=== PATIENT | female | born 1950 | race Two or more races ===

== ENCOUNTER 2023-03-12 12:04 | Emergency (ER) | payer MEDICARE, SELFPAY ==
[2023-03-12 12:11] VITALS: BP 179/91; PULSE 72; RESP 16; TEMP 36.6; O2SAT 97; BMI 34.4
--- NOTE | 2023-03-12 12:20 | ED.GENADUL1 ---
HPI - General Adult General Chief complaint: Back Pain/Injury Stated complaint: FLANK PAIN Time Seen by Provider: 03/12/23 12:07 Source: patient Mode of arrival: walk-in Limitations: no limitations History of Present Illness HPI narrative: Nurses notes and vital signs reviewed and patient is not hypoxic. afebrile General: Well-appearing and in no apparent distress. Skin: Warm, dry, no pallor noted. No rash to flank or abdomen. Head: Normocephalic, atraumatic. Eye: Pupils are equal, round and EOMI. No scleral icterus. Cardiovascular: Regular Rate and Rhythm without murmur, gallop or rub. Respiratory: No accessory muscle use or respiratory distress. Lungs are clear to auscultation, no wheezing, rales or rhonchi Back: No midline thoracic or lumbar vertebral tenderness. Bilateral CVA tenderness - right greater than left Musculoskeletal: normal ROM, no calf or popliteal tenderness, no lower extremity edema/swelling GI: Abdomen is soft, non-distended. Normal bowel sounds. No tenderness to palpation. No rebound, guarding, or rigidity noted. Neurological: A&O x4. No cranial nerve dysfunction observed. No truncal ataxia. Moves all extremities. Sensation intact. Psychiatric: Cooperative and interactive. Normal mood and affect. Related Data Home Medications Medication Instructions Recorded Confirmed fostamatinib 100 mg tablet 100 mg PO BID 03/12/23 03/12/23 (Tavalisse) hydrochlorothiazide 25 mg tablet 25 mg PO DAILY 03/12/23 03/12/23 losartan 25 mg tablet 50 mg PO DAILY 03/12/23 03/12/23 pilocarpine HCl 5 mg tablet 5 mg PO TID 03/12/23 03/12/23 spironolactone 25 mg tablet 25 mg PO DAILY 03/12/23 03/12/23 Previous Rx's Medication Instructions Recorded methocarbamol 750 mg tablet 750 mg PO Q6H PRN pain #20 tabs 03/12/23 nabumetone 750 mg tablet 750 mg PO BID PRN pain #14 tabs 03/12/23 Allergies Allergy/AdvReac Type Severity Reaction Status Date / Time vancomycin AdvReac Mild Verified 03/12/23 12:11 PFSH PFSH Social History Smoking status: Current every day smoker Exam Constitutional Vital Signs, click to edit/add: Last Vital Signs Temp 97.9 F 03/12/23 12:11 Pulse 72 03/12/23 12:11 Resp 16 03/12/23 12:11 BP 179/91 H 03/12/23 12:11 Pulse Ox 97 03/12/23 12:11 O2 Del Method Room Air 03/12/23 12:11 Course Vital Signs Vital signs: Vital Signs Temperature 97.9 F 03/12/23 12:11 Pulse Rate 72 03/12/23 12:11 Respiratory Rate 16 03/12/23 12:11 Blood Pressure 179/91 H 03/12/23 12:11 Pulse Oximetry 97 03/12/23 12:11 Oxygen Delivery Method Room Air 03/12/23 12:11 Temperature 97.9 F 03/12/23 12:11 Pulse Rate 72 03/12/23 12:11 Respiratory Rate 16 03/12/23 12:11 Blood Pressure 179/91 H 03/12/23 12:11 Pulse Oximetry 97 03/12/23 12:11 Oxygen Delivery Method Room Air 03/12/23 12:11 Medical Decision Making MDM Narrative Medical decision making narrative: peripheral IV established and blood drawn and sent for testing. Patient was ordered to give a urine sample as well. She received normal saline IV fluid, IV Zofran and low-dose IV Dilaudid. She was sent for CT scanning of the abdomen pelvis without contrast. CBC and CMP were unremarkable. UA was negative. CT did not show any obstructive uropathy or other reasons for the patient's pain. Incidental finding of renal cysts - patient given copy of CT report so that she can see her PCP for follow up and non emergent kidney US. Patient informed of results and discharged home with prescriptions for Relafen and Robaxin. Lab Data Lab results reviewed: Yes I reviewed the patient's lab results Labs: Lab Results 03/12/23 Range/Units 12:25 WBC 5.1 (4.0-11.0) 10^3/uL RBC 3.68 L (4.20-5.40) 10^6/uL Hgb 11.3 L (12.0-16.0) g/dL Hct 34.9 L (36.0-48.0) % MCV 94.8 (81.0-99.0) fL MCH 30.7 (26.7-34.0) pg MCHC 32.4 (29.9-35.2) g/dL RDW 14.4 (11.0-15.0) % Plt Count 117 L (150-450) 10^3/uL MPV 9.3 L (9.5-13.5) fL Neut % (Auto) 45.6 (43.0-75.0) % Lymph % (Auto) 48.3 (20.5-60.0) % [place] % (Auto) 4.7 (1.7-12.0) % Eos % (Auto) 0.8 L (0.9-7.0) % Baso % (Auto) 0.4 (0.2-2.0) % Neut # (Auto) 2.3 (1.4-6.5) 10^3/uL Lymph # (Auto) 2.5 (1.2-3.8) 10^3/uL [place] # (Auto) 0.2 L (0.3-0.8) 10^3/uL Eos # (Auto) 0.0 (0.0-0.7) 10^3/uL Baso # (Auto) 0.0 (0.0-0.1) 10^3/uL Abs Immat Gran (auto) 0.01 (0.00-0.03) 10^3/uL Imm/Tot Granulo (auto) 0.2 (0.0-0.5) % Sodium 137 (136-145) mmol/L Potassium 4.1 (3.5-5.1) mmol/L Chloride 103 (98-107) mmol/L Carbon Dioxide 24.6 (21.0-32.0) mmol/L Anion Gap 13.5 BUN 21.0 H (7.0-18.0) mg/dL Creatinine 1.06 H (0.55-1.02) mg/dL Est GFR ( Amer) >60 (>=60) Est GFR (Non-Af Amer) 51 L (>=60) BUN/Creatinine Ratio 19.8 Glucose 134 H (74-106) mg/dL Calcium 8.9 (8.5-10.1) mg/dL Total Bilirubin 0.5 (0.2-1.0) mg/dL AST 40 H (15-37) U/L ALT 39 (14-59) U/L Alkaline Phosphatase 71 (46-116) U/L Total Protein 7.9 (6.4-8.2) g/dL Albumin 3.1 L (3.4-5.0) g/dL Globulin 4.8 g/dL Albumin/Globulin Ratio 0.6 Urine Color Lt. yellow (YELLOW) Urine Clarity Clear (CLEAR) Urine pH 6.0 (5.0-9.0) Ur Specific [place] 1.020 (1.005-1.025) Urine Protein Negative (NEG/TRACE) mg/dL Urine Glucose (UA) Negative (NEGATIVE) mg/dL Urine Ketones Negative (NEGATIVE) mg/dL Urine Occult Blood Trace-i (NEGATIVE) Urine Nitrite Negative (NEGATIVE) Urine Bilirubin Negative (NEGATIVE) Urine Urobilinogen 1.0 (0.2-1.0) EU/dL Ur Leukocyte Esterase Negative (NEGATIVE) Urine RBC 0-2 (0-2) #/HPF Urine WBC 0-2 A (NONE SEEN) #/HPF Ur Squamous Epith Cells Few A (NONE/RARE) #/LPF Urine Crystals None seen (None Seen) #/HPF Urine Bacteria Small A (NONE SEEN) #/HPF Urine Casts None seen (NONE SEEN) #/LPF Urine Mucus None seen (NONE SEEN) Ur Culture Indicated? Yes Imaging Data CT scan - abdomen: Radiologist's impression: Patient Name: JASPREET LEO MRN: [facility]:[id number] date: 1950 Sex: F Assigned Patient Location: ER Current Patient Location: ED.MAIN Accession/Order Number: [id number] Exam Date: 03/12/2023 12:30 Report Date: 03/12/2023 13:11 At the request of: IAM EPPERSON Procedure: CT abdomen pelvis wo con CT ABDOMEN AND PELVIS WITHOUT CONTRAST: 03/12/2023 12:30 PM EDT Clinical Data: bilateral flank pain Comparison: No previous Unenhanced helically acquired data per protocol. The lack of IV contrast material hampers evaluation of the viscera, for adenopathy, and of the vasculature. The lack of oral contrast medium to some extent hampers evaluation of the bowel. All CT scans at this facility use dose modulation, iterative reconstruction, and/or weight based dosing when appropriate to reduce radiation dose to as low as reasonably achievable. FINDINGS: LOWER THORAX: Unremarkable. LIVER: No acute findings. SPLEEN: No acute findings. GB/BILIARY: Gallbladder is not seen and is presumably surgically absent. Biliary tree is not dilated. PANCREAS: No acute findings. ADRENALS: No acute findings. KIDNEYS/URETERS: Kidneys are symmetric in size and overall density on this unenhanced study. There are hypodense foci bilaterally. Off the mid pole the right kidney and extending laterally there is a 23 mm focus. Off the lower pole of the left kidney and extending inferolaterally is a 15 mm focus which contains small focus of calcification along its inferior aspect. Off the far inferior pole of the left kidney there is an exophytic low-density focus measuring 9 mm. There is a tiny hyperdense focus far peripherally in the midpole right kidney. There are renal vascular calcifications on the left. No calculi. No hydronephrosis or hydroureter. There is no evidence of perinephric stranding. VESSELS: Infrarenal AAA measuring 31 mm. ABDOMINAL NODES: No obvious adenopathy. PELVIC NODES: No obvious adenopathy. BLADDER: Nearly empty. No calculi REPRODUCTIVE: Uterus is absent. The ovaries are difficult to discern as distinct densities. They may be significantly atrophied or have been resected. PERITONEUM: No free air. No free fluid. EXTRAPERITONEUM: No acute findings. BOWEL: No GI obstruction. No focally thickened loop of bowel is evident on this study performed without oral contrast medium. BODY WALL: Thin and lax. No distinct evidence of hernia BONES: No acute findings. OTHER: No acute findings. IMPRESSION: 1. No calculi. No hydronephrosis or hydroureter. 2. Reasonably well-defined renal hypodensities. These most likely represent cysts but follow-up limited ultrasound to further evaluate/confirm. Tiny hyperdensity peripherally in the right kidney may represent a very small cyst containing proteinaceous/hemorrhagic material. 3. No GI obstruction. No focally thickened loop of bowel. 4. No fluid collections in the abdomen or pelvis. 5. Infrarenal 31 mm AAA.. Electronically authenticated by: PHIL PAINTER Date: 03/12/2023 13:11 Discharge Plan Discharge Chief Complaint: Back Pain/Injury Clinical Impression: Back pain Patient Disposition: Home, Self-Care Time of Disposition Decision: 13:38 Prescriptions / Home Meds: New methocarbamol 750 mg tablet 750 mg PO Q6H PRN (Reason: pain) Qty: 20 0RF nabumetone 750 mg tablet 750 mg PO BID PRN (Reason: pain) Qty: 14 0RF No Action spironolactone 25 mg tablet 25 mg PO DAILY Tavalisse 100 mg tablet 100 mg PO BID hydrochlorothiazide 25 mg tablet 25 mg PO DAILY pilocarpine HCl 5 mg tablet 5 mg PO TID losartan 25 mg tablet 50 mg PO DAILY Instructions: Back Pain (ED) Stand Alone Forms: Portal Instructions Referrals: Shaikh Biswas MD [Primary Care Provider] - 1 week
[2023-03-12 12:31] LABS: Bilirubin Urine NEGATIVE (NEGATIVE); Blood Urine TRACE-I (NEGATIVE); Clarity Urine CLEAR (CLEAR); Color Urine LT. YELLOW (YELLOW); Glucose Urine UA NEGATIVE (NEGATIVE); Ketones Urine NEGATIVE (NEGATIVE); Leukocyte Esterase Urine NEGATIVE (NEGATIVE); Nitrite Urine NEGATIVE (NEGATIVE); Protein Urine NEGATIVE (NEG/TRACE)
[2023-03-12 12:33] LABS: Basophils Percent Auto 0.4 % (0.2-2.0); Eosinophils Percent Auto 0.8 % (0.9-7.0); Hematocrit 34.9 % (36.0-48.0); Hemoglobin 11.3 g/dL (12.0-16.0); Immature Granulocytes Abs Auto 0.01 10^3/uL (0.00-0.03); Immature Granulocytes Pct Auto 0.2 % (0.0-0.5); Lymphocytes Absolute Auto 2.5 10^3/uL (1.2-3.8); Lymphocytes Percent Auto 48.3 % (20.5-60.0); Mean Corpuscular HGB Conc 32.4 g/dL (29.9-35.2); Mean Corpuscular Hemoglobin 30.7 pg (26.7-34.0); Mean Corpuscular Volume 94.8 fL (81.0-99.0); Mean Platelet Volume 9.3 fL (9.5-13.5); Monocytes Absolute Auto 0.2 10^3/uL (0.3-0.8); Monocytes Percent Auto 4.7 % (1.7-12.0); Neutrophils Absolute Auto 2.3 10^3/uL (1.4-6.5); Neutrophils Percent Auto 45.6 % (43.0-75.0); Platelet Count 117 10^3/uL (150-450); Red Blood Count 3.68 10^6/uL (4.20-5.40); Red Cell Distribution Width 14.4 % (11.0-15.0); White Blood Count 5.1 10^3/uL (4.0-11.0)
[2023-03-12 12:41] LABS: Urine Microscopic Indicated YES
[2023-03-12] MEDS: 0.9 % SODIUM CHLORIDE 1,000 ML 999 ML IV (12:44)
[2023-03-12] MEDS: ONDANSETRON PF 4 MG/2 ML VIAL IV (12:44)
[2023-03-12] MEDS: HYDROMORPHONE HCL 0.5 MG/0.5 ML SYRINGE IV (12:44)
[2023-03-12 12:51] LABS: Alanine Aminotransferase 39 U/L (14-59); Albumin Globulin Ratio 0.6; Albumin Level 3.1 g/dL (3.4-5.0); Alkaline Phosphatase 71 U/L (46-116); Anion Gap 13.5; Aspartate Amino Transferase 40 U/L (15-37); BUN Creatinine Ratio 19.8; Bilirubin Total 0.5 mg/dL (0.2-1.0); Calcium 8.9 mg/dL (8.5-10.1); Carbon Dioxide 24.6 mmol/L (21.0-32.0); Chloride 103 mmol/L (98-107); Estimated GFR (African America >60 (>=60); Estimated GFR (Non-African Ame 51 (>=60); Globulin 4.8 g/dL; Glucose 134 mg/dL (74-106); Potassium 4.1 mmol/L (3.5-5.1); Sodium 137 mmol/L (136-145); Total Protein 7.9 g/dL (6.4-8.2)
[2023-03-12 12:55] LABS: Bacteria Urine SMALL #/HPF (NONE SEEN); Cast Seen? NONE SEEN #/LPF (NONE SEEN); Crystals Seen? None Seen #/HPF (None Seen); Mucus Urine NONE SEEN (NONE SEEN); RBC Urine 0-2 #/HPF (0-2); Squamous Epithelial Cell Urine FEW #/LPF (NONE/RARE); Urine Culture Indicated YES; WBC Urine 0-2 #/HPF (NONE SEEN)
== END 2023-03-12 13:52 | disposition home or self-care (01) ==
PROVIDERS: Emergency Provider Emergency Medicine; PCP Internal Medicine
DX: M54.9 Dorsalgia, unspecified (principal); Z79.899 Other long term (current) drug therapy; F17.210 Nicotine dependence, cigarettes, uncomplicated
CPT/HCPCS: 36415; 74176; 80053; 81001; 85025; 87086; 96374; 96375; 99285; J1170

== ENCOUNTER 2023-03-29 09:40 | Outpatient (OUT) | payer MEDICARE, SELFPAY ==
--- NOTE | 2023-03-29 09:45 | US_ITS ---
The [address] [address] Patient Name: JASPREET LEO MRN: [id number] date: 1950 Sex: F Assigned Patient Location: Current Patient Location: US Accession/Order Number: [id number] Exam Date: 03/29/2023 10:08 Report Date: 03/29/2023 11:52 At the request of: CATALINA ARRIOLA Procedure: US renal BI EXAM: Renal and bladder ultrasound CLINICAL INDICATION: N28.1. TECHNIQUE: Grayscale and color Doppler imaging was obtained of both kidneys. FINDINGS: RIGHT: No hydronephrosis. Cortical echogenicity and thickness is preserved. The kidney measures 9.7 x 4.9 x 3.9 cm length. No sonographically evident renal calculi. No abnormal renal masses identified. Renal cyst measuring up to 2.3 cm. LEFT: No hydronephrosis. Cortical echogenicity and thickness is preserved. The kidney measures 10.4 x 3.9 x 4.7 cm length. No sonographically evident renal calculi. No abnormal renal masses identified. Renal cyst measuring up to 1.8 cm with tiny calcifications along the cyst wall. Bladder: No obvious sonographic abnormality. US/US renal BI IMPRESSION: 1. Normal-sized kidneys without hydronephrosis. 2. Small bilateral renal cysts, one with calcifications along the wall on the left. Electronically authenticated by: ALICIA TUTTLE Date: 03/29/2023 11:52
== END 2023-03-29 09:41 | disposition home or self-care (01) ==
LOC: US 09:41
PROVIDERS: PCP Internal Medicine; Visit Provider Internal Medicine
DX: N28.1 Cyst of kidney, acquired (principal)
CPT/HCPCS: 76775

== ENCOUNTER 2023-05-17 14:24 | Outpatient (OUT) | payer MEDICARE, SELFPAY ==
--- NOTE | 2023-05-17 14:29 | MM_ITS ---
Patient Name: JASPREET LEO MR#: [id number] : 1950 Exam Date: 05/17/2023 Ordering Doctor: STEPH Dumont CNP RADIOLOGY REPORT PROCEDURE: MM TOMOSYNTHESIS SCREENING BI COMPARISON: MM DIAGNOSTIC MAMMO BI, 07/08/2015. MM DIAGNOSTIC MAMMO BI, 05/16/2014. 03/28/2017. MM DIAGNOSTIC MAMMO UNILAT LT, 02/24/2017. MM SCREENING MAMMO BI, 02/17/2017. INDICATIONS: Screening Calculator Name NCI Breast Cancer Risk Assessment Tool 5 Year Breast Cancer Risk 3.40% Lifetime Breast Cancer Risk 8.70% Personal Breast Cancer No Personal Ovarian Cancer No Treatments None Family Cancers Sister with breast cancer at age 66; Brother with nasal cancer at age 56; Father with bone cancer at age 62. LOCATION: [facility] BREAST COMPOSITION: Heterogeneously dense,which may obscure small masses. FINDINGS: DIAGNOSTIC CATEGORY 2--BENIGN FINDING: RIGHT BREAST: No significant suspicious finding. Scattered benign-appearing calcifications are present. No significant change has occurred. LEFT BREAST: No significant suspicious finding. Scattered benign-appearing calcifications are present. Stable postsurgical changes. No significant change has occurred. RECOMMENDATIONS: ROUTINE MAMMOGRAM AND CLINICAL EVALUATION IN 12 MONTHS. PLEASE NOTE: A NORMAL MAMMOGRAM DOES NOT EXCLUDE THE POSSIBILITY OF BREAST CANCER. A CLINICALLY SUSPICIOUS PALPABLE LUMP SHOULD BE BIOPSIED. Dictated by: Simon Zuniga M.D. on 05/19/2023 at 11:24 Approved by: Simon Zuniga M.D. on 05/19/2023 at 11:29
--- OUTSIDE RECORDS SUMMARY | 2023-06-27 15:43 | XMS_ITS | CCD ---
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 Name Role Phone COTY WRIGHT Unavailable Unavailable KYLECOTY Guallpa Unavailable Unavailable VANCE SCHERER Unavailable Unavailable VANCE SCHERER Unavailable Unavailable Unavailable Primary Care Provider Unavailaudrey e Paloma Saldaña Primary Care Provider [phone] Gilson Sarah Unavailable Unavailable Primary Care Provider Unavailaudrey e Unavailable Primary Care Provider UnavailMD Gilson Galvez Attending Provider [phone] NON STAFF Primary Care Provider Unavailaudrey e NON STAFF Primary Care Unavailable Gilson Sarah Attending Unavailable Gilson Sarah Admitting Unavailable Feroz Biswas MDikh Primary Care Provider Stephanie Dumont Primary Care Provider [phone] JAYDEN CONNELLY Referring Unavailable ABHYANKAR, RINKU Referring Unavailable ABHYANKAR, RINKU Attending Unavailable JAYDEN CONNELLY Referring Unavailable ABHYARNOLDOAR, RINKU Referring Unavailable ABHYARNOLDOARRINKU Attending Unavailable JAYDEN CONNELLY Referring Unavailable ABHYANKAR, RINKU Referring Unavailable ANA HERNANDEZ Attending Unavailable ABHYANKAR, RINKU Referring Unavailable JAYDEN CONNELLY Attending Unavailable ABHYANKARRINKU Attending Unavailable FAWWAD, CONDON Primary Care Unavailable ABHYANKAR, RINKU Referring Unavailable FAWWAD, CONDON Primary Care Unavailable JAYDEN CONNELLY Referring Unavailable FAWWAD, CONDON Primary Care Unavailable ABHYANKAR, RINKU Attending Unavailable ABHYANKAR, RINKU Referring Unavailable FAWWAD, CONDON Primary Care Unavailable JAYDEN CONNELLY Referring Unavailable JAYDEN CONNELLY Referring Unavailable ABHYANKAR, RINKU Attending Unavailable ABHYANKAR, RINKU Referring Unavailable JAYDEN CONNELLY Referring Unavailable FAWWAD, CONDON Primary Care Unavailable JAYDEN CONNELLY Referring Unavailable ABHYANKAR, RINKU Referring Unavailable MARLENY RAMSEYEK Attending Unavailable SHAIKH BISWAS Primary Care Unavailable JAYDEN CONNELLY Referring Unavailable ABHYANKAR, RINKU Referring Unavailable ABFERAR, RINKU Attending Unavailable STEPHANIE DUMONT Attending Unavailable Allergies Allergy Classification Reported Allergen(s) Allergy Type Date of Onset Reaction(s) Facility (1 source) codeine; Translations: [CODEINE PHOSPHATE] Drug Allergy 9 [facility] Repository (1 source) codeine; Translations: [CODEINE SULFATE] Drug Allergy 9 [facility] Repository (1 source) VANCOMYCIN AND DERIVATIVES; Translations: [VANCOMYCIN AND DERIVATIVES] Propensity to adverse reactions (disorder) 9 [facility] Repository (20 sources) Vancomycin; Translations: [VANCOMYCIN] Drug Allergy 6 Unknown [facility] (6 sources) Tetanus Vaccines And Toxoid; Translations: [TETANUS VACCINES AND TOXOID] Drug Allergy 6 Unknown [facility] (1 source) Tetanus vaccine Drug allergy Unknown [facility] Other (20 sources) Tetanus Vaccines And Toxoid Drug Allergy 6 Unknown [facility] (3 sources) Tetanus vaccine Drug allergy Unknown [facility] Other Medications Current Medications Medication Drug Class(es) Dates Sig (Normalized) Sig (Original) losartan potassium 25 mg oral tablet (20 sources) Angiotensin 2 Receptor Natividad Start: 03-30-2022 End: 03-09-2024 take 2 tablets by mouth once daily at bedtime losartan (COZAAR) 25 mg tablet Indications: Hypertension, unspecified type Take 2 tablets by mouth daily at bedtime. 180 tablet 3 09/23/2022 03/09/2024 Active Start: 02-06-2022 End: 03-07-2022 take 2 tablets by mouth once daily losartan (COZAAR) 25 mg tablet Indications: Hypertension, unspecified type TAKE 2 TABLETS BY MOUTH EVERY DAY 60 tablet 1 02/06/2022 03/07/2022 Discontinued Start: 01-17-2022 End: 02-06-2022 take 1 tablet by mouth once daily losartan (COZAAR) 25 mg tablet Indications: Hypertension, unspecified type TAKE 1 TABLET BY MOUTH EVERY DAY 90 tablet 3 01/17/2022 02/06/2022 Discontinued Start: 12-17-2021 End: 01-17-2022 take 2 tablets by mouth once daily losartan (COZAAR) 25 mg tablet Indications: Hypertension, unspecified type TAKE 2 TABLETS BY MOUTH EVERY DAY 60 tablet 1 01/11/2022 01/17/2022 Discontinued Start: 07-28-2021 End: 12-17-2021 take 1 tablet by mouth once daily losartan (COZAAR) 25 mg tablet Indications: Hypertension, unspecified type TAKE 1 TABLET BY MOUTH EVERY DAY 30 tablet 2 10/19/2021 12/17/2021 Discontinued Comment on above: TAKE 1 TABLET BY DARLING TH EVERY DAY Take 1 tablet by darling th once daily. Take 2 tablets by mo uth once daily. TAKE 2 TABLETS BY MO UTH EVERY DAY Take 2 tablets by mo uth daily at bedtime. Completed/Discontinued Medications Medication Drug Class(es) Dates Sig (Normalized) Sig (Original) amoxicillin 875 mg / clavulanate 125 mg oral tablet (1 source) Penicillin-class Antibacterial Start: 04-29-2021 End: 05-13-2021 take 1 tablet by mouth twice daily amoxicillin-clav ulanic acid (AUGMENTIN) 875-125 mg per tablet Indications: Malaise and fatigue , Acute frontal sinusitis, recurrence not specified Take 1 tablet by mouth twice daily for 14 days. 28 tablet 0 04/29/2021 05/13/2021 Comment on above: Take 1 tablet by darling th twice daily for 14 days. benzonatate 100 mg oral capsule (20 sources) Non-narcotic Antitussive Start: 09-16-2021 End: 07-25-2022 take 1 capsule by mouth every six hours as needed benzonatate (TESSALON PERLE) 100 mg capsule TAKE 1 CAPSULE BY MOUTH EVERY 6 HOURS NEEDED FOR COUGH. 100 capsule 0 07/25/2022 Active Comment on above: Take 1 capsule by mo uth every 6 hours as needed for cough. cholecalciferol, vitamin D3, (VITAMIN D3 ORAL) (20 sources) cholecalciferol, vitamin D3, (VITAMIN D3 ORAL) Take by mouth. 0 Active Comment on above: Take by mouth. fostamatinib 100 mg oral tablet (20 sources) Start: 04-29-2021 End: 05-01-2023 take 1 tablet by mouth twice daily fostamatinib (TAVALISSE) 100 mg tablet Take 1 tablet by mouth two times a day. 60 tablet 11 05/01/2023 Active Comment on above: Take 100 mg by mouth twice daily. Take 1 tablet by darling th twice daily for 15 days. Take 1 tablet by darling th twice daily. Take 1 tablet by darling th two times a day. furosemide 20 mg oral tablet (1 source) Loop Diuretic End: 07-16-2021 furosemide (LASIX) 20 mg tablet Take 20 mg by mouth as needed. 0 07/16/2021 Discontinued (Discontinued by Patient) Comment on above: Take 20 mg by mouth as needed. hydroCHLOROthiazide 25 mg oral tablet (20 sources) Thiazide Diuretic Start: 01-26-2023 take 1 tablet by mouth once daily hydroCHLOROthiazide 25 mg tablet Indications: Essential hypertension , Chronic ITP (idiopathic thrombocytopenia) (HCC) , Obstructive sleep apnea syndrome TAKE 1 TABLET BY MOUTH EVERY DAY 90 tablet 3 01/26/2023 Active Start: 07-28-2021 End: 01-17-2022 take 1 tablet by mouth once daily hydroCHLOROthiazide (HYDRODIURIL, ESIDRIX) 25 mg tablet Indications: Essential hypertension , Chronic ITP (idiopathic thrombocytopenia) (HCC) , Obstructive sleep apnea syndrome TAKE 1 TABLET BY MOUTH EVERY DAY 90 tablet 3 01/17/2022 Active Comment on above: TAKE 1 TABLET BY DARLING TH EVERY DAY Take 1 tablet by darling th once daily. ibuprofen 200 mg oral tablet (1 source) Nonsteroidal Anti-inflammatory Drug End: 07-16-2021 take 1 tablet by mouth every six hours as needed ibuprofen (MOTRIN) 200 mg tablet Take 200 mg by mouth every 6 hours as needed. 0 07/16/2021 Discontinued (Discontinued by Patient) Comment on above: Take 200 mg by mouth every 6 hours as needed. lisinopril 10 mg oral tablet (1 source) Angiotensin Converting Enzyme Inhibitor Start: 04-29-2021 End: 05-13-2021 take 1 tablet by mouth once daily lisinopril (ZESTRIL, PRINIVIL) 10 mg tablet Indications: Secondary hypertension Take 1 tablet by mouth once daily. 30 tablet 1 04/29/2021 05/13/2021 Discontinued Comment on above: Take 1 tablet by darling th once daily. Magnesium (1 source) End: 07-16-2021 MAGNESIUM ORAL Take by mouth . 0 07/16/2021 Discontinued (Discontinued by Patient) Comment on above: Take by mouth. pilocarpine hydrochloride 5 mg oral tablet (20 sources) Cholinergic Receptor Agonist Start: 01-27-2023 take 1 tablet by mouth three times daily pilocarpine (SALAGEN) 5 mg tablet TAKE 1 TABLET BY MOUTH THREE TIMES A DAY 270 tablet 1 01/27/2023 Active Start: 07-20-2022 End: 10-26-2022 take 1 tablet by mouth three times daily pilocarpine (SALAGEN) 5 mg tablet TAKE 1 TABLET BY MOUTH THREE TIMES A DAY 90 tablet 3 10/26/2022 Active Start: 03-30-2022 End: 06-23-2022 take 1 tablet by mouth three times daily pilocarpine (SALAGEN) 5 mg tablet TAKE 1 TABLET BY MOUTH THREE TIMES A DAY 90 tablet 0 06/23/2022 Active Start: 02-11-2022 End: 03-07-2022 take 1 tablet by mouth three times daily pilocarpine (SALAGEN) 5 mg tablet TAKE 1 TABLET BY MOUTH THREE TIMES A DAY 90 tablet 0 03/07/2022 Active Comment on above: Take 1 tablet by darling th three times daily. TAKE 1 TABLET BY DARLING TH THREE TIMES A DAY spironolactone 25 mg oral tablet (17 sources) Aldosterone Antagonist Start: 09-07-2022 take 1 tablet by mouth once daily spironolactone (ALDACTONE) 25 mg tablet Take 25 mg by mouth once daily. 0 09/07/2022 Active Comment on above: Take 25 mg by mouth once daily. Zinc (1 source) End: 07-16-2021 ZINC ORAL Take by mouth. 0 0 07/16/2021 Discontinued (Discontinued by Patient) Comment on above: Take by mouth. Problems Active Problems Problem Classification Problem Date Documented Date Episodic/Chronic Coagulation and hemorrhagic disorders (20 sources) Chronic idiopathic thrombocytopenic purpura; Translations: [Immune thrombocytopenic purpura] Onset: 03-03-2016 Resolved: 11-10-2021 Chronic Deficiency and other anemia (1 source) Anemia, unspecified Episodic Essential hypertension (20 sources) Essential hypertension; Translations: [Essential (primary) hypertension] Onset: 05-13-2021 Resolved: 11-10-2021 Chronic Malaise and fatigue (1 source) Malaise and fatigue; Translations: [Other malaise] Episodic Other connective tissue disease (20 sources) Cramp in lower limb; Translations: [Sleep related leg cramps] Onset: 10-05-2017 10-05-2017 Chronic Other diseases of kidney and ureters (3 sources) Cyst of kidney, acquired; Translations: [Cyst of kidney, acquired] Onset: 08-29-2022 Episodic Other lower respiratory disease (2 sources) Multiple nodules of lung; Translations: [Other nonspecific abnormal finding of lung field] Episodic Other skin disorders (1 source) Mass of skin of right lower limb; Translations: [Disorder of the skin and subcutaneous tissue, unspecified] Episodic Residual codes; unclassified (20 sources) Obstructive sleep apnea syndrome; Translations: [Obstructive sleep apnea (adult) (pediatric)] Onset: 05-13-2021 Chronic Residual codes; unclassified (3 sources) Obstructive sleep apnea (adult) (pediatric); Translations: [Obstructive sleep apnea (adult) (pediatric)] Onset: 11-10-2021 Resolved: 11-10-2021 Chronic Systemic lupus erythematosus and connective tissue disorders (20 sources) Lupus erythematosus; Translations: [Systemic lupus erythematosus, unspecified] Onset: 03-03-2016 Resolved: 11-10-2021 03-03-2016 Chronic Unclassified (2 sources) Unknown / UNK(Unknown) Onset: 05-24-2016 Past or Other Problems Problem Classification Problem Date Documented Da te Episodic/Chronic Other bone disease and musculoskeletal deformities (5 sources) Disorder of bone, unspecified; Translations: [Other specified disorders of bone, lower leg] Onset: 05-24-2016 Episodic Other connective tissue disease (1 source) Pain in right leg; Translations: [PAIN IN RIGHT LEG] Onset: 05-24-2016 Episodic Other nutritional; endocrine; and metabolic disorders (20 sources) Abnormal weight loss; Translations: [Abnormal weight loss] Onset: 03-03-2016 03-03-2016 Episodic Residual codes; unclassified (20 sources) Family history of breast cancer; Translations: [Family history of malignant neoplasm of breast] Onset: 04-13-2017 04-13-2017 Episodic Results Test Name Value Interpretation Reference Range Facil ity CBC W Auto Differential pane l (Bld)on 06-05-2023 Basophils (Bld) [#/Vol] 10*3/uL Normal <0.11 [facility] Comment on above: Order Comment: Speci men Type: BLOOD SPECIMENOrdering Facility: [facility] Address: [address] [place] [address] Performed By: #### 5 7021-8 ####[facility] LABCLIA [id number] [place] [address] Basophils/100 WBC (Bld) 0.2 % Normal [facility] Comment on above: Order Comment: Speci men Type: BLOOD SPECIMENOrdering Facility: [facility] Address: [address] [place] [address] Performed By: #### 5 7021-8 ####[facility] LABCLIA [id number] [place] [address] Differential cell count method Nom (Bld) Auto Normal [facility] Comment on above: Order Comment: Speci men Type: BLOOD SPECIMENOrdering Facility: [facility] Address: [address] [place] [address] Performed By: #### 5 7021-8 ####[facility] LABCLIA [id number] [place] [address] Eosinophils (Bld) [#/Vol] 0.04 10*3/uL Normal <0.46 [facility] Comment on above: Order Comment: Speci men Type: BLOOD SPECIMENOrdering Facility: [facility] Address: [address] [place] [address] Performed By: #### 5 7021-8 ####[facility] LABCLIA [id number] [place] [address] Eosinophils/100 WBC (Bld) 0.9 % Normal [facility] Comment on above: Order Comment: Speci men Type: BLOOD SPECIMENOrdering Facility: [facility] Address: [address] [place] [address] Performed By: #### 5 7021-8 ####[facility] LABCLIA [id number] [place] [address] Erythrocyte distribution wid th (RBC) [Ratio] 14.4 % Normal 11.5-15.0 [facility] Comment on above: Order Comment: Speci men Type: BLOOD SPECIMENOrdering Facility: [facility] Address: [address] [place] [address] Performed By: #### 5 7021-8 ####[facility] LABCLIA [id number] [place] [address] Hematocrit (Bld) [Volume fraction] 34.0 % Low 3 6.0-46.0 [facility] Comment on above: Order Comment: Speci men Type: BLOOD SPECIMENOrdering Facility: [facility] Address: [address] [place] [address] Performed By: #### 5 7021-8 ####[facility] LABCLIA [id number] [place] [address] Hemoglobin (Bld) [Mass/Vol] 11.0 g/dL Low 11.5-15. 5 [facility] Comment on above: Order Comment: Speci men Type: BLOOD SPECIMENOrdering Facility: [facility] Address: [address] [place] [address] Performed By: #### 5 7021-8 ####[facility] LABCLIA [id number] [place] [address] Immature granulocytes (Bld) [#/Vol] 10*3/uL Normal <0.10 [facility] Comment on above: Order Comment: Speci men Type: BLOOD SPECIMENOrdering Facility: [facility] Address: [address] [place] [address] Performed By: #### 5 7021-8 ####[facility] LABCLIA [id number] [place] [address] Immature granulocytes/100 WBC (Bld) 0.2 % Normal [facility] Comment on above: Order Comment: Speci men Type: BLOOD SPECIMENOrdering Facility: [facility] Address: [address] [place] [address] Performed By: #### 5 7021-8 ####[facility] LABCLIA [id number] [place] [address] Lymphocytes (Bld) [#/Vol] 2.31 10*3/uL Normal 1.00-4.[address] [facility] Comment on above: Order Comment: Speci men Type: BLOOD SPECIMENOrdering Facility: [facility] Address: [address] [place] [address] Performed By: #### 5 7021-8 ####[facility] LABCLIA [id number] [place] [address] Lymphocytes/100 WBC (Bld) 49.8 % Normal [facility] Comment on above: Order Comment: Speci men Type: BLOOD SPECIMENOrdering Facility: [facility] Address: [address] [place] [address] Performed By: #### 5 7021-8 ####[facility] LABCLIA [id number] [place] [address] MCH (RBC) [Entitic mass] 31.5 pg Normal 26.0-34.0 [facility] Comment on above: Order Comment: Speci men Type: BLOOD SPECIMENOrdering Facility: [facility] Address: [address] [place] [address] Performed By: #### 5 7021-8 ####[facility] LABCLIA [id number] [place] [address] MCHC (RBC) [Mass/Vol] 32.4 g/dL Normal 30.5-36.0 [facility] Comment on above: Order Comment: Speci men Type: BLOOD SPECIMENOrdering Facility: [facility] Address: [address] [place] [address] Performed By: #### 5 7021-8 ####[facility] LABCLIA [id number] [place] [address] MCV (RBC) [Entitic vol] 97.4 fL Normal 80.0-100.0 C [facility] Comment on above: Order Comment: Speci men Type: BLOOD SPECIMENOrdering Facility: [facility] Address: [address] [place] [address] Performed By: #### 5 7021-8 ####[facility] LABCLIA [id number] [place] [address] Monocytes (Bld) [#/Vol] 0.24 10*3/uL Normal <0.87 [facility] Comment on above: Order Comment: Speci men Type: BLOOD SPECIMENOrdering Facility: [facility] Address: [address] [place] [address] Performed By: #### 5 7021-8 ####[facility] LABCLIA [id number] [place] [address] Monocytes/100 WBC (Bld) 5.2 % Normal [facility] Comment on above: Order Comment: Speci men Type: BLOOD SPECIMENOrdering Facility: [facility] Address: [address] [place] [address] Performed By: #### 5 7021-8 ####[facility] LABCLIA [id number] [place] [address] Neutrophils (Bld) [#/Vol] 2.03 10*3/uL Normal 1.45-7.[address] [facility] Comment on above: Order Comment: Speci men Type: BLOOD SPECIMENOrdering Facility: [facility] Address: [address] [place] [address] Performed By: #### 5 7021-8 ####[facility] LABCLIA [id number] [place] [address] Neutrophils/100 WBC (Bld) 43.7 % Normal [facility] Comment on above: Order Comment: Speci men Type: BLOOD SPECIMENOrdering Facility: [facility] Address: [address] [place] [address] Performed By: #### 5 7021-8 ####[facility] LABCLIA [id number] [place] [address] Nucleated RBC (Bld) [#/Vol] 10*3/uL Normal <0.01 [facility] Comment on above: Order Comment: Speci men Type: BLOOD SPECIMENOrdering Facility: [facility] Address: [address] [place] [address] Performed By: #### 5 7021-8 ####[facility] LABCLIA [id number] [place] [address] Nucleated RBC/100 WBC (Bld) [Ratio] 0.0 /[address] [facility] Comment on above: Order Comment: Speci men Type: BLOOD SPECIMENOrdering Facility: [facility] Address: [address] [place] [address] Performed By: #### 5 7021-8 ####[facility] LABCLIA [id number] [place] [address] Platelet mean volume (Bld) [ Entitic vol] 9.5 fL Normal 9.0-12.7 [facility] Comment on above: Order Comment: Speci men Type: BLOOD SPECIMENOrdering Facility: [facility] Address: [address] [place] [address] Performed By: #### 5 7021-8 ####[facility] LABCLIA [id number] [place] [address] Platelets (Bld) [#/Vol] 137 10*3/uL Low 150-400 [facility] Comment on above: Order Comment: Speci men Type: BLOOD SPECIMENOrdering Facility: [facility] Address: [address] [place] [address] Performed By: #### 5 7021-8 ####[facility] LABCLIA [id number] [place] [address] RBC (Bld) [#/Vol] 3.49 10*6/uL Low 3.90-5.20 [facility] Comment on above: Order Comment: Speci men Type: BLOOD SPECIMENOrdering Facility: [facility] Address: [address] [place] [id number] Performed By: #### 5 7021-8 ####[facility] LABCLIA [id number] [place] [address] WBC (Bld) [#/Vol] 4.64 10*3/uL Normal 3.70-11.00 [facility] Comment on above: Order Comment: Speci men Type: BLOOD SPECIMENOrdering Facility: [facility] Address: [place] [address] Performed By: #### 5 7021-8 ####[facility] LABCLIA [id number] [place] [address] CNOVSPon 06-05-2023 CNOVSP Visit (SP) Office ([facility]) ANDREI LEO ([id number]) 1950 F Date Time Provider Department 06/05/23 10:00 AM ANA HERNANDEZ During your visit today, we recorded the following information about you: Temperature Pulse Respiration Blood pressure 97 degrees 76/minute 16/minute 152/84 Weight Height 87.3 kg 1.588 m Ana Hernandez PA-C 06/05/2023 11:06 AM Signed NAME: Paul Leoalicia CAI NO.: [id number] DATE OF SERVICE: June 05, 2023 (Mary) (Elements copied from Dr. Ramsey's note dated April 20, 2023, have been reviewed and updated where appropriate, and all reflect current assessment and medical decision making during today's encounter, June 05, 2023) Additional Clinicians involved in Andrei Leo's care: Dr. Shay, Dr. Deluna CC: Chronic ITP ASSESSMENT/PLAN: 1. Thrombocytopenia (HCC) - ICD9: 287.5, ICD10: D69.6 (primary diagnosis) She has chronic ITP. She has repsonded to Rituxan in the past, most recently she was on Plaquenil (with a history of Lupus) and did not respond to this. Bone marrow biopsy September 13, 2019 showed unremarkable maturing trilineage hematopoiesis. Completed 4 weekly doses of Rituxan 11/2019 and platelet counts improved but still low. It is suspected she may also have hypersplenism and splenomegaly due to sleep apnea or liver congestion - cannot use CPAP. - Continues to respond to Tavalisse started 05/2021. 2. Pulmonary nodules - ICD9: 793.19, ICD10: R91.8 : 12/31/2020 CT Chest stable. No new findings. 3. Lupus (HCC) - ICD9: 710.0, ICD10: M32.9: She is asymptomatic from Lupus of the skin. 4. 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 5. HTN - continue Losartan plus HCTZ and continue managing HTN. Improved control even on Tavalisse. 6. Read lesion - may need biopsy in future. 7. Osteoporosis--dexa scan 05/17/2023--PCP managing. PLAN: Continue Tavalisse 100 mg twice daily. Follow up in 6 weeks with labs. Treatment to Date: . 05/14/2021 - Current: Tavalisse 4. 10/31/2019 - 11/21/2019: Weekly Rituxan x 4 3. 04/11/2019 Plaquenil which she stopped 2. January 2019 Prednisone 1. 2017 Rituxan X 4 HPI: Updated Visit, June 05, 2023: Andrei returns for follow up. Remains on Tavalisse 100 mg BID. She reports having a mammogram and dexa scan at [facility] per her PCP. She states that she was told she has osteoporosis and is following up with PCP for treatment of this. Updated Visit, April 20, 2023: Andrei is doing well and platelets 127k. Saw nephrology. US and CT reviewed - notable for renal cyst. Updated Visit, March 09, 2023: Andrei returns and generally doing well. Although, she tells me, that her family members continue to struggle with health issues. Labs remain stable for her. Updated Visit, January 26, 2023: went to [place] with bad [facility], brother's did of cancer, grand-nephew in [place] passed from ALL -- so she is stressed. Platelets stable at 122. LFT slightly elevated. Updated Visit, December 15, 2022: Doing well but mole is enlarging and bothering her on her left scalp. Platelets 113. Updated Visit, October 27, 2022: Doing well. Labs are great - platelets 119 Updated Visit, September 15, 2022: Andrei continues to do very well. Very busy with family life and issues. No new complaints. Updated Visit, August 04, 2022: Andrei Leo returns for follow-up. She remains on Tavalisse and is tolerating it well. She denies any bleeding or abnormal bruising. Since her last visit she had a colonoscopy and had polyps removed. She states that she was notified of the biopsy results which were negative. She is scheduled for a hearing test on 08/10/2022 and will then see ENT for follow-up on 08/30/2022. 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 Overall, she is doing well today with no new complaints. Updated Visit, June 23, 2022: Andrei is doing well on Tavalisse 100 mg BID. Plts 118. Right anterior read has a erythematous wide streak that throbs at night and is tender to touch. But it has been there for 6 months - 12/09/2021. I don't think this is an infection. She has edema in both legs. Will recommend trying Ice for 15 minutes at a time to see if she has some reduction in inflammation. It is possible that this is a manifestation of lupus. Will monitor. Consider a biopsy of skin if not resolved. Updated Visit, May 12, 2022: Andrei Leo returns for follow-up. She remains on Tavalisse 100 mg twice daily and is tolerating it well. There has been no significant medical changes since her last visit. She states that she is feeling okay. She states that she feels a sinus infection coming on. She noticed her right high becoming puffy which is a sign. She denies fevers and chills. No bleeding or abnormal bruising. She has a follow-up (more content not included)... Normal [facility] Comprehensive metabolic 2000 panelon 06-05-2023 Albumin [Mass/Vol] 3.9 g/dL Normal 3.9-4.9 [facility] Comment on above: Order Comment: Speci men Type: BLOOD SPECIMENOrdering Facility: [facility] Address: [address] [place] [address] Performed By: #### 2 4323-8 ####[facility] LABCLIA [id number] [place] [address] ALP [Catalytic activity/Vol] 64 U/L Normal 34-123 [facility] Comment on above: Order Comment: Speci men Type: BLOOD SPECIMENOrdering Facility: [facility] Address: [address] [place] [address] Performed By: #### 2 4323-8 ####[facility] LABCLIA [id number] [place] [address] ALT [Catalytic activity/Vol] 20 U/L Normal 7-38 [facility] Comment on above: Order Comment: Speci men Type: BLOOD SPECIMENOrdering Facility: [facility] Address: [address] [place] [address] Performed By: #### 2 4323-8 ####[facility] LABCLIA [id number] [place] [address] Anion gap [Moles/Vol] 9 mmol/L Normal 9-18 [facility] Comment on above: Order Comment: Speci men Type: BLOOD SPECIMENOrdering Facility: [facility] Address: [address] [place] [address] Performed By: #### 2 4323-8 ####[facility] LABCLIA [id number] [place] [address] AST [Catalytic activity/Vol] 25 U/L Normal 13-35 [facility] Comment on above: Order Comment: Speci men Type: BLOOD SPECIMENOrdering Facility: [facility] Address: [address] [place] [address] Performed By: #### 2 4323-8 ####[facility] LABCLIA [id number] [place] [address] Bilirubin [Mass/Vol] 0.5 mg/dL Normal 0.2-1.3 [facility] Comment on above: Order Comment: Speci men Type: BLOOD SPECIMENOrdering Facility: [facility] Address: [address] [place] [address] Performed By: #### 2 4323-8 ####[facility] LABCLIA [id number] [place] [address] Calcium [Mass/Vol] 9.8 mg/dL Normal 8.5-10.2 [facility] Comment on above: Order Comment: Speci men Type: BLOOD SPECIMENOrdering Facility: [facility] Address: [address] [place] [address] Performed By: #### 2 4323-8 ####[facility] LABCLIA [id number] [place] [address] Chloride [Moles/Vol] 107 mmol/L High 97-105 [facility] Comment on above: Order Comment: Speci men Type: BLOOD SPECIMENOrdering Facility: [facility] Address: [address] [place] [address] Performed By: #### 2 4323-8 ####[facility] LABCLIA [id number] [place] [address] CO2 [Moles/Vol] 22 mmol/L Normal 22-30 [facility] Comment on above: Order Comment: Speci men Type: BLOOD SPECIMENOrdering Facility: [facility] Address: [address] [place] [address] Performed By: #### 2 4323-8 ####[facility] LABCLIA [id number] [place] [address] Creatinine [Mass/Vol] 1.14 mg/dL High 0.58-0.96 [facility] Comment on above: Order Comment: Fabricio tapia Type: BLOOD SPECIMENOrdering Facility: [facility] Address: [place] [id number] Performed By: #### 2 4323-8 ####[facility] LABCLIA [id number] [place] [address] Creatinine and Glomerular filtration rate.predicted panel (S/P/Bld) 51 mL/min/1.73m??? Low >=60 [facility] Comment on above: Order Comment: Fabricio tapia Type: BLOOD SPECIMENOrdering Facility: [facility] Address: [place] [address] Result Comment: Miryam mated Glomerular Filtration Rate (eGFR) is calculated using the 2020 CKD-EPI creatinine equation. This equation utilizes serum creatinine, sex, and age as parameters. The creatinine assay has traceable calibration to isotope dilution-mass spectrometry. Refer to KDIGO guidelines for clinical interpretation. In patients with unstable renal function, e.g. those with acute kidney injury, the eGFR may not accurately reflect actual GFR. Performed By: #### 2 4323-8 ####[facility] LABCLIA [id number] [place] [address] Glucose [Mass/Vol] 113 mg/dL High 74-99 [facility] Comment on above: Order Comment: Fabricio tapia Type: BLOOD SPECIMENOrdering Facility: [facility] Address: [place] [id number] Result Comment: The [place] Diabetes Association (ADA) provides guidance for cutoff values for fasting glucose and random glucose. The ADA defines fasting as no caloric intake for at least 8 hours. Fasting plasma glucose results between 100 to 125 mg/dL indicate increased risk for diabetes (prediabetes). Fasting plasma glucose results greater than or equal to 126 mg/dL meet the criteria for diagnosis of diabetes. In the absence of unequivocal hyperglycemia, results should be confirmed by repeat testing. In a patient with classic symptoms of hyperglycemia or hyperglycemic crisis, random plasma glucose results greater than or equal to 200 mg/dL meet the criteria for diagnosis of diabetes. Reference: Standards of Medical Care in Diabetes 2016, [place] Diabetes Association. Diabetes Care. 2016.39(Suppl 1). Performed By: #### 2 4323-8 ####[facility] LABCLIA [id number] [place] [address] Potassium [Moles/Vol] 4.5 mmol/L Normal 3.7-5.1 [facility] Comment on above: Order Comment: Speci men Type: BLOOD SPECIMENOrdering Facility: [facility] Address: [address] [place] [address] Performed By: #### 2 4323-8 ####[facility] LABCLIA [id number] [place] [address] Protein [Mass/Vol] 7.5 g/dL Normal 6.3-8.0 [facility] Comment on above: Order Comment: Speci men Type: BLOOD SPECIMENOrdering Facility: [facility] Address: [address] [place] [address] Performed By: #### 2 4323-8 ####[facility] LABCLIA [id number] [place] [address] Sodium [Moles/Vol] 138 mmol/L Normal 136-144 [facility] Comment on above: Order Comment: Speci men Type: BLOOD SPECIMENOrdering Facility: [facility] Address: [address] [place] [address] Performed By: #### 2 4323-8 ####[facility] LABCLIA [id number] [place] [address] Urea nitrogen [Mass/Vol] 39 mg/dL High 7-21 [facility] Comment on above: Order Comment: Speci men Type: BLOOD SPECIMENOrdering Facility: [facility] Address: [address] [place] [address] Performed By: #### 2 4323-8 ####[facility] LABCLIA [id number] [place] [address] [facility] Ferritin [Mass/Vol] 104.0 ng/mL Normal 14.7-205.1 [facility] Comment on above: Order Comment: Speci men Type: BLOOD SPECIMEN Ordering Facility: [facility] Address: [address] [place] [address] Performed By: #### 2 276-4, 44098-8, 9, 8 #### [facility] CLIA [id number] [address] [place] [address] [place] Folate [facility]Pl[facility] 06-[facility]20 Folate [Mass/Vol] 6.3 ng/mL Normal >4.7 [facility] Comment on above: Order Comment: Speci men Type: BLOOD SPECIMEN Ordering Facility: [facility] Address: [address] [place] [address] Performed By: #### 2 276-4, 87244-7, 9, 2284-02 #### [facility] CLIA [id number] [address] [place] [address] [place] Iron and Iron binding capaci [facility] 06-05-2023 Iron [Mass/Vol] 63 ug/dL Normal 41-186 [facility] Comment on above: Order Comment: Speci men Type: BLOOD SPECIMEN Ordering Facility: [facility] Address: [address] [place] [address] Performed By: #### 2 276-4, 66125-9, 2132-03, 2284-02 #### [facility] CLIA [id number] [address] [place] [address] [place] Iron binding capacity [Mass/Vol] 344 ug/dL Normal 232 -386 [facility] Comment on above: Order Comment: Speci men Type: BLOOD SPECIMEN Ordering Facility: [facility] Address: [address] [place] [address] Performed By: #### 2 276-4, 07338-4, 9, 8 #### [facility] CLIA [id number] [address] [place] [address] [place] Iron/TIBC [Molar ratio] 18.3 % Normal 15.0-57.0 [facility] on above: Order Comment: Speci men Type: BLOOD SPECIMEN Ordering Facility: [facility] Address: [address] [place] [address] Performed By: #### 2 276-4, 69570-4, 9, 2284-02 #### [facility] CLIA [id number] [address] [place] [address] [place] Vit B12 [facility] 11-27-2 023 Cobalamin (Vitamin B12) [Mass/Vol] 443 pg/mL Normal 232-1245 [facility] Comment on above: Order Comment: Speci men Type: BLOOD SPECIMEN Ordering Facility: [facility] Address: [address] [place] [address] Performed By: #### 2 276-4, 34816-2, 2132-03, 2284-02 #### [facility] CLIA [id number] [address] [place] [address] [place] CBC W Auto Differential pane l (Bld)on 04-20-2023 Basophils (Bld) [#/Vol] 10*3/uL Normal <0.11 [facility] Comment on above: Order Comment: Speci men Type: BLOOD SPECIMEN Ordering Facility: [facility] Address: [address] [place] [address] Performed By: #### 5 7021-8 #### [facility]ALJOSE ROBERTO [facility] CLIA [id number] [address] [place] [address] 24910 Basophils/100 WBC (Bld) 0.2 % Normal [facility] Comment on above: Order Comment: Speci men Type: BLOOD SPECIMEN Ordering Facility: [facility] Address: [address] [place] [address] Performed By: #### 5 7021-8 #### [facility] CLIA [id number] [address] [place] [address] 23946 Differential cell count method Nom (Bld) Auto Normal [facility] Comment on above: Order Comment: Speci men Type: BLOOD SPECIMEN Ordering Facility: [facility] Address: [address] [place] [address] Performed By: #### 5 7021-8 #### [facility] CLIA [id number] [address] [place] [address]286 Eosinophils (Bld) [#/Vol] 0.04 10*3/uL Normal <0.46 [facility] Comment on above: Order Comment: Speci men Type: BLOOD SPECIMEN Ordering Facility: [facility] Address: [address] [place] [address] Performed By: #### 5 7021-8 #### [facility] CLIA [id number] [address] [place] [address] 19154 Eosinophils/100 WBC (Bld) 0.8 % Normal [facility] Comment on above: Order Comment: Speci men Type: BLOOD SPECIMEN Ordering Facility: [facility] Address: [address] [place] [address] Performed By: #### 5 7021-8 #### [facility] CLIA [id number] [address] [place] [address] 43353 Erythrocyte distribution wid th (RBC) [Ratio] 14.7 % Normal 11.5-15.0 [facility] Comment on above: Order Comment: Speci men Type: BLOOD SPECIMEN Ordering Facility: [facility] Address: [address] [place] [address] Performed By: #### 5 7021-8 #### [facility] CLIA [id number] [address] [place] [address] 70569 Hematocrit (Bld) [Volume fraction] 34.1 % Low 3 6.0-46.0 [facility] Comment on above: Order Comment: Speci men Type: BLOOD SPECIMEN Ordering Facility: [facility] Address: [address] [place] [address] Performed By: #### 5 7021-8 #### [facility] CLIA [id number] [address] [place] [address] 49660 Hemoglobin (Bld) [Mass/Vol] 10.9 g/dL Low 11.5-15. 5 [facility] Comment on above: Order Comment: Speci men Type: BLOOD SPECIMEN Ordering Facility: [facility] Address: [address] [place] [address] Performed By: #### 5 7021-8 #### [facility] CLIA [id number] [address] [place] [address] 26848 Immature granulocytes (Bld) [#/Vol] 10*3/uL Normal <0.10 [facility] Comment on above: Order Comment: Speci men Type: BLOOD SPECIMEN Ordering Facility: [facility] Address: [address] [place] [address] Performed By: #### 5 7021-8 #### [facility] CLIA [id number] [address] [place] [address] 42617 Immature granulocytes/100 WBC (Bld) 0.4 % Normal [facility] Comment on above: Order Comment: Speci men Type: BLOOD SPECIMEN Ordering Facility: [facility] Address: [address] [place] [address] Performed By: #### 5 7021-8 #### [facility] CLIA [id number] [address] [place] [address] 32665 Lymphocytes (Bld) [#/Vol] 2.49 10*3/uL Normal 1.00-4.[address] [facility] Comment on above: Order Comment: Speci men Type: BLOOD SPECIMEN Ordering Facility: [facility] Address: [address] [place] [address] Performed By: #### 5 7021-8 #### [facility] CLIA [id number] [address] [place] [address] 38400 Lymphocytes/100 WBC (Bld) 51.0 % Normal [facility] Comment on above: Order Comment: Speci men Type: BLOOD SPECIMEN Ordering Facility: [facility] Address: [address] [place] [address] Performed By: #### 5 7021-8 #### [facility] CLIA [id number] [address] [place] [address] 33314 MCH (RBC) [Entitic mass] 31.0 pg Normal 26.0-34.0 [facility] Comment on above: Order Comment: Speci men Type: BLOOD SPECIMEN Ordering Facility: [facility] Address: [address] [place] [address] Performed By: #### 5 7021-8 #### [facility] CLIA [id number] [address] [place] [address] 86227 MCHC (RBC) [Mass/Vol] 32.0 g/dL Normal 30.5-36.0 [facility] Comment on above: Order Comment: Speci men Type: BLOOD SPECIMEN Ordering Facility: [facility] Address: [address] [place] [address] Performed By: #### 5 7021-8 #### [facility] CLIA [id number] [address] [place] [address] 60897 MCV (RBC) [Entitic vol] 96.9 fL Normal 80.0-100.0 C [facility] Comment on above: Order Comment: Speci men Type: BLOOD SPECIMEN Ordering Facility: [facility] Address: [address] [place] [address] Performed By: #### 5 7021-8 #### [facility] CLIA [id number] [address] [place] [address] 86860 Monocytes (Bld) [#/Vol] 0.26 10*3/uL Normal <0.87 [facility] Comment on above: Order Comment: Speci men Type: BLOOD SPECIMEN Ordering Facility: [facility] Address: [address] [place] [address] Performed By: #### 5 7021-8 #### [facility] CLIA [id number] [address] [place] [address] 46771 Monocytes/100 WBC (Bld) 5.3 % Normal C [facility] Comment on above: Order Comment: Speci men Type: BLOOD SPECIMEN Ordering Facility: [facility] Address: [address] [place] [address] Performed By: #### 5 7021-8 #### [facility] CLIA [id number] [address] [place] [address] 25888 Neutrophils (Bld) [#/Vol] 2.06 10*3/uL Normal 1.45-7.[address] [facility] Comment on above: Order Comment: Speci men Type: BLOOD SPECIMEN Ordering Facility: [facility] Address: [address] [place] [address] Performed By: #### 5 7021-8 #### [facility] CLIA [id number] [address] [place] [address] 79660 Neutrophils/100 WBC (Bld) 42.3 % Normal [facility] Comment on above: Order Comment: Speci men Type: BLOOD SPECIMEN Ordering Facility: [facility] Address: [address] [place] [address] Performed By: #### 5 7021-8 #### [facility] CLIA [id number] [address] [place] [address] 15695 Nucleated RBC (Bld) [#/Vol] 10*3/uL Normal <0.01 [facility] Comment on above: Order Comment: Speci men Type: BLOOD SPECIMEN Ordering Facility: [facility] Address: [address] [place] [address] Performed By: #### 5 7021-8 #### [facility] CLIA [id number] [address] [place] [address] 72435 Nucleated RBC/100 WBC (Bld) [Ratio] 0.0 /[address] [facility] Comment on above: Order Comment: Speci men Type: BLOOD SPECIMEN Ordering Facility: [facility] Address: [address] [place] [address] Performed By: #### 5 7021-8 #### [facility] CLIA [id number] [address] [place] [address] 88754 Platelet mean volume (Bld) [ Entitic vol] 9.3 fL Normal 9.0-12.7 [facility] Comment on above: Order Comment: Speci men Type: BLOOD SPECIMEN Ordering Facility: [facility] Address: [address] [place] [address] Performed By: #### 5 7021-8 #### [facility] CLIA [id number] [address] [place] [address] 37829 Platelets (Bld) [#/Vol] 127 10*3/uL Low 150-400 [facility] Comment on above: Order Comment: Speci men Type: BLOOD SPECIMEN Ordering Facility: [facility] Address: [address] [place] [address] Performed By: #### 5 7021-8 #### [facility] CLIA [id number] [address] [place] [address] 68297 RBC (Bld) [#/Vol] 3.52 10*6/uL Low 3.90-5.20 [facility] Comment on above: Order Comment: Speci men Type: BLOOD SPECIMEN Ordering Facility: [facility] Address: [address] [place] [address] Performed By: #### 5 7021-8 #### [facility] CLIA [id number] [address] [place] [address] 17784 WBC (Bld) [#/Vol] 4.88 10*3/uL Normal 3.70-11.00 [facility] Comment on above: Order Comment: Speci men Type: BLOOD SPECIMEN Ordering Facility: [facility] Address: [address] [place] [address] Performed By: #### 5 7021-8 #### [facility] CLIA [id number] [address] [place] [address] 81101 CNOVSPon 04-20-2023 CNOVSP Visit (SP) Office ([facility]) ANDREI LEO ([id number]) 1950 F Date Time Provider Department 04/20/23 10:15 AM RINKU RAMSEY During your visit today, we recorded the following information about you: Temperature Pulse Respiration Blood pressure 97.8 degrees 72/minute 18/minute 168/87 Weight Height 89 kg 1.588 m Rinku Ramsey MD 04/23/2023 4:09 PM Signed NAME: Andrei Leo CLINIC NO.: [id number] DATE OF SERVICE: April 20, 2023 (Roxy) Some elements in this clinic note that are critical to medical decision making have been carefully reviewed and included from a prior clinic note dated: March 09, 2023 (Roxy) Additional Clinicians involved in Andrei Leo's care: Dr. Shay, Dr. Deluna CC: Chronic ITP ASSESSMENT/PLAN: 1. Thrombocytopenia (HCC) - ICD9: 287.5, ICD10: D69.6 (primary diagnosis) She has chronic ITP. She has repsonded to Rituxan in the past, most recently she was on Plaquenil (with a history of Lupus) and did not respond to this. Bone marrow biopsy September 13, 2019 showed unremarkable maturing trilineage hematopoiesis. Completed 4 weekly doses of Rituxan 11/2019 and platelet counts improved but still low. 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 - Continues to respond to Tavalisse started 05/2021. 2. Pulmonary nodules - ICD9: 793.19, ICD10: R91.8 : 12/31/2020 CT Chest stable. No new findings. 3. Lupus (HCC) - ICD9: 710.0, ICD10: M32.9: She is asymptomatic from Lupus of the skin. 4. 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 5. HTN - continue Losartan plus HCTZ and continue managing HTN. Improved control even on Tavalisse. 6. Read lesion - may need biopsy in future. PLAN: Continue Tavalisse 100 mg twice daily. Follow up in 6 weeks with labs. Treatment to Date: 5. 05/14/2021 - Current: Tavalisse 4. 10/31/2019 - 11/21/2019: Weekly Rituxan x 4 3. 04/11/2019 Plaquenil which she stopped 2. January 2019 Prednisone 1. 2017 Rituxan X 4 HPI: Updated Visit, April 20, 2023: Andrei is doing well and platelets 127k. Saw nephrology. US and CT reviewed - notable for renal cyst. Updated Visit, March 09, 2023: Andrei returns and generally doing well. Although, she tells me, that her family members continue to struggle with health issues. Labs remain stable for her. Updated Visit, January 26, 2023: went to [place] with bad [place], brother's did of cancer, grand-nephew in [place] passed from ALL -- so she is stressed. Platelets stable at 122. LFT slightly elevated. Updated Visit, December 15, 2022: Doing well but mole is enlarging and bothering her on her left scalp. Platelets 113. Updated Visit, October 27, 2022: Doing well. Labs are great - platelets 119 Updated Visit, September 15, 2022: Andrei continues to do very well. Very busy with family life and issues. No new complaints. Updated Visit, August 04, 2022: Andrei Leo returns for follow-up. She remains on Tavalisse and is tolerating it well. She denies any bleeding or abnormal bruising. Since her last visit she had a colonoscopy and had polyps removed. She states that she was notified of the biopsy results which were negative. She is scheduled for a hearing test on 08/10/2022 and will then see ENT for follow-up on 08/30/2022. 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 Overall, she is doing well today with no new complaints. Updated Visit, June 23, 2022: Andrei is doing well on Tavalisse 100 mg BID. Plts 118. Right anterior read has a erythematous wide streak that throbs at night and is tender to touch. But it has been there for 6 months - 12/09/2021. I don't think this is an infection. She has edema in both legs. Will recommend trying Ice for 15 minutes at a time to see if she has some reduction in inflammation. It is possible that this is a manifestation of lupus. Will monitor. Consider a biopsy of skin if not resolved. Updated Visit, May 12, 2022: Andrei Leo returns for follow-up. She remains on Tavalisse 100 mg twice daily and is tolerating it well. There has been no significant medical changes since her last visit. She states that she is feeling okay. She states that she feels a sinus infection coming on. She noticed her right high becoming puffy which is a sign. She denies fevers and chills. No bleeding or abnormal bruising. She has a follow-up scheduled with nephrology in either June or July. She offers no new complaints today. No new issues, problems or concerns. Updated Visit, March 31, 2022: Andrei is 71 yo and returns in follow up for ITP currently controlled with fostamatinib. Seems to bruise more easily with blood draws. Labs are stable. Plts 119k, hgb 11.6 Tolerating Tavalisse withou (more content not included)... Normal [facility] Comprehensive metabolic 2000 panelon 04-20-2023 Albumin [Mass/Vol] 3.9 g/dL Normal 3.9-4.9 [facility] Comment on above: Order Comment: Fabricio tapia Type: BLOOD SPECIMEN Ordering Facility: [facility] Address: [address] [place] [address] Performed By: #### 2 276-4, 04884-8, 2132-03, 2284-02 #### [facility] CLIA [id number] [address] [place] [address] [place] ALP [Catalytic activity/Vol] 67 U/L Normal 34-123 [facility] Comment on above: Order Comment: Fabricio tapia Type: BLOOD SPECIMEN Ordering Facility: [facility] Address: [address] [place] [address] Performed By: #### 2 276-4, 69486-1, 2132-03, 8 #### [facility] CLIA [id number] [address] [place] [address] [place] ALT [Catalytic activity/Vol] 23 U/L Normal 7-38 [facility] Comment on above: Order Comment: Speci men Type: BLOOD SPECIMEN Ordering Facility: [facility] Address: [address] [place] [address] Performed By: #### 2 276-4, 27427-9, 9, 2283-8 #### [facility] CLIA [id number] [address] [place] [address] [place] Anion gap [Moles/Vol] 11 mmol/L Normal 9-18 [facility] Comment on above: Order Comment: Speci men Type: BLOOD SPECIMEN Ordering Facility: [facility] Address: [address] [place] [address] Performed By: #### 2 276-4, 13250-8, 9, 8 #### [facility] CLIA [id number] [address] [place] [address] [place] AST [Catalytic activity/Vol] 38 U/L High 13-35 [facility] Comment on above: Order Comment: Speci men Type: BLOOD SPECIMEN Ordering Facility: [facility] Address: [address] [place] [address] Performed By: #### 2 276-4, 47806-3, 9, 8 #### [facility] CLIA [id number] [address] [place] [address] [place] Bilirubin [Mass/Vol] 0.6 mg/dL Normal 0.2-1.3 [facility] Comment on above: Order Comment: Speci men Type: BLOOD SPECIMEN Ordering Facility: [facility] Address: [address] [place] [address] Performed By: #### 2 276-4, 91624-3, 9, 8 #### [facility] CLIA [id number] [address] [place] [address] [place] Calcium [Mass/Vol] 10.2 mg/dL Normal 8.5-10.2 [facility] Comment on above: Order Comment: Speci men Type: BLOOD SPECIMEN Ordering Facility: [facility] Address: [address] [place] [address] Performed By: #### 2 276-4, 22610-8, 9, 2284-02 #### [facility] CLIA [id number] [address] [place] [address] [place] Chloride [Moles/Vol] 102 mmol/L Normal 97-105 [facility] Comment on above: Order Comment: Speci men Type: BLOOD SPECIMEN Ordering Facility: [facility] Address: [address] [place] [address] Performed By: #### 2 276-4, 44934-2, 9, 2284-02 #### [facility] CLIA [id number] [address] [place] [address] [place] CO2 [Moles/Vol] 27 mmol/L Normal 22-30 [facility] Comment on above: Order Comment: Speci men Type: BLOOD SPECIMEN Ordering Facility: [facility] Address: [address] [place] [address] Performed By: #### 2 276-4, 98638-1, 9, 2284-02 #### [facility] CLIA [id number] [facility] [place] [address] [place] Creatinine [Mass/Vol] 1.05 mg/dL High 0.58-0.96 [facility] Comment on above: Order Comment: Speci men Type: BLOOD SPECIMEN Ordering Facility: [facility] Address: [address] [place] [address] Performed By: #### 2 276-4, 91411-0, 9, 2284-02 #### [facility] CLIA [id number] [address] [place] [address] [place] Creatinine and Glomerular filtration rate.predicted panel (S/P/Bld) 57 mL/min/1.73m??? Low >=60 [facility] Comment on above: Order Comment: Fabricio tapia Type: BLOOD SPECIMEN Ordering Facility: [facility] Address: [address] [place] [address] Result Comment: Miryam mated Glomerular Filtration Rate (eGFR) is calculated using the 2020 CKD-EPI creatinine equation. This equation utilizes serum creatinine, sex, and age as parameters. The creatinine assay has traceable calibration to isotope dilution-mass spectrometry. Refer to KDIGO guidelines for clinical interpretation. In patients with unstable renal function, e.g. those with acute kidney injury, the eGFR may not accurately reflect actual GFR. Performed By: #### 2 276-4, 53497-4, 2132-03, 2284-02 #### [facility] CLIA [id number] [address] [place] [address] [place] Glucose [Mass/Vol] 134 mg/dL High 74-99 [facility] Comment on above: Order Comment: Fabricio tapia Type: BLOOD SPECIMEN Ordering Facility: [facility] Address: [address] [place] [address] Result Comment: The [place] Diabetes Association (ADA) provides guidance for cutoff values for fasting glucose and random glucose. The ADA defines fasting as no caloric intake for at least 8 hours. Fasting plasma glucose results between 100 to 125 mg/dL indicate increased risk for diabetes (prediabetes). Fasting plasma glucose results greater than or equal to 126 mg/dL meet the criteria for diagnosis of diabetes. In the absence of unequivocal hyperglycemia, results should be confirmed by repeat testing. In a patient with classic symptoms of hyperglycemia or hyperglycemic crisis, random plasma glucose results greater than or equal to 200 mg/dL meet the criteria for diagnosis of diabetes. Reference: Standards of Medical Care in Diabetes 2016, [place] [employer] Association. Diabetes Care. 2016.39(Suppl 1). Performed By: #### 2 276-4, 40755-5, 2132-03, 2284-02 #### [facility] CLIA [id number] [address] [address] [place] Potassium [Moles/Vol] 4.9 mmol/L Normal 3.7-5.1 [facility] Comment on above: Order Comment: Speci men Type: BLOOD SPECIMEN Ordering Facility: [facility] Address: [place] [address] Performed By: #### 2 276-4, 40217-3, 9, 2284-02 #### [facility] CLIA [id number] [address] [place] [address] [place] Protein [Mass/Vol] 7.4 g/dL Normal 6.3-8.0 [facility] Comment on above: Order Comment: Speci men Type: BLOOD SPECIMEN Ordering Facility: [facility] Address: [place] [address] Performed By: #### 2 276-4, 45134-6, 9, 2284-02 #### [facility] CLIA [id number] [address] [place] [address] [place] Sodium [Moles/Vol] 140 mmol/L Normal 136-144 [facility] Comment on above: Order Comment: Speci men Type: BLOOD SPECIMEN Ordering Facility: [facility] Address: [place] [address] Performed By: #### 2 276-4, 86723-0, 9, 2284-02 #### [facility] CLIA [id number] [address] [place] [address] [place] Urea nitrogen [Mass/Vol] 26 mg/dL High 7-21 [facility] Comment on above: Order Comment: Speci men Type: BLOOD SPECIMEN Ordering Facility: [facility] Address: [address] [place] [address] Performed By: #### 2 276-4, 29123-1, 9, 2284-02 #### [facility] CLIA [id number] [facility] [place] [address] [place] LDH SerPl-cCncon 04-20-2023 LDH [Catalytic activity/Vol] 328 U/L High 135-214 [facility] Comment on above: Order Comment: Speci men Type: BLOOD SPECIMEN Ordering Facility: [facility] Address: [address] [place] [address] Performed By: #### 2 276-4, 56929-2, 2132-9, 2284-8 #### [facility] CLIA [id number] [address] [facility] [id number] [facility] CNPNon 04-19-2023 CNPN Telephone (HEMASA) ANDREI LEO ([id number]) 1950 F Date Time Provider Department 04/19/23 RINKU RAMSEY During your visit today, we recorded the following information about you: Joanne Alvarez 04/19/2023 4:03 PM Signed Patient has an appt on 04/20. Would you like labs? Allergies As of Date: 04/19/2023 Noted Allergy Reaction TETNUS (TETANUS VACCINES AND TOXO*03/03/2016 16 - Unknown VANCOMYCIN 03/03/2016 16 - Unknown Comments: Burning sensation Date Reviewed: 03/09/2023 Reviewed by: Joanne Alvarez - Fully Assessed Reason for Visit: Lab Orders [1688] Primary Visit Diagnosis:Chronic ITP (idiopathic thrombocytopenia) ([facility]) [D69.3] Order(s):LD LACTATE DEHYDRO [SQLD6] Order #: [id number] FUTURE CBC + DIFF [SQCBCDIF] Order #: [id number] FUTURE COMP METABOLIC PANEL [SQCMP] Order #: [id number] FUTURE Prescriptions as of 04/19/2023 - benzonatate (TESSALON PERLE) 100 mg capsule TAKE 1 CAPSULE BY MOUTH EVERY 6 HOURS NEEDED FOR COUGH. - cholecalciferol, vitamin D3, (VITAMIN D3 ORAL) Take by mouth. - fostamatinib (TAVALISSE) 100 mg tablet Take 1 tablet by mouth twice daily. - hydroCHLOROthiazide 25 mg tablet TAKE 1 TABLET BY MOUTH EVERY DAY - losartan (COZAAR) 25 mg tablet Take 2 tablets by mouth daily at bedtime. - pilocarpine (SALAGEN) 5 mg tablet TAKE 1 TABLET BY MOUTH THREE TIMES A DAY - spironolactone (ALDACTONE) 25 mg tablet Take 25 mg by mouth once daily. Problem List As Of Date 04/19/2023 Noted Resolved Thrombocytopenia (HCC) [D69.6] 03/03/2016 Abnormal weight loss [R63.4] 03/03/2016 Lupus (HCC) [M32.9] 03/03/2016 Acute ITP (HCC) [D69.3] 05/26/2016 Family history of breast cancer [Z80.3] 04/13/2017 Chronic ITP (idiopathic thrombocytopenia) (HCC)*09/08/2017 Nocturnal leg cramps [G47.62] 10/05/2017 Obstructive sleep apnea syndrome [G47.33] 05/13/2021 Essential hypertension [I10] 05/13/2021 Encounter Status:Closed by RINKU RAMSEY on 04/19/[address] [facility] CBC W Auto Differential pane l (Bld)on 03-09-2023 Basophils (Bld) [#/Vol] 10*3/uL [facility] <0.11 [facility]: Order Comment: Speci men Type: BLOOD SPECIMEN Ordering Facility: [facility] Address: [address] [place] [address] Performed By: #### 2 276-4, 32223-3, 2132-03, 2284-02 #### [facility] CLIA [id number] [facility] [facility] [address] [address] [place] Basophils/100 WBC (Bld) 0.2 % [facility] Comment on above: Order Comment: Speci men Type: BLOOD SPECIMEN Ordering Facility: [facility] Address: [address] [place] [address] Performed By: #### 2 276-4, 52892-6, 2132-03, 2284-02 #### [facility] CLIA [id number] [address] [place] [address] [place] Differential cell count method Nom (Bld) Auto Normal [facility] Comment on above: Order Comment: Speci men Type: BLOOD SPECIMEN Ordering Facility: [facility] Address: [address] [place] [address] Performed By: #### 2 276-4, 59358-0, 2132-03, 2284-02 #### [facility] CLIA [id number] [address] [place] [address] [place] Eosinophils (Bld) [#/Vol] 0.04 10*3/uL Normal <0.46 [facility] Comment on above: Order Comment: Speci men Type: BLOOD SPECIMEN Ordering Facility: [facility] Address: [address] [place] [address] Performed By: #### 2 276-4, 82430-3, 2132-03, 2284-02 #### [facility] CLIA [id number] [address] [place] [address] [place] Eosinophils/100 WBC (Bld) 0.8 % Normal [facility] Comment on above: Order Comment: Speci men Type: BLOOD SPECIMEN Ordering Facility: [facility] Address: [address] [place] [address] Performed By: #### 2 276-4, 79701-7, 2132-03, 2284-02 #### [facility] CLIA [id number] [address] [place], [place] [address] [place] Erythrocyte distribution wid th (RBC) [Ratio] 14.3 % Normal 11.5-15.0 [facility] Comment on above: Order Comment: Speci men Type: BLOOD SPECIMEN Ordering Facility: [facility] Address: [address] [place] [address] Performed By: #### 2 276-4, 17304-2, 2132-03, 2284-02 #### [facility] CLIA [id number] [address] [place] [address] [place] Hematocrit (Bld) [Volume fraction] 34.9 % Low 3 6.0-46.0 [facility] Comment on above: Order Comment: Speci men Type: BLOOD SPECIMEN Ordering Facility: [facility] Address: [address] [place] [address] Performed By: #### 2 276-4, 47430-3, 2132-03, 2284-02 #### [facility] CLIA [id number] [address] [place] [address] [place] Hemoglobin (Bld) [Mass/Vol] 11.1 g/dL Low 11.5-15. 5 [facility] Comment on above: Order Comment: Speci men Type: BLOOD SPECIMEN Ordering Facility: [facility] Address: [address] [place] [address] Performed By: #### 2 276-4, 17796-4, 2132-03, 2284-02 #### [facility] CLIA [id number] [address] [place] [address] [place] Immature granulocytes (Bld) [#/Vol] 10*3/uL Normal <0.10 [facility] Comment on above: Order Comment: Speci men Type: BLOOD SPECIMEN Ordering Facility: [facility] Address: [address] [place] [address] Performed By: #### 2 276-4, 79212-2, 2132-03, 2284-02 #### [facility] CLIA [id number] [address] [place] [address] [place] Immature granulocytes/100 WBC (Bld) 0.2 % Normal [facility] Comment on above: Order Comment: Speci men Type: BLOOD SPECIMEN Ordering Facility: [facility] Address: [address] [place] [address] Performed By: #### 2 276-4, 06823-7, 2132-03, 2284-02 #### [facility] CLIA [id number] [address] [place], [place] [address] [place] Lymphocytes (Bld) [#/Vol] 2.36 10*3/uL Normal 1.00-4.[address] [facility] Comment on above: Order Comment: Speci men Type: BLOOD SPECIMEN Ordering Facility: [facility] Address: [address] [place] [address] Performed By: #### 2 276-4, 11053-2, 2132-03, 2284-02 #### [facility] CLIA [id number] [address] [place] [address] [place] Lymphocytes/100 WBC (Bld) 49.2 % Normal [facility] Comment on above: Order Comment: Speci men Type: BLOOD SPECIMEN Ordering Facility: [facility] Address: [address] [place] [address] Performed By: #### 2 276-4, 59475-5, 2132-03, 2284-02 #### [facility] CLIA [id number] [address] [place] [address] [place] MCH (RBC) [Entitic mass] 30.6 pg Normal 26.0-34.0 [facility] Comment on above: Order Comment: Speci men Type: BLOOD SPECIMEN Ordering Facility: [facility] Address: [address] [place] [address] Performed By: #### 2 276-4, 91596-4, 2132-03, 2284-02 #### [facility] CLIA [id number] [address] [place] [address] [place] MCHC (RBC) [Mass/Vol] 31.8 g/dL Normal 30.5-36.0 [facility] Comment on above: Order Comment: Speci men Type: BLOOD SPECIMEN Ordering Facility: [facility] Address: [address] [place] [address] Performed By: #### 2 276-4, 32282-8, 2132-03, 2284-02 #### [facility] CLIA [id number] [address] [place], [place] [address] [place] MCV (RBC) [Entitic vol] 96.1 fL Normal 80.0-100.0 C [facility] Comment on above: Order Comment: Speci men Type: BLOOD SPECIMEN Ordering Facility: [facility] Address: [address] [place] [address] Performed By: #### 2 276-4, 41189-8, 2132-03, 2284-02 #### [facility] CLIA [id number] [address] [place] [address] [place] Monocytes (Bld) [#/Vol] 0.22 10*3/uL Normal <0.87 [facility] Comment on above: Order Comment: Speci men Type: BLOOD SPECIMEN Ordering Facility: [facility] Address: [address] [place] [address] Performed By: #### 2 276-4, 10231-0, 2132-03, 2284-02 #### [facility] CLIA [id number] [address] [place] [address] [place] Monocytes/100 WBC (Bld) 4.6 % Normal C [facility] Comment on above: Order Comment: Speci men Type: BLOOD SPECIMEN Ordering Facility: [facility] Address: [address] [place] [address] Performed By: #### 2 276-4, 25367-3, 2132-03, 2284-02 #### [facility] CLIA [id number] [address] [place], [place] [address] [place] Neutrophils (Bld) [#/Vol] 2.16 10*3/uL Normal 1.45-7.[address] [facility] Comment on above: Order Comment: Speci men Type: BLOOD SPECIMEN Ordering Facility: [facility] Address: [address] [place] [address] Performed By: #### 2 276-4, 90596-1, 2132-03, 2284-02 #### [facility] CLIA [id number] [address] [place] [address] [place] Neutrophils/100 WBC (Bld) 45.0 % Normal [facility] Comment on above: Order Comment: Speci men Type: BLOOD SPECIMEN Ordering Facility: [facility] Address: [address] [place] [address] Performed By: #### 2 276-4, 61548-6, 2132-03, 2284-02 #### [facility] CLIA [id number] [address] [place] [address] [place] Nucleated RBC (Bld) [#/Vol] 10*3/uL Normal <0.01 [facility] Comment on above: Order Comment: Speci men Type: BLOOD SPECIMEN Ordering Facility: [facility] Address: [address] [place] [address] Performed By: #### 2 276-4, 04737-8, 2132-03, 2284-02 #### [facility] CLIA [id number] [address] [place], [place] [address] [place] Nucleated RBC/100 WBC (Bld) [Ratio] 0.0 /[address] [facility] Comment on above: Order Comment: Speci men Type: BLOOD SPECIMEN Ordering Facility: [facility] Address: [address] [place] [address] Performed By: #### 2 276-4, 12589-8, 2132-03, 2284-02 #### [facility] CLIA [id number] [address] [place] [address] [place] Platelet mean volume (Bld) [ Entitic vol] 9.8 fL Normal 9.0-12.7 [facility] Comment on above: Order Comment: Speci men Type: BLOOD SPECIMEN Ordering Facility: [facility] Address: [address] [place] [address] Performed By: #### 2 276-4, 04530-0, 2132-03, 2284-02 #### [facility] CLIA [id number] [address] [place] [address] [place] Platelets (Bld) [#/Vol] 110 10*3/uL Low 150-400 [facility] Comment on above: Order Comment: Speci men Type: BLOOD SPECIMEN Ordering Facility: [facility] Address: [address] [place] [address] Performed By: #### 2 276-4, 75243-6, 2132-03, 8 #### [facility] CLIA [id number] [address] [place] [address] [place] RBC (Bld) [#/Vol] 3.63 10*6/uL Low 3.90-5.20 [facility] Comment on above: Order Comment: Speci men Type: BLOOD SPECIMEN Ordering Facility: [facility] Address: [address] [place] [address] Performed By: #### 2 276-4, 72122-6, 9, 8 #### [facility] CLIA [id number] [address] [place] [address] [place] WBC (Bld) [#/Vol] 4.80 10*3/uL Normal 3.70-11.00 [facility] Comment on above: Order Comment: Speci men Type: BLOOD SPECIMEN Ordering Facility: [facility] Address: [address] [place] [address] Performed By: #### 2 276-4, 49218-0, 2132-03, 8 #### [facility] CLIA [id number] [address] [place] [address] [place] CNOVSPon 03-09-2023 CNOVSP Visit (SP) Office ([facility]) ANDREI LEO ([id number]) 1950 F Date Time Provider Department 03/09/23 2:30 PM RINKU RAMSEY During your visit today, we recorded the following information about you: Temperature Pulse Respiration Blood pressure 97.6 degrees 71/minute 16/minute 143/76 Weight Height 88.3 kg 1.588 m Rinku Ramsey MD 03/13/2023 2:11 PM Signed NAME: Andrei Leo CLINIC NO.: [id number] DATE OF SERVICE: March 09, 2023 (Roxy) Some elements in this clinic note that are critical to medical decision making have been carefully reviewed and included from a prior clinic note dated: January 26, 2023 (Roxy) Additional Clinicians involved in Andrei Leo's care: Dr. Shay, Dr. Deluna CC: Chronic ITP ASSESSMENT/PLAN: 1. Thrombocytopenia (HCC) - ICD9: 287.5, ICD10: D69.6 (primary diagnosis) She has chronic ITP. She has repsonded to Rituxan in the past, most recently she was on Plaquenil (with a history of Lupus) and did not respond to this. Bone marrow biopsy September 13, 2019 showed unremarkable maturing trilineage hematopoiesis. Completed 4 weekly doses of Rituxan 11/2019 and platelet counts improved but still low. 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 - Continues to respond to Tavalisse started 05/2021. 2. Pulmonary nodules - ICD9: 793.19, ICD10: R91.8 : 12/31/2020 CT Chest stable. No new findings. 3. Lupus (HCC) - ICD9: 710.0, ICD10: M32.9: She is asymptomatic from Lupus of the skin. 4. 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 5. HTN - continue Losartan plus HCTZ and continue managing HTN. Improved control even on Tavalisse. 6. Read lesion - may need biopsy in future. PLAN: Continue Tavalisse 100 mg twice daily. Follow up in 6 weeks with labs. Treatment to Date: . 05/14/2021 - Current: Tavalisse 4. 10/31/2019 - 11/21/2019: Weekly Rituxan x 4 3. 04/11/2019 Plaquenil which she stopped 2. January 2019 Prednisone 1. 2017 Rituxan X 4 HPI: Updated Visit, March 09, 2023: Andrei returns and generally doing well. Although, she tells me, that her family members continue to struggle with health issues. Labs remain stable for her. Updated Visit, January 26, 2023: went to [place] with bad GB, brother's did of cancer, grand-nephew in [place] passed from ALL -- so she is stressed. Platelets stable at 122. LFT slightly elevated. Updated Visit, December 15, 2022: Doing well but mole is enlarging and bothering her on her left scalp. Platelets 113. Updated Visit, October 27, 2022: Doing well. Labs are great - platelets 119 Updated Visit, September 15, 2022: Andrei continues to do very well. Very busy with family life and issues. No new complaints. Updated Visit, August 04, 2022: Andrei Leo returns for follow-up. She remains on Tavalisse and is tolerating it well. She denies any bleeding or abnormal bruising. Since her last visit she had a colonoscopy and had polyps removed. She states that she was notified of the biopsy results which were negative. She is scheduled for a hearing test on 08/10/2022 and will then see ENT for follow-up on 08/30/2022. 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 Overall, she is doing well today with no new complaints. Updated Visit, June 23, 2022: Andrei is doing well on Tavalisse 100 mg BID. Plts 118. Right anterior read has a erythematous wide streak that throbs at night and is tender to touch. But it has been there for 6 months - 12/09/2021. I don't think this is an infection. She has edema in both legs. Will recommend trying Ice for 15 minutes at a time to see if she has some reduction in inflammation. It is possible that this is a manifestation of lupus. Will monitor. Consider a biopsy of skin if not resolved. Updated Visit, May 12, 2022: Andrei Leo returns for follow-up. She remains on Tavalisse 100 mg twice daily and is tolerating it well. There has been no significant medical changes since her last visit. She states that she is feeling okay. She states that she feels a sinus infection coming on. She noticed her right high becoming puffy which is a sign. She denies fevers and chills. No bleeding or abnormal bruising. She has a follow-up scheduled with nephrology in either June or July. She offers no new complaints today. No new issues, problems or concerns. Updated Visit, March 31, 2022: Andrei is 71 yo and returns in follow up for ITP currently controlled with fostamatinib. Seems to bruise more easily with blood draws. Labs are stable. Plts 119k, hgb 11.6 Tolerating Tavalisse without difficulty however, LFT will need to be monitored as they are slightly increased. Got back from [place] and saw her sisters and had a nice t (more content not included)... Normal [facility] Comprehensive metabolic 2000 panelon 03-09-2023 Albumin [Mass/Vol] 4.0 g/dL Normal 3.9-4.9 [facility] Comment on above: Order Comment: Speci men Type: BLOOD SPECIMENOrdering Facility: [facility] Address: [address] [address] Performed By: #### 2 4323-8 ####[facility] LABCLIA [id number] [place] [address] ALP [Catalytic activity/Vol] 75 U/L Normal 34-123 [facility] Comment on above: Order Comment: Speci men Type: BLOOD SPECIMENOrdering Facility: [facility] Address: [address] [address] Performed By: #### 2 4323-8 ####[facility] LABCLIA [id number] [place] [address] ALT [Catalytic activity/Vol] 43 U/L High 7-38 [facility] Comment on above: Order Comment: Speci men Type: BLOOD SPECIMENOrdering Facility: [facility] Address: [address] [address] Performed By: #### 2 4323-8 ####[facility] LABCLIA [id number] [place] [address] Anion gap [Moles/Vol] 7 mmol/L Low 9-18 [facility] Comment on above: Order Comment: Speci men Type: BLOOD SPECIMENOrdering Facility: [facility] Address: [address] [address] Performed By: #### 2 4323-8 ####[facility] LABCLIA [id number] [place] [address] AST [Catalytic activity/Vol] 54 U/L High 13-35 [facility] Comment on above: Order Comment: Speci men Type: BLOOD SPECIMENOrdering Facility: [facility] Address: [address] [address] Performed By: #### 2 4323-8 ####[facility] LABCLIA [id number] [place] [address] Bilirubin [Mass/Vol] 0.6 mg/dL Normal 0.2-1.3 [facility] Comment on above: Order Comment: Speci men Type: BLOOD SPECIMENOrdering Facility: [facility] Address: [address] [address] Performed By: #### 2 4323-8 ####[facility] LABCLIA [id number] [place] [address] Calcium [Mass/Vol] 9.3 mg/dL Normal 8.5-10.2 [facility] Comment on above: Order Comment: Speci men Type: BLOOD SPECIMENOrdering Facility: [facility] Address: [address] [place] [address] Performed By: #### 2 4323-8 ####[facility] LABCLIA [id number] [place] [address] Chloride [Moles/Vol] 106 mmol/L High 97-105 [facility] Comment on above: Order Comment: Speci men Type: BLOOD SPECIMENOrdering Facility: [facility] Address: [address] [address] Performed By: #### 2 4323-8 ####[facility] LABCLIA [id number] [place] [address] CO2 [Moles/Vol] 25 mmol/L Normal 22-30 [facility] Comment on above: Order Comment: Speci men Type: BLOOD SPECIMENOrdering Facility: [facility] Address: [address] [address] Performed By: #### 2 4323-8 ####[facility] LABCLIA [id number] [place] [address] Creatinine [Mass/Vol] 1.19 mg/dL High 0.58-0.96 [facility] Comment on above: Order Comment: Speci men Type: BLOOD SPECIMENOrdering Facility: [facility] Address: [address] [address] Performed By: #### 2 4323-8 ####[facility] LABCLIA [id number] [place] [address] Creatinine and Glomerular filtration rate.predicted panel (S/P/Bld) 49 mL/min/1.73m??? Low >=60 [facility] Comment on above: Order Comment: Speci men Type: BLOOD SPECIMENOrdering Facility: [facility] Address: [address] [place] [address] Result Comment: Miryam mated Glomerular Filtration Rate (eGFR) is calculated using the 2020 CKD-EPI creatinine equation. This equation utilizes serum creatinine, sex, and age as parameters. The creatinine assay has traceable calibration to isotope dilution-mass spectrometry. Refer to KDIGO guidelines for clinical interpretation. In patients with unstable renal function, e.g. those with acute kidney injury, the eGFR may not accurately reflect actual GFR. Performed By: #### 2 4323-8 ####[facility] LABCLIA [id number] [place] [address] Glucose [Mass/Vol] 107 mg/dL High 74-99 [facility] Comment on above: Order Comment: Speci men Type: BLOOD SPECIMENOrdering Facility: [facility] Address: [address] [place] [address] Result Comment: The [place] Diabetes Association (ADA) provides guidance for cutoff values for fasting glucose and random glucose. The ADA defines fasting as no caloric intake for at least 8 hours. Fasting plasma glucose results between 100 to 125 mg/dL indicate increased risk for diabetes (prediabetes). Fasting plasma glucose results greater than or equal to 126 mg/dL meet the criteria for diagnosis of diabetes. In the absence of unequivocal hyperglycemia, results should be confirmed by repeat testing. In a patient with classic symptoms of hyperglycemia or hyperglycemic crisis, random plasma glucose results greater than or equal to 200 mg/dL meet the criteria for diagnosis of diabetes. Reference: Standards of Medical Care in Diabetes 2016, [place] [employer] Association. Diabetes Care. 2016.39(Suppl 1). Performed By: #### 2 4323-8 ####[facility] LABCLIA [id number] [place] [address] Potassium [Moles/Vol] 4.6 mmol/L Normal 3.7-5.1 [facility] Comment on above: Order Comment: Speci men Type: BLOOD SPECIMENOrdering Facility: [facility] Address: [address] [place] [address] Performed By: #### 2 4323-8 ####[facility] LABCLIA [id number] [place] [address] Protein [Mass/Vol] 7.5 g/dL Normal 6.3-8.0 [facility] Comment on above: Order Comment: Speci men Type: BLOOD SPECIMENOrdering Facility: [facility] Address: [address] [place] [address] Performed By: #### 2 4323-8 ####[facility] LABCLIA [id number] [address] [place] [id number] Sodium [Moles/Vol] 138 mmol/L Normal 136-144 [facility] Comment on above: Order Comment: Speci men Type: BLOOD SPECIMENOrdering Facility: [facility] Address: [address] [place] [address] Performed By: #### 2 4323-8 ####[facility] LABCLIA [id number] [address] [id number] Urea nitrogen [Mass/Vol] 25 mg/dL High 7-21 [facility] Comment on above: Order Comment: Speci men Type: BLOOD SPECIMENOrdering Facility: [facility] Address: [address] [place] [address] Performed By: #### 2 4323-8 ####[facility] LABCLIA [id number] [address] [place] [id number] CBC W Auto Differential pane l (Bld)on 01-26-2023 Basophils (Bld) [#/Vol] 10*3/uL Normal <0.11 [facility] Comment on above: Order Comment: Speci men Type: BLOOD SPECIMEN Ordering Facility: [facility] Address: [address] [place] [address] Performed By: #### 2 276-4, 87323-4, 2132-03, 2284-02 #### [facility] CLIA [id number] [address] [place] [address] [place] Basophils/100 WBC (Bld) 0.4 % Normal [facility] Comment on above: Order Comment: Speci men Type: BLOOD SPECIMEN Ordering Facility: [facility] Address: [address] [place] [address] Performed By: #### 2 276-4, 96819-8, 2132-03, 2284-02 #### [facility] CLIA [id number] [address] [place] [address] [place] Differential cell count method Nom (Bld) Auto Normal [facility] Comment on above: Order Comment: Speci men Type: BLOOD SPECIMEN Ordering Facility: [facility] Address: [address] [place] [address] Performed By: #### 2 276-4, 84339-7, 2132-03, 2284-02 #### [facility] CLIA [id number] [facility] [place] [address] [place] Eosinophils (Bld) [#/Vol] 0.03 10*3/uL Normal <0.46 [facility] Comment on above: Order Comment: Speci men Type: BLOOD SPECIMEN Ordering Facility: [facility] Address: [address] [place] [address] Performed By: #### 2 276-4, 22107-2, 2132-03, 2284-02 #### [facility] CLIA [id number] [address] [place] [address] [place] Eosinophils/100 WBC (Bld) 0.6 % Normal [facility] Comment on above: Order Comment: Speci men Type: BLOOD SPECIMEN Ordering Facility: [facility] Address: [address] [place] [address] Performed By: #### 2 276-4, 20372-1, 2132-03, 2284-02 #### [facility] CLIA [id number] [address] [place] [address] [place] Erythrocyte distribution wid th (RBC) [Ratio] 15.2 % High 11.5-15.0 [facility] Comment on above: Order Comment: Speci men Type: BLOOD SPECIMEN Ordering Facility: [facility] Address: [address] [place] [address] Performed By: #### 2 276-4, 27159-8, 2132-03, 2284-02 #### [facility] CLIA [id number] [address] [place] [address] [place] Hematocrit (Bld) [Volume fraction] 36.8 % Normal 3 6.0-46.0 [facility] Comment on above: Order Comment: Speci men Type: BLOOD SPECIMEN Ordering Facility: [facility] Address: [address] [place] [address] Performed By: #### 2 276-4, 49221-0, 2132-03, 2284-02 #### [facility] CLIA [id number] [address] [place] [address] [place] Hemoglobin (Bld) [Mass/Vol] 11.4 g/dL Low 11.5-15. 5 [facility] Comment on above: Order Comment: Speci men Type: BLOOD SPECIMEN Ordering Facility: [facility] Address: [place] [address] Performed By: #### 2 276-4, 93015-2, 2132-03, 2284-02 #### [facility] CLIA [id number] [address] [place] [address] [place] Immature granulocytes (Bld) [#/Vol] 10*3/uL Normal <0.10 [facility] Comment on above: Order Comment: Speci men Type: BLOOD SPECIMEN Ordering Facility: [facility] Address: [place] [address] Performed By: #### 2 276-4, 26413-7, 2132-03, 2284-02 #### [facility] CLIA [id number] [address] [place] [address] [place] Immature granulocytes/100 WBC (Bld) 0.2 % Normal [facility] Comment on above: Order Comment: Speci men Type: BLOOD SPECIMEN Ordering Facility: [facility] Address: [address] [place] [address] Performed By: #### 2 276-4, 93661-8, 2132-03, 2284-02 #### [facility] CLIA [id number] [address] [place] [address] [place] Lymphocytes (Bld) [#/Vol] 2.71 10*3/uL Normal 1.00-4.[address] [facility] Comment on above: Order Comment: Speci men Type: BLOOD SPECIMEN Ordering Facility: [facility] Address: [address] [place] [address] Performed By: #### 2 276-4, 04109-7, 2132-03, 2284-02 #### [facility] CLIA [id number] [address] [place] [address] [place] Lymphocytes/100 WBC (Bld) 50.5 % Normal [facility] Comment on above: Order Comment: Speci men Type: BLOOD SPECIMEN Ordering Facility: [facility] Address: [address] [place] [address] Performed By: #### 2 276-4, 94128-5, 2132-03, 2284-02 #### [facility] CLIA [id number] [address] [place] [address] [place] MCH (RBC) [Entitic mass] 30.2 pg Normal 26.0-34.0 [facility] Comment on above: Order Comment: Speci men Type: BLOOD SPECIMEN Ordering Facility: [facility] Address: [place] [address] Performed By: #### 2 276-4, 50725-6, 2132-03, 2284-02 #### [facility] CLIA [id number] [address] [place] [address] [place] MCHC (RBC) [Mass/Vol] 31.0 g/dL Normal 30.5-36.0 [facility] Comment on above: Order Comment: Speci men Type: BLOOD SPECIMEN Ordering Facility: [facility] Address: [address] [place] [address] Performed By: #### 2 276-4, 43169-7, 2132-03, 2284-02 #### [facility] CLIA [id number] [address] [place] [address] [place] MCV (RBC) [Entitic vol] 97.4 fL Normal 80.0-100.0 [facility] Comment on above: Order Comment: Speci men Type: BLOOD SPECIMEN Ordering Facility: [facility] Address: [place] [address] Performed By: #### 2 276-4, 04537-5, 2132-03, 2284-02 #### [facility] CLIA [id number] [address] [place] [address] [place] Monocytes (Bld) [#/Vol] 0.28 10*3/uL Normal <0.87 [facility] Comment on above: Order Comment: Speci men Type: BLOOD SPECIMEN Ordering Facility: [facility] Address: [place] [address] Performed By: #### 2 276-4, 23201-2, 2132-03, 2284-02 #### [facility] CLIA [id number] [address] [place] [address] [place] Monocytes/100 WBC (Bld) 5.2 % Normal [facility] Comment on above: Order Comment: Speci men Type: BLOOD SPECIMEN Ordering Facility: [facility] Address: [place] [address] Performed By: #### 2 276-4, 22240-3, 2132-03, 2284-02 #### [facility] CLIA [id number] [address] [place] [address] [place] Neutrophils (Bld) [#/Vol] 2.32 10*3/uL Normal 1.45-7.[address] [facility] Comment on above: Order Comment: Speci men Type: BLOOD SPECIMEN Ordering Facility: [facility] Address: [place] [address] Performed By: #### 2 276-4, 22764-8, 2132-03, 2284-02 #### [facility] CLIA [id number] [address] [place] [address] [place] Neutrophils/100 WBC (Bld) 43.1 % Normal [facility] Comment on above: Order Comment: Speci men Type: BLOOD SPECIMEN Ordering Facility: [facility] Address: [place] [address] Performed By: #### 2 276-4, 15884-9, 2132-03, 2284-02 #### [facility] CLIA [id number] [address] [place] [address] [place] Nucleated RBC (Bld) [#/Vol] 10*3/uL Normal <0.01 [facility] Comment on above: Order Comment: Speci men Type: BLOOD SPECIMEN Ordering Facility: [facility] Address: [place] [address] Performed By: #### 2 276-4, 84320-3, 2132-03, 2284-02 #### [facility] CLIA [id number] [address] [place] [address] [place] Nucleated RBC/100 WBC (Bld) [Ratio] 0.0 /[address] [facility] Comment on above: Order Comment: Speci men Type: BLOOD SPECIMEN Ordering Facility: [facility] Address: [address] [address] Performed By: #### 2 276-4, 21909-1, 2132-03, 2284-02 #### [facility] CLIA [id number] [address] [place] [address] [place] Platelet mean volume (Bld) [Entitic vol] 10.1 fL Normal 9.0-12.7 [facility] Comment on above: Order Comment: Speci men Type: BLOOD SPECIMEN Ordering Facility: [facility] Address: [address] [place] [address] Performed By: #### 2 276-4, 37480-6, 2132-03, 2284-02 #### [facility] CLIA [id number] [address] [place] [address] [place] Platelets (Bld) [#/Vol] 122 10*3/uL Low 150-400 [facility] Comment on above: Order Comment: Speci men Type: BLOOD SPECIMEN Ordering Facility: [facility] Address: [place] [address] Performed By: #### 2 276-4, 83156-7, 2131-9, 2283-8 #### [facility] CLIA [id number] [address] [place] [address] [place] RBC (Bld) [#/Vol] 3.78 10*6/uL Low 3.90-5.20 [facility] Comment on above: Order Comment: Speci men Type: BLOOD SPECIMEN Ordering Facility: [facility] Address: [place] [address] Performed By: #### 2 276-4, 80188-6, 2131-9, 2283-8 #### [facility] CLIA [id number] [address] [place] [address] [place] WBC (Bld) [#/Vol] 5.37 10*3/uL Normal 3.70-11.00 [facility] Comment on above: Order Comment: Speci men Type: BLOOD SPECIMEN Ordering Facility: [facility] Address: [address] [place] [address] Performed By: #### 2 276-4, 85793-7, 2131-9, 2283-8 #### [facility] CLIA [id number] [address] [place] [address] [place] CNOVSPon 01-26-2023 CNOVSP Visit (SP) Office ( [facility]) ANDREI LEO ([id number]) 1950 F Date Time Provider Department 01/26/23 2:45 PM RINKU RAMSEY During your visit today, we recorded the following information about you: Temperature Pulse Respiration Blood pressure 97.6 degrees 75/minute 18/minute 147/77 Weight Height 89.1 kg 1.588 m Rinku Ramsey MD 01/26/2023 3:16 PM Signed NAME: Andrei Leo CLINIC NO.: [id number] DATE OF SERVICE: January 26, 2023 (Roxy) Some elements in this clinic note that are critical to medical decision making have been carefully reviewed and included from a prior clinic note dated: December 15, 2022 (Roxy) Additional Clinicians involved in Andrei Leo's care: Dr. Shay, Dr. Deluna CC: Chronic ITP ASSESSMENT/PLAN: 1. Thrombocytopenia (HCC) - ICD9: 287.5, ICD10: D69.6 (primary diagnosis) She has chronic ITP. She has repsonded to Rituxan in the past, most recently she was on Plaquenil (with a history of Lupus) and did not respond to this. Bone marrow biopsy September 13, 2019 showed unremarkable maturing trilineage hematopoiesis. Completed 4 weekly doses of Rituxan 11/2019 and platelet counts improved but still low. 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 - Continues to respond to Tavalisse started 05/2021. 2. Pulmonary nodules - ICD9: 793.19, ICD10: R91.8 : 12/31/2020 CT Chest stable. No new findings. 3. Lupus (HCC) - ICD9: 710.0, ICD10: M32.9: She is asymptomatic from Lupus of the skin. 4. 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 5. HTN - continue Losartan plus HCTZ and continue managing HTN. Improved control even on Tavalisse. 6. Read lesion - may need biopsy in future. PLAN: Continue Tavalisse 100 mg twice daily. Follow up in 6 weeks with labs. Treatment to Date: 05/14/2021 - Current: Tavalisse 4. 10/31/2019 - 11/21/2019: Weekly Rituxan x 4 3. 04/11/2019 Plaquenil which she stopped 2. January 2019 Prednisone 1. 2018 Rituxan X 4 HPI: Updated Visit, January 26, 2023: went to [place] with bad [place], brother's did of cancer, grand-nephew in [place] passed from ALL -- so she is stressed. Platelets stable at 122. LFT slightly elevated. Updated Visit, December 15, 2022: Doing well but mole is enlarging and bothering her on her left scalp. Platelets 113. Updated Visit, October 27, 2022: Doing well. Labs are great - platelets 119 Updated Visit, September 15, 2022: Andrei continues to do very well. Very busy with family life and issues. No new complaints. Updated Visit, August 04, 2022: Andrei Leo returns for follow-up. She remains on Tavalisse and is tolerating it well. She denies any bleeding or abnormal bruising. Since her last visit she had a colonoscopy and had polyps removed. She states that she was notified of the biopsy results which were negative. She is scheduled for a hearing test on 08/10/2022 and will then see ENT for follow-up on 08/30/2022. 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 Overall, she is doing well today with no new complaints. Updated Visit, June 23, 2022: Andrei is doing well on Tavalisse 100 mg BID. Plts 118. Right anterior read has a erythematous wide streak that throbs at night and is tender to touch. But it has been there for 6 months - 12/09/2021. I don't think this is an infection. She has edema in both legs. Will recommend trying Ice for 15 minutes at a time to see if she has some reduction in inflammation. It is possible that this is a manifestation of lupus. Will monitor. Consider a biopsy of skin if not resolved. Updated Visit, May 12, 2022: Andrei Leo returns for follow-up. She remains on Tavalisse 100 mg twice daily and is tolerating it well. There has been no significant medical changes since her last visit. She states that she is feeling okay. She states that she feels a sinus infection coming on. She noticed her right high becoming puffy which is a sign. She denies fevers and chills. No bleeding or abnormal bruising. She has a follow-up scheduled with nephrology in either June or July. She offers no new complaints today. No new issues, problems or concerns. Updated Visit, March 31, 2022: Andrei is 71 yo and returns in follow up for ITP currently controlled with fostamatinib. Seems to bruise more easily with blood draws. Labs are stable. Plts 119k, hgb 11.6 Tolerating Tavalisse without difficulty however, LFT will need to be monitored as they are slightly increased. Got back from [place] and saw her sisters and had a nice trip with her of 54 yrs. Updated Visit, February 11, 2022: Andrei Leo returns for scheduled follow-up. She remains on Tavalisse 100 mg twice daily and is tolerating it well. She den (more content not included)... Normal [facility] Comprehensive metabolic 2000 panelon 01-26-2023 Albumin [Mass/Vol] 3.9 g/dL Normal 3.9-4.9 [facility] Comment on above: Order Comment: Speci men Type: BLOOD SPECIMENOrdering Facility: [facility] Address: [address] [place] [address] Performed By: #### 2 4323-8 ####[facility] LABCLIA [id number] [place] [address] ALP [Catalytic activity/Vol] 80 U/L Normal 34-123 [facility] Comment on above: Order Comment: Fabricio tapia Type: BLOOD SPECIMENOrdering Facility: [facility] Address: [address] [place] [address] Performed By: #### 2 4323-8 ####[facility] LABCLIA [id number] [place] [address] ALT [Catalytic activity/Vol] 46 U/L High 7-38 [facility] Comment on above: Order Comment: Fabricio tapia Type: BLOOD SPECIMENOrdering Facility: [facility] Address: [address] [place] [place] [address] Performed By: #### 2 4323-8 ####[facility] LABCLIA [id number] [place] [address] Anion gap [Moles/Vol] 7 mmol/L Low 9-18 [facility] Comment on above: Order Comment: Speci men Type: BLOOD SPECIMENOrdering Facility: [facility] Address: [address] [place] [address] Performed By: #### 2 4323-8 ####[facility] LABCLIA [id number] [place] [address] AST [Catalytic activity/Vol] 75 U/L High 13-35 [facility] Comment on above: Order Comment: Speci men Type: BLOOD SPECIMENOrdering Facility: [facility] Address: [address] [place] [address] Performed By: #### 2 4323-8 ####[facility] LABCLIA [id number] [place] [address] Bilirubin [Mass/Vol] 0.8 mg/dL Normal 0.2-1.3 [facility] Comment on above: Order Comment: Speci men Type: BLOOD SPECIMENOrdering Facility: [facility] Address: [address] [place] [address] Performed By: #### 2 4323-8 ####[facility] LABCLIA [id number] [place] [address] Calcium [Mass/Vol] 9.5 mg/dL Normal 8.5-10.2 [facility] Comment on above: Order Comment: Speci men Type: BLOOD SPECIMENOrdering Facility: [facility] Address: [address] [place] [address] Performed By: #### 2 4323-8 ####[facility] LABCLIA [id number] [place] [address] Chloride [Moles/Vol] 102 mmol/L Normal 97-105 [facility] Comment on above: Order Comment: Speci men Type: BLOOD SPECIMENOrdering Facility: [facility] Address: [address] [address] Performed By: #### 2 4323-8 ####[facility] LABCLIA [id number] [place] [address] CO2 [Moles/Vol] 29 mmol/L Normal 22-30 [facility] Comment on above: Order Comment: Speci men Type: BLOOD SPECIMENOrdering Facility: [facility] Address: [address] [address] Performed By: #### 2 4323-8 ####[facility] LABCLIA [id number] [place] [address] Creatinine [Mass/Vol] 0.97 mg/dL High 0.58-0.96 [facility] Comment on above: Order Comment: Speci men Type: BLOOD SPECIMENOrdering Facility: [facility] Address: [address] [place] [address] Performed By: #### 2 4323-8 ####[facility] LABCLIA [id number] [place] [address] ESTIMATED GLOMERULAR FILTRATION RATE 62 mL/min/1.73m??? Normal >=60 [facility] Comment on above: Order Comment: Speci men Type: BLOOD SPECIMENOrdering Facility: [facility] Address: [address] [place] [address] Result Comment: Miryam mated Glomerular Filtration Rate (eGFR) is calculated using the 2020 CKD-EPI creatinine equation. This equation utilizes serum creatinine, sex, and age as parameters. The creatinine assay has traceable calibration to isotope dilution-mass spectrometry. Refer to KDIGO guidelines for clinical interpretation. In patients with unstable renal function, e.g. those with acute kidney injury, the eGFR may not accurately reflect actual GFR. Performed By: #### 2 4323-8 ####[facility] LABCLIA [id number] [place] [address] Glucose [Mass/Vol] 103 mg/dL High 74-99 [facility] Comment on above: Order Comment: Speci men Type: BLOOD SPECIMENOrdering Facility: [facility] Address: [address] [place], [place] [address] Result Comment: The [place] Diabetes Association (ADA) provides guidance for cutoff values for fasting glucose and random glucose. The ADA defines fasting as no caloric intake for at least 8 hours. Fasting plasma glucose results between 100 to 125 mg/dL indicate increased risk for diabetes (prediabetes). Fasting plasma glucose results greater than or equal to 126 mg/dL meet the criteria for diagnosis of diabetes. In the absence of unequivocal hyperglycemia, results should be confirmed by repeat testing. In a patient with classic symptoms of hyperglycemia or hyperglycemic crisis, random plasma glucose results greater than or equal to 200 mg/dL meet the criteria for diagnosis of diabetes. Reference: Standards of Medical Care in Diabetes 2016, [place] Diabetes Association. Diabetes Care. 2016.39(Suppl 1). Performed By: #### 2 4323-8 ####[facility] LABCLIA [id number] [place] [address] Potassium [Moles/Vol] 4.2 mmol/L Normal 3.7-5.1 [facility] Comment on above: Order Comment: Speci men Type: BLOOD SPECIMENOrdering Facility: [facility] Address: [address] [place], [place] [address] Performed By: #### 2 4323-8 ####[facility] LABCLIA [id number] [place] [address] Protein [Mass/Vol] 7.7 g/dL Normal 6.3-8.0 [facility] Comment on above: Order Comment: Speci men Type: BLOOD SPECIMENOrdering Facility: [facility] Address: [address] [id number] Performed By: #### 2 4323-8 ####[facility] LABCLIA [id number] [place] [address] Sodium [Moles/Vol] 138 mmol/L Normal 136-144 [facility] Comment on above: Order Comment: Speci men Type: BLOOD SPECIMENOrdering Facility: [facility] Address: [address] [place] [address] Performed By: #### 2 4323-8 ####[facility] LABCLIA [id number] [place] [address] Urea nitrogen [Mass/Vol] 24 mg/dL High 7-21 [facility] Comment on above: Order Comment: Speci men Type: BLOOD SPECIMENOrdering Facility: [facility] Address: [address] [place] [address] Performed By: #### 2 4323-8 ####[facility] LABCLIA [id number] [place] [id number] CBC W Auto Differential pane l (Bld)on 12-15-2022 Basophils (Bld) [#/Vol] 10*3/uL Normal <0.11 [facility] Comment on above: Order Comment: Speci men Type: BLOOD SPECIMENOrdering Facility: [facility] Address: [address] [place] [address] Performed By: #### 5 7021-8 ####[facility] LABIA [id number] [place] [id number] Basophils/100 WBC (Bld) 0.2 % Normal [facility] Comment on above: Order Comment: Speci men Type: BLOOD SPECIMENOrdering Facility: [facility] Address: [address] [place] [address] Performed By: #### 5 7021-8 ####[facility] LABCLIA [id number] [place] [address] Differential cell count method Nom (Bld) Auto Normal [facility] Comment on above: Order Comment: Speci men Type: BLOOD SPECIMENOrdering Facility: [facility] Address: [address] [place] [address] Performed By: #### 5 7021-8 ####[facility] LABCLIA [id number] [place] [address] Eosinophils (Bld) [#/Vol] 10*3/uL Normal <0.46 [facility] Comment on above: Order Comment: Speci men Type: BLOOD SPECIMENOrdering Facility: [facility] Address: [address] [place] [address] Performed By: #### 5 7021-8 ####[facility] LABCLIA [id number] [place] [address] Eosinophils/100 WBC (Bld) 0.5 % Normal [facility] Comment on above: Order Comment: Speci men Type: BLOOD SPECIMENOrdering Facility: [facility] Address: [address] [place] [address] Performed By: #### 5 7021-8 ####[facility] LABCLIA [id number] [place] [address] Erythrocyte distribution wid th (RBC) [Ratio] 14.6 % Normal 11.5-15.0 [facility] Comment on above: Order Comment: Speci men Type: BLOOD SPECIMENOrdering Facility: [facility] Address: [address] [place] [address] Performed By: #### 5 7021-8 ####[facility] LABCLIA [id number] [place] [address] Hematocrit (Bld) [Volume fraction] 35.2 % Low 3 6.0-46.0 [facility] Comment on above: Order Comment: Speci men Type: BLOOD SPECIMENOrdering Facility: [facility] Address: [address] [place] [address] Performed By: #### 5 7021-8 ####[facility] LABCLIA [id number] [place] [address] Hemoglobin (Bld) [Mass/Vol] 11.2 g/dL Low 11.5-15. 5 [facility] Comment on above: Order Comment: Speci men Type: BLOOD SPECIMENOrdering Facility: [facility] Address: [address] [place] [address] Performed By: #### 5 7021-8 ####[facility] LABCLIA [id number] [place] [address] Immature granulocytes (Bld) [#/Vol] 10*3/uL Normal <0.10 [facility] Comment on above: Order Comment: Speci men Type: BLOOD SPECIMENOrdering Facility: [facility] Address: [address] [place] [address] Performed By: #### 5 7021-8 ####[facility] LABCLIA [id number] [place] [address] Immature granulocytes/100 WBC (Bld) 0.2 % Normal [facility] Comment on above: Order Comment: Speci men Type: BLOOD SPECIMENOrdering Facility: [facility] Address: [address] [place] [address] Performed By: #### 5 7021-8 ####[facility] LABCLIA [id number] [place] [address] Lymphocytes (Bld) [#/Vol] 2.22 10*3/uL Normal 1.00-4.[address] [facility] Comment on above: Order Comment: Speci men Type: BLOOD SPECIMENOrdering Facility: [facility] Address: [address] [place] [address] Performed By: #### 5 7021-8 ####[facility] LABCLIA [id number] [place] [address] Lymphocytes/100 WBC (Bld) 51.0 % Normal [facility] Comment on above: Order Comment: Speci men Type: BLOOD SPECIMENOrdering Facility: [facility] Address: [address] [place] [address] Performed By: #### 5 7021-8 ####[facility] LABCLIA [id number] [place] [address] MCH (RBC) [Entitic mass] 30.0 pg Normal 26.0-34.0 [facility] Comment on above: Order Comment: Speci men Type: BLOOD SPECIMENOrdering Facility: [facility] Address: [address] [address] Performed By: #### 5 7021-8 ####[facility] LABCLIA [id number] [place] [address] MCHC (RBC) [Mass/Vol] 31.8 g/dL Normal 30.5-36.0 [facility] Comment on above: Order Comment: Speci men Type: BLOOD SPECIMENOrdering Facility: [facility] Address: [address] [address] Performed By: #### 5 7021-8 ####[facility] LABCLIA [id number] [place] [address] MCV (RBC) [Entitic vol] 94.4 fL Normal 80.0-100.0 [facility] Comment on above: Order Comment: Speci men Type: BLOOD SPECIMENOrdering Facility: [facility] Address: [address] [address] Performed By: #### 5 7021-8 ####[facility] LABCLIA [id number] [place] [address] Monocytes (Bld) [#/Vol] 0.20 10*3/uL Normal <0.87 [facility] Comment on above: Order Comment: Speci men Type: BLOOD SPECIMENOrdering Facility: [facility] Address: [address] [place] [address] Performed By: #### 5 7021-8 ####[facility] LABCLIA [id number] [place] [address] Monocytes/100 WBC (Bld) 4.6 % Normal [facility] Comment on above: Order Comment: Speci men Type: BLOOD SPECIMENOrdering Facility: [facility] Address: [address] [place] [address] Performed By: #### 5 7021-8 ####[facility] LABCLIA [id number] [place] [address] Neutrophils (Bld) [#/Vol] 1.89 10*3/uL Normal 1.45-7.[address] [facility] Comment on above: Order Comment: Speci men Type: BLOOD SPECIMENOrdering Facility: [facility] Address: [address] [place] [address] Performed By: #### 5 7021-8 ####[facility] LABCLIA [id number] [place] [address] Neutrophils/100 WBC (Bld) 43.5 % Normal [facility] Comment on above: Order Comment: Speci men Type: BLOOD SPECIMENOrdering Facility: [facility] Address: [address] [place] [address] Performed By: #### 5 7021-8 ####[facility] LABCLIA [id number] [place] [address] Nucleated RBC (Bld) [#/Vol] 10*3/uL Normal <0.01 [facility] Comment on above: Order Comment: Speci men Type: BLOOD SPECIMENOrdering Facility: [facility] Address: [address] [place] [address] Performed By: #### 5 7021-8 ####[facility] LABCLIA [id number] [place] [address] Nucleated RBC/100 WBC (Bld) [Ratio] 0.0 /[address] [facility] Comment on above: Order Comment: Speci men Type: BLOOD SPECIMENOrdering Facility: [facility] Address: [address] [place] [address] Performed By: #### 5 7021-8 ####[facility] LABIA [id number] [place] [address] Platelet mean volume (Bld) [ Entitic vol] 9.7 fL Normal 9.0-12.7 [facility] Comment on above: Order Comment: Speci men Type: BLOOD SPECIMENOrdering Facility: [facility] Address: [address] [place] [address] Performed By: #### 5 7021-8 ####[facility] LABIA [id number] [place] [address] Platelets (Bld) [#/Vol] 113 10*3/uL Low 150-400 [facility] Comment on above: Order Comment: Speci men Type: BLOOD SPECIMENOrdering Facility: [facility] Address: [address] [place] [address] Performed By: #### 5 7021-8 ####[facility] LABIA [id number] [place] [address] RBC (Bld) [#/Vol] 3.73 10*6/uL Low 3.90-5.20 [facility] Comment on above: Order Comment: Speci men Type: BLOOD SPECIMENOrdering Facility: [facility] Address: [address] [place] [address] Performed By: #### 5 7021-8 ####[facility] [id number] [place] [address] WBC (Bld) [#/Vol] 4.35 10*3/uL Normal 3.70-11.00 [facility] Comment on above: Order Comment: Speci men Type: BLOOD SPECIMENOrdering Facility: [facility] Address: [address] [place] [address] Performed By: #### 5 7021-8 ####[facility] LABIA [id number] [place] [address] CNOVSPon 12-15-2022 CNOVSP Visit (SP) Office (Jennifer QUISPE) ANDREI LEO ([id number]) 1950 F Date Time Provider Department 12/15/22 2:00 PM RINKU RAMSEY During your visit today, we recorded the following information about you: Temperature Pulse Respiration Blood pressure 97.5 degrees 64/minute 16/minute 152/8 Weight Height 87.4 kg 1.588 m Rinku Ramsey MD 12/15/2022 2:41 PM Signed NAME: Andrei Leo CLINIC NO.: [id number] DATE OF SERVICE: December 15, 2022 (Roxy) Some elements in this clinic note that are critical to medical decision making have been carefully reviewed and included from a prior clinic note dated: October 27, 2022 (Roxy) Additional Clinicians involved in Andrei Leo's care: Dr. Shay, Dr. Deluna CC: Chronic ITP ASSESSMENT/PLAN: 1. Thrombocytopenia (HCC) - ICD9: 287.5, ICD10: D69.6 (primary diagnosis) She has chronic ITP. She has repsonded to Rituxan in the past, most recently she was on Plaquenil (with a history of Lupus) and did not respond to this. Bone marrow biopsy September 13, 2019 showed unremarkable maturing trilineage hematopoiesis. Completed 4 weekly doses of Rituxan 11/2019 and platelet counts improved but still low. 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 - Continues to respond to Tavalisse started 05/2021. 2. Pulmonary nodules - ICD9: 793.19, ICD10: R91.8 : 12/31/2020 CT Chest stable. No new findings. 3. Lupus (HCC) - ICD9: 710.0, ICD10: M32.9: She is asymptomatic from Lupus of the skin. 4. 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 5. HTN - continue Losartan plus HCTZ and continue managing HTN. Improved control even on Tavalisse. 6. Read lesion - may need biopsy in future. PLAN: Continue Tavalisse 100 mg twice daily. Follow up in 6 weeks with labs. Treatment to Date: 05/14/2021 - Current: Tavalisse 4. 10/31/2019 - 11/21/2019: Weekly Rituxan x 4 3. 04/11/2019 Plaquenil which she stopped 2. January 2019 Prednisone 1. 2017 Rituxan X 4 HPI: Updated Visit, December 15, 2022: Doing well but mole is enlarging and bothering her on her left scalp. Platelets 113. Updated Visit, October 27, 2022: Doing well. Labs are great - platelets 119 Updated Visit, September 15, 2022: Andrei continues to do very well. Very busy with family life and issues. No new complaints. Updated Visit, August 04, 2022: Andrei Leo returns for follow-up. She remains on Tavalisse and is tolerating it well. She denies any bleeding or abnormal bruising. Since her last visit she had a colonoscopy and had polyps removed. She states that she was notified of the biopsy results which were negative. She is scheduled for a hearing test on 08/10/2022 and will then see ENT for follow-up on 08/30/2022. 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 Overall, she is doing well today with no new complaints. Updated Visit, June 23, 2022: Andrei is doing well on Tavalisse 100 mg BID. Plts 118. Right anterior read has a erythematous wide streak that throbs at night and is tender to touch. But it has been there for 6 months - 12/09/2021. I don't think this is an infection. She has edema in both legs. Will recommend trying Ice for 15 minutes at a time to see if she has some reduction in inflammation. It is possible that this is a manifestation of lupus. Will monitor. Consider a biopsy of skin if not resolved. Updated Visit, May 12, 2022: Andrei Leo returns for follow-up. She remains on Tavalisse 100 mg twice daily and is tolerating it well. There has been no significant medical changes since her last visit. She states that she is feeling okay. She states that she feels a sinus infection coming on. She noticed her right high becoming puffy which is a sign. She denies fevers and chills. No bleeding or abnormal bruising. She has a follow-up scheduled with nephrology in either June or July. She offers no new complaints today. No new issues, problems or concerns. Updated Visit, March 31, 2022: Andrei is 71 yo and returns in follow up for ITP currently controlled with fostamatinib. Seems to bruise more easily with blood draws. Labs are stable. Plts 119k, hgb 11.6 Tolerating Tavalisse without difficulty however, LFT will need to be monitored as they are slightly increased. Got back from [place] and saw her sisters and had a nice trip with her of 54 yrs. Updated Visit, February 11, 2022: Andrei Leo returns for scheduled follow-up. She remains on Tavalisse 100 mg twice daily and is tolerating it well. She denies any signs of bleeding or abnormal bruising. Also no signs of blood clots. She saw Dr. Gilson Troncoso today. She states that she was told she has protein in her urine. She will have her next follow-up with (more content not included)... Normal [facility] Comprehensive metabolic 2000 panelon 12-15-2022 Albumin [Mass/Vol] 3.8 g/dL Low 3.9-4.9 [facility] Comment on above: Order Comment: Fabricio tapia Type: BLOOD SPECIMEN Ordering Facility: [facility] Address: [place] [address] Performed By: #### 2 276-4, 29839-3, 2132-03, 2284-02 #### [facility] CLIA [id number] [address] [place] [address] [place] ALP [Catalytic activity/Vol] 76 U/L Normal 34-123 [facility] Comment on above: Order Comment: Fabricio tapia Type: BLOOD SPECIMEN Ordering Facility: [facility] Address: [place] [address] Performed By: #### 2 276-4, 03514-7, 2132-03, 2284-02 #### [facility] CLIA [id number] [address] [place] [address] [place] ALT [Catalytic activity/Vol] 24 U/L Normal 7-38 [facility] Comment on above: Order Comment: Speci men Type: BLOOD SPECIMEN Ordering Facility: [facility] Address: [place] [address] Performed By: #### 2 276-4, 98250-7, 2132-03, 2284-02 #### [facility] CLIA [id number] [address] [place] [address] [place] Anion gap [Moles/Vol] 8 mmol/L Low 9-18 [facility] Comment on above: Order Comment: Speci men Type: BLOOD SPECIMEN Ordering Facility: [facility] Address: [place] [address] Performed By: #### 2 276-4, 36082-3, 2132-03, 2284-02 #### [facility] CLIA [id number] [address] [place] [address] [place] AST [Catalytic activity/Vol] 37 U/L High 13-35 [facility] Comment on above: Order Comment: Speci men Type: BLOOD SPECIMEN Ordering Facility: [facility] Address: [address] [address] Performed By: #### 2 276-4, 94255-5, 2132-03, 2284-02 #### [facility] CLIA [id number] [address] [place] [address] [place] Bilirubin [Mass/Vol] 0.7 mg/dL Normal 0.2-1.3 [facility] Comment on above: Order Comment: Speci men Type: BLOOD SPECIMEN Ordering Facility: [facility] Address: [address] [place] [address] Performed By: #### 2 276-4, 39348-6, 2132-03, 2284-02 #### [facility] CLIA [id number] [address] [place] [id number] [place] Calcium [Mass/Vol] 9.6 mg/dL Normal 8.5-10.2 [facility] Comment on above: Order Comment: Speci men Type: BLOOD SPECIMEN Ordering Facility: [facility] Address: [place] [address] Performed By: #### 2 276-4, 83802-1, 2132-03, 2284-02 #### [facility] CLIA [id number] [address] [place] [address] [place] Chloride [Moles/Vol] 103 mmol/L Normal 97-105 [facility] Comment on above: Order Comment: Speci men Type: BLOOD SPECIMEN Ordering Facility: [facility] Address: [address] [place] [address] Performed By: #### 2 276-4, 50196-5, 2132-03, 2284-02 #### [facility] CLIA [id number] [address] [place] [address] [place] CO2 [Moles/Vol] 25 mmol/L Normal 22-30 [facility] Comment on above: Order Comment: Speci men Type: BLOOD SPECIMEN Ordering Facility: [facility] Address: [address] [facility] [place] [address] Performed By: #### 2 276-4, 64981-6, 2132-03, 2284-02 #### [facility] CLIA [id number] [address] [place] [address] [place] Creatinine [Mass/Vol] 0.86 mg/dL Normal 0.58-0.96 [facility] Comment on above: Order Comment: Speci men Type: BLOOD SPECIMEN Ordering Facility: [facility] Address: [address] [place] [address] Performed By: #### 2 276-4, 39186-2, 2132-03, 2284-02 #### [facility] CLIA [id number] [address] [address] [place] ESTIMATED GLOMERULAR FILTRATION RATE 72 mL/min/1.73m??? Normal >=60 [facility] Comment on above: Order Comment: Fabricio tapia Type: BLOOD SPECIMEN Ordering Facility: [facility] Address: [address] [place] [address] Result Comment: Miryam mated Glomerular Filtration Rate (eGFR) is calculated using the 2020 CKD-EPI creatinine equation. This equation utilizes serum creatinine, sex, and age as parameters. The creatinine assay has traceable calibration to isotope dilution-mass spectrometry. Refer to KDIGO guidelines for clinical interpretation. In patients with unstable renal function, e.g. those with acute kidney injury, the eGFR may not accurately reflect actual GFR. Performed By: #### 2 276-4, 04103-5, 2132-03, 2284-02 #### [facility] CLIA [id number] [address] [place] [address] [place] Glucose [Mass/Vol] 104 mg/dL High 74-99 [facility] Comment on above: Order Comment: Fabricio tapia Type: BLOOD SPECIMEN Ordering Facility: [facility] Address: [address] [place] [address] Result Comment: The [place] Diabetes [employer] (ADA) provides guidance for cutoff values for fasting glucose and random glucose. The ADA defines fasting as no caloric intake for at least 8 hours. Fasting plasma glucose results between 100 to 125 mg/dL indicate increased risk for diabetes (prediabetes). Fasting plasma glucose results greater than or equal to 126 mg/dL meet the criteria for diagnosis of diabetes. In the absence of unequivocal hyperglycemia, results should be confirmed by repeat testing. In a patient with classic symptoms of hyperglycemia or hyperglycemic crisis, random plasma glucose results greater than or equal to 200 mg/dL meet the criteria for diagnosis of diabetes. Reference: Standards of Medical Care in Diabetes 2016, [place] [employer]. Diabetes Care. 2016.39(Suppl 1). Performed By: #### 2 276-4, 54065-3, 2132-03, 2284-02 #### [facility] CLIA [id number] [address] [place] [address] [place] Potassium [Moles/Vol] 3.9 mmol/L Normal 3.7-5.1 [facility] Comment on above: Order Comment: Speci men Type: BLOOD SPECIMEN Ordering Facility: [facility] Address: [address] [place] [address] Performed By: #### 2 276-4, 81947-7, 2132-03, 2284-02 #### [facility] CLIA [id number] [address] [place] [address] [place] Protein [Mass/Vol] 7.5 g/dL Normal 6.3-8.0 [facility] Comment on above: Order Comment: Speci men Type: BLOOD SPECIMEN Ordering Facility: [facility] Address: [address] [place] [address] Performed By: #### 2 276-4, 93173-4, 2132-03, 2284-02 #### [facility] CLIA [id number] [address] [place] [address] [place] Sodium [Moles/Vol] 136 mmol/L Normal 136-144 [facility] Comment on above: Order Comment: Speci men Type: BLOOD SPECIMEN Ordering Facility: [facility] Address: [address] [place] [address] Performed By: #### 2 276-4, 29212-2, 2132-03, 2284-02 #### [facility] CLIA [id number] [address] [place] [address] [place] Urea nitrogen [Mass/Vol] 22 mg/dL High 7-21 [facility] Comment on above: Order Comment: Speci men Type: BLOOD SPECIMEN Ordering Facility: [facility] Address: [address] [place] [address] Performed By: #### 2 276-4, 92633-1, 2132-03, 2284-02 #### [facility] CLIA [id number] [address] [place] [address] [place] CBC W Auto Differential pane l (Bld)on 10-27-2022 Basophils (Bld) [#/Vol] 10*3/uL Normal <0.11 [facility] Comment on above: Order Comment: Speci men Type: BLOOD SPECIMENOrdering Facility: [facility] Address: [address] [place] [address] Performed By: #### 5 7021-8 ####[facility] LABCLIA [id number] [place] [address] Basophils/100 WBC (Bld) 0.2 % Normal [facility] Comment on above: Order Comment: Speci men Type: BLOOD SPECIMENOrdering Facility: [facility] Address: [address] [address] Performed By: #### 5 7021-8 ####[facility] LABCLIA [id number] [place] [address] Differential cell count method Nom (Bld) Auto Normal [facility] Comment on above: Order Comment: Speci men Type: BLOOD SPECIMENOrdering Facility: [facility] Address: [address] [place] [address] Performed By: #### 5 7021-8 ####[facility] LABCLIA [id number] [place] [address] Eosinophils (Bld) [#/Vol] 0.05 10*3/uL Normal <0.46 [facility] Comment on above: Order Comment: Speci men Type: BLOOD SPECIMENOrdering Facility: [facility] Address: [address] [place] [address] Performed By: #### 5 7021-8 ####[facility] LABCLIA [id number] [place] [address] Eosinophils/100 WBC (Bld) 1.0 % Normal [facility] Comment on above: Order Comment: Speci men Type: BLOOD SPECIMENOrdering Facility: [facility] Address: [address] [place] [address] Performed By: #### 5 7021-8 ####[facility] LABCLIA [id number] [place] [address] Erythrocyte distribution wid th (RBC) [Ratio] 14.4 % Normal 11.5-15.0 [facility] Comment on above: Order Comment: Speci men Type: BLOOD SPECIMENOrdering Facility: [facility] Address: [address] [place] [address] Performed By: #### 5 7021-8 ####[facility] LABCLIA [id number] [place] [address] Hematocrit (Bld) [Volume fraction] 34.0 % Low 3 6.0-46.0 [facility] Comment on above: Order Comment: Speci men Type: BLOOD SPECIMENOrdering Facility: [facility] Address: [address] [place] [address] Performed By: #### 5 7021-8 ####[facility] LABCLIA [id number] [place] [address] Hemoglobin (Bld) [Mass/Vol] 10.5 g/dL Low 11.5-15. 5 [facility] Comment on above: Order Comment: Speci men Type: BLOOD SPECIMENOrdering Facility: [facility] Address: [address] [place] [address] Performed By: #### 5 7021-8 ####[facility] LABCLIA [id number] [place] [address] Immature granulocytes (Bld) [#/Vol] 10*3/uL Normal <0.10 [facility] Comment on above: Order Comment: Speci men Type: BLOOD SPECIMENOrdering Facility: [facility] Address: [address] [place] [address] Performed By: #### 5 7021-8 ####[facility] LABCLIA [id number] [place] [address] Immature granulocytes/100 WBC (Bld) 0.2 % Normal [facility] Comment on above: Order Comment: Speci men Type: BLOOD SPECIMENOrdering Facility: [facility] Address: [address] [place] [address] Performed By: #### 5 7021-8 ####[facility] LABCLIA [id number] [place] [address] Lymphocytes (Bld) [#/Vol] 2.75 10*3/uL Normal 1.00-4.[address] [facility] Comment on above: Order Comment: Speci men Type: BLOOD SPECIMENOrdering Facility: [facility] Address: [address] [place] [address] Performed By: #### 5 7021-8 ####[facility] LABCLIA [id number] [place] [address] Lymphocytes/100 WBC (Bld) 53.6 % Normal [facility] Comment on above: Order Comment: Speci men Type: BLOOD SPECIMENOrdering Facility: [facility] Address: [address] [place] [address] Performed By: #### 5 7021-8 ####[facility] LABCLIA [id number] [place] [address] MCH (RBC) [Entitic mass] 29.3 pg Normal 26.0-34.0 [facility] Comment on above: Order Comment: Speci men Type: BLOOD SPECIMENOrdering Facility: [facility] Address: [address] [place] [address] Performed By: #### 5 7021-8 ####[facility] LABCLIA [id number] [place] [address] MCHC (RBC) [Mass/Vol] 30.9 g/dL Normal 30.5-36.0 [facility] Comment on above: Order Comment: Speci men Type: BLOOD SPECIMENOrdering Facility: [facility] Address: [address] [place] [address] Performed By: #### 5 7021-8 ####[facility] LABIA [id number] [place] [address] MCV (RBC) [Entitic vol] 95.0 fL Normal 80.0-100.0 [facility] Comment on above: Order Comment: Speci men Type: BLOOD SPECIMENOrdering Facility: [facility] Address: [address] [address] Performed By: #### 5 7021-8 ####[facility] LABCLIA [id number] [place] [address] Monocytes (Bld) [#/Vol] 0.24 10*3/uL Normal <0.87 [facility] Comment on above: Order Comment: Speci men Type: BLOOD SPECIMENOrdering Facility: [facility] Address: [address] [place] [address] Performed By: #### 5 7021-8 ####[facility] LABCLIA [id number] [place] [address] Monocytes/100 WBC (Bld) 4.7 % Normal [facility] Comment on above: Order Comment: Speci men Type: BLOOD SPECIMENOrdering Facility: [facility] Address: [address] [address] Performed By: #### 5 7021-8 ####[facility] LABCLIA [id number] [place] [address] Neutrophils (Bld) [#/Vol] 2.07 10*3/uL Normal 1.45-7.[address] [facility] Comment on above: Order Comment: Speci men Type: BLOOD SPECIMENOrdering Facility: [facility] Address: [address] [address] Performed By: #### 5 7021-8 ####[facility] LABCLIA [id number] [place] [address] Neutrophils/100 WBC (Bld) 40.3 % Normal [facility] Comment on above: Order Comment: Speci men Type: BLOOD SPECIMENOrdering Facility: [facility] Address: [address] [place], [place] [address] Performed By: #### 5 7021-8 ####[facility] LABCLIA [id number] [place] [address] Nucleated RBC (Bld) [#/Vol] 10*3/uL Normal <0.01 [facility] Comment on above: Order Comment: Speci men Type: BLOOD SPECIMENOrdering Facility: [facility] Address: [address] [place] [address] Performed By: #### 5 7021-8 ####[facility] LABCLIA [id number] [place] [address] Nucleated RBC/100 WBC (Bld) [Ratio] 0.0 /[address] [facility] Comment on above: Order Comment: Speci men Type: BLOOD SPECIMENOrdering Facility: [facility] Address: [address] [place] [address] Performed By: #### 5 7021-8 ####[facility] LABIA [id number] [place] [address] Platelet mean volume (Bld) [Entitic vol] 10.1 fL Normal 9.0-12.7 [facility] Comment on above: Order Comment: Speci men Type: BLOOD SPECIMENOrdering Facility: [facility] Address: [address] [place] [address] Performed By: #### 5 7021-8 ####[facility] LABCLIA [id number] [place] [address] Platelets (Bld) [#/Vol] 119 10*3/uL Low 150-400 [facility] Comment on above: Order Comment: Speci men Type: BLOOD SPECIMENOrdering Facility: [facility] Address: [address] [place] [address] Performed By: #### 5 7021-8 ####[facility] LABCLIA [id number] [place] [address] RBC (Bld) [#/Vol] 3.58 10*6/uL Low 3.90-5.20 [facility] Comment on above: Order Comment: Speci men Type: BLOOD SPECIMENOrdering Facility: [facility] Address: [place] [address] Performed By: #### 5 7021-8 ####[facility] LABIA [id number] [place] [address] WBC (Bld) [#/Vol] 5.13 10*3/uL Normal 3.70-11.00 [facility] Comment on above: Order Comment: Speci men Type: BLOOD SPECIMENOrdering Facility: [facility] Address: [place] [address] Performed By: #### 5 7021-8 ####[facility] LABIA [id number] [place] [address] CNOVSPon 10-27-2022 CNOVSP Visit (SP) Office ([facility]) ANDREI LEO ([id number]) 1950 F Date Time Provider Department 10/27/22 3:00 PM RINKU RAMSEY During your visit today, we recorded the following information about you: Temperature Pulse Respiration Blood pressure 97.4 degrees 71/minute 18/minute 164/84 Weight Height 87.4 kg 1.588 m Rinku Ramsey MD 10/27/2022 3:38 PM Signed NAME: Andrei Leo AYALA NO.: [id number] DATE OF SERVICE: October 27, 2022 (Roxy) Some elements in this clinic note that are critical to medical decision making have been carefully reviewed and included from a prior clinic note dated: September 15, 2022 (Roxy) Additional Clinicians involved in Andrei Ruben Leo's care: Dr. Dr. Mikie Shay CC: Chronic ITP ASSESSMENT/PLAN: 1. Thrombocytopenia (HCC) - ICD9: 287.5, ICD10: D69.6 (primary diagnosis) She has chronic ITP. She has repsonded to Rituxan in the past, most recently she was on Plaquenil (with a history of Lupus) and did not respond to this. Bone marrow biopsy September 13, 2019 showed unremarkable maturing trilineage hematopoiesis. Completed 4 weekly doses of Rituxan 11/2019 and platelet counts improved but still low. 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 - Continues to respond to Tavalisse started 05/2021. 2. Pulmonary nodules - ICD9: 793.19, ICD10: R91.8 : 12/31/2020 CT Chest stable. No new findings. 3. Lupus (HCC) - ICD9: 710.0, ICD10: M32.9: She is asymptomatic from Lupus of the skin. 4. 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 5. HTN - continue Losartan plus HCTZ and continue managing HTN. Improved control even on Tavalisse. 6. Read lesion - may need biopsy in future. PLAN: Continue Tavalisse 100 mg twice daily. (Actually takes 2 pills at the same time) Follow up in 6 weeks with labs. Treatment to Date: . 05/14/2021 - Current: Tavalisse 4. 10/31/2019 - 11/21/2019: Weekly Rituxan x 4 3. 04/11/2019 Plaquenil which she stopped 2. January 2019 Prednisone 1. 2017 Rituxan X 4 HPI: Updated Visit, October 27, 2022: Doing well. Labs are great - platelets 119 Updated Visit, September 15, 2022: Andrei continues to do very well. Very busy with family life and issues. No new complaints. Updated Visit, August 04, 2022: Andrei Leo returns for follow-up. She remains on Tavalisse and is tolerating it well. She denies any bleeding or abnormal bruising. Since her last visit she had a colonoscopy and had polyps removed. She states that she was notified of the biopsy results which were negative. She is scheduled for a hearing test on 08/10/2022 and will then see ENT for follow-up on 08/30/2022. 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 Overall, she is doing well today with no new complaints. Updated Visit, June 23, 2022: Andrei is doing well on Tavalisse 100 mg BID. Plts 118. Right anterior read has a erythematous wide streak that throbs at night and is tender to touch. But it has been there for 6 months - 12/09/2021. I don't think this is an infection. She has edema in both legs. Will recommend trying Ice for 15 minutes at a time to see if she has some reduction in inflammation. It is possible that this is a manifestation of lupus. Will monitor. Consider a biopsy of skin if not resolved. Updated Visit, May 12, 2022: Andrei Leo returns for follow-up. She remains on Tavalisse 100 mg twice daily and is tolerating it well. There has been no significant medical changes since her last visit. She states that she is feeling okay. She states that she feels a sinus infection coming on. She noticed her right high becoming puffy which is a sign. She denies fevers and chills. No bleeding or abnormal bruising. She has a follow-up scheduled with nephrology in either June or July. She offers no new complaints today. No new issues, problems or concerns. Updated Visit, March 31, 2022: Andrei is 71 yo and returns in follow up for ITP currently controlled with fostamatinib. Seems to bruise more easily with blood draws. Labs are stable. Plts 119k, hgb 11.6 Tolerating Tavalisse without difficulty however, LFT will need to be monitored as they are slightly increased. Got back from [place] and saw her sisters and had a nice trip with her of 54 yrs. Updated Visit, February 11, 2022: Andrei Leo returns for scheduled follow-up. She remains on Tavalisse 100 mg twice daily and is tolerating it well. She denies any signs of bleeding or abnormal bruising. Also no signs of blood clots. She saw Dr. Gilson Troncoso today. She states that she was told she has protein in her urine. She will have her next follow-up with nephrology in 6 months. She is stil having issues with her sinuses and (more content not included)... Normal [facility] Comprehensive metabolic 2000 panelon 10-27-2022 Albumin [Mass/Vol] 3.6 g/dL Low 3.9-4.9 [facility] Comment on above: Order Comment: Speci men Type: BLOOD SPECIMEN Ordering Facility: [facility] Address: [address] [place] [address] Performed By: #### 2 276-4, 34757-9, 2132-03, 2284-02 #### [facility] CLIA [id number] [address] [place] [address] [place] ALP [Catalytic activity/Vol] 74 U/L Normal 34-123 [facility] Comment on above: Order Comment: Speci men Type: BLOOD SPECIMEN Ordering Facility: [facility] Address: [address] [place] [address] Performed By: #### 2 276-4, 53244-2, 2132-03, 2284-02 #### [facility] CLIA [id number] [address] [place] [address] [place] ALT [Catalytic activity/Vol] 31 U/L Normal 7-38 [facility] Comment on above: Order Comment: Speci men Type: BLOOD SPECIMEN Ordering Facility: [facility] Address: [address] [place] [address] Performed By: #### 2 276-4, 11052-5, 2132-03, 2284-02 #### [facility] CLIA [id number] [address] [address] [place] Anion gap [Moles/Vol] 8 mmol/L Low 9-18 [facility] Comment on above: Order Comment: Speci men Type: BLOOD SPECIMEN Ordering Facility: [facility] Address: [address] [place] [address] Performed By: #### 2 276-4, 87970-3, 2132-03, 2284-02 #### [facility] CLIA [id number] [address] [place] [id number] [place] AST [Catalytic activity/Vol] 45 U/L High 13-35 [facility] Comment on above: Order Comment: Speci men Type: BLOOD SPECIMEN Ordering Facility: [facility] Address: [address] [place] [address] Performed By: #### 2 276-4, 45915-9, 2132-03, 2284-02 #### [facility] CLIA [id number] [address] [place] [address] [place] Bilirubin [Mass/Vol] 0.4 mg/dL Normal 0.2-1.3 [facility] Comment on above: Order Comment: Speci men Type: BLOOD SPECIMEN Ordering Facility: [facility] Address: [address] [place] [address] Performed By: #### 2 276-4, 39571-3, 2132-03, 2284-02 #### [facility] CLIA [id number] [address] [place] [address] [place] Calcium [Mass/Vol] 9.3 mg/dL Normal 8.5-10.2 [facility] Comment on above: Order Comment: Speci men Type: BLOOD SPECIMEN Ordering Facility: [facility] Address: [address] [place] [address] Performed By: #### 2 276-4, 56254-6, 2132-03, 2284-02 #### [facility] CLIA [id number] [address] [place], [place] [id number] [place] Chloride [Moles/Vol] 105 mmol/L Normal 97-105 [facility] Comment on above: Order Comment: Speci men Type: BLOOD SPECIMEN Ordering Facility: [facility] Address: [address] [place] [address] Performed By: #### 2 276-4, 53986-8, 2132-03, 2284-02 #### [facility] CLIA [id number] [address] [place] [address] [place] CO2 [Moles/Vol] 27 mmol/L Normal 22-30 [facility] Comment on above: Order Comment: Speci men Type: BLOOD SPECIMEN Ordering Facility: [facility] Address: [address] [place] [address] Performed By: #### 2 276-4, 30368-9, 2132-03, 2284-02 #### [facility] CLIA [id number] [address] [place] [address] [place] Creatinine [Mass/Vol] 0.90 mg/dL Normal 0.58-0.96 [facility] Comment on above: Order Comment: Speci men Type: BLOOD SPECIMEN Ordering Facility: [facility] Address: [address] [place] [address] Performed By: #### 2 276-4, 70460-6, 2132-03, 2284-02 #### [facility] CLIA [id number] [address] [place] [address] [place] ESTIMATED GLOMERULAR FILTRATION RATE 68 mL/min/1.73m??? Normal >=60 [facility] Comment on above: Order Comment: Speci men Type: BLOOD SPECIMEN Ordering Facility: [facility] Address: [address] [place] [address] Result Comment: Miryam mated Glomerular Filtration Rate (eGFR) is calculated using the 2020 CKD-EPI creatinine equation. This equation utilizes serum creatinine, sex, and age as parameters. The creatinine assay has traceable calibration to isotope dilution-mass spectrometry. Refer to KDIGO guidelines for clinical interpretation. In patients with unstable renal function, e.g. those with acute kidney injury, the eGFR may not accurately reflect actual GFR. Performed By: #### 2 276-4, 89055-2, 2132-03, 2284-02 #### [facility] CLIA [id number] [address] [place] [id number] [place] Glucose [Mass/Vol] 109 mg/dL High 74-99 [facility] Comment on above: Order Comment: Fabricio tapia Type: BLOOD SPECIMEN Ordering Facility: [facility] Address: [address] [place] [address] Result Comment: The [place] Diabetes Association (ADA) provides guidance for cutoff values for fasting glucose and random glucose. The ADA defines fasting as no caloric intake for at least 8 hours. Fasting plasma glucose results between 100 to 125 mg/dL indicate increased risk for diabetes (prediabetes). Fasting plasma glucose results greater than or equal to 126 mg/dL meet the criteria for diagnosis of diabetes. In the absence of unequivocal hyperglycemia, results should be confirmed by repeat testing. In a patient with classic symptoms of hyperglycemia or hyperglycemic crisis, random plasma glucose results greater than or equal to 200 mg/dL meet the criteria for diagnosis of diabetes. Reference: Standards of Medical Care in Diabetes 2016, [place] [employer]. Diabetes Care. 2016.39(Suppl 1). Performed By: #### 2 276-4, 74862-0, 2132-03, 2284-02 #### [facility] CLIA [id number] [address] [place] [address] [place] Potassium [Moles/Vol] 3.4 mmol/L Low 3.7-5.1 [facility] Comment on above: Order Comment: Fabricio tapia Type: BLOOD SPECIMEN Ordering Facility: [facility] Address: [address] [place] [address] Performed By: #### 2 276-4, 63059-3, 2132-03, 2284-02 #### [facility] CLIA [id number] [address] [place] [address] [place] Protein [Mass/Vol] 7.4 g/dL Normal 6.3-8.0 [facility] Comment on above: Order Comment: Fabricio tapia Type: BLOOD SPECIMEN Ordering Facility: [facility] Address: [address] [place] [address] Performed By: #### 2 276-4, 01561-2, 9, 2284-02 #### [facility] CLIA [id number] [facility] [place] [address] [place] Sodium [Moles/Vol] 140 mmol/L Normal 136-144 [facility] Comment on above: Order Comment: Speci men Type: BLOOD SPECIMEN Ordering Facility: [facility] Address: [address] [place] [address] Performed By: #### 2 276-4, 54186-9, 9, 2284-02 #### [facility] CLIA [id number] [address] [place] [address] [place] Urea nitrogen [Mass/Vol] 25 mg/dL High 7-21 [facility] Comment on above: Order Comment: Speci men Type: BLOOD SPECIMEN Ordering Facility: [facility] Address: [address] [place] [address] Performed By: #### 2 276-4, 97534-5, 9, 2284-02 #### [facility] CLIA [id number] [address] [place] [address] [place] CBC W Auto Differential pane l (Bld)on 09-15-2022 Basophils (Bld) [#/Vol] 10*3/uL Normal <0.11 [facility] Comment on above: Order Comment: Speci men Type: BLOOD SPECIMEN Ordering Facility: [facility] Address: [address] [place] [address] Performed By: #### 2 276-4, 83241-2, 2132-03, 2284-02 #### [facility] CLIA [id number] [address] [place] [address] [place] Basophils/100 WBC (Bld) 0.2 % [facility]: Order Comment: Speci men Type: BLOOD SPECIMEN Ordering Facility: [facility] Address: [address] [place] [address] Performed By: #### 2 276-4, 33898-2, 2132-03, 2284-02 #### [facility] CLIA [id number] [address] [place] [address] [place] Differential cell count method Nom (Bld) Auto Normal [facility] Comment on above: Order Comment: Speci men Type: BLOOD SPECIMEN Ordering Facility: [facility] Address: [address] [place] [address] Performed By: #### 2 276-4, 15161-3, 9, 8 #### [facility] CLIA [id number] [address] [place] [address] [place] Eosinophils (Bld) [#/Vol] 0.05 10*3/uL Normal <0.46 [facility] Comment on above: Order Comment: Speci men Type: BLOOD SPECIMEN Ordering Facility: [facility] Address: [address] [place] [address] Performed By: #### 2 276-4, 58734-9, 2132-03, 2284-02 #### [facility] CLIA [id number] [address] [place] [address] [place] Eosinophils/100 WBC (Bld) 1.0 % Normal [facility] Comment on above: Order Comment: Speci men Type: BLOOD SPECIMEN Ordering Facility: [facility] Address: [address] [place] [address] Performed By: #### 2 276-4, 84163-2, 9, 8 #### [facility] CLIA [id number] [address] [place] [address] [place] Erythrocyte distribution wid th (RBC) [Ratio] 14.6 % Normal 11.5-15.0 [facility] Comment on above: Order Comment: Speci men Type: BLOOD SPECIMEN Ordering Facility: [facility] Address: [address] [place] [address] Performed By: #### 2 276-4, 82786-9, 9, 8 #### [facility] CLIA [id number] [address] [place] [address] [place] Hematocrit (Bld) [Volume fraction] 35.0 % Low 3 6.0-46.0 [facility] Comment on above: Order Comment: Speci men Type: BLOOD SPECIMEN Ordering Facility: [facility] Address: [address] [place] [address] Performed By: #### 2 276-4, 64194-8, 9, 8 #### [facility] CLIA [id number] [address] [place] [address] [place] Hemoglobin (Bld) [Mass/Vol] 10.9 g/dL Low 11.5-15. 5 [facility] Comment on above: Order Comment: Speci men Type: BLOOD SPECIMEN Ordering Facility: [facility] Address: [address] [place] [address] Performed By: #### 2 276-4, 56851-0, 2132-03, 2284-02 #### [facility] CLIA [id number] [address] [place] [address] [place] Immature granulocytes (Bld) [#/Vol] 10*3/uL Normal <0.10 [facility] Comment on above: Order Comment: Speci men Type: BLOOD SPECIMEN Ordering Facility: [facility] Address: [address] [place] [address] Performed By: #### 2 276-4, 25693-0, 2132-03, 2284-02 #### [facility] CLIA [id number] [address] [place] [address] [place] Immature granulocytes/100 WBC (Bld) 0.2 % Normal [facility] Comment on above: Order Comment: Speci men Type: BLOOD SPECIMEN Ordering Facility: [facility] Address: [address] [place] [address] Performed By: #### 2 276-4, 54699-8, 2132-03, 8 #### [facility] CLIA [id number] [address] [place] [address] [place] Lymphocytes (Bld) [#/Vol] 2.28 10*3/uL Normal 1.00-4.[address] [facility] Comment on above: Order Comment: Speci men Type: BLOOD SPECIMEN Ordering Facility: [facility] Address: [address] [place] [address] Performed By: #### 2 276-4, 65229-0, 9, 8 #### [facility] CLIA [id number] [address] [place] [address] [place] Lymphocytes/100 WBC (Bld) 45.8 % Normal [facility] Comment on above: Order Comment: Speci men Type: BLOOD SPECIMEN Ordering Facility: [facility] Address: [address] [place] [address] Performed By: #### 2 276-4, 40697-6, 9, 2284-02 #### [facility] CLIA [id number] [address] [place] [address] [place] MCH (RBC) [Entitic mass] 30.0 pg Normal 26.0-34.0 [facility] Comment on above: Order Comment: Speci men Type: BLOOD SPECIMEN Ordering Facility: [facility] Address: [address] [place] [address] Performed By: #### 2 276-4, 68852-2, 9, 8 #### [facility] CLIA [id number] [address] [place] [address] [place] MCHC (RBC) [Mass/Vol] 31.1 g/dL Normal 30.5-36.0 [facility] Comment on above: Order Comment: Speci men Type: BLOOD SPECIMEN Ordering Facility: [facility] Address: [address] [place] [address] Performed By: #### 2 276-4, 83381-9, 9, 8 #### [facility] CLIA [id number] [address] [place] [address] [place] MCV (RBC) [Entitic vol] 96.4 fL Normal 80.0-100.0 [facility] Comment on above: Order Comment: Speci men Type: BLOOD SPECIMEN Ordering Facility: [facility] Address: [address] [place] [address] Performed By: #### 2 276-4, 12797-1, 9, 2284-02 #### [facility] CLIA [id number] [address] [place] [address] [place] Monocytes (Bld) [#/Vol] 0.15 10*3/uL Normal <0.87 [facility] Comment on above: Order Comment: Speci men Type: BLOOD SPECIMEN Ordering Facility: [facility] Address: [address] [place] [address] Performed By: #### 2 276-4, 72106-8, 2132-03, 2284-02 #### [facility] CLIA [id number] [address] [place] [address] [place] Monocytes/100 WBC (Bld) 3.0 % Normal [facility] Comment on above: Order Comment: Speci men Type: BLOOD SPECIMEN Ordering Facility: [facility] Address: [address] [place] [address] Performed By: #### 2 276-4, 68865-9, 2132-03, 2284-02 #### [facility] CLIA [id number] [address] [place] [address] [place] Neutrophils (Bld) [#/Vol] 2.48 10*3/uL Normal 1.45-7.[address] [facility] Comment on above: Order Comment: Speci men Type: BLOOD SPECIMEN Ordering Facility: [facility] Address: [address] [place] [address] Performed By: #### 2 276-4, 16893-7, 9, 8 #### [facility] CLIA [id number] [address] [place] [address] [place] Neutrophils/100 WBC (Bld) 49.8 % Normal [facility] Comment on above: Order Comment: Speci men Type: BLOOD SPECIMEN Ordering Facility: [facility] Address: [address] [place] [address] Performed By: #### 2 276-4, 48142-9, 9, 8 #### [facility] CLIA [id number] [address] [place] [address] [place] Nucleated RBC (Bld) [#/Vol] 10*3/uL Normal <0.01 [facility] Comment on above: Order Comment: Speci men Type: BLOOD SPECIMEN Ordering Facility: [facility] Address: [address] [place] [address] Performed By: #### 2 276-4, 72081-8, 2132-03, 2284-02 #### [facility] CLIA [id number] [address] [place] [address] [place] Nucleated RBC/100 WBC (Bld) [Ratio] 0.0 /[address] [facility] Comment on above: Order Comment: Speci men Type: BLOOD SPECIMEN Ordering Facility: [facility] Address: [address] [place] [address] Performed By: #### 2 276-4, 84141-5, 2132-03, 2284-02 #### [facility] CLIA [id number] [address] [place] [address] [place] Platelet mean volume (Bld) [ Entitic vol] 9.8 fL Normal 9.0-12.7 [facility] Comment on above: Order Comment: Speci men Type: BLOOD SPECIMEN Ordering Facility: [facility] Address: [address] [place] [address] Performed By: #### 2 276-4, 98131-7, 9, 2284-02 #### [facility] CLIA [id number] [address] [place] [address] [place] Platelets (Bld) [#/Vol] 130 10*3/uL Low 150-400 [facility] Comment on above: Order Comment: Speci men Type: BLOOD SPECIMEN Ordering Facility: [facility] Address: [address] [place] [address] Performed By: #### 2 276-4, 04396-9, 2131-9, 2283-8 #### [facility] CLIA [id number] [address] [place] [address] [place] RBC (Bld) [#/Vol] 3.63 10*6/uL Low 3.90-5.20 [facility] Comment on above: Order Comment: Speci men Type: BLOOD SPECIMEN Ordering Facility: [facility] Address: [address] [place] [address] Performed By: #### 2 276-4, 33083-2, 2131-9, 2283-8 #### [facility] CLIA [id number] [address] [place] [address] [place] WBC (Bld) [#/Vol] 4.98 10*3/uL Normal 3.70-11.00 [facility] Comment on above: Order Comment: Speci men Type: BLOOD SPECIMEN Ordering Facility: [facility] Address: [address] [place] [address] Performed By: #### 2 276-4, 99736-2, 2131-9, 2283-8 #### [facility] CLIA [id number] [address] [place] [address] [place] CNOVSPon 09-15-2022 CNOVSP Visit (SP) Office (Jennifer QUISPE) ANDREI LEO ([id number]) 1950 F Date Time Provider Department 09/15/22 3:00 PM RINKU RAMSEY During your visit today, we recorded the following information about you: Temperature Pulse Respiration Blood pressure 97.1 degrees 75/minute 16/minute 158/89 Weight Height 86.4 kg 1.588 m Rinku Ramsey MD 09/20/2022 3:43 PM Signed NAME: Andrei Leo CLINIC NO.: [id number] DATE OF SERVICE: September 15, 2022 ([place]) Some elements in this clinic note that are critical to medical decision making have been carefully reviewed and included from a prior clinic note dated: August 04, 2021 ([place]) Additional Clinicians involved in Andrei Leo's care: Dr. Shay, Dr. eDluna CC: Chronic ITP ASSESSMENT/PLAN: 1. Thrombocytopenia (HCC) - ICD9: 287.5, ICD10: D69.6 (primary diagnosis) She has chronic ITP. She has repsonded to Rituxan in the past, most recently she was on Plaquenil (with a history of Lupus) and did not respond to this. Bone marrow biopsy September 13, 2019 showed unremarkable maturing trilineage hematopoiesis. Completed 4 weekly doses of Rituxan 11/2019 and platelet counts improved but still low. 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 - Continues to respond to Tavalisse started 05/2021. 2. Pulmonary nodules - ICD9: 793.19, ICD10: R91.8 : 12/31/2020 CT Chest stable. No new findings. 3. Lupus (HCC) - ICD9: 710.0, ICD10: M32.9: She is asymptomatic from Lupus of the skin. 4. 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 5. HTN - continue Losartan plus HCTZ and continue managing HTN. Improved control even on Tavalisse. 6. Read lesion - may need biopsy in future. PLAN: Continue Tavalisse 100 mg twice daily. (Actually takes 2 pills at the same time) Losartan was increased by nephrology. Taking Losartan 50 mg daily. Continue HCTZ. Follow up in 6 weeks with labs. Treatment to Date: . 05/14/2021 - Current: Tavalisse 4. 10/31/2019 - 11/21/2019: Weekly Rituxan x 4 3. 04/11/2019 Plaquenil which she stopped 2. January 2019 Prednisone 1. 2017 Rituxan X 4 HPI: Updated Visit, September 15, 2022: Andrei continues to do very well. Very busy with family life and issues. No new complaints. Updated Visit, August 04, 2022: Andrei Leo returns for follow-up. She remains on Tavalisse and is tolerating it well. She denies any bleeding or abnormal bruising. Since her last visit she had a colonoscopy and had polyps removed. She states that she was notified of the biopsy results which were negative. She is scheduled for a hearing test on 08/10/2022 and will then see ENT for follow-up on 08/30/2022. 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 Overall, she is doing well today with no new complaints. Updated Visit, June 23, 2022: Andrei is doing well on Tavalisse 100 mg BID. Plts 118. Right anterior read has a erythematous wide streak that throbs at night and is tender to touch. But it has been there for 6 months - 12/09/2021. I don't think this is an infection. She has edema in both legs. Will recommend trying Ice for 15 minutes at a time to see if she has some reduction in inflammation. It is possible that this is a manifestation of lupus. Will monitor. Consider a biopsy of skin if not resolved. Updated Visit, May 12, 2022: Andrei Leo returns for follow-up. She remains on Tavalisse 100 mg twice daily and is tolerating it well. There has been no significant medical changes since her last visit. She states that she is feeling okay. She states that she feels a sinus infection coming on. She noticed her right high becoming puffy which is a sign. She denies fevers and chills. No bleeding or abnormal bruising. She has a follow-up scheduled with nephrology in either June or July. She offers no new complaints today. No new issues, problems or concerns. Updated Visit, March 31, 2022: Andrei is 71 yo and returns in follow up for ITP currently controlled with fostamatinib. Seems to bruise more easily with blood draws. Labs are stable. Plts 119k, hgb 11.6 Tolerating Tavalisse without difficulty however, LFT will need to be monitored as they are slightly increased. Got back from [place] and saw her sisters and had a nice trip with her of 54 yrs. Updated Visit, February 11, 2022: Andrei Leo returns for scheduled follow-up. She remains on Tavalisse 100 mg twice daily and is tolerating it well. She denies any signs of bleeding or abnormal bruising. Also no signs of blood clots. She saw Dr. Gilson Troncoso today. She states that she was told she has protein in her urine. She will have her next follow-up with nephrology in 6 months. She is stil having issues with her sinu (more content not included)... Normal [facility] Comprehensive metabolic 2000 panelon 09-15-2022 Albumin [Mass/Vol] 3.8 g/dL Low 3.9-4.9 [facility] Comment on above: Order Comment: Speci willie Type: BLOOD SPECIMEN Ordering Facility: [facility] Address: [address] [place] [address] Performed By: #### 2 276-4, 07443-9, 2132-03, 2284-02 #### [facility] CLIA [id number] [address] [place] [address] [place] ALP [Catalytic activity/Vol] 71 U/L Normal 34-123 [facility] Comment on above: Order Comment: Virgilioi willie Type: BLOOD SPECIMEN Ordering Facility: [facility] Address: [address] [place] [address] Performed By: #### 2 276-4, 50228-8, 2132-03, 2284-02 #### [facility] CLIA [id number] [address] [address] [place] ALT [Catalytic activity/Vol] 43 U/L High 7-38 [facility] Comment on above: Order Comment: Speci men Type: BLOOD SPECIMEN Ordering Facility: [facility] Address: [address] [place] [address] Performed By: #### 2 276-4, 14431-2, 2132-03, 2284-02 #### [facility] CLIA [id number] [address] [place] [address] [place] Anion gap [Moles/Vol] 10 mmol/L Normal 9-18 [facility] Comment on above: Order Comment: Speci men Type: BLOOD SPECIMEN Ordering Facility: [facility] Address: [address] [place] [address] Performed By: #### 2 276-4, 69552-1, 2132-03, 2284-02 #### [facility] CLIA [id number] [address] [place] [address] [place] AST [Catalytic activity/Vol] 69 U/L High 13-35 [facility] Comment on above: Order Comment: Speci men Type: BLOOD SPECIMEN Ordering Facility: [facility] Address: [address] [place] [address] Performed By: #### 2 276-4, 65113-5, 2132-03, 2284-02 #### [facility] CLIA [id number] [address] [place] [address] [place] Bilirubin [Mass/Vol] 0.5 mg/dL Normal 0.2-1.3 [facility] Comment on above: Order Comment: Speci men Type: BLOOD SPECIMEN Ordering Facility: [facility] Address: [address] [place] [address] Performed By: #### 2 276-4, 85259-2, 2132-03, 2284-02 #### [facility] CLIA [id number] [address] [place], [place] [id number] [place] Calcium [Mass/Vol] 9.4 mg/dL Normal 8.5-10.2 [facility] Comment on above: Order Comment: Speci men Type: BLOOD SPECIMEN Ordering Facility: [facility] Address: [address] [place] [address] Performed By: #### 2 276-4, 34316-7, 2132-03, 2284-02 #### [facility] CLIA [id number] [address] [place] [address] [place] Chloride [Moles/Vol] 104 mmol/L Normal 97-105 [facility] Comment on above: Order Comment: Speci men Type: BLOOD SPECIMEN Ordering Facility: [facility] Address: [address] [place] [address] Performed By: #### 2 276-4, 18964-8, 2132-03, 2284-02 #### [facility] CLIA [id number] [address] [place] [address] [place] CO2 [Moles/Vol] 25 mmol/L Normal 22-30 [facility] Comment on above: Order Comment: Speci men Type: BLOOD SPECIMEN Ordering Facility: [facility] Address: [address] [place] [address] Performed By: #### 2 276-4, 02532-0, 2132-03, 2284-02 #### [facility] CLIA [id number] [address] [place] [address] [place] Creatinine [Mass/Vol] 0.87 mg/dL Normal 0.58-0.96 [facility] Comment on above: Order Comment: Speci men Type: BLOOD SPECIMEN Ordering Facility: [facility] Address: [address] [place] [address] Performed By: #### 2 276-4, 50429-5, 2132-03, 2284-02 #### [facility] CLIA [id number] [address] [place] [address] [place] ESTIMATED GLOMERULAR FILTRATION RATE 71 mL/min/1.73m??? Normal >=60 [facility] Comment on above: Order Comment: Speci men Type: BLOOD SPECIMEN Ordering Facility: [facility] Address: [address] [place] [address] Result Comment: Miryam mated Glomerular Filtration Rate (eGFR) is calculated using the 2020 CKD-EPI creatinine equation. This equation utilizes serum creatinine, sex, and age as parameters. The creatinine assay has traceable calibration to isotope dilution-mass spectrometry. Refer to KDIGO guidelines for clinical interpretation. In patients with unstable renal function, e.g. those with acute kidney injury, the eGFR may not accurately reflect actual GFR. Performed By: #### 2 276-4, 26789-3, 2132-03, 2284-02 #### [facility] CLIA [id number] [address] [place] [address] [place] Glucose [Mass/Vol] 153 mg/dL High 74-99 [facility] Comment on above: Order Comment: Fabricio tapia Type: BLOOD SPECIMEN Ordering Facility: [facility] Address: [address] [place] [address] Result Comment: The [place] Diabetes Association (ADA) provides guidance for cutoff values for fasting glucose and random glucose. The ADA defines fasting as no caloric intake for at least 8 hours. Fasting plasma glucose results between 100 to 125 mg/dL indicate increased risk for diabetes (prediabetes). Fasting plasma glucose results greater than or equal to 126 mg/dL meet the criteria for diagnosis of diabetes. In the absence of unequivocal hyperglycemia, results should be confirmed by repeat testing. In a patient with classic symptoms of hyperglycemia or hyperglycemic crisis, random plasma glucose results greater than or equal to 200 mg/dL meet the criteria for diagnosis of diabetes. Reference: Standards of Medical Care in Diabetes 2016, [place] [employer]. Diabetes Care. 2016.39(Suppl 1). Performed By: #### 2 276-4, 00252-0, 2132-03, 2284-02 #### [facility] CLIA [id number] [address] [place] [id number] [place] Potassium [Moles/Vol] 3.7 mmol/L Normal 3.7-5.1 [facility] Comment on above: Order Comment: Fabricio tapia Type: BLOOD SPECIMEN Ordering Facility: [facility] Address: [address] [place] [id number] Performed By: #### 2 276-4, 75647-0, 9, 8 #### [facility] CLIA [id number] [address] [place] [address] [place] Protein [Mass/Vol] 7.5 g/dL Normal 6.3-8.0 [facility] Comment on above: Order Comment: Speci men Type: BLOOD SPECIMEN Ordering Facility: [facility] Address: [address] [place] [id number] Performed By: #### 2 276-4, 08592-7, 9, 2284-02 #### [facility] CLIA [id number] [address] [place] [address] [place] Sodium [Moles/Vol] 139 mmol/L Normal 136-144 [facility] Comment on above: Order Comment: Speci men Type: BLOOD SPECIMEN Ordering Facility: [facility] Address: [address] [place] [id number] Performed By: #### 2 276-4, 77377-7, 9, 2284-02 #### [facility] CLIA [id number] [address] [place] [address] [place] Urea nitrogen [Mass/Vol] 26 mg/dL High 7-21 [facility] Comment on above: Order Comment: Speci men Type: BLOOD SPECIMEN Ordering Facility: [facility] Address: [address] [place] [address] Performed By: #### 2 276-4, 31510-8, 9, 2284-02 #### [facility] CLIA [id number] [address] [place], [place] [id number] [place] Albumin [Mass/volume] in Ser um or PlasmaOrdered By: Gilson Sarah on 08-29-2022 Albumin [Mass/Vol] 3.2 g/dL 3.2-5.5 [facility] Automated erythrocytes count in urine sediment (number/area)Ordered By: Gilson Sarah on 08-29-2022 RBC Auto (Urine sed) [#/Area] 1-2 [HPF] 0-4 [facility] Automated leukocytes count i n urine sediment (number/area)Ordered By: Gilson Sarah on 08-29-2022 WBC Auto (Urine sed) [#/Area] 0-1 [HPF] 0-4 [facility] Bilirubin Test strip Ql (U)O rdered By: Gilson Sarah on 08-29-2022 Bilirubin Ql (U) Negative Negative [facility] Color Auto (U)Ordered By: Ab christiano Sarah on 08-29-2022 Color (U) Yellow Yellow [facility] Creatinine [Mass/volume] in UrineOrdered By: Gilson Sarah on 08-29-2022 Creatinine (U) [Mass/Vol] 94.2 mg/dL [facility] Comment on above: No reference range e stablished Creatinine and Glomerular fi ltration rate.predicted panel (S/P/Bld)Ordered By: Gilson Sarah on 08-29-2022 Creatinine [Mass/Vol] 0.80 mg/dL 0.44-1.03 [facility] Dipstick and Microscopicon 0 08-29-2022 Appearance (U) Clear Normal Clear [facility] Comment on above: Order Comment: Reaso n for Exam HTN (hypertension);Lupus;Chronic ITP (idiopathic thrombocyto Name Collection Type:: Clean-Voided Midstream Performed By: #### A DDONUAPLUS #### [facility] [address] [place] [address] [place] Bacteria,Urine None Seen Normal None Seen [facility] Comment on above: Order Comment: Reaso n for Exam HTN (hypertension);Lupus;Chronic ITP (idiopathic thrombocyto Name Collection Type:: Clean-Voided Midstream Performed By: #### A DDONUAPLUS #### [facility] [address] [place] [address] [place] Bilirubin,Urine Negative Normal Negative [facility] Comment on above: Order Comment: Reaso n for Exam HTN (hypertension);Lupus;Chronic ITP (idiopathic thrombocyto Name Collection Type:: Clean-Voided Midstream Performed By: #### A DDONUAPLUS #### [place] [address] [place] Color (U) Yellow Normal Yellow [facility] Comment on above: Order Comment: Reaso n for Exam HTN (hypertension);Lupus;Chronic ITP (idiopathic thrombocyto Name Collection Type:: Clean-Voided Midstream Performed By: #### A DDONUAPLUS #### [place] [address] [place] Glucose Ql (U) Normal Normal Normal [facility] Comment on above: Order Comment: Reaso n for Exam HTN (hypertension);Lupus;Chronic ITP (idiopathic thrombocyto Name Collection Type:: Clean-Voided Midstream Performed By: #### A DDONUAPLUS #### [place] [address] [place] Hyaline Casts,Urine 0-8 Normal 0-8 [facility] Comment on above: Order Comment: Reaso n for Exam HTN (hypertension);Lupus;Chronic ITP (idiopathic thrombocyto Name Collection Type:: Clean-Voided Midstream Result Comment: PERF ORMED BY: [place] [address] PATHOLOGIST TRIPLE VAL[employer] MECHANIC IVORY BORRERO M.D. Performed By: #### A DDONUAPLUS #### [place] [address] [place] Ketones Ql (U) Negative Normal Negative [facility] Comment on above: Order Comment: Reaso n for Exam HTN (hypertension);Lupus;Chronic ITP (idiopathic thrombocyto Name Collection Type:: Clean-Voided Midstream Performed By: #### A DDONUAPLUS #### [place] [address] [place] Leukocyte esterase Test stri p Ql (U) Negative Normal Negative [facility] Comment on above: Order Comment: Reaso n for Exam HTN (hypertension);Lupus;Chronic ITP (idiopathic thrombocyto Name Collection Type:: Clean-Voided Midstream Performed By: #### A DDONUAPLUS #### [place] [address] [place] Nitrite,Urine Negative Normal Negative [facility] Comment on above: Order Comment: Reaso n for Exam HTN (hypertension);Lupus;Chronic ITP (idiopathic thrombocyto Name Collection Type:: Clean-Voided Midstream Performed By: #### A DDONUAPLUS #### [facility] [address] [place] [address] [place] Occult Blood,Urine Negative Normal Negative [facility] Comment on above: Order Comment: Reaso n for Exam HTN (hypertension);Lupus;Chronic ITP (idiopathic thrombocyto Name Collection Type:: Clean-Voided Midstream Performed By: #### A DDONUAPLUS #### [address] pH (U) 6.5 [pH] Normal 5.0-9.0 [facility] Comment on above: Order Comment: Reaso n for Exam HTN (hypertension);Lupus;Chronic ITP (idiopathic thrombocyto Name Collection Type:: Clean-Voided Midstream Performed By: #### A DDONUAPLUS #### [place] [address] [place] Protein,Urine Negative Normal Negative [facility] Comment on above: Order Comment: Reaso n for Exam HTN (hypertension);Lupus;Chronic ITP (idiopathic thrombocyto Name Collection Type:: Clean-Voided Midstream Performed By: #### A DDONUAPLUS #### [facility] [address] [place] [address] [place] RBC,Urine 1-2 Normal 0-4 [facility] Comment on above: Order Comment: Reaso n for Exam HTN (hypertension);Lupus;Chronic ITP (idiopathic thrombocyto Name Collection Type:: Clean-Voided Midstream Performed By: #### A DDONUAPLUS #### [facility] [address] [place] [address] [place] Specificy [place],Urine 1.015 Normal 1.001-1.030 [facility] Comment on above: Order Comment: Reaso n for Exam HTN (hypertension);Lupus;Chronic ITP (idiopathic thrombocyto Name Collection Type:: Clean-Voided Midstream Performed By: #### A DDONUAPLUS #### [facility] [address] Squamous Epithelial Cell,Urine 3-4 High 0-2 [facility] Comment on above: Order Comment: Reaso n for Exam HTN (hypertension);Lupus;Chronic ITP (idiopathic thrombocyto Name Collection Type:: Clean-Voided Midstream Performed By: #### A DDONUAPLUS #### [facility] [address] Urobilinogen,Urine Normal Normal Normal [facility] Comment on above: Order Comment: Reaso n for Exam HTN (hypertension);Lupus;Chronic ITP (idiopathic thrombocyto Name Collection Type:: Clean-Voided Midstream Performed By: #### A DDONUAPLUS #### [facility] [address] [place] [address] WBC LM.HPF (Urine sed) [#/Area] 0 /[HPF] Normal 0-4 [facility] Comment on above: Order Comment: Reaso n for Exam HTN (hypertension);Lupus;Chronic ITP (idiopathic thrombocyto Name Collection Type:: Clean-Voided Midstream Performed By: #### A DDONUAPLUS #### [facility] [address] [place] [address] Erythrocyte distribution wid th Auto (RBC) [Ratio]Ordered By: Gilson Sarah on 08-29-2022 Erythrocyte distribution wid th (RBC) [Ratio] 14.9 % 11.9-15.3 [facility] Estimated glomerular filtrat ion rate (GFR) non- AmericanOrdered By: Gilson Sarah on 08-29-2022 GFR/1.73 sq M.predicted dave g non-blacks MDRD (S/P/Bld) [Vol rate/Area] > 60 mL/Min [facility] Hematocrit Auto (Bld) [Volum e fraction]Ordered By: Gilson Sarah on 08-29-2022 Hematocrit (Bld) [Volume fraction] 34.9 % 3 4.0-46.4 [facility] Hemoglobin [Mass/volume] in BloodOrdered By: Gilson Sarah on 08-29-2022 Hemoglobin (Bld) [Mass/Vol] 11.2 g/dL 11.8-15. 4 [facility] Hemogram CBC Without Diffon 08-29-2022 Erythrocyte distribution wid th (RBC) [Ratio] 14.9 % Normal 11.9-15.3 [facility] Comment on above: Order Comment: Reaso n for Exam HTN (hypertension);Lupus;Chronic ITP (idiopathic thrombocyto Performed By: #### C BCNO #### [facility] [address] Hematocrit (Bld) [Volume fraction] 34.9 % Normal 34.0-46.4 [facility] Comment on above: Order Comment: Reaso n for Exam HTN (hypertension);Lupus;Chronic ITP (idiopathic thrombocyto Performed By: #### C BCNO #### [address] Hemoglobin (Bld) [Mass/Vol] 11.2 g/dL Low 11.8-15. 4 [facility] Comment on above: Order Comment: Reaso n for Exam HTN (hypertension);Lupus;Chronic ITP (idiopathic thrombocyto Performed By: #### C BCNO #### [address] MCH (RBC) [Entitic mass] 29.5 pg Normal 24.7-34.3 [facility] Comment on above: Order Comment: Reaso n for Exam HTN (hypertension);Lupus;Chronic ITP (idiopathic thrombocyto Performed By: #### C BCNO #### [address] MCV (RBC) [Entitic vol] 92.0 fL Normal 80-100 [facility] Comment on above: Order Comment: Reaso n for Exam HTN (hypertension);Lupus;Chronic ITP (idiopathic thrombocyto Performed By: #### C BCNO #### [address] Mean Corpuscular HGB Conc 32.1 g/dL Normal 32.0-35.0 [facility] Comment on above: Order Comment: Reaso n for Exam HTN (hypertension);Lupus;Chronic ITP (idiopathic thrombocyto Performed By: #### C BCNO #### [address] Platelet mean volume (Bld) [Entitic vol] 8.4 fL Normal 6.3-10.7 [facility] Comment on above: Order Comment: Reaso n for Exam HTN (hypertension);Lupus;Chronic ITP (idiopathic thrombocyto Result Comment: PERF ORMED BY: [place] [address] PATHOLOGIST [employer] MECHANIC IVORY BORRERO M.D. Performed By: #### C BCNO #### [address] Platelets (Bld) [#/Vol] 124 10*3/uL Low 150-450 [facility] Comment on above: Order Comment: Reaso n for Exam HTN (hypertension);Lupus;Chronic ITP (idiopathic thrombocyto Performed By: #### C BCNO #### [address] RBC (Bld) [#/Vol] 3.79 10*6/uL Normal 3.60-5.00 [facility] Comment on above: Order Comment: Reaso n for Exam HTN (hypertension);Lupus;Chronic ITP (idiopathic thrombocyto Performed By: #### C BCNO #### [address] WBC (Bld) [#/Vol] 4.3 10*3/uL Normal 3.8-11.6 [facility] Comment on above: Order Comment: Reaso n for Exam HTN (hypertension);Lupus;Chronic ITP (idiopathic thrombocyto Performed By: #### C BCNO #### [address] Ketones Auto test strip (U) [Mass/Vol]Ordered By: Gilson Sarah on 08-29-2022 Ketones (U) [Mass/Vol] Negative Negative [facility] - Chemistry and C hemistry - challengeOrdered By: Gilson Sarah on 08-29-2022 Magnesium [Mass/Vol] 2.1 mg/dL 1.6-2.6 [facility] - UrinalysisOrder ed By: Gilson Sarah on 08-29-2022 Hyaline casts LM Ql (Urine sed) 0-8 [LPF] 0-8 [facility] Leukocytes [#/volume] correc austin for nucleated erythrocytes in Blood by Automated counOrdered By: Gilson Sarah on 08-29-2022 WBC corrected for nucl RBC A uto (Bld) [#/Vol] 4.3 10*3/uL 3.8-11.6 [facility] MCH Auto (RBC) [Entitic mass ]Ordered By: Gilson Sarah on 08-29-2022 MCH (RBC) [Entitic mass] 29.5 pg 24.7-34.3 [facility] MCHC Auto (RBC) [Mass/Vol]Or dered By: Gilson Sarah on 08-29-2022 MCHC (RBC) [Mass/Vol] 32.1 g/dL 32.0-35.0 [facility] MCV Auto (RBC) [Entitic vol] Ordered By: Gilson Sarah on 08-29-2022 MCV (RBC) [Entitic vol] 92.0 fL 80-100 F [facility] Magnesiumon 08-29-2022 Magnesium [Mass/Vol] 2.1 mg/dL Normal 1.6-2.6 [facility] Comment on above: Order Comment: Reaso n for Exam HTN (hypertension);Lupus;Chronic ITP (idiopathic thrombocyto Result Comment: PERF ORMED BY: [facility] [address] [place] [address] PATHOLOGIST [employer] MECHANIC IVORY BORRERO M.D. Performed By: #### M G, RENAL #### [address] Nitrite Test strip Ql (U)Ord ered By: Gilson Sarah on 08-29-2022 Nitrite Ql (U) Negative Negative [facility] No Panel InformationOrdered By: Gilson Sarah on 08-29-2022 Estimated GFR () > 60 mL/Min [facility] Comment on above: GFR estimated refere nce range: According to KDOQI guidelines, <60 ml/min/1.73m2 is sufficient to diagnose a patient with chronic kidney disease. Pharmacy Creatinine Clearance (Chem N/A [facility] Phosphate [Mass/volume] in S henok or PlasmaOrdered By: Gilson Sarah on 08-29-2022 Phosphate [Mass/Vol] 3.1 mg/dL 2.5-4.6 [facility] Platelet mean volume Auto (B ld) [Entitic vol]Ordered By: Gilson Sarah on 08-29-2022 Platelet mean volume (Bld) [Entitic vol] 8.4 fL 6.3-10.7 [facility] Platelets Auto (Bld) [#/Vol] Ordered By: Gilson Sarah on 08-29-2022 Platelets (Bld) [#/Vol] 124 10*3/uL 150-450 [facility] Protein Auto test strip (U) [Mass/Vol]Ordered By: Gilson Sarah on 08-29-2022 Protein (U) [Mass/Vol] Negative Negative [facility] Protein Creat Ratio Ur Rando mon 08-29-2022 Creatinine, Urine (Random) 94.2 mg/dL Normal [facility] Comment on above: Order Comment: Reaso n for Exam HTN (hypertension);Lupus;Chronic ITP (idiopathic thrombocyto Result Comment: No r eference range established Performed By: #### P ROCRERAT #### [facility] [address] Protein (U) [Mass/Vol] 9 mg/dL Normal 0-9 [facility] Comment on above: Order Comment: Reaso n for Exam HTN (hypertension);Lupus;Chronic ITP (idiopathic thrombocyto Performed By: #### P ROCRERAT #### [facility] [address] Urine Protein/Creatinine Ratio 96 mg/g{Cre} Normal 0-2 00 [facility] Comment on above: Order Comment: Reaso n for Exam HTN (hypertension);Lupus;Chronic ITP (idiopathic thrombocyto Result Comment: PERF ORMED BY: [facility] [address] [place] [address] PATHOLOGIST [employer] MECHANIC IVORY BORRERO M.D. Performed By: #### P ROCRERAT #### [facility] [address] [place] [id number] [place] Protein [Mass/volume] in Uri neOrdered By: Gilson Johnsonr on 08-29-2022 Protein (U) [Mass/Vol] 9 mg/dL 0-9 [facility] RBC Auto (Bld) [#/Vol]Ordere d By: Gilson Tyrel on 08-29-2022 RBC (Bld) [#/Vol] 3.79 10*6/uL 3.60-5.00 [facility] Renal Function Panelon 08-29 Albumin [Mass/Vol] 3.2 g/dL Normal 3.2-5.5 [facility] Comment on above: Order Comment: Reaso n for Exam HTN (hypertension);Lupus;Chronic ITP (idiopathic thrombocyto Performed By: #### M G, RENAL #### [facility] [address] [place] [id number] [place] Anion gap [Moles/Vol] 10.9 mmol/L Normal 6.0-15.0 [facility] Comment on above: Order Comment: Reaso n for Exam HTN (hypertension);Lupus;Chronic ITP (idiopathic thrombocyto Performed By: #### M G, RENAL #### [facility] [address] [place] [address] [place] Calcium [Mass/Vol] 8.8 mg/dL Normal 8.2-10.2 [facility] Comment on above: Order Comment: Reaso n for Exam HTN (hypertension);Lupus;Chronic ITP (idiopathic thrombocyto Performed By: #### M G, RENAL #### [facility] [address] [place] [id number] [place] Chloride [Moles/Vol] 99 mmol/L Normal 95-114 [facility] Comment on above: Order Comment: Reaso n for Exam HTN (hypertension);Lupus;Chronic ITP (idiopathic thrombocyto Performed By: #### M G, RENAL #### [facility] [address] [place] [id number] [place] CO2 [Moles/Vol] 28.0 mmol/L Normal 22.0-30.0 [facility] Comment on above: Order Comment: Reaso n for Exam HTN (hypertension);Lupus;Chronic ITP (idiopathic thrombocyto Performed By: #### M G, RENAL #### [facility] [address] [place] [address] [facility] Creatinine [Mass/Vol] 0.80 mg/dL Normal 0.44-1.03 [facility] Comment on above: Order Comment: Reaso n for Exam HTN (hypertension);Lupus;Chronic ITP (idiopathic thrombocyto Performed By: #### M G, RENAL #### [facility] [address] [place] [address] [place] Estimated GFR ( Chelsi > 60 [facility] Comment on above: Order Comment: Reaso n for Exam HTN (hypertension);Lupus;Chronic ITP (idiopathic thrombocyto Result Comment: GFR estimated reference range: According to KDOQI guidelines, <60 ml/min/1.73m2 is sufficient to diagnose a patient with chronic kidney disease. Performed By: #### M G, RENAL #### [facility] [address] [place] [address] [place] Estimated GFR (Non- Am > 60 [facility] Comment on above: Order Comment: Reaso n for Exam HTN (hypertension);Lupus;Chronic ITP (idiopathic thrombocyto Performed By: #### M G, RENAL #### [facility] [address] [place] [address] [place] Glucose [Mass/Vol] 89 mg/dL Normal 70-100 [facility] Comment on above: Order Comment: Reaso n for Exam HTN (hypertension);Lupus;Chronic ITP (idiopathic thrombocyto Result Comment: [place] om Glucose Reference Range is dependent on time and content of last meal. Glucose of more than 200 mg/dL in a nonstressed, ambulatory subject supports the diagnosis of Diabetes Mellitus. ADA recommended reference range Performed By: #### M G, RENAL #### [facility] [address] [place] [address] [facility] Phosphate [Mass/Vol] 3.1 mg/dL Normal 2.5-4.6 [facility] Comment on above: Order Comment: Reaso n for Exam HTN (hypertension);Lupus;Chronic ITP (idiopathic thrombocyto Performed By: #### M G, RENAL #### [facility] [address] [place] [id number] [place] Potassium [Moles/Vol] 3.9 mmol/L Normal 3.5-5.1 [facility] Comment on above: Order Comment: Reaso n for Exam HTN (hypertension);Lupus;Chronic ITP (idiopathic thrombocyto Performed By: #### M G, RENAL #### [facility] [address] [place] [address] [place] Sodium [Moles/Vol] 134 mmol/L Low 136-146 [facility] Comment on above: Order Comment: Reaso n for Exam HTN (hypertension);Lupus;Chronic ITP (idiopathic thrombocyto Performed By: #### M G, RENAL #### [facility] [address] [place] [address] [place] Urea nitrogen [Mass/Vol] 19 mg/dL Normal 9-23 [facility] Comment on above: Order Comment: Reaso n for Exam HTN (hypertension);Lupus;Chronic ITP (idiopathic thrombocyto Performed By: #### M G, RENAL #### [facility] [address] [place] [id number] [facility] Serum or plasma anion gap de terminationOrdered By: Gilson Sarah on 08-29-2022 Anion gap [Moles/Vol] 10.9 mmol/L 6.0-15.0 [facility] Serum or plasma calcium ramya urement (mass/volume)Ordered By: Gilson Sarah on 08-29-2022 Calcium [Mass/Vol] 8.8 mg/dL 8.2-10.2 [facility] Serum or plasma chloride brandy surement (moles/volume)Ordered By: Gilson Sarah on 08-29-2022 Chloride [Moles/Vol] 99 mmol/L 95-114 [facility] Serum or plasma glucose ramya urement (mass/volume)Ordered By: Gilson Sarah on 08-29-2022 Glucose [Mass/Vol] 89 mg/dL 70-100 [facility] Comment on above: ADA recommended refe rence rangeRandom Glucose Reference Range is dependent on time and content of last meal. Glucose of more than 200 mg/dL in a nonstressed, ambulatory subject supports the diagnosis of Diabetes Mellitus. Serum or plasma potassium me asurement (moles/volume)Ordered By: Gilson Sarah on 08-29-2022 Potassium [Moles/Vol] 3.9 mmol/L 3.5-5.1 [facility] Serum or plasma sodium measu rement (moles/volume)Ordered By: Gilson Sarah on 08-29-2022 Sodium [Moles/Vol] 134 mmol/L 136-146 [facility] Serum or plasma total carbon dioxide measurement (moles/volume)Ordered By: Gilson Sarah on 08-29-2022 CO2 [Moles/Vol] 28.0 mmol/L 22.0-30.0 [facility] Serum or plasma urea nitroge n measurement (mass/volume)Ordered By: Gilson Sarah on 08-29-2022 Urea nitrogen [Mass/Vol] 19 mg/dL - [facility] Specific gravity Auto test s trip (U) [Rel density]Ordered By: Gilson Sarah on 08-29-2022 Specific gravity (U) [Rel density] 1.015 1.001-1.030 [facility] Squamous epithelial cells de tection in urine sediment by light microscopyOrdered By: Gilson Sarah on 08-29-2022 Epithelial cells.squamous LM Ql (Urine sed) 3-4 [HPF] 0-2 [facility] US renal BIon 08-29-2022 US renal BI [facility] [place] [place] [address] Ultrasound Report Signed Patient: Andrei Leo MR#: [id number] : 1950 Acct:[id number] Age/Sex: 71 / F ADM Date: 08/29/22 Loc: UL Room: Type: [facility] Attending Dr: Gilson Sarah MD Ordering Provider: Gilson Sarah MD Date of Service: 08/29/22 US/US renal BI: HTN (hypertension);Lupus;Chronic ITP (idiopathic thrombocyto Copies to: Gilson Sarah MD BILATERAL RENAL AND BLADDER ULTRASOUND CLINICAL HISTORY: Lupus, ITP. Hypertension COMPARISON: None Estimation of renal size is approximately 10.32 cm on the right and 9.96 cm on the left. No contour deforming mass, shadowing stone or hydronephrosis. Cystic changes involving both kidneys, largest measuring 2.2 cm. The urinary bladder is partially distended with a volume of 24.79 ml. No shadowing stone or focal lesion. US/US renal BI IMPRESSION: No acute findings. Impression dictated by: Anastacio Cruz Jr., D.O.08/29/2022 2:20 PM Dictation Location: [place] [address] Tech: Kamille Camacho Transcribed By: ERIC 08/29/22 1420 Dictated By: Anastacio Cruz Jr, DO 08/29/22 1413 Signed By: 08/29/22 1420 Normal [facility] Urine bacteria detection by automated methodOrdered By: Gilson Sarah on 08-29-2022 Bacteria Auto Ql (U) None seen None Seen [facility] Urine clarity by refractomet ry automatedOrdered By: Gilson Sarah on 08-29-2022 Clarity Refractometry automated (U) Clear Clear [facility] Urine glucose measurement by automated test strip (mass/volume)Ordered By: Gilson Sarah on 08-29-2022 Glucose Auto test strip (U) [Mass/Vol] Normal mg/dL Normal [facility] Urine hemoglobin detection b y automated test stripOrdered By: Gilson Sarah on 08-29-2022 Hemoglobin Auto test strip Ql (U) Negative Ne gative [facility] Urine leukocyte esterase det ection by automated test stripOrdered By: Gilson Sarah on 08-29-2022 Leukocyte esterase Auto test strip Ql (U) Negative Negative [facility] Urine protein/creatinine rat ioOrdered By: Gilson Sarah on 08-29-2022 Protein/Creatinine (U) [Ratio] 96 mg/g{Cre} 0-2 00 [facility] Urobilinogen Auto test strip (U) [Mass/Vol]Ordered By: Gilson Sarah on 08-29-2022 Urobilinogen (U) [Mass/Vol] Normal mg/dL Normal [facility] pH Auto test strip (U)Ordere d By: Gilson Sarah on 08-29-2022 pH (U) 6.5 [pH] 5.0-9.0 [facility] RAAD BY IFA SCREENon 08-04-19 RAAD PATTERN Nuclear homogenous Normal [facility] Comment on above: Order Comment: Speci men Type: BLOOD SPECIMEN Ordering Facility: [facility] Address: [address] [place] [address] Performed By: #### 2 276-4, 22948-7, 9, 2284-02 #### [facility] CLIA [id number] [address] [place] [address] [place] RAAD PATTERN 2 Nuclear coarse speckled Normal [facility] Comment on above: Order Comment: Speci men Type: BLOOD SPECIMEN Ordering Facility: [facility] Address: [address] [place] [address] Performed By: #### 2 276-4, 51634-8, 9, 2284-02 #### [facility] CLIA [id number] [address] [place] [address] [place] RAAD TITER 1:[address] [facility] Comment on above: Order Comment: Speci men Type: BLOOD SPECIMEN Ordering Facility: [facility] Address: [address] [place] [address] Performed By: #### 2 276-4, 13023-2, 9, 8 #### [facility] CLIA [id number] [address] [place], [place] [id number] [place] RAAD TITER 2 1:1280 Normal [facility] Comment on above: Order Comment: Speci men Type: BLOOD SPECIMEN Ordering Facility: [facility] Address: [address] [place] [address] Performed By: #### 2 276-4, 69502-0, 9, 8 #### [facility] CLIA [id number] [address] [place] [address] [place] Nuclear Ab IF (S) [Titer] Positive Abnormal Negative [facility] Comment on above: Order Comment: Fabricio tapia Type: BLOOD SPECIMEN Ordering Facility: [facility] Address: [address] [place] [address] Result Comment: Anti -nuclear antibody test is used as an aid in diagnosis of systemic autoimmune diseases. Where positive and clinically warranted, follow-up using disease-specific testing is recommended. Low positive titers are not uncommon with advanced age, certain chronic infections, and malignancies among others. Test methodology: Indirect fluorescence immunoassay (IFA) using HEp-2 cells. Performed By: #### 2 276-4, 19664-0, 2132-03, 2284-02 #### [facility] CLIA [id number] [address] [place] [address] [place] CBC W Auto Differential pane l (Bld)on 08-04-2022 Basophils (Bld) [#/Vol] 10*3/uL Normal <[facility].11 [facility] Comment on [facility]: Order Comment: Fabricio tapia Type: BLOOD SPECIMEN Ordering Facility: [facility] Address: [address] [place] [address] Performed By: #### 2 276-4, 28783-9, 2132-03, 2284-02 #### [facility] CLIA [id number] [address] [place] [address] [place] Basophils/100 WBC (Bld) 0.4 % Normal [facility] Comment on above: Order Comment: Fabricio tapia Type: BLOOD SPECIMEN Ordering Facility: [facility] Address: [address] [place] [address] Performed By: #### 2 276-4, 27781-1, 2132-03, 2284-02 #### [facility] CLIA [id number] [address] [place] [address] [place] Differential cell count method Nom (Bld) Auto Normal [facility] Comment on above: Order Comment: Speci men Type: BLOOD SPECIMEN Ordering Facility: [facility] Address: [address] [place] [address] Performed By: #### 2 276-4, 02226-8, 2132-03, 2284-02 #### [facility] CLIA [id number] [address] [place] [address] [place] Eosinophils (Bld) [#/Vol] 0.05 10*3/uL Normal <0.46 [facility] Comment on above: Order Comment: Speci men Type: BLOOD SPECIMEN Ordering Facility: [facility] Address: [address] [place] [address] Performed By: #### 2 276-4, 15271-2, 2132-03, 2284-02 #### [facility] CLIA [id number] [address] [place] [address] [place] Eosinophils/100 WBC (Bld) 0.9 % Normal [facility] Comment on above: Order Comment: Speci men Type: BLOOD SPECIMEN Ordering Facility: [facility] Address: [address] [place], [place] [address] Performed By: #### 2 276-4, 34998-5, 2132-03, 2284-02 #### [facility] CLIA [id number] [address] [place] [address] [place] Erythrocyte distribution wid th (RBC) [Ratio] 14.3 % Normal 11.5-15.0 [facility] Comment on above: Order Comment: Speci men Type: BLOOD SPECIMEN Ordering Facility: [facility] Address: [address] [place] [address] Performed By: #### 2 276-4, 34395-8, 2132-03, 2284-02 #### [facility] CLIA [id number] [address] [place] [address] [place] Hematocrit (Bld) [Volume fraction] 36.7 % Normal 3 6.0-46.0 [facility] Comment on above: Order Comment: Speci men Type: BLOOD SPECIMEN Ordering Facility: [facility] Address: [address] [place] [address] Performed By: #### 2 276-4, 87422-4, 2132-03, 2284-02 #### [facility] CLIA [id number] [address] [address] [place] Hemoglobin (Bld) [Mass/Vol] 11.6 g/dL Normal 11.5-15. 5 [facility] Comment on above: Order Comment: Speci men Type: BLOOD SPECIMEN Ordering Facility: [facility] Address: [address] [place] [address] Performed By: #### 2 276-4, 46002-7, 2132-03, 2284-02 #### [facility] CLIA [id number] [address] [place] [address] [place] Immature granulocytes (Bld) [#/Vol] 10*3/uL Normal <0.10 [facility] Comment on above: Order Comment: Speci men Type: BLOOD SPECIMEN Ordering Facility: [facility] Address: [address] [place] [address] Performed By: #### 2 276-4, 17292-3, 2132-03, 2284-02 #### [facility] CLIA [id number] [address] [place] [address] [place] Immature granulocytes/100 WBC (Bld) 0.2 % Normal [facility] Comment on above: Order Comment: Speci men Type: BLOOD SPECIMEN Ordering Facility: [facility] Address: [address] [place] [address] Performed By: #### 2 276-4, 45601-2, 2132-03, 2284-02 #### [facility] CLIA [id number] [address] [place] [address] [place] Lymphocytes (Bld) [#/Vol] 2.76 10*3/uL Normal 1.00-4.[address] [facility] Comment on above: Order Comment: Speci men Type: BLOOD SPECIMEN Ordering Facility: [facility] Address: [address] [place] [address] Performed By: #### 2 276-4, 50033-3, 2132-03, 2284-02 #### [facility] CLIA [id number] [address] [place] [address] [place] Lymphocytes/100 WBC (Bld) 48.9 % Normal [facility] Comment on above: Order Comment: Speci men Type: BLOOD SPECIMEN Ordering Facility: [facility] Address: [address] [place] [address] Performed By: #### 2 276-4, 18666-9, 2132-03, 2284-02 #### [facility] CLIA [id number] [address] [place] [address] [place] MCH (RBC) [Entitic mass] 30.0 pg Normal 26.0-34.0 [facility] Comment on above: Order Comment: Speci men Type: BLOOD SPECIMEN Ordering Facility: [facility] Address: [address] [place] [address] Performed By: #### 2 276-4, 86426-5, 2132-03, 2284-02 #### [facility] CLIA [id number] [address] [place] [address] [place] MCHC (RBC) [Mass/Vol] 31.6 g/dL Normal 30.5-36.0 [facility] Comment on above: Order Comment: Speci men Type: BLOOD SPECIMEN Ordering Facility: [facility] Address: [address] [place] [address] Performed By: #### 2 276-4, 69692-3, 2132-03, 2284-02 #### [facility] CLIA [id number] [address] [place] [address] [place] MCV (RBC) [Entitic vol] 94.8 fL Normal 80.0-100.0 [facility] Comment on above: Order Comment: Speci men Type: BLOOD SPECIMEN Ordering Facility: [facility] Address: [address] [place] [address] Performed By: #### 2 276-4, 13337-0, 2132-03, 2284-02 #### [facility] CLIA [id number] [address] [place] [address] [place] Monocytes (Bld) [#/Vol] 0.23 10*3/uL Normal <0.87 [facility] Comment on above: Order Comment: Speci men Type: BLOOD SPECIMEN Ordering Facility: [facility] Address: [address] [place] [address] Performed By: #### 2 276-4, 45034-6, 2132-03, 2284-02 #### [facility] CLIA [id number] [address] [place] [address] [place] Monocytes/100 WBC (Bld) 4.1 % Normal C [facility] Comment on above: Order Comment: Speci men Type: BLOOD SPECIMEN Ordering Facility: [facility] Address: [address] [place] [address] Performed By: #### 2 276-4, 32659-2, 2132-03, 2284-02 #### [facility] CLIA [id number] [address] [place] [address] [place] Neutrophils (Bld) [#/Vol] 2.57 10*3/uL Normal 1.45-7.[address] [facility] Comment on above: Order Comment: Speci men Type: BLOOD SPECIMEN Ordering Facility: [facility] Address: [address] [place] [address] Performed By: #### 2 276-4, 40643-0, 2132-03, 2284-02 #### [facility] CLIA [id number] [address] [place] [id number] [place] Neutrophils/100 WBC (Bld) 45.5 % Normal [facility] Comment on above: Order Comment: Speci men Type: BLOOD SPECIMEN Ordering Facility: [facility] Address: [address] [place] [address] Performed By: #### 2 276-4, 57779-2, 2132-03, 2284-02 #### [facility] CLIA [id number] [address] [place] [address] [place] Nucleated RBC (Bld) [#/Vol] 10*3/uL Normal <0.01 [facility] Comment on above: Order Comment: Speci men Type: BLOOD SPECIMEN Ordering Facility: [facility] Address: [address] [place] [address] Performed By: #### 2 276-4, 52594-1, 2132-03, 2284-02 #### [facility] CLIA [id number] [address] [place] [address] [place] Nucleated RBC/100 WBC (Bld) [Ratio] 0.0 /[address] [facility] Comment on above: Order Comment: Speci men Type: BLOOD SPECIMEN Ordering Facility: [facility] Address: [address] [place] [address] Performed By: #### 2 276-4, 90964-5, 2132-03, 2284-02 #### [facility] CLIA [id number] [address] [place] [address] [place] Platelet mean volume (Bld) [ Entitic vol] 9.7 fL Normal 9.0-12.7 [facility] Comment on above: Order Comment: Speci men Type: BLOOD SPECIMEN Ordering Facility: [facility] Address: [address] [place] [address] Performed By: #### 2 276-4, 03030-4, 2132-03, 2284-02 #### [facility] CLIA [id number] [address] [place], [place] [address] [place] Platelets (Bld) [#/Vol] 131 10*3/uL Low 150-400 [facility] Comment on above: Order Comment: Speci men Type: BLOOD SPECIMEN Ordering Facility: [facility] Address: [place] [address] Performed By: #### 2 276-4, 86834-0, 2131-9, 2283-8 #### [facility] CLIA [id number] [address] [place] [address] [place] RBC (Bld) [#/Vol] 3.87 10*6/uL Low 3.90-5.20 [facility] Comment on above: Order Comment: Speci men Type: BLOOD SPECIMEN Ordering Facility: [facility] Address: [place] [address] Performed By: #### 2 276-4, 83612-2, 2131-9, 2283-8 #### [facility] CLIA [id number] [address] [place] [address] [place] WBC (Bld) [#/Vol] 5.64 10*3/uL Normal 3.70-11.00 [facility] Comment on above: Order Comment: Speci men Type: BLOOD SPECIMEN Ordering Facility: [facility] Address: [place] [address] Performed By: #### 2 276-4, 15784-7, 2131-9, 2283-8 #### [facility] CLIA [id number] [address] [place] [address] [place] CNOVSPon 08-04-2022 CNOVSP Visit (SP) Office (H EMASA) ANDREI LEO ([id number]) 1950 F Date Time Provider Department 08/04/22 3:00 PM JAYDEN CONNELLY During your visit today, we recorded the following information about you: Temperature Pulse Respiration Blood pressure 97.4 degrees 76/minute 16/minute 149/80 Weight Height 85.4 kg 1.588 m Jayden Connelly APRN.CNP 08/04/2022 3:42 PM Signed NAME: Andrei Leo [facility] NO.: [id number] DATE OF SERVICE: August 04, 2021 ([place]) Some elements in this clinic note that are critical to medical decision making have been carefully reviewed and included from a prior clinic note dated: June 23, 2022. (Dr. Ramsey) Additional Clinicians involved in Andrei Leo's care: Dr. Shay, Dr. Deluna CC: Chronic ITP ASSESSMENT/PLAN: 1. Thrombocytopenia (HCC) - ICD9: 287.5, ICD10: D69.6 (primary diagnosis) She has chronic ITP. She has repsonded to Rituxan in the past, most recently she was on Plaquenil (with a history of Lupus) and did not respond to this. Bone marrow biopsy September 13, 2019 showed unremarkable maturing trilineage hematopoiesis. Completed 4 weekly doses of Rituxan 11/2019 and platelet counts improved but still low. 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 - Continues to respond to Tavalisse started 05/2021. 2. Pulmonary nodules - ICD9: 793.19, ICD10: R91.8 : 12/31/2020 CT Chest stable. No new findings. 3. Lupus (HCC) - ICD9: 710.0, ICD10: M32.9: She is asymptomatic from Lupus of the skin. 4. 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 5. HTN - continue Losartan plus HCTZ and continue managing HTN. Improved control even on Tavalisse. 6. Read lesion - may need biopsy in future. PLAN: Continue Tavalisse 100 mg twice daily. (Actually takes 2 pills at the same time) Losartan was increased by nephrology. Taking Losartan 50 mg daily. Continue HCTZ. Refer patient to dermatology for right read lesion and whole body skin assessment. Follow up in 6 weeks with labs. Treatment to Date: 05/14/2021 - Current: Tavalisse 4. 10/31/2019 - 11/21/2019: Weekly Rituxan x 4 3. 04/11/2019 Plaquenil which she stopped 2. January 2019 Prednisone 1. 2017 Rituxan X 4 HPI: Updated Visit, August 04, 2022: Andrei Leo returns for follow-up. She remains on Tavalisse and is tolerating it well. She denies any bleeding or abnormal bruising. Since her last visit she had a colonoscopy and had polyps removed. She states that she was notified of the biopsy results which were negative. She is scheduled for a hearing test on 08/10/2022 and will then see ENT for follow-up on 08/30/2022. 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 Overall, she is doing well today with no new complaints. Updated Visit, June 23, 2022: Andrei is doing well on Tavalisse 100 mg BID. Plts 118. Right anterior read has a erythematous wide streak that throbs at night and is tender to touch. But it has been there for 6 months - 12/09/2021. I don't think this is an infection. She has edema in both legs. Will recommend trying Ice for 15 minutes at a time to see if she has some reduction in inflammation. It is possible that this is a manifestation of lupus. Will monitor. Consider a biopsy of skin if not resolved. Updated Visit, May 12, 2022: Andrei Leo returns for follow-up. She remains on Tavalisse 100 mg twice daily and is tolerating it well. There has been no significant medical changes since her last visit. She states that she is feeling okay. She states that she feels a sinus infection coming on. She noticed her right high becoming puffy which is a sign. She denies fevers and chills. No bleeding or abnormal bruising. She has a follow-up scheduled with nephrology in either June or July. She offers no new complaints today. No new issues, problems or concerns. Updated Visit, March 31, 2022: Andrei is 71 yo and returns in follow up for ITP currently controlled with fostamatinib. Seems to bruise more easily with blood draws. Labs are stable. Plts 119k, hgb 11.6 Tolerating Tavalisse without difficulty however, LFT will need to be monitored as they are slightly increased. Got back from [place] and saw her sisters and had a nice trip with her of 54 yrs. Updated Visit, February 11, 2022: Andrei Leo returns for scheduled follow-up. She remains on Tavalisse 100 mg twice daily and is tolerating it well. She denies any signs of bleeding or abnormal bruising. Also no signs of blood clots. She saw Dr. Gilson Troncoso today. She states that she was told she has protein in her urine. She will have her next follow-up with nephrology in 6 months. She is stil having issues with her sinuses and plans to follow-u (more content not included)... Normal [facility] Leeanna [facility]04[facility]2022 [facility] ANDREI LEO ([id number]) 1950 F Date Time Provider Department 08/04/22 JAYDEN CONNELLY During your visit today, we recorded the following information about you: Jesica Muñoz 08/04/2022 2:42 PM Signed Patient wanted to hold off on being referred to Dermatology at this time. She is going to check with her insurance company for in network providers and let our office know on where she would like to be referred to. Jesica Muñoz Allergies As of Date: 08/04/2022 Noted Allergy Reaction TETNUS (TETANUS VACCINES AND TOXO*03/03/2016 16 - Unknown VANCOMYCIN 03/03/2016 16 - Unknown Comments: Burning sensation Date Reviewed: 08/04/2022 Reviewed by: Jayden Connelly APRN.[employer] - Fully Assessed Reason for Visit: Referral Information [0072] Cmt: Dermatology Prescriptions as of 08/08/2022 - benzonatate (TESSALON PERLE) 100 mg capsule TAKE 1 CAPSULE BY MOUTH EVERY 6 HOURS NEEDED FOR COUGH. - pilocarpine (SALAGEN) 5 mg tablet TAKE 1 TABLET BY MOUTH THREE TIMES A DAY - losartan (COZAAR) 25 mg tablet TAKE 2 TABLETS BY MOUTH EVERY DAY - fostamatinib (TAVALISSE) 100 mg tablet Take 1 tablet by mouth twice daily. - hydroCHLOROthiazide (HYDRODIURIL, ESIDRIX) 25 mg tablet TAKE 1 TABLET BY MOUTH EVERY DAY - cholecalciferol, vitamin D3, (VITAMIN D3 ORAL) Take by mouth. Problem List As Of Date 08/04/2022 Noted Resolved Thrombocytopenia (HCC) [D69.6] 03/03/2016 Abnormal weight loss [R63.4] 03/03/2016 Lupus (HCC) [M32.9] 03/03/2016 Acute ITP (HCC) [D69.3] 05/26/2016 Family history of breast cancer [Z80.3] 04/13/2017 Chronic ITP (idiopathic thrombocytopenia) (HCC)*09/08/2017 Nocturnal leg cramps [G47.62] 10/05/2017 Obstructive sleep apnea syndrome [G47.33] 05/13/2021 Essential hypertension [I10] 05/13/2021 Encounter Status:Closed by JESICA MUÑOZ on 08/08/[address] [facility] Centromere Ab IF Ql (S)on Centromere Ab Qn (S) <0.2 Normal <1.0 [facility] Comment on above: Order Comment: Fabricio tapia Type: BLOOD SPECIMEN Ordering Facility: [facility] Address: [address] [place] [address] Result Comment: Anti -centromere antibody is used as in aid in diagnosis of systemic sclerosis. Clinical correlation is required. Test Methodology: Multiplex flow immunoassay. Performed By: #### 2 276-4, 96594-7, 2132-9, 2284-8 #### [facility] CLIA [id number] [address] [place] [address] [place] CENTROMERE AB QUAL Negative Normal Negative [facility] Comment on above: Order Comment: Fabricio tapia Type: BLOOD SPECIMEN Ordering Facility: [facility] Address: [address] [place] [address] Performed By: #### 2 276-4, 42908-8, 9, 2284-02 #### [facility] CLIA [id number] [address] [place] [address] [place] Chromatin Ab Qnon 08-04-2022 CHROMATIN AB QUAL Negative Normal Negative [facility] Comment on above: Order Comment: Speci men Type: BLOOD SPECIMEN Ordering Facility: [facility] Address: [address] [place] [address] Performed By: #### 2 276-4, 34043-8, 9, 2284-02 #### [facility] CLIA [id number] [address] [place] [address] [place] Chromatin Ab SerPl-aCncon Chromatin Ab Qn <0.2 Normal <1.0 [facility] Comment on above: Order Comment: Speci men Type: BLOOD SPECIMEN Ordering Facility: [facility] Address: [address] [place] [address] Result Comment: Test Methodology: Multiplex flow immunoassay. Performed By: #### 2 276-4, 59905-7, 9, 2284-02 #### [facility] CLIA [id number] [address] [place] [address] [place] Comprehensive metabolic 2000 panelon 08-04-2022 Albumin [Mass/Vol] 4.2 g/dL Normal 3.9-4.9 [facility] Comment on above: Order Comment: Speci men Type: BLOOD SPECIMEN Ordering Facility: [facility] Address: [address] [place] [address] Performed By: #### 2 276-4, 31090-8, 9, 2284-02 #### [facility] CLIA [id number] [address] [place] [address] [place] ALP [Catalytic activity/Vol] 81 U/L Normal 34-123 [facility] Comment on above: Order Comment: Speci men Type: BLOOD SPECIMEN Ordering Facility: [facility] Address: [address] [place] [address] Performed By: #### 2 276-4, 73778-0, 9, 8 #### [facility] CLIA [id number] [address] [place] [address] [place] ALT [Catalytic activity/Vol] 33 U/L Normal 7-38 [facility] Comment on above: Order Comment: Speci men Type: BLOOD SPECIMEN Ordering Facility: [facility] Address: [address] [place] [address] Performed By: #### 2 276-4, 93830-6, 9, 2284-02 #### [facility] CLIA [id number] [address] [place] [address] [place] Anion gap [Moles/Vol] 8 mmol/L Low 9-18 [facility] Comment on above: Order Comment: Speci men Type: BLOOD SPECIMEN Ordering Facility: [facility] Address: [address] [place] [address] Performed By: #### 2 276-4, 12007-0, 9, 2284-02 #### [facility] CLIA [id number] [address] [place] [address] [place] AST [Catalytic activity/Vol] 53 U/L High 13-35 [facility] Comment on above: Order Comment: Speci men Type: BLOOD SPECIMEN Ordering Facility: [facility] Address: [address] [place] [address] Performed By: #### 2 276-4, 41162-3, 9, 2284-02 #### [facility] CLIA [id number] [address] [place] [address] [place] Bilirubin [Mass/Vol] 0.7 mg/dL Normal 0.2-1.3 [facility] Comment on above: Order Comment: Speci men Type: BLOOD SPECIMEN Ordering Facility: [facility] Address: [address] [place] [address] Performed By: #### 2 276-4, 76367-9, 9, 8 #### [facility] CLIA [id number] [address] [place], [place] [address] [place] Calcium [Mass/Vol] 9.3 mg/dL Normal 8.5-10.2 [facility] Comment on above: Order Comment: Speci men Type: BLOOD SPECIMEN Ordering Facility: [facility] Address: [address] [place] [address] Performed By: #### 2 276-4, 81701-0, 9, 2284-02 #### [facility] CLIA [id number] [address] [place] [address] [place] Chloride [Moles/Vol] 101 mmol/L Normal 97-105 [facility] Comment on above: Order Comment: Speci men Type: BLOOD SPECIMEN Ordering Facility: [facility] Address: [address] [place] [address] Performed By: #### 2 276-4, 55258-8, 9, 2284-02 #### [facility] CLIA [id number] [address] [place] [address] [place] CO2 [Moles/Vol] 28 mmol/L Normal 22-30 [facility] Comment on above: Order Comment: Speci men Type: BLOOD SPECIMEN Ordering Facility: [facility] Address: [address] [place] [id number] Performed By: #### 2 276-4, 82776-0, 9, 2284-02 #### [facility] CLIA [id number] [address] [place] [address] [place] Creatinine [Mass/Vol] 0.99 mg/dL High 0.58-0.96 [facility] Comment on above: Order Comment: Speci men Type: BLOOD SPECIMEN Ordering Facility: [facility] Address: [address] [place] [address] Performed By: #### 2 276-4, 60759-2, 2132-03, 2284-02 #### [facility] CLIA [id number] [address] [place] [address] [place] ESTIMATED GLOMERULAR FILTRATION RATE 61 mL/min/1.73m??? Normal >=60 [facility] Comment on above: Order Comment: Fabricio tapia Type: BLOOD SPECIMEN Ordering Facility: [facility] Address: [address] [place] [address] Result Comment: Miryam mated Glomerular Filtration Rate (eGFR) is calculated using the 2020 CKD-EPI creatinine equation. This equation utilizes serum creatinine, sex, and age as parameters. The creatinine assay has traceable calibration to isotope dilution-mass spectrometry. Refer to KDIGO guidelines for clinical interpretation. In patients with unstable renal function, e.g. those with acute kidney injury, the eGFR may not accurately reflect actual GFR. Performed By: #### 2 276-4, 78316-8, 2132-03, 2284-02 #### [facility] CLIA [id number] [facility] [place] [address] [place] Glucose [Mass/Vol] 106 mg/dL High 74-99 [facility] Comment on above: Order Comment: Fabricio tapia Type: BLOOD SPECIMEN Ordering Facility: [facility] Address: [address] [place] [address] Result Comment: The [place] Diabetes Association (ADA) provides guidance for cutoff values for fasting glucose and random glucose. The ADA defines fasting as no caloric intake for at least 8 hours. Fasting plasma glucose results between 100 to 125 mg/dL indicate increased risk for diabetes (prediabetes). Fasting plasma glucose results greater than or equal to 126 mg/dL meet the criteria for diagnosis of diabetes. In the absence of unequivocal hyperglycemia, results should be confirmed by repeat testing. In a patient with classic symptoms of hyperglycemia or hyperglycemic crisis, random plasma glucose results greater than or equal to 200 mg/dL meet the criteria for diagnosis of diabetes. Reference: Standards of Medical Care in Diabetes 2016, [place] [employer]. Diabetes Care. 2016.39(Suppl 1). Performed By: #### 2 276-4, 93148-1, 2132-03, 2284-02 #### [facility] CLIA [id number] [address] [address] [place] Potassium [Moles/Vol] 3.7 mmol/L Normal 3.7-5.1 [facility] Comment on above: Order Comment: Speci men Type: BLOOD SPECIMEN Ordering Facility: [facility] Address: [address] [place] [address] Performed By: #### 2 276-4, 96699-2, 2132-03, 2284-02 #### [facility] CLIA [id number] [address] [address] [place] Protein [Mass/Vol] 8.4 g/dL High 6.3-8.0 [facility] Comment on above: Order Comment: Speci men Type: BLOOD SPECIMEN Ordering Facility: [facility] Address: [address] [place] [address] Performed By: #### 2 276-4, 35267-4, 2132-03, 2284-02 #### [facility] CLIA [id number] [address] [place], [place] [address] [place] Sodium [Moles/Vol] 137 mmol/L Normal 136-144 [facility] Comment on above: Order Comment: Speci men Type: BLOOD SPECIMEN Ordering Facility: [facility] Address: [address] [place] [address] Performed By: #### 2 276-4, 68061-0, 2132-03, 2284-02 #### [facility] CLIA [id number] [address] [address] [place] Urea nitrogen [Mass/Vol] 29 mg/dL High 7-21 [facility] Comment on above: Order Comment: Speci men Type: BLOOD SPECIMEN Ordering Facility: [facility] Address: [address] [place] [address] Performed By: #### 2 276-4, 13001-4, 2132-03, 2284-02 #### [facility] CLIA [id number] [address] [place] [address] [place] REJI Jo1 Ab Ser-aCncon 2022 Nidia-1 extractable nuclear Ab Qn (S) <0.2 Normal < 1.0 [facility] Comment on above: Order Comment: Speci men Type: BLOOD SPECIMEN Ordering Facility: [facility] Address: [address] [place] [address] Performed By: #### 2 276-4, 63625-2, 2132-03, 2284-02 #### [facility] CLIA [id number] [address] [place] [address] [place] REJI ADMINISTRATIVE SERVICES OFFICER Ab Ser-aCncon 2022 Ribonucleoprotein extractabl e nuclear Ab Qn (S) <0.2 Normal <1.0 [facility] Comment on above: Order Comment: Speci men Type: BLOOD SPECIMEN Ordering Facility: [facility] Address: [address] [place] [address] Performed By: #### 2 276-4, 94639-9, 2132-03, 2284-02 #### [facility] CLIA [id number] [address] [place] [address] [place] Ribonucleoprotein extractabl e nuclear Ab Qn (S) 0.9 AI Normal <1.0 [facility] Comment on above: Order Comment: Speci men Type: BLOOD SPECIMEN Ordering Facility: [facility] Address: [address] [place] [address] Performed By: #### 2 276-4, 22888-7, 2132-03, 2284-02 #### [facility] CLIA [id number] [address] [place] [address] [place] REJI SM IgG Ser-aCncon 2022 Milligan extractable nuclear IgG Qn (S) 0.5 AI Normal <1.0 [facility] Comment on above: Order Comment: Speci men Type: BLOOD SPECIMEN Ordering Facility: [facility] Address: [address] [place] [address] Performed By: #### 2 276-4, 15681-8, 2132-03, 2284-02 #### [facility] CLIA [id number] [address] [place] [address] [place] REJI SS-A Ab Ser-aCncon 08-04 Sjogrens syndrome-A extracta ble nuclear Ab Qn (S) >8.0 High <[address].0 [facility] Comment on above: Order Comment: Speci men Type: BLOOD SPECIMEN Ordering Facility: [facility] Address: [address] [place] [address] Result Comment: Test Methodology: Multiplex flow immunoassay. Performed By: #### 2 276-4, 72014-4, 2132-03, 2284-02 #### [facility] CLIA [id number] [address] [place] [address] [place] REJI SS-B Ab Ser-aCncon 08-04 Sjogrens syndrome-B extracta ble nuclear Ab Qn (S) 6.7 AI High <1.0 [facility] Comment on above: Order Comment: Speci men Type: BLOOD SPECIMEN Ordering Facility: [facility] Address: [address] [place] [address] Result Comment: Anti -SSB (anti-La) antibody is used as an aid in diagnosis of a variety of systemic autoimmune diseases, especially for Sjogren's syndrome and systemic lupus erythematosus. Clinical correlation is required. Test Methodology: Multiplex flow immunoassay. Performed By: #### 2 276-4, 74285-6, 2132-03, 2284-02 #### [facility] CLIA [id number] [address] [place] [address] [place] Nidia-1 extractable nuclear Ab Qn (S)on 08-04-2022 NIDIA 1 ANTIBODY QUAL Negative Normal Negative [facility] Comment on above: Order Comment: Speci men Type: BLOOD SPECIMEN Ordering Facility: [facility] Address: [address] [place] [address] Result Comment: Anti -NIDIA-1 antibody is used as an aid in diagnosis of polymyositis and dermatomyositis especially with pulmonary involvement. A negative result cannot rule out polymyositis or dermatomyositis. Clinical correlation is required. Test Methodology: Multiplex flow immunoassay. Performed By: #### 2 276-4, 28031-7, 9, 2284-02 #### [facility] CLIA [id number] [address] [place] [address] [place] LDH SerPl-cCncon 08-04-2022 LDH [Catalytic activity/Vol] 201 U/L Normal 135-214 [facility] Comment on above: Order Comment: Fabricio tapia Type: BLOOD SPECIMEN Ordering Facility: [facility] Address: [address] [place] [address] Performed By: #### 2 276-4, 52288-1, 2132-03, 2284-02 #### [facility] CLIA [id number] [address] [place] [address] [place] Nuclear Ab IA Ql (S)on 08-04 RAAD BY EIA, QUAL Positive Abnormal Negative [facility] Comment on above: Order Comment: Fabricio tapia Type: BLOOD SPECIMEN Ordering Facility: [facility] Address: [address] [place] [address] Result Comment: The qualitative antinuclear antibody screen test performed using enzyme immunoassay including the following antigens: dsDNA, histones, SS-A, SS-B, Sm, Sm/ADMINISTRATIVE SERVICES OFFICER, Scl-70, Nidia-1, and centromeric antigens. Performed By: #### 2 276-4, 66195-4, 2132-03, 2284-02 #### [facility] CLIA [id number] [address] [place] [address] [place] Ribonucleoprotein extractabl e nuclear Ab Qn (S)on 08-04-2022 ANTI-ADMINISTRATIVE SERVICES OFFICER QUAL Negative Normal Negative [facility] Comment on above: Order Comment: Fabricio tapia Type: BLOOD SPECIMEN Ordering Facility: [facility] Address: [address] [place] [address] Performed By: #### 2 276-4, 42375-6, 2132-03, 2284-02 #### [facility] CLIA [id number] [facility] [place] [address] [place] RIBOSOMAL ADMINISTRATIVE SERVICES OFFICER QUAL Negative Normal Negative [facility] Comment on above: Order Comment: Speci men Type: BLOOD SPECIMEN Ordering Facility: [facility] Address: [address] [place] [address] Result Comment: Anti -Ribosomal RNA (Ribosomal P) antibody is used as an aid in diagnosis of systemic autoimmune diseases especially systemic lupus erythematosus and mixed connective tissue disease. Cross-reactivity with Anti-milligan antibody is not uncommon. Clinical correlation is required. Test Methodology: Multiplex flow immunoassay. Performed By: #### 2 276-4, 56855-9, 2132-03, 2284-02 #### [facility] CLIA [id number] [address] [place] [address] [place] SCL-70 extractable nuclear I gG IA Qn (S)on 08-04-2022 SCLERODERMA AB QUAL Negative Normal Negative [facility] Comment on above: Order Comment: Speci men Type: BLOOD SPECIMEN Ordering Facility: [facility] Address: [address] [place] [address] Performed By: #### 2 276-4, 09231-8, 2132-03, 2284-02 #### [facility] CLIA [id number] [address] [place] [address] [place] SCLERODERMA IGG AB <0.2 Normal <1.0 [facility] Comment on above: Order Comment: Speci men Type: BLOOD SPECIMEN Ordering Facility: [facility] Address: [address] [place] [address] Result Comment: Scl- 70/Scleroderma antibody test is used as an aid in diagnosis of systemic sclerosis especially the diffuse cutaneous form. A negative result cannot rule out systemic sclerosis. The final interpretation should consider clinical picture and other test results such as anti-centromere antibody. Test Methodology: Multiplex flow immunoassay. Performed By: #### 2 276-4, 32560-4, 2132-03, 2284-02 #### [facility] CLIA [id number] [address] [place] [address] [place] Sjogrens syndrome-A extracta ble nuclear Ab Qn (S)on 08-04-2022 SSA ANTIBODY QUAL Positive Abnormal Negative [facility] Comment on above: Order Comment: Speci men Type: BLOOD SPECIMEN Ordering Facility: [facility] Address: [address] [place] [address] Performed By: #### 2 276-4, 74742-0, 2132-03, 2284-02 #### [facility] CLIA [id number] [address] [place] [address] OF [place] Sjogrens syndrome-B extracta ble nuclear Ab Qn (S)on 08-04-2022 SSB ANTIBODY QUAL Positive Abnormal Negative [facility] Comment on above: Order Comment: Speci men Type: BLOOD SPECIMEN Ordering Facility: [facility] Address: [address] [place] [address] Performed By: #### 2 276-4, 51869-7, 2132-03, 2284-02 #### [facility] CLIA [id number] [address] [place] [address] [place] Milligan extractable nuclear Ig G Qn (S)on 08-04-2022 SM ANTIBODY QUAL Negative Normal Negative [facility] Comment on above: Order Comment: Speci men Type: BLOOD SPECIMEN Ordering Facility: [facility] Address: [address] [place] [address] Result Comment: Anti -Sm (Milligan) antibody is used as an aid in diagnosis of systemic lupus erythematosus and its presence is associated with renal disease. A negative result cannot rule out systemic lupus erythematosus. Clinical correlation is required. Test Methodology: Multiplex flow immunoassay. Performed By: #### 2 276-4, 48687-7, 2132-03, 2284-02 #### [facility] CLIA [id number] [address] [place] [address] OF [place] dsDNA Ab Ser IA-aCncon 08-04 DNA double strand Ab IA Qn (S) 30.32 IU/mL High <30 [facility] Comment on above: Order Comment: Speci men Type: BLOOD SPECIMEN Ordering Facility: [facility] Address: [address] [place] [address] Result Comment: Equi vocal for ds DNA Antibodies. <30 IU/mL Negative 30-74 IU/mL Equivocal >74 IU/mL Positive Performed By: #### 2 276-4, 25441-9, 2132-03, 2284-02 #### [facility] CLIA [id number] [address] [place] [address] [place] CBC W Auto Differential pane l (Bld)on 06-23-2022 Basophils (Bld) [#/Vol] 10*3/uL [facility].11 [facility]: Order Comment: Speci men Type: BLOOD SPECIMEN Ordering Facility: [facility] Address: [address] [place] [address] Performed By: #### 2 276-4, 15842-6, 2132-03, 2284-02 #### [facility] CLIA [id number] [address] [place] [address] [place] Basophils/100 WBC (Bld) 0.2 % Normal C [facility] Comment on above: Order Comment: Speci men Type: BLOOD SPECIMEN Ordering Facility: [facility] Address: [address] [place] [address] Performed By: #### 2 276-4, 18843-9, 9, 2284-02 #### [facility] CLIA [id number] [address] [place] [address] [place] Differential cell count method Nom (Bld) Auto Normal [facility] Comment on above: Order Comment: Speci men Type: BLOOD SPECIMEN Ordering Facility: [facility] Address: [address] [place] [address] Performed By: #### 2 276-4, 78390-9, 2132-03, 2284-02 #### [facility] CLIA [id number] [address] [place] [address] [place] Eosinophils (Bld) [#/Vol] 0.04 10*3/uL Normal <0.46 [facility] Comment on above: Order Comment: Speci men Type: BLOOD SPECIMEN Ordering Facility: [facility] Address: [address] [place] [address] Performed By: #### 2 276-4, 02965-1, 2132-03, 2284-02 #### [facility] CLIA [id number] [address] [place] [address] [place] Eosinophils/100 WBC (Bld) 0.7 % Normal [facility] Comment on above: Order Comment: Speci men Type: BLOOD SPECIMEN Ordering Facility: [facility] Address: [address] [place] [address] Performed By: #### 2 276-4, 33434-3, 2132-03, 2284-02 #### [facility] CLIA [id number] [address] [place] [address] [place] Erythrocyte distribution wid th (RBC) [Ratio] 14.5 % Normal 11.5-15.0 [facility] Comment on above: Order Comment: Speci men Type: BLOOD SPECIMEN Ordering Facility: [facility] Address: [address] [place] [address] Performed By: #### 2 276-4, 34142-5, 2132-03, 2284-02 #### [facility] CLIA [id number] [address] [place] [address] [place] Hematocrit (Bld) [Volume fraction] 36.2 % Normal 3 6.0-46.0 [facility] Comment on above: Order Comment: Speci men Type: BLOOD SPECIMEN Ordering Facility: [facility] Address: [address] [place] [address] Performed By: #### 2 276-4, 33663-6, 9, 2284-02 #### [facility] CLIA [id number] [address] [place], [place] [address] [place] Hemoglobin (Bld) [Mass/Vol] 11.2 g/dL Low 11.5-15. 5 [facility] Comment on above: Order Comment: Speci men Type: BLOOD SPECIMEN Ordering Facility: [facility] Address: [address] [place] [address] Performed By: #### 2 276-4, 59540-4, 9, 2284-02 #### [facility] CLIA [id number] [address] [place] [address] [place] Immature granulocytes (Bld) [#/Vol] 10*3/uL Normal <0.10 [facility] Comment on above: Order Comment: Speci men Type: BLOOD SPECIMEN Ordering Facility: [facility] Address: [address] [place] [address] Performed By: #### 2 276-4, 89097-3, 9, 2284-02 #### [facility] CLIA [id number] [address] [place] [address] [place] Immature granulocytes/100 WBC (Bld) 0.2 % Normal [facility] Comment on above: Order Comment: Speci men Type: BLOOD SPECIMEN Ordering Facility: [facility] Address: [address] [place] [address] Performed By: #### 2 276-4, 90764-0, 2132-03, 2284-02 #### [facility] CLIA [id number] [address] [place] [address] [place] Lymphocytes (Bld) [#/Vol] 2.74 10*3/uL Normal 1.00-4.[address] [facility] Comment on above: Order Comment: Speci men Type: BLOOD SPECIMEN Ordering Facility: [facility] Address: [address] [place] [address] Performed By: #### 2 276-4, 00741-0, 9, 2284-02 #### [facility] CLIA [id number] [address] [place] [address] [place] Lymphocytes/100 WBC (Bld) 49.7 % Normal [facility] Comment on above: Order Comment: Speci men Type: BLOOD SPECIMEN Ordering Facility: [facility] Address: [address] [place] [address] Performed By: #### 2 276-4, 58793-4, 2132-03, 2284-02 #### [facility] CLIA [id number] [address] [place] [address] [place] MCH (RBC) [Entitic mass] 29.6 pg Normal 26.0-34.0 [facility] Comment on above: Order Comment: Speci men Type: BLOOD SPECIMEN Ordering Facility: [facility] Address: [address] [place] [address] Performed By: #### 2 276-4, 67711-1, 2132-03, 2284-02 #### [facility] CLIA [id number] [address] [place] [address] [place] MCHC (RBC) [Mass/Vol] 30.9 g/dL Normal 30.5-36.0 [facility] Comment on above: Order Comment: Speci men Type: BLOOD SPECIMEN Ordering Facility: [facility] Address: [address] [place] [address] Performed By: #### 2 276-4, 95482-7, 2132-03, 2284-02 #### [facility] CLIA [id number] [address] [place] [address] [place] MCV (RBC) [Entitic vol] 95.5 fL Normal 80.0-100.0 C [facility] Comment on above: Order Comment: Speci men Type: BLOOD SPECIMEN Ordering Facility: [facility] Address: [address] [place] [address] Performed By: #### 2 276-4, 23720-3, 9, 2284-02 #### [facility] CLIA [id number] [address] [place] [address] [place] Monocytes (Bld) [#/Vol] 0.25 10*3/uL Normal <0.87 [facility] Comment on above: Order Comment: Speci men Type: BLOOD SPECIMEN Ordering Facility: [facility] Address: [address] [place] [address] Performed By: #### 2 276-4, 23649-8, 9, 2284-02 #### [facility] CLIA [id number] [address] [place] [address] [place] Monocytes/100 WBC (Bld) 4.5 % Normal [facility] Comment on above: Order Comment: Speci men Type: BLOOD SPECIMEN Ordering Facility: [facility] Address: [address] [place] [address] Performed By: #### 2 276-4, 53289-4, 9, 2284-02 #### [facility] CLIA [id number] [address] [place], [place] [address] [place] Neutrophils (Bld) [#/Vol] 2.46 10*3/uL Normal 1.45-7.[address] [facility] Comment on above: Order Comment: Speci men Type: BLOOD SPECIMEN Ordering Facility: [facility] Address: [address] [place] [address] Performed By: #### 2 276-4, 17269-9, 9, 2284-02 #### [facility] CLIA [id number] [address] [place], [place] [address] [place] Neutrophils/100 WBC (Bld) 44.7 % Normal [facility] Comment on above: Order Comment: Speci men Type: BLOOD SPECIMEN Ordering Facility: [facility] Address: [address] [place] [address] Performed By: #### 2 276-4, 30611-0, 9, 2284-02 #### [facility] CLIA [id number] [address] [place], [place] [address] [place] Nucleated RBC (Bld) [#/Vol] 10*3/uL Normal <0.01 [facility] Comment on above: Order Comment: Speci men Type: BLOOD SPECIMEN Ordering Facility: [facility] Address: [address] [place] [address] Performed By: #### 2 276-4, 81304-0, 9, 2284-02 #### [facility] CLIA [id number] [address] [place] [address] [place] Nucleated RBC/100 WBC (Bld) [Ratio] 0.0 /[address] [facility] Comment on above: Order Comment: Speci men Type: BLOOD SPECIMEN Ordering Facility: [facility] Address: [address] [place] [address] Performed By: #### 2 276-4, 93698-8, 9, 2284-02 #### [facility] CLIA [id number] [address] [place] [address] [place] Platelet mean volume (Bld) [Entitic vol] 10.1 fL Normal 9.0-12.7 [facility] Comment on above: Order Comment: Speci men Type: BLOOD SPECIMEN Ordering Facility: [facility] Address: [address] [place] [address] Performed By: #### 2 276-4, 48259-4, 9, 2284-02 #### [facility] CLIA [id number] [address] [place], [place] [id number] [place] Platelets (Bld) [#/Vol] 118 10*3/uL Low 150-400 [facility] Comment on above: Order Comment: Speci men Type: BLOOD SPECIMEN Ordering Facility: [facility] Address: [address] [place] [address] Performed By: #### 2 276-4, 07767-5, 2131-9, 2283-8 #### [facility] CLIA [id number] [address] [place] [address] [place] RBC (Bld) [#/Vol] 3.79 10*6/uL Low 3.90-5.20 [facility] Comment on above: Order Comment: Speci men Type: BLOOD SPECIMEN Ordering Facility: [facility] Address: [address] [place] [address] Performed By: #### 2 276-4, 33367-9, 2131-9, 2283-8 #### [facility] CLIA [id number] [address] [place] [address] [place] WBC (Bld) [#/Vol] 5.51 10*3/uL Normal 3.70-11.00 [facility] Comment on above: Order Comment: Speci men Type: BLOOD SPECIMEN Ordering Facility: [facility] Address: [address] [place] [address] Performed By: #### 2 276-4, 78503-6, 2131-9, 2283-8 #### [facility] CLIA [id number] [address] [place] [address] [place] CNOVSPon 06-23-2022 CNOVSP Visit (SP) Office ([facility]) ANDREI LEO ([id number]) 1950 F Date Time Provider Department 06/23/22 2:30 PM RINKU RAMSEY During your visit today, we recorded the following information about you: Temperature Pulse Respiration Blood pressure 97.6 degrees 66/minute 16/minute 156/88 Weight Height 88.3 kg 1.588 m Rinku Ramsey MD 06/23/2022 2:47 PM Signed NAME: Andrei Leo CLINIC NO.: [id number] DATE OF SERVICE: June 23, 2022 ([place]) Some elements in this clinic note that are critical to medical decision making have been carefully reviewed and included from a prior clinic note dated: May 12, 2022 ([place]) Additional Clinicians involved in Andrei Leo's care: Dr. Shay, Dr. Deluna CC: Chronic ITP ASSESSMENT/PLAN: 1. Thrombocytopenia (HCC) - ICD9: 287.5, ICD10: D69.6 (primary diagnosis) She has chronic ITP. She has repsonded to Rituxan in the past, most recently she was on Plaquenil (with a history of Lupus) and did not respond to this. Bone marrow biopsy September 13, 2019 showed unremarkable maturing trilineage hematopoiesis. Completed 4 weekly doses of Rituxan 11/2019 and platelet counts improved but still low. 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 - Continues to respond to Tavalisse started 05/2021. 2. Pulmonary nodules - ICD9: 793.19, ICD10: R91.8 : 12/31/2020 CT Chest stable. No new findings. 3. Lupus (HCC) - ICD9: 710.0, ICD10: M32.9: She is asymptomatic from Lupus of the skin. 4. 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 5. HTN - continue Losartan plus HCTZ and continue managing HTN. Improved control even on Tavalisse. 6. Read lesion - may need biopsy in future. PLAN: Continue Tavalisse 100 mg twice daily. Losartan was increased by nephrology. Taking Losartan 50 mg daily. Continue HCTZ. Right read lesion - trial of ice. Follow up in 6 weeks with labs. See Jayden please. - consider biopsy of right read. Treatment to Date: 05/14/2021 - Current: Tavalisse 4. 10/31/2019 - 11/21/2019: Weekly Rituxan x 4 3. 04/11/2019 Plaquenil which she stopped 2. January 2019 Prednisone 1. 2017 Rituxan X 4 HPI: Updated Visit, June 23, 2022: Andrei is doing well on Tavalisse 100 mg BID. Plts 118. Right anterior read has a erythematous wide streak that throbs at night and is tender to touch. But it has been there for 6 months - 12/09/2021. I don't think this is an infection. She has edema in both legs. Will recommend trying Ice for 15 minutes at a time to see if she has some reduction in inflammation. It is possible that this is a manifestation of lupus. Will monitor. Consider a biopsy of skin if not resolved. Updated Visit, May 12, 2022: Andrei Leo returns for follow-up. She remains on Tavalisse 100 mg twice daily and is tolerating it well. There has been no significant medical changes since her last visit. She states that she is feeling okay. She states that she feels a sinus infection coming on. She noticed her right high becoming puffy which is a sign. She denies fevers and chills. No bleeding or abnormal bruising. She has a follow-up scheduled with nephrology in either June or July. She offers no new complaints today. No new issues, problems or concerns. Updated Visit, March 31, 2022: Andrei is 71 yo and returns in follow up for ITP currently controlled with fostamatinib. Seems to bruise more easily with blood draws. Labs are stable. Plts 119k, hgb 11.6 Tolerating Tavalisse without difficulty however, LFT will need to be monitored as they are slightly increased. Got back from [place] and saw her sisters and had a nice trip with her of 54 yrs. Updated Visit, February 11, 2022: Andrei Leo returns for scheduled follow-up. She remains on Tavalisse 100 mg twice daily and is tolerating it well. She denies any signs of bleeding or abnormal bruising. Also no signs of blood clots. She saw Dr. Gilson Troncoso today. She states that she was told she has protein in her urine. She will have her next follow-up with nephrology in 6 months. She is stil having issues with her sinuses and plans to follow-up with the health clinic. She has ongoing issues with dry mouth. Overall, she is doing fairly well. Updated Visit, December 17, 2021: Andrei Leo returns for scheduled follow-up. She remains on Tavalisse and is tolerating it well. She denies any signs of bleeding or abnormal bruising. No signs of blood clots. She had a consultation with nephrology, Dr. Gilson Sarah. Dr. Sarah increased her losartan to 50 mg daily. He also ordered a renal ultrasound. She has a follow up scheduled in February. She complains today of leg cramps. Overall, she is doing well. 11/20/2021 Ultrasound retroperitoneal complete Impression: 1. No evidence o (more content not included)... Normal [facility] Comprehensive metabolic 2000 panelon 06-23-2022 Albumin [Mass/Vol] 3.9 g/dL Normal 3.9-4.9 [facility] Comment on above: Order Comment: Speci men Type: BLOOD SPECIMEN Ordering Facility: [facility] Address: [address] [place] [address] Performed By: #### 2 276-4, 55008-2, 2132-03, 2284-02 #### [facility] CLIA [id number] [address] [place] [address] [place] ALP [Catalytic activity/Vol] 81 U/L Normal 34-123 [facility] Comment on above: Order Comment: Speci men Type: BLOOD SPECIMEN Ordering Facility: [facility] Address: [address] [place] [address] Performed By: #### 2 276-4, 96402-7, 2132-03, 2284-02 #### [facility] CLIA [id number] [address] [place] [address] [place] ALT [Catalytic activity/Vol] 38 U/L Normal 7-38 [facility] Comment on above: Order Comment: Speci men Type: BLOOD SPECIMEN Ordering Facility: [facility] Address: [address] [place] [address] Performed By: #### 2 276-4, 89485-5, 2132-03, 2284-02 #### [facility] CLIA [id number] [facility] [place] [address] [place] Anion gap [Moles/Vol] 5 mmol/L Low 9-18 [facility] Comment on above: Order Comment: Speci men Type: BLOOD SPECIMEN Ordering Facility: [facility] Address: [address] [place] [address] Performed By: #### 2 276-4, 73868-2, 9, 8 #### [facility] CLIA [id number] [address] [place] [address] [place] AST [Catalytic activity/Vol] 54 U/L High 13-35 [facility] Comment on above: Order Comment: Speci men Type: BLOOD SPECIMEN Ordering Facility: [facility] Address: [address] [place] [address] Performed By: #### 2 276-4, 36831-3, 9, 8 #### [facility] CLIA [id number] [address] [place] [address] [place] Bilirubin [Mass/Vol] 0.6 mg/dL Normal 0.2-1.3 [facility] Comment on above: Order Comment: Speci men Type: BLOOD SPECIMEN Ordering Facility: [facility] Address: [address] [place] [address] Performed By: #### 2 276-4, 45764-2, 9, 8 #### [facility] CLIA [id number] [address] [place] [address] [place] Calcium [Mass/Vol] 9.4 mg/dL Normal 8.5-10.2 [facility] Comment on above: Order Comment: Speci men Type: BLOOD SPECIMEN Ordering Facility: [facility] Address: [address] [place] [address] Performed By: #### 2 276-4, 24148-3, 9, 8 #### [facility] CLIA [id number] [facility] [place] [address] [place] Chloride [Moles/Vol] 102 mmol/L Normal 97-105 [facility] Comment on above: Order Comment: Speci men Type: BLOOD SPECIMEN Ordering Facility: [facility] Address: [address] [place], [place] [id number] Performed By: #### 2 276-4, 69074-8, 2131-9, 2283-8 #### [facility] CLIA [id number] [address] [place] [address] [place] CO2 [Moles/Vol] 28 mmol/L Normal 22-30 [facility] Comment on above: Order Comment: Speci men Type: BLOOD SPECIMEN Ordering Facility: [facility] Address: [address] [place] [address] Performed By: #### 2 276-4, 51062-3, 9, 8 #### [facility] CLIA [id number] [address] [place] [address] [place] Creatinine [Mass/Vol] 0.86 mg/dL Normal 0.58-0.96 [facility] Comment on above: Order Comment: Speci men Type: BLOOD SPECIMEN Ordering Facility: [facility] Address: [address] [place] [address] Performed By: #### 2 276-4, 90158-3, 9, 8 #### [facility] CLIA [id number] [address] [place], [place] [id number] [place] ESTIMATED GLOMERULAR FILTRATION RATE 72 mL/min/1.73m??? Normal >=60 [facility] Comment on above: Order Comment: Speci men Type: BLOOD SPECIMEN Ordering Facility: [facility] Address: [address] [place] [address] Result Comment: Miryam mated Glomerular Filtration Rate (eGFR) is calculated using the 2020 CKD-EPI creatinine equation. This equation utilizes serum creatinine, sex, and age as parameters. The creatinine assay has traceable calibration to isotope dilution-mass spectrometry. Refer to KDIGO guidelines for clinical interpretation. In patients with unstable renal function, e.g. those with acute kidney injury, the eGFR may not accurately reflect actual GFR. Performed By: #### 2 276-4, 95104-7, 2132-03, 2284-02 #### [facility] CLIA [id number] [address] [address] [place] Glucose [Mass/Vol] 112 mg/dL High 74-99 [facility] Comment on above: Order Comment: Fabricio tapia Type: BLOOD SPECIMEN Ordering Facility: [facility] Address: [address] [place] [address] Result Comment: The [place] Diabetes Association (ADA) provides guidance for cutoff values for fasting glucose and random glucose. The ADA defines fasting as no caloric intake for at least 8 hours. Fasting plasma glucose results between 100 to 125 mg/dL indicate increased risk for diabetes (prediabetes). Fasting plasma glucose results greater than or equal to 126 mg/dL meet the criteria for diagnosis of diabetes. In the absence of unequivocal hyperglycemia, results should be confirmed by repeat testing. In a patient with classic symptoms of hyperglycemia or hyperglycemic crisis, random plasma glucose results greater than or equal to 200 mg/dL meet the criteria for diagnosis of diabetes. Reference: Standards of Medical Care in Diabetes 2016, [place] [employer]. Diabetes Care. 2016.39(Suppl 1). Performed By: #### 2 276-4, 78740-6, 2132-03, 2284-02 #### [facility] CLIA [id number] [address] [address] [place] Potassium [Moles/Vol] 3.7 mmol/L Normal 3.7-5.1 [facility] Comment on above: Order Comment: Fabricio tapia Type: BLOOD SPECIMEN Ordering Facility: [facility] Address: [address] [place] [address] Performed By: #### 2 276-4, 27766-9, 2132-03, 2284-02 #### [facility] CLIA [id number] [address] [address] [place] Protein [Mass/Vol] 7.7 g/dL Normal 6.3-8.0 [facility] Comment on above: Order Comment: Speci men Type: BLOOD SPECIMEN Ordering Facility: [facility] Address: [place] [address] Performed By: #### 2 276-4, 14943-3, 2132-03, 2284-02 #### [facility] CLIA [id number] [address] [place] [address] [place] Sodium [Moles/Vol] 135 mmol/L Low 136-144 [facility] Comment on above: Order Comment: Speci men Type: BLOOD SPECIMEN Ordering Facility: [facility] Address: [place] [address] Performed By: #### 2 276-4, 57618-1, 2132-03, 2284-02 #### [facility] CLIA [id number] [address] [place] [address] [place] Urea nitrogen [Mass/Vol] 22 mg/dL High 7-21 [facility] Comment on above: Order Comment: Speci men Type: BLOOD SPECIMEN Ordering Facility: [facility] Address: [place] [address] Performed By: #### 2 276-4, 04567-8, 2132-03, 2284-02 #### [facility] CLIA [id number] [facility] [place] [id number] [place] MAGNESIUM BLDon 12-17-2021 Magnesium [Mass/Vol] 2.3 mg/dL 1.7 - 2.3 mg/dL [facility] Vital Signs Date Time Vital Sign Value Performing Clinician Facility 06-05-2023 10:08-0500 Body height 158.8 cm Ana Hernandez PA-C Work Phone: [facility] 06-05-2023 10:08-0500 Body temperature 97 [degF] Ana Hernandez PA-C Work Phone: [facility] 06-05-2023 10:08-0500 Body weight 87.27 kg Ana Mary PA-C Work Phone: [facility] 06-05-2023 10:08-0500 Diastolic blood pressure 84 mm[Hg] Ana Mary PA-C Work Phone: [facility] 06-05-2023 10:08-0500 Heart rate 76 /min Ana Mary PA-C Work Phone: [facility] 06-05-2023 10:08-0500 Respiratory rate 16 /min Ana Mary PA-C Work Phone: [facility] 06-05-2023 10:08-0500 SaO2% (BldA) [Mass fraction] 97 % Ana Mary PA-C Work Phone: [facility] 06-05-2023 10:08-0500 Systolic blood pressure 152 mm[Hg] Ana Mary PA-C Work Phone: [facility] 04-20-2023 10:11-0400 Body height 158.8 cm Rinku Ramsey MD Work Phone: [facility] 04-20-2023 10:11-0400 Body temperature 97.81 [degF] Rinku Ramsey MD Work Phone: [facility] 04-20-2023 10:11-0400 Body weight 89 kg Rinku Ramsey MD Work Phone: [facility] 04-20-2023 10:11-0400 Diastolic blood pressure 87 mm[Hg] Rinku Ramsey MD Work Phone: [facility] 04-20-2023 10:11-0400 Heart rate 72 /min Rinku Ramsey MD Work Phone: [facility] 04-20-2023 10:11-0400 Respiratory rate 18 /min Rinku Ramsey MD Work Phone: [facility] 04-20-2023 10:11-0400 SaO2% (BldA) [Mass fraction] 98 % Rinku Ramsey MD Work Phone: [facility] 04-20-2023 10:11-0400 Systolic blood pressure 168 mm[Hg] Rinku Ramsey MD Work Phone: [facility] 03-09-2023 14:03-0400 Body height 158.8 cm Rinku Ramsey MD Work Phone: [facility] 03-09-2023 14:03-0400 Body temperature 97.59 [degF] Rinku Ramsey MD Work Phone: [facility] 03-09-2023 14:03-0400 Body weight 88.27 kg Rinku Ramsey MD Work Phone: [facility] 03-09-2023 14:03-0400 Diastolic blood pressure 76 mm[Hg] Rinku Ramsey MD Work Phone: [facility] 03-09-2023 14:03-0400 Heart rate 71 /min Rinku Ramsey MD Work Phone: [facility] 03-09-2023 14:03-0400 Respiratory rate 16 /min Rinku Ramsey MD Work Phone: [facility] 03-09-2023 14:03-0400 SaO2% (BldA) [Mass fraction] 95 % Rinku Ramsey MD Work Phone: [facility] 03-09-2023 14:03-0400 Systolic blood pressure 143 mm[Hg] Rinku Ramsey MD Work Phone: [facility] 01-26-2023 14:48-0400 Body height 158.8 cm Rinku Ramsey MD Work Phone: [facility] 01-26-2023 14:48-0400 Body temperature 97.59 [degF] Rinku Ramsey MD Work Phone: [facility] 01-26-2023 14:48-0400 Body weight 89.09 kg Rinku Ramsey MD Work Phone: [facility] 01-26-2023 14:48-0400 Diastolic blood pressure 77 mm[Hg] Rinku Ramsey MD Work Phone: [facility] 01-26-2023 14:48-0400 Heart rate 75 /min Rinku Ramsey MD Work Phone: [facility] 01-26-2023 14:48-0400 Respiratory rate 18 /min Rinku Ramsey MD Work Phone: [facility] 01-26-2023 14:48-0400 SaO2% (BldA) [Mass fraction] 98 % Rinku Ramsey MD Work Phone: [facility] 01-26-2023 14:48-0400 Systolic blood pressure 147 mm[Hg] Rinku Ramsey MD Work Phone: [facility] 12-15-2022 13:52-0400 Body height 158.8 cm Rinku Ramsey MD Work Phone: [facility] 12-15-2022 13:52-0400 Body temperature 97.5 [degF] Rinku Ramesy MD Work Phone: [facility] 12-15-2022 13:52-0400 Body weight 87.36 kg Rinku Ramsey MD Work Phone: [facility] 12-15-2022 13:52-0400 Diastolic blood pressure 8 mm[Hg] Rinku Ramsey MD Work Phone: [facility] 12-15-2022 13:52-0400 Heart rate 64 /min Rinku Ramsey MD Work Phone: [facility] 12-15-2022 13:52-0400 Respiratory rate 16 /min Rinku Ramsey MD Work Phone: [facility] 12-15-2022 13:52-0400 SaO2% (BldA) [Mass fraction] 96 % Rinku Ramsey MD Work Phone: [facility] 12-15-2022 13:52-0400 Systolic blood pressure 152 mm[Hg] Rinku Ramsey MD Work Phone: [facility] 10-27-2022 14:56-0400 Body height 158.8 cm Rinku Ramsey MD Work Phone: [facility] 10-27-2022 14:56-0400 Body temperature 97.39 [degF] Rinku Ramsey MD Work Phone: [facility] 10-27-2022 14:56-0400 Body weight 87.36 kg Rinku Ramsey MD Work Phone: [facility] 10-27-2022 14:56-0400 Diastolic blood pressure 84 mm[Hg] Rinku Ramsey MD Work Phone: [facility] 10-27-2022 14:56-0400 Heart rate 71 /min Rinku Ramsey MD Work Phone: [facility] 10-27-2022 14:56-0400 Respiratory rate 18 /min Rinku Ramsey MD Work Phone: [facility] 10-27-2022 14:56-0400 SaO2% (BldA) [Mass fraction] 98 % Rinku Ramsey MD Work Phone: [facility] 10-27-2022 14:56-0400 Systolic blood pressure 164 mm[Hg] Rinku Ramsey MD Work Phone: [facility] 09-15-2022 15:20-0500 Body height 158.8 cm Rinku Ramsey MD Work Phone: [facility] 09-15-2022 15:20-0500 Body temperature 97.11 [degF] Rinku Ramsey MD Work Phone: [facility] 09-15-2022 15:20-0500 Body weight 86.36 kg Rinku Ramsey MD Work Phone: [facility] 09-15-2022 15:20-0500 Diastolic blood pressure 89 mm[Hg] Rinku Ramsey MD Work Phone: [facility] 09-15-2022 15:20-0500 Heart rate 75 /min Rinku Ramsey MD Work Phone: [facility] 09-15-2022 15:20-0500 Respiratory rate 16 /min Rinku Ramsey MD Work Phone: [facility] 09-15-2022 15:20-0500 SaO2% (BldA) [Mass fraction] 97 % Rinku Ramsey MD Work Phone: [facility] 09-15-2022 15:20-0500 Systolic blood pressure 158 mm[Hg] Rinku Ramsey MD Work Phone: [facility] 09-07-2022 10:20-0500 Body height 160.02 cm Gilson Tyrel Other [facility] Other 09-07-2022 10:20-0500 Body mass index (BMI) [Ratio] 33.69 kg/m2 Gilson Tyrel Other [facility] Other 09-07-2022 10:20-0500 Body temperature 96.4 [degF] Gilson Tyrel Other [facility] Other 09-07-2022 10:20-0500 Body weight 86.27 kg Gilson Tryel Other [facility] Other 09-07-2022 10:20-0500 Diastolic blood pressure 99 mm[Hg] Gilson Tyrel Other [facility] Other 09-07-2022 10:20-0500 Respiratory rate 18 /min Gilson Tyrel Other [facility] Other 09-07-2022 10:20-0500 SaO2% (BldA) [Mass fraction] 98 % Gilson Tyrel Other [facility] Other 09-07-2022 10:20-0500 Systolic blood pressure 180 mm[Hg] Gilson Tyrel Other [facility] Other 08-04-2022 13:58-0500 Body height 158.8 cm Jayden Connelly APRN.[employer] Work Phone: [facility] 08-04-2022 13:58-0500 Body temperature 97.39 [degF] Jayden Connelly APRN.[employer] Work Phone: [facility] 08-04-2022 13:58-0500 Body weight 85.37 kg Jayden Connelly APRN.[employer] Work Phone: [facility] 08-04-2022 13:58-0500 Diastolic blood pressure 80 mm[Hg] Jayden Connelly APRN.[employer] Work Phone: [facility] 08-04-2022 13:58-0500 Heart rate 76 /min Jayden Connelly APRN.[employer] Work Phone: [facility] 08-04-2022 13:58-0500 Respiratory rate 16 /min Jayden Connelly APRN.[employer] Work Phone: [facility] 08-04-2022 13:58-0500 SaO2% (BldA) [Mass fraction] 98 % Jayden Connelly APRN.[employer] Work Phone: [facility] 08-04-2022 13:58-0500 Systolic blood pressure 149 mm[Hg] Jayden Connelly APRN.[employer] Work Phone: [facility] 06-23-2022 13:57-0500 Body height 158.8 cm Rinku Ramsey MD Work Phone: [facility] 06-23-2022 13:57-0500 Body temperature 97.59 [degF] Rinku Ramsey MD Work Phone: [facility] 06-23-2022 13:57-0500 Body weight 88.27 kg Rinku Ramsey MD Work Phone: [facility] 06-23-2022 13:57-0500 Diastolic blood pressure 88 mm[Hg] Rinku Ramsey MD Work Phone: [facility] 06-23-2022 13:57-0500 Heart rate 66 /min Rinku Ramsey MD Work Phone: [facility] 06-23-2022 13:57-0500 Respiratory rate 16 /min Rinku Ramsey MD Work Phone: [facility] 06-23-2022 13:57-0500 SaO2% (BldA) [Mass fraction] 100 % Rinku Ramsey MD Work Phone: [facility] 06-23-2022 13:57-0500 Systolic blood pressure 156 mm[Hg] Rinku Ramsey MD Work Phone: [facility] 05-12-2022 14:19-0400 Diastolic blood pressure 80 mm[Hg] Jayden Connelly APRN.[employer] Work Phone: [facility] 05-12-2022 14:19-0400 Systolic blood pressure 158 mm[Hg] Jayden Connelly APRN.[employer] Work Phone: [facility] 05-12-2022 14:13-0400 Body height 158.8 cm Jayden Connelly APRN.[employer] Work Phone: [facility] 05-12-2022 14:13-0400 Body temperature 97.81 [degF] Jayden Connelly APRN.[employer] Work Phone: [facility] 05-12-2022 14:13-0400 Body weight 88.27 kg Jayden Connelly APRN.[employer] Work Phone: [facility] 05-12-2022 14:13-0400 Heart rate 76 /min Jayden Connelly FINANCIAL SERVICES REPRESENTATIVE.[employer] Work Phone: [facility] 05-12-2022 14:13-0400 Respiratory rate 18 /min Jayden Connelly APRN.[employer] Work Phone: [facility] 05-12-2022 14:13-0400 SaO2% (BldA) [Mass fraction] 98 % Jayden Connelly FINANCIAL SERVICES REPRESENTATIVE.[employer] Work Phone: [facility] 03-31-2022 13:55-0400 Body height 158.8 cm Rinku Ramsey MD Work Phone: [facility] 03-31-2022 13:55-0400 Body temperature 97.7 [degF] Rinku Ramsey MD Work Phone: [facility] 03-31-2022 13:55-0400 Body weight 88.72 kg Rinku Ramsey MD Work Phone: [facility] 03-31-2022 13:55-0400 Diastolic blood pressure 83 mm[Hg] Rinku Ramsey MD Work Phone: [facility] 03-31-2022 13:55-0400 Heart rate 66 /min Rinku Ramsey MD Work Phone: [facility] 03-31-2022 13:55-0400 Respiratory rate 16 /min Rinku Ramsey MD Work Phone: [facility] 03-31-2022 13:55-0400 SaO2% (BldA) [Mass fraction] 95 % Rinku Ramsey MD Work Phone: [facility] 03-31-2022 13:55-0400 Systolic blood pressure 173 mm[Hg] Rinku Ramsey MD Work Phone: [facility] 02-11-2022 13:41-0400 Body height 158.8 cm Jayden Connelly APRN.[employer] Work Phone: [facility] 02-11-2022 13:41-0400 Body temperature 97.3 [degF] Jayden Connelly APRN.[employer] Work Phone: [facility] 02-11-2022 13:41-0400 Body weight 89.18 kg Jayden Connelly APRN.[employer] Work Phone: [facility] 02-11-2022 13:41-0400 Diastolic blood pressure 83 mm[Hg] Jayden Connelly APRN.[employer] Work Phone: [facility] 02-11-2022 13:41-0400 Heart rate 79 /min Jayden Connelly APRN.[employer] Work Phone: [facility] 02-11-2022 13:41-0400 Respiratory rate 16 /min Jayden Connelly APRN.[employer] Work Phone: [facility] 02-11-2022 13:41-0400 SaO2% (BldA) [Mass fraction] 99 % Jayden Connelyl APRN.[employer] Work Phone: [facility] 02-11-2022 13:41-0400 Systolic blood pressure 159 mm[Hg] Jayden Connelly APRN.[employer] Work Phone: [facility] 12-17-2021 14:41-0400 Body height 158.8 cm Jayden Connelly APRN.[employer] Work Phone: [facility] 12-17-2021 14:41-0400 Body temperature 97.3 [degF] Jayden Connelly APRN.[employer] Work Phone: [facility] 12-17-2021 14:41-0400 Body weight 87.64 kg Jayden Connelly APRN.[employer] Work Phone: [facility] 12-17-2021 14:41-0400 Diastolic blood pressure 80 mm[Hg] Jayden Connelly APRN.[employer] Work Phone: [facility] 12-17-2021 14:41-0400 Heart rate 75 /min Jayden Connelly APRN.[employer] Work Phone: [facility] 12-17-2021 14:41-0400 Respiratory rate 16 /min Jayden Connelly APRN.[employer] Work Phone: [facility] 12-17-2021 14:41-0400 SaO2% (BldA) [Mass fraction] 96 % Jayden Connelly APRN.[employer] Work Phone: [facility] 12-17-2021 14:41-0400 Systolic blood pressure 154 mm[Hg] Jayden Connelly APRN.[employer] Work Phone: [facility] 11-10-2021 15:00-0400 Body height 160.02 cm Gilson Tyrel Other [facility] Other 11-10-2021 15:00-0400 Body mass index (BMI) [Ratio] 34.18 kg/m2 Gilson Tyrel Other [facility] Other 11-10-2021 15:00-0400 Body temperature 97.1 [degF] Gilson Tyrel Other [facility] Other 11-10-2021 15:00-0400 Body weight 87.54 kg Gilson Tyrel Other [facility] Other 11-10-2021 15:00-0400 Diastolic blood pressure 70 mm[Hg] Gilson Tyrel Other [facility] Other 11-10-2021 15:00-0400 Respiratory rate 18 /min Gilson Tyrel Other [facility] Other 11-10-2021 15:00-0400 SaO2% (BldA) [Mass fraction] 96 % Gilson Tyrel Other [facility] Other 11-10-2021 15:00-0400 Systolic blood pressure 154 mm[Hg] Gilson Tyrel Other [facility] [employer] Other 10-28-2021 11:27-0400 Body height 158.8 cm Rinku Ramsey MD Work Phone: [facility] 10-28-2021 11:27-0400 Body temperature 97.39 [degF] Rinku Ramsey MD Work Phone: [facility] 10-28-2021 11:27-0400 Body weight 87.82 kg Rinku Ramsey MD Work Phone: [facility] 10-28-2021 11:27-0400 Diastolic blood pressure 91 mm[Hg] Rinku Ramsey MD Work Phone: [facility] 10-28-2021 11:27-0400 Heart rate 75 /min Rinku Ramsey MD Work Phone: [facility] [facility] 10-28-2021 11:27-0400 Respiratory rate 16 /min Rinku Ramsey MD Work Phone: [facility] 10-28-2021 11:27-0400 SaO2% (BldA) [Mass fraction] 96 % Rinku Ramsey MD Work Phone: [facility] 10-28-2021 11:27-0400 Systolic blood pressure 157 mm[Hg] Rinku Ramsey MD Work Phone: [facility] Encounters Encounter Date Encounter Type Care Provider Facility Start: 06-06-2023 End: 06-06-2023 ambulatory STEPHANIE YOSELYN Not Available Start: 06-05-2023 End: 06-05-2023 ambulatory Ana Hernandez PA-C Work Phone: Hematology/Oncology Comment on above: Chronic ITP (idiopat hic thrombocytopenia) (HCC) (Primary Dx); Essential hypertension; Hypertension, unspecified type Start: 06-05-2023 End: 06-05-2023 Patient encounter procedure Ana Hernandez PA-C Work Phone: [facility] Start: 05-01-2023 Refill Krista mueller [facility] Work Phone: Hematology/Oncology Comment on above: Refill Request Start: 04-20-2023 End: 04-20-2023 ambulatory RINKU RAMSEY Facility:[facility] Start: 04-20-2023 End: 04-20-2023 Office outpatient visit 25 minutes Rinku Ramsey MD Work Phone: Hematology/Oncology Comment on above: Chronic ITP (idiopat hic thrombocytopenia) (HCC) (Primary Dx); Essential hypertension Start: 04-19-2023 Telephone encounter Rinku hicks MD Work Phone: Hematology/Oncology Comment on above: Lab Orders Start: 04-05-2023 End: 04-05-2023 ambulatory Gilson Tyrel Other [facility] Other Start: 04-05-2023 Telephone encounter Gilson Tyrel [facility] Start: 03-14-2023 End: 03-14-2023 ambulatory Gilson Tyrel Other [facility] Other Start: 03-14-2023 Telephone encounter Gilson Tyrel [facility] Start: 03-09-2023 End: 03-09-2023 ambulatory RINKU ROXY Facility:[facility] Start: 03-09-2023 End: 03-09-2023 Office outpatient visit 15 minutes Rinku Ramsey MD Work Phone: Hematology/Oncology Comment on above: Chronic ITP (idiopat hic thrombocytopenia) (HCC) (Primary Dx); Essential hypertension; Obstructive sleep apnea syndrome; Systemic lupus erythematosus, unspecified SLE type, unspecified organ involvement status (HCC) Start: 01-26-2023 End: 01-26-2023 ambulatory RINKU ROXY Facility:[facility] Start: 01-26-2023 End: 01-26-2023 Office outpatient visit 15 minutes Rinku Ramsey MD Work Phone: Hematology/Oncology Comment on above: Chronic ITP (idiopat hic thrombocytopenia) (HCC) (Primary Dx); Hypertension, unspecified type; Obstructive sleep apnea syndrome Start: 12-15-2022 End: 12-15-2022 ambulatory RINKU RAMSEY Facility:[facility] Start: 12-15-2022 End: 12-15-2022 Office outpatient visit 15 minutes Rinku Ramsey MD Work Phone: Hematology/Oncology Comment on above: Chronic ITP (idiopat hic thrombocytopenia) (HCC) (Primary Dx) Start: 10-27-2022 End: 10-27-2022 ambulatory SHAIKH KALLI Facility:[facility] Start: 10-27-2022 End: 10-27-2022 Office outpatient visit 15 minutes Rinku Ramsey MD Work Phone: Hematology/Oncology Comment on above: Chronic ITP (idiopat hic thrombocytopenia) (HCC) (Primary Dx) Start: 10-21-2022 Refill Rinku lawrence MD Work Phone: Hematology/Oncology Comment on above: Refill Request Start: 09-23-2022 Refill Rinku lawrence MD Work Phone: Hematology/Oncology Comment on above: Refill Request Start: 09-15-2022 End: 09-15-2022 ambulatory RINKU RAMSEY Facility:[facility] Start: 09-15-2022 End: 09-15-2022 Office outpatient visit 15 minutes Rinku Ramsey MD Work Phone: Hematology/Oncology Comment on above: Chronic ITP (idiopat hic thrombocytopenia) (HCC) (Primary Dx); Obstructive sleep apnea syndrome Start: 09-15-2022 Refill Rinku lawrence MD Work Phone: Hematology/Oncology Comment on above: Refill Request Start: 09-07-2022 End: 09-07-2022 ambulatory Gilson Sarah Other [facility] Other Start: 09-07-2022 Office outpatient visit 25 minutes Krzysztof [facility]ERRERA [facility] Start: 08-29-2022 End: 08-29-2022 ambulatory NON STAFF Facility:[facility] Start: 08-29-2022 End: 08-29-2022 ambulatory NON STAFF [facility] Work Phone: Start: 08-29-2022 End: 08-29-2022 Patient encounter procedure MD Gilson Sarah Work Phone: [facility] [place] Work Phone: Start: 08-15-2022 Refill Jayden Connelly APRN.[employer] Work Phone: Hematology/Oncology Comment on above: Refill Request Start: 08-05-2022 Refill Jayden Connelly APRN.[employer] Work Phone: Hematology/Oncology Comment on above: Refill Request Start: 08-04-2022 End: 08-04-2022 ambulatory Jayden Connelly APRN.[employer] Work Phone: Hematology/Oncology Comment on above: Chronic ITP (idiopat hic thrombocytopenia) (HCC) (Primary Dx); Obstructive sleep apnea syndrome; Hypertension, unspecified type; Systemic lupus erythematosus, unspecified SLE type, unspecified organ involvement status (HCC); Malaise and fatigue; Skin lesion of right lower extremity Start: 08-04-2022 End: 08-04-2022 Patient encounter procedure Jayden Connelly APRN.[employer] Work Phone: [facility] Start: 08-04-2022 Telephone encounter Jayden christiansen APRN.[employer] [facility] Comment on above: Referral Information (Dermatology) Start: 07-24-2022 Refill Jayden Connelly APRN.[employer] Work Phone: Hematology/Oncology Comment on above: Refill Request Start: 07-13-2022 Refill Rinku lawrence MD Work Phone: Hematology/Oncology Comment on above: Refill Request Start: 06-23-2022 End: 06-23-2022 ambulatory RINKU RAMSEY Facility:[facility] Start: 06-23-2022 End: 06-23-2022 ambulatory Rinku Ramsey MD Work Phone: Hematology/Oncology Comment on above: Chronic ITP (idiopat hic thrombocytopenia) (HCC) (Primary Dx); Hypertension, unspecified type; Obstructive sleep apnea syndrome; Systemic lupus erythematosus, unspecified SLE type, unspecified organ involvement status (HCC) Start: 06-23-2022 End: 06-23-2022 Patient encounter procedure Rinku Ramsey MD Work Phone: [place] Start: 06-23-2022 Refill Rinku lawrence MD Work Phone: Hematology/Oncology Comment on above: Refill Request Start: 06-15-2022 Refill Jayden Connelly APRN.[employer] Work Phone: Hematology/Oncology Comment on above: Refill Request Start: 05-20-2022 Refill Rinku lawrence MD Work Phone: Hematology/Oncology Comment on above: Refill Request Start: 05-12-2022 End: 05-12-2022 ambulatory Jayden Connelly APRN.[employer] Work Phone: Hematology/Oncology Comment on above: Chronic ITP (idiopat hic thrombocytopenia) (HCC) (Primary Dx); Obstructive sleep apnea syndrome; Essential hypertension Start: 05-12-2022 End: 05-12-2022 Patient encounter procedure Jayden Connelly APRN.[employer] Work Phone: [facility] Start: 04-24-2022 Refill Jayden Connelly FINANCIAL SERVICES REPRESENTATIVE.[employer] Work Phone: Hematology/Oncology Comment on above: Refill Request Start: 03-31-2022 End: 03-31-2022 ambulatory Rinku Ramsey MD Work Phone: Hematology/Oncology Comment on above: Chronic ITP (idiopat hic thrombocytopenia) (HCC) (Primary Dx); Obstructive sleep apnea syndrome Start: 03-31-2022 End: 03-31-2022 Patient encounter procedure Rinku Ramsey MD Work Phone: [facility] Start: 03-06-2022 Refill Rinku lawrence MD Work Phone: Hematology/Oncology Comment on above: Refill Request Start: 03-05-2022 Refill Jayden Connelly FINANCIAL SERVICES REPRESENTATIVE.[employer] Work Phone: Hematology/Oncology Comment on above: Refill Request Start: 02-11-2022 End: 02-11-2022 ambulatory Jayden Connelly FINANCIAL SERVICES REPRESENTATIVE.[employer] Work Phone: Hematology/Oncology Comment on above: Chronic ITP (idiopat hic thrombocytopenia) (HCC) (Primary Dx); Essential hypertension; Obstructive sleep apnea syndrome; Systemic lupus erythematosus, unspecified SLE type, unspecified organ involvement status (HCC) Start: 02-11-2022 End: 02-11-2022 Patient encounter procedure Jayden Connelly FINANCIAL SERVICES REPRESENTATIVE.[employer] Work Phone: [facility] Start: 02-03-2022 Refill Jayden Connelly FINANCIAL SERVICES REPRESENTATIVE.[employer] Work Phone: Hematology/Oncology Comment on above: Refill Request Start: 01-15-2022 Refill Jayden Connelly FINANCIAL SERVICES REPRESENTATIVE.[employer] Work Phone: Hematology/Oncology Comment on above: Refill Request Start: 01-09-2022 Refill Jayden Connelly FINANCIAL SERVICES REPRESENTATIVE.[employer] Work Phone: Hematology/Oncology Comment on above: Refill Request Start: 12-17-2021 End: 12-17-2021 ambulatory Jayden Connelly FINANCIAL SERVICES REPRESENTATIVE.[employer] Work Phone: Hematology/Oncology Comment on above: Chronic ITP (idiopat hic thrombocytopenia) (HCC) (Primary Dx); Hypertension, unspecified type; Essential hypertension; Obstructive sleep apnea syndrome; Lung nodules; Systemic lupus erythematosus, unspecified SLE type, unspecified organ involvement status (HCC) Start: 12-17-2021 End: 12-17-2021 Patient encounter procedure Jayden Connelly FINANCIAL SERVICES REPRESENTATIVE.[employer] Work Phone: [facility] Start: 11-10-2021 End: 11-10-2021 ambulatory Gilson Sarah Other [facility] Other Start: 11-10-2021 Office outpatient ne w 45 minutes Krzysztof [facility]ERRERA [facility] Start: 10-28-2021 End: 10-28-2021 ambulatory Rinku Ramsey MD Work Phone: Hematology/Oncology Comment on above: Chronic ITP (idiopat hic thrombocytopenia) (HCC) (Primary Dx); Essential hypertension; Obstructive sleep apnea syndrome; Lung nodules; Systemic lupus erythematosus, unspecified SLE type, unspecified organ involvement status (HCC) Start: 10-28-2021 End: 10-28-2021 Patient encounter procedure Rinku Ramsey MD Work Phone: [place] Start: 10-25-2021 ambulatory Mary Ellen Tidwell MA [facility] Comment on above: Population Health Na vigation Outreach (ACO PCP) Start: 10-19-2021 Refill Jayden Connelly APRN.[employer] Work Phone: Hematology/Oncology Comment on above: Refill Request Start: 05-07-2021 Telephone encounter Luanne Salcedo [facility] Work Phone: [facility] Comment on above: Medication Follow-up ([place] free drug application faxed) Start: 05-24-2016 End: 05-25-2016 Ambulatory COTY WRIGHT Facility:[facility] Procedures Date Procedure Procedure Detail Performing Clinician Start: 08-29-2022 Ultrasonography of b ilateral kidneys MD Gilson Sarah Work Phone: Start: 07-25-2022 Colonoscopy Jayden christiansen FINANCIAL SERVICES REPRESENTATIVE.[employer] Work Phone: Start: 02-11-2022 Adult depression scr eening assessment Jayden Connelly FINANCIAL SERVICES REPRESENTATIVE.[employer] Work Phone: Start: 08-05-2021 Adult depression scr eening assessment Jayden Connelly FINANCIAL SERVICES REPRESENTATIVE.[employer] Work Phone: Start: 03-30-2017 Lipid 1996 panel - S henok or Plasma Rinku Ramsey MD Work Phone: Plan of Treatment Date Care Activity Detail Author Start: 06-05-2026 Diabetes Screening Diabetes Screening [facility] Start: 04-20-2026 Diabetes Screening Diabetes Screening [facility] Start: 03-09-2026 DIABETES SCREEN DIABETES SCREEN [facility] Start: 03-09-2026 Diabetes Screening Diabetes Screening [facility] Start: 01-26-2026 DIABETES SCREEN DIABETES SCREEN [facility] Start: 12-15-2025 DIABETES SCREEN DIABETES SCREEN [facility] Start: 10-27-2025 DIABETES SCREEN DIABETES SCREEN [facility] Start: 09-15-2025 DIABETES SCREEN DIABETES SCREEN [facility] Start: 08-04-2025 DIABETES SCREEN DIABETES SCREEN [facility] Start: 06-23-2025 DIABETES SCREEN DIABETES SCREEN [facility] Start: 05-12-2025 DIABETES SCREEN DIABETES SCREEN [facility] Start: 03-31-2025 DIABETES SCREEN DIABETES SCREEN [facility] Start: 02-11-2025 DIABETES SCREEN DIABETES SCREEN [facility] Start: 12-17-2024 DIABETES SCREEN DIABETES SCREEN [facility] Start: 10-28-2024 DIABETES SCREEN DIABETES SCREEN [facility] Start: 09-16-2024 DIABETES SCREEN DIABETES SCREEN [facility] Start: 07-25-2023 Colonoscopy COLONOSCOPY [facility] Start: 07-25-2023 COLORECTAL CANCER SCREENING COLORECTAL CANCER SCREENING [facility] Start: 07-21-2023 Covid-19 Vaccine () Covid-19 Vaccine () [facility] Start: 07-17-2023 End: 10-16-2023 CBC W Auto Differential panel - Blood CBC + DIFF Lab Routine Chronic ITP (idiopathic thrombocytopenia) (HCC) Essential hypertension Expected: 07/17/2023 (Approximate), Expires: 10/16/[address] [facility] Work Phone: Comment on above: Expected: 07/17/2023 (Approximate), Expires: 10/16/2023 Start: 07-17-2023 End: 10-16-2023 Comprehensive metabolic 2000 panel - Serum or Plasma COMP METABOLIC PANEL Lab Routine Chronic ITP (idiopathic thrombocytopenia) (HCC) Essential hypertension Expected: 07/17/2023 (Approximate), Expires: 10/16/[address] [facility] Work Phone: Comment on above: Expected: 07/17/2023 (Approximate), Expires: 10/16/2023 Start: 04-20-2023 End: 04-19-2024 CBC W Auto Differential panel - Blood CBC + DIFF Lab Routine Chronic ITP (idiopathic thrombocytopenia) (HCC) Expected: 04/20/2023 (Approximate), Expires: 04/19/[address] [facility] Work Phone: Comment on above: Expected: 04/20/2023 (Approximate), Expires: 04/19/2024 Start: 04-20-2023 End: 04-19-2024 Comprehensive metabolic 2000 panel - Serum or Plasma COMP METABOLIC PANEL Lab Routine Chronic ITP (idiopathic thrombocytopenia) (HCC) Expected: 04/20/2023 (Approximate), Expires: 04/19/[address] [facility] Work Phone: Comment on above: Expected: 04/20/2023 (Approximate), Expires: 04/19/2024 Start: 04-20-2023 End: 04-19-2024 Lactate dehydrogenase [Enzymatic activity/volume] in Serum or Plasma LD LACTATE DEHYDRO Lab Routine Chronic ITP (idiopathic thrombocytopenia) (HCC) Expected: 04/20/2023 (Approximate), Expires: 04/19/[address] [facility] Work Phone: Comment on above: Expected: 04/20/2023 (Approximate), Expires: 04/19/2024 Start: 03-10-2023 Covid-19 Vaccine ( season) Covid-19 Vaccine ( season) [facility] Start: 03-10-2023 Influenza vaccination C [facility] Start: 02-11-2023 Adult depression screening assessment DEPRESSION SCREENING [facility] Start: 08-05-2022 Adult depression screening assessment DEPRESSION SCREENING [facility] Start: 08-04-2022 End: 06-23-2023 CBC W Auto Differential panel - Blood CBC + DIFF Lab Routine Chronic ITP (idiopathic thrombocytopenia) (HCC) Expected: 08/04/2022 (Approximate), Expires: 06/23/[address] [facility] Work Phone: Comment on above: Expected: 08/04/2022 (Approximate), Expires: 06/23/2023 Start: 08-04-2022 End: 06-23-2023 Comprehensive metabolic 2000 panel - Serum or Plasma COMP METABOLIC PANEL Lab Routine Chronic ITP (idiopathic thrombocytopenia) (HCC) Expected: 08/04/2022 (Approximate), Expires: 06/23/[address] [facility] Work Phone: Comment on above: Expected: 08/04/2022 (Approximate), Expires: 06/23/2023 Start: 08-04-2022 End: 06-23-2023 Lactate dehydrogenase [Enzymatic activity/volume] in Serum or Plasma LD LACTATE DEHYDRO Lab Routine Chronic ITP (idiopathic thrombocytopenia) (HCC) Expected: 08/04/2022 (Approximate), Expires: 06/23/[address] [facility] Work Phone: Comment on above: Expected: 08/04/2022 (Approximate), Expires: 06/23/2023 Start: 08-04-2022 End: 10-04-2022 Nuclear Ab [Presence] in Serum by Immunoassay RAAD PANEL BLOOD SCRN Lab Routine Systemic lupus erythematosus, unspecified SLE type, unspecified organ involvement status (HCC) Expected: 08/04/2022 (Approximate), Expires: 10/04/[address] [facility] Work Phone: Comment on above: Expected: 08/04/2022 (Approximate), Expires: 10/04/2022 Start: 07-10-2022 ADVANCE DIRECTIVE DISCUSSION ADVANCE DIRECTIVE DISCUSSION [facility] Start: 07-10-2022 DEPRESSION ASSESSMENT DEPRESSION ASS ESSMENT [facility] Start: 06-08-2022 COVID-19 VACCINE (5 - Booster for Moderna series) COVID-19 VACCINE (5 - Booster for Moderna series) [facility] Start: 04-02-2022 COVID-19 VACCINE (5 - Booster for Moderna series) COVID-19 VACCINE (5 - Booster for Moderna series) [facility] Start: 04-02-2022 COVID-19 VACCINE (5 - Moderna risk series) COVID-19 VACCINE (5 - Moderna risk series) [facility] Start: 03-30-2022 Lipid 1996 panel - Serum or Plasma Lipid Screening [facility] Start: 03-30-2022 LIPID SCREEN LIPID SCREEN [facility] Start: 03-25-2022 End: 05-25-2022 CBC W Auto Differential panel - Blood CBC + DIFF Lab Routine Chronic ITP (idiopathic thrombocytopenia) (HCC) Essential hypertension Obstructive sleep apnea syndrome Systemic lupus erythematosus, unspecified SLE type, unspecified organ involvement status (HCC) Expected: 03/25/2022, Expires: 05/25/[address] [facility] Work Phone: Comment on above: Expected: 03/25/2022 , Expires: 05/25/2022 Start: 03-25-2022 End: 05-25-2022 Comprehensive metabolic 2000 panel - Serum or Plasma COMP METABOLIC PANEL Lab Routine Chronic ITP (idiopathic thrombocytopenia) (HCC) Essential hypertension Obstructive sleep apnea syndrome Systemic lupus erythematosus, unspecified SLE type, unspecified organ involvement status (HCC) Expected: 03/25/2022, Expires: 05/25/[address] [facility] Work Phone: Comment on above: Expected: 03/25/2022 , Expires: 05/25/2022 Start: 03-10-2022 Influenza vaccination INFLUENZA (#1) [facility] Start: 01-28-2022 End: 03-30-2022 CBC W Auto Differential panel - Blood CBC + DIFF Lab Routine Hypertension, unspecified type Chronic ITP (idiopathic thrombocytopenia) (HCC) Essential hypertension Obstructive sleep apnea syndrome Lung nodules Systemic lupus erythematosus, unspecified SLE type, unspecified organ involvement status (HCC) Expected: 01/28/2022, Expires: 03/30/[address] [facility] Work Phone: Comment on above: Expected: 01/28/2022 , Expires: 03/30/2022 Start: 01-28-2022 End: 03-30-2022 Comprehensive metabolic 2000 panel - Serum or Plasma COMP METABOLIC PANEL Lab Routine Hypertension, unspecified type Chronic ITP (idiopathic thrombocytopenia) (HCC) Essential hypertension Obstructive sleep apnea syndrome Lung nodules Systemic lupus erythematosus, unspecified SLE type, unspecified organ involvement status (HCC) Expected: 01/28/2022, Expires: 03/30/[address] [facility] Work Phone: Comment on above: Expected: 01/28/2022 , Expires: 03/30/2022 Start: 01-28-2022 End: 03-30-2022 Lactate dehydrogenase [Enzymatic activity/volume] in Serum or Plasma LD LACTATE DEHYDRO Lab Routine Hypertension, unspecified type Chronic ITP (idiopathic thrombocytopenia) (HCC) Essential hypertension Obstructive sleep apnea syndrome Lung nodules Systemic lupus erythematosus, unspecified SLE type, unspecified organ involvement status (HCC) Expected: 01/28/2022, Expires: 03/30/[address] [facility] Work Phone: Comment on above: Expected: 01/28/2022 , Expires: 03/30/2022 Start: 12-09-2021 End: 10-28-2022 CBC W Auto Differential panel - Blood CBC + DIFF Lab Routine Chronic ITP (idiopathic thrombocytopenia) (HCC) Expected: 12/09/2021 (Approximate), Expires: 10/28/[address] [facility] Work Phone: Comment on above: Expected: 12/09/2021 (Approximate), Expires: 10/28/2022 Start: 12-09-2021 End: 10-28-2022 Comprehensive metabolic 2000 panel - Serum or Plasma COMP METABOLIC PANEL Lab Routine Chronic ITP (idiopathic thrombocytopenia) (HCC) Expected: 12/09/2021 (Approximate), Expires: 10/28/[address] [facility] Work Phone: Comment on above: Expected: 12/09/2021 (Approximate), Expires: 10/28/2022 Start: 12-09-2021 End: 10-28-2022 Lactate dehydrogenase [Enzymatic activity/volume] in Serum or Plasma LD LACTATE DEHYDRO Lab Routine Chronic ITP (idiopathic thrombocytopenia) (HCC) Expected: 12/09/2021 (Approximate), Expires: 10/28/[address] [facility] Work Phone: Comment on above: Expected: 12/09/2021 (Approximate), Expires: 10/28/2022 Start: 09-14-2021 COVID-19 VACCINE (4 - Booster for Moderna series) COVID-19 VACCINE (4 - Booster for Moderna series) [facility] Start: 07-10-2021 ADVANCE DIRECTIVE DISCUSSION ADVANCE DIRECTIVE DISCUSSION [facility] Start: 07-10-2021 DEPRESSION ASSESSMENT DEPRESSION ASS ESSMENT [facility] Start: 12-07-2015 BONE DENSITY BONE DENSITY [facility] Start: 12-07-2015 Bone Density Screening Bone Density Screening [facility] Start: 2010 RSV Vaccine (1 - 1-d ose 60+ series) RSV Vaccine (1 - 1-dose 60+ series) [facility] Start: 2000 SHINGRIX VACCINE (1 of 2) SHINGRIX VACCINE (1 of 2) [facility] Start: 12-07-1995 COLOGUARD (FIT-DNA) COLOGUARD (FIT-D NA) [facility] Start: 12-07-1995 Colonoscopy COLONOSCOPY [facility] Start: 12-07-1995 COLORECTAL CANCER SCREENING COLORECTAL CANCER SCREENING [facility] Start: 12-07-[address] COLONOGRAPHY [facility] Start: 12-07-1995 FECAL OCCULT BLOOD FECAL OCCULT BLOO D [facility] Start: 12-07-1995 SIGMOIDOSCOPY SIGMOIDOSCOPY [facility] Start: 1990 Mammography [facility] Start: 1969 SHINGRIX VACCINE (1 of 2) SHINGRIX VACCINE (1 of 2) [facility] Start: 1969 Urine microalbumin profile [facility] Start: 1968 ANNUAL PCP TEAM BUILDING RENTAL SUPERINTENDENT UBALDO DISEASE VISIT ANNUAL PCP TEAM CHRONIC DISEASE VISIT [facility] Start: 1968 BP CONTROLLED (<130/80) BP CONTROLLE D (<130/80) [facility] End: 03-31-2023 CBC W Auto Differential panel - Blood CBC + DIFF Lab Routine Chronic ITP (idiopathic thrombocytopenia) (HCC) Obstructive sleep apnea syndrome Every 6 weeks for 9 Occurrences starting 03/31/2022 until 03/31/[address] [facility] Work Phone: Comment on above: Every 6 weeks for 9 Occurrences starting 03/31/2022 until 03/31/2023 End: 04-19-2024 CBC W Auto Differential panel - Blood CBC + DIFF Lab Routine Chronic ITP (idiopathic thrombocytopenia) (HCC) Every 6 weeks for 9 Occurrences starting 04/20/2023 until 04/19/[address] [facility] Work Phone: Comment on above: Every 6 weeks for 9 Occurrences starting 04/20/2023 until 04/19/2024 End: 04-19-2024 Cobalamin (Vitamin B12) [Mass/volume] in Serum or Plasma VITAMIN B12 BLOOD Lab Routine Chronic ITP (idiopathic thrombocytopenia) (HCC) Every 6 weeks for 9 Occurrences starting 04/20/2023 until 04/19/[address] [facility] Work Phone: Comment on above: Every 6 weeks for 9 Occurrences starting 04/20/2023 until 04/19/2024 End: 03-31-2023 Comprehensive metabolic 2000 panel - Serum or Plasma COMP METABOLIC PANEL Lab Routine Chronic ITP (idiopathic thrombocytopenia) (HCC) Obstructive sleep apnea syndrome Every 6 weeks for 9 Occurrences starting 03/31/2022 until 03/31/[address] [facility] Work Phone: Comment on above: Every 6 weeks for 9 Occurrences starting 03/31/2022 until 03/31/2023 End: 04-19-2024 Comprehensive metabolic 2000 panel - Serum or Plasma COMP METABOLIC PANEL Lab Routine Chronic ITP (idiopathic thrombocytopenia) ([facility]) Every 6 weeks for 9 Occurrences starting 04/20/2023 until 04/19/[address] [facility] Work Phone: Comment on above: Every 6 weeks for 9 Occurrences starting 04/20/2023 until 04/19/2024 End: 04-19-2024 Ferritin [Mass/volume] in Serum or Plasma FERRITIN BLD Lab Routine Chronic ITP (idiopathic thrombocytopenia) (HCC) Every 6 weeks for 9 Occurrences starting 04/20/2023 until 04/19/[address] [facility] Work Phone: Comment on above: Every 6 weeks for 9 Occurrences starting 04/20/2023 until 04/19/2024 End: 04-19-2024 Folate [Mass/volume] in Serum or Plasma FOLATE SERUM Lab Routine Chronic ITP (idiopathic thrombocytopenia) (HCC) Every 6 weeks for 9 Occurrences starting 04/20/2023 until 04/19/[address] [facility] Work Phone: Comment on above: Every 6 weeks for 9 Occurrences starting 04/20/2023 until 04/19/2024 End: 04-19-2024 Iron and Iron binding capacity panel - Serum or Plasma IRON + TIBC Lab Routine Chronic ITP (idiopathic thrombocytopenia) (HCC) Every 6 weeks for 9 Occurrences starting 04/20/2023 until 04/19/[address] [facility] Work Phone: Comment on above: Every 6 weeks for 9 Occurrences starting 04/20/2023 until 04/19/2024 [facility] Immunizations Immunization Date Immunization Notes Care Provider [facility] 04-20-2022 influenza, high-dose , quadrivalent vaccine (FLUZONE HIGH DOSE QUADRIVALENT) Jayden Connelly APRN.[employer] Work Phone: [facility] 04-20-2022 influenza virus vacc ine, unspecified formulation Rinku Ramsey MD Work Phone: [facility] 03-23-2021 influenza, high-dose , quadrivalent vaccine (FLUZONE HIGH DOSE QUADRIVALENT) Jayden Connelly APRN.[employer] Work Phone: [facility] 10-17-2020 COVID-19 vaccine, fu ll dose (MODERNA) Jayden Connelly APRN.[employer] Work Phone: [facility] 09-19-2020 COVID-19 vaccine, fu ll dose (MODERNA) Jayden Connelly APRN.[employer] Work Phone: [facility] 03-18-2020 influenza, high-dose , quadrivalent vaccine (FLUZONE HIGH DOSE QUADRIVALENT) Jayden Connelly APRN.[employer] Work Phone: [facility] 04-01-2019 influenza, high dose seasonal, preservative-free Jayden Connelly APRN.[employer] Work Phone: [facility] 04-01-2019 pneumococcal polysaccharide vaccine, 23 valent Jayden Connelly APRN.[employer] Work Phone: [facility] 03-23-2018 influenza, high dose seasonal, preservative-free Jayden Connelly APRN.[employer] Work Phone: [facility] 03-23-2018 pneumococcal conjuga te vaccine, 13 valent Jayden Connelly FINANCIAL SERVICES REPRESENTATIVE.[employer] Work Phone: [facility] 04-08-2017 influenza, high dose seasonal, preservative-free Jayden Connelly FINANCIAL SERVICES REPRESENTATIVE.[employer] Work Phone: [facility] 09-06-2016 pneumococcal conjuga te vaccine, 13 valent Jayden Connelly FINANCIAL SERVICES REPRESENTATIVE.[employer] Work Phone: [facility] Payers Date Payer Category Payer Self-pay [id number] 2021 Medicare UHC AARP MEDICAR E UHC AARP MEDICARE HMO [id number] 2021-Present [phone] [address] [address] [place] [address] [facility] [id number] 2021 Medicare UHC AARP MEDICAR E UHC AARP MEDICARE HMO [id number] 2021-Present [phone] [address] [address] [place] [address] [facility] [id number] 2021 Private Health Insurance [id number] 2015 Medicare MEDICARE MEDICAR E A AND B [id number] 2015-[address] [place] [address] Medicare [id number] 1950 Unknown [id number] Medicare [id number] Medicare [id number] Medicare [id number] Unknown [facility] [id number] Unknown [id number] Social History Date Type Detail Facility Start: 09-16-2021 End: 05-12-2022 Tobacco smoking status NHIS Light tobacco smoker [facility] History of tobacco use Cigarette Smoker [facility] Start: 09-16-2021 End: 05-12-2022 Tobacco use and exposure Smokeless tobacco non-user [facility] Start: 09-16-2021 End: 06-05-2023 Alcohol intake Current non-drinker of alcohol (finding) [facility] Start: 1950 Sex Assigned At Not on file [facility] Start: 10-18-2021 End: 05-12-2022 Exposure to SARS-CoV-2 (event) Not sure [facility] Start: 03-03-2016 Tobacco smoking stat us WIIS Smokes tobacco daily [facility] Start: 12-15-2022 End: 01-26-2023 Sex Assigned At [facility] History of tobacco use Passive smoker [facility] Start: 1950 Sex Assigned At Female F [facility] Start: 12-15-2022 End: 01-26-2023 History of Social function [facility] Adult Depression Screening Assessment 0 [facility] Clinical Notes 05-12-2021 to 06-05-2023 Ana Hernandez PA-C - 06/05/2023 8:47 AM ESTTelephone Encounter - Krista Harden [facility] - 05/01/2023 2:44 PM EDTPatient Rinku Pelayo MD - 04/20/2023 10:30 AM EDT Note Date & Type Note Facility 06-05-2023 Note HNO ID: [id number] Author: Ana Hernandez PA-C Service: ? Author Type: Physician Lithographic Retoucher Apprentice Type: Progress Notes Filed: 06/05/2023 11:06 AM Note Text: NAME: Andrei Leo CLINIC NO.: [id number] DATE OF SERVICE: June 05, 2023 (Mary) (Elements copied from Dr. Ramsey's note dated April 20, 2023, have been reviewed and updated where appropriate, and all reflect current assessment and medical decision making during today's encounter, June 05, 2023) Additional Clinicians involved in Andrei Leo's care: Dr. Shay, Dr. Deluna CC: Chronic ITP ASSESSMENT/PLAN: 1. Thrombocytopenia (HCC) - ICD9: 287.5, ICD10: D69.6 (primary diagnosis) She has chronic ITP. She has repsonded to Rituxan in the past, most recently she was on Plaquenil (with a history of Lupus) and did not respond to this. Bone marrow biopsy September 13, 2019 showed unremarkable maturing trilineage hematopoiesis. Completed 4 weekly doses of Rituxan 11/2019 and platelet counts improved but still low. It is suspected she may also have hypersplenism and splenomegaly due to sleep apnea or liver congestion - cannot use CPAP. - Continues to respond to Tavalisse started 05/2021. 2. Pulmonary nodules - ICD9: 793.19, ICD10: R91.8 : 12/31/2020 CT Chest stable. No new findings. 3. Lupus (HCC) - ICD9: 710.0, ICD10: M32.9: She is asymptomatic from Lupus of the skin. 4. 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 5. HTN - continue Losartan plus HCTZ and continue managing HTN. Improved control even on Tavalisse. 6. Read lesion - may need biopsy in future. 7. Osteoporosis--dexa scan 05/17/2023--PCP managing. PLAN: Continue Tavalisse 100 mg twice daily. Follow up in 6 weeks with labs. Treatment to Date: . 05/14/2021 - Current: Tavalisse 4. 10/31/2019 - 11/21/2019: Weekly Rituxan x 4 3. 04/11/2019 Plaquenil which she stopped 2. January 2019 Prednisone 1. 2017 Rituxan X 4 HPI: Updated Visit, June 05, 2023: Andrei returns for follow up. Remains on Tavalisse 100 mg BID. She reports having a mammogram and dexa scan at [facility] per her PCP. She states that she was told she has osteoporosis and is following up with PCP for treatment of this. Updated Visit, April 20, 2023: Andrei is doing well and platelets 127k. Saw nephrology. US and CT reviewed - notable for renal cyst. Updated Visit, March 09, 2023: Andrei returns and generally doing well. Although, she tells me, that her family members continue to struggle with health issues. Labs remain stable for her. Updated Visit, January 26, 2023: went to [place] with bad GB, brother's did of cancer, grand-nephew in [place] passed from ALL -- so she is stressed. Platelets stable at 122. LFT slightly elevated. Updated Visit, December 15, 2022: Doing well but mole is enlarging and bothering her on her left scalp. Platelets 113. Updated Visit, October 27, 2022: Doing well. Labs are great - platelets 119 Updated Visit, September 15, 2022: Andrei continues to do very well. Very busy with family life and issues. No new complaints. Updated Visit, August 04, 2022: Andrei Leo returns for follow-up. She remains on Tavalisse and is tolerating it well. She denies any bleeding or abnormal bruising. Since her last visit she had a colonoscopy and had polyps removed. She states that she was notified of the biopsy results which were negative. She is scheduled for a hearing test on 08/10/2022 and will then see ENT for follow-up on 08/30/2022. 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 Overall, she is doing well today with no new complaints. Updated Visit, June 23, 2022: Andrei is doing well on Tavalisse 100 mg BID. Plts 118. Right anterior read has a erythematous wide streak that throbs at night and is tender to touch. But it has been there for 6 months - 12/09/2021. I don't think this is an infection. She has edema in both legs. Will recommend trying Ice for 15 minutes at a time to see if she has some reduction in inflammation. It is possible that this is a manifestation of lupus. Will monitor. Consider a biopsy of skin if not resolved. Updated Visit, May 12, 2022: Andrei Leo returns for follow-up. She remains on Tavalisse 100 mg twice daily and is tolerating it well. There has been no significant medical changes since her last visit. She states that she is feeling okay. She states that she feels a sinus infection coming on. She noticed her right high becoming puffy which is a sign. She denies fevers and chills. No bleeding or abnormal bruising. She has a follow-up scheduled with nephrology in either June or July. She offers no new complaints today. No new issues, problems or concerns. Updated Visit, March 31, 2022: Andrei is 71 yo and returns in follow up for ITP currently controlled with fostamatinib. Seems to bruise more easily with blo (more content not included)... [facility] 06-05-2023 History of Presen t illness Narrative Images from the original note were not included. NAME: Andrei Leo [facility] NO.: [id number] DATE OF SERVICE: June 05, 2023 (Mary) (Elements copied from Dr. Ramsey's note dated April 20, 2023, have been reviewed and updated where appropriate, and all reflect current assessment and medical decision making during today's encounter, June 05, 2023) Additional Clinicians involved in Andrei Leo's care: Dr. Shay, Dr. Deluna CC: Chronic ITP ASSESSMENT/PLAN: 1. Thrombocytopenia (HCC) - ICD9: 287.5, ICD10: D69.6 (primary diagnosis) She has chronic ITP. She has repsonded to Rituxan in the past, most recently she was on Plaquenil (with a history of Lupus) and did not respond to this. Bone marrow biopsy September 13, 2019 showed unremarkable maturing trilineage hematopoiesis. Completed 4 weekly doses of Rituxan 11/2019 and platelet counts improved but still low. It is suspected she may also have hypersplenism and splenomegaly due to sleep apnea or liver congestion - cannot use CPAP. - Continues to respond to Tavalisse started 05/2021. 2. Pulmonary nodules - ICD9: 793.19, ICD10: R91.8 : 12/31/2020 CT Chest stable. No new findings. 3. Lupus (HCC) - ICD9: 710.0, ICD10: M32.9: She is asymptomatic from Lupus of the skin. 4. 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 5. HTN - continue Losartan plus HCTZ and continue managing HTN. Improved control even on Tavalisse. 6. Read lesion - may need biopsy in future. 7. Osteoporosis--dexa scan 05/17/2023--PCP managing. PLAN: Continue Tavalisse 100 mg twice daily. Follow up in 6 weeks with labs. Treatment to Date: 5. 05/14/2021 - Current: Tavalisse 4. 10/31/2019 - 11/21/2019: Weekly Rituxan x 4 3. 04/11/2019 Plaquenil which she stopped 2. January 2019 Prednisone 1. 2017 Rituxan X 4 HPI: Updated Visit, June 05, 2023: Andrei returns for follow up. Remains on Tavalisse 100 mg BID. She reports having a mammogram and dexa scan at [facility] per her PCP. She states that she was told she has osteoporosis and is following up with PCP for treatment of this. Updated Visit, April 20, 2023: Andrei is doing well and platelets 127k. Saw nephrology. US and CT reviewed - notable for renal cyst. Updated Visit, March 09, 2023: Andrei returns and generally doing well. Although, she tells me, that her family members continue to struggle with health issues. Labs remain stable for her. Updated Visit, January 26, 2023: went to [place] with bad GB, brother's did of cancer, grand-nephew in [place] passed from ALL -- so she is stressed. Platelets stable at 122. LFT slightly elevated. Updated Visit, December 15, 2022: Doing well but mole is enlarging and bothering her on her left scalp. Platelets 113. Updated Visit, October 27, 2022: Doing well. Labs are great - platelets 119 Updated Visit, September 15, 2022: Andrei continues to do very well. Very busy with family life and issues. No new complaints. Updated Visit, August 04, 2022: Andrei Leo returns for follow-up. She remains on Tavalisse and is tolerating it well. She denies any bleeding or abnormal bruising. Since her last visit she had a colonoscopy and had polyps removed. She states that she was notified of the biopsy results which were negative. She is scheduled for a hearing test on 08/10/2022 and will then see ENT for follow-up on 08/30/2022. 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 Overall, she is doing well today with no new complaints. Updated Visit, June 23, 2022: Andrei is doing well on Tavalisse 100 mg BID. Plts 118. Right anterior read has a erythematous wide streak that throbs at night and is tender to touch. But it has been there for 6 months - 12/09/2021. I don't think this is an infection. She has edema in both legs. Will recommend trying Ice for 15 minutes at a time to see if she has some reduction in inflammation. It is possible that this is a manifestation of lupus. Will monitor. Consider a biopsy of skin if not resolved. Updated Visit, May 12, 2022: Andrei Leo returns for follow-up. She remains on Tavalisse 100 mg twice daily and is tolerating it well. There has been no significant medical changes since her last visit. She states that she is feeling okay. She states that she feels a sinus infection coming on. She noticed her right high becoming puffy which is a sign. She denies fevers and chills. No bleeding or abnormal bruising. She has a follow-up scheduled with nephrology in either June or July. She offers no new complaints today. No new issues, problems or concerns. Updated Visit, March 31, 2022: Andrei is 71 yo and returns in follow up for ITP currently controlled with fostamatinib. Seems to bruise more easily with blood draws. Labs are stable. Plts 119k, hgb 11.6 Tolerating Tavalisse without difficulty however, LFT will need to be monitored as they are slightly increased. Got back from [place] and saw her sisters and had a nice trip with her of 54 yrs. Updated Visit, February 11, 2022: Andrei Leo returns for scheduled follow-up. She remains on Tavalisse 100 mg twice daily and is tolerating it well. She denies any signs of bleeding or abnormal bruising. Also no signs of blood clots. She saw Dr. Gilson Troncoso today. She states that she was told she has protein in her urine. She will have her next follow-up with nephrology in 6 months. She is stil having issues with her sinuses and plans to follow-up with the health clinic. She has ongoing issues with dry mouth. Overall, she is doing fairly well. Updated Visit, December 17, 2021: Andrei Leo returns for scheduled follow-up. She remains on Tavalisse and is tolerating it well. She denies any signs of bleeding or abnormal bruising. No signs of blood clots. She had a consultation with nephrology, Dr. Gilson Sarah. Dr. Sarah increased her losartan to 50 mg daily. He also ordered a renal ultrasound. She has a follow up scheduled in February. She complains today of leg cramps. Overall, she is doing well. 11/20/2021 Ultrasound retroperitoneal complete Impression: 1. No evidence of echogenic calculi or hydronephrosis. 2. There are bilateral renal cysts. Measurements as described above. (Copy scanned) Updated Visit, October 28, 2021: No AE's Platelets responding nicely HTN improved on Losartan but is still due to see nephrology. She is tired and stressed awaiting her niece's news. (Niece is in hospice due to pancreatic cancer). She's doing well and wants to continue current regimen of therapy. Updated Visit, September 16, 2021: Andrei Leo returns for follow-up. She remains on Tavalisse 100 mg twice daily and is tolerating it well. There has been no significant medical changes since her last visit. She denies bleeding and abnormal bruising. She continues to have a cough but states the cough is under control. The cough mainly occurs at night but not every night. She offers no new complaints today. No new issues, problems or concerns. Updated Visit, August 05, 2021: Mrs. Leo returns today and platelets continue to respond. We changed her anti-HTNives and her cough resolved, but today she notes she has a dry cough that returned this past Monday. Doubt this is due to medications. Will continue monitoring her. Updated Visit, July 16, 2021: Andrei Leo returns for follow-up. She remains on Tavalisse 100 mg twice daily and is tolerating it well. She questions if the medication can cause her to lose her hair. She had been taking Tessalon Perles which helped with the cough. After stopping for 1 week her cough came back. She recently resumed the Tessalon Perles. She is complaining of chronic left leg pain and plans to make an appointment to see an orthopedic surgeon. She canceled her nephrology appointment because she did not understand why she was going to see a mounting inspector for her blood pressure. Patient also has other mild medical issues and plans to get reestablished with a PCP. Overall, she is doing fairly well. Updated Visit, June 25, 2021: Andrei is 70 yo and returns in follow up for ITP currently on Tavalisse and tolerating it and responding to it very well. Platelets have remained stable and above 50k since starting on it in mid May 2021. BP is stable. Updated Visit, June 11, 2021: Andrei Leo returns for follow-up. She remains on tab Tavalisse, and is tolerating it well. After she takes the Tavalisse, she gets a mota headache . It goes away very quickly. She denies any signs of bleeding or abnormal bruising. She still has cough despite stopping the lisinopril. She denies fevers, chills, night sweats and signs/symptoms of infection. Her granddaughter developed Covid after Thanksgiving. The patient tested and she is negative. She is currently watching her great grandchildren. She denies any diarrhea. Updated Visit, May 27, 2021: Returns to see response to Tavalisse which appears to be working nicely. Abdominal cramps and into ribs. Possibly dehydrated BP is better but Cough from Lisinopril persists and is keeping her up. Updated Visit, May 13, 2021: Still has high blood pressure and has some concern that lisinopril is causing a cough but her cough is not consistent with lisinopril - she has a tickle in her throat and has post nasal drip that induces it. She will need to stay on her HCTZ which is only intermittent right now. Will increase her lisinopril. Has chronic edema in left left that has had a skin graft. plts are 23 k today. Sinusitis is better. Updated Visit, April 29, 2021: Andrei Doesn't feel well today. 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 Sinus are full and she doesn't feel great. Additionally her plateltes have dropped below 50k again and since she has failed prior therapy, will try her on fostamatininb. Isn't tolerating HCTZ. Will try Lisinopril. Updated Visit, February 24, 2021: Labs are stable but her fatigue is prominent. She is caring for her and grand kids. TSH was normal. Updated Visit, January 27, 2021: Andrei Leo returns for scheduled follow-up. There has been no significant medical changes since her last visit. She denies bleeding and abnormal bruising. She complains of low energy. She has occasional exertional shortness of breath. She has a cough at night and relates it to sinus drainage. Overall, doing fairly well. Updated Visit, December 18, 2020: Tired during the day but not sleepy. HTN is notable Fatigue likely associated with weight gain Platelets are down today, will see her in 4 Weeks, recheck BP and platelets - consider tavalisse at that time. Intermittent nose bleeds ? HTN vs. ITP - platelet count is not particularly low to cause that. Updated Visit, September 17, 2020: Andrei is 69 yo and returns to review labs. She never got seen for her elevated BP. I again cautioned her and urged her to get evaluated. She smokes a little with coffee, No alcohol Light headedness is improved but blood pressure is elevated and needs her PCP to make recommendations. She is beyond 10 years from her last colonoscopy and will need to schedule screening again. Platelets are stable and shouldn't interfere with any procedures that she may need. Updated Visit, June 25, 2020: Andrei is a very nice 69-year-old woman returning with a history of chronic ITP. She has stable counts but still having intermittent lightheadedness although less frequently. She states her cough is improved but often has a dry mouth. Corrected the prior notes- she isn't using CPAP at all, but only has mild apnea on recent re-check. I still believe that using CPAP may be of benefit to her. I recommended that she see her primary care physician for lightheadedness and dizziness at her last visit but she never made it. Updated Visit, April 02, 2020: Andrei is 69-year-old woman with history of ITP treated with Rituxan through November 2019. On return today, her platelets have been stable and improved. Her CPAP improved her overall fatigue and she is more compliant with usage. However, she reports having had 2 dizzy spells fairly recently and says she will follow-up with her primary care physician to work this up if it persists. She is requested Tessalon Perles again for her chronic intermittent cough. She is otherwise doing very well. Updated Visit, January 02, 2020: Andrei is 69 yo and is doing well. Platelets are stable. She is asymptomatic. If she stops responding, we will switch to Tavalisse. Updated Visit, December 05, 2019: Andrei is 69 years old and returns having completed Rituxan for 4 weekly doses. Her platelet counts are stable. She has no sequelae of thrombocytopenia. Reviewing her CBC shows white blood cell count 3.26, platelet count 83,000, H/H is 11.2/36.7. She reports daytime fatigue and a history of snoring having had a marginal sleep study in the past, she is much heavier now on I suspect that this may be contributing to her findings of both leukopenia and thrombocytopenia. I've encouraged her to obtain a sleep study. Her review of systems is otherwise negative by full review of organ systems. Updated Visit, October 31, 2019: Blow nose with slight bleeding with sneeze otherwise is asymptomatic. However, I am worried that she will have a more traumatic bleed. She is willing to proceed. Updated Visit, October 21, 2019: She is not on anything currently for her ITP. She has imsty having her blood checked every three weeks and last week her platelet count was 24,000. She did notice some mild bruising. No bleeding. She does have fatigue. No new medications or infections. She does occasionally have a cough but this is not new for her. . Updated Visit, September 25, 2019: Returns -results are still pending from bone marrow studies but I spoke with the pathologist reading the slides and he indicated no significant acute pathology. Platelets are stable but slowly dropping, no petechiae reported or noted on visualization. She is aware of risks for bleeding especially if platelets drop precipitously. Exam limited to gross visualization where appropriate due to COVID-19. Updated Visit, September 13, 2019: Returns to review CT abdomen wich is essentially unremarkable for etiology of pain. CXR show lower lobe infiltrates consistent with her know upper respiratory tract infection and cough. She will be undergoing bone marrow aspirate in order to see if her marrow is intact and if she is making adequate platelets. Radiographic Data: 5. 03/29/2023 Ultrasound renal bilateral 4. 03/12/2023 CT abdomen/pelvis 3. 12/31/2020 CT Chest IMPRESSION: 1. Multiple subcentimeter nodular opacities measuring up to 7 mm (30-40) stable since 12/19/2019. If clinically indicated, consider one-year follow-up. 2. No interval change since 12/19/2019. 2. 12/31/2020 CT chest IMPRESSION: 1. Multiple subcentimeter nodular opacities measuring up to 7 mm (30-40) stable since 12/19/2019. If clinically indicated, consider one-year follow-up. 2. No interval change since 12/19/2019. 1. 09/04/2019: CT abd/Pelvis w/: No evidence of bowel obstruction or pericolic inflammatory change. The appendix is not visualized but no evidence of inflammatory change is noted in the right lower quadrant of the abdomen. Borderline aneurysmal enlargement of the infrarenal abdominal aorta measuring up to 3.0 cm diameter. Subcentimeter nodular opacities in the right lung base measuring up to 4-5 mm. Multiple bilateral renal cysts. Subcentimeter right adrenal myelolipoma. Pathologic Profile/ Molecular Data: 1. 09/13/2019 Bone marrow sternal aspirate: Bone marrow aspirate, clot section and peripheral blood (A-B): - Non-diagnostic lymphoid aggregates, see comment. - Unremarkable maturing trilineage hematopoiesis. REVIEW OF SYSTEMS Per HPI and otherwise negative by full review of organ systems. ECOG PERFORMANCE STATUS: 0 PHYSICAL EXAMINATION: Vitals: BP 152/84[Manual[ Pulse 76 Temp (Src) 97 (Temporal) Resp 16 Ht 5' 2.52 (1.59m) Wt 192 lb 6.4 oz (87.3kg) SpO2 97% BMI 34.61 kg/(m^2). Body surface area is 1.96 meters squared. PHYSICAL EXAMINATION General: Alert and oriented, no distress, pleasant and cooperative. Heart: Regular, normal S1 and S2, no murmurs, rubs, or gallops Lungs: Clear to auscultation bilaterally Abdomen: Benign, difficult to palpate liver/spleen due to body habitus Extremities: Feet/ankles without edema, posterior tibial pulses full and symmetrical ALLERGIES: ALLERGIES Allergen Reactions Tetnus [Tetanus Vac* Unknown Vancomycin Unknown Burning sensation MEDICATIONS: fostamatinib (TAVALISSE) 100 mg tablet Take 1 tablet by mouth two times a day. pilocarpine (SALAGEN) 5 mg tablet TAKE 1 TABLET BY MOUTH THREE TIMES A DAY hydroCHLOROthiazide 25 mg tablet TAKE 1 TABLET BY MOUTH EVERY DAY losartan (COZAAR) 25 mg tablet Take 2 tablets by mouth daily at bedtime. spironolactone (ALDACTONE) 25 mg tablet Take 25 mg by mouth once daily. benzonatate (TESSALON PERLE) 100 mg capsule TAKE 1 CAPSULE BY MOUTH EVERY 6 HOURS NEEDED FOR COUGH. cholecalciferol, vitamin D3, (VITAMIN D3 ORAL) Take by mouth. LABORATORY VALUES: WBC (k/uL) Date Value 06/05/2023 4.64 RBC (m/uL) Date Value 06/05/2023 3.49 (L) Hemoglobin (g/dL) Date Value 06/05/2023 11.0 (L) Hematocrit (%) Date Value 06/05/2023 34.0 (L) MCV (fL) Date Value 06/05/2023 97.4 MCH (pg) Date Value 06/05/2023 31.5 MCHC (g/dL) Date Value 06/05/2023 32.4 RDW-CV (%) Date Value 06/05/2023 14.4 Platelet Count (k/uL) Date Value 06/05/2023 137 (L) MPV (fL) Date Value 06/05/2023 9.5 Glucose (mg/dL) Date Value 04/20/2023 134 (H) BUN (mg/dL) Date Value 04/20/2023 26 (H) Creatinine (mg/dL) Date Value 04/20/2023 1.05 (H) Sodium (mmol/L) Date Value 04/20/2023 140 Potassium (mmol/L) Date Value 04/20/2023 4.9 Chloride (mmol/L) Date Value 04/20/2023 102 CO2 (mmol/L) Date Value 04/20/2023 27 Protein, Total (g/dL) Date Value 04/20/2023 7.4 Albumin (g/dL) Date Value 04/20/2023 3.9 Calcium, Total (mg/dL) Date Value 04/20/2023 10.2 Alkaline Phosphatase (U/L) Date Value 04/20/2023 67 Bilirubin, Total (mg/dL) Date Value 04/20/2023 0.6 AST (U/L) Date Value 04/20/2023 38 (H) ALT (U/L) Date Value 04/20/2023 23 Cholesterol, Total (mg/dL) Date Value 03/30/2017 171 Triglyceride (mg/dL) Date Value 03/30/2017 118 DIAGNOSIS: (D69.3) Chronic ITP (idiopathic thrombocytopenia) (HCC) (primary encounter diagnosis) Plan: COMP METABOLIC PANEL, CBC + DIFF (I10) Essential hypertension Plan: COMP METABOLIC PANEL, CBC + DIFF (I10) Hypertension, unspecified type PAST MEDICAL HISTORY Diagnosis Date Lupus (HCC) Thrombocytopenia (HCC) PAST SURGICAL HISTORY Procedure Laterality Date COLONSCOPY SCREENING HIGH RISK 07/25/2022 HYSTERECTOMY HX Social History Tobacco Use Smoking status: Light Smoker Types: Cigarettes Passive exposure: Past Smokeless tobacco: Never Vaping Use Vaping Use: Never used Substance Use Topics Alcohol use: No Drug use: No No family history on file. I spent a total of 20 minutes on the date of the service which included preparing to see the patient, [id number] patient care, completing clinical documentation, obtaining and/or reviewing separately obtained history, performing a medically appropriate examination, counseling and educating the patient/family/caregiver, ordering medications, tests, or procedures, independently interpreting results (not separately reported), communicating results to the patient/family/caregiver, and care coordination (not separately reported). Ana Hernandez PA-C CC: Dr. Chadd Deluna documented in this encounter [facility] 05-01-2023 Miscellaneous Notes Please Fax RX to [facility] for [facility] @ [phone] Emiliano Harden, KrissD, BCOP documented in this encounter [facility] 04-20-2023 Note HNO ID: [id number] Author: Rinku Ramsey MD Service: ? Author Type: Physician Type: Progress Notes Filed: 04/23/2023 4:09 PM Note Text: NAME: Andrei Leo [facility] NO.: [id number] DATE OF SERVICE: April 20, 2023 (Roxy) Some elements in this clinic note that are critical to medical decision making have been carefully reviewed and included from a prior clinic note dated: March 09, 2023 (Roxy) Additional Clinicians involved in Andrei Leo's care: Dr. Shay, Dr. Deluna CC: Chronic ITP ASSESSMENT/PLAN: 1. Thrombocytopenia (HCC) - ICD9: 287.5, ICD10: D69.6 (primary diagnosis) She has chronic ITP. She has repsonded to Rituxan in the past, most recently she was on Plaquenil (with a history of Lupus) and did not respond to this. Bone marrow biopsy September 13, 2019 showed unremarkable maturing trilineage hematopoiesis. Completed 4 weekly doses of Rituxan 11/2019 and platelet counts improved but still low. 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 - Continues to respond to Tavalisse started 05/2021. 2. Pulmonary nodules - ICD9: 793.19, ICD10: R91.8 : 12/31/2020 CT Chest stable. No new findings. 3. Lupus (HCC) - ICD9: 710.0, ICD10: M32.9: She is asymptomatic from Lupus of the skin. 4. 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 5. HTN - continue Losartan plus HCTZ and continue managing HTN. Improved control even on Tavalisse. 6. Read lesion - may need biopsy in future. PLAN: Continue Tavalisse 100 mg twice daily. Follow up in 6 weeks with labs. Treatment to Date: . 05/14/2021 - Current: Tavalisse 4. 10/31/2019 - 11/21/2019: Weekly Rituxan x 4 3. 04/11/2019 Plaquenil which she stopped 2. January 2019 Prednisone 1. 2018 Rituxan X 4 HPI: Updated Visit, April 20, 2023: Andrei is doing well and platelets 127k. Saw nephrology. US and CT reviewed - notable for renal cyst. Updated Visit, March 09, 2023: Andrei returns and generally doing well. Although, she tells me, that her family members continue to struggle with health issues. Labs remain stable for her. Updated Visit, January 26, 2023: went to [place] with bad GB, brother's did of cancer, grand-nephew in [place] passed from ALL -- so she is stressed. Platelets stable at 122. LFT slightly elevated. Updated Visit, December 15, 2022: Doing well but mole is enlarging and bothering her on her left scalp. Platelets 113. Updated Visit, October 27, 2022: Doing well. Labs are great - platelets 119 Updated Visit, September 15, 2022: Andrei continues to do very well. Very busy with family life and issues. No new complaints. Updated Visit, August 04, 2022: Andrei Leo returns for follow-up. She remains on Tavalisse and is tolerating it well. She denies any bleeding or abnormal bruising. Since her last visit she had a colonoscopy and had polyps removed. She states that she was notified of the biopsy results which were negative. She is scheduled for a hearing test on 08/10/2022 and will then see ENT for follow-up on 08/30/2022. 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 Overall, she is doing well today with no new complaints. Updated Visit, June 23, 2022: Andrei is doing well on Tavalisse 100 mg BID. Plts 118. Right anterior read has a erythematous wide streak that throbs at night and is tender to touch. But it has been there for 6 months - 12/09/2021. I don't think this is an infection. She has edema in both legs. Will recommend trying Ice for 15 minutes at a time to see if she has some reduction in inflammation. It is possible that this is a manifestation of lupus. Will monitor. Consider a biopsy of skin if not resolved. Updated Visit, May 12, 2022: Andrei Leo returns for follow-up. She remains on Tavalisse 100 mg twice daily and is tolerating it well. There has been no significant medical changes since her last visit. She states that she is feeling okay. She states that she feels a sinus infection coming on. She noticed her right high becoming puffy which is a sign. She denies fevers and chills. No bleeding or abnormal bruising. She has a follow-up scheduled with nephrology in either June or July. She offers no new complaints today. No new issues, problems or concerns. Updated Visit, March 31, 2022: Andrei is 71 yo and returns in follow up for ITP currently controlled with fostamatinib. Seems to bruise more easily with blood draws. Labs are stable. Plts 119k, hgb 11.6 Tolerating Tavalisse without difficulty however, LFT will need to be monitored as they are slightly increased. Got back from [place] and saw her sisters and had a nice trip with her of 54 yrs. Updated Visit, February 11, 2022: Andrei Leo returns for scheduled follow-up. She remains on Tavalisse 100 mg twice daily and is (more content not included)... [facility] 04-20-2023 Instructions Rinku Ramsey MD - 04/20/2023 10:47 AM EDT Continue Tavalisse 100 mg twice daily. Follow up in 6 weeks with labs. documented in this encounter [facility] 04-20-2023 History of Presen t illness Narrative Images from the original note were not included. NAME: Andrei Leo [facility] NO.: [id number] DATE OF SERVICE: April 20, 2023 (Roxy) Some elements in this clinic note that are critical to medical decision making have been carefully reviewed and included from a prior clinic note dated: March 09, 2023 (Roxy) Additional Clinicians involved in Andrei Leo's care: Dr. Shay, Dr. Deluna CC: Chronic ITP ASSESSMENT/PLAN: 1. Thrombocytopenia (HCC) - ICD9: 287.5, ICD10: D69.6 (primary diagnosis) She has chronic ITP. She has repsonded to Rituxan in the past, most recently she was on Plaquenil (with a history of Lupus) and did not respond to this. Bone marrow biopsy September 13, 2019 showed unremarkable maturing trilineage hematopoiesis. Completed 4 weekly doses of Rituxan 11/2019 and platelet counts improved but still low. 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 - Continues to respond to Tavalisse started 05/2021. 2. Pulmonary nodules - ICD9: 793.19, ICD10: R91.8 : 12/31/2020 CT Chest stable. No new findings. 3. Lupus (HCC) - ICD9: 710.0, ICD10: M32.9: She is asymptomatic from Lupus of the skin. 4. 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 5. HTN - continue Losartan plus HCTZ and continue managing HTN. Improved control even on Tavalisse. 6. Read lesion - may need biopsy in future. PLAN: Continue Tavalisse 100 mg twice daily. Follow up in 6 weeks with labs. Treatment to Date: . 05/14/2021 - Current: Tavalisse 4. 10/31/2019 - 11/21/2019: Weekly Rituxan x 4 3. 04/11/2019 Plaquenil which she stopped 2. January 2019 Prednisone 1. 2017 Rituxan X 4 HPI: Updated Visit, April 20, 2023: Andrei is doing well and platelets 127k. Saw nephrology. US and CT reviewed - notable for renal cyst. Updated Visit, March 09, 2023: Andrei returns and generally doing well. Although, she tells me, that her family members continue to struggle with health issues. Labs remain stable for her. Updated Visit, January 26, 2023: went to [place] with bad GB, brother's did of cancer, grand-nephew in [place] passed from ALL -- so she is stressed. Platelets stable at 122. LFT slightly elevated. Updated Visit, December 15, 2022: Doing well but mole is enlarging and bothering her on her left scalp. Platelets 113. Updated Visit, October 27, 2022: Doing well. Labs are great - platelets 119 Updated Visit, September 15, 2022: Andrei continues to do very well. Very busy with family life and issues. No new complaints. Updated Visit, August 04, 2022: Andrei Leo returns for follow-up. She remains on Tavalisse and is tolerating it well. She denies any bleeding or abnormal bruising. Since her last visit she had a colonoscopy and had polyps removed. She states that she was notified of the biopsy results which were negative. She is scheduled for a hearing test on 08/10/2022 and will then see ENT for follow-up on 08/30/2022. 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 Overall, she is doing well today with no new complaints. Updated Visit, June 23, 2022: Andrei is doing well on Tavalisse 100 mg BID. Plts 118. Right anterior read has a erythematous wide streak that throbs at night and is tender to touch. But it has been there for 6 months - 12/09/2021. I don't think this is an infection. She has edema in both legs. Will recommend trying Ice for 15 minutes at a time to see if she has some reduction in inflammation. It is possible that this is a manifestation of lupus. Will monitor. Consider a biopsy of skin if not resolved. Updated Visit, May 12, 2022: Andrei Leo returns for follow-up. She remains on Tavalisse 100 mg twice daily and is tolerating it well. There has been no significant medical changes since her last visit. She states that she is feeling okay. She states that she feels a sinus infection coming on. She noticed her right high becoming puffy which is a sign. She denies fevers and chills. No bleeding or abnormal bruising. She has a follow-up scheduled with nephrology in either June or July. She offers no new complaints today. No new issues, problems or concerns. Updated Visit, March 31, 2022: Andrei is 71 yo and returns in follow up for ITP currently controlled with fostamatinib. Seems to bruise more easily with blood draws. Labs are stable. Plts 119k, hgb 11.6 Tolerating Tavalisse without difficulty however, LFT will need to be monitored as they are slightly increased. Got back from [place] and saw her sisters and had a nice trip with her of 54 yrs. Updated Visit, February 11, 2022: Andrei Leo returns for scheduled follow-up. She remains on Tavalisse 100 mg twice daily and is tolerating it well. She denies any signs of bleeding or abnormal bruising. Also no signs of blood clots. She saw Dr. Gilson Troncoso today. She states that she was told she has protein in her urine. She will have her next follow-up with nephrology in 6 months. She is stil having issues with her sinuses and plans to follow-up with the health clinic. She has ongoing issues with dry mouth. Overall, she is doing fairly well. Updated Visit, December 17, 2021: Andrei Leo returns for scheduled follow-up. She remains on Tavalisse and is tolerating it well. She denies any signs of bleeding or abnormal bruising. No signs of blood clots. She had a consultation with nephrology, Dr. Gilson Sarah. Dr. Sarah increased her losartan to 50 mg daily. He also ordered a renal ultrasound. She has a follow up scheduled in February. She complains today of leg cramps. Overall, she is doing well. 11/20/2021 Ultrasound retroperitoneal complete Impression: 1. No evidence of echogenic calculi or hydronephrosis. 2. There are bilateral renal cysts. Measurements as described above. (Copy scanned) Updated Visit, October 28, 2021: No AE's Platelets responding nicely HTN improved on Losartan but is still due to see nephrology. She is tired and stressed awaiting her niece's news. (Niece is in hospice due to pancreatic cancer). She's doing well and wants to continue current regimen of therapy. Updated Visit, September 16, 2021: Andrei Leo returns for follow-up. She remains on Tavalisse 100 mg twice daily and is tolerating it well. There has been no significant medical changes since her last visit. She denies bleeding and abnormal bruising. She continues to have a cough but states the cough is under control. The cough mainly occurs at night but not every night. She offers no new complaints today. No new issues, problems or concerns. Updated Visit, August 05, 2021: Mrs. Leo returns today and platelets continue to respond. We changed her anti-HTNives and her cough resolved, but today she notes she has a dry cough that returned this past Monday. Doubt this is due to medications. Will continue monitoring her. Updated Visit, July 16, 2021: Andrei Leo returns for follow-up. She remains on Tavalisse 100 mg twice daily and is tolerating it well. She questions if the medication can cause her to lose her hair. She had been taking Tessalon Perles which helped with the cough. After stopping for 1 week her cough came back. She recently resumed the Tessalon Perles. She is complaining of chronic left leg pain and plans to make an appointment to see an orthopedic surgeon. She canceled her nephrology appointment because she did not understand why she was going to see a mounting inspector for her blood pressure. Patient also has other mild medical issues and plans to get reestablished with a PCP. Overall, she is doing fairly well. Updated Visit, June 25, 2021: Andrei is 70 yo and returns in follow up for ITP currently on Tavalisse and tolerating it and responding to it very well. Platelets have remained stable and above 50k since starting on it in mid May 2021. BP is stable. Updated Visit, June 11, 2021: Andrei Leo returns for follow-up. She remains on tab Tavalisse, and is tolerating it well. After she takes the Tavalisse, she gets a mota headache . It goes away very quickly. She denies any signs of bleeding or abnormal bruising. She still has cough despite stopping the lisinopril. She denies fevers, chills, night sweats and signs/symptoms of infection. Her granddaughter developed Covid after Thanksgiving. The patient tested and she is negative. She is currently watching her great grandchildren. She denies any diarrhea. Updated Visit, May 27, 2021: Returns to see response to Tavalisse which appears to be working nicely. Abdominal cramps and into ribs. Possibly dehydrated BP is better but Cough from Lisinopril persists and is keeping her up. Updated Visit, May 13, 2021: Still has high blood pressure and has some concern that lisinopril is causing a cough but her cough is not consistent with lisinopril - she has a tickle in her throat and has post nasal drip that induces it. She will need to stay on her HCTZ which is only intermittent right now. Will increase her lisinopril. Has chronic edema in left left that has had a skin graft. plts are 23 k today. Sinusitis is better. Updated Visit, April 29, 2021: Andrei Doesn't feel well today. 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 Sinus are full and she doesn't feel great. Additionally her plateltes have dropped below 50k again and since she has failed prior therapy, will try her on fostamatininb. Isn't tolerating HCTZ. Will try Lisinopril. Updated Visit, February 24, 2021: Labs are stable but her fatigue is prominent. She is caring for her and grand kids. TSH was normal. Updated Visit, January 27, 2021: Andrei Leo returns for scheduled follow-up. There has been no significant medical changes since her last visit. She denies bleeding and abnormal bruising. She complains of low energy. She has occasional exertional shortness of breath. She has a cough at night and relates it to sinus drainage. Overall, doing fairly well. Updated Visit, December 18, 2020: Tired during the day but not sleepy. HTN is notable Fatigue likely associated with weight gain Platelets are down today, will see her in 4 Weeks, recheck BP and platelets - consider tavalisse at that time. Intermittent nose bleeds ? HTN vs. ITP - platelet count is not particularly low to cause that. Updated Visit, September 17, 2020: Andrei is 69 yo and returns to review labs. She never got seen for her elevated BP. I again cautioned her and urged her to get evaluated. She smokes a little with coffee, No alcohol Light headedness is improved but blood pressure is elevated and needs her PCP to make recommendations. She is beyond 10 years from her last colonoscopy and will need to schedule screening again. Platelets are stable and shouldn't interfere with any procedures that she may need. Updated Visit, June 25, 2020: Andrei is a very nice 69-year-old woman returning with a history of chronic ITP. She has stable counts but still having intermittent lightheadedness although less frequently. She states her cough is improved but often has a dry mouth. Corrected the prior notes- she isn't using CPAP at all, but only has mild apnea on recent re-check. I still believe that using CPAP may be of benefit to her. I recommended that she see her primary care physician for lightheadedness and dizziness at her last visit but she never made it. Updated Visit, April 02, 2020: Andrei is 69-year-old woman with history of ITP treated with Rituxan through November 2019. On return today, her platelets have been stable and improved. Her CPAP improved her overall fatigue and she is more compliant with usage. However, she reports having had 2 dizzy spells fairly recently and says she will follow-up with her primary care physician to work this up if it persists. She is requested Tessalon Perles again for her chronic intermittent cough. She is otherwise doing very well. Updated Visit, January 02, 2020: Andrei is 69 yo and is doing well. Platelets are stable. She is asymptomatic. If she stops responding, we will switch to Tavalisse. Updated Visit, December 05, 2019: Andrei is 69 years old and returns having completed Rituxan for 4 weekly doses. Her platelet counts are stable. She has no sequelae of thrombocytopenia. Reviewing her CBC shows white blood cell count 3.26, platelet count 83,000, H/H is 11.2/36.7. She reports daytime fatigue and a history of snoring having had a marginal sleep study in the past, she is much heavier now on I suspect that this may be contributing to her findings of both leukopenia and thrombocytopenia. I've encouraged her to obtain a sleep study. Her review of systems is otherwise negative by full review of organ systems. Updated Visit, October 31, 2019: Blow nose with slight bleeding with sneeze otherwise is asymptomatic. However, I am worried that she will have a more traumatic bleed. She is willing to proceed. Updated Visit, October 21, 2019: She is not on anything currently for her ITP. She has misty having her blood checked every three weeks and last week her platelet count was 24,000. She did notice some mild bruising. No bleeding. She does have fatigue. No new medications or infections. She does occasionally have a cough but this is not new for her. . Updated Visit, September 25, 2019: Returns -results are still pending from bone marrow studies but I spoke with the pathologist reading the slides and he indicated no significant acute pathology. Platelets are stable but slowly dropping, no petechiae reported or noted on visualization. She is aware of risks for bleeding especially if platelets drop precipitously. Exam limited to gross visualization where appropriate due to COVID-19. Updated Visit, September 13, 2019: Returns to review CT abdomen wich is essentially unremarkable for etiology of pain. CXR show lower lobe infiltrates consistent with her know upper respiratory tract infection and cough. She will be undergoing bone marrow aspirate in order to see if her marrow is intact and if she is making adequate platelets. Radiographic Data: Reviewed on January 27 2021. 3. 12/31/2020 CT Chest IMPRESSION: 1. Multiple subcentimeter nodular opacities measuring up to 7 mm (30-40) stable since 12/19/2019. If clinically indicated, consider one-year follow-up. 2. No interval change since 12/19/2019. 2. 12/31/2020 CT chest IMPRESSION: 1. Multiple subcentimeter nodular opacities measuring up to 7 mm (30-40) stable since 12/19/2019. If clinically indicated, consider one-year follow-up. 2. No interval change since 12/19/2019. 1. 09/04/2019: CT abd/Pelvis w/: No evidence of bowel obstruction or pericolic inflammatory change. The appendix is not visualized but no evidence of inflammatory change is noted in the right lower quadrant of the abdomen. Borderline aneurysmal enlargement of the infrarenal abdominal aorta measuring up to 3.0 cm diameter. Subcentimeter nodular opacities in the right lung base measuring up to 4-5 mm. Multiple bilateral renal cysts. Subcentimeter right adrenal myelolipoma. Pathologic Profile/ Molecular Data: Reviewed on September 25, 2019 1. 09/13/2019 Bone marrow sternal aspirate: Bone marrow aspirate, clot section and peripheral blood (A-B): - Non-diagnostic lymphoid aggregates, see comment. - Unremarkable maturing trilineage hematopoiesis. REVIEW OF SYSTEMS Per HPI and otherwise negative by full review of organ systems. ECOG PERFORMANCE STATUS: 0 PHYSICAL EXAMINATION: Vitals: BP 168/87 Pulse 72 Temp (Src) 97.8 (Temporal) Resp 18 Ht 5' 2.52 (1.59m) Wt 196 lb 3.2 oz (89.0kg) SpO2 98% BMI 35.29 kg/(m^2). Body surface area is 1.98 meters squared. Exam limited to gross visualization where appropriate. Gen.: This is an age-appropriate patient in no acute distress. Head: Appears atraumatic with no visible lesions. Eyes: Pupils equally round and reactive to light, extraocular muscles are intact. Neck: Supple. Respiratory: Appears to be respiring comfortably. Neurologic: Nonfocal to gross visualization. Alert and oriented 3. Psychiatric: No evidence of inappropriate anxiety or depression. Skin: Visible areas of skin without rash, lesions, wounds or petechiae. ALLERGIES: ALLERGIES Allergen Reactions Tetnus [Tetanus Vac* Unknown Vancomycin Unknown Burning sensation MEDICATIONS: benzonatate (TESSALON PERLE) 100 mg capsule TAKE 1 CAPSULE BY MOUTH EVERY 6 HOURS NEEDED FOR COUGH. cholecalciferol, vitamin D3, (VITAMIN D3 ORAL) Take by mouth. fostamatinib (TAVALISSE) 100 mg tablet Take 1 tablet by mouth twice daily. hydroCHLOROthiazide 25 mg tablet TAKE 1 TABLET BY MOUTH EVERY DAY losartan (COZAAR) 25 mg tablet Take 2 tablets by mouth daily at bedtime. pilocarpine (SALAGEN) 5 mg tablet TAKE 1 TABLET BY MOUTH THREE TIMES A DAY spironolactone (ALDACTONE) 25 mg tablet Take 25 mg by mouth once daily. LABORATORY VALUES: WBC (k/uL) Date Value 04/20/2023 4.88 RBC (m/uL) Date Value 04/20/2023 3.52 (L) Hemoglobin (g/dL) Date Value 04/20/2023 10.9 (L) Hematocrit (%) Date Value 04/20/2023 34.1 (L) MCV (fL) Date Value 04/20/2023 96.9 MCH (pg) Date Value 04/20/2023 31.0 MCHC (g/dL) Date Value 04/20/2023 32.0 RDW-CV (%) Date Value 04/20/2023 14.7 Platelet Count (k/uL) Date Value 04/20/2023 127 (L) MPV (fL) Date Value 04/20/2023 9.3 Glucose (mg/dL) Date Value 04/20/2023 134 (H) BUN (mg/dL) Date Value 04/20/2023 26 (H) Creatinine (mg/dL) Date Value 04/20/2023 1.05 (H) Sodium (mmol/L) Date Value 04/20/2023 140 Potassium (mmol/L) Date Value 04/20/2023 4.9 Chloride (mmol/L) Date Value 04/20/2023 102 CO2 (mmol/L) Date Value 04/20/2023 27 Protein, Total (g/dL) Date Value 04/20/2023 7.4 Albumin (g/dL) Date Value 04/20/2023 3.9 Calcium, Total (mg/dL) Date Value 04/20/2023 10.2 Alkaline Phosphatase (U/L) Date Value 04/20/2023 67 Bilirubin, Total (mg/dL) Date Value 04/20/2023 0.6 AST (U/L) Date Value 04/20/2023 38 (H) ALT (U/L) Date Value 04/20/2023 23 Cholesterol, Total (mg/dL) Date Value 03/30/2017 171 Triglyceride (mg/dL) Date Value 03/30/2017 118 DIAGNOSIS: (D69.3) Chronic ITP (idiopathic thrombocytopenia) (HCC) (primary encounter diagnosis) Plan: CBC + DIFF, COMP METABOLIC PANEL, IRON + TIBC, FERRITIN BLD, VITAMIN B12 BLOOD, FOLATE SERUM (I10) Essential hypertension PAST MEDICAL HISTORY Diagnosis Date Lupus (HCC) Thrombocytopenia (HCC) PAST SURGICAL HISTORY Procedure Laterality Date COLONSCOPY SCREENING HIGH RISK 07/25/2022 HYSTERECTOMY HX Social History Tobacco Use Smoking status: Light Smoker Types: Cigarettes Passive exposure: Past Smokeless tobacco: Never Vaping Use Vaping Use: Never used Substance Use Topics Alcohol use: No Drug use: No History reviewed. No pertinent family history. I spent a total of 30 minutes on the date of the service which included preparing to see the patient, [id number] patient care, completing clinical documentation, obtaining and/or reviewing separately obtained history, performing a medically appropriate examination, counseling and educating the patient/family/caregiver, ordering medications, tests, or procedures, independently interpreting results (not separately reported), communicating results to the patient/family/caregiver, and care coordination (not separately reported). Rinku Ramsey MD, CPE [facility]ology [facility] On[facility] Provided at: [place], [place] CC: Dr. Chadd Deluna documented in this encounter [facility] 04-19-2023 Miscellaneous Notes Patient has an appt on 04/20. Would you like labs? documented in this encounter [facility] 03-14-2023 Evaluation note Encounter Date Diagnosis Assessment Notes Mar, Complex renal cyst (ICD-10 - N28.1) [facility] Other 08-31-2023 NoteHNO ID: [id number] Author: Rinku Ramsey MD Service: ? Author Type: Physician Type: Progress Notes Filed: 03/13/2023 2:11 PM Note Text: NAME: LeoAndrei CLINIC NO.: [id number] DATE OF SERVICE: March 09, 2023 (Roxy) Some elements in this clinic note that are critical to medical decision making have been carefully reviewed and included from a prior clinic note dated: January 26, 2023 (Roxy) Additional Clinicians involved in Andrei Leo's care: Dr. Shay, Dr. Deluna CC: Chronic ITP ASSESSMENT/PLAN: 1. Thrombocytopenia (HCC) - ICD9: 287.5, ICD10: D69.6 (primary diagnosis) She has chronic ITP. She has repsonded to Rituxan in the past, most recently she was on Plaquenil (with a history of Lupus) and did not respond to this. Bone marrow biopsy September 13, 2019 showed unremarkable maturing trilineage hematopoiesis. Completed 4 weekly doses of Rituxan 11/2019 and platelet counts improved but still low. 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 - Continues to respond to Tavalisse started 05/2021. 2. Pulmonary nodules - ICD9: 793.19, ICD10: R91.8 : 12/31/2020 CT Chest stable. No new findings. 3. Lupus (HCC) - ICD9: 710.0, ICD10: M32.9: She is asymptomatic from Lupus of the skin. 4. 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 5. HTN - continue Losartan plus HCTZ and continue managing HTN. Improved control even on Tavalisse. 6. Read lesion - may need biopsy in future. PLAN: Continue Tavalisse 100 mg twice daily. Follow up in 6 weeks with labs. Treatment to Date: . 05/14/2021 - Current: Tavalisse 4. 10/31/2019 - 11/21/2019: Weekly Rituxan x 4 3. 04/11/2019 Plaquenil which she stopped 2. January 2019 Prednisone 1. 2017 Rituxan X 4 HPI: Updated Visit, March 09, 2023: Andrei returns and generally doing well. Although, she tells me, that her family members continue to struggle with health issues. Labs remain stable for her. Updated Visit, January 26, 2023: went to [place] with bad GB, brother's did of cancer, grand-nephew in [place] passed from ALL -- so she is stressed. Platelets stable at 122. LFT slightly elevated. Updated Visit, December 15, 2022: Doing well but mole is enlarging and bothering her on her left scalp. Platelets 113. Updated Visit, October 27, 2022: Doing well. Labs are great - platelets 119 Updated Visit, September 15, 2022: Andrei continues to do very well. Very busy with family life and issues. No new complaints. Updated Visit, August 04, 2022: Andrei Leo returns for follow-up. She remains on Tavalisse and is tolerating it well. She denies any bleeding or abnormal bruising. Since her last visit she had a colonoscopy and had polyps removed. She states that she was notified of the biopsy results which were negative. She is scheduled for a hearing test on 08/10/2022 and will then see ENT for follow-up on 08/30/2022. 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 Overall, she is doing well today with no new complaints. Updated Visit, June 23, 2022: Andrei is doing well on Tavalisse 100 mg BID. Plts 118. Right anterior read has a erythematous wide streak that throbs at night and is tender to touch. But it has been there for 6 months - 12/09/2021. I don't think this is an infection. She has edema in both legs. Will recommend trying Ice for 15 minutes at a time to see if she has some reduction in inflammation. It is possible that this is a manifestation of lupus. Will monitor. Consider a biopsy of skin if not resolved. Updated Visit, May 12, 2022: Andrei Leo returns for follow-up. She remains on Tavalisse 100 mg twice daily and is tolerating it well. There has been no significant medical changes since her last visit. She states that she is feeling okay. She states that she feels a sinus infection coming on. She noticed her right high becoming puffy which is a sign. She denies fevers and chills. No bleeding or abnormal bruising. She has a follow-up scheduled with nephrology in either June or July. She offers no new complaints today. No new issues, problems or concerns. Updated Visit, March 31, 2022: Andrei is 71 yo and returns in follow up for ITP currently controlled with fostamatinib. Seems to bruise more easily with blood draws. Labs are stable. Plts 119k, hgb 11.6 Tolerating Tavalisse without difficulty however, LFT will need to be monitored as they are slightly increased. Got back from [place] and saw her sisters and had a nice trip with her of 54 yrs. Updated Visit, February 11, 2022: Andrei Leo returns for scheduled follow-up. She remains on Tavalisse 100 mg twice daily and is tolerating it well. She denies any signs of bleeding or abnormal bruising. Also no signs of blood clots. She saw Dr. Gilson Troncoso today. She (more content not included)...[facility] 03-09-2023 Instructions* Patient Instructions* Rinku Ramsey MD - 03/09/2023 2:54 PM EDT Continue Tavalisse 100 mg twice daily. Follow up in 6 weeks with labs. [facility] History of Present illness Narrative* Rinku Ramsey MD - 03/09/2023 2:50 PM EDT Images from the original note were not included. NAME: Andrei Leo [facility] NO.: [id number] DATE OF SERVICE: March 09, 2023 (eduard) Some elements in this clinic note that are critical to medical decision making have been carefully reviewed and included from a prior clinic note dated: January 26, 2023 (Roxy) Additional Clinicians involved in Andrei Leo's care: Dr. Shay, Dr. Deluna CC: Chronic ITP ASSESSMENT/PLAN: 1. Thrombocytopenia (HCC) - ICD9: 287.5, ICD10: D69.6 (primary diagnosis) She has chronic ITP. She has repsonded to Rituxan in the past, most recently she was on Plaquenil (with a history of Lupus) and did not respond to this. Bone marrow biopsy September 13, 2019 showed unremarkable maturing trilineage hematopoiesis. Completed 4 weekly doses of Rituxan 11/2019 and platelet counts improved but still low. 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 - Continues to respond to Tavalisse started 05/2021. 2. Pulmonary nodules - ICD9: 793.19, ICD10: R91.8 : 12/31/2020 CT Chest stable. No new findings. 3. Lupus (HCC) - ICD9: 710.0, ICD10: M32.9: She is asymptomatic from Lupus of the skin. 4. 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 5. HTN - continue Losartan plus HCTZ and continue managing HTN. Improved control even on Tavalisse. 6. Read lesion - may need biopsy in future. PLAN: Continue Tavalisse 100 mg twice daily. Follow up in 6 weeks with labs. Treatment to Date: 05/14/2021 - Current: Tavalisse 4. 10/31/2019 - 11/21/2019: Weekly Rituxan x 4 3. 04/11/2019 Plaquenil which she stopped 2. January 2019 Prednisone 1. 2017 Rituxan X 4 HPI: Updated Visit, March 09, 2023: Andrei returns and generally doing well. Although, she tells me, that her family members continue to struggle with health issues. Labs remain stable for her. Updated Visit, January 26, 2023: went to [place] with bad [place], brother's did of cancer, grand-nephew in [place] passed from ALL-- so she is stressed. Platelets stable at 122. LFT slightly elevated. Updated Visit, December 15, 2022: Doing well but mole is enlarging and bothering her on her left scalp. Platelets 113. Updated Visit, October 27, 2022: Doing well. Labs are great - platelets 119 Updated Visit, September 15, 2022: Andrei continues to do very well. Very busy with family life and issues. No new complaints. Updated Visit, August 04, 2022: Andrei Leo returns for follow-up. She remains on Tavalisse and is tolerating it well. She deniesany bleeding or abnormal bruising. Since her last visit she had a colonoscopy and had polyps removed. She states that she was notified of the biopsy results which were negative. She is scheduled for a hearing test on 08/10/2022 and will then see ENT for follow-up on 08/30/2022. 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 Overall, she is doing well today with no new complaints. Updated Visit, June 23, 2022: Andrei is doing well on Tavalisse 100 mg BID. Plts 118. Right anterior read has a erythematous wide streak that throbs at night and is tender to touch. But it has been there for 6 months - 12/09/2021. I don't think this is an infection. She has edema inboth legs. Will recommend trying Ice for 15 minutes at a time to see if she has some reduction in inflammation. It is possible that this is a manifestation of lupus. Will monitor. Consider a biopsy of skin if not resolved. Updated Visit, May 12, 2022: Andrei Leo returns for follow-up. She remains on Tavalisse 100 mg twice daily and is tolerating it well. There has been no significant medical changes since her last visit. She states that she is feeling okay. She states that she feels a sinus infection coming on. She noticed her right high becoming puffy which is a sign. She denies fevers and chills. No bleeding or abnormal bruising. She has a follow-up scheduled with nephrology in either June or July. She offers no new complaints today. No new issues, problems or concerns. Updated Visit, March 31, 2022: Andrei is 71 yo and returns in follow up for ITP currently controlled with fostamatinib. Seems to bruise more easily with blood draws. Labs are stable. Plts 119k, hgb 11.6 Tolerating Tavalisse without difficulty however, LFT will need to be monitored as they are slightlyincreased. Got back from [place] and saw her sisters and had a nice trip with her of 54 yrs. Updated Visit, February 11, 2022: Andrei Leo returns for scheduled follow-up. She remains on Tavalisse 100 mg twice daily and is tolerating it well. She denies any signs of bleeding or abnormal bruising. Also no signs of blood clots. She saw Dr. Gilson Troncoso today. She states that she was told she has protein in her urine. She will have her next follow-up with nephrology in 6 months. She is stil having issues with her sinuses and plans to follow-up with the health clinic. She has ongoing issues with dry mouth. Overall, she is doing fairly well. Updated Visit, December 17, 2021: Andrei Leo returns for scheduled follow-up. She remains on Tavalisse and is tolerating it well. She denies any signs of bleeding or abnormal bruising. No signs of blood clots. She had a consultation with nephrology, Dr. Gilson Sarah. Dr. Sarah increased her losartan to 50 mg daily. He also ordered a renal ultrasound. She has a follow up scheduled in February. She complains today of leg cramps. Overall, she is doing well. 11/20/2021 Ultrasound retroperitoneal complete Impression: 1. No evidence of echogenic calculi or hydronephrosis. 2. There are bilateral renal cysts. Measurements as described above. (Copy scanned) Updated Visit, October 28, 2021: No AE's Platelets responding nicely HTN improved on Losartan but is still due to see nephrology. She is tired and stressed awaiting her niece's news. (Niece is in hospice due to pancreatic cancer). She's doing well and wants to continue current regimen of therapy. Updated Visit, September 16, 2021: Andrei Leo returns for follow-up. She remains on Tavalisse 100 mg twice daily and is tolerating it well. There has been no significant medical changes since her last visit. She denies bleeding andabnormal bruising. She continues to have a cough but states the cough is under control. The cough mainly occurs at night but not every night. She offers no new complaints today. No new issues, problems or concerns. Updated Visit, August 05, 2021: Mrs. Leo returns today and platelets continue to respond. We changed her anti-HTNives and her cough resolved, but today she notes she has a dry cough that returned this past Monday. Doubt this is due to medications. Will continue monitoring her. Updated Visit, July 16, 2021: Andrei Leo returns for follow-up. She remains on Tavalisse 100 mg twice daily and is tolerating it well. She questions if the medication can cause her to lose her hair. She had been taking Tessalon Perles which helped with the cough. After stopping for 1 week her cough came back. She recently resumed the Tessalon Perles. She is complaining of chronic left leg pain and plans to make an appointment to see an orthopedic surgeon. She canceled her nephrology appointment because she did not understand why she was going to see a mounting inspector for her blood pressure. Patient also has other mild medical issues and plans to get reestablished with a PCP. Overall, she is doing fairly well. Updated Visit, June 25, 2021: Andrei is 70 yo and returns in follow up for ITP currently on Tavalisse and tolerating it and responding to it very well. Platelets have remained stable and above 50k since starting on it in mid May 2021. BP is stable. Updated Visit, June 11, 2021: Andrei Leo returns for follow-up. She remains on tab Tavalisse, and is tolerating it well. Aftershe takes the Tavalisse, she gets a mota headache . It goes away very quickly. She denies any signs of bleeding or abnormal bruising. She still has cough despite stopping the lisinopril. She denies fevers, chills, night sweats and signs/symptoms of infection. Her granddaughter developed Covid after Thanksgiving. The patient tested and she is negative. She is currently watching her great grandchildren. She denies any diarrhea. Updated Visit, May 27, 2021: Returns to see response to Tavalisse which appears to be working nicely. Abdominal cramps and into ribs. Possibly dehydrated BP is better but Cough from Lisinopril persists and is keeping her up. Updated Visit, May 13, 2021: Still has high blood pressure and has some concern that lisinopril is causing a cough but her coughis not consistent with lisinopril - she has a tickle in her throat and has post nasal drip that induces it. She will need to stay on her HCTZ which is only intermittent right now. Will increase her lisinopril. Has chronic edema in left left that has had a skin graft. plts are 23 k today. Sinusitis is better. Updated Visit, April 29, 2021: Andrei Doesn't feel well today. 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 Sinus are full and she doesn't feel great. Additionally her plateltes have dropped below 50k again and since she has failed prior therapy, will try her on fostamatininb. Isn't tolerating HCTZ. Will try Lisinopril. Updated Visit, February 24, 2021: Labs are stable but her fatigue is prominent. She is caring for her and grand kids. TSH wasnormal. Updated Visit, January 27, 2021: Andrei Leo returns for scheduled follow-up. There has been no significant medical changes since her last visit. She denies bleeding and abnormal bruising. She complains of low energy. She has occasional exertional shortness of breath. She has a cough at night and relates it to sinus drainage. Overall, doing fairly well. Updated Visit, December 18, 2020: Tired during the day but not sleepy. HTN is notable Fatigue likely associated with weight gain Platelets are down today, will see her in 4 Weeks, recheck BP and platelets - consider tavalisse atthat time. Intermittent nose bleeds ? HTN vs. ITP - platelet count is not particularly low to cause that. Updated Visit, September 17, 2020: Andrei is 69 yo and returns to review labs. She never got seen for her elevated BP. I again cautionedher and urged her to get evaluated. She smokes a little with coffee, No alcohol Light headedness is improved but blood pressure is elevated and needs her PCP to make recommendations. She is beyond 10 years from her last colonoscopy and will need to schedule screening again. Platelets are stable and shouldn't interfere with any procedures that she may need. Updated Visit, June 25, 2020: Andrei is a very nice 69-year-old woman returning with a history of chronic ITP. She has stable counts but still having intermittent lightheadedness although less frequently. She states her cough is improved but often has a dry mouth. Corrected the prior notes- she isn't using CPAP at all, but only has mild apnea on recent re-check.I still believe that using CPAP may be of benefit to her. I recommended that she see her primary care physician for lightheadedness and dizziness at her lastvisit but she never made it. Updated Visit, April 02, 2020: Andrei is 69-year-old woman with history of ITP treated with Rituxan through November 2019. On return today, her platelets have been stable and improved. Her CPAP improved her overall fatigue and she is more compliant with usage. However, she reports having had 2 dizzy spells fairly recently and says she will follow-up with her primary care physician to work this up if it persists. She is requested Tessalon Perles again for her chronic intermittent cough. She is otherwise doing very well. Updated Visit, January 02, 2020: Andrei is 69 yo and is doing well. Platelets are stable. She is asymptomatic. If she stops responding, we will switch to Tavalisse. Updated Visit, December 05, 2019: Andrei is 69 years old and returns having completed Rituxan for 4 weekly doses. Her platelet counts are stable. She has no sequelae of thrombocytopenia. Reviewing her CBC shows white blood cell count 3.26, platelet count 83,000, H/H is 11.2/36.7. She reports daytime fatigue and a history of snoring having had a marginal sleep study in the past,she is much heavier now on I suspect that this may be contributing to her findings of both leukopenia and thrombocytopenia. I've encouraged her to obtain a sleep study. Her review of systems is otherwise negative by full review of organ systems. Updated Visit, October 31, 2019: Blow nose with slight bleeding with sneeze otherwise is asymptomatic. However, I am worried that she will have a more traumatic bleed. She is willing to proceed. Updated Visit, October 21, 2019: She is not on anything currently for her ITP. She has misty having her blood checked every three weeks and last week her platelet count was 24,000. She did notice some mild bruising. No bleeding. She does have fatigue. No new medications or infections. She does occasionally have a cough but this is not new for her. . Updated Visit, September 25, 2019: Returns -results are still pending from bone marrow studies but I spoke with the pathologist reading the slides and he indicated no significant acute pathology. Platelets are stable but slowly dropping, no petechiae reported or noted on visualization. She is aware of risks for bleeding especially if platelets drop precipitously. Exam limited to gross visualization where appropriate due to COVID-19. Updated Visit, September 13, 2019: Returns to review CT abdomen wich is essentially unremarkable for etiology of pain. CXR show lower lobe infiltrates consistent with her know upper respiratory tract infection and cough. She will be undergoing bone marrow aspirate in order to see if her marrow is intact and if she is making adequate platelets. Radiographic Data: Reviewed on January 27 2021. 3. 12/31/2020 CT Chest IMPRESSION: 1. Multiple subcentimeter nodular opacities measuring up to 7 mm (30-40) stable since 12/19/2019. If clinically indicated, consider one-year follow-up. 2. No interval changesince 12/19/2019. 2. 12/31/2020 CT chest IMPRESSION: 1. Multiple subcentimeter nodular opacities measuring up to 7 mm (30-40) stable since 12/19/2019. If clinically indicated, consider one-year follow-up. 2. No interval change since 12/19/2019. 1. 09/04/2019: CT abd/Pelvis w/: No evidence of bowel obstruction or pericolic inflammatory change. The appendix is not visualized but no evidence of inflammatory change is noted in the right lower quadrant of the abdomen. Borderline aneurysmal enlargement of the infrarenal abdominal aorta measuringup to 3.0 cm diameter. Subcentimeter nodular opacities in the right lung base measuring up to 4-5 mm. Multiple bilateral renal cysts. Subcentimeter right adrenal myelolipoma. Pathologic Profile/ Molecular Data: Reviewed on September 25, 2019 1. 09/13/2019 Bone marrow sternal aspirate: Bone marrow aspirate, clot section and peripheral blood (A-B): - Non-diagnostic lymphoid aggregates, see comment. - Unremarkable maturing trilineage hematopoiesis. REVIEW OF SYSTEMS Per HPI and otherwise negative by full review of organ systems. ECOG PERFORMANCE STATUS: 0 PHYSICAL EXAMINATION: Vitals: BP 143/76 Pulse 71 Temp (Src) 97.6 (Temporal) Resp 16 Ht 5' 2.52 (1.59m) Wt 194 lb 9.6 oz (88.3kg) SpO2 95% BMI 35.00 kg/(m^2). Body surface area is 1.97 meters squared. Exam limited to gross visualization where appropriate. Gen.: This is an age-appropriate patient in no acute distress. Head: Appears atraumatic with no visible lesions. Eyes: Pupils equally round and reactive to light, extraocular muscles are intact. Neck: Supple. Respiratory: Appears to be respiring comfortably. Neurologic: Nonfocal to gross visualization. Alert and oriented 3. Psychiatric: No evidence of inappropriate anxiety or depression. Skin: Visible areas of skin without rash, lesions, wounds or petechiae. ALLERGIES: ALLERGIES Allergen Reactions Tetnus [Tetanus Vac* Unknown Vancomycin Unknown Burning sensation MEDICATIONS: pilocarpine (SALAGEN) 5 mg tablet TAKE 1 TABLET BY MOUTH THREE TIMES A DAY hydroCHLOROthiazide 25 mg tablet TAKE 1 TABLET BY MOUTH EVERY DAY losartan (COZAAR) 25 mg tablet Take 2 tablets by mouth daily at bedtime. spironolactone (ALDACTONE) 25 mg tablet Take 25 mg by mouth once daily. benzonatate (TESSALON PERLE) 100 mg capsule TAKE 1 CAPSULE BY MOUTH EVERY 6 HOURS NEEDED FOR COUGH. fostamatinib (TAVALISSE) 100 mg tablet Take 1 tablet by mouth twice daily. cholecalciferol, vitamin D3, (VITAMIN D3 ORAL) Take by mouth. LABORATORY VALUES: WBC (k/uL) Date Value 03/09/2023 4.80 RBC (m/uL) Date Value 03/09/2023 3.63 (L) Hemoglobin (g/dL) Date Value 03/09/2023 11.1 (L) Hematocrit (%) Date Value 03/09/2023 34.9 (L) MCV (fL) Date Value 03/09/2023 96.1 MCH (pg) Date Value 03/09/2023 30.6 MCHC (g/dL) Date Value 03/09/2023 31.8 RDW-CV (%) Date Value 03/09/2023 14.3 Platelet Count (k/uL) Date Value 03/09/2023 110 (L) MPV (fL) Date Value 03/09/2023 9.8 Glucose (mg/dL) Date Value 03/09/2023 107 (H) BUN (mg/dL) Date Value 03/09/2023 25 (H) Creatinine (mg/dL) Date Value 03/09/2023 1.19 (H) Sodium (mmol/L) Date Value 03/09/2023 138 Potassium (mmol/L) Date Value 03/09/2023 4.6 Chloride (mmol/L) Date Value 03/09/2023 106 (H) CO2 (mmol/L) Date Value 03/09/2023 25 Protein, Total (g/dL) Date Value 03/09/2023 7.5 Albumin (g/dL) Date Value 03/09/2023 4.0 Calcium, Total (mg/dL) Date Value 03/09/2023 9.3 Alkaline Phosphatase (U/L) Date Value 03/09/2023 75 Bilirubin, Total (mg/dL) Date Value 03/09/2023 0.6 AST (U/L) Date Value 03/09/2023 54 (H) ALT (U/L) Date Value 03/09/2023 43 (H) Cholesterol, Total (mg/dL) Date Value 03/30/2017 171 Triglyceride (mg/dL) Date Value 03/30/2017 118 DIAGNOSIS: (D69.3) Chronic ITP (idiopathic thrombocytopenia) (HCC) (primary encounter diagnosis) (I10) Essential hypertension (G47.33) Obstructive sleep apnea syndrome (M32.9) Systemic lupus erythematosus, unspecified SLE type, unspecified organ involvement status (HCC) PAST MEDICAL HISTORY Diagnosis Date Lupus (HCC) Thrombocytopenia (HCC) PAST SURGICAL HISTORY Procedure Laterality Date COLONSCOPY SCREENING HIGH RISK 07/25/2022 HYSTERECTOMY HX Social History Tobacco Use Smoking status: Light Smoker Types: Cigarettes Passive exposure: Past Smokeless tobacco: Never Vaping Use Vaping Use: Never used Substance Use Topics Alcohol use: No Drug use: No History reviewed. No pertinent family history. I spent a total of 20 minutes on the date of the service which included preparing to see the patient, [id number] patient care, completing clinical documentation, performing a medically appropriate examination, counseling and educating the patient/family/caregiver, ordering medications, tests, or p rocedures, and independently interpreting results (not separately reported). Rinku Ramsey MD, CPE Hematology and Oncology Services Provided at: [place], [place] CC: Dr. Chadd Deluna [facility] NoteHNO ID: [id number] Author: Rinku Ramsey MD Service: ? Author Type: Physician Type: Progress Notes Filed: 01/26/2023 3:16 PM Note Text: NAME: Abe Andrei [facility] NO.: [id number] DATE OF SERVICE: January 26, 2023 ([email or web address]) Some elements in this clinic note that are critical to medical decision making have been carefully reviewed and included from a prior clinic note dated: December 15, 2022 (Roxy) Additional Clinicians involved in Andrei Leo's care: Dr. Shay, Dr. Deluna CC: Chronic ITP ASSESSMENT/PLAN: 1. Thrombocytopenia (HCC) - ICD9: 287.5, ICD10: D69.6 (primary diagnosis) She has chronic ITP. She has repsonded to Rituxan in the past, most recently she was on Plaquenil (with a history of Lupus) and did not respond to this. Bone marrow biopsy September 13, 2019 showed unremarkable maturing trilineage hematopoiesis. Completed 4 weekly doses of Rituxan 11/2019 and platelet counts improved but still low. 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 - Continues to respond to Tavalisse started 05/2021. 2. Pulmonary nodules - ICD9: 793.19, ICD10: R91.8 : 12/31/2020 CT Chest stable. No new findings. 3. Lupus (HCC) - ICD9: 710.0, ICD10: M32.9: She is asymptomatic from Lupus of the skin. 4. 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 5. HTN - continue Losartan plus HCTZ and continue managing HTN. Improved control even on Tavalisse. 6. Read lesion - may need biopsy in future. PLAN: Continue Tavalisse 100 mg twice daily. Follow up in 6 weeks with labs. Treatment to Date: . 05/14/2021 - Current: Tavalisse 4. 10/31/2019 - 11/21/2019: Weekly Rituxan x 4 3. 04/11/2019 Plaquenil which she stopped 2. January 2019 Prednisone 1. 2017 Rituxan X 4 HPI: Updated Visit, January 26, 2023: went to [place] with bad [place], brother's did of cancer, grand-nephew in [place] passed from ALL -- so she is stressed. Platelets stable at 122. LFT slightly elevated. Updated Visit, December 15, 2022: Doing well but mole is enlarging and bothering her on her left scalp. Platelets 113. Updated Visit, October 27, 2022: Doing well. Labs are great - platelets 119 Updated Visit, September 15, 2022: Andrei continues to do very well. Very busy with family life and issues. No new complaints. Updated Visit, August 04, 2022: Andrei Leo returns for follow-up. She remains on Tavalisse and is tolerating it well. She denies any bleeding or abnormal bruising. Since her last visit she had a colonoscopy and had polyps removed. She states that she was notified of the biopsy results which were negative. She is scheduled for a hearing test on 08/10/2022 and will then see ENT for follow-up on 08/30/2022. 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 Overall, she is doing well today with no new complaints. Updated Visit, June 23, 2022: Andrei is doing well on Tavalisse 100 mg BID. Plts 118. Right anterior read has a erythematous wide streak that throbs at night and is tender to touch. But it has been there for 6 months - 12/09/2021. I don't think this is an infection. She has edema in both legs. Will recommend trying Ice for 15 minutes at a time to see if she has some reduction in inflammation. It is possible that this is a manifestation of lupus. Will monitor. Consider a biopsy of skin if not resolved. Updated Visit, May 12, 2022: Andrei Leo returns for follow-up. She remains on Tavalisse 100 mg twice daily and is tolerating it well. There has been no significant medical changes since her last visit. She states that she is feeling okay. She states that she feels a sinus infection coming on. She noticed her right high becoming puffy which is a sign. She denies fevers and chills. No bleeding or abnormal bruising. She has a follow-up scheduled with nephrology in either June or July. She offers no new complaints today. No new issues, problems or concerns. Updated Visit, March 31, 2022: Andrei is 71 yo and returns in follow up for ITP currently controlled with fostamatinib. Seems to bruise more easily with blood draws. Labs are stable. Plts 119k, hgb 11.6 Tolerating Tavalisse without difficulty however, LFT will need to be monitored as they are slightly increased. Got back from [place] and saw her sisters and had a nice trip with her of 54 yrs. Updated Visit, February 11, 2022: Andrei Leo returns for scheduled follow-up. She remains on Tavalisse 100 mg twice daily and is tolerating it well. She denies any signs of bleeding or abnormal bruising. Also no signs of blood clots. She saw Dr. Gilson Troncoso today. She states that she was told she has protein in her urine. She will have her next follow-up with nephrology in 6 months. She is stil having issues with her sinuses and plans to follow-up with the (more content not included)...[facility]07-20-2023 Instructions * Patient Instructions* Rinku Ramsey MD - 01/26/2023 3:14 PM EDT Continue Tavalisse 100 mg twice daily. Follow up in 6 weeks with labs. documented [facility]Tr[facility] History of Present illness Narrative* Rinku Ramsey MD - 01/26/2023 3:10 PM EDT NAME: Andrei Leo [facility] NO.: [id number] DATE OF SERVICE: January 26, 2023 ([email or web address]) Some elements in this clinic note that are critical to medical decision making have been carefully reviewed and included from a prior clinic note dated: December 15, 2022 (Roxy) Additional Clinicians involved in Andrei Leo's care: Dr. Shay, Dr. Deluna CC: Chronic ITP ASSESSMENT/PLAN: 1. Thrombocytopenia (HCC) - ICD9: 287.5, ICD10: D69.6 (primary diagnosis) She has chronic ITP. She has repsonded to Rituxan in the past, most recently she was on Plaquenil (with a history of Lupus) and did not respond to this. Bone marrow biopsy September 13, 2019 showed unremarkable maturing trilineage hematopoiesis. Completed 4 weekly doses of Rituxan 11/2019 and platelet counts improved but still low. 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 - Continues to respond to Tavalisse started 05/2021. 2. Pulmonary nodules - ICD9: 793.19, ICD10: R91.8 : 12/31/2020 CT Chest stable. No new findings. 3. Lupus (HCC) - ICD9: 710.0, ICD10: M32.9: She is asymptomatic from Lupus of the skin. 4. 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 5. HTN - continue Losartan plus HCTZ and continue managing HTN. Improved control even on Tavalisse. 6. Read lesion - may need biopsy in future. PLAN: Continue Tavalisse 100 mg twice daily. Follow up in 6 weeks with labs. Treatment to Date: 05/14/2021 - Current: Tavalisse 4. 10/31/2019 - 11/21/2019: Weekly Rituxan x 4 3. 04/11/2019 Plaquenil which she stopped 2. January 2019 Prednisone 1. 2017 Rituxan X 4 HPI: Updated Visit, January 26, 2023: went to [place] with bad [place], brother's did of cancer, grand-nephew in [place] passed from ALL-- so she is stressed. Platelets stable at 122. LFT slightly elevated. Updated Visit, December 15, 2022: Doing well but mole is enlarging and bothering her on her left scalp. Platelets 113. Updated Visit, October 27, 2022: Doing well. Labs are great - platelets 119 Updated Visit, September 15, 2022: Andrei continues to do very well. Very busy with family life and issues. No new complaints. Updated Visit, August 04, 2022: Andrei Leo returns for follow-up. She remains on Tavalisse and is tolerating it well. She deniesany bleeding or abnormal bruising. Since her last visit she had a colonoscopy and had polyps removed. She states that she was notified of the biopsy results which were negative. She is scheduled for a hearing test on 08/10/2022 and will then see ENT for follow-up on 08/30/2022. 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 Overall, she is doing well today with no new complaints. Updated Visit, June 23, 2022: Andrei is doing well on Tavalisse 100 mg BID. Plts 118. Right anterior read has a erythematous wide streak that throbs at night and is tender to touch. But it has been there for 6 months - 12/09/2021. I don't think this is an infection. She has edema inboth legs. Will recommend trying Ice for 15 minutes at a time to see if she has some reduction in inflammation. It is possible that this is a manifestation of lupus. Will monitor. Consider a biopsy of skin if not resolved. Updated Visit, May 12, 2022: Andrei Leo returns for follow-up. She remains on Tavalisse 100 mg twice daily and is tolerating it well. There has been no significant medical changes since her last visit. She states that she is feeling okay. She states that she feels a sinus infection coming on. She noticed her right high becoming puffy which is a sign. She denies fevers and chills. No bleeding or abnormal bruising. She has a follow-up scheduled with nephrology in either June or July. She offers no new complaints today. No new issues, problems or concerns. Updated Visit, March 31, 2022: Andrei is 71 yo and returns in follow up for ITP currently controlled with fostamatinib. Seems to bruise more easily with blood draws. Labs are stable. Plts 119k, hgb 11.6 Tolerating Tavalisse without difficulty however, LFT will need to be monitored as they are slightlyincreased. Got back from [place] and saw her sisters and had a nice trip with her of 54 yrs. Updated Visit, February 11, 2022: Andrei Leo returns for scheduled follow-up. She remains on Tavalisse 100 mg twice daily and is tolerating it well. She denies any signs of bleeding or abnormal bruising. Also no signs of blood clots. She saw Dr. Gilson Troncoso today. She states that she was told she has protein in her urine. She will have her next follow-up with nephrology in 6 months. She is stil having issues with her sinuses and plans to follow-up with the health clinic. She has ongoing issues with dry mouth. Overall, she is doing fairly well. Updated Visit, December 17, 2021: Andrei Leo returns for scheduled follow-up. She remains on Tavalisse and is tolerating it well. She denies any signs of bleeding or abnormal bruising. No signs of blood clots. She had a consultation with nephrology, Dr. Gilson Sarah. Dr. Sarah increased her losartan to 50 mg daily. He also ordered a renal ultrasound. She has a follow up scheduled in February. She complains today of leg cramps. Overall, she is doing well. 11/20/2021 Ultrasound retroperitoneal complete Impression: 1. No evidence of echogenic calculi or hydronephrosis. 2. There are bilateral renal cysts. Measurements as described above. (Copy scanned) Updated Visit, October 28, 2021: No AE's Platelets responding nicely HTN improved on Losartan but is still due to see nephrology. She is tired and stressed awaiting her niece's news. (Niece is in hospice due to pancreatic cancer). She's doing well and wants to continue current regimen of therapy. Updated Visit, September 16, 2021: Andrei Leo returns for follow-up. She remains on Tavalisse 100 mg twice daily and is tolerating it well. There has been no significant medical changes since her last visit. She denies bleeding andabnormal bruising. She continues to have a cough but states the cough is under control. The cough mainly occurs at night but not every night. She offers no new complaints today. No new issues, problems or concerns. Updated Visit, August 05, 2021: Mrs. Leo returns today and platelets continue to respond. We changed her anti-HTNives and her cough resolved, but today she notes she has a dry cough that returned this past Monday. Doubt this is due to medications. Will continue monitoring her. Updated Visit, July 16, 2021: Andrei Leo returns for follow-up. She remains on Tavalisse 100 mg twice daily and is tolerating it well. She questions if the medication can cause her to lose her hair. She had been taking Tessalon Perles which helped with the cough. After stopping for 1 week her cough came back. She recently resumed the Tessalon Perles. She is complaining of chronic left leg pain and plans to make an appointment to see an orthopedic surgeon. She canceled her nephrology appointment because she did not understand why she was going to see a mounting inspector for her blood pressure. Patient also has other mild medical issues and plans to get reestablished with a PCP. Overall, she is doing fairly well. Updated Visit, June 25, 2021: Andrei is 70 yo and returns in follow up for ITP currently on Tavalisse and tolerating it and responding to it very well. Platelets have remained stable and above 50k since starting on it in mid May 2021. BP is stable. Updated Visit, June 11, 2021: Andrei Leo returns for follow-up. She remains on tab Tavalisse, and is tolerating it well. Aftershe takes the Tavalisse, she gets a mota headache . It goes away very quickly. She denies any signs of bleeding or abnormal bruising. She still has cough despite stopping the lisinopril. She denies fevers, chills, night sweats and signs/symptoms of infection. Her granddaughter developed Covid after Thanksgiving. The patient tested and she is negative. She is currently watching her great grandchildren. She denies any diarrhea. Updated Visit, May 27, 2021: Returns to see response to Tavalisse which appears to be working nicely. Abdominal cramps and into ribs. Possibly dehydrated BP is better but Cough from Lisinopril persists and is keeping her up. Updated Visit, May 13, 2021: Still has high blood pressure and has some concern that lisinopril is causing a cough but her coughis not consistent with lisinopril - she has a tickle in her throat and has post nasal drip that induces it. She will need to stay on her HCTZ which is only intermittent right now. Will increase her lisinopril. Has chronic edema in left left that has had a skin graft. plts are 23 k today. Sinusitis is better. Updated Visit, April 29, 2021: Andrei Doesn't feel well today. 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 Sinus are full and she doesn't feel great. Additionally her plateltes have dropped below 50k again and since she has failed prior therapy, will try her on fostamatininb. Isn't tolerating HCTZ. Will try Lisinopril. Updated Visit, February 24, 2021: Labs are stable but her fatigue is prominent. She is caring for her and grand kids. TSH wasnormal. Updated Visit, January 27, 2021: Andrei Leo returns for scheduled follow-up. There has been no significant medical changes since her last visit. She denies bleeding and abnormal bruising. She complains of low energy. She has occasional exertional shortness of breath. She has a cough at night and relates it to sinus drainage. Overall, doing fairly well. Updated Visit, December 18, 2020: Tired during the day but not sleepy. HTN is notable Fatigue likely associated with weight gain Platelets are down today, will see her in 4 Weeks, recheck BP and platelets - consider tavalisse atthat time. Intermittent nose bleeds ? HTN vs. ITP - platelet count is not particularly low to cause that. Updated Visit, September 17, 2020: Andrei is 69 yo and returns to review labs. She never got seen for her elevated BP. I again cautionedher and urged her to get evaluated. She smokes a little with coffee, No alcohol Light headedness is improved but blood pressure is elevated and needs her PCP to make recommendations. She is beyond 10 years from her last colonoscopy and will need to schedule screening again. Platelets are stable and shouldn't interfere with any procedures that she may need. Updated Visit, June 25, 2020: Andrei is a very nice 69-year-old woman returning with a history of chronic ITP. She has stable counts but still having intermittent lightheadedness although less frequently. She states her cough is improved but often has a dry mouth. Corrected the prior notes- she isn't using CPAP at all, but only has mild apnea on recent re-check.I still believe that using CPAP may be of benefit to her. I recommended that she see her primary care physician for lightheadedness and dizziness at her lastvisit but she never made it. Updated Visit, April 02, 2020: Andrei is 69-year-old woman with history of ITP treated with Rituxan through November 2019. On return today, her platelets have been stable and improved. Her CPAP improved her overall fatigue and she is more compliant with usage. However, she reports having had 2 dizzy spells fairly recently and says she will follow-up with her primary care physician to work this up if it persists. She is requested Tesdengon Thiago again for her chronic intermittent cough. She is otherwise doing very well. Updated Visit, January 02, 2020: Andrei is 69 yo and is doing well. Platelets are stable. She is asymptomatic. If she stops responding, we will switch to Tavalisse. Updated Visit, December 05, 2019: Andrei is 69 years old and returns having completed Rituxan for 4 weekly doses. Her platelet counts are stable. She has no sequelae of thrombocytopenia. Reviewing her CBC shows white blood cell count 3.26, platelet count 83,000, H/H is 11.2/36.7. She reports daytime fatigue and a history of snoring having had a marginal sleep study in the past,she is much heavier now on I suspect that this may be contributing to her findings of both leukopenia and thrombocytopenia. I've encouraged her to obtain a sleep study. Her review of systems is otherwise negative by full review of organ systems. Updated Visit, October 31, 2019: Blow nose with slight bleeding with sneeze otherwise is asymptomatic. However, I am worried that she will have a more traumatic bleed. She is willing to proceed. Updated Visit, October 21, 2019: She is not on anything currently for her ITP. She has misty having her blood checked every three weeks and last week her platelet count was 24,000. She did notice some mild bruising. No bleeding. She does have fatigue. No new medications or infections. She does occasionally have a cough but this is not new for her. . Updated Visit, September 25, 2019: Returns -results are still pending from bone marrow studies but I spoke with the pathologist reading the slides and he indicated no significant acute pathology. Platelets are stable but slowly dropping, no petechiae reported or noted on visualization. She is aware of risks for bleeding especially if platelets drop precipitously. Exam limited to gross visualization where appropriate due to COVID-19. Updated Visit, September 13, 2019: Returns to review CT abdomen wich is essentially unremarkable for etiology of pain. CXR show lower lobe infiltrates consistent with her know upper respiratory tract infection and cough. She will be undergoing bone marrow aspirate in order to see if her marrow is intact and if she is making adequate platelets. Radiographic Data: Reviewed on January 27 2021. 3. 12/31/2020 CT Chest IMPRESSION: 1. Multiple subcentimeter nodular opacities measuring up to 7 mm (30-40) stable since 12/19/2019. If clinically indicated, consider one-year follow-up. 2. No interval changesince 12/19/2019. 2. 12/31/2020 CT chest IMPRESSION: 1. Multiple subcentimeter nodular opacities measuring up to 7 mm (30-40) stable since 12/19/2019. If clinically indicated, consider one-year follow-up. 2. No interval change since 12/19/2019. 1. 09/04/2019: CT abd/Pelvis w/: No evidence of bowel obstruction or pericolic inflammatory change. The appendix is not visualized but no evidence of inflammatory change is noted in the right lower quadrant of the abdomen. Borderline aneurysmal enlargement of the infrarenal abdominal aorta measuringup to 3.0 cm diameter. Subcentimeter nodular opacities in the right lung base measuring up to 4-5 mm. Multiple bilateral renal cysts. Subcentimeter right adrenal myelolipoma. Pathologic Profile/ Molecular Data: Reviewed on September 25, 2019 1. 09/13/2019 Bone marrow sternal aspirate: Bone marrow aspirate, clot section and peripheral blood (A-B): - Non-diagnostic lymphoid aggregates, see comment. - Unremarkable maturing trilineage hematopoiesis. REVIEW OF SYSTEMS Per HPI and otherwise negative by full review of organ systems. ECOG PERFORMANCE STATUS: 0 PHYSICAL EXAMINATION: Vitals: BP 147/77 Pulse 75 Temp (Src) 97.6 (Temporal) Resp 18 Ht 5' 2.52 (1.59m) Wt 196 lb 6.4 oz (89.1kg) SpO2 98% BMI 35.33 kg/(m^2). Body surface area is 1.98 meters squared. Exam limited to gross visualization where appropriate. Gen.: This is an age-appropriate patient in no acute distress. Head: Appears atraumatic with no visible lesions. Eyes: Pupils equally round and reactive to light, extraocular muscles are intact. Neck: Supple. Respiratory: Appears to be respiring comfortably. Neurologic: Nonfocal to gross visualization. Alert and oriented 3. Psychiatric: No evidence of inappropriate anxiety or depression. Skin: Visible areas of skin without rash, lesions, wounds or petechiae. ALLERGIES: ALLERGIES Allergen Reactions Tetnus [Tetanus Vac* Unknown Vancomycin Unknown Burning sensation MEDICATIONS: hydroCHLOROthiazide 25 mg tablet TAKE 1 TABLET BY MOUTH EVERY DAY pilocarpine (SALAGEN) 5 mg tablet TAKE 1 TABLET BY MOUTH THREE TIMES A DAY losartan (COZAAR) 25 mg tablet Take 2 tablets by mouth daily at bedtime. spironolactone (ALDACTONE) 25 mg tablet Take 25 mg by mouth once daily. benzonatate (TESSALON PERLE) 100 mg capsule TAKE 1 CAPSULE BY MOUTH EVERY 6 HOURS NEEDED FOR COUGH. fostamatinib (TAVALISSE) 100 mg tablet Take 1 tablet by mouth twice daily. cholecalciferol, vitamin D3, (VITAMIN D3 ORAL) Take by mouth. LABORATORY VALUES: WBC (k/uL) Date Value 01/26/2023 5.37 RBC (m/uL) Date Value 01/26/2023 3.78 (L) Hemoglobin (g/dL) Date Value 01/26/2023 11.4 (L) Hematocrit (%) Date Value 01/26/2023 36.8 MCV (fL) Date Value 01/26/2023 97.4 MCH (pg) Date Value 01/26/2023 30.2 MCHC (g/dL) Date Value 01/26/2023 31.0 RDW-CV (%) Date Value 01/26/2023 15.2 (H) Platelet Count (k/uL) Date Value 01/26/2023 122 (L) MPV (fL) Date Value 01/26/2023 10.1 Glucose (mg/dL) Date Value 01/26/2023 103 (H) BUN (mg/dL) Date Value 01/26/2023 24 (H) Creatinine (mg/dL) Date Value 01/26/2023 0.97 (H) Sodium (mmol/L) Date Value 01/26/2023 138 Potassium (mmol/L) Date Value 01/26/2023 4.2 Chloride (mmol/L) Date Value 01/26/2023 102 CO2 (mmol/L) Date Value 01/26/2023 29 Protein, Total (g/dL) Date Value 01/26/2023 7.7 Albumin (g/dL) Date Value 01/26/2023 3.9 Calcium, Total (mg/dL) Date Value 01/26/2023 9.5 Alkaline Phosphatase (U/L) Date Value 01/26/2023 80 Bilirubin, Total (mg/dL) Date Value 01/26/2023 0.8 AST (U/L) Date Value 01/26/2023 75 (H) ALT (U/L) Date Value 01/26/2023 46 (H) Cholesterol, Total (mg/dL) Date Value 03/30/2017 171 Triglyceride (mg/dL) Date Value 03/30/2017 118 DIAGNOSIS: (D69.3) Chronic ITP (idiopathic thrombocytopenia) (HCC) (primary encounter diagnosis) (I10) Hypertension, unspecified type (G47.33) Obstructive sleep apnea syndrome PAST MEDICAL HISTORY Diagnosis Date Lupus (HCC) Thrombocytopenia (HCC) PAST SURGICAL HISTORY Procedure Laterality Date COLONSCOPY SCREENING HIGH RISK 07/25/2022 HYSTERECTOMY HX Social History Tobacco Use Smoking status: Light Smoker Types: Cigarettes Passive exposure: Past Smokeless tobacco: Never Vaping Use Vaping Use: Never used Substance Use Topics Alcohol use: No Drug use: No History reviewed. No pertinent family history. I spent a total of 20 minutes on the date of the service which included preparing to see the patient, [id number] patient care, completing clinical documentation, performing a medically appropriate examination, counseling and educating the patient/family/caregiver, ordering medications, tests, or p rocedures, and independently interpreting results (not separately reported). Rinku Ramsey MD, CPE Hematology [facility] Oncology Services Provided at: [place], [place] CC: Dr. Chadd Deluna [facility] NoteHNO ID: [id number] Author: Rinku Ramsey MD Service: ? Author Type: Physician Type: Progress Notes Filed: 12/15/2022 2:41 PM Note Text: NAME: Andrei Leo [facility] NO.: [id number] DATE OF SERVICE: December [facility], 2022 [facility] Some elements in this clinic note that are critical to medical decision making have been carefully reviewed and included from a prior clinic note dated: October 27, 2022 (Roxy) Additional Clinicians involved in Andrei Leo's care: Dr. Shay, Dr. Deluna CC: Chronic ITP ASSESSMENT/PLAN: 1. Thrombocytopenia (HCC) - ICD9: 287.5, ICD10: D69.6 (primary diagnosis) She has chronic ITP. She has repsonded to Rituxan in the past, most recently she was on Plaquenil (with a history of Lupus) and did not respond to this. Bone marrow biopsy September 13, 2019 showed unremarkable maturing trilineage hematopoiesis. Completed 4 weekly doses of Rituxan 11/2019 and platelet counts improved but still low. 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 - Continues to respond to Tavalisse started 05/2021. 2. Pulmonary nodules - ICD9: 793.19, ICD10: R91.8 : 12/31/2020 CT Chest stable. No new findings. 3. Lupus (HCC) - ICD9: 710.0, ICD10: M32.9: She is asymptomatic from Lupus of the skin. 4. 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 5. HTN - continue Losartan plus HCTZ and continue managing HTN. Improved control even on Tavalisse. 6. Read lesion - may need biopsy in future. PLAN: Continue Tavalisse 100 mg twice daily. Follow up in 6 weeks with labs. Treatment to Date: . 05/14/2021 - Current: Tavalisse 4. 10/31/2019 - 11/21/2019: Weekly Rituxan x 4 3. 04/11/2019 Plaquenil which she stopped 2. January 2019 Prednisone . 2017 Rituxan X 4 HPI: Updated Visit, December 15, 2022: Doing well but mole is enlarging and bothering her on her left scalp. Platelets 113. Updated Visit, October 27, 2022: Doing well. Labs are great - platelets 119 Updated Visit, September 15, 2022: Andrei continues to do very well. Very busy with family life and issues. No new complaints. Updated Visit, August 04, 2022: Andrei Leo returns for follow-up. She remains on Tavalisse and is tolerating it well. She denies any bleeding or abnormal bruising. Since her last visit she had a colonoscopy and had polyps removed. She states that she was notified of the biopsy results which were negative. She is scheduled for a hearing test on 08/10/2022 and will then see ENT for follow-up on 08/30/2022. 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 Overall, she is doing well today with no new complaints. Updated Visit, June 23, 2022: Andrei is doing well on Tavalisse 100 mg BID. Plts 118. Right anterior read has a erythematous wide streak that throbs at night and is tender to touch. But it has been there for 6 months - 12/09/2021. I don't think this is an infection. She has edema in both legs. Will recommend trying Ice for 15 minutes at a time to see if she has some reduction in inflammation. It is possible that this is a manifestation of lupus. Will monitor. Consider a biopsy of skin if not resolved. Updated Visit, May 12, 2022: Andrei Leo returns for follow-up. She remains on Tavalisse 100 mg twice daily and is tolerating it well. There has been no significant medical changes since her last visit. She states that she is feeling okay. She states that she feels a sinus infection coming on. She noticed her right high becoming puffy which is a sign. She denies fevers and chills. No bleeding or abnormal bruising. She has a follow-up scheduled with nephrology in either June or July. She offers no new complaints today. No new issues, problems or concerns. Updated Visit, March 31, 2022: Andrei is 71 yo and returns in follow up for ITP currently controlled with fostamatinib. Seems to bruise more easily with blood draws. Labs are stable. Plts 119k, hgb 11.6 Tolerating Tavalisse without difficulty however, LFT will need to be monitored as they are slightly increased. Got back from [place] and saw her sisters and had a nice trip with her of 54 yrs. Updated Visit, February 11, 2022: Andrei Leo returns for scheduled follow-up. She remains on Tavalisse 100 mg twice daily and is tolerating it well. She denies any signs of bleeding or abnormal bruising. Also no signs of blood clots. She saw Dr. Gilson Troncoso today. She states that she was told she has protein in her urine. She will have her next follow-up with nephrology in 6 months. She is stil having issues with her sinuses and plans to follow-up with the health clinic. She has ongoing issues with dry mouth. Overall, she is doing fairly well. Updated Visit, December 17, 2021: Andrei Leo returns for scheduled follow-up. She remains on Tavalisse and is meek (more content not included)...[facility]06-08-2023 Instructions* Patient Instructions* Rinku Ramsey MD - 12/15/2022 2:39 PM EDT Continue Tavalisse 100 mg twice daily. Follow up in 6 weeks with labs. documented in [facility]Tr[facility] History of Present illness Narrative* Rinku Ramsey MD - 12/15/2022 2:35 PM EDT Images from the original note were not included. NAME: Andrei Leo CLINIC NO.: [id number] DATE OF SERVICE: December 15, 2022 (Roxy) Some elements in this clinic note that are critical to medical decision making have been carefully reviewed and included from a prior clinic note dated: October 27, 2022 ([email or web address]) Additional Clinicians involved in Andrei Leo's care: Dr. Shay, Dr. Deluna CC: Chronic ITP ASSESSMENT/PLAN: 1. Thrombocytopenia (HCC) - ICD9: 287.5, ICD10: D69.6 (primary diagnosis) She has chronic ITP. She has repsonded to Rituxan in the past, most recently she was on Plaquenil (with a history of Lupus) and did not respond to this. Bone marrow biopsy September 13, 2019 showed unremarkable maturing trilineage hematopoiesis. Completed 4 weekly doses of Rituxan 11/2019 and platelet counts improved but still low. 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 - Continues to respond to Tavalisse started 05/2021. 2. Pulmonary nodules - ICD9: 793.19, ICD10: R91.8 : 12/31/2020 CT Chest stable. No new findings. 3. Lupus (HCC) - ICD9: 710.0, ICD10: M32.9: She is asymptomatic from Lupus of the skin. 4. 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 5. HTN - continue Losartan plus HCTZ and continue managing HTN. Improved control even on Tavalisse. 6. Read lesion - may need biopsy in future. PLAN: Continue Tavalisse 100 mg twice daily. Follow up in 6 weeks with labs. Treatment to Date: . 05/14/2021 - Current: Tavalisse 4. 10/31/2019 - 11/21/2019: Weekly Rituxan x 4 3. 04/11/2019 Plaquenil which she stopped 2. January 2019 Prednisone 1. 2017 Rituxan X 4 HPI: Updated Visit, December 15, 2022: Doing well but mole is enlarging and bothering her on her left scalp. Platelets 113. Updated Visit, October 27, 2022: Doing well. Labs are great - platelets 119 Updated Visit, September 15, 2022: Andrei continues to do very well. Very busy with family life and issues. No new complaints. Updated Visit, August 04, 2022: Andrei Leo returns for follow-up. She remains on Tavalisse and is tolerating it well. She deniesany bleeding or abnormal bruising. Since her last visit she had a colonoscopy and had polyps removed. She states that she was notified of the biopsy results which were negative. She is scheduled for a hearing test on 08/10/2022 and will then see ENT for follow-up on 08/30/2022. 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 Overall, she is doing well today with no new complaints. Updated Visit, June 23, 2022: Andrei is doing well on Tavalisse 100 mg BID. Plts 118. Right anterior read has a erythematous wide streak that throbs at night and is tender to touch. But it has been there for 6 months - 12/09/2021. I don't think this is an infection. She has edema inboth legs. Will recommend trying Ice for 15 minutes at a time to see if she has some reduction in inflammation. It is possible that this is a manifestation of lupus. Will monitor. Consider a biopsy of skin if not resolved. Updated Visit, May 12, 2022: Andrei Leo returns for follow-up. She remains on Tavalisse 100 mg twice daily and is tolerating it well. There has been no significant medical changes since her last visit. She states that she is feeling okay. She states that she feels a sinus infection coming on. She noticed her right high becoming puffy which is a sign. She denies fevers and chills. No bleeding or abnormal bruising. She has a follow-up scheduled with nephrology in either June or July. She offers no new complaints today. No new issues, problems or concerns. Updated Visit, March 31, 2022: Andrei is 71 yo and returns in follow up for ITP currently controlled with fostamatinib. Seems to bruise more easily with blood draws. Labs are stable. Plts 119k, hgb 11.6 Tolerating Tavalisse without difficulty however, LFT will need to be monitored as they are slightlyincreased. Got back from [place] and saw her sisters and had a nice trip with her of 54 yrs. Updated Visit, February 11, 2022: Andrei Leo returns for scheduled follow-up. She remains on Tavalisse 100 mg twice daily and is tolerating it well. She denies any signs of bleeding or abnormal bruising. Also no signs of blood clots. She saw Dr. Gilson Troncoso today. She states that she was told she has protein in her urine. She will have her next follow-up with nephrology in 6 months. She is stil having issues with her sinuses and plans to follow-up with the health clinic. She has ongoing issues with dry mouth. Overall, she is doing fairly well. Updated Visit, December 17, 2021: Andrei Leo returns for scheduled follow-up. She remains on Tavalisse and is tolerating it well. She denies any signs of bleeding or abnormal bruising. No signs of blood clots. She had a consultation with nephrology, Dr. Gilson Sarah. Dr. Sarah increased her losartan to 50 mg daily. He also ordered a renal ultrasound. She has a follow up scheduled in February. She complains today of leg cramps. Overall, she is doing well. 11/20/2021 Ultrasound retroperitoneal complete Impression: 1. No evidence of echogenic calculi or hydronephrosis. 2. There are bilateral renal cysts. Measurements as described above. (Copy scanned) Updated Visit, October 28, 2021: No AE's Platelets responding nicely HTN improved on Losartan but is still due to see nephrology. She is tired and stressed awaiting her niece's news. (Niece is in hospice due to pancreatic cancer). She's doing well and wants to continue current regimen of therapy. Updated Visit, September 16, 2021: Andrei Leo returns for follow-up. She remains on Tavalisse 100 mg twice daily and is tolerating it well. There has been no significant medical changes since her last visit. She denies bleeding andabnormal bruising. She continues to have a cough but states the cough is under control. The cough mainly occurs at night but not every night. She offers no new complaints today. No new issues, problems or concerns. Updated Visit, August 05, 2021: Mrs. Leo returns today and platelets continue to respond. We changed her anti-HTNives and her cough resolved, but today she notes she has a dry cough that returned this past Monday. Doubt this is due to medications. Will continue monitoring her. Updated Visit, July 16, 2021: Andrei Leo returns for follow-up. She remains on Tavalisse 100 mg twice daily and is tolerating it well. She questions if the medication can cause her to lose her hair. She had been taking Tessalon Perles which helped with the cough. After stopping for 1 week her cough came back. She recently resumed the Tessalon Perles. She is complaining of chronic left leg pain and plans to make an appointment to see an orthopedic surgeon. She canceled her nephrology appointment because she did not understand why she was going to see a mounting inspector for her blood pressure. Patient also has other mild medical issues and plans to get reestablished with a PCP. Overall, she is doing fairly well. Updated Visit, June 25, 2021: Andrei is 70 yo and returns in follow up for ITP currently on Tavalisse and tolerating it and responding to it very well. Platelets have remained stable and above 50k since starting on it in mid May 2021. BP is stable. Updated Visit, June 11, 2021: Andrei Leo returns for follow-up. She remains on tab Tavalisse, and is tolerating it well. Aftershe takes the Tavalisse, she gets a mota headache . It goes away very quickly. She denies any signs of bleeding or abnormal bruising. She still has cough despite stopping the lisinopril. She denies fevers, chills, night sweats and signs/symptoms of infection. Her granddaughter developed Covid after Thanksgiving. The patient tested and she is negative. She is currently watching her great grandchildren. She denies any diarrhea. Updated Visit, May 27, 2021: Returns to see response to Tavalisse which appears to be working nicely. Abdominal cramps and into ribs. Possibly dehydrated BP is better but Cough from Lisinopril persists and is keeping her up. Updated Visit, May 13, 2021: Still has high blood pressure and has some concern that lisinopril is causing a cough but her coughis not consistent with lisinopril - she has a tickle in her throat and has post nasal drip that induces it. She will need to stay on her HCTZ which is only intermittent right now. Will increase her lisinopril. Has chronic edema in left left that has had a skin graft. plts are 23 k today. Sinusitis is better. Updated Visit, April 29, 2021: Andrei Doesn't feel well today. 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 Sinus are full and she doesn't feel great. Additionally her plateltes have dropped below 50k again and since she has failed prior therapy, will try her on fostamatininb. Isn't tolerating HCTZ. Will try Lisinopril. Updated Visit, February 24, 2021: Labs are stable but her fatigue is prominent. She is caring for her and grand kids. TSH wasnormal. Updated Visit, January 27, 2021: Andrei Leo returns for scheduled follow-up. There has been no significant medical changes since her last visit. She denies bleeding and abnormal bruising. She complains of low energy. She has occasional exertional shortness of breath. She has a cough at night and relates it to sinus drainage. Overall, doing fairly well. Updated Visit, December 18, 2020: Tired during the day but not sleepy. HTN is notable Fatigue likely associated with weight gain Platelets are down today, will see her in 4 Weeks, recheck BP and platelets - consider tavalisse atthat time. Intermittent nose bleeds ? HTN vs. ITP - platelet count is not particularly low to cause that. Updated Visit, September 17, 2020: Andrei is 69 yo and returns to review labs. She never got seen for her elevated BP. I again cautionedher and urged her to get evaluated. She smokes a little with coffee, No alcohol Light headedness is improved but blood pressure is elevated and needs her PCP to make recommendations. She is beyond 10 years from her last colonoscopy and will need to schedule screening again. Platelets are stable and shouldn't interfere with any procedures that she may need. Updated Visit, June 25, 2020: Andrei is a very nice 69-year-old woman returning with a history of chronic ITP. She has stable counts but still having intermittent lightheadedness although less frequently. She states her cough is improved but often has a dry mouth. Corrected the prior notes- she isn't using CPAP at all, but only has mild apnea on recent re-check.I still believe that using CPAP may be of benefit to her. I recommended that she see her primary care physician for lightheadedness and dizziness at her lastvisit but she never made it. Updated Visit, April 02, 2020: Andrei is 69-year-old woman with history of ITP treated with Rituxan through November 2019. On return today, her platelets have been stable and improved. Her CPAP improved her overall fatigue and she is more compliant with usage. However, she reports having had 2 dizzy spells fairly recently and says she will follow-up with her primary care physician to work this up if it persists. She is requested Tessalon Perles again for her chronic intermittent cough. She is otherwise doing very well. Updated Visit, January 02, 2020: Andrei is 69 yo and is doing well. Platelets are stable. She is asymptomatic. If she stops responding, we will switch to Tavalisse. Updated Visit, December 05, 2019: Andrei is 69 years old and returns having completed Rituxan for 4 weekly doses. Her platelet counts are stable. She has no sequelae of thrombocytopenia. Reviewing her CBC shows white blood cell count 3.26, platelet count 83,000, H/H is 11.2/36.7. She reports daytime fatigue and a history of snoring having had a marginal sleep study in the past,she is much heavier now on I suspect that this may be contributing to her findings of both leukopenia and thrombocytopenia. I've encouraged her to obtain a sleep study. Her review of systems is otherwise negative by full review of organ systems. Updated Visit, October 31, 2019: Blow nose with slight bleeding with sneeze otherwise is asymptomatic. However, I am worried that she will have a more traumatic bleed. She is willing to proceed. Updated Visit, October 21, 2019: She is not on anything currently for her ITP. She has misty having her blood checked every three weeks and last week her platelet count was 24,000. She did notice some mild bruising. No bleeding. She does have fatigue. No new medications or infections. She does occasionally have a cough but this is not new for her. . Updated Visit, September 25, 2019: Returns -results are still pending from bone marrow studies but I spoke with the pathologist reading the slides and he indicated no significant acute pathology. Platelets are stable but slowly dropping, no petechiae reported or noted on visualization. She is aware of risks for bleeding especially if platelets drop precipitously. Exam limited to gross visualization where appropriate due to COVID-19. Updated Visit, September 13, 2019: Returns to review CT abdomen wich is essentially unremarkable for etiology of pain. CXR show lower lobe infiltrates consistent with her know upper respiratory tract infection and cough. She will be undergoing bone marrow aspirate in order to see if her marrow is intact and if she is making adequate platelets. Radiographic Data: Reviewed on January 27 2021. 3. 12/31/2020 CT Chest IMPRESSION: 1. Multiple subcentimeter nodular opacities measuring up to 7 mm (30-40) stable since 12/19/2019. If clinically indicated, consider one-year follow-up. 2. No interval changesince 12/19/2019. 2. 12/31/2020 CT chest IMPRESSION: 1. Multiple subcentimeter nodular opacities measuring up to 7 mm (30-40) stable since 12/19/2019. If clinically indicated, consider one-year follow-up. 2. No interval change since 12/19/2019. 1. 09/04/2019: CT abd/Pelvis w/: No evidence of bowel obstruction or pericolic inflammatory change. The appendix is not visualized but no evidence of inflammatory change is noted in the right lower quadrant of the abdomen. Borderline aneurysmal enlargement of the infrarenal abdominal aorta measuringup to 3.0 cm diameter. Subcentimeter nodular opacities in the right lung base measuring up to 4-5 mm. Multiple bilateral renal cysts. Subcentimeter right adrenal myelolipoma. Pathologic Profile/ Molecular Data: Reviewed on September 25, 2019 1. 09/13/2019 Bone marrow sternal aspirate: Bone marrow aspirate, clot section and peripheral blood (A-B): - Non-diagnostic lymphoid aggregates, see comment. - Unremarkable maturing trilineage hematopoiesis. REVIEW OF SYSTEMS Per HPI and otherwise negative by full review of organ systems. ECOG PERFORMANCE STATUS: 0 PHYSICAL EXAMINATION: Vitals: BP 152/8 Pulse 64 Temp (Src) 97.5 (Temporal) Resp 16 Ht 5' 2.52 (1.59m) Wt 192 lb 9.6 oz (87.4kg) SpO2 96% BMI 34.64 kg/(m^2). Body surface area is 1.96 meters squared. Exam limited to gross visualization where appropriate. Gen.: This is an age-appropriate patient in no acute distress. Head: Appears atraumatic with no visible lesions. Eyes: Pupils equally round and reactive to light, extraocular muscles are intact. Neck: Supple. Respiratory: Appears to be respiring comfortably. Neurologic: Nonfocal to gross visualization. Alert and oriented 3. Psychiatric: No evidence of inappropriate anxiety or depression. Skin: Visible areas of skin without rash, lesions, wounds or petechiae. ALLERGIES: ALLERGIES Allergen Reactions Tetnus [Tetanus Vac* Unknown Vancomycin Unknown Burning sensation MEDICATIONS: pilocarpine (SALAGEN) 5 mg tablet TAKE 1 TABLET BY MOUTH THREE TIMES A DAY losartan (COZAAR) 25 mg tablet Take 2 tablets by mouth daily at bedtime. spironolactone (ALDACTONE) 25 mg tablet Take 25 mg by mouth once daily. benzonatate (TESSALON PERLE) 100 mg capsule TAKE 1 CAPSULE BY MOUTH EVERY 6 HOURS NEEDED FOR COUGH. fostamatinib (TAVALISSE) 100 mg tablet Take 1 tablet by mouth twice daily. hydroCHLOROthiazide (HYDRODIURIL, ESIDRIX) 25 mg tablet TAKE 1 TABLET BY MOUTH EVERY DAY cholecalciferol, vitamin D3, (VITAMIN D3 ORAL) Take by mouth. LABORATORY VALUES: WBC (k/uL) Date Value 12/15/2022 4.35 RBC (m/uL) Date Value 12/15/2022 3.73 (L) Hemoglobin (g/dL) Date Value 12/15/2022 11.2 (L) Hematocrit (%) Date Value 12/15/2022 35.2 (L) MCV (fL) Date Value 12/15/2022 94.4 MCH (pg) Date Value 12/15/2022 30.0 MCHC (g/dL) Date Value 12/15/2022 31.8 RDW-CV (%) Date Value 12/15/2022 14.6 Platelet Count (k/uL) Date Value 12/15/2022 113 (L) MPV (fL) Date Value 12/15/2022 9.7 Glucose (mg/dL) Date Value 12/15/2022 104 (H) BUN (mg/dL) Date Value 12/15/2022 22 (H) Creatinine (mg/dL) Date Value 12/15/2022 0.86 Sodium (mmol/L) Date Value 12/15/2022 136 Potassium (mmol/L) Date Value 12/15/2022 3.9 Chloride (mmol/L) Date Value 12/15/2022 103 CO2 (mmol/L) Date Value 12/15/2022 25 Protein, Total (g/dL) Date Value 12/15/2022 7.5 Albumin (g/dL) Date Value 12/15/2022 3.8 (L) Calcium, Total (mg/dL) Date Value 12/15/2022 9.6 Alkaline Phosphatase (U/L) Date Value 12/15/2022 76 Bilirubin, Total (mg/dL) Date Value 12/15/2022 0.7 AST (U/L) Date Value 12/15/2022 37 (H) ALT (U/L) Date Value 12/15/2022 24 Cholesterol, Total (mg/dL) Date Value 03/30/2017 171 Triglyceride (mg/dL) Date Value 03/30/2017 118 DIAGNOSIS: (D69.3) Chronic ITP (idiopathic thrombocytopenia) (HCC) (primary encounter diagnosis) PAST MEDICAL HISTORY Diagnosis Date Lupus (HCC) Thrombocytopenia (HCC) PAST SURGICAL HISTORY Procedure Laterality Date COLONSCOPY SCREENING HIGH RISK 07/25/2022 HYSTERECTOMY HX Social History Tobacco Use Smoking status: Light Smoker Types: Cigarettes Passive exposure: Past Smokeless tobacco: Never Vaping Use Vaping Use: Never used Substance Use Topics Alcohol use: No Drug use: No History reviewed. No pertinent family history. I spent a total of 20 minutes on the date of the service which included preparing to see the patient, [id number] patient care, completing clinical documentation, performing a medically appropriate examination, counseling and educating the patient/family/caregiver, ordering medications, tests, or p rocedures, and independently interpreting results (not separately reported). Rinku Ramsey MD, CPE [facility] Provided at: [place], [place] CC: Dr. Chadd Deluna documented in this encounterCleveland [id number] NoteHNO ID: [id number] Author: Rinku Ramsey MD Service: ? Author Type: Physician Type: Progress Notes Filed: 10/27/2022 3:38 PM Note Text: NAME: Andrei Leo [facility] NO.: [id number] DATE OF SERVICE: October 27, 2022 ([facility]) Some elements in this clinic note that are critical to medical decision making have been carefully reviewed and included from a prior clinic note dated: September 15, 2022 (Roxy) Additional Clinicians involved in Andrei Leo's care: Dr. Shay, Dr. Deluna CC: Chronic ITP ASSESSMENT/PLAN: 1. Thrombocytopenia (HCC) - ICD9: 287.5, ICD10: D69.6 (primary diagnosis) She has chronic ITP. She has repsonded to Rituxan in the past, most recently she was on Plaquenil (with a history of Lupus) and did not respond to this. Bone marrow biopsy September 13, 2019 showed unremarkable maturing trilineage hematopoiesis. Completed 4 weekly doses of Rituxan 11/2019 and platelet counts improved but still low. 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 - Continues to respond to Tavalisse started 05/2021. 2. Pulmonary nodules - ICD9: 793.19, ICD10: R91.8 : 12/31/2020 CT Chest stable. No new findings. 3. Lupus (HCC) - ICD9: 710.0, ICD10: M32.9: She is asymptomatic from Lupus of the skin. 4. 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 5. HTN - continue Losartan plus HCTZ and continue managing HTN. Improved control even on Tavalisse. 6. Read lesion - may need biopsy in future. PLAN: Continue Tavalisse 100 mg twice daily. (Actually takes 2 pills at the same time) Follow up in 6 weeks with labs. Treatment to Date: 05/14/2021 - Current: Tavalisse 4. 10/31/2019 - 11/21/2019: Weekly Rituxan x 4 3. 04/11/2019 Plaquenil which she stopped 2. January 2019 Prednisone 1. 2018 Rituxan X 4 HPI: Updated Visit, October 27, 2022: Doing well. Labs are great - platelets 119 Updated Visit, September 15, 2022: Andrei continues to do very well. Very busy with family life and issues. No new complaints. Updated Visit, August 04, 2022: Andrei Leo returns for follow-up. She remains on Tavalisse and is tolerating it well. She denies any bleeding or abnormal bruising. Since her last visit she had a colonoscopy and had polyps removed. She states that she was notified of the biopsy results which were negative. She is scheduled for a hearing test on 08/10/2022 and will then see ENT for follow-up on 08/30/2022. 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 Overall, she is doing well today with no new complaints. Updated Visit, June 23, 2022: Andrei is doing well on Tavalisse 100 mg BID. Plts 118. Right anterior read has a erythematous wide streak that throbs at night and is tender to touch. But it has been there for 6 months - 12/09/2021. I don't think this is an infection. She has edema in both legs. Will recommend trying Ice for 15 minutes at a time to see if she has some reduction in inflammation. It is possible that this is a manifestation of lupus. Will monitor. Consider a biopsy of skin if not resolved. Updated Visit, May 12, 2022: Andrei Leo returns for follow-up. She remains on Tavalisse 100 mg twice daily and is tolerating it well. There has been no significant medical changes since her last visit. She states that she is feeling okay. She states that she feels a sinus infection coming on. She noticed her right high becoming puffy which is a sign. She denies fevers and chills. No bleeding or abnormal bruising. She has a follow-up scheduled with nephrology in either June or July. She offers no new complaints today. No new issues, problems or concerns. Updated Visit, March 31, 2022: Andrei is 71 yo and returns in follow up for ITP currently controlled with fostamatinib. Seems to bruise more easily with blood draws. Labs are stable. Plts 119k, hgb 11.6 Tolerating Tavalisse without difficulty however, LFT will need to be monitored as they are slightly increased. Got back from [place] and saw her sisters and had a nice trip with her of 54 yrs. Updated Visit, February 11, 2022: Andrei Leo returns for scheduled follow-up. She remains on Tavalisse 100 mg twice daily and is tolerating it well. She denies any signs of bleeding or abnormal bruising. Also no signs of blood clots. She saw Dr. Gilson Troncoso today. She states that she was told she has protein in her urine. She will have her next follow-up with nephrology in 6 months. She is stil having issues with her sinuses and plans to follow-up with the health clinic. She has ongoing issues with dry mouth. Overall, she is doing fairly well. Updated Visit, December 17, 2021: Andrei Leo returns for scheduled follow-up. She remains on Tavalisse and is tolerating it well. She denies any signs of bleeding or abnormal bruising. (more content not included)...[facility]04-20-2023 Instructions* Patient Instructions* Rinku Ramsey MD - 10/27/2022 3:37 PM EDT Continue Tavalisse 100 mg twice daily. (Actually takes 2 pills at the same time) Follow up in 6 weeks with labs. [facility] History of Present illness Narrative* Rinku Ramsey MD - 10/27/2022 3:34 PM EDT Images from the original note were not included. NAME: Andrei Leo [facility] NO.: [id number] DATE OF SERVICE: October 27, 2022 (Roxy) Some elements in this clinic note that are critical to medical decision making have been carefully reviewed and included from a prior clinic note dated: September 15, 2022 (Roxy) Additional Clinicians involved in Andrei Leo's care: Dr. Shay, Dr. Deluna CC: Chronic ITP ASSESSMENT/PLAN: 1. Thrombocytopenia (HCC) - ICD9: 287.5, ICD10: D69.6 (primary diagnosis) She has chronic ITP. She has repsonded to Rituxan in the past, most recently she was on Plaquenil (with a history of Lupus) and did not respond to this. Bone marrow biopsy September 13, 2019 showed unremarkable maturing trilineage hematopoiesis. Completed 4 weekly doses of Rituxan 11/2019 and platelet counts improved but still low. 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 - Continues to respond to Tavalisse started 05/2021. 2. Pulmonary nodules - ICD9: 793.19, ICD10: R91.8 : 12/31/2020 CT Chest stable. No new findings. 3. Lupus (HCC) - ICD9: 710.0, ICD10: M32.9: She is asymptomatic from Lupus of the skin. 4. 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 5. HTN - continue Losartan plus HCTZ and continue managing HTN. Improved control even on Tavalisse. 6. Read lesion - may need biopsy in future. PLAN: Continue Tavalisse 100 mg twice daily. (Actually takes 2 pills at the same time) Follow up in 6 weeks with labs. Treatment to Date: . 05/14/2021 - Current: Tavalisse 4. 10/31/2019 - 11/21/2019: Weekly Rituxan x 4 3. 04/11/2019 Plaquenil which she stopped 2. January 2019 Prednisone 1. 2017 Rituxan X 4 HPI: Updated Visit, October 27, 2022: Doing well. Labs are great - platelets 119 Updated Visit, September 15, 2022: Andrei continues to do very well. Very busy with family life and issues. No new complaints. Updated Visit, August 04, 2022: Andrei Leo returns for follow-up. She remains on Tavalisse and is tolerating it well. She deniesany bleeding or abnormal bruising. Since her last visit she had a colonoscopy and had polyps removed. She states that she was notified of the biopsy results which were negative. She is scheduled for a hearing test on 08/10/2022 and will then see ENT for follow-up on 08/30/2022. 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 Overall, she is doing well today with no new complaints. Updated Visit, June 23, 2022: Andrei is doing well on Tavalisse 100 mg BID. Plts 118. Right anterior read has a erythematous wide streak that throbs at night and is tender to touch. But it has been there for 6 months - 12/09/2021. I don't think this is an infection. She has edema inboth legs. Will recommend trying Ice for 15 minutes at a time to see if she has some reduction in inflammation. It is possible that this is a manifestation of lupus. Will monitor. Consider a biopsy of skin if not resolved. Updated Visit, May 12, 2022: Andrei Leo returns for follow-up. She remains on Tavalisse 100 mg twice daily and is tolerating it well. There has been no significant medical changes since her last visit. She states that she is feeling okay. She states that she feels a sinus infection coming on. She noticed her right high becoming puffy which is a sign. She denies fevers and chills. No bleeding or abnormal bruising. She has a follow-up scheduled with nephrology in either June or July. She offers no new complaints today. No new issues, problems or concerns. Updated Visit, March 31, 2022: Andrei is 71 yo and returns in follow up for ITP currently controlled with fostamatinib. Seems to bruise more easily with blood draws. Labs are stable. Plts 119k, hgb 11.6 Tolerating Tavalisse without difficulty however, LFT will need to be monitored as they are slightlyincreased. Got back from [place] and saw her sisters and had a nice trip with her of 54 yrs. Updated Visit, February 11, 2022: Andrei Leo returns for scheduled follow-up. She remains on Tavalisse 100 mg twice daily and is tolerating it well. She denies any signs of bleeding or abnormal bruising. Also no signs of blood clots. She saw Dr. Gilson Troncoso today. She states that she was told she has protein in her urine. She will have her next follow-up with nephrology in 6 months. She is stil having issues with her sinuses and plans to follow-up with the health clinic. She has ongoing issues with dry mouth. Overall, she is doing fairly well. Updated Visit, December 17, 2021: Andrei Leo returns for scheduled follow-up. She remains on Tavalisse and is tolerating it well. She denies any signs of bleeding or abnormal bruising. No signs of blood clots. She had a consultation with nephrology, Dr. Gilson Sarah. Dr. Sarah increased her losartan to 50 mg daily. He also ordered a renal ultrasound. She has a follow up scheduled in February. She complains today of leg cramps. Overall, she is doing well. 11/20/2021 Ultrasound retroperitoneal complete Impression: 1. No evidence of echogenic calculi or hydronephrosis. 2. There are bilateral renal cysts. Measurements as described above. (Copy scanned) Updated Visit, October 28, 2021: No AE's Platelets responding nicely HTN improved on Losartan but is still due to see nephrology. She is tired and stressed awaiting her niece's news. (Niece is in hospice due to pancreatic cancer). She's doing well and wants to continue current regimen of therapy. Updated Visit, September 16, 2021: Andrei Leo returns for follow-up. She remains on Tavalisse 100 mg twice daily and is tolerating it well. There has been no significant medical changes since her last visit. She denies bleeding andabnormal bruising. She continues to have a cough but states the cough is under control. The cough mainly occurs at night but not every night. She offers no new complaints today. No new issues, problems or concerns. Updated Visit, August 05, 2021: Mrs. Leo returns today and platelets continue to respond. We changed her anti-HTNives and her cough resolved, but today she notes she has a dry cough that returned this past Monday. Doubt this is due to medications. Will continue monitoring her. Updated Visit, July 16, 2021: Andrei Leo returns for follow-up. She remains on Tavalisse 100 mg twice daily and is tolerating it well. She questions if the medication can cause her to lose her hair. She had been taking Tessalon Perles which helped with the cough. After stopping for 1 week her cough came back. She recently resumed the Tessalon Perles. She is complaining of chronic left leg pain and plans to make an appointment to see an orthopedic surgeon. She canceled her nephrology appointment because she did not understand why she was going to see a mounting inspector for her blood pressure. Patient also has other mild medical issues and plans to get reestablished with a PCP. Overall, she is doing fairly well. Updated Visit, June 25, 2021: Andrei is 70 yo and returns in follow up for ITP currently on Tavalisse and tolerating it and responding to it very well. Platelets have remained stable and above 50k since starting on it in mid May 2021. BP is stable. Updated Visit, June 11, 2021: Andrei Leo returns for follow-up. She remains on tab Tavalisse, and is tolerating it well. Aftershe takes the Tavalisse, she gets a mota headache . It goes away very quickly. She denies any signs of bleeding or abnormal bruising. She still has cough despite stopping the lisinopril. She denies fevers, chills, night sweats and signs/symptoms of infection. Her granddaughter developed Covid after Thanksgiving. The patient tested and she is negative. She is currently watching her great grandchildren. She denies any diarrhea. Updated Visit, May 27, 2021: Returns to see response to Tavalisse which appears to be working nicely. Abdominal cramps and into ribs. Possibly dehydrated BP is better but Cough from Lisinopril persists and is keeping her up. Updated Visit, May 13, 2021: Still has high blood pressure and has some concern that lisinopril is causing a cough but her coughis not consistent with lisinopril - she has a tickle in her throat and has post nasal drip that induces it. She will need to stay on her HCTZ which is only intermittent right now. Will increase her lisinopril. Has chronic edema in left left that has had a skin graft. plts are 23 k today. Sinusitis is better. Updated Visit, April 29, 2021: Andrei Doesn't feel well today. 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 Sinus are full and she doesn't feel great. Additionally her plateltes have dropped below 50k again and since she has failed prior therapy, will try her on fostamatininb. Isn't tolerating HCTZ. Will try Lisinopril. Updated Visit, February 24, 2021: Labs are stable but her fatigue is prominent. She is caring for her and grand kids. TSH wasnormal. Updated Visit, January 27, 2021: Andrei Leo returns for scheduled follow-up. There has been no significant medical changes since her last visit. She denies bleeding and abnormal bruising. She complains of low energy. She has occasional exertional shortness of breath. She has a cough at night and relates it to sinus drainage. Overall, doing fairly well. Updated Visit, December 18, 2020: Tired during the day but not sleepy. HTN is notable Fatigue likely associated with weight gain Platelets are down today, will see her in 4 Weeks, recheck BP and platelets - consider tavalisse atthat time. Intermittent nose bleeds ? HTN vs. ITP - platelet count is not particularly low to cause that. Updated Visit, September 17, 2020: Andrei is 69 yo and returns to review labs. She never got seen for her elevated BP. I again cautionedher and urged her to get evaluated. She smokes a little with coffee, No alcohol Light headedness is improved but blood pressure is elevated and needs her PCP to make recommendations. She is beyond 10 years from her last colonoscopy and will need to schedule screening again. Platelets are stable and shouldn't interfere with any procedures that she may need. Updated Visit, June 25, 2020: Andrei is a very nice 69-year-old woman returning with a history of chronic ITP. She has stable counts but still having intermittent lightheadedness although less frequently. She states her cough is improved but often has a dry mouth. Corrected the prior notes- she isn't using CPAP at all, but only has mild apnea on recent re-check.I still believe that using CPAP may be of benefit to her. I recommended that she see her primary care physician for lightheadedness and dizziness at her lastvisit but she never made it. Updated Visit, April 02, 2020: Andrei is 69-year-old woman with history of ITP treated with Rituxan through November 2019. On return today, her platelets have been stable and improved. Her CPAP improved her overall fatigue and she is more compliant with usage. However, she reports having had 2 dizzy spells fairly recently and says she will follow-up with her primary care physician to work this up if it persists. She is requested Tessalon Perles again for her chronic intermittent cough. She is otherwise doing very well. Updated Visit, January 02, 2020: Andrei is 69 yo and is doing well. Platelets are stable. She is asymptomatic. If she stops responding, we will switch to Tavalisse. Updated Visit, December 05, 2019: Andrei is 69 years old and returns having completed Rituxan for 4 weekly doses. Her platelet counts are stable. She has no sequelae of thrombocytopenia. Reviewing her CBC shows white blood cell count 3.26, platelet count 83,000, H/H is 11.2/36.7. She reports daytime fatigue and a history of snoring having had a marginal sleep study in the past,she is much heavier now on I suspect that this may be contributing to her findings of both leukopenia and thrombocytopenia. I've encouraged her to obtain a sleep study. Her review of systems is otherwise negative by full review of organ systems. Updated Visit, October 31, 2019: Blow nose with slight bleeding with sneeze otherwise is asymptomatic. However, I am worried that she will have a more traumatic bleed. She is willing to proceed. Updated Visit, October 21, 2019: She is not on anything currently for her ITP. She has misty having her blood checked every three weeks and last week her platelet count was 24,000. She did notice some mild bruising. No bleeding. She does have fatigue. No new medications or infections. She does occasionally have a cough but this is not new for her. . Updated Visit, September 25, 2019: Returns -results are still pending from bone marrow studies but I spoke with the pathologist reading the slides and he indicated no significant acute pathology. Platelets are stable but slowly dropping, no petechiae reported or noted on visualization. She is aware of risks for bleeding especially if platelets drop precipitously. Exam limited to gross visualization where appropriate due to COVID-19. Updated Visit, September 13, 2019: Returns to review CT abdomen wich is essentially unremarkable for etiology of pain. CXR show lower lobe infiltrates consistent with her know upper respiratory tract infection and cough. She will be undergoing bone marrow aspirate in order to see if her marrow is intact and if she is making adequate platelets. Radiographic Data: Reviewed on January 27 2021. 3. 12/31/2020 CT Chest IMPRESSION: 1. Multiple subcentimeter nodular opacities measuring up to 7 mm (30-40) stable since 12/19/2019. If clinically indicated, consider one-year follow-up. 2. No interval changesince 12/19/2019. 2. 12/31/2020 CT chest IMPRESSION: 1. Multiple subcentimeter nodular opacities measuring up to 7 mm (30-40) stable since 12/19/2019. If clinically indicated, consider one-year follow-up. 2. No interval change since 12/19/2019. 1. 09/04/2019: CT abd/Pelvis w/: No evidence of bowel obstruction or pericolic inflammatory change. The appendix is not visualized but no evidence of inflammatory change is noted in the right lower quadrant of the abdomen. Borderline aneurysmal enlargement of the infrarenal abdominal aorta measuringup to 3.0 cm diameter. Subcentimeter nodular opacities in the right lung base measuring up to 4-5 mm. Multiple bilateral renal cysts. Subcentimeter right adrenal myelolipoma. Pathologic Profile/ Molecular Data: Reviewed on September 25, 2019 1. 09/13/2019 Bone marrow sternal aspirate: Bone marrow aspirate, clot section and peripheral blood (A-B): - Non-diagnostic lymphoid aggregates, see comment. - Unremarkable maturing trilineage hematopoiesis. REVIEW OF SYSTEMS Per HPI and otherwise negative by full review of organ systems. ECOG PERFORMANCE STATUS: 0 PHYSICAL EXAMINATION: Vitals: BP 164/84 Pulse 71 Temp (Src) 97.4 (Temporal) Resp 18 Ht 5' 2.52 (1.59m) Wt 192 lb 9.6 oz (87.4kg) SpO2 98% BMI 34.64 kg/(m^2). Body surface area is 1.96 meters squared. Exam limited to gross visualization where appropriate due to COVID-19. Gen.: This is an age-appropriate patient in no acute distress. Head: Appears atraumatic with no visible lesions. Eyes: Pupils equally round and reactive to light, extraocular muscles are intact. Neck: Supple. Mouth: Masked. Respiratory: Appears to be respiring comfortably. Neurologic: Nonfocal to gross visualization. Alert and oriented 3. Psychiatric: No evidence of inappropriate anxiety or depression. Skin: Visible areas of skin without rash, lesions, wounds or petechiae. ALLERGIES: ALLERGIES Allergen Reactions Tetnus [Tetanus Vac* Unknown Vancomycin Unknown Burning sensation MEDICATIONS: pilocarpine (SALAGEN) 5 mg tablet TAKE 1 TABLET BY MOUTH THREE TIMES A DAY losartan (COZAAR) 25 mg tablet Take 2 tablets by mouth daily at bedtime. spironolactone (ALDACTONE) 25 mg tablet Take 25 mg by mouth once daily. benzonatate (TESSALON PERLE) 100 mg capsule TAKE 1 CAPSULE BY MOUTH EVERY 6 HOURS NEEDED FOR COUGH. fostamatinib (TAVALISSE) 100 mg tablet Take 1 tablet by mouth twice daily. hydroCHLOROthiazide (HYDRODIURIL, ESIDRIX) 25 mg tablet TAKE 1 TABLET BY MOUTH EVERY DAY cholecalciferol, vitamin D3, (VITAMIN D3 ORAL) Take by mouth. LABORATORY VALUES: WBC (k/uL) Date Value 10/27/2022 5.13 RBC (m/uL) Date Value 10/27/2022 3.58 (L) Hemoglobin (g/dL) Date Value 10/27/2022 10.5 (L) Hematocrit (%) Date Value 10/27/2022 34.0 (L) MCV (fL) Date Value 10/27/2022 95.0 MCH (pg) Date Value 10/27/2022 29.3 MCHC (g/dL) Date Value 10/27/2022 30.9 RDW-CV (%) Date Value 10/27/2022 14.4 Platelet Count (k/uL) Date Value 10/27/2022 119 (L) MPV (fL) Date Value 10/27/2022 10.1 Glucose (mg/dL) Date Value 10/27/2022 109 (H) BUN (mg/dL) Date Value 10/27/2022 25 (H) Creatinine (mg/dL) Date Value 10/27/2022 0.90 Sodium (mmol/L) Date Value 10/27/2022 140 Potassium (mmol/L) Date Value 10/27/2022 3.4 (L) Chloride (mmol/L) Date Value 10/27/2022 105 CO2 (mmol/L) Date Value 10/27/2022 27 Protein, Total (g/dL) Date Value 10/27/2022 7.4 Albumin (g/dL) Date Value 10/27/2022 3.6 (L) Calcium, Total (mg/dL) Date Value 10/27/2022 9.3 Alkaline Phosphatase (U/L) Date Value 10/27/2022 74 Bilirubin, Total (mg/dL) Date Value 10/27/2022 0.4 AST (U/L) Date Value 10/27/2022 45 (H) ALT (U/L) Date Value 10/27/2022 31 Cholesterol, Total (mg/dL) Date Value 03/30/2017 171 Triglyceride (mg/dL) Date Value 03/30/2017 118 DIAGNOSIS: (D69.3) Chronic ITP (idiopathic thrombocytopenia) (HCC) (primary encounter diagnosis) PAST MEDICAL HISTORY Diagnosis Date Lupus (HCC) Thrombocytopenia (HCC) PAST SURGICAL HISTORY Procedure Laterality Date COLONSCOPY SCREENING HIGH RISK 07/25/2022 HYSTERECTOMY HX Social History Tobacco Use Smoking status: Light Smoker Types: Cigarettes Passive exposure: Past Smokeless tobacco: Never Vaping Use Vaping Use: Never used Substance Use Topics Alcohol use: No Drug use: No History reviewed. No pertinent family history. I spent a total of 20 minutes on the date of the service which included preparing to see the patient, [id number] patient care, completing clinical documentation, performing a medically appropriate examination, counseling and educating the patient/family/caregiver, ordering medications, tests, or p rocedures, and independently interpreting results (not separately reported). Rinku Ramsey MD, CPE [facility] On[facility] Provided at: [place], [place] CC: Dr. Chadd Deluna [facility]Tr[facility] Miscellaneous Notes* Telephone Encounter - Jaonne Alvarez - 09/23/2022 9:24 AM EDT Patient would like script for 90 days please. Joanne Alvarez documented in this encounterTr[facility]03-10-2023 Miscellaneous Notes* Telephone Encounter - Rinku Ramsey MD - 09/16/2022 3:30 PM EST This really should go through her PCP documented in this encounterTr[facility]03-09-2023 NoteHNO ID: [id number] Author: Rinku Ramsey MD Service: ? Author Type: Physician Type: Progress Notes Filed: 09/20/2022 3:43 PM Note Text: NAME: Andrei Leo [facility] NO.: [id number] DATE OF SERVICE: September 15, 2022 ([place]oxy) Some elements in this clinic note that are critical to medical decision making have been carefully reviewed and included from a prior clinic note dated: August 04, 2021 ([place]) Additional Clinicians involved in Andrei Leo's care: Dr. Shay, Dr. Deluna CC: Chronic ITP ASSESSMENT/PLAN: 1. Thrombocytopenia (HCC) - ICD9: 287.5, ICD10: D69.6 (primary diagnosis) She has chronic ITP. She has repsonded to Rituxan in the past, most recently she was on Plaquenil (with a history of Lupus) and did not respond to this. Bone marrow biopsy September 13, 2019 showed unremarkable maturing trilineage hematopoiesis. Completed 4 weekly doses of Rituxan 11/2019 and platelet counts improved but still low. 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 - Continues to respond to Tavalisse started 05/2021. 2. Pulmonary nodules - ICD9: 793.19, ICD10: R91.8 : 12/31/2020 CT Chest stable. No new findings. 3. Lupus (HCC) - ICD9: 710.0, ICD10: M32.9: She is asymptomatic from Lupus of the skin. 4. 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 5. HTN - continue Losartan plus HCTZ and continue managing HTN. Improved control even on Tavalisse. 6. Read lesion - may need biopsy in future. PLAN: Continue Tavalisse 100 mg twice daily. (Actually takes 2 pills at the same time) Losartan was increased by nephrology. Taking Losartan 50 mg daily. Continue HCTZ. Follow up in 6 weeks with labs. Treatment to Date: . 05/14/2021 - Current: Tavalisse 4. 10/31/2019 - 11/21/2019: Weekly Rituxan x 4 3. 04/11/2019 Plaquenil which she stopped 2. January 2019 Prednisone 1. 2017 Rituxan X 4 HPI: Updated Visit, September 15, 2022: Andrei continues to do very well. Very busy with family life and issues. No new complaints. Updated Visit, August 04, 2022: Andrei Leo returns for follow-up. She remains on Tavalisse and is tolerating it well. She denies any bleeding or abnormal bruising. Since her last visit she had a colonoscopy and had polyps removed. She states that she was notified of the biopsy results which were negative. She is scheduled for a hearing test on 08/10/2022 and will then see ENT for follow-up on 08/30/2022. 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 Overall, she is doing well today with no new complaints. Updated Visit, June 23, 2022: Andrei is doing well on Tavalisse 100 mg BID. Plts 118. Right anterior read has a erythematous wide streak that throbs at night and is tender to touch. But it has been there for 6 months - 12/09/2021. I don't think this is an infection. She has edema in both legs. Will recommend trying Ice for 15 minutes at a time to see if she has some reduction in inflammation. It is possible that this is a manifestation of lupus. Will monitor. Consider a biopsy of skin if not resolved. Updated Visit, May 12, 2022: Andrei Leo returns for follow-up. She remains on Tavalisse 100 mg twice daily and is tolerating it well. There has been no significant medical changes since her last visit. She states that she is feeling okay. She states that she feels a sinus infection coming on. She noticed her right high becoming puffy which is a sign. She denies fevers and chills. No bleeding or abnormal bruising. She has a follow-up scheduled with nephrology in either June or July. She offers no new complaints today. No new issues, problems or concerns. Updated Visit, March 31, 2022: Andrei is 71 yo and returns in follow up for ITP currently controlled with fostamatinib. Seems to bruise more easily with blood draws. Labs are stable. Plts 119k, hgb 11.6 Tolerating Tavalisse without difficulty however, LFT will need to be monitored as they are slightly increased. Got back from [place] and saw her sisters and had a nice trip with her of 54 yrs. Updated Visit, February 11, 2022: Andrei Leo returns for scheduled follow-up. She remains on Tavalisse 100 mg twice daily and is tolerating it well. She denies any signs of bleeding or abnormal bruising. Also no signs of blood clots. She saw Dr. Gilson Troncoso today. She states that she was told she has protein in her urine. She will have her next follow-up with nephrology in 6 months. She is stil having issues with her sinuses and plans to follow-up with the health clinic. She has ongoing issues with dry mouth. Overall, she is doing fairly well. Updated Visit, December 17, 2021: Andrei Leo returns for scheduled follow-up. She remains on Tavalisse and is tolerating it well. She denies any signs of bleeding or abnormal br (more content not included)...[facility]03-09-2023 Instructions* Patient Instructions* Rinku Ramsey MD - 09/15/2022 3:53 PM EST Continue Tavalisse 100 mg twice daily. (Actually takes 2 pills at the same time) Losartan was increased by nephrology. Taking Losartan 50 mg daily. Continue HCTZ. Follow up in 6 weeks with labs. documented in this encounterTr[facility]03-[facility] History of Present illness Narrative* Rinku Ramsey MD - 09/15/2022 3:34 PM EST Images from the original note were not included. NAME: Andrei Leo CLINIC NO.: [id number] DATE OF SERVICE: September 15, 2022 (Roxy) Some elements in this clinic note that are critical to medical decision making have been carefully reviewed and included from a prior clinic note dated: August 04, 2021 ([place]) Additional Clinicians involved in Andrei Leo's care: Dr. Shay, Dr. Deluna CC: Chronic ITP ASSESSMENT/PLAN: 1. Thrombocytopenia (HCC) - ICD9: 287.5, ICD10: D69.6 (primary diagnosis) She has chronic ITP. She has repsonded to Rituxan in the past, most recently she was on Plaquenil (with a history of Lupus) and did not respond to this. Bone marrow biopsy September 13, 2019 showed unremarkable maturing trilineage hematopoiesis. Completed 4 weekly doses of Rituxan 11/2019 and platelet counts improved but still low. 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 - Continues to respond to Tavalisse started 05/2021. 2. Pulmonary nodules - ICD9: 793.19, ICD10: R91.8 : 12/31/2020 CT Chest stable. No new findings. 3. Lupus (HCC) - ICD9: 710.0, ICD10: M32.9: She is asymptomatic from Lupus of the skin. 4. 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 5. HTN - continue Losartan plus HCTZ and continue managing HTN. Improved control even on Tavalisse. 6. Read lesion - may need biopsy in future. PLAN: Continue Tavalisse 100 mg twice daily. (Actually takes 2 pills at the same time) Losartan was increased by nephrology. Taking Losartan 50 mg daily. Continue HCTZ. Follow up in 6 weeks with labs. Treatment to Date: . 05/14/2021 - Current: Tavalisse 4. 10/31/2019 - 11/21/2019: Weekly Rituxan x 4 3. 04/11/2019 Plaquenil which she stopped 2. January 2019 Prednisone 1. 2017 Rituxan X 4 HPI: Updated Visit, September 15, 2022: Andrei continues to do very well. Very busy with family life and issues. No new complaints. Updated Visit, August 04, 2022: Andrei Leo returns for follow-up. She remains on Tavalisse and is tolerating it well. She deniesany bleeding or abnormal bruising. Since her last visit she had a colonoscopy and had polyps removed. She states that she was notified of the biopsy results which were negative. She is scheduled for a hearing test on 08/10/2022 and will then see ENT for follow-up on 08/30/2022. 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 Overall, she is doing well today with no new complaints. Updated Visit, June 23, 2022: Andrei is doing well on Tavalisse 100 mg BID. Plts 118. Right anterior read has a erythematous wide streak that throbs at night and is tender to touch. But it has been there for 6 months - 12/09/2021. I don't think this is an infection. She has edema inboth legs. Will recommend trying Ice for 15 minutes at a time to see if she has some reduction in inflammation. It is possible that this is a manifestation of lupus. Will monitor. Consider a biopsy of skin if not resolved. Updated Visit, May 12, 2022: Andrei Leo returns for follow-up. She remains on Tavalisse 100 mg twice daily and is tolerating it well. There has been no significant medical changes since her last visit. She states that she is feeling okay. She states that she feels a sinus infection coming on. She noticed her right high becoming puffy which is a sign. She denies fevers and chills. No bleeding or abnormal bruising. She has a follow-up scheduled with nephrology in either June or July. She offers no new complaints today. No new issues, problems or concerns. Updated Visit, March 31, 2022: Andrei is 71 yo and returns in follow up for ITP currently controlled with fostamatinib. Seems to bruise more easily with blood draws. Labs are stable. Plts 119k, hgb 11.6 Tolerating Tavalisse without difficulty however, LFT will need to be monitored as they are slightlyincreased. Got back from [place] and saw her sisters and had a nice trip with her of 54 yrs. Updated Visit, February 11, 2022: Andrei Leo returns for scheduled follow-up. She remains on Tavalisse 100 mg twice daily and is tolerating it well. She denies any signs of bleeding or abnormal bruising. Also no signs of blood clots. She saw Dr. Gilson Troncoso today. She states that she was told she has protein in her urine. She will have her next follow-up with nephrology in 6 months. She is stil having issues with her sinuses and plans to follow-up with the health clinic. She has ongoing issues with dry mouth. Overall, she is doing fairly well. Updated Visit, December 17, 2021: Andrei Leo returns for scheduled follow-up. She remains on Tavalisse and is tolerating it well. She denies any signs of bleeding or abnormal bruising. No signs of blood clots. She had a consultation with nephrology, Dr. Gilson Sarah. Dr. Sarah increased her losartan to 50 mg daily. He also ordered a renal ultrasound. She has a follow up scheduled in February. She complains today of leg cramps. Overall, she is doing well. 11/20/2021 Ultrasound retroperitoneal complete Impression: 1. No evidence of echogenic calculi or hydronephrosis. 2. There are bilateral renal cysts. Measurements as described above. (Copy scanned) Updated Visit, October 28, 2021: No AE's Platelets responding nicely HTN improved on Losartan but is still due to see nephrology. She is tired and stressed awaiting her niece's news. (Niece is in hospice due to pancreatic cancer). She's doing well and wants to continue current regimen of therapy. Updated Visit, September 16, 2021: Andrei Leo returns for follow-up. She remains on Tavalisse 100 mg twice daily and is tolerating it well. There has been no significant medical changes since her last visit. She denies bleeding andabnormal bruising. She continues to have a cough but states the cough is under control. The cough mainly occurs at night but not every night. She offers no new complaints today. No new issues, problems or concerns. Updated Visit, August 05, 2021: Mrs. Leo returns today and platelets continue to respond. We changed her anti-HTNives and her cough resolved, but today she notes she has a dry cough that returned this past Monday. Doubt this is due to medications. Will continue monitoring her. Updated Visit, July 16, 2021: Andrei Leo returns for follow-up. She remains on Tavalisse 100 mg twice daily and is tolerating it well. She questions if the medication can cause her to lose her hair. She had been taking Tessalon Perles which helped with the cough. After stopping for 1 week her cough came back. She recently resumed the Tessalon Perles. She is complaining of chronic left leg pain and plans to make an appointment to see an orthopedic surgeon. She canceled her nephrology appointment because she did not understand why she was going to see a mounting inspector for her blood pressure. Patient also has other mild medical issues and plans to get reestablished with a PCP. Overall, she is doing fairly well. Updated Visit, June 25, 2021: Andrei is 70 yo and returns in follow up for ITP currently on Tavalisse and tolerating it and responding to it very well. Platelets have remained stable and above 50k since starting on it in mid May 2021. BP is stable. Updated Visit, June 11, 2021: Andrei Leo returns for follow-up. She remains on tab Tavalisse, and is tolerating it well. Aftershe takes the Tavalisse, she gets a mota headache . It goes away very quickly. She denies any signs of bleeding or abnormal bruising. She still has cough despite stopping the lisinopril. She denies fevers, chills, night sweats and signs/symptoms of infection. Her granddaughter developed Covid after Thanksgiving. The patient tested and she is negative. She is currently watching her great grandchildren. She denies any diarrhea. Updated Visit, May 27, 2021: Returns to see response to Tavalisse which appears to be working nicely. Abdominal cramps and into ribs. Possibly dehydrated BP is better but Cough from Lisinopril persists and is keeping her up. Updated Visit, May 13, 2021: Still has high blood pressure and has some concern that lisinopril is causing a cough but her coughis not consistent with lisinopril - she has a tickle in her throat and has post nasal drip that induces it. She will need to stay on her HCTZ which is only intermittent right now. Will increase her lisinopril. Has chronic edema in left left that has had a skin graft. plts are 23 k today. Sinusitis is better. Updated Visit, April 29, 2021: Andrei Doesn't feel well today. 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 Sinus are full and she doesn't feel great. Additionally her plateltes have dropped below 50k again and since she has failed prior therapy, will try her on fostamatininb. Isn't tolerating HCTZ. Will try Lisinopril. Updated Visit, February 24, 2021: Labs are stable but her fatigue is prominent. She is caring for her and grand kids. TSH wasnormal. Updated Visit, January 27, 2021: Andrei Leo returns for scheduled follow-up. There has been no significant medical changes since her last visit. She denies bleeding and abnormal bruising. She complains of low energy. She has occasional exertional shortness of breath. She has a cough at night and relates it to sinus drainage. Overall, doing fairly well. Updated Visit, December 18, 2020: Tired during the day but not sleepy. HTN is notable Fatigue likely associated with weight gain Platelets are down today, will see her in 4 Weeks, recheck BP and platelets - consider tavalisse atthat time. Intermittent nose bleeds ? HTN vs. ITP - platelet count is not particularly low to cause that. Updated Visit, September 17, 2020: Andrei is 69 yo and returns to review labs. She never got seen for her elevated BP. I again cautionedher and urged her to get evaluated. She smokes a little with coffee, No alcohol Light headedness is improved but blood pressure is elevated and needs her PCP to make recommendations. She is beyond 10 years from her last colonoscopy and will need to schedule screening again. Platelets are stable and shouldn't interfere with any procedures that she may need. Updated Visit, June 25, 2020: Andrei is a very nice 69-year-old woman returning with a history of chronic ITP. She has stable counts but still having intermittent lightheadedness although less frequently. She states her cough is improved but often has a dry mouth. Corrected the prior notes- she isn't using CPAP at all, but only has mild apnea on recent re-check.I still believe that using CPAP may be of benefit to her. I recommended that she see her primary care physician for lightheadedness and dizziness at her lastvisit but she never made it. Updated Visit, April 02, 2020: Andrei is 69-year-old woman with history of ITP treated with Rituxan through November 2019. On return today, her platelets have been stable and improved. Her CPAP improved her overall fatigue and she is more compliant with usage. However, she reports having had 2 dizzy spells fairly recently and says she will follow-up with her primary care physician to work this up if it persists. She is requested Tessalon Perles again for her chronic intermittent cough. She is otherwise doing very well. Updated Visit, January 02, 2020: Andrei is 69 yo and is doing well. Platelets are stable. She is asymptomatic. If she stops responding, we will switch to Tavalisse. Updated Visit, December 05, 2019: Andrei is 69 years old and returns having completed Rituxan for 4 weekly doses. Her platelet counts are stable. She has no sequelae of thrombocytopenia. Reviewing her CBC shows white blood cell count 3.26, platelet count 83,000, H/H is 11.2/36.7. She reports daytime fatigue and a history of snoring having had a marginal sleep study in the past,she is much heavier now on I suspect that this may be contributing to her findings of both leukopenia and thrombocytopenia. I've encouraged her to obtain a sleep study. Her review of systems is otherwise negative by full review of organ systems. Updated Visit, October 31, 2019: Blow nose with slight bleeding with sneeze otherwise is asymptomatic. However, I am worried that she will have a more traumatic bleed. She is willing to proceed. Updated Visit, October 21, 2019: She is not on anything currently for her ITP. She has misty having her blood checked every three weeks and last week her platelet count was 24,000. She did notice some mild bruising. No bleeding. She does have fatigue. No new medications or infections. She does occasionally have a cough but this is not new for her. . Updated Visit, September 25, 2019: Returns -results are still pending from bone marrow studies but I spoke with the pathologist reading the slides and he indicated no significant acute pathology. Platelets are stable but slowly dropping, no petechiae reported or noted on visualization. She is aware of risks for bleeding especially if platelets drop precipitously. Exam limited to gross visualization where appropriate due to COVID-19. Updated Visit, September 13, 2019: Returns to review CT abdomen wich is essentially unremarkable for etiology of pain. CXR show lower lobe infiltrates consistent with her know upper respiratory tract infection and cough. She will be undergoing bone marrow aspirate in order to see if her marrow is intact and if she is making adequate platelets. Radiographic Data: Reviewed on January 27 2021. 3. 12/31/2020 CT Chest IMPRESSION: 1. Multiple subcentimeter nodular opacities measuring up to 7 mm (30-40) stable since 12/19/2019. If clinically indicated, consider one-year follow-up. 2. No interval changesince 12/19/2019. 2. 12/31/2020 CT chest IMPRESSION: 1. Multiple subcentimeter nodular opacities measuring up to 7 mm (30-40) stable since 12/19/2019. If clinically indicated, consider one-year follow-up. 2. No interval change since 12/19/2019. 1. 09/04/2019: CT abd/Pelvis w/: No evidence of bowel obstruction or pericolic inflammatory change. The appendix is not visualized but no evidence of inflammatory change is noted in the right lower quadrant of the abdomen. Borderline aneurysmal enlargement of the infrarenal abdominal aorta measuringup to 3.0 cm diameter. Subcentimeter nodular opacities in the right lung base measuring up to 4-5 mm. Multiple bilateral renal cysts. Subcentimeter right adrenal myelolipoma. Pathologic Profile/ Molecular Data: Reviewed on September 25, 2019 1. 09/13/2019 Bone marrow sternal aspirate: Bone marrow aspirate, clot section and peripheral blood (A-B): - Non-diagnostic lymphoid aggregates, see comment. - Unremarkable maturing trilineage hematopoiesis. REVIEW OF SYSTEMS Per HPI and otherwise negative by full review of organ systems. ECOG PERFORMANCE STATUS: 0 PHYSICAL EXAMINATION: Vitals: BP 158/89 Pulse 75 Temp (Src) 97.1 (Temporal) Resp 16 Ht 5' 2.52 (1.59m) Wt 190 lb 6.4 oz (86.4kg) SpO2 97% BMI 34.25 kg/(m^2). Body surface area is 1.95 meters squared. Exam limited to gross visualization where appropriate due to COVID-19. Gen.: This is an age-appropriate patient in no acute distress. Head: Appears atraumatic with no visible lesions. Eyes: Pupils equally round and reactive to light, extraocular muscles are intact. Neck: Supple. Mouth: Masked. Respiratory: Appears to be respiring comfortably. Neurologic: Nonfocal to gross visualization. Alert and oriented 3. Psychiatric: No evidence of inappropriate anxiety or depression. Skin: Visible areas of skin without rash, lesions, wounds or petechiae. ALLERGIES: ALLERGIES Allergen Reactions Tetnus [Tetanus Vac* Unknown Vancomycin Unknown Burning sensation MEDICATIONS: pilocarpine (SALAGEN) 5 mg tablet TAKE 1 TABLET BY MOUTH THREE TIMES A DAY benzonatate (TESSALON PERLE) 100 mg capsule TAKE 1 CAPSULE BY MOUTH EVERY 6 HOURS NEEDED FOR COUGH. losartan (COZAAR) 25 mg tablet TAKE 2 TABLETS BY MOUTH EVERY DAY (Patient taking differently: dailyat bedtime.) fostamatinib (TAVALISSE) 100 mg tablet Take 1 tablet by mouth twice daily. hydroCHLOROthiazide (HYDRODIURIL, ESIDRIX) 25 mg tablet TAKE 1 TABLET BY MOUTH EVERY DAY cholecalciferol, vitamin D3, (VITAMIN D3 ORAL) Take by mouth. spironolactone (ALDACTONE) 25 mg tablet Take 25 mg by mouth once daily. (Patient not taking: Reported on 09/15/2022) LABORATORY VALUES: WBC (k/uL) Date Value 09/15/2022 4.98 RBC (m/uL) Date Value 09/15/2022 3.63 (L) Hemoglobin (g/dL) Date Value 09/15/2022 10.9 (L) Hematocrit (%) Date Value 09/15/2022 35.0 (L) MCV (fL) Date Value 09/15/2022 96.4 MCH (pg) Date Value 09/15/2022 30.0 MCHC (g/dL) Date Value 09/15/2022 31.1 RDW-CV (%) Date Value 09/15/2022 14.6 Platelet Count (k/uL) Date Value 09/15/2022 130 (L) MPV (fL) Date Value 09/15/2022 9.8 Glucose (mg/dL) Date Value 09/15/2022 153 (H) BUN (mg/dL) Date Value 09/15/2022 26 (H) Creatinine (mg/dL) Date Value 09/15/2022 0.87 Sodium (mmol/L) Date Value 09/15/2022 139 Potassium (mmol/L) Date Value 09/15/2022 3.7 Chloride (mmol/L) Date Value 09/15/2022 104 CO2 (mmol/L) Date Value 09/15/2022 25 Protein, Total (g/dL) Date Value 09/15/2022 7.5 Albumin (g/dL) Date Value 09/15/2022 3.8 (L) Calcium, Total (mg/dL) Date Value 09/15/2022 9.4 Alkaline Phosphatase (U/L) Date Value 09/15/2022 71 Bilirubin, Total (mg/dL) Date Value 09/15/2022 0.5 AST (U/L) Date Value 09/15/2022 69 (H) ALT (U/L) Date Value 09/15/2022 43 (H) Cholesterol, Total (mg/dL) Date Value 03/30/2017 171 Triglyceride (mg/dL) Date Value 03/30/2017 118 DIAGNOSIS: (D69.3) Chronic ITP (idiopathic thrombocytopenia) (HCC) (primary encounter diagnosis) (G47.33) Obstructive sleep apnea syndrome PAST MEDICAL HISTORY Diagnosis Date Lupus (HCC) Thrombocytopenia (HCC) PAST SURGICAL HISTORY Procedure Laterality Date COLONSCOPY SCREENING HIGH RISK 07/25/2022 HYSTERECTOMY HX Social History Tobacco Use Smoking status: Light Smoker Types: Cigarettes Passive exposure: Past Smokeless tobacco: Never Vaping Use Vaping Use: Never used Substance Use Topics Alcohol use: No Drug use: No History reviewed. No pertinent family history. I spent a total of 20 minutes on the date of the service which included preparing to see the patient, [id number] patient care, completing clinical documentation, performing a medically appropriate examination, counseling and educating the patient/family/caregiver, ordering medications, tests, or p rocedures, and independently interpreting results (not separately reported). Rinku Ramsey MD, CPE H[facility]ology [facility] On[facility] Services Provided at: [place], [place] CC: Dr. Chadd Deluna documented [facility]Tr[facility] Evaluation note* Encounter Date Diagnosis Assessment Notes Treatment Notes Treatment Clinical Notes Sep, HTN (hypertension) (ICD-10 - I10) She likely has essential hypertension. Her blood pressure is high. She appears to be hypervolemic. Advised to limit the fluid intake to 50 ounces a day and takes low-salt diet. Her renal US showed b/l renal cyst and complex renal cyst in left kidney. I discussed with her the importance of good blood pressure control. Start Spironolactone 25 mg daily Sep, Lupus (ICD-10 - M32.9) She denies any symptoms. I have advised her to follow-up with rheumatology if she develop symptoms. Sep, Chronic ITP (idiopathic thrombocytopenia ) (ICD-10 - D69.3) Continue follow-up with hematology. Sep, ADALBERTO (obstructive sleep apnea) (ICD-10 - G47.33) She has a sleep apnea. There is a possibility her uncontrolled blood pressure may be due to the sleep apnea. I have advised her to follow with sleep specialist. Sep, Complex renal cyst (ICD-10 - N28.1) She has b/l renal cyst with no mass or stone. Her repeat renal ultrasound showed no evidence of kidney mass. Sep, Anemia (ICD-10 - D64.9) She follows with Hematology [facility] Other [id number] Miscellaneous Notes* Telephone Encounter - Jayden Connelly APRN.CNP - 08/05/2022 2:23 PM EST The following approved medication requests have been denied. Just refilled 3 weeks ago with 1 refill. Please call patient. Requested Prescriptions Refused Prescriptions Disp Refills losartan (COZAAR) 25 mg tablet [Pharmacy Med Name: LOSARTAN POTASSIUM 25 MG TAB] 60 tablet 1 Sig: TAKE 2 TABLETS BY MOUTH EVERY DAY Refused By: JAYDEN CONNELLY Reason for Refusal: A Refill not appropriate Jayden Connelly APRN.CNP documented in this encounterTr[facility]01-26-[facility]23 NoteHNO ID: [id number] Author: Jayden Connelly APRN.CNP Service: ? Author Type: Nurse Practitioner Type: Progress Notes Filed: 08/04/2022 3:42 PM Note Text: NAME: Andrei Leo CLINIC NO.: [id number] DATE OF SERVICE: August 04, 2021 ([place]) Some elements in this clinic note that are critical to medical decision making have been carefully reviewed and included from a prior clinic note dated: June 23, 2022. (Dr. Ramsey) Additional Clinicians involved in Andrei Leo's care: Dr. Shay, Dr. Deluna CC: Chronic ITP ASSESSMENT/PLAN: 1. Thrombocytopenia (HCC) - ICD9: 287.5, ICD10: D69.6 (primary diagnosis) She has chronic ITP. She has repsonded to Rituxan in the past, most recently she was on Plaquenil (with a history of Lupus) and did not respond to this. Bone marrow biopsy September 13, 2019 showed unremarkable maturing trilineage hematopoiesis. Completed 4 weekly doses of Rituxan 11/2019 and platelet counts improved but still low. 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 - Continues to respond to Tavalisse started 05/2021. 2. Pulmonary nodules - ICD9: 793.19, ICD10: R91.8 : 12/31/2020 CT Chest stable. No new findings. 3. Lupus (HCC) - ICD9: 710.0, ICD10: M32.9: She is asymptomatic from Lupus of the skin. 4. 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 5. HTN - continue Losartan plus HCTZ and continue managing HTN. Improved control even on Tavalisse. 6. Read lesion - may need biopsy in future. PLAN: Continue Tavalisse 100 mg twice daily. (Actually takes 2 pills at the same time) Losartan was increased by nephrology. Taking Losartan 50 mg daily. Continue HCTZ. Refer patient to dermatology for right read lesion and whole body skin assessment. Follow up in 6 weeks with labs. Treatment to Date: 05/14/2021 - Current: Tavalisse 4. 10/31/2019 - 11/21/2019: Weekly Rituxan x 4 3. 04/11/2019 Plaquenil which she stopped 2. January 2019 Prednisone 1. 2017 Rituxan X 4 HPI: Updated Visit, August 04, 2022: Andrei Leo returns for follow-up. She remains on Tavalisse and is tolerating it well. She denies any bleeding or abnormal bruising. Since her last visit she had a colonoscopy and had polyps removed. She states that she was notified of the biopsy results which were negative. She is scheduled for a hearing test on 08/10/2022 and will then see ENT for follow-up on 08/30/2022. 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 Overall, she is doing well today with no new complaints. Updated Visit, June 23, 2022: Andrei is doing well on Tavalisse 100 mg BID. Plts 118. Right anterior read has a erythematous wide streak that throbs at night and is tender to touch. But it has been there for 6 months - 12/09/2021. I don't think this is an infection. She has edema in both legs. Will recommend trying Ice for 15 minutes at a time to see if she has some reduction in inflammation. It is possible that this is a manifestation of lupus. Will monitor. Consider a biopsy of skin if not resolved. Updated Visit, May 12, 2022: Andrei Leo returns for follow-up. She remains on Tavalisse 100 mg twice daily and is tolerating it well. There has been no significant medical changes since her last visit. She states that she is feeling okay. She states that she feels a sinus infection coming on. She noticed her right high becoming puffy which is a sign. She denies fevers and chills. No bleeding or abnormal bruising. She has a follow-up scheduled with nephrology in either June or July. She offers no new complaints today. No new issues, problems or concerns. Updated Visit, March 31, 2022: Andrei is 71 yo and returns in follow up for ITP currently controlled with fostamatinib. Seems to bruise more easily with blood draws. Labs are stable. Plts 119k, hgb 11.6 Tolerating Tavalisse without difficulty however, LFT will need to be monitored as they are slightly increased. Got back from [place] and saw her sisters and had a nice trip with her of 54 yrs. Updated Visit, February 11, 2022: Andrei Leo returns for scheduled follow-up. She remains on Tavalisse 100 mg twice daily and is tolerating it well. She denies any signs of bleeding or abnormal bruising. Also no signs of blood clots. She saw Dr. Gilson Troncoso today. She states that she was told she has protein in her urine. She will have her next follow-up with nephrology in 6 months. She is stil having issues with her sinuses and plans to follow-up with the health clinic. She has ongoing issues with dry mouth. Overall, she is doing fairly well. Updated Visit, December 17, 2021: Andrei Leo returns for scheduled follow-up. She remains on Tavalisse and is tolerating it well. She denies any signs of bleeding or abnormal bruising. No signs (more content not included)...[facility] 08-04-2022 Miscellaneous Notes* Telephone Encounter - Jesica Muñoz - 08/04/2022 2:40 PM EST Patient wanted to hold off on being referred to Dermatology at this time. She is going to check with her insurance company for in network providers and let our office know on where she would like to be referred to. Jesica Muñoz documented in this encounterTr[facility]01-26-[facility]23 History of Present illness Narrative* Jayden Connelly APRN.CNP - 08/04/2022 2:04 PM EST Images from the original note were not included. NAME: Andrei Leo [facility] NO.: [id number] DATE OF SERVICE: August 04, 2021 ([place]) Some elements in this clinic note that are critical to medical decision making have been carefully reviewed and included from a prior clinic note dated: June 23, 2022. (Dr. Ramsey) Additional Clinicians involved in Andrei Leo's care: Dr. Shay, Dr. Deluna CC: Chronic ITP ASSESSMENT/PLAN: 1. Thrombocytopenia (HCC) - ICD9: 287.5, ICD10: D69.6 (primary diagnosis) She has chronic ITP. She has repsonded to Rituxan in the past, most recently she was on Plaquenil (with a history of Lupus) and did not respond to this. Bone marrow biopsy September 13, 2019 showed unremarkable maturing trilineage hematopoiesis. Completed 4 weekly doses of Rituxan 11/2019 and platelet counts improved but still low. 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 - Continues to respond to Tavalisse started 05/2021. 2. Pulmonary nodules - ICD9: 793.19, ICD10: R91.8 : 12/31/2020 CT Chest stable. No new findings. 3. Lupus (HCC) - ICD9: 710.0, ICD10: M32.9: She is asymptomatic from Lupus of the skin. 4. 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 5. HTN - continue Losartan plus HCTZ and continue managing HTN. Improved control even on Tavalisse. 6. Read lesion - may need biopsy in future. PLAN: Continue Tavalisse 100 mg twice daily. (Actually takes 2 pills at the same time) Losartan was increased by nephrology. Taking Losartan 50 mg daily. Continue HCTZ. Refer patient to dermatology for right read lesion and whole body skin assessment. Follow up in 6 weeks with labs. Treatment to Date: . 05/14/2021 - Current: Tavalisse 4. 10/31/2019 - 11/21/2019: Weekly Rituxan x 4 3. 04/11/2019 Plaquenil which she stopped 2. January 2019 Prednisone 1. 2017 Rituxan X 4 HPI: Updated Visit, August 04, 2022: Andrei Leo returns for follow-up. She remains on Tavalisse and is tolerating it well. She deniesany bleeding or abnormal bruising. Since her last visit she had a colonoscopy and had polyps removed. She states that she was notified of the biopsy results which were negative. She is scheduled for a hearing test on 08/10/2022 and will then see ENT for follow-up on 08/30/2022. 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 Overall, she is doing well today with no new complaints. Updated Visit, June 23, 2022: Andrei is doing well on Tavalisse 100 mg BID. Plts 118. Right anterior read has a erythematous wide streak that throbs at night and is tender to touch. But it has been there for 6 months - 12/09/2021. I don't think this is an infection. She has edema inboth legs. Will recommend trying Ice for 15 minutes at a time to see if she has some reduction in inflammation. It is possible that this is a manifestation of lupus. Will monitor. Consider a biopsy of skin if not resolved. Updated Visit, May 12, 2022: Andrei Leo returns for follow-up. She remains on Tavalisse 100 mg twice daily and is tolerating it well. There has been no significant medical changes since her last visit. She states that she is feeling okay. She states that she feels a sinus infection coming on. She noticed her right high becoming puffy which is a sign. She denies fevers and chills. No bleeding or abnormal bruising. She has a follow-up scheduled with nephrology in either June or July. She offers no new complaints today. No new issues, problems or concerns. Updated Visit, March 31, 2022: Andrei is 71 yo and returns in follow up for ITP currently controlled with fostamatinib. Seems to bruise more easily with blood draws. Labs are stable. Plts 119k, hgb 11.6 Tolerating Tavalisse without difficulty however, LFT will need to be monitored as they are slightlyincreased. Got back from [place] and saw her sisters and had a nice trip with her of 54 yrs. Updated Visit, February 11, 2022: Andrei Leo returns for scheduled follow-up. She remains on Tavalisse 100 mg twice daily and is tolerating it well. She denies any signs of bleeding or abnormal bruising. Also no signs of blood clots. She saw Dr. Gilson Troncoso today. She states that she was told she has protein in her urine. She will have her next follow-up with nephrology in 6 months. She is stil having issues with her sinuses and plans to follow-up with the health clinic. She has ongoing issues with dry mouth. Overall, she is doing fairly well. Updated Visit, December 17, 2021: Andrei Leo returns for scheduled follow-up. She remains on Tavalisse and is tolerating it well. She denies any signs of bleeding or abnormal bruising. No signs of blood clots. She had a consultation with nephrology, Dr. Gilson Sarah. Dr. Sarah increased her losartan to 50 mg daily. He also ordered a renal ultrasound. She has a follow up scheduled in February. She complains today of leg cramps. Overall, she is doing well. 11/20/2021 Ultrasound retroperitoneal complete Impression: 1. No evidence of echogenic calculi or hydronephrosis. 2. There are bilateral renal cysts. Measurements as described above. (Copy scanned) Updated Visit, October 28, 2021: No AE's Platelets responding nicely HTN improved on Losartan but is still due to see nephrology. She is tired and stressed awaiting her niece's news. (Niece is in hospice due to pancreatic cancer). She's doing well and wants to continue current regimen of therapy. Updated Visit, September 16, 2021: Andrei Leo returns for follow-up. She remains on Tavalisse 100 mg twice daily and is tolerating it well. There has been no significant medical changes since her last visit. She denies bleeding andabnormal bruising. She continues to have a cough but states the cough is under control. The cough mainly occurs at night but not every night. She offers no new complaints today. No new issues, problems or concerns. Updated Visit, August 05, 2021: Mrs. Leo returns today and platelets continue to respond. We changed her anti-HTNives and her cough resolved, but today she notes she has a dry cough that returned this past Monday. Doubt this is due to medications. Will continue monitoring her. Updated Visit, July 16, 2021: Andrei Leo returns for follow-up. She remains on Tavalisse 100 mg twice daily and is tolerating it well. She questions if the medication can cause her to lose her hair. She had been taking Tessalon Perles which helped with the cough. After stopping for 1 week her cough came back. She recently resumed the Tessalon Perles. She is complaining of chronic left leg pain and plans to make an appointment to see an orthopedic surgeon. She canceled her nephrology appointment because she did not understand why she was going to see a mounting inspector for her blood pressure. Patient also has other mild medical issues and plans to get reestablished with a PCP. Overall, she is doing fairly well. Updated Visit, June 25, 2021: Andrei is 70 yo and returns in follow up for ITP currently on Tavalisse and tolerating it and responding to it very well. Platelets have remained stable and above 50k since starting on it in mid May 2021. BP is stable. Updated Visit, June 11, 2021: Andrei Leo returns for follow-up. She remains on tab Tavalisse, and is tolerating it well. Aftershe takes the Tavalisse, she gets a mota headache . It goes away very quickly. She denies any signs of bleeding or abnormal bruising. She still has cough despite stopping the lisinopril. She denies fevers, chills, night sweats and signs/symptoms of infection. Her granddaughter developed Covid after Thanksgiving. The patient tested and she is negative. She is currently watching her great grandchildren. She denies any diarrhea. Updated Visit, May 27, 2021: Returns to see response to Tavalisse which appears to be working nicely. Abdominal cramps and into ribs. Possibly dehydrated BP is better but Cough from Lisinopril persists and is keeping her up. Updated Visit, May 13, 2021: Still has high blood pressure and has some concern that lisinopril is causing a cough but her coughis not consistent with lisinopril - she has a tickle in her throat and has post nasal drip that induces it. She will need to stay on her HCTZ which is only intermittent right now. Will increase her lisinopril. Has chronic edema in left left that has had a skin graft. plts are 23 k today. Sinusitis is better. Updated Visit, April 29, 2021: Andrei Doesn't feel well today. 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 Sinus are full and she doesn't feel great. Additionally her plateltes have dropped below 50k again and since she has failed prior therapy, will try her on fostamatininb. Isn't tolerating HCTZ. Will try Lisinopril. Updated Visit, February 24, 2021: Labs are stable but her fatigue is prominent. She is caring for her and grand kids. TSH wasnormal. Updated Visit, January 27, 2021: Andrei Leo returns for scheduled follow-up. There has been no significant medical changes since her last visit. She denies bleeding and abnormal bruising. She complains of low energy. She has occasional exertional shortness of breath. She has a cough at night and relates it to sinus drainage. Overall, doing fairly well. Updated Visit, December 18, 2020: Tired during the day but not sleepy. HTN is notable Fatigue likely associated with weight gain Platelets are down today, will see her in 4 Weeks, recheck BP and platelets - consider tavalisse atthat time. Intermittent nose bleeds ? HTN vs. ITP - platelet count is not particularly low to cause that. Updated Visit, September 17, 2020: Andrei is 69 yo and returns to review labs. She never got seen for her elevated BP. I again cautionedher and urged her to get evaluated. She smokes a little with coffee, No alcohol Light headedness is improved but blood pressure is elevated and needs her PCP to make recommendations. She is beyond 10 years from her last colonoscopy and will need to schedule screening again. Platelets are stable and shouldn't interfere with any procedures that she may need. Updated Visit, June 25, 2020: Andrei is a very nice 69-year-old woman returning with a history of chronic ITP. She has stable counts but still having intermittent lightheadedness although less frequently. She states her cough is improved but often has a dry mouth. Corrected the prior notes- she isn't using CPAP at all, but only has mild apnea on recent re-check.I still believe that using CPAP may be of benefit to her. I recommended that she see her primary care physician for lightheadedness and dizziness at her lastvisit but she never made it. Updated Visit, April 02, 2020: Andrei is 69-year-old woman with history of ITP treated with Rituxan through November 2019. On return today, her platelets have been stable and improved. Her CPAP improved her overall fatigue and she is more compliant with usage. However, she reports having had 2 dizzy spells fairly recently and says she will follow-up with her primary care physician to work this up if it persists. She is requested Cade Das again for her chronic intermittent cough. She is otherwise doing very well. Updated Visit, January 02, 2020: Andrei is 69 yo and is doing well. Platelets are stable. She is asymptomatic. If she stops responding, we will switch to Tavalisse. Updated Visit, December 05, 2019: Andrei is 69 years old and returns having completed Rituxan for 4 weekly doses. Her platelet counts are stable. She has no sequelae of thrombocytopenia. Reviewing her CBC shows white blood cell count 3.26, platelet count 83,000, H/H is 11.2/36.7. She reports daytime fatigue and a history of snoring having had a marginal sleep study in the past,she is much heavier now on I suspect that this may be contributing to her findings of both leukopenia and thrombocytopenia. I've encouraged her to obtain a sleep study. Her review of systems is otherwise negative by full review of organ systems. Updated Visit, October 31, 2019: Blow nose with slight bleeding with sneeze otherwise is asymptomatic. However, I am worried that she will have a more traumatic bleed. She is willing to proceed. Updated Visit, October 21, 2019: She is not on anything currently for her ITP. She has misty having her blood checked every three weeks and last week her platelet count was 24,000. She did notice some mild bruising. No bleeding. She does have fatigue. No new medications or infections. She does occasionally have a cough but this is not new for her. . Updated Visit, September 25, 2019: Returns -results are still pending from bone marrow studies but I spoke with the pathologist reading the slides and he indicated no significant acute pathology. Platelets are stable but slowly dropping, no petechiae reported or noted on visualization. She is aware of risks for bleeding especially if platelets drop precipitously. Exam limited to gross visualization where appropriate due to COVID-19. Updated Visit, September 13, 2019: Returns to review CT abdomen wich is essentially unremarkable for etiology of pain. CXR show lower lobe infiltrates consistent with her know upper respiratory tract infection and cough. She will be undergoing bone marrow aspirate in order to see if her marrow is intact and if she is making adequate platelets. Radiographic Data: Reviewed on January 27 2021. 3. 12/31/2020 CT Chest IMPRESSION: 1. Multiple subcentimeter nodular opacities measuring up to 7 mm (30-40) stable since 12/19/2019. If clinically indicated, consider one-year follow-up. 2. No interval changesince 12/19/2019. 2. 12/31/2020 CT chest IMPRESSION: 1. Multiple subcentimeter nodular opacities measuring up to 7 mm (30-40) stable since 12/19/2019. If clinically indicated, consider one-year follow-up. 2. No interval change since 12/19/2019. 1. 09/04/2019: CT abd/Pelvis w/: No evidence of bowel obstruction or pericolic inflammatory change. The appendix is not visualized but no evidence of inflammatory change is noted in the right lower quadrant of the abdomen. Borderline aneurysmal enlargement of the infrarenal abdominal aorta measuringup to 3.0 cm diameter. Subcentimeter nodular opacities in the right lung base measuring up to 4-5 mm. Multiple bilateral renal cysts. Subcentimeter right adrenal myelolipoma. Pathologic Profile/ Molecular Data: Reviewed on September 25, 2019 1. 09/13/2019 Bone marrow sternal aspirate: Bone marrow aspirate, clot section and peripheral blood (A-B): - Non-diagnostic lymphoid aggregates, see comment. - Unremarkable maturing trilineage hematopoiesis. REVIEW OF SYSTEMS Per HPI and otherwise negative by full review of organ systems. ECOG PERFORMANCE STATUS: 0 PHYSICAL EXAMINATION: Vitals: BP 149/80 Pulse 76 Temp (Src) 97.4 (Temporal) Resp 16 Ht 5' 2.52 (1.59m) Wt 188 lb 3.2 oz (85.4kg) SpO2 98% BMI 33.85 kg/(m^2). Body surface area is 1.94 meters squared. Exam limited to gross visualization where appropriate due to COVID-19. Gen.: This is an age-appropriate patient in no acute distress. Head: Appears atraumatic with no visible lesions. Eyes: Pupils equally round and reactive to light, extraocular muscles are intact. Neck: Supple. Mouth: Masked. Respiratory: Appears to be respiring comfortably. Neurologic: Nonfocal to gross visualization. Alert and oriented 3. Psychiatric: No evidence of inappropriate anxiety or depression. Skin: Visible areas of skin without rash, lesions, wounds or petechiae. ALLERGIES: ALLERGIES Allergen Reactions Tetnus [Tetanus Vac* Unknown Vancomycin Unknown Burning sensation MEDICATIONS: benzonatate (TESSALON PERLE) 100 mg capsule TAKE 1 CAPSULE BY MOUTH EVERY 6 HOURS NEEDED FOR COUGH. pilocarpine (SALAGEN) 5 mg tablet TAKE 1 TABLET BY MOUTH THREE TIMES A DAY losartan (COZAAR) 25 mg tablet TAKE 2 TABLETS BY MOUTH EVERY DAY fostamatinib (TAVALISSE) 100 mg tablet Take 1 tablet by mouth twice daily. hydroCHLOROthiazide (HYDRODIURIL, ESIDRIX) 25 mg tablet TAKE 1 TABLET BY MOUTH EVERY DAY cholecalciferol, vitamin D3, (VITAMIN D3 ORAL) Take by mouth. LABORATORY VALUES: Hemoglobin (g/dL) Date Value 08/04/2022 11.6 08/05/2021 11.2 Hematocrit (%) Date Value 08/04/2022 36.7 08/05/2021 36.4 WBC (k/uL) Date Value 08/04/2022 5.64 08/05/2021 5.36 Platelet Count (k/uL) Date Value 08/04/2022 131 08/05/2021 93 DIAGNOSIS: (D69.3) Chronic ITP (idiopathic thrombocytopenia) (HCC) (primary encounter diagnosis) (G47.33) Obstructive sleep apnea syndrome (I10) Hypertension, unspecified type (M32.9) Systemic lupus erythematosus, unspecified SLE type, unspecified organ involvement status (HCC) (R53.81, R53.83) Malaise and fatigue PAST MEDICAL HISTORY Diagnosis Date Lupus (HCC) Thrombocytopenia (HCC) PAST SURGICAL HISTORY Procedure Laterality Date HYSTERECTOMY HX Social History Tobacco Use Smoking status: Light Smoker Types: Cigarettes Passive exposure: Past Smokeless tobacco: Never Vaping Use Vaping Use: Never used Substance Use Topics Alcohol use: No Drug use: No History reviewed. No pertinent family history. Jayden Connelly APRN.CNP Hematology and Oncology Services Provided at: [place], [place] CC: Dr. Chadd Deluna I spent a total of 30 minutes on the date of the service which included preparing to see the patient, [id number] patient care, completing clinical documentation, obtaining and/or reviewing separately obtained history, performing a medically appropriate examination, counseling and educating the pat ient/family/caregiver, ordering medications, tests, or procedures, independently interpreting results (not separately reported), and communicating results to the patient/family/caregiver. documented in this [facility]01-16-2023 Miscellaneous Notes* Telephone Encounter - Jayden Connelly APRN.CNP - 07/25/2022 10:33 AM EST The following approved medication requests have been transmitted electronically. Requested Prescriptions Signed Prescriptions Disp Refills benzonatate (TESSALON PERLE) 100 mg capsule 100 capsule 0 Sig: TAKE 1 CAPSULE BY MOUTH EVERY 6 HOURS NEEDED FOR COUGH. Authorizing Provider: JAYDEN CONNELLY APRN.CNP documented in this [facility]01-04-2023 Miscellaneous Notes* Telephone Encounter - Jayden Connelly APRN.CNP - 07/13/2022 4:01 PM EST The following approved medication requests have been transmitted electronically. Requested Prescriptions Signed Prescriptions Disp Refills losartan (COZAAR) 25 mg tablet 60 tablet 1 Sig: TAKE 2 TABLETS BY MOUTH EVERY DAY Authorizing Provider: JAYDEN CONNELLY APRN.CNP documented in this [facility]12-15-2022 NoteHNO ID: [id number] Author: Rinku Ramsey MD Service: ? Author Type: Physician Type: Progress Notes Filed: 06/23/2022 2:47 PM Note Text: NAME: LeoAndrei CLINIC NO.: [id number] DATE OF SERVICE: June 23, 2022 ([place]) Some elements in this clinic note that are critical to medical decision making have been carefully reviewed and included from a prior clinic note dated: May 12, 2022 ([place]) Additional Clinicians involved in Paulalicia Leo's care: Dr. Shay, Dr. Deluna CC: Chronic ITP ASSESSMENT/PLAN: 1. Thrombocytopenia (HCC) - ICD9: 287.5, ICD10: D69.6 (primary diagnosis) She has chronic ITP. She has repsonded to Rituxan in the past, most recently she was on Plaquenil (with a history of Lupus) and did not respond to this. Bone marrow biopsy September 13, 2019 showed unremarkable maturing trilineage hematopoiesis. Completed 4 weekly doses of Rituxan 11/2019 and platelet counts improved but still low. 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 - Continues to respond to Tavalisse started 05/2021. 2. Pulmonary nodules - ICD9: 793.19, ICD10: R91.8 : 12/31/2020 CT Chest stable. No new findings. 3. Lupus (HCC) - ICD9: 710.0, ICD10: M32.9: She is asymptomatic from Lupus of the skin. 4. 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 5. HTN - continue Losartan plus HCTZ and continue managing HTN. Improved control even on Tavalisse. 6. Read lesion - may need biopsy in future. PLAN: Continue Tavalisse 100 mg twice daily. Losartan was increased by nephrology. Taking Losartan 50 mg daily. Continue HCTZ. Right read lesion - trial of ice. Follow up in 6 weeks with labs. See Jayden quinn. - consider biopsy of right read. Treatment to Date: . 05/14/2021 - Current: Tavalisse 4. 10/31/2019 - 11/21/2019: Weekly Rituxan x 4 3. 04/11/2019 Plaquenil which she stopped 2. January 2019 Prednisone 1. 2017 Rituxan X 4 HPI: Updated Visit, June 23, 2022: Andrei is doing well on Tavalisse 100 mg BID. Plts 118. Right anterior read has a erythematous wide streak that throbs at night and is tender to touch. But it has been there for 6 months - 12/09/2021. I don't think this is an infection. She has edema in both legs. Will recommend trying Ice for 15 minutes at a time to see if she has some reduction in inflammation. It is possible that this is a manifestation of lupus. Will monitor. Consider a biopsy of skin if not resolved. Updated Visit, May 12, 2022: Andrei Leo returns for follow-up. She remains on Tavalisse 100 mg twice daily and is tolerating it well. There has been no significant medical changes since her last visit. She states that she is feeling okay. She states that she feels a sinus infection coming on. She noticed her right high becoming puffy which is a sign. She denies fevers and chills. No bleeding or abnormal bruising. She has a follow-up scheduled with nephrology in either June or July. She offers no new complaints today. No new issues, problems or concerns. Updated Visit, March 31, 2022: Andrei is 71 yo and returns in follow up for ITP currently controlled with fostamatinib. Seems to bruise more easily with blood draws. Labs are stable. Plts 119k, hgb 11.6 Tolerating Tavalisse without difficulty however, LFT will need to be monitored as they are slightly increased. Got back from [place] and saw her sisters and had a nice trip with her of 54 yrs. Updated Visit, February 11, 2022: Andrei Leo returns for scheduled follow-up. She remains on Tavalisse 100 mg twice daily and is tolerating it well. She denies any signs of bleeding or abnormal bruising. Also no signs of blood clots. She saw Dr. Gilson Troncoso today. She states that she was told she has protein in her urine. She will have her next follow-up with nephrology in 6 months. She is stil having issues with her sinuses and plans to follow-up with the health clinic. She has ongoing issues with dry mouth. Overall, she is doing fairly well. Updated Visit, December 17, 2021: Andrei Leo returns for scheduled follow-up. She remains on Tavalisse and is tolerating it well. She denies any signs of bleeding or abnormal bruising. No signs of blood clots. She had a consultation with nephrology, Dr. Gilson Sarah. Dr. Sarah increased her losartan to 50 mg daily. He also ordered a renal ultrasound. She has a follow up scheduled in February. She complains today of leg cramps. Overall, she is doing well. 11/20/2021 Ultrasound retroperitoneal complete Impression: 1. No evidence of echogenic calculi or hydronephrosis. 2. There are bilateral renal cysts. Measurements as described above. (Copy scanned) Updated Visit, October 28, 2021: No AE's Platelets responding nicely HTN improved on Losartan but is still due to see nephrology. She is tired and stressed awaiting her niece's new (more content not included)...[facility]12-15-2022 Instructions* Patient Instructions* Rinku Ramsey MD - 06/23/2022 2:44 PM EST Continue Tavalisse 100 mg twice daily. Losartan was increased by nephrology. Taking Losartan 50 mg daily. Continue HCTZ. Right read lesion - trial of ice. Follow up in 6 weeks with labs. See Jayden please. - consider biopsy of right read. [facility] of Present illness Narrative* Rinku Ramsey MD - 06/23/2022 2:30 PM EST Images from the original note were not included. NAME: [facility] NO.: [id number] DATE OF SERVICE: June 23, 2022 ([place]oxy) Some elements in this clinic note that are critical to medical decision making have been carefully reviewed and included from a prior clinic note dated: May 12, 2022 ([place]) Additional Clinicians involved in Andrei Leo's care: Dr. Shay, Dr. Deluna CC: Chronic ITP ASSESSMENT/PLAN: 1. Thrombocytopenia (HCC) - ICD9: 287.5, ICD10: D69.6 (primary diagnosis) She has chronic ITP. She has repsonded to Rituxan in the past, most recently she was on Plaquenil (with a history of Lupus) and did not respond to this. Bone marrow biopsy September 13, 2019 showed unremarkable maturing trilineage hematopoiesis. Completed 4 weekly doses of Rituxan 11/2019 and platelet counts improved but still low. 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 - Continues to respond to Tavalisse started 05/2021. 2. Pulmonary nodules - ICD9: 793.19, ICD10: R91.8 : 12/31/2020 CT Chest stable. No new findings. 3. Lupus (HCC) - ICD9: 710.0, ICD10: M32.9: She is asymptomatic from Lupus of the skin. 4. 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 5. HTN - continue Losartan plus HCTZ and continue managing HTN. Improved control even on Tavalisse. 6. Read lesion - may need biopsy in future. PLAN: Continue Tavalisse 100 mg twice daily. Losartan was increased by nephrology. Taking Losartan 50 mg daily. Continue HCTZ. Right read lesion - trial of ice. Follow up in 6 weeks with labs. See Jayden please. - consider biopsy of right read. Treatment to Date: 05/14/2021 - Current: Tavalisse 4. 10/31/2019 - 11/21/2019: Weekly Rituxan x 4 3. 04/11/2019 Plaquenil which she stopped 2. January 2019 Prednisone 1. 2017 Rituxan X 4 HPI: Updated Visit, June 23, 2022: Andrei is doing well on Tavalisse 100 mg BID. Plts 118. Right anterior read has a erythematous wide streak that throbs at night and is tender to touch. But it has been there for 6 months - 12/09/2021. I don't think this is an infection. She has edema inboth legs. Will recommend trying Ice for 15 minutes at a time to see if she has some reduction in inflammation. It is possible that this is a manifestation of lupus. Will monitor. Consider a biopsy of skin if not resolved. Updated Visit, May 12, 2022: Andrei Leo returns for follow-up. She remains on Tavalisse 100 mg twice daily and is tolerating it well. There has been no significant medical changes since her last visit. She states that she is feeling okay. She states that she feels a sinus infection coming on. She noticed her right high becoming puffy which is a sign. She denies fevers and chills. No bleeding or abnormal bruising. She has a follow-up scheduled with nephrology in either June or July. She offers no new complaints today. No new issues, problems or concerns. Updated Visit, March 31, 2022: Andrei is 71 yo and returns in follow up for ITP currently controlled with fostamatinib. Seems to bruise more easily with blood draws. Labs are stable. Plts 119k, hgb 11.6 Tolerating Tavalisse without difficulty however, LFT will need to be monitored as they are slightlyincreased. Got back from [place] and saw her sisters and had a nice trip with her of 54 yrs. Updated Visit, February 11, 2022: Andrei Leo returns for scheduled follow-up. She remains on Tavalisse 100 mg twice daily and is tolerating it well. She denies any signs of bleeding or abnormal bruising. Also no signs of blood clots. She saw Dr. Gilson Troncoso today. She states that she was told she has protein in her urine. She will have her next follow-up with nephrology in 6 months. She is stil having issues with her sinuses and plans to follow-up with the health clinic. She has ongoing issues with dry mouth. Overall, she is doing fairly well. Updated Visit, December 17, 2021: Andrei Leo returns for scheduled follow-up. She remains on Tavalisse and is tolerating it well. She denies any signs of bleeding or abnormal bruising. No signs of blood clots. She had a consultation with nephrology, Dr. Gilson Sarah. Dr. Sarah increased her losartan to 50 mg daily. He also ordered a renal ultrasound. She has a follow up scheduled in February. She complains today of leg cramps. Overall, she is doing well. 11/20/2021 Ultrasound retroperitoneal complete Impression: 1. No evidence of echogenic calculi or hydronephrosis. 2. There are bilateral renal cysts. Measurements as described above. (Copy scanned) Updated Visit, October 28, 2021: No AE's Platelets responding nicely HTN improved on Losartan but is still due to see nephrology. She is tired and stressed awaiting her niece's news. (Niece is in hospice due to pancreatic cancer). She's doing well and wants to continue current regimen of therapy. Updated Visit, September 16, 2021: Andrei Leo returns for follow-up. She remains on Tavalisse 100 mg twice daily and is tolerating it well. There has been no significant medical changes since her last visit. She denies bleeding andabnormal bruising. She continues to have a cough but states the cough is under control. The cough mainly occurs at night but not every night. She offers no new complaints today. No new issues, problems or concerns. Updated Visit, August 05, 2021: Mrs. Leo returns today and platelets continue to respond. We changed her anti-HTNives and her cough resolved, but today she notes she has a dry cough that returned this past Monday. Doubt this is due to medications. Will continue monitoring her. Updated Visit, July 16, 2021: Andrei Leo returns for follow-up. She remains on Tavalisse 100 mg twice daily and is tolerating it well. She questions if the medication can cause her to lose her hair. She had been taking Tessalon Perles which helped with the cough. After stopping for 1 week her cough came back. She recently resumed the Tessalon Perles. She is complaining of chronic left leg pain and plans to make an appointment to see an orthopedic surgeon. She canceled her nephrology appointment because she did not understand why she was going to see a mounting inspector for her blood pressure. Patient also has other mild medical issues and plans to get reestablished with a PCP. Overall, she is doing fairly well. Updated Visit, June 25, 2021: Andrei is 70 yo and returns in follow up for ITP currently on Tavalisse and tolerating it and responding to it very well. Platelets have remained stable and above 50k since starting on it in mid May 2021. BP is stable. Updated Visit, June 11, 2021: Andrei Leo returns for follow-up. She remains on tab Tavalisse, and is tolerating it well. Aftershe takes the Tavalisse, she gets a mota headache . It goes away very quickly. She denies any signs of bleeding or abnormal bruising. She still has cough despite stopping the lisinopril. She denies fevers, chills, night sweats and signs/symptoms of infection. Her granddaughter developed Covid after Thanksgiving. The patient tested and she is negative. She is currently watching her great grandchildren. She denies any diarrhea. Updated Visit, May 27, 2021: Returns to see response to Tavalisse which appears to be working nicely. Abdominal cramps and into ribs. Possibly dehydrated BP is better but Cough from Lisinopril persists and is keeping her up. Updated Visit, May 13, 2021: Still has high blood pressure and has some concern that lisinopril is causing a cough but her coughis not consistent with lisinopril - she has a tickle in her throat and has post nasal drip that induces it. She will need to stay on her HCTZ which is only intermittent right now. Will increase her lisinopril. Has chronic edema in left left that has had a skin graft. plts are 23 k today. Sinusitis is better. Updated Visit, April 29, 2021: Andrei Doesn't feel well today. 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 Sinus are full and she doesn't feel great. Additionally her plateltes have dropped below 50k again and since she has failed prior therapy, will try her on fostamatininb. Isn't tolerating HCTZ. Will try Lisinopril. Updated Visit, February 24, 2021: Labs are stable but her fatigue is prominent. She is caring for her and grand kids. TSH wasnormal. Updated Visit, January 27, 2021: Andrei Leo returns for scheduled follow-up. There has been no significant medical changes since her last visit. She denies bleeding and abnormal bruising. She complains of low energy. She has occasional exertional shortness of breath. She has a cough at night and relates it to sinus drainage. Overall, doing fairly well. Updated Visit, December 18, 2020: Tired during the day but not sleepy. HTN is notable Fatigue likely associated with weight gain Platelets are down today, will see her in 4 Weeks, recheck BP and platelets - consider tavalisse atthat time. Intermittent nose bleeds ? HTN vs. ITP - platelet count is not particularly low to cause that. Updated Visit, September 17, 2020: Andrei is 69 yo and returns to review labs. She never got seen for her elevated BP. I again cautionedher and urged her to get evaluated. She smokes a little with coffee, No alcohol Light headedness is improved but blood pressure is elevated and needs her PCP to make recommendations. She is beyond 10 years from her last colonoscopy and will need to schedule screening again. Platelets are stable and shouldn't interfere with any procedures that she may need. Updated Visit, June 25, 2020: Andrei is a very nice 69-year-old woman returning with a history of chronic ITP. She has stable counts but still having intermittent lightheadedness although less frequently. She states her cough is improved but often has a dry mouth. Corrected the prior notes- she isn't using CPAP at all, but only has mild apnea on recent re-check.I still believe that using CPAP may be of benefit to her. I recommended that she see her primary care physician for lightheadedness and dizziness at her lastvisit but she never made it. Updated Visit, April 02, 2020: Andrei is 69-year-old woman with history of ITP treated with Rituxan through November 2019. On return today, her platelets have been stable and improved. Her CPAP improved her overall fatigue and she is more compliant with usage. However, she reports having had 2 dizzy spells fairly recently and says she will follow-up with her primary care physician to work this up if it persists. She is requested Tessalon Perles again for her chronic intermittent cough. She is otherwise doing very well. Updated Visit, January 02, 2020: Andrei is 69 yo and is doing well. Platelets are stable. She is asymptomatic. If she stops responding, we will switch to Tavalisse. Updated Visit, December 05, 2019: Andrei is 69 years old and returns having completed Rituxan for 4 weekly doses. Her platelet counts are stable. She has no sequelae of thrombocytopenia. Reviewing her CBC shows white blood cell count 3.26, platelet count 83,000, H/H is 11.2/36.7. She reports daytime fatigue and a history of snoring having had a marginal sleep study in the past,she is much heavier now on I suspect that this may be contributing to her findings of both leukopenia and thrombocytopenia. I've encouraged her to obtain a sleep study. Her review of systems is otherwise negative by full review of organ systems. Updated Visit, October 31, 2019: Blow nose with slight bleeding with sneeze otherwise is asymptomatic. However, I am worried that she will have a more traumatic bleed. She is willing to proceed. Updated Visit, October 21, 2019: She is not on anything currently for her ITP. She has misty having her blood checked every three weeks and last week her platelet count was 24,000. She did notice some mild bruising. No bleeding. She does have fatigue. No new medications or infections. She does occasionally have a cough but this is not new for her. . Updated Visit, September 25, 2019: Returns -results are still pending from bone marrow studies but I spoke with the pathologist reading the slides and he indicated no significant acute pathology. Platelets are stable but slowly dropping, no petechiae reported or noted on visualization. She is aware of risks for bleeding especially if platelets drop precipitously. Exam limited to gross visualization where appropriate due to COVID-19. Updated Visit, September 13, 2019: Returns to review CT abdomen wich is essentially unremarkable for etiology of pain. CXR show lower lobe infiltrates consistent with her know upper respiratory tract infection and cough. She will be undergoing bone marrow aspirate in order to see if her marrow is intact and if she is making adequate platelets. Radiographic Data: Reviewed on January 27 2021. 3. 12/31/2020 CT Chest IMPRESSION: 1. Multiple subcentimeter nodular opacities measuring up to 7 mm (30-40) stable since 12/19/2019. If clinically indicated, consider one-year follow-up. 2. No interval changesince 12/19/2019. 2. 12/31/2020 CT chest IMPRESSION: 1. Multiple subcentimeter nodular opacities measuring up to 7 mm (30-40) stable since 12/19/2019. If clinically indicated, consider one-year follow-up. 2. No interval change since 12/19/2019. 1. 09/04/2019: CT abd/Pelvis w/: No evidence of bowel obstruction or pericolic inflammatory change. The appendix is not visualized but no evidence of inflammatory change is noted in the right lower quadrant of the abdomen. Borderline aneurysmal enlargement of the infrarenal abdominal aorta measuringup to 3.0 cm diameter. Subcentimeter nodular opacities in the right lung base measuring up to 4-5 mm. Multiple bilateral renal cysts. Subcentimeter right adrenal myelolipoma. Pathologic Profile/ Molecular Data: Reviewed on September 25, 2019 1. 09/13/2019 Bone marrow sternal aspirate: Bone marrow aspirate, clot section and peripheral blood (A-B): - Non-diagnostic lymphoid aggregates, see comment. - Unremarkable maturing trilineage hematopoiesis. REVIEW OF SYSTEMS Per HPI and otherwise negative by full review of organ systems. ECOG PERFORMANCE STATUS: 0 PHYSICAL EXAMINATION: Vitals: BP 156/88[manual BP[ Pulse 66 Temp (Src) 97.6 (Temporal) Resp 16 Ht 5' 2.52 (1.59m) Wt 194 lb 9.6 oz (88.3kg) SpO2 100% BMI 35.00 kg/(m^2). Body surface area is 1.97 meters squared. Exam limited to gross visualization where appropriate due to COVID-19. Gen.: This is an age-appropriate patient in no acute distress. Head: Appears atraumatic with no visible lesions. Eyes: Pupils equally round and reactive to light, extraocular muscles are intact. Neck: Supple. Mouth: Masked. Respiratory: Appears to be respiring comfortably. Neurologic: Nonfocal to gross visualization. Alert and oriented 3. Psychiatric: No evidence of inappropriate anxiety or depression. Skin: Visible areas of skin without rash, lesions, wounds or petechiae. ALLERGIES: ALLERGIES Allergen Reactions Tetnus [Tetanus Vac* Unknown Vancomycin Unknown Burning sensation MEDICATIONS: losartan (COZAAR) 25 mg tablet TAKE 2 TABLETS BY MOUTH EVERY DAY pilocarpine (SALAGEN) 5 mg tablet TAKE 1 TABLET BY MOUTH THREE TIMES A DAY fostamatinib (TAVALISSE) 100 mg tablet Take 1 tablet by mouth twice daily. benzonatate (TESSALON PERLE) 100 mg capsule Take 1 capsule by mouth every 6 hours as needed for cough. hydroCHLOROthiazide (HYDRODIURIL, ESIDRIX) 25 mg tablet TAKE 1 TABLET BY MOUTH EVERY DAY cholecalciferol, vitamin D3, (VITAMIN D3 ORAL) Take by mouth. LABORATORY VALUES: WBC (k/uL) Date Value 06/23/2022 5.51 RBC (m/uL) Date Value 06/23/2022 3.79 (L) Hemoglobin (g/dL) Date Value 06/23/2022 11.2 (L) Hematocrit (%) Date Value 06/23/2022 36.2 MCV (fL) Date Value 06/23/2022 95.5 MCH (pg) Date Value 06/23/2022 29.6 MCHC (g/dL) Date Value 06/23/2022 30.9 RDW-CV (%) Date Value 06/23/2022 14.5 Platelet Count (k/uL) Date Value 06/23/2022 118 (L) MPV (fL) Date Value 06/23/2022 10.1 Glucose (mg/dL) Date Value 06/23/2022 112 (H) BUN (mg/dL) Date Value 06/23/2022 22 (H) Creatinine (mg/dL) Date Value 06/23/2022 0.86 Sodium (mmol/L) Date Value 06/23/2022 135 (L) Potassium (mmol/L) Date Value 06/23/2022 3.7 Chloride (mmol/L) Date Value 06/23/2022 102 CO2 (mmol/L) Date Value 06/23/2022 28 Protein, Total (g/dL) Date Value 06/23/2022 7.7 Albumin (g/dL) Date Value 06/23/2022 3.9 Calcium, Total (mg/dL) Date Value 06/23/2022 9.4 Alkaline Phosphatase (U/L) Date Value 06/23/2022 81 Bilirubin, Total (mg/dL) Date Value 06/23/2022 0.6 AST (U/L) Date Value 06/23/2022 54 (H) ALT (U/L) Date Value 06/23/2022 38 Cholesterol, Total (mg/dL) Date Value 03/30/2017 171 Triglyceride (mg/dL) Date Value 03/30/2017 118 DIAGNOSIS: No diagnosis found. PAST MEDICAL HISTORY Diagnosis Date Lupus (HCC) Thrombocytopenia (HCC) PAST SURGICAL HISTORY Procedure Laterality Date HYSTERECTOMY HX Social History Tobacco Use Smoking status: Light Smoker Types: Cigarettes Passive exposure: Past Smokeless tobacco: Never Vaping Use Vaping Use: Never used Substance Use Topics Alcohol use: No Drug use: No No family history on file. I spent a total of 30 minutes on the date of the service which included preparing to see the patient, [id number] patient care, completing clinical documentation, performing a medically appropriate examination, counseling and educating the patient/family/caregiver, ordering medications, tests, or p rocedures, and independently interpreting results (not separately reported). Rinku Ramsey MD, CPE Hematology and Oncology Services Provided at: [place], [place] CC: Dr. Chadd Deluna [facility] Miscellaneous Notes* Telephone Encounter - Jayden Connelly APRN.[employer] - 05/20/2022 3:34 PM EST The following approved medication requests have been transmitted electronically. Requested Prescriptions Signed Prescriptions Disp Refills losartan (COZAAR) 25 mg tablet 60 tablet 1 Sig: TAKE 2 TABLETS BY MOUTH EVERY DAY Authorizing Provider: JAYDEN CONNELLY APRN.CNP documented [facility] this encounterTr[facility]11-03-[facility]22 History of Present illness Narrative* Jayden Connelly APRN.CNP - 05/12/2022 2:15 PM EDT NAME: [facility] NO.: [id number] DATE OF SERVICE: May 12, 2022 ([place]) Some elements in this clinic note that are critical to medical decision making have been carefully reviewed and included from a prior clinic note dated: March 31, 2022 (Dr. Ramsey) Additional Clinicians involved in Andrei Leo's care: Dr. Shay, Dr. Deluna CC: Chronic ITP ASSESSMENT/PLAN: 1. Thrombocytopenia (HCC) - ICD9: 287.5, ICD10: D69.6 (primary diagnosis) She has chronic ITP. She has repsonded to Rituxan in the past, most recently she was on Plaquenil (with a history of Lupus) and did not respond to this. Bone marrow biopsy September 13, 2019 showed unremarkable maturing trilineage hematopoiesis. Completed 4 weekly doses of Rituxan 11/2019 and platelet counts improved but still low. 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 - Continues to respond to Tavalisse started 05/2021. 2. Pulmonary nodules - ICD9: 793.19, ICD10: R91.8 : 12/31/2020 CT Chest stable. No new findings. 3. Lupus (HCC) - ICD9: 710.0, ICD10: M32.9: She is asymptomatic from Lupus of the skin. 4. 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 5. HTN - continue Losartan plus HCTZ and continue managing HTN. Improved control even on Tavalisse. PLAN: 1. Continue Tavalisse 100 mg twice daily. 2. Losartan was increased by nephrology. Taking Losartan 50 mg daily. 3. Contnue HCTZ. 4. Follow up in 6 weeks with labs. Treatment to Date: 5. 05/14/2021 - Current: Tavalisse 4. 10/31/2019 - 11/21/2019: Weekly Rituxan x 4 3. 04/11/2019 Plaquenil which she stopped 2. January 2019 Prednisone 1. 2017 Rituxan X 4 HPI: Updated Visit, May 12, 2022: Andrei Leo returns for follow-up. She remains on Tavalisse 100 mg twice daily and is tolerating it well. There has been no significant medical changes since her last visit. She states that she is feeling okay. She states that she feels a sinus infection coming on. She noticed her right high becoming puffy which is a sign. She denies fevers and chills. No bleeding or abnormal bruising. She has a follow-up scheduled with nephrology in either June or July. She offers no new complaints today. No new issues, problems or concerns. Updated Visit, March 31, 2022: Andrei is 71 yo and returns in follow up for ITP currently controlled with fostamatinib. Seems to bruise more easily with blood draws. Labs are stable. Plts 119k, hgb 11.6 Tolerating Tavalisse without difficulty however, LFT will need to be monitored as they are slightlyincreased. Got back from [place] and saw her sisters and had a nice trip with her of 54 yrs. Updated Visit, February 11, 2022: Andrei Leo returns for scheduled follow-up. She remains on Tavalisse 100 mg twice daily and is tolerating it well. She denies any signs of bleeding or abnormal bruising. Also no signs of blood clots. She saw Dr. Gilson Troncoso today. She states that she was told she has protein in her urine. She will have her next follow-up with nephrology in 6 months. She is stil having issues with her sinuses and plans to follow-up with the health clinic. She has ongoing issues with dry mouth. Overall, she is doing fairly well. Updated Visit, December 17, 2021: Andrei Leo returns for scheduled follow-up. She remains on Tavalisse and is tolerating it well. She denies any signs of bleeding or abnormal bruising. No signs of blood clots. She had a consultation with nephrology, Dr. Gilson Sarah. Dr. Sarah increased her losartan to 50 mg daily. He also ordered a renal ultrasound. She has a follow up scheduled in February. She complains today of leg cramps. Overall, she is doing well. 11/20/2021 Ultrasound retroperitoneal complete Impression: 1. No evidence of echogenic calculi or hydronephrosis. 2. There are bilateral renal cysts. Measurements as described above. (Copy scanned) Updated Visit, October 28, 2021: No AE's Platelets responding nicely HTN improved on Losartan but is still due to see nephrology. She is tired and stressed awaiting her niece's news. (Niece is in hospice due to pancreatic cancer). She's doing well and wants to continue current regimen of therapy. Updated Visit, September 16, 2021: Andrei Leo returns for follow-up. She remains on Tavalisse 100 mg twice daily and is tolerating it well. There has been no significant medical changes since her last visit. She denies bleeding andabnormal bruising. She continues to have a cough but states the cough is under control. The cough mainly occurs at night but not every night. She offers no new complaints today. No new issues, problems or concerns. Updated Visit, August 05, 2021: Mrs. Leo returns today and platelets continue to respond. We changed her anti-HTNives and her cough resolved, but today she notes she has a dry cough that returned this past Monday. Doubt this is due to medications. Will continue monitoring her. Updated Visit, July 16, 2021: Andrei Leo returns for follow-up. She remains on Tavalisse 100 mg twice daily and is tolerating it well. She questions if the medication can cause her to lose her hair. She had been taking Tessalon Perles which helped with the cough. After stopping for 1 week her cough came back. She recently resumed the Tessalon Perles. She is complaining of chronic left leg pain and plans to make an appointment to see an orthopedic surgeon. She canceled her nephrology appointment because she did not understand why she was going to see a mounting inspector for her blood pressure. Patient also has other mild medical issues and plans to get reestablished with a PCP. Overall, she is doing fairly well. Updated Visit, June 25, 2021: Andrei is 70 yo and returns in follow up for ITP currently on Tavalisse and tolerating it and responding to it very well. Platelets have remained stable and above 50k since starting on it in mid May 2021. BP is stable. Updated Visit, June 11, 2021: Andrei Leo returns for follow-up. She remains on tab Tavalisse, and is tolerating it well. Aftershe takes the Tavalisse, she gets a mota headache . It goes away very quickly. She denies any signs of bleeding or abnormal bruising. She still has cough despite stopping the lisinopril. She denies fevers, chills, night sweats and signs/symptoms of infection. Her granddaughter developed Covid after Thanksgiving. The patient tested and she is negative. She is currently watching her great grandchildren. She denies any diarrhea. Updated Visit, May 27, 2021: Returns to see response to Tavalisse which appears to be working nicely. Abdominal cramps and into ribs. Possibly dehydrated BP is better but Cough from Lisinopril persists and is keeping her up. Updated Visit, May 13, 2021: Still has high blood pressure and has some concern that lisinopril is causing a cough but her coughis not consistent with lisinopril - she has a tickle in her throat and has post nasal drip that induces it. She will need to stay on her HCTZ which is only intermittent right now. Will increase her lisinopril. Has chronic edema in left left that has had a skin graft. plts are 23 k today. Sinusitis is better. Updated Visit, April 29, 2021: Andrei Doesn't feel well today. 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 Sinus are full and she doesn't feel great. Additionally her plateltes have dropped below 50k again and since she has failed prior therapy, will try her on fostamatininb. Isn't tolerating HCTZ. Will try Lisinopril. Updated Visit, February 24, 2021: Labs are stable but her fatigue is prominent. She is caring for her and grand kids. TSH wasnormal. Updated Visit, January 27, 2021: Andrei Leo returns for scheduled follow-up. There has been no significant medical changes since her last visit. She denies bleeding and abnormal bruising. She complains of low energy. She has occasional exertional shortness of breath. She has a cough at night and relates it to sinus drainage. Overall, doing fairly well. Updated Visit, December 18, 2020: Tired during the day but not sleepy. HTN is notable Fatigue likely associated with weight gain Platelets are down today, will see her in 4 Weeks, recheck BP and platelets - consider tavalisse atthat time. Intermittent nose bleeds ? HTN vs. ITP - platelet count is not particularly low to cause that. Updated Visit, September 17, 2020: Andrei is 69 yo and returns to review labs. She never got seen for her elevated BP. I again cautionedher and urged her to get evaluated. She smokes a little with coffee, No alcohol Light headedness is improved but blood pressure is elevated and needs her PCP to make recommendations. She is beyond 10 years from her last colonoscopy and will need to schedule screening again. Platelets are stable and shouldn't interfere with any procedures that she may need. Updated Visit, June 25, 2020: Andrei is a very nice 69-year-old woman returning with a history of chronic ITP. She has stable counts but still having intermittent lightheadedness although less frequently. She states her cough is improved but often has a dry mouth. Corrected the prior notes- she isn't using CPAP at all, but only has mild apnea on recent re-check.I still believe that using CPAP may be of benefit to her. I recommended that she see her primary care physician for lightheadedness and dizziness at her lastvisit but she never made it. Updated Visit, April 02, 2020: Andrei is 69-year-old woman with history of ITP treated with Rituxan through November 2019. On return today, her platelets have been stable and improved. Her CPAP improved her overall fatigue and she is more compliant with usage. However, she reports having had 2 dizzy spells fairly recently and says she will follow-up with her primary care physician to work this up if it persists. She is requested Tessalon Perles again for her chronic intermittent cough. She is otherwise doing very well. Updated Visit, January 02, 2020: Andrei is 69 yo and is doing well. Platelets are stable. She is asymptomatic. If she stops responding, we will switch to Tavalisse. Updated Visit, December 05, 2019: Andrei is 69 years old and returns having completed Rituxan for 4 weekly doses. Her platelet counts are stable. She has no sequelae of thrombocytopenia. Reviewing her CBC shows white blood cell count 3.26, platelet count 83,000, H/H is 11.2/36.7. She reports daytime fatigue and a history of snoring having had a marginal sleep study in the past,she is much heavier now on I suspect that this may be contributing to her findings of both leukopenia and thrombocytopenia. I've encouraged her to obtain a sleep study. Her review of systems is otherwise negative by full review of organ systems. Updated Visit, October 31, 2019: Blow nose with slight bleeding with sneeze otherwise is asymptomatic. However, I am worried that she will have a more traumatic bleed. She is willing to proceed. Updated Visit, October 21, 2019: She is not on anything currently for her ITP. She has misty having her blood checked every three weeks and last week her platelet count was 24,000. She did notice some mild bruising. No bleeding. She does have fatigue. No new medications or infections. She does occasionally have a cough but this is not new for her. . Updated Visit, September 25, 2019: Returns -results are still pending from bone marrow studies but I spoke with the pathologist reading the slides and he indicated no significant acute pathology. Platelets are stable but slowly dropping, no petechiae reported or noted on visualization. She is aware of risks for bleeding especially if platelets drop precipitously. Exam limited to gross visualization where appropriate due to COVID-19. Updated Visit, September 13, 2019: Returns to review CT abdomen wich is essentially unremarkable for etiology of pain. CXR show lower lobe infiltrates consistent with her know upper respiratory tract infection and cough. She will be undergoing bone marrow aspirate in order to see if her marrow is intact and if she is making adequate platelets. Radiographic Data: Reviewed on January 27 2021. 3. 12/31/2020 CT Chest IMPRESSION: 1. Multiple subcentimeter nodular opacities measuring up to 7 mm (30-40) stable since 12/19/2019. If clinically indicated, consider one-year follow-up. 2. No interval changesince 12/19/2019. 2. 12/31/2020 CT chest IMPRESSION: 1. Multiple subcentimeter nodular opacities measuring up to 7 mm (30-40) stable since 12/19/2019. If clinically indicated, consider one-year follow-up. 2. No interval change since 12/19/2019. 1. 09/04/2019: CT abd/Pelvis w/: No evidence of bowel obstruction or pericolic inflammatory change. The appendix is not visualized but no evidence of inflammatory change is noted in the right lower quadrant of the abdomen. Borderline aneurysmal enlargement of the infrarenal abdominal aorta measuringup to 3.0 cm diameter. Subcentimeter nodular opacities in the right lung base measuring up to 4-5 mm. Multiple bilateral renal cysts. Subcentimeter right adrenal myelolipoma. Pathologic Profile/ Molecular Data: Reviewed on September 25, 2019 1. 09/13/2019 Bone marrow sternal aspirate: Bone marrow aspirate, clot section and peripheral blood (A-B): - Non-diagnostic lymphoid aggregates, see comment. - Unremarkable maturing trilineage hematopoiesis. REVIEW OF SYSTEMS Per HPI and otherwise negative by full review of organ systems. ECOG PERFORMANCE STATUS: 0 PHYSICAL EXAMINATION: Vitals: BP 184/90 Pulse 76 Temp (Src) 97.8 (Temporal) Resp 18 Ht 5' 2.52 (1.59m) Wt 194 lb 9.6 oz (88.3kg) SpO2 98% BMI 35.00 kg/(m^2). Body surface area is 1.97 meters squared. Exam limited to gross visualization where appropriate due to COVID-19. Gen.: This is an age-appropriate patient in no acute distress. Head: Appears atraumatic with no visible lesions. Eyes: Pupils equally round and reactive to light, extraocular muscles are intact. Neck: Supple. Mouth: Masked. Respiratory: Appears to be respiring comfortably. Neurologic: Nonfocal to gross visualization. Alert and oriented 3. Psychiatric: No evidence of inappropriate anxiety or depression. Skin: Visible areas of skin without rash, lesions, wounds or petechiae. ALLERGIES: ALLERGIES Allergen Reactions Tetnus [Tetanus Vac* Unknown Vancomycin Unknown Burning sensation MEDICATIONS: pilocarpine (SALAGEN) 5 mg tablet TAKE 1 TABLET BY MOUTH THREE TIMES A DAY losartan (COZAAR) 25 mg tablet TAKE 2 TABLETS BY MOUTH EVERY DAY fostamatinib (TAVALISSE) 100 mg tablet Take 1 tablet by mouth twice daily. benzonatate (TESSALON PERLE) 100 mg capsule Take 1 capsule by mouth every 6 hours as needed for cough. hydroCHLOROthiazide (HYDRODIURIL, ESIDRIX) 25 mg tablet TAKE 1 TABLET BY MOUTH EVERY DAY cholecalciferol, vitamin D3, (VITAMIN D3 ORAL) Take by mouth. LABORATORY VALUES: Hemoglobin (g/dL) Date Value 05/12/2022 10.4 08/05/2021 11.2 Hematocrit (%) Date Value 05/12/2022 32.7 08/05/2021 36.4 WBC (k/uL) Date Value 05/12/2022 4.70 08/05/2021 5.36 Platelet Count (k/uL) Date Value 05/12/2022 103 08/05/2021 93 DIAGNOSIS: (D69.3) Chronic ITP (idiopathic thrombocytopenia) (HCC) (primary encounter diagnosis) (G47.33) Obstructive sleep apnea syndrome (I10) Essential hypertension PAST MEDICAL HISTORY Diagnosis Date Lupus (HCC) Thrombocytopenia (HCC) PAST SURGICAL HISTORY Procedure Laterality Date HYSTERECTOMY HX Social History Tobacco Use Smoking status: Light Smoker Types: Cigarettes Smokeless tobacco: Never Vaping Use Vaping Use: Never used Substance Use Topics Alcohol use: No Drug use: No No family history on file. Jayden Connelly APRN.CNP Hematology and Oncology Services Provided at: [place], [place] CC: Dr. Chadd Deluna I spent a total of 30 minutes on the date of the service which included preparing to see the patient, [id number] patient care, completing clinical documentation, obtaining and/or reviewing separately obtained history, performing a medically appropriate examination, counseling and educating the pat ient/family/caregiver, ordering medications, tests, or procedures, independently interpreting results (not separately reported), and communicating results to the patient/family/caregiver. documented in this encounterTrinity [facility]09-22-[facility]22 Instructions* Patient Instructions* Rinku Ramsey MD - 03/31/2022 2:50 PM EDT 1. Continue Tavalisse. 2. Losartan was increased by nephrology. Taking Losartan 50 mg daily. 3. Contnue HCTZ. 4. Follow up in 6 weeks with labs. documented in this encounterTr[facility]09-22-2022 History of Present illness Narrative* Rinku Ramsey MD - 03/31/2022 2:43 PM EDT Images from the original note were not included. NAME: Andrei Leo CLINIC NO.: [id number] DATE OF SERVICE: March 31, 2022 Some elements in this clinic note that are critical to medical decision making have been carefully reviewed and included from a prior clinic note dated: February 11, 2022 ([place]) Additional Clinicians involved in Andrei Leo's care: Dr. Shay, Dr. Deluna CC: Chronic ITP ASSESSMENT/PLAN: 1. Thrombocytopenia (HCC) - ICD9: 287.5, ICD10: D69.6 (primary diagnosis) She has chronic ITP. She has repsonded to Rituxan in the past, most recently she was on Plaquenil (with a history of Lupus) and did not respond to this. Bone marrow biopsy September 13, 2019 showed unremarkable maturing trilineage hematopoiesis. Completed 4 weekly doses of Rituxan 11/2019 and platelet counts improved but still low. 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 - Continues to respond to Tavalisse started 05/2021. 2. Pulmonary nodules - ICD9: 793.19, ICD10: R91.8 : 12/31/2020 CT Chest stable. No new findings. 3. Lupus (HCC) - ICD9: 710.0, ICD10: M32.9: She is asymptomatic from Lupus of the skin. 4. 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 5. HTN - continue Losartan plus HCTZ and continue managing HTN. Improved control even on Tavalisse. PLAN: 1. Continue Tavalisse. 2. Losartan was increased by nephrology. Taking Losartan 50 mg daily. 3. Contnue HCTZ. 4. Follow up in 6 weeks with labs. Treatment to Date: . 05/14/2021 - Current: Tavalisse 4. 10/31/2019 - 11/21/2019: Weekly Rituxan x 4 3. 04/11/2019 Plaquenil which she stopped 2. January 2019 Prednisone 1. 2017 Rituxan X 4 HPI: Updated Visit, March 31, 2022: Andrei is 71 yo and returns in follow up for ITP currently controlled with fostamatinib. Seems to bruise more easily with blood draws. Labs are stable. Plts 119k, hgb 11.6 Tolerating Tavalisse without difficulty however, LFT will need to be monitored as they are slightlyincreased. Got back from [place] and saw her sisters and had a nice trip with her of 54 yrs. Updated Visit, February 11, 2022: Andrei Leo returns for scheduled follow-up. She remains on Tavalisse 100 mg twice daily and is tolerating it well. She denies any signs of bleeding or abnormal bruising. Also no signs of blood clots. She saw Dr. Gilson Troncoso today. She states that she was told she has protein in her urine. She will have her next follow-up with nephrology in 6 months. She is stil having issues with her sinuses and plans to follow-up with the health clinic. She has ongoing issues with dry mouth. Overall, she is doing fairly well. Updated Visit, December 17, 2021: Andrei Leo returns for scheduled follow-up. She remains on Tavalisse and is tolerating it well. She denies any signs of bleeding or abnormal bruising. No signs of blood clots. She had a consultation with nephrology, Dr. Gilson Sarah. Dr. Sarah increased her losartan to 50 mg daily. He also ordered a renal ultrasound. She has a follow up scheduled in February. She complains today of leg cramps. Overall, she is doing well. 11/20/2021 Ultrasound retroperitoneal complete Impression: 1. No evidence of echogenic calculi or hydronephrosis. 2. There are bilateral renal cysts. Measurements as described above. (Copy scanned) Updated Visit, October 28, 2021: No AE's Platelets responding nicely HTN improved on Losartan but is still due to see nephrology. She is tired and stressed awaiting her niece's news. (Niece is in hospice due to pancreatic cancer). She's doing well and wants to continue current regimen of therapy. Updated Visit, September 16, 2021: Andrei Leo returns for follow-up. She remains on Tavalisse 100 mg twice daily and is tolerating it well. There has been no significant medical changes since her last visit. She denies bleeding andabnormal bruising. She continues to have a cough but states the cough is under control. The cough mainly occurs at night but not every night. She offers no new complaints today. No new issues, problems or concerns. Updated Visit, August 05, 2021: Mrs. Leo returns today and platelets continue to respond. We changed her anti-HTNives and her cough resolved, but today she notes she has a dry cough that returned this past Monday. Doubt this is due to medications. Will continue monitoring her. Updated Visit, July 16, 2021: Andrei Leo returns for follow-up. She remains on Tavalisse 100 mg twice daily and is tolerating it well. She questions if the medication can cause her to lose her hair. She had been taking Tessalon Perles which helped with the cough. After stopping for 1 week her cough came back. She recently resumed the Tessalon Perles. She is complaining of chronic left leg pain and plans to make an appointment to see an orthopedic surgeon. She canceled her nephrology appointment because she did not understand why she was going to see a mounting inspector for her blood pressure. Patient also has other mild medical issues and plans to get reestablished with a PCP. Overall, she is doing fairly well. Updated Visit, June 25, 2021: Andrei is 70 yo and returns in follow up for ITP currently on Tavalisse and tolerating it and responding to it very well. Platelets have remained stable and above 50k since starting on it in mid May 2021. BP is stable. Updated Visit, June 11, 2021: Andrei Leo returns for follow-up. She remains on tab Tavalisse, and is tolerating it well. Aftershe takes the Tavalisse, she gets a mota headache . It goes away very quickly. She denies any signs of bleeding or abnormal bruising. She still has cough despite stopping the lisinopril. She denies fevers, chills, night sweats and signs/symptoms of infection. Her granddaughter developed Covid after Thanksgiving. The patient tested and she is negative. She is currently watching her great grandchildren. She denies any diarrhea. Updated Visit, May 27, 2021: Returns to see response to Tavalisse which appears to be working nicely. Abdominal cramps and into ribs. Possibly dehydrated BP is better but Cough from Lisinopril persists and is keeping her up. Updated Visit, May 13, 2021: Still has high blood pressure and has some concern that lisinopril is causing a cough but her coughis not consistent with lisinopril - she has a tickle in her throat and has post nasal drip that induces it. She will need to stay on her HCTZ which is only intermittent right now. Will increase her lisinopril. Has chronic edema in left left that has had a skin graft. plts are 23 k today. Sinusitis is better. Updated Visit, April 29, 2021: Andrei Doesn't feel well today. 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 Sinus are full and she doesn't feel great. Additionally her plateltes have dropped below 50k again and since she has failed prior therapy, will try her on fostamatininb. Isn't tolerating HCTZ. Will try Lisinopril. Updated Visit, February 24, 2021: Labs are stable but her fatigue is prominent. She is caring for her and grand kids. TSH wasnormal. Updated Visit, January 27, 2021: Andrei Leo returns for scheduled follow-up. There has been no significant medical changes since her last visit. She denies bleeding and abnormal bruising. She complains of low energy. She has occasional exertional shortness of breath. She has a cough at night and relates it to sinus drainage. Overall, doing fairly well. Updated Visit, December 18, 2020: Tired during the day but not sleepy. HTN is notable Fatigue likely associated with weight gain Platelets are down today, will see her in 4 Weeks, recheck BP and platelets - consider tavalisse atthat time. Intermittent nose bleeds ? HTN vs. ITP - platelet count is not particularly low to cause that. Updated Visit, September 17, 2020: Andrei is 69 yo and returns to review labs. She never got seen for her elevated BP. I again cautionedher and urged her to get evaluated. She smokes a little with coffee, No alcohol Light headedness is improved but blood pressure is elevated and needs her PCP to make recommendations. She is beyond 10 years from her last colonoscopy and will need to schedule screening again. Platelets are stable and shouldn't interfere with any procedures that she may need. Updated Visit, June 25, 2020: Andrei is a very nice 69-year-old woman returning with a history of chronic ITP. She has stable counts but still having intermittent lightheadedness although less frequently. She states her cough is improved but often has a dry mouth. Corrected the prior notes- she isn't using CPAP at all, but only has mild apnea on recent re-check.I still believe that using CPAP may be of benefit to her. I recommended that she see her primary care physician for lightheadedness and dizziness at her lastvisit but she never made it. Updated Visit, April 02, 2020: Andrei is 69-year-old woman with history of ITP treated with Rituxan through November 2019. On return today, her platelets have been stable and improved. Her CPAP improved her overall fatigue and she is more compliant with usage. However, she reports having had 2 dizzy spells fairly recently and says she will follow-up with her primary care physician to work this up if it persists. She is requested Tessalon Perles again for her chronic intermittent cough. She is otherwise doing very well. Updated Visit, January 02, 2020: Andrei is 69 yo and is doing well. Platelets are stable. She is asymptomatic. If she stops responding, we will switch to Tavalisse. Updated Visit, December 05, 2019: Andrei is 69 years old and returns having completed Rituxan for 4 weekly doses. Her platelet counts are stable. She has no sequelae of thrombocytopenia. Reviewing her CBC shows white blood cell count 3.26, platelet count 83,000, H/H is 11.2/36.7. She reports daytime fatigue and a history of snoring having had a marginal sleep study in the past,she is much heavier now on I suspect that this may be contributing to her findings of both leukopenia and thrombocytopenia. I've encouraged her to obtain a sleep study. Her review of systems is otherwise negative by full review of organ systems. Updated Visit, October 31, 2019: Blow nose with slight bleeding with sneeze otherwise is asymptomatic. However, I am worried that she will have a more traumatic bleed. She is willing to proceed. Updated Visit, October 21, 2019: She is not on anything currently for her ITP. She has misty having her blood checked every three weeks and last week her platelet count was 24,000. She did notice some mild bruising. No bleeding. She does have fatigue. No new medications or infections. She does occasionally have a cough but this is not new for her. . Updated Visit, September 25, 2019: Returns -results are still pending from bone marrow studies but I spoke with the pathologist reading the slides and he indicated no significant acute pathology. Platelets are stable but slowly dropping, no petechiae reported or noted on visualization. She is aware of risks for bleeding especially if platelets drop precipitously. Exam limited to gross visualization where appropriate due to COVID-19. Updated Visit, September 13, 2019: Returns to review CT abdomen wich is essentially unremarkable for etiology of pain. CXR show lower lobe infiltrates consistent with her know upper respiratory tract infection and cough. She will be undergoing bone marrow aspirate in order to see if her marrow is intact and if she is making adequate platelets. Radiographic Data: Reviewed on January 27 2021. 3. 12/31/2020 CT Chest IMPRESSION: 1. Multiple subcentimeter nodular opacities measuring up to 7 mm (30-40) stable since 12/19/2019. If clinically indicated, consider one-year follow-up. 2. No interval changesince 12/19/2019. 2. 12/31/2020 CT chest IMPRESSION: 1. Multiple subcentimeter nodular opacities measuring up to 7 mm (30-40) stable since 12/19/2019. If clinically indicated, consider one-year follow-up. 2. No interval change since 12/19/2019. 1. 09/04/2019: CT abd/Pelvis w/: No evidence of bowel obstruction or pericolic inflammatory change. The appendix is not visualized but no evidence of inflammatory change is noted in the right lower quadrant of the abdomen. Borderline aneurysmal enlargement of the infrarenal abdominal aorta measuringup to 3.0 cm diameter. Subcentimeter nodular opacities in the right lung base measuring up to 4-5 mm. Multiple bilateral renal cysts. Subcentimeter right adrenal myelolipoma. Pathologic Profile/ Molecular Data: Reviewed on September 25, 2019 1. 09/13/2019 Bone marrow sternal aspirate: Bone marrow aspirate, clot section and peripheral blood (A-B): - Non-diagnostic lymphoid aggregates, see comment. - Unremarkable maturing trilineage hematopoiesis. REVIEW OF SYSTEMS Per HPI and otherwise negative by full review of organ systems. ECOG PERFORMANCE STATUS: 0 PHYSICAL EXAMINATION: Vitals: BP 173/83 Pulse 66 Temp (Src) 97.7 (Temporal) Resp 16 Ht 5' 2.52 (1.59m) Wt 195 lb 9.6 oz (88.7kg) SpO2 95% BMI 35.18 kg/(m^2). Body surface area is 1.98 meters squared. Exam limited to gross visualization where appropriate due to COVID-19. Gen.: This is an age-appropriate patient in no acute distress. Head: Appears atraumatic with no visible lesions. Eyes: Pupils equally round and reactive to light, extraocular muscles are intact. Neck: Supple. Mouth: Masked. Respiratory: Appears to be respiring comfortably. Neurologic: Nonfocal to gross visualization. Alert and oriented 3. Psychiatric: No evidence of inappropriate anxiety or depression. Skin: Visible areas of skin without rash, lesions, wounds or petechiae. ALLERGIES: ALLERGIES Allergen Reactions Tetnus [Tetanus Vac* Unknown Vancomycin Unknown Burning sensation MEDICATIONS: losartan (COZAAR) 25 mg tablet TAKE 2 TABLETS BY MOUTH EVERY DAY pilocarpine (SALAGEN) 5 mg tablet TAKE 1 TABLET BY MOUTH THREE TIMES A DAY benzonatate (TESSALON PERLE) 100 mg capsule Take 1 capsule by mouth every 6 hours as needed for cough. hydroCHLOROthiazide (HYDRODIURIL, ESIDRIX) 25 mg tablet TAKE 1 TABLET BY MOUTH EVERY DAY fostamatinib (TAVALISSE) 100 mg tablet Take 100 mg by mouth twice daily. cholecalciferol, vitamin D3, (VITAMIN D3 ORAL) Take by mouth. LABORATORY VALUES: Hemoglobin (g/dL) Date Value 03/31/2022 11.6 08/05/2021 11.2 Hematocrit (%) Date Value 03/31/2022 36.4 08/05/2021 36.4 WBC (k/uL) Date Value 03/31/2022 6.39 08/05/2021 5.36 Platelet Count (k/uL) Date Value 03/31/2022 119 08/05/2021 93 DIAGNOSIS: (D69.3) Chronic ITP (idiopathic thrombocytopenia) (HCC) (primary encounter diagnosis) Plan: CBC + DIFF, COMP METABOLIC PANEL (G47.33) Obstructive sleep apnea syndrome Plan: CBC + DIFF, COMP METABOLIC PANEL PAST MEDICAL HISTORY Diagnosis Date Lupus (HCC) Thrombocytopenia (HCC) PAST SURGICAL HISTORY Procedure Laterality Date HYSTERECTOMY HX Social History Tobacco Use Smoking status: Light Smoker Types: Cigarettes Smokeless tobacco: Never Vaping Use Vaping Use: Never used Substance Use Topics Alcohol use: No Drug use: No No family history on file. I spent a total of 25 minutes on the date of the service which included preparing to see the patient, [id number] patient care, completing clinical documentation, performing a medically appropriate examination, ordering medications, tests, or procedures, and independently interpreting results (not separately reported). Rinku Ramsey MD, CPE [facility] Provided at: [place], [place] CC: Chadd Lange documented in this encounterTr[facility]08-29-2022 Miscellaneous Notes* Telephone Encounter - Jayden Connelly APRN.CNP - 03/07/2022 12:22 PM EDT The following approved medication requests have been transmitted electronically. Requested Prescriptions Signed Prescriptions Disp Refills pilocarpine (SALAGEN) 5 mg tablet 90 tablet 0 Sig: TAKE 1 TABLET BY MOUTH THREE TIMES A DAY Authorizing Provider: JAYDEN CONNELLY APRN.CNP documented in this encounterTr[facility]08-29-2022 Miscellaneous Notes* Telephone Encounter - Jayden Connelly APRN.CNP - 03/07/2022 11:21 AM EDT The following approved medication requests have been transmitted electronically. Requested Prescriptions Signed Prescriptions Disp Refills losartan (COZAAR) 25 mg tablet 60 tablet 1 Sig: TAKE 2 TABLETS BY MOUTH EVERY DAY Authorizing Provider: JAYDEN CONNELLY APRN.CNP documented in this encounterTr[facility]08-05-2022 History of Present illness Narrative* Jayden Connelly APRN.CNP - 02/11/2022 1:21 PM EDT Images from the original note were not included. NAME: Andrei Leo CLINIC NO.: [id number] DATE OF SERVICE: February 11, 2022 Some elements in this clinic note that are critical to medical decision making have been carefully reviewed and included from a prior clinic note dated: December 17, 2021. Additional Clinicians involved in Andrei Leo's care: Dr. Shay, Dr. Deluna CC: Chronic ITP ASSESSMENT/PLAN: 1. Thrombocytopenia (HCC) - ICD9: 287.5, ICD10: D69.6 (primary diagnosis) She has chronic ITP. She has repsonded to Rituxan in the past, most recently she was on Plaquenil (with a history of Lupus) and did not respond to this. Bone marrow biopsy September 13, 2019 showed unremarkable maturing trilineage hematopoiesis. Completed 4 weekly doses of Rituxan 11/2019 and platelet counts improved but still low. 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 - Continues to respond to Tavalisse started 05/2021. 2. Pulmonary nodules - ICD9: 793.19, ICD10: R91.8 : 12/31/2020 CT Chest stable. No new findings. 3. Lupus (HCC) - ICD9: 710.0, ICD10: M32.9: She is asymptomatic from Lupus of the skin. 4. 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 5. HTN - continue Losartan plus HCTZ and continue managing HTN. Improved control even on Tavalisse. PLAN: 1. Continue Tavalisse. 2. Losartan was increased by nephrology. Taking Losartan 50 mg daily. 3. Contnue HCTZ. 4. Follow up in 6 weeks with labs. 5. Patient has requested a refill on Tessalon Perles and pilocarpine. Treatment to Date: 5. 05/14/2021 - Current: Tavalisse 4. 10/31/2019 - 11/21/2019: Weekly Rituxan x 4 3. 04/11/2019 Plaquenil which she stopped 2. January 2019 Prednisone 1. 2017 Rituxan X 4 HPI: Updated Visit, February 11, 2022: Andrei Leo returns for scheduled follow-up. She remains on Tavalisse 100 mg twice daily and is tolerating it well. She denies any signs of bleeding or abnormal bruising. Also no signs of blood clots. She saw Dr. Gilson Troncoso today. She states that she was told she has protein in her urine. She will have her next follow-up with nephrology in 6 months. She is stil having issues with her sinuses and plans to follow-up with the health clinic. She has ongoing issues with dry mouth. Overall, she is doing fairly well. Updated Visit, December 17, 2021: Andrei Leo returns for scheduled follow-up. She remains on Tavalisse and is tolerating it well. She denies any signs of bleeding or abnormal bruising. No signs of blood clots. She had a consultation with nephrology, Dr. Gilson Sarah. Dr. Sarah increased her losartan to 50 mg daily. He also ordered a renal ultrasound. She has a follow up scheduled in February. She complains today of leg cramps. Overall, she is doing well. 11/20/2021 Ultrasound retroperitoneal complete Impression: 1. No evidence of echogenic calculi or hydronephrosis. 2. There are bilateral renal cysts. Measurements as described above. (Copy scanned) Updated Visit, October 28, 2021: No AE's Platelets responding nicely HTN improved on Losartan but is still due to see nephrology. She is tired and stressed awaiting her niece's news. (Niece is in hospice due to pancreatic cancer). She's doing well and wants to continue current regimen of therapy. Updated Visit, September 16, 2021: Andrei Leo returns for follow-up. She remains on Tavalisse 100 mg twice daily and is tolerating it well. There has been no significant medical changes since her last visit. She denies bleeding andabnormal bruising. She continues to have a cough but states the cough is under control. The cough mainly occurs at night but not every night. She offers no new complaints today. No new issues, problems or concerns. Updated Visit, August 05, 2021: Mrs. Leo returns today and platelets continue to respond. We changed her anti-HTNives and her cough resolved, but today she notes she has a dry cough that returned this past Monday. Doubt this is due to medications. Will continue monitoring her. Updated Visit, July 16, 2021: Andrei Leo returns for follow-up. She remains on Tavalisse 100 mg twice daily and is tolerating it well. She questions if the medication can cause her to lose her hair. She had been taking Tessalon Perles which helped with the cough. After stopping for 1 week her cough came back. She recently resumed the Tessalon Perles. She is complaining of chronic left leg pain and plans to make an appointment to see an orthopedic surgeon. She canceled her nephrology appointment because she did not understand why she was going to see a mounting inspector for her blood pressure. Patient also has other mild medical issues and plans to get reestablished with a PCP. Overall, she is doing fairly well. Updated Visit, June 25, 2021: Andrei is 70 yo and returns in follow up for ITP currently on Tavalisse and tolerating it and responding to it very well. Platelets have remained stable and above 50k since starting on it in mid May 2021. BP is stable. Updated Visit, June 11, 2021: Andrei Leo returns for follow-up. She remains on tab Tavalisse, and is tolerating it well. Aftershe takes the Tavalisse, she gets a mota headache . It goes away very quickly. She denies any signs of bleeding or abnormal bruising. She still has cough despite stopping the lisinopril. She denies fevers, chills, night sweats and signs/symptoms of infection. Her granddaughter developed Covid after Thanksgiving. The patient tested and she is negative. She is currently watching her great grandchildren. She denies any diarrhea. Updated Visit, May 27, 2021: Returns to see response to Tavalisse which appears to be working nicely. Abdominal cramps and into ribs. Possibly dehydrated BP is better but Cough from Lisinopril persists and is keeping her up. Updated Visit, May 13, 2021: Still has high blood pressure and has some concern that lisinopril is causing a cough but her coughis not consistent with lisinopril - she has a tickle in her throat and has post nasal drip that induces it. She will need to stay on her HCTZ which is only intermittent right now. Will increase her lisinopril. Has chronic edema in left left that has had a skin graft. plts are 23 k today. Sinusitis is better. Updated Visit, April 29, 2021: Andrei Doesn't feel well today. 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 Sinus are full and she doesn't feel great. Additionally her plateltes have dropped below 50k again and since she has failed prior therapy, will try her on fostamatininb. Isn't tolerating HCTZ. Will try Lisinopril. Updated Visit, February 24, 2021: Labs are stable but her fatigue is prominent. She is caring for her and grand kids. TSH wasnormal. Updated Visit, January 27, 2021: Andrei Leo returns for scheduled follow-up. There has been no significant medical changes since her last visit. She denies bleeding and abnormal bruising. She complains of low energy. She has occasional exertional shortness of breath. She has a cough at night and relates it to sinus drainage. Overall, doing fairly well. Updated Visit, December 18, 2020: Tired during the day but not sleepy. HTN is notable Fatigue likely associated with weight gain Platelets are down today, will see her in 4 Weeks, recheck BP and platelets - consider tavalisse atthat time. Intermittent nose bleeds ? HTN vs. ITP - platelet count is not particularly low to cause that. Updated Visit, September 17, 2020: Andrei is 69 yo and returns to review labs. She never got seen for her elevated BP. I again cautionedher and urged her to get evaluated. She smokes a little with coffee, No alcohol Light headedness is improved but blood pressure is elevated and needs her PCP to make recommendations. She is beyond 10 years from her last colonoscopy and will need to schedule screening again. Platelets are stable and shouldn't interfere with any procedures that she may need. Updated Visit, June 25, 2020: Andrei is a very nice 69-year-old woman returning with a history of chronic ITP. She has stable counts but still having intermittent lightheadedness although less frequently. She states her cough is improved but often has a dry mouth. Corrected the prior notes- she isn't using CPAP at all, but only has mild apnea on recent re-check.I still believe that using CPAP may be of benefit to her. I recommended that she see her primary care physician for lightheadedness and dizziness at her lastvisit but she never made it. Updated Visit, April 02, 2020: Andrei is 69-year-old woman with history of ITP treated with Rituxan through November 2019. On return today, her platelets have been stable and improved. Her CPAP improved her overall fatigue and she is more compliant with usage. However, she reports having had 2 dizzy spells fairly recently and says she will follow-up with her primary care physician to work this up if it persists. She is requested Tessalon Perles again for her chronic intermittent cough. She is otherwise doing very well. Updated Visit, January 02, 2020: Andrei is 69 yo and is doing well. Platelets are stable. She is asymptomatic. If she stops responding, we will switch to Tavalisse. Updated Visit, December 05, 2019: Andrei is 69 years old and returns having completed Rituxan for 4 weekly doses. Her platelet counts are stable. She has no sequelae of thrombocytopenia. Reviewing her CBC shows white blood cell count 3.26, platelet count 83,000, H/H is 11.2/36.7. She reports daytime fatigue and a history of snoring having had a marginal sleep study in the past,she is much heavier now on I suspect that this may be contributing to her findings of both leukopenia and thrombocytopenia. I've encouraged her to obtain a sleep study. Her review of systems is otherwise negative by full review of organ systems. Updated Visit, October 31, 2019: Blow nose with slight bleeding with sneeze otherwise is asymptomatic. However, I am worried that she will have a more traumatic bleed. She is willing to proceed. Updated Visit, October 21, 2019: She is not on anything currently for her ITP. She has misty having her blood checked every three weeks and last week her platelet count was 24,000. She did notice some mild bruising. No bleeding. She does have fatigue. No new medications or infections. She does occasionally have a cough but this is not new for her. . Updated Visit, September 25, 2019: Returns -results are still pending from bone marrow studies but I spoke with the pathologist reading the slides and he indicated no significant acute pathology. Platelets are stable but slowly dropping, no petechiae reported or noted on visualization. She is aware of risks for bleeding especially if platelets drop precipitously. Exam limited to gross visualization where appropriate due to COVID-19. Updated Visit, September 13, 2019: Returns to review CT abdomen wich is essentially unremarkable for etiology of pain. CXR show lower lobe infiltrates consistent with her know upper respiratory tract infection and cough. She will be undergoing bone marrow aspirate in order to see if her marrow is intact and if she is making adequate platelets. Radiographic Data: Reviewed on January 27 2021. 3. 12/31/2020 CT Chest IMPRESSION: 1. Multiple subcentimeter nodular opacities measuring up to 7 mm (30-40) stable since 12/19/2019. If clinically indicated, consider one-year follow-up. 2. No interval changesince 12/19/2019. 2. 12/31/2020 CT chest IMPRESSION: 1. Multiple subcentimeter nodular opacities measuring up to 7 mm (30-40) stable since 12/19/2019. If clinically indicated, consider one-year follow-up. 2. No interval change since 12/19/2019. 1. 09/04/2019: CT abd/Pelvis w/: No evidence of bowel obstruction or pericolic inflammatory change. The appendix is not visualized but no evidence of inflammatory change is noted in the right lower quadrant of the abdomen. Borderline aneurysmal enlargement of the infrarenal abdominal aorta measuringup to 3.0 cm diameter. Subcentimeter nodular opacities in the right lung base measuring up to 4-5 mm. Multiple bilateral renal cysts. Subcentimeter right adrenal myelolipoma. Pathologic Profile/ Molecular Data: Reviewed on September 25, 2019 1. 09/13/2019 Bone marrow sternal aspirate: Bone marrow aspirate, clot section and peripheral blood (A-B): - Non-diagnostic lymphoid aggregates, see comment. - Unremarkable maturing trilineage hematopoiesis. REVIEW OF SYSTEMS Per HPI and otherwise negative by full review of organ systems. ECOG PERFORMANCE STATUS: 0 PHYSICAL EXAMINATION: Vitals: BP 159/83 Pulse 79 Temp (Src) 97.3 (Temporal) Resp 16 Ht 5' 2.52 (1.59m) Wt 196 lb 9.6 oz (89.2kg) SpO2 99% BMI 35.36 kg/(m^2). Body surface area is 1.98 meters squared. Exam limited to gross visualization where appropriate due to COVID-19. Gen.: This is an age-appropriate patient in no acute distress. Head: Appears atraumatic with no visible lesions. Eyes: Pupils equally round and reactive to light, extraocular muscles are intact. Neck: Supple. Mouth: Masked. Respiratory: Appears to be respiring comfortably. Neurologic: Nonfocal to gross visualization. Alert and oriented 3. Psychiatric: No evidence of inappropriate anxiety or depression. Skin: Visible areas of skin without rash, lesions, wounds or petechiae. ALLERGIES: ALLERGIES Allergen Reactions Tetnus [Tetanus Vac* Unknown Vancomycin Unknown Burning sensation MEDICATIONS: losartan (COZAAR) 25 mg tablet TAKE 2 TABLETS BY MOUTH EVERY DAY hydroCHLOROthiazide (HYDRODIURIL, ESIDRIX) 25 mg tablet TAKE 1 TABLET BY MOUTH EVERY DAY benzonatate (TESSALON PERLE) 100 mg capsule Take 1 capsule by mouth every 6 hours as needed for cough. fostamatinib (TAVALISSE) 100 mg tablet Take 100 mg by mouth twice daily. cholecalciferol, vitamin D3, (VITAMIN D3 ORAL) Take by mouth. LABORATORY VALUES: Hemoglobin (g/dL) Date Value 02/11/2022 10.6 08/05/2021 11.2 Hematocrit (%) Date Value 02/11/2022 33.0 08/05/2021 36.4 WBC (k/uL) Date Value 02/11/2022 5.59 08/05/2021 5.36 Platelet Count (k/uL) Date Value 02/11/2022 112 08/05/2021 93 DIAGNOSIS: (D69.3) Chronic ITP (idiopathic thrombocytopenia) (HCC) (primary encounter diagnosis) (I10) Hypertension, unspecified type (I10) Essential hypertension (G47.33) Obstructive sleep apnea syndrome (R91.8) Lung nodules (M32.9) Systemic lupus erythematosus, unspecified SLE type, unspecified organ involvement status (HCC) PAST MEDICAL HISTORY Diagnosis Date Lupus (HCC) Thrombocytopenia (HCC) PAST SURGICAL HISTORY Procedure Laterality Date HYSTERECTOMY HX Social History Tobacco Use Smoking status: Light Tobacco Smoker Types: Cigarettes Smokeless tobacco: Never Used Vaping Use Vaping Use: Never used Substance Use Topics Alcohol use: No Drug use: No No family history on file. Jayden Connelly APRN.CNP Services Provided at: [place], [place] CC: Chadd Deluna [facility] Miscellaneous Notes* Telephone Encounter - Jayden Connelly APRN.CNP - 01/11/2022 4:13 PM EDT The following approved medication requests have been transmitted electronically. Signed Prescriptions Disp Refills losartan (COZAAR) 25 mg tablet 60 tablet 1 Sig: TAKE 2 TABLETS BY MOUTH EVERY DAY JOVON: No Authorizing Provider: JAYDEN CONNELLY APRN.CNP documented in this encounterTr[facility]06[facility] History of Present illness Narrative* Jayden Connelly APRN.CNP - 12/17/2021 3:13 PM EDT Images from the original note were not included. NAME: Andrei Leo [facility] NO.: [id number] DATE OF SERVICE: December 17, 2021 Some elements in this clinic note that are critical to medical decision making have been carefully reviewed and included from a prior clinic note dated: October 28, 2021. Additional Clinicians involved in Paulalicia Ruben Abe's care: Dr. Shay, Dr. Deluna CC: Chronic ITP ASSESSMENT/PLAN: 1. Thrombocytopenia (HCC) - ICD9: 287.5, ICD10: D69.6 (primary diagnosis) She has chronic ITP. She has repsonded to Rituxan in the past, most recently she was on Plaquenil (with a history of Lupus) and did not respond to this. Bone marrow biopsy September 13, 2019 showed unremarkable maturing trilineage hematopoiesis. Completed 4 weekly doses of Rituxan 11/2019 and platelet counts improved but still low. 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 - Continues to respond to Tavalisse started 05/2021. 2. Pulmonary nodules - ICD9: 793.19, ICD10: R91.8 : 12/31/2020 CT Chest stable. No new findings. 3. Lupus (HCC) - ICD9: 710.0, ICD10: M32.9: She is asymptomatic from Lupus of the skin. 4. 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 5. HTN - continue Losartan plus HCTZ and continue managing HTN. Improved control even on Tavalisse. PLAN: 1. Continue Tavalisse. 2. Losartan was increased by nephrology. Now taking Losartan 50 mg daily. 3. Contnue HCTZ. 4. Follow up in 6 weeks with labs. Treatment to Date: . 05/14/2021 - Current: Tavalisse 4. 10/31/2019 - 11/21/2019: Weekly Rituxan x 4 3. 04/11/2019 Plaquenil which she stopped 2. January 2019 Prednisone 1. 2017 Rituxan X 4 HPI: Andrei Leo returns for scheduled follow-up. She remains on Tavalisse and is tolerating it well. She denies any signs of bleeding or abnormal bruising. No signs of blood clots. She had a consultation with nephrology, Dr. Gilson Sarah. Dr. Sarah increased her losartan to 50 mg daily. He also ordered a renal ultrasound. She has a follow up scheduled in February. She complains today of leg cramps. Overall, she is doing well. 11/20/2021 Ultrasound retroperitoneal complete Impression: 1. No evidence of echogenic calculi or hydronephrosis. 2. There are bilateral renal cysts. Measurements as described above. (Copy scanned) Updated Visit, October 28, 2021: No AE's Platelets responding nicely HTN improved on Losartan but is still due to see nephrology. She is tired and stressed awaiting her niece's news. (Niece is in hospice due to pancreatic cancer). She's doing well and wants to continue current regimen of therapy. Updated Visit, September 16, 2021: Andrei Leo returns for follow-up. She remains on Tavalisse 100 mg twice daily and is tolerating it well. There has been no significant medical changes since her last visit. She denies bleeding andabnormal bruising. She continues to have a cough but states the cough is under control. The cough mainly occurs at night but not every night. She offers no new complaints today. No new issues, problems or concerns. Updated Visit, August 05, 2021: Mrs. Leo returns today and platelets continue to respond. We changed her anti-HTNives and her cough resolved, but today she notes she has a dry cough that returned this past Monday. Doubt this is due to medications. Will continue monitoring her. Updated Visit, July 16, 2021: Andrei Leo returns for follow-up. She remains on Tavalisse 100 mg twice daily and is tolerating it well. She questions if the medication can cause her to lose her hair. She had been taking Tessalon Perles which helped with the cough. After stopping for 1 week her cough came back. She recently resumed the Tessalon Perles. She is complaining of chronic left leg pain and plans to make an appointment to see an orthopedic surgeon. She canceled her nephrology appointment because she did not understand why she was going to see a mounting inspector for her blood pressure. Patient also has other mild medical issues and plans to get reestablished with a PCP. Overall, she is doing fairly well. Updated Visit, June 25, 2021: Andrei is 70 yo and returns in follow up for ITP currently on Tavalisse and tolerating it and responding to it very well. Platelets have remained stable and above 50k since starting on it in mid May 2021. BP is stable. Updated Visit, June 11, 2021: Andrei Leo returns for follow-up. She remains on tab Tavalisse, and is tolerating it well. Aftershe takes the Tavalisse, she gets a mota headache . It goes away very quickly. She denies any signs of bleeding or abnormal bruising. She still has cough despite stopping the lisinopril. She denies fevers, chills, night sweats and signs/symptoms of infection. Her granddaughter developed Covid after Thanksgiving. The patient tested and she is negative. She is currently watching her great grandchildren. She denies any diarrhea. Updated Visit, May 27, 2021: Returns to see response to Tavalisse which appears to be working nicely. Abdominal cramps and into ribs. Possibly dehydrated BP is better but Cough from Lisinopril persists and is keeping her up. Updated Visit, May 13, 2021: Still has high blood pressure and has some concern that lisinopril is causing a cough but her coughis not consistent with lisinopril - she has a tickle in her throat and has post nasal drip that induces it. She will need to stay on her HCTZ which is only intermittent right now. Will increase her lisinopril. Has chronic edema in left left that has had a skin graft. plts are 23 k today. Sinusitis is better. Updated Visit, April 29, 2021: Andrei Doesn't feel well today. 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 Sinus are full and she doesn't feel great. Additionally her plateltes have dropped below 50k again and since she has failed prior therapy, will try her on fostamatininb. Isn't tolerating HCTZ. Will try Lisinopril. Updated Visit, February 24, 2021: Labs are stable but her fatigue is prominent. She is caring for her and grand kids. TSH wasnormal. Updated Visit, January 27, 2021: Andrei Leo returns for scheduled follow-up. There has been no significant medical changes since her last visit. She denies bleeding and abnormal bruising. She complains of low energy. She has occasional exertional shortness of breath. She has a cough at night and relates it to sinus drainage. Overall, doing fairly well. Updated Visit, December 18, 2020: Tired during the day but not sleepy. HTN is notable Fatigue likely associated with weight gain Platelets are down today, will see her in 4 Weeks, recheck BP and platelets - consider tavalisse atthat time. Intermittent nose bleeds ? HTN vs. ITP - platelet count is not particularly low to cause that. Updated Visit, September 17, 2020: Andrei is 69 yo and returns to review labs. She never got seen for her elevated BP. I again cautionedher and urged her to get evaluated. She smokes a little with coffee, No alcohol Light headedness is improved but blood pressure is elevated and needs her PCP to make recommendations. She is beyond 10 years from her last colonoscopy and will need to schedule screening again. Platelets are stable and shouldn't interfere with any procedures that she may need. Updated Visit, June 25, 2020: Andrei is a very nice 69-year-old woman returning with a history of chronic ITP. She has stable counts but still having intermittent lightheadedness although less frequently. She states her cough is improved but often has a dry mouth. Corrected the prior notes- she isn't using CPAP at all, but only has mild apnea on recent re-check.I still believe that using CPAP may be of benefit to her. I recommended that she see her primary care physician for lightheadedness and dizziness at her lastvisit but she never made it. Updated Visit, April 02, 2020: Andrei is 69-year-old woman with history of ITP treated with Rituxan through November 2019. On return today, her platelets have been stable and improved. Her CPAP improved her overall fatigue and she is more compliant with usage. However, she reports having had 2 dizzy spells fairly recently and says she will follow-up with her primary care physician to work this up if it persists. She is requested Cade Das again for her chronic intermittent cough. She is otherwise doing very well. Updated Visit, January 02, 2020: Andrei is 69 yo and is doing well. Platelets are stable. She is asymptomatic. If she stops responding, we will switch to Tavalisse. Updated Visit, December 05, 2019: Andrei is 69 years old and returns having completed Rituxan for 4 weekly doses. Her platelet counts are stable. She has no sequelae of thrombocytopenia. Reviewing her CBC shows white blood cell count 3.26, platelet count 83,000, H/H is 11.2/36.7. She reports daytime fatigue and a history of snoring having had a marginal sleep study in the past,she is much heavier now on I suspect that this may be contributing to her findings of both leukopenia and thrombocytopenia. I've encouraged her to obtain a sleep study. Her review of systems is otherwise negative by full review of organ systems. Updated Visit, October 31, 2019: Blow nose with slight bleeding with sneeze otherwise is asymptomatic. However, I am worried that she will have a more traumatic bleed. She is willing to proceed. Updated Visit, October 21, 2019: She is not on anything currently for her ITP. She has misty having her blood checked every three weeks and last week her platelet count was 24,000. She did notice some mild bruising. No bleeding. She does have fatigue. No new medications or infections. She does occasionally have a cough but this is not new for her. . Updated Visit, September 25, 2019: Returns -results are still pending from bone marrow studies but I spoke with the pathologist reading the slides and he indicated no significant acute pathology. Platelets are stable but slowly dropping, no petechiae reported or noted on visualization. She is aware of risks for bleeding especially if platelets drop precipitously. Exam limited to gross visualization where appropriate due to COVID-19. Updated Visit, September 13, 2019: Returns to review CT abdomen wich is essentially unremarkable for etiology of pain. CXR show lower lobe infiltrates consistent with her know upper respiratory tract infection and cough. She will be undergoing bone marrow aspirate in order to see if her marrow is intact and if she is making adequate platelets. Radiographic Data: Reviewed on January 27 2021. 3. 12/31/2020 CT Chest IMPRESSION: 1. Multiple subcentimeter nodular opacities measuring up to 7 mm (30-40) stable since 12/19/2019. If clinically indicated, consider one-year follow-up. 2. No interval changesince 12/19/2019. 2. 12/31/2020 CT chest IMPRESSION: 1. Multiple subcentimeter nodular opacities measuring up to 7 mm (30-40) stable since 12/19/2019. If clinically indicated, consider one-year follow-up. 2. No interval change since 12/19/2019. 1. 09/04/2019: CT abd/Pelvis w/: No evidence of bowel obstruction or pericolic inflammatory change. The appendix is not visualized but no evidence of inflammatory change is noted in the right lower quadrant of the abdomen. Borderline aneurysmal enlargement of the infrarenal abdominal aorta measuringup to 3.0 cm diameter. Subcentimeter nodular opacities in the right lung base measuring up to 4-5 mm. Multiple bilateral renal cysts. Subcentimeter right adrenal myelolipoma. Pathologic Profile/ Molecular Data: Reviewed on September 25, 2019 1. 09/13/2019 Bone marrow sternal aspirate: Bone marrow aspirate, clot section and peripheral blood (A-B): - Non-diagnostic lymphoid aggregates, see comment. - Unremarkable maturing trilineage hematopoiesis. REVIEW OF SYSTEMS Per HPI and otherwise negative by full review of organ systems. ECOG PERFORMANCE STATUS: 0 PHYSICAL EXAMINATION: Vitals: BP 154/80 Pulse 75 Temp (Src) 97.3 (Temporal) Resp 16 Ht 5' 2.52 (1.59m) Wt 193 lb 3.2 oz (87.6kg) SpO2 96% BMI 34.75 kg/(m^2). Body surface area is 1.97 meters squared. Exam limited to gross visualization where appropriate due to COVID-19. Gen.: This is an age-appropriate patient in no acute distress. Head: Appears atraumatic with no visible lesions. Eyes: Pupils equally round and reactive to light, extraocular muscles are intact. Neck: Supple. Mouth: Masked. Respiratory: Appears to be respiring comfortably. Neurologic: Nonfocal to gross visualization. Alert and oriented 3. Psychiatric: No evidence of inappropriate anxiety or depression. Skin: Visible areas of skin without rash, lesions, wounds or petechiae. ALLERGIES: ALLERGIES Allergen Reactions Tetnus [Tetanus Vac* Unknown Vancomycin Unknown Burning sensation MEDICATIONS: hydroCHLOROthiazide (HYDRODIURIL, ESIDRIX) 25 mg tablet TAKE 1 TABLET BY MOUTH EVERY DAY losartan (COZAAR) 25 mg tablet TAKE 1 TABLET BY MOUTH EVERY DAY benzonatate (TESSALON PERLE) 100 mg capsule Take 1 capsule by mouth every 6 hours as needed for cough. fostamatinib (TAVALISSE) 100 mg tablet Take 100 mg by mouth twice daily. cholecalciferol, vitamin D3, (VITAMIN D3 ORAL) Take by mouth. LABORATORY VALUES: Hemoglobin (g/dL) Date Value 12/17/2021 11.1 08/05/2021 11.2 Hematocrit (%) Date Value 12/17/2021 35.2 08/05/2021 36.4 WBC (k/uL) Date Value 12/17/2021 5.76 08/05/2021 5.36 Platelet Count (k/uL) Date Value 12/17/2021 103 08/05/2021 93 DIAGNOSIS: (D69.3) Chronic ITP (idiopathic thrombocytopenia) (HCC) (primary encounter diagnosis) (I10) Hypertension, unspecified type (I10) Essential hypertension (G47.33) Obstructive sleep apnea syndrome (R91.8) Lung nodules (M32.9) Systemic lupus erythematosus, unspecified SLE type, unspecified organ involvement status (HCC) PAST MEDICAL HISTORY Diagnosis Date Lupus (HCC) Thrombocytopenia (HCC) PAST SURGICAL HISTORY Procedure Laterality Date HYSTERECTOMY HX Social History Tobacco Use Smoking status: Light Tobacco Smoker Types: Cigarettes Smokeless tobacco: Never Used Vaping Use Vaping Use: Never used Substance Use Topics Alcohol use: No Drug use: No No family history on file. Jayden Connelly APRN.STEPH Services Provided at: [place], [place] CC: Chadd Deluna Almost had a fall MRI kidney- [facility] documented [facility]Tr[facility] Evaluation note* Encounter Date Diagnosis Assessment Notes Treatment Notes Treatment Clinical Notes November, HTN (hypertension) (ICD-10 - I10) She likely has essential hypertension. There is a possibility of underlying sleep apnea. I have increased the dose of the losartan to 50 mg daily. I have ordered a renal ultrasound to evaluate the renal anatomy. I discussed with her the importance of good blood pressure control. November, Lupus (ICD-10 - M32.9) She denies any symptoms. I have advised her to follow-up with rheumatology if she develop symptoms. November, Chronic ITP (idiopathic thrombocytopenia) (ICD-10 - D69.3) Continue follow-up with hematology. November, ADALBERTO (obstructive sleep apnea) (ICD-10 - G47.33) She has a sleep apnea. There is a possibility her uncontrolled blood pressure may be due to the sleep apnea. I have advised her to follow with sleep specialist. [facility] Other 04-21-2022 History of Present illness Narrative* Rinku Ramsey MD - 10/28/2021 11:41 AM EDT Images from the original note were not included. NAME: Andrei Leo CLINIC NO.: [id number] DATE OF SERVICE: October 28, 2021 Some elements in this clinic note that are critical to medical decision making have been carefully reviewed and included from a prior clinic note dated: September 16, 2021 Additional Clinicians involved in Andrei Leo's care: Dr. Shay, Dr. Deluna CC: Chronic ITP ASSESSMENT/PLAN: 1. Thrombocytopenia (HCC) - ICD9: 287.5, ICD10: D69.6 (primary diagnosis) She has chronic ITP. She has repsonded to Rituxan in the past, most recently she was on Plaquenil (with a history of Lupus) and did not respond to this. Bone marrow biopsy September 13, 2019 showed unremarkable maturing trilineage hematopoiesis. Completed 4 weekly doses of Rituxan 11/2019 and platelet counts improved but still low. 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 - Continues to respond to Tavalisse started 05/2021. 2. Pulmonary nodules - ICD9: 793.19, ICD10: R91.8 : 12/31/2020 CT Chest stable. No new findings. 3. Lupus (HCC) - ICD9: 710.0, ICD10: M32.9: She is asymptomatic from Lupus of the skin. 4. 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 5. HTN - continue Losartan plus HCTZ and continue managing HTN. Improved control even on Tavalisse. PLAN: 1. Continue Tavalisse. 2. Continue Losartan - Scheduled with Nephrology in November 2021. 3. Contnue HCTZ. 4. Follow up in 6 weeks with labs Treatment to Date: 5. 05/14/2021 - Current: Tavalisse 4. 10/31/2019 - 11/21/2019: Weekly Rituxan x 4 3. 04/11/2019 Plaquenil which she stopped 2. January 2019 Prednisone 1. 2017 Rituxan X 4 HPI: Updated Visit, October 28, 2021: No AE's Platelets responding nicely HTN improved on Losartan but is still due to see nephrology. She is tired and stressed awaiting her niece's news. (Niece is in hospice due to pancreatic cancer). She's doing well and wants to continue current regimen of therapy. Updated Visit, September 16, 2021: Andrei Leo returns for follow-up. She remains on Tavalisse 100 mg twice daily and is tolerating it well. There has been no significant medical changes since her last visit. She denies bleeding andabnormal bruising. She continues to have a cough but states the cough is under control. The cough mainly occurs at night but not every night. She offers no new complaints today. No new issues, problems or concerns. Updated Visit, August 05, 2021: Mrs. Leo returns today and platelets continue to respond. We changed her anti-HTNives and her cough resolved, but today she notes she has a dry cough that returned this past Monday. Doubt this is due to medications. Will continue monitoring her. Updated Visit, July 16, 2021: Andrei Leo returns for follow-up. She remains on Tavalisse 100 mg twice daily and is tolerating it well. She questions if the medication can cause her to lose her hair. She had been taking Tessalon Perles which helped with the cough. After stopping for 1 week her cough came back. She recently resumed the Tessalon Perles. She is complaining of chronic left leg pain and plans to make an appointment to see an orthopedic surgeon. She canceled her nephrology appointment because she did not understand why she was going to see a mounting inspector for her blood pressure. Patient also has other mild medical issues and plans to get reestablished with a PCP. Overall, she is doing fairly well. Updated Visit, June 25, 2021: Andrei is 70 yo and returns in follow up for ITP currently on Tavalisse and tolerating it and responding to it very well. Platelets have remained stable and above 50k since starting on it in mid May 2021. BP is stable. Updated Visit, June 11, 2021: Andrei Leo returns for follow-up. She remains on tab Tavalisse, and is tolerating it well. Aftershe takes the Tavalisse, she gets a mota headache . It goes away very quickly. She denies any signs of bleeding or abnormal bruising. She still has cough despite stopping the lisinopril. She denies fevers, chills, night sweats and signs/symptoms of infection. Her granddaughter developed Covid after Thanksgiving. The patient tested and she is negative. She is currently watching her great grandchildren. She denies any diarrhea. Updated Visit, May 27, 2021: Returns to see response to Tavalisse which appears to be working nicely. Abdominal cramps and into ribs. Possibly dehydrated BP is better but Cough from Lisinopril persists and is keeping her up. Updated Visit, May 13, 2021: Still has high blood pressure and has some concern that lisinopril is causing a cough but her coughis not consistent with lisinopril - she has a tickle in her throat and has post nasal drip that induces it. She will need to stay on her HCTZ which is only intermittent right now. Will increase her lisinopril. Has chronic edema in left left that has had a skin graft. plts are 23 k today. Sinusitis is better. Updated Visit, April 29, 2021: Andrei Doesn't feel well today. 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 Sinus are full and she doesn't feel great. Additionally her plateltes have dropped below 50k again and since she has failed prior therapy, will try her on fostamatininb. Isn't tolerating HCTZ. Will try Lisinopril. Updated Visit, February 24, 2021: Labs are stable but her fatigue is prominent. She is caring for her and grand kids. TSH wasnormal. Updated Visit, January 27, 2021: Andrei Leo returns for scheduled follow-up. There has been no significant medical changes since her last visit. She denies bleeding and abnormal bruising. She complains of low energy. She has occasional exertional shortness of breath. She has a cough at night and relates it to sinus drainage. Overall, doing fairly well. Updated Visit, December 18, 2020: Tired during the day but not sleepy. HTN is notable Fatigue likely associated with weight gain Platelets are down today, will see her in 4 Weeks, recheck BP and platelets - consider tavalisse atthat time. Intermittent nose bleeds ? HTN vs. ITP - platelet count is not particularly low to cause that. Updated Visit, September 17, 2020: Andrei is 69 yo and returns to review labs. She never got seen for her elevated BP. I again cautionedher and urged her to get evaluated. She smokes a little with coffee, No alcohol Light headedness is improved but blood pressure is elevated and needs her PCP to make recommendations. She is beyond 10 years from her last colonoscopy and will need to schedule screening again. Platelets are stable and shouldn't interfere with any procedures that she may need. Updated Visit, June 25, 2020: Andrei is a very nice 69-year-old woman returning with a history of chronic ITP. She has stable counts but still having intermittent lightheadedness although less frequently. She states her cough is improved but often has a dry mouth. Corrected the prior notes- she isn't using CPAP at all, but only has mild apnea on recent re-check.I still believe that using CPAP may be of benefit to her. I recommended that she see her primary care physician for lightheadedness and dizziness at her lastvisit but she never made it. Updated Visit, April 02, 2020: Andrei is 69-year-old woman with history of ITP treated with Rituxan through November 2019. On return today, her platelets have been stable and improved. Her CPAP improved her overall fatigue and she is more compliant with usage. However, she reports having had 2 dizzy spells fairly recently and says she will follow-up with her primary care physician to work this up if it persists. She is requested Tessalon Perles again for her chronic intermittent cough. She is otherwise doing very well. Updated Visit, January 02, 2020: Andrei is 69 yo and is doing well. Platelets are stable. She is asymptomatic. If she stops responding, we will switch to Tavalisse. Updated Visit, December 05, 2019: Andrei is 69 years old and returns having completed Rituxan for 4 weekly doses. Her platelet counts are stable. She has no sequelae of thrombocytopenia. Reviewing her CBC shows white blood cell count 3.26, platelet count 83,000, H/H is 11.2/36.7. She reports daytime fatigue and a history of snoring having had a marginal sleep study in the past,she is much heavier now on I suspect that this may be contributing to her findings of both leukopenia and thrombocytopenia. I've encouraged her to obtain a sleep study. Her review of systems is otherwise negative by full review of organ systems. Updated Visit, October 31, 2019: Blow nose with slight bleeding with sneeze otherwise is asymptomatic. However, I am worried that she will have a more traumatic bleed. She is willing to proceed. Updated Visit, October 21, 2019: She is not on anything currently for her ITP. She has misty having her blood checked every three weeks and last week her platelet count was 24,000. She did notice some mild bruising. No bleeding. She does have fatigue. No new medications or infections. She does occasionally have a cough but this is not new for her. . Updated Visit, September 25, 2019: Returns -results are still pending from bone marrow studies but I spoke with the pathologist reading the slides and he indicated no significant acute pathology. Platelets are stable but slowly dropping, no petechiae reported or noted on visualization. She is aware of risks for bleeding especially if platelets drop precipitously. Exam limited to gross visualization where appropriate due to COVID-19. Updated Visit, September 13, 2019: Returns to review CT abdomen wich is essentially unremarkable for etiology of pain. CXR show lower lobe infiltrates consistent with her know upper respiratory tract infection and cough. She will be undergoing bone marrow aspirate in order to see if her marrow is intact and if she is making adequate platelets. Radiographic Data: Reviewed on January 27 2021. 3. 12/31/2020 CT Chest IMPRESSION: 1. Multiple subcentimeter nodular opacities measuring up to 7 mm (30-40) stable since 12/19/2019. If clinically indicated, consider one-year follow-up. 2. No interval changesince 12/19/2019. 2. 12/31/2020 CT chest IMPRESSION: 1. Multiple subcentimeter nodular opacities measuring up to 7 mm (30-40) stable since 12/19/2019. If clinically indicated, consider one-year follow-up. 2. No interval change since 12/19/2019. 1. 09/04/2019: CT abd/Pelvis w/: No evidence of bowel obstruction or pericolic inflammatory change. The appendix is not visualized but no evidence of inflammatory change is noted in the right lower quadrant of the abdomen. Borderline aneurysmal enlargement of the infrarenal abdominal aorta measuringup to 3.0 cm diameter. Subcentimeter nodular opacities in the right lung base measuring up to 4-5 mm. Multiple bilateral renal cysts. Subcentimeter right adrenal myelolipoma. Pathologic Profile/ Molecular Data: Reviewed on September 25, 2019 1. 09/13/2019 Bone marrow sternal aspirate: Bone marrow aspirate, clot section and peripheral blood (A-B): - Non-diagnostic lymphoid aggregates, see comment. - Unremarkable maturing trilineage hematopoiesis. REVIEW OF SYSTEMS Per HPI and otherwise negative by full review of organ systems. ECOG PERFORMANCE STATUS: 0 PHYSICAL EXAMINATION: Vitals: BP 157/91 Pulse 75 Temp (Src) 97.4 (Temporal) Resp 16 Ht 5' 2.52 (1.59m) Wt 193 lb 9.6 oz (87.8kg) SpO2 96% BMI 34.82 kg/(m^2). Body surface area is 1.97 meters squared. Exam limited to gross visualization where appropriate due to COVID-19. Gen.: This is an age-appropriate patient in no acute distress. Head: Appears atraumatic with no visible lesions. Eyes: Pupils equally round and reactive to light, extraocular muscles are intact. Neck: Supple. Mouth: Masked. Respiratory: Appears to be respiring comfortably. Neurologic: Nonfocal to gross visualization. Alert and oriented 3. Psychiatric: No evidence of inappropriate anxiety or depression. Skin: Visible areas of skin without rash, lesions, wounds or petechiae. ALLERGIES: ALLERGIES Allergen Reactions Tetnus [Tetanus Vac* Unknown Vancomycin Unknown Burning sensation MEDICATIONS: hydroCHLOROthiazide (HYDRODIURIL, ESIDRIX) 25 mg tablet TAKE 1 TABLET BY MOUTH EVERY DAY losartan (COZAAR) 25 mg tablet TAKE 1 TABLET BY MOUTH EVERY DAY benzonatate (TESSALON PERLE) 100 mg capsule Take 1 capsule by mouth every 6 hours as needed for cough. fostamatinib (TAVALISSE) 100 mg tablet Take 100 mg by mouth twice daily. cholecalciferol, vitamin D3, (VITAMIN D3 ORAL) Take by mouth. LABORATORY VALUES: Hemoglobin (g/dL) Date Value 10/28/2021 11.2 08/05/2021 11.2 Hematocrit (%) Date Value 10/28/2021 35.8 08/05/2021 36.4 WBC (k/uL) Date Value 10/28/2021 5.20 08/05/2021 5.36 Platelet Count (k/uL) Date Value 10/28/2021 119 08/05/2021 93 DIAGNOSIS: (D69.3) Chronic ITP (idiopathic thrombocytopenia) (HCC) (primary encounter diagnosis) Plan: LD LACTATE DEHYDRO, CBC + DIFF, COMP METABOLIC PANEL (I10) Essential hypertension (G47.33) Obstructive sleep apnea syndrome (R91.8) Lung nodules (M32.9) Systemic lupus erythematosus, unspecified SLE type, unspecified organ involvement status (HCC) PAST MEDICAL HISTORY Diagnosis Date Lupus (HCC) Thrombocytopenia (HCC) PAST SURGICAL HISTORY Procedure Laterality Date HYSTERECTOMY HX Social History Tobacco Use Smoking status: Light Tobacco Smoker Types: Cigarettes Smokeless tobacco: Never Used Vaping Use Vaping Use: Never used Substance Use Topics Alcohol use: No Drug use: No No family history on file. I spent a total of 20 minutes on the date of the service which included preparing to see the patient, [id number] patient care, completing clinical documentation, performing a medically appropriate examination, ordering medications, tests, or procedures and care coordination (not separately reporte d). Rinku Ramsey MD, CPE Services Provided at: [place], [place] & [place], [place] CC: Chadd Deluna [facility] History of Present illness Narrative* Mary Ellen Tidwell MA - 10/25/2021 8:12 AM EDT POPULATION HEALTH NAVIGATION OUTREACH Action/FYI Due for: PCP verify Spoke with patient; she stated she is currently looking for one near her home outside of [facility] Declined MyChart Pt identified by name and : NO Outreach Outcome/Action Spoke to patient or caregiver: Patient declined Reason for Outreach Care Gap or Scheduling/Wellness visits Payer: Payor: [employer] MED[employer]ARE / Plan: [employer] AARP MEDICARE HMO / Product Type: HMO / Care Gap Reviewed:: Annual Wellness visit Reminder: Reminder note to check Health Maintenance for items below Health Maintenance items due: ANNUAL PCP TEAM CHRONIC DISEASE VISIT Never done BP CONTROLLED (<130/80) Never done DTAP,TDAP,TD(1 - Tdap) Never done MAMMOGRAM Never done COLORECTAL CANCER SCREENING Never done SHINGRIX VACCINE(1 of 2) Never done BONE DENSITY Never done ADVANCE DIRECTIVE DISCUSSION Never done COVID-19 VACCINE(4 - Booster for Moderna series) due on 09/14/2021 Message Sent to Practice: No Navigation Signature: Mary Ellen Tidwell MA October 25, 2021 8:13 AM documented in this encounterTr[facility]04[facility] Miscellaneous Notes* Telephone Encounter - Jayden Connelly APRN.CNP - 10/19/2021 10:42 AM EDT The following approved medication requests have been transmitted electronically. Signed Prescriptions Disp Refills hydroCHLOROthiazide (HYDRODIURIL, ESIDRIX) 25 mg tablet 30 tablet 2 Sig: TAKE 1 TABLET BY MOUTH EVERY DAY JOVON: No Authorizing Provider: JAYDEN CONNELLY losartan (COZAAR) 25 mg tablet 30 tablet 2 Sig: TAKE 1 TABLET BY MOUTH EVERY DAY JOVON: No Authorizing Provider: JAYDEN CONNELLY APRN.CNP documented in this [facility]Tr[facility]11-03-[facility]21 Miscellaneous Notes* Telephone Encounter - Krista Harden RPh - 05/12/2021 3:42 PM EDT Andrei has been approved for free Tavalisse 05/10/21-07/09/21. I left Andrei a message 05/12/21 @ 1545 informing her of this and that a Rn from [employer] will be reaching out to her to set up delivery of her Tavalisse if they have not already and to call with any further questions. Gerard Harden RPh [facility]* Diagnosis Essential hypertension Unspecified essential hypertension Chronic ITP (idiopathic thrombocytopenia) (HCC) Immune thrombocytopenic purpura Obstructive sleep apnea syndrome Obstructive sleep apnea (adult) (pediatric) Hypertension, unspecified type [facility]* Diagnosis Chronic ITP (idiopathic thrombocytopenia) (HCC)- Primary Immune thrombocytopenic purpura Essential hypertension Unspecified essential hypertension Obstructive sleep apnea syndrome Obstructive sleep apnea (adult) (pediatric) Lung nodules Other nonspecific abnormal finding of lung field Systemic lupus erythematosus, unspecified SLE type, unspecified organ involvement status ([facility]) [facility]* Diagnosis Chronic ITP (idiopathic thrombocytopenia) (HCC)- Primary Immune thrombocytopenic purpura Hypertension, unspecified type Essential hypertension Unspecified essential hypertension Obstructive sleep apnea syndrome Obstructive sleep apnea (adult) (pediatric) Lung nodules Other nonspecific abnormal finding of lung field Systemic lupus erythematosus, unspecified SLE type, unspecified organ involvement status (HCC) [facility]* Diagnosis Hypertension, unspecified type [facility]* Diagnosis Essential hypertension Unspecified essential hypertension Chronic ITP (idiopathic thrombocytopenia) (HCC) Immune thrombocytopenic purpura Obstructive sleep apnea syndrome Obstructive sleep apnea (adult) (pediatric) Hypertension, unspecified type [facility]* Diagnosis Hypertension, unspecified type [facility]* Diagnosis Chronic ITP (idiopathic thrombocytopenia) (HCC)- Primary Immune thrombocytopenic purpura Essential hypertension Unspecified essential hypertension Obstructive sleep apnea syndrome Obstructive sleep apnea (adult) (pediatric) Systemic lupus erythematosus, unspecified SLE type, unspecified organ involvement status (HCC) [facility]* Diagnosis Hypertension, unspecified type [facility]* Diagnosis Chronic ITP (idiopathic thrombocytopenia) (HCC)- Primary Immune thrombocytopenic purpura Obstructive sleep apnea syndrome Obstructive sleep apnea (adult) (pediatric) [facility]* Diagnosis Chronic ITP (idiopathic thrombocytopenia) (HCC)- Primary Immune thrombocytopenic purpura Obstructive sleep apnea syndrome Obstructive sleep apnea (adult) (pediatric) Essential hypertension Unspecified essential hypertension [facility]* Diagnosis Hypertension, unspecified type [facility]* Diagnosis Chronic ITP (idiopathic thrombocytopenia) (HCC)- Primary Immune thrombocytopenic purpura Hypertension, unspecified type Obstructive sleep apnea syndrome Obstructive sleep apnea (adult) (pediatric) Systemic lupus erythematosus, unspecified SLE type, unspecified organ involvement status (HCC) [facility]* Diagnosis Chronic ITP (idiopathic thrombocytopenia) (HCC)- Primary Immune thrombocytopenic purpura Obstructive sleep apnea syndrome Obstructive sleep apnea (adult) (pediatric) Hypertension, unspecified type Systemic lupus erythematosus, unspecified SLE type, unspecified organ involvement status (HCC) Malaise and fatigue Other malaise and fatigue Skin lesion of right lower extremity [facility]* Diagnosis Hypertension, unspecified type [facility] noteNo assessment information availableMansfield Hospital Work Phone: Evaluation note* Diagnosis Chronic ITP (idiopathic thrombocytopenia) (HCC)- Primary Immune thrombocytopenic purpura Obstructive sleep apnea syndrome Obstructive sleep apnea (adult) (pediatric) documented in [facility] encounter [facility]* Diagnosis Hypertension, unspecified type documented in this encounter [facility] note* Diagnosis Chronic ITP (idiopathic thrombocytopenia) (HCC)- Primary Immune thrombocytopenic purpura documented in this encounter [facility] note* Diagnosis Chronic ITP (idiopathic thrombocytopenia) (HCC)- Primary Immune thrombocytopenic purpura Hypertension, unspecified type Obstructive sleep apnea syndrome Obstructive sleep apnea (adult) (pediatric) documented in this encounter [facility] note* Diagnosis Chronic ITP (idiopathic thrombocytopenia) (HCC)- Primary Immune thrombocytopenic purpura Essential hypertension Unspecified essential hypertension Obstructive sleep apnea syndrome Obstructive sleep apnea (adult) (pediatric) Systemic lupus erythematosus, unspecified SLE type, unspecified organ involvement status ([facility]) documented in this encounter [facility] noteNo InformationNortSix Degrees Games Other Evaluation note* Diagnosis Chronic ITP (idiopathic thrombocytopenia) (HCC)- Primary Immune thrombocytopenic purpura documented in this encounter [facility] note* Diagnosis Chronic ITP (idiopathic thrombocytopenia) (HCC)- Primary Immune thrombocytopenic purpura Essential hypertension Unspecified essential hypertension documented in this encounter [facility] note* Diagnosis Chronic ITP (idiopathic thrombocytopenia) (HCC)- Primary Immune thrombocytopenic purpura Essential hypertension Unspecified essential hypertension Hypertension, unspecified type documented in this encounter [facility] general Narrative - Reported* Type Description Date Medical History PULMONARY NODULES Medical History LUPUS Medical History THROMBOCYTOPENIA Medical History HYPERTESNION Surgical History APPENDECTOMY Surgical History BACK SURGERY Surgical History CYST REMOVAL FROM LEFT BREAST Surgical History GALL BLADDER REMOVED Surgical History PARTIAL HYSTERECTOMY Surgical History OVARY REMOVAL Surgical History LEFT LEG FRACTURE WITH PIN AND PLATE PLACEMENT Hospitalization History SEE ABOVE [facility] Other Summary Purpose Family History No Family History Records FoundNo Family History Records FoundNo Family History Records FoundNo Family History Records Found Advance Directives No Advanced Directives Records Found Advance Directive Response Recorded Date/ Time Advance Directives No July 22, 2022 10:59am Reason for Referral Specialty Diagnoses / Procedures Referred By Sobia guallpa Referred To Contact Dermatology Diagnoses Skin lesion of right lower extremity Procedures CONSULT TO DERMATOLOGY Jayden Connelly APRN.[employer] [address] [place] [address] Referral ID Status Reason Start Date Expiration Date Visits Requested Visits Authorized [id number] Ref Not Required PCP Requested Referral 08/04/2022 08/04/2023 1 1 Chief Complaint and Reason for Visit Chief Complaint HTN Lupus Chronic IT P I10 M32.9 D693 G47.33 n28.1 Additional Source Comments INFORMATION SOURCE (unrecogn ized section and content) DATE CREATED AUTHOR 01/02/2018 [facility] DATE CREATED AUTHOR AUTHOR'S ORGANIZ ATION 09/02/2022 [facility] DATE CREATED AUTHOR AUTHOR'S ORGANIZ ATION 06/07/2023 [facility] DATE CREATED AUTHOR AUTHOR'S ORGANIZ ATION 06/08/2023 [facility] EPIC Source Comments (unrecognize d section and content) In the event this informatio n is protected by the Federal Confidentiality of Alcohol and Drug Abuse Patient Records regulations: The Federal rules restrict any use of the information to criminally investigate or prosecute any alcohol or drug abuse patient.[facility] CenterIn the event this information is protected by the Federal Confidentiality of Alcohol and Drug Abuse Patient Records regulations: The Federal rules restrict any use of the information to criminally investigate or prosecute any alcohol or drug abuse patient.[facility] CenterIn the event this information is protected by the Federal Confidentiality of Alcohol and Drug Abuse Patient Records regulations: The Federal rules restrict any use of the information to criminally investigate or prosecute any alcohol or drug abuse patient.[facility] the event this information is protected by the Federal Confidentiality of Alcohol and Drug Abuse Patient Records regulations: The Federal rules restrict any use of the information to criminally investigate or prosecute any alcohol or drug abuse patient.[facility] CenterIn the event this information is protected by the Federal Confidentiality of Alcohol and Drug Abuse Patient Records regulations: The Federal rules restrict any use of the information to criminally investigate or prosecute any alcohol or drug abuse patient.[facility] CenterIn the event this information is protected by the Federal Confidentiality of Alcohol and Drug Abuse Patient Records regulations: The Federal rules restrict any use of the information to criminally investigate or prosecute any alcohol or drug abuse patient.[facility]In the event this information is protected by the Federal Confidentiality of Alcohol and Drug Abuse Patient Records regulations: The Federal rules restrict any use of the information to criminally investigate or prosecute any alcohol or drug abuse patient.[facility] CenterIn the event this information is protected by the Federal Confidentiality of Alcohol and Drug Abuse Patient Records regulations: The Federal rules restrict any use of the information to criminally investigate or prosecute any alcohol or drug abuse patient.[facility] CenterIn the event this information is protected by the Federal Confidentiality of Alcohol and Drug Abuse Patient Records regulations: The Federal rules restrict any use of the information to criminally investigate or prosecute any alcohol or drug abuse patient.[facility] CenterIn the event this information is protected by the Federal Confidentiality of Alcohol and Drug Abuse Patient Records regulations: The Federal rules restrict any use of the information to criminally investigate or prosecute any alcohol or drug abuse patient.[facility] CenterIn the event this information is protected by the Federal Confidentiality of Alcohol and Drug Abuse Patient Records regulations: The Federal rules restrict any use of the information to criminally investigate or prosecute any alcohol or drug abuse patient.[facility] CenterIn the event this information is protected by the Federal Confidentiality of Alcohol and Drug Abuse Patient Records regulations: The Federal rules restrict any use of the information to criminally investigate or prosecute any alcohol or drug abuse patient.[facility] CenterIn the event this information is protected by the Federal Confidentiality of Alcohol and Drug Abuse Patient Records regulations: The Federal rules restrict any use of the information to criminally investigate or prosecute any alcohol or drug abuse patient.[facility] CenterIn the event this information is protected by the Federal Confidentiality of Alcohol and Drug Abuse Patient Records regulations: The Federal rules restrict any use of the information to criminally investigate or prosecute any alcohol or drug abuse patient.[facility] CenterIn the event this information is protected by the Federal Confidentiality of Alcohol and Drug Abuse Patient Records regulations: The Federal rules restrict any use of the information to criminally investigate or prosecute any alcohol or drug abuse patient.[facility] CenterIn the event this information is protected by the Federal Confidentiality of Alcohol and Drug Abuse Patient Records regulations: The Federal rules restrict any use of the information to criminally investigate or prosecute any alcohol or drug abuse patient.[facility] CenterIn the event this information is protected by the Federal Confidentiality of Alcohol and Drug Abuse Patient Records regulations: The Federal rules restrict any use of the information to criminally investigate or prosecute any alcohol or drug abuse patient.[facility] CenterIn the event this information is protected by the Federal Confidentiality of Alcohol and Drug Abuse Patient Records regulations: The Federal rules restrict any use of the information to criminally investigate or prosecute any alcohol or drug abuse patient.[facility] CenterIn the event this information is protected by the Federal Confidentiality of Alcohol and Drug Abuse Patient Records regulations: The Federal rules restrict any use of the information to criminally investigate or prosecute any alcohol or drug abuse patient.[facility] CenterIn the event this information is protected by the Federal Confidentiality of Alcohol and Drug Abuse Patient Records regulations: The Federal rules restrict any use of the information to criminally investigate or prosecute any alcohol or drug abuse patient.[facility] CenterIn the event this information is protected by the Federal Confidentiality of Alcohol and Drug Abuse Patient Records regulations: The Federal rules restrict any use of the information to criminally investigate or prosecute any alcohol or drug abuse patient.[facility] CenterIn the event this information is protected by the Federal Confidentiality of Alcohol and Drug Abuse Patient Records regulations: The Federal rules restrict any use of the information to criminally investigate or prosecute any alcohol or drug abuse patient.[facility] CenterIn the event this information is protected by the Federal Confidentiality of Alcohol and Drug Abuse Patient Records regulations: The Federal rules restrict any use of the information to criminally investigate or prosecute any alcohol or drug abuse patient.[facility] CenterIn the event this information is protected by the Federal Confidentiality of Alcohol and Drug Abuse Patient Records regulations: The Federal rules restrict any use of the information to criminally investigate or prosecute any alcohol or drug abuse patient.[facility] CenterIn the event this information is protected by the Federal Confidentiality of Alcohol and Drug Abuse Patient Records regulations: The Federal rules restrict any use of the information to criminally investigate or prosecute any alcohol or drug abuse patient.[facility] CenterIn the event this information is protected by the Federal Confidentiality of Alcohol and Drug Abuse Patient Records regulations: The Federal rules restrict any use of the information to criminally investigate or prosecute any alcohol or drug abuse patient.[facility] CenterIn the event this information is protected by the Federal Confidentiality of Alcohol and Drug Abuse Patient Records regulations: The Federal rules restrict any use of the information to criminally investigate or prosecute any alcohol or drug abuse patient.[facility] CenterIn the event this information is protected by the Federal Confidentiality of Alcohol and Drug Abuse Patient Records regulations: The Federal rules restrict any use of the information to criminally investigate or prosecute any alcohol or drug abuse patient.[facility] CenterIn the event this information is protected by the Federal Confidentiality of Alcohol and Drug Abuse Patient Records regulations: The Federal rules restrict any use of the information to criminally investigate or prosecute any alcohol or drug abuse patient.[facility] CenterIn the event this information is protected by the Federal Confidentiality of Alcohol and Drug Abuse Patient Records regulations: The Federal rules restrict any use of the information to criminally investigate or prosecute any alcohol or drug abuse patient.[facility] CenterIn the event this information is protected by the Federal Confidentiality of Alcohol and Drug Abuse Patient Records regulations: The Federal rules restrict any use of the information to criminally investigate or prosecute any alcohol or drug abuse patient.[facility] CenterIn the event this information is protected by the Federal Confidentiality of Alcohol and Drug Abuse Patient Records regulations: The Federal rules restrict any use of the information to criminally investigate or prosecute any alcohol or drug abuse patient.[facility] CenterIn the event this information is protected by the Federal Confidentiality of Alcohol and Drug Abuse Patient Records regulations: The Federal rules restrict any use of the information to criminally investigate or prosecute any alcohol or drug abuse patient.[facility] CenterIn the event this information is protected by the Federal Confidentiality of Alcohol and Drug Abuse Patient Records regulations: The Federal rules restrict any use of the information to criminally investigate or prosecute any alcohol or drug abuse patient.[facility] CenterIn the event this information is protected by the Federal Confidentiality of Alcohol and Drug Abuse Patient Records regulations: The Federal rules restrict any use of the information to criminally investigate or prosecute any alcohol or drug abuse patient.[facility] CenterIn the event this information is protected by the Federal Confidentiality of Alcohol and Drug Abuse Patient Records regulations: The Federal rules restrict any use of the information to criminally investigate or prosecute any alcohol or drug abuse patient.[facility] CenterIn the event this information is protected by the Federal Confidentiality of Alcohol and Drug Abuse Patient Records regulations: The Federal rules restrict any use of the information to criminally investigate or prosecute any alcohol or drug abuse patient.[facility] CenterIn the event this information is protected by the Federal Confidentiality of Alcohol and Drug Abuse Patient Records regulations: The Federal rules restrict any use of the information to criminally investigate or prosecute any alcohol or drug abuse patient.[facility] Reason for Visit (unrecogniz ed section and content) Reason Comments Refill Request Reason Onset Date Comments Population Health Navigation Outreach 10/25/2021 ACO PCP Reason Comments chronic ITP Reason Comments Chronic ITP 1 month follow up Reason Comments Medication Follow-up [place] free drug application faxed Reason Comments Thrombocytopenia Reason Comments Chronic ITP Reason Comments ITP Follow up Reason Comments ITP Follow up Reason Comments Referral Information Dermatology Reason Onset Date Comments Refill Request 09/23/2022 Reason Comments Chronic ITP (idiopathic thrombocytopenia ) (HCC) Reason Comments Lab Orders Reason Comments ITP Reason Onset Date Comments Refill Request 05/01/2023 Care Teams (unrecognized sec tion and content) 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 Specialty Start Date End Date Paloma Saldaña [address] [employer] [facility] [place] [address] PCP - General Family Practice 05/26/21 05/31/21 Team Status: Inactive Member Role Status Dates Gilson Sarah MD Attending Provider Active NON STAFF Primary Care Provider Active Team Status: Active Member Role Status Dates NON STAFF Primary Care Provider Active 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 Start Date End Date Shaikh Biswas MD [address] [place], [place] [id number] PCP - General Primary Care 09/15/22 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 Specialty Start Date End Date Shaikh Biswas MD [address] [place] [address] PCP - General Primary Care 09/15/22 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 Specialty Start Date End Date Shaikh Biswas MD [address] [place] [address] PCP - General Primary Care 09/15/22 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 Specialty Start Date End Date Shaikh Biswas MD [address] [place] [address] PCP - General Primary Care 09/15/22 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 Specialty Start Date End Date Stephanie Dumont [address] [place] [address] PCP - General 04/20/23 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 This clinical summary was aggregated from multiple sources. Caution should be exercised in using it in the provision of clinical care. This summary normalizes information from multiple sources, and as a consequence, information in this document may materially change the coding, format and clinical context of patient data. In addition, data may be omitted in some cases. CLINICAL DECISIONS SHOULD BE BASED ON THE PRIMARY CLINICAL RECORDS. [facility]. provides no warranty or guarantee of the accuracy or completeness of information in this document.
== END 2023-05-17 14:25 | disposition home or self-care (01) ==
LOC: MAMMO 14:24
PROVIDERS: PCP Internal Medicine; Visit Provider Nurse Practitioner
DX: Z12.31 Encounter for screening mammogram for malignant neoplasm of breast (principal); Z80.3 Family history of malignant neoplasm of breast; Z80.2 Family history of malignant neoplasm of other respiratory and intrathoracic organs; Z80.8 Family history of malignant neoplasm of other organs or systems
CPT/HCPCS: 77063; 77067

== ENCOUNTER 2023-05-24 10:03 | Outpatient (OUT) | payer MEDICARE, SELFPAY ==
--- NOTE | 2023-05-24 10:06 | XR_ITS ---
[place] [id number] Patient Name: JASPREET LEO MRN: [id number] date: 1950 Sex: F Assigned Patient Location: [facility] Current Patient Location: [facility] Accession/Order Number: [id number] Exam Date: 05/24/2023 10:22 Report Date: 05/24/2023 12:06 At the request of: ALEXI TOPETE Procedure: XR DEXA axial skeleton EXAM: XR DEXA axial skeleton HISTORY: Menopause Z78.0 COMPARISON: None. TECHNIQUE: Routine DEXA scan lumbar spine and bilateral hips. FINDINGS: L1-L4: Bone mineral density 0.920 g/sq cm and T score -2.2 Left femoral neck: Bone mineral density 0.630 g/sq cm and T score -2.9 Left hip total: Bone mineral density 0.638 g/sq cm and T score -2.9 Right femoral neck: Bone mineral density 0.705 g/sq cm and T score -2.4 Right hip total: Bone mineral density 0.760 g/sq cm and T score -2.0 XR/XR DEXA axial skeleton IMPRESSION: Osteoporosis. Electronically authenticated by: JIE ANDRADE Date: 05/24/2023 12:06
== END 2023-05-24 10:04 | disposition home or self-care (01) ==
LOC: RAD 10:03
PROVIDERS: PCP Internal Medicine; Visit Provider Nurse Practitioner
DX: Z78.0 Asymptomatic menopausal state (principal); M81.0 Age-related osteoporosis without current pathological fracture
CPT/HCPCS: 77080

== ENCOUNTER 2023-09-11 11:16 | Outpatient (OUT) | payer MEDICARE, SELFPAY ==
--- NOTE | 2023-09-11 11:20 | US_ITS ---
[address] [address] Patient Name: JASPREET LEO MRN: [id number] date: 1950 Sex: F Assigned Patient Location: [place] Current Patient Location: US Accession/Order Number: [id number] Exam Date: 09/11/2023 11:30 Report Date: 09/11/2023 12:18 At the request of: CATALINA ARRIOLA Procedure: US renal BI EXAMINATION: US renal BI HISTORY: essential hypertension I10, lupus M32.9 COMPARISON: No relevant comparison available. TECHNIQUE: Ultrasound examination was performed of the bladder. FINDINGS: Right Kidney: Normal in size, contour and echotexture. 2.3 cm area of anechoic echogenicity lower pole, simple cyst. The cortex measures 1.1 cm. No solid cortical mass, hydronephrosis or obstructing nephrolithiasis Height: 3.6 cm Length: 11.1 cm Width: 4.9 cm Left Kidney: Normal in size, contour and echotexture. 2.0 cm area of anechoic echogenicity lower pole, simple cyst. The cortex measures 1.1 cm. No solid cortical mass or hydronephrosis. 3 mm nonobstructing nephrolith Height: 6.2 cm Length: 10.6 cm Width: 4.6 cm Urinary bladder measures 134 cc US/US renal BI IMPRESSION: Bilateral renal cortical cysts Electronically authenticated by: SAMMIE SHEPPARD Date: 09/11/2023 12:18
--- OUTSIDE RECORDS SUMMARY | 2023-09-11 11:25 | XMS_ITS | CCD ---
Author Name Unknown Address [address] [place] [address] Organization [facility] Care Team Providers Care Box Stapler Name Role Phone COTY WRIGHT Unavailable Unavailable COTY WRIGHT Unavailable Unavailable VANCE SCHERER Unavailable Unavailable VANCE SCHERER Unavailable Unavailable Unavailable Primary Care Provider Unavailaudrey e Paloma Saldaña Primary Care Provider [phone] Tyrel, Gilson Unavailable Unavailable Primary Care Provider Unavailaudrey e Unavailable Primary Care Provider UnavailMD Gilson Galvez Attending Provider NON STAFF Primary Care Provider UnavailFeroz Reeves MDikh Primary Care Provider Tim, Stephanie Primary Care Provider Tim AGENCY SALES REPRESENTATIVE, Stephanie Unavailable Wilfred Polanco MD Primary Care Provider Gilson Sarah Attending Unavailable Gilson Sarah Admitting Unavailable NON STAFF Primary Care Unavailable TyrelCalul Attending Unavailable Tyrel Gilson Admitting Unavailable Wilfred Polanco MD Primary Care Provider [phone] KARISSA ASTUDILLO Attending Unavailable AICHHOLZ, STEPHANIE Referring Unavailable MAR MAYO Attending Unavailable AICHHOLZ, STEPHANIE Referring Unavailable AICHHOLZ, STEPHANIE Attending Unavailable JAYDEN CNONELLY Referring Unavailable ABHYANKAR, RINKU Referring Unavailable ANA HERNANDEZ Attending Unavailable ABHYANKAR, RINKU Referring Unavailable ABHYANKAR, RINKU Attending Unavailable ABHYANKAR, RINKU Referring Unavailable ABHYANKAR, RINKU Attending Unavailable SHAIKH BISWAS Primary Care Unavailable ABHYANKAR, RINKU Attending Unavailable ABHYANKAR, RINKU Referring Unavailable ABHYANKAR, RINKU Attending Unavailable ABHYANKAR, RINKU Referring Unavailable FAWWAD, [facility] Primary Care Unavailable GODWIN, JAYDEN Referring Unavailable ABHYANKAR, RINKU Referring Unavailable ABHYANKAR, RINKU Attending Unavailable GODWIN, JAYDEN Referring Unavailable FAWWAD, [facility] Primary Care Unavailable FAWWAD, [facility] Primary Care Unavailable GODWIN, JAYDEN Referring Unavailable FAWWAD, [facility] Primary Care Unavailable ABHYANKAR, RINKU Attending Unavailable ABHYANKAR, RINKU Referring Unavailable FAWWAD, [facility] Primary Care Unavailable GODWIN, JAYDEN Referring Unavailable GODWIN, JAYDEN Referring Unavailable ABHYANKAR, RINKU Referring Unavailable ABHYANKAR, RINKU Attending Unavailable GODWIN, JAYDEN Referring Unavailable ABHYANKAR, RINKU Referring Unavailable ABHYANKAR, RINKU Attending Unavailable Allergies Allergy Classification Reported Allergen(s) Allergy Type Date of Onset Reaction(s) Facility (1 source) codeine; Translations: [CODEINE PHOSPHATE] Drug Allergy 05-20-20 09 [facility] Repository (1 source) codeine; Translations: [CODEINE SULFATE] Drug Allergy 05-20-20 09 [facility] Repository (1 source) VANCOMYCIN AND DERIVATIVES; Translations: [VANCOMYCIN AND DERIVATIVES] Propensity to adverse reactions (disorder) 05-20-20 09 [facility] Repository (20 sources) Vancomycin; Translations: [VANCOMYCIN] Drug Allergy 03-03-20 16 Unknown, Other [facility] (6 sources) Tetanus Vaccines And Toxoid; Translations: [TETANUS VACCINES AND TOXOID] Drug Allergy 03-03-20 16 Unknown [facility] (1 source) Tetanus vaccine Drug allergy Unknown [facility] Other (20 sources) Tetanus Vaccines And Toxoid Drug Allergy 03-03-20 16 Unknown [facility] (4 sources) Tetanus vaccine Drug allergy Unknown [facility] Other (6 sources) Tetanus-Diphth- Acell Pertussis Drug Intolerance 06-06-20 [facility] (1 source) Vancomycin Drug Allergy 06-28-20 [facility] Repository (1 source) tetanus toxoid, adsorbed Drug allergy (disorder) 06-28-20 [facility] Repository Medications Current Medications Medication Drug Class(es) Dates Sig (Normalized) Sig (Original) cholecalciferol (Vitamin D3) 200 Unit tablet split tablet (6 sources) cholecalciferol (Vitamin D3) 200 Unit tablet split tablet Take 2,000 Units by mouth in the morning. 0 Active Completed/Discontinued Medications Medication Drug Class(es) Dates Sig (Normalized) Sig (Original) alendronic acid 70 mg oral tablet (9 sources) Bisphosphonate Start: 06-06-2023 End: 08-29-2023 alendronate (FOSAMAX) 70 mg tablet PLEASE SEE ATTACHED FOR DETAILED DIRECTIONS 0 06/06/2023 Active Alendronate Sodi um 70 MG 1 tablet 30 minutes before the first food, beverage or medicine of the day with plain water Orally ONCE A WEEK Active Comment on above: PLEASE SEE ATTACHED FOR DETAILED DIRECTIONS amoxicillin 875 mg / clavulanate 125 mg oral tablet (1 source) Penicillin-class Antibacterial Start : 04-29 End: 05-13 take 1 tablet by mouth twice daily amoxicillin-clavulanic acid (AUGMENTIN) 875-125 mg per tablet Indications: Malaise and fatigue , Acute frontal sinusitis, recurrence not specified Take 1 tablet by mouth twice daily for 14 days. 28 tablet 0 04/29/2021 05/13/2021 Comment on above: [facility]. benzonatate 100 mg oral capsule (20 sources) Non-narcotic Antitussive Start : 09-16 End: 07-25 take 1 capsule by mouth every six hours as needed benzonatate (TESSALON PERLE) 100 mg capsule TAKE 1 CAPSULE BY MOUTH EVERY 6 HOURS NEEDED FOR COUGH. 100 capsule 0 07/25/2022 Active Comment on above: Take 1 capsule by mo [facility] every 6 hours as needed for cough. cholecalciferol, vitamin D3, (VITAMIN D3 ORAL) (20 sources) cholecalciferol, vitamin D3, (VITAMIN D3 ORAL) Take by mouth. 0 Active Comment on above: Take by mouth. ergocalciferol 1.25 mg oral capsule (3 sources) Provitamin D2 Compound Start : 06-28 take 1 capsule by mouth every week ergocalciferol 50,000 unit capsule (VITAMIN D2, DRISDOL) Take 1 capsule by mouth one time a week. 0 06/28/2023 Active Comment on above: Take 1 capsule by mo [facility] one time a week. fostamatinib 100 mg oral tablet (20 sources) Start : 04-29 End: 05-01 take 1 tablet by mouth twice daily [...] oral tablet (1 source) Loop Diuretic End: 07-16 furosemide (LASIX) 20 mg tablet Take 20 mg by mouth as needed. 0 07/16/2021 Discontinued (Discontinued by Patient) Comment on above: Take 20 mg by mouth as needed. hydroCHLOROthiazide 25 mg oral tablet (20 sources) Thiazide Diuretic Start : 01-26 take 1 tablet by mouth once daily [...] tablet (1 source) Nonsteroidal Anti-inflammatory Drug End: 2 take 1 tablet by mouth every six hours as needed ibuprofen (MOTRIN) 200 mg tablet Take 200 mg by mouth every 6 hours as needed. 0 07/16/2021 Discontinued (Discontinued by Patient) Comment on above: Take 200 mg by mouth every 6 hours as needed. lisinopril 10 mg oral tablet (1 source) Angiotensin Converting Enzyme Inhibitor Start: 1 End: 1 take 1 tablet by mouth once daily lisinopril (ZESTRIL, PRINIVIL) 10 mg tablet Indications: Secondary hypertension Take 1 tablet by mouth once daily. 30 tablet 1 04/29/2021 05/13/2021 Discontinued Comment on above: Take 1 tablet by darling th once daily. losartan potassium 25 mg oral tablet (20 sources) Angiotensin 2 Receptor Natividad Start: End: take 2 tablets by mouth once daily at bedtime losartan (COZAAR) 25 mg tablet Indications: Hypertension, unspecified type Take 2 tablets by mouth daily at bedtime. 180 tablet 3 09/23/2022 09/04/2023 Discontinued Start: 02-06-2022 End: 03-07-2022 take 2 tablets [...] tablets by mo uth daily at bedtime. take 2 tablets by mo uth every day at bedtime Magnesium (1 source) End: 2 MAGNESIUM ORAL Take by mouth. 0 07/16/2021 Discontinued (Discontinued by Patient) Comment on above: Take by mouth. pilocarpine hydrochloride 5 mg oral tablet (20 sources) Cholinergic Receptor Agonist Start: take 1 tablet by mouth three times [...] A DAY spironolactone 25 mg oral tablet (20 sources) Aldosterone Antagonist Start: 09-08-19 take 1 tablet by mouth once daily spironolactone (ALDACTONE) 25 mg tablet Take 25 mg by mouth once daily. 0 09/07/2022 Active Comment on above: Take 25 mg by mouth once daily. Zinc (1 source) End: 07-16-19 22 ZINC ORAL Take by mouth. 0 07/16/2021 Discontinued (Discontinued by Patient) Comment on above: Take by mouth. Problems Active Problems Problem Classification Problem Date Documented Date Episodic/Chronic Coagulation and hemorrhagic disorders (20 sources) Chronic idiopathic thrombocytopenic purpura; Translations: [Immune thrombocytopenic purpura] Onset: 03-03-2016 Resolved: 11-10-2021 Chronic Deficiency and other anemia (3 sources) Anemia, unspecified; Translations: [Anemia, unspecified] Onset: 06-28-2023 Episodic Essential hypertension (20 sources) Essential hypertension; Translations: [Essential (primary) hypertension] Onset: 05-13-2021 Resolved: 11-10-2021 Chronic Malaise and fatigue (2 sources) Malaise and fatigue; Translations: [Other malaise] Episodic Nutritional deficiencies (2 sources) Vitamin D deficiency; Translations: [Vitamin D deficiency, unspecified] Chronic Osteoporosis (6 sources) Senile osteoporosis; Translations: [Age-related osteoporosis without current pathological fracture] Onset: 06-06-2023 06-06-2023 Chronic Other connective tissue disease (20 sources) Cramp in lower limb; Translations: [Sleep related leg cramps] Onset: 10-05-2017 10-05-2017 Chronic Other connective tissue disease (6 sources) Pain in bilateral legs; Translations: [Pain in right leg] Onset: 06-06-2023 06-06-2023 Episodic Other diseases of kidney and ureters (4 sources) Cyst of kidney, acquired; Translations: [Cyst of kidney, acquired] Onset: 06-28-2023 Episodic Other ear and sense organ disorders (3 sources) Mixed conductive AND sensorineural hearing loss; Translations: [Mixed conductive and sensorineural hearing loss, unilateral, left ear with restricted hearing on the contralateral side] 08-16-2023 Chronic Other lower respiratory disease (2 sources) Multiple nodules of lung; Translations: [Other nonspecific abnormal finding of lung field] Episodic Other nervous system disorders (6 sources) Compression injury of nerve; 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, unspecified] Onset: 06-28-2022 06-06-2023 Chronic Other non-traumatic joint disorders (6 sources) Pain of left wrist; Translations: [Pain in left wrist] Onset: 06-06-2023 06-06-2023 Episodic Other nutritional; endocrine; and metabolic disorders (6 sources) Body mass index 30+ - obesity; Translations: [Obesity, unspecified] Onset: 06-06-2023 06-06-2023 Chronic Other nutritional; endocrine; and metabolic disorders (1 source) Hyperuricemia without signs of inflammatory arthritis and tophaceous disease Episodic Other skin disorders (1 source) Mass of skin of right lower limb; Translations: [Disorder of the skin and subcutaneous tissue, unspecified] Episodic Otitis media and related conditions (9 sources) Perforation of left tympanic membrane; Translations: [Unspecified perforation of tympanic membrane, left ear] Onset: 06-06-2023 08-16-2023 Episodic Peripheral and visceral atherosclerosis (12 sources) Intermittent claudication; Translations: [Peripheral vascular disease, unspecified] Onset: 06-08-2023 06-08-2023 Chronic Residual codes; unclassified (20 sources) Obstructive sleep apnea syndrome; Translations: [Obstructive sleep apnea (adult) (pediatric)] Onset: 05-13-2021 Chronic Residual codes; unclassified (4 sources) Obstructive sleep apnea (adult) (pediatric); Translations: [Obstructive sleep apnea (adult) (pediatric)] Onset: 11-10-2021 Resolved: 11-10-2021 Chronic Substance-related disorders (6 sources) Tobacco dependence syndrome; Translations: [Nicotine dependence, unspecified, uncomplicated] Onset: 06-28-2022 06-06-2023 Chronic Systemic lupus erythematosus and connective tissue disorders (20 sources) Lupus erythematosus; Translations: [Systemic lupus erythematosus, unspecified] Onset: 03-03-2016 Resolved: 11-10-2021 03-03-2016 Chronic Unclassified (2 sources) Unknown / UNK(Unknown) Onset: 05-24-2016 Past or Other Problems Problem Classification Problem Date Documented Da te Episodic/Chronic Diseases of mouth; excluding dental (6 sources) Xerostomia; Translations: [Dry mouth, unspecified] Onset: 01-05-2017 06-06-2023 Episodic Other bone disease and musculoskeletal deformities (5 [...] neoplasm of breast] Onset: 04-13-2017 04-13-2017 Episodic Thyroid disorders (6 sources) Disorder of thyroid gland; Translations: [Disorder of thyroid, unspecified] Onset: 06-28-2022 06-06-2023 Episodic Results Test Name Value Interpretation Reference Range Facility CBC W Auto Differential pane l (Bld)on 08-28-2023 Basophils (Bld) [#/Vol] 10*3/uL Normal <0.11 [facility] Comment on above: Order Comment: Speci men Type: BLOOD SPECIMEN Ordering Facility: [facility] Address: [address] [id number] Performed By: #### 2 4323-8 #### [facility] CLIA [id number] [address] [place] [address] Basophils/100 WBC (Bld) 0.4 % Normal [facility] Comment on above: Order Comment: Speci men Type: BLOOD SPECIMEN Ordering Facility: [facility] Address: [address] [place] [address] Performed By: #### 2 4323-8 #### [facility] CLIA [id number] [address] [place] [address] Differential cell count method Nom (Bld) Auto Normal [facility] Comment on above: Order Comment: Speci men Type: BLOOD SPECIMEN Ordering Facility: [facility] Address: [address] [place] [address] Performed By: #### 2 4323-8 #### [facility] CLIA [id number] [address] [place] [address]489 Eosinophils (Bld) [#/Vol] 0.06 10*3/uL Normal <0.46 [facility] Comment on above: Order Comment: Speci men Type: BLOOD SPECIMEN Ordering Facility: [facility] Address: [address] [place] [address] Performed By: #### 2 4323-8 #### [facility] CLIA [id number] [address] [place] [address] Eosinophils/100 WBC (Bld) 1.1 % Normal [facility] Comment on above: Order Comment: Speci men Type: BLOOD SPECIMEN Ordering Facility: [facility] Address: [facility] [place] [address] Performed By: #### 2 4323-8 #### [facility] CLIA [id number] [address] [place] [address] Erythrocyte distribution width (RBC) [Ratio] 14.3 % Normal 11.5-15.0 [facility] Comment on above: Order Comment: Speci men Type: BLOOD SPECIMEN Ordering Facility: [facility] Address: [address] [place] [address] Performed By: #### 2 4323-8 #### [facility] CLIA [id number] [address] [place] [address] Hematocrit (Bld) [Volume fraction] 32.5 % Low 36.0-46.0 [facility] Comment on above: Order Comment: Speci men Type: BLOOD SPECIMEN Ordering Facility: [facility] Address: [address] [place] [address] Performed By: #### 2 4323-8 #### [facility] CLIA [id number] [address] [place] [address] 13243 Hemoglobin (Bld) [Mass/Vol] 10.4 g/dL Low 11.5-15.5 [facility] Comment on above: Order Comment: Speci men Type: BLOOD SPECIMEN Ordering Facility: [facility] Address: [address] [place] [address] Performed By: #### 2 4323-8 #### [facility] CLIA [id number] [address] [place] [address] 85692 Immature granulocytes (Bld) [#/Vol] 10*3/uL Normal <0.10 [facility] Comment on above: Order Comment: Speci men Type: BLOOD SPECIMEN Ordering Facility: [facility] Address: [address] [place] [address] Performed By: #### 2 4323-8 #### [facility] CLIA [id number] [address] [place] [address]2551 Immature granulocytes/100 WBC (Bld) 0.4 % Normal [facility] Comment on above: Order Comment: Speci men Type: BLOOD SPECIMEN Ordering Facility: [facility] Address: [address] [place] [address] Performed By: #### 2 4323-8 #### [facility] CLIA [id number] [address] [place] [address] Lymphocytes (Bld) [#/Vol] 2.38 10*3/uL Normal 1.00-4.00 [facility] Comment on above: Order Comment: Speci men Type: BLOOD SPECIMEN Ordering Facility: [facility] Address: [address] [place], [place] [id number] Performed By: #### 2 4323-8 #### [facility] CLIA [id number] [address] [place] [address]46 Lymphocytes/100 WBC (Bld) 44.3 % Normal [facility] Comment on above: Order Comment: Speci men Type: BLOOD SPECIMEN Ordering Facility: [facility] Address: [address] [place] [address] Performed By: #### 2 4323-8 #### [facility] CLIA [id number] [address] [place] [address] 27897 MCH (RBC) [Entitic mass] 32.0 pg Normal 26.0-34.0 [facility] Comment on above: Order Comment: Speci men Type: BLOOD SPECIMEN Ordering Facility: [facility] Address: [address] [place] [address] Performed By: #### 2 4323-8 #### [facility] CLIA [id number] [address] [place] [address] 83604 MCHC (RBC) [Mass/Vol] 32.0 g/dL Normal 30.5-36.0 [facility] Comment on above: Order Comment: Speci men Type: BLOOD SPECIMEN Ordering Facility: [facility] Address: [address] [place] [address] Performed By: #### 2 4323-8 #### [facility] CLIA [id number] [address] [place] [address] 74391 MCV (RBC) [Entitic vol] 100.0 fL Normal 80.0-100.0 C [facility] Comment on above: Order Comment: Speci men Type: BLOOD SPECIMEN Ordering Facility: [facility] Address: [address] [place] [address] Performed By: #### 2 4323-8 #### [facility] CLIA [id number] [address] [place] [address] Monocytes (Bld) [#/Vol] 0.29 10*3/uL Normal <0.87 [facility] Comment on above: Order Comment: Speci men Type: BLOOD SPECIMEN Ordering Facility: [facility] Address: [address] [place] [address] Performed By: #### 2 4323-8 #### [facility] CLIA [id number] [address] [place] [address]35 Monocytes/100 WBC (Bld) 5.4 % Normal [facility] Comment on above: Order Comment: Speci men Type: BLOOD SPECIMEN Ordering Facility: [facility] Address: [address] [place] [address] Performed By: #### 2 4323-8 #### [facility] CLIA [id number] [address] [place] [address]907 Neutrophils (Bld) [#/Vol] 2.60 10*3/uL Normal 1.45-7.50 [facility] Comment on above: Order Comment: Speci men Type: BLOOD SPECIMEN Ordering Facility: [facility] Address: [address] [place] [address] Performed By: #### 2 4323-8 #### [facility] CLIA [id number] [address] [place] [address] 85997 Neutrophils/100 WBC (Bld) 48.4 % Normal [facility] Comment on above: Order Comment: Speci men Type: BLOOD SPECIMEN Ordering Facility: [facility] Address: [address] [place] [address] Performed By: #### 2 4323-8 #### [facility] CLIA [id number] [address] [place] [address] 31529 Nucleated RBC (Bld) [#/Vol] 10*3/uL Normal <0.01 [facility] Comment on above: Order Comment: Speci men Type: BLOOD SPECIMEN Ordering Facility: [facility] Address: [address] [id number] Performed By: #### 2 4323-8 #### [facility] CLIA [id number] [address] [place] [address] Nucleated RBC/100 WBC (Bld) [Ratio] 0.0 /100 WBC Normal [facility] Comment on above: Order Comment: Speci men Type: BLOOD SPECIMEN Ordering Facility: [facility] Address: [address] [place] [address] Performed By: #### 2 4323-8 #### [facility] CLIA [id number] [address] [place] [address] 15169 Platelet mean volume (Bld) [Entitic vol] 9.3 fL Normal 9.0-12.7 [facility] Comment on above: Order Comment: Speci men Type: BLOOD SPECIMEN Ordering Facility: [facility] Address: [address] [place] [address] Performed By: #### 2 4323-8 #### [facility] CLIA [id number] [address] [place] [address] 21166 Platelets (Bld) [#/Vol] 124 10*3/uL Low 150-400 [facility] Comment on above: Order Comment: Speci men Type: BLOOD SPECIMEN Ordering Facility: [facility] Address: [address] [place] [address] Performed By: #### 2 4323-8 #### [facility] CLIA [id number] [address] [place] [address]79 RBC (Bld) [#/Vol] 3.25 10*6/uL Low 3.90-5.20 [facility] Comment on above: Order Comment: Speci men Type: BLOOD SPECIMEN Ordering Facility: [facility] Address: [address] [place] [address] Performed By: #### 2 4323-8 #### [facility] CLIA [id number] [address] [place] [address]1187 WBC (Bld) [#/Vol] 5.37 10*3/uL Normal 3.70-11.00 [facility] Comment on above: Order Comment: Speci men Type: BLOOD SPECIMEN Ordering Facility: [facility] Address: [address] [place] [address] Performed By: #### 2 4323-8 #### [facility] CLIA [id number] [address] [place] [address] CNOVSPon 08-28-2023 CNOVSP Visit (SP) Office ([place]AS[place]) ANDREI LEO ([id number]) 1950 F Date Time Provider Department 08/28/23 2:45 PM RINKU RAMSEY During your visit today, we recorded the following information about you: Temperature Pulse Respiration Blood pressure 97.6 degrees 85/minute 16/minute 132/78 Weight 87.3 kg Rinku Ramsey MD 08/28/2023 7:35 PM Signed NAME: Abe Andrei CLINIC NO.: [id number] DATE OF SERVICE: August 28, 2023 (Joon) Some elements in this clinic note that are critical to medical decision making have been carefully reviewed and included from a prior clinic note dated: July 17, 2023 (Joon) Additional Clinicians involved in Paulalicia Leo's care: Dr. Shay, Dr. Deluna DIAGNOSIS: Chronic ITP ASSESSMENT: 1. Thrombocytopenia (HCC) - (primary diagnosis) She has chronic ITP. She [...] respond to Tavalisse started 05/2021. 2. Pulmonary nodules: 12/31/2020 CT Chest stable. No new findings. 3. Lupus (HCC) - She is asymptomatic from Lupus of the [...] Follow up in 6 weeks with labs. - HPI: Case History: 03/29/2023 - US Renal Bilateral: Normal-sized kidneys without hydronephrosis. Small bilateral renal cysts, one with calcifications along the wall on the left. 03/12/2023 - CT A/P: No calculi. No hydronephrosis or hydroureter. Reasonably well-defined renal hypodensities. Tiny hyperdensity peripherally in the right kidney may represent a very small cyst containing proteinaceous/hemorrha gic material. No GI obstruction. No focally thickened loop of bowel. No fluid collections in the abdomen/pelvis. Infrarenal 31 mm AAA. 11/20/2021 - Ultrasound retroperitoneal complete: No evidence of echogenic calculi or hydronephrosis. There are bilateral renal cysts. Measurements as described above. 05/14/2021-Current - Tavalisse 12/31/2020 - CT Chest: Multiple subcentimeter nodular opacities measuring up to 7 mm (30-40) stable since 12/19/2019. If clinically indicated, consider one-year follow-up. No interval change since 12/19/2019. 10/31/2019-11/21/2019 - Weekly Rituxan x 4 09/13/2019 - Bone marrow sternal aspirate: Bone marrow aspirate, clot section and peripheral blood (A-B): Non-diagnostic lymphoid aggregates, see comment. Unremarkable maturing trilineage hematopoiesis. 09/04/2019 - CT A/P: No evidence of bowel obstruction or pericolic [...] bilateral renal cysts. Subcentimeter right adrenal myelolipoma. 04/11/2019 - Plaquenil which she stopped 01/2019 - Prednisone 2018 - Rituxan X 4 Updated Visit, August 28, 2023: Andrei returns today. Labs look good, BP is good. She notes she had another episode of hypotension recently. She reports leg, hip, and back pain, and still feels weakness in the back of her legs. She notes she has dizzy spells that may be related to an ear issue - following with ENT. Updated Visit, July 17, 2023: Andrei returns today for follow up. She reports that on she had an episode of hypotension while she was cooking and felt like she was going to lose consciousness. Her BP returned to normal after sitting down for a half hour or so, it is normal today. Her , daughter, and brother all came down with Covid around that time as well. Otherwise, she has been doing well. The back pain she'd been having has resolved. She has been having some weakness when moving around a lot in the backs of her knees. She is taking Ca and Vitamin D, in addition to Fosamax, for her osteoporosis. We reviewed her labs, which showed slight improvement in her anemia. Chemistries and other labs still in process. We discussed she does't have a need for B12 or folic acid replacement at [facility] (more content not included)... Normal [facility] Comprehensive metabolic 2000 panelon 08-28-2023 Albumin [Mass/Vol] 3.9 g/dL Normal 3.9-4.9 [facility] Comment on above: Order Comment: Speci men Type: BLOOD SPECIMEN Ordering Facility: [facility] Address: [address] [place] [address] Performed By: #### 2 4323-8 #### [facility] CLIA [id number] [address] [place] [address] ALP [Catalytic activity/Vol] 65 U/L Normal 34-123 [facility] Comment on above: Order Comment: Speci men Type: BLOOD SPECIMEN Ordering Facility: [facility] Address: [address] [place] [id number] Performed By: #### 2 4323-8 #### [facility] CLIA [id number] [address] [place] [address] ALT [Catalytic activity/Vol] 19 U/L Normal 7-38 [facility] Comment on above: Order Comment: Speci men Type: BLOOD SPECIMEN Ordering Facility: [facility] Address: [address] [place] [address] Performed By: #### 2 4323-8 #### [facility] CLIA [id number] [address] [place] [address] Anion gap [Moles/Vol] 7 mmol/L Low 9-18 [facility] Comment on above: Order Comment: Speci men Type: BLOOD SPECIMEN Ordering Facility: [facility] Address: [address] [place], [place] [address] Performed By: #### 2 4323-8 #### [facility] CLIA [id number] [address] [place] [address] AST [Catalytic activity/Vol] 27 U/L Normal 13-35 [facility] Comment on above: Order Comment: Speci men Type: BLOOD SPECIMEN Ordering Facility: [facility] Address: [address] [place], [place] [address] Performed By: #### 2 4323-8 #### [facility] CLIA [id number] [address] [place] [address] Bilirubin [Mass/Vol] 0.3 mg/dL Normal 0.2-1.3 [facility] Comment on above: Order Comment: Speci men Type: BLOOD SPECIMEN Ordering Facility: [facility] Address: [address] [place] [address] Performed By: #### 2 4323-8 #### [facility] CLIA [id number] [address] [place] [address] Calcium [Mass/Vol] 10.0 mg/dL Normal 8.5-10.2 [facility] Comment on above: Order Comment: Speci men Type: BLOOD SPECIMEN Ordering Facility: [facility] Address: [address] [place] [id number] Performed By: #### 2 4323-8 #### [facility] CLIA [id number] [address] [place] [address] Chloride [Moles/Vol] 106 mmol/L High 97-105 [facility] Comment on above: Order Comment: Speci men Type: BLOOD SPECIMEN Ordering Facility: [facility] Address: [address] [place] [id number] Performed By: #### 2 4323-8 #### [facility] CLIA [id number] [address] [place] [address] CO2 [Moles/Vol] 25 mmol/L Normal 22-30 [facility] Comment on above: Order Comment: Speci men Type: BLOOD SPECIMEN Ordering Facility: [facility] Address: [address] [place] [id number] Performed By: #### 2 4323-8 #### [facility] CLIA [id number] [address] [place] [address] Creatinine [Mass/Vol] 1.02 mg/dL High 0.58-0.96 [facility] Comment on above: Order Comment: Speci men Type: BLOOD SPECIMEN Ordering Facility: [facility] Address: [address] [place] [id number] Performed By: #### 2 4323-8 #### [facility] CLIA [id number] [address] [place] [address] Creatinine and Glomerular filtration rate.predicted panel (S/P/Bld) 59 mL/min/1.73m??? Low >=60 [facility] Comment on above: Order Comment: Fabricio tapia Type: BLOOD SPECIMEN Ordering Facility: [facility] Address: [address] [place] [address] Result Comment: Miryam mated Glomerular Filtration Rate [...] actual GFR. Performed By: #### 2 4323-8 #### [facility] CLIA [id number] [address] [place] [address] Glucose [Mass/Vol] 101 mg/dL High 74-99 [facility] Comment on above: Order Comment: Fabricio tapia Type: BLOOD SPECIMEN Ordering Facility: [facility] Address: [address] [place] [address] Result Comment: The [place] [employer] (ADA) provides guidance for cutoff [...] Standards of Medical Care in Diabetes 2016, [place] [employer]. Diabetes Care. 2016.39(Suppl 1). Performed By: #### 2 4323-8 #### [facility] CLIA [id number] [address] [place] [address] Potassium [Moles/Vol] 4.2 mmol/L Normal 3.7-5.1 [facility] Comment on above: Order Comment: Speci men Type: BLOOD SPECIMEN Ordering Facility: [facility] Address: [address] [place] [id number] Performed By: #### 2 4323-8 #### [facility] CLIA [id number] [address] [place] [address] Protein [Mass/Vol] 7.5 g/dL Normal 6.3-8.0 [facility] Comment on above: Order Comment: Speci men Type: BLOOD SPECIMEN Ordering Facility: [facility] Address: [address] [place] [address] Performed By: #### 2 4323-8 #### [facility] CLIA [id number] [address] [place] [address] Sodium [Moles/Vol] 138 mmol/L Normal 136-144 [facility] Comment on above: Order Comment: Speci men Type: BLOOD SPECIMEN Ordering Facility: [facility] Address: [address] [place] [address] Performed By: #### 2 4323-8 #### [facility] CLIA [id number] [address] [place] [address] Urea nitrogen [Mass/Vol] 25 mg/dL High 7-21 [facility] Comment on above: Order Comment: Speci men Type: BLOOD SPECIMEN Ordering Facility: [facility] Address: [address] [place] [address] Performed By: #### 2 4323-8 #### [facility] CLIA [id number] [address] [place] [address] Ferritin SerPl-mCncon 2023 Ferritin [Mass/Vol] 93.1 ng/mL Normal 14.7-205.1 [facility] Comment on above: Order Comment: Speci men Type: BLOOD SPECIMENOrdering Facility: [facility] Address: [address] [place] [address] Performed By: #### 5 0190-8, 2276-4, 2132-9, 2284-8 ####[facility] [id number] [address] [address] [place] Folate SerPl-mCncon 08-28-19 Folate [Mass/Vol] 7.3 ng/mL Normal >4.7 [facility] Comment on above: Order Comment: Speci men Type: BLOOD SPECIMENOrdering Facility: [facility] Address: [address] [place] [address] Performed By: #### 5 0190-8, 2275-4, 2132-03, 2284-02 ####[facility] [id number] [place] [id number] [place] Iron and Iron binding capaci ty panelon 08-28-2023 Iron [Mass/Vol] 50 ug/dL Normal 41-186 [facility] Comment on above: Order Comment: Speci men Type: BLOOD SPECIMENOrdering Facility: [facility] Address: [address] [place] [address] Performed By: #### 5 0190-8, 2275-, 2132-03, 2284-02 ####[facility]IA [id number] [place] [address] [place] Iron binding capacity [Mass/Vol] 362 ug/dL Normal 232-386 [facility] Comment on above: Order Comment: Speci men Type: BLOOD SPECIMENOrdering Facility: [facility] Address: [address] [place] [address] Performed By: #### 5 0190-8, 2275-4, 2132-03, 2284-02 ####[facility]IA [id number] [place] [id number] [place] Iron/TIBC [Molar ratio] 13.8 % Low 15.0-57.0 [facility] Comment on above: Order Comment: Speci men Type: BLOOD SPECIMENOrdering Facility: [facility] Address: [address] [place] [address] Performed By: #### 5 0190-8, 2275-10, 2132-03, 2284-02 ####[facility] [id number] [place] [address] [place] Vit B12 SerPl-mCncon 024 Cobalamin (Vitamin B12) [Mass/Vol] 437 pg/mL Normal 232-1245 [facility] Comment on above: Order Comment: Speci men Type: BLOOD SPECIMENOrdering Facility: [facility] Address: [address] [place] [address] Performed By: #### 5 0190-8, 4, 2132-03, 2284-02 ####[facility] [id number] [address] [place] Auditory function testson Right Ear: Mild sensorineural hearing loss from 250 Hz - 500 Hz. 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 Severe mixed hearing loss above 3K Hz [facility] CBC W Auto Differential pane l (Bld)on 07-17-2023 Basophils (Bld) [#/Vol] 10*3/uL Normal <0.11 C [facility] Comment on above: Order Comment: Speci men Type: BLOOD SPECIMENOrdering Facility: [facility] Address: [address] [place] [address] Performed By: #### 5 7021-8 ####[facility] [id number] [place] [address] Basophils/100 WBC (Bld) 0.3 % Normal C [facility] Comment on above: Order Comment: Speci men Type: BLOOD SPECIMENOrdering Facility: [facility] Address: [address] [place] [address] Performed By: #### 5 7021-8 ####[facility] [id number] [place] [address] Differential cell count method Nom (Bld) Auto Normal [facility] Comment on above: Order Comment: Speci men Type: BLOOD SPECIMENOrdering Facility: [facility] Address: [address] [place] [address] Performed By: #### 5 7021-8 ####[facility] [id number] [place] [address] Eosinophils (Bld) [#/Vol] 0.05 10*3/uL Normal <0.46 [facility] Comment on above: Order Comment: Speci men Type: BLOOD SPECIMENOrdering Facility: [facility] Address: [address] [place] [address] Performed By: #### 5 7021-8 ####[facility] [id number] [place] [address] Eosinophils/100 WBC (Bld) 0.8 % Normal [facility] Comment on above: Order Comment: Speci men Type: BLOOD SPECIMENOrdering Facility: [facility] Address: [address] [place] [address] Performed By: #### 5 7021-8 ####[facility] [id number] [place] [address] Erythrocyte distribution width (RBC) [Ratio] 14.1 % Normal 11.5-15.0 [facility] Comment on above: Order Comment: Speci men Type: BLOOD SPECIMENOrdering Facility: [facility] Address: [address] [place] [address] Performed By: #### 5 7021-8 ####[facility] [id number] [place] [address] Hematocrit (Bld) [Volume fraction] 34.7 % Low 36.0-46.0 [facility] Comment on above: Order Comment: Speci men Type: BLOOD SPECIMENOrdering Facility: [facility] Address: [address] [place] [address] Performed By: #### 5 7021-8 ####[facility] [id number] [place] [address] Hemoglobin (Bld) [Mass/Vol] 11.1 g/dL Low 11.5-15.5 [facility] Comment on above: Order Comment: Speci men Type: BLOOD SPECIMENOrdering Facility: [facility] Address: [address] [place] [address] Performed By: #### 5 7021-8 ####[facility] [id number] [place] [address] Immature granulocytes (Bld) [#/Vol] 10*3/uL Normal <0.10 [facility] Comment on above: Order Comment: Speci men Type: BLOOD SPECIMENOrdering Facility: [facility] Address: [address] [place] [address] Performed By: #### 5 7021-8 ####[facility] [id number] [place] [address] Immature granulocytes/100 WBC (Bld) 0.2 % Normal [facility] Comment on above: Order Comment: Speci men Type: BLOOD SPECIMENOrdering Facility: [facility] Address: [address] [place] [address] Performed By: #### 5 7021-8 ####[facility] [id number] [place] [address] Lymphocytes (Bld) [#/Vol] 3.00 10*3/uL Normal 1.00-4.00 [facility] Comment on above: Order Comment: Speci men Type: BLOOD SPECIMENOrdering Facility: [facility] Address: [address] [place] [address] Performed By: #### 5 7021-8 ####[facility] [id number] [place] [address] Lymphocytes/100 WBC (Bld) 49.4 % Normal [facility] Comment on above: Order Comment: Speci men Type: BLOOD SPECIMENOrdering Facility: [facility] Address: [address] [place] [address] Performed By: #### 5 7021-8 ####[facility] [id number] [place] [address] MCH (RBC) [Entitic mass] 31.1 pg Normal 26.0-34.0 [facility] Comment on above: Order Comment: Speci men Type: BLOOD SPECIMENOrdering Facility: [facility] Address: [address] [place] [address] Performed By: #### 5 7021-8 ####[facility] [id number] [place] [address] MCHC (RBC) [Mass/Vol] 32.0 g/dL Normal 30.5-36.0 [facility] Comment on above: Order Comment: Speci men Type: BLOOD SPECIMENOrdering Facility: [facility] Address: [address] [place] [address] Performed By: #### 5 7021-8 ####[facility] [id number] [place] [address] MCV (RBC) [Entitic vol] 97.2 fL Normal 80.0-100.0 C [facility] Comment on above: Order Comment: Speci men Type: BLOOD SPECIMENOrdering Facility: [facility] Address: [address] [place] [address] Performed By: #### 5 7021-8 ####[facility] [id number] [place] [address] Monocytes (Bld) [#/Vol] 0.24 10*3/uL Normal <0.87 [facility] Comment on above: Order Comment: Speci men Type: BLOOD SPECIMENOrdering Facility: [facility] Address: [address] [place] [address] Performed By: #### 5 7021-8 ####[facility] [id number] [place] [address] Monocytes/100 WBC (Bld) 4.0 % Normal C [facility] Comment on above: Order Comment: Speci men Type: BLOOD SPECIMENOrdering Facility: [facility] Address: [address] [place] [address] Performed By: #### 5 7021-8 ####[facility] [id number] [place] [address] Neutrophils (Bld) [#/Vol] 2.75 10*3/uL Normal 1.45-7.50 [facility] Comment on above: Order Comment: Speci men Type: BLOOD SPECIMENOrdering Facility: [facility] Address: [address] [place] [address] Performed By: #### 5 7021-8 ####[facility] [id number] [place] [address] Neutrophils/100 WBC (Bld) 45.3 % Normal [facility] Comment on above: Order Comment: Speci men Type: BLOOD SPECIMENOrdering Facility: [facility] Address: [address] [place] [address] Performed By: #### 5 7021-8 ####[facility] [id number] [place] [address] Nucleated RBC (Bld) [#/Vol] 10*3/uL Normal <0.01 [facility] Comment on above: Order Comment: Speci men Type: BLOOD SPECIMENOrdering Facility: [facility] Address: [address] [place] [address] Performed By: #### 5 7021-8 ####[facility] [id number] [place] [address] Nucleated RBC/100 WBC (Bld) [Ratio] 0.0 /100 WBC Normal [facility] Comment on above: Order Comment: Speci men Type: BLOOD SPECIMENOrdering Facility: [facility] Address: [address] [place] [address] Performed By: #### 5 7021-8 ####[facility] [id number] [place] [address] Platelet mean volume (Bld) [Entitic vol] 9.3 fL Normal 9.0-12.7 [facility] Comment on above: Order Comment: Speci men Type: BLOOD SPECIMENOrdering Facility: [facility] Address: [address] [place] [address] Performed By: #### 5 7021-8 ####[facility] [id number] [place] [address] Platelets (Bld) [#/Vol] 148 10*3/uL Low 150-400 [facility] Comment on above: Order Comment: Speci men Type: BLOOD SPECIMENOrdering Facility: [facility] Address: [address] [place] [address] Performed By: #### 5 7021-8 ####[facility] [id number] [place] [address] RBC (Bld) [#/Vol] 3.57 10*6/uL Low 3.90-5.20 [facility] Comment on above: Order Comment: Speci men Type: BLOOD SPECIMENOrdering Facility: [facility] Address: [address] [place] [address] Performed By: #### 5 7021-8 ####[facility] [id number] [place] [address] WBC (Bld) [#/Vol] 6.07 10*3/uL Normal 3.70-11.00 [facility] Comment on above: Order Comment: Speci men Type: BLOOD SPECIMENOrdering Facility: [facility] Address: [address] [place] [address] Performed By: #### 5 7021-8 ####[facility] [id number] [place] [address] CNOVSPon 07-17-2023 CNOVSP Visit (SP) Office (HE[place]AS[place]) ANDREI LEO ([id number]) 1950 F Date Time Provider Department 07/17/23 3:00 PM RINKU RAMSEY During your visit today, we recorded the following information about you: Temperature Pulse Respiration Blood pressure 97.4 degrees 86/minute 16/minute 122/68 Weight Height 87 kg 1.588 m Rinku Ramsey MD 07/17/2023 2:59 PM Signed Continue Tavalisse 100 mg twice daily. Follow up in 6 weeks with labs. Rinku Ramsey MD 07/17/2023 8:30 PM Signed NAME: Andrei Leo CLINIC NO.: [id number] DATE OF SERVICE: July 17, 2023 (Joon) Some elements in this clinic note that are critical to medical decision making have been carefully reviewed and included from a prior clinic note dated: June 05, 2023 (Mary). Additional Clinicians involved in Andrei Leo's care: Dr. Shay, Dr. Deluna DIAGNOSIS: Chronic ITP ASSESSMENT: 1. Thrombocytopenia (HCC) - (primary diagnosis) She has chronic ITP. She [...] respond to Tavalisse started 05/2021. 2. Pulmonary nodules: 12/31/2020 CT Chest stable. No new findings. 3. Lupus (HCC) - She is asymptomatic from Lupus of the [...] Follow up in 6 weeks with labs. - HPI: Case History: 03/29/2023 - US renal bilateral: Normal-sized kidneys without hydronephrosis. Small bilateral renal cysts, one with calcifications along the wall on the left. 03/12/2023 - CT abdomen/pelvis: No calculi. No hydronephrosis or hydroureter. Reasonably well-defined renal hypodensities. Tiny hyperdensity peripherally in the right kidney may represent a very small cyst containing proteinaceous/hemorrha gic material. No GI obstruction. No focally thickened loop of bowel. No fluid collections in the abdomen/pelvis. Infrarenal 31 mm AAA. 11/20/2021 - Ultrasound retroperitoneal complete: No evidence of echogenic calculi or hydronephrosis. There are bilateral renal cysts. Measurements as described above. 05/14/2021-Current - Tavalisse 12/31/2020 - CT Chest: Multiple subcentimeter nodular opacities measuring up to 7 mm (30-40) stable since 12/19/2019. If clinically indicated, consider one-year follow-up. No interval change since 12/19/2019. 10/31/2019-11/21/2019 - Weekly Rituxan x 4 09/13/2019 - Bone marrow sternal aspirate: Bone marrow aspirate, clot section and peripheral blood (A-B): Non-diagnostic lymphoid aggregates, see comment. Unremarkable maturing trilineage hematopoiesis. 09/04/2019 - CT abd/Pelvis w/: No evidence of bowel [...] bilateral renal cysts. Subcentimeter right adrenal myelolipoma. 04/11/2019 - Plaquenil which she stopped 01/2019 - Prednisone 2018 - Rituxan X 4 Updated Visit, July 17, 2023: Andrei returns today for follow up. She reports that on Yudy she had an episode of hypotension while she was cooking and felt like she was going to lose consciousness. Her BP returned to normal after sitting down for a half hour or so, it is normal today. Her , daughter, and bother all came down with Covid around that time as well. Otherwise, she has been doing well. The back pain she'd been having has resolved. She has been having some weakness when moving around a lot in the backs of her knees. She is taking Ca and Vitamin D, in addition to Fosamax, for her osteoporosis. We reviewed her labs, which showed slight improvement in her anemia. Chemistries and other labs still in process. We discussed she does't have a need for B12 or folic acid replacement at this time, but we can monitor this. Updated Visit, June 05, 2023: Andrei returns for follow up. Remains on Tavalisse 100 mg BID. She reports having a mammogram and dexa scan at (more content not included)... Normal [facility] Comprehensive metabolic 2000 panelon 07-17-2023 Albumin [Mass/Vol] 4.0 g/dL Normal 3.9-4.9 [facility] Comment on above: Order Comment: Speci men Type: BLOOD SPECIMENOrdering Facility: [facility] Address: [address] [place] [address] Performed By: #### 2 4323-8 ####[facility] [id number] [place] [address] ALP [Catalytic activity/Vol] 77 U/L Normal 34-123 [facility] Comment on above: Order Comment: Speci men Type: BLOOD SPECIMENOrdering Facility: [facility] Address: [address] [place] [address] Performed By: #### 2 4323-8 ####[facility] [id number] [place] [address] ALT [Catalytic activity/Vol] 17 U/L Normal 7-38 [facility] Comment on above: Order Comment: Speci men Type: BLOOD SPECIMENOrdering Facility: [facility] Address: [address] [place] [address] Performed By: #### 2 4323-8 ####[facility] [id number] [place] [address] Anion gap [Moles/Vol] 8 mmol/L Low 9-18 [facility] Comment on above: Order Comment: Speci men Type: BLOOD SPECIMENOrdering Facility: [facility] Address: [address] [place] [address] Performed By: #### 2 4323-8 ####[facility] [id number] [place] [address] AST [Catalytic activity/Vol] 26 U/L Normal 13-35 [facility] Comment on above: Order Comment: Speci men Type: BLOOD SPECIMENOrdering Facility: [facility] Address: [address] [place] [address] Performed By: #### 2 4323-8 ####[facility] [id number] [place] [address] Bilirubin [Mass/Vol] 0.4 mg/dL Normal 0.2-1.3 [facility] Comment on above: Order Comment: Speci men Type: BLOOD SPECIMENOrdering Facility: [facility] Address: [address] [place] [address] Performed By: #### 2 4323-8 ####[facility] [id number] [place] [address] Calcium [Mass/Vol] 9.7 mg/dL Normal 8.5-10.2 [facility] Comment on above: Order Comment: Speci men Type: BLOOD SPECIMENOrdering Facility: [facility] Address: [address] [place] [address] Performed By: #### 2 4323-8 ####[facility] LABCLIA [id number] [place] [address] Chloride [Moles/Vol] 106 mmol/L High 97-105 [facility] Comment on above: Order Comment: Speci men Type: BLOOD SPECIMENOrdering Facility: [facility] Address: [address] [place] [address] Performed By: #### 2 4323-8 ####[facility] LABCLIA [id number] [place] [address] CO2 [Moles/Vol] 24 mmol/L Normal 22-30 [facility] Comment on above: Order Comment: Speci men Type: BLOOD SPECIMENOrdering Facility: [facility] Address: [address] [place] [address] Performed By: #### 2 4323-8 ####[facility] LABCLIA [id number] [place] [address] Creatinine [Mass/Vol] 1.32 mg/dL High 0.58-0.96 [facility] Comment on above: Order Comment: Speci men Type: BLOOD SPECIMENOrdering Facility: [facility] Address: [address] [place] [address] Performed By: #### 2 4323-8 ####[facility] LABCLIA [id number] [place] [address] Creatinine and Glomerular filtration rate.predicted panel (S/P/Bld) 43 mL/min/1.73m??? Low >=60 [facility] Comment on above: Order Comment: Speci men Type: BLOOD SPECIMENOrdering Facility: [facility] Address: [address] [place] [address] Result Comment: Miryam mated Glomerular Filtration Rate [...] actual GFR. Performed By: #### 2 4323-8 ####[facility] LABCLIA [id number] [place] [address] Glucose [Mass/Vol] 119 mg/dL High 74-99 [facility] Comment on above: Order Comment: Speci men Type: BLOOD SPECIMENOrdering Facility: [facility] Address: [address] [place] [address] Result Comment: The [place] Diabetes Association (ADA) provides guidance for cutoff [...] Standards of Medical Care in Diabetes 2016, [place] [employer]. Diabetes Care. 2016.39(Suppl 1). Performed By: #### 2 4323-8 ####[facility] LABCLIA [id number] [place] [address] Potassium [Moles/Vol] 4.4 mmol/L Normal 3.7-5.1 [facility] Comment on above: Order Comment: Speci men Type: BLOOD SPECIMENOrdering Facility: [facility] Address: [address] [place] [place] [id number] Performed By: #### 2 4323-8 ####[facility] LABCLIA [id number] [place] [address] Protein [Mass/Vol] 7.6 g/dL Normal 6.3-8.0 [facility] Comment on above: Order Comment: Speci men Type: BLOOD SPECIMENOrdering Facility: [facility] Address: [address] [place] [address] Performed By: #### 2 4323-8 ####[facility] LABCLIA [id number] [place] [address] Sodium [Moles/Vol] 138 mmol/L Normal 136-144 [facility] Comment on above: Order Comment: Speci men Type: BLOOD SPECIMENOrdering Facility: [facility] Address: [address] [place] [address] Performed By: #### 2 4323-8 ####[facility] LABCLIA [id number] [place] [address] Urea nitrogen [Mass/Vol] 35 mg/dL High 7-21 [facility] Comment on above: Order Comment: Speci men Type: BLOOD SPECIMENOrdering Facility: [facility] Address: [address] [place] [address] Performed By: #### 2 4323-8 ####[facility] LABCLIA [id number] [place] [address] Ferritin SerPl-mCncon 2023 Ferritin [Mass/Vol] 71.8 ng/mL Normal 14.7-205.1 [facility] Comment on above: Order Comment: Speci men Type: BLOOD SPECIMENOrdering Facility: [facility] Address: [address] [place] [address] Performed By: #### 5 0190-8, 2131-9, 6-4, 2283-8 ####[facility] LABCLIA [id number] [place] [address] [place] Folate SerPl-mCncon 07-17-19 Folate [Mass/Vol] 8.6 ng/mL Normal >4.7 [facility] Comment on above: Order Comment: Speci men Type: BLOOD SPECIMENOrdering Facility: [facility] Address: [address] [place] [address] Performed By: #### 5 0190-8, 2131-9, 6-4, 4-8 ####[facility] LABCLIA [id number] [place] [id number] [place] Iron and Iron binding capaci ty panelon 07-17-2023 Iron [Mass/Vol] 66 ug/dL Normal 41-186 [facility] Comment on above: Order Comment: Speci men Type: BLOOD SPECIMENOrdering Facility: [facility] Address: [address] [place] [address] Performed By: #### 5 0190-8, 9, 2275-10, 2284-02 ####[facility] LABCLIA [id number] [place] [address] [place] Iron binding capacity [Mass/Vol] 349 ug/dL Normal 232-386 [facility] Comment on above: Order Comment: Speci men Type: BLOOD SPECIMENOrdering Facility: [facility] Address: [address] [place] [address] Performed By: #### 5 0190-8, 9, 2275-10, 2284-02 ####[facility] LABCLIA [id number] [place] [address] [place] Iron/TIBC [Molar ratio] 18.9 % Normal 15.0-57.0 [facility] Comment on above: Order Comment: Speci men Type: BLOOD SPECIMENOrdering Facility: [facility] Address: [address] [place] [address] Performed By: #### 5 0190-8, 9, 2275-10, 2284-02 ####[facility] LABCLIA [id number] [place] [id number] [place] Vit B12 [facility] Cobalamin (Vitamin B12) [Mass/Vol] 486 pg/mL Normal 232-1245 [facility] Comment on above: Order Comment: Speci men Type: BLOOD SPECIMENOrdering Facility: [facility] Address: [address] [place] [address] Performed By: #### 5 0190-8, 9, 2275-10, 2284-02 ####[facility] LABCLIA [id number] [facility] [id number] [address] [place] Dipstick & Microscopicon Dipstick & Microscopic No [employer] Other Dipstick and Microscopicon 1 08-29-2022 Appearance (U) Clear Normal Clear [facility] Comment on above: Order Comment: Reaso n for Exam HTN (hypertension);Lupus;Chronic ITP (idiopathic thrombocyto Performed By: #### C BCNO #### [facility] [address] [place] [address] [place] Bacteria,Urine None Seen Normal None Seen [facility] Comment on above: Order Comment: Reaso n for Exam HTN (hypertension);Lupus;Chronic ITP (idiopathic thrombocyto Performed By: #### C BCNO #### [facility] [address] [place] [address] [place] Bilirubin,Urine Negative Normal Negative [facility] Comment on above: Order Comment: Reaso n for Exam HTN (hypertension);Lupus;Chronic ITP (idiopathic thrombocyto Performed By: #### C BCNO #### [facility] [address] [place] [address] [place] Color (U) Yellow Normal Yellow [facility] Comment on above: Order Comment: Reaso n for Exam HTN (hypertension);Lupus;Chronic ITP (idiopathic thrombocyto Performed By: #### C BCNO #### [facility] [address] [place] [id number] [place] Glucose Ql (U) Normal Normal Normal [facility] Comment on above: Order Comment: Reaso n for Exam HTN (hypertension);Lupus;Chronic ITP (idiopathic thrombocyto Performed By: #### C BCNO #### [facility] [address] [place] [id number] [place] Hyaline Casts,Urine 0-8 Normal 0-8 [facility] Comment on above: Order Comment: Reaso n for Exam HTN (hypertension);Lupus;Chronic ITP (idiopathic thrombocyto Result Comment: PERF ORMED BY: [facility] [address] [place] [address] PATHOLOGIST STEAM DRIER TENDER IVORY BORRERO M.D. Performed By: #### C BCNO #### [facility] [address] Ketones Ql (U) Negative Normal Negative [facility] Comment on above: Order Comment: Reaso n for Exam HTN (hypertension);Lupus;Chronic ITP (idiopathic thrombocyto Performed By: #### C BCNO #### [facility] [address] Leukocyte esterase Test strip Ql (U) Negative Normal Negative [facility] Comment on above: Order Comment: Reaso n for Exam HTN (hypertension);Lupus;Chronic ITP (idiopathic thrombocyto Performed By: #### C BCNO #### [facility] [address] Nitrite,Urine Negative Normal Negative [facility] Comment on above: Order Comment: Reaso n for Exam HTN (hypertension);Lupus;Chronic ITP (idiopathic thrombocyto Performed By: #### C BCNO #### [facility] [address] Occult Blood,Urine Negative Normal Negative [facility] Comment on above: Order Comment: Reaso n for Exam HTN (hypertension);Lupus;Chronic ITP (idiopathic thrombocyto Performed By: #### C BCNO #### [facility] [address] [place] [address] [place] pH (U) 5.5 [pH] Normal 5.0-9.0 [facility] Comment on above: Order Comment: Reaso n for Exam HTN (hypertension);Lupus;Chronic ITP (idiopathic thrombocyto Performed By: #### C BCNO #### [facility] [address] [place] [phone] [place] Protein,Urine Negative Normal Negative [facility] Comment on above: Order Comment: Reaso n for Exam HTN (hypertension);Lupus;Chronic ITP (idiopathic thrombocyto Performed By: #### C BCNO #### [facility] [address] [place] [address] [place] RBC,Urine 3-4 Normal 0-4 [facility] Comment on above: Order Comment: Reaso n for Exam HTN (hypertension);Lupus;Chronic ITP (idiopathic thrombocyto Performed By: #### C BCNO #### [address] Specificy [place],Urine 1.019 Normal 1.001-1.030 [facility] Comment on above: Order Comment: Reaso n for Exam HTN (hypertension);Lupus;Chronic ITP (idiopathic thrombocyto Performed By: #### C BCNO #### [address] Squamous Epithelial Cell,Urine 3-4 High 0-2 [facility] Comment on above: Order Comment: Reaso n for Exam HTN (hypertension);Lupus;Chronic ITP (idiopathic thrombocyto Performed By: #### C BCNO #### [address] Urobilinogen,Urine Normal Normal Normal [facility] Comment on above: Order Comment: Reaso n for Exam HTN (hypertension);Lupus;Chronic ITP (idiopathic thrombocyto Performed By: #### C BCNO #### [address] WBC LM.HPF (Urine sed) [#/Area] 0 /[HPF] Normal 0-4 [facility] Comment on above: Order Comment: Reaso n for Exam HTN (hypertension);Lupus;Chronic ITP (idiopathic thrombocyto Performed By: #### C BCNO #### [address] Ferritinon 06-28-2023 Ferritin [Mass/Vol] 51.2339830 ng/mL Normal 11.0 -306.8 ng/mL [employer] Other Ferritin [Mass/Vol] 51.6 ng/mL Normal 11.0-306.8 [facility] Comment on above: Order Comment: Reaso n for Exam HTN (hypertension);Lupus;Chronic ITP (idiopathic thrombocyto Performed By: #### C BCNO, RENAL, MG, [id number], TRAN, PROCRERAT, PTH, URIC #### [address] Hemogram CBC Without Diffon 06-28-2023 Erythrocyte distribution width (RBC) [Ratio] 15.200 % Normal 11.9-15.3 % [employer] Other Hematocrit (Bld) [Volume fraction] 32.300 % Low 34.0-46.4 % [employer] Other Hemoglobin (Bld) [Mass/Vol] 10.719633 g/dL Low 11.8-15.4 g/dL [employer] Other MCH (RBC) [Entitic mass] 31.8000 pg Normal 24.7-34.3 pg [employer] Other MCV (RBC) [Entitic vol] 96.6000 fL Normal 80-100 fL [employer] Other Platelet mean volume (Bld) [Entitic vol] 8.3000 fL Normal 6.3-10.7 fL [employer] Other WBC (Bld) [#/Vol] 4.820659816 10*3/uL Normal 3.8 -11.6 10*3/uL [employer] Other Hemogram CBC Without Diff 32.9 g/dL Normal 32.0-35.0 g/dL [employer] Other Erythrocyte distribution width (RBC) [Ratio] 15.2 % Normal 11.9-15.3 [facility] Comment on above: Order Comment: Reaso n for Exam HTN (hypertension);Lupus;Chronic ITP (idiopathic thrombocyto Performed By: #### C BCNO, RENAL, MG, [id number], TRAN, PROCRERAT, PTH, URIC #### [facility] [address] Hematocrit (Bld) [Volume fraction] 32.3 % Low 34.0-46.4 [facility] Comment on above: Order Comment: Reaso n for Exam HTN (hypertension);Lupus;Chronic ITP (idiopathic thrombocyto Performed By: #### C BCNO, RENAL, MG, [id number], TRAN, PROCRERAT, PTH, URIC #### [facility] [address] Hemoglobin (Bld) [Mass/Vol] 10.6 g/dL Low 11.8-15.4 [facility] Comment on above: Order Comment: Reaso n for Exam HTN (hypertension);Lupus;Chronic ITP (idiopathic thrombocyto Performed By: #### C BCNO, RENAL, MG, [id number], TRAN, PROCRERAT, PTH, URIC #### [facility] [address] MCH (RBC) [Entitic mass] 31.8 pg Normal 24.7-34.3 [facility] Comment on above: Order Comment: Reaso n for Exam HTN (hypertension);Lupus;Chronic ITP (idiopathic thrombocyto Performed By: #### C BCNO, RENAL, MG, [id number], TRAN, PROCRERAT, PTH, URIC #### [facility] [address] [place] [address] MCV (RBC) [Entitic vol] 96.6 fL Normal 80-100 F [facility] Comment on above: Order Comment: Reaso n for Exam HTN (hypertension);Lupus;Chronic ITP (idiopathic thrombocyto Performed By: #### C BCNO, RENAL, MG, [id number], TRAN, PROCRERAT, PTH, URIC #### [address] Mean Corpuscular HGB Conc 32.9 g/dL Normal 32.0-35.0 [facility] Comment on above: Order Comment: Reaso n for Exam HTN (hypertension);Lupus;Chronic ITP (idiopathic thrombocyto Performed By: #### C BCNO, RENAL, MG, [id number], TRAN, PROCRERAT, PTH, URIC #### [facility] [address] [place] [address] Platelet mean volume (Bld) [Entitic vol] 8.3 fL Normal 6.3-10.7 [facility] Comment on above: Order Comment: Reaso n for Exam HTN (hypertension);Lupus;Chronic ITP (idiopathic thrombocyto Result Comment: PERF ORMED BY: [place] [address] PATHOLOGIST STEAM DRIER TENDER IVORY BORRERO M.D. Performed By: #### C BCNO, RENAL, MG, [id number], TRAN, PROCRERAT, PTH, URIC #### [address] Platelets (Bld) [#/Vol] 161 10*3/uL Normal 150-450 [employer] Other Comment on above: Order Comment: Reaso n for Exam HTN (hypertension);Lupus;Chronic ITP (idiopathic thrombocyto Performed By: #### C BCNO, RENAL, MG, [id number], TRAN, PROCRERAT, PTH, URIC #### [address] RBC (Bld) [#/Vol] 3.34 10*6/uL Low 3.60-5.00 [employer] Other Comment on above: Order Comment: Reaso n for Exam HTN (hypertension);Lupus;Chronic ITP (idiopathic thrombocyto Performed By: #### C BCNO, RENAL, MG, [id number], TRAN, PROCRERAT, PTH, URIC #### [address] WBC (Bld) [#/Vol] 4.7 10*3/uL Normal 3.8-11.6 [facility] Comment on above: Order Comment: Reaso n for Exam HTN (hypertension);Lupus;Chronic ITP (idiopathic thrombocyto Performed By: #### C BCNO, RENAL, MG, [id number], TRAN, PROCRERAT, PTH, URIC #### [address] Magnesiumon 06-28-2023 Magnesium [Mass/Vol] 2.6015071 mg/dL Normal 1.9- 2.7 mg/dL [employer] Other Magnesium [Mass/Vol] 2.5 mg/dL Normal 1.9-2.7 [facility] Comment on above: Order Comment: Reaso n for Exam HTN (hypertension);Lupus;Chronic ITP (idiopathic thrombocyto Performed By: #### C BCNO, RENAL, MG, [id number], TRAN, PROCRERAT, PTH, URIC #### [facility] [address] [place] [id number] [facility] Parathyroid Hormone Intacton 06-28-2023 Parathyroid Hormone Intact 41.9 pg/mL Normal 12-88 pg/mL [facility] [employer] Other Parathyroid Hormone Intact 41.9 pg/mL Normal -88 [facility] Comment on above: Order Comment: Reaso n for Exam HTN (hypertension);Lupus;Chronic ITP (idiopathic thrombocyto Result Comment: PERF ORMED BY: [place] [address] PATHOLOGIST STEAM DRIER TENDER IVORY BORRERO M.D. Performed By: #### C BCNO, RENAL, MG, [id number], TRAN, PROCRERAT, PTH, URIC #### [facility] [address] [place] [phone] [facility] Protein Creat Ratio Ur Rando mon 06-28-2023 Albumin Test strip detection limit <= 20 mg/L (U) [Mass/Vol] 9 mg/dL Normal 0-9 mg/dL [facility] [employer] Other Protein Creat Ratio Ur Random 96.0 mg/dL High 11.0-20.0 mg/dL [facility] [employer] Other Protein Creat Ratio Ur Random 94 mg/g{Cre} Normal 0-200 mg/g{Cre} [facility] [employer] Other Creatinine, Urine (Random) 96.0 mg/dL High 11.0-20.0 [facility] Comment on above: Order Comment: Reaso n for Exam HTN (hypertension);Lupus;Chronic ITP (idiopathic thrombocyto Performed By: #### C BCNO #### [facility] [address] [place] [address] [facility] Protein (U) [Mass/Vol] 9 mg/dL Normal 0-9 [facility] Comment on above: Order Comment: Reaso n for Exam HTN (hypertension);Lupus;Chronic ITP (idiopathic thrombocyto Performed By: #### C BCNO #### [facility] [address] Urine Protein/Creatinine Ratio 94 mg/g{Cre} Normal 0-200 [facility] Comment on above: Order Comment: Reaso n for Exam HTN (hypertension);Lupus;Chronic ITP (idiopathic thrombocyto Result Comment: PERF ORMED BY: [place] [address] PATHOLOGIST STEAM DRIER TENDER IVORY BORRERO M.D. Performed By: #### C BCNO #### [facility] [address] Renal Function Panelon 06-28 Albumin [Mass/Vol] 3.653297 g/dL Normal 3.5-5.7 g/dL [facility] [employer] Other Calcium [Mass/Vol] 9.8397907 mg/dL Normal 8.6-10 .3 mg/dL [facility] [employer] Other CO2 [Moles/Vol] 26.35085326 mmol/L Normal 21.0-3 1.0 mmol/L [facility] [employer] Other Creatinine [Mass/Vol] 1.10033700 mg/dL Normal 0. 60-1.20 mg/dL [employer] Other Phosphate [Mass/Vol] 3.2441441 mg/dL Normal 2.5- 4.5 mg/dL [employer] [facility] [employer] Other Potassium [Moles/Vol] 4.53219511 mmol/L Normal 3 .5-5.1 mmol/L [facility] [employer] Other Albumin [Mass/Vol] 3.7 g/dL Normal 3.5-5.7 [facility] Comment on above: Order Comment: Reaso n for Exam HTN (hypertension);Lupus;Chronic ITP (idiopathic thrombocyto Performed By: #### C BCNO, RENAL, MG, [id number], TRAN, PROCRERAT, PTH, URIC #### [facility] [address] Anion gap [Moles/Vol] 10.5 mmol/L Normal 6.0-15.0 [facility] Comment on above: Order Comment: Reaso n for Exam HTN (hypertension);Lupus;Chronic ITP (idiopathic thrombocyto Performed By: #### C BCNO, RENAL, MG, [id number], TRAN, PROCRERAT, PTH, URIC #### [facility] [address] Calcium [Mass/Vol] 9.2 mg/dL Normal 8.6-10.3 [facility] Comment on above: Order Comment: Reaso n for Exam HTN (hypertension);Lupus;Chronic ITP (idiopathic thrombocyto Performed By: #### C BCNO, RENAL, MG, [id number], TRAN, PROCRERAT, PTH, URIC #### [address] Chloride [Moles/Vol] 108 mmol/L High 98-107 [employer] Other Comment on above: Order Comment: Reaso n for Exam HTN (hypertension);Lupus;Chronic ITP (idiopathic thrombocyto Performed By: #### C BCNO, RENAL, MG, [id number], TRAN, PROCRERAT, PTH, URIC #### [facility] [address] [place] [address] CO2 [Moles/Vol] 26.1 mmol/L Normal 21.0-31.0 [facility] Comment on above: Order Comment: Reaso n for Exam HTN (hypertension);Lupus;Chronic ITP (idiopathic thrombocyto Performed By: #### C BCNO, RENAL, MG, [id number], TRAN, PROCRERAT, PTH, URIC #### [facility] [address] [place] [phone] [place] Creatinine [Mass/Vol] 1.13 mg/dL Normal 0.60-1.20 [facility] Comment on above: Order Comment: Reaso n for Exam HTN (hypertension);Lupus;Chronic ITP (idiopathic thrombocyto Performed By: #### C BCNO, RENAL, MG, [id number], TRAN, PROCRERAT, PTH, URIC #### [facility] [address] [place] [phone] [place] GFR/1.73 sq M.predicted MDRD (S/P/Bld) [Vol rate/Area] 51.692 mL/min/{1.73_m2} Normal [facility] [employer] Other Comment on above: Order Comment: Reaso n for Exam HTN (hypertension);Lupus;Chronic ITP (idiopathic thrombocyto Performed By: #### C BCNO, RENAL, MG, [id number], TRAN, PROCRERAT, PTH, URIC #### [facility] [address] Glucose [Mass/Vol] 116 mg/dL High 70-100 [employer] [facility] [employer] Other Comment on above: Order Comment: Reaso n for Exam HTN (hypertension);Lupus;Chronic ITP (idiopathic thrombocyto Result Comment: [facility] Glucose Reference Range is dependent on time and content of last meal. Glucose of more than 200 mg/dL in a nonstressed, ambulatory subject supports the diagnosis of Diabetes Mellitus. ADA recommended reference range Performed By: #### C BCNO, RENAL, MG, [id number], TRAN, PROCRERAT, PTH, URIC #### [facility] [address] [place] [phone] [facility] Phosphate [Mass/Vol] 3.1 mg/dL Normal 2.5-4.5 [facility] Comment on above: Order Comment: Reaso n for Exam HTN (hypertension);Lupus;Chronic ITP (idiopathic thrombocyto Performed By: #### C BCNO, RENAL, MG, [id number], TRAN, PROCRERAT, PTH, URIC #### [facility] [address] [place] [phone] [facility] Potassium [Moles/Vol] 4.6 mmol/L Normal 3.5-5.1 [facility] Comment on above: Order Comment: Reaso n for Exam HTN (hypertension);Lupus;Chronic ITP (idiopathic thrombocyto Performed By: #### C BCNO, RENAL, MG, [id number], TRAN, PROCRERAT, PTH, URIC #### [facility] [address] Sodium [Moles/Vol] 140 mmol/L Normal 136-145 [employer] Other Comment on above: Order Comment: Reaso n for Exam HTN (hypertension);Lupus;Chronic ITP (idiopathic thrombocyto Performed By: #### C BCNO, RENAL, MG, [id number], TRAN, PROCRERAT, PTH, URIC #### [facility] [address] Urea nitrogen [Mass/Vol] 39 mg/dL High 7-25 [employer] Other Comment on above: Order Comment: Reaso n for Exam HTN (hypertension);Lupus;Chronic ITP (idiopathic thrombocyto Performed By: #### C BCNO, RENAL, MG, [id number], TRAN, PROCRERAT, PTH, URIC #### [facility] [address] [place] [phone] [facility] Uric Acidon 06-28-2023 Urate [Mass/Vol] 6.9774000 mg/dL High 2.3-6.6 mg/dL [employer] [facility] [employer] Other Urate [Mass/Vol] 6.8 mg/dL High 2.3-6.6 [facility] Comment on above: Order Comment: Reaso n for Exam HTN (hypertension);Lupus;Chronic ITP (idiopathic thrombocyto Performed By: #### C BCNO, RENAL, MG, [id number], TRAN, PROCRERAT, PTH, URIC #### [facility] [address] [place] [address] [facility] Vitamin D 25 Hydroxy Totalon 06-28-2023 Vitamin D 25 Hydroxy Total 11.8 ng/mL Low 30-100 ng/mL [employer] Other Vitamin D 25 Hydroxy Total 11.8 ng/mL Low 30-100 [facility] Comment on above: Order Comment: Reaso n for Exam HTN (hypertension);Lupus;Chronic ITP (idiopathic thrombocyto Result Comment: JENNIFER MIN D STATUS 25(OH)VITAMIN D RANGE (ng/mL) Deficient <20 Insufficient 20 to <30 Sufficient 30 to 100 Reference: Sunita MF,Adarsh NC, Ranulfo VELAZQUEZ, et al. Evaluation,treatment, and prevention of vitamin D deficiency; an Endocrine Society clinical practice guideline. JCEM. 2010; 96(7):1911-30. PERFORMED BY: [facility] [address] [facility] [address] PATHOLOGIST STEAM DRIER TENDER IVORY BORRERO M.D. Performed By: #### C BCNO #### [facility] [address] [place] [phone] [facility] CBC W Auto Differential pane l (Bld)on 06-05-2023 Basophils (Bld) [#/Vol] 10*3/uL Normal <0.11 [facility] Comment on above: Order Comment: Speci men Type: BLOOD SPECIMENOrdering Facility: [facility] Address: [address] [place] [address] Performed By: #### 5 7021-8 ####[facility] LABCLIA [id number] [place] [address] Basophils/100 WBC (Bld) 0.2 % Normal [facility] Comment on above: Order Comment: Speci men Type: BLOOD SPECIMENOrdering Facility: [facility] Address: [address] [place] [address] Performed By: #### 5 7021-8 ####[facility] LABCLIA [id number] [place] [address] Differential cell count method Nom (Bld) Auto Normal [facility] Comment on above: Order Comment: Speci men Type: BLOOD SPECIMENOrdering Facility: [facility] Address: [address] [place] [address] Performed By: #### 5 7021-8 ####[facility] LABCLIA [id number] [place] [address] Eosinophils (Bld) [#/Vol] 0.04 10*3/uL Normal <0.46 [facility] Comment on above: Order Comment: Speci men Type: BLOOD SPECIMENOrdering Facility: [facility] Address: [address] [place] [address] Performed By: #### 5 7021-8 ####[facility] LABCLIA [id number] [place] [address] Eosinophils/100 WBC (Bld) 0.9 % Normal [facility] Comment on above: Order Comment: Speci men Type: BLOOD SPECIMENOrdering Facility: [facility] Address: [address] [place] [address] Performed By: #### 5 7021-8 ####[facility] LABCLIA [id number] [place] [address] Erythrocyte distribution width (RBC) [Ratio] 14.4 % Normal 11.5-15.0 [facility] Comment on above: Order Comment: Speci men Type: BLOOD SPECIMENOrdering Facility: [facility] Address: [address] [place] [address] Performed By: #### 5 7021-8 ####[facility] LABCLIA [id number] [place] [address] Hematocrit (Bld) [Volume fraction] 34.0 % Low 36.0-46.0 [facility] Comment on above: Order Comment: Speci men Type: BLOOD SPECIMENOrdering Facility: [facility] Address: [address] [place] [address] Performed By: #### 5 7021-8 ####[facility] LABCLIA [id number] [place] [address] Hemoglobin (Bld) [Mass/Vol] 11.0 g/dL Low 11.5-15.5 [facility] Comment on above: Order Comment: Speci men Type: BLOOD SPECIMENOrdering Facility: [facility] Address: [address] [place] [address] Performed By: #### 5 7021-8 ####[facility] LABCLIA [id number] [place] [address] Immature granulocytes (Bld) [#/Vol] 10*3/uL Normal <0.10 [facility] Comment on above: Order Comment: Speci men Type: BLOOD SPECIMENOrdering Facility: [facility] Address: [address] [place] [address] Performed By: #### 5 7021-8 ####[facility] LABCLIA [id number] [place] [address] Immature granulocytes/100 WBC (Bld) 0.2 % Normal [facility] Comment on above: Order Comment: Speci men Type: BLOOD SPECIMENOrdering Facility: [facility] Address: [address] [place] [address] Performed By: #### 5 7021-8 ####[facility] LABCLIA [id number] [place] [address] Lymphocytes (Bld) [#/Vol] 2.31 10*3/uL Normal 1.00-4.00 [facility] Comment on above: Order Comment: Speci men Type: BLOOD SPECIMENOrdering Facility: [facility] Address: [address] [place] [address] Performed By: #### 5 7021-8 ####[facility] LABCLIA [id number] [place] [address] Lymphocytes/100 WBC (Bld) 49.8 % Normal [facility] Comment on above: Order Comment: Speci men Type: BLOOD SPECIMENOrdering Facility: [facility] Address: [address] [place] [address] Performed By: #### 5 7021-8 ####[facility] LABCLIA [id number] [place] [address] MCH (RBC) [Entitic mass] 31.5 pg Normal 26.0-34.0 [facility] Comment on above: Order Comment: Speci men Type: BLOOD SPECIMENOrdering Facility: [facility] Address: [address] [place] [address] Performed By: #### 5 7021-8 ####[facility] LABCLIA [id number] [place] [address] MCHC (RBC) [Mass/Vol] 32.4 g/dL Normal 30.5-36.0 [facility] Comment on above: Order Comment: Speci men Type: BLOOD SPECIMENOrdering Facility: [facility] Address: [address] [place] [address] Performed By: #### 5 7021-8 ####[facility] LABCLIA [id number] [place] [address] MCV (RBC) [Entitic vol] 97.4 fL Normal 80.0-100.0 [facility] Comment on above: Order Comment: Speci men Type: BLOOD SPECIMENOrdering Facility: [facility] Address: [address] [place] [address] Performed By: #### 5 7021-8 ####[facility] LABCLIA [id number] [place] [address] Monocytes (Bld) [#/Vol] 0.24 10*3/uL Normal <0.87 [facility] Comment on above: Order Comment: Speci men Type: BLOOD SPECIMENOrdering Facility: [facility] Address: [address] [place] [address] Performed By: #### 5 7021-8 ####[facility] LABCLIA [id number] [place] [address] Monocytes/100 WBC (Bld) 5.2 % Normal [facility] Comment on above: Order Comment: Speci men Type: BLOOD SPECIMENOrdering Facility: [facility] Address: [address] [place] [address] Performed By: #### 5 7021-8 ####[facility] LABCLIA [id number] [place] [address] Neutrophils (Bld) [#/Vol] 2.03 10*3/uL Normal 1.45-7.50 [facility] Comment on above: Order Comment: Speci men Type: BLOOD SPECIMENOrdering Facility: [facility] Address: [address] [place] [address] Performed By: #### 5 7021-8 ####[facility] LABCLIA [id number] [place] [address] Neutrophils/100 WBC (Bld) 43.7 % Normal [facility] Comment on above: Order Comment: Speci men Type: BLOOD SPECIMENOrdering Facility: [facility] Address: [address] [place] [address] Performed By: #### 5 7021-8 ####[facility] LABCLIA [id number] [place] [address] Nucleated RBC (Bld) [#/Vol] 10*3/uL Normal <0.01 [facility] Comment on above: Order Comment: Speci men Type: BLOOD SPECIMENOrdering Facility: [facility] Address: [address] [place] [address] Performed By: #### 5 7021-8 ####[facility] LABCLIA [id number] [place] [address] Nucleated RBC/100 WBC (Bld) [Ratio] 0.0 /100 WBC Normal [facility] Comment on above: Order Comment: Speci men Type: BLOOD SPECIMENOrdering Facility: [facility] Address: [address] [place] [address] Performed By: #### 5 7021-8 ####[facility] LABCLIA [id number] [place] [address] Platelet mean volume (Bld) [Entitic vol] 9.5 fL Normal 9.0-12.7 [facility] Comment on above: Order Comment: Speci men Type: BLOOD SPECIMENOrdering Facility: [facility] Address: [address] [place] [address] Performed By: #### 5 7021-8 ####[facility] LABCLIA [id number] [place] [address] Platelets (Bld) [#/Vol] 137 10*3/uL Low 150-400 [facility] Comment on above: Order Comment: Speci men Type: BLOOD SPECIMENOrdering Facility: [facility] Address: [place] [address] Performed By: #### 5 7021-8 ####[facility] LABCLIA [id number] [place] [address] RBC (Bld) [#/Vol] 3.49 10*6/uL Low 3.90-5.20 [facility] Comment on above: Order Comment: Speci men Type: BLOOD SPECIMENOrdering Facility: [facility] Address: [address] [place] [address] Performed By: #### 5 7021-8 ####[facility] LABIA [id number] [place] [address] WBC (Bld) [#/Vol] 4.64 10*3/uL Normal 3.70-11.00 [facility] Comment on above: Order Comment: Speci men Type: BLOOD SPECIMENOrdering Facility: [facility] Address: [address] [place] [address] Performed By: #### 5 7021-8 ####[facility] LABIA [id number] [place] [address] CNOVSPon 06-05-2023 CNOVS Visit (SP) Office (HEMASA) ANDREI LEO ([id number]) 1950 F Date Time Provider Department 06/05/23 10:00 AM ANA HERNANDEZ During your visit today, we recorded the following information about you: Temperature Pulse Respiration Blood pressure 97 degrees 76/minute 16/minute 152/84 Weight Height 87.3 kg 1.588 m Ana Hernandez PA-C 06/05/2023 11:06 AM Signed NAME: Andrei Leo CLINIC NO.: [id number] DATE OF SERVICE: June 05, 2023 (Mary) [...] having a mammogram and dexa scan at [facility] per her PCP. 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 Overall, she is doing well [...] a follow-up (more content not included)... Normal [facility] Comprehensive metabolic 2000 panelon 06-05-2023 Albumin [Mass/Vol] 3.9 g/dL Normal 3.9-4.9 [facility] Comment on above: Order Comment: Speci willie Type: BLOOD SPECIMENOrdering Facility: [facility] Address: [address] [place] [address] Performed By: #### 2 4323-8 ####[facility] LABCLIA [id number] [place] [address] ALP [Catalytic activity/Vol] 64 U/L Normal 34-123 [facility] Comment on above: Order Comment: Fabricio tapia Type: BLOOD SPECIMENOrdering Facility: [facility] Address: [address] [place] [address] Performed By: #### 2 4323-8 ####[facility] LABCLIA [id number] [place] [address] ALT [Catalytic activity/Vol] 20 U/L Normal 7-38 [facility] Comment on above: Order Comment: Fabricio tapia Type: BLOOD SPECIMENOrdering Facility: [facility] Address: [address] [place] [address] Performed By: #### 2 4323-8 ####[facility] LABCLIA [id number] [place] [address] Anion gap [Moles/Vol] 9 mmol/L Normal 9-18 [facility] Comment on above: Order Comment: Speci men Type: BLOOD SPECIMENOrdering Facility: [facility] Address: [address] [place] [address] Performed By: #### 2 4323-8 ####[facility] LABCLIA [id number] [place] [address] AST [Catalytic activity/Vol] 25 U/L Normal 13-35 [facility] Comment on above: Order Comment: Speci men Type: BLOOD SPECIMENOrdering Facility: [facility] Address: [address] [place] [address] Performed By: #### 2 4323-8 ####[facility] LABCLIA [id number] [place] [address] Bilirubin [Mass/Vol] 0.5 mg/dL Normal 0.2-1.3 [facility] Comment on above: Order Comment: Speci men Type: BLOOD SPECIMENOrdering Facility: [facility] Address: [address] [place] [address] Performed By: #### 2 4323-8 ####[facility] LABCLIA [id number] [place] [address] Calcium [Mass/Vol] 9.8 mg/dL Normal 8.5-10.2 [facility] Comment on above: Order Comment: Speci men Type: BLOOD SPECIMENOrdering Facility: [facility] Address: [address] [place] [address] Performed By: #### 2 4323-8 ####[facility] LABCLIA [id number] [place] [address] Chloride [Moles/Vol] 107 mmol/L High 97-105 [facility] Comment on above: Order Comment: Speci men Type: BLOOD SPECIMENOrdering Facility: [facility] Address: [address] [place] [address] Performed By: #### 2 4323-8 ####[facility] LABCLIA [id number] [place] [address] CO2 [Moles/Vol] 22 mmol/L Normal 22-30 [facility] Comment on above: Order Comment: Speci men Type: BLOOD SPECIMENOrdering Facility: [facility] Address: [address] [place] [address] Performed By: #### 2 4323-8 ####[facility] LABCLIA [id number] [place] [address] Creatinine [Mass/Vol] 1.14 mg/dL High 0.58-0.96 [facility] Comment on above: Order Comment: Speci men Type: BLOOD SPECIMENOrdering Facility: [facility] Address: [address] [place] [address] Performed By: #### 2 4323-8 ####[facility] LABCLIA [id number] [place] [address] Creatinine and Glomerular filtration rate.predicted panel (S/P/Bld) 51 mL/min/1.73m??? Low >=60 [facility] Comment on above: Order Comment: Speci men Type: BLOOD SPECIMENOrdering Facility: [facility] Address: [address] [place] [address] Result Comment: Miryam mated Glomerular Filtration Rate [...] actual GFR. Performed By: #### 2 4323-8 ####[facility] LABCLIA [id number] [place] [address] Glucose [Mass/Vol] 113 mg/dL High 74-99 [facility] Comment on above: Order Comment: Speci men Type: BLOOD SPECIMENOrdering Facility: [facility] Address: [address] [place] [address] Result Comment: The [place] [employer] (ADA) provides guidance for cutoff [...] Standards of Medical Care in Diabetes 2016, [place] [employer]. Diabetes Care. 2016.39(Suppl 1). Performed By: #### 2 4323-8 ####[facility] LABCLIA [id number] [place] [address] Potassium [Moles/Vol] 4.5 mmol/L Normal 3.7-5.1 [facility] Comment on above: Order Comment: Speci men Type: BLOOD SPECIMENOrdering Facility: [facility] Address: [address] [place] [address] Performed By: #### 2 4323-8 ####[facility] LABCLIA [id number] [place] [address] Protein [Mass/Vol] 7.5 g/dL Normal 6.3-8.0 [facility] Comment on above: Order Comment: Speci men Type: BLOOD SPECIMENOrdering Facility: [facility] Address: [address] [place] [address] Performed By: #### 2 4323-8 ####[facility] LABCLIA [id number] [place] [address] Sodium [Moles/Vol] 138 mmol/L Normal 136-144 [facility] Comment on above: Order Comment: Speci men Type: BLOOD SPECIMENOrdering Facility: [facility] Address: [address] [place] [address] Performed By: #### 2 4323-8 ####[facility] LABCLIA [id number] [place] [address] Urea nitrogen [Mass/Vol] 39 mg/dL High 7-21 [facility] Comment on above: Order Comment: Speci men Type: BLOOD SPECIMENOrdering Facility: [facility] Address: [address] [place] [address] Performed By: #### 2 4323-8 ####[facility] LABCLIA [id number] [place] [id number] Ferritin SerPl-mCncon 2022 Ferritin [Mass/Vol] 104.0 ng/mL Normal 14.7-205.1 [facility] Comment on above: Order Comment: Speci men Type: BLOOD SPECIMENOrdering Facility: [facility] Address: [address] [place] [address] Performed By: #### 2 276-4, 23592-1, 2132-03, 2284-02 ####[facility] LABCLIA [id number] [place] [address] [place] Folate SerPl-mCncon 06-05-20 Folate [Mass/Vol] 6.3 ng/mL Normal >4.7 [facility] Comment on above: Order Comment: Speci men Type: BLOOD SPECIMENOrdering Facility: [facility] Address: [address] [place] [address] Performed By: #### 2 276-4, 64064-4, 2132-03, 2284-02 ####[facility] LABCLIA [id number] [place] [address] [place] Iron and Iron binding capaci ty panelon 06-05-2023 Iron [Mass/Vol] 63 ug/dL Normal 41-186 [facility] Comment on above: Order Comment: Speci men Type: BLOOD SPECIMENOrdering Facility: [facility] Address: [address] [place] [address] Performed By: #### 2 276-4, 65732-1, 2132-03, 2284-02 ####[facility] LABCLIA [id number] [place] [id number] [place] Iron binding capacity [Mass/Vol] 344 ug/dL Normal 232-386 [facility] Comment on above: Order Comment: Speci men Type: BLOOD SPECIMENOrdering Facility: [facility] Address: [address] [place] [address] Performed By: #### 2 276-4, 82261-1, 2132-03, 8 ####[facility] LABCLIA [id number] [place] [address] [place] Iron/TIBC [Molar ratio] 18.3 % Normal 15.0-57.0 [facility] Comment on above: Order Comment: Speci men Type: BLOOD SPECIMENOrdering Facility: [facility] Address: [address] [place] [address] Performed By: #### 2 276-4, 14320-2, 2132-03, 2284-02 ####[facility] LABIA [id number] [place] [address] [place] Vit B12 [facility] 11-27-2 023 Cobalamin (Vitamin B12) [Mass/Vol] 443 pg/mL Normal 232-1245 [facility] Comment on above: Order Comment: Speci men Type: BLOOD SPECIMENOrdering Facility: [facility] Address: [address] [place] [address] Performed By: #### 2 276-4, 11323-1, 2132-03, 8 ####[facility] LABIA [id number] [place] [id number] [place] CBC W Auto Differential pane l (Bld)on 04-20-2023 Basophils (Bld) [#/Vol] 10*3/uL Normal <0.11 [facility] Comment on above: Order Comment: Speci men Type: BLOOD SPECIMENOrdering Facility: [facility] Address: [address] [place] [address] Performed By: #### 5 7021-8 ####[facility] LABCLIA [id number] [place] [address] Basophils/100 WBC (Bld) 0.2 % Normal [facility] Comment on above: Order Comment: Speci men Type: BLOOD SPECIMENOrdering Facility: [facility] Address: [address] [place] [address] Performed By: #### 5 7021-8 ####[facility] LABCLIA [id number] [place] [address] Differential cell count method Nom (Bld) Auto Normal [facility] Comment on above: Order Comment: Speci men Type: BLOOD SPECIMENOrdering Facility: [facility] Address: [address] [place] [address] Performed By: #### 5 7021-8 ####[facility] LABCLIA [id number] [place] [address] Eosinophils (Bld) [#/Vol] 0.04 10*3/uL Normal <0.46 [facility] Comment on above: Order Comment: Speci men Type: BLOOD SPECIMENOrdering Facility: [facility] Address: [address] [place] [address] Performed By: #### 5 7021-8 ####[facility] LABCLIA [id number] [place] [address] Eosinophils/100 WBC (Bld) 0.8 % Normal [facility] Comment on above: Order Comment: Speci men Type: BLOOD SPECIMENOrdering Facility: [facility] Address: [address] [place] [address] Performed By: #### 5 7021-8 ####[facility] LABCLIA [id number] [place] [address] Erythrocyte distribution width (RBC) [Ratio] 14.7 % Normal 11.5-15.0 [facility] Comment on above: Order Comment: Speci men Type: BLOOD SPECIMENOrdering Facility: [facility] Address: [address] [place] [address] Performed By: #### 5 7021-8 ####[facility] LABCLIA [id number] [place] [address] Hematocrit (Bld) [Volume fraction] 34.1 % Low 36.0-46.0 [facility] Comment on above: Order Comment: Speci men Type: BLOOD SPECIMENOrdering Facility: [facility] Address: [address] [place] [address] Performed By: #### 5 7021-8 ####[facility] LABCLIA [id number] [place] [address] Hemoglobin (Bld) [Mass/Vol] 10.9 g/dL Low 11.5-15.5 [facility] Comment on above: Order Comment: Speci men Type: BLOOD SPECIMENOrdering Facility: [facility] Address: [address] [place] [address] Performed By: #### 5 7021-8 ####[facility] LABCLIA [id number] [place] [address] Immature granulocytes (Bld) [#/Vol] 10*3/uL Normal <0.10 [facility] Comment on above: Order Comment: Speci men Type: BLOOD SPECIMENOrdering Facility: [facility] Address: [address] [place] [address] Performed By: #### 5 7021-8 ####[facility] LABCLIA [id number] [place] [address] Immature granulocytes/100 WBC (Bld) 0.4 % Normal [facility] Comment on above: Order Comment: Speci men Type: BLOOD SPECIMENOrdering Facility: [facility] Address: [address] [place] [address] Performed By: #### 5 7021-8 ####[facility] LABCLIA [id number] [place] [address] Lymphocytes (Bld) [#/Vol] 2.49 10*3/uL Normal 1.00-4.00 [facility] Comment on above: Order Comment: Speci men Type: BLOOD SPECIMENOrdering Facility: [facility] Address: [address] [place] [address] Performed By: #### 5 7021-8 ####[facility] LABCLIA [id number] [place] [address] Lymphocytes/100 WBC (Bld) 51.0 % Normal [facility] Comment on above: Order Comment: Speci men Type: BLOOD SPECIMENOrdering Facility: [facility] Address: [address] [place] [address] Performed By: #### 5 7021-8 ####[facility] LABCLIA [id number] [place] [address] MCH (RBC) [Entitic mass] 31.0 pg Normal 26.0-34.0 [facility] Comment on above: Order Comment: Speci men Type: BLOOD SPECIMENOrdering Facility: [facility] Address: [address] [place] [address] Performed By: #### 5 7021-8 ####[facility] LABCLIA [id number] [place] [address] MCHC (RBC) [Mass/Vol] 32.0 g/dL Normal 30.5-36.0 [facility] Comment on above: Order Comment: Speci men Type: BLOOD SPECIMENOrdering Facility: [facility] Address: [address] [place] [address] Performed By: #### 5 7021-8 ####[facility] LABCLIA [id number] [place] [address] MCV (RBC) [Entitic vol] 96.9 fL Normal 80.0-100.0 [facility] Comment on above: Order Comment: Speci men Type: BLOOD SPECIMENOrdering Facility: [facility] Address: [address] [place] [address] Performed By: #### 5 7021-8 ####[facility] LABCLIA [id number] [place] [address] Monocytes (Bld) [#/Vol] 0.26 10*3/uL Normal <0.87 [facility] Comment on above: Order Comment: Speci men Type: BLOOD SPECIMENOrdering Facility: [facility] Address: [address] [place] [address] Performed By: #### 5 7021-8 ####[facility] LABCLIA [id number] [place] [address] Monocytes/100 WBC (Bld) 5.3 % Normal [facility] Comment on above: Order Comment: Speci men Type: BLOOD SPECIMENOrdering Facility: [facility] Address: [address] [place] [address] Performed By: #### 5 7021-8 ####[facility] LABCLIA [id number] [place] [address] Neutrophils (Bld) [#/Vol] 2.06 10*3/uL Normal 1.45-7.50 [facility] Comment on above: Order Comment: Speci men Type: BLOOD SPECIMENOrdering Facility: [facility] Address: [address] [place] [address] Performed By: #### 5 7021-8 ####[facility] LABCLIA [id number] [place] [address] Neutrophils/100 WBC (Bld) 42.3 % Normal [facility] Comment on above: Order Comment: Speci men Type: BLOOD SPECIMENOrdering Facility: [facility] Address: [address] [place] [address] Performed By: #### 5 7021-8 ####[facility] LABIA [id number] [place] [address] Nucleated RBC (Bld) [#/Vol] 10*3/uL Normal <0.01 [facility] Comment on above: Order Comment: Speci men Type: BLOOD SPECIMENOrdering Facility: [facility] Address: [address] [place] [address] Performed By: #### 5 7021-8 ####[facility] LABCLIA [id number] [place] [address] Nucleated RBC/100 WBC (Bld) [Ratio] 0.0 /100 WBC Normal [facility] Comment on above: Order Comment: Speci men Type: BLOOD SPECIMENOrdering Facility: [facility] Address: [address] [place] [address] Performed By: #### 5 7021-8 ####[facility]IA [id number] [place] [address] Platelet mean volume (Bld) [Entitic vol] 9.3 fL Normal 9.0-12.7 [facility] Comment on above: Order Comment: Speci men Type: BLOOD SPECIMENOrdering Facility: [facility] Address: [address] [place] [address] Performed By: #### 5 7021-8 ####[facility]IA [id number] [place] [address] Platelets (Bld) [#/Vol] 127 10*3/uL Low 150-400 [facility] Comment on above: Order Comment: Speci men Type: BLOOD SPECIMENOrdering Facility: [facility] Address: [address] [place] [address] Performed By: #### 5 7021-8 ####[facility]CLIA [id number] [place] [address] RBC (Bld) [#/Vol] 3.52 10*6/uL Low 3.90-5.20 [facility] Comment on above: Order Comment: Speci men Type: BLOOD SPECIMENOrdering Facility: [facility] Address: [address] [place] [address] Performed By: #### 5 7021-8 ####[facility]CLIA [id number] [place] [address] WBC (Bld) [#/Vol] 4.88 10*3/uL Normal 3.70-11.00 [facility] Comment on above: Order Comment: Speci men Type: BLOOD SPECIMENOrdering Facility: [facility] Address: [place] [address] Performed By: #### 5 7021-8 ####[facility] LABCLIA [id number] [place] [address] CNOVSPon 04-20-2023 CNOVSP Visit (SP) Office (HEMASA) LEOANDREI GIBSON ([id number]) 1950 F Date Time Provider Department 04/20/23 10:15 AM RINKU RAMSEY During your visit today, we recorded the following information about you: Temperature Pulse Respiration Blood pressure 97.8 degrees 72/minute 18/minute 168/87 Weight Height 89 kg 1.588 m Rinku Ramsey MD 04/23/2023 4:09 PM Signed NAME: Andrei Leo [facility] NO.: [id number] DATE OF SERVICE: April 20, 2023 (Joon) Some elements in this clinic note that are critical to medical decision making have been carefully reviewed and included from a prior clinic note dated: March 09, 2023 (Joon) Additional Clinicians involved in Andrei Leo's care: [...] 08/29/2022 and then 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 Overall, she is doing well [...] Tavalisse withou (more content not included)... Normal [facility] Comprehensive metabolic 2000 panelon 04-20-2023 Albumin [Mass/Vol] 3.9 g/dL Normal 3.9-4.9 [facility] Comment on above: Order Comment: Speci men Type: BLOOD SPECIMEN [facility] Address: [address] [place] [address] Performed By: #### 2 1120-8 #### [facility] CLIA [id number] [address] [place] [address] ALP [Catalytic activity/Vol] 67 U/L Normal 34-123 [facility] Comment on above: Order Comment: Speci men Type: BLOOD SPECIMEN [facility] Address: [address] [place] [address] Performed By: #### 2 4323-8 #### [facility] CLIA [id number] [address] [place] [address] ALT [Catalytic activity/Vol] 23 U/L Normal 7-38 [facility] Comment on above: Order Comment: Speci men Type: BLOOD SPECIMEN [facility]: [facility] Address: [address] [place] [address] Performed By: #### 2 4323-8 #### [facility] CLIA [id number] [address] [place] [address] Anion gap [Moles/Vol] 11 mmol/L Normal 9-18 [facility] Comment on above: Order Comment: Speci men Type: BLOOD SPECIMEN [facility] Address: [address] [place] [address] Performed By: #### 2 4323-8 #### [facility] CLIA [id number] [address] [place] [address] AST [Catalytic activity/Vol] 38 U/L High 13-35 [facility] Comment on above: Order Comment: Speci men Type: BLOOD SPECIMEN [facility] Address: [address] [place] [address] Performed By: #### 2 4323-8 #### [facility] CLIA [id number] [address] [place] [address] Bilirubin [Mass/Vol] 0.6 mg/dL Normal 0.2-1.3 [facility] Comment on above: Order Comment: Speci men Type: BLOOD SPECIMEN [facility] Address: [address] [place] [address] Performed By: #### 2 4323-8 #### [facility] CLIA [id number] [address] [place] [address] Calcium [Mass/Vol] 10.2 mg/dL Normal 8.5-10.2 [facility] Comment on above: Order Comment: Speci men Type: BLOOD SPECIMEN [facility] Address: [address] [place] [place] [address] Performed By: #### 2 4323-8 #### [facility] CLIA [id number] [address] [place] [address] Chloride [Moles/Vol] 102 mmol/L Normal 97-105 [facility] Comment on above: Order Comment: Speci men Type: BLOOD SPECIMEN [facility] Address: [address] [place] [address] Performed By: #### 2 4323-8 #### [facility] CLIA [id number] [address] [place] [address] CO2 [Moles/Vol] 27 mmol/L Normal 22-30 [facility] Comment on above: Order Comment: Speci men Type: BLOOD SPECIMEN [facility] Address: [address] [place], [place] [address] Performed By: #### 2 4323-8 #### [facility] CLIA [id number] [address] [place] [address] Creatinine [Mass/Vol] 1.05 mg/dL High 0.58-0.96 [facility] Comment on above: Order Comment: Speci men Type: BLOOD SPECIMEN [facility] Address: [address] [address] Performed By: #### 2 4323-8 #### [facility] CLIA [id number] [address] [place] [address] Creatinine and Glomerular filtration rate.predicted panel (S/P/Bld) 57 mL/min/1.73m??? Low >=60 [facility] Comment on above: Order Comment: Fabricio tapia Type: BLOOD SPECIMEN [facility] Address: [address] [place] [id number] Result Comment: Miryam mated Glomerular Filtration Rate [...] actual GFR. Performed By: #### 2 4323-8 #### [facility] CLIA [id number] [address] [place] [address] Glucose [Mass/Vol] 134 mg/dL High 74-99 [facility] Comment on above: Order Comment: Fabricio tapia Type: BLOOD SPECIMEN [facility] Address: [address] [place], [place] [address] Result Comment: The [place] [employer] (ADA) provides guidance for cutoff [...] Standards of Medical Care in Diabetes 2016, [place] [employer]. Diabetes Care. 2016.39(Suppl 1). Performed By: #### 2 4323-8 #### [facility] CLIA [id number] [address] [place] [address] Potassium [Moles/Vol] 4.9 mmol/L Normal 3.7-5.1 [facility] Comment on above: Order Comment: Fabricio tapia Type: BLOOD SPECIMEN [facility] Address: [address] [place] [address] Performed By: #### 2 4323-8 #### [facility] CLIA [id number] [address] [place] [address] Protein [Mass/Vol] 7.4 g/dL Normal 6.3-8.0 [facility] Comment on above: Order Comment: Speci men Type: BLOOD SPECIMEN [facility] Address: [address] [place] [address] Performed By: #### 2 4323-8 #### [facility] CLIA [id number] [address] [place] [address] Sodium [Moles/Vol] 140 mmol/L Normal 136-144 [facility] Comment on above: Order Comment: Speci men Type: BLOOD SPECIMEN [facility] Address: [address] [place] [address] Performed By: #### 2 4323-8 #### [facility] CLIA [id number] [address] [place], [place] [address] Urea nitrogen [Mass/Vol] 26 mg/dL High 7-21 [facility] Comment on above: Order Comment: Speci men Type: BLOOD SPECIMEN [facility] Address: [address] [place] [address] Performed By: #### 2 4323-8 #### [facility] CLIA [id number] [address] [place] [address] LDH SerPl-cCncon 04-20-2023 LDH [Catalytic activity/Vol] 328 U/L High 135-214 [facility] Comment on above: Order Comment: Speci men Type: BLOOD SPECIMEN [facility] Address: [address] [place] [address] Performed By: #### 2 4323-8 #### [facility] CLIA [id number] [address] [place] [address] CNPVilma 04-19-2023 CNPN Telephone (HEMASA) ABEANDREI ([id number]) 1950 F Date Time Provider Department 04/19/23 [...] [1688] Primary Visit Diagnosis:Chronic ITP (idiopathic thrombocytopenia) (HCC) [D69.3] Order(s):LD LACTATE DEHYDRO [SQLD6] Order #: [id number] FUTURE CBC + DIFF [SQCBCDIF] Order #: [id number] FUTURE COMP METABOLIC PANEL [SQCMP] Order #: [id number] FUTURE Prescriptions as of 04/19/2023 - benzonatate [...] Status:Closed by RINKU RAMSEY on 04/19/23 Normal [facility] CBC W Auto Differential pane l (Bld)on 03-09-2023 Basophils (Bld) [#/Vol] 10*3/uL Normal <0.11 C [facility] Comment on above: Order Comment: Speci men Type: BLOOD SPECIMEN [facility] Address: [address] [place] [address] Performed By: #### 2 4323-8 #### [facility] CLIA [id number] [address] [place] [address] Basophils/100 WBC (Bld) 0.2 % Normal C [facility] Comment on above: Order Comment: Speci men Type: BLOOD SPECIMEN [facility] Address: [address] [place] [address] Performed By: #### 2 4323-8 #### [facility] CLIA [id number] [address] [place] [address] Differential cell count method Nom (Bld) Auto Normal [facility] Comment on above: Order Comment: Speci men Type: BLOOD SPECIMEN [facility] Address: [address] [place] [address] Performed By: #### 2 4323-8 #### [facility] CLIA [id number] [address] [place] [address] Eosinophils (Bld) [#/Vol] 0.04 10*3/uL Normal <0.46 [facility] Comment on above: Order Comment: Speci men Type: BLOOD SPECIMEN [facility] Address: [address] [place] [address] Performed By: #### 2 4323-8 #### [facility] CLIA [id number] [address] [place] [address] Eosinophils/100 WBC (Bld) 0.8 % Normal [facility] Comment on above: Order Comment: Speci men Type: BLOOD SPECIMEN [facility] Address: [address] [place] [address] Performed By: #### 2 4323-8 #### [facility] CLIA [id number] [address] [place] [address] Erythrocyte distribution width (RBC) [Ratio] 14.3 % Normal 11.5-15.0 [facility] Comment on above: Order Comment: Speci men Type: BLOOD SPECIMEN [facility] Address: [address] [place] [address] Performed By: #### 2 4323-8 #### [facility] CLIA [id number] [address] [place] [address] Hematocrit (Bld) [Volume fraction] 34.9 % Low 36.0-46.0 [facility] Comment on above: Order Comment: Speci men Type: BLOOD SPECIMEN [facility] Address: [address] [place] [address] Performed By: #### 2 4323-8 #### [facility] CLIA [id number] [address] [place] [address] Hemoglobin (Bld) [Mass/Vol] 11.1 g/dL Low 11.5-15.5 [facility] Comment on above: Order Comment: Speci men Type: BLOOD SPECIMEN [facility] Address: [address] [place] [address] Performed By: #### 2 4323-8 #### [facility] CLIA [id number] [address] [place] [address] Immature granulocytes (Bld) [#/Vol] 10*3/uL Normal <0.10 [facility] Comment on above: Order Comment: Speci men Type: BLOOD SPECIMEN [facility] Address: [address] [place] [address] Performed By: #### 2 4323-8 #### [facility] CLIA [id number] [address] [place] [address] Immature granulocytes/100 WBC (Bld) 0.2 % Normal [facility] Comment on above: Order Comment: Speci men Type: BLOOD SPECIMEN [facility] Address: [address] [place] [address] Performed By: #### 2 4323-8 #### [facility] CLIA [id number] [address] [place] [address]82 Lymphocytes (Bld) [#/Vol] 2.36 10*3/uL Normal 1.00-4.00 [facility] Comment on above: Order Comment: Speci men Type: BLOOD SPECIMEN [facility] Address: [address] [place] [address] Performed By: #### 2 4323-8 #### [facility] CLIA [id number] [address] [place] [address]58 Lymphocytes/100 WBC (Bld) 49.2 % Normal [facility] Comment on above: Order Comment: Speci men Type: BLOOD SPECIMEN [facility] Address: [address] [place] [address] Performed By: #### 2 4323-8 #### [facility] CLIA [id number] [address] [place] [address]68 MCH (RBC) [Entitic mass] 30.6 pg Normal 26.0-34.0 [facility] Comment on above: Order Comment: Speci men Type: BLOOD SPECIMEN [facility] Address: [address] [place] [address] Performed By: #### 2 4323-8 #### [facility] CLIA [id number] [address] [place] [address]45 MCHC (RBC) [Mass/Vol] 31.8 g/dL Normal 30.5-36.0 [facility] Comment on above: Order Comment: Speci men Type: BLOOD SPECIMEN [facility] Address: [address] [place] [address] Performed By: #### 2 4323-8 #### [facility] CLIA [id number] [address] [place] [address] MCV (RBC) [Entitic vol] 96.1 fL Normal 80.0-100.0 C [facility] Comment on above: Order Comment: Speci men Type: BLOOD SPECIMEN [facility] Address: [address] [place] [address] Performed By: #### 2 4323-8 #### [facility] CLIA [id number] [address] [place] [address]68 Monocytes (Bld) [#/Vol] 0.22 10*3/uL Normal <0.87 [facility] Comment on above: Order Comment: Speci men Type: BLOOD SPECIMEN [facility]: [facility] Address: [address] [place] [address] Performed By: #### 2 4323-8 #### [facility] CLIA [id number] [address] [place] [address]73 Monocytes/100 WBC (Bld) 4.6 % Normal C [facility] Comment on above: Order Comment: Speci men Type: BLOOD SPECIMEN [facility] Address: [address] [place] [address] Performed By: #### 2 4323-8 #### [facility] CLIA [id number] [address] [place] [address]2013 Neutrophils (Bld) [#/Vol] 2.16 10*3/uL Normal 1.45-7.50 [facility] Comment on above: Order Comment: Speci men Type: BLOOD SPECIMEN [facility] Address: [address] [place] [address] Performed By: #### 2 4323-8 #### [facility] CLIA [id number] [address] [place] [address] Neutrophils/100 WBC (Bld) 45.0 % Normal [facility] Comment on above: Order Comment: Speci men Type: BLOOD SPECIMEN [facility] Address: [address] [place] [address] Performed By: #### 2 4323-8 #### [facility] CLIA [id number] [address] [place] [address]2375 Nucleated RBC (Bld) [#/Vol] 10*3/uL Normal <0.01 [facility] Comment on above: Order Comment: Speci men Type: BLOOD SPECIMEN [facility] Address: [address] [place] [address] Performed By: #### 2 4323-8 #### [facility] CLIA [id number] [address] [place] [address] 10081 Nucleated RBC/100 WBC (Bld) [Ratio] 0.0 /100 WBC Normal [facility] Comment on above: Order Comment: Speci men Type: BLOOD SPECIMEN [facility] Address: [address] [place] [address] Performed By: #### 2 4323-8 #### [facility] CLIA [id number] [address] [place] [address] Platelet mean volume (Bld) [Entitic vol] 9.8 fL Normal 9.0-12.7 [facility] Comment on above: Order Comment: Speci men Type: BLOOD SPECIMEN [facility] Address: [address] [place] [address] Performed By: #### 2 4323-8 #### [facility] CLIA [id number] [address] [place] [address]1847 Platelets (Bld) [#/Vol] 110 10*3/uL Low 150-400 [facility] Comment on above: Order Comment: Speci men Type: BLOOD SPECIMEN [facility] Address: [address] [place], [place] [address] Performed By: #### 2 4323-8 #### [facility] CLIA [id number] [address] [place] [address]96 RBC (Bld) [#/Vol] 3.63 10*6/uL Low 3.90-5.20 [facility] Comment on above: Order Comment: Speci men Type: BLOOD SPECIMEN [facility] Address: [address] [place], [place] [address] Performed By: #### 2 4323-8 #### [facility] CLIA [id number] [address] [place] [address]1987 WBC (Bld) [#/Vol] 4.80 10*3/uL Normal 3.70-11.00 [facility] Comment on above: Order Comment: Speci men Type: BLOOD SPECIMEN [facility] Address: [address] [place], [place] [address] Performed By: #### 2 4323-8 #### [facility] CLIA [id number] [address] [place] [address]700 CNOVSPon 03-09-2023 CNOVS Visit (SP) Office (HEMASA) ANDREI LEO ([id number]) 1950 F Date Time Provider Department 03/09/23 2:30 PM RINKU RAMSEY During your visit today, we recorded the following information about you: Temperature Pulse Respiration Blood pressure 97.6 degrees 71/minute 16/minute 143/76 Weight Height 88.3 kg 1.588 m Rinku Ramsey MD 03/13/2023 2:11 PM Signed NAME: Andrei Leo NO.: [id number] DATE OF SERVICE: March 09, 2023 (Joon) Some elements in this clinic note that are critical to medical decision making have been carefully reviewed and included from a prior clinic note dated: January 26, 2023 (Joon) Additional Clinicians involved in Andrei Leo's care: [...] 08/29/2022 and then 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 Overall, she is doing well [...] or concerns. 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 Seems to bruise more easily with blood draws. Labs are stable. Plts 119k, hgb 11.6 Tolerating Tavalisse without difficulty however, LFT will need to be monitored as they are slightly increased. Got back from [place] and saw her sisters and had a nice t (more content not included)... Normal [facility] Comprehensive metabolic 2000 panelon 03-09-2023 Albumin [Mass/Vol] 4.0 g/dL Normal 3.9-4.9 [facility] Comment on above: Order Comment: Speci men Type: BLOOD SPECIMENOrdering Facility: [facility] Address: [address] [place] [address] Performed By: #### 2 4323-8 ####[facility] [id number] [place] [address] ALP [Catalytic activity/Vol] 75 U/L Normal 34-123 [facility] Comment on above: Order Comment: Speci men Type: BLOOD SPECIMENOrdering Facility: [facility] Address: [address] [place] [address] Performed By: #### 2 4323-8 ####[facility] [id number] [place] [address] ALT [Catalytic activity/Vol] 43 U/L High 7-38 [facility] Comment on above: Order Comment: Speci men Type: BLOOD SPECIMENOrdering Facility: [facility] Address: [address] [place] [address] Performed By: #### 2 4323-8 ####[facility] [id number] [place] [address] Anion gap [Moles/Vol] 7 mmol/L Low 9-18 [facility] Comment on above: Order Comment: Speci men Type: BLOOD SPECIMENOrdering Facility: [facility] Address: [address] [place] [address] Performed By: #### 2 4323-8 ####[facility] [id number] [place] [address] AST [Catalytic activity/Vol] 54 U/L High 13-35 [facility] Comment on above: Order Comment: Speci men Type: BLOOD SPECIMENOrdering Facility: [facility] Address: [address] [place] [address] Performed By: #### 2 4323-8 ####[facility] [id number] [place] [address] Bilirubin [Mass/Vol] 0.6 mg/dL Normal 0.2-1.3 [facility] Comment on above: Order Comment: Speci men Type: BLOOD SPECIMENOrdering Facility: [facility] Address: [address] [place] [address] Performed By: #### 2 4323-8 ####[facility] [id number] [place] [address] Calcium [Mass/Vol] 9.3 mg/dL Normal 8.5-10.2 [facility] Comment on above: Order Comment: Speci men Type: BLOOD SPECIMENOrdering Facility: [facility] Address: [address] [place] [address] Performed By: #### 2 4323-8 ####[facility] [id number] [place] [address] Chloride [Moles/Vol] 106 mmol/L High 97-105 [facility] Comment on above: Order Comment: Speci men Type: BLOOD SPECIMENOrdering Facility: [facility] Address: [address] [place], [place] [address] Performed By: #### 2 4323-8 ####[facility] [id number] [place] [address] CO2 [Moles/Vol] 25 mmol/L Normal 22-30 [facility] Comment on above: Order Comment: Speci men Type: BLOOD SPECIMENOrdering Facility: [facility] Address: [address] [address] Performed By: #### 2 4323-8 ####[facility] [id number] [place] [address] Creatinine [Mass/Vol] 1.19 mg/dL High 0.58-0.96 [facility] Comment on above: Order Comment: Speci men Type: BLOOD SPECIMENOrdering Facility: [facility] Address: [address] [place] [address] Performed By: #### 2 4323-8 ####[facility] [id number] [place] [address] Creatinine and Glomerular filtration rate.predicted panel (S/P/Bld) 49 mL/min/1.73m??? Low >=60 [facility] Comment on above: Order Comment: Speci men Type: BLOOD SPECIMENOrdering Facility: [facility] Address: [address] [address] Result Comment: Miryam mated Glomerular Filtration Rate [...] actual GFR. Performed By: #### 2 4323-8 ####[facility] [id number] [place] [address] Glucose [Mass/Vol] 107 mg/dL High 74-99 [facility] Comment on above: Order Comment: Speci men Type: BLOOD SPECIMENOrdering Facility: [facility] Address: [address] [address] Result Comment: The [place] [employer] (ADA) provides guidance for cutoff [...] Standards of Medical Care in Diabetes 2016, [place] [employer]. Diabetes Care. 2016.39(Suppl 1). Performed By: #### 2 4323-8 ####[facility] [id number] [place] [address] Potassium [Moles/Vol] 4.6 mmol/L Normal 3.7-5.1 [facility] Comment on above: Order Comment: Speci men Type: BLOOD SPECIMENOrdering Facility: [facility] Address: [address] [place] [address] Performed By: #### 2 4323-8 ####[facility] [id number] [place] [address] Protein [Mass/Vol] 7.5 g/dL Normal 6.3-8.0 [facility] Comment on above: Order Comment: Speci men Type: BLOOD SPECIMENOrdering Facility: [facility] Address: [address] [place] [address] Performed By: #### 2 4323-8 ####[facility]CLIA [id number] [place] [address] Sodium [Moles/Vol] 138 mmol/L Normal 136-144 [facility] Comment on above: Order Comment: Speci men Type: BLOOD SPECIMENOrdering Facility: [facility] Address: [address] [place] [address] Performed By: #### 2 4323-8 ####[facility] [id number] [place] [address] Urea nitrogen [Mass/Vol] 25 mg/dL High 7-21 [facility] Comment on above: Order Comment: Speci men Type: BLOOD SPECIMENOrdering Facility: [facility] Address: [address] [place] [address] Performed By: #### 2 4323-8 ####[facility] [id number] [place] [address] CBC W Auto Differential pane l (Bld)on 01-26-2023 Basophils (Bld) [#/Vol] 10*3/uL Normal <0.11 [facility] Comment on above: Order Comment: Speci men Type: BLOOD SPECIMEN [facility] Address: [address] [id number] Performed By: #### 2 4323-8 #### [facility] CLIA [id number] [address] [place] [address] Basophils/100 WBC (Bld) 0.4 % Normal C [facility] Comment on above: Order Comment: Speci men Type: BLOOD SPECIMEN [facility] Address: [address] [place] [address] Performed By: #### 2 4323-8 #### [facility] CLIA [id number] [address] [place] [address] Differential cell count method Nom (Bld) Auto Normal [facility] Comment on above: Order Comment: Speci men Type: BLOOD SPECIMEN [facility]: [facility] Address: [address] [place] [address] Performed By: #### 2 4323-8 #### [facility] CLIA [id number] [address] [place] [address] Eosinophils (Bld) [#/Vol] 0.03 10*3/uL Normal <0.46 [facility] Comment on above: Order Comment: Speci men Type: BLOOD SPECIMEN [facility]: [facility] Address: [address] [place] [address] Performed By: #### 2 4323-8 #### [facility] CLIA [id number] [address] [place] [address] Eosinophils/100 WBC (Bld) 0.6 % Normal [facility] Comment on above: Order Comment: Speci men Type: BLOOD SPECIMEN [facility]: [facility] Address: [address] [place], [place] [address] Performed By: #### 2 4323-8 #### [facility] CLIA [id number] [address] [place] [address] Erythrocyte distribution width (RBC) [Ratio] 15.2 % High 11.5-15.0 [facility] Comment on above: Order Comment: Speci men Type: BLOOD SPECIMEN [facility]ing [facility]: [facility] Address: [address] [place] [address] Performed By: #### 2 4323-8 #### [facility] CLIA [id number] [address] [place] [address] Hematocrit (Bld) [Volume fraction] 36.8 % Normal 36.0-46.0 [facility] Comment on above: Order Comment: Speci men Type: BLOOD SPECIMEN [facility]: [facility] Address: [address] [place] [address] Performed By: #### 2 4323-8 #### [facility] CLIA [id number] [address] [place] [address] Hemoglobin (Bld) [Mass/Vol] 11.4 g/dL Low 11.5-15.5 [facility] Comment on above: Order Comment: Speci men Type: BLOOD SPECIMEN [facility]ing [facility]: [facility] Address: [address] [place] [address] Performed By: #### 2 4323-8 #### [facility] CLIA [id number] [address] [place] [address] Immature granulocytes (Bld) [#/Vol] 10*3/uL Normal <0.10 [facility] Comment on above: Order Comment: Speci men Type: BLOOD SPECIMEN [facility] Address: [address] [place] [address] Performed By: #### 2 4323-8 #### [facility] CLIA [id number] [address] [place] [address] Immature granulocytes/100 WBC (Bld) 0.2 % Normal [facility] Comment on above: Order Comment: Speci men Type: BLOOD SPECIMEN [facility] Address: [address] [place] [address] Performed By: #### 2 4323-8 #### [facility] CLIA [id number] [address] [place] [address] Lymphocytes (Bld) [#/Vol] 2.71 10*3/uL Normal 1.00-4.00 [facility] Comment on above: Order Comment: Speci men Type: BLOOD SPECIMEN [facility] Address: [address] [place] [address] Performed By: #### 2 4323-8 #### [facility] CLIA [id number] [address] [place] [address] 61698 Lymphocytes/100 WBC (Bld) 50.5 % Normal [facility] Comment on above: Order Comment: Speci men Type: BLOOD SPECIMEN [facility] Address: [address] [place] [address] Performed By: #### 2 4323-8 #### [facility] CLIA [id number] [address] [place] [address] 28766 MCH (RBC) [Entitic mass] 30.2 pg Normal 26.0-34.0 [facility] Comment on above: Order Comment: Speci men Type: BLOOD SPECIMEN [facility] Address: [address] [place] [address] Performed By: #### 2 4323-8 #### [facility] CLIA [id number] [address] [place] [address]77 MCHC (RBC) [Mass/Vol] 31.0 g/dL Normal 30.5-36.0 [facility] Comment on above: Order Comment: Speci men Type: BLOOD SPECIMEN [facility] Address: [address] [place] [address] Performed By: #### 2 4323-8 #### [facility] CLIA [id number] [address] [place] [address] MCV (RBC) [Entitic vol] 97.4 fL Normal 80.0-100.0 [facility] Comment on above: Order Comment: Speci men Type: BLOOD SPECIMEN [facility]: [facility] Address: [address] [place] [address] Performed By: #### 2 4323-8 #### [facility] CLIA [id number] [address] [place] [address]1271 Monocytes (Bld) [#/Vol] 0.28 10*3/uL Normal <0.87 [facility] Comment on above: Order Comment: Speci men Type: BLOOD SPECIMEN [facility] Address: [address] [place] [address] Performed By: #### 2 4323-8 #### [facility] CLIA [id number] [address] [place] [address]1995 Monocytes/100 WBC (Bld) 5.2 % Normal C [facility] Comment on above: Order Comment: Speci men Type: BLOOD SPECIMEN [facility] Address: [address] [place] [address] Performed By: #### 2 4323-8 #### [facility] CLIA [id number] [address] [place] [address]497 Neutrophils (Bld) [#/Vol] 2.32 10*3/uL Normal 1.45-7.50 [facility] Comment on above: Order Comment: Speci men Type: BLOOD SPECIMEN [facility] Address: [address] [place] [address] Performed By: #### 2 4323-8 #### [facility] CLIA [id number] [address] [place] [address] 64645 Neutrophils/100 WBC (Bld) 43.1 % Normal [facility] Comment on above: Order Comment: Speci men Type: BLOOD SPECIMEN [facility] Address: [address] [place] [address] Performed By: #### 2 4323-8 #### [facility] CLIA [id number] [address] [place] [address] Nucleated RBC (Bld) [#/Vol] 10*3/uL Normal <0.01 [facility] Comment on above: Order Comment: Speci men Type: BLOOD SPECIMEN [facility] Address: [address] [place] [address] Performed By: #### 2 4323-8 #### [facility] CLIA [id number] [address] [place] [address] 94151 Nucleated RBC/100 WBC (Bld) [Ratio] 0.0 /100 WBC Normal [facility] Comment on above: Order Comment: Speci men Type: BLOOD SPECIMEN [facility] Address: [address] [place] [address] Performed By: #### 2 4323-8 #### [facility] CLIA [id number] [address] [place] [address]0810 Platelet mean volume (Bld) [Entitic vol] 10.1 fL Normal 9.0-12.7 [facility] Comment on above: Order Comment: Speci men Type: BLOOD SPECIMEN [facility] Address: [address] [place] [address] Performed By: #### 2 4323-8 #### [facility] CLIA [id number] [address] [place] [address] 01047 Platelets (Bld) [#/Vol] 122 10*3/uL Low 150-400 [facility] Comment on above: Order Comment: Speci men Type: BLOOD SPECIMEN [facility] Address: [address] [place] [address] Performed By: #### 2 4323-8 #### [facility] CLIA [id number] [address] [place] [address] 73710 RBC (Bld) [#/Vol] 3.78 10*6/uL Low 3.90-5.20 [facility] Comment on above: Order Comment: Speci men Type: BLOOD SPECIMEN [facility] Address: [address] [place] [address] Performed By: #### 2 4323-8 #### [facility] CLIA [id number] [address] [place] [address] 78844 WBC (Bld) [#/Vol] 5.37 10*3/uL Normal 3.70-11.00 [facility] Comment on above: Order Comment: Speci men Type: BLOOD SPECIMEN [facility] Address: [address] [place] [address] Performed By: #### 2 4323-8 #### [facility] CLIA [id number] [address] [place] [address] 74288 CNOVSPon 01-26-2023 CNOVSP Visit (SP) Office (HEMAS[place]) ANDREI LEO ([id number]) 1950 F Date Time Provider Department 01/26/23 2:45 PM RINKU RAMSEY During your visit today, we recorded the following information about you: Temperature Pulse Respiration Blood pressure 97.6 degrees 75/minute 18/minute 147/77 Weight Height 89.1 kg 1.588 m Rinku Ramsey MD 01/26/2023 3:16 PM Signed NAME: Andrei Leo CLINIC NO.: [id number] DATE OF SERVICE: January 26, 2023 (Joon) Some elements in this clinic note that are critical to medical decision making have been carefully reviewed and included from a prior clinic note dated: December 15, 2022 (Joon) Additional Clinicians involved in Andrei Leo's care: [...] platelets 119 Updated Visit, September 15, 2022: Anderi continues to do very well. 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 Overall, she is doing well [...] they are slightly increased. Got back from [place] and saw her sisters and had a nice trip with her of 54 yrs. Updated Visit, February 11, 2022: Andrei Leo returns for scheduled follow-up. She remains on Tavalisse 100 mg twice daily and is tolerating it well. She den (more content not included)... Normal [facility] Comprehensive metabolic 2000 panelon 01-26-2023 Albumin [Mass/Vol] 3.9 g/dL Normal 3.9-4.9 [facility] Comment on above: Order Comment: Speci men Type: BLOOD SPECIMEN [facility] Address: [address] [place] [address] Performed By: #### 2 4323-8 #### [facility] CLIA [id number] [address] [place] [address]1928 ALP [Catalytic activity/Vol] 80 U/L Normal 34-123 [facility] Comment on above: Order Comment: Speci men Type: BLOOD SPECIMEN [facility] Address: [address] [place] [address] Performed By: #### 2 4323-8 #### [facility] CLIA [id number] [address] [place] [address]6979 ALT [Catalytic activity/Vol] 46 U/L High 7-38 [facility] Comment on above: Order Comment: Speci men Type: BLOOD SPECIMEN [facility] Address: [address] [place] [address] Performed By: #### 2 4323-8 #### [facility] CLIA [id number] [address] [place] [address] 93895 Anion gap [Moles/Vol] 7 mmol/L Low 9-18 [facility] Comment on above: Order Comment: Speci men Type: BLOOD SPECIMEN [facility] Address: [address] [place] [address] Performed By: #### 2 4323-8 #### [facility] CLIA [id number] [address] [place] [address] 49741 AST [Catalytic activity/Vol] 75 U/L High 13-35 [facility] Comment on above: Order Comment: Speci men Type: BLOOD SPECIMEN [facility] Address: [address] [place] [address] Performed By: #### 2 4323-8 #### [facility] CLIA [id number] [address] [place] [address] Bilirubin [Mass/Vol] 0.8 mg/dL Normal 0.2-1.3 [facility] Comment on above: Order Comment: Speci men Type: BLOOD SPECIMEN [facility] Address: [address] [place] [address] Performed By: #### 2 4323-8 #### [facility] CLIA [id number] [address] [place] [address] 73771 Calcium [Mass/Vol] 9.5 mg/dL Normal 8.5-10.2 [facility] Comment on above: Order Comment: Speci men Type: BLOOD SPECIMEN [facility] Address: [address] [place] [address] Performed By: #### 2 4323-8 #### [facility] CLIA [id number] [address] [place] [address]3884 Chloride [Moles/Vol] 102 mmol/L Normal 97-105 [facility] Comment on above: Order Comment: Speci men Type: BLOOD SPECIMEN [facility] Address: [address] [place] [address] Performed By: #### 2 4323-8 #### [facility] CLIA [id number] [address] [place] [address] CO2 [Moles/Vol] 29 mmol/L Normal 22-30 [facility] Comment on above: Order Comment: Speci men Type: BLOOD SPECIMEN [facility] Address: [address] [place] [address] Performed By: #### 2 4323-8 #### [facility] CLIA [id number] [address] [place] [address] Creatinine [Mass/Vol] 0.97 mg/dL High 0.58-0.96 [facility] Comment on above: Order Comment: Fabricio tapia Type: BLOOD SPECIMEN [facility] Address: [address] [place] [address] Performed By: #### 2 4323-8 #### [facility] CLIA [id number] [address] [place] [address]9027 ESTIMATED GLOMERULAR FILTRATION RATE 62 mL/min/1.73m??? Normal >=60 [facility] Comment on above: Order Comment: Fabricio tapia Type: BLOOD SPECIMEN [facility] Address: [address] [place] [address] Result Comment: Miryam mated Glomerular Filtration Rate [...] actual GFR. Performed By: #### 2 4323-8 #### [facility] CLIA [id number] [address] [place] [address] 51877 Glucose [Mass/Vol] 103 mg/dL High 74-99 [facility] Comment on above: Order Comment: Fabricio tapia Type: BLOOD SPECIMEN [facility] Address: [address] [place] [address] Result Comment: The [place] [employer] (ADA) provides guidance for cutoff [...] Standards of Medical Care in Diabetes 2016, [place] [employer]. Diabetes Care. 2016.39(Suppl 1). Performed By: #### 2 4323-8 #### [facility] CLIA [id number] [address] [place] [address] 79779 Potassium [Moles/Vol] 4.2 mmol/L Normal 3.7-5.1 [facility] Comment on above: Order Comment: Speci men Type: BLOOD SPECIMEN [facility] Address: [address] [place] [address] Performed By: #### 2 4323-8 #### [facility] CLIA [id number] [address] [place] [address] 20202 Protein [Mass/Vol] 7.7 g/dL Normal 6.3-8.0 [facility] Comment on above: Order Comment: Speci men Type: BLOOD SPECIMEN [facility] Address: [address] [place] [address] Performed By: #### 2 4323-8 #### [facility] CLIA [id number] [address] [place] [address] 24239 Sodium [Moles/Vol] 138 mmol/L Normal 136-144 [facility] Comment on above: Order Comment: Speci men Type: BLOOD SPECIMEN [facility] Address: [address] [place] [address] Performed By: #### 2 4323-8 #### [facility] CLIA [id number] [address] [place] [address] 12498 Urea nitrogen [Mass/Vol] 24 mg/dL High 7-21 [facility] Comment on above: Order Comment: Speci men Type: BLOOD SPECIMEN [facility] Address: [address] [place] [address] Performed By: #### 2 4323-8 #### [facility] CLIA [id number] [address] [place] [address] 93608 CBC W Auto Differential pane l (Bld)on 06-08-2023 Basophils (Bld) [#/Vol] 10*3/uL Normal <0.11 [facility] Comment on above: Order Comment: Speci men Type: BLOOD SPECIMENOrdering Facility: [facility] Address: [address] [address] Performed By: #### 5 7021-8 ####[facility] [id number] [place] [address] Basophils/100 WBC (Bld) 0.2 % Normal [facility] Comment on above: Order Comment: Speci men Type: BLOOD SPECIMENOrdering Facility: [facility] Address: [address] [place] [address] Performed By: #### 5 7021-8 ####[facility] [id number] [place] [address] Differential cell count method Nom (Bld) Auto Normal [facility] Comment on above: Order Comment: Speci men Type: BLOOD SPECIMENOrdering Facility: [facility] Address: [address] [place] [address] Performed By: #### 5 7021-8 ####[facility] [id number] [place] [address] Eosinophils (Bld) [#/Vol] 10*3/uL Normal <0.46 [facility] Comment on above: Order Comment: Speci men Type: BLOOD SPECIMENOrdering Facility: [facility] Address: [address] [place] [address] Performed By: #### 5 7021-8 ####[facility] [id number] [place] [address] Eosinophils/100 WBC (Bld) 0.5 % Normal [facility] Comment on above: Order Comment: Speci men Type: BLOOD SPECIMENOrdering Facility: [facility] Address: [address] [place] [address] Performed By: #### 5 7021-8 ####[facility] [id number] [place] [address] Erythrocyte distribution width (RBC) [Ratio] 14.6 % Normal 11.5-15.0 [facility] Comment on above: Order Comment: Speci men Type: BLOOD SPECIMENOrdering Facility: [facility] Address: [address] [place] [address] Performed By: #### 5 7021-8 ####[facility] [id number] [place] [address] Hematocrit (Bld) [Volume fraction] 35.2 % Low 36.0-46.0 [facility] Comment on above: Order Comment: Speci men Type: BLOOD SPECIMENOrdering Facility: [facility] Address: [address] [place] [address] Performed By: #### 5 7021-8 ####[facility] [id number] [place] [address] Hemoglobin (Bld) [Mass/Vol] 11.2 g/dL Low 11.5-15.5 [facility] Comment on above: Order Comment: Speci men Type: BLOOD SPECIMENOrdering Facility: [facility] Address: [address] [place] [address] Performed By: #### 5 7021-8 ####[facility] [id number] [place] [address] Immature granulocytes (Bld) [#/Vol] 10*3/uL Normal <0.10 [facility] Comment on above: Order Comment: Speci men Type: BLOOD SPECIMENOrdering Facility: [facility] Address: [address] [place] [address] Performed By: #### 5 7021-8 ####[facility] [id number] [place] [address] Immature granulocytes/100 WBC (Bld) 0.2 % Normal [facility] Comment on above: Order Comment: Speci men Type: BLOOD SPECIMENOrdering Facility: [facility] Address: [address] [address] Performed By: #### 5 7021-8 ####[facility] [id number] [place] [address] Lymphocytes (Bld) [#/Vol] 2.22 10*3/uL Normal 1.00-4.00 [facility] Comment on above: Order Comment: Speci men Type: BLOOD SPECIMENOrdering Facility: [facility] Address: [address] [place] [address] Performed By: #### 5 7021-8 ####[facility] [id number] [place] [address] Lymphocytes/100 WBC (Bld) 51.0 % Normal [facility] Comment on above: Order Comment: Speci men Type: BLOOD SPECIMENOrdering Facility: [facility] Address: [address] [place] [address] Performed By: #### 5 7021-8 ####[facility] [id number] [place] [address] MCH (RBC) [Entitic mass] 30.0 pg Normal 26.0-34.0 [facility] Comment on above: Order Comment: Speci men Type: BLOOD SPECIMENOrdering Facility: [facility] Address: [address] [place] [address] Performed By: #### 5 7021-8 ####[facility] [id number] [place] [address] MCHC (RBC) [Mass/Vol] 31.8 g/dL Normal 30.5-36.0 [facility] Comment on above: Order Comment: Speci men Type: BLOOD SPECIMENOrdering Facility: [facility] Address: [address] [place] [address] Performed By: #### 5 7021-8 ####[facility] [id number] [place] [address] MCV (RBC) [Entitic vol] 94.4 fL Normal 80.0-100.0 [facility] Comment on above: Order Comment: Speci men Type: BLOOD SPECIMENOrdering Facility: [facility] Address: [address] [place] [address] Performed By: #### 5 7021-8 ####[facility] [id number] [place] [address] Monocytes (Bld) [#/Vol] 0.20 10*3/uL Normal <0.87 [facility] Comment on above: Order Comment: Speci men Type: BLOOD SPECIMENOrdering Facility: [facility] Address: [address] [place] [address] Performed By: #### 5 7021-8 ####[facility] [id number] [place] [address] Monocytes/100 WBC (Bld) 4.6 % Normal [facility] Comment on above: Order Comment: Speci men Type: BLOOD SPECIMENOrdering Facility: [facility] Address: [address] [place] [address] Performed By: #### 5 7021-8 ####[facility] [id number] [place] [address] Neutrophils (Bld) [#/Vol] 1.89 10*3/uL Normal 1.45-7.50 [facility] Comment on above: Order Comment: Speci men Type: BLOOD SPECIMENOrdering Facility: [facility] Address: [address] [place] [address] Performed By: #### 5 7021-8 ####[facility] [id number] [place] [address] Neutrophils/100 WBC (Bld) 43.5 % Normal [facility] Comment on above: Order Comment: Speci men Type: BLOOD SPECIMENOrdering Facility: [facility] Address: [facility] [place] [address] Performed By: #### 5 7021-8 ####[facility] [id number] [place] [address] Nucleated RBC (Bld) [#/Vol] 10*3/uL Normal <0.01 [facility] Comment on above: Order Comment: Speci men Type: BLOOD SPECIMENOrdering Facility: [facility] Address: [address] [address] Performed By: #### 5 7021-8 ####[facility] [id number] [place] [address] Nucleated RBC/100 WBC (Bld) [Ratio] 0.0 /100 WBC Normal [facility] Comment on above: Order Comment: Speci men Type: BLOOD SPECIMENOrdering Facility: [facility] Address: [address] [place] [address] Performed By: #### 5 7021-8 ####[facility]CL[facility] [id number] [place] [address] Platelet mean volume (Bld) [Entitic vol] 9.7 fL Normal 9.0-12.7 [facility] Comment on above: Order Comment: Speci men Type: BLOOD SPECIMENOrdering Facility: [facility] Address: [address] [place] [address] Performed By: #### 5 7021-8 ####[facility]CL[facility] [id number] [place] [address] Platelets (Bld) [#/Vol] 113 10*3/uL Low 150-400 [facility] Comment on above: Order Comment: Speci men Type: BLOOD SPECIMENOrdering Facility: [facility] Address: [address] [place] [address] Performed By: #### 5 7021-8 ####[facility]CLIA [id number] [place] [address] RBC (Bld) [#/Vol] 3.73 10*6/uL Low 3.90-5.20 [facility] Comment on above: Order Comment: Speci men Type: BLOOD SPECIMENOrdering Facility: [facility] Address: [address] [place], [place] [id number] Performed By: #### 5 7021-8 ####[facility]CLIA [id number] [place] [address] WBC (Bld) [#/Vol] 4.35 10*3/uL Normal 3.70-11.00 [facility] Comment on above: Order Comment: Speci men Type: BLOOD SPECIMENOrdering Facility: [facility] Address: [address] [place] [address] Performed By: #### 5 7021-8 ####[facility]CLIA [id number] [place] [address] CNOVSPon 12-15-2022 CNOVSP Visit (SP) Office ([place]) ANDREI LEO ([id number]) 1950 F Date Time Provider Department 12/15/22 2:00 PM RINKU RAMSEY During your visit today, we recorded the following information about you: Temperature Pulse Respiration Blood pressure 97.5 degrees 64/minute 16/minute 152/8 Weight Height 87.4 kg 1.588 m Rinku Ramsey MD 12/15/2022 2:41 PM Signed NAME: Andrei Leo CLINIC NO.: [id number] DATE OF SERVICE: December 15, 2022 (Joon) Some elements in this clinic note that are critical to medical decision making have been carefully reviewed and included from a prior clinic note dated: October 27, 2022 (Joon) Additional Clinicians involved in Andrei Leo's care: [...] 08/29/2022 and then 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 Overall, she is doing well [...] they are slightly increased. Got back from [place] and saw her sisters and had a [...] follow-up with (more content not included)... Normal [facility] Comprehensive metabolic 2000 panelon 12-15-2022 Albumin [Mass/Vol] 3.8 g/dL Low 3.9-4.9 [facility] Comment on above: Order Comment: Speci men Type: BLOOD SPECIMEN [facility] Address: [address] [address] Performed By: #### 2 4323-8 #### [facility] CLIA [id number] [address] [place] [address] ALP [Catalytic activity/Vol] 76 U/L Normal 34-123 [facility] Comment on above: Order Comment: Speci men Type: BLOOD SPECIMEN [facility] Address: [address] [address] Performed By: #### 2 4323-8 #### [facility] CLIA [id number] [address] [place] [address] ALT [Catalytic activity/Vol] 24 U/L Normal 7-38 [facility] Comment on above: Order Comment: Speci men Type: BLOOD SPECIMEN [facility] Address: [address] [address] Performed By: #### 2 4323-8 #### [facility] CLIA [id number] [address] [place] [address] Anion gap [Moles/Vol] 8 mmol/L Low 9-18 [facility] Comment on above: Order Comment: Speci men Type: BLOOD SPECIMEN [facility] Address: [address] [address] Performed By: #### 2 4323-8 #### [facility] CLIA [id number] [address] [place] [address] AST [Catalytic activity/Vol] 37 U/L High 13-35 [facility] Comment on above: Order Comment: Speci men Type: BLOOD SPECIMEN [facility] Address: [address] [address] Performed By: #### 2 4323-8 #### [facility] CLIA [id number] [address] [place] [address] Bilirubin [Mass/Vol] 0.7 mg/dL Normal 0.2-1.3 [facility] Comment on above: Order Comment: Speci men Type: BLOOD SPECIMEN [facility] Address: [address] [address] Performed By: #### 2 4323-8 #### [facility] CLIA [id number] [address] [place] [address] Calcium [Mass/Vol] 9.6 mg/dL Normal 8.5-10.2 [facility] Comment on above: Order Comment: Speci men Type: BLOOD SPECIMEN [facility] Address: [address] [address] Performed By: #### 2 4323-8 #### [facility] CLIA [id number] [address] [place] [address] Chloride [Moles/Vol] 103 mmol/L Normal 97-105 [facility] Comment on above: Order Comment: Speci men Type: BLOOD SPECIMEN [facility] Address: [address] [address] Performed By: #### 2 4323-8 #### [facility] CLIA [id number] [address] [place] [address] CO2 [Moles/Vol] 25 mmol/L Normal 22-30 [facility] Comment on above: Order Comment: Speci men Type: BLOOD SPECIMEN [facility] Address: [address] [address] Performed By: #### 2 4323-8 #### [facility] CLIA [id number] [address] [place] [address] Creatinine [Mass/Vol] 0.86 mg/dL Normal 0.58-0.96 [facility] Comment on above: Order Comment: Fabricio tapia Type: BLOOD SPECIMEN [facility] Address: [address] [id number] Performed By: #### 2 4323-8 #### [facility] CLIA [id number] [address] [place] [address] ESTIMATED GLOMERULAR FILTRATION RATE 72 mL/min/1.73m??? Normal >=60 [facility] Comment on above: Order Comment: Fabricio tapia Type: BLOOD SPECIMEN [facility] Address: [address] [place] [address] Result Comment: Miryam mated Glomerular Filtration Rate [...] actual GFR. Performed By: #### 2 4323-8 #### [facility] CLIA [id number] [address] [place] [address] Glucose [Mass/Vol] 104 mg/dL High 74-99 [facility] Comment on above: Order Comment: Fabricio tapia Type: BLOOD SPECIMEN [facility] Address: [address] [place], [place] [id number] Result Comment: The [place] [employer] (ADA) provides guidance for cutoff [...] Standards of Medical Care in Diabetes 2016, [place] [employer]. Diabetes Care. 2016.39(Suppl 1). Performed By: #### 2 4323-8 #### [facility] CLIA [id number] [address] [place] [address] Potassium [Moles/Vol] 3.9 mmol/L Normal 3.7-5.1 [facility] Comment on above: Order Comment: Speci men Type: BLOOD SPECIMEN [facility] Address: [address] [address] Performed By: #### 2 4323-8 #### [facility] CLIA [id number] [address] [place] [address]83 Protein [Mass/Vol] 7.5 g/dL Normal 6.3-8.0 [facility] Comment on above: Order Comment: Speci men Type: BLOOD SPECIMEN [facility] Address: [address] [address] Performed By: #### 2 4323-8 #### [facility] CLIA [id number] [address] [place] [address] Sodium [Moles/Vol] 136 mmol/L Normal 136-144 [facility] Comment on above: Order Comment: Speci men Type: BLOOD SPECIMEN [facility] Address: [address] [address] Performed By: #### 2 4323-8 #### [facility] CLIA [id number] [address] [place] [address] Urea nitrogen [Mass/Vol] 22 mg/dL High 7-21 [facility] Comment on above: Order Comment: Speci men Type: BLOOD SPECIMEN [facility] Address: [address] [address] Performed By: #### 2 4323-8 #### [facility] CLIA [id number] [address] [place] [address] CBC W Auto Differential pane l (Bld)on 10-27-2022 Basophils (Bld) [#/Vol] 10*3/uL Normal <0.11 [facility] Comment on above: Order Comment: Speci men Type: BLOOD SPECIMENOrdering Facility: [facility] Address: [address] [address] Performed By: #### 5 7021-8 ####[facility]CLIA [id number] [place] [address] Basophils/100 WBC (Bld) 0.2 % Normal [facility] Comment on above: Order Comment: Speci men Type: BLOOD SPECIMENOrdering Facility: [facility] Address: [address] [place] [address] Performed By: #### 5 7021-8 ####[facility] LABCLIA [id number] [place] [address] Differential cell count method Nom (Bld) Auto Normal [facility] Comment on above: Order Comment: Speci men Type: BLOOD SPECIMENOrdering Facility: [facility] Address: [address] [address] Performed By: #### 5 7021-8 ####[facility]CLIA [id number] [place] [address] Eosinophils (Bld) [#/Vol] 0.05 10*3/uL Normal <0.46 [facility] Comment on above: Order Comment: Speci men Type: BLOOD SPECIMENOrdering Facility: [facility] Address: [address] [address] Performed By: #### 5 7021-8 ####[facility]CLIA [id number] [place] [address] Eosinophils/100 WBC (Bld) 1.0 % Normal [facility] Comment on above: Order Comment: Speci men Type: BLOOD SPECIMENOrdering Facility: [facility] Address: [address] [address] Performed By: #### 5 7021-8 ####[facility]CLIA [id number] [place] [address] Erythrocyte distribution width (RBC) [Ratio] 14.4 % Normal 11.5-15.0 [facility] Comment on above: Order Comment: Speci men Type: BLOOD SPECIMENOrdering Facility: [facility] Address: [address] [place] [address] Performed By: #### 5 7021-8 ####[facility]CLIA [id number] [place] [address] Hematocrit (Bld) [Volume fraction] 34.0 % Low 36.0-46.0 [facility] Comment on above: Order Comment: Speci men Type: BLOOD SPECIMENOrdering Facility: [facility] Address: [address] [place] [address] Performed By: #### 5 7021-8 ####[facility] LABIA [id number] [place] [address] Hemoglobin (Bld) [Mass/Vol] 10.5 g/dL Low 11.5-15.5 [facility] Comment on above: Order Comment: Speci men Type: BLOOD SPECIMENOrdering Facility: [facility] Address: [address] [place] [address] Performed By: #### 5 7021-8 ####[facility]CLIA [id number] [place] [address] Immature granulocytes (Bld) [#/Vol] 10*3/uL Normal <0.10 [facility] Comment on above: Order Comment: Speci men Type: BLOOD SPECIMENOrdering Facility: [facility] Address: [address] [place] [address] Performed By: #### 5 7021-8 ####[facility]CLIA [id number] [place] [address] Immature granulocytes/100 WBC (Bld) 0.2 % Normal [facility] Comment on above: Order Comment: Speci men Type: BLOOD SPECIMENOrdering Facility: [facility] Address: [address] [address] Performed By: #### 5 7021-8 ####[facility]CLIA [id number] [place] [address] Lymphocytes (Bld) [#/Vol] 2.75 10*3/uL Normal 1.00-4.00 [facility] Comment on above: Order Comment: Speci men Type: BLOOD SPECIMENOrdering Facility: [facility] Address: [address] [address] Performed By: #### 5 7021-8 ####[facility]CLIA [id number] [place] [address] Lymphocytes/100 WBC (Bld) 53.6 % Normal [facility] Comment on above: Order Comment: Speci men Type: BLOOD SPECIMENOrdering Facility: [facility] Address: [address] [address] Performed By: #### 5 7021-8 ####[facility]CLIA [id number] [place] [address] MCH (RBC) [Entitic mass] 29.3 pg Normal 26.0-34.0 [facility] Comment on above: Order Comment: Speci men Type: BLOOD SPECIMENOrdering Facility: [facility] Address: [address] [address] Performed By: #### 5 7021-8 ####[facility]CLIA [id number] [place] [address] MCHC (RBC) [Mass/Vol] 30.9 g/dL Normal 30.5-36.0 [facility] Comment on above: Order Comment: Speci men Type: BLOOD SPECIMENOrdering Facility: [facility] Address: [address] [place] [address] Performed By: #### 5 7021-8 ####[facility]CLIA [id number] [place] [address] MCV (RBC) [Entitic vol] 95.0 fL Normal 80.0-100.0 C [facility] Comment on above: Order Comment: Speci men Type: BLOOD SPECIMENOrdering Facility: [facility] Address: [address] [place] [address] Performed By: #### 5 7021-8 ####[facility]CLIA [id number] [place] [address] Monocytes (Bld) [#/Vol] 0.24 10*3/uL Normal <0.87 [facility] Comment on above: Order Comment: Speci men Type: BLOOD SPECIMENOrdering Facility: [facility] Address: [address] [place] [address] Performed By: #### 5 7021-8 ####[facility]CLIA [id number] [place] [address] Monocytes/100 WBC (Bld) 4.7 % Normal C [facility] Comment on above: Order Comment: Speci men Type: BLOOD SPECIMENOrdering Facility: [facility] Address: [address] [place] [address] Performed By: #### 5 7021-8 ####[facility]CLIA [id number] [place] [address] Neutrophils (Bld) [#/Vol] 2.07 10*3/uL Normal 1.45-7.50 [facility] Comment on above: Order Comment: Speci men Type: BLOOD SPECIMENOrdering Facility: [facility] Address: [address] [place] [address] Performed By: #### 5 7021-8 ####[facility] LABIA [id number] [place] [address] Neutrophils/100 WBC (Bld) 40.3 % Normal [facility] Comment on above: Order Comment: Speci men Type: BLOOD SPECIMENOrdering Facility: [facility] Address: [facility] [address] [address] Performed By: #### 5 7021-8 ####[facility]CLIA [id number] [place] [address] Nucleated RBC (Bld) [#/Vol] 10*3/uL Normal <0.01 [facility] Comment on above: Order Comment: Speci men Type: BLOOD SPECIMENOrdering Facility: [facility] Address: [address] [address] Performed By: #### 5 7021-8 ####[facility]CLIA [id number] [place] [address] Nucleated RBC/100 WBC (Bld) [Ratio] 0.0 /100 WBC Normal [facility] Comment on above: Order Comment: Speci men Type: BLOOD SPECIMENOrdering Facility: [facility] Address: [address] [place] [address] Performed By: #### 5 7021-8 ####[facility]CLIA [id number] [place] [address] Platelet mean volume (Bld) [Entitic vol] 10.1 fL Normal 9.0-12.7 [facility] Comment on above: Order Comment: Speci men Type: BLOOD SPECIMENOrdering Facility: [facility] Address: [address] [address] Performed By: #### 5 7021-8 ####[facility]CLIA [id number] [place] [address] Platelets (Bld) [#/Vol] 119 10*3/uL Low 150-400 [facility] Comment on above: Order Comment: Speci men Type: BLOOD SPECIMENOrdering Facility: [facility] Address: [address] [place] [address] Performed By: #### 5 7021-8 ####[facility]CLIA [id number] [place] [address] RBC (Bld) [#/Vol] 3.58 10*6/uL Low 3.90-5.20 [facility] Comment on above: Order Comment: Speci men Type: BLOOD SPECIMENOrdering Facility: [facility] Address: [address] [place], [place] [id number] Performed By: #### 5 7021-8 ####[facility]CLIA [id number] [place] [address] WBC (Bld) [#/Vol] 5.13 10*3/uL Normal 3.70-11.00 [facility] Comment on above: Order Comment: Speci men Type: BLOOD SPECIMENOrdering Facility: [facility] Address: [address] [place] [address] Performed By: #### 5 7021-8 ####[facility]CLIA [id number] [place] [address] CNOVSPon 10-27-2022 CNOVSP Visit (SP) Office ([place]) ADNREI LEO ([id number]) 1950 F Date Time Provider Department 10/27/22 3:00 PM RINKU RAMSEY During your visit today, we recorded the following information about you: Temperature Pulse Respiration Blood pressure 97.4 degrees 71/minute 18/minute 164/84 Weight Height 87.4 kg 1.588 m Rinku Ramsey MD 10/27/2022 3:38 PM Signed NAME: Andrei Leo CLINIC NO.: [id number] DATE OF SERVICE: October 27, 2022 (Joon) Some elements in this clinic note that are critical to medical decision making have been carefully reviewed and included from a prior clinic note dated: September 15, 2022 (Joon) Additional Clinicians involved in Andrei Leo's care: [...] platelets 119 Updated Visit, September 15, 2022: Adnrei continues to do very well. 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 Overall, she is doing well today with no new complaints. Updated Visit, June 23, 2022: Adnrei is doing well on Tavalisse 100 mg [...] they are slightly increased. Got back from [place] and saw her sisters and had a [...] sinuses and (more content not included)... Normal [facility] Comprehensive metabolic 2000 panelon 10-27-2022 Albumin [Mass/Vol] 3.6 g/dL Low 3.9-4.9 [facility] Comment on above: Order Comment: Speci men Type: BLOOD SPECIMENOrdering Facility: [facility] Address: [address] [address] Performed By: #### 2 4323-8 ####[facility]CLIA [id number] [place] [address] ALP [Catalytic activity/Vol] 74 U/L Normal 34-123 [facility] Comment on above: Order Comment: Speci men Type: BLOOD SPECIMENOrdering Facility: [facility] Address: [address] [place] [address] Performed By: #### 2 4323-8 ####[facility]CLIA [id number] [place] [address] ALT [Catalytic activity/Vol] 31 U/L Normal 7-38 [facility] Comment on above: Order Comment: Speci men Type: BLOOD SPECIMENOrdering Facility: [facility] Address: [address] [place] [address] Performed By: #### 2 4323-8 ####[facility]CLIA [id number] [place] [address] Anion gap [Moles/Vol] 8 mmol/L Low 9-18 [facility] Comment on above: Order Comment: Speci men Type: BLOOD SPECIMENOrdering Facility: [facility] Address: [address] [place] [address] Performed By: #### 2 4323-8 ####[facility]CLIA [id number] [place] [address] AST [Catalytic activity/Vol] 45 U/L High 13-35 [facility] Comment on above: Order Comment: Speci men Type: BLOOD SPECIMENOrdering Facility: [facility] Address: [address] [place] [address] Performed By: #### 2 4323-8 ####[facility]CLIA [id number] [place] [address] Bilirubin [Mass/Vol] 0.4 mg/dL Normal 0.2-1.3 [facility] Comment on above: Order Comment: Speci men Type: BLOOD SPECIMENOrdering Facility: [facility] Address: [address] [address] Performed By: #### 2 4323-8 ####[facility]CLIA [id number] [place] [address] Calcium [Mass/Vol] 9.3 mg/dL Normal 8.5-10.2 [facility] Comment on above: Order Comment: Speci men Type: BLOOD SPECIMENOrdering Facility: [facility] Address: [address] [address] Performed By: #### 2 4323-8 ####[facility]CLIA [id number] [place] [address] Chloride [Moles/Vol] 105 mmol/L Normal 97-105 [facility] Comment on above: Order Comment: Speci men Type: BLOOD SPECIMENOrdering Facility: [facility] Address: [address] [address] Performed By: #### 2 4323-8 ####[facility]CLIA [id number] [place] [address] CO2 [Moles/Vol] 27 mmol/L Normal 22-30 [facility] Comment on above: Order Comment: Speci men Type: BLOOD SPECIMENOrdering Facility: [facility] Address: [address] [address] Performed By: #### 2 4323-8 ####[facility]CLIA [id number] [place] [address] Creatinine [Mass/Vol] 0.90 mg/dL Normal 0.58-0.96 [facility] Comment on above: Order Comment: Fabricio tapia Type: BLOOD SPECIMENOrdering Facility: [facility] Address: [address] [place] [address] Performed By: #### 2 4323-8 ####[facility]CLIA [id number] [place] [address] ESTIMATED GLOMERULAR FILTRATION RATE 68 mL/min/1.73m??? Normal >=60 [facility] Comment on above: Order Comment: Fabricio tapia Type: BLOOD SPECIMENOrdering Facility: [facility] Address: [address] [place] [address] Result Comment: Miryam mated Glomerular Filtration Rate [...] actual GFR. Performed By: #### 2 4323-8 ####[facility]CLIA [id number] [place] [address] Glucose [Mass/Vol] 109 mg/dL High 74-99 [facility] Comment on above: Order Comment: Fabricio tapia Type: BLOOD SPECIMENOrdering Facility: [facility] Address: [address] [place] [address] Result Comment: The [place] [employer] (ADA) provides guidance for cutoff [...] Standards of Medical Care in Diabetes 2016, [place] [employer]. Diabetes Care. 2016.39(Suppl 1). Performed By: #### 2 4323-8 ####[facility]CLIA [id number] [place] [address] Potassium [Moles/Vol] 3.4 mmol/L Low 3.7-5.1 [facility] Comment on above: Order Comment: Speci men Type: BLOOD SPECIMENOrdering Facility: [facility] Address: [address] [address] Performed By: #### 2 4323-8 ####[facility]CLIA [id number] [place] [address] Protein [Mass/Vol] 7.4 g/dL Normal 6.3-8.0 [facility] Comment on above: Order Comment: Speci men Type: BLOOD SPECIMENOrdering Facility: [facility] Address: [address] [address] Performed By: #### 2 4323-8 ####[facility]CLIA [id number] [place] [address] Sodium [Moles/Vol] 140 mmol/L Normal 136-144 [facility] Comment on above: Order Comment: Speci men Type: BLOOD SPECIMENOrdering Facility: [facility] Address: [address] [address] Performed By: #### 2 4323-8 ####[facility]CLIA [id number] [place] [address] Urea nitrogen [Mass/Vol] 25 mg/dL High 7-21 [facility] Comment on above: Order Comment: Speci men Type: BLOOD SPECIMENOrdering Facility: [facility] Address: [address] [address] Performed By: #### 2 4323-8 ####[facility]CLIA [id number] [place] [address] CBC W Auto Differential pane l (Bld)on 09-15-2022 Basophils (Bld) [#/Vol] 10*3/uL Normal <0.11 [facility] Comment on above: Order Comment: Speci men Type: BLOOD SPECIMEN [facility] [facility] Address: [address] [place] [address] Performed By: #### 2 4323-8 #### [facility] CLIA [id number] [address] [place] [address] Basophils/100 WBC (Bld) 0.2 % Normal C [facility] Comment on above: Order Comment: Speci men Type: BLOOD SPECIMEN Ordering Facility: [facility] Address: [address] [place] [address] Performed By: #### 2 4323-8 #### [facility] CLIA [id number] [address] [place] [address] 40017 Differential cell count method Nom (Bld) Auto Normal [facility] Comment on above: Order Comment: Speci men Type: BLOOD SPECIMEN Ordering Facility: [facility] Address: [address] [place] [address] Performed By: #### 2 4323-8 #### [facility] CLIA [id number] [address] [place] [address] 49925 Eosinophils (Bld) [#/Vol] 0.05 10*3/uL Normal <0.46 [facility] Comment on above: Order Comment: Speci men Type: BLOOD SPECIMEN Ordering Facility: [facility] Address: [address] [place] [address] Performed By: #### 2 4323-8 #### [facility] CLIA [id number] [address] [place] [address] 88138 Eosinophils/100 WBC (Bld) 1.0 % Normal [facility] Comment on above: Order Comment: Speci men Type: BLOOD SPECIMEN Ordering Facility: [facility] Address: [address] [place] [address] Performed By: #### 2 4323-8 #### [facility] CLIA [id number] [address] [place] [address] 92861 Erythrocyte distribution width (RBC) [Ratio] 14.6 % Normal 11.5-15.0 [facility] Comment on above: Order Comment: Speci men Type: BLOOD SPECIMEN Ordering Facility: [facility] Address: [address] [place] [address] Performed By: #### 2 4323-8 #### [facility] CLIA [id number] [address] [place] [address] 87001 Hematocrit (Bld) [Volume fraction] 35.0 % Low 36.0-46.0 [facility] Comment on above: Order Comment: Speci men Type: BLOOD SPECIMEN Ordering Facility: [facility] Address: [address] [place] [address] Performed By: #### 2 4323-8 #### [facility] CLIA [id number] [address] [place] [address] 00168 Hemoglobin (Bld) [Mass/Vol] 10.9 g/dL Low 11.5-15.5 [facility] Comment on above: Order Comment: Speci men Type: BLOOD SPECIMEN Ordering Facility: [facility] Address: [address] [place] [address] Performed By: #### 2 4323-8 #### [facility] CLIA [id number] [address] [place] [address] 65675 Immature granulocytes (Bld) [#/Vol] 10*3/uL Normal <0.10 [facility] Comment on above: Order Comment: Speci men Type: BLOOD SPECIMEN Ordering Facility: [facility] Address: [address] [place] [address] Performed By: #### 2 4323-8 #### [facility] CLIA [id number] [address] [place] [address] 18425 Immature granulocytes/100 WBC (Bld) 0.2 % Normal [facility] Comment on above: Order Comment: Speci men Type: BLOOD SPECIMEN Ordering Facility: [facility] Address: [address] [place] [address] Performed By: #### 2 4323-8 #### [facility] CLIA [id number] [address] [place] [address] 19804 Lymphocytes (Bld) [#/Vol] 2.28 10*3/uL Normal 1.00-4.00 [facility] Comment on above: Order Comment: Speci men Type: BLOOD SPECIMEN Ordering Facility: [facility] Address: [address] [place] [address] Performed By: #### 2 4323-8 #### [facility] CLIA [id number] [address] [place] [address] 40521 Lymphocytes/100 WBC (Bld) 45.8 % Normal [facility] Comment on above: Order Comment: Speci men Type: BLOOD SPECIMEN Ordering Facility: [facility] Address: [address] [place] [address] Performed By: #### 2 4323-8 #### [facility] CLIA [id number] [address] [place] [address] 11029 MCH (RBC) [Entitic mass] 30.0 pg Normal 26.0-34.0 [facility] Comment on above: Order Comment: Speci men Type: BLOOD SPECIMEN Ordering Facility: [facility] Address: [address] [place] [address] Performed By: #### 2 4323-8 #### [facility] CLIA [id number] [address] [place] [address] 18546 MCHC (RBC) [Mass/Vol] 31.1 g/dL Normal 30.5-36.0 [facility] Comment on above: Order Comment: Speci men Type: BLOOD SPECIMEN Ordering Facility: [facility] Address: [address] [place] [address] 11303 Performed By: #### 2 4323-8 #### [facility] CLIA [id number] [address] [place] [address] 94570 MCV (RBC) [Entitic vol] 96.4 fL Normal 80.0-100.0 C [facility] Comment on above: Order Comment: Speci men Type: BLOOD SPECIMEN Ordering Facility: [facility] Address: [address] [place] [address] Performed By: #### 2 4323-8 #### [facility] CLIA [id number] [address] [place] [address] 84910 Monocytes (Bld) [#/Vol] 0.15 10*3/uL Normal <0.87 [facility] Comment on above: Order Comment: Speci men Type: BLOOD SPECIMEN Ordering Facility: [facility] Address: [address] [place] [address] Performed By: #### 2 4323-8 #### [facility] CLIA [id number] [address] [place] [address] 82917 Monocytes/100 WBC (Bld) 3.0 % Normal C [facility] Comment on above: Order Comment: Speci men Type: BLOOD SPECIMEN Ordering Facility: [facility] Address: [address] [place] [address] Performed By: #### 2 4323-8 #### [facility] CLIA [id number] [address] [place] [address] 37216 Neutrophils (Bld) [#/Vol] 2.48 10*3/uL Normal 1.45-7.50 [facility] Comment on above: Order Comment: Speci men Type: BLOOD SPECIMEN Ordering Facility: [facility] Address: [address] [place] [address] 12368 Performed By: #### 2 4323-8 #### [facility] CLIA [id number] [address] [place] [address] 72912 Neutrophils/100 WBC (Bld) 49.8 % Normal [facility] Comment on above: Order Comment: Speci men Type: BLOOD SPECIMEN Ordering Facility: [facility] Address: [address] [place] [address] Performed By: #### 2 4323-8 #### [facility] CLIA [id number] [address] [place] [address] Nucleated RBC (Bld) [#/Vol] 10*3/uL Normal <0.01 [facility] Comment on above: Order Comment: Speci men Type: BLOOD SPECIMEN Ordering Facility: [facility] Address: [address] [place] [address] Performed By: #### 2 4323-8 #### [facility] CLIA [id number] [address] [place] [address] Nucleated RBC/100 WBC (Bld) [Ratio] 0.0 /100 WBC Normal [facility] Comment on above: Order Comment: Speci men Type: BLOOD SPECIMEN Ordering Facility: [facility] Address: [address] [place] [address] Performed By: #### 2 4323-8 #### [facility] CLIA [id number] [address] [place] [address] 17789 Platelet mean volume (Bld) [Entitic vol] 9.8 fL Normal 9.0-12.7 [facility] Comment on above: Order Comment: Speci men Type: BLOOD SPECIMEN Ordering Facility: [facility] Address: [address] [place] [address] Performed By: #### 2 4323-8 #### [facility] CLIA [id number] [address] [place] [address] 07323 Platelets (Bld) [#/Vol] 130 10*3/uL Low 150-400 [facility] Comment on above: Order Comment: Speci men Type: BLOOD SPECIMEN Ordering Facility: [facility] Address: [address] [place] [address] Performed By: #### 2 4323-8 #### [facility] CLIA [id number] [address] [place] [address] RBC (Bld) [#/Vol] 3.63 10*6/uL Low 3.90-5.20 [facility] Comment on above: Order Comment: Speci men Type: BLOOD SPECIMEN Ordering Facility: [facility] Address: [address] [place] [address] Performed By: #### 2 4323-8 #### [facility] CLIA [id number] [address] [place] [address] 65904 WBC (Bld) [#/Vol] 4.98 10*3/uL Normal 3.70-11.00 [facility] Comment on above: Order Comment: Speci men Type: BLOOD SPECIMEN Ordering Facility: [facility] Address: [address] [place] [address] 25866 Performed By: #### 2 4323-8 #### [facility] CLIA [id number] [address] [place] [address] 67859 CNOVSPon 09-15-2022 CNOVSP Visit (SP) Office (HEMASA) ANDREI LEO ([id number]) 1950 F Date Time Provider Department 09/15/22 3:00 PM RINKU RAMSEY During your visit today, we recorded the following information about you: Temperature Pulse Respiration Blood pressure 97.1 degrees 75/minute 16/minute 158/89 Weight Height 86.4 kg 1.588 m Rinku Ramsey MD 09/20/2022 3:43 PM Signed NAME: Andrei Leo [facility] NO.: [id number] DATE OF SERVICE: September 15, 2022 (Joon) Some elements in this clinic note that are critical to medical decision making have been carefully reviewed and included from a prior clinic note dated: August 04, 2021 (Godwin) Additional Clinicians involved in Andrei Miranda Leo's care: Dr. Shay, Dr. 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 Overall, she is doing well [...] they are slightly increased. Got back from [place] and saw her sisters and had a [...] her sinu (more content not included)... Normal [facility] Comprehensive metabolic 2000 panelon 09-15-2022 Albumin [Mass/Vol] 3.8 g/dL Low 3.9-4.9 [facility] Comment on above: Order Comment: Speci men Type: BLOOD SPECIMEN Ordering Facility: [facility] Address: [address] [place] [id number] Performed By: #### 2 4323-8 #### [facility] CLIA [id number] [address] [place] [address] 42878 ALP [Catalytic activity/Vol] 71 U/L Normal 34-123 [facility] Comment on above: Order Comment: Speci men Type: BLOOD SPECIMEN Ordering Facility: [facility] Address: [address] [place] [address] Performed By: #### 2 4323-8 #### [facility] CLIA [id number] [address] [place] [address] 38522 ALT [Catalytic activity/Vol] 43 U/L High 7-38 [facility] Comment on above: Order Comment: Speci men Type: BLOOD SPECIMEN Ordering Facility: [facility] Address: [address] [place] [address] Performed By: #### 2 4323-8 #### [facility] CLIA [id number] [address] [place] [address] 04988 Anion gap [Moles/Vol] 10 mmol/L Normal 9-18 [facility] Comment on above: Order Comment: Speci men Type: BLOOD SPECIMEN Ordering Facility: [facility] Address: [address] [place] [address] Performed By: #### 2 4323-8 #### [facility] CLIA [id number] [address] [place] [address] 63666 AST [Catalytic activity/Vol] 69 U/L High 13-35 [facility] Comment on above: Order Comment: Speci men Type: BLOOD SPECIMEN Ordering Facility: [facility] Address: [address] [place] [id number] Performed By: #### 2 4323-8 #### [facility] CLIA [id number] [address] [place] [address] Bilirubin [Mass/Vol] 0.5 mg/dL Normal 0.2-1.3 [facility] Comment on above: Order Comment: Speci men Type: BLOOD SPECIMEN Ordering Facility: [facility] Address: [address] [place] [address] Performed By: #### 2 4323-8 #### [facility] CLIA [id number] [address] [place] [address] Calcium [Mass/Vol] 9.4 mg/dL Normal 8.5-10.2 [facility] Comment on above: Order Comment: Speci men Type: BLOOD SPECIMEN Ordering Facility: [facility] Address: [address] [place] [address] Performed By: #### 2 4323-8 #### [facility] CLIA [id number] [address] [place] [address] Chloride [Moles/Vol] 104 mmol/L Normal 97-105 [facility] Comment on above: Order Comment: Speci men Type: BLOOD SPECIMEN Ordering Facility: [facility] Address: [address] [place] [address] Performed By: #### 2 4323-8 #### [facility] CLIA [id number] [address] [place] [address] CO2 [Moles/Vol] 25 mmol/L Normal 22-30 [facility] Comment on above: Order Comment: Speci men Type: BLOOD SPECIMEN Ordering Facility: [facility] Address: [address] [place] [address] 32621 Performed By: #### 2 4323-8 #### [facility] CLIA [id number] [address] [place] [address] Creatinine [Mass/Vol] 0.87 mg/dL Normal 0.58-0.96 [facility] Comment on above: Order Comment: Speci men Type: BLOOD SPECIMEN Ordering Facility: [facility] Address: [address] [place] [id number] Performed By: #### 2 4323-8 #### [facility] CLIA [id number] [address] [place] [address] 41218 ESTIMATED GLOMERULAR FILTRATION RATE 71 mL/min/1.73m??? Normal >=60 [facility] Comment on above: Order Comment: Fabricio tapia Type: BLOOD SPECIMEN Ordering Facility: [facility] Address: [address] [place] [address] Result Comment: Miryam mated Glomerular Filtration Rate [...] actual GFR. Performed By: #### 2 4323-8 #### [facility] CLIA [id number] [address] [place] [address] 19373 Glucose [Mass/Vol] 153 mg/dL High 74-99 [facility] Comment on above: Order Comment: Fabricio tapia Type: BLOOD SPECIMEN Ordering Facility: [facility] Address: [address] [place] [address] Result Comment: The [place] [employer] (ADA) provides guidance for cutoff [...] Standards of Medical Care in Diabetes 2016, [place] [employer]. Diabetes Care. 2016.39(Suppl 1). Performed By: #### 2 4323-8 #### [facility] CLIA [id number] [address] [place] [address] 90702 Potassium [Moles/Vol] 3.7 mmol/L Normal 3.7-5.1 [facility] Comment on above: Order Comment: Speci men Type: BLOOD SPECIMEN Ordering Facility: [facility] Address: [address] [place] [address] Performed By: #### 2 4323-8 #### [facility] CLIA [id number] [address] [place] [address] Protein [Mass/Vol] 7.5 g/dL Normal 6.3-8.0 [facility] Comment on above: Order Comment: Speci men Type: BLOOD SPECIMEN Ordering Facility: [facility] Address: [address] [place] [address] Performed By: #### 2 4323-8 #### [facility] CLIA [id number] [address] [place] [address] 07571 Sodium [Moles/Vol] 139 mmol/L Normal 136-144 [facility] Comment on above: Order Comment: Speci men Type: BLOOD SPECIMEN Ordering Facility: [facility] Address: [address] [place] [address] Performed By: #### 2 4323-8 #### [facility] CLIA [id number] [address] [place] [address] 10302 Urea nitrogen [Mass/Vol] 26 mg/dL High 7-21 [facility] Comment on above: Order Comment: Speci men Type: BLOOD SPECIMEN Ordering Facility: [facility] Address: [address] [place] [address] Performed By: #### 2 4323-8 #### [facility] CLIA [id number] [address] [place] [address] Albumin [Mass/volume] in Ser um or PlasmaOrdered By: Gilson Sarah on 08-29-2022 Albumin [Mass/Vol] 3.2 g/dL 3.2-5.5 [facility] Automated erythrocytes count in urine sediment (number/area)Ordered By: Gilson Sarah on 08-29-2022 RBC Auto (Urine sed) [#/Area] 1-2 [HPF] 0-4 [facility] Automated leukocytes count i n urine sediment (number/area)Ordered By: Gilson Sarah on 08-29-2022 WBC Auto (Urine sed) [#/Area] 0-1 [HPF] 0-4 [facility] Bilirubin Test strip Ql (U)O rdered By: Gilson Sarah on 08-29-2022 Bilirubin Ql (U) Negative Negative [facility] Color Auto (U)Ordered By: Ab christiano Sarah on 08-29-2022 Color (U) Yellow Yellow [facility] Creatinine [Mass/volume] in UrineOrdered By: Gilson Sarah on 08-29-2022 Creatinine (U) [Mass/Vol] 94.2 mg/dL [facility] Comment on above: No reference range e stablished Creatinine and Glomerular fi ltration rate.predicted panel (S/P/Bld)Ordered By: Gilson Sarah on 08-29-2022 Creatinine [Mass/Vol] 0.80 mg/dL 0.44-1.03 [facility] Dipstick and Microscopicon 0 08-29-2022 Appearance (U) Clear Normal Clear [facility] Comment on above: Order Comment: Reaso n for Exam HTN (hypertension);Lupus;Chronic ITP (idiopathic thrombocyto Name Collection Type:: Clean-Voided Midstream Performed By: #### A DDONUAPLUS #### [facility] [address] [place] [address] [place] Bacteria,Urine None Seen Normal None Seen [facility] Comment on above: Order Comment: Reaso n for Exam HTN (hypertension);Lupus;Chronic ITP (idiopathic thrombocyto Name Collection Type:: Clean-Voided Midstream Performed By: #### A DDONUAPLUS #### [facility] [address] [id number] [place] Bilirubin,Urine Negative Normal Negative [facility] Comment on above: Order Comment: Reaso n for Exam HTN (hypertension);Lupus;Chronic ITP (idiopathic thrombocyto Name Collection Type:: Clean-Voided Midstream Performed By: #### A DDONUAPLUS #### [facility] [address] [place] [address] [place] Color (U) Yellow Normal Yellow [facility] Comment on above: Order Comment: Reaso n for Exam HTN (hypertension);Lupus;Chronic ITP (idiopathic thrombocyto Name Collection Type:: Clean-Voided Midstream Performed By: #### A DDONUAPLUS #### [place] [address] [place] Glucose Ql (U) Normal Normal Normal [facility] Comment on above: Order Comment: Reaso n for Exam HTN (hypertension);Lupus;Chronic ITP (idiopathic thrombocyto Name Collection Type:: Clean-Voided Midstream Performed By: #### A DDONUAPLUS #### [place] [address] [place] Hyaline Casts,Urine 0-8 Normal 0-8 [facility] Comment on above: Order Comment: Reaso n for Exam HTN (hypertension);Lupus;Chronic ITP (idiopathic thrombocyto Name Collection Type:: Clean-Voided Midstream Result Comment: PERF ORMED BY: [place] [address] PATHOLOGIST [employer] IVORY BORRERO M.D. Performed By: #### A DDONUAPLUS #### [place] [address] [place] Ketones Ql (U) Negative Normal Negative [facility] Comment on above: Order Comment: Reaso n for Exam HTN (hypertension);Lupus;Chronic ITP (idiopathic thrombocyto Name Collection Type:: Clean-Voided Midstream Performed By: #### A DDONUAPLUS #### [place] [address] [place] Leukocyte esterase Test strip Ql (U) Negative Normal Negative [facility] Comment on above: Order Comment: Reaso n for Exam HTN (hypertension);Lupus;Chronic ITP (idiopathic thrombocyto Name Collection Type:: Clean-Voided Midstream Performed By: #### A DDONUAPLUS #### [place] [address] [place] Nitrite,Urine Negative Normal Negative [facility] Comment on above: Order Comment: Reaso n for Exam HTN (hypertension);Lupus;Chronic ITP (idiopathic thrombocyto Name Collection Type:: Clean-Voided Midstream Performed By: #### A DDONUAPLUS #### [place] [address] [place] Occult Blood,Urine Negative Normal Negative [facility] Comment on above: Order Comment: Reaso n for Exam HTN (hypertension);Lupus;Chronic ITP (idiopathic thrombocyto Name Collection Type:: Clean-Voided Midstream Performed By: #### A DDONUAPLUS #### [place] [address] [place] pH (U) 6.5 [pH] Normal 5.0-9.0 [facility] Comment on above: Order Comment: Reaso n for Exam HTN (hypertension);Lupus;Chronic ITP (idiopathic thrombocyto Name Collection Type:: Clean-Voided Midstream Performed By: #### A DDONUAPLUS #### [facility] [address] [place] [address] [place] Protein,Urine Negative Normal Negative [facility] Comment on above: Order Comment: Reaso n for Exam HTN (hypertension);Lupus;Chronic ITP (idiopathic thrombocyto Name Collection Type:: Clean-Voided Midstream Performed By: #### A DDONUAPLUS #### [place] [address] [place] RBC,Urine 1-2 Normal 0-4 [facility] Comment on above: Order Comment: Reaso n for Exam HTN (hypertension);Lupus;Chronic ITP (idiopathic thrombocyto Name Collection Type:: Clean-Voided Midstream Performed By: #### A DDONUAPLUS #### [place] [address] [place] Specificy [place],Urine 1.015 Normal 1.001-1.030 [facility] Comment on above: Order Comment: Reaso n for Exam HTN (hypertension);Lupus;Chronic ITP (idiopathic thrombocyto Name Collection Type:: Clean-Voided Midstream Performed By: #### A DDONUAPLUS #### [place] [address] [place] Squamous Epithelial Cell,Urine 3-4 High 0-2 [facility] Comment on above: Order Comment: Reaso n for Exam HTN (hypertension);Lupus;Chronic ITP (idiopathic thrombocyto Name Collection Type:: Clean-Voided Midstream Performed By: #### A DDONUAPLUS #### [facility] [address] Urobilinogen,Urine Normal Normal Normal [facility] Comment on above: Order Comment: Reaso n for Exam HTN (hypertension);Lupus;Chronic ITP (idiopathic thrombocyto Name Collection Type:: Clean-Voided Midstream Performed By: #### A DDONUAPLUS #### [facility] [address] [place] [address] [place] WBC LM.HPF (Urine sed) [#/Area] 0 /[HPF] Normal 0-4 [facility] Comment on above: Order Comment: Reaso n for Exam HTN (hypertension);Lupus;Chronic ITP (idiopathic thrombocyto Name Collection Type:: Clean-Voided Midstream Performed By: #### A DDONUAPLUS #### [facility] [address] [place] [address] Erythrocyte distribution wid th Auto (RBC) [Ratio]Ordered By: Gilson Sarah on 08-29-2022 Erythrocyte distribution width (RBC) [Ratio] 14.9 % 11.9-15.3 [facility] Estimated glomerular filtrat ion rate (GFR) non- AmericanOrdered By: Gilson Sarah on 08-29-2022 GFR/1.73 sq M.predicted among non-blacks MDRD (S/P/Bld) [Vol rate/Area] > 60 mL/Min [facility] Hematocrit Auto (Bld) [Volum e fraction]Ordered By: Gilson Sarah on 08-29-2022 Hematocrit (Bld) [Volume fraction] 34.9 % 34.0-46.4 [facility] Hemoglobin [Mass/volume] in BloodOrdered By: Gilson Sarah on 08-29-2022 Hemoglobin (Bld) [Mass/Vol] 11.2 g/dL 11.8-15.4 [facility] Hemogram CBC Without Diffon 08-29-2022 Erythrocyte distribution width (RBC) [Ratio] 14.9 % Normal 11.9-15.3 [facility] Comment on above: Order Comment: Reaso n for Exam HTN (hypertension);Lupus;Chronic ITP (idiopathic thrombocyto Performed By: #### C BCNO #### [address] Hematocrit (Bld) [Volume fraction] 34.9 % Normal 34.0-46.4 [facility] Comment on above: Order Comment: Reaso n for Exam HTN (hypertension);Lupus;Chronic ITP (idiopathic thrombocyto Performed By: #### C BCNO #### [address] Hemoglobin (Bld) [Mass/Vol] 11.2 g/dL Low 11.8-15.4 [facility] Comment on above: Order Comment: Reaso n for Exam HTN (hypertension);Lupus;Chronic ITP (idiopathic thrombocyto Performed By: #### C BCNO #### [address] MCH (RBC) [Entitic mass] 29.5 pg Normal 24.7-34.3 [facility] Comment on above: Order Comment: Reaso n for Exam HTN (hypertension);Lupus;Chronic ITP (idiopathic thrombocyto Performed By: #### C BCNO #### [address] MCV (RBC) [Entitic vol] 92.0 fL Normal 80-100 F [facility] Comment on above: Order Comment: Reaso n for Exam HTN (hypertension);Lupus;Chronic ITP (idiopathic thrombocyto Performed By: #### C BCNO #### [address] Mean Corpuscular HGB Conc 32.1 g/dL Normal 32.0-35.0 [facility] Comment on above: Order Comment: Reaso n for Exam HTN (hypertension);Lupus;Chronic ITP (idiopathic thrombocyto Performed By: #### C BCNO #### [address] Platelet mean volume (Bld) [Entitic vol] 8.4 fL Normal 6.3-10.7 [facility] Comment on above: Order Comment: Reaso n for Exam HTN (hypertension);Lupus;Chronic ITP (idiopathic thrombocyto Result Comment: PERF ORMED BY: [place] [address] PATHOLOGIST STEAM DRIER TENDER IVORY BORRERO M.D. Performed By: #### C BCNO #### [facility] [address] [place] [address] Platelets (Bld) [#/Vol] 124 10*3/uL Low 150-450 [facility] Comment on above: Order Comment: Reaso n for Exam HTN (hypertension);Lupus;Chronic ITP (idiopathic thrombocyto Performed By: #### C BCNO #### [address] RBC (Bld) [#/Vol] 3.79 10*6/uL Normal 3.60-5.00 [facility] Comment on above: Order Comment: Reaso n for Exam HTN (hypertension);Lupus;Chronic ITP (idiopathic thrombocyto Performed By: #### C BCNO #### [address] WBC (Bld) [#/Vol] 4.3 10*3/uL Normal 3.8-11.6 [facility] Comment on above: Order Comment: Reaso n for Exam HTN (hypertension);Lupus;Chronic ITP (idiopathic thrombocyto Performed By: #### C BCNO #### [address] Ketones Auto test strip (U) [Mass/Vol]Ordered By: Gilson Sarah on 08-29-2022 Ketones (U) [Mass/Vol] Negative Negative [facility] - Chemistry and C hemistry - challengeOrdered By: Gilson Sarah on 08-29-2022 Magnesium [Mass/Vol] 2.1 mg/dL 1.6-2.6 [facility] - UrinalysisOrder ed By: Gilson Sarah on 08-29-2022 Hyaline casts LM Ql (Urine sed) 0-8 [LPF] 0-8 [facility] Leukocytes [#/volume] correc austin for nucleated erythrocytes in Blood by Automated counOrdered By: Gilson Sarah on 08-29-2022 WBC corrected for nucl RBC Auto (Bld) [#/Vol] 4.3 10*3/uL 3.8-11.6 [facility] MCH Auto (RBC) [Entitic mass ]Ordered By: Gilson Sarah on 08-29-2022 MCH (RBC) [Entitic mass] 29.5 pg 24.7-34.3 [facility] MCHC Auto (RBC) [Mass/Vol]Or dered By: Gilson Sarah on 08-29-2022 MCHC (RBC) [Mass/Vol] 32.1 g/dL 32.0-35.0 [facility] MCV Auto (RBC) [Entitic vol] Ordered By: Gilson Sarah on 08-29-2022 MCV (RBC) [Entitic vol] 92.0 fL 80-100 F [facility] Magnesiumon 08-29-2022 Magnesium [Mass/Vol] 2.1 mg/dL Normal 1.6-2.6 [facility] Comment on above: Order Comment: Reaso n for Exam HTN (hypertension);Lupus;Chronic ITP (idiopathic thrombocyto Result Comment: PERF ORMED BY: [place] [address] PATHOLOGIST STEAM DRIER TENDER IVORY BORRERO M.D. Performed By: #### C BCNO #### [facility] [address] [place] [address] Nitrite Test strip Ql (U)Ord ered By: Gilson Sarah on 08-29-2022 Nitrite Ql (U) Negative Negative [facility] No Panel InformationOrdered By: Gilson Sarah on 08-29-2022 Estimated GFR () > 60 mL/Min [facility] Comment on above: GFR estimated refere nce range: According to KDOQI guidelines, <60 ml/min/1.73m2 is sufficient to diagnose a patient with chronic kidney disease. Pharmacy Creatinine Clearance (Chem N/A [facility] Phosphate [Mass/volume] in S henok or PlasmaOrdered By: Gilson Sarah on 08-29-2022 Phosphate [Mass/Vol] 3.1 mg/dL 2.5-4.6 [facility] Platelet mean volume Auto (B ld) [Entitic vol]Ordered By: Gilson Sarah on 08-29-2022 Platelet mean volume (Bld) [Entitic vol] 8.4 fL 6.3-10.7 [facility] Platelets Auto (Bld) [#/Vol] Ordered By: Gilson Sarah on 08-29-2022 Platelets (Bld) [#/Vol] 124 10*3/uL 150-450 [facility] Protein Auto test strip (U) [Mass/Vol]Ordered By: Gilson Sarah on 08-29-2022 Protein (U) [Mass/Vol] Negative Negative [facility] Protein Creat Ratio Ur Rando mon 08-29-2022 Creatinine, Urine (Random) 94.2 mg/dL Normal [facility] Comment on above: Order Comment: Reaso n for Exam HTN (hypertension);Lupus;Chronic ITP (idiopathic thrombocyto Result Comment: No r eference range established Performed By: #### P ROCRERAT #### [facility] [address] [place] [address] Protein (U) [Mass/Vol] 9 mg/dL Normal 0-9 [facility] Comment on above: Order Comment: Reaso n for Exam HTN (hypertension);Lupus;Chronic ITP (idiopathic thrombocyto Performed By: #### P ROCRERAT #### [facility] [address] [place] [address] Urine Protein/Creatinine Ratio 96 mg/g{Cre} Normal 0-200 [facility] Comment on above: Order Comment: Reaso n for Exam HTN (hypertension);Lupus;Chronic ITP (idiopathic thrombocyto Result Comment: PERF ORMED BY: [place] [address] PATHOLOGIST STEAM DRIER TENDER IVORY BORRERO M.D. Performed By: #### P ROCRERAT #### [facility] [address] [place] [address] [place] Protein [Mass/volume] in Uri neOrdered By: Gilson Sarah on 08-29-2022 Protein (U) [Mass/Vol] 9 mg/dL 0-9 [facility] RBC Auto (Bld) [#/Vol]Ordere d By: Gilson Sarah on 08-29-2022 RBC (Bld) [#/Vol] 3.79 10*6/uL 3.60-5.00 [facility] Renal Function Panelon 08-29 Albumin [Mass/Vol] 3.2 g/dL Normal 3.2-5.5 [facility] Comment on above: Order Comment: Reaso n for Exam HTN (hypertension);Lupus;Chronic ITP (idiopathic thrombocyto Performed By: #### C BCNO #### [facility] [address] [place] [id number] [facility] Anion gap [Moles/Vol] 10.9 mmol/L Normal 6.0-15.0 [facility] Comment on above: Order Comment: Reaso n for Exam HTN (hypertension);Lupus;Chronic ITP (idiopathic thrombocyto Performed By: #### C BCNO #### [facility] [address] [place] [id number] [place] Calcium [Mass/Vol] 8.8 mg/dL Normal 8.2-10.2 [facility] Comment on above: Order Comment: Reaso n for Exam HTN (hypertension);Lupus;Chronic ITP (idiopathic thrombocyto Performed By: #### C BCNO #### [facility] [address] [place] [address] [place] Chloride [Moles/Vol] 99 mmol/L Normal 95-114 [facility] Comment on above: Order Comment: Reaso n for Exam HTN (hypertension);Lupus;Chronic ITP (idiopathic thrombocyto Performed By: #### C BCNO #### [facility] [address] [place] [address] [place] CO2 [Moles/Vol] 28.0 mmol/L Normal 22.0-30.0 [facility] Comment on above: Order Comment: Reaso n for Exam HTN (hypertension);Lupus;Chronic ITP (idiopathic thrombocyto Performed By: #### C BCNO #### [facility] [address] [place] [address] [place] Creatinine [Mass/Vol] 0.80 mg/dL Normal 0.44-1.03 [facility] Comment on above: Order Comment: Reaso n for Exam HTN (hypertension);Lupus;Chronic ITP (idiopathic thrombocyto Performed By: #### C BCNO #### [facility] [address] [place] [id number] [place] Estimated GFR ( Chelsi > 60 [facility] Comment on above: Order Comment: Reaso n for Exam HTN (hypertension);Lupus;Chronic ITP (idiopathic thrombocyto Result Comment: GFR estimated reference range: According to KDOQI guidelines, <60 ml/min/1.73m2 is sufficient to diagnose a patient with chronic kidney disease. Performed By: #### C BCNO #### [facility] [address] [place] [id number] [place] Estimated GFR (Non- Am > 60 [facility] Comment on above: Order Comment: Reaso n for Exam HTN (hypertension);Lupus;Chronic ITP (idiopathic thrombocyto Performed By: #### C BCNO #### [facility] [address] [id number] [place] Glucose [Mass/Vol] 89 mg/dL Normal 70-100 [facility] Comment on above: Order Comment: Reaso n for Exam HTN (hypertension);Lupus;Chronic ITP (idiopathic thrombocyto Result Comment: [place] Glucose Reference Range is dependent on time and content of last meal. Glucose of more than 200 mg/dL in a nonstressed, ambulatory subject supports the diagnosis of Diabetes Mellitus. ADA recommended reference range Performed By: #### C BCNO #### [facility] [address] [place] [id number] [place] Phosphate [Mass/Vol] 3.1 mg/dL Normal 2.5-4.6 [facility] Comment on above: Order Comment: Reaso n for Exam HTN (hypertension);Lupus;Chronic ITP (idiopathic thrombocyto Performed By: #### C BCNO #### [facility] [address] [place] [id number] [place] Potassium [Moles/Vol] 3.9 mmol/L Normal 3.5-5.1 [facility] Comment on above: Order Comment: Reaso n for Exam HTN (hypertension);Lupus;Chronic ITP (idiopathic thrombocyto Performed By: #### C BCNO #### [facility] [address] Sodium [Moles/Vol] 134 mmol/L Low 136-146 [facility] Comment on above: Order Comment: Reaso n for Exam HTN (hypertension);Lupus;Chronic ITP (idiopathic thrombocyto Performed By: #### C BCNO #### [facility] [address] Urea nitrogen [Mass/Vol] 19 mg/dL Normal 9-23 [facility] Comment on above: Order Comment: Reaso n for Exam HTN (hypertension);Lupus;Chronic ITP (idiopathic thrombocyto Performed By: #### C BCNO #### [facility] [address] Serum or plasma anion gap de terminationOrdered By: Gilson Sarah on 08-29-2022 Anion gap [Moles/Vol] 10.9 mmol/L 6.0-15.0 [facility] Serum or plasma calcium ramya urement (mass/volume)Ordered By: Gilson Sarah on 08-29-2022 Calcium [Mass/Vol] 8.8 mg/dL 8.2-10.2 [facility] Serum or plasma chloride brandy surement (moles/volume)Ordered By: Gilson Sarah on 08-29-2022 Chloride [Moles/Vol] 99 mmol/L 95-114 [facility] Serum or plasma glucose ramya urement (mass/volume)Ordered By: Gilson aSrah on 08-29-2022 Glucose [Mass/Vol] 89 mg/dL 70-100 [facility] Comment on above: ADA recommended refe rence rangeRandom Glucose Reference Range is dependent on time and content of last meal. Glucose of more than 200 mg/dL in a nonstressed, ambulatory subject supports the diagnosis of Diabetes Mellitus. Serum or plasma potassium me asurement (moles/volume)Ordered By: Gilson Sarah on 08-29-2022 Potassium [Moles/Vol] 3.9 mmol/L 3.5-5.1 [facility] Serum or plasma sodium measu rement (moles/volume)Ordered By: Gilson Sarah on 08-29-2022 Sodium [Moles/Vol] 134 mmol/L 136-146 [facility] Serum or plasma total carbon dioxide measurement (moles/volume)Ordered By: Gilson Sarah on 08-29-2022 CO2 [Moles/Vol] 28.0 mmol/L 22.0-30.0 [facility] Serum or plasma urea nitroge n measurement (mass/volume)Ordered By: Gilson Sarah on 08-29-2022 Urea nitrogen [Mass/Vol] 19 mg/dL 04-01 [facility] Specific gravity Auto test s trip (U) [Rel density]Ordered By: Gilson Sarah on 08-29-2022 Specific gravity (U) [Rel density] 1.015 1.001-1.030 [facility] Squamous epithelial cells de tection in urine sediment by light microscopyOrdered By: Gilson Sarah on 08-29-2022 Epithelial cells.squamous LM Ql (Urine sed) 3-4 [HPF] 0-2 [facility] US renal BIon 08-29-2022 [place] [address] Ultrasound Report Signed Patient: Andrei Leo MR#: [id number] : 1950 Acct:[id number] Age/Sex: 71 / F ADM Date: 08/29/22 Loc: Room: Type: [facility] Attending Dr: Gilson Sarah MD Ordering Provider: Gilson Sarah MD Date of Service: 08/29/22 US/US renal BI: HTN (hypertension);Lupus;C hronic ITP (idiopathic thrombocyto Copies to: Gilson Sarah [...] findings. Impression dictated by: Anastacio Cruz Jr., DTeresa08/29/2022 2:20 PM Dictation Location: [place] [address] Tech: Kamille Camacho Transcribed By: ERIC 08/29/22 1420 Dictated By: Anastacio Cruz Jr, DO 08/29/22 1413 Signed By: 08/29/22 1420 Normal [facility] Urine bacteria detection by automated methodOrdered By: Gilson Sarah on 08-29-2022 Bacteria Auto Ql (U) None seen None Seen [facility] Urine clarity by refractomet ry automatedOrdered By: Gilson Sarah on 08-29-2022 Clarity Refractometry automated (U) Clear Clear [facility] Urine glucose measurement by automated test strip (mass/volume)Ordered By: Gilson Sarah on 08-29-2022 Glucose Auto test strip (U) [Mass/Vol] Normal mg/dL Normal [facility] Urine hemoglobin detection b y automated test stripOrdered By: Gilson Sarah on 08-29-2022 Hemoglobin Auto test strip Ql (U) Negative Negative [facility] Urine leukocyte esterase det ection by automated test stripOrdered By: Gilson Sarah on 08-29-2022 Leukocyte esterase Auto test strip Ql (U) Negative Negative [facility] Urine protein/creatinine rat ioOrdered By: Gilson Sarah on 08-29-2022 Protein/Creatinine (U) [Ratio] 96 mg/g{Cre} 0-200 [facility] Urobilinogen Auto test strip (U) [Mass/Vol]Ordered By: Gilson Sarah on 08-29-2022 Urobilinogen (U) [Mass/Vol] Normal mg/dL Normal [facility] pH Auto test strip (U)Ordere d By: Gilson Sarah on 08-29-2022 pH (U) 6.5 [pH] 5.0-9.0 [facility] MAGNESIUM BLDon 12-17-2021 Magnesium [Mass/Vol] 2.3 mg/dL 1.7 - 2 .3 mg/dL [facility] Vital Signs Date Time Vital Sign Value Performing Clinician Facility 08-28-2023 14:37-0500 Body temperature 97.59 [degF] Rinku Ramsey MD Work Phone: [facility] 08-28-2023 14:37-0500 Body weight 87.3 kg Rinku Ramsey MD Work Phone: [facility] 08-28-2023 14:37-0500 Diastolic blood pressure 78 mm[Hg] Rinku Ramsey MD Work Phone: [facility] 08-28-2023 14:37-0500 Heart rate 85 /min Rinku Ramsey MD Work Phone: [facility] 08-28-2023 14:37-0500 Respiratory rate 16 /min Rinku Ramsey MD Work Phone: [facility] 08-28-2023 14:37-0500 SaO2% (BldA) [Mass fraction] 97 % Rinku Ramsey MD Work Phone: [facility] 08-28-2023 14:37-0500 Systolic blood pressure 132 mm[Hg] Rinku Ramsey MD Work Phone: [facility] 08-23-2023 10:10-0500 Body height 160 cm Mar Mayo MD Work Phone: [facility] 08-23-2023 10:10-0500 Body mass index (BMI) [Ratio] 33.66 kg/m2 Mar Mayo MD Work Phone: [facility] 08-23-2023 10:10-0500 Body weight 86.18 kg Mar Mayo MD Work Phone: [facility] 08-23-2023 10:10-0500 Diastolic blood pressure 68 mm[Hg] Mar Mayo MD Work Phone: [facility] 08-23-2023 10:10-0500 Systolic blood pressure 133 mm[Hg] Mar Mayo MD Work Phone: [facility] 06-28-2023 10:20-0500 Body height 160.02 cm Gilson Tyrel Other [facility] Other 06-28-2023 10:20-0500 Body mass index (BMI) [Ratio] 34.04 kg/m2 Gilson Tyrel Other [facility] Other 06-28-2023 10:20-0500 Body temperature 96.7 [degF] Gilson Tyrel Other [facility] Other 06-28-2023 10:20-0500 Body weight 87.18 kg Gilson Tyrel Other [facility] Other 06-28-2023 10:20-0500 Diastolic blood pressure 59 mm[Hg] Gilson Tyrel Other [facility] Other 06-28-2023 10:20-0500 Respiratory rate 18 /min Gilson Tyrel Other [facility] Other 06-28-2023 10:20-0500 SaO2% (BldA) [Mass fraction] 96 % Gilson Tyrel Other [facility] Other 06-28-2023 10:20-0500 Systolic blood pressure 117 mm[Hg] Gilson Tyrel Other [facility] Other 06-05-2023 10:08-0500 Body height 158.8 cm Ana Hernandez PA-C Work Phone: [facility] 06-05-2023 10:08-0500 Body temperature 97 [degF] Ana Mary PA-C Work Phone: [facility] 06-05-2023 10:08-0500 Body weight 87.27 kg Ana Mary PA-C Work Phone: [facility] 06-05-2023 10:08-0500 Diastolic blood pressure 84 mm[Hg] Ana Mary PA-C Work Phone: [facility] 06-05-2023 10:08-0500 Heart rate 76 /min Ana Mary PA-C Work Phone: [facility] 06-05-2023 10:08-0500 Respiratory rate 16 /min Ana Mary PA-C Work Phone: [facility] 06-05-2023 10:08-0500 SaO2% (BldA) [Mass fraction] 97 % Ana Mary PA-C Work Phone: [facility] 06-05-2023 10:08-0500 Systolic blood pressure 152 mm[Hg] Ana Mayr PA-C Work Phone: [facility] 04-20-2023 10:11-0400 Body height 158.8 cm Rinku Ramsey MD Work Phone: [facility] 04-20-2023 10:11-0400 Body temperature 97.81 [degF] Rinku Ramsey MD Work Phone: [facility] 04-20-2023 10:11-0400 Body weight 89 kg Rinku Ramsey MD Work Phone: [facility] 04-20-2023 10:11-0400 Diastolic blood pressure 87 mm[Hg] Rinku Ramsey MD Work Phone: [facility] 04-20-2023 10:11-0400 Heart rate 72 /min Rinku Ramsey MD Work Phone: [facility] 04-20-2023 10:11-0400 Respiratory rate 18 /min Rinku Ramsey MD Work Phone: [facility] 04-20-2023 10:11-0400 SaO2% (BldA) [Mass fraction] 98 % Rinku Ramsey MD Work Phone: [facility] 04-20-2023 10:11-0400 Systolic blood pressure 168 mm[Hg] Rinku Ramsey MD Work Phone: [facility] 03-09-2023 14:03-0400 Body height 158.8 cm Rinku Ramsey MD Work Phone: [facility] 03-09-2023 14:03-0400 Body temperature 97.59 [degF] Rinku Ramsey MD Work Phone: [facility] 03-09-2023 14:03-0400 Body weight 88.27 kg Rinku Ramsey MD Work Phone: [facility] 03-09-2023 14:03-0400 Diastolic blood pressure 76 mm[Hg] Rinku Ramsey MD Work Phone: [facility] 03-09-2023 14:03-0400 Heart rate 71 /min Rinku Ramsey MD Work Phone: [facility] 03-09-2023 14:03-0400 Respiratory rate 16 /min Rinku Ramsey MD Work Phone: [facility] 03-09-2023 14:03-0400 SaO2% (BldA) [Mass fraction] 95 % Rinku Ramsey MD Work Phone: [facility] 03-09-2023 14:03-0400 Systolic blood pressure 143 mm[Hg] Rinku Ramsey MD Work Phone: [facility] 01-26-2023 14:48-0400 Body height 158.8 cm Rinku Ramsey MD Work Phone: [facility] 01-26-2023 14:48-0400 Body temperature 97.59 [degF] Rinku Ramsey MD Work Phone: [facility] 01-26-2023 14:48-0400 Body weight 89.09 kg Rinku Ramsey MD Work Phone: [facility] 01-26-2023 14:48-0400 Diastolic blood pressure 77 mm[Hg] Rinku Ramsey MD Work Phone: [facility] 01-26-2023 14:48-0400 Heart rate 75 /min Rinku Ramsey MD Work Phone: [facility] 01-26-2023 14:48-0400 Respiratory rate 18 /min Rinku Ramsey MD Work Phone: [facility] 01-26-2023 14:48-0400 SaO2% (BldA) [Mass fraction] 98 % Rinku Ramsey MD Work Phone: [facility] 01-26-2023 14:48-0400 Systolic blood pressure 147 mm[Hg] Rinku Ramsey MD Work Phone: [facility] 12-15-2022 13:52-0400 Body height 158.8 cm Rinku Ramsey MD Work Phone: [facility] 12-15-2022 13:52-0400 Body temperature 97.5 [degF] Rinku Ramsey MD Work Phone: [facility] 12-15-2022 13:52-0400 Body weight 87.36 kg Rinku Ramsey MD Work Phone: [facility] 12-15-2022 13:52-0400 Diastolic blood pressure 8 mm[Hg] Rinku Ramsey MD Work Phone: [facility] 12-15-2022 13:52-0400 Heart rate 64 /min Rinku Ramsey MD Work Phone: [facility] 12-15-2022 13:52-0400 Respiratory rate 16 /min Rinku Ramsey MD Work Phone: [facility] 12-15-2022 13:52-0400 SaO2% (BldA) [Mass fraction] 96 % Rinku Ramsey MD Work Phone: [facility] 12-15-2022 13:52-0400 Systolic blood pressure 152 mm[Hg] Rinku Ramsey MD Work Phone: [facility] 10-27-2022 14:56-0400 Body height 158.8 cm Rinku Ramsey MD Work Phone: [facility] 10-27-2022 14:56-0400 Body temperature 97.39 [degF] Rinku Ramsey MD Work Phone: [facility] 10-27-2022 14:56-0400 Body weight 87.36 kg Rinku Ramsey MD Work Phone: [facility] 10-27-2022 14:56-0400 Diastolic blood pressure 84 mm[Hg] Rinku Ramsey MD Work Phone: [facility] 10-27-2022 14:56-0400 Heart rate 71 /min Rinku Ramsey MD Work Phone: [facility] 10-27-2022 14:56-0400 Respiratory rate 18 /min Rinku Ramsey MD Work Phone: [facility] 10-27-2022 14:56-0400 SaO2% (BldA) [Mass fraction] 98 % Rinku Ramsey MD Work Phone: [facility] 10-27-2022 14:56-0400 Systolic blood pressure 164 mm[Hg] Rinku Ramsey MD Work Phone: [facility] 09-15-2022 15:20-0500 Body height 158.8 cm Rinku Ramsey MD Work Phone: [facility] 09-15-2022 15:20-0500 Body temperature 97.11 [degF] Rinku Ramsey MD Work Phone: [facility] 09-15-2022 15:20-0500 Body weight 86.36 kg Rinku Ramsey MD Work Phone: [facility] 09-15-2022 15:20-0500 Diastolic blood pressure 89 mm[Hg] Rinku Ramsey MD Work Phone: [facility] 09-15-2022 15:20-0500 Heart rate 75 /min Rinku Ramsey MD Work Phone: [facility] 09-15-2022 15:20-0500 Respiratory rate 16 /min Rinku Ramsey MD Work Phone: [facility] 09-15-2022 15:20-0500 SaO2% (BldA) [Mass fraction] 97 % Rinku Ramsey MD Work Phone: [facility] 09-15-2022 15:20-0500 Systolic blood pressure 158 mm[Hg] Rinku Ramsey MD Work Phone: [facility] 09-07-2022 10:20-0500 Body height 160.02 cm Gilson Tyrel Other [facility] Other 09-07-2022 10:20-0500 Body mass index (BMI) [Ratio] 33.69 kg/m2 Gilson Tyrel Other [facility] Other 09-07-2022 10:20-0500 Body temperature 96.4 [degF] Gilson Tyrel Other [facility] Other 09-07-2022 10:20-0500 Body weight 86.27 kg Gilson Tyrel Other [facility] Other 09-07-2022 10:20-0500 Diastolic blood pressure 99 mm[Hg] Gilson Tyrel Other [facility] Other 09-07-2022 10:20-0500 Respiratory rate 18 /min Gilson Tyrel Other [facility] Other 09-07-2022 10:20-0500 SaO2% (BldA) [Mass fraction] 98 % Gilson Tyrel Other [facility] Other 09-07-2022 10:20-0500 Systolic blood pressure 180 mm[Hg] Gilson Tyrel Other [facility] Other 08-04-2022 13:58-0500 Body height 158.8 cm Jayden Connelly APRN.DOG BREEDER Work Phone: [facility] 08-04-2022 13:58-0500 Body temperature 97.39 [degF] Jayden Connelly APRN.DOG BREEDER Work Phone: [facility] 08-04-2022 13:58-0500 Body weight 85.37 kg Jayden Connelly APRN.DOG BREEDER Work Phone: [facility] 08-04-2022 13:58-0500 Diastolic blood pressure 80 mm[Hg] Jayden Connelly APRN.DOG BREEDER Work Phone: [facility] 08-04-2022 13:58-0500 Heart rate 76 /min Jayden Connelly APRN.DOG BREEDER Work Phone: [facility] 08-04-2022 13:58-0500 Respiratory rate 16 /min Jayden Connelly APRN.DOG BREEDER Work Phone: [facility] 08-04-2022 13:58-0500 SaO2% (BldA) [Mass fraction] 98 % Jayden Connelly APRN.DOG BREEDER Work Phone: [facility] 08-04-2022 13:58-0500 Systolic blood pressure 149 mm[Hg] Jayden Connelly APRN.DOG BREEDER Work Phone: [facility] 06-23-2022 13:57-0500 Body height 158.8 cm Rinku Ramsey MD Work Phone: [facility] 06-23-2022 13:57-0500 Body temperature 97.59 [degF] Rinku Ramsey MD Work Phone: [facility] 06-23-2022 13:57-0500 Body weight 88.27 kg Rinku Ramsey MD Work Phone: [facility] 06-23-2022 13:57-0500 Diastolic blood pressure 88 mm[Hg] Rinku Ramsey MD Work Phone: [facility] 06-23-2022 13:57-0500 Heart rate 66 /min Rinku Ramsey MD Work Phone: [facility] 06-23-2022 13:57-0500 Respiratory rate 16 /min Rinku Ramsey MD Work Phone: [facility] 06-23-2022 13:57-0500 SaO2% (BldA) [Mass fraction] 100 % Rinku Ramsey MD Work Phone: [facility] 06-23-2022 13:57-0500 Systolic blood pressure 156 mm[Hg] Rinku Ramsey MD Work Phone: [facility] 05-12-2022 14:19-0400 Diastolic blood pressure 80 mm[Hg] Jayden Connelly APRN.DOG BREEDER Work Phone: [facility] 05-12-2022 14:19-0400 Systolic blood pressure 158 mm[Hg] Jayden Connelly APRN.DOG BREEDER Work Phone: [facility] 05-12-2022 14:13-0400 Body height 158.8 cm Jayden Connelly APRN.DOG BREEDER Work Phone: [facility] 05-12-2022 14:13-0400 Body temperature 97.81 [degF] Jayden Connelly APRN.DOG BREEDER Work Phone: [facility] 05-12-2022 14:13-0400 Body weight 88.27 kg Jayden Connelly ICER MACHINE OPERATOR.DOG BREEDER Work Phone: [facility] 05-12-2022 14:13-0400 Heart rate 76 /min Jayden Connelly ICER MACHINE OPERATOR.DOG BREEDER Work Phone: [facility] 05-12-2022 14:13-0400 Respiratory rate 18 /min Jayden Connelly ICER MACHINE OPERATOR.DOG BREEDER Work Phone: [facility] 05-12-2022 14:13-0400 SaO2% (BldA) [Mass fraction] 98 % Jayden Connelly ICER MACHINE OPERATOR.DOG BREEDER Work Phone: [facility] 03-31-2022 13:55-0400 Body height 158.8 cm Rinku Ramsey MD Work Phone: [facility] 03-31-2022 13:55-0400 Body temperature 97.7 [degF] Rinku Ramsey MD Work Phone: [facility] 03-31-2022 13:55-0400 Body weight 88.72 kg Rinku Ramsey MD Work Phone: [facility] 03-31-2022 13:55-0400 Diastolic blood pressure 83 mm[Hg] Rinku Ramsey MD Work Phone: [facility] 03-31-2022 13:55-0400 Heart rate 66 /min Rinku Ramsey MD Work Phone: [facility] 03-31-2022 13:55-0400 Respiratory rate 16 /min Rinku Ramsey MD Work Phone: [facility] 03-31-2022 13:55-0400 SaO2% (BldA) [Mass fraction] 95 % Rinku Ramsey MD Work Phone: [facility] 03-31-2022 13:55-0400 Systolic blood pressure 173 mm[Hg] Rinku Ramsey MD Work Phone: [facility] 02-11-2022 13:41-0400 Body height 158.8 cm Jayden Connelly ICER MACHINE OPERATOR.DOG BREEDER Work Phone: [facility] 02-11-2022 13:41-0400 Body temperature 97.3 [degF] Jayden Connelly ICER MACHINE OPERATOR.DOG BREEDER Work Phone: [facility] 02-11-2022 13:41-0400 Body weight 89.18 kg Jayden Connelly ICER MACHINE OPERATOR.DOG BREEDER Work Phone: [facility] 02-11-2022 13:41-0400 Diastolic blood pressure 83 mm[Hg] Jayden Connelly ICER MACHINE OPERATOR.DOG BREEDER Work Phone: [facility] 02-11-2022 13:41-0400 Heart rate 79 /min Jayden Connelly APRN.DOG BREEDER Work Phone: [facility] 02-11-2022 13:41-0400 Respiratory rate 16 /min Jayden Connelly APRN.DOG BREEDER Work Phone: [facility] 02-11-2022 13:41-0400 SaO2% (BldA) [Mass fraction] 99 % Jayden Connelly APRN.DOG BREEDER Work Phone: [facility] 02-11-2022 13:41-0400 Systolic blood pressure 159 mm[Hg] Jayden Connelly ICER MACHINE OPERATOR.DOG BREEDER Work Phone: [facility] 12-17-2021 14:41-0400 Body height 158.8 cm Jayden Connelly APRN.DOG BREEDER Work Phone: [facility] 12-17-2021 14:41-0400 Body temperature 97.3 [degF] Jayden Connelly ICER MACHINE OPERATOR.DOG BREEDER Work Phone: [facility] 12-17-2021 14:41-0400 Body weight 87.64 kg Jayden Connelly APRN.DOG BREEDER Work Phone: [facility] 12-17-2021 14:41-0400 Diastolic blood pressure 80 mm[Hg] Jayden Connelly ICER MACHINE OPERATOR.DOG BREEDER Work Phone: [facility] 12-17-2021 14:41-0400 Heart rate 75 /min Jayden Connelly APRN.DOG BREEDER Work Phone: [facility] 12-17-2021 14:41-0400 Respiratory rate 16 /min Jayden Connelly APRN.DOG BREEDER Work Phone: [facility] 12-17-2021 14:41-0400 SaO2% (BldA) [Mass fraction] 96 % Jayden Connelly APRN.DOG BREEDER Work Phone: [facility] 12-17-2021 14:41-0400 Systolic blood pressure 154 mm[Hg] Jayden Connelly APRN.DOG BREEDER Work Phone: [facility] 11-10-2021 15:00-0400 Body height 160.02 cm Gilson Tyrel Other [facility] Other 11-10-2021 15:00-0400 Body mass index (BMI) [Ratio] 34.18 kg/m2 Gilson Tyrel Other [facility] Other 11-10-2021 15:00-0400 Body temperature 97.1 [degF] Gilson Tyrel Other [facility] Other 11-10-2021 15:00-0400 Body weight 87.54 kg Gilson Tyrel Other [facility] Other 11-10-2021 15:00-0400 Diastolic blood pressure 70 mm[Hg] Gilson Tyrel Other [facility] Other 11-10-2021 15:00-0400 Respiratory rate 18 /min Gilson Tyrel Other [facility] Other 11-10-2021 15:00-0400 SaO2% (BldA) [Mass fraction] 96 % Gilson Tyrel Other [facility] Other 11-10-2021 15:00-0400 Systolic blood pressure 154 mm[Hg] Gilson Tyrel Other [facility] Other 10-28-2021 11:27-0400 Body height 158.8 cm Rinku Ramsey MD Work Phone: [facility] 10-28-2021 11:27-0400 Body temperature 97.39 [degF] Rinku Ramsey MD Work Phone: [facility] 10-28-2021 11:27-0400 Body weight 87.82 kg Rinku Ramsey MD Work Phone: [facility] 10-28-2021 11:27-0400 Diastolic blood pressure 91 mm[Hg] Rinku Ramsey MD Work Phone: [facility] 10-28-2021 11:27-0400 Heart rate 75 /min Rinku Ramsey MD Work Phone: [facility] 10-28-2021 11:27-0400 Respiratory rate 16 /min Rinku Ramsey MD Work Phone: [facility] 10-28-2021 11:27-0400 SaO2% (BldA) [Mass fraction] 96 % Rinku Ramsey MD Work Phone: [facility] 10-28-2021 11:27-0400 Systolic blood pressure 157 mm[Hg] Rinku Ramsey MD Work Phone: [facility] Encounters Encounter Date Encounter Type Care Provider Facility Start: 09-02-2023 Refill Rinku lawrence MD Work Phone: Hematology/Oncology Comment on above: Refill Request Start: 08-28-2023 End: 08-28-2023 ambulatory RINKU RAMSEY Facility:[facility] Start: 08-28-2023 End: 08-28-2023 Office outpatient visit 15 minutes Rinku Ramsey MD Work Phone: Hematology/Oncology Comment on above: Chronic ITP (idiopat hic thrombocytopenia) (HCC) (Primary Dx); Essential hypertension; Obstructive sleep apnea syndrome; Systemic lupus erythematosus, unspecified SLE type, unspecified organ involvement status (HCC); Malaise and fatigue Start: 08-23-2023 Bamboo flowsheet Mar fontana MD Work Phone: [facility] Start: 08-23-2023 Bamboo flowsheet Mar fontana MD Work Phone: [facility] Start: 08-23-2023 End: 08-23-2023 ambulatory MAR MAYO Not Available Start: 08-23-2023 End: 08-23-2023 Office outpatient new 30 minutes Mar Mayo MD Work Phone: [facility] Comment on above: 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); Multiple perforations of left tympanic membrane Start: 08-19-2023 Chart abstracting Mar krause MD Work Phone: [facility] [place] Start: 08-16-2023 Bamboo flowsheet Karissa A McG ill CCC-A Work Phone: [facility] Start: 08-16-2023 Bamboo flowsheet Karissa A McG ill CCC-A Work Phone: [facility] Start: 08-16-2023 End: 08-16-2023 Clinical Support Karissa Nelsonill CCC-A Work Phone: [facility] Comment on above: 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); Tympanic membrane perforation, left Start: 07-17-2023 End: 07-17-2023 ambulatory RINKU RAMSEY Facility:[facility] Start: 06-28-2023 Office outpatient vi sit 15 minutes Krzysztof HERRERA [facility] [place] Start: 06-28-2023 End: 06-28-2023 ambulatory Gilson Tyrel [facility] Other Start: 06-06-2023 End: 06-06-2023 ambulatory STEPHANIE DUMONT Not Available Start: 06-05-2023 End: 06-05-2023 ambulatory Ana Hernandez PA-C Work Phone: Hematology/Oncology Comment on above: Chronic ITP (idiopat hic thrombocytopenia) (HCC) (Primary Dx); Essential hypertension; Hypertension, unspecified type Start: 06-05-2023 End: 06-05-2023 Patient encounter procedure Ana Hernandez PA-C Work Phone: [facility] Start: 05-01-2023 Refill Krista Calvo emilia [facility] Work Phone: Hematology/Oncology Comment on above: Refill Request Start: 04-20-2023 End: 04-20-2023 ambulatory RINKU RAMSEY Facility:[facility] Start: 04-20-2023 End: 04-20-2023 Office outpatient visit 25 minutes Rinku Ramsey MD Work Phone: Hematology/Oncology Comment on above: Chronic ITP (idiopat hic thrombocytopenia) (HCC) (Primary Dx); Essential hypertension Start: 04-19-2023 Telephone encounter Rinku hicks MD Work Phone: Hematology/Oncology Comment on above: Lab Orders Start: 04-05-2023 End: 04-05-2023 ambulatory Gilson Tyrel Other [facility] Other Start: 04-05-2023 Telephone encounter Gilson Tyrel [facility] Start: 03-14-2023 End: 03-14-2023 ambulatory Gilson Tyrel Other [facility] Other Start: 03-14-2023 Telephone encounter Gilson Tyrel [facility] Start: 03-09-2023 End: 03-09-2023 ambulatory RINKU ABHYANKPENNIE Facility:[facility] Start: 03-09-2023 End: 03-09-2023 Office outpatient visit 15 minutes Rinku Ramsey MD Work Phone: Hematology/Oncology Comment on above: Chronic ITP (idiopat hic thrombocytopenia) (HCC) (Primary Dx); Essential hypertension; Obstructive sleep apnea syndrome; Systemic lupus erythematosus, unspecified SLE type, unspecified organ involvement status (HCC) Start: 01-26-2023 End: 01-26-2023 [facility] Start: 01-26-2023 End: 01-26-2023 Office outpatient visit 15 minutes Rinku Ramsey MD Work Phone: Hematology/Oncology Comment on above: Chronic ITP (idiopat hic thrombocytopenia) (HCC) (Primary Dx); Hypertension, unspecified type; Obstructive sleep apnea syndrome Start: 12-15-2022 End: 12-15-2022 ambulatory RINKU RAMSEY Facility:[facility] Start: 12-15-2022 End: 12-15-2022 Office outpatient visit 15 minutes Rinku Ramsey MD Work Phone: Hematology/Oncology Comment on above: Chronic ITP (idiopat hic thrombocytopenia) (HCC) (Primary Dx) Start: 10-27-2022 End: 10-27-2022 [facility] Start: 10-27-2022 End: 10-27-2022 Office outpatient visit 15 minutes Rinku Ramsey MD Work Phone: Hematology/Oncology Comment on above: Chronic ITP (idiopat hic thrombocytopenia) (HCC) (Primary Dx) Start: 10-21-2022 Refill Rinku lawrence MD Work Phone: Hematology/Oncology Comment on above: Refill Request Start: 09-23-2022 Refill Rinku lawrence MD Work Phone: Hematology/Oncology Comment on above: Refill Request Start: 09-15-2022 End: 09-15-2022 ambulatory [facility] Facility:[facility] Start: 09-15-2022 End: 09-15-2022 Office outpatient visit 15 minutes Rinku Ramsey MD Work Phone: Hematology/Oncology Comment on above: Chronic ITP (idiopat hic thrombocytopenia) (HCC) (Primary Dx); Obstructive sleep apnea syndrome Start: 09-15-2022 Refill Rinku lawrence MD Work Phone: Hematology/Oncology Comment on above: Refill Request Start: 09-07-2022 End: 09-07-2022 ambulatory Gilson Sarah Other [facility] Other Start: 09-07-2022 Office outpatient vi sit 25 minutes Gilson Sarah [facility] [place] Start: 08-29-2022 End: 08-29-2022 ambulatory NON STAFF Facility:[facility] Start: 08-29-2022 End: 08-29-2022 ambulatory NON STAFF [facility] Work Phone: Start: 08-29-2022 End: 08-29-2022 Patient encounter procedure MD Gilson Sarah Work Phone: [facility] [place] Work Phone: Start: 08-15-2022 Refill Jayden Connelly APRN.DOG BREEDER Work Phone: Hematology/Oncology Comment on above: Refill Request Start: 08-05-2022 Refill Jayden Connelly APRN.DOG BREEDER Work Phone: Hematology/Oncology Comment on above: Refill Request Start: 08-04-2022 End: 08-04-2022 ambulatory Jayden Connelly APRN.CNP Work Phone: Hematology/Oncology Comment on above: Chronic ITP (idiopat hic thrombocytopenia) (HCC) (Primary Dx); Obstructive sleep apnea syndrome; Hypertension, unspecified type; Systemic lupus erythematosus, unspecified SLE type, unspecified organ involvement status (HCC); Malaise and fatigue; Skin lesion of right lower extremity Start: 08-04-2022 End: 08-04-2022 Patient encounter procedure Jayden Connelly APRN.CNP Work Phone: [facility] Start: 08-04-2022 Telephone encounter Jayden christiansen APRN.DOG BREEDER Work Phone: [facility] Comment on above: Referral Information (Dermatology) Start: 07-24-2022 Refill Jayden Connelly APRN.DOG BREEDER Work Phone: Hematology/Oncology Comment on above: Refill Request Start: 07-13-2022 Refill Rinku lawrence MD Work Phone: Hematology/Oncology Comment on above: Refill Request Start: 06-23-2022 End: 06-23-2022 ambulatory Rinku Ramsey MD Work Phone: Hematology/Oncology Comment on above: Chronic ITP (idiopat hic thrombocytopenia) (HCC) (Primary Dx); Hypertension, unspecified type; Obstructive sleep apnea syndrome; Systemic lupus erythematosus, unspecified SLE type, unspecified organ involvement status (HCC) Start: 06-23-2022 End: 06-23-2022 Patient encounter procedure Rinku Ramsey MD Work Phone: [facility] Start: 06-23-2022 Refill Rinku lawrence MD Work Phone: Hematology/Oncology Comment on above: Refill Request Start: 06-15-2022 Refill Jayden Connelly APRN.DOG BREEDER Work Phone: Hematology/Oncology Comment on above: Refill Request Start: 05-20-2022 Refill Rinku lawrence MD Work Phone: Hematology/Oncology Comment on above: Refill Request Start: 05-12-2022 End: 05-12-2022 ambulatory Jayden Connelly APRN.DOG BREEDER Work Phone: Hematology/Oncology Comment on above: Chronic ITP (idiopat hic thrombocytopenia) (HCC) (Primary Dx); Obstructive sleep apnea syndrome; Essential hypertension Start: 05-12-2022 End: 05-12-2022 Patient encounter procedure Jayden Connelly APRN.CNP Work Phone: [facility] Start: 04-24-2022 Refill Jayden Connelly APRN.DOG BREEDER Work Phone: Hematology/Oncology Comment on above: Refill [...] Refill Request Start: 03-05-2022 Refill Jayden Connelly APRN.DOG BREEDER Work Phone: Hematology/Oncology Comment on above: Refill Request Start: 02-11-2022 End: 02-11-2022 ambulatory Jayden Connelly APRN.DOG BREEDER Work Phone: Hematology/Oncology Comment on above: Chronic ITP (idiopat hic thrombocytopenia) (HCC) (Primary Dx); Essential hypertension; Obstructive sleep apnea syndrome; Systemic lupus erythematosus, unspecified SLE type, unspecified organ involvement status (HCC) Start: 02-11-2022 End: 02-11-2022 Patient encounter procedure Jayden Connelly APRN.DOG BREEDER Work Phone: [facility] Start: 02-03-2022 Refill Jayden Connelly APRN.DOG BREEDER Work Phone: Hematology/Oncology Comment on above: Refill Request Start: 01-15-2022 Refill Jayden Connelly ICER MACHINE OPERATOR.DOG BREEDER Work Phone: Hematology/Oncology Comment on above: Refill Request Start: 01-09-2022 Refill Jayden Connelly APRN.DOG BREEDER Work Phone: Hematology/Oncology Comment on above: Refill Request Start: 12-17-2021 End: 12-17-2021 ambulatory Jayden Connelly APRN.DOG BREEDER Work Phone: Hematology/Oncology Comment on above: Chronic ITP (idiopat hic thrombocytopenia) (HCC) (Primary Dx); Hypertension, unspecified type; Essential hypertension; Obstructive sleep apnea syndrome; Lung nodules; Systemic lupus erythematosus, unspecified SLE type, unspecified organ involvement status (HCC) Start: 12-17-2021 End: 12-17-2021 Patient encounter procedure Jayden Connelly APRN.DOG BREEDER Work Phone: [facility] Start: 11-10-2021 End: 11-10-2021 ambulatory Gilson Tyrel Other [facility] Other Start: 11-10-2021 Office outpatient ne w 45 minutes Gilson Tyrel [facility] [place] Start: 10-28-2021 End: 10-28-2021 ambulatory Rinku Ramsey MD Work Phone: Hematology/Oncology Comment on above: Chronic ITP (idiopat hic thrombocytopenia) (HCC) (Primary Dx); Essential hypertension; Obstructive sleep apnea syndrome; Lung nodules; Systemic lupus erythematosus, unspecified SLE type, unspecified organ involvement status (HCC) Start: 10-28-2021 End: 10-28-2021 Patient encounter procedure Rinku Ramsey MD Work Phone: [facility] Start: 10-25-2021 ambulatory Mary Ellen Tidwell MA [facility] Comment on above: Population Health Na vigation Outreach (ACO PCP) Start: 10-19-2021 Refill Jayden Connelly APRN.[facility] Work Phone: Hematology/Oncology Comment on above: Refill Request Start: 05-07-2021 Telephone encounter Luanne Salcedo [facility] Work Phone: [facility] Comment on above: Medication Follow-up ([place] free drug application faxed) Start: 05-24-2016 End: 05-25-2016 Ambulatory COTY WRIGHT Facility:[facility] Procedures Date Procedure Procedure Detail Performing Clinician Start: 08-16-2023 AUDITORY FUNCTION TESTS Karissa Astudillo CCC-A Work Phone: Start: 11-10-2023 Mammography Karissa Hussein CCC-A Work Phone: Start: 08-29-2022 Ultrasonography of b ilateral kidneys MD Gilson Sarah Work Phone: Start: 07-25-2022 Colonoscopy Jayden christiansen ICER MACHINE OPERATOR.DOG BREEDER Work Phone: Start: 02-11-2022 Adult depression scr eening assessment Jayden Connelly ICER MACHINE OPERATOR.DOG BREEDER Work Phone: Start: 08-05-2021 Adult depression scr eening assessment Jayden Connelly ICER MACHINE OPERATOR.DOG BREEDER Work Phone: Start: 03-30-2017 Lipid 1996 panel - S henok or Plasma Rinku Ramsey MD Work Phone: Plan of Treatment Date Care Activity Detail Author Start: 07-25-2032 Screening for malign ant neoplasm of colon [facility] Start: 08-28-2026 [facility] Start: 06-05-2026 [facility] Start: 04-20-2026 [facility] Start: 03-09-2026 DIABETES SCREEN DIABETES SCREEN [facility] Start: 03-09-2026 [facility] Start: 01-26-2026 DIABETES SCREEN DIABETES SCREEN [facility] Start: 12-15-2025 DIABETES SCREEN DIABETES SCREEN [facility] Start: 10-27-2025 DIABETES SCREEN DIABETES SCREEN [facility] Start: 09-15-2025 DIABETES SCREEN DIABETES SCREEN [facility] Start: 08-04-2025 DIABETES SCREEN DIABETES SCREEN [facility] Start: 06-23-2025 DIABETES SCREEN DIABETES SCREEN [facility] Start: 05-12-2025 DIABETES SCREEN DIABETES SCREEN [facility] Start: 03-31-2025 DIABETES SCREEN DIABETES SCREEN [facility] Start: 02-11-2025 DIABETES SCREEN DIABETES SCREEN [facility] Start: 12-17-2024 DIABETES SCREEN DIABETES SCREEN [facility] Start: 10-28-2024 DIABETES SCREEN DIABETES SCREEN [facility] Start: 09-16-2024 DIABETES SCREEN DIABETES SCREEN [facility] Start: 05-19-2024 Screening for malign ant neoplasm of breast Mammogram [facility] Start: 05-08-2024 Medicare Annual Well ness (AWV) Medicare Annual Wellness (AWV) [facility] Start: 08-23-2023 End: 08-23-2023 Patient encounter procedure 08/23/2023 10:00 AM EST Office Visit [facility] [address] [facility] [address] [place] [id number] Mar Mayo MD [address] [facility] [address] [place] [address] [facility] Start: 07-25-2023 Colonoscopy COLONOSCOPY [facility] Start: 07-25-2023 COLORECTAL CANCER SCREENING COLORECTAL CANCER SCREENING [facility] Start: 07-25-2023 Screening for malign ant neoplasm of colon [facility] Start: 07-21-2023 Covid-19 Vaccine () Covid-19 Vaccine () [facility] Start: 07-17-2023 End: 10-16-2023 CBC W Auto Differential panel - Blood CBC + DIFF Lab Routine Chronic ITP (idiopathic thrombocytopenia) (HCC) Essential hypertension Expected: 07/17/2023 (Approximate), Expires: 10/16/2023 [facility] Work Phone: Comment on above: Expected: 07/17/2023 (Approximate), Expires: 10/16/2023 Start: 07-17-2023 End: 10-16-2023 Comprehensive metabolic 2000 panel - Serum or Plasma COMP METABOLIC PANEL Lab Routine Chronic ITP (idiopathic thrombocytopenia) (HCC) Essential hypertension Expected: 07/17/2023 (Approximate), Expires: 10/16/2023 [facility] Work Phone: Comment on above: Expected: 07/17/2023 (Approximate), Expires: 10/16/2023 Start: 07-10-2023 Advance Directive Discussion Advance Directive Discussion [facility] Start: 07-10-2023 Depression Assessment Depression Ass essment [facility] Start: 04-20-2023 End: 04-19-2024 CBC W Auto Differential panel - Blood CBC + DIFF Lab Routine Chronic ITP (idiopathic thrombocytopenia) (HCC) Expected: 04/20/2023 (Approximate), Expires: 04/19/2024 [facility] Work Phone: Comment on above: Expected: 04/20/2023 (Approximate), Expires: 04/19/2024 Start: 04-20-2023 End: 04-19-2024 Comprehensive metabolic 2000 panel - Serum or Plasma COMP METABOLIC PANEL Lab Routine Chronic ITP (idiopathic thrombocytopenia) (HCC) Expected: 04/20/2023 (Approximate), Expires: 04/19/2024 [facility] Work Phone: Comment on above: Expected: 04/20/2023 (Approximate), Expires: 04/19/2024 Start: 04-20-2023 End: 04-19-2024 Lactate dehydrogenase [Enzymatic activity/volume] in Serum or Plasma LD LACTATE DEHYDRO Lab Routine Chronic ITP (idiopathic thrombocytopenia) (HCC) Expected: 04/20/2023 (Approximate), Expires: 04/19/2024 [facility] Work Phone: Comment on above: Expected: 04/20/2023 (Approximate), Expires: 04/19/2024 Start: 03-10-2023 Covid-19 Vaccine ( season) Covid-19 Vaccine ( season) [facility] Start: 03-10-[address] [facility] Start: 02-11-2023 Adult depression screening assessment DEPRESSION SCREENING [facility] Start: 08-05-2022 Adult depression screening assessment DEPRESSION SCREENING [facility] Start: 08-04-2022 End: 06-23-2023 CBC W Auto Differential panel - Blood CBC + DIFF Lab Routine Chronic ITP (idiopathic thrombocytopenia) (HCC) Expected: 08/04/2022 (Approximate), Expires: 06/23/2023 [facility] Work Phone: Comment on above: Expected: 08/04/2022 (Approximate), Expires: 06/23/2023 Start: 08-04-2022 End: 06-23-2023 Comprehensive metabolic 2000 panel - Serum or Plasma COMP METABOLIC PANEL Lab Routine Chronic ITP (idiopathic thrombocytopenia) (HCC) Expected: 08/04/2022 (Approximate), Expires: 06/23/2023 [facility] Work Phone: Comment on above: Expected: 08/04/2022 (Approximate), Expires: 06/23/2023 Start: 08-04-2022 End: 06-23-2023 Lactate dehydrogenase [Enzymatic activity/volume] in Serum or Plasma LD LACTATE DEHYDRO Lab Routine Chronic ITP (idiopathic thrombocytopenia) (HCC) Expected: 08/04/2022 (Approximate), Expires: 06/23/2023 [facility] Work Phone: Comment on above: Expected: 08/04/2022 (Approximate), Expires: 06/23/2023 Start: 08-04-2022 End: 10-04-2022 Nuclear Ab [Presence] in Serum by Immunoassay RAAD PANEL BLOOD SCRN Lab Routine Systemic lupus erythematosus, unspecified SLE type, unspecified organ involvement status (HCC) Expected: 08/04/2022 (Approximate), Expires: 10/04/2022 [facility] Work Phone: Comment on above: Expected: 08/04/2022 (Approximate), Expires: 10/04/2022 Start: 07-10-2022 ADVANCE DIRECTIVE DISCUSSION ADVANCE DIRECTIVE DISCUSSION [facility] Start: 07-10-2022 DEPRESSION ASSESSMENT DEPRESSION ASS ESSMENT [facility] Start: 06-08-2022 COVID-19 VACCINE (5 - Booster for Moderna series) COVID-19 VACCINE (5 - Booster for Moderna series) [facility] Start: 04-02-2022 COVID-19 VACCINE (5 - Booster for Moderna series) COVID-19 VACCINE (5 - Booster for Moderna series) [facility] Start: 04-02-2022 COVID-19 VACCINE (5 - Moderna risk series) COVID-19 VACCINE (5 - Moderna risk series) [facility] Start: 03-30-2022 Lipid 1996 panel - S henok or Plasma Lipid Screening [facility] Start: 03-30-2022 Lipid panel Lipid Screening [facility] Start: 03-30-2022 LIPID SCREEN LIPID SCREEN [facility] Start: 03-25-2022 End: 05-25-2022 CBC W Auto Differential panel - Blood CBC + DIFF Lab Routine Chronic ITP (idiopathic thrombocytopenia) (HCC) Essential hypertension Obstructive sleep apnea syndrome Systemic lupus erythematosus, unspecified SLE type, unspecified organ involvement status (HCC) Expected: 03/25/2022, Expires: 05/25/2022 [facility] Work Phone: Comment on above: Expected: 03/25/2022 , Expires: 05/25/2022 Start: 03-25-2022 End: 05-25-2022 Comprehensive metabolic 2000 panel - Serum or Plasma COMP METABOLIC PANEL Lab Routine Chronic ITP (idiopathic thrombocytopenia) (HCC) Essential hypertension Obstructive sleep apnea syndrome Systemic lupus erythematosus, unspecified SLE type, unspecified organ involvement status (HCC) Expected: 03/25/2022, Expires: 05/25/2022 [facility] Work Phone: Comment on above: Expected: 03/25/2022 , Expires: 05/25/2022 Start: 03-10-2022 Influenza vaccination INFLUENZA (#1) [facility] Start: 01-28-2022 End: 03-30-2022 CBC W Auto Differential panel - Blood CBC + DIFF Lab Routine Hypertension, unspecified type Chronic ITP (idiopathic thrombocytopenia) (HCC) Essential hypertension Obstructive sleep apnea syndrome Lung nodules Systemic lupus erythematosus, unspecified SLE type, unspecified organ involvement status (HCC) Expected: 01/28/2022, Expires: 03/30/2022 [facility] Work Phone: Comment on above: Expected: 01/28/2022 , Expires: 03/30/2022 Start: 01-28-2022 End: 03-30-2022 Comprehensive metabolic 2000 panel - Serum or Plasma COMP METABOLIC PANEL Lab Routine Hypertension, unspecified type Chronic ITP (idiopathic thrombocytopenia) (HCC) Essential hypertension Obstructive sleep apnea syndrome Lung nodules Systemic lupus erythematosus, unspecified SLE type, unspecified organ involvement status (HCC) Expected: 01/28/2022, Expires: 03/30/2022 [facility] Work Phone: Comment on above: Expected: 01/28/2022 , Expires: 03/30/2022 Start: 01-28-2022 End: 03-30-2022 Lactate dehydrogenase [Enzymatic activity/volume] in Serum or Plasma LD LACTATE DEHYDRO Lab Routine Hypertension, unspecified type Chronic ITP (idiopathic thrombocytopenia) (HCC) Essential hypertension Obstructive sleep apnea syndrome Lung nodules Systemic lupus erythematosus, unspecified SLE type, unspecified organ involvement status (HCC) Expected: 01/28/2022, Expires: 03/30/2022 [facility] Work Phone: Comment on above: Expected: 01/28/2022 , Expires: 03/30/2022 Start: 12-09-2021 End: 10-28-2022 CBC W Auto Differential panel - Blood CBC + DIFF Lab Routine Chronic ITP (idiopathic thrombocytopenia) (HCC) Expected: 12/09/2021 (Approximate), Expires: 10/28/2022 [facility] Work Phone: Comment on above: Expected: 12/09/2021 (Approximate), Expires: 10/28/2022 Start: 12-09-2021 End: 10-28-2022 Comprehensive metabolic 2000 panel - Serum or Plasma COMP METABOLIC PANEL Lab Routine Chronic ITP (idiopathic thrombocytopenia) (HCC) Expected: 12/09/2021 (Approximate), Expires: 10/28/2022 [facility] Work Phone: Comment on above: Expected: 12/09/2021 (Approximate), Expires: 10/28/2022 Start: 12-09-2021 End: 10-28-2022 Lactate dehydrogenase [Enzymatic activity/volume] in Serum or Plasma LD LACTATE DEHYDRO Lab Routine Chronic ITP (idiopathic thrombocytopenia) (HCC) Expected: 12/09/2021 (Approximate), Expires: 10/28/2022 [facility] Work Phone: Comment on above: Expected: 12/09/2021 (Approximate), Expires: 10/28/2022 Start: 09-14-2021 COVID-19 VACCINE (4 - Booster for Moderna series) COVID-19 VACCINE (4 - Booster for Moderna series) [facility] Start: 07-10-2021 ADVANCE DIRECTIVE DISCUSSION ADVANCE DIRECTIVE DISCUSSION [facility] Start: 07-10-2021 DEPRESSION ASSESSMENT DEPRESSION ASS ESSMENT [facility] Start: 02-17-2018 Screening for malign ant neoplasm of breast Mammogram Screening [facility] Start: 12-07-2015 BONE DENSITY BONE DENSITY [facility] Start: 12-07-2015 Bone Density Screening Bone Density Screening [facility] Start: 12-07-2015 Screening for osteoporosis Bone Density Screening [facility] Start: 2010 RSV Vaccine (1 - 1-d ose 60+ series) RSV Vaccine (1 - 1-dose 60+ series) [facility] Start: 2000 SHINGRIX VACCINE (1 of 2) SHINGRIX VACCINE (1 of 2) [facility] Start: 12-07-1995 COLOGUARD (FIT-DNA) COLOGUARD (FIT-D NA) [facility] Start: 12-07-1995 Colonoscopy COLONOSCOPY [facility] Start: 12-07-1995 COLORECTAL CANCER SCREENING COLORECTAL CANCER SCREENING [facility] Start: 12-07-[address] COLONOGRAPHY [facility] Start: 12-07-1995 FECAL OCCULT BLOOD FECAL OCCULT BLOO D [facility] Start: 12-07-1995 Screening for malign ant neoplasm of colon [facility] Start: 12-07-1995 SIGMOIDOSCOPY SIGMOIDOSCOPY [facility] Start: 1990 Mammography [facility] Start: 1969 SHINGRIX VACCINE (1 of 2) SHINGRIX VACCINE (1 of 2) [facility] Start: 1969 Urine microalbumin profile [facility] Start: 1968 ANNUAL PCP TEAM ENGRAVER SEALS UBALDO DISEASE VISIT ANNUAL PCP TEAM CHRONIC DISEASE VISIT [facility] Start: 1968 BP CONTROLLED (<130/80) BP CONTROLLE D (<130/80) [facility] Start: 1950 Screening for malign ant neoplasm of colon [facility] End: 03-31-2023 CBC W Auto Differential panel - Blood CBC + DIFF Lab Routine Chronic ITP (idiopathic thrombocytopenia) (HCC) Obstructive sleep apnea syndrome Every 6 weeks for 9 Occurrences starting 03/31/2022 until 03/31/2023 [facility] Work Phone: Comment on above: Every 6 weeks for 9 Occurrences starting 03/31/2022 until 03/31/2023 End: 04-19-2024 CBC W Auto Differential panel - Blood CBC + DIFF Lab Routine Chronic ITP (idiopathic thrombocytopenia) (HCC) Every 6 weeks for 9 Occurrences starting 04/20/2023 until 04/19/2024 [facility] Work Phone: Comment on above: Every 6 weeks for 9 Occurrences starting 04/20/2023 until 04/19/2024 End: 04-19-2024 Cobalamin (Vitamin B12) [Mass/volume] in Serum or Plasma VITAMIN B12 BLOOD Lab Routine Chronic ITP (idiopathic thrombocytopenia) (HCC) Every 6 weeks for 9 Occurrences starting 04/20/2023 until 04/19/2024 [facility] Work Phone: Comment on above: Every 6 weeks for 9 Occurrences starting 04/20/2023 until 04/19/2024 End: 03-31-2023 Comprehensive metabolic 2000 panel - Serum or Plasma COMP METABOLIC PANEL Lab Routine Chronic ITP (idiopathic thrombocytopenia) (HCC) Obstructive sleep apnea syndrome Every 6 weeks for 9 Occurrences starting 03/31/2022 until 03/31/2023 [facility] Work Phone: Comment on above: Every 6 weeks for 9 Occurrences starting 03/31/2022 until 03/31/2023 End: 04-19-2024 Comprehensive metabolic 2000 panel - Serum or Plasma COMP METABOLIC PANEL Lab Routine Chronic ITP (idiopathic thrombocytopenia) (HCC) Every 6 weeks for 9 Occurrences starting 04/20/2023 until 04/19/2024 [facility] Work Phone: Comment on above: Every 6 weeks for 9 Occurrences starting 04/20/2023 until 04/19/2024 End: 04-19-2024 Ferritin [Mass/volume] in Serum or Plasma FERRITIN BLD Lab Routine Chronic ITP (idiopathic thrombocytopenia) (HCC) Every 6 weeks for 9 Occurrences starting 04/20/2023 until 04/19/2024 [facility] Work Phone: Comment on above: Every 6 weeks for 9 Occurrences starting 04/20/2023 until 04/19/2024 End: 04-19-2024 Folate [Mass/volume] in Serum or Plasma FOLATE SERUM Lab Routine Chronic ITP (idiopathic thrombocytopenia) (HCC) Every 6 weeks for 9 Occurrences starting 04/20/2023 until 04/19/2024 [facility] Work Phone: Comment on above: Every 6 weeks for 9 Occurrences starting 04/20/2023 until 04/19/2024 End: 04-19-2024 Iron and Iron binding capacity panel - Serum or Plasma IRON + TIBC Lab Routine Chronic ITP (idiopathic thrombocytopenia) (HCC) Every 6 weeks for 9 Occurrences starting 04/20/2023 until 04/19/2024 [facility] Work Phone: Comment on above: Every 6 weeks for 9 Occurrences starting 04/20/2023 until 04/19/2024 [facility] Immunizations Immunization Date Immunization Notes Care Provider [facility] 04-20-2022 influenza, high-dose , quadrivalent vaccine (FLUZONE HIGH DOSE QUADRIVALENT) Jayden Connelly APRN.DOG BREEDER Work Phone: [facility] 04-20-2022 influenza virus vacc ine, unspecified formulation Rinku Ramsey MD Work Phone: [facility] 03-23-2021 influenza, high-dose , quadrivalent vaccine (FLUZONE HIGH DOSE QUADRIVALENT) Jayden Connelly APRN.DOG BREEDER Work Phone: [facility] 10-17-2020 COVID-19 vaccine, fu ll dose (MODERNA) Jayden Connelly APRN.DOG BREEDER Work Phone: [facility] 09-19-2020 COVID-19 vaccine, fu ll dose (MODERNA) Jayden Connelly APRN.DOG BREEDER Work Phone: [facility] 03-18-2020 influenza, high-dose , quadrivalent vaccine (FLUZONE HIGH DOSE QUADRIVALENT) Jayden Connelly APRN.DOG BREEDER Work Phone: [facility] 04-01-2019 influenza, high dose seasonal, preservative-free Jayden Connelly APRN.DOG BREEDER Work Phone: [facility] 04-01-2019 pneumococcal polysaccharide vaccine, 23 valent Jayden Godwin ICER MACHINE OPERATOR.DOG BREEDER Work Phone: [facility] 03-23-2018 influenza, high dose seasonal, preservative-free Jayden Connelly ICER MACHINE OPERATOR.DOG BREEDER Work Phone: [facility] 03-23-2018 pneumococcal conjuga te vaccine, 13 valent Jayden Connelly ICER MACHINE OPERATOR.DOG BREEDER Work Phone: [facility] 04-08-2017 influenza, high dose seasonal, preservative-free Jayden Connelly ICER MACHINE OPERATOR.DOG BREEDER Work Phone: [facility] 09-06-2016 pneumococcal conjuga te vaccine, 13 valent Jayden Connelly ICER MACHINE OPERATOR.DOG BREEDER Work Phone: [facility] Payers Date Payer Category Payer Self-pay [id number] 2021 Medicare UHC AAR MEDICAR E UHC AARP MEDICARE HMO [id number] 2021-[facility] [phone] [address] [address] [place] [address] [facility] [id number] 2021 Medicare [id number] 2021 Private Health Insurance [id number] 2015 Medicare MEDICARE MEDICAR E A AND B [id number] 2015-2021 [address] [address] [place] [address] Medicare [id number] 1950 Unknown [id number] 1950 Unknown [id number] 1950 Unknown [id number] 259 Medicare [id number] Medicare [id number] Medicare [id number] Unknown [facility] [id number] Unknown [id number] 31 Unknown [id number] Social History Date Type Detail Facility Start: 09-16-2021 End: 05-12-2022 Tobacco smoking status KYIS Light tobacco smoker [facility] History of tobacco use Cigarette Smoker [facility] Start: 09-16-2021 End: 05-12-2022 Tobacco use and exposure Smokeless tobacco non-user [facility] Start: 09-16-2021 End: 06-05-2023 Alcohol intake Current non-drinker of alcohol (finding) [facility] Start: 1950 Sex Assigned At Not on file [facility] Start: 10-18-2021 End: 05-12-2022 Exposure to SARS-CoV-2 (event) Not sure [facility] Start: 03-03-2016 End: 06-06-2023 Tobacco smoking status [facility] Smokes tobacco daily [facility] Start: 12-15-2022 End: 01-26-2023 Sex Assigned At [facility] History of tobacco use Passive smoker [facility] Start: 1950 Sex Assigned At Female F [facility] Start: 12-15-2022 End: 01-26-2023 History of Social function [facility] Adult Depression Screening Assessment 0 [facility] Start: 08-16-2023 End: 08-23-2023 Alcohol intake Lifetime non-drinker (finding) [facility] Clinical Notes 05-12-2021 to 09-04-2023 Telephone Encounter - Jayden Connelly APRN.DOG BREEDER - 09/04/2023 12:27 PM ESTPatient InstructionsAbRinku chapa MD - 08/28/2023 2:45 PM ELLEHivishal Mayo MD - 08/23/2023 10:00 AM EST Note Date & Type Note Facility 09-04-2023 Miscellaneous Notes The following approved medication requests have been transmitted electronically. Requested Prescriptions Signed Prescriptions Disp Refills losartan (COZAAR) 25 mg tablet 180 tablet 3 Sig: take 2 tablets by mouth every day at bedtime Authorizing Provider: JAYDEN CONNELLY APRN.DOG BREEDER documented in this encounter [facility] 08-28-2023 Note HNO ID: [id number] Author: RINKU RAMSEY MD Service: ? Author Type: Physician Type: Progress Notes Filed: 08/28/2023 19:35 Note Text: NAME: Andrei Leo CLINIC NO.: [id number] DATE OF SERVICE: August 28, 2023 (Joon) Some elements in this clinic note that are critical to medical decision making have been carefully reviewed and included from a prior clinic note dated: July 17, 2023 (Joon) Additional Clinicians involved in Paulalicia Leo's care: Dr. Shay, Dr. Deluna DIAGNOSIS: Chronic ITP ASSESSMENT: 1. Thrombocytopenia (HCC) - (primary diagnosis) She has chronic ITP. She [...] respond to Tavalisse started 05/2021. 2. Pulmonary nodules: 12/31/2020 CT Chest stable. No new findings. 3. Lupus (HCC) - She is asymptomatic from Lupus of the [...] Follow up in 6 weeks with labs. HPI: Case History: 03/29/2023 - US Renal Bilateral: Normal-sized kidneys without hydronephrosis. Small bilateral renal cysts, one with calcifications along the wall on the left. 03/12/2023 - CT A/P: No calculi. No hydronephrosis or hydroureter. Reasonably well-defined renal hypodensities. Tiny hyperdensity peripherally in the right kidney may represent a very small cyst containing proteinaceous/hemorrhagic material. No GI obstruction. No focally thickened loop of bowel. No fluid collections in the abdomen/pelvis. Infrarenal 31 mm AAA. 11/20/2021 - Ultrasound retroperitoneal complete: No evidence of echogenic calculi or hydronephrosis. There are bilateral renal cysts. Measurements as described above. 05/14/2021-Current - Tavalisse 12/31/2020 - CT Chest: Multiple subcentimeter nodular opacities measuring up to 7 mm (30-40) stable since 12/19/2019. If clinically indicated, consider one-year follow-up. No interval change since 12/19/2019. 10/31/2019-11/21/2019 - Weekly Rituxan x 4 09/13/2019 - Bone marrow sternal aspirate: Bone marrow aspirate, clot section and peripheral blood (A-B): Non-diagnostic lymphoid aggregates, see comment. Unremarkable maturing trilineage hematopoiesis. 09/04/2019 - CT A/P: No evidence of bowel obstruction or pericolic [...] bilateral renal cysts. Subcentimeter right adrenal myelolipoma. 04/11/2019 - Plaquenil which she stopped 01/2019 - Prednisone 2018 - Rituxan X 4 Updated Visit, August 28, 2023: Andrei returns today. Labs look good, BP is good. She notes she had another episode of hypotension recently. She reports leg, hip, and back pain, and still feels weakness in the back of her legs. She notes she has dizzy spells that may be related to an ear issue - following with ENT. Updated Visit, July 17, 2023: Andrei returns today for follow up. She reports that on she had an episode of hypotension while she was cooking and felt like she was going to lose consciousness. Her BP returned to normal after sitting down for a half hour or so, it is normal today. Her , daughter, and brother all came down with Covid around that time as well. Otherwise, she has been doing well. The back pain she'd been having has resolved. She has been having some weakness when moving around a lot in the backs of her knees. She is taking Ca and Vitamin D, in addition to Fosamax, for her osteoporosis. We reviewed her labs, which showed slight improvement in her anemia. Chemistries and other labs still in process. We discussed she does't have a need for B12 or folic acid replacement at this time, but we can monitor this. Updated Visit, June 05, 2023: Andrei returns for follow up. Remains on Tavalisse 100 mg BID. She reports having a mammogram and dexa scan at [facility] per her PCP. She states that she was told she has osteoporosis and is following up with PCP for treatment of this. (more content not included)... [facility] 08-28-2023 Instructions Rinku Ramsey MD - 08/28/2023 2:54 PM EST Continue Tavalisse 100 mg twice daily. Follow up in 6 weeks with labs. documented in this encounter [facility] 08-28-2023 History of Presen t illness Narrative Images from the original note were not included. NAME: Andrei Leo NO.: [id number] DATE OF SERVICE: August 28, 2023 (Joon) Some elements in this clinic note that are critical to medical decision making have been carefully reviewed and included from a prior clinic note dated: July 17, 2023 (Joon) Additional Clinicians involved in Andrei Leo's care: Dr. Shay, Dr. Deluna DIAGNOSIS: Chronic ITP ASSESSMENT: 1. Thrombocytopenia (HCC) - (primary diagnosis) She has chronic ITP. She [...] respond to Tavalisse started 05/2021. 2. Pulmonary nodules: 12/31/2020 CT Chest stable. No new findings. 3. Lupus (HCC) - She is asymptomatic from Lupus of the [...] Follow up in 6 weeks with labs. HPI: Case History: 03/29/2023 - US Renal Bilateral: Normal-sized kidneys without hydronephrosis. Small bilateral renal cysts, one with calcifications along the wall on the left. 03/12/2023 - CT A/P: No calculi. No hydronephrosis or hydroureter. Reasonably well-defined renal hypodensities. Tiny hyperdensity peripherally in the right kidney may represent a very small cyst containing proteinaceous/hemorrhagic material. No GI obstruction. No focally thickened loop of bowel. No fluid collections in the abdomen/pelvis. Infrarenal 31 mm AAA. 11/20/2021 - Ultrasound retroperitoneal complete: No evidence of echogenic calculi or hydronephrosis. There are bilateral renal cysts. Measurements as described above. 05/14/2021-Current - Tavalisse 12/31/2020 - CT Chest: Multiple subcentimeter nodular opacities measuring up to 7 mm (30-40) stable since 12/19/2019. If clinically indicated, consider one-year follow-up. No interval change since 12/19/2019. 10/31/2019-11/21/2019 - Weekly Rituxan x 4 09/13/2019 - Bone marrow sternal aspirate: Bone marrow aspirate, clot section and peripheral blood (A-B): Non-diagnostic lymphoid aggregates, see comment. Unremarkable maturing trilineage hematopoiesis. 09/04/2019 - CT A/P: No evidence of bowel obstruction or pericolic [...] bilateral renal cysts. Subcentimeter right adrenal myelolipoma. 04/11/2019 - Plaquenil which she stopped 01/2019 - Prednisone 2018 - Rituxan X 4 Updated Visit, August 28, 2023: Andrei returns today. Labs look good, BP is good. She notes she had another episode of hypotension recently. She reports leg, hip, and back pain, and still feels weakness in the back of her legs. She notes she has dizzy spells that may be related to an ear issue - following with ENT. Updated Visit, July 17, 2023: Andrei returns today for follow up. She reports that on she had an episode of hypotension while she was cooking and felt like she was going to lose consciousness. Her BP returned to normal after sitting down for a half hour or so, it is normal today. Her , daughter, and brother all came down with Covid around that time as well. Otherwise, she has been doing well. The back pain she'd been having has resolved. She has been having some weakness when moving around a lot in the backs of her knees. She is taking Ca and Vitamin D, in addition to Fosamax, for her osteoporosis. We reviewed her labs, which showed slight improvement in her anemia. Chemistries and other labs still in process. We discussed she does't have a need for B12 or folic acid replacement at this time, but we can monitor this. Updated Visit, June 05, 2023: Andrei returns for follow up. Remains on Tavalisse 100 mg BID. She reports having a mammogram and dexa scan at [facility] per her PCP. 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 Overall, she is doing well [...] they are slightly increased. Got back from [place] and saw her sisters and had a [...] leg cramps. Overall, she is doing well. Updated Visit, October 28, 2021: No AE's [...] why she was going to see a line department supervisor for her blood pressure. Patient also has [...] and if she is making adequate platelets. REVIEW OF SYSTEMS Per HPI and otherwise negative by full review of organ systems. ECOG PERFORMANCE STATUS: 0 PHYSICAL EXAMINATION: Vitals: BP 132/78[Manual-left arm[ Pulse 85 Temp (Src) 97.6 (Temporal) Resp 16 Wt 192 lb 7.4 oz (87.3kg) SpO2 97% Body surface area is 1.96 meters squared. [...] Vac* Unknown Vancomycin Unknown Burning sensation MEDICATIONS: ergocalciferol 50,000 unit capsule (VITAMIN D2, DRISDOL) Take 1 capsule by mouth one time a week. alendronate (FOSAMAX) 70 mg tablet PLEASE SEE ATTACHED FOR DETAILED DIRECTIONS fostamatinib (TAVALISSE) 100 mg tablet Take 1 [...] Take 25 mg by mouth once daily. cholecalciferol, vitamin D3, (VITAMIN D3 ORAL) Take by mouth. benzonatate (TESSALON PERLE) 100 mg capsule TAKE 1 CAPSULE BY MOUTH EVERY 6 HOURS NEEDED FOR COUGH. (Patient not taking: Reported on 08/28/2023) LABORATORY VALUES: WBC (k/uL) Date Value 08/28/2023 5.37 RBC (m/uL) Date Value 08/28/2023 3.25 (L) Hemoglobin (g/dL) Date Value 08/28/2023 10.4 (L) Hematocrit (%) Date Value 08/28/2023 32.5 (L) MCV (fL) Date Value 08/28/2023 100.0 MCH (pg) Date Value 08/28/2023 32.0 MCHC (g/dL) Date Value 08/28/2023 32.0 RDW-CV (%) Date Value 08/28/2023 14.3 Platelet Count (k/uL) Date Value 08/28/2023 124 (L) MPV (fL) Date Value 08/28/2023 9.3 Glucose (mg/dL) Date Value 08/28/2023 101 (H) BUN (mg/dL) Date Value 08/28/2023 25 (H) Creatinine (mg/dL) Date Value 08/28/2023 1.02 (H) Sodium (mmol/L) Date Value 08/28/2023 138 Potassium (mmol/L) Date Value 08/28/2023 4.2 Chloride (mmol/L) Date Value 08/28/2023 106 (H) CO2 (mmol/L) Date Value 08/28/2023 25 Protein, Total (g/dL) Date Value 08/28/2023 7.5 Albumin (g/dL) Date Value 08/28/2023 3.9 Calcium, Total (mg/dL) Date Value 08/28/2023 10.0 Alkaline Phosphatase (U/L) Date Value 08/28/2023 65 Bilirubin, Total (mg/dL) Date Value 08/28/2023 0.3 AST (U/L) Date Value 08/28/2023 27 ALT (U/L) Date Value 08/28/2023 19 Cholesterol, Total (mg/dL) Date Value 03/30/2017 171 [...] which included preparing to see the patient, [id number] patient care, completing clinical documentation, performing a medically appropriate examination, counseling and educating the patient/family/caregiver, ordering medications, tests, or procedures, independently interpreting results (not separately reported), communicating results to the patient/family/caregiver, and care coordination (not separately reported). Rinku Ramsey MD, CPE Hematology and Oncology Services Provided at: [place], [place] Scribe Attestation: This note was scribed by Mali Carr on August 28, 2023 under the direction and supervision of Dr. Rinku Ramsey. I attest that all of the information documented is correct to the best of my knowledge. Provider Attestation: I, Rinku Ramsey MD, attest that all information documented by the above scribe is correct, and was supervised by me and under my direction. CC: Dr. Chadd Deluna documented in this encounter [facility] 08-23-2023 History of Presen t illness Narrative Subjective Patient ID: Andrei Leo is a 72 y.o. female who presents for Ear Problem (Left TM perf). Pt had an apparent left tympanoplasty and OCR in December 2015. Pt states she was told there would need to be revision surgery. Saw another ENT in [place] who was to do the revision, but never performed. No otorrhea. 08/16 audio showed mild to moderate RT SNHL and severe left mixed HL Review of Systems All other systems reviewed and are negative. Family History Problem Relation Name Age of Onset Diabetes Mother Hypertension Mother Heart disease Mother Cancer Father Breast cancer Sister Heart disease Sibling Cancer Sibling Active Ambulatory Problems Diagnosis Date Noted Chronic ITP (idiopathic thrombocytopenia) (CMS/HCC) 05/26/2016 Disease of thyroid gland (CMS/HCC) 06/28/2022 Essential hypertension (CMS/HCC) 05/13/2021 Family history of breast cancer 04/13/2017 Lupus (CMS/HCC) 03/03/2016 Nocturnal leg cramps 10/05/2017 Obstructive sleep apnea syndrome 05/13/2021 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CMS/HCC) 06/28/2022 Tobacco dependence 06/28/2022 Dry mouth 01/05/2017 Compression syndrome, nerve 06/28/2022 Abnormal weight loss 03/03/2016 Age-related osteoporosis without current pathological fracture (CMS/HCC) 06/06/2023 Ruptured ear drum, left 06/06/2023 Leg pain, bilateral 06/06/2023 Left wrist pain 06/06/2023 Obesity (BMI 30-39.9) 06/06/2023 Claudication of both lower extremities ([facility]) 06/08/2023 PAD (peripheral artery disease) ([facility]) 06/08/2023 Resolved Ambulatory Problems Diagnosis Date Noted No Resolved Ambulatory Problems Past Medical History: Diagnosis Date Hypertension ([facility]) Past Surgical History: Procedure Laterality Date APPENDECTOMY BI MAMMO GUIDED LOCALIZATION BREAST LEFT Left 03/28/2017 BI MAMMO GUIDED LOCALIZATION BREAST LEFT 03/28/2017 BREAST BIOPSY Left BREAST LUMPECTOMY Left 07/2015 BREAST SURGERY CHOLECYSTECTOMY COLONOSCOPY 2008 EYE SURGERY FRACTURE SURGERY Left leg HYSTERECTOMY Allergies Allergen Reactions Vancomycin Other States had burning sensation t/o entire body. (Infectious disease) States medication was given too fast. Iosrnoe-Hspawq-Xqltl Pertussis Rash Current Outpatient Medications on File Prior to Visit Medication Sig Dispense Refill alendronate (Fosamax) 70 MG tablet Take 1 tablet (70 mg) by mouth every 7 (seven) days. Take in the morning with a full glass of water, on an empty stomach, and do not take anything else by mouth or lie down for the next 30 min. 12 tablet 1 cholecalciferol (Vitamin D3) 200 Unit tablet split tablet Take 2,000 Units by mouth in the morning. Fostamatinib Disodium 100 MG tablet Take 100 mg by mouth in the morning and 100 mg in the evening. hydroCHLOROthiazide (HYDRODiuril) 25 MG tablet Take 25 mg by mouth in the morning. losartan (Cozaar) 25 MG tablet Take 50 mg by mouth in the morning and 50 mg before bedtime. pilocarpine (Salagen) 5 MG tablet Take 1 tablet by mouth in the morning and 1 tablet in the evening and 1 tablet before bedtime. spironolactone (Aldactone) 25 MG tablet Take 25 mg by mouth in the morning. No current facility-administered medications on file prior to visit. Objective Last Recorded Vitals Vitals: 08/23/23 1010 BP: 133/68 ENT Physical Exam Constitutional Appearance: patient appears well-developed, well-nourished and well-groomed, Head and Face Appearance: head appears normal and face appears atraumatic; Ear Ear Canals: right ear canal normal; left ear canal normal; Tympanic Membranes: right tympanic membrane normal; Ear comments: LT - 50% inf TM perf Nose External Nose: nares patent bilaterally; external nose normal; Internal Nose: septum normal; Oral Cavity/Oropharynx Tongue: normal; Oral mucosa: normal; Hard palate: normal; Soft palate: normal; Tonsils: normal; Neck Neck: neck normal; neck palpation normal; Thyroid: thyroid normal; Respiratory Inspection: breathing unlabored; normal breathing rate; Auscultation: breath sounds are clear; Cardiovascular Inspection: extremities are warm and well perfused; no peripheral edema present; Auscultation: regular rate and rhythm; Assessment/Plan Diagnoses and all orders for this visit: 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 I will refer pt to Dr Wright at to be evaluated for revision surgery documented in this encounter [facility] 08-16-2023 History of Presen t illness Narrative History: Pt was referred to ENT because of left TM perforation and left hearing loss. Onset of perforation was a few years ago Pt saw ENT in [place] that was going to repair the perforation but the office did not schedule her for surgery. Pt has left prosthesis (2016, Dr. Tyler) and was told it needs to be repaired. Dr. Gonzalez's office never scheduled surgery. Pure Tone Audiometry Right Ear: Mild sensorineural hearing loss from 250 Hz - 500 Hz. 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 Severe mixed hearing loss above 3K Hz Speech Audiometry Right SRT = 35 dB and word discrimination score at 60 dBHL = 100% Left SRT = 60 dB and word discrimination score at 90 dBHL (masked) = 100% Tympanometry Right Ear: Type A tympanogram Left Ear: No seal documented in this encounter [facility] 07-17-2023 Note HNO ID: [id number] Author: RINKU RAMSEY MD Service: ? Author Type: Physician Type: Progress Notes Filed: 07/17/2023 20:30 Note Text: NAME: Andrei Leo CLINIC NO.: [id number] DATE OF SERVICE: July 17, 2023 (eduard) Some elements in this clinic note that are critical to medical decision making have been carefully reviewed and included from a prior clinic note dated: June 05, 2023 (Mary). Additional Clinicians involved in Andrei Leo's care: Dr. Shay, Dr. Deluna DIAGNOSIS: Chronic ITP ASSESSMENT: 1. Thrombocytopenia (HCC) - (primary diagnosis) She has chronic ITP. She [...] respond to Tavalisse started 05/2021. 2. Pulmonary nodules: 12/31/2020 CT Chest stable. No new findings. 3. Lupus (HCC) - She is asymptomatic from Lupus of the [...] Follow up in 6 weeks with labs. HPI: Case History: 03/29/2023 - US renal bilateral: Normal-sized kidneys without hydronephrosis. Small bilateral renal cysts, one with calcifications along the wall on the left. 03/12/2023 - CT abdomen/pelvis: No calculi. No hydronephrosis or hydroureter. Reasonably well-defined renal hypodensities. Tiny hyperdensity peripherally in the right kidney may represent a very small cyst containing proteinaceous/hemorrhagic material. No GI obstruction. No focally thickened loop of bowel. No fluid collections in the abdomen/pelvis. Infrarenal 31 mm AAA. 11/20/2021 - Ultrasound retroperitoneal complete: No evidence of echogenic calculi or hydronephrosis. There are bilateral renal cysts. Measurements as described above. 05/14/2021-Current - Tavalisse 12/31/2020 - CT Chest: Multiple subcentimeter nodular opacities measuring up to 7 mm (30-40) stable since 12/19/2019. If clinically indicated, consider one-year follow-up. No interval change since 12/19/2019. 10/31/2019-11/21/2019 - Weekly Rituxan x 4 09/13/2019 - Bone marrow sternal aspirate: Bone marrow aspirate, clot section and peripheral blood (A-B): Non-diagnostic lymphoid aggregates, see comment. Unremarkable maturing trilineage hematopoiesis. 09/04/2019 - CT abd/Pelvis w/: No evidence of bowel [...] bilateral renal cysts. Subcentimeter right adrenal myelolipoma. 04/11/2019 - Plaquenil which she stopped 01/2019 - Prednisone 2018 - Rituxan X 4 Updated Visit, July 17, 2023: Andrei returns today for follow up. She reports that on she had an episode of hypotension while she was cooking and felt like she was going to lose consciousness. Her BP returned to normal after sitting down for a half hour or so, it is normal today. Her , daughter, and bother all came down with Covid around that time as well. Otherwise, she has been doing well. The back pain she'd been having has resolved. She has been having some weakness when moving around a lot in the backs of her knees. She is taking Ca and Vitamin D, in addition to Fosamax, for her osteoporosis. We reviewed her labs, which showed slight improvement in her anemia. Chemistries and other labs still in process. We discussed she does't have a need for B12 or folic acid replacement at this time, but we can monitor this. Updated Visit, June 05, 2023: Andrei returns for follow up. Remains on Tavalisse 100 mg BID. She reports having a mammogram and dexa scan at [facility] per her PCP. She states [...] to struggle with health issues. Labs remain (more content not included)... [facility] 06-28-2023 Evaluation note Encounter Date Diagnosis Assessment Notes Jun, HTN (hypertension) (ICD-10 - I10) She likely has essential hypertension. Her blood pressure has improved with addition of the spironolactone.. She appears to be euvolemic. Advised to limit the fluid intake to 50 ounces a day and takes low-salt diet. Her renal function has declined due to the hemodynamic changes in setting of better blood pressure control. She has no evidence of hematuria and only has trace proteinuria on UA. Her renal US showed b/l renal cyst and complex renal cyst in left kidney. I discussed with her the importance of good blood pressure control. Continue Spironolactone 25 mg daily Jun, Lupus (ICD-10 - M32.9) She denies any symptoms. I have advised her to follow-up with rheumatology if she develop symptoms. Jun, Chronic ITP (idiopathic thrombocytopenia ) (ICD-10 - D69.3) Continue follow-up with hematology. Jun, ADALBERTO (obstructive sleep apnea) (ICD-10 - G47.33) She has a sleep apnea. I have advised her to follow with sleep specialist. Jun, Complex renal cyst (ICD-10 - N28.1) She has b/l renal cyst with one complicated cyst in left kidney. Her CT scan results reviewed from the [facility] which also showed bilateral renal cysts. Will repeat renal US in September 2022 Jun, Anemia (ICD-10 - D64.9) She follows with Hematology Jun, Hyperuricemia (ICD-10 - E79.0) She has hyperuricemia due to CKD. She denies any recent gout flare. Will continue to monitor without medication. Jun, Vitamin D deficiency (ICD-10 - E55.9) She has a vitamin D deficiency but her calcium, phosphorus and PTH are within the goal. I have prescribed oral vitamin D 50,000 unit once weekly. [facility] Other 11-27-2023 NoteHNO ID: [id number] Author: Ana Hernandez PA-C Service: ? Author Type: Physician Assurance Manager Type: Progress Notes Filed: 06/05/2023 11:06 AM Note Text: NAME: LeoAndrei gibson CLINIC NO.: [id number] DATE OF SERVICE: June 05, 2023 (Mary) [...] having a mammogram and dexa scan at [facility] per her PCP. 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 Overall, she is doing well [...] more easily with blo (more content not included)...[facility]11-27-2023 History of Present illness Narrative* Ana Hernandez PA-C - 06/05/2023 8:47 AM EST Images from the original note were not included. NAME: Andrei eLo CLINIC NO.: [id number] DATE OF SERVICE: June 05, 2023 (Mary) [...] having a mammogram and dexa scan at [facility] per her PCP. 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 Overall, she is doing well [...] as they are slightlyincreased. Got back from [place] and saw her sisters and had a [...] why she was going to see a line department supervisor for her blood pressure. Patient also has [...] which included preparing to see the patient, [id number] patient care, completing clinical documentation, obtaining and/or reviewing separately obtained history, performing a medically appropriate examination, counseling and educating the pat ient/family/caregiver, ordering medications, tests, or procedures, independently interpreting results (not separately reported), communicating results to the patient/family/caregiver, and care coordination (not separately reported). Ana Hernandez PA-C CC: Dr. Chadd Deluna [facility] Miscellaneous Notes* Telephone Encounter - Krista Harden RPh - 05/01/2023 2:44 PM EDT Please Fax RX to [facility] @ [phone] Kriss StallingsD, BCOP documented in this encounterToledo [facility]10-12-2023 NoteHNO ID: [id number] Author: Rinku Ramsey MD Service: ? Author Type: Physician Type: Progress Notes Filed: 04/23/2023 4:09 PM Note Text: NAME: Abe Andrei [facility] NO.: [id number] DATE OF SERVICE: April 20, 2023 (Joon) Some elements in this clinic note that are critical to medical decision making have been carefully reviewed and included from a prior clinic note dated: March 09, 2023 (Joon) Additional Clinicians involved in Andrei Leo's care: [...] 08/29/2022 and then 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 Overall, she is doing well [...] they are slightly increased. Got back from [place] and saw her sisters and had a nice trip with her of 54 yrs. Updated Visit, February 11, 2022: Andrei Leo returns for scheduled follow-up. She remains on Tavalisse 100 mg twice daily and is (more content not included)...[facility]10-12-2023 Instructions* Patient Instructions* Rinku Ramsey MD - 04/20/2023 10:47 AM EDT Continue Tavalisse 100 mg twice daily. Follow up in 6 weeks with labs. documented in [facility] encounterT[facility]10-12-2023 History of Present illness Narrative* Rinku Ramsey MD - 04/20/2023 10:30 AM EDT Images from the original note were not included. NAME: Andrei Leo [facility] NO.: [id number] DATE OF SERVICE: April 20, 2023 (fabiola) Some elements in this clinic note that are critical to medical decision making have been carefully reviewed and included from a prior clinic note dated: March 09, 2023 (Joon) Additional Clinicians involved in Andrei Leo's care: [...] 08/29/2022 and then 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 Overall, she is doing well [...] as they are slightlyincreased. Got back from [place] and saw her sisters and had a [...] why she was going to see a line department supervisor for her blood pressure. Patient also has [...] which included preparing to see the patient, [id number] patient care, completing clinical documentation, obtaining and/or reviewing separately obtained history, performing a medically appropriate examination, counseling and educating the pat ient/family/caregiver, ordering medications, tests, or procedures, independently interpreting results (not separately reported), communicating results to the patient/family/caregiver, and care coordination (not separately reported). Rinku Ramsey MD, CPE Hematology and Oncology Services Provided at: [place], [place] CC: Dr. Chadd Deluna documented in this encounterT[facility]10-11-2023 Miscellaneous Notes* Telephone Encounter - Joanne Alvarez - 04/19/2023 4:02 PM EDT Patient has an appt on 04/20. Would you like labs? documented in this encounterT[facility]09-05-2023 Evaluation note* Encounter Date Diagnosis Assessment Notes Treatment Notes Treatment Clinical Notes Mar, Complex renal cyst (ICD-10 - N28.1) [facility] 08-31-2023 NoteHNO ID: [id number] Author: Rinku Ramsey MD Service: ? Author Type: Physician Type: Progress Notes Filed: 03/13/2023 2:11 PM Note Text: NAME: Andrei Leo CLINIC NO.: [id number] DATE OF SERVICE: March 09, 2023 (Joon) Some elements in this clinic note that are critical to medical decision making have been carefully reviewed and included from a prior clinic note dated: January 26, 2023 (Joon) Additional Clinicians involved in Andrei Leo's care: [...] 2018 Rituxan X 4 HPI: Updated Visit, March [...] 08/29/2022 and then 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 Overall, she is doing well [...] they are slightly increased. Got back from [place] and saw her sisters and had a nice trip with her of 54 yrs. Updated Visit, February 11, 2022: Andrei Leo returns for scheduled follow-up. She remains on Tavalisse 100 mg twice daily and is tolerating it well. She denies any signs of bleeding or abnormal bruising. Also no signs of blood clots. She saw Dr. Gilson Troncoso today. She (more content not included)...[facility] 03-09-2023 Instructions* Patient Instructions* Rinku Ramsey MD - 03/09/2023 2:54 PM EDT Continue Tavalisse 100 mg twice daily. Follow up in 6 weeks with labs. documented in this encounterT[facility]08-31-2023 History of Present illness Narrative* Rinku Ramsey MD - 03/09/2023 2:50 PM EDT Images from the original note were not included. NAME: Andrei Leo CLINIC NO.: [id number] DATE OF SERVICE: March 09, 2023 (Joon) Some elements in this clinic note that are critical to medical decision making have been carefully reviewed and included from a prior clinic note dated: January 26, 2023 (Joon) Additional Clinicians involved in Andrei Leo's care: Dr. ShayDr. Deluna CC: Chronic ITP ASSESSMENT/PLAN: 1. Thrombocytopenia [...] 08/29/2022 and then 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 Overall, she is doing well [...] resolved. Updated Visit, May 12, 2022: Andrei Loe returns for follow-up. She remains on Tavalisse [...] as they are slightlyincreased. Got back from [place] and saw her sisters and had a [...] why she was going to see a line department supervisor for her blood pressure. Patient also has [...] which included preparing to see the patient, [id number] patient care, completing clinical documentation, performing a medically appropriate examination, counseling and educating the patient/family/caregiver, ordering medications, tests, or p rocedures, and independently interpreting results (not separately reported). Rinku Ramsey MD, CPE Hematology and Oncology Services Provided at: [place], [place] CC: Dr. Chadd Deluna documented in this encounterToledo [facility]07-20-2023 NoteHNO ID: [id number] Author: Rinku Ramsey MD Service: ? Author Type: Physician Type: Progress Notes Filed: 01/26/2023 3:16 PM Note Text: NAME: Andrei Leo CLINIC NO.: [id number] DATE OF SERVICE: January 26, 2023 (violetafabiola) Some elements in this clinic note that are critical to medical decision making have been carefully reviewed and included from a prior clinic note dated: December 15, 2022 (Joon) Additional Clinicians involved in Andrei Leo's care: [...] 08/29/2022 and then 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 Overall, she is doing well [...] they are slightly increased. Got back from [place] and saw her sisters and had a [...] to follow-up with the (more content not included)...[facility]07-20-2023 Instructions * Patient Instructions* Rinku Ramsey MD - 01/26/2023 3:14 PM EDT Continue Tavalisse 100 mg twice daily. Follow up in 6 weeks with labs. documented in this encounterToledo [facility]07-20-2023 History of Present illness Narrative* Rinku Ramsey MD - 01/26/2023 3:10 PM EDT NAME: Andrei Leo CLINIC NO.: [id number] DATE OF SERVICE: January 26, 2023 (Joon) Some elements in this clinic note that are critical to medical decision making have been carefully reviewed and included from a prior clinic note dated: December 15, 2022 (Joon) Additional Clinicians involved in Andrei Leo's care: [...] 08/29/2022 and then 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 Overall, she is doing well [...] resolved. Updated Visit, May 12, 2022: Andrei eLo returns for follow-up. She remains on Tavalisse [...] as they are slightlyincreased. Got back from [place] and saw her sisters and had a [...] why she was going to see a line department supervisor for her blood pressure. Patient also has [...] which included preparing to see the patient, [id number] patient care, completing clinical documentation, performing a medically appropriate examination, counseling and educating the patient/family/caregiver, ordering medications, tests, or p rocedures, and independently interpreting results (not separately reported). Rinku Ramsey MD, CPE Hematology and Oncology Services Provided at: [place], [place] CC: Dr. Chadd Deluna documented in this encounterToledo Hospital06-08-2023 NoteHNO ID: [id number] Author: Rinku Ramsey MD Service: ? Author Type: Physician Type: Progress Notes Filed: 12/15/2022 2:41 PM Note Text: NAME: Andrei Leo CLINIC NO.: [id number] DATE OF SERVICE: December 15, 2022 (Joon) Some elements in this clinic note that are critical to medical decision making have been carefully reviewed and included from a prior clinic note dated: October 27, 2022 (Joon) Additional Clinicians involved in Andrei Leo's care: [...] 08/29/2022 and then 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 Overall, she is doing well [...] they are slightly increased. Got back from [place] and saw her sisters and had a [...] Tavalisse and is meek (more content not included)...[facility]06-08-2023 Instructions* Patient Instructions* Rinku Ramsey MD - 12/15/2022 2:39 PM EDT Continue Tavalisse 100 mg twice daily. Follow up in 6 weeks with labs. documented in this encounterToledo [facility]06-08-2023 History of Present illness Narrative* Rinku Ramsey MD - 12/15/2022 2:35 PM EDT Images from the original note were not included. NAME: Andrei Leo [facility] NO.: [id number] DATE OF SERVICE: December 15, 2022 (Joon) Some elements in this clinic note that are critical to medical decision making have been carefully reviewed and included from a prior clinic note dated: October 27, 2022 (Joon) Additional Clinicians involved in Andrei Leo's care: [...] 08/29/2022 and then 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 Overall, she is doing well [...] as they are slightlyincreased. Got back from [place] and saw her sisters and had a [...] why she was going to see a line department supervisor for her blood pressure. Patient also has [...] which included preparing to see the patient, rdxf-oi-[id number] patient care, completing clinical documentation, performing a medically appropriate examination, counseling and educating the patient/family/caregiver, ordering medications, tests, or p rocedures, and independently interpreting results (not separately reported). Rinku Ramsey MD, [facility] Hematology and Oncology Services Provided at: [place], [place] CC: Dr. Chadd Deluna documented in this encounterToledo Hospital04-20-2023 NoteHNO ID: [id number] Author: Rinku Ramsey MD Service: ? Author Type: Physician Type: Progress Notes Filed: 10/27/2022 3:38 PM Note Text: NAME: AbeAndrei NO.: [id number] DATE OF SERVICE: October 27, 2022 (Joon) Some elements in this clinic note that are critical to medical decision making have been carefully reviewed and included from a prior clinic note dated: September 15, 2022 (Joon) Additional Clinicians involved in Paulalicia Leo's care: DrDr. Mikie Carbajal CC: Chronic ITP ASSESSMENT/PLAN: 1. Thrombocytopenia (HCC) [...] 08/29/2022 and then 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 Overall, she is doing well [...] they are slightly increased. Got back from [place] and saw her sisters and had a [...] bleeding or abnormal bruising. (more content not included)...[facility]04-20-2023 Instructions* Patient Instructions* Rinku Ramsey MD - 10/27/2022 3:37 PM EDT Continue Tavalisse 100 mg twice daily. (Actually takes 2 pills at the same time) Follow up in 6 weeks with labs. documented in this encounterToledo Hospital04-20-2023 History of Present illness Narrative* Rinku Ramsey MD - 10/27/2022 3:34 PM EDT Images from the original note were not included. NAME: Andrei Leo [facility] NO.: [id number] DATE OF SERVICE: October 27, 2022 [facility] Some elements in this clinic note that are critical to medical decision making have been carefully reviewed and included from a prior clinic note dated: September 15, 2022 (Joon) Additional Clinicians involved in Andrei Leo's care: [...] 08/29/2022 and then 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 Overall, she is doing well [...] as they are slightlyincreased. Got back from [place] and saw her sisters and had a [...] why she was going to see a line department supervisor for her blood pressure. Patient also has [...] which included preparing to see the patient, [id number]-[id number] patient care, completing clinical documentation, performing a medically appropriate examination, counseling and educating the patient/family/caregiver, ordering medications, tests, or p rocedures, and independently interpreting results (not separately reported). Rinku Ramsey MD, CPE Hematology and Oncology Services Provided at: [place], [place] CC: Dr. Chadd Deluna documented in this encounterToledo Hospital03-17-2023 Miscellaneous Notes* Telephone Encounter - Joanne Alvarez - 09/23/2022 9:24 AM EDT Patient would like script for 90 days please. Joanne Alvarez documented in this encounterToledo Hospital03-10-2023 Miscellaneous Notes* Telephone Encounter - Rinku Ramsey MD - 09/16/2022 3:30 PM EST This really should go through her PCP documented in this encounterToledo Hospital03-09-2023 NoteHNO ID: [id number] Author: Rinku Ramsey MD Service: ? Author Type: Physician Type: Progress Notes Filed: 09/20/2022 3:43 PM Note Text: NAME: LeoAndrei CLINIC NO.: [id number] DATE OF SERVICE: September 15, 2022 (Joon) Some elements in this clinic note that are critical to medical decision making have been carefully reviewed and included from a prior clinic note dated: August 04, 2021 (Godwin) Additional Clinicians involved in Andrei Leo's care: [...] 08/29/2022 and then 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 Overall, she is doing well [...] they are slightly increased. Got back from [place] and saw her sisters and had a [...] bleeding or abnormal br (more content not included)...[facility]03-09-2023 Instructions* Patient Instructions* Rinku Ramsey MD - 09/15/2022 3:53 PM EST Continue Tavalisse 100 mg twice daily. (Actually takes 2 pills at the same time) Losartan was increased by nephrology. Taking Losartan 50 mg daily. Continue HCTZ. Follow up in 6 weeks with labs. [facility]03-[facility]23 History of Present illness Narrative* Rinku Ramsey MD - 09/15/2022 3:34 PM EST Images from the original note were not included. NAME: Andrei Leo [facility] NO.: [id number] DATE OF SERVICE: September 15, 2022 (Joon) Some elements in this clinic note that are critical to medical decision making have been carefully reviewed and included from a prior clinic note dated: August 04, 2021 (Godwin) Additional Clinicians involved in Andrei Leo's care: [...] 08/29/2022 and then 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 Overall, she is doing well [...] as they are slightlyincreased. Got back from [place] and saw her sisters and had a [...] why she was going to see a line department supervisor for her blood pressure. Patient also has [...] which included preparing to see the patient, [id number] patient care, completing clinical documentation, performing a medically appropriate examination, counseling and educating the patient/family/caregiver, ordering medications, tests, or p rocedures, and independently interpreting results (not separately reported). Rinku Ramsey MD, CPE Hematology and Oncology Services Provided at: [place], [place] CC: Dr. Chadd Deluna documented in this encounterTol[facility]03-01-2023 Evaluation note* Encounter Date Diagnosis Assessment Notes [...] (ICD-10 - D64.9) She follows with Hematology [facility] [employer] Other [id number] Miscellaneous Notes* Telephone Encounter - Jayden Connelly APRN.STEPH - 08/05/2022 2:23 PM EST The following [...] Refusal: A Refill not appropriate Jayden Connelly APRN.STEPH documented in this encounterToledo Hospital01-26-2023 Miscellaneous Notes* Telephone Encounter - Karen Muñoz - 08/04/2022 2:40 PM EST Patient wanted to hold off on being referred to Dermatology at this time. She is going to check with her insurance company for in network providers and let our office know on where she would like to be referred to. Karen Muñoz documented in this encounterToledo Hospital01-26-2023 History of Present illness Narrative* Jayden Connelly APRN.STEPH - 08/04/2022 2:04 PM EST Images from the original note were not included. NAME: Andrei Leo [facility] NO.: [id number] DATE OF SERVICE: August 04, 2021 (Godwin) Some elements in this clinic note that [...] 08/29/2022 and then 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 Overall, she is doing well [...] as they are slightlyincreased. Got back from [place] and saw her sisters and had a [...] why she was going to see a line department supervisor for her blood pressure. Patient also has [...] reviewed. No pertinent family history. Jayden Connelly APRN.[facility] Hematology and Oncology Services Provided at: [place], [place] CC: Dr. Chadd Deluna I spent a total of 30 minutes on the date of the service which included preparing to see the patient, [id number] patient care, completing clinical documentation, obtaining and/or reviewing separately obtained history, performing a medically appropriate examination, counseling and educating the pat ient/family/caregiver, ordering medications, tests, or procedures, independently interpreting results (not separately reported), and communicating results to the patient/family/caregiver. documented in this encounterToledo Hospital01-16-2023 Miscellaneous Notes* Telephone Encounter - Jayden Connelly APRN.CNP - 07/25/2022 10:33 AM EST The following approved medication requests have been transmitted electronically. Requested Prescriptions Signed Prescriptions Disp Refills benzonatate (TESSALON PERLE) 100 mg capsule 100 capsule 0 Sig: TAKE 1 CAPSULE BY MOUTH EVERY 6 HOURS NEEDED FOR COUGH. Authorizing Provider: JAYDEN CONNELLY APRN.CNP documented in this encounterToledo Hospital01-04-2023 Miscellaneous Notes* Telephone Encounter - Jayden Connelly APRN.CNP - 07/13/2022 4:01 PM EST The following approved medication requests have been transmitted electronically. Requested Prescriptions Signed Prescriptions Disp Refills losartan (COZAAR) 25 mg tablet 60 tablet 1 Sig: TAKE 2 TABLETS BY MOUTH EVERY DAY Authorizing Provider: JAYDEN CONNELLY APRN.CNP documented in this encounterToledo Hospital12-15-2022 Instructions* Patient Instructions* Rinku Ramsey MD - 06/23/2022 2:44 PM EST Continue Tavalisse 100 mg twice daily. Losartan was increased by nephrology. Taking Losartan 50 mg daily. Continue HCTZ. Right read lesion - trial of ice. Follow up in 6 weeks with labs. See Jayden please. - consider biopsy of right read. documented in this encounterToledo Hospital12-15-2022 History of Present illness Narrative* Rinku Ramsey MD - 06/23/2022 2:30 PM EST Images from the original note were not included. NAME: Andrei Leo [facility] NO.: [id number] DATE OF SERVICE: June 23, 2022 (Joon) Some elements in this clinic note that are critical to medical decision making have been carefully reviewed and included from a prior clinic note dated: May 12, 2022 (Godwin) Additional Clinicians involved in Andrei Leo's care: [...] biopsy of right read. Treatment to Date: 5. 05/14/2021 - Current: [...] as they are slightlyincreased. Got back from [place] and saw her sisters and had a [...] well. Updated Visit, December 17, 2021: Andrei Loe returns for scheduled follow-up. She remains on [...] why she was going to see a line department supervisor for her blood pressure. Patient also has [...] which included preparing to see the patient, [id number]-[id number] patient care, completing clinical documentation, performing a medically appropriate examination, counseling and educating the patient/family/caregiver, ordering medications, tests, or p rocedures, and independently interpreting results (not separately reported). Rinku Ramsey MD, CPE Hematology and Oncology Services Provided at: [place], [place] CC: Dr. Chadd Deluna documented in this encounterToledo Hospital11-11-2022 Miscellaneous Notes* Telephone Encounter - Jayden Connelly APRN.CNP - 05/20/2022 3:34 PM EST The following approved medication requests have been transmitted electronically. Requested Prescriptions Signed Prescriptions Disp Refills losartan (COZAAR) 25 mg tablet 60 tablet 1 Sig: TAKE 2 TABLETS BY MOUTH EVERY DAY Authorizing Provider: JAYDEN CONNELLY APRN.CNP documented in this encounterToledo Hospital11-03-2022 History of Present illness Narrative* Jayden Connelly APRN.CNP - 05/12/2022 2:15 PM EDT NAME: Andrei Leo CLINIC NO.: [id number] DATE OF SERVICE: May 12, 2022 (Godwin) Some elements in this clinic note that [...] as they are slightlyincreased. Got back from [place] and saw her sisters and had a [...] why she was going to see a line department supervisor for her blood pressure. Patient also has [...] family history on file. Jayden Connelly APRN.STEPH Hematology and Oncology Services Provided at: [place], [place] CC: Dr. Chadd Deluna I spent a total of 30 minutes on the date of the service which included preparing to see the patient, kwos-[id number] patient care, completing clinical documentation, obtaining and/or reviewing separately obtained history, performing a medically appropriate examination, counseling and educating the pat ient/family/caregiver, ordering medications, tests, or procedures, independently interpreting results (not separately reported), and communicating results to the patient/family/caregiver. documented in this encounterToledo Hospital09-22-2022 Instructions* Patient Instructions* Rinku Ramsey MD - 03/31/2022 2:50 PM EDT 1. Continue Tavalisse. 2. Losartan was increased by nephrology. Taking Losartan 50 mg daily. 3. Contnue HCTZ. 4. Follow up in 6 weeks with labs. documented in this encounterToledo Hospital09-22-2022 History of Present illness Narrative* Rinku Ramsey MD - 03/31/2022 2:43 PM EDT Images from the original note were not included. NAME: Andrei Leo CLINIC NO.: [id number] DATE OF SERVICE: March 31, 2022 Some elements in this clinic note that are critical to medical decision making have been carefully reviewed and included from a prior clinic note dated: February 11, 2022 (Godwin) Additional Clinicians involved in Andrei Leo's care: [...] as they are slightlyincreased. Got back from [place] and saw her sisters and had a [...] why she was going to see a line department supervisor for her blood pressure. Patient also has [...] which included preparing to see the patient, toxr-nr-ulrn patient care, completing clinical documentation, performing a medically appropriate examination, ordering medications, tests, or procedures, and independently interpreting results (not separately reported). Rinku Ramsey MD, CPE Hematology and Oncology Services Provided at: [place], [place] CC: Chadd Deluna documented in this encounterToledo Hospital08-29-2022 Miscellaneous Notes* Telephone Encounter - Jayden Connelly APRN.CNP - 03/07/2022 12:22 PM EDT The following approved medication requests have been transmitted electronically. Requested Prescriptions Signed Prescriptions Disp Refills pilocarpine (SALAGEN) 5 mg tablet 90 tablet 0 Sig: TAKE 1 TABLET BY MOUTH THREE TIMES A DAY Authorizing Provider: JAYDEN CONNELLY APRN.CNP documented [facility] this [facility]08-29-[facility] Miscellaneous Notes* Telephone Encounter - Jayden Connelly APRN.CNP - 03/07/2022 11:21 AM EDT The following approved medication requests have been transmitted electronically. Requested Prescriptions Signed Prescriptions Disp Refills losartan (COZAAR) 25 mg tablet 60 tablet 1 Sig: TAKE 2 TABLETS BY MOUTH EVERY DAY Authorizing Provider: JAYDEN CONNELLY APRN.CNP documented in this encounterToledo Hospital08-05-2022 History of Present illness Narrative* Jayden Connelly APRN.CNP - 02/11/2022 1:21 PM EDT Images from the original note were not included. NAME: Andrei Leo CLINIC NO.: [id number] DATE OF SERVICE: February 11, 2022 Some [...] Tessalon Perles and pilocarpine. Treatment to Date: . 05/14/2021 - Current: [...] why she was going to see a line department supervisor for her blood pressure. Patient also has [...] No family history on file. Jayden Connelly APRN.[employer] Services Provided at: [facility] [place], [place] CC: Chadd Deluna documented in this encounterToledo Hospital07-05-2022 Miscellaneous Notes* Telephone Encounter - Jayden Connelly APRN.CNP - 01/11/2022 4:13 PM EDT The following approved medication requests have been transmitted electronically. Signed Prescriptions Disp Refills losartan (COZAAR) 25 mg tablet 60 tablet 1 Sig: TAKE 2 TABLETS BY MOUTH EVERY DAY JOVON: No Authorizing Provider: JAYDEN CONNELLY APRN.CNP documented in this encounterToledo Hospital06-10-2022 History of Present illness Narrative* Jayden Connelly APRN.CNP - 12/17/2021 3:13 PM EDT Images from the original note were not included. NAME: Andrei Leo [facility] NO.: [id number] DATE OF SERVICE: December 17, 2021 Some [...] why she was going to see a line department supervisor for her blood pressure. Patient also has [...] No family history on file. Jayden Connelly APRN.[employer] Services Provided at: [place], [place] CC: Chadd Shay Atif Deluna Almost had a fall MRI kidney- [facility] documented in this encounterToledo Hospital05-04-2022 Evaluation note* Encounter Date Diagnosis Assessment Notes [...] advised her to follow with sleep specialist. [employer] Other 04-21-2022 History of Present illness Narrative* Rinku Ramsey MD - 10/28/2021 11:41 AM EDT Images from the original note were not included. NAME: Andrei Leo [facility] NO.: [id number] DATE OF SERVICE: October 28, 2021 Some [...] why she was going to see a line department supervisor for her blood pressure. Patient also has [...] which included preparing to see the patient, [id number] patient care, completing clinical documentation, performing a medically appropriate examination, ordering medications, tests, or procedures and care coordination (not separately reporte d). Rinku Ramsey MD, CPE Services Provided at: [facility], [place], [place] & [place], [place] CC: Chadd Shay Atif Deluna documented in this encounterToledo Hospital04-18-2022 History of Present illness Narrative* Mary Ellen [...] Care Gap or Scheduling/Wellness visits Payer: Payor: [facility] MEDIC[facility] / Plan: [employer] AARP MEDICARE HMO [...] 25, 2021 8:13 AM documented in this encounterToledo Hospital04-12-2022 Miscellaneous Notes* Telephone Encounter - Jayden Connelly [...] Provider: JAYDEN CONNELLY APRN.CNP documented in this encounterToledo Hospital11-03-2021 Miscellaneous Notes* Telephone Encounter - Krista Harden [...] call with any further questions. Gerard Harden [facility] documented [facility] this encounterTri[facility]* Diagnosis Essential hypertension Unspecified essential hypertension Chronic ITP (idiopathic thrombocytopenia) (HCC) Immune thrombocytopenic purpura Obstructive sleep apnea syndrome Obstructive sleep apnea (adult) (pediatric) Hypertension, unspecified type documented in this encounter [facility] note* Diagnosis Chronic ITP (idiopathic thrombocytopenia) (HCC)- Primary Immune thrombocytopenic purpura Essential hypertension Unspecified essential hypertension Obstructive sleep apnea syndrome Obstructive sleep apnea (adult) (pediatric) Lung nodules Other nonspecific abnormal finding of lung field Systemic lupus erythematosus, unspecified SLE type, unspecified organ involvement status (HCC) documented in this encounter [facility] note* Diagnosis Chronic ITP (idiopathic thrombocytopenia) (HCC)- Primary Immune thrombocytopenic purpura Hypertension, unspecified type Essential hypertension Unspecified essential hypertension Obstructive sleep apnea syndrome Obstructive sleep apnea (adult) (pediatric) Lung nodules Other nonspecific abnormal finding of lung field Systemic lupus erythematosus, unspecified SLE type, unspecified organ involvement status (HCC) [facility]* Diagnosis Hypertension, unspecified type [facility]* Diagnosis Essential hypertension Unspecified essential hypertension Chronic ITP (idiopathic thrombocytopenia) (HCC) Immune thrombocytopenic purpura Obstructive sleep apnea syndrome Obstructive sleep apnea (adult) (pediatric) Hypertension, unspecified type [facility] Diagnosis Hypertension, unspecified type documented in this encounter [facility] note* Diagnosis Chronic ITP (idiopathic thrombocytopenia) (HCC)- Primary Immune thrombocytopenic purpura Essential hypertension Unspecified essential hypertension Obstructive sleep apnea syndrome Obstructive sleep apnea (adult) (pediatric) Systemic lupus erythematosus, unspecified SLE type, unspecified organ involvement status (HCC) [facility]* Diagnosis Hypertension, unspecified type documented in this encounter [facility] note* Diagnosis Chronic ITP (idiopathic thrombocytopenia) (HCC)- Primary Immune thrombocytopenic purpura Obstructive sleep apnea syndrome Obstructive sleep apnea (adult) (pediatric) [facility]* Diagnosis Chronic ITP (idiopathic thrombocytopenia) (HCC)- Primary Immune thrombocytopenic purpura Obstructive sleep apnea syndrome Obstructive sleep apnea (adult) (pediatric) Essential hypertension Unspecified essential hypertension documented in this encounter [facility] note* Diagnosis Hypertension, unspecified type documented in this encounter [facility] note* Diagnosis Chronic ITP (idiopathic thrombocytopenia) (HCC)- Primary Immune thrombocytopenic purpura Hypertension, unspecified type Obstructive sleep apnea syndrome Obstructive sleep apnea (adult) (pediatric) Systemic lupus erythematosus, unspecified SLE type, unspecified organ involvement status (HCC) documented in this encounter [facility] note* Diagnosis Chronic ITP (idiopathic thrombocytopenia) (HCC)- Primary Immune thrombocytopenic purpura Obstructive sleep apnea syndrome Obstructive sleep apnea (adult) (pediatric) Hypertension, unspecified type Systemic lupus erythematosus, unspecified SLE type, unspecified organ involvement status (HCC) Malaise and fatigue Other malaise and fatigue Skin lesion of right lower extremity documented in this encounter [facility] note* Diagnosis Hypertension, unspecified type documented in this encounter [facility] noteNo assessment information availableSelect [facility] Work Phone: Evaluation note* Diagnosis Chronic ITP (idiopathic thrombocytopenia) (HCC)- Primary Immune thrombocytopenic purpura Obstructive sleep apnea syndrome Obstructive sleep apnea (adult) (pediatric) documented in this encounter [facility] note* Diagnosis Hypertension, unspecified type documented in this encounter [facility] note* Diagnosis Chronic ITP (idiopathic thrombocytopenia) (HCC)- Primary Immune thrombocytopenic purpura documented in this encounter [facility] note* Diagnosis Chronic ITP (idiopathic thrombocytopenia) (HCC)- Primary Immune thrombocytopenic purpura Hypertension, unspecified type Obstructive sleep apnea syndrome Obstructive sleep apnea (adult) (pediatric) [facility]* Diagnosis Chronic ITP (idiopathic thrombocytopenia) (HCC)- Primary Immune thrombocytopenic purpura Essential hypertension Unspecified essential hypertension Obstructive sleep apnea syndrome Obstructive sleep apnea (adult) (pediatric) Systemic lupus erythematosus, unspecified SLE type, unspecified organ involvement status ([facility]) documented in this encounter [facility] noteNo InformationNort [employer] Other Evaluation note* Diagnosis Chronic ITP (idiopathic thrombocytopenia) (HCC)- Primary Immune thrombocytopenic purpura documented in this encounter [facility] note* Diagnosis Chronic ITP (idiopathic thrombocytopenia) (HCC)- Primary Immune thrombocytopenic purpura Essential hypertension Unspecified essential hypertension documented in this encounter [facility] note* Diagnosis Chronic ITP (idiopathic thrombocytopenia) (HCC)- Primary Immune thrombocytopenic purpura Essential hypertension Unspecified essential hypertension Hypertension, unspecified type documented in this encounter [facility] note* Diagnosis 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, left [facility] Diagnosis 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 [facility]* Diagnosis Chronic ITP (idiopathic thrombocytopenia) (HCC)- Primary Immune thrombocytopenic purpura Essential hypertension Unspecified essential hypertension Obstructive sleep apnea syndrome Obstructive sleep apnea (adult) (pediatric) Systemic lupus erythematosus, unspecified SLE type, unspecified organ involvement status ([facility]) Malaise and fatigue Other malaise and fatigue documented in this encounter [facility] note* Diagnosis Hypertension, unspecified type documented in this encounter [facility] general Narrative - Reported* Type Description Date Medical History PULMONARY NODULES Medical History LUPUS Medical History THROMBOCYTOPENIA Medical History HYPERTESNION Surgical History APPENDECTOMY Surgical History BACK SURGERY Surgical History CYST REMOVAL FROM LEFT BREAST Surgical History GALL BLADDER REMOVED Surgical History PARTIAL HYSTERECTOMY Surgical History OVARY REMOVAL Surgical History LEFT LEG FRACTURE WITH PIN AND PLATE PLACEMENT Hospitalization History SEE ABOVE [employer] Other History general Narrative - Reported* Type Description Date Medical History PULMONARY NODULES Medical History LUPUS Medical History THROMBOCYTOPENIA Medical History HYPERTESNION Medical History OSTEOPEROSIS Surgical History APPENDECTOMY Surgical History BACK SURGERY Surgical History CYST REMOVAL FROM LEFT BREAST Surgical History GALL BLADDER REMOVED Surgical History PARTIAL HYSTERECTOMY Surgical History OVARY REMOVAL Surgical History LEFT LEG FRACTURE WITH PIN AND PLATE PLACEMENT Hospitalization History SEE ABOVE [employer] Other Summary Purpose Family History No Family History Records FoundNo Family History Records FoundNo Family History Records FoundNo Family History Records Found Advance Directives Advance Directive Response Recorded Date/ Time Advance Directives No July 22, 2022 10:59am Reason for Referral Specialty Diagnoses / Procedures Referred By Contac t Referred To Contact Dermatology Diagnoses Skin lesion of right lower extremity Procedures CONSULT TO DERMATOLOGY Jayden Connelly, MIRIAM.[address] [place] [address] Referral ID Status Reason Start Date Expiration Date Visits Requested Visits Authorized [id number] Ref Not Required PCP Requested Referral 08/04/2022 08/04/2023 1 1 Chief Complaint and Reason for Visit Chief Complaint HTN Lupus Chronic IT P I10 M32.9 D693 G47.33 n28.1 Additional Source Comments INFORMATION SOURCE (unrecogn ized section and content) DATE CREATED AUTHOR 01/02/2018 [facility] DATE CREATED AUTHOR AUTHOR'S ORGANIZ ATION 08/18/2023 [facility] DATE CREATED AUTHOR AUTHOR'S ORGANIZ ATION 08/25/2023 [facility] DATE CREATED AUTHOR AUTHOR'S ORGANIZ ATION 08/29/2023 [facility] Source Comments (unrecognize d section and content) In the event this informatio n is protected by the Federal Confidentiality of Alcohol and Drug Abuse Patient Records regulations: The Federal rules restrict any use of the information to criminally investigate or prosecute any alcohol or drug abuse patient.[facility] HospitalIn the event this information is protected by the Federal Confidentiality of Alcohol and Drug Abuse Patient Records regulations: The Federal rules restrict any use of the information to criminally investigate or prosecute any alcohol or drug abuse patient.[facility] HospitalIn the event this information is protected by the Federal Confidentiality of Alcohol and Drug Abuse Patient Records regulations: The Federal rules restrict any use of the information to criminally investigate or prosecute any alcohol or drug abuse patient.[facility] HospitalIn the event this information is protected by the Federal Confidentiality of Alcohol and Drug Abuse Patient Records regulations: The Federal rules restrict any use of the information to criminally investigate or prosecute any alcohol or drug abuse patient.[facility] HospitalIn the event this information is protected by the Federal Confidentiality of Alcohol and Drug Abuse Patient Records regulations: The Federal rules restrict any use of the information to criminally investigate or prosecute any alcohol or drug abuse patient.[facility] HospitalIn the event this information is protected by the Federal Confidentiality of Alcohol and Drug Abuse Patient Records regulations: The Federal rules restrict any use of the information to criminally investigate or prosecute any alcohol or drug abuse patient.[facility] HospitalIn the event this information is protected by the Federal Confidentiality of Alcohol and Drug Abuse Patient Records regulations: The Federal rules restrict any use of the information to criminally investigate or prosecute any alcohol or drug abuse patient.[facility] HospitalIn the event this information is protected by the Federal Confidentiality of Alcohol and Drug Abuse Patient Records regulations: The Federal rules restrict any use of the information to criminally investigate or prosecute any alcohol or drug abuse patient.[facility] HospitalIn the event this information is protected by the Federal Confidentiality of Alcohol and Drug Abuse Patient Records regulations: The Federal rules restrict any use of the information to criminally investigate or prosecute any alcohol or drug abuse patient.[facility] HospitalIn the event this information is protected by the Federal Confidentiality of Alcohol and Drug Abuse Patient Records regulations: The Federal rules restrict any use of the information to criminally investigate or prosecute any alcohol or drug abuse patient.[facility] HospitalIn the event this information is protected by the Federal Confidentiality of Alcohol and Drug Abuse Patient Records regulations: The Federal rules restrict any use of the information to criminally investigate or prosecute any alcohol or drug abuse patient.[facility] HospitalIn the event this information is protected by the Federal Confidentiality of Alcohol and Drug Abuse Patient Records regulations: The Federal rules restrict any use of the information to criminally investigate or prosecute any alcohol or drug abuse patient.[facility] HospitalIn the event this information is protected by the Federal Confidentiality of Alcohol and Drug Abuse Patient Records regulations: The Federal rules restrict any use of the information to criminally investigate or prosecute any alcohol or drug abuse patient.[facility] HospitalIn the event this information is protected by the Federal Confidentiality of Alcohol and Drug Abuse Patient Records regulations: The Federal rules restrict any use of the information to criminally investigate or prosecute any alcohol or drug abuse patient.[facility] HospitalIn the event this information is protected by the Federal Confidentiality of Alcohol and Drug Abuse Patient Records regulations: The Federal rules restrict any use of the information to criminally investigate or prosecute any alcohol or drug abuse patient.[facility] HospitalIn the event this information is protected by the Federal Confidentiality of Alcohol and Drug Abuse Patient Records regulations: The Federal rules restrict any use of the information to criminally investigate or prosecute any alcohol or drug abuse patient.[facility] HospitalIn the event this information is protected by the Federal Confidentiality of Alcohol and Drug Abuse Patient Records regulations: The Federal rules restrict any use of the information to criminally investigate or prosecute any alcohol or drug abuse patient.[facility] HospitalIn the event this information is protected by the Federal Confidentiality of Alcohol and Drug Abuse Patient Records regulations: The Federal rules restrict any use of the information to criminally investigate or prosecute any alcohol or drug abuse patient.[facility] HospitalIn the event this information is protected by the Federal Confidentiality of Alcohol and Drug Abuse Patient Records regulations: The Federal rules restrict any use of the information to criminally investigate or prosecute any alcohol or drug abuse patient.[facility] HospitalIn the event this information is protected by the Federal Confidentiality of Alcohol and Drug Abuse Patient Records regulations: The Federal rules restrict any use of the information to criminally investigate or prosecute any alcohol or drug abuse patient.[facility] HospitalIn the event this information is protected by the Federal Confidentiality of Alcohol and Drug Abuse Patient Records regulations: The Federal rules restrict any use of the information to criminally investigate or prosecute any alcohol or drug abuse patient.[facility] HospitalIn the event this information is protected by the Federal Confidentiality of Alcohol and Drug Abuse Patient Records regulations: The Federal rules restrict any use of the information to criminally investigate or prosecute any alcohol or drug abuse patient.[facility] HospitalIn the event this information is protected by the Federal Confidentiality of Alcohol and Drug Abuse Patient Records regulations: The Federal rules restrict any use of the information to criminally investigate or prosecute any alcohol or drug abuse patient.[facility] HospitalIn the event this information is protected by the Federal Confidentiality of Alcohol and Drug Abuse Patient Records regulations: The Federal rules restrict any use of the information to criminally investigate or prosecute any alcohol or drug abuse patient.[facility] HospitalIn the event this information is protected by the Federal Confidentiality of Alcohol and Drug Abuse Patient Records regulations: The Federal rules restrict any use of the information to criminally investigate or prosecute any alcohol or drug abuse patient.[facility] HospitalIn the event this information is protected by the Federal Confidentiality of Alcohol and Drug Abuse Patient Records regulations: The Federal rules restrict any use of the information to criminally investigate or prosecute any alcohol or drug abuse patient.[facility] HospitalIn the event this information is protected by the Federal Confidentiality of Alcohol and Drug Abuse Patient Records regulations: The Federal rules restrict any use of the information to criminally investigate or prosecute any alcohol or drug abuse patient.[facility] HospitalIn the event this information is protected by the Federal Confidentiality of Alcohol and Drug Abuse Patient Records regulations: The Federal rules restrict any use of the information to criminally investigate or prosecute any alcohol or drug abuse patient.[facility] HospitalIn the event this information is protected by the Federal Confidentiality of Alcohol and Drug Abuse Patient Records regulations: The Federal rules restrict any use of the information to criminally investigate or prosecute any alcohol or drug abuse patient.[facility] HospitalIn the event this information is protected by the Federal Confidentiality of Alcohol and Drug Abuse Patient Records regulations: The Federal rules restrict any use of the information to criminally investigate or prosecute any alcohol or drug abuse patient.[facility] HospitalIn the event this information is protected by the Federal Confidentiality of Alcohol and Drug Abuse Patient Records regulations: The Federal rules restrict any use of the information to criminally investigate or prosecute any alcohol or drug abuse patient.[facility] HospitalIn the event this information is protected by the Federal Confidentiality of Alcohol and Drug Abuse Patient Records regulations: The Federal rules restrict any use of the information to criminally investigate or prosecute any alcohol or drug abuse patient.[facility] HospitalIn the event this information is protected by the Federal Confidentiality of Alcohol and Drug Abuse Patient Records regulations: The Federal rules restrict any use of the information to criminally investigate or prosecute any alcohol or drug abuse patient.[facility] HospitalIn the event this information is protected by the Federal Confidentiality of Alcohol and Drug Abuse Patient Records regulations: The Federal rules restrict any use of the information to criminally investigate or prosecute any alcohol or drug abuse patient.[facility] HospitalIn the event this information is protected by the Federal Confidentiality of Alcohol and Drug Abuse Patient Records regulations: The Federal rules restrict any use of the information to criminally investigate or prosecute any alcohol or drug abuse patient.[facility] HospitalIn the event this information is protected by the Federal Confidentiality of Alcohol and Drug Abuse Patient Records regulations: The Federal rules restrict any use of the information to criminally investigate or prosecute any alcohol or drug abuse patient.[facility] HospitalIn the event this information is protected by the Federal Confidentiality of Alcohol and Drug Abuse Patient Records regulations: The Federal rules restrict any use of the information to criminally investigate or prosecute any alcohol or drug abuse patient.[facility] HospitalIn the event this information is protected by the Federal Confidentiality of Alcohol and Drug Abuse Patient Records regulations: The Federal rules restrict any use of the information to criminally investigate or prosecute any alcohol or drug abuse patient.[facility] HospitalIn the event this information is protected by the Federal Confidentiality of Alcohol and Drug Abuse Patient Records regulations: The Federal rules restrict any use of the information to criminally investigate or prosecute any alcohol or drug abuse patient.[facility] HospitalIn the event this information is protected by the Federal Confidentiality of Alcohol and Drug Abuse Patient Records regulations: The Federal rules restrict any use of the information to criminally investigate or prosecute any alcohol or drug abuse patient.[facility] Reason for Visit (unrecogniz ed section and [...] Reason Onset Date Comments Refill Request 05/01/2023 Reason Comments Ear Problem Left TM perf Reason Comments Chronic ITP (idiopathic thrombocytopenia ) (HCC) 1 month follow up Care Teams (unrecognized sec tion and content) Box Stapler Relationship Specialty Start Date End Date Paloma Saldaña [address] [place] [address] PCP - General Family Practice 05/26/21 05/31/21 Team Status: Inactive Member Role Status Dates Gilson Sarah MD Attending Provider Active NON STAFF Primary Care Provider Active Team Status: Active Member Role Status Dates NON STAFF Primary Care Provider Active Box Stapler Relationship Specialty Start Date End Date Shaikh Biswas MD [address] [place] [address] PCP - General Primary Care 09/15/22 Box Stapler Relationship Specialty Start Date End Date Shaikh Biswas MD [address] [place] [place] [address] PCP - General Primary Care 09/15/22 Box Stapler Relationship Specialty Start Date End Date Shaikh Biswas MD [address] [place] [place] [address] PCP - General Primary Care 09/15/22 Box Stapler Relationship Specialty Start Date End Date Shaikh Biswas MD [address] [place] [address] PCP - General Primary Care 09/15/22 Box Stapler Relationship Specialty Start Date End Date KwanjonnaernestinaStephanie miranda [address] [place] [address] PCP - General 04/20/23 Box Stapler Relationship Specialty Start Date End Date KwanjonnaernestinaStephanie miranda [address] [place] [address] PCP - General 04/20/23 Box Stapler Relationship Specialty Start Date End Date Tim Stephanie [address] [place] [address] PCP - General 04/20/23 Box Stapler Relationship Specialty Start Date End Date Wilfred Polanco MD [address] [place] [id number] PCP - General Family Medicine 07/17/23 Stephanie Dumont NP [address] [place] [address] Nurse Practitioner Family Medicine 04/09/23 Box Stapler Relationship Specialty Start Date End Date Wilfred Polanco MD [address] [place] [id number] PCP - General Family Medicine 07/17/23 Stephanie Dumont NP [address] [place] [address] Nurse Practitioner Family Medicine 04/09/23 Box Stapler Relationship Specialty Start Date End Date Wilfred Polanco MD [address] [place] [address] PCP - General Family Medicine 08/17/23 Stephanie Dumont NP [address] [place] [address] Nurse Practitioner Family Medicine 04/09/23 Box Stapler Relationship Specialty Start Date End Date Wilfred Polanco MD [address] [place] [phone] PCP - General Family Medicine 08/17/23 Stephanie Dumont NP [address] [place] [address] Nurse Practitioner Family Medicine 04/09/23 Box Stapler Relationship Specialty Start Date End Date Wilfred Polanco MD [address] [place] [phone] PCP - General Family Medicine 08/17/23 Stephanie Dumont NP [address] [place] [address] Nurse Practitioner Family Medicine 04/09/23 Box Stapler Relationship Specialty Start Date End Date Stephanie Dumont [address] [place] [address] PCP - General 04/20/23 Box Stapler Relationship Specialty Start Date End Date Stephanie Dumont [address] [place] [address] PCP - General 04/20/23 Goals (unrecognized section [...] BE BASED ON THE PRIMARY CLINICAL RECORDS. [facility]. provides no warranty or guarantee of the accuracy or completeness of information in this document.
[2023-09-11 12:49] LABS: Hematocrit 33.1 % (36.0-48.0); Hemoglobin 10.2 g/dL (12.0-16.0); Mean Corpuscular HGB Conc 30.8 g/dL (29.9-35.2); Mean Corpuscular Hemoglobin 31.4 pg (26.7-34.0); Mean Corpuscular Volume 101.8 fL (81.0-99.0); Mean Platelet Volume 9.6 fL (9.5-13.5); Platelet Count 131 10^3/uL (150-450); Red Blood Count 3.25 10^6/uL (4.20-5.40); Red Cell Distribution Width 14.1 % (11.0-15.0); White Blood Count 5.1 10^3/uL (4.0-11.0)
[2023-09-11 12:52] LABS: Albumin Level 3.1 g/dL (3.4-5.0); Anion Gap 11.9; BUN Creatinine Ratio 23.9; Calcium 8.6 mg/dL (8.5-10.1); Carbon Dioxide 27.5 mmol/L (21.0-32.0); Chloride 102 mmol/L (98-107); Estimated GFR (African America 60 (>=60); Estimated GFR (Non-African Ame 49 (>=60); Glucose 92 mg/dL (74-106); Magnesium 2.1 mg/dL (1.8-2.4); Potassium 4.4 mmol/L (3.5-5.1); Sodium 137 mmol/L (136-145); Uric Acid 5.8 mg/dL (2.6-6.0)
[2023-09-11 13:11] LABS: Creatinine Urine Random 26.05 mg/dL (20.00-300.00); Protein Creatinine Ratio Urine 0.23; Total Protein Urine Random <6.0 mg/dL (<=11.9)
[2023-09-11 13:16] LABS: Bilirubin Urine NEGATIVE (NEGATIVE); Blood Urine TRACE-I (NEGATIVE); Clarity Urine CLEAR (CLEAR); Color Urine LT. YELLOW (YELLOW); Glucose Urine UA NEGATIVE (NEGATIVE); Ketones Urine NEGATIVE (NEGATIVE); Leukocyte Esterase Urine NEGATIVE (NEGATIVE); Nitrite Urine NEGATIVE (NEGATIVE); Protein Urine NEGATIVE (NEG/TRACE); Urobilinogen Urine 0.2 EU/dL (0.2-1.0); pH Urine 5.5 (5.0-9.0)
[2023-09-11 13:21] LABS: Percent Iron Saturation 20.4 %
[2023-09-11 14:02] LABS: Bacteria Urine TRACE #/HPF (NONE SEEN); Mucus Urine NONE SEEN (NONE SEEN); RBC Urine 0-2 #/HPF (0-2); Squamous Epithelial Cell Urine FEW #/LPF (NONE/RARE); WBC Urine NONE SEEN #/HPF (NONE SEEN)
[2023-09-12 11:09] LABS: PTH, Intact 38 pg/mL (15-65)
== END 2023-09-11 11:17 | disposition home or self-care (01) ==
LOC: US 11:16
PROVIDERS: PCP Internal Medicine; Visit Provider Internal Medicine
DX: G47.33 Obstructive sleep apnea (adult) (pediatric) (principal); I10 Essential (primary) hypertension; M32.9 Systemic lupus erythematosus, unspecified; D69.3 Immune thrombocytopenic purpura; N28.1 Cyst of kidney, acquired; D64.9 Anemia, unspecified
CPT/HCPCS: 36415; 76775; 80069; 81001; 82306; 82570; 82728; 83540; 83550; 83735; 83970; 84156; 84550; 85027

== ENCOUNTER 2023-11-28 12:17 | Emergency (ER) | payer MEDICARE, SELFPAY ==
[2023-11-28] VITALS (24 sets, daily range): BP systolic 115–146; BP diastolic 71–90; PULSE 63–78; TEMP 36.6; O2SAT 95–100; BMI 34.2
--- NOTE | 2023-11-28 13:23 | ECG_ITS ---
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
--- NOTE | 2023-11-28 13:23 | XR_ITS ---
The [address] [address] Patient Name: JASPREET LEO MRN: [id number] date: 1950 Sex: F Assigned Patient Location: ER Current Patient Location: ED.MAIN Accession/Order Number: [id number] Exam Date: 11/28/2023 14:30 Report Date: 11/28/2023 14:49 At the request of: BETSY SCOTT Procedure: XR chest 1V EXAMINATION: XR chest 1V HISTORY: Weakness COMPARISON: XR chest 03/07/2014 FINDINGS: LUNGS: Unexpanded lungs with mild haziness within the lung bases partially obscuring the bronchovascular markings. Left lung base prominent pericardial fat pad. VASCULATURE: No increased pulmonary vasculature. PLEURA: No pneumothorax, effusion, or pleural thickening. CARDIAC: Borderline cardiomegaly. MEDIASTINUM: No visible mass or adenopathy. BONES: No fracture or visible bone lesion. OTHER: Negative. XR/XR chest 1V IMPRESSION: 1. Suspect trace amount of atelectasis or acute infiltrates overlying mild COPD. Electronically authenticated by: THA SALGUERO Date: 11/28/2023 14:49
--- NOTE | 2023-11-28 13:24 | CT_ITS ---
The [address] [address] Patient Name: JASPREET LEO MRN: [id number] date: 1950 Sex: F Assigned Patient Location: ER Current Patient Location: ER Accession/Order Number: [id number] Exam Date: 11/28/2023 14:30 Report Date: 11/28/2023 14:57 At the request of: BETSY SCOTT Procedure: CT head/brain wo con EXAMINATION: CT head/brain wo con HISTORY: Weakness COMPARISON: No relevant comparison available. TECHNIQUE: Axial CT images were obtained without IV contrast. Dose reduction techniques were achieved by using automated exposure control and/or adjustment of mA and/or kV according to patient size and/or use of iterative reconstruction technique. 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 No edema, hemorrhage, mass, acute infarction, or inappropriate atrophy. CSF SPACES: No hydrocephalus, subarachnoid hemorrhage, or mass. Appropriate for age. SKULL: No fracture, mass, or other significant visible lesion. SINUSES: No significant mucosal thickening or fluid on the limited views. ORBITS: No appreciable abnormality on the limited views. OTHER: Negative CT/CT head/brain wo con IMPRESSION: 1. No intracranial hemorrhage, CT evidence of acute ischemia, or mass. 2. Age consistent chronic changes. 3. Clear sinuses. Electronically authenticated by: THA SALGUERO Date: 11/28/2023 14:57
--- NOTE | 2023-11-28 13:25 | ED_ITS ---
HPI - Weakness General Chief complaint: Weakness Stated complaint: WEAKNESS Time Seen by Provider: 11/28/23 13:10 Source: patient Mode of arrival: walk-in Limitations: no limitations History of Present Illness HPI Narrative: Patient is a 72-year-old female who presents to the emergency department for the evaluation of generalized weakness, fatigue and weakness in the legs for the last 3 months. She states she had dizziness and a syncopal episode about 5 months ago on [place] [address]. She states for the last 3 months or more, she has been telling her PCP that she feels like her legs give out on her, she is gen erally weak and fatigued and has had occasional dizziness. She states she believes the dizziness is due to a ruptured eardrum on the left and she has had this addressed with ENT. She has no specific chest pain, fevers, chills, cough, congestion or recent illness. She denies any recent falls or injuries. She has no complaints of pain. Related Data Home Medications ?Medication ?Instructions ?Recorded ?Confirmed fostamatinib 100 mg tablet 100 mg PO BID 03/12/23 11/28/23 (Tavalisse) hydrochlorothiazide 25 mg tablet 25 mg PO DAILY 03/12/23 11/28/23 losartan 25 mg tablet 50 mg PO DAILY 03/12/23 03/12/23 pilocarpine HCl 5 mg tablet 5 mg PO TID 03/12/23 03/12/23 spironolactone 25 mg tablet 25 mg PO DAILY 03/12/23 11/28/23 alendronate 70 mg tablet 70 mg PO .QMonth 11/28/23 11/28/23 ergocalciferol (vitamin D2) 1,250 1,250 mcg PO QWEEK 11/28/23 11/28/23 mcg (50,000 unit) capsule Allergies Allergy/AdvReac Type Severity Reaction Status Date / Time vancomycin AdvReac Mild Verified 03/12/23 12:11 Review of Systems ROS Constitutional Reports: fatigue; Denies: fever or chills Eyes Denies: change in vision Ears, nose, mouth, and throat Denies: throat pain or nasal congestion Cardiovascular Denies: chest pain Respiratory Denies: shortness of breath or cough Gastrointestinal Denies: abdominal pain, nausea or vomiting Musculoskeletal Denies: back pain, neck pain, extremity pain or extremity swelling Integumentary/Breast Denies: rash Neurological Reports: weakness in extremities and dizziness; Denies: headache Hematologic/Lymphatic Denies: easy bruising or easy bleeding PFSH PFSH Social History Smoking status: Current every day smoker Exam Narrative Exam Narrative: Gen.: Awake, alert, in no distress Head: Normocephalic, atraumatic ENT: Moist mucous membranes Respiratory: No respiratory distress, lungs clear bilaterally Cardio: Regular rate and rhythm Extremities: Moves extremities equally, no injuries noted Psych: Normal mood and affect Neuro: No focal neuro deficit Skin: Warm, dry, intact Constitutional Vital Signs, click to edit/add: Last Vital Signs Temp 98 F 11/28/23 12:26 Pulse 68 11/28/23 12:26 Resp 20 11/28/23 12:26 BP 145/79 H 11/28/23 12:26 Pulse Ox 99 11/28/23 12:26 O2 Del Method Room Air 11/28/23 13:09 Course Vital Signs Vital signs: Vital Signs Temperature 98 F 11/28/23 12:26 Pulse Rate 68 11/28/23 12:26 Respiratory Rate 20 11/28/23 12:26 Blood Pressure 145/79 H 11/28/23 12:26 Pulse Oximetry 99 11/28/23 12:26 Oxygen Delivery Method Room Air 11/28/23 12:26 Temperature 98 F 11/28/23 12:26 Pulse Rate 68 11/28/23 12:26 Respiratory Rate 20 11/28/23 12:26 Blood Pressure 145/79 H 11/28/23 12:26 Pulse Oximetry 99 11/28/23 12:26 Oxygen Delivery Method Room Air 11/28/23 13:09 MDM - Weakness MDM Narrative Medical decision making narrative: Patient was treated with IV fluids, she was found to have worsening anemia over the last several months, her MCV is high so a B12, folate and iron level were added. The studies have not resulted today. CT of the brain, chest x-ray are unremarkable. Hemoccult was obtained which was negative. Patient was instructed to follow-up closely with her PCP for evaluation of her anemia which may be contributing to her progressive weakness and fatigue over the last several months. Return to the ER if symptoms change or worsen. Vital signs stable at discharge. Medical Records Attestation: I reviewed the patient's medical records. Lab Data Attestation: I reviewed the patient's lab results. Labs: Lab Results 11/28/23 11/28/23 11/28/23 Range/Units 13:35 13:43 15:11 WBC 5.2 (4.0-11.0) 10^3/uL RBC 3.03 L (4.20-5.40) 10^6/uL Hgb 9.6 L (12.0-16.0) g/dL Hct 31.4 L (36.0-48.0) % MCV 103.6 H (81.0-99.0) fL MCH 31.7 (26.7-34.0) pg MCHC 30.6 (29.9-35.2) g/dL RDW 14.0 (11.0-15.0) % Plt Count 147 L (150-450) 10^3/uL MPV 9.6 (9.5-13.5) fL Neut % (Auto) 46.2 (43.0-75.0) % Lymph % (Auto) 46.2 (20.5-60.0) % [place] % (Auto) 6.2 (1.7-12.0) % Eos % (Auto) 0.8 L (0.9-7.0) % Baso % (Auto) 0.4 (0.2-2.0) % Neut # (Auto) 2.4 (1.4-6.5) 10^3/uL Lymph # (Auto) 2.4 (1.2-3.8) 10^3/uL [place] # (Auto) 0.3 (0.3-0.8) 10^3/uL Eos # (Auto) 0.0 (0.0-0.7) 10^3/uL Baso # (Auto) 0.0 (0.0-0.1) 10^3/uL Abs Immat Gran (auto) 0.01 (0.00-0.03) 10^3/uL Imm/Tot Granulo (auto) 0.2 (0.0-0.5) % PT 10.2 (9.0-11.6) sec INR 0.96 Sodium 140 (136-145) mmol/L Potassium 4.7 (3.5-5.1) mmol/L Chloride 106 (98-107) mmol/L Carbon Dioxide 25.3 (21.0-32.0) mmol/L Anion Gap 13.4 BUN 43.0 H (7.0-18.0) mg/dL Creatinine 1.20 H (0.55-1.02) mg/dL Est GFR ( Amer) 53 L (>=60) Est GFR (Non-Af Amer) 44 L (>=60) BUN/Creatinine Ratio 35.8 Glucose 97 (74-106) mg/dL Lactate 1.0 (0.4-2.0) mmol/L Calcium 9.3 (8.5-10.1) mg/dL Iron 52.0 (50.0-170.0) ug/dL Total Bilirubin 0.4 (0.2-1.0) mg/dL AST 26 (15-37) U/L ALT 24 (14-59) U/L Alkaline Phosphatase 59 (46-116) U/L Troponin I High Sens 6.0 (4.0-51.3) pg/mL Total Protein 7.6 (6.4-8.2) g/dL Albumin 3.1 L (3.4-5.0) g/dL Globulin 4.5 g/dL Albumin/Globulin Ratio 0.7 Vitamin B12 330.0 (193.0-986.0) pg/mL Folate 7.00 L (8.60-58.90) ng/mL TSH 0.474 (0.358-3.740) uIU/mL Urine Color Yellow (YELLOW) Urine Clarity Clear (CLEAR) Urine pH 6.0 (5.0-9.0) Ur Specific [place] 1.020 (1.005-1.025) Urine Protein Negative (NEG/TRACE) mg/dL Urine Glucose (UA) Negative (NEGATIVE) mg/dL Urine Ketones Negative (NEGATIVE) mg/dL Urine Occult Blood Negative (NEGATIVE) Urine Nitrite Negative (NEGATIVE) Urine Bilirubin Negative (NEGATIVE) Urine Urobilinogen 1.0 (0.2-1.0) EU/dL Ur Leukocyte Esterase Negative (NEGATIVE) Stool Occult Blood Negative Imaging Data CT scan - head: Attestation: I have reviewed the pertinent imaging results. Radiologist's impression: ITS Impressions Chest X-Ray 11/28/23 13:23 IMPRESSION: 1. Suspect trace amount of atelectasis or acute infiltrates overlying mild COPD. Electronically authenticated by: THA SALGUERO Date: 11/28/2023 14:[address] 11/28/23 13:24 IMPRESSION: 1. No intracranial hemorrhage, CT evidence of acute ischemia, or mass. 2. Age consistent chronic changes. 3. Clear sinuses. Electronically authenticated by: THA SALGUERO Date: 11/28/2023 14:57 ECG Data Attestation: I personally reviewed and interpreted this ECG as follows: (Normal sinus rhythm at a rate of 69, no acute ST elevation or ectopy. EKG reviewed by attending physician) Discharge Plan Discharge Stand Alone Forms: Portal Instructions Chief Complaint: Weakness Clinical Impression: Anemia, Weakness Patient Disposition: Home, Self-Care Time of Disposition Decision: 15:49 Condition: Good Prescriptions / Home Meds: No Action ergocalciferol (vitamin D2) 1,250 mcg (50,000 unit) capsule 1,250 mcg PO QWEEK alendronate 70 mg tablet 70 mg PO .QMonth spironolactone 25 mg tablet 25 mg PO DAILY Tavalisse 100 mg tablet 100 mg PO BID hydrochlorothiazide 25 mg tablet 25 mg PO DAILY pilocarpine HCl 5 mg tablet 5 mg PO TID losartan 25 mg tablet 50 mg PO DAILY Print Language: [place] Instructions: Weakness (ED), Anemia (ED) Referrals: Shaikh Biswas MD [Primary Care Provider] - 1 week
[2023-11-28] MEDS: 0.9 % SODIUM CHLORIDE 1,000 ML 999 ML IV (13:45)
[2023-11-28 14:01] LABS: Basophils Percent Auto 0.4 % (0.2-2.0); Eosinophils Percent Auto 0.8 % (0.9-7.0); Hematocrit 31.4 % (36.0-48.0); Hemoglobin 9.6 g/dL (12.0-16.0); Immature Granulocytes Abs Auto 0.01 10^3/uL (0.00-0.03); Immature Granulocytes Pct Auto 0.2 % (0.0-0.5); Lymphocytes Absolute Auto 2.4 10^3/uL (1.2-3.8); Lymphocytes Percent Auto 46.2 % (20.5-60.0); Mean Corpuscular HGB Conc 30.6 g/dL (29.9-35.2); Mean Corpuscular Hemoglobin 31.7 pg (26.7-34.0); Mean Corpuscular Volume 103.6 fL (81.0-99.0); Mean Platelet Volume 9.6 fL (9.5-13.5); Monocytes Absolute Auto 0.3 10^3/uL (0.3-0.8); Monocytes Percent Auto 6.2 % (1.7-12.0); Neutrophils Absolute Auto 2.4 10^3/uL (1.4-6.5); Neutrophils Percent Auto 46.2 % (43.0-75.0); Platelet Count 147 10^3/uL (150-450); Red Blood Count 3.03 10^6/uL (4.20-5.40); White Blood Count 5.2 10^3/uL (4.0-11.0)
[2023-11-28 14:02] LABS: Bilirubin Urine NEGATIVE (NEGATIVE); Blood Urine NEGATIVE (NEGATIVE); Clarity Urine CLEAR (CLEAR); Color Urine YELLOW (YELLOW); Glucose Urine UA NEGATIVE (NEGATIVE); Ketones Urine NEGATIVE (NEGATIVE); Leukocyte Esterase Urine NEGATIVE (NEGATIVE); Nitrite Urine NEGATIVE (NEGATIVE); Protein Urine NEGATIVE (NEG/TRACE)
[2023-11-28 14:03] LABS: Urine Microscopic Indicated NO
[2023-11-28 14:13] LABS: INR 0.96; Prothrombin Time 10.2 sec (9.0-11.6)
[2023-11-28 14:24] LABS: Alanine Aminotransferase 24 U/L (14-59); Albumin Globulin Ratio 0.7; Albumin Level 3.1 g/dL (3.4-5.0); Alkaline Phosphatase 59 U/L (46-116); Anion Gap 13.4; Aspartate Amino Transferase 26 U/L (15-37); BUN Creatinine Ratio 35.8; Bilirubin Total 0.4 mg/dL (0.2-1.0); Calcium 9.3 mg/dL (8.5-10.1); Carbon Dioxide 25.3 mmol/L (21.0-32.0); Chloride 106 mmol/L (98-107); Estimated GFR (African America 53 (>=60); Estimated GFR (Non-African Ame 44 (>=60); Globulin 4.5 g/dL; Glucose 97 mg/dL (74-106); Potassium 4.7 mmol/L (3.5-5.1); Sodium 140 mmol/L (136-145); Thyroid Stimulating Hormone 0.474 uIU/mL (0.358-3.740); Total Protein 7.6 g/dL (6.4-8.2)
[2023-11-28 15:25] LABS: Occult Blood Negative
== END 2023-11-28 16:09 | disposition home or self-care (01) ==
PROVIDERS: Physician Assistant; Emergency Provider Emergency Medicine; PCP Internal Medicine
DX: D64.9 Anemia, unspecified (principal); R53.1 Weakness; Z79.899 Other long term (current) drug therapy; F17.210 Nicotine dependence, cigarettes, uncomplicated
CPT/HCPCS: 36415; 70450; 71045; 80053; 81003; 82607; 82746; 83540; 83605; 84443; 84484; 85025; 85610; 93005; 99285; G0328

== ENCOUNTER 2024-02-12 14:33 | Emergency (ER) | payer MEDICARE, SELFPAY ==
[2024-02-12] VITALS (24 sets, daily range): BP systolic 134–164; BP diastolic 74–88; PULSE 65–87; TEMP 36.6; O2SAT 84–100; BMI 34.2
--- NOTE | 2024-02-12 14:57 | ED_ITS ---
HPI HPI - General Adult General Chief complaint: Back Pain/Injury Stated complaint: PREVIOUS FALL/CLINIC REFERRAL Time Seen by Provider: 02/12/24 14:57 Source: patient History of Present Illness HPI narrative: Patient is a 73-year-old female who presents to the emergency department at the recommendation of the nurse practitioner in her primary care office for evaluation of bruising to the tailbone and right chest wall pain. Patient st ates she missed a step in her home 3 days ago and fell onto her bottom. She states that she was holding the railing with her right arm to stop herself from falling. She states she had some soreness in the tailbone at the time of falling but in the last 2 days she has had an increase in pain to the tailbone and pain in the right chest wall with movement. She states she is confident that her right chest wall pain is not her ribs hurting from the fall and is something else . She denies head injury. Patient is ambulatory. No medications taken prior to arrival. Related Data Home Medications ?Medication ?Instructions ?Recorded ?Confirmed fostamatinib 100 mg tablet 100 mg PO BID 03/12/23 11/28/23 (Tavalisse) hydrochlorothiazide 25 mg tablet 25 mg PO DAILY 03/12/23 11/28/23 losartan 25 mg tablet 50 mg PO DAILY 03/12/23 03/12/23 pilocarpine HCl 5 mg tablet 5 mg PO TID 03/12/23 03/12/23 spironolactone 25 mg tablet 25 mg PO DAILY 03/12/23 11/28/23 alendronate 70 mg tablet 70 mg PO .QMonth 11/28/23 11/28/23 ergocalciferol (vitamin D2) 1,250 1,250 mcg PO QWEEK 11/28/23 11/28/23 mcg (50,000 unit) capsule Previous Rx's ?Medication ?Instructions ?Recorded methocarbamol 750 mg tablet 750 mg PO TID PRN pain #20 tabs 02/12/24 ondansetron 4 mg disintegrating 4 mg PO Q6H PRN nausea and 02/12/24 tablet vomiting #12 tabs oxycodone-acetaminophen 5 mg-325 1 tab PO Q6H PRN pain 3 days #12 02/12/24 mg tablet (Percocet) tabs Allergies Allergy/AdvReac Type Severity Reaction Status Date / Time vancomycin AdvReac Mild burning Verified 02/12/24 14:58 Opioid HPI Opioid Management Most Recent Opioid Data: Last Pain Scale 10 02/12/24 16:31 Last MAR Pain Assessment 02/12/24 16:31 Review of Systems ROS Constitutional Denies: fever or chills Ears, nose, mouth, and throat Denies: throat pain or nasal congestion Cardiovascular Reports: chest pain Respiratory Denies: shortness of breath Gastrointestinal Denies: nausea or vomiting Musculoskeletal Reports: back pain; Denies: neck pain or extremity pain Integumentary/Breast Denies: rash Hematologic/Lymphatic Denies: easy bruising or easy bleeding PFSH PFS Social History Smoking status: Current every day smoker Exam Narrative Exam Narrative: Gen.: Awake, alert, in no distress Head: Normocephalic, atraumatic ENT: Moist mucous membranes, no evidence of head injury, C-spine nontender Respiratory: No respiratory distress, lungs clear bilaterally, pain in the right chest wall with deep breathing, no ecchymosis or crepitance noted Cardio: Regular rate and rhythm Gastrointestinal: Abdomen is soft, nondistended and nontender to palpation Back: No bony point tenderness of the T-spine or L-spine with ecchymosis noted above the buttocks. Extremities: Moves extremities equally, no injuries noted Psych: Normal mood and affect Neuro: No focal neuro deficit Skin: Warm, dry, intact Constitutional Vital Signs, click to edit/add: Last Vital Signs Temp 97.8 F 02/12/24 14:52 Pulse 67 02/12/24 18:40 Resp 18 02/12/24 18:40 BP 164/79 H 02/12/24 16:35 Pulse Ox 100 02/12/24 18:40 O2 Del Method Room Air 02/12/24 17:20 O2 Flow Rate 2 02/12/24 17:21 Course Vital Signs Vital signs: Vital Signs Temperature 97.8 F 02/12/24 14:52 Pulse Rate 73 02/12/24 14:52 Respiratory Rate 18 02/12/24 14:52 Blood Pressure 152/74 H 02/12/24 14:52 Pulse Oximetry 98 02/12/24 14:52 Oxygen Delivery Method Room Air 02/12/24 14:52 Temperature 97.8 F 02/12/24 14:52 Pulse Rate 67 02/12/24 18:40 Respiratory Rate 18 02/12/24 18:40 Blood Pressure 164/79 H 02/12/24 16:35 Pulse Oximetry 100 02/12/24 18:40 Oxygen Delivery Method Room Air 02/12/24 17:20 Oxygen Delivery Flow Rate 2 02/12/24 17:21 Medical Decision Making MDM Narrative Medical decision making narrative: Abdomen is soft and benign in the ER. Patient was medicated with 0.5 mg IV Dilaudid without significant improvement but she was given 50 mcg of fentanyl with significant improvement and is resting comfortably. Vital signs are unremarkable. CT of the chest and CT of the abdomen and pelvis were performed. No evidence of acute abnormalities noted. Laboratory studies reviewed and noted within normal limits, patient was noted to have an elevated lipase, however she has no abdominal pain, vomiting and has a CT scan with no evidence of acute pancreatitis. At this time we do not feel her symptoms represent acute pancre atitis, they are more consistent with chest wall pain and tailbone pain after a fall. She will be medicated for pain. She was offered an observation admission for pain control, however she declined this. Follow-up with PCP and return to the ER if symptoms change or worsen. SUPERVISED APC VISIT, PHYSICIAN ATTESTATION: Based on the medical record the care appears appropriate. ? Medical Records Medical records reviewed: Yes I reviewed the patient's medical records Lab Data Lab results reviewed: Yes I reviewed the patient's lab results Labs: Lab Results 02/12/24 Range/Units 15:15 WBC 6.4 (4.0-11.0) 10^3/uL RBC 3.31 L (4.20-5.40) 10^6/uL Hgb 10.6 L (12.0-16.0) g/dL Hct 32.8 L (36.0-48.0) % MCV 99.1 H (81.0-99.0) fL MCH 32.0 (26.7-34.0) pg MCHC 32.3 (29.9-35.2) g/dL RDW 14.2 (11.0-15.0) % Plt Count 165 (150-450) 10^3/uL MPV 10.2 (9.5-13.5) fL Neut % (Auto) 51.3 (43.0-75.0) % Lymph % (Auto) 42.7 (20.5-60.0) % [place] % (Auto) 4.8 (1.7-12.0) % Eos % (Auto) 0.8 L (0.9-7.0) % Baso % (Auto) 0.2 (0.2-2.0) % Neut # (Auto) 3.3 (1.4-6.5) 10^3/uL Lymph # (Auto) 2.7 (1.2-3.8) 10^3/uL [place] # (Auto) 0.3 (0.3-0.8) 10^3/uL Eos # (Auto) 0.1 (0.0-0.7) 10^3/uL Baso # (Auto) 0.0 (0.0-0.1) 10^3/uL Abs Immat Gran (auto) 0.01 (0.00-0.03) 10^3/uL Imm/Tot Granulo (auto) 0.2 (0.0-0.5) % PT 10.6 (9.0-11.6) sec INR 1.00 Sodium 133 L (136-145) mmol/L Potassium 4.6 (3.5-5.1) mmol/L Chloride 101 (98-107) mmol/L Carbon Dioxide 26.4 (21.0-32.0) mmol/L Anion Gap 10.2 BUN 42.0 H (7.0-18.0) mg/dL Creatinine 1.32 H (0.55-1.02) mg/dL Est GFR ( Amer) 48 L (>=60) Est GFR (Non-Af Amer) 39 L (>=60) BUN/Creatinine Ratio 31.8 Glucose 103 (74-106) mg/dL Calcium 9.0 (8.5-10.1) mg/dL Total Bilirubin 0.6 (0.2-1.0) mg/dL AST 33 (15-37) U/L ALT 23 (14-59) U/L Alkaline Phosphatase 78 (46-116) U/L Troponin I High Sens 4.7 (4.0-51.3) pg/mL Total Protein 7.9 (6.4-8.2) g/dL Albumin 3.2 L (3.4-5.0) g/dL Globulin 4.7 g/dL Albumin/Globulin Ratio 0.7 Lipase 243.0 H (16.0-77.0) U/L Imaging Data CT scan - chest: Attestation: I have reviewed the pertinent imaging results. Radiologist's impression: ITS Impressions Abdomen/Pelvis CT 02/12/24 15:03 IMPRESSION: 1. No acute posttraumatic change identified within the abdomen or the pelvis. 2. Mild aneurysmal dilatation of the aorta at the level of the diaphragmatic hiatus measuring 3.5 cm. Mild fusiform infrarenal abdominal aortic aneurysm measuring 3.4 cm. Moderate-severe diffuse atherosclerotic disease. 3. Diffuse demineralization. 4. Bilateral renal cysts. Benign right adrenal myelolipoma. Electronically authenticated by: GEORGE KOWALSKI Date: 02/12/2024 19:[address] 02/12/24 15:03 IMPRESSION: 1. No acute posttraumatic change within the chest. 2. Multiple subcentimeter pulmonary nodules are present, largest is an ill-defined pulmonary nodule within the right upper lobe measuring 8 mm. Short-term follow-up chest CT in 3 months time interval is recommended for reassessment. 3. Right thyroid lobe nodules, largest measuring 2 cm. Follow-up nonemergent thyroid ultrasonography is recommended. 4. Dense calcifications of the aortic valve leaflets. Moderate to severe coronary arterial calcifications. Electronically authenticated by: GEORGE KOWALSKI Date: 02/12/2024 19:00 ECG Data Attestation: I personally reviewed and interpreted this ECG as follows: Discharge Plan Discharge Stand Alone Forms: Portal Instructions Chief Complaint: Back Pain/Injury Clinical Impression: Coccygeal contusion, Acute thoracic back pain Patient Disposition: Home, Self-Care Time of Disposition Decision: 19:05 Condition: Good Prescriptions / Home Meds: New oxycodone-acetaminophen [Percocet] 5-325 mg tablet 1 tab PO Q6H PRN (Reason: pain) 3 Days Qty: 12 0RF Rx Instructions: DX: M54.5 methocarbamol 750 mg tablet 750 mg PO TID PRN (Reason: pain) Qty: 20 0RF ondansetron 4 mg tablet,disintegrating 4 mg PO Q6H PRN (Reason: nausea and vomiting) Qty: 12 0RF No Action ergocalciferol (vitamin D2) 1,250 mcg (50,000 unit) capsule 1,250 mcg PO QWEEK alendronate 70 mg tablet 70 mg PO .QMonth spironolactone 25 mg tablet 25 mg PO DAILY Tavalisse 100 mg tablet 100 mg PO BID hydrochlorothiazide 25 mg tablet 25 mg PO DAILY pilocarpine HCl 5 mg tablet 5 mg PO TID losartan 25 mg tablet 50 mg PO DAILY Print Language: Khmer Instructions: Contusion in Adults (ED), Thoracic Pain (ED) Referrals: Shaikh Biswas MD [Primary Care Provider] - 1 week
--- NOTE | 2024-02-12 15:03 | ECG_ITS ---
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
--- NOTE | 2024-02-12 15:03 | CT_ITS ---
The [address] [address] Patient Name: JASPREET LEO MRN: [id number] date: 1950 Sex: F Assigned Patient Location: ER Current Patient Location: Accession/Order Number: [id number] Exam Date: 02/12/2024 16:58 Report Date: 02/12/2024 19:00 At the request of: BETSY SCOTT Procedure: CT chest w con EXAM: CT chest w con HISTORY: Fall, right chest wall pain COMPARISON: None. TECHNIQUE: Enhanced helical acquisition obtained through the chest. FINDINGS: No mediastinal hematoma. 2 cm heterogeneous nodule within the inferior right thyroid lobe as well as additional smaller right thyroid lobe nodules. No enlarged lymph nodes within the chest. Moderate-severe atherosclerotic vascular calcifications of the coronary arteries. Dense calcifications of the aortic valve leaflets. No pneumothorax, hemothorax or pulmonary contusion. Calcified pulmonary granulomas. Subcentimeter indeterminate noncalcified bilateral lower lobe pulmonary nodules, the largest within the superior segment of the left lower lobe measuring 5 mm. Ill-defined right upper lobe pulmonary nodules, the largest within the posterior segment of the right upper lobe measuring 8 mm. The pleural spaces are clear. Diffuse demineralization. No acute fractures are identified. CT/CT chest w con IMPRESSION: 1. No acute posttraumatic change within the chest. 2. Multiple subcentimeter pulmonary nodules are present, largest is an ill-defined pulmonary nodule within the right upper lobe measuring 8 mm. Short-term follow-up chest CT in 3 months time interval is recommended for reassessment. 3. Right thyroid lobe nodules, largest measuring 2 cm. Follow-up nonemergent thyroid ultrasonography is recommended. 4. Dense calcifications of the aortic valve leaflets. Moderate to severe coronary arterial calcifications. Electronically authenticated by: GEORGE KOWALSKI Date: 02/12/2024 19:00
--- NOTE | 2024-02-12 15:03 | CT_ITS ---
The [address] [address] Patient Name: JASPREET LEO MRN: [id number] date: 1950 Sex: F Assigned Patient Location: ER Current Patient Location: ER Accession/Order Number: [id number] Exam Date: 02/12/2024 16:58 Report Date: 02/12/2024 19:00 At the request of: BETSY SCOTT Procedure: CT abdomen pelvis w con EXAM: CT abdomen pelvis w con HISTORY: Fall, right flank pain. COMPARISON: 03/12/2023. TECHNIQUE: Enhanced helical acquisition obtained through the abdomen and the pelvis. FINDINGS: Visualized lung bases and the pleural spaces are clear. Moderate-severe diffuse atherosclerotic disease of the abdominal aorta, bilateral iliac and bilateral common femoral arteries. There is mild aneurysmal dilatation of the aorta at the level of the diaphragmatic hiatus maximally measuring 3.5 cm. A 3.4 cm fusiform infrarenal abdominal aortic aneurysm is present. Prior cholecystectomy. No significant biliary ductal dilatation. The liver, spleen, pancreas and the left adrenal gland are unremarkable. A 1 cm benign myelolipoma of the right adrenal gland. Mild bilateral renal cortical scarring. Bilateral renal cortical cysts, the largest arising exophytically from the lateral right renal cortex measuring 2.5 cm. No enlarged lymph nodes within the abdomen or the pelvis. Status post hysterectomy. No ascites or focal intraperitoneal fluid collections. No fractures are identified. Diffuse demineralization. CT/CT abdomen pelvis w con IMPRESSION: 1. No acute posttraumatic change identified within the abdomen or the pelvis. 2. Mild aneurysmal dilatation of the aorta at the level of the diaphragmatic hiatus measuring 3.5 cm. Mild fusiform infrarenal abdominal aortic aneurysm measuring 3.4 cm. Moderate-severe diffuse atherosclerotic disease. 3. Diffuse demineralization. 4. Bilateral renal cysts. Benign right adrenal myelolipoma. Electronically authenticated by: GEORGE KOWALSKI Date: 02/12/2024 19:00
[2024-02-12] MEDS: METHOCARBAMOL 500 MG TABLET PO (15:22)
[2024-02-12] MEDS: HYDROMORPHONE HCL 0.5 MG/0.5 ML SYRINGE IV (15:22)
[2024-02-12] MEDS: ONDANSETRON PF 4 MG/2 ML VIAL IV (15:22)
[2024-02-12] MEDS: 0.9 % SODIUM CHLORIDE 1,000 ML 999 ML IV (15:22)
--- NOTE | 2024-02-12 15:23 | ECG_ITS ---
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
[2024-02-12 15:28] LABS: Basophils Percent Auto 0.2 % (0.2-2.0); Eosinophils Absolute Auto 0.1 10^3/uL (0.0-0.7); Eosinophils Percent Auto 0.8 % (0.9-7.0); Hematocrit 32.8 % (36.0-48.0); Hemoglobin 10.6 g/dL (12.0-16.0); Immature Granulocytes Abs Auto 0.01 10^3/uL (0.00-0.03); Immature Granulocytes Pct Auto 0.2 % (0.0-0.5); Lymphocytes Absolute Auto 2.7 10^3/uL (1.2-3.8); Lymphocytes Percent Auto 42.7 % (20.5-60.0); Mean Corpuscular HGB Conc 32.3 g/dL (29.9-35.2); Mean Corpuscular Volume 99.1 fL (81.0-99.0); Mean Platelet Volume 10.2 fL (9.5-13.5); Monocytes Absolute Auto 0.3 10^3/uL (0.3-0.8); Monocytes Percent Auto 4.8 % (1.7-12.0); Neutrophils Absolute Auto 3.3 10^3/uL (1.4-6.5); Neutrophils Percent Auto 51.3 % (43.0-75.0); Platelet Count 165 10^3/uL (150-450); Red Blood Count 3.31 10^6/uL (4.20-5.40); Red Cell Distribution Width 14.2 % (11.0-15.0); White Blood Count 6.4 10^3/uL (4.0-11.0)
[2024-02-12 15:45] LABS: Prothrombin Time 10.6 sec (9.0-11.6)
[2024-02-12 15:50] LABS: Alanine Aminotransferase 23 U/L (14-59); Albumin Globulin Ratio 0.7; Albumin Level 3.2 g/dL (3.4-5.0); Alkaline Phosphatase 78 U/L (46-116); Anion Gap 10.2; Aspartate Amino Transferase 33 U/L (15-37); BUN Creatinine Ratio 31.8; Bilirubin Total 0.6 mg/dL (0.2-1.0); Carbon Dioxide 26.4 mmol/L (21.0-32.0); Chloride 101 mmol/L (98-107); Estimated GFR (African America 48 (>=60); Estimated GFR (Non-African Ame 39 (>=60); Globulin 4.7 g/dL; Glucose 103 mg/dL (74-106); Potassium 4.6 mmol/L (3.5-5.1); Sodium 133 mmol/L (136-145); Total Protein 7.9 g/dL (6.4-8.2); Troponin I High Sensitivity 4.7 pg/mL (4.0-51.3)
[2024-02-12] MEDS: FENTANYL CITRATE/PF 100 MCG/2 ML VIAL 50 MCG IV (16:31)
== END 2024-02-12 19:23 | disposition home or self-care (01) ==
PROVIDERS: Physician Assistant; Emergency Provider Student in an Organized Health Care Education/Training Program; PCP Internal Medicine
DX: S30.0XXA Contusion of lower back and pelvis, initial encounter (principal); M54.6 Pain in thoracic spine; W10.9XXA Fall (on) (from) unspecified stairs and steps, initial encounter; F17.210 Nicotine dependence, cigarettes, uncomplicated
CPT/HCPCS: 36415; 71260; 74177; 80053; 83690; 84484; 85025; 85610; 93005; 96374; 96375; 99285; J1170; J2405; J3010; Q9967

== ENCOUNTER 2024-03-22 13:03 | Outpatient (OUT) | payer MEDICARE, SELFPAY ==
--- NOTE | 2024-03-22 13:00 | CA_ITS ---
Patient Name: JASPREET LEO MR#: [id number] : 1950 Exam Date: 03/22/2024 Ordering Doctor: STEPH Dumont CNP ECHOCARDIOGRAM REPORT PROCEDURE: CA ECHO DOPPLER COMPLETE INDICATIONS: Calcification of aortic valve, coronary artery disease, hypertension, smoker COMPARISON: None. DESCRIPTION: COMPLETE ECHOCARDIOGRAM Real-time transthoracic echocardiography with 2D, M-mode, spectral and color flow Doppler performed. QUALITY: Technical quality was good. LEFT VENTRICLE: Normal chamber size. Mild concentric left ventricular hypertrophy. LV EF: Global left ventricular systolic function is hyperdynamic; visually estimated ejection fraction is 65 to 70%. No obvious wall motion abnormalities. DIASTOLIC: Normal diastolic function. ATRIAL SEPTUM: Visually appears intact. LEFT ATRIUM: Normal chamber size. RIGHT ATRIUM: Normal chamber size. RIGHT VENTRICLE: Normal chamber size. Normal right ventricular systolic function. TRICUSPID VALVE: Normal mobility and thickness. No stenosis with trivial regurgitation. Doppler studies reveal mildly (35-45) elevated right sided pressures. RVSP 37 mmHg MITRAL VALVE: Normal mobility and thickness. No evidence of mitral valve stenosis. There is no mitral annular calcification. Trivial mitral regurgitation. AORTIC VALVE: Normal trileaflet appearance. Mildly calcified aortic valve with diminished mobility. Doppler velocity suggests no aortic valve stenosis. Trivial aortic regurgitation. AORTIC ROOT: Normal diameter and appearance. Ascending aorta and aortic arch are normal in size. PULMONIC VALVE: Normal thickness and mobility. No stenosis. Trivial regurgitation. PERICARDIUM: No evidence of pericardial effusion. IVC: IVC is dilated (2.2 cm) with no collapse. CONCLUSION: 1. Global left ventricular systolic function is hyperdynamic; visually estimated ejection fraction is 65 to 70% 2. Normal right ventricular size and systolic function 3. Mild left ventricular hypertrophy 4. Normal diastolic function 5. The left atrium is normal in size 6. Mildly elevated right ventricular systolic pressure; RVSP 37 mmHg 7. No significant valvular abnormalities Adult Echocardiography Procedure Report Left Ventricle LVEDD (3.7 - 5.6 cm): 4.09 cm LVESD (2.2 - 4.0 cm): 2.58 cm LVIVS thickness (0.6 - 1.2 cm): 1.20 cm LVPW thickness (0.5 - 1.0 cm): 1.06 cm e': 0.07 m/s E - e': 10.67 LVOT Max Gradient: 4.00 mm[Hg] LVOT Area (cm2): 1.00 m/s Peak Velocity (LVOT): 1.00 m/s Mean Velocity (LVOT): 0.61 m/s LVOT Diameter 1.86 cm Left Atrium LA Volume Index (2D A2C): 28.04 ml/m2 Left Atrium Systolic Dimension: 3.52 cm Mitral Valve MV E to A Ratio: 0.90 Mitral Valve A-Wave Peak Velocity: 0.84 m/s Mitral Valve E-Wave Peak Velocity: 0.76 m/s Right Ventricle Aorta AO Root Diam: 2.96 cm Ascending Ao Diam: 2.00 cm Aortic Valve AoV Area (Peak Ab): 1.40 cm2, 1.48 cm2 AoV Area (VTI): 1.61 cm2, 1.61 cm2 Peak Velocity(Antegrade Flow): 1.83 m/s, 1.94 m/s Peak Gradient(Antegrade Flow): 13.32 mm[Hg], 15.09 mm[Hg] Mean Velocity(Antegrade Flow): 1.20 m/s, 1.26 m/s Mean Gradient(Antegrade Flow): 6.69 mm[Hg], 7.42 mm[Hg] Velocity Time Integral: 39.89 cm, 39.38 cm Tricuspid Valve Peak Velocity (Regurgitant Flow): 2.36 m/s Pulmonic Valve Mean Gradient: 2.67 mm[Hg] Mean Velocity: 0.76 m/s Peak Velocity: 1.09 m/s, 1.10 m/s Peak Gradient: 4.88 mm[Hg], 4.78 mm[Hg] Right Atrium Right Atrium Systolic Pressure: 34.12 ml, 34.12 ml Dictated by: Madelaine Brady M.D. on 03/22/2024 at 15:30 Approved by: Madelaine Brady M.D. on 03/22/2024 at 15:33
== END 2024-03-22 13:04 | disposition home or self-care (01) ==
LOC: CARD 13:03
PROVIDERS: PCP Nurse Practitioner; Visit Provider Nurse Practitioner
DX: I35.9 Nonrheumatic aortic valve disorder, unspecified (principal); I25.10 Atherosclerotic heart disease of native coronary artery without angina pectoris
CPT/HCPCS: 93306

== ENCOUNTER 2024-04-03 09:55 | Outpatient (OUT) | payer MEDICARE, SELFPAY ==
--- NOTE | 2024-04-03 10:00 | US_ITS ---
[address] [address] Patient Name: JASPREET LEO MRN: [id number] date: 1950 Sex: F Assigned Patient Location: US Current Patient Location: Accession/Order Number: [id number] Exam Date: 04/03/2024 10:02 Report Date: 04/04/2024 13:26 At the request of: ALEXI TOPETE Procedure: US thyroid EXAMINATION: US thyroid HISTORY: Thyroid Nodule E04.1 COMPARISON: Ultrasound thyroid 02/13/2014 FINDINGS: RIGHT LOBE: Slightly heterogeneous echotexture. 1.3 cm TR 4 nodule within superior pole. 2.0 cm TR 4 nodule within mid body. Lobe size: 4.5 x 1.7 x 1.8 cm LEFT LOBE: Slightly heterogeneous echotexture. 2.1 cm TR 3 nodule within mid body. Incidental colloid cyst within superior pole. Lobe size: 4.3 x 1.9 x 1.9 cm ISTHMUS: Slightly heterogeneous echotexture. Thickness: 1 mm US/US thyroid IMPRESSION: 1. Within the right thyroid lobe is a 1.3 cm and a 2.0 cm TR 4 nodule. The larger nodule should be considered for fine-needle aspiration. TR4 (moderately suspicious): If > 1.0 cm, follow-up ultrasound in 1, 2, 3, and 5 years. If > 1.5 cm, fine needle aspiration (FNA). Electronically authenticated by: THA SALGUERO Date: 04/04/2024 13:26
--- OUTSIDE RECORDS SUMMARY | 2024-04-03 10:04 | XMS_ITS | CCD ---
Author Organization [facility] Care Team Providers Care Air Pollution Compliance Inspector Name Role Phone COTY WRIGHT Unavailable Unavailable COTY WRIGHT Unavailable Unavailable BRANDY SCHERERGAN B Unavailable Unavailable VANCE SCHERER B Unavailable Unavailable Unavailable Primary Care Provider Unavailabl e Paloma Saldaña Primary Care Provider [phone] Tyrel, Gilson Unavailable Unavailable Primary Care Provider Unavailabl e Unavailable Primary Care Provider UnavailMD Gilson Galvez Attending Provider NON STAFF Primary Care Provider Unavailaudrey Biswas MD [facility] Primary Care Provider Stephanie Dumont Primary Care Provider Tim ELECTION CLERK, Stephanie Unavailable Wilfred Polanco MD Primary Care Provider Tyrel, Gilson Attending Unavailable Tyrel, Gilson Admitting Unavailable NON STAFF Primary Care Unavailable Tyrel Gilson Attending Unavailable Tyrel, Gilson Admitting Unavailable Wilfred Polanco MD Primary Care Provider [phone] Unavailable Primary Care Provider Unavailabl e Stephanie Dumont Primary Care Provider SUSANNA GRAF Referring Unavailable SUSANNA GRAF Admitting Unavailable SUSANNA GRAF Attending Unavailable MAR MAYO Referring Unavaila ble Stephanie Dumont Primary Care Provider UnavailSUSANNA Aguila Attending Unavailable MAR MAYO Referring Unavaila ble EMANI BAL Attending UnavailSUSANNA Aguila Attending Unavailable STEPHANIE DUMONT Referring Unavailable STEPHANIE DUMONT Primary Care Unavailable KARLEE ALEJANDREORAH A Attending Unavailable AICHHOLZ, STEPHANIE Referring Unavailable TIMMIS, MAR H Attending Unavailable AICHHOLZ, STEPHANIE Referring Unavailable AICHHOLZ, STEPHANIE Attending Unavailable AICHHOLZ, STEPHANIE Attending Unavailable AICHHOLZ, STEPHANIE Attending Unavailable AICHHOLZ, STEPHANIE Attending Unavailable ABHYANKAR, RINKU Referring Unavailable LIZETT, NAA M Attending Unavailable LIZETT, ANA M Attending Unavailable ABHYANKAR, RINKU Referring Unavailable ABHYANKAR, RNIKU Attending Unavailable ABHYANKAR, RINKU Referring Unavailable ABHYANKAR, RINKU Attending Unavailable ABHYANKAR, RINKU Referring Unavailable GODWIN, JAYDEN Referring Unavailable ABHYANKAR, RINKU Attending Unavailable ABHYANKAR, RINKU Referring Unavailable GODWIN, JAYDEN Referring Unavailable ABHYANKAR, RINKU Referring Unavailable ABHYANKAR, RINKU Attending Unavailable GODWIN, JAYDEN Referring Unavailable ABHYANKAR, RINKU Referring Unavailable ABHYANKAR, RINKU Attending Unavailable ABHYANKAR, RINKU Attending Unavailable ABHYANKAR, RINKU Referring Unavailable ABHYANKAR, RINKU Referring Unavailable ABHYANKAR, RINKU Attending Unavailable ABHYANKAR, RINKU Referring Unavailable Allergies Allergy Classification Reported Allergen(s) Allergy Type Date of Onset Reaction(s) Facility (1 source) codeine; Translations: [CODEINE PHOSPHATE] Drug Allergy 05-20-20 09 [facility] Repository (1 source) codeine; Translations: [CODEINE SULFATE] Drug Allergy 05-20-20 09 [facility] Repository (1 source) VANCOMYCIN AND DERIVATIVES; Translations: [VANCOMYCIN AND DERIVATIVES] Propensity to adverse reactions (disorder) 05-20-20 09 [facility] Repository (20 sources) Vancomycin; Translations: [VANCOMYCIN] Drug Allergy 03-03-20 16 Unknown, Other [facility] (7 sources) Tetanus Vaccines And Toxoid; Translations: [TETANUS VACCINES AND TOXOID] Drug Allergy 03-03-20 16 Unknown [facility] (1 source) Tetanus vaccine Drug allergy Unknown [facility] Other (20 sources) Tetanus Vaccines And Toxoid Drug Allergy 03-03-20 16 Unknown [facility] (4 sources) Tetanus vaccine Drug allergy Unknown [facility] Other (6 sources) Tetanus-Diphth- Acell Pertussis Drug Intolerance 06-06-20 [facility] (1 source) Vancomycin Drug Allergy 06-28-20 [facility] Repository (1 source) tetanus toxoid, adsorbed Drug allergy (disorder) 06-28-20 [facility] Repository (15 sources) Diphtheria,Pert ussis (Acellular),Tet anus Vaccine; Translations: [DIPHTHERIA,PER TUSSIS (ACELLULAR),TET ANUS VACCINE] Propensity to adverse reactions 06-06-20 [facility] Medications Current Medications Medication Drug Class(es) Dates Sig (Normalized) Sig (Original) acetaminophen 325 mg / oxyCODONE hydrochloride 5 mg oral tablet (2 sources) Opioid Agonist Start: 02-12-2024 take 1 tablet by mouth every six hours as needed oxyCODONE-acetamin ophen (PERCOCET) 5-325 mg tablet Take 1 tablet by mouth every 6 hours as needed for pain. 02/12/2024 Active alendronic acid 70 mg oral tablet (20 sources) Bisphosphonate Start: 06-06-2023 End: 08-29-2023 alendronate (FOSAMAX) 70 mg tablet PLEASE SEE ATTACHED FOR DETAILED DIRECTIONS 06/06/2023 Active Alendronate Sodi um 70 MG 1 tablet 30 minutes before the first food, beverage or medicine of the day with plain water Orally ONCE A WEEK Active Comment on above: PLEASE SEE ATTACHED FOR DETAILED DIRECTIONS benzonatate 100 mg oral capsule (20 sources) Non-narcotic Antitussive Start: 2021 End: 2022 take 1 capsule by mouth every six hours as needed benzonatate (TESSALON PERLE) 100 mg capsule TAKE 1 CAPSULE BY MOUTH EVERY 6 HOURS NEEDED FOR COUGH. 100 capsule 07/25/2022 Active Comment on above: Take 1 capsule by [facility] every 6 hours as needed for cough. calcium chloride 0.0014 meq/ml / potassium chloride 0.004 meq/ml / sodium chloride 0.103 meq/ml / sodium lactate 0.028 meq/ml injectable solution (1 source) Start: 2023 take 100 mL intravenously every hour 100 mL/hr, intravenous, Continuous, Starting on Mon12/18/23 at 1300, Recovery (only) cephalexin 500 mg oral capsule (1 source) Cephalosporin Antibacterial Start: 2023 End: 2023 take 1 capsule by mouth three times daily cephalexin (Keflex) 500 mg capsule Indications: Cholesteatoma of left ear Take 1 capsule (500 mg) by mouth 3 times a day for 7 days. 21 capsule 12/18/2023 12/25/2023 Active cholecalciferol (Vitamin D3) 200 Unit tablet split tablet (6 sources) cholecalciferol (Vitamin D3) 200 Unit tablet split tablet Take 2,000 Units by mouth in the morning. 0 Active cholecalciferol, vitamin D3, (VITAMIN D3 ORAL) (20 sources) cholecalciferol, vitamin D3, (VITAMIN D3 ORAL) Take by mouth. Active cholecalciferol, vitamin D3, (VITAMIN D3 ORAL) Take by mouth. 0 Active Comment on above: Take by mouth. ciprofloxacin 3 mg/ml / dexamethasone 1 mg/ml otic suspension (1 source) Corticosteroid, Quinolone Antimicrobial Start : 12-17 ciprofloxacin-dexamethas one (CiproDEX) otic suspension Indications: Cholesteatoma of left ear Administer 4 drops into affected ear(s) 2 times a day. Start your ear drops on 12/18 and continue until follow up 7.5 mL 12/18/2023 Active ergocalciferol 1.25 mg oral capsule (14 sources) Provitamin D2 Compound Start : 06-28 take 1 capsule by mouth every week ergocalciferol 50,000 unit capsule (VITAMIN D2, DRISDOL) Take 1 capsule by mouth one time a week. 06/28/2023 Active Comment on above: Take 1 capsule by mo [facility] one time a week. fostamatinib 100 mg [...] by darling th two times a day. hydroCHLOROthiazide 25 mg oral tablet (20 sources) Thiazide Diuretic Start : 01-26 End: 01-18 take 1 tablet by mouth once daily hydroCHLOROthiazide 25 mg tablet Indications: Essential hypertension , Chronic ITP (idiopathic thrombocytopenia) (HCC) , Obstructive sleep apnea syndrome take 1 tablet by mouth every day 90 tablet 3 01/19/2024 Active Start: 07-28-2021 End: 01-17-2022 take 1 tablet by mouth once daily hydroCHLOROthiazide (HYDRODIURIL, ESIDRIX) 25 mg tablet Indications: Essential hypertension , Chronic ITP (idiopathic thrombocytopenia) (HCC) , Obstructive sleep apnea syndrome TAKE 1 TABLET BY MOUTH EVERY DAY 90 tablet 3 01/17/2022 Active Comment on above: TAKE 1 TABLET BY DARLING TH EVERY DAY Take 1 tablet by darling th once daily. 0.5 ml HYDROmorphone hydrochloride 1 mg/ml prefilled syringe (2 sources) Opioid Agonist Start: 12-18-2023 0.5 mg, intravenous, Every 5 min PRN, pain severe (7-10), first line, Starting on Mon12/18/23 at 1242, Recovery (only), Max total of 4 mg regardless of dose. Start: 12-18-2023 0.2 mg, intrav enous, Every 5 min PRN, pain moderate (4-6), first line, Starting on Mon12/18/23 at 1242, Recovery (only), Max total of 4 mg regardless of dose. losartan potassium 25 mg oral tablet (20 sources) Angiotensin 2 Receptor Natividad Start: 03-30-2022 End: 03-09-2024 take 2 tablets by mouth once daily at bedtime losartan (COZAAR) 25 mg tablet Indications: Hypertension, unspecified type take 2 tablets by mouth every day at bedtime 180 tablet 3 09/04/2023 Active Start: 02-06-2022 End: 03-07-2022 take 2 [...] by mo uth every day at bedtime methocarbamol 750 mg oral tablet (2 sources) Muscle Relaxant take 1 tablet by mouth three times daily methocarbamol (ROBAXIN) 750 mg tablet Take 750 mg by mouth three times a day. Active 24 hr metoprolol succinate 25 mg extended release oral tablet (2 sources) beta-Adrenergic Natividad Start: 03-04-20 End: 04-03-20 take 1 tablet by mouth once daily metoprolol succinate ER (TOPROL XL) 25 mg 24 hr tablet Take 12.5 mg by mouth once daily. 03/04/2024 04/03/2024 Active ondansetron 4 mg disintegrating oral tablet (3 sources) Serotonin-3 Receptor Antagonist Start: 02-12-20 take 1 tablet by mouth every eight hours as needed ondansetron orally disintegrating (ZOFRAN ODT) 4 mg disintegrating tablet Take 4 mg by mouth every 8 hours as needed for nausea/vomiting. 02/12/2024 Active Start: 12-18-2023 4 mg, intraven ous, Once as needed, nausea/vomiting, first line, Starting on Mon12/18/23 at 1242, For 1 dose, Recovery (only), When administering via IV Push, administer over 3-5 minutes. pilocarpine hydrochloride 5 mg oral tablet (20 sources) Cholinergic Receptor Agonist Start: 01-28-2024 take 1 tablet by mouth three times daily pilocarpine (SALAGEN) 5 mg tablet Take 1 tablet by mouth three times a day. 90 tablet 3 01/28/2024 Active Start: 01-27-2023 End: 01-11-2024 take 1 tablet by mouth three times daily pilocarpine (Salagen) 5 mg tablet Take 1 tablet (5 mg) by mouth 3 times a day. 01/27/2023 01/11/2024 Active Start: 07-20-2022 End: 10-26-2022 take 1 [...] three times daily. TAKE 1 TABLET BY DARLIGN TH THREE TIMES A DAY promethazine (Phenergan) 6.25 mg in sodium chloride 0.9% 50 mL IV (1 source) Start: 12-18-19 6.25 mg, intravenous, Administer over 15 Minutes, Once as needed, Nausea/vomiting, second line, Starting on Mon12/18/23 at 1242, For 1 dose, Recovery (only) spironolactone 25 mg oral tablet (20 sources) Aldosterone Antagonist Start: 09-08-19 take 1 tablet by mouth once daily spironolactone (ALDACTONE) 25 mg tablet Take 25 mg by mouth once daily. 09/07/2022 Active Comment on above: Take 25 mg by mouth once daily. traMADol hydrochloride 50 mg oral tablet (3 sources) Opioid Agonist Start: 12-18-19 End: 12-23-19 take 1 tablet by mouth every six hours as needed traMADol (ULTRAM) 50 mg tablet Take 50 mg by mouth every 6 hours as needed for pain. 12/18/2023 Active Completed/Discontinued Medications Medication Drug Class(es) Dates Sig (Normalized) Sig (Original) acetaminophen 325 mg oral tablet (1 source) Start: 12-18-2023 End: 12-18-2023 take 975 mg by mouth once as needed for pain 975 mg, oral, Once, On Mon12/18/23 at 1430, For 1 dose, Recovery & On Unit, If ordered PRN for pain, nurse is permitted to administer this medication for higher pain scores based on patient preference? Yes Start: 12-18-2023 End: 12-18-2023 take 975 mg by mouth once as needed for pain 975 mg, oral, Once, On Mon12/18/23 at 1430, For 1 dose, Recovery & On Unit, If ordered PRN for pain, nurse is permitted to administer this medication for higher pain scores based on patient preference? Yes amoxicillin 875 mg / clavulanate 125 mg [...] Comment on above: Take 1 tablet by mouth twice daily for 1 4 days. furosemide 20 mg oral tablet (1 source) Loop Diuretic End: 07-16-2021 furosemide (LASIX) 20 mg tablet Take 20 mg by mouth as needed. 0 07/16/2021 Discontinued (Discontinued by Patient) Comment on above: Take 20 mg by mouth as needed. ibuprofen 200 mg oral tablet (1 source) Nonsteroidal Anti-inflammatory Drug End: 07-16-2021 take 1 tablet by mouth every six hours as needed ibuprofen (MOTRIN) 200 mg tablet Take 200 mg by mouth every 6 hours as needed. 0 07/16/2021 Discontinued (Discontinued by Patient) Comment on above: Take 200 mg by mouth every 6 hours as ne eded. lisinopril 10 mg oral tablet (1 source) Angiotensin Converting Enzyme Inhibitor Start: 04-29-2021 End: 05-13-2021 take 1 tablet by mouth once daily lisinopril (ZESTRIL, PRINIVIL) 10 mg tablet Indications: Secondary hypertension Take 1 tablet by mouth once daily. 30 tablet 1 04/29/2021 05/13/2021 Discontinued Comment on above: Take 1 tablet by mouth once daily. Magnesium (1 source) End: 07-16-2021 MAGNESIUM ORAL Take by mouth. 0 07/16/2021 Discontinued (Discontinued by Patient) Comment on above: Take by mouth. vitamin b12 1 mg/ml injectable solution (1 source) Vitamin B12 Start: 03-05-2024 End: 03-05-2024 inject 1 dose by intramuscular injection once 1,000 mcg, INTRAMUSCULAR, ONCE, 1 dose, On Mon03/05/24 at 1130 Zinc (1 source) End: 07-16-2021 ZINC ORAL Take by mouth. 0 07/16/2021 Discontinued (Discontinued by Patient) Comment on above: Take by mouth. Problems Active Problems Problem Classification Problem Date Documented Date Episodic/Chronic Chronic kidney disease (2 sources) Chronic kidney disease stage 3B ; Translations: [Stage 3b chronic kidney disease (HCC)] 11-24-2023 Chronic Coagulation and hemorrhagic disorders (20 sources) Chronic idiopathic thrombocytopenic purpura; Translations: [Immune thrombocytopenic purpura] Onset: 03-03-2016 Resolved: 11-10-2021 Chronic Deficiency and other anemia (3 sources) Anemia, unspecified; Translations: [Anemia, unspecified] Onset: 06-28-2023 Episodic Deficiency and other anemia (4 sources) 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 B>12< deficiency; Translations: [Other megaloblastic anemias, not elsewhere classified] Onset: 03-05-2024 03-05-2024 Episodic Essential hypertension (20 sources) Essential hypertension; Translations: [Essential (primary) hypertension] Onset: 05-13-2021 Resolved: 11-10-2021 Chronic Hypertension with complications and secondary hypertension (1 source) Secondary hypertension; Translations: [Secondary hypertension, unspecified] 11-24-2023 Chronic Malaise and fatigue (2 sources) Malaise and fatigue; Translations: [Other malaise] Episodic Nutritional deficiencies (2 sources) Vitamin D deficiency; Translations: [Vitamin D deficiency, unspecified] Chronic Osteoporosis (6 sources) Senile osteoporosis; Translations: [Age-related osteoporosis without current pathological fracture] Onset: 06-06-2023 06-06-2023 Chronic Other aftercare (2 sources) Encounter for other specified surgical aftercare; Translations: [Encounter for other specified surgical aftercare] Onset: 02-06-2024 Episodic Other connective tissue disease (20 sources) [...] on the contralateral side] 08-16-2023 Chronic Other ear and sense organ disorders (5 sources) Cholesteatoma; Translations: [Unspecified cholesteatoma, left ear] Onset: 11-14-2023 11-14-2023 Episodic Other ear and sense organ disorders (6 sources) Unspecified cholesteatoma, left ear; Translations: [Unspecified cholesteatoma, left ear] Onset: 11-14-2023 Episodic Other lower respiratory disease (2 sources) Multiple nodules of lung; Translations: [Other nonspecific abnormal finding of lung field] Episodic Other nervous system disorders (6 sources) Compression injury of nerve; 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, unspecified] Onset: 06-28-2022 06-06-2023 Chronic Other nervous system disorders (1 source) Postoperative pain ; Translations: [Other acute postprocedural pain] 12-18-2023 Episodic Other nervous system disorders (2 sources) Other acute postprocedural pain; Translations: [Other acute postprocedural pain] Onset: 12-18-2023 Episodic Other non-traumatic joint disorders (6 sources) Pain [...] unspecified] Episodic Otitis media and related conditions (12 sources) Perforation of left tympanic membrane; Translations: [Unspecified perforation of tympanic membrane, left ear] Onset: 06-06-2023 08-16-2023 Episodic Peripheral and visceral atherosclerosis (13 sources) Intermittent claudication; Translations: [Peripheral vascular disease, [...] (2 sources) Unknown / UNK(Unknown) Onset: 05-24-2016 Unclassified (2 sources) Post-op; Translations: [Post-op] Onset: 01-02-2024 Past or Other Problems Problem Classification Problem [...] of thyroid, unspecified] Onset: 06-28-2022 06-06-2023 Episodic Unclassified (3 sources) Onset: 11-14-2023 11-14-2023 Results Test Name Value Interpretation Reference Range Facility CBC W Auto Differential pane l (Bld)on 03-05-2024 Basophils (Bld) [#/Vol] 10*3/uL Normal <0.11 [facility] Comment on above: Order Comment: Speci men Type: BLOOD SPECIMENOrdering Facility: [facility] Address: [address] [place] [address] Performed By: #### 5 7021-8 ####[facility] LABCLIA [id number] [place] [address] Basophils/100 WBC (Bld) 0.2 % Normal [facility] Comment on above: Order Comment: Speci men Type: BLOOD SPECIMENOrdering Facility: [facility] Address: [address] [place] [address] Performed By: #### 5 7021-8 ####[facility] LABCLIA [id number] [place] [address] Differential cell count method Nom (Bld) Auto Normal [facility] Comment on above: Order Comment: Speci men Type: BLOOD SPECIMENOrdering Facility: [facility] Address: [address] [place] [address] Performed By: #### 5 7021-8 ####[facility] LABCLIA [id number] [place] [address] Eosinophils (Bld) [#/Vol] 0.06 10*3/uL Normal <0.46 [facility] Comment on above: Order Comment: Speci men Type: BLOOD SPECIMENOrdering Facility: [facility] Address: [address] [place] [address] Performed By: #### 5 7021-8 ####[facility] LABCLIA [id number] [place] [address] Eosinophils/100 WBC (Bld) 1.3 % Normal [facility] Comment on above: Order Comment: Speci men Type: BLOOD SPECIMENOrdering Facility: [facility] Address: [address] [place] [address] Performed By: #### 5 7021-8 ####[facility] LABCLIA [id number] [place] [address] Erythrocyte distribution width (RBC) [Ratio] 14.6 % Normal 11.5-15.0 [facility] Comment on above: Order Comment: Speci men Type: BLOOD SPECIMENOrdering Facility: [facility] Address: [address] [place] [address] Performed By: #### 5 7021-8 ####[facility] LABCLIA [id number] [place] [address] Hematocrit (Bld) [Volume fraction] 31.2 % Low 36.0-46.0 [facility] Comment on above: Order Comment: Speci men Type: BLOOD SPECIMENOrdering Facility: [facility] Address: [address] [place] [address] Performed By: #### 5 7021-8 ####[facility] LABCLIA [id number] [place] [address] Hemoglobin (Bld) [Mass/Vol] 9.9 g/dL Low 11.5-15.5 [facility] Comment on above: Order Comment: Speci men Type: BLOOD SPECIMENOrdering Facility: [facility] Address: [address] [place] [address] Performed By: #### 5 7021-8 ####[facility] LABCLIA [id number] [place] [address] Immature granulocytes (Bld) [#/Vol] 10*3/uL Normal <0.10 [facility] Comment on above: Order Comment: Speci men Type: BLOOD SPECIMENOrdering Facility: [facility] Address: [address] [place] [address] Performed By: #### 5 7021-8 ####[facility] LABCLIA [id number] [place] [address] Immature granulocytes/100 WBC (Bld) 0.0 % Normal [facility] Comment on above: Order Comment: Speci men Type: BLOOD SPECIMENOrdering Facility: [facility] Address: [address] [place] [address] Performed By: #### 5 7021-8 ####[facility] LABCLIA [id number] [place] [address] Lymphocytes (Bld) [#/Vol] 1.68 10*3/uL Normal 1.00-4.00 [facility] Comment on above: Order Comment: Speci men Type: BLOOD SPECIMENOrdering Facility: [facility] Address: [address] [place] [address] Performed By: #### 5 7021-8 ####[facility] LABCLIA [id number] [place] [address] Lymphocytes/100 WBC (Bld) 36.4 % Normal [facility] Comment on above: Order Comment: Speci men Type: BLOOD SPECIMENOrdering Facility: [facility] Address: [address] [place] [address] Performed By: #### 5 7021-8 ####[facility] LABCLIA [id number] [place] [address] MCH (RBC) [Entitic mass] 31.0 pg Normal 26.0-34.0 [facility] Comment on above: Order Comment: Speci men Type: BLOOD SPECIMENOrdering Facility: [facility] Address: [address] [place] [address] Performed By: #### 5 7021-8 ####[facility] LABCLIA [id number] [place] [address] MCHC (RBC) [Mass/Vol] 31.7 g/dL Normal 30.5-36.0 [facility] Comment on above: Order Comment: Speci men Type: BLOOD SPECIMENOrdering Facility: [facility] Address: [address] [place] [address] Performed By: #### 5 7021-8 ####[facility] LABCLIA [id number] [place] [address] MCV (RBC) [Entitic vol] 97.8 fL Normal 80.0-100.0 [facility] Comment on above: Order Comment: Speci men Type: BLOOD SPECIMENOrdering Facility: [facility] Address: [address] [place] [address] Performed By: #### 5 7021-8 ####[facility] LABCLIA [id number] [place] [address] Monocytes (Bld) [#/Vol] 0.22 10*3/uL Normal <0.87 [facility] Comment on above: Order Comment: Speci men Type: BLOOD SPECIMENOrdering Facility: [facility] Address: [address] [place] [address] Performed By: #### 5 7021-8 ####[facility] LABCLIA [id number] [place] [address] Monocytes/100 WBC (Bld) 4.8 % Normal [facility] Comment on above: Order Comment: Speci men Type: BLOOD SPECIMENOrdering Facility: [facility] Address: [address] [place] [address] Performed By: #### 5 7021-8 ####[facility] LABCLIA [id number] [place] [address] Neutrophils (Bld) [#/Vol] 2.65 10*3/uL Normal 1.45-7.50 [facility] Comment on above: Order Comment: Speci men Type: BLOOD SPECIMENOrdering Facility: [facility] Address: [address] [place] [address] Performed By: #### 5 7021-8 ####[facility] LABCLIA [id number] [place] [address] Neutrophils/100 WBC (Bld) 57.3 % Normal [facility] Comment on above: Order Comment: Speci men Type: BLOOD SPECIMENOrdering Facility: [facility] Address: [address] [place] [address] Performed By: #### 5 7021-8 ####[facility] LABCLIA [id number] [place] [address] Nucleated RBC (Bld) [#/Vol] 10*3/uL Normal <0.01 [facility] Comment on above: Order Comment: Speci men Type: BLOOD SPECIMENOrdering Facility: [facility] Address: [address] [place] [address] Performed By: #### 5 7021-8 ####[facility] LABCLIA [id number] [place] [address] Nucleated RBC/100 WBC (Bld) [Ratio] 0.0 /100 WBC Normal [facility] Comment on above: Order Comment: Speci men Type: BLOOD SPECIMENOrdering Facility: [facility] Address: [address] [place] [address] Performed By: #### 5 7021-8 ####[facility] LABCLIA [id number] [place] [address] Platelet mean volume (Bld) [Entitic vol] 9.6 fL Normal 9.0-12.7 [facility] Comment on above: Order Comment: Speci men Type: BLOOD SPECIMENOrdering Facility: [facility] Address: [address] [place] [address] Performed By: #### 5 7021-8 ####[facility] LABCLIA [id number] [place] [address] Platelets (Bld) [#/Vol] 144 10*3/uL Low 150-400 [facility] Comment on above: Order Comment: Speci men Type: BLOOD SPECIMENOrdering Facility: [facility] Address: [address] [place] [address] Performed By: #### 5 7021-8 ####[facility] LABCLIA [id number] [place] [address] RBC (Bld) [#/Vol] 3.19 10*6/uL Low 3.90-5.20 [facility] Comment on above: Order Comment: Speci men Type: BLOOD SPECIMENOrdering Facility: [facility] Address: [address] [place] [address] Performed By: #### 5 7021-8 ####[facility] LABIA [id number] [place] [address] WBC (Bld) [#/Vol] 4.62 10*3/uL Normal 3.70-11.00 [facility] Comment on above: Order Comment: Speci men Type: BLOOD SPECIMENOrdering Facility: [facility] Address: [address] [place] [address] Performed By: #### 5 7021-8 ####[facility] LABIA [id number] [place] [address] CNNURSEon 03-05-2024 CNNURSE Normal [facility] Comprehensive metabolic 2000 panelon 03-05-2024 Albumin [Mass/Vol] 3.9 g/dL Normal 3.9-4.9 [facility] Comment on above: Order Comment: Speci men Type: BLOOD SPECIMENOrdering Facility: [facility] Address: [address] [place] [address] Performed By: #### 2 532-0, 66561-1 ####[facility] LABIA [id number] [place] [address] ALP [Catalytic activity/Vol] 71 U/L Normal 34-123 [facility] Comment on above: Order Comment: Speci men Type: BLOOD SPECIMENOrdering Facility: [facility] Address: [address] [place] [address] Performed By: #### 2 532-0, ####[facility] LABCLIA [id number] [place] [address] ALT [Catalytic activity/Vol] 10 U/L Normal 7-38 [facility] Comment on above: Order Comment: Speci men Type: BLOOD SPECIMENOrdering Facility: [facility] Address: [address] [place] [address] Performed By: #### 2 532-0, ####[facility] LABCLIA [id number] [place] [address] Anion gap [Moles/Vol] 8 mmol/L Normal 8-15 [facility] Comment on above: Order Comment: Speci men Type: BLOOD SPECIMENOrdering Facility: [facility] Address: [address] [place] [address] Performed By: #### 2 532-0, ####[facility] LABCLIA [id number] [place] [address] AST [Catalytic activity/Vol] 18 U/L Normal 13-35 [facility] Comment on above: Order Comment: Speci men Type: BLOOD SPECIMENOrdering Facility: [facility] Address: [address] [place] [address] Performed By: #### 2 532-0, ####[facility] LABCLIA [id number] [place] [address] Bilirubin [Mass/Vol] 0.7 mg/dL Normal 0.2-1.3 [facility] Comment on above: Order Comment: Speci men Type: BLOOD SPECIMENOrdering Facility: [facility] Address: [address] [place] [address] Performed By: #### 2 532-0, 60905-8 ####[facility] LABCLIA [id number] [place] [address] Calcium [Mass/Vol] 9.4 mg/dL Normal 8.5-10.2 [facility] Comment on above: Order Comment: Speci men Type: BLOOD SPECIMENOrdering Facility: [facility] Address: [address] [place] [address] Performed By: #### 2 532-0, 50687-4 ####[facility] LABCLIA [id number] [place] [address] Chloride [Moles/Vol] 106 mmol/L Normal 98-107 [facility] Comment on above: Order Comment: Speci men Type: BLOOD SPECIMENOrdering Facility: [facility] Address: [address] [place] [address] Performed By: #### 2 532-0, 70684-7 ####[facility] LABCLIA [id number] [place] [address] CO2 [Moles/Vol] 26 mmol/L Normal 22-30 [facility] Comment on above: Order Comment: Speci men Type: BLOOD SPECIMENOrdering Facility: [facility] Address: [address] [place] [address] Performed By: #### 2 532-0, ####[facility] LABCLIA [id number] [place] [address] Creatinine [Mass/Vol] 1.14 mg/dL High 0.58-0.96 [facility] Comment on above: Order Comment: Speci men Type: BLOOD SPECIMENOrdering Facility: [facility] Address: [address] [place] [address] Performed By: #### 2 532-0, 96986-7 ####[facility] LABCLIA [id number] [place] [address] Creatinine and Glomerular filtration rate.predicted panel (S/P/Bld) 51 mL/min/1.73m??? Low >=60 [facility] Comment on above: Order Comment: Speci men Type: BLOOD SPECIMENOrdering Facility: [facility] Address: [address] [id number] Result Comment: Miryam mated Glomerular Filtration Rate [...] reflect actual GFR. Performed By: #### 2 532-0, 26480-3 ####[facility] LABCLIA [id number] [place] [address] Glucose [Mass/Vol] 148 mg/dL High 74-99 [facility] Comment on above: Order Comment: Fabricio tapia Type: BLOOD SPECIMENOrdering Facility: [facility] Address: [address] [place] [address] Result Comment: The [place] [employer] (ADA) provides guidance for cutoff values for fasting glucose and random glucose. The ADA defines fasting as no caloric intake for at least 8 hours. Fasting plasma glucose results between 100 to 125 mg/dL indicate increased risk for diabetes (prediabetes).Fasting plasma glucose results greater than or equal to 126 mg/dL meet the criteria for diagnosis of diabetes. In the absence of unequivocal hyperglycemia, results should be confirmed by repeat testing. In a patient with classic symptoms of hyperglycemia or hyperglycemic crisis, random plasma glucose results greater than or equal to 200 mg/dL meet the criteria for diagnosis of diabetes.Reference: Standards of Medical Care in Diabetes 2016, [place] [employer]. Diabetes Care. 2016.39(Suppl 1). Performed By: #### 2 532-0, 64212-9 ####[facility] LABCLIA [id number] [place] [address] Potassium [Moles/Vol] 4.7 mmol/L Normal 3.7-5.1 [facility] Comment on above: Order Comment: Fabricio tapia Type: BLOOD SPECIMENOrdering Facility: [facility] Address: [address] [id number] Performed By: #### 2 532-0, 50396-1 ####[facility] LABCLIA [id number] [place] [address] Protein [Mass/Vol] 7.0 g/dL Normal 6.3-8.0 [facility] Comment on above: Order Comment: Speci men Type: BLOOD SPECIMENOrdering Facility: [facility] Address: [address] [place] [address] Performed By: #### 2 532-0, ####[facility] LABIA [id number] [place] [address] Sodium [Moles/Vol] 140 mmol/L Normal 136-144 [facility] Comment on above: Order Comment: Speci men Type: BLOOD SPECIMENOrdering Facility: [facility] Address: [address] [place] [address] Performed By: #### 2 532-0, ####[facility] LABIA [id number] [place] [address] Urea nitrogen [Mass/Vol] 27 mg/dL High 7-21 [facility] Comment on above: Order Comment: Speci men Type: BLOOD SPECIMENOrdering Facility: [facility] Address: [address] [place] [address] Performed By: #### 2 532-0, ####[facility] LABIA [id number] [place] [address] LDH SerPl-cCncon 03-05-2024 LDH [Catalytic activity/Vol] 207 U/L Normal 135-214 [facility] Comment on above: Order Comment: Speci men Type: BLOOD SPECIMENOrdering Facility: [facility] Address: [address] [place] [address] Performed By: #### 2 532-0, 46596-0 ####[facility] LABIA [id number] [place] [address] CBC W Auto Differential pane l (Bld)on 02-02-2024 Basophils (Bld) [#/Vol] 10*3/uL Normal <0.11 [facility] Comment on above: Order Comment: Speci men Type: BLOOD SPECIMENOrdering Facility: [facility] Address: [address] [place] [address] Performed By: #### 5 7021-8 ####[facility] LABCLIA [id number] [place] [address] Basophils/100 WBC (Bld) 0.2 % Normal [facility] Comment on above: Order Comment: Speci men Type: BLOOD SPECIMENOrdering Facility: [facility] Address: [address] [place] [address] Performed By: #### 5 7021-8 ####[facility] LABCLIA [id number] [place] [address] Differential cell count method Nom (Bld) Auto Normal [facility] Comment on above: Order Comment: Speci men Type: BLOOD SPECIMENOrdering Facility: [facility] Address: [address] [place] [address] Performed By: #### 5 7021-8 ####[facility] LABCLIA [id number] [place] [address] Eosinophils (Bld) [#/Vol] 0.05 10*3/uL Normal <0.46 [facility] Comment on above: Order Comment: Speci men Type: BLOOD SPECIMENOrdering Facility: [facility] Address: [address] [place] [address] Performed By: #### 5 7021-8 ####[facility] LABCLIA [id number] [place] [address] Eosinophils/100 WBC (Bld) 0.9 % Normal [facility] Comment on above: Order Comment: Speci men Type: BLOOD SPECIMENOrdering Facility: [facility] Address: [address] [place] [address] Performed By: #### 5 7021-8 ####[facility] LABCLIA [id number] [place] [address] Erythrocyte distribution width (RBC) [Ratio] 14.0 % Normal 11.5-15.0 [facility] Comment on above: Order Comment: Speci men Type: BLOOD SPECIMENOrdering Facility: [facility] Address: [address] [place] [address] Performed By: #### 5 7021-8 ####[facility] LABCLIA [id number] [place] [address] Hematocrit (Bld) [Volume fraction] 32.6 % Low 36.0-46.0 [facility] Comment on above: Order Comment: Speci men Type: BLOOD SPECIMENOrdering Facility: [facility] Address: [address] [place] [address] Performed By: #### 5 7021-8 ####[facility] LABCLIA [id number] [place] [address] Hemoglobin (Bld) [Mass/Vol] 10.3 g/dL Low 11.5-15.5 [facility] Comment on above: Order Comment: Speci men Type: BLOOD SPECIMENOrdering Facility: [facility] Address: [address] [place] [address] Performed By: #### 5 7021-8 ####[facility] LABCLIA [id number] [place] [address] Immature granulocytes (Bld) [#/Vol] 10*3/uL Normal <0.10 [facility] Comment on above: Order Comment: Speci men Type: BLOOD SPECIMENOrdering Facility: [facility] Address: [address] [place] [address] Performed By: #### 5 7021-8 ####[facility] LABCLIA [id number] [place] [address] Immature granulocytes/100 WBC (Bld) 0.2 % Normal [facility] Comment on above: Order Comment: Speci men Type: BLOOD SPECIMENOrdering Facility: [facility] Address: [address] [place] [address] Performed By: #### 5 7021-8 ####[facility] LABCLIA [id number] [place] [address] Lymphocytes (Bld) [#/Vol] 2.34 10*3/uL Normal 1.00-4.00 [facility] Comment on above: Order Comment: Speci men Type: BLOOD SPECIMENOrdering Facility: [facility] Address: [address] [place] [address] Performed By: #### 5 7021-8 ####[facility] LABCLIA [id number] [place] [address] Lymphocytes/100 WBC (Bld) 42.2 % Normal [facility] Comment on above: Order Comment: Speci men Type: BLOOD SPECIMENOrdering Facility: [facility] Address: [address] [place] [address] Performed By: #### 5 7021-8 ####[facility] LABCLIA [id number] [place] [address] MCH (RBC) [Entitic mass] 31.3 pg Normal 26.0-34.0 [facility] Comment on above: Order Comment: Speci men Type: BLOOD SPECIMENOrdering Facility: [facility] Address: [address] [place] [address] Performed By: #### 5 7021-8 ####[facility] LABCLIA [id number] [place] [address] MCHC (RBC) [Mass/Vol] 31.6 g/dL Normal 30.5-36.0 [facility] Comment on above: Order Comment: Speci men Type: BLOOD SPECIMENOrdering Facility: [facility] Address: [address] [place] [address] Performed By: #### 5 7021-8 ####[facility] LABCLIA [id number] [place] [address] MCV (RBC) [Entitic vol] 99.1 fL Normal 80.0-100.0 C [facility] Comment on above: Order Comment: Speci men Type: BLOOD SPECIMENOrdering Facility: [facility] Address: [address] [place] [address] Performed By: #### 5 7021-8 ####[facility] LABCLIA [id number] [place] [address] Monocytes (Bld) [#/Vol] 0.23 10*3/uL Normal <0.87 [facility] Comment on above: Order Comment: Speci men Type: BLOOD SPECIMENOrdering Facility: [facility] Address: [address] [place] [address] Performed By: #### 5 7021-8 ####[facility] LABCLIA [id number] [place] [address] Monocytes/100 WBC (Bld) 4.2 % Normal [facility] Comment on above: Order Comment: Speci men Type: BLOOD SPECIMENOrdering Facility: [facility] Address: [address] [place] [address] Performed By: #### 5 7021-8 ####[facility] LABCLIA [id number] [place] [address] Neutrophils (Bld) [#/Vol] 2.90 10*3/uL Normal 1.45-7.50 [facility] Comment on above: Order Comment: Speci men Type: BLOOD SPECIMENOrdering Facility: [facility] Address: [address] [place] [address] Performed By: #### 5 7021-8 ####[facility] LABCLIA [id number] [place] [address] Neutrophils/100 WBC (Bld) 52.3 % Normal [facility] Comment on above: Order Comment: Speci men Type: BLOOD SPECIMENOrdering Facility: [facility] Address: [address] [place] [address] Performed By: #### 5 7021-8 ####[facility] LABCLIA [id number] [place] [address] Nucleated RBC (Bld) [#/Vol] 10*3/uL Normal <0.01 [facility] Comment on above: Order Comment: Speci men Type: BLOOD SPECIMENOrdering Facility: [facility] Address: [address] [place] [address] Performed By: #### 5 7021-8 ####[facility] LABCLIA [id number] [place] [address] Nucleated RBC/100 WBC (Bld) [Ratio] 0.0 /100 WBC Normal [facility] Comment on above: Order Comment: Speci men Type: BLOOD SPECIMENOrdering Facility: [facility] Address: [address] [place] [address] Performed By: #### 5 7021-8 ####[facility] LABCLIA [id number] [place] [address] Platelet mean volume (Bld) [Entitic vol] 9.1 fL Normal 9.0-12.7 [facility] Comment on above: Order Comment: Speci men Type: BLOOD SPECIMENOrdering Facility: [facility] Address: [address] [place] [address] Performed By: #### 5 7021-8 ####[facility] LABCLIA [id number] [place] [address] Platelets (Bld) [#/Vol] 148 10*3/uL Low 150-400 [facility] Comment on above: Order Comment: Speci men Type: BLOOD SPECIMENOrdering Facility: [facility] Address: [address] [place] [address] Performed By: #### 5 7021-8 ####[facility] LABCLIA [id number] [place] [address] RBC (Bld) [#/Vol] 3.29 10*6/uL Low 3.90-5.20 [facility] Comment on above: Order Comment: Speci men Type: BLOOD SPECIMENOrdering Facility: [facility] Address: [address] [place] [address] Performed By: #### 5 7021-8 ####[facility] LABCLIA [id number] [place] [address] WBC (Bld) [#/Vol] 5.54 10*3/uL Normal 3.70-11.00 [facility] Comment on above: Order Comment: Speci men Type: BLOOD SPECIMENOrdering Facility: [facility] Address: [address] [place] [address] Performed By: #### 5 7021-8 ####[facility] LABCLIA [id number] [place] [address] CNOVSPon 02-02-2024 CNOVSP Normal [facility] Comprehensive metabolic 2000 panelon 02-02-2024 Albumin [Mass/Vol] 3.8 g/dL Low 3.9-4.9 [facility] Comment on above: Order Comment: Speci men Type: BLOOD SPECIMENOrdering Facility: [facility] Address: [address] [place] [address] Performed By: #### 2 4323-8 ####[facility] LABCLIA [id number] [place] [address] ALP [Catalytic activity/Vol] 71 U/L Normal 34-123 [facility] Comment on above: Order Comment: Speci men Type: BLOOD SPECIMENOrdering Facility: [facility] Address: [address] [place] [address] Performed By: #### 2 4323-8 ####[facility] LABCLIA [id number] [place] [address] ALT [Catalytic activity/Vol] 14 U/L Normal 7-38 [facility] Comment on above: Order Comment: Speci men Type: BLOOD SPECIMENOrdering Facility: [facility] Address: [address] [place] [address] [place] [address] Performed By: #### 2 4323-8 ####[facility] LABCLIA [id number] [place] [address] Anion gap [Moles/Vol] 9 mmol/L Normal 8-15 [facility] Comment on above: Order Comment: Speci men Type: BLOOD SPECIMENOrdering Facility: [facility] Address: [address] [place] [address] Performed By: #### 2 4323-8 ####[facility] LABCLIA [id number] [place] [address] AST [Catalytic activity/Vol] 21 U/L Normal 13-35 [facility] Comment on above: Order Comment: Speci men Type: BLOOD SPECIMENOrdering Facility: [facility] Address: [address] [place] [address] Performed By: #### 2 4323-8 ####[facility] LABCLIA [id number] [place] [address] Bilirubin [Mass/Vol] 0.3 mg/dL Normal 0.2-1.3 [facility] Comment on above: Order Comment: Speci men Type: BLOOD SPECIMENOrdering Facility: [facility] Address: [address] [place] [address] Performed By: #### 2 4323-8 ####[facility] LABCLIA [id number] [place] [address] Calcium [Mass/Vol] 9.5 mg/dL Normal 8.5-10.2 [facility] Comment on above: Order Comment: Speci men Type: BLOOD SPECIMENOrdering Facility: [facility] Address: [address] [place], [place] [address] Performed By: #### 2 4323-8 ####[facility] LABCLIA [id number] [place] [address] Chloride [Moles/Vol] 110 mmol/L High 98-107 [facility] Comment on above: Order Comment: Speci men Type: BLOOD SPECIMENOrdering Facility: [facility] Address: [address] [place] [address] Performed By: #### 2 4323-8 ####[facility] LABCLIA [id number] [place] [address] CO2 [Moles/Vol] 23 mmol/L Normal 22-30 [facility] Comment on above: Order Comment: Speci men Type: BLOOD SPECIMENOrdering Facility: [facility] Address: [address] [place] [address] Performed By: #### 2 4323-8 ####[facility] LABCLIA [id number] [place] [address] Creatinine [Mass/Vol] 1.14 mg/dL High 0.58-0.96 [facility] Comment on above: Order Comment: Speci men Type: BLOOD SPECIMENOrdering Facility: [facility] Address: [address] [place] [address] Performed By: #### 2 4323-8 ####[facility] LABCLIA [id number] [place] [address] Creatinine and Glomerular filtration rate.predicted panel (S/P/Bld) 51 mL/min/1.73m??? Low >=60 [facility] Comment on above: Order Comment: Speci men Type: BLOOD SPECIMENOrdering Facility: [facility] Address: [address] [place] [address] Result Comment: Miryam mated Glomerular Filtration Rate [...] actual GFR. Performed By: #### 2 4323-8 ####[facility] LABCLIA [id number] [place] [address] Glucose [Mass/Vol] 140 mg/dL High 74-99 [facility] Comment on above: Order Comment: Speci men Type: BLOOD SPECIMENOrdering Facility: [facility] Address: [address] [place] [address] Result Comment: The [place] [employer] (ADA) provides guidance for cutoff values for fasting glucose and random glucose. The ADA defines fasting as no caloric intake for at least 8 hours. Fasting plasma glucose results between 100 to 125 mg/dL indicate increased risk for diabetes (prediabetes).Fasting plasma glucose results greater than or equal to 126 mg/dL meet the criteria for diagnosis of diabetes. In the absence of unequivocal hyperglycemia, results should be confirmed by repeat testing. In a patient with classic symptoms of hyperglycemia or hyperglycemic crisis, random plasma glucose results greater than or equal to 200 mg/dL meet the criteria for diagnosis of diabetes.Reference: Standards of Medical Care in Diabetes 2016, [place] [employer]. Diabetes Care. 2016.39(Suppl 1). Performed By: #### 2 4323-8 ####[facility] LABCLIA [id number] [place] [address] Potassium [Moles/Vol] 4.8 mmol/L Normal 3.7-5.1 [facility] Comment on above: Order Comment: Speci men Type: BLOOD SPECIMENOrdering Facility: [facility] Address: [address] [place] [address] Performed By: #### 2 4323-8 ####[facility] LABCLIA [id number] [place] [address] Protein [Mass/Vol] 7.3 g/dL Normal 6.3-8.0 [facility] Comment on above: Order Comment: Speci men Type: BLOOD SPECIMENOrdering Facility: [facility] Address: [address] [place] [address] Performed By: #### 2 4323-8 ####[facility] LABCLIA [id number] [place] [address] Sodium [Moles/Vol] 142 mmol/L Normal 136-144 [facility] Comment on above: Order Comment: Speci men Type: BLOOD SPECIMENOrdering Facility: [facility] Address: [address] [place] [address] Performed By: #### 2 4323-8 ####[facility] LABCLIA [id number] [place] [address] Urea nitrogen [Mass/Vol] 35 mg/dL High 7-21 [facility] Comment on above: Order Comment: Speci men Type: BLOOD SPECIMENOrdering Facility: [facility] Address: [address] [place] [address] Performed By: #### 2 4323-8 ####[facility] LABCLIA [id number] [place] [address] Ferritin SerPl-mCncon 2023 Ferritin [Mass/Vol] 76.8 ng/mL Normal 14.7-205.1 [facility] Comment on above: Order Comment: Speci men Type: BLOOD SPECIMENOrdering Facility: [facility] Address: [address] [place] [address] Performed By: #### 2 132-9, 2284-8, 36911-9, 2276-4 ####[facility] LABCLIA [id number] [address] [address] [place] Folate SerPl-mCncon 02-02-20 24 Folate [Mass/Vol] 9.3 ng/mL Normal >4.7 [facility] Comment on above: Order Comment: Speci men Type: BLOOD SPECIMENOrdering Facility: [facility] Address: [address] [place], [place] [address] Performed By: #### 2 132-9, 2284-8, 86645-0, 2276-4 ####[facility] LABCLIA [id number] [address] [address] [place] Iron and Iron binding capaci ty panelon 02-02-2024 Iron [Mass/Vol] 56 ug/dL Normal 41-186 [facility] Comment on above: Order Comment: Speci men Type: BLOOD SPECIMENOrdering Facility: [facility] Address: [address] [place] [address] Performed By: #### 2 132-9, 2284-8, 70164-8, 6-4 ####[facility] LABCLIA [id number] [address] [address] [place] Iron binding capacity [Mass/Vol] 363 ug/dL Normal 232-386 [facility] Comment on above: Order Comment: Speci men Type: BLOOD SPECIMENOrdering Facility: [facility] Address: [address] [place], [place] [address] Performed By: #### 2 132-9, 2284-8, 22196-7, 2275-4 ####[facility] LABCLIA [id number] [address] [address] [place] Iron/TIBC [Molar ratio] 15.4 % Normal 15.0-57.0 [facility] Comment on above: Order Comment: Speci men Type: BLOOD SPECIMENOrdering Facility: [facility] Address: [address] [place] [address] Performed By: #### 2 132-9, 2284-8, 85928-8, 2275-4 ####[facility] LABCLIA [id number] [address] [address] [place] Vit [facility]12 [facility] 024 Cobalamin (Vitamin B12) [Mass/Vol] 471 pg/mL Normal 232-1245 [facility] Comment on above: Order Comment: Speci men Type: BLOOD SPECIMENOrdering Facility: [facility] Address: [address] [place] [address] Performed By: #### 2 132-9, 2284-8, 73010-9, 2275-4 ####[facility] LABCLIA [id number] [address] [address] [place] Surgical pathology studyon 0 12-18-2023 Surgical pathology study Pathology report.total SEE COMMENT Surgical Pathology Case: [id number] Authorizing Provider: Susanna Graf MD Collected: 12/18/2023 1023 Ordering Location: [facility] [place] Received: 12/18/2023 1254 Pathologist: Abebe Jo MD Specimen: MASTOID CONTENTS LEFT, LEFT MASTOID CONTENTS Path report.final diagnosis SEE COMMENT Left mastoid contents: - Keratinizing squamous epithelium and keratin debris, consistent with cholesteatoma. - Fragments of fibrous tissue with chronic inflammation, multinucleated giant cells, and cholesterol clefts. - Fragments of partially devitalized bone. jkw Laboratory comment By the signature on this report, the individual or group listed as making the Final Interpretation/Diag nosis certifies that they have reviewed this case. 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 The specimen is submitted in toto in 1 cassette, following decalcification. MJR Gross dissection performed at: [facility] Department of Pathology [address] [place], [place] [address] Normal [facility] Comment on above: Order Comment: Pre-o p diagnosis: Cholesteatoma of left ear [H71.92] CBC W Auto Differential pane l (Bld)on 12-15-2023 Basophils (Bld) [#/Vol] 10*3/uL Normal <0.11 [facility] Comment on above: Order Comment: Speci men Type: BLOOD SPECIMENOrdering Facility: External Submitter Address: , , Performed By: #### 5 7021-8 ####[facility] LABCLIA [id number] [place] [address] Basophils/100 WBC (Bld) 0.2 % Normal [facility] Comment on above: Order Comment: Speci men Type: BLOOD SPECIMENOrdering Facility: External Submitter Address: , , Performed By: #### 5 7021-8 ####[facility] LABCLIA [id number] [place] [address] Differential cell count method Nom (Bld) Auto Normal [facility] Comment on above: Order Comment: Speci men Type: BLOOD SPECIMENOrdering Facility: External Submitter Address: , , Performed By: #### 5 7021-8 ####[facility] LABCLIA [id number] [place] [address] Eosinophils (Bld) [#/Vol] 0.04 10*3/uL Normal <0.46 [facility] Comment on above: Order Comment: Speci men Type: BLOOD SPECIMENOrdering Facility: External Submitter Address: , , Performed By: #### 5 7021-8 ####[facility] LABIA [id number] [place] [address] Eosinophils/100 WBC (Bld) 0.8 % Normal [facility] Comment on above: Order Comment: Speci men Type: BLOOD SPECIMENOrdering Facility: External Submitter Address: , , Performed By: #### 5 7021-8 ####[facility] LABIA [id number] [place] [address] Erythrocyte distribution width (RBC) [Ratio] 14.3 % Normal 11.5-15.0 [facility] Comment on above: Order Comment: Speci men Type: BLOOD SPECIMENOrdering Facility: External Submitter Address: , , Performed By: #### 5 7021-8 ####[facility] LABCLIA [id number] [place] [address] Hematocrit (Bld) [Volume fraction] 32.8 % Low 36.0-46.0 [facility] Comment on above: Order Comment: Speci men Type: BLOOD SPECIMENOrdering Facility: External Submitter Address: , , Performed By: #### 5 7021-8 ####[facility] LABCLIA [id number] [place] [address] Hemoglobin (Bld) [Mass/Vol] 10.2 g/dL Low 11.5-15.5 [facility] Comment on above: Order Comment: Speci men Type: BLOOD SPECIMENOrdering Facility: External Submitter Address: , , Performed By: #### 5 7021-8 ####[facility] LABCLIA [id number] [place] [address] Immature granulocytes (Bld) [#/Vol] 10*3/uL Normal <0.10 [facility] Comment on above: Order Comment: Speci men Type: BLOOD SPECIMENOrdering Facility: External Submitter Address: , , Performed By: #### 5 7021-8 ####[facility] LABCLIA [id number] [place] [address] Immature granulocytes/100 WBC (Bld) 0.4 % Normal [facility] Comment on above: Order Comment: Speci men Type: BLOOD SPECIMENOrdering Facility: External Submitter Address: , , Performed By: #### 5 7021-8 ####[facility] LABIA [id number] [place] [address] Lymphocytes (Bld) [#/Vol] 2.22 10*3/uL Normal 1.00-4.00 [facility] Comment on above: Order Comment: Speci men Type: BLOOD SPECIMENOrdering Facility: External Submitter Address: , , Performed By: #### 5 7021-8 ####[facility] LABCLIA [id number] [place] [address] Lymphocytes/100 WBC (Bld) 47.0 % Normal [facility] Comment on above: Order Comment: Speci men Type: BLOOD SPECIMENOrdering Facility: External Submitter Address: , , Performed By: #### 5 7021-8 ####[facility] LABIA [id number] [place] [address] MCH (RBC) [Entitic mass] 31.8 pg Normal 26.0-34.0 [facility] Comment on above: Order Comment: Speci men Type: BLOOD SPECIMENOrdering Facility: External Submitter Address: , , Performed By: #### 5 7021-8 ####[facility] LABCLIA [id number] [place] [address] MCHC (RBC) [Mass/Vol] 31.1 g/dL Normal 30.5-36.0 [facility] Comment on above: Order Comment: Speci men Type: BLOOD SPECIMENOrdering Facility: External Submitter Address: , , Performed By: #### 5 7021-8 ####[facility] LABIA [id number] [place] [address] MCV (RBC) [Entitic vol] 102.2 fL High 80.0-100.0 C [facility] Comment on above: Order Comment: Speci men Type: BLOOD SPECIMENOrdering Facility: External Submitter Address: , , Performed By: #### 5 7021-8 ####[facility] LABCLIA [id number] [place] [address] Monocytes (Bld) [#/Vol] 0.22 10*3/uL Normal <0.87 [facility] Comment on above: Order Comment: Speci men Type: BLOOD SPECIMENOrdering Facility: External Submitter Address: , , Performed By: #### 5 7021-8 ####[facility] LABIA [id number] [place] [address] Monocytes/100 WBC (Bld) 4.7 % Normal C [facility] Comment on above: Order Comment: Speci men Type: BLOOD SPECIMENOrdering Facility: External Submitter Address: , , Performed By: #### 5 7021-8 ####[facility] LABCLIA [id number] [place] [address] Neutrophils (Bld) [#/Vol] 2.21 10*3/uL Normal 1.45-7.50 [facility] Comment on above: Order Comment: Speci men Type: BLOOD SPECIMENOrdering Facility: External Submitter Address: , , Performed By: #### 5 7021-8 ####[facility] LABCLIA [id number] [place] [address] Neutrophils/100 WBC (Bld) 46.9 % Normal [facility] Comment on above: Order Comment: Speci men Type: BLOOD SPECIMENOrdering Facility: External Submitter Address: , , Performed By: #### 5 7021-8 ####[facility] LABCLIA [id number] [place] [address] Nucleated RBC (Bld) [#/Vol] 10*3/uL Normal <0.01 [facility] Comment on above: Order Comment: Speci men Type: BLOOD SPECIMENOrdering Facility: External Submitter Address: , , Performed By: #### 5 7021-8 ####[facility] LABIA [id number] [place] [address] Nucleated RBC/100 WBC (Bld) [Ratio] 0.0 /100 WBC Normal [facility] Comment on above: Order Comment: Speci men Type: BLOOD SPECIMENOrdering Facility: External Submitter Address: , , Performed By: #### 5 7021-8 ####[facility] LABIA [id number] [place] [address] Platelet mean volume (Bld) [Entitic vol] 9.2 fL Normal 9.0-12.7 [facility] Comment on above: Order Comment: Speci men Type: BLOOD SPECIMENOrdering Facility: External Submitter Address: , , Performed By: #### 5 7021-8 ####[facility] LABIA [id number] [place] [address] Platelets (Bld) [#/Vol] 140 10*3/uL Low 150-400 [facility] Comment on above: Order Comment: Speci men Type: BLOOD SPECIMENOrdering Facility: External Submitter Address: , , Performed By: #### 5 7021-8 ####[facility] LABCLIA [id number] [place] [address] RBC (Bld) [#/Vol] 3.21 10*6/uL Low 3.90-5.20 [facility] Comment on above: Order Comment: Speci men Type: BLOOD SPECIMENOrdering Facility: External Submitter Address: , , Performed By: #### 5 7021-8 ####[facility] LABCLIA [id number] [place] [address] WBC (Bld) [#/Vol] 4.72 10*3/uL Normal 3.70-11.00 [facility] Comment on above: Order Comment: Speci men Type: BLOOD SPECIMENOrdering Facility: External Submitter Address: , , Performed By: #### 5 7021-8 ####[facility] LABIA [id number] [place] [address] CNNURSEon 12-15-2023 CNNURSE Normal [facility] Comprehensive metabolic 2000 panelon 12-15-2023 Albumin [Mass/Vol] 4.1 g/dL Normal 3.9-4.9 [facility] Comment on above: Order Comment: Speci men Type: BLOOD SPECIMENOrdering Facility: External Submitter Address: , , Performed By: #### 2 4323-8 ####[facility] LABIA [id number] [place] [address] ALP [Catalytic activity/Vol] 62 U/L Normal 34-123 [facility] Comment on above: Order Comment: Speci men Type: BLOOD SPECIMENOrdering Facility: External Submitter Address: , , Performed By: #### 2 4323-8 ####[facility] LABIA [id number] [place] [address] ALT [Catalytic activity/Vol] 14 U/L Normal 7-38 [facility] Comment on above: Order Comment: Speci men Type: BLOOD SPECIMENOrdering Facility: External Submitter Address: , , Performed By: #### 2 4323-8 ####[facility] LABCLIA [id number] [place] [address] Anion gap [Moles/Vol] 7 mmol/L Low 8-15 [facility] Comment on above: Order Comment: Speci men Type: BLOOD SPECIMENOrdering Facility: External Submitter Address: , , Performed By: #### 2 4323-8 ####[facility] LABCLIA [id number] [place] [address] AST [Catalytic activity/Vol] 21 U/L Normal 13-35 [facility] Comment on above: Order Comment: Speci men Type: BLOOD SPECIMENOrdering Facility: External Submitter Address: , , Performed By: #### 2 4323-8 ####[facility] LABCLIA [id number] [place] [address] Bilirubin [Mass/Vol] 0.4 mg/dL Normal 0.2-1.3 [facility] Comment on above: Order Comment: Speci men Type: BLOOD SPECIMENOrdering Facility: External Submitter Address: , , Performed By: #### 2 4323-8 ####[facility] LABCLIA [id number] [place] [address] Calcium [Mass/Vol] 9.9 mg/dL Normal 8.5-10.2 [facility] Comment on above: Order Comment: Speci men Type: BLOOD SPECIMENOrdering Facility: External Submitter Address: , , Performed By: #### 2 4323-8 ####[facility] LABCLIA [id number] [place] [address] Chloride [Moles/Vol] 111 mmol/L High 98-107 [facility] Comment on above: Order Comment: Speci men Type: BLOOD SPECIMENOrdering Facility: External Submitter Address: , , Performed By: #### 2 4323-8 ####[facility] LABCLIA [id number] [place] [address] CO2 [Moles/Vol] 25 mmol/L Normal 22-30 [facility] Comment on above: Order Comment: Speci men Type: BLOOD SPECIMENOrdering Facility: External Submitter Address: , , Performed By: #### 2 4323-8 ####[facility] LABCLIA [id number] [place] [address] Creatinine [Mass/Vol] 1.23 mg/dL High 0.58-0.96 [facility] Comment on above: Order Comment: Speci men Type: BLOOD SPECIMENOrdering Facility: External Submitter Address: , , Performed By: #### 2 4323-8 ####[facility] LABCLIA [id number] [place] [address] Creatinine and Glomerular filtration rate.predicted panel (S/P/Bld) 46 mL/min/1.73m??? Low >=60 [facility] Comment on above: Order Comment: Speci men Type: BLOOD SPECIMENOrdering Facility: External Submitter Address: , , Result Comment: Miryam mated Glomerular Filtration Rate [...] actual GFR. Performed By: #### 2 4323-8 ####[facility] LABIA [id number] [place] [address] Glucose [Mass/Vol] 118 mg/dL High 74-99 [facility] Comment on above: Order Comment: Speci men Type: BLOOD SPECIMENOrdering Facility: External Submitter Address: , , Result Comment: The [place] [employer] (ADA) provides guidance for cutoff values for fasting glucose and random glucose. The ADA defines fasting as no caloric intake for at least 8 hours. Fasting plasma glucose results between 100 to 125 mg/dL indicate increased risk for diabetes (prediabetes).Fasting plasma glucose results greater than or equal to 126 mg/dL meet the criteria for diagnosis of diabetes. In the absence of unequivocal hyperglycemia, results should be confirmed by repeat testing. In a patient with classic symptoms of hyperglycemia or hyperglycemic crisis, random plasma glucose results greater than or equal to 200 mg/dL meet the criteria for diagnosis of diabetes.Reference: Standards of Medical Care in Diabetes 2016, [place] [employer]. Diabetes Care. 2016.39(Suppl 1). Performed By: #### 2 4323-8 ####[facility] LABCLIA [id number] [place] [address] Potassium [Moles/Vol] 5.1 mmol/L Normal 3.7-5.1 [facility] Comment on above: Order Comment: Speci men Type: BLOOD SPECIMENOrdering Facility: External Submitter Address: , , Performed By: #### 2 4323-8 ####[facility] LABCLIA [id number] [place] [address] Protein [Mass/Vol] 7.9 g/dL Normal 6.3-8.0 [facility] Comment on above: Order Comment: Speci men Type: BLOOD SPECIMENOrdering Facility: External Submitter Address: , , Performed By: #### 2 432-8 ####[facility] LABCLIA [id number] [place] [address] Sodium [Moles/Vol] 143 mmol/L Normal 136-144 [facility] Comment on above: Order Comment: Speci men Type: BLOOD SPECIMENOrdering Facility: External Submitter Address: , , Performed By: #### 2 4323-8 ####[facility] LABCLIA [id number] [place] [address] Urea nitrogen [Mass/Vol] 34 mg/dL High 7-21 [facility] Comment on above: Order Comment: Speci men Type: BLOOD SPECIMENOrdering Facility: External Submitter Address: , , Performed By: #### 2 432-8 ####[facility] LABCLIA [id number] [place] [address] PT panel Coag (PPP)on 2023 INR Coag (PPP) [Relative time] 1.0 {INR} Normal 0.9-1.3 [facility] Comment on above: Order Comment: Fabricio tapia Type: BLOOD SPECIMENOrdering Facility: External Submitter Address: , , Result Comment: Jennifer min K Antagonist (VKA) Therapeutic Range: INR 2 to 3 (Target INR of 2.5)Note: For patients treated with VKA drugs, such as warfarin, the [place] [employer] 2012 Guideline recommends a therapeutic INR range of 2 to 3 (target INR of 2.5). This recommendation includes high-risk patients with antiphospholipid syndrome with previous arterial or venous thromboembolism, current-generation mechanical or bioprosthetic aortic heart valve replacement.Note: Patients with mechanical aortic valve replacement and additional risk factors for thromboembolic events (atrial fibrillation, previous thromboembolism, LV dysfunction, hypercoagulable conditions) or an older generation mechanical AVR (i.e., ball in-Cage) or any mechanical MVR should have a INR therapeutic range of 2.5 to 3.5 (target INR of 3).Epifanio GH, et al. Chest 2012, 141:7S-47SNishimura RA, et al. [facility] 2017, 70: 252-289 Performed By: #### 1 4979-9, 99007-2 ####[facility] LABIA [id number] [address] [address] [place] PT Coag (PPP) [Time] 10.8 s Normal 9.7-13.0 [facility] Comment on above: Order Comment: Fabricio tapia Type: BLOOD SPECIMENOrdering Facility: External Submitter Address: , , Performed By: #### 1 4979-9, 63900-3 ####[facility] LABIA [id number] [address] [address] [place] TYPE + SCREENon 12-15-2023 ABO A Normal [facility] Comment on above: Order Comment: Fabricio tapia Type: BLOOD SPECIMENOrdering Facility: External Submitter Address: , , Performed By: #### T SCR ####[facility]CL[facility] [id number] [address] HISTORICAL AB SCR STATUS Negative Normal [facility] Comment on above: Order Comment: Speci men Type: BLOOD SPECIMENOrdering Facility: External Submitter Address: , , Performed By: #### T SCR ####[facility]ANKCL[facility] [id number] [address] Rh Nom (Bld) Positive Normal [facility] Comment on above: Order Comment: Speci men Type: BLOOD SPECIMENOrdering Facility: External Submitter Address: , , Performed By: #### T SCR ####[facility]ANK[facility] [id number] [address] TYPE AND SCREEN EXPIRATION 12/18/2023 23:59 Normal [facility] Comment on above: Order Comment: Speci men Type: BLOOD SPECIMENOrdering Facility: External Submitter Address: , , Performed By: #### T SCR ####[facility] [id number] [address] aPTT PPPon 12-15-2023 aPTT Coag (PPP) [Time] 28.8 s Normal 23.0-32.4 [facility] Comment on above: Order Comment: Speci men Type: BLOOD SPECIMENOrdering Facility: External Submitter Address: , , Result Comment: Fer en Plasma Aliquot Performed By: #### 1 4979-9, 05034-4 ####[facility] LABCLIA [id number] [address] [facility] CNPNon 11-28-2023 CNPN Normal [facility] CBC W Auto Differential pane l (Bld)on 11-24-2023 Basophils (Bld) [#/Vol] 10*3/uL Normal <0.11 C [facility] Comment on above: Order Comment: Speci men Type: BLOOD SPECIMENOrdering Facility: [facility] Address: [address] [place] [address] Performed By: #### 5 7021-8 ####[facility] LABCLIA [id number] [place] [address] Basophils/100 WBC (Bld) 0.4 % Normal [facility] Comment on above: Order Comment: Speci men Type: BLOOD SPECIMENOrdering Facility: [facility] Address: [address] [place] [address] Performed By: #### 5 7021-8 ####[facility] LABCLIA [id number] [place] [address] Differential cell count method Nom (Bld) Auto Normal [facility] Comment on above: Order Comment: Speci men Type: BLOOD SPECIMENOrdering Facility: [facility] Address: [address] [place] [address] Performed By: #### 5 7021-8 ####[facility] LABCLIA [id number] [place] [address] Eosinophils (Bld) [#/Vol] 0.04 10*3/uL Normal <0.46 [facility] Comment on above: Order Comment: Speci men Type: BLOOD SPECIMENOrdering Facility: [facility] Address: [address] [place] [address] Performed By: #### 5 7021-8 ####[facility] LABCLIA [id number] [place] [address] Eosinophils/100 WBC (Bld) 0.8 % Normal [facility] Comment on above: Order Comment: Speci men Type: BLOOD SPECIMENOrdering Facility: [facility] Address: [address] [place] [address] Performed By: #### 5 7021-8 ####[facility] LABCLIA [id number] [place] [address] Erythrocyte distribution width (RBC) [Ratio] 14.1 % Normal 11.5-15.0 [facility] Comment on above: Order Comment: Speci men Type: BLOOD SPECIMENOrdering Facility: [facility] Address: [address] [place] [address] Performed By: #### 5 7021-8 ####[facility] LABCLIA [id number] [place] [address] Hematocrit (Bld) [Volume fraction] 32.3 % Low 36.0-46.0 [facility] Comment on above: Order Comment: Speci men Type: BLOOD SPECIMENOrdering Facility: [facility] Address: [address] [place] [address] Performed By: #### 5 7021-8 ####[facility] LABCLIA [id number] [place] [address] Hemoglobin (Bld) [Mass/Vol] 10.1 g/dL Low 11.5-15.5 [facility] Comment on above: Order Comment: Speci men Type: BLOOD SPECIMENOrdering Facility: [facility] Address: [address] [place] [address] Performed By: #### 5 7021-8 ####[facility] LABCLIA [id number] [place] [address] Immature granulocytes (Bld) [#/Vol] 10*3/uL Normal <0.10 [facility] Comment on above: Order Comment: Speci men Type: BLOOD SPECIMENOrdering Facility: [facility] Address: [address] [place] [address] Performed By: #### 5 7021-8 ####[facility] LABCLIA [id number] [place] [address] Immature granulocytes/100 WBC (Bld) 0.4 % Normal [facility] Comment on above: Order Comment: Speci men Type: BLOOD SPECIMENOrdering Facility: [facility] Address: [address] [place] [address] Performed By: #### 5 7021-8 ####[facility] LABCLIA [id number] [place] [address] Lymphocytes (Bld) [#/Vol] 2.39 10*3/uL Normal 1.00-4.00 [facility] Comment on above: Order Comment: Speci men Type: BLOOD SPECIMENOrdering Facility: [facility] Address: [address] [place] [address] Performed By: #### 5 7021-8 ####[facility] LABCLIA [id number] [place] [address] Lymphocytes/100 WBC (Bld) 45.4 % Normal [facility] Comment on above: Order Comment: Speci men Type: BLOOD SPECIMENOrdering Facility: [facility] Address: [address] [place] [address] Performed By: #### 5 7021-8 ####[facility] LABIA [id number] [place] [address] MCH (RBC) [Entitic mass] 31.6 pg Normal 26.0-34.0 [facility] Comment on above: Order Comment: Speci men Type: BLOOD SPECIMENOrdering Facility: [facility] Address: [address] [place] [address] Performed By: #### 5 7021-8 ####[facility] LABCLIA [id number] [place] [address] MCHC (RBC) [Mass/Vol] 31.3 g/dL Normal 30.5-36.0 [facility] Comment on above: Order Comment: Speci men Type: BLOOD SPECIMENOrdering Facility: [facility] Address: [address] [place] [address] Performed By: #### 5 7021-8 ####[facility] LABIA [id number] [place] [address] MCV (RBC) [Entitic vol] 100.9 fL High 80.0-100.0 C [facility] Comment on above: Order Comment: Speci men Type: BLOOD SPECIMENOrdering Facility: [facility] Address: [address] [place] [address] Performed By: #### 5 7021-8 ####[facility] LABCLIA [id number] [place] [address] Monocytes (Bld) [#/Vol] 0.31 10*3/uL Normal <0.87 [facility] Comment on above: Order Comment: Speci men Type: BLOOD SPECIMENOrdering Facility: [facility] Address: [address] [place] [address] Performed By: #### 5 7021-8 ####[facility] LABCLIA [id number] [place] [address] Monocytes/100 WBC (Bld) 5.9 % Normal [facility] Comment on above: Order Comment: Speci men Type: BLOOD SPECIMENOrdering Facility: [facility] Address: [address] [place] [address] Performed By: #### 5 7021-8 ####[facility] LABCLIA [id number] [place] [address] Neutrophils (Bld) [#/Vol] 2.49 10*3/uL Normal 1.45-7.50 [facility] Comment on above: Order Comment: Speci men Type: BLOOD SPECIMENOrdering Facility: [facility] Address: [address] [place] [address] Performed By: #### 5 7021-8 ####[facility] LABCLIA [id number] [place] [address] Neutrophils/100 WBC (Bld) 47.1 % Normal [facility] Comment on above: Order Comment: Speci men Type: BLOOD SPECIMENOrdering Facility: [facility] Address: [address] [place] [address] Performed By: #### 5 7021-8 ####[facility] LABCLIA [id number] [place] [address] Nucleated RBC (Bld) [#/Vol] 10*3/uL Normal <0.01 [facility] Comment on above: Order Comment: Speci men Type: BLOOD SPECIMENOrdering Facility: [facility] Address: [address] [place] [address] Performed By: #### 5 7021-8 ####[facility] LABCLIA [id number] [place] [address] Nucleated RBC/100 WBC (Bld) [Ratio] 0.0 /100 WBC Normal [facility] Comment on above: Order Comment: Speci men Type: BLOOD SPECIMENOrdering Facility: [facility] Address: [address] [place] [address] Performed By: #### 5 7021-8 ####[facility] LABCLIA [id number] [place] [address] Platelet mean volume (Bld) [Entitic vol] 9.1 fL Normal 9.0-12.7 [facility] Comment on above: Order Comment: Speci men Type: BLOOD SPECIMENOrdering Facility: [facility] Address: [address] [place] [address] Performed By: #### 5 7021-8 ####[facility] LABCLIA [id number] [place] [address] Platelets (Bld) [#/Vol] 134 10*3/uL Low 150-400 [facility] Comment on above: Order Comment: Speci men Type: BLOOD SPECIMENOrdering Facility: [facility] Address: [address] [place] [address] Performed By: #### 5 7021-8 ####[facility] LABCLIA [id number] [place] [address] RBC (Bld) [#/Vol] 3.20 10*6/uL Low 3.90-5.20 [facility] Comment on above: Order Comment: Speci men Type: BLOOD SPECIMENOrdering Facility: [facility] Address: [address] [place], [place] [address] Performed By: #### 5 7021-8 ####[facility] LABCLIA [id number] [place] [address] WBC (Bld) [#/Vol] 5.27 10*3/uL Normal 3.70-11.00 [facility] Comment on above: Order Comment: Speci men Type: BLOOD SPECIMENOrdering Facility: [facility] Address: [address] [place] [address] Performed By: #### 5 7021-8 ####[facility] LABCLIA [id number] [place] [address] CNOVSPon 11-24-2023 CNOVSP Normal [facility] metabolic 2000 panelon 11-24-2023 Albumin [Mass/Vol] 3.8 g/dL Low 3.9-4.9 [facility] Comment on above: Order Comment: Speci men Type: BLOOD SPECIMENOrdering Facility: [facility] Address: [address] [place] [address] Performed By: #### 2 4323-8 ####[facility] LABCLIA [id number] [place] [address] ALP [Catalytic activity/Vol] 57 U/L Normal 34-123 [facility] Comment on above: Order Comment: Speci men Type: BLOOD SPECIMENOrdering Facility: [facility] Address: [address] [place] [address] Performed By: #### 2 4323-8 ####[facility] LABCLIA [id number] [place] [address] ALT [Catalytic activity/Vol] 15 U/L Normal 7-38 [facility] Comment on above: Order Comment: Speci men Type: BLOOD SPECIMENOrdering Facility: [facility] Address: [address] [place] [address] Performed By: #### 2 4323-8 ####[facility] LABCLIA [id number] [place] [address] Anion gap [Moles/Vol] 8 mmol/L Low 9-18 [facility] Comment on above: Order Comment: Speci men Type: BLOOD SPECIMENOrdering Facility: [facility] Address: [address] [place] [address] Performed By: #### 2 4323-8 ####[facility] LABCLIA [id number] [place] [address] AST [Catalytic activity/Vol] 24 U/L Normal 13-35 [facility] Comment on above: Order Comment: Speci men Type: BLOOD SPECIMENOrdering Facility: [facility] Address: [address] [place] [address] Performed By: #### 2 4323-8 ####[facility] LABCLIA [id number] [place] [address] Bilirubin [Mass/Vol] 0.4 mg/dL Normal 0.2-1.3 [facility] Comment on above: Order Comment: Speci men Type: BLOOD SPECIMENOrdering Facility: [facility] Address: [address] [place] [address] Performed By: #### 2 4323-8 ####[facility] LABCLIA [id number] [place] [address] Calcium [Mass/Vol] 9.8 mg/dL Normal 8.5-10.2 [facility] Comment on above: Order Comment: Speci men Type: BLOOD SPECIMENOrdering Facility: [facility] Address: [address] [place] [address] Performed By: #### 2 4323-8 ####[facility] LABCLIA [id number] [place] [address] Chloride [Moles/Vol] 108 mmol/L High 97-105 [facility] Comment on above: Order Comment: Speci men Type: BLOOD SPECIMENOrdering Facility: [facility] Address: [address] [place] [address] Performed By: #### 2 4323-8 ####[facility] LABCLIA [id number] [place] [address] CO2 [Moles/Vol] 24 mmol/L Normal 22-30 [facility] Comment on above: Order Comment: Speci men Type: BLOOD SPECIMENOrdering Facility: [facility] Address: [address] [place] [address] Performed By: #### 2 4323-8 ####[facility] LABCLIA [id number] [place] [address] Creatinine [Mass/Vol] 1.36 mg/dL High 0.58-0.96 [facility] Comment on above: Order Comment: Speci men Type: BLOOD SPECIMENOrdering Facility: [facility] Address: [address] [place] [address] Performed By: #### 2 4323-8 ####[facility] LABIA [id number] [place] [address] Creatinine and Glomerular filtration rate.predicted panel (S/P/Bld) 41 mL/min/1.73m??? Low >=60 [facility] Comment on above: Order Comment: Speci men Type: BLOOD SPECIMENOrdering Facility: [facility] Address: [address] [place] [address] Result Comment: Miryam mated Glomerular Filtration Rate [...] actual GFR. Performed By: #### 2 4323-8 ####[facility] LABCLIA [id number] [place] [address] Glucose [Mass/Vol] 113 mg/dL High 74-99 [facility] Comment on above: Order Comment: Speci men Type: BLOOD SPECIMENOrdering Facility: [facility] Address: [facility] [place] [id number] Result Comment: The [place] [employer] (ADA) provides guidance for cutoff values for fasting glucose and random glucose. The ADA defines fasting as no caloric intake for at least 8 hours. Fasting plasma glucose results between 100 to 125 mg/dL indicate increased risk for diabetes (prediabetes).Fasting plasma glucose results greater than or equal to 126 mg/dL meet the criteria for diagnosis of diabetes. In the absence of unequivocal hyperglycemia, results should be confirmed by repeat testing. In a patient with classic symptoms of hyperglycemia or hyperglycemic crisis, random plasma glucose results greater than or equal to 200 mg/dL meet the criteria for diagnosis of diabetes.Reference: Standards of Medical Care in Diabetes 2016, [place] [employer]. Diabetes Care. 2016.39(Suppl 1). Performed By: #### 2 4323-8 ####[facility] LABCLIA [id number] [place] [address] Potassium [Moles/Vol] 5.8 mmol/L High 3.7-5.1 [facility] Comment on above: Order Comment: Speci men Type: BLOOD SPECIMENOrdering Facility: [facility] Address: [address] [place] [address] Performed By: #### 2 4323-8 ####[facility] LABCLIA [id number] [place] [address] Protein [Mass/Vol] 7.6 g/dL Normal 6.3-8.0 [facility] Comment on above: Order Comment: Speci men Type: BLOOD SPECIMENOrdering Facility: [facility] Address: [address] [place] [id number] Performed By: #### 2 4323-8 ####[facility] LABCLIA [id number] [place] [address] Sodium [Moles/Vol] 140 mmol/L Normal 136-144 [facility] Comment on above: Order Comment: Speci men Type: BLOOD SPECIMENOrdering Facility: [facility] Address: [address] [place] [id number] Performed By: #### 2 4323-8 ####[facility] CARE[facility] ROBERTO [facility] LABCLIA [id number] [place] [address] Urea nitrogen [Mass/Vol] 43 mg/dL High 7-21 [facility] Comment on above: Order Comment: Speci men Type: BLOOD SPECIMENOrdering Facility: [facility] Address: [address] [place] [address] Performed By: #### 2 4323-8 ####CHEVYMAJOSE ROBERTO [facility] LABCLIA [id number] [place] [address] Ferritin [facility]Pl[facility] Ferritin [Mass/Vol] 56.3 ng/mL Normal 14.7-205.1 [facility] Comment on above: Order Comment: Speci men Type: BLOOD SPECIMENOrdering Facility: [facility] Address: [address] [place] [address] Performed By: #### 5 0190-8, 2131-9, 2275-4, 8 ####[facility] LABIA [id number] [place] [address] [place] Folate SerPl-mCncon 11-24-19 Folate [Mass/Vol] 7.7 ng/mL Normal >4.7 [facility] Comment on above: Order Comment: Speci men Type: BLOOD SPECIMENOrdering Facility: [facility] Address: [address] [place] [address] Performed By: #### 5 0190-8, 2131-9, 2275-4, 8 ####[facility] [id number] [place] [address] [place] Iron and Iron binding capaci ty panelon 11-24-2023 Iron [Mass/Vol] 76 ug/dL Normal 41-186 [facility] Comment on above: Order Comment: Speci men Type: BLOOD SPECIMENOrdering Facility: [facility] Address: [address] [place] [address] Performed By: #### 5 0190-8, 9, 4, 2284-02 ####[facility] LABCLIA [id number] [place] [id number] [place] Iron binding capacity [Mass/Vol] 361 ug/dL Normal 232-386 [facility] Comment on above: Order Comment: Speci men Type: BLOOD SPECIMENOrdering Facility: [facility] Address: [address] [place] [address] Performed By: #### 5 0190-8, 9, 4, 2284-02 ####[facility] LABIA [id number] [place] [address] [place] Iron/TIBC [Molar ratio] 21.1 % Normal 15.0-57.0 [facility] Comment on above: Order Comment: Speci men Type: BLOOD SPECIMENOrdering Facility: [facility] Address: [address] [place] [address] Performed By: #### 5 0190-8, 9, 2275-10, 2284-02 ####[facility] LABIA [id number] [place] [address] [place] Vit [facility]12 [facility] 024 Cobalamin (Vitamin B12) [Mass/Vol] 427 pg/mL Normal 232-1245 [facility] Comment on above: Order Comment: Speci men Type: BLOOD SPECIMENOrdering Facility: [facility] Address: [address] [place] [address] Performed By: #### 5 0190-8, 9, 2275-10, 2284-02 ####[facility] LABIA [id number] [place] [address] [place] CT IAC WO IV CONTRASTon 05-0 CT IAC WO IV CONTRAST Interpreted By: Tiffani Villagomez, STUDY: CT IAC WO IV CONTRAST; 11/14/2023 3:03 pm INDICATION: Signs/Symptoms:chol esteatoma. COMPARISON: None. ACCESSION NUMBER(S): [id number] ORDERING CLINICIAN: SUSANNA GRAF TECHNIQUE: Noncontrast CT scan of the temporal bone was performed with 0.67 mm slice thickness acquisition. The images were reformatted in coronal and axial planes. FINDINGS: Right Temporal Bone: The mastoid air cells are well developed. There are few nonspecific opacify mastoid air cells on the right. No evidence of osseous erosion. The external auditory canal, scutum and tympanic membrane are unremarkable. The middle ear is clear. The ossicles are anatomic. Cochlea, vestibule and semicircular canals are unremarkable. Vestibular aqueduct is not enlarged. Course of the carotid canal, jugular bulb and facial nerve are anatomic. Tegmen tympani, tegmen mastoideum and arcuate eminence are intact. Left Temporal Bone: The mastoid air cells are well developed. There are few partially opacify air cells at the mastoid tip. There is blunting/erosion of the scutum with a soft tissue density within Prussak's space measuring approximately 0.3 cm. The long limb of the incus is not visualized. The middle ear otherwise appears predominantly clear. Cochlea and vestibule are unremarkable. There is osseous thinning versus possible dehiscence along the lateral semi circular canal (image 168 of 287 series 201 and image 87 of 169 series 203). The semi circular canals are otherwise unremarkable. Vestibular aqueduct is not enlarged. Course of the carotid canal, jugular vein and facial nerve are anatomic. Tegmen tympani and tegmen mastoideum appear intact. Paranasal sinuses: There is thickening and sclerosis of the visualized right maxillary sinus suggesting a chronic infectious/inflamma tory process. There are presumed postsurgical changes of antrostomy and uncinectomy of the right maxillary sinus. There is mild mucosal thickening within the right maxillary sinus. Along the anterior wall of the right maxillary sinus there is a partially ossified lesion with surrounding calcification which may represent a retention cyst polyp. IMPRESSION: Right temporal bone: The mastoid air cells and middle ear predominantly clear. There are few nonspecific opacify mastoid air cells on the right. Left temporal bone: There is blunting/erosion of the scutum with an opacity involving Prussak's space suggestive of a cholesteatoma. The long limb of the incus on the left is not visualized. There is osseous thinning versus possible dehiscence along the lateral semi circular canal. Few partially opacify air cells at the mastoid tip. MACRO: None Signed by: Tiffani Villagomez 11/14/2023 3:18 PM Dictation workstation: [id number] [facility] CT Internal auditory canal W O contraston 11-14-2023 Right temporal bone: The mastoid air cells and middle ear predominantly clear. There are few nonspecific opacify mastoid air cells on the right. Left temporal bone: There is blunting/erosion of the scutum with an opacity involving Prussak's space suggestive of a cholesteatoma. The long limb of the incus on the left is not visualized. There is osseous thinning versus possible dehiscence along the lateral semi circular canal. Few partially opacify air cells at the mastoid tip. MACRO: None Signed by: Tiffani Villagomez 11/14/2023 3:18 PM Dictation workstation: [id number] Interpreted By: Tiffani Villagomez, STUDY: CT IAC WO IV CONTRAST; 11/14/2023 3:03 pm INDICATION: Signs/Symptoms:chol esteatoma. COMPARISON: None. ACCESSION NUMBER(S): [id number] ORDERING CLINICIAN: SUSANNA GRAF TECHNIQUE: Noncontrast CT scan of the temporal bone was performed with 0.67 mm slice thickness acquisition. The images were reformatted in coronal and axial planes. FINDINGS: Right Temporal Bone: The mastoid air cells are well developed. There are few nonspecific opacify mastoid air cells on the right. No evidence of osseous erosion. The external auditory canal, scutum and tympanic membrane are unremarkable. The middle ear is clear. The ossicles are anatomic. Cochlea, vestibule and semicircular canals are unremarkable. Vestibular aqueduct is not enlarged. Course of the carotid canal, jugular bulb and facial nerve are anatomic. Tegmen tympani, tegmen mastoideum and arcuate eminence are intact. Left Temporal Bone: The mastoid air cells are well developed. There are few partially opacify air cells at the mastoid tip. There is blunting/erosion of the scutum with a soft tissue density within Prussak's space measuring approximately 0.3 cm. The long limb of the incus is not visualized. The middle ear otherwise appears predominantly clear. Cochlea and vestibule are unremarkable. There is osseous thinning versus possible dehiscence along the lateral semi circular canal (image 168 of 287 series 201 and image 87 of 169 series 203). The semi circular canals are otherwise unremarkable. Vestibular aqueduct is not enlarged. Course of the carotid canal, jugular vein and facial nerve are anatomic. Tegmen tympani and tegmen mastoideum appear intact. Paranasal sinuses: There is thickening and sclerosis of the visualized right maxillary sinus suggesting a chronic infectious/inflamma tory process. There are presumed postsurgical changes of antrostomy and uncinectomy of the right maxillary sinus. There is mild mucosal thickening within the right maxillary sinus. Along the anterior wall of the right maxillary sinus there is a partially ossified lesion with surrounding calcification which may represent a retention cyst polyp. [facility] MMODAL Tiffani Villagomez MD - 11/14/2023 Interpreted By: Tiffani Villagomez, STUDY: CT IAC WO IV CONTRAST; 11/14/2023 3:03 pm INDICATION: Signs/Symptoms:chol esteatoma. COMPARISON: None. ACCESSION NUMBER(S): [id number] ORDERING CLINICIAN: SUSANNA GRAF TECHNIQUE: Noncontrast CT scan of the temporal bone was performed with 0.67 mm slice thickness acquisition. The images were reformatted in coronal and axial planes. FINDINGS: Right Temporal Bone: The mastoid air cells are well developed. There are few nonspecific opacify mastoid air cells on the right. No evidence of osseous erosion. The external auditory canal, scutum and tympanic membrane are unremarkable. The middle ear is clear. The ossicles are anatomic. Cochlea, vestibule and semicircular canals are unremarkable. Vestibular aqueduct is not enlarged. Course of the carotid canal, jugular bulb and facial nerve are anatomic. Tegmen tympani, tegmen mastoideum and arcuate eminence are intact. Left Temporal Bone: The mastoid air cells are well developed. There are few partially opacify air cells at the mastoid tip. There is blunting/erosion of the scutum with a soft tissue density within Prussak's space measuring approximately 0.3 cm. The long limb of the incus is not visualized. The middle ear otherwise appears predominantly clear. Cochlea and vestibule are unremarkable. There is osseous thinning versus possible dehiscence along the lateral semi circular canal (image 168 of 287 series 201 and image 87 of 169 series 203). The semi circular canals are otherwise unremarkable. Vestibular aqueduct is not enlarged. Course of the carotid canal, jugular vein and facial nerve are anatomic. Tegmen tympani and tegmen mastoideum appear intact. Paranasal sinuses: There is thickening and sclerosis of the visualized right maxillary sinus suggesting a chronic infectious/inflamma tory process. There are presumed postsurgical changes of antrostomy and uncinectomy of the right maxillary sinus. There is mild mucosal thickening within the right maxillary sinus. Along the anterior wall of the right maxillary sinus there is a partially ossified lesion with surrounding calcification which may represent a retention cyst polyp. IMPRESSION: Right temporal bone: The mastoid air cells and middle ear predominantly clear. There are few nonspecific opacify mastoid air cells on the right. Left temporal bone: There is blunting/erosion of the scutum with an opacity involving Prussak's space suggestive of a cholesteatoma. The long limb of the incus on the left is not visualized. There is osseous thinning versus possible dehiscence along the lateral semi circular canal. Few partially opacify air cells at the mastoid tip. MACRO: None Signed by: Tiffani Villagomez 11/14/2023 3:18 PM Dictation workstation: [id number] [facility] Work Phone: Radiology Study observation (narrative) [facility] Work Phone: CT Internal auditory canal W O contrastOrdered By: Tiffani Villagomez on 11-14-2023 [facility] Work Phone: CBC W Auto Differential pane l (Bld)on 10-13-2023 Basophils (Bld) [#/Vol] 10*3/uL Normal <0.11 C [facility] Comment on above: Order Comment: Speci men Type: BLOOD SPECIMENOrdering Facility: [facility] Address: [address] [place] [address] Performed By: #### 5 7021-8 ####[facility] LABCLIA [id number] [place] [address] Basophils/100 WBC (Bld) 0.2 % Normal C [facility] Comment on above: Order Comment: Speci men Type: BLOOD SPECIMENOrdering Facility: [facility] Address: [address] [place] [address] Performed By: #### 5 7021-8 ####[facility] LABCLIA [id number] [place] [address] Differential cell count method Nom (Bld) Auto Normal [facility] Comment on above: Order Comment: Speci men Type: BLOOD SPECIMENOrdering Facility: [facility] Address: [address] [place] [address] Performed By: #### 5 7021-8 ####[facility] LABCLIA [id number] [place] [address] Eosinophils (Bld) [#/Vol] 0.06 10*3/uL Normal <0.46 [facility] Comment on above: Order Comment: Speci men Type: BLOOD SPECIMENOrdering Facility: [facility] Address: [address] [place] [address] Performed By: #### 5 7021-8 ####[facility] LABCLIA [id number] [place] [address] Eosinophils/100 WBC (Bld) 1.0 % Normal [facility] Comment on above: Order Comment: Speci men Type: BLOOD SPECIMENOrdering Facility: [facility] Address: [address] [place] [address] Performed By: #### 5 7021-8 ####[facility] LABCLIA [id number] [place] [address] Erythrocyte distribution width (RBC) [Ratio] 14.3 % Normal 11.5-15.0 [facility] Comment on above: Order Comment: Speci men Type: BLOOD SPECIMENOrdering Facility: [facility] Address: [address] [place] [address] Performed By: #### 5 7021-8 ####[facility] LABCLIA [id number] [place] [address] Hematocrit (Bld) [Volume fraction] 34.5 % Low 36.0-46.0 [facility] Comment on above: Order Comment: Speci men Type: BLOOD SPECIMENOrdering Facility: [facility] Address: [address] [place] [address] Performed By: #### 5 7021-8 ####[facility] LABCLIA [id number] [place] [address] Hemoglobin (Bld) [Mass/Vol] 11.0 g/dL Low 11.5-15.5 [facility] Comment on above: Order Comment: Speci men Type: BLOOD SPECIMENOrdering Facility: [facility] Address: [address] [place] [address] Performed By: #### 5 7021-8 ####[facility] LABCLIA [id number] [place] [address] Immature granulocytes (Bld) [#/Vol] 10*3/uL Normal <0.10 [facility] Comment on above: Order Comment: Speci men Type: BLOOD SPECIMENOrdering Facility: [facility] Address: [address] [place] [address] Performed By: #### 5 7021-8 ####[facility] LABCLIA [id number] [place] [address] Immature granulocytes/100 WBC (Bld) 0.2 % Normal [facility] Comment on above: Order Comment: Speci men Type: BLOOD SPECIMENOrdering Facility: [facility] Address: [address] [place] [address] Performed By: #### 5 7021-8 ####[facility] LABIA [id number] [place] [address] Lymphocytes (Bld) [#/Vol] 2.79 10*3/uL Normal 1.00-4.00 [facility] Comment on above: Order Comment: Speci men Type: BLOOD SPECIMENOrdering Facility: [facility] Address: [address] [place] [address] Performed By: #### 5 7021-8 ####[facility] LABCLIA [id number] [place] [address] Lymphocytes/100 WBC (Bld) 48.4 % Normal [facility] Comment on above: Order Comment: Speci men Type: BLOOD SPECIMENOrdering Facility: [facility] Address: [address] [place] [address] Performed By: #### 5 7021-8 ####[facility] LABCLIA [id number] [place] [address] MCH (RBC) [Entitic mass] 31.5 pg Normal 26.0-34.0 [facility] Comment on above: Order Comment: Speci men Type: BLOOD SPECIMENOrdering Facility: [facility] Address: [address] [place] [address] Performed By: #### 5 7021-8 ####[facility] LABCLIA [id number] [place] [address] MCHC (RBC) [Mass/Vol] 31.9 g/dL Normal 30.5-36.0 [facility] Comment on above: Order Comment: Speci men Type: BLOOD SPECIMENOrdering Facility: [facility] Address: [address] [place] [address] Performed By: #### 5 7021-8 ####[facility] LABCLIA [id number] [place] [address] MCV (RBC) [Entitic vol] 98.9 fL Normal 80.0-100.0 [facility] Comment on above: Order Comment: Speci men Type: BLOOD SPECIMENOrdering Facility: [facility] Address: [address] [place] [address] Performed By: #### 5 7021-8 ####[facility] LABCLIA [id number] [place] [address] Monocytes (Bld) [#/Vol] 0.30 10*3/uL Normal <0.87 [facility] Comment on above: Order Comment: Speci men Type: BLOOD SPECIMENOrdering Facility: [facility] Address: [address] [place] [address] Performed By: #### 5 7021-8 ####[facility] LABCLIA [id number] [place] [address] Monocytes/100 WBC (Bld) 5.2 % Normal [facility] Comment on above: Order Comment: Speci men Type: BLOOD SPECIMENOrdering Facility: [facility] Address: [address] [place] [address] Performed By: #### 5 7021-8 ####[facility] LABCLIA [id number] [place] [address] Neutrophils (Bld) [#/Vol] 2.59 10*3/uL Normal 1.45-7.50 [facility] Comment on above: Order Comment: Speci men Type: BLOOD SPECIMENOrdering Facility: [facility] Address: [address] [place] [address] Performed By: #### 5 7021-8 ####[facility] LABCLIA [id number] [place] [address] Neutrophils/100 WBC (Bld) 45.0 % Normal [facility] Comment on above: Order Comment: Speci men Type: BLOOD SPECIMENOrdering Facility: [facility] Address: [address] [place] [address] Performed By: #### 5 7021-8 ####[facility] LABCLIA [id number] [place] [address] Nucleated RBC (Bld) [#/Vol] 10*3/uL Normal <0.01 [facility] Comment on above: Order Comment: Speci men Type: BLOOD SPECIMENOrdering Facility: [facility] Address: [address] [place] [address] Performed By: #### 5 7021-8 ####[facility] LABCLIA [id number] [place] [address] Nucleated RBC/100 WBC (Bld) [Ratio] 0.0 /100 WBC Normal [facility] Comment on above: Order Comment: Speci men Type: BLOOD SPECIMENOrdering Facility: [facility] Address: [address] [place] [address] Performed By: #### 5 7021-8 ####[facility] LABCLIA [id number] [place] [address] Platelet mean volume (Bld) [Entitic vol] 9.4 fL Normal 9.0-12.7 [facility] Comment on above: Order Comment: Speci men Type: BLOOD SPECIMENOrdering Facility: [facility] Address: [address] [place] [address] Performed By: #### 5 7021-8 ####[facility] LABCLIA [id number] [place] [address] Platelets (Bld) [#/Vol] 147 10*3/uL Low 150-400 [facility] Comment on above: Order Comment: Speci men Type: BLOOD SPECIMENOrdering Facility: [facility] Address: [address] [place] [address] Performed By: #### 5 7021-8 ####[facility] LABCLIA [id number] [place] [address] RBC (Bld) [#/Vol] 3.49 10*6/uL Low 3.90-5.20 [facility] Comment on above: Order Comment: Speci men Type: BLOOD SPECIMENOrdering Facility: [facility] Address: [address] [place] [address] Performed By: #### 5 7021-8 ####[facility] LABCLIA [id number] [place] [address] WBC (Bld) [#/Vol] 5.76 10*3/uL Normal 3.70-11.00 [facility] Comment on above: Order Comment: Speci men Type: BLOOD SPECIMENOrdering Facility: [facility] Address: [address] [place] [address] Performed By: #### 5 7021-8 ####[facility] LABCLIA [id number] [place] [address] CNOVSPon 10-13-2023 CNOVSP Normal [facility] metabolic 2000 panelon 10-13-2023 Albumin [Mass/Vol] 4.1 g/dL Normal 3.9-4.9 [facility] Comment on above: Order Comment: Speci men Type: BLOOD SPECIMENOrdering Facility: [facility] Address: [address] [place] [address] Performed By: #### 2 4323-8 ####[facility] LABCLIA [id number] [place] [address] ALP [Catalytic activity/Vol] 65 U/L Normal 34-123 [facility] Comment on above: Order Comment: Speci men Type: BLOOD SPECIMENOrdering Facility: [facility] Address: [address] [place] [address] Performed By: #### 2 4323-8 ####[facility] LABCLIA [id number] [place] [address] ALT [Catalytic activity/Vol] 15 U/L Normal 7-38 [facility] Comment on above: Order Comment: Speci men Type: BLOOD SPECIMENOrdering Facility: [facility] Address: [address] [place] [address] Performed By: #### 2 4323-8 ####[facility] LABCLIA [id number] [place] [address] Anion gap [Moles/Vol] 9 mmol/L Normal 9-18 [facility] Comment on above: Order Comment: Speci men Type: BLOOD SPECIMENOrdering Facility: [facility] Address: [address] [place] [address] Performed By: #### 2 4323-8 ####[facility] LABCLIA [id number] [place] [address] AST [Catalytic activity/Vol] 24 U/L Normal 13-35 [facility] Comment on above: Order Comment: Speci men Type: BLOOD SPECIMENOrdering Facility: [facility] Address: [address] [place] [address] Performed By: #### 2 4323-8 ####[facility] LABCLIA [id number] [place] [address] Bilirubin [Mass/Vol] 0.4 mg/dL Normal 0.2-1.3 [facility] Comment on above: Order Comment: Speci men Type: BLOOD SPECIMENOrdering Facility: [facility] Address: [address] [place] [address] Performed By: #### 2 4323-8 ####[facility] LABCLIA [id number] [place] [address] Calcium [Mass/Vol] 10.2 mg/dL Normal 8.5-10.2 [facility] Comment on above: Order Comment: Speci men Type: BLOOD SPECIMENOrdering Facility: [facility] Address: [address] [place] [address] Performed By: #### 2 4323-8 ####[facility] LABCLIA [id number] [place] [address] Chloride [Moles/Vol] 106 mmol/L High 97-105 [facility] Comment on above: Order Comment: Speci men Type: BLOOD SPECIMENOrdering Facility: [facility] Address: [address] [place] [address] Performed By: #### 2 4323-8 ####[facility] LABCLIA [id number] [place] [address] CO2 [Moles/Vol] 24 mmol/L Normal 22-30 [facility] Comment on above: Order Comment: Speci men Type: BLOOD SPECIMENOrdering Facility: [facility] Address: [address] [place] [address] Performed By: #### 2 4323-8 ####[facility] LABCLIA [id number] [place] [address] Creatinine [Mass/Vol] 1.47 mg/dL High 0.58-0.96 [facility] Comment on above: Order Comment: Speci men Type: BLOOD SPECIMENOrdering Facility: [facility] Address: [address] [place] [address] Performed By: #### 2 4323-8 ####[facility] LABCLIA [id number] [place] [address] Creatinine and Glomerular filtration rate.predicted panel (S/P/Bld) 38 mL/min/1.73m??? Low >=60 [facility] Comment on above: Order Comment: Speci men Type: BLOOD SPECIMENOrdering Facility: [facility] Address: [address] [place] [address] Result Comment: Miryam mated Glomerular Filtration Rate [...] actual GFR. Performed By: #### 2 4323-8 ####[facility] LABCLIA [id number] [place] [address] Glucose [Mass/Vol] 120 mg/dL High 74-99 [facility] Comment on above: Order Comment: Speci men Type: BLOOD SPECIMENOrdering Facility: [facility] Address: [address] [place] [address] Result Comment: The [place] [employer] (ADA) provides guidance for cutoff values for fasting glucose and random glucose. The ADA defines fasting as no caloric intake for at least 8 hours. Fasting plasma glucose results between 100 to 125 mg/dL indicate increased risk for diabetes (prediabetes).Fasting plasma glucose results greater than or equal to 126 mg/dL meet the criteria for diagnosis of diabetes. In the absence of unequivocal hyperglycemia, results should be confirmed by repeat testing. In a patient with classic symptoms of hyperglycemia or hyperglycemic crisis, random plasma glucose results greater than or equal to 200 mg/dL meet the criteria for diagnosis of diabetes.Reference: Standards of Medical Care in Diabetes 2016, [place] [employer]. Diabetes Care. 2016.39(Suppl 1). Performed By: #### 2 4323-8 ####[facility] LABCLIA [id number] [place] [address] Potassium [Moles/Vol] 4.6 mmol/L Normal 3.7-5.1 [facility] Comment on above: Order Comment: Speci men Type: BLOOD SPECIMENOrdering Facility: [facility] Address: [address] [place] [address] Performed By: #### 2 4323-8 ####[facility] LABCLIA [id number] [place] [address] Protein [Mass/Vol] 7.9 g/dL Normal 6.3-8.0 [facility] Comment on above: Order Comment: Speci men Type: BLOOD SPECIMENOrdering Facility: [facility] Address: [address] [place] [address] Performed By: #### 2 4323-8 ####[facility] LABCLIA [id number] [place] [address] Sodium [Moles/Vol] 139 mmol/L Normal 136-144 [facility] Comment on above: Order Comment: Speci men Type: BLOOD SPECIMENOrdering Facility: [facility] Address: [address] [place] [address] Performed By: #### 2 4323-8 ####[facility] LABCLIA [id number] [place] [address] Urea nitrogen [Mass/Vol] 42 mg/dL High 7-21 [facility] Comment on above: Order Comment: Speci men Type: BLOOD SPECIMENOrdering Facility: [facility] Address: [address] [place], [place] [address] Performed By: #### 2 4323-8 ####[facility] LABCLIA [id number] [place] [address] Ferritin SerPl-ncon 2023 Ferritin [Mass/Vol] 89.0 ng/mL Normal 14.7-205.1 [facility] Comment on above: Order Comment: Speci men Type: BLOOD SPECIMENOrdering Facility: [facility] Address: [address] [place] [address] Performed By: #### 5 0190-8, 9, 2275-10, 2284-02 ####[facility] LABCLIA [id number] [place] [address] [place] Folate SerPl-ncon 10-13-19 Folate [Mass/Vol] 4.8 ng/mL Normal >4.7 [facility] Comment on above: Order Comment: Speci men Type: BLOOD SPECIMENOrdering Facility: [facility] Address: [address] [place] [address] Performed By: #### 5 0190-8, 2132-03, 2275-10, 2284-02 ####[facility] LABCLIA [id number] [place] [address] [place] Iron and Iron binding capaci ty panelon 10-13-2023 Iron [Mass/Vol] 63 ug/dL Normal 41-186 [facility] Comment on above: Order Comment: Speci men Type: BLOOD SPECIMENOrdering Facility: [facility] Address: [address] [place] [address] Performed By: #### 5 0190-8, 2132-03, 2275-10, 2284-02 ####[facility] LABCLIA [id number] [place] [address] [place] Iron binding capacity [Mass/Vol] 376 ug/dL Normal 232-386 [facility] Comment on above: Order Comment: Speci men Type: BLOOD SPECIMENOrdering Facility: [facility] Address: [address] [place] [address] Performed By: #### 5 0190-8, 9, 2275-10, 2284-02 ####[facility] LABCLIA [id number] [place] [address] [place] Iron/TIBC [Molar ratio] 16.8 % Normal 15.0-57.0 [facility] Comment on above: Order Comment: Speci men Type: BLOOD SPECIMENOrdering Facility: [facility] Address: [address] [place] [address] Performed By: #### 5 0190-8, 2132-03, 2275-10, 2284-02 ####[facility] LABCLIA [id number] [place] [address] [place] Vit B12 [facility] 024 Cobalamin (Vitamin B12) [Mass/Vol] 516 pg/mL Normal 232-1245 [facility] Comment on above: Order Comment: Speci men Type: BLOOD SPECIMENOrdering Facility: [facility] Address: [address] [place] [address] Performed By: #### 5 0190-8, 2132-03, 2275-10, 2284-02 ####[facility] LABCLIA [id number] [place] [address] [place] CBC W Auto Differential pane l (Bld)on 08-28-2023 Basophils (Bld) [#/Vol] 10*3/uL Normal <0.11 C [facility] Comment on above: Order Comment: Speci men Type: BLOOD SPECIMENOrdering Facility: [facility] Address: [address] [place] [address] Performed By: #### 5 7021-8 ####[facility] LABCLIA [id number] [place] [address] Basophils/100 WBC (Bld) 0.4 % Normal C [facility] Comment on above: Order Comment: Speci men Type: BLOOD SPECIMENOrdering Facility: [facility] Address: [address] [place] [address] Performed By: #### 5 7021-8 ####[facility] LABCLIA [id number] [place] [address] Differential cell count method Nom (Bld) Auto Normal [facility] Comment on above: Order Comment: Speci men Type: BLOOD SPECIMENOrdering Facility: [facility] Address: [address] [place] [address] Performed By: #### 5 7021-8 ####[facility] LABCLIA [id number] [place] [address] Eosinophils (Bld) [#/Vol] 0.06 10*3/uL Normal <0.46 [facility] Comment on above: Order Comment: Speci men Type: BLOOD SPECIMENOrdering Facility: [facility] Address: [address] [place] [address] Performed By: #### 5 7021-8 ####[facility] LABCLIA [id number] [place] [address] Eosinophils/100 WBC (Bld) 1.1 % Normal [facility] Comment on above: Order Comment: Speci men Type: BLOOD SPECIMENOrdering Facility: [facility] Address: [address] [place] [address] Performed By: #### 5 7021-8 ####[facility] LABCLIA [id number] [place] [address] Erythrocyte distribution width (RBC) [Ratio] 14.3 % Normal 11.5-15.0 [facility] Comment on above: Order Comment: Speci men Type: BLOOD SPECIMENOrdering Facility: [facility] Address: [address] [place] [address] Performed By: #### 5 7021-8 ####[facility] LABCLIA [id number] [place] [address] Hematocrit (Bld) [Volume fraction] 32.5 % Low 36.0-46.0 [facility] Comment on above: Order Comment: Speci men Type: BLOOD SPECIMENOrdering Facility: [facility] Address: [address] [place] [address] Performed By: #### 5 7021-8 ####[facility] LABCLIA [id number] [place] [address] Hemoglobin (Bld) [Mass/Vol] 10.4 g/dL Low 11.5-15.5 [facility] Comment on above: Order Comment: Speci men Type: BLOOD SPECIMENOrdering Facility: [facility] Address: [address] [place] [address] Performed By: #### 5 7021-8 ####[facility] LABCLIA [id number] [place] [address] Immature granulocytes (Bld) [#/Vol] 10*3/uL Normal <0.10 [facility] Comment on above: Order Comment: Speci men Type: BLOOD SPECIMENOrdering Facility: [facility] Address: [address] [place] [address] Performed By: #### 5 7021-8 ####[facility] LABCLIA [id number] [place] [address] Immature granulocytes/100 WBC (Bld) 0.4 % Normal [facility] Comment on above: Order Comment: Speci men Type: BLOOD SPECIMENOrdering Facility: [facility] Address: [address] [place] [address] Performed By: #### 5 7021-8 ####[facility] LABCLIA [id number] [place] [address] Lymphocytes (Bld) [#/Vol] 2.38 10*3/uL Normal 1.00-4.00 [facility] Comment on above: Order Comment: Speci men Type: BLOOD SPECIMENOrdering Facility: [facility] Address: [address] [place] [address] Performed By: #### 5 7021-8 ####[facility] LABCLIA [id number] [place] [address] Lymphocytes/100 WBC (Bld) 44.3 % Normal [facility] Comment on above: Order Comment: Speci men Type: BLOOD SPECIMENOrdering Facility: [facility] Address: [address] [place] [address] Performed By: #### 5 7021-8 ####[facility] LABCLIA [id number] [place] [address] MCH (RBC) [Entitic mass] 32.0 pg Normal 26.0-34.0 [facility] Comment on above: Order Comment: Speci men Type: BLOOD SPECIMENOrdering Facility: [facility] Address: [address] [place] [address] Performed By: #### 5 7021-8 ####[facility] LABCLIA [id number] [place] [address] MCHC (RBC) [Mass/Vol] 32.0 g/dL Normal 30.5-36.0 [facility] Comment on above: Order Comment: Speci men Type: BLOOD SPECIMENOrdering Facility: [facility] Address: [address] [place] [address] Performed By: #### 5 7021-8 ####[facility] LABCLIA [id number] [place] [address] MCV (RBC) [Entitic vol] 100.0 fL Normal 80.0-100.0 C [facility] Comment on above: Order Comment: Speci men Type: BLOOD SPECIMENOrdering Facility: [facility] Address: [address] [place] [address] Performed By: #### 5 7021-8 ####[facility] LABCLIA [id number] [place] [address] Monocytes (Bld) [#/Vol] 0.29 10*3/uL Normal <0.87 [facility] Comment on above: Order Comment: Speci men Type: BLOOD SPECIMENOrdering Facility: [facility] Address: [address] [place] [address] Performed By: #### 5 7021-8 ####[facility] LABCLIA [id number] [place] [address] Monocytes/100 WBC (Bld) 5.4 % Normal [facility] Comment on above: Order Comment: Speci men Type: BLOOD SPECIMENOrdering Facility: [facility] Address: [address] [place] [address] Performed By: #### 5 7021-8 ####[facility] LABCLIA [id number] [place] [address] Neutrophils (Bld) [#/Vol] 2.60 10*3/uL Normal 1.45-7.50 [facility] Comment on above: Order Comment: Speci men Type: BLOOD SPECIMENOrdering Facility: [facility] Address: [address] [place] [address] Performed By: #### 5 7021-8 ####[facility] LABCLIA [id number] [place] [address] Neutrophils/100 WBC (Bld) 48.4 % Normal [facility] Comment on above: Order Comment: Speci men Type: BLOOD SPECIMENOrdering Facility: [facility] Address: [address] [place] [address] Performed By: #### 5 7021-8 ####[facility] LABCLIA [id number] [place] [address] Nucleated RBC (Bld) [#/Vol] 10*3/uL Normal <0.01 [facility] Comment on above: Order Comment: Speci men Type: BLOOD SPECIMENOrdering Facility: [facility] Address: [address] [place] [address] Performed By: #### 5 7021-8 ####[facility] LABCLIA [id number] [place] [address] Nucleated RBC/100 WBC (Bld) [Ratio] 0.0 /100 WBC Normal [facility] Comment on above: Order Comment: Speci men Type: BLOOD SPECIMENOrdering Facility: [facility] Address: [address] [place] [address] Performed By: #### 5 7021-8 ####[facility] LABCLIA [id number] [place] [address] Platelet mean volume (Bld) [Entitic vol] 9.3 fL Normal 9.0-12.7 [facility] Comment on above: Order Comment: Speci men Type: BLOOD SPECIMENOrdering Facility: [facility] Address: [address] [place] [address] Performed By: #### 5 7021-8 ####[facility] LABCLIA [id number] [place] [address] Platelets (Bld) [#/Vol] 124 10*3/uL Low 150-400 [facility] Comment on above: Order Comment: Speci men Type: BLOOD SPECIMENOrdering Facility: [facility] Address: [address] [place] [address] Performed By: #### 5 7021-8 ####[facility] LABCLIA [id number] [place] [address] RBC (Bld) [#/Vol] 3.25 10*6/uL Low 3.90-5.20 [facility] Comment on above: Order Comment: Speci men Type: BLOOD SPECIMENOrdering Facility: [facility] Address: [address] [place] [address] Performed By: #### 5 7021-8 ####[facility] LABCLIA [id number] [place] [address] WBC (Bld) [#/Vol] 5.37 10*3/uL Normal 3.70-11.00 [facility] Comment on above: Order Comment: Speci men Type: BLOOD SPECIMENOrdering Facility: [facility] Address: [address] [place] [address] Performed By: #### 5 7021-8 ####[facility] LABCLIA [id number] [place] [address] CNOVSPon 08-28-2023 CNOVSP Normal [facility] metabolic 2000 panelon 08-28-2023 Albumin [Mass/Vol] 3.9 g/dL Normal 3.9-4.9 [facility] Comment on above: Order Comment: Speci men Type: BLOOD SPECIMENOrdering Facility: [facility] Address: [address] [place] [address] Performed By: #### 2 4323-8 ####[facility] LABCLIA [id number] [place] [address] ALP [Catalytic activity/Vol] 65 U/L Normal 34-123 [facility] Comment on above: Order Comment: Speci men Type: BLOOD SPECIMENOrdering Facility: [facility] Address: [address] [place] [address] Performed By: #### 2 4323-8 ####[facility] LABCLIA [id number] [place] [address] ALT [Catalytic activity/Vol] 19 U/L Normal 7-38 [facility] Comment on above: Order Comment: Speci men Type: BLOOD SPECIMENOrdering Facility: [facility] Address: [address] [place] [address] Performed By: #### 2 4323-8 ####[facility] LABCLIA [id number] [place] [address] Anion gap [Moles/Vol] 7 mmol/L Low 9-18 [facility] Comment on above: Order Comment: Speci men Type: BLOOD SPECIMENOrdering Facility: [facility] Address: [address] [place] [address] Performed By: #### 2 4323-8 ####[facility] LABCLIA [id number] [place] [address] AST [Catalytic activity/Vol] 27 U/L Normal 13-35 [facility] Comment on above: Order Comment: Speci men Type: BLOOD SPECIMENOrdering Facility: [facility] Address: [address] [place] [address] Performed By: #### 2 4323-8 ####[facility] LABCLIA [id number] [place] [address] Bilirubin [Mass/Vol] 0.3 mg/dL Normal 0.2-1.3 [facility] Comment on above: Order Comment: Speci men Type: BLOOD SPECIMENOrdering Facility: [facility] Address: [address] [place] [address] Performed By: #### 2 4323-8 ####[facility] LABCLIA [id number] [place] [address] Calcium [Mass/Vol] 10.0 mg/dL Normal 8.5-10.2 [facility] Comment on above: Order Comment: Speci men Type: BLOOD SPECIMENOrdering Facility: [facility] Address: [address] [place] [address] Performed By: #### 2 4323-8 ####[facility] LABCLIA [id number] [place] [address] Chloride [Moles/Vol] 106 mmol/L High 97-105 [facility] Comment on above: Order Comment: Speci men Type: BLOOD SPECIMENOrdering Facility: [facility] Address: [address] [place] [address] Performed By: #### 2 4323-8 ####[facility] LABCLIA [id number] [place] [address] CO2 [Moles/Vol] 25 mmol/L Normal 22-30 [facility] Comment on above: Order Comment: Speci men Type: BLOOD SPECIMENOrdering Facility: [facility] Address: [address] [place] [address] Performed By: #### 2 4323-8 ####[facility] LABCLIA [id number] [place] [address] Creatinine [Mass/Vol] 1.02 mg/dL High 0.58-0.96 [facility] Comment on above: Order Comment: Speci men Type: BLOOD SPECIMENOrdering Facility: [facility] Address: [address] [place] [address] Performed By: #### 2 4323-8 ####[facility] LABCLIA [id number] [place] [address] Creatinine and Glomerular filtration rate.predicted panel (S/P/Bld) 59 mL/min/1.73m??? Low >=60 [facility] Comment on above: Order Comment: Speci men Type: BLOOD SPECIMENOrdering Facility: [facility] Address: [address] [place] [address] Result Comment: Miryam mated Glomerular Filtration Rate [...] actual GFR. Performed By: #### 2 4323-8 ####[facility] LABCLIA [id number] [place] [address] Glucose [Mass/Vol] 101 mg/dL High 74-99 [facility] Comment on above: Order Comment: Speci men Type: BLOOD SPECIMENOrdering Facility: [facility] Address: [address] [place] [address] Result Comment: The [place] Diabetes [employer] (ADA) provides guidance for cutoff values for fasting glucose and random glucose. The ADA defines fasting as no caloric intake for at least 8 hours. Fasting plasma glucose results between 100 to 125 mg/dL indicate increased risk for diabetes (prediabetes).Fasting plasma glucose results greater than or equal to 126 mg/dL meet the criteria for diagnosis of diabetes. In the absence of unequivocal hyperglycemia, results should be confirmed by repeat testing. In a patient with classic symptoms of hyperglycemia or hyperglycemic crisis, random plasma glucose results greater than or equal to 200 mg/dL meet the criteria for diagnosis of diabetes.Reference: Standards of Medical Care in Diabetes 2016, [place] [employer]. Diabetes Care. 2016.39(Suppl 1). Performed By: #### 2 4323-8 ####[facility] LABCLIA [id number] [place] [address] Potassium [Moles/Vol] 4.2 mmol/L Normal 3.7-5.1 [facility] Comment on above: Order Comment: Speci men Type: BLOOD SPECIMENOrdering Facility: [facility] Address: [address] [place] [address] Performed By: #### 2 4323-8 ####[facility] LABCLIA [id number] [place] [address] Protein [Mass/Vol] 7.5 g/dL Normal 6.3-8.0 [facility] Comment on above: Order Comment: Speci men Type: BLOOD SPECIMENOrdering Facility: [facility] Address: [address] [place] [address] Performed By: #### 2 4323-8 ####[facility] LABCLIA [id number] [place] [address] Sodium [Moles/Vol] 138 mmol/L Normal 136-144 [facility] Comment on above: Order Comment: Speci men Type: BLOOD SPECIMENOrdering Facility: [facility] Address: [address] [place] [address] Performed By: #### 2 4323-8 ####[facility] LABCLIA [id number] [place] [address] Urea nitrogen [Mass/Vol] 25 mg/dL High 7-21 [facility] Comment on above: Order Comment: Speci men Type: BLOOD SPECIMENOrdering Facility: [facility] Address: [address] [place], [place] [address] Performed By: #### 2 4323-8 ####[facility] LABCLIA [id number] [place] [address] Ferritin [facility]Pl[facility] Ferritin [Mass/Vol] 93.1 ng/mL Normal 14.7-205.1 [facility] Comment on above: Order Comment: Speci men Type: BLOOD SPECIMENOrdering Facility: [facility] Address: [address] [place] [address] Performed By: #### 5 0190-8, 9, 2275-10, 2284-02 ####[facility] LABCLIA [id number] [place] [id number] [place] Folate SerPl-ncon 08-28-19 Folate [Mass/Vol] 7.3 ng/mL Normal >4.7 [facility] Comment on above: Order Comment: Speci men Type: BLOOD SPECIMENOrdering Facility: [facility] Address: [address] [place] [address] Performed By: #### 5 0190-8, 9, 2275-10, 2284-02 ####[facility] LABCLIA [id number] [place] [id number] [place] Iron and Iron binding capaci ty panelon 08-28-2023 Iron [Mass/Vol] 50 ug/dL Normal 41-186 [facility] Comment on above: Order Comment: Speci men Type: BLOOD SPECIMENOrdering Facility: [facility] Address: [address] [place] [address] Performed By: #### 5 0190-8, 9, 2275-10, 2284-02 ####[facility] LABCLIA [id number] [place] [id number] [place] Iron binding capacity [Mass/Vol] 362 ug/dL Normal 232-386 [facility] Comment on above: Order Comment: Speci men Type: BLOOD SPECIMENOrdering Facility: [facility] Address: [address] [place] [address] Performed By: #### 5 0190-8, 9, 2275-10, 2284-02 ####[facility] LABIA [id number] [place] [address] [place] Iron/TIBC [Molar ratio] 13.8 % Low 15.0-57.0 C [facility] Comment on above: Order Comment: Speci men Type: BLOOD SPECIMENOrdering Facility: [facility] Address: [address] [place] [address] Performed By: #### 5 0190-8, 2132-03, 2275-10, 2284-02 ####[facility] LABIA [id number] [place] [address] [place] Vit B12 [facility] Cobalamin (Vitamin B12) [Mass/Vol] 437 pg/mL Normal 232-1245 [facility] Comment on above: Order Comment: Speci men Type: BLOOD SPECIMENOrdering Facility: [facility] Address: [address] [place] [address] Performed By: #### 5 0190-8, 9, 2275-10, 2284-02 ####[facility] LABIA [id number] [place] [id number] [place] Auditory function testson Right Ear: Mild sensorineural hearing loss from 250 Hz - 500 Hz. 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 Severe mixed hearing loss above 3K Hz [facility] CBC W Auto Differential pane l (Bld)on 07-17-2023 Basophils (Bld) [#/Vol] 10*3/uL Normal <0.11 [facility] Comment on above: Order Comment: Speci men Type: BLOOD SPECIMENOrdering Facility: [facility] Address: [address] [place] [address] Performed By: #### 5 7021-8 ####[facility] LABCLIA [id number] [place] [address] Basophils/100 WBC (Bld) 0.3 % Normal C [facility] Comment on above: Order Comment: Speci men Type: BLOOD SPECIMENOrdering Facility: [facility] Address: [address] [place] [address] Performed By: #### 5 7021-8 ####[facility] LABCLIA [id number] [place] [address] Differential cell count method Nom (Bld) Auto Normal [facility] Comment on above: Order Comment: Speci men Type: BLOOD SPECIMENOrdering Facility: [facility] Address: [address] [place] [address] Performed By: #### 5 7021-8 ####[facility] LABCLIA [id number] [place] [address] Eosinophils (Bld) [#/Vol] 0.05 10*3/uL Normal <0.46 [facility] Comment on above: Order Comment: Speci men Type: BLOOD SPECIMENOrdering Facility: [facility] Address: [address] [place] [address] Performed By: #### 5 7021-8 ####[facility] LABCLIA [id number] [place] [address] Eosinophils/100 WBC (Bld) 0.8 % Normal [facility] Comment on above: Order Comment: Speci men Type: BLOOD SPECIMENOrdering Facility: [facility] Address: [address] [place] [address] Performed By: #### 5 7021-8 ####[facility] LABCLIA [id number] [place] [address] Erythrocyte distribution width (RBC) [Ratio] 14.1 % Normal 11.5-15.0 [facility] Comment on above: Order Comment: Speci men Type: BLOOD SPECIMENOrdering Facility: [facility] Address: [address] [place] [address] Performed By: #### 5 7021-8 ####[facility] LABCLIA [id number] [place] [address] Hematocrit (Bld) [Volume fraction] 34.7 % Low 36.0-46.0 [facility] Comment on above: Order Comment: Speci men Type: BLOOD SPECIMENOrdering Facility: [facility] Address: [address] [place] [address] Performed By: #### 5 7021-8 ####[facility] LABIA [id number] [place] [address] Hemoglobin (Bld) [Mass/Vol] 11.1 g/dL Low 11.5-15.5 [facility] Comment on above: Order Comment: Speci men Type: BLOOD SPECIMENOrdering Facility: [facility] Address: [address] [place] [address] Performed By: #### 5 7021-8 ####[facility] LABIA [id number] [place] [address] Immature granulocytes (Bld) [#/Vol] 10*3/uL Normal <0.10 [facility] Comment on above: Order Comment: Speci men Type: BLOOD SPECIMENOrdering Facility: [facility] Address: [address] [place] [address] Performed By: #### 5 7021-8 ####[facility] LABIA [id number] [place] [address] Immature granulocytes/100 WBC (Bld) 0.2 % Normal [facility] Comment on above: Order Comment: Speci men Type: BLOOD SPECIMENOrdering Facility: [facility] Address: [address] [place] [address] Performed By: #### 5 7021-8 ####[facility] LABCLIA [id number] [place] [address] Lymphocytes (Bld) [#/Vol] 3.00 10*3/uL Normal 1.00-4.00 [facility] Comment on above: Order Comment: Speci men Type: BLOOD SPECIMENOrdering Facility: [facility] Address: [address] [place] [address] Performed By: #### 5 7021-8 ####[facility] LABCLIA [id number] [place] [address] Lymphocytes/100 WBC (Bld) 49.4 % Normal [facility] Comment on above: Order Comment: Speci men Type: BLOOD SPECIMENOrdering Facility: [facility] Address: [address] [place] [address] Performed By: #### 5 7021-8 ####[facility] LABCLIA [id number] [place] [address] MCH (RBC) [Entitic mass] 31.1 pg Normal 26.0-34.0 [facility] Comment on above: Order Comment: Speci men Type: BLOOD SPECIMENOrdering Facility: [facility] Address: [address] [place] [address] Performed By: #### 5 7021-8 ####[facility] LABCLIA [id number] [place] [address] MCHC (RBC) [Mass/Vol] 32.0 g/dL Normal 30.5-36.0 [facility] Comment on above: Order Comment: Speci men Type: BLOOD SPECIMENOrdering Facility: [facility] Address: [address] [place] [address] Performed By: #### 5 7021-8 ####[facility] LABCLIA [id number] [place] [address] MCV (RBC) [Entitic vol] 97.2 fL Normal 80.0-100.0 [facility] Comment on above: Order Comment: Speci men Type: BLOOD SPECIMENOrdering Facility: [facility] Address: [address] [place] [address] Performed By: #### 5 7021-8 ####[facility] LABCLIA [id number] [place] [address] Monocytes (Bld) [#/Vol] 0.24 10*3/uL Normal <0.87 [facility] Comment on above: Order Comment: Speci men Type: BLOOD SPECIMENOrdering Facility: [facility] Address: [address] [place] [address] Performed By: #### 5 7021-8 ####[facility] LABCLIA [id number] [place] [address] Monocytes/100 WBC (Bld) 4.0 % Normal [facility] Comment on above: Order Comment: Speci men Type: BLOOD SPECIMENOrdering Facility: [facility] Address: [address] [place] [address] Performed By: #### 5 7021-8 ####[facility] LABCLIA [id number] [place] [address] Neutrophils (Bld) [#/Vol] 2.75 10*3/uL Normal 1.45-7.50 [facility] Comment on above: Order Comment: Speci men Type: BLOOD SPECIMENOrdering Facility: [facility] Address: [address] [place] [address] Performed By: #### 5 7021-8 ####[facility] LABCLIA [id number] [place] [address] Neutrophils/100 WBC (Bld) 45.3 % Normal [facility] Comment on above: Order Comment: Speci men Type: BLOOD SPECIMENOrdering Facility: [facility] Address: [address] [place] [address] Performed By: #### 5 7021-8 ####[facility] LABCLIA [id number] [place] [address] Nucleated RBC (Bld) [#/Vol] 10*3/uL Normal <0.01 [facility] Comment on above: Order Comment: Speci men Type: BLOOD SPECIMENOrdering Facility: [facility] Address: [address] [place] [address] Performed By: #### 5 7021-8 ####[facility] LABCLIA [id number] [place] [address] Nucleated RBC/100 WBC (Bld) [Ratio] 0.0 /100 WBC Normal [facility] Comment on above: Order Comment: Speci men Type: BLOOD SPECIMENOrdering Facility: [facility] Address: [address] [place] [address] Performed By: #### 5 7021-8 ####[facility] LABCLIA [id number] [place] [address] Platelet mean volume (Bld) [Entitic vol] 9.3 fL Normal 9.0-12.7 [facility] Comment on above: Order Comment: Speci men Type: BLOOD SPECIMENOrdering Facility: [facility] Address: [address] [place] [address] Performed By: #### 5 7021-8 ####[facility] LABCLIA [id number] [place] [address] Platelets (Bld) [#/Vol] 148 10*3/uL Low 150-400 [facility] Comment on above: Order Comment: Speci men Type: BLOOD SPECIMENOrdering Facility: [facility] Address: [address] [place] [address] Performed By: #### 5 7021-8 ####[facility] LABCLIA [id number] [place] [address] RBC (Bld) [#/Vol] 3.57 10*6/uL Low 3.90-5.20 [facility] Comment on above: Order Comment: Speci men Type: BLOOD SPECIMENOrdering Facility: [facility] Address: [address] [place] [address] Performed By: #### 5 7021-8 ####[facility] LABCLIA [id number] [place] [address] WBC (Bld) [#/Vol] 6.07 10*3/uL Normal 3.70-11.00 [facility] Comment on above: Order Comment: Speci men Type: BLOOD SPECIMENOrdering Facility: [facility] Address: [address] [place] [address] Performed By: #### 5 7021-8 ####[facility] LABCLIA [id number] [place] [address] CNOVSPon 07-17-2023 CNOVSP Normal [facility] metabolic 2000 panelon 07-17-2023 Albumin [Mass/Vol] 4.0 g/dL Normal 3.9-4.9 [facility] Comment on above: Order Comment: Speci men Type: BLOOD SPECIMENOrdering Facility: [facility] Address: [address] [place] [address] Performed By: #### 2 4323-8 ####[facility] LABCLIA [id number] [place] [address] ALP [Catalytic activity/Vol] 77 U/L Normal 34-123 [facility] Comment on above: Order Comment: Speci men Type: BLOOD SPECIMENOrdering Facility: [facility] Address: [address] [place] [address] Performed By: #### 2 4323-8 ####[facility] LABCLIA [id number] [place] [address] ALT [Catalytic activity/Vol] 17 U/L Normal 7-38 [facility] Comment on above: Order Comment: Speci men Type: BLOOD SPECIMENOrdering Facility: [facility] Address: [address] [place] [address] Performed By: #### 2 4323-8 ####[facility] LABCLIA [id number] [place] [address] Anion gap [Moles/Vol] 8 mmol/L Low 9-18 [facility] Comment on above: Order Comment: Speci men Type: BLOOD SPECIMENOrdering Facility: [facility] Address: [address] [place] [address] Performed By: #### 2 4323-8 ####[facility] LABCLIA [id number] [place] [address] AST [Catalytic activity/Vol] 26 U/L Normal 13-35 [facility] Comment on above: Order Comment: Speci men Type: BLOOD SPECIMENOrdering Facility: [facility] Address: [address] [place] [address] Performed By: #### 2 4323-8 ####[facility] LABCLIA [id number] [place] [address] Bilirubin [Mass/Vol] 0.4 mg/dL Normal 0.2-1.3 [facility] Comment on above: Order Comment: Speci men Type: BLOOD SPECIMENOrdering Facility: [facility] Address: [address] [place] [address] Performed By: #### 2 4323-8 ####[facility] LABCLIA [id number] [place] [address] Calcium [Mass/Vol] 9.7 mg/dL Normal 8.5-10.2 [facility] Comment on above: Order Comment: Speci men Type: BLOOD SPECIMENOrdering Facility: [facility] Address: [address] [place] [address] Performed By: #### 2 4323-8 ####[facility] LABCLIA [id number] [place] [address] Chloride [Moles/Vol] 106 mmol/L High 97-105 [facility] Comment on above: Order Comment: Speci men Type: BLOOD SPECIMENOrdering Facility: [facility] Address: [address] [place] [address] Performed By: #### 2 4323-8 ####[facility] LABCLIA [id number] [place] [address] CO2 [Moles/Vol] 24 mmol/L Normal 22-30 [facility] Comment on above: Order Comment: Speci men Type: BLOOD SPECIMENOrdering Facility: [facility] Address: [address] [place] [address] Performed By: #### 2 4323-8 ####[facility] LABCLIA [id number] [place] [address] Creatinine [Mass/Vol] 1.32 mg/dL High 0.58-0.96 [facility] Comment on above: Order Comment: Speci men Type: BLOOD SPECIMENOrdering Facility: [facility] Address: [address] [place] [address] Performed By: #### 2 4323-8 ####[facility] LABIA [id number] [place] [address] Creatinine and Glomerular filtration rate.predicted panel (S/P/Bld) 43 mL/min/1.73m??? Low >=60 [facility] Comment on above: Order Comment: Speci men Type: BLOOD SPECIMENOrdering Facility: [facility] Address: [address] [place] [address] Result Comment: Miryam mated Glomerular Filtration Rate [...] actual GFR. Performed By: #### 2 4323-8 ####[facility] LABIA [id number] [place] [address] Glucose [Mass/Vol] 119 mg/dL High 74-99 [facility] Comment on above: Order Comment: Speci men Type: BLOOD SPECIMENOrdering Facility: [facility] Address: [address] [place] [address] Result Comment: The [place] [employer] (ADA) provides guidance for cutoff values for fasting glucose and random glucose. The ADA defines fasting as no caloric intake for at least 8 hours. Fasting plasma glucose results between 100 to 125 mg/dL indicate increased risk for diabetes (prediabetes).Fasting plasma glucose results greater than or equal to 126 mg/dL meet the criteria for diagnosis of diabetes. In the absence of unequivocal hyperglycemia, results should be confirmed by repeat testing. In a patient with classic symptoms of hyperglycemia or hyperglycemic crisis, random plasma glucose results greater than or equal to 200 mg/dL meet the criteria for diagnosis of diabetes.Reference: Standards of Medical Care in Diabetes 2016, [place] [employer]. Diabetes Care. 2016.39(Suppl 1). Performed By: #### 2 4323-8 ####[facility] LABCLIA [id number] [place] [address] Potassium [Moles/Vol] 4.4 mmol/L Normal 3.7-5.1 [facility] Comment on above: Order Comment: Speci men Type: BLOOD SPECIMENOrdering Facility: [facility] Address: [address] [place] [address] Performed By: #### 2 4323-8 ####[facility] LABIA [id number] [place] [address] Protein [Mass/Vol] 7.6 g/dL Normal 6.3-8.0 [facility] Comment on above: Order Comment: Speci men Type: BLOOD SPECIMENOrdering Facility: [facility] Address: [address] [place] [address] Performed By: #### 2 4323-8 ####[facility] LABCLIA [id number] [place] [address] Sodium [Moles/Vol] 138 mmol/L Normal 136-144 [facility] Comment on above: Order Comment: Speci men Type: BLOOD SPECIMENOrdering Facility: [facility] Address: [address] [place] [address] Performed By: #### 2 4323-8 ####[facility] LABCLIA [id number] [place] [address] Urea nitrogen [Mass/Vol] 35 mg/dL High 7-21 [facility] Comment on above: Order Comment: Speci men Type: BLOOD SPECIMENOrdering Facility: [facility] Address: [address] [place] [address] Performed By: #### 2 4323-8 ####LEIGHANNJOSE ROBERTO [facility] LABCLIA [id number] [place] [address] Ferritin SerPl-mCncon 2023 Ferritin [Mass/Vol] 71.8 ng/mL Normal 14.7-205.1 [facility] Comment on above: Order Comment: Speci men Type: BLOOD SPECIMENOrdering Facility: [facility] Address: [address] [place] [address] Performed By: #### 5 0190-8, 2131-9, 2283-8, 6-4 ####[facility] LABCLIA [id number] [place] [address] [place] Folate SerPl-mCncon 07-17-19 24 Folate [Mass/Vol] 8.6 ng/mL Normal >4.7 [facility] Comment on above: Order Comment: Speci men Type: BLOOD SPECIMENOrdering Facility: [facility] Address: [address] [place] [address] Performed By: #### 5 0190-8, 2131-9, 2283-8, 2275-4 ####[facility] LABCLIA [id number] [place] [address] [place] Iron and Iron binding capaci ty panelon 07-17-2023 Iron [Mass/Vol] 66 ug/dL Normal 41-186 [facility] Comment on above: Order Comment: Speci men Type: BLOOD SPECIMENOrdering Facility: [facility] Address: [address] [place] [address] Performed By: #### 5 0190-8, 2131-9, 2283-8, 6-4 ####[facility] LABCLIA [id number] [place] [id number] [place] Iron binding capacity [Mass/Vol] 349 ug/dL Normal 232-386 [facility] Comment on above: Order Comment: Speci men Type: BLOOD SPECIMENOrdering Facility: [facility] Address: [address] [place] [address] Performed By: #### 5 0190-8, 9, 2284-02, 2275-4 ####[facility] LABIA [id number] [place] [id number] [place] Iron/TIBC [Molar ratio] 18.9 % Normal 15.0-57.0 C [facility] Comment on above: Order Comment: Speci men Type: BLOOD SPECIMENOrdering Facility: [facility] Address: [address] [place] [address] Performed By: #### 5 0190-8, 9, 2284-02, 2275-10 ####[facility] [id number] [place] [id number] [place] Vit B12 [facility] 024 Cobalamin (Vitamin B12) [Mass/Vol] 486 pg/mL Normal 232-1245 [facility] Comment on above: Order Comment: Speci men Type: BLOOD SPECIMENOrdering Facility: [facility] Address: [address] [place] [address] Performed By: #### 5 0190-8, 9, 2284-02, 2275-10 ####[facility] LABIA [id number] [place] [id number] [place] Dipstick & Microscopicon Dipstick & Microscopic No [email or web address] Other Dipstick and Microscopicon 1 08-29-2022 Appearance (U) Clear Normal Clear [facility] Comment on above: Order Comment: Reaso n for Exam HTN (hypertension);Lupus;Chronic ITP (idiopathic thrombocyto Performed By: #### C BCNO #### [facility] [address] [place] [address] [place] Bacteria,Urine None Seen Normal None Seen [facility] Comment on above: Order Comment: Reaso n for Exam HTN (hypertension);Lupus;Chronic ITP (idiopathic thrombocyto Performed By: #### C BCNO #### [facility] [address] [place] [address] [place] Bilirubin,Urine Negative Normal Negative [facility] Comment on above: Order Comment: Reaso n for Exam HTN (hypertension);Lupus;Chronic ITP (idiopathic thrombocyto Performed By: #### C BCNO #### [facility] [address] Color (U) Yellow Normal Yellow [facility] Comment on above: Order Comment: Reaso n for Exam HTN (hypertension);Lupus;Chronic ITP (idiopathic thrombocyto Performed By: #### C BCNO #### [facility] [address] [place] [address] [place] Glucose Ql (U) Normal Normal Normal [facility] Comment on above: Order Comment: Reaso n for Exam HTN (hypertension);Lupus;Chronic ITP (idiopathic thrombocyto Performed By: #### C BCNO #### [facility] [address] [place] [address] [place] Hyaline Casts,Urine 0-8 Normal 0-8 [facility] Comment on above: Order Comment: Reaso n for Exam HTN (hypertension);Lupus;Chronic ITP (idiopathic thrombocyto Result Comment: PERF ORMED BY: [place] [address] PATHOLOGIST [employer] IVORY BORRERO M.D. Performed By: #### C BCNO #### [facility] [address] [place] [address] [place] Ketones Ql (U) Negative Normal Negative [facility] Comment on above: Order Comment: Reaso n for Exam HTN (hypertension);Lupus;Chronic ITP (idiopathic thrombocyto Performed By: #### C BCNO #### [facility] [address] [place] [address] [place] Leukocyte esterase Test strip Ql (U) Negative Normal Negative [facility] Comment on above: Order Comment: Reaso n for Exam HTN (hypertension);Lupus;Chronic ITP (idiopathic thrombocyto Performed By: #### C BCNO #### [facility] [address] [place] [address] [place] Nitrite,Urine Negative Normal Negative [facility] Comment on above: Order Comment: Reaso n for Exam HTN (hypertension);Lupus;Chronic ITP (idiopathic thrombocyto Performed By: #### C BCNO #### [facility] [address] Occult Blood,Urine Negative Normal Negative [facility] Comment on above: Order Comment: Reaso n for Exam HTN (hypertension);Lupus;Chronic ITP (idiopathic thrombocyto Performed By: #### C BCNO #### [facility] [address] pH (U) 5.5 [pH] Normal 5.0-9.0 [facility] Comment on above: Order Comment: Reaso n for Exam HTN (hypertension);Lupus;Chronic ITP (idiopathic thrombocyto Performed By: #### C BCNO #### [facility] [address] [place] [address] [place] Protein,Urine Negative Normal Negative [facility] Comment on above: Order Comment: Reaso n for Exam HTN (hypertension);Lupus;Chronic ITP (idiopathic thrombocyto Performed By: #### C BCNO #### [facility] [address] [place] [address] [place] RBC,Urine 3-4 Normal 0-4 [facility] Comment on above: Order Comment: Reaso n for Exam HTN (hypertension);Lupus;Chronic ITP (idiopathic thrombocyto Performed By: #### C BCNO #### [facility] [address] [place] [address] [place] Specificy Rhodes,Urine 1.019 Normal 1.001-1.030 [facility] Comment on above: Order Comment: Reaso n for Exam HTN (hypertension);Lupus;Chronic ITP (idiopathic thrombocyto Performed By: #### C BCNO #### [facility] [address] [place] [address] [place] Squamous Epithelial Cell,Urine 3-4 High 0-2 [facility] Comment on above: Order Comment: Reaso n for Exam HTN (hypertension);Lupus;Chronic ITP (idiopathic thrombocyto Performed By: #### C BCNO #### [facility] [address] Urobilinogen,Urine Normal Normal Normal [facility] Comment on above: Order Comment: Reaso n for Exam HTN (hypertension);Lupus;Chronic ITP (idiopathic thrombocyto Performed By: #### C BCNO #### [facility] [address] WBC LM.HPF (Urine sed) [#/Area] 0 /[HPF] Normal 0-4 [facility] Comment on above: Order Comment: Reaso n for Exam HTN (hypertension);Lupus;Chronic ITP (idiopathic thrombocyto Performed By: #### C BCNO #### [facility] [address] Ferritinon 06-28-2023 Ferritin [Mass/Vol] 51.5133430 ng/mL Normal 11.0 -306.8 ng/mL [facility] [employer] Other Ferritin [Mass/Vol] 51.6 ng/mL Normal 11.0-306.8 [facility] Comment on above: Order Comment: Reaso n for Exam HTN (hypertension);Lupus;Chronic ITP (idiopathic thrombocyto Performed By: #### C BCNO, RENAL, MG, [id number], TRAN, PROCRERAT, PTH, URIC #### [facility] [address] Hemogram CBC Without Diffon 06-28-2023 Erythrocyte distribution width (RBC) [Ratio] 15.200 % Normal 11.9-15.3 % [employer] Other Hematocrit (Bld) [Volume fraction] 32.300 % Low 34.0-46.4 % [employer] Other Hemoglobin (Bld) [Mass/Vol] 10.589154 g/dL Low 11.8-15.4 g/dL [employer] Other MCH (RBC) [Entitic mass] 31.8000 pg Normal 24.7-34.3 p g [employer] Other MCV (RBC) [Entitic vol] 96.6000 fL Normal 80-100 fL N [employer] Other Platelet mean volume (Bld) [Entitic vol] 8.3000 fL Normal 6.3-10.7 fL [employer] Other WBC (Bld) [#/Vol] 4.085848942 10*3/uL Normal 3.8 -11.6 10*3/uL [employer] Other Hemogram CBC Without Diff 32.9 g/dL Normal 32.0-35.0 g/dL [employer] Other Erythrocyte distribution width (RBC) [Ratio] 15.2 % Normal 11.9-15.3 [facility] Comment on above: Order Comment: Reaso n for Exam HTN (hypertension);Lupus;Chronic ITP (idiopathic thrombocyto Performed By: #### C BCNO, RENAL, MG, [id number], TRAN, PROCRERAT, PTH, URIC #### [facility] [address] Hematocrit (Bld) [Volume fraction] 32.3 % Low 34.0-46.4 [facility] Comment on above: Order Comment: Reaso n for Exam HTN (hypertension);Lupus;Chronic ITP (idiopathic thrombocyto Performed By: #### C BCNO, RENAL, MG, [id number], TRAN, PROCRERAT, PTH, URIC #### [facility] [address] Hemoglobin (Bld) [Mass/Vol] 10.6 g/dL Low 11.8-15.4 [facility] Comment on above: Order Comment: Reaso n for Exam HTN (hypertension);Lupus;Chronic ITP (idiopathic thrombocyto Performed By: #### C BCNO, RENAL, MG, [id number], TRAN, PROCRERAT, PTH, URIC #### [facility] [address] [place] [address] MCH (RBC) [Entitic mass] 31.8 pg Normal 24.7-34.3 [facility] Comment on above: Order Comment: Reaso n for Exam HTN (hypertension);Lupus;Chronic ITP (idiopathic thrombocyto Performed By: #### C BCNO, RENAL, MG, [id number], TRAN, PROCRERAT, PTH, URIC #### [address] MCV (RBC) [Entitic vol] 96.6 fL Normal 80-100 F [facility] Comment on above: Order Comment: Reaso n for Exam HTN (hypertension);Lupus;Chronic ITP (idiopathic thrombocyto Performed By: #### C BCNO, RENAL, MG, [id number], TRAN, PROCRERAT, PTH, URIC #### [address] Mean Corpuscular HGB Conc 32.9 g/dL Normal 32.0-35.0 [facility] Comment on above: Order Comment: Reaso n for Exam HTN (hypertension);Lupus;Chronic ITP (idiopathic thrombocyto Performed By: #### C BCNO, RENAL, MG, [id number], TRAN, PROCRERAT, PTH, URIC #### [address] Platelet mean volume (Bld) [Entitic vol] 8.3 fL Normal 6.3-10.7 [facility] Comment on above: Order Comment: Reaso n for Exam HTN (hypertension);Lupus;Chronic ITP (idiopathic thrombocyto Result Comment: PERF ORMED BY: [place] [address] PATHOLOGIST [employer] IVORY BORRERO M.D. Performed By: #### C BCNO, RENAL, MG, [id number], TRAN, PROCRERAT, PTH, URIC #### [address] Platelets (Bld) [#/Vol] 161 10*3/uL Normal 150-450 [employer] Other Comment on above: Order Comment: Reaso n for Exam HTN (hypertension);Lupus;Chronic ITP (idiopathic thrombocyto Performed By: #### C BCNO, RENAL, MG, [id number], TRAN, PROCRERAT, PTH, URIC #### [facility] [address] RBC (Bld) [#/Vol] 3.34 10*6/uL Low 3.60-5.00 [facility] [employer] Other Comment on above: Order Comment: Reaso n for Exam HTN (hypertension);Lupus;Chronic ITP (idiopathic thrombocyto Performed By: #### C BCNO, RENAL, MG, [id number], TRAN, PROCRERAT, PTH, URIC #### [facility] [address] WBC (Bld) [#/Vol] 4.7 10*3/uL Normal 3.8-11.6 [facility] Comment on above: Order Comment: Reaso n for Exam HTN (hypertension);Lupus;Chronic ITP (idiopathic thrombocyto Performed By: #### C BCNO, RENAL, MG, [id number], TRAN, PROCRERAT, PTH, URIC #### [facility] [address] [place] [id number] [facility] Magnesiumon 06-28-2023 Magnesium [Mass/Vol] 2.8145771 mg/dL Normal 1.9- 2.7 mg/dL [facility] [employer] Other Magnesium [Mass/Vol] 2.5 mg/dL Normal 1.9-2.7 [facility] Comment on above: Order Comment: Reaso n for Exam HTN (hypertension);Lupus;Chronic ITP (idiopathic thrombocyto Performed By: #### C BCNO, RENAL, MG, [id number], TRAN, PROCRERAT, PTH, URIC #### [facility] [address] [place] [id number] [facility] Parathyroid Hormone Intacton 06-28-2023 Parathyroid Hormone Intact 41.9 pg/mL Normal 12-88 pg/mL [facility] [employer] Other Parathyroid Hormone Intact 41.9 pg/mL Normal 12-88 [facility] Comment on above: Order Comment: Reaso n for Exam HTN (hypertension);Lupus;Chronic ITP (idiopathic thrombocyto Result Comment: PERF ORMED BY: [place] [address] PATHOLOGIST [employer] IVORY BORRERO M.D. Performed By: #### C BCNO, RENAL, MG, [id number], TRAN, PROCRERAT, PTH, URIC #### [facility] [address] [place] [address] [facility] Protein Creat Ratio Ur Rando mon 06-28-2023 Albumin Test strip detection limit <= 20 mg/L (U) [Mass/Vol] 9 mg/dL Normal 0-9 mg/dL [facility] [employer] Other Protein Creat Ratio Ur Random 96.0 mg/dL High 11.0-20.0 mg/dL [facility] [employer] Other Protein Creat Ratio Ur Random 94 mg/g{Cre} Normal 0-200 mg/g{Cre} [facility] [employer] Other Creatinine, Urine (Random) 96.0 mg/dL High 11.0-20.0 [facility] Comment on above: Order Comment: Reaso n for Exam HTN (hypertension);Lupus;Chronic ITP (idiopathic thrombocyto Performed By: #### C BCNO #### [facility] [address] [place] [address] [place] Protein (U) [Mass/Vol] 9 mg/dL Normal 0-9 [facility] Comment on above: Order Comment: Reaso n for Exam HTN (hypertension);Lupus;Chronic ITP (idiopathic thrombocyto Performed By: #### C BCNO #### [facility] [address] [place] [address] [place] Urine Protein/Creatinine Ratio 94 mg/g{Cre} Normal 0-200 [facility] Comment on above: Order Comment: Reaso n for Exam HTN (hypertension);Lupus;Chronic ITP (idiopathic thrombocyto Result Comment: PERF ORMED BY: [facility] [address] [place] [address] PATHOLOGIST [employer] IVORY BORRERO M.D. Performed By: #### C BCNO #### [facility] [address] Renal Function Panelon 06-28 Albumin [Mass/Vol] 3.249053 g/dL Normal 3.5-5.7 g/dL [facility] [employer] Other Calcium [Mass/Vol] 9.0179380 mg/dL Normal 8.6-10 .3 mg/dL [facility] [employer] Other CO2 [Moles/Vol] 26.62386723 mmol/L Normal 21.0-3 1.0 mmol/L [facility] [employer] Other Creatinine [Mass/Vol] 1.00809154 mg/dL Normal 0. 60-1.20 mg/dL [facility] [employer] Other Phosphate [Mass/Vol] 3.6569072 mg/dL Normal 2.5- 4.5 mg/dL [facility] [employer] Other Potassium [Moles/Vol] 4.20104630 mmol/L Normal 3 .5-5.1 mmol/L [facility] [employer] Other Albumin [Mass/Vol] 3.7 g/dL Normal 3.5-5.7 [facility] Comment on above: Order Comment: Reaso n for Exam HTN (hypertension);Lupus;Chronic ITP (idiopathic thrombocyto Performed By: #### C BCNO, RENAL, MG, [id number], TRAN, PROCRERAT, PTH, URIC #### [facility] [address] [place] [id number] [facility] Anion gap [Moles/Vol] 10.5 mmol/L Normal 6.0-15.0 [facility] Comment on above: Order Comment: Reaso n for Exam HTN (hypertension);Lupus;Chronic ITP (idiopathic thrombocyto Performed By: #### C BCNO, RENAL, MG, [id number], TRAN, PROCRERAT, PTH, URIC #### [facility] [address] [place] [id number] [facility] Calcium [Mass/Vol] 9.2 mg/dL Normal 8.6-10.3 [facility] Comment on above: Order Comment: Reaso n for Exam HTN (hypertension);Lupus;Chronic ITP (idiopathic thrombocyto Performed By: #### C BCNO, RENAL, MG, [id number], TRAN, PROCRERAT, PTH, URIC #### [facility] [address] [place] [id number] [place] Chloride [Moles/Vol] 108 mmol/L High 98-107 [facility] [email or web address] Other Comment on above: Order Comment: Reaso n for Exam HTN (hypertension);Lupus;Chronic ITP (idiopathic thrombocyto Performed By: #### C BCNO, RENAL, MG, [id number], TRAN, PROCRERAT, PTH, URIC #### [facility] [address] [place] [address] [facility] CO2 [Moles/Vol] 26.1 mmol/L Normal 21.0-31.0 [facility] Comment on above: Order Comment: Reaso n for Exam HTN (hypertension);Lupus;Chronic ITP (idiopathic thrombocyto Performed By: #### C BCNO, RENAL, MG, [id number], TRAN, PROCRERAT, PTH, URIC #### [facility] [address] [place] [address] [facility] Creatinine [Mass/Vol] 1.13 mg/dL Normal 0.60-1.20 [facility] Comment on above: Order Comment: Reaso n for Exam HTN (hypertension);Lupus;Chronic ITP (idiopathic thrombocyto Performed By: #### C BCNO, RENAL, MG, [id number], TRAN, PROCRERAT, PTH, URIC #### [facility] [address] [place] [address] [place] GFR/1.73 sq M.predicted MDRD (S/P/Bld) [Vol rate/Area] 51.692 mL/min/{1.73_m2} Normal [email or web address] Other Comment on above: Order Comment: Reaso n for Exam HTN (hypertension);Lupus;Chronic ITP (idiopathic thrombocyto Performed By: #### C BCNO, RENAL, MG, [id number], TRAN, PROCRERAT, PTH, URIC #### [facility] [address] Glucose [Mass/Vol] 116 mg/dL High 70-100 [employer] Other Comment on above: Order Comment: Reaso n for Exam HTN (hypertension);Lupus;Chronic ITP (idiopathic thrombocyto Result Comment: [facility] Glucose Reference Range is dependent on time and content of last meal. Glucose of more than 200 mg/dL in a nonstressed, ambulatory subject supports the diagnosis of Diabetes Mellitus. ADA recommended reference range Performed By: #### C BCNO, RENAL, MG, [id number], TRAN, PROCRERAT, PTH, URIC #### [facility] [address] Phosphate [Mass/Vol] 3.1 mg/dL Normal 2.5-4.5 [facility] Comment on above: Order Comment: Reaso n for Exam HTN (hypertension);Lupus;Chronic ITP (idiopathic thrombocyto Performed By: #### C BCNO, RENAL, MG, [id number], TRAN, PROCRERAT, PTH, URIC #### [facility] [address] Potassium [Moles/Vol] 4.6 mmol/L Normal 3.5-5.1 [facility] Comment on above: Order Comment: Reaso n for Exam HTN (hypertension);Lupus;Chronic ITP (idiopathic thrombocyto Performed By: #### C BCNO, RENAL, MG, [id number], TRAN, PROCRERAT, PTH, URIC #### [facility] [address] [place] [id number] [facility] Sodium [Moles/Vol] 140 mmol/L Normal 136-145 [facility] [employer] Other Comment on above: Order Comment: Reaso n for Exam HTN (hypertension);Lupus;Chronic ITP (idiopathic thrombocyto Performed By: #### C BCNO, RENAL, MG, [id number], TRAN, PROCRERAT, PTH, URIC #### [facility] [address] Urea nitrogen [Mass/Vol] 39 mg/dL High 7-25 [facility] [employer] Other Comment on above: Order Comment: Reaso n for Exam HTN (hypertension);Lupus;Chronic ITP (idiopathic thrombocyto Performed By: #### C BCNO, RENAL, MG, [id number], TRAN, PROCRERAT, PTH, URIC #### [facility] [address] [place] [id number] [facility] Uric Acidon 06-28-2023 Urate [Mass/Vol] 6.0238174 mg/dL High 2.3-6.6 mg/dL [facility] [employer] Other Urate [Mass/Vol] 6.8 mg/dL High 2.3-6.6 [facility] Comment on above: Order Comment: Reaso n for Exam HTN (hypertension);Lupus;Chronic ITP (idiopathic thrombocyto Performed By: #### C BCNO, RENAL, MG, [id number], TRAN, PROCRERAT, PTH, URIC #### [facility] [address] [place] [address] [facility] Vitamin D 25 Hydroxy Totalon 06-28-2023 Vitamin D 25 Hydroxy Total 11.8 ng/mL Low 30-100 ng/mL [facility] [employer] Other Vitamin D 25 Hydroxy Total 11.8 ng/mL Low 30-100 [facility] Comment on above: Order Comment: Reaso n for Exam HTN (hypertension);Lupus;Chronic ITP (idiopathic thrombocyto Result Comment: JENNIFER MIN D STATUS 25(OH)VITAMIN D RANGE (ng/mL) Deficient <20 Insufficient 20 to <30 Sufficient 30 to 100 Reference: Sunita MF,Adarsh NC, Clara-Natan VELAZQUEZ, et al. Evaluation,treatment, and prevention of vitamin D deficiency; an Endocrine Society clinical practice guideline. JCEM. 2010; 96(7):1911-30. PERFORMED BY: [place] [address] PATHOLOGIST [employer] IVORY BORRERO M.D. Performed By: #### C BCNO #### [address] [place] [address] [facility] CBC W Auto Differential pane l (Bld)on 06-05-2023 Basophils (Bld) [#/Vol] 10*3/uL Normal <0.11 C [facility] Comment on above: Order Comment: Speci men Type: BLOOD SPECIMENOrdering Facility: [facility] Address: [address] [place] [address] Performed By: #### 5 7021-8 ####[facility] LABCLIA [id number] [place] [address] Basophils/100 WBC (Bld) 0.2 % Normal C [facility] Comment on above: Order Comment: Speci men Type: BLOOD SPECIMENOrdering Facility: [facility] Address: [address] [place] [address] Performed By: #### 5 7021-8 ####[facility] LABCLIA [id number] [place] [address] Differential cell count method Nom (Bld) Auto Normal [facility] Comment on above: Order Comment: Speci men Type: BLOOD SPECIMENOrdering Facility: [facility] Address: [address] [place] [address] Performed By: #### 5 7021-8 ####[facility] LABCLIA [id number] [place] [address] Eosinophils (Bld) [#/Vol] 0.04 10*3/uL Normal <0.46 [facility] Comment on above: Order Comment: Speci men Type: BLOOD SPECIMENOrdering Facility: [facility] Address: [address] [place] [address] Performed By: #### 5 7021-8 ####[facility] LABCLIA [id number] [place] [address] Eosinophils/100 WBC (Bld) 0.9 % Normal [facility] Comment on above: Order Comment: Speci men Type: BLOOD SPECIMENOrdering Facility: [facility] Address: [address] [place] [address] Performed By: #### 5 7021-8 ####[facility] LABCLIA [id number] [place] [address] Erythrocyte distribution width (RBC) [Ratio] 14.4 % Normal 11.5-15.0 [facility] Comment on above: Order Comment: Speci men Type: BLOOD SPECIMENOrdering Facility: [facility] Address: [address] [place] [address] Performed By: #### 5 7021-8 ####[facility] LABCLIA [id number] [place] [address] Hematocrit (Bld) [Volume fraction] 34.0 % Low 36.0-46.0 [facility] Comment on above: Order Comment: Speci men Type: BLOOD SPECIMENOrdering Facility: [facility] Address: [address] [place] [address] Performed By: #### 5 7021-8 ####[facility] LABCLIA [id number] [place] [address] Hemoglobin (Bld) [Mass/Vol] 11.0 g/dL Low 11.5-15.5 [facility] Comment on above: Order Comment: Speci men Type: BLOOD SPECIMENOrdering Facility: [facility] Address: [address] [place] [address] Performed By: #### 5 7021-8 ####[facility] LABCLIA [id number] [place] [address] Immature granulocytes (Bld) [#/Vol] 10*3/uL Normal <0.10 [facility] Comment on above: Order Comment: Speci men Type: BLOOD SPECIMENOrdering Facility: [facility] Address: [address] [place] [address] Performed By: #### 5 7021-8 ####[facility] LABCLIA [id number] [place] [address] Immature granulocytes/100 WBC (Bld) 0.2 % Normal [facility] Comment on above: Order Comment: Speci men Type: BLOOD SPECIMENOrdering Facility: [facility] Address: [address] [place] [address] Performed By: #### 5 7021-8 ####[facility] LABCLIA [id number] [place] [address] Lymphocytes (Bld) [#/Vol] 2.31 10*3/uL Normal 1.00-4.00 [facility] Comment on above: Order Comment: Speci men Type: BLOOD SPECIMENOrdering Facility: [facility] Address: [address] [place] [address] Performed By: #### 5 7021-8 ####[facility] LABCLIA [id number] [place] [address] Lymphocytes/100 WBC (Bld) 49.8 % Normal [facility] Comment on above: Order Comment: Speci men Type: BLOOD SPECIMENOrdering Facility: [facility] Address: [address] [place] [address] Performed By: #### 5 7021-8 ####[facility] LABCLIA [id number] [place] [address] MCH (RBC) [Entitic mass] 31.5 pg Normal 26.0-34.0 [facility] Comment on above: Order Comment: Speci men Type: BLOOD SPECIMENOrdering Facility: [facility] Address: [address] [place] [address] Performed By: #### 5 7021-8 ####[facility] LABCLIA [id number] [place] [address] MCHC (RBC) [Mass/Vol] 32.4 g/dL Normal 30.5-36.0 [facility] Comment on above: Order Comment: Speci men Type: BLOOD SPECIMENOrdering Facility: [facility] Address: [address] [place] [address] Performed By: #### 5 7021-8 ####[facility] LABCLIA [id number] [place] [address] MCV (RBC) [Entitic vol] 97.4 fL Normal 80.0-100.0 [facility] Comment on above: Order Comment: Speci men Type: BLOOD SPECIMENOrdering Facility: [facility] Address: [address] [place] [address] Performed By: #### 5 7021-8 ####[facility] LABCLIA [id number] [place] [address] Monocytes (Bld) [#/Vol] 0.24 10*3/uL Normal <0.87 [facility] Comment on above: Order Comment: Speci men Type: BLOOD SPECIMENOrdering Facility: [facility] Address: [address] [place] [address] Performed By: #### 5 7021-8 ####[facility] LABIA [id number] [place] [address] Monocytes/100 WBC (Bld) 5.2 % Normal [facility] Comment on above: Order Comment: Speci men Type: BLOOD SPECIMENOrdering Facility: [facility] Address: [address] [place] [address] Performed By: #### 5 7021-8 ####[facility] LABCLIA [id number] [place] [address] Neutrophils (Bld) [#/Vol] 2.03 10*3/uL Normal 1.45-7.50 [facility] Comment on above: Order Comment: Speci men Type: BLOOD SPECIMENOrdering Facility: [facility] Address: [address] [place] [address] Performed By: #### 5 7021-8 ####[facility] LABIA [id number] [place] [address] Neutrophils/100 WBC (Bld) 43.7 % Normal [facility] Comment on above: Order Comment: Speci men Type: BLOOD SPECIMENOrdering Facility: [facility] Address: [address] [place], [place] [address] Performed By: #### 5 7021-8 ####[facility] LABCLIA [id number] [place] [address] Nucleated RBC (Bld) [#/Vol] 10*3/uL Normal <0.01 [facility] Comment on above: Order Comment: Speci men Type: BLOOD SPECIMENOrdering Facility: [facility] Address: [address] [place] [address] Performed By: #### 5 7021-8 ####[facility] LABCLIA [id number] [place] [address] Nucleated RBC/100 WBC (Bld) [Ratio] 0.0 /100 WBC Normal [facility] Comment on above: Order Comment: Speci men Type: BLOOD SPECIMENOrdering Facility: [facility] Address: [address] [place] [address] Performed By: #### 5 7021-8 ####[facility] LABCLIA [id number] [place] [address] Platelet mean volume (Bld) [Entitic vol] 9.5 fL Normal 9.0-12.7 [facility] Comment on above: Order Comment: Speci men Type: BLOOD SPECIMENOrdering Facility: [facility] Address: [address] [place] [address] Performed By: #### 5 7021-8 ####[facility] LABCLIA [id number] [place] [address] Platelets (Bld) [#/Vol] 137 10*3/uL Low 150-400 [facility] Comment on above: Order Comment: Speci men Type: BLOOD SPECIMENOrdering Facility: [facility] Address: [address] [place] [address] Performed By: #### 5 7021-8 ####[facility] LABCLIA [id number] [place] [address] RBC (Bld) [#/Vol] 3.49 10*6/uL Low 3.90-5.20 [facility] Comment on above: Order Comment: Speci men Type: BLOOD SPECIMENOrdering Facility: [facility] Address: [address] [place] [address] Performed By: #### 5 7021-8 ####[facility] LABCLIA [id number] [place] [address] WBC (Bld) [#/Vol] 4.64 10*3/uL Normal 3.70-11.00 [facility] Comment on above: Order Comment: Speci men Type: BLOOD SPECIMENOrdering Facility: [facility] Address: [address] [place] [address] Performed By: #### 5 7021-8 ####[facility] LABIA [id number] [place] [address] CNOVSPon 06-05-2023 CNOVSP Normal [facility] Comprehensive metabolic 2000 panelon 06-05-2023 Albumin [Mass/Vol] 3.9 g/dL Normal 3.9-4.9 [facility] Comment on above: Order Comment: Speci men Type: BLOOD SPECIMENOrdering Facility: [facility] Address: [address] [place] [address] Performed By: #### 2 4323-8 ####[facility] LABIA [id number] [place] [address] ALP [Catalytic activity/Vol] 64 U/L Normal 34-123 [facility] Comment on above: Order Comment: Speci men Type: BLOOD SPECIMENOrdering Facility: [facility] Address: [address] [place] [address] Performed By: #### 2 4323-8 ####[facility] LABIA [id number] [place] [address] ALT [Catalytic activity/Vol] 20 U/L Normal 7-38 [facility] Comment on above: Order Comment: Speci men Type: BLOOD SPECIMENOrdering Facility: [facility] Address: [address] [place] [address] Performed By: #### 2 4323-8 ####[facility] LABCLIA [id number] [place] [address] Anion gap [Moles/Vol] 9 mmol/L Normal 9-18 [facility] Comment on above: Order Comment: Speci men Type: BLOOD SPECIMENOrdering Facility: [facility] Address: [address] [place] [address] Performed By: #### 2 4323-8 ####[facility] LABCLIA [id number] [place] [address] AST [Catalytic activity/Vol] 25 U/L Normal 13-35 [facility] Comment on above: Order Comment: Speci men Type: BLOOD SPECIMENOrdering Facility: [facility] Address: [address] [place] [address] Performed By: #### 2 4323-8 ####[facility] LABCLIA [id number] [place] [address] Bilirubin [Mass/Vol] 0.5 mg/dL Normal 0.2-1.3 [facility] Comment on above: Order Comment: Speci men Type: BLOOD SPECIMENOrdering Facility: [facility] Address: [address] [place] [address] Performed By: #### 2 4323-8 ####[facility] LABCLIA [id number] [place] [address] Calcium [Mass/Vol] 9.8 mg/dL Normal 8.5-10.2 [facility] Comment on above: Order Comment: Speci men Type: BLOOD SPECIMENOrdering Facility: [facility] Address: [address] [place] [address] Performed By: #### 2 4323-8 ####[facility] LABCLIA [id number] [place] [address] Chloride [Moles/Vol] 107 mmol/L High 97-105 [facility] Comment on above: Order Comment: Speci men Type: BLOOD SPECIMENOrdering Facility: [facility] Address: [address] [place] [address] Performed By: #### 2 4323-8 ####[facility] LABCLIA [id number] [place] [address] CO2 [Moles/Vol] 22 mmol/L Normal 22-30 [facility] Comment on above: Order Comment: Speci men Type: BLOOD SPECIMENOrdering Facility: [facility] Address: [address] [place] [address] Performed By: #### 2 4323-8 ####[facility] LABCLIA [id number] [place] [address] Creatinine [Mass/Vol] 1.14 mg/dL High 0.58-0.96 [facility] Comment on above: Order Comment: Speci men Type: BLOOD SPECIMENOrdering Facility: [facility] Address: [address] [place] [address] Performed By: #### 2 4323-8 ####[facility] LABCLIA [id number] [place] [address] Creatinine and Glomerular filtration rate.predicted panel (S/P/Bld) 51 mL/min/1.73m??? Low >=60 [facility] Comment on above: Order Comment: Speci men Type: BLOOD SPECIMENOrdering Facility: [facility] Address: [address] [place] [address] Result Comment: Miryam mated Glomerular Filtration Rate [...] actual GFR. Performed By: #### 2 4323-8 ####[facility] LABCLIA [id number] [place] [address] Glucose [Mass/Vol] 113 mg/dL High 74-99 [facility] Comment on above: Order Comment: Speci men Type: BLOOD SPECIMENOrdering Facility: [facility] Address: [address] [place] [address] Result Comment: The [place] [employer] (ADA) provides guidance for cutoff values for fasting glucose and random glucose. The ADA defines fasting as no caloric intake for at least 8 hours. Fasting plasma glucose results between 100 to 125 mg/dL indicate increased risk for diabetes (prediabetes).Fasting plasma glucose results greater than or equal to 126 mg/dL meet the criteria for diagnosis of diabetes. In the absence of unequivocal hyperglycemia, results should be confirmed by repeat testing. In a patient with classic symptoms of hyperglycemia or hyperglycemic crisis, random plasma glucose results greater than or equal to 200 mg/dL meet the criteria for diagnosis of diabetes.Reference: Standards of Medical Care in Diabetes 2016, [place] [employer]. Diabetes Care. 2016.39(Suppl 1). Performed By: #### 2 4323-8 ####[facility] LABCLIA [id number] [place] [address] Potassium [Moles/Vol] 4.5 mmol/L Normal 3.7-5.1 [facility] Comment on above: Order Comment: Speci men Type: BLOOD SPECIMENOrdering Facility: [facility] Address: [address] [place] [address] Performed By: #### 2 4323-8 ####[facility] LABCLIA [id number] [place] [address] Protein [Mass/Vol] 7.5 g/dL Normal 6.3-8.0 [facility] Comment on above: Order Comment: Speci men Type: BLOOD SPECIMENOrdering Facility: [facility] Address: [address] [place] [address] Performed By: #### 2 4323-8 ####[facility] LABCLIA [id number] [place] [address] Sodium [Moles/Vol] 138 mmol/L Normal 136-144 [facility] Comment on above: Order Comment: Speci men Type: BLOOD SPECIMENOrdering Facility: [facility] Address: [address] [place] [address] Performed By: #### 2 4323-8 ####[facility] LABCLIA [id number] [place] [address] Urea nitrogen [Mass/Vol] 39 mg/dL High 7-21 [facility] Comment on above: Order Comment: Speci men Type: BLOOD SPECIMENOrdering Facility: [facility] Address: [address] [place] [address] Performed By: #### 2 4323-8 ####[facility] LABCLIA [id number] [place] [address] Ferritin SerPl-mCncon 2022 Ferritin [Mass/Vol] 104.0 ng/mL Normal 14.7-205.1 [facility] Comment on above: Order Comment: Speci men Type: BLOOD SPECIMENOrdering Facility: [facility] Address: [address] [place] [address] Performed By: #### 5 0190-8, 2-9, 6-4, 2283-8 ####[facility] LABIA [id number] [place] [address] [place] Folate SerPl-mCncon 06-05-20 Folate [Mass/Vol] 6.3 ng/mL Normal >4.7 [facility] Comment on above: Order Comment: Speci men Type: BLOOD SPECIMENOrdering Facility: [facility] Address: [address] [place] [address] Performed By: #### 5 0190-8, 2132-9, 6-4, 2284-8 ####[facility] LABIA [id number] [place] [address] [place] Iron and Iron binding capaci ty panelon 06-05-2023 Iron [Mass/Vol] 63 ug/dL Normal 41-186 [facility] Comment on above: Order Comment: Speci men Type: BLOOD SPECIMENOrdering Facility: [facility] Address: [address] [place] [id number] Performed By: #### 5 0190-8, 9, 2275-10, 2284-02 ####[facility] LABCLIA [id number] [address] [address] [place] Iron binding capacity [Mass/Vol] 344 ug/dL Normal 232-386 [facility] Comment on above: Order Comment: Speci men Type: BLOOD SPECIMENOrdering Facility: [facility] Address: [address] [place] [address] Performed By: #### 5 0190-8, 2132-03, 2275-10, 2284-02 ####[facility] LABCLIA [id number] [place] [id number] [place] Iron/TIBC [Molar ratio] 18.3 % Normal 15.0-57.0 C [facility] Comment on above: Order Comment: Speci men Type: BLOOD SPECIMENOrdering Facility: [facility] Address: [address] [place] [address] Performed By: #### 5 0190-8, 9, 2275-10, 2284-02 ####[facility] LABIA [id number] [place] [id number] [place] Vit B12 [facility] 11-27-2 023 Cobalamin (Vitamin B12) [Mass/Vol] 443 pg/mL Normal 232-1245 [facility] Comment on above: Order Comment: Speci men Type: BLOOD SPECIMENOrdering Facility: [facility] Address: [address] [place] [address] Performed By: #### 5 0190-8, 9, 2275-10, 2284-02 ####[facility] LABCLIA [id number] [place] [id number] [place] CBC W Auto Differential pane l (Bld)on 04-20-2023 Basophils (Bld) [#/Vol] 10*3/uL Normal <0.11 [facility] Comment on above: Order Comment: Speci men Type: BLOOD SPECIMENOrdering Facility: [facility] Address: [address] [place] [address] Performed By: #### 5 7021-8 ####[facility] LABCLIA [id number] [place] [address] Basophils/100 WBC (Bld) 0.2 % Normal [facility] Comment on above: Order Comment: Speci men Type: BLOOD SPECIMENOrdering Facility: [facility] Address: [address] [place] [address] Performed By: #### 5 7021-8 ####[facility] LABCLIA [id number] [place] [address] Differential cell count method Nom (Bld) Auto Normal [facility] Comment on above: Order Comment: Speci men Type: BLOOD SPECIMENOrdering Facility: [facility] Address: [address] [place] [address] Performed By: #### 5 7021-8 ####[facility] LABCLIA [id number] [place] [address] Eosinophils (Bld) [#/Vol] 0.04 10*3/uL Normal <0.46 [facility] Comment on above: Order Comment: Speci men Type: BLOOD SPECIMENOrdering Facility: [facility] Address: [address] [place] [address] Performed By: #### 5 7021-8 ####[facility] LABCLIA [id number] [place] [address] Eosinophils/100 WBC (Bld) 0.8 % Normal [facility] Comment on above: Order Comment: Speci men Type: BLOOD SPECIMENOrdering Facility: [facility] Address: [address] [place] [address] Performed By: #### 5 7021-8 ####[facility] LABCLIA [id number] [place] [address] Erythrocyte distribution width (RBC) [Ratio] 14.7 % Normal 11.5-15.0 [facility] Comment on above: Order Comment: Speci men Type: BLOOD SPECIMENOrdering Facility: [facility] Address: [address] [place] [address] Performed By: #### 5 7021-8 ####[facility] LABCLIA [id number] [place] [address] Hematocrit (Bld) [Volume fraction] 34.1 % Low 36.0-46.0 [facility] Comment on above: Order Comment: Speci men Type: BLOOD SPECIMENOrdering Facility: [facility] Address: [address] [place] [address] Performed By: #### 5 7021-8 ####[facility] LABCLIA [id number] [place] [address] Hemoglobin (Bld) [Mass/Vol] 10.9 g/dL Low 11.5-15.5 [facility] Comment on above: Order Comment: Speci men Type: BLOOD SPECIMENOrdering Facility: [facility] Address: [address] [place] [address] Performed By: #### 5 7021-8 ####[facility] LABCLIA [id number] [place] [address] Immature granulocytes (Bld) [#/Vol] 10*3/uL Normal <0.10 [facility] Comment on above: Order Comment: Speci men Type: BLOOD SPECIMENOrdering Facility: [facility] Address: [address] [place] [address] Performed By: #### 5 7021-8 ####[facility] LABCLIA [id number] [place] [address] Immature granulocytes/100 WBC (Bld) 0.4 % Normal [facility] Comment on above: Order Comment: Speci men Type: BLOOD SPECIMENOrdering Facility: [facility] Address: [address] [place] [address] Performed By: #### 5 7021-8 ####[facility] LABCLIA [id number] [place] [address] Lymphocytes (Bld) [#/Vol] 2.49 10*3/uL Normal 1.00-4.00 [facility] Comment on above: Order Comment: Speci men Type: BLOOD SPECIMENOrdering Facility: [facility] Address: [address] [place] [address] Performed By: #### 5 7021-8 ####[facility] LABCLIA [id number] [place] [address] Lymphocytes/100 WBC (Bld) 51.0 % Normal [facility] Comment on above: Order Comment: Speci men Type: BLOOD SPECIMENOrdering Facility: [facility] Address: [address] [place] [address] Performed By: #### 5 7021-8 ####[facility] LABCLIA [id number] [place] [address] MCH (RBC) [Entitic mass] 31.0 pg Normal 26.0-34.0 [facility] Comment on above: Order Comment: Speci men Type: BLOOD SPECIMENOrdering Facility: [facility] Address: [address] [place] [address] Performed By: #### 5 7021-8 ####[facility] LABCLIA [id number] [place] [address] MCHC (RBC) [Mass/Vol] 32.0 g/dL Normal 30.5-36.0 [facility] Comment on above: Order Comment: Speci men Type: BLOOD SPECIMENOrdering Facility: [facility] Address: [address] [place] [address] Performed By: #### 5 7021-8 ####[facility] LABCLIA [id number] [place] [address] MCV (RBC) [Entitic vol] 96.9 fL Normal 80.0-100.0 C [facility] Comment on above: Order Comment: Speci men Type: BLOOD SPECIMENOrdering Facility: [facility] Address: [address] [place] [address] Performed By: #### 5 7021-8 ####[facility] LABCLIA [id number] [place] [address] Monocytes (Bld) [#/Vol] 0.26 10*3/uL Normal <0.87 [facility] Comment on above: Order Comment: Speci men Type: BLOOD SPECIMENOrdering Facility: [facility] Address: [address] [place] [address] Performed By: #### 5 7021-8 ####[facility] LABCLIA [id number] [place] [address] Monocytes/100 WBC (Bld) 5.3 % Normal C [facility] Comment on above: Order Comment: Speci men Type: BLOOD SPECIMENOrdering Facility: [facility] Address: [address] [place] [address] Performed By: #### 5 7021-8 ####[facility] LABCLIA [id number] [place] [address] Neutrophils (Bld) [#/Vol] 2.06 10*3/uL Normal 1.45-7.50 [facility] Comment on above: Order Comment: Speci men Type: BLOOD SPECIMENOrdering Facility: [facility] Address: [address] [place] [address] Performed By: #### 5 7021-8 ####[facility] LABCLIA [id number] [place] [address] Neutrophils/100 WBC (Bld) 42.3 % Normal [facility] Comment on above: Order Comment: Speci men Type: BLOOD SPECIMENOrdering Facility: [facility] Address: [address] [place] [address] Performed By: #### 5 7021-8 ####[facility] LABCLIA [id number] [place] [address] Nucleated RBC (Bld) [#/Vol] 10*3/uL Normal <0.01 [facility] Comment on above: Order Comment: Speci men Type: BLOOD SPECIMENOrdering Facility: [facility] Address: [address] [place] [address] Performed By: #### 5 7021-8 ####[facility] LABCLIA [id number] [place] [address] Nucleated RBC/100 WBC (Bld) [Ratio] 0.0 /100 WBC Normal [facility] Comment on above: Order Comment: Speci men Type: BLOOD SPECIMENOrdering Facility: [facility] Address: [address] [place] [address] Performed By: #### 5 7021-8 ####[facility] LABCLIA [id number] [place] [address] Platelet mean volume (Bld) [Entitic vol] 9.3 fL Normal 9.0-12.7 [facility] Comment on above: Order Comment: Speci men Type: BLOOD SPECIMENOrdering Facility: [facility] Address: [address] [place] [address] Performed By: #### 5 7021-8 ####[facility] LABCLIA [id number] [place] [address] Platelets (Bld) [#/Vol] 127 10*3/uL Low 150-400 [facility] Comment on above: Order Comment: Speci men Type: BLOOD SPECIMENOrdering Facility: [facility] Address: [address] [place] [address] Performed By: #### 5 7021-8 ####[facility] LABCLIA [id number] [place] [address] RBC (Bld) [#/Vol] 3.52 10*6/uL Low 3.90-5.20 [facility] Comment on above: Order Comment: Speci men Type: BLOOD SPECIMENOrdering Facility: [facility] Address: [address] [place] [address] Performed By: #### 5 7021-8 ####[facility] LABCLIA [id number] [place] [address] WBC (Bld) [#/Vol] 4.88 10*3/uL Normal 3.70-11.00 [facility] Comment on above: Order Comment: Speci men Type: BLOOD SPECIMENOrdering Facility: [facility] [facility] Address: [address] [place] [address] Performed By: #### 5 7021-8 ####[facility] LABCLIA [id number] [place] [address] CNOVSPon 04-20-2023 CNOVSP Normal [facility] metabolic 2000 panelon 04-20-2023 Albumin [Mass/Vol] 3.9 g/dL Normal 3.9-4.9 [facility] Comment on above: Order Comment: Speci men Type: BLOOD SPECIMENOrdering Facility: [facility] Address: [address] [place] [address] Performed By: #### 2 4323-8, 2532-0 ####[facility] LABCLIA [id number] [place] [address] [place] ALP [Catalytic activity/Vol] 67 U/L Normal 34-123 [facility] Comment on above: Order Comment: Speci men Type: BLOOD SPECIMENOrdering Facility: [facility] Address: [address] [place] [address] Performed By: #### 2 4323-8, 2532-0 ####[facility] LABCLIA [id number] [place] [address] [place] ALT [Catalytic activity/Vol] 23 U/L Normal 7-38 [facility] Comment on above: Order Comment: Speci men Type: BLOOD SPECIMENOrdering Facility: [facility] Address: [address] [place] [address] Performed By: #### 2 4323, 2532-0 ####[facility] LABCLIA [id number] [place] [address] [place] Anion gap [Moles/Vol] 11 mmol/L Normal 9-18 [facility] Comment on above: Order Comment: Speci men Type: BLOOD SPECIMENOrdering Facility: [facility] Address: [address] [place] [address] Performed By: #### 2 43209-14, 0 ####[facility] LABCLIA [id number] [place] [address] [place] AST [Catalytic activity/Vol] 38 U/L High 13-35 [facility] Comment on above: Order Comment: Speci men Type: BLOOD SPECIMENOrdering Facility: [facility] Address: [address] [place] [address] Performed By: #### 2 4323-02, 0 ####[facility] LABCLIA [id number] [place] [address] [place] Bilirubin [Mass/Vol] 0.6 mg/dL Normal 0.2-1.3 [facility] Comment on above: Order Comment: Speci men Type: BLOOD SPECIMENOrdering Facility: [facility] Address: [address] [place] [address] Performed By: #### 2 43209-14, 0 ####[facility] LABCLIA [id number] [place] [address] [place] Calcium [Mass/Vol] 10.2 mg/dL Normal 8.5-10.2 [facility] Comment on above: Order Comment: Speci men Type: BLOOD SPECIMENOrdering Facility: [facility] Address: [address] [place] [address] Performed By: #### 2 4328, 2531-0 ####[facility] LABCLIA [id number] [place] [address] [place] Chloride [Moles/Vol] 102 mmol/L Normal 97-105 [facility] Comment on above: Order Comment: Speci men Type: BLOOD SPECIMENOrdering Facility: [facility] Address: [address] [place] [address] Performed By: #### 2 4323-8, 2531-0 ####[facility] LABCLIA [id number] [place] [address] [place] CO2 [Moles/Vol] 27 mmol/L Normal 22-30 [facility] Comment on above: Order Comment: Speci men Type: BLOOD SPECIMENOrdering Facility: [facility] Address: [address] [place] [address] Performed By: #### 2 4323-8, 2531-0 ####[facility] LABCLIA [id number] [place] [address] [place] Creatinine [Mass/Vol] 1.05 mg/dL High 0.58-0.96 [facility] Comment on above: Order Comment: Speci men Type: BLOOD SPECIMENOrdering Facility: [facility] Address: [address] [place] [address] Performed By: #### 2 4323-8, 0 ####[facility] LABIA [id number] [place] [address] [place] Creatinine and Glomerular filtration rate.predicted panel (S/P/Bld) 57 mL/min/1.73m??? Low >=60 [facility] Comment on above: Order Comment: Speci men Type: BLOOD SPECIMENOrdering Facility: [facility] Address: [address] [place] [address] Result Comment: Miryam mated Glomerular Filtration Rate [...] reflect actual GFR. Performed By: #### 2 43238, 0 ####[facility] LABCLIA [id number] [place] [address] [place] Glucose [Mass/Vol] 134 mg/dL High 74-99 [facility] Comment on above: Order Comment: Speci men Type: BLOOD SPECIMENOrdering Facility: [facility] Address: [address] [place] [address] Result Comment: The [place] [employer] (ADA) provides guidance for cutoff values for fasting glucose and random glucose. The ADA defines fasting as no caloric intake for at least 8 hours. Fasting plasma glucose results between 100 to 125 mg/dL indicate increased risk for diabetes (prediabetes).Fasting plasma glucose results greater than or equal to 126 mg/dL meet the criteria for diagnosis of diabetes. In the absence of unequivocal hyperglycemia, results should be confirmed by repeat testing. In a patient with classic symptoms of hyperglycemia or hyperglycemic crisis, random plasma glucose results greater than or equal to 200 mg/dL meet the criteria for diagnosis of diabetes.Reference: Standards of Medical Care in Diabetes 2016, [place] [employer]. Diabetes Care. 2016.39(Suppl 1). Performed By: #### 2 4328, 0 ####[facility] LABIA [id number] [place] [address] [place] Potassium [Moles/Vol] 4.9 mmol/L Normal 3.7-5.1 [facility] Comment on above: Order Comment: Speci men Type: BLOOD SPECIMENOrdering Facility: [facility] Address: [address] [place] [address] Performed By: #### 2 4323-8, 0 ####[facility] LABIA [id number] [place] [address] [place] Protein [Mass/Vol] 7.4 g/dL Normal 6.3-8.0 [facility] Comment on above: Order Comment: Speci men Type: BLOOD SPECIMENOrdering Facility: [facility] Address: [address] [place] [address] Performed By: #### 2 4323-8, 2531-0 ####[facility] LABCLIA [id number] [address] [address] [place] Sodium [Moles/Vol] 140 mmol/L Normal 136-144 [facility] Comment on above: Order Comment: Speci men Type: BLOOD SPECIMENOrdering Facility: [facility] Address: [address] [place] [address] Performed By: #### 2 4323-8, 2531-0 ####[facility] LABIA [id number] [place] [address] [place] Urea nitrogen [Mass/Vol] 26 mg/dL High 7-21 [facility] Comment on above: Order Comment: Speci men Type: BLOOD SPECIMENOrdering Facility: [facility] Address: [address] [place] [address] Performed By: #### 2 4328, 2531-0 ####[facility] LABIA [id number] [place] [address] [place] LDH SerPl-cCncon 04-20-2023 LDH [Catalytic activity/Vol] 328 U/L High 135-214 [facility] Comment on above: Order Comment: Speci men Type: BLOOD SPECIMENOrdering Facility: [facility] Address: [address] [place] [address] Performed By: #### 2 43238, 2531-0 ####[facility] LABIA [id number] [place] [id number] [place] CNPNon 04-19-2023 CNPN Normal [facility] CBC W Auto Differential pane l (Bld)on 03-09-2023 Basophils (Bld) [#/Vol] 10*3/uL Normal <0.11 C [facility] Comment on above: Order Comment: Speci men Type: BLOOD SPECIMENOrdering Facility: [facility] Address: [address] [place], [place] [address] Performed By: #### 5 7021-8 ####[facility] LABCLIA [id number] [place] [address] Basophils/100 WBC (Bld) 0.2 % Normal [facility] Comment on above: Order Comment: Speci men Type: BLOOD SPECIMENOrdering Facility: [facility] Address: [address] [place] [address] Performed By: #### 5 7021-8 ####[facility] LABCLIA [id number] [place] [address] Differential cell count method Nom (Bld) Auto Normal [facility] Comment on above: Order Comment: Speci men Type: BLOOD SPECIMENOrdering Facility: [facility] Address: [address] [place] [address] Performed By: #### 5 7021-8 ####[facility] LABCLIA [id number] [place] [address] Eosinophils (Bld) [#/Vol] 0.04 10*3/uL Normal <0.46 [facility] Comment on above: Order Comment: Speci men Type: BLOOD SPECIMENOrdering Facility: [facility] Address: [address] [place] [address] Performed By: #### 5 7021-8 ####[facility] LABCLIA [id number] [place] [address] Eosinophils/100 WBC (Bld) 0.8 % Normal [facility] Comment on above: Order Comment: Speci men Type: BLOOD SPECIMENOrdering Facility: [facility] Address: [address] [place] [address] Performed By: #### 5 7021-8 ####[facility] LABIA [id number] [place] [address] Erythrocyte distribution width (RBC) [Ratio] 14.3 % Normal 11.5-15.0 [facility] Comment on above: Order Comment: Speci men Type: BLOOD SPECIMENOrdering Facility: [facility] Address: [address] [place] [address] Performed By: #### 5 7021-8 ####[facility] LABCLIA [id number] [place] [address] Hematocrit (Bld) [Volume fraction] 34.9 % Low 36.0-46.0 [facility] Comment on above: Order Comment: Speci men Type: BLOOD SPECIMENOrdering Facility: [facility] Address: [address] [place] [address] Performed By: #### 5 7021-8 ####[facility] LABCLIA [id number] [place] [address] Hemoglobin (Bld) [Mass/Vol] 11.1 g/dL Low 11.5-15.5 [facility] Comment on above: Order Comment: Speci men Type: BLOOD SPECIMENOrdering Facility: [facility] Address: [address] [place] [address] Performed By: #### 5 7021-8 ####[facility] LABIA [id number] [place] [address] Immature granulocytes (Bld) [#/Vol] 10*3/uL Normal <0.10 [facility] Comment on above: Order Comment: Speci men Type: BLOOD SPECIMENOrdering Facility: [facility] Address: [address] [place] [address] Performed By: #### 5 7021-8 ####[facility] LABCLIA [id number] [place] [address] Immature granulocytes/100 WBC (Bld) 0.2 % Normal [facility] Comment on above: Order Comment: Speci men Type: BLOOD SPECIMENOrdering Facility: [facility] Address: [address] [place] [address] Performed By: #### 5 7021-8 ####[facility] LABCLIA [id number] [place] [address] Lymphocytes (Bld) [#/Vol] 2.36 10*3/uL Normal 1.00-4.00 [facility] Comment on above: Order Comment: Speci men Type: BLOOD SPECIMENOrdering Facility: [facility] Address: [address] [place] [address] Performed By: #### 5 7021-8 ####[facility] LABCLIA [id number] [place] [address] Lymphocytes/100 WBC (Bld) 49.2 % Normal [facility] Comment on above: Order Comment: Speci men Type: BLOOD SPECIMENOrdering Facility: [facility] Address: [address] [place] [address] Performed By: #### 5 7021-8 ####[facility] LABCLIA [id number] [place] [address] MCH (RBC) [Entitic mass] 30.6 pg Normal 26.0-34.0 [facility] Comment on above: Order Comment: Speci men Type: BLOOD SPECIMENOrdering Facility: [facility] Address: [address] [place] [address] Performed By: #### 5 7021-8 ####[facility] LABCLIA [id number] [place] [address] MCHC (RBC) [Mass/Vol] 31.8 g/dL Normal 30.5-36.0 [facility] Comment on above: Order Comment: Speci men Type: BLOOD SPECIMENOrdering Facility: [facility] Address: [address] [place] [address] Performed By: #### 5 7021-8 ####[facility] LABCLIA [id number] [place] [address] MCV (RBC) [Entitic vol] 96.1 fL Normal 80.0-100.0 C [facility] Comment on above: Order Comment: Speci men Type: BLOOD SPECIMENOrdering Facility: [facility] Address: [address] [place] [address] Performed By: #### 5 7021-8 ####[facility] LABCLIA [id number] [place] [address] Monocytes (Bld) [#/Vol] 0.22 10*3/uL Normal <0.87 [facility] Comment on above: Order Comment: Speci men Type: BLOOD SPECIMENOrdering Facility: [facility] Address: [address] [place] [place] [address] Performed By: #### 5 7021-8 ####[facility] LABCLIA [id number] [place] [address] Monocytes/100 WBC (Bld) 4.6 % Normal [facility] Comment on above: Order Comment: Speci men Type: BLOOD SPECIMENOrdering Facility: [facility] Address: [address] [place] [address] Performed By: #### 5 7021-8 ####[facility] LABCLIA [id number] [place] [address] Neutrophils (Bld) [#/Vol] 2.16 10*3/uL Normal 1.45-7.50 [facility] Comment on above: Order Comment: Speci men Type: BLOOD SPECIMENOrdering Facility: [facility] Address: [address] [place] [place] [address] Performed By: #### 5 7021-8 ####[facility] LABCLIA [id number] [place] [address] Neutrophils/100 WBC (Bld) 45.0 % Normal [facility] Comment on above: Order Comment: Speci men Type: BLOOD SPECIMENOrdering Facility: [facility] Address: [address] [place] [address] Performed By: #### 5 7021-8 ####[facility] LABCLIA [id number] [place] [address] Nucleated RBC (Bld) [#/Vol] 10*3/uL Normal <0.01 [facility] Comment on above: Order Comment: Speci men Type: BLOOD SPECIMENOrdering Facility: [facility] Address: [address] [place] [place] [address] Performed By: #### 5 7021-8 ####[facility] LABCLIA [id number] [place] [address] Nucleated RBC/100 WBC (Bld) [Ratio] 0.0 /100 WBC Normal [facility] Comment on above: Order Comment: Speci men Type: BLOOD SPECIMENOrdering Facility: [facility] Address: [address] [place] [place] [address] Performed By: #### 5 7021-8 ####[facility] LABCLIA [id number] [place] [address] Platelet mean volume (Bld) [Entitic vol] 9.8 fL Normal 9.0-12.7 [facility] Comment on above: Order Comment: Speci men Type: BLOOD SPECIMENOrdering Facility: [facility] Address: [address] [place] [place] [address] Performed By: #### 5 7021-8 ####[facility] LABCLIA [id number] [place] [address] Platelets (Bld) [#/Vol] 110 10*3/uL Low 150-400 [facility] Comment on above: Order Comment: Speci men Type: BLOOD SPECIMENOrdering Facility: [facility] Address: [address] Performed By: #### 5 7021-8 ####[facility] LABCLIA [id number] [place] [address] RBC (Bld) [#/Vol] 3.63 10*6/uL Low 3.90-5.20 [facility] Comment on above: Order Comment: Speci men Type: BLOOD SPECIMENOrdering Facility: [facility] Address: [address] [place] [place] [address] Performed By: #### 5 7021-8 ####[facility] LABCLIA [id number] [place] [address] WBC (Bld) [#/Vol] 4.80 10*3/uL Normal 3.70-11.00 [facility] Comment on above: Order Comment: Speci men Type: BLOOD SPECIMENOrdering Facility: [facility] Address: [address] [place] [address] Performed By: #### 5 7021-8 ####[facility] LABCLIA [id number] [place] [address] CNOVSPon 03-09-2023 CNOVSP Normal [facility] metabolic 2000 panelon 03-09-2023 Albumin [Mass/Vol] 4.0 g/dL Normal 3.9-4.9 [facility] Comment on above: Order Comment: Speci men Type: BLOOD SPECIMENOrdering Facility: [facility] Address: [address] [place] [address] Performed By: #### 2 4323-8 ####[facility] LABCLIA [id number] [place] [address] ALP [Catalytic activity/Vol] 75 U/L Normal 34-123 [facility] Comment on above: Order Comment: Speci men Type: BLOOD SPECIMENOrdering Facility: [facility] Address: [address] [place] [address] Performed By: #### 2 4323-8 ####[facility] LABCLIA [id number] [place] [address] ALT [Catalytic activity/Vol] 43 U/L High 7-38 [facility] Comment on above: Order Comment: Speci men Type: BLOOD SPECIMENOrdering Facility: [facility] Address: [address] [place] [address] Performed By: #### 2 4323-8 ####[facility] LABCLIA [id number] [place] [address] Anion gap [Moles/Vol] 7 mmol/L Low 9-18 [facility] Comment on above: Order Comment: Speci men Type: BLOOD SPECIMENOrdering Facility: [facility] Address: [address] [place] [address] Performed By: #### 2 4323-8 ####[facility] LABCLIA [id number] [place] [address] AST [Catalytic activity/Vol] 54 U/L High 13-35 [facility] Comment on above: Order Comment: Speci men Type: BLOOD SPECIMENOrdering Facility: [facility] Address: [address] [place] [address] Performed By: #### 2 4323-8 ####[facility] LABCLIA [id number] [place] [address] Bilirubin [Mass/Vol] 0.6 mg/dL Normal 0.2-1.3 [facility] Comment on above: Order Comment: Speci men Type: BLOOD SPECIMENOrdering Facility: [facility] Address: [address] [place] [address] Performed By: #### 2 4323-8 ####[facility] LABCLIA [id number] [place] [address] Calcium [Mass/Vol] 9.3 mg/dL Normal 8.5-10.2 [facility] Comment on above: Order Comment: Speci men Type: BLOOD SPECIMENOrdering Facility: [facility] Address: [address] [place] [address] Performed By: #### 2 4323-8 ####[facility] LABCLIA [id number] [place] [address] Chloride [Moles/Vol] 106 mmol/L High 97-105 [facility] Comment on above: Order Comment: Speci men Type: BLOOD SPECIMENOrdering Facility: [facility] Address: [address] [place] [address] Performed By: #### 2 4323-8 ####[facility] LABCLIA [id number] [place] [address] CO2 [Moles/Vol] 25 mmol/L Normal 22-30 [facility] Comment on above: Order Comment: Speci men Type: BLOOD SPECIMENOrdering Facility: [facility] Address: [address] [place] [address] Performed By: #### 2 4323-8 ####[facility] LABCLIA [id number] [place] [address] Creatinine [Mass/Vol] 1.19 mg/dL High 0.58-0.96 [facility] Comment on above: Order Comment: Speci men Type: BLOOD SPECIMENOrdering Facility: [facility] Address: [address] [place] [address] Performed By: #### 2 4323-8 ####[facility] LABCLIA [id number] [place] [address] Creatinine and Glomerular filtration rate.predicted panel (S/P/Bld) 49 mL/min/1.73m??? Low >=60 [facility] Comment on above: Order Comment: Speci men Type: BLOOD SPECIMENOrdering Facility: [facility] Address: [address] [place] [address] Result Comment: Miryam mated Glomerular Filtration Rate [...] actual GFR. Performed By: #### 2 4323-8 ####[facility] LABCLIA [id number] [place] [address] Glucose [Mass/Vol] 107 mg/dL High 74-99 [facility] Comment on above: Order Comment: Speci men Type: BLOOD SPECIMENOrdering Facility: [facility] Address: [address] [place] [address] Result Comment: The [place] [employer] (ADA) provides guidance for cutoff values for fasting glucose and random glucose. The ADA defines fasting as no caloric intake for at least 8 hours. Fasting plasma glucose results between 100 to 125 mg/dL indicate increased risk for diabetes (prediabetes).Fasting plasma glucose results greater than or equal to 126 mg/dL meet the criteria for diagnosis of diabetes. In the absence of unequivocal hyperglycemia, results should be confirmed by repeat testing. In a patient with classic symptoms of hyperglycemia or hyperglycemic crisis, random plasma glucose results greater than or equal to 200 mg/dL meet the criteria for diagnosis of diabetes.Reference: Standards of Medical Care in Diabetes 2016, [place] [employer]. Diabetes Care. 2016.39(Suppl 1). Performed By: #### 2 4323-8 ####[facility] LABCLIA [id number] [place] [address] Potassium [Moles/Vol] 4.6 mmol/L Normal 3.7-5.1 [facility] Comment on above: Order Comment: Speci men Type: BLOOD SPECIMENOrdering Facility: [facility] Address: [address] [place] [address] Performed By: #### 2 4323-8 ####[facility] LABCLIA [id number] [place] [address] Protein [Mass/Vol] 7.5 g/dL Normal 6.3-8.0 [facility] Comment on above: Order Comment: Speci men Type: BLOOD SPECIMENOrdering Facility: [facility] Address: [address] [address] Performed By: #### 2 4323-8 ####[facility] LABCLIA [id number] [place] [address] Sodium [Moles/Vol] 138 mmol/L Normal 136-144 [facility] Comment on above: Order Comment: Speci men Type: BLOOD SPECIMENOrdering Facility: [facility] Address: [address] [address] Performed By: #### 2 4323-8 ####[facility] LABCLIA [id number] [place] [address] Urea nitrogen [Mass/Vol] 25 mg/dL High 7- [facility] Comment on above: Order Comment: Speci men Type: BLOOD SPECIMENOrdering Facility: [facility] Address: [address] [place] [address] Performed By: #### 2 4323-8 ####[facility] LABCLIA [id number] [place] [address] Albumin [Mass/volume] in Ser um or PlasmaOrdered By: Gilson Sarah on 08-29-2022 Albumin [Mass/Vol] 3.2 g/dL 3.2-5.5 [facility] Automated erythrocytes count in urine sediment (number/area)Ordered By: Gilson Johnsonr on 08-29-2022 RBC Auto (Urine sed) [#/Area] 1-2 [HPF] 0-4 [facility] Automated leukocytes count i n urine sediment (number/area)Ordered By: Gilson Tyrel on 08-29-2022 WBC Auto (Urine sed) [#/Area] 0-1 [HPF] 0-4 [facility] Bilirubin Test strip Ql (U)O rdered By: Gilson Johnsonr on 08-29-2022 Bilirubin Ql (U) Negative Negative [facility] Color Auto (U)Ordered By: Ab christiano Sarah on 08-29-2022 Color (U) Yellow Yellow [facility] Creatinine [Mass/volume] in UrineOrdered By: Gilson Tyrel on 08-29-2022 Creatinine (U) [Mass/Vol] 94.2 mg/dL [facility] Comment on above: No reference range e stablished Creatinine and Glomerular fi ltration rate.predicted panel (S/P/Bld)Ordered By: Gilson Johnsonr on 08-29-2022 Creatinine [Mass/Vol] 0.80 mg/dL 0.44-1.03 [facility] Dipstick and Microscopicon 0 08-29-2022 Appearance (U) Clear Normal Clear [facility] Comment on above: Order Comment: Reaso n for Exam HTN (hypertension);Lupus;Chronic ITP (idiopathic thrombocyto Name Collection Type:: Clean-Voided Midstream Performed By: #### A DDONUAPLUS #### [facility] [address] [place] [address] [place] Bacteria,Urine None Seen Normal None Seen [facility] Comment on above: Order Comment: Reaso n for Exam HTN (hypertension);Lupus;Chronic ITP (idiopathic thrombocyto Name Collection Type:: Clean-Voided Midstream Performed By: #### A DDONUAPLUS #### [facility] [address] [place] [address] [place] Bilirubin,Urine Negative Normal Negative [facility] Comment on above: Order Comment: Reaso n for Exam HTN (hypertension);Lupus;Chronic ITP (idiopathic thrombocyto Name Collection Type:: Clean-Voided Midstream Performed By: #### A DDONUAPLUS #### [facility] [address] [place] [address] [place] Color (U) Yellow Normal Yellow [facility] Comment on above: Order Comment: Reaso n for Exam HTN (hypertension);Lupus;Chronic ITP (idiopathic thrombocyto Name Collection Type:: Clean-Voided Midstream Performed By: #### A DDONUAPLUS #### [facility] [address] [place] [address] [place] Glucose Ql (U) Normal Normal Normal [facility] Comment on above: Order Comment: Reaso n for Exam HTN (hypertension);Lupus;Chronic ITP (idiopathic thrombocyto Name Collection Type:: Clean-Voided Midstream Performed By: #### A DDONUAPLUS #### [facility] [address] [place] [address] [place] Hyaline Casts,Urine 0-8 Normal 0-8 [facility] Comment on above: Order Comment: Reaso n for Exam HTN (hypertension);Lupus;Chronic ITP (idiopathic thrombocyto Name Collection Type:: Clean-Voided Midstream Result Comment: PERF ORMED BY: [place] [address] PATHOLOGIST [employer] IVORY BORRERO M.D. Performed By: #### A DDONUAPLUS #### [place] [address] [place] Ketones Ql (U) Negative Normal Negative [facility] Comment on above: Order Comment: Reaso n for Exam HTN (hypertension);Lupus;Chronic ITP (idiopathic thrombocyto Name Collection Type:: Clean-Voided Midstream Performed By: #### A DDONUAPLUS #### [address] Leukocyte esterase Test strip Ql (U) Negative Normal Negative [facility] Comment on above: Order Comment: Reaso n for Exam HTN (hypertension);Lupus;Chronic ITP (idiopathic thrombocyto Name Collection Type:: Clean-Voided Midstream Performed By: #### A DDONUAPLUS #### [place] [address] [place] Nitrite,Urine Negative Normal Negative [facility] Comment on above: Order Comment: Reaso n for Exam HTN (hypertension);Lupus;Chronic ITP (idiopathic thrombocyto Name Collection Type:: Clean-Voided Midstream Performed By: #### A DDONUAPLUS #### [place] [address] [place] Occult Blood,Urine Negative Normal Negative [facility] Comment on above: Order Comment: Reaso n for Exam HTN (hypertension);Lupus;Chronic ITP (idiopathic thrombocyto Name Collection Type:: Clean-Voided Midstream Performed By: #### A DDONUAPLUS #### [place] [address] [place] pH (U) 6.5 [pH] Normal 5.0-9.0 [facility] Comment on above: Order Comment: Reaso n for Exam HTN (hypertension);Lupus;Chronic ITP (idiopathic thrombocyto Name Collection Type:: Clean-Voided Midstream Performed By: #### A DDONUAPLUS #### [place] [address] [place] Protein,Urine Negative Normal Negative [facility] Comment on above: Order Comment: Reaso n for Exam HTN (hypertension);Lupus;Chronic ITP (idiopathic thrombocyto Name Collection Type:: Clean-Voided Midstream Performed By: #### A DDONUAPLUS #### [address] RBC,Urine 1-2 Normal 0-4 [facility] Comment on above: Order Comment: Reaso n for Exam HTN (hypertension);Lupus;Chronic ITP (idiopathic thrombocyto Name Collection Type:: Clean-Voided Midstream Performed By: #### A DDONUAPLUS #### [address] Specificy Rhodes,Urine 1.015 Normal 1.001-1.030 [facility] Comment on above: Order Comment: Reaso n for Exam HTN (hypertension);Lupus;Chronic ITP (idiopathic thrombocyto Name Collection Type:: Clean-Voided Midstream Performed By: #### A DDONUAPLUS #### [address] Squamous Epithelial Cell,Urine 3-4 High 0-2 [facility] Comment on above: Order Comment: Reaso n for Exam HTN (hypertension);Lupus;Chronic ITP (idiopathic thrombocyto Name Collection Type:: Clean-Voided Midstream Performed By: #### A DDONUAPLUS #### [address] Urobilinogen,Urine Normal Normal Normal [facility] Comment on above: Order Comment: Reaso n for Exam HTN (hypertension);Lupus;Chronic ITP (idiopathic thrombocyto Name Collection Type:: Clean-Voided Midstream Performed By: #### A DDONUAPLUS #### [address] WBC LM.HPF (Urine sed) [#/Area] 0 /[HPF] Normal 0-4 [facility] Comment on above: Order Comment: Reaso n for Exam HTN (hypertension);Lupus;Chronic ITP (idiopathic thrombocyto Name Collection Type:: Clean-Voided Midstream Performed By: #### A DDONUAPLUS #### [address] Erythrocyte distribution wid th Auto (RBC) [Ratio]Ordered By: Gilson Sarah on 08-29-2022 Erythrocyte distribution width (RBC) [Ratio] 14.9 % 11.9-15.3 [facility] Estimated glomerular filtrat ion rate (GFR) non- AmericanOrdered By: Gilson Sarah on 08-29-2022 GFR/1.73 sq M.predicted among non-blacks MDRD (S/P/Bld) [Vol rate/Area] > 60 mL/Min [facility] Hematocrit Auto (Bld) [Volum e fraction]Ordered By: Gilson Sarah on 08-29-2022 Hematocrit (Bld) [Volume fraction] 34.9 % 34.0-46.4 [facility] Hemoglobin [Mass/volume] in BloodOrdered By: Gilson Sarah on 08-29-2022 Hemoglobin (Bld) [Mass/Vol] 11.2 g/dL 11.8-15.4 [facility] Hemogram CBC Without Diffon 08-29-2022 Erythrocyte distribution width (RBC) [Ratio] 14.9 % Normal 11.9-15.3 [facility] Comment on above: Order Comment: Reaso n for Exam HTN (hypertension);Lupus;Chronic ITP (idiopathic thrombocyto Performed By: #### C BCNO #### [facility] [address] [place] [address] Hematocrit (Bld) [Volume fraction] 34.9 % Normal 34.0-46.4 [facility] Comment on above: Order Comment: Reaso n for Exam HTN (hypertension);Lupus;Chronic ITP (idiopathic thrombocyto Performed By: #### C BCNO #### [facility] [address] [place] [address] Hemoglobin (Bld) [Mass/Vol] 11.2 g/dL Low 11.8-15.4 [facility] Comment on above: Order Comment: Reaso n for Exam HTN (hypertension);Lupus;Chronic ITP (idiopathic thrombocyto Performed By: #### C BCNO #### [facility] [address] [place] [address] MCH (RBC) [Entitic mass] 29.5 pg Normal 24.7-34.3 [facility] Comment on above: Order Comment: Reaso n for Exam HTN (hypertension);Lupus;Chronic ITP (idiopathic thrombocyto Performed By: #### C BCNO #### [address] MCV (RBC) [Entitic vol] 92.0 fL Normal 80-100 [facility] Comment on above: Order Comment: Reaso n for Exam HTN (hypertension);Lupus;Chronic ITP (idiopathic thrombocyto Performed By: #### C BCNO #### [facility] [address] Mean Corpuscular HGB Conc 32.1 g/dL Normal 32.0-35.0 [facility] Comment on above: Order Comment: Reaso n for Exam HTN (hypertension);Lupus;Chronic ITP (idiopathic thrombocyto Performed By: #### C BCNO #### [address] Platelet mean volume (Bld) [Entitic vol] 8.4 fL Normal 6.3-10.7 [facility] Comment on above: Order Comment: Reaso n for Exam HTN (hypertension);Lupus;Chronic ITP (idiopathic thrombocyto Result Comment: PERF ORMED BY: [place] [address] PATHOLOGIST [employer] IVORY BORRERO M.D. Performed By: #### C BCNO #### [place] [address] [place] Platelets (Bld) [#/Vol] 124 10*3/uL Low 150-450 [facility] Comment on above: Order Comment: Reaso n for Exam HTN (hypertension);Lupus;Chronic ITP (idiopathic thrombocyto Performed By: #### C BCNO #### [place] [address] [place] RBC (Bld) [#/Vol] 3.79 10*6/uL Normal 3.60-5.00 [facility] Comment on above: Order Comment: Reaso n for Exam HTN (hypertension);Lupus;Chronic ITP (idiopathic thrombocyto Performed By: #### C BCNO #### [facility] [address] WBC (Bld) [#/Vol] 4.3 10*3/uL Normal 3.8-11.6 [facility] Comment on above: Order Comment: Reaso n for Exam HTN (hypertension);Lupus;Chronic ITP (idiopathic thrombocyto Performed By: #### C BCNO #### [facility] [address] Ketones Auto test strip (U) [Mass/Vol]Ordered By: Gilson Sarah on 08-29-2022 Ketones (U) [Mass/Vol] Negative Negative [facility] - Chemistry and C hemistry - challengeOrdered By: Gilson Sarah on 08-29-2022 Magnesium [Mass/Vol] 2.1 mg/dL 1.6-2.6 [facility] - UrinalysisOrder ed By: Gilson Sarah on 08-29-2022 Hyaline casts LM Ql (Urine sed) 0-8 [LPF] 0-8 [facility] Leukocytes [#/volume] correc austin for nucleated erythrocytes in Blood by Automated counOrdered By: Gilson Sarah on 08-29-2022 WBC corrected for nucl RBC Auto (Bld) [#/Vol] 4.3 10*3/uL 3.8-11.6 [facility] MCH Auto (RBC) [Entitic mass ]Ordered By: Gilson Sarah on 08-29-2022 MCH (RBC) [Entitic mass] 29.5 pg 24.7-34.3 [facility] MCHC Auto (RBC) [Mass/Vol]Or dered By: Gilson Sarah on 08-29-2022 MCHC (RBC) [Mass/Vol] 32.1 g/dL 32.0-35.0 [facility] MCV Auto (RBC) [Entitic vol] Ordered By: Gilson Sarah on 08-29-2022 MCV (RBC) [Entitic vol] 92.0 fL 80-100 [facility] Magnesiumon 08-29-2022 Magnesium [Mass/Vol] 2.1 mg/dL Normal 1.6-2.6 [facility] Comment on above: Order Comment: Reaso n for Exam HTN (hypertension);Lupus;Chronic ITP (idiopathic thrombocyto Result Comment: PERF ORMED BY: [facility] [address] [place] [address] PATHOLOGIST [employer] IVORY BORRERO M.D. Performed By: #### C BCNO #### [facility] [address] Nitrite Test strip Ql (U)Ord ered By: Gilson Sarah on 08-29-2022 Nitrite Ql (U) Negative Negative [facility] No Panel InformationOrdered By: Gilson Sarah on 08-29-2022 Estimated GFR () > 60 mL/Min [facility] Comment on above: GFR estimated refere nce range: According to KDOQI guidelines, <60 ml/min/1.73m2 is sufficient to diagnose a patient with chronic kidney disease. Pharmacy Creatinine Clearance (Chem N/A [facility] Phosphate [Mass/volume] in S henok or PlasmaOrdered By: Gilson Sarah on 08-29-2022 Phosphate [Mass/Vol] 3.1 mg/dL 2.5-4.6 [facility] Platelet mean volume Auto (B ld) [Entitic vol]Ordered By: Gilson Sarah on 08-29-2022 Platelet mean volume (Bld) [Entitic vol] 8.4 fL 6.3-10.7 [facility] Platelets Auto (Bld) [#/Vol] Ordered By: Gilson Sarah on 08-29-2022 Platelets (Bld) [#/Vol] 124 10*3/uL 150-450 [facility] Protein Auto test strip (U) [Mass/Vol]Ordered By: Gilson Sarah on 08-29-2022 Protein (U) [Mass/Vol] Negative Negative [facility] Protein Creat Ratio Ur Rando mon 08-29-2022 Creatinine, Urine (Random) 94.2 mg/dL Normal [facility] Comment on above: Order Comment: Reaso n for Exam HTN (hypertension);Lupus;Chronic ITP (idiopathic thrombocyto Result Comment: No r eference range established Performed By: #### P ROCRERAT #### [address] Protein (U) [Mass/Vol] 9 mg/dL Normal 0-9 [facility] Comment on above: Order Comment: Reaso n for Exam HTN (hypertension);Lupus;Chronic ITP (idiopathic thrombocyto Performed By: #### P ROCRERAT #### [address] Urine Protein/Creatinine Ratio 96 mg/g{Cre} Normal 0-200 [facility] Comment on above: Order Comment: Reaso n for Exam HTN (hypertension);Lupus;Chronic ITP (idiopathic thrombocyto Result Comment: PERF ORMED BY: [place] [address] PATHOLOGIST [employer] IVORY BORRERO M.D. Performed By: #### P ROCRERAT #### [address] Protein [Mass/volume] in Uri neOrdered By: Gilson Sarah on 08-29-2022 Protein (U) [Mass/Vol] 9 mg/dL 0-9 [facility] RBC Auto (Bld) [#/Vol]Ordere d By: Gilson Sarah on 08-29-2022 RBC (Bld) [#/Vol] 3.79 10*6/uL 3.60-5.00 [facility] Renal Function Panelon 08-29 Albumin [Mass/Vol] 3.2 g/dL Normal 3.2-5.5 [facility] Comment on above: Order Comment: Reaso n for Exam HTN (hypertension);Lupus;Chronic ITP (idiopathic thrombocyto Performed By: #### C BCNO #### [place] [address] [place] Anion gap [Moles/Vol] 10.9 mmol/L Normal 6.0-15.0 [facility] Comment on above: Order Comment: Reaso n for Exam HTN (hypertension);Lupus;Chronic ITP (idiopathic thrombocyto Performed By: #### C BCNO #### [facility] [address] [place] [address] [place] Calcium [Mass/Vol] 8.8 mg/dL Normal 8.2-10.2 [facility] Comment on above: Order Comment: Reaso n for Exam HTN (hypertension);Lupus;Chronic ITP (idiopathic thrombocyto Performed By: #### C BCNO #### [facility] [address] [place] [address] [place] Chloride [Moles/Vol] 99 mmol/L Normal 95-114 [facility] Comment on above: Order Comment: Reaso n for Exam HTN (hypertension);Lupus;Chronic ITP (idiopathic thrombocyto Performed By: #### C BCNO #### [facility] [address] CO2 [Moles/Vol] 28.0 mmol/L Normal 22.0-30.0 [facility] Comment on above: Order Comment: Reaso n for Exam HTN (hypertension);Lupus;Chronic ITP (idiopathic thrombocyto Performed By: #### C BCNO #### [facility] [address] Creatinine [Mass/Vol] 0.80 mg/dL Normal 0.44-1.03 [facility] Comment on above: Order Comment: Reaso n for Exam HTN (hypertension);Lupus;Chronic ITP (idiopathic thrombocyto Performed By: #### C BCNO #### [address] Estimated GFR ( Chelsi > 60 [facility] Comment on above: Order Comment: Reaso n for Exam HTN (hypertension);Lupus;Chronic ITP (idiopathic thrombocyto Result Comment: GFR estimated reference range: According to KDOQI guidelines, <60 ml/min/1.73m2 is sufficient to diagnose a patient with chronic kidney disease. Performed By: #### C BCNO #### [facility] [address] [place] [address] [place] Estimated GFR (Non- Am > 60 [facility] Comment on above: Order Comment: Reaso n for Exam HTN (hypertension);Lupus;Chronic ITP (idiopathic thrombocyto Performed By: #### C BCNO #### [facility] [address] [place] [id number] [facility] Glucose [Mass/Vol] 89 mg/dL Normal 70-100 [facility] Comment on above: Order Comment: Reaso n for Exam HTN (hypertension);Lupus;Chronic ITP (idiopathic thrombocyto Result Comment: [facility] Glucose Reference Range is dependent on time and content of last meal. Glucose of more than 200 mg/dL in a nonstressed, ambulatory subject supports the diagnosis of Diabetes Mellitus. ADA recommended reference range Performed By: #### C BCNO #### [facility] [address] Phosphate [Mass/Vol] 3.1 mg/dL Normal 2.5-4.6 [facility] Comment on above: Order Comment: Reaso n for Exam HTN (hypertension);Lupus;Chronic ITP (idiopathic thrombocyto Performed By: #### C BCNO #### [facility] [address] Potassium [Moles/Vol] 3.9 mmol/L Normal 3.5-5.1 [facility] Comment on above: Order Comment: Reaso n for Exam HTN (hypertension);Lupus;Chronic ITP (idiopathic thrombocyto Performed By: #### C BCNO #### [facility] [address] [place] [id number] [place] Sodium [Moles/Vol] 134 mmol/L Low 136-146 [facility] Comment on above: Order Comment: Reaso n for Exam HTN (hypertension);Lupus;Chronic ITP (idiopathic thrombocyto Performed By: #### C BCNO #### [facility] [address] [place] [id number] [place] Urea nitrogen [Mass/Vol] 19 mg/dL Normal 9-23 [facility] Comment on above: Order Comment: Reaso n for Exam HTN (hypertension);Lupus;Chronic ITP (idiopathic thrombocyto Performed By: #### C BCNO #### [facility] [address] [place] [id number] [place] Serum or plasma anion gap de terminationOrdered By: Gilson Sarah on 08-29-2022 Anion gap [Moles/Vol] 10.9 mmol/L 6.0-15.0 [facility] Serum or plasma calcium ramya urement (mass/volume)Ordered By: Gilson Sarah on 08-29-2022 Calcium [Mass/Vol] 8.8 mg/dL 8.2-10.2 [facility] Serum or plasma chloride brandy surement (moles/volume)Ordered By: Gilson Sarah on 08-29-2022 Chloride [Moles/Vol] 99 mmol/L 95-114 [facility] Serum or plasma glucose ramya urement (mass/volume)Ordered By: Gilson Sarah on 08-29-2022 Glucose [Mass/Vol] 89 mg/dL 70-100 [facility] Comment on above: ADA recommended refe rence rangeRandom Glucose Reference Range is dependent on time and content of last meal. Glucose of more than 200 mg/dL in a nonstressed, ambulatory subject supports the diagnosis of Diabetes Mellitus. Serum or plasma potassium me asurement (moles/volume)Ordered By: Gilson Sarah on 08-29-2022 Potassium [Moles/Vol] 3.9 mmol/L 3.5-5.1 [facility] Serum or plasma sodium measu rement (moles/volume)Ordered By: Gilson Sarah on 08-29-2022 Sodium [Moles/Vol] 134 mmol/L 136-146 [facility] Serum or plasma total carbon dioxide measurement (moles/volume)Ordered By: Gilson Sarah on 08-29-2022 CO2 [Moles/Vol] 28.0 mmol/L 22.0-30.0 [facility] Serum or plasma urea nitroge n measurement (mass/volume)Ordered By: Gilson Sarah on 08-29-2022 Urea nitrogen [Mass/Vol] 19 mg/dL 9-23 [facility] Specific gravity Auto test s trip (U) [Rel density]Ordered By: Gilson Sarah on 08-29-2022 Specific gravity (U) [Rel density] 1.015 1.001-1.030 [facility] Squamous epithelial cells de tection in urine sediment by light microscopyOrdered By: Gilson Sarah on 08-29-2022 Epithelial cells.squamous LM Ql (Urine sed) 3-4 [HPF] 0-2 [facility] US renal BIon 08-29-2022 US renal BI [facility] [place] [address] Ultrasound Report Signed Patient: Andrei Fish MR#: [id number] : 1950 Acct:[id number] Age/Sex: 71 / F ADM Date: 08/29/22 Loc: Room: Type: [facility] Attending Dr: Gilson Sarah MD Ordering Provider: Gilson Sarah MD Date of Service: 08/29/22 US/US renal BI: HTN (hypertension);Lupu s;Chronic ITP (idiopathic thrombocyto Copies to: Gilson Sarah [...] findings. Impression dictated by: Anastacio Cruz Jr., D.ODonald08/29/2022 2:20 PM Dictation Location: [place] [address] Tech: Kamille Camacho Transcribed By: [facility] 08/29/22 1420 Dictated By: Anastacio Cruz Jr, DO 08/29/22 1413 Signed By: 08/29/22 1420 Normal [facility] Urine bacteria detection by automated methodOrdered By: Gilson Sarah on 08-29-2022 Bacteria Auto Ql (U) None seen None Seen [facility] Urine clarity by refractomet ry automatedOrdered By: Gilson Sarah on 08-29-2022 Clarity Refractometry automated (U) Clear Clear [facility] Urine glucose measurement by automated test strip (mass/volume)Ordered By: Gilson Sarah on 08-29-2022 Glucose Auto test strip (U) [Mass/Vol] Normal mg/dL Normal [facility] Urine hemoglobin detection b y automated test stripOrdered By: Gilson Sarah on 08-29-2022 Hemoglobin Auto test strip Ql (U) Negative Negative [facility] Urine leukocyte esterase det ection by automated test stripOrdered By: Gilson Sarah on 08-29-2022 Leukocyte esterase Auto test strip Ql (U) Negative Negative [facility] Urine protein/creatinine rat ioOrdered By: Gilson Sarah on 08-29-2022 Protein/Creatinine (U) [Ratio] 96 mg/g{Cre} 0-200 [facility] Urobilinogen Auto test strip (U) [Mass/Vol]Ordered By: Gilson Sarah on 08-29-2022 Urobilinogen (U) [Mass/Vol] Normal mg/dL Normal [facility] pH Auto test strip (U)Ordere d By: Gilson Sarah on 08-29-2022 pH (U) 6.5 [pH] 5.0-9.0 [facility] MAGNESIUM BLDon 12-17-2021 Magnesium [Mass/Vol] 2.3 mg/dL 1.7 - 2 .3 mg/dL [facility] Vital Signs Date Time Vital Sign Value Performing Clinician Facility 03-05-2024 10:56-0400 Body height 158.8 cm Rinku Ramsey MD Work Phone: [facility] 03-05-2024 10:56-0400 Body mass index (BMI) [Ratio] 34.66 kg/m2 Rinku Ramsey MD Work Phone: [facility] 03-05-2024 10:56-0400 Body temperature 97.7 [degF] Rinku Ramsey MD Work Phone: [facility] 03-05-2024 10:56-0400 Body weight 87.4 kg Rinku Ramsey MD Work Phone: [facility] 03-05-2024 10:56-0400 Diastolic blood pressure 72 mm[Hg] Rinku Ramsey MD Work Phone: [facility] 03-05-2024 10:56-0400 Heart rate 74 /min Rinku Ramsey MD Work Phone: [facility] 03-05-2024 10:56-0400 Respiratory rate 16 /min Rinku Ramsey MD Work Phone: [facility] 03-05-2024 10:56-0400 SaO2% (BldA) [Mass fraction] 98 % Rinku Ramsey MD Work Phone: [facility] 03-05-2024 10:56-0400 Systolic blood pressure 128 mm[Hg] Rinku Ramsey MD Work Phone: [facility] 02-02-2024 13:21-0400 Body height 158.8 cm Rinku Ramsey MD Work Phone: [facility] 02-02-2024 13:21-0400 Body mass index (BMI) [Ratio] 34.54 kg/m2 Rinku Ramsey MD Work Phone: [facility] 02-02-2024 13:21-0400 Body temperature 97.7 [degF] Rinku Ramsey MD Work Phone: [facility] 02-02-2024 13:21-0400 Body weight 87.1 kg Rinku Ramsey MD Work Phone: [facility] 02-02-2024 13:21-0400 Diastolic blood pressure 68 mm[Hg] Rinku Ramsey MD Work Phone: [facility] 02-02-2024 13:21-0400 Heart rate 76 /min Rinku Ramsey MD Work Phone: [facility] 02-02-2024 13:21-0400 Respiratory rate 16 /min Rinku Ramsey MD Work Phone: [facility] 02-02-2024 13:21-0400 SaO2% (BldA) [Mass fraction] 100 % Rinku Ramsey MD Work Phone: [facility] 02-02-2024 13:21-0400 Systolic blood pressure 142 mm[Hg] Rinku Ramsey MD Work Phone: [facility] 12-18-2023 14:20-0400 Body temperature 97.2 [degF] Susanna Graf MD Work Phone: [facility] 12-18-2023 14:20-0400 Diastolic blood pressure 57 mm[Hg] Susanna Graf MD Work Phone: [facility] 12-18-2023 14:20-0400 Heart rate 79 /min Susanna Graf MD Work Phone: [facility] 12-18-2023 14:20-0400 Respiratory rate 19 /min Susanna Graf MD Work Phone: [facility] 12-18-2023 14:20-0400 SaO2% (BldA) [Mass fraction] 96 % Susanna Graf MD Work Phone: [facility] 12-18-2023 14:20-0400 Systolic blood pressure 131 mm[Hg] Susanna Graf MD Work Phone: [facility] 12-18-2023 06:28-0400 Body height 160 cm Susanna Graf MD Work Phone: [facility] 12-18-2023 06:28-0400 Body mass index (BMI) [Ratio] 33.94 kg/m2 Susanna Graf MD Work Phone: [facility] 12-18-2023 06:28-0400 Body weight 86.9 kg Susanna Graf MD Work Phone: [facility] 11-24-2023 10:59-0400 Body height 158.8 cm Rinku Ramsey MD Work Phone: [facility] 11-24-2023 10:59-0400 Body mass index (BMI) [Ratio] 34.78 kg/m2 Rinku Ramsey MD Work Phone: [facility] 11-24-2023 10:59-0400 Body temperature 97.7 [degF] Rinku Ramsey MD Work Phone: [facility] 11-24-2023 10:59-0400 Body weight 87.7 kg Rinku Ramsey MD Work Phone: [facility] 11-24-2023 10:59-0400 Diastolic blood pressure 84 mm[Hg] Rinku Ramsey MD Work Phone: [facility] 11-24-2023 10:59-0400 Heart rate 68 /min Rinku Ramsey MD Work Phone: [facility] 11-24-2023 10:59-0400 Respiratory rate 16 /min Rinku Ramsey MD Work Phone: [facility] 11-24-2023 10:59-0400 SaO2% (BldA) [Mass fraction] 100 % Rinku Ramsey MD Work Phone: [facility] 11-24-2023 10:59-0400 Systolic blood pressure 152 mm[Hg] Rinku Ramsey MD Work Phone: [facility] 11-14-2023 12:52-0400 Body height 160 cm Susanna Graf MD Work Phone: [facility] 11-14-2023 12:52-0400 Body mass index (BMI) [Ratio] 34.28 kg/m2 Susanna Graf MD Work Phone: [facility] 11-14-2023 12:52-0400 Body temperature 97.11 [degF] Susanna Graf MD Work Phone: [facility] 11-14-2023 12:52-0400 Body weight 87.77 kg Susanna Graf MD Work Phone: [facility] 08-28-2023 14:37-0500 Body temperature 97.59 [degF] Rinku Ramsey MD Work Phone: [facility] 08-28-2023 14:37-0500 Body weight 87.3 kg Rinku Ramsey MD Work Phone: [facility] 08-28-2023 14:37-0500 Diastolic blood pressure 78 mm[Hg] Rinku Ramsey MD Work Phone: [facility] 08-28-2023 14:37-0500 Heart rate 85 /min Rinku Ramsey MD Work Phone: [facility] 08-28-2023 14:37-0500 Respiratory rate 16 /min Rinku Ramsey MD Work Phone: [facility] 08-28-2023 14:37-0500 SaO2% (BldA) [Mass fraction] 97 % Rinku Ramsey MD Work Phone: [facility] 08-28-2023 14:37-0500 Systolic blood pressure 132 mm[Hg] Rinku Ramsey MD Work Phone: [facility] 08-23-2023 10:10-0500 Body height 160 cm Mar Mayo MD Work Phone: [facility] 08-23-2023 10:10-0500 Body mass index (BMI) [Ratio] 33.66 kg/m2 Mar Mayo MD Work Phone: [facility] 08-23-2023 10:10-0500 Body weight 86.18 kg Mar Mayo MD Work Phone: [facility] 08-23-2023 10:10-0500 Diastolic blood pressure 68 mm[Hg] Mar Mayo MD Work Phone: [facility] 08-23-2023 10:10-0500 Systolic blood pressure 133 mm[Hg] Mar Mayo MD Work Phone: [facility] 06-28-2023 10:20-0500 Body height 160.02 cm Gilson Sarah Other [employer] Other 06-28-2023 10:20-0500 Body mass index (BMI) [Ratio] 34.04 kg/m2 Gilson Tyrel Other [employer] Other 06-28-2023 10:20-0500 Body temperature 96.7 [degF] Gilson Tyrel Other [employer] Other 06-28-2023 10:20-0500 Body weight 87.18 kg Gilson Tyrel Other [employer] Other 06-28-2023 10:20-0500 Diastolic blood pressure 59 mm[Hg] Gilson Tyrel Other [employer] Other 06-28-2023 10:20-0500 Respiratory rate 18 /min Gilson Tyrel Other [employer] Other 06-28-2023 10:20-0500 SaO2% (BldA) [Mass fraction] 96 % Gilson Tyrel Other [employer] Other 06-28-2023 10:20-0500 Systolic blood pressure 117 mm[Hg] Gilson Tyrel Other [employer] Other 06-05-2023 10:08-0500 Body height 158.8 cm Ana Lizett PA-C Work Phone: [facility] 06-05-2023 10:08-0500 Body temperature 97 [degF] Ana Lizett PA-C Work Phone: [facility] 06-05-2023 10:08-0500 Body weight 87.27 kg Ana Lizett PA-C Work Phone: [facility] 06-05-2023 10:08-0500 Diastolic blood pressure 84 mm[Hg] Ana Lizett PA-C Work Phone: [facility] 06-05-2023 10:08-0500 Heart rate 76 /min Ana Lizett PA-C Work Phone: [facility] 06-05-2023 10:08-0500 Respiratory rate 16 /min Ana Lizett PA-C Work Phone: [facility] 06-05-2023 10:08-0500 SaO2% (BldA) [Mass fraction] 97 % Ana Lizett PA-C Work Phone: [facility] 06-05-2023 10:08-0500 Systolic blood pressure 152 mm[Hg] Ana Lizett PA-C Work Phone: [facility] 04-20-2023 10:11-0400 Body height 158.8 cm Rinku Ramsey MD Work Phone: [facility] 04-20-2023 10:11-0400 Body temperature 97.81 [degF] Rinku Ramsey MD Work Phone: [facility] 04-20-2023 10:11-0400 Body weight 89 kg Rinku Ramsey MD Work Phone: [facility] 04-20-2023 10:11-0400 Diastolic blood pressure 87 mm[Hg] Rinku Ramsey MD Work Phone: [facility] 04-20-2023 10:11-0400 Heart rate 72 /min Rinku Ramsey MD Work Phone: [facility] 04-20-2023 10:11-0400 Respiratory rate 18 /min Rinku Ramsey MD Work Phone: [facility] 04-20-2023 10:11-0400 SaO2% (BldA) [Mass fraction] 98 % Rinku Ramsey MD Work Phone: [facility] 04-20-2023 10:11-0400 Systolic blood pressure 168 mm[Hg] Rinku Ramsey MD Work Phone: [facility] 03-09-2023 14:03-0400 Body height 158.8 cm Rinku Ramsey MD Work Phone: [facility] 03-09-2023 14:03-0400 Body temperature 97.59 [degF] Rinku Ramsey MD Work Phone: [facility] 03-09-2023 14:03-0400 Body weight 88.27 kg Rinku Ramsey MD Work Phone: [facility] 03-09-2023 14:03-0400 Diastolic blood pressure 76 mm[Hg] Rinku Ramsey MD Work Phone: [facility] 03-09-2023 14:03-0400 Heart rate 71 /min Rinku Ramsey MD Work Phone: [facility] 03-09-2023 14:03-0400 Respiratory rate 16 /min Rinku Ramsey MD Work Phone: [facility] 03-09-2023 14:03-0400 SaO2% (BldA) [Mass fraction] 95 % Rinku Ramsey MD Work Phone: [facility] 03-09-2023 14:03-0400 Systolic blood pressure 143 mm[Hg] Rinku Ramsey MD Work Phone: [facility] 01-26-2023 14:48-0400 Body height 158.8 cm Rinku Ramsey MD Work Phone: [facility] 01-26-2023 14:48-0400 Body temperature 97.59 [degF] Rinku Ramsey MD Work Phone: [facility] 01-26-2023 14:48-0400 Body weight 89.09 kg Rinku Ramsey MD Work Phone: [facility] 01-26-2023 14:48-0400 Diastolic blood pressure 77 mm[Hg] Rinku Ramsey MD Work Phone: [facility] 01-26-2023 14:48-0400 Heart rate 75 /min Rinku Ramsey MD Work Phone: [facility] 01-26-2023 14:48-0400 Respiratory rate 18 /min Rinku Ramsey MD Work Phone: [facility] 01-26-2023 14:48-0400 SaO2% (BldA) [Mass fraction] 98 % Rinku Ramsey MD Work Phone: [facility] 01-26-2023 14:48-0400 Systolic blood pressure 147 mm[Hg] Rinku Ramsey MD Work Phone: [facility] 12-15-2022 13:52-0400 Body height 158.8 cm Rinku Ramsey MD Work Phone: [facility] 12-15-2022 13:52-0400 Body temperature 97.5 [degF] Rinku Ramsey MD Work Phone: [facility] 12-15-2022 13:52-0400 Body weight 87.36 kg Rinku Ramsey MD Work Phone: [facility] 12-15-2022 13:52-0400 Diastolic blood pressure 8 mm[Hg] Rinku Ramsey MD Work Phone: [facility] 12-15-2022 13:52-0400 Heart rate 64 /min Rinku Ramsey MD Work Phone: [facility] 12-15-2022 13:52-0400 Respiratory rate 16 /min Rinku Ramsey MD Work Phone: [facility] 12-15-2022 13:52-0400 SaO2% (BldA) [Mass fraction] 96 % Rinku Ramsey MD Work Phone: [facility] 12-15-2022 13:52-0400 Systolic blood pressure 152 mm[Hg] Rinku Ramsey MD Work Phone: [facility] 10-27-2022 14:56-0400 Body height 158.8 cm Rinku Ramsey MD Work Phone: [facility] 10-27-2022 14:56-0400 Body temperature 97.39 [degF] Rinku Ramsey MD Work Phone: [facility] 10-27-2022 14:56-0400 Body weight 87.36 kg Rinku Ramsey MD Work Phone: [facility] 10-27-2022 14:56-0400 Diastolic blood pressure 84 mm[Hg] Rinku Ramsey MD Work Phone: [facility] 10-27-2022 14:56-0400 Heart rate 71 /min Rinku Ramsey MD Work Phone: [facility] 10-27-2022 14:56-0400 Respiratory rate 18 /min Rinku Ramsey MD Work Phone: [facility] 10-27-2022 14:56-0400 SaO2% (BldA) [Mass fraction] 98 % Rinku Ramsey MD Work Phone: [facility] 10-27-2022 14:56-0400 Systolic blood pressure 164 mm[Hg] Rinku Ramsey MD Work Phone: [facility] 09-15-2022 15:20-0500 Body height 158.8 cm Rinku Ramsey MD Work Phone: [facility] 09-15-2022 15:20-0500 Body temperature 97.11 [degF] Rinku Ramsey MD Work Phone: [facility] 09-15-2022 15:20-0500 Body weight 86.36 kg Rinku Ramsey MD Work Phone: [facility] 09-15-2022 15:20-0500 Diastolic blood pressure 89 mm[Hg] Rinku Ramsey MD Work Phone: [facility] 09-15-2022 15:20-0500 Heart rate 75 /min Rinku Ramsey MD Work Phone: [facility] 09-15-2022 15:20-0500 Respiratory rate 16 /min Rinku Ramsey MD Work Phone: [facility] 09-15-2022 15:20-0500 SaO2% (BldA) [Mass fraction] 97 % Rinku Ramsey MD Work Phone: [facility] 09-15-2022 15:20-0500 Systolic blood pressure 158 mm[Hg] Rinku Ramsey MD Work Phone: [facility] 09-07-2022 10:20-0500 Body height 160.02 cm Gilson Tyrel Other [employer] Other 09-07-2022 10:20-0500 Body mass index (BMI) [Ratio] 33.69 kg/m2 Gilson Tyrel Other [employer] Other 09-07-2022 10:20-0500 Body temperature 96.4 [degF] Gilson Tyrel Other [employer] Other 09-07-2022 10:20-0500 Body weight 86.27 kg Gilson Tyrel Other [employer] Other 09-07-2022 10:20-0500 Diastolic blood pressure 99 mm[Hg] Gilson Tyrel Other [employer] Other 09-07-2022 10:20-0500 Respiratory rate 18 /min Gilson Tyrel Other [employer] Other 09-07-2022 10:20-0500 SaO2% (BldA) [Mass fraction] 98 % Gilson Tyrel Other [facility] [employer] Other 09-07-2022 10:20-0500 Systolic blood pressure 180 mm[Hg] Gilson Tyrel Other [facility] [employer] Other 08-04-2022 13:58-0500 Body height 158.8 cm Jayden Connelly APRN.AREA FIELD MANAGER Work Phone: [facility] 08-04-2022 13:58-0500 Body temperature 97.39 [degF] Jayden Connelly APRN.AREA FIELD MANAGER Work Phone: [facility] 08-04-2022 13:58-0500 Body weight 85.37 kg Jayden Connelly APRN.AREA FIELD MANAGER Work Phone: [facility] 08-04-2022 13:58-0500 Diastolic blood pressure 80 mm[Hg] Jayden Connelly APRN.AREA FIELD MANAGER Work Phone: [facility] 08-04-2022 13:58-0500 Heart rate 76 /min Jayden Connelly APRN.AREA FIELD MANAGER Work Phone: [facility] 08-04-2022 13:58-0500 Respiratory rate 16 /min Jayden Connelly APRN.AREA FIELD MANAGER Work Phone: [facility] 08-04-2022 13:58-0500 SaO2% (BldA) [Mass fraction] 98 % Jayden Connelly APRN.AREA FIELD MANAGER Work Phone: [facility] 08-04-2022 13:58-0500 Systolic blood pressure 149 mm[Hg] Jayden Connelly APRN.AREA FIELD MANAGER Work Phone: [facility] 06-23-2022 13:57-0500 Body height 158.8 cm Rinku Ramsey MD Work Phone: [facility] 06-23-2022 13:57-0500 Body temperature 97.59 [degF] Rinku Ramsey MD Work Phone: [facility] 06-23-2022 13:57-0500 Body weight 88.27 kg Rinku Ramsey MD Work Phone: [facility] 06-23-2022 13:57-0500 Diastolic blood pressure 88 mm[Hg] Rinku Ramsey MD Work Phone: [facility] 06-23-2022 13:57-0500 Heart rate 66 /min Rinku Ramsey MD Work Phone: [facility] 06-23-2022 13:57-0500 Respiratory rate 16 /min Rinku Ramsey MD Work Phone: [facility] 06-23-2022 13:57-0500 SaO2% (BldA) [Mass fraction] 100 % Rinku Ramsey MD Work Phone: [facility] 06-23-2022 13:57-0500 Systolic blood pressure 156 mm[Hg] Rinku Ramsey MD Work Phone: [facility] 05-12-2022 14:19-0400 Diastolic blood pressure 80 mm[Hg] Jayden Connelly APRN.AREA FIELD MANAGER Work Phone: [facility] 05-12-2022 14:19-0400 Systolic blood pressure 158 mm[Hg] Jayden Connelly APRN.AREA FIELD MANAGER Work Phone: [facility] 05-12-2022 14:13-0400 Body height 158.8 cm Jayden Connelly APRN.AREA FIELD MANAGER Work Phone: [facility] 05-12-2022 14:13-0400 Body temperature 97.81 [degF] Jayden Connelly APRN.AREA FIELD MANAGER Work Phone: [facility] 05-12-2022 14:13-0400 Body weight 88.27 kg Jayden Connelly APRN.AREA FIELD MANAGER Work Phone: [facility] 05-12-2022 14:13-0400 Heart rate 76 /min Jayden Connelly APRN.AREA FIELD MANAGER Work Phone: [facility] 05-12-2022 14:13-0400 Respiratory rate 18 /min Jayden Connelly [employer]ARTER.AREA FIELD MANAGER Work Phone: [facility] 05-12-2022 14:13-0400 SaO2% (BldA) [Mass fraction] 98 % Jayden Connelly [employer] STARTER.AREA FIELD MANAGER Work Phone: [facility] 03-31-2022 13:55-0400 Body height 158.8 cm Rinku Ramsey MD Work Phone: [facility] 03-31-2022 13:55-0400 Body temperature 97.7 [degF] Rinku Ramsey MD Work Phone: [facility] 03-31-2022 13:55-0400 Body weight 88.72 kg Rinku Ramsey MD Work Phone: [facility] 03-31-2022 13:55-0400 Diastolic blood pressure 83 mm[Hg] Rinku Ramsey MD Work Phone: [facility] 03-31-2022 13:55-0400 Heart rate 66 /min Rinku Ramsey MD Work Phone: [facility] 03-31-2022 13:55-0400 Respiratory rate 16 /min Rinku Ramsey MD Work Phone: [facility] 03-31-2022 13:55-0400 SaO2% (BldA) [Mass fraction] 95 % Rinku Ramsey MD Work Phone: [facility] 03-31-2022 13:55-0400 Systolic blood pressure 173 mm[Hg] Rinku Ramsey MD Work Phone: [facility] 02-11-2022 13:41-0400 Body height 158.8 cm Jayden Connelly [employer] STARTER.AREA FIELD MANAGER Work Phone: [facility] 02-11-2022 13:41-0400 Body temperature 97.3 [degF] Jayden Connelly [employer] STARTER.AREA FIELD MANAGER Work Phone: [facility] 02-11-2022 13:41-0400 Body weight 89.18 kg Jayden Connelly APRN.AREA FIELD MANAGER Work Phone: [facility] 02-11-2022 13:41-0400 Diastolic blood pressure 83 mm[Hg] Jayden Connelly [employer] STARTER.AREA FIELD MANAGER Work Phone: [facility] 02-11-2022 13:41-0400 Heart rate 79 /min Jayden Connelly [employer] STARTER.AREA FIELD MANAGER Work Phone: [facility] 02-11-2022 13:41-0400 Respiratory rate 16 /min Jayden Connelly [employer] STARTER.AREA FIELD MANAGER Work Phone: [facility] 02-11-2022 13:41-0400 SaO2% (BldA) [Mass fraction] 99 % Jayden Connelly APRN.AREA FIELD MANAGER Work Phone: [facility] 02-11-2022 13:41-0400 Systolic blood pressure 159 mm[Hg] Jayden Connelly [employer] STARTER.AREA FIELD MANAGER Work Phone: [facility] 12-17-2021 14:41-0400 Body height 158.8 cm Jayden Connelly APRN.AREA FIELD MANAGER Work Phone: [facility] 12-17-2021 14:41-0400 Body temperature 97.3 [degF] Jayden Connelly APRN.AREA FIELD MANAGER Work Phone: [facility] 12-17-2021 14:41-0400 Body weight 87.64 kg Jayden Connelly APRN.AREA FIELD MANAGER Work Phone: [facility] 12-17-2021 14:41-0400 Diastolic blood pressure 80 mm[Hg] Jayden Connelly APRN.AREA FIELD MANAGER Work Phone: [facility] 12-17-2021 14:41-0400 Heart rate 75 /min Jayden Connelly APRN.AREA FIELD MANAGER Work Phone: [facility] 12-17-2021 14:41-0400 Respiratory rate 16 /min Jayden Connelly APRN.AREA FIELD MANAGER Work Phone: [facility] 12-17-2021 14:41-0400 SaO2% (BldA) [Mass fraction] 96 % Jayden Connelly APRN.STEPH Work Phone: [facility] 12-17-2021 14:41-0400 Systolic blood pressure 154 mm[Hg] Jayden Connelly APRN.AREA FIELD MANAGER Work Phone: [facility] 11-10-2021 15:00-0400 Body height 160.02 cm Gilson Tyrel Other [employer] Other 11-10-2021 15:00-0400 Body mass index (BMI) [Ratio] 34.18 kg/m2 Gilson Tyrel Other [employer] Other 11-10-2021 15:00-0400 Body temperature 97.1 [degF] Gilson Tyrel Other [employer] Other 11-10-2021 15:00-0400 Body weight 87.54 kg Gilson Tyrel Other [employer] Other 11-10-2021 15:00-0400 Diastolic blood pressure 70 mm[Hg] Gilson Tyrel Other [employer] Other 11-10-2021 15:00-0400 Respiratory rate 18 /min Gilson Tyrel Other [employer] Other 11-10-2021 15:00-0400 SaO2% (BldA) [Mass fraction] 96 % Gilson Tyrel Other [employer] Other 11-10-2021 15:00-0400 Systolic blood pressure 154 mm[Hg] Gilson Tyrel Other [employer] Other 10-28-2021 11:27-0400 Body height 158.8 cm Rinku Ramsey MD Work Phone: [facility] 10-28-2021 11:27-0400 Body temperature 97.39 [degF] Rinku Ramsey MD Work Phone: [facility] 10-28-2021 11:27-0400 Body weight 87.82 kg Rinku Ramsey MD Work Phone: [facility] 10-28-2021 11:27-0400 Diastolic blood pressure 91 mm[Hg] Rinku Ramsey MD Work Phone: [facility] 10-28-2021 11:27-0400 Heart rate 75 /min Rinku Ramsey MD Work Phone: [facility] 10-28-2021 11:27-0400 Respiratory rate 16 /min Rinku Ramsey MD Work Phone: [facility] 10-28-2021 11:27-0400 SaO2% (BldA) [Mass fraction] 96 % Rinku Ramsey MD Work Phone: [facility] 10-28-2021 11:27-0400 Systolic blood pressure 157 mm[Hg] Rinku Ramsey MD Work Phone: [facility] Encounters Encounter Date Encounter Type Care Provider Facility Start: 03-05-2024 End: 03-05-2024 Nursing evaluation of patient and report Debora Gaona Work Phone: Hematology/Oncology Comment on above: 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 deficiency (Primary Dx); Abnormal weight loss; Lupus (HCC); Thrombocytopenia (HCC); Chronic ITP (idiopathic thrombocytopenia) (HCC) Start: 03-05-2024 End: 03-05-2024 Office outpatient visit 25 minutes Rinku Ramsey MD Work Phone: Hematology/Oncology Comment on above: Chronic ITP (idiopat hic thrombocytopenia) (HCC) (Primary Dx); 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 deficiency; Obstructive sleep apnea syndrome Start: 03-05-2024 End: 03-05-2024 ambulatory RINKU HONEYCUTTPENNIE Facility:[facility] Start: 03-04-2024 End: 03-04-2024 ambulatory STEPHANIE DUMONT Not Available Start: 03-01-2024 End: 03-01-2024 [facility] Start: 02-12-2024 End: 02-12-2024 ambulatory STEPHANIE DUMONT Not Available Start: 02-06-2024 End: 02-06-2024 ambulatory [facility] Start: 02-02-2024 End: 02-02-2024 Office outpatient visit 15 minutes Rinku Ramsey MD Work Phone: Hematology/Oncology Comment on above: Chronic ITP (idiopat hic thrombocytopenia) (HCC) (Primary Dx); Essential hypertension; Obstructive sleep apnea syndrome; Stage 3b chronic kidney disease (HCC) Start: 02-02-2024 End: 02-02-2024 ambulatory RINKU YINKAPENNIE Facility:[facility] Start: 01-25-2024 Refill Desirae Pimentel RN Hemat ology/Oncology Comment on above: Refill Request Start: 01-19-2024 Refill Jayden Connelly APRN.CNP Work Phone: Hematology/Oncology Comment on above: Refill Request Start: 01-02-2024 End: 01-02-2024 ambulatory [facility] Start: 12-18-2023 End: 12-18-2023 ambulatory [facility] Start: 12-18-2023 End: 12-18-2023 Encounter for other preprocedural examination [facility] Start: 12-18-2023 End: 12-18-2023 Preoperative state Susanna Graf MD Work Phone: [facility] Start: 12-18-2023 End: 12-18-2023 Subsequent hospital visit by physician Susanna Graf MD Work Phone: [facility] [place] Comment on above: Cholesteatoma of lef t ear (Primary Dx); Preoperative clearance; Post-operative pain Start: 12-15-2023 End: 12-15-2023 Nursing evaluation of patient and report Debora Gaona Work Phone: Hematology/Oncology Comment on above: Preoperative examina tion (Primary Dx) Start: 12-15-2023 End: 12-15-2023 Preprocedural examination done Debora Gaona Work Phone: [facility] Start: 12-15-2023 End: 12-15-2023 ambulatory RINKU ABHYFABIOLA Facility:[facility] Start: 11-28-2023 Telephone encounter Emilia holder RN Work Phone: Hematology/Oncology Comment on above: Call Request Start: 11-28-2023 End: 11-28-2023 ambulatory STEPHANIE TIM Not Available Start: 11-24-2023 End: 11-24-2023 Office outpatient visit 25 minutes Rinku Ramsey MD Work Phone: Hematology/Oncology Comment on above: Chronic ITP (idiopat hic thrombocytopenia) (HCC) (Primary Dx); Stage 3b chronic kidney disease (HCC); Secondary hypertension; Obstructive sleep apnea syndrome Start: 11-24-2023 End: 11-24-2023 ambulatory RINKU ABHYANKAR Facility:[facility] Start: 11-14-2023 End: 11-14-2023 Subsequent hospital visit by physician Kely [id number] [facility] Comment on above: Cholesteatoma of lef t ear Start: 11-14-2023 End: 11-14-2023 ambulatory [facility] Start: 11-14-2023 End: 11-14-2023 Office outpatient new 45 minutes Susanna Graf MD Work Phone: [facility] Comment on above: Cholesteatoma of lef t ear; Perforation of left tympanic membrane Start: 11-14-2023 End: 11-14-2023 ambulatory [facility] Start: 10-13-2023 End: 10-13-2023 ambulatory ANA PHOENIX Facility:[facility] Start: 09-02-2023 Refill Rinku lawrence MD Work Phone: Hematology/Oncology Comment on above: Refill Request Start: 08-28-2023 End: 08-28-2023 Office outpatient visit 15 minutes Rinku Ramsey MD Work Phone: Hematology/Oncology Comment on above: Chronic ITP (idiopat hic thrombocytopenia) (HCC) (Primary Dx); Essential hypertension; Obstructive sleep apnea syndrome; Systemic lupus erythematosus, unspecified SLE type, unspecified organ involvement status (HCC); Malaise and fatigue Start: 08-28-2023 End: 08-28-2023 ambulatory RINKU RAMSEY Facility:[facility] Start: 08-23-2023 Bamboo flowsheet Mar fontana MD Work Phone: [facility] Start: 08-23-2023 Bamboo flowssaw fontana MD Work Phone: [facility] [...] Mar krause MD Work Phone: [facility] Start: 08-16-2023 Bamboo flowsheet Karissa Kori Nelson ill CCC-A Work Phone: [facility] Start: 08-16-2023 Bamboo flowsheet Karissa Kori McG ill CCC-A Work Phone: [facility] Start: 08-16-2023 End: 08-16-2023 Clinical Support Karissa Alejandre CCC-A Work Phone: [facility] Comment on above: 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); Tympanic membrane perforation, left Start: 07-17-2023 End: 07-17-2023 ambulatory RINKU RAMSEY Facility:[facility] Start: 06-28-2023 Office outpatient vi sit 15 minutes Gilson Tyrel [facility] Start: 06-28-2023 End: 06-28-2023 ambulatory Gilson Tyrel [employer] Other Start: 06-06-2023 End: 06-06-2023 ambulatory STEPHANIE DUMONT Not Available Start: 06-05-2023 End: 06-05-2023 ambulatory Ana Phoenix PA-C Work Phone: Hematology/Oncology Comment on above: Chronic ITP (idiopat hic thrombocytopenia) (HCC) (Primary Dx); Essential hypertension; Hypertension, unspecified type Start: 06-05-2023 End: 06-05-2023 Patient encounter procedure Ana Phoenix PA-C Work Phone: [facility] Start: 05-01-2023 Refill Krista Calvo emilia [facility] Work Phone: Hematology/Oncology Comment on above: Refill Request Start: 04-20-2023 End: 04-20-2023 Office outpatient visit 25 minutes Rinku Ramsey MD Work Phone: Hematology/Oncology Comment on above: Chronic ITP (idiopat hic thrombocytopenia) (HCC) (Primary Dx); Essential hypertension Start: 04-20-2023 End: 04-20-2023 ambulatory RINKU RAMSEY Facility:[facility] Start: 04-19-2023 Telephone encounter Rinku hicks MD Work Phone: Hematology/Oncology Comment on above: Lab Orders Start: 04-05-2023 End: 04-05-2023 ambulatory Gilson Tyrel Other [employer] Other Start: 04-05-2023 Telephone encounter Gilson Tyrel [facility] Start: 03-14-2023 End: 03-14-2023 ambulatory Gilson Tyrel Other [facility] [employer] Other Start: 03-14-2023 Telephone encounter Gilson Sarah [facility] Start: 03-09-2023 End: 03-09-2023 Office outpatient visit 15 minutes Rinku Ramsey MD Work Phone: Hematology/Oncology Comment on above: Chronic ITP (idiopat hic thrombocytopenia) (HCC) (Primary Dx); Essential hypertension; Obstructive sleep apnea syndrome; Systemic lupus erythematosus, unspecified SLE type, unspecified organ involvement status (HCC) Start: 03-09-2023 End: 03-09-2023 ambulatory RINKU RAMSEY Facility:[facility] Start: 01-26-2023 End: 01-26-2023 Office outpatient visit 15 minutes Rinku Ramsey MD Work Phone: Hematology/Oncology Comment on above: Chronic ITP (idiopat hic thrombocytopenia) (HCC) (Primary Dx); Hypertension, unspecified type; Obstructive sleep apnea syndrome Start: 12-15-2022 End: 12-15-2022 Office outpatient visit 15 minutes Rinku Ramsey MD Work Phone: Hematology/Oncology Comment on above: Chronic ITP (idiopat hic thrombocytopenia) (HCC) (Primary Dx) Start: 10-27-2022 End: 10-27-2022 Office outpatient visit 15 minutes Rinku Ramsey MD Work Phone: Hematology/Oncology Comment on above: Chronic ITP (idiopat hic thrombocytopenia) (HCC) (Primary Dx) Start: 10-21-2022 Refill Rinku lawrence MD Work Phone: Hematology/Oncology Comment on above: Refill Request Start: 09-23-2022 Refill Rinku lawrence MD Work Phone: Hematology/Oncology Comment on above: Refill Request Start: 09-15-2022 End: 09-15-2022 Office outpatient visit 15 minutes Rinku Ramsey MD Work Phone: Hematology/Oncology Comment on above: Chronic ITP (idiopat hic thrombocytopenia) (HCC) (Primary Dx); Obstructive sleep apnea syndrome Start: 09-15-2022 Refill Rinku lawrence MD Work Phone: Hematology/Oncology Comment on above: Refill Request Start: 09-07-2022 End: 09-07-2022 ambulatory Gilson Sarah Other [employer] Other Start: 09-07-2022 Office outpatient vi sit 25 minutes Gilson Sarah [facility] [place] Start: 08-29-2022 End: 08-29-2022 ambulatory NON STAFF Facility:[facility] Start: 08-29-2022 End: 08-29-2022 ambulatory NON STAFF [facility] Work Phone: Start: 08-29-2022 End: 08-29-2022 Patient encounter procedure MD Gilson Sarah Work Phone: [facility] [place] Work Phone: Start: 08-15-2022 Refill Jayden Connelly APRN.STEPH Work Phone: Hematology/Oncology Comment on above: Refill Request Start: 08-05-2022 Refill Jayden Connelly APRN.AREA FIELD MANAGER Work Phone: Hematology/Oncology Comment on above: Refill Request Start: 08-04-2022 End: 08-04-2022 ambulatory Jayden Connelly APRN.STEPH Work Phone: Hematology/Oncology Comment on above: Chronic ITP (idiopat hic thrombocytopenia) (HCC) (Primary Dx); Obstructive sleep apnea syndrome; Hypertension, unspecified type; Systemic lupus erythematosus, unspecified SLE type, unspecified organ involvement status (HCC); Malaise and fatigue; Skin lesion of right lower extremity Start: 08-04-2022 End: 08-04-2022 Patient encounter procedure Jayden Connelly APRN.CNP Work Phone: [place] Start: 08-04-2022 Telephone encounter Jayden christiansen APRN.AREA FIELD MANAGER Work Phone: Cancer [facility] Comment on above: Referral Information (Dermatology) Start: 07-24-2022 Refill Jayden Connelly APRN.AREA FIELD MANAGER Work Phone: Hematology/Oncology Comment on above: Refill [...] encounter procedure Rinku Ramsey MD Work Phone: [place] Start: 06-23-2022 Refill Rinku lawrence MD Work Phone: Hematology/Oncology Comment on above: Refill Request Start: 06-15-2022 Refill Jayden Connelly APRN.[employer] FIELD MANAGER Work Phone: Hematology/Oncology Comment on above: Refill Request Start: 05-20-2022 Refill Rinku lawrence MD Work Phone: Hematology/Oncology Comment on above: Refill Request Start: 05-12-2022 End: 05-12-2022 ambulatory Jayden Connelly APRN.[employer] FIELD MANAGER Work Phone: Hematology/Oncology Comment on above: Chronic ITP (idiopat hic thrombocytopenia) (HCC) (Primary Dx); Obstructive sleep apnea syndrome; Essential hypertension Start: 05-12-2022 End: 05-12-2022 Patient encounter procedure Jayden Connelly APRN.AREA FIELD MANAGER Work Phone: [place] Start: 04-24-2022 Refill Jayden Connelly APRN.AREA FIELD MANAGER Work Phone: Hematology/Oncology Comment on above: Refill [...] Refill Request Start: 03-05-2022 Refill Jayden Connelly [employer] FI[employer] MANAGER Work Phone: Hematology/Oncology Comment on above: Refill Request Start: 02-11-2022 End: 02-11-2022 ambulatory Jayden Connelly [employer] FIELD MANAGER Work Phone: Hematology/Oncology Comment on above: Chronic ITP (idiopat hic thrombocytopenia) (HCC) (Primary Dx); Essential hypertension; Obstructive sleep apnea syndrome; Systemic lupus erythematosus, unspecified SLE type, unspecified organ involvement status (HCC) Start: 02-11-2022 End: 02-11-2022 Patient encounter procedure Jayden Connelly [employer]A FIELD MANAGER Work Phone: [place] Start: 02-03-2022 Refill Jayden Connelly [employer]A FIELD MANAGER Work Phone: Hematology/Oncology Comment on above: Refill Request Start: 01-15-2022 Refill Jayden Connelly [employer]A FIELD MANAGER Work Phone: Hematology/Oncology Comment on above: Refill Request Start: 01-09-2022 Refill Jayden Connelly [employer]A FIELD MANAGER Work Phone: Hematology/Oncology Comment on above: Refill Request Start: 12-17-2021 End: 12-17-2021 ambulatory Jayden Connelly [employer] FIELD MANAGER Work Phone: Hematology/Oncology Comment on above: Chronic ITP (idiopat hic thrombocytopenia) (HCC) (Primary Dx); Hypertension, unspecified type; Essential hypertension; Obstructive sleep apnea syndrome; Lung nodules; Systemic lupus erythematosus, unspecified SLE type, unspecified organ involvement status (HCC) Start: 12-17-2021 End: 12-17-2021 Patient encounter procedure Jayden Connelly APRN.CNP Work Phone: [place] Start: 11-10-2021 End: 11-10-2021 ambulatory Gilson Tyrel Other [employer] Other Start: 11-10-2021 Office outpatient ne w 45 minutes Gilson Tyrel [facility] [place] Start: 10-28-2021 End: 10-28-2021 ambulatory Rinku Ramsey MD Work Phone: Hematology/Oncology Comment on above: Chronic ITP (idiopat hic thrombocytopenia) (HCC) (Primary Dx); Essential hypertension; Obstructive sleep apnea syndrome; Lung nodules; Systemic lupus erythematosus, unspecified SLE type, unspecified organ involvement status (HCC) Start: 10-28-2021 End: 10-28-2021 Patient encounter procedure Rinku Ramsey MD Work Phone: [place] Start: 10-25-2021 ambulatory Mary Ellen Tidwell MA [facility] Comment on above: Population Health Na vigation Outreach (ACO PCP) Start: 10-19-2021 Refill Jayden Connelly APRN.[facility] Work Phone: Hematology/Oncology Comment on above: Refill Request Start: 05-07-2021 Telephone encounter Luanne Salcedo itt [facility] Work Phone: [facility] Comment on above: Medication Follow-up ([place] free drug application faxed) Start: 05-24-2016 End: 05-25-2016 Ambulatory COTY WRIGHT [facility] Procedures Date Procedure Procedure Detail Performing Clinician Start: 12-18-2023 PULSE OXIMETRY, CONTINUOUS Lizeth Woodward MD Work Phone: Start: 12-15-2023 Ecg routine ecg w/le ast 12 lds i&r only [facility] Provider Start: 12-15-2023 Antibody screen RINKU SANCHEZ Comment on above: Order Comment: Speci men Type: BLOOD SPECIMENOrdering Facility: External Submitter Address: , , Performed By: #### T SCR ####CC MAIN BLOOD BANKCLIA [id number] [address] [place] Start: 11-14-2023 CASE REQUEST OPERATING ROOM SUSANNA GRAF Start: 11-14-2023 CT IAC WO IV CONTRAST S EUGENIA LESIA Start: 11-14-2023 Ct orbit sella/post fossa/ear w/o contrast matrl Susanna Graf MD Work Phone: Start: 08-16-2023 AUDITORY FUNCTION TESTS Karissa Alejandre CCC-A Work Phone: Start: 05-19-2023 Mammography Karissa Hussein CCC-A Work Phone: Start: 08-29-2022 Ultrasonography of b ilateral kidneys MD Gilson Sarah Work Phone: Start: 07-25-2022 Colonoscopy Jayden christiansen [employer] FI[employer] MANAGER Work Phone: Start: 02-11-2022 Adult depression scr eening assessment Jayden Connelly [employer]A FIELD MANAGER Work Phone: Start: 08-05-2021 Adult depression scr eening assessment Jayden Connelly [employer]A FIELD MANAGER Work Phone: Start: 03-30-2017 Lipid 1996 panel - S henok or Plasma Rinku Ramsey MD Work Phone: Plan of Treatment Date Care Activity Detail Author Start: 07-25-2032 Screening for malignant neoplasm of colon [facility] Start: 03-05-2027 Diabetes Screening Diabetes Screening [facility] Start: 02-01-2027 Diabetes Screening Diabetes Screening [facility] Start: 12-14-2026 Diabetes Screening Diabetes Screening [facility] Start: 11-23-2026 Diabetes Screening Diabetes Screening [facility] Start: 08-28-2026 Diabetes Screening Diabetes Screening [facility] Start: 06-05-2026 Diabetes Screening Diabetes Screening [facility] Start: 04-20-2026 Diabetes Screening Diabetes Screening [facility] Start: 03-09-2026 DIABETES SCREEN DIABETES SCREEN [facility] Start: 03-09-2026 Diabetes Screening Diabetes Screening [facility] Start: 01-26-2026 DIABETES SCREEN DIABETES SCREEN [facility] Start: 12-15-2025 DIABETES SCREEN DIABETES SCREEN [facility] Start: 10-27-2025 DIABETES SCREEN DIABETES SCREEN [facility] Start: 09-15-2025 DIABETES SCREEN DIABETES SCREEN [facility] Start: 08-04-2025 DIABETES SCREEN DIABETES SCREEN [facility] Start: 06-23-2025 DIABETES SCREEN DIABETES SCREEN [facility] Start: 05-12-2025 DIABETES SCREEN DIABETES SCREEN [facility] Start: 03-31-2025 DIABETES SCREEN DIABETES SCREEN [facility] Start: 03-05-2025 BP Controlled (<130/80) BP Controlled (<130/80) [facility] in Start: 02-11-2025 DIABETES SCREEN DIABETES SCREEN [facility] Start: 12-17-2024 DIABETES SCREEN DIABETES SCREEN [facility] Start: 10-28-2024 DIABETES SCREEN DIABETES SCREEN [facility] Start: 09-16-2024 DIABETES SCREEN DIABETES SCREEN [facility] Start: 05-19-2024 Screening for malignant neoplasm of breast Mammogram [facility] Start: 05-08-2024 Medicare Annual Wellness (AWV) Medicare Annual Wellness (AWV) [facility] Start: 04-18-2024 End: 04-18-2024 Nursing evaluation of patient and report 04/18/2024 11:30 AM EDT Nurse Visit Hematology/Oncology [address] [place] [address] Debora Gaona Nurse Clarence [address] [place] [address] 6 week follow up and labs abd B 12 inj Hematology/Oncolo gy Comment on above: 6 week follow up and labs abd B 12 inj Start: 04-18-2024 End: 04-18-2024 Follow-up encounter 04/18/2024 11:15 AM EDT Visit (SP) Office Hematology/Oncology [address] [place] [address] Rinku Ramsey MD [address] [place] [address] 6 week follow up and labs abd B 12 inj Hematology/Oncolo gy Comment on above: 6 week follow up and labs abd B 12 inj Start: 04-18-2024 End: 04-18-2024 Patient encounter procedure 04/18/2024 11:00 AM EDT Office Visit [facility] [address] [place] [address] [place] [address] 6 week follow up and labs abd B 12 inj [facility] Comment on above: 6 week follow up and labs abd B 12 inj Start: 04-16-2024 End: 03-05-2025 CBC W Auto Differential panel - Blood COMPLETE BLOOD COUNT AND DIFFERENTIAL Lab Routine 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 deficiency Chronic ITP (idiopathic thrombocytopenia) (HCC) Expected: 04/16/2024 (Approximate), Expires: 03/05/2025 [facility] Comment on above: Expected: 04/16/2024 (Approximate), Expi res: 03/05/2025 Start: 04-16-2024 End: 03-05-2025 Cobalamin (Vitamin B12) [Mass/volume] in Serum or Plasma VITAMIN B12 Lab Routine 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 deficiency Expected: 04/16/2024 (Approximate), Expires: 03/05/2025 [facility] Comment on above: Expected: 04/16/2024 (Approximate), Expi res: 03/05/2025 Start: 04-16-2024 End: 03-05-2025 Comprehensive metabolic 2000 panel - Serum or Plasma COMPREHENSIVE METABOLIC PANEL Lab Routine 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 deficiency Expected: 04/16/2024 (Approximate), Expires: 03/05/2025 [facility] Comment on above: Expected: 04/16/2024 (Approximate), Expi res: 03/05/2025 Start: 04-16-2024 End: 07-16-2024 Erythropoietin (EPO) [Units/volume] in Serum or Plasma ERYTHROPOIETIN/EPO Lab Routine 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 deficiency Expected: 04/16/2024 (Approximate), Expires: 07/16/2024 [facility] Work Phone: Comment on above: Expected: 04/16/2024 (Approximate), Expi res: 07/16/2024 Start: 04-16-2024 End: 03-05-2025 Ferritin [Mass/volume] in Serum or Plasma FERRITIN Lab Routine 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 deficiency Expected: 04/16/2024 (Approximate), Expires: 03/05/2025 [facility] Comment on above: Expected: 04/16/2024 (Approximate), Expi res: 03/05/2025 Start: 04-16-2024 End: 03-05-2025 Folate [Mass/volume] in Serum or Plasma FOLATE, SERUM Lab Routine 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 deficiency Expected: 04/16/2024 (Approximate), Expires: 03/05/2025 [facility] Comment on above: Expected: 04/16/2024 (Approximate), Expi res: 03/05/2025 Start: 04-16-2024 End: 03-05-2025 Iron and Iron binding capacity panel - Serum or Plasma IRON AND TIBC Lab Routine 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 deficiency Expected: 04/16/2024 (Approximate), Expires: 03/05/2025 [facility] Comment on above: Expected: 04/16/2024 (Approximate), Expi res: 03/05/2025 Start: 04-16-2024 End: 07-16-2024 RETICULOCYTE COUNT RETICULOCYTE COUNT Lab Routine 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 deficiency Expected: 04/16/2024 (Approximate), Expires: 07/16/2024 [facility] Comment on above: Expected: 04/16/2024 (Approximate), Expi res: 07/16/2024 Start: 03-15-2024 End: 02-01-2025 CBC W Auto Differential panel - Blood COMPLETE BLOOD COUNT AND DIFFERENTIAL Lab Routine Chronic ITP (idiopathic thrombocytopenia) (HCC) Essential hypertension Obstructive sleep apnea syndrome Stage 3b chronic kidney disease (HCC) Expected: 03/15/2024 (Approximate), Expires: 02/01/2025 [facility] Comment on above: Expected: 03/15/2024 (Approximate), Expi res: 02/01/2025 Start: 03-15-2024 End: 02-01-2025 Comprehensive metabolic 2000 panel - Serum or Plasma COMPREHENSIVE METABOLIC PANEL Lab Routine Chronic ITP (idiopathic thrombocytopenia) (HCC) Essential hypertension Obstructive sleep apnea syndrome Stage 3b chronic kidney disease (HCC) Expected: 03/15/2024 (Approximate), Expires: 02/01/2025 [facility] Comment on above: Expected: 03/15/2024 (Approximate), Expi res: 02/01/2025 Start: 03-15-2024 End: 02-01-2025 Lactate dehydrogenase [Enzymatic activity/volume] in Serum or Plasma LACTATE DEHYDROGENASE Lab Routine Chronic ITP (idiopathic thrombocytopenia) (HCC) Essential hypertension Obstructive sleep apnea syndrome Stage 3b chronic kidney disease (HCC) Expected: 03/15/2024 (Approximate), Expires: 02/01/2025 [facility] Work Phone: Comment on above: Expected: 03/15/2024 (Approximate), Expi res: 02/01/2025 Start: 03-15-2024 End: 03-15-2024 Follow-up encounter 03/15/2024 1:15 PM EDT Visit (SP) Office Hematology/Oncology [address] [place] [address] Rinku Ramsey MD [address] [place] [address] 6 week follow up and labs Hematology/Oncolo gy Comment on above: 6 week follow up and labs Start: 03-15-2024 End: 03-15-2024 Patient encounter procedure 03/15/2024 1:00 PM EDT Office Visit [facility] [address] [place] [address] 6 week follow up and labs [facility] Comment on above: 6 week follow up and labs Start: 03-10-2024 [facility] Start: 02-02-2024 End: 02-02-2024 Follow-up encounter 02/02/2024 1:30 PM EDT Visit (SP) Office Hematology/Oncology [address] [place] [address] Rinku Ramsey MD [address] [place] [address] 6 week follow up and labs Hematology/Oncolo gy Comment on above: 6 week follow up and labs Start: 02-02-2024 End: 02-02-2024 Patient encounter procedure [facility] Comment on above: 11/28-Lvm to schedule appts for outsid e lab orders & EKG from Dr Royal-already scanned & entered 6 week follow up and labs Start: 01-05-2024 End: 01-05-2024 Follow-up encounter 01/05/2024 11:45 AM EDT Visit (SP) Office Hematology/Oncology [address] [place] [address] [place] [address] Rinku Ramsey MD [address] [place] [address] 6 week follow up and labs Hematology/Oncolo gy Comment on above: 6 week follow up and labs Start: 01-05-2024 End: 01-05-2024 Patient encounter procedure [facility] Comment on above: 6 week follow up and labs 11/28-Lvm to sched ule appts for outside lab orders & EKG from Dr Royal-already scanned & entered Start: 01-02-2024 End: 01-02-2024 Patient encounter procedure 01/02/2024 1:15 PM EDT Office Visit [facility] [address] [place] [address] [place] [address] [place] [address] [facility] Start: 12-18-2023 End: 12-18-2023 Tmpp mastoidect ntc/rcnsted canal wall ocr Tympanomastoidectomy Cholesteatoma of left ear 12/18/2023 7:45 AM EDT [facility] OR Start: 11-14-2023 End: 11-13-2024 Request for Pre-Admission Testing Visit Request for Pre-Admission Testing Visit Procedures Routine Cholesteatoma of left ear Expected: 11/14/2023 (Approximate), Expires: 11/13/2024 [facility] Service Area Work Phone: Comment on above: Expected: 11/14/2023 (Approximate), Expi res: 11/13/2024 Start: 09-24-2023 COVID-19 Vaccine () COVID-19 Vaccine () [facility] Start: 08-23-2023 End: 08-23-2023 Patient encounter procedure 08/23/2023 10:00 AM EST Office Visit [facility] [address] [facility] [address] [place] [id number] Mar Mayo MD [address] [facility] [address] [place] [address] [facility] Start: 07-25-2023 Colonoscopy COLONOSCOPY [facility] Start: 07-25-2023 COLORECTAL CANCER SCREENING COLORECTAL CANCER SCREENING [facility] Start: 07-25-2023 Screening for malignant neoplasm of colon [facility] Start: 07-21-2023 Covid-19 Vaccine () Covid-19 Vaccine () [facility] Start: 07-17-2023 End: 10-16-2023 CBC W Auto Differential panel - Blood CBC + DIFF Lab Routine Chronic ITP (idiopathic thrombocytopenia) (HCC) Essential hypertension Expected: 07/17/2023 (Approximate), Expires: 10/16/2023 [facility] Work Phone: Comment on above: Expected: 07/17/2023 (Approximate), Expi res: 10/16/2023 Start: 07-17-2023 End: 10-16-2023 Comprehensive metabolic 2000 panel - Serum or Plasma COMP METABOLIC PANEL Lab Routine Chronic ITP (idiopathic thrombocytopenia) (HCC) Essential hypertension Expected: 07/17/2023 (Approximate), Expires: 10/16/2023 [facility] Work Phone: Comment on above: Expected: 07/17/2023 (Approximate), Expi res: 10/16/2023 Start: 07-10-2023 Advance Directive Discussion Advance Directive Discussion [facility] Start: 07-10-2023 Behavioral Health Screening Behavioral Health Screening [facility] Start: 07-10-2023 Depression Assessment Depression Assessment [facility] Start: 04-20-2023 End: 04-19-2024 CBC W Auto Differential panel - Blood CBC + DIFF Lab Routine Chronic ITP (idiopathic thrombocytopenia) (HCC) Expected: 04/20/2023 (Approximate), Expires: 04/19/2024 [facility] Work Phone: Comment on above: Expected: 04/20/2023 (Approximate), Expi res: 04/19/2024 Start: 04-20-2023 End: 04-19-2024 Comprehensive metabolic 2000 panel - Serum or Plasma COMP METABOLIC PANEL Lab Routine Chronic ITP (idiopathic thrombocytopenia) (HCC) Expected: 04/20/2023 (Approximate), Expires: 04/19/2024 [facility] Work Phone: Comment on above: Expected: 04/20/2023 (Approximate), Expi res: 04/19/2024 Start: 04-20-2023 End: 04-19-2024 Lactate dehydrogenase [Enzymatic activity/volume] in Serum or Plasma LD LACTATE DEHYDRO Lab Routine Chronic ITP (idiopathic thrombocytopenia) (HCC) Expected: 04/20/2023 (Approximate), Expires: 04/19/2024 [facility] Work Phone: Comment on above: Expected: 04/20/2023 (Approximate), Expi res: 04/19/2024 Start: 03-10-2023 Covid-19 Vaccine ( season) Covid-19 Vaccine ( season) [facility] Start: 03-10-2023 Influenza vaccination [facility] Start: 02-11-2023 Adult depression screening assessment DEPRESSION SCREENING [facility] Start: 08-05-2022 Adult depression screening assessment DEPRESSION SCREENING [facility] Start: 08-04-2022 End: 06-23-2023 CBC W Auto Differential panel - Blood CBC + DIFF Lab Routine Chronic ITP (idiopathic thrombocytopenia) (HCC) Expected: 08/04/2022 (Approximate), Expires: 06/23/2023 [facility] Work Phone: Comment on above: Expected: 08/04/2022 (Approximate), Expi res: 06/23/2023 Start: 08-04-2022 End: 06-23-2023 Comprehensive metabolic 2000 panel - Serum or Plasma COMP METABOLIC PANEL Lab Routine Chronic ITP (idiopathic thrombocytopenia) (HCC) Expected: 08/04/2022 (Approximate), Expires: 06/23/2023 [facility] Work Phone: Comment on above: Expected: 08/04/2022 (Approximate), Expi res: 06/23/2023 Start: 08-04-2022 End: 06-23-2023 Lactate dehydrogenase [Enzymatic activity/volume] in Serum or Plasma LD LACTATE DEHYDRO Lab Routine Chronic ITP (idiopathic thrombocytopenia) (HCC) Expected: 08/04/2022 (Approximate), Expires: 06/23/2023 [facility] Work Phone: Comment on above: Expected: 08/04/2022 (Approximate), Expi res: 06/23/2023 Start: 08-04-2022 End: 10-04-2022 Nuclear Ab [Presence] in Serum by Immunoassay RAAD PANEL BLOOD SCRN Lab Routine Systemic lupus erythematosus, unspecified SLE type, unspecified organ involvement status (HCC) Expected: 08/04/2022 (Approximate), Expires: 10/04/2022 [facility] Work Phone: Comment on above: Expected: 08/04/2022 (Approximate), Expi res: 10/04/2022 Start: 07-10-2022 ADVANCE DIRECTIVE DISCUSSION ADVANCE DIRECTIVE DISCUSSION [facility] Start: 07-10-2022 DEPRESSION ASSESSMENT DEPRESSION ASSESSMENT [facility] Start: 06-08-2022 COVID-19 VACCINE (5 - Booster for Moderna series) COVID-19 VACCINE (5 - Booster for Moderna series) [facility] Start: 04-02-2022 COVID-19 VACCINE (5 - Booster for Moderna series) COVID-19 VACCINE (5 - Booster for Moderna series) [facility] Start: 04-02-2022 COVID-19 VACCINE (5 - Moderna risk series) COVID-19 VACCINE (5 - Moderna risk series) [facility] Start: 03-30-2022 Lipid 1996 panel - Serum or Plasma Lipid Screening [facility] Start: 03-30-2022 Lipid panel Lipid Screening [facility] Start: 03-30-2022 LIPID SCREEN LIPID SCREEN [facility] Start: 03-25-2022 End: 05-25-2022 CBC W Auto Differential panel - Blood CBC + DIFF Lab Routine Chronic ITP (idiopathic thrombocytopenia) (HCC) Essential hypertension Obstructive sleep apnea syndrome Systemic lupus erythematosus, unspecified SLE type, unspecified organ involvement status (HCC) Expected: 03/25/2022, Expires: 05/25/2022 [facility] Work Phone: Comment on above: Expected: 03/25/2022, Expires: 2 Start: 03-25-2022 End: 05-25-2022 Comprehensive metabolic 2000 panel - Serum or Plasma COMP METABOLIC PANEL Lab Routine Chronic ITP (idiopathic thrombocytopenia) (HCC) Essential hypertension Obstructive sleep apnea syndrome Systemic lupus erythematosus, unspecified SLE type, unspecified organ involvement status (HCC) Expected: 03/25/2022, Expires: 05/25/2022 [facility] Work Phone: Comment on above: Expected: 03/25/2022, Expires: 2 Start: 03-10-2022 Influenza vaccination INFLUENZA (#1) [facility] Start: 01-28-2022 End: 03-30-2022 CBC W Auto Differential panel - Blood CBC + DIFF Lab Routine Hypertension, unspecified type Chronic ITP (idiopathic thrombocytopenia) (HCC) Essential hypertension Obstructive sleep apnea syndrome Lung nodules Systemic lupus erythematosus, unspecified SLE type, unspecified organ involvement status (HCC) Expected: 01/28/2022, Expires: 03/30/2022 [facility] Work Phone: Comment on above: Expected: 01/28/2022, Expires: 2 Start: 01-28-2022 End: 03-30-2022 Comprehensive metabolic 2000 panel - Serum or Plasma COMP METABOLIC PANEL Lab Routine Hypertension, unspecified type Chronic ITP (idiopathic thrombocytopenia) (HCC) Essential hypertension Obstructive sleep apnea syndrome Lung nodules Systemic lupus erythematosus, unspecified SLE type, unspecified organ involvement status (HCC) Expected: 01/28/2022, Expires: 03/30/2022 [facility] Work Phone: Comment on above: Expected: 01/28/2022, Expires: Start: 01-28-2022 End: 03-30-2022 Lactate dehydrogenase [Enzymatic activity/volume] in Serum or Plasma LD LACTATE DEHYDRO Lab Routine Hypertension, unspecified type Chronic ITP (idiopathic thrombocytopenia) (HCC) Essential hypertension Obstructive sleep apnea syndrome Lung nodules Systemic lupus erythematosus, unspecified SLE type, unspecified organ involvement status (HCC) Expected: 01/28/2022, Expires: 03/30/2022 [facility] Work Phone: Comment on above: Expected: 01/28/2022, Expires: Start: 12-09-2021 End: 10-28-2022 CBC W Auto Differential panel - Blood CBC + DIFF Lab Routine Chronic ITP (idiopathic thrombocytopenia) (HCC) Expected: 12/09/2021 (Approximate), Expires: 10/28/2022 [facility] Work Phone: Comment on above: Expected: 12/09/2021 (Approximate), Expi res: 10/28/2022 Start: 12-09-2021 End: 10-28-2022 Comprehensive metabolic 2000 panel - Serum or Plasma COMP METABOLIC PANEL Lab Routine Chronic ITP (idiopathic thrombocytopenia) (HCC) Expected: 12/09/2021 (Approximate), Expires: 10/28/2022 [facility] Work Phone: Comment on above: Expected: 12/09/2021 (Approximate), Expi res: 10/28/2022 Start: 12-09-2021 End: 10-28-2022 Lactate dehydrogenase [Enzymatic activity/volume] in Serum or Plasma LD LACTATE DEHYDRO Lab Routine Chronic ITP (idiopathic thrombocytopenia) (HCC) Expected: 12/09/2021 (Approximate), Expires: 10/28/2022 [facility] Work Phone: Comment on above: Expected: 12/09/2021 (Approximate), Expi res: 10/28/2022 Start: 09-14-2021 COVID-19 VACCINE (4 - Booster for Moderna series) COVID-19 VACCINE (4 - Booster for Moderna series) [facility] Start: 07-10-2021 ADVANCE DIRECTIVE DISCUSSION ADVANCE DIRECTIVE DISCUSSION [facility] Start: 07-10-2021 DEPRESSION ASSESSMENT DEPRESSION ASSESSMENT [facility] Start: 02-17-2018 Screening for malignant neoplasm of breast Mammogram Screening [facility] Start: 12-07-2015 BONE DENSITY BONE DENSITY [facility] Start: 12-07-2015 Bone Density Screening Bone Density Screening [facility] Start: 12-07-2015 Screening for osteoporosis Bone Density Screening [facility] Start: 2010 RSV patients and/or patients aged 60+ years (1 - 1-dose 60+ series) RSV patients and/or patients aged 60+ years (1 - 1-dose 60+ series) [facility] Start: 2010 RSV Vaccine (1 - 1-dose 60+ series) RSV Vaccine (1 - 1-dose 60+ series) [facility] Start: 2000 SHINGRIX VACCINE (1 of 2) SHINGRIX VACCINE (1 of 2) [facility] Start: 2000 Zoster Vaccines (1 of 2) Zoster Vaccines (1 of 2) [facility] Start: 12-07-1995 COLOGUARD (FIT-DNA) COLOGUARD (FIT-DNA) [facility] Start: 12-07-1995 Colonoscopy COLONOSCOPY [facility] Start: 12-07-1995 COLORECTAL CANCER SCREENING COLORECTAL CANCER SCREENING [facility] Start: 12-07-[address] COLONOGRAPHY [facility] Start: 12-07-1995 FECAL OCCULT BLOOD FECAL OCCULT BLOOD [facility] Start: 12-07-1995 Screening for malignant neoplasm of colon [facility] Start: 12-07-1995 SIGMOIDOSCOPY SIGMOIDOSCOPY [facility] Start: 1990 Mammography [facility] Start: 1990 Screening for malignant neoplasm of breast Mammogram [facility] Start: 1972 DTaP/Tdap/Td Vaccines (1 - Tdap) DTaP/Tdap/Td Vaccines (1 - Tdap) [facility] Start: 1969 SHINGRIX VACCINE (1 of 2) SHINGRIX VACCINE (1 of 2) [facility] Start: 1969 Urine microalbumin profile [facility] Start: 1968 ANNUAL PCP TEAM CHRONIC DISEASE VISIT ANNUAL PCP TEAM CHRONIC DISEASE VISIT [facility] Start: 1968 Anxiety Screening Anxiety Screening [facility] Start: 1968 BP CONTROLLED (<130/80) BP CONTROLLED (<130/80) [facility] Start: 1968 Depression Screening Depression Screening [facility] Start: 1968 Hepatitis C screening Hepatitis C Screening [facility] Start: 1961 Screening for malignant neoplasm of cervix Cervical Cancer Screening [facility] Start: 1950 Lipid panel Lipid Panel [facility] Start: 1950 Medicare Annual Wellness Visit Medicare Annual Wellness Visit (AWV) [facility] Start: 1950 Screening for malignant neoplasm of colon [facility] Start: 1950 Screening for osteoporosis Bone Density Scan [facility] End: 03-31-2023 CBC W Auto Differential panel - Blood CBC + DIFF Lab Routine Chronic ITP (idiopathic thrombocytopenia) (HCC) Obstructive sleep apnea syndrome Every 6 weeks for 9 Occurrences starting 03/31/2022 until 03/31/2023 [facility] Work Phone: Comment on above: Every 6 weeks for 9 Occurrences starting 03/31/2022 until 03/31/2023 End: 04-19-2024 CBC W Auto Differential panel - Blood CBC + DIFF Lab Routine Chronic ITP (idiopathic thrombocytopenia) (HCC) Every 6 weeks for 9 Occurrences starting 04/20/2023 until 04/19/2024 [facility] Work Phone: Comment on above: Every 6 weeks for 9 Occurrences starting 04/20/2023 until 04/19/2024 End: 12-18-2023 Choriogonadotropin ( test) [Presence] in Urine [facility] Service Area Work Phone: Comment on above: STAT (Lab) for 1 Occurrences starting until 12/18/2023 End: 04-19-2024 Cobalamin (Vitamin B12) [Mass/volume] in Serum or Plasma VITAMIN B12 BLOOD Lab Routine Chronic ITP (idiopathic thrombocytopenia) (HCC) Every 6 weeks for 9 Occurrences starting 04/20/2023 until 04/19/2024 [facility] Work Phone: Comment on above: Every 6 weeks for 9 Occurrences starting 04/20/2023 until 04/19/2024 End: 03-31-2023 Comprehensive metabolic 2000 panel - Serum or Plasma COMP METABOLIC PANEL Lab Routine Chronic ITP (idiopathic thrombocytopenia) (HCC) Obstructive sleep apnea syndrome Every 6 weeks for 9 Occurrences starting 03/31/2022 until 03/31/2023 [facility] Work Phone: Comment on above: Every 6 weeks for 9 Occurrences starting 03/31/2022 until 03/31/2023 End: 04-19-2024 Comprehensive metabolic 2000 panel - Serum or Plasma COMP METABOLIC PANEL Lab Routine Chronic ITP (idiopathic thrombocytopenia) (HCC) Every 6 weeks for 9 Occurrences starting 04/20/2023 until 04/19/2024 [facility] Work Phone: Comment on above: Every 6 weeks for 9 Occurrences starting 04/20/2023 until 04/19/2024 ECG COMPLETE ECG COMPLETE ECG 12/15/2023 11:36 AM EDT [facility] End: 04-19-2024 Ferritin [Mass/volume] in Serum or Plasma FERRITIN BLD Lab Routine Chronic ITP (idiopathic thrombocytopenia) (HCC) Every 6 weeks for 9 Occurrences starting 04/20/2023 until 04/19/2024 [facility] Work Phone: Comment on above: Every 6 weeks for 9 Occurrences starting 04/20/2023 until 04/19/2024 End: 04-19-2024 Folate [Mass/volume] in Serum or Plasma FOLATE SERUM Lab Routine Chronic ITP (idiopathic thrombocytopenia) (HCC) Every 6 weeks for 9 Occurrences starting 04/20/2023 until 04/19/2024 [facility] Work Phone: Comment on above: Every 6 weeks for 9 Occurrences starting 04/20/2023 until 04/19/2024 End: 04-19-2024 Iron and Iron binding capacity panel - Serum or Plasma IRON + TIBC Lab Routine Chronic ITP (idiopathic thrombocytopenia) (HCC) Every 6 weeks for 9 Occurrences starting 04/20/2023 until 04/19/2024 [facility] Work Phone: Comment on above: Every 6 weeks for 9 Occurrences starting 04/20/2023 until 04/19/[address] [facility] Work Phone: Comment on above: Release Upon Ordering for 1 Occurrences starting 12/18/2023, 1 completed Tmpp mastoidect ntc/rcnsted canal wall ocr Tympanomastoidectomy Cholesteatoma of left ear [facility] Immunizations Immunization Date Immunization Notes Care Provider [facility] 03-25-2023 influenza (HD-IIV4) vaccine, age 65+ yr, high dose, quadrivalent, PF (FLUZONE HIGH-DOSE) Rinku Ramsey MD Work Phone: [facility] 03-25-2023 influenza virus vacc ine, unspecified formulation Jayden Connelly APRN.AREA FIELD MANAGER Work Phone: [facility] 04-20-2022 influenza, high-dose , quadrivalent vaccine (FLUZONE HIGH DOSE QUADRIVALENT) Jayden Connelly APRN.AREA FIELD MANAGER Work Phone: [facility] 04-20-2022 influenza virus vacc ine, unspecified formulation Rinku Ramsey MD Work Phone: [facility] 03-23-2021 influenza, high-dose , quadrivalent vaccine (FLUZONE HIGH DOSE QUADRIVALENT) Jayden Connelly APRN.AREA FIELD MANAGER Work Phone: [facility] 10-17-2020 COVID-19 vaccine, fu ll dose (MODERNA) Jayden Connelly APRN.AREA FIELD MANAGER Work Phone: [facility] 09-19-2020 COVID-19 vaccine, fu ll dose (MODERNA) Jayden Connelly APRN.AREA FIELD MANAGER Work Phone: [facility] 03-18-2020 influenza, high-dose , quadrivalent vaccine (FLUZONE HIGH DOSE QUADRIVALENT) Jayden Connelly STREETCAR STARTER.AREA FIELD MANAGER Work Phone: [facility] 04-01-2019 influenza, high dose seasonal, preservative-free Jayden Connelly STREETCAR STARTER.AREA FIELD MANAGER Work Phone: [facility] 04-01-2019 pneumococcal polysaccharide vaccine, 23 valent Jayden Connelly STREETCAR STARTER.AREA FIELD MANAGER Work Phone: [facility] 03-23-2018 influenza, high dose seasonal, preservative-free Jayden Connelly STREETCAR STARTER.AREA FIELD MANAGER Work Phone: [facility] 03-23-2018 pneumococcal conjuga te vaccine, 13 valent Jayden Connelly STREETCAR STARTER.AREA FIELD MANAGER Work Phone: [facility] 04-08-2017 influenza, high dose seasonal, preservative-free Jayden Connelly STREETCAR STARTER.AREA FIELD MANAGER Work Phone: [facility] 09-06-2016 pneumococcal conjuga te vaccine, 13 valent Jayden Connelly STREETCAR STARTER.AREA FIELD MANAGER Work Phone: [facility] Payers Date Payer Category Payer Private Health Insurance [facility] DUAL COMPLETE [facility] DUAL [facility]PLETE [id number] 2023-Present [address] [address] [place] [address] [id number] 2022 Self-pay [id number] 2021 Medicare [facility] AARP MEDICAR E [facility] AARP MEDICARE HMO [id number] 2021-Present [phone] [address] [address] [place] [address] HMO [id number] 2021 Medicare [id number] 2021 Private Health Insurance [id number] 2015 Medicare MEDICARE MEDICAR E A AND B [id number] 2015-[address] [place] [address] [place] [address] Medicare [id number] 1950 Unknown [id number] [id number]. 1245 1950 Unknown [id number] [id number]. 1242 1950 Unknown [id number] 2.16.840.1.386242.3.579.2. 1244 1950 Unknown [id number] 2.16.840.1.311814.3.579.2. 1244 1950 Unknown [id number] 2.16.840.1.500202.3.579.2. 1244 1950 Unknown [id number] 2.16.840.1.525204.3.579.2. 1286 1950 Unknown [id number] [id number]. 1259 1950 Unknown [id number] 2.16.840.1.406728.3.579.2. 1259 1950 Unknown [id number] 2.16.840.1.522825.3.579.2. 9 1950 Unknown [id number] 2.16.840.1.890413.3.579.2. 1259 1950 Unknown [id number] 2.16.840.1.061717.3.579.2. 1259 1950 Unknown [id number] 2.16.840.1.137192.3.579.2. 1259 Medicare [id number] Medicare [id number] Medicare [id number] Unknown [facility] [id number] Unknown [id number] [id number]. 531 Unknown [id number]. 531 Social History Date Type Detail Facility Start: 09-16-2021 End: 05-12-2022 Tobacco smoking status NHIS Light tobacco smoker [facility] History of tobacco use Cigarette Smoker [facility] Start: 09-16-2021 End: 05-12-2022 Tobacco use and exposure Smokeless tobacco non-user [facility] Start: 09-16-2021 End: 03-05-2024 Alcohol intake Current non-drinker of alcohol (finding) [facility] Start: 1950 Sex Assigned At Not on file C [facility] Start: 10-18-2021 End: 12-18-2023 Exposure to SARS-CoV-2 (event) Not sure [facility] Start: 03-03-2016 End: 11-14-2023 Tobacco smoking status [facility] Smokes tobacco daily [facility] Start: 12-15-2022 End: 01-26-2023 Sex Assigned At [facility] History of tobacco use Passive smoker [facility] Start: 1950 Sex Assigned At Female F [facility] Start: 12-15-2022 End: 01-26-2023 History of Social function [facility] Adult Depression Screening Assessment 0 [facility] Start: 08-16-2023 End: 12-18-2023 Alcohol intake Lifetime non-drinker (finding) [facility] Clinical Notes 05-12-2021 to 03-05-2024 Joanne Alvarez MA - 03/05/2024 11:40 AM Joanne Ceballos MA - 03/05/2024 11:40 AM EDTPatient Sia Pelayoek, MD - 03/05/2024 10:30 AM EDTPatient InstructionsDischarge Instructions Note Date & Type Note Facility 03-05-2024 Nurse Note Patient Identification confirmed: yes. Injection given and documented on MAR per provider order. Joanne Alvarez MA [facility] 03-05-2024 Nurse Note Patient Identification confirmed: yes. Injection given and documented on MAR per provider order. Joanne Alvarez MA documented in this encounter [facility] 03-05-2024 Instructions Emani Brizuela - 03/05/2024 11:20 AM EDT B12 shot today and q 6 weeks Continue Tavalisse 100 mg BID RTC in 6 weeks Labs same day documented in this encounter [facility] 03-05-2024 History of Present illness Narrative Images from the original note were not included. NAME: Andrei Fish [facility] NO.: [id number] DATE OF SERVICE: March 05, 2024 ([facility]) Some elements in this clinic note that are critical to medical decision making have been carefully reviewed and included from a prior clinic note dated: February 02, 2024 ([facility]) Additional Clinicians involved in Andrei Fish's care: Dr. Deluna, Dr. Susanna Graf DIAGNOSIS: Chronic ITP ASSESSMENT: 1. Thrombocytopenia (HCC) [...] future. 7. Osteoporosis--dexa scan 05/17/2023--PCP managing. PLAN: B12 shot today and q 6 weeks Continue Tavalisse 100 mg BID RTC in 6 weeks Labs same day HPI: CASE HISTORY: Reverse Chronological Order 03/29/2023 - US Renal Bilateral: Normal-sized kidneys [...] (A-B): - Non-diagnostic lymphoid aggregates, see comment. Unremarkable maturing [...] 2018 - Rituxan X 4 Updated Visit, March 05, 2024: Andrei returns today for a follow up. Platelets are stable, she is more anemic today. Will give B12 injection today. Her eardrum repair was successful. She complains of continued weakness in her legs. She is going to follow up with her ELECTION CLERK regarding pulmonary nodule that has been stable on our records since 2019, thyroid nodule, and echocardiogram for possible valvular or underlying cardiac disease. Updated Visit, February 02, 2024: Andrei returns today for a follow up. Platelets have increased to 148 today. Her blood pressure remains stable, despite elevation being a common AE of Tavalisse. Her eardrum was repaired on 12/17. She mentions her cousin's need for a liver transplant due to cirrhosis. Updated Visit, November 24, 2023: Waiting to get her ear drum repaired. Blood pressure is stable. Tired today. Had an episode of hypotension. Resolved on it's own. Will need to see Vascular surgery because of leg cramps. Updated Visit, October 13, 2023: Anderi returns for follow up. Labs stable. BP slightly elevated, but recently at home 130s/80s. Denies any bleeding or bruising. No more dizzy spells. Waiting for ENT to call her for appointment Updated Visit, August 28, 2023: Andrei returns [...] having a mammogram and dexa scan at [facility] per her PCP. She states that she [...] complaints. Updated Visit, August 04, 2022: Andrei Fish returns for follow-up. She remains on Tavalisse [...] 08/29/2022 and then a follow-up with her bag machine set up operator on 09/07/2022. Overall, she is doing well [...] resolved. Updated Visit, May 12, 2022: Andrei Fish returns for follow-up. She remains on Tavalisse [...] they are slightly increased. Got back from [place] and saw her sisters and had a nice trip with her of 54 yrs. Updated Visit, February 11, 2022: Andrei Fish returns for scheduled follow-up. She remains on [...] well. Updated Visit, December 17, 2021: Andrei Fish returns for scheduled follow-up. She remains on [...] therapy. Updated Visit, September 16, 2021: Andrei Fish returns for follow-up. She remains on Tavalisse [...] concerns. Updated Visit, August 05, 2021: Mrs. Fish returns today and platelets continue to respond. We changed her anti-HTNives and her cough resolved, but today she notes she has a dry cough that returned this past Monday. Doubt this is due to medications. Will continue monitoring her. Updated Visit, July 16, 2021: Andrei Fish returns for follow-up. She remains on Tavalisse [...] why she was going to see a bag machine set up operator for her blood pressure. Patient also has [...] stable. Updated Visit, June 11, 2021: Andrei Fish returns for follow-up. She remains on tab [...] normal. Updated Visit, January 27, 2021: Andrei Fish returns for scheduled follow-up. There has been [...] PERFORMANCE STATUS: 0 PHYSICAL EXAMINATION: Vitals: BP 128/72 Pulse 74 Temp (Src) 97.7 (Temporal) Resp 16 Ht 5' 2.52 (1.59m) Wt 192 lb 10.9 oz (87.4kg) SpO2 98% BMI 34.66 kg/(m^2). Body surface area is 1.96 meters [...] [Tetanus Vac* Unknown Vancomycin Unknown Burning sensation Diphtheria,Pertussi* Rash MEDICATIONS: methocarbamol (ROBAXIN) 750 mg tablet Take 750 mg by mouth three times a day. metoprolol succinate ER (TOPROL XL) 25 mg 24 hr tablet Take 12.5 mg by mouth once daily. traMADol (ULTRAM) 50 mg tablet Take 50 mg by mouth every 6 hours as needed for pain. ondansetron orally disintegrating (ZOFRAN ODT) 4 mg disintegrating tablet Take 4 mg by mouth every 8 hours as needed for nausea/vomiting. oxyCODONE-acetaminophen (PERCOCET) 5-325 mg tablet Take 1 tablet by mouth every 6 hours as needed for pain. pilocarpine (SALAGEN) 5 mg tablet Take 1 tablet by mouth three times a day. hydroCHLOROthiazide 25 mg tablet take 1 tablet by mouth every day losartan (COZAAR) 25 mg tablet take 2 tablets by mouth every day at bedtime ergocalciferol 50,000 unit capsule (VITAMIN D2, DRISDOL) Take 1 capsule by mouth one time a week. alendronate (FOSAMAX) 70 mg tablet PLEASE SEE ATTACHED FOR DETAILED DIRECTIONS fostamatinib (TAVALISSE) 100 mg tablet Take 1 tablet by mouth two times a day. spironolactone (ALDACTONE) 25 mg tablet Take 25 mg by mouth once daily. cholecalciferol, vitamin D3, (VITAMIN D3 ORAL) Take by mouth. benzonatate (TESSALON PERLE) 100 mg capsule TAKE 1 CAPSULE BY MOUTH EVERY 6 HOURS NEEDED FOR COUGH. LABORATORY VALUES: WBC (k/uL) Date Value 03/05/2024 4.62 RBC (m/uL) Date Value 03/05/2024 3.19 (L) Hemoglobin (g/dL) Date Value 03/05/2024 9.9 (L) Hematocrit (%) Date Value 03/05/2024 31.2 (L) MCV (fL) Date Value 03/05/2024 97.8 MCH (pg) Date Value 03/05/2024 31.0 MCHC (g/dL) Date Value 03/05/2024 31.7 RDW-CV (%) Date Value 03/05/2024 14.6 Platelet Count (k/uL) Date Value 03/05/2024 144 (L) MPV (fL) Date Value 03/05/2024 9.6 Glucose (mg/dL) Date Value 03/05/2024 148 (H) BUN (mg/dL) Date Value 03/05/2024 27 (H) Creatinine (mg/dL) Date Value 03/05/2024 1.14 (H) Sodium (mmol/L) Date Value 03/05/2024 140 Potassium (mmol/L) Date Value 03/05/2024 4.7 Chloride (mmol/L) Date Value 03/05/2024 106 CO2 (mmol/L) Date Value 03/05/2024 26 Protein, Total (g/dL) Date Value 03/05/2024 7.0 Albumin (g/dL) Date Value 03/05/2024 3.9 Calcium, Total (mg/dL) Date Value 03/05/2024 9.4 Alkaline Phosphatase (U/L) Date Value 03/05/2024 71 Bilirubin, Total (mg/dL) Date Value 03/05/2024 0.7 AST (U/L) Date Value 03/05/2024 18 ALT (U/L) Date Value 03/05/2024 10 Cholesterol, Total (mg/dL) Date Value 03/30/2017 171 Triglyceride (mg/dL) Date Value 03/30/2017 118 DIAGNOSIS: (D69.3) Chronic ITP (idiopathic thrombocytopenia) (HCC) (primary encounter diagnosis) Plan: COMPLETE BLOOD COUNT AND DIFFERENTIAL (D53.1) 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 deficiency Plan: ERYTHROPOIETIN/EPO, COMPLETE BLOOD COUNT AND DIFFERENTIAL, COMPREHENSIVE METABOLIC PANEL, IRON AND TIBC, FERRITIN, VITAMIN B12, FOLATE, SERUM, RETICULOCYTE COUNT (G47.33) Obstructive sleep apnea syndrome PAST MEDICAL HISTORY No date: Lupus (HCC) No date: Thrombocytopenia (HCC) PAST SURGICAL HISTORY 07/25/2022: COLONSCOPY SCREENING HIGH RISK No date: HYSTERECTOMY HX Social History Tobacco Use Smoking status: Light Smoker Types: Cigarettes Passive exposure: Past Smokeless tobacco: Never Vaping Use Vaping status: Never Used Substance Use Topics Alcohol use: No Drug use: No History reviewed. No pertinent family history. I spent a total of 30 minutes on the date of service which included preparing to see the patient, [id number] patient care, completing clinical documentation, obtaining and/or reviewing separately obtained history, performing a medically appropriate examination, counseling and educating the patient/family/caregiver, ordering medications, tests, or procedures, communicating with other HCPs (not separately reported), independently interpreting results (not separately reported), communicating results to the patient/family/caregiver, and care coordination (not separately reported). Rinku Ramsey MD, CPE Hematology and Oncology Services Provided at: [place], [place] Scribe Attestation: This note was scribed by Emani Brizuela on March 05, 2024 under the direction and supervision of Dr. Rinku Ramsey. I attest that all of the information documented is correct to the best of my knowledge. Provider Attestation: I, Rinku Ramsey MD, attest that all information documented by the above scribe is correct, and was supervised by me and under my direction. CC: Dr. Atif Graf documented in this encounter [facility] 02-02-2024 Instructions Emani Carr - 02/02/2024 1:48 PM EDT Continue Tavalisse 100 mg BID RTC in 6 weeks for labs and follow up documented in this encounter [facility] 02-02-2024 History of Present illness Narrative Images from the original note were not included. NAME: Andrei Fish CLINIC NO.: [id number] DATE OF SERVICE: February 02, 2024 (Joon) Some elements in this clinic note that are critical to medical decision making have been carefully reviewed and included from a prior clinic note dated: November 24, 2023 (Joon) Additional Clinicians involved in Andrei Fish's care: Dr. Deluna, Dr. Susanna Graf DIAGNOSIS: Chronic ITP ASSESSMENT: 1. Thrombocytopenia (HCC) [...] in future. 7. Osteoporosis--dexa scan 05/17/2023--PCP managing. Will be getting her ear drum repaired with Dr. Prema Graf at and is clear from my perspective to proceed as long as platelets remain above 100k. There shouldn't be any need to stop Tavalisse but if required, she is safe to be off for 2 weeks. PLAN: Continue Tavalisse 100 mg BID RTC in 6 weeks for labs and follow up HPI: CASE HISTORY: Reverse Chronological Order 03/29/2023 - US Renal Bilateral: Normal-sized kidneys [...] (A-B): - Non-diagnostic lymphoid aggregates, see comment. Unremarkable maturing [...] Plaquenil which she stopped 01/2019 - Prednisone 2017 - Rituxan X 4 Updated Visit, February 02, 2024: Andrei returns today for a follow up. Platelets have increased to 148 today. Her blood pressure remains stable, despite elevation being a common AE of Tavalisse. Her eardrum was repaired on 12/17. She mentions her cousin's need for a liver transplant due to cirrhosis. Updated Visit, November 24, 2023: Waiting to get her ear drum repaired. Blood pressure is stable. Tired today. Had an episode of hypotension. Resolved on it's own. Will need to see Vascular surgery because of leg cramps. Updated Visit, October 13, 2023: Andrei returns for follow up. Labs stable. BP slightly elevated, but recently at home 130s/80s. Denies any bleeding or bruising. No more dizzy spells. Waiting for ENT to call her for appointment Updated Visit, August 28, 2023: Andrei returns [...] having a mammogram and dexa scan at [facility] per her PCP. She states that she [...] complaints. Updated Visit, August 04, 2022: Andrei Fish returns for follow-up. She remains on Tavalisse [...] 08/29/2022 and then a follow-up with her bag machine set up operator on 09/07/2022. Overall, she is doing well [...] resolved. Updated Visit, May 12, 2022: Andrei Fish returns for follow-up. She remains on Tavalisse [...] they are slightly increased. Got back from [place] and saw her sisters and had a nice trip with her of 54 yrs. Updated Visit, February 11, 2022: Andrei Fish returns for scheduled follow-up. She remains on [...] well. Updated Visit, December 17, 2021: Andrei Fish returns for scheduled follow-up. She remains on [...] therapy. Updated Visit, September 16, 2021: Andrei Fish returns for follow-up. She remains on Tavalisse [...] concerns. Updated Visit, August 05, 2021: Mrs. Fish returns today and platelets continue to respond. We changed her anti-HTNives and her cough resolved, but today she notes she has a dry cough that returned this past Monday. Doubt this is due to medications. Will continue monitoring her. Updated Visit, July 16, 2021: Andrei Fish returns for follow-up. She remains on Tavalisse [...] why she was going to see a bag machine set up operator for her blood pressure. Patient also has [...] stable. Updated Visit, June 11, 2021: Andrei Fish returns for follow-up. She remains on tab [...] normal. Updated Visit, January 27, 2021: Andrei Fish returns for scheduled follow-up. There has been [...] PERFORMANCE STATUS: 0 PHYSICAL EXAMINATION: Vitals: BP 142/68 Pulse 76 Temp (Src) 97.7 (Temporal) Resp 16 Ht 5' 2.52 (1.59m) Wt 192 lb 0.3 oz (87.1kg) SpO2 100% BMI 34.54 kg/(m^2). Body surface area is 1.96 meters [...] [Tetanus Vac* Unknown Vancomycin Unknown Burning sensation Diphtheria,Pertussi* Rash MEDICATIONS: pilocarpine (SALAGEN) 5 mg tablet Take 1 tablet by mouth three times a day. hydroCHLOROthiazide 25 mg tablet take 1 tablet by mouth every day losartan (COZAAR) 25 mg tablet take 2 tablets by mouth every day at bedtime ergocalciferol 50,000 unit capsule (VITAMIN D2, DRISDOL) Take 1 capsule by mouth one time a week. alendronate (FOSAMAX) 70 mg tablet PLEASE SEE ATTACHED FOR DETAILED DIRECTIONS fostamatinib (TAVALISSE) 100 mg tablet Take 1 tablet by mouth two times a day. spironolactone (ALDACTONE) 25 mg tablet Take 25 mg by mouth once daily. cholecalciferol, vitamin D3, (VITAMIN D3 ORAL) Take by mouth. benzonatate (TESSALON PERLE) 100 mg capsule TAKE 1 CAPSULE BY MOUTH EVERY 6 HOURS NEEDED FOR COUGH. (Patient not taking: Reported on 11/24/2023) LABORATORY VALUES: WBC (k/uL) Date Value 02/02/2024 5.54 RBC (m/uL) Date Value 02/02/2024 3.29 (L) Hemoglobin (g/dL) Date Value 02/02/2024 10.3 (L) Hematocrit (%) Date Value 02/02/2024 32.6 (L) MCV (fL) Date Value 02/02/2024 99.1 MCH (pg) Date Value 02/02/2024 31.3 MCHC (g/dL) Date Value 02/02/2024 31.6 RDW-CV (%) Date Value 02/02/2024 14.0 Platelet Count (k/uL) Date Value 02/02/2024 148 (L) MPV (fL) Date Value 02/02/2024 9.1 Glucose (mg/dL) Date Value 02/02/2024 140 (H) BUN (mg/dL) Date Value 02/02/2024 35 (H) Creatinine (mg/dL) Date Value 02/02/2024 1.14 (H) Sodium (mmol/L) Date Value 02/02/2024 142 Potassium (mmol/L) Date Value 02/02/2024 4.8 Chloride (mmol/L) Date Value 02/02/2024 110 (H) CO2 (mmol/L) Date Value 02/02/2024 23 Protein, Total (g/dL) Date Value 02/02/2024 7.3 Albumin (g/dL) Date Value 02/02/2024 3.8 (L) Calcium, Total (mg/dL) Date Value 02/02/2024 9.5 Alkaline Phosphatase (U/L) Date Value 02/02/2024 71 Bilirubin, Total (mg/dL) Date Value 02/02/2024 0.3 AST (U/L) Date Value 02/02/2024 21 ALT (U/L) Date Value 02/02/2024 14 Cholesterol, Total (mg/dL) Date Value 03/30/2017 171 Triglyceride (mg/dL) Date Value 03/30/2017 118 DIAGNOSIS: (D69.3) Chronic ITP (idiopathic thrombocytopenia) (HCC) (primary encounter diagnosis) Plan: LACTATE DEHYDROGENASE, COMPLETE BLOOD COUNT AND DIFFERENTIAL, COMPREHENSIVE METABOLIC PANEL (I10) Essential hypertension Plan: LACTATE DEHYDROGENASE, COMPLETE BLOOD COUNT AND DIFFERENTIAL, COMPREHENSIVE METABOLIC PANEL (G47.33) Obstructive sleep apnea syndrome Plan: LACTATE DEHYDROGENASE, COMPLETE BLOOD COUNT AND DIFFERENTIAL, COMPREHENSIVE METABOLIC PANEL (N18.32) Stage 3b chronic kidney disease (HCC) Plan: LACTATE DEHYDROGENASE, COMPLETE BLOOD COUNT AND DIFFERENTIAL, COMPREHENSIVE METABOLIC PANEL PAST MEDICAL HISTORY Diagnosis Date [...] of 20 minutes on the date of service which included preparing to see the patient, [id number] patient care, completing clinical documentation, obtaining and/or reviewing separately obtained history, performing a medically appropriate examination, counseling and educating the patient/family/caregiver, ordering medications, tests, or procedures, communicating with other HCPs (not separately reported), independently interpreting results (not separately reported), communicating results to the patient/family/caregiver, and care coordination (not separately reported). Rinku Ramsey MD, CPE Hematology and Oncology Services Provided at: [place], [place] Scribe Attestation: This note was scribed by Emani Carr on February 02, 2024 under the direction and supervision of Dr. Rinku Ramsey. I attest that all of the information documented is correct to the best of my knowledge. Provider Attestation: I, Rinku Ramsey MD, attest that all information documented by the above scribe is correct, and was supervised by me and under my direction. CC: Dr. Atif Graf documented in this encounter [facility] 02-02-2024 Note [facility] 01-25-2024 Telephone encounter Note Mushtaq: please sign pended refill, if agreeable Desirae Pimentel RN [facility] 01-25-2024 Miscellaneous Notes Mushtaq: please sign pended refill, if agreeable Desirae Pimentel RN documented in this encounter [facility] 12-18-2023 Miscellaneous Notes 1247: Phase 1 care begins 1313: Pt family updated via message 1405: 975 tylenol given per emr order 1420: Phase 2 care begins documented in this encounter [facility] Work Phone: 12-18-2023 Note Formatting of this n ote might be different from the original. 1247: Phase 1 care begins 1313: Pt family updated via message 1405: 975 tylenol given per emr order 1420: Phase 2 care begins [facility] 12-18-2023 Hospital Discharge instructions Fly Lindo MD - 12/18/2023 12:42 PM EDT Images from the original note were not included. Most ear surgeries should have a 2-4 week postoperative appointment. Please be sure to call the doctor's office and make a follow-up appointment, if you don't already have it. Dressing or Band-Aid can be removed the day after surgery. Once removed, replace the cotton ball in the ear as needed. Once the dressing is off, and if you have an incision behind your ear with stitches, clean the incision twice daily with soap and water and apply Vaseline or antibiotic ointment after cleaning. If you have paper strips or surgical glue over the incision, Do not apply anything behind the ear. Bloody drainage from the ear is common. Call the office if discharge from the ear last longer than 21 days or develops an odor or color. Water should be kept out of the ear until it is healed. You may shower the day after surgery, if you keep your head dry. The hair may be shampooed 2 days following surgery, providing water is not allowed into the ear canal. A cotton ball covered with Vaseline should be used in the ear whenever you are around water. Bloody discharge from incision area may occur during the first 10 days following surgery. If this persists or increases, please call the office. A full sensation with popping sounds may be noticed during the healing process. DO NOT BLOW YOUR NOSE FOR THREE WEEKS FOLLOWING SURGERY. If you sneeze, do so with your mouth open for three weeks following surgery. Do not use a straw to drink beverages for 3 weeks following surgery. Do not use Q-Tips or put anything in the canal, until approved by your doctor. Do not be concerned regarding your hearing for a period of six to eight weeks following surgery. Your hearing will be evaluated at this time; until then, your hearing may sound muffled and your voice may echo in your ear during speech. Minor swelling of the face on the same side of the surgery is not uncommon. Small bruising near the eye or mouth is not uncommon from the facial nerve monitor. Dizziness, ringing in the ear, and taste disturbance after surgery are common. Call if severe. You might notice pain when chewing, please use soft diet for 2 weeks if you experience this. No lifting (more than 10 lbs) or straining until follow up. You will be discharged on pain medications and usually antibiotics. You may resume your routine medications as directed, unless you have been instructed otherwise by the prescribing healthcare provider. Should you experience any difficulty upon returning home, or if you simply have questions, please contact us. As your surgeons, we are most familiar with your operation and postoperative procedures. We are accessible by telephone 24 hours a day, 7 days a week. Once we have assessed your situation, we will be prepared to make specific suggestions for your care. documented in this encounter [facility] Work Phone: 12-18-2023 History and physical note History Of Present Illness Andrei Fish is a 73 y.o. female presenting with left cholesteatoma. Has had a TM perf and conductive hearing loss on the left. Has previous surgery on that side as well. Past Medical History She has a past medical history of Hypertension and Osteoporosis. Surgical History She has a past surgical history that includes Appendectomy; Cholecystectomy; Hysterectomy; and Colonoscopy. Social History She reports that she has been smoking cigarettes. She has a 11.3 pack-year smoking history. She has never used smokeless tobacco. She reports that she does not drink alcohol and does not use drugs. Family History No family history on file. Allergies Vancomycin and Diphtheria,pertussis (acellular),tetanus vaccine Review of Systems Negative except per hpi Physical Exam Vitals reviewed General: Alert, oriented, no acute distress Resp: Breathing comfortably on room air, no stridor Head: Atraumatic, normocephalic Oral Cavity: MMM Ears: normal external ears Nose: midline nose Neck: soft and flat Last Recorded Vitals Blood pressure 150/70, pulse 67, temperature 36.2 C (97.2 F), temperature source Temporal, resp. rate 20, height 1.6 m (5' 3 ), weight 86.9 kg (191 lb 9.3 oz), SpO2 97%. Relevant Results Scheduled medications Continuous medications PRN medications Assessment/Plan Principal Problem: Cholesteatoma of left ear Active Problems: HTN (hypertension) Left recurrent cholesteatoma Plan: -proceed with OR for tympanomastoidectomy with cartilage graft, possible OCR Fly Lindo MD [facility] Work Phone: 12-18-2023 History and physical note History Of Present Illness Andrei Fish is a 73 y.o. female presenting with left cholesteatoma. Has had a TM perf and conductive hearing loss on the left. Has previous surgery on that side as well. Past Medical History She has a past medical history of Hypertension and Osteoporosis. Surgical History She has a past surgical history that includes Appendectomy; Cholecystectomy; Hysterectomy; and Colonoscopy. Social History She reports that she has been smoking cigarettes. She has a 11.3 pack-year smoking history. She has never used smokeless tobacco. She reports that she does not drink alcohol and does not use drugs. Family History No family history on file. Allergies Vancomycin and Diphtheria,pertussis (acellular),tetanus vaccine Review of Systems Negative except per hpi Physical Exam Vitals reviewed General: Alert, oriented, no acute distress Resp: Breathing comfortably on room air, no stridor Head: Atraumatic, normocephalic Oral Cavity: MMM Ears: normal external ears Nose: midline nose Neck: soft and flat Last Recorded Vitals Blood pressure 150/70, pulse 67, temperature 36.2 C (97.2 F), temperature source Temporal, resp. rate 20, height 1.6 m (5' 3 ), weight 86.9 kg (191 lb 9.3 oz), SpO2 97%. Relevant Results Scheduled medications Continuous medications PRN medications Assessment/Plan Principal Problem: Cholesteatoma of left ear Active Problems: HTN (hypertension) Left recurrent cholesteatoma Plan: -proceed with OR for tympanomastoidectomy with cartilage graft, possible OCR Fly Lindo MD documented in this encounter [facility] Work Phone: 12-15-2023 Nurse Note Patient identified by 2 identifiers. EKG performed as ordered. Joanne Alvarez MA [facility] 12-15-2023 Nurse Note Patient identified by 2 identifiers. EKG performed as ordered. Joanne Alvarez MA documented in this encounter [facility] 11-28-2023 Telephone encounter Note Called thanks [facility] 11-28-2023 Miscellaneous Notes Called thanks Dr Graf ( ENT) is requesting to speak w/ you regarding Odes. Please call her @ [phone]. Thanks, Emilia Robins RN documented in this encounter [facility] 11-28-[address] Graf ( ENT) is requesting to speak w/ you regarding Odes. Please call her @ [phone]. Thanks, Emilia Robins RN [facility] Work Phone: 11-24-2023 Instructions Rinku Ramsey MD - 11/24/2023 11:28 AM EDT Continue Tavalisse 100 mg BID Return in 6 weeks for labs and follow up documented in this encounter [facility] 11-24-2023 History of Present illness Narrative Images from the original note were not included. NAME: AbePaulalicia CLINIC NO.: [id number] DATE OF SERVICE: November 24, 2023 (Joon) Some elements in this clinic note that are critical to medical decision making have been carefully reviewed and included from a prior clinic note dated: October 13 2023 (Lizett). Additional Clinicians involved in Andrei Fish's care: Dr. Shay, Dr. Deluna, Dr. Susanna Graf DIAGNOSIS: Chronic ITP ASSESSMENT: 1. Thrombocytopenia (HCC) [...] in future. 7. Osteoporosis--dexa scan 05/17/2023--PCP managing. Will be getting her ear drum repaired with Dr. Prema Graf at and is clear from my perspective to proceed as long as platelets remain above 100k. There shouldn't be any need to stop Tavalisse but if required, she is safe to be off for 2 weeks. PLAN: Continue Tavalisse 100 mg BID Return in 6 weeks for labs and follow up HPI: CASE HISTORY: Reverse Chronological Order 03/29/2023 - US Renal Bilateral: Normal-sized kidneys [...] 2018 - Rituxan X 4 Updated Visit, November 24, 2023: Waiting to get her ear drum repaired. Blood pressure is stable. Tired today. Had an episode of hypotension. Resolved on it's own. Will need to see Vascular surgery because of leg cramps. Updated Visit, October 13, 2023: Andrei returns for follow up. Labs stable. BP slightly elevated, but recently at home 130s/80s. Denies any bleeding or bruising. No more dizzy spells. Waiting for ENT to call her for appointment Updated Visit, August 28, 2023: Andrei returns [...] having a mammogram and dexa scan at [facility] per her PCP. She states that she [...] complaints. Updated Visit, August 04, 2022: Andrei Fish returns for follow-up. She remains on Tavalisse [...] 08/29/2022 and then a follow-up with her bag machine set up operator on 09/07/2022. Overall, she is doing well [...] resolved. Updated Visit, May 12, 2022: Andrei Fish returns for follow-up. She remains on Tavalisse [...] they are slightly increased. Got back from [place] and saw her sisters and had a nice trip with her of 54 yrs. Updated Visit, February 11, 2022: Andrei Fish returns for scheduled follow-up. She remains on [...] well. Updated Visit, December 17, 2021: Andrei Fish returns for scheduled follow-up. She remains on [...] therapy. Updated Visit, September 16, 2021: Andrei Fish returns for follow-up. She remains on Tavalisse [...] concerns. Updated Visit, August 05, 2021: Mrs. Fish returns today and platelets continue to respond. We changed her anti-HTNives and her cough resolved, but today she notes she has a dry cough that returned this past Monday. Doubt this is due to medications. Will continue monitoring her. Updated Visit, July 16, 2021: Andrei Fish returns for follow-up. She remains on Tavalisse [...] why she was going to see a bag machine set up operator for her blood pressure. Patient also has [...] stable. Updated Visit, June 11, 2021: Andrei Fish returns for follow-up. She remains on tab [...] normal. Updated Visit, January 27, 2021: Andrei Fish returns for scheduled follow-up. There has been [...] PERFORMANCE STATUS: 0 PHYSICAL EXAMINATION: Vitals: BP 152/84 Pulse 68 Temp (Src) 97.7 (Temporal) Resp 16 Ht 5' 2.52 (1.59m) Wt 193 lb 5.5 oz (87.7kg) SpO2 100% BMI 34.78 kg/(m^2). Body surface area is 1.97 meters [...] [Tetanus Vac* Unknown Vancomycin Unknown Burning sensation Diphtheria,Pertussi* Rash MEDICATIONS: pilocarpine (SALAGEN) 5 mg tablet Take 1 tablet by mouth three times a day. losartan (COZAAR) 25 mg tablet take 2 tablets by mouth every day at bedtime ergocalciferol 50,000 unit capsule (VITAMIN D2, DRISDOL) Take 1 capsule by mouth one time a week. alendronate (FOSAMAX) 70 mg tablet PLEASE SEE ATTACHED FOR DETAILED DIRECTIONS fostamatinib (TAVALISSE) 100 mg tablet Take 1 tablet by mouth two times a day. hydroCHLOROthiazide 25 mg tablet TAKE 1 TABLET BY MOUTH EVERY DAY spironolactone (ALDACTONE) 25 mg tablet Take 25 mg by mouth once daily. cholecalciferol, vitamin D3, (VITAMIN D3 ORAL) Take by mouth. benzonatate (TESSALON PERLE) 100 mg capsule TAKE 1 CAPSULE BY MOUTH EVERY 6 HOURS NEEDED FOR COUGH. (Patient not taking: Reported on 11/24/2023) LABORATORY VALUES: WBC (k/uL) Date Value 11/24/2023 5.27 RBC (m/uL) Date Value 11/24/2023 3.20 (L) Hemoglobin (g/dL) Date Value 11/24/2023 10.1 (L) Hematocrit (%) Date Value 11/24/2023 32.3 (L) MCV (fL) Date Value 11/24/2023 100.9 (H) MCH (pg) Date Value 11/24/2023 31.6 MCHC (g/dL) Date Value 11/24/2023 31.3 RDW-CV (%) Date Value 11/24/2023 14.1 Platelet Count (k/uL) Date Value 11/24/2023 134 (L) MPV (fL) Date Value 11/24/2023 9.1 Glucose (mg/dL) Date Value 11/24/2023 113 (H) BUN (mg/dL) Date Value 11/24/2023 43 (H) Creatinine (mg/dL) Date Value 11/24/2023 1.36 (H) Sodium (mmol/L) Date Value 11/24/2023 140 Potassium (mmol/L) Date Value 11/24/2023 5.8 (H) Chloride (mmol/L) Date Value 11/24/2023 108 (H) CO2 (mmol/L) Date Value 11/24/2023 24 Protein, Total (g/dL) Date Value 11/24/2023 7.6 Albumin (g/dL) Date Value 11/24/2023 3.8 (L) Calcium, Total (mg/dL) Date Value 11/24/2023 9.8 Alkaline Phosphatase (U/L) Date Value 11/24/2023 57 Bilirubin, Total (mg/dL) Date Value 11/24/2023 0.4 AST (U/L) Date Value 11/24/2023 24 ALT (U/L) Date Value 11/24/2023 15 Cholesterol, Total (mg/dL) Date Value 03/30/2017 171 Triglyceride (mg/dL) Date Value 03/30/2017 118 DIAGNOSIS: (D69.3) Chronic ITP (idiopathic thrombocytopenia) (HCC) (primary encounter diagnosis) (N18.32) Stage 3b chronic kidney disease (HCC) (I15.9) Secondary hypertension (G47.33) Obstructive sleep apnea syndrome PAST MEDICAL [...] of 30 minutes on the date of service which included preparing to see the patient, [id number] patient care, completing clinical documentation, obtaining and/or reviewing separately obtained history, performing a medically appropriate examination, counseling and educating the patient/family/caregiver, ordering medications, tests, or procedures, communicating with other HCPs (not separately reported), independently interpreting results (not separately reported), communicating results to the patient/family/caregiver, and care coordination (not separately reported). Rinku Ramsey MD, CPE Hematology and Oncology Services Provided at: [place], [place] CC: Dr. Chadd Graf documented in this encounter [facility] 11-24-2023 Note [facility] 11-14-2023 History of Present illness Narrative History Of Present Illness: Andrei Fish is a 72 y.o. female whom presents to me as a new patient for left-sided TM perforation, referred here today by Dr. Mar Mayo. She is status post left-sided tympanoplasty with OCR in December of [address] Augie Tyler at [facility]. In 2017, was told by Dr. Tyler that she would require revision surgery for the tympanoplasty as the prosthesis had broken down. However, she was unable to get this revision surgery. She notes that in the past year, hearing in the L ear has become particularly muffled, and endorses intermittent tinnitus. Only one episode of otalgia which occurred yesterday for 5-10 minutes, felt like a sharp pain, and resolved on its own. Denies otorrhea. Pt uses q tips but only on the outside and edges. In the past year, has also been experiencing dizziness, losing balance and leaning more to the L side. Past Med history: Lupus, thrombocytopenia, osteoporosis Past Medical History: She has no past medical history on file. Surgical History: She has no past surgical history on file. Social History: She has no history on file for tobacco use, alcohol use, and drug use. Family History: No family history on file. Medications: No current outpatient medications Allergies: Patient has no allergy information on record. Review of Systems: A comprehensive 10-point review of systems was obtained including constitutional, neurological, HEENT, pulmonary, cardiovascular, genito-urinary, and other pertinent systems and was negative except as noted in the HPI. Physical Exam: Constitutional General appearance: Healthy-appearing, well-nourished, well groomed, in no acute distress. Ability to communicate: Normal communication without aids, normal voice quality. Head and face: Atraumatic with no masses, lesions, or scarring. Facial strength: Normal strength and symmetry, no synkinesis or facial tic. Ears Otoscopic examination: Physical Exam: Ramachandran- lateralizes to R side. Rinne- Right ear AC > BC, Left ear BC> AC. On otoscope exam, R side shows pearly white tympanic membrane. L side shows cholesteatoma present on divet in the roof of canal, close to perforated tympanic membrane. Nose: Dorsum symmetric with no visible or palpable deformities. Oral Cavity/Mouth Lips, teeth, and gums: Normal lips, gums, and dentition. Oropharynx: Mucosa moist, no lesions. Neck: Symmetrical, trachea midline. No masses visible. Neurological/Psychiatric Cranial Nerve Examination: II - XII grossly intact. Orientation to person, place, and time: Normal. Mood and affect: Normal. Romberg test positive- patient sways towards L side Skin: Normal without rashes or lesions. Pulmonary Respiratory effort: Chest expands symmetrically. Cardiovascular: Good peripheral pulses Peripheral vascular system: No varicosities, carotid pulse normal, no edema. No jugular venous distension. Extremities: Appearance of extremities: Normal. Gait normal. Last Recorded Vitals: There were no vitals taken for this visit. Relevant Results: I personally reviewed the CT IAC from 11/14/23 which demonstrated a left-sided cholesteatoma limted to the area of the scutum and to the dome of the HSCC. There is some destruction of the posterior superior bony EAC. Assessment/Plan 72 y.o. female whom presents to me as a new patient for left-sided TM perforation, referred here today by Dr. Mar Mayo. She is status post left-sided tympanoplasty with OCR in December of [address] Augie Tyler at [facility]. Patient's dizziness also is likely d/t tympanic perforation. Patient will require L sided tympanomastoidectomy canal wall up with ossiculoplasty, cartilage graft. Discussed risks and benefits with patient. Tamela Garsia, MS4 I have reviewed the documentation as scribed by Tamela Garsia and agree with the notes. Susanna Graf MD documented in this encounter [facility] Work Phone: 11-14-2023 Instructions Nereida Stewart - 11/14/2023 1:45 PM EDT Welcome to Dr. Graf's clinic. We are here to assist you through your ENT care at [facility]. Dr. Graf is an Ear surgeon. This means that she specializes in taking care of patients with complex ear problems. Dr. Graf's office number is [phone]. While you may see her at a satellite office, she has a team committed to help meet your healthcare needs at [facility]. This number is the most direct way to communicate with the office. Jasmyne is Dr. Graf's construction secretary and she answers the office phone from 8am-4pm Mon-Mon. She can help you with many general questions and information. Questions that she cannot answer will be directed to the appropriate staff. You may need to leave a message. In this case, someone from the team will call you back. Marshal Yi RN, is Dr. Graf's primary nurse and can be reached by calling the office. Marshal is in clinic with Dr. Graf's on Mondays and Tuesdays. Non-urgent calls will be returned on non-clinic days typically . Sometimes, other team members will also be involved in your care. These people may include dieticians, social workers, speech therapists, mixing supervisor, neurologist, and physical therapist. Dr. Graf will provide these referrals as needed. Please let her know if you would like to request a specific referral. For your convenience, Dr. Graf sees patients at several [facility] locations including [facility] and [facility] at the main [place] of [facility]. While we try to make your appointments as convenient as possible, occasionally a visit to another location may be necessary to provide the best care for you. We look forward to working with you to meet your healthcare goals. Dr. Graf makes every effort to run on time for your appointments. Therefore, if you are more than 30 minutes late unrelated to a scan or another appointment such therapy or audio you will have to reschedule. documented in this encounter [facility] Work Phone: 10-13-2023 Note [facility] 09-04-2023 Miscellaneous Notes The following approved medication requests have been transmitted electronically. Requested Prescriptions Signed Prescriptions Disp Refills losartan (COZAAR) 25 mg tablet 180 tablet 3 Sig: take 2 tablets by mouth every day at bedtime Authorizing Provider: JAYDEN CONNELLY APRN.AREA FIELD MANAGER documented in this encounter [facility] 08-28-2023 Instructions Rinku Ramsey MD - 08/28/2023 2:54 PM EST Continue Tavalisse 100 mg twice daily. Follow up in 6 weeks with labs. documented in this encounter [facility] 08-28-2023 History of Present illness Narrative Images from the original note were not included. NAME: Andrei Fish [facility] NO.: [id number] DATE OF SERVICE: August 28, 2023 ([facility]) Some elements in this clinic note that are critical to medical decision making have been carefully reviewed and included from a prior clinic note dated: July 17, 2023 (Joon) Additional Clinicians involved in Paulalicia Ruben Abe's care: Dr. Shay, Dr. Deluna DIAGNOSIS: Chronic [...] having a mammogram and dexa scan at [facility] per her PCP. She states that she [...] complaints. Updated Visit, August 04, 2022: Andrei Fish returns for follow-up. She remains on Tavalisse [...] 08/29/2022 and then a follow-up with her bag machine set up operator on 09/07/2022. Overall, she is doing well [...] resolved. Updated Visit, May 12, 2022: Andrei Fish returns for follow-up. She remains on Tavalisse [...] they are slightly increased. Got back from [place] and saw her sisters and had a nice trip with her of 54 yrs. Updated Visit, February 11, 2022: Andrei Fish returns for scheduled follow-up. She remains on [...] well. Updated Visit, December 17, 2021: Andrei Fish returns for scheduled follow-up. She remains on Tavalisse and is tolerating it well. She denies any signs of bleeding or abnormal bruising. No signs of blood clots. She had a consultation with nephrology, Dr. Gilosn Sarah. Dr. Sarah increased her losartan to [...] therapy. Updated Visit, September 16, 2021: Andrei Fish returns for follow-up. She remains on Tavalisse [...] concerns. Updated Visit, August 05, 2021: Mrs. Fish returns today and platelets continue to respond. We changed her anti-HTNives and her cough resolved, but today she notes she has a dry cough that returned this past Monday. Doubt this is due to medications. Will continue monitoring her. Updated Visit, July 16, 2021: Andrei Fish returns for follow-up. She remains on Tavalisse [...] why she was going to see a bag machine set up operator for her blood pressure. Patient also has [...] stable. Updated Visit, June 11, 2021: Andrei Fish returns for follow-up. She remains on tab [...] normal. Updated Visit, January 27, 2021: Andrei Fish returns for scheduled follow-up. There has been [...] to Tavalisse. Updated Visit, December 05, 2019: nAdrei is 69 years old and returns having [...] which included preparing to see the patient, [id number] patient care, completing clinical documentation, performing a medically appropriate examination, counseling and educating the patient/family/caregiver, ordering medications, tests, or procedures, independently interpreting results (not separately reported), communicating results to the patient/family/caregiver, and care coordination (not separately reported). Rinku Ramsey MD, CPE Hematology and Oncology Services Provided at: [place], [place] Scribe Attestation: This note was scribed by Emani Carr on August 28, 2023 under the [...] Dr. Chadd Deluna documented in this encounter [facility] 08-28-2023 Note [facility] 08-23-2023 History of Present illness Narrative Subjective Patient ID: Andrei Fish is a 72 y.o. female who presents for Ear Problem (Left TM perf). Pt had an apparent left tympanoplasty and OCR in December 2015. Pt states she was told there would need to be revision surgery. Saw another ENT in [place] who was to do the revision, but [...] Diagnosis Date Noted Chronic ITP (idiopathic thrombocytopenia) ([facility]) 05/26/2016 Disease of thyroid gland ([facility]) 06/28/2022 Essential hypertension ([facility]) 05/13/2021 Family history of breast cancer 04/13/2017 Lupus ([facility]) 03/03/2016 Nocturnal leg cramps 10/05/2017 Obstructive sleep apnea syndrome 05/13/2021 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[facility]) 06/28/2022 Tobacco dependence 06/28/2022 Dry mouth 01/05/2017 Compression syndrome, nerve 06/28/2022 Abnormal weight loss 03/03/2016 Age-related osteoporosis without current pathological fracture ([facility]) 06/06/2023 Ruptured ear drum, left 06/06/2023 Leg pain, bilateral 06/06/2023 Left wrist pain 06/06/2023 Obesity (BMI 30-39.9) 06/06/2023 Claudication of both lower extremities ([facility]) 06/08/2023 PAD (peripheral artery disease) ([facility]) 06/08/2023 Resolved Ambulatory Problems Diagnosis Date Noted No Resolved Ambulatory Problems Past Medical History: Diagnosis Date Hypertension ([facility]) Past Surgical History: Procedure Laterality Date APPENDECTOMY BI MAMMO GUIDED LOCALIZATION BREAST LEFT Left 03/28/2017 BI MAMMO GUIDED LOCALIZATION BREAST LEFT 03/28/2017 BREAST BIOPSY Left BREAST LUMPECTOMY Left 07/2015 BREAST SURGERY CHOLECYSTECTOMY COLONOSCOPY 2008 EYE SURGERY FRACTURE SURGERY Left leg HYSTERECTOMY Allergies Allergen Reactions Vancomycin Other States had burning sensation t/o entire body. (Infectious disease) States medication was given too fast. Zudwjpk-Ysoejg-Tycdo Pertussis Rash Current Outpatient Medications on File [...] ABG. I will refer pt to Dr Graf at to be evaluated for revision surgery documented in this encounter [facility] 08-16-2023 History of Present illness Narrative History: Pt was referred to ENT because of left TM perforation and left hearing loss. Onset of perforation was a few years ago Pt saw ENT in [place] that was going to repair the perforation [...] Ear: No seal documented in this encounter [facility] 07-17-2023 Note [facility] 06-28-2023 Evaluation note Encounter Date [...] Her CT scan results reviewed from the [place] [facility] which also showed bilateral renal cysts. [...] oral vitamin D 50,000 unit once weekly. [employer] Other [id number] [facility] History of Present illness Narrative* Ana Phoenix PA-C - 06/05/2023 8:47 AM EST Images from the original note were not included. NAME: Fish [facility] NO.: [id number] DATE OF SERVICE: June 05, 2023 ([place]) (Elements copied from Dr. Ramsye's note dated April 20, 2023, have been reviewed and updated where appropriate, and all reflect current assessment and medical decision making during today's encounter, June 05, 2023) Additional Clinicians involved in Andrei Abe's care: Dr. Shay, Dr. Deluna CC: [...] having a mammogram and dexa scan at [facility] per her PCP. She states that she [...] complaints. Updated Visit, August 04, 2022: Andrei Fish returns for follow-up. She remains on Tavalisse [...] 08/29/2022 and then a follow-up with her bag machine set up operator on 09/07/2022. Overall, she is doing well [...] resolved. Updated Visit, May 12, 2022: Andrei Fish returns for follow-up. She remains on Tavalisse [...] as they are slightlyincreased. Got back from [place] and saw her sisters and had a nice trip with her of 54 yrs. Updated Visit, February 11, 2022: Andrei Fish returns for scheduled follow-up. She remains on [...] well. Updated Visit, December 17, 2021: Andrei Fish returns for scheduled follow-up. She remains on [...] therapy. Updated Visit, September 16, 2021: Andrei Fish returns for follow-up. She remains on Tavalisse [...] concerns. Updated Visit, August 05, 2021: Mrs. Fish returns today and platelets continue to respond. We changed her anti-HTNives and her cough resolved, but today she notes she has a dry cough that returned this past Monday. Doubt this is due to medications. Will continue monitoring her. Updated Visit, July 16, 2021: Andrei Fish returns for follow-up. She remains on Tavalisse [...] why she was going to see a bag machine set up operator for her blood pressure. Patient also has [...] stable. Updated Visit, June 11, 2021: Andrei Fish returns for follow-up. She remains on tab [...] wasnormal. Updated Visit, January 27, 2021: Andrei Fish returns for scheduled follow-up. There has been [...] which included preparing to see the patient, [id number] patient care, completing clinical documentation, obtaining and/or reviewing separately obtained history, performing a medically appropriate examination, counseling and educating the pat ient/family/caregiver, ordering medications, tests, or procedures, independently interpreting results (not separately reported), communicating results to the patient/family/caregiver, and care coordination (not separately reported). Ana Phoenix PA-C CC: Dr. Chadd Deluna [facility] Miscellaneous Notes* Telephone Encounter - Krista Harden RPh - 05/01/2023 2:44 PM EDT Please Fax RX to [facility] for [facility] @ [phone] Emiliano Harden, PharmD, BCOP documented in this encounterPrem[facility]10-12-2023 Instructions* Patient Instructions* Rinku Ramsey MD - 04/20/2023 10:47 AM EDT Continue Tavalisse 100 mg twice daily. Follow up in 6 weeks with labs. documented in this encounterPrem[facility]10-12-[facility]23 [facility] History of Present illness Narrative* Rinku Ramsey MD - 04/20/2023 10:30 AM EDT Images from the original note were not included. NAME: Andrei Fish [facility] NO.: [id number] DATE OF SERVICE: April 20, 2023 ([facility]) Some elements in this clinic note that are critical to medical decision making have been carefully reviewed and included from a prior clinic note dated: March 09, 2023 (Joon) Additional Clinicians involved in Andrei Fish's care: Dr. Shay, Dr. Deluna CC: Chronic [...] 4 HPI: Updated Visit, April 20, 2023: Andrie is doing well and platelets 127k. Saw [...] complaints. Updated Visit, August 04, 2022: Andrei Fish returns for follow-up. She remains on Tavalisse [...] 08/29/2022 and then a follow-up with her bag machine set up operator on 09/07/2022. Overall, she is doing well [...] resolved. Updated Visit, May 12, 2022: Andrei Fish returns for follow-up. She remains on Tavalisse [...] as they are slightlyincreased. Got back from [place] and saw her sisters and had a nice trip with her of 54 yrs. Updated Visit, February 11, 2022: Andrei Fish returns for scheduled follow-up. She remains on [...] well. Updated Visit, December 17, 2021: Andrei Fish returns for scheduled follow-up. She remains on [...] therapy. Updated Visit, September 16, 2021: Andrei Fish returns for follow-up. She remains on Tavalisse [...] concerns. Updated Visit, August 05, 2021: Mrs. Fish returns today and platelets continue to respond. We changed her anti-HTNives and her cough resolved, but today she notes she has a dry cough that returned this past Monday. Doubt this is due to medications. Will continue monitoring her. Updated Visit, July 16, 2021: Andrei Fish returns for follow-up. She remains on Tavalisse [...] why she was going to see a bag machine set up operator for her blood pressure. Patient also has [...] stable. Updated Visit, June 11, 2021: Andrei Fish returns for follow-up. She remains on tab [...] wasnormal. Updated Visit, January 27, 2021: Andrei Fish returns for scheduled follow-up. There has been [...] which included preparing to see the patient, [id number] patient care, completing clinical documentation, obtaining and/or reviewing separately obtained history, performing a medically appropriate examination, counseling and educating the pat ient/family/caregiver, ordering medications, tests, or procedures, independently interpreting results (not separately reported), communicating results to the patient/family/caregiver, and care coordination (not separately reported). Rinku Ramsey MD, CPE Hematology and Oncology Services Provided at: [place], [place] CC: Dr. Chadd Deluna documented in this encounterPrem[facility]10-11-2023 Miscellaneous Notes* Telephone Encounter - Joanne Alvarez - 04/19/2023 4:02 PM EDT Patient has an appt on 04/20. Would you like labs? documented in this encounterPremier [facility]09-05-2023 Evaluation note* Encounter Date Diagnosis Assessment Notes Treatment Notes Treatment Clinical Notes Mar, Complex renal cyst (ICD-10 - N28.1) [employer] Other [id number] Instructions* Patient Instructions* Rinku Ramsey MD - 03/09/2023 2:54 PM EDT Continue Tavalisse 100 mg twice daily. Follow up in 6 weeks with labs. documented in this encounterPremier [facility]08-31-2023 [facility]Tr[facility]08-[facility]23 History of Present illness Narrative* Rinku Ramsey MD - 03/09/2023 2:50 PM EDT Images from the original note were not included. NAME: FishAndrei [facility] NO.: [id number] DATE OF SERVICE: March 09, 2023 (Joon) Some elements in this clinic note that are critical to medical decision making have been carefully reviewed and included from a prior clinic note dated: January 26, 2023 (Joon) Additional Clinicians involved in Paulalicia Fish's care: Dr. Shay, Dr. Deluna CC: Chronic [...] complaints. Updated Visit, August 04, 2022: Andrei Fish returns for follow-up. She remains on Tavalisse [...] 08/29/2022 and then a follow-up with her bag machine set up operator on 09/07/2022. Overall, she is doing well [...] resolved. Updated Visit, May 12, 2022: Andrei Fish returns for follow-up. She remains on Tavalisse [...] as they are slightlyincreased. Got back from [place] and saw her sisters and had a nice trip with her of 54 yrs. Updated Visit, February 11, 2022: Andrei Fish returns for scheduled follow-up. She remains on [...] well. Updated Visit, December 17, 2021: Andrei Fish returns for scheduled follow-up. She remains on [...] therapy. Updated Visit, September 16, 2021: Andrei Fish returns for follow-up. She remains on Tavalisse [...] concerns. Updated Visit, August 05, 2021: Mrs. Fish returns today and platelets continue to respond. We changed her anti-HTNives and her cough resolved, but today she notes she has a dry cough that returned this past Monday. Doubt this is due to medications. Will continue monitoring her. Updated Visit, July 16, 2021: Andrei Fish returns for follow-up. She remains on Tavalisse [...] why she was going to see a bag machine set up operator for her blood pressure. Patient also has [...] stable. Updated Visit, June 11, 2021: Andrei Fish returns for follow-up. She remains on tab [...] wasnormal. Updated Visit, January 27, 2021: Andrei Fish returns for scheduled follow-up. There has been [...] which included preparing to see the patient, psgg-[id number]-[id number] patient care, completing clinical documentation, performing a medically appropriate examination, counseling and educating the patient/family/caregiver, ordering medications, tests, or p rocedures, and independently interpreting results (not separately reported). Rinku Ramsey MD, CPE Hematology and Oncology Services Provided at: [place], [place] CC: Dr. Chadd Deluna documented in this encounterPremier [facility]07-20-2023 Instructions* Patient Instructions* Rinku Ramsey MD - 01/26/2023 3:14 PM EDT Continue Tavalisse 100 mg twice daily. Follow up in 6 weeks with labs. documented in this encounterPremier Health [facility]07-20-2023 History of Present illness Narrative* Rinku Ramsey MD - 01/26/2023 3:10 PM EDT NAME: Andrei Fish [facility] NO.: [id number] DATE OF SERVICE: January 26, 2023 (fabiola) Some elements in this clinic note that are critical to medical decision making have been carefully reviewed and included from a prior clinic note dated: December 15, 2022 (Joon) Additional Clinicians involved in Andrei Fish's care: Dr. Shay, Dr. Deluna CC: Chronic [...] complaints. Updated Visit, August 04, 2022: Andrei Fish returns for follow-up. She remains on Tavalisse [...] 08/29/2022 and then a follow-up with her bag machine set up operator on 09/07/2022. Overall, she is doing well [...] resolved. Updated Visit, May 12, 2022: Andrei Fish returns for follow-up. She remains on Tavalisse [...] as they are slightlyincreased. Got back from [place] and saw her sisters and had a nice trip with her of 54 yrs. Updated Visit, February 11, 2022: Andrei Fish returns for scheduled follow-up. She remains on [...] well. Updated Visit, December 17, 2021: Andrei Fish returns for scheduled follow-up. She remains on [...] therapy. Updated Visit, September 16, 2021: Andrei Fish returns for follow-up. She remains on Tavalisse [...] concerns. Updated Visit, August 05, 2021: Mrs. Fish returns today and platelets continue to respond. We changed her anti-HTNives and her cough resolved, but today she notes she has a dry cough that returned this past Monday. Doubt this is due to medications. Will continue monitoring her. Updated Visit, July 16, 2021: Andrei Fish returns for follow-up. She remains on Tavalisse [...] why she was going to see a bag machine set up operator for her blood pressure. Patient also has [...] stable. Updated Visit, June 11, 2021: Andrei Fish returns for follow-up. She remains on tab [...] wasnormal. Updated Visit, January 27, 2021: Andrei Fish returns for scheduled follow-up. There has been [...] which included preparing to see the patient, [id number] patient care, completing clinical documentation, performing a medically appropriate examination, counseling and educating the patient/family/caregiver, ordering medications, tests, or p rocedures, and independently interpreting results (not separately reported). Rinku Ramsey MD, CPE Hematology and Oncology Services Provided at: [place], [place] CC: Dr. Chadd Deluna documented in this encounterPremier Health [facility]06-08-2023 Instructions* Patient Instructions* Rinku Ramsey MD - 12/15/2022 2:39 PM EDT Continue Tavalisse 100 mg twice daily. Follow up in 6 weeks with labs. documented in this encounterPremier Health At[facility] Center06-08-2023 History of Present illness Narrative* Rinku Ramsey MD - 12/15/2022 2:35 PM EDT Images from the original note were not included. NAME: Andrei Fish [facility] NO.: [id number] DATE OF SERVICE: December 15, 2022 ([facility]) Some elements in this clinic note that are critical to medical decision making have been carefully reviewed and included from a prior clinic note dated: October 27, 2022 (Joon) Additional Clinicians involved in Andrei Fish's care: Dr. Shay, Dr. Deluna CC: Chronic [...] complaints. Updated Visit, August 04, 2022: Andrei Fish returns for follow-up. She remains on Tavalisse [...] 08/29/2022 and then a follow-up with her bag machine set up operator on 09/07/2022. Overall, she is doing well [...] resolved. Updated Visit, May 12, 2022: Andrei Fish returns for follow-up. She remains on Tavalisse [...] as they are slightlyincreased. Got back from [place] and saw her sisters and had a nice trip with her of 54 yrs. Updated Visit, February 11, 2022: Andrei Fish returns for scheduled follow-up. She remains on [...] well. Updated Visit, December 17, 2021: Andrei Fish returns for scheduled follow-up. She remains on [...] therapy. Updated Visit, September 16, 2021: Andrei Fish returns for follow-up. She remains on Tavalisse [...] concerns. Updated Visit, August 05, 2021: Mrs. Fish returns today and platelets continue to respond. We changed her anti-HTNives and her cough resolved, but today she notes she has a dry cough that returned this past Monday. Doubt this is due to medications. Will continue monitoring her. Updated Visit, July 16, 2021: Andrei Fish returns for follow-up. She remains on Tavalisse [...] why she was going to see a bag machine set up operator for her blood pressure. Patient also has [...] stable. Updated Visit, June 11, 2021: Andrei Fish returns for follow-up. She remains on tab [...] wasnormal. Updated Visit, January 27, 2021: Andrei Fish returns for scheduled follow-up. There has been [...] which included preparing to see the patient, [id number] patient care, completing clinical documentation, performing a medically appropriate examination, counseling and educating the patient/family/caregiver, ordering medications, tests, or p rocedures, and independently interpreting results (not separately reported). Rinku Ramsey MD, CPE Hematology and Oncology Services Provided at: [place], [place] CC: Dr. Chadd Deluna documented in this encounterPremier Health [facility] Center04-20-2023 Instructions* Patient Instructions* Rinku Ramsey MD - 10/27/2022 3:37 PM EDT Continue Tavalisse 100 mg twice daily. (Actually takes 2 pills at the same time) Follow up in 6 weeks with labs. documented in this encounterPremier Health [facility] Center04-20-2023 History of Present illness Narrative* Rinku Ramsey MD - 10/27/2022 3:34 PM EDT Images from the original note were not included. NAME: AbeAndrei CLINIC NO.: [id number] DATE OF SERVICE: October 27, 2022 (Joon) Some elements in this clinic note that are critical to medical decision making have been carefully reviewed and included from a prior clinic note dated: September 15, 2022 (Joon) Additional Clinicians involved in Andrei Fish's care: Dr. Shay, Dr. Deluna CC: Chronic [...] complaints. Updated Visit, August 04, 2022: Andrei Fish returns for follow-up. She remains on Tavalisse [...] 08/29/2022 and then a follow-up with her bag machine set up operator on 09/07/2022. Overall, she is doing well [...] resolved. Updated Visit, May 12, 2022: Andrei Fish returns for follow-up. She remains on Tavalisse [...] as they are slightlyincreased. Got back from [place] and saw her sisters and had a nice trip with her of 54 yrs. Updated Visit, February 11, 2022: Andrei Fish returns for scheduled follow-up. She remains on [...] well. Updated Visit, December 17, 2021: Andrei Fish returns for scheduled follow-up. She remains on [...] therapy. Updated Visit, September 16, 2021: Andrei Fish returns for follow-up. She remains on Tavalisse [...] concerns. Updated Visit, August 05, 2021: Mrs. Fish returns today and platelets continue to respond. We changed her anti-HTNives and her cough resolved, but today she notes she has a dry cough that returned this past Monday. Doubt this is due to medications. Will continue monitoring her. Updated Visit, July 16, 2021: Andrei Fish returns for follow-up. She remains on Tavalisse [...] why she was going to see a bag machine set up operator for her blood pressure. Patient also has [...] stable. Updated Visit, June 11, 2021: Andrei Fish returns for follow-up. She remains on tab [...] wasnormal. Updated Visit, January 27, 2021: Andrei Fish returns for scheduled follow-up. There has been [...] which included preparing to see the patient, [id number] patient care, completing clinical documentation, performing a medically appropriate examination, counseling and educating the patient/family/caregiver, ordering medications, tests, or p rocedures, and independently interpreting results (not separately reported). Rinku Ramsey MD, CPE Hematology and Oncology Services Provided at: [place], [place] CC: Dr. Chadd Deluna documented in this encounterPremier Health [facility] Center03-17-2023 Miscellaneous Notes* Telephone Encounter - Joanne Alvarez - 09/23/2022 9:24 AM EDT Patient would like script for 90 days please. Joanne Alvarez documented in this encounterPremier Health At[facility] Center03-10-2023 Miscellaneous Notes* Telephone Encounter - Rinku Ramsey MD - 09/16/2022 3:30 PM EST This really should go through her PCP documented in this [facility]03-09-2023 Instructions* Patient Instructions* Rinku Ramsey MD - 09/15/2022 3:53 PM EST Continue Tavalisse 100 mg twice daily. (Actually takes 2 pills at the same time) Losartan was increased by nephrology. Taking Losartan 50 mg daily. Continue HCTZ. Follow up in 6 weeks with labs. documented in this encounterPremier Health [facility] Center03-09-2023 History of Present illness Narrative* Rinku Ramsey MD - 09/15/2022 3:34 PM EST Images from the original note were not included. NAME: Andrei Fish [facility] NO.: [id number] DATE OF SERVICE: September 15, 2022 (Joon) Some elements in this clinic note that are critical to medical decision making have been carefully reviewed and included from a prior clinic note dated: August 04, 2021 ([facility]) Additional Clinicians involved in Andrei Fish's care: Dr. Shay, Dr. Deluna CC: Chronic [...] complaints. Updated Visit, August 04, 2022: Andrei Fish returns for follow-up. She remains on Tavalisse [...] 08/29/2022 and then a follow-up with her bag machine set up operator on 09/07/2022. Overall, she is doing well [...] resolved. Updated Visit, May 12, 2022: Andrei Fish returns for follow-up. She remains on Tavalisse [...] as they are slightlyincreased. Got back from [place] and saw her sisters and had a nice trip with her of 54 yrs. Updated Visit, February 11, 2022: Andrei Fish returns for scheduled follow-up. She remains on [...] well. Updated Visit, December 17, 2021: Andrei Fish returns for scheduled follow-up. She remains on [...] therapy. Updated Visit, September 16, 2021: Andrei Fish returns for follow-up. She remains on Tavalisse [...] concerns. Updated Visit, August 05, 2021: Mrs. Fish returns today and platelets continue to respond. We changed her anti-HTNives and her cough resolved, but today she notes she has a dry cough that returned this past Monday. Doubt this is due to medications. Will continue monitoring her. Updated Visit, July 16, 2021: Andrei Fish returns for follow-up. She remains on Tavalisse [...] why she was going to see a bag machine set up operator for her blood pressure. Patient also has [...] stable. Updated Visit, June 11, 2021: Andrei Fish returns for follow-up. She remains on tab [...] wasnormal. Updated Visit, January 27, 2021: Andrei Fish returns for scheduled follow-up. There has been [...] which included preparing to see the patient, [id number] patient care, completing clinical documentation, performing a medically appropriate examination, counseling and educating the patient/family/caregiver, ordering medications, tests, or p rocedures, and independently interpreting results (not separately reported). Rinku Ramsey MD, CPE Hematology and Oncology Services Provided at: [place], [place] CC: Dr. Chadd Deluna documented in this encounterPremier Health [facility]03-01-2023 Evaluation note* Encounter Date Diagnosis [...] (ICD-10 - D64.9) She follows with [facility] Other 01-27-2023 Miscellaneous Notes* Telephone Encounter - Jayden Connelly [...] appropriate Jayden Connelly APRN.STEPH documented in this encounterPremier Health Atrium Medical Center01-26-2023 Miscellaneous Notes* Telephone Encounter - Karen Muñoz - 08/04/2022 2:40 PM EST Patient wanted to hold off on being referred to Dermatology at this time. She is going to check with her insurance company for in network providers and let our office know on where she would like to be referred to. Karen Muñoz documented in this encounterPremier Health Atrium [facility] Center01-26-2023 History of Present illness Narrative* Jayden Connelly APRN.CNP - 08/04/2022 2:04 PM EST Images from the original note were not included. NAME: FishAndrei CLINIC NO.: [id number] DATE OF SERVICE: August 04, 2021 ([facility]) Some elements in this clinic note that are critical to medical decision making have been carefully reviewed and included from a prior clinic note dated: June 23, 2022. (Dr. Ramsey) Additional Clinicians involved in Andrei Fish's care: Dr. Shay, Dr. Deluna CC: Chronic [...] HPI: Updated Visit, August 04, 2022: Andrei Fihs returns for follow-up. She remains on Tavalisse [...] 08/29/2022 and then a follow-up with her bag machine set up operator on 09/07/2022. Overall, she is doing well [...] resolved. Updated Visit, May 12, 2022: Andrei Fish returns for follow-up. She remains on Tavalisse [...] as they are slightlyincreased. Got back from [place] and saw her sisters and had a nice trip with her of 54 yrs. Updated Visit, February 11, 2022: Andrei Fish returns for scheduled follow-up. She remains on [...] well. Updated Visit, December 17, 2021: Andrei Fish returns for scheduled follow-up. She remains on [...] therapy. Updated Visit, September 16, 2021: Andrei Fish returns for follow-up. She remains on Tavalisse [...] concerns. Updated Visit, August 05, 2021: Mrs. Fish returns today and platelets continue to respond. We changed her anti-HTNives and her cough resolved, but today she notes she has a dry cough that returned this past Monday. Doubt this is due to medications. Will continue monitoring her. Updated Visit, July 16, 2021: Andrei Fish returns for follow-up. She remains on Tavalisse [...] why she was going to see a bag machine set up operator for her blood pressure. Patient also has [...] stable. Updated Visit, June 11, 2021: Andrei Fish returns for follow-up. She remains on tab [...] wasnormal. Updated Visit, January 27, 2021: Andrei Fish returns for scheduled follow-up. There has been [...] APRN.CNP Hematology and Oncology Services Provided at: [place], [place] CC: Dr. Chadd Deluna I spent a total of 30 minutes on the date of the service which included preparing to see the patient, [id number] patient care, completing clinical documentation, obtaining and/or reviewing separately obtained history, performing a medically appropriate examination, counseling and educating the pat ient/family/caregiver, ordering medications, tests, or procedures, independently interpreting results (not separately reported), and communicating results to the patient/family/caregiver. documented in this encounterPremier Health [facility] Center01-16-2023 Miscellaneous Notes* Telephone Encounter - Jayden Connelly APRN.CNP - 07/25/2022 10:33 AM EST The following approved medication requests have been transmitted electronically. Requested Prescriptions Signed Prescriptions Disp Refills benzonatate (TESSALON PERLE) 100 mg capsule 100 capsule 0 Sig: TAKE 1 CAPSULE BY MOUTH EVERY 6 HOURS NEEDED FOR COUGH. Authorizing Provider: JAYDEN CONNELLY APRN.CNP documented in this encounterPremier Health [facility] Center01-04-2023 Miscellaneous Notes* Telephone Encounter - Jayden Connelly APRN.CNP - 07/13/2022 4:01 PM EST The following approved medication requests have been transmitted electronically. Requested Prescriptions Signed Prescriptions Disp Refills losartan (COZAAR) 25 mg tablet 60 tablet 1 Sig: TAKE 2 TABLETS BY MOUTH EVERY DAY Authorizing Provider: JAYDEN CONNELLY APRN.AREA FIELD MANAGER documented in this encounterPremier Health Atrium Medical Center12-15-2022 Instructions* Patient Instructions* Rinku Ramsey MD - 06/23/2022 2:44 PM EST Continue Tavalisse 100 mg twice daily. Losartan was increased by nephrology. Taking Losartan 50 mg daily. Continue HCTZ. Right read lesion - trial of ice. Follow up in 6 weeks with labs. See Jayden please. - consider biopsy of right raed. documented in this encounterPremier Health Atrium [facility] Center12-15-2022 History of Present illness Narrative* Rinuk Ramsey MD - 06/23/2022 2:30 PM EST Images from the original note were not included. NAME: Andrei Fish CLINIC NO.: [id number] DATE OF SERVICE: June 23, 2022 (Joon) Some elements in this clinic note that are critical to medical decision making have been carefully reviewed and included from a prior clinic note dated: May 12, 2022 ([facility]) Additional Clinicians involved in Andrei Fish's care: Dr. Shay, Dr. Deluna CC: Chronic [...] resolved. Updated Visit, May 12, 2022: Andrei Fish returns for follow-up. She remains on Tavalisse [...] as they are slightlyincreased. Got back from [place] and saw her sisters and had a nice trip with her of 54 yrs. Updated Visit, February 11, 2022: Andrei Fish returns for scheduled follow-up. She remains on [...] well. Updated Visit, December 17, 2021: Andrei Fish returns for scheduled follow-up. She remains on [...] therapy. Updated Visit, September 16, 2021: Andrei Fish returns for follow-up. She remains on Tavalisse [...] concerns. Updated Visit, August 05, 2021: Mrs. iFsh returns today and platelets continue to respond. We changed her anti-HTNives and her cough resolved, but today she notes she has a dry cough that returned this past Monday. Doubt this is due to medications. Will continue monitoring her. Updated Visit, July 16, 2021: Andrei Fish returns for follow-up. She remains on Tavalisse [...] why she was going to see a bag machine set up operator for her blood pressure. Patient also has [...] stable. Updated Visit, June 11, 2021: Andrei Fish returns for follow-up. She remains on tab [...] wasnormal. Updated Visit, January 27, 2021: Andrei Fish returns for scheduled follow-up. There has been [...] which included preparing to see the patient, [id number] patient care, completing clinical documentation, performing a medically appropriate examination, counseling and educating the patient/family/caregiver, ordering medications, tests, or p rocedures, and independently interpreting results (not separately reported). Rinku Ramsey MD, CPE Hematology and Oncology Services Provided at: [place], [place] CC: Dr. Chadd Deluna documented in this encounterPremier Health At[facility] Center11-11-2022 Miscellaneous Notes* Telephone Encounter - Jayden Connelly APRN.CNP - 05/20/2022 3:34 PM EST The following approved medication requests have been transmitted electronically. Requested Prescriptions Signed Prescriptions Disp Refills losartan (COZAAR) 25 mg tablet 60 tablet 1 Sig: TAKE 2 TABLETS BY MOUTH EVERY DAY Authorizing Provider: JAYDEN CONNELLY APRN.CNP documented in this encounterPremier Health Atrium [facility] Center11-03-2022 History of Present illness Narrative* Jayden Connelly APRN.CNP - 05/12/2022 2:15 PM EDT NAME: Andrei Fish CLINIC NO.: [id number] DATE OF SERVICE: May 12, 2022 ([facility]) Some elements in this clinic note that are critical to medical decision making have been carefully reviewed and included from a prior clinic note dated: March 31, 2022 (Dr. Ramsey) Additional Clinicians involved in Paulalicia Fish's care: Dr. Shay, Dr. Deluna CC: Chronic [...] HPI: Updated Visit, May 12, 2022: Andrei Fish returns for follow-up. She remains on Tavalisse [...] as they are slightlyincreased. Got back from [place] and saw her sisters and had a nice trip with her of 54 yrs. Updated Visit, February 11, 2022: Andrei Fish returns for scheduled follow-up. She remains on [...] well. Updated Visit, December 17, 2021: Andrei Fish returns for scheduled follow-up. She remains on [...] therapy. Updated Visit, September 16, 2021: Andrei Fish returns for follow-up. She remains on Tavalisse [...] concerns. Updated Visit, August 05, 2021: Mrs. Fish returns today and platelets continue to respond. We changed her anti-HTNives and her cough resolved, but today she notes she has a dry cough that returned this past Monday. Doubt this is due to medications. Will continue monitoring her. Updated Visit, July 16, 2021: Andrei Fish returns for follow-up. She remains on Tavalisse [...] why she was going to see a bag machine set up operator for her blood pressure. Patient also has [...] stable. Updated Visit, June 11, 2021: Andrei Fish returns for follow-up. She remains on tab [...] wasnormal. Updated Visit, January 27, 2021: Andrei Fish returns for scheduled follow-up. There has been [...] APRN.STEPH Hematology and Oncology Services Provided at: [place], [place] CC: Dr. Chadd Deluna I spent a total of 30 minutes on the date of the service which included preparing to see the patient, [id number] patient care, completing clinical documentation, obtaining and/or reviewing separately obtained history, performing a medically appropriate examination, counseling and educating the pat ient/family/caregiver, ordering medications, tests, or procedures, independently interpreting results (not separately reported), and communicating results to the patient/family/caregiver. documented in this encounterPremier Health Atrium [facility] Center09-22-2022 Instructions* Patient Instructions* Rinku Ramsey MD - 03/31/2022 2:50 PM EDT 1. Continue Tavalisse. 2. Losartan was increased by nephrology. Taking Losartan 50 mg daily. 3. Contnue HCTZ. 4. Follow up in 6 weeks with labs. documented in this encounterPremier Health Atrium [facility] Center09-22-2022 History of Present illness Narrative* Rinku Ramsey MD - 03/31/2022 2:43 PM EDT Images from the original note were not included. NAME: Abe Andrei CLINIC NO.: [id number] DATE OF SERVICE: March 31, 2022 Some elements in this clinic note that are critical to medical decision making have been carefully reviewed and included from a prior clinic note dated: February 11, 2022 ([facility]) Additional Clinicians involved in Andrei Fish's care: Dr. Shay, Dr. Deluna CC: Chronic [...] as they are slightlyincreased. Got back from [place] and saw her sisters and had a nice trip with her of 54 yrs. Updated Visit, February 11, 2022: Andrei Fish returns for scheduled follow-up. She remains on [...] well. Updated Visit, December 17, 2021: Andrei Fish returns for scheduled follow-up. She remains on [...] therapy. Updated Visit, September 16, 2021: Andrei Fsih returns for follow-up. She remains on Tavalisse [...] concerns. Updated Visit, August 05, 2021: Mrs. Fish returns today and platelets continue to respond. We changed her anti-HTNives and her cough resolved, but today she notes she has a dry cough that returned this past Monday. Doubt this is due to medications. Will continue monitoring her. Updated Visit, July 16, 2021: Andrei Fish returns for follow-up. She remains on Tavalisse [...] why she was going to see a bag machine set up operator for her blood pressure. Patient also has [...] stable. Updated Visit, June 11, 2021: Andrei Fish returns for follow-up. She remains on tab [...] wasnormal. Updated Visit, January 27, 2021: Andrei Fish returns for scheduled follow-up. There has been [...] which included preparing to see the patient, [id number] patient care, completing clinical documentation, performing a medically appropriate examination, ordering medications, tests, or procedures, and independently interpreting results (not separately reported). Rinku Ramsey MD, CPE Hematology and Oncology Services Provided at: [place], [place] CC: Chadd Deluna documented in this encounterPremier Health [facility] Center08-29-2022 Miscellaneous Notes* Telephone Encounter - Jayden Connelly APRN.CNP - 03/07/2022 12:22 PM EDT The following approved medication requests have been transmitted electronically. Requested Prescriptions Signed Prescriptions Disp Refills pilocarpine (SALAGEN) 5 mg tablet 90 tablet 0 Sig: TAKE 1 TABLET BY MOUTH THREE TIMES A DAY Authorizing Provider: JAYDEN CONNELLY APRN.CNP documented in this encounterPremier Health [facility] Center08-29-2022 Miscellaneous Notes* Telephone Encounter - Jayden Connelly APRN.CNP - 03/07/2022 11:21 AM EDT The following approved medication requests have been transmitted electronically. Requested Prescriptions Signed Prescriptions Disp Refills losartan (COZAAR) 25 mg tablet 60 tablet 1 Sig: TAKE 2 TABLETS BY MOUTH EVERY DAY Authorizing Provider: JAYDEN CONNELLY APRN.CNP documented in this encounterPremier Health [facility] Center08-05-2022 History of Present illness Narrative* Jayden Connelly APRN.CNP - 02/11/2022 1:21 PM EDT Images from the original note were not included. NAME: Andrei Fish [facility] NO.: [id number] DATE OF SERVICE: February 11, 2022 Some elements in this clinic note that are critical to medical decision making have been carefully reviewed and included from a prior clinic note dated: December 17, 2021. Additional Clinicians involved in Andrei Fish's care: Dr. Shay, Dr. Deluna CC: Chronic [...] HPI: Updated Visit, February 11, 2022: Andrei Fish returns for scheduled follow-up. She remains on [...] well. Updated Visit, December 17, 2021: Andrei Fish returns for scheduled follow-up. She remains on [...] therapy. Updated Visit, September 16, 2021: Andrei Fish returns for follow-up. She remains on Tavalisse [...] concerns. Updated Visit, August 05, 2021: Mrs. Fish returns today and platelets continue to respond. We changed her anti-HTNives and her cough resolved, but today she notes she has a dry cough that returned this past Monday. Doubt this is due to medications. Will continue monitoring her. Updated Visit, July 16, 2021: Andrei Fish returns for follow-up. She remains on Tavalisse [...] why she was going to see a bag machine set up operator for her blood pressure. Patient also has [...] stable. Updated Visit, June 11, 2021: Andrei Fish returns for follow-up. She remains on tab [...] wasnormal. Updated Visit, January 27, 2021: Andrei Fish returns for scheduled follow-up. There has been [...] if it persists. She is requested Tesdengon Perles again for her chronic intermittent cough. [...] file. Jayden Connelly APRN.CNP Services Provided at: [place], [place] CC: Chadd Deluna documented in this encounterPremier Health [facility] Center07-05-2022 Miscellaneous Notes* Telephone Encounter - Jayden Connelly APRN.CNP - 01/11/2022 4:13 PM EDT The following approved medication requests have been transmitted electronically. Signed Prescriptions Disp Refills losartan (COZAAR) 25 mg tablet 60 tablet 1 Sig: TAKE 2 TABLETS BY MOUTH EVERY DAY JOVON: No Authorizing Provider: JAYDEN CONNELLY APRN.CNP documented in this encounterPremier Health [facility] Center06-10-2022 History of Present illness Narrative* Jayden Connelly APRN.CNP - 12/17/2021 3:13 PM EDT Images from the original note were not included. NAME: Andrei Fish CLINIC NO.: [id number] DATE OF SERVICE: December 17, 2021 Some elements in this clinic note that are critical to medical decision making have been carefully reviewed and included from a prior clinic note dated: October 28, 2021. Additional Clinicians involved in Andrei Fish's care: Dr. Shay, Dr. Deluna CC: Chronic [...] 1. 2017 Rituxan X 4 HPI: Andrei Fish returns for scheduled follow-up. She remains on [...] therapy. Updated Visit, September 16, 2021: Andrei Fish returns for follow-up. She remains on Tavalisse [...] concerns. Updated Visit, August 05, 2021: Mrs. Fish returns today and platelets continue to respond. We changed her anti-HTNives and her cough resolved, but today she notes she has a dry cough that returned this past Monday. Doubt this is due to medications. Will continue monitoring her. Updated Visit, July 16, 2021: Andrei Fish returns for follow-up. She remains on Tavalisse [...] why she was going to see a bag machine set up operator for her blood pressure. Patient also has [...] stable. Updated Visit, June 11, 2021: Andrei Fish returns for follow-up. She remains on tab [...] wasnormal. Updated Visit, January 27, 2021: Andrei Fish returns for scheduled follow-up. There has been [...] No family history on file. Jayden Connelly APRN.AREA FIELD MANAGER Services Provided at: [place], [place] CC: Chadd Deluna Almost had a fall [facility] documented [facility] Evaluation note* Encounter Date Diagnosis [...] advised her to follow with sleep specialist. [facility] Other 04-21-2022 History of Present illness Narrative* Rinku Ramsey MD - 10/28/2021 11:41 AM EDT Images from the original note were not included. NAME: Andrei Fish CLINIC NO.: [id number] DATE OF SERVICE: October 28, 2021 Some elements in this clinic note that are critical to medical decision making have been carefully reviewed and included from a prior clinic note dated: September 16, 2021 Additional Clinicians involved in Andrei Fish's care: Dr. Shay, Dr. Deluna CC: Chronic [...] 6 weeks with labs Treatment to Date: . 05/14/2021 - Current: [...] therapy. Updated Visit, September 16, 2021: Andrei Fish returns for follow-up. She remains on Tavalisse [...] concerns. Updated Visit, August 05, 2021: Mrs. Fish returns today and platelets continue to respond. We changed her anti-HTNives and her cough resolved, but today she notes she has a dry cough that returned this past Monday. Doubt this is due to medications. Will continue monitoring her. Updated Visit, July 16, 2021: Andrei Fish returns for follow-up. She remains on Tavalisse [...] why she was going to see a bag machine set up operator for her blood pressure. Patient also has [...] stable. Updated Visit, June 11, 2021: Andrei Fish returns for follow-up. She remains on tab [...] wasnormal. Updated Visit, January 27, 2021: Andrei Fish returns for scheduled follow-up. There has been [...] which included preparing to see the patient, qshe-dh-lvil patient care, completing clinical documentation, performing a medically appropriate examination, ordering medications, tests, or procedures and care coordination (not separately reporte d). Rinku Ramsey MD, CPE Services Provided at: [place], [place] & [place], [place] CC: Chadd Deluna documented in this encounter[facility]04-[facility] History of Present illness Narrative* [...] Care Gap or Scheduling/Wellness visits Payer: Payor: [facility] MEDICARE / Plan: [facility] MEDICARE HMO / Product Type: HMO / [...] 25, 2021 8:13 AM documented in this encounterPrem[facility]04-12-2022 Miscellaneous Notes* Telephone Encounter - [...] Provider: JAYDEN CONNELLY APRN.CNP documented in this encounterPrem[facility]11-03-2021 Miscellaneous Notes* Telephone Encounter - Krista Harden RPh - 05/12/2021 3:42 PM EDT Andrei has been approved for free Tavalisse 05/10/21-07/09/21. I left Andrei a message 05/12/21 @ 6195 informing her of this and that a Rn from [employer] will be reaching out to her to set up delivery of her Tavalisse if they have not already and to call with any further questions. Gerard Harden RPh documented in this encounterPrem[facility]* Diagnosis Essential hypertension Unspecified essential hypertension Chronic ITP (idiopathic thrombocytopenia) (HCC) Immune thrombocytopenic purpura Obstructive sleep apnea syndrome Obstructive sleep apnea (adult) (pediatric) Hypertension, unspecified type documented in this encounter [facility]* Diagnosis Chronic ITP (idiopathic thrombocytopenia) (HCC)- Primary Immune thrombocytopenic purpura Essential hypertension Unspecified essential hypertension Obstructive sleep apnea syndrome Obstructive sleep apnea (adult) (pediatric) Lung nodules Other nonspecific abnormal finding of lung field Systemic lupus erythematosus, unspecified SLE type, unspecified organ involvement status (HCC) documented in this encounter [facility]* Diagnosis Chronic ITP (idiopathic thrombocytopenia) (HCC)- Primary Immune thrombocytopenic purpura Hypertension, unspecified type Essential hypertension Unspecified essential hypertension Obstructive sleep apnea syndrome Obstructive sleep apnea (adult) (pediatric) Lung nodules Other nonspecific abnormal finding of lung field Systemic lupus erythematosus, unspecified SLE type, unspecified organ involvement status (HCC) documented in this encounter [facility]* Diagnosis Hypertension, unspecified type [facility] Diagnosis Essential hypertension Unspecified essential hypertension Chronic ITP (idiopathic thrombocytopenia) (HCC) Immune thrombocytopenic purpura Obstructive sleep apnea syndrome Obstructive sleep apnea (adult) (pediatric) Hypertension, unspecified type [facility]* Diagnosis Hypertension, unspecified type [facility]* Diagnosis Chronic ITP (idiopathic thrombocytopenia) (HCC)- Primary Immune thrombocytopenic purpura Essential hypertension Unspecified essential hypertension Obstructive sleep apnea syndrome Obstructive sleep apnea (adult) (pediatric) Systemic lupus erythematosus, unspecified SLE type, unspecified organ involvement status (HCC) documented in this encounter [facility]* Diagnosis Hypertension, unspecified type documented in this encounter [facility] [place]* Diagnosis Chronic ITP (idiopathic thrombocytopenia) (HCC)- Primary Immune thrombocytopenic purpura Obstructive sleep apnea syndrome Obstructive sleep apnea (adult) (pediatric) documented in this encounter [facility]* Diagnosis Chronic ITP (idiopathic thrombocytopenia) (HCC)- Primary Immune thrombocytopenic purpura Obstructive sleep apnea syndrome Obstructive sleep apnea (adult) (pediatric) Essential hypertension Unspecified essential hypertension documented in this encounter [facility] note* Diagnosis Hypertension, unspecified type documented in this encounter [facility] note* Diagnosis Chronic ITP (idiopathic thrombocytopenia) (HCC)- Primary Immune thrombocytopenic purpura Hypertension, unspecified type Obstructive sleep apnea syndrome Obstructive sleep apnea (adult) (pediatric) Systemic lupus erythematosus, unspecified SLE type, unspecified organ involvement status (HCC) documented in this encounter [facility] note* Diagnosis Chronic ITP (idiopathic thrombocytopenia) (HCC)- Primary Immune thrombocytopenic purpura Obstructive sleep apnea syndrome Obstructive sleep apnea (adult) (pediatric) Hypertension, unspecified type Systemic lupus erythematosus, unspecified SLE type, unspecified organ involvement status (HCC) Malaise and fatigue Other malaise and fatigue Skin lesion of right lower extremity [facility] Diagnosis Hypertension, unspecified type documented in this encounter [facility] noteNo assessment information [facility] Work Phone: Evaluation note* Diagnosis Chronic ITP (idiopathic thrombocytopenia) (HCC)- Primary Immune thrombocytopenic purpura Obstructive sleep apnea syndrome Obstructive sleep apnea (adult) (pediatric) documented in this encounter [facility] note* Diagnosis Hypertension, unspecified type documented in this encounter [facility] note* Diagnosis Chronic ITP (idiopathic thrombocytopenia) (HCC)- Primary Immune thrombocytopenic purpura documented in this encounter [facility] note* Diagnosis Chronic ITP (idiopathic thrombocytopenia) (HCC)- Primary Immune thrombocytopenic purpura Hypertension, unspecified type Obstructive sleep apnea syndrome Obstructive sleep apnea (adult) (pediatric) documented in this encounter [facility] note* Diagnosis Chronic ITP (idiopathic thrombocytopenia) (HCC)- Primary Immune thrombocytopenic purpura Essential hypertension Unspecified essential hypertension Obstructive sleep apnea syndrome Obstructive sleep apnea (adult) (pediatric) Systemic lupus erythematosus, unspecified SLE type, unspecified organ involvement status (HCC) documented in this encounter [facility] noteNo InformationNocrittenton [facility] [email or web address] Other Evaluation note* Diagnosis Chronic ITP (idiopathic thrombocytopenia) (HCC)- Primary Immune thrombocytopenic purpura documented in this encounter [facility]* Diagnosis Chronic ITP (idiopathic thrombocytopenia) (HCC)- Primary Immune thrombocytopenic purpura Essential hypertension Unspecified essential hypertension [facility]* Diagnosis Chronic ITP (idiopathic thrombocytopenia) (HCC)- Primary Immune thrombocytopenic purpura Essential hypertension Unspecified essential hypertension Hypertension, unspecified type [facility]* Diagnosis 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, left [facility] Diagnosis 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 [facility]* Diagnosis Chronic ITP (idiopathic thrombocytopenia) (HCC)- Primary Immune thrombocytopenic purpura Essential hypertension Unspecified essential hypertension Obstructive sleep apnea syndrome Obstructive sleep apnea (adult) (pediatric) Systemic lupus erythematosus, unspecified SLE type, unspecified organ involvement status ([facility]) Malaise and fatigue Other malaise and fatigue documented in this encounter [facility]* Diagnosis Hypertension, unspecified type documented in this encounter [facility]* Diagnosis Cholesteatoma of left ear documented in this encounter [facility] Work Phone: Evaluation note* Diagnosis Cholesteatoma of left ear Perforation of left tympanic membrane Cholesteatoma of left ear documented in this encounter [facility] Work Phone: Evaluation note* Diagnosis Chronic ITP (idiopathic thrombocytopenia) (HCC)- Primary Immune thrombocytopenic purpura Stage 3b chronic kidney disease (HCC) Secondary hypertension Other secondary hypertension, unspecified Obstructive sleep apnea syndrome Obstructive sleep apnea (adult) (pediatric) documented in this encounter [facility]* Diagnosis Preoperative examination- Primary Preoperative examination, unspecified Preoperative clearance- Primary Preoperative examination, unspecified documented in this encounter [facility]* Diagnosis Cholesteatoma of left ear- Primary Preoperative clearance Unspecified pre-operative examination Cholesteatoma of left ear Post-operative pain Other acute postoperative pain HTN (hypertension) Unspecified essential hypertension documented in this encounter [facility] Work Phone: Evaluation note* Diagnosis Essential hypertension Unspecified essential hypertension Chronic ITP (idiopathic thrombocytopenia) (HCC) Immune thrombocytopenic purpura Obstructive sleep apnea syndrome Obstructive sleep apnea (adult) (pediatric) documented in this encounter [facility] note* Diagnosis Chronic ITP (idiopathic thrombocytopenia) (HCC)- Primary Immune thrombocytopenic purpura Essential hypertension Unspecified essential hypertension Obstructive sleep apnea syndrome Obstructive sleep apnea (adult) (pediatric) Stage 3b chronic kidney disease (HCC) documented in this encounter [facility] note* Diagnosis 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 Other vitamin B12 deficiency anemia Abnormal weight loss Loss of weight Lupus (HCC) Systemic lupus erythematosus Thrombocytopenia (HCC) Thrombocytopenia, unspecified Chronic ITP (idiopathic thrombocytopenia) (HCC) Immune thrombocytopenic purpura documented in this encounter [facility] note* Diagnosis Chronic ITP (idiopathic thrombocytopenia) (HCC)- 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 Other vitamin B12 deficiency anemia Obstructive sleep apnea syndrome Obstructive sleep apnea (adult) (pediatric) documented in this encounter [facility] general Narrative - Reported* Type Description Date Medical History PULMONARY NODULES Medical History LUPUS Medical History THROMBOCYTOPENIA Medical History HYPERTESNION Surgical History APPENDECTOMY Surgical History BACK SURGERY Surgical History CYST REMOVAL FROM LEFT BREAST Surgical History GALL BLADDER REMOVED Surgical History PARTIAL HYSTERECTOMY Surgical History OVARY REMOVAL Surgical History LEFT LEG FRACTURE WITH PIN AND PLATE PLACEMENT Hospitalization History [facility] Other History general Narrative - Reported* Type [...] AND PLATE PLACEMENT Hospitalization History [facility] Other Summary Purpose Family History No Family [...] Referred By Contac t Referred To Contact Radiology Diagnoses Cholesteatoma of left ear Procedures CT internal auditory canals [place] [id number] [place] [address] Referral ID Status Reason Start Date Expiration Date Visits Requested Visits Authorized [id number] Pending Review Perform Procedure 11/14/2023 11/13/2024 1 1 Specialty Diagnoses / Procedures Referred By Contsosa [email or web address] Referred To Contact Dermatology Diagnoses Skin lesion of right lower extremity Procedures CONSULT TO DERMATOLOGY Jayden Connelly, MIRIAM.[address] [place] [address] Referral ID Status Reason Start Date Expiration Date Visits Requested Visits Authorized [id number] Ref Not Required PCP Requested Referral 08/04/2022 08/04/2023 1 1 Chief Complaint and Reason for Visit Chief Complaint HTN Lupus Chronic IT P I10 M32.9 D693 G47.33 n28.1 Additional Source Comments INFORMATION SOURCE (unrecogn ized section and content) DATE CREATED AUTHOR 01/02/2018 [facility] DATE CREATED AUTHOR AUTHOR'S ORGANIZ ATION 08/18/2023 [facility] DATE CREATED AUTHOR AUTHOR'S ORGANIZ ATION 12/23/2023 [facility] DATE CREATED AUTHOR AUTHOR'S ORGANIZ ATION 12/30/2023 [facility] DATE CREATED AUTHOR AUTHOR'S ORGANIZ ATION 02/08/2024 [facility] DATE CREATED AUTHOR AUTHOR'S ORGANIZ ATION 03/03/2024 [facility] DATE CREATED AUTHOR AUTHOR'S ORGANIZ ATION 03/05/2024 [facility] DATE CREATED AUTHOR AUTHOR'S ORGANIZ ATION 03/07/2024 [facility] Source Comments (unrecognize d section and content) In the event this informatio n is protected by the Federal Confidentiality of Alcohol and Drug Abuse Patient Records regulations: The Federal rules restrict any use of the information to criminally investigate or prosecute any alcohol or drug abuse patient.[facility] CenterIn the event this information is protected by the Federal Confidentiality of Alcohol and Drug Abuse Patient Records regulations: The Federal rules restrict any use of the information to criminally investigate or prosecute any alcohol or drug abuse patient.[facility] CenterIn the event this information is protected by the Federal Confidentiality of Alcohol and Drug Abuse Patient Records regulations: The Federal rules restrict any use of the information to criminally investigate or prosecute any alcohol or drug abuse patient.[facility] CenterIn the event this information is protected by the Federal Confidentiality of Alcohol and Drug Abuse Patient Records regulations: The Federal rules restrict any use of the information to criminally investigate or prosecute any alcohol or drug abuse patient.[facility] CenterIn the event this information is protected by the Federal Confidentiality of Alcohol and Drug Abuse Patient Records regulations: The Federal rules restrict any use of the information to criminally investigate or prosecute any alcohol or drug abuse patient.[facility] CenterIn the event this information is protected by the Federal Confidentiality of Alcohol and Drug Abuse Patient Records regulations: The Federal rules restrict any use of the information to criminally investigate or prosecute any alcohol or drug abuse patient.[facility] CenterIn the event this information is protected by the Federal Confidentiality of Alcohol and Drug Abuse Patient Records regulations: The Federal rules restrict any use of the information to criminally investigate or prosecute any alcohol or drug abuse patient.[facility] CenterIn the event this information is protected by the Federal Confidentiality of Alcohol and Drug Abuse Patient Records regulations: The Federal rules restrict any use of the information to criminally investigate or prosecute any alcohol or drug abuse patient.[facility] CenterIn the event this information is protected by the Federal Confidentiality of Alcohol and Drug Abuse Patient Records regulations: The Federal rules restrict any use of the information to criminally investigate or prosecute any alcohol or drug abuse patient.[facility] CenterIn the event this information is protected by the Federal Confidentiality of Alcohol and Drug Abuse Patient Records regulations: The Federal rules restrict any use of the information to criminally investigate or prosecute any alcohol or drug abuse patient.[facility] CenterIn the event this information is protected by the Federal Confidentiality of Alcohol and Drug Abuse Patient Records regulations: The Federal rules restrict any use of the information to criminally investigate or prosecute any alcohol or drug abuse patient.[facility] CenterIn the event this information is protected by the Federal Confidentiality of Alcohol and Drug Abuse Patient Records regulations: The Federal rules restrict any use of the information to criminally investigate or prosecute any alcohol or drug abuse patient.[facility] CenterIn the event this information is protected by the Federal Confidentiality of Alcohol and Drug Abuse Patient Records regulations: The Federal rules restrict any use of the information to criminally investigate or prosecute any alcohol or drug abuse patient.[facility] CenterIn the event this information is protected by the Federal Confidentiality of Alcohol and Drug Abuse Patient Records regulations: The Federal rules restrict any use of the information to criminally investigate or prosecute any alcohol or drug abuse patient.[facility] CenterIn the event this information is protected by the Federal Confidentiality of Alcohol and Drug Abuse Patient Records regulations: The Federal rules restrict any use of the information to criminally investigate or prosecute any alcohol or drug abuse patient.[facility] CenterIn the event this information is protected by the Federal Confidentiality of Alcohol and Drug Abuse Patient Records regulations: The Federal rules restrict any use of the information to criminally investigate or prosecute any alcohol or drug abuse patient.[facility] CenterIn the event this information is protected by the Federal Confidentiality of Alcohol and Drug Abuse Patient Records regulations: The Federal rules restrict any use of the information to criminally investigate or prosecute any alcohol or drug abuse patient.[facility] CenterIn the event this information is protected by the Federal Confidentiality of Alcohol and Drug Abuse Patient Records regulations: The Federal rules restrict any use of the information to criminally investigate or prosecute any alcohol or drug abuse patient.[facility] CenterIn the event this information is protected by the Federal Confidentiality of Alcohol and Drug Abuse Patient Records regulations: The Federal rules restrict any use of the information to criminally investigate or prosecute any alcohol or drug abuse patient.[facility] CenterIn the event this information is [...] or prosecute any alcohol or drug abuse patient.[facility] CenterIn the event this information is protected by the Federal Confidentiality of Alcohol and Drug Abuse Patient Records regulations: The Federal rules restrict any use of the information to criminally investigate or prosecute any alcohol or drug abuse patient.[facility] CenterIn the event this information is protected by the Federal Confidentiality of Alcohol and Drug Abuse Patient Records regulations: The Federal rules restrict any use of the information to criminally investigate or prosecute any alcohol or drug abuse patient.[facility] CenterIn the event this information is protected by the Federal Confidentiality of Alcohol and Drug Abuse Patient Records regulations: The Federal rules restrict any use of the information to criminally investigate or prosecute any alcohol or drug abuse patient.[facility] CenterIn the event this information is protected by the Federal Confidentiality of Alcohol and Drug Abuse Patient Records regulations: The Federal rules restrict any use of the information to criminally investigate or prosecute any alcohol or drug abuse patient.[facility] CenterIn the event this information is protected by the Federal Confidentiality of Alcohol and Drug Abuse Patient Records regulations: The Federal rules restrict any use of the information to criminally investigate or prosecute any alcohol or drug abuse patient.[facility] CenterIn the event this information is protected by the Federal Confidentiality of Alcohol and Drug Abuse Patient Records regulations: The Federal rules restrict any use of the information to criminally investigate or prosecute any alcohol or drug abuse patient.[facility] CenterIn the event this information is protected by the Federal Confidentiality of Alcohol and Drug Abuse Patient Records regulations: The Federal rules restrict any use of the information to criminally investigate or prosecute any alcohol or drug abuse patient.[facility] CenterIn the event this information is protected by the Federal Confidentiality of Alcohol and Drug Abuse Patient Records regulations: The Federal rules restrict any use of the information to criminally investigate or prosecute any alcohol or drug abuse patient.[facility] CenterIn the event this information is protected by the Federal Confidentiality of Alcohol and Drug Abuse Patient Records regulations: The Federal rules restrict any use of the information to criminally investigate or prosecute any alcohol or drug abuse patient.[facility] CenterIn the event this information is protected by the Federal Confidentiality of Alcohol and Drug Abuse Patient Records regulations: The Federal rules restrict any use of the information to criminally investigate or prosecute any alcohol or drug abuse patient.[facility] CenterIn the event this information is protected by the Federal Confidentiality of Alcohol and Drug Abuse Patient Records regulations: The Federal rules restrict any use of the information to criminally investigate or prosecute any alcohol or drug abuse patient.[facility] CenterIn the event this information is protected by the Federal Confidentiality of Alcohol and Drug Abuse Patient Records regulations: The Federal rules restrict any use of the information to criminally investigate or prosecute any alcohol or drug abuse patient.[facility] CenterIn the event this information is protected by the Federal Confidentiality of Alcohol and Drug Abuse Patient Records regulations: The Federal rules restrict any use of the information to criminally investigate or prosecute any alcohol or drug abuse patient.[facility] CenterIn the event this information is protected by the Federal Confidentiality of Alcohol and Drug Abuse Patient Records regulations: The Federal rules restrict any use of the information to criminally investigate or prosecute any alcohol or drug abuse patient.[facility] CenterIn the event this information is protected by the Federal Confidentiality of Alcohol and Drug Abuse Patient Records regulations: The Federal rules restrict any use of the information to criminally investigate or prosecute any alcohol or drug abuse patient.[facility] CenterIn the event this information is protected by the Federal Confidentiality of Alcohol and Drug Abuse Patient Records regulations: The Federal rules restrict any use of the information to criminally investigate or prosecute any alcohol or drug abuse patient.[facility] CenterIn the event this information is protected by the Federal Confidentiality of Alcohol and Drug Abuse Patient Records regulations: The Federal rules restrict any use of the information to criminally investigate or prosecute any alcohol or drug abuse patient.[facility] CenterIn the event this information is protected by the Federal Confidentiality of Alcohol and Drug Abuse Patient Records regulations: The Federal rules restrict any use of the information to criminally investigate or prosecute any alcohol or drug abuse patient.[facility] CenterIn the event this information is protected by the Federal Confidentiality of Alcohol and Drug Abuse Patient Records regulations: The Federal rules restrict any use of the information to criminally investigate or prosecute any alcohol or drug abuse patient.[facility] CenterIn the event this information is protected by the Federal Confidentiality of Alcohol and Drug Abuse Patient Records regulations: The Federal rules restrict any use of the information to criminally investigate or prosecute any alcohol or drug abuse patient.[facility] CenterIn the event this information is protected by the Federal Confidentiality of Alcohol and Drug Abuse Patient Records regulations: The Federal rules restrict any use of the information to criminally investigate or prosecute any alcohol or drug abuse patient.[facility] CenterIn the event this information is protected by the Federal Confidentiality of Alcohol and Drug Abuse Patient Records regulations: The Federal rules restrict any use of the information to criminally investigate or prosecute any alcohol or drug abuse patient.[facility] CenterIn the event this information is protected by the Federal Confidentiality of Alcohol and Drug Abuse Patient Records regulations: The Federal rules restrict any use of the information to criminally investigate or prosecute any alcohol or drug abuse patient.[facility] CenterIn the event this information is protected by the Federal Confidentiality of Alcohol and Drug Abuse Patient Records regulations: The Federal rules restrict any use of the information to criminally investigate or prosecute any alcohol or drug abuse patient.[facility] CenterIn the event this information is protected by the Federal Confidentiality of Alcohol and Drug Abuse Patient Records regulations: The Federal rules restrict any use of the information to criminally investigate or prosecute any alcohol or drug abuse patient.[facility] CenterIn the event this information is protected by the Federal Confidentiality of Alcohol and Drug Abuse Patient Records regulations: The Federal rules restrict any use of the information to criminally investigate or prosecute any alcohol or drug abuse patient.[facility] CenterIn the event this information is protected by the Federal Confidentiality of Alcohol and Drug Abuse Patient Records regulations: The Federal rules restrict any use of the information to criminally investigate or prosecute any alcohol or drug abuse patient.[facility] Reason for Visit (unrecogniz ed [...] thrombocytopenia ) (HCC) 1 month follow up Specialty Diagnoses / Procedures Referred By Sobia guallpa Referred To Contact Radiology Diagnoses Cholesteatoma of left ear Procedures CT internal auditory canals posterior [place] [address] [place] [address] Referral ID Status Reason Start Date Expiration Date Visits Requested Visits Authorized [id number] Pending Review Perform Procedure 11/14/2023 11/13/2024 1 1 Reason Comments Hearing Loss Reason Comments Chronic ITP 6 week follow up Reason Comments Call Request Specialty Diagnoses / Procedures Referred By Sobia guallpa Referred To Contact Diagnoses 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 [H71.92] Procedures NE TMPP MASTOIDECT NTC/RCNSTED CANAL WALL OCR NE GRAFT EAR CRTLG AUTOGENOUS NOSE/EAR NE TMPP MASTOIDECTOMY W/OSSICULAR CHAIN RECNSTJ Left Side Tympanomastoidectomy Canal Wall Up; Ossiculoplasty; [place] [address] [place] [address] [facility] [place] [address] [place] [address] Referral ID Status Reason Start Date Expiration Date Visits Re quested Visits Authorized [id number] 1 1 Reason Onset Date Comments Refill Request 01/25/2024 Care Teams (unrecognized sec tion and content) Air Pollution Compliance Inspector Relationship Specialty Start Date End Date Paloma Saldaña [address] [facility] [place] [address] PCP - General Family Practice 05/26/21 05/31/21 Team Status: Inactive Member Role Status Dates Gilson Sarah MD Attending Provider Active NON STAFF Primary Care Provider Active Team Status: Active Member Role Status Dates NON STAFF Primary Care Provider Active Air Pollution Compliance Inspector Relationship Specialty Start Date End Date Shaikh Biswas [facility] [place] [address] PCP - General Primary Care 09/15/22 Air Pollution Compliance Inspector Relationship Specialty Start Date End Date Shaikh Biswas MD [address] [place] [address] [place] [address] PCP - General Primary Care 09/15/22 Air Pollution Compliance Inspector Relationship Specialty Start Date End Date Shaikh Biswas MD [facility] [place] [address] PCP - General Primary Care 09/15/22 Air Pollution Compliance Inspector Relationship Specialty Start Date End Date Shaikh Biswas MD [facility] [place] [address] PCP - General Primary Care 09/15/22 Air Pollution Compliance Inspector Relationship Specialty Start Date End Date Stephanie Dumont [address] [place] [address] PCP - General 04/20/23 Air Pollution Compliance Inspector Relationship Specialty Start Date End Date KwanjonnataylaStephanie [address] [place] [address] PCP - General 04/20/23 Air Pollution Compliance Inspector Relationship Specialty Start Date End Date KwanjonnaChante bournea [address] [place] [address] PCP - General 04/20/23 Air Pollution Compliance Inspector Relationship Specialty Start Date End Date Wilfred Polanco MD [address] [place] [phone] PCP - General Family Medicine 07/17/23 Stephanie Dumont NP [address] [place] [address] Nurse Practitioner Family Medicine 04/09/23 Air Pollution Compliance Inspector Relationship Specialty Start Date End Date Wilfred Polanco MD [address] [place] [address] PCP - General Family Medicine 07/17/23 Stephanie Dumont NP [address] [place] [address] Nurse Practitioner Family Medicine 04/09/23 Air Pollution Compliance Inspector Relationship Specialty Start Date End Date Wilfred Polanco MD [address] [place] [address] PCP - General Family Medicine 08/17/23 Stephanie Dumont NP [address] [place] [address] Nurse Practitioner Family Medicine 04/09/23 Air Pollution Compliance Inspector Relationship Specialty Start Date End Date Wilfred Polanco MD [address] [place] [address] PCP - General Family Medicine 08/17/23 Stephanie Dumont NP [address] [place] [address] Nurse Practitioner Family Medicine 04/09/23 Air Pollution Compliance Inspector Relationship Specialty Start Date End Date Wilfred Polanco MD [address] [place] [address] PCP - General Family Medicine 08/17/23 Stephanie Dumont NP [address] [place] [phone] Nurse Practitioner Family Medicine 04/09/23 Air Pollution Compliance Inspector Relationship Specialty Start Date End Date Stephanie Dumont [address] [place] [address] PCP - General 04/20/23 Air Pollution Compliance Inspector Relationship Specialty Start Date End Date Stephanie Dumont [address] [place] [address] PCP - General 04/20/23 Air Pollution Compliance Inspector Relationship Specialty Start Date End Date Stephanie Dumont [address] [place] [address] PCP - General 04/20/23 Air Pollution Compliance Inspector Relationship Specialty Start Date End Date Stephanie Dumont [address] [place], [place] [address] [address] PCP - General 04/20/23 Air Pollution Compliance Inspector Relationship Specialty Start Date End Date Tim Stephanie PCP - General 04/20/23 Air Pollution Compliance Inspector Relationship Specialty Start Date End Date TimChantea PCP - General 04/20/23 Air Pollution Compliance Inspector Relationship Specialty Start Date End Date KwanStephanie bourne PCP - General 04/20/23 Air Pollution Compliance Inspector Relationship Specialty Start Date End Date [facility] - General 04/20/23 Goals (unrecognized section and content) Goals may be documented in a n alternate section Scheduled Active and Recently Administ ered Medications (unrecognized section and content) Medication Order 12/16/2023 12/17/2023 12/18/2023 acetaminophen (Tylenol) tablet 975 mg (COMPLETED) 975 mg, oral, Once, On Mon12/18/23 at 1430, For 1 dose, Recovery & On Unit, If ordered PRN for pain, nurse is permitted to administer this medication for higher pain scores based on patient preference? Yes 1405 (Given - Provid er: Pamela Paul RN) lidocaine PF (Xylocaine) 10 mg/mL (1 %) injection 1 mg 1 mg (0.1 mL), subcutaneous, Once, On Mon12/18/23 at 1300, For 1 dose, Recovery (only), To be used for IV insertion ONLY 1300 (Due) Continuous Medication Order 12/16/2023 12/17/2023 12/18/2023 lactated Ringer's infusion 100 mL/hr, intravenous, Continuous, Starting on Mon12/18/23 at 1300, Recovery (only) 1300 (Due) PRN Medication Order 12/16/2023 12/17/2023 12/18/2023 bacitracin ointment (CANCELED) As needed, Starting on Mon12/18/23 at 0904, Intraprocedure 0904 (Given - Provid er: Susanna Graf MD) balanced salts (BSS) intraocular solution (CANCELED) As needed, Starting on Mon12/18/23 at 0905, Intraprocedure 09 (Given - Provid er: Susanna Graf MD - Comment: IRRIGATION) ciprofloxacin-dexamethasone (CiproDEX) otic suspension (CANCELED) As needed, Starting on Mon12/18/23 at 0906, Intraprocedure 09 (Given - Provid er: Susanna Graf MD) EPINEPHrine HCl (PF) (Adrenalin) injection (CANCELED) As needed, Starting on Mon12/18/23 at 0909, Intraprocedure 0909 (Given - Provid er: Susanna Graf MD - Comment: Mixed w/ 19ml injectable NaCl) gelatin absorbable (Gelfoam) 100 sponge (CANCELED) As needed, Starting on Mon12/18/23 at 0906, Intraprocedure 09 (Given - Provid er: Susanna Graf MD - Comment: Soaked in CiproDEX) HYDROmorphone (Dilaudid) injection 0.2 mg 0.2 mg, intravenous, Every 5 min PRN, pain moderate (4-6), first line, Starting on Mon12/18/23 at 1242, Recovery (only), Max total of 4 mg regardless of dose. HYDROmorphone (Dilaudid) injection 0.5 mg 0.5 mg, intravenous, Every 5 min PRN, pain severe (7-10), first line, Starting on Mon12/18/23 at 1242, Recovery (only), Max total of 4 mg regardless of dose. lidocaine-epinephrine (Xylocaine W/EPI) 1 %-1:100,000 injection (CANCELED) As needed, Starting on Mon12/18/23 at 0906, Intraprocedure 09 (Given - Provid er: Susanna Graf MD - Comment: Preop) ondansetron (Zofran) injection 4 mg 4 mg, intravenous, Once as needed, nausea/vomiting, first line, Starting on Mon12/18/23 at 1242, For 1 dose, Recovery (only), When administering via IV Push, administer over 3-5 minutes. promethazine (Phenergan) 6.25 mg in sodium chloride 0.9% 50 mL IV 6.25 mg, intravenous, Administer over 15 Minutes, Once as needed, Nausea/vomiting, second line, Starting on Mon12/18/23 at 1242, For 1 dose, Recovery (only) sodium chloride 0.9 % irrigation solution (CANCELED) As needed, Starting on 12/18/23 at 0908, Intraprocedure 0908 (Given - Provid er: Susanna Graf MD - Comment: Also 1L bottle warmed on field) sodium chloride bacteriostatic 0.9 % injection (CANCELED) As needed, Starting on 12/18/23 at 0907, Intraprocedure 0907 (Given - Provid er: Susanna Graf MD - Comment: Mixed with 1ml Epi) FOR RECORDS PERTAINING TO PATIENTS WHO ARE [...] BE BASED ON THE PRIMARY CLINICAL RECORDS. [employer] provides no warranty or guarantee of the accuracy or completeness of information in this document.
== END 2024-04-03 09:56 | disposition home or self-care (01) ==
LOC: US 09:55
PROVIDERS: PCP Nurse Practitioner; Visit Provider Nurse Practitioner
DX: E04.1 Nontoxic single thyroid nodule (principal)
CPT/HCPCS: 76536

== ENCOUNTER 2024-04-16 13:52 | Day surgery (SDC) | payer MEDICARE, SELFPAY ==
--- NOTE | 2024-04-16 13:59 | US_ITS ---
[address] [address] Patient Name: JASPREET LEO MRN: [id number] date: 1950 Sex: F Assigned Patient Location: US Current Patient Location: Accession/Order Number: [id number] Exam Date: 04/16/2024 14:00 Report Date: 04/16/2024 15:55 At the request of: ALEXI TOPETE Procedure: US biopsy thyroid EXAMINATION: US biopsy thyroid HISTORY: Chronic Idiopathic Thrombocytopenia, Thyroid Nodule COMPARISON: Ultrasound thyroid 04/03/2024 TECHNIQUE: After obtaining informed consent, ultrasound-guided fine needle aspiration was performed in the usual sterile manner. FINDINGS: IMAGING: Ultrasound. BIOPSY NEEDLE: 25-gauge; 3 separate passes LOCATION: Mid right thyroid lobe 2.0 x 1.6 x 1.3 cm heterogeneous TR 4 nodule. SPECIMEN TYPE: Cellular tissue. LOCAL ANESTHETIC: Buffered Xylocaine. COMPLICATIONS: None. LABORATORY: Prepared slide smears and washings for cell block evaluation. OTHER: Negative. PATHOLOGY: Pending. An addendum will be added when results are available. US/US biopsy thyroid IMPRESSION: 1. Uneventful ultrasound guided fine needle aspiration (FNA). 2. Pathology results are pending. Electronically authenticated by: THA SALGUERO Date: 04/16/2024 15:55
[2024-04-16 14:00] VITALS: BP 115/89; PULSE 72; O2SAT 99
--- OUTSIDE RECORDS SUMMARY | 2024-04-16 14:12 | XMS_ITS | CCD ---
Author Organization [facility] Care Team Providers Care Disability Program Navigator Name Role Phone COTY WRIGHT Unavailable Unavailable COTY WRIGHT Unavailable Unavailable VANCE SCHERER Unavailable Unavailable VANCE SCHERER Unavailable Unavailable Unavailable Primary Care Provider UnavailPaloma Pena Primary Care Provider Cal Sarahul Unavailable Unavailable Primary Care Provider Unavailaudrey e Unavailable Primary Care Provider UnavailMD Gilson Galvez Attending Provider NON STAFF Primary Care Provider UnavailShaikh Reeves MD Primary Care Provider Stephanie Dumont Primary Care Provider [phone] Tim FAIRGROUND OPERATOR, Stephanie Unavailable Wilfred Polanco MD Primary Care Provider [phone] Gilson Sarah Attending Unavailable TyrelGilson Admitting Unavailable NON STAFF Primary Care Unavailable TyrelGilson Attending Unavailable Tyrel Gilson Admitting Unavailable Wilfred Polanco MD Primary Care Provider Unavailable Primary Care Provider UnavailStephanie Callahan Primary Care Provider SUSANNA GRAF Referring Unavailable SUSANNA GRAF Admitting Unavailable SUSANNA GRAF Attending Unavailable MAR MAYO Referring Unavaila ble Stephanie Dumont Primary Care Provider UnavailSUSANNA Aguila Attending Unavailable MAR MAYO Referring Unavaila ble EMANI BAL Attending Unavailabl e LESIA SUSANNA E Attending Unavailable Stephanie Grigsby Primary Care Provider Aichholz FAIRGROUND OPERATOR, Stephanie Unavailable Aichholz FAIRGROUND OPERATOR, Stephanie Unavailable ABHYANKAR, RINKU Referring Unavailable ABHYANKAR, RINKU Attending Unavailable GODWIN, JAYDEN Referring Unavailable ANA PHOENIX Attending Unavailable ABHYANKAR, RINKU Referring Unavailable GODWIN, JAYDEN Referring Unavailable ABHYANKAR, RINKU Attending Unavailable ABHYANKAR, RINKU Referring Unavailable ABHYANKAR, RINKU Referring Unavailable ABHYANKAR, RINKU Attending Unavailable ABHYANKAR, RINKU Referring Unavailable ABHYANKAR, RINKU Attending Unavailable ABHYANKAR, RINKU Referring Unavailable ANA PHOENIX Attending Unavailable ABHYANKAR, RINKU Referring Unavailable ABHYANKAR, RIKNU Attending Unavailable ABHYANKAR, RINKU Referring Unavailable ABHYANKAR, RINKU Attending Unavailable ABHYANKAR, RINKU Referring Unavailable AICHHOLZ, STEPHANIE J Referring Unavailable AICHHOLZ, STEPHANIE J Primary Care Unavailable AICHHOLZ, STEPHANIE J Referring Unavailable AICHHOLZ, STEPHANIE J Primary Care Unavailable BLAISE ALEX Referring Unavailable AICHHOLZ, STEPHANIE J Primary Care Unavailable KARISSA ALEJANDRE Attending Unavailable AICHHOLZ, STEPHANIE Referring Unavailable TIMMIMAR Hancock Attending Unavailable AICHHOLZ, STEPHANIE Referring Unavailable AICHHOLZ, STEPHANIE Attending Unavailable AICHHOLZ, STEPHANIE Attending Unavailable AICHHOLZ, STEPHANIE Attending Unavailable AICHHOLZ, STEPHANIE Attending Unavailable AICHHOLZ, STEPHANIE Attending Unavailable ALEXBLAISE Referring Unavailable ALEX, BLAISE Negrete Attending Unavailable AICHHOLZ, STEPHANIE Referring Unavailable Allergies Allergy Classification Reported Allergen(s) Allergy Type Date of Onset Reaction(s) Facility (1 source) codeine; Translations: [CODEINE PHOSPHATE] Drug Allergy 05-20-20 09 [facility] Repository (1 source) codeine; Translations: [CODEINE SULFATE] Drug Allergy 05-20-20 [facility] Repository (1 source) VANCOMYCIN AND DERIVATIVES; Translations: [VANCOMYCIN AND DERIVATIVES] Propensity to adverse reactions (disorder) 05-20-20 09 [facility] Repository (20 sources) Vancomycin; Translations: [VANCOMYCIN] Drug Allergy 03-03-20 16 Unknown, Other, Itching [facility] (7 sources) Tetanus Vaccines And Toxoid; Translations: [TETANUS VACCINES AND TOXOID] Drug Allergy 03-03-20 16 Unknown [facility] (1 source) Tetanus vaccine Drug allergy Unknown [employer] Other (20 sources) Tetanus Vaccines And Toxoid Drug Allergy 03-03-20 Unknown, Itching [facility] (4 sources) Tetanus vaccine Drug allergy Unknown [employer] Other (8 sources) Tetanus-Diphth- Acell Pertussis Drug Intolerance 06-06-20 [facility] (1 source) Vancomycin Drug Allergy 06-28-20 [facility] Repository (1 source) tetanus toxoid, adsorbed Drug allergy (disorder) 06-28-20 [facility] Repository (18 sources) Diphtheria,Pert ussis (Acellular),Tet anus Vaccine; Translations: [DIPHTHERIA,PER TUSSIS (ACELLULAR),TET ANUS VACCINE] Propensity to adverse reactions 06-06-20 [facility] Medications Current Medications Medication Drug Class(es) Dates Sig (Normalized) Sig (Original) acetaminophen 325 mg / oxyCODONE hydrochloride 5 mg oral tablet (5 sources) Opioid Agonist Start: 02-12-2024 take 1 tablet by mouth every six hours as needed oxyCODONE-acetamino phen (PERCOCET) 5-325 mg tablet Take 1 tablet by mouth every 6 hours as needed for pain. 02/12/2024 Active alendronic acid 70 mg oral tablet (20 sources) Bisphosphonate Start: 11-27-2023 End: 04-09-2024 take 1 tablet by mouth in the morning alendronate (Fosamax) 70 MG tablet Indications: Age-related osteoporosis without current pathological fracture (CMS/HCC) Take 1 tablet (70 mg) by mouth every 7 (seven) days Take in the morning with a full glass of water, on an empty stomach, and do not take anything else by mouth or lie down for the next 30 min. 12 tablet 1 11/27/2023 04/09/2024 Discontinued (Therapy completed) Start: 06-06-2023 End: 08-29-2023 alendronate (FOSAMAX) 70 [...] Comment on above: Take 1 capsule by [facility] every 6 hours as needed for cough. [...] otic suspension (1 source) Corticosteroid, Quinolone Antimicrobial Start: 024 ciprofloxacin-dexamet hasone (CiproDEX) otic suspension Indications: Cholesteatoma of left ear Administer 4 drops into affected ear(s) 2 times a day. Start your ear drops on 12/18 and continue until follow up 7.5 mL 12/18/2023 Active ergocalciferol 1.25 mg oral capsule (19 sources) Provitamin D2 Compound Start: End: take 1 capsule by mouth every week ergocalciferol (Vitamin D2) 1.25 MG (04514 UT) capsule Take 50,000 Units by mouth 1 (one) time per week 10/01/2023 04/09/2024 Discontinued (Therapy completed) Start: 06-28-2023 take 1 capsule by mo [facility] every week ergocalciferol 50,000 unit capsule (VITAMIN D2, DRISDOL) Take 1 capsule by mouth one time a week. 06/28/2023 Active Comment on above: Take 1 capsule by [facility] one time a week. fostamatinib 100 mg oral tablet (20 sources) Start: 2020 End: 2023 take 1 tablet by mouth in the morning Fostamatinib Disodium 100 MG tablet Take 100 mg by mouth in the morning and 100 mg in the evening. 05/01/2023 Active Comment on above: Take 100 mg by mouth twice daily. Take 1 tablet by darling th twice daily for 15 days. Take 1 tablet by darling th twice daily. Take 1 tablet by darling th two times a day. hydroCHLOROthiazide 25 mg oral tablet (20 sources) Thiazide Diuretic Start: 2021 End: 2023 take 1 tablet by mouth in the morning hydroCHLOROthiazide (HYDRODiuril) 25 MG tablet Take 25 mg by mouth in the morning. 01/26/2023 Active Start: 07-28-2021 End: 01-17-2022 take [...] pain moderate (4-6), first line, Starting on 12/18/23 at 1242, Recovery (only), Max total of 4 mg regardless of dose. losartan potassium 25 mg oral tablet (20 sources) Angiotensin 2 Receptor Natividad Start: 03-30-2022 End: 03-09-2024 take 2 tablets by mouth in the morning losartan (Cozaar) 25 MG tablet Take 50 mg by mouth in the morning and 50 mg before bedtime. 06/15/2022 Active Start: 02-06-2022 End: 03-07-2022 take 2 [...] at bedtime methocarbamol 750 mg oral tablet (7 sources) Muscle Relaxant take 1 tablet by mouth three times daily methocarbamol (ROBAXIN) 750 mg tablet Take 750 mg by mouth three times a day. Active 24 hr metoprolol succinate 25 mg extended release oral tablet (7 sources) beta-Adrenergic Natividad Start: End: take 0.5 tablet by mouth once daily metoprolol succinate XL (Toprol-XL) 25 MG 24 hr tablet Indications: Coronary artery disease involving [place] coronary artery of [place] heart without angina pectoris (CMS/HCC) Take 0.5 tablets (12.5 mg) by mouth Daily Do not crush or chew. 45 tablet 04/02/2024 04/09/2024 Discontinued (Therapy completed) Start: 03-04-2024 End: 04-03-2024 take 1 tablet by mouth once daily metoprolol succinate ER (TOPROL XL) 25 mg 24 hr tablet Take 12.5 mg by mouth once daily. 03/04/2024 Active ondansetron 4 mg disintegrating oral tablet (8 sources) Serotonin-3 Receptor Antagonist Start: 02-12-2024 End: 04-09-2024 take 1 tablet by mouth every eight [...] tablet (20 sources) Cholinergic Receptor Agonist Start: 03-30-2022 End: 01-11-2024 take 1 tablet by mouth in the morning, then take 1 tablet by mouth in the evening, then take 1 tablet by mouth at bedtime pilocarpine (Salagen) 5 MG tablet Take 1 tablet by mouth in the morning and 1 tablet in the evening and 1 tablet before bedtime. 01/27/2023 Active Start: 02-11-2022 End: 03-07-2022 take 1 tablet by mouth three times daily pilocarpine (SALAGEN) 5 mg tablet TAKE 1 TABLET BY MOUTH THREE TIMES A DAY 90 tablet 0 03/07/2022 Active Comment on above: Take 1 tablet by darling three times daily. TAKE 1 TABLET BY DARLING TH THREE TIMES A DAY promethazine (Phenergan) [...] daily. traMADol hydrochloride 50 mg oral tablet (6 sources) Opioid Agonist Start: 12-18-19 End: 12-23-19 [...] thrombocytopenic purpura] Onset: 03-03-2016 Resolved: 11-10-2021 Chronic Coronary atherosclerosis and other heart disease (2 sources) Coronary arteriosclerosis; Translations: [Atherosclerotic heart disease of [place] coronary artery without angina pectoris] Onset: 02-26-2024 02-26-2024 Chronic Deficiency and other anemia (3 sources) Anemia, unspecified; Translations: [Anemia, unspecified] Onset: 06-28-2023 Episodic Deficiency and other anemia (9 sources) 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 B>12< deficiency; Translations: [Other megaloblastic anemias, not elsewhere classified] Onset: 03-05-2024 03-05-2024 Episodic Diabetes mellitus without complication (4 sources) Increased glucose level; Translations: [Other abnormal glucose] Onset: 04-04-2024 04-04-2024 Episodic Essential hypertension (20 sources) Essential hypertension; Translations: [Essential (primary) hypertension] Onset: 05-13-2021 Resolved: 11-10-2021 Chronic Heart valve disorders (2 sources) Aortic valve calcification; Translations: [Nonrheumatic aortic valve disorder, unspecified] Onset: 02-26-2024 02-26-2024 Chronic Hypertension with complications and secondary hypertension (1 source) Secondary hypertension; Translations: [Secondary hypertension, unspecified] 11-24-2023 Chronic Nonspecific chest pain (2 sources) Chest pain; Translations: [Other chest pain] Onset: 04-04-2024 04-04-2024 Episodic Nutritional deficiencies (2 sources) Vitamin D deficiency; Translations: [Vitamin D deficiency, unspecified] Chronic Osteoporosis (8 sources) Senile osteoporosis; Translations: [Age-related osteoporosis without current pathological fracture] Onset: 06-06-2023 06-06-2023 Chronic Other aftercare (2 sources) Encounter for other specified surgical aftercare; Translations: [Encounter for other specified surgical aftercare] Onset: 02-06-2024 Episodic Other connective tissue disease (20 sources) Cramp in lower limb; Translations: [Sleep related leg cramps] Onset: 10-05-2017 10-05-2017 Chronic Other connective tissue disease (4 sources) Pain in left lower limb; Translations: [Pain in left leg] 04-09-2024 Episodic Other connective tissue disease (1 source) Pain in left leg; Translations: [Pain in left leg] Onset: 04-10-2024 Episodic Other diseases of kidney and ureters (4 sources) Cyst of kidney, acquired; Translations: [Cyst of kidney, acquired] Onset: 06-28-2023 Episodic Other ear and sense organ disorders (3 sources) Mixed conductive AND sensorineural hearing loss; Translations: [Mixed conductive and sensorineural hearing loss, unilateral, left ear with restricted hearing on the contralateral side] 08-16-2023 Chronic Other ear and sense organ disorders (4 sources) Hearing loss; Translations: [Unspecified hearing loss, unspecified ear] Onset: 06-28-2022 06-28-2022 Chronic Other ear and sense organ disorders (6 sources) Unspecified cholesteatoma, left ear; Translations: [Unspecified cholesteatoma, left ear] Onset: 11-14-2023 Episodic Other lower respiratory disease (2 sources) Multiple nodules of lung; Translations: [Other nonspecific abnormal finding of lung field] Episodic Other nervous system disorders (10 sources) Compression injury of nerve; 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, unspecified] Onset: 06-28-2022 06-06-2023 Chronic Other nervous system disorders (1 source) Postoperative pain ; Translations: [Other acute postprocedural pain] 12-18-2023 Episodic Other nervous system disorders (2 sources) Other acute postprocedural pain; Translations: [Other acute postprocedural pain] Onset: 12-18-2023 Episodic Other non-traumatic joint disorders (2 sources) Pain in left knee; Translations: [Pain in joint, lower leg] Onset: 04-04-2024 04-04-2024 Episodic Other nutritional; endocrine; and metabolic disorders (8 sources) Body mass index 30+ - obesity; Translations: [Obesity, unspecified] Onset: 06-06-2023 06-06-2023 Chronic Other nutritional; endocrine; and metabolic disorders (1 source) Hyperuricemia without signs of inflammatory arthritis and tophaceous disease Episodic Other screening for suspected conditions (not mental disorders or infectious disease) (2 sources) Patient encounter status; Translations: [Encounter for screening mammogram for malignant neoplasm of breast] Onset: 04-04-2024 04-04-2024 Episodic Other skin disorders (1 source) Mass of skin of right lower limb; Translations: [Disorder of the skin and subcutaneous tissue, unspecified] Episodic Peripheral and visceral atherosclerosis (17 sources) Intermittent claudication; Translations: [Peripheral vascular disease, unspecified] Onset: 06-08-2023 06-08-2023 Chronic Pulmonary heart disease (2 sources) Pulmonary arterial hypertension; Translations: [Secondary pulmonary arterial hypertension] Onset: 03-27-2024 03-27-2024 Chronic Residual codes; unclassified (20 sources) Obstructive sleep apnea syndrome; Translations: [Obstructive sleep apnea (adult) (pediatric)] Onset: 05-13-2021 Chronic Residual codes; unclassified (4 sources) Obstructive sleep apnea (adult) (pediatric); Translations: [Obstructive sleep apnea (adult) (pediatric)] Onset: 11-10-2021 Resolved: 11-10-2021 Chronic Spondylosis; intervertebral disc disorders; other back problems (2 sources) Low back pain; Translations: [Lumbar back pain] Onset: 02-12-2024 02-12-2024 Episodic Substance-related disorders (10 sources) Tobacco dependence syndrome; Translations: [Nicotine dependence, unspecified, uncomplicated] Onset: 06-28-2022 06-06-2023 Chronic Systemic lupus erythematosus and connective tissue disorders (20 sources) Lupus erythematosus; Translations: [Systemic lupus erythematosus, unspecified] Onset: 03-03-2016 Resolved: 11-10-2021 03-03-2016 Chronic Thyroid disorders (3 sources) Thyroid nodule; Translations: [Nontoxic single thyroid nodule] Onset: 02-26-2024 04-04-2024 Chronic Thyroid disorders (11 sources) Disorder of thyroid gland; Translations: [Disorder of thyroid, unspecified] Onset: 06-28-2022 06-06-2023 Episodic Tuberculosis (1 source) Acute miliary tuberculosis, unspecified; Translations: [Acute miliary tuberculosis, unspecified] Onset: 04-04-2024 Episodic Unclassified (2 sources) Unknown / UNK(Unknown) Onset: 05-24-2016 Unclassified (2 sources) Post-op; Translations: [Post-op] Onset: 01-02-2024 Past or Other Problems Problem Classification Problem Date Documented Date Episodic/Chronic Diseases of mouth; excluding dental (10 sources) Xerostomia; Translations: [Dry mouth, unspecified] Onset: 01-05-2017 06-06-2023 Episodic Fluid and electrolyte disorders (2 sources) Hyperkalemia with normal acid-base balance; Translations: [Hyperkalemia] Onset: 11-27-2023 11-27-2023 Episodic Malaise and fatigue (4 sources) Malaise and fatigue; Translations: [Other malaise] Onset: 11-28-2023 Episodic Mycoses (4 sources) Candidiasis of mouth; Translations: [Candidal stomatitis] Onset: 11-10-2016 Resolved: 06-29-2022 11-10-2016 Episodic Other bone disease and musculoskeletal deformities (5 sources) Disorder of bone, unspecified; Translations: [Other specified disorders of bone, lower leg] Onset: 05-24-2016 Episodic Other connective tissue disease (1 source) Pain in right leg; Translations: [PAIN IN RIGHT LEG] Onset: 05-24-2016 Episodic Other connective tissue disease (8 sources) Pain in bilateral legs; Translations: [Pain in right leg] Onset: 06-06-2023 06-06-2023 Episodic Other connective tissue disease (2 sources) Other symptoms and signs involving the musculoskeletal system; Translations: [Other musculoskeletal symptoms referable to limbs] Onset: 11-28-2023 11-28-2023 Episodic Other ear and sense organ disorders (7 sources) Cholesteatoma; Translations: [Unspecified cholesteatoma, left ear] Onset: 11-14-2023 11-14-2023 Episodic Other non-traumatic joint disorders (8 sources) Pain of left wrist; Translations: [Pain in left wrist] Onset: 06-06-2023 06-06-2023 Episodic Other nutritional; endocrine; and metabolic disorders (20 sources) Abnormal weight loss; Translations: [Abnormal weight loss] Onset: 03-03-2016 03-03-2016 Episodic Otitis media and related conditions (18 sources) Perforation of left tympanic membrane; Translations: [Unspecified perforation of tympanic membrane, left ear] Onset: 06-29-2022 08-16-2023 Episodic Residual codes; unclassified (20 sources) Family history of breast cancer; Translations: [Family history of malignant neoplasm of breast] Onset: 04-13-2017 04-13-2017 Episodic Unclassified (3 sources) Onset: 11-14-2023 11-14-2023 Results Test Name Value Interpretation Reference Range Facility CBC AND AUTO DIFFon 04-10-20 24 ABSOLUTE BASOPHIL 0.0 X10E9/L Normal 0.0-0.2 [facility] Comment on above: Performed By: #### 1 988-5, CBCA, 76767-3 #### [facility] ([id number]) [address], [address] [place] [address] ABSOLUTE NEUTROPHIL 2.7 X10E9/L Normal 1.5-6.6 [facility] Comment on above: Performed By: #### 1 988-5, CBCA, 61824-2 #### [facility] ([id number]) [address], [facility] [address] [place] [address] Basophils/100 WBC (Bld) 0.3 % Normal [facility] Comment on above: Performed By: #### 1 988-5, CBCA, 10737-0 #### [facility] ([id number]) [address], [address] [place] [address] Eosinophils (Bld) [#/Vol] 0.0 10*3/uL Normal 0.0-0.4 [facility] Comment on above: Performed By: #### 1 988-5, CBCA, 39895-9 #### [facility] ([id number]) [address] [address] [place] [address] Eosinophils/100 WBC (Bld) 0.9 % Normal [facility] Comment on above: Performed By: #### 1 988-5, CBCA, 36452-4 #### [facility] ([id number]) [address], [address] [place] [address] Erythrocyte distribution width (RBC) [Ratio] 15.9 % High 11.5-15.0 [facility] Comment on above: Performed By: #### 1 988-5, CBCA, 05160-5 #### [facility] ([id number]) [address], [address] [place] [address] Hematocrit (Bld) [Volume fraction] 34.3 % Low 35-47 [facility] Comment on above: Performed By: #### 1 988-5, CBCA, 11057-8 #### [facility] ([id number]) [address], [address] [place] [address] Hemoglobin (Bld) [Mass/Vol] 11.3 g/dL Low 11.7-15.5 [facility] Comment on above: Performed By: #### 1 988-5, CBCA, 30785-2 #### [facility] ([id number]) [address], [facility] [address] [place] [address] Lymphocytes (Bld) [#/Vol] 2.1 10*3/uL Normal 1.0-3.5 [facility] Comment on above: Performed By: #### 1 988-5, CBCA, 67937-1 #### [facility] ([id number]) [address], [address] [place] [address] Lymphocytes/100 WBC (Bld) 40.8 % Normal [facility] Comment on above: Performed By: #### 1 988-5, CBCA, 48774-0 #### [facility] ([id number]) [address], [facility] [address] [place] [address] MCH (RBC) [Entitic mass] 31.8 pg Normal 27-34 [facility] Comment on above: Performed By: #### 1 988-5, CBCA, 95867-7 #### [facility] ([id number]) [address], [address] [place] [address] MCHC (RBC) [Mass/Vol] 32.8 g/dL Normal 32-36 [facility] Comment on above: Performed By: #### 1 988-5, CBCA, 86246-4 #### [facility] ([id number]) [address], [address] [place] [address] MCV (RBC) [Entitic vol] 97 fL Normal 80-100 [facility] Comment on above: Performed By: #### 1 988-5, CBCA, 04851-3 #### [facility] ([id number]) [address], [facility] [address] [place] [address] Monocytes (Bld) [#/Vol] 0.2 10*3/uL Normal 0-0.9 [facility] Comment on above: Performed By: #### 1 988-5, CBCA, 75877-2 #### [facility] ([id number]) [address], [facility] [address] [place] [address] Monocytes/100 WBC (Bld) 3.9 % Normal [facility] Comment on above: Performed By: #### 1 988-5, CBCA, 17113-6 #### [facility] ([id number]) [address], [address] [place] [address] Neutrophils/100 WBC (Bld) 54.1 % Normal [facility] Comment on above: Performed By: #### 1 988-5, CBCA, 87829-2 #### [facility] ([id number]) [address], [facility] [address] [place] [address] Platelet mean volume (Bld) [Entitic vol] 8.3 fL Normal 7-12 [facility] Comment on above: Performed By: #### 1 988-5, CBCA, 59746-0 #### [facility] ([id number]) [address], [address] [place] [address] Platelets (Bld) [#/Vol] 208 10*3/uL Normal 150-450 [facility] Comment on above: Performed By: #### 1 988-5, CBCA, 26766-6 #### [facility] ([id number]) [address] [address] [place] [address] RBC COUNT 3.54 X10E12/L Low 3.80-5.20 [facility] Comment on above: Performed By: #### 1 988-5, CBCA, 49128-2 #### [facility] ([id number]) [address] [address] WBC (Bld) [#/Vol] 5.1 10*3/uL Normal 4.0-11.0 [facility] Comment on above: Performed By: #### 1 988-5, CBCA, 86108-8 #### [facility] ([id number]) [address] [address] CRP [Mass/Vol]on 04-10-2024 C REACTIVE PROTEIN 1.2 mg/dL High 0.000-0.744 [facility] Comment on above: Performed By: #### 1 988-5, CBCA, 78812-6 #### [facility] ([id number]) [address] [address] ESR Photometric method (Bld) [Velocity]on 04-10-2024 ESR, ERYTHROCYTE SEDIMENTATION RATE 21 mm/h Normal 0-30 [facility] Comment on above: Performed By: #### 1 988-5, CBCA, 04484-9 #### [facility] ([id number]) [address] [address] Leeanna 04-09-2024 STEPHN Telephone (HEMASA) ANDREI FISH ([id number]) 1950 F Date Time Provider Department 04/09/24 BETSY PIMENTEL During your visit today, we recorded the following information about you: Betsy Pimentel RN 04/09/2024 9:16 AM Signed Pt FAIRGROUND OPERATOR Stephanie called to inquire if there are any special instructions/ recommendations for schedule thyroid fine needle bx at [facility]. 03/05/24 platelet result 144. Encouraged to ask radiology dept if they have any requirements for platelet number. Also recommend recheck CBC prior to verify no drastic changes, and standard bleeding precautions following, should platelets remain at a stable number. She will call with any further needs or concerns once she discusses with radiology team. Loulou: Any further recommendations? RJA Young Vivek, MD 04/09/2024 3:22 PM Signed No further instructions - you are right on. Allergies As of Date: 04/09/2024 Noted Allergy Reaction TETNUS (TETANUS VACCINES AND TOXO*03/03/2016 16 - Unknown VANCOMYCIN 03/03/2016 16 - Unknown Comments: Burning sensation DIPHTHERIA,PERTUSSIS (ACELLULAR),* 3 2 - Rash Date Reviewed: 03/05/2024 Reviewed by: Emily Ponce MA - Fully Assessed Reason for Visit: Thyroid fine needle biopsy at [facility]/ITP [Other] Prescriptions as of 04/09/2024 - fostamatinib (TAVALISSE) 100 mg tablet Take 1 tablet by mouth two times a day. - methocarbamol (ROBAXIN) 750 mg tablet Take 750 mg by mouth three times a day. - metoprolol succinate ER (TOPROL XL) 25 mg 24 hr tablet Take 12.5 mg by mouth once daily. - traMADol (ULTRAM) 50 mg tablet Take 50 mg by mouth every 6 hours as needed for pain. - ondansetron orally disintegrating (ZOFRAN ODT) 4 mg disintegrating tablet Take 4 mg by mouth every 8 hours as needed for nausea/vomiting. - oxyCODONE-acetaminophe n (PERCOCET) 5-325 mg tablet Take 1 tablet by mouth every 6 hours as needed for pain. - pilocarpine (SALAGEN) 5 mg tablet Take 1 tablet by mouth three times a day. - hydroCHLOROthiazide 25 mg tablet take 1 tablet by mouth every day - losartan (COZAAR) 25 mg tablet take 2 tablets by mouth every day at bedtime - ergocalciferol 50,000 unit capsule (VITAMIN D2, DRISDOL) Take 1 capsule by mouth one time a week. - alendronate (FOSAMAX) 70 mg tablet PLEASE SEE ATTACHED FOR DETAILED DIRECTIONS - spironolactone (ALDACTONE) 25 mg tablet Take 25 mg by mouth once daily. - benzonatate (TESSALON PERLE) 100 mg capsule TAKE 1 CAPSULE BY MOUTH EVERY 6 HOURS NEEDED FOR COUGH. - cholecalciferol, vitamin D3, (VITAMIN D3 ORAL) Take by mouth. 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*03/05/2024 Encounter Status:Closed by BETSY PIMENTEL on 04/09/24 Normal [facility] HGB A1C (GLYCO-HGB)on 2023 Glucose [Mass/Vol] 134 mg/dL Normal [facility] Comment on above: Performed By: #### T HYR, HA1C #### [facility] ([id number]) [address], [address] [place] [address] HbA1c (Bld) [Mass fraction] 6.3 % High 4.4-5.6 [facility] Comment on above: Result Comment: NOTE ADA Guidelines Result HgbA1c Normal : less than 5.7 % Prediabetes : 5.7 % to 6.4 % Diabetes : > 6.4 % Use with caution in patients with abnormal hemoglobin variants as the half-life of red blood cells and in vivo glycation rates are affected. Performed By: #### SMAUEL DENNIS #### [facility] ([id number]) [address], [address] [address] MICROALBUMIN - ALBUMIN:CREAT ININE URINE RATIOon 04-04-2024 ALB/CREAT RATIO 14.4 mg/g creat Normal 0.0-30.0 [facility] Comment on above: Performed By: #### RED Delgado #### [facility] ([id number]) [address], [address] [address] Albumin DL <= 20 mg/L (U) [Mass/Vol] 1.6 mg/dL Normal 0.0-1.9 [facility] Comment on above: Performed By: #### RED Delgado #### [facility] ([id number]) [address] [address] URINE CREAT 111.21 mg/dL Normal [facility] Comment on above: Performed By: #### RED Delgado #### [facility] ([id number]) [address], [facility] [address] [place] [address] THYROID PROFILEon 04-04-2024 Free T4 [Mass/Vol] 0.80 ng/dL Normal 0.61-1.60 [facility] Comment on above: Performed By: #### SAMUEL DENNIS #### [facility] ([id number]) [address] [place] [address] TSH 0.29 uIU/mL Low 0.49-4.67 [facility] Comment on above: Performed By: #### SAMUEL DENNIS #### [facility] ([id number]) [address] [place] [address] URINALYSISon 04-04-2024 Bilirubin Ql (U) Negative Normal NEG [facility] Comment on above: Performed By: #### RED Delgado #### [facility] ([id number]) [address], [address] [place] [address] BLOOD/HGB Negative Normal NEG [facility] Comment on above: Performed By: #### RED Delgado #### [facility] ([id number]) [address], [address] [place] [address] Color (U) YELLOW Normal YELLOW [facility] Comment on above: Performed By: #### RED Delgado #### [facility] ([id number]) [address], [address] [place] [address] Glucose Ql (U) Negative Normal NEG [facility] Comment on above: Performed By: #### RED Delgado #### [facility] ([id number]) [address], [address] [place] [address] Ketones Ql (U) Negative Normal NEG [facility] Comment on above: Performed By: #### RED Delgado #### [facility] ([id number]) [address], [address] [place] [address] Leukocyte esterase Test strip Ql (U) Negative Normal NEG [facility] Comment on above: Performed By: #### RED Delgado #### [facility] ([id number]) [address], [address] [place] [address] MUCOUS PRESENT Abnormal NONE [facility] Comment on above: Performed By: #### RED Delgado #### [facility] ([id number]) [address], [address] [place] [address] Nitrite Ql (U) Negative Normal NEG [facility] Comment on above: Performed By: #### RED Delgado #### [facility] ([id number]) [address], [address] [place] [address] pH (U) 6.0 [pH] Normal 5.0-8.5 [facility] Comment on above: Performed By: #### Lara Sheikh, RED #### [facility] ([id number]) [address], [address] [place] [address] Protein Ql (U) Trace Abnormal NEG [facility] Comment on above: Performed By: #### Lara Sheikh, MALPHYLLIS #### [facility] ([id number]) [address], [address] [place] [address] R.B.CELLS 1 /hpf Normal 0-5 [facility] Comment on above: Performed By: #### Lara Sheikh, RED #### [facility] ([id number]) [address], [address] [place] [address] Specific gravity (U) [Rel density] 1.017 Normal 1.003-1.035 [facility] Comment on above: Performed By: #### Lara Sheikh, VIRGINIAPHYLLIS #### [facility] ([id number]) [address], [address] [place] [address] SQUAMOUS EPITHELIUM 6 /hpf High 0-5 [facility] Comment on above: Performed By: #### Lara Sheikh, VIRGINIAPHYLLIS #### [facility] ([id number]) [address], [address] [place] [address] TURBIDITY CLEAR Normal CLEAR [facility] Comment on above: Performed By: #### Lara Sheikh, VIRGINIAPHYLLIS #### [facility] ([id number]) [address], [address] [place] [address] Urobilinogen (U) [Mass/Vol] mg/dL Normal <1.1 [facility] Comment on above: Performed By: #### Lara Sheikh, RED #### [facility] ([id number]) [address] [place] [address] W.B.CELLS 2 /hpf Normal 0-5 [facility] Comment on above: Performed By: #### RED Delgado #### [facility] ([id number]) [address], [address] [place] [address] CBC W Auto Differential pane l (Bld)on 03-05-2024 Basophils (Bld) [#/Vol] 10*3/uL Normal <0.11 [facility] Comment on above: Order Comment: Speci men Type: BLOOD SPECIMEN Ordering Facility: [facility] Address: [address] [place] [address] Performed By: #### 2 132-9, 19563-9, 2284-8, 2275-4 #### [facility] CLIA [id number] [address] [place] [address] [place] Basophils/100 WBC (Bld) 0.2 % Normal [facility] Comment on above: Order Comment: Speci men Type: BLOOD SPECIMEN Ordering Facility: [facility] Address: [address] [place] [address] Performed By: #### 2 132-9, 93922-5, 2284-8, 2275-4 #### [facility] CLIA [id number] [address] [place] [address] [place] Differential cell count method Nom (Bld) Auto Normal [facility] Comment on above: Order Comment: Speci men Type: BLOOD SPECIMEN Ordering Facility: [facility] Address: [address] [place] [address] Performed By: #### 2 132-9, 31470-3, 2283-8, 2275-4 #### [facility] CLIA [id number] [address] [place] [address] [place] Eosinophils (Bld) [#/Vol] 0.06 10*3/uL Normal <0.46 [facility] Comment on above: Order Comment: Speci men Type: BLOOD SPECIMEN Ordering Facility: [facility] Address: [address] [place] [address] Performed By: #### 2 132-9, 34549-6, 4-8, 6-4 #### [facility] CLIA [id number] [address] [place] [address] [place] Eosinophils/100 WBC (Bld) 1.3 % Normal [facility] Comment on above: Order Comment: Speci men Type: BLOOD SPECIMEN Ordering Facility: [facility] Address: [address] [place] [address] Performed By: #### 2 132-9, 70157-1, 4-8, 2275-4 #### [facility] CLIA [id number] [address] [place] [address] [place] Erythrocyte distribution width (RBC) [Ratio] 14.6 % Normal 11.5-15.0 [facility] Comment on above: Order Comment: Speci men Type: BLOOD SPECIMEN Ordering Facility: [facility] Address: [address] [place] [address] Performed By: #### 2 132-9, 66784-3, 2283-8, 2275-4 #### [facility] CLIA [id number] [address] [place] [address] [place] Hematocrit (Bld) [Volume fraction] 31.2 % Low 36.0-46.0 [facility] Comment on above: Order Comment: Speci men Type: BLOOD SPECIMEN Ordering Facility: [facility] Address: [address] [place] [address] Performed By: #### 2 132-9, 38993-3, 2283-8, 2275-4 #### [facility] CLIA [id number] [address] [place] [address] [place] Hemoglobin (Bld) [Mass/Vol] 9.9 g/dL Low 11.5-15.5 [facility] Comment on above: Order Comment: Speci men Type: BLOOD SPECIMEN Ordering Facility: [facility] Address: [address] [place] [address] Performed By: #### 2 132-9, 95692-5, 2283-8, 2275-4 #### [facility] CLIA [id number] [address] [place] [address] [place] Immature granulocytes (Bld) [#/Vol] 10*3/uL Normal <0.10 [facility] Comment on above: Order Comment: Speci men Type: BLOOD SPECIMEN Ordering Facility: [facility] Address: [address] [place] [address] Performed By: #### 2 132-9, 38646-3, 2283-8, 2275-4 #### [facility] CLIA [id number] [address] [place] [address] [place] Immature granulocytes/100 WBC (Bld) 0.0 % Normal [facility] Comment on above: Order Comment: Speci men Type: BLOOD SPECIMEN Ordering Facility: [facility] Address: [address] [place] [address] Performed By: #### 2 132-9, 47039-1, 2283-8, 2275-4 #### [facility] CLIA [id number] [address] [place] [address] [place] Lymphocytes (Bld) [#/Vol] 1.68 10*3/uL Normal 1.00-4.00 [facility] Comment on above: Order Comment: Speci men Type: BLOOD SPECIMEN Ordering Facility: [facility] Address: [address] [place] [address] Performed By: #### 2 132-9, 56695-1, 2283-8, 2275-4 #### [facility] CLIA [id number] [address] [place] [address] [place] Lymphocytes/100 WBC (Bld) 36.4 % Normal [facility] Comment on above: Order Comment: Speci men Type: BLOOD SPECIMEN Ordering Facility: [facility] Address: [address] [place] [address] Performed By: #### 2 132-9, 75592-9, 2283-8, 2275-4 #### [facility] CLIA [id number] [address] [place] [address] [place] MCH (RBC) [Entitic mass] 31.0 pg Normal 26.0-34.0 [facility] Comment on above: Order Comment: Speci men Type: BLOOD SPECIMEN Ordering Facility: [facility] Address: [address] [place] [address] Performed By: #### 2 132-9, 37530-1, 2283-8, 2275-4 #### [facility] CLIA [id number] [address] [place] [address] [place] MCHC (RBC) [Mass/Vol] 31.7 g/dL Normal 30.5-36.0 [facility] Comment on above: Order Comment: Speci men Type: BLOOD SPECIMEN Ordering Facility: [facility] Address: [address] [place] [address] Performed By: #### 2 132-9, 09049-3, 2283-8, 4 #### [facility] CLIA [id number] [address] [place] [address] [place] MCV (RBC) [Entitic vol] 97.8 fL Normal 80.0-100.0 [facility] Comment on above: Order Comment: Speci men Type: BLOOD SPECIMEN Ordering Facility: [facility] Address: [address] [place] [address] Performed By: #### 2 132-9, 59800-7, 2283-8, 2275-4 #### [facility] CLIA [id number] [address] [place] [address] [place] Monocytes (Bld) [#/Vol] 0.22 10*3/uL Normal <0.87 [facility] Comment on above: Order Comment: Speci men Type: BLOOD SPECIMEN Ordering Facility: [facility] Address: [address] [place] [address] Performed By: #### 2 132-9, 78931-7, 4-8, 6-4 #### [facility] CLIA [id number] [address] [place] [address] [place] Monocytes/100 WBC (Bld) 4.8 % Normal [facility] Comment on above: Order Comment: Speci men Type: BLOOD SPECIMEN Ordering Facility: [facility] Address: [address] [place] [address] Performed By: #### 2 132-9, 93169-1, 2283-8, 2275-4 #### [facility] CLIA [id number] [address] [place] [address] [place] Neutrophils (Bld) [#/Vol] 2.65 10*3/uL Normal 1.45-7.50 [facility] Comment on above: Order Comment: Speci men Type: BLOOD SPECIMEN Ordering Facility: [facility] Address: [address] [place] [address] Performed By: #### 2 132-9, 26558-5, 2283-8, 2275-4 #### [facility] CLIA [id number] [address] [place] [address] [place] Neutrophils/100 WBC (Bld) 57.3 % Normal [facility] Comment on above: Order Comment: Speci men Type: BLOOD SPECIMEN Ordering Facility: [facility] Address: [address] [place] [address] Performed By: #### 2 132-9, 07632-6, 2283-8, 2275-4 #### [facility] CLIA [id number] [address] [place] [address] [place] Nucleated RBC (Bld) [#/Vol] 10*3/uL Normal <0.01 [facility] Comment on above: Order Comment: Speci men Type: BLOOD SPECIMEN Ordering Facility: [facility] Address: [address] [place] [address] Performed By: #### 2 132-9, 79503-2, 4-8, 6-4 #### [facility] CLIA [id number] [address] [place] [address] [place] Nucleated RBC/100 WBC (Bld) [Ratio] 0.0 /100 WBC Normal [facility] Comment on above: Order Comment: Speci men Type: BLOOD SPECIMEN Ordering Facility: [facility] Address: [address] [place] [address] Performed By: #### 2 132-9, 14354-5, 2283-8, 2275-4 #### [facility] CLIA [id number] [address] [place] [address] [place] Platelet mean volume (Bld) [Entitic vol] 9.6 fL Normal 9.0-12.7 [facility] Comment on above: Order Comment: Speci men Type: BLOOD SPECIMEN Ordering Facility: [facility] Address: [address] [place] [address] Performed By: #### 2 132-9, 13983-3, 2283-8, 2275-4 #### [facility] CLIA [id number] [address] [place] [address] [place] Platelets (Bld) [#/Vol] 144 10*3/uL Low 150-400 [facility] Comment on above: Order Comment: Speci men Type: BLOOD SPECIMEN Ordering Facility: [facility] Address: [address] [place] [address] Performed By: #### 2 132-9, 18500-0, 2283-8, 2275-4 #### [facility] CLIA [id number] [address] [place] [address] [place] RBC (Bld) [#/Vol] 3.19 10*6/uL Low 3.90-5.20 [place] Comment on above: Order Comment: Speci men Type: BLOOD SPECIMEN Ordering Facility: [facility] Address: [address] [place] [address] Performed By: #### 2 132-9, 82246-4, 2284-8, 2276-4 #### [facility] CLIA [id number] [address] [place] [address] [place] WBC (Bld) [#/Vol] 4.62 10*3/uL Normal 3.70-11.00 [place] Comment on above: Order Comment: Fabricio tapia Type: BLOOD SPECIMEN Ordering Facility: [facility] Address: [address] [place] [address] Performed By: #### 2 132-9, 92903-3, 2284-8, 2276-4 #### [facility] CLIA [id number] [address] [place] [address] OF [place] CNNURSEon 03-05-2024 CNNURSE Nurse Visit (HEMASA) ANDREI FISH ([id number]) 1950 F Date Time Provider Department 03/05/24 11:15 AM MATTEO NURSE CLARENCE OMALLEY During your visit today, we recorded the following information about you: Marely Alvarez MA 03/05/2024 11:44 AM Signed Patient Identification confirmed: yes. Injection given and documented on SEP per provider order. Marely Alvarez MA Referring Provider: RINKU RAMSEY [[id number]] Allergies As of Date: 03/05/2024 Noted Allergy Reaction TETNUS (TETANUS VACCINES AND TOXO*03/03/2016 16 - Unknown VANCOMYCIN 03/03/2016 16 - Unknown Comments: Burning sensation DIPHTHERIA,PERTUSSIS (ACELLULAR),* 3 2 - Rash Date Reviewed: 03/05/2024 Reviewed by: Emily Ponce MA - Fully Assessed Primary Visit Diagnosis:Megaloblasti c 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 deficiency [D53.1] Other Visit Diagnoses:Abnormal weight loss [R63.4] Lupus (HCC) [M32.9] Thrombocytopenia (HCC) [D69.6] Chronic ITP (idiopathic thrombocytopenia) (HCC) [D69.3] Order(s):[] cyanocobalamin 1,000 mcg injectionDisp: Rfl: Prescriptions as of 03/05/2024 - methocarbamol (ROBAXIN) 750 mg tablet Take 750 mg by mouth three times a day. - metoprolol succinate ER (TOPROL XL) 25 mg 24 hr tablet Take 12.5 mg by mouth once daily. - traMADol (ULTRAM) 50 mg tablet Take 50 mg by mouth every 6 hours as needed for pain. - ondansetron orally disintegrating (ZOFRAN ODT) 4 mg disintegrating tablet Take 4 mg by mouth every 8 hours as needed for nausea/vomiting. - oxyCODONE-acetaminophe n (PERCOCET) 5-325 mg tablet Take 1 tablet by mouth every 6 hours as needed for pain. - pilocarpine (SALAGEN) 5 mg tablet Take 1 tablet by mouth three times a day. - hydroCHLOROthiazide 25 mg tablet take 1 tablet by mouth every day - losartan (COZAAR) 25 mg tablet take 2 tablets by mouth every day at bedtime - ergocalciferol 50,000 unit capsule (VITAMIN D2, DRISDOL) Take 1 capsule by mouth one time a week. - alendronate (FOSAMAX) 70 mg tablet PLEASE SEE ATTACHED FOR DETAILED DIRECTIONS - fostamatinib (TAVALISSE) 100 mg tablet Take 1 tablet by mouth two times a day. - spironolactone (ALDACTONE) 25 mg tablet Take 25 mg by mouth once daily. - benzonatate (TESSALON PERLE) 100 mg capsule TAKE 1 CAPSULE BY MOUTH EVERY 6 HOURS NEEDED FOR COUGH. - cholecalciferol, vitamin D3, (VITAMIN D3 ORAL) Take by mouth. Problem List As Of Date 03/05/2024 Noted Resolved Thrombocytopenia (HCC) [D69.6] 03/03/2016 Abnormal weight loss [R63.4] 03/03/2016 Lupus (HCC) [M32.9] 03/03/2016 Acute ITP (HCC) [D69.3] 05/26/2016 Family history of breast cancer [Z80.3] 04/13/2017 Chronic ITP (idiopathic thrombocytopenia) (HCC)*09/08/2017 Nocturnal leg cramps [G47.62] 10/05/2017 Obstructive sleep apnea syndrome [G47.33] 05/13/2021 Essential hypertension [I10] 05/13/2021 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 deficie*03/05/2024 Visit Notes: >> Marely Alvarez MA Tue Mar 05, 2024 11:40 AM Status: Signed Patient Identification confirmed: yes. Injection given and documented on SEP per provider order. Marely Alvarez MA Prescriptions ordered this encounter Disp Refills Start End CYANOCOBALAMIN (VIT B-12) 1,000 MCG/* 03/05/2024 03/05/2024 Route: INTRAMUSCULA Encounter Status:Closed by MARELY ALVAREZ on 03/05/24 [facility] CNOVSPon 03-05-2024 CNOVS Visit (SP) Office (HEMASA) ANDREI FISH ([id number]) 1950 F Date Time Provider Department 03/05/24 10:30 AM RINKU RAMSEY During your visit today, we recorded the following information about you: Temperature Pulse Respiration Blood pressure 97.7 degrees 74/minute 16/minute 128/72 Weight Height 87.4 kg 1.588 m Rinku Ramsey MD 03/07/2024 12:47 PM Signed NAME: Andrei Fish CLINIC NO.: [id number] DATE OF SERVICE: March 05, 2024 (Roxy) Some elements in this clinic note that are critical to medical decision making have been carefully reviewed and included from a prior clinic note dated: February 02, 2024 (Roxy) Additional Clinicians involved in Andrei Fish's care: [...] RTC in 6 weeks Labs same day - HPI: CASE HISTORY: Reverse Chronological Order 03/29/2023 [...] 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 BP slightly elevated, but recently a (more content not included)... Normal [facility] Comprehensive metabolic 2000 panelon 03-05-2024 Albumin [Mass/Vol] 3.9 g/dL Normal 3.9-4.9 [facility] Comment on above: Order Comment: Speci men Type: BLOOD SPECIMEN Ordering Facility: [facility] Address: [address] [place] [address] Performed By: #### 2 132-9, 94082-5, 2283-8, 2275-4 #### [facility] CLIA [id number] [address] [place] [address] [place] ALP [Catalytic activity/Vol] 71 U/L Normal 34-123 [facility] Comment on above: Order Comment: Speci men Type: BLOOD SPECIMEN Ordering Facility: [facility] Address: [address] [place] [address] Performed By: #### 2 132-9, 88927-7, 2283-8, 2275-4 #### [facility] CLIA [id number] [address] [place] [address] [place] ALT [Catalytic activity/Vol] 10 U/L Normal 7-38 [facility] Comment on above: Order Comment: Speci men Type: BLOOD SPECIMEN Ordering Facility: [facility] Address: [address] [place] [address] Performed By: #### 2 132-9, 93894-4, 2283-8, 2275-4 #### [facility] CLIA [id number] [address] [place], [place] [address] [place] Anion gap [Moles/Vol] 8 mmol/L Normal 8-15 [facility] Comment on above: Order Comment: Speci men Type: BLOOD SPECIMEN Ordering Facility: [facility] Address: [address] [place] [address] Performed By: #### 2 132-9, 09088-4, 2284-8, 6-4 #### [facility] CLIA [id number] [address] [place] [address] [place] AST [Catalytic activity/Vol] 18 U/L Normal 13-35 [facility] Comment on above: Order Comment: Speci men Type: BLOOD SPECIMEN Ordering Facility: [facility] Address: [address] [place] [address] Performed By: #### 2 132-9, 88148-3, 4-8, 6-4 #### [facility] CLIA [id number] [address] [place] [address] [place] Bilirubin [Mass/Vol] 0.7 mg/dL Normal 0.2-1.3 [facility] Comment on above: Order Comment: Speci men Type: BLOOD SPECIMEN Ordering Facility: [facility] Address: [address] [place] [address] Performed By: #### 2 132-9, 73006-2, 2283-8, 6-4 #### [facility] CLIA [id number] [address] [place] [address] [place] Calcium [Mass/Vol] 9.4 mg/dL Normal 8.5-10.2 [facility] Comment on above: Order Comment: Speci men Type: BLOOD SPECIMEN Ordering Facility: [facility] Address: [address] [place] [address] Performed By: #### 2 132-9, 71948-0, 2284-8, 6-4 #### [facility] CLIA [id number] [address] [place] [address] [place] Chloride [Moles/Vol] 106 mmol/L Normal 98-107 [facility] Comment on above: Order Comment: Speci men Type: BLOOD SPECIMEN Ordering Facility: [facility] Address: [address] [place] [address] Performed By: #### 2 132-9, 85657-1, 2284-8, 2276-4 #### [facility] CLIA [id number] [address] [place] [address] [place] CO2 [Moles/Vol] 26 mmol/L Normal 22-30 [facility] Comment on above: Order Comment: Speci men Type: BLOOD SPECIMEN Ordering Facility: [facility] Address: [address] [place] [address] Performed By: #### 2 132-9, 79927-7, 2284-8, 6-4 #### [facility] CLIA [id number] [address] [place] [address] [place] Creatinine [Mass/Vol] 1.14 mg/dL High 0.58-0.96 [facility] Comment on above: Order Comment: Speci men Type: BLOOD SPECIMEN Ordering Facility: [facility] Address: [address] [place] [address] Performed By: #### 2 132-9, 69939-2, 2284-8, 6-4 #### [facility] CLIA [id number] [address] [place] [address] [place] Creatinine and Glomerular filtration rate.predicted panel (S/P/Bld) 51 mL/min/1.73m??? Low >=60 [facility] Comment on above: Order Comment: Speci men Type: BLOOD SPECIMEN Ordering Facility: [facility] Address: [address] [place] [address] Result Comment: Miryam mated Glomerular Filtration Rate [...] reflect actual GFR. Performed By: #### 2 132-9, 68875-0, 4-8, 6-4 #### [facility] CLIA [id number] [address] [place] [address] [place] Glucose [Mass/Vol] 148 mg/dL High 74-99 [facility] Comment on above: Order Comment: Speci men Type: BLOOD SPECIMEN Ordering Facility: [facility] Address: [address] [place] [address] Result Comment: The [place] Diabetes Association (ADA) provides guidance for cutoff [...] Standards of Medical Care in Diabetes 2016, [place] Diabetes Association. Diabetes Care. 2016.39(Suppl 1). Performed By: #### 2 132-9, 53020-8, 2283-8, 2275-4 #### [facility] CLIA [id number] [address] [place] [address] [place] Potassium [Moles/Vol] 4.7 mmol/L Normal 3.7-5.1 [facility] Comment on above: Order Comment: Speci men Type: BLOOD SPECIMEN Ordering Facility: [facility] Address: [address] [place] [address] Performed By: #### 2 132-9, 82212-1, 4-8, 2275-4 #### [facility] CLIA [id number] [address] [place] [address] [place] Protein [Mass/Vol] 7.0 g/dL Normal 6.3-8.0 [facility] Comment on above: Order Comment: Speci men Type: BLOOD SPECIMEN Ordering Facility: [facility] Address: [address] [place] [address] Performed By: #### 2 132-9, 87176-6, 2284-8, 2276-4 #### [facility] CLIA [id number] [address] [place] [address] [place] Sodium [Moles/Vol] 140 mmol/L Normal 136-144 [facility] Comment on above: Order Comment: Speci men Type: BLOOD SPECIMEN Ordering Facility: [facility] Address: [address] [place] [address] Performed By: #### 2 132-9, 35330-5, 2284-8, 2276-4 #### [facility] CLIA [id number] [address] [place] [address] [place] Urea nitrogen [Mass/Vol] 27 mg/dL High 7-21 [facility] Comment on above: Order Comment: Speci men Type: BLOOD SPECIMEN Ordering Facility: [facility] Address: [address] [place] [address] Performed By: #### 2 132-9, 00490-5, 2284-8, 6-4 #### [facility] CLIA [id number] [address] [place] [address] [place] LDH SerPl-cCncon 03-05-2024 LDH [Catalytic activity/Vol] 207 U/L Normal 135-214 [facility] Comment on above: Order Comment: Speci men Type: BLOOD SPECIMEN Ordering Facility: [facility] Address: [address] [place] [address] Performed By: #### 2 132-9, 47557-5, 2284-8, 6-4 #### [facility] CLIA [id number] [address] [place] [address] [place] CBC W Auto Differential pane l (Bld)on 02-02-2024 Basophils (Bld) [#/Vol] 10*3/uL Normal <0.11 [facility] Comment on above: Order Comment: Speci men Type: BLOOD SPECIMEN Ordering Facility: [facility] Address: [address] [place] [address] Performed By: #### 5 0190-8, 2132-03, 2284-02, 2275-10 #### [facility] CLIA [id number] [address] [place] [address] [place] Basophils/100 WBC (Bld) 0.2 % Normal [facility] Comment on above: Order Comment: Speci men Type: BLOOD SPECIMEN Ordering Facility: [facility] Address: [address] [place] [address] Performed By: #### 5 0190-8, 2132-03, 2284-02, 2275-10 #### [facility] CLIA [id number] [address] [place] [address] [place] Differential cell count method Nom (Bld) Auto Normal [facility] Comment on above: Order Comment: Speci men Type: BLOOD SPECIMEN Ordering Facility: [facility] Address: [address] [place] [address] Performed By: #### 5 0190-8, 2132-03, 2284-02, 2275-10 #### [facility] CLIA [id number] [address] [place] [address] [place] Eosinophils (Bld) [#/Vol] 0.05 10*3/uL Normal <0.46 [facility] Comment on above: Order Comment: Speci men Type: BLOOD SPECIMEN Ordering Facility: [facility] Address: [address] [place] [address] Performed By: #### 5 0190-8, 2132-03, 2284-02, 2275-10 #### [facility] CLIA [id number] [address] [place] [address] [place] Eosinophils/100 WBC (Bld) 0.9 % Normal [facility] Comment on above: Order Comment: Speci men Type: BLOOD SPECIMEN Ordering Facility: [facility] Address: [address] [place] [address] Performed By: #### 5 0190-8, 2132-03, 2284-02, 2275-10 #### [facility] CLIA [id number] [address] [place] [address] [place] Erythrocyte distribution width (RBC) [Ratio] 14.0 % Normal 11.5-15.0 [facility] Comment on above: Order Comment: Speci men Type: BLOOD SPECIMEN Ordering Facility: [facility] Address: [address] [place] [address] Performed By: #### 5 0190-8, 2132-03, 2284-02, 2275-10 #### [facility] CLIA [id number] [address] [place] [address] [place] Hematocrit (Bld) [Volume fraction] 32.6 % Low 36.0-46.0 [facility] Comment on above: Order Comment: Speci men Type: BLOOD SPECIMEN Ordering Facility: [facility] Address: [address] [place] [address] Performed By: #### 5 0190-8, 2132-03, 2284-02, 2275-10 #### [facility] CLIA [id number] [address] [place] [address] [place] Hemoglobin (Bld) [Mass/Vol] 10.3 g/dL Low 11.5-15.5 [facility] Comment on above: Order Comment: Speci men Type: BLOOD SPECIMEN Ordering Facility: [facility] Address: [address] [place] [address] Performed By: #### 5 0190-8, 2132-03, 2284-02, 2275-10 #### [facility] CLIA [id number] [address] [place] [address] [place] Immature granulocytes (Bld) [#/Vol] 10*3/uL Normal <0.10 [facility] Comment on above: Order Comment: Speci men Type: BLOOD SPECIMEN Ordering Facility: [facility] Address: [address] [place] [address] Performed By: #### 5 0190-8, 9, 2283-8, 2275-4 #### [facility] CLIA [id number] [address] [place] [address] [place] Immature granulocytes/100 WBC (Bld) 0.2 % Normal [facility] Comment on above: Order Comment: Speci men Type: BLOOD SPECIMEN Ordering Facility: [facility] Address: [address] [place] [address] Performed By: #### 5 0190-8, 9, 8, 4 #### [facility] CLIA [id number] [address] [place] [address] [place] Lymphocytes (Bld) [#/Vol] 2.34 10*3/uL Normal 1.00-4.00 [facility] Comment on above: Order Comment: Speci men Type: BLOOD SPECIMEN Ordering Facility: [facility] Address: [address] [place] [address] Performed By: #### 5 0190-8, 9, 8, 4 #### [facility] CLIA [id number] [address] [place] [address] [place] Lymphocytes/100 WBC (Bld) 42.2 % Normal [facility] Comment on above: Order Comment: Speci men Type: BLOOD SPECIMEN Ordering Facility: [facility] Address: [address] [place] [address] Performed By: #### 5 0190-8, 9, 8, 4 #### [facility] CLIA [id number] [address] [place] [address] [place] MCH (RBC) [Entitic mass] 31.3 pg Normal 26.0-34.0 [facility] Comment on above: Order Comment: Speci men Type: BLOOD SPECIMEN Ordering Facility: [facility] Address: [address] [place] [address] Performed By: #### 5 0190-8, 2131-9, 2283-8, 6-4 #### [facility] CLIA [id number] [address] [place] [address] [place] MCHC (RBC) [Mass/Vol] 31.6 g/dL Normal 30.5-36.0 [facility] Comment on above: Order Comment: Speci men Type: BLOOD SPECIMEN Ordering Facility: [facility] Address: [address] [place] [address] Performed By: #### 5 0190-8, 9, 2283-8, 2275-4 #### [facility] CLIA [id number] [address] [place] [address] [place] MCV (RBC) [Entitic vol] 99.1 fL Normal 80.0-100.0 [facility] Comment on above: Order Comment: Speci men Type: BLOOD SPECIMEN Ordering Facility: [facility] Address: [address] [place] [address] Performed By: #### 5 0190-8, 9, 2283-8, 2275-4 #### [facility] CLIA [id number] [address] [place] [address] [place] Monocytes (Bld) [#/Vol] 0.23 10*3/uL Normal <0.87 [facility] Comment on above: Order Comment: Speci men Type: BLOOD SPECIMEN Ordering Facility: [facility] Address: [address] [place] [address] Performed By: #### 5 0190-8, 9, 4-8, 6-4 #### [facility] CLIA [id number] [address] [id number] [address] [place] Monocytes/100 WBC (Bld) 4.2 % Normal [facility] Comment on above: Order Comment: Speci men Type: BLOOD SPECIMEN Ordering Facility: [facility] Address: [address] [place] [address] Performed By: #### 5 0190-8, 2-9, 2284-8, 2276-4 #### [facility] CLIA [id number] [address] [place] [address] [place] Neutrophils (Bld) [#/Vol] 2.90 10*3/uL Normal 1.45-7.50 [facility] Comment on above: Order Comment: Speci men Type: BLOOD SPECIMEN Ordering Facility: [facility] Address: [address] [place] [address] Performed By: #### 5 0190-8, 2131-9, 4-8, 6-4 #### [facility] CLIA [id number] [address] [place] [address] [place] Neutrophils/100 WBC (Bld) 52.3 % Normal [facility] Comment on above: Order Comment: Speci men Type: BLOOD SPECIMEN Ordering Facility: [facility] Address: [address] [place] [address] Performed By: #### 5 0190-8, 2-9, 4-8, 2276-4 #### [facility] CLIA [id number] [address] [place] [address] [place] Nucleated RBC (Bld) [#/Vol] 10*3/uL Normal <0.01 [facility] Comment on above: Order Comment: Speci men Type: BLOOD SPECIMEN Ordering Facility: [facility] Address: [address] [place] [address] Performed By: #### 5 0190-8, 2-9, 2284-8, 2276-4 #### [facility] CLIA [id number] [address] [place], [place] [address] [place] Nucleated RBC/100 WBC (Bld) [Ratio] 0.0 /100 WBC Normal [facility] Comment on above: Order Comment: Speci men Type: BLOOD SPECIMEN Ordering Facility: [facility] Address: [address] [place] [address] Performed By: #### 5 0190-8, 2131-9, 2283-8, 6-4 #### [facility] CLIA [id number] [address] [place] [address] [place] Platelet mean volume (Bld) [Entitic vol] 9.1 fL Normal 9.0-12.7 [facility] Comment on above: Order Comment: Speci men Type: BLOOD SPECIMEN Ordering Facility: [facility] Address: [address] [place] [address] Performed By: #### 5 0190-8, 2131-9, 2283-8, 2275-4 #### [facility] CLIA [id number] [address] [place] [address] [place] Platelets (Bld) [#/Vol] 148 10*3/uL Low 150-400 [facility] Comment on above: Order Comment: Speci men Type: BLOOD SPECIMEN Ordering Facility: [facility] Address: [address] [place] [address] Performed By: #### 5 0190-8, 2131-9, 2283-8, 6-4 #### [facility] CLIA [id number] [address] [place] [address] [place] RBC (Bld) [#/Vol] 3.29 10*6/uL Low 3.90-5.20 [place] Comment on above: Order Comment: Speci men Type: BLOOD SPECIMEN Ordering Facility: [facility] Address: [address] [place] [address] Performed By: #### 5 0190-8, 2131-9, 2283-8, 6-4 #### [facility] CLIA [id number] [address] [place] [address] [place] WBC (Bld) [#/Vol] 5.54 10*3/uL Normal 3.70-11.00 [place] Comment on above: Order Comment: Speci men Type: BLOOD SPECIMEN Ordering Facility: [facility] Address: [address] [place] [address] Performed By: #### 5 0190-8, 2132-9, 2284-8, 2276-4 #### [facility] CLIA [id number] [address] [place] [address] [place] CNOVSPon 02-02-2024 CNOVSP Visit (SP) Office ([place]AS[place]) ANDREI FISH ([id number]) 1950 F Date Time Provider Department 02/02/24 1:30 PM RINKU RAMSEY During your visit today, we recorded the following information about you: Temperature Pulse Respiration Blood pressure 97.7 degrees 76/minute 16/minute 142/68 Weight Height 87.1 kg 1.588 m Rinku Ramsey MD 02/03/2024 12:34 PM Signed NAME: Andrei Fish [facility] NO.: [id number] DATE OF SERVICE: February 02, 2024 (Roxy) Some elements in this clinic note that are critical to medical decision making have been carefully reviewed and included from a prior clinic note dated: November 24, 2023 (Roxy) Additional Clinicians involved in Paulalicia Fish's care: Dr. Deluna, Dr. Susanna Graf [...] 6 weeks for labs and follow up - HPI: CASE HISTORY: Reverse Chronological Order 03/29/2023 [...] 2018 - Rituxan X 4 Updated Visit, February [...] look good, BP is good. She notes s (more content not included)... Normal [facility] Comprehensive metabolic 2000 panelon 02-02-2024 Albumin [Mass/Vol] 3.8 g/dL Low 3.9-4.9 [facility] Comment on above: Order Comment: Speci men Type: BLOOD SPECIMEN Ordering Facility: [facility] Address: [address] [place] [address] Performed By: #### 5 0190-8, 2131-9, 2283-8, 2275-4 #### [facility] CLIA [id number] [address] [place] [address] [place] ALP [Catalytic activity/Vol] 71 U/L Normal 34-123 [facility] Comment on above: Order Comment: Speci men Type: BLOOD SPECIMEN Ordering Facility: [facility] Address: [address] [place] [address] Performed By: #### 5 0190-8, 9, 8, 2275-4 #### [facility] CLIA [id number] [address] [place] [address] [place] ALT [Catalytic activity/Vol] 14 U/L Normal 7-38 [facility] Comment on above: Order Comment: Speci men Type: BLOOD SPECIMEN Ordering Facility: [facility] Address: [address] [place] [address] Performed By: #### 5 0190-8, 9, 8, 2275-4 #### [facility] CLIA [id number] [address] [place] [address] [place] Anion gap [Moles/Vol] 9 mmol/L Normal 8-15 [facility] Comment on above: Order Comment: Speci men Type: BLOOD SPECIMEN Ordering Facility: [facility] Address: [address] [place] [address] Performed By: #### 5 0190-8, 2131-9, 2283-8, 2275-4 #### [facility] CLIA [id number] [address] [place] [address] [place] AST [Catalytic activity/Vol] 21 U/L Normal 13-35 [facility] Comment on above: Order Comment: Speci men Type: BLOOD SPECIMEN Ordering Facility: [facility] Address: [address] [place] [address] Performed By: #### 5 0190-8, 2131-9, 2283-8, 2275-4 #### [facility] CLIA [id number] [address] [place] [address] [place] Bilirubin [Mass/Vol] 0.3 mg/dL Normal 0.2-1.3 [facility] Comment on above: Order Comment: Speci men Type: BLOOD SPECIMEN Ordering Facility: [facility] Address: [address] [place] [address] Performed By: #### 5 0190-8, 9, 2284-02, 2275-4 #### [facility] CLIA [id number] [address] [place] [address] [place] Calcium [Mass/Vol] 9.5 mg/dL Normal 8.5-10.2 [facility] Comment on above: Order Comment: Speci men Type: BLOOD SPECIMEN Ordering Facility: [facility] Address: [address] [place] [address] Performed By: #### 5 0190-8, 9, 8, 2275-4 #### [facility] CLIA [id number] [address] [place] [address] [place] Chloride [Moles/Vol] 110 mmol/L High 98-107 [facility] Comment on above: Order Comment: Speci men Type: BLOOD SPECIMEN Ordering Facility: [facility] Address: [address] [place] [address] Performed By: #### 5 0190-8, 2131-9, 2283-8, 2275-4 #### [facility] CLIA [id number] [address] [place] [address] [place] CO2 [Moles/Vol] 23 mmol/L Normal 22-30 [facility] Comment on above: Order Comment: Speci men Type: BLOOD SPECIMEN Ordering Facility: [facility] Address: [address] [place] [address] Performed By: #### 5 0190-8, 2131-9, 8, 2275-4 #### [facility] CLIA [id number] [address] [place] [address] [place] Creatinine [Mass/Vol] 1.14 mg/dL High 0.58-0.96 [facility] Comment on above: Order Comment: Speci men Type: BLOOD SPECIMEN Ordering Facility: [facility] Address: [address] [place] [address] Performed By: #### 5 0190-8, 9, 2284-02, 4 #### [facility] CLIA [id number] [address] [place] [address] [place] Creatinine and Glomerular filtration rate.predicted panel (S/P/Bld) 51 mL/min/1.73m??? Low >=60 [facility] Comment on above: Order Comment: Speci men Type: BLOOD SPECIMEN Ordering Facility: [facility] Address: [address] [place] [address] Result Comment: Miryam mated Glomerular Filtration Rate [...] accurately reflect actual GFR. Performed By: #### 5 0190-8, 2131-9, 2283-8, 2275-4 #### [facility] CLIA [id number] [address] [id number] [address] [place] Glucose [Mass/Vol] 140 mg/dL High 74-99 [facility] Comment on above: Order Comment: Specbora tapia Type: BLOOD SPECIMEN Ordering Facility: [facility] Address: [address] [place] [address] Result Comment: [place] [employer] (ADA) provides guidance for cutoff [...] Standards of Medical Care in Diabetes 2016, [place] [employer] Association. Diabetes Care. 2016.39(Suppl 1). Performed By: #### 5 0190-8, 9, 2284-02, 2275-4 #### [facility] CLIA [id number] [address] [place] [address] [place] Potassium [Moles/Vol] 4.8 mmol/L Normal 3.7-5.1 [facility] Comment on above: Order Comment: Fabricio tapia Type: BLOOD SPECIMEN Ordering Facility: [facility] Address: [address] [place] [address] Performed By: #### 5 0190-8, 2132-03, 2284-02, 4 #### [facility] CLIA [id number] [address] [place] [address] [place] Protein [Mass/Vol] 7.3 g/dL Normal 6.3-8.0 [facility] Comment on above: Order Comment: Fabricio tapia Type: BLOOD SPECIMEN Ordering Facility: [facility] Address: [address] [place] [address] Performed By: #### 5 0190-8, 9, 2284-02, 2275-4 #### [facility] CLIA [id number] [address] [place] [address] [place] Sodium [Moles/Vol] 142 mmol/L Normal 136-144 [facility] Comment on above: Order Comment: Speci men Type: BLOOD SPECIMEN Ordering Facility: [facility] Address: [address] [place] [address] Performed By: #### 5 0190-8, 2132-9, 2283-8, 6-4 #### [facility] CLIA [id number] [address] [place] [address] [place] Urea nitrogen [Mass/Vol] 35 mg/dL High 7-21 [facility] Comment on above: Order Comment: Speci men Type: BLOOD SPECIMEN Ordering Facility: [facility] Address: [address] [place] [address] Performed By: #### 5 0190-8, 2131-9, 2283-8, 2275-4 #### [facility] CLIA [id number] [address] [place] [address] [place] Ferritin SerPl-mCncon 2023 Ferritin [Mass/Vol] 76.8 ng/mL Normal 14.7-205.1 [place] Comment on above: Order Comment: Speci men Type: BLOOD SPECIMEN Ordering Facility: [facility] Address: [address] [place] [address] Performed By: #### 2 132-9, 63226-3, 4-8, 6-4 #### [facility] CLIA [id number] [address] [place], [place] [address] [place] Folate SerPl-mCncon 02-02-20 Folate [Mass/Vol] 9.3 ng/mL Normal >4.7 [facility] Comment on above: Order Comment: Speci men Type: BLOOD SPECIMEN Ordering Facility: [facility] Address: [address] [place] [address] Performed By: #### 2 132-9, 01864-7, 2284-8, 2276-4 #### [facility] CLIA [id number] [address] [place] [address] [place] Iron and Iron binding capaci ty panelon 02-02-2024 Iron [Mass/Vol] 56 ug/dL Normal 41-186 [facility] Comment on above: Order Comment: Speci men Type: BLOOD SPECIMEN Ordering Facility: [facility] Address: [address] [place] [address] Performed By: #### 2 132-9, 69142-3, 2284-8, 2276-4 #### [facility] CLIA [id number] [address] [place] [address] [place] Iron binding capacity [Mass/Vol] 363 ug/dL Normal 232-386 [facility] Comment on above: Order Comment: Speci men Type: BLOOD SPECIMEN Ordering Facility: [facility] Address: [address] [place] [address] Performed By: #### 2 132-9, 57447-6, 2284-8, 2276-4 #### [facility] CLIA [id number] [address] [place] [address] [place] Iron/TIBC [Molar ratio] 15.4 % Normal 15.0-57.0 [facility] Comment on above: Order Comment: Speci men Type: BLOOD SPECIMEN Ordering Facility: [facility] Address: [address] [place] [address] Performed By: #### 2 132-9, 62253-7, 2284-8, 2276-4 #### [facility] CLIA [id number] [address] [place] [address] [place] Vit [facility] 024 Cobalamin (Vitamin B12) [Mass/Vol] 471 pg/mL Normal 232-1245 [facility] Comment on above: Order Comment: Speci men Type: BLOOD SPECIMEN Ordering Facility: [facility] Address: [address] [place] [address] Performed By: #### 2 132-9, 13729-8, 2284-8, 2276-4 #### [facility] CLIA [id number] [address] [place] [address] [place] [address] [place] Surgical pathology studyon 0 12-18-2023 Surgical pathology study Pathology report.total SEE COMMENT Surgical Pathology Case: [id number] Authorizing Provider: Susanna Graf MD Collected: 12/18/2023 1023 Ordering Location: [facility] OR Received: 12/18/2023 1254 Pathologist: Abebe Jo [...] or group listed as making the Final Interpretation/Diagnos is certifies that they have reviewed this case. [...] following decalcification. 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] CBC W Auto Differential pane l (Bld)on 12-15-2023 Basophils (Bld) [#/Vol] 10*3/uL Normal <0.11 [facility] Comment on above: Order Comment: Speci men Type: BLOOD SPECIMEN Ordering Facility: [facility] Address: [address] [place] [address] Performed By: #### 5 0190-8, 9, 8, 4 #### [facility] CLIA [id number] [address] [place] [address] [place] Basophils/100 WBC (Bld) 0.2 % Normal [facility] Comment on above: Order Comment: Speci men Type: BLOOD SPECIMEN Ordering Facility: [facility] Address: [address] [place] [address] Performed By: #### 5 0190-8, 9, 8, 4 #### [facility] CLIA [id number] [address] [place] [address] [place] Differential cell count method Nom (Bld) Auto Normal [facility] Comment on above: Order Comment: Speci men Type: BLOOD SPECIMEN Ordering Facility: [facility] Address: [address] [place] [address] Performed By: #### 5 0190-8, 9, 8, 4 #### [facility] CLIA [id number] [address] [place] [address] [place] Eosinophils (Bld) [#/Vol] 0.04 10*3/uL Normal <0.46 [facility] Comment on above: Order Comment: Speci men Type: BLOOD SPECIMEN Ordering Facility: [facility] Address: [address] [place] [address] Performed By: #### 5 0190-8, 9, 8, 2275-10 #### [facility] CLIA [id number] [address] [place] [address] [place] Eosinophils/100 WBC (Bld) 0.8 % Normal [facility] Comment on above: Order Comment: Speci men Type: BLOOD SPECIMEN Ordering Facility: [facility] Address: [address] [place] [address] Performed By: #### 5 0190-8, 9, 8, 2275-4 #### [facility] CLIA [id number] [address] [place] [address] [place] Erythrocyte distribution width (RBC) [Ratio] 14.3 % Normal 11.5-15.0 [facility] Comment on above: Order Comment: Speci men Type: BLOOD SPECIMEN Ordering Facility: [facility] Address: [address] [place] [address] Performed By: #### 5 0190-8, 9, 2284-02, 4 #### [facility] CLIA [id number] [address] [place] [address] [place] Hematocrit (Bld) [Volume fraction] 32.8 % Low 36.0-46.0 [facility] Comment on above: Order Comment: Speci men Type: BLOOD SPECIMEN Ordering Facility: [facility] Address: [address] [place] [address] Performed By: #### 5 0190-8, 2131-9, 2284-02, 2275-4 #### [facility] CLIA [id number] [address] [place] [address] [place] Hemoglobin (Bld) [Mass/Vol] 10.2 g/dL Low 11.5-15.5 [facility] Comment on above: Order Comment: Speci men Type: BLOOD SPECIMEN Ordering Facility: [facility] Address: [address] [place] [address] Performed By: #### 5 0190-8, 2131-9, 8, 2275-4 #### [facility] CLIA [id number] [address] [place] [address] [place] Immature granulocytes (Bld) [#/Vol] 10*3/uL Normal <0.10 [facility] Comment on above: Order Comment: Speci men Type: BLOOD SPECIMEN Ordering Facility: [facility] Address: [address] [place] [address] Performed By: #### 5 0190-8, 9, 8, 4 #### [facility] CLIA [id number] [address] [place] [address] [place] Immature granulocytes/100 WBC (Bld) 0.4 % Normal [facility] Comment on above: Order Comment: Speci men Type: BLOOD SPECIMEN Ordering Facility: [facility] Address: [address] [place] [address] Performed By: #### 5 0190-8, 9, 8, 4 #### [facility] CLIA [id number] [address] [place] [address] [place] Lymphocytes (Bld) [#/Vol] 2.22 10*3/uL Normal 1.00-4.00 [facility] Comment on above: Order Comment: Speci men Type: BLOOD SPECIMEN Ordering Facility: [facility] Address: [address] [place] [address] Performed By: #### 5 0190-8, 2132-03, 2284-02, 2275-10 #### [facility] CLIA [id number] [address] [place] [address] [place] Lymphocytes/100 WBC (Bld) 47.0 % Normal [facility] Comment on above: Order Comment: Speci men Type: BLOOD SPECIMEN Ordering Facility: [facility] Address: [address] [place] [address] Performed By: #### 5 0190-8, 9, 2284-02, 4 #### [facility] CLIA [id number] [address] [place] [address] [place] MCH (RBC) [Entitic mass] 31.8 pg Normal 26.0-34.0 [facility] Comment on above: Order Comment: Speci men Type: BLOOD SPECIMEN Ordering Facility: [facility] Address: [address] [place] [address] Performed By: #### 5 0190-8, 2132-03, 2284-02, 2275-10 #### [facility] CLIA [id number] [address] [place] [address] [place] MCHC (RBC) [Mass/Vol] 31.1 g/dL Normal 30.5-36.0 [facility] Comment on above: Order Comment: Speci men Type: BLOOD SPECIMEN Ordering Facility: [facility] Address: [address] [place] [address] Performed By: #### 5 0190-8, 2132-03, 2284-02, 2275-10 #### [facility] CLIA [id number] [address] [place] [address] [place] MCV (RBC) [Entitic vol] 102.2 fL High 80.0-100.0 [facility] Comment on above: Order Comment: Speci men Type: BLOOD SPECIMEN Ordering Facility: [facility] Address: [address] [place] [address] Performed By: #### 5 0190-8, 2132-03, 2284-02, 2275-10 #### [facility] CLIA [id number] [address] [place] [address] [place] Monocytes (Bld) [#/Vol] 0.22 10*3/uL Normal <0.87 [facility] Comment on above: Order Comment: Speci men Type: BLOOD SPECIMEN Ordering Facility: [facility] Address: [address] [place] [address] Performed By: #### 5 0190-8, 2132-03, 2284-02, 2275-10 #### [facility] CLIA [id number] [address] [place] [address] [place] Monocytes/100 WBC (Bld) 4.7 % Normal [facility] Comment on above: Order Comment: Speci men Type: BLOOD SPECIMEN Ordering Facility: [facility] Address: [address] [place] [address] Performed By: #### 5 0190-8, 9, 8, 4 #### [facility] CLIA [id number] [address] [place] [address] [place] Neutrophils (Bld) [#/Vol] 2.21 10*3/uL Normal 1.45-7.50 [facility] Comment on above: Order Comment: Speci men Type: BLOOD SPECIMEN Ordering Facility: [facility] Address: [address] [place] [address] Performed By: #### 5 0190-8, 2132-03, 2284-02, 2275-10 #### [facility] CLIA [id number] [address] [place] [address] [place] Neutrophils/100 WBC (Bld) 46.9 % Normal [facility] Comment on above: Order Comment: Speci men Type: BLOOD SPECIMEN Ordering Facility: [facility] Address: [address] [place] [address] Performed By: #### 5 0190-8, 2132-03, 2284-02, 2275-10 #### [facility] CLIA [id number] [address] [place] [address] [place] Nucleated RBC (Bld) [#/Vol] 10*3/uL Normal <0.01 [facility] Comment on above: Order Comment: Speci men Type: BLOOD SPECIMEN Ordering Facility: [facility] Address: [address] [place] [address] Performed By: #### 5 0190-8, 9, 2284-02, 4 #### [facility] CLIA [id number] [address] [place] [address] [place] Nucleated RBC/100 WBC (Bld) [Ratio] 0.0 /100 WBC Normal [facility] Comment on above: Order Comment: Speci men Type: BLOOD SPECIMEN Ordering Facility: [facility] Address: [address] [place] [address] Performed By: #### 5 0190-8, 2131-9, 2283-8, 6-4 #### [facility] CLIA [id number] [address] [place] [address] [place] Platelet mean volume (Bld) [Entitic vol] 9.2 fL Normal 9.0-12.7 [facility] Comment on above: Order Comment: Speci men Type: BLOOD SPECIMEN Ordering Facility: [facility] Address: [address] [place] [address] Performed By: #### 5 0190-8, 2131-9, 2283-8, 2275-4 #### [facility] CLIA [id number] [address] [place] [address] [place] Platelets (Bld) [#/Vol] 140 10*3/uL Low 150-400 [facility] Comment on above: Order Comment: Speci men Type: BLOOD SPECIMEN Ordering Facility: [facility] Address: [address] [place] [address] Performed By: #### 5 0190-8, 2131-9, 2283-8, 2275-4 #### [facility] CLIA [id number] [address] [place] [address] [place] RBC (Bld) [#/Vol] 3.21 10*6/uL Low 3.90-5.20 [place] Comment on above: Order Comment: Speci men Type: BLOOD SPECIMEN Ordering Facility: [facility] Address: [address] [place] [address] Performed By: #### 5 0190-8, 2131-9, 2283-8, 6-4 #### [facility] CLIA [id number] [address] [place] [address] [place] WBC (Bld) [#/Vol] 4.72 10*3/uL Normal 3.70-11.00 [place] Comment on above: Order Comment: Speci men Type: BLOOD SPECIMEN Ordering Facility: [facility] Address: [address] [place] [address] Performed By: #### 5 0190-8, 2132-9, 2284-8, 2276-4 #### [facility] CLIA [id number] [address] [place] [address] [place] CNNURSEon 12-15-2023 CNNURSE Nurse Visit (HEMASA) ANDREI FISH ([id number]) 1950 F Date Time Provider Department 12/15/23 11:15 AM [facility] NURSE CLARENCE GAONA HEMLAKSHMI During your visit today, we recorded the following information about you: Marely Alvarez MA 12/15/2023 11:43 AM Signed Patient identified by 2 identifiers. EKG performed as ordered. Marely Alvarez MA Allergies As of Date: 12/15/2023 Noted Allergy Reaction TETNUS (TETANUS VACCINES AND TOXO*03/03/2016 16 - Unknown VANCOMYCIN 03/03/2016 16 - Unknown Comments: Burning sensation DIPHTHERIA,PERTUSSIS (ACELLULAR),* 3 2 - Rash Date Reviewed: 11/24/2023 Reviewed by: Emily Ponce MA - Fully Assessed Primary Visit Diagnosis:Preoperative examination [Z01.818] Order(s):ECG COMPLETE [ECG01] Order #: [id number]. #:[id number] Prescriptions as of 12/15/2023 - pilocarpine (SALAGEN) 5 mg tablet Take 1 tablet by mouth three times a day. - losartan (COZAAR) 25 mg tablet take 2 tablets by mouth every day at bedtime - ergocalciferol 50,000 unit capsule (VITAMIN D2, DRISDOL) Take 1 capsule by mouth one time a week. - alendronate (FOSAMAX) 70 mg tablet PLEASE SEE ATTACHED FOR DETAILED DIRECTIONS - fostamatinib (TAVALISSE) 100 mg tablet Take 1 tablet by mouth two times a day. - hydroCHLOROthiazide 25 mg tablet TAKE 1 TABLET BY MOUTH EVERY DAY - spironolactone (ALDACTONE) 25 mg tablet Take 25 mg by mouth once daily. - benzonatate (TESSALON PERLE) 100 mg capsule TAKE 1 CAPSULE BY MOUTH EVERY 6 HOURS NEEDED FOR COUGH. - cholecalciferol, vitamin D3, (VITAMIN D3 ORAL) Take by mouth. Problem List As Of Date 12/15/2023 Noted Resolved Thrombocytopenia (HCC) [D69.6] 03/03/2016 Abnormal weight loss [R63.4] 03/03/2016 Lupus (HCC) [M32.9] 03/03/2016 Acute ITP (HCC) [D69.3] 05/26/2016 Family history of breast cancer [Z80.3] 04/13/2017 Chronic ITP (idiopathic thrombocytopenia) (HCC)*09/08/2017 Nocturnal leg cramps [G47.62] 10/05/2017 Obstructive sleep apnea syndrome [G47.33] 05/13/2021 Essential hypertension [I10] 05/13/2021 Visit Notes: >> Marely Alvarez MA MonDec 15, 2023 11:40 AM Status: Signed Patient identified by 2 identifiers. EKG performed as ordered. Marely Alvarez MA Encounter Status:Closed by MARELY ALVAREZ on 12/15/23 Normal [facility] Comprehensive metabolic 2000 panelon 12-15-2023 Albumin [Mass/Vol] 4.1 g/dL Normal 3.9-4.9 [facility] Comment on above: Order Comment: Speci men Type: BLOOD SPECIMEN Ordering Facility: [facility] Address: [address] [place] [address] Performed By: #### 2 132-9, 58578-2, 2284-8, 2276-4 #### [facility] CLIA [id number] [address] [place] [address] [place] ALP [Catalytic activity/Vol] 62 U/L Normal 34-123 [facility] Comment on above: Order Comment: Speci men Type: BLOOD SPECIMEN Ordering Facility: [facility] Address: [address] [place] [address] Performed By: #### 2 132-9, 06067-0, 2284-8, 2276-4 #### [facility] CLIA [id number] [address] [place] [address] [place] ALT [Catalytic activity/Vol] 14 U/L Normal 7-38 [facility] Comment on above: Order Comment: Speci men Type: BLOOD SPECIMEN Ordering Facility: [facility] Address: [address] [place] [address] Performed By: #### 2 132-9, 49666-7, 2284-8, 2276-4 #### [facility] CLIA [id number] [address] [place] [address] [place] Anion gap [Moles/Vol] 7 mmol/L Low 8-15 [facility] Comment on above: Order Comment: Speci men Type: BLOOD SPECIMEN Ordering Facility: [facility] Address: [address] [place] [address] Performed By: #### 2 132-9, 91045-9, 2284-8, 2276-4 #### [facility] CLIA [id number] [address] [place] [address] [place] AST [Catalytic activity/Vol] 21 U/L Normal 13-35 [facility] Comment on above: Order Comment: Speci men Type: BLOOD SPECIMEN Ordering Facility: [facility] Address: [address] [place] [address] Performed By: #### 2 132-9, 95725-5, 2284-8, 2276-4 #### [facility] CLIA [id number] [address] [place] [address] [place] Bilirubin [Mass/Vol] 0.4 mg/dL Normal 0.2-1.3 [facility] Comment on above: Order Comment: Speci men Type: BLOOD SPECIMEN Ordering Facility: [facility] Address: [address] [place] [address] Performed By: #### 2 132-9, 35262-9, 2284-8, 2276-4 #### [facility] CLIA [id number] [address] [place] [address] [place] Calcium [Mass/Vol] 9.9 mg/dL Normal 8.5-10.2 [facility] Comment on above: Order Comment: Speci men Type: BLOOD SPECIMEN Ordering Facility: [facility] Address: [address] [place] [address] Performed By: #### 2 132-9, 94921-5, 2284-8, 6-4 #### [facility] CLIA [id number] [address] [place] [address] [place] Chloride [Moles/Vol] 111 mmol/L High 98-107 [facility] Comment on above: Order Comment: Speci men Type: BLOOD SPECIMEN Ordering Facility: [facility] Address: [address] [place] [address] Performed By: #### 2 132-9, 56037-5, 2284-8, 6-4 #### [facility] CLIA [id number] [address] [place] [address] [place] CO2 [Moles/Vol] 25 mmol/L Normal 22-30 [facility] Comment on above: Order Comment: Speci men Type: BLOOD SPECIMEN Ordering Facility: [facility] Address: [address] [place] [address] Performed By: #### 2 132-9, 41466-5, 2284-8, 2276-4 #### [facility] CLIA [id number] [address] [place] [address] [place] Creatinine [Mass/Vol] 1.23 mg/dL High 0.58-0.96 [facility] Comment on above: Order Comment: Fabricio tapia Type: BLOOD SPECIMEN Ordering Facility: [facility] Address: [address] [place] [address] Performed By: #### 2 132-9, 47169-1, 2284-8, 2276-4 #### [facility] CLIA [id number] [address] [place] [address] [facility] Creatinine and Glomerular filtration rate.predicted panel (S/P/Bld) 46 mL/min/1.73m??? Low >=60 [facility] Comment on above: Order Comment: Fabricio tapia Type: BLOOD SPECIMEN Ordering Facility: [facility] Address: [address] [place] [address] Result Comment: Miryam mated Glomerular Filtration Rate [...] reflect actual GFR. Performed By: #### 2 132-9, 96038-8, 2284-8, 2276-4 #### [facility] CLIA [id number] [address] [place] [address] [place] Glucose [Mass/Vol] 118 mg/dL High 74-99 [facility] Comment on above: Order Comment: Fabricio tapia Type: BLOOD SPECIMEN Ordering Facility: [facility] Address: [address] [place] [address] Result Comment: The [place] Diabetes Association (ADA) provides guidance for cutoff [...] Standards of Medical Care in Diabetes 2016, [place] Diabetes Association. Diabetes Care. 2016.39(Suppl 1). Performed By: #### 2 132-9, 18328-7, 2284-8, 2276-4 #### [facility] CLIA [id number] [address] [place] [address] [place] Potassium [Moles/Vol] 5.1 mmol/L Normal 3.7-5.1 [facility] Comment on above: Order Comment: Fabricio tapia Type: BLOOD SPECIMEN Ordering Facility: [facility] Address: [address] [place] [address] Performed By: #### 2 132-9, 34125-8, 2284-8, 2276-4 #### [facility] CLIA [id number] [address] [place] [address] [place] Protein [Mass/Vol] 7.9 g/dL Normal 6.3-8.0 [facility] Comment on above: Order Comment: Fabricio tapia Type: BLOOD SPECIMEN Ordering Facility: [facility] Address: [address] [place] [address] Performed By: #### 2 132-9, 57798-9, 2284-8, 2276-4 #### [facility] CLIA [id number] [address] [place] [address] [place] Sodium [Moles/Vol] 143 mmol/L Normal 136-144 [facility] Comment on above: Order Comment: Virgilioi men Type: BLOOD SPECIMEN Ordering Facility: [facility] Address: [address] [place] [address] Performed By: #### 2 132-9, 90615-7, 2284-8, 2276-4 #### [facility] CLIA [id number] [address] [place] [address] [place] Urea nitrogen [Mass/Vol] 34 mg/dL High 7-21 [facility] Comment on above: Order Comment: Fabricio tapia Type: BLOOD SPECIMEN Ordering Facility: [facility] Address: [address] [place] [address] Performed By: #### 2 132-9, 90036-9, 4-8, 6-4 #### [facility] CLIA [id number] [address] [place] [address] [place] PT panel Coag (PPP)on 2023 INR Coag (PPP) [Relative time] 1.0 {INR} Normal 0.9-1.3 [facility] Comment on above: Order Comment: Fabricio tapia Type: BLOOD SPECIMEN Ordering Facility: [facility] Address: [address] [place] [address] Result Comment: Jennifer min K Antagonist (VKA) Therapeutic Range: INR 2 to 3 (Target INR of 2.5) Note: For patients treated with VKA drugs, such as warfarin, the [place] [employer] 2012 Guideline recommends a therapeutic INR range of 2 to 3 (target INR of 2.5). This recommendation includes high-risk patients with antiphospholipid syndrome with previous arterial or venous thromboembolism, current-generation mechanical or bioprosthetic aortic heart valve replacement. Note: Patients with mechanical aortic valve replacement and additional risk factors for thromboembolic events (atrial fibrillation, previous thromboembolism, LV dysfunction, hypercoagulable conditions) or an older generation mechanical AVR (i.e., ball in-Cage) or any mechanical MVR should have a INR therapeutic range of 2.5 to 3.5 (target INR of 3). Epifanio SHOEMAKER, et al. Chest 2012, 141:7S-47S Jayshree RA, et al. JACC 2017, 70: 252-289 Performed By: #### 5 0190-8, 2132-9, 4-8, 6-4 #### [facility] CLIA [id number] [address] [place] [address] [place] PT Coag (PPP) [Time] 10.8 s Normal 9.7-13.0 [facility] Comment on above: Order Comment: Speci men Type: BLOOD SPECIMEN Ordering Facility: [facility] Address: [address] [place] [address] Performed By: #### 5 0190-8, 9, 8, 4 #### [facility] CLIA [id number] [address] [place] [address] [place] TYPE + SCREENon 12-15-2023 ABO A Normal [facility] Comment on above: Order Comment: Speci men Type: BLOOD SPECIMEN Ordering Facility: [facility] Address: [address] [place] [address] Performed By: #### 5 0190-8, 9, 2284-02, 2275-10 #### [facility] CLIA [id number] [address] [place] [address] [place] HISTORICAL AB SCR STATUS Negative Normal [facility] Comment on above: Order Comment: Speci men Type: BLOOD SPECIMEN Ordering Facility: [facility] Address: [address] [place] [address] Performed By: #### 5 0190-8, 9, 2284-02, 2275-10 #### [facility] CLIA [id number] [address] [place] [address] [place] Rh Nom (Bld) Positive Normal [facility] Comment on above: Order Comment: Speci men Type: BLOOD SPECIMEN Ordering Facility: [facility] Address: [address] [place] [address] Performed By: #### 5 0190-8, 9, 2284-02, 4 #### [facility] CLIA [id number] [address] [place] [address] [place] TYPE AND SCREEN EXPIRATION 12/18/2023 23:59 Normal [facility] Comment on above: Order Comment: Speci men Type: BLOOD SPECIMEN Ordering Facility: [facility] Address: [address] [place] [address] Performed By: #### 5 0190-8, 2131-9, 2283-8, 2275-4 #### [facility] CLIA [id number] [address] [place] [address] [place] aPTT PPPon 12-15-2023 aPTT Coag (PPP) [Time] 28.8 s Normal 23.0-32.4 [facility] Comment on above: Order Comment: Speci men Type: BLOOD SPECIMEN Ordering Facility: [facility] Address: [address] [place] [address] Result Comment: Froz en Plasma Aliquot Performed By: #### 5 0190-8, 2131-9, 2283-8, 2275-4 #### [facility] CLIA [id number] [address] [place] [address] OF [place] CNPVilma 11-28-2023 CNPN Telephone (HEMASA) ANDREI FISH ([id number]) 1950 F Date Time Provider Department 11/28/23 LINDA BOURGEOIS During your visit today, we recorded the following information about you: Linda Bourgeois RN 11/28/2023 11:[address] Graf ( ENT) is requesting to speak w/ you regarding Andrei. Please call her @ [phone]. Thanks, RAJ Meléndez Vivek, MD 11/28/2023 2:35 PM Signed Called thanks Allergies As of Date: 11/28/2023 Noted Allergy Reaction TETNUS (TETANUS VACCINES AND TOXO*03/03/2016 16 - Unknown VANCOMYCIN 03/03/2016 16 - Unknown Comments: Burning sensation DIPHTHERIA,PERTUSSIS (ACELLULAR),* 3 2 - Rash Date Reviewed: 11/24/2023 Reviewed by: Emily Ponce MA - Fully Assessed Reason for Visit: Call Request [Other] Prescriptions as of 11/28/2023 - pilocarpine (SALAGEN) 5 mg tablet Take 1 tablet by mouth three times a day. - losartan (COZAAR) 25 mg tablet take 2 tablets by mouth every day at bedtime - ergocalciferol 50,000 unit capsule (VITAMIN D2, DRISDOL) Take 1 capsule by mouth one time a week. - alendronate (FOSAMAX) 70 mg tablet PLEASE SEE ATTACHED FOR DETAILED DIRECTIONS - fostamatinib (TAVALISSE) 100 mg tablet Take 1 tablet by mouth two times a day. - hydroCHLOROthiazide 25 mg tablet TAKE 1 TABLET BY MOUTH EVERY DAY - spironolactone (ALDACTONE) 25 mg tablet Take 25 mg by mouth once daily. - benzonatate (TESSALON PERLE) 100 mg capsule TAKE 1 CAPSULE BY MOUTH EVERY 6 HOURS NEEDED FOR COUGH. - cholecalciferol, vitamin D3, (VITAMIN D3 ORAL) Take by mouth. Problem List As Of Date 11/28/2023 Noted Resolved Thrombocytopenia (HCC) [D69.6] 03/03/2016 Abnormal weight loss [R63.4] 03/03/2016 Lupus (HCC) [M32.9] 03/03/2016 Acute ITP (HCC) [D69.3] 05/26/2016 Family history of breast cancer [Z80.3] 04/13/2017 Chronic ITP (idiopathic thrombocytopenia) (HCC)*09/08/2017 Nocturnal leg cramps [G47.62] 10/05/2017 Obstructive sleep apnea syndrome [G47.33] 05/13/2021 Essential hypertension [I10] 05/13/2021 Encounter Status:Closed by LINDA BOURGEOIS on 11/28/23 Normal [facility] CBC W Auto Differential pane l (Bld)on 11-24-2023 Basophils (Bld) [#/Vol] 10*3/uL Normal <0.11 [facility] Comment on above: Order Comment: Speci men Type: BLOOD SPECIMEN Ordering Facility: [facility] Address: [address] [place] [address] Performed By: #### 5 0190-8, 2131-9, 2283-8, 2275-4 #### [facility] CLIA [id number] [address] [place] [address] [place] Basophils/100 WBC (Bld) 0.4 % Normal [facility] Comment on above: Order Comment: Speci men Type: BLOOD SPECIMEN Ordering Facility: [facility] Address: [address] [place] [address] Performed By: #### 5 0190-8, 2131-9, 2283-8, 2275-4 #### [facility] CLIA [id number] [address] [place] [address] [place] Differential cell count method Nom (Bld) Auto Normal [facility] Comment on above: Order Comment: Speci men Type: BLOOD SPECIMEN Ordering Facility: [facility] Address: [address] [place] [address] Performed By: #### 5 0190-8, 9, 2283-8, 2275-4 #### [facility] CLIA [id number] [address] [place] [address] [place] Eosinophils (Bld) [#/Vol] 0.04 10*3/uL Normal <0.46 [facility] Comment on above: Order Comment: Speci men Type: BLOOD SPECIMEN Ordering Facility: [facility] Address: [address] [place] [address] Performed By: #### 5 0190-8, 2131-9, 2283-8, 2275-4 #### [facility] CLIA [id number] [address] [place] [address] [place] Eosinophils/100 WBC (Bld) 0.8 % Normal [facility] Comment on above: Order Comment: Speci men Type: BLOOD SPECIMEN Ordering Facility: [facility] Address: [address] [place] [address] Performed By: #### 5 0190-8, 2131-9, 2283-8, 6-4 #### [facility] CLIA [id number] [address] [place] [address] [place] Erythrocyte distribution width (RBC) [Ratio] 14.1 % Normal 11.5-15.0 [facility] Comment on above: Order Comment: Speci men Type: BLOOD SPECIMEN Ordering Facility: [facility] Address: [address] [place] [address] Performed By: #### 5 0190-8, 2131-9, 2283-8, 6-4 #### [facility] CLIA [id number] [address] [place] [address] [place] Hematocrit (Bld) [Volume fraction] 32.3 % Low 36.0-46.0 [facility] Comment on above: Order Comment: Speci men Type: BLOOD SPECIMEN Ordering Facility: [facility] Address: [address] [place] [address] Performed By: #### 5 0190-8, 2131-9, 2283-8, 2275-4 #### [facility] CLIA [id number] [address] [place] [address] [place] Hemoglobin (Bld) [Mass/Vol] 10.1 g/dL Low 11.5-15.5 [facility] Comment on above: Order Comment: Speci men Type: BLOOD SPECIMEN Ordering Facility: [facility] Address: [address] [place] [address] Performed By: #### 5 0190-8, 2131-9, 2283-8, 6-4 #### [facility] CLIA [id number] [address] [place] [address] [place] Immature granulocytes (Bld) [#/Vol] 10*3/uL Normal <0.10 [facility] Comment on above: Order Comment: Speci men Type: BLOOD SPECIMEN Ordering Facility: [facility] Address: [address] [place] [address] Performed By: #### 5 0190-8, 9, 8, 2275-4 #### [facility] CLIA [id number] [address] [place] [address] [place] Immature granulocytes/100 WBC (Bld) 0.4 % Normal [facility] Comment on above: Order Comment: Speci men Type: BLOOD SPECIMEN Ordering Facility: [facility] Address: [address] [place] [address] Performed By: #### 5 0190-8, 9, 8, 4 #### [facility] CLIA [id number] [address] [place] [address] [place] Lymphocytes (Bld) [#/Vol] 2.39 10*3/uL Normal 1.00-4.00 [facility] Comment on above: Order Comment: Speci men Type: BLOOD SPECIMEN Ordering Facility: [facility] Address: [address] [place] [address] Performed By: #### 5 0190-8, 9, 8, 4 #### [facility] CLIA [id number] [address] [place] [address] [place] Lymphocytes/100 WBC (Bld) 45.4 % Normal [facility] Comment on above: Order Comment: Speci men Type: BLOOD SPECIMEN Ordering Facility: [facility] Address: [address] [place] [address] Performed By: #### 5 0190-8, 9, 8, 4 #### [facility] CLIA [id number] [address] [place] [address] [place] MCH (RBC) [Entitic mass] 31.6 pg Normal 26.0-34.0 [facility] Comment on above: Order Comment: Speci men Type: BLOOD SPECIMEN Ordering Facility: [facility] Address: [address] [place] [address] Performed By: #### 5 0190-8, 9, 2284-02, 2275-10 #### [facility] CLIA [id number] [address] [place] [address] [place] MCHC (RBC) [Mass/Vol] 31.3 g/dL Normal 30.5-36.0 [facility] Comment on above: Order Comment: Speci men Type: BLOOD SPECIMEN Ordering Facility: [facility] Address: [address] [place] [address] Performed By: #### 5 0190-8, 9, 2284-02, 2275-10 #### [facility] CLIA [id number] [address] [place] [address] [place] MCV (RBC) [Entitic vol] 100.9 fL High 80.0-100.0 [facility] Comment on above: Order Comment: Speci men Type: BLOOD SPECIMEN Ordering Facility: [facility] Address: [address] [place] [address] Performed By: #### 5 0190-8, 9, 2284-02, 2275-10 #### [facility] CLIA [id number] [address] [place] [address] [place] Monocytes (Bld) [#/Vol] 0.31 10*3/uL Normal <0.87 [facility] Comment on above: Order Comment: Speci men Type: BLOOD SPECIMEN Ordering Facility: [facility] Address: [address] [place] [address] Performed By: #### 5 0190-8, 9, 2284-02, 2275-10 #### [facility] CLIA [id number] [address] [place] [address] [place] Monocytes/100 WBC (Bld) 5.9 % Normal [facility] Comment on above: Order Comment: Speci men Type: BLOOD SPECIMEN Ordering Facility: [facility] Address: [address] [place] [address] Performed By: #### 5 0190-8, 9, 2284-02, 4 #### [facility] CLIA [id number] [address] [place] [address] [place] Neutrophils (Bld) [#/Vol] 2.49 10*3/uL Normal 1.45-7.50 [facility] Comment on above: Order Comment: Speci men Type: BLOOD SPECIMEN Ordering Facility: [facility] Address: [address] [place] [address] Performed By: #### 5 0190-8, 2132-03, 2284-02, 2275-10 #### [facility] CLIA [id number] [address] [place] [address] [place] Neutrophils/100 WBC (Bld) 47.1 % Normal [facility] Comment on above: Order Comment: Speci men Type: BLOOD SPECIMEN Ordering Facility: [facility] Address: [address] [place] [address] Performed By: #### 5 0190-8, 2132-03, 2284-02, 2275-10 #### [facility] CLIA [id number] [address] [place] [address] [place] Nucleated RBC (Bld) [#/Vol] 10*3/uL Normal <0.01 [facility] Comment on above: Order Comment: Speci men Type: BLOOD SPECIMEN Ordering Facility: [facility] Address: [address] [place] [address] Performed By: #### 5 0190-8, 2132-03, 2284-02, 2275-10 #### [facility] CLIA [id number] [address] [place] [address] [place] Nucleated RBC/100 WBC (Bld) [Ratio] 0.0 /100 WBC Normal [facility] Comment on above: Order Comment: Speci men Type: BLOOD SPECIMEN Ordering Facility: [facility] Address: [address] [place] [address] Performed By: #### 5 0190-8, 9, 8, 4 #### [facility] CLIA [id number] [address] [place] [address] [place] Platelet mean volume (Bld) [Entitic vol] 9.1 fL Normal 9.0-12.7 [facility] Comment on above: Order Comment: Speci men Type: BLOOD SPECIMEN Ordering Facility: [facility] Address: [address] [place] [address] Performed By: #### 5 0190-8, 2132-03, 2284-02, 2275-10 #### [facility] CLIA [id number] [address] [place] [address] [place] Platelets (Bld) [#/Vol] 134 10*3/uL Low 150-400 [facility] Comment on above: Order Comment: Speci men Type: BLOOD SPECIMEN Ordering Facility: [facility] Address: [address] [place] [address] Performed By: #### 5 0190-8, 9, 2284-02, 2275-10 #### [facility] CLIA [id number] [address] [place] [address] [place] RBC (Bld) [#/Vol] 3.20 10*6/uL Low 3.90-5.20 [place] Comment on above: Order Comment: Speci men Type: BLOOD SPECIMEN Ordering Facility: [facility] Address: [address] [place] [address] Performed By: #### 5 0190-8, 9, 2284-02, 2275-10 #### [facility] CLIA [id number] [address] [place] [address] [place] WBC (Bld) [#/Vol] 5.27 10*3/uL Normal 3.70-11.00 [place] Comment on above: Order Comment: Speci men Type: BLOOD SPECIMEN Ordering Facility: [facility] Address: [address] [place] [address] Performed By: #### 5 0190-8, 2132-9, 2284-8, 2276-4 #### [facility] CLIA [id number] [address] [place] [address] [place] CNOVSPon 11-24-2023 CNOVSP Visit (SP) Office (HEMASA) ANDREI FISH ([id number]) 1950 F Date Time Provider Department 11/24/23 10:45 AM RINKU RAMSEY During your visit today, we recorded the following information about you: Temperature Pulse Respiration Blood pressure 97.7 degrees 68/minute 16/minute 152/84 Weight Height 87.7 kg 1.588 m Rinku Ramsey MD 11/25/2023 12:47 PM Signed NAME: Andrei Fish CLINIC NO.: [id number] DATE OF SERVICE: November 24, 2023 (Roxy) Some elements in this clinic note that are critical to medical decision making have been carefully reviewed and included from a prior clinic note dated: October 13 2023 (Mary). Additional Clinicians involved in Andrei Miranda Fish's care: Dr. Shay, Dr. Deluna, Dr. [...] 6 weeks for labs and follow up - HPI: CASE HISTORY: Reverse Chronological Order 03/29/2023 [...] 2023: Andrei returns today for follow up. S (more content not included)... Normal [facility] Comprehensive metabolic 2000 panelon 05-17-2024 Albumin [Mass/Vol] 3.8 g/dL Low 3.9-4.9 [facility] Comment on above: Order Comment: Speci men Type: BLOOD SPECIMEN Ordering Facility: [facility] Address: [address] [place] [address] Performed By: #### 2 132-9, 46183-1, 2284-8, 6-4 #### [facility] CLIA [id number] [address] [place] [address] [place] ALP [Catalytic activity/Vol] 57 U/L Normal 34-123 [facility] Comment on above: Order Comment: Speci men Type: BLOOD SPECIMEN Ordering Facility: [facility] Address: [address] [place] [address] Performed By: #### 2 132-9, 78208-9, 4-8, 6-4 #### [facility] CLIA [id number] [address] [place] [address] [place] ALT [Catalytic activity/Vol] 15 U/L Normal 7-38 [facility] Comment on above: Order Comment: Speci men Type: BLOOD SPECIMEN Ordering Facility: [facility] Address: [address] [place] [address] Performed By: #### 2 132-9, 05748-8, 2284-8, 6-4 #### [facility] CLIA [id number] [address] [place] [address] [place] Anion gap [Moles/Vol] 8 mmol/L Low 9-18 [facility] Comment on above: Order Comment: Speci men Type: BLOOD SPECIMEN Ordering Facility: [facility] Address: [address] [place] [address] Performed By: #### 2 132-9, 36923-1, 2284-8, 2276-4 #### [facility] CLIA [id number] [address] [place] [address] [place] AST [Catalytic activity/Vol] 24 U/L Normal 13-35 [facility] Comment on above: Order Comment: Speci men Type: BLOOD SPECIMEN Ordering Facility: [facility] Address: [address] [place] [address] Performed By: #### 2 132-9, 39983-2, 2284-8, 6-4 #### [facility] CLIA [id number] [address] [place] [address] [place] Bilirubin [Mass/Vol] 0.4 mg/dL Normal 0.2-1.3 [facility] Comment on above: Order Comment: Speci men Type: BLOOD SPECIMEN Ordering Facility: [facility] Address: [address] [place] [address] Performed By: #### 2 132-9, 40455-5, 4-8, 2275-4 #### [facility] CLIA [id number] [address] [place] [address] [place] Calcium [Mass/Vol] 9.8 mg/dL Normal 8.5-10.2 [facility] Comment on above: Order Comment: Speci men Type: BLOOD SPECIMEN Ordering Facility: [facility] Address: [address] [place] [address] Performed By: #### 2 132-9, 42760-2, 2283-8, 2275-4 #### [facility] CLIA [id number] [address] [place] [address] [place] Chloride [Moles/Vol] 108 mmol/L High 97-105 [facility] Comment on above: Order Comment: Speci men Type: BLOOD SPECIMEN Ordering Facility: [facility] Address: [address] [place] [address] Performed By: #### 2 132-9, 80467-0, 4-8, 2275-4 #### [facility] CLIA [id number] [address] [place] [address] [place] CO2 [Moles/Vol] 24 mmol/L Normal 22-30 [facility] Comment on above: Order Comment: Speci men Type: BLOOD SPECIMEN Ordering Facility: [facility] Address: [address] [place] [address] Performed By: #### 2 132-9, 10318-2, 4-8, 6-4 #### [facility] CLIA [id number] [address] [place] [address] [place] Creatinine [Mass/Vol] 1.36 mg/dL High 0.58-0.96 [facility] Comment on above: Order Comment: Speci men Type: BLOOD SPECIMEN Ordering Facility: [facility] Address: [address] [place] [address] Performed By: #### 2 132-9, 90578-1, 2283-8, 2275-4 #### [facility] CLIA [id number] [address] [place] [address] [place] Creatinine and Glomerular filtration rate.predicted panel (S/P/Bld) 41 mL/min/1.73m??? Low >=60 [facility] Comment on above: Order Comment: Virgilioi men Type: BLOOD SPECIMEN Ordering Facility: [facility] Address: [address] [place] [address] Result Comment: Miryam mated Glomerular Filtration Rate [...] reflect actual GFR. Performed By: #### 2 132-9, 35751-3, 2283-8, 2275-4 #### [facility] CLIA [id number] [address] [place] [address] [place] Glucose [Mass/Vol] 113 mg/dL High 74-99 [facility] Comment on above: Order Comment: Speci men Type: BLOOD SPECIMEN Ordering Facility: [facility] Address: [address] [place] [address] Result Comment: The [place] Diabetes Association (ADA) provides guidance for cutoff [...] Standards of Medical Care in Diabetes 2016, [place] Diabetes Association. Diabetes Care. 2016.39(Suppl 1). Performed By: #### 2 132-9, 75185-0, 2283-8, 2275-4 #### [facility] CLIA [id number] [address] [place] [address] [place] Potassium [Moles/Vol] 5.8 mmol/L High 3.7-5.1 [facility] Comment on above: Order Comment: Speci men Type: BLOOD SPECIMEN Ordering Facility: [facility] Address: [address] [place] [address] Performed By: #### 2 132-9, 65262-2, 8, 4 #### [facility] CLIA [id number] [address] [place] [address] [place] Protein [Mass/Vol] 7.6 g/dL Normal 6.3-8.0 [facility] Comment on above: Order Comment: Speci men Type: BLOOD SPECIMEN Ordering Facility: [facility] Address: [address] [place] [address] Performed By: #### 2 132-9, 38547-9, 2283-8, 4 #### [facility] CLIA [id number] [address] [place] [address] [place] Sodium [Moles/Vol] 140 mmol/L Normal 136-144 [facility] [place] Comment on above: Order Comment: Speci men Type: BLOOD SPECIMEN Ordering Facility: [facility] Address: [address] [place] [address] Performed By: #### 2 132-9, 68746-0, 2284-8, 6-4 #### [facility] CLIA [id number] [address] [place] [address] [place] Urea nitrogen [Mass/Vol] 43 mg/dL High 7-21 [facility] Comment on above: Order Comment: Speci men Type: BLOOD SPECIMEN Ordering Facility: [facility] Address: [address] [place] [address] Performed By: #### 2 132-9, 68906-5, 4-8, 2275-4 #### [facility] CLIA [id number] [address] [place] [address] [place] Ferritin SerPl-mCncon 2023 Ferritin [Mass/Vol] 56.3 ng/mL Normal 14.7-205.1 [place] Comment on above: Order Comment: Speci men Type: BLOOD SPECIMEN Ordering Facility: [facility] Address: [address] [place] [address] Performed By: #### 5 0190-8, 2-9, 2283-8, 2275-4 #### [facility] CLIA [id number] [address] [place] [address] [place] Folate SerPl-mCncon 11-24-19 Folate [Mass/Vol] 7.7 ng/mL Normal >4.7 [facility] Comment on above: Order Comment: Speci men Type: BLOOD SPECIMEN Ordering Facility: [facility] Address: [address] [place] [address] Performed By: #### 5 0190-8, 2132-9, 4-8, 2275-4 #### [facility] CLIA [id number] [address] [place] [id number] [place] Iron and Iron binding capaci ty panelon 11-24-2023 Iron [Mass/Vol] 76 ug/dL Normal 41-186 [facility] Comment on above: Order Comment: Speci men Type: BLOOD SPECIMEN Ordering Facility: [facility] Address: [address] [place] [address] Performed By: #### 5 0190-8, 2131-9, 8, 2275-4 #### [facility] CLIA [id number] [address] [place] [address] [place] Iron binding capacity [Mass/Vol] 361 ug/dL Normal 232-386 [facility] Comment on above: Order Comment: Speci men Type: BLOOD SPECIMEN Ordering Facility: [facility] Address: [address] [place] [address] Performed By: #### 5 0190-8, 9, 8, 2275-4 #### [facility] CLIA [id number] [address] [place] [address] [place] Iron/TIBC [Molar ratio] 21.1 % Normal 15.0-57.0 [facility] Comment on above: Order Comment: Speci men Type: BLOOD SPECIMEN Ordering Facility: [facility] Address: [address] [place] [address] Performed By: #### 5 0190-8, 2131-9, 8, 2275-4 #### [facility] CLIA [id number] [address] [place] [address] [place] Vit B12 SerPl-mCncon 024 Cobalamin (Vitamin B12) [Mass/Vol] 427 pg/mL Normal 232-1245 [facility] Comment on above: Order Comment: Speci men Type: BLOOD SPECIMEN Ordering Facility: [facility] Address: [address] [place] [address] Performed By: #### 5 0190-8, 2131-9, 8, 2275-4 #### [facility] CLIA [id number] [address] [place], [place] [address] [address] [place] CT IAC WO IV CONTRASTon CT IAC WO IV CONTRAST Interpreted By: Tiffani Vidales, STUDY: CT IAC WO IV CONTRAST; 11/14/2023 3:03 pm INDICATION: Signs/Symptoms:cholest eatoma. COMPARISON: None. ACCESSION NUMBER(S): [id number] ORDERING CLINICIAN: SUSANNA GRAF TECHNIQUE: Noncontrast CT [...] visualized right maxillary sinus suggesting a chronic infectious/inflammator y process. There are presumed postsurgical changes of [...] Tiffani Villagomez 11/14/2023 3:18 PM Dictation workstation: [id number] [facility] CT Internal auditory canal W O [...] the mastoid tip. MACRO: None Signed by: Tifafni Villagomez 11/14/2023 3:18 PM Dictation workstation: [id number] [facility] Interpreted By: Tiffani Mills, STUDY: CT IAC WO IV CONTRAST; 11/14/2023 3:03 pm INDICATION: Signs/Symptoms:cholest eatoma. COMPARISON: None. ACCESSION NUMBER(S): [id number] ORDERING CLINICIAN: SUSANNA GRAF TECHNIQUE: Noncontrast CT [...] visualized right maxillary sinus suggesting a chronic infectious/inflammator y process. There are presumed postsurgical changes of [...] WO IV CONTRAST; 11/14/2023 3:03 pm INDICATION: Signs/Symptoms:cholest eatoma. COMPARISON: None. ACCESSION NUMBER(S): [id number] ORDERING CLINICIAN: SUSANNA GRAF TECHNIQUE: Noncontrast CT [...] visualized right maxillary sinus suggesting a chronic infectious/inflammator y process. There are presumed postsurgical changes of [...] Tiffani Villagomez 11/14/2023 3:18 PM Dictation workstation: [id number] [facility] Work Phone: Radiology Study observation (narrative) [facility] Work Phone: CT Internal auditory canal W O contrastOrdered By: Tiffani Villagomez on 11-14-2023 [facility] Work Phone: CBC W Auto Differential pane l (Bld)on 10-13-2023 Basophils (Bld) [#/Vol] 10*3/uL Normal <0.11 [facility] Comment on above: Order Comment: Speci men Type: BLOOD SPECIMEN Ordering Facility: [facility] Address: [address] [place] [address] Performed By: #### 5 0190-8, 2132-03, 2284-02, 2275-10 #### [facility] CLIA [id number] [address] [place] [address] [place] Basophils/100 WBC (Bld) 0.2 % Normal [facility] Comment on above: Order Comment: Speci men Type: BLOOD SPECIMEN Ordering Facility: [facility] Address: [address] [place] [address] Performed By: #### 5 0190-8, 2132-03, 2284-02, 2275-10 #### [facility] CLIA [id number] [address] [place] [address] [place] Differential cell count method Nom (Bld) Auto Normal [facility] Comment on above: Order Comment: Speci men Type: BLOOD SPECIMEN Ordering Facility: [facility] Address: [address] [place] [address] Performed By: #### 5 0190-8, 2132-03, 2284-02, 2275-10 #### [facility] CLIA [id number] [address] [place] [address] [place] Eosinophils (Bld) [#/Vol] 0.06 10*3/uL Normal <0.46 [facility] Comment on above: Order Comment: Speci men Type: BLOOD SPECIMEN Ordering Facility: [facility] Address: [address] [place] [address] Performed By: #### 5 0190-8, 2132-03, 2284-02, 2275-10 #### [facility] CLIA [id number] [address] [place] [address] [place] Eosinophils/100 WBC (Bld) 1.0 % Normal [facility] Comment on above: Order Comment: Speci men Type: BLOOD SPECIMEN Ordering Facility: [facility] Address: [address] [place] [address] Performed By: #### 5 0190-8, 9, 2284-02, 2275-10 #### [facility] CLIA [id number] [address] [place] [address] [place] Erythrocyte distribution width (RBC) [Ratio] 14.3 % Normal 11.5-15.0 [facility] Comment on above: Order Comment: Speci men Type: BLOOD SPECIMEN Ordering Facility: [facility] Address: [address] [place] [address] Performed By: #### 5 0190-8, 2132-03, 2284-02, 2275-10 #### [facility] CLIA [id number] [address] [place] [address] [place] Hematocrit (Bld) [Volume fraction] 34.5 % Low 36.0-46.0 [facility] Comment on above: Order Comment: Speci men Type: BLOOD SPECIMEN Ordering Facility: [facility] Address: [address] [place] [address] Performed By: #### 5 0190-8, 2132-03, 2284-02, 2275-10 #### [facility] CLIA [id number] [address] [place] [address] [place] Hemoglobin (Bld) [Mass/Vol] 11.0 g/dL Low 11.5-15.5 [facility] Comment on above: Order Comment: Speci men Type: BLOOD SPECIMEN Ordering Facility: [facility] Address: [address] [place] [address] Performed By: #### 5 0190-8, 2132-03, 2284-02, 2275-10 #### [facility] CLIA [id number] [address] [place] [address] [place] Immature granulocytes (Bld) [#/Vol] 10*3/uL Normal <0.10 [facility] Comment on above: Order Comment: Speci men Type: BLOOD SPECIMEN Ordering Facility: [facility] Address: [address] [place] [address] Performed By: #### 5 0190-8, 2132-03, 2284-02, 2275-10 #### [facility] CLIA [id number] [address] [place] [address] [place] Immature granulocytes/100 WBC (Bld) 0.2 % Normal [facility] Comment on above: Order Comment: Speci men Type: BLOOD SPECIMEN Ordering Facility: [facility] Address: [address] [place] [address] Performed By: #### 5 0190-8, 2132-03, 2284-02, 2275-10 #### [facility] CLIA [id number] [address] [place] [address] [place] Lymphocytes (Bld) [#/Vol] 2.79 10*3/uL Normal 1.00-4.00 [facility] Comment on above: Order Comment: Speci men Type: BLOOD SPECIMEN Ordering Facility: [facility] Address: [address] [place] [address] Performed By: #### 5 0190-8, 2132-03, 2284-02, 2275-10 #### [facility] CLIA [id number] [address] [place] [address] [place] Lymphocytes/100 WBC (Bld) 48.4 % Normal [facility] Comment on above: Order Comment: Speci men Type: BLOOD SPECIMEN Ordering Facility: [facility] Address: [address] [place] [address] Performed By: #### 5 0190-8, 2132-03, 2284-02, 2275-10 #### [facility] CLIA [id number] [address] [place] [address] [place] MCH (RBC) [Entitic mass] 31.5 pg Normal 26.0-34.0 [facility] Comment on above: Order Comment: Speci men Type: BLOOD SPECIMEN Ordering Facility: [facility] Address: [address] [place] [address] Performed By: #### 5 0190-8, 9, 8, 2275-4 #### [facility] CLIA [id number] [address] [place] [address] [place] MCHC (RBC) [Mass/Vol] 31.9 g/dL Normal 30.5-36.0 [facility] Comment on above: Order Comment: Speci men Type: BLOOD SPECIMEN Ordering Facility: [facility] Address: [address] [place] [address] Performed By: #### 5 0190-8, 2132-03, 8, 4 #### [facility] CLIA [id number] [address] [place] [address] [place] MCV (RBC) [Entitic vol] 98.9 fL Normal 80.0-100.0 [facility] Comment on above: Order Comment: Speci men Type: BLOOD SPECIMEN Ordering Facility: [facility] Address: [address] [place] [address] Performed By: #### 5 0190-8, 2132-03, 2284-02, 2275-10 #### [facility] CLIA [id number] [address] [place] [address] [place] Monocytes (Bld) [#/Vol] 0.30 10*3/uL Normal <0.87 [facility] Comment on above: Order Comment: Speci men Type: BLOOD SPECIMEN Ordering Facility: [facility] Address: [address] [place] [address] Performed By: #### 5 0190-8, 9, 2284-02, 4 #### [facility] CLIA [id number] [address] [place] [address] [place] Monocytes/100 WBC (Bld) 5.2 % Normal [facility] Comment on above: Order Comment: Speci men Type: BLOOD SPECIMEN Ordering Facility: [facility] Address: [address] [place] [address] Performed By: #### 5 0190-8, 2-9, 2284-8, 2276-4 #### [facility] CLIA [id number] [address] [place] [address] [place] Neutrophils (Bld) [#/Vol] 2.59 10*3/uL Normal 1.45-7.50 [facility] Comment on above: Order Comment: Speci men Type: BLOOD SPECIMEN Ordering Facility: [facility] Address: [address] [place] [address] Performed By: #### 5 0190-8, 2131-9, 4-8, 6-4 #### [facility] CLIA [id number] [address] [place] [address] [place] Neutrophils/100 WBC (Bld) 45.0 % Normal [facility] Comment on above: Order Comment: Speci men Type: BLOOD SPECIMEN Ordering Facility: [facility] Address: [address] [place] [address] Performed By: #### 5 0190-8, 2131-9, 4-8, 2276-4 #### [facility] CLIA [id number] [address] [place] [address] [place] Nucleated RBC (Bld) [#/Vol] 10*3/uL Normal <0.01 [facility] Comment on above: Order Comment: Speci men Type: BLOOD SPECIMEN Ordering Facility: [facility] Address: [address] [place] [address] Performed By: #### 5 0190-8, 2-9, 4-8, 2276-4 #### [facility] CLIA [id number] [address] [place] [address] [place] Nucleated RBC/100 WBC (Bld) [Ratio] 0.0 /100 WBC Normal [facility] Comment on above: Order Comment: Speci men Type: BLOOD SPECIMEN Ordering Facility: [facility] Address: [address] [place] [address] Performed By: #### 5 0190-8, 2-9, 2283-8, 6-4 #### [facility] CLIA [id number] [address] [place] [address] [place] Platelet mean volume (Bld) [Entitic vol] 9.4 fL Normal 9.0-12.7 [facility] Comment on above: Order Comment: Speci men Type: BLOOD SPECIMEN Ordering Facility: [facility] Address: [address] [place] [address] Performed By: #### 5 0190-8, 2131-9, 2283-8, 2275-4 #### [facility] CLIA [id number] [address] [place] [address] [place] Platelets (Bld) [#/Vol] 147 10*3/uL Low 150-400 [facility] Comment on above: Order Comment: Speci men Type: BLOOD SPECIMEN Ordering Facility: [facility] Address: [address] [place] [address] Performed By: #### 5 0190-8, 2131-9, 2283-8, 6-4 #### [facility] CLIA [id number] [address] [place] [address] [place] RBC (Bld) [#/Vol] 3.49 10*6/uL Low 3.90-5.20 [place] Comment on above: Order Comment: Speci men Type: BLOOD SPECIMEN Ordering Facility: [facility] Address: [address] [place] [address] Performed By: #### 5 0190-8, 2-9, 2283-8, 6-4 #### [facility] CLIA [id number] [address] [place] [address] [place] WBC (Bld) [#/Vol] 5.76 10*3/uL Normal 3.70-11.00 [place] Comment on above: Order Comment: Virgilioi men Type: BLOOD SPECIMEN Ordering Facility: [facility] Address: [address] [place] [address] Performed By: #### 5 0190-8, 2132-9, 2284-8, 2276-4 #### [facility] CLIA [id number] [address] [place] [address] [place] CNOVSPon 10-13-2023 CNOVSP Visit (SP) Office ([place]) ANDREI FISH ([id number]) 1950 F Date Time Provider Department 10/13/23 1:30 PM ANA [place] During your visit today, we recorded the following information about you: Temperature Pulse Respiration Blood pressure 97.6 degrees 68/minute 18/minute 152/84 Weight Height 87 kg 1.588 m Ana Phoenix PA-C 10/13/2023 1:53 PM Signed NAME: Andrei Fish AYALA NO.: [id number] DATE OF SERVICE: October 13 2023 (Mary) (Elements copied from Dr. Ramsey's note dated August 28, 2023, have been reviewed and updated where appropriate, and all reflect current assessment and medical decision making during today's encounter, October 13, 2023) Additional Clinicians involved in Andrei Fish's care: Dr. Shay, Dr. Deluna DIAGNOSIS: Chronic [...] 05/17/2023--PCP managing. PLAN: Continue Tavalisse 100 mg BID Return in 6 weeks for labs and follow up Refill [place] for patient - HPI: Case History: 03/29/2023 - [place] [...] 2018 - Rituxan X 4 Updated Visit, October 13, 2023: Andrei returns [...] has been having some weakness when moving aroun (more content not included)... Normal [facility] Comprehensive metabolic 2000 panelon 04-05-2024 Albumin [Mass/Vol] 4.1 g/dL Normal 3.9-4.9 [facility] Comment on above: Order Comment: Speci men Type: BLOOD SPECIMEN Ordering Facility: [facility] Address: [address] [place] [address] Performed By: #### 5 0190-8, 2-9, 4-8, 2276-4 #### [facility] CLIA [id number] [address] [place] [address] [place] ALP [Catalytic activity/Vol] 65 U/L Normal 34-123 [facility] Comment on above: Order Comment: Speci men Type: BLOOD SPECIMEN Ordering Facility: [facility] Address: [address] [place] [address] Performed By: #### 5 0190-8, 2131-9, 2283-8, 6-4 #### [facility] CLIA [id number] [address] [place] [address] [place] ALT [Catalytic activity/Vol] 15 U/L Normal 7-38 [facility] Comment on above: Order Comment: Speci men Type: BLOOD SPECIMEN Ordering Facility: [facility] Address: [address] [place] [address] Performed By: #### 5 0190-8, 2131-9, 4-8, 6-4 #### [facility] CLIA [id number] [address] [place] [address] [place] Anion gap [Moles/Vol] 9 mmol/L Normal 9-18 [facility] Comment on above: Order Comment: Speci men Type: BLOOD SPECIMEN Ordering Facility: [facility] Address: [address] [place] [address] Performed By: #### 5 0190-8, 2131-9, 4-8, 2276-4 #### [facility] CLIA [id number] [address] [place] [address] [place] AST [Catalytic activity/Vol] 24 U/L Normal 13-35 [facility] Comment on above: Order Comment: Speci men Type: BLOOD SPECIMEN Ordering Facility: [facility] Address: [address] [place] [address] Performed By: #### 5 0190-8, 2-9, 4-8, 2276-4 #### [facility] CLIA [id number] [address] [place] [address] [place] Bilirubin [Mass/Vol] 0.4 mg/dL Normal 0.2-1.3 [facility] Comment on above: Order Comment: Speci men Type: BLOOD SPECIMEN Ordering Facility: [facility] Address: [address] [place] [address] Performed By: #### 5 0190-8, 2131-9, 2283-8, 6-4 #### [facility] CLIA [id number] [address] [place] [address] [place] Calcium [Mass/Vol] 10.2 mg/dL Normal 8.5-10.2 [facility] Comment on above: Order Comment: Speci men Type: BLOOD SPECIMEN Ordering Facility: [facility] Address: [address] [place] [address] Performed By: #### 5 0190-8, 2131-9, 2283-8, 6-4 #### [facility] CLIA [id number] [address] [place] [address] [place] Chloride [Moles/Vol] 106 mmol/L High 97-105 [facility] Comment on above: Order Comment: Speci men Type: BLOOD SPECIMEN Ordering Facility: [facility] Address: [address] [place] [address] Performed By: #### 5 0190-8, 2131-9, 4-8, 2276-4 #### [facility] CLIA [id number] [address] [place] [address] [place] CO2 [Moles/Vol] 24 mmol/L Normal 22-30 [facility] Comment on above: Order Comment: Fabricio tapia Type: BLOOD SPECIMEN Ordering Facility: [facility] Address: [address] [place] [address] Performed By: #### 5 0190-8, 2-9, 2283-8, 6-4 #### [facility] CLIA [id number] [address] [place] [address] [place] Creatinine [Mass/Vol] 1.47 mg/dL High 0.58-0.96 [facility] Comment on above: Order Comment: Fabricio tapia Type: BLOOD SPECIMEN Ordering Facility: [facility] Address: [address] [place] [address] Performed By: #### 5 0190-8, 2131-9, 8, 2275-4 #### [facility] CLIA [id number] [address] [place] [address] [place] Creatinine and Glomerular filtration rate.predicted panel (S/P/Bld) 38 mL/min/1.73m??? Low >=60 [facility] Comment on above: Order Comment: Fabricio tapia Type: BLOOD SPECIMEN Ordering Facility: [facility] Address: [address] [place] [address] Result Comment: Miryam mated Glomerular Filtration Rate [...] accurately reflect actual GFR. Performed By: #### 5 0190-8, 2131-9, 2283-8, 2275-4 #### [facility] CLIA [id number] [address] [place] [address] [place] Glucose [Mass/Vol] 120 mg/dL High 74-99 [facility] Comment on above: Order Comment: Fabricio tapia Type: BLOOD SPECIMEN Ordering Facility: [facility] Address: [address] [place] [address] Result Comment: The [place] Diabetes Association (ADA) provides guidance for cutoff [...] Standards of Medical Care in Diabetes 2016, [place] Diabetes Association. Diabetes Care. 2016.39(Suppl 1). Performed By: #### 5 0190-8, 9, 2283-8, 2275-4 #### [facility] CLIA [id number] [address] [place] [address] [place] Potassium [Moles/Vol] 4.6 mmol/L Normal 3.7-5.1 [facility] Comment on above: Order Comment: Fabricio tapia Type: BLOOD SPECIMEN Ordering Facility: [facility] Address: [address] [place] [address] Performed By: #### 5 0190-8, 9, 8, 2275-4 #### [facility] CLIA [id number] [address] [place] [address] [place] Protein [Mass/Vol] 7.9 g/dL Normal 6.3-8.0 [facility] Comment on above: Order Comment: Fabricio tapia Type: BLOOD SPECIMEN Ordering Facility: [facility] Address: [address] [place] [address] Performed By: #### 5 0190-8, 9, 8, 6-4 #### [facility] CLIA [id number] [address] [place] [address] [place] Sodium [Moles/Vol] 139 mmol/L Normal 136-144 [facility] Comment on above: Order Comment: Speci men Type: BLOOD SPECIMEN Ordering Facility: [facility] Address: [address] [place] [address] Performed By: #### 5 0190-8, 2132-9, 2283-8, 2275-4 #### [facility] CLIA [id number] [address] [place] [address] [place] Urea nitrogen [Mass/Vol] 42 mg/dL High 7-21 [facility] Comment on above: Order Comment: Speci men Type: BLOOD SPECIMEN Ordering Facility: [facility] Address: [address] [place] [address] Performed By: #### 5 0190-8, 2131-9, 2283-8, 2275-4 #### [facility] CLIA [id number] [address] [place] [address] [place] Ferritin SerPl-mCncon 2023 Ferritin [Mass/Vol] 89.0 ng/mL Normal 14.7-205.1 [place] Comment on above: Order Comment: Speci men Type: BLOOD SPECIMEN Ordering Facility: [facility] Address: [address] [place] [address] Performed By: #### 2 132-9, 63847-8, 2283-8, 2275-4 #### [facility] CLIA [id number] [address] [place] [address] [place] Folate SerPl-mCncon 10-13-19 Folate [Mass/Vol] 4.8 ng/mL Normal >4.7 [facility] Comment on above: Order Comment: Speci men Type: BLOOD SPECIMEN Ordering Facility: [facility] Address: [address] [place] [address] Performed By: #### 2 132-9, 40858-0, 2283-8, 6-4 #### [facility] CLIA [id number] [address] [place] [address] [place] Iron and Iron binding capaci ty panelon 10-13-2023 Iron [Mass/Vol] 63 ug/dL Normal 41-186 [facility] Comment on above: Order Comment: Speci men Type: BLOOD SPECIMEN Ordering Facility: [facility] Address: [address] [place] [address] Performed By: #### 2 132-9, 01223-0, 2283-8, 2275-4 #### [facility] CLIA [id number] [address] [place] [address] [place] Iron binding capacity [Mass/Vol] 376 ug/dL Normal 232-386 [facility] Comment on above: Order Comment: Speci men Type: BLOOD SPECIMEN Ordering Facility: [facility] Address: [address] [place] [address] Performed By: #### 2 132-9, 38355-9, 4-8, 2275-4 #### [facility] CLIA [id number] [address] [place] [address] [place] Iron/TIBC [Molar ratio] 16.8 % Normal 15.0-57.0 [facility] Comment on above: Order Comment: Speci men Type: BLOOD SPECIMEN Ordering Facility: [facility] Address: [address] [place] [address] Performed By: #### 2 132-9, 06042-9, 2283-8, 2275-4 #### [facility] CLIA [id number] [address] [place] [address] [place] Vit B12 SerPl-mCncon 024 Cobalamin (Vitamin B12) [Mass/Vol] 516 pg/mL Normal 232-1245 [facility] Comment on above: Order Comment: Speci men Type: BLOOD SPECIMEN Ordering Facility: [facility] Address: [address] [place] [address] Performed By: #### 2 132-9, 89187-0, 2283-8, 2275-4 #### [facility] CLIA [id number] [address] [place] [address] [place] CBC W Auto Differential pane l (Bld)on 08-28-2023 Basophils (Bld) [#/Vol] 10*3/uL Normal <0.11 [facility] Comment on above: Order Comment: Speci men Type: BLOOD SPECIMEN Ordering Facility: [facility] Address: [address] [place] [address] Performed By: #### 5 0190-8, 2131-9, 8, 2275-4 #### [facility] CLIA [id number] [address] [place] [address] [place] Basophils/100 WBC (Bld) 0.4 % Normal [facility] Comment on above: Order Comment: Speci men Type: BLOOD SPECIMEN Ordering Facility: [facility] Address: [address] [place] [address] Performed By: #### 5 0190-8, 2131-9, 2283-8, 2275-4 #### [facility] CLIA [id number] [address] [place] [address] [place] Differential cell count method Nom (Bld) Auto Normal [facility] Comment on above: Order Comment: Speci men Type: BLOOD SPECIMEN Ordering Facility: [facility] Address: [address] [place] [address] Performed By: #### 5 0190-8, 2131-9, 8, 2275-4 #### [facility] CLIA [id number] [address] [place] [address] [place] Eosinophils (Bld) [#/Vol] 0.06 10*3/uL Normal <0.46 [facility] Comment on above: Order Comment: Speci men Type: BLOOD SPECIMEN Ordering Facility: [facility] Address: [address] [place] [address] Performed By: #### 5 0190-8, 2131-9, 2283-8, 2275-4 #### [facility] CLIA [id number] [address] [place] [address] [place] Eosinophils/100 WBC (Bld) 1.1 % Normal [facility] Comment on above: Order Comment: Speci men Type: BLOOD SPECIMEN Ordering Facility: [facility] Address: [address] [place] [address] Performed By: #### 5 0190-8, 2131-9, 2283-8, 2275-4 #### [facility] CLIA [id number] [address] [place] [address] [place] Erythrocyte distribution width (RBC) [Ratio] 14.3 % Normal 11.5-15.0 [facility] Comment on above: Order Comment: Speci men Type: BLOOD SPECIMEN Ordering Facility: [facility] Address: [address] [place] [address] Performed By: #### 5 0190-8, 2131-9, 2283-8, 2275-4 #### [facility] CLIA [id number] [address] [place] [address] [place] Hematocrit (Bld) [Volume fraction] 32.5 % Low 36.0-46.0 [facility] Comment on above: Order Comment: Speci men Type: BLOOD SPECIMEN Ordering Facility: [facility] Address: [address] [place] [address] Performed By: #### 5 0190-8, 2131-9, 2283-8, 2275-4 #### [facility] CLIA [id number] [address] [place] [address] [place] Hemoglobin (Bld) [Mass/Vol] 10.4 g/dL Low 11.5-15.5 [facility] Comment on above: Order Comment: Speci men Type: BLOOD SPECIMEN Ordering Facility: [facility] Address: [address] [place] [address] Performed By: #### 5 0190-8, 9, 8, 2275-4 #### [facility] CLIA [id number] [address] [place] [address] [place] Immature granulocytes (Bld) [#/Vol] 10*3/uL Normal <0.10 [facility] Comment on above: Order Comment: Speci men Type: BLOOD SPECIMEN Ordering Facility: [facility] Address: [address] [place] [address] Performed By: #### 5 0190-8, 9, 8, 4 #### [facility] CLIA [id number] [address] [place] [address] [place] Immature granulocytes/100 WBC (Bld) 0.4 % Normal [facility] Comment on above: Order Comment: Speci men Type: BLOOD SPECIMEN Ordering Facility: [facility] Address: [address] [place] [address] Performed By: #### 5 0190-8, 9, 8, 4 #### [facility] CLIA [id number] [address] [place] [address] [place] Lymphocytes (Bld) [#/Vol] 2.38 10*3/uL Normal 1.00-4.00 [facility] Comment on above: Order Comment: Speci men Type: BLOOD SPECIMEN Ordering Facility: [facility] Address: [address] [place] [address] Performed By: #### 5 0190-8, 2131-9, 8, 2275-4 #### [facility] CLIA [id number] [address] [place] [address] [place] Lymphocytes/100 WBC (Bld) 44.3 % Normal [facility] Comment on above: Order Comment: Speci men Type: BLOOD SPECIMEN Ordering Facility: [facility] Address: [address] [place] [address] Performed By: #### 5 0190-8, 9, 2284-02, 2275-10 #### [facility] CLIA [id number] [address] [place] [address] [place] MCH (RBC) [Entitic mass] 32.0 pg Normal 26.0-34.0 [facility] Comment on above: Order Comment: Speci men Type: BLOOD SPECIMEN Ordering Facility: [facility] Address: [address] [place] [address] Performed By: #### 5 0190-8, 9, 2284-02, 2275-10 #### [facility] CLIA [id number] [address] [place] [address] [place] MCHC (RBC) [Mass/Vol] 32.0 g/dL Normal 30.5-36.0 [facility] Comment on above: Order Comment: Speci men Type: BLOOD SPECIMEN Ordering Facility: [facility] Address: [address] [place] [address] Performed By: #### 5 0190-8, 9, 2284-02, 2275-10 #### [facility] CLIA [id number] [address] [place] [address] [place] MCV (RBC) [Entitic vol] 100.0 fL Normal 80.0-100.0 [facility] Comment on above: Order Comment: Speci men Type: BLOOD SPECIMEN Ordering Facility: [facility] Address: [address] [place] [address] Performed By: #### 5 0190-8, 9, 2284-02, 2275-10 #### [facility] CLIA [id number] [address] [place] [address] [place] Monocytes (Bld) [#/Vol] 0.29 10*3/uL Normal <0.87 [facility] Comment on above: Order Comment: Speci men Type: BLOOD SPECIMEN Ordering Facility: [facility] Address: [address] [place] [address] Performed By: #### 5 0190-8, 9, 8, 4 #### [facility] CLIA [id number] [address] [place] [address] [place] Monocytes/100 WBC (Bld) 5.4 % Normal [facility] Comment on above: Order Comment: Speci men Type: BLOOD SPECIMEN Ordering Facility: [facility] Address: [address] [place] [address] Performed By: #### 5 0190-8, 2132-03, 8, 4 #### [facility] CLIA [id number] [address] [place] [address] [place] Neutrophils (Bld) [#/Vol] 2.60 10*3/uL Normal 1.45-7.50 [facility] Comment on above: Order Comment: Speci men Type: BLOOD SPECIMEN Ordering Facility: [facility] Address: [address] [place] [address] Performed By: #### 5 0190-8, 2132-03, 8, 4 #### [facility] CLIA [id number] [address] [place] [address] [place] Neutrophils/100 WBC (Bld) 48.4 % Normal [facility] Comment on above: Order Comment: Speci men Type: BLOOD SPECIMEN Ordering Facility: [facility] Address: [address] [place] [address] Performed By: #### 5 0190-8, 2132-03, 2284-02, 4 #### [facility] CLIA [id number] [address] [place] [address] [place] Nucleated RBC (Bld) [#/Vol] 10*3/uL Normal <0.01 [facility] Comment on above: Order Comment: Speci men Type: BLOOD SPECIMEN Ordering Facility: [facility] Address: [address] [place] [address] Performed By: #### 5 0190-8, 2132-03, 8, 4 #### [facility] CLIA [id number] [address] [place] [address] [place] Nucleated RBC/100 WBC (Bld) [Ratio] 0.0 /100 WBC Normal [facility] Comment on above: Order Comment: Speci men Type: BLOOD SPECIMEN Ordering Facility: [facility] Address: [address] [place] [address] Performed By: #### 5 0190-8, 2132-03, 2284-02, 2275-10 #### [facility] CLIA [id number] [address] [place] [address] [place] Platelet mean volume (Bld) [Entitic vol] 9.3 fL Normal 9.0-12.7 [facility] Comment on above: Order Comment: Speci men Type: BLOOD SPECIMEN Ordering Facility: [facility] Address: [address] [place] [address] Performed By: #### 5 0190-8, 2132-03, 2284-02, 2275-10 #### [facility] CLIA [id number] [address] [place] [address] [place] Platelets (Bld) [#/Vol] 124 10*3/uL Low 150-400 [facility] Comment on above: Order Comment: Speci men Type: BLOOD SPECIMEN Ordering Facility: [facility] Address: [address] [place] [address] Performed By: #### 5 0190-8, 9, 2284-02, 2275-10 #### [facility] CLIA [id number] [address] [place] [address] [place] RBC (Bld) [#/Vol] 3.25 10*6/uL Low 3.90-5.20 [place] Comment on above: Order Comment: Fabricio tapia Type: BLOOD SPECIMEN Ordering Facility: [facility] Address: [address] [place] [address] Performed By: #### 5 0190-8, 2132-9, 2284-8, 2276-4 #### [facility] CLIA [id number] [address] [place] [address] [place] WBC (Bld) [#/Vol] 5.37 10*3/uL Normal 3.70-11.00 [place] Comment on above: Order Comment: Fabricio tapia Type: BLOOD SPECIMEN Ordering Facility: [facility] Address: [address] [place] [address] Performed By: #### 5 0190-8, 2132-9, 2284-8, 2276-4 #### [facility] CLIA [id number] [address] [place] [address] [place] CNOVSPon 08-28-2023 CNOVSP Visit (SP) Office (HEMASA) ANDREI FISH ([id number]) 1950 F Date Time Provider Department 08/28/23 2:45 PM RINKU RAMSEY HEMLAKSHMI During your visit today, we recorded the following information about you: Temperature Pulse Respiration Blood pressure 97.6 degrees 85/minute 16/minute 132/78 Weight 87.3 kg Rinku Ramsey MD 08/28/2023 7:35 PM Signed NAME: Andrei Fish CLINIC NO.: [id number] DATE OF SERVICE: August 28, 2023 (Roxy) Some elements in this clinic note that are critical to medical decision making have been carefully reviewed and included from a prior clinic note dated: July 17, 2023 (Roxy) Additional Clinicians involved in Andrei Fish's care: Dr. Shay, Dr. Deluna DIAGNOSIS: Chronic [...] for B12 or folic acid replacement at [facility] (more content not included)... Normal [facility] Comprehensive metabolic 2000 panelon 08-28-2023 Albumin [Mass/Vol] 3.9 g/dL Normal 3.9-4.9 [facility] Comment on above: Order Comment: Speci men Type: BLOOD SPECIMEN Ordering Facility: [facility] Address: [address] [place] [address] Performed By: #### 5 0190-8, 2132-03, 2284-02, 2275-10 #### [facility] CLIA [id number] [address] [place] [address] [place] ALP [Catalytic activity/Vol] 65 U/L Normal 34-123 [facility] Comment on above: Order Comment: Speci men Type: BLOOD SPECIMEN Ordering Facility: [facility] Address: [address] [place] [address] Performed By: #### 5 0190-8, 2132-03, 2284-02, 4 #### [facility] CLIA [id number] [address] [place] [address] [place] ALT [Catalytic activity/Vol] 19 U/L Normal 7-38 [facility] Comment on above: Order Comment: Speci men Type: BLOOD SPECIMEN Ordering Facility: [facility] Address: [address] [place] [address] Performed By: #### 5 0190-8, 2132-03, 2284-02, 2275-10 #### [facility] CLIA [id number] [address] [place], [place] [address] [place] Anion gap [Moles/Vol] 7 mmol/L Low 9-18 [facility] Comment on above: Order Comment: Speci men Type: BLOOD SPECIMEN Ordering Facility: [facility] Address: [address] [place] [address] Performed By: #### 5 0190-8, 2132-03, 8, 4 #### [facility] CLIA [id number] [address] [place] [address] [place] AST [Catalytic activity/Vol] 27 U/L Normal 13-35 [facility] Comment on above: Order Comment: Speci men Type: BLOOD SPECIMEN Ordering Facility: [facility] Address: [address] [place] [address] Performed By: #### 5 0190-8, 2132-03, 2284-02, 4 #### [facility] CLIA [id number] [address] [place] [address] [place] Bilirubin [Mass/Vol] 0.3 mg/dL Normal 0.2-1.3 [facility] Comment on above: Order Comment: Speci men Type: BLOOD SPECIMEN Ordering Facility: [facility] Address: [address] [place] [address] Performed By: #### 5 0190-8, 2132-03, 2284-02, 2275-10 #### [facility] CLIA [id number] [address] [place] [address] [place] Calcium [Mass/Vol] 10.0 mg/dL Normal 8.5-10.2 [facility] Comment on above: Order Comment: Speci men Type: BLOOD SPECIMEN Ordering Facility: [facility] Address: [address] [place] [address] Performed By: #### 5 0190-8, 2132-03, 2284-02, 4 #### [facility] CLIA [id number] [address] [place], [place] [address] [place] Chloride [Moles/Vol] 106 mmol/L High 97-105 [facility] Comment on above: Order Comment: Speci men Type: BLOOD SPECIMEN Ordering Facility: [facility] Address: [address] [place] [address] Performed By: #### 5 0190-8, 9, 8, 2275-4 #### [facility] CLIA [id number] [address] [place] [address] [place] CO2 [Moles/Vol] 25 mmol/L Normal 22-30 [facility] Comment on above: Order Comment: Speci men Type: BLOOD SPECIMEN Ordering Facility: [facility] Address: [address] [place] [address] Performed By: #### 5 0190-8, 9, 8, 2275-4 #### [facility] CLIA [id number] [address] [place] [address] [place] Creatinine [Mass/Vol] 1.02 mg/dL High 0.58-0.96 [facility] Comment on above: Order Comment: Speci men Type: BLOOD SPECIMEN Ordering Facility: [facility] Address: [address] [place] [address] Performed By: #### 5 0190-8, 9, 8, 2275-4 #### [facility] CLIA [id number] [address] [place] [address] [place] Creatinine and Glomerular filtration rate.predicted panel (S/P/Bld) 59 mL/min/1.73m??? Low >=60 [facility] Comment on above: Order Comment: Speci men Type: BLOOD SPECIMEN Ordering Facility: [facility] Address: [address] [place] [address] Result Comment: Miryam mated Glomerular Filtration Rate [...] accurately reflect actual GFR. Performed By: #### 5 0190-8, 2132-03, 2284-02, 2275-10 #### [facility] CLIA [id number] [address] [place] [address] [place] Glucose [Mass/Vol] 101 mg/dL High 74-99 [facility] Comment on above: Order Comment: Fabricio tapia Type: BLOOD SPECIMEN Ordering Facility: [facility] Address: [address] [place] [address] Result Comment: The [place] Diabetes Association (ADA) provides guidance for cutoff [...] Standards of Medical Care in Diabetes 2016, [place] Diabetes Association. Diabetes Care. 2016.39(Suppl 1). Performed By: #### 5 0190-8, 2132-03, 2284-02, 2275-10 #### [facility] CLIA [id number] [address] [place], [place] [address] [place] Potassium [Moles/Vol] 4.2 mmol/L Normal 3.7-5.1 [facility] Comment on above: Order Comment: Fabricio tapia Type: BLOOD SPECIMEN Ordering Facility: [facility] Address: [address] [place] [address] Performed By: #### 5 0190-8, 2132-03, 2284-02, 2275-10 #### [facility] CLIA [id number] [address] [place] [address] [place] Protein [Mass/Vol] 7.5 g/dL Normal 6.3-8.0 [facility] Comment on above: Order Comment: Speci men Type: BLOOD SPECIMEN Ordering Facility: [facility] Address: [address] [place] [address] Performed By: #### 5 0190-8, 9, 8, 4 #### [facility] CLIA [id number] [address] [place] [address] [place] Sodium [Moles/Vol] 138 mmol/L Normal 136-144 [facility] Comment on above: Order Comment: Speci men Type: BLOOD SPECIMEN Ordering Facility: [facility] Address: [address] [place] [address] Performed By: #### 5 0190-8, 2132-03, 8, 2275-10 #### [facility] CLIA [id number] [address] [place] [address] [place] Urea nitrogen [Mass/Vol] 25 mg/dL High 7-21 [facility] Comment on above: Order Comment: Speci men Type: BLOOD SPECIMEN Ordering Facility: [facility] Address: [address] [place] [address] Performed By: #### 5 0190-8, 2132-03, 8, 2275-10 #### [facility] CLIA [id number] [address] [place] [address] [place] Ferritin SerPl-mCncon 2023 Ferritin [Mass/Vol] 93.1 ng/mL Normal 14.7-205.1 [place] Comment on above: Order Comment: Speci men Type: BLOOD SPECIMEN Ordering Facility: [facility] Address: [address] [place] [address] Performed By: #### 2 132-9, 65784-3, 8, 4 #### [facility] CLIA [id number] [address] [place] [address] [place] Folate SerPl-mCncon 08-28-19 Folate [Mass/Vol] 7.3 ng/mL Normal >4.7 [facility] Comment on above: Order Comment: Speci men Type: BLOOD SPECIMEN Ordering Facility: [facility] Address: [address] [place] [address] Performed By: #### 2 132-9, 29631-0, 2284-8, 2276-4 #### [facility] CLIA [id number] [address] [place] [address] [place] Iron and Iron binding capaci ty panelon 08-28-2023 Iron [Mass/Vol] 50 ug/dL Normal 41-186 [facility] Comment on above: Order Comment: Speci men Type: BLOOD SPECIMEN Ordering Facility: [facility] Address: [address] [place] [address] Performed By: #### 2 132-9, 39365-9, 2284-8, 2276-4 #### [facility] CLIA [id number] [address] [place] [address] [place] Iron binding capacity [Mass/Vol] 362 ug/dL Normal 232-386 [facility] Comment on above: Order Comment: Speci men Type: BLOOD SPECIMEN Ordering Facility: [facility] Address: [address] [place] [address] Performed By: #### 2 132-9, 22353-0, 2284-8, 2276-4 #### [facility] CLIA [id number] [address] [place] [address] [place] Iron/TIBC [Molar ratio] 13.8 % Low 15.0-57.0 [facility] Comment on above: Order Comment: Speci men Type: BLOOD SPECIMEN Ordering Facility: [facility] Address: [address] [place] [address] Performed By: #### 2 132-9, 96726-4, 2284-8, 2276-4 #### [facility] CLIA [id number] [address] [place] [address] [place] Vit B12 [facility] Cobalamin (Vitamin B12) [Mass/Vol] 437 pg/mL Normal 232-1245 [facility] Comment on above: Order Comment: Speci men Type: BLOOD SPECIMEN Ordering Facility: [facility] Address: [address] [place] [address] Performed By: #### 2 132-9, 89033-4, 4-8, 6-4 #### [facility] CLIA [id number] [address] [place] [address] [place] Auditory function testson Right Ear: Mild sensorineural hearing loss from 250 Hz - 500 Hz. 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 Severe mixed hearing loss above 3K Hz [facility] CBC W Auto Differential pane l (Bld)on 07-17-2023 Basophils (Bld) [#/Vol] 10*3/uL Normal <0.11 [facility]: Order Comment: Speci men Type: BLOOD SPECIMEN Ordering Facility: [facility] Address: [address] [place] [address] Performed By: #### 2 132-9, 84161-1, 4-8, 6-4 #### [facility] CLIA [id number] [address] [place] [address] [place] Basophils/100 WBC (Bld) 0.3 % Normal [facility] Comment on above: Order Comment: Speci men Type: BLOOD SPECIMEN Ordering Facility: [facility] Address: [address] [place] [address] Performed By: #### 2 132-9, 52295-6, 4-8, 6-4 #### [facility] CLIA [id number] [address] [place] [address] [place] Differential cell count method Nom (Bld) Auto Normal [facility] Comment on above: Order Comment: Speci men Type: BLOOD SPECIMEN Ordering Facility: [facility] Address: [address] [place] [address] Performed By: #### 2 132-9, 62261-1, 2283-8, 2275-4 #### [facility] CLIA [id number] [address] [place] [address] [place] Eosinophils (Bld) [#/Vol] 0.05 10*3/uL Normal <0.46 [facility] Comment on above: Order Comment: Speci men Type: BLOOD SPECIMEN Ordering Facility: [facility] Address: [address] [place] [address] Performed By: #### 2 132-9, 70507-0, 2283-8, 4 #### [facility] CLIA [id number] [address] [place] [address] [place] Eosinophils/100 WBC (Bld) 0.8 % Normal [facility] Comment on above: Order Comment: Speci men Type: BLOOD SPECIMEN Ordering Facility: [facility] Address: [address] [place] [address] Performed By: #### 2 132-9, 97158-8, 2283-8, 4 #### [facility] CLIA [id number] [address] [place] [address] [place] Erythrocyte distribution width (RBC) [Ratio] 14.1 % Normal 11.5-15.0 [facility] Comment on above: Order Comment: Speci men Type: BLOOD SPECIMEN Ordering Facility: [facility] Address: [address] [place] [address] Performed By: #### 2 132-9, 15156-4, 2283-8, 2275-4 #### [facility] CLIA [id number] [address] [place] [address] [place] Hematocrit (Bld) [Volume fraction] 34.7 % Low 36.0-46.0 [facility] Comment on above: Order Comment: Speci men Type: BLOOD SPECIMEN Ordering Facility: [facility] Address: [address] [place] [address] Performed By: #### 2 132-9, 95130-6, 4-8, 6-4 #### [facility] CLIA [id number] [address] [place] [address] [place] Hemoglobin (Bld) [Mass/Vol] 11.1 g/dL Low 11.5-15.5 [facility] Comment on above: Order Comment: Speci men Type: BLOOD SPECIMEN Ordering Facility: [facility] Address: [address] [place] [address] Performed By: #### 2 132-9, 58614-3, 2283-8, 2275-4 #### [facility] CLIA [id number] [address] [place] [address] [place] Immature granulocytes (Bld) [#/Vol] 10*3/uL Normal <0.10 [facility] Comment on above: Order Comment: Speci men Type: BLOOD SPECIMEN Ordering Facility: [facility] Address: [address] [place] [address] Performed By: #### 2 132-9, 10477-5, 2283-8, 2275-4 #### [facility] CLIA [id number] [address] [place] [address] [place] Immature granulocytes/100 WBC (Bld) 0.2 % Normal [facility] Comment on above: Order Comment: Speci men Type: BLOOD SPECIMEN Ordering Facility: [facility] Address: [address] [place] [address] Performed By: #### 2 132-9, 06637-4, 2283-8, 2275-4 #### [facility] CLIA [id number] [address] [place] [address] [place] Lymphocytes (Bld) [#/Vol] 3.00 10*3/uL Normal 1.00-4.00 [facility] Comment on above: Order Comment: Speci men Type: BLOOD SPECIMEN Ordering Facility: [facility] Address: [address] [place] [address] Performed By: #### 2 132-9, 37852-1, 4-8, 2275-4 #### [facility] CLIA [id number] [address] [place] [address] [place] Lymphocytes/100 WBC (Bld) 49.4 % Normal [facility] Comment on above: Order Comment: Speci men Type: BLOOD SPECIMEN Ordering Facility: [facility] Address: [address] [place] [address] Performed By: #### 2 132-9, 06949-1, 4-8, 2275-4 #### [facility] CLIA [id number] [address] [place] [address] [place] MCH (RBC) [Entitic mass] 31.1 pg Normal 26.0-34.0 [facility] Comment on above: Order Comment: Speci men Type: BLOOD SPECIMEN Ordering Facility: [facility] Address: [address] [place] [address] Performed By: #### 2 132-9, 60287-3, 2283-8, 2275-4 #### [facility] CLIA [id number] [address] [place] [address] [place] MCHC (RBC) [Mass/Vol] 32.0 g/dL Normal 30.5-36.0 [facility] Comment on above: Order Comment: Speci men Type: BLOOD SPECIMEN Ordering Facility: [facility] Address: [address] [place] [address] Performed By: #### 2 132-9, 84016-7, 4-8, 2275-4 #### [facility] CLIA [id number] [address] [place] [address] [place] MCV (RBC) [Entitic vol] 97.2 fL Normal 80.0-100.0 [facility]: Order Comment: Speci men Type: BLOOD SPECIMEN Ordering Facility: [facility] Address: [address] [place] [address] Performed By: #### 2 132-9, 62202-4, 2284-8, 2276-4 #### [facility] CLIA [id number] [address] [place] [address] [place] Monocytes (Bld) [#/Vol] 0.24 10*3/uL Normal <0.87 [facility] Comment on above: Order Comment: Speci men Type: BLOOD SPECIMEN Ordering Facility: [facility] Address: [address] [place] [address] Performed By: #### 2 132-9, 73519-4, 2284-8, 6-4 #### [facility] CLIA [id number] [address] [place] [address] [place] Monocytes/100 WBC (Bld) 4.0 % Normal [facility] Comment on above: Order Comment: Speci men Type: BLOOD SPECIMEN Ordering Facility: [facility] Address: [address] [place] [address] Performed By: #### 2 132-9, 63259-3, 2284-8, 2276-4 #### [facility] CLIA [id number] [address] [place] [address] [place] Neutrophils (Bld) [#/Vol] 2.75 10*3/uL Normal 1.45-7.50 [facility] Comment on above: Order Comment: Speci men Type: BLOOD SPECIMEN Ordering Facility: [facility] Address: [address] [place] [address] Performed By: #### 2 132-9, 81296-5, 2284-8, 2276-4 #### [facility] CLIA [id number] [address] [place] [address] [place] Neutrophils/100 WBC (Bld) 45.3 % Normal [facility] Comment on above: Order Comment: Speci men Type: BLOOD SPECIMEN Ordering Facility: [facility] Address: [address] [place] [address] Performed By: #### 2 132-9, 03764-8, 2284-8, 2276-4 #### [facility] CLIA [id number] [address] [place] [address] [place] Nucleated RBC (Bld) [#/Vol] 10*3/uL Normal <0.01 [facility] Comment on above: Order Comment: Speci men Type: BLOOD SPECIMEN Ordering Facility: [facility] Address: [address] [place] [address] Performed By: #### 2 132-9, 32117-0, 2284-8, 2276-4 #### [facility] CLIA [id number] [address] [place] [address] [place] Nucleated RBC/100 WBC (Bld) [Ratio] 0.0 /100 WBC Normal [facility] Comment on above: Order Comment: Speci men Type: BLOOD SPECIMEN Ordering Facility: [facility] Address: [address] [place] [address] Performed By: #### 2 132-9, 15939-0, 2284-8, 2276-4 #### [facility] CLIA [id number] [address] [place] [address] [place] Platelet mean volume (Bld) [Entitic vol] 9.3 fL Normal 9.0-12.7 [facility] Comment on above: Order Comment: Speci men Type: BLOOD SPECIMEN Ordering Facility: [facility] Address: [address] [place] [address] Performed By: #### 2 132-9, 19896-0, 2284-8, 2276-4 #### [facility] CLIA [id number] [address] [place] [address] [place] Platelets (Bld) [#/Vol] 148 10*3/uL Low 150-400 [facility] Comment on above: Order Comment: Fabricio tapia Type: BLOOD SPECIMEN Ordering Facility: [facility] Address: [address] [place] [address] Performed By: #### 2 132-9, 40970-8, 2284-8, 2276-4 #### [facility] CLIA [id number] [address] [place] [address] [place] RBC (Bld) [#/Vol] 3.57 10*6/uL Low 3.90-5.20 [place] Comment on above: Order Comment: Virgilioi willie Type: BLOOD SPECIMEN Ordering Facility: [facility] Address: [address] [place] [address] Performed By: #### 2 132-9, 91997-2, 2284-8, 2276-4 #### [facility] CLIA [id number] [address] [place] [address] [place] WBC (Bld) [#/Vol] 6.07 10*3/uL Normal 3.70-11.00 [place] Comment on above: Order Comment: Fabricio tapia Type: BLOOD SPECIMEN Ordering Facility: [facility] Address: [address] [place] [address] Performed By: #### 2 132-9, 97887-4, 2284-8, 2276-4 #### [facility] CLIA [id number] [address] [place] [address] [place] CNOVSPon 07-17-2023 CNOVSP Visit (SP) Office (HEMASA) ANDREI FISH ([id number]) 1950 F Date Time Provider Department 07/17/23 [...] MD 07/17/2023 8:30 PM Signed NAME: Andrei Fish CLINIC NO.: [id number] DATE OF SERVICE: July 17, 2023 (Roxy) Some elements in this clinic note that are critical to medical decision making have been carefully reviewed and included from a prior clinic note dated: June 05, 2023 (Mary). Additional Clinicians involved in Andrei Fish's care: Dr. Shay, Dr. Deluna DIAGNOSIS: Chronic [...] 2017 - Rituxan X 4 Updated Visit, July [...] scan at (more content not included)... Normal [facility] Comprehensive metabolic 2000 panelon 07-17-2023 Albumin [Mass/Vol] 4.0 g/dL Normal 3.9-4.9 [facility] Comment on above: Order Comment: Fabricio tapia Type: BLOOD SPECIMEN Ordering Facility: [facility] Address: [address] [place] [address] Performed By: #### 2 132-9, 35035-7, 2284-8, 2276-4 #### [facility] CLIA [id number] [address] [place] [address] [place] ALP [Catalytic activity/Vol] 77 U/L Normal 34-123 [facility] Comment on above: Order Comment: Fabricio tapia Type: BLOOD SPECIMEN Ordering Facility: [facility] Address: [address] [place] [address] Performed By: #### 2 132-9, 15583-5, 2284-8, 2276-4 #### [facility] CLIA [id number] [address] [place] [address] [place] ALT [Catalytic activity/Vol] 17 U/L Normal 7-38 [facility] Comment on above: Order Comment: Speci men Type: BLOOD SPECIMEN Ordering Facility: [facility] Address: [address] [place] [address] Performed By: #### 2 132-9, 60915-2, 2284-8, 6-4 #### [facility] CLIA [id number] [address] [place] [address] [place] Anion gap [Moles/Vol] 8 mmol/L Low 9-18 [facility] Comment on above: Order Comment: Speci men Type: BLOOD SPECIMEN Ordering Facility: [facility] Address: [address] [place] [address] Performed By: #### 2 132-9, 56185-3, 2283-8, 2275-4 #### [facility] CLIA [id number] [address] [place] [address] [place] AST [Catalytic activity/Vol] 26 U/L Normal 13-35 [facility] Comment on above: Order Comment: Speci men Type: BLOOD SPECIMEN Ordering Facility: [facility] Address: [address] [place] [address] Performed By: #### 2 132-9, 18936-9, 4-8, 2275-4 #### [facility] CLIA [id number] [address] [place] [address] [place] Bilirubin [Mass/Vol] 0.4 mg/dL Normal 0.2-1.3 [facility] Comment on above: Order Comment: Speci men Type: BLOOD SPECIMEN Ordering Facility: [facility] Address: [address] [place] [address] Performed By: #### 2 132-9, 79166-2, 2284-8, 2275-4 #### [facility] CLIA [id number] [address] [place] [address] [place] Calcium [Mass/Vol] 9.7 mg/dL Normal 8.5-10.2 [facility] Comment on above: Order Comment: Speci men Type: BLOOD SPECIMEN Ordering Facility: [facility] Address: [address] [place] [address] Performed By: #### 2 132-9, 49201-3, 2284-8, 6-4 #### [facility] CLIA [id number] [address] [place] [address] [place] Chloride [Moles/Vol] 106 mmol/L High 97-105 [facility] Comment on above: Order Comment: Speci men Type: BLOOD SPECIMEN Ordering Facility: [facility] Address: [address] [place] [address] Performed By: #### 2 132-9, 07968-2, 4-8, 2275-4 #### [facility] CLIA [id number] [address] [place] [address] [place] CO2 [Moles/Vol] 24 mmol/L Normal 22-30 [facility] Comment on above: Order Comment: Speci men Type: BLOOD SPECIMEN Ordering Facility: [facility] Address: [address] [place] [address] Performed By: #### 2 132-9, 01822-1, 4-8, 2275-4 #### [facility] CLIA [id number] [address] [place] [address] [place] Creatinine [Mass/Vol] 1.32 mg/dL High 0.58-0.96 [facility] Comment on above: Order Comment: Speci men Type: BLOOD SPECIMEN Ordering Facility: [facility] Address: [address] [place] [address] Performed By: #### 2 132-9, 81769-4, 2284-8, 6-4 #### [facility] CLIA [id number] [address] [place] [address] [place] Creatinine and Glomerular filtration rate.predicted panel (S/P/Bld) 43 mL/min/1.73m??? Low >=60 [facility] Comment on above: Order Comment: Fabricio tapia Type: BLOOD SPECIMEN Ordering Facility: [facility] Address: [address] [place] [address] Result Comment: Miryam mated Glomerular Filtration Rate [...] reflect actual GFR. Performed By: #### 2 132-9, 30124-8, 2283-8, 6-4 #### [facility] CLIA [id number] [address] [place] [address] [place] Glucose [Mass/Vol] 119 mg/dL High 74-99 [facility] Comment on above: Order Comment: Fabricio tapia Type: BLOOD SPECIMEN Ordering Facility: [facility] Address: [address] [place] [address] Result Comment: The [place] Diabetes Association (ADA) provides guidance for cutoff [...] Standards of Medical Care in Diabetes 2016, [place] Diabetes Association. Diabetes Care. 2016.39(Suppl 1). Performed By: #### 2 132-9, 48641-1, 2283-8, 6-4 #### [facility] CLIA [id number] [address] [place] [address] [place] Potassium [Moles/Vol] 4.4 mmol/L Normal 3.7-5.1 [facility] Comment on above: Order Comment: Speci men Type: BLOOD SPECIMEN Ordering Facility: [facility] Address: [address] [place] [address] Performed By: #### 2 132-9, 08746-7, 4-8, 6-4 #### [facility] CLIA [id number] [address] [place] [address] [place] Protein [Mass/Vol] 7.6 g/dL Normal 6.3-8.0 [facility] Comment on above: Order Comment: Speci men Type: BLOOD SPECIMEN Ordering Facility: [facility] Address: [address] [place] [address] Performed By: #### 2 132-9, 61601-7, 2283-8, 2275-4 #### [facility] CLIA [id number] [address] [place] [address] [place] Sodium [Moles/Vol] 138 mmol/L Normal 136-144 [facility] Comment on above: Order Comment: Speci men Type: BLOOD SPECIMEN Ordering Facility: [facility] Address: [address] [place] [address] Performed By: #### 2 132-9, 58740-7, 2283-8, 2275-4 #### [facility] CLIA [id number] [address] [place] [address] [place] Urea nitrogen [Mass/Vol] 35 mg/dL High 7-21 [facility] Comment on above: Order Comment: Speci men Type: BLOOD SPECIMEN Ordering Facility: [facility] Address: [address] [place] [address] Performed By: #### 2 132-9, 08292-5, 2283-8, 2275-4 #### [facility] CLIA [id number] [address] [place] [address] [place] Ferritin SerPl-mCncon 2023 Ferritin [Mass/Vol] 71.8 ng/mL Normal 14.7-205.1 [place] Comment on above: Order Comment: Speci men Type: BLOOD SPECIMEN Ordering Facility: [facility] Address: [address] [place] [address] Performed By: #### 2 132-9, 21984-9, 2284-8, 2276-4 #### [facility] CLIA [id number] [address] [place] [address] [place] Folate SerPl-ncon 07-17-19 Folate [Mass/Vol] 8.6 ng/mL Normal >4.7 [facility] Comment on above: Order Comment: Speci men Type: BLOOD SPECIMEN Ordering Facility: [facility] Address: [address] [place] [address] Performed By: #### 2 132-9, 92773-3, 2284-8, 2276-4 #### [facility] CLIA [id number] [address] [place] [address] [place] Iron and Iron binding capaci panel 07-17-2023 Iron [Mass/Vol] 66 ug/dL Normal 41-186 [facility] Comment on above: Order Comment: Speci men Type: BLOOD SPECIMEN Ordering Facility: [facility] Address: [address] [place] [address] Performed By: #### 2 132-9, 95232-6, 2284-8, 6-4 #### [facility] CLIA [id number] [address] [place] [address] [place] Iron binding capacity [Mass/Vol] 349 ug/dL Normal 232-386 [facility] Comment on above: Order Comment: Speci men Type: BLOOD SPECIMEN Ordering Facility: [facility] Address: [address] [place] [address] Performed By: #### 2 132-9, 79872-5, 2284-8, 2276-4 #### [facility] CLIA [id number] [address] [place], [place] [address] [place] Iron/TIBC [Molar ratio] 18.9 % Normal 15.0-57.0 [facility] Comment on above: Order Comment: Speci men Type: BLOOD SPECIMEN Ordering Facility: [facility] Address: [address] [place] [address] Performed By: #### 2 132-9, 91755-1, 4-8, 6-4 #### [facility] CLIA [id number] [address] [place], [place] [address] [place] Vit B12 [facility] Cobalamin (Vitamin B12) [Mass/Vol] 486 pg/mL Normal 232-1245 [facility] Comment on above: Order Comment: Speci men Type: BLOOD SPECIMEN Ordering Facility: [facility] Address: [address] [place] [address] Performed By: #### 2 132-9, 26630-4, 2283-8, 2275-4 #### [facility] CLIA [id number] [address] [place] [address] [place] Dipstick & Microscopicon Dipstick & Microscopic No Unique Property [employer] Other Dipstick and Microscopicon 1 08-29-2022 Appearance (U) Clear Normal Clear [facility] Comment on above: Order Comment: Reaso n for Exam HTN (hypertension);Lupus;Chronic ITP (idiopathic thrombocyto Performed By: #### C BCNO #### [facility] [address] [place] [address] [place] Bacteria,Urine None Seen Normal None Seen [facility] Comment on above: Order Comment: Reaso n for Exam HTN (hypertension);Lupus;Chronic ITP (idiopathic thrombocyto Performed By: #### C BCNO #### [facility] [address] [place] [address] [place] Bilirubin,Urine Negative Normal Negative [facility] Comment on above: Order Comment: Reaso n for Exam HTN (hypertension);Lupus;Chronic ITP (idiopathic thrombocyto Performed By: #### C BCNO #### [facility] [address] Color (U) Yellow Normal Yellow [facility] Comment on above: Order Comment: Reaso n for Exam HTN (hypertension);Lupus;Chronic ITP (idiopathic thrombocyto Performed By: #### C BCNO #### [facility] [address] Glucose Ql (U) Normal Normal Normal [facility] Comment on above: Order Comment: Reaso n for Exam HTN (hypertension);Lupus;Chronic ITP (idiopathic thrombocyto Performed By: #### C BCNO #### [address] Hyaline Casts,Urine 0-8 Normal 0-8 [facility] Comment on above: Order Comment: Reaso n for Exam HTN (hypertension);Lupus;Chronic ITP (idiopathic thrombocyto Result Comment: PERF ORMED BY: [place] [address] PATHOLOGIST PANTRY CHEF IVORY BORRERO M.D. Performed By: #### C BCNO #### [address] Ketones Ql (U) Negative Normal Negative [facility] Comment on above: Order Comment: Reaso n for Exam HTN (hypertension);Lupus;Chronic ITP (idiopathic thrombocyto Performed By: #### C BCNO #### [place] [address] [place] Leukocyte esterase Test strip Ql (U) Negative Normal Negative [facility] Comment on above: Order Comment: Reaso n for Exam HTN (hypertension);Lupus;Chronic ITP (idiopathic thrombocyto Performed By: #### C BCNO #### [place] [address] [place] Nitrite,Urine Negative Normal Negative [facility] Comment on above: Order Comment: Reaso n for Exam HTN (hypertension);Lupus;Chronic ITP (idiopathic thrombocyto Performed By: #### C BCNO #### [place] [address] [place] Occult Blood,Urine Negative Normal Negative [facility] Comment on above: Order Comment: Reaso n for Exam HTN (hypertension);Lupus;Chronic ITP (idiopathic thrombocyto Performed By: #### C BCNO #### [facility] [address] pH (U) 5.5 [pH] Normal 5.0-9.0 [facility] Comment on above: Order Comment: Reaso n for Exam HTN (hypertension);Lupus;Chronic ITP (idiopathic thrombocyto Performed By: #### C BCNO #### [facility] [address] Protein,Urine Negative Normal Negative [facility] Comment on above: Order Comment: Reaso n for Exam HTN (hypertension);Lupus;Chronic ITP (idiopathic thrombocyto Performed By: #### C BCNO #### [place] [address] [place] RBC,Urine 3-4 Normal 0-4 [facility] Comment on above: Order Comment: Reaso n for Exam HTN (hypertension);Lupus;Chronic ITP (idiopathic thrombocyto Performed By: #### C BCNO #### [place] [address] [place] Specificy Backus,Urine 1.019 Normal 1.001-1.030 [facility] Comment on above: Order Comment: Reaso n for Exam HTN (hypertension);Lupus;Chronic ITP (idiopathic thrombocyto Performed By: #### C BCNO #### [facility] [address] [place] [address] [place] Squamous Epithelial Cell,Urine 3-4 High 0-2 [facility] Comment on above: Order Comment: Reaso n for Exam HTN (hypertension);Lupus;Chronic ITP (idiopathic thrombocyto Performed By: #### C BCNO #### [place] [address] [place] Urobilinogen,Urine Normal Normal Normal [facility] Comment on above: Order Comment: Reaso n for Exam HTN (hypertension);Lupus;Chronic ITP (idiopathic thrombocyto Performed By: #### C BCNO #### [address] [place] [address] [place] WBC LM.HPF (Urine sed) [#/Area] 0 /[HPF] Normal 0-4 [facility] Comment on above: Order Comment: Reaso n for Exam HTN (hypertension);Lupus;Chronic ITP (idiopathic thrombocyto Performed By: #### C BCNO #### [facility] [id number] [facility] Ferritinon 06-28-2023 Ferritin [Mass/Vol] 51.4484529 ng/mL Normal 11.0 -306.8 ng/mL [facility] [employer] Other Ferritin [Mass/Vol] 51.6 ng/mL Normal 11.0-306.8 [facility] Comment on above: Order Comment: Reaso n for Exam HTN (hypertension);Lupus;Chronic ITP (idiopathic thrombocyto Performed By: #### C BCNO, RENAL, MG, [id number], TRAN, PROCRERAT, PTH, URIC #### [facility] [address] Hemogram CBC Without Diffon 06-28-2023 Erythrocyte distribution width (RBC) [Ratio] 15.200 % Normal 11.9-15.3 % [employer] Other Hematocrit (Bld) [Volume fraction] 32.300 % Low 34.0-46.4 % [employer] Other Hemoglobin (Bld) [Mass/Vol] 10.739361 g/dL Low 11.8-15.4 g/dL [employer] Other MCH (RBC) [Entitic mass] 31.8000 pg Normal 24.7-34.3 pg [employer] Other MCV (RBC) [Entitic vol] 96.6000 fL Normal 80-100 fL [employer] Other Platelet mean volume (Bld) [Entitic vol] 8.3000 fL Normal 6.3-10.7 fL [employer] Other WBC (Bld) [#/Vol] 4.418385198 10*3/uL Normal 3.8 -11.6 10*3/uL [facility] [employer] Other Hemogram CBC Without Diff 32.9 g/dL Normal 32.0-35.0 g/dL [facility] [employer] Other Erythrocyte distribution width (RBC) [Ratio] 15.2 % Normal 11.9-15.3 [facility] Comment on above: Order Comment: Reaso n for Exam HTN (hypertension);Lupus;Chronic ITP (idiopathic thrombocyto Performed By: #### C BCNO, RENAL, MG, [id number], TRAN, PROCRERAT, PTH, URIC #### [facility] [address] Hematocrit (Bld) [Volume fraction] 32.3 % Low 34.0-46.4 [facility] Comment on above: Order Comment: Reaso n for Exam HTN (hypertension);Lupus;Chronic ITP (idiopathic thrombocyto Performed By: #### C BCNO, RENAL, MG, [id number], TRAN, PROCRERAT, PTH, URIC #### [facility] [address] Hemoglobin (Bld) [Mass/Vol] 10.6 g/dL Low 11.8-15.4 [facility] Comment on above: Order Comment: Reaso n for Exam HTN (hypertension);Lupus;Chronic ITP (idiopathic thrombocyto Performed By: #### C BCNO, RENAL, MG, [id number], TRAN, PROCRERAT, PTH, URIC #### [facility] [address] MCH (RBC) [Entitic mass] 31.8 pg Normal 24.7-34.3 [facility] Comment on above: Order Comment: Reaso n for Exam HTN (hypertension);Lupus;Chronic ITP (idiopathic thrombocyto Performed By: #### C BCNO, RENAL, MG, [id number], TRAN, PROCRERAT, PTH, URIC #### [facility] [address] MCV (RBC) [Entitic vol] 96.6 fL Normal 80-100 [facility] Comment on above: Order Comment: Reaso n for Exam HTN (hypertension);Lupus;Chronic ITP (idiopathic thrombocyto Performed By: #### C BCNO, RENAL, MG, [id number], TRAN, PROCRERAT, PTH, URIC #### [facility] [address] Mean Corpuscular HGB Conc 32.9 g/dL Normal 32.0-35.0 [facility] Comment on above: Order Comment: Reaso n for Exam HTN (hypertension);Lupus;Chronic ITP (idiopathic thrombocyto Performed By: #### C BCNO, RENAL, MG, [id number], TRAN, PROCRERAT, PTH, URIC #### [facility] [address] [place] [address] Platelet mean volume (Bld) [Entitic vol] 8.3 fL Normal 6.3-10.7 [facility] Comment on above: Order Comment: Reaso n for Exam HTN (hypertension);Lupus;Chronic ITP (idiopathic thrombocyto Result Comment: PERF ORMED BY: [place] [address] PATHOLOGIST PANTRY CHEF IVORY BORRERO M.D. Performed By: #### C BCNO, RENAL, MG, [id number], TRAN, PROCRERAT, PTH, URIC #### [address] Platelets (Bld) [#/Vol] 161 10*3/uL Normal 150-450 [employer] Other Comment on above: Order Comment: Reaso n for Exam HTN (hypertension);Lupus;Chronic ITP (idiopathic thrombocyto Performed By: #### C BCNO, RENAL, MG, [id number], TRAN, PROCRERAT, PTH, URIC #### [facility] [address] [place] [address] RBC (Bld) [#/Vol] 3.34 10*6/uL Low 3.60-5.00 [employer] Other Comment on above: Order Comment: Reaso n for Exam HTN (hypertension);Lupus;Chronic ITP (idiopathic thrombocyto Performed By: #### C BCNO, RENAL, MG, [id number], TRAN, PROCRERAT, PTH, URIC #### [facility] [address] WBC (Bld) [#/Vol] 4.7 10*3/uL Normal 3.8-11.6 [facility] Comment on above: Order Comment: Reaso n for Exam HTN (hypertension);Lupus;Chronic ITP (idiopathic thrombocyto Performed By: #### C BCNO, RENAL, MG, [id number], RTAN, PROCRERAT, PTH, URIC #### [facility] [address] Magnesiumon 06-28-2023 Magnesium [Mass/Vol] 2.7933919 mg/dL Normal 1.9- 2.7 mg/dL [facility] [employer] Other Magnesium [Mass/Vol] 2.5 mg/dL Normal 1.9-2.7 [facility] Comment on above: Order Comment: Reaso n for Exam HTN (hypertension);Lupus;Chronic ITP (idiopathic thrombocyto Performed By: #### C BCNO, RENAL, MG, [id number], TRAN, PROCRERAT, PTH, URIC #### [id number] [facility] Parathyroid Hormone Intacton 06-28-2023 Parathyroid Hormone Intact 41.9 pg/mL Normal 12-88 pg/mL [facility] [employer] Other Parathyroid Hormone Intact 41.9 pg/mL Normal 12-88 [facility] Comment on above: Order Comment: Reaso n for Exam HTN (hypertension);Lupus;Chronic ITP (idiopathic thrombocyto Result Comment: PERF ORMED BY: [place] [address] PATHOLOGIST PANTRY CHEF IVORY BORRERO M.D. Performed By: #### C BCNO, RENAL, MG, [id number], TRAN, PROCRERAT, PTH, URIC #### [facility] [address] Protein Creat Ratio Ur Rando mon 12-20-2023 Albumin Test strip detection limit <= 20 mg/L (U) [Mass/Vol] 9 mg/dL Normal 0-9 mg/dL [employer] Other Protein Creat Ratio Ur Random 96.0 mg/dL High 11.0-20.0 mg/dL [facility] [employer] Other Protein Creat Ratio Ur Random 94 mg/g{Cre} Normal 0-200 mg/g{Cre} [facility] [employer] Other Creatinine, Urine (Random) 96.0 mg/dL High 11.0-20.0 [facility] Comment on above: Order Comment: Reaso n for Exam HTN (hypertension);Lupus;Chronic ITP (idiopathic thrombocyto Performed By: #### C BCNO #### [facility] [address] Protein (U) [Mass/Vol] 9 mg/dL Normal 0-9 [facility] Comment on above: Order Comment: Reaso n for Exam HTN (hypertension);Lupus;Chronic ITP (idiopathic thrombocyto Performed By: #### C BCNO #### [facility] [address] Urine Protein/Creatinine Ratio 94 mg/g{Cre} Normal 0-200 [facility] Comment on above: Order Comment: Reaso n for Exam HTN (hypertension);Lupus;Chronic ITP (idiopathic thrombocyto Result Comment: PERF ORMED BY: [place] [address] PATHOLOGIST PANTRY CHEF IVORY BORRERO M.D. Performed By: #### C BCNO #### [facility] [address] Renal Function Panelon 06-28 Albumin [Mass/Vol] 3.944566 g/dL Normal 3.5-5.7 g/dL [facility] [employer] Other Calcium [Mass/Vol] 9.0710301 mg/dL Normal 8.6-10 .3 mg/dL [employer] Other CO2 [Moles/Vol] 26.51190764 mmol/L Normal 21.0-3 1.0 mmol/L [employer] Other Creatinine [Mass/Vol] 1.64549583 mg/dL Normal 0. 60-1.20 mg/dL [employer] Other Phosphate [Mass/Vol] 3.1965792 mg/dL Normal 2.5- 4.5 mg/dL [employer] Other Potassium [Moles/Vol] 4.80546320 mmol/L Normal 3 .5-5.1 mmol/L [employer] Other Albumin [Mass/Vol] 3.7 g/dL Normal 3.5-5.7 [facility] Comment on above: Order Comment: Reaso n for Exam HTN (hypertension);Lupus;Chronic ITP (idiopathic thrombocyto Performed By: #### C BCNO, RENAL, MG, [id number], TRAN, PROCRERAT, PTH, URIC #### [facility] [id number] [facility] Anion gap [Moles/Vol] 10.5 mmol/L Normal 6.0-15.0 [facility] Comment on above: Order Comment: Reaso n for Exam HTN (hypertension);Lupus;Chronic ITP (idiopathic thrombocyto Performed By: #### C BCNO, RENAL, MG, [id number], TRAN, PROCRERAT, PTH, URIC #### [facility] [address] [place] [address] [place] Calcium [Mass/Vol] 9.2 mg/dL Normal 8.6-10.3 [facility] Comment on above: Order Comment: Reaso n for Exam HTN (hypertension);Lupus;Chronic ITP (idiopathic thrombocyto Performed By: #### C BCNO, RENAL, MG, [id number], TRAN, PROCRERAT, PTH, URIC #### [facility] [address] [place] [address] [place] Chloride [Moles/Vol] 108 mmol/L High 98-107 [employer] Other Comment on above: Order Comment: Reaso n for Exam HTN (hypertension);Lupus;Chronic ITP (idiopathic thrombocyto Performed By: #### C BCNO, RENAL, MG, [id number], TRAN, PROCRERAT, PTH, URIC #### [facility] [address] [place] [address] [place] CO2 [Moles/Vol] 26.1 mmol/L Normal 21.0-31.0 [facility] Comment on above: Order Comment: Reaso n for Exam HTN (hypertension);Lupus;Chronic ITP (idiopathic thrombocyto Performed By: #### C BCNO, RENAL, MG, [id number], TRAN, PROCRERAT, PTH, URIC #### [facility] [address] [place] [address] [facility] Creatinine [Mass/Vol] 1.13 mg/dL Normal 0.60-1.[address] [facility] Comment on above: Order Comment: Reaso n for Exam HTN (hypertension);Lupus;Chronic ITP (idiopathic thrombocyto Performed By: #### C BCNO, RENAL, MG, [id number], TRAN, PROCRERAT, PTH, URIC #### [facility] [address] [place] [address] [facility] GFR/1.73 sq M.predicted MDRD (S/P/Bld) [Vol rate/Area] 51.692 mL/min/{1.73_m2} Normal [facility] [employer] Other Comment on above: Order Comment: Reaso n for Exam HTN (hypertension);Lupus;Chronic ITP (idiopathic thrombocyto Performed By: #### C BCNO, RENAL, MG, [id number], TRAN, PROCRERAT, PTH, URIC #### [facility] [address] [place] [address] [facility] Glucose [Mass/Vol] 116 mg/dL High 70-100 [employer] Other Comment on above: Order Comment: Reaso n for Exam HTN (hypertension);Lupus;Chronic ITP (idiopathic thrombocyto Result Comment: [facility] Glucose Reference Range is dependent on time and content of last meal. Glucose of more than 200 mg/dL in a nonstressed, ambulatory subject supports the diagnosis of Diabetes Mellitus. ADA recommended reference range Performed By: #### C BCNO, RENAL, MG, [id number], TRAN, PROCRERAT, PTH, URIC #### [facility] [address] Phosphate [Mass/Vol] 3.1 mg/dL Normal 2.5-4.5 [facility] Comment on above: Order Comment: Reaso n for Exam HTN (hypertension);Lupus;Chronic ITP (idiopathic thrombocyto Performed By: #### C BCNO, RENAL, MG, [id number], TRAN, PROCRERAT, PTH, URIC #### [facility] [address] Potassium [Moles/Vol] 4.6 mmol/L Normal 3.5-5.[address] [facility] Comment on above: Order Comment: Reaso n for Exam HTN (hypertension);Lupus;Chronic ITP (idiopathic thrombocyto Performed By: #### C BCNO, RENAL, MG, [id number], TRAN, PROCRERAT, PTH, URIC #### [facility] [address] [id number] [facility] Sodium [Moles/Vol] 140 mmol/L Normal 136-145 [employer] Other Comment on above: Order Comment: Reaso n for Exam HTN (hypertension);Lupus;Chronic ITP (idiopathic thrombocyto Performed By: #### C BCNO, RENAL, MG, [id number], TRAN, PROCRERAT, PTH, URIC #### [facility] [address] [id number] [facility] Urea nitrogen [Mass/Vol] 39 mg/dL High 7-25 [facility] [employer] Other Comment on above: Order Comment: Reaso n for Exam HTN (hypertension);Lupus;Chronic ITP (idiopathic thrombocyto Performed By: #### C BCNO, RENAL, MG, [id number], TRAN, PROCRERAT, PTH, URIC #### [facility] [id number] [facility] Uric Acidon 06-28-2023 Urate [Mass/Vol] 6.8752629 mg/dL High 2.3-6.6 mg/dL [facility] [employer] Other Urate [Mass/Vol] 6.8 mg/dL High 2.3-6.6 [facility] Comment on above: Order Comment: Reaso n for Exam HTN (hypertension);Lupus;Chronic ITP (idiopathic thrombocyto Performed By: #### C BCNO, RENAL, MG, [id number], TRAN, PROCRERAT, PTH, URIC #### [facility] [address] [id number] [facility] Vitamin D 25 Hydroxy Totalon 06-28-2023 Vitamin D 25 Hydroxy Total 11.8 ng/mL Low 30-100 ng/mL [facility] [employer] Other Vitamin D 25 Hydroxy Total 11.8 ng/mL Low 30-100 [facility] Comment on above: Order Comment: Reaso n for Exam HTN (hypertension);Lupus;Chronic ITP (idiopathic thrombocyto Result Comment: JENNIFER MIN D STATUS 25(OH)VITAMIN D RANGE (ng/mL) Deficient <20 Insufficient 20 to <30 Sufficient 30 to 100 Reference: Sunita MF,Adarsh NC, Ranulfo VELAZQUEZ, et al. Evaluation,treatment, and prevention of vitamin D deficiency; an Endocrine Society clinical practice guideline. JCEM. 2010; 96(7):1911-30. PERFORMED BY: [place] [address] PATHOLOGIST PANTRY CHEF IVORY BORRERO M.D. Performed By: #### C BCNO #### [facility] [address] [id number] [facility] CBC W Auto Differential pane l (Bld)on 06-05-2023 Basophils (Bld) [#/Vol] 10*3/uL Normal <0.11 [facility] Comment on above: Order Comment: Speci men Type: BLOOD SPECIMEN Ordering Facility: [facility] Address: [address] [place] [address] Performed By: #### 2 132-9, 92040-6, 2284-8, 2276-4 #### [facility] CLIA [id number] [address] [place] [address] [place] Basophils/100 WBC (Bld) 0.2 % Normal [facility] Comment on above: Order Comment: Speci men Type: BLOOD SPECIMEN Ordering Facility: [facility] Address: [address] [place] [address] Performed By: #### 2 132-9, 98064-2, 2284-8, 6-4 #### [facility] CLIA [id number] [address] [place] [address] [place] Differential cell count method Nom (Bld) Auto Normal [facility] Comment on above: Order Comment: Speci men Type: BLOOD SPECIMEN Ordering Facility: [facility] Address: [address] [place] [address] Performed By: #### 2 132-9, 45245-1, 4-8, 6-4 #### [facility] CLIA [id number] [address] [place] [address] [place] Eosinophils (Bld) [#/Vol] 0.04 10*3/uL Normal <0.46 [facility] Comment on above: Order Comment: Speci men Type: BLOOD SPECIMEN Ordering Facility: [facility] Address: [address] [place] [address] Performed By: #### 2 132-9, 25875-0, 4-8, 6-4 #### [facility] CLIA [id number] [address] [place] [address] [place] Eosinophils/100 WBC (Bld) 0.9 % Normal [facility] Comment on above: Order Comment: Speci men Type: BLOOD SPECIMEN Ordering Facility: [facility] Address: [address] [place] [address] Performed By: #### 2 132-9, 33466-2, 2284-8, 2276-4 #### [facility] CLIA [id number] [address] [place] [address] [place] Erythrocyte distribution width (RBC) [Ratio] 14.4 % Normal 11.5-15.0 [facility] Comment on above: Order Comment: Speci men Type: BLOOD SPECIMEN Ordering Facility: [facility] Address: [address] [place] [address] Performed By: #### 2 132-9, 52855-2, 4-8, 6-4 #### [facility] CLIA [id number] [address] [place] [address] [place] Hematocrit (Bld) [Volume fraction] 34.0 % Low 36.0-46.0 [facility] Comment on above: Order Comment: Speci men Type: BLOOD SPECIMEN Ordering Facility: [facility] Address: [address] [place] [address] Performed By: #### 2 132-9, 45415-8, 2283-8, 6-4 #### [facility] CLIA [id number] [address] [place] [address] [place] Hemoglobin (Bld) [Mass/Vol] 11.0 g/dL Low 11.5-15.5 [facility] Comment on above: Order Comment: Speci men Type: BLOOD SPECIMEN Ordering Facility: [facility] Address: [address] [place] [address] Performed By: #### 2 132-9, 35630-3, 2283-8, 6-4 #### [facility] CLIA [id number] [address] [place] [address] [place] Immature granulocytes (Bld) [#/Vol] 10*3/uL Normal <0.10 [facility] Comment on above: Order Comment: Speci men Type: BLOOD SPECIMEN Ordering Facility: [facility] Address: [address] [place] [address] Performed By: #### 2 132-9, 52836-1, 2284-8, 6-4 #### [facility] CLIA [id number] [address] [place] [address] [place] Immature granulocytes/100 WBC (Bld) 0.2 % Normal [facility] Comment on above: Order Comment: Speci men Type: BLOOD SPECIMEN Ordering Facility: [facility] Address: [address] [place] [address] Performed By: #### 2 132-9, 54733-7, 2284-8, 6-4 #### [facility] CLIA [id number] [address] [place] [address] [place] Lymphocytes (Bld) [#/Vol] 2.31 10*3/uL Normal 1.00-4.00 [facility] Comment on above: Order Comment: Speci men Type: BLOOD SPECIMEN Ordering Facility: [facility] Address: [address] [place] [address] Performed By: #### 2 132-9, 25573-5, 4-8, 6-4 #### [facility] CLIA [id number] [address] [place] [address] [place] Lymphocytes/100 WBC (Bld) 49.8 % Normal [facility] Comment on above: Order Comment: Speci men Type: BLOOD SPECIMEN Ordering Facility: [facility] Address: [address] [place] [address] Performed By: #### 2 132-9, 55936-7, 4-8, 6-4 #### [facility] CLIA [id number] [address] [place] [address] [place] MCH (RBC) [Entitic mass] 31.5 pg Normal 26.0-34.0 [facility] Comment on above: Order Comment: Speci men Type: BLOOD SPECIMEN Ordering Facility: [facility] Address: [address] [place] [address] Performed By: #### 2 132-9, 13346-0, 2284-8, 2276-4 #### [facility] CLIA [id number] [address] [place] [address] [place] MCHC (RBC) [Mass/Vol] 32.4 g/dL Normal 30.5-36.0 [facility] Comment on above: Order Comment: Speci men Type: BLOOD SPECIMEN Ordering Facility: [facility] Address: [address] [place] [address] Performed By: #### 2 132-9, 79764-1, 4-8, 6-4 #### [facility] CLIA [id number] [address] [place] [address] [place] MCV (RBC) [Entitic vol] 97.4 fL Normal 80.0-100.0 [facility] Comment on above: Order Comment: Speci men Type: BLOOD SPECIMEN Ordering Facility: [facility] Address: [address] [place] [address] Performed By: #### 2 132-9, 39814-2, 2283-8, 2275-4 #### [facility] CLIA [id number] [address] [place] [address] [place] Monocytes (Bld) [#/Vol] 0.24 10*3/uL Normal <0.87 [facility] Comment on above: Order Comment: Speci men Type: BLOOD SPECIMEN Ordering Facility: [facility] Address: [address] [place] [address] Performed By: #### 2 132-9, 00952-3, 2283-8, 2275-4 #### [facility] CLIA [id number] [address] [place] [address] [place] Monocytes/100 WBC (Bld) 5.2 % Normal [facility] Comment on above: Order Comment: Speci men Type: BLOOD SPECIMEN Ordering Facility: [facility] Address: [address] [place] [address] Performed By: #### 2 132-9, 65720-6, 2283-8, 6-4 #### [facility] CLIA [id number] [address] [place] [address] [place] Neutrophils (Bld) [#/Vol] 2.03 10*3/uL Normal 1.45-7.50 [facility] Comment on above: Order Comment: Speci men Type: BLOOD SPECIMEN Ordering Facility: [facility] Address: [address] [place] [address] Performed By: #### 2 132-9, 51434-3, 2283-8, 2275-4 #### [facility] CLIA [id number] [address] [place] [address] [place] Neutrophils/100 WBC (Bld) 43.7 % Normal [facility] Comment on above: Order Comment: Speci men Type: BLOOD SPECIMEN Ordering Facility: [facility] Address: [address] [place] [address] Performed By: #### 2 132-9, 31961-8, 2283-8, 2275-4 #### [facility] CLIA [id number] [address] [place] [address] [place] Nucleated RBC (Bld) [#/Vol] 10*3/uL Normal <0.01 [facility] Comment on above: Order Comment: Speci men Type: BLOOD SPECIMEN Ordering Facility: [facility] Address: [address] [place] [address] Performed By: #### 2 132-9, 07206-0, 2283-8, 2275-4 #### [facility] CLIA [id number] [address] [place] [address] [place] Nucleated RBC/100 WBC (Bld) [Ratio] 0.0 /100 WBC Normal [facility] Comment on above: Order Comment: Speci men Type: BLOOD SPECIMEN Ordering Facility: [facility] Address: [address] [place] [address] Performed By: #### 2 132-9, 13251-6, 2283-8, 6-4 #### [facility] CLIA [id number] [address] [place] [address] [place] Platelet mean volume (Bld) [Entitic vol] 9.5 fL Normal 9.0-12.7 [facility] Comment on above: Order Comment: Speci men Type: BLOOD SPECIMEN Ordering Facility: [facility] Address: [address] [place] [address] Performed By: #### 2 132-9, 11940-1, 2284-8, 6-4 #### [facility] CLIA [id number] [address] [place], [place] [address] [place] Platelets (Bld) [#/Vol] 137 10*3/uL Low 150-400 [facility] Comment on above: Order Comment: Speci men Type: BLOOD SPECIMEN Ordering Facility: [facility] Address: [address] [place] [address] Performed By: #### 2 132-9, 02769-0, 4-8, 6-4 #### [facility] CLIA [id number] [address] [place] [address] [place] RBC (Bld) [#/Vol] 3.49 10*6/uL Low 3.90-5.20 [place] Comment on above: Order Comment: Speci men Type: BLOOD SPECIMEN Ordering Facility: [facility] Address: [address] [place] [address] Performed By: #### 2 132-9, 75929-0, 4-8, 6-4 #### [facility] CLIA [id number] [address] [place] [address] [place] WBC (Bld) [#/Vol] 4.64 10*3/uL Normal 3.70-11.00 [place] Comment on above: Order Comment: Speci men Type: BLOOD SPECIMEN Ordering Facility: [facility] Address: [address] [place] [address] Performed By: #### 2 132-9, 82252-4, 2284-8, 2276-4 #### [facility] CLIA [id number] [address] [place] [address] [place] CNOVSPon 06-05-2023 CNOVSP Visit (SP) Office ([place]) ANDREI FISH ([id number]) 1950 F Date Time Provider Department 06/05/23 10:00 AM ANA PH[place] During your visit today, we recorded the following information about you: Temperature Pulse Respiration Blood pressure 97 degrees 76/minute 16/minute 152/84 Weight Height 87.3 kg 1.588 m Ana Phoenix PA-C 06/05/2023 11:06 AM Signed NAME: Andrei Fish CLINIC NO.: [id number] DATE OF SERVICE: June 05, 2023 (Mary) (Elements copied from Dr. Ramsey's note dated April 20, 2023, have been reviewed and updated where appropriate, and all reflect current assessment and medical decision making during today's encounter, June 05, 2023) Additional Clinicians involved in Andrei Miranda Fish's care: Dr. Shay, Dr. Deluna CC: [...] having a mammogram and dexa scan at [facility] per her PCP. 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 Overall, she is doing well [...] a follow-up (more content not included)... Normal [facility] Comprehensive metabolic 2000 panelon 06-05-2023 Albumin [Mass/Vol] 3.9 g/dL Normal 3.9-4.9 [facility] Comment on above: Order Comment: Speci men Type: BLOOD SPECIMEN Ordering Facility: [facility] Address: [address] [place] [address] Performed By: #### 2 132-9, 58939-6, 2284-8, 2276-4 #### [facility] CLIA [id number] [address] [place] [address] [place] ALP [Catalytic activity/Vol] 64 U/L Normal 34-123 [facility] Comment on above: Order Comment: Speci men Type: BLOOD SPECIMEN Ordering Facility: [facility] Address: [address] [place] [address] Performed By: #### 2 132-9, 91999-0, 2284-8, 2276-4 #### [facility] CLIA [id number] [address] [place] [address] [place] ALT [Catalytic activity/Vol] 20 U/L Normal 7-38 [facility] Comment on above: Order Comment: Speci men Type: BLOOD SPECIMEN Ordering Facility: [facility] Address: [address] [place] [address] Performed By: #### 2 132-9, 59754-5, 2284-8, 6-4 #### [facility] CLIA [id number] [address] [place] [address] [place] Anion gap [Moles/Vol] 9 mmol/L Normal 9-18 [facility] Comment on above: Order Comment: Speci men Type: BLOOD SPECIMEN Ordering Facility: [facility] Address: [address] [place] [address] Performed By: #### 2 132-9, 31649-1, 2284-8, 6-4 #### [facility] CLIA [id number] [address] [place] [address] [place] AST [Catalytic activity/Vol] 25 U/L Normal 13-35 [facility] Comment on above: Order Comment: Speci men Type: BLOOD SPECIMEN Ordering Facility: [facility] Address: [address] [place] [address] Performed By: #### 2 132-9, 93079-3, 2284-8, 2276-4 #### [facility] CLIA [id number] [address] [place], [place] [address] [place] Bilirubin [Mass/Vol] 0.5 mg/dL Normal 0.2-1.3 [facility] Comment on above: Order Comment: Speci men Type: BLOOD SPECIMEN Ordering Facility: [facility] Address: [address] [place] [address] Performed By: #### 2 132-9, 61272-1, 2284-8, 2276-4 #### [facility] CLIA [id number] [address] [place] [address] [place] Calcium [Mass/Vol] 9.8 mg/dL Normal 8.5-10.2 [facility] Comment on above: Order Comment: Speci men Type: BLOOD SPECIMEN Ordering Facility: [facility] Address: [address] [place] [address] Performed By: #### 2 132-9, 55443-8, 2284-8, 6-4 #### [facility] CLIA [id number] [address] [place] [address] [place] Chloride [Moles/Vol] 107 mmol/L High 97-105 [facility] Comment on above: Order Comment: Speci men Type: BLOOD SPECIMEN Ordering Facility: [facility] Address: [address] [place] [address] Performed By: #### 2 132-9, 21887-5, 2284-8, 6-4 #### [facility] CLIA [id number] [address] [place] [address] [place] CO2 [Moles/Vol] 22 mmol/L Normal 22-30 [facility] Comment on above: Order Comment: Speci men Type: BLOOD SPECIMEN Ordering Facility: [facility] Address: [address] [place] [address] Performed By: #### 2 132-9, 00962-1, 2284-8, 2276-4 #### [facility] CLIA [id number] [address] [place] [address] [place] Creatinine [Mass/Vol] 1.14 mg/dL High 0.58-0.96 [facility] Comment on above: Order Comment: Fabricio tapia Type: BLOOD SPECIMEN Ordering Facility: [facility] Address: [address] [place] [address] Performed By: #### 2 132-9, 74938-5, 2284-8, 2276-4 #### [facility] CLIA [id number] [address] [place] [address] [place] Creatinine and Glomerular filtration rate.predicted panel (S/P/Bld) 51 mL/min/1.73m??? Low >=60 [facility] Comment on above: Order Comment: Fabricio tapia Type: BLOOD SPECIMEN Ordering Facility: [facility] Address: [address] [place] [address] Result Comment: Miryam mated Glomerular Filtration Rate [...] reflect actual GFR. Performed By: #### 2 132-9, 70654-7, 2284-8, 2276-4 #### [facility] CLIA [id number] [address] [place] [address] [place] Glucose [Mass/Vol] 113 mg/dL High 74-99 [facility] Comment on above: Order Comment: Fabricio tapia Type: BLOOD SPECIMEN Ordering Facility: [facility] Address: [address] [place] [address] Result Comment: The [place] Diabetes Association (ADA) provides guidance for cutoff [...] Standards of Medical Care in Diabetes 2016, [place] Diabetes Association. Diabetes Care. 2016.39(Suppl 1). Performed By: #### 2 132-9, 58072-2, 2284-8, 2276-4 #### [facility] CLIA [id number] [address] [place] [address] [place] Potassium [Moles/Vol] 4.5 mmol/L Normal 3.7-5.1 [facility] Comment on above: Order Comment: Fabricio tapia Type: BLOOD SPECIMEN Ordering Facility: [facility] Address: [address] [place] [address] Performed By: #### 2 132-9, 90826-5, 4-8, 6-4 #### [facility] CLIA [id number] [address] [place] [address] [place] Protein [Mass/Vol] 7.5 g/dL Normal 6.3-8.0 [facility] Comment on above: Order Comment: Fabricio tapia Type: BLOOD SPECIMEN Ordering Facility: [facility] Address: [address] [place] [address] Performed By: #### 2 132-9, 87673-1, 4-8, 6-4 #### [facility] CLIA [id number] [address] [place] [address] [place] Sodium [Moles/Vol] 138 mmol/L Normal 136-144 [facility] Comment on above: Order Comment: Fabricio tapia Type: BLOOD SPECIMEN Ordering Facility: [facility] Address: [address] [place] [address] Performed By: #### 2 132-9, 14083-1, 2284-8, 2276-4 #### [facility] CLIA [id number] [address] [place] [address] [place] Urea nitrogen [Mass/Vol] 39 mg/dL High 7-21 [facility] Comment on above: Order Comment: Speci men Type: BLOOD SPECIMEN Ordering Facility: [facility] Address: [address] [place] [address] Performed By: #### 2 132-9, 46182-3, 4-8, 6-4 #### [facility] CLIA [id number] [address] [place] [address] [place] Ferritin SerPl-mCncon 2022 Ferritin [Mass/Vol] 104.0 ng/mL Normal 14.7-205.1 [facility] Comment on above: Order Comment: Speci men Type: BLOOD SPECIMEN Ordering Facility: [facility] Address: [address] [place] [address] Performed By: #### 2 132-9, 23727-2, 2283-8, 2275-4 #### [facility] CLIA [id number] [address] [place] [address] [place] Folate SerPl-mCncon 06-05-20 Folate [Mass/Vol] 6.3 ng/mL Normal >4.7 [facility] Comment on above: Order Comment: Speci men Type: BLOOD SPECIMEN Ordering Facility: [facility] Address: [address] [place] [address] Performed By: #### 2 132-9, 94853-3, 2283-8, 6-4 #### [facility] CLIA [id number] [address] [place] [address] [place] Iron and Iron binding capaci ty panelon 06-05-2023 Iron [Mass/Vol] 63 ug/dL Normal 41-186 [facility] Comment on above: Order Comment: Speci men Type: BLOOD SPECIMEN Ordering Facility: [facility] Address: [address] [place] [address] Performed By: #### 2 132-9, 24869-4, 2284-8, 2276-4 #### [facility] CLIA [id number] [address] [place] [address] [place] Iron binding capacity [Mass/Vol] 344 ug/dL Normal 232-386 [facility] Comment on above: Order Comment: Speci men Type: BLOOD SPECIMEN Ordering Facility: [facility] Address: [address] [place] [address] Performed By: #### 2 132-9, 18870-9, 2283-8, 4 #### [facility] CLIA [id number] [address] [place] [address] [place] Iron/TIBC [Molar ratio] 18.3 % Normal 15.0-57.0 [facility] Comment on above: Order Comment: Speci men Type: BLOOD SPECIMEN Ordering Facility: [facility] Address: [address] [place] [address] Performed By: #### 2 132-9, 90040-1, 2283-8, 4 #### [facility] CLIA [id number] [address] [place] [address] [place] Vit B12 [facility] 11-27-2 023 Cobalamin (Vitamin B12) [Mass/Vol] 443 pg/mL Normal 232-1245 [facility] Comment on above: Order Comment: Speci men Type: BLOOD SPECIMEN Ordering Facility: [facility] Address: [address] [place] [address] Performed By: #### 2 132-9, 51923-3, 2283-8, 4 #### [facility] CLIA [id number] [address] [place] [address] [place] CBC W Auto Differential pane l (Bld)on 04-20-2023 Basophils (Bld) [#/Vol] 10*3/uL Normal <0.11 [facility] Comment on above: Order Comment: Speci men Type: BLOOD SPECIMEN Ordering Facility: [facility] Address: [address] [place] [address] Performed By: #### 2 132-9, 48599-7, 4-8, 6-4 #### [facility] CLIA [id number] [address] [place] [address] [place] Basophils/100 WBC (Bld) 0.2 % Normal [facility] Comment on above: Order Comment: Speci men Type: BLOOD SPECIMEN Ordering Facility: [facility] Address: [address] [place] [address] Performed By: #### 2 132-9, 75641-4, 4-8, 2275-4 #### [facility] CLIA [id number] [address] [place] [address] [place] Differential cell count method Nom (Bld) Auto Normal [facility] Comment on above: Order Comment: Speci men Type: BLOOD SPECIMEN Ordering Facility: [facility] Address: [address] [place] [address] Performed By: #### 2 132-9, 06595-7, 4-8, 2275-4 #### [facility] CLIA [id number] [address] [place] [address] [place] Eosinophils (Bld) [#/Vol] 0.04 10*3/uL Normal <0.46 [facility] Comment on above: Order Comment: Speci men Type: BLOOD SPECIMEN Ordering Facility: [facility] Address: [address] [place] [address] Performed By: #### 2 132-9, 63306-7, 4-8, 6-4 #### [facility] CLIA [id number] [address] [place] [address] [place] Eosinophils/100 WBC (Bld) 0.8 % Normal [facility] Comment on above: Order Comment: Speci men Type: BLOOD SPECIMEN Ordering Facility: [facility] Address: [address] [place] [address] Performed By: #### 2 132-9, 66627-4, 2284-8, 2276-4 #### [facility] CLIA [id number] [address] [place] [address] [place] Erythrocyte distribution width (RBC) [Ratio] 14.7 % Normal 11.5-15.0 [facility] Comment on above: Order Comment: Speci men Type: BLOOD SPECIMEN Ordering Facility: [facility] Address: [address] [place] [address] Performed By: #### 2 132-9, 85836-5, 2284-8, 6-4 #### [facility] CLIA [id number] [address] [place] [address] [place] Hematocrit (Bld) [Volume fraction] 34.1 % Low 36.0-46.0 [facility] Comment on above: Order Comment: Speci men Type: BLOOD SPECIMEN Ordering Facility: [facility] Address: [address] [place] [address] Performed By: #### 2 132-9, 10146-4, 2284-8, 6-4 #### [facility] CLIA [id number] [address] [place] [address] [place] Hemoglobin (Bld) [Mass/Vol] 10.9 g/dL Low 11.5-15.5 [facility] Comment on above: Order Comment: Speci men Type: BLOOD SPECIMEN Ordering Facility: [facility] Address: [address] [place] [address] Performed By: #### 2 132-9, 28590-7, 2284-8, 6-4 #### [facility] CLIA [id number] [address] [place] [address] [place] Immature granulocytes (Bld) [#/Vol] 10*3/uL Normal <0.10 [facility] Comment on above: Order Comment: Speci men Type: BLOOD SPECIMEN Ordering Facility: [facility] Address: [address] [place] [address] Performed By: #### 2 132-9, 02443-4, 2284-8, 6-4 #### [facility] CLIA [id number] [address] [place] [address] [place] Immature granulocytes/100 WBC (Bld) 0.4 % Normal [facility] Comment on above: Order Comment: Speci men Type: BLOOD SPECIMEN Ordering Facility: [facility] Address: [address] [place] [address] Performed By: #### 2 132-9, 29327-1, 2284-8, 6-4 #### [facility] CLIA [id number] [address] [place] [address] [place] Lymphocytes (Bld) [#/Vol] 2.49 10*3/uL Normal 1.00-4.00 [facility] Comment on above: Order Comment: Speci men Type: BLOOD SPECIMEN Ordering Facility: [facility] Address: [address] [place] [address] Performed By: #### 2 132-9, 29492-6, 2283-8, 6-4 #### [facility] CLIA [id number] [address] [place] [address] [place] Lymphocytes/100 WBC (Bld) 51.0 % Normal [facility] Comment on above: Order Comment: Speci men Type: BLOOD SPECIMEN Ordering Facility: [facility] Address: [address] [place] [address] Performed By: #### 2 132-9, 40150-4, 2284-8, 6-4 #### [facility] CLIA [id number] [address] [place] [address] [place] MCH (RBC) [Entitic mass] 31.0 pg Normal 26.0-34.0 [facility] Comment on above: Order Comment: Speci men Type: BLOOD SPECIMEN Ordering Facility: [facility] Address: [address] [place] [address] Performed By: #### 2 132-9, 55501-0, 2284-8, 6-4 #### [facility] CLIA [id number] [address] [place] [address] [place] MCHC (RBC) [Mass/Vol] 32.0 g/dL Normal 30.5-36.0 [facility] Comment on above: Order Comment: Speci men Type: BLOOD SPECIMEN Ordering Facility: [facility] Address: [address] [place] [address] Performed By: #### 2 132-9, 54097-5, 2283-8, 6-4 #### [facility] CLIA [id number] [address] [place] [address] [place] MCV (RBC) [Entitic vol] 96.9 fL Normal 80.0-100.0 [facility] Comment on above: Order Comment: Speci men Type: BLOOD SPECIMEN Ordering Facility: [facility] Address: [address] [place] [address] Performed By: #### 2 132-9, 24114-0, 4-8, 6-4 #### [facility] CLIA [id number] [address] [place] [address] [place] Monocytes (Bld) [#/Vol] 0.26 10*3/uL Normal <0.87 [facility] Comment on above: Order Comment: Speci men Type: BLOOD SPECIMEN Ordering Facility: [facility] Address: [address] [place] [address] Performed By: #### 2 132-9, 19547-9, 2284-8, 6-4 #### [facility] CLIA [id number] [address] [place] [address] [place] Monocytes/100 WBC (Bld) 5.3 % Normal [facility] Comment on above: Order Comment: Speci men Type: BLOOD SPECIMEN Ordering Facility: [facility] Address: [address] [place] [address] Performed By: #### 2 132-9, 13022-4, 2284-8, 6-4 #### [facility] CLIA [id number] [address] [place] [address] [place] Neutrophils (Bld) [#/Vol] 2.06 10*3/uL Normal 1.45-7.50 [facility] Comment on above: Order Comment: Speci men Type: BLOOD SPECIMEN Ordering Facility: [facility] Address: [address] [place] [address] Performed By: #### 2 132-9, 06525-1, 2283-8, 6-4 #### [facility] CLIA [id number] [address] [place] [address] [place] Neutrophils/100 WBC (Bld) 42.3 % Normal [facility] Comment on above: Order Comment: Speci men Type: BLOOD SPECIMEN Ordering Facility: [facility] Address: [address] [place] [address] Performed By: #### 2 132-9, 59207-1, 4-8, 2275-4 #### [facility] CLIA [id number] [address] [place] [address] [place] Nucleated RBC (Bld) [#/Vol] 10*3/uL Normal <0.01 [facility] Comment on above: Order Comment: Speci men Type: BLOOD SPECIMEN Ordering Facility: [facility] Address: [address] [place] [address] Performed By: #### 2 132-9, 41769-0, 4-8, 6-4 #### [facility] CLIA [id number] [address] [place] [address] [place] Nucleated RBC/100 WBC (Bld) [Ratio] 0.0 /100 WBC Normal [facility] Comment on above: Order Comment: Speci men Type: BLOOD SPECIMEN Ordering Facility: [facility] Address: [address] [place] [address] Performed By: #### 2 132-9, 29730-4, 2284-8, 6-4 #### [facility] CLIA [id number] [address] [place] [address] [place] Platelet mean volume (Bld) [Entitic vol] 9.3 fL Normal 9.0-12.7 [facility] Comment on above: Order Comment: Speci men Type: BLOOD SPECIMEN Ordering Facility: [facility] Address: [address] [place] [address] Performed By: #### 2 132-9, 71309-1, 4-8, 6-4 #### [facility] CLIA [id number] [address] [place] [address] [place] Platelets (Bld) [#/Vol] 127 10*3/uL Low 150-400 [facility] Comment on above: Order Comment: Speci men Type: BLOOD SPECIMEN Ordering Facility: [facility] Address: [address] [place] [address] Performed By: #### 2 132-9, 84958-8, 4-8, 6-4 #### [facility] CLIA [id number] [address] [place] [address] [place] RBC (Bld) [#/Vol] 3.52 10*6/uL Low 3.90-5.20 [place] Comment on above: Order Comment: Speci men Type: BLOOD SPECIMEN Ordering Facility: [facility] Address: [address] [place] [address] Performed By: #### 2 132-9, 12839-4, 2283-8, 6-4 #### [facility] CLIA [id number] [address] [place] [address] [place] WBC (Bld) [#/Vol] 4.88 10*3/uL Normal 3.70-11.00 [place] Comment on above: Order Comment: Fabricio tapia Type: BLOOD SPECIMEN Ordering Facility: [facility] Address: [address] [place] [address] Performed By: #### 2 132-9, 15268-8, 2284-8, 2276-4 #### [facility] CLIA [id number] [address] [place] [address] [id number] [place] [address] OF [facility] CNOVSPon 04-20-2023 CNOVSP Visit (SP) Office (HEMASA) ANDREI FISH ([id number]) 1950 F Date Time Provider Department 04/20/23 10:15 AM RINKU RAMSEY HEMASA During your visit today, we recorded the following information about you: Temperature Pulse Respiration Blood pressure 97.8 degrees 72/minute 18/minute 168/87 Weight Height 89 kg 1.588 m Rinku Ramsey MD 04/23/2023 4:09 PM Signed NAME: Andrei Fish CLINIC NO.: [id number] DATE OF SERVICE: April 20, 2023 (Roxy) Some elements in this clinic note that are critical to medical decision making have been carefully reviewed and included from a prior clinic note dated: March 09, 2023 (Roxy) Additional Clinicians involved in Andrei Fish's care: [...] 08/29/2022 and 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 Overall, she is doing well [...] Tavalisse withou (more content not included)... Normal [facility] Comprehensive metabolic 2000 panelon 04-20-2023 Albumin [Mass/Vol] 3.9 g/dL Normal 3.9-4.9 [facility] Comment on above: Order Comment: Speci men Type: BLOOD SPECIMEN Ordering Facility: [facility] Address: [address] [place] [address] Performed By: #### 5 0190-8, 2-9, 2284-8, 2276-4 #### [facility] CLIA [id number] [address] [place] [address] [place] ALP [Catalytic activity/Vol] 67 U/L Normal 34-123 [facility] Comment on above: Order Comment: Speci men Type: BLOOD SPECIMEN Ordering Facility: [facility] Address: [address] [place] [address] Performed By: #### 5 0190-8, 2131-9, 4-8, 6-4 #### [facility] CLIA [id number] [address] [place] [address] [place] ALT [Catalytic activity/Vol] 23 U/L Normal 7-38 [facility] Comment on above: Order Comment: Speci men Type: BLOOD SPECIMEN Ordering Facility: [facility] Address: [address] [place], [place] [address] Performed By: #### 5 0190-8, 2131-9, 4-8, 6-4 #### [facility] CLIA [id number] [address] [place] [address] [place] Anion gap [Moles/Vol] 11 mmol/L Normal 9-18 [facility] Comment on above: Order Comment: Speci men Type: BLOOD SPECIMEN Ordering Facility: [facility] Address: [address] [place] [address] Performed By: #### 5 0190-8, 2131-9, 2283-8, 2276-4 #### [facility] CLIA [id number] [address] [place] [address] [place] AST [Catalytic activity/Vol] 38 U/L High 13-35 [facility] Comment on above: Order Comment: Speci men Type: BLOOD SPECIMEN Ordering Facility: [facility] Address: [address] [place] [address] Performed By: #### 5 0190-8, 2131-9, 2283-8, 6-4 #### [facility] CLIA [id number] [address] [place] [address] [place] Bilirubin [Mass/Vol] 0.6 mg/dL Normal 0.2-1.3 [facility] Comment on above: Order Comment: Speci men Type: BLOOD SPECIMEN Ordering Facility: [facility] Address: [address] [place] [address] Performed By: #### 5 0190-8, 9, 2283-8, 6-4 #### [facility] CLIA [id number] [address] [place] [address] [place] Calcium [Mass/Vol] 10.2 mg/dL Normal 8.5-10.2 [facility] Comment on above: Order Comment: Speci men Type: BLOOD SPECIMEN Ordering Facility: [facility] Address: [address] [place] [address] Performed By: #### 5 0190-8, 2131-9, 2283-8, 2275-4 #### [facility] CLIA [id number] [address] [place] [address] [place] Chloride [Moles/Vol] 102 mmol/L Normal 97-105 [facility] Comment on above: Order Comment: Speci men Type: BLOOD SPECIMEN Ordering Facility: [facility] Address: [address] [place] [address] Performed By: #### 5 0190-8, 2131-9, 2283-8, 6-4 #### [facility] CLIA [id number] [address] [place] [address] [place] CO2 [Moles/Vol] 27 mmol/L Normal 22-30 [facility] Comment on above: Order Comment: Speci men Type: BLOOD SPECIMEN Ordering Facility: [facility] Address: [address] [place] [address] Performed By: #### 5 0190-8, 2131-9, 2283-8, 2275-4 #### [facility] CLIA [id number] [address] [place] [address] [place] Creatinine [Mass/Vol] 1.05 mg/dL High 0.58-0.96 [facility] Comment on above: Order Comment: Speci men Type: BLOOD SPECIMEN Ordering Facility: [facility] Address: [address] [place] [address] Performed By: #### 5 0190-8, 9, 2283-8, 2275-4 #### [facility] CLIA [id number] [address] [place] [address] [place] Creatinine and Glomerular filtration rate.predicted panel (S/P/Bld) 57 mL/min/1.73m??? Low >=60 [facility] Comment on above: Order Comment: Fabricio tapia Type: BLOOD SPECIMEN Ordering Facility: [facility] Address: [address] [place] [address] Result Comment: Miryam mated Glomerular Filtration Rate [...] accurately reflect actual GFR. Performed By: #### 5 0190-8, 2131-9, 8, 2275-4 #### [facility] CLIA [id number] [address] [place] [address] [place] Glucose [Mass/Vol] 134 mg/dL High 74-99 [facility] Comment on above: Order Comment: Fabricio men Type: BLOOD SPECIMEN Ordering Facility: [facility] Address: [address] [place] [address] Result Comment: The [place] Diabetes Association (ADA) provides guidance for cutoff [...] Standards of Medical Care in Diabetes 2016, [place] Diabetes Association. Diabetes Care. 2016.39(Suppl 1). Performed By: #### 5 0190-8, 2131-9, 2283-8, 2275-4 #### [facility] CLIA [id number] [address] [place] [address] [place] Potassium [Moles/Vol] 4.9 mmol/L Normal 3.7-5.1 [facility] Comment on above: Order Comment: Speci men Type: BLOOD SPECIMEN Ordering Facility: [facility] Address: [address] [place] [address] Performed By: #### 5 0190-8, 9, 8, 4 #### [facility] CLIA [id number] [address] [place] [address] [place] Protein [Mass/Vol] 7.4 g/dL Normal 6.3-8.0 [facility] Comment on above: Order Comment: Speci men Type: BLOOD SPECIMEN Ordering Facility: [facility] Address: [address] [place] [address] Performed By: #### 5 0190-8, 9, 8, 2275-4 #### [facility] CLIA [id number] [address] [place] [address] [place] Sodium [Moles/Vol] 140 mmol/L Normal 136-144 [facility] Comment on above: Order Comment: Virgilioi men Type: BLOOD SPECIMEN Ordering Facility: [facility] Address: [address] [place], [place] [address] Performed By: #### 5 0190-8, 2-9, 2284-8, 2276-4 #### [facility] CLIA [id number] [address] [place] [address] [place] Urea nitrogen [Mass/Vol] 26 mg/dL High 7-21 [facility] Comment on above: Order Comment: Speci willie Type: BLOOD SPECIMEN Ordering Facility: [facility] Address: [address] [place] [address] Performed By: #### 5 0190-8, 2-9, 4-8, 6-4 #### [facility] CLIA [id number] [address] [place] [address] [place] LDH SerPl-cCncon 04-20-2023 LDH [Catalytic activity/Vol] 328 U/L High 135-214 [facility] Comment on above: Order Comment: Fabricio tapia Type: BLOOD SPECIMEN Ordering Facility: [facility] Address: [address] [place] [address] Performed By: #### 5 0190-8, 2-9, 4-8, 6-4 #### [facility] CLIA [id number] [address] [place] [address] [place] CNPVilma 04-19-2023 CNPN Telephone (HEMASA) ANDREI FISH ([id number]) 1950 F Date Time Provider Department 04/19/23 RINKU RAMSEY During your visit today, we recorded the following information about you: Marely Alvarez 04/19/2023 4:03 PM Signed Patient has an appt on 04/20. Would you like labs? Allergies As of Date: 04/19/2023 Noted Allergy Reaction TETNUS (TETANUS VACCINES AND TOXO*03/03/2016 16 - Unknown VANCOMYCIN 03/03/2016 16 - Unknown Comments: Burning sensation Date Reviewed: 03/09/2023 Reviewed by: Marely Alvarez - Fully Assessed Reason for Visit: Lab Orders [1688] Primary Visit Diagnosis:Chronic ITP (idiopathic thrombocytopenia) (HCC) [D69.3] Order(s):LD LACTATE DEHYDRO [SQLD6] Order #: [id number] FUTURE CBC + DIFF [SQCBCDIF] Order #: [id number] FUTURE COMP METABOLIC PANEL [SQCMP] Order #: [id number] FUTURE Prescriptions as of 04/19/2023 - benzonatate [...] Status:Closed by RINKU RAMSEY on 04/19/23 Normal [facility] Albumin [Mass/volume] in Ser um or PlasmaOrdered By: Gilson Sarah on 08-29-2022 Albumin [Mass/Vol] 3.2 g/dL 3.2-5.5 [facility] Automated erythrocytes count in urine sediment (number/area)Ordered By: Gilson Sarah on 08-29-2022 RBC Auto (Urine sed) [#/Area] 1-2 [HPF] 0-4 [facility] Automated leukocytes count i n urine sediment (number/area)Ordered By: Gilson Sarah on 08-29-2022 WBC Auto (Urine sed) [#/Area] 0-1 [HPF] 0-4 [facility] Bilirubin Test strip Ql (U)O rdered By: Gilson Sarah on 08-29-2022 Bilirubin Ql (U) Negative Negative [facility] Color Auto (U)Ordered By: Ab christiano Sarah on 08-29-2022 Color (U) Yellow Yellow [facility] Creatinine [Mass/volume] in UrineOrdered By: Gilson Sarah on 08-29-2022 Creatinine (U) [Mass/Vol] 94.2 mg/dL [facility] Comment on above: No reference range e stablished Creatinine and Glomerular fi ltration rate.predicted panel (S/P/Bld)Ordered By: Gilson Sarah on 08-29-2022 Creatinine [Mass/Vol] 0.80 mg/dL 0.44-1.[address] [facility] Dipstick and Microscopicon 0 08-29-2022 Appearance (U) Clear Normal Clear [facility] Comment on above: Order Comment: Reaso n for Exam HTN (hypertension);Lupus;Chronic ITP (idiopathic thrombocyto Name Collection Type:: Clean-Voided Midstream Performed By: #### A DDONUAPLUS #### [facility] [address] [place] [address] [place] Bacteria,Urine None Seen Normal None Seen [facility] Comment on above: Order Comment: Reaso n for Exam HTN (hypertension);Lupus;Chronic ITP (idiopathic thrombocyto Name Collection Type:: Clean-Voided Midstream Performed By: #### A DDONUAPLUS #### [facility] [address] [place] [address] [place] Bilirubin,Urine Negative Normal Negative [facility] Comment on above: Order Comment: Reaso n for Exam HTN (hypertension);Lupus;Chronic ITP (idiopathic thrombocyto Name Collection Type:: Clean-Voided Midstream Performed By: #### A DDONUAPLUS #### [facility] [address] [place] [address] [place] Color (U) Yellow Normal Yellow [facility] Comment on above: Order Comment: Reaso n for Exam HTN (hypertension);Lupus;Chronic ITP (idiopathic thrombocyto Name Collection Type:: Clean-Voided Midstream Performed By: #### A DDONUAPLUS #### [facility] [address] [place] [address] [place] Glucose Ql (U) Normal Normal Normal [facility] Comment on above: Order Comment: Reaso n for Exam HTN (hypertension);Lupus;Chronic ITP (idiopathic thrombocyto Name Collection Type:: Clean-Voided Midstream Performed By: #### A DDONUAPLUS #### [place] [address] [place] Hyaline Casts,Urine 0-8 Normal 0-8 [facility] Comment on above: Order Comment: Reaso n for Exam HTN (hypertension);Lupus;Chronic ITP (idiopathic thrombocyto Name Collection Type:: Clean-Voided Midstream Result Comment: PERF ORMED BY: [place] [address] PATHOLOGIST PANTRY CHEF IVORY BORRERO M.D. Performed By: #### A DDONUAPLUS #### [facility] [address] [place] [address] [place] Ketones Ql (U) Negative Normal Negative [facility] Comment on above: Order Comment: Reaso n for Exam HTN (hypertension);Lupus;Chronic ITP (idiopathic thrombocyto Name Collection Type:: Clean-Voided Midstream Performed By: #### A DDONUAPLUS #### [place] [address] [place] Leukocyte esterase Test strip Ql (U) Negative Normal Negative [facility] Comment on above: Order Comment: Reaso n for Exam HTN (hypertension);Lupus;Chronic ITP (idiopathic thrombocyto Name Collection Type:: Clean-Voided Midstream Performed By: #### A DDONUAPLUS #### [facility] [address] [place] [address] [place] Nitrite,Urine Negative Normal Negative [facility] Comment on above: Order Comment: Reaso n for Exam HTN (hypertension);Lupus;Chronic ITP (idiopathic thrombocyto Name Collection Type:: Clean-Voided Midstream Performed By: #### A DDONUAPLUS #### [facility] [address] [place] [address] [place] Occult Blood,Urine Negative Normal Negative [facility] Comment on above: Order Comment: Reaso n for Exam HTN (hypertension);Lupus;Chronic ITP (idiopathic thrombocyto Name Collection Type:: Clean-Voided Midstream Performed By: #### A DDONUAPLUS #### [address] pH (U) 6.5 [pH] Normal 5.0-9.0 [facility] Comment on above: Order Comment: Reaso n for Exam HTN (hypertension);Lupus;Chronic ITP (idiopathic thrombocyto Name Collection Type:: Clean-Voided Midstream Performed By: #### A DDONUAPLUS #### [facility] [address] [place] [address] [place] Protein,Urine Negative Normal Negative [facility] Comment on above: Order Comment: Reaso n for Exam HTN (hypertension);Lupus;Chronic ITP (idiopathic thrombocyto Name Collection Type:: Clean-Voided Midstream Performed By: #### A DDONUAPLUS #### [facility] [address] [place] [address] [place] RBC,Urine 1-2 Normal 0-4 [facility] Comment on above: Order Comment: Reaso n for Exam HTN (hypertension);Lupus;Chronic ITP (idiopathic thrombocyto Name Collection Type:: Clean-Voided Midstream Performed By: #### A DDONUAPLUS #### [place] [address] [place] Specificy Backus,Urine 1.015 Normal 1.001-1.030 [facility] Comment on above: Order Comment: Reaso n for Exam HTN (hypertension);Lupus;Chronic ITP (idiopathic thrombocyto Name Collection Type:: Clean-Voided Midstream Performed By: #### A DDONUAPLUS #### [facility] [address] Squamous Epithelial Cell,Urine 3-4 High 0-2 [facility] Comment on above: Order Comment: Reaso n for Exam HTN (hypertension);Lupus;Chronic ITP (idiopathic thrombocyto Name Collection Type:: Clean-Voided Midstream Performed By: #### A DDONUAPLUS #### [facility] [address] [place] [address] Urobilinogen,Urine Normal Normal Normal [facility] Comment on above: Order Comment: Reaso n for Exam HTN (hypertension);Lupus;Chronic ITP (idiopathic thrombocyto Name Collection Type:: Clean-Voided Midstream Performed By: #### A DDONUAPLUS #### [address] WBC LM.HPF (Urine sed) [#/Area] 0 /[HPF] Normal 0-4 [facility] Comment on above: Order Comment: Reaso n for Exam HTN (hypertension);Lupus;Chronic ITP (idiopathic thrombocyto Name Collection Type:: Clean-Voided Midstream Performed By: #### A DDONUAPLUS #### [facility] [address] [place] [address] Erythrocyte distribution wid th Auto (RBC) [Ratio]Ordered By: Gilson Sarah on 08-29-2022 Erythrocyte distribution width (RBC) [Ratio] 14.9 % 11.9-15.3 [facility] Estimated glomerular filtrat ion rate (GFR) non- AmericanOrdered By: Gilson Sarah on 08-29-2022 GFR/1.73 sq M.predicted among non-blacks MDRD (S/P/Bld) [Vol rate/Area] > 60 mL/Min [facility] Hematocrit Auto (Bld) [Volum e fraction]Ordered By: Gilson Sarah on 08-29-2022 Hematocrit (Bld) [Volume fraction] 34.9 % 34.0-46.4 [facility] Hemoglobin [Mass/volume] in BloodOrdered By: Gilson Sarah on 08-29-2022 Hemoglobin (Bld) [Mass/Vol] 11.2 g/dL 11.8-15.4 [facility] Hemogram CBC Without Diffon 08-29-2022 Erythrocyte distribution width (RBC) [Ratio] 14.9 % Normal 11.9-15.3 [facility] Comment on above: Order Comment: Reaso n for Exam HTN (hypertension);Lupus;Chronic ITP (idiopathic thrombocyto Performed By: #### C BCNO #### [address] Hematocrit (Bld) [Volume fraction] 34.9 % Normal 34.0-46.4 [facility] Comment on above: Order Comment: Reaso n for Exam HTN (hypertension);Lupus;Chronic ITP (idiopathic thrombocyto Performed By: #### C BCNO #### [address] Hemoglobin (Bld) [Mass/Vol] 11.2 g/dL Low 11.8-15.4 [facility] Comment on above: Order Comment: Reaso n for Exam HTN (hypertension);Lupus;Chronic ITP (idiopathic thrombocyto Performed By: #### C BCNO #### [address] MCH (RBC) [Entitic mass] 29.5 pg Normal 24.7-34.3 [facility] Comment on above: Order Comment: Reaso n for Exam HTN (hypertension);Lupus;Chronic ITP (idiopathic thrombocyto Performed By: #### C BCNO #### [address] MCV (RBC) [Entitic vol] 92.0 fL Normal 80-100 [facility] Comment on above: Order Comment: Reaso n for Exam HTN (hypertension);Lupus;Chronic ITP (idiopathic thrombocyto Performed By: #### C BCNO #### [address] Mean Corpuscular HGB Conc 32.1 g/dL Normal 32.0-35.0 [facility] Comment on above: Order Comment: Reaso n for Exam HTN (hypertension);Lupus;Chronic ITP (idiopathic thrombocyto Performed By: #### C BCNO #### [address] Platelet mean volume (Bld) [Entitic vol] 8.4 fL Normal 6.3-10.7 [facility] Comment on above: Order Comment: Reaso n for Exam HTN (hypertension);Lupus;Chronic ITP (idiopathic thrombocyto Result Comment: PERF ORMED BY: [place] [address] PATHOLOGIST PANTRY CHEF IVORY BORRERO M.D. Performed By: #### C BCNO #### [address] Platelets (Bld) [#/Vol] 124 10*3/uL Low 150-450 [facility] Comment on above: Order Comment: Reaso n for Exam HTN (hypertension);Lupus;Chronic ITP (idiopathic thrombocyto Performed By: #### C BCNO #### [address] RBC (Bld) [#/Vol] 3.79 10*6/uL Normal 3.60-5.00 [facility] Comment on above: Order Comment: Reaso n for Exam HTN (hypertension);Lupus;Chronic ITP (idiopathic thrombocyto Performed By: #### C BCNO #### [address] WBC (Bld) [#/Vol] 4.3 10*3/uL Normal 3.8-11.6 [facility] Comment on above: Order Comment: Reaso n for Exam HTN (hypertension);Lupus;Chronic ITP (idiopathic thrombocyto Performed By: #### C BCNO #### [address] Ketones Auto test strip (U) [Mass/Vol]Ordered By: Gilson Sarah on 08-29-2022 Ketones (U) [Mass/Vol] Negative Negative [facility] - Chemistry and C hemistry - challengeOrdered By: Gilson Sarah on 08-29-2022 Magnesium [Mass/Vol] 2.1 mg/dL 1.6-2.6 [facility] - UrinalysisOrder ed By: Gilson Sarah on 08-29-2022 Hyaline casts LM Ql (Urine sed) 0-8 [LPF] 0-8 [facility] Leukocytes [#/volume] correc austin for nucleated erythrocytes in Blood by Automated counOrdered By: Gilson Sarah on 08-29-2022 WBC corrected for nucl RBC Auto (Bld) [#/Vol] 4.3 10*3/uL 3.8-11.6 [facility] MCH Auto (RBC) [Entitic mass ]Ordered By: Gilson Sarah on 08-29-2022 MCH (RBC) [Entitic mass] 29.5 pg 24.7-34.3 [facility] MCHC Auto (RBC) [Mass/Vol]Or dered By: Gilson Sarah on 08-29-2022 MCHC (RBC) [Mass/Vol] 32.1 g/dL 32.0-35.[address] [facility] MCV Auto (RBC) [Entitic vol] Ordered By: Gilson Sarah on 08-29-2022 MCV (RBC) [Entitic vol] 92.0 fL 80-100 [facility] Magnesiumon 08-29-2022 Magnesium [Mass/Vol] 2.1 mg/dL Normal 1.6-2.6 [facility] Comment on above: Order Comment: Reaso n for Exam HTN (hypertension);Lupus;Chronic ITP (idiopathic thrombocyto Result Comment: PERF ORMED BY: [place] [address] PATHOLOGIST PANTRY CHEF IVORY BORRERO M.D. Performed By: #### C BCNO #### [address] Nitrite Test strip Ql (U)Ord ered By: Gilson Sarah on 08-29-2022 Nitrite Ql (U) Negative Negative [facility] No Panel InformationOrdered By: Gilson Sarah on 08-29-2022 Estimated GFR () > 60 mL/Min [facility] Comment on above: GFR estimated refere nce range: According to KDOQI guidelines, <60 ml/min/1.73m2 is sufficient to diagnose a patient with chronic kidney disease. Pharmacy Creatinine Clearance (Chem N/A [facility] Phosphate [Mass/volume] in S henok or PlasmaOrdered By: Gilson Sarah on 08-29-2022 Phosphate [Mass/Vol] 3.1 mg/dL 2.5-4.6 [facility] Platelet mean volume Auto (B ld) [Entitic vol]Ordered By: Gilson aSrah on 08-29-2022 Platelet mean volume (Bld) [Entitic vol] 8.4 fL 6.3-10.7 [facility] Platelets Auto (Bld) [#/Vol] Ordered By: Gilson Sarah on 08-29-2022 Platelets (Bld) [#/Vol] 124 10*3/uL 150-450 [facility] Protein Auto test strip (U) [Mass/Vol]Ordered By: Gilson Sarah on 08-29-2022 Protein (U) [Mass/Vol] Negative Negative [facility] Protein Creat Ratio Ur Rando mon 08-29-2022 Creatinine, Urine (Random) 94.2 mg/dL Normal [facility] Comment on above: Order Comment: Reaso n for Exam HTN (hypertension);Lupus;Chronic ITP (idiopathic thrombocyto Result Comment: No r eference range established Performed By: #### P ROCRERAT #### [facility] [address] Protein (U) [Mass/Vol] 9 mg/dL Normal 0-9 [facility] Comment on above: Order Comment: Reaso n for Exam HTN (hypertension);Lupus;Chronic ITP (idiopathic thrombocyto Performed By: #### P ROCRERAT #### [facility] [address] [place] [id number] [place] Urine Protein/Creatinine Ratio 96 mg/g{Cre} Normal 0-200 [facility] Comment on above: Order Comment: Reaso n for Exam HTN (hypertension);Lupus;Chronic ITP (idiopathic thrombocyto Result Comment: PERF ORMED BY: [facility] [address] [place] [address] PATHOLOGIST PANTRY CHEF IVORY BORRERO M.D. Performed By: #### P MARSHALL #### [facility] [address] Protein [Mass/volume] in Uri neOrdered By: Gilson Tyrel on 08-29-2022 Protein (U) [Mass/Vol] 9 mg/dL 0-9 [facility] RBC Auto (Bld) [#/Vol]Ordere d By: Gilson Tyrel on 08-29-2022 RBC (Bld) [#/Vol] 3.79 10*6/uL 3.60-5.00 [facility] Renal Function Panelon 08-29 Albumin [Mass/Vol] 3.2 g/dL Normal 3.2-5.5 [facility] Comment on above: Order Comment: Reaso n for Exam HTN (hypertension);Lupus;Chronic ITP (idiopathic thrombocyto Performed By: #### C BCNO #### [facility] [address] [place] [address] [place] Anion gap [Moles/Vol] 10.9 mmol/L Normal 6.0-15.0 [facility] Comment on above: Order Comment: Reaso n for Exam HTN (hypertension);Lupus;Chronic ITP (idiopathic thrombocyto Performed By: #### C BCNO #### [facility] [address] [place] [address] [place] Calcium [Mass/Vol] 8.8 mg/dL Normal 8.2-10.2 [facility] Comment on above: Order Comment: Reaso n for Exam HTN (hypertension);Lupus;Chronic ITP (idiopathic thrombocyto Performed By: #### C BCNO #### [facility] [address] [place] [id number] [place] Chloride [Moles/Vol] 99 mmol/L Normal 95-114 [facility] Comment on above: Order Comment: Reaso n for Exam HTN (hypertension);Lupus;Chronic ITP (idiopathic thrombocyto Performed By: #### C BCNO #### [facility] [address] [place] [address] [place] CO2 [Moles/Vol] 28.0 mmol/L Normal 22.0-30.0 [facility] Comment on above: Order Comment: Reaso n for Exam HTN (hypertension);Lupus;Chronic ITP (idiopathic thrombocyto Performed By: #### C BCNO #### [facility] [address] [place] [id number] [facility] Creatinine [Mass/Vol] 0.80 mg/dL Normal 0.44-1.[address] [facility] Comment on above: Order Comment: Reaso n for Exam HTN (hypertension);Lupus;Chronic ITP (idiopathic thrombocyto Performed By: #### C BCNO #### [facility] [address] [place] [address] [place] Estimated GFR ( Chelsi > 60 [facility] Comment on above: Order Comment: Reaso n for Exam HTN (hypertension);Lupus;Chronic ITP (idiopathic thrombocyto Result Comment: GFR estimated reference range: According to KDOQI guidelines, <60 ml/min/1.73m2 is sufficient to diagnose a patient with chronic kidney disease. Performed By: #### C BCNO #### [facility] [address] [id number] [place] Estimated GFR (Non- Am > 60 [facility] Comment on above: Order Comment: Reaso n for Exam HTN (hypertension);Lupus;Chronic ITP (idiopathic thrombocyto Performed By: #### C BCNO #### [facility] [address] [id number] [place] Glucose [Mass/Vol] 89 mg/dL Normal 70-100 [facility] Comment on above: Order Comment: Reaso n for Exam HTN (hypertension);Lupus;Chronic ITP (idiopathic thrombocyto Result Comment: [place] om Glucose Reference Range is dependent on time and content of last meal. Glucose of more than 200 mg/dL in a nonstressed, ambulatory subject supports the diagnosis of Diabetes Mellitus. ADA recommended reference range Performed By: #### C BCNO #### [facility] [address] [id number] [facility] Phosphate [Mass/Vol] 3.1 mg/dL Normal 2.5-4.6 [facility] Comment on above: Order Comment: Reaso n for Exam HTN (hypertension);Lupus;Chronic ITP (idiopathic thrombocyto Performed By: #### C BCNO #### [facility] [address] Potassium [Moles/Vol] 3.9 mmol/L Normal 3.5-5.[address] [facility] Comment on above: Order Comment: Reaso n for Exam HTN (hypertension);Lupus;Chronic ITP (idiopathic thrombocyto Performed By: #### C BCNO #### [facility] [address] [id number] [facility] Sodium [Moles/Vol] 134 mmol/L Low 136-146 [facility] Comment on above: Order Comment: Reaso n for Exam HTN (hypertension);Lupus;Chronic ITP (idiopathic thrombocyto Performed By: #### C BCNO #### [facility] [address] [id number] [facility] Urea nitrogen [Mass/Vol] 19 mg/dL Normal 9-23 [facility] Comment on above: Order Comment: Reaso n for Exam HTN (hypertension);Lupus;Chronic ITP (idiopathic thrombocyto Performed By: #### C BCNO #### [facility] [address] Serum or plasma anion gap de terminationOrdered By: Gilson Sarah on 08-29-2022 Anion gap [Moles/Vol] 10.9 mmol/L 6.0-15.0 [facility] Serum or plasma calcium ramya urement (mass/volume)Ordered By: Gilson Sarah on 08-29-2022 Calcium [Mass/Vol] 8.8 mg/dL 8.2-10.2 [facility] Serum or plasma chloride brandy surement (moles/volume)Ordered By: Gilson Sarah on 08-29-2022 Chloride [Moles/Vol] 99 mmol/L 95-114 [facility] Serum or plasma glucose ramya urement (mass/volume)Ordered By: Gilson aSrah on 08-29-2022 Glucose [Mass/Vol] 89 mg/dL 70-100 [facility] Comment on above: ADA recommended refe rence rangeRandom Glucose Reference Range is dependent on time and content of last meal. Glucose of more than 200 mg/dL in a nonstressed, ambulatory subject supports the diagnosis of Diabetes Mellitus. Serum or plasma potassium me asurement (moles/volume)Ordered By: Gilson Sarah on 08-29-2022 Potassium [Moles/Vol] 3.9 mmol/L 3.5-5.[address] [facility] Serum or plasma sodium measu rement (moles/volume)Ordered By: Glison Sarah on 08-29-2022 Sodium [Moles/Vol] 134 mmol/L 136-146 [facility] Serum or plasma total carbon dioxide measurement (moles/volume)Ordered By: Gilson Sarah on 08-29-2022 CO2 [Moles/Vol] 28.0 mmol/L 22.0-30.0 [facility] Serum or plasma urea nitroge n measurement (mass/volume)Ordered By: Gilson Sarah on 08-29-2022 Urea nitrogen [Mass/Vol] 19 mg/dL 9- [facility] Specific gravity Auto test s trip (U) [Rel density]Ordered By: Gilson Sarah on 08-29-2022 Specific gravity (U) [Rel density] 1.015 1.001-1.030 [facility] Squamous epithelial cells de tection in urine sediment by light microscopyOrdered By: Gilson Sarah on 08-29-2022 Epithelial cells.squamous LM Ql (Urine sed) 3-4 [HPF] 0-2 [facility] US renal BIon 08-29-2022 US renal BI [facility] [place] [address] Ultrasound Report Signed Patient: Andrei Fish MR#: [id number] : 1950 Acct:[id number] Age/Sex: 71 / F ADM Date: 08/29/22 Loc: UL Room: Type: [facility] Attending Dr: Gilson Sarah MD Ordering Provider: [...] Cruz Jr., D.ODonald08/29/2022 2:20 PM Dictation Location: [place] [address] Tech: Kamille Camacho Transcribed By: ERIC 08/29/22 142 Dictated By: Anastacio Cruz Jr, DO 08/29/22 141 Signed By: 08/29/221419 Normal [facility] Urine bacteria detection by automated methodOrdered By: Gilson Sarah on 08-29-2022 Bacteria Auto Ql (U) None seen None Seen [facility] Urine clarity by refractomet ry automatedOrdered By: Gilson Sarah on 08-29-2022 Clarity Refractometry automated (U) Clear Clear [facility] Urine glucose measurement by automated test strip (mass/volume)Ordered By: Gilson Sarah on 08-29-2022 Glucose Auto test strip (U) [Mass/Vol] Normal mg/dL Normal [facility] Urine hemoglobin detection b y automated test stripOrdered By: Gilson Sarah on 08-29-2022 Hemoglobin Auto test strip Ql (U) Negative Negative [facility] Urine leukocyte esterase det ection by automated test stripOrdered By: Gilson Sarah on 08-29-2022 Leukocyte esterase Auto test strip Ql (U) Negative Negative [facility] Urine protein/creatinine rat ioOrdered By: Gilson Sarah on 08-29-2022 Protein/Creatinine (U) [Ratio] 96 mg/g{Cre} 0-200 [facility] Urobilinogen Auto test strip (U) [Mass/Vol]Ordered By: Gilson Sarah on 08-29-2022 Urobilinogen (U) [Mass/Vol] Normal mg/dL Normal [facility] pH Auto test strip (U)Ordere d By: Gilson Sarah on 08-29-2022 pH (U) 6.5 [pH] 5.0-9.0 [facility] MAGNESIUM BLDon 12-17-2021 Magnesium [Mass/Vol] 2.3 mg/dL 1.7 - 2 .3 mg/dL [facility] Vital Signs Date Time Vital Sign Value Performing Clinician Facility 04-09-2024 10:15040 Body height 160 cm Blaise GONZALEZ Work Phone: [facility] 04-09-2024 10:15-040 Body mass index (BMI) [Ratio] 32.59 kg/m2 Blaise GONZALEZ Work Phone: [facility] 04-09-2024 10:15040 Body weight 83.46 kg Blaise GONZALEZ Work Phone: [facility] 03-05-2024 10:56-0400 Body height 158.8 cm Rinku Ramsey MD Work Phone: [facility] 03-05-2024 10:56-0400 Body mass index (BMI) [Ratio] 34.66 kg/m2 Rinku Ramsey MD Work Phone: [facility] 03-05-2024 10:56-0400 Body temperature 97.7 [degF] Rinku Ramsey MD Work Phone: [facility] 03-05-2024 10:56-0400 Body weight 87.4 kg Rinku Ramsey MD Work Phone: [facility] 03-05-2024 10:56-0400 Diastolic blood pressure 72 mm[Hg] Rinku Ramsey MD Work Phone: [facility] 03-05-2024 10:56-0400 Heart rate 74 /min Rinku Ramsey MD Work Phone: [facility] 03-05-2024 10:56-0400 Respiratory rate 16 /min Rinku Ramsey MD Work Phone: [facility] 03-05-2024 10:56-0400 SaO2% (BldA) [Mass fraction] 98 % Rinku Ramsey MD Work Phone: [facility] 03-05-2024 10:56-0400 Systolic blood pressure 128 mm[Hg] Rinku Ramsey MD Work Phone: [facility] 02-02-2024 13:21-0400 Body height 158.8 cm Rinku Ramsey MD Work Phone: [facility] 02-02-2024 13:21-0400 Body mass index (BMI) [Ratio] 34.54 kg/m2 Rinku Ramsey MD Work Phone: [facility] 02-02-2024 13:21-0400 Body temperature 97.7 [degF] Rinku Ramsey MD Work Phone: [facility] 02-02-2024 13:21-0400 Body weight 87.1 kg Rinku Ramsey MD Work Phone: [facility] 02-02-2024 13:21-0400 Diastolic blood pressure 68 mm[Hg] Rinku Ramsey MD Work Phone: [facility] 02-02-2024 13:21-0400 Heart rate 76 /min Rinku Ramsey MD Work Phone: [facility] 02-02-2024 13:21-0400 Respiratory rate 16 /min Rinku Ramsey MD Work Phone: [facility] 02-02-2024 13:21-0400 SaO2% (BldA) [Mass fraction] 100 % Rinku Ramsey MD Work Phone: [facility] 02-02-2024 13:21-0400 Systolic blood pressure 142 mm[Hg] Rinku Ramsey MD Work Phone: [facility] 12-18-2023 14:20-0400 Body temperature 97.2 [degF] Susanna Graf MD Work Phone: [facility] 12-18-2023 14:20-0400 Diastolic blood pressure 57 mm[Hg] Susanna Graf MD Work Phone: [facility] 12-18-2023 14:20-0400 Heart rate 79 /min Susanna Graf MD Work Phone: [facility] 12-18-2023 14:20-0400 Respiratory rate 19 /min Susanna Graf MD Work Phone: [facility] 12-18-2023 14:20-0400 SaO2% (BldA) [Mass fraction] 96 % Susanna Graf MD Work Phone: [facility] 12-18-2023 14:20-0400 Systolic blood pressure 131 mm[Hg] Susanna Graf MD Work Phone: [facility] 12-18-2023 06:28-0400 Body height 160 cm Susanna Graf MD Work Phone: [facility] 12-18-2023 06:28-0400 Body mass index (BMI) [Ratio] 33.94 kg/m2 Susanna Graf MD Work Phone: [facility] 12-18-2023 06:28-0400 Body weight 86.9 kg Susanna Graf MD Work Phone: [facility] 11-24-2023 10:59-0400 Body height 158.8 cm Rinku Ramsey MD Work Phone: [facility] 11-24-2023 10:59-0400 Body mass index (BMI) [Ratio] 34.78 kg/m2 Rinku Ramsey MD Work Phone: [facility] 11-24-2023 10:59-0400 Body temperature 97.7 [degF] Rinku Ramsey MD Work Phone: [facility] 11-24-2023 10:59-0400 Body weight 87.7 kg Rinku Ramsey MD Work Phone: [facility] 11-24-2023 10:59-0400 Diastolic blood pressure 84 mm[Hg] Rinku Ramsey MD Work Phone: [facility] 11-24-2023 10:59-0400 Heart rate 68 /min Rinku Ramsey MD Work Phone: [facility] 11-24-2023 10:59-0400 Respiratory rate 16 /min Rinku Ramsey MD Work Phone: [facility] 11-24-2023 10:59-0400 SaO2% (BldA) [Mass fraction] 100 % Rinku Ramsey MD Work Phone: [facility] 11-24-2023 10:59-0400 Systolic blood pressure 152 mm[Hg] Rinku Ramsey MD Work Phone: [facility] 11-14-2023 12:52-0400 Body height 160 cm Susanna Graf MD Work Phone: [facility] 11-14-2023 12:52-0400 Body mass index (BMI) [Ratio] 34.28 kg/m2 Susanna Graf MD Work Phone: [facility] 11-14-2023 12:52-0400 Body temperature 97.11 [degF] Susanna Graf MD Work Phone: [facility] 11-14-2023 12:52-0400 Body weight 87.77 kg Susanna Graf MD Work Phone: [facility] 08-28-2023 14:37-0500 Body temperature 97.59 [degF] Rinku Ramsey MD Work Phone: [facility] 08-28-2023 14:37-0500 Body weight 87.3 kg Rinku Ramsey MD Work Phone: [facility] 08-28-2023 14:37-0500 Diastolic blood pressure 78 mm[Hg] Rinku Ramsey MD Work Phone: [facility] 08-28-2023 14:37-0500 Heart rate 85 /min Rinku Ramsey MD Work Phone: [facility] 08-28-2023 14:37-0500 Respiratory rate 16 /min Rinku Ramsey MD Work Phone: [facility] 08-28-2023 14:37-0500 SaO2% (BldA) [Mass fraction] 97 % Rinku Ramsey MD Work Phone: [facility] 08-28-2023 14:37-0500 Systolic blood pressure 132 mm[Hg] Rinku Ramsey MD Work Phone: [facility] 08-23-2023 10:10-0500 Body height 160 cm Mar Mayo MD Work Phone: [facility] 08-23-2023 10:10-0500 Body mass index (BMI) [Ratio] 33.66 kg/m2 Mar Mayo MD Work Phone: [facility] 08-23-2023 10:10-0500 Body weight 86.18 kg Mar Mayo MD Work Phone: [facility] 08-23-2023 10:10-0500 Diastolic blood pressure 68 mm[Hg] Mar Mayo MD Work Phone: [facility] 08-23-2023 10:10-0500 Systolic blood pressure 133 mm[Hg] Mar Mayo MD Work Phone: [facility] 06-28-2023 10:20-0500 Body height 160.02 cm Gilson Tyrel Other [employer] Other 06-28-2023 10:20-0500 Body mass index (BMI) [Ratio] 34.04 kg/m2 Gilson Tyrel Other [employer] Other 06-28-2023 10:20-0500 Body temperature 96.7 [degF] Gilson Tyrel Other [employer] Other 06-28-2023 10:20-0500 Body weight 87.18 kg Gilson Tyrel Other [employer] Other 06-28-2023 10:20-0500 Diastolic blood pressure 59 mm[Hg] Gilson Tyrel Other [employer] Other 06-28-2023 10:20-0500 Respiratory rate 18 /min Gilson Tyrel Other [employer] Other 06-28-2023 10:20-0500 SaO2% (BldA) [Mass fraction] 96 % Gilson Tyrel Other [employer] Other 06-28-2023 10:20-0500 Systolic blood pressure 117 mm[Hg] Gilson Tyrel Other [employer] Other 06-05-2023 10:08-0500 Body height 158.8 cm Ana Mary PA-C Work Phone: [facility] 06-05-2023 10:08-0500 Body temperature 97 [degF] Ana Mary PA-C Work Phone: [facility] 06-05-2023 10:08-0500 Body weight 87.27 kg Ana Mary PA-C Work Phone: [facility] 06-05-2023 10:08-0500 Diastolic blood pressure 84 mm[Hg] Ana Mary PA-C Work Phone: [facility] 06-05-2023 10:08-0500 Heart rate 76 /min Ana Mary PA-C Work Phone: [facility] 06-05-2023 10:08-0500 Respiratory rate 16 /min Ana Aguilarer PA-C Work Phone: [facility] 06-05-2023 10:08-0500 SaO2% (BldA) [Mass fraction] 97 % Anaifeanyi Aguilarer PA-C Work Phone: [facility] 06-05-2023 10:08-0500 Systolic blood pressure 152 mm[Hg] Ana Mary PA-C Work Phone: [facility] 04-20-2023 10:11-0400 Body height 158.8 cm Rinku Ramsey MD Work Phone: [facility] 04-20-2023 10:11-0400 Body temperature 97.81 [degF] Rinku Ramsey MD Work Phone: [facility] 04-20-2023 10:11-0400 Body weight 89 kg Rinku Ramsey MD Work Phone: [facility] 04-20-2023 10:11-0400 Diastolic blood pressure 87 mm[Hg] Rinku Ramsey MD Work Phone: [facility] 04-20-2023 10:11-0400 Heart rate 72 /min Rinku Ramsey MD Work Phone: [facility] 04-20-2023 10:11-0400 Respiratory rate 18 /min Rinku Ramsey MD Work Phone: [facility] 04-20-2023 10:11-0400 SaO2% (BldA) [Mass fraction] 98 % Rinku Ramsey MD Work Phone: [facility] 04-20-2023 10:11-0400 Systolic blood pressure 168 mm[Hg] Rinku Ramsey MD Work Phone: [facility] 03-09-2023 14:03-0400 Body height 158.8 cm Rinku Ramsey MD Work Phone: [facility] 03-09-2023 14:03-0400 Body temperature 97.59 [degF] Rinku Ramsey MD Work Phone: [facility] 03-09-2023 14:03-0400 Body weight 88.27 kg Rinku Ramsey MD Work Phone: [facility] 03-09-2023 14:03-0400 Diastolic blood pressure 76 mm[Hg] Rinku Ramsey MD Work Phone: [facility] 03-09-2023 14:03-0400 Heart rate 71 /min Rinku Ramsey MD Work Phone: [facility] 03-09-2023 14:03-0400 Respiratory rate 16 /min Rinku Ramsey MD Work Phone: [facility] 03-09-2023 14:03-0400 SaO2% (BldA) [Mass fraction] 95 % Rinku Ramsey MD Work Phone: [facility] 03-09-2023 14:03-0400 Systolic blood pressure 143 mm[Hg] Rinku Ramsey MD Work Phone: [facility] 01-26-2023 14:48-0400 Body height 158.8 cm Rinku Ramsey MD Work Phone: [facility] 01-26-2023 14:48-0400 Body temperature 97.59 [degF] Rinku Ramsey MD Work Phone: [facility] 01-26-2023 14:48-0400 Body weight 89.09 kg Rinku Ramsey MD Work Phone: [facility] 01-26-2023 14:48-0400 Diastolic blood pressure 77 mm[Hg] Rinku Ramsey MD Work Phone: [facility] 01-26-2023 14:48-0400 Heart rate 75 /min Rinku Ramsey MD Work Phone: [facility] 01-26-2023 14:48-0400 Respiratory rate 18 /min Rinku Ramsey MD Work Phone: [facility] 01-26-2023 14:48-0400 SaO2% (BldA) [Mass fraction] 98 % Rinku Ramsey MD Work Phone: [facility] 01-26-2023 14:48-0400 Systolic blood pressure 147 mm[Hg] Rinku Ramsey MD Work Phone: [facility] 12-15-2022 13:52-0400 Body height 158.8 cm Rinku Ramsey MD Work Phone: [facility] 12-15-2022 13:52-0400 Body temperature 97.5 [degF] Rinku Ramsey MD Work Phone: [facility] 12-15-2022 13:52-0400 Body weight 87.36 kg Rinku Ramsey MD Work Phone: [facility] 12-15-2022 13:52-0400 Diastolic blood pressure 8 mm[Hg] Rinku Ramsey MD Work Phone: [facility] 12-15-2022 13:52-0400 Heart rate 64 /min Rinku Ramsey MD Work Phone: [facility] 12-15-2022 13:52-0400 Respiratory rate 16 /min Rinku Ramsey MD Work Phone: [facility] 12-15-2022 13:52-0400 SaO2% (BldA) [Mass fraction] 96 % Rinku Ramsey MD Work Phone: [facility] 12-15-2022 13:52-0400 Systolic blood pressure 152 mm[Hg] Rinku Ramsey MD Work Phone: [facility] 10-27-2022 14:56-0400 Body height 158.8 cm Rinku Ramsey MD Work Phone: [facility] 10-27-2022 14:56-0400 Body temperature 97.39 [degF] Rinku Ramsey MD Work Phone: [facility] 10-27-2022 14:56-0400 Body weight 87.36 kg Rinku Ramsey MD Work Phone: [facility] 10-27-2022 14:56-0400 Diastolic blood pressure 84 mm[Hg] Rinku Ramsey MD Work Phone: [facility] 10-27-2022 14:56-0400 Heart rate 71 /min Rinku Ramsey MD Work Phone: [facility] 10-27-2022 14:56-0400 Respiratory rate 18 /min Rinku Ramsey MD Work Phone: [facility] 10-27-2022 14:56-0400 SaO2% (BldA) [Mass fraction] 98 % Rinku Ramsey MD Work Phone: [facility] 10-27-2022 14:56-0400 Systolic blood pressure 164 mm[Hg] Rinku Ramsey MD Work Phone: [facility] 09-15-2022 15:20-0500 Body height 158.8 cm Rinku Ramsey MD Work Phone: [facility] 09-15-2022 15:20-0500 Body temperature 97.11 [degF] Rinku Ramsey MD Work Phone: [facility] 09-15-2022 15:20-0500 Body weight 86.36 kg Rinku Ramsey MD Work Phone: [facility] 09-15-2022 15:20-0500 Diastolic blood pressure 89 mm[Hg] Rinku Ramsey MD Work Phone: [facility] 09-15-2022 15:20-0500 Heart rate 75 /min Rinku Ramsey MD Work Phone: [facility] 09-15-2022 15:20-0500 Respiratory rate 16 /min Rinku Ramsey MD Work Phone: [facility] 09-15-2022 15:20-0500 SaO2% (BldA) [Mass fraction] 97 % Rinku Ramsey MD Work Phone: [facility] 09-15-2022 15:20-0500 Systolic blood pressure 158 mm[Hg] Rinku Ramsey MD Work Phone: [facility] 09-07-2022 10:20-0500 Body height 160.02 cm Gilson Tyrel Other [employer] Other 09-07-2022 10:20-0500 Body mass index (BMI) [Ratio] 33.69 kg/m2 Gilson Tyrel Other [employer] Other 09-07-2022 10:20-0500 Body temperature 96.4 [degF] Gilson Tyrel Other [employer] Other 09-07-2022 10:20-0500 Body weight 86.27 kg Gilson Tyrel Other [employer] Other 09-07-2022 10:20-0500 Diastolic blood pressure 99 mm[Hg] Gilson Tyrel Other [employer] Other 09-07-2022 10:20-0500 Respiratory rate 18 /min Gilson Tyrel Other [employer] Other 09-07-2022 10:20-0500 SaO2% (BldA) [Mass fraction] 98 % Gilson Tyrel Other [employer] Other 09-07-2022 10:20-0500 Systolic blood pressure 180 mm[Hg] Gilson Sarah Other [facility] [employer] Other 08-04-2022 13:58-0500 Body height 158.8 cm Jayden Connelly APRN.[employer]AT[employer] CON[employer]ER [employer] Work Phone: [facility] 08-04-2022 13:58-0500 Body temperature 97.39 [degF] Jayden Connelly MOSS BLEACHER.[employer] CONTAINER [employer] Work Phone: [facility] 08-04-2022 13:58-0500 Body weight 85.37 kg Jayden Connelly MOSS BLEACHER.[employer] CON[employer]ER [employer] Work Phone: [facility] 08-04-2022 13:58-0500 Diastolic blood pressure 80 mm[Hg] Jayden Connelly MOSS BLEACHER.[employer] CON[employer]ER [employer] Work Phone: [facility] 08-04-2022 13:58-0500 Heart rate 76 /min Jayden Connelly APRN.[employer]ER [employer] Work Phone: [facility] 08-04-2022 13:58-0500 Respiratory rate 16 /min Jayden Connelly APRN.[employer]ER [employer] Work Phone: [facility] 08-04-2022 13:58-0500 SaO2% (BldA) [Mass fraction] 98 % Jayden Connelly APRN.[employer]ER [employer] Work Phone: [facility] 08-04-2022 13:58-0500 Systolic blood pressure 149 mm[Hg] Jayden Connelly APRN.[employer] CON[employer]ER [employer] Work Phone: [facility] 06-23-2022 13:57-0500 Body height 158.8 cm Rinku Ramsey MD Work Phone: [facility] 06-23-2022 13:57-0500 Body temperature 97.59 [degF] Rinku Ramsey MD Work Phone: [facility] 06-23-2022 13:57-0500 Body weight 88.27 kg Rinku Ramsey MD Work Phone: [facility] 06-23-2022 13:57-0500 Diastolic blood pressure 88 mm[Hg] Rinku Ramsey MD Work Phone: [facility] 06-23-2022 13:57-0500 Heart rate 66 /min Rinku Ramsey MD Work Phone: [facility] 06-23-2022 13:57-0500 Respiratory rate 16 /min Rinku Ramsey MD Work Phone: [facility] 06-23-2022 13:57-0500 SaO2% (BldA) [Mass fraction] 100 % Rinku Ramsey MD Work Phone: [facility] 06-23-2022 13:57-0500 Systolic blood pressure 156 mm[Hg] Rinku Ramsey MD Work Phone: [facility] 05-12-2022 14:19-0400 Diastolic blood pressure 80 mm[Hg] Jayden Connelly APRN.[employer]ER [employer] Work Phone: [facility] 05-12-2022 14:19-0400 Systolic blood pressure 158 mm[Hg] Jayden Connelly APRN.[employer] Work Phone: [facility] 05-12-2022 14:13-0400 Body height 158.8 cm Jayden Connelly APRN.[employer]ER [employer] Work Phone: [facility] 05-12-2022 14:13-0400 Body temperature 97.81 [degF] Jayden Connelly APRN.[employer] Work Phone: [facility] 05-12-2022 14:13-0400 Body weight 88.27 kg Jayden Connelly APRN.[employer]ER [employer] Work Phone: [facility] 05-12-2022 14:13-0400 Heart rate 76 /min Jayden Connelly APRN.[employer] Work Phone: [facility] 05-12-2022 14:13-0400 Respiratory rate 18 /min Jayden Connelly APRN.[employer] Work Phone: [facility] 05-12-2022 14:13-0400 SaO2% (BldA) [Mass fraction] 98 % Jayden Connelly APRN.[employer] Work Phone: [facility] 03-31-2022 13:55-0400 Body height 158.8 cm Rinku Ramsey MD Work Phone: [facility] 03-31-2022 13:55-0400 Body temperature 97.7 [degF] Rinku Ramsey MD Work Phone: [facility] 03-31-2022 13:55-0400 Body weight 88.72 kg Rinku Ramsey MD Work Phone: [facility] 03-31-2022 13:55-0400 Diastolic blood pressure 83 mm[Hg] Rinku Ramsey MD Work Phone: [facility] 03-31-2022 13:55-0400 Heart rate 66 /min Rinku Ramsey MD Work Phone: [facility] 03-31-2022 13:55-0400 Respiratory rate 16 /min Rinku Ramsey MD Work Phone: [facility] 03-31-2022 13:55-0400 SaO2% (BldA) [Mass fraction] 95 % Rinku Ramsey MD Work Phone: [facility] 03-31-2022 13:55-0400 Systolic blood pressure 173 mm[Hg] Rinku Ramsey MD Work Phone: [facility] 02-11-2022 13:41-0400 Body height 158.8 cm Jayden Connelly APRN.[employer]ER [employer] Work Phone: [facility] 02-11-2022 13:41-0400 Body temperature 97.3 [degF] Jayden Connelly APRN.[employer]ER [employer] Work Phone: [facility] 02-11-2022 13:41-0400 Body weight 89.18 kg Jayden Connelly APRN.[employer]ER [employer] Work Phone: [facility] 02-11-2022 13:41-0400 Diastolic blood pressure 83 mm[Hg] Jayden Connelly APRN.[employer]ER [employer] Work Phone: [facility] 02-11-2022 13:41-0400 Heart rate 79 /min Jayden Connelly MOSS BLEACHER.[employer]ER [employer] Work Phone: [facility] 02-11-2022 13:41-0400 Respiratory rate 16 /min Jayden Connelly MOSS BLE[employer]ER.[employer] Work Phone: [facility] 02-11-2022 13:41-0400 SaO2% (BldA) [Mass fraction] 99 % Jayden Connelly MOSS B[employer]ER.[employer] Work Phone: [facility] 02-11-2022 13:41-0400 Systolic blood pressure 159 mm[Hg] Jayden Connelly MOSS BLE[employer]ER.[employer] Work Phone: [facility] 12-17-2021 14:41-0400 Body height 158.8 cm Jayden Connelly APRN.B[employer] CON[employer]ER [employer] Work Phone: [facility] 12-17-2021 14:41-0400 Body temperature 97.3 [degF] Jayden Connelly MOSS BLEACHER.[employer] Work Phone: [facility] 12-17-2021 14:41-0400 Body weight 87.64 kg Jayden Connelly APRN.[employer] Work Phone: [facility] 12-17-2021 14:41-0400 Diastolic blood pressure 80 mm[Hg] Jayden Connelly APRN.[employer] Work Phone: [facility] 12-17-2021 14:41-0400 Heart rate 75 /min Jayden Connelly APRN.[employer] Work Phone: [facility] 12-17-2021 14:41-0400 Respiratory rate 16 /min Jayden Connelly APRN.[employer] Work Phone: [facility] 12-17-2021 14:41-0400 SaO2% (BldA) [Mass fraction] 96 % Jayden Connelly APRN.[employer] Work Phone: [facility] 12-17-2021 14:41-0400 Systolic blood pressure 154 mm[Hg] Jayden Connelly APRN.CNP Work Phone: [facility] 11-10-2021 15:00-0400 Body height 160.02 cm Gilson Tyrel Other [employer] Other 11-10-2021 15:00-0400 Body mass index (BMI) [Ratio] 34.18 kg/m2 Gilson Tyrel Other [employer] Other 11-10-2021 15:00-0400 Body temperature 97.1 [degF] Gislon Tyrel Other [employer] Other 11-10-2021 15:00-0400 Body weight 87.54 kg Gilson Tyrel Other [employer] Other 11-10-2021 15:00-0400 Diastolic blood pressure 70 mm[Hg] Gilson Tyrel Other [employer] Other 11-10-2021 15:00-0400 Respiratory rate 18 /min Gilson Tyrel Other [employer] Other 11-10-2021 15:00-0400 SaO2% (BldA) [Mass fraction] 96 % Gilson Tyrel Other [employer] Other 11-10-2021 15:00-0400 Systolic blood pressure 154 mm[Hg] Gilson Tyrel Other [employer] Other 10-28-2021 11:27-0400 Body height 158.8 cm Rinku Ramsey MD Work Phone: [facility] 10-28-2021 11:27-0400 Body temperature 97.39 [degF] Rinku Ramsey MD Work Phone: [facility] 10-28-2021 11:27-0400 Body weight 87.82 kg Rinku Ramsey MD Work Phone: [facility] 10-28-2021 11:27-0400 Diastolic blood pressure 91 mm[Hg] Rinku Ramsey MD Work Phone: [facility] 10-28-2021 11:27-0400 Heart rate 75 /min Rinku Ramsey MD Work Phone: [facility] 10-28-2021 11:27-0400 Respiratory rate 16 /min Rinku Ramsey MD Work Phone: [facility] 10-28-2021 11:27-0400 SaO2% (BldA) [Mass fraction] 96 % Rinku Ramsey MD Work Phone: [facility] 10-28-2021 11:27-0400 Systolic blood pressure 157 mm[Hg] Rinku Ramsey MD Work Phone: [facility] Encounters Encounter Date Encounter Type Care Provider Facility Start: 04-10-2024 End: 04-10-2024 ambulatory BLAISE ALEX [facility] Start: 04-09-2024 End: 04-09-2024 Orders Only Blaise GONZALEZ Work Phone: [facility] Comment on above: Pain in left leg Start: 04-09-2024 End: 04-09-2024 Telephone encounter Betsy Pimentel RN Hematology/Oncology Comment on above: Thyroid fine needle biopsy at [facility] Start: 04-09-2024 End: 04-09-2024 ambulatory BLAISE ALEX Not Available Start: 04-09-2024 End: 04-09-2024 ambulatory BLAISE ALEX Not Available Start: 04-09-2024 End: 04-09-2024 Office outpatient visit 25 minutes Blaise Alex PA Work Phone: [facility] Comment on above: Left leg pain (Prima ry Dx) Start: 04-05-2024 End: 04-05-2024 Patient encounter procedure [facility] Provider [facility] Department Start: 04-04-2024 End: 04-04-2024 [facility] Start: 04-02-2024 End: 04-05-2024 Refill Krista Harden [facility] Work Phone: [facility] Comment on above: Refill Request Start: 03-05-2024 End: 03-05-2024 Nursing evaluation of patient and report Ma Nurse Clarence Gaona Work Phone: Hematology/Oncology Comment on above: [...] syndrome Start: 03-05-2024 End: 03-05-2024 ambulatory RINKU RAMSEY Facility:[facility] Start: 03-04-2024 End: 03-04-2024 ambulatory STEPHANIE DUMONT Not Available Start: 03-01-2024 End: 03-01-2024 ambulatory STEPHANIE DUMONT [facility] Start: 02-12-2024 End: 02-12-2024 ambulatory STEPHANIE JASMINEZ Not Available Start: 02-06-2024 End: 02-06-2024 ambulatory [facility] Ambulatory Start: 02-02-2024 End: 02-02-2024 Office outpatient visit 15 minutes Rinku Ramsey MD Work Phone: Hematology/Oncology Comment on above: Chronic ITP (idiopat hic thrombocytopenia) (HCC) (Primary Dx); Essential hypertension; Obstructive sleep apnea syndrome; Stage 3b chronic kidney disease (HCC) Start: 02-02-2024 End: 02-02-2024 ambulatory RINKU ABHYANKAR Facility:[facility] Start: 01-25-2024 Refill Betsy Pimentel RN Hemat ology/Oncology Comment on above: Refill Request Start: 01-19-2024 Refill Jayden Connelly APRN.CNP Work Phone: Hematology/Oncology Comment on above: Refill Request Start: 01-02-2024 End: 01-02-2024 ambulatory [facility] Amb[facility] Start: 12-18-2023 End: 12-18-2023 ambulatory [facility] Start: 12-18-2023 End: 12-18-2023 Encounter for other preprocedural examination [facility] Start: 12-18-2023 End: 12-18-2023 Preoperative state Susanna Graf MD Work Phone: [facility] Start: 12-18-2023 End: 12-18-2023 Subsequent hospital visit by physician Susanna Graf MD Work Phone: [facility] Comment on above: Cholesteatoma of lef t ear (Primary Dx); Preoperative clearance; Post-operative pain Start: 12-15-2023 End: 12-15-2023 Nursing evaluation of patient and report Matteo Gaona Work Phone: Hematology/Oncology Comment on above: Preoperative examina tion (Primary Dx) Start: 12-15-2023 End: 12-15-2023 Preprocedural examination done Matteo Gaona Work Phone: [facility] Start: 12-15-2023 End: 12-15-2023 ambulatory [facility] Facility:[facility] Start: 11-28-2023 Telephone encounter Linda holder RN Work Phone: Hematology/Oncology Comment on above: Call Request Start: 11-28-2023 End: 11-28-2023 ambulatory STEPHANIE DUMONT Not Available Start: 11-24-2023 End: 11-24-2023 Office outpatient visit 25 minutes Rinku Ramsey MD Work Phone: Hematology/Oncology Comment on above: Chronic ITP (idiopat hic thrombocytopenia) (HCC) (Primary Dx); Stage 3b chronic kidney disease (HCC); Secondary hypertension; Obstructive sleep apnea syndrome Start: 11-24-2023 End: 11-24-2023 ambulatory RINKU ROXY Facility:[facility] Start: 11-14-2023 End: 11-14-2023 Subsequent hospital visit by physician K[id number] [facility] Comment on above: Cholesteatoma of lef t ear Start: 11-14-2023 End: 11-14-2023 ambulatory [facility] Start: 11-14-2023 End: 11-14-2023 Office outpatient new 45 minutes Susanna Graf MD Work Phone: [facility] Comment on above: Cholesteatoma of lef t ear; Perforation of left tympanic membrane Start: 11-14-2023 End: 11-14-2023 ambulatory [facility] Ambulatory Start: 10-13-2023 End: 10-13-2023 ambulatory ANA PHOENIX Facility:[facility] Start: 09-02-2023 Refill Rinku lawrence MD Work [...] Start: 08-28-2023 End: 08-28-2023 ambulatory RINKU RAMSEY Facility:[facility] Start: 08-23-2023 Tamy fontana MD Work Phone: [facility] Start: 08-23-2023 Tamy fontana MD Work Phone: [facility] [...] Start: 07-17-2023 End: 07-17-2023 ambulatory RINKU RAMSEY Facility:[facility] Start: 06-28-2023 Office outpatient vi sit 15 minutes Gilson Sarah [facility] [place] Start: 06-28-2023 End: 06-28-2023 ambulatory Gilson Tyrel [facility] [employer] Other Start: 06-06-2023 End: 06-06-2023 ambulatory STEPHANIE DUMONT Not Available Start: 06-05-2023 End: 06-05-2023 ambulatory Ana Phoenix PA-C Work Phone: Hematology/Oncology Comment on above: Chronic ITP (idiopat hic thrombocytopenia) (HCC) (Primary Dx); Essential hypertension; Hypertension, unspecified type Start: 06-05-2023 End: 06-05-2023 Patient encounter procedure Ana Phoenix PA-C Work Phone: [facility] Start: 05-01-2023 Refill Krista Calvo cierraemilia [facility] Work Phone: Hematology/Oncology Comment on above: Refill Request Start: 04-20-2023 End: 04-20-2023 Office outpatient visit 25 minutes Rinku Ramsey MD Work Phone: Hematology/Oncology Comment on above: Chronic ITP (idiopat hic thrombocytopenia) (HCC) (Primary Dx); Essential hypertension Start: 04-20-2023 End: 04-20-2023 ambulatory RINKU RAMSEY Facility:[facility] Start: 04-19-2023 Telephone encounter Rinku hicks MD Work Phone: Hematology/Oncology Comment on above: Lab Orders Start: 04-05-2023 End: 04-05-2023 ambulatory Gilson Tyrel Other [employer] Other Start: 04-05-2023 Telephone encounter Gilson Tyrel [facility] Start: 03-14-2023 End: 03-14-2023 ambulatory Gilson Tyrel Other [employer] Other Start: 03-14-2023 Telephone encounter Gilson Tyrel [facility] Start: 03-09-2023 End: 03-09-2023 Office outpatient visit 15 minutes Rinku Ramsey MD Work Phone: Hematology/Oncology Comment on above: Chronic ITP (idiopat hic thrombocytopenia) (HCC) (Primary Dx); Essential hypertension; Obstructive sleep apnea syndrome; Systemic lupus erythematosus, unspecified SLE type, unspecified organ involvement status (HCC) Start: 01-26-2023 End: 01-26-2023 Office outpatient visit [...] (HCC) (Primary Dx) Start: 10-21-2022 Refill Rinku larwence MD Work Phone: Hematology/Oncology Comment on above: [...] 09-07-2022 End: 09-07-2022 ambulatory Gilson Sarah Other [employer] Other Start: 09-07-2022 Office outpatient vi sit 25 minutes Gilson Sarah [facility] [place] Start: 08-29-2022 End: 08-29-2022 ambulatory NON STAFF Facility:[facility] Start: 08-29-2022 End: 08-29-2022 ambulatory NON STAFF [facility] Work Phone: Start: 08-29-2022 End: 08-29-2022 Patient encounter procedure MD Gilson Sarah Work Phone: [facility] [place] Work Phone: Start: 08-15-2022 Refill Jayden Connelly [employer] Work Phone: Hematology/Oncology Comment on above: Refill Request Start: 08-05-2022 Refill Jayden Connelly [employer] Work Phone: Hematology/Oncology Comment on above: Refill Request Start: 08-04-2022 End: 08-04-2022 ambulatory Jayden Connelly APRN.[facility] Work Phone: Hematology/Oncology Comment on above: Chronic ITP (idiopat hic thrombocytopenia) (HCC) (Primary Dx); Obstructive sleep apnea syndrome; Hypertension, unspecified type; Systemic lupus erythematosus, unspecified SLE type, unspecified organ involvement status (HCC); Malaise and fatigue; Skin lesion of right lower extremity Start: 08-04-2022 End: 08-04-2022 Patient encounter procedure Jayden Connelly APRN.[facility] Work Phone: [facility] Start: 08-04-2022 Telephone encounter Jayden christiansen APRN.[facility] Work Phone: [facility] Comment on above: Referral Information (Dermatology) Start: 07-24-2022 Refill Jayden Connelly APRN.[facility] Work Phone: Hematology/Oncology Comment on above: [...] Rinku Ramsey MD Work Phone: [facility] Start: 06-23-2022 Refill Rinku lawrence MD Work Phone: Hematology/Oncology Comment on above: Refill Request Start: 06-15-2022 Refill Jayden Connelly APRN.[facility] Work Phone: Hematology/Oncology Comment on above: Refill Request Start: 05-20-2022 Refill Rinku lawrence MD Work Phone: Hematology/Oncology Comment on above: Refill Request Start: 05-12-2022 End: 05-12-2022 ambulatory Jayden Connelly APRN.[employer] Work Phone: Hematology/Oncology Comment on above: Chronic ITP (idiopat hic thrombocytopenia) (HCC) (Primary Dx); Obstructive sleep apnea syndrome; Essential hypertension Start: 05-12-2022 End: 05-12-2022 Patient encounter procedure Jayden Connelly APRN.[employer] Work Phone: [facility] Start: 04-24-2022 Refill Jayden Connelly APRN.[employer] Work Phone: Hematology/Oncology Comment on above: Refill Request Start: 03-31-2022 End: 03-31-2022 ambulatory Rinku Ramsey MD Work Phone: Hematology/Oncology Comment on above: Chronic ITP (idiopat hic thrombocytopenia) (HCC) (Primary Dx); Obstructive sleep apnea syndrome Start: 03-31-2022 End: 03-31-2022 Patient encounter procedure Rinku Ramsey MD Work Phone: [facility] Start: 03-06-2022 Refill Rinku lawrence MD Work Phone: Hematology/Oncology Comment on above: Refill Request Start: 03-05-2022 Refill Jayden Connelly APRN.[facility] Work Phone: Hematology/Oncology Comment on above: Refill Request Start: 02-11-2022 End: 02-11-2022 ambulatory Jayden Connelly APRN.[employer] Work Phone: Hematology/Oncology Comment on above: Chronic ITP (idiopat hic thrombocytopenia) (HCC) (Primary Dx); Essential hypertension; Obstructive sleep apnea syndrome; Systemic lupus erythematosus, unspecified SLE type, unspecified organ involvement status (HCC) Start: 02-11-2022 End: 02-11-2022 Patient encounter procedure Jayden Connelly APRN.[facility] Work Phone: [facility] Start: 02-03-2022 Refill Jayden Connelly APRN.[facility] Work Phone: Hematology/Oncology Comment on above: Refill Request Start: 01-15-2022 Refill Jayden Connelly [employer] Work Phone: Hematology/Oncology Comment on above: Refill Request Start: 01-09-2022 Refill Jayden Connelly [employer] Work Phone: Hematology/Oncology Comment on above: Refill Request Start: 12-17-2021 End: 12-17-2021 ambulatory Jayden Connelly APRN.[facility] Work Phone: Hematology/Oncology Comment on above: Chronic ITP (idiopat hic thrombocytopenia) (HCC) (Primary Dx); Hypertension, unspecified type; Essential hypertension; Obstructive sleep apnea syndrome; Lung nodules; Systemic lupus erythematosus, unspecified SLE type, unspecified organ involvement status (HCC) Start: 12-17-2021 End: 12-17-2021 Patient encounter procedure Jayden Connelly APRN.[facility] Work Phone: [facility] Start: 11-10-2021 End: 11-10-2021 ambulatory Gilson Sarah Other [employer] Other Start: 11-10-2021 Office outpatient ne w 45 minutes Gilson Sarah [facility] [place] Start: 10-28-2021 End: 10-28-2021 ambulatory Rinku Ramsey MD Work Phone: Hematology/Oncology Comment on above: Chronic ITP (idiopat hic thrombocytopenia) (HCC) (Primary Dx); Essential hypertension; Obstructive sleep apnea syndrome; Lung nodules; Systemic lupus erythematosus, unspecified SLE type, unspecified organ involvement status (HCC) Start: 10-28-2021 End: 10-28-2021 Patient encounter procedure Rinku Ramsey MD Work Phone: [facility] Start: 10-25-2021 ambulatory [facility] Tidwell [facility] Comment on above: Population Health Na vigation Outreach (ACO PCP) Start: 10-19-2021 Refill Jayden Connelly APRN.[employer] Work Phone: Hematology/Oncology Comment on above: Refill Request Start: 05-07-2021 Telephone encounter Luanne Denisse itt [facility] Work Phone: [facility] Comment on above: Medication Follow-up ([employer] free drug application faxed) Start: 05-24-2016 End: 05-25-2016 Ambulatory COTY WRIGHT Facility:[facility] Procedures Date Procedure Procedure Detail Performing Clinician Start: 12-18-2023 PULSE OXIMETRY, CONTINUOUS Lizeth Woodward MD Work Phone: Start: 12-15-2023 Ecg routine ecg w/le ast 12 lds i&r only [facility] Provider Start: 12-15-2023 Antibody screen RINKU SANCHEZ Comment on above: Order Comment: Speci men Type: BLOOD SPECIMEN Ordering Facility: [facility] Address: [address] [place] [address] Performed By: #### 5 [id number], [id number], [id number], [id number] #### [facility] CLIA [id number] [address] [place] [address] [place] Start: 11-14-2023 CASE REQUEST OPERATING ROOM SUSANNA GRAF Start: 11-14-2023 CT IAC WO IV CONTRAST S EUGENIA GRAF Start: 11-14-2023 Ct orbit sella/post fossa/ear w/o contrast matrl Susanna Graf MD Work Phone: Start: 08-16-2023 AUDITORY FUNCTION TESTS Karissa Alejandre CCC-A Work Phone: Start: 05-19-2023 Mammography Karissa Hussein CCC-A Work Phone: Start: 08-29-2022 Ultrasonography of b ilateral kidneys MD Gilson Sarah Work Phone: Start: 07-25-2022 Colonoscopy Jayden christiansen [employer] Work Phone: Start: 02-11-2022 Adult depression scr eening assessment Jayden Connelly [employer] Work Phone: Start: 08-05-2021 Adult depression scr eening assessment Jayden Connelly [employer] Work Phone: Start: 03-30-2017 Lipid 1996 panel - S henok or Plasma Rinku Ramsey MD Work Phone: Plan of Treatment Date Care Activity Detail Author Start: 07-25-2032 Screening for malignant neoplasm of colon [facility] Start: 07-25-2027 Screening for malignant neoplasm of colon Colonoscopy [facility] Start: 03-05-2027 Diabetes Screening Diabetes Screening [facility] Start: 02-01-2027 Diabetes Screening Diabetes Screening [facility] Start: 12-14-2026 Diabetes Screening Diabetes Screening [facility] Start: 11-23-2026 Diabetes Screening Diabetes Screening [facility] Start: 08-28-2026 Diabetes Screening Diabetes Screening [facility] Start: 06-05-2026 Diabetes Screening Diabetes Screening [facility] Start: 04-20-2026 Diabetes Screening Diabetes Screening [facility] Start: 03-09-2026 DIABETES SCREEN DIABETES SCREEN [facility] Start: 03-09-2026 Diabetes Screening Diabetes Screening [facility] Start: 01-26-2026 DIABETES SCREEN DIABETES SCREEN [facility] Start: 12-15-2025 DIABETES SCREEN DIABETES SCREEN [facility] Start: 10-27-2025 DIABETES SCREEN DIABETES SCREEN [facility] Start: 09-15-2025 DIABETES SCREEN DIABETES SCREEN [facility] Start: 08-04-2025 DIABETES SCREEN DIABETES SCREEN [facility] Start: 06-23-2025 DIABETES SCREEN DIABETES SCREEN [facility] Start: 05-12-2025 DIABETES SCREEN DIABETES SCREEN [facility] Start: 03-31-2025 DIABETES SCREEN DIABETES SCREEN [facility] Start: 03-05-2025 BP Controlled (<130/80) BP Controlled (<130/80) [facility] Start: 02-11-2025 DIABETES SCREEN DIABETES SCREEN [facility] Start: 12-17-2024 DIABETES SCREEN DIABETES SCREEN [facility] Start: 10-28-2024 DIABETES SCREEN DIABETES SCREEN [facility] Start: 09-16-2024 DIABETES SCREEN DIABETES SCREEN [facility] Start: 05-19-2024 Screening for malignant neoplasm of breast Mammogram [facility] Start: 05-14-2024 End: 05-14-2024 Patient encounter procedure 05/14/2024 10:30 AM EST Office Visit [facility] [address] [address] Stephanie Dumont, JORDI [address] [place] [address] [facility] Start: 05-08-2024 Medicare Annual Wellness (AWV) Medicare Annual Wellness (AWV) [facility] Start: 04-29-2024 End: 04-29-2024 Patient encounter procedure 04/29/2024 10:30 AM EDT Office Visit [facility] [address] [place] [id number] Jr. Ambrose Avalos, DO [address] [place] [address] [facility] Start: 04-18-2024 End: 04-18-2024 Nursing evaluation of patient and report Hematology/Oncology Comment on above: 6 week follow up and labs abd B 12 inj 6 week follow up and labs abd B 12 inj (seeing LOULOU too) Start: 04-18-2024 End: 04-18-2024 Follow-up encounter 04/18/2024 11:15 AM EDT Visit (SP) Office Hematology/Oncology [address] [place] [address] Rinku Ramsey MD [address] [place] [address] 6 week follow up and labs abd B 12 inj Hematology/Oncology Comment on above: 6 week follow up and labs abd B 12 inj Start: 04-18-2024 End: 04-18-2024 Patient encounter procedure 04/18/2024 11:00 AM EDT Office Visit [facility] [address] [place] [address] [place] [address] 6 week follow up and labs abd B 12 inj [facility] Comment on above: 6 week follow up and labs abd B 12 inj Start: 04-16-2024 End: 03-05-2025 CBC W Auto Differential panel - Blood COMPLETE BLOOD COUNT AND DIFFERENTIAL Lab Routine 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 deficiency Chronic ITP (idiopathic thrombocytopenia) (HCC) Expected: 04/16/2024 (Approximate), Expires: 03/05/2025 [facility] Comment on above: Expected: 04/16/2024 (Approximate), Expi res: 03/05/2025 Start: 04-16-2024 End: 03-05-2025 Cobalamin (Vitamin B12) [Mass/volume] in Serum or Plasma VITAMIN B12 Lab Routine 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 deficiency Expected: 04/16/2024 (Approximate), Expires: 03/05/2025 [facility] Comment on above: Expected: 04/16/2024 (Approximate), Expi res: 03/05/2025 Start: 04-16-2024 End: 03-05-2025 Comprehensive metabolic 2000 panel - Serum or Plasma COMPREHENSIVE METABOLIC PANEL Lab Routine 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 deficiency Expected: 04/16/2024 (Approximate), Expires: 03/05/2025 [facility] Comment on above: Expected: 04/16/2024 (Approximate), Expi res: 03/05/2025 Start: 04-16-2024 End: 07-16-2024 Erythropoietin (EPO) [Units/volume] in Serum or Plasma ERYTHROPOIETIN/EPO Lab Routine 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 deficiency Expected: 04/16/2024 (Approximate), Expires: 07/16/2024 [facility] Work Phone: Comment on above: Expected: 04/16/2024 (Approximate), Expi res: 07/16/2024 Start: 04-16-2024 End: 03-05-2025 Ferritin [Mass/volume] in Serum or Plasma FERRITIN Lab Routine 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 deficiency Expected: 04/16/2024 (Approximate), Expires: 03/05/2025 [facility] Comment on above: Expected: 04/16/2024 (Approximate), Expi res: 03/05/2025 Start: 04-16-2024 End: 03-05-2025 Folate [Mass/volume] in Serum or Plasma FOLATE, SERUM Lab Routine 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 deficiency Expected: 04/16/2024 (Approximate), Expires: 03/05/2025 [facility] Comment on above: Expected: 04/16/2024 (Approximate), Expi res: 03/05/2025 Start: 04-16-2024 End: 03-05-2025 Iron and Iron binding capacity panel - Serum or Plasma IRON AND TIBC Lab Routine 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 deficiency Expected: 04/16/2024 (Approximate), Expires: 03/05/2025 [facility] Comment on above: Expected: 04/16/2024 (Approximate), Expi res: 03/05/2025 Start: 04-16-2024 End: 07-16-2024 RETICULOCYTE COUNT RETICULOCYTE COUNT Lab Routine 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 deficiency Expected: 04/16/2024 (Approximate), Expires: 07/16/2024 [facility] Comment on above: Expected: 04/16/2024 (Approximate), Expi res: 07/16/2024 Start: 04-09-2024 End: 04-09-2025 C reactive protein [Mass/volume] in Serum or Plasma C-reactive protein Lab Routine Left leg pain Expected: 04/09/2024 (Approximate), Expires: 04/09/2025 [facility] Comment on above: Expected: 04/09/2024 (Approximate), Expi res: 04/09/2025 Start: 04-09-2024 End: 04-09-2025 C-reactive protein C-reactive protein Lab Routine Pain in left leg Expected: 04/09/2024, Expires: 04/09/2025 [facility] Work Phone: Comment on above: Expected: 04/09/2024, Expires: Start: 04-09-2024 End: 04-09-2025 Erythrocyte sedimentation rate [facility] Work Phone: Comment on above: Expected: 04/09/2024, Expires: Expected: 04/09/2024 (Approximate), Expires: 04/09/2025 Start: 04-09-2024 End: 04-09-2025 NM Whole body Bone 3 Phase Views NM bone 3 phase Imaging Routine Left leg pain Expected: 04/09/2024 (Approximate), Expires: 04/09/2025 [facility] Comment on above: Expected: 04/09/2024 (Approximate), Expi res: 04/09/2025 Start: 03-15-2024 End: 02-01-2025 CBC W Auto Differential panel - Blood COMPLETE BLOOD COUNT AND DIFFERENTIAL Lab Routine Chronic ITP (idiopathic thrombocytopenia) (HCC) Essential hypertension Obstructive sleep apnea syndrome Stage 3b chronic kidney disease (HCC) Expected: 03/15/2024 (Approximate), Expires: 02/01/2025 [facility] Comment on above: Expected: 03/15/2024 (Approximate), Expi res: 02/01/2025 Start: 03-15-2024 End: 02-01-2025 Comprehensive metabolic 2000 panel - Serum or Plasma COMPREHENSIVE METABOLIC PANEL Lab Routine Chronic ITP (idiopathic thrombocytopenia) (HCC) Essential hypertension Obstructive sleep apnea syndrome Stage 3b chronic kidney disease (HCC) Expected: 03/15/2024 (Approximate), Expires: 02/01/2025 [facility] Comment on above: Expected: 03/15/2024 (Approximate), Expi res: 02/01/2025 Start: 03-15-2024 End: 02-01-2025 Lactate dehydrogenase [Enzymatic activity/volume] in Serum or Plasma LACTATE DEHYDROGENASE Lab Routine Chronic ITP (idiopathic thrombocytopenia) (HCC) Essential hypertension Obstructive sleep apnea syndrome Stage 3b chronic kidney disease (HCC) Expected: 03/15/2024 (Approximate), Expires: 02/01/2025 [facility] Work Phone: Comment on above: Expected: 03/15/2024 (Approximate), Expi res: 02/01/2025 Start: 03-15-2024 End: 03-15-2024 Follow-up encounter 03/15/2024 1:15 PM EDT Visit (SP) Office Hematology/Oncology [address] [place] [address] Rinku Ramsey MD [address] [place] [address] 6 week follow up and labs Hematology/Oncology Comment on above: 6 week follow up and labs Start: 03-15-2024 End: 03-15-2024 Patient encounter procedure 03/15/2024 1:00 PM EDT Office Visit [facility] [address] [place] [address] 6 week follow up and labs [facility] Comment on above: 6 week follow up and labs Start: 03-10-2024 COVID-19 Vaccine ( season) COVID-19 Vaccine ( season) [facility] Start: 03-10-2024 Covid-19 Vaccine ( season) Covid-19 Vaccine ( season) [facility] Start: 03-10-2024 Influenza vaccination Influenza Vaccine (#1) [facility] Start: 02-02-2024 End: 02-02-2024 Follow-up encounter 02/02/2024 1:30 PM EDT Visit (SP) Office Hematology/Oncology [address] [place] [address] [place] [address] Rinku Ramsey MD [address] [place] [address] 6 week follow up and labs Hematology/Oncology Comment on above: 6 week follow up and labs Start: 02-02-2024 End: 02-02-2024 Patient encounter procedure [facility] Comment on above: 11/28- to schedule appts for outsid e lab orders & EKG from Dr Royal-already scanned & entered 6 week follow up and labs Start: 01-05-2024 End: 01-05-2024 Follow-up encounter 01/05/2024 11:45 AM EDT Visit (SP) Office Hematology/Oncology [address] [place] [address] Rinku Ramsey MD [address] [place] [address] 6 week follow up and labs Hematology/Oncology Comment on above: 6 week follow up and labs Start: 01-05-2024 End: 01-05-2024 Patient encounter procedure [facility] Comment on above: 6 week follow up and labs 11/28- to sched ule appts for outside lab orders & EKG from Dr Royal-already scanned & entered Start: 01-02-2024 End: 01-02-2024 Patient encounter procedure 01/02/2024 1:15 PM EDT Office Visit [facility] [address] [place] [address] [place] [address] [place] [address] [facility] Start: 12-22-2023 Adult BMI Screening Adult BMI Screening [facility] Start: 12-18-2023 End: 12-18-2023 Tmpp mastoidect ntc/rcnsted canal wall ocr Tympanomastoidectomy Cholesteatoma of left ear 12/18/2023 7:45 AM EDT [facility] A OR Start: 11-14-2023 End: 11-13-2024 Request for Pre-Admission Testing Visit Request for Pre-Admission Testing Visit Procedures Routine Cholesteatoma of left ear Expected: 11/14/2023 (Approximate), Expires: 11/13/2024 [facility] Service Area Work Phone: Comment on above: Expected: 11/14/2023 (Approximate), Expi res: 11/13/2024 Start: 09-24-2023 COVID-19 Vaccine ( season) COVID-19 Vaccine () [facility] Start: 08-30-2023 Tobacco Screening Tobacco Screening [facility] Start: 08-23-2023 End: 08-23-2023 Patient encounter procedure 08/23/2023 10:00 AM EST Office Visit [facility] [address] [facility] [address] [place] [address] Mar Maoy MD [address] [facility] [address] [place] [address] [facility] Start: 07-25-2023 Colonoscopy COLONOSCOPY [facility] Start: 07-25-2023 COLORECTAL CANCER SCREENING COLORECTAL CANCER SCREENING [facility] Start: 07-25-2023 Screening for malignant neoplasm of colon [facility] Start: 07-21-2023 Covid-19 Vaccine () Covid-19 Vaccine () [facility] Start: 07-17-2023 End: 10-16-2023 CBC W Auto Differential panel - Blood CBC + DIFF Lab Routine Chronic ITP (idiopathic thrombocytopenia) (HCC) Essential hypertension Expected: 07/17/2023 (Approximate), Expires: 10/16/2023 [facility] Work Phone: Comment on above: Expected: 07/17/2023 (Approximate), Expi res: 10/16/2023 Start: 07-17-2023 End: 10-16-2023 Comprehensive metabolic 2000 panel - Serum or Plasma COMP METABOLIC PANEL Lab Routine Chronic ITP (idiopathic thrombocytopenia) (HCC) Essential hypertension Expected: 07/17/2023 (Approximate), Expires: 10/16/2023 [facility] Work Phone: Comment on above: Expected: 07/17/2023 (Approximate), Expi res: 10/16/2023 Start: 07-10-2023 Advance Directive Discussion Advance Directive Discussion [facility] Start: 07-10-2023 Behavioral Health Screening Behavioral Health Screening [facility] Start: 07-10-2023 Depression Assessment Depression Assessment [facility] Start: 04-20-2023 End: 04-19-2024 CBC W Auto Differential panel - Blood CBC + DIFF Lab Routine Chronic ITP (idiopathic thrombocytopenia) (HCC) Expected: 04/20/2023 (Approximate), Expires: 04/19/2024 [facility] Work Phone: Comment on above: Expected: 04/20/2023 (Approximate), Expi res: 04/19/2024 Start: 04-20-2023 End: 04-19-2024 Comprehensive metabolic 2000 panel - Serum or Plasma COMP METABOLIC PANEL Lab Routine Chronic ITP (idiopathic thrombocytopenia) (HCC) Expected: 04/20/2023 (Approximate), Expires: 04/19/2024 [facility] Work Phone: Comment on above: Expected: 04/20/2023 (Approximate), Expi res: 04/19/2024 Start: 04-20-2023 End: 04-19-2024 Lactate dehydrogenase [Enzymatic activity/volume] in Serum or Plasma LD LACTATE DEHYDRO Lab Routine Chronic ITP (idiopathic thrombocytopenia) (HCC) Expected: 04/20/2023 (Approximate), Expires: 04/19/2024 [facility] Work Phone: Comment on above: Expected: 04/20/2023 (Approximate), Expi res: 04/19/2024 Start: 03-10-2023 Covid-19 Vaccine ( season) Covid-19 Vaccine ( season) [facility] Start: 03-10-2023 Influenza vaccination [facility] Start: 02-11-2023 Adult depression screening assessment DEPRESSION SCREENING [facility] Start: 08-05-2022 Adult depression screening assessment DEPRESSION SCREENING [facility] Start: 08-04-2022 End: 06-23-2023 CBC W Auto Differential panel - Blood CBC + DIFF Lab Routine Chronic ITP (idiopathic thrombocytopenia) (HCC) Expected: 08/04/2022 (Approximate), Expires: 06/23/2023 [facility] Work Phone: Comment on above: Expected: 08/04/2022 (Approximate), Expi res: 06/23/2023 Start: 08-04-2022 End: 06-23-2023 Comprehensive metabolic 2000 panel - Serum or Plasma COMP METABOLIC PANEL Lab Routine Chronic ITP (idiopathic thrombocytopenia) (HCC) Expected: 08/04/2022 (Approximate), Expires: 06/23/2023 [facility] Work Phone: Comment on above: Expected: 08/04/2022 (Approximate), Expi res: 06/23/2023 Start: 08-04-2022 End: 06-23-2023 Lactate dehydrogenase [Enzymatic activity/volume] in Serum or Plasma LD LACTATE DEHYDRO Lab Routine Chronic ITP (idiopathic thrombocytopenia) (HCC) Expected: 08/04/2022 (Approximate), Expires: 06/23/2023 [facility] Work Phone: Comment on above: Expected: 08/04/2022 (Approximate), Expi res: 06/23/2023 Start: 08-04-2022 End: 10-04-2022 Nuclear Ab [Presence] in Serum by Immunoassay RAAD PANEL BLOOD SCRN Lab Routine Systemic lupus erythematosus, unspecified SLE type, unspecified organ involvement status (HCC) Expected: 08/04/2022 (Approximate), Expires: 10/04/2022 [facility] Work Phone: Comment on above: Expected: 08/04/2022 (Approximate), Expi res: 10/04/2022 Start: 07-10-2022 ADVANCE DIRECTIVE DISCUSSION ADVANCE DIRECTIVE DISCUSSION [facility] Start: 07-10-2022 DEPRESSION ASSESSMENT DEPRESSION ASSESSMENT [facility] Start: 06-08-2022 COVID-19 VACCINE (5 - Booster for Moderna series) COVID-19 VACCINE (5 - Booster for Moderna series) [facility] Start: 04-02-2022 COVID-19 VACCINE (5 - Booster for Moderna series) COVID-19 VACCINE (5 - Booster for Moderna series) [facility] Start: 04-02-2022 COVID-19 VACCINE (5 - Moderna risk series) COVID-19 VACCINE (5 - Moderna risk series) [facility] Start: 03-30-2022 Lipid 1996 panel - Serum or Plasma Lipid Screening [facility] Start: 03-30-2022 Lipid panel Lipid Screening [facility] Start: 03-30-2022 LIPID SCREEN LIPID SCREEN [facility] Start: 03-25-2022 End: 05-25-2022 CBC W Auto Differential panel - Blood CBC + DIFF Lab Routine Chronic ITP (idiopathic thrombocytopenia) (HCC) Essential hypertension Obstructive sleep apnea syndrome Systemic lupus erythematosus, unspecified SLE type, unspecified organ involvement status (HCC) Expected: 03/25/2022, Expires: 05/25/2022 [facility] Work Phone: Comment on above: Expected: 03/25/2022, Expires: 2 Start: 03-25-2022 End: 05-25-2022 Comprehensive metabolic 2000 panel - Serum or Plasma COMP METABOLIC PANEL Lab Routine Chronic ITP (idiopathic thrombocytopenia) (HCC) Essential hypertension Obstructive sleep apnea syndrome Systemic lupus erythematosus, unspecified SLE type, unspecified organ involvement status (HCC) Expected: 03/25/2022, Expires: 05/25/2022 [facility] Work Phone: Comment on above: Expected: 03/25/2022, Expires: 2 Start: 03-10-2022 Influenza vaccination INFLUENZA (#1) [facility] Start: 01-28-2022 End: 03-30-2022 CBC W Auto Differential panel - Blood CBC + DIFF Lab Routine Hypertension, unspecified type Chronic ITP (idiopathic thrombocytopenia) (HCC) Essential hypertension Obstructive sleep apnea syndrome Lung nodules Systemic lupus erythematosus, unspecified SLE type, unspecified organ involvement status (HCC) Expected: 01/28/2022, Expires: 03/30/2022 [facility] Work Phone: Comment on above: Expected: 01/28/2022, Expires: 2 Start: 01-28-2022 End: 03-30-2022 Comprehensive metabolic 2000 panel - Serum or Plasma COMP METABOLIC PANEL Lab Routine Hypertension, unspecified type Chronic ITP (idiopathic thrombocytopenia) (HCC) Essential hypertension Obstructive sleep apnea syndrome Lung nodules Systemic lupus erythematosus, unspecified SLE type, unspecified organ involvement status (HCC) Expected: 01/28/2022, Expires: 03/30/2022 [facility] Work Phone: Comment on above: Expected: 01/28/2022, Expires: 2 Start: 01-28-2022 End: 03-30-2022 Lactate dehydrogenase [Enzymatic activity/volume] in Serum or Plasma LD LACTATE DEHYDRO Lab Routine Hypertension, unspecified type Chronic ITP (idiopathic thrombocytopenia) (HCC) Essential hypertension Obstructive sleep apnea syndrome Lung nodules Systemic lupus erythematosus, unspecified SLE type, unspecified organ involvement status (HCC) Expected: 01/28/2022, Expires: 03/30/2022 [facility] Work Phone: Comment on above: Expected: 01/28/2022, Expires: Start: 12-09-2021 End: 10-28-2022 CBC W Auto Differential panel - Blood CBC + DIFF Lab Routine Chronic ITP (idiopathic thrombocytopenia) (HCC) Expected: 12/09/2021 (Approximate), Expires: 10/28/2022 [facility] Work Phone: Comment on above: Expected: 12/09/2021 (Approximate), Expi res: 10/28/2022 Start: 12-09-2021 End: 10-28-2022 Comprehensive metabolic 2000 panel - Serum or Plasma COMP METABOLIC PANEL Lab Routine Chronic ITP (idiopathic thrombocytopenia) (HCC) Expected: 12/09/2021 (Approximate), Expires: 10/28/2022 [facility] Work Phone: Comment on above: Expected: 12/09/2021 (Approximate), Expi res: 10/28/2022 Start: 12-09-2021 End: 10-28-2022 Lactate dehydrogenase [Enzymatic activity/volume] in Serum or Plasma LD LACTATE DEHYDRO Lab Routine Chronic ITP (idiopathic thrombocytopenia) (HCC) Expected: 12/09/2021 (Approximate), Expires: 10/28/2022 [facility] Work Phone: Comment on above: Expected: 12/09/2021 (Approximate), Expi res: 10/28/2022 Start: 09-14-2021 COVID-19 VACCINE (4 - Booster for Moderna series) COVID-19 VACCINE (4 - Booster for Moderna series) [facility] Start: 07-10-2021 ADVANCE DIRECTIVE DISCUSSION ADVANCE DIRECTIVE DISCUSSION [facility] Start: 07-10-2021 DEPRESSION ASSESSMENT DEPRESSION ASSESSMENT [facility] Start: 02-17-2018 Screening for malignant neoplasm of breast Mammogram Screening [facility] Start: 12-07-2015 BONE DENSITY BONE DENSITY [facility] Start: 12-07-2015 Bone Density Screening Bone Density Screening [facility] Start: 12-07-2015 Fall Risk Screening Fall Risk Screening [facility] Start: 12-07-2015 Screening for osteoporosis Bone Density Screening [facility] Start: 2010 RSV patients and/or patients aged 60+ years (1 - 1-dose 60+ series) RSV patients and/or patients aged 60+ years (1 - 1-dose 60+ series) [facility] Start: 2010 RSV Vaccine (1 - 1-dose 60+ series) RSV Vaccine (1 - 1-dose 60+ series) [facility] Start: 2010 RSV Vaccine (1 - Risk 60-74 years 1-dose series) RSV Vaccine (1 - Risk 60-74 years 1-dose series) [facility] Start: 2000 Administration of varicella zoster vaccine Zoster (Shingles) Vaccine (1 of 2) [facility] Start: 2000 SHINGRIX VACCINE (1 of 2) SHINGRIX VACCINE (1 of 2) [facility] Start: 2000 Zoster Vaccines (1 of 2) Zoster Vaccines (1 of 2) [facility] Start: 12-07-1995 COLOGUARD (FIT-DNA) COLOGUARD (FIT-DNA) [facility] Start: 12-07-1995 Colonoscopy COLONOSCOPY [facility] Start: 12-07-1995 COLORECTAL CANCER SCREENING COLORECTAL CANCER SCREENING [facility] Start: 12-07-[address] COLONOGRAPHY [facility] Start: 12-07-1995 FECAL OCCULT BLOOD FECAL OCCULT BLOOD [facility] Start: 12-07-1995 Screening for malignant neoplasm of colon [facility] Start: 12-07-1995 SIGMOIDOSCOPY SIGMOIDOSCOPY [facility] Start: 1990 Mammography [facility] Start: 1990 Screening for malignant neoplasm of breast Mammogram [facility] Start: 1972 DTaP/Tdap/Td Vaccines (1 - Tdap) DTaP/Tdap/Td Vaccines (1 - Tdap) [facility] Start: 1969 DTaP,Tdap and Td Vaccines (1 - Tdap) DTaP,Tdap and Td Vaccines (1 - Tdap) [facility] Start: 1969 SHINGRIX VACCINE (1 of 2) SHINGRIX [facility]ACCINE (1 of 2) [facility] Start: 1969 Urine microalbumin profile [facility] Start: 1968 ANNUAL PCP TEAM CHRONIC DISEASE VISIT ANNUAL PCP TEAM CHRONIC DISEASE VISIT [facility] Start: 1968 Anxiety Screening Anxiety Screening [facility] Start: 1968 BP CONTROLLED (<130/80) BP CONTROLLED (<130/80) [facility] in Start: 1968 Depression Screening Depression Screening [facility] Start: 1968 Hepatitis C screening Hepatitis C Screening [facility] Start: 1962 Depression Screening Depression Screening [facility] Start: 1961 Screening for malignant neoplasm of cervix Cervical Cancer Screening [facility] Start: 1950 Lipid panel Lipid Panel [facility] Start: 1950 Medicare Annual Wellness Visit [facility] Start: 1950 Screening for malignant neoplasm of colon [facility] Start: 1950 Screening for osteoporosis Bone Density Scan [facility] End: 03-31-2023 CBC W Auto Differential panel - Blood CBC + DIFF Lab Routine Chronic ITP (idiopathic thrombocytopenia) (HCC) Obstructive sleep apnea syndrome Every 6 weeks for 9 Occurrences starting 03/31/2022 until 03/31/2023 [facility] Work Phone: Comment on above: Every 6 weeks for 9 Occurrences starting 03/31/2022 until 03/31/2023 End: 04-19-2024 CBC W Auto Differential panel - Blood CBC + DIFF Lab Routine Chronic ITP (idiopathic thrombocytopenia) (HCC) Every 6 weeks for 9 Occurrences starting 04/20/2023 until 04/19/2024 [facility] Work Phone: Comment on above: Every 6 weeks for 9 Occurrences starting 04/20/2023 until 04/19/2024 CBC W Auto Different ial panel - Blood CBC and differential Lab Routine Left leg pain Ordered: 04/09/2024 [facility] Work Phone: Comment on above: Ordered: 04/09/2024 End: 12-18-2023 Choriogonadotropin ( test) [Presence] in Urine [facility] Service Area Work Phone: Comment on above: STAT (Lab) for 1 Occurrences starting until 12/18/2023 End: 04-19-2024 Cobalamin (Vitamin B12) [Mass/volume] in Serum or Plasma VITAMIN B12 BLOOD Lab Routine Chronic ITP (idiopathic thrombocytopenia) (HCC) Every 6 weeks for 9 Occurrences starting 04/20/2023 until 04/19/2024 [facility] Work Phone: Comment on above: Every 6 weeks for 9 Occurrences starting 04/20/2023 until 04/19/2024 End: 03-31-2023 Comprehensive metabolic 2000 panel - Serum or Plasma COMP METABOLIC PANEL Lab Routine Chronic ITP (idiopathic thrombocytopenia) ([facility]) Obstructive sleep apnea syndrome Every 6 weeks for 9 Occurrences starting 03/31/2022 until 03/31/2023 [facility] Work Phone: Comment on above: Every 6 weeks for 9 Occurrences starting 03/31/2022 until 03/31/2023 End: 04-19-2024 Comprehensive metabolic 2000 panel - Serum or Plasma COMP METABOLIC PANEL Lab Routine Chronic ITP (idiopathic thrombocytopenia) ([facility]) Every 6 weeks for 9 Occurrences starting 04/20/2023 until 04/19/2024 [facility] Work Phone: Comment on above: Every 6 weeks for 9 Occurrences starting 04/20/2023 until 04/19/2024 ECG COMPLETE ECG COMPLETE ECG 12/15/2023 11:36 AM EDT [facility] End: 04-19-2024 Ferritin [Mass/volume] in Serum or Plasma FERRITIN BLD Lab Routine Chronic ITP (idiopathic thrombocytopenia) (HCC) Every 6 weeks for 9 Occurrences starting 04/20/2023 until 04/19/2024 [facility] Work Phone: Comment on above: Every 6 weeks for 9 Occurrences starting 04/20/2023 until 04/19/2024 End: 04-19-2024 Folate [Mass/volume] in Serum or Plasma FOLATE SERUM Lab Routine Chronic ITP (idiopathic thrombocytopenia) (HCC) Every 6 weeks for 9 Occurrences starting 04/20/2023 until 04/19/2024 [facility] Work Phone: Comment on above: Every 6 weeks for 9 Occurrences starting 04/20/2023 until 04/19/2024 End: 04-19-2024 Iron and Iron binding capacity panel - Serum or Plasma IRON + TIBC Lab Routine Chronic ITP (idiopathic thrombocytopenia) (HCC) Every 6 weeks for 9 Occurrences starting 04/20/2023 until 04/19/2024 [facility] Work Phone: Comment on above: Every 6 weeks for 9 Occurrences starting 04/20/2023 until 04/19/2024 Surgical pathology study [facility] Work Phone: Comment on above: Release Upon Ordering for 1 Occurrences starting 12/18/2023, 1 completed Tmpp mastoidect ntc/rcnsted canal wall ocr Tympanomastoidectomy Cholesteatoma of left ear Virtual [facility] A OR XR Tibia and Fibula - left 2 Views XR tibia fibula 2 views left Imaging Routine Left leg pain 04/09/2024 10:28 AM EDT [facility] Immunizations Immunization Date Immunization Notes Care Provider Yam[facility] 03-25-2023 influenza (HD-IIV4) vaccine, age 65+ yr, high dose, quadrivalent, PF (FLUZONE HIGH-DOSE) Rinku Ramsey MD Work Phone: [facility] 03-25-2023 influenza virus vacc ine, unspecified formulation Jayden Connelly APRN.[employer]ER [employer] Work Phone: [facility] 04-20-2022 influenza, high-dose , quadrivalent vaccine (FLUZONE HIGH DOSE QUADRIVALENT) Jayden Connelly APRN.[employer] Work Phone: [facility] 04-20-2022 influenza virus vacc ine, unspecified formulation Rinku Ramsey MD Work Phone: [facility] 03-23-2021 influenza, high-dose , quadrivalent vaccine (FLUZONE HIGH DOSE QUADRIVALENT) Jayden Connelly MOSS BLEACHER.[employer] CON[employer]ER [employer] Work Phone: [facility] 10-17-2020 COVID-19 vaccine, fu ll dose (MODERNA) Jayden Connelly MOSS BLEACHER.[employer] Work Phone: [facility] 09-19-2020 COVID-19 vaccine, fu ll dose (MODERNA) Jayden Connelly MOSS BLEACHER.[employer] Work Phone: [facility] 03-18-2020 influenza, high-dose , quadrivalent vaccine (FLUZONE HIGH DOSE QUADRIVALENT) Jayden Connelly MOSS BLEACHER.[employer] Work Phone: [facility] 04-01-2019 influenza, high dose seasonal, preservative-free Jayden Connelly MOSS BLEACHER.[employer] Work Phone: [facility] 04-01-2019 pneumococcal polysaccharide vaccine, 23 valent Jayden Connelly MOSS BLEACHER.[employer] Work Phone: [facility] 03-23-2018 influenza, high dose seasonal, preservative-free Jayden Connelly MOSS BLEACHER.[employer] Work Phone: [facility] 03-23-2018 pneumococcal conjuga te vaccine, 13 valent Jayden Connelly MOSS BLEACHER.[employer] Work Phone: [facility] 04-08-2017 influenza, high dose seasonal, preservative-free Jayden Connelly MOSS BLEACHER.[employer] Work Phone: [facility] 09-06-2016 pneumococcal conjuga te vaccine, 13 valent Jayden Connelly MOSS BLEACHER.[employer] Work Phone: [facility] Payers Date Payer Category Payer Private Health Insurance [facility] [id number] 2023-Present [address] [address] [place] [address] [id number] 2022 Self-pay [id number] 2021 Medicare UHC AARP MEDICAR E [facility] AARP MEDICARE HMO [id number] 2021-Present [phone] [address] [address] [place] [address] HMO [id number] 2021 Medicare [id number] 2021 Private Health Insurance [id number] 2015 Medicare MEDICARE MEDICAR E A AND B [id number] 2015-[address] [place] [address] Medicare [id number] 1950 Unknown [id number] 2.16.840.1.892298.3.579.2. 1244 1950 Unknown [id number] 2.16.840.1.410585.3.579.2. 1241 1950 Unknown [id number] 2.16.840.1.892335.3.579.2. 1243 1950 Unknown [id number] 2.16.840.1.258630.3.579.2. 1243 1950 Unknown [id number] 2.16.840.1.191099.3.579.2. 1243 1950 Unknown [id number] 2.16.840.1.933004.3.579.2. 1285 1950 Unknown [id number] 2.16.840.1.144134.3.579.2. 1285 1950 Unknown [id number] 2.16.840.1.845736.3.579.2. 1286 1950 Unknown [id number] 2.16.840.1.878852.3.579.2. 1258 1950 Unknown [id number] 2.16.840.1.489716.3.579.2. 1258 1950 Unknown [id number] 2.16.840.1.884310.3.579.2. 1258 1950 Unknown [id number] 2.16.840.1.398683.3.579.2. 1258 1950 Unknown [id number] 2.16.840.1.774293.3.579.2. 1258 1950 Unknown [id number] 2.16.840.1.190404.3.579.2. 1258 1950 Unknown [id number] 2.16.840.1.788196.3.579.2. 1258 1950 Unknown [id number] 2.16.840.1.325396.3.579.2. 1258 1950 Unknown [id number] 2.16.840.1.299291.3.579.2. 1259 Medicare [id number] Medicare [id number] Medicare [id number] Unknown [facility] [id number] Unknown [id number] Unknown [id number] Social History Date Type Detail Facility Start: 09-16-2021 End: 05-12-2022 Tobacco smoking status NHIS Light tobacco smoker [facility] History of tobacco use Cigarette Smoker [facility] Start: 09-16-2021 End: 02-12-2024 Tobacco use and exposure Smokeless tobacco non-user [facility] Start: 09-16-2021 End: 03-05-2024 Alcohol intake Current non-drinker of alcohol (finding) [facility] Start: 1950 Sex Assigned At Not on file [facility] Start: 10-18-2021 End: 12-18-2023 Exposure to SARS-CoV-2 (event) Not sure [facility] Start: 03-03-2016 End: 02-12-2024 Tobacco smoking status NHIS Smokes tobacco daily [facility] Start: 01-26-2023 End: 04-09-2024 Sex Assigned At [facility] History of tobacco use Passive smoker [facility] Start: 1950 Sex Assigned At Female F [facility] Start: 01-26-2023 End: 04-09-2024 History of Social function [facility] Adult Depression Screening Assessment 0 [facility] Start: 08-16-2023 End: 04-09-2024 Alcohol intake Lifetime non-drinker (finding) [facility] Clinical Notes 05-12-2021 to 04-09-2024 Telephone Encounter - Rinku Ramsey MD - 04/09/2024 3:22 PM EDTTelephone Encounter - Rinku Ramsey MD - 04/09/2024 3:22 PM EDTTelephone Encounter - Betsy Pimentel RN - 04/09/2024 9:10 AM EDT Note Date & Type Note Facility 04-09-2024 Telephone encounter Note No further instructions - you are right on. [facility] 04-09-2024 Miscellaneous Notes No further instructions - you are right on. 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 03/05/24 platelet result 144. Encouraged to ask radiology dept if they have any requirements for platelet number. Also recommend recheck CBC prior to verify no drastic changes, and standard bleeding precautions following, should platelets remain at a stable number. She will call with any further needs or concerns once she discusses with radiology team. Loulou: Any further recommendations? Betsy Pimentel RN documented in this encounter [facility] 04-09-2024 History of Present illness Narrative Images from the original note were not included. NAME: Andrei Fish : 1950 HISTORY OF PRESENT ILLNESS: NEW PT Andrei Fish is an 73 y.o. @ female. NEW PT WITH LT LOWER LEG PAIN ~11/2022- NO KNOWN INJURY XRAY LT TIB/FIB TODAY EPIC 04/09/24 HX LT TIB/FIB FX WITH EXTERNAL FIX; PT THEN GOT AN INFECTION NEEDING A SKIN GRAFT- DONE BY DR DONNELLY 2003 C/O PAIN OVER READ REGION- DENIES N/T- DIFFICULTY WITH STAIRS- SOME WEAKNESS POSTERIOR KNEE- +TYLENOL PAST MEDICAL HISTORY: Past Medical History: Diagnosis Date Disease of thyroid gland (CMS/HCC) 06/28/2022 Hypertension (CMS/HCC) Leg pain, bilateral 06/06/2023 Obesity (BMI 30-39.9) 06/06/2023 PAST SURGICAL HISTORY: Past Surgical History: Procedure Laterality Date APPENDECTOMY BI MAMMO GUIDED LOCALIZATION BREAST LEFT Left 03/28/2017 BI MAMMO GUIDED LOCALIZATION BREAST LEFT 03/28/2017 BREAST BIOPSY Left BREAST LUMPECTOMY Left 07/2015 BREAST SURGERY CHOLECYSTECTOMY COLONOSCOPY 2009 EYE SURGERY FRACTURE SURGERY Left leg HYSTERECTOMY SOCIAL HISTORY: Social History Occupational History Not on file Tobacco Use Smoking status: Every Day Current packs/day: 0.25 Average packs/day: 0.3 packs/day for 50.0 years (12.5 ttl pk-yrs) Types: Cigarettes Passive exposure: Past Smokeless tobacco: Never Vaping Use Vaping status: Never Used Substance and Sexual Activity Alcohol use: Never Drug use: Never Sexual activity: Defer ALLERGIES: Allergies Allergen Reactions Vancomycin Other States had burning sensation t/o entire body. (Infectious disease) States medication was given too fast. Azxhmij-Tkhagq-Ezziz Pertussis Rash HOME MEDICATIONS: Current Outpatient Medications Medication Instructions Fostamatinib Disodium 100 mg, Oral, 2 times daily hydroCHLOROthiazide (HYDRODIURIL) 25 mg, Oral, Daily losartan (COZAAR) 50 mg, Oral, 2 times daily methocarbamol (ROBAXIN) 750 mg, Oral, 3 times daily pilocarpine (Salagen) 5 MG tablet 1 tablet, Oral, 3 times daily spironolactone (ALDACTONE) 25 mg, Oral, Daily RT REVIEW OF SYSTEMS: Review of Systems Vitals: Body mass index is 32.59 kg/m . Tobacco Use: High Risk (04/09/2024) Patient History Smoking Tobacco Use: Every Day Smokeless Tobacco Use: Never Passive Exposure: Past Alcohol Use: Not on file PHYSICAL EXAM: Knee Musculoskeletal Exam Gait Gait is normal. Limp: left Limp comment: mild with initiation of gait Inspection Leg length disparity: no discrepancy Left Erythema: none Effusion: mild Edema: none Ecchymosis: none Deformity: none Alignment: normal Incision: well-healed Incision comment: Multiple scars from left tib/ fib surgery remotely. Palpation Left Left knee palpation is unremarkable. Increased warmth: none Masses: none Crepitus: patellofemoral Tenderness: none Tenderness comment: Pain posterior knee occasional with activtiy.. pt has tenderness to anterior read. compartments soft. Range of Motion Left Left knee range of motion is normal and full. Strength Left Left knee strength is normal. Extension: 5/5. Flexion: 5/5. Strength additional comments: Painless prom of knee Instability Left Instability signs: none - stable Varus stress grade: normal Valgus stress grade: normal Anterior drawer: normal Medial Ayan test: negative Lateral Ayan test: negative Neurovascular Left Sensation comment: chronic decreased sensation to lateral read/ bottom/ top of foot present since prior surgery. Pulses - PT: normal Posterior tibial: 2+ Capillary refill: warm and well-perfused Special Signs Left Left knee special signs are normal. Patellar apprehension: mild General Constitutional: appears stated age Labored breathing: no Psychiatric: normal mood and affect Neurological: alert Skin: intact Lymphadenopathy: none IMAGING: Procedures Orders Placed This Encounter Procedures XR tibia fibula 2 views left Order Specific Question: Reason for exam: Answer: PAIN NM bone 3 phase Standing Status: Future Standing Expiration Date: 04/09/2025 Order Specific Question: Reason for exam: Answer: LT TIB FIB PAIN CBC and differential Order Specific Question: Print requisition? Answer: Yes Sedimentation rate, automated Standing Status: Future Number of Occurrences: 1 Standing Expiration Date: 04/09/2025 Order Specific Question: Print requisition? Answer: Yes C-reactive protein Standing Status: Future Number of Occurrences: 1 Standing Expiration Date: 04/09/2025 Order Specific Question: Print requisition? Answer: Yes ASSESSMENT: ICD-10-CM 1. Left leg pain M79.605 XR tibia fibula 2 views left CBC and differential Sedimentation rate, automated C-reactive protein Sedimentation rate, automated C-reactive protein Ambulatory referral to Orthopaedic Surgery NM bone 3 phase PLAN: New onset pain since may anterior read/ pain with weight bearing to read.. F/U Dr. Avalos s/p Bone scan/ labs r/o stress fx/ infectious process.. consider EMG eval of Lumbar spine if neg. ( Prior surgery Dr. Donnelly) - Normal TIMA on 03/01/24 for vascular flow [place] Pt notes occ posterior knee pain. Not present today.. c/o pain to lower leg where prior fracture occurred.. pt thankful Questions answered in laymen terms at the bedside. The diagnosis, home exercise plan and any ongoing restrictions/ recommendations reviewed. If unable to be reached in office, I recommend evaluation at nearest Emergency Room if any symptoms worsened or new symptoms develop for requiring urgent evaluation. documented in this encounter [facility] 04-09-2024 Telephone encounter Note Pt FAIRGROUND OPERATOR Stephanie called to inquire if there are any special instructions/ recommendations for schedule thyroid fine needle bx at [facility]. 03/05/24 platelet result 144. Encouraged to ask radiology dept if they have any requirements for platelet number. Also recommend recheck CBC prior to verify no drastic changes, and standard bleeding precautions following, should platelets remain at a stable number. She will call with any further needs or concerns once she discusses with radiology team. Loulou: Any further recommendations? Betsy Pimentel RN [facility] 04-05-2024 Telephone encounter Note Printed and signed by Loulou. Faxed to [phone], as requested. Betsy Pimentel RN [facility] 04-05-2024 Miscellaneous Notes Printed and signed by Loulou. Faxed to [phone], as requested. Betsy Pimentel RN Please send this to Dr Ramsey 04/03/24. This is set to print. Emiliano Harden PharmD, BCOP documented in this encounter [facility] 04-02-2024 Telephone encounter Note Please send this to Dr Ramsey 04/03/24. This is set to print. Emiliano Harden PharmD, BCOP [facility] Work Phone: 03-05-2024 Nurse Note Patient Identification confirmed: yes. Injection given and documented on MAR per provider order. Marely Alvarez MA [facility] 03-05-2024 Nurse Note Patient Identification confirmed: yes. Injection given and documented on MAR per provider order. Marely Alvarez MA documented in this encounter [facility] 03-05-2024 Instructions Emani Brizuela - 03/05/2024 11:20 AM EDT B12 shot today and q 6 weeks Continue Tavalisse 100 mg BID RTC in 6 weeks Labs same day documented in this encounter [facility] 03-05-2024 History of Present illness Narrative Images from the original note were not included. NAME: Andrei Fish [facility] NO.: [id number] DATE OF SERVICE: March 05, 2024 (Roxy) Some elements in this clinic note that are critical to medical decision making have been carefully reviewed and included from a prior clinic note dated: February 02, 2024 (Roxy) Additional Clinicians involved in Andrei Fish's care: [...] 2017 - Rituxan X 4 Updated Visit, March 05, 2024: Anrdei returns today for a follow up. Platelets are stable, she is more anemic today. Will give B12 injection today. Her eardrum repair was successful. She complains of continued weakness in her legs. She is going to follow up with her FAIRGROUND OPERATOR regarding pulmonary nodule that has been stable [...] having a mammogram and dexa scan at [facility] per her PCP. 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 Overall, she is doing well [...] why she was going to see a fire crew specialist for her blood pressure. Patient also has [...] which included preparing to see the patient, [id number] patient care, completing clinical documentation, obtaining and/or reviewing separately obtained history, performing a medically appropriate examination, counseling and educating the patient/family/caregiver, ordering medications, tests, or procedures, communicating with other HCPs (not separately reported), independently interpreting results (not separately reported), communicating results to the patient/family/caregiver, and care coordination (not separately reported). Rinku Ramsey MD, CPE Hematology and Oncology Services Provided at: [facility], [place], [place] Scribe Attestation: This note was scribed [...] Dr. Atif Graf documented in this encounter [facility] 03-05-2024 Note HNO ID: [id number] Author: RINKU RAMSEY MD Service: ? Author Type: Physician Type: Progress Notes Filed: 03/07/2024 12:47 Note Text: NAME: Abe Andrei CLINIC NO.: [id number] DATE OF SERVICE: March 05, 2024 (Roxy) Some elements in this clinic note that are critical to medical decision making have been carefully reviewed and included from a prior clinic note dated: February 02, 2024 (Roxy) Additional Clinicians involved in Andrei Fish's care: [...] is going to follow up with her FAIRGROUND OPERATOR regarding pulmonary nodule that has been stable [...] hip, and back pain, and still feels (more content not included)... [facility] 02-02-2024 Instructions Emani Carr - 02/02/2024 1:48 PM EDT Continue Tavalisse 100 mg BID RTC in 6 weeks for labs and follow up documented in this encounter [facility] 02-02-2024 History of Present illness Narrative Images from the original note were not included. NAME: Andrei Fish CLINIC NO.: [id number] DATE OF SERVICE: February 02, 2024 (Roxy) Some elements in this clinic note that are critical to medical decision making have been carefully reviewed and included from a prior clinic note dated: November 24, 2023 (Roxy) Additional Clinicians involved in Andrei Fish's care: [...] having a mammogram and dexa scan at [facility] per her PCP. 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 Overall, she is doing well [...] why she was going to see a fire crew specialist for her blood pressure. Patient also has [...] which included preparing to see the patient, [id number] patient care, completing clinical documentation, obtaining and/or reviewing separately obtained history, performing a medically appropriate examination, counseling and educating the patient/family/caregiver, ordering medications, tests, or procedures, communicating with other HCPs (not separately reported), independently interpreting results (not separately reported), communicating results to the patient/family/caregiver, and care coordination (not separately reported). Rinku Ramsey MD, CPE Hematology and Oncology Services Provided at: [place], [place] Scribe Attestation: This note was scribed [...] Dr. Atif Graf documented in this encounter [facility] 02-02-2024 Note HNO ID: [id number] Author: RINKU RAMSEY MD Service: ? Author Type: Physician Type: Progress Notes Filed: 02/03/2024 12:34 Note Text: NAME: Andrei Fish CLINIC NO.: [id number] DATE OF SERVICE: February 02, 2024 (Roxy) Some elements in this clinic note that are critical to medical decision making have been carefully reviewed and included from a prior clinic note dated: November 24, 2023 (Roxy) Additional Clinicians involved in Andrei Fish's care: [...] 2018 - Rituxan X 4 Updated Visit, February [...] for follow up. She reports that on Chri (more content not included)... [facility] 01-25-2024 Telephone encounter Note Loulou: please sign pended refill, if agreeable Betsy Pimentel RN [facility] 01-25-2024 Miscellaneous Notes Loulou: please sign pended refill, if agreeable Betsy Pimentel RN documented in this encounter [facility] 12-18-2023 Miscellaneous Notes 1247: Phase 1 care begins 1313: Pt family updated via message 1405: 975 tylenol given per emr order 1420: Phase 2 care begins documented in this encounter [facility] Work Phone: 12-18-2023 Note Formatting of this n ote might be different from the original. 1247: Phase 1 care begins 1313: Pt family updated via message 1405: 645 tylenol given per emr order 1420: Phase 2 care begins [facility] 12-18-2023 Hospital Discharge instructions Fly Lindo MD [...] for your care. documented in this encounter [facility] Work Phone: 12-18-2023 History and physical note [...] OR for tympanomastoidectomy with cartilage graft, possible AXEL Lindo MD [facility] Work Phone: 12-18-2023 History and physical note [...] for tympanomastoidectomy with cartilage graft, possible OCR Fyl Lindo MD documented in this encounter [facility] Work Phone: 12-15-2023 Nurse Note Patient identified by 2 identifiers. EKG performed as ordered. Marely Alvarez MA [facility] 12-15-2023 Nurse Note Patient identified by 2 identifiers. EKG performed as ordered. Marely Alvarez MA documented in this encounter [facility] 11-28-2023 Telephone encounter Note Called thanks [facility] 11-28-2023 Miscellaneous Notes Called thanks Dr Graf ( ENT) is requesting to speak w/ you regarding Odes. Please call her @ [phone]. Thanks, Linda Bourgeois RN documented in this encounter [facility] 11-28-[address] Graf ( ENT) is requesting to speak w/ you regarding Odes. Please call her @ [phone]. Thanks, Linda Bourgeois RN [facility] Work Phone: 11-24-2023 Instructions Rinku Ramsey MD - 11/24/2023 11:28 AM EDT Continue Tavalisse 100 mg BID Return in 6 weeks for labs and follow up documented in this encounter [facility] 11-24-2023 History of Present illness Narrative Images from the original note were not included. NAME: Andrei Fish CLINIC NO.: [id number] DATE OF SERVICE: November 24, 2023 (Roxy) Some elements in this clinic note that are critical to medical decision making have been carefully reviewed and included from a prior clinic note dated: October 13 2023 (Mary). Additional Clinicians involved in Andrei Fish's care: [...] having a mammogram and dexa scan at [facility] per her PCP. 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 Overall, she is doing well [...] why she was going to see a fire crew specialist for her blood pressure. Patient also has [...] which included preparing to see the patient, [id number] patient care, completing clinical documentation, obtaining and/or reviewing separately obtained history, performing a medically appropriate examination, counseling and educating the patient/family/caregiver, ordering medications, tests, or procedures, communicating with other HCPs (not separately reported), independently interpreting results (not separately reported), communicating results to the patient/family/caregiver, and care coordination (not separately reported). Rinku Ramsey MD, [facility] Hematology and Oncology Services Provided at: [place], [place] CC: Dr. Chadd Graf documented in this encounter [facility] 11-24-2023 Note HNO ID: [id number] Author: RINKU RAMSEY MD Service: ? Author Type: Physician Type: Progress Notes Filed: 11/25/2023 12:47 Note Text: NAME: Andrei Fish NO.: [id number] DATE OF SERVICE: November 24, 2023 (Roxy) Some elements in this clinic note that are critical to medical decision making have been carefully reviewed and included from a prior clinic note dated: October 13 2023 (Mary). Additional Clinicians involved in Andrei Fish's care: [...] for follow up. She reports that on Raul Yudy she had an episode of hypotension while she was cooking and felt like she was going to lose consciousness. Her BP returned to normal after sitting down for a half hour or so, it is normal today. Her , daughter, and brother all came down with Covid around that time as well. Oth (more content not included)... [facility] 11-14-2023 History of Present illness Narrative History Of Present Illness: Andrei Fish is a 72 y.o. female whom presents to me as a new patient for left-sided TM perforation, referred here today by Dr. Mar Mayo. She is status post left-sided tympanoplasty with OCR in December of [address] Augie Tyler at [facility]. In 2017, was told by Dr. Tyler [...] of [address] Augie Tyler at [facility]. Patient's dizziness also is likely d/t tympanic perforation. Patient will require L sided tympanomastoidectomy canal wall up with ossiculoplasty, cartilage graft. Discussed risks and benefits with patient. Tamela Garsia, MS4 I have reviewed the documentation as scribed by Tamela Garsia and agree with the notes. Susanna Graf MD documented in this encounter [facility] Work Phone: 11-14-2023 Instructions Nereida Stewart - 11/14/2023 1:45 PM EDT Welcome to Dr. Graf's clinic. We are here to assist you through your ENT care at [facility]. Dr. Graf is an Ear surgeon. This means that she specializes in taking care of patients with complex ear problems. Dr. Graf's office number is [phone]. While you may see her at a satellite office, she has a team committed to help meet your healthcare needs at [facility]. This number is the most direct way to communicate with the office. Jasmyne is Dr. Graf's patient care secretary and she answers the office phone [...] may include dieticians, social workers, speech therapists, shipping helper, neurologist, and physical therapist. Dr. Graf will provide these referrals as needed. Please let her know if you would like to request a specific referral. For your convenience, Dr. Graf sees patients at several [facility] locations including [facility] and [facility] at the main campus of [facility]. While we try to make your appointments [...] have to reschedule. documented in this encounter [facility] Work Phone: 10-13-2023 Note HNO ID: [id number] Author: ANA PHOENIX PA-C Service: ? Author Type: Physician Billet Inspector Type: Progress Notes Filed: 10/13/2023 13:53 Note Text: NAME: Andrei Fish [facility] NO.: [id number] DATE OF SERVICE: October 13 2023 (Mary) (Elements copied from Dr. Ramsey's note dated August 28, 2023, have been reviewed and updated where appropriate, and all reflect current assessment and medical decision making during today's encounter, October 13, 2023) Additional Clinicians involved in Andrei Fish's care: Dr. Shay, Dr. Deluna DIAGNOSIS: Chronic [...] 05/17/2023--PCP managing. PLAN: Continue Tavalisse 100 mg BID Return in 6 weeks for labs and follow up Refill Pilocarpine for patient HPI: Case History: 03/29/2023 - US Renal [...] 2017 - Rituxan X 4 Updated Visit, October 13, 2023: Andrei returns [...] for B12 or folic acid replacement at (more content not included)... [facility] 09-04-2023 Miscellaneous Notes The following approved medication requests have been transmitted electronically. Requested Prescriptions Signed Prescriptions Disp Refills losartan (COZAAR) 25 mg tablet 180 tablet 3 Sig: take 2 tablets by mouth every day at bedtime Authorizing Provider: JAYDEN CONNELLY APRN.BATTERY CONTAINER TESTER ALUMINUM documented in this encounter [facility] 08-28-2023 Instructions Rinku Ramsey MD - 08/28/2023 2:54 PM EST Continue Tavalisse 100 mg twice daily. Follow up in 6 weeks with labs. documented in this encounter [facility] 08-28-2023 History of Present illness Narrative Images from the original note were not included. NAME: Andrei Fish NO.: [id number] DATE OF SERVICE: August 28, 2023 (Roxy) Some elements in this clinic note that are critical to medical decision making have been carefully reviewed and included from a prior clinic note dated: July 17, 2023 (Roxy) Additional Clinicians involved in Andrei Fish's care: Dr. Shay, Dr. Deluna DIAGNOSIS: Chronic [...] having a mammogram and dexa scan at [facility] per her PCP. 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 Overall, she is doing well [...] why she was going to see a fire crew specialist for her blood pressure. Patient also has [...] which included preparing to see the patient, [id number] patient care, completing clinical documentation, performing a medically appropriate examination, counseling and educating the patient/family/caregiver, ordering medications, tests, or procedures, independently interpreting results (not separately reported), communicating results to the patient/family/caregiver, and care coordination (not separately reported). Rinku Ramsey MD, CPE Hematology and Oncology Services Provided at: [facility], [place], [place] Scribe Attestation: This note was scribed [...] Dr. Chadd Deluna documented in this encounter [facility] 08-28-2023 Note HNO ID: [id number] Author: RINKU RAMSEY MD Service: ? Author Type: Physician Type: Progress Notes Filed: 08/28/2023 19:35 Note Text: NAME: Abe Andrei [facility] NO.: [id number] DATE OF SERVICE: August 28, 2023 (Roxy) Some elements in this clinic note that are critical to medical decision making have been carefully reviewed and included from a prior clinic note dated: July 17, 2023 (Roxy) Additional Clinicians involved in Andrei Fish's care: Dr. Shay, Dr. Deluna DIAGNOSIS: Chronic [...] having a mammogram and dexa scan at [facility] per her PCP. She states that she was told she has osteoporosis and is following up with PCP for treatment of this. (more content not included)... [facility] 08-23-2023 History of Present illness Narrative Subjective Patient ID: Andrei Fish is a 72 y.o. female who presents for Ear Problem (Left TM perf). Pt had an apparent left tympanoplasty and OCR in December 2015. Pt states she was told there would need to be revision surgery. Saw another ENT in [place] who was to do the revision, but [...] Diagnosis Date Noted Chronic ITP (idiopathic thrombocytopenia) ([facility]) 05/26/2016 Disease of thyroid gland ([facility]) 06/28/2022 Essential hypertension ([facility]) 05/13/2021 Family history of breast cancer 04/13/2017 Lupus ([facility]) 03/03/2016 Nocturnal leg cramps 10/05/2017 Obstructive sleep apnea syndrome 05/13/2021 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[facility]) 06/28/2022 Tobacco dependence 06/28/2022 Dry mouth 01/05/2017 Compression syndrome, nerve 06/28/2022 Abnormal weight loss 03/03/2016 Age-related osteoporosis without current pathological fracture ([facility]) 06/06/2023 Ruptured ear drum, left 06/06/2023 Leg pain, bilateral 06/06/2023 Left wrist pain 06/06/2023 Obesity (BMI 30-39.9) 06/06/2023 Claudication of both lower extremities ([facility]) 06/08/2023 PAD (peripheral artery disease) ([facility]) 06/08/2023 Resolved Ambulatory Problems Diagnosis Date Noted No Resolved Ambulatory Problems Past Medical History: Diagnosis Date Hypertension ([facility]) Past Surgical History: Procedure Laterality Date APPENDECTOMY BI MAMMO GUIDED LOCALIZATION BREAST LEFT Left 03/28/2017 BI MAMMO GUIDED LOCALIZATION BREAST LEFT 03/28/2017 BREAST BIOPSY Left BREAST LUMPECTOMY Left 07/2015 BREAST SURGERY CHOLECYSTECTOMY COLONOSCOPY 2008 EYE SURGERY FRACTURE SURGERY Left leg HYSTERECTOMY Allergies Allergen Reactions Vancomycin Other States had burning sensation t/o entire body. (Infectious disease) States medication was given too fast. Atgiaxq-Uqlemq-Sndbx Pertussis Rash Current Outpatient Medications on File [...] for revision surgery documented in this encounter [facility] 08-16-2023 History of Present illness Narrative History: Pt was referred to ENT because of left TM perforation and left hearing loss. Onset of perforation was a few years ago Pt saw ENT in [place] that was going to repair the perforation [...] Ear: No seal documented in this encounter [facility] 07-17-2023 Note HNO ID: [id number] Author: RINKU RAMSEY MD Service: ? Author Type: Physician Type: Progress Notes Filed: 07/17/2023 20:30 Note Text: NAME: FishAndrei CLINIC NO.: [id number] DATE OF SERVICE: July 17, 2023 (Roxy) Some elements in this clinic note that are critical to medical decision making have been carefully reviewed and included from a prior clinic note dated: June 05, 2023 (Mary). Additional Clinicians involved in Paulalicia Ruben Abe's [...] having a mammogram and dexa scan at [facility] per her PCP. She states that [...] issues. Labs remain (more content not included)... [facility] 06-28-2023 Evaluation note Encounter Date Diagnosis Assessment [...] Her CT scan results reviewed from the [place] [facility] which also showed bilateral renal cysts. [...] oral vitamin D 50,000 unit once weekly. [employer] Other 11-27-2023 NoteHNO ID: [id number] Author: Ana Phoenix PA-C Service: ? Author Type: Physician Billet Inspector Type: Progress Notes Filed: 06/05/2023 11:06 AM Note Text: NAME: Andrei Fish CLINIC NO.: [id number] DATE OF SERVICE: June 05, 2023 (Mary) (Elements copied from Dr. Ramsey's note dated April 20, 2023, have been reviewed and updated where appropriate, and all reflect current assessment and medical decision making during today's encounter, June 05, 2023) Additional Clinicians involved in Andrei Fish's care: [...] having a mammogram and dexa scan at [facility] per her PCP. 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 Overall, she is doing well [...] more easily with blo (more content not included)...[facility] History of Present illness Narrative* Ana Phoenix PA-C - 06/05/2023 8:47 AM EST Images from the original note were not included. NAME: Abe Andrei [facility] NO.: [id number] DATE OF SERVICE: June 05, 2023 (Mary) (Elements copied from Dr. Ramsey's note dated April 20, 2023, have been reviewed and updated where appropriate, and all reflect current assessment and medical decision making during today's encounter, June 05, 2023) Additional Clinicians involved in Andrei Fish's care: [...] having a mammogram and dexa scan at [facility] per her PCP. 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 Overall, she is doing well [...] why she was going to see a fire crew specialist for her blood pressure. Patient also has [...] which included preparing to see the patient, qqqy-hv-pwyq patient care, completing clinical documentation, obtaining and/or reviewing separately obtained history, performing a medically appropriate examination, counseling and educating the pat ient/family/caregiver, ordering medications, tests, or procedures, independently interpreting results (not separately reported), communicating results to the patient/family/caregiver, and care coordination (not separately reported). Ana Phoenix PA-C CC: Dr. Chadd Deluna documented in this encounterGreen [facility]10-23-2023 Miscellaneous Notes* Telephone Encounter - Krista Harden [facility] - 05/01/2023 2:44 PM EDT Please Fax RX to [facility] for Herminio Nunn [facility] @ [phone] Emiliano Harden, PharmD, BCOP documented in this encounterGreen Cross Hospital10-12-2023 Instructions* Patient Instructions* Rinku Ramsey MD - 04/20/2023 10:47 AM EDT Continue Tavalisse 100 mg twice daily. Follow up in 6 weeks with labs. documented in this encounterGreen Cross Hospital10-12-2023 NoteHNO ID: [id number] Author: Rinku Ramsey MD Service: ? 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 Overall, she is doing well [...] twice daily and is (more content not included)...[facility] History of Present illness Narrative* Rinku Ramsey MD - 04/20/2023 10:30 AM EDT Images from the original note were not included. 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 Overall, she is doing well [...] consultation with nephrology, Dr. Gilson Sarah. Dr. Saarh increased her losartan to 50 mg daily. [...] why she was going to see a fire crew specialist for her blood pressure. Patient also has [...] which included preparing to see the patient, rmav-lf-gaai patient care, completing clinical documentation, obtaining and/or reviewing separately obtained history, performing a medically appropriate examination, counseling and educating the pat ient/family/caregiver, ordering medications, tests, or procedures, independently interpreting results (not separately reported), communicating results to the patient/family/caregiver, and care coordination (not separately reported). Rinku Ramsey MD, CPE Hematology and Oncology Services Provided at: [place], [place] CC: Dr. Chadd Deluna documented in this encounterGreen Cross Hospital10-11-2023 Miscellaneous Notes* Telephone Encounter - Marely Alvarez - 04/19/2023 4:02 PM EDT Patient has an appt on 04/20. Would you like labs? documented in this encounterGreen Cross Hospital09-05-2023 Evaluation note* Encounter Date Diagnosis Assessment Notes Treatment Notes Treatment Clinical Notes Mar, Complex renal cyst (ICD-10 - N28.1) [employer] Other [id number] Instructions* Patient Instructions* Rinku Ramsey MD - 03/09/2023 2:54 PM EDT Continue Tavalisse 100 mg twice daily. Follow up in 6 weeks with labs. documented in this encounterGreen Cross Hospital08-31-2023 History of Present illness Narrative* Rinku Ramsey MD - 03/09/2023 2:50 PM EDT Images from the original note were not included. NAME: Andrei Fish CLINIC NO.: [id number] DATE OF SERVICE: March 09, 2023 (Roxy) Some elements in this clinic note that are critical to medical decision making have been carefully reviewed and included from a prior clinic note dated: January 26, 2023 (Roxy) Additional Clinicians involved in Andrei Miranda Fish's care: Dr. Shay, Dr. 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 Overall, she is doing well [...] why she was going to see a fire crew specialist for her blood pressure. Patient also has [...] which included preparing to see the patient, lhwl-yr-ydya patient care, completing clinical documentation, performing a medically appropriate examination, counseling and educating the patient/family/caregiver, ordering medications, tests, or p rocedures, and independently interpreting results (not separately reported). Rinku Ramsey MD, CPE Hematology and Oncology Services Provided at: [place], [place] CC: Dr. Chadd Deluna documented in this encounterGreen Cross Hospital07-20-2023 Instructions* Patient Instructions* Rinku Ramsey MD - 01/26/2023 3:14 PM EDT Continue Tavalisse 100 mg twice daily. Follow up in 6 weeks with labs. 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 Overall, she is doing well [...] why she was going to see a fire crew specialist for her blood pressure. Patient also has [...] which included preparing to see the patient, yfvb-gj-dlot patient care, completing clinical documentation, performing a medically appropriate examination, counseling and educating the patient/family/caregiver, ordering medications, tests, or p rocedures, and independently interpreting results (not separately reported). Rinku Ramsey MD, CPE Hematology and Oncology Services Provided at: [place], [place] CC: Dr. Chadd Deluna documented in this encounterGreen Cross Hospital06-08-2023 Instructions* Patient Instructions* Rinku Ramsey MD - 12/15/2022 2:39 PM EDT Continue Tavalisse 100 mg twice daily. Follow up in 6 weeks with labs. documented in this encounterGreen Cross Hospital06-08-2023 History of Present illness Narrative* Rinku Ramsey MD - 12/15/2022 2:35 PM EDT Images from the original note were not included. 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 Overall, she is doing well [...] why she was going to see a fire crew specialist for her blood pressure. Patient also has [...] if it persists. She is requested Tessalon Perlalicia again for her chronic intermittent cough. She [...] which included preparing to see the patient, rggi-qh-jzss patient care, completing clinical documentation, performing a medically appropriate examination, counseling and educating the patient/family/caregiver, ordering medications, tests, or p rocedures, and independently interpreting results (not separately reported). Rinku Ramsey MD, CPE Hematology and Oncology Services Provided at: [place], [place] CC: Dr. Chadd Deluna documented in this encounterGreen Cross Hospital04-20-2023 Instructions* Patient Instructions* Rinku Ramsey MD - 10/27/2022 3:37 PM EDT Continue Tavalisse 100 mg twice daily. (Actually takes 2 pills at the same time) Follow up in 6 weeks with labs. documented in this encounterGreen Cross Hospital04-20-2023 History of Present illness Narrative* Rinku Ramsey MD - 10/27/2022 3:34 PM EDT Images from the original note were not included. 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 Overall, she is doing well [...] why she was going to see a fire crew specialist for her blood pressure. Patient also has [...] which included preparing to see the patient, kayf-zl-nmio patient care, completing clinical documentation, performing a medically appropriate examination, counseling and educating the patient/family/caregiver, ordering medications, tests, or p rocedures, and independently interpreting results (not separately reported). Rinku Ramsey MD, CPE Hematology and Oncology Services Provided at: [place], [place] CC: Dr. Chadd Deluna documented in this encounterGreen Cross Hospital03-17-2023 Miscellaneous Notes* Telephone Encounter - Marely Alvarez - 09/23/2022 9:24 AM EDT Patient would like script for 90 days please. Marely Alvarez documented in this encounterGreen Cross Hospital03-10-2023 Miscellaneous Notes* Telephone Encounter - Rinku Ramsey MD - 09/16/2022 3:30 PM EST This really should go through her PCP documented [facility] this [facility]03-09-2023 Instructions* Patient Instructions* Rinku Ramsey MD - 09/15/2022 3:53 PM EST Continue Tavalisse 100 mg twice daily. (Actually takes 2 pills at the same time) Losartan was increased by nephrology. Taking Losartan 50 mg daily. Continue HCTZ. Follow up in 6 weeks with labs. documented in this encounterGreen Cross Hospital03-09-2023 History of Present illness Narrative* Rinku Ramsey MD - 09/15/2022 3:34 PM EST Images from the original note were not included. NAME: AbeAndrei CLINIC NO.: [id number] DATE OF SERVICE: September 15, 2022 (Roxy) Some elements in this clinic note that are critical to medical decision making have been carefully reviewed and included from a prior clinic note dated: August 04, 2021 (Godwin) Additional Clinicians involved in Paulalicia Ruben Fish's care: Dr. Shay, Dr. 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 Overall, she is doing well [...] why she was going to see a fire crew specialist for her blood pressure. Patient also has [...] which included preparing to see the patient, zjvl-it-xtfc patient care, completing clinical documentation, performing a medically appropriate examination, counseling and educating the patient/family/caregiver, ordering medications, tests, or p rocedures, and independently interpreting results (not separately reported). Rinku Ramsey MD, CPE Hematology and Oncology Services Provided at: [place], [place] CC: Dr. Chadd Deluna documented in this encounterGreen Cross Hospital03-01-2023 Evaluation note* Encounter Date Diagnosis Assessment [...] (ICD-10 - D64.9) She follows with Hematology [facility] [employer] Other [id number] Miscellaneous Notes* Telephone Encounter - Jayden Connelly [...] Refusal: A Refill not appropriate Jayden Connelly APRN.BATTERY CONTAINER TESTER [employer] documented in this encounterGreen Cross Hospital01-26-2023 Miscellaneous Notes* Telephone Encounter - Karen Muñoz - 08/04/2022 2:40 PM EST Patient wanted to hold off on being referred to Dermatology at this time. She is going to check with her insurance company for in network providers and let our office know on where she would like to be referred to. Karen Muñoz documented in this encounterGreen Cross Hospital01-26-2023 History of Present illness Narrative* Jayden Connelly APRN.CNP - 08/04/2022 2:04 PM EST Images from the original note were not included. 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 Overall, she is doing well [...] why she was going to see a fire crew specialist for her blood pressure. Patient also has [...] APRN.CNP Hematology and Oncology Services Provided at: [place], [place] CC: Dr. Chadd Deluna I spent a total of 30 minutes on the date of the service which included preparing to see the patient, dcft-go-nnoz patient care, completing clinical documentation, obtaining and/or reviewing separately obtained history, performing a medically appropriate examination, counseling and educating the pat ient/family/caregiver, ordering medications, tests, or procedures, independently interpreting results (not separately reported), and communicating results to the patient/family/caregiver. documented in this encounterGreen Cross Hospital01-16-2023 Miscellaneous Notes* Telephone Encounter - Jayden Connelly APRN.CNP - 07/25/2022 10:33 AM EST The following approved medication requests have been transmitted electronically. Requested Prescriptions Signed Prescriptions Disp Refills benzonatate (TESSALON PERLE) 100 mg capsule 100 capsule 0 Sig: TAKE 1 CAPSULE BY MOUTH EVERY 6 HOURS NEEDED FOR COUGH. Authorizing Provider: JAYDEN CONNELLY APRN.CNP documented in this encounterGreen Cross Hospital01-04-2023 Miscellaneous Notes* Telephone Encounter - Jayden Connelly APRN.CNP - 07/13/2022 4:01 PM EST The following approved medication requests have been transmitted electronically. Requested Prescriptions Signed Prescriptions Disp Refills losartan (COZAAR) 25 mg tablet 60 tablet 1 Sig: TAKE 2 TABLETS BY MOUTH EVERY DAY Authorizing Provider: JAYDEN CONNELLY APRN.CNP documented in this encounterGreen Cross Hospital12-15-2022 Instructions* Patient Instructions* Rinku Ramsey MD - 06/23/2022 2:44 PM EST Continue Tavalisse 100 mg twice daily. Losartan was increased by nephrology. Taking Losartan 50 mg daily. Continue HCTZ. Right read lesion - trial of ice. Follow up in 6 weeks with labs. See Jayden please. - consider biopsy of right read. documented in this encounterGreen Cross Hospital12-15-2022 History of Present illness Narrative* Rinku Ramsey MD - 06/23/2022 2:30 PM EST Images from the original note were not included. NAME: Andrei Fish [facility] NO.: [id number] DATE OF SERVICE: June 23, 2022 (Roxy) [...] why she was going to see a fire crew specialist for her blood pressure. Patient also has [...] which included preparing to see the patient, zxrr-xa-htcf patient care, completing clinical documentation, performing a medically appropriate examination, counseling and educating the patient/family/caregiver, ordering medications, tests, or p rocedures, and independently interpreting results (not separately reported). Rinku Ramsey MD, CPE Hematology and Oncology Services Provided at: [place], [place] CC: Dr. Chadd Deluna documented in this encounterGreen Cross Hospital11-11-2022 Miscellaneous Notes* Telephone Encounter - Jayden Connelly APRN.CNP - 05/20/2022 3:34 PM EST The following approved medication requests have been transmitted electronically. Requested Prescriptions Signed Prescriptions Disp Refills losartan (COZAAR) 25 mg tablet 60 tablet 1 Sig: TAKE 2 TABLETS BY MOUTH EVERY DAY Authorizing Provider: JAYDEN CONNELLY APRN.CNP documented in this encounterGreen Cross Hospital11-03-2022 History of Present illness Narrative* Jayden Connelly APRN.BATTERY CONTAINER TE[employer] - 05/12/2022 2:15 PM EDT NAME: Andrei Fish [facility] NO.: [id number] DATE OF SERVICE: May 12, 2022 (Godwin) [...] 2018 Rituxan X 4 HPI: Updated Visit, May [...] why she was going to see a fire crew specialist for her blood pressure. Patient also has [...] APRN.CNP Hematology and Oncology Services Provided at: [place], [place] CC: Dr. Chadd Deluna I spent a total of 30 minutes on the date of the service which included preparing to see the patient, odpv-un-iqmq patient care, completing clinical documentation, obtaining and/or reviewing separately obtained history, performing a medically appropriate examination, counseling and educating the pat ient/family/caregiver, ordering medications, tests, or procedures, independently interpreting results (not separately reported), and communicating results to the patient/family/caregiver. documented in this encounterGreen Cross Hospital09-22-2022 Instructions* Patient Instructions* Rinku Ramsey MD - 03/31/2022 2:50 PM EDT 1. Continue Tavalisse. 2. Losartan was increased by nephrology. Taking Losartan 50 mg daily. 3. Contnue HCTZ. 4. Follow up in 6 weeks with labs. documented in this encounterGreen Cross Hospital09-22-2022 History of Present illness Narrative* Rinku Ramsey MD - 03/31/2022 2:43 PM EDT Images from the original note were not included. NAME: Andrei Fish CLINIC NO.: [id number] DATE OF SERVICE: March 31, 2022 Some elements in this clinic note that are critical to medical decision making have been carefully reviewed and included from a prior clinic note dated: February 11, 2022 (Godiwn) Additional Clinicians involved in Andrei Fish's care: [...] why she was going to see a fire crew specialist for her blood pressure. Patient also has [...] which included preparing to see the patient, emiz-hs-ksnq patient care, completing clinical documentation, performing a medically appropriate examination, ordering medications, tests, or procedures, and independently interpreting results (not separately reported). Rinku Ramsey MD, CPE Hematology and Oncology Services Provided at: [place], [place] CC: Chadd Srivastava Jessemacifeanyi documented in this encounterGreen Cross Hospital08-29-2022 Miscellaneous Notes* Telephone Encounter - Jayden Connelly APRN.CNP - 03/07/2022 12:22 PM EDT The following approved medication requests have been transmitted electronically. Requested Prescriptions Signed Prescriptions Disp Refills pilocarpine (SALAGEN) 5 mg tablet 90 tablet 0 Sig: TAKE 1 TABLET BY MOUTH THREE TIMES A DAY Authorizing Provider: JAYDEN CONNELLY APRN.CNP documented in this encounterGreen Cross Hospital08-29-2022 Miscellaneous Notes* Telephone Encounter - Jayden Connelly APRN.CNP - 03/07/2022 11:21 AM EDT The following approved medication requests have been transmitted electronically. Requested Prescriptions Signed Prescriptions Disp Refills losartan (COZAAR) 25 mg tablet 60 tablet 1 Sig: TAKE 2 TABLETS BY MOUTH EVERY DAY Authorizing Provider: JAYDEN CONNELLY APRN.CNP documented in this encounterGreen [facility] Hospital08-[facility]22 History of Present illness Narrative* Jayden Connelly APRN.CNP - 02/11/2022 1:21 PM EDT Images from the original note were not included. NAME: Andrei Fish CLINIC NO.: [id number] DATE OF SERVICE: February 11, 2022 Some [...] 4 HPI: Updated Visit, February 11, 2022: Anderi Fish returns for scheduled follow-up. She remains [...] why she was going to see a fire crew specialist for her blood pressure. Patient also has [...] No family history on file. Jayden Connelly APRN.[employer]ER [employer] Services Provided at: [place], [place] CC: Chadd Deluna documented in this encounterGreen Cross Hospital07-05-2022 Miscellaneous Notes* Telephone Encounter - Jayden Connelly APRN.CNP - 01/11/2022 4:13 PM EDT The following approved medication requests have been transmitted electronically. Signed Prescriptions Disp Refills losartan (COZAAR) 25 mg tablet 60 tablet 1 Sig: TAKE 2 TABLETS BY MOUTH EVERY DAY JOVON: No Authorizing Provider: JAYDEN CONNELLY APRN.CNP documented in this encounterGreen Cross Hospital06-10-2022 History of Present illness Narrative* Jayden Connelly APRN.CNP - 12/17/2021 3:13 PM EDT Images from the original note were not included. NAME: Abe Andrei [facility] NO.: [id number] DATE OF SERVICE: December 17, 2021 Some [...] why she was going to see a fire crew specialist for her blood pressure. Patient also has [...] No family history on file. Jayden Connelly APRN.BATTER[employer] CONTAINER [employer] Services Provided at: [place], [place] CC: Chadd Deluna Almost had a fall MRI kidney- [facility] Nephrology documented in this encounterGreen Cross Hospital05-04-2022 Evaluation note* Encounter Date Diagnosis Assessment [...] advised her to follow with sleep specialist. [employer] Other 04-21-2022 History of Present illness Narrative* Rinku Ramsey MD - 10/28/2021 11:41 AM EDT Images from the original note were not included. NAME: Andrei Fish CLINIC NO.: [id number] DATE OF SERVICE: October 28, 2021 Some elements in this clinic note that are critical to medical decision making have been carefully reviewed and included from a prior clinic note dated: September 16, 2021 Additional Clinicians involved in Paulalicia Fish's care: [...] why she was going to see a fire crew specialist for her blood pressure. Patient also has [...] which included preparing to see the patient, [id number] patient care, completing clinical documentation, performing a medically appropriate examination, ordering medications, tests, or procedures and care coordination (not separately reporte d). Rinku Ramsey MD, CPE Services Provided at: [facility] [place], [place] & [place], [place] CC: Chadd Deluna documented in this encounterGreen Cross Hospital04-18-2022 History of Present illness Narrative* Mary [...] Care Gap or Scheduling/Wellness visits Payer: Payor: [facility] / Plan: UHC AARP MEDICARE HMO [...] 25, 2021 8:13 AM documented in this encounterGreen Cross Hospital04-12-2022 Miscellaneous Notes* Telephone Encounter - Jayden [...] DAY JOVON: No Authorizing Provider: JAYDEN CONNELLY APRN.BATTER[employer] CONTAINER [employer] documented in this encounterGreen Cross Hospital11-03-2021 Miscellaneous Notes* Telephone Encounter - Krista [...] call with any further questions. Gerard Harden [facility]* Diagnosis Essential hypertension Unspecified essential hypertension Chronic ITP (idiopathic thrombocytopenia) (HCC) Immune thrombocytopenic purpura Obstructive sleep apnea syndrome Obstructive sleep apnea (adult) (pediatric) Hypertension, unspecified type documented in this encounter [facility]* Diagnosis Chronic ITP (idiopathic thrombocytopenia) (HCC)- Primary Immune thrombocytopenic purpura Essential hypertension Unspecified essential hypertension Obstructive sleep apnea syndrome Obstructive sleep apnea (adult) (pediatric) Lung nodules Other nonspecific abnormal finding of lung field Systemic lupus erythematosus, unspecified SLE type, unspecified organ involvement status (HCC) [facility] Diagnosis Chronic ITP (idiopathic thrombocytopenia) (HCC)- Primary Immune thrombocytopenic purpura Hypertension, unspecified type Essential hypertension Unspecified essential hypertension Obstructive sleep apnea syndrome Obstructive sleep apnea (adult) (pediatric) Lung nodules Other nonspecific abnormal finding of lung field Systemic lupus erythematosus, unspecified SLE type, unspecified organ involvement status (HCC) [facility]* Diagnosis Hypertension, unspecified type documented in this encounter [facility]* Diagnosis Essential hypertension Unspecified essential hypertension Chronic ITP (idiopathic thrombocytopenia) (HCC) Immune thrombocytopenic purpura Obstructive sleep apnea syndrome Obstructive sleep apnea (adult) (pediatric) Hypertension, unspecified type [facility]* Diagnosis Hypertension, unspecified type documented in this encounter [facility]* Diagnosis Chronic ITP (idiopathic thrombocytopenia) (HCC)- Primary Immune thrombocytopenic purpura Essential hypertension Unspecified essential hypertension Obstructive sleep apnea syndrome Obstructive sleep apnea (adult) (pediatric) Systemic lupus erythematosus, unspecified SLE type, unspecified organ involvement status (HCC) documented in this encounter [facility]* Diagnosis Hypertension, unspecified type documented in this encounter [facility]* Diagnosis Chronic ITP (idiopathic thrombocytopenia) (HCC)- Primary Immune thrombocytopenic purpura Obstructive sleep apnea syndrome Obstructive sleep apnea (adult) (pediatric) documented in this encounter [facility]* Diagnosis Chronic ITP (idiopathic thrombocytopenia) (HCC)- Primary Immune thrombocytopenic purpura Obstructive sleep apnea syndrome Obstructive sleep apnea (adult) (pediatric) Essential hypertension Unspecified essential hypertension documented in this encounter [facility]* Diagnosis Hypertension, unspecified type documented in this encounter [facility]* Diagnosis Chronic ITP (idiopathic thrombocytopenia) (HCC)- Primary Immune thrombocytopenic purpura Hypertension, unspecified type Obstructive sleep apnea syndrome Obstructive sleep apnea (adult) (pediatric) Systemic lupus erythematosus, unspecified SLE type, unspecified organ involvement status (HCC) documented [facility]* Diagnosis Chronic ITP (idiopathic thrombocytopenia) (HCC)- Primary Immune thrombocytopenic purpura Obstructive sleep apnea syndrome Obstructive sleep apnea (adult) (pediatric) Hypertension, unspecified type Systemic lupus erythematosus, unspecified SLE type, unspecified organ involvement status (HCC) Malaise and fatigue Other malaise and fatigue Skin lesion of right lower extremity documented in this encounter [facility]* Diagnosis Hypertension, unspecified type documented in this encounter [facility] noteNo assessment information availableMer[facility] Work Phone: Evaluation note* Diagnosis Chronic ITP (idiopathic thrombocytopenia) (HCC)- Primary Immune thrombocytopenic purpura Obstructive sleep apnea syndrome Obstructive sleep apnea (adult) (pediatric) documented in this encounter [facility]* Diagnosis Hypertension, unspecified type documented in this encounter [facility]* Diagnosis Chronic ITP (idiopathic thrombocytopenia) (HCC)- Primary Immune thrombocytopenic purpura documented [facility]* Diagnosis Chronic ITP (idiopathic thrombocytopenia) (HCC)- Primary Immune thrombocytopenic purpura Hypertension, unspecified type Obstructive sleep apnea syndrome Obstructive sleep apnea (adult) (pediatric) documented in this encounter [facility]* Diagnosis Chronic ITP (idiopathic thrombocytopenia) (HCC)- Primary Immune thrombocytopenic purpura Essential hypertension Unspecified essential hypertension Obstructive sleep apnea syndrome Obstructive sleep apnea (adult) (pediatric) Systemic lupus erythematosus, unspecified SLE type, unspecified organ involvement status ([facility]) documented in this encounter [facility] noteNo [employer] Other Evaluation note* Diagnosis Chronic ITP (idiopathic thrombocytopenia) (HCC)- Primary Immune thrombocytopenic purpura documented in this encounter [facility]* Diagnosis Chronic ITP (idiopathic thrombocytopenia) (HCC)- Primary Immune thrombocytopenic purpura Essential hypertension Unspecified essential hypertension documented in this encounter [facility]* Diagnosis Chronic ITP (idiopathic thrombocytopenia) (HCC)- Primary Immune thrombocytopenic purpura Essential hypertension Unspecified essential hypertension Hypertension, unspecified type documented [facility] encounter [facility]* Diagnosis 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, left [facility] Diagnosis 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 [facility] encounter [facility]* Diagnosis Chronic ITP (idiopathic thrombocytopenia) (HCC)- Primary Immune thrombocytopenic purpura Essential hypertension Unspecified essential hypertension Obstructive sleep apnea syndrome Obstructive sleep apnea (adult) (pediatric) Systemic lupus erythematosus, unspecified SLE type, unspecified organ involvement status (HCC) Malaise and fatigue Other malaise and fatigue documented in this encounter [facility] note* Diagnosis Hypertension, unspecified type documented in this encounter [facility]* Diagnosis Cholesteatoma of left ear documented in this encounter [facility] Work Phone: Evaluation note* Diagnosis Cholesteatoma of left ear Perforation of left tympanic membrane Cholesteatoma of left ear documented in this encounter [facility] Work Phone: Evaluation note* Diagnosis Chronic ITP (idiopathic thrombocytopenia) (HCC)- Primary Immune thrombocytopenic purpura Stage 3b chronic kidney disease (HCC) Secondary hypertension Other secondary hypertension, unspecified Obstructive sleep apnea syndrome Obstructive sleep apnea (adult) (pediatric) documented in this encounter [facility]* Diagnosis Preoperative examination- Primary Preoperative examination, unspecified Preoperative clearance- Primary Preoperative examination, unspecified documented in this encounter [facility]* Diagnosis Cholesteatoma of left ear- Primary Preoperative clearance Unspecified pre-operative examination Cholesteatoma of left ear Post-operative pain Other acute postoperative pain HTN (hypertension) Unspecified essential hypertension documented in this encounter [facility] Work Phone: Evaluation note* Diagnosis Essential hypertension Unspecified essential hypertension Chronic ITP (idiopathic thrombocytopenia) (HCC) Immune thrombocytopenic purpura Obstructive sleep apnea syndrome Obstructive sleep apnea (adult) (pediatric) documented in this encounter [facility]* Diagnosis Chronic ITP (idiopathic thrombocytopenia) (HCC)- Primary Immune thrombocytopenic purpura Essential hypertension Unspecified essential hypertension Obstructive sleep apnea syndrome Obstructive sleep apnea (adult) (pediatric) Stage 3b chronic kidney disease (HCC) documented in this encounter [facility]* Diagnosis 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 Other vitamin B12 deficiency anemia Abnormal weight loss Loss of weight Lupus (HCC) Systemic lupus erythematosus Thrombocytopenia (HCC) Thrombocytopenia, unspecified Chronic ITP (idiopathic thrombocytopenia) (HCC) Immune thrombocytopenic purpura documented in this encounter [facility]* Diagnosis Chronic ITP (idiopathic thrombocytopenia) (HCC)- 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 Other vitamin B12 deficiency anemia Obstructive sleep apnea syndrome Obstructive sleep apnea (adult) (pediatric) documented in this encounter [facility]* Diagnosis Pain in left leg [facility] Diagnosis Left leg pain- Primary Pain in soft tissues of limb [facility] - Reported* Type Description Date Medical History PULMONARY NODULES Medical History LUPUS Medical History THROMBOCYTOPENIA Medical History HYPERTESNION Surgical History APPENDECTOMY Surgical History BACK SURGERY Surgical History CYST REMOVAL FROM LEFT BREAST Surgical History GALL BLADDER REMOVED Surgical History PARTIAL HYSTERECTOMY Surgical History OVARY REMOVAL Surgical History LEFT LEG FRACTURE WITH PIN AND PLATE PLACEMENT Hospitalization History SEE ABOVE [employer] Other History general Narrative - Reported* Type [...] AND PLATE PLACEMENT Hospitalization History SEE ABOVE [employer] Other InstructionsNot on filedocumented in this encounter [facility] [employer] Summary Purpose Family History No Family History [...] Specialty Diagnoses / Procedures Referred By Sobia t Referred To Contact Diagnoses Left leg pain Procedures NM bone 3 phase Blaise Alex PA [address] [place] [address] [place] [address] Referral ID Status Reason Start Date Expiration Date V isits Requested Visits Authorized [id number] Pending Review 04/09/2024 10/06/2024 4 4 Specialty Diagnoses / Procedures Referred By Sobia t Referred To Contact Radiology Diagnoses Cholesteatoma of left ear Procedures CT internal auditory canals [place] [id number] [place] [address] Referral ID Status Reason Start Date Expiration Date Visits Requested Visits Authorized [id number] Pending Review Perform Procedure 11/14/2023 11/13/2024 1 1 Specialty Diagnoses / Procedures Referred By Sobia t Referred To Contact Dermatology Diagnoses Skin lesion of right lower extremity Procedures CONSULT TO DERMATOLOGY Jayden Connelly, MIRIAM.[address] [place] [address] Referral ID Status Reason Start Date Expiration Date Visits Requested Visits Authorized [id number] Ref Not Required PCP Requested Referral 08/04/2022 08/04/2023 1 1 Chief Complaint and Reason for Visit Chief Complaint HTN Lupus Chronic IT P I10 M32.9 D693 G47.33 n28.1 Additional Source Comments INFORMATION SOURCE (unrecogn ized section and content) DATE CREATED AUTHOR 01/02/2018 [facility] DATE CREATED AUTHOR AUTHOR'S ORGANIZ ATION 08/18/2023 [facility] DATE CREATED AUTHOR AUTHOR'S ORGANIZ ATION 12/23/2023 [facility] DATE CREATED AUTHOR AUTHOR'S ORGANIZ ATION 12/30/2023 [facility] DATE CREATED AUTHOR AUTHOR'S ORGANIZ ATION 02/08/[address] [facility] DATE CREATED AUTHOR AUTHOR'S ORGANIZ ATION 04/11/2024 [facility] DATE CREATED AUTHOR AUTHOR'S ORGANIZ ATION 04/12/2024 [facility] DATE CREATED AUTHOR AUTHOR'S ORGANIZ ATION 04/14/2024 [facility] EPIC Source Comments (unrecognize d section and content) In the event this informatio n is protected by the Federal Confidentiality of Alcohol and Drug Abuse Patient Records regulations: The Federal rules restrict any use of the information to criminally investigate or prosecute any alcohol or drug abuse patient.[facility] Cross HospitalIn the event this information is protected by the Federal Confidentiality of Alcohol and Drug Abuse Patient Records regulations: The Federal rules restrict any use of the information to criminally investigate or prosecute any alcohol or drug abuse patient.[facility] HospitalIn the event this information is protected by the Federal Confidentiality of Alcohol and Drug Abuse Patient Records regulations: The Federal rules restrict any use of the information to criminally investigate or prosecute any alcohol or drug abuse patient.[facility] HospitalIn the event this information is protected by the Federal Confidentiality of Alcohol and Drug Abuse Patient Records regulations: The Federal rules restrict any use of the information to criminally investigate or prosecute any alcohol or drug abuse patient.[facility] Cross HospitalIn the event this information is protected by the Federal Confidentiality of Alcohol and Drug Abuse Patient Records regulations: The Federal rules restrict any use of the information to criminally investigate or prosecute any alcohol or drug abuse patient.[facility] Cross HospitalIn the event this information is protected by the Federal Confidentiality of Alcohol and Drug Abuse Patient Records regulations: The Federal rules restrict any use of the information to criminally investigate or prosecute any alcohol or drug abuse patient.[facility] Cross HospitalIn the event this information is protected by the Federal Confidentiality of Alcohol and Drug Abuse Patient Records regulations: The Federal rules restrict any use of the information to criminally investigate or prosecute any alcohol or drug abuse patient.[facility] HospitalIn the event this information is protected by the Federal Confidentiality of Alcohol and Drug Abuse Patient Records regulations: The Federal rules restrict any use of the information to criminally investigate or prosecute any alcohol or drug abuse patient.[facility] Cross HospitalIn the event this information is protected by the Federal Confidentiality of Alcohol and Drug Abuse Patient Records regulations: The Federal rules restrict any use of the information to criminally investigate or prosecute any alcohol or drug abuse patient.[facility] Cross HospitalIn the event this information is protected by the Federal Confidentiality of Alcohol and Drug Abuse Patient Records regulations: The Federal rules restrict any use of the information to criminally investigate or prosecute any alcohol or drug abuse patient.[facility] Cross HospitalIn the event this information is protected by the Federal Confidentiality of Alcohol and Drug Abuse Patient Records regulations: The Federal rules restrict any use of the information to criminally investigate or prosecute any alcohol or drug abuse patient.[facility] Cross HospitalIn the event this information is protected by the Federal Confidentiality of Alcohol and Drug Abuse Patient Records regulations: The Federal rules restrict any use of the information to criminally investigate or prosecute any alcohol or drug abuse patient.[facility] Cross HospitalIn the event this information is protected by the Federal Confidentiality of Alcohol and Drug Abuse Patient Records regulations: The Federal rules restrict any use of the information to criminally investigate or prosecute any alcohol or drug abuse patient.[facility] Cross HospitalIn the event this information is protected by the Federal Confidentiality of Alcohol and Drug Abuse Patient Records regulations: The Federal rules restrict any use of the information to criminally investigate or prosecute any alcohol or drug abuse patient.[facility] Cross HospitalIn the event this information is protected by the Federal Confidentiality of Alcohol and Drug Abuse Patient Records regulations: The Federal rules restrict any use of the information to criminally investigate or prosecute any alcohol or drug abuse patient.[facility] Cross HospitalIn the event this information is protected by the Federal Confidentiality of Alcohol and Drug Abuse Patient Records regulations: The Federal rules restrict any use of the information to criminally investigate or prosecute any alcohol or drug abuse patient.[facility] HospitalIn the event this information is protected by the Federal Confidentiality of Alcohol and Drug Abuse Patient Records regulations: The Federal rules restrict any use of the information to criminally investigate or prosecute any alcohol or drug abuse patient.[facility] Cross HospitalIn the event this information is protected by the Federal Confidentiality of Alcohol and Drug Abuse Patient Records regulations: The Federal rules restrict any use of the information to criminally investigate or prosecute any alcohol or drug abuse patient.[facility] HospitalIn the event this information is protected by the Federal Confidentiality of Alcohol and Drug Abuse Patient Records regulations: The Federal rules restrict any use of the information to criminally investigate or prosecute any alcohol or drug abuse patient.[facility] Cross HospitalIn the event this information is protected by the Federal Confidentiality of Alcohol and Drug Abuse Patient Records regulations: The Federal rules restrict any use of the information to criminally investigate or prosecute any alcohol or drug abuse patient.[facility] Cross HospitalIn the event this information is protected by the Federal Confidentiality of Alcohol and Drug Abuse Patient Records regulations: The Federal rules restrict any use of the information to criminally investigate or prosecute any alcohol or drug abuse patient.[facility] Cross HospitalIn the event this information is protected by the Federal Confidentiality of Alcohol and Drug Abuse Patient Records regulations: The Federal rules restrict any use of the information to criminally investigate or prosecute any alcohol or drug abuse patient.[facility] HospitalIn the event this information is protected by the Federal Confidentiality of Alcohol and Drug Abuse Patient Records regulations: The Federal rules restrict any use of the information to criminally investigate or prosecute any alcohol or drug abuse patient.[facility] HospitalIn the event this information is protected by the Federal Confidentiality of Alcohol and Drug Abuse Patient Records regulations: The Federal rules restrict any use of the information to criminally investigate or prosecute any alcohol or drug abuse patient.[facility] HospitalIn the event this information is protected by the Federal Confidentiality of Alcohol and Drug Abuse Patient Records regulations: The Federal rules restrict any use of the information to criminally investigate or prosecute any alcohol or drug abuse patient.[facility] HospitalIn the event this information is protected by the Federal Confidentiality of Alcohol and Drug Abuse Patient Records regulations: The Federal rules restrict any use of the information to criminally investigate or prosecute any alcohol or drug abuse patient.[facility] HospitalIn the event this information is protected by the Federal Confidentiality of Alcohol and Drug Abuse Patient Records regulations: The Federal rules restrict any use of the information to criminally investigate or prosecute any alcohol or drug abuse patient.[facility] HospitalIn the event this information is protected by the Federal Confidentiality of Alcohol and Drug Abuse Patient Records regulations: The Federal rules restrict any use of the information to criminally investigate or prosecute any alcohol or drug abuse patient.[facility] HospitalIn the event this information is protected by the Federal Confidentiality of Alcohol and Drug Abuse Patient Records regulations: The Federal rules restrict any use of the information to criminally investigate or prosecute any alcohol or drug abuse patient.[facility] HospitalIn the event this information is protected by the Federal Confidentiality of Alcohol and Drug Abuse Patient Records regulations: The Federal rules restrict any use of the information to criminally investigate or prosecute any alcohol or drug abuse patient.[facility] HospitalIn the event this information is protected by the Federal Confidentiality of Alcohol and Drug Abuse Patient Records regulations: The Federal rules restrict any use of the information to criminally investigate or prosecute any alcohol or drug abuse patient.[facility] HospitalIn the event this information is protected by the Federal Confidentiality of Alcohol and Drug Abuse Patient Records regulations: The Federal rules restrict any use of the information to criminally investigate or prosecute any alcohol or drug abuse patient.[facility] HospitalIn the event this information is protected by the Federal Confidentiality of Alcohol and Drug Abuse Patient Records regulations: The Federal rules restrict any use of the information to criminally investigate or prosecute any alcohol or drug abuse patient.[facility] HospitalIn the event this information is protected by the Federal Confidentiality of Alcohol and Drug Abuse Patient Records regulations: The Federal rules restrict any use of the information to criminally investigate or prosecute any alcohol or drug abuse patient.[facility] HospitalIn the event this information is protected by the Federal Confidentiality of Alcohol and Drug Abuse Patient Records regulations: The Federal rules restrict any use of the information to criminally investigate or prosecute any alcohol or drug abuse patient.[facility] HospitalIn the event this information is protected by the Federal Confidentiality of Alcohol and Drug Abuse Patient Records regulations: The Federal rules restrict any use of the information to criminally investigate or prosecute any alcohol or drug abuse patient.[facility] HospitalIn the event this information is protected by the Federal Confidentiality of Alcohol and Drug Abuse Patient Records regulations: The Federal rules restrict any use of the information to criminally investigate or prosecute any alcohol or drug abuse patient.[facility] HospitalIn the event this information is protected by the Federal Confidentiality of Alcohol and Drug Abuse Patient Records regulations: The Federal rules restrict any use of the information to criminally investigate or prosecute any alcohol or drug abuse patient.[facility] HospitalIn the event this information is protected by the Federal Confidentiality of Alcohol and Drug Abuse Patient Records regulations: The Federal rules restrict any use of the information to criminally investigate or prosecute any alcohol or drug abuse patient.[facility] HospitalIn the event this information is protected by the Federal Confidentiality of Alcohol and Drug Abuse Patient Records regulations: The Federal rules restrict any use of the information to criminally investigate or prosecute any alcohol or drug abuse patient.[facility] HospitalIn the event this information is protected by the Federal Confidentiality of Alcohol and Drug Abuse Patient Records regulations: The Federal rules restrict any use of the information to criminally investigate or prosecute any alcohol or drug abuse patient.[facility] HospitalIn the event this information is protected by the Federal Confidentiality of Alcohol and Drug Abuse Patient Records regulations: The Federal rules restrict any use of the information to criminally investigate or prosecute any alcohol or drug abuse patient.[facility] HospitalIn the event this information is protected by the Federal Confidentiality of Alcohol and Drug Abuse Patient Records regulations: The Federal rules restrict any use of the information to criminally investigate or prosecute any alcohol or drug abuse patient.[facility] HospitalIn the event this information is protected by the Federal Confidentiality of Alcohol and Drug Abuse Patient Records regulations: The Federal rules restrict any use of the information to criminally investigate or prosecute any alcohol or drug abuse patient.[facility] HospitalIn the event this information is protected by the Federal Confidentiality of Alcohol and Drug Abuse Patient Records regulations: The Federal rules restrict any use of the information to criminally investigate or prosecute any alcohol or drug abuse patient.[facility] HospitalIn the event this information is protected by the Federal Confidentiality of Alcohol and Drug Abuse Patient Records regulations: The Federal rules restrict any use of the information to criminally investigate or prosecute any alcohol or drug abuse patient.[facility] HospitalIn the event this information is protected by the Federal Confidentiality of Alcohol and Drug Abuse Patient Records regulations: The Federal rules restrict any use of the information to criminally investigate or prosecute any alcohol or drug abuse patient.[facility] HospitalIn the event this information is protected by the Federal Confidentiality of Alcohol and Drug Abuse Patient Records regulations: The Federal rules restrict any use of the information to criminally investigate or prosecute any alcohol or drug abuse patient.[facility] HospitalIn the event this information is protected by the Federal Confidentiality of Alcohol and Drug Abuse Patient Records regulations: The Federal rules restrict any use of the information to criminally investigate or prosecute any alcohol or drug abuse patient.[facility] HospitalIn the event this information is protected by the Federal Confidentiality of Alcohol and Drug Abuse Patient Records regulations: The Federal rules restrict any use of the information to criminally investigate or prosecute any alcohol or drug abuse patient.[facility] HospitalIn the event this information is protected by the Federal Confidentiality of Alcohol and Drug Abuse Patient Records regulations: The Federal rules restrict any use of the information to criminally investigate or prosecute any alcohol or drug abuse patient.[facility] Reason for Visit (unrecogniz ed section [...] up Specialty Diagnoses / Procedures Referred By Contac t Referred To Contact Radiology Diagnoses Cholesteatoma of left ear Procedures CT internal auditory canals posterior [place] [address] [place] [address] Referral ID Status Reason Start Date Expiration Date Visits Requested Visits Authorized [id number] Pending Review Perform Procedure 11/14/2023 11/13/2024 1 1 Reason Comments Hearing Loss Reason Comments Chronic ITP 6 week follow up Reason Comments Call Request Specialty Diagnoses / Procedures Referred By Contac t Referred To Contact Diagnoses 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 [H71.92] Procedures TX TMPP MASTOIDECT NTC/RCNSTED CANAL WALL OCR TX GRAFT EAR CRTLG AUTOGENOUS NOSE/EAR TX TMPP MASTOIDECTOMY W/OSSICULAR CHAIN RECNSTJ Left Side Tympanomastoidectomy Canal Wall Up; Ossiculoplasty; [place] [address] [place] [address] [facility] [address] [place] [address] Referral ID Status Reason Start Date Expiration Date Visits Re quested Visits Authorized [id number] 1 1 Reason Onset Date Comments Refill Request 01/25/2024 Reason Onset Date Comments Refill Request 04/02/2024 Reason Comments Thyroid fine needle biopsy at [facility]/ITP Reason Comments Pain Specialty Diagnoses / Procedures Referred By Contac t Referred To Contact Orthopaedic Surgery Diagnoses Posterior left knee pain Stephanie Dumont, JORDI [address] [place] [address] Jr. Ambrose Avalos DO [address] [place] [address] Referral ID Status Reason Start Date Expiration Date V isits Requested Visits Authorized [id number] Closed Specialty Services Required 04/04/2024 10/01/2024 1 1 Care Teams (unrecognized sec tion and content) Disability Program Navigator Relationship Specialty Start Date End Date Paloma Saldaña [place] [address] PCP - General Family Practice 05/26/21 05/31/21 Team Status: Inactive Member Role Status Dates Gilson Sarah MD Attending Provider Active NON STAFF Primary Care Provider Active Team Status: Active Member Role Status Dates NON STAFF Primary Care Provider Active Disability Program Navigator Relationship Specialty Start Date End Date Shaikh Biswas MD [address] [place] [address] PCP - General Primary Care 09/15/22 Disability Program Navigator Relationship Specialty Start Date End Date Shaikh Biswas MD [facility] [place] [address] PCP - General Primary Care 09/15/22 Disability Program Navigator Relationship Specialty Start Date End Date Shaikh Biswas MD [facility] [place] [address] PCP - General Primary Care 09/15/22 Disability Program Navigator Relationship Specialty Start Date End Date Shaikh Biswas MD [facility] [place] [address] PCP - General Primary Care 09/15/22 Disability Program Navigator Relationship Specialty Start Date End Date Stephanie Dumont [address] [place] [address] PCP - General 04/20/23 Disability Program Navigator Relationship Specialty Start Date End Date Stephanie Dumont [address] [place] [address] PCP - General 04/20/23 Disability Program Navigator Relationship Specialty Start Date End Date Stephanie Dumont [address] [place] [address] PCP - General 04/20/23 Disability Program Navigator Relationship Specialty Start Date End Date Wilfred Polanco MD [address] [place] [address] PCP - General Family Medicine 07/17/23 Stephanie Dumont NP [address] [place] [address] Nurse Practitioner Family Medicine 04/09/23 Disability Program Navigator Relationship Specialty Start Date End Date Wilfred Polanco MD [address] [place] [address] PCP - General Family Medicine 07/17/23 Stephanie Dumont NP [address] [place] [address] Nurse Practitioner Family Medicine 04/09/23 Disability Program Navigator Relationship Specialty Start Date End Date Wilfred Polanco MD [address] [place] [address] PCP - General Family Medicine 08/17/23 Stephanie Dumont NP [address] [place] [address] Nurse Practitioner Family Medicine 04/09/23 Disability Program Navigator Relationship Specialty Start Date End Date Wilfred Polanco MD [address] [place] [address] PCP - General Family Medicine 08/17/23 Stephanie Dumont NP [address] [place] [address] Nurse Practitioner Family Medicine 04/09/23 Disability Program Navigator Relationship Specialty Start Date End Date Wilfred Polanco MD [address] [place] [address] PCP - General Family Medicine 08/17/23 Stephanie Dumont NP [address] [place] [address] Nurse Practitioner Family Medicine 04/09/23 Disability Program Navigator Relationship Specialty Start Date End Date Stephanie Dumont [address] [place] [address] PCP - General 04/20/23 Disability Program Navigator Relationship Specialty Start Date End Date Stephanie Dumont [address] [place] [address] PCP - General 04/20/23 Disability Program Navigator Relationship Specialty Start Date End Date Stephanie Dumont [address] [place] [address] PCP - General 04/20/23 Disability Program Navigator Relationship Specialty Start Date End Date Stephanie Dumont [address] [place] [address] PCP - General 04/20/23 Disability Program Navigator Relationship Specialty Start Date End Date Stephanie Dumont PCP - General 04/20/23 Disability Program Navigator Relationship Specialty Start Date End Date MaurisioernestinaStephanie miranda PCP - General 04/20/23 Disability Program Navigator Relationship Specialty Start Date End Date KwandaeStephanie PCP - General 04/20/23 Disability Program Navigator Relationship Specialty Start Date End Date MaurisiotaylaStephanie PCP - General 04/20/23 Disability Program Navigator Relationship Specialty Start Date End Date MaurisiotaylaStephanie PCP - General 04/20/23 Disability Program Navigator Relationship Specialty Start Date End Date MaurisiotaylaStephanie PCP General 04/20/23 Disability Program Navigator Relationship Specialty Start Date End Date MaurisiotaylaStephanie Caden [employer] PCP - General Nurse Practitioner 07/25/22 Disability Program Navigator Relationship Specialty Start Date End Date MaurisioernestinaStephanie miranda PCP - General 04/20/23 Disability Program Navigator Relationship Specialty Start Date End Date Wilfred Polanco MD [address] [place] [address] PCP - [facility] Family Medicine 08/17/23 Stephanie Dumont NP [address] [place] [address] PCP - [facility] 10/09/23 12/07/70 Stephanie Dumont NP [address] [place] [address] Nurse Practitioner Family Medicine 04/09/23 Goals (unrecognized section and content) Goals may be documented in a n alternate section Scheduled Active and Recently Administ ered Medications (unrecognized section and content) Medication Order 12/16/2023 12/17/2023 12/18/2023 acetaminophen (Tylenol) tablet 975 mg (COMPLETED) 975 mg, oral, Once, On 12/18/23 at 1430, For 1 dose, Recovery & On Unit, If ordered PRN for pain, nurse is permitted to administer this medication for higher pain scores based on patient preference? Yes 2572 (Given - Provid er: Pamela Paul RN) [...] needed, Starting on Mon12/18/23 at 0904, Intraprocedure 09 (Given - Provid er: Susanna [...] needed, Starting on Mon12/18/23 at 0909, Intraprocedure 09 (Given - Provid er: Susanna [...] needed, Starting on Mon12/18/23 at 0906, Intraprocedure 0906 (Given - Provid er: Susanna Graf MD [...] irrigation solution (CANCELED) As needed, Starting on Mon12/18/23 at 0908, Intraprocedure 0908 (Given - Provid er: Susanna Graf MD - Comment: Also 1L bottle warmed on field) sodium chloride bacteriostatic 0.9 % injection (CANCELED) As needed, Starting on Mon12/18/23 at 0907, Intraprocedure 0907 (Given - Provid [...] BE BASED ON THE PRIMARY CLINICAL RECORDS. [employer] [facility]. provides no warranty or guarantee of the accuracy or completeness of information in this document.
[2024-04-16] MEDS: LIDOCAINE HCL 10 ML, SODIUM BICARBONATE 1 MEQ INJ (14:45)
--- NOTE | 2024-04-16 15:34 | PC.NURSE ---
04/11/24 Pt instructed on procedure, date, time, and prep.
== END 2024-04-16 15:15 | disposition home or self-care (01) ==
LOC: US 13:53
PROVIDERS: Radiology Diagnostic Radiology; PCP Nurse Practitioner; Visit Provider Nurse Practitioner
DX: E04.1 Nontoxic single thyroid nodule (principal)
CPT/HCPCS: 10005

== ENCOUNTER 2024-05-28 10:15 | Outpatient (OUT) | payer MEDICARE, SELFPAY ==
--- NOTE | 2024-05-28 10:44 | CT_ITS ---
[address] [address] Patient Name: JASPREET LEO MRN: [id number] date: 1950 Sex: F Assigned Patient Location: CT Current Patient Location: Accession/Order Number: [id number] Exam Date: 05/28/2024 11:02 Report Date: 05/29/2024 06:00 At the request of: ALEXI TOPETE Procedure: CT chest wo con EXAMINATION: CT chest wo con HISTORY: Multiple Lung Nodules COMPARISON: CT chest 02/12/2024 TECHNIQUE: Axial, Coronal, and Sagittal images were created without the administration of IV contrast material. Dose reduction techniques were achieved by using automated exposure control and/or adjustment of mA and/or kV according to patient size and/or use of iterative reconstruction technique. FINDINGS: LUNGS: Numerous small, subcentimeter nodules scattered within the lungs. The only irregular nodule is within the posterior right upper lobe, 9 mm, (series 4 image 30). Calcified granuloma within posterior right lung base. No new nodules or acute infiltrates. PLEURA: No mass, effusion, or pneumothorax. VASCULATURE: No abnormality. BIJAL: No mass or pathologic adenopathy. MEDIASTINUM: No mass or pathologic adenopathy. CARDIAC: No enlargement, pericardial thickening, or pericardial effusion. Coronary Artery calcifications: Coronary calcifications are heavy. AORTA: No aneurysm or dissection. CHEST WALL: Stable prominent right thyroid lobe. No axillary mass or adenopathy BONES: No bone lesion or fracture. LIMITED ABDOMEN: No suspicious findings. Limited images of the upper abdomen. OTHER: Negative. CT/CT chest wo con IMPRESSION: 1. Stable appearance of numerous small nodules scattered within the lungs. Consider follow-up CT chest in 6 months to document continued stability and to help establish baseline. Electronically authenticated by: THA SALGUERO Date: 05/29/2024 06:00
== END 2024-05-28 10:16 | disposition home or self-care (01) ==
LOC: CT 10:15
PROVIDERS: PCP Nurse Practitioner; Visit Provider Nurse Practitioner
DX: R91.8 Other nonspecific abnormal finding of lung field (principal)
CPT/HCPCS: 71250

== ENCOUNTER 2024-09-17 14:01 | Outpatient (OUT) | payer MEDICARE, SELFPAY ==
--- NOTE | 2024-09-17 | US_ITS ---
The [address] [address] Patient Name: JASPREET LEO MRN: [id number] date: 1950 Sex: F Assigned Patient Location: US Current Patient Location: US Accession/Order Number: [id number] Exam Date: 09/17/2024 18:55 Report Date: 09/17/2024 19:07 At the request of: MAR MAYO MD Procedure: US thyroid Thyroid Ultrasound HISTORY: Thyroid nodule. Negative biopsy COMPARISON: 04/03/2024 The RIGHT lobe measures 4.1 x 1.7 x 1.7cm. LEFT lobe measures 3.6 x 1.8 x 2.0 cm. Isthmus has an AP dimension of 0.2cm. Heterogeneous thyroid parenchyma.. The 1.5 cm the right superior solid isoechoic and tolerated wide nodule unchanged. 2.0 cm right mid solid isoechoic thyroid nodule unchanged. 5 mm left superior solid hypoechoic nodule redemonstrated. 2.3 cm left mid solid isoechoic nodule redemonstrated. No microcalcifications identified. Symmetric blood flow of the thyroid gland identified. US/US thyroid IMPRESSION: Redemonstration of similar bilateral thyroid nodules. There are no new or significantly enlarging thyroid nodules. Impression dictated by: Valentin Peralta M.D.09/17/2024 7:07 PM Dictation Location: [facility]ST[facility] CENTERUnight Electronically authenticated by: [id number] Date: 09/17/2024 19:07
== END 2024-09-17 14:02 | disposition home or self-care (01) ==
LOC: US 14:01
PROVIDERS: PCP Nurse Practitioner; Visit Provider Otolaryngology
DX: E04.1 Nontoxic single thyroid nodule (principal)
CPT/HCPCS: 76536

== ENCOUNTER 2024-11-11 07:35 | Emergency (ER) | payer MEDICARE, SELFPAY ==
[2024-11-11 07:40] VITALS: BP 157/71; PULSE 69; TEMP 36.4; O2SAT 98; BMI 32.6
[2024-11-11] MEDS: OXYCODONE HCL/ACETAMINOPHEN 5MG/325MG 1 TAB PO (08:08)
[2024-11-11] MEDS: IBUPROFEN 600 MG TABLET PO (08:08)
[2024-11-11 08:56] VITALS: BP 148/88; PULSE 88; O2SAT 98
--- NOTE | 2024-11-11 09:02 | ED.GENADUL1 ---
HPI HPI - General Adult General Chief complaint: Extremity Problem, Nontraumatic Stated complaint: PAIN IN R ANKLE Time Seen by Provider: 11/11/24 07:41 Source: patient and family Mode of arrival: Wheelchair Limitations: no limitations History of Present Illness HPI narrative: 73-year-old female to the emergency department chief complaint of right ankle pain. It has been ongoing for several days. Patient was at a celebration of life in [place] yesterday and the pain seemed to get worse. He was aching her throughout the night. No specific injury. No redness, warmth, swelling. She has otherwise been at her baseline health. No chest pain or shortness of breath. Related Data Home Medications ?Medication ?Instructions ?Recorded ?Confirmed fostamatinib 100 mg tablet 100 mg PO BID 03/12/23 04/16/24 (Tavalisse) hydrochlorothiazide 25 mg tablet 25 mg PO DAILY 03/12/23 04/16/24 losartan 25 mg tablet 50 mg PO BID 03/12/23 04/16/24 pilocarpine HCl 5 mg tablet 5 mg PO BID 03/12/23 04/16/24 spironolactone 25 mg tablet 25 mg PO DAILY 03/12/23 04/12/24 alendronate 70 mg tablet 70 mg PO .QMonth 11/28/23 04/16/24 ergocalciferol (vitamin D2) 1,250 1,250 mcg PO QWEEK 11/28/23 04/16/24 mcg (50,000 unit) capsule metoprolol tartrate 25 mg tablet 12.5 mg PO DAILY 04/12/24 04/16/24 Previous Rx's ?Medication ?Instructions ?Recorded methocarbamol 750 mg tablet 750 mg PO TID PRN pain #20 tabs 02/12/24 ondansetron 4 mg disintegrating 4 mg PO Q6H PRN nausea and 02/12/24 tablet vomiting #12 tabs oxycodone-acetaminophen 5 mg-325 1 tab PO Q6H PRN pain 3 days #12 02/12/24 mg tablet (Percocet) tabs naproxen 500 mg tablet 500 mg PO BID PRN pain #8 tabs 11/11/24 Allergies Allergy/AdvReac Type Severity Reaction Status Date / Time vancomycin AdvReac Mild burning Verified 11/11/24 07:40 dpt vaccine Allergy Rash Uncoded 11/11/24 07:40 Opioid HPI Opioid Management Most Recent Opioid Data: Last Pain Scale 10 02/12/24, 16:31 Review of Systems ROS Status of ROS 10 or more systems reviewed and unremarkable except as noted in history and [facility] Medical History (Updated 11/11/24 @ 09:20 by Marcelino Fernandez MD) Osteoporosis ?M81.0 - Age-related osteoporosis without current pathological fracture (ICD-10) HTN (hypertension) ?I10 - Essential (primary) hypertension (ICD-10) Idiopathic thrombocytopenia ?D69.3 - Immune thrombocytopenic purpura (ICD-10) Surgical History (Updated 04/16/24 @ 15:34 by Emilia Lanza) H/O fine needle aspiration with imaging guidance ?Z98.890 - Other specified postprocedural states (ICD-10) H/O: hysterectomy ?Z90.710 - Acquired absence of both cervix and uterus (ICD-10) S/P ORIF (open reduction internal fixation) fracture ?Z98.890 - Other specified postprocedural states (ICD-10) ?Z87.81 - Personal history of (healed) traumatic fracture (ICD-10) Status post blepharoplasty of both eyes ?Z98.890 - Other specified postprocedural states (ICD-10) H/O colonoscopy ?Z98.890 - Other specified postprocedural states (ICD-10) Hx of cholecystectomy ?Z90.49 - Acquired absence of other specified parts of digestive tract (ICD-10) Status post breast lumpectomy ?Z98.890 - Other specified postprocedural states (ICD-10) History of breast biopsy ?Z98.890 - Other specified postprocedural states (ICD-10) Hx of appendectomy ?Z90.49 - Acquired absence of other specified parts of digestive tract (ICD-10) Social History Smoking status: Current every day smoker Little interest or pleasure in doing things: not at all Feeling down, depressed, or hopeless: not at all Exam Narrative Exam Narrative: VITALS: I have reviewed the triage vital signs. GENERAL: Well developed, well appearing adult in no acute distress. NEURO: Alert and oriented. Moves all extremities. Face is symmetric and expressive. EYES: PERRL. No scleral icterus or conjunctival injection. No discharge. HENT: Normocephalic, atraumatic. Hearing is grossly intact. Nares grossly patent and without discharge. Mucous membranes moist. NECK: No JVD. Patient moves neck without restriction. Right lower Extremity: DP and PT pulses intact. Limb is similar color and temperature to the contralateral limb. Compartments soft. No swelling. No erythema or warmth. No ecchymosis. + medial malleolus and lateral malleolus tenderness. No tenderness at the base of the fifth metatarsal. No midfoot tenderness. No fibular head tenderness. Able to bear weight with arches maintained. Sensation is intact over the foot and lower leg. Dorsiflexion/plantar flexion, knee flexion/extension, hip flexion/extension are grossly intact by strength testing. SKIN: Warm and dry. Normal turgor. No rash or lesions appreciated. PSYCH: Mood, affect, and interaction is appropriate to the setting. Constitutional Vital Signs, click to edit/add: Last Vital Signs Temp 97.5 F L 11/11/24 07:40 Pulse 88 11/11/24 08:56 Resp 18 11/11/24 08:56 BP 148/88 H 11/11/24 08:56 Pulse Ox 98 11/11/24 08:56 O2 Del Method Room Air 11/11/24 07:40 Course Vital Signs Vital signs: Vital Signs Temperature 97.5 F L 11/11/24 07:40 Pulse Rate 69 11/11/24 07:40 Respiratory Rate 18 11/11/24 07:40 Blood Pressure 157/71 H 11/11/24 07:40 Pulse Oximetry 98 11/11/24 07:40 Oxygen Delivery Method Room Air 11/11/24 07:40 Temperature 97.5 F L 11/11/24 07:40 Pulse Rate 88 11/11/24 08:56 Respiratory Rate 18 11/11/24 08:56 Blood Pressure 148/88 H 11/11/24 08:56 Pulse Oximetry 98 11/11/24 08:56 Oxygen Delivery Method Room Air 11/11/24 07:40 Medical Decision Making MDM Narrative Medical decision making narrative: 73-year-old female to the emergency department chief complaint of right ankle pain. Symptoms began over the last 4 days. Worse after going to a celebration of life in [place] yesterday. She reports aching her throughout the night. She reports she has had similar pain in her knee before after overdoing it. Limb is neurovascularly intact, good pulses and cap refill. There is no evidence of an infectious process. X-ray to be obtained. No medications attempted prior to arrival. Percocet and ibuprofen for discomfort. X-ray without acute findings. Discussed findings with the patient. Discussed rest, Thaddeus wrap, as needed pain medication at home. She has upcoming follow-up with her PCP. Return precautions were discussed. All questions were answered. The patient was discharged home. Medical Records Medical records reviewed: Yes I reviewed the patient's medical records Imaging Data X-ray ankle: Attestation: I have reviewed the pertinent imaging results. Discharge Plan Discharge Chief Complaint: Extremity Problem, Nontraumatic Clinical Impression: Ankle pain Patient Disposition: Home, Self-Care Time of Disposition Decision: 09:20 Condition: Good Mode of Transportation: Private Vehicle Prescriptions / Home Meds: New naproxen 500 mg tablet 500 mg PO BID PRN (Reason: pain) Qty: 8 0RF No Action ergocalciferol (vitamin D2) 1,250 mcg (50,000 unit) capsule 1,250 mcg PO QWEEK alendronate 70 mg tablet 70 mg PO .QMonth metoprolol tartrate 25 mg tablet 12.5 mg PO DAILY spironolactone 25 mg tablet 25 mg PO DAILY Tavalisse 100 mg tablet 100 mg PO BID hydrochlorothiazide 25 mg tablet 25 mg PO DAILY pilocarpine HCl 5 mg tablet 5 mg PO BID losartan 25 mg tablet 50 mg PO BID oxycodone-acetaminophen [Percocet] 5-325 mg tablet 1 tab PO Q6H PRN (Reason: pain) 3 Days Qty: 12 0RF Rx Instructions: DX: M54.5 methocarbamol 750 mg tablet 750 mg PO TID PRN (Reason: pain) Qty: 20 0RF ondansetron 4 mg tablet,disintegrating 4 mg PO Q6H PRN (Reason: nausea and vomiting) Qty: 12 0RF Print Language: Kinyarwanda Instructions: Arthralgia (ED), P.R.I.C.E. Treatment (ED) Additional Instructions: Call the office of your primary care doctor to arrange for follow-up within the above-stated timeframe. Your ED visit was focused on your acute issue and does not replace primary care. You should review your labs, imaging, and diagnoses from this ED visit with your primary care physician. There may be non-emergent/ incidental findings that need further evaluation. You should review your vital signs including blood pressure with your PCP. If you were prescribed medications you should discuss possible side-effects and drug interactions with your pharmacist. Call 911 or go to the nearest Emergency Department if you develop any new or worsening symptoms. Referrals: Stephanie Dumont NP [Primary Care Provider, Family Practice] - 1 week
== END 2024-11-11 09:28 | disposition home or self-care (01) ==
PROVIDERS: Emergency Provider Student in an Organized Health Care Education/Training Program; PCP Nurse Practitioner
DX: M25.571 Pain in right ankle and joints of right foot (principal); Z90.710 Acquired absence of both cervix and uterus; Z90.49 Acquired absence of other specified parts of digestive tract; F17.200 Nicotine dependence, unspecified, uncomplicated
CPT/HCPCS: 73610; 99283

== ENCOUNTER 2024-12-12 15:47 | Outpatient (OUT) | payer MEDICARE, SELFPAY ==
--- OUTSIDE RECORDS SUMMARY | 2024-12-06 13:45 | XMS_ITS | Encounter Summary ---
Author Organization [facility] Address [address] [place], [place] [id number] Care Team Providers Care Extrusion Press Adjuster Name Role Phone Stephanie Dumont Primary Care Provider Unavailabl e Source Comments In the event this information is protected by the Federal Confidentiality of Alcohol and Drug AbusePatient Records regulations: The Federal rules restrict any use of the information to criminally investigate or prosecute any alcohol or drug abuse patient.[facility] Reason for Visit * [place] Prior Authorization (Routine) - Authorized Specialty Diagnoses / Procedures Referred By Contac t Referred To Contact Diagnoses 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) Rinku Dupree MD [facility] [place] [address] Phone: tel: fax: Rinku Dupree MD [facility] [place] [address] Phone: tel: fax: Referral ID Status Reason Start Date Expiration Date V isits Requested Visits Authorized [id number] Authorized 12/04/2024 12/04/2025 1 24 Encounter Details Date Type Department Care Team (Latest Contact Info) Description 2024 1:45 PM EDT Infusion Center Hematology/Oncology [facility] [place] [address] 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) (Primary Dx) Social History Tobacco Use Types Packs/Day Years Used Date Smoking Tobacco: Light Smoker Cigarettes Passive Smoke Exposure: Past Smokeless Tobacco: Never Alcohol Use Standard Drinks/Week Comments No 0 (1 standard drink = 0.6 oz pur e alcohol) PHQ-2 Answer Date Recorded PHQ-2 score 0 04/18/2024 Area Deprivation Index Answer Date Andrea rded National Score (1-100), lower number is lower ri sk 95 12/15/2022 State Score (1-10), lower number is lower risk 9 12/15/2022 Data from: https://www.neighborhoodatlas.[facility]/. Last address used for calculation [address] 12/15/2022 Comments No Sex and Gender Information Value Date Recorded Sex Assigned at Not on file Legal Sex Female 1:30 PM EDT Gender Identity Not on file Sexual Orientation Not on file documented as of this encounter Last Filed Vital Signs Vital Sign Reading Time Taken Comments Blood Pressure 136/83 2024 1:40 PM EDT Pulse 67 2024 1:40 PM EDT Temperature 36.7 C (98.1 F) 2024 1:40 PM EDT Respiratory Rate 18 2024 1:40 PM EDT Oxygen Saturation 98% 2024 1:40 PM EDT Inhaled Oxygen Concentration - - Weight - - Height - - Body Mass Index - - documented in this encounter Functional Status * Are you deaf or do you have serious difficulty hearing? Answer Date of Assessment Author No 08/04/2022 2:24 PM Josi Berrios APRN.TURPENTINER * Are you blind or do you have serious difficulty seeing, even when wearing glasses? Answer Date of Assessment Author No 08/04/2022 2:24 PM Josi Berrios APRN.TURPENTINER * Do you have serious difficulty walking or climbing stairs? Answer Date of Assessment Author No 08/04/2022 2:24 PM Josi Berrios APRN.TURPENTINER * Do you have difficulty dressing or bathing? Answer Date of Assessment Author No 08/04/2022 2:24 PM Josi Berrios APRN.TURPENTINER * Because of a physical, mental, or emotional condition, do you have difficulty doing errands alone such as visiting a doctor's office or shopping? Answer Date of Assessment Author No 08/04/2022 2:24 PM Josi Berrios APRN.CNP documented as of this encounter Mental Status * Because of a physical, mental, or emotional condition, do you have serious difficulty concentrating, remembering, or making decisions? Answer Entry Date Author No 08/04/2022 2:24 PM Josi Berrios APRN.CNP documented in this encounter Plan of Treatment Upcoming Encounters Date Type Department Care Team (Latest Contact Info) Description 12/20/2024 1:30 PM EDT Office Visit [facility] [address] [place] [address] [place] [address] Lab & Aranesp 12/20/2024 1:45 PM EDT [facility]Oncology [facility] [place] [address] Lab & Aranesp 01/03/2025 1:45 PM EDT Office Visit [facility] [address] [place], [place] [address] [address] 6 week follow up, labs, B12 & Aranesp 01/03/2025 2:00 PM EDT Visit (SP) Office Hematology/Oncology [facility] [place] [address] Josi Burris APRN.TURPENTINER [address] [place] [address] [place] [address] 6 week follow up, labs, B12 & Aranesp 01/03/2025 2:30 PM EDT Infusion Center Hematology/Oncology [address] [place], [place] [address] [address] 6 week follow up, labs, B12 & Aranesp documented as of this encounter Visit Diagnoses Diagnosis 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)- Primary documented in this encounter Administered Medications Inactive Administered Medications - up to 3 most recent administrations Medication Order MAR Action Action Date Dose Rate Site Darbepoetin Arsalan In Polysorbat 200 mcg injection (ARANESP) 200 mcg, SUBCUTANEOUS, ONCE, 1 dose, On Mon12/06/24 at 1400, Protect from light REFRIGERATEIndications:Anemi a in stage 3b chronic kidney disease (HCC) Given 2024 1:48 PM EDT 200 mcg Arm, Left documented in this encounter Care Teams Extrusion Press Adjuster Relationship Specialty Start Date End Date Stephanie Dumont PCP - General 04/20/23 documented as of this encounter
--- OUTSIDE RECORDS SUMMARY | 2024-12-12 15:49 | XMS_ITS | Encounter Summary ---
Author Organization [facility] [employer] [facility] tem Address [id number] [address] [place] [address] Care Team Providers Care Route Inspector Name Role Phone Stephanie Dumont APRN-GUEST EXPERIENCE MANAGER Primary Care Provider Encounter Details Date Type Department Care Team (Late st Contact Info) Description 12/21/2022 Orders Only [facility] - ENT [address] [place] [address], [address] [place] [id number] [place] [address] [place] [address] [address] [place] [address] Social History Tobacco Use Types Packs/Day Years Used Date Smoking Tobacco: Every Day Cigarettes 0.5 15 Smokeless Tobacco: Never Alcohol Use Standard Drinks/Week Comments No 0 (1 standard drink = 0.6 oz pur e alcohol) Childcare Answer Date Recorded Childcare Unknown 12/19/2018 Employment Answer Date Recorded Employment Unknown 12/19/2018 Hunger Screening Answer Date Recorded Within the past 12 months we worried whether our food would run out before we got money to buy more. Never True 08/30/2022 Within the past 12 months th e food we bought just didn't last and we didn't have money to get more. Never True 08/30/2022 Purpose - Life Answer Date Recorded Purpose and direction in life Unknown Comments No Sex and Gender Information Value Date Recorded Sex Assigned at Not on file Legal Sex Female 11:37 AM EDT Gender Identity Not on file Sexual Orientation Not on file documented as of this encounter Plan of Treatment Not on file documented as of this encounter Procedures Procedure Name Priority Date/Time Associated Diagnosis Comments COMPREHENSIVE HEARING TEST Routine 12/21/2022 1:22 PM EDT documented in this encounter Results * Comprehensive hearing test (12/21/2022 1:22 PM EDT) Narrative MANUALLY TRANSCRIBED RESULTS - 12/21/2022 1:22 PM EDT Audiology evaluation was completed on 12/21/2022 us Derrick Shepherd MD AUDIOLOGY SERVICES ORDERABLE S Final Result MANUALLY TRANSCRIBED RESULTS documented in this encounter Visit Diagnoses Not on filedocumented in this encounter Care Teams Route Inspector Relationship Specialty Start Date End Date Stephnaie Dumont, MEDICARE BILLER-GUEST EXPERIENCE MANAGER PCP - General Nurse Practitioner 05/02/24 documented as of this encounter
--- OUTSIDE RECORDS SUMMARY | 2024-12-12 15:49 | XMS_ITS | Encounter Summary ---
Author Organization [facility] Address [address] [place], [place] [id number] Care Team Providers Care Software Administrator Name Role Phone Shaikh THEODORE Biswas Primary Care Provider [phone] Stephanie Dumont Primary Care Provider Unavailabl e Source Comments In the event this information is protected by the Federal Confidentiality of Alcohol and Drug AbusePatient Records regulations: The Federal rules restrict any use of the information to criminally investigate or prosecute any alcohol or drug abuse patient.[facility] Encounter Details Date Type Department Care Team (Latest Contact Info) Description 08/15/2022 H&P External-NonCCF Provider, External, PA-C Do not enter address information under generic External Provider. Social History Tobacco Use Types Packs/Day Years Used Date Smoking Tobacco: Light Smoker Cigarettes Passive Smoke Exposure: Past Smokeless Tobacco: Never Alcohol Use Standard Drinks/Week Comments No 0 (1 standard drink = 0.6 oz pur e alcohol) PHQ-2 Answer Date Recorded PHQ-2 score 0 05/12/2022 Area Deprivation Index Answer Date Andrea rded National Score (1-100), lower number is lower ri sk 92 07/24/2022 State Score (1-10), lower number is lower risk N ot on file 07/24/2022 Data from: https://www.neighborhoodatlas.medicine.[facility].edu/. Last address used for calculation [address] 07/24/2022 Comments No Sex and Gender Information Value Date Recorded Sex Assigned at Not on file Legal Sex Female 1:30 PM EDT Gender Identity Not on file Sexual Orientation Not on file documented as of this encounter Functional Status * Are you deaf or do you have serious difficulty hearing? Answer Date of Assessment Author No 08/04/2022 2:24 PM Josi Berrios, MIRIAM.MIDDLE STITCHER * Are you blind or do you have serious difficulty seeing, even when wearing glasses? Answer Date of Assessment Author No 08/04/2022 2:24 PM Josi Berrios, MIRIAM.MIDDLE STITCHER * Do you have serious difficulty walking or climbing stairs? Answer Date of Assessment Author No 08/04/2022 2:24 PM Josi Berrios APRN.MIDDLE STITCHER * Do you have difficulty dressing or bathing? Answer Date of Assessment Author No 08/04/2022 2:24 PM Josi Berrios, MIRIAM.MIDDLE STITCHER * Because of a physical, mental, or emotional condition, do you have difficulty doing errands alone such as visiting a doctor's office or shopping? Answer Date of Assessment Author No 08/04/2022 2:24 PM Josi Berrios, MIRIAM.MIDDLE STITCHER documented as of this encounter Mental Status * Because of a physical, mental, or emotional condition, do you have serious difficulty concentrating, remembering, or making decisions? Answer Entry Date Author No 08/04/2022 2:24 PM Josi Berrios, MIRIAM.MIDDLE STITCHER documented in this encounter Plan of Treatment Upcoming Encounters Date Type Department Care Team (Latest Contact Info) Description 12/20/2024 1:30 PM EDT Office Visit [facility] [address] [place] [address] Lab & Aranesp 12/20/2024 1:45 PM EDT [facility] Hematology/Oncology [address] [place] [address] Lab & Aranesp 01/03/2025 1:45 PM EDT Office Visit [facility] [address] [place] [address] 6 week follow up, labs, B12 & Aranesp 01/03/2025 2:00 PM EDT Visit (SP) Office Hematology/Oncology [address] [place] [address] Josi Burris APRN.MIDDLE STITCHER [address] [facility] [place] [address] 6 week follow up, labs, B12 & Aranesp 01/03/2025 2:30 PM EDT [facility] Hematology/Oncology [address] [facility] [place] [address] 6 week follow up, labs, B12 & Aranesp documented as of this encounter Visit Diagnoses Not on filedocumented in this encounter Care Teams Software Administrator Relationship Specialty Start Date End Date Shaikh Biswas MD [address] [place] [address] PCP - General Primary Care 09/15/22 12/18/22 Stephanie Dumont [address] [place] [address] PCP - General 04/20/23 documented as of this encounter
--- OUTSIDE RECORDS SUMMARY | 2024-12-12 15:49 | XMS_ITS | Encounter Summary ---
Author Organization [facility] Address [address] [place] [address] Care Team Providers Care Felt Washing Machine Tender Name Role Phone Stephanie Dumont Primary Care Provider Unavailabl e Source Comments In the event this information is protected by the Federal Confidentiality of Alcohol and Drug AbusePatient Records regulations: The Federal rules restrict any use of the information to criminally investigate or prosecute any alcohol or drug abuse patient.[facility] Reason for Visit * Reason Onset Date Comments Refill Request 11/05/2024 Encounter Details Date Type Department Care Team (Late st Contact Info) Description 11/05/2024 Refill [facility] [address] [place] [address] Rinku Dupree MD [address] [place] [address] [place] [address] Refill Request Social History Tobacco Use Types Packs/Day Years [...] is lower risk 9 12/15/2022 Data from: https://www.[email or web address]/. Last address used for calculation [...] of Assessment Author No 08/04/2022 2:24 PM EST Jayden Connelly APRN.INDUSTRIAL ENGINEER * Are you blind or do you have serious difficulty seeing, even when wearing glasses? Answer Date of Assessment Author No 08/04/2022 2:24 PM EST Jayden Conenlly APRN.CNP * Do you have serious difficulty walking or climbing stairs? Answer Date of Assessment Author No 08/04/2022 2:24 PM EST Jayden Connelly APRN.CNP * Do you have difficulty dressing or bathing? Answer Date of Assessment Author No 08/04/2022 2:24 PM EST Jayden Connelly APRN.INDUSTRIAL ENGINEER * Because of a physical, mental, or emotional condition, do you have difficulty doing errands alone such as visiting a doctor's office or shopping? Answer Date of Assessment Author No 08/04/2022 2:24 PM EST Jayden Connelly APRN.CNP documented as of this encounter Mental Status * Because of a physical, mental, or emotional condition, do you have serious difficulty concentrating, remembering, or making decisions? Answer Entry Date Author No 08/04/2022 2:24 PM Jayden Berrios APRN.CNP documented in this encounter Miscellaneous Notes * Telephone Encounter - Jayden Connelly APRN.CNP - 11/05/2024 12:12 PM EDT The following approved medication requests have been transmitted electronically. Requested Prescriptions Signed Prescriptions Disp Refills pilocarpine (SALAGEN) 5 mg tablet 90 tablet 3 Sig: Take 1 tablet by mouth three times a day. Authorizing Provider: JAYDEN CONNELLY APRN.CNP documented in this encounter Plan of Treatment Upcoming Encounters Date Type Department Care Team (Latest Contact Info) Description 12/20/2024 1:30 PM EDT Office Visit [facility] [address] [place] [address] Lab & Aranesp 12/20/2024 1:45 PM EDT [facility] Hematology/Oncology [address] [place] [address] [place] [address] Lab & Aranesp 01/03/2025 1:45 PM EDT Office Visit [facility] [address] [address] [place] [address] 6 week follow up, labs, B12 & Aranesp 01/03/2025 2:00 PM EDT Visit (SP) Office Hematology/Oncology [address] [place] [address] Jayden Connelly, MIRIAM.INDUSTRIAL ENGINEER [address] [place] [address] 6 week follow up, labs, B12 & Aranesp 01/03/2025 2:30 PM EDT Infusion Center Hematology/Oncology [address] [place] [address] 6 week follow up, labs, B12 & Aranesp documented as of this encounter Visit Diagnoses Not on filedocumented in this encounter Care Teams Felt Washing Machine Tender Relationship Specialty Start Date End Date Stephanie Dumont PCP - General 04/20/23 documented as of this encounter
--- OUTSIDE RECORDS SUMMARY | 2024-12-12 15:49 | XMS_ITS | Encounter Summary ---
Author Organization [facility] Address [address] [place] [address] Care Team Providers Care Sales Account Leader Name Role Phone Stephanie Dumont SIDING COREBOARD INSPECTOR Unavailable [phone] Unallocated, Noms Provider Primary Care Provi gabriela Wilfred Polanco MD Primary Care Provider [phone] Wilfred Polanco MD Primary Care Provider [phone] Stephanie Dumont SIDING COREBOARD INSPECTOR Unavailable [phone] Wilfred Polanco MD Primary Care Provider [phone] Encounter Details Date Type Department Care Team (Late Contact Info) Description 06/08/2023 Orders Only [facility] [address] [place] [address] Stephanie Dumont, SIDING COREBOARD INSPECTOR [address] [place] [address] Social History Tobacco Use Types Packs/Day Years Used Date Smoking Tobacco: Every Day Cigarettes 0.3 50 Passive Smoke Exposure: Past Smokeless Tobacco: Never Alcohol Use Standard Drinks/Week Comments Never 0 (1 standard drink = 0.6 oz pur e alcohol) Comments No Sex and Gender Information Value Date Recorded Sex Assigned at Not on file Legal Sex Female 7:29 PM EDT Gender Identity Not on file Sexual Orientation Not on file documented as of this encounter Plan of Treatment Upcoming Encounters Date Type Department Care Team ([facility] Contact Info) Description 12/25/2024 11:00 AM EDT Office Visit [facility] [address] [place] [address] Stephanie Dumont NP [address] [place] [address] 04/02/2025 11:10 AM EDT Office Visit [facility] [address] [place] [address] Nadia Mercado MD [address] [place] [address] documented as of this encounter Visit Diagnoses Not on filedocumented in this encounter Care Teams Sales Account Leader Relationship Specialty Start Date End Date Unallocated, Noms MD Angela [address] [place] [address] PCP - General Family Medicine 06/07/23 07/16/23 Wilfred Polanco MD [address] [facility] [place] [address] PCP - General Family Medicine 07/17/23 08/16/23 Wilfred Polanco MD [address] [place] [address] PCP - General Family Medicine 08/17/23 04/23/24 Stephanie Dumont NP [address] [place] [address] PCP - [facility] 10/09/23 12/07/70 Wilfred Polanco MD [address] [place] [address] PCP - General Family Medicine 05/13/24 Stephanie Dumont NP [address] [place] [address] Nurse Practitioner Family Medicine 04/09/23 documented as of this encounter
--- OUTSIDE RECORDS SUMMARY | 2024-12-12 15:49 | XMS_ITS | Encounter Summary ---
Author Organization [facility] Address [address] [facility] [place] [address] Care Team Providers Care Directory Compiler Name Role Phone Stephanie Dumnot ASBESTOS REMOVAL SUPERVISOR Unavailable [phone] Stephanie Dumont ASBESTOS REMOVAL SUPERVISOR Unavailable [phone] Wilfred Polanco MD Primary Care Provider Encounter Details Date Type Department Care Team ([facility] Contact Info) Description 05/06/2024 Orders Only [facility] [address] [place] [address] Stephanie Dumont, JORDI [address] [place] [address] Social History Tobacco Use Types Packs/Day Years [...] Upcoming Encounters Date Type Department Care Team ([facility] Contact Info) Description 12/25/2024 11:00 AM EDT Office Visit [facility] [address] [place] [address] Stephanie Dumont, JORDI [address] [place] [address] 04/02/2025 11:10 AM EDT Office Visit [facility] [address] [facility] [address] [place] [address] Nadia Mercado MD [address] [facility] [address] [place] [address] documented as of this encounter Procedures Procedure Name Priority Date/Time Associated Diagnosis Comments BIOPSY THYROID Routine 05/06/2024 10:28 AM EDT documented in this encounter Results * Biopsy thyroid (05/06/2024 10:28 AM EDT) us Stephanie Dumont ASBESTOS REMOVAL SUPERVISOR IN CLINIC/BEDSIDE ORDERABLES Fi nal Result documented in this encounter Visit Diagnoses Not on filedocumented in this encounter Care Teams Directory Compiler Relationship Specialty Start Date End Date Stephanie Dumont NP [address] [place] [address] PCP - [facility] 10/09/23 12/07/70 Wilfred Polanco MD [address] [place] [address] PCP - General Family Medicine 05/13/24 Stephanie Dumont NP [address] [place] [address] Nurse Practitioner Family Medicine 04/09/23 documented as of this encounter
--- OUTSIDE RECORDS SUMMARY | 2024-12-12 15:49 | XMS_ITS | Clinical Summary ---
Author Organization [facility] Address [id number] [address] [place] [address] Care Team Providers Care Painter Drum Name Role Phone Stephanie Dumont APRN-DUST BRUSH ASSEMBLER Primary Care Provider Allergies Active Allergy Reactions Criticality Noted Date Comments Tetanus Vaccines And Toxoid Itching 01/06/20 17 Vancomycin Itching 01/05/2017 Burning sensation Medications benzonatate (TESSALON PERLES) 100 mg capsule Take 1 capsule (100 mg total) by mouth every 6 (six) hours as needed. 02/11/2022 Active fostamatinib 100 mg tablet Take 100 mg by mouth in the morning and 100 mg before bedtime. 04/02/2022 Active hydroCHLOROthia zide (HYDRODIURIL) 25 mg tablet Take 1 tablet (25 mg total) by mouth daily. 04/16/2022 Active losartan (COZAAR) 25 mg tablet Take 2 tablets (50 mg total) by mouth in the morning. 06/15/2022 Active pilocarpine (SALAGEN) 5 mg tablet Take 1 tablet (5 mg total) by mouth as needed. 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 Disease of thyroid gland 06/28/2022 HL (hearing loss) 06/28/2022 Overview (06/28/2022): left ear implant Platelet disorder 06/28/2022 Overview (06/28/2022): pt has low platelet count, may be related to lupus Tobacco dependence 06/28/2022 Dry mouth 01/05/2017 Lupus 01/05/2017 Resolved Problems Problem Noted Date Diagnosed Date Resolved Date Oral thrush 01/05/2017 06/29/2022 Oral thrush 11/10/2016 11/10/2016 Encounters Date Type Department Care Team Description 09/11/2024 Telephone [facility] [address] [place] [address] Nina Leon, [facility] from Last 3 Months Family History Medical History Relation Name Comments Liver cancer Brother Bone cancer Father Cancer Father Diabetes Mother Hypertension Mother Pancreatic cancer Niece 1 Pancreatic cancer Niece 2 Colon cancer Niece 3 Breast cancer Sister Relation Name Status Comments Brother Father Mother Niece 1 Niece 2 Niece 3 Alive Sister Social History Tobacco Use Types Packs/Day Years Used Date Smoking Tobacco: Every Day Cigarettes 0.5 15 Smokeless Tobacco: Never Tobacco Cessation:Ready to Q uit: Not Asked; Counseling Given: Not Answered Alcohol Use Standard Drinks/Week Comments No 0 [...] on file Sexual Orientation Not on file Last Filed Vital Signs Vital Sign Reading Time Taken Comments Blood Pressure 118/78 08/30/2022 3:05 PM EST Pulse 69 07/25/2022 2:11 PM EST Temperature 36.6 C (97.9 F) 12/21/2022 2:55 PM EDT Respiratory Rate 22 07/25/2022 2:11 PM EST Oxygen Saturation 98% 07/25/2022 2:11 PM EST Inhaled Oxygen Concentration - - Weight 83.5 kg (184 lb) 07/18/2024 9:12 AM EST Height 160 cm (5' 3 ) 05/09/2024 8:44 AM EDT Body Mass Index 32.59 05/09/2024 8:44 AM EDT Plan of Treatment Health Maintenance Due Date Last Done Comments Tobacco Counseling 1950 Depression Screening 1962 Tobacco Screening 1962 Adult BMI Follow Up Plan 1968 DTaP,Tdap and Td Vaccines (1 - Tdap) 1969 Zoster (Shingles) Vaccine (1 of 2) 2000 Fall Risk Screening 12/07/2015 COVID-19 Vaccine (2023-2 5 season) 2024 05/17/2024, 05/26/2023, 02/05/2022, Additional history exists Influenza Vaccine 03/10/2025 04/02/2024, , 04/20/2022, Additional history exists Adult BMI Screening 07/18/2025 07/18/2024 Colonoscopy 07/25/2027 07/25/2022, 07/25/2022 Medical Devices Not on file Procedures Procedure Name Priority Date/Time Associated Diagnosis Comments COLONOSCOPY 07/25/2022 12:43 PM EST from Last 3 Months or Most Recently Relevant to Health Maintenance Results * Colonoscopy (07/25/2022 12:43 PM EST) 07/25/2022 12:4 3 PM EST Narrative PM CARDIOVASCULAR - 07/25/2022 1:45 PM EST [facility] Patient Name: Andrei Fish Procedure Date No Time: 07/25/2022 CSN : [id number] Date of : 1950 Admit Type: Outpatient Age: 71 Room: [place] [address] Gender: Female Note Status: Finalized Attending MD: Luz Marina Jacobson , Procedure: Colonoscopy Indications: Colon cancer screening in patient at increased risk: Family history of colorectal cancer in multiple 2nd degree relatives Providers: Luz Marina Jacobson Referring MD: Luz Marina Jacobson Medicines: Monitored Anesthesia Care Complications: No immediate complications. Procedure: After I obtained informed consent, the scope was passed under direct vision. Throughout the procedure, the patient's blood pressure, pulse, and oxygen saturations were monitored continuously. The [facility] PCF-H190DL # [id number] PEDIATRIC COLONOSCOPE was introduced through the anus and advanced to the cecum, identified by transillumination. The colonoscopy was somewhat difficult due to significant looping. The patient tolerated the procedure well. Findings: Four flat polyps were found in the rectum, transverse colon and hepatic flexure. The polyps were less than 5 mm in size. These were biopsied with a hot snare for histology. Estimated blood loss was minimal. Additional multiple hyperplastic polyps in rectum. The exam was otherwise without abnormality. Estimated Blood Loss: Estimated blood loss: none. Impression: - Four less than 5 mm polyps in the rectum, in the transverse colon and at the hepatic flexure. Biopsied. - The examination was otherwise normal. Recommendation: - Await pathology results. - Repeat colonoscopy in 5 years for screening purposes. Procedure Code(s): --- Professional --- 12772, Colonoscopy, flexible; with removal of tumor(s), polyp(s), or other lesion(s) by snare technique Diagnosis Code(s): --- Professional --- Z12.11, Encounter for screening for malignant neoplasm of colon CPT copyright 2020 [employer]. All rights reserved. The codes documented in this report are preliminary and upon transportation maintenance worker review may be revised to meet current compliance requirements. MD Luz Marina Valenzuela, 07/25/2022 1:45:42 PM This report has been signed electronically.Luz Marina Jacobson Number of Addenda: 0 Note Initiated On: 07/25/2022 12:43 PM Procedure Note Luz Marina Jacobson MD - 07/25/2022 [facility] Patient Name: Andrei Fish Procedure Date No Time: 07/25/2022 CSN : [id number] Date of : 1950 Admit Type: Outpatient Age: 71 Room: [place] [address] Gender: Female Note Status: Finalized Attending MD: Luz Marina Jacobson , Procedure: Colonoscopy Indications: Colon cancer screening in patient at increasedrisk: Family history of colorectal cancer in multiple 2nd degree relatives Providers: Luz Marina Jacobson Referring MD: LuzM arina Jacobson Medicines: Monitored Anesthesia Care Complications: No immediate complications. Procedure: After I obtained informed consent, the scope was passed under direct vision. Throughout theprocedure, the patient's blood pressure, pulse, and oxygen saturations were monitored continuously. [facility] PCF-H[facility]DL # [id number] PEDIATRIC COLONOSCOPE was introduced through the anus and advanced to thececum, identified by transillumination. The colonoscopywas somewhat difficult due to significant looping. The patient tolerated the procedure well. Findings: Four flat polyps were found in the rectum, transverse colon andhepatic flexure. The polyps were less than 5 mm in size. These were biopsied with a hot snare for histology. Estimated blood loss was minimal. Additional multiple hyperplastic polyps in rectum. The exam was otherwise without abnormality. Estimated Blood Loss: Estimated blood loss: none. Impression: - Four less than 5 mm polyps in the rectum, in the transverse colon and at the hepatic flexure.Biopsied. - The examination was otherwise normal. Recommendation: - Await pathology results. - Repeat colonoscopy in 5 years for screeningpurposes. Procedure Code(s): --- Professional --- 53714, Colonoscopy, flexible; with removal of tumor(s), polyp(s), or other lesion(s) by snare technique Diagnosis Code(s): --- Professional --- Z12.11, Encounter for screening for malignant neoplasm of colon CPT copyright 2020 [employer]. All rights reserved. The codes documented in this report are preliminary and upon transportation maintenance worker reviewmay be revised to meet current compliance requirements. MD Luz Marina Valenzuela, 07/25/2022 1:45:42 PM This report has been signed electronically.Luz Marina Jacobson Number of Addenda: 0 Note Initiated On: 07/25/2022 12:43 PM Luz Marina Jacobson MD GI PROCEDURE ORDERABLES Fi nal Result PM CARDIOVASCULAR from Last 3 Months or Most Recently Relevant to Health Maintenance Insurance [facility] [employer] [place] [id number] Care Teams Painter Drum Relationship Specialty Start Date End Date Stephanie Dumont, INFORMATION TECHNOLOGY AUDIT MANAGER-DUST BRUSH ASSEMBLER PCP - General Nurse Practitioner 05/02/24
--- OUTSIDE RECORDS SUMMARY | 2024-12-12 15:49 | XMS_ITS | Encounter Summary ---
Author Organization [facility] Address [address] [place] [address] Care Team Providers Care Receiving Associate Store Name Role Phone Stephanie Dumont SPECIAL EFFECTS TECHNICIAN Unavailable [phone] Unallocated, Noms Provider Primary Care Provi gabriela Wilfred Polanco MD Primary Care Provider [phone] Wilfred Polanco MD Primary Care Provider [phone] Stephanie Dumont SPECIAL EFFECTS TECHNICIAN Unavailable [phone] Wilfred Polanco MD Primary Care Provider [phone] Encounter Details Date Type Department Care Team (Late Contact Info) Description 07/09/2023 Abstract [facility] [address] [place] [phone] Stephanie Dumont, SPECIAL EFFECTS TECHNICIAN [address] [place] [address] Social History Tobacco Use Types Packs/Day Years Used Date Smoking Tobacco: Every Day Cigarettes 0.3 50 Passive Smoke Exposure: Past Smokeless Tobacco: Never Tobacco Cessation:Ready to Q uit: Not Asked; Counseling Given: Not Answered Alcohol Use Standard Drinks/Week Comments Never 0 (1 standard drink = 0.6 oz pur e alcohol) Comments No Sex and Gender Information Value Date Recorded Sex Assigned at Not on file Legal Sex Female 7:29 PM EDT Gender Identity Not on file Sexual Orientation Not on file documented as of this encounter Plan of Treatment Upcoming Encounters Date Type Department Care Team ([facility] Contact Info) Description 12/25/2024 11:00 AM EDT Office Visit [facility] [address] [place] [address] Stephanie Dumont NP [address] [place] [address] 04/02/2025 11:10 AM EDT Office Visit [facility] [address] [place] [address] Nadia Mercado MD [address] [place] [address] documented as of this encounter Visit Diagnoses Not on filedocumented in this encounter Care Teams Receiving Associate Store Relationship Specialty Start Date End Date Unallocated, Noms MD Angela [address] [place] [address] PCP - General Family Medicine 06/07/23 07/16/23 Wilfred Polanco MD [address] [place] [address] PCP - General Family Medicine 07/17/23 08/16/23 Wilfred Polanco MD [address] [place] [address] PCP - General Family Medicine 08/17/23 04/23/24 Stephanie Dumont NP [address] [place] [address] PCP - [facility] 10/09/23 12/07/70 Wilfred Polanco MD [address] [place] [address] PCP - General Family Medicine 05/13/24 Stephanie Dumont NP [address] [place] [address] Nurse Practitioner Family Medicine 04/09/23 documented as of this encounter
--- OUTSIDE RECORDS SUMMARY | 2024-12-12 15:49 | XMS_ITS | Encounter Summary ---
Author Organization [facility] [address] [facility] [place] [address] Care Team Providers Care Nuclear Engineer Name Role Phone Stephanie Dumont SENIOR WATER/WASTEWATER ENGINEER Unavailable [phone] Stephanie Dumont SENIOR WATER/WASTEWATER ENGINEER Unavailable [phone] Wilfred Polanco MD Primary Care Provider [phone] Encounter Details Date Type Department Care Team (Late st Contact Info) Description 05/14/2024 Orders Only [facility] [address] [place] [address] Stephanie Dumont SENIOR WATER/WASTEWATER ENGINEER [address] [place] [address] Social History Tobacco Use Types Packs/Day Years Used Date Smoking Tobacco: Every Day Cigarettes 0.3 50 Passive Smoke Exposure: Past Smokeless Tobacco: Never Alcohol Use Standard Drinks/Week Comments Never 0 (1 standard drink = 0.6 oz pur e alcohol) PHQ-2 Answer Date Recorded Patient Health Questionnaire-2 Score 0 05/14/2024 Comments No Sex and Gender Information Value Date Recorded Sex Assigned at Not on file Legal Sex Female 7:29 PM EDT Gender Identity Not on file Sexual Orientation Not on file documented as of this encounter Functional Status * Over the past 2 weeks, how often have you been bothered by any of the following problems? Question Answer Date of Assessment Author Little interest or pleasure in doing things Not at all 05/14/2024 10:42 AM MICHELL MURILLO Feeling down, depressed, or hopeless Not at all 05/14/2024 10:42 AM MICHELL MURILLO Patient Health Questionnaire -2 Score 0 05/14/2024 10:42 AM MICHELL MURILLO * Question Answer Date of Assessment Author Trouble falling or staying asleep, or sleeping too much Not at all 05/14/2024 10:42 AM FREDDY B[place]AM Feeling tired or having little energy Several days 05/14/2024 10:42 AM MICHELL MURILLO Poor appetite or overeating Several days 05/14/2024 10 :42 AM FREDDY MURILLO Feeling bad about yourself - or that you are a failure or have let yourself or your family down Not at all 05/14/2024 10:42 AM MICHELL MURILLO Trouble concentrating on things, such as reading the newspaper or watching television Not at all 05/14/2024 10:42 AM MICHELL MURILLO Moving or speaking so slowly that other people could have noticed? Or the opposite - being so fidgety or restless that you have been moving around a lot more than usual. Not at all 05/14/2024 10:42 AM FREDDY BENNETT Thoughts that you would be better off or hurting yourself in some way Not at all 05/14/2024 10:42 AM MAURIZIO MURILLO Patient Health Questionnaire-9 Score 2 05/14/2024 10:42 AM LEONA MURILLO * Geriatric Depression Scale (Short Version) Question Answer Date of Assessment Author Are you basically satisfied with your life? Yes 05/14/2024 10:45 AM MICHELL MURILLO Have you dropped many of you r activities and interests? No 05/14/2024 10:45 AM FREDDY MURILLO Do you feel that your life i s empty? No 05/14/2024 10:45 AM MICHELL MURILLO Do you often get bored? No 05/14/2024 10:45 AM FREDDY MURILLO Are you in good spirits most of the time? Yes 05/14/2024 10:45 AM MICHELL MURILLO Are you afraid that somethin g bad is going to happen to you? No 05/14/2024 10:45 AM JILLIAN MURILLOA Do you feel happy most of the time? Yes 05/14 10:45 AM EST JILLIAN HAMILTONA Do you often feel helpless? No 05/14/2024 10 :45 AM EST JILLIAN HAMILTONA Do you prefer to stay at lara e, rather than going out and doing new things? No 05/14/2024 10:45 AM MICHELL MURILLO VELAZQUEZ Do you feel you have more pr oblems with memory than most? No 05/14/2024 10:45 AM EST MILANA HAMILTON Do you think it is wonderful to be alive now? Yes 05/14/2024 10:45 AM MICHELL MURILLO VELAZQUEZ Do you feel pretty worthless the way you are now? No 05/14/2024 10:45 AM MICHELL MURILLO VELAZQUEZ Do you feel full of energy? Yes 05/14/2024 10 :45 AM FREDDY MURILLO Do you feel that your situat ion is hopeless? No 05/14/2024 10:45 AM MICHELL MURILLO Do you think that most peopl e are better off than you are? No 05/14/2024 10:45 AM FREDDY MURILLO Geriatric Depression Scale ( Short Version) Total 0 05/14/2024 10:45 AM MICHELL MURILLO documented as of this encounter Plan of Treatment Upcoming Encounters Date Type Department Care Team (Late st Contact Info) Description 12/25/2024 11:00 AM EDT Office Visit [facility] [address] [address] Stephanie Dumont NP [address] [place] [address] 04/02/2025 11:10 AM EDT Office Visit [facility] [address] [facility] [address] [place] [id number] Nadia Mercado MD [address] [facility] [address] [place] [address] documented as of this encounter Procedures Procedure Name Priority Date/Time Associated Diagnosis Comments XR DEXA AXIAL SKELETON* Routine 05/14/2024 1:32 PM EST documented in this encounter Results * XR DEXA AXIAL SKELETON* (05/14/2024 1:32 PM EST) Anatomical Region Laterality Modality Radiographic Maryam ging Stephanie Dumont SENIOR WATER/WASTEWATER ENGINEER IMG XR PROCEDURES Final Result documented in this encounter Visit Diagnoses Not on filedocumented in this encounter Additional Health Concerns Assessment Noted Time PHQ-9 Depression Total Score: 2 05/14/20 10:42 AM EST documented as of this encounter Care Teams Nuclear Engineer Relationship Specialty Start Date End Date Stephanie Dumont NP [address] [place] [phone] PCP - [facility] 10/09/23 12/07/70 Wilfred Polanco MD [address] [place] [phone] PCP - General Family Medicine 05/13/24 Stephanie Dumont NP [address] [place] [phone] Nurse Practitioner Family Medicine 04/09/23 documented as of this encounter
--- OUTSIDE RECORDS SUMMARY | 2024-12-12 15:49 | XMS_ITS | Clinical Summary ---
Author Organization [facility] Address [address] [place] [address] Care Team Providers Care Caul Fat Puller Name Role Phone Stephanie Dumont POWER NUT RUNNER OPERATOR Unavailable [phone] Stephanie Dumont NP Unavailable [phone] Wilfred Polanco MD Primary Care Provider [phone] Allergies Active Allergy Reactions Criticality Noted Date Comments Tebxerg-Jvetjt-Uuouq Pertussis Rash Low 06/06/2023 Vancomycin Other 06/06/2023 States had burning sensation t/o entire body. (Infectious disease) States medication was given too fast. Medications hydroCHLOROthia zide (HYDRODiuril) 25 MG tablet Take 25 mg by mouth in the morning. 01/26/2023 Active losartan (Cozaar) 25 MG tablet Take 50 mg by mouth at bedtime 06/15/2022 Active pilocarpine (Salagen) 5 MG tablet Take 1 tablet by mouth in the morning and 1 tablet in the evening and 1 tablet before bedtime. 01/27/2023 Active spironolactone (Aldactone) 25 MG tablet Take 25 mg by mouth in the morning. 09/07/2022 Active benzonatate (Tessalon) 100 MG capsule Take 100 mg by mouth every 6 (six) hours if needed 07/11/2024 Active ergocalciferol (Vitamin D-2) 1.25 MG (48113 UT) capsule Take 50,000 Units by mouth 1 (one) time per week Active Fostamatinib Disodium (Tavalisse) 100 MG tablet Take 100 mg by mouth in the morning and 100 mg before bedtime. Active metoprolol succinate XL (Toprol-XL) 25 MG 24 hr tabletIndicatio ns:Coronary artery disease involving elem coronary artery of elem heart without angina pectoris (CMS/HCC) TAKE 0.5 TABLETS (12.5 MG) BY MOUTH DAILY DO NOT CRUSH OR CHEW. 45 tablet 1 10/07/2024 Active cyclobenzaprine (Flexeril) 5 MG tablet Take 5 mg by mouth at bedtime 10/11/2024 Active naproxen (Naprosyn) 500 MG tablet Take 500 mg by mouth 2 (two) times a day as needed 11/11/2024 Active Active Problems Problem Noted Date Diagnosed Date Chronic kidney disease, stage 3a (HCC) 5 Assessment & Plan (08/15/2024 6:48 AM EST): Continue with Nephrology dr ceja Keep BP at goal Family history of cancer 08/15/2024 Assessment & Plan (08/15/2024 11:15 AM EST): Sister: breast Nieces: pancreatic: X3 Father: bone cancer Niece: colon cancer Encounter for subsequent [facility] wellness visit (AWV) in Medicare patient 05/14/2024 Assessment & Plan (05/14/2024 6:24 AM EST): I have reviewed Ht/Wt/BMI, I have reviewed recommended vaccines for patient's age, as well as all recommended screenings I have reviewed available care everywhere notes as well. I have recommended eating a balanced diet, as well as activity as chronic conditions allow It is recommended that the patient have a yearly eye exam, as well as twice a year dental exams Fu in this office for wellness on a yearly basis Multiple lung nodules on CT 05/07/2024 Assessment & Plan (08/15/2024 10:59 AM EST): Is due for repeat CT scan in 11/2024 Diarrhea 04/24/2024 Assessment & Plan (04/24/2024 12:01 PM EDT): No fever, blood or abd pain It is intermittent Will monitor at this time Pre-diabetes 04/05/2024 Assessment & Plan (08/15/2024 6:50 AM EST): No current meds Watch for increase in thirst, urination, or appetite. Inspect feet frequently monitoring for open wounds , and also recommend yearly eye exam. Pt should attempt to remain as physically active as chronic conditions allow, as well as trying to follow a diet low in carbohydrates, and simple sugars. A1c 6.3 (04/02) Assessment & Plan (05/14/2024 6:26 AM EST): Check blood sugars daily, notify if <70 or >200. Take medications (pills or insulin) as directed. Monitor for s/s of hypoglycemia (sweaty, dizziness, nausea, vomiting, or shakiness). Watch for increase in thirst, urination, or appetite. Inspect feet frequently monitoring for open wounds , and also recommend yearly eye exam. Pt should attempt to remain as physically active as chronic conditions allow, as well as trying to follow a diet low in carbohydrates, and simple sugars. UTD on A1c test Assessment & Plan (04/24/2024 12:00 PM EDT): Limit carbs/ sugary foods/drinks Will hold on meds at this time Monitor A1c in 3 months Elevated glucose level 04/04/2024 Assessment & Plan (04/04/2024 10:36 AM EDT): Check A1c Family hx DM, Encounter for screening mamm ogram for malignant neoplasm of breast 04/04/2024 Other chest pain 04/04/2024 Assessment & Plan (04/04/2024 10:36 AM EDT): Check stress test Posterior left knee pain 04/04/2024 Assessment & Plan (04/04/2024 10:37 AM EDT): Will refer to ortho, I am unclear if this is deg related to trauma Other differentials: lumbar etiology , or PAD PAH (pulmonary artery hypertension) 03/27/2024 Assessment & Plan (08/15/2024 6:47 AM EST): Per ECHO Elevated pressures, has hx of ADALBERTO, not treated Assessment & Plan (03/27/2024 1:08 PM EDT): Per ECHO Elevated pressures, has hx of ADALBERTO, not treated 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 deficien cy 03/05/2024 Thyroid nodule 02/26/2024 Overview (04/04/2024): 04/03/24 Thyroid nodule X2 right lobe, see report Assessment & Plan (04/24/2024 12:00 PM EDT): Biopsy resolved, bethesda-nondiagnostic, rare benign thyroid follicular cells Assessment & Plan (03/04/2024 12:46 PM EDT): Thyroid US Coronary artery disease invo lving elem coronary artery of elem heart 02/26/2024 Assessment & Plan (08/15/2024 6:46 AM EST): Takes b clarke Assessment & Plan (05/14/2024 11:57 AM EST): Stress test was negative Assessment & Plan (04/24/2024 11:59 AM EDT): No acute chest pain See ECHO results Has stress test next week Cont b clarke Assessment & Plan (04/04/2024 10:35 AM EDT): Reviewed ECHO Will order stress test Assessment & Plan (03/04/2024 12:46 PM EDT): Strong family hx of CAD Vague c.o pressure chest from time to time Will order ECHO Add Toprol XL 12.5mg daily Await her to let me know which [facility] referral Calcification of aortic valve 02/26/2024 Assessment & Plan (03/04/2024 12:44 PM EDT): Per CT chest, will get ECHO Systemic lupus erythematosus, unspecified 2023 Assessment & Plan (08/15/2024 6:49 AM EST): No current treatment Assessment & Plan (02/12/2024 7:23 AM EDT): Continue fu Lumbar back pain 02/12/2024 Assessment & Plan (02/12/2024 2:19 PM EDT): Will send to ER, suspect compression fracture to spine Will await those results Other forms of systemic lupus erythematosus 11/08 Other fatigue 11/28/2023 Weakness of both legs 11/28/2023 Assessment & Plan (11/28/2023 1:42 PM EDT): No acute findings on PE Recommend going to ER for evaluation Will proceed to [facility] Hyperkalemia with normal acid-base balance 11/26 Assessment & Plan (11/28/2023 1:43 PM EDT): Initially was going to have her recheck this, however we will send to [facility] ER for evaluation Cholesteatoma of left ear 11/14/2023 Claudication of both lower extremities Assessment & Plan (02/12/2024 2:22 PM EDT): TIMA's with segmental pressures Assessment & Plan (11/28/2023 1:42 PM EDT): Could also be the cause of bilat leg heaviness or weakness PAD (peripheral artery disease) 06/08/2023 Assessment & Plan (02/12/2024 2:22 PM EDT): TIMA's with segmental pressures at [facility] Age-related osteoporosis wit hout current pathological fracture 06/06/2023 Overview (05/14/2024): DEXA scan 05/24/2023: -2.9, osteoporosis Assessment & Plan (06/06/2023 2:16 PM EST): Reviewed DEXA Will trial fosamax, reviewed side effects Recommend OTC calcium/vit d supplement as well Ruptured ear drum, left 06/06/2023 Overview (06/06/2023): Has been chronic, decreased hearing Would like to see Dr Mercado Referral completed Leg pain, bilateral 06/06/2023 Assessment & Plan (06/08/2023 6:28 AM EST): Has pending labs, however consider PAD as possiblity as well may need TIMA's Will await results, does have family hx of PAD Reviewed labs on 06/08/23, no etiology to suggest leg pain and symptoms are coming from elytes or anemia Will order TIMA's and suspect PAD/claudication as the cause Left wrist pain 06/06/2023 Assessment & Plan (06/06/2023 2:23 PM EST): May be over use from thanksgiving or temp change Trial a soft wrist splint a few days and if not better contact office Obesity (BMI 30-39.9) 06/06/2023 Assessment & Plan (08/15/2024 6:48 AM EST): Discussed with patient their BMI (actual, verses recommended). We have also discussed lifestyle modifications: attempts to perform physical activity as chronic conditions allow, also to monitor dietary intake: increasing protein/fruits/veggies and lowering carb intake (unless contraindicated). Limit sodas, juices, and sugary drinks. Assessment & Plan (06/06/2023 3:41 PM EST): Recommend weight loss Perforation of left tympanic membrane 06/29/2022 Assessment & Plan (11/28/2023 1:43 PM EDT): Has upcoming surgery with ENT Disease of thyroid gland 06/28/2022 Assessment & Plan (04/04/2024 10:35 AM EDT): Check labs, await thyroid US results Assessment & Plan (11/28/2023 1:44 PM EDT): Abnormal levels could be part of the cause as well Qualitative platelet defects 06/28/2022 Overview (06/06/2023): pt has low platelet count, may be related to lupus Assessment & Plan (08/15/2024 6:49 AM EST): Continue with Hem/onc Tobacco dependence 06/28/2022 Assessment & Plan (08/15/2024 6:49 AM EST): The patient has been advised of the risks of continued smoking: stroke, MT, all forms of cancer, lung disease, and . Options for quitting smoking include: cold turkey, hypnosis, acupuncture, nicotine replacement meds (gum, lozenges, and patches), Buproprion, and Varenicline. At this time pt is encouraged to evaluate their goals for wanting to quit smoking, and reach out to provider when ready to start this process Patient meets requirements for low dose CT scan for lung cancer screening: age 55-80, patient is a current smoker or has quit in the last 15 years. Smoking history is > or equal to 30 pack-year. If needed the patient is able or willing to receive treatment. The patient is not currently exhibiting any s/s of lung cancer. We have discussed the benefits as well as harms of screening, follow up testing if needed, false positive rates. We have also discussed that this type of CT scan has less radiation exposure than a traditional lung CT scan. We have also discussed that it is important to follow with annual screening for this. The patient has also been counseled on the importance of smoking cessation. Assessment & Plan (05/14/2024 6:25 AM EST): The patient has been advised of the risks of continued smoking: stroke, MT, all forms of cancer, lung disease, and . Options for quitting smoking include: cold turkey, hypnosis, acupuncture, nicotine replacement meds (gum, lozenges, and patches), Buproprion, and Varenicline. At this time pt is encouraged to evaluate their goals for wanting to quit smoking, and reach out to provider when ready to start this process Patient meets requirements for low dose CT scan for lung cancer screening: age 55-80, patient is a current smoker or has quit in the last 15 years. Smoking history is > or equal to 30 pack-year. If needed the patient is able or willing to receive treatment. The patient is not currently exhibiting any s/s of lung cancer. We have discussed the benefits as well as harms of screening, follow up testing if needed, false positive rates. We have also discussed that this type of CT scan has less radiation exposure than a traditional lung CT scan. We have also discussed that it is important to follow with annual screening for this. The patient has also been counseled on the importance of smoking cessation. Compression syndrome, nerve 06/28/2022 Overview (06/06/2023): left lower extremity. HL (hearing loss) 06/28/2022 Overview (11/28/2023): left ear implant Essential hypertension 05/13/2021 Overview (03/24/2024): ECHO: 03/22/24.. EF normal, mild LVH, sl elevated pulmonary artery pressures as well Assessment & Plan (08/15/2024 6:47 AM EST): Please check blood pressure daily and record DASH diet Limit caffeine Take medication as directed Contact office if chest pain, pressure, dizziness, shortness of breath, swelling legs Recommend slow position changes Current meds: hydrochlorothiazide, losartan, metoprolol, aldactone Assessment & Plan (05/14/2024 11:57 AM EST): No dose changes in meds Assessment & Plan (04/04/2024 10:32 AM EDT): Stable, no med dose chagnes Assessment & Plan (03/04/2024 12:46 PM EDT): stable Assessment & Plan (11/28/2023 1:42 PM EDT): Stable on current meds no changes Obstructive sleep apnea syndrome 05/13/2021 Assessment & Plan (08/15/2024 6:45 AM EST): .L Assessment & Plan (03/27/2024 1:10 PM EDT): Tested in the past, never treated Nocturnal leg cramps 10/05/2017 Family history of breast cancer 04/13/2017 Dry mouth 01/05/2017 Chronic ITP (idiopathic thrombocytopenia) 2015 Assessment & Plan (11/28/2023 1:43 PM EDT): Continue with [facility] for treatment Lupus 03/03/2016 Abnormal weight loss 03/03/2016 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 Assessment & Plan (08/15/2024 6:49 AM EST): Fu as per Hem/onc Assessment & Plan (04/24/2024 7:08 AM EDT): Fu as per Hem/onc Encounters Date Type Department Care Team Description 10/07/2024 Refill [facility] [address] [place] [address] Stephanie Dumont NP Coronary artery disease involving elem coronary artery of elem heart without angina pectoris ([facility]/HCC) 09/25/2024 10:20 AM EDT Office Visit [facility] [address] [place] [place] [address] Nadia Mercado MD Thyroid nodule ([facility]) (Primary Dx) 09/25/2024 Bamboo flowsheet [facility] [address] [place] [address] Nadia Mercado MD 09/25/2024 Travel 09/17/2024 Clinisync Result Encounter [facility] Unsolicited Provider, Generic External Data from Last 3 Months Immunizations Immunization Administration Dates Next Due Influenza, High Dose Seasona l, Preservative Free 04/02/2024,04/01/2019,03/23/2018,04/08 Influenza, High-dose Seasona l, Quadrivalent, Preservative Free 03/25/2023,04/20/2022,03/23/2021,03/18 Pneumococcal Conjugate PCV 13 03/23/2018, 017 Pneumococcal Polysaccharide PPSV23 04/01/2019 Family History Medical History Relation Name Comments Cancer Father Diabetes Mother Heart disease Mother Hypertension Mother Cancer Sibling Heart disease Sibling Breast cancer Sister Relation Name Status Comments Father Mother Sibling Sister Social History Tobacco Use Types Packs/Day [...] Sign Reading Time Taken Comments Blood Pressure 140/67 09/25/2024 10:23 AM EDT Pulse 77 09/25/2024 10:23 AM EDT Temperature 37.1 C (98.7 F) 08/15/2024 10:46 AM EST Respiratory Rate 19 08/15/2024 10:46 AM EST Oxygen Saturation 99% 08/15/2024 10:46 AM EST Inhaled Oxygen Concentration - - Weight 82.6 kg (182 lb) 09/25/2024 10:23 AM EDT Height 160 cm (5' 3 ) 09/25/2024 10:23 AM EDT Body Mass Index 32.24 09/25/2024 10:23 AM EDT Plan of Treatment Upcoming Encounters Date Type Department Care Team (Late st Contact Info) Description 12/25/2024 11:00 AM EDT Office Visit [facility] [address] [place] [address] Stephanie Dumont NP [address] [place] [address] 04/02/2025 11:10 AM EDT Office Visit [facility] [address] [place] [address] Nadia Mercado MD [address] [facility] [address] [place] [address] Health Maintenance Due Date Last Done Comments CT Colonography 1950 FIT-DNA 1950 FIT 1950 FOBT 1950 Sigmoidoscopy 1950 Mammogram 04/17/2025 04/17/2024, 10/0 03/2024, 05/19/2023, Additional history exists Medicare Annual Wellness (AWV) 05/14/2025 05/14/2024 , 05/14/2024 Colonoscopy 07/25/2032 07/25/2022 Colorectal Cancer Screening 07/25/2032 Pneumococcal Vaccine: 65+ Years Completed 04/01/2019, 03/23/2018, 09/06/2016 Influenza Vaccine Completed 04/02/2024, , 04/20/2022, Additional history exists Procedures Procedure Name Priority Date/Time Associated Diagnosis Comments US THYROID 09/17/2024 7:07 PM EDT BI MAMMOGRAM SCREENING TOMOSYNTHESIS BILATERAL 04/17/2024 10:46 AM EDT from Last 3 Months or Most Recently Relevant to Health Maintenance Results * US thyroid (09/17/2024 7:07 PM EDT) Anatomical Region Laterality Modality Head, Neck Ultrasound 09/17/2024 7:07 PM EDT Narrative 09/17/2024 7:10 PM EDT The [address] [address] Ultrasound Report Signed Patient: JASPREET LEO MR#: [id number] : 1950 Acct:[id number] Age/Sex: 73 / F ADM Date: 09/17/24 Loc: US Attending Dr: Nadia Mercado M.D. Ordering Physician: Timmis,Nadia M.D. Date of Service: 09/17/24 Procedure(s): US thyroid Accession Number(s): [id number] cc: Stephanie Dumont NP; Nadia Mercado M.D. The [place] [id number] Patient Name: JASPREET LEO MRN: [id number] date: 1950 Sex: F Assigned Patient Location: US Current Patient Location: US Accession/Order Number: [id number] Exam Date: 09/17/2024 18:55 Report Date: 09/17/2024 19:07 At the request of: NADIA MERCADO MD Procedure: US thyroid Thyroid Ultrasound HISTORY: Thyroid nodule. Negative biopsy COMPARISON: 04/03/2024 The RIGHT lobe measures 4.1 x 1.7 x 1.7cm. LEFT lobe measures 3.6 x 1.8 x 2.0 cm. Isthmus has an AP dimension of 0.2cm. Heterogeneous thyroid parenchyma.. The 1.5 cm the right superior solid isoechoic and tolerated wide nodule unchanged. 2.0 cm right mid solid isoechoic thyroid nodule unchanged. 5 mm left superior solid hypoechoic nodule redemonstrated. 2.3 cm left mid solid isoechoic nodule redemonstrated. No microcalcifications identified. Symmetric blood flow of the thyroid gland identified. US/US thyroid IMPRESSION: Redemonstration of similar bilateral thyroid nodules. There are no new or significantly enlarging thyroid nodules. Impression dictated by: Valentin Peralta M.D.09/17/2024 7:07 PM Dictation Location: [place] [address] Electronically authenticated by: [id number] Y Date: 09/17/2024 19:07 Dictated By: Valentin Peralta D.O. Signed By: 09/17/241909 DD/ 06 TD/TT: Food And Beverage Intern: Procedure Note Radiology, Radiologist, - 09/17/2024 [place] [address] Ultrasound Report Signed Patient: JASPREET LEO ZMR#: [id number] : 1950cct:[id number] Age/Sex: 73 / FADM Date: 09/17/24 Loc: US Attending Dr: Nadia Mercado M.D. Ordering Physician: Nadia Mercado M.D. Date of Service: 09/17/24 Procedure(s): US thyroid Accession Number(s): [id number] cc: Stephanie Dumont POWER NUT RUNNER OPERATOR; Nadia Mercado M.D. [place] [id number] Patient Name: JASPREET LEO MRN: [id number] date: 1950 Sex: F Assigned Patient Location: US Current Patient Location: US Accession/Order Number: [id number] Exam Date: 09/17/2024 18:55 Report Date: 09/17/2024 19:07 At the request of: NADIA MERCADO MD Procedure: US thyroid Thyroid Ultrasound HISTORY: Thyroid nodule. Negative biopsy COMPARISON: 04/03/2024 The RIGHT lobe measures 4.1 x 1.7 x 1.7cm. LEFT lobe measures 3.6 x 1.8 x 2.0 cm. Isthmus has an AP dimension of 0.2cm. Heterogeneous thyroid parenchyma.. The 1.5 cm the right superior solid isoechoic and tolerated wide nodule unchanged. 2.0 cm right mid solid isoechoic thyroid nodule unchanged. 5 mm left superior solid hypoechoic nodule redemonstrated. 2.3 cm left mid solid isoechoic noduleredemonstrated. No microcalcifications identified. Symmetric blood flow of the thyroid gland identified. US/US thyroid IMPRESSION: Redemonstration of similar bilateral thyroid nodules. Thereare no new or significantly enlarging thyroid nodules. Impression dictated by: Valentin Peralta M.D.09/17/2024 7:07 PM Dictation Location: [place] [address] Electronically authenticated by: [id number] Y Date: 9:07 Dictated By: Valentin Peralta D.O. Signed By:09/17/241909 DD/ 06 TD/TT: Food And Beverage Intern: us Generic External Data Provider IMG US PROCEDURES Final Result * Bilateral screening mammogram with tomosynthesis (04/17/2024 10:46 AM EDT) Anatomical Region Laterality Modality Breast Bilateral Mammography 04/17/2024 10:4 6 AM EDT Narrative 04/17/2024 10:45 AM EDT THIS EXAM WAS PERFORMED AT [facility] 1950 [id number] EXAM: MAMM SCREENING BILATERAL W CAD, 04/17/2024 10:03 AM CLINICAL INDICATIONS: Screening, Visit for screening mammogram COMPARISON: 02/17/2017 TECHNIQUE: Bilateral digital tomosynthesis MLO and CC views of the breasts were obtained, with creation of synthetic 2D views. Computer aided detection was utilized. FINDINGS: The breasts are heterogeneously dense, which may obscure small masses. There are no suspicious masses, calcifications, or areas of architectural distortion. IMPRESSION: No mammographic evidence of malignancy. BI-RADS: BI-RADS 1 - Negative Recommendation: Routine screening mammogram in 1 year. Finalized by Declan Aguayo MD on 04/17/2024 10:45 AM 1 c MAMM 1 YR FDA Accredited Performing Facility: [facility] - Mammography[facility]A [facility] [address] [facility] [address] Procedure Note Radiology, Radiologist, - 04/17/2024 THIS EXAM WAS PERFORMED AT [facility] 1950 [id number] EXAM: MAMM SCREENING BILATERAL W CAD, 04/17/2024 10:03 AM CLINICAL INDICATIONS: Screening, Visit for screening mammogram COMPARISON: 02/17/2017 TECHNIQUE: Bilateral digital tomosynthesis MLO and CC views of the breasts wereobtained, with creation of synthetic 2D views. Computer aided detectionwas utilized. FINDINGS: The breasts are heterogeneously dense, which may obscure small masses. There are no suspicious masses, calcifications, or areas of architecturaldistortion. IMPRESSION: No mammographic evidence of malignancy. BI-RADS: BI-RADS 1 - Negative Recommendation: Routine screening mammogram in 1 year. Finalized by Declan Aguayo MD on 04/17/2024 10:45 AM 1 c MAMM 1 YR FDA Accredited Performing Facility: [facility]ammography[facility] [address] [place] [address] Stephanie Dumont POWER NUT RUNNER OPERATOR IMG BI PROCEDURES Final Result from Last 3 Months or Most Recently Relevant to Health Maintenance Insurance [employer] [place] [address] Care Teams Caul Fat Puller Relationship Specialty Start Date End Date Stephanie Dumont NP [address] [place] [phone] PCP - [facility] 10/09/23 12/07/70 Wilfred Polanco MD [address] [place] [phone] PCP - General Family Medicine 05/13/24 Stephanie Dumont NP [address] [place] [address] Nurse Practitioner Family Medicine 04/09/23
--- OUTSIDE RECORDS SUMMARY | 2024-12-12 15:49 | XMS_ITS | Encounter Summary ---
Author Organization [facility] Address [address] [place] [address] Care Team Providers Care Transcription Coordinator Name Role Phone Stephanie Dumont NP Unavailable [phone] Wilfred Polanco MD Primary Care Provider [phone] Stephanie Dumont HARDENING MACHINE OPERATOR Unavailable [phone] Wilfred Polanco MD Primary Care Provider [phone] Encounter Details Date Type Department Care Team (Late Contact Info) Description 04/16/2024 Orders Only [facility] [address] [place] [phone] Stephanie Dumont NP [address] [place] [address] Social History Tobacco Use Types Packs/Day Years [...] Upcoming Encounters Date Type Department Care Team ([facility] Contact Info) Description 12/25/2024 11:00 AM EDT Office Visit [facility] [address] [place] [phone] Stephanie Dumont NP [address] [place] [address] 04/02/2025 11:10 AM EDT Office Visit [facility] [address] [facility] [address] [place] [address] Nadia Mercado MD [address] [facility] [address] [place] [address] documented as of this encounter Procedures Procedure Name Priority Date/Time Associated Diagnosis Comments BIOPSY THYROID Routine 04/16/2024 4:42 PM EDT documented in this encounter Results * Biopsy thyroid (04/16/2024 4:42 PM EDT) us Stephanie Dumont NP IN CLINIC/BEDSIDE ORDERABLES Fi nal Result documented in this encounter Visit Diagnoses Not on filedocumented in this encounter Care Teams Transcription Coordinator Relationship Specialty Start Date End Date Wilfred Polanco MD [address] [place] [phone] PCP - General Family Medicine 08/17/23 04/23/24 Stephanie Dumont NP [address] [place] [address] PCP - [facility] 10/09/23 12/07/70 Wilfred Polanco MD [address] [place] [address] PCP - General Family Medicine 05/13/24 Stephanie Dumont NP [address] [place] [address] Nurse Practitioner Family Medicine 04/09/23 documented as of this encounter
--- OUTSIDE RECORDS SUMMARY | 2024-12-12 15:49 | XMS_ITS | Encounter Summary ---
Author Organization [facility] Address [address] [facility] [place] [address] Care Team Providers Care Lead Investigator Name Role Phone Stephanie Dumont NP Unavailable [phone] Wilfred Polanco MD Primary Care Provider [phone] Stephanie Dumont NP Unavailable [phone] Wilfred Polanco MD Primary Care Provider [phone] Encounter Details Date Type Department Care Team ([facility] Contact Info) Description 04/16/2024 Clinisync Result Encounter [facility] External Department Unsolicited Stephanie Dumont NP [address] [place] [address] Social History Tobacco Use Types Packs/Day Years [...] Upcoming Encounters Date Type Department Care Team ([facility] Contact Info) Description 12/25/2024 11:00 AM EDT [facility] [address] [place] [address] Stephanie Dumont NP [address] [place] [phone] 04/02/2025 11:10 AM EDT Office Visit [facility] [address] [facility] [address] [place] [address] Nadia Mercado MD [address] [facility] [address] [place] [address] documented as of this encounter Procedures Procedure Name Priority Date/Time Associated Diagnosis Comments US BIOPSY THYROID 04/16/2024 3:5 5 PM EDT documented in this encounter Results * US BIOPSY THYROID (04/16/2024 3:55 PM EDT) Anatomical Region Laterality Modality Other 04/16/2024 3:55 PM EDT Narrative 04/16/2024 3:57 PM EDT The [address] [address] Ultrasound Report Signed Patient: JASPREET LEO MR#: [id number] : 1950 Acct:[id number] Age/Sex: 73 / F ADM Date: 04/16/24 Loc: US Attending Dr: Stephanie Dumont APPLICATION INTEGRATOR Ordering Physician: Stephanie Dumont NP Date of Service: 04/16/24 Procedure(s): US biopsy thyroid Accession Number(s): [id number] cc: Stephanie Dumont NP [address] [address] Patient Name: JASPREET LEO MRN: [id number] date: 1950 Sex: F Assigned Patient Location: US Current Patient Location: Accession/Order Number: [id number] Exam Date: 04/16/2024 14:00 Report Date: 04/16/2024 15:55 At the request of: STEPHANIE DUMONT Procedure: US biopsy thyroid EXAMINATION: US biopsy thyroid HISTORY: Chronic Idiopathic Thrombocytopenia, Thyroid Nodule COMPARISON: Ultrasound thyroid 04/03/2024 TECHNIQUE: After obtaining informed consent, ultrasound-guided fine needle aspiration was performed in the usual sterile manner. FINDINGS: IMAGING: Ultrasound. BIOPSY NEEDLE: 25-gauge; 3 separate passes LOCATION: Mid right thyroid lobe 2.0 x 1.6 x 1.3 cm heterogeneous TR 4 nodule. SPECIMEN TYPE: Cellular tissue. LOCAL ANESTHETIC: Buffered Xylocaine. COMPLICATIONS: None. LABORATORY: Prepared slide smears and washings for cell block evaluation. OTHER: Negative. PATHOLOGY: Pending. An addendum will be added when results are available. US/US biopsy thyroid IMPRESSION: 1. Uneventful ultrasound guided fine needle aspiration (FNA). 2. Pathology results are pending. Electronically authenticated by: SIMON ZUNIGA Date: 04/16/2024 15:55 Dictated By: Simon Zuniga M.D. Signed By: 04/16/24 1557 DD/ 1555 TD/TT: Licensing Officer: Procedure Note Radiology, Radiologist, MD - 04/16/2024 [place] [address] Ultrasound Report Signed Patient: JASPREET LEO R#: [id number] : 1950cct:[id number] Age/Sex: 73 / FADM Date: 04/16/24 Loc: US Attending Dr: Stephanie Dumont NP Ordering Physician: Setphanie Dumont NP Date of Service: 04/16/24 Procedure(s): US biopsy thyroid Accession Number(s): [id number] cc: Stephanie Dumont NP The [address] [address] Patient Name: JASPREET LEO MRN: [id number] date: 1950 Sex: F Assigned Patient Location: US Current Patient Location: Accession/Order Number: [id number] Exam Date: 04/16/2024 14:00 Report Date: 04/16/2024 15:55 At the request of: STEPHANIE DUMONT Procedure: US biopsy thyroid EXAMINATION: US biopsy thyroid HISTORY: Chronic Idiopathic Thrombocytopenia, Thyroid Nodule COMPARISON: Ultrasound thyroid 04/03/2024 TECHNIQUE: After obtaining informed consent, ultrasound-guided fine needle aspiration was performed in the usual sterile manner. FINDINGS: IMAGING: Ultrasound. BIOPSY NEEDLE: 25-gauge; 3 separate passes LOCATION: Mid right thyroid lobe 2.0 x 1.6 x 1.3 cm heterogeneous TR 4nodule. SPECIMEN TYPE: Cellular tissue. LOCAL ANESTHETIC: Buffered Xylocaine. COMPLICATIONS: None. LABORATORY: Prepared slide smears and washings for cell block evaluation. OTHER: Negative. PATHOLOGY: Pending. An addendum will be added when results are available. US/US biopsy thyroid IMPRESSION: 1. Uneventful ultrasound guided fine needle aspiration (FNA). 2. Pathology results are pending. Electronically authenticated by: SIMON ZUNIGA Date: 04/16/2024 15:55 Dictated By: Simon Zuniga M.D. Signed By:04/16/24 1557 DD/ 1555 TD/TT: Licensing Officer: us Stephanie Dumont NP [facility] Final Result documented in this encounter Visit Diagnoses Not on filedocumented in this encounter Care Teams Lead Investigator Relationship Specialty Start Date End Date Wilfred Polanco MD [address] [place] [phone] PCP - General Family Medicine 08/17/23 04/23/24 Stephanie Dumont NP [address] [place] [phone] PCP - [facility] 10/09/23 12/07/70 Wilfred Polanco MD [address] [place] [phone] PCP - General Family Medicine 05/13/24 Stephanie Dumont NP [address] [place] [phone] Nurse Practitioner Family Medicine 04/09/23 documented as of this encounter
--- OUTSIDE RECORDS SUMMARY | 2024-12-12 15:49 | XMS_ITS | Clinical Summary ---
Author Organization [facility] Address [address] [place] [address] Care Team Providers Care Newspaper Copy Editor Name Role Phone Stephanie Dumont MD Primary Care Provider Allergies Active Allergy Reactions Criticality Noted Date Comments Tetanus Vaccines And Toxoid Itching,Unknown,Othe r 03/03/2016 Vancomycin Itching,Other,Unknow n 03/03/2016 States had burning sensation t/o entire body. (Infectious disease) States medication was given too fast. Flushing Burning sensation Medications Medication Sig Dispensed Refills Start Date End Date Status hydroCHLOROthiazide (HYDRODiuril) 25 mg tablet Take 25 mg by mouth in the morning. Active losartan (Cozaar) 25 mg tablet Take 50 mg by mouth. 06/15/2022 Acti ve metoprolol succinate XL (Toprol-XL) 25 mg 24 hr tablet Take 12.5 mg by mouth in the morning. 03/04/2024 Active spironolactone (Aldactone) 25 mg tablet Take 25 mg by mouth in the morning. Active pilocarpine (Salagen) 5 mg tablet Take 5 mg by mouth 3 times a day. 01/27/2023 Active alendronate (Fosamax) 70 mg tablet PLEASE SEE ATTACHED FOR DETAILED DIRECTIONS 06/06/2023 Active ergocalciferol (Vitamin D-2) 1.25 MG (41579 Units) capsule Take 50,000 Units by mouth 1 (one) time per week. Active fostamatinib (Tavalisse) 100 mg tablet Take 100 mg by mouth in the morning. Active Social History Tobacco Use Types Packs/Day Years Used Date Smoking Tobacco: Every Day Cigarettes Smokeless Tobacco: Never Tobacco Cessation:Ready to Q uit: Not Asked; Counseling Given: Not Answered Humiliation, Afraid, Rape, and Kick questionnair e Answer Date Recorded Within the last year, have y ou been afraid of your partner or ex-partner? No 05/21/2024 Emotionally Abused Not on file 05/21/2024 Physically Abused Not on file 05/21/2024 Sexually Abused Not on file 05/21/2024 PHQ-2 Answer Date Recorded Patient Health Questionnaire-2 Score 0 05/31/2024 Sex and Gender Information Value Date Recorded Sex Assigned at Female 05/21/2024 1:35 PM EST Gender Identity Female 05/21/2024 1:35 PM EST Sexual Orientation Don't know 05/21/2024 1: 35 PM EST Last Filed Vital Signs Vital Sign Reading Time Taken Comments Blood Pressure - - Pulse - - Temperature - - Respiratory Rate - - Oxygen Saturation - - Inhaled Oxygen Concentration - - Weight 83.5 kg (184 lb) 05/31/2024 10:32 AM EST Height 160 cm (5' 3 ) 05/31/2024 10:32 AM EST Body Mass Index 32.59 05/31/2024 10:32 AM EST Plan of Treatment Health Maintenance Due Date Last Done Comments CT Colonography 1950 Colonoscopy 1950 Colorectal Cancer Screening 1950 FIT-DNA 1950 FIT 1950 FOBT 1950 Medicare Annual Wellness (AWV) 1950 Sigmoidoscopy 1950 Adult Tetanus 1972 Zoster Vaccines (1 of 2) 2000 COVID-19 Vaccine ( season) 2024 05/17/2024, 05/26/2023, 02/05/2022, Additional history exists Depression Screening 05/31/2025 05/31/2024 Fall Risk Screening 05/31/2025 05/31/2024 Mammogram 04/17/2026 04/17/2024 Pneumococcal Vaccine: 65+ Years Completed 04/01/2019, 03/23/2018, 09/06/2016 Influenza Vaccine Completed 04/02/2024, , 04/20/2022, Additional history exists HIB Vaccines Aged Out No longer eligi ble based on patient's age to complete this topic HPV Vaccines Aged Out No longer eligi ble based on patient's age to complete this topic IPV Vaccines Aged Out No longer eligi ble based on patient's age to complete this topic Meningococcal B Vaccine Aged Out No l onger eligible based on patient's age to complete this topic Meningococcal Vaccine Aged Out No garrett wil eligible based on patient's age to complete this topic Rotavirus Vaccines Aged Out No longer eligible based on patient's age to complete this topic Care Teams Newspaper Copy Editor Relationship Specialty Start Date End Date Stephanie Dumont MD [address] [place] [phone] PCP - General Nurse Practitioner 05/16/24
--- OUTSIDE RECORDS SUMMARY | 2024-12-12 15:49 | XMS_ITS | Clinical Summary ---
Author Organization [facility] Address [address] [place], [place] [id number] Care Team Providers Care Waste Management Engineer Name Role Phone Stephanie Dumont Primary Care Provider Unavailabl e Allergies Active Allergy Reactions Criticality Noted Date Comments Diphtheria,Pertussis (Acellular),Tetanus Vaccine Rash Low 06/06/2023 Tetanus Vaccines And Toxoid Unknown 03/03/20 16 Vancomycin Unknown 03/03/2016 Burning sensation Medications spironolactone (ALDACTONE) 25 mg tablet Take 25 mg by mouth once daily. 3 Active ergocalciferol 50,000 unit capsule (VITAMIN D2, DRISDOL) Take 1 capsule by mouth one time a week. 3 Active alendronate (FOSAMAX) 70 mg tablet PLEASE SEE ATTACHED FOR DETAILED DIRECTIONS 3 Active hydroCHLOROthiaz kristian 25 mg tabletIndication s:Essential hypertension,Chr onic ITP (idiopathic thrombocytopenia ) (HCC),Obstructiv e sleep apnea syndrome take 1 tablet by mouth every day 90 tablet 3 4 Active metoprolol succinate ER (TOPROL XL) 25 mg 24 hr tablet Take 12.5 mg by mouth once daily. 4 Active fostamatinib (TAVALISSE) 100 mg tablet Take 1 tablet by mouth two times a day. 60 tablet 11 4 Active benzonatate (TESSALON PERLE) 100 mg capsule Take 1 capsule by mouth every 6 hours as needed for cough. 100 capsule 08/30/2024 11:46 AM EST 5 Active losartan (COZAAR) 25 mg tabletIndication s:Hypertension, unspecified type TAKE 2 TABLETS BY MOUTH AT BEDTIME 180 tablet 3 5 Active cyclobenzaprine (FLEXERIL) 5 mg tablet Take 1 tablet by mouth daily at bedtime. 10 tablet Active pilocarpine (SALAGEN) 5 mg tablet Take 1 tablet by mouth three times a day. 90 tablet 3 11/06/2024 9:37 AM EDT 5 Active Active Problems Problem Noted Date Diagnosed Date Stage 3b chronic kidney disease 11/22/2024 Anemia in chronic kidney disease (CKD) 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 deficien cy 03/05/2024 Obstructive sleep apnea syndrome 05/13/2021 Essential hypertension 05/13/2021 Nocturnal leg cramps 10/05/2017 Chronic ITP (idiopathic thrombocytopenia) 2017 Family history of breast cancer 04/13/2017 Acute ITP 05/26/2016 Thrombocytopenia 03/03/2016 Abnormal weight loss 03/03/2016 Lupus (systemic lupus erythematosus) 03/03/2016 Encounters Date Type Department Care Team Description 2024 1:45 PM EDT [facility] Hematology/Oncology [address] [place] [address] [place] [address] 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) (Primary Dx) 11/22/2024 2:30 PM EDT Nurse Visit Hematology/Oncology [address] [place] [address] [place] [address] Debora Gaona Nurse Clarence 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 deficiency (Primary Dx); Thrombocytopenia; Abnormal weight loss; Chronic ITP (idiopathic thrombocytopenia) (HCC) 11/22/2024 2:00 PM EDT Visit (SP) Office Hematology/Oncology [address] [place] [address] [place] [address] Rinku Dupree MD Chronic ITP (idiopathic thrombocytopenia) (HCC) (Primary Dx); Stage 3b chronic kidney disease (HCC); 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); 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 deficiency; Systemic lupus erythematosus, unspecified SLE type, unspecified organ involvement status (HCC) 11/22/2024 Travel 11/06/2024 Social Work Hematology/Oncology [address] [place] [address] [place] [address] Katheryn Hobson LSW 11/05/2024 Refill [facility] [address] [place] [address] Rinku Dupree MD Refill Request 10/11/2024 11:00 AM EDT Nurse Visit Hematology/Oncology [address] [place] [address] [place] [address] Debora Gaona Nurse Clarence 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 deficiency (Primary Dx); Thrombocytopenia; Abnormal weight loss; Chronic ITP (idiopathic thrombocytopenia) (HCC) 10/11/2024 10:30 AM EDT Visit (SP) Office Hematology/Oncology [address] [place] [address] [place] [address] Li Frank APRN.COLLEGE RECRUITER 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 deficiency (Primary Dx); Thrombocytopenia 10/11/2024 Travel from Last 3 Months Immunizations Immunization Administration Dates Next Due COVID-19 original vaccine, f ull dose, monovalent (MODERNA) 10/17/2020,09/19/2020 influenza (HD-IIV3) vaccine, age 65+ yr, high dose, trivalent, PF (FLUZONE HIGH-DOSE) 04/01/2019,03/23/2018,04/08/2017 influenza (HD-IIV4) vaccine, age 65+ yr, high dose, quadrivalent, PF (FLUZONE HIGH-DOSE) 03/25/2023,04/20/2022,03/23/2021,03/18 pneumococcal conjugate (PCV1 3) vaccine, 13 valent (PREVNAR 13) 03/23/2018,09/06/2016 pneumococcal polysaccharide (PPV23) vaccine, 23 valent (PNEUMOVAX 23) 04/01/2019 Social History Tobacco Use Types Packs/Day Years Used Date Smoking Tobacco: Light Smoker Cigarettes Passive Smoke Exposure: Past Smokeless Tobacco: Never Tobacco Cessation:Ready to Q uit: No; Counseling Given: No Alcohol Use Standard Drinks/Week Comments No 0 (1 standard drink = 0.6 oz pur e alcohol) PHQ-2 Answer Date Recorded PHQ-2 score 0 04/18/2024 Area Deprivation Index Answer Date Andrea rded National Score (1-100), lower number is lower ri sk 95 12/15/2022 State Score (1-10), lower number is lower risk 9 12/15/2022 Data from: https://www.neighborhoodatlas.[facility]/. Last address used for calculation [address] [...] EDT Inhaled Oxygen Concentration - - Weight 81.8 kg (180 lb 5.4 oz) 11/22/2024 1:57 P M EDT Height 158.8 cm (5' 2.52 ) 07/11/2024 10:[address] Body Mass Index 32.44 07/11/2024 10:52 AM EST Plan of Treatment Upcoming Encounters Date Type Department Care Team (Latest Contact Info) Description 12/20/2024 1:30 PM EDT Office Visit [facility] [address] [place] [address] Lab & Aranesp 12/20/2024 1:45 PM EDT Infusion Center Hematology/Oncology [address] [place] [address] [place] [address] Lab & Aranesp 01/03/2025 1:45 PM EDT Office Visit [facility] [address] [facility] [address] 6 week follow up, labs, B12 & Aranesp 01/03/2025 2:00 PM EDT Visit (SP) Office Hematology/Oncology [address] [facility] [address] Josi Burris APRN.COLLEGE RECRUITER [address] [place] [address] 6 week follow up, labs, B12 & Aranesp 01/03/2025 2:30 PM EDT Infusion Center Hematology/Oncology [address] [place] [address] [place] [address] 6 week follow up, labs, B12 & Aranesp Health Maintenance Due Date Last Done Comments Cervical Cancer Screening 1961 Annual PCP Team Chronic Dise ase Visit 1968 Anxiety Screening 1968 BP Controlled (<130/80) 1968 Depression Screening 1968 DTaP,Tdap,Td Vaccine (1 - Tdap) 1969 Shingrix Vaccine (1 of 2) 1969 CT Colonography 12/07/1995 Cologuard (FIT-DNA) 12/07/1995 Fecal Occult Blood 12/07/1995 Sigmoidoscopy 12/07/1995 RSV Vaccine (1 - Risk 60-74 years 1-dose series) 2010 Bone Density Screening 12/07/2015 Lipid Screening 03/30/2022 03/30/2017 Colonoscopy 07/25/2023 07/25/2022, 07/25/2022 Colorectal Cancer Screening 07/25/2023 Advance Directive Discussion 07/10/2024 Covid-19 Vaccine (7 - Modern a risk season) 2024 05/17/2024, 05/26/2023, 02/05/2022, Additional history exists Mammogram Screening 04/17/2025 04/17/2024, 04/17/2024, 04/17/2024, Additional history exists Hemoglobin/Hematocrit 2025 2024 , 11/22/2024, 10/11/2024, Additional history exists Serum Creatinine 2025 2024, , 10/11/2024, Additional history exists Diabetes Screening 12/07/2027 2024, 0 11/22/2024, 10/11/2024, Additional history exists Pneumococcal Vaccine: 50+ Completed 2018, 03/23/2018, 09/06/2016 Hepatitis C Screening Completed 10/31/2019 , 07/24/2019, 08/31/2017 Influenza Vaccine Completed 04/02/2024, , 04/20/2022, Additional history exists Procedures Procedure Name Priority Date/Time Associated Diagnosis Comments ERYTHROPOIETIN/EPO Routine 2024 1: 22 PM EDT Stage 3b chronic kidney disease (HCC) 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) RETIC COUNT Routine 2024 1:22 PM EDT Stage 3b chronic kidney disease (HCC) 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) FOLATE SERUM Routine 2024 1:22 PM EDT Stage 3b chronic kidney disease (HCC) 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) VITAMIN B12 BLOOD Routine 2024 1:2 2 PM EDT Stage 3b chronic kidney disease (HCC) 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) FERRITIN BLD Routine 2024 1:22 PM EDT Stage 3b chronic kidney disease (HCC) 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) IRON + TIBC Routine 2024 1:22 PM EDT Stage 3b chronic kidney disease (HCC) 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) COMPREHENSIVE METABOLIC PANEL Routine 2024 1:22 PM EDT Stage 3b chronic kidney disease (HCC) 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) CBC + DIFF Routine 2024 1:22 PM EDT Stage 3b chronic kidney disease (HCC) 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) FOLATE SERUM Routine 11/22/2024 1:02 PM EDT Hyperglycemia Chronic ITP (idiopathic thrombocytopenia) (HCC) 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 deficiency Obstructive sleep apnea syndrome VITAMIN B12 BLOOD Routine 11/22/2024 1:0 2 PM EDT Hyperglycemia Chronic ITP (idiopathic thrombocytopenia) (HCC) 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 deficiency Obstructive sleep apnea syndrome FERRITIN BLD Routine 11/22/2024 1:02 PM EDT Hyperglycemia Chronic ITP (idiopathic thrombocytopenia) (HCC) 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 deficiency Obstructive sleep apnea syndrome IRON + TIBC Routine 11/22/2024 1:02 PM EDT Hyperglycemia Chronic ITP (idiopathic thrombocytopenia) (HCC) 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 deficiency Obstructive sleep apnea syndrome COMPREHENSIVE METABOLIC PANEL Routine 11/22/2024 1:02 PM EDT Hyperglycemia Chronic ITP (idiopathic thrombocytopenia) (HCC) 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 deficiency Obstructive sleep apnea syndrome CBC + DIFF Routine 11/22/2024 1:02 PM EDT Hyperglycemia Chronic ITP (idiopathic thrombocytopenia) (HCC) 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 deficiency Obstructive sleep apnea syndrome FOLATE SERUM Routine 10/11/2024 10:01 AM EDT Hyperglycemia Chronic ITP (idiopathic thrombocytopenia) (HCC) 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 deficiency Obstructive sleep apnea syndrome VITAMIN B12 BLOOD Routine 10/11/2024 10: 01 AM EDT Hyperglycemia Chronic ITP (idiopathic thrombocytopenia) (HCC) 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 deficiency Obstructive sleep apnea syndrome FERRITIN BLD Routine 10/11/2024 10:01 AM EDT Hyperglycemia Chronic ITP (idiopathic thrombocytopenia) (HCC) 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 deficiency Obstructive sleep apnea syndrome IRON + TIBC Routine 10/11/2024 10:01 AM EDT Hyperglycemia Chronic ITP (idiopathic thrombocytopenia) (HCC) 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 deficiency Obstructive sleep apnea syndrome COMPREHENSIVE METABOLIC PANEL Routine 10/11/2024 10:01 AM EDT Hyperglycemia Chronic ITP (idiopathic thrombocytopenia) (HCC) 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 deficiency Obstructive sleep apnea syndrome CBC + DIFF Routine 10/11/2024 10:01 AM EDT Hyperglycemia Chronic ITP (idiopathic thrombocytopenia) (HCC) 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 deficiency Obstructive sleep apnea syndrome *HEP C AB Routine 10/31/2019 10:10 AM EDT Thrombocytopenia (HCC) LIPID PANEL, FASTING Fax 03/30/2017 2:00 PM EDT from Last 3 Months or Most Recently Relevant to Health Maintenance Results * VITAMIN B12 (2024 1:22 PM EDT) Only the most recent of3 resultswithin the time period is included. Vitamin B12 820 232 - 1,245 pg/mL 12/07/2024 3:06 PM EDT [facility] Blood BLOOD SPECIMEN / Unknown Venipuncture / Unknown 2024 1:22 PM EDT 2024 1:22 PM EDT us Rinku Dupree MD LABORATORY Final Result Performing Organization Address [facility]/ZIP Co de Phone Number [facility] [address] [place] [address], * RETICULOCYTE COUNT (2024 1:22 PM EDT) Pathologist [facility] Retic % 1.8 0.4 - 2.0 % 2024 1:25 PM EDT [facility] Abs Retic 0.057 0.018 - 0.100 M/uL 2024 1:25 PM EDT [facility] Blood BLOOD SPECIMEN / Unknown Venipuncture / Unknown 2024 1:22 PM EDT 2024 1:22 PM EDT us Rinku Dupree MD LABORATORY Final Result [facility] [address] [place] [address] * IRON AND TIBC (2024 1:22 PM EDT) Only the most recent of3 resultswithin the time period is included. Iron 71 41 - 186 ug/dL 12/07/2024 2:47 PM EDT [facility] TIBC 329 232 - 386 ug/dL 12/07/2024 2:47 PM EDT [facility] Transferrin Saturation 21.6 15.0 - 57.0 % 12/07/2024 2:47 PM EDT [facility] Blood BLOOD SPECIMEN / Unknown Venipuncture / Unknown 2024 1:22 PM EDT 2024 1:22 PM EDT us Rinku Dupree MD LABORATORY Final Result [facility] [address] [place] [address], [place] * FOLATE, SERUM (2024 1:22 PM EDT) Only the most recent of3 resultswithin the time period is included. Folate 8.1 >4.7 ng/mL 12/07/2024 3:06 PM EDT [facility] Blood BLOOD SPECIMEN / Unknown Venipuncture / Unknown 2024 1:22 PM EDT 2024 1:22 PM EDT us Rinku Dupree MD LABORATORY Final Result Performing Organization Address City/[facility]/ZIP Co de Phone Number [facility] [address] [place] [address], [place] * FERRITIN (2024 1:22 PM EDT) Only the most recent of3 resultswithin the time period is included. Ferritin 105.0 14.7 - 205.1 ng/mL 12/07/2024 3:06 PM EDT [facility] Blood BLOOD SPECIMEN / Unknown Venipuncture / Unknown 2024 1:22 PM EDT 2024 1:22 PM EDT us Rinku Dupree MD LABORATORY Final Result [facility] [address] [facility] [address] [address], [place] * (ABNORMAL) ERYTHROPOIETIN/EPO (2024 1:22 PM EDT) [facility] Erythropoietin 66.5(H) 2.6 - 18.5 mIU/mL 12/09/2024 1:15 PM EDT [facility] Blood BLOOD SPECIMEN / Unknown Venipuncture / Unknown 2024 1:22 PM EDT 2024 1:22 PM EDT Narrative [facility] - 12/09/2024 1:15 PM EDT Test analyzed by the Leopoldo DxI method. us Rinku Dupree MD LABORATORY Final Result Performing Organization Address [facility] Co de Phone Number [facility] [address] [address], [place] * (ABNORMAL) COMPREHENSIVE METABOLIC PANEL (2024 1:22 PM EDT) Only the most recent of3 resultswithin the time period is included. [facility] Protein, Total 7.1 6.3 - 8.0 g/dL 2024 2:26 PM EDT [facility] Albumin 3.7(L) 3.9 - 4.9 g/dL 2024 2:26 PM EDT [facility] Calcium, Total 10.0 8.5 - 10.2 mg/dL 2024 2:26 PM EDT [facility] Bilirubin, Total 0.4 0.2 - 1.3 mg/dL 2024 2:26 PM EDT [facility] Alkaline Phosphatase 81 34 - 123 U/L 2024 2:26 PM EDT [facility] AST 21 13 - 35 U/L 2024 2:26 PM EDT [facility] ALT 12 7 - 38 U/L 2024 2:26 PM T [facility] Glucose 98 74 - 99 mg/dL 2024 2:26 PM [facility] Comment: The [place] Diabetes Association (ADA) provides guidance for cutoff [...] Standards of Medical Care in Diabetes 2016, [place] Diabetes Association. Diabetes Care. 2016.39(Suppl 1). BUN 36(H) 7 - 21 mg/dL 2024 2:26 PM [facility] Creatinine 1.16(H) 0.58 - 0.96 mg/dL 2024 2:26 PM [facility] Sodium 137 136 - 144 mmol/L 2024 2:26 PM [facility] Potassium 4.9 3.7 - 5.1 mmol/L 2024 2:26 PM [facility] Chloride 106 98 - 107 mmol/L 2024 2:26 PM [facility] CO2 23 22 - 30 mmol/L 2024 2:26 PM [facility] Anion Gap 8 8 - 15 mmol/L 2024 2:26 PM [facility] Estimated Glomerular Filtration Rate 50(L) >=60 mL/min/1. 73m 2024 2:26 PM [facility] Comment:Estimated Glomerular Filtration Rate (eGFR) is calculated using the 2020 CKD-EPI creatinine equation. This equation utilizes serum creatinine, sex, and age as parameters. The creatinine assay has traceable calibration to isotope dilution- mass spectrometry. Refer to KDIGO guidelines for clinical interpretation. In patients with unstable renal function, e.g. those with acute kidney injury, the eGFR may not accurately reflect actual GFR. Blood BLOOD SPECIMEN / Unknown Venipuncture / Unknown 2024 1:22 PM EDT 2024 1:22 PM EDT Rinku Dupree MD LABORATORY Final Result [facility] [address] [place] [address] * (ABNORMAL) COMPLETE BLOOD COUNT AND DIFFERENTIAL (2024 1:22 PM EDT) Only the most recent of3 resultswithin the time period is included. WBC 5.72 3.70 - 11.00 k/uL 2024 1:25 PM EDT [facility] RBC 3.22(L) 3.90 - 5.20 m/uL 2024 1:25 PM EDT [facility] Hemoglobin 10.4(L) 11.5 - 15.5 g/dL 2024 1:25 PM EDT [facility] Hematocrit 32.4(L) 36.0 - 46.0 % 2024 1:25 PM EDT [facility] MCV 100.6(H) 80.0 - 100.0 fL 2024 1:25 PM EDT [facility] MCH 32.3 26.0 - 34.0 pg 2024 1:25 PM EDT [facility] MCHC 32.1 30.5 - 36.0 g/dL 2024 1:25 PM EDT [facility] RDW-CV 14.0 11.5 - 15.0 % 2024 1:25 PM EDT [facility] Platelet Count 165 150 - 400 k/uL 2024 1:25 PM EDT [facility] MPV 9.2 9.0 - 12.7 fL 2024 1:25 PM EDT [facility] Neutrophils % 50.6 % 2024 1:25 PM EDT [facility] Abs Neut 2.90 1.45 - 7.50 k/uL 2024 1:25 PM EDT [facility] Lymphocytes % 43.2 % 2024 1:25 PM EDT [facility] Abs Lymph 2.47 1.00 - 4.00 k/uL 2024 1:25 PM EDT [facility] Monocytes % 4.9 % 2024 1:25 PM EDT [facility] Abs [place] 0.28 <0.87 k/uL 2024 1:25 PM EDT [facility] Eosinophils % 0.9 % 2024 1:25 PM EDT [facility] Abs Eosin 0.05 <0.46 k/uL 2024 1:25 PM EDT [facility] Basophils % 0.2 % 2024 1:25 PM EDT [facility] Abs Baso <0.03 <0.11 k/uL 2024 1:25 PM EDT [facility] Immature Granulocytes % 0.2 % 2024 1:25 PM EDT [facility] Abs Immature Gran <0.03 <0.10 k/uL 2024 1:25 PM EDT [facility] NRBC 0.0 /100 WBC 2024 1:25 PM EDT [facility] Absolute nRBC <0.01 <0.01 k/uL 2024 1:25 PM EDT [facility] Diff Type Auto 2024 1:25 PM EDT [facility] Blood BLOOD SPECIMEN / Unknown Venipuncture / Unknown 2024 1:22 PM EDT 2024 1:22 PM EDT Rinku Dupree MD LABORATORY Final Result Performing Organization Address City/[facility]/ZIP Co de Phone Number [facility] [address] [place] [address] * (ABNORMAL) HEP REMOTE PANEL BL (10/31/2019 10:10 AM EDT) Hep B Core Ab, Total Negative Negative 10/31/2019 6:02 PM EDT [facility] Hep C Antibody [place] Negative Negative 10/31/2019 6:03 PM EDT [facility] HBsAg Negative Negative 10/31/2019 6:02 PM EDT [facility] Hep B Surface Ab, Qual Positive(A) Negative 10/31/2019 6:03 PM EDT [facility] Comment: These results are consistent with previous exposure and/or immunity to the hepatitis B virus antigen. Blood specimen (specimen) BLOOD SPECIMEN / Unknown 10/31/2019 10:10 AM EDT 10/31/2019 10:12 AM EDT Rinku Dupree MD LABORATORY Final Result [facility] [address] [facility] [place] [address] [facility] [address] [place] [address] * (ABNORMAL) LIPID PANEL BASIC (03/30/2017 2:00 PM EDT) Triglyceride 118 30 - 149 mg/dL 03/31/2017 8:48 AM EDT [facility] Cholesterol, Total 171 100 - 199 mg/dL 03/31/2017 8:48 AM EDT [facility] HDL Cholesterol 34(L) >55 mg/dL 7 8:48 AM EDT [facility] VLDL Cholesterol 24 6 - 40 mg/dL 03/31/2017 8:48 AM EDT [facility] LDL Cholesterol, Calculated 113 60 - 129 mg/dL 03/31/2017 8:48 AM EDT [facility] Fasting Time Unknown hrs 03/31/2017 5:26 AM EDT [facility] TC:HDL Ratio 5.03(H) 1.00 - 5.00 03/31/2017 8:48 AM EDT [facility] LDL:HDL Ratio 3.32 0.50 - 3.55 03/31/2017 8:48 AM EDT [facility] Non HDL Cholesterol 137 90 - 159 mg/dL 03/31/2017 8:48 AM EDT [facility] 03/30/2017 2:00 PM EDT 03/30/2017 11:00 PM EDT us [facility] Provider LABORATORY Final Result Performing Organization Address City/State/[facility] Co de Phone Number [facility] [address] [place] [address] from Last 3 Months or Most Recently Relevant to Health Maintenance Insurance Care Teams Waste Management Engineer Relationship Specialty Start Date End Date Stephanie Dumont PCP - General 04/20/23
--- OUTSIDE RECORDS SUMMARY | 2024-12-12 15:49 | XMS_ITS | Encounter Summary ---
Author Organization [facility] Address [address] [facility] [place] [address] Care Team Providers Care Glue Mill Operator Name Role Phone Stephanie Dumont MRI CT TECH Unavailable [phone] Stephanie Dumont NP Unavailable [phone] Wilfred Polanco MD Primary Care Provider [phone] Encounter Details Date Type Department Care Team ([facility] Contact Info) Description 05/29/2024 Clinisync Result Encounter N[facility] External Department Unsolicited Stephanie Dumont NP [address] [place] [address] Social History Tobacco Use Types [...] Care Team ([facility] Contact Info) Description 12/25/2024 11:00 AM EDT Office Visit [facility] [address] [place] [address] Stephanie Dumont NP [address] [place] [address] 04/02/2025 11:10 AM EDT Office Visit [facility] [address] [facility] 130 [place] [address] Nadia Mercado MD 112 [facility] 130 [place] [address] documented as of this encounter Procedures Procedure Name Priority Date/Time Associated Diagnosis Comments CT CHEST WO CON 05/29/2024 6:00 AM EST documented in this encounter Results * CT CHEST WO CON (05/29/2024 6:00 AM EST) Anatomical Region Laterality Modality Other 05/29/2024 6:00 AM EST Narrative 05/29/2024 6:03 AM EST [address] [address] [address] Scan Report Signed Patient: JASPREET LEO MR#: [id number] : 1950 Acct:[id number] Age/Sex: 73 / F ADM Date: 05/28/24 Loc: CT Attending Dr: Stephanie Dumont MRI CT TECH Ordering Physician: Stephanie Dumont NP Date of Service: 05/28/24 Procedure(s): CT chest wo con Accession Number(s): [id number] cc: Stephanie Dumont NP [address] [address] Patient Name: JASPREET LEO MRN: [id number] date: 1950 Sex: F Assigned Patient Location: CT Current Patient Location: Accession/Order Number: [id number] Exam Date: 05/28/2024 11:02 Report Date: 05/29/2024 06:00 At the request of: STEPHANIE DUMONT Procedure: CT chest wo con EXAMINATION: CT chest wo con HISTORY: Multiple Lung Nodules COMPARISON: CT chest 02/12/2024 TECHNIQUE: Axial, Coronal, and Sagittal images were created without the administration of IV contrast material. Dose reduction techniques were achieved by using automated exposure control and/or adjustment of mA and/or kV according to patient size and/or use of iterative reconstruction technique. FINDINGS: LUNGS: Numerous small, subcentimeter nodules scattered within the lungs. The only irregular nodule is within the posterior right upper lobe, 9 mm, (series 4 image 30). Calcified granuloma within posterior right lung base. No new nodules or acute infiltrates. PLEURA: No mass, effusion, or pneumothorax. VASCULATURE: No abnormality. BIJAL: No mass or pathologic adenopathy. MEDIASTINUM: No mass or pathologic adenopathy. CARDIAC: No enlargement, pericardial thickening, or pericardial effusion. Coronary Artery calcifications: Coronary calcifications are heavy. AORTA: No aneurysm or dissection. CHEST WALL: Stable prominent right thyroid lobe. No axillary mass or adenopathy BONES: No bone lesion or fracture. LIMITED ABDOMEN: No suspicious findings. Limited images of the upper abdomen. OTHER: Negative. CT/CT chest wo con IMPRESSION: 1. Stable appearance of numerous small nodules scattered within the lungs. Consider follow-up CT chest in 6 months to document continued stability and to help establish baseline. Electronically authenticated by: THA ZUNIGA Date: 05/29/2024 06:00 Dictated By: Tha Zuniga M.D. Signed By: 05/29/24602 DD/ 06 TD/TT: End Frazer: Procedure Note Radiology, Radiologist, MD - 05/29/2024 [place] [address] CT Scan Report Signed Patient: JASPREET LEO ZMR#: [id number] : 1950cct:[id number] Age/Sex: 73 / FADM Date: 05/28/24 Loc: CT Attending Dr: Stephanie Dumont NP Ordering Physician: Stephanie Dumont NP Date of Service: 05/28/24 Procedure(s): CT chest wo con Accession Number(s): [id number] cc: Stephanie Dumont NP [address] [place] [address] Patient Name: JASPREET LEO MRN: [facility]:[id number] date: 1950 Sex: F Assigned Patient Location: CT Current Patient Location: Accession/Order Number: [id number] Exam Date: 05/28/2024 11:02 Report Date: 05/29/2024 06:00 At the request of: STEPHANIE DUMONT Procedure: CT chest wo con EXAMINATION: CT chest wo con HISTORY: Multiple Lung Nodules COMPARISON: CT chest 02/12/2024 TECHNIQUE: Axial, Coronal, and Sagittal images were created without the administration of IV contrast material. Dose reduction techniques were achieved by using automated exposure control and/or adjustment of mA and/or kV according to patient size and/or use of iterative reconstruction technique. FINDINGS: LUNGS: Numerous small, subcentimeter nodules scattered within the lungs.The only irregular nodule is within the posterior right upper lobe, 9 mm,(series 4 image 30). Calcified granuloma within posterior right lung base. No new nodules or acute infiltrates. PLEURA: No mass, effusion, or pneumothorax. VASCULATURE: No abnormality. BIJAL: No mass or pathologic adenopathy. MEDIASTINUM: No mass or pathologic adenopathy. CARDIAC: No enlargement, pericardial thickening, or pericardial effusion. Coronary Artery calcifications: Coronary calcifications are heavy. AORTA: No aneurysm or dissection. CHEST WALL: Stable prominent right thyroid lobe. No axillary mass or adenopathy BONES: No bone lesion or fracture. LIMITED ABDOMEN: No suspicious findings. Limited images of the upperabdomen. OTHER: Negative. CT/CT chest wo con IMPRESSION: 1. Stable appearance of numerous small nodules scattered within the lungs. Consider follow-up CT chest in 6 months to document continued stabilityand to help establish baseline. Electronically authenticated by: THA ZUNIGA Date: 05/29/2024 06:00 Dictated By: Tha Zuniag M.D. Signed By:05/29/24602 DD/ 06 TD/TT: End Frazer: us Stephanie Dumont NP [facility] Final Result documented in this encounter Visit Diagnoses Not on filedocumented in this encounter Additional Health Concerns Assessment Noted Time PHQ-9 Depression Total Score: 2 05/14/20 10:42 AM EST documented as of this encounter Care Teams Glue Mill Operator Relationship Specialty Start Date End Date Stephanie Dumont NP [address] [place] [address] PCP - [facility] 10/09/23 12/07/70 Wilfred Polanco MD [address] [place] [address] PCP - General Family Medicine 05/13/24 Stephanie Dumont NP [address] [place] [address] Nurse Practitioner Family Medicine 04/09/23 documented as of this encounter
--- OUTSIDE RECORDS SUMMARY | 2024-12-12 15:49 | XMS_ITS | Encounter Summary ---
Author Organization [facility] Address [address] [facility] [place] [address] Care Team Providers Care Skin Toggler Name Role Phone Stephanie Dumont NP Unavailable [phone] Wilfred Polanco MD Primary Care Provider [phone] Stephanie Dumont NP Unavailable [phone] Wilfred Polanco MD Primary Care Provider [phone] Encounter Details Date Type Department Care Team (Late Contact Info) Description 11/27/2023 Orders Only [facility] [address] [place] [address] Stephanie Dumont NP [address] [place] [address] Social History Tobacco Use Types Packs/Day [...] Upcoming Encounters Date Type Department Care Team ([facility] Contact Info) Description 12/25/2024 11:00 AM EDT Office Visit [facility] [address] [place] [address] Stephanie Dumont NP [address] [place] [address] 04/02/2025 11:10 AM EDT Office Visit [facility] [address] [facility] [address] [place] [address] Nadia Mercado MD [address] [facility] [address] [place] [address] documented as of this encounter Procedures Procedure Name Priority Date/Time Associated Diagnosis Comments MISCELLANEOUS LAB TEST Routine 11/24/2023 8:28 AM EDT documented in this encounter Results * - Miscellaneous Test (11/24/2023 8:28 AM EDT) Stephanie Dumont RETAIL ADVISOR LAB BLOOD ORDERABLES Final Resu lt documented in this encounter Visit Diagnoses Not on filedocumented in this encounter Care Teams Skin Toggler Relationship Specialty Start Date End Date Wilfred Polanco MD [address] [place] [address] PCP - General Family Medicine 08/17/23 04/23/24 Stephanie Dumont NP [address] [place] [address] PCP - [facility] 10/09/23 12/07/70 Wilfred Polanco MD [address] [place] [address] PCP - General Family Medicine 05/13/24 Stephanie Dumont NP [address] [place] [address] Nurse Practitioner Family Medicine 04/09/23 documented as of this encounter
--- OUTSIDE RECORDS SUMMARY | 2024-12-12 15:49 | XMS_ITS | Encounter Summary ---
Author Organization [facility] Address [address] [facility] [place] [address] Care Team Providers Care Finish Patcher Name Role Phone Stephanie Dumont NP Unavailable [phone] Wilfred Polanco MD Primary Care Provider [phone] Stephanie Dumont HOSPITAL UNIT COORDINATOR Unavailable [phone] Wilfred Polanco MD Primary Care Provider [phone] Encounter Details Date Type Department Care Team (Late Contact Info) Description 11/29/2023 Orders Only [facility] [address] [address] Shaikh Biswas MD [address] [address] Social History Tobacco Use Types Packs/Day Years [...] Upcoming Encounters Date Type Department Care Team ([facility] Contact Info) Description 12/25/2024 11:00 AM EDT Office Visit [facility] [address] [address] Stephanie Dumont NP [address] [place] [address] 04/02/2025 11:10 AM EDT Office Visit [facility] [address] [facility] [address] [place] [address] Nadia Mercado MD [address] [facility] [address] [place] [address] documented as of this encounter Procedures Procedure Name Priority Date/Time Associated Diagnosis Comments XR CHEST 1 VIEW Routine 11/29/2023 8:36 AM EDT documented in this encounter Results * XR chest 1 view (11/29/2023 8:36 AM EDT) Anatomical Region Laterality Modality Chest Radiographic Maryam ging us Shaikh True JAIMES IMG XR PROCEDURES Final Result documented in this encounter Visit Diagnoses Not on filedocumented in this encounter Care Teams Finish Patcher Relationship Specialty Start Date End Date Wilfred Polanco MD [address] [place] [address] PCP - General Family Medicine 08/17/23 04/23/24 Stephanie Dumont NP [address] [place] [address] PCP - [facility] 10/09/23 12/07/70 Wilfred Polanco MD [address] [place] [address] PCP - General Family Medicine 05/13/24 Stephanie Dumont NP [address] [place] [address] Nurse Practitioner Family Medicine 04/09/23 documented as of this encounter
--- OUTSIDE RECORDS SUMMARY | 2024-12-12 15:49 | XMS_ITS | Encounter Summary ---
Author Organization [facility] tem Address [id number] [address] [place] [address] Care Team Providers Care Duct Layer Supervisor Name Role Phone Stephanie Dumont APRN-LOSS PREVENTION/SAFETY DISTRICT MANAGER Primary Care Provider Reason for Visit * Reason Onset Date Comments GENETICS 09/11/2024 CLERICAL Encounter Details Date Type Department Care Team (Late st Contact Info) Description 09/11/2024 Telephone [facility] -[facility]ETICS [address] [facility] [address] [place] [address] Nina Leon, [facility] [address] [facility] [address] [place] [address] GENETICS (CLERICAL) Social History Tobacco Use Types Packs/Day Years [...] on file documented as of this encounter Miscellaneous Notes * Telephone Encounter - Bina Iraheta - 09/11/2024 2:34 PM EST 09/11/24 Called pt re ref, she has declined due to cost/high copay. Offered self- pay rate. ALESIA sent. sj documented in this encounter Plan of Treatment Not on file documented as of this encounter Visit Diagnoses Not on filedocumented in this encounter Care Teams Duct Layer Supervisor Relationship Specialty Start Date End Date Stephanie Dumont, COSMETIC ASSEMBLER-LOSS PREVENTION/SAFETY DISTRICT MANAGER PCP - General Nurse Practitioner 05/02/24 documented as of this encounter
--- OUTSIDE RECORDS SUMMARY | 2024-12-12 15:49 | XMS_ITS | Encounter Summary ---
Author Organization [facility] Address [address] [place] [address] Phone Care Team Providers Care Prepper Name Role Phone Rinku Dupree MD Unavailable [phone] Stephanie Dumont APRN-APPOINTMENT SPECIALIST Primary Care Provider Encounter Details Date Type Department Care Team (Late st Contact Info) Description 11/27/2024 Scanned Document [facility] [address] [place] [address] Laverne Mendoza, AUD, CCC-A [address] [place] [address] Social History Tobacco Use Types Packs/Day Years Used Date Smoking Tobacco: Every Day Cigarettes 0.3 45 Passive Smoke Exposure: Never Smokeless Tobacco: Never Alcohol Use Standard Drinks/Week Comments Never 0 (1 standard drink = 0.6 oz pur e alcohol) PHQ-2 Answer Date Recorded Patient Health Questionnaire-2 Score 0 11/26/2024 Comments Unknown Sex and Gender Information Value Date Recorded Sex Assigned at Not on file Legal Sex Female 11:13 AM EDT Gender Identity Not on file Sexual Orientation Not on file COVID-19 Exposure Response Date Recorded In the last 10 days, have yo u been in contact with someone who was confirmed or suspected to have Coronavirus/COVID-19? No / Unsure 11/26/2024 2:01 PM EDT documented as of this encounter Plan of Treatment Upcoming Encounters Date Type Department Care Team (Latest Contact Info) Description 02/05/2025 5:45 AM EDT Hospital Encounter [facility] [place] [address] [place] [address] [place] [address] [place] [address] 02/05/2025 7:15 AM EDT - 02/05/2025 10:45 AM EDT Surgery [facility] [place] [address] [place] [address] [place] [address] [place] [address] Left Side Transcanal Tympanoplasty; Ossiculoplasty; Cartilage Graft [59046 (CPT ) +1 more] Scheduled Procedures Name Priority Associated Diagnoses Date/Ti me TYMPANOPLASTY, WITH OSSICULOPLASTY 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
--- OUTSIDE RECORDS SUMMARY | 2024-12-12 15:49 | XMS_ITS | Clinical Summary ---
Author Organization [facility] Address [address] [place] [address] Phone Care Team Providers Care Verifying Specialist Name Role Phone Rinku Dupree MD Unavailable [phone] Stephanie Dumont PLANT ANATOMIST-SPINNING LATHE OPERATOR HYDRAULIC Primary Care Provider Allergies Active Allergy Reactions Criticality Noted Date Comments Diphtheria,Pertussis (Acellu lar),Tetanus Vaccine Rash Low 06/06/2023 Vancomycin Other 11/14/2023 Flushing Medications ergocalciferol (Vitamin D-2) 1.25 MG (81982 UT) capsule Take 1 capsule (1.25 mg) by mouth once a week. 3 Active fostamatinib (Tavalisse) 100 mg tablet tablet Take 1 tablet (100 mg) by mouth twice a day. 2 Active hydroCHLOROthia zide (HYDRODiuril) 25 mg tablet Take 1 tablet (25 mg) by mouth once daily. Active losartan (Cozaar) 25 mg tablet Take 2 tablets (50 mg) by mouth. 2 Active spironolactone (Aldactone) 25 mg tablet Take 1 tablet (25 mg) by mouth once daily. 3 Active alendronate (Fosamax) 70 mg tablet 1 tablet (70 mg) every 7 days. 3 Active ciprofloxacin-d examethasone (CiproDEX) otic suspensionIndic ations:Choleste atoma of left ear Administer 4 drops into affected ear(s) 2 times a day. 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 11/26/2024 Encounter for postoperative care 02/06/2024 HTN (hypertension) 12/18/2023 Cholesteatoma of left ear 11/14/2023 Encounters Date Type Department Care Team Description 11/27/2024 Scanned Document [facility] [address] [place] [address] Laverne Mendoza AUD, CCC-A 11/26/2024 3:00 PM EDT Office Visit [facility] [address] [place] [address] Susanna Wright MD Cholesteatoma of left ear (Primary Dx); 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; Preoperative clearance; Thrombocytopenia 11/26/2024 2:30 PM EDT Clinical Support [facility] [address] [place] [address] Laverne Mendoza AUD, CCC-A 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); Sensorineural hearing loss (SNHL) of right ear with restricted hearing of left ear 11/26/2024 Travel from Last 3 Months Social History Tobacco Use Types Packs/Day Years Used Date Smoking Tobacco: Every Day Cigarettes 0.3 45 Passive Smoke Exposure: Never Smokeless Tobacco: Never Tobacco Cessation:Ready to Q [...] No / Unsure 11/26/2024 2:01 PM EDT Last Filed Vital Signs Vital Sign Reading Time Taken Comments Blood Pressure 131/57 12/18/2023 2:20 PM EDT Pulse 79 12/18/2023 2:20 PM EDT Temperature 36.2 C (97.2 F) 12/18/2023 2:20 PM EDT Respiratory Rate 19 12/18/2023 2:20 PM EDT Oxygen Saturation 96% 12/18/2023 2:20 PM EDT Inhaled Oxygen Concentration - - Weight 87.5 kg (193 lb) 11/26/2024 3:28 PM EDT Height 160 cm (5' 3 ) 02/06/2024 2:30 PM EDT Body Mass Index 34.19 02/06/2024 2:30 PM EDT Plan of Treatment Upcoming Encounters Date Type Department Care Team (Latest Contact Info) Description 02/05/2025 5:45 AM EDT Hospital Encounter [facility] [place] [address] [place] [address] [place] [address] [place], [place] [id number] 02/05/2025 7:15 AM EDT - 02/05/2025 10:45 AM EDT Surgery [facility] [place] [address] [place] [address] [place] [address] [place] [address] Left Side Transcanal Tympanoplasty; Ossiculoplasty; Cartilage Graft [55392 (CPT ) +1 more] Scheduled Procedures Name Priority Associated Diagnoses Date/Ti me TYMPANOPLASTY, WITH OSSICULOPLASTY 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 02/05/2025 7:15 AM EDT Health Maintenance Due Date Last Done Comments Bone Density Scan 1950 CT Colonography 1950 FIT-DNA (Cologuard) 1950 FIT 1950 Lipid Panel 1950 Medicare Annual Wellness Visit (AWV) 1950 Sigmoidoscopy 1950 Hepatitis C Screening 1968 DTaP/Tdap/Td Vaccines (1 - Tdap) 1972 Zoster Vaccines (1 of 2) 2000 RSV High Risk: (Elderly (60+) or Population) (1 - Risk 60-74 years 1-dose series) 2010 COVID-19 Vaccine (2023- season) 2024 05/17/2024, 05/26/2023, 02/05/2022, Additional history exists Mammogram 04/17/2025 04/17/2024, 03/2024, 04/17/2024, Additional history exists Diabetes: Hemoglobin A1C 04/18/2025 04/18/2024 Colonoscopy 07/25/2032 07/25/2022, 07/25/2022 Colorectal Cancer Screening 07/25/2032 Pneumococcal Vaccine Completed 04/01/2019, 03/23/2018, 09/06/2016 Influenza Vaccine Completed 04/02/2024, , 04/20/2022, Additional history exists HIB Vaccines Aged Out No longer eligi ble based on patient's age to complete this topic HPV Vaccines Aged Out No longer eligi ble based on patient's age to complete this topic Hepatitis A Vaccines Aged Out No long er eligible based on patient's age to complete this topic Hepatitis B Vaccines Aged Out No long er eligible based on patient's age to complete this topic IPV Vaccines Aged Out No longer eligi ble based on patient's age to complete this topic Meningococcal Vaccine Aged Out No garrett wil eligible based on patient's age to complete this topic Rotavirus Vaccines Aged Out No longer eligible based on patient's age to complete this topic Goals Goal Patient Goal Type Associated Problems Recent Progress Patient-Stated? Author Autogenerat ed Goal Care Plan Autogenerated Problem No Susanna Wright MD Additional Health Concerns Active Problems Noted Date Diagnosed Date Autogenerated Problem 12/02/2024 Insurance [employer] MEDICARE [employer] MEDICARE Care Teams Verifying Specialist Relationship Specialty Start Date End Date Stephanie Dumont, PLANT ANATOMIST-SPINNING LATHE OPERATOR HYDRAULIC [address] [place] [address] PCP - General 11/29/24 Rinku Dupree MD [address] [place] [address] Referring Physician Hematology and Oncology 11/29/24
--- OUTSIDE RECORDS SUMMARY | 2024-12-12 15:49 | XMS_ITS | Encounter Summary ---
Author Organization [facility] Address [address] [facility] [place] [address] Care Team Providers Care Server Service Assistant Name Role Phone Stephanie Dumont CUSHION PADDER Unavailable [phone] Stephanie Dumont CUSHION PADDER Unavailable [phone] Wilfred Polanco MD Primary Care Provider Encounter Details Date Type Department Care Team ([facility] Contact Info) Description 05/02/2024 Orders Only [facility] [address] [place] [address] Stephanie Dumont, JORDI [address] [place] [address] Social History Tobacco Use Types Packs/Day Years [...] Upcoming Encounters Date Type Department Care Team ([facility] Contact Info) Description 12/25/2024 11:00 AM EDT Office Visit [facility] [address] [place] [address] Stephanie Dumont, JORDI [address] [place] [address] 04/02/2025 11:10 AM EDT Office Visit [facility] [address] [facility] [address] [place] [address] Nadia Mercado MD [address] [facility] [address] [place] [address] documented as of this encounter Procedures Procedure Name Priority Date/Time Associated Diagnosis Comments BIOPSY THYROID Routine 05/02/2024 4:27 PM EDT documented in this encounter Results * Biopsy thyroid (05/02/2024 4:27 PM EDT) us Stephanie Dumont CUSHION PADDER IN CLINIC/BEDSIDE ORDERABLES Fi nal Result documented in this encounter Visit Diagnoses Not on filedocumented in this encounter Care Teams Server Service Assistant Relationship Specialty Start Date End Date Stephanie Dumont NP [address] [place] [address] PCP - [facility] 10/09/23 12/07/70 Wilfred Polanco MD [address] [place] [address] PCP - General Family Medicine 05/13/24 Stephanie Dumont NP [address] [place] [address] Nurse Practitioner Family Medicine 04/09/23 documented as of this encounter
--- OUTSIDE RECORDS SUMMARY | 2024-12-12 15:50 | XMS_ITS | Encounter Summary ---
Author Organization [facility] Address [address] [place] [address] Care Team Providers Care Seed Sorter Name Role Phone Stephanie Dumont NP Unavailable [phone] Wilfred Polanco MD Primary Care Provider [phone] Stephanie Dumont FORENSIC INVESTIGATOR Unavailable [phone] Wilfred Polanco MD Primary Care Provider [phone] Encounter Details Date Type Department Care Team ([facility] Contact Info) Description 09/11/2023 Clinisync Result Encounter [facility] External Department Unsolicited Provider, Generic External Data Social History Tobacco Use Types Packs/Day Years [...] Upcoming Encounters Date Type Department Care Team ([facility] Contact Info) Description 12/25/2024 11:00 AM EDT Office Visit [facility] [address] [place] [address] Stephanie Dumont NP [address] [place] [phone] 04/02/2025 11:10 AM EDT Office Visit [facility] [address] [place] [phone] Nadia Mercado MD [address] [place] [address] documented as of this encounter Procedures Procedure Name Priority Date/Time Associated Diagnosis Comments TBH URINE T PROTEIN CREAT RATIO Routine 09/11/2023 12:31 PM EST [facility] URINALYSIS, WITH MICROSCOPIC Routine 09/11/2023 12:31 PM EST TBH VITAMIN D 25 [place] Routine 09/11/2023 1 2:27 PM EST METRO IRON AND TIBC Routine 09/11/2023 1 2:27 PM EST [facility] PTH, INTRAOPERATIVE Routine 09/11/2023 12:27 PM EST [facility] CBC WITH PLATELET NO DIFFERENTIAL Routine 09/11/2023 12:27 PM EST [facility] FERRITIN Routine 09/11/2023 12:27 PM EST ALL URIC ACID Routine 09/11/2023 12:27 PM EST ALL RENAL FUNCTION PANEL Routine 09/11/2023 12:27 PM EST ALL MAGNESIUM Routine 09/11/2023 12:27 PM EST US RENAL BI 09/11/2023 12:18 PM EST documented in this encounter Results * (ABNORMAL) [facility] URINALYSIS, WITH MICROSCOPIC (09/11/2023 12:31 PM EST) COLOR URINE LT. YELLOW YELLOW TBH CLARITY URINE CLEAR CLEAR TBH SPECIFIC GRAVITY URINE 1.010 1.005 - 1.025 TBH PH URINE 5.5 5.0 - 9.0 TBH PROTEIN URINE NEGATIVE NEG/TRACE mg/dL TBH GLUCOSE URINE UA NEGATIVE NEGATIVE mg/dL TBH BILIRUBIN URINE NEGATIVE NEGATIVE TBH KETONES URINE NEGATIVE NEGATIVE mg/dL TBH BLOOD URINE TRACE-I NEGATIVE TBH NITRITE URINE NEGATIVE NEGATIVE TBH UROBILINOGEN URINE 0.2 0.2 - 1.0 EU/dL TBH LEUKOCYTE ESTERASE URINE NEGATIVE NEGATIVE TBH TBH WBC NONE SEEN NONE SEEN #/HPF TBH TBH RBC 0-2 0 - 2 #/HPF TBH BACTERIA URINE TRACE(A) NONE SEEN #/HPF TBH MUCUS URINE NONE SEEN NONE SEEN TBH SQUAMOUS EPITHELIAL CELL URINE FEW(A) NONE/RARE #/LPF TBH 09/11/2023 12:3 1 PM EST 09/11/2023 1:59 PM EST Narrative CLINISYNC - 09/11/2023 2:03 PM EST Generic External Data Provider CLINISYNC F inal Result Performing Organization Address City/[facility]/ZIP Co de Phone Number JULIAN TB * TBH URINE T PROTEIN CREAT RATIO (09/11/2023 12:31 PM EST) TOTAL PROTEIN URINE RANDOM <6.0 <=11.9 mg/dL TBH CREATININE URINE RANDOM 26.05 20.00 - 300.00 mg/dL TBH PROTEIN CREATININE RATIO URINE 0.23 TBH 09/11/2023 12:3 1 PM EST 09/11/2023 1:13 PM EST Narrative CLINISYNC - 09/11/2023 1:13 PM EST Generic External Data Provider CLINISYNC F inal Result Performing Organization Address City/[facility]/ZIP Co de Phone Number [facility] * [facility] PTH, INTRAOPERATIVE (09/11/2023 12:27 PM EST) PTH, INTACT 38 15 - 65 pg/mL TBH Comment: Performed at: [address] [id number] Medical Territory Manager: Danilo Garrett PhD, Phone: [phone] 09/11/2023 12:2 7 PM EST 09/11/2023 12:31 PM EST Narrative CLINISYNC - 09/12/2023 11:09 AM EST Generic External Data Provider CLINISYNC F inal Result Performing Organization Address [facility] Phone Number CLINROZNC TB * TBH VITAMIN D 25 [place] (09/11/2023 12:27 PM EST) VITAMIN D 27.9 ng/mL TBH Comment: <20 ng/mL Vit D deficient 20-<30 ng/mL Vit D insufficient 30-100 ng/mL Vit D sufficient >100 ng/mL Potential Toxicity 09/11/2023 12:2 7 PM EST 09/11/2023 12:31 PM EST Narrative CLINISYNC - 09/11/2023 1:57 PM EST Generic External Data Provider CLINISYNC F ina Result Performing Organization Address [facility] Phone Number CLINFADI TB * [facility] FERRITIN (09/11/2023 12:27 PM EST) FERRITIN 80.0 8.0 - 252.0 ng/mL TB 09/11/2023 12:2 7 PM EST 09/11/2023 12:31 PM EST Narrative CLINISYNC - 09/11/2023 1:57 PM EST Generic External Data Provider CLINISYNC F inal Result Performing Organization Address [facility] Phone Number CLINFADI TB * METRO IRON AND TIBC (09/11/2023 12:27 PM EST) TBH IRON 71.0 50.0 - 170.0 ug/dL TBH TBH TOTAL IRON BINDING CAPACITY 348.0 250.0 - 450.0 ug/dL TBH TBH PERCENT IRON SATURATION 20.4 % TBH 09/11/2023 12:2 7 PM EST 09/11/2023 12:31 PM EST Narrative CLINISYNC - 09/11/2023 1:22 PM EST Generic External Data Provider CLINISYNC F inal Result Performing Organization Address [facility]/State/ZIP Co de Phone Number [facility] * ALL MAGNESIUM (09/11/2023 12:27 PM EST) MAGNESIUM 2.1 1.8 - 2.4 mg/dL TB 09/11/2023 12:2 7 PM EST 09/11/2023 12:31 PM EST Narrative CLINISYNC - 09/11/2023 12:54 PM EST Generic External Data Provider CLINISYNC F inal Result Performing Organization Address [facility] Co de Phone Number [facility] * ALL URIC ACID (09/11/2023 12:27 PM EST) URIC ACID 5.8 2.6 - 6.0 mg/dL TB 09/11/2023 12:2 7 PM EST 09/11/2023 12:31 PM EST Narrative CLINISYNC - 09/11/2023 12:54 PM EST Generic External Data Provider CLINISYNC F inal Result Performing Organization Address [facility] Co de Phone Number [facility] * (ABNORMAL) ALL RENAL FUNCTION PANEL (09/11/2023 12:27 PM EST) SODIUM 137 136 - 145 mmol/L TBH POTASSIUM 4.4 3.5 - 5.1 mmol/L TBH CHLORIDE 102 98 - 107 mmol/L TBH CARBON DIOXIDE 27.5 21.0 - 32.0 mmol/L TBH ANION GAP 11.9 TBH GLUCOSE 92 74 - 106 mg/dL TB BLOOD UREA NITROGEN 26.0(H) 7.0 - 18.0 mg/dL TBH CREATININE 1.09(H) 0.55 - 1.02 mg/dL TBH TBH EGFR-AF TAJIK 60 >=60 TBH TBH EGFR-NON AF TAJIK 49(L) >=60 TBH BUN CREATININE RATIO 23.9 TBH CALCIUM 8.6 8.5 - 10.1 mg/dL TBH PHOSPHORUS 3.0 2.6 - 4.7 mg/dL TBH ALBUMIN LEVEL 3.1(L) 3.4 - 5.0 g/dL TBH 09/11/2023 12:2 7 PM EST 09/11/2023 12:31 PM EST Narrative CLINISYNC - 09/11/2023 12:54 PM EST Generic External Data Provider CLINISYNC F inal Result CLINISYNC TB * (ABNORMAL) [facility] CBC WITH PLATELET NO DIFFERENTIAL (09/11/2023 12:27 PM EST) [facility] TB WBC 5.1 4.0 - 11.0 10 3/uL TBH TBH RBC 3.25(L) 4.20 - 5.40 10 6/uL TBH TBH HGB 10.2(L) 12.0 - 16.0 g/dL TBH TBH HCT 33.1(L) 36.0 - 48.0 % TBH TBH MCV 101.8(H) 81.0 - 99.0 fL TBH TBH MCH 31.4 26.7 - 34.0 pg TBH TBH MCHC 30.8 29.9 - 35.2 g/dL TBH TBH RDW 14.1 11.0 - 15.0 % TBH TBH PLT 131(L) 150 - 450 10 3/uL TBH TBH MPV 9.6 9.5 - 13.5 fL TBH 09/11/2023 12:2 7 PM EST 09/11/2023 12:53 PM EST Narrative CLINISYNC - 09/11/2023 12:53 PM EST us Generic External Data Provider CLINISYNC F inal Result CLINISYNC TB * US RENAL BI (09/11/2023 12:18 PM EST) Anatomical Region Laterality Modality Other 09/11/2023 12:1 8 PM EST Narrative 09/11/2023 12:21 PM EST The [address] [address] Ultrasound Report Signed Patient: JASPREET LEO MR#: [id number] : 1950 Acct:[id number] Age/Sex: 72 / F ADM Date: 09/11/23 Loc: US Attending Dr: CATALINA ARRIOLA Ordering Physician: CATALINA ARRIOLA Date of Service: 09/11/23 Procedure(s): US renal BI Accession Number(s): [id number] cc: Shaikh Catrina Biswas; CATALINA ARRIOLA [place] [address] Patient Name: JASPREET LEO MRN: [id number] date: 1950 Sex: F Assigned Patient Location: US Current Patient Location: US Accession/Order Number: [id number] Exam Date: 09/11/2023 11:30 Report Date: 09/11/2023 12:18 At the request of: CATALINA ARRIOLA Procedure: US renal BI EXAMINATION: US renal BI HISTORY: essential hypertension I10, lupus M32.9 COMPARISON: No relevant comparison available. TECHNIQUE: Ultrasound examination was performed of the bladder. FINDINGS: Right Kidney: Normal in size, contour and echotexture. 2.3 cm area of anechoic echogenicity lower pole, simple cyst. The cortex measures 1.1 cm. No solid cortical mass, hydronephrosis or obstructing nephrolithiasis Height: 3.6 cm Length: 11.1 cm Width: 4.9 cm Left Kidney: Normal in size, contour and echotexture. 2.0 cm area of anechoic echogenicity lower pole, simple cyst. The cortex measures 1.1 cm. No solid cortical mass or hydronephrosis. 3 mm nonobstructing nephrolith Height: 6.2 cm Length: 10.6 cm Width: 4.6 cm Urinary bladder measures 134 cc US/US renal BI IMPRESSION: Bilateral renal cortical cysts Electronically authenticated by: SAMMIE SHEPPARD Date: 09/11/2023 12:18 Dictated By: Sammie Sheppard M.D. Signed By: 09/11/23 1221 DD/ 1218 TD/TT: Talcer: Procedure Note Radiology, Radiologist, - 09/11/2023 [place] [address] Ultrasound Report Signed Patient: JASPREET LEO ZMR#: [id number] : 1950cct:[id number] Age/Sex: 72 / FADM Date: 09/11/23 Loc: US Attending Dr: CATALINA ARRIOLA Ordering Physician: CATALINA ARRIOLA Date of Service: 09/11/23 Procedure(s): US renal BI Accession Number(s): [id number] cc: Shaikh Catrina Biswas; CATALINA ARRIOLA The [place] [id number] Patient Name: JASPREET LEO MRN: [id number] date: 1950 Sex: F Assigned Patient Location: US Current Patient Location: US Accession/Order Number: [id number] Exam Date: 09/11/2023 11:30 Report Date: 09/11/2023 12:18 At the request of: CATALINA ARRIOLA Procedure: US renal BI EXAMINATION: US renal BI HISTORY: essential hypertension I10, lupus M32.9 COMPARISON: No relevant comparison available. TECHNIQUE: Ultrasound examination was performed of the bladder. FINDINGS: Right Kidney: Normal in size, contour and echotexture. 2.3 cm area ofanechoic echogenicity lower pole, simple cyst. The cortex measures 1.1 cm. No solid cortical mass, hydronephrosis or obstructing nephrolithiasis Height: 3.6 cm Length: 11.1 cm Width: 4.9 cm Left Kidney: Normal in size, contour and echotexture. 2.0 cm area ofanechoic echogenicity lower pole, simple cyst. The cortex measures 1.1 cm. No solid cortical mass or hydronephrosis. 3 mm nonobstructing nephrolith Height: 6.2 cm Length: 10.6 cm Width: 4.6 cm Urinary bladder measures 134 cc US/US renal BI IMPRESSION: Bilateral renal cortical cysts Electronically authenticated by: SAMMIE SHEPPARD Date: 09/11/2023 12:18 Dictated By: Sammie Sheppard M.D. Signed By:09/11/23 1221 DD/ 1218 TD/TT: Talcer: us Generic External Data Provider CLINISYNC IMAGING Final Result documented in this encounter Visit Diagnoses Not on filedocumented in this encounter Care Teams Seed Sorter Relationship Specialty Start Date End Date Wilfred Polanco MD [address] [place] [phone] PCP - General Family Medicine 08/17/23 04/23/24 Stephanie Dumont NP [address] [place] [phone] PCP - [facility] 10/09/23 12/07/70 Wilfred Polanco MD [address] [place] [phone] PCP - General Family Medicine 05/13/24 Stephanie Dumont NP [address] [place] [phone] Nurse Practitioner Family Medicine 04/09/23 documented as of this encounter
--- OUTSIDE RECORDS SUMMARY | 2024-12-12 15:50 | XMS_ITS | Encounter Summary ---
Author Organization [facility] Address [address] [facility] [place] [address] Care Team Providers Care Warning Coordination Meteorologist Name Role Phone Stephanie Dumont NP Unavailable [phone] Wilfred Polanco MD Primary Care Provider [phone] Stephanie Dumont NP Unavailable [phone] Wilfred Polanco MD Primary Care Provider [phone] Encounter Details Date Type Department Care Team ([facility] Contact Info) Description 04/04/2024 Clinisync Result Encounter [facility] External Department Unsolicited Stephanie Dumont NP [address] [place] [address] Social History Tobacco Use Types Packs/Day Years [...] Upcoming Encounters Date Type Department Care Team ([facility] Contact Info) Description 12/25/2024 11:00 AM EDT [facility] [address] [place] [address] Stephanie Dumont NP [address] [place] [phone] 04/02/2025 11:10 AM EDT Office Visit [facility] [address] [facility] [address] [place] [address] Nadia Mercado MD [address] [facility] [address] [place] [address] documented as of this encounter Procedures Procedure Name Priority Date/Time Associated Diagnosis Comments US THYROID 04/04/2024 1:26 PM EDT documented in this encounter Results * US thyroid (04/04/2024 1:26 PM EDT) Anatomical Region Laterality Modality Head, Neck Ultrasound 04/04/2024 1:26 PM EDT Narrative 04/04/2024 1:28 PM EDT [address] [address] Ultrasound Report Signed Patient: JASPREET LEO MR#: [id number] : 1950 Acct:[id number] Age/Sex: 73 / F ADM Date: 04/03/24 Loc: US Attending Dr: Stephanie Dumont NP Ordering Physician: Stephanie Dumont NP Date of Service: 04/03/24 Procedure(s): US thyroid Accession Number(s): [id number] cc: Stephanie Dumont NP [address] [address] Patient Name: JASPREET LEO MRN: [id number] date: 1950 Sex: F Assigned Patient Location: US Current Patient Location: Accession/Order Number: [id number] Exam Date: 04/03/2024 10:02 Report Date: 04/04/2024 13:26 At the request of: STEPHANIE DUMONT Procedure: US thyroid EXAMINATION: US thyroid HISTORY: Thyroid Nodule E04.1 COMPARISON: Ultrasound thyroid 02/13/2014 FINDINGS: RIGHT LOBE: Slightly heterogeneous echotexture. 1.3 cm TR 4 nodule within superior pole. 2.0 cm TR 4 nodule within mid body. Lobe size: 4.5 x 1.7 x 1.8 cm LEFT LOBE: Slightly heterogeneous echotexture. 2.1 cm TR 3 nodule within mid body. Incidental colloid cyst within superior pole. Lobe size: 4.3 x 1.9 x 1.9 cm ISTHMUS: Slightly heterogeneous echotexture. Thickness: 1 mm US/US thyroid IMPRESSION: 1. Within the right thyroid lobe is a 1.3 cm and a 2.0 cm TR 4 nodule. The larger nodule should be considered for fine-needle aspiration. TR4 (moderately suspicious): If > 1.0 cm, follow-up ultrasound in 1, 2, 3, and 5 years. If > 1.5 cm, fine needle aspiration (FNA). Electronically authenticated by: SIMON ZUNIGA Date: 04/04/2024 13:26 Dictated By: Simon Zuniga M.D. Signed By: 04/04/24 1328 DD/ TD/TT: Chrome Tanner: Procedure Note Radiology, Radiologist, MD - 04/04/2024 [place] [address] Ultrasound Report Signed Patient: JASPREET LEO ZMR#: [id number] : 1950cct:[id number] Age/Sex: 73 / FADM Date: 04/03/24 Loc: US Attending Dr: Stephanie Dumont NP Ordering Physician: Stephanie Dumont NP Date of Service: 04/03/24 Procedure(s): US thyroid Accession Number(s): [id number] cc: Stephanie Dumont NP [place] [address] Patient Name: JASPREET LEO MRN: [id number] date: 1950 Sex: F Assigned Patient Location: US Current Patient Location: Accession/Order Number: [id number] Exam Date: 04/03/2024 10:02 Report Date: 04/04/2024 13:26 At the request of: STEPHANIE DUMONT Procedure: US thyroid EXAMINATION: US thyroid HISTORY: Thyroid Nodule E04.1 COMPARISON: Ultrasound thyroid 02/13/2014 FINDINGS: RIGHT LOBE: Slightly heterogeneous echotexture. 1.3 cm TR 4 nodule within superior pole. 2.0 cm TR 4 nodule within mid body. Lobe size: 4.5 x 1.7 x 1.8 cm LEFT LOBE: Slightly heterogeneous echotexture. 2.1 cm TR 3 nodule withinmid body. Incidental colloid cyst within superior pole. Lobe size: 4.3 x 1.9 x 1.9 cm ISTHMUS: Slightly heterogeneous echotexture. Thickness: 1 mm US/US thyroid IMPRESSION: 1. Within the right thyroid lobe is a 1.3 cm and a 2.0 cm TR 4 nodule. The larger nodule should be considered for fine-needle aspiration. TR4 (moderately suspicious): If > 1.0 cm, follow-up ultrasound in 1, 2, 3,and 5 years. If > 1.5 cm, fine needle aspiration (FNA). Electronically authenticated by: SIMON ZUNIGA Date: 04/04/2024 13:26 Dictated By: Simon Zuniga M.D. Signed By:04/04/24 1328 DD/ 1326 TD/TT: Chrome Tanner: us Stephanie Dumont NP IMG US PROCEDURES Final Result documented in this encounter Visit Diagnoses Not on filedocumented in this encounter Care Teams Warning Coordination Meteorologist Relationship Specialty Start Date End Date Wilfred Polanco MD [address] [place] [address] PCP - General Family Medicine 08/17/23 04/23/24 Stephanie Dumont NP [address] [place] [address] PCP - [facility] 10/09/23 12/07/70 Wilfred Polanco MD [address] [place] [address] PCP - General Family Medicine 05/13/24 Stephanie Dumont NP [address] [place] [address] Nurse Practitioner Family Medicine 04/09/23 documented as of this encounter
--- OUTSIDE RECORDS SUMMARY | 2024-12-12 15:50 | XMS_ITS | Encounter Summary ---
Author Organization [facility] Address [address] [facility] [place] [address] Care Team Providers Care House Mover Name Role Phone Stephanie Dumont NP Unavailable [phone] Wilfred Polanco MD Primary Care Provider [phone] Stephaine Dumont NP Unavailable [phone] Wilfred Polanco MD Primary Care Provider [phone] Encounter Details Date Type Department Care Team ([facility] Contact Info) Description 03/22/2024 Clinisync Result Encounter [facility] External Department Unsolicited Stephanie Dumont NP [address] [address] Social History Tobacco Use Types Packs/Day Years [...] Upcoming Encounters Date Type Department Care Team ([facility] Contact Info) Description 12/25/2024 11:00 AM EDT [facility] [address] [place] [address] Stephanie Dumont NP [address] [place] [address] 04/02/2025 11:10 AM EDT Office Visit [facility] [address] [facility] [address] [place] [address] Nadia Mercado MD [address] [facility] [address] [place] [address] documented as of this encounter Procedures Procedure Name Priority Date/Time Associated Diagnosis Comments CA ECHO DOPPLER COMPLETE 03/22/2024 3:33 PM EDT documented in this encounter Results * CA ECHO DOPPLER COMPLETE (03/22/2024 3:33 PM EDT) Anatomical Region Laterality Modality Other 03/22/2024 3:33 PM EDT Narrative 03/22/2024 3:35 PM EDT [address] [address] Cardiology Report Signed Patient: JASPREET LEO MR#: [id number] : 1950 Acct:[id number] Age/Sex: 73 / F ADM Date: 03/22/24 Loc: CARD Attending Dr: Stephanie Dumont NP Ordering Physician: Stephanie Dumont NP Date of Service: 03/22/24 Procedure(s): CA echo doppler complete Accession Number(s): [id number] cc: Stephanie Dumont NP Patient Name: JASPREET LEO MR#: [id number] : 1950 Exam Date: 03/22/2024 Ordering Doctor: STEPH Dumont CNP ECHOCARDIOGRAM REPORT PROCEDURE: CA ECHO DOPPLER COMPLETE INDICATIONS: Calcification of aortic valve, coronary artery disease, hypertension, smoker COMPARISON: None. DESCRIPTION: COMPLETE ECHOCARDIOGRAM Real-time transthoracic echocardiography with 2D, M-mode, spectral and color flow Doppler performed. QUALITY: Technical quality was good. LEFT VENTRICLE: Normal chamber size. Mild concentric left ventricular hypertrophy. LV EF: Global left ventricular systolic function is hyperdynamic; visually estimated ejection fraction is 65 to 70%. No obvious wall motion abnormalities. DIASTOLIC: Normal diastolic function. ATRIAL SEPTUM: Visually appears intact. LEFT ATRIUM: Normal chamber size. RIGHT ATRIUM: Normal chamber size. RIGHT VENTRICLE: Normal chamber size. Normal right ventricular systolic function. TRICUSPID VALVE: Normal mobility and thickness. No stenosis with trivial regurgitation. Doppler studies reveal mildly (35-45) elevated right sided pressures. RVSP 37 mmHg MITRAL VALVE: Normal mobility and thickness. No evidence of mitral valve stenosis. There is no mitral annular calcification. Trivial mitral regurgitation. AORTIC VALVE: Normal trileaflet appearance. Mildly calcified aortic valve with diminished mobility. Doppler velocity suggests no aortic valve stenosis. Trivial aortic regurgitation. AORTIC ROOT: Normal diameter and appearance. Ascending aorta and aortic arch are normal in size. PULMONIC VALVE: Normal thickness and mobility. No stenosis. Trivial regurgitation. PERICARDIUM: No evidence of pericardial effusion. IVC: IVC is dilated (2.2 cm) with no collapse. CONCLUSION: 1. Global left ventricular systolic function is hyperdynamic; visually estimated ejection fraction is 65 to 70% 2. Normal right ventricular size and systolic function 3. Mild left ventricular hypertrophy 4. Normal diastolic function 5. The left atrium is normal in size 6. Mildly elevated right ventricular systolic pressure; RVSP 37 mmHg 7. No significant valvular abnormalities Adult Echocardiography Procedure Report Left Ventricle LVEDD (3.7 - 5.6 cm): 4.09 cm LVESD (2.2 - 4.0 cm): 2.58 cm LVIVS thickness (0.6 - 1.2 cm): 1.20 cm LVPW thickness (0.5 - 1.0 cm): 1.06 cm e': 0.07 m/s E - e': 10.67 LVOT Max Gradient: 4.00 mm[Hg] LVOT Area (cm2): 1.00 m/s Peak Velocity (LVOT): 1.00 m/s Mean Velocity (LVOT): 0.61 m/s LVOT Diameter 1.86 cm Left Atrium LA Volume Index (2D A2C): 28.04 ml/m2 Left Atrium Systolic Dimension: 3.52 cm Mitral Valve MV E to A Ratio: 0.90 Mitral Valve A-Wave Peak Velocity: 0.84 m/s Mitral Valve E-Wave Peak Velocity: 0.76 m/s Right Ventricle Aorta AO Root Diam: 2.96 cm Ascending Ao Diam: 2.00 cm Aortic Valve AoV Area (Peak Ab): 1.40 cm2, 1.48 cm2 AoV Area (VTI): 1.61 cm2, 1.61 cm2 Peak Velocity(Antegrade Flow): 1.83 m/s, 1.94 m/s Peak Gradient(Antegrade Flow): 13.32 mm[Hg], 15.09 mm[Hg] Mean Velocity(Antegrade Flow): 1.20 m/s, 1.26 m/s Mean Gradient(Antegrade Flow): 6.69 mm[Hg], 7.42 mm[Hg] Velocity Time Integral: 39.89 cm, 39.38 cm Tricuspid Valve Peak Velocity (Regurgitant Flow): 2.36 m/s Pulmonic Valve Mean Gradient: 2.67 mm[Hg] Mean Velocity: 0.76 m/s Peak Velocity: 1.09 m/s, 1.10 m/s Peak Gradient: 4.88 mm[Hg], 4.78 mm[Hg] Right Atrium Right Atrium Systolic Pressure: 34.12 ml, 34.12 ml Dictated by: Madelaine Brady M.D. on 03/22/2024 at 15:30 Approved by: Madelaine Brady M.D. on 03/22/2024 at 15:33 Dictated By: Madelaine Brady M.D. Signed By: 03/22/24 1535 DD/ 1533 TD/TT: Apprentice Painter Hand: Procedure Note Radiology, Radiologist, MD - 03/22/2024 [place] [address] Cardiology Report Signed Patient: JASPREET LEO ZMR#: [id number] : 1950cct:[id number] Age/Sex: 73 / FADM Date: 03/22/24 Loc: CARD Attending Dr: Stephanie Dumont NP Ordering Physician: Stephanie Dumont NP Date of Service: 03/22/24 Procedure(s): CA echo doppler complete Accession Number(s): [id number] cc: Stephanie Dumont NP Patient Name: JASPREET LEO MR#: [id number] : 1950 Exam Date: 03/22/2024 Ordering Doctor: STEPH Dumont CNP ECHOCARDIOGRAM REPORT PROCEDURE: CA ECHO DOPPLER COMPLETE INDICATIONS: Calcification of aortic valve, coronary artery disease, hypertension, smoker COMPARISON: None. DESCRIPTION: COMPLETE ECHOCARDIOGRAM Real-time transthoracic echocardiography with 2D, M-mode, spectral and color flow Dopplerperformed. QUALITY: Technical quality was good. LEFT VENTRICLE: Normal chamber size. Mild concentric left ventricular hypertrophy. LV EF: Global left ventricular systolic function is hyperdynamic;visually estimated ejection fraction is 65 to 70%. No obvious wall motion abnormalities. DIASTOLIC: Normal diastolic function. ATRIAL SEPTUM: Visually appears intact. LEFT ATRIUM: Normal chamber size. RIGHT ATRIUM: Normal chamber size. RIGHT VENTRICLE: Normal chamber size. Normal right ventricularsystolic function. TRICUSPID VALVE: Normal mobility and thickness. No stenosis withtrivial regurgitation. Doppler studies reveal mildly (35-45) elevated right sided pressures. RVSP 37 mmHg MITRAL VALVE: Normal mobility and thickness. No evidence of mitralvalve stenosis. There is no mitral annular calcification. Trivial mitral regurgitation. AORTIC VALVE: Normal trileaflet appearance. Mildly calcified aorticvalve with diminished mobility. Doppler velocity suggests no aortic valvestenosis. Trivial aortic regurgitation. AORTIC ROOT: Normal diameter and appearance. Ascending aorta andaortic arch are normal in size. PULMONIC VALVE: Normal thickness and mobility. No stenosis. Trivial regurgitation. PERICARDIUM: No evidence of pericardial effusion. IVC: IVC is dilated (2.2 cm) with no collapse. CONCLUSION: 1. Global left ventricular systolic function is hyperdynamic; visually estimated ejection fraction is 65 to 70% 2. Normal right ventricular size and systolic function 3. Mild left ventricular hypertrophy 4. Normal diastolic function 5. The left atrium is normal in size 6. Mildly elevated right ventricular systolic pressure; RVSP 37 mmHg 7. No significant valvular abnormalities Adult Echocardiography Procedure Report Left Ventricle LVEDD (3.7 - 5.6 cm): 4.09 cm LVESD (2.2 - 4.0 cm): 2.58 cm LVIVS thickness (0.6 - 1.2 cm): 1.20 cm LVPW thickness (0.5 - 1.0 cm): 1.06 cm e': 0.07 m/s E - e': 10.67 LVOT Max Gradient: 4.00 mm[Hg] LVOT Area (cm2): 1.00 m/s Peak Velocity (LVOT): 1.00 m/s Mean Velocity (LVOT): 0.61 m/s LVOT Diameter 1.86 cm Left Atrium LA Volume Index (2D A2C): 28.04 ml/m2 Left Atrium Systolic Dimension: 3.52 cm Mitral Valve MV E to A Ratio: 0.90 Mitral Valve A-Wave Peak Velocity: 0.84 m/s Mitral Valve E-Wave Peak Velocity: 0.76 m/s Right Ventricle Aorta AO Root Diam: 2.96 cm Ascending Ao Diam: 2.00 cm Aortic Valve AoV Area (Peak Ab): 1.40 cm2, 1.48 cm2 AoV Area (VTI): 1.61 cm2, 1.61 cm2 Peak Velocity(Antegrade Flow): 1.83 m/s, 1.94 m/s Peak Gradient(Antegrade Flow): 13.32 mm[Hg], 15.09 mm[Hg] Mean Velocity(Antegrade Flow): 1.20 m/s, 1.26 m/s Mean Gradient(Antegrade Flow): 6.69 mm[Hg], 7.42 mm[Hg] Velocity Time Integral: 39.89 cm, 39.38 cm Tricuspid Valve Peak Velocity (Regurgitant Flow): 2.36 m/s Pulmonic Valve Mean Gradient: 2.67 mm[Hg] Mean Velocity: 0.76 m/s Peak Velocity: 1.09 m/s, 1.10 m/s Peak Gradient: 4.88 mm[Hg], 4.78 mm[Hg] Right Atrium Right Atrium Systolic Pressure: 34.12 ml, 34.12 ml Dictated by: Madelaine Brady M.D. on 03/22/2024 at 15:30 Approved by: Madelaine Brady M.D. on 03/22/2024 at 15:33 Dictated By: Madelaine Brady M.D. Signed By:03/22/24 1535 DD/ 1533 TD/TT: Apprentice Painter Hand: us Stephanie Dumont NP [facility] Final Result documented in this encounter Visit Diagnoses Not on filedocumented in this encounter Care Teams House Mover Relationship Specialty Start Date End Date Wilfred Polanco MD [address] [place] [address] PCP - General Family Medicine 08/17/23 04/23/24 Stephanie Dumont NP [address] [place] [phone] PCP - [facility] 10/09/23 12/07/70 Wilfred Polanco MD [address] [place] [address] PCP - General Family Medicine 05/13/24 Stephanie Dumont NP [address] [place] [address] Nurse Practitioner Family Medicine 04/09/23 documented as of this encounter
--- OUTSIDE RECORDS SUMMARY | 2024-12-12 15:50 | XMS_ITS | Encounter Summary ---
Author Organization [facility] Address [address] [facility] [place] [address] Care Team Providers Care Gin Inspector Name Role Phone Stephanie Dumont NP Unavailable [phone] Wilfred Polanco MD Primary Care Provider [phone] Stephanie Dumont ORE MINER BLASTING Unavailable [phone] Wilfred Polanco MD Primary Care Provider [phone] Encounter Details Date Type Department Care Team (Late Contact Info) Description 04/04/2024 Orders Only [facility] [address] [address] Stephanie Dumont NP [address] [address] Social History Tobacco Use Types [...] Upcoming Encounters Date Type Department Care Team ([facility] Contact Info) Description 12/25/2024 11:00 AM EDT Office Visit [facility] [address] [place] [address] Stephanie Dumont NP [address] [address] 04/02/2025 11:10 AM EDT Office Visit [facility] [address] [facility] [address] [place] [address] Nadia Mercado MD [address] [facility] [address] [place] [address] documented as of this encounter Procedures Procedure Name Priority Date/Time Associated Diagnosis Comments US THYROID Routine 04/04/2024 1:39 PM EDT documented in this encounter Results * US thyroid (04/04/2024 1:39 PM EDT) Anatomical Region Laterality Modality Head, Neck Ultrasound us Stephanie Dumont NP IMG US PROCEDURES Final Result documented in this encounter Visit Diagnoses Not on filedocumented in this encounter Care Teams Gin Inspector Relationship Specialty Start Date End Date Wilfred Polanco MD [address] [place] [address] PCP - General Family Medicine 08/17/23 04/23/24 Stephanie Dumont NP [address] [place] [address] PCP - [facility] 10/09/23 12/07/70 Wilfred Polanco MD [address] [place] [phone] PCP - General Family Medicine 05/13/24 Stephanie Dumont NP [address] [place] [address] Nurse Practitioner Family Medicine 04/09/23 documented as of this encounter
--- OUTSIDE RECORDS SUMMARY | 2024-12-12 15:50 | XMS_ITS | Encounter Summary ---
Author Organization [facility] Address [address] [place] [address] Care Team Providers Care Refuse And Recycling Worker Name Role Phone Stephanie Dumont NP Unavailable [phone] Wilfred Polanco MD Primary Care Provider [phone] Stephanie Dumont CQ DEVELOPER Unavailable [phone] Wilfred Polanco MD Primary Care Provider [phone] Encounter Details Date Type Department Care Team (Late Contact Info) Description 09/13/2023 Orders Only [facility] [address] [place] [address] Gilson Sarah MD [address] [place] [address] Social History Tobacco Use Types Packs/Day Years [...] Encounters Date Type Department Care Team (Late Contact Info) Description 12/25/2024 11:00 AM EDT Office Visit [facility] [address] [place] [address] Stephanie Dumont NP [address] [place] [address] 04/02/2025 11:10 AM EDT Office Visit [facility] [address] [facility] [address] [place] [address] Nadia Mercado MD [address] [place] [facility] [address] [place] [address] documented as of this encounter Procedures Procedure Name Priority Date/Time Associated Diagnosis Comments US RENAL KIDNEY AND BLADDER Routine 09/11/2023 2:22 PM EST documented in this encounter Results * US RENAL KIDNEY AND BLADDER (09/11/2023 2:22 PM EST) Anatomical Region Laterality Modality Radiographic Maryam ging Gilson Sarah MD IMG XR PROCEDURES Final Result documented in this encounter Visit Diagnoses Not on filedocumented in this encounter Care Teams Refuse And Recycling Worker Relationship Specialty Start Date End Date Wilfred Polanco MD [address] [place] [address] PCP - General Family Medicine 08/17/23 04/23/24 Stephanie Dumont NP [address] [place] [address] PCP - [facility] 10/09/23 12/07/70 Wilfred Polanco MD [address] [place] [address] PCP - General Family Medicine 05/13/24 Stephanie Dumont NP [address] [place] [address] Nurse Practitioner Family Medicine 04/09/23 documented as of this encounter
--- NOTE | 2024-12-12 15:53 | CT_ITS ---
The [address] [address] Patient Name: JASPREET LEO MRN: [id number] date: 1950 Sex: F Assigned Patient Location: CT Current Patient Location: CT Accession/Order Number: [id number] Exam Date: 12/12/2024 16:06 Report Date: 12/12/2024 16:12 At the request of: ALEXI TOPETE NP Procedure: CT chest wo con CT Chest without contrast TECHNIQUE: Axial imaging with 2-D reconstruction. The CT exam was performed using one or more the following dose reduction techniques: Automated exposure control, adjustment of the MA and/or Kv according to patient size, or use of the iterative reconstruction technique. History: Follow-up assessment of multiple pulmonary nodules COMPARISON: 05/28/2024 THYROID: Stable prominent right thyroid lobe. TRACHEA AND BRONCHI: Patent ESOPHAGUS: Unremarkable. HEART: Within normal limits PERICARDIAL EFFUSION: None CORONARY ARTERY CALCIFICATION: Present MEDIASTINUM: No adenopathy. No pneumoperitoneum. No mediastinal hematoma. PULMONARY BIJAL: No hilar mass or adenopathy is seen. THORACIC AORTA Unremarkable LUNG NODULE there were small scattered lung nodules redemonstrated. Irregular nodule posterior right upper lobe measures up to 9 mm. Calcified granuloma posterior right lung base redemonstrated. No new or enlarging lung nodules. LUNGS: Lungs are clear PLEURAL EFFUSION: None PNEUMOTHORAX: No pneumothorax seen. CHEST WALL: No abnormality AXILLA:Unremarkable BONY STRUCTURES hyperostosis of thoracic spine. UPPER ABDOMEN: Images of the upper abdomen are noncontributory. CT/CT chest wo con IMPRESSION: Stable numerous small scattered lung nodules. May consider 1 year follow-up assessment to confirm stability. Impression dictated by: Valentin Peralta M.D. 12/12/2024 4:12 PM Dictation Location: [employer] Electronically authenticated by: [id number] Y Date: 12/12/2024 16:12
== END 2024-12-12 15:48 | disposition home or self-care (01) ==
LOC: CT 15:47
PROVIDERS: PCP Nurse Practitioner; Visit Provider Nurse Practitioner
DX: R91.8 Other nonspecific abnormal finding of lung field (principal)
CPT/HCPCS: 71250

== ENCOUNTER 2024-12-25 12:14 | Inpatient (IN) | payer MEDICARE, SELFPAY ==
--- OUTSIDE RECORDS SUMMARY | 2024-12-20 13:45 | XMS_ITS | Encounter Summary ---
Author Organization [facility] Address [address] [place], [place] [address] Care Team Providers Care Piping Engineer Name Role Phone Stephanie Dumont Primary Care Provider Unavailabl e Source Comments In the event this information is protected by the Federal Confidentiality of Alcohol and Drug AbusePatient Records regulations: The Federal rules restrict any use of the information to criminally investigate or prosecute any alcohol or drug abuse patient.[facility] Reason for Visit * [place] Prior Authorization (Routine) - Authorized Specialty Diagnoses / Procedures Referred By Contac t Referred To Contact Diagnoses 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) Rinku Dupree MD [facility] [place] [address] Phone: tel: fax: Rinku Dupree MD [facility] [place] [address] Phone: tel: fax: Referral ID Status Reason Start Date Expiration Date V isits Requested Visits Authorized [id number] Authorized 12/04/2024 12/04/2025 1 24 Encounter Details Date Type Department Care Team (Latest Contact Info) Description 12/20/2024 1:45 PM EDT Infusion Center Hematology/Oncology [facility] [place] [address] 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) (Primary Dx); 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 deficiency; Abnormal weight loss; 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 Last address used for calculation [address] 12/15/2022 Comments No Sex and Gender Information Value Date Recorded Sex Assigned at Not on file Legal Sex Female 1:30 PM EDT Gender Identity Not on file Sexual Orientation Not on file documented as of this encounter Last Filed Vital Signs Vital Sign Reading Time Taken Comments Blood Pressure 116/72 12/20/2024 1:42 PM EDT Pulse 77 12/20/2024 1:42 PM EDT Temperature 36.5 C (97.7 F) 12/20/2024 1:42 PM EDT Respiratory Rate 18 12/20/2024 1:42 PM EDT Oxygen Saturation 99% 12/20/2024 1:42 PM EDT Inhaled Oxygen Concentration - - Weight - - Height - - Body Mass Index - - documented in this encounter Functional Status * Are you deaf or do you have serious difficulty hearing? Answer Date of Assessment Author No 08/04/2022 2:24 PM Josi Berrios APRN.COMPLAINT OPERATOR * Are you blind or do you have serious difficulty seeing, even when wearing glasses? Answer Date of Assessment Author No 08/04/2022 2:24 PM Josi Berrios APRN.COMPLAINT OPERATOR * Do you have serious difficulty walking or climbing stairs? Answer Date of Assessment Author No 08/04/2022 2:24 PM Josi Berrios APRN.COMPLAINT OPERATOR * Do you have difficulty dressing or bathing? Answer Date of Assessment Author No 08/04/2022 2:24 PM Josi Berrios APRN.CNP * Because of a physical, mental, or [...] Department Care Team (Latest Contact Info) Description 01/03/2025 1:45 PM EDT Office Visit [facility] [address] [place] [address] [place] [address] 6 week follow up, labs, B12 & Aranesp 01/03/2025 2:00 PM EDT Visit ([facility]) Office Hematology/Oncology [address] [place] [address] [place] [address] Josi Burris APRN.COMPLAINT OPERATOR [address] [place] [address] 6 week follow up, labs, B12 & Aranesp 01/03/2025 2:30 PM EDT [facility] Hematology/Oncology [address] [place] [address] [place] [address] 6 week follow up, labs, B12 & Aranesp documented as of this encounter Visit Diagnoses Diagnosis 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)- Primary 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 deficiency Other vitamin B12 deficiency anemia Abnormal weight loss Loss of weight Other systemic lupus erythematosus with other organ involvement (HCC) Thrombocytopenia Thrombocytopenia, unspecified Chronic ITP (idiopathic thrombocytopenia) (HCC) Immune thrombocytopenic purpura documented in this encounter Administered Medications Inactive Administered Medications - up to 3 most recent administrations Medication Order MAR Action Action Date Dose Rate Site cyanocobalamin 1,000 mcg injection 1,000 mcg, INTRAMUSCULAR, ONCE, 1 dose, On Mon12/20/24 at 1400Indications:Megaloblasti c 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 deficiency,Abnormal weight loss,Other systemic lupus erythematosus with other organ involvement (HCC),Thrombocytopenia,Chron ic ITP (idiopathic thrombocytopenia) ([facility]) Given 12/20/2024 1:50 PM EDT 1,000 mcg Arm, Right Darbepoetin Arsalan In Polysorbat 200 mcg injection (ARANESP) 200 mcg, SUBCUTANEOUS, ONCE, 1 dose, On Mon12/20/24 at 1400, Protect from light REFRIGERATEIndications:Anemi a in stage 3b chronic kidney disease ([facility]) Given 12/20/2024 1:50 PM EDT 200 mcg Arm, Left documented in this encounter Care Teams Piping Engineer Relationship Specialty Start Date End Date Stephanie Dumont PCP - General 04/20/23 documented as of this encounter
[2024-12-25] VITALS (27 sets, daily range): BP systolic 105–131; BP diastolic 49–82; PULSE 61–76; TEMP 36.4–36.6; O2SAT 94–99; BMI 31.2; BMI 31.7
--- OUTSIDE RECORDS SUMMARY | 2024-12-25 11:00 | XMS_ITS | Encounter Summary ---
Author Organization [facility] Address [address] [place] [address] Care Team Providers Care Nutrition Consultant Name Role Phone Stephanie Dumont MOTOR GRADER OPERATOR Unavailable [phone] Stephanie Dumont MOTOR GRADER OPERATOR Unavailable [phone] Wilfred Polanco MD Primary Care Provider [phone] Reason for Visit * Reason Comments Hypertension Encounter Details Date Type Department Care Team ([facility] Contact Info) Description 12/25/2024 11:00 AM EDT Office Visit [facility] [address] [place] [address] Stephanie Dumont MOTOR GRADER OPERATOR [address] [place] [id number] Diarrhea, unspecified type (Primary Dx); Chronic kidney disease, stage 3b (CMS-HCC); Coronary artery disease involving [place] coronary artery of [place] heart without angina pectoris ; Essential hypertension ; Obesity (BMI 30-39.9); Pre-diabetes; Chronic ITP (idiopathic thrombocytopenia) ([facility]); Tobacco dependence; Thyroid nodule Social History Tobacco Use Types Packs/Day Years [...] Sign Reading Time Taken Comments Blood Pressure 96/58 12/25/2024 11:04 AM EDT Pulse 73 12/25/2024 11:04 AM EDT Temperature 37.1 C (98.7 F) 12/25/2024 11:04 AM EDT Respiratory Rate 18 12/25/2024 11:04 AM EDT Oxygen Saturation 97% 12/25/2024 11:04 AM EDT Inhaled Oxygen Concentration - - Weight 78.7 kg (173 lb 6.4 oz) 12/25/2024 11:04 AM EDT Height - - Body Mass Index 30.72 09/25/2024 10:23 AM EDT documented in this encounter Patient Instructions * Patient Instructions* Stephanie Dumont NP - 12/25/2024 11:00 AM EDT Proceed to ER for evaluation Also will provide an order for you for thyroid labs with next lab draw Fu in 3 weeks documented in this encounter Progress Notes * Stephanie Dumont NP - 12/25/2024 11:54 AM EDTAssociated Problem(s): Diarrhea Ongoing since 1 week, worsening in fatigue and weakness Orthostatics in office today: Lying 112/62, sitting 102/62, and standing 86/54 I do suspect dehydration is an issue, d/t these sxs and BP and age and medical conditions, I am going to have her go to [facility] ER for evaluation.she is agreeable to this and her can drive her there * FREDDY HAMILTON - 12/25/2024 11:00 AM EDT Pt started feeling ill a week ago on Monday. She is on day two of diarrhea. S/s include weakness- she struggled walking in and shaky. Pt is unsure if she is dehydrated, she also has become sob with short distances. No nausea, no diarrhea. Pt asks if the magnesium medication she was taking could cause her to feel this way. Pt states she had a cough that lasted two weeks then went away however cough is back, she is very phlegmy, a lot of sinus drainage, no fever, no new pain or extra body aches. Pt states BP's have been running on the lower side for her and they have been running 99/40, 114/53, 104,53 Pt has a wrist cuff. This morning it was Pt had labs done on Monday at the [facility] for anemia- she goes back in on the and unsure if she will get another b12 injections She states the rbc were 10 * Stephanie Dumont NP - 12/25/2024 11:00 AM EDT Images from the original note were not included. Andrei Fish is a 74 y.o. female presents with chief complaint of Hypertension HPI: Pt started feeling ill a week ago on Monday. She diarrhea yellow fluid, most days at least 5-6 times daily, today 3 times already, no fever, no others in the home sick. Feels weaker- she struggledwalking in and shaky. Pt is unsure if she is dehydrated, she also has become sob with short distances. No nausea/vomiting, no abd pain. Pt asks if the magnesium medication she was taking could cause her to feel this way (she has been taking this more regularly, and restarted taking d/t muscle cramps), so she stopped taking them last week, still present. . Pt states she had a cough that lasted two weeks then went away however cough is back, she is very phlegmy, a lot of sinus drainage, no fever, no new pain or extra body aches. Pt states BP's have been running on the lower side for her and they have been running 99/40, 114/53, 104,53 Pt has a wrist cuff. This morning it was Pt had labs done on Monday at the [facility] for anemia- she goes back in on the and unsure if she will get another b12 injections She states the rbc were 10 SUBJECTIVE: MEDICATIONS: Current Outpatient Medications Medication Instructions benzonatate (TESSALON) 100 mg, Every 6 hours PRN cyclobenzaprine (FLEXERIL) 5 mg, Nightly ergocalciferol (VITAMIN D-2) 50,000 Units, Weekly hydroCHLOROthiazide (HYDRODIURIL) 25 mg, Daily losartan (COZAAR) 50 mg, Nightly metoprolol succinate XL (TOPROL-XL) 12.5 mg, Oral, Daily, Do not crush or chew. naproxen (NAPROSYN) 500 mg, 2 times daily PRN pilocarpine (Salagen) 5 MG tablet 1 tablet, 3 times daily spironolactone (ALDACTONE) 25 mg, Daily RT Tavalisse 100 mg, 2 times daily ALLERGIES: Allergies Allergen Reactions Vancomycin Other States had burning sensation t/o entire body. (Infectious disease) States medication was given too fast. Glkklsq-Ulbvbi-Qquqt Pertussis Rash REVIEW OF SYMPTOMS: Review of Systems Constitutional: Positive for fatigue. Negative for appetite change, chills and fever. HENT: Negative for congestion, ear pain and sore throat. Eyes: Negative for pain, discharge, redness and visual disturbance. Respiratory: Positive for shortness of breath. Negative for cough and wheezing. Cardiovascular: Negative for chest pain, palpitations and leg swelling. Gastrointestinal: Positive for diarrhea. Negative for abdominal pain, blood in stool, constipation,nausea and vomiting. Genitourinary: Negative for difficulty urinating, dysuria and frequency. Musculoskeletal: Negative for arthralgias, back pain, joint swelling and myalgias. Skin: Negative for rash and wound. Neurological: Negative for dizziness, tremors, seizures, syncope and headaches. Psychiatric/Behavioral: Negative for behavioral problems, self-injury and suicidal ideas. The patient is not nervous/anxious. Hematological: Does not bruise/bleed easily. Endocrine: Negative for polydipsia, polyphagia and polyuria. Allergic/Immunologic: Negative for environmental allergies and food allergies. PAST MEDICAL HISTORY Past Medical History: Diagnosis Date Disease of thyroid gland 06/28/2022 Hypertension Leg pain, bilateral 06/06/2023 Obesity (BMI 30-39.9) 06/06/2023 Past Surgical History: Procedure Laterality Date APPENDECTOMY BI MAMMO GUIDED LOCALIZATION BREAST LEFT Left 03/28/2017 BI MAMMO GUIDED LOCALIZATION BREAST LEFT 03/28/2017 BREAST BIOPSY Left BREAST LUMPECTOMY Left 07/2015 BREAST SURGERY CHOLECYSTECTOMY COLONOSCOPY 2009 EYE SURGERY FRACTURE SURGERY Left leg HYSTERECTOMY family history includes Breast cancer in her sister; Cancer in her father and sibling; Diabetes in her mother; Heart disease in her mother and sibling; Hypertension in her mother. OBJECTIVE: Visit Vitals BP 96/58 (BP Location: Left arm, Patient Position: Sitting, BP Cuff Size: Adult long) Pulse 73 Temp 98.7 ??F (Temporal) Resp 18 Wt 173 lb 6.4 oz LMP (LMP Unknown) SpO2 97% BMI 30.72 kg/m?? OB Status Postmenopausal Smoking Status Every Day BSA 1.87 m?? Physical Exam Vitals and nursing note reviewed. Constitutional: General: She is not in acute distress. Appearance: Normal appearance. HENT: Head: Normocephalic and atraumatic. Right Ear: External ear normal. Left Ear: External ear normal. Nose: Nose normal. Mouth/Throat: Mouth: Mucous membranes are moist. Eyes: Extraocular Movements: Extraocular movements intact. Conjunctiva/sclera: Conjunctivae normal. Cardiovascular: Rate and Rhythm: Normal rate and regular rhythm. Pulses: Normal pulses. Heart sounds: Normal heart sounds. Pulmonary: Effort: Pulmonary effort is normal. Breath sounds: Normal breath sounds. No wheezing or rhonchi. Abdominal: General: Bowel sounds are normal. There is no distension. Palpations: Abdomen is soft. There is no mass. Tenderness: There is no abdominal tenderness (generalized). Musculoskeletal: General: Normal range of motion. Cervical back: Normal range of motion and neck supple. Right lower leg: No edema. Left lower leg: No edema. Lymphadenopathy: Cervical: No cervical adenopathy. Skin: General: Skin is warm and dry. Capillary Refill: Capillary refill takes 2 to 3 seconds. Coloration: Skin is pale. Findings: No rash. Neurological: General: No focal deficit present. Mental Status: She is alert and oriented to person, place, and time. Psychiatric: Mood and Affect: Mood normal. Behavior: Behavior normal. Thought Content: Thought content normal. Judgment: Judgment normal. ASSESSMENT AND PLAN: No follow-ups on file. Problem List Items Addressed This Visit Chronic ITP (idiopathic thrombocytopenia) (HCC) Continue with [facility] for treatment Essential hypertension Please check blood pressure daily and record DASH diet Limit caffeine Take medication as directed Contact office if chest pain, pressure, dizziness, shortness of breath, swelling legs Recommend slow position changes Current meds: hydrochlorothiazide, losartan, metoprolol, aldactone Tobacco dependence The patient has been advised of the risks of continued smoking: stroke, [place], all forms of cancer, lung disease, and . Options for quitting smoking include: cold turkey, hypnosis, acupuncture, nicotine replacement meds(gum, lozenges, and patches), Buproprion, and Varenicline. At this time pt is encouraged to evaluate their goals for wanting to quit smoking, and reach out toprovider when ready to start this process Patient [...] counseled on the importance of smoking cessation. Obesity (BMI 30-39.9) Discussed with patient their BMI (actual, verses recommended). We have also discussed lifestyle modifications: attempts to perform physical activity as chronic conditions allow, also to monitor dietary intake: increasing protein/fruits/veggies and lowering carb intake (unless contraindicated). Limit sodas, juices, and sugary drinks. Thyroid nodule Biopsy resolved, bethesda-nondiagnostic, rare benign thyroid follicular cells Relevant Orders TSH T4, free T3, free Coronary artery disease involving point [place] coronary artery of point [place] heart Takes b clarke Pre-diabetes No current meds Watch for increase in thirst, urination, or appetite. Inspect feet frequently monitoring for open wounds , and also recommend yearly eye exam. Pt should attempt to remain as physically active as chronic conditions allow, as well as trying to follow a diet low in carbohydrates, and simple sugars. A1c 5.7 12/25/24 6.3 (04/02) Relevant Orders POCT glycosylated hemoglobin (Hb A1C) docked device (Completed) Diarrhea Ongoing since 1 week, worsening in fatigue and weakness Orthostatics in office today: Lying 112/62, sitting 102/62, and standing 86/54 I do suspect dehydration is an issue, d/t these sxs and BP and age and medical conditions, I am going to have her go to [facility] ER for evaluation.she is agreeable to this and her can drive her there Chronic kidney disease, stage 3b (CMS-HCC) - Primary Goal control blood pressures Check labs semi annually as well as prn sxs changes * Stephanie Dumont NP - 12/25/2024 6:07 AM EDTAssociated Problem(s): Thyroid nodule Biopsy resolved, bethesda-nondiagnostic, rare benign thyroid follicular cells * Stephanie Dumont NP - 12/25/2024 6:04 AM EDTAssociated Problem(s): Tobacco dependence The patient has been advised of the risks of continued smoking: stroke, [place], all forms of cancer, lung disease, and . Options for quitting smoking include: cold turkey, hypnosis, acupuncture, nicotine replacement meds(gum, lozenges, and patches), Buproprion, and Varenicline. At this time pt is encouraged to evaluate their goals for wanting to quit smoking, and reach out toprovider when ready to start this process Patient [...] counseled on the importance of smoking cessation. * Stephanie Dumont NP - 12/25/2024 6:04 AM EDTAssociated Problem(s): Chronic ITP (idiopathic thrombocytopenia) (HCC) Continue with [facility] for treatment * Stephanie Dumont NP - 12/25/2024 6:04 AM EDTAssociated Problem(s): Pre-diabetes No current meds Watch for increase in thirst, urination, or appetite. Inspect feet frequently monitoring for open wounds , and also recommend yearly eye exam. Pt should attempt to remain as physically active as chronic conditions allow, as well as trying to follow a diet low in carbohydrates, and simple sugars. A1c 5.7 12/25/24 6.3 (04/02) * Stephanie Dumont NP - 12/25/2024 6:03 AM EDTAssociated Problem(s): Obesity (BMI 30-39.9) Discussed with patient their BMI (actual, verses recommended). We have also discussed lifestyle modifications: attempts to perform physical activity as chronic conditions allow, also to monitor dietary intake: increasing protein/fruits/veggies and lowering carb intake (unless contraindicated). Limit sodas, juices, and sugary drinks. * Stephanie Dumont NP - 12/25/2024 6:03 AM EDTAssociated Problem(s): Chronic kidney disease, stage 3b ([facility]) Goal control blood pressures Check labs semi annually as well as prn sxs changes * Stephanie Dumont NP - 12/25/2024 6:02 AM EDTAssociated Problem(s): Essential hypertension Please check blood pressure daily and record DASH diet Limit caffeine Take medication as directed Contact office if chest pain, pressure, dizziness, shortness of breath, swelling legs Recommend slow position changes Current meds: hydrochlorothiazide, losartan, metoprolol, aldactone * Stephanie Dumont NP - 12/25/2024 6:02 AM EDTAssociated Problem(s): Coronary artery disease involving point [place] coronary artery of point [place] heart Takes b clarke * Stephanie Dumont NP - 12/25/2024 6:02 AM EDTAssociated Problem(s): Multiple lung nodules on CT Next scan due 12/2025 * Stephanie Dumont NP - 12/25/2024 6:01 AM EDTAssociated Problem(s): Obstructive sleep apnea syndrome You have a diagnosis of obstructive sleep apnea. It is recommended that you wear your PAP device any time while in bed sleeping. Not using the PAP device can increase your risk of elevated/uncontrolled high blood pressure, atrial fibrillation, heart attack, stroke, or sudden . Compliance with PAP: How many hours of use per night: Do you feel more refreshed in the morning: Company that supplies your machine and tubing/filters etc: Doctor that manages your ADALBERTO: documented in this encounter Plan of Treatment Upcoming Encounters Date Type Department Care Team (Late st Contact Info) Description 01/15/2025 2:20 PM EDT Office Visit [facility] [address] [place] [address] Stephanie Dumont NP [address] [place] [address] 04/02/2025 11:10 AM EDT Office Visit [facility] [address] [facility] [address] [place] [address] Nadia Mercado MD [address] [facility] [address] [place] [address] Scheduled Orders Name Type Priority Associated Diagnoses Orde r Schedule TSH Lab Routine Thyroid nodule Expected: 12/25/2024 (Approximate), Expires: 12/25/2025 T4, free Lab Routine Thyroid nodule Expected: 12/25/2024 (Approximate), Expires: 12/25/2025 T3, free Lab Routine Thyroid nodule Expected: 12/25/2024 (Approximate), Expires: 12/25/2025 documented as of this encounter Procedures Procedure Name Priority Date/Time Associated Diagnosis Comments POCT GLYCOSYLATED HEMOGLOBIN (HGB A1C) Routine 12/25/2024 11:31 AM EDT Pre-diabetes documented in this encounter Results * POCT glycosylated hemoglobin (Hb A1C) docked device (12/25/2024 11:31 AM EDT) Hemoglobin A1C 5.7 Blood Venous blood specimen / Unknown 12/25/2024 11:31 AM EDT us Stephanie Dumont NP POINT OF CARE TEST ENTER/EDIT O RDERABLES Final Result documented in this encounter Visit Diagnoses Diagnosis Diarrhea, unspecified type- Primary Chronic kidney disease, stage 3b (CMS-HCC) Coronary artery disease involving point [place] coronary artery of [place] heart without angina pectoris Essential hypertension Unspecified essential hypertension Obesity (BMI 30-39.9) Pre-diabetes Other abnormal glucose Chronic ITP (idiopathic thrombocytopenia) (HCC) Tobacco dependence Tobacco use disorder Thyroid nodule Nontoxic uninodular goiter documented in this encounter Additional Health Concerns Assessment Noted Time PHQ-9 Depression Total Score: 2 05/14/20 24 10:42 AM EST documented as of this encounter Care Teams Nutrition Consultant Relationship Specialty Start Date End Date Stephanie Dumont NP [address] [place] [phone] PCP - [facility] 10/09/23 12/07/70 Wilfred Polanco MD [address] [place] [address] PCP - General Family Medicine 05/13/24 Stephanie Dumont NP [address] [place] [phone] Nurse Practitioner Family Medicine 04/09/23 documented as of this encounter
--- NOTE | 2024-12-25 12:41 | ECG_ITS ---
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 Measurements Intervals [place] Rate: 72 P: 34 CO: 168 QRS: 11 QRSD: 76 T: 40 QT: 392 QTc: 416 Interpretive Statements 1100 Sinus rhythm 4636 Possible inferior injury or acute infarct 8102 Low QRS voltage in chest leads 9150 abnormal ECG Compared to ECG 02/12/2024 15:23:[address] elevation is still present Electronically Signed On 12-26-2024 17:45:11 EDT by HERSON CAMARA M.D.
[2024-12-25] MEDS: 0.9 % SODIUM CHLORIDE 1,000 ML 999 ML IV (12:50)
[2024-12-25 12:56] LABS: Basophils Percent Auto 0.4 % (0.2-2.0); Eosinophils Percent Auto 0.7 % (0.9-7.0); Hemoglobin 11.3 g/dL (12.0-16.0); Immature Granulocytes Abs Auto 0.01 10^3/uL (0.00-0.03); Immature Granulocytes Pct Auto 0.2 % (0.0-0.5); Lymphocytes Absolute Auto 2.3 10^3/uL (1.2-3.8); Lymphocytes Percent Auto 42.8 % (20.5-60.0); Mean Corpuscular HGB Conc 31.4 g/dL (29.9-35.2); Mean Corpuscular Hemoglobin 31.8 pg (26.7-34.0); Mean Corpuscular Volume 101.4 fL (81.0-99.0); Mean Platelet Volume 9.3 fL (9.5-13.5); Monocytes Absolute Auto 0.2 10^3/uL (0.3-0.8); Monocytes Percent Auto 3.2 % (1.7-12.0); Neutrophils Absolute Auto 2.8 10^3/uL (1.4-6.5); Neutrophils Percent Auto 52.7 % (43.0-75.0); Platelet Count 197 10^3/uL (150-450); Red Blood Count 3.55 10^6/uL (4.20-5.40); Red Cell Distribution Width 14.2 % (11.0-15.0); White Blood Count 5.4 10^3/uL (4.0-11.0)
[2024-12-25 13:25] LABS: Alanine Aminotransferase 27 U/L (14-59); Albumin Globulin Ratio 0.7; Albumin Level 3.3 g/dL (3.4-5.0); Alkaline Phosphatase 96 U/L (46-116); Anion Gap 17.7; Aspartate Amino Transferase 27 U/L (15-37); BUN Creatinine Ratio 27.4; Bilirubin Total 0.6 mg/dL (0.2-1.0); Chloride 107 mmol/L (98-107); Estimated GFR (African America 23 (>=60 mL/min/1.73m^2); Estimated GFR (Non-African Ame 19 (>=60 mL/min/1.73m^2); Globulin 4.7 g/dL; Glucose 106 mg/dL (74-106); Potassium 4.7 mmol/L (3.5-5.1); Sodium 137 mmol/L (136-145); Troponin I High Sensitivity 6.3 pg/mL (4.0-51.3)
[2024-12-25] MEDS: 0.9 % SODIUM CHLORIDE 1,000 ML 1000 ML IV (14:36)
[2024-12-25 14:58] LABS: Internal Control Within Normal Limits; Occult Blood Negative
--- NOTE | 2024-12-25 15:26 | CT_ITS ---
The [address] [address] Patient Name: JASPREET LEO MRN: [id number] date: 1950 Sex: F Assigned Patient Location: ED.MAIN Current Patient Location: ED.MAIN Accession/Order Number: [id number] Exam Date: 12/25/2024 15:57 Report Date: 12/25/2024 16:03 At the request of: ALIE RAY MD Procedure: CT abdomen pelvis wo con CT Abdomen and Pelvis withoutcontrast TECHNIQUE: Axial imaging with 2-D reconstruction. . The CT exam was performed using one or more the following dose reduction techniques: Automated exposure control, adjustment of the MA and/or Kv according to patient size, or use of the iterative reconstruction technique. COMPARISON: 02/12/2024 History: Diarrhea for 7 days. Hypertension. Weakness. LIMITATIONS: None LOWER THORAX remote granulomatous changes. Mild atelectasis. LIVER: Unremarkable GALLBLADDER: Cholecystectomy clips identified. 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 KIDNEYS:Focal scarring. Bilateral renal cysts. AORTA: Mild aneurysm prominence of the aorta at the level of the diaphragmatic hiatus. Measures up to 3.5 cm. 3.4 cm fusiform infrarenal abdominal aortic aneurysm identified. Unchanged. Atherosclerosis RETROPERITONEUM: No significant retroperitoneal abnormalities identified. MESENTERY:Unremarkable STOMACH:Unremarkable SMALL BOWEL: The small bowel loops are nondistended. APPENDIX: The appendix is normal. COLON: Unremarkable URINARY BLADDER: Urinary bladder is unremarkable. REPRODUCTIVE SYSTEM: The uterus is absent. PNEUMOPERITONEUM: None PERITONEAL FLUID:None BONY STRUCTURES: Similar diffuse osteopenia and degenerative change. ABDOMINAL WALL: Unremarkable CT/CT abdomen pelvis wo con IMPRESSION: No acute findings. No colitis or diverticulitis. Impression dictated by: Alie Peralta M.D. 12/25/2024 4:03 PM Dictation Location: [employer] Electronically authenticated by: [id number] Y Date: 12/25/2024 16:03
--- NOTE | 2024-12-25 15:27 | ED.GENADUL1 ---
HPI HPI - General Adult General Chief complaint: Nausea/Vomiting/Diarrhea Stated complaint: HYPERTENSION SENT BY ALEXI CARROLL Time Seen by Provider: 12/25/24 12:51 Source: patient Mode of arrival: walk-in Limitations: no limitations History of Present Illness HPI narrative: Patient is a 74-year-old female who is presenting to the ER with chief complaint of loose stool watery stool for the past 7 and 9 days. Patient's had no change in water sources, no recent antibiotics, patient's had no traveling. No sick contacts. Patient last night had a ache to her left upper chest. Patient has not had any chest pain today. No shortness of breath. This morning patient was lightheaded. Patient saw PCP in the office today and was recommended come to the ER today for weakness, low blood pressure, and evaluation. Patient has no urinary frequency urgency or burning. No abdominal pain, nausea or vomiting today. No acute complaints. Patient does feel her mouth is dry. Patient's and grandchildren are at bedside. All systems are negative except as noted/marked. All systems reviewed and otherwise negative. Nurses note and vital signs reviewed and patient is not hypoxic. General: The patient appears well and in no apparent distress. Patient is resting comfortably on cart. Patient is not toxic, lethargic, or listless Skin: Warm, dry, no pallor noted. There is no rash noted. No petechiae, purpura. Head: Normocephalic, atraumatic Eye: Normal conjunctiva, no drainage, EOMI. PERRL Ears, Nose, Mouth, and Throat: oral mucosa is dry. Nares patent. Mouth without vesicles. Cardiovascular: Regular Rate and Rhythm, no murmur, gallop, rub. Patient has no tenderness to palpation to bilateral Anterior, lateral, posterior chest wall. Patient has no reproducible tenderness to palpation to respiratory: Patient is in no distress, no accessory muscle use, lungs are clear to auscultation, no wheezing, rales or rhonchi Back: non-tender, no CVA tenderness bilaterally to percussion. No CT LS midline pain GI: Soft, obese, no tenderness to palpation, no masses appreciated. No rebound, guarding, or rigidity noted. No distention Musculoskeletal: Patient has full range of motion of all of the extremities, no motor, sensory, or focal neurological deficits Neurological: A&O x4, normal speech Psychiatric: Cooperative Related Data Home Medications ?Medication ?Instructions ?Recorded ?Confirmed fostamatinib 100 mg tablet 100 mg PO BID 03/12/23 12/25/24 (Tavalisse) hydrochlorothiazide 25 mg tablet 25 mg PO DAILY 03/12/23 12/25/24 losartan 25 mg tablet 50 mg PO .QHS 03/12/23 12/25/24 pilocarpine HCl 5 mg tablet 5 mg PO TID 03/12/23 04/16/24 spironolactone 25 mg tablet 25 mg PO DAILY 03/12/23 12/25/24 ergocalciferol (vitamin D2) 1,250 1,250 mcg PO QWEEK 11/28/23 04/16/24 mcg (50,000 unit) capsule cyclobenzaprine 5 mg tablet 5 mg PO .QHS 12/25/24 12/25/24 metoprolol succinate 25 mg 12.5 mg PO DAILY 12/25/24 12/25/24 tablet,extended release 24 hr Allergies Allergy/AdvReac Type Severity Reaction Status Date / Time vancomycin AdvReac Mild burning Verified 12/25/24 12:33 dpt vaccine Allergy Rash Uncoded 12/25/24 12:33 Opioid HPI Opioid Management Most Recent Opioid Data: Last Pain Scale 10 02/12/24, 16:31 Last Pain Assessment Today, 17:00 Last ORT Total Score 0 Today, 16:49 Last ORT Risk Category Low Risk Today, 16:49 [facility] Medical History (Updated 12/25/24 @ 21:22 by Valentin Osborne MD) Renal cyst ?N28.1 - Cyst of kidney, acquired (ICD-10) Thyroid nodule ?E04.1 - Nontoxic single thyroid nodule (ICD-10) Osteoporosis ?M81.0 - Age-related osteoporosis without current pathological fracture (ICD-10) HTN (hypertension) ?I10 - Essential (primary) hypertension (ICD-10) Idiopathic thrombocytopenia ?D69.3 - Immune thrombocytopenic purpura (ICD-10) Surgical History (Updated 04/16/24 @ 15:34 by Emilia Lanza) H/O fine needle aspiration with imaging guidance ?Z98.890 - Other specified postprocedural states (ICD-10) H/O: hysterectomy ?Z90.710 - Acquired absence of both cervix and uterus (ICD-10) S/P ORIF (open reduction internal fixation) fracture ?Z98.890 - Other specified postprocedural states (ICD-10) ?Z87.81 - Personal history of (healed) traumatic fracture (ICD-10) Status post blepharoplasty of both eyes ?Z98.890 - Other specified postprocedural states (ICD-10) H/O colonoscopy ?Z98.890 - Other specified postprocedural states (ICD-10) Hx of cholecystectomy ?Z90.49 - Acquired absence of other specified parts of digestive tract (ICD-10) Status post breast lumpectomy ?Z98.890 - Other specified postprocedural states (ICD-10) History of breast biopsy ?Z98.890 - Other specified postprocedural states (ICD-10) Hx of appendectomy ?Z90.49 - Acquired absence of other specified parts of digestive tract (ICD-10) Social History Smoking status: Current every day smoker Highest level of school completed/degree received: 8th grade Little interest or pleasure in doing things: several days Feeling down, depressed, or hopeless: not at all Exam Constitutional Vital Signs, click to edit/add: Last Vital Signs Temp 97.8 F 12/25/24 16:49 Pulse 68 12/25/24 19:53 Resp 18 12/25/24 16:49 BP 128/78 12/25/24 16:49 Pulse Ox 94 L 12/25/24 16:49 O2 Del Method Room Air 12/25/24 16:49 Course Vital Signs Vital signs: Vital Signs Temperature 97.6 F 12/25/24 12:29 Pulse Rate 71 12/25/24 12:29 Respiratory Rate 16 12/25/24 12:29 Blood Pressure 118/70 12/25/24 12:29 Pulse Oximetry 99 12/25/24 12:29 Oxygen Delivery Method Room Air 12/25/24 12:29 Temperature 97.8 F 12/25/24 16:49 Pulse Rate 68 12/25/24 19:53 Respiratory Rate 18 12/25/24 16:49 Blood Pressure 128/78 12/25/24 16:49 Pulse Oximetry 94 L 12/25/24 16:49 Oxygen Delivery Method Room Air 12/25/24 16:49 Medical Decision Making MDM Narrative Medical decision making narrative: Patient seen and examined: Patient will have IV fluids, cardiac workup done, lab testing, urine and diarrhea. Patient has stage III kidney disease. 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 Differential diagnosis includes but is not limited to: Dehydration, DARYL, electrolyte abnormality, UTI, OK, ACS, stool infection Diagnostics and management: Patient will have laboratory studies Relevant laboratory interpretation: White blood cell count 5.4, H&H 11/101, patient hemoconcentrated. CO2 17; patient BUN is 68/2.48. Patient's BUN and creatinine in February 2024 was 42 and 1.3. Reevaluation: Patient felt better after 1 L of IV fluid. Patient wanted to go home, patient was given a second liter of fluid and educated on dehydration and DARYL. Shared decision making: I discussed with the patient the necessary laboratory findings and radiological findings. Social barriers to healthcare: There are no food insecurities, there is no issue with transportation, there are no insurance barriers. Disposition: I discussed with the patient at 0 that her BUN and creatinine are elevated compared to last February. Patient CO2 level is also 17. We still do not have a urine sample, we do have stool cultures but the urine has been contaminated with stool. We still need a stool culture. I did speak to the hospitalist, at 1535. He agrees with admission for observation, he would like a CT of the abdomen and pelvis without contrast to make sure there is no obstruction before patient can be brought upstairs for admission. We will update him with the results of CT. Patient does feel much better after 2 L of IV fluid. Patient was given maintenance fluids, along with ice water that I gave patient. She can have dinner. Patient had aggressive IV fluid resuscitation with 2 L of IV fluid. Critical care time 31 minutes exclusive from separate billable procedures that were performed. The following was considered in the determination of critical care but not limited to the level of medical decision making, intensive cardiac and/or respiratory monitoring, frequent vital sign monitoring, evaluation of laboratory studies, evaluation of radiographic studies, oxygen monitoring, and constant monitoring and speaking to family at bedside Lab Data Lab results reviewed: Yes I reviewed the patient's lab results Labs: Lab Results 12/25/24 12/25/24 Range/Units 12:40 14:05 WBC 5.4 (4.0-11.0) 10^3/uL RBC 3.55 L (4.20-5.40) 10^6/uL Hgb 11.3 L (12.0-16.0) g/dL Hct 36.0 (36.0-48.0) % MCV 101.4 H (81.0-99.0) fL MCH 31.8 (26.7-34.0) pg MCHC 31.4 (29.9-35.2) g/dL RDW 14.2 (11.0-15.0) % Plt Count 197 (150-450) 10^3/uL MPV 9.3 L (9.5-13.5) fL Neut % (Auto) 52.7 (43.0-75.0) % Lymph % (Auto) 42.8 (20.5-60.0) % [place] % (Auto) 3.2 (1.7-12.0) % Eos % (Auto) 0.7 L (0.9-7.0) % Baso % (Auto) 0.4 (0.2-2.0) % Neut # (Auto) 2.8 (1.4-6.5) 10^3/uL Lymph # (Auto) 2.3 (1.2-3.8) 10^3/uL [place] # (Auto) 0.2 L (0.3-0.8) 10^3/uL Eos # (Auto) 0.0 (0.0-0.7) 10^3/uL Baso # (Auto) 0.0 (0.0-0.1) 10^3/uL Abs Immat Gran (auto) 0.01 (0.00-0.03) 10^3/uL Imm/Tot Granulo (auto) 0.2 (0.0-0.5) % Sodium 137 (136-145) mmol/L Potassium 4.7 (3.5-5.1) mmol/L Chloride 107 (98-107) mmol/L Carbon Dioxide 17.0 L (21.0-32.0) mmol/L Anion Gap 17.7 BUN 68.0 H (7.0-18.0) mg/dL Creatinine 2.48 H (0.55-1.02) mg/dL Est GFR ( Amer) 23 L (>=60 mL/min/1.73m^2) Est GFR (Non-Af Amer) 19 L (>=60 mL/min/1.73m^2) BUN/Creatinine Ratio 27.4 Glucose 106 (74-106) mg/dL Lactate 1.0 (0.4-2.0) mmol/L Calcium 9.0 (8.5-10.1) mg/dL Total Bilirubin 0.6 (0.2-1.0) mg/dL AST 27 (15-37) U/L ALT 27 (14-59) U/L Alkaline Phosphatase 96 (46-116) U/L Troponin I High Sens 6.3 (4.0-51.3) pg/mL Total Protein 8.0 (6.4-8.2) g/dL Albumin 3.3 L (3.4-5.0) g/dL Globulin 4.7 g/dL Albumin/Globulin Ratio 0.7 Stool Occult Blood Negative C. difficile Toxin PCR Negative ECG Data Attestation: I personally reviewed and interpreted this ECG as follows: (EKG interpretation. Normal sinus rhythm at 72 beats a minute. Normal axis deviation. No acute ST elevation, no acute ectopy. QTc of 416.) Discharge Plan Discharge Chief Complaint: Nausea/Vomiting/Diarrhea Clinical Impression: DARYL (acute kidney injury), Acute dehydration, Diarrhea Patient Disposition: Admitted As Inpatient Condition: Fair Discharge Date/Time: 12/25/24 16:44
[2024-12-25] MEDS: 0.9 % SODIUM CHLORIDE 1,000 ML 150 ML IV (16:43)
[2024-12-25 16:54] LABS: C. Difficile PCR NEGATIVE
--- NOTE | 2024-12-25 17:56 | PM.IMHP1 ---
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 Hx obtained from the pt's chart, pt and daughter at bedside, and ED staff. She states that 1 week ago, described as watery diarrhea with no mucus or blood. Started to form yesterday however still having 3-5 times bouts of diarrhea. She did not have any recent cookout or food intake prior to the onset of symptoms, no recent antibiotic use, recent traveling, recent change in water sources. No sick contacts with similar presentation. No fever no chills no nausea no vomiting no abdominal pain. No change urinary or bowel habits. Denies any NSAID intake prior to the onset of the symptoms denies taking any new or different medication for the last few weeks prior to the onset of the symptoms in the ED, patient's blood pressure, heart rate, oxygen saturation, pulse were all normal. She was hemodynamically stable in terms of her vital signs. Labs showed no leukocytosis, hemoglobin at 11.3 with MCV 100.4 which similar to her baseline. Platelets were 191,000. She did have bicarb of 17 with no anion gap, BUN was 68 and creatinine of 2.48, clearly the range from her baseline with creatinine of 1.4 back in February 2024, her potassium was 4.7, and patient is making urine. In the ED, patient received 2 L of IV fluid and was started on 150 mL/h for a total of 1 L Review of Systems ROS Status of ROS 10 or more systems reviewed and unremarkable except as noted in history and below [facility] Medical History (Updated 12/25/24 @ 18:08 by Charity Zuluaga MD) Renal cyst ?N28.1 - Cyst of kidney, acquired (ICD-10) Thyroid nodule ?E04.1 - Nontoxic single thyroid nodule (ICD-10) Osteoporosis ?M81.0 - Age-related osteoporosis without current pathological fracture (ICD-10) HTN (hypertension) ?I10 - Essential (primary) hypertension (ICD-10) Idiopathic thrombocytopenia ?D69.3 - Immune thrombocytopenic purpura (ICD-10) Surgical History (Updated 04/16/24 @ 15:34 by Emilia Lanza) H/O fine needle aspiration with imaging guidance ?Z98.890 - Other specified postprocedural states (ICD-10) H/O: hysterectomy ?Z90.710 - Acquired absence of both cervix and uterus (ICD-10) S/P ORIF (open reduction internal fixation) fracture ?Z98.890 - Other specified postprocedural states (ICD-10) ?Z87.81 - Personal history of (healed) traumatic fracture (ICD-10) Status post blepharoplasty of both eyes ?Z98.890 - Other specified postprocedural states (ICD-10) H/O colonoscopy ?Z98.890 - Other specified postprocedural states (ICD-10) Hx of cholecystectomy ?Z90.49 - Acquired absence of other specified parts of digestive tract (ICD-10) Status post breast lumpectomy ?Z98.890 - Other specified postprocedural states (ICD-10) History of breast biopsy ?Z98.890 - Other specified postprocedural states (ICD-10) Hx of appendectomy ?Z90.49 - Acquired absence of other specified parts of digestive tract (ICD-10) Social History Smoking status: Current every day smoker Highest level of school completed/degree received: 8th grade Little interest or pleasure in doing things: several days Feeling down, depressed, or hopeless: not at all Meds Home Medications and Allergies Home Medications ?Medication ?Instructions ?Recorded ?Confirmed ?Type fostamatinib 100 mg tablet 100 mg PO BID 03/12/23 12/25/24 History (Tavalisse) hydrochlorothiazide 25 mg tablet 25 mg PO DAILY 03/12/23 12/25/24 History losartan 25 mg tablet 50 mg PO .QHS 03/12/23 12/25/24 History pilocarpine HCl 5 mg tablet 5 mg PO TID 03/12/23 04/16/24 History spironolactone 25 mg tablet 25 mg PO DAILY 03/12/23 12/25/24 History ergocalciferol (vitamin D2) 1,250 1,250 mcg PO QWEEK 11/28/23 04/16/24 History mcg (50,000 unit) capsule cyclobenzaprine 5 mg tablet 5 mg PO .QHS 12/25/24 12/25/24 History metoprolol succinate 25 mg 12.5 mg PO DAILY 12/25/24 12/25/24 History tablet,extended release 24 hr Allergies Allergy/AdvReac Type Severity Reaction Status Date / Time vancomycin AdvReac Mild burning Verified 12/25/24 12:33 dpt vaccine Allergy Rash Uncoded 12/25/24 12:33 Exam Narrative Exam Narrative: General: The patient appears well and in no apparent distress. Patient is resting comfortably in bed. Very cooperative and pleasant. Skin: Warm, dry, no pallor noted. There is no rash noted. No petechiae, purpura. Head: Normocephalic, atraumatic Eye: Normal conjunctiva, no drainage, EOMI. PERRL Ears, Nose, Mouth, and Throat: oral mucosa is dry. Nares patent. Mouth without vesicles. Cardiovascular: Regular Rate and Rhythm, no murmur, gallop, rub. Patient has no tenderness to palpation to bilateral Anterior, lateral, posterior chest wall. Patient has no reproducible tenderness to palpation to respiratory: Patient is in no distress, no accessory muscle use, lungs are clear to auscultation, no wheezing, rales or rhonchi Back: non-tender, no CVA tenderness bilaterally to percussion GI: Soft, obese, no tenderness to palpation, no masses appreciated. No rebound, guarding, or rigidity noted. No distention Musculoskeletal: Patient has full range of motion of all of the extremities, no motor, sensory, or focal neurological deficits Neurological: A&O x4, normal speech Constitutional Vital Signs, click to edit/add: Last Vital Signs Temp 97.8 F 12/25/24 16:49 Pulse 61 12/25/24 16:49 Resp 18 12/25/24 16:49 BP 128/78 12/25/24 16:49 Pulse Ox 94 L 12/25/24 16:49 O2 Del Method Room Air 12/25/24 16:49 Internal Medicine - H&P: Reslt Labs Labs: Short CBC 12/25/24 Range/Units 12:40 WBC 5.4 (4.0-11.0) 10^3/uL Hgb 11.3 L (12.0-16.0) g/dL Hct 36.0 (36.0-48.0) % Plt Count 197 (150-450) 10^3/uL BMP 12/25/24 12:40 Sodium 137 Potassium 4.7 Chloride 107 Carbon Dioxide 17.0 L BUN 68.0 H Creatinine 2.48 H Glucose 106 Calcium 9.0 Liver Function 12/25/24 Range/Units 12:40 Total Bilirubin 0.6 (0.2-1.0) mg/dL AST 27 (15-37) U/L ALT 27 (14-59) U/L Alkaline Phosphatase 96 (46-116) U/L Albumin 3.3 L (3.4-5.0) g/dL Assessment and Plan Assessment and Plan (1) DARYL (acute kidney injury): (2) Dehydration: (3) Prerenal azotemia: (4) Diarrhea: (5) Idiopathic thrombocytopenia: (6) HTN (hypertension): (7) Osteoporosis: (8) Thyroid nodule: Plan DARYL in the setting of Pre-renal Azotemia and Dehydration from an acute diarrheal GI illness CT abdomen pelvis showed no obstructive uropathy -Admit pt to medical floor with telemetry -Start NS 50 ml/hr and pt can eat and drink -Awaiting Stool studies, if negative C. diff I will start her on some loperamide -I reconciled pt's medications, I held her spironolactone, HCTZ, losartan and will keep her metoprolol -Discussed the plan of management with the pt and her daughter -Given her thrombocytopenia, I will start her on SCDs instead of HSQ
[2024-12-25 18:35] LABS: Bilirubin Urine NEGATIVE (NEGATIVE); Blood Urine NEGATIVE (NEGATIVE); Clarity Urine CLEAR (CLEAR); Color Urine LT. YELLOW (YELLOW); Glucose Urine UA NEGATIVE (NEGATIVE); Ketones Urine NEGATIVE (NEGATIVE); Leukocyte Esterase Urine NEGATIVE (NEGATIVE); Nitrite Urine NEGATIVE (NEGATIVE); Protein Urine NEGATIVE (NEG/TRACE); Specific Gravity Urine 1.015 (1.005-1.025); Urobilinogen Urine 0.2 EU/dL (0.2-1.0)
[2024-12-25 18:39] LABS: Sodium Urine Random 106 mmol/L (30-90)
[2024-12-25 18:43] LABS: Bacteria Urine TRACE #/HPF (NONE SEEN); Cast Seen? NONE SEEN #/LPF (NONE SEEN); Crystals Seen? None Seen #/HPF (None Seen); Mucus Urine NONE SEEN (NONE SEEN); RBC Urine NONE SEEN #/HPF (0-2); Squamous Epithelial Cell Urine RARE #/LPF (NONE/RARE); Urine Culture Indicated NO; WBC Urine NONE SEEN #/HPF (NONE SEEN)
[2024-12-25 18:59] LABS: Anion Gap 17.2; BUN Creatinine Ratio 31.5; Calcium 8.2 mg/dL (8.5-10.1); Carbon Dioxide 17.7 mmol/L (21.0-32.0); Chloride 111 mmol/L (98-107); Estimated GFR (African America 34 (>=60 mL/min/1.73m^2); Estimated GFR (Non-African Ame 28 (>=60 mL/min/1.73m^2); Glucose 105 mg/dL (74-106); Potassium 4.9 mmol/L (3.5-5.1); Sodium 141 mmol/L (136-145)
[2024-12-26] VITALS (17 sets, daily range): BP systolic 117–155; BP diastolic 54–79; PULSE 58–80; TEMP 36.6–37; O2SAT 95–97
[2024-12-26 05:55] LABS: Basophils Percent Auto 0.4 % (0.2-2.0); Eosinophils Absolute Auto 0.1 10^3/uL (0.0-0.7); Hematocrit 32.2 % (36.0-48.0); Hemoglobin 10.1 g/dL (12.0-16.0); Immature Granulocytes Abs Auto 0.01 10^3/uL (0.00-0.03); Immature Granulocytes Pct Auto 0.2 % (0.0-0.5); Lymphocytes Absolute Auto 2.2 10^3/uL (1.2-3.8); Mean Corpuscular HGB Conc 31.4 g/dL (29.9-35.2); Mean Corpuscular Hemoglobin 32.1 pg (26.7-34.0); Mean Corpuscular Volume 102.2 fL (81.0-99.0); Mean Platelet Volume 9.2 fL (9.5-13.5); Monocytes Absolute Auto 0.2 10^3/uL (0.3-0.8); Neutrophils Absolute Auto 2.3 10^3/uL (1.4-6.5); Neutrophils Percent Auto 48.4 % (43.0-75.0); Platelet Count 173 10^3/uL (150-450); Red Blood Count 3.15 10^6/uL (4.20-5.40); Red Cell Distribution Width 14.3 % (11.0-15.0); White Blood Count 4.8 10^3/uL (4.0-11.0)
[2024-12-26 06:18] LABS: Alanine Aminotransferase 20 U/L (14-59); Albumin Level 2.6 g/dL (3.4-5.0); Alkaline Phosphatase 79 U/L (46-116); Anion Gap 17.2; Aspartate Amino Transferase 17 U/L (15-37); BUN Creatinine Ratio 32.9; Bilirubin Total 0.3 mg/dL (0.2-1.0); Calcium 8.3 mg/dL (8.5-10.1); Carbon Dioxide 17.6 mmol/L (21.0-32.0); Chloride 112 mmol/L (98-107); Estimated GFR (African America 43 (>=60 mL/min/1.73m^2); Estimated GFR (Non-African Ame 36 (>=60 mL/min/1.73m^2); Glucose 88 mg/dL (74-106); Potassium 4.8 mmol/L (3.5-5.1); Sodium 142 mmol/L (136-145); Total Protein 6.6 g/dL (6.4-8.2)
[2024-12-26 06:20] LABS: Albumin Globulin Ratio 0.7
--- OUTSIDE RECORDS SUMMARY | 2024-12-26 08:09 | XMS_ITS | Encounter Summary ---
Author Organization [facility] Address [address] [place] [address] Care Team Providers Care Wellness Nurse Rn Name Role Phone Stephanie Dumont NP Unavailable [phone] Wilfred Polanco MD Primary Care Provider [phone] Stephanie Dumont ORTHOTIST/PROSTHETIST Unavailable [phone] Wilfred Polanco MD Primary Care Provider [phone] Encounter Details Date Type Department Care Team ([facility] Contact Info) Description 09/11/2023 Clinisync Result [...] Upcoming Encounters Date Type Department Care Team ([facility] Contact Info) Description 01/15/2025 2:20 PM EDT Office Visit [facility] [address] [place] [address] Stephanie Dumont NP [address] [place] [phone] 04/02/2025 11:10 AM EDT Office Visit [facility] [address] [place] [phone] Nadia Mercado MD [address] [place] [address] documented as of this encounter Procedures Procedure [...] CLINISYNC F inal Result Performing Organization Address City/[facility]/ZIP Co de Phone Number JULIAN TB * [...] CLINISYNC F inal Result Performing Organization Address City/[facility]/ZIP Co de Phone Number [facility] * [facility] PTH, INTRAOPERATIVE (09/11/2023 12:27 PM EST) PTH, INTACT 38 15 - 65 pg/mL [facility] Comment: Performed at: [address] [id number] [employer] Supervisor: Danilo Garrett PhD, Phone: [phone] 09/11/2023 12:2 7 PM EST 09/11/2023 12:31 PM EST Narrative CLINISYNC - 09/12/2023 11:09 AM EST Generic External Data Provider CLINISYNC F inal Result Performing Organization Address [facility] Phone Number CLINROZNC TB * [facility] [...] CLINISYNC F ina Result Performing Organization Address [facility] Phone Number CLINFADI TB * [facility] FERRITIN (09/11/2023 12:27 PM EST) FERRITIN 80.0 8.0 - 252.0 ng/mL TB 09/11/2023 12:2 7 PM EST 09/11/2023 12:31 PM EST Narrative CLINISYNC - 09/11/2023 1:57 PM EST Generic External Data Provider CLINISYNC F inal Result Performing Organization Address [facility] Phone Number CLINFADI TB * [...] CLINISYNC F inal Result Performing Organization Address [facility]/State/ZIP Co de Phone Number [facility] * ALL MAGNESIUM (09/11/2023 12:27 PM EST) MAGNESIUM 2.1 1.8 - 2.4 mg/dL TB 09/11/2023 12:2 7 PM EST 09/11/2023 12:31 PM EST Narrative CLINISYNC - 09/11/2023 12:54 PM EST Generic External Data Provider CLINISYNC F inal Result Performing Organization Address [facility] Co de Phone Number [facility] * ALL URIC ACID (09/11/2023 12:27 PM EST) URIC ACID 5.8 2.6 - 6.0 mg/dL TB 09/11/2023 12:2 7 PM EST 09/11/2023 12:31 PM EST Narrative CLINISYNC - 09/11/2023 12:54 PM EST Generic External Data Provider CLINISYNC F inal Result Performing Organization Address [facility] Co de Phone Number [facility] * (ABNORMAL) ALL RENAL FUNCTION PANEL (09/11/2023 [...] 0.55 - 1.02 mg/dL TBH TBH EGFR-AF RUSSIAN 60 >=60 TBH TBH EGFR-NON AF RUSSIAN 49(L) >=60 TBH BUN CREATININE RATIO 23.9 TBH CALCIUM 8.6 8.5 - 10.1 mg/dL TBH PHOSPHORUS 3.0 2.6 - 4.7 mg/dL [facility]H ALBUMIN LEVEL 3.1(L) 3.4 - 5.0 g/dL TBH 09/11/2023 12:2 7 PM EST 09/11/2023 12:31 PM EST Narrative CLINISYNC - 09/11/2023 12:54 PM EST Generic External Data Provider CLINISYNC F inal Result CLINISYNC TB * (ABNORMAL) [facility] CBC WITH PLATELET NO DIFFERENTIAL (09/11/2023 12:27 PM EST) [facility] TB WBC 5.1 4.0 - 11.0 10 [...] EST Narrative 09/11/2023 12:21 PM EST The [address] [address] Ultrasound Report Signed Patient: JASPREET LEO MR#: [id number] : 1950 Acct:[id number] Age/Sex: 72 / F ADM Date: 09/11/23 Loc: US Attending Dr: CATALINA ARRIOLA Ordering Physician: CATALINA ARRIOLA Date of Service: 09/11/23 Procedure(s): US renal BI Accession Number(s): [id number] cc: Shaikh Catrina Biswas; CATALINA ARRIOLA [place] [address] Patient Name: JASPREET LEO MRN: [id number] date: 1950 Sex: F Assigned Patient Location: US Current Patient Location: US Accession/Order Number: [id number] Exam Date: 09/11/2023 11:30 Report Date: 09/11/2023 [...] Signed By: 09/11/23 1221 DD/ 1218 TD/TT: End User Support Specialist: Procedure Note Radiology, Radiologist, - 09/11/2023 [place] [address] Ultrasound Report Signed Patient: JASPREET LEO ZMR#: [id number] : 1950cct:[id number] Age/Sex: 72 / FADM Date: 09/11/23 Loc: US Attending Dr: CATALINA ARRIOLA Ordering Physician: CATALINA ARRIOLA Date of Service: 09/11/23 Procedure(s): US renal BI Accession Number(s): [id number] cc: Shaikh Catrina Biswas; CATALINA ARRIOLA The [place] [id number] Patient Name: JASPREET LEO MRN: [id number] date: 1950 Sex: F Assigned Patient Location: US Current Patient Location: US Accession/Order Number: [id number] Exam Date: 09/11/2023 11:30 Report Date: 09/11/2023 [...] M.D. Signed By:09/11/23 1221 DD/ 1218 TD/TT: End User Support Specialist: us Generic External Data Provider [facility] Final Result documented in this encounter Visit Diagnoses Not on filedocumented in this encounter Care Teams Wellness Nurse Rn Relationship Specialty Start Date End Date Wilfred Polanco MD [address] [place] [phone] PCP - General Family Medicine 08/17/23 04/23/24 Stephanie Dumont NP [address] [place] [address] PCP - [facility] 10/09/23 12/07/70 Wilfred Polanco MD [address] [place] [phone] PCP - General Family Medicine 05/13/24 Stephanie Dumont NP [address] [place] [phone] Nurse Practitioner Family Medicine 04/09/23 documented as of this encounter
--- OUTSIDE RECORDS SUMMARY | 2024-12-26 08:09 | XMS_ITS | Encounter Summary ---
Author Organization [facility] Address [address] [facility] [place] [address] Care Team Providers Care Filter Press Tender Name Role Phone Stephanie Dumont NP Unavailable [phone] Wilfred Polanco MD Primary Care Provider [phone] Stephanie Dumont NP Unavailable [phone] Wilfred Polanco MD Primary Care Provider [phone] Encounter Details Date Type Department Care Team (Late Contact Info) Description 11/27/2023 Orders Only [facility] [address] [place] [address] Stephanie Dumont NP [address] [place] [address] Social History Tobacco Use Types Packs/Day [...] Upcoming Encounters Date Type Department Care Team ([facility] Contact Info) Description 01/15/2025 2:20 PM EDT Office Visit [facility] [address] [address] Stephanie Dumont NP [address] [place] [address] 04/02/2025 11:10 AM EDT Office Visit [facility] [address] [facility] [address] [place] [address] Nadia Mercado MD [address] [place] [address] [place] [address] documented as of this encounter Procedures Procedure Name Priority Date/Time Associated Diagnosis Comments MISCELLANEOUS LAB TEST Routine 11/24/2023 8:28 AM EDT documented in this encounter Results * - Miscellaneous Test (11/24/2023 8:28 AM EDT) Stephanie Dumont AUTOMOTIVE WHOLESALE PARTS ADVISOR LAB BLOOD ORDERABLES Final Resu lt documented in this encounter Visit Diagnoses Not on filedocumented in this encounter Care Teams Filter Press Tender Relationship Specialty Start Date End Date Wilfred Polanco MD [address] [place] [address] PCP - General Family Medicine 08/17/23 04/23/24 Stephanie Dumont NP [address] [place] [address] [place] [address] PCP - [facility] 10/09/23 12/07/70 Wilfred Polanco MD [address] [place] [address] PCP - General Family Medicine 05/13/24 Stephanie Dumont NP [address] [place] [address] Nurse Practitioner Family Medicine 04/09/23 documented as of this encounter
--- OUTSIDE RECORDS SUMMARY | 2024-12-26 08:09 | XMS_ITS | Encounter Summary ---
Author Organization [facility] Address [address] [facility] [place] [address] Care Team Providers Care Assistant Education Director Name Role Phone Stephanie Dumont NP Unavailable [phone] Wilfred Polanco MD Primary Care Provider [phone] Stephanie Dumont BOX OFFICE MANAGER Unavailable [phone] Wilfred Polanco MD Primary Care Provider [phone] Encounter Details Date Type Department Care Team (Late Contact Info) Description 04/16/2024 Orders Only [facility] [address] [address] Stephanie Dumont NP [address] [place] [address] Social History Tobacco Use Types [...] Upcoming Encounters Date Type Department Care Team ([facility] Contact Info) Description 01/15/2025 2:20 PM EDT Office Visit [facility] [address] [address] Stephanie Dumont NP [address] [place] [address] 04/02/2025 11:10 AM EDT Office Visit [facility] [address] [facility] [address] [place] [address] Nadia Mercado MD [address] [facility] [address] [place] [address] documented as of this encounter Procedures Procedure Name Priority Date/Time Associated Diagnosis Comments BIOPSY THYROID Routine 04/16/2024 4:42 PM EDT documented in this encounter Results * Biopsy thyroid (04/16/2024 4:42 PM EDT) us Stephanie Dumont NP IN CLINIC/BEDSIDE ORDERABLES Fi nal Result documented in this encounter Visit Diagnoses Not on filedocumented in this encounter Care Teams Assistant Education Director Relationship Specialty Start Date End Date Wilfred Polanco MD [address] [place] [address] PCP - General Family Medicine 08/17/23 04/23/24 Stephanie Dumont NP [address] [place] [address] PCP - [facility] 10/09/23 12/07/70 Wilfred Polanco MD [address] [place] [address] PCP - General Family Medicine 05/13/24 Stephanie Dumont NP [address] [place] [address] Nurse Practitioner Family Medicine 04/09/23 documented as of this encounter
--- OUTSIDE RECORDS SUMMARY | 2024-12-26 08:09 | XMS_ITS | Encounter Summary ---
Author Organization [facility] Address [address] [place], [place] [address] Care Team Providers Care Mail Service Coordinator Name Role Phone Shaikh THEODORE Biswas Primary Care Provider [phone] Stephanie Dumont Primary Care Provider Unavailabl e Source Comments In the event this information is protected by the Federal Confidentiality of Alcohol and Drug AbusePatient Records regulations: The Federal rules restrict any use of the information to criminally investigate or prosecute any alcohol or drug abuse patient.[facility] Encounter Details Date Type Department Care [...] N ot on file 07/24/2022 Data from: https://www.neighborhoodatlas.medicine.[facility].edu/. Last address used for calculation [address] [...] Author No 08/04/2022 2:24 PM Josi Berrios APRN.ANESTHESIA ATTENDING * Are you blind or do you have serious difficulty seeing, even when wearing glasses? Answer Date of Assessment Author No 08/04/2022 2:24 PM Josi Berrios APRN.ANESTHESIA ATTENDING * Do you have serious difficulty walking or climbing stairs? Answer Date of Assessment Author No 08/04/2022 2:24 PM Josi Berrios APRN.ANESTHESIA ATTENDING * Do you have difficulty dressing or bathing? Answer Date of Assessment Author No 08/04/2022 2:24 PM Josi Berrios APRN.ANESTHESIA ATTENDING * Because of a physical, mental, or emotional condition, do you have difficulty doing errands alone such as visiting a doctor's office or shopping? Answer Date of Assessment Author No 08/04/2022 2:24 PM Josi Berrios APRN.ANESTHESIA ATTENDING documented as of this encounter Mental Status * Because of a physical, mental, or emotional condition, do you have serious difficulty concentrating, remembering, or making decisions? Answer Entry Date Author No 08/04/2022 2:24 PM Josi Berrios APRN.ANESTHESIA ATTENDING documented in this encounter Plan of Treatment Upcoming Encounters Date Type Department Care Team (Latest Contact Info) Description 01/03/2025 1:45 PM EDT Office Visit [facility] [address] [place] [address] [place] [address] 6 week follow up, labs, B12 & Aranesp 01/03/2025 2:00 PM EDT Visit (SP) Office Hematology/Oncology [address] [place] [address] [place] [address] Josi Burris APRN.ANESTHESIA ATTENDING [address] [facility] [facility] [place] [address] 6 week follow up, labs, B12 & Aranesp 01/03/2025 2:30 PM EDT [facility] Center Hematology/Oncology [address] [facility] [place] [address] 6 week follow up, labs, B12 & Aranesp documented as of this encounter Visit Diagnoses Not on filedocumented in this encounter Care Teams Mail Service Coordinator Relationship Specialty Start Date End Date Shaikh Biswas MD [address] [place] [address] PCP - General Primary Care 09/15/22 12/18/22 Stephanie Dumont [address] [place] [address] PCP - General 04/20/23 documented as of this encounter
--- OUTSIDE RECORDS SUMMARY | 2024-12-26 08:09 | XMS_ITS | Referral Summary ---
Author Organization [facility] Address [address] [address] Care Team Providers Care Application Coordinator Name Role Phone Stephanie Dumont MD Primary Care Provider [phone] Allergies Active Allergy Reactions Criticality Noted Date Comments Tetanus Vaccines And Toxoid Itching,Unknown,Othe r 03/03/2016 Vancomycin Itching,Other,Unknow n 03/03/2016 States had burning sensation t/o entire body. (Infectious disease) States medication was given too fast. Flushing Burning sensation Medications hydroCHLOROthia zide (HYDRODiuril) 25 mg tablet Take 25 mg by mouth in the morning. Active losartan (Cozaar) 25 mg tablet Take 50 mg by mouth. 2 Active metoprolol succinate XL (Toprol-XL) 25 mg 24 hr tablet Take 12.5 mg by mouth in the morning. 4 Active spironolactone (Aldactone) 25 mg tablet Take 25 mg by mouth in the morning. Active pilocarpine (Salagen) 5 mg tablet Take 5 mg by mouth 3 times a day. 3 Active alendronate (Fosamax) 70 mg tablet PLEASE SEE ATTACHED FOR DETAILED DIRECTIONS 3 Active ergocalciferol (Vitamin D-2) 1.25 MG (11535 Units) capsule Take 50,000 Units by mouth [...] Recorded Patient Health Questionnaire-2 Score 0 05/31/2024 Comments Unknown Sex and Gender Information Value Date Recorded Sex Assigned at Female 05/21/2024 1:35 PM EST Legal Sex Female 10:13 PM EDT Gender Identity Female 05/21/2024 1:35 PM EST [...] 05/31/2024 10:32 AM EST Plan of Treatment Not on file Insurance [place] [address] Care Teams Application Coordinator Relationship Specialty Start Date End Date Stephanie Dumont MD [address] [place] [address] PCP - General Nurse Practitioner 05/16/24
--- OUTSIDE RECORDS SUMMARY | 2024-12-26 08:09 | XMS_ITS | Encounter Summary ---
Author Organization [facility] Address [address] [facility] [place] [address] Care Team Providers Care Wire Chief Name Role Phone Stephanie Dumont RN CLINICAL DOCUMENTATION SPECIALIST Unavailable [phone] Stephanie Dumont RN CLINICAL DOCUMENTATION SPECIALIST Unavailable [phone] Wilfred Polanco MD Primary Care Provider Encounter Details Date Type Department Care Team ([facility] Contact Info) Description 05/06/2024 Orders Only [facility] [address] [place] [address] Stephanie Dumont, JORDI [address] [place] [address] Social History Tobacco Use Types Packs/Day Years [...] Care Team ([facility] Contact Info) Description 01/15/2025 2:20 PM EDT Office Visit [facility] [address] [place] [address] Stephanie Dumont, JORDI [address] [place] [address] 04/02/2025 11:10 AM EDT Office Visit [facility] [address] [place] [address] [place] [address] Nadia Mercado MD [address] [facility] [address] [place] [address] documented as of this encounter Procedures Procedure Name Priority Date/Time Associated Diagnosis Comments BIOPSY THYROID Routine 05/06/2024 10:28 AM EDT documented in this encounter Results * Biopsy thyroid (05/06/2024 10:28 AM EDT) us Stephanie Dumont RN CLINICAL DOCUMENTATION SPECIALIST IN CLINIC/BEDSIDE ORDERABLES Fi nal Result documented in this encounter Visit Diagnoses Not on filedocumented in this encounter Care Teams Wire Chief Relationship Specialty Start Date End Date Stephanie Dumont NP [address] [place] [address] PCP - [facility] 10/09/23 12/07/70 Wilfred Polanco MD [address] [place] [address] PCP - General Family Medicine 05/13/24 Stephanie Dumont NP [address] [place] [address] Nurse Practitioner Family Medicine 04/09/23 documented as of this encounter
--- OUTSIDE RECORDS SUMMARY | 2024-12-26 08:09 | XMS_ITS | Encounter Summary ---
Author Organization [facility] Address [address] [place] [facility] [place] [address] Care Team Providers Care Director Translation Name Role Phone Stephanie Dumont NP Unavailable [phone] Wilfred Polanco MD Primary Care Provider [phone] Stephanie Dumont NP Unavailable [phone] Wilfred Polanco MD Primary Care Provider [phone] Encounter Details Date Type Department Care Team ([facility] Contact Info) Description 04/16/2024 Clinisync Result Encounter N[facility] External Department Unsolicited Stephanie Dumont NP [address] [place] [address] Social History Tobacco Use Types Packs/Day Years [...] Upcoming Encounters Date Type Department Care Team ([facility] Contact Info) Description 01/15/2025 2:20 PM EDT [facility] [address] [address] Stephanie Dumont NP [address] [place] [address] [address] 04/02/2025 11:10 AM EDT Office Visit [facility] [address] [facility] 130 [place] [address] Nadia Mercado MD [address] [facility] 130 [place] [address] documented as of this encounter Procedures Procedure Name Priority Date/Time Associated Diagnosis Comments US BIOPSY THYROID 04/16/2024 3:5 5 PM EDT documented in this encounter Results * US BIOPSY THYROID (04/16/2024 3:55 PM EDT) Anatomical Region Laterality Modality Other 04/16/2024 3:55 PM EDT Narrative 04/16/2024 3:57 PM EDT The [address] [address] Ultrasound Report Signed Patient: JASPREET LEO MR#: [id number] : 1950 Acct:[id number] Age/Sex: 73 / F ADM Date: 04/16/24 Loc: US Attending Dr: Stephanie Dumont SPECIAL EDUCATION RESOURCE TEACHER Ordering Physician: Stephanie Dumont NP Date of Service: 04/16/24 Procedure(s): US biopsy thyroid Accession Number(s): [id number] cc: Stephanie Dumont NP [address] [address] Patient Name: JASPREET LEO MRN: [id number] date: 1950 Sex: F Assigned Patient Location: US Current Patient Location: Accession/Order Number: [id number] Exam Date: 04/16/2024 14:00 Report Date: 04/16/2024 [...] Pathology results are pending. Electronically authenticated by: THA ZUNIGA Date: 04/16/2024 15:55 Dictated By: Tha Zuniga M.D. Signed By: 04/16/24 1557 DD/ 1555 TD/TT: Riveting Machine Operator Automatic: Procedure Note Radiology, Radiologist, MD - 04/16/2024 [place] [address] Ultrasound Report Signed Patient: JASPREET LEO R#: [id number] : 1950cct:[id number] Age/Sex: 73 / FADM Date: 04/16/24 Loc: US Attending Dr: Stephanie Dumont NP Ordering Physician: Stephanie Dumont NP Date of Service: 04/16/24 Procedure(s): US biopsy thyroid Accession Number(s): [id number] cc: Stephanie Dumont NP The [address] [address] Patient Name: JASPREET LEO MRN: [id number] date: 1950 Sex: F Assigned Patient Location: US Current Patient Location: Accession/Order Number: [id number] Exam Date: 04/16/2024 14:00 Report Date: 04/16/2024 [...] Pathology results are pending. Electronically authenticated by: THA ZUNIGA Date: 04/16/2024 15:55 Dictated By: Tha Zuniga M.D. Signed By:04/16/24 1557 DD/ 1555 TD/TT: Riveting Machine Operator Automatic: us Stephanie Dumont NP [facility] Final Result documented in this encounter Visit Diagnoses Not on filedocumented in this encounter Care Teams Director Translation Relationship Specialty Start Date End Date Wilfred Polanco MD [address] [place] [address] PCP - General Family Medicine 08/17/23 04/23/24 Stephanie Dumont NP [address] [place] [address] PCP - [facility] 10/09/23 12/07/70 Wilfred Polanco MD [address] [place] [address] PCP - General Family Medicine 05/13/24 Stephanie Dumont NP [address] [place] [address] Nurse Practitioner Family Medicine 04/09/23 documented as of this encounter
--- OUTSIDE RECORDS SUMMARY | 2024-12-26 08:09 | XMS_ITS | Encounter Summary ---
Author Organization [facility] Address [address] [facility] [place] [address] Care Team Providers Care Bilingual Teacher Name Role Phone Stephanie Dumont NP Unavailable [phone] Wilfred Polanco MD Primary Care Provider [phone] Stephanie Dumont WARBLE SAW OPERATOR Unavailable [phone] Wilfred Polanco MD Primary Care Provider [phone] Encounter Details Date Type Department Care Team (Late Contact Info) Description 04/04/2024 Orders Only [facility] [address] [place] [address] Stephanie Dumont NP [address] [place] [address] Social History Tobacco Use Types [...] Upcoming Encounters Date Type Department Care Team ([facility] Contact Info) Description 01/15/2025 2:20 PM EDT Office Visit [facility] [address] [place] [address] Stephanie Dumont NP [address] [place] [address] 04/02/2025 11:10 AM EDT Office Visit [facility] [address] [facility] [address] [place] [address] Nadia Mercado MD [address] [facility] [address] [place] [address] documented as of this encounter Procedures Procedure Name Priority Date/Time Associated Diagnosis Comments US THYROID Routine 04/04/2024 1:39 PM EDT documented in this encounter Results * US thyroid (04/04/2024 1:39 PM EDT) Anatomical Region Laterality Modality Head, Neck Ultrasound us Stephanie Dumont NP IMG US PROCEDURES Final Result documented in this encounter Visit Diagnoses Not on filedocumented in this encounter Care Teams Bilingual Teacher Relationship Specialty Start Date End Date Wilfred Polanco MD [address] [place] [address] PCP - General Family Medicine 08/17/23 04/23/24 Stephanie Dumont NP [address] [place] [address] PCP - [facility] 10/09/23 12/07/70 Wilfred Polanco MD [address] [place] [address] PCP - General Family Medicine 05/13/24 Stephanie Dumont NP [address] [place] [address] Nurse Practitioner Family Medicine 04/09/23 documented as of this encounter
--- OUTSIDE RECORDS SUMMARY | 2024-12-26 08:09 | XMS_ITS | Encounter Summary ---
Author Organization [facility] Address [address] [place] [address] Care Team Providers Care Consulting Sales Manager Name Role Phone Stephanie Dumont NP Unavailable [phone] Wilfred Polanco MD Primary Care Provider [phone] Stephanie Dumont TANK SHOP SUPERVISOR Unavailable [phone] Wilfred Polanco MD Primary Care Provider [phone] Encounter Details Date Type Department Care Team (Late Contact Info) Description 09/13/2023 Orders Only [facility] [address] [place] [address] Gilson Sarah MD [address] [place] [address] Social History Tobacco Use Types [...] Department Care Team (Late Contact Info) Description 01/15/2025 2:20 PM EDT Office Visit [facility] [address] [place] [address] Stephanie Dumont NP [address] [place] [address] 04/02/2025 11:10 AM EDT Office Visit [facility] [address] [facility] [address] [place] [address] Nadia Mercado MD [address] [facility] [address] [place] [address] documented as of this encounter Procedures Procedure [...] on filedocumented in this encounter Care Teams Consulting Sales Manager Relationship Specialty Start Date End Date Wilfred Polanco MD [address] [place] [address] PCP - General Family Medicine 08/17/23 04/23/24 Stephanie Dumont NP [address] [place] [address] PCP - [facility] 10/09/23 12/07/70 Wilfred Polanco MD [address] [place] [address] PCP - General Family Medicine 05/13/24 Stephanie Dumont NP [address] [place] [address] Nurse Practitioner Family Medicine 04/09/23 documented as of this encounter
--- OUTSIDE RECORDS SUMMARY | 2024-12-26 08:09 | XMS_ITS | Encounter Summary ---
Author Organization [facility] Address [address] [facility] [place] [address] Care Team Providers Care Occ Ther Name Role Phone Stephanie Dumont NP Unavailable [phone] Wilfred Polanco MD Primary Care Provider [phone] Stephanie Dumont NP Unavailable [phone] Wilfred Polanco MD Primary Care Provider [phone] Encounter Details Date Type Department Care Team ([facility] Contact Info) Description 04/04/2024 Clinisync Result Encounter NOMS External Department Unsolicited Stephanie Dumont NP [address] [address] Social History Tobacco Use Types Packs/Day Years [...] Department Care Team ([facility] Contact Info) Description 01/15/2025 2:20 PM EDT [facility] [address] [address] Stephanie Dumont NP [address] [address] 04/02/2025 11:10 AM EDT Office Visit [facility] 112 [facility] 130 [place] [address] Nadia Mercado MD 112 [facility] 130 [place] [address] documented as of this encounter Procedures Procedure Name Priority Date/Time Associated Diagnosis Comments US THYROID 04/04/2024 1:26 PM EDT documented in this encounter Results * US thyroid (04/04/2024 1:26 PM EDT) Anatomical Region Laterality Modality Head, Neck Ultrasound 04/04/2024 1:26 PM EDT Narrative 04/04/2024 1:28 PM EDT [address] [address] Ultrasound Report Signed Patient: JASPREET LEO MR#: [id number] : 1950 Acct:[id number] Age/Sex: 73 / F ADM Date: 04/03/24 Loc: US Attending Dr: Stephanie Dumont NP Ordering Physician: Stephanie Dumont NP Date of Service: 04/03/24 Procedure(s): US thyroid Accession Number(s): [id number] cc: Stephanie Dumont NP [address] [address] Patient Name: JASPREET LEO MRN: [id number] date: 1950 Sex: F Assigned Patient Location: US Current Patient Location: Accession/Order Number: [id number] Exam Date: 04/03/2024 10:02 Report Date: 04/04/2024 [...] fine needle aspiration (FNA). Electronically authenticated by: THA ZUNIGA Date: 04/04/2024 13:26 Dictated By: Tha Zuniga M.D. Signed By: 04/04/24 1328 DD/ TD/TT: Lorry Weigher: Procedure Note Radiology, Radiologist, MD - 04/04/2024 [place] [address] Ultrasound Report Signed Patient: JASPREET LEO ZMR#: [id number] : 1950cct:[id number] Age/Sex: 73 / FADM Date: 04/03/24 Loc: US Attending Dr: Stephanie Dumont NP Ordering Physician: Stephanie Dumont NP Date of Service: 04/03/24 Procedure(s): US thyroid Accession Number(s): [id number] cc: Stephanie Dumont NP [place] [address] Patient Name: JASPREET LEO MRN: [id number] date: 1950 Sex: F Assigned Patient Location: US Current Patient Location: Accession/Order Number: [id number] Exam Date: 04/03/2024 10:02 Report Date: 04/04/2024 [...] fine needle aspiration (FNA). Electronically authenticated by: THA ZUNIGA Date: 04/04/2024 13:26 Dictated By: Tha Zuniga M.D. Signed By:04/04/24 1328 DD/ 1326 TD/TT: Lorry Weigher: us Stephanie Dumont NP IMG US PROCEDURES Final Result documented in this encounter Visit Diagnoses Not on filedocumented in this encounter Care Teams Occ Ther Relationship Specialty Start Date End Date Wilfred Polanco MD [address] [place] [address] PCP - General Family Medicine 08/17/23 04/23/24 Stephanie Dumont NP [address] [place] [address] PCP - [facility] 10/09/23 12/07/70 Wilfred Polanco MD [address] [address] PCP - General Family Medicine 05/13/24 Stephanie Dumont NP [address] [place] [address] Nurse Practitioner Family Medicine 04/09/23 documented as of this encounter
--- OUTSIDE RECORDS SUMMARY | 2024-12-26 08:09 | XMS_ITS | Encounter Summary ---
Author Organization [facility] Address [address] [facility] [place] [address] Care Team Providers Care Mixing Place Supervisor Name Role Phone Stephanie Dumont SOLAR PHOTOVOLTAIC ELECTRICIAN Unavailable [phone] Stephanie Dumont SOLAR PHOTOVOLTAIC ELECTRICIAN Unavailable [phone] Wilfred Polanco MD Primary Care Provider [phone] Encounter Details Date Type Department Care Team (Late st Contact Info) Description 05/14/2024 Orders Only [facility] [address] [place] [address] Stephanie Dumont SOLAR PHOTOVOLTAIC ELECTRICIAN [address] [place] [address] Social History Tobacco Use Types Packs/Day Years [...] of the time? Yes 05/14 10:45 AM JILLIAN MURILLOA Do you often feel helpless? No 05/14/2024 10 :45 AM JILLIAN MURILLOA Do you prefer to stay at lara [...] 2:20 PM EDT Office Visit [facility] [address] [place] [address] Stephanie Dumont NP [address] [place] [address] 04/02/2025 11:10 AM EDT Office Visit [facility] [address] [facility] [address] [place] [phone] Nadia Mercado MD [address] [facility] [address] [place] [address] documented as of this encounter Procedures Procedure Name Priority Date/Time Associated Diagnosis Comments XR DEXA AXIAL SKELETON* Routine 05/14/2024 1:32 PM EST documented in this encounter Results * XR DEXA AXIAL SKELETON* (05/14/2024 1:32 PM EST) Anatomical Region Laterality Modality Radiographic Maryam ging Stephanie Dumont SOLAR PHOTOVOLTAIC ELECTRICIAN IMG XR PROCEDURES Final Result documented in this encounter Visit Diagnoses Not on filedocumented in this encounter Additional Health Concerns Assessment Noted Time PHQ-9 Depression Total Score: 2 05/14/20 10:42 AM EST documented as of this encounter Care Teams Mixing Place Supervisor Relationship Specialty Start Date End Date Stephanie Dumont NP [address] [place] [phone] PCP - [facility] 10/09/23 12/07/70 Wilfred Polanco MD [address] [place] [address] PCP - General Family Medicine 05/13/24 Stephanie Dumont NP [address] [place] [address] Nurse Practitioner Family Medicine 04/09/23 documented as of this encounter
--- OUTSIDE RECORDS SUMMARY | 2024-12-26 08:09 | XMS_ITS | Clinical Summary ---
Author Organization [facility] Address [address] [place] [address] Care Team Providers Care Windows Administrator Name Role Phone Stephanie Dumont ENGINEER EXHAUSTER Unavailable [phone] Stephanie Dumont NP Unavailable [phone] Wilfred Polanco MD Primary Care Provider [phone] Allergies Active Allergy Reactions Criticality Noted Date Comments Hlyeaax-Kxerqa-Shhkr Pertussis Rash Low 06/06/2023 Vancomycin Other 06/06/2023 [...] 07/11/2024 Active ergocalciferol (Vitamin D-2) 1.25 MG (82059 UT) capsule Take 50,000 Units by mouth 1 (one) time per week Active Fostamatinib Disodium (Tavalisse) 100 MG tablet Take 100 mg by mouth in the morning and 100 mg before bedtime. Active metoprolol succinate XL (Toprol-XL) 25 MG 24 hr tabletIndicatio ns:Coronary artery disease involving naknek coronary artery of naknek heart without angina pectoris TAKE 0.5 TABLETS (12.5 MG) BY MOUTH DAILY DO NOT CRUSH OR CHEW. 45 tablet 1 10/07/2024 Active cyclobenzaprine (Flexeril) 5 MG tablet Take 5 mg by mouth at bedtime 10/11/2024 Active naproxen (Naprosyn) 500 MG tablet Take 500 mg by mouth 2 (two) times a day as needed 11/11/2024 Active Active Problems Problem Noted Date Diagnosed Date Chronic kidney disease, stage 3b 12/25/2024 Assessment & Plan (12/25/2024 6:03 AM EDT): Goal control blood pressures Check labs semi annually as well as prn sxs changes Family history of cancer 08/15/2024 Assessment & Plan (08/15/2024 11:15 AM EST): Sister: breast Nieces: pancreatic: X3 Father: bone cancer Niece: colon cancer Encounter for subsequent [facility] wellness visit (AWV) in Medicare patient [...] nodules on CT 05/07/2024 Assessment & Plan (12/25/2024 6:02 AM EDT): Next scan due 12/2025 Assessment & Plan (08/15/2024 10:59 AM EST): Is due for repeat CT scan in 11/2024 Diarrhea 04/24/2024 Assessment & Plan (12/25/2024 11:54 AM EDT): Ongoing since 1 week, worsening in fatigue and weakness Orthostatics in office today: Lying 112/62, sitting 102/62, and standing 86/54 I do suspect dehydration is an issue, d/t these sxs and BP and age and medical conditions, I am going to have her go to [facility] ER for evaluation.she is agreeable to this and her can drive her there Assessment & Plan (04/24/2024 12:01 PM EDT): No fever, blood or abd pain It is intermittent Will monitor at this time Pre-diabetes 04/05/2024 Assessment & Plan (12/25/2024 11:34 AM EDT): No current meds Watch for increase in thirst, urination, or appetite. Inspect feet frequently monitoring for open wounds , and also recommend yearly eye exam. Pt should attempt to remain as physically active as chronic conditions allow, as well as trying to follow a diet low in carbohydrates, and simple sugars. A1c 5.7 12/25/24 6.3 (04/02) Assessment & Plan (08/15/2024 6:50 AM EST): [...] right lobe, see report Assessment & Plan (12/25/2024 6:07 AM EDT): Biopsy resolved, bethesda-nondiagnostic, rare benign thyroid follicular cells Assessment & Plan (04/24/2024 12:00 PM EDT): Biopsy resolved, bethesda-nondiagnostic, rare benign thyroid follicular cells Assessment & Plan (03/04/2024 12:46 PM EDT): Thyroid US Coronary artery disease invo lving naknek coronary artery of naknek heart 02/26/2024 Assessment & Plan (12/25/2024 6:02 AM EDT): Takes b clarke Assessment & Plan (08/15/2024 6:46 AM EST): [...] Await her to let me know which title manager referral Calcification of aortic valve 02/26/2024 Assessment [...] to ER for evaluation Will proceed to [facility] Hyperkalemia with normal acid-base balance 11/26 Assessment & Plan (11/28/2023 1:43 PM EDT): Initially was going to have her recheck this, however we will send to [facility] ER for evaluation Cholesteatoma of left ear 11/14/2023 Claudication of both lower extremities Assessment & Plan (02/12/2024 2:22 PM EDT): TIMA's with segmental pressures Assessment & Plan (11/28/2023 1:42 PM EDT): Could also be the cause of bilat leg heaviness or weakness PAD (peripheral artery disease) 06/08/2023 Assessment & Plan (02/12/2024 2:22 PM EDT): TIMA's with segmental pressures at [facility] Age-related osteoporosis wit hout current pathological fracture [...] Obesity (BMI 30-39.9) 06/06/2023 Assessment & Plan (12/25/2024 6:03 AM EDT): Discussed with patient their BMI (actual, verses recommended). We have also discussed lifestyle modifications: attempts to perform physical activity as chronic conditions allow, also to monitor dietary intake: increasing protein/fruits/veggies and lowering carb intake (unless contraindicated). Limit sodas, juices, and sugary drinks. Assessment & Plan (08/15/2024 6:48 AM EST): [...] Hem/onc Tobacco dependence 06/28/2022 Assessment & Plan (12/25/2024 6:04 AM EDT): The patient has been advised of the risks of continued smoking: stroke, [place], all forms of cancer, lung disease, and [...] importance of smoking cessation. Assessment & Plan (08/15/2024 6:49 AM EST): The patient has been advised of the risks of continued smoking: stroke, [place], all forms of cancer, lung disease, and [...] of the risks of continued smoking: stroke, [place], all forms of cancer, lung disease, and [...] artery pressures as well Assessment & Plan (12/25/2024 6:02 AM EDT): Please check blood pressure daily and record DASH diet Limit caffeine Take medication as directed Contact office if chest pain, pressure, dizziness, shortness of breath, swelling legs Recommend slow position changes Current meds: hydrochlorothiazide, losartan, metoprolol, aldactone Assessment & Plan (08/15/2024 6:47 AM EST): [...] sleep apnea syndrome 05/13/2021 Assessment & Plan (12/25/2024 6:01 AM EDT): You have a diagnosis of obstructive sleep [...] tubing/filters etc: Doctor that manages your ADALBERTO: Assessment & Plan (08/15/2024 6:45 AM EST): .L Assessment & Plan (03/27/2024 1:10 PM EDT): Tested in the past, never treated Nocturnal leg cramps 10/05/2017 Family history of breast cancer 04/13/2017 Dry mouth 01/05/2017 Chronic ITP (idiopathic thrombocytopenia) 2015 Assessment & Plan (12/25/2024 6:04 AM EDT): Continue with [facility] for treatment Assessment & Plan (11/28/2023 1:43 PM EDT): Continue with [facility] for treatment Lupus 03/03/2016 Abnormal weight loss 03/03/2016 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 Assessment & Plan (08/15/2024 6:49 AM EST): Fu as per Hem/onc Assessment & Plan (04/24/2024 7:08 AM EDT): Fu as per Hem/onc Resolved Problems Problem Noted Date Diagnosed Date Resolved Date Chronic kidney disease, stage 3a 08/15/2024 12/25/2024 Assessment & Plan (08/15/2024 6:48 AM EST): Continue with Nephrology dr ceja Keep BP at goal Encounters Date Type Department Care Team Description 12/25/2024 11:00 AM EDT Office Visit [facility] [address] [place] [phone] Stephanie Dumont NP Diarrhea, unspecified type (Primary Dx); Chronic kidney disease, stage 3b (CMS-HCC); Coronary artery disease involving naknek coronary artery of naknek heart without angina pectoris ; Essential hypertension ; Obesity (BMI 30-39.9); Pre-diabetes; Chronic ITP (idiopathic thrombocytopenia) (HCC); Tobacco dependence; Thyroid nodule 12/25/2024 Orders Only [facility] [address] [place] [address] Valentin Osborne MD 12/25/2024 Bamboo flowsheet [facility] [address] [place] [address] Stephanie Dumont NP 12/12/2024 Clinisync Result Encounter [facility] External Department Unsolicited Stephanie Dumont NP 10/07/2024 Refill [facility] [address] [place] [address] Stephanie Dumont NP Coronary artery disease involving naknek coronary artery of naknek heart without angina pectoris 09/25/2024 10:20 AM EDT Office Visit [facility] [address] [place] [address] [place] [address] Nadia Mercado MD Thyroid nodule (Primary Dx) 09/25/2024 Bamboo flowsheet [facility] [address] [place] [address] [place] [address] Nadia Mercado MD 09/25/2024 Travel from Last 3 Months Immunizations Immunization [...] 6.4 oz) 12/25/2024 11:04 AM EDT Height 160 cm (5' 3 ) 09/25/2024 10:23 AM EDT Body Mass Index 30.72 09/25/2024 10:23 AM EDT Plan of Treatment Upcoming Encounters Date Type Department Care Team (Late st Contact Info) Description 01/15/2025 2:20 PM EDT Office Visit [facility] [address] [place] [address] Stephanie Dumont NP [address] [place] [address] 04/02/2025 11:10 AM EDT Office Visit [facility] [address] [facility] [address] [place] [address] Nadia Mercado MD [address] [facility] [address] [place] [address] Health Maintenance Due Date Last Done Comments CT Colonography 1950 FIT-DNA 1950 FIT 1950 FOBT 1950 Sigmoidoscopy 1950 Mammogram 04/17/2025 04/17/2024, 100 03/2024, 05/19/2023, Additional history exists Medicare Annual Wellness (AWV) 05/14/2025 05/14/2024 , 05/14/2024 Colonoscopy 07/25/2032 07/25/2022 Colorectal Cancer Screening 07/25/2032 Pneumococcal Vaccine: 65+ Years Completed 04/01/2019, 03/23/2018, 09/06/2016 Influenza Vaccine Completed 04/02/2024, , 04/20/2022, Additional history exists Procedures Procedure Name Priority Date/Time Associated Diagnosis Comments CT ABDOMEN PELVIS W AND WO IV CONTRAST Routine 12/25/2024 5:59 PM EDT POCT GLYCOSYLATED HEMOGLOBIN (HGB A1C) Routine 12/25/2024 11:31 AM EDT Pre-diabetes CT CHEST WO CON 12/12/2024 4:12 PM EDT BI MAMMOGRAM SCREENING TOMOSYNTHESIS BILATERAL 04/17/2024 10:46 AM EDT from Last 3 Months or Most Recently Relevant to Health Maintenance Results * CT abdomen pelvis w and wo IV contrast (12/25/2024 5:59 PM EDT) Anatomical Region Laterality Modality Body, Pelvis, Abdomen Computed T omography Valentin Osborne MD IMG CT PROCEDURES Final Result * POCT glycosylated hemoglobin (Hb A1C) docked device (12/25/2024 11:31 AM EDT) Hemoglobin A1C 5.7 Blood Venous blood specimen / Unknown 12/25/2024 11:31 AM EDT Stephanie Dumont NP POINT OF CARE TEST ENTER/EDIT O RDERABLES Final Result * CT CHEST WO CON (12/12/2024 4:12 PM EDT) Anatomical Region Laterality Modality Other 12/12/2024 4:12 PM EDT Narrative 12/12/2024 4:14 [place] [address] [place] Scan Report Signed Patient: JASPREET LEO MR#: [id number] : 1950 Acct:[id number] Age/Sex: 74 / F ADM Date: 12/12/24 Loc: CT Attending Dr: Stephanie Dumont NP Ordering Physician: Stephanie Dumont NP Date of Service: 12/12/24 Procedure(s): CT chest wo con Accession Number(s): [id number] cc: Stephanie Dumont NP The [place] [address] Patient Name: JASPREET LEO MRN: [id number] date: 1950 Sex: F Assigned Patient Location: CT Current Patient Location: CT Accession/Order Number: [id number] Exam Date: 12/12/2024 16:06 Report Date: 12/12/2024 16:12 At the request of: STEPHANIE DUMONT NP Procedure: CT chest wo con CT Chest without contrast TECHNIQUE: Axial imaging with 2-D reconstruction. The CT exam was performed using one or more the following dose reduction techniques: Automated exposure control, adjustment of the MA and/or Kv according to patient size, or use of the iterative reconstruction technique. History: Follow-up assessment of multiple pulmonary nodules COMPARISON: 05/28/2024 THYROID: Stable prominent right thyroid lobe. TRACHEA AND BRONCHI: Patent ESOPHAGUS: Unremarkable. HEART: Within normal limits PERICARDIAL EFFUSION: None CORONARY ARTERY CALCIFICATION: Present MEDIASTINUM: No adenopathy. No pneumoperitoneum. No mediastinal hematoma. PULMONARY BIJAL: No hilar mass or adenopathy is seen. THORACIC AORTA Unremarkable LUNG NODULE there were small scattered lung nodules redemonstrated. Irregular nodule posterior right upper lobe measures up to 9 mm. Calcified granuloma posterior right lung base redemonstrated. No new or enlarging lung nodules. LUNGS: Lungs are clear PLEURAL EFFUSION: None PNEUMOTHORAX: No pneumothorax seen. CHEST WALL: No abnormality AXILLA:Unremarkable BONY STRUCTURES hyperostosis of thoracic spine. UPPER ABDOMEN: Images of the upper abdomen are noncontributory. CT/CT chest wo con IMPRESSION: Stable numerous small scattered lung nodules. May consider 1 year follow-up assessment to confirm stability. Impression dictated by: Valentin Peralta M.D. 12/12/2024 4:12 PM Dictation Location: [facility] Electronically authenticated by: [id number] Y Date: 12/12/2024 16:12 Dictated By: Valentin Peralta D.O. Signed By: 12/12/24 1614 DD/ 11 TD/TT: Cattle Shipper: Procedure Note Radiology, Radiologist, - 12/12/[address] [address] [address] Scan Report Signed Patient: JASPREET LEO ZMR#: [id number] : 1950cct:[id number] Age/Sex: 74 / FADM Date: 12/12/24 Loc: CT Attending Dr: Stephanie Dumont NP Ordering Physician: Stephanie Dumont NP Date of Service: 12/12/24 Procedure(s): CT chest wo con Accession Number(s): [id number] cc: Stephanie Dumont NP [place] [id number] Patient Name: JASPREET LEO MRN: [id number] date: 1950 Sex: F Assigned Patient Location: CT Current Patient Location: CT Accession/Order Number: [id number] Exam Date: 12/12/2024 16:06 Report Date: 12/12/2024 16:12 At the request of: STEPHANIE DUMONT NP Procedure: CT chest wo con CT Chest without contrast TECHNIQUE: Axial imaging with 2-D reconstruction. The CT exam wasperformed using one or more the following dose reduction techniques: Automatedexposure control, adjustment of the MA and/or Kv according to patient size, or useof the iterative reconstruction technique. History: Follow-up assessment of multiple pulmonary nodules COMPARISON: 05/28/2024 THYROID: Stable prominent right thyroid lobe. TRACHEA AND BRONCHI: Patent ESOPHAGUS: Unremarkable. HEART: Within normal limits PERICARDIAL EFFUSION: None CORONARY ARTERY CALCIFICATION: Present MEDIASTINUM: No adenopathy. No pneumoperitoneum. No mediastinalhematoma. PULMONARY BIJAL: No hilar mass or adenopathy is seen. THORACIC AORTA Unremarkable LUNG NODULE there were small scattered lung nodules redemonstrated.Irregular nodule posterior right upper lobe measures up to 9 mm. Calcifiedgranuloma posterior right lung base redemonstrated. No new or enlarging lungnodules. LUNGS: Lungs are clear PLEURAL EFFUSION: None PNEUMOTHORAX: No pneumothorax seen. CHEST WALL: No abnormality AXILLA:Unremarkable BONY STRUCTURES hyperostosis of thoracic spine. UPPER ABDOMEN: Images of the upper abdomen are noncontributory. CT/CT chest wo con IMPRESSION: Stable numerous small scattered lung nodules. May consider 1year follow-up assessment to confirm stability. Impression dictated by: Valentin Peralta M.D. 12/12/2024 4:12 PM Dictation Location: [facility] Electronically authenticated by: [id number] Y Date: 6:12 Dictated By: Valentin Peralta D.O. Signed By:12/12/241613 DD/ 11 TD/TT: Cattle Shipper: Stephanie Kwanjonnatayla ENGINEER EXHAUSTER [facility] Final Result * Bilateral screening mammogram with tomosynthesis (04/17/2024 10:46 AM EDT) Anatomical Region Laterality Modality Breast Bilateral Mammography 04/17/2024 10:4 6 AM EDT Narrative 04/17/2024 10:45 AM EDT THIS EXAM WAS PERFORMED AT [facility] 1950 [id number] EXAM: MAMM SCREENING BILATERAL W CAD, 04/17/2024 [...] MAMM 1 YR FDA Accredited Performing Facility: [facility] - Mammography/DEXA Imaging [address] [facility] [address] Procedure Note Radiology, Radiologist, - 04/17/2024 THIS EXAM WAS PERFORMED AT [facility] 1950 [id number] EXAM: MAMM SCREENING BILATERAL W CAD, 04/17/2024 [...] MAMM 1 YR FDA Accredited Performing Facility: [facility] - Mammography/DEXA Imaging [address] [facility] [address] Stephanie Dumont ENGINEER EXHAUSTER IMG BI PROCEDURES Final Result from Last 3 Months or Most Recently Relevant to Health Maintenance Insurance [employer] MEDICARE Care Teams Windows Administrator Relationship Specialty Start Date End Date Stephanie Dumont NP [address] [place] [address] PCP - [facility] 10/09/23 12/07/70 Wilfred Polanco MD [address] [place] [address] PCP - General Family Medicine 05/13/24 Stephanie Dumont NP [address] [place] [address] Nurse Practitioner Family Medicine 04/09/23
--- OUTSIDE RECORDS SUMMARY | 2024-12-26 08:09 | XMS_ITS | Encounter Summary ---
Author Organization [facility] Address [address] [place] [address] Care Team Providers Care Payloader Operator Name Role Phone Stephanie Dumont Primary Care Provider Unavailabl e Source Comments In the event this information is protected by the Federal Confidentiality of Alcohol and Drug AbusePatient Records regulations: The Federal rules restrict any use of the information to criminally investigate or prosecute any alcohol or drug abuse patient.[facility] Reason for Visit * Reason Onset Date Comments Refill Request 11/05/2024 Encounter Details Date Type Department Care Team (Late st Contact Info) Description 11/05/2024 Refill [facility] [address] [place] [address] Rinku Dupree MD [address] [place] [address] [place] [address] Refill Request Social History Tobacco Use Types [...] is lower risk 9 12/15/2022 Data from: https://www.[facility] centeratlas.[facility]/. Last address used for calculation [address] [...] No 08/04/2022 2:24 PM EST Jayden Connelly APRN.DEBRIDGING MACHINE OPERATOR * Are you blind or do you have serious difficulty seeing, even when wearing glasses? Answer Date of Assessment Author No 08/04/2022 2:24 PM EST Jayden Connelly APRN.CNP * Do you have serious difficulty walking or climbing stairs? Answer Date of Assessment Author No 08/04/2022 2:24 PM EST Jayden Connelly APRN.CNP * Do you have difficulty dressing or bathing? Answer Date of Assessment Author No 08/04/2022 2:24 PM EST Jayden Connelly APRN.DEBRIDGING MACHINE OPERATOR * Because of a physical, mental, or [...] Description 01/03/2025 1:45 PM EDT Office Visit [facility] [address] [facility] [address] [address] 6 week follow up, labs, B12 & Aranesp 01/03/2025 2:00 PM EDT Visit (SP) Office Hematology/Oncology [address] [place] [address] [place] [address] Jayden Connelly, MIRIAM.DEBRIDGING MACHINE OPERATOR [address] [facility] [place] [address] 6 week follow up, labs, B12 & Aranesp 01/03/2025 2:30 PM EDT [facility] Hematology/Oncology [address] [place] [address] [place] [address] 6 week follow up, labs, B12 & Aranesp documented as of this encounter Visit Diagnoses Not on filedocumented in this encounter Care Teams Payloader Operator Relationship Specialty Start Date End Date Stephanie Dumont PCP - General 04/20/23 documented as of this encounter
--- OUTSIDE RECORDS SUMMARY | 2024-12-26 08:09 | XMS_ITS | Encounter Summary ---
Author Organization [facility] Address [address] [place] [address] Care Team Providers Care Electrical Estimator Name Role Phone Stephanie Dumont DIRECTOR WRITING Unavailable [phone] Unallocated, [facility] Provider Primary Care Provi gabriela Wilfred Polanco MD Primary Care Provider [phone] Wilfred Polanco MD Primary Care Provider [phone] Stephanie Dumont DIRECTOR WRITING Unavailable [phone] Wilfred Polanco MD Primary Care Provider [phone] Encounter Details Date Type Department Care Team (Late Contact Info) Description 07/09/2023 Abstract [facility] [address] [place] [address] Stephanie Dumont, DIRECTOR WRITING [address] [place] [address] Social History Tobacco Use Types Packs/Day Years [...] Upcoming Encounters Date Type Department Care Team ([facility] Contact Info) Description 01/15/2025 2:20 PM EDT Office Visit [facility] [address] [place] [address] Stephanie Dumont NP [address] [place] [address] 04/02/2025 11:10 AM EDT Office Visit [facility] [address] [place] [address] [place] [address] Nadia Mercado MD [address] [place] [address] [place] [address] documented as of this encounter Visit Diagnoses Not on filedocumented in this encounter Care Teams Electrical Estimator Relationship Specialty Start Date End Date Unallocated, Noms MD Angela [address] [place] [address] PCP - General Family Medicine 06/07/23 07/16/23 Wilfred Ploanco MD [address] [place] [address] PCP - General Family Medicine 07/17/23 08/16/23 Wilfred Polanco MD [address] [place] [address] PCP - General Family Medicine 08/17/23 04/23/24 Stephanie Dumont NP [address] [place] [address] PCP - [facility] 10/09/23 12/07/70 Wilfred Polanco MD [address] [place] [address] PCP - General Family Medicine 05/13/24 Stephanie Dumont NP [address] [place] [address] Nurse Practitioner Family Medicine 04/09/23 documented as of this encounter
--- OUTSIDE RECORDS SUMMARY | 2024-12-26 08:09 | XMS_ITS | Encounter Summary ---
Author Organization [facility] Address [address] [facility] [place] [address] Care Team Providers Care Model Maker Scale Name Role Phone Stephanie Dumont NP Unavailable [phone] Wilfred Polanco MD Primary Care Provider [phone] Stephanie Dumont CREATIVE WRITING TEACHER Unavailable [phone] Wilfred Polanco MD Primary Care Provider [phone] Encounter Details Date Type Department Care Team (Late Contact Info) Description 11/29/[address] [facility] [address] [place] [address] Shaikh Biswas MD [address] [place] [address] Social History Tobacco Use Types Packs/Day Years [...] Upcoming Encounters Date Type Department Care Team ([facility] Contact Info) Description 01/15/2025 2:20 PM EDT Office Visit [facility] [address] [place] [address] Stephanie Dumont NP [address] [place] [address] 04/02/2025 11:10 AM EDT Office Visit [facility] [address] [facility] [address] [place] [address] Naida Mercado MD [address] [facility] [address] [place] [address] documented as of this encounter Procedures Procedure [...] on filedocumented in this encounter Care Teams Model Maker Scale Relationship Specialty Start Date End Date Wilfred Polanco MD [address] [place] [address] PCP - General Family Medicine 08/17/23 04/23/24 Stephanie Dumont NP [address] [place] [address] PCP - [facility] 10/09/23 12/07/70 Wilfred Polanco MD [address] [place] [address] PCP - General Family Medicine 05/13/24 Stephanie Dumont NP [address] [place] [address] Nurse Practitioner Family Medicine 04/09/23 documented as of this encounter
--- OUTSIDE RECORDS SUMMARY | 2024-12-26 08:09 | XMS_ITS | Encounter Summary ---
Author Organization [facility] Address [address] [facility] [place] [address] Care Team Providers Care Aviation Maintenance Technician Name Role Phone Stephanie Dumont SINGING WAITER OR WAITRESS Unavailable [phone] Stephanie Dumont SINGING WAITER OR WAITRESS Unavailable [phone] Wilfred Polanco MD Primary Care Provider [phone] Encounter Details Date Type Department Care Team ([facility] Contact Info) Description 05/02/2024 Orders Only [facility] [address] [place] [address] Stephanie Dumont, JORDI [address] [place] [address] Social History Tobacco Use Types Packs/Day Years [...] Upcoming Encounters Date Type Department Care Team ([facility] Contact Info) Description 01/15/2025 2:20 PM EDT Office Visit [facility] [address] [place] [address] Stephanie Dumont, JORDI [address] [place] [address] 04/02/2025 11:10 AM EDT Office Visit [facility] [address] [facility] [address] [place] [address] Nadia Mercado MD [address] [facility] [address] [place] [address] documented as of this encounter Procedures Procedure Name Priority Date/Time Associated Diagnosis Comments BIOPSY THYROID Routine 05/02/2024 4:27 PM EDT documented in this encounter Results * Biopsy thyroid (05/02/2024 4:27 PM EDT) us Stephanie Dumont SINGING WAITER OR WAITRESS IN CLINIC/BEDSIDE ORDERABLES Fi nal Result documented in this encounter Visit Diagnoses Not on filedocumented in this encounter Care Teams Aviation Maintenance Technician Relationship Specialty Start Date End Date Stephanie Dumont NP [address] [place] [address] PCP - [facility] 10/09/23 12/07/70 Wilfred Polanco MD [address] [place] [address] PCP - General Family Medicine 05/13/24 Stephanie Dumont NP [address] [place] [address] Nurse Practitioner Family Medicine 04/09/23 documented as of this encounter
--- OUTSIDE RECORDS SUMMARY | 2024-12-26 08:09 | XMS_ITS | Encounter Summary ---
Author Organization [facility] Address [address] [facility] [place] [address] Care Team Providers Care Hand Plug Shaper Name Role Phone Stephanie Dumont POTTERY DECORATOR Unavailable [phone] Stephanie Dumont NP Unavailable [phone] Wilfred Polanco MD Primary Care Provider [phone] Encounter Details Date Type Department Care Team ([facility] Contact Info) Description 05/29/2024 Clinisync Result Encounter [facility] External Department Unsolicited Stephanie Dumont NP [address] [place] [address] Social History Tobacco Use Types [...] Upcoming Encounters Date Type Department Care Team ([facility] Contact Info) Description 01/15/2025 2:20 PM EDT Office Visit [facility] [address] [address] Stephanie Dumont NP [address] [address] 04/02/2025 11:10 AM EDT Office Visit [facility] [address] [facility] 130 [place] [address] Nadia Mercado MD 112 [facility] 130 [place] [address] documented as of this encounter Procedures Procedure Name Priority Date/Time Associated Diagnosis Comments CT CHEST WO CON 05/29/2024 6:00 AM EST documented in this encounter Results * CT CHEST WO CON (05/29/2024 6:00 AM EST) Anatomical Region Laterality Modality Other 05/29/2024 6:00 AM EST Narrative 05/29/2024 6:03 AM EST [address] [address] [address] Scan Report Signed Patient: JASPREET LEO MR#: [id number] : 1950 Acct:[id number] Age/Sex: 73 / F ADM Date: 05/28/24 Loc: CT Attending Dr: Stephanie Dumont POTTERY DECORATOR Ordering Physician: Stephanie Dumont NP Date of Service: 05/28/24 Procedure(s): CT chest wo con Accession Number(s): [id number] cc: Stephanie Dumont NP [address] [address] Patient Name: JASPREET LEO MRN: [id number] date: 1950 Sex: F Assigned Patient Location: CT Current Patient Location: Accession/Order Number: [id number] Exam Date: 05/28/2024 11:02 Report Date: 05/29/2024 [...] M.D. Signed By: 05/29/24602 DD/ 06 TD/TT: General Accountant: Procedure Note Radiology, Radiologist, MD - 05/29/2024 [place] [address] CT Scan Report Signed Patient: JASPREET LEO ZMR#: [id number] : 1950cct:[id number] Age/Sex: 73 / FADM Date: 05/28/24 Loc: CT Attending Dr: Stephanie Dumont NP Ordering Physician: Stephanie Dumont NP Date of Service: 05/28/24 Procedure(s): CT chest wo con Accession Number(s): [id number] cc: Stephanie Dumont NP [address] [place] [address] Patient Name: JASPREET LEO MRN: [facility]:[id number] date: 1950 Sex: F Assigned Patient Location: CT Current Patient Location: Accession/Order Number: [id number] Exam Date: 05/28/2024 11:02 Report Date: 05/29/2024 [...] 06:00 Dictated By: Tha Zuniga M.D. Signed By:05/29/24602 DD/ 06 TD/TT: General Accountant: us Stephanie Dumont NP [facility] Final Result documented in this encounter Visit Diagnoses Not on filedocumented in this encounter Additional Health Concerns Assessment Noted Time PHQ-9 Depression Total Score: 2 05/14/20 10:42 AM EST documented as of this encounter Care Teams Hand Plug Shaper Relationship Specialty Start Date End Date Stephanie Dumont NP [address] [place] [address] PCP - [facility] 10/09/23 12/07/70 Wilfred Polanco MD [address] [address] PCP - General Family Medicine 05/13/24 Stephanie Dumont NP [address] [place] [address] Nurse Practitioner Family Medicine 04/09/23 documented as of this encounter
--- OUTSIDE RECORDS SUMMARY | 2024-12-26 08:09 | XMS_ITS | Clinical Summary ---
Author Organization [facility] Address [address] [place] [address] Care Team Providers Care Relief Operator Name Role Phone Stephanie Dumont MD Primary Care Provider [phone] Allergies Active Allergy Reactions Criticality Noted Date [...] 3 Active ergocalciferol (Vitamin D-2) 1.25 MG (17587 Units) capsule Take 50,000 Units by mouth [...] 05/31/2025 05/31/2024 Mammogram 04/17/2026 04/17/2024 Pneumococcal Vaccine: 50+ Years Completed 04/01/2019, 03/23/2018, 09/06/2016 Influenza Vaccine [...] on patient's age to complete this topic Insurance [facility] MEDICARE ADVANTAGE [place] [id number] Care Teams Relief Operator Relationship Specialty Start Date End Date Stephanie Dumont MD [address] [place] [address] PCP - General Nurse Practitioner 05/16/24
--- OUTSIDE RECORDS SUMMARY | 2024-12-26 08:09 | XMS_ITS | Encounter Summary ---
Author Organization [facility] Address [address] [place] [facility] [address] Care Team Providers Care Rn Palliative Name Role Phone Stephanie Dumont NP Unavailable [phone] Wilfred Polanco MD Primary Care Provider [phone] Stephanie Dumont NP Unavailable [phone] Wilfred Polanco MD Primary Care Provider [phone] Encounter Details Date Type Department Care Team ([facility] Contact Info) Description 03/22/2024 Clinisync Result Encounter NOM[facility] External Department Unsolicited Stephanie Dumont NP [address] [place] [address] [address] Social History Tobacco Use Types Packs/Day Years [...] Upcoming Encounters Date Type Department Care Team ([facility] Contact Info) Description 01/15/2025 2:20 PM EDT [facility] [address] [address] Stephanie Dumont NP [address] [address] 04/02/2025 11:10 AM EDT Office Visit [facility] 112 [facility] 130 [place] [address] Nadia Mercado MD 112 [facility] 130 [place] [address] documented as of this encounter Procedures Procedure Name Priority Date/Time Associated Diagnosis Comments CA ECHO DOPPLER COMPLETE 03/22/2024 3:33 PM EDT documented in this encounter Results * CA ECHO DOPPLER COMPLETE (03/22/2024 3:33 PM EDT) Anatomical Region Laterality Modality Other 03/22/2024 3:33 PM EDT Narrative 03/22/2024 3:35 PM EDT [address] [address] Cardiology Report Signed Patient: JASPREET LEO MR#: [id number] : 1950 Acct:[id number] Age/Sex: 73 / F ADM Date: 03/22/24 Loc: CARD Attending Dr: Stephanie Dumont NP Ordering Physician: Stephanie Dumont NP Date of Service: 03/22/24 Procedure(s): CA echo doppler complete Accession Number(s): [id number] cc: Stephanie Dumont NP Patient Name: JASPREET LEO MR#: [id number] : 1950 Exam Date: 03/22/2024 Ordering Doctor: [...] Signed By: 03/22/24 1535 DD/ 1533 TD/TT: Accessories Repairer: Procedure Note Radiology, Radiologist, MD - 03/22/2024 [place] [address] Cardiology Report Signed Patient: JASPREET LEO ZMR#: [id number] : 1950cct:[id number] Age/Sex: 73 / FADM Date: 03/22/24 Loc: CARD Attending Dr: Stephanie Dumont NP Ordering Physician: Stephanie Dumont NP Date of Service: 03/22/24 Procedure(s): CA echo doppler complete Accession Number(s): [id number] cc: Stephanie Dumont NP Patient Name: JASPREET LEO MR#: [id number] : 1950 Exam Date: 03/22/2024 Ordering Doctor: [...] M.D. Signed By:03/22/24 1535 DD/ 1533 TD/TT: Accessories Repairer: us Stephanie Dumont NP [facility] Final Result documented in this encounter Visit Diagnoses Not on filedocumented in this encounter Care Teams Rn Palliative Relationship Specialty Start Date End Date Wilfred Polanco MD [address] [place] [address] PCP - General Family Medicine 08/17/23 04/23/24 Stephanie Dumont NP [address] [place] [address] PCP - [facility] 10/09/23 12/07/70 Wilfred Polanco MD [address] [place] [address] PCP - General Family Medicine 05/13/24 Stephaine Dumont NP [address] [place] [address] Nurse Practitioner Family Medicine 04/09/23 documented as of this encounter
--- OUTSIDE RECORDS SUMMARY | 2024-12-26 08:09 | XMS_ITS | Encounter Summary ---
Author Organization [facility] Address [address] [facility] [place] [address] Care Team Providers Care Hogshead Inspector Name Role Phone Stephanie Dumont ANGIOGRAPHER Unavailable [phone] Stephanie Dumont NP Unavailable [phone] Wilfred Polanco MD Primary Care Provider [phone] Encounter Details Date Type Department Care Team ([facility] Contact Info) Description 12/12/2024 Clinisync Result Encounter NOM[facility] External Department Unsolicited Stephanie Dumont NP [address] [place] [address] Social History Tobacco Use Types [...] Visit [facility] [address] [place] [address] Stephanie Dumont NP [address] [address] 04/02/2025 11:10 AM EDT Office Visit [facility] [address] [facility] 130 [place] [address] Nadia Mercado MD 112 [facility] 130 [place] [address] documented as of this encounter Procedures Procedure Name Priority Date/Time Associated Diagnosis Comments CT CHEST WO CON 12/12/2024 4:12 PM EDT documented in this encounter Results * CT CHEST WO CON (12/12/2024 4:12 PM EDT) Anatomical Region Laterality Modality Other 12/12/2024 4:12 PM EDT Narrative 12/12/2024 4:14 [place] [address] CT Scan Report Signed Patient: JASPREET LEO MR#: [id number] : 1950 Acct:[id number] Age/Sex: 74 / F ADM Date: 12/12/24 Loc: CT Attending Dr: Stephanie Dumont NP Ordering Physician: Stephanie Dumont NP Date of Service: 12/12/24 Procedure(s): CT chest wo con Accession Number(s): [id number] cc: Stephanie Dumont NP The [address] [address] Patient Name: JASPREET LEO MRN: [id number] date: 1950 Sex: F Assigned Patient Location: CT Current Patient Location: CT Accession/Order Number: [id number] Exam Date: 12/12/2024 16:06 Report Date: 12/12/2024 [...] Peralta M.D. 12/12/2024 4:12 PM Dictation Location: [place] [address] Electronically authenticated by: [id number] Y Date: 12/12/2024 16:12 Dictated By: Valentin Peralta D.O. Signed By: 12/12/241613 DD/ 11 TD/TT: Hand Bootmaker: Procedure Note Radiology, Radiologist, MD - 12/12/2024 [place] [address] CT Scan Report Signed Patient: JASPREET LEO ZMR#: [id number] : 1950cct:[id number] Age/Sex: 74 / FADM Date: 12/12/24 Loc: CT Attending Dr: Stephanie Dumont NP Ordering Physician: Stephanie Dumont NP Date of Service: 12/12/24 Procedure(s): CT chest wo con Accession Number(s): [id number] cc: Stephanie Dumont NP The [address] [address] Patient Name: JASPREET LEO MRN: [facility]:[id number] date: 1950 Sex: F Assigned Patient Location: CT Current Patient Location: CT Accession/Order Number: [id number] Exam Date: 12/12/2024 16:06 Report Date: 12/12/2024 [...] Peralta M.D. 12/12/2024 4:12 PM Dictation Location: [place] [address] Electronically authenticated by: [id number] Y Date: 6:12 Dictated By: Valentin Peralta D.O. Signed By:12/12/24 1614 DD/ 11 TD/TT: Hand Bootmaker: Stephanie Dumont NP [facility] Final Result documented in this encounter Visit Diagnoses Not on filedocumented in this encounter Additional Health Concerns Assessment Noted Time PHQ-9 Depression Total Score: 2 05/14/20 10:42 AM EST documented as of this encounter Care Teams Hogshead Inspector Relationship Specialty Start Date End Date Stephanie Dumont NP [address] [place] [address] PCP - [facility] 10/09/23 12/07/70 Wilfred Polanco MD [address] [place] [address] PCP - General Family Medicine 05/13/24 Stephanie Dumont NP [address] [place] [address] Nurse Practitioner Family Medicine 04/09/23 documented as of this encounter
--- OUTSIDE RECORDS SUMMARY | 2024-12-26 08:09 | XMS_ITS | Encounter Summary ---
Author Organization [facility] Address [address] [place] [address] Care Team Providers Care Taker Away Name Role Phone Stephanie Dumont 911 EMERGENCY SERVICES DISPATCHER Unavailable [phone] Unallocated, Noms Provider Primary Care Provi gabriela Wilfred Polanco MD Primary Care Provider [phone] Wilfred Polanco MD Primary Care Provider [phone] Stephanie Dumont 911 EMERGENCY SERVICES DISPATCHER Unavailable [phone] Wilfred Polanco MD Primary Care Provider [phone] Encounter Details Date Type Department Care Team (Late Contact Info) Description 06/08/2023 Orders Only [facility] [address] [place] [address] Stephanie Dumont, 911 EMERGENCY SERVICES DISPATCHER [address] [place] [address] Social History Tobacco Use Types Packs/Day Years [...] Upcoming Encounters Date Type Department Care Team ([facility] Contact Info) Description 01/15/2025 2:20 PM EDT Office Visit [facility] [address] [place] [address] Stephanie Dumont NP [address] [place] [address] 04/02/2025 11:10 AM EDT Office Visit [facility] [address] [place] [address] [place] [address] Nadia Mercado MD [address] [place] [address] [place] [address] documented as of this encounter Visit Diagnoses Not on filedocumented in this encounter Care Teams Taker Away Relationship Specialty Start Date End Date Unallocated, Noms MD Angela [address] [place] [address] PCP - General Family Medicine 06/07/23 07/16/23 Wilfred Polanco MD [address] [place] [address] PCP - General Family Medicine 07/17/23 08/16/23 Wilfred Polanco MD [address] [place] [address] PCP - General Family Medicine 08/17/23 04/23/24 Stephanie Dumont NP [address] [place] [address] PCP - [facility] 10/09/23 12/07/70 Wilfred Polanco MD [address] [place] [address] PCP - General Family Medicine 05/13/24 Stephanie Dumont NP [address] [place] [address] Nurse Practitioner Family Medicine 04/09/23 documented as of this encounter
--- OUTSIDE RECORDS SUMMARY | 2024-12-26 08:09 | XMS_ITS | Clinical Summary ---
Author Organization [facility] Address [address] [place], [place] [id number] Care Team Providers Care Motorboat Mechanic Inboard Name Role Phone Stephanie Dumont Primary Care [...] by mouth daily at bedtime. 10 tablet 5 Active pilocarpine (SALAGEN) 5 mg tablet Take [...] Encounters Date Type Department Care Team Description 12/20/2024 1:45 PM EDT Infusion Center Hematology/Oncology [address] [place] [address] [place] [address] 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) (Primary Dx); 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 deficiency; Abnormal weight loss; Other systemic lupus erythematosus with other organ involvement (HCC); Thrombocytopenia; Chronic ITP (idiopathic thrombocytopenia) (HCC) 2024 1:45 PM EDT Infusion Center Hematology/Oncology [address] [place] [address] [place] [address] 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) (Primary Dx) 11/22/2024 2:30 PM EDT Nurse Visit Hematology/Oncology [address] [place] [address] [place] [address] Debora Gaona Nurse Clarence 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 deficiency (Primary Dx); Thrombocytopenia; Abnormal weight loss; Chronic ITP (idiopathic thrombocytopenia) (HCC) 11/22/2024 2:00 PM EDT Visit (SP) Office Hematology/Oncology [address] [place] [address] [place] [address] Rinku Dupree MD Chronic ITP (idiopathic thrombocytopenia) (HCC) (Primary Dx); Stage 3b chronic kidney disease (HCC); 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); 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 deficiency; Systemic lupus erythematosus, unspecified SLE type, unspecified organ involvement status ([facility]) 11/22/2024 Travel 11/06/2024 Social Work Hematology/Oncology [address] [place] [address] [place] [address] Katheryn Hobson LSW 11/05/2024 Refill [facility] [address] [place] [address] [place] [address] Rinku Dupree MD Refill Request 10/11/2024 11:00 AM EDT Nurse Visit Hematology/Oncology [address] [place] [address] [place] [address] Debora Gaona Nurse Clarence 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 deficiency (Primary Dx); Thrombocytopenia; Abnormal weight loss; Chronic ITP (idiopathic thrombocytopenia) ([facility]) 10/11/2024 10:30 AM EDT Visit (SP) Office Hematology/Oncology [address] [place] [address] [place] [address] Li Frank APRN.NEW CLIENT BANKING SERVICES CLERK 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 deficiency [...] is lower risk 9 12/15/2022 Data from: https://www.neighborhoodatlas.medicine.[facility]/. Last address used for calculation [address] [...] Description 01/03/2025 1:45 PM EDT Office Visit [facility] [address] [place] [address] [place] [address] 6 week follow up, labs, B12 & Aranesp 01/03/2025 2:00 PM EDT Visit (SP) Office Hematology/Oncology [address] [place] [address] Josi Burris APRN.NEW CLIENT BANKING SERVICES CLERK [address] [facility] [address] 6 week follow up, labs, B12 & Aranesp 01/03/2025 2:30 PM EDT Infusion Center Hematology/Oncology [address] [place] [address] [place] [address] 6 week follow up, labs, B12 & Aranesp Health Maintenance Due Date Last Done Comments Cervical Cancer Screening 1961 Annual PCP Team Chronic Dise ase Visit 1968 Anxiety Screening 1968 Depression Screening 1968 DTaP,Tdap,Td Vaccine (1 - Tdap) 1969 Shingrix Vaccine (1 of 2) 1969 CT Colonography 12/07/1995 Cologuard (FIT-DNA) 12/07/1995 Fecal Occult Blood 12/07/1995 Sigmoidoscopy 12/07/1995 RSV Vaccine (1 - Risk 60-74 years 1-dose series) 2010 Bone Density Screening 12/07/2015 Lipid Screening 03/30/2022 03/30/2017 Colonoscopy 07/25/2023 07/25/2022, 07/25/2022 Colorectal Cancer Screening 07/25/2023 Advance Directive Discussion 07/10/2024 Medicare Advantage Annual We llness Visit 07/10/2024 Covid-19 Vaccine (7 - Modern a risk season) 2024 05/17/2024, 05/26/2023, 02/05/2022, Additional history exists Mammogram Screening 04/17/2025 04/17/2024, 04/17/2024, 04/17/2024, Additional history exists Serum Creatinine 2025 2024, , 10/11/2024, Additional history exists Hemoglobin/Hematocrit 12/20/2025 12/20/2024 , 2024, 11/22/2024, Additional history exists Diabetes Screening 12/07/2027 2024, 0 11/22/2024, 10/11/2024, Additional history exists Pneumococcal Vaccine: 50+ Completed 2018, 03/23/2018, 09/06/2016 Hepatitis C Screening Completed 10/31/2019 , 07/24/2019, 08/31/2017 Influenza Vaccine Completed 04/02/2024, , 04/20/2022, Additional history exists Procedures Procedure Name Priority Date/Time Associated Diagnosis Comments CBC + DIFF Routine 12/20/2024 1:37 PM EDT Stage 3b chronic kidney disease (HCC) 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) ERYTHROPOIETIN/EPO Routine 2024 1: 22 PM EDT [...] Recently Relevant to Health Maintenance Results * (ABNORMAL) COMPLETE BLOOD COUNT AND DIFFERENTIAL (12/20/2024 1:37 PM EDT) Only the most recent of4 resultswithin the time period is included. WBC 4.78 3.70 - 11.00 k/uL 12/20/2024 1:39 PM EDT [facility] RBC 3.32(L) 3.90 - 5.20 m/uL 12/20/2024 1:39 PM EDT [facility] Hemoglobin 10.8(L) 11.5 - 15.5 g/dL 12/20/2024 1:39 PM EDT [facility] Hematocrit 33.8(L) 36.0 - 46.0 % 12/20/2024 1:39 PM EDT [facility] MCV 101.8(H) 80.0 - 100.0 fL 12/20/2024 1:39 PM EDT [facility] MCH 32.5 26.0 - 34.0 pg 12/20/2024 1:39 PM EDT [facility] MCHC 32.0 30.5 - 36.0 g/dL 12/20/2024 1:39 PM EDT [facility] RDW-CV 14.3 11.5 - 15.0 % 12/20/2024 1:39 PM EDT [facility] Platelet Count 156 150 - 400 k/uL 12/20/2024 1:39 PM EDT [facility] MPV 8.9(L) 9.0 - 12.7 fL 12/20/2024 1:39 PM EDT [facility] Neutrophils % 55.3 % 12/20/2024 1:39 PM EDT [facility] Abs Neut 2.64 1.45 - 7.50 k/uL 12/20/2024 1:39 PM EDT [facility] Lymphocytes % 38.9 % 12/20/2024 1:39 PM EDT [facility] Abs Lymph 1.86 1.00 - 4.00 k/uL 12/20/2024 1:39 PM EDT [facility] Monocytes % 4.6 % 12/20/2024 1:39 PM EDT [facility] Abs [place] 0.22 <0.87 k/uL 12/20/2024 1:39 PM EDT [facility] Eosinophils % 0.8 % 12/20/2024 1:39 PM EDT [facility] Abs Eosin 0.04 <0.46 k/uL 12/20/2024 1:39 PM EDT [facility] Basophils % 0.0 % 12/20/2024 1:39 PM EDT [facility] Abs Baso <0.03 <0.11 k/uL 12/20/2024 1:39 PM EDT [facility] Immature Granulocytes % 0.4 % 12/20/2024 1:39 PM EDT [facility] Abs Immature Gran <0.03 <0.10 k/uL 12/20/2024 1:39 PM EDT [facility] NRBC 0.0 /100 WBC 12/20/2024 1:39 PM EDT [facility] Absolute nRBC <0.01 <0.01 k/uL 12/20/2024 1:39 PM EDT [facility] Diff Type Auto 12/20/2024 1:39 PM EDT [facility] Blood BLOOD SPECIMEN / Unknown Venipuncture / Unknown 12/20/2024 1:37 PM EDT 12/20/2024 1:37 PM EDT us Rinku Dupree MD LABORATORY Final Result Performing Organization Address City/[facility]/ZIP Co de Phone Number [facility] [address] [place] [address] * VITAMIN B12 (2024 1:22 PM EDT) Only the most recent of3 resultswithin the time period is included. Vitamin B12 820 232 - 1,245 pg/mL 12/07/2024 3:06 PM EDT [facility] Blood BLOOD SPECIMEN / Unknown Venipuncture / Unknown 2024 1:22 PM EDT 2024 1:22 PM EDT us Rinku Dupree MD LABORATORY Final Result Performing Organization Address [facility] Co de Phone Number [facility] [address] [address], [place] * RETICULOCYTE COUNT (2024 1:22 PM EDT) Retic % 1.8 0.4 - 2.0 % 2024 1:25 PM EDT [facility] Abs Retic 0.057 0.018 - 0.100 M/uL 2024 1:25 PM EDT [facility] Blood BLOOD SPECIMEN / Unknown Venipuncture / Unknown 2024 1:22 PM EDT 2024 1:22 PM EDT us Rinku Dupree MD LABORATORY Final Result Performing Organization Address City/[facility]/ZIP Co de Phone Number [facility] [address] [place] [address] * IRON AND TIBC (2024 1:22 PM EDT) Only the most recent of3 resultswithin the time period is included. Iron 71 41 - 186 ug/dL 12/07/2024 2:47 PM EDT [facility] TIBC 329 232 - 386 ug/dL 12/07/2024 2:47 PM EDT [facility] Transferrin Saturation 21.6 15.0 - 57.0 % 12/07/2024 2:47 PM EDT [facility] Blood BLOOD SPECIMEN / Unknown Venipuncture / Unknown 2024 1:22 PM EDT 2024 1:22 PM EDT us Rinku Dupree MD LABORATORY Final Result [facility] [address] [place] [address], [place] * FOLATE, SERUM (2024 1:22 PM EDT) Only the most recent of3 resultswithin the time period is included. Folate 8.1 >4.7 ng/mL 12/07/2024 3:06 PM EDT [facility] Blood BLOOD SPECIMEN / Unknown Venipuncture / Unknown 2024 1:22 PM EDT 2024 1:22 PM EDT us Rinku Dupree MD LABORATORY Final Result Performing Organization Address City/[facility]/ZIP Co de Phone Number [facility] [address] [place] [address], [place] * FERRITIN (2024 1:22 PM EDT) Only the most recent of3 resultswithin the time period is included. Ferritin 105.0 14.7 - 205.1 ng/mL 12/07/2024 3:06 PM EDT [facility] Blood BLOOD SPECIMEN / Unknown Venipuncture / Unknown 2024 1:22 PM EDT 2024 1:22 PM EDT us Rinku Dupree MD LABORATORY Final Result [facility] [address] [facility] [place] [address], [place] * (ABNORMAL) ERYTHROPOIETIN/EPO (2024 1:22 PM EDT) [facility] Erythropoietin 66.5(H) 2.6 - 18.5 mIU/mL 12/09/2024 1:15 PM EDT [facility] Blood BLOOD SPECIMEN / Unknown Venipuncture / Unknown 2024 1:22 PM EDT 2024 1:22 PM EDT Narrative [facility] - 12/09/2024 1:15 PM EDT Test analyzed by the Leopoldo DxI method. us Rinku Dupree MD LABORATORY Final Result Performing Organization Address City/[facility] Co de Phone Number [facility] [address] [place] [id number], [place] * (ABNORMAL) COMPREHENSIVE METABOLIC PANEL (2024 1:22 PM EDT) Only the most recent of3 resultswithin the time period is included. [facility] Protein, Total 7.1 6.3 - 8.0 g/dL 2024 2:26 PM EDT [facility] Albumin 3.7(L) 3.9 - 4.9 g/dL 2024 2:26 PM EDT [facility] Calcium, Total 10.0 8.5 - 10.2 mg/dL 2024 2:26 PM EDT [facility] Bilirubin, Total 0.4 0.2 - 1.3 mg/dL 2024 2:26 PM EDT [facility] Alkaline Phosphatase 81 34 - 123 U/L 2024 2:26 PM EDT [facility] AST 21 13 - 35 U/L 2024 2:26 PM EDT [facility] ALT 12 7 - 38 U/L 2024 2:26 PM T [facility] Glucose 98 74 - 99 mg/dL 2024 2:26 PM [facility] Comment: The [place] Diabetes Association (ADA) provides guidance for cutoff [...] Standards of Medical Care in Diabetes 2016, [place] Diabetes Association. Diabetes Care. 2016.39(Suppl 1). BUN 36(H) 7 - 21 mg/dL 2024 2:26 PM [facility] Creatinine 1.16(H) 0.58 - 0.96 mg/dL 2024 2:26 PM T [facility] Sodium 137 136 - 144 mmol/L 2024 2:26 PM [facility] Potassium 4.9 3.7 - 5.1 mmol/L 2024 2:26 PM [facility] Chloride 106 98 - 107 mmol/L 2024 2:26 PM [facility] CO2 23 22 - 30 mmol/L 2024 2:26 PM [facility] Anion Gap 8 8 - 15 mmol/L 2024 2:26 PM [facility] Estimated Glomerular Filtration Rate 50(L) >=60 mL/min/1. 73m 2024 2:26 PM [facility] Comment:Estimated Glomerular Filtration Rate (eGFR) [...] MD LABORATORY Final Result Performing Organization Address City/[facility]/ZIP Co de Phone Number [facility] [address] [place] [address] * (ABNORMAL) HEP REMOTE PANEL BL (10/31/2019 10:10 AM EDT) Pathologist [facility] Hep B Core Ab, Total Negative Negative 10/31/2019 6:02 PM EDT [facility] Hep C Antibody IA Negative Negative 10/31/2019 6:03 PM EDT [facility] HBsAg Negative Negative 10/31/2019 6:02 PM EDT [facility] Hep B Surface Ab, Qual Positive(A) Negative 10/31/2019 6:03 PM EDT [facility] Comment: These results are consistent with previous exposure and/or immunity to the hepatitis B virus antigen. Blood specimen (specimen) BLOOD SPECIMEN / Unknown 10/31/2019 10:10 AM EDT 10/31/2019 10:12 AM EDT Rinku Dupree MD LABORATORY Final Result Performing Organization Address City/[facility]/ZIP Co de Phone Number [facility] [address] [place] [address] [facility] [address] [place] [address] * (ABNORMAL) LIPID PANEL BASIC (03/30/2017 2:00 PM EDT) Pathologist [facility] Triglyceride 118 30 - 149 mg/dL 03/31/2017 8:48 AM EDT [facility] Cholesterol, Total 171 100 - 199 mg/dL 03/31/2017 8:48 AM EDT [facility] HDL Cholesterol 34(L) >55 mg/dL 7 8:48 AM EDT [facility] VLDL Cholesterol 24 6 - 40 mg/dL 03/31/2017 8:48 AM EDT [facility] LDL Cholesterol, Calculated 113 60 - 129 mg/dL 03/31/2017 8:48 AM EDT [facility] Fasting Time Unknown hrs 03/31/2017 5:26 AM EDT [facility] TC:HDL Ratio 5.03(H) 1.00 - 5.00 03/31/2017 8:48 AM EDT [facility] LDL:HDL Ratio 3.32 0.50 - 3.55 03/31/2017 8:48 AM EDT [facility] Non HDL Cholesterol 137 90 - 159 mg/dL 03/31/2017 8:48 AM EDT [facility] 03/30/2017 2:00 PM EDT 03/30/2017 11:00 PM EDT [facility] Provider LABORATORY Final Result [facility] [address] [place] [address] from Last 3 Months or Most Recently Relevant to Health Maintenance Insurance [facility] [place] [address] Care Teams Motorboat Mechanic Inboard Relationship Specialty Start Date End Date Stephanie Dumont PCP - General 04/20/23
--- OUTSIDE RECORDS SUMMARY | 2024-12-26 08:09 | XMS_ITS | Encounter Summary ---
Author Organization [facility] Address [address] [facility] [place] [address] Care Team Providers Care Anode Rebuilder Name Role Phone Stephanie Dumont DIRECTOR EMERGENCY SERVICES Unavailable [phone] Stephanie Dumont NP Unavailable [phone] Wilfred Polanco MD Primary Care Provider [phone] Encounter Details Date Type Department Care Team ([facility] Contact Info) Description 12/25/2024 Bamboo flowsheet [facility] [address] [place] [address] Stephanie Dumont NP [address] [place] [address] Social History Tobacco Use Types [...] Upcoming Encounters Date Type Department Care Team ([facility] Contact Info) Description 01/15/2025 2:20 PM EDT Office Visit [facility] [address] [place] [phone] Stephanie Dumont NP [address] [place] [address] 04/02/2025 11:10 AM EDT Office Visit [facility] [address] [facility] [address] [place] [address] Nadia Mercado MD [address] [facility] [address] [place] [address] documented as of this encounter Visit Diagnoses Not on filedocumented in this encounter Additional Health Concerns Assessment Noted Time PHQ-9 Depression Total Score: 2 05/14/20 10:42 AM EST documented as of this encounter Care Teams Anode Rebuilder Relationship Specialty Start Date End Date Stephanie Dumont NP [address] [place] [phone] PCP - [facility] 10/09/23 12/07/70 Wilfred Polanco MD [address] [place] [address] PCP - General Family Medicine 05/13/24 Stephanie Dumont NP [address] [place] [phone] Nurse Practitioner Family Medicine 04/09/23 documented as of this encounter
--- OUTSIDE RECORDS SUMMARY | 2024-12-26 08:09 | XMS_ITS | Encounter Summary ---
Author Organization [facility] Address [address] [facility] [place] [address] Care Team Providers Care Bench Assembler Operator Name Role Phone Stephanie Dumont SHELVING SUPERVISOR Unavailable [phone] Stephanie Dumont SHELVING SUPERVISOR Unavailable [phone] Wilfred oPlanco MD Primary Care Provider [phone] Encounter Details Date Type Department Care Team ([facility] Contact Info) Description 12/25/2024 Orders Only [facility] [address] [place] [address] Valentin Osborne MD [address] [place] [address] Social History Tobacco Use Types Packs/Day Years [...] Upcoming Encounters Date Type Department Care Team ([facility] Contact Info) Description 01/15/2025 2:20 PM EDT Office Visit [facility] [address] [place] [address] Stephanie Dumont SHELVING SUPERVISOR [address] [place] [address] 04/02/2025 11:10 AM EDT Office Visit [facility] [address] [facility] [address] [place] [address] Nadia Mercado MD [address] [facility] [address] [place] [address] documented as of this encounter Procedures Procedure Name Priority Date/Time Associated Diagnosis Comments CT ABDOMEN PELVIS W AND WO IV CONTRAST Routine 12/25/2024 5:59 PM EDT documented in this encounter Results * CT abdomen pelvis w and wo IV contrast (12/25/2024 5:59 PM EDT) Anatomical Region Laterality Modality Body, Pelvis, Abdomen Computed T omography Valentin Osborne MD IMG CT PROCEDURES Final Result documented in this encounter Visit Diagnoses Not on filedocumented in this encounter Additional Health Concerns Assessment Noted Time PHQ-9 Depression Total Score: 2 05/14/20 10:42 AM EST documented as of this encounter Care Teams Bench Assembler Operator Relationship Specialty Start Date End Date Stephanie Dumont NP [address] [place] [address] PCP - [facility] 10/09/23 12/07/70 Wilfred Polanco MD [address] [place] [address] PCP - General Family Medicine 05/13/24 Stephanie Dumont NP [address] [place] [address] Nurse Practitioner Family Medicine 04/09/23 documented as of this encounter
--- OUTSIDE RECORDS SUMMARY | 2024-12-26 08:17 | XMS_ITS | CCD ---
Author Organization [facility] Care Team Providers Care Fleshing Machine Operator Name Role Phone COTY WRIGHT Unavailable Unavailable COTY WRIGHT Unavailable Unavailable VANCE SCHERER Unavailable Unavailable VANCE SCHERER Unavailable Unavailable Unavailable Primary Care Provider Unavailabl e Paloma Saldaña Primary Care Provider [phone] Gilson Arriola Unavailable Unavailable Primary Care Provider Unavailabl e Unavailable Primary Care Provider UnavailMD Gilson Galvez Attending Provider NON STAFF Primary Care Provider Unavailabl e True JAIMES, [facility] Primary Care Provider Aichholruben, Stephanie Primary Care Provider [phone] Aichholz DIFFUSION FURNACE OPERATOR, Stephanie Unavailable Wilfred Polanco MD Primary Care Provider Wilfred Polanco MD Primary Care Provider [phone] Unavailable Primary Care Provider Unavailabl e Aichholz, Stephanie Primary Care Provider Aichholz, Stephanie Primary Care Provider Unavailabl e Aichholz DIFFUSION FURNACE OPERATOR, Stephanie Unavailable Aichholz DIFFUSION FURNACE OPERATOR, Stephanie Unavailable MD Simon Zuniga Attending Provider Unallocatjabier JAIMES, [place] Provider Primary Care Provi gabriela Simon Zuniga Attending Unavailable Simon Zuniga Admitting Unavailable Gilson Arriola Attending Unavailable Gilson Arriola Admitting Unavailable Wilfred Polanco MD Primary Care Provider DOUG MORRELL Referring Unavailable DOUG MORRELL Attending Unavailable HERSON AVALOS Referring Unavailable MASSIEL BALLARD Attending Unavailable STEPHANIE DUMONT Attending Unavailable MAR MAYO Attending Unavailable AICHHOLZSTEPHANIE Attending Unavailable AICHHOLZ, STEPHANIE Attending Unavailable AICHHOLZ, STEPHANIE Attending Unavailable AICHHOLZ, STEPHANIE Attending Unavailable BLAISE ALEX Referring Unavailable BLAISE ALEX Attending Unavailable AICHHOLRuben, STEPHANIE Referring Unavailable AICJenniferHOLRuben, STEPHANIE Attending Unavailable JR. AVALOS GEORGE C Attending Unavaila ble JR. AVALOS GEORGE C Referring Unavaila ble AICHHOLRuben, STEPHANIE Attending Unavailable MAR MAYO Attending Unavailable RAVENHOLRuben, STEPHANIE Referring Unavailable RODNEY GUILLEN Attending Unavailable Unavailable Primary Care Provider EMANI Bolton Attending UnavailSUSANNA Aguila Attending Unavailable SUSANNA GRAF Attending Unavailable SUSANNA GRAF Admitting Unavailable SUSANNA GRAF Attending Unavailable TREVORHSTEPHANIE STODDARD Primary Care Unavailable SUSANNA GRAF Admitting Unavailable SUSANNA GRAF Attending Unavailable MAR MAYO Referring Unavaila ble TIM, STEPHANIE J Referring Unavailable AICHHOLRuben, STEPHANIE J Primary Care Unavailable AICHHOLRuben, STEPHANIE J Referring Unavailable AICHHOLRuben, STEPHANIE J Primary Care Unavailable BLAISE ALEX Referring Unavailable AICJenniferHOLRuben, STEPHANIE J Primary Care Unavailable TREVORHHOLRuben, STEPHANIE J Referring Unavailable AICHHOLRuben, STEPHANIE J Primary Care Unavailable BLAISE ALEX Attending Unavailable BLAISE ALEX Referring Unavailable AICHHOLZ, STEPHANIE J Primary Care Unavailable BLAISE ALEX Attending Unavailable BLAISE ALEX Referring Unavailable AICHHOLZ, STEPHANIE J Primary Care Unavailable BLAISE ALEX Attending Unavailable BLAISE ALEX Referring Unavailable AICHHOLRuben, STEPHANIE Negrete Primary Care Unavailable AICHHOLZ, STEPHANIE J Referring Unavailable AICHHOLZ, STEPHANIE J Primary Care Unavailable AICHHOLRuben, STEPHANIE J Referring Unavailable AICHHOLZ, STEPHANIE J Primary Care Unavailable AICHHOLRuben, STEPHANIE J Referring Unavailable AICHHOLZ, STEPHANIE J Primary Care Unavailable MASSIEL BALLARD JR Referring Unavai lable AICHRICHI, STEPHANIE Negrete Primary Care Unavailable BALLARD JR, MASSIEL G Referring Unavai ishmael TIM, STEPHANIE J Primary Care Unavailable ZEINAB, GILSON Referring Unavailable AICHHOLZ, STEPHANIE J Primary Care Unavailable LESIA, SUSANNA E Referring Unavailable AICHHOLZ, STEPHANIE J Primary Care Unavailable ABHYANKAR, RINKU Referring Unavailable HONG, LI Attending Unavailable ABHYANKAR, RINKU Referring Unavailable ABHYANKAR, RINKU Referring Unavailable ABHYANKAR, RINKU Referring Unavailable ABHYANKAR, RINKU Referring Unavailable ABHYANKAR, RINKU Referring Unavailable ABHYANKAR, RINKU Referring Unavailable ABHYANKAR, RINKU Referring Unavailable ABHYANKAR, RINKU Referring Unavailable ABHYANKAR, RINKU Attending Unavailable ABHYANKAR, RINKU Referring Unavailable ABHYANKAR, RINKU Referring Unavailable HONG, LI Attending Unavailable ABHYANKAR, RINKU Referring Unavailable ABHYANKAR, RINKU Attending Unavailable ABHYANKAR, RINKU Referring Unavailable ABHYANKAR, RINKU Referring Unavailable ABHYANKAR, RINKU Referring Unavailable ABHYANKAR, RINKU Attending Unavailable ABHYANKAR, RINKU Referring Unavailable ABHYANKAR, RINKU Attending Unavailable ABHYANKAR, RINKU Referring Unavailable HONG, LI Attending Unavailable ABHYANKAR, RINKU Referring Unavailable ABHYANKAR, RINKU Attending Unavailable ABHYANKAR, RINKU Referring Unavailable Allergies Allergy Classification Reported Allergen(s) Allergy Type Date of Onset Reaction(s) Facility (1 source) codeine; Translations: [CODEINE PHOSPHATE] Drug Allergy 05-20-20 09 [facility] Repository (1 source) codeine; Translations: [CODEINE SULFATE] Drug Allergy 05-20-20 09 [facility] Rep[facility] (1 source) VANCOMYCIN AND DERIVATIVES; Translations: [VANCOMYCIN AND DERIVATIVES] Propensity to adverse reactions (disorder) 05-20-20 09 [facility] Rep[facility] (20 sources) Vancomycin; Translations: [VANCOMYCIN] Drug Allergy 03-03-20 16 Unknown, Other [facility] (8 sources) Tetanus Vaccines And Toxoid; Translations: [TETANUS VACCINES AND TOXOID] Drug Allergy 03-03-20 16 Unknown [facility] (1 source) Tetanus vaccine Drug allergy Unknown [facility] Other (20 sources) Tetanus Vaccines And Toxoid Drug Allergy 03-03-20 16 Unknown [facility] (4 sources) Tetanus vaccine Drug allergy Unknown [facility] Other (20 sources) Tetanus-Diphth- Acell Pertussis Drug Intolerance 06-06-20 23 Rash [facility] (20 sources) Diphtheria,Pert ussis (Acellular),Tet anus Vaccine; Translations: [DIPHTHERIA,PER TUSSIS (ACELLULAR),TET ANUS VACCINE] Propensity to adverse reactions 06-06-20 [facility] (3 sources) tetanus toxoid, adsorbed; Translations: [tetanus toxoid, adsorbed] Allergy to substance 09-20-19 Unknown Reaction [facility] (1 source) Vancomycin Drug Allergy 09-20-19 [facility] Repository Medications Current Medications Medication Drug Class(es) Dates Sig (Normalized) Sig (Original) alendronic acid 70 mg oral tablet (20 sources) Bisphosphonate Start: 06-06-2023 End: 04-09-2024 alendronate (FOSAMAX) 70 mg tablet PLEASE SEE ATTACHED FOR DETAILED DIRECTIONS 06/06/2023 Active Start: 06-06-2023 End: 08-21-2024 alendronate (FOSAMAX) 70 mg tablet PLEASE SEE ATTACHED FOR DETAILED DIRECTIONS 06/06/2023 Active Start: 06-06-2023 take 1 tablet by darling every week Alendronate 70 mg tablet Active 70 MG PO every week August 21, 2024 1:20pm Comment on above: PLEASE SEE ATTACHED FOR DETAILED DIRECTIONS benzonatate 100 mg oral capsule (20 sources) Non-narcotic Antitussive Start: 2021 End: 2024 take 1 capsule by mouth every six hours as needed benzonatate (Tessalon) 100 MG capsule Take 100 mg by mouth every 6 (six) hours if needed 07/11/2024 Active Comment on above: Take 1 capsule by mo [facility] every 6 hours as needed for cough. calcium chloride 0.0014 meq/ml / potassium chloride 0.004 meq/ml / sodium chloride 0.103 meq/ml / sodium lactate 0.028 meq/ml injectable solution (1 source) Start: 2023 take 100 mL intravenously every hour 100 mL/hr, intravenous, Continuous, Starting on 12/18/23 at 1300, Recovery (only) cephalexin 500 mg [...] by mouth in the morning. 0 Active ciprofloxacin 3 mg/ml / dexamethasone 1 mg/ml otic suspension (4 sources) Corticosteroid, Quinolone Antimicrobial Start: 2023 End: 2023 ciprofloxacin-dexame thasone (CiproDEX) otic suspension Indications: Cholesteatoma of left ear Administer 4 drops into affected ear(s) 2 times a day. Start your ear drops on 12/18 and continue until follow up 7.5 mL 12/18/2023 Active cyclobenzaprine hydrochloride 5 mg oral tablet (10 sources) Muscle Relaxant Start: 2024 take 1 tablet by mouth at bedtime cyclobenzaprine (Flexeril) 5 MG tablet Take 5 mg by mouth at bedtime 10/11/2024 Active ergocalciferol 1.25 mg oral capsule (20 sources) Provitamin D2 Compound Start: 2022 End: 2023 take 1 capsule by mouth every week ergocalciferol 50,000 unit capsule (VITAMIN D2, DRISDOL) Take 1 capsule by mouth one time a week. 06/28/2023 Active Start: 06-28-2023 take 1 capsule by mo ut every week ergocalciferol 50,000 unit capsule (VITAMIN D2, DRISDOL) Take 1 capsule by mouth one time a week. 06/28/2023 Active take 1 capsule by mo ut every week ergocalciferol (Vitamin D-2) 1.25 MG (53310 UT) capsule Take 50,000 Units by mouth 1 (one) time per week Active Comment on above: Take 1 capsule by mo uth one time a week. fostamatinib 100 mg oral tablet (20 sources) Start: 2020 End: 2024 take 1 tablet by mouth twice daily fostamatinib (TAVALISSE) 100 mg tablet Take 1 tablet by mouth two times a day. 60 tablet 11 04/05/2024 Active Comment on above: Take 100 mg by mouth twice daily. [facility]. Take 1 tablet by darling twice daily. [facility] two times a day. hydroCHLOROthiazide 25 mg oral tablet (20 sources) Thiazide Diuretic Start: 2022 End: 2024 take 1 tablet by mouth in the [...] Comment on above: TAKE 1 TABLET BY [facility] EVERY DAY Take 1 tablet by [facility] once daily. 0.5 ml HYDROmorphone hydrochloride 1 [...] oral tablet (20 sources) Angiotensin 2 Receptor Clarke Start: 03-30-2022 End: 08-21-2024 take 2 tablets by mouth at bedtime losartan (Cozaar) 25 MG tablet Take 50 mg by mouth at bedtime 06/15/2022 Active Start: 02-06-2022 End: 03-07-2022 take [...] at bedtime methocarbamol 750 mg oral tablet (20 sources) Muscle Relaxant End: methocarbamol (Robaxin) 750 MG tablet Take 750 mg by mouth in the morning and 750 mg at noon and 750 mg in the evening. 08/15/2024 Discontinued (Therapy completed) 24 hr metoprolol succinate 25 mg extended release oral tablet (20 sources) beta-Adrenergic Clarke Start: take 2 tablets by mouth every twenty-four hours Metoprolol Succinate 25 mg tablet extended release 24 hr Active 12.5 MG PO Once August 21, 2024 12:00am Start: 03-04-2024 End: 01-05-2025 take 0.5 tablet by mouth once daily metoprolol succinate XL (Toprol-XL) 25 MG 24 hr tablet Indications: Coronary artery disease involving [place] coronary artery 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 TAKE 0.5 TABLETS (12.5 MG) BY MOUTH DAILY DO NOT CRUSH OR CHEW. 45 tablet 1 10/07/2024 01/05/2025 Active Start: 03-04-2024 End: 04-03-2024 take 1 tablet by mouth once daily metoprolol succinate ER (TOPROL XL) 25 mg 24 hr tablet Take 12.5 mg by mouth once daily. 03/04/2024 Active naproxen 500 mg oral tablet (4 sources) Nonsteroidal Anti-inflammatory Drug Start: 11-11-2024 take 1 tablet by mouth twice daily as needed naproxen (Naprosyn) 500 MG tablet Take 500 mg by mouth 2 (two) times a day as needed 11/11/2024 Active pilocarpine hydrochloride 5 mg oral tablet (20 sources) Cholinergic Receptor Agonist Start: 01-27-2023 End: 10-09-2024 take 1 tablet by mouth in the morning, then take 1 tablet by mouth in the evening, then take 1 tablet by mouth at bedtime pilocarpine (Salagen) 5 MG tablet Take 1 tablet by mouth in the morning and 1 tablet in the evening and 1 tablet before bedtime. 01/27/2023 Active Start: 07-20-2022 End: 10-26-2022 take [...] BY DARLING TH THREE TIMES A DAY Take 1 tablet by darling th three times a day. promethazine (Phenergan) 6.25 mg in sodium chloride 0.9% 50 mL IV (1 source) Start: 12-18-19 24 6.25 mg, intravenous, Administer over 15 Minutes, Once as needed, Nausea/vomiting, second line, Starting on Mon12/18/23 at 1242, For 1 dose, Recovery (only) spironolactone 25 mg oral tablet (20 sources) Aldosterone Antagonist Start: 09-08-19 End: 05-16-20 take 1 tablet by mouth in the morning spironolactone (Aldactone) 25 MG tablet Take 25 mg by mouth in the morning. 09/07/2022 Active Comment on above: Take 25 mg by mouth once daily. Completed/Discontinued Medications Medication Drug Class(es) Dates Sig [...] pain scores based on patient preference? Yes acetaminophen 325 mg / oxyCODONE hydrochloride 5 mg oral tablet (13 sources) Opioid Agonist Start: 02-12-2024 End: 07-22-2024 take 1 tablet by mouth every six hours as needed oxyCODONE-acetaminophen (PERCOCET) 5-325 mg tablet Take 1 tablet by mouth every 6 hours as needed for pain. 02/12/2024 07/22/2024 Discontinued amoxicillin 875 mg / clavulanate 125 mg [...] on above: Take 1 tablet by darling twice daily for 14 days. cholecalciferol, vitamin D3, (VITAMIN D3 ORAL) (20 sources) End: 07-22-2024 cholecalciferol, vitamin D3, (VITAMIN D3 ORAL) Take by mouth. 07/22/2024 Discontinued cholecalciferol, vitamin D3, (VITAMIN D3 ORAL) Take by mouth. Active cholecalciferol, vitamin D3, (VITAMIN D3 ORAL) Take by mouth. 0 Active Comment on above: Take by mouth. 0.4 ml darbepoetin toney 0.5 mg/ml prefilled syringe (2 sources) Erythropoiesis- stimulating Agent Start: End: inject 1 dose by subcutaneous injection once 200 mcg, SUBCUTANEOUS, ONCE, 1 dose, On Mon12/20/24 at 1400, Protect from light REFRIGERATE Start: 2024 End: 2024 inject 1 dose by subcutaneous injection once 200 mcg, SUBCUTANEOUS, ONCE, 1 dose, On Mon12/06/24 at 1400, Protect from light REFRIGERATE furosemide 20 mg oral tablet (1 source) [...] Patient) Comment on above: Take by mouth. ondansetron 4 mg disintegrating oral tablet (20 sources) Serotonin-3 Receptor Antagonist Start: 02-12-2024 End: 07-22-2024 take 1 tablet by mouth every eight hours as needed ondansetron orally disintegrating (ZOFRAN ODT) 4 mg disintegrating tablet Take 4 mg by mouth every 8 hours as needed for nausea/vomiting. 02/12/2024 07/22/2024 Discontinued Start: 12-18-2023 4 mg, intraven ous, Once as needed, nausea/vomiting, first line, Starting on Mon12/18/23 at 1242, For 1 dose, Recovery (only), When administering via IV Push, administer over 3-5 minutes. traMADol hydrochloride 50 mg oral tablet (14 sources) Opioid Agonist Start: 12-18-2023 End: 07-22-2024 take 1 tablet by mouth every six hours as needed traMADol (ULTRAM) 50 mg tablet Take 50 mg by mouth every 6 hours as needed for pain. 12/18/2023 07/22/2024 Discontinued vitamin b12 1 mg/ml injectable solution (8 sources) Vitamin B12 Start: 12-20-2024 End: 12-20-2024 inject 1 dose by intramuscular injection once 1,000 mcg, INTRAMUSCULAR, ONCE, 1 dose, On Mon12/20/24 at 1400 Start: 11-22-2024 End: 11-22-2024 inject 1 dose by intramuscular injection once 1,000 mcg, INTRAMUSCULAR, ONCE, 1 dose, On Mon11/22/24 at 1430 Start: 10-11-2024 End: 10-11-2024 inject 1 dose by intramuscular injection once 1,000 mcg, INTRAMUSCULAR, ONCE, 1 dose, On Mon10/11/24 at 1030 Start: 08-30-2024 End: 08-30-2024 inject 1 dose by intramuscular injection once 1,000 mcg, INTRAMUSCULAR, ONCE, 1 dose, On Mon08/30/24 at 1100 Start: 07-11-2024 End: 07-11-2024 inject 1 dose by intramuscular injection once 1,000 mcg, INTRAMUSCULAR, ONCE, 1 dose, On Debbie 07/11/24 at 1130 Start: 05-30-2024 End: 05-30-2024 inject 1 dose by intramuscular injection once 1,000 mcg, INTRAMUSCULAR, ONCE, 1 dose, On Debbie 11/21/24 at 1100 Start: 04-18-2024 End: 04-18-2024 inject 1 dose by intramuscular injection once 1,000 mcg, INTRAMUSCULAR, ONCE, 1 dose, On Debbie 04/18/24 at 1130 Start: 03-05-2024 End: 03-05-2024 inject 1 dose by intramuscular injection once 1,000 mcg, INTRAMUSCULAR, ONCE, 1 dose, On 03/05/24 at 1130 Zinc (1 source) End: 07-16-2021 ZINC ORAL Take by mouth. 0 07/16/2021 Discontinued (Discontinued by Patient) Comment on above: Take by mouth. Problems Active Problems Problem Classification Problem Date Documented Da te Episodic/Chronic Chronic kidney disease (20 sources) Chronic kidney disease stage 3B ; Translations: [Stage 3b chronic kidney disease (HCC)] Onset: 5 Resolved: 5 11-24-2023 Chronic Chronic kidney disease (2 sources) Chronic kidney disease; Translations: [Chronic kidney disease, stage 3 unspecified] Onset: 5 Coagulation and hemorrhagic disorders (20 sources) Chronic idiopathic thrombocytopenic purpura; Translations: [Immune thrombocytopenic purpura] Onset: 6 Resolved: 2 Chronic Coronary atherosclerosis and other heart disease (20 sources) Coronary arteriosclerosis; Translations: [Atherosclerotic heart disease of [place] coronary artery without angina pectoris] Onset: 4 02-26-2024 Chronic Deficiency and other anemia (3 sources) Anemia; Translations: [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)] 11-22-2024 Chronic Deficiency and other anemia (2 sources) Anemia in chronic kidney disease; Translations: [Anemia in chronic kidney disease] Onset: 5 Chronic Deficiency and other anemia (1 source) Deficiency and other anemia; Translations: [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)] Onset: 5 Diabetes mellitus without complication (20 sources) Increased glucose level; Translations: [Other abnormal glucose] Onset: 4 04-04-2024 Episodic Essential hypertension (20 sources) Essential hypertension; Translations: [Essential (primary) hypertension] Onset: 1 Resolved: 2 Chronic Heart valve disorders (20 sources) Aortic valve calcification; Translations: [Nonrheumatic aortic valve disorder, unspecified] Onset: 4 02-26-2024 Chronic Hypertension with complications and secondary hypertension (6 sources) Secondary hypertension; Translations: [Secondary hypertension, unspecified] Onset: 5 11-24-2023 Chronic Nutritional deficiencies (6 sources) Vitamin D deficiency; Translations: [Vitamin D deficiency, unspecified] Onset: 5 Chronic Osteoporosis (20 sources) Senile osteoporosis; Translations: [Age-related osteoporosis without current pathological fracture] Onset: 3 06-06-2023 Chronic Other bone disease and musculoskeletal deformities (2 sources) Other specified disorders of bone, lower leg; Translations: [Other specified disorders of bone, lower leg] Onset: 4 Episodic Other connective tissue disease (20 sources) Cramp in lower limb; Translations: [Sleep related leg cramps] Onset: 8 10-05-2017 Chronic Other connective tissue disease (6 sources) Pain in left lower limb; Translations: [Pain in left leg] 04-09-2024 Episodic Other diseases of kidney and ureters (2 sources) Complex renal cyst; Translations: [Cyst of kidney, acquired] 09-20-2023 Episodic Other ear and sense organ disorders (3 sources) Mixed conductive AND sensorineural hearing loss; Translations: [Mixed conductive and sensorineural hearing loss, unilateral, left ear with restricted hearing on the contralateral side] 08-16-2023 Chronic Other ear and sense organ disorders (20 sources) Hearing loss; Translations: [Unspecified hearing loss, unspecified ear] Onset: 2 11-28-2023 Chronic Other ear and sense organ disorders (5 sources) Unspecified cholesteatoma, left ear; Translations: [Unspecified cholesteatoma, left ear] Onset: 4 Episodic Other gastrointestinal disorders (20 sources) Diarrhea; Translations: [Diarrhea, unspecified] Onset: 4 04-24-2024 Episodic Other nervous system disorders (20 sources) Compression injury of nerve; 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, unspecified] Onset: 2 06-06-2023 Chronic Other nervous system disorders (1 source) Postoperative pain ; Translations: [Other acute postprocedural pain] 12-18-2023 Episodic Other nutritional; endocrine; and metabolic disorders (20 sources) Body mass index 30+ - obesity; Translations: [Obesity, unspecified] Onset: 3 06-06-2023 Chronic Other nutritional; endocrine; and metabolic disorders (2 sources) Hyperuricemia without signs of inflammatory arthritis and tophaceous disease; Translations: [Other abnormal blood chemistry] Episodic Other nutritional; endocrine; and metabolic disorders (2 sources) Hyperuricemia; Translations: [Hyperuricemia without signs of inflammatory arthritis and tophaceous disease] 09-20-2023 Episodic Other skin disorders (1 source) Mass of skin of right lower limb; Translations: [Disorder of the skin and subcutaneous tissue, unspecified] Episodic Peripheral and visceral atherosclerosis (20 sources) Intermittent claudication; Translations: [Peripheral vascular disease, unspecified] Onset: 3 06-08-2023 Chronic Pulmonary heart disease (20 sources) Pulmonary arterial hypertension; Translations: [Secondary pulmonary arterial hypertension] Onset: 4 03-27-2024 Chronic Residual codes; unclassified (20 sources) Obstructive sleep apnea syndrome; Translations: [Obstructive sleep apnea (adult) (pediatric)] Onset: 1 Chronic Residual codes; unclassified (6 sources) Obstructive sleep apnea (adult) (pediatric); Translations: [Obstructive sleep apnea (adult)(pediatric)] Onset: 1 Resolved: 2 Chronic Residual codes; unclassified (1 source) Preoperative state 12-01-2024 Episodic Substance-related disorders (20 sources) Tobacco dependence syndrome; Translations: [Nicotine dependence, unspecified, uncomplicated] Onset: 2 06-06-2023 Chronic Systemic lupus erythematosus and connective tissue disorders (20 sources) Lupus erythematosus; Translations: [Systemic lupus erythematosus, unspecified] Onset: 6 Resolved: 2 03-03-2016 Chronic Thyroid disorders (20 sources) Thyroid nodule; Translations: [Nontoxic single thyroid nodule] Onset: 4 04-04-2024 Chronic Unclassified (2 sources) Unknown / UNK(Unknown) Onset: 6 Unclassified (2 sources) Post-op; Translations: [Post-op] Onset: Past or Other Problems Problem Classification Problem Date Documented Date Episodic/Chronic Deficiency and other anemia (3 sources) Anemia, unspecified; Translations: [Anemia, unspecified] Onset: 06-28-2023 Episodic Deficiency and other anemia (20 sources) 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 B>12< deficiency; Translations: [Other megaloblastic anemias, not elsewhere classified] Onset: 03-05-2024 03-05-2024 Episodic Deficiency and other anemia (1 source) Other megaloblastic anemias, not elsewhere classified; Translations: [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 deficiency] Onset: 03-05-2024 Episodic Diseases of mouth; excluding dental (20 sources) Xerostomia; Translations: [Dry mouth, unspecified] Onset: 01-05-2017 06-06-2023 Episodic Fluid and electrolyte disorders (20 sources) Hyperkalemia with normal acid-base balance; Translations: [Hyperkalemia] Onset: 11-27-2023 11-27-2023 Episodic Malaise and fatigue (20 sources) Malaise and fatigue; Translations: [Other malaise] Onset: 11-28-2023 Episodic Mood disorders (18 sources) Mood disorders Onset: 05-14-2024 05-14-2024 Nonspecific chest pain (20 sources) Chest pain; Translations: [Other chest pain] Onset: 04-04-2024 04-04-2024 Episodic Other aftercare (2 sources) Postoperative visit; Translations: [Encounter for other specified surgical aftercare] Onset: 02-06-2024 01-02-2024 Episodic Other aftercare (2 sources) Encounter for other specified surgical aftercare; Translations: [Encounter for other specified surgical aftercare] Onset: 02-06-2024 Episodic Other bone disease and musculoskeletal deformities (5 sources) Disorder of bone, unspecified; Translations: [Other specified disorders of bone, lower leg] Onset: 05-24-2016 Episodic Other connective tissue disease (1 source) Pain in right leg; Translations: [PAIN IN RIGHT LEG] Onset: 05-24-2016 Episodic Other connective tissue disease (20 sources) Pain in bilateral legs; Translations: [Pain in right leg] Onset: 06-06-2023 06-06-2023 Episodic Other connective tissue disease (20 sources) Other symptoms and signs involving the musculoskeletal system; Translations: [Other musculoskeletal symptoms referable to limbs] Onset: 11-28-2023 11-28-2023 Episodic Other connective tissue disease (3 sources) Pain in left lower leg; Translations: [Pain in left lower leg] Onset: 05-31-2024 Episodic Other connective tissue disease (1 source) Pain in left leg; Translations: [Pain in left leg] Onset: 04-10-2024 Episodic Other diseases of kidney and ureters (6 sources) Cyst of kidney, acquired; Translations: [Cystic kidney disease, unspecified] Onset: 06-28-2023 Episodic Other ear and sense organ disorders (20 sources) Cholesteatoma; Translations: [Unspecified cholesteatoma, left ear] Onset: 11-14-2023 11-14-2023 Episodic Other lower respiratory disease (20 sources) Multiple nodules of lung; Translations: [Other nonspecific abnormal finding of lung field] Onset: 05-07-2024 Episodic Other nervous system disorders (2 sources) Other acute postprocedural pain; Translations: [Other acute postprocedural pain] Onset: 12-18-2023 Episodic Other non-traumatic joint disorders (20 sources) Pain of left wrist; Translations: [Pain in left wrist] Onset: 06-06-2023 06-06-2023 Episodic Other non-traumatic joint disorders (20 sources) Pain in left knee; Translations: [Pain in joint, lower leg] Onset: 04-04-2024 04-04-2024 Episodic Other nutritional; endocrine; and metabolic disorders (20 sources) Abnormal weight loss; Translations: [Abnormal weight loss] Onset: 03-03-2016 03-03-2016 Episodic Other nutritional; endocrine; and metabolic disorders (1 source) Abnormal weight loss; Translations: [Abnormal weight loss] Onset: 03-03-2016 Episodic Other screening for suspected conditions (not mental disorders or infectious disease) (20 sources) Patient encounter status; Translations: [Encounter for screening mammogram for malignant neoplasm of breast] Onset: 04-04-2024 04-04-2024 Episodic Otitis media and related conditions (20 sources) Perforation of left tympanic membrane; Translations: [Unspecified perforation of tympanic membrane, left ear] Onset: 06-29-2022 08-16-2023 Episodic Residual codes; unclassified (20 sources) Family history of breast cancer; Translations: [Family history of malignant neoplasm of breast] Onset: 04-13-2017 04-13-2017 Episodic Residual codes; unclassified (10 sources) Family history of cancer; Translations: [Family history of malignant neoplasm, unspecified] Onset: 08-15-2024 08-15-2024 Episodic Spondylosis; intervertebral disc disorders; other back problems (20 sources) Low back pain; Translations: [Lumbar back pain] Onset: 02-12-2024 02-12-2024 Episodic Thyroid disorders (20 sources) Disorder of thyroid gland; Translations: [Disorder of thyroid, unspecified] Onset: 06-28-2022 06-06-2023 Episodic Tuberculosis (1 source) Acute miliary tuberculosis, unspecified; Translations: [Acute miliary tuberculosis, unspecified] Onset: 04-04-2024 Episodic Unclassified (5 sources) Onset: 11-14-2023 Resolved: 11-26-2024 11-14-2023 Results Test Name Value Interpretation Reference Range Facility HbA1c (Bld) [Mass fraction]o n 12-25-2024 Interpretation and review of laboratory results Normal [facility] - Hematology and Cell countson 12-25-2024 HbA1c (Bld) [Mass fraction] 5.7 % [facility] CBC W Auto Differential pane l (Bld)on 12-20-2024 Basophils (Bld) [#/Vol] 10*3/uL Normal <0.11 [facility] on above: Order Comment: Speci men Type: BLOOD SPECIMENOrdering Facility: [facility] Address: [address] [place] [address] Performed By: #### 5 7021-8 ####[facility] LABCLIA [id number] [place] [address] Basophils/100 WBC (Bld) 0.0 % Normal [facility] Comment on above: Order Comment: Speci men Type: BLOOD SPECIMENOrdering Facility: [facility] Address: [address] [place] [address] Performed By: #### 5 7021-8 ####[facility] LABCLIA [id number] [place] [address] Differential cell count method Nom (Bld) Auto Normal [facility] Comment on above: Order Comment: Speci men Type: BLOOD SPECIMENOrdering Facility: [facility] Address: [address] [place] [address] Performed By: #### 5 7021-8 ####[facility] LABCLIA [id number] [place] [address] Eosinophils (Bld) [#/Vol] 0.04 10*3/uL Normal <0.46 [facility] Comment on above: Order Comment: Speci men Type: BLOOD SPECIMENOrdering Facility: [facility] Address: [address] [place] [address] Performed By: #### 5 7021-8 ####[facility] LABCLIA [id number] [place] [address] Eosinophils/100 WBC (Bld) 0.8 % Normal [facility] Comment on above: Order Comment: Speci men Type: BLOOD SPECIMENOrdering Facility: [facility] Address: [address] [place] [address] Performed By: #### 5 7021-8 ####[facility] LABCLIA [id number] [place] [address] Erythrocyte distribution width (RBC) [Ratio] 14.3 % Normal 11.5-15.0 [facility] Comment on above: Order Comment: Speci men Type: BLOOD SPECIMENOrdering Facility: [facility] Address: [address] [place] [address] Performed By: #### 5 7021-8 ####[facility] LABIA [id number] [place] [address] Hematocrit (Bld) [Volume fraction] 33.8 % Low 36.0-46.0 [facility] Comment on above: Order Comment: Speci men Type: BLOOD SPECIMENOrdering Facility: [facility] Address: [address] [place] [address] Performed By: #### 5 7021-8 ####[facility] LABCLIA [id number] [place] [address] Hemoglobin (Bld) [Mass/Vol] 10.8 g/dL Low 11.5-15.5 [facility] Comment on above: Order Comment: Speci men Type: BLOOD SPECIMENOrdering Facility: [facility] Address: [address] [place] [address] Performed By: #### 5 7021-8 ####[facility] LABCLIA [id number] [place] [address] Immature granulocytes (Bld) [#/Vol] 10*3/uL Normal <0.10 [facility] Comment on above: Order Comment: Speci men Type: BLOOD SPECIMENOrdering Facility: [facility] Address: [address] [place] [address] Performed By: #### 5 7021-8 ####[facility] LABCLIA [id number] [place] [address] Immature granulocytes/100 WBC (Bld) 0.4 % Normal [facility] Comment on above: Order Comment: Speci men Type: BLOOD SPECIMENOrdering Facility: [facility] Address: [address] [place] [address] Performed By: #### 5 7021-8 ####[facility] LABCLIA [id number] [place] [address] Lymphocytes (Bld) [#/Vol] 1.86 10*3/uL Normal 1.00-4.00 [facility] Comment on above: Order Comment: Speci men Type: BLOOD SPECIMENOrdering Facility: [facility] Address: [address] [place] [address] Performed By: #### 5 7021-8 ####[facility] LABCLIA [id number] [place] [address] Lymphocytes/100 WBC (Bld) 38.9 % Normal [facility] Comment on above: Order Comment: Speci men Type: BLOOD SPECIMENOrdering Facility: [facility] Address: [address] [place] [address] Performed By: #### 5 7021-8 ####[facility] LABCLIA [id number] [place] [address] MCH (RBC) [Entitic mass] 32.5 pg Normal 26.0-34.0 [facility] Comment on above: Order Comment: Speci men Type: BLOOD SPECIMENOrdering Facility: [facility] Address: [address] [place] [address] Performed By: #### 5 7021-8 ####[facility] LABCLIA [id number] [place] [address] MCHC (RBC) [Mass/Vol] 32.0 g/dL Normal 30.5-36.0 [facility] Comment on above: Order Comment: Speci men Type: BLOOD SPECIMENOrdering Facility: [facility] Address: [address] [place] [address] Performed By: #### 5 7021-8 ####[facility] LABCLIA [id number] [place] [address] MCV (RBC) [Entitic vol] 101.8 fL High 80.0-100.0 [facility] Comment on above: Order Comment: Speci men Type: BLOOD SPECIMENOrdering Facility: [facility] Address: [address] [place] [address] Performed By: #### 5 7021-8 ####[facility] LABCLIA [id number] [place] [address] Monocytes (Bld) [#/Vol] 0.22 10*3/uL Normal <0.87 [facility] Comment on above: Order Comment: Speci men Type: BLOOD SPECIMENOrdering Facility: [facility] Address: [address] [place] [address] Performed By: #### 5 7021-8 ####[facility] LABCLIA [id number] [place] [address] Monocytes/100 WBC (Bld) 4.6 % Normal [facility] Comment on above: Order Comment: Speci men Type: BLOOD SPECIMENOrdering Facility: [facility] Address: [address] [place] [address] Performed By: #### 5 7021-8 ####[facility] LABCLIA [id number] [place] [address] Neutrophils (Bld) [#/Vol] 2.64 10*3/uL Normal 1.45-7.50 [facility] Comment on above: Order Comment: Speci men Type: BLOOD SPECIMENOrdering Facility: [facility] Address: [address] [place] [address] Performed By: #### 5 7021-8 ####[facility] LABCLIA [id number] [place] [address] Neutrophils/100 WBC (Bld) 55.3 % Normal [facility] Comment on above: Order Comment: Speci men Type: BLOOD SPECIMENOrdering Facility: [facility] Address: [address] [place] [address] Performed By: #### 5 7021-8 ####[facility] LABCLIA [id number] [place] [address] Nucleated RBC (Bld) [#/Vol] 10*3/uL Normal <0.01 [facility] Comment on above: Order Comment: Speci men Type: BLOOD SPECIMENOrdering Facility: [facility] Address: [address] [place], [place] [address] Performed By: #### 5 7021-8 ####[facility] LABCLIA [id number] [place] [address] Nucleated RBC/100 WBC (Bld) [Ratio] 0.0 /100 WBC Normal [facility] Comment on above: Order Comment: Speci men Type: BLOOD SPECIMENOrdering Facility: [facility] Address: [address] [place] [address] Performed By: #### 5 7021-8 ####[facility] LABCLIA [id number] [place] [address] Platelet mean volume (Bld) [Entitic vol] 8.9 fL Low 9.0-12.7 [facility] Comment on above: Order Comment: Speci men Type: BLOOD SPECIMENOrdering Facility: [facility] Address: [address] [place] [address] Performed By: #### 5 7021-8 ####[facility] LABCLIA [id number] [place] [address] Platelets (Bld) [#/Vol] 156 10*3/uL Normal 150-400 [facility] Comment on above: Order Comment: Speci men Type: BLOOD SPECIMENOrdering Facility: [facility] Address: [address] [place] [address] Performed By: #### 5 7021-8 ####[facility] LABCLIA [id number] [place] [address] RBC (Bld) [#/Vol] 3.32 10*6/uL Low 3.90-5.20 [facility] Comment on above: Order Comment: Speci men Type: BLOOD SPECIMENOrdering Facility: [facility] Address: [address] [place] [address] Performed By: #### 5 7021-8 ####[facility] LABCLIA [id number] [place] [address] WBC (Bld) [#/Vol] 4.78 10*3/uL Normal 3.70-11.00 [facility] Comment on above: Order Comment: Speci men Type: BLOOD SPECIMENOrdering Facility: [facility] Address: [address] [place] [address] Performed By: #### 5 7021-8 ####[facility] LABCLIA [id number] [place] [address] CT CHEST WO CONon 12-12-[address] [address] [address] Scan Report Signed Patient: ANDREI FISH MR#: [id number] : 1950 Acct:[id number] Age/Sex: 74 / F ADM Date: 12/12/24 Loc: CT Attending Dr: Stephanie Dumont NP Ordering Physician: Stephanie Dumont NP Date of Service: 12/12/24 Procedure(s): CT chest wo con Accession Number(s): [id number] cc: Stephanie Dumont NP [address] [address] Patient Name: ANDREI FISH MRN: [facility]:[id number] date: 1950 Sex: F Assigned Patient Location: CT Current Patient Location: CT Accession/Order Number: [id number] Exam Date: 12/12/2024 16:06 Report Date: 12/12/2024 [...] Peralta M.D. 12/12/2024 4:12 PM Dictation Location: [place] [address] Electronically authenticated by: [id number] Y Date: 12/12/2024 16:12 Dictated By: Valentin Peralta D.O. Signed By: 12/12/241613 DD/ 11 TD/TT: Title Clerk: [facility] Radiology, Radiologist, MD - 12/12/2024 [place] [address] CT Scan Report Signed Patient: ANDREI FISH MR#: [id number] : 1950 Acct:[id number] Age/Sex: 74 / F ADM Date: 12/12/24 Loc: CT Attending Dr: Stephanie Dumont NP Ordering Physician: Stephanie Dumont NP Date of Service: 12/12/24 Procedure(s): CT chest wo con Accession Number(s): [id number] cc: Stephanie Dumont NP The [place] [address] Patient Name: ANDREI FISH MRN: [facility]:[id number] date: 1950 Sex: F Assigned Patient Location: CT Current Patient Location: CT Accession/Order Number: [id number] Exam Date: 12/12/2024 16:06 Report Date: 12/12/2024 [...] Peralta M.D. 12/12/2024 4:12 PM Dictation Location: [employer] Electronically authenticated by: [id number] Y Date: 12/12/2024 16:12 Dictated By: Valentin Peralta D.O. Signed By: 12/12/241613 DD/ 11 TD/TT: Title Clerk: [facility] Radiology Study observation (narrative) [facility] CT CHEST WO CONOrdered By: Jerrod parekhiologdoug Radiology on 12-12-2024 [facility] Work Phone: CBC W Auto Differential pane l (Bld)on 2024 Basophils (Bld) [#/Vol] 10*3/uL Normal <0.11 [facility] Comment on above: Order Comment: Speci men Type: BLOOD SPECIMENOrdering Facility: [facility] Address: [address] [place] [address] Performed By: #### 1 4196-0, 13202-9 ####[facility] LABCLIA [id number] [place] [address] Basophils/100 WBC (Bld) 0.2 % Normal [facility] Comment on above: Order Comment: Speci men Type: BLOOD SPECIMENOrdering Facility: [facility] Address: [address] [place] [address] Performed By: #### 1 4196-0, 59587-4 ####[facility] LABCLIA [id number] [place] [address] Differential cell count method Nom (Bld) Auto Normal [facility] Comment on above: Order Comment: Speci men Type: BLOOD SPECIMENOrdering Facility: [facility] Address: [address] [place] [address] Performed By: #### 1 4196-0, 48711-2 ####[facility] LABCLIA [id number] [place] [address] Eosinophils (Bld) [#/Vol] 0.05 10*3/uL Normal <0.46 [facility] Comment on above: Order Comment: Speci men Type: BLOOD SPECIMENOrdering Facility: [facility] Address: [address] [place] [address] Performed By: #### 1 4196-0, 44821-1 ####[facility] LABIA [id number] [place] [address] Eosinophils/100 WBC (Bld) 0.9 % Normal [facility] Comment on above: Order Comment: Speci men Type: BLOOD SPECIMENOrdering Facility: [facility] Address: [address] [place] [address] Performed By: #### 1 4196-0, 63668-4 ####[facility] LABCLIA [id number] [place] [address] Erythrocyte distribution width (RBC) [Ratio] 14.0 % Normal 11.5-15.0 [facility] Comment on above: Order Comment: Speci men Type: BLOOD SPECIMENOrdering Facility: [facility] Address: [address] [place] [address] Performed By: #### 1 4196-0, 02648-3 ####[facility] LABCLIA [id number] [place] [address] Hematocrit (Bld) [Volume fraction] 32.4 % Low 36.0-46.0 [facility] Comment on above: Order Comment: Speci men Type: BLOOD SPECIMENOrdering Facility: [facility] Address: [address] [place] [address] Performed By: #### 1 4196-0, 56957-7 ####[facility] LABCLIA [id number] [place] [address] Hemoglobin (Bld) [Mass/Vol] 10.4 g/dL Low 11.5-15.5 [facility] Comment on above: Order Comment: Speci men Type: BLOOD SPECIMENOrdering Facility: [facility] Address: [address] [place] [address] Performed By: #### 1 4196-0, 93517-7 ####[facility] LABCLIA [id number] [place] [address] Immature granulocytes (Bld) [#/Vol] 10*3/uL Normal <0.10 [facility] Comment on above: Order Comment: Speci men Type: BLOOD SPECIMENOrdering Facility: [facility] Address: [address] [place] [address] Performed By: #### 1 4196-0, 63694-9 ####[facility] LABIA [id number] [place] [address] Immature granulocytes/100 WBC (Bld) 0.2 % Normal [facility] Comment on above: Order Comment: Speci men Type: BLOOD SPECIMENOrdering Facility: [facility] Address: [address] [place] [address] Performed By: #### 1 4196-0, 31351-3 ####[facility] LABCLIA [id number] [place] [address] Lymphocytes (Bld) [#/Vol] 2.47 10*3/uL Normal 1.00-4.00 [facility] Comment on above: Order Comment: Speci men Type: BLOOD SPECIMENOrdering Facility: [facility] Address: [address] [place] [address] Performed By: #### 1 4196-0, 55624-0 ####[facility] LABIA [id number] [place] [address] Lymphocytes/100 WBC (Bld) 43.2 % Normal [facility] Comment on above: Order Comment: Speci men Type: BLOOD SPECIMENOrdering Facility: [facility] Address: [address] [place] [address] Performed By: #### 1 4196-0, 03249-1 ####[facility] LABCLIA [id number] [place] [address] MCH (RBC) [Entitic mass] 32.3 pg Normal 26.0-34.0 [facility] Comment on above: Order Comment: Speci men Type: BLOOD SPECIMENOrdering Facility: [facility] Address: [address] [place] [address] Performed By: #### 1 4196-0, 03705-1 ####[facility] LABIA [id number] [place] [address] MCHC (RBC) [Mass/Vol] 32.1 g/dL Normal 30.5-36.0 [facility] Comment on above: Order Comment: Speci men Type: BLOOD SPECIMENOrdering Facility: [facility] Address: [address] [place] [address] Performed By: #### 1 4196-0, 98708-1 ####[facility] LABCLIA [id number] [place] [address] MCV (RBC) [Entitic vol] 100.6 fL High 80.0-100.0 [facility] Comment on above: Order Comment: Speci men Type: BLOOD SPECIMENOrdering Facility: [facility] Address: [address] [place] [address] Performed By: #### 1 4196-0, 59086-3 ####[facility] LABCLIA [id number] [place] [address] Monocytes (Bld) [#/Vol] 0.28 10*3/uL Normal <0.87 [facility] Comment on above: Order Comment: Speci men Type: BLOOD SPECIMENOrdering Facility: [facility] Address: [address] [place] [address] Performed By: #### 1 4196-0, 33988-2 ####[facility] LABCLIA [id number] [place] [address] Monocytes/100 WBC (Bld) 4.9 % Normal [facility] Comment on above: Order Comment: Speci men Type: BLOOD SPECIMENOrdering Facility: [facility] Address: [address] [place] [address] Performed By: #### 1 4196-0, 62266-2 ####[facility] LABCLIA [id number] [place] [address] Neutrophils (Bld) [#/Vol] 2.90 10*3/uL Normal 1.45-7.50 [facility] Comment on above: Order Comment: Speci men Type: BLOOD SPECIMENOrdering Facility: [facility] Address: [address] [place] [address] Performed By: #### 1 4196-0, 97758-2 ####[facility] LABCLIA [id number] [place] [address] Neutrophils/100 WBC (Bld) 50.6 % Normal [facility] Comment on above: Order Comment: Speci men Type: BLOOD SPECIMENOrdering Facility: [facility] Address: [address] [place] [address] Performed By: #### 1 4196-0, 97031-2 ####[facility] LABCLIA [id number] [place] [address] Nucleated RBC (Bld) [#/Vol] 10*3/uL Normal <0.01 [facility] Comment on above: Order Comment: Speci men Type: BLOOD SPECIMENOrdering Facility: [facility] Address: [address] [place] [address] Performed By: #### 1 4196-0, 88209-7 ####[facility] LABCLIA [id number] [place] [address] Nucleated RBC/100 WBC (Bld) [Ratio] 0.0 /100 WBC Normal [facility] Comment on above: Order Comment: Speci men Type: BLOOD SPECIMENOrdering Facility: [facility] Address: [address] [place] [address] Performed By: #### 1 4196-0, 84498-8 ####[facility]CL[facility] [id number] [place] [address] Platelet mean volume (Bld) [Entitic vol] 9.2 fL Normal 9.0-12.7 [facility] Comment on above: Order Comment: Speci men Type: BLOOD SPECIMENOrdering Facility: [facility] Address: [address] [place] [address] Performed By: #### 1 4196-0, 93632-6 ####[facility] LABIA [id number] [place] [address] Platelets (Bld) [#/Vol] 165 10*3/uL Normal 150-400 [facility] Comment on above: Order Comment: Speci men Type: BLOOD SPECIMENOrdering Facility: [facility] Address: [address] [place] [address] Performed By: #### 1 4196-0, 21058-8 ####[facility] LABIA [id number] [place] [address] RBC (Bld) [#/Vol] 3.22 10*6/uL Low 3.90-5.20 [facility] Comment on above: Order Comment: Speci men Type: BLOOD SPECIMENOrdering Facility: [facility] Address: [address] [place] [address] Performed By: #### 1 4196-0, 91621-4 ####[facility] LABCLIA [id number] [place] [address] WBC (Bld) [#/Vol] 5.72 10*3/uL Normal 3.70-11.00 [facility] Comment on above: Order Comment: Speci men Type: BLOOD SPECIMENOrdering Facility: [facility] Address: [address] [place] [address] Performed By: #### 1 4196-0, 75996-1 ####[facility] LABCLIA [id number] [place] [address] Comprehensive metabolic 2000 panelon 2024 Albumin [Mass/Vol] 3.7 g/dL Low 3.9-4.9 [facility] Comment on above: Order Comment: Speci men Type: BLOOD SPECIMENOrdering Facility: [facility] Address: [address] [place] [address] Performed By: #### 2 4323-8 ####[facility] LABIA [id number] [place] [address] ALP [Catalytic activity/Vol] 81 U/L Normal 34-123 [facility] Comment on above: Order Comment: Speci men Type: BLOOD SPECIMENOrdering Facility: [facility] Address: [address] [place] [address] Performed By: #### 2 4323-8 ####[facility] LABCLIA [id number] [place] [address] ALT [Catalytic activity/Vol] 12 U/L Normal 7-38 [facility] Comment on above: Order Comment: Speci men Type: BLOOD SPECIMENOrdering Facility: [facility] Address: [address] [place] [address] Performed By: #### 2 4323-8 ####[facility] LABCLIA [id number] [place] [address] Anion gap [Moles/Vol] 8 mmol/L Normal 8-15 [facility] Comment on above: Order Comment: Speci men Type: BLOOD SPECIMENOrdering Facility: [facility] Address: [address] [place] [address] Performed By: #### 2 4323-8 ####[facility] LABCLIA [id number] [place] [address] AST [Catalytic activity/Vol] 21 U/L Normal 13-35 [facility] Comment on above: Order Comment: Speci men Type: BLOOD SPECIMENOrdering Facility: [facility] Address: [address] [place] [address] Performed By: #### 2 4323-8 ####[facility] LABCLIA [id number] [place] [address] Bilirubin [Mass/Vol] 0.4 mg/dL Normal 0.2-1.3 [facility] Comment on above: Order Comment: Speci men Type: BLOOD SPECIMENOrdering Facility: [facility] Address: [address] [place] [address] Performed By: #### 2 4323-8 ####[facility] LABCLIA [id number] [place] [address] Calcium [Mass/Vol] 10.0 mg/dL Normal 8.5-10.2 [facility] Comment on above: Order Comment: Speci men Type: BLOOD SPECIMENOrdering Facility: [facility] Address: [address] [place] [address] Performed By: #### 2 4323-8 ####[facility] LABCLIA [id number] [place] [address] Chloride [Moles/Vol] 106 mmol/L Normal 98-107 [facility] Comment on above: Order Comment: Speci men Type: BLOOD SPECIMENOrdering Facility: [facility] Address: [address] [place] [address] Performed By: #### 2 4323-8 ####[facility] LABCLIA [id number] [place] [address] CO2 [Moles/Vol] 23 mmol/L Normal 22-30 [facility] Comment on above: Order Comment: Speci men Type: BLOOD SPECIMENOrdering Facility: [facility] Address: [address] [place] [address] Performed By: #### 2 4323-8 ####[facility] LABCLIA [id number] [place] [address] Creatinine [Mass/Vol] 1.16 mg/dL High 0.58-0.96 [facility] Comment on above: Order Comment: Speci men Type: BLOOD SPECIMENOrdering Facility: [facility] Address: [address] [place] [address] Performed By: #### 2 4323-8 ####[facility] LABCLIA [id number] [place] [address] Creatinine and Glomerular filtration rate.predicted panel (S/P/Bld) 50 mL/min/1.73m??? Low >=60 [facility] Comment on above: Order Comment: Speci men Type: BLOOD SPECIMENOrdering Facility: [facility] Address: [address] [place] [address] Result Comment: Miryam mated Glomerular Filtration Rate [...] actual GFR. Performed By: #### 2 4323-8 ####[facility] LABIA [id number] [place] [address] Glucose [Mass/Vol] 98 mg/dL Normal 74-99 [facility] Comment on above: Order Comment: Speci men Type: BLOOD SPECIMENOrdering Facility: [facility] Address: [address] [place] [address] Result Comment: The [place] Diabetes Association (ADA) provides guidance for cutoff [...] Standards of Medical Care in Diabetes 2016, [place] [employer]. Diabetes Care. 2016.39(Suppl 1). Performed By: #### 2 4323-8 ####[facility] LABCLIA [id number] [place] [address] Potassium [Moles/Vol] 4.9 mmol/L Normal 3.7-5.1 [facility] Comment on above: Order Comment: Speci men Type: BLOOD SPECIMENOrdering Facility: [facility] Address: [address] [place] [address] Performed By: #### 2 4323-8 ####[facility] LABCLIA [id number] [place] [address] Protein [Mass/Vol] 7.1 g/dL Normal 6.3-8.0 [facility] Comment on above: Order Comment: Speci men Type: BLOOD SPECIMENOrdering Facility: [facility] Address: [address] [place] [address] Performed By: #### 2 4323-8 ####[facility] LABCLIA [id number] [place] [address] Sodium [Moles/Vol] 137 mmol/L Normal 136-144 [facility] Comment on above: Order Comment: Speci men Type: BLOOD SPECIMENOrdering Facility: [facility] Address: [address] [place] [id number] Performed By: #### 2 4323-8 ####[facility] LABCLIA [id number] [place] [address] Urea nitrogen [Mass/Vol] 36 mg/dL High 7-21 [facility] Comment on above: Order Comment: Speci men Type: BLOOD SPECIMENOrdering Facility: [facility] Address: [address] [place] [address] Performed By: #### 2 4323-8 ####[facility] LABCLIA [id number] [place] [address] EPO SerPl-aCncon 2024 Erythropoietin (EPO) Qn 66.5 mIU/mL High 2.6-18.5 [facility] Comment on above: Order Comment: Speci men Type: BLOOD SPECIMENOrdering Facility: [facility] Address: [address] [place] [address] Performed By: #### 1 5061-5 ####[facility] LABIA [id number] [place] [address] [place] Ferritin SerPl-mCncon 2024 Ferritin [Mass/Vol] 105.0 ng/mL Normal 14.7-205.1 [facility] Comment on above: Order Comment: Speci men Type: BLOOD SPECIMENOrdering Facility: [facility] Address: [address] [place] [address] Performed By: #### 2 132-9, 56190-0, 2284-8, 2276-4 ####[facility] LABCLIA [id number] [place] [address] [place] Folate SerPl-mCncon 12-07-19 Folate [Mass/Vol] 8.1 ng/mL Normal >4.7 [facility] Comment on above: Order Comment: Speci men Type: BLOOD SPECIMENOrdering Facility: [facility] Address: [address] [place] [address] Performed By: #### 2 132-9, 01760-8, 2284-8, 2276-4 ####[facility] LABIA [id number] [address] [address] [place] Iron and Iron binding capaci ty panelon 2024 Iron [Mass/Vol] 71 ug/dL Normal 41-186 [facility] Comment on above: Order Comment: Speci men Type: BLOOD SPECIMENOrdering Facility: [facility] Address: [address] [place] [address] Performed By: #### 2 132-9, 67384-3, 2284-8, 6-4 ####[facility] [id number] [place] [id number] [place] Iron binding capacity [Mass/Vol] 329 ug/dL Normal 232-386 [facility] Comment on above: Order Comment: Speci men Type: BLOOD SPECIMENOrdering Facility: [facility] Address: [address] [place] [address] Performed By: #### 2 132-9, 86134-6, 4-8, 6-4 ####[facility] [id number] [place] [id number] [place] Iron/TIBC [Molar ratio] 21.6 % Normal 15.0-57.0 [facility] Comment on above: Order Comment: Speci men Type: BLOOD SPECIMENOrdering Facility: [facility] Address: [address] [place] [address] Performed By: #### 2 132-9, 90773-5, 2284-8, 6-4 ####[facility] [id number] [place] [id number] [place] Retics #on 2024 Reticulocytes (Bld) [#/Vol] 0.84587 10*3/uL Normal 0.018-0.100 [facility] Comment on above: Order Comment: Speci men Type: BLOOD SPECIMENOrdering Facility: [facility] Address: [address] [place] [address] Performed By: #### 1 4196-0, 65629-3 ####[facility] LABCLIA [id number] [place] [address] Reticulocytes (Bld) [#/Vol]o n 2024 Reticulocytes/100 RBC (Bld) 1.8 % Normal 0.4-2.0 [facility] Comment on above: Order Comment: Speci men Type: BLOOD SPECIMENOrdering Facility: [facility] Address: [address] [place] [address] Performed By: #### 1 4196-0, 27344-1 ####[facility] LABCLIA [id number] [place] [address] Vit B12 [facility] Cobalamin (Vitamin B12) [Mass/Vol] 820 pg/mL Normal 232-1245 [facility] Comment on above: Order Comment: Speci men Type: BLOOD SPECIMENOrdering Facility: [facility] Address: [address] [place] [address] Performed By: #### 2 132-9, 03404-2, 2284-8, 2276-4 ####[facility] LABCLIA [id number] [place] [id number] [place] CBC W Auto Differential pane l (Bld)on 11-22-2024 Basophils (Bld) [#/Vol] 10*3/uL Normal <0.11 [facility] Comment on above: Order Comment: Speci men Type: BLOOD SPECIMENOrdering Facility: [facility] Address: [address] [place] [address] Performed By: #### 5 7021-8 ####[facility] LABIA [id number] [place] [address] Basophils/100 WBC (Bld) 0.3 % Normal [facility] Comment on above: Order Comment: Speci men Type: BLOOD SPECIMENOrdering Facility: [facility] Address: [address] [place], [place] [address] Performed By: #### 5 7021-8 ####[facility] LABCLIA [id number] [place] [address] Differential cell count method Nom (Bld) Auto Normal [facility] Comment on above: Order Comment: Speci men Type: BLOOD SPECIMENOrdering Facility: [facility] Address: [address] [place] [address] Performed By: #### 5 7021-8 ####[facility] LABCLIA [id number] [place] [address] Eosinophils (Bld) [#/Vol] 0.06 10*3/uL Normal <0.46 [facility] Comment on above: Order Comment: Speci men Type: BLOOD SPECIMENOrdering Facility: [facility] Address: [address] [place] [address] Performed By: #### 5 7021-8 ####[facility] LABCLIA [id number] [place] [address] Eosinophils/100 WBC (Bld) 1.0 % Normal [facility] Comment on above: Order Comment: Speci men Type: BLOOD SPECIMENOrdering Facility: [facility] Address: [address] [place] [address] Performed By: #### 5 7021-8 ####[facility] LABCLIA [id number] [place] [address] Erythrocyte distribution width (RBC) [Ratio] 14.3 % Normal 11.5-15.0 [facility] Comment on above: Order Comment: Speci men Type: BLOOD SPECIMENOrdering Facility: [facility] Address: [address] [place] [address] Performed By: #### 5 7021-8 ####[facility] LABCLIA [id number] [place] [address] Hematocrit (Bld) [Volume fraction] 30.9 % Low 36.0-46.0 [facility] Comment on above: Order Comment: Speci men Type: BLOOD SPECIMENOrdering Facility: [facility] Address: [address] [place] [address] Performed By: #### 5 7021-8 ####[facility] LABCLIA [id number] [place] [address] Hemoglobin (Bld) [Mass/Vol] 9.7 g/dL Low 11.5-15.5 [facility] Comment on above: Order Comment: Speci men Type: BLOOD SPECIMENOrdering Facility: [facility] Address: [address] [place] [address] Performed By: #### 5 7021-8 ####[facility] LABCLIA [id number] [place] [address] Immature granulocytes (Bld) [#/Vol] 10*3/uL Normal <0.10 [facility] Comment on above: Order Comment: Speci men Type: BLOOD SPECIMENOrdering Facility: [facility] Address: [address] [place] [address] Performed By: #### 5 7021-8 ####[facility] LABCLIA [id number] [place] [address] Immature granulocytes/100 WBC (Bld) 0.3 % Normal [facility] Comment on above: Order Comment: Speci men Type: BLOOD SPECIMENOrdering Facility: [facility] Address: [address] [place] [address] Performed By: #### 5 7021-8 ####[facility] LABCLIA [id number] [place] [address] Lymphocytes (Bld) [#/Vol] 2.22 10*3/uL Normal 1.00-4.00 [facility] Comment on above: Order Comment: Speci men Type: BLOOD SPECIMENOrdering Facility: [facility] Address: [address] [place] [address] Performed By: #### 5 7021-8 ####[facility] LABCLIA [id number] [place] [address] Lymphocytes/100 WBC (Bld) 37.9 % Normal [facility] Comment on above: Order Comment: Speci men Type: BLOOD SPECIMENOrdering Facility: [facility] Address: [address] [place] [address] Performed By: #### 5 7021-8 ####[facility] LABIA [id number] [place] [address] MCH (RBC) [Entitic mass] 32.0 pg Normal 26.0-34.0 [facility] Comment on above: Order Comment: Speci men Type: BLOOD SPECIMENOrdering Facility: [facility] Address: [address] [place] [address] Performed By: #### 5 7021-8 ####[facility] LABIA [id number] [place] [address] MCHC (RBC) [Mass/Vol] 31.4 g/dL Normal 30.5-36.0 [facility] Comment on above: Order Comment: Speci men Type: BLOOD SPECIMENOrdering Facility: [facility] Address: [address] [place] [address] Performed By: #### 5 7021-8 ####[facility] LABIA [id number] [place] [address] MCV (RBC) [Entitic vol] 102.0 fL High 80.0-100.0 [facility] Comment on above: Order Comment: Speci men Type: BLOOD SPECIMENOrdering Facility: [facility] Address: [address] [place] [address] Performed By: #### 5 7021-8 ####[facility] LABIA [id number] [place] [address] Monocytes (Bld) [#/Vol] 0.35 10*3/uL Normal <0.87 [facility] Comment on above: Order Comment: Speci men Type: BLOOD SPECIMENOrdering Facility: [facility] Address: [address] [place] [address] Performed By: #### 5 7021-8 ####[facility] LABCLIA [id number] [place] [address] Monocytes/100 WBC (Bld) 6.0 % Normal [facility] Comment on above: Order Comment: Speci men Type: BLOOD SPECIMENOrdering Facility: [facility] Address: [address] [place] [address] Performed By: #### 5 7021-8 ####[facility] LABCLIA [id number] [place] [address] Neutrophils (Bld) [#/Vol] 3.18 10*3/uL Normal 1.45-7.50 [facility] Comment on above: Order Comment: Speci men Type: BLOOD SPECIMENOrdering Facility: [facility] Address: [address] [place] [address] Performed By: #### 5 7021-8 ####[facility] LABCLIA [id number] [place] [address] Neutrophils/100 WBC (Bld) 54.5 % Normal [facility] Comment on above: Order Comment: Speci men Type: BLOOD SPECIMENOrdering Facility: [facility] Address: [address] [place] [address] Performed By: #### 5 7021-8 ####[facility] LABCLIA [id number] [place] [address] Nucleated RBC (Bld) [#/Vol] 10*3/uL Normal <0.01 [facility] Comment on above: Order Comment: Speci men Type: BLOOD SPECIMENOrdering Facility: [facility] Address: [address] [place] [address] Performed By: #### 5 7021-8 ####[facility] LABCLIA [id number] [place] [address] Nucleated RBC/100 WBC (Bld) [Ratio] 0.0 /100 WBC Normal [facility] Comment on above: Order Comment: Speci men Type: BLOOD SPECIMENOrdering Facility: [facility] Address: [address] [place] [address] Performed By: #### 5 7021-8 ####[facility] LABCLIA [id number] [place] [address] Platelet mean volume (Bld) [Entitic vol] 8.9 fL Low 9.0-12.7 [facility] Comment on above: Order Comment: Speci men Type: BLOOD SPECIMENOrdering Facility: [facility] Address: [address] [place] [address] Performed By: #### 5 7021-8 ####[facility] LABCLIA [id number] [place] [address] Platelets (Bld) [#/Vol] 168 10*3/uL Normal 150-400 [facility] Comment on above: Order Comment: Speci men Type: BLOOD SPECIMENOrdering Facility: [facility] Address: [address] [place] [address] Performed By: #### 5 7021-8 ####[facility] LABCLIA [id number] [place] [address] RBC (Bld) [#/Vol] 3.03 10*6/uL Low 3.90-5.20 [facility] Comment on above: Order Comment: Speci men Type: BLOOD SPECIMENOrdering Facility: [facility] Address: [address] [place] [address] Performed By: #### 5 7021-8 ####[facility] LABCLIA [id number] [place] [address] WBC (Bld) [#/Vol] 5.85 10*3/uL Normal 3.70-11.00 [facility] Comment on above: Order Comment: Speci men Type: BLOOD SPECIMENOrdering Facility: [facility] Address: [address] [place] [address] Performed By: #### 5 7021-8 ####[facility] LABCLIA [id number] [place] [address] CNNURSEon 11-22-2024 CNNURSE Normal [facility] CNOVSPon 11-22-2024 CNOVSP Normal [facility] Comprehensive metabolic 2000 panelon 11-22-2024 Albumin [Mass/Vol] 3.8 g/dL Low 3.9-4.9 [facility] Comment on above: Order Comment: Speci men Type: BLOOD SPECIMENOrdering Facility: [facility] Address: [address] [place] [address] Performed By: #### 2 4323-8 ####[facility] LABCLIA [id number] [place] [address] ALP [Catalytic activity/Vol] 83 U/L Normal 34-123 [facility] Comment on above: Order Comment: Speci men Type: BLOOD SPECIMENOrdering Facility: [facility] Address: [address] [place], [place] [address] Performed By: #### 2 4323-8 ####[facility] LABCLIA [id number] [place] [address] ALT [Catalytic activity/Vol] 11 U/L Normal 7-38 [facility] Comment on above: Order Comment: Speci men Type: BLOOD SPECIMENOrdering Facility: [facility] Address: [address] [place] [address] Performed By: #### 2 4323-8 ####[facility] LABCLIA [id number] [place] [address] Anion gap [Moles/Vol] 9 mmol/L Normal 8-15 [facility] Comment on above: Order Comment: Speci men Type: BLOOD SPECIMENOrdering Facility: [facility] Address: [address] [place] [address] Performed By: #### 2 4323-8 ####[facility] LABCLIA [id number] [place] [address] AST [Catalytic activity/Vol] 20 U/L Normal 13-35 [facility] Comment on above: Order Comment: Speci men Type: BLOOD SPECIMENOrdering Facility: [facility] Address: [address] [place] [address] Performed By: #### 2 4323-8 ####[facility] LABCLIA [id number] [place] [address] Bilirubin [Mass/Vol] 0.4 mg/dL Normal 0.2-1.3 [facility] Comment on above: Order Comment: Speci men Type: BLOOD SPECIMENOrdering Facility: [facility] Address: [address] [place] [address] Performed By: #### 2 4323-8 ####[facility] LABCLIA [id number] [place] [address] Calcium [Mass/Vol] 9.4 mg/dL Normal 8.5-10.2 [facility] Comment on above: Order Comment: Speci men Type: BLOOD SPECIMENOrdering Facility: [facility] Address: [address] [place] [address] Performed By: #### 2 4323-8 ####[facility] LABCLIA [id number] [place] [address] Chloride [Moles/Vol] 111 mmol/L High 98-107 [facility] Comment on above: Order Comment: Speci men Type: BLOOD SPECIMENOrdering Facility: [facility] Address: [address] [place] [address] Performed By: #### 2 4323-8 ####[facility] LABCLIA [id number] [place] [address] CO2 [Moles/Vol] 22 mmol/L Normal 22-30 [facility] Comment on above: Order Comment: Speci men Type: BLOOD SPECIMENOrdering Facility: [facility] Address: [address] [place] [address] Performed By: #### 2 4323-8 ####[facility] LABCLIA [id number] [place] [address] Creatinine [Mass/Vol] 1.30 mg/dL High 0.58-0.96 [facility] Comment on above: Order Comment: Speci men Type: BLOOD SPECIMENOrdering Facility: [facility] Address: [address] [place] [address] Performed By: #### 2 4323-8 ####[facility] LABCLIA [id number] [place] [address] Creatinine and Glomerular filtration rate.predicted panel (S/P/Bld) 44 mL/min/1.73m??? Low >=60 [facility] Comment on above: Order Comment: Speci men Type: BLOOD SPECIMENOrdering Facility: [facility] Address: [address] [place] [address] Result Comment: Miryam mated Glomerular Filtration Rate [...] actual GFR. Performed By: #### 2 4323-8 ####[facility] LABCLIA [id number] [place] [address] Glucose [Mass/Vol] 113 mg/dL High 74-99 [facility] Comment on above: Order Comment: Speci men Type: BLOOD SPECIMENOrdering Facility: [facility] Address: [address] [place] [address] Result Comment: The [place] Diabetes Association (ADA) provides guidance for cutoff [...] Standards of Medical Care in Diabetes 2016, [place] [employer]. Diabetes Care. 2016.39(Suppl 1). Performed By: #### 2 4323-8 ####[facility] LABCLIA [id number] [place] [address] Potassium [Moles/Vol] 5.1 mmol/L Normal 3.7-5.1 [facility] Comment on above: Order Comment: Speci men Type: BLOOD SPECIMENOrdering Facility: [facility] Address: [address] [place] [address] Performed By: #### 2 4323-8 ####[facility] LABCLIA [id number] [place] [address] Protein [Mass/Vol] 7.4 g/dL Normal 6.3-8.0 [facility] Comment on above: Order Comment: Speci men Type: BLOOD SPECIMENOrdering Facility: [facility] Address: [address] [place] [address] Performed By: #### 2 4323-8 ####[facility] LABCLIA [id number] [place] [address] Sodium [Moles/Vol] 142 mmol/L Normal 136-144 [facility] Comment on above: Order Comment: Speci men Type: BLOOD SPECIMENOrdering Facility: [facility] Address: [address] [place] [address] Performed By: #### 2 4323-8 ####[facility] LABCLIA [id number] [place] [address] Urea nitrogen [Mass/Vol] 40 mg/dL High 7-21 [facility] Comment on above: Order Comment: Speci men Type: BLOOD SPECIMENOrdering Facility: [facility] Address: [address] [place] [address] Performed By: #### 2 4323-8 ####[facility] LABCLIA [id number] [place] [id number] Ferritin [facility] 20[facility] Ferritin [Mass/Vol] 142.0 ng/mL Normal 14.7-205.1 [facility] Comment on above: Order Comment: Speci men Type: BLOOD SPECIMENOrdering Facility: [facility] Address: [address] [place] [address] Performed By: #### 2 276-4, 77973-9, 9, 2284-02 ####[facility] LABCLIA [id number] [place] [address] [place] Folate SerPl-ncon 11-23-19 25 Folate [Mass/Vol] 4.9 ng/mL Normal >4.7 [facility] Comment on above: Order Comment: Speci men Type: BLOOD SPECIMENOrdering Facility: [facility] Address: [address] [place] [address] Performed By: #### 2 276-4, 23564-6, 9, 2284-02 ####[facility] LABCLIA [id number] [place] [address] [place] Iron and Iron binding capaci panel 11-22-2024 Iron [Mass/Vol] 44 ug/dL Normal 41-186 [facility] Comment on above: Order Comment: Speci men Type: BLOOD SPECIMENOrdering Facility: [facility] Address: [address] [place] [address] Performed By: #### 2 276-4, 37757-9, 9, 2284-02 ####[facility] LABCLIA [id number] [place] [address] [place] Iron binding capacity [Mass/Vol] 362 ug/dL Normal 232-386 [facility] Comment on above: Order Comment: Speci men Type: BLOOD SPECIMENOrdering Facility: [facility] Address: [address] [place] [address] Performed By: #### 2 276-4, 40441-0, 2132-03, 2284-02 ####[facility] [place] LABCLIA [id number] [place] [id number] [place] Iron/TIBC [Molar ratio] 12.2 % Low 15.0-57.0 [facility] Comment on above: Order Comment: Speci men Type: BLOOD SPECIMENOrdering Facility: [facility] Address: [address] [place] [address] Performed By: #### 2 276-4, 59235-5, 2132-03, 2284-02 ####[facility] [place] LABCLIA [id number] [place] [address] [place] Vit B12 [facility] 025 Cobalamin (Vitamin B12) [Mass/Vol] 591 pg/mL Normal 232-1245 [facility] Comment on above: Order Comment: Speci men Type: BLOOD SPECIMENOrdering Facility: [facility] Address: [address] [place] [address] Performed By: #### 2 276-4, 83523-5, 2132-03, 2284-02 ####[facility] LABCLIA [id number] [place] [id number] [place] CBC W Auto Differential pane l (Bld)on 10-11-2024 Basophils (Bld) [#/Vol] 10*3/uL Normal <0.11 [facility] Comment on above: Order Comment: Speci men Type: BLOOD SPECIMENOrdering Facility: [facility] Address: [address] [place] [address] Performed By: #### 5 7021-8 ####[facility] LABCLIA [id number] [place] [address] Basophils/100 WBC (Bld) 0.4 % Normal [facility] Comment on above: Order Comment: Speci men Type: BLOOD SPECIMENOrdering Facility: [facility] Address: [address] [place] [address] Performed By: #### 5 7021-8 ####[facility] LABCLIA [id number] [place] [address] Differential cell count method Nom (Bld) Auto Normal [facility] Comment on above: Order Comment: Speci men Type: BLOOD SPECIMENOrdering Facility: [facility] Address: [address] [place] [address] Performed By: #### 5 7021-8 ####[facility] LABCLIA [id number] [place] [address] Eosinophils (Bld) [#/Vol] 0.04 10*3/uL Normal <0.46 [facility] Comment on above: Order Comment: Speci men Type: BLOOD SPECIMENOrdering Facility: [facility] Address: [address] [place] [address] Performed By: #### 5 7021-8 ####[facility] LABCLIA [id number] [place] [address] Eosinophils/100 WBC (Bld) 0.7 % Normal [facility] Comment on above: Order Comment: Speci men Type: BLOOD SPECIMENOrdering Facility: [facility] Address: [address] [place] [address] Performed By: #### 5 7021-8 ####[facility] LABCLIA [id number] [place] [address] Erythrocyte distribution width (RBC) [Ratio] 14.3 % Normal 11.5-15.0 [facility] Comment on above: Order Comment: Speci men Type: BLOOD SPECIMENOrdering Facility: [facility] Address: [address] [place] [address] Performed By: #### 5 7021-8 ####[facility] LABCLIA [id number] [place] [address] Hematocrit (Bld) [Volume fraction] 35.0 % Low 36.0-46.0 [facility] Comment on above: Order Comment: Speci men Type: BLOOD SPECIMENOrdering Facility: [facility] Address: [address] [place] [address] Performed By: #### 5 7021-8 ####[facility] LABCLIA [id number] [place] [address] Hemoglobin (Bld) [Mass/Vol] 11.1 g/dL Low 11.5-15.5 [facility] Comment on above: Order Comment: Speci men Type: BLOOD SPECIMENOrdering Facility: [facility] Address: [address] [place] [address] Performed By: #### 5 7021-8 ####[facility] LABCLIA [id number] [place] [address] Immature granulocytes (Bld) [#/Vol] 10*3/uL Normal <0.10 [facility] Comment on above: Order Comment: Speci men Type: BLOOD SPECIMENOrdering Facility: [facility] Address: [address] [place] [address] Performed By: #### 5 7021-8 ####[facility] LABCLIA [id number] [place] [address] Immature granulocytes/100 WBC (Bld) 0.2 % Normal [facility] Comment on above: Order Comment: Speci men Type: BLOOD SPECIMENOrdering Facility: [facility] Address: [address] [place] [address] Performed By: #### 5 7021-8 ####[facility] LABCLIA [id number] [place] [address] Lymphocytes (Bld) [#/Vol] 1.92 10*3/uL Normal 1.00-4.00 [facility] Comment on above: Order Comment: Speci men Type: BLOOD SPECIMENOrdering Facility: [facility] Address: [address] [place] [address] Performed By: #### 5 7021-8 ####[facility] LABCLIA [id number] [place] [address] Lymphocytes/100 WBC (Bld) 36.0 % Normal [facility] Comment on above: Order Comment: Speci men Type: BLOOD SPECIMENOrdering Facility: [facility] Address: [address] [place] [address] Performed By: #### 5 7021-8 ####[facility] LABCLIA [id number] [place] [address] MCH (RBC) [Entitic mass] 31.6 pg Normal 26.0-34.0 [facility] Comment on above: Order Comment: Speci men Type: BLOOD SPECIMENOrdering Facility: [facility] Address: [address] [place] [address] Performed By: #### 5 7021-8 ####[facility] LABCLIA [id number] [place] [address] MCHC (RBC) [Mass/Vol] 31.7 g/dL Normal 30.5-36.0 [facility] Comment on above: Order Comment: Speci men Type: BLOOD SPECIMENOrdering Facility: [facility] Address: [address] [place] [address] Performed By: #### 5 7021-8 ####[facility] LABCLIA [id number] [place] [address] MCV (RBC) [Entitic vol] 99.7 fL Normal 80.0-100.0 [facility] Comment on above: Order Comment: Speci men Type: BLOOD SPECIMENOrdering Facility: [facility] Address: [address] [place] [address] Performed By: #### 5 7021-8 ####[facility] LABCLIA [id number] [place] [address] Monocytes (Bld) [#/Vol] 0.20 10*3/uL Normal <0.87 [facility] Comment on above: Order Comment: Speci men Type: BLOOD SPECIMENOrdering Facility: [facility] Address: [address] [place] [address] Performed By: #### 5 7021-8 ####[facility] LABCLIA [id number] [place] [address] Monocytes/100 WBC (Bld) 3.7 % Normal [facility] Comment on above: Order Comment: Speci men Type: BLOOD SPECIMENOrdering Facility: [facility] Address: [address] [place] [address] Performed By: #### 5 7021-8 ####[facility] LABCLIA [id number] [place] [address] Neutrophils (Bld) [#/Vol] 3.15 10*3/uL Normal 1.45-7.50 [facility] Comment on above: Order Comment: Speci men Type: BLOOD SPECIMENOrdering Facility: [facility] Address: [address] [place] [address] Performed By: #### 5 7021-8 ####[facility] LABCLIA [id number] [place] [address] Neutrophils/100 WBC (Bld) 59.0 % Normal [facility] Comment on above: Order Comment: Speci men Type: BLOOD SPECIMENOrdering Facility: [facility] Address: [address] [place] [address] Performed By: #### 5 7021-8 ####[facility] LABCLIA [id number] [place] [address] Nucleated RBC (Bld) [#/Vol] 10*3/uL Normal <0.01 [facility] Comment on above: Order Comment: Speci men Type: BLOOD SPECIMENOrdering Facility: [facility] Address: [address] [place] [address] Performed By: #### 5 7021-8 ####[facility] LABCLIA [id number] [place] [address] Nucleated RBC/100 WBC (Bld) [Ratio] 0.0 /100 WBC Normal [facility] Comment on above: Order Comment: Speci men Type: BLOOD SPECIMENOrdering Facility: [facility] Address: [address] [place] [address] Performed By: #### 5 7021-8 ####[facility] LABCLIA [id number] [place] [address] Platelet mean volume (Bld) [Entitic vol] 9.0 fL Normal 9.0-12.7 [facility] Comment on above: Order Comment: Speci men Type: BLOOD SPECIMENOrdering Facility: [facility] Address: [address] [place] [address] Performed By: #### 5 7021-8 ####[facility] LABIA [id number] [place] [address] Platelets (Bld) [#/Vol] 202 10*3/uL Normal 150-400 [facility] Comment on above: Order Comment: Speci men Type: BLOOD SPECIMENOrdering Facility: [facility] Address: [address] [place] [address] Performed By: #### 5 7021-8 ####[facility] LABCLIA [id number] [place] [address] RBC (Bld) [#/Vol] 3.51 10*6/uL Low 3.90-5.20 [facility] Comment on above: Order Comment: Speci men Type: BLOOD SPECIMENOrdering Facility: [facility] Address: [address] [place] [address] Performed By: #### 5 7021-8 ####[facility] LABIA [id number] [place] [address] WBC (Bld) [#/Vol] 5.34 10*3/uL Normal 3.70-11.00 [facility] Comment on above: Order Comment: Speci men Type: BLOOD SPECIMENOrdering Facility: [facility] Address: [address] [place] [address] Performed By: #### 5 7021-8 ####[facility] LABCLIA [id number] [place] [address] CNNURSEon 10-11-2024 CNNURSE Normal [facility] CNOVSPon 10-11-2024 CNOVSP Normal [facility] Comprehensive metabolic 2000 panelon 10-11-2024 Albumin [Mass/Vol] 3.9 g/dL Normal 3.9-4.9 [facility] Comment on above: Order Comment: Speci men Type: BLOOD SPECIMENOrdering Facility: [facility] Address: [address] [place] [address] Performed By: #### 2 4323-8 ####[facility] LABCLIA [id number] [place] [address] ALP [Catalytic activity/Vol] 86 U/L Normal 34-123 [facility] Comment on above: Order Comment: Speci men Type: BLOOD SPECIMENOrdering Facility: [facility] Address: [address] [place] [address] Performed By: #### 2 4323-8 ####[facility] LABCLIA [id number] [place] [address] ALT [Catalytic activity/Vol] 14 U/L Normal 7-38 [facility] Comment on above: Order Comment: Speci men Type: BLOOD SPECIMENOrdering Facility: [facility] Address: [address] [place] [address] Performed By: #### 2 4323-8 ####[facility] LABCLIA [id number] [place] [address] Anion gap [Moles/Vol] 9 mmol/L Normal 8-15 [facility] Comment on above: Order Comment: Speci men Type: BLOOD SPECIMENOrdering Facility: [facility] Address: [address] [place] [address] Performed By: #### 2 4323-8 ####[facility] LABCLIA [id number] [place] [address] AST [Catalytic activity/Vol] 24 U/L Normal 13-35 [facility] Comment on above: Order Comment: Speci men Type: BLOOD SPECIMENOrdering Facility: [facility] Address: [address] [place] [address] Performed By: #### 2 4323-8 ####[facility] LABCLIA [id number] [place] [address] Bilirubin [Mass/Vol] 0.5 mg/dL Normal 0.2-1.3 [facility] Comment on above: Order Comment: Speci men Type: BLOOD SPECIMENOrdering Facility: [facility] Address: [address] [place] [address] Performed By: #### 2 4323-8 ####[facility] LABCLIA [id number] [place] [address] Calcium [Mass/Vol] 9.7 mg/dL Normal 8.5-10.2 [facility] Comment on above: Order Comment: Speci men Type: BLOOD SPECIMENOrdering Facility: [facility] Address: [address] [place] [address] Performed By: #### 2 4323-8 ####[facility] LABCLIA [id number] [place] [address] Chloride [Moles/Vol] 106 mmol/L Normal 98-107 [facility] Comment on above: Order Comment: Speci men Type: BLOOD SPECIMENOrdering Facility: [facility] Address: [address] [place] [address] Performed By: #### 2 4323-8 ####[facility] LABCLIA [id number] [place] [address] CO2 [Moles/Vol] 23 mmol/L Normal 22-30 [facility] Comment on above: Order Comment: Speci men Type: BLOOD SPECIMENOrdering Facility: [facility] Address: [address] [place] [id number] Performed By: #### 2 4323-8 ####[facility] LABCLIA [id number] [place] [address] Creatinine [Mass/Vol] 1.27 mg/dL High 0.58-0.96 [facility] Comment on above: Order Comment: Speci men Type: BLOOD SPECIMENOrdering Facility: [facility] Address: [address] [place] [address] Performed By: #### 2 4323-8 ####[facility] LABCLIA [id number] [place] [address] Creatinine and Glomerular filtration rate.predicted panel (S/P/Bld) 45 mL/min/1.73m??? Low >=60 [facility] Comment on above: Order Comment: Speci men Type: BLOOD SPECIMENOrdering Facility: [facility] Address: [address] [place] [address] Result Comment: Miryam mated Glomerular Filtration Rate [...] actual GFR. Performed By: #### 2 4323-8 ####[facility] LABIA [id number] [place] [address] Glucose [Mass/Vol] 107 mg/dL High 74-99 [facility] Comment on above: Order Comment: Speci men Type: BLOOD SPECIMENOrdering Facility: [facility] Address: [address] [place] [id number] Result Comment: The [place] [employer] Association (ADA) provides guidance for cutoff [...] Standards of Medical Care in Diabetes 2016, [place] [employer]. Diabetes Care. 2016.39(Suppl 1). Performed By: #### 2 4323-8 ####[facility] LABCLIA [id number] [place] [address] Potassium [Moles/Vol] 5.0 mmol/L Normal 3.7-5.1 [facility] Comment on above: Order Comment: Speci men Type: BLOOD SPECIMENOrdering Facility: [facility] Address: [address] [place] [address] Performed By: #### 2 4323-8 ####[facility] LABIA [id number] [place] [address] Protein [Mass/Vol] 7.7 g/dL Normal 6.3-8.0 [facility] Comment on above: Order Comment: Speci men Type: BLOOD SPECIMENOrdering Facility: [facility] Address: [address] [place] [address] Performed By: #### 2 4323-8 ####[facility] LABCLIA [id number] [place] [address] Sodium [Moles/Vol] 138 mmol/L Normal 136-144 [facility] Comment on above: Order Comment: Speci men Type: BLOOD SPECIMENOrdering Facility: [facility] Address: [address] [place] [address] Performed By: #### 2 4323-8 ####[facility] LABCLIA [id number] [place] [address] Urea nitrogen [Mass/Vol] 31 mg/dL High 7-21 [facility] Comment on above: Order Comment: Speci men Type: BLOOD SPECIMENOrdering Facility: [facility] Address: [address] [place] [address] Performed By: #### 2 4323-8 ####[facility] LABCLIA [id number] [place] [address] [address] 2024 Ferritin [Mass/Vol] 122.0 ng/mL Normal 14.7-205.1 [facility] Comment on above: Order Comment: Speci men Type: BLOOD SPECIMENOrdering Facility: [facility] Address: [address] [place] [address] Performed By: #### 5 0190-8, 9, 2275-10, 8 ####[facility] LABCLIA [id number] [place] [address] [place] Folate SerPl-[facility]19 25 Folate [Mass/Vol] 6.6 ng/mL Normal >4.7 [facility] Comment on above: Order Comment: Speci men Type: BLOOD SPECIMENOrdering Facility: [facility] Address: [address] [place] [address] Performed By: #### 5 0190-8, 9, 2275-10, 8 ####[facility] LABCLIA [id number] [place] [address] [place] Iron and Iron binding capaci ty panelon 10-11-2024 Iron [Mass/Vol] 70 ug/dL Normal 41-186 [facility] Comment on above: Order Comment: Speci men Type: BLOOD SPECIMENOrdering Facility: [facility] Address: [address] [place] [address] Performed By: #### 5 0190-8, 9, 2275-10, 8 ####[facility] LABCLIA [id number] [place] [address] [place] Iron binding capacity [Mass/Vol] 351 ug/dL Normal 232-386 [facility] Comment on above: Order Comment: Speci men Type: BLOOD SPECIMENOrdering Facility: [facility] Address: [address] [place], [place] [address] Performed By: #### 5 0190-8, 2132-03, 2275-10, 2284-02 ####[facility] LABCLIA [id number] [address] [address] [place] Iron/TIBC [Molar ratio] 19.9 % Normal 15.0-57.0 [facility] Comment on above: Order Comment: Speci men Type: BLOOD SPECIMENOrdering Facility: [facility] Address: [address] [place] [address] Performed By: #### 5 0190-8, 2132-03, 2275-10, 2284-02 ####[facility] LABIA [id number] [place] [id number] [place] Vit B12 [facility] 025 Cobalamin (Vitamin B12) [Mass/Vol] 647 pg/mL Normal 232-1245 [facility] Comment on above: Order Comment: Speci men Type: BLOOD SPECIMENOrdering Facility: [facility] Address: [address] [place], [place] [address] Performed By: #### 5 0190-8, 2132-03, 2275-10, 2284-02 ####[facility] LABIA [id number] [place] [id number] [place] US Thyroid [address]andon [address] [place] [address] Ultrasound Report Signed Patient: ANDREI FISH MR#: [id number] : 1950 Acct:[id number] Age/Sex: 73 / F ADM Date: 09/17/24 Loc: US Attending Dr: Mar Mayo M.D. Ordering Physician: Mar Mayo M.D. Date of Service: 09/17/24 Procedure(s): US thyroid Accession Number(s): [id number] cc: Stephanie Dumont DIFFUSION FURNACE OPERATOR; Mar Mayo M.D. [place] [id number] Patient Name: ANDREI FISH MRN: [facility]:[id number] date: 1950 Sex: F Assigned Patient Location: US Current Patient Location: US Accession/Order Number: [id number] Exam Date: 09/17/2024 18:55 Report Date: 09/17/2024 19:07 At the request of: MAR MAYO MD Procedure: US thyroid Thyroid Ultrasound HISTORY: [...] Valentin Peralta M.D.09/17/2024 7:07 PM Dictation Location: [place] [address] Electronically authenticated by: [id number] Y Date: 09/17/2024 19:07 Dictated By: Valentin Peralta D.O. Signed By: 09/17/241909 DD/ 06 TD/TT: Title Clerk: [facility] Radiology, Radiologist, - 09/17/2024 [place] [address] Ultrasound Report Signed Patient: ANDREI FISH MR#: [id number] : 1950 Acct:[id number] Age/Sex: 73 / F ADM Date: 09/17/24 Loc: US Attending Dr: Mar Mayo M.D. Ordering Physician: Mar Mayo M.D. Date of Service: 09/17/24 Procedure(s): US thyroid Accession Number(s): [id number] cc: Stephanie Dumont NP; Mar Mayo M.D. [place] [address] Patient Name: ANDREI FISH MRN: [facility]:[id number] date: 1950 Sex: F Assigned Patient Location: US Current Patient Location: US Accession/Order Number: [id number] Exam Date: 09/17/2024 18:55 Report Date: 09/17/2024 19:07 At the request of: MAR MAYO MD Procedure: US thyroid Thyroid Ultrasound HISTORY: [...] Valentin Peralta M.D.09/17/2024 7:07 PM Dictation Location: [place] [address] Electronically authenticated by: [id number] Y Date: 09/17/2024 19:07 Dictated By: Valentin Peralta D.O. Signed By: 09/17/241909 DD/ 06 TD/TT: Title Clerk: [facility] Radiology Study observation (narrative) [facility] US Thyroid glandOrdered By: Radiologist Radiology on 09-17-2024 [facility] Work Phone: CBC W Auto Differential pane l (Bld)on 08-30-2024 Basophils (Bld) [#/Vol] 10*3/uL Normal <0.11 [facility] Comment on above: Order Comment: Speci men Type: BLOOD SPECIMENOrdering Facility: [facility] Address: [address] [place] [address] Performed By: #### 5 7021-8 ####[facility] LABCLIA [id number] [place] [address] Basophils/100 WBC (Bld) 0.4 % Normal [facility] Comment on above: Order Comment: Speci men Type: BLOOD SPECIMENOrdering Facility: [facility] Address: [address] [place] [address] Performed By: #### 5 7021-8 ####[facility] LABCLIA [id number] [place] [address] Differential cell count method Nom (Bld) Auto Normal [facility] Comment on above: Order Comment: Speci men Type: BLOOD SPECIMENOrdering Facility: [facility] Address: [address] [place] [address] Performed By: #### 5 7021-8 ####[facility] LABCLIA [id number] [place] [address] Eosinophils (Bld) [#/Vol] 0.04 10*3/uL Normal <0.46 [facility] Comment on above: Order Comment: Speci men Type: BLOOD SPECIMENOrdering Facility: [facility] Address: [address] [place] [address] Performed By: #### 5 7021-8 ####[facility] LABCLIA [id number] [place] [address] Eosinophils/100 WBC (Bld) 0.7 % Normal [facility] Comment on above: Order Comment: Speci men Type: BLOOD SPECIMENOrdering Facility: [facility] Address: [address] [place] [address] Performed By: #### 5 7021-8 ####[facility] LABCLIA [id number] [place] [address] Erythrocyte distribution width (RBC) [Ratio] 13.8 % Normal 11.5-15.0 [facility] Comment on above: Order Comment: Speci men Type: BLOOD SPECIMENOrdering Facility: [facility] Address: [address] [place] [address] Performed By: #### 5 7021-8 ####[facility] LABCLIA [id number] [place] [address] Hematocrit (Bld) [Volume fraction] 33.2 % Low 36.0-46.0 [facility] Comment on above: Order Comment: Speci men Type: BLOOD SPECIMENOrdering Facility: [facility] Address: [address] [place] [address] Performed By: #### 5 7021-8 ####[facility] LABCLIA [id number] [place] [address] Hemoglobin (Bld) [Mass/Vol] 10.4 g/dL Low 11.5-15.5 [facility] Comment on above: Order Comment: Speci men Type: BLOOD SPECIMENOrdering Facility: [facility] Address: [address] [place] [address] Performed By: #### 5 7021-8 ####[facility] LABCLIA [id number] [place] [address] Immature granulocytes (Bld) [#/Vol] 10*3/uL Normal <0.10 [facility] Comment on above: Order Comment: Speci men Type: BLOOD SPECIMENOrdering Facility: [facility] Address: [address] [place] [address] Performed By: #### 5 7021-8 ####[facility] LABCLIA [id number] [place] [address] Immature granulocytes/100 WBC (Bld) 0.4 % Normal [facility] Comment on above: Order Comment: Speci men Type: BLOOD SPECIMENOrdering Facility: [facility] Address: [address] [place] [address] Performed By: #### 5 7021-8 ####[facility] LABCLIA [id number] [place] [address] Lymphocytes (Bld) [#/Vol] 2.05 10*3/uL Normal 1.00-4.00 [facility] Comment on above: Order Comment: Speci men Type: BLOOD SPECIMENOrdering Facility: [facility] Address: [address] [place] [address] Performed By: #### 5 7021-8 ####[facility] LABCLIA [id number] [place] [address] Lymphocytes/100 WBC (Bld) 36.7 % Normal [facility] Comment on above: Order Comment: Speci men Type: BLOOD SPECIMENOrdering Facility: [facility] Address: [address] [place] [address] Performed By: #### 5 7021-8 ####[facility] LABCLIA [id number] [place] [address] MCH (RBC) [Entitic mass] 31.6 pg Normal 26.0-34.0 [facility] Comment on above: Order Comment: Speci men Type: BLOOD SPECIMENOrdering Facility: [facility] Address: [address] [place] [address] Performed By: #### 5 7021-8 ####[facility] LABCLIA [id number] [place] [address] MCHC (RBC) [Mass/Vol] 31.3 g/dL Normal 30.5-36.0 [facility] Comment on above: Order Comment: Speci men Type: BLOOD SPECIMENOrdering Facility: [facility] Address: [address] [place] [address] Performed By: #### 5 7021-8 ####[facility] LABCLIA [id number] [place] [address] MCV (RBC) [Entitic vol] 100.9 fL High 80.0-100.0 [facility] Comment on above: Order Comment: Speci men Type: BLOOD SPECIMENOrdering Facility: [facility] Address: [address] [place] [address] Performed By: #### 5 7021-8 ####[facility] LABCLIA [id number] [place] [address] Monocytes (Bld) [#/Vol] 0.26 10*3/uL Normal <0.87 [facility] Comment on above: Order Comment: Speci men Type: BLOOD SPECIMENOrdering Facility: [facility] Address: [address] [place] [address] Performed By: #### 5 7021-8 ####[facility] LABIA [id number] [place] [address] Monocytes/100 WBC (Bld) 4.7 % Normal [facility] Comment on above: Order Comment: Speci men Type: BLOOD SPECIMENOrdering Facility: [facility] Address: [address] [place] [address] Performed By: #### 5 7021-8 ####[facility] LABCLIA [id number] [place] [address] Neutrophils (Bld) [#/Vol] 3.20 10*3/uL Normal 1.45-7.50 [facility] Comment on above: Order Comment: Speci men Type: BLOOD SPECIMENOrdering Facility: [facility] Address: [address] [place] [address] Performed By: #### 5 7021-8 ####[facility] LABIA [id number] [place] [address] Neutrophils/100 WBC (Bld) 57.1 % Normal [facility] Comment on above: Order Comment: Speci men Type: BLOOD SPECIMENOrdering Facility: [facility] Address: [address] [place] [address] Performed By: #### 5 7021-8 ####[facility] LABCLIA [id number] [place] [address] Nucleated RBC (Bld) [#/Vol] 10*3/uL Normal <0.01 [facility] Comment on above: Order Comment: Speci men Type: BLOOD SPECIMENOrdering Facility: [facility] Address: [address] [place] [address] Performed By: #### 5 7021-8 ####[facility] LABCLIA [id number] [place] [address] Nucleated RBC/100 WBC (Bld) [Ratio] 0.0 /100 WBC Normal [facility] Comment on above: Order Comment: Speci men Type: BLOOD SPECIMENOrdering Facility: [facility] Address: [address] [place] [address] Performed By: #### 5 7021-8 ####[facility] LABCLIA [id number] [place] [address] Platelet mean volume (Bld) [Entitic vol] 9.3 fL Normal 9.0-12.7 [facility] Comment on above: Order Comment: Speci men Type: BLOOD SPECIMENOrdering Facility: [facility] Address: [address] [place] [address] Performed By: #### 5 7021-8 ####[facility] LABCLIA [id number] [place] [address] Platelets (Bld) [#/Vol] 173 10*3/uL Normal 150-400 [facility] Comment on above: Order Comment: Speci men Type: BLOOD SPECIMENOrdering Facility: [facility] Address: [address] [place] [address] Performed By: #### 5 7021-8 ####[facility] LABCLIA [id number] [place] [address] RBC (Bld) [#/Vol] 3.29 10*6/uL Low 3.90-5.20 [facility] Comment on above: Order Comment: Speci men Type: BLOOD SPECIMENOrdering Facility: [facility] Address: [address] [place] [address] Performed By: #### 5 7021-8 ####[facility] LABCLIA [id number] [place] [address] WBC (Bld) [#/Vol] 5.59 10*3/uL Normal 3.70-11.00 [facility] Comment on above: Order Comment: Speci men Type: BLOOD SPECIMENOrdering Facility: [facility] Address: [address] [place] [address] Performed By: #### 5 7021-8 ####[facility] LABCLIA [id number] [place] [address] CNNURSEon 08-30-2024 CNNURSE Normal [facility] CNOVSPon 08-30-2024 CNOVSP Normal [facility] Comprehensive metabolic 2000 panelon 08-30-2024 Albumin [Mass/Vol] 3.8 g/dL Low 3.9-4.9 [facility] Comment on above: Order Comment: Speci men Type: BLOOD SPECIMENOrdering Facility: [facility] Address: [address] [place] [address] Result Comment: Flip ected result: Previously reported as 3.7 g/dL on 08/30/2024 at 10:57 AM EST. Performed By: #### 2 4323-8 ####[facility] LABCLIA [id number] [facility] [id number] [address] [place] ALP [Catalytic activity/Vol] 84 U/L Normal 34-123 [facility] Comment on above: Order Comment: Speci men Type: BLOOD SPECIMENOrdering Facility: [facility] Address: [address] [place] [address] Result Comment: Flip ected result: Previously reported as 80 U/L on 08/30/2024 at 10:57 AM EST. Performed By: #### 2 4323-8 ####[facility] LABIA [id number] [place] [address] [place] ALT [Catalytic activity/Vol] 15 U/L Normal 7-38 [facility] Comment on above: Order Comment: Speci men Type: BLOOD SPECIMENOrdering Facility: [facility] Address: [address] [place] [address] Result Comment: Flip ected result: Previously reported as 11 U/L on 08/30/2024 at 10:57 AM EST. Performed By: #### 2 4323-8 ####[facility] [id number] [place] [address] [place] Anion gap [Moles/Vol] 9 mmol/L Normal 8-15 [facility] Comment on above: Order Comment: Speci men Type: BLOOD SPECIMENOrdering Facility: [facility] Address: [address] [place] [address] Performed By: #### 2 4323-8 ####[facility] [id number] [place] [address] [place] AST [Catalytic activity/Vol] 24 U/L Normal 13-35 [facility] Comment on above: Order Comment: Speci men Type: BLOOD SPECIMENOrdering Facility: [facility] Address: [address] [place] [address] Result Comment: Flip ected result: Previously reported as 18 U/L on 08/30/2024 at 10:57 AM EST. Performed By: #### 2 4323-8 ####[facility] LABIA [id number] [place] [address] [place] Bilirubin [Mass/Vol] 0.5 mg/dL Normal 0.2-1.3 [facility] Comment on above: Order Comment: Speci men Type: BLOOD SPECIMENOrdering Facility: [facility] Address: [address] [place] [address] Result Comment: Flip ected result: Previously reported as 0.4 mg/dL on 08/30/2024 at 10:57 AM EST. Performed By: #### 2 4323-8 ####[facility] LABCLIA [id number] [place] [address] [place] Calcium [Mass/Vol] 9.4 mg/dL Normal 8.5-10.2 [facility] Comment on above: Order Comment: Speci men Type: BLOOD SPECIMENOrdering Facility: [facility] Address: [address] [place] [address] Result Comment: Flip ected result: Previously reported as 9.1 mg/dL on 08/30/2024 at 10:57 AM EST. Performed By: #### 2 4323-8 ####[facility] LABCLIA [id number] [place] [address] [place] Chloride [Moles/Vol] 105 mmol/L Normal 98-107 [facility] Comment on above: Order Comment: Speci men Type: BLOOD SPECIMENOrdering Facility: [facility] Address: [address] [place] [address] Performed By: #### 2 4323-8 ####[facility] LABCLIA [id number] [place] [address] [place] CO2 [Moles/Vol] 25 mmol/L Normal 22-30 [facility] Comment on above: Order Comment: Speci men Type: BLOOD SPECIMENOrdering Facility: [facility] Address: [address] [place] [address] Result Comment: Flip ected result: Previously reported as 27 mmol/L on 08/30/2024 at 10:57 AM EST. Performed By: #### 2 4323-8 ####[facility] LABCLIA [id number] [place] [address] [place] Creatinine [Mass/Vol] 1.38 mg/dL High 0.58-0.96 [facility] Comment on above: Order Comment: Speci men Type: BLOOD SPECIMENOrdering Facility: [facility] Address: [address] [place] [address] Result Comment: Flip ected result: Previously reported as 1.31 mg/dL on 08/30/2024 at 10:57 AM EST. Performed By: #### 2 4323-8 ####[facility] LABCLIA [id number] [place] [address] [place] Creatinine and Glomerular filtration rate.predicted panel (S/P/Bld) 40 mL/min/1.73m??? Low >=60 [facility] Comment on above: Order Comment: Fabricio tapia Type: BLOOD SPECIMENOrdering Facility: [facility] Address: [address] [place] [address] Result Comment: Miryam mated Glomerular Filtration Rate (eGFR) is calculated using the 2020 CKD-EPI creatinine equation. This equation utilizes serum creatinine, sex, and age as parameters. The creatinine assay has traceable calibration to isotope dilution-mass spectrometry. Refer to KDIGO guidelines for clinical interpretation. In patients with unstable renal function, e.g. those with acute kidney injury, the eGFR may not accurately reflect actual GFR.Corrected result: Previously reported as 43 mL/min/1.73m??? on 08/30/2024 at 10:57 AM EST. Performed By: #### 2 4323-8 ####[facility] LABCLIA [id number] [place] [id number] [place] Glucose [Mass/Vol] 102 mg/dL High 74-99 [facility] Comment on above: Order Comment: Fabricio tapia Type: BLOOD SPECIMENOrdering Facility: [facility] Address: [address] [place] [address] Result Comment: The [place] Diabetes Association (ADA) provides guidance for cutoff [...] Standards of Medical Care in Diabetes 2016, [place] [employer]. Diabetes Care. 2016.39(Suppl 1). Performed By: #### 2 4323-8 ####[facility] LABCLIA [id number] [place] [address] [place] Potassium [Moles/Vol] 4.9 mmol/L Normal 3.7-5.1 [facility] Comment on above: Order Comment: Speci men Type: BLOOD SPECIMENOrdering Facility: [facility] Address: [address] [place] [address] Performed By: #### 2 4323-8 ####[facility] LABCLIA [id number] [place] [address] [place] Protein [Mass/Vol] 7.5 g/dL Normal 6.3-8.0 [facility] Comment on above: Order Comment: Speci willie Type: BLOOD SPECIMENOrdering Facility: [facility] Address: [address] [place] [address] Result Comment: Flip ected result: Previously reported as 7.3 g/dL on 08/30/2024 at 10:57 AM EST. Performed By: #### 2 4323-8 ####[facility] LABCLIA [id number] [place] [address] [place] Sodium [Moles/Vol] 139 mmol/L Normal 136-144 [facility] Comment on above: Order Comment: Virgilioi willie Type: BLOOD SPECIMENOrdering Facility: [facility] Address: [address] [place] [address] Performed By: #### 2 4323-8 ####[facility] LABCLIA [id number] [place] [address] [place] Urea nitrogen [Mass/Vol] 29 mg/dL High 7-21 [facility] Comment on above: Order Comment: Speci men Type: BLOOD SPECIMENOrdering Facility: [facility] Address: [address] [place] [address] Result Comment: Flip ected result: Previously reported as 30 mg/dL on 08/30/2024 at 10:57 AM EST. Performed By: #### 2 4323-8 ####[facility] LABCLIA [id number] [place] [address] [place] Ferritin SerPl-mCncon 2024 Ferritin [Mass/Vol] 115.0 ng/mL Normal 14.7-205.1 [facility] Comment on above: Order Comment: Speci men Type: BLOOD SPECIMENOrdering Facility: [facility] Address: [address] [place] [address] Performed By: #### 2 132-9, 2276-4, 2284-8, 83296-7 ####[facility] LABCLIA [id number] [place] [address] [place] Folate SerPl-mCncon 08-30-19 25 Folate [Mass/Vol] 6.1 ng/mL Normal >4.7 [facility] Comment on above: Order Comment: Speci men Type: BLOOD SPECIMENOrdering Facility: [facility] Address: [address] [place] [address] Performed By: #### 2 132-9, 2276-4, 2284-8, 77739-7 ####[facility] LABIA [id number] [place] [id number] [place] Iron and Iron binding capaci ty panelon 08-30-2024 Iron [Mass/Vol] 55 ug/dL Normal 41-186 [facility] Comment on above: Order Comment: Speci men Type: BLOOD SPECIMENOrdering Facility: [facility] Address: [address] [place] [address] Performed By: #### 2 132-9, 2276-4, 2284-8, 99685-2 ####[facility] LABCLIA [id number] [address] [address] [place] Iron binding capacity [Mass/Vol] 307 ug/dL Normal 232-386 [facility] Comment on above: Order Comment: Speci men Type: BLOOD SPECIMENOrdering Facility: [facility] Address: [address] [place] [address] Performed By: #### 2 132-9, 2276-4, 2284-8, 76374-2 ####[facility] LABCLIA [id number] [address] [address] [place] Iron/TIBC [Molar ratio] 17.9 % Normal 15.0-57.0 [facility] Comment on above: Order Comment: Speci men Type: BLOOD SPECIMENOrdering Facility: [facility] Address: [address] [place] [address] Performed By: #### 2 132-9, 6-4, 4-8, 36031-0 ####[facility] LABIA [id number] [place] [id number] [place] Vit B12 [facility] 025 Cobalamin (Vitamin B12) [Mass/Vol] 680 pg/mL Normal 232-1245 [facility] Comment on above: Order Comment: Speci men Type: BLOOD SPECIMENOrdering Facility: [facility] Address: [address] [place], [place] [address] Performed By: #### 2 132-9, 2276-4, 2284-8, 06772-7 ####[facility] LABCLIA [id number] [address] [address] [place] COMPLETE BLOOD COUNTon 08-12 Erythrocyte distribution width (RBC) [Ratio] 14.4 % Normal 11.5-15.0 [facility] Comment on above: Performed By: #### RED Delgado #### [facility] ([id number]) [address], [address] [place] [address] Hematocrit (Bld) [Volume fraction] 31.6 % Low 35-47 [facility] Comment on above: Performed By: #### RED Delgado #### [facility] ([id number]) [address], [address] [place] [address] Hemoglobin (Bld) [Mass/Vol] 10.6 g/dL Low 11.7-15.5 [facility] Comment on above: Performed By: #### RED Delgado #### [facility] ([id number]) [address], [address] [place] [address] MCH (RBC) [Entitic mass] 33.0 pg Normal 27-34 [facility] Comment on above: Performed By: #### RED Delgado #### [facility] ([id number]) [address], [address] [place] [address] MCHC (RBC) [Mass/Vol] 33.5 g/dL Normal 32-36 [facility] Comment on above: Performed By: #### Lara Sheikh, RED #### [facility] ([id number]) [address], [address] [place] [address] MCV (RBC) [Entitic vol] 99 fL Normal 80-100 [facility] Comment on above: Performed By: #### Lara Sheikh, RDE #### [facility] ([id number]) [address], [address] [place] [address] Platelet mean volume (Bld) [Entitic vol] 7.9 fL Normal 7-12 [facility] Comment on above: Performed By: #### Lara Sheikh, RED #### [facility] ([id number]) [address], [address] [place] [address] Platelets (Bld) [#/Vol] 152 10*3/uL Normal 150-450 [facility] Comment on above: Performed By: #### RED Delgado #### [facility] ([id number]) [address] [place] [address] RBC COUNT 3.21 X10E12/L Low 3.80-5.20 [facility] Comment on above: Performed By: #### Lara Sheikh VIRGINIAPHYLLIS #### [facility] ([id number]) [address] [place] [address] WBC (Bld) [#/Vol] 3.8 10*3/uL Low 4.0-11.0 [facility] Comment on above: Performed By: #### RED Delgado #### [facility] ([id number]) [address], [address] [place] [address] MAGNESIUMon 08-12-2024 Magnesium [Mass/Vol] 2.4 mg/dL Normal 1.8-2.6 [facility] Comment on above: Performed By: #### RED Delgado #### [facility] ([id number]) [address], [address] [place] [address] PROTEIN CREAT RATIOon 2024 RANDOM URINE PROTEIN 250 mg/L High <120 [facility] Comment on above: Performed By: #### RED Delgado #### [facility] ([id number]) [address], [address] [place] [address] U/PRO/FOOD SAFETY SPECIALIST RATIO CALC 0.17 Normal <0.2 [facility] Comment on above: Result Comment: Neph rotic Syndrome is associated with ratios >3.5 Performed By: #### RED Delgado #### [facility] ([id number]) [address], [address] [place] [address] URINE CREATININE,RDM 146.97 mg/dL Normal [facility] Comment on above: Performed By: #### RED Delgado #### [facility] ([id number]) [address], [address] [place] [address] Parathyrin.intact [Mass/Vol] on 08-12-2024 PTH INTACT 61 pg/mL Normal 12-88 [facility] Comment on above: Performed By: #### RED Delgado #### [facility] ([id number]) [address], [address] [place] [address] RENAL PANELon 08-12-2024 Albumin [Mass/Vol] 3.7 g/dL Normal 3.2-5.3 [facility] Comment on above: Performed By: #### RED Delgado #### [facility] ([id number]) [address], [address] [place] [address] Anion gap [Moles/Vol] 6 mmol/L Normal 5-15 [facility] Comment on above: Performed By: #### Lara Sheikh, RED #### [facility] ([id number]) [address], [address] [place] [address] Calcium [Mass/Vol] 9.3 mg/dL Normal 8.5-10.5 [facility] Comment on above: Performed By: #### Lara Sheikh, RED #### [facility] ([id number]) [address], [address] [place] [address] Chloride [Moles/Vol] 111 mmol/L High 98-109 [facility] Comment on above: Performed By: #### Lara Sheikh, RED #### [facility] ([id number]) [address], [address] [place] [address] CO2 [Moles/Vol] 21 mmol/L Low 22-32 [facility] Comment on above: Performed By: #### Lara Sheikh, RED #### [facility] ([id number]) [address], [address] [place] [address] Creatinine [Mass/Vol] 1.40 mg/dL High 0.40-1.00 [facility] Comment on above: Result Comment: METH OD TRACEABLE TO IDMS STANDARD Performed By: #### RED Delgado #### [facility] ([id number]) [address], [address] [place] [address] GFR/1.73 sq M.predicted among non-blacks MDRD (S/P/Bld) [Vol rate/Area] 40 mL/min/{1.73_m2} Low >59 [facility] Comment on above: Result Comment: Reported eGFR is based on the CKD-EPI 2020 equation that does not use a race coefficient. Performed By: #### RED Delgado #### [facility] ([id number]) [address] [place] [address] Glucose [Mass/Vol] 100 mg/dL High 65-99 [facility] Comment on above: Performed By: #### RED Delgado #### [facility] ([id number]) [address] [place] [address] Phosphate [Mass/Vol] 3.1 mg/dL Normal 2.4-4.9 [facility] Comment on above: Performed By: #### RED Delgado #### [facility] ([id number]) [address], [address] [place] [address] Potassium [Moles/Vol] 4.9 mmol/L Normal 3.5-5.0 [facility] Comment on above: Performed By: #### RED Delgado #### [facility] ([id number]) [address] [place] [address] Sodium [Moles/Vol] 138 mmol/L Normal 134-146 [facility] Comment on above: Performed By: #### RED Delgado #### [facility] ([id number]) [address], [address] [place] [address] Urea nitrogen [Mass/Vol] 38 mg/dL High 5-27 [facility] Comment on above: Performed By: #### Lara Sheikh, RED #### [facility] ([id number]) [address] [place] [address] URIC ACIDon 08-12-2024 Urate [Mass/Vol] 7.3 mg/dL High 2.6-7.2 [facility] Comment on above: Performed By: #### Lara Sheikh, RED #### [facility] ([id number]) [address] [place] [address] URINALYSISon 08-12-2024 Bilirubin Ql (U) Negative Normal NEG [facility] Comment on above: Performed By: #### Lara Sheikh, RED #### [facility] ([id number]) [address] [place] [address] BLOOD/HGB Negative Normal NEG [facility] Comment on above: Performed By: #### Lara Sheikh, RED #### [facility] ([id number]) [address], [address] [place] [address] Color (U) YELLOW Normal YELLOW [facility] Comment on above: Performed By: #### Lara Sheikh, RED #### [facility] ([id number]) [address] [place] [address] Glucose Ql (U) Negative Normal NEG [facility] Comment on above: Performed By: #### Lara Sheikh, RED #### [facility] ([id number]) [address] [place] [address] Ketones Ql (U) Negative Normal NEG [facility] Comment on above: Performed By: #### Lara Sheikh, RED #### [facility] ([id number]) [address] [place] [address] Leukocyte esterase Test strip Ql (U) Small Abnormal NEG [facility] Comment on above: Performed By: #### Lara Sheikh, MALPHYLLIS #### [facility] ([id number]) [address] [place] [address] Nitrite Ql (U) Negative Normal NEG [facility] Comment on above: Performed By: #### Lara Sheikh, MALPHYLLIS #### [facility] ([id number]) [address] [place] [address] pH (U) 6.0 [pH] Normal 5.0-8.5 [facility] Comment on above: Performed By: #### Lara Sheikh, MALPHYLLIS #### [facility] ([id number]) [address] [place] [address] Protein Ql (U) Trace Abnormal NEG [facility] Comment on above: Performed By: #### Lara Sheikh, MALPHYLLIS #### [facility] ([id number]) [address], [address] [place] [address] R.B.CELLS 1 /hpf Normal 0-5 [facility] Comment on above: Performed By: #### Lara Sheikh, MALPHYLLIS #### [facility] ([id number]) [address], [address] [place] [address] Specific gravity (U) [Rel density] 1.015 Normal 1.003-1.035 [facility] Comment on above: Performed By: #### Lara Sheikh, MALBU #### [facility] ([id number]) [address], [address] [place], [place] [address] SQUAMOUS EPITHELIUM 15 /hpf High 0-5 [facility] Comment on above: Performed By: #### Lara Sheikh, MALPHYLLIS #### [facility] ([id number]) [address], [address] [place] [address] TRANSITIONAL EPITH 1 /hpf High 0 [facility] Comment on above: Performed By: #### Lara Sheikh, RED #### [facility] ([id number]) [address], [address] [place] [address] TURBIDITY HAZY Abnormal CLEAR [facility] Comment on above: Performed By: #### U Kori, RED #### [facility] ([id number]) [address], [address] [place] [address] Urobilinogen Qn (U) 0.2 {Hao'U}/dL Normal <1.1 [facility] Comment on above: Performed By: #### Lara Sheikh, RED #### [facility] ([id number]) [address], [address] [place] [address] W.B.CELLS 2 /hpf Normal 0-5 [facility] Comment on above: Performed By: #### Lara Sheikh, RED #### [facility] ([id number]) [address], [address] [place] [address] Vitamin D+Metabolites [Mass/ Vol]on 08-12-2024 VITAMIN D 25 HYD TOT 19.5 ng/mL Low 30-100 [facility] Comment on above: Result Comment: Vitamin D status 25 [place] Vitamin D Deficiency <20 ng/mL Insufficiency 20-29 ng/mL Sufficiency 30-100 ng/mL Toxicity >100 ng/mL NOTE: A pediatric reference range has not been established by the rd scientist of this kit. The [place] [employer] recommends a Vitamin D level of = or >20ng/mL in infants and children. Performed By: #### U Kori, RED #### [facility] ([id number]) [address], [address] [place] [address] CNPNon 07-23-2024 CNPN Normal [facility] MR LOWER LEG LT W WO CONTon 07-19-2024 MR LOWER LEG LT W WO CONT MR LOWER LEG LT W WO CONT Clinical history: Leg weakness. Pain. MRI left lower leg with and without contrast: 07/18/2024 PROCEDURE: Multiplanar multisequence imaging of the lower leg was performed before and after 16.7 mL of ProHance intravenously. Correlation: Tibia and fibular radiographs from 03/28/2012. FINDINGS: Present lobular area of decreased signal on all sequences within the proximal tibia measuring 4.3 x 2.4 x 1.6 cm. This is partially intraosseous with extension to the lateral cortex and into the soft tissues at the posterior tibialis muscle belly. Peripherally there is increased signal on fluid sensitive sequences with postcontrast enhancement. A second area of intraosseous signal irregularity is present within the proximal tibial shaft measuring 3.0 x 2.9 x 1.6 cm. There is no surrounding edema or enhancement. Mid shaft tibial deformity is compatible with healed fracture with some varus angulation and anterior bowing. Bone marrow signal within the fibula appears normal with a proximal fibular shaft deformity compatible with healed fracture. There is fusion of the proximal tibiofibular joint. No abnormal postcontrast enhancement is otherwise present. There is soft tissue irregularity within the pretibial region. IMPRESSION: Healed tibial and fibular fractures with residual deformity. Lobular areas of suspected cement within the proximal tibia and extending into the soft tissues of the proximal calf laterally. The some enhancement around this material within the proximal aspect of the posterior tibialis muscle belly but no abnormal fluid collection or myotendinous disruption is evident. No acute osseous signal change. No abnormal postcontrast enhancement. Finalized by Fidel Samaniego MD on 07/19/2024 6:30 AM Normal [facility] MR KNEE LT W WO CONTon 07-18 MR KNEE LT W WO CONT MR KNEE LT W WO CON T MR KNEE LT W WO CONT HISTORY: Pain in left lower leg. COMPARISON: ? Left knee radiographs 03/28/2012. PROCEDURE: ?Multisequence, multiplanar MR images of the knee were obtained. Images were obtained with without contrast. Patient received 17 mL of ProHance. No adverse reaction is reported FINDINGS: MENISCI Medial meniscus: Intact. Lateral meniscus: Intact. LIGAMENTS Cruciate ligaments: The ACL and PCL are intact. Medial collateral ligament: Superficial and deep components intact. No periligamentous edema. Lateral collateral ligament: Intact. EXTENSOR MECHANISM Extensor mechanism: No distal quadriceps tendinosis. Mild lateral patellar tilt without vivian subluxation. Retinacula are intact. FLUID Fluid: No joint effusion. No Tracy's cyst. Mild nonspecific soft tissue edema overlying the patella and infrapatellar fat pad. Soft tissues: No pathologic postcontrast enhancement identified. OSSEOUS and ARTICULAR STRUCTURES Bones: No acute fracture. Partially imaged postoperative appearance of the lateral tibial diaphysis. Marrow signal appears very fatty-replaced. This may indicate underlying osteoporosis. Consider DEXA scanning if felt indicated. Patellofemoral compartment: Overall moderate articular chondral thinning/irregularity most pronounced of the medial patellar facet. No full-thickness chondral defect. Medial compartment: Mild hyaline cartilage disease. No focal chondral defect. Likely degenerative edema within the medial tibial plateau. Lateral compartment: Mild-moderate hyaline cartilage disease. No focal chondral defect. Likely degenerative edema within the lateral tibial plateau. IMPRESSION: * No acute abnormality identified. No meniscal or ligamentous injury. * Degenerative change detailed above. Approved by Resident: Sandeep Mantilla MD on 07/18/2024 1:19 PM I, Mary Ellen Burton MD have personally reviewed the image(s) and agree with and/or edited the report Finalized by Mary Ellen Burton MD on 07/18/2024 3:48 PM Normal [address] 07-15-2024 36 [address] office chatman d and asked for both MRI orders to be sent over to the fax number [phone]. Ep Technologist faxed both papers over. Normal [facility] CBC W Auto Differential pane l (Bld)on 07-11-2024 Basophils (Bld) [#/Vol] 10*3/uL Normal <0.11 [facility] Comment on above: Order Comment: Speci men Type: BLOOD SPECIMENOrdering Facility: [facility] Address: [address] [place] [address] Performed By: #### 5 7021-8 ####[facility] LABCLIA [id number] [place] [address] Basophils/100 WBC (Bld) 0.5 % Normal [facility] Comment on above: Order Comment: Speci men Type: BLOOD SPECIMENOrdering Facility: [facility] Address: [address] [place] [address] Performed By: #### 5 7021-8 ####[facility] LABCLIA [id number] [place] [address] Differential cell count method Nom (Bld) Auto Normal [facility] Comment on above: Order Comment: Speci men Type: BLOOD SPECIMENOrdering Facility: [facility] Address: [address] [place] [address] Performed By: #### 5 7021-8 ####[facility] LABCLIA [id number] [place] [address] Eosinophils (Bld) [#/Vol] 10*3/uL Normal <0.46 [facility] Comment on above: Order Comment: Speci men Type: BLOOD SPECIMENOrdering Facility: [facility] Address: [address] [place] [address] Performed By: #### 5 7021-8 ####[facility] LABCLIA [id number] [place] [address] Eosinophils/100 WBC (Bld) 0.5 % Normal [facility] Comment on above: Order Comment: Speci men Type: BLOOD SPECIMENOrdering Facility: [facility] Address: [address] [place] [address] Performed By: #### 5 7021-8 ####[facility] LABCLIA [id number] [place] [address] Erythrocyte distribution width (RBC) [Ratio] 13.9 % Normal 11.5-15.0 [facility] Comment on above: Order Comment: Speci men Type: BLOOD SPECIMENOrdering Facility: [facility] Address: [address] [place] [address] Performed By: #### 5 7021-8 ####[facility] LABCLIA [id number] [place] [address] Hematocrit (Bld) [Volume fraction] 34.4 % Low 36.0-46.0 [facility] Comment on above: Order Comment: Speci men Type: BLOOD SPECIMENOrdering Facility: [facility] Address: [address] [place] [address] Performed By: #### 5 7021-8 ####[facility] LABCLIA [id number] [place] [address] Hemoglobin (Bld) [Mass/Vol] 10.9 g/dL Low 11.5-15.5 [facility] Comment on above: Order Comment: Speci men Type: BLOOD SPECIMENOrdering Facility: [facility] Address: [address] [place] [address] Performed By: #### 5 7021-8 ####[facility] LABIA [id number] [place] [address] Immature granulocytes (Bld) [#/Vol] 10*3/uL Normal <0.10 [facility] Comment on above: Order Comment: Speci men Type: BLOOD SPECIMENOrdering Facility: [facility] Address: [address] [place] [address] Performed By: #### 5 7021-8 ####[facility] LABCLIA [id number] [place] [address] Immature granulocytes/100 WBC (Bld) 0.2 % Normal [facility] Comment on above: Order Comment: Speci men Type: BLOOD SPECIMENOrdering Facility: [facility] Address: [address] [place] [address] Performed By: #### 5 7021-8 ####[facility] LABIA [id number] [place] [address] Lymphocytes (Bld) [#/Vol] 1.56 10*3/uL Normal 1.00-4.00 [facility] Comment on above: Order Comment: Speci men Type: BLOOD SPECIMENOrdering Facility: [facility] Address: [address] [place] [address] Performed By: #### 5 7021-8 ####[facility] LABCLIA [id number] [place] [address] Lymphocytes/100 WBC (Bld) 36.2 % Normal [facility] Comment on above: Order Comment: Speci men Type: BLOOD SPECIMENOrdering Facility: [facility] Address: [address] [place] [address] Performed By: #### 5 7021-8 ####[facility] LABCLIA [id number] [place] [address] MCH (RBC) [Entitic mass] 31.7 pg Normal 26.0-34.0 [facility] Comment on above: Order Comment: Speci men Type: BLOOD SPECIMENOrdering Facility: [facility] Address: [address] [place] [address] Performed By: #### 5 7021-8 ####[facility] LABCLIA [id number] [place] [address] MCHC (RBC) [Mass/Vol] 31.7 g/dL Normal 30.5-36.0 [facility] Comment on above: Order Comment: Speci men Type: BLOOD SPECIMENOrdering Facility: [facility] Address: [address] [place] [address] Performed By: #### 5 7021-8 ####[facility] LABCLIA [id number] [place] [address] MCV (RBC) [Entitic vol] 100.0 fL Normal 80.0-100.0 [facility] Comment on above: Order Comment: Speci men Type: BLOOD SPECIMENOrdering Facility: [facility] Address: [address] [place] [address] Performed By: #### 5 7021-8 ####[facility] LABCLIA [id number] [place] [address] Monocytes (Bld) [#/Vol] 0.18 10*3/uL Normal <0.87 [facility] Comment on above: Order Comment: Speci men Type: BLOOD SPECIMENOrdering Facility: [facility] Address: [address] [place] [address] Performed By: #### 5 7021-8 ####[facility] LABCLIA [id number] [place] [address] Monocytes/100 WBC (Bld) 4.2 % Normal [facility] Comment on above: Order Comment: Speci men Type: BLOOD SPECIMENOrdering Facility: [facility] Address: [address] [place] [address] Performed By: #### 5 7021-8 ####[facility] LABCLIA [id number] [place] [address] Neutrophils (Bld) [#/Vol] 2.52 10*3/uL Normal 1.45-7.50 [facility] Comment on above: Order Comment: Speci men Type: BLOOD SPECIMENOrdering Facility: [facility] Address: [address] [place] [address] Performed By: #### 5 7021-8 ####[facility] LABCLIA [id number] [place] [address] Neutrophils/100 WBC (Bld) 58.4 % Normal [facility] Comment on above: Order Comment: Speci men Type: BLOOD SPECIMENOrdering Facility: [facility] Address: [address] [place] [address] Performed By: #### 5 7021-8 ####[facility] LABCLIA [id number] [place] [address] Nucleated RBC (Bld) [#/Vol] 10*3/uL Normal <0.01 [facility] Comment on above: Order Comment: Speci men Type: BLOOD SPECIMENOrdering Facility: [facility] Address: [address] [place] [address] Performed By: #### 5 7021-8 ####[facility] LABCLIA [id number] [place] [address] Nucleated RBC/100 WBC (Bld) [Ratio] 0.0 /100 WBC Normal [facility] Comment on above: Order Comment: Speci men Type: BLOOD SPECIMENOrdering Facility: [facility] Address: [address] [place] [address] Performed By: #### 5 7021-8 ####[facility] LABCLIA [id number] [place] [address] Platelet mean volume (Bld) [Entitic vol] 9.1 fL Normal 9.0-12.7 [facility] Comment on above: Order Comment: Speci men Type: BLOOD SPECIMENOrdering Facility: [facility] Address: [address] [place] [address] Performed By: #### 5 7021-8 ####[facility] LABCLIA [id number] [place] [address] Platelets (Bld) [#/Vol] 139 10*3/uL Low 150-400 [facility] Comment on above: Order Comment: Speci men Type: BLOOD SPECIMENOrdering Facility: [facility] Address: [address] [place] [address] Performed By: #### 5 7021-8 ####[facility] LABCLIA [id number] [place] [address] RBC (Bld) [#/Vol] 3.44 10*6/uL Low 3.90-5.20 [facility] Comment on above: Order Comment: Speci men Type: BLOOD SPECIMENOrdering Facility: [facility] Address: [address] [place] [address] Performed By: #### 5 7021-8 ####[facility] LABCLIA [id number] [place] [address] WBC (Bld) [#/Vol] 4.31 10*3/uL Normal 3.70-11.00 [facility] Comment on above: Order Comment: Speci men Type: BLOOD SPECIMENOrdering Facility: [facility] Address: [address] [place] [address] Performed By: #### 5 7021-8 ####[facility] LABCLIA [id number] [place] [address] CNNURSEon 07-11-2024 CNNURSE Normal [facility] CNOVSPon 07-11-2024 CNOVSP Normal [facility] Comprehensive metabolic 2000 panelon 07-11-2024 Albumin [Mass/Vol] 3.8 g/dL Low 3.9-4.9 [facility] Comment on above: Order Comment: Speci men Type: BLOOD SPECIMENOrdering Facility: [facility] Address: [address] [place] [address] Performed By: #### 2 4323-8 ####[facility] LABCLIA [id number] [place] [address] ALP [Catalytic activity/Vol] 68 U/L Normal 34-123 [facility] Comment on above: Order Comment: Speci men Type: BLOOD SPECIMENOrdering Facility: [facility] Address: [address] [place] [address] Performed By: #### 2 4323-8 ####[facility] LABCLIA [id number] [place] [address] ALT [Catalytic activity/Vol] 11 U/L Normal 7-38 [facility] Comment on above: Order Comment: Speci men Type: BLOOD SPECIMENOrdering Facility: [facility] Address: [address] [place] [address] Performed By: #### 2 4323-8 ####[facility] LABCLIA [id number] [place] [address] Anion gap [Moles/Vol] 7 mmol/L Low 8-15 [facility] Comment on above: Order Comment: Speci men Type: BLOOD SPECIMENOrdering Facility: [facility] Address: [address] [place] [address] Performed By: #### 2 4323-8 ####[facility] LABCLIA [id number] [place] [address] AST [Catalytic activity/Vol] 18 U/L Normal 13-35 [facility] Comment on above: Order Comment: Speci men Type: BLOOD SPECIMENOrdering Facility: [facility] Address: [address] [place] [address] Performed By: #### 2 4323-8 ####[facility] LABCLIA [id number] [place] [address] Bilirubin [Mass/Vol] 0.4 mg/dL Normal 0.2-1.3 [facility] Comment on above: Order Comment: Speci men Type: BLOOD SPECIMENOrdering Facility: [facility] Address: [address] [place] [address] Performed By: #### 2 4323-8 ####[facility] LABCLIA [id number] [place] [address] Calcium [Mass/Vol] 9.8 mg/dL Normal 8.5-10.2 [facility] Comment on above: Order Comment: Speci men Type: BLOOD SPECIMENOrdering Facility: [facility] Address: [address] [place] [address] Performed By: #### 2 4323-8 ####[facility] LABCLIA [id number] [place] [address] Chloride [Moles/Vol] 106 mmol/L Normal 98-107 [facility] Comment on above: Order Comment: Speci men Type: BLOOD SPECIMENOrdering Facility: [facility] Address: [address] [place] [address] Performed By: #### 2 4323-8 ####[facility] LABCLIA [id number] [place] [address] CO2 [Moles/Vol] 25 mmol/L Normal 22-30 [facility] Comment on above: Order Comment: Speci men Type: BLOOD SPECIMENOrdering Facility: [facility] Address: [address] [place] [address] Performed By: #### 2 4323-8 ####[facility] LABCLIA [id number] [place] [address] Creatinine [Mass/Vol] 1.34 mg/dL High 0.58-0.96 [facility] Comment on above: Order Comment: Speci men Type: BLOOD SPECIMENOrdering Facility: [facility] Address: [address] [place] [address] Performed By: #### 2 4323-8 ####[facility] LABCLIA [id number] [place] [address] Creatinine and Glomerular filtration rate.predicted panel (S/P/Bld) 42 mL/min/1.73m??? Low >=60 [facility] Comment on above: Order Comment: Speci men Type: BLOOD SPECIMENOrdering Facility: [facility] Address: [address] [place] [address] Result Comment: Miryam mated Glomerular Filtration Rate [...] actual GFR. Performed By: #### 2 4323-8 ####[facility] LABCLIA [id number] [place] [address] Glucose [Mass/Vol] 111 mg/dL High 74-99 [facility] Comment on above: Order Comment: Speci men Type: BLOOD SPECIMENOrdering Facility: [facility] Address: [address] [place] [address] Result Comment: The [place] [employer] Association (ADA) provides guidance for cutoff [...] Standards of Medical Care in Diabetes 2016, [place] [employer]. Diabetes Care. 2016.39(Suppl 1). Performed By: #### 2 4323-8 ####[facility] LABCLIA [id number] [place] [address] Potassium [Moles/Vol] 5.1 mmol/L Normal 3.7-5.1 [facility] Comment on above: Order Comment: Speci men Type: BLOOD SPECIMENOrdering Facility: [facility] Address: [address] [place] [address] Performed By: #### 2 4323-8 ####[facility] LABCLIA [id number] [place] [address] Protein [Mass/Vol] 7.1 g/dL Normal 6.3-8.0 [facility] Comment on above: Order Comment: Speci men Type: BLOOD SPECIMENOrdering Facility: [facility] Address: [address] [place] [address] Performed By: #### 2 4323-8 ####[facility] LABCLIA [id number] [place] [address] Sodium [Moles/Vol] 138 mmol/L Normal 136-144 [facility] Comment on above: Order Comment: Speci men Type: BLOOD SPECIMENOrdering Facility: [facility] Address: [address] [place] [address] Performed By: #### 2 4323-8 ####[facility] LABCLIA [id number] [place] [address] Urea nitrogen [Mass/Vol] 34 mg/dL High 7-21 [facility] Comment on above: Order Comment: Speci men Type: BLOOD SPECIMENOrdering Facility: [facility] Address: [address] [place], [place] [address] Performed By: #### 2 4323-8 ####[facility] LABCLIA [id number] [place] [address] Ferritin SerPl-mCncon 2024 Ferritin [Mass/Vol] 90.3 ng/mL Normal 14.7-205.1 [facility] Comment on above: Order Comment: Speci men Type: BLOOD SPECIMENOrdering Facility: [facility] Address: [address] [place] [address] Performed By: #### 5 0190-8, 2283-8, 2132-03, 2275-10 ####[facility] LABCLIA [id number] [place] [address] [place] Folate SerPl-mCncon 07-11-19 25 Folate [Mass/Vol] 5.4 ng/mL Normal >4.7 [facility] Comment on above: Order Comment: Speci men Type: BLOOD SPECIMENOrdering Facility: [facility] Address: [address] [place] [address] Performed By: #### 5 0190-8, 2283-8, 2132-03, 2275-10 ####[facility] LABCLIA [id number] [place] [address] [place] Iron and Iron binding capaci ty panelon 07-11-2024 Iron [Mass/Vol] 54 ug/dL Normal 41-186 [facility] Comment on above: Order Comment: Speci men Type: BLOOD SPECIMENOrdering Facility: [facility] Address: [address] [place] [address] Performed By: #### 5 0190-8, 2283-8, 2132-03, 2275-10 ####[facility] LABCLIA [id number] [place] [address] [place] Iron binding capacity [Mass/Vol] 362 ug/dL Normal 232-386 [facility] Comment on above: Order Comment: Speci men Type: BLOOD SPECIMENOrdering Facility: [facility] Address: [address] [place] [address] Performed By: #### 5 0190-8, 2284-8, 2-9, 6-4 ####[facility] LABIA [id number] [address] [facility] Iron/TIBC [Molar ratio] 14.9 % Low 15.0-57.0 [facility] Comment on above: Order Comment: Speci men Type: BLOOD SPECIMENOrdering Facility: [facility] Address: [address] [place] [address] Performed By: #### 5 0190-8, 4-8, 2131-9, 6-4 ####[facility] LABIA [id number] [address] [place] Vit B12 [facility] Cobalamin (Vitamin B12) [Mass/Vol] 508 pg/mL Normal 232-1245 [facility] Comment on above: Order Comment: Speci men Type: BLOOD SPECIMENOrdering Facility: [facility] Address: [address] [place] [address] Performed By: #### 5 0190-8, 2284-8, 2131-9, 2275-4 ####[facility] LABIA [id number] [place] [id number] [place] Follow-Upon 05-31-2024 Follow-Up [id number] Andrei Fish 1950 F Date Provider Department Center 05/31/2024 MASSIEL HENDERSON MP ORTHO MPORTHO No family history on file Level of Service:64709 [place] OFFICE/OUTPATIENT ESTABLISHED MOD MDM 30 MIN (GC) Reason for Visit and Comments: Follow-up [903189] Pain [136] Normal [facility] CBC W Auto Differential pane l (Bld)on 05-30-2024 Basophils (Bld) [#/Vol] 10*3/uL Normal <0.11 [facility] Comment on above: Order Comment: Speci men Type: BLOOD SPECIMENOrdering Facility: [facility] Address: [address] [place] [address] Performed By: #### 5 7021-8 ####[facility] LABCLIA [id number] [place] [address] Basophils/100 WBC (Bld) 0.2 % Normal [facility] Comment on above: Order Comment: Speci men Type: BLOOD SPECIMENOrdering Facility: [facility] Address: [address] [place] [address] Performed By: #### 5 7021-8 ####[facility] LABCLIA [id number] [place] [address] Differential cell count method Nom (Bld) Auto Normal [facility] Comment on above: Order Comment: Speci men Type: BLOOD SPECIMENOrdering Facility: [facility] Address: [address] [place] [address] Performed By: #### 5 7021-8 ####[facility] LABCLIA [id number] [place] [address] Eosinophils (Bld) [#/Vol] 0.03 10*3/uL Normal <0.46 [facility] Comment on above: Order Comment: Speci men Type: BLOOD SPECIMENOrdering Facility: [facility] Address: [address] [place] [address] Performed By: #### 5 7021-8 ####[facility] LABCLIA [id number] [place] [address] Eosinophils/100 WBC (Bld) 0.7 % Normal [facility] Comment on above: Order Comment: Speci men Type: BLOOD SPECIMENOrdering Facility: [facility] Address: [address] [place] [address] Performed By: #### 5 7021-8 ####[facility] LABCLIA [id number] [place] [address] Erythrocyte distribution width (RBC) [Ratio] 14.6 % Normal 11.5-15.0 [facility] Comment on above: Order Comment: Speci men Type: BLOOD SPECIMENOrdering Facility: [facility] Address: [address] [place] [address] Performed By: #### 5 7021-8 ####[facility] LABCLIA [id number] [place] [address] Hematocrit (Bld) [Volume fraction] 32.8 % Low 36.0-46.0 [facility] Comment on above: Order Comment: Speci men Type: BLOOD SPECIMENOrdering Facility: [facility] Address: [address] [place] [address] Performed By: #### 5 7021-8 ####[facility] LABCLIA [id number] [place] [address] Hemoglobin (Bld) [Mass/Vol] 10.5 g/dL Low 11.5-15.5 [facility] Comment on above: Order Comment: Speci men Type: BLOOD SPECIMENOrdering Facility: [facility] Address: [address] [place] [address] Performed By: #### 5 7021-8 ####[facility] LABCLIA [id number] [place] [address] Immature granulocytes (Bld) [#/Vol] 10*3/uL Normal <0.10 [facility] Comment on above: Order Comment: Speci men Type: BLOOD SPECIMENOrdering Facility: [facility] Address: [address] [place] [address] Performed By: #### 5 7021-8 ####[facility] LABCLIA [id number] [place] [address] Immature granulocytes/100 WBC (Bld) 0.2 % Normal [facility] Comment on above: Order Comment: Speci men Type: BLOOD SPECIMENOrdering Facility: [facility] Address: [address] [place] [address] Performed By: #### 5 7021-8 ####[facility] LABCLIA [id number] [place] [address] Lymphocytes (Bld) [#/Vol] 1.98 10*3/uL Normal 1.00-4.00 [facility] Comment on above: Order Comment: Speci men Type: BLOOD SPECIMENOrdering Facility: [facility] Address: [address] [place] [address] Performed By: #### 5 7021-8 ####[facility] LABCLIA [id number] [place] [address] Lymphocytes/100 WBC (Bld) 43.3 % Normal [facility] Comment on above: Order Comment: Speci men Type: BLOOD SPECIMENOrdering Facility: [facility] Address: [address] [place] [address] Performed By: #### 5 7021-8 ####[facility] LABCLIA [id number] [place] [address] MCH (RBC) [Entitic mass] 31.7 pg Normal 26.0-34.0 [facility] Comment on above: Order Comment: Speci men Type: BLOOD SPECIMENOrdering Facility: [facility] Address: [address] [place] [address] Performed By: #### 5 7021-8 ####[facility] LABCLIA [id number] [place] [address] MCHC (RBC) [Mass/Vol] 32.0 g/dL Normal 30.5-36.0 [facility] Comment on above: Order Comment: Speci men Type: BLOOD SPECIMENOrdering Facility: [facility] Address: [address] [place] [address] Performed By: #### 5 7021-8 ####[facility] LABCLIA [id number] [place] [address] MCV (RBC) [Entitic vol] 99.1 fL Normal 80.0-100.0 [facility] Comment on above: Order Comment: Speci men Type: BLOOD SPECIMENOrdering Facility: [facility] Address: [address] [place] [address] Performed By: #### 5 7021-8 ####[facility] LABCLIA [id number] [place] [address] Monocytes (Bld) [#/Vol] 0.20 10*3/uL Normal <0.87 [facility] Comment on above: Order Comment: Speci men Type: BLOOD SPECIMENOrdering Facility: [facility] Address: [address] [place] [address] Performed By: #### 5 7021-8 ####[facility] LABCLIA [id number] [place] [address] Monocytes/100 WBC (Bld) 4.4 % Normal [facility] Comment on above: Order Comment: Speci men Type: BLOOD SPECIMENOrdering Facility: [facility] Address: [address] [place] [address] Performed By: #### 5 7021-8 ####[facility] LABCLIA [id number] [place] [address] Neutrophils (Bld) [#/Vol] 2.34 10*3/uL Normal 1.45-7.50 [facility] Comment on above: Order Comment: Speci men Type: BLOOD SPECIMENOrdering Facility: [facility] Address: [address] [place] [address] Performed By: #### 5 7021-8 ####[facility] LABCLIA [id number] [place] [address] Neutrophils/100 WBC (Bld) 51.2 % Normal [facility] Comment on above: Order Comment: Speci men Type: BLOOD SPECIMENOrdering Facility: [facility] Address: [address] [place] [address] Performed By: #### 5 7021-8 ####[facility] LABCLIA [id number] [place] [address] Nucleated RBC (Bld) [#/Vol] 10*3/uL Normal <0.01 [facility] Comment on above: Order Comment: Speci men Type: BLOOD SPECIMENOrdering Facility: [facility] Address: [address] [place] [address] Performed By: #### 5 7021-8 ####[facility] LABCLIA [id number] [place] [address] Nucleated RBC/100 WBC (Bld) [Ratio] 0.0 /100 WBC Normal [facility] Comment on above: Order Comment: Speci men Type: BLOOD SPECIMENOrdering Facility: [facility] Address: [address] [place] [address] Performed By: #### 5 7021-8 ####[facility] LABCLIA [id number] [place] [address] Platelet mean volume (Bld) [Entitic vol] 9.5 fL Normal 9.0-12.7 [facility] Comment on above: Order Comment: Speci men Type: BLOOD SPECIMENOrdering Facility: [facility] Address: [address] [place] [address] Performed By: #### 5 7021-8 ####[facility] LABCLIA [id number] [place] [address] Platelets (Bld) [#/Vol] 157 10*3/uL Normal 150-400 [facility] Comment on above: Order Comment: Speci men Type: BLOOD SPECIMENOrdering Facility: [facility] Address: [address] [place] [address] Performed By: #### 5 7021-8 ####[facility] LABCLIA [id number] [place] [address] RBC (Bld) [#/Vol] 3.31 10*6/uL Low 3.90-5.20 [facility] Comment on above: Order Comment: Speci men Type: BLOOD SPECIMENOrdering Facility: [facility] Address: [address] [place] [address] Performed By: #### 5 7021-8 ####[facility] LABCLIA [id number] [place] [address] WBC (Bld) [#/Vol] 4.57 10*3/uL Normal 3.70-11.00 [facility] Comment on above: Order Comment: Speci men Type: BLOOD SPECIMENOrdering Facility: [facility] Address: [address] [place] [address] Performed By: #### 5 7021-8 ####[facility] LABCLIA [id number] [place] [address] CNNURSEon 05-30-2024 CNNURSE Normal [facility] CNOVSPon 05-30-2024 CNOVSP Normal [facility] Comprehensive metabolic 2000 panelon 05-30-2024 Albumin [Mass/Vol] 3.7 g/dL Low 3.9-4.9 [facility] Comment on above: Order Comment: Speci men Type: BLOOD SPECIMENOrdering Facility: [facility] Address: [address] [place] [address] Performed By: #### 2 4323-8 ####[facility] LABCLIA [id number] [place] [address] ALP [Catalytic activity/Vol] 74 U/L Normal 34-123 [facility] Comment on above: Order Comment: Speci men Type: BLOOD SPECIMENOrdering Facility: [facility] Address: [address] [place] [address] Performed By: #### 2 4323-8 ####[facility] LABCLIA [id number] [place] [address] ALT [Catalytic activity/Vol] 13 U/L Normal 7-38 [facility] Comment on above: Order Comment: Speci men Type: BLOOD SPECIMENOrdering Facility: [facility] Address: [address] [place] [address] Performed By: #### 2 4323-8 ####[facility] LABCLIA [id number] [place] [address] Anion gap [Moles/Vol] 8 mmol/L Normal 8-15 [facility] Comment on above: Order Comment: Speci men Type: BLOOD SPECIMENOrdering Facility: [facility] Address: [address] [place] [address] Performed By: #### 2 4323-8 ####[facility] LABCLIA [id number] [place] [address] AST [Catalytic activity/Vol] 20 U/L Normal 13-35 [facility] Comment on above: Order Comment: Speci men Type: BLOOD SPECIMENOrdering Facility: [facility] Address: [address] [place] [address] Performed By: #### 2 4323-8 ####[facility] LABCLIA [id number] [place] [address] Bilirubin [Mass/Vol] 0.5 mg/dL Normal 0.2-1.3 [facility] Comment on above: Order Comment: Speci men Type: BLOOD SPECIMENOrdering Facility: [facility] Address: [address] [place] [address] Performed By: #### 2 4323-8 ####[facility] LABCLIA [id number] [place] [address] Calcium [Mass/Vol] 9.4 mg/dL Normal 8.5-10.2 [facility] Comment on above: Order Comment: Speci men Type: BLOOD SPECIMENOrdering Facility: [facility] Address: [address] [place] [address] Performed By: #### 2 4323-8 ####[facility] LABCLIA [id number] [place] [address] Chloride [Moles/Vol] 106 mmol/L Normal 98-107 [facility] Comment on above: Order Comment: Speci men Type: BLOOD SPECIMENOrdering Facility: [facility] Address: [address] [place], [place] [address] Performed By: #### 2 4323-8 ####[facility] LABCLIA [id number] [place] [address] CO2 [Moles/Vol] 27 mmol/L Normal 22-30 [facility] Comment on above: Order Comment: Speci men Type: BLOOD SPECIMENOrdering Facility: [facility] Address: [address] [place] [address] Performed By: #### 2 4323-8 ####[facility] LABCLIA [id number] [place] [address] Creatinine [Mass/Vol] 1.24 mg/dL High 0.58-0.96 [facility] Comment on above: Order Comment: Speci men Type: BLOOD SPECIMENOrdering Facility: [facility] Address: [address] [place] [address] Performed By: #### 2 4323-8 ####[facility] LABCLIA [id number] [place] [address] Creatinine and Glomerular filtration rate.predicted panel (S/P/Bld) 46 mL/min/1.73m??? Low >=60 [facility] Comment on above: Order Comment: Speci men Type: BLOOD SPECIMENOrdering Facility: [facility] Address: [address] [place] [address] Result Comment: Miryam mated Glomerular Filtration Rate [...] actual GFR. Performed By: #### 2 4323-8 ####[facility] LABCLIA [id number] [place] [address] Glucose [Mass/Vol] 118 mg/dL High 74-99 [facility] Comment on above: Order Comment: Speci men Type: BLOOD SPECIMENOrdering Facility: [facility] Address: [address] [place], [place] [address] Result Comment: The [place] [employer] (ADA) provides guidance for cutoff [...] Standards of Medical Care in Diabetes 2016, [place] [employer]. Diabetes Care. 2016.39(Suppl 1). Performed By: #### 2 4323-8 ####[facility] LABCLIA [id number] [place] [address] Potassium [Moles/Vol] 4.8 mmol/L Normal 3.7-5.1 [facility] Comment on above: Order Comment: Speci men Type: BLOOD SPECIMENOrdering Facility: [facility] Address: [address] [place], [place] [address] Performed By: #### 2 4323-8 ####[facility] LABCLIA [id number] [place] [address] Protein [Mass/Vol] 7.3 g/dL Normal 6.3-8.0 [facility] Comment on above: Order Comment: Speci men Type: BLOOD SPECIMENOrdering Facility: [facility] Address: [address] [place], [place] [address] Performed By: #### 2 4323-8 ####[facility] LABCLIA [id number] [place] [address] Sodium [Moles/Vol] 141 mmol/L Normal 136-144 [facility] Comment on above: Order Comment: Speci men Type: BLOOD SPECIMENOrdering Facility: [facility] Address: [address] [place], [place] [address] Performed By: #### 2 4323-8 ####[facility] LABCLIA [id number] [place] [address] Urea nitrogen [Mass/Vol] 32 mg/dL High 7- [facility] Comment on above: Order Comment: Speci men Type: BLOOD SPECIMENOrdering Facility: [facility] Address: [address] [place] [address] Performed By: #### 2 4323-8 ####[facility] LABCLIA [id number] [place] [address] Ferritin SerPl-mCncon 2023 Ferritin [Mass/Vol] 104.0 ng/mL Normal 14.7-205.1 [facility] Comment on above: Order Comment: Speci men Type: BLOOD SPECIMENOrdering Facility: [facility] Address: [address] [place] [address] Performed By: #### 2 276-4, 14044-5, 2132-03, 2284-02 ####[facility] LABCLIA [id number] [place] [id number] [place] Folate SerPl-mCncon 05-30-20 Folate [Mass/Vol] 5.1 ng/mL Normal >4.7 [facility] Comment on above: Order Comment: Speci men Type: BLOOD SPECIMENOrdering Facility: [facility] Address: [address] [place] [address] Performed By: #### 2 276-4, 54489-7, 2132-03, 2284-02 ####[facility] LABCLIA [id number] [facility] [address] [address] [place] Iron and Iron binding capaci ty panelon 05-30-2024 Iron [Mass/Vol] 74 ug/dL Normal 41-186 [facility] Comment on above: Order Comment: Speci men Type: BLOOD SPECIMENOrdering Facility: [facility] Address: [address] [place], [place] [address] Performed By: #### 2 276-4, 23200-8, 9, 8 ####[facility] LABCLIA [id number] [place] [address] [place] Iron binding capacity [Mass/Vol] 349 ug/dL Normal 232-386 [facility] Comment on above: Order Comment: Speci men Type: BLOOD SPECIMENOrdering Facility: [facility] Address: [address] [place] [address] Performed By: #### 2 276-4, 62175-8, 9, 2284-02 ####[facility] LABCLIA [id number] [place] [address] [place] Iron/TIBC [Molar ratio] 21.2 % Normal 15.0-57.0 [facility] Comment on above: Order Comment: Speci men Type: BLOOD SPECIMENOrdering Facility: [facility] Address: [address] [place] [address] Performed By: #### 2 276-4, 07010-9, 9, 2284-02 ####[facility] LABCLIA [id number] [place] [id number] [place] Vit B12 [facility] 11-21-2 024 Cobalamin (Vitamin B12) [Mass/Vol] 488 pg/mL Normal 232-1245 [facility] Comment on above: Order Comment: Speci men Type: BLOOD SPECIMENOrdering Facility: [facility] Address: [address] [place] [address] Performed By: #### 2 276-4, 45686-7, 9, 8 ####[facility] LABCLIA [id number] [place] [id number] [place] C-REACTIVE PROTEINon 024 C REACTIVE PROTEIN (MG/L) IN SER/PLAS 14.7 mg/L High <=5.0 [facility] Comment on above: Result Comment: Test ing performed using a new methodology, turbidimetry. Normal ranges have been updated. Old normal range was <8 mg/L. Performed By: #### L AB149 #### [facility] ([facility]NA MARIE) [address] [place] [address] Labon 05-21-2024 Lab [id number] Andrei Fish 1950 F Date Provider Department Center 05/21/2024 2244-[facility] MP LAB RESOURCE MP DRAW Medical Pavi No family history on file Normal [facility] Office Visiton 05-21-2024 Follow-up visit [id number] Andrei Fish 1950 F Date Provider Department Center 05/21/2024 Artie-DOUG MORRELL MP ORTHO MPORTHO No family history on file Level of Service:07144 [place] OFFICE/OUTPATIENT ESTABLISHED LOW MDM 20 MIN Reason for Visit and Comments: New Patient [632] - Patient reports pain worse when walking, reports had tibia fx with repair in 2003 from , patient reports swelling and tenderness to read. Normal [facility] SEDIMENTATION RATEon 024 SEDIMENTATION RATE, ERYTHROCYTE 91 mm/hr High <=20 [facility] Comment on above: Performed By: #### L AB322 #### [facility] [address] [place] [address] XR Lumbar spine 2 or 3 Views on 05-13-2024 Imaging Result: AP and lateral of lumbar spine showed markedly arthritis globally to the lumbar spine with ankylosing noted to both superior and inferior endplates globally. There is decreased disc space noted globally to the lumbar spine. Anterior and posterior columns appeared to be symmetric posterior elements appear to be anatomic. There was no acute Bony process including but not limited to fracture and/or dislocation. Calcified aorta noted. Impression: Moderate degenerative changes lumbar spine globally no acute bony process. [facility] Radiology Study observation (narrative) [facility] CBC W Auto Differential pane l (Bld)on 04-18-2024 Basophils (Bld) [#/Vol] 10*3/uL Normal <0.11 [facility] Comment on above: Order Comment: Speci men Type: BLOOD SPECIMENOrdering Facility: [facility] Address: [address] [place] [address] Performed By: #### 5 7021-8, 82114-0 ####[facility] LABCLIA [id number] [place] [address] Basophils/100 WBC (Bld) 0.2 % Normal [facility] Comment on above: Order Comment: Speci men Type: BLOOD SPECIMENOrdering Facility: [facility] Address: [address] [place] [address] Performed By: #### 5 7021-8, 52810-0 ####[facility] LABCLIA [id number] [place] [address] Differential cell count method Nom (Bld) Auto Normal [facility] Comment on above: Order Comment: Speci men Type: BLOOD SPECIMENOrdering Facility: [facility] Address: [address] [place] [address] Performed By: #### 5 7021-8, 34359-3 ####[facility] LABCLIA [id number] [place] [address] Eosinophils (Bld) [#/Vol] 0.03 10*3/uL Normal <0.46 [facility] Comment on above: Order Comment: Speci men Type: BLOOD SPECIMENOrdering Facility: [facility] Address: [address] [place] [address] Performed By: #### 5 7021-8, 96858-2 ####[facility] LABCLIA [id number] [place] [address] Eosinophils/100 WBC (Bld) 0.5 % Normal [facility] Comment on above: Order Comment: Speci men Type: BLOOD SPECIMENOrdering Facility: [facility] Address: [address] [place] [address] Performed By: #### 5 7021-8, 19389-5 ####[facility] LABCLIA [id number] [place] [address] Erythrocyte distribution width (RBC) [Ratio] 14.9 % Normal 11.5-15.0 [facility] Comment on above: Order Comment: Speci men Type: BLOOD SPECIMENOrdering Facility: [facility] Address: [address] [place] [address] Performed By: #### 5 7021-8, 17163-5 ####[facility] LABCLIA [id number] [place] [address] Hematocrit (Bld) [Volume fraction] 33.3 % Low 36.0-46.0 [facility] Comment on above: Order Comment: Speci men Type: BLOOD SPECIMENOrdering Facility: [facility] Address: [address] [place] [address] Performed By: #### 5 7021-8, 52196-4 ####[facility] LABCLIA [id number] [place] [address] Hemoglobin (Bld) [Mass/Vol] 10.7 g/dL Low 11.5-15.5 [facility] Comment on above: Order Comment: Speci men Type: BLOOD SPECIMENOrdering Facility: [facility] Address: [address] [place] [address] Performed By: #### 5 7021-8, 77469-2 ####[facility] LABCLIA [id number] [place] [address] Immature granulocytes (Bld) [#/Vol] 10*3/uL Normal <0.10 [facility] Comment on above: Order Comment: Speci men Type: BLOOD SPECIMENOrdering Facility: [facility] Address: [address] [place] [address] Performed By: #### 5 7021-8, 11808-1 ####[facility] LABCLIA [id number] [place] [address] Immature granulocytes/100 WBC (Bld) 0.2 % Normal [facility] Comment on above: Order Comment: Speci men Type: BLOOD SPECIMENOrdering Facility: [facility] Address: [address] [place] [address] Performed By: #### 5 7021-8, 67275-0 ####[facility] LABCLIA [id number] [place] [address] Lymphocytes (Bld) [#/Vol] 2.35 10*3/uL Normal 1.00-4.00 [facility] Comment on above: Order Comment: Speci men Type: BLOOD SPECIMENOrdering Facility: [facility] Address: [address] [place] [address] Performed By: #### 5 7021-8, 00860-8 ####[facility] LABCLIA [id number] [place] [address] Lymphocytes/100 WBC (Bld) 41.8 % Normal [facility] Comment on above: Order Comment: Speci men Type: BLOOD SPECIMENOrdering Facility: [facility] Address: [address] [place] [address] Performed By: #### 5 7021-8, 52854-8 ####[facility] LABCLIA [id number] [place] [address] MCH (RBC) [Entitic mass] 31.5 pg Normal 26.0-34.0 [facility] Comment on above: Order Comment: Speci men Type: BLOOD SPECIMENOrdering Facility: [facility] Address: [address] [place] [address] Performed By: #### 5 7021-8, 50437-3 ####[facility] LABCLIA [id number] [place] [address] MCHC (RBC) [Mass/Vol] 32.1 g/dL Normal 30.5-36.0 [facility] Comment on above: Order Comment: Speci men Type: BLOOD SPECIMENOrdering Facility: [facility] Address: [address] [place] [address] Performed By: #### 5 7021-8, 77727-3 ####[facility] LABCLIA [id number] [place] [address] MCV (RBC) [Entitic vol] 97.9 fL Normal 80.0-100.0 [facility] Comment on above: Order Comment: Speci men Type: BLOOD SPECIMENOrdering Facility: [facility] Address: [address] [place] [address] Performed By: #### 5 7021-8, 59171-3 ####[facility] LABCLIA [id number] [place] [address] Monocytes (Bld) [#/Vol] 0.29 10*3/uL Normal <0.87 [facility] Comment on above: Order Comment: Speci men Type: BLOOD SPECIMENOrdering Facility: [facility] Address: [address] [place] [address] Performed By: #### 5 7021-8, 79116-9 ####[facility] LABCLIA [id number] [place] [address] Monocytes/100 WBC (Bld) 5.2 % Normal C [facility] Comment on above: Order Comment: Speci men Type: BLOOD SPECIMENOrdering Facility: [facility] Address: [address] [place], [place] [id number] Performed By: #### 5 7021-8, 38840-0 ####[facility] [facility] LABCLIA [id number] [place] [address] Neutrophils (Bld) [#/Vol] 2.93 10*3/uL Normal 1.45-7.50 [facility] Comment on above: Order Comment: Speci men Type: BLOOD SPECIMENOrdering Facility: [facility] Address: [address] [place], [place] [address] Performed By: #### 5 7021-8, 83517-7 ####[facility] LABCLIA [id number] [place] [address] Neutrophils/100 WBC (Bld) 52.1 % Normal [facility] Comment on above: Order Comment: Speci men Type: BLOOD SPECIMENOrdering Facility: [facility] Address: [address] [place] [address] Performed By: #### 5 7021-8, 05668-9 ####[facility] LABCLIA [id number] [place] [address] Nucleated RBC (Bld) [#/Vol] 10*3/uL Normal <0.01 [facility] Comment on above: Order Comment: Speci men Type: BLOOD SPECIMENOrdering Facility: [facility] Address: [address] [place] [address] Performed By: #### 5 7021-8, 20649-7 ####[facility] LABCLIA [id number] [place] [address] Nucleated RBC/100 WBC (Bld) [Ratio] 0.0 /100 WBC Normal [facility] Comment on above: Order Comment: Speci men Type: BLOOD SPECIMENOrdering Facility: [facility] Address: [address] [place] [address] Performed By: #### 5 7021-8, 80576-0 ####[facility] LABCLIA [id number] [place] [address] Platelet mean volume (Bld) [Entitic vol] 9.7 fL Normal 9.0-12.7 [facility] Comment on above: Order Comment: Speci men Type: BLOOD SPECIMENOrdering Facility: [facility] Address: [address] [place] [address] Performed By: #### 5 7021-8, 77179-3 ####[facility] LABCLIA [id number] [place] [address] Platelets (Bld) [#/Vol] 174 10*3/uL Normal 150-400 [facility] Comment on above: Order Comment: Speci men Type: BLOOD SPECIMENOrdering Facility: [facility] Address: [address] [place] [address] Performed By: #### 5 7021-8, 47657-7 ####[facility] LABCLIA [id number] [place] [address] RBC (Bld) [#/Vol] 3.40 10*6/uL Low 3.90-5.20 [facility] Comment on above: Order Comment: Speci men Type: BLOOD SPECIMENOrdering Facility: [facility] Address: [address] [place] [address] Performed By: #### 5 7021-8, 99591-8 ####[facility] LABCLIA [id number] [place] [address] WBC (Bld) [#/Vol] 5.62 10*3/uL Normal 3.70-11.00 [facility] Comment on above: Order Comment: Speci men Type: BLOOD SPECIMENOrdering Facility: [facility] Address: [address] [place] [address] Performed By: #### 5 7021-8, 83872-4 ####[facility] LABCLIA [id number] [place] [address] CNNURSEon 04-18-2024 CNNURSE Normal [facility] CNOVSPon 04-18-2024 CNOVSP Normal [facility] Comprehensive metabolic 2000 panelon 04-18-2024 Albumin [Mass/Vol] 3.7 g/dL Low 3.9-4.9 [facility] Comment on above: Order Comment: Speci men Type: BLOOD SPECIMENOrdering Facility: [facility] Address: [address] [place] [address] Performed By: #### 2 4323-8 ####[facility] LABCLIA [id number] [place] [address] ALP [Catalytic activity/Vol] 77 U/L Normal 34-123 [facility] Comment on above: Order Comment: Speci men Type: BLOOD SPECIMENOrdering Facility: [facility] Address: [facility] [place] [address] Performed By: #### 2 4323-8 ####[facility] LABCLIA [id number] [place] [address] ALT [Catalytic activity/Vol] 13 U/L Normal 7-38 [facility] Comment on above: Order Comment: Speci men Type: BLOOD SPECIMENOrdering Facility: [facility] Address: [address] [place] [address] Performed By: #### 2 4323-8 ####[facility] LABCLIA [id number] [place] [address] Anion gap [Moles/Vol] 17 mmol/L High 8-15 [facility] Comment on above: Order Comment: Speci men Type: BLOOD SPECIMENOrdering Facility: [facility] Address: [address] [place] [address] Performed By: #### 2 4323-8 ####[facility] LABCLIA [id number] [place] [address] AST [Catalytic activity/Vol] 22 U/L Normal 13-35 [facility] Comment on above: Order Comment: Speci men Type: BLOOD SPECIMENOrdering Facility: [facility] Address: [address] [place] [address] Performed By: #### 2 4323-8 ####[facility] LABCLIA [id number] [place] [address] Bilirubin [Mass/Vol] 0.4 mg/dL Normal 0.2-1.3 [facility] Comment on above: Order Comment: Speci men Type: BLOOD SPECIMENOrdering Facility: [facility] Address: [address] [place] [address] Performed By: #### 2 4323-8 ####[facility] LABCLIA [id number] [place] [address] Calcium [Mass/Vol] 9.4 mg/dL Normal 8.5-10.2 [facility] Comment on above: Order Comment: Speci men Type: BLOOD SPECIMENOrdering Facility: [facility] Address: [address] [place] [address] Performed By: #### 2 4323-8 ####[facility] LABCLIA [id number] [place] [address] Chloride [Moles/Vol] 101 mmol/L Normal 98-107 [facility] Comment on above: Order Comment: Speci men Type: BLOOD SPECIMENOrdering Facility: [facility] Address: [address] [place] [address] Performed By: #### 2 4323-8 ####[facility] LABCLIA [id number] [place] [address] CO2 [Moles/Vol] 24 mmol/L Normal 22-30 [facility] Comment on above: Order Comment: Speci men Type: BLOOD SPECIMENOrdering Facility: [facility] Address: [address] [place] [address] Performed By: #### 2 4323-8 ####[facility] LABCLIA [id number] [place] [address] Creatinine [Mass/Vol] 1.18 mg/dL High 0.58-0.96 [facility] Comment on above: Order Comment: Speci men Type: BLOOD SPECIMENOrdering Facility: [facility] Address: [address] [place], [place] [address] Performed By: #### 2 4323-8 ####[facility] LABCLIA [id number] [place] [address] Creatinine and Glomerular filtration rate.predicted panel (S/P/Bld) 49 mL/min/1.73m??? Low >=60 [facility] Comment on above: Order Comment: Speci men Type: BLOOD SPECIMENOrdering Facility: [facility] Address: [address] [id number] Result Comment: Miryam mated Glomerular Filtration Rate [...] actual GFR. Performed By: #### 2 4323-8 ####[facility] LABCLIA [id number] [place] [address] Glucose [Mass/Vol] 103 mg/dL High 74-99 [facility] Comment on above: Order Comment: Fabricio tapia Type: BLOOD SPECIMENOrdering Facility: [facility] Address: [address] [place] [address] Result Comment: The [place] Diabetes Association (ADA) provides guidance for cutoff [...] Standards of Medical Care in Diabetes 2016, [place] Diabetes Association. Diabetes Care. 2016.39(Suppl 1). Performed By: #### 2 4323-8 ####[facility] LABCLIA [id number] [place] [address] Potassium [Moles/Vol] 4.9 mmol/L Normal 3.7-5.1 [facility] Comment on above: Order Comment: Fabricio tapia Type: BLOOD SPECIMENOrdering Facility: [facility] Address: [address] [id number] Performed By: #### 2 4323-8 ####[facility] LABCLIA [id number] [place] [address] Protein [Mass/Vol] 7.2 g/dL Normal 6.3-8.0 [facility] Comment on above: Order Comment: Speci men Type: BLOOD SPECIMENOrdering Facility: [facility] Address: [address] [place] [address] Performed By: #### 2 4323-8 ####[facility] LABCLIA [id number] [place] [address] Sodium [Moles/Vol] 142 mmol/L Normal 136-144 [facility] Comment on above: Order Comment: Speci men Type: BLOOD SPECIMENOrdering Facility: [facility] Address: [address] [place] [address] Performed By: #### 2 4323-8 ####[facility] LABCLIA [id number] [place] [address] Urea nitrogen [Mass/Vol] 30 mg/dL High 7-21 [facility] Comment on above: Order Comment: Speci men Type: BLOOD SPECIMENOrdering Facility: [facility] Address: [address] [place] [address] Performed By: #### 2 4323-8 ####[facility] LABCLIA [id number] [place] [address] EPO SerPl-aCncon 04-18-2024 Erythropoietin (EPO) Qn 70.1 mIU/mL High 2.6-18.5 [facility] Comment on above: Order Comment: Speci men Type: BLOOD SPECIMENOrdering Facility: [facility] Address: [address] [place] [address] Performed By: #### 1 5061-5 ####[facility] LABCLIA [id number] [address] [address] [place] Ferritin SerPl-mCncon 2023 Ferritin [Mass/Vol] 86.9 ng/mL Normal 14.7-205.1 [facility] Comment on above: Order Comment: Fabricio tapia Type: BLOOD SPECIMENOrdering Facility: [facility] Address: [address] [place] [address] Performed By: #### 5 0190-8, 2-9, 4-8, 6-4 ####[facility] LABCLIA [id number] [place] [address] [place] Folate SerPl-mCncon 04-18-20 24 Folate [Mass/Vol] 6.2 ng/mL Normal >4.7 [facility] Comment on above: Order Comment: Virgilioi men Type: BLOOD SPECIMENOrdering Facility: [facility] Address: [address] [place] [address] Performed By: #### 5 0190-8, 2-9, 4-8, 6-4 ####[facility] LABCLIA [id number] [place] [address] [place] HbA1c (Bld)on 04-18-2024 Average glucose Estimated from glycated hemoglobin (Bld) [Mass/Vol] 134 mg/dL [facility] Comment on above: eAG: (Estimated aver age glucose) is a calculated value from HgbA1c and is small business representative of the average blood glucose level in the last 2-3 month period. HbA1c (Bld) [Mass fraction] 6.3 % High 4.3 - 5.6 % [facility] Comment on above: [place] Diabetes As sociation guidelines indicate that patients with HgbA1c in the range 5.7-6.4% are at increased risk for development of diabetes, and intervention by lifestyle modification may be beneficial. HgbA1c greater or equal to 6.5% is considered diagnostic of diabetes. Interpretation and review of laboratory results Abnormal [facility] Average glucose Estimated from glycated hemoglobin (Bld) [Mass/Vol] 134 mg/dL Normal [facility] Comment on above: Order Comment: Fabricio tapia Type: BLOOD SPECIMENOrdering Facility: [facility] Address: [address] [place] [address] Result Comment: eAG: (Estimated average glucose) is a calculated value from HgbA1c and is small business representative of the average blood glucose level in the last 2-3 month period. Performed By: #### 5 5454-3 ####[facility] LABCLIA [id number] [place] [address] [place] HbA1c (Bld) [Mass fraction] 6.3 % High 4.3-5.6 [facility] Comment on above: Order Comment: Speci men Type: BLOOD SPECIMENOrdering Facility: [facility] Address: [address] [place] [address] Result Comment: [place] Diabetes Association guidelines indicate that patients with HgbA1c in the range 5.7-6.4% are at increased risk for development of diabetes, and intervention by lifestyle modification may be beneficial. HgbA1c greater or equal to 6.5% is considered diagnostic of diabetes. Performed By: #### 5 5454-3 ####[facility] LABCLIA [id number] [place] [address] [place] Iron and Iron binding capaci ty panel 04-18-2024 Iron [Mass/Vol] 69 ug/dL Normal 41-186 [facility] Comment on above: Order Comment: Virgilioi men Type: BLOOD SPECIMENOrdering Facility: [facility] Address: [address] [place] [address] Performed By: #### 5 0190-8, 9, 8, 2275-4 ####[facility] LABCLIA [id number] [place] [address] [place] Iron binding capacity [Mass/Vol] 340 ug/dL Normal 232-386 [facility] Comment on above: Order Comment: Virgilioi men Type: BLOOD SPECIMENOrdering Facility: [facility] Address: [address] [place] [address] Performed By: #### 5 0190-8, 9, 8, 2275-4 ####[facility] LABCLIA [id number] [place] [address] [place] Iron/TIBC [Molar ratio] 20.3 % Normal 15.0-57.0 [facility] Comment on above: Order Comment: Speci men Type: BLOOD SPECIMENOrdering Facility: [facility] Address: [address] [place] [address] Performed By: #### 5 0190-8, 9, 8, 2275-4 ####[facility] LABCLIA [id number] [address] [place] Retics #on 04-18-2024 Reticulocytes (Bld) [#/Vol] 0.05657 10*3/uL Normal 0.018-0.100 [facility] Comment on above: Order Comment: Speci men Type: BLOOD SPECIMENOrdering Facility: [facility] Address: [address] [place] [address] Performed By: #### 5 7021-8, 29490-4 ####[facility] LABCLIA [id number] [place] [address] Reticulocytes (Bld) [#/Vol]o n 04-18-2024 Reticulocytes/100 RBC (Bld) 1.6 % Normal 0.4-2.0 [facility] Comment on above: Order Comment: Speci men Type: BLOOD SPECIMENOrdering Facility: [facility] Address: [address] [place] [address] Performed By: #### 5 7021-8, 69997-7 ####[facility] LABCLIA [id number] [place] [address] Vit B12 [facility] 024 Cobalamin (Vitamin B12) [Mass/Vol] 548 pg/mL Normal 232-1245 [facility] Comment on above: Order Comment: Speci men Type: BLOOD SPECIMENOrdering Facility: [facility] Address: [address] [place] [address] Performed By: #### 5 0190-8, 9, 8, 2275-4 ####[facility] LABCLIA [id number] [address] [address] [place] MAMM SCREENING BILATERAL W C administrative support assoc 04-17-2024 MAMM SCREENING BILATERAL W CAD MAMM SCREENING BILATERAL W CAD ANDREI FISH 1950 [id number] EXAM: MAMM SCREENING BILATERAL W CAD, 04/17/2024 [...] 10:45 AM 1 c MAMM 1 YR Normal [facility] Momo 04-16-2024 L Specimen: [id number] Received: 04/19/24 Status: ANGEL Valente Num: [id number] Spec Type: Cytology Subm Dr: KYUNG Reece Tissues: A FNA SLIDES NOPATH (RT THYROID) Procedures: Cyto Int and Re, PAPSTN/5 Age/ Patient Sex Location Account Attending Physician Andrei Fish 73/F LABELL [id number] Simon Zuniga MD SPEC NUM: [id number] RECD: 04/19/24 STATUS: ANGEL MOSESQ NUM: [id number] OMAR: 04/16/24- SUBM DR: KYUNG Reece ENTERED: 04/19/[address]: Abrahan Sandra MD SPEC TYPE: Cytology DEPT: [facility] ENTERED BY: [id number] RECV BY: [id number] ORDERED: Cyto Int and Re, PAPSTN/5 ORDERED: Cyto Int and Re, PAPSTN/5 Pathological Diagnosis Right thyroid nodule, fine needle aspiration (Smear and ThinPrep): - Satisfactory for evaluation. - Few sheets of benign-appearing follicular cells in a background of macrophages, watery co lloid and blood consistent with benign follicular nodule/nodular goiter (Archie Category: II). - Negative for malignant cells. Clinical Information Right Thyroid Nodule Gross Description Received fixed in Cytolyt is <1 ml pale pink clear fluid fluid for cytology said to have been obtained as Right thyroid nodule mid. ThinPrep preparations are prepared for microscopic examination. Also received are 4 spray fixed smeared slides for pap and a Veracyte vial stored at -20 microscopic examination. (MG/nh) ---- Specimen: [id number] Received: 04/19/24 Status: ANGEL Valente Num: [id number] Spec Type: Cytology Subm Dr: Stephanie Dumont, DIFFUSION FURNACE OPERATOR-C Tissues: A FNA SLIDES NOPATH (RT THYROID) Procedures: Cyto Int and Re, PAPSTN/5 ---- Patient: AbePaulalicia [id number] (Continued) ---- Specimen: [id number] Received: 04/19/24 (Continued) Signed (signature on file) Nnamdi Woodall MD 04/30/24 1143 ---- Specimen: [id number] Received: 04/19/24 Status: ANGEL Valente Num: [id number] Spec Type: Cytology Subm Dr: Stephanie Dumont, KYUNG Tissues: A FNA SLIDES MARÍA (RT THYROID) Procedures: Cyto Int and Re, PAPSTN/5 ---- Patient: Andrei Fish [id number] (Continued) ---- Specimen: [id number] Received: 04/19/24 (Continued) Microscopic Description Microscopic examination is performed. CPT Codes 64989, 66748 ---- ---- Specimen: [id number] Received: 04/19/24 Status: ANGEL Mosesbrionna Num: [id number] Spec Type: Cytology Subm Dr: Stephanie Dumont, DIFFUSION FURNACE OPERATOR-C Tissues: A FNA SLIDES NOPGERARD (RT THYROID) Procedures: Cyto Int and Re, PAPSTN/5 ---- Patient: Andrei Fish [id number] (Continued) ---- Signed (signature on file) Nnamdi Woodall MD 04/30/24 1143 Normal [facility] CBC AND AUTO DIFFon 04-10-20 24 ABSOLUTE BASOPHIL 0.0 X10E9/L Normal 0.0-0.2 [facility] Comment on above: Performed By: #### 1 988-5, CBCA, 08878-8 #### [facility] ([id number]) [address], [address] [place] [address] ABSOLUTE NEUTROPHIL 2.7 X10E9/L Normal 1.5-6.6 [facility] Comment on above: Performed By: #### 1 988-5, CBCA, 09598-8 #### [facility] ([id number]) [address], [address] [place] [address] Basophils/100 WBC (Bld) 0.3 % Normal [facility] Comment on above: Performed By: #### 1 988-5, CBCA, 25124-1 #### [facility] ([id number]) [address], [address] [place] [address] Eosinophils (Bld) [#/Vol] 0.0 10*3/uL Normal 0.0-0.4 [facility] Comment on above: Performed By: #### 1 988-5, CBCA, 03921-7 #### [facility] ([id number]) [address], [address] [place] [address] Eosinophils/100 WBC (Bld) 0.9 % Normal [facility] Comment on above: Performed By: #### 1 988-5, CBCA, 96254-1 #### [facility] ([id number]) [address], [address] [place] [address] Erythrocyte distribution width (RBC) [Ratio] 15.9 % High 11.5-15.0 [facility] Comment on above: Performed By: #### 1 988-5, CBCA, 17874-1 #### [facility] ([id number]) [address], [address] [place] [address] Hematocrit (Bld) [Volume fraction] 34.3 % Low 35-47 [facility] Comment on above: Performed By: #### 1 988-5, CBCA, 45649-9 #### [facility] ([id number]) [address], [address] [place] [address] Hemoglobin (Bld) [Mass/Vol] 11.3 g/dL Low 11.7-15.5 [facility] Comment on above: Performed By: #### 1 988-5, CBCA, 08818-3 #### [facility] ([id number]) [address], [address] [place] [address] Lymphocytes (Bld) [#/Vol] 2.1 10*3/uL Normal 1.0-3.5 [facility] Comment on above: Performed By: #### 1 988-5, CBCA, 26077-5 #### [facility] ([id number]) [address], [facility] [address] [place] [address] Lymphocytes/100 WBC (Bld) 40.8 % Normal [facility] Comment on above: Performed By: #### 1 988-5, CBCA, 11685-7 #### [facility] ([id number]) [address], [address] [place] [address] MCH (RBC) [Entitic mass] 31.8 pg Normal 27-34 [facility] Comment on above: Performed By: #### 1 988-5, CBCA, 73253-1 #### [facility] ([id number]) [address], [address] [place] [address] MCHC (RBC) [Mass/Vol] 32.8 g/dL Normal 32-36 [facility] Comment on above: Performed By: #### 1 988-5, CBCA, 09580-4 #### [facility] ([id number]) [address], [address] [place] [address] MCV (RBC) [Entitic vol] 97 fL Normal 80-100 [facility] Comment on above: Performed By: #### 1 988-5, CBCA, 82558-1 #### [facility] ([id number]) [address], [address] [place] [address] Monocytes (Bld) [#/Vol] 0.2 10*3/uL Normal 0-0.9 [facility] Comment on above: Performed By: #### 1 988-5, CBCA, 23742-0 #### [facility] ([id number]) [address], [address] [place] [address] Monocytes/100 WBC (Bld) 3.9 % Normal [facility] Comment on above: Performed By: #### 1 988-5, CBCA, 96487-7 #### [facility] ([id number]) [address], [address] [place] [address] Neutrophils/100 WBC (Bld) 54.1 % Normal [facility] Comment on above: Performed By: #### 1 988-5, CBCA, 23222-2 #### [facility] ([id number]) [address], [address] [place] [address] Platelet mean volume (Bld) [Entitic vol] 8.3 fL Normal 7-12 [facility] Comment on above: Performed By: #### 1 988-5, CBCA, 44310-0 #### [facility] ([id number]) [address], [address] [place] [address] Platelets (Bld) [#/Vol] 208 10*3/uL Normal 150-450 [facility] Comment on above: Performed By: #### 1 988-5, CBCA, 64480-0 #### [facility] ([id number]) [address], [address] [place] [address] RBC COUNT 3.54 X10E12/L Low 3.80-5.20 [facility] Comment on above: Performed By: #### 1 988-5, CBCA, 55440-0 #### [facility] ([id number]) [address], [address] [place] [address] WBC (Bld) [#/Vol] 5.1 10*3/uL Normal 4.0-11.0 [facility] Comment on above: Performed By: #### 1 988-5, CBCA, 05949-6 #### [facility] ([id number]) [address], [address] [place] [address] CRP [Mass/Vol]on 04-10-2024 C REACTIVE PROTEIN 1.2 mg/dL High 0.000-0.744 [facility] Comment on above: Performed By: #### 1 988-5, CBCA, 03111-3 #### [facility] ([id number]) [address], [address] [place] [address] ESR Photometric method (Bld) [Velocity]on 04-10-2024 ESR, ERYTHROCYTE SEDIMENTATION RATE 21 mm/h Normal 0-30 [facility] Comment on above: Performed By: #### 1 988-5, CBCA, 19239-0 #### [facility] ([id number]) [address], [address] [place] [address] CNPNon 04-09-2024 CNPN Normal [facility] HGB A1C (GLYCO-HGB)on 2023 Glucose [Mass/Vol] 134 mg/dL Normal [facility] Comment on above: Performed By: #### T HYR, HA1C #### [facility] ([id number]) [address], [address] [place] [address] HbA1c (Bld) [Mass fraction] 6.3 % High 4.4-5.6 [facility] Comment on above: Result Comment: NOTE ADA Guidelines Result HgbA1c Normal : less than 5.7 % Prediabetes : 5.7 % to 6.4 % Diabetes : > 6.4 % Use with caution in patients with abnormal hemoglobin variants as the half-life of red blood cells and in vivo glycation rates are affected. Performed By: #### SAMUEL DENNIS #### [facility] ([id number]) [address] [place] [address] MICROALBUMIN - ALBUMIN:CREAT ININE URINE RATIOon 04-04-2024 ALB/CREAT RATIO 14.4 mg/g creat Normal 0.0-30.0 [facility] Comment on above: Performed By: #### RED Delgado #### [facility] ([id number]) [address], [address] [address] Albumin DL <= 20 mg/L (U) [Mass/Vol] 1.6 mg/dL Normal 0.0-1.9 [facility] [place] Comment on above: Performed By: #### RED Delgado #### [facility] ([id number]) [address] [place] [address] URINE CREAT 111.21 mg/dL Normal [facility] [place] Comment on above: Performed By: #### RED Delgado #### [facility] [facility] ([id number]) [address] [place] [address] THYROID PROFILEon 04-04-2024 Free T4 [Mass/Vol] 0.80 ng/dL Normal 0.61-1.60 [facility] Comment on above: Performed By: #### SAMUEL DENNIS #### [facility] ([id number]) [address] [address] [place] [address] TSH 0.29 uIU/mL Low 0.49-4.67 [facility] Comment on above: Performed By: #### SAMUEL DENNIS #### [facility] ([id number]) [address] [place] [address] URINALYSISon 04-04-2024 Bilirubin Ql (U) Negative Normal NEG [facility] Comment on above: Performed By: #### RED Delgado #### [facility] ([id number]) [address] [place] [address] BLOOD/HGB Negative Normal NEG [facility] Comment on above: Performed By: #### RED Delgado #### [facility] ([id number]) [address] [place] [address] Color (U) YELLOW Normal YELLOW [facility] Comment on above: Performed By: #### RED Delgado #### [facility] ([id number]) [address] [place] [address] Glucose Ql (U) Negative Normal NEG [facility] Comment on above: Performed By: #### RED Delgado #### [facility] ([id number]) [address] [place] [address] Ketones Ql (U) Negative Normal NEG [facility] Comment on above: Performed By: #### RED Delgado #### [facility] ([id number]) [address] [place] [address] Leukocyte esterase Test strip Ql (U) Negative Normal NEG [facility] Comment on above: Performed By: #### RED Delgado #### [facility] ([id number]) [address] [place] [address] MUCOUS PRESENT Abnormal NONE [facility] Comment on above: Performed By: #### RED Delgado #### [facility] ([id number]) [address] [place] [address] Nitrite Ql (U) Negative Normal NEG [facility] Comment on above: Performed By: #### RED Delgado #### [facility] ([id number]) [address] [place] [address] pH (U) 6.0 [pH] Normal 5.0-8.5 [facility] Comment on above: Performed By: #### Lara Sheikh VIRGINIAPHYLLIS #### [facility] ([id number]) [address] [place] [address] Protein Ql (U) Trace Abnormal NEG [facility] Comment on above: Performed By: #### Lara Sheikh VIRGINIAPHYLLIS #### [facility] ([id number]) [address] [place] [address] R.B.CELLS 1 /hpf Normal 0-5 [facility] Comment on above: Performed By: #### Lara Sheikh VIRGINIAPHYLLIS #### [facility] ([id number]) [address] [place] [address] Specific gravity (U) [Rel density] 1.017 Normal 1.003-1.035 [facility] Comment on above: Performed By: #### Lara Sheikh VIRGINIAPHYLLIS #### [facility] ([id number]) [address] [place] [address] SQUAMOUS EPITHELIUM 6 /hpf High 0-5 [facility] Comment on above: Performed By: #### Lara Sheikh VIRGINIAPHYLLIS #### [facility] ([id number]) [address] [place] [address] TURBIDITY CLEAR Normal CLEAR [facility] Comment on above: Performed By: #### RED Delgado #### [facility] ([id number]) [address] [place] [address] Urobilinogen (U) [Mass/Vol] mg/dL Normal <1.1 [facility] Comment on above: Performed By: #### RED Delgado #### [facility] ([id number]) [address] [place] [address] W.B.CELLS 2 /hpf Normal 0-5 [facility] Comment on above: Performed By: #### U RED Sheikh #### [facility] ([id number]) [address] [place] [address] Urinalysis, manual onlyon Bilirubin Ql (U) Negative Negative [facility] Color (U) YELLOW YELLOW [facility] Epithelial cells Auto (Urine sed) [#/Area] 6 High [facility] Glucose (U) [Mass/Vol] Negative Negat david mg/dL [facility] Hemoglobin Auto test strip Ql (U) Negative Negative [facility] Interpretation and review of laboratory results Abnormal [facility] Ketones (U) [Mass/Vol] Negative Negat david mg/dL [facility] Leukocyte esterase Auto test strip Ql (U) Negative Negative [facility] Mucus Ql (Urine sed) PRESENT Abnormal NONE [facility] Nitrite Auto test strip Ql (U) Negative Negative [facility] pH (U) 6.0 [pH] 5.0 - 8.5 [facility] Protein (U) [Mass/Vol] Trace Abnormal Negat david mg/dL [facility] RBC Auto (Urine sed) [#/Area] 1 [facility] Specific gravity Refractometry automated (U) [Rel density] 1.017 1.003 - 1.035 [facility] Turbidity Ql (U) CLEAR CLEAR [facility] Urobilinogen Qn (U) <1.1 NINF [facility] WBC Auto (Urine sed) [#/Area] 2 [facility] Comment on above: PERFORMED AT [facility] [address],[place] [address] [facility] CBC W Auto Differential pane l (Bld)on 03-05-2024 Basophils (Bld) [#/Vol] 10*3/uL Normal <0.11 [facility] Comment on above: Order Comment: Speci men Type: BLOOD SPECIMENOrdering Facility: [facility] Address: [address] [place] [address] Performed By: #### 5 7021-8 ####[facility] LABCLIA [id number] [place] [address] Basophils/100 WBC (Bld) 0.2 % Normal [facility] Comment on above: Order Comment: Speci men Type: BLOOD SPECIMENOrdering Facility: [facility] Address: [address] [place] [address] Performed By: #### 5 7021-8 ####[facility] LABCLIA [id number] [place] [address] Differential cell count method Nom (Bld) Auto Normal [facility] Comment on above: Order Comment: Speci men Type: BLOOD SPECIMENOrdering Facility: [facility] Address: [address] [place] [address] Performed By: #### 5 7021-8 ####[facility] LABCLIA [id number] [place] [address] Eosinophils (Bld) [#/Vol] 0.06 10*3/uL Normal <0.46 [facility] Comment on above: Order Comment: Speci men Type: BLOOD SPECIMENOrdering Facility: [facility] Address: [address] [place] [address] Performed By: #### 5 7021-8 ####[facility] LABCLIA [id number] [place] [address] Eosinophils/100 WBC (Bld) 1.3 % Normal [facility] Comment on above: Order Comment: Speci men Type: BLOOD SPECIMENOrdering Facility: [facility] Address: [address] [place] [address] Performed By: #### 5 7021-8 ####[facility] LABCLIA [id number] [place] [address] Erythrocyte distribution width (RBC) [Ratio] 14.6 % Normal 11.5-15.0 [facility] Comment on above: Order Comment: Speci men Type: BLOOD SPECIMENOrdering Facility: [facility] Address: [address] [place] [address] Performed By: #### 5 7021-8 ####[facility] LABCLIA [id number] [place] [address] Hematocrit (Bld) [Volume fraction] 31.2 % Low 36.0-46.0 [facility] Comment on above: Order Comment: Speci men Type: BLOOD SPECIMENOrdering Facility: [facility] Address: [address] [place] [address] Performed By: #### 5 7021-8 ####[facility] LABCLIA [id number] [place] [address] Hemoglobin (Bld) [Mass/Vol] 9.9 g/dL Low 11.5-15.5 [facility] Comment on above: Order Comment: Speci men Type: BLOOD SPECIMENOrdering Facility: [facility] Address: [address] [place] [address] Performed By: #### 5 7021-8 ####[facility] LABCLIA [id number] [place] [address] Immature granulocytes (Bld) [#/Vol] 10*3/uL Normal <0.10 [facility] Comment on above: Order Comment: Speci men Type: BLOOD SPECIMENOrdering Facility: [facility] Address: [address] [place] [address] Performed By: #### 5 7021-8 ####[facility] LABCLIA [id number] [place] [address] Immature granulocytes/100 WBC (Bld) 0.0 % Normal [facility] Comment on above: Order Comment: Speci men Type: BLOOD SPECIMENOrdering Facility: [facility] Address: [address] [place] [address] Performed By: #### 5 7021-8 ####[facility] LABCLIA [id number] [place] [address] Lymphocytes (Bld) [#/Vol] 1.68 10*3/uL Normal 1.00-4.00 [facility] Comment on above: Order Comment: Speci men Type: BLOOD SPECIMENOrdering Facility: [facility] Address: [address] [place] [address] Performed By: #### 5 7021-8 ####[facility] LABCLIA [id number] [place] [address] Lymphocytes/100 WBC (Bld) 36.4 % Normal [facility] Comment on above: Order Comment: Speci men Type: BLOOD SPECIMENOrdering Facility: [facility] Address: [address] [place] [address] Performed By: #### 5 7021-8 ####[facility] LABCLIA [id number] [place] [address] MCH (RBC) [Entitic mass] 31.0 pg Normal 26.0-34.0 [facility] Comment on above: Order Comment: Speci men Type: BLOOD SPECIMENOrdering Facility: [facility] Address: [address] [place] [address] Performed By: #### 5 7021-8 ####[facility] LABCLIA [id number] [place] [address] MCHC (RBC) [Mass/Vol] 31.7 g/dL Normal 30.5-36.0 [facility] Comment on above: Order Comment: Speci men Type: BLOOD SPECIMENOrdering Facility: [facility] Address: [address] [place] [address] Performed By: #### 5 7021-8 ####[facility] LABCLIA [id number] [place] [address] MCV (RBC) [Entitic vol] 97.8 fL Normal 80.0-100.0 [facility] Comment on above: Order Comment: Speci men Type: BLOOD SPECIMENOrdering Facility: [facility] Address: [address] [place] [address] Performed By: #### 5 7021-8 ####[facility] LABCLIA [id number] [place] [address] Monocytes (Bld) [#/Vol] 0.22 10*3/uL Normal <0.87 [facility] Comment on above: Order Comment: Speci men Type: BLOOD SPECIMENOrdering Facility: [facility] Address: [address] [place] [address] Performed By: #### 5 7021-8 ####[facility] LABCLIA [id number] [place] [address] Monocytes/100 WBC (Bld) 4.8 % Normal [facility] Comment on above: Order Comment: Speci men Type: BLOOD SPECIMENOrdering Facility: [facility] Address: [address] [place] [address] Performed By: #### 5 7021-8 ####[facility] LABCLIA [id number] [place] [address] Neutrophils (Bld) [#/Vol] 2.65 10*3/uL Normal 1.45-7.50 [facility] Comment on above: Order Comment: Speci men Type: BLOOD SPECIMENOrdering Facility: [facility] Address: [address] [place] [address] Performed By: #### 5 7021-8 ####[facility] LABCLIA [id number] [place] [address] Neutrophils/100 WBC (Bld) 57.3 % Normal [facility] Comment on above: Order Comment: Speci men Type: BLOOD SPECIMENOrdering Facility: [facility] Address: [address] [place] [address] Performed By: #### 5 7021-8 ####[facility] LABCLIA [id number] [place] [address] Nucleated RBC (Bld) [#/Vol] 10*3/uL Normal <0.01 [facility] Comment on above: Order Comment: Speci men Type: BLOOD SPECIMENOrdering Facility: [facility] Address: [address] [place] [address] Performed By: #### 5 7021-8 ####[facility] LABCLIA [id number] [place] [address] Nucleated RBC/100 WBC (Bld) [Ratio] 0.0 /100 WBC Normal [facility] Comment on above: Order Comment: Speci men Type: BLOOD SPECIMENOrdering Facility: [facility] Address: [address] [place] [address] Performed By: #### 5 7021-8 ####[facility] LABCLIA [id number] [place] [address] Platelet mean volume (Bld) [Entitic vol] 9.6 fL Normal 9.0-12.7 [facility] Comment on above: Order Comment: Speci men Type: BLOOD SPECIMENOrdering Facility: [facility] Address: [address] [place] [address] Performed By: #### 5 7021-8 ####[facility] LABIA [id number] [place] [address] Platelets (Bld) [#/Vol] 144 10*3/uL Low 150-400 [facility] Comment on above: Order Comment: Speci men Type: BLOOD SPECIMENOrdering Facility: [facility] Address: [address] [place] [address] Performed By: #### 5 7021-8 ####[facility] LABCLIA [id number] [place] [address] RBC (Bld) [#/Vol] 3.19 10*6/uL Low 3.90-5.20 [facility] Comment on above: Order Comment: Speci men Type: BLOOD SPECIMENOrdering Facility: [facility] Address: [address] [place] [address] Performed By: #### 5 7021-8 ####[facility] LABCLIA [id number] [place] [address] WBC (Bld) [#/Vol] 4.62 10*3/uL Normal 3.70-11.00 [facility] Comment on above: Order Comment: Speci men Type: BLOOD SPECIMENOrdering Facility: [facility] Address: [address] [place] [address] Performed By: #### 5 7021-8 ####[facility] LABCLIA [id number] [place] [address] CNNURSEon 03-05-2024 CNNURSE Normal [facility] CNOVSPon 03-05-2024 CNOVSP Normal [facility] Comprehensive metabolic 2000 panelon 03-05-2024 Albumin [Mass/Vol] 3.9 g/dL Normal 3.9-4.9 [facility] Comment on above: Order Comment: Speci men Type: BLOOD SPECIMENOrdering Facility: [facility] Address: [address] [place] [address] Performed By: #### 2 532-0, 32441-4 ####[facility] LABCLIA [id number] [place] [address] ALP [Catalytic activity/Vol] 71 U/L Normal 34-123 [facility] Comment on above: Order Comment: Speci men Type: BLOOD SPECIMENOrdering Facility: [facility] Address: [address] [place] [address] Performed By: #### 2 532-0, 91430-3 ####[facility] LABCLIA [id number] [place] [address] ALT [Catalytic activity/Vol] 10 U/L Normal 7-38 [facility] Comment on above: Order Comment: Speci men Type: BLOOD SPECIMENOrdering Facility: [facility] Address: [address] [place] [address] Performed By: #### 2 532-0, 07313-7 ####[facility] LABCLIA [id number] [place] [address] Anion gap [Moles/Vol] 8 mmol/L Normal 8-15 [facility] Comment on above: Order Comment: Speci men Type: BLOOD SPECIMENOrdering Facility: [facility] Address: [address] [id number] Performed By: #### 2 532-0, 78689-6 ####[facility] LABCLIA [id number] [place] [address] AST [Catalytic activity/Vol] 18 U/L Normal 13-35 [facility] Comment on above: Order Comment: Speci men Type: BLOOD SPECIMENOrdering Facility: [facility] Address: [address] [id number] Performed By: #### 2 532-0, ####[facility] LABIA [id number] [place] [address] Bilirubin [Mass/Vol] 0.7 mg/dL Normal 0.2-1.3 [facility] Comment on above: Order Comment: Speci men Type: BLOOD SPECIMENOrdering Facility: [facility] Address: [address] [place] [address] Performed By: #### 2 532-0, 09043-3 ####[facility] LABIA [id number] [place] [address] Calcium [Mass/Vol] 9.4 mg/dL Normal 8.5-10.2 [facility] Comment on above: Order Comment: Speci men Type: BLOOD SPECIMENOrdering Facility: [facility] Address: [address] [place] [address] Performed By: #### 2 532-0, 73733-9 ####[facility] LABIA [id number] [place] [address] Chloride [Moles/Vol] 106 mmol/L Normal 98-107 [facility] Comment on above: Order Comment: Speci men Type: BLOOD SPECIMENOrdering Facility: [facility] Address: [address] [place], [place] [address] Performed By: #### 2 532-0, 33977-0 ####[facility] LABCLIA [id number] [place] [address] CO2 [Moles/Vol] 26 mmol/L Normal 22-30 [facility] Comment on above: Order Comment: Speci men Type: BLOOD SPECIMENOrdering Facility: [facility] Address: [address] [place] [address] Performed By: #### 2 532-0, ####[facility] LABCLIA [id number] [place] [address] Creatinine [Mass/Vol] 1.14 mg/dL High 0.58-0.96 [facility] Comment on above: Order Comment: Speci men Type: BLOOD SPECIMENOrdering Facility: [facility] Address: [address] [place] [address] Performed By: #### 2 532-0, 67041-1 ####[facility] LABCLIA [id number] [place] [address] Creatinine and Glomerular filtration rate.predicted panel (S/P/Bld) 51 mL/min/1.73m??? Low >=60 [facility] Comment on above: Order Comment: Speci men Type: BLOOD SPECIMENOrdering Facility: [facility] Address: [address] [place] [address] Result Comment: Miryam mated Glomerular Filtration Rate [...] actual GFR. Performed By: #### 2 532-0, 40685-7 ####[facility] LABCLIA [id number] [place] [address] Glucose [Mass/Vol] 148 mg/dL High 74-99 [facility] Comment on above: Order Comment: Speci men Type: BLOOD SPECIMENOrdering Facility: [facility] Address: [address] [place], [place] [address] Result Comment: The [place] [employer] (ADA) provides guidance for cutoff [...] Standards of Medical Care in Diabetes 2016, [place] [employer]. Diabetes Care. 2016.39(Suppl 1). Performed By: #### 2 532-0, 07715-3 ####[facility] LABCLIA [id number] [place] [address] Potassium [Moles/Vol] 4.7 mmol/L Normal 3.7-5.1 [facility] Comment on above: Order Comment: Speci men Type: BLOOD SPECIMENOrdering Facility: [facility] Address: [address] [place] [address] Performed By: #### 2 532-0, 33655-1 ####[facility] LABCLIA [id number] [place] [address] Protein [Mass/Vol] 7.0 g/dL Normal 6.3-8.0 [facility] Comment on above: Order Comment: Speci men Type: BLOOD SPECIMENOrdering Facility: [facility] Address: [address] [place] [address] Performed By: #### 2 532-0, ####[facility] LABCLIA [id number] [place] [address] Sodium [Moles/Vol] 140 mmol/L Normal 136-144 [facility] Comment on above: Order Comment: Speci men Type: BLOOD SPECIMENOrdering Facility: [facility] Address: [address] [place] [address] Performed By: #### 2 532-0, 97554-5 ####[facility] LABCLIA [id number] [place] [address] Urea nitrogen [Mass/Vol] 27 mg/dL High 7-21 [facility] Comment on above: Order Comment: Speci men Type: BLOOD SPECIMENOrdering Facility: [facility] Address: [address] [place] [address] Performed By: #### 2 532-0, 71586-5 ####[facility] LABCLIA [id number] [place] [address] LDH SerPl-cCncon 03-05-2024 LDH [Catalytic activity/Vol] 207 U/L Normal 135-214 [facility] Comment on above: Order Comment: Speci men Type: BLOOD SPECIMENOrdering Facility: [facility] Address: [address] [place] [address] Performed By: #### 2 532-0, 98805-3 ####[facility] LABIA [id number] [place] [address] CBC W Auto Differential pane l (Bld)on 02-02-2024 Basophils (Bld) [#/Vol] 10*3/uL Normal <0.11 [facility] Comment on above: Order Comment: Speci men Type: BLOOD SPECIMENOrdering Facility: [facility] Address: [address] [place] [address] Performed By: #### 5 7021-8 ####[facility] LABIA [id number] [place] [address] Basophils/100 WBC (Bld) 0.2 % Normal [facility] Comment on above: Order Comment: Speci men Type: BLOOD SPECIMENOrdering Facility: [facility] Address: [address] [place] [address] Performed By: #### 5 7021-8 ####[facility] LABCLIA [id number] [place] [address] Differential cell count method Nom (Bld) Auto Normal [facility] Comment on above: Order Comment: Speci men Type: BLOOD SPECIMENOrdering Facility: [facility] Address: [address] [place] [address] Performed By: #### 5 7021-8 ####[facility] LABCLIA [id number] [place] [address] Eosinophils (Bld) [#/Vol] 0.05 10*3/uL Normal <0.46 [facility] Comment on above: Order Comment: Speci men Type: BLOOD SPECIMENOrdering Facility: [facility] Address: [address] [place] [address] Performed By: #### 5 7021-8 ####[facility] LABCLIA [id number] [place] [address] Eosinophils/100 WBC (Bld) 0.9 % Normal [facility] Comment on above: Order Comment: Speci men Type: BLOOD SPECIMENOrdering Facility: [facility] Address: [address] [place] [address] Performed By: #### 5 7021-8 ####[facility] LABCLIA [id number] [place] [address] Erythrocyte distribution width (RBC) [Ratio] 14.0 % Normal 11.5-15.0 [facility] Comment on above: Order Comment: Speci men Type: BLOOD SPECIMENOrdering Facility: [facility] Address: [address] [place] [address] Performed By: #### 5 7021-8 ####[facility] LABCLIA [id number] [place] [address] Hematocrit (Bld) [Volume fraction] 32.6 % Low 36.0-46.0 [facility] Comment on above: Order Comment: Speci men Type: BLOOD SPECIMENOrdering Facility: [facility] Address: [address] [place] [address] Performed By: #### 5 7021-8 ####[facility] LABCLIA [id number] [place] [address] Hemoglobin (Bld) [Mass/Vol] 10.3 g/dL Low 11.5-15.5 [facility] Comment on above: Order Comment: Speci men Type: BLOOD SPECIMENOrdering Facility: [facility] Address: [address] [place] [address] Performed By: #### 5 7021-8 ####[facility] LABCLIA [id number] [place] [address] Immature granulocytes (Bld) [#/Vol] 10*3/uL Normal <0.10 [facility] Comment on above: Order Comment: Speci men Type: BLOOD SPECIMENOrdering Facility: [facility] Address: [address] [place] [address] Performed By: #### 5 7021-8 ####[facility] LABCLIA [id number] [place] [address] Immature granulocytes/100 WBC (Bld) 0.2 % Normal [facility] Comment on above: Order Comment: Speci men Type: BLOOD SPECIMENOrdering Facility: [facility] Address: [address] [place] [address] Performed By: #### 5 7021-8 ####[facility] LABCLIA [id number] [place] [address] Lymphocytes (Bld) [#/Vol] 2.34 10*3/uL Normal 1.00-4.00 [facility] Comment on above: Order Comment: Speci men Type: BLOOD SPECIMENOrdering Facility: [facility] Address: [address] [place] [address] Performed By: #### 5 7021-8 ####[facility] LABCLIA [id number] [place] [address] Lymphocytes/100 WBC (Bld) 42.2 % Normal [facility] Comment on above: Order Comment: Speci men Type: BLOOD SPECIMENOrdering Facility: [facility] Address: [address] [place] [address] Performed By: #### 5 7021-8 ####[facility] LABCLIA [id number] [place] [address] MCH (RBC) [Entitic mass] 31.3 pg Normal 26.0-34.0 [facility] Comment on above: Order Comment: Speci men Type: BLOOD SPECIMENOrdering Facility: [facility] Address: [address] [place] [address] Performed By: #### 5 7021-8 ####[facility] LABCLIA [id number] [place] [address] MCHC (RBC) [Mass/Vol] 31.6 g/dL Normal 30.5-36.0 [facility] Comment on above: Order Comment: Speci men Type: BLOOD SPECIMENOrdering Facility: [facility] Address: [address] [place] [address] Performed By: #### 5 7021-8 ####[facility] LABCLIA [id number] [place] [address] MCV (RBC) [Entitic vol] 99.1 fL Normal 80.0-100.0 [facility] Comment on above: Order Comment: Speci men Type: BLOOD SPECIMENOrdering Facility: [facility] Address: [address] [place] [address] Performed By: #### 5 7021-8 ####[facility] LABCLIA [id number] [place] [address] Monocytes (Bld) [#/Vol] 0.23 10*3/uL Normal <0.87 [facility] Comment on above: Order Comment: Speci men Type: BLOOD SPECIMENOrdering Facility: [facility] Address: [address] [place] [address] Performed By: #### 5 7021-8 ####[facility] LABCLIA [id number] [place] [address] Monocytes/100 WBC (Bld) 4.2 % Normal C [facility] Comment on above: Order Comment: Speci men Type: BLOOD SPECIMENOrdering Facility: [facility] Address: [address] [place] [address] Performed By: #### 5 7021-8 ####[facility] LABCLIA [id number] [place] [address] Neutrophils (Bld) [#/Vol] 2.90 10*3/uL Normal 1.45-7.50 [facility] Comment on above: Order Comment: Speci men Type: BLOOD SPECIMENOrdering Facility: [facility] Address: [address] [place] [address] Performed By: #### 5 7021-8 ####[facility] LABCLIA [id number] [place] [address] Neutrophils/100 WBC (Bld) 52.3 % Normal [facility] Comment on above: Order Comment: Speci men Type: BLOOD SPECIMENOrdering Facility: [facility] Address: [address] [place] [address] Performed By: #### 5 7021-8 ####[facility] LABCLIA [id number] [place] [address] Nucleated RBC (Bld) [#/Vol] 10*3/uL Normal <0.01 [facility] Comment on above: Order Comment: Speci men Type: BLOOD SPECIMENOrdering Facility: [facility] Address: [address] [place] [address] Performed By: #### 5 7021-8 ####[facility] LABCLIA [id number] [place] [address] Nucleated RBC/100 WBC (Bld) [Ratio] 0.0 /100 WBC Normal [facility] Comment on above: Order Comment: Speci men Type: BLOOD SPECIMENOrdering Facility: [facility] Address: [address] [place] [address] Performed By: #### 5 7021-8 ####[facility] LABCLIA [id number] [place] [address] Platelet mean volume (Bld) [Entitic vol] 9.1 fL Normal 9.0-12.7 [facility] Comment on above: Order Comment: Speci men Type: BLOOD SPECIMENOrdering Facility: [facility] Address: [address] [place] [address] Performed By: #### 5 7021-8 ####[facility] LABCLIA [id number] [place] [address] Platelets (Bld) [#/Vol] 148 10*3/uL Low 150-400 [facility] Comment on above: Order Comment: Speci men Type: BLOOD SPECIMENOrdering Facility: [facility] Address: [address] [place] [address] Performed By: #### 5 7021-8 ####[facility] LABCLIA [id number] [place] [address] RBC (Bld) [#/Vol] 3.29 10*6/uL Low 3.90-5.20 [facility] Comment on above: Order Comment: Speci men Type: BLOOD SPECIMENOrdering Facility: [facility] Address: [address] [place] [address] Performed By: #### 5 7021-8 ####[facility] LABCLIA [id number] [place] [address] WBC (Bld) [#/Vol] 5.54 10*3/uL Normal 3.70-11.00 [facility] Comment on above: Order Comment: Speci men Type: BLOOD SPECIMENOrdering Facility: [facility] Address: [address] [place] [address] Performed By: #### 5 7021-8 ####[facility] LABCLIA [id number] [place] [address] CNOVSPon 02-02-2024 CNOVSP Normal [facility] metabolic 2000 panelon 02-02-2024 Albumin [Mass/Vol] 3.8 g/dL Low 3.9-4.9 [facility] Comment on above: Order Comment: Speci men Type: BLOOD SPECIMENOrdering Facility: [facility] Address: [address] [place] [address] Performed By: #### 2 4323-8 ####[facility] LABCLIA [id number] [place] [address] ALP [Catalytic activity/Vol] 71 U/L Normal 34-123 [facility] Comment on above: Order Comment: Speci men Type: BLOOD SPECIMENOrdering Facility: [facility] Address: [address] [place] [address] Performed By: #### 2 4323-8 ####[facility] LABCLIA [id number] [place] [address] ALT [Catalytic activity/Vol] 14 U/L Normal 7-38 [facility] Comment on above: Order Comment: Speci men Type: BLOOD SPECIMENOrdering Facility: [facility] Address: [address] [place] [address] Performed By: #### 2 4323-8 ####[facility] LABCLIA [id number] [place] [address] Anion gap [Moles/Vol] 9 mmol/L Normal 8-15 [facility] Comment on above: Order Comment: Speci men Type: BLOOD SPECIMENOrdering Facility: [facility] Address: [address] [place] [address] Performed By: #### 2 4323-8 ####[facility] LABCLIA [id number] [place] [address] AST [Catalytic activity/Vol] 21 U/L Normal 13-35 [facility] Comment on above: Order Comment: Speci men Type: BLOOD SPECIMENOrdering Facility: [facility] Address: [address] [place] [address] Performed By: #### 2 4323-8 ####[facility] LABCLIA [id number] [place] [address] Bilirubin [Mass/Vol] 0.3 mg/dL Normal 0.2-1.3 [facility] Comment on above: Order Comment: Speci men Type: BLOOD SPECIMENOrdering Facility: [facility] Address: [address] [place] [address] Performed By: #### 2 4323-8 ####[facility] LABCLIA [id number] [place] [address] Calcium [Mass/Vol] 9.5 mg/dL Normal 8.5-10.2 [facility] Comment on above: Order Comment: Speci men Type: BLOOD SPECIMENOrdering Facility: [facility] Address: [address] [place] [address] Performed By: #### 2 4323-8 ####[facility] LABCLIA [id number] [place] [address] Chloride [Moles/Vol] 110 mmol/L High 98-107 [facility] Comment on above: Order Comment: Speci men Type: BLOOD SPECIMENOrdering Facility: [facility] Address: [address] [place] [address] Performed By: #### 2 4323-8 ####[facility] LABCLIA [id number] [place] [address] CO2 [Moles/Vol] 23 mmol/L Normal 22-30 [facility] Comment on above: Order Comment: Speci men Type: BLOOD SPECIMENOrdering Facility: [facility] Address: [address] [place] [address] Performed By: #### 2 4323-8 ####[facility] LABCLIA [id number] [place] [address] Creatinine [Mass/Vol] 1.14 mg/dL High 0.58-0.96 [facility] Comment on above: Order Comment: Fabricio tapia Type: BLOOD SPECIMENOrdering Facility: [facility] Address: [address] [place], [place] [address] Performed By: #### 2 4323-8 ####[facility] LABCLIA [id number] [place] [address] Creatinine and Glomerular filtration rate.predicted panel (S/P/Bld) 51 mL/min/1.73m??? Low >=60 [facility] Comment on above: Order Comment: Fabricio tapia Type: BLOOD SPECIMENOrdering Facility: [facility] Address: [address] [place] [address] Result Comment: Miryam mated Glomerular Filtration Rate [...] actual GFR. Performed By: #### 2 4323-8 ####[facility] LABCLIA [id number] [place] [address] Glucose [Mass/Vol] 140 mg/dL High 74-99 [facility] Comment on above: Order Comment: Fabricio tapia Type: BLOOD SPECIMENOrdering Facility: [facility] Address: [address] [place], [place] [address] Result Comment: The [place] [employer] Association (ADA) provides guidance for cutoff [...] Standards of Medical Care in Diabetes 2016, [place] [employer]. Diabetes Care. 2016.39(Suppl 1). Performed By: #### 2 4323-8 ####[facility] LABCLIA [id number] [place] [address] Potassium [Moles/Vol] 4.8 mmol/L Normal 3.7-5.1 [facility] Comment on above: Order Comment: Speci men Type: BLOOD SPECIMENOrdering Facility: [facility] Address: [address] [place] [address] Performed By: #### 2 4323-8 ####[facility] LABCLIA [id number] [place] [address] Protein [Mass/Vol] 7.3 g/dL Normal 6.3-8.0 [facility] Comment on above: Order Comment: Speci men Type: BLOOD SPECIMENOrdering Facility: [facility] Address: [address] [place] [address] Performed By: #### 2 4323-8 ####[facility] LABCLIA [id number] [place] [address] Sodium [Moles/Vol] 142 mmol/L Normal 136-144 [facility] Comment on above: Order Comment: Speci men Type: BLOOD SPECIMENOrdering Facility: [facility] Address: [address] [place] [address] Performed By: #### 2 4323-8 ####[facility] LABCLIA [id number] [place] [address] Urea nitrogen [Mass/Vol] 35 mg/dL High 7-21 [facility] Comment on above: Order Comment: Speci men Type: BLOOD SPECIMENOrdering Facility: [facility] Address: [address] [place] [address] Performed By: #### 2 4323-8 ####[facility] LABCLIA [id number] [place] [address] [address] Ferritin [Mass/Vol] 76.8 ng/mL Normal 14.7-205.1 [facility] Comment on above: Order Comment: Speci men Type: BLOOD SPECIMENOrdering Facility: [facility] Address: [address] [place] [address] Performed By: #### 2 132-9, 50168-9, 2284-8, 6-4 ####[facility] LABCLIA [id number] [place] [address] [place] Folate SerPl-[facility] 02-02-20 24 Folate [Mass/Vol] 9.3 ng/mL Normal >4.7 [facility] Comment on above: Order Comment: Speci men Type: BLOOD SPECIMENOrdering Facility: [facility] Address: [address] [place] [address] Performed By: #### 2 132-9, 88318-2, 4-8, 6-4 ####[facility] LABCLIA [id number] [place] [address] [place] Iron and Iron binding capaci [facility] 02-02-2024 Iron [Mass/Vol] 56 ug/dL Normal 41-186 [facility] Comment on above: Order Comment: Speci men Type: BLOOD SPECIMENOrdering Facility: [facility] Address: [address] [place] [address] Performed By: #### 2 132-9, 43315-2, 4-8, 6-4 ####[facility] LABCLIA [id number] [place] [address] [place] Iron binding capacity [Mass/Vol] 363 ug/dL Normal 232-386 [facility] Comment on above: Order Comment: Speci men Type: BLOOD SPECIMENOrdering Facility: [facility] Address: [address] [place] [address] Performed By: #### 2 132-9, 11279-9, 2284-8, 6-4 ####[facility] LABCLIA [id number] [address] [address] [place] Iron/TIBC [Molar ratio] 15.4 % Normal 15.0-57.0 [facility] Comment on above: Order Comment: Speci men Type: BLOOD SPECIMENOrdering Facility: [facility] Address: [address] [place] [address] Performed By: #### 2 132-9, 31751-6, 2284-8, 6-4 ####[facility] LABCLIA [id number] [address] [address] [place] Vit B12 [facility] 07-26-2 024 Cobalamin (Vitamin B12) [Mass/Vol] 471 pg/mL Normal 232-1245 [facility] Comment on above: Order Comment: Speci men Type: BLOOD SPECIMENOrdering Facility: [facility] Address: [address] [place] [address] Performed By: #### 2 132-9, 67719-9, 2284-8, 6-4 ####[facility] LABIA [id number] [place] [id number] [place] Surgical pathology studyon 0 12-18-2023 Surgical pathology study Pathology report.total SEE COMMENT Surgical Pathology Case: [id number] Authorizing Provider: Susanna Graf MD Collected: 12/18/2023 1023 Ordering Location: [facility] OR Received: 12/18/2023 1254 Pathologist: Abebe [...] following decalcification. MJR Gross dissection performed at: [facility] Department of Pathology [address] 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 COMPARISON: None. ACCESSION NUMBER(S): [id number] ORDERING CLINICIAN: SUSANNA GRAF TECHNIQUE: Noncontrast CT [...] INDICATION: Signs/Symptoms:cholest eatoma. COMPARISON: None. ACCESSION NUMBER(S): [id number] ORDERING CLINICIAN: SUSANNA GRAF TECHNIQUE: Noncontrast CT [...] Tiffani Villagomez 11/14/2023 3:18 PM Dictation workstation: [id number] [facility] Work Phone: Radiology Study observation (narrative) [facility] Work Phone: CT Internal auditory canal W O contrastOrdered By: Tiffani Villagomez on 11-14-2023 [facility] Work Phone: Auditory function testson Right Ear: Mild sensorineural hearing loss from 250 Hz - 500 Hz. 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 Severe mixed hearing loss above 3K Hz [facility] Dipstick [employer] Microscopicon Dipstick & Microscopic No [facility] [employer] Other Dipstick [employer] Micro[employer] 1 08-29-2022 Appearance (U) Clear Normal Clear [facility] Comment on above: Order Comment: Reaso n for Exam HTN (hypertension);Lupus;Chronic ITP (idiopathic thrombocyto Name Collection Type:: Clean-Voided Midstream Performed By: #### A DDONUAPLUS #### [address] Bacteria,Urine None Seen Normal None Seen [facility] Comment on above: Order Comment: Reaso n for Exam HTN (hypertension);Lupus;Chronic ITP (idiopathic thrombocyto Name Collection Type:: Clean-Voided Midstream Performed By: #### A DDONUAPLUS #### [address] Bilirubin,Urine Negative Normal Negative [facility] Comment on above: Order Comment: Reaso n for Exam HTN (hypertension);Lupus;Chronic ITP (idiopathic thrombocyto Name Collection Type:: Clean-Voided Midstream Performed By: #### A DDONUAPLUS #### [place] [id number] [place] Color (U) Yellow Normal Yellow [facility] Comment on above: Order Comment: Reaso n for Exam HTN (hypertension);Lupus;Chronic ITP (idiopathic thrombocyto Name Collection Type:: Clean-Voided Midstream Performed By: #### A DDONUAPLUS #### [place] [address] [place] Glucose Ql (U) Normal Normal Normal [facility] Comment on above: Order Comment: Reaso n for Exam HTN (hypertension);Lupus;Chronic ITP (idiopathic thrombocyto Name Collection Type:: Clean-Voided Midstream Performed By: #### A DDONUAPLUS #### [place] [address] [place] Hyaline Casts,Urine 0-8 Normal 0-8 [facility] Comment on above: Order Comment: Reaso n for Exam HTN (hypertension);Lupus;Chronic ITP (idiopathic thrombocyto Name Collection Type:: Clean-Voided Midstream Result Comment: PERF ORMED BY: [place] [address] PATHOLOGIST [facility] IVORY BORRERO M.D. Performed By: #### A DDONUAPLUS #### [address] Ketones Ql (U) Negative Normal Negative [facility] Comment on above: Order Comment: Reaso n for Exam HTN (hypertension);Lupus;Chronic ITP (idiopathic thrombocyto Name Collection Type:: Clean-Voided Midstream Performed By: #### A DDONUAPLUS #### [address] Leukocyte esterase Test strip Ql (U) Negative Normal Negative [facility] Comment on above: Order Comment: Reaso n for Exam HTN (hypertension);Lupus;Chronic ITP (idiopathic thrombocyto Name Collection Type:: Clean-Voided Midstream Performed By: #### A DDONUAPLUS #### [place] [address] [place] Nitrite,Urine Negative Normal Negative [facility] Comment on above: Order Comment: Reaso n for Exam HTN (hypertension);Lupus;Chronic ITP (idiopathic thrombocyto Name Collection Type:: Clean-Voided Midstream Performed By: #### A DDONUAPLUS #### [place] [address] [place] Occult Blood,Urine Negative Normal Negative [facility] Comment on above: Order Comment: Reaso n for Exam HTN (hypertension);Lupus;Chronic ITP (idiopathic thrombocyto Name Collection Type:: Clean-Voided Midstream Performed By: #### A DDONUAPLUS #### [place] [address] [place] pH (U) 5.5 [pH] Normal 5.0-9.0 [facility] Comment on above: Order Comment: Reaso n for Exam HTN (hypertension);Lupus;Chronic ITP (idiopathic thrombocyto Name Collection Type:: Clean-Voided Midstream Performed By: #### A DDONUAPLUS #### [place] [address] [place] Protein,Urine Negative Normal Negative [facility] Comment on above: Order Comment: Reaso n for Exam HTN (hypertension);Lupus;Chronic ITP (idiopathic thrombocyto Name Collection Type:: Clean-Voided Midstream Performed By: #### A DDONUAPLUS #### [place] [address] [place] RBC,Urine 3-4 Normal 0-4 [facility] Comment on above: Order Comment: Reaso n for Exam HTN (hypertension);Lupus;Chronic ITP (idiopathic thrombocyto Name Collection Type:: Clean-Voided Midstream Performed By: #### A DDONUAPLUS #### [place] [address] [place] Specificy [place],Urine 1.019 Normal 1.001-1.030 [facility] Comment on above: Order Comment: Reaso n for Exam HTN (hypertension);Lupus;Chronic ITP (idiopathic thrombocyto Name Collection Type:: Clean-Voided Midstream Performed By: #### A DDONUAPLUS #### [place] [address] [place] Squamous Epithelial Cell,Urine 3-4 High 0-2 [facility] Comment on above: Order Comment: Reaso n for Exam HTN (hypertension);Lupus;Chronic ITP (idiopathic thrombocyto Name Collection Type:: Clean-Voided Midstream Performed By: #### A DDONUAPLUS #### [place] [address] [place] Urobilinogen,Urine Normal Normal Normal [facility] Comment on above: Order Comment: Reaso n for Exam HTN (hypertension);Lupus;Chronic ITP (idiopathic thrombocyto Name Collection Type:: Clean-Voided Midstream Performed By: #### A DDONUAPLUS #### [place] [address] [place] WBC LM.HPF (Urine sed) [#/Area] 0 /[HPF] Normal 0-4 [facility] Comment on above: Order Comment: Reaso n for Exam HTN (hypertension);Lupus;Chronic ITP (idiopathic thrombocyto Name Collection Type:: Clean-Voided Midstream Performed By: #### A DDONUAPLUS #### [facility] [address] [place] [id number] [facility] Ferritinon 06-28-2023 Ferritin [Mass/Vol] 51.3846848 ng/mL Normal 11.0 -306.8 ng/mL [place] Other Ferritin [Mass/Vol] 51.6 ng/mL Normal 11.0-306.8 [facility] Comment on above: Order Comment: Reaso n for Exam HTN (hypertension);Lupus;Chronic ITP (idiopathic thrombocyto Performed By: #### F ER, PROCRERAT, PTH, URIC, CBCNO, RENAL, MG, [id number] #### [facility] [address] [place] [id number] [facility] Hemogram CBC Without Diffon 06-28-2023 Erythrocyte distribution width (RBC) [Ratio] 15.200 % Normal 11.9-15.3 % [place] Other Hematocrit (Bld) [Volume fraction] 32.300 % Low 34.0-46.4 % [place] Other Hemoglobin (Bld) [Mass/Vol] 10.032162 g/dL Low 11.8-15.4 g/dL [place] Other MCH (RBC) [Entitic mass] 31.8000 pg Normal 24.7-34.3 pg [place] Other MCV (RBC) [Entitic vol] 96.6000 fL Normal 80-100 fL N [place] Other Platelet mean volume (Bld) [Entitic vol] 8.3000 fL Normal 6.3-10.7 fL [place] Other WBC (Bld) [#/Vol] 4.732515942 10*3/uL Normal 3.8 -11.6 10*3/uL [place] Other Hemogram CBC Without Diff 32.9 g/dL Normal 32.0-35.0 g/dL [place] Other Erythrocyte distribution width (RBC) [Ratio] 15.2 % Normal 11.9-15.3 [facility] Comment on above: Order Comment: Reaso n for Exam HTN (hypertension);Lupus;Chronic ITP (idiopathic thrombocyto Performed By: #### F ER, PROCRERAT, PTH, URIC, CBCNO, RENAL, MG, [id number] #### [address] Hematocrit (Bld) [Volume fraction] 32.3 % Low 34.0-46.4 [facility] Comment on above: Order Comment: Reaso n for Exam HTN (hypertension);Lupus;Chronic ITP (idiopathic thrombocyto Performed By: #### F ER, PROCRERAT, PTH, URIC, CBCNO, RENAL, MG, [id number] #### [address] Hemoglobin (Bld) [Mass/Vol] 10.6 g/dL Low 11.8-15.4 [facility] Comment on above: Order Comment: Reaso n for Exam HTN (hypertension);Lupus;Chronic ITP (idiopathic thrombocyto Performed By: #### F ER, PROCRERAT, PTH, URIC, CBCNO, RENAL, MG, [id number] #### [address] MCH (RBC) [Entitic mass] 31.8 pg Normal 24.7-34.3 [facility] Comment on above: Order Comment: Reaso n for Exam HTN (hypertension);Lupus;Chronic ITP (idiopathic thrombocyto Performed By: #### F ER, PROCRERAT, PTH, URIC, CBCNO, RENAL, MG, [id number] #### [address] MCV (RBC) [Entitic vol] 96.6 fL Normal 80-100 T [facility] Comment on above: Order Comment: Reaso n for Exam HTN (hypertension);Lupus;Chronic ITP (idiopathic thrombocyto Performed By: #### F ER, PROCRERAT, PTH, URIC, CBCNO, RENAL, MG, [id number] #### [facility] [address] Mean Corpuscular HGB Conc 32.9 g/dL Normal 32.0-35.0 [facility] Comment on above: Order Comment: Reaso n for Exam HTN (hypertension);Lupus;Chronic ITP (idiopathic thrombocyto Performed By: #### F ER, PROCRERAT, PTH, URIC, CBCNO, RENAL, MG, [id number] #### [facility] [address] Platelet mean volume (Bld) [Entitic vol] 8.3 fL Normal 6.3-10.7 [facility] Comment on above: Order Comment: Reaso n for Exam HTN (hypertension);Lupus;Chronic ITP (idiopathic thrombocyto Result Comment: PERF ORMED BY: [place] [address] PATHOLOGIST [facility] IVORY BORRERO M.D. Performed By: #### F ER, PROCRERAT, PTH, URIC, CBCNO, RENAL, MG, [id number] #### [address] Platelets (Bld) [#/Vol] 161 10*3/uL Normal 150-450 [place] Other Comment on above: Order Comment: Reaso n for Exam HTN (hypertension);Lupus;Chronic ITP (idiopathic thrombocyto Performed By: #### F ER, PROCRERAT, PTH, URIC, CBCNO, RENAL, MG, [id number] #### [address] RBC (Bld) [#/Vol] 3.34 10*6/uL Low 3.60-5.00 [place] Other Comment on above: Order Comment: Reaso n for Exam HTN (hypertension);Lupus;Chronic ITP (idiopathic thrombocyto Performed By: #### F ER, PROCRERAT, PTH, URIC, CBCNO, RENAL, MG, [id number] #### [facility] [address] WBC (Bld) [#/Vol] 4.7 10*3/uL Normal 3.8-11.6 [facility] Comment on above: Order Comment: Reaso n for Exam HTN (hypertension);Lupus;Chronic ITP (idiopathic thrombocyto Performed By: #### F ER, PROCRERAT, PTH, URIC, CBCNO, RENAL, MG, [id number] #### [facility] [address] [place] [address] [facility] Magnesiumon 06-28-2023 Magnesium [Mass/Vol] 2.2775919 mg/dL Normal 1.9- 2.7 mg/dL [facility] Other Magnesium [Mass/Vol] 2.5 mg/dL Normal 1.9-2.7 [facility] Comment on above: Order Comment: Reaso n for Exam HTN (hypertension);Lupus;Chronic ITP (idiopathic thrombocyto Performed By: #### F ER, PROCRERAT, PTH, URIC, CBCNO, RENAL, MG, [id number] #### [facility] [address] [place] [id number] [facility] Parathyroid Hormone [place] 06-28-2023 Parathyroid Hormone Intact 41.9 pg/mL Normal 12-88 pg/mL [facility] Other Parathyroid Hormone Intact 41.9 pg/mL Normal 12-88 [facility] Comment on above: Order Comment: Reaso n for Exam HTN (hypertension);Lupus;Chronic ITP (idiopathic thrombocyto Result Comment: PERF ORMED BY: [place] [address] PATHOLOGIST CHIEF OF HOSPITAL MEDICINE IVORY BORRERO M.D. Performed By: #### F ER, PROCRERAT, PTH, URIC, CBCNO, RENAL, MG, [id number] #### [facility] [address] [place] [id number] [facility] Protein Creat Ratio Ur Rando mon 06-28-2023 Albumin Test strip detection limit <= 20 mg/L (U) [Mass/Vol] 9 mg/dL Normal 0-9 mg/dL [place] Other Protein Creat Ratio Ur Random 96.0 mg/dL High 11.0-20.0 mg/dL [place] Other Protein Creat Ratio Ur Random 94 mg/g{Cre} Normal 0-200 mg/g{Cre} [place] Other Creatinine, Urine (Random) 96.0 mg/dL High 11.0-20.0 [facility] Comment on above: Order Comment: Reaso n for Exam HTN (hypertension);Lupus;Chronic ITP (idiopathic thrombocyto Performed By: #### F ER, PROCRERAT, PTH, URIC, CBCNO, RENAL, MG, [id number] #### [facility] [address] [place] [id number] [facility] Protein (U) [Mass/Vol] 9 mg/dL Normal 0-9 [facility] Comment on above: Order Comment: Reaso n for Exam HTN (hypertension);Lupus;Chronic ITP (idiopathic thrombocyto Performed By: #### F ER, PROCRERAT, PTH, URIC, CBCNO, RENAL, MG, [id number] #### [facility] [address] [place] [id number] [facility] Urine Protein/Creatinine Ratio 94 mg/g{Cre} Normal 0-200 [facility] Comment on above: Order Comment: Reaso n for Exam HTN (hypertension);Lupus;Chronic ITP (idiopathic thrombocyto Result Comment: PERF ORMED BY: [place] [address] PATHOLOGIST CHIEF OF HOSPITAL MEDICINE IVORY BORRERO M.D. Performed By: #### F ER, PROCRERAT, PTH, URIC, CBCNO, RENAL, MG, [id number] #### [place] [id number] [facility] Renal Function Panelon 06-28 Albumin [Mass/Vol] 3.148819 g/dL Normal 3.5-5.7 g/dL [facility] Other Calcium [Mass/Vol] 9.8193288 mg/dL Normal 8.6-10 .3 mg/dL [place] Other CO2 [Moles/Vol] 26.88941144 mmol/L Normal 21.0-3 1.0 mmol/L [place] Other Creatinine [Mass/Vol] 1.83346362 mg/dL Normal 0. 60-1.20 mg/dL [place] Other Phosphate [Mass/Vol] 3.7093185 mg/dL Normal 2.5- 4.5 mg/dL [place] Other Potassium [Moles/Vol] 4.72914307 mmol/L Normal 3 .5-5.1 mmol/L [place] Other Albumin [Mass/Vol] 3.7 g/dL Normal 3.5-5.7 [facility] Comment on above: Order Comment: Reaso n for Exam HTN (hypertension);Lupus;Chronic ITP (idiopathic thrombocyto Performed By: #### F ER, PROCRERAT, PTH, URIC, CBCNO, RENAL, MG, [id number] #### [facility] [address] Anion gap [Moles/Vol] 10.5 mmol/L Normal 6.0-15.0 [facility] Comment on above: Order Comment: Reaso n for Exam HTN (hypertension);Lupus;Chronic ITP (idiopathic thrombocyto Performed By: #### F ER, PROCRERAT, PTH, URIC, CBCNO, RENAL, MG, [id number] #### [facility] [address] [place] [id number] [facility] Calcium [Mass/Vol] 9.2 mg/dL Normal 8.6-10.3 [facility] Comment on above: Order Comment: Reaso n for Exam HTN (hypertension);Lupus;Chronic ITP (idiopathic thrombocyto Performed By: #### F ER, PROCRERAT, PTH, URIC, CBCNO, RENAL, MG, [id number] #### [facility] [address] [place] [address] [place] Chloride [Moles/Vol] 108 mmol/L High 98-107 [employer] Other Comment on above: Order Comment: Reaso n for Exam HTN (hypertension);Lupus;Chronic ITP (idiopathic thrombocyto Performed By: #### F ER, PROCRERAT, PTH, URIC, CBCNO, RENAL, MG, [id number] #### [facility] [address] [place] [address] [place] CO2 [Moles/Vol] 26.1 mmol/L Normal 21.0-31.0 [facility] Comment on above: Order Comment: Reaso n for Exam HTN (hypertension);Lupus;Chronic ITP (idiopathic thrombocyto Performed By: #### F ER, PROCRERAT, PTH, URIC, CBCNO, RENAL, MG, [id number] #### [facility] [address] [place] [id number] [facility] Creatinine [Mass/Vol] 1.13 mg/dL Normal 0.60-1.20 [facility] Comment on above: Order Comment: Reaso n for Exam HTN (hypertension);Lupus;Chronic ITP (idiopathic thrombocyto Performed By: #### F ER, PROCRERAT, PTH, URIC, CBCNO, RENAL, MG, [id number] #### [facility] [address] [place] [address] [place] GFR/1.73 sq M.predicted MDRD (S/P/Bld) [Vol rate/Area] 51.692 mL/min/{1.73_m2} Normal [facility] Other Comment on above: Order Comment: Reaso n for Exam HTN (hypertension);Lupus;Chronic ITP (idiopathic thrombocyto Performed By: #### F ER, PROCRERAT, PTH, URIC, CBCNO, RENAL, MG, [id number] #### [facility] [address] [place] [address] [place] Glucose [Mass/Vol] 116 mg/dL High 70-100 [facility] Other Comment on above: Order Comment: Reaso n for Exam HTN (hypertension);Lupus;Chronic ITP (idiopathic thrombocyto Result Comment: [place] Glucose Reference Range is dependent on time and content of last meal. Glucose of more than 200 mg/dL in a nonstressed, ambulatory subject supports the diagnosis of Diabetes Mellitus. ADA recommended reference range Performed By: #### F ER, PROCRERAT, PTH, URIC, CBCNO, RENAL, MG, [id number] #### [facility] [address] [place] [phone] [facility] Phosphate [Mass/Vol] 3.1 mg/dL Normal 2.5-4.5 [facility] Comment on above: Order Comment: Reaso n for Exam HTN (hypertension);Lupus;Chronic ITP (idiopathic thrombocyto Performed By: #### F ER, PROCRERAT, PTH, URIC, CBCNO, RENAL, MG, [id number] #### [facility] [address] [place] [phone] [facility] Potassium [Moles/Vol] 4.6 mmol/L Normal 3.5-5.1 [facility] Comment on above: Order Comment: Reaso n for Exam HTN (hypertension);Lupus;Chronic ITP (idiopathic thrombocyto Performed By: #### F ER, PROCRERAT, PTH, URIC, CBCNO, RENAL, MG, [id number] #### [facility] [address] [place] [phone] [place] Sodium [Moles/Vol] 140 mmol/L Normal 136-145 [facility] Other Comment on above: Order Comment: Reaso n for Exam HTN (hypertension);Lupus;Chronic ITP (idiopathic thrombocyto Performed By: #### F ER, PROCRERAT, PTH, URIC, CBCNO, RENAL, MG, [id number] #### [facility] [address] [place] [address] [place] Urea nitrogen [Mass/Vol] 39 mg/dL High 7-25 [facility] Other Comment on above: Order Comment: Reaso n for Exam HTN (hypertension);Lupus;Chronic ITP (idiopathic thrombocyto Performed By: #### F ER, PROCRERAT, PTH, URIC, CBCNO, RENAL, MG, [id number] #### [facility] [address] [place] [address] [facility] Uric Acidon 06-28-2023 Urate [Mass/Vol] 6.0419592 mg/dL High 2.3-6.6 mg/dL [place] Other Urate [Mass/Vol] 6.8 mg/dL High 2.3-6.6 [facility] Comment on above: Order Comment: Reaso n for Exam HTN (hypertension);Lupus;Chronic ITP (idiopathic thrombocyto Performed By: #### F ER, PROCRERAT, PTH, URIC, CBCNO, RENAL, MG, [id number] #### [facility] [address] [place] [address] [facility] Vitamin D 25 Hydroxy Totalon 06-28-2023 Vitamin D 25 Hydroxy Total 11.8 ng/mL Low 30-100 ng/mL [place] Other Vitamin D 25 Hydroxy Total 11.8 ng/mL Low 30-100 [facility] Comment on above: Order Comment: Reaso n for Exam HTN (hypertension);Lupus;Chronic ITP (idiopathic thrombocyto Result Comment: JENNIFER MIN D STATUS 25(OH)VITAMIN D RANGE (ng/mL) Deficient <20 Insufficient 20 to <30 Sufficient 30 to 100 Reference: Sunita MF,Adarsh NC, Ranulfo VELAZQUEZ, et al. Evaluation,treatment, and prevention of vitamin D deficiency; an Endocrine Society clinical practice guideline. JCEM. 2010; 96(7):1911-30. PERFORMED BY: [address] [place] [id number] PATHOLOGIST CHIEF OF HOSPITAL MEDICINE IVORY BORRERO M.D. Performed By: #### F ER, PROCRERAT, PTH, URIC, CBCNO, RENAL, MG, [id number] #### [facility] [address] [place] [id number] [facility] Albumin [Mass/volume] in Ser um or PlasmaOrdered By: Gilson Arriola on 08-29-2022 Albumin [Mass/Vol] 3.2 g/dL 3.2-5.5 [facility] Automated erythrocytes count in urine sediment (number/area)Ordered By: Gilson Arriola on 08-29-2022 RBC Auto (Urine sed) [#/Area] 1-2 [HPF] 0-4 [facility] Automated leukocytes count i n urine sediment (number/area)Ordered By: Gilson Arriola on 08-29-2022 WBC Auto (Urine sed) [#/Area] 0-1 [HPF] 0-4 [facility] Bilirubin Test strip Ql (U)O rdered By: Gilson Arriola on 08-29-2022 Bilirubin Ql (U) Negative Negative [facility] Color Auto (U)Ordered By: Ab christiano Arriola on 08-29-2022 Color (U) Yellow Yellow [facility] Creatinine [Mass/volume] in UrineOrdered By: Gilson Arriola on 08-29-2022 Creatinine (U) [Mass/Vol] 94.2 mg/dL [facility] Comment on above: No reference range e stablished Creatinine and Glomerular fi ltration rate.predicted panel (S/P/Bld)Ordered By: Gilson Arriola on 08-29-2022 Creatinine [Mass/Vol] 0.80 mg/dL 0.44-1.03 [facility] Erythrocyte distribution wid th Auto (RBC) [Ratio]Ordered By: Gilson Arriola on 08-29-2022 Erythrocyte distribution width (RBC) [Ratio] 14.9 % 11.9-15.3 [facility] Estimated glomerular filtrat ion rate (GFR) non- AmericanOrdered By: Gilson Arriola on 08-29-2022 GFR/1.73 sq M.predicted among non-blacks MDRD (S/P/Bld) [Vol rate/Area] > 60 mL/Min [facility] Hematocrit Auto (Bld) [Volum e fraction]Ordered By: Gilson Arriola on 08-29-2022 Hematocrit (Bld) [Volume fraction] 34.9 % 34.0-46.4 [facility] Hemoglobin [Mass/volume] in BloodOrdered By: Gilson Arriola on 08-29-2022 Hemoglobin (Bld) [Mass/Vol] 11.2 g/dL 11.8-15.4 [facility] Ketones Auto test strip (U) [Mass/Vol]Ordered By: Gilson Arriola on 08-29-2022 Ketones (U) [Mass/Vol] Negative Negative [facility] - Chemistry and C hemistry - challengeOrdered By: Gilson Arriola on 08-29-2022 Magnesium [Mass/Vol] 2.1 mg/dL 1.6-2.6 [facility] Laboratory - UrinalysisOrder ed By: Gilson Arriola on 08-29-2022 Hyaline casts LM Ql (Urine sed) 0-8 [LPF] 0-8 [facility] Leukocytes [#/volume] correc austin for nucleated erythrocytes in Blood by Automated counOrdered By: Gilson Arriola on 08-29-2022 WBC corrected for nucl RBC Auto (Bld) [#/Vol] 4.3 10*3/uL 3.8-11.6 [facility] MCH Auto (RBC) [Entitic mass ]Ordered By: Gilson Arriola on 08-29-2022 MCH (RBC) [Entitic mass] 29.5 pg 24.7-34.3 [facility] MCHC Auto (RBC) [Mass/Vol]Or dered By: Gilson Arriola on 08-29-2022 MCHC (RBC) [Mass/Vol] 32.1 g/dL 32.0-35.0 [facility] MCV Auto (RBC) [Entitic vol] Ordered By: Gilson Arriola on 08-29-2022 MCV (RBC) [Entitic vol] 92.0 fL 80-100 F [facility] Nitrite Test strip Ql (U)Ord ered By: Gilson Arriola on 08-29-2022 Nitrite Ql (U) Negative Negative [facility] No Panel InformationOrdered By: Gilson Arriola on 08-29-2022 Estimated GFR () > 60 mL/Min [facility] Comment on above: GFR estimated refere nce range: According to KDOQI guidelines, <60 ml/min/1.73m2 is sufficient to diagnose a patient with chronic kidney disease. Pharmacy Creatinine Clearance (Chem N/A [facility] Phosphate [Mass/volume] in S henok or PlasmaOrdered By: Gilson Arriola on 08-29-2022 Phosphate [Mass/Vol] 3.1 mg/dL 2.5-4.6 [facility] Platelet mean volume Auto (B ld) [Entitic vol]Ordered By: Gilson Johnsonr on 08-29-2022 Platelet mean volume (Bld) [Entitic vol] 8.4 fL 6.3-10.7 [facility] Platelets Auto (Bld) [#/Vol] Ordered By: Gilson Arriola on 08-29-2022 Platelets (Bld) [#/Vol] 124 10*3/uL 150-450 [facility] Protein Auto test strip (U) [Mass/Vol]Ordered By: Gilson Arriola on 08-29-2022 Protein (U) [Mass/Vol] Negative Negative [facility] Protein [Mass/volume] in Uri neOrdered By: Gilson Arriola on 08-29-2022 Protein (U) [Mass/Vol] 9 mg/dL 0-9 Fi [facility] RBC Auto (Bld) [#/Vol]Ordere d By: Gilson Arriola on 08-29-2022 RBC (Bld) [#/Vol] 3.79 10*6/uL 3.60-5.00 [facility] Serum or plasma anion gap de terminationOrdered By: Gilson Arriola on 08-29-2022 Anion gap [Moles/Vol] 10.9 mmol/L 6.0-15.0 [facility] Serum or plasma calcium ramya urement (mass/volume)Ordered By: Gilson Arriola on 08-29-2022 Calcium [Mass/Vol] 8.8 mg/dL 8.2-10.2 [facility] Serum or plasma chloride brandy surement (moles/volume)Ordered By: Gilson Arriola on 08-29-2022 Chloride [Moles/Vol] 99 mmol/L 95-114 [facility] Serum or plasma glucose ramya urement (mass/volume)Ordered By: Gilson Arriola on 08-29-2022 Glucose [Mass/Vol] 89 mg/dL 70-100 [facility] Comment on above: ADA recommended refe rence rangeRandom Glucose Reference Range is dependent on time and content of last meal. Glucose of more than 200 mg/dL in a nonstressed, ambulatory subject supports the diagnosis of Diabetes Mellitus. Serum or plasma potassium me asurement (moles/volume)Ordered By: Gilson Arriola on 08-29-2022 Potassium [Moles/Vol] 3.9 mmol/L 3.5-5.1 [facility] Serum or plasma sodium measu rement (moles/volume)Ordered By: Gilson Arriola on 08-29-2022 Sodium [Moles/Vol] 134 mmol/L 136-146 [facility] Serum or plasma total carbon dioxide measurement (moles/volume)Ordered By: Gilson Arriola on 08-29-2022 CO2 [Moles/Vol] 28.0 mmol/L 22.0-30.0 [facility] Serum or plasma urea nitroge n measurement (mass/volume)Ordered By: Gilson Arriola on 08-29-2022 Urea nitrogen [Mass/Vol] 19 mg/dL 9-23 [facility] Specific gravity Auto test s trip (U) [Rel density]Ordered By: Gilson Arriola on 08-29-2022 Specific gravity (U) [Rel density] 1.015 1.001-1.030 [facility] Squamous epithelial cells de tection in urine sediment by light microscopyOrdered By: Gilson Arriola on 08-29-2022 Epithelial cells.squamous LM Ql (Urine sed) 3-4 [HPF] 0-2 [facility] Urine bacteria detection by automated methodOrdered By: Gilson Arriola on 08-29-2022 Bacteria Auto Ql (U) None seen None Seen [facility] Urine clarity by refractomet ry automatedOrdered By: Gilson Arriola on 08-29-2022 Clarity Refractometry automated (U) Clear Clear [facility] Urine glucose measurement by automated test strip (mass/volume)Ordered By: Gilson Arriola on 08-29-2022 Glucose Auto test strip (U) [Mass/Vol] Normal mg/dL Normal [facility] Urine hemoglobin detection b y automated test stripOrdered By: Gilson Arriola on 08-29-2022 Hemoglobin Auto test strip Ql (U) Negative Negative [facility] Urine leukocyte esterase det ection by automated test stripOrdered By: Gilson Arriola on 08-29-2022 Leukocyte esterase Auto test strip Ql (U) Negative Negative [facility] Urine protein/creatinine rat ioOrdered By: Gilson Arriola on 08-29-2022 Protein/Creatinine (U) [Ratio] 96 mg/g{Cre} 0-200 [facility] Urobilinogen Auto test strip (U) [Mass/Vol]Ordered By: Gilson Arriola on 08-29-2022 Urobilinogen (U) [Mass/Vol] Normal mg/dL Normal [facility] pH Auto test strip (U)Ordere d By: Gilson Arriola on 08-29-2022 pH (U) 6.5 [pH] 5.0-9.0 [facility] MAGNESIUM BLDon 12-17-2021 Magnesium [Mass/Vol] 2.3 mg/dL 1.7 - 2 .3 mg/dL [facility] Vital Signs Date Time Vital Sign Value Performing Clinician Facility 12-25-2024 11:04-0400 Body mass index (BMI) [Ratio] 30.72 kg/m2 Stephanie Dumont DIFFUSION FURNACE OPERATOR Work Phone: [facility] 12-25-2024 11:04-0400 Body temperature 98.71 [degF] Stephanie Dumont DIFFUSION FURNACE OPERATOR Work Phone: [facility] 12-25-2024 11:04-0400 Body weight 78.65 kg Stephanie Dumont DIFFUSION FURNACE OPERATOR Work Phone: [facility] 12-25-2024 11:04-0400 Diastolic blood pressure 58 mm[Hg] Stephanie Dumont DIFFUSION FURNACE OPERATOR Work Phone: [facility] 12-25-2024 11:04-0400 Heart rate 73 /min Stephanie Dumont DIFFUSION FURNACE OPERATOR Work Phone: [facility] 12-25-2024 11:04-0400 Respiratory rate 18 /min Stephanie Dumont DIFFUSION FURNACE OPERATOR Work Phone: [facility] 12-25-2024 11:04-0400 SaO2% (BldA) [Mass fraction] 97 % Stephanie Forderichi DIFFUSION FURNACE OPERATOR Work Phone: [facility] 12-25-2024 11:04-0400 Systolic blood pressure 96 mm[Hg] Stephanie Forderichi DIFFUSION FURNACE OPERATOR Work Phone: [facility] 12-20-2024 13:42-0400 Body temperature 97.7 [degF] [facility] Work Phone: [facility] 12-20-2024 13:42-0400 Diastolic blood pressure 72 mm[Hg] [facility] Work Phone: [facility] 12-20-2024 13:42-0400 Heart rate 77 /min [facility] Work Phone: [facility] 12-20-2024 13:42-0400 Respiratory rate 18 /min [facility] Work Phone: [facility] 12-20-2024 13:42-0400 SaO2% (BldA) [Mass fraction] 99 % [facility] Work Phone: [facility] 12-20-2024 13:42-0400 Systolic blood pressure 116 mm[Hg] [facility] Work Phone: [facility] 2024 13:40-0400 Body temperature 98.1 [degF] [facility] Work Phone: [facility] 2024 13:40-0400 Diastolic blood pressure 83 mm[Hg] [facility] Work Phone: [facility] 2024 13:40-0400 Heart rate 67 /min [facility] Work Phone: [facility] 2024 13:40-0400 Respiratory rate 18 /min [facility] Work Phone: [facility] 2024 13:40-0400 SaO2% (BldA) [Mass fraction] 98 % [facility] Work Phone: [facility] 2024 13:40-0400 Systolic blood pressure 136 mm[Hg] [facility] Work Phone: [facility] 11-26-2024 15:28-0400 Body mass index (BMI) [Ratio] 34.19 kg/m2 Susanna Graf MD Work Phone: [facility] 11-26-2024 15:28-0400 Body weight 87.54 kg Susanna Graf MD Work Phone: [facility] 11-22-2024 13:57-0400 Body mass index (BMI) [Ratio] 32.44 kg/m2 Rinku Ramsey MD Work Phone: [facility] 11-22-2024 13:57-0400 Body temperature 97.11 [degF] Rinku Ramsey MD Work Phone: [facility] 11-22-2024 13:57-0400 Body weight 81.8 kg Rinku Ramsey MD Work Phone: [facility] 11-22-2024 13:57-0400 Diastolic blood pressure 81 mm[Hg] Rinku Ramsey MD Work Phone: [facility] 11-22-2024 13:57-0400 Heart rate 78 /min Rinku Ramsey MD Work Phone: [facility] 11-22-2024 13:57-0400 Respiratory rate 18 /min Rinku Ramsey MD Work Phone: [facility] 11-22-2024 13:57-0400 SaO2% (BldA) [Mass fraction] 97 % Rinku Ramsey MD Work Phone: [facility] 11-22-2024 13:57-0400 Systolic blood pressure 125 mm[Hg] Rinku Ramsey MD Work Phone: [facility] 10-11-2024 10:08-0400 Body mass index (BMI) [Ratio] 32.32 kg/m2 Li Hong WELDER FITTER APPRENTICE.PATIENT CARE TECHNICIAN Work Phone: [facility] 10-11-2024 10:08-0400 Body temperature 97.81 [degF] Li Hong WELDER FITTER APPRENTICE.PATIENT CARE TECHNICIAN Work Phone: [facility] 10-11-2024 10:08-0400 Body weight 81.5 kg Li Hong WELDER FITTER APPRENTICE.PATIENT CARE TECHNICIAN Work Phone: [facility] 10-11-2024 10:08-0400 Diastolic blood pressure 84 mm[Hg] Li Hong WELDER FITTER APPRENTICE.PATIENT CARE TECHNICIAN Work Phone: [facility] 10-11-2024 10:08-0400 Heart rate 79 /min Li Hong WELDER FITTER APPRENTICE.PATIENT CARE TECHNICIAN Work Phone: [facility] 10-11-2024 10:08-0400 Respiratory rate 16 /min Li Hong WELDER FITTER APPRENTICE.PATIENT CARE TECHNICIAN Work Phone: [facility] 10-11-2024 10:08-0400 SaO2% (BldA) [Mass fraction] 99 % Li Hong WELDER FITTER APPRENTICE.PATIENT CARE TECHNICIAN Work Phone: [facility] 10-11-2024 10:08-0400 Systolic blood pressure 153 mm[Hg] Li Hong WELDER FITTER APPRENTICE.PATIENT CARE TECHNICIAN Work Phone: [facility] 08-30-2024 10:48-0500 Body mass index (BMI) [Ratio] 32.79 kg/m2 Li Hong WELDER FITTER APPRENTICE.PATIENT CARE TECHNICIAN Work Phone: [facility] 08-30-2024 10:48-0500 Body temperature 97.5 [degF] Li Hong WELDER FITTER APPRENTICE.PATIENT CARE TECHNICIAN Work Phone: [facility] 08-30-2024 10:48-0500 Body weight 82.7 kg Li Hong WELDER FITTER APPRENTICE.PATIENT CARE TECHNICIAN Work Phone: [facility] 08-30-2024 10:48-0500 Diastolic blood pressure 76 mm[Hg] Li Hong WELDER FITTER APPRENTICE.PATIENT CARE TECHNICIAN Work Phone: [facility] 08-30-2024 10:48-0500 Heart rate 75 /min Li Hong WELDER FITTER APPRENTICE.PATIENT CARE TECHNICIAN Work Phone: [facility] 08-30-2024 10:48-0500 Respiratory rate 18 /min Li Hong WELDER FITTER APPRENTICE.PATIENT CARE TECHNICIAN Work Phone: [facility] 08-30-2024 10:48-0500 SaO2% (BldA) [Mass fraction] 98 % Li Hong WELDER FITTER APPRENTICE.PATIENT CARE TECHNICIAN Work Phone: [facility] 08-30-2024 10:48-0500 Systolic blood pressure 114 mm[Hg] Li Hong WELDER FITTER APPRENTICE.PATIENT CARE TECHNICIAN Work Phone: [facility] 08-21-2024 13:17-0500 Body height 160.02 cm [facility] 08-21-2024 13:17-0500 Body mass index (BMI) [Ratio] 32.2 kg/m2 [facility] 08-21-2024 13:17-0500 Body temperature 96.2 [degF] [facility] 08-21-2024 13:17-0500 Body weight 82.55 kg [facility] 08-21-2024 13:17-0500 Diastolic blood pressure 70 mm[Hg] [facility] 08-21-2024 13:17-0500 Heart rate 85 /min [facility] 08-21-2024 13:17-0500 Respiratory rate 18 /min [facility] 08-21-2024 13:17-0500 SaO2% (BldA) [Mass fraction] 98 % [facility] 08-21-2024 13:17-0500 Systolic blood pressure 121 mm[Hg] [facility] 08-15-2024 10:46-0500 Body height 160 cm Stephanie Dumont DIFFUSION FURNACE OPERATOR Work Phone: [facility] 08-15-2024 10:46-0500 Body mass index (BMI) [Ratio] 32.38 kg/m2 Stephanie Dumont DIFFUSION FURNACE OPERATOR Work Phone: [facility] 08-15-2024 10:46-0500 Body temperature 98.71 [degF] Stephanie Maruben DIFFUSION FURNACE OPERATOR Work Phone: [facility] 08-15-2024 10:46-0500 Body weight 82.92 kg Stephanie Dumont DIFFUSION FURNACE OPERATOR Work Phone: [facility] 08-15-2024 10:46-0500 Diastolic blood pressure 78 mm[Hg] Stephanie Fordeernestinaz DIFFUSION FURNACE OPERATOR Work Phone: [facility] 08-15-2024 10:46-0500 Heart rate 65 /min Stephanie Maruben DIFFUSION FURNACE OPERATOR Work Phone: [facility] 08-15-2024 10:46-0500 Respiratory rate 19 /min Stephanie Maruben DIFFUSION FURNACE OPERATOR Work Phone: [facility] 08-15-2024 10:46-0500 SaO2% (BldA) [Mass fraction] 99 % Stephanie Maruben DIFFUSION FURNACE OPERATOR Work Phone: [facility] 08-15-2024 10:46-0500 Systolic blood pressure 140 mm[Hg] Stephanie Dumont DIFFUSION FURNACE OPERATOR Work Phone: [facility] 07-11-2024 10:52-0500 Body height 158.8 cm Li Frank APRN.PATIENT CARE TECHNICIAN Work Phone: [facility] 07-11-2024 10:52-0500 Body mass index (BMI) [Ratio] 33.55 kg/m2 Li Frank WELDER FITTER APPRENTICE.PATIENT CARE TECHNICIAN Work Phone: [facility] 07-11-2024 10:52-0500 Body temperature 97.59 [degF] Li Frank APRN.PATIENT CARE TECHNICIAN Work Phone: [facility] 07-11-2024 10:52-0500 Body weight 84.6 kg Li Hong WELDER FITTER APPRENTICE.PATIENT CARE TECHNICIAN Work Phone: [facility] 07-11-2024 10:52-0500 Diastolic blood pressure 83 mm[Hg] Li Hong WELDER FITTER APPRENTICE.PATIENT CARE TECHNICIAN Work Phone: [facility] 07-11-2024 10:52-0500 Heart rate 77 /min Li Hong WELDER FITTER APPRENTICE.PATIENT CARE TECHNICIAN Work Phone: [facility] 07-11-2024 10:52-0500 Respiratory rate 18 /min Li Hong WELDER FITTER APPRENTICE.PATIENT CARE TECHNICIAN Work Phone: [facility] 07-11-2024 10:52-0500 SaO2% (BldA) [Mass fraction] 97 % Li Hong WELDER FITTER APPRENTICE.PATIENT CARE TECHNICIAN Work Phone: [facility] 07-11-2024 10:52-0500 Systolic blood pressure 136 mm[Hg] Li Hong WELDER FITTER APPRENTICE.PATIENT CARE TECHNICIAN Work Phone: [facility] 05-30-2024 10:29-0500 Body height 158.8 cm Rinku Ramsey MD Work Phone: [facility] 05-30-2024 10:29-0500 Body mass index (BMI) [Ratio] 33.03 kg/m2 Rinku Ramsey MD Work Phone: [facility] 05-30-2024 10:29-0500 Body temperature 97.2 [degF] Rinku Ramsey MD Work Phone: [facility] 05-30-2024 10:29-0500 Body weight 83.3 kg Rinku Ramsey MD Work Phone: [facility] 05-30-2024 10:29-0500 Diastolic blood pressure 80 mm[Hg] Rinku Ramsey MD Work Phone: [facility] 05-30-2024 10:29-0500 Heart rate 71 /min Rinku Ramsey MD Work Phone: [facility] 05-30-2024 10:29-0500 Respiratory rate 16 /min Rinku Ramsey MD Work Phone: [facility] 05-30-2024 10:29-0500 SaO2% (BldA) [Mass fraction] 97 % Rinku Ramsey MD Work Phone: [facility] 05-30-2024 10:29-0500 Systolic blood pressure 145 mm[Hg] Rinku Ramsey MD Work Phone: [facility] 05-15-2024 14:15-0500 Body height 160 cm Mar Mayo MD Work Phone: [facility] 05-15-2024 14:15-0500 Body mass index (BMI) [Ratio] 32.77 kg/m2 Mar Mayo MD Work Phone: [facility] 05-15-2024 14:15-0500 Body weight 83.92 kg Mar Mayo MD Work Phone: [facility] 05-15-2024 14:15-0500 Diastolic blood pressure 64 mm[Hg] Mar Mayo MD Work Phone: [facility] 05-15-2024 14:15-0500 Systolic blood pressure 109 mm[Hg] Mar Mayo MD Work Phone: [facility] 05-14-2024 10:32-0500 Body height 160 cm Stephanie Dumont DIFFUSION FURNACE OPERATOR Work Phone: [facility] 05-14-2024 10:32-0500 Body mass index (BMI) [Ratio] 33.13 kg/m2 Stephanie Dumont DIFFUSION FURNACE OPERATOR Work Phone: [facility] 05-14-2024 10:32-0500 Body temperature 98.71 [degF] Stephanie Dumont DIFFUSION FURNACE OPERATOR Work Phone: [facility] 05-14-2024 10:32-0500 Body weight 84.82 kg Stephanie Dumont DIFFUSION FURNACE OPERATOR Work Phone: [facility] 05-14-2024 10:32-0500 Diastolic blood pressure 70 mm[Hg] Stephanie Aichholz DIFFUSION FURNACE OPERATOR Work Phone: [facility] 05-14-2024 10:32-0500 Heart rate 75 /min Stephanie Aichholz DIFFUSION FURNACE OPERATOR Work Phone: [facility] 05-14-2024 10:32-0500 Respiratory rate 19 /min Stephanie Aichholz DIFFUSION FURNACE OPERATOR Work Phone: [facility] 05-14-2024 10:32-0500 SaO2% (BldA) [Mass fraction] 97 % Stephanie Aichholz DIFFUSION FURNACE OPERATOR Work Phone: [facility] 05-14-2024 10:32-0500 Systolic blood pressure 116 mm[Hg] Stephanie Aichholz DIFFUSION FURNACE OPERATOR Work Phone: [facility] 04-24-2024 11:08-0400 Body height 160 cm Stephanie Aichholz DIFFUSION FURNACE OPERATOR Work Phone: [facility] 04-24-2024 11:08-0400 Body mass index (BMI) [Ratio] 32.38 kg/m2 Stephanie Aichholz DIFFUSION FURNACE OPERATOR Work Phone: [facility] 04-24-2024 11:08-0400 Body temperature 98.49 [degF] Stephanie Aichholz DIFFUSION FURNACE OPERATOR Work Phone: [facility] 04-24-2024 11:08-0400 Body weight 82.92 kg Stephanie Aichholz DIFFUSION FURNACE OPERATOR Work Phone: [facility] 04-24-2024 11:08-0400 Diastolic blood pressure 72 mm[Hg] Stephanie Aichholz DIFFUSION FURNACE OPERATOR Work Phone: [facility] 04-24-2024 11:08-0400 Heart rate 74 /min Stephanie Aichholz DIFFUSION FURNACE OPERATOR Work Phone: [facility] 04-24-2024 11:08-0400 Respiratory rate 19 /min Stephanie Aichholz DIFFUSION FURNACE OPERATOR Work Phone: [facility] 04-24-2024 11:08-0400 SaO2% (BldA) [Mass fraction] 100 % Stephanie Dumont DIFFUSION FURNACE OPERATOR Work Phone: [facility] 04-24-2024 11:08-0400 Systolic blood pressure 138 mm[Hg] Stephanie Tim DIFFUSION FURNACE OPERATOR Work Phone: [facility] 04-18-2024 11:02-0400 Body height 158.8 cm Rinku Ramsey MD Work Phone: [facility] 04-18-2024 11:02-0400 Body mass index (BMI) [Ratio] 34.72 kg/m2 Rinku Ramsey MD Work Phone: [facility] 04-18-2024 11:02-0400 Body temperature 97.59 [degF] Rinku Ramsey MD Work Phone: [facility] 04-18-2024 11:02-0400 Body weight 87.54 kg Rinku Ramsey MD Work Phone: [facility] 04-18-2024 11:02-0400 Diastolic blood pressure 81 mm[Hg] Rinku Ramsey MD Work Phone: [facility] 04-18-2024 11:02-0400 Heart rate 74 /min Rinku Ramsey MD Work Phone: [facility] 04-18-2024 11:02-0400 Respiratory rate 16 /min Rinku Ramsey MD Work Phone: [facility] 04-18-2024 11:02-0400 SaO2% (BldA) [Mass fraction] 97 % Rinku Ramsey MD Work Phone: [facility] 04-18-2024 11:02-0400 Systolic blood pressure 136 mm[Hg] Rinku Ramsey MD Work Phone: [facility] 04-09-2024 10:15-0400 Body height 160 cm Blaise GONZALEZ Work Phone: [facility] 04-09-2024 10:15-0400 Body mass index (BMI) [Ratio] 32.59 kg/m2 Blaise GONZALEZ Work Phone: [facility] 04-09-2024 10:15-0400 Body weight 83.46 kg Blaise Alex PA Work Phone: [facility] 04-04-2024 09:47-0400 Body height 160 cm Stephaniekori Maz DIFFUSION FURNACE OPERATOR Work Phone: [facility] 04-04-2024 09:47-0400 Body mass index (BMI) [Ratio] 32.7 kg/m2 Stephanie Aichholz DIFFUSION FURNACE OPERATOR Work Phone: [facility] 04-04-2024 09:47-0400 Body temperature 98.29 [degF] Stephanie Aichholz DIFFUSION FURNACE OPERATOR Work Phone: [facility] 04-04-2024 09:47-0400 Body weight 83.73 kg Stephanie Aichholz DIFFUSION FURNACE OPERATOR Work Phone: [facility] 04-04-2024 09:47-0400 Diastolic blood pressure 80 mm[Hg] Stephanie Aichholz DIFFUSION FURNACE OPERATOR Work Phone: [facility] 04-04-2024 09:47-0400 Heart rate 72 /min Stephanie Aichholz DIFFUSION FURNACE OPERATOR Work Phone: [facility] 04-04-2024 09:47-0400 Respiratory rate 19 /min Stephanie Aichholz DIFFUSION FURNACE OPERATOR Work Phone: [facility] 04-04-2024 09:47-0400 SaO2% (BldA) [Mass fraction] 98 % Stephanie Aichholz DIFFUSION FURNACE OPERATOR Work Phone: [facility] 04-04-2024 09:47-0400 Systolic blood pressure 112 mm[Hg] Stephanie Aichholz DIFFUSION FURNACE OPERATOR Work Phone: [facility] 03-05-2024 10:56-0400 Body height 158.8 cm Rinku Ramsey MD Work Phone: [facility] 03-05-2024 10:56-0400 Body mass index (BMI) [Ratio] 34.66 kg/m2 Rinku Ramsey MD Work Phone: [facility] 03-05-2024 10:56-0400 Body temperature 97.7 [degF] Rinku Ramsey MD Work Phone: [facility] 03-05-2024 10:56-0400 Body weight 87.4 kg Rinku Ramsey MD Work Phone: [facility] 03-05-2024 10:56-0400 Diastolic blood pressure 72 mm[Hg] Rinku Ramsey MD Work Phone: [facility] 03-05-2024 10:56-0400 Heart rate 74 /min Rinku Ramsey MD Work Phone: [facility] 03-05-2024 10:56-0400 Respiratory rate 16 /min Rinku Ramsey MD Work Phone: [facility] 03-05-2024 10:56-0400 SaO2% (BldA) [Mass fraction] 98 % Rinku Ramsey MD Work Phone: [facility] 03-05-2024 10:56-0400 Systolic blood pressure 128 mm[Hg] Rinku Ramsey MD Work Phone: [facility] 03-04-2024 10:27-0400 Body mass index (BMI) [Ratio] 34.19 kg/m2 Stephanie Dumont DIFFUSION FURNACE OPERATOR Work Phone: [facility] 03-04-2024 10:27-0400 Body temperature 97.2 [degF] Stephanie Dumont DIFFUSION FURNACE OPERATOR Work Phone: [facility] 03-04-2024 10:27-0400 Body weight 87.54 kg Stephanie Dumont DIFFUSION FURNACE OPERATOR Work Phone: [facility] 03-04-2024 10:27-0400 Diastolic blood pressure 64 mm[Hg] Stephanie Dumont DIFFUSION FURNACE OPERATOR Work Phone: [facility] 03-04-2024 10:27-0400 Heart rate 80 /min Stephanie Forderichi DIFFUSION FURNACE OPERATOR Work Phone: [facility] 03-04-2024 10:27-0400 SaO2% (BldA) [Mass fraction] 98 % Stephanie Forderichi DIFFUSION FURNACE OPERATOR Work Phone: [facility] 03-04-2024 10:27-0400 Systolic blood pressure 138 mm[Hg] Stephanie Forderichi DIFFUSION FURNACE OPERATOR Work Phone: [facility] 02-02-2024 13:21-0400 Body height 158.8 cm Rinku Ramsey MD Work Phone: [facility] 02-02-2024 13:21-0400 Body mass index (BMI) [Ratio] 34.54 kg/m2 Rinku Ramsey MD Work Phone: [facility] 02-02-2024 13:21-0400 Body temperature 97.7 [degF] Rinku Ramsey MD Work Phone: [facility] 02-02-2024 13:21-0400 Body weight 87.1 kg Rinku Ramsey MD Work Phone: [facility] 02-02-2024 13:21-0400 Diastolic blood pressure 68 mm[Hg] Rinku Ramsey MD Work Phone: [facility] 02-02-2024 13:21-0400 Heart rate 76 /min Rinku Ramsey MD Work Phone: [facility] 02-02-2024 13:21-0400 Respiratory rate 16 /min Rinku Ramsey MD Work Phone: [facility] 02-02-2024 13:21-0400 SaO2% (BldA) [Mass fraction] 100 % Rinku Ramsey MD Work Phone: [facility] 02-02-2024 13:21-0400 Systolic blood pressure 142 mm[Hg] Rinku Ramsey MD Work Phone: [facility] 12-18-2023 14:20-0400 Body temperature 97.2 [degF] Susanna Graf MD Work Phone: [facility] 12-18-2023 14:20-0400 Diastolic blood pressure 57 mm[Hg] Susanna Graf MD Work Phone: [facility] 12-18-2023 14:20-0400 Heart rate 79 /min Susanna Graf MD Work Phone: [facility] 12-18-2023 14:20-0400 Respiratory rate 19 /min Susanna Graf MD Work Phone: [facility] 12-18-2023 14:20-0400 SaO2% (BldA) [Mass fraction] 96 % Susanna Graf MD Work Phone: [facility] 12-18-2023 14:20-0400 Systolic blood pressure 131 mm[Hg] Susanna Graf MD Work Phone: [facility] 12-18-2023 06:28-0400 Body height 160 cm Susanna Graf MD Work Phone: [facility] 12-18-2023 06:28-0400 Body mass index (BMI) [Ratio] 33.94 kg/m2 Susanna Graf MD Work Phone: [facility] 12-18-2023 06:28-0400 Body weight 86.9 kg Susanna Graf MD Work Phone: [facility] 11-24-2023 10:59-0400 Body height 158.8 cm Rinku Ramsey MD Work Phone: [facility] 11-24-2023 10:59-0400 Body mass index (BMI) [Ratio] 34.78 kg/m2 Rinku Ramsey MD Work Phone: [facility] 11-24-2023 10:59-0400 Body temperature 97.7 [degF] Rinku Ramsey MD Work Phone: [facility] 11-24-2023 10:59-0400 Body weight 87.7 kg Rinku Ramsey MD Work Phone: [facility] 11-24-2023 10:59-0400 Diastolic blood pressure 84 mm[Hg] Rinku Ramsey MD Work Phone: [facility] 11-24-2023 10:59-0400 Heart rate 68 /min Rinku Ramsey MD Work Phone: [facility] 11-24-2023 10:59-0400 Respiratory rate 16 /min Rinku Ramsey MD Work Phone: [facility] 11-24-2023 10:59-0400 SaO2% (BldA) [Mass fraction] 100 % Rinku Ramsey MD Work Phone: [facility] 11-24-2023 10:59-0400 Systolic blood pressure 152 mm[Hg] Rinku Ramsey MD Work Phone: [facility] 11-14-2023 12:52-0400 Body height 160 cm Susanna Graf MD Work Phone: [facility] 11-14-2023 12:52-0400 Body mass index (BMI) [Ratio] 34.28 kg/m2 Susanna Graf MD Work Phone: [facility] 11-14-2023 12:52-0400 Body temperature 97.11 [degF] Susanna Graf MD Work Phone: [facility] 11-14-2023 12:52-0400 Body weight 87.77 kg Susanna rGaf MD Work Phone: [facility] 10-13-2023 13:11-0400 Body height 158.8 cm Ana Hernandez PA-C Work Phone: [facility] 10-13-2023 13:11-0400 Body temperature 97.59 [degF] Ana Mary PA-C Work Phone: [facility] 10-13-2023 13:11-0400 Body weight 87 kg Ana Mary PA-C Work Phone: [facility] 10-13-2023 13:11-0400 Diastolic blood pressure 84 mm[Hg] Ana Mary PA-C Work Phone: [facility] 10-13-2023 13:11-0400 Heart rate 68 /min Ana Mary PA-C Work Phone: [facility] 10-13-2023 13:11-0400 Respiratory rate 18 /min Ana Mayr PA-C Work Phone: [facility] 10-13-2023 13:11-0400 SaO2% (BldA) [Mass fraction] 98 % Ana Mary PA-C Work Phone: [facility] 10-13-2023 13:11-0400 Systolic blood pressure 152 mm[Hg] Ana Mary PA-C Work Phone: [facility] 08-28-2023 14:37-0500 Body temperature 97.59 [degF] Rinku Ramsey MD Work Phone: [facility] 08-28-2023 14:37-0500 Body weight 87.3 kg Rinku Ramsey MD Work Phone: [facility] 08-28-2023 14:37-0500 Diastolic blood pressure 78 mm[Hg] Rinku Ramsey MD Work Phone: [facility] 08-28-2023 14:37-0500 Heart rate 85 /min Rinku Ramsey MD Work Phone: [facility] 08-28-2023 14:37-0500 Respiratory rate 16 /min Rinku Ramsey MD Work Phone: [facility] 08-28-2023 14:37-0500 SaO2% (BldA) [Mass fraction] 97 % Rinku Ramsey MD Work Phone: [facility] 08-28-2023 14:37-0500 Systolic blood pressure 132 mm[Hg] Rinku Ramsey MD Work Phone: [facility] 08-23-2023 10:10-0500 Body height 160 cm Mar Mayo MD Work Phone: [facility] 08-23-2023 10:10-0500 Body mass index (BMI) [Ratio] 33.66 kg/m2 Mar Mayo MD Work Phone: [facility] 08-23-2023 10:10-0500 Body weight 86.18 kg Mar Mayo MD Work Phone: [facility] 08-23-2023 10:10-0500 Diastolic blood pressure 68 mm[Hg] Mar Mayo MD Work Phone: [facility] 08-23-2023 10:10-0500 Systolic blood pressure 133 mm[Hg] Mar Mayo MD Work Phone: [facility] 06-28-2023 10:20-0500 Body height 160.02 cm Gilson Zeinab Other [facility] Other 06-28-2023 10:20-0500 Body mass index (BMI) [Ratio] 34.04 kg/m2 Gilson Zeinab Other [facility] Other 06-28-2023 10:20-0500 Body temperature 96.7 [degF] Gilson Zeinab Other [facility] Other 06-28-2023 10:20-0500 Body weight 87.18 kg Gilson Zeinab Other [facility] Other 06-28-2023 10:20-0500 Diastolic blood pressure 59 mm[Hg] Gilson Zeinab Other [facility] Other 06-28-2023 10:20-0500 Respiratory rate 18 /min Gilson Zeinab Other [facility] Other 06-28-2023 10:20-0500 SaO2% (BldA) [Mass fraction] 96 % Gilson Zeinab Other [facility] Other 06-28-2023 10:20-0500 Systolic blood pressure 117 mm[Hg] Gilson Zeinab Other [facility] Other 06-05-2023 10:08-0500 Body height 158.8 cm Ana Mary PA-C Work Phone: [facility] 06-05-2023 10:08-0500 Body temperature 97 [degF] Ana Mary PA-C Work Phone: [facility] 06-05-2023 10:08-0500 Body weight 87.27 kg Ana Mary PA-C Work Phone: [facility] 06-05-2023 10:08-0500 Diastolic blood pressure 84 mm[Hg] Ana Mary PA-C Work Phone: [facility] 06-05-2023 10:08-0500 Heart rate 76 /min Ana Mary PA-C Work Phone: [facility] 06-05-2023 10:08-0500 Respiratory rate 16 /min Ana Mary PA-C Work Phone: [facility] 06-05-2023 10:08-0500 SaO2% (BldA) [Mass fraction] 97 % Ana Mary PA-C Work Phone: [facility] 06-05-2023 10:08-0500 Systolic blood pressure 152 mm[Hg] Ana Mary PA-C Work Phone: [facility] 04-20-2023 10:11-0400 Body height 158.8 cm Rinku Ramsey MD Work Phone: [facility] 04-20-2023 10:11-0400 Body temperature 97.81 [degF] Rinku Ramsey MD Work Phone: [facility] 04-20-2023 10:11-0400 Body weight 89 kg Rinku Ramsey MD Work Phone: [facility] 04-20-2023 10:11-0400 Diastolic blood pressure 87 mm[Hg] Rinku Ramsey MD Work Phone: [facility] 04-20-2023 10:11-0400 Heart rate 72 /min Rinku Ramsey MD Work Phone: [facility] 04-20-2023 10:11-0400 Respiratory rate 18 /min Rinku Ramsey MD Work Phone: [facility] 04-20-2023 10:11-0400 SaO2% (BldA) [Mass fraction] 98 % Rinku Ramsey MD Work Phone: [facility] 04-20-2023 10:11-0400 Systolic blood pressure 168 mm[Hg] Rinku Ramsey MD Work Phone: [facility] 03-09-2023 14:03-0400 Body height 158.8 cm Rinku Ramsey MD Work Phone: [facility] 03-09-2023 14:03-0400 Body temperature 97.59 [degF] Rinku Ramsey MD Work Phone: [facility] 03-09-2023 14:03-0400 Body weight 88.27 kg Rinku Ramsey MD Work Phone: [facility] 03-09-2023 14:03-0400 Diastolic blood pressure 76 mm[Hg] Rinku Ramsey MD Work Phone: [facility] 03-09-2023 14:03-0400 Heart rate 71 /min Rinku Ramsey MD Work Phone: [facility] 03-09-2023 14:03-0400 Respiratory rate 16 /min Rinku Ramsey MD Work Phone: [facility] 03-09-2023 14:03-0400 SaO2% (BldA) [Mass fraction] 95 % Rinku Ramsey MD Work Phone: [facility] 03-09-2023 14:03-0400 Systolic blood pressure 143 mm[Hg] Rinku Ramsey MD Work Phone: [facility] 01-26-2023 14:48-0400 Body height 158.8 cm Rinku Ramsey MD Work Phone: [facility] 01-26-2023 14:48-0400 Body temperature 97.59 [degF] Rinku Ramsey MD Work Phone: [facility] 01-26-2023 14:48-0400 Body weight 89.09 kg Rinku Ramsey MD Work Phone: [facility] 01-26-2023 14:48-0400 Diastolic blood pressure 77 mm[Hg] Rinku Ramsey MD Work Phone: [facility] 01-26-2023 14:48-0400 Heart rate 75 /min Rinku Ramsey MD Work Phone: [facility] 01-26-2023 14:48-0400 Respiratory rate 18 /min Rinku Ramsey MD Work Phone: [facility] 01-26-2023 14:48-0400 SaO2% (BldA) [Mass fraction] 98 % Rinku Ramsey MD Work Phone: [facility] 01-26-2023 14:48-0400 Systolic blood pressure 147 mm[Hg] Rinku Ramsey MD Work Phone: [facility] 12-15-2022 13:52-0400 Body height 158.8 cm Rinku Ramsey MD Work Phone: [facility] 12-15-2022 13:52-0400 Body temperature 97.5 [degF] Rinku Ramsey MD Work Phone: [facility] 12-15-2022 13:52-0400 Body weight 87.36 kg Rinku Ramsey MD Work Phone: [facility] 12-15-2022 13:52-0400 Diastolic blood pressure 8 mm[Hg] Rinku Ramsey MD Work Phone: [facility] 12-15-2022 13:52-0400 Heart rate 64 /min Rinku Ramsey MD Work Phone: [facility] 12-15-2022 13:52-0400 Respiratory rate 16 /min Rinku Ramsey MD Work Phone: [facility] 12-15-2022 13:52-0400 SaO2% (BldA) [Mass fraction] 96 % Rinku Ramsey MD Work Phone: [facility] 12-15-2022 13:52-0400 Systolic blood pressure 152 mm[Hg] Rinku Ramsey MD Work Phone: [facility] 10-27-2022 14:56-0400 Body height 158.8 cm Rinku Ramsey MD Work Phone: [facility] 10-27-2022 14:56-0400 Body temperature 97.39 [degF] Rinku Ramsey MD Work Phone: [facility] 10-27-2022 14:56-0400 Body weight 87.36 kg Rinku Ramsey MD Work Phone: [facility] 10-27-2022 14:56-0400 Diastolic blood pressure 84 mm[Hg] Rinku Ramsey MD Work Phone: [facility] 10-27-2022 14:56-0400 Heart rate 71 /min Rinku Ramsey MD Work Phone: [facility] 10-27-2022 14:56-0400 Respiratory rate 18 /min Rinku Ramsey MD Work Phone: [facility] 10-27-2022 14:56-0400 SaO2% (BldA) [Mass fraction] 98 % Rinku Ramsey MD Work Phone: [facility] 10-27-2022 14:56-0400 Systolic blood pressure 164 mm[Hg] Rinku Ramsey MD Work Phone: [facility] 09-15-2022 15:20-0500 Body height 158.8 cm Rinku Ramsey MD Work Phone: [facility] 09-15-2022 15:20-0500 Body temperature 97.11 [degF] Rinku Ramsey MD Work Phone: [facility] 09-15-2022 15:20-0500 Body weight 86.36 kg Rinku Ramsey MD Work Phone: [facility] 09-15-2022 15:20-0500 Diastolic blood pressure 89 mm[Hg] Rinku Ramsey MD Work Phone: [facility] 09-15-2022 15:20-0500 Heart rate 75 /min Rinku Ramsey MD Work Phone: [facility] 09-15-2022 15:20-0500 Respiratory rate 16 /min Rinku Ramsey MD Work Phone: [facility] 09-15-2022 15:20-0500 SaO2% (BldA) [Mass fraction] 97 % Rinku Ramsey MD Work Phone: [facility] 09-15-2022 15:20-0500 Systolic blood pressure 158 mm[Hg] Rinku Ramsey MD Work Phone: [facility] 09-07-2022 10:20-0500 Body height 160.02 cm Gilson Zeinab Other [facility] Other 09-07-2022 10:20-0500 Body mass index (BMI) [Ratio] 33.69 kg/m2 Gilson Zeinab Other [facility] Other 09-07-2022 10:20-0500 Body temperature 96.4 [degF] Gilson Zeinab Other [facility] Other 09-07-2022 10:20-0500 Body weight 86.27 kg Gilson Zeinab Other [facility] Other 09-07-2022 10:20-0500 Diastolic blood pressure 99 mm[Hg] Gilson Zeinab Other [facility] Other 09-07-2022 10:20-0500 Respiratory rate 18 /min Gilson Zeinab Other [facility] Other 09-07-2022 10:20-0500 SaO2% (BldA) [Mass fraction] 98 % Gilson Zeinab Other [facility] Other 09-07-2022 10:20-0500 Systolic blood pressure 180 mm[Hg] Gilson Zeinab Other [facility] Other 08-04-2022 13:58-0500 Body height 158.8 cm Jayden Connelly APRN.CNP Work Phone: [facility] 08-04-2022 13:58-0500 Body temperature 97.39 [degF] Jayden Connelly APRN.CNP Work Phone: [facility] 08-04-2022 13:58-0500 Body weight 85.37 kg Jayden Connelly WELDER FITTER APPRENTICE.PATIENT CARE TECHNICIAN Work Phone: [facility] 08-04-2022 13:58-0500 Diastolic blood pressure 80 mm[Hg] Jayden Connelly WELDER FITTER APPRENTICE.PATIENT CARE TECHNICIAN Work Phone: [facility] 08-04-2022 13:58-0500 Heart rate 76 /min Jayden Connelly WELDER FITTER APPRENTICE.PATIENT CARE TECHNICIAN Work Phone: [facility] 08-04-2022 13:58-0500 Respiratory rate 16 /min Jayden Connelly WELDER FITTER APPRENTICE.PATIENT CARE TECHNICIAN Work Phone: [facility] 08-04-2022 13:58-0500 SaO2% (BldA) [Mass fraction] 98 % Jayden Connelly WELDER FITTER APPRENTICE.PATIENT CARE TECHNICIAN Work Phone: [facility] 08-04-2022 13:58-0500 Systolic blood pressure 149 mm[Hg] Jayden Connelly WELDER FITTER APPRENTICE.PATIENT CARE TECHNICIAN Work Phone: [facility] 06-23-2022 13:57-0500 Body height 158.8 cm Rinku Ramsey MD Work Phone: [facility] 06-23-2022 13:57-0500 Body temperature 97.59 [degF] Rinku Ramsey MD Work Phone: [facility] 06-23-2022 13:57-0500 Body weight 88.27 kg Rinku Ramsey MD Work Phone: [facility] 06-23-2022 13:57-0500 Diastolic blood pressure 88 mm[Hg] Rinku Ramsey MD Work Phone: [facility] 06-23-2022 13:57-0500 Heart rate 66 /min Rinku Ramsey MD Work Phone: [facility] 06-23-2022 13:57-0500 Respiratory rate 16 /min Rinku Ramsey MD Work Phone: [facility] 06-23-2022 13:57-0500 SaO2% (BldA) [Mass fraction] 100 % Rinku Ramsey MD Work Phone: [facility] 06-23-2022 13:57-0500 Systolic blood pressure 156 mm[Hg] Rinku Ramsey MD Work Phone: [facility] 05-12-2022 14:19-0400 Diastolic blood pressure 80 mm[Hg] Jayden Connelly WELDER FITTER APPRENTICE.PATIENT CARE TECHNICIAN Work Phone: [facility] 05-12-2022 14:19-0400 Systolic blood pressure 158 mm[Hg] Jayden Connelly WELDER FITTER APPRENTICE.PATIENT CARE TECHNICIAN Work Phone: [facility] 05-12-2022 14:13-0400 Body height 158.8 cm Jayden Connelly APRN.PATIENT CARE TECHNICIAN Work Phone: [facility] 05-12-2022 14:13-0400 Body temperature 97.81 [degF] Jayden Connelly APRN.PATIENT CARE TECHNICIAN Work Phone: [facility] 05-12-2022 14:13-0400 Body weight 88.27 kg Jayden Connelly APRN.PATIENT CARE TECHNICIAN Work Phone: [facility] 05-12-2022 14:13-0400 Heart rate 76 /min Jayden Connelly APRN.PATIENT CARE TECHNICIAN Work Phone: [facility] 05-12-2022 14:13-0400 Respiratory rate 18 /min Jayden Connelly APRN.PATIENT CARE TECHNICIAN Work Phone: [facility] 05-12-2022 14:13-0400 SaO2% (BldA) [Mass fraction] 98 % Jayden Connelly APRN.PATIENT CARE TECHNICIAN Work Phone: [facility] 03-31-2022 13:55-0400 Body height 158.8 cm Rinku Ramsey MD Work Phone: [facility] 03-31-2022 13:55-0400 Body temperature 97.7 [degF] Rinku Ramsey MD Work Phone: [facility] 03-31-2022 13:55-0400 Body weight 88.72 kg Rinku Ramsey MD Work Phone: [facility] 03-31-2022 13:55-0400 Diastolic blood pressure 83 mm[Hg] Rinku Ramsey MD Work Phone: [facility] 03-31-2022 13:55-0400 Heart rate 66 /min Rinku Ramsey MD Work Phone: [facility] 03-31-2022 13:55-0400 Respiratory rate 16 /min Rinku Ramsey MD Work Phone: [facility] 03-31-2022 13:55-0400 SaO2% (BldA) [Mass fraction] 95 % Rinku Ramsey MD Work Phone: [facility] 03-31-2022 13:55-0400 Systolic blood pressure 173 mm[Hg] Rinku Ramsey MD Work Phone: [facility] 02-11-2022 13:41-0400 Body height 158.8 cm Jayden Connelly APRN.PATIENT CARE TECHNICIAN Work Phone: [facility] 02-11-2022 13:41-0400 Body temperature 97.3 [degF] Jayden Connelly APRN.PATIENT CARE TECHNICIAN Work Phone: [facility] 02-11-2022 13:41-0400 Body weight 89.18 kg Jayden Connelly APRN.PATIENT CARE TECHNICIAN Work Phone: [facility] 02-11-2022 13:41-0400 Diastolic blood pressure 83 mm[Hg] Jayden Connelly APRN.PATIENT CARE TECHNICIAN Work Phone: [facility] 02-11-2022 13:41-0400 Heart rate 79 /min Jayden Connelly APRN.PATIENT CARE TECHNICIAN Work Phone: [facility] 02-11-2022 13:41-0400 Respiratory rate 16 /min Jayden Connelly APRN.PATIENT CARE TECHNICIAN Work Phone: [facility] 02-11-2022 13:41-0400 SaO2% (BldA) [Mass fraction] 99 % Jayden Connelly APRN.PATIENT CARE TECHNICIAN Work Phone: [facility] 02-11-2022 13:41-0400 Systolic blood pressure 159 mm[Hg] Jayden Connelly APRN.PATIENT CARE TECHNICIAN Work Phone: [facility] 12-17-2021 14:41-0400 Body height 158.8 cm Jayden Connelly APRN.PATIENT CARE TECHNICIAN Work Phone: [facility] 12-17-2021 14:41-0400 Body temperature 97.3 [degF] Jayden Connelly APRN.PATIENT CARE TECHNICIAN Work Phone: [facility] 12-17-2021 14:41-0400 Body weight 87.64 kg Jayden Connelly APRN.PATIENT CARE TECHNICIAN Work Phone: [facility] 12-17-2021 14:41-0400 Diastolic blood pressure 80 mm[Hg] Jayden Connelly APRN.PATIENT CARE TECHNICIAN Work Phone: [facility] 12-17-2021 14:41-0400 Heart rate 75 /min Jayden Connelly APRN.PATIENT CARE TECHNICIAN Work Phone: [facility] 12-17-2021 14:41-0400 Respiratory rate 16 /min Jayden Connelly APRN.PATIENT CARE TECHNICIAN Work Phone: [facility] 12-17-2021 14:41-0400 SaO2% (BldA) [Mass fraction] 96 % Jayden Connelly APRN.PATIENT CARE TECHNICIAN Work Phone: [facility] 12-17-2021 14:41-0400 Systolic blood pressure 154 mm[Hg] Jayden Connelly APRN.PATIENT CARE TECHNICIAN Work Phone: [facility] 11-10-2021 15:00-0400 Body height 160.02 cm Gilson Zeinab Other [facility] Other 11-10-2021 15:00-0400 Body mass index (BMI) [Ratio] 34.18 kg/m2 Gilson Zeinab Other [facility] Other 11-10-2021 15:00-0400 Body temperature 97.1 [degF] Gilson Zeinab Other [facility] Other 11-10-2021 15:00-0400 Body weight 87.54 kg Gilson Zeinab Other [facility] Other 11-10-2021 15:00-0400 Diastolic blood pressure 70 mm[Hg] Gilson Zeinab Other [facility] Other 11-10-2021 15:00-0400 Respiratory rate 18 /min Gilson Zeinab Other [facility] Other 11-10-2021 15:00-0400 SaO2% (BldA) [Mass fraction] 96 % Gilson Zeinab Other [facility] Other 11-10-2021 15:00-0400 Systolic blood pressure 154 mm[Hg] Gilson Zeinab Other [facility] Other 10-28-2021 11:27-0400 Body height 158.8 cm Rinku Ramsey MD Work Phone: [facility] 10-28-2021 11:27-0400 Body temperature 97.39 [degF] Rinku Ramsey MD Work Phone: [facility] 10-28-2021 11:27-0400 Body weight 87.82 kg Rinku Ramsey MD Work Phone: [facility] 10-28-2021 11:27-0400 Diastolic blood pressure 91 mm[Hg] Rinku Ramsey MD Work Phone: [facility] 10-28-2021 11:27-0400 Heart rate 75 /min Rinku Ramsey MD Work Phone: [facility] 10-28-2021 11:27-0400 Respiratory rate 16 /min Rinku Ramsey MD Work Phone: [facility] 10-28-2021 11:27-0400 SaO2% (BldA) [Mass fraction] 96 % Rinku Ramsey MD Work Phone: [facility] 10-28-2021 11:27-0400 Systolic blood pressure 157 mm[Hg] Rinku Ramsey MD Work Phone: [facility] Encounters Encounter Date Encounter Type Care Provider Facility Start: 12-25-2024 End: 12-25-2024 Bamboo flowsheet Stephanie Dumont NP Work Phone: [facility] Start: 12-25-2024 End: 12-25-2024 Bamboo flowsheet Stephanie Dumont DIFFUSION FURNACE OPERATOR Work Phone: [facility] Start: 12-25-2024 End: 12-25-2024 Office outpatient visit 25 minutes Stephanie Dumont NP Work Phone: [facility] Comment on above: Diarrhea, unspecifie d type (Primary Dx); Chronic kidney disease, stage 3b ([facility]-HCC); Coronary artery disease involving stockbridge coronary artery 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 ; Essential hypertension ; Obesity (BMI 30-39.9); Pre-diabetes; Chronic ITP (idiopathic thrombocytopenia) (HCC); Tobacco dependence; Thyroid nodule Start: 12-20-2024 End: 12-20-2024 ambulatory [facility] Work Phone: Hematology/Oncology Comment on above: 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 c hronic kidney disease (HCC) (Primary Dx); 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 deficiency; Abnormal weight loss; Other systemic lupus erythematosus with other organ involvement (HCC); Thrombocytopenia; Chronic ITP (idiopathic thrombocytopenia) (HCC) Start: 12-18-2024 End: 12-18-2024 ambulatory [facility] Start: 12-18-2024 Encounter for other preprocedural examination STEPHANIE DUMONT [facility] Start: 12-12-2024 End: 12-12-2024 Clinisync Result Encounter Stephanie Dumont DIFFUSION FURNACE OPERATOR Work Phone: [facility] Unsolicited Start: 12-12-2024 End: 12-12-2024 Clinisync Result Encounter Stephanie Dumont DIFFUSION FURNACE OPERATOR Work Phone: [facility] Unsolicited Start: 2024 End: 2024 ambulatory [facility] Work Phone: Hematology/Oncology Comment on above: 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 c hronic kidney disease (HCC) (Primary Dx) Start: 12-05-2024 ambulatory SUSANNA GRAF [facility] Start: 11-26-2024 End: 11-26-2024 Office outpatient visit 25 minutes Susanna Graf MD Work Phone: [facility] Comment on above: Cholesteatoma of lef t ear (Primary Dx); 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; Preoperative clearance; Thrombocytopenia Start: 11-26-2024 End: 11-26-2024 Preoperative state Susanna Graf MD Work Phone: [facility] Start: 11-26-2024 End: 11-26-2024 ambulatory [facility] Start: 11-22-2024 End: 11-22-2024 Nursing evaluation of patient and report Debora Nurse Clarence Gaona Work Phone: Hematology/Oncology Comment on above: 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 deficiency (Primary Dx); Thrombocytopenia; Abnormal weight loss; Chronic ITP (idiopathic thrombocytopenia) (HCC) Start: 11-22-2024 End: 11-22-2024 ambulatory RINKU RAMSEY Facility:[facility] Start: 11-22-2024 End: 11-22-2024 Office outpatient visit 25 minutes Rinku Ramsey MD Work Phone: Hematology/Oncology Comment on above: Chronic ITP (idiopat hic thrombocytopenia) (HCC) (Primary Dx); Stage 3b chronic kidney disease (HCC); 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); 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 deficiency; Systemic lupus erythematosus, unspecified SLE type, unspecified organ involvement status ([facility]) Start: 11-22-2024 End: 11-22-2024 [facility] Facility:[facility] Start: 11-06-2024 End: 11-07-2024 Social Work Katheryn Hobson [facility] Hematology/Oncology Start: 10-11-2024 End: 10-11-2024 Nursing evaluation of patient and report Debora Gaona Work Phone: Hematology/Oncology Comment on above: 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 deficiency (Primary Dx); Thrombocytopenia; Abnormal weight loss; Chronic ITP (idiopathic thrombocytopenia) ([facility]) Start: 10-11-2024 End: 10-11-2024 Office outpatient visit 25 minutes Li Frank APRN.CNP Work Phone: Hematology/Oncology Comment on above: 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 deficiency (Primary Dx); Thrombocytopenia Start: 10-11-2024 End: 10-11-2024 [facility] Facility:[facility] Start: 10-07-2024 End: 10-07-2024 Refill Stephanie Dumont DIFFUSION FURNACE OPERATOR Work Phone: [facility] Comment on above: Coronary artery dise ase involving stockbridge coronary artery 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 ([facility]) Start: 09-25-2024 End: 09-25-2024 ambulatory MAR H TIMMIS Not Available Start: 09-17-2024 End: 09-17-2024 Clinisync Result Encounter Generic External Data Provider [facility] External [facility] Unsolicited Start: 09-17-2024 End: 09-17-2024 Clinisync Result Encounter Generic External Data Provider [facility] External [facility] Unsolicited Start: 08-30-2024 End: 08-30-2024 Nursing evaluation of patient and report Debora Gaona Work Phone: Hematology/Oncology Comment on above: 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 deficiency (Primary Dx); Thrombocytopenia (HCC); Abnormal weight loss; Chronic ITP (idiopathic thrombocytopenia) (HCC) Start: 08-30-2024 End: 08-30-2024 Office outpatient visit 25 minutes Li Frank APRN.CNP Work Phone: Hematology/Oncology Comment on above: 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 deficiency (Primary Dx); Thrombocytopenia (HCC); Chronic ITP (idiopathic thrombocytopenia) (HCC) Start: 08-30-2024 End: 08-30-2024 ambulatory RINKU ABHYFABIOLA Facility:[facility] Start: 08-21-2024 End: 08-21-2024 ambulatory [facility] Work Phone: Start: 08-21-2024 End: 08-21-2024 Patient encounter procedure [facility] [place] Work Phone: Start: 08-15-2024 End: 08-15-2024 Bamboo flowsheet Stephanie Dumont NP Work Phone: [facility] Start: 08-15-2024 End: 08-15-2024 Bamboo flowsheet Stephanie Dumont NP Work Phone: [facility] Start: 08-15-2024 End: 08-15-2024 Office outpatient visit 25 minutes Stephanie Dumont NP Work Phone: [facility] Comment on above: Essential hypertensi on (CMS/HCC) (Primary Dx); Systemic lupus erythematosus, unspecified (CMS/HCC); Qualitative platelet defects (CMS/HCC); Chronic kidney disease, stage 3a (HCC) (CMS/HCC); Immune thrombocytopenic purpura (CMS/HCC); Secondary pulmonary arterial hypertension (CMS/HCC); Coronary artery disease involving stockbridge coronary artery 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 (CMS/HCC); PAH (pulmonary artery hypertension) (CMS/HCC); Obesity (BMI 30-39.9); Pre-diabetes; Tobacco dependence; Multiple lung nodules on CT; Family history of cancer Start: 08-15-2024 End: 08-15-2024 ambulatory STEPHANIE DUMONT Not Available Start: 08-12-2024 End: 08-12-2024 ambulatory GILSON ARRIOLA [facility] [place] Start: 07-23-2024 End: 07-31-2024 Telephone encounter Krista Harden [facility] Work Phone: [facility] Comment on above: Medication Assistanc e Program; Medication Authorization ([employer] APPROVED) Start: 07-22-2024 End: 07-22-2024 ambulatory Krista Harden [facility] Work Phone: [facility] Start: 07-22-2024 End: 07-22-2024 E-mail encounter from caregiver Krista Harden [facility] Work Phone: [facility] Start: 07-19-2024 End: 07-19-2024 Refill Jayden Connelly APRN.PATIENT CARE TECHNICIAN Work Phone: Hematology/Oncology Comment on above: Refill Request Start: 07-18-2024 End: 07-18-2024 ambulatory MASSIEL BALLARD [facility] Start: 07-11-2024 End: 07-11-2024 Nursing evaluation of patient and report Debora Gaona Work Phone: Hematology/Oncology Comment on above: 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 deficiency (Primary Dx); Thrombocytopenia (HCC); Abnormal weight loss; Chronic ITP (idiopathic thrombocytopenia) (HCC) Start: 07-11-2024 End: 07-11-2024 Office outpatient visit 25 minutes Li Frank APRN.CNP Work Phone: Hematology/Oncology Comment on above: 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 deficiency (Primary Dx); Chronic ITP (idiopathic thrombocytopenia) (HCC) Start: 07-11-2024 End: 07-11-2024 ambulatory RINKU RAMSEY Facility:[facility] Start: 05-31-2024 ambulatory MASSIEL BALLARD [facility] Start: 05-30-2024 End: 05-30-2024 Nursing evaluation of patient and report Ma Nurse Clarence Gaona Work Phone: Hematology/Oncology Comment on above: 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 deficiency (Primary Dx); Thrombocytopenia (HCC); Lupus; Abnormal weight loss; Chronic ITP (idiopathic thrombocytopenia) (HCC) Start: 05-30-2024 End: 05-30-2024 Office outpatient visit 15 minutes Rinku Ramsey MD Work Phone: Hematology/Oncology Comment on above: 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 deficiency (Primary Dx); Chronic ITP (idiopathic thrombocytopenia) (HCC); Thrombocytopenia (HCC); Hyperglycemia; Obstructive sleep apnea syndrome Start: 05-30-2024 End: 05-30-2024 ambulatory RINKU RAMSEY Facility:[facility] Start: 05-29-2024 End: 05-29-2024 Orders Only Stephanie Dumont NP Work Phone: [facility] Comment on above: Multiple lung nodule s on CT (Primary Dx) Start: 05-28-2024 End: 05-28-2024 Orders Only Stephanie Dumont DIFFUSION FURNACE OPERATOR Work Phone: [facility] Comment on above: Multiple lung nodule s on CT (Primary Dx) Start: 05-24-2024 End: 05-24-2024 Telephone encounter Stephanie Dumont DIFFUSION FURNACE OPERATOR Work Phone: [facility] Start: 05-23-2024 End: 05-23-2024 Telephone encounter Stephanie Dumont DIFFUSION FURNACE OPERATOR Work Phone: [facility] Start: 05-21-2024 End: 05-21-2024 ambulatory [facility] Start: 05-15-2024 End: 05-15-2024 Office outpatient visit 25 minutes Mar Mayo MD Work Phone: [facility] Comment on above: Hyperthyroidism (CMS /HCC) (Primary Dx); Thyroid nodule (CMS/HCC) Start: 05-15-2024 End: 05-15-2024 Orders Only Stephanie Dumont DIFFUSION FURNACE OPERATOR Work Phone: [facility] Comment on above: Multiple lung nodule s on CT (Primary Dx) Start: 05-14-2024 End: 05-14-2024 Patient encounter procedure Stephanie Dumont NP Work Phone: [facility] Comment on above: Encounter for subseq uent annual wellness visit (AWV) in Medicare patient (Primary Dx); Tobacco dependence; Pre-diabetes; Obesity (BMI 30-39.9); Age-related osteoporosis without current pathological fracture ([facility]); Coronary artery disease involving stockbridge coronary artery 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 ([facility]); Essential hypertension ([facility]) Start: 05-14-2024 End: 05-14-2024 ambulatory STEPHANIE DUMONT Not Available Start: 05-13-2024 End: 05-13-2024 Tamy Avalos DO Work Phone: [facility] Start: 05-13-2024 End: 05-13-2024 Tamy Avalos DO Work Phone: [facility] Start: 05-13-2024 End: 05-13-2024 ambulatory HERSON HIGGINS Not Available Start: 05-13-2024 End: 05-13-2024 Office outpatient visit 25 minutes Jr. Herson Avalos DO Work Phone: [facility] Comment on above: Left leg pain (Prima ry Dx); Lumbar pain; Weakness of left lower extremity Start: 05-09-2024 End: 05-09-2024 [facility] [place] Start: 05-09-2024 End: 05-09-2024 amb[facility] Start: 05-07-2024 End: 05-07-2024 Orders Only Stephanie Dumont DIFFUSION FURNACE OPERATOR Work Phone: [facility] Comment on above: Multiple lung nodule s on CT (Primary Dx) Start: 05-02-2024 End: 05-02-2024 ambulatory BLAISE ALEX [facility] Start: 05-02-2024 End: 05-02-2024 ambulatory BLAISE ALEX [facility] Start: 04-25-2024 End: 04-25-2024 Telephone encounter Stephanie Dumont DIFFUSION FURNACE OPERATOR Work Phone: [facility] Start: 04-24-2024 End: 04-24-2024 Office outpatient visit 25 minutes Stephanie Dumont DIFFUSION FURNACE OPERATOR Work Phone: [facility] Comment on above: Thyroid nodule (CMS/ HCC) (Primary Dx); Immune thrombocytopenic purpura (CMS/HCC); Coronary artery disease involving stockbridge coronary artery 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 (CMS/HCC); Pre-diabetes; Obesity (BMI 30-39.9); Diarrhea, unspecified type Start: 04-24-2024 End: 04-24-2024 ambulatory STEPHANIE DUMONT Not Available Start: 04-18-2024 End: 04-18-2024 Nursing evaluation of patient and report Dc Nurse Clarence Gaona Work Phone: Hematology/Oncology Comment on above: 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 deficiency (Primary Dx); Thrombocytopenia (HCC); Lupus; Abnormal weight loss; Chronic ITP (idiopathic thrombocytopenia) (HCC) Start: 04-18-2024 End: 04-18-2024 Office outpatient visit 15 minutes Rinku Ramsey MD Work Phone: Hematology/Oncology Comment on above: Hyperglycemia (Prima ry Dx); Chronic ITP (idiopathic thrombocytopenia) (HCC); 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 deficiency; Obstructive sleep apnea syndrome Start: 04-18-2024 End: 04-18-2024 ambulatory RINKU RAMSEY Facility:[facility] Start: 04-17-2024 End: 04-17-2024 ambulatory STEPHANIE DUMONT [facility] Start: 04-16-2024 End: 04-16-[address] [facility] Work Phone: Start: 04-16-2024 End: 04-16-2024 Departed Referred MD Simon Zuniga Work Phone: [facility] Start: 04-10-2024 End: 04-10-2024 Refill Stephanie Dumont NP Work Phone: [facility] Comment on above: Coronary artery dise ase involving stockbridge coronary artery 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 (CMS/HCC) Start: 04-09-2024 End: 04-09-2024 Telephone encounter Desirae Pimentel RN Hematology/Oncology Comment on above: Thyroid fine needle biopsy at [facility] Start: 04-09-2024 End: 04-09-2024 ambulatory BLAISE ALEX Not Available Start: 04-09-2024 End: 04-09-2024 ambulatory BLAISE ALEX Not Available Start: 04-09-2024 End: 04-09-2024 Office outpatient visit 25 minutes Blaise Alex PA Work Phone: [facility] Comment on above: Left leg pain (Prima ry Dx) Start: 04-05-2024 End: 04-05-2024 Orders Only Stephanie Dumont DIFFUSION FURNACE OPERATOR Work Phone: [facility] Comment on above: Disease of thyroid g land (CMS/HCC) (Primary Dx) Start: 04-05-2024 End: 04-05-2024 Patient encounter procedure [facility] Provider [facility] Department Start: 04-04-2024 End: 04-04-2024 Bamboo flowsheet Stephanie Dumont NP Work Phone: [facility] Start: 04-04-2024 End: 04-04-2024 External Result Encounter Stephanie Dumont NP Work Phone: [facility] Unsolicited Start: 04-04-2024 End: 04-04-2024 External Result Encounter Stephanie Dumont NP Work Phone: [facility] External [facility] Unsolicited Start: 04-04-2024 End: 04-04-2024 ambulatory STEPHANIE DUMONT Not Available Start: 04-04-2024 End: 04-04-2024 Office outpatient visit 25 minutes Stephanie Dumont NP Work Phone: [facility] Comment on above: Coronary artery dise ase involving stockbridge coronary artery 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 (CMS/HCC) (Primary Dx); Elevated glucose level; Essential hypertension (CMS/HCC); Encounter for screening mammogram for malignant neoplasm of breast; Other chest pain; Disease of thyroid gland (CMS/HCC); Obesity (BMI 30-39.9); Posterior left knee pain Start: 04-02-2024 End: 04-05-2024 Refill Krista JimJose Enriquekrishna [facility] Work Phone: [facility] Comment on above: Refill Request Coronary artery dise ase involving stockbridge coronary artery 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 (CMS/HCC) Start: 03-27-2024 End: 03-27-2024 Orders Only Stephanie Dumont DIFFUSION FURNACE OPERATOR Work Phone: [facility] Comment on above: Obstructive sleep ap emory syndrome (Primary Dx); PAH (pulmonary artery hypertension) (CMS/HCC) Start: 03-05-2024 End: 03-05-2024 Nursing evaluation of patient and report Debora Nurse Clarence Gaona Work Phone: Hematology/Oncology Comment [...] Start: 03-05-2024 End: 03-05-2024 ambulatory RINKU RAMSEY Facility:[facility] Start: 03-04-2024 End: 03-04-2024 Bamboo flowsheet Stephanie Dumont DIFFUSION FURNACE OPERATOR Work Phone: [facility] Start: 03-04-2024 End: 03-04-2024 Bamboo flowsheet Stephanie Dumont DIFFUSION FURNACE OPERATOR Work Phone: [facility] Start: 03-04-2024 End: 03-04-2024 Office outpatient visit 25 minutes Stephanie Dumont DIFFUSION FURNACE OPERATOR Work Phone: [facility] Comment on above: Coronary artery dise ase involving stockbridge coronary artery 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 (CMS/HCC) (Primary Dx); Calcification of aortic valve; Essential hypertension (CMS/HCC); Thyroid nodule (CMS/HCC) Start: 03-04-2024 End: 03-04-2024 ambulatory STEPHANIE TIM Not Available Start: 03-01-2024 End: 03-01-2024 ambulatory STEPHANIE DUMONT [facility] Start: 02-26-2024 End: 02-26-2024 Orders Only Stephanie Dumont DIFFUSION FURNACE OPERATOR Work Phone: [facility] Comment on above: Thyroid nodule (CMS/ HCC) (Primary Dx); Calcification of aortic valve; Coronary artery disease involving stockbridge coronary artery 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 (CMS/HCC) Start: 02-12-2024 Non-patient / Non-visit MD Weathers Work Phone: [facility] Work Phone: Start: 02-12-2024 End: 02-12-2024 ambulatory STEPHANIE DUMONT Not Available Start: 02-06-2024 End: 02-06-2024 ambulatory [facility] Ambulatory Start: 02-02-2024 End: 02-02-2024 Office outpatient visit 15 minutes Rinku Ramsey MD Work Phone: Hematology/Oncology Comment on above: Chronic ITP (idiopat hic thrombocytopenia) (HCC) (Primary Dx); Essential hypertension; Obstructive sleep apnea syndrome; Stage 3b chronic kidney disease (HCC) Start: 02-02-2024 End: 02-02-2024 ambulatory RINKU RAMSEY Facility:[facility] Start: 01-25-2024 Refill Desirae Pimentel RN Hemat ology/Oncology Comment on above: Refill Request Start: 01-19-2024 Refill Jayden Connelly APRN.CNP Work Phone: Hematology/Oncology Comment on above: Refill Request Start: 01-02-2024 End: 01-02-2024 Postop follow up visit related to original px Emani Gutiérrez MD Work Phone: [facility] Comment on above: Cholesteatoma of lef t ear (Primary Dx); Encounter for postoperative care Start: 01-02-2024 End: 01-02-2024 ambulatory EMANI GUTIÉRREZ [facility] Ambulatory Start: 12-18-2023 End: 12-18-2023 ambulatory [facility] Start: 12-18-2023 End: 12-18-2023 Encounter for other preprocedural examination [facility] Start: 12-18-2023 End: 12-18-2023 Preoperative state Susanna Graf MD Work Phone: [facility] Start: 12-18-2023 End: 12-18-2023 Subsequent hospital visit by physician Susanna Graf MD Work Phone: [facility] Comment on above: Cholesteatoma of lef t ear (Primary Dx); Preoperative clearance; Post-operative pain Start: 12-15-2023 End: 12-15-2023 Nursing evaluation of patient and report Debora Gaona Work Phone: Hematology/Oncology Comment on above: Preoperative examina tion (Primary Dx) Start: 12-15-2023 End: 12-15-2023 Preprocedural examination done Debora Gaona Work Phone: [facility] Start: 11-28-2023 Telephone encounter Emilia holder RN Work Phone: Hematology/Oncology Comment on above: Call Request Start: 11-28-2023 End: 11-28-2023 ambulatory STEPHANIE TIM Not Available Start: 11-24-2023 End: 11-24-2023 Office outpatient visit 25 minutes Rinku Ramsey MD Work Phone: Hematology/Oncology Comment on above: Chronic ITP (idiopat hic thrombocytopenia) (HCC) (Primary Dx); Stage 3b chronic kidney disease (HCC); Secondary hypertension; Obstructive sleep apnea syndrome Start: 11-14-2023 End: 11-14-2023 Subsequent hospital visit by physician Kely [id number] [facility] Comment on above: Cholesteatoma of lef t ear Start: 11-14-2023 End: 11-14-2023 Office outpatient new 45 minutes Susanna Graf MD Work Phone: [facility] Comment on above: Cholesteatoma of lef t ear; Perforation of left tympanic membrane Start: 10-13-2023 End: 10-13-2023 Office outpatient visit 15 minutes Ana Hernandez PA-C Work Phone: Hematology/Oncology Comment on above: Chronic ITP (idiopat hic thrombocytopenia) (HCC) (Primary Dx); Stage 3b chronic kidney disease (HCC); Secondary hypertension Start: 09-02-2023 Refill Rinku lawrence MD Work [...] [facility] Start: 08-23-2023 End: 08-23-2023 Office outpatient new 30 minutes Mar Mayo MD Work Phone: [facility] Comment on above: 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); Multiple perforations of left tympanic membrane Start: 08-19-2023 Chart abstracting Mar krause MD Work Phone: [facility] [place] Start: 08-16-2023 Bamboo flowsheet Karissa duran CCC-A Work Phone: [facility] Start: 08-16-2023 Bamboo flowsheet Karissavishal duran CCC-A Work Phone: [facility] Start: 08-16-2023 End: 08-16-2023 Clinical Support Karissa Astudillo CCC-A Work Phone: [facility] Comment on above: 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); Tympanic membrane perforation, left Start: 06-28-2023 Office outpatient vi sit 15 minutes Gilson Arriola [facility] [place] Start: 06-28-2023 End: 06-28-2023 ambulatory Gilson Arriola [facility] [employer] Other Start: 06-05-2023 End: 06-05-2023 ambulatory Ana Hernandez PA-C Work Phone: Hematology/Oncology Comment on above: Chronic ITP (idiopat hic thrombocytopenia) (HCC) (Primary Dx); Essential hypertension; Hypertension, unspecified type Start: 06-05-2023 End: 06-05-2023 Patient encounter procedure Ana Hernandez PA-C Work Phone: [facility] Start: 05-01-2023 Refill Krista Calvo [facility] Work Phone: Hematology/Oncology Comment on above: Refill Request Start: 04-20-2023 End: 04-20-2023 Office outpatient visit 25 minutes Rinku Ramsey MD Work Phone: Hematology/Oncology Comment on above: Chronic ITP (idiopat hic thrombocytopenia) (HCC) (Primary Dx); Essential hypertension Start: 04-19-2023 Telephone encounter Rinku hicks MD Work Phone: Hematology/Oncology Comment on above: Lab Orders Start: 04-05-2023 End: 04-05-2023 ambulatory Gilson Zeinab Other [employer] Other Start: 04-05-2023 Telephone encounter Gilson Zeinab [facility] Start: 03-14-2023 End: 03-14-2023 ambulatory Gilson Zeinab Other [employer] Other Start: 03-14-2023 Telephone encounter Gilson Zeinab [facility] Start: 03-09-2023 End: 03-09-2023 Office [...] Request Start: 09-07-2022 End: 09-07-2022 ambulatory Gilson Arriola Other [employer] Other Start: 09-07-2022 Office outpatient vi sit 25 minutes Gilson Arriola [facility] [place] Start: 08-29-2022 End: 08-29-2022 ambulatory NON STAFF [facility] Work Phone: Start: 08-29-2022 End: 08-29-2022 Patient encounter procedure MD Gilson Arriola Work Phone: [facility] [place] Work Phone: Start: 08-15-2022 Refill Jayden Connelly APRN.PATIENT CARE TECHNICIAN Work Phone: Hematology/Oncology Comment on above: Refill Request Start: 08-05-2022 Refill Jayden Connelly APRN.PATIENT CARE TECHNICIAN Work Phone: Hematology/Oncology Comment on above: Refill [...] [facility] Start: 08-04-2022 Telephone encounter Jayden christiansen APRN.PATIENT CARE TECHNICIAN Work Phone: Cancer [facility] Comment on above: Referral Information (Dermatology) Start: 07-24-2022 Refill Jayden Connelly APRN.PATIENT CARE TECHNICIAN Work Phone: Hematology/Oncology Comment on above: Refill [...] Refill Request Start: 06-15-2022 Refill Jayden Connelly APRN.PATIENT CARE TECHNICIAN Work Phone: Hematology/Oncology Comment on above: Refill Request Start: 05-20-2022 Refill Rinku lawrence MD Work Phone: Hematology/Oncology Comment on above: Refill Request Start: 05-12-2022 End: 05-12-2022 ambulatory Jayden Connelly APRN.PATIENT CARE TECHNICIAN Work Phone: Hematology/Oncology Comment on above: Chronic ITP (idiopat hic thrombocytopenia) (HCC) (Primary Dx); Obstructive sleep apnea syndrome; Essential hypertension Start: 05-12-2022 End: 05-12-2022 Patient encounter procedure Jayden Connelly APRN.STEPH Work Phone: [facility] Start: 04-24-2022 Refill Jayden Dayton WELDER FITTER APPRENTICE.PATIENT CARE TECHNICIAN Work Phone: Hematology/Oncology Comment on above: Refill [...] Refill Request Start: 03-05-2022 Refill Jayden Connelly WELDER FITTER APPRENTICE.PATIENT CARE TECHNICIAN Work Phone: Hematology/Oncology Comment on above: Refill Request Start: 02-11-2022 End: 02-11-2022 ambulatory Jayden Connelly APRN.PATIENT CARE TECHNICIAN Work Phone: Hematology/Oncology Comment on above: Chronic ITP (idiopat hic thrombocytopenia) (HCC) (Primary Dx); Essential hypertension; Obstructive sleep apnea syndrome; Systemic lupus erythematosus, unspecified SLE type, unspecified organ involvement status (HCC) Start: 02-11-2022 End: 02-11-2022 Patient encounter procedure Jayden Connelly APRN.PATIENT CARE TECHNICIAN Work Phone: [facility] Start: 02-03-2022 Refill Jayden Connelly WELDER FITTER APPRENTICE.PATIENT CARE TECHNICIAN Work Phone: Hematology/Oncology Comment on above: Refill Request Start: 01-15-2022 Refill Jayden Connelly WELDER FITTER APPRENTICE.PATIENT CARE TECHNICIAN Work Phone: Hematology/Oncology Comment on above: Refill Request Start: 01-09-2022 Refill Jayden Connelly APRN.PATIENT CARE TECHNICIAN Work Phone: Hematology/Oncology Comment on above: Refill Request Start: 12-17-2021 End: 12-17-2021 ambulatory Jayden Connelly APRN.PATIENT CARE TECHNICIAN Work Phone: Hematology/Oncology Comment on above: Chronic ITP (idiopat hic thrombocytopenia) (HCC) (Primary Dx); Hypertension, unspecified type; Essential hypertension; Obstructive sleep apnea syndrome; Lung nodules; Systemic lupus erythematosus, unspecified SLE type, unspecified organ involvement status (HCC) Start: 12-17-2021 End: 12-17-2021 Patient encounter procedure Jayden Connelly APRN.PATIENT CARE TECHNICIAN Work Phone: [place] Start: 11-10-2021 End: 11-10-2021 ambulatory Gilson Zeinab Other [employer] Other Start: 11-10-2021 Office outpatient ne w 45 minutes Gilson Zeinab [facility] [place] Start: 10-28-2021 End: 10-28-2021 ambulatory Rinku Ramsey MD Work Phone: Hematology/Oncology Comment on above: Chronic ITP (idiopat hic thrombocytopenia) (HCC) (Primary Dx); Essential hypertension; Obstructive sleep apnea syndrome; Lung nodules; Systemic lupus erythematosus, unspecified SLE type, unspecified organ involvement status (HCC) Start: 10-28-2021 End: 10-28-2021 Patient encounter procedure Rinku Ramsey MD Work Phone: [place] Start: 10-25-2021 ambulatory Mary Ellen Tidwell MA [facility] Comment on above: Population Health Na vigation Outreach (ACO PCP) Start: 10-19-2021 Refill Jayden Connelly APRN.PATIENT CARE TECHNICIAN Work Phone: Hematology/Oncology Comment on above: Refill Request Start: 05-07-2021 Telephone encounter Luanne Salcedo [facility] Work Phone: [facility] Comment on above: Medication Follow-up ([place] free drug application faxed) Start: 05-24-2016 End: 05-25-2016 Ambulatory COTY WRIGHT Facility:[facility] Procedures Date Procedure Procedure Detail Performing Clinician Start: 12-25-2024 Hemoglobin glycosylated a1c Stephanie Dumont DIFFUSION FURNACE OPERATOR Work Phone: Start: 12-12-2024 CT CHEST WO CON Stephanie sarmiento DIFFUSION FURNACE OPERATOR Work Phone: Start: 09-17-2024 Us soft tissue head & neck real time imge docm Generic External Data Provider Start: 05-13-2024 Radex spine lumbosac ral 2/3 views Jr. Herson Avalos DO Work Phone: Start: 04-17-2024 Mammography Stephanie feldman DIFFUSION FURNACE OPERATOR Work Phone: Start: 04-04-2024 Urnls dip stick/tabl et rgnt non-auto w/o micrscp Stephanie Dumont DIFFUSION FURNACE OPERATOR Work Phone: Start: 12-18-2023 PULSE OXIMETRY, CONTINUOUS Lizeth Woodward MD Work Phone: Start: 12-15-2023 Ecg routine ecg w/le ast 12 lds i&r only [facility] Provider Start: 11-14-2023 Ct orbit sella/post fossa/ear w/o contrast matrl Susanna Graf MD Work Phone: Start: 08-16-2023 AUDITORY FUNCTION TESTS Karissa Astudillo CCC-A Work Phone: Start: 05-19-2023 Mammography Karissa Hussein CCC-A Work Phone: Start: 08-29-2022 Ultrasonography of b ilateral kidneys MD Gilson Arriola Work Phone: Start: 07-25-2022 Colonoscopy Jayden christiansen WELDER FITTER APPRENTICE.PATIENT CARE TECHNICIAN Work Phone: Start: 02-11-2022 Adult depression scr eening assessment Jayden Connelly WELDER FITTER APPRENTICE.PATIENT CARE TECHNICIAN Work Phone: Start: 08-05-2021 Adult depression scr eening assessment Jayden Connelly WELDER FITTER APPRENTICE.PATIENT CARE TECHNICIAN Work Phone: Start: 03-30-2017 Lipid 1996 panel - S henok or Plasma Rinku Ramsey MD Work Phone: Plan of Treatment Date Care Activity Detail Author Start: 07-25-2032 Screening for malignant neoplasm of colon [facility] Start: 12-07-2027 Diabetes Screening Diabetes Screening [facility] Start: 11-23-2027 Diabetes Screening Diabetes Screening [facility] Start: 10-12-2027 Diabetes Screening Diabetes Screening [facility] Start: 08-30-2027 Diabetes Screening Diabetes Screening [facility] Start: 07-11-2027 Diabetes Screening Diabetes Screening [facility] Start: 05-30-2027 Diabetes Screening Diabetes Screening [facility] Start: 04-18-2027 Diabetes Screening Diabetes Screening [facility] Start: 03-05-2027 Diabetes Screening Diabetes Screening [facility] Start: 02-01-2027 Diabetes Screening Diabetes Screening [facility] Start: 12-14-2026 Diabetes Screening Diabetes Screening [facility] Start: 11-23-2026 Diabetes Screening Diabetes Screening [facility] Start: 10-12-2026 Diabetes Screening Diabetes Screening [facility] Start: 08-28-2026 Diabetes Screening Diabetes Screening [facility] Start: 06-05-2026 Diabetes Screening Diabetes Screening [facility] Start: 04-20-2026 Diabetes Screening Diabetes Screening [facility] Start: 03-09-2026 DIABETES SCREEN DIABETES SCREEN [facility] Start: 03-09-2026 Diabetes Screening Diabetes Screening [facility] Start: 01-26-2026 DIABETES SCREEN DIABETES SCREEN [facility] Start: 12-20-2025 Complete blood count Hemoglobin/Hematocrit [facility] Start: 12-15-2025 DIABETES SCREEN DIABETES SCREEN [facility] Start: 2025 Complete blood count Hemoglobin/Hematocrit [facility] Start: 2025 Creatinine measurement Serum Creatinine [facility] Start: 11-22-2025 Complete blood count Hemoglobin/Hematocrit [facility] Start: 11-22-2025 Creatinine measurement Serum Creatinine [facility] Start: 10-27-2025 DIABETES SCREEN DIABETES SCREEN [facility] Start: 09-15-2025 DIABETES SCREEN DIABETES SCREEN [facility] Start: 08-30-2025 BP Controlled (<130/80) BP Controlled (<130/80) [facility] Start: 08-04-2025 DIABETES SCREEN DIABETES SCREEN [facility] Start: 06-23-2025 DIABETES SCREEN DIABETES SCREEN [facility] Start: 05-14-2025 Medicare Annual Wellness (AWV) Medicare Annual Wellness (AWV) [facility] Start: 05-12-2025 DIABETES SCREEN DIABETES SCREEN [facility] Start: 04-18-2025 Hemoglobin A1c measurement Diabetes: Hemoglobin A1C [facility] Start: 04-17-2025 Screening for malignant neoplasm of breast [facility] Start: 04-02-2025 End: 04-02-2025 Patient encounter procedure 04/02/2025 11:10 AM EDT Office Visit [facility] [address] [place] [id number] Mar Mayo MD [address] [place] [address] [facility] Start: 03-31-2025 DIABETES SCREEN DIABETES SCREEN [facility] Start: 03-05-2025 BP Controlled (<130/80) BP Controlled (<130/80) [facility] Start: 02-11-2025 DIABETES SCREEN DIABETES SCREEN [facility] Start: 02-05-2025 Subsequent hospital visit by physician 02/05/2025 Hospital Encounter [facility] [place] [address] [place] [address] [place] [address] [place], [place] [id number] [facility] [place] Start: 01-03-2025 End: 01-03-2025 Follow-up encounter Hematology/Oncology Comment on above: 6 week follow up, labs, B12 & Aranesp Start: 01-03-2025 End: 01-03-2025 Patient encounter procedure 01/03/2025 1:45 PM EDT Office Visit [facility] [address] [place] [address] [place] [address] 6 week follow up, labs, B12 & Aranesp [facility] Comment on above: 6 week follow up, labs, B12 & Aranesp Start: 12-25-2024 End: 12-25-2025 Thyrotropin [Units/volume] in Serum or Plasma TSH Lab Routine Thyroid nodule Expected: 12/25/2024 (Approximate), Expires: 12/25/2025 [facility] Work Phone: Comment on above: Expected: 12/25/2024 (Approximate), Expi res: 12/25/2025 Start: 12-25-2024 End: 12-25-2025 Thyroxine (T4) free [Mass/volume] in Serum or Plasma T4, free Lab Routine Thyroid nodule Expected: 12/25/2024 (Approximate), Expires: 12/25/2025 [facility] Comment on above: Expected: 12/25/2024 (Approximate), Expi res: 12/25/2025 Start: 12-25-2024 End: 12-25-2025 Triiodothyronine (T3) Free [Mass/volume] in Serum or Plasma T3, free Lab Routine Thyroid nodule Expected: 12/25/2024 (Approximate), Expires: 12/25/2025 [facility] Comment on above: Expected: 12/25/2024 (Approximate), Expi res: 12/25/2025 Start: 12-25-2024 End: 12-25-2024 Patient encounter procedure [facility] Comment on above: Obstructive sleep apnea syndrome (Primar y Dx); Chronic kidney disease, stage 3b (CMS-HCC); Multiple lung nodules on CT; Coronary artery disease involving stockbridge coronary artery 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 ; Essential hypertension ; Obesity (BMI 30-39.9); Pre-diabetes; Chronic ITP (idiopathic thrombocytopenia) (HCC); Tobacco dependence; Thyroid nodule Start: 12-20-2024 End: 12-20-2024 ambulatory 12/20/2024 1:45 PM EDT [facility] Hematology/Oncology [address] [place] [address] Lab & [facility] Hematology/Oncology Comment on above: Lab & Aranesp Start: 12-20-2024 End: 12-20-2024 Patient encounter procedure 12/20/2024 1:30 PM EDT Office Visit [facility] [address] [place] [address] Lab & Aranesp [facility] Comment on above: Lab & Aranesp Start: 12-17-2024 DIABETES SCREEN DIABETES SCREEN [facility] Start: 2024 End: 11-22-2025 Cobalamin (Vitamin B12) [Mass/volume] in Serum or Plasma VITAMIN B12 Lab Routine Stage 3b chronic kidney disease (HCC) 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) Expected: 2024 (Approximate), Expires: 11/22/2025 [facility] Comment on above: Expected: 2024 (Approximate), Expi res: 11/22/2025 Start: 2024 End: 11-22-2025 Comprehensive metabolic 2000 panel - Serum or Plasma COMPREHENSIVE METABOLIC PANEL Lab Routine Stage 3b chronic kidney disease (HCC) 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) Expected: 2024 (Approximate), Expires: 11/22/2025 [facility] Comment on above: Expected: 2024 (Approximate), Expi res: 11/22/2025 Start: 2024 End: 03-07-2025 Erythropoietin (EPO) [Units/volume] in Serum or Plasma ERYTHROPOIETIN/EPO Lab Routine Stage 3b chronic kidney disease (HCC) 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) Expected: 2024 (Approximate), Expires: 03/07/2025 [facility] Comment on above: Expected: 2024 (Approximate), Expi res: 03/07/2025 Start: 2024 End: 11-22-2025 Ferritin [Mass/volume] in Serum or Plasma FERRITIN Lab Routine Stage 3b chronic kidney disease (HCC) 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) Expected: 2024 (Approximate), Expires: 11/22/2025 [facility] Comment on above: Expected: 2024 (Approximate), Expi res: 11/22/2025 Start: 2024 End: 11-22-2025 Folate [Mass/volume] in Serum or Plasma FOLATE, SERUM Lab Routine Stage 3b chronic kidney disease (HCC) 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) Expected: 2024 (Approximate), Expires: 11/22/2025 [facility] Comment on above: Expected: 2024 (Approximate), Expi res: 11/22/2025 Start: 2024 End: 11-22-2025 Iron and Iron binding capacity panel - Serum or Plasma IRON AND TIBC Lab Routine Stage 3b chronic kidney disease (HCC) 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) Expected: 2024 (Approximate), Expires: 11/22/2025 [facility] Comment on above: Expected: 2024 (Approximate), Expi res: 11/22/2025 Start: 2024 End: 03-07-2025 RETICULOCYTE COUNT RETICULOCYTE COUNT Lab Routine Stage 3b chronic kidney disease (HCC) 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) Expected: 2024 (Approximate), Expires: 03/07/2025 [facility] Comment on above: Expected: 2024 (Approximate), Expi res: 03/07/2025 Start: 2024 End: 2024 ambulatory 2024 1:45 PM EDT [facility] Hematology/Oncology [address] [place] [address] Lab & [facility] Hematology/Oncology Comment on above: Lab & [facility] Start: 2024 End: 2024 Patient encounter procedure 2024 1:30 PM EDT Office Visit [facility] [address] [place] [address] [place] [address] Lab & Aranesp [facility] Comment on above: Lab & Aranesp Start: 12-02-2024 End: 11-29-2025 CBC panel - Blood by Automated count CBC Lab Routine 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 Thrombocytopenia Expected: 12/02/2024 (Approximate), Expires: 11/29/2025 [facility] Work Phone: Comment on above: Expected: 12/02/2024 (Approximate), Expi res: 11/29/2025 Start: 12-02-2024 End: 11-29-2025 Comprehensive metabolic 2000 panel - Serum or Plasma Comprehensive Metabolic Panel Lab Routine 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 Expected: 12/02/2024 (Approximate), Expires: 11/29/2025 [facility] Work Phone: Comment on above: Expected: 12/02/2024 (Approximate), Expi res: 11/29/2025 Start: 11-26-2024 End: 11-26-2025 aPTT in Platelet poor plasma by Coagulation assay aPTT Lab Routine Thrombocytopenia Expected: 11/26/2024 (Approximate), Expires: 11/26/2025 [facility] Work Phone: Comment on above: Expected: 11/26/2024 (Approximate), Expi res: 11/26/2025 Start: 11-26-2024 End: 05-29-2025 CT Chest WO contrast CT chest wo IV contrast Imaging Routine Multiple lung nodules on CT Expected: 11/26/2024, Expires: 05/29/2025 [facility] Work Phone: Comment on above: Expected: 11/26/2024, Expires: Start: 11-26-2024 End: 11-26-2025 Prothrombin time (PT) Protime-INR Lab Routine Thrombocytopenia Expected: 11/26/2024 (Approximate), Expires: 11/26/2025 [facility] Service Area Work Phone: Comment on above: Expected: 11/26/2024 (Approximate), Expi res: 11/26/2025 Start: 11-22-2024 End: 11-22-2024 Follow-up encounter 11/22/2024 2:00 PM EDT Visit (SP) Office Hematology/Oncology [address] [place] [address] [place] [address] Rinku Ramsey MD [address] [place] [address] [place] [address] 6 week follow up and labs abd B 12 inj Hematology/Oncology Comment on above: 6 week follow up and labs abd B 12 inj Start: 11-22-2024 End: 11-22-2024 Patient encounter procedure 11/22/2024 1:45 PM EDT Office Visit [facility] [address] [place] [address] 6 week follow up and labs abd B 12 inj [facility] Comment on above: 6 week follow up and labs abd B 12 inj Start: 11-21-2024 End: 11-21-2024 Patient encounter procedure 11/21/2024 10:30 AM EDT Office Visit [facility] [address] [place] [id number] Stephanie Dumont, DIFFUSION FURNACE OPERATOR [address] [place] [phone] [facility] Start: 11-14-2024 COVID-19 Vaccine ( season) COVID-19 Vaccine ( season) [facility] Start: 11-14-2024 Covid-19 Vaccine (7 - Moderna risk ) Covid-19 Vaccine (7 - Moderna risk ) [facility] Start: 11-12-2024 End: 11-12-2024 Patient encounter procedure 11/12/2024 11:00 AM EDT Office Visit [facility] [address] [place] [address] Stephanie Dumont, JORDI [address] [place] [phone] [facility] Start: 10-28-2024 DIABETES SCREEN DIABETES SCREEN [facility] Start: 10-11-2024 End: 10-11-2024 Nursing evaluation of patient and report 10/11/2024 11:00 AM EDT Nurse Visit Hematology/Oncology [address] [place] [address] Debora Gaona Nurse Clarence [address] [place] [address] 6 week follow up labs B12 inj(seeing JR too) Hematology/Oncology Comment on above: 6 week follow up labs B12 inj(seeing JR too) Start: 10-11-2024 End: 10-11-2024 Follow-up encounter 10/11/2024 10:30 AM EDT Visit (SP) Office Hematology/Oncology [address] [place] [address] Li Frank APRN.PATIENT CARE TECHNICIAN [address] [place] [address] 6 week follow up and labs abd B 12 inj Hematology/Oncology Comment on above: 6 week follow up and labs abd B 12 inj Start: 10-11-2024 End: 10-11-2024 Patient encounter procedure 10/11/2024 10:15 AM EDT Office Visit [facility] [address] [place] [address] 6 week follow up and labs abd B 12 inj [facility] Comment on above: 6 week follow up and labs abd B 12 inj Start: 09-25-2024 End: 09-25-2024 Patient encounter procedure 09/25/2024 10:20 AM EDT Office Visit [facility] [address] [email or web address] [address] [place] [id number] Mar Mayo MD [address] [place] [address] [facility] Start: 09-16-2024 DIABETES SCREEN DIABETES SCREEN [facility] Start: 08-22-2024 End: 08-22-2024 Nursing evaluation of patient and report 08/22/2024 11:00 AM EST Nurse Visit Hematology/Oncology [address] [place] [address] Debora Gaona Nurse Clarence [address] [place] [address] 6 week follow up and labs abd B 12 inj-sees JR-date needs changed orders signed Hematology/Oncology Comment on above: 6 week follow up and labs abd B 12 inj-s ees JR-date needs changed orders signed Start: 08-22-2024 End: 08-22-2024 Follow-up encounter 08/22/2024 10:30 AM EST Visit (SP) Office Hematology/Oncology [address] [place] [address] Li Frank APRN.PATIENT CARE TECHNICIAN [address] [place] [address] 6 week follow up and labs abd B 12 inj Hematology/Oncology Comment on above: 6 week follow up and labs abd B 12 inj Start: 08-22-2024 End: 08-22-2024 Patient encounter procedure 08/22/2024 10:15 AM EST Office Visit [facility] [address] [place] [address] 6 week follow up and labs abd B 12 inj [facility] Comment on above: 6 week follow up and labs abd B 12 inj Start: 08-15-2024 End: 08-15-2024 Patient encounter procedure [facility] Comment on above: Systemic lupus erythematosus, unspecifie d (CMS/HCC) (Primary Dx); Qualitative platelet defects (CMS/HCC); Chronic kidney disease, stage 3a (HCC) (CMS/HCC); Immune thrombocytopenic purpura (CMS/HCC); Secondary pulmonary arterial hypertension (CMS/HCC); Coronary artery disease involving stockbridge coronary artery 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 (CMS/HCC); Essential hypertension (CMS/HCC); PAH (pulmonary artery hypertension) (CMS/HCC); Obesity (BMI 30-39.9); Pre-diabetes; Tobacco dependence Start: 07-12-2024 Covid-19 Vaccine ( season) Covid-19 Vaccine ( season) [facility] Start: 07-11-2024 End: 07-11-2024 Nursing evaluation of patient and report 07/11/2024 11:30 AM EST Nurse Visit Hematology/Oncology [address] [place] [address] Debora Gaona Nurse Clarence [address] [place] [address] 6 week follow up and labs abd B 12 inj (seeing LOULOU too) Hematology/Oncology Comment on above: 6 week follow up and labs abd B 12 inj ( seeing LOULOU too) Start: 07-11-2024 End: 07-11-2024 Follow-up encounter 07/11/2024 11:00 AM EST Visit (SP) Office Hematology/Oncology [address] [place] [address] Li Frank APRN.PATIENT CARE TECHNICIAN [address] [place] [address] 6 week follow up and labs abd B 12 inj Hematology/Oncology Comment on above: 6 week follow up and labs abd B 12 inj Start: 07-11-2024 End: 07-11-2024 Patient encounter procedure 07/11/2024 10:45 AM EST Office Visit [facility] [address] [place] [address] 6 week follow up and labs abd B 12 inj [facility] Comment on above: 6 week follow up and labs abd B 12 inj Start: 07-10-2024 Advance Directive Discussion Advance Directive Discussion [facility] Start: 07-10-2024 Medicare Advantage Annual Wellness Visit Medicare Advantage Annual Wellness Visit [facility] Start: 05-30-2024 End: 05-30-2024 Nursing evaluation of patient and report 05/30/2024 11:00 AM EST Nurse Visit Hematology/Oncology [address] [place] [address] Debora Gaona Nurse Clarence [address] [place] [address] 6 week follow up and labs abd B 12 inj (seeing LOULOU too) Hematology/Oncology Comment on above: 6 week follow up and labs abd B 12 inj ( seeing LOULOU too) Start: 05-30-2024 End: 05-30-2024 Follow-up encounter 05/30/2024 10:45 AM EST Visit (SP) Office Hematology/Oncology [address] [facility] [place] [address] Rinku Ramsey MD [address] [place] [address] 6 week follow up and labs abd B 12 inj Hematology/Oncology Comment on above: 6 week follow up and labs abd B 12 inj Start: 05-30-2024 End: 05-30-2024 Patient encounter procedure 05/30/2024 10:30 AM EST Office Visit [facility] [address] [facility] [address] 6 week follow up and labs abd B 12 inj [facility] Comment on above: 6 week follow up and labs abd B 12 inj Start: 05-28-2024 End: 05-28-2025 CT Chest WO contrast CT chest wo IV contrast Imaging Routine Multiple lung nodules on CT Expected: 05/28/2024, Expires: 05/28/2025 [facility] Work Phone: Comment on above: Expected: 05/28/2024, Expires: Start: 05-19-2024 Screening for malignant neoplasm of breast Mammogram [facility] Start: 05-15-2024 End: 05-15-2024 Patient encounter procedure 05/15/2024 2:20 PM EST Office Visit [facility] [address] [facility] [address] [place] [id number] Mar Mayo MD [address] [facility] [address] [place], [place] [id number] [facility] Start: 05-15-2024 End: 05-15-2025 Creatinine [Mass/volume] in Serum or Plasma Creatinine Lab Routine Multiple lung nodules on CT Expected: 05/15/2024 (Approximate), Expires: 05/15/2025 [facility] Work Phone: Comment on above: Expected: 05/15/2024 (Approximate), Expi res: 05/15/2025 Start: 05-14-2024 End: 05-14-2025 DXA Skeletal system Views for bone density DEXA bone density Imaging Routine Age-related osteoporosis without current pathological fracture (CMS/HCC) Expected: 05/14/2024 (Approximate), Expires: 05/14/2025 [facility] Work Phone: Comment on above: Expected: 05/14/2024 (Approximate), Expi res: 05/14/2025 Start: 05-14-2024 End: 05-14-2024 Patient encounter procedure 05/14/2024 10:30 AM EST Office Visit [facility] [address] [place] [address] Stephanie Dumont, DIFFUSION FURNACE OPERATOR [address] [place] [address] [facility] Start: 05-13-2024 End: 05-13-2024 Patient encounter procedure 05/13/2024 10:45 AM EST Office Visit [facility] [address] [place] [address] Jr. Herson Avalos, DO [address] [facility] [address] [place] [address] [facility] Start: 05-09-2024 Influenza vaccination Influenza Vaccine (#1) [facility] Comment on above: Postponed from 03/10/2024 (Patient Does Not Have Time) Start: 05-08-2024 Medicare Annual Wellness (AWV) Medicare Annual Wellness (AWV) [facility] Start: 05-07-2024 End: 05-07-2025 Creatinine [Mass/volume] in Serum or Plasma Creatinine Lab Routine Multiple lung nodules on CT Expected: 05/07/2024 (Approximate), Expires: 05/07/2025 [facility] Comment on above: Expected: 05/07/2024 (Approximate), Expi res: 05/07/2025 Start: 05-07-2024 End: 05-07-2025 CT Chest W contrast IV CT chest w IV contrast Imaging Routine Multiple lung nodules on CT Expected: 05/07/2024 (Approximate), Expires: 05/07/2025 [facility] Work Phone: Comment on above: Expected: 05/07/2024 (Approximate), Expi res: 05/07/2025 Start: 04-29-2024 End: 04-29-2024 Patient encounter procedure 04/29/2024 10:30 AM EDT Office Visit [facility] [address] [place] [address] Jr. Herson Avalos, DO [address] [facility] [address] [place] [address] [facility] Start: 04-18-2024 End: 04-18-2024 Nursing evaluation of patient and report Hematology/Oncology Comment on above: 6 week follow up and labs abd B 12 inj 6 week follow up and labs abd B 12 inj (seeing LOULOU too) Start: 04-18-2024 End: 04-18-2024 Follow-up encounter 04/18/2024 11:15 AM EDT Visit (SP) Office Hematology/Oncology [address] [facility] [place] [address] Rinku Ramsey MD [address] [facility] [place] [address] 6 week follow up and labs abd B 12 inj Hematology/Oncology Comment on above: 6 week follow up and labs abd B 12 inj Start: 04-18-2024 End: 04-18-2024 Patient encounter procedure 04/18/2024 11:00 AM EDT Office Visit [facility] [address] [facility] [place] [address] 6 week follow up and labs abd B 12 inj [facility] Comment on above: 6 week follow up and labs abd B 12 inj Start: 04-16-2024 End: 03-05-2025 CBC W Auto Differential panel - Blood COMPLETE BLOOD COUNT AND DIFFERENTIAL Lab Routine 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 deficiency Chronic ITP (idiopathic thrombocytopenia) (HCC) Expected: 04/16/2024 (Approximate), Expires: 03/05/2025 [facility] Comment on above: Expected: 04/16/2024 (Approximate), Expi res: 03/05/2025 Start: 04-16-2024 End: 03-05-2025 Cobalamin (Vitamin B12) [Mass/volume] in Serum or Plasma VITAMIN B12 Lab Routine 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 deficiency Expected: 04/16/2024 (Approximate), Expires: 03/05/2025 [facility] Comment on above: Expected: 04/16/2024 (Approximate), Expi res: 03/05/2025 Start: 04-16-2024 End: 03-05-2025 Comprehensive metabolic 2000 panel - Serum or Plasma COMPREHENSIVE METABOLIC PANEL Lab Routine 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 deficiency Expected: 04/16/2024 (Approximate), Expires: 03/05/2025 [facility] Comment on above: Expected: 04/16/2024 (Approximate), Expi res: 03/05/2025 Start: 04-16-2024 End: 07-16-2024 Erythropoietin (EPO) [Units/volume] in Serum or Plasma ERYTHROPOIETIN/EPO Lab Routine 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 deficiency Expected: 04/16/2024 (Approximate), Expires: 07/16/2024 [facility] Work Phone: Comment on above: Expected: 04/16/2024 (Approximate), Expi res: 07/16/2024 Start: 04-16-2024 End: 03-05-2025 Ferritin [Mass/volume] in Serum or Plasma FERRITIN Lab Routine 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 deficiency Expected: 04/16/2024 (Approximate), Expires: 03/05/2025 [facility] Comment on above: Expected: 04/16/2024 (Approximate), Expi res: 03/05/2025 Start: 04-16-2024 End: 03-05-2025 Folate [Mass/volume] in Serum or Plasma FOLATE, SERUM Lab Routine 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 deficiency Expected: 04/16/2024 (Approximate), Expires: 03/05/2025 [facility] Comment on above: Expected: 04/16/2024 (Approximate), Expi res: 03/05/2025 Start: 04-16-2024 End: 03-05-2025 Iron and Iron binding capacity panel - Serum or Plasma IRON AND TIBC Lab Routine 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 deficiency Expected: 04/16/2024 (Approximate), Expires: 03/05/2025 [facility] Comment on above: Expected: 04/16/2024 (Approximate), Expi res: 03/05/2025 Start: 04-16-2024 End: 07-16-2024 RETICULOCYTE COUNT RETICULOCYTE COUNT Lab Routine 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 deficiency Expected: 04/16/2024 (Approximate), Expires: 07/16/2024 [facility] Comment on above: Expected: 04/16/2024 (Approximate), Expi res: 07/16/2024 Start: 04-09-2024 End: 04-09-2025 C reactive protein [Mass/volume] in Serum or Plasma C-reactive protein Lab Routine Left leg pain Expected: 04/09/2024 (Approximate), Expires: 04/09/2025 [facility] Comment on above: Expected: 04/09/2024 (Approximate), Expi res: 04/09/2025 Start: 04-09-2024 End: 04-09-2025 Erythrocyte sedimentation rate Sedimentation rate, automated Lab Routine Left leg pain Expected: 04/09/2024 (Approximate), Expires: 04/09/2025 [facility] Comment on above: Expected: 04/09/2024 (Approximate), Expi res: 04/09/2025 Start: 04-09-2024 End: 04-09-2025 NM Whole body Bone 3 Phase Views NM bone 3 phase Imaging Routine Left leg pain Expected: 04/09/2024 (Approximate), Expires: 04/09/2025 [facility] Comment on above: Expected: 04/09/2024 (Approximate), Expi res: 04/09/2025 Start: 04-09-2024 End: 04-09-2024 Patient encounter procedure 04/09/2024 10:15 AM EDT Office Visit [facility] [address] [place] [address] Blaise Alex, PA [address] [address] [facility] Start: 04-05-2024 End: 04-05-2025 Thyrotropin [Units/volume] in Serum or Plasma TSH Lab Routine Disease of thyroid gland (CMS/HCC) Expected: 04/05/2024 (Approximate), Expires: 04/05/2025 [facility] Work Phone: Comment on above: Expected: 04/05/2024 (Approximate), Expi res: 04/05/2025 Start: 04-05-2024 End: 04-05-2025 Thyroxine (T4) free [Mass/volume] in Serum or Plasma T4, free Lab Routine Disease of thyroid gland (CMS/HCC) Expected: 04/05/2024 (Approximate), Expires: 04/05/2025 [facility] Comment on above: Expected: 04/05/2024 (Approximate), Expi res: 04/05/2025 Start: 04-05-2024 End: 04-05-2025 Triiodothyronine (T3) Free [Mass/volume] in Serum or Plasma T3, free Lab Routine Disease of thyroid gland (CMS/HCC) Expected: 04/05/2024 (Approximate), Expires: 04/05/2025 [facility] Comment on above: Expected: 04/05/2024 (Approximate), Expi res: 04/05/2025 Start: 04-04-2024 End: 04-04-2025 Hemoglobin A1c/Hemoglobin.total in Blood Hemoglobin A1c Lab Routine Elevated glucose level Expected: 04/04/2024 (Approximate), Expires: 04/04/2025 [facility] Work Phone: Comment on above: Expected: 04/04/2024 (Approximate), Expi res: 04/04/2025 Start: 04-04-2024 End: 06-04-2025 MG Breast - bilateral Screening Bilateral screening mammogram Imaging Routine Encounter for screening mammogram for malignant neoplasm of breast Expected: 04/04/2024 (Approximate), Expires: 06/04/2025 [facility] Comment on above: Expected: 04/04/2024 (Approximate), Expi res: 06/04/2025 Start: 04-04-2024 End: 04-04-2025 Microalbumin/Creatinine panel in random Urine Microalbumin / creatinine, urine ratio Lab Routine Essential hypertension (CMS/HCC) Expected: 04/04/2024 (Approximate), Expires: 04/04/2025 [facility] Comment on above: Expected: 04/04/2024 (Approximate), Expi res: 04/04/2025 Start: 04-04-2024 End: 04-04-2026 NM Heart Perfusion W adenosine and W radionuclide IV STRESS NUCLEAR MEDICINE [facility] Cardiac Nuclear Medicine Routine Essential hypertension (CMS/HCC) Coronary artery disease involving stockbridge coronary artery 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 ([facility]) Other chest pain Expected: 04/04/2024 (Approximate), Expires: 04/04/2026 [facility] Comment on above: Expected: 04/04/2024 (Approximate), Expi res: 04/04/2026 Start: 04-04-2024 End: 04-04-2025 Thyrotropin [Units/volume] in Serum or Plasma TSH Lab Routine Disease of thyroid gland ([facility]) Expected: 04/04/2024 (Approximate), Expires: 04/04/2025 [facility] Comment on above: Expected: 04/04/2024 (Approximate), Expi res: 04/04/2025 Start: 04-04-2024 End: 04-04-2025 Thyroxine (T4) free [Mass/volume] in Serum or Plasma T4, free Lab Routine Disease of thyroid gland ([facility]) Expected: 04/04/2024 (Approximate), Expires: 04/04/2025 [facility] Comment on above: Expected: 04/04/2024 (Approximate), Expi res: 04/04/2025 Start: 04-04-2024 End: 04-04-2025 Urinalysis complete panel - Urine Urinalysis with reflex microscopic (clean catch) Lab Routine Essential hypertension ([facility]) Expected: 04/04/2024 (Approximate), Expires: 04/04/2025 [facility] Comment on above: Expected: 04/04/2024 (Approximate), Expi res: 04/04/2025 Start: 04-04-2024 End: 04-04-2024 Patient encounter procedure 04/04/2024 9:40 AM EDT Office Visit [facility] [address] [place] [address] Stephanie Dumont NP [address] [place] [address] [facility] Start: 03-15-2024 End: 02-01-2025 CBC W Auto Differential panel - Blood COMPLETE BLOOD COUNT AND DIFFERENTIAL Lab Routine Chronic ITP (idiopathic thrombocytopenia) (HCC) Essential hypertension Obstructive sleep apnea syndrome Stage 3b chronic kidney disease (HCC) Expected: 03/15/2024 (Approximate), Expires: 02/01/2025 [facility] Comment on above: Expected: 03/15/2024 (Approximate), Expi res: 02/01/2025 Start: 03-15-2024 End: 02-01-2025 Comprehensive metabolic 2000 panel - Serum or Plasma COMPREHENSIVE METABOLIC PANEL Lab Routine Chronic ITP (idiopathic thrombocytopenia) (HCC) Essential hypertension Obstructive sleep apnea syndrome Stage 3b chronic kidney disease (HCC) Expected: 03/15/2024 (Approximate), Expires: 02/01/2025 [facility] Comment on above: Expected: 03/15/2024 (Approximate), Expi res: 02/01/2025 Start: 03-15-2024 End: 02-01-2025 Lactate dehydrogenase [Enzymatic activity/volume] in Serum or Plasma LACTATE DEHYDROGENASE Lab Routine Chronic ITP (idiopathic thrombocytopenia) (HCC) Essential hypertension Obstructive sleep apnea syndrome Stage 3b chronic kidney disease (HCC) Expected: 03/15/2024 (Approximate), Expires: 02/01/2025 [facility] Work Phone: Comment on above: Expected: 03/15/2024 (Approximate), Expi res: 02/01/2025 Start: 03-15-2024 End: 03-15-2024 Follow-up encounter 03/15/2024 1:15 PM EDT Visit (SP) Office Hematology/Oncology [address] [place] [address] Rinku Ramsey MD [address] [place] [address] [place] [address] 6 week follow up and labs Hematology/Oncology Comment on above: 6 week follow up and labs Start: 03-15-2024 End: 03-15-2024 Patient encounter procedure 03/15/2024 1:00 PM EDT Office Visit [facility] [address] [facility] [place] [address] 6 week follow up and labs [facility] Comment on above: 6 week follow up and labs Start: 03-10-2024 Covid-19 Vaccine (6 - 2024-25 season) Covid-19 Vaccine ( season) [facility] Start: 03-10-2024 Influenza vaccination Influenza Vacc[facility] Start: 03-04-2024 End: 03-04-2024 Patient encounter procedure [facility] Comment on above: Arrived Start: 02-26-2024 End: 02-25-2026 Echocardiogram 2D complete Echocardiogram 2D complete Echocardiography Routine Calcification of aortic valve Coronary artery disease involving stockbridge coronary artery 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 (CMS/HCC) Expected: 02/26/2024 (Approximate), Expires: 02/25/2026 [facility] Comment on above: Expected: 02/26/2024 (Approximate), Expi res: 02/25/2026 Start: 02-26-2024 End: 02-25-2025 US Thyroid gland US thyroid Imaging Routine Thyroid nodule (CMS/HCC) Expected: 02/26/2024 (Approximate), Expires: 02/25/2025 [facility] Work Phone: Comment on above: Expected: 02/26/2024 (Approximate), Expi res: 02/25/2025 Start: 02-06-2024 End: 02-06-2024 Patient encounter procedure 02/06/2024 2:15 PM EDT Office Visit [facility] [address] [place] [address] [place] [address] [place] [address] [facility] Start: 02-02-2024 End: 02-02-2024 Follow-up encounter 02/02/2024 1:30 PM EDT Visit (SP) Office Hematology/Oncology [address] [facility] [address] Rinku Ramsey MD [address] [place] [address] 6 week follow up and labs Hematology/Oncology Comment on above: 6 week follow up and labs Start: 02-02-2024 End: 02-02-2024 Patient encounter procedure [facility] Comment on above: 11/28-Lvm to schedule appts for outsid e lab orders & EKG from Dr Royal-hayden scanned & entered 6 week follow up and labs Start: 01-05-2024 End: 01-05-2024 Follow-up encounter 01/05/2024 11:45 AM EDT Visit (SP) Office Hematology/Oncology [address] [place] [address] Rinku Ramsey MD [address] [place] [address] 6 week follow up and labs Hematology/Oncology Comment on above: 6 week follow up and labs Start: 01-05-2024 End: 01-05-2024 Patient encounter procedure [facility] Comment on above: 6 week follow up and labs 11/28-Lvm to sched ule appts for outside lab orders & EKG from Dr Royal-hayden scanned & entered Start: 01-02-2024 End: 01-02-2024 Patient encounter procedure 01/02/2024 1:15 PM EDT Office Visit [facility] [address] [place] [address] [place] [address] [place] [address] [facility] Start: 12-18-2023 End: 12-18-2023 Tmpp mastoidect ntc/rcnsted canal wall ocr Tympanomastoidectomy Cholesteatoma of left ear 12/18/2023 7:45 AM EDT [facility] OR Start: 11-14-2023 End: 11-13-2024 Request for Pre-Admission Testing Visit Request for Pre-Admission Testing Visit Procedures Routine Cholesteatoma of left ear Expected: 11/14/2023 (Approximate), Expires: 11/13/2024 [facility] Service Area Work Phone: Comment on above: Expected: 11/14/2023 (Approximate), Expi res: 11/13/2024 Start: 10-13-2023 End: 01-12-2024 CBC W Auto Differential panel - Blood CBC + DIFF Lab Routine Chronic ITP (idiopathic thrombocytopenia) (HCC) Expected: 10/13/2023, Expires: 01/12/2024 [facility] Work Phone: Comment on above: Expected: 10/13/2023, Expires: Start: 10-13-2023 End: 01-12-2024 Comprehensive metabolic 2000 panel - Serum or Plasma COMP METABOLIC PANEL Lab Routine Chronic ITP (idiopathic thrombocytopenia) (HCC) Expected: 10/13/2023, Expires: 01/12/2024 [facility] Work Phone: Comment on above: Expected: 10/13/2023, Expires: Start: 09-24-2023 COVID-19 Vaccine () COVID-19 Vaccine () [facility] Start: 08-23-2023 End: 08-23-2023 Patient encounter procedure 08/23/2023 10:00 AM EST Office Visit [facility] [address] [facility] [address] [place] [id number] Mar Maoy MD [address] [facility] [address] [place] [address] [facility] Start: 07-25-2023 Colonoscopy COLONOSCOPY [facility] Start: 07-25-2023 COLORECTAL CANCER SCREENING COLORECTAL CANCER SCREENING [facility] Start: 07-25-2023 Screening for malignant neoplasm of colon [facility] Start: 07-21-2023 Covid-19 Vaccine () Covid-19 Vaccine () [facility] Start: 07-17-2023 End: 10-16-2023 CBC W Auto Differential panel - Blood CBC + DIFF Lab Routine Chronic ITP (idiopathic thrombocytopenia) (HCC) Essential hypertension Expected: 07/17/2023 (Approximate), Expires: 10/16/2023 [facility] Work Phone: Comment on above: Expected: 07/17/2023 (Approximate), Expi res: 10/16/2023 Start: 07-17-2023 End: 10-16-2023 Comprehensive metabolic 2000 panel - Serum or Plasma COMP METABOLIC PANEL Lab Routine Chronic ITP (idiopathic thrombocytopenia) (HCC) Essential hypertension Expected: 07/17/2023 (Approximate), Expires: 10/16/2023 [facility] Work Phone: Comment on above: Expected: 07/17/2023 (Approximate), Expi res: 10/16/2023 Start: 07-10-2023 Advance Directive Discussion Advance Directive Discussion [facility] Start: 07-10-2023 Behavioral Health Screening Behavioral Health Screening [facility] Start: 07-10-2023 Depression Assessment Depression Assessment [facility] Start: 04-20-2023 End: 04-19-2024 CBC W Auto Differential panel - Blood CBC + DIFF Lab Routine Chronic ITP (idiopathic thrombocytopenia) (HCC) Expected: 04/20/2023 (Approximate), Expires: 04/19/2024 [facility] Work Phone: Comment on above: Expected: 04/20/2023 (Approximate), Expi res: 04/19/2024 Start: 04-20-2023 End: 04-19-2024 Comprehensive metabolic 2000 panel - Serum or Plasma COMP METABOLIC PANEL Lab Routine Chronic ITP (idiopathic thrombocytopenia) (HCC) Expected: 04/20/2023 (Approximate), Expires: 04/19/2024 [facility] Work Phone: Comment on above: Expected: 04/20/2023 (Approximate), Expi res: 04/19/2024 Start: 04-20-2023 End: 04-19-2024 Lactate dehydrogenase [Enzymatic activity/volume] in Serum or Plasma LD LACTATE DEHYDRO Lab Routine Chronic ITP (idiopathic thrombocytopenia) (HCC) Expected: 04/20/2023 (Approximate), Expires: 04/19/2024 [facility] Work Phone: Comment on above: Expected: 04/20/2023 (Approximate), Expi res: 04/19/2024 Start: 03-10-2023 Covid-19 Vaccine ( season) Covid-19 Vaccine () [facility] Start: 03-10-2023 Influenza vaccination [facility] Start: 02-11-2023 Adult depression screening assessment DEPRESSION SCREENING [facility] Start: 08-05-2022 Adult depression screening assessment DEPRESSION SCREENING [facility] Start: 08-04-2022 End: 06-23-2023 CBC W Auto Differential panel - Blood CBC + DIFF Lab Routine Chronic ITP (idiopathic thrombocytopenia) (HCC) Expected: 08/04/2022 (Approximate), Expires: 06/23/2023 [facility] Work Phone: Comment on above: Expected: 08/04/2022 (Approximate), Expi res: 06/23/2023 Start: 08-04-2022 End: 06-23-2023 Comprehensive metabolic 2000 panel - Serum or Plasma COMP METABOLIC PANEL Lab Routine Chronic ITP (idiopathic thrombocytopenia) (HCC) Expected: 08/04/2022 (Approximate), Expires: 06/23/2023 [facility] Work Phone: Comment on above: Expected: 08/04/2022 (Approximate), Expi res: 06/23/2023 Start: 08-04-2022 End: 06-23-2023 Lactate dehydrogenase [Enzymatic activity/volume] in Serum or Plasma LD LACTATE DEHYDRO Lab Routine Chronic ITP (idiopathic thrombocytopenia) (HCC) Expected: 08/04/2022 (Approximate), Expires: 06/23/2023 [facility] Work Phone: Comment on above: Expected: 08/04/2022 (Approximate), Expi res: 06/23/2023 Start: 08-04-2022 End: 10-04-2022 Nuclear Ab [Presence] in Serum by Immunoassay RAAD PANEL BLOOD SCRN Lab Routine Systemic lupus erythematosus, unspecified SLE type, unspecified organ involvement status (HCC) Expected: 08/04/2022 (Approximate), Expires: 10/04/2022 [facility] Work Phone: Comment on above: Expected: 08/04/2022 (Approximate), Expi res: 10/04/2022 Start: 07-10-2022 ADVANCE DIRECTIVE DISCUSSION ADVANCE DIRECTIVE DISCUSSION [facility] Start: 07-10-2022 DEPRESSION ASSESSMENT DEPRESSION ASSESSMENT [facility] Start: 06-08-2022 COVID-19 VACCINE (5 - Booster for Moderna series) COVID-19 VACCINE (5 - Booster for Moderna series) [facility] Start: 04-02-2022 COVID-19 VACCINE (5 - Booster for Moderna series) COVID-19 VACCINE (5 - Booster for Moderna series) [facility] Start: 04-02-2022 COVID-19 VACCINE (5 - Moderna risk series) COVID-19 VACCINE (5 - Moderna risk series) [facility] Start: 03-30-2022 Lipid 1996 panel - Serum or Plasma Lipid Screening [facility] Start: 03-30-2022 Lipid panel Lipid Screening [facility] Start: 03-30-2022 LIPID SCREEN LIPID SCREEN [facility] Start: 03-25-2022 End: 05-25-2022 CBC W Auto Differential panel - Blood CBC + DIFF Lab Routine Chronic ITP (idiopathic thrombocytopenia) (HCC) Essential hypertension Obstructive sleep apnea syndrome Systemic lupus erythematosus, unspecified SLE type, unspecified organ involvement status (HCC) Expected: 03/25/2022, Expires: 05/25/2022 [facility] Work Phone: Comment on above: Expected: 03/25/2022, Expires: 2 Start: 03-25-2022 End: 05-25-2022 Comprehensive metabolic 2000 panel - Serum or Plasma COMP METABOLIC PANEL Lab Routine Chronic ITP (idiopathic thrombocytopenia) (HCC) Essential hypertension Obstructive sleep apnea syndrome Systemic lupus erythematosus, unspecified SLE type, unspecified organ involvement status (HCC) Expected: 03/25/2022, Expires: 05/25/2022 [facility] Work Phone: Comment on above: Expected: 03/25/2022, Expires: 2 Start: 03-10-2022 Influenza vaccination INFLUENZA (#1) [facility] Start: 01-28-2022 End: 03-30-2022 CBC W Auto Differential panel - Blood CBC + DIFF Lab Routine Hypertension, unspecified type Chronic ITP (idiopathic thrombocytopenia) (HCC) Essential hypertension Obstructive sleep apnea syndrome Lung nodules Systemic lupus erythematosus, unspecified SLE type, unspecified organ involvement status (HCC) Expected: 01/28/2022, Expires: 03/30/2022 [facility] Work Phone: Comment on above: Expected: 01/28/2022, Expires: 2 Start: 01-28-2022 End: 03-30-2022 Comprehensive metabolic 2000 panel - Serum or Plasma COMP METABOLIC PANEL Lab Routine Hypertension, unspecified type Chronic ITP (idiopathic thrombocytopenia) (HCC) Essential hypertension Obstructive sleep apnea syndrome Lung nodules Systemic lupus erythematosus, unspecified SLE type, unspecified organ involvement status (HCC) Expected: 01/28/2022, Expires: 03/30/2022 [facility] Work Phone: Comment on above: Expected: 01/28/2022, Expires: Start: 01-28-2022 End: 03-30-2022 Lactate dehydrogenase [Enzymatic activity/volume] in Serum or Plasma LD LACTATE DEHYDRO Lab Routine Hypertension, unspecified type Chronic ITP (idiopathic thrombocytopenia) (HCC) Essential hypertension Obstructive sleep apnea syndrome Lung nodules Systemic lupus erythematosus, unspecified SLE type, unspecified organ involvement status (HCC) Expected: 01/28/2022, Expires: 03/30/2022 [facility] Work Phone: Comment on above: Expected: 01/28/2022, Expires: Start: 12-09-2021 End: 10-28-2022 CBC W Auto Differential panel - Blood CBC + DIFF Lab Routine Chronic ITP (idiopathic thrombocytopenia) (HCC) Expected: 12/09/2021 (Approximate), Expires: 10/28/2022 [facility] Work Phone: Comment on above: Expected: 12/09/2021 (Approximate), Expi res: 10/28/2022 Start: 12-09-2021 End: 10-28-2022 Comprehensive metabolic 2000 panel - Serum or Plasma COMP METABOLIC PANEL Lab Routine Chronic ITP (idiopathic thrombocytopenia) (HCC) Expected: 12/09/2021 (Approximate), Expires: 10/28/2022 [facility] Work Phone: Comment on above: Expected: 12/09/2021 (Approximate), Expi res: 10/28/2022 Start: 12-09-2021 End: 10-28-2022 Lactate dehydrogenase [Enzymatic activity/volume] in Serum or Plasma LD LACTATE DEHYDRO Lab Routine Chronic ITP (idiopathic thrombocytopenia) (HCC) Expected: 12/09/2021 (Approximate), Expires: 10/28/2022 [facility] Work Phone: Comment on above: Expected: 12/09/2021 (Approximate), Expi res: 10/28/2022 Start: 09-14-2021 COVID-19 VACCINE (4 - Booster for Moderna series) COVID-19 VACCINE (4 - Booster for Moderna series) [facility] Start: 07-10-2021 ADVANCE DIRECTIVE DISCUSSION ADVANCE DIRECTIVE DISCUSSION [facility] Start: 07-10-2021 DEPRESSION ASSESSMENT DEPRESSION ASSESSMENT [facility] Start: 02-17-2018 Screening for malignant neoplasm of breast Mammogram Screening [facility] Start: 12-07-2015 BONE DENSITY BONE DENSITY [facility] Start: 12-07-2015 Bone Density Screening Bone Density Screening [facility] Start: 12-07-2015 Screening for osteoporosis Bone Density Screening [facility] Start: 2010 RSV High Risk: (Elderly (60+) or Population) (1 - Risk 60-74 years 1-dose series) RSV High Risk: (Elderly (60+) or Population) (1 - Risk 60-74 years 1-dose series) [facility] Start: 2010 RSV patients and/or patients aged 60+ years (1 - 1-dose 60+ series) RSV patients and/or patients aged 60+ years (1 - 1-dose 60+ series) [facility] Start: 2010 RSV Vaccine (1 - 1-dose 60+ series) RSV Vaccine (1 - 1-dose 60+ series) [facility] Start: 2010 RSV Vaccine (1 - Risk 60-74 years 1-dose series) RSV Vaccine (1 - Risk 60-74 years 1-dose series) [facility] Start: 2000 SHINGRIX VACCINE (1 of 2) SHINGRIX VACCINE (1 of 2) [facility] Start: 2000 Zoster Vaccines (1 of 2) Zoster Vaccines (1 of 2) [facility] Start: 12-07-1995 COLOGUARD (FIT-DNA) COLOGUARD (FIT-DNA) [facility] Start: 12-07-1995 Colonoscopy COLONOSCOPY [facility] Start: 12-07-1995 COLORECTAL CANCER SCREENING COLORECTAL CANCER SCREENING [facility] Start: 12-07-[address] COLONOGRAPHY [facility] Start: 12-07-1995 FECAL OCCULT BLOOD FECAL OCCULT BLOOD [facility] Start: 12-07-1995 Screening for malignant neoplasm of colon [facility] Start: 12-07-1995 SIGMOIDOSCOPY SIGMOIDOSCOPY [facility] Start: 1990 Mammography [facility] Start: 1990 Screening for malignant neoplasm of breast Mammogram [facility] Start: 1972 DTaP/Tdap/Td Vaccines (1 - Tdap) DTaP/Tdap/Td Vaccines (1 - Tdap) [facility] Start: 1969 SHINGRIX VACCINE (1 of 2) SHINGRIX VACCINE (1 of 2) [facility] Start: 1969 Urine microalbumin profile [facility] Start: 1968 ANNUAL PCP TEAM CHRONIC DISEASE VISIT ANNUAL PCP TEAM CHRONIC DISEASE VISIT [facility] Start: 1968 Anxiety Screening Anxiety Screening [facility] Start: 1968 BP CONTROLLED (<130/80) BP CONTROLLED (<130/80) [facility] Start: 1968 Depression Screening Depression Screening [facility] Start: 1968 Hepatitis C screening Hepatitis C Screening [facility] Start: 1961 Screening for malignant neoplasm of cervix Cervical Cancer Screening [facility] Start: 1950 Lipid panel Lipid Panel [facility] Start: 1950 Medicare Annual Wellness (AWV) Medicare Annual Wellness (AWV) [facility] Start: 1950 Medicare Annual Wellness Visit Medicare Annual Wellness Visit (AWV) [facility] Start: 1950 Screening for malignant neoplasm of colon [facility] Start: 1950 Screening for osteoporosis Bone Density Scan [facility] End: 03-31-2023 CBC W Auto Differential panel - Blood CBC + DIFF Lab Routine Chronic ITP (idiopathic thrombocytopenia) (HCC) Obstructive sleep apnea syndrome Every 6 weeks for 9 Occurrences starting 03/31/2022 until 03/31/2023 [facility] Work Phone: Comment on above: Every 6 weeks for 9 Occurrences starting 03/31/2022 until 03/31/2023 End: 04-19-2024 CBC W Auto Differential panel - Blood CBC + DIFF Lab Routine Chronic ITP (idiopathic thrombocytopenia) (HCC) Every 6 weeks for 9 Occurrences starting 04/20/2023 until 04/19/2024 [facility] Work Phone: Comment on above: Every 6 weeks for 9 Occurrences starting 04/20/2023 until 04/19/2024 CBC W Auto Different ial panel - Blood CBC and differential Lab Routine Left leg pain Ordered: 04/09/2024 [facility] Work Phone: Comment on above: Ordered: 04/09/2024 End: 04-18-2025 CBC W Auto Differential panel - Blood COMPLETE BLOOD COUNT AND DIFFERENTIAL Lab Routine Hyperglycemia Chronic ITP (idiopathic thrombocytopenia) (HCC) 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 deficiency Obstructive sleep apnea syndrome Every 6 weeks for 9 Occurrences starting 04/18/2024 until 04/18/2025 [facility] Work Phone: Comment on above: Every 6 weeks for 9 Occurrences starting 04/18/2024 until 04/18/2025 End: 11-22-2025 CBC W Auto Differential panel - Blood COMPLETE BLOOD COUNT AND DIFFERENTIAL Lab Routine Stage 3b chronic kidney disease (HCC) 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) Every other week for 26 Occurrences starting 11/22/2024 until 11/22/2025 [facility] Work Phone: Comment on above: Every other week for 26 Occurrences star ting 11/22/2024 until 11/22/2025 End: 12-18-2023 Choriogonadotropin ( test) [Presence] in Urine [facility] Service [facility] Work Phone: Comment on above: STAT (Lab) for 1 Occurrences starting until 12/18/2023 End: 04-19-2024 Cobalamin (Vitamin B12) [Mass/volume] in Serum or Plasma VITAMIN B12 BLOOD Lab Routine Chronic ITP (idiopathic thrombocytopenia) (HCC) Every 6 weeks for 9 Occurrences starting 04/20/2023 until 04/19/2024 [facility] Work Phone: Comment on above: Every 6 weeks for 9 Occurrences starting 04/20/2023 until 04/19/2024 End: 04-18-2025 Cobalamin (Vitamin B12) [Mass/volume] in Serum or Plasma VITAMIN B12 Lab Routine Hyperglycemia Chronic ITP (idiopathic thrombocytopenia) (HCC) 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 deficiency Obstructive sleep apnea syndrome Every 6 weeks for 9 Occurrences starting 04/18/2024 until 04/18/2025 [facility] Comment on above: Every 6 weeks for 9 Occurrences starting 04/18/2024 until 04/18/2025 End: 03-31-2023 Comprehensive metabolic 2000 panel - Serum or Plasma COMP METABOLIC PANEL Lab Routine Chronic ITP (idiopathic thrombocytopenia) (HCC) Obstructive sleep apnea syndrome Every 6 weeks for 9 Occurrences starting 03/31/2022 until 03/31/2023 [facility] Work Phone: Comment on above: Every 6 weeks for 9 Occurrences starting 03/31/2022 until 03/31/2023 End: 04-19-2024 Comprehensive metabolic 2000 panel - Serum or Plasma COMP METABOLIC PANEL Lab Routine Chronic ITP (idiopathic thrombocytopenia) (HCC) Every 6 weeks for 9 Occurrences starting 04/20/2023 until 04/19/2024 [facility] Work Phone: Comment on above: Every 6 weeks for 9 Occurrences starting 04/20/2023 until 04/19/2024 End: 04-18-2025 Comprehensive metabolic 2000 panel - Serum or Plasma COMPREHENSIVE METABOLIC PANEL Lab Routine Hyperglycemia Chronic ITP (idiopathic thrombocytopenia) (HCC) 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 deficiency Obstructive sleep apnea syndrome Every 6 weeks for 9 Occurrences starting 04/18/2024 until 04/18/2025 [facility] Comment on above: Every 6 weeks for 9 Occurrences starting 04/18/2024 until 04/18/2025 ECG 12 lead ECG 12 lead ECG Routine Cholesteatoma of left 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 Preoperative clearance Ordered: 11/26/2024 [facility] Work Phone: Comment on above: Ordered: 11/26/2024 ECG COMPLETE ECG COMPLETE ECG 12/15/2023 11:36 AM EDT [facility] End: 04-19-2024 Ferritin [Mass/volume] in Serum or Plasma FERRITIN BLD Lab Routine Chronic ITP (idiopathic thrombocytopenia) (HCC) Every 6 weeks for 9 Occurrences starting 04/20/2023 until 04/19/2024 [facility] Work Phone: Comment on above: Every 6 weeks for 9 Occurrences starting 04/20/2023 until 04/19/2024 End: 04-18-2025 Ferritin [Mass/volume] in Serum or Plasma FERRITIN Lab Routine Hyperglycemia Chronic ITP (idiopathic thrombocytopenia) (HCC) 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 deficiency Obstructive sleep apnea syndrome Every 6 weeks for 9 Occurrences starting 04/18/2024 until 04/18/2025 [facility] Comment on above: Every 6 weeks for 9 Occurrences starting 04/18/2024 until 04/18/2025 End: 04-19-2024 Folate [Mass/volume] in Serum or Plasma FOLATE SERUM Lab Routine Chronic ITP (idiopathic thrombocytopenia) (HCC) Every 6 weeks for 9 Occurrences starting 04/20/2023 until 04/19/2024 [facility] Work Phone: Comment on above: Every 6 weeks for 9 Occurrences starting 04/20/2023 until 04/19/2024 End: 04-18-2025 Folate [Mass/volume] in Serum or Plasma FOLATE, SERUM Lab Routine Hyperglycemia Chronic ITP (idiopathic thrombocytopenia) (HCC) 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 deficiency Obstructive sleep apnea syndrome Every 6 weeks for 9 Occurrences starting 04/18/2024 until 04/18/2025 [facility] Comment on above: Every 6 weeks for 9 Occurrences starting 04/18/2024 until 04/18/2025 End: 04-19-2024 Iron and Iron binding capacity panel - Serum or Plasma IRON + TIBC Lab Routine Chronic ITP (idiopathic thrombocytopenia) (HCC) Every 6 weeks for 9 Occurrences starting 04/20/2023 until 04/19/2024 [facility] Work Phone: Comment on above: Every 6 weeks for 9 Occurrences starting 04/20/2023 until 04/19/2024 End: 04-18-2025 Iron and Iron binding capacity panel - Serum or Plasma IRON AND TIBC Lab Routine Hyperglycemia Chronic ITP (idiopathic thrombocytopenia) (HCC) 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 deficiency Obstructive sleep apnea syndrome Every 6 weeks for 9 Occurrences starting 04/18/2024 until 04/18/2025 [facility] Comment on above: Every 6 weeks for 9 Occurrences starting 04/18/2024 until 04/18/2025 Renal function 2000 panel - Serum or Plasma [facility] Surgical pathology study [facility] Work Phone: Comment on above: Release Upon Ordering for 1 Occurrences starting 12/18/2023, 1 completed Tmpp mastoidect ntc/rcnsted canal wall ocr Tympanomastoidectomy Cholesteatoma of left ear Virtual AHU A OR Tympanoplasty w/o mastoidec 1st/revj prosth torp TYMPANOPLASTY, WITH OSSICULOPLASTY 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 Virtual AHU A OR XR Tibia and Fibula - left 2 Views XR tibia fibula 2 views left Imaging Routine Left leg pain 04/09/2024 10:28 AM EDT [facility] Immunizations Immunization Date Immunization Notes Care Provider [facility] 04-02-2024 influenza, high dose seasonal, preservative-free Stephanie Dumont DIFFUSION FURNACE OPERATOR Work Phone: [facility] 04-02-2024 influenza virus vacc ine, unspecified formulation Stephanie Dumont DIFFUSION FURNACE OPERATOR Work Phone: [facility] 03-25-2023 influenza (HD-IIV4) vaccine, age 65+ yr, high dose, quadrivalent, PF (FLUZONE HIGH-DOSE) Rinku Ramsey MD Work Phone: [facility] 03-25-2023 influenza virus vacc ine, unspecified formulation Jayden Connelly APRN.PATIENT CARE TECHNICIAN Work Phone: [facility] 04-20-2022 influenza, high-dose , quadrivalent vaccine (FLUZONE HIGH DOSE QUADRIVALENT) Jayden Connelly APRN.PATIENT CARE TECHNICIAN Work Phone: [facility] 04-20-2022 influenza virus vacc ine, unspecified formulation Rinku Ramsey MD Work Phone: [facility] 03-23-2021 influenza, high-dose , quadrivalent vaccine (FLUZONE HIGH DOSE QUADRIVALENT) Jayden Connelly WELDER FITTER APPRENTICE.PATIENT CARE TECHNICIAN Work Phone: [facility] 10-17-2020 COVID-19 vaccine, fu ll dose (MODERNA) Jayden Connelly WELDER FITTER APPRENTICE.PATIENT CARE TECHNICIAN Work Phone: [facility] 09-19-2020 COVID-19 vaccine, fu ll dose (MODERNA) Jayden Connelly WELDER FITTER APPRENTICE.PATIENT CARE TECHNICIAN Work Phone: [facility] 03-18-2020 influenza, high-dose , quadrivalent vaccine (FLUZONE HIGH DOSE QUADRIVALENT) Jayden Connelly WELDER FITTER APPRENTICE.PATIENT CARE TECHNICIAN Work Phone: [facility] 04-01-2019 influenza, high dose seasonal, preservative-free Jayden Connelly WELDER FITTER APPRENTICE.PATIENT CARE TECHNICIAN Work Phone: [facility] 04-01-2019 pneumococcal polysaccharide vaccine, 23 valent Jayden Connelly WELDER FITTER APPRENTICE.PATIENT CARE TECHNICIAN Work Phone: [facility] 03-23-2018 influenza, high dose seasonal, preservative-free Jayden Connelly WELDER FITTER APPRENTICE.PATIENT CARE TECHNICIAN Work Phone: [facility] 03-23-2018 pneumococcal conjuga te vaccine, 13 valent Jayden Connelly WELDER FITTER APPRENTICE.PATIENT CARE TECHNICIAN Work Phone: [facility] 04-08-2017 influenza, high dose seasonal, preservative-free Jayden Connelly WELDER FITTER APPRENTICE.PATIENT CARE TECHNICIAN Work Phone: [facility] 09-06-2016 pneumococcal conjuga te vaccine, 13 valent Jayden Connelly WELDER FITTER APPRENTICE.PATIENT CARE TECHNICIAN Work Phone: [facility] Payers Date Payer Category Payer Private Health Insurance [facility] DUAL COMPLETE [facility] DUAL COMPLETE [id number] 2023-Present [address] [address] [place] [address] [id number] 2023 Medicare [id number] 2023 Self-pay [id number] 2022 Medicare (Managed Care) 1.2. [id number] 2022 Private Health Insurance [id number] 2021 Medicare UHC AAR MEDICAR E [facility] MEDICARE O [id number] 2021-Present [phone] [address] [address] [place] [address] O [id number] 2015 Medicare MEDICARE MEDICAR E A AND B [id number] 2015-2021 [address] [address] [place] [address] Medicare [id number]. [id number] 2015 Medicare [id number] [id number]. [id number] 1950 Unknown [id number] 2.16.840.1.274612.3.579.2. 9 1950 Unknown [id number] 2.16.840.1.661569.3.579.2. 9 1950 Unknown [id number] 2.16.840.1.073945.3.579.2. 1258 1950 Unknown [id number] 2.16.840.1.978523.3.579.2. 1258 1950 Unknown [id number] 2.16.840.1.283618.3.579.2. 1258 1950 Unknown [id number] 2.16.840.1.960447.3.579.2. 1258 1950 Unknown [id number] 2.16.840.1.208110.3.579.2. 1258 1950 Unknown [id number] 2.16.840.1.785171.3.579.2. 1258 1950 Unknown [id number] 2.16.840.1.106062.3.579.2. 1258 1950 Unknown [id number] 2.16.840.1.854736.3.579.2. 1258 1950 Unknown [id number] 2.16.840.1.191590.3.579.2. 1258 1950 Unknown [id number] 2.16.840.1.435963.3.579.2. 1258 1950 Unknown [id number] 2.16.840.1.683114.3.579.2. 1258 1950 Unknown [id number] 2.16.840.1.021572.3.579.2. 1244 1950 Unknown [id number] 2.16.840.1.755713.3.579.2. 1243 1950 Unknown [id number] 2.16.840.1.580599.3.579.2. 1243 1950 Unknown [id number] 2.16.840.1.556862.3.579.2. 1243 1950 Unknown [id number] 2.16.840.1.201602.3.579.2. 1241 1950 Unknown [id number] 2.16.840.1.714628.3.579.2. 1241 1950 Unknown [id number] 2.16.840.1.971631.3.579.2. 1285 1950 Unknown [id number] 2.16.840.1.701438.3.579.2. 1285 1950 Unknown [id number] 2.16.840.1.416720.3.579.2. 1285 1950 Unknown [id number] 2.16.840.1.494680.3.579.2. 1285 1950 Unknown [id number] 2.16.840.1.798332.3.579.2. 1285 1950 Unknown [id number] 2.16.840.1.700004.3.579.2. 1285 1950 Unknown [id number] 2.16.840.1.660122.3.579.2. 1285 1950 Unknown [id number] 2.16.840.1.557473.3.579.2. 1285 1950 Unknown [id number] 2.16.840.1.577281.3.579.2. 1285 1950 Unknown [id number] 2.16.840.1.179613.3.579.2. 1285 1950 Unknown [id number] 2.16.840.1.084489.3.579.2. 1285 1950 Unknown [id number] 2.16.840.1.838967.3.579.2. 1285 1950 Unknown [id number] 2.16.840.1.847316.3.579.2. 1285 1950 Unknown [id number] 2.16.840.1.864433.3.579.2. 1285 1950 Unknown [id number] 2.840.1.536359.3.579.2. 1286 Medicare [id number] Medicare [id number] [facility] [id number] Unknown [id number] 2840.1.860333.3.579.2. 531 Unknown [id number] 840.1.292950.3.579.2. 531 Social History Date Type Detail Facility Start: 09-16-2021 End: 05-12-2022 Tobacco smoking status NHIS Light tobacco smoker [facility] History of tobacco use Cigarette Smoker [facility] Start: 09-16-2021 End: 02-12-2024 Tobacco use and exposure Smokeless tobacco non-user [facility] Start: 09-16-2021 End: 11-22-2024 Alcohol intake Current non-drinker of alcohol (finding) [facility] Start: 1950 Sex Assigned At Not on file C [facility] Start: 10-18-2021 End: 11-26-2024 Exposure to SARS-CoV-2 (event) Not sure [facility] Start: 03-03-2016 End: 02-12-2024 Tobacco smoking status TXIS Smokes tobacco daily [facility] Start: 01-26-2023 End: 05-14-2024 Sex Assigned At [facility] History of tobacco use Passive smoker [facility] Start: 1950 Sex Assigned At Female F [facility] Start: 01-26-2023 End: 05-14-2024 History of Social function [facility] Adult Depression Screening Assessment 0 [facility] Start: 08-16-2023 End: 12-25-2024 Alcohol intake Lifetime non-drinker (finding) [facility] Start: 09-20-2023 End: 08-21-2024 Tobacco smoking status NHIS Smoker (finding) [facility] Start: 08-21-2024 Sex Female (finding) [facility] NEGATED: Highlighted rowStart: NINF History of tobacco use Passive smoker [facility] Work Phone: Functional Status Date Assessment Result Facility 11-26-2024 Patient Health Quest ionnaire 2 item (PHQ-2) [Reported] [facility] Work Phone: 08-04-2022 Are you deaf, or do you have serious difficulty hearing No 08/04/2022 2:24 PM Jayden Berrios, MIRIAM.PATIENT CARE TECHNICIAN No [facility] Work Phone: 08-04-2022 Are you blind, or do you have serious difficulty seeing, even when wearing glasses No 08/04/2022 2:24 PM Jayden Berrios, WELDER FITTER APPRENTICE.PATIENT CARE TECHNICIAN No [facility] 08-04-2022 Do you have serious difficulty walking or climbing stairs No 08/04/2022 2:24 PM Jayden Berrios, WELDER FITTER APPRENTICE.PATIENT CARE TECHNICIAN No [facility] 08-04-2022 Do you have difficul ty dressing or bathing No 08/04/2022 2:24 PM Jayden Berrios, WELDER FITTER APPRENTICE.PATIENT CARE TECHNICIAN No [facility] 08-04-2022 Because of a physica l, mental, or emotional condition, do you have difficulty doing errands alone such as visiting a physician's office or shopping No 08/04/2022 2:24 PM Jayden Berrios, WELDER FITTER APPRENTICE.PATIENT CARE TECHNICIAN No [facility] Mental Status Date Assessment Result Facility 08-04-2022 Because of a physica l, mental, or emotional condition, do you have serious difficulty concentrating, remembering, or making decisions No 08/04/2022 2:24 PM Jayden Berrios, MIRIAM.PATIENT CARE TECHNICIAN No [facility] Clinical Notes 05-12-2021 to 12-25-2024 Stephanie Dumont NP - 12/25/2024 11:54 AM EDFREDDY DRUMMOND - 12/25/2024 11:00 AM Didier Dumont NP - 12/25/2024 11:00 AM Didier Dumont NP - 12/25/2024 6:07 AM EDTPatient Instructions Note Date & Type Note Facility 12-25-2024 History of Present illness Narrative Associated Problem(s): Diarrhea Ongoing since 1 week, worsening in fatigue and weakness Orthostatics in office today: Lying 112/62, sitting 102/62, and standing 86/54 I do suspect dehydration is an issue, d/t these sxs and BP and age and medical conditions, I am going to have her go to [facility] ER for evaluation.she is agreeable to this and her can drive her there Pt started feeling ill a week ago [...] a wrist cuff. This morning it was 99/67 Pt had labs done on Monday at the [facility] for anemia- she goes back in on the and unsure if she will get another b12 injections She states the rbc were 10 Images from the original note were not included. Andrei Fish is a 74 y.o. female presents with chief complaint of Hypertension HPI: Pt started feeling ill a week ago on Monday. She diarrhea yellow fluid, most days at least 5-6 times daily, today 3 times already, no fever, no others in the home sick. Feels weaker- she struggled walking in and shaky. Pt [...] a wrist cuff. This morning it was 99/67 Pt had labs done on Monday at the [facility] for anemia- she goes back in on [...] disease) States medication was given too fast. Ysjnfxl-Ovwavb-Lquoy Pertussis Rash REVIEW OF SYMPTOMS: Review of [...] Negative for abdominal pain, blood in stool, constipation, nausea and vomiting. Genitourinary: Negative for difficulty urinating, [...] Size: Adult long) Pulse 73 Temp 98.7 F (Temporal) Resp 18 Wt 173 lb 6.4 oz LMP (LMP Unknown) SpO2 97% BMI 30.72 kg/m OB Status Postmenopausal Smoking Status Every Day BSA 1.87 m Physical Exam Vitals and nursing note reviewed. [...] of the risks of continued smoking: stroke, KS, all forms of cancer, lung disease, and [...] free T3, free Coronary artery disease involving stockbridge coronary artery of stockbridge heart Takes b clarke Pre-diabetes No current [...] going to have her go to [facility] ER for evaluation.she is agreeable to this and her can drive her there Chronic kidney disease, stage 3b ([facility]) - Primary Goal control blood pressures Check labs semi annually as well as prn sxs changes Associated Problem(s): Thyroid nodule Biopsy resolved, bethesda-nondiagnostic, rare benign thyroid follicular cells Associated Problem(s): Tobacco dependence The patient has been advised of the risks of continued smoking: stroke, KS, all forms of cancer, lung disease, and [...] counseled on the importance of smoking cessation. Associated Problem(s): Chronic ITP (idiopathic thrombocytopenia) ([facility]) Continue with [facility] for treatment Associated Problem(s): Pre-diabetes No current meds Watch for increase in thirst, urination, or appetite. Inspect feet frequently monitoring for open wounds , and also recommend yearly eye exam. Pt should attempt to remain as physically active as chronic conditions allow, as well as trying to follow a diet low in carbohydrates, and simple sugars. A1c 5.7 12/25/24 6.3 (04/02) Associated Problem(s): Obesity (BMI 30-39.9) Discussed with patient their BMI (actual, verses recommended). We have also discussed lifestyle modifications: attempts to perform physical activity as chronic conditions allow, also to monitor dietary intake: increasing protein/fruits/veggies and lowering carb intake (unless contraindicated). Limit sodas, juices, and sugary drinks. Associated Problem(s): Chronic kidney disease, stage 3b ([facility]) Goal control blood pressures Check labs semi annually as well as prn sxs changes Associated Problem(s): Essential hypertension Please check blood pressure daily and record DASH diet Limit caffeine Take medication as directed Contact office if chest pain, pressure, dizziness, shortness of breath, swelling legs Recommend slow position changes Current meds: hydrochlorothiazide, losartan, metoprolol, aldactone Associated Problem(s): Coronary artery disease involving stockbridge coronary artery of stockbridge heart Takes b clarke Associated Problem(s): Multiple lung nodules on CT Next scan due 12/2025 Associated Problem(s): Obstructive sleep apnea syndrome You have [...] manages your ADALBERTO: documented in this encounter [facility] 12-25-2024 Instructions Stephanie Dumont NP - 12/25/2024 11:00 AM EDT Proceed to ER for evaluation Also will provide an order for you for thyroid labs with next lab draw Fu in 3 weeks documented in this encounter [facility] 11-26-2024 History of Present illness Narrative Images from the original note were not included. History Of Present Illness: Andrei Fish is a 73 y.o. female with a history of left TM perforation s/p left-sided tympanoplasty with OCR in December [address] Augie Tyler at [facility] [place]. 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 Patient's symptoms remain stable since her last visit. Denies otorrhea and otalgia. Continues to use a cotton ball while in the shower. Recall 02/06/24: Andrei Fish is a 73 y.o. female with a history of left TM perforation s/p left-sided tympanoplasty with OCR in December [address] Augie Tyler at [facility] [place]. 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 She presents today for a postoperative visit. She states that she is doing well after surgery. She experiences occasional pain. She denies any ear drainage. Surgical History: She has a past surgical history that includes Appendectomy; Cholecystectomy; Hysterectomy; and Colonoscopy. Allergies: Vancomycin and Diphtheria,pertussis (acellular),tetanus vaccine Medications: Current Outpatient Medications Medication Instructions alendronate (FOSAMAX) 70 mg, Every 7 days ciprofloxacin-dexamethasone (CiproDEX) otic suspension 4 drops, otic (ear), 2 times daily, Start your ear drops on 12/18 and continue until follow up ergocalciferol (Vitamin D-2) 1.25 MG (07263 UT) capsule 1 capsule, Weekly fostamatinib (TAVALISSE) 100 mg, 2 times daily hydroCHLOROthiazide (HYDRODIURIL) 25 mg, Daily losartan (COZAAR) 50 mg spironolactone (ALDACTONE) 25 mg, Daily RT Review of Systems: A comprehensive 10-point review [...] synkinesis or facial tic. Ears Otoscopic examination: Left: Shelf of soft tissue at the middle bony canal superiorly with no collection of debris, there are 2 perforations which are in the anterior and inferior aspects of the drum, middle ear is healthy, no evidence of recurrent cholesteatoma, facial nerve function is 1/6. Right: Cerumen present in the ear canal, drum is intact and healthy in appearance with no evidence of cholesteatoma. Nose: Dorsum symmetric with no visible or palpable deformities. Oral Cavity/Mouth Lips, teeth, and gums: Normal lips, gums, and dentition. Oropharynx: Mucosa moist, no lesions. Neck: Symmetrical, trachea midline. No masses visible. Neurological/Psychiatric Cranial Nerve Examination: II - XII grossly intact. Orientation to person, place, and time: Normal. Mood and affect: Normal. Skin: Normal without rashes or lesions. Pulmonary Respiratory effort: Chest expands symmetrically. Cardiovascular: Good peripheral pulses Peripheral vascular system: No varicosities, carotid pulse normal, no edema. No jugular venous distension. Extremities: Appearance of extremities: Normal. Gait normal. Procedure: Ear Cleaning Procedure: Cerumen Removal Indication: Cerumen Impaction Location: Both Ears Prep: Nothing was placed in the ear canal(s) prior to the procedure. Preformed by: The procedure was performed by the Provider. Visualization Instrument: A Microscope and Speculum were placed in the ear canal(s) to visualize the ear canal debris. Ear cleaning Instruments: Alligator Forceps and Curette were used during the procedure. Outcome: The procedure was successful. Patient Status: The patient tolerated the procedure well. Complications: There were no complications. Patient Instructions: Avoid Using Q-Tips Last Recorded Vitals: Weight 87.5 kg (193 lb). Relevant Results: I personally reviewed the audiogram from 11/26/24 which demonstrated right sided moderate SNHL, left sided severe rising to moderate dropping to severe SNHL, type A tympanograms on the right, type B tympanograms on the left, with word understanding scores of 88% on the right and 72% on the left. Assessment/Plan 73 y.o. female with a history of left TM perforation s/p left-sided tympanoplasty with OCR in December [address] Augie Tyler at [facility] [place]. 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 Patient's symptoms remain stable since her last visit. Physical exam today demonstrated shelf of soft tissue at the middle bony cartilaginous junction superiorly with no collection of debris, there are 2 perforations which are in the anterior and inferior aspects of the drum. Since I did not reconstruct the ossicules at her primary operation and with recurrent perforations a revision tympanoplasty with OCR is recommended. We discussed the risks and benefits of left transcanal tympanoplasty. These risks include damage to the ear bone, damage to the inner ear, hearing loss, dizziness, facial nerve injury, and taste disturbance. The patient opted to undergo this procedure and will be scheduled at their earliest convenience. - Patient will be scheduled for left transcanal tympanoplasty at her earliest convenience Scribe Attestation By signing my name below, I, Emani Kapadia, Scrfox attest that this documentation has been prepared under the direction and in the presence of Susanna Graf MD. I have reviewed the documentation as scribed by Marshal Kapadia and agree with the notes. Susanna Graf MD documented in this encounter [facility] Work Phone: 11-22-2024 Note [facility] 11-22-2024 History of Present illness Narrative Patient Identification confirmed: yes. Injection given and documented on SEP per provider order. Joanne Alvarez MA documented in this encounter [facility] 11-22-2024 Instructions Emani Brizuela - 11/22/2024 2:13 PM EDT B12 shot today and q 6 weeks In 2 weeks, start Aranesp q 2 weeks for anemia Labs q 2 weeks Continue Tavalisse 100mg BID RTC in 6 weeks - coordinate with B12 & Aranesp Labs same day documented in this encounter [facility] 11-22-2024 History of Present illness Narrative Images from the original note were not included. NAME: Andrei Fish [facility] NO[facility] [id number] DATE OF SERVICE: November 22, 2024 ([email or web address]) Some elements in this clinic note that are critical to medical decision making have been carefully reviewed and included from a prior clinic note dated: October 11, 2024 (Hong) Additional Clinicians involved in Andrei Fish's care: [...] B12 shot today and q 6 weeks In 2 weeks, start Aranesp q 2 weeks for anemia Labs q 2 weeks Continue Tavalisse 100mg BID RTC in 6 weeks - coordinate with B12 & Aranesp Labs same day HPI: CASE HISTORY: Reverse Chronological Order 05/29/2024 - CT Chest: Stable appearance of numerous small nodules scattered within the lungs. Consider follow-up CT chest in 6 months to document continued stability and to help establish baseline. 03/29/2023 - US Renal Bilateral: Normal-sized kidneys [...] - Rituxan X 4 Updated Visit, November 22, 2024: Andrei returns today for a follow up. Hemoglobin has decreased to 9.7, platelets stable within normal limits. Will start Aranesp q 2 weeks for anemia, continue Tavalisse 100mg BID for ITP. Worsening anemia is likely caused by progressing CKD. She complains of a chronic cough. Updated Visit, October 11, 2024: Andrei returns today for a follow-up visit. Having intermittent leg cramps bilaterally that has been ongoing. Patient took Flexeril in the past and that was helpful. Platelet count today continues to improve at 202. She is taking her Tavalissee as prescribed. No bleeding or bruising. Denies nausea, vomiting, constipation, diarrhea. Will receive her B12 shot today. Updated Visit, August 30, 2024: Andrei returns today for a follow-up visit. Overall she is doing well but continues to have fatigue. Platelet count today has improved to 173. She takes her Tavalissee as prescribed. Denies any side effects. Patient denies fever, chills, signs of infection. No bleeding or bruising. Denies nausea, vomiting, constipation, diarrhea. Will receive her B12 shot today. Updated Visit, July 11, 2024: Andrei returns for a follow up. She is doing well overall although endorses a cough - will send rx for Cade Das. Her sense of taste is still diminished, she wonders if it is a side effect of her ear surgery in 12/2023. Her appetite is normal. She remains compliant with Tavalisse. Platelet count decreased slightly to 139, anemia is stable. Updated Visit, May 30, 2024: Andrei returns today for a follow up. She was COVID positive a few weeks ago, which caused her to lose her sense of taste - subsequently lost 10lbs. She had a CT chest to monitor pulmonary nodules - stable overall. Leg pain persists - etiology is still unknown. Platelets 157 today - continue Tavalisse 100mg BID. Hemoglobin is stable. Updated Visit, April 18, 2024: Andrei returns for a follow up. Her anemia has improved since February, platelet count is within normal ranges. Will continue her current treatment regimen. She is following with other providers for leg pain, endorses she feels the same as when she previously had an infected wound. Workup so far has been unrevealing. Updated Visit, March 05, 2024: Andrei returns today for a follow up. Platelets are stable, she is more anemic today. Will give B12 injection today. Her eardrum repair was successful. She complains of continued weakness in her legs. 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 She states that [...] 08/29/2022 and then a follow-up with her ecotherapist on 09/07/2022. Overall, she is doing well [...] they are slightly increased. Got back from [place] and saw her sisters and had a [...] had a consultation with nephrology, Dr. Gilson Arriola. Dr. Arriola increased her losartan to 50 mg daily. [...] why she was going to see a ecotherapist for her blood pressure. Patient also has [...] PERFORMANCE STATUS: 0 PHYSICAL EXAMINATION: Vitals: BP 125/81 Pulse 78 Temp (Src) 97.1 (Temporal) Resp 18 Wt 180 lb 5.4 oz (81.8kg) SpO2 97% Body surface area is 1.9 meters squared. Exam limited to gross visualization [...] tablet by mouth three times a day. cyclobenzaprine (FLEXERIL) 5 mg tablet Take 1 tablet by mouth daily at bedtime. losartan (COZAAR) 25 mg tablet TAKE 2 TABLETS BY MOUTH AT BEDTIME benzonatate (TESSALON PERLE) 100 mg capsule Take 1 capsule by mouth every 6 hours as needed for cough. fostamatinib (TAVALISSE) 100 mg tablet Take 1 tablet by mouth two times a day. metoprolol succinate ER (TOPROL XL) 25 mg 24 hr tablet Take 12.5 mg by mouth once daily. hydroCHLOROthiazide 25 mg tablet take 1 tablet by mouth every day ergocalciferol 50,000 unit capsule (VITAMIN D2, DRISDOL) Take 1 capsule by mouth one time a week. alendronate (FOSAMAX) 70 mg tablet PLEASE SEE ATTACHED FOR DETAILED DIRECTIONS spironolactone (ALDACTONE) 25 mg tablet Take 25 mg by mouth once daily. LABORATORY VALUES: WBC (k/uL) Date Value 11/22/2024 5.85 RBC (m/uL) Date Value 11/22/2024 3.03 (L) Hemoglobin (g/dL) Date Value 11/22/2024 9.7 (L) Hematocrit (%) Date Value 11/22/2024 30.9 (L) MCV (fL) Date Value 11/22/2024 102.0 (H) MCH (pg) Date Value 11/22/2024 32.0 MCHC (g/dL) Date Value 11/22/2024 31.4 RDW-CV (%) Date Value 11/22/2024 14.3 Platelet Count (k/uL) Date Value 11/22/2024 168 MPV (fL) Date Value 11/22/2024 8.9 (L) Glucose (mg/dL) Date Value 11/22/2024 113 (H) BUN (mg/dL) Date Value 11/22/2024 40 (H) Creatinine (mg/dL) Date Value 11/22/2024 1.30 (H) Sodium (mmol/L) Date Value 11/22/2024 142 Potassium (mmol/L) Date Value 11/22/2024 5.1 Chloride (mmol/L) Date Value 11/22/2024 111 (H) CO2 (mmol/L) Date Value 11/22/2024 22 Protein, Total (g/dL) Date Value 11/22/2024 7.4 Albumin (g/dL) Date Value 11/22/2024 3.8 (L) Calcium, Total (mg/dL) Date Value 11/22/2024 9.4 Alkaline Phosphatase (U/L) Date Value 11/22/2024 83 Bilirubin, Total (mg/dL) Date Value 11/22/2024 0.4 AST (U/L) Date Value 11/22/2024 20 ALT (U/L) Date Value 11/22/2024 11 Cholesterol, Total (mg/dL) Date Value 03/30/2017 171 Triglyceride (mg/dL) Date Value 03/30/2017 118 DIAGNOSIS: (D69.3) Chronic ITP (idiopathic thrombocytopenia) ([facility]) (primary encounter diagnosis) (N18.32) Stage 3b chronic kidney disease ([facility]) Plan: COMPLETE BLOOD COUNT AND DIFFERENTIAL, COMPREHENSIVE METABOLIC PANEL, IRON AND TIBC, FERRITIN, VITAMIN B12, FOLATE, SERUM, RETICULOCYTE COUNT, ERYTHROPOIETIN/EPO (N18.32, D63.1) 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 chronic kidney disease ([facility]) Plan: COMPLETE BLOOD COUNT AND DIFFERENTIAL, COMPREHENSIVE METABOLIC PANEL, IRON AND TIBC, FERRITIN, VITAMIN B12, FOLATE, SERUM, RETICULOCYTE COUNT, ERYTHROPOIETIN/EPO (D53.1) 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 deficiency (M32.9) Systemic lupus erythematosus, unspecified SLE type, unspecified organ involvement status ([facility]) PAST MEDICAL HISTORY Diagnosis Date Lupus Thrombocytopenia PAST SURGICAL HISTORY Procedure Laterality Date COLONSCOPY [...] which included preparing to see the patient, [id number] patient care, completing clinical documentation, performing a medically appropriate examination, counseling and educating the patient/family/caregiver, ordering medications, tests, or procedures, independently interpreting results (not separately reported), communicating results to the patient/family/caregiver, and care coordination (not separately reported). Rinku Ramsey MD, CPE Hematology and Oncology Services Provided at: [place], [place] Scribe Attestation: This note was scribed by Emani Brizuela on November 22, 2024 under the direction and supervision of Dr. Rinku Ramsey. I attest that all of the information documented is correct to the best of my knowledge. Provider Attestation: I, Rinku Ramsey MD, attest that all information documented by the above scribe is correct, and was supervised by me and under my direction. CC: Dr. Atif Graf documented in this encounter [facility] 11-22-2024 Note [facility] 11-06-2024 Note [facility] 11-06-2024 History of Present illness Narrative SOCIAL WORK FOLLOW UP NOTE: [facility] Date of service:11/06/2024 Andrei Fish is being seen for a follow up social work visit. Today's visit includes: patient TOPICS ADDRESSED: Medicare Prescription Drug Program PLAN: Continue follow up as needed and Referral to community resource Assigned SW listed in Care Team tab: No Retail Pharmacy brought this Patient to SW office and asked for assistance with signing the Patient up for a Medicare Prescription Assistance Plan. SW has to ask James Cummings for help. After an hour of phone calls the Patient was successfully enrolled in a program. SW will remain available and will follow up as appropriate. KI Gar documented in this encounter [facility] 10-11-2024 History of Present illness Narrative Images from the original note were not included. NAME: Andrei Fish [facility] NO[facility] [id number] DATE OF SERVICE: October 11, 2024 (Hong) Some elements in this clinic note that are critical to medical decision making have been carefully reviewed and included from a prior clinic note dated: August 30, 2024 (Hong) Additional Clinicians involved in Andrei Fish's care: [...] day HPI: CASE HISTORY: Reverse Chronological Order 05/29/2024 - CT Chest: Stable appearance of numerous small nodules scattered within the lungs. Consider follow-up CT chest in 6 months to document continued stability and to help establish baseline. 03/29/2023 - US Renal Bilateral: Normal-sized kidneys [...] - Rituxan X 4 Updated Visit, October 11, 2024: Andrei returns today for a follow-up visit. Having intermittent leg cramps bilaterally that has been ongoing. Patient took Flexeril in the past and that was helpful. Platelet count today continues to improve at 202. She is taking her Tavalissee as prescribed. No bleeding or bruising. Denies nausea, vomiting, constipation, diarrhea. Will receive her B12 shot today. Updated Visit, August 30, 2024: Andrei returns today for a follow-up visit. Overall she is doing well but continues to have fatigue. Platelet count today has improved to 173. She takes her Tavalissee as prescribed. Denies any side effects. Patient denies fever, chills, signs of infection. No bleeding or bruising. Denies nausea, vomiting, constipation, diarrhea. Will receive her B12 shot today. Updated Visit, July 11, 2024: Andrei returns for a follow up. She is doing well overall although endorses a cough - will send rx for Tesgalilea Das. Her sense of taste is still diminished, she wonders if it is a side effect of her ear surgery in 12/2023. Her appetite is normal. She remains compliant with Tavalisse. Platelet count decreased slightly to 139, anemia is stable. Updated Visit, May 30, 2024: Andrei returns today for a follow up. She was COVID positive a few weeks ago, which caused her to lose her sense of taste - subsequently lost 10lbs. She had a CT chest to monitor pulmonary nodules - stable overall. Leg pain persists - etiology is still unknown. Platelets 157 today - continue Tavalisse 100mg BID. Hemoglobin is stable. Updated Visit, April 18, 2024: Andrei returns for a follow up. Her anemia has improved since February, platelet count is within normal ranges. Will continue her current treatment regimen. She is following with other providers for leg pain, endorses she feels the same as when she previously had an infected wound. Workup so far has been unrevealing. Updated Visit, March 05, 2024: Andrei returns today for a follow up. Platelets are stable, she is more anemic today. Will give B12 injection today. Her eardrum repair was successful. She complains of continued weakness in her legs. 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 She states that [...] 08/29/2022 and then a follow-up with her ecotherapist on 09/07/2022. Overall, she is doing well [...] they are slightly increased. Got back from [place] and saw her sisters and had a [...] had a consultation with nephrology, Dr. Gilson Arriola. Dr. Arriola increased her losartan to 50 mg daily. [...] why she was going to see a ecotherapist for her blood pressure. Patient also has [...] ECOG PERFORMANCE STATUS: 0 PHYSICAL EXAMINATION: Vitals: There were no vitals taken for this visit. There is no height or weight on file to calculate BSA. Exam limited to gross visualization where appropriate. [...] Vancomycin Unknown Burning sensation Diphtheria,Pertussi* Rash MEDICATIONS: losartan (COZAAR) 25 mg tablet TAKE 2 TABLETS BY MOUTH AT BEDTIME benzonatate (TESSALON PERLE) 100 mg capsule Take 1 capsule by mouth every 6 hours as needed for cough. fostamatinib (TAVALISSE) 100 mg tablet Take 1 tablet by mouth two times a day. metoprolol succinate ER (TOPROL XL) 25 mg 24 hr tablet Take 12.5 mg by mouth once daily. pilocarpine (SALAGEN) 5 mg tablet Take 1 tablet by mouth three times a day. hydroCHLOROthiazide 25 mg tablet take 1 tablet by mouth every day pilocarpine (SALAGEN) 5 mg tablet Take 1 tablet by mouth three times a day. ergocalciferol 50,000 unit capsule (VITAMIN D2, DRISDOL) Take 1 capsule by mouth one time a week. alendronate (FOSAMAX) 70 mg tablet PLEASE SEE ATTACHED FOR DETAILED DIRECTIONS spironolactone (ALDACTONE) 25 mg tablet Take 25 mg by mouth once daily. LABORATORY VALUES: WBC (k/uL) Date Value 08/30/2024 5.59 RBC (m/uL) Date Value 08/30/2024 3.29 (L) Hemoglobin (g/dL) Date Value 08/30/2024 10.4 (L) Hematocrit (%) Date Value 08/30/2024 33.2 (L) MCV (fL) Date Value 08/30/2024 100.9 (H) MCH (pg) Date Value 08/30/2024 31.6 MCHC (g/dL) Date Value 08/30/2024 31.3 RDW-CV (%) Date Value 08/30/2024 13.8 Platelet Count (k/uL) Date Value 08/30/2024 173 MPV (fL) Date Value 08/30/2024 9.3 Glucose (mg/dL) Date Value 08/30/2024 102 (H) BUN (mg/dL) Date Value 08/30/2024 29 (H) Creatinine (mg/dL) Date Value 08/30/2024 1.38 (H) Sodium (mmol/L) Date Value 08/30/2024 139 Potassium (mmol/L) Date Value 08/30/2024 4.9 Chloride (mmol/L) Date Value 08/30/2024 105 CO2 (mmol/L) Date Value 08/30/2024 25 Protein, Total (g/dL) Date Value 08/30/2024 7.5 Albumin (g/dL) Date Value 08/30/2024 3.8 (L) Calcium, Total (mg/dL) Date Value 08/30/2024 9.4 Alkaline Phosphatase (U/L) Date Value 08/30/2024 84 Bilirubin, Total (mg/dL) Date Value 08/30/2024 0.5 AST (U/L) Date Value 08/30/2024 24 ALT (U/L) Date Value 08/30/2024 15 Cholesterol, Total (mg/dL) Date Value 03/30/2017 171 Triglyceride (mg/dL) Date Value 03/30/2017 118 DIAGNOSIS: No diagnosis found. PAST MEDICAL HISTORY Diagnosis Date Lupus Thrombocytopenia (HCC) PAST SURGICAL HISTORY Procedure Laterality Date COLONSCOPY SCREENING HIGH RISK 07/25/2022 HYSTERECTOMY HX Social History Tobacco Use Smoking status: Light Smoker Types: Cigarettes Passive exposure: Past Smokeless tobacco: Never Vaping Use Vaping status: Never Used Substance Use Topics Alcohol use: No Drug use: No No family history on file. Li Frank APRN, DIFFUSION FURNACE OPERATOR-C, [facility] Provided at: [place], [place] CC: Dr. Atif Graf documented in this encounter [facility] 10-11-2024 Note [facility] 08-30-2024 Note [facility] 08-30-2024 History of Present illness Narrative Patient Identification confirmed: yes. Injection given and documented on SEP per provider order. Joanne Alvarez MA documented in this encounter [facility] 08-30-2024 History of Present illness Narrative NAME: Andrei Fish CLINIC NO.: [id number] DATE OF SERVICE: August 30, 2024 (Hong) Some elements in this clinic note that are critical to medical decision making have been carefully reviewed and included from a prior clinic note dated: July 11, 2024 (Hong) Additional Clinicians involved in Andrei Fish's care: [...] day HPI: CASE HISTORY: Reverse Chronological Order 05/29/2024 - CT Chest: Stable appearance of numerous small nodules scattered within the lungs. Consider follow-up CT chest in 6 months to document continued stability and to help establish baseline. 03/29/2023 - US Renal Bilateral: Normal-sized kidneys [...] - Rituxan X 4 Updated Visit, August 30, 2024: Andrei returns today for a follow-up visit. Overall she is doing well but continues to have fatigue. Platelet count today has improved to 173. She takes her Tavalissee as prescribed. Denies any side effects. Patient denies fever, chills, signs of infection. No bleeding or bruising. Denies nausea, vomiting, constipation, diarrhea. Will receive her B12 shot today. Updated Visit, July 11, 2024: Andrei returns for a follow up. She is doing well overall although endorses a cough - will send rx for Cade Das. Her sense of taste is still diminished, she wonders if it is a side effect of her ear surgery in 12/2023. Her appetite is normal. She remains compliant with Tavalisse. Platelet count decreased slightly to 139, anemia is stable. Updated Visit, May 30, 2024: Andrei returns today for a follow up. She was COVID positive a few weeks ago, which caused her to lose her sense of taste - subsequently lost 10lbs. She had a CT chest to monitor pulmonary nodules - stable overall. Leg pain persists - etiology is still unknown. Platelets 157 today - continue Tavalisse 100mg BID. Hemoglobin is stable. Updated Visit, April 18, 2024: Andrei returns for a follow up. Her anemia has improved since February, platelet count is within normal ranges. Will continue her current treatment regimen. She is following with other providers for leg pain, endorses she feels the same as when she previously had an infected wound. Workup so far has been unrevealing. Updated Visit, March 05, 2024: Andrei returns today for a follow up. Platelets are stable, she is more anemic today. Will give B12 injection today. Her eardrum repair was successful. She complains of continued weakness in her legs. 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 She states that [...] 08/29/2022 and then a follow-up with her ecotherapist on 09/07/2022. Overall, she is doing well [...] they are slightly increased. Got back from [place] and saw her sisters and had a [...] had a consultation with nephrology, Dr. Gilson Arriola. Dr. Arriola increased her losartan to 50 mg daily. [...] why she was going to see a ecotherapist for her blood pressure. Patient also has [...] PERFORMANCE STATUS: 0 PHYSICAL EXAMINATION: Vitals: BP 114/76 Pulse 75 Temp (Src) 97.5 (Temporal) Resp 18 Wt 182 lb 5.1 oz (82.7kg) SpO2 98% Body surface area is 1.91 meters squared. Exam limited to gross visualization [...] Vancomycin Unknown Burning sensation Diphtheria,Pertussi* Rash MEDICATIONS: losartan (COZAAR) 25 mg tablet TAKE 2 TABLETS BY MOUTH AT BEDTIME benzonatate (TESSALON PERLE) 100 mg capsule Take 1 capsule by mouth every 6 hours as needed for cough. fostamatinib (TAVALISSE) 100 mg tablet Take 1 tablet by mouth two times a day. metoprolol succinate ER (TOPROL XL) 25 mg 24 hr tablet Take 12.5 mg by mouth once daily. pilocarpine (SALAGEN) 5 mg tablet Take 1 tablet by mouth three times a day. hydroCHLOROthiazide 25 mg tablet take 1 tablet by mouth every day pilocarpine (SALAGEN) 5 mg tablet Take 1 tablet by mouth three times a day. ergocalciferol 50,000 unit capsule (VITAMIN D2, DRISDOL) Take 1 capsule by mouth one time a week. alendronate (FOSAMAX) 70 mg tablet PLEASE SEE ATTACHED FOR DETAILED DIRECTIONS spironolactone (ALDACTONE) 25 mg tablet Take 25 mg by mouth once daily. LABORATORY VALUES: WBC (k/uL) Date Value 08/30/2024 5.59 RBC (m/uL) Date Value 08/30/2024 3.29 (L) Hemoglobin (g/dL) Date Value 08/30/2024 10.4 (L) Hematocrit (%) Date Value 08/30/2024 33.2 (L) MCV (fL) Date Value 08/30/2024 100.9 (H) MCH (pg) Date Value 08/30/2024 31.6 MCHC (g/dL) Date Value 08/30/2024 31.3 RDW-CV (%) Date Value 08/30/2024 13.8 Platelet Count (k/uL) Date Value 08/30/2024 173 MPV (fL) Date Value 08/30/2024 9.3 Glucose (mg/dL) Date Value 08/30/2024 102 (H) BUN (mg/dL) Date Value 08/30/2024 30 (H) Creatinine (mg/dL) Date Value 08/30/2024 1.31 (H) Sodium (mmol/L) Date Value 07/11/2024 138 Potassium (mmol/L) Date Value 07/11/2024 5.1 Chloride (mmol/L) Date Value 07/11/2024 106 CO2 (mmol/L) Date Value 08/30/2024 27 Protein, Total (g/dL) Date Value 08/30/2024 7.3 Albumin (g/dL) Date Value 08/30/2024 3.7 (L) Calcium, Total (mg/dL) Date Value 08/30/2024 9.1 Alkaline Phosphatase (U/L) Date Value 08/30/2024 80 Bilirubin, Total (mg/dL) Date Value 08/30/2024 0.4 AST (U/L) Date Value 08/30/2024 18 ALT (U/L) Date Value 08/30/2024 11 Cholesterol, Total (mg/dL) Date Value 03/30/2017 171 Triglyceride (mg/dL) Date Value 03/30/2017 118 DIAGNOSIS: (D53.1) 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 deficiency (primary encounter diagnosis) (D69.6) Thrombocytopenia (HCC) (D69.3) Chronic ITP (idiopathic thrombocytopenia) (HCC) PAST MEDICAL HISTORY Diagnosis Date Lupus Thrombocytopenia (HCC) PAST SURGICAL HISTORY Procedure Laterality Date COLONSCOPY SCREENING HIGH RISK 07/25/2022 HYSTERECTOMY HX Social History Tobacco Use Smoking status: Light Smoker Types: Cigarettes Passive exposure: Past Smokeless tobacco: Never Vaping Use Vaping status: Never Used Substance Use Topics Alcohol use: No Drug use: No History reviewed. No pertinent family history. Li Frank APRN, JORDI-C, OCN H[facility]ology [facility] On[facility] Services Provided at: [place], [place] CC: Dr. Atif Graf documented in this encounter [facility] 08-30-2024 Note [facility] 08-15-2024 History of Present illness Narrative Associated Problem(s): Family history of cancer Sister: breast Nieces: pancreatic: X3 Father: bone cancer Niece: colon cancer Associated Problem(s): Multiple lung nodules on CT Is due for repeat CT scan in 11/2024 Images from the original note were not included. Andrei Fish is a 73 y.o. female presents with chief complaint of No chief complaint on file. HPI: Hypertension This is a chronic problem. The current episode started more than 1 year ago. The problem is unchanged. The problem is controlled. Pertinent negatives include no anxiety, blurred vision, chest pain, headaches, palpitations, peripheral edema or shortness of breath. There are no associated agents to hypertension. Risk factors for coronary artery disease include obesity, sedentary lifestyle and post-menopausal state. Past treatments include diuretics and TRENA inhibitors. The current treatment provides significant improvement. There are no compliance problems. There is no history of kidney disease, CVA, heart failure or PVD. SUBJECTIVE: MEDICATIONS: Current Outpatient Medications Medication Instructions benzonatate (TESSALON) 100 mg, Every 6 hours PRN ergocalciferol (VITAMIN D-2) 50,000 Units, Weekly hydroCHLOROthiazide (HYDRODIURIL) 25 mg, Daily losartan (COZAAR) 50 mg, Nightly metoprolol succinate XL (TOPROL-XL) 12.5 mg, Oral, Daily, Do not crush or chew. pilocarpine (Salagen) 5 MG tablet 1 tablet, 3 times daily spironolactone (ALDACTONE) 25 mg, Daily RT Tavalisse 100 mg, Oral, 2 times daily ALLERGIES: Allergies Allergen Reactions Vancomycin Other States had burning sensation t/o entire body. (Infectious disease) States medication was given too fast. Umombgf-Qlwkwy-Bjvgh Pertussis Rash REVIEW OF SYMPTOMS: Review of Systems Constitutional: Negative for appetite change, chills and fever. HENT: Negative for congestion, ear pain and sore throat. Eyes: Negative for blurred vision, pain, discharge, redness and visual disturbance. Respiratory: Positive for cough. Negative for shortness of breath and wheezing. Cardiovascular: Negative for chest pain, palpitations and leg swelling. Gastrointestinal: Negative for abdominal pain, blood in stool, constipation, diarrhea, nausea and vomiting. Genitourinary: Negative for difficulty urinating, dysuria and frequency. Musculoskeletal: Positive for arthralgias. Negative for back pain, joint swelling and myalgias. Skin: [...] in her mother. OBJECTIVE: Visit Vitals BP 140/78 (BP Location: Left arm, Patient Position: Sitting, BP Cuff Size: Adult long) Pulse 65 Temp 98.7 F (Temporal) Resp 19 Ht 5' 3 Wt 182 lb 12.8 oz LMP (LMP Unknown) SpO2 99% BMI 32.38 kg/m OB Status Postmenopausal Smoking Status Every Day BSA 1.92 m Physical Exam Vitals and nursing note reviewed. Constitutional: General: She is not in acute distress. Appearance: Normal appearance. She is obese. HENT: Head: Normocephalic and atraumatic. Right Ear: External ear normal. Left Ear: External ear normal. Nose: Nose normal. Mouth/Throat: Mouth: Mucous membranes are moist. Eyes: Extraocular Movements: Extraocular movements intact. Conjunctiva/sclera: Conjunctivae normal. Neck: Vascular: No carotid bruit. Cardiovascular: Rate and Rhythm: Normal rate and regular rhythm. Pulses: Normal pulses. Heart sounds: Normal heart sounds. Pulmonary: Effort: Pulmonary effort is normal. Breath sounds: Normal breath sounds. No wheezing or rales. Abdominal: General: Bowel sounds are normal. There is no distension. Palpations: Abdomen is soft. There is no mass. Tenderness: There is no abdominal tenderness. Musculoskeletal: Cervical back: Normal range of motion and neck supple. Lymphadenopathy: Cervical: No cervical adenopathy. Skin: General: Skin is warm and dry. Capillary Refill: Capillary refill takes 2 to 3 seconds. Findings: No rash. Neurological: General: No focal deficit present. Mental Status: She is alert and oriented to person, place, and time. Psychiatric: Mood and Affect: Mood normal. Behavior: Behavior normal. Thought Content: Thought content normal. Judgment: Judgment normal. ASSESSMENT AND PLAN: Follow up in about 3 months (around 11/12/2024) for Recheck. Problem List Items Addressed This Visit Essential hypertension (CMS/HCC) Please check blood pressure daily and record DASH diet Limit caffeine Take medication as directed Contact office if chest pain, pressure, dizziness, shortness of breath, swelling legs Recommend slow position changes Current meds: hydrochlorothiazide, losartan, metoprolol, aldactone Qualitative platelet defects (CMS/HCC) Continue with Hem/onc Relevant Medications Fostamatinib Disodium (Tavalisse) 100 MG tablet Tobacco dependence The patient has been advised of the risks of continued smoking: stroke, KS, all forms of cancer, lung disease, and [...] contraindicated). Limit sodas, juices, and sugary drinks. Immune thrombocytopenic purpura (CMS/HCC) Fu as per Hem/onc Relevant Medications Fostamatinib Disodium (Tavalisse) 100 MG tablet Systemic lupus erythematosus, unspecified (CMS/HCC) - Primary No current treatment Coronary artery disease involving stockbridge coronary artery of stockbridge heart (CMS/HCC) Takes b clarke PAH (pulmonary artery hypertension) (CMS/HCC) Per ECHO Elevated pressures, has hx of ADALBERTO, not treated Pre-diabetes No current meds Watch for increase in thirst, urination, or appetite. Inspect feet frequently monitoring for open wounds , and also recommend yearly eye exam. Pt should attempt to remain as physically active as chronic conditions allow, as well as trying to follow a diet low in carbohydrates, and simple sugars. A1c 6.3 (04/02) Multiple lung nodules on CT Is due for repeat CT scan in 11/2024 Chronic kidney disease, stage 3a (HCC) (CMS/HCC) Continue with Nephrology dr arriola Keep BP at goal Family history of cancer Sister: breast Nieces: pancreatic: X3 Father: bone cancer Niece: colon cancer Other Visit Diagnoses Secondary pulmonary arterial hypertension (CMS/HCC) Associated Problem(s): Tobacco dependence The patient has been advised of the risks of continued smoking: stroke, KS, all forms of cancer, lung disease, and [...] counseled on the importance of smoking cessation. Associated Problem(s): Systemic lupus erythematosus, unspecified (CMS/HCC) No current treatment Associated Problem(s): Qualitative platelet defects (CMS/HCC) Continue with Hem/onc Associated Problem(s): Immune thrombocytopenic purpura (CMS/HCC) Fu as per Hem/onc Associated Problem(s): Pre-diabetes No current meds Watch for increase in thirst, urination, or appetite. Inspect feet frequently monitoring for open wounds , and also recommend yearly eye exam. Pt should attempt to remain as physically active as chronic conditions allow, as well as trying to follow a diet low in carbohydrates, and simple sugars. A1c 6.3 (04/02) Associated Problem(s): Obesity (BMI 30-39.9) Discussed with patient their BMI (actual, verses recommended). We have also discussed lifestyle modifications: attempts to perform physical activity as chronic conditions allow, also to monitor dietary intake: increasing protein/fruits/veggies and lowering carb intake (unless contraindicated). Limit sodas, juices, and sugary drinks. Associated Problem(s): Chronic kidney disease, stage 3a (HCC) (CMS/HCC) Continue with Nephrology dr arriola Keep BP at goal Associated Problem(s): PAH (pulmonary artery hypertension) ([facility]) Per ECHO Elevated pressures, has hx of ADALBERTO, not treated Associated Problem(s): Essential hypertension ([facility]/HCC) Please check blood pressure daily and record DASH diet Limit caffeine Take medication as directed Contact office if chest pain, pressure, dizziness, shortness of breath, swelling legs Recommend slow position changes Current meds: hydrochlorothiazide, losartan, metoprolol, aldactone Associated Problem(s): Coronary artery disease involving stockbridge coronary artery of stockbridge heart ([facility]) Takes b clarke Associated Problem(s): Obstructive sleep apnea syndrome .L documented in this encounter [facility] 08-15-2024 Instructions Stephanie Dumont NP - 08/15/2024 10:30 AM EST I will place a referral to [facility] in [place] For cancer gene testing, they should call you for this CT chest: due 12/01, we will call you documented in this encounter [facility] 07-31-2024 Telephone encounter Note Herminio Carlson notified of appeal being approved 07/31/24. They will reach out to Andrei to complete enrollment application. I let Andrei a voice mail making her aware of this outreach call from Herminio. Emiliano Harden, KrissD, BCOP [facility] Work Phone: 07-31-2024 Miscellaneous Notes Herminio [facility] Robyn notified of appeal being approved 07/31/24. They will reach out to Andrei to complete enrollment application. I let Andrei a voice mail making her aware of this outreach call from Herminio. Emiliano Harden PharmD, MELECIOOP Approved on Appeal! I will notify [facility]in[facility] 07/30/24, as they are closed for Day observance. The out of pocket cost is $2000 (medicare deductible for 2024) or can enroll in Medicare Payment Plan, as I explained to Andrei on the phone. Thank you. Emiliano Harden PharmD, MELECIOOP Dr Landin please see below rationale as to why Andrei' insurance has denied her Tavalisse at his time (despite her being stable on therapy since 2020) I can appeal, but will need your assistance in that matter. Thank you Emiliano Harden PharmD, BCOP Ambulatory Pharmacy Prior Authorization Note Provider Intervention Required?: No- Pharmacy completed on your behalf. Rx Plan: [facility] [facility]: Tavalisse Cover My Meds Da Silva: [id number] Determination: Denied PA Denied because: Formulary Tavalisse is denied because it is not on your plan's Drug List (formulary). Medication authorization requires the following: (1) You need to try three (3) of these covered drugs: (a) Bivigam, Flebogamma DIF, Gammagard Liquid, Gammagard S/D IgA less than 1mcg/ml, Gammaked, Gammaplex, Gamunex-C, Octagam, Panzyga, or Privigen*. (b) Dexamethasone. (c) Methylprednisolone. (d) Promacta*. (2) OR your doctor needs to give us specific medical reasons why three (3) of the covered drug(s) are not appropriate for you Prior Authorization/Case #: [id number] Prior Authorization Expiration: Time to PA Submission in CMM: 15 min Time to PA Determination in CMM: 2 days Additional Information: Additional information faxed over 07/23/24 at insurer's request For questions relating to this submission, please contact [facility] at [phone] Phone call placed to Paulalicia to inform her of Herminio Nunn's new requirements for 2024 Free Drug Program. Copy of prescription insurance card Most recent SS statement or tax return Look into LIS (she states they have and do not qualify) Enroll in Medicare Prescription Payment Plan for 2024 She understands and states she will complete this and understands that if she does not qualify that the most she will pay is $2000 out of pocket which will be split over 12 months once enrolled in the payment plan. Emiliano Harden PharmD, BCOP documented in this encounter [facility] 07-29-2024 Telephone encounter Note Approved on Appeal! I will notify Herminio [facility] 07/30/24, as they are closed for Day observance. The out of pocket cost is $2000 (medicare deductible for 2024) or can enroll in Medicare Payment Plan, as I explained to Andrei on the phone. Thank you. Emiliano Harden PharmD, BCOP [facility] 07-24-[address] Landin please see below rationale as to why Andrei' insurance has denied her Tavalisse at his time (despite her being stable on therapy since 2020) I can appeal, but will need your assistance in that matter. Thank you Emiliano Harden, PharmD, BCOP [facility] 07-23-2024 Telephone encounter Note Ambulatory Pharmacy Prior Authorization Note Provider Intervention Required?: No- Pharmacy completed on your behalf. Rx Plan: [facility] [facility]: Tavalisse Cover My Meds Da Silva: [id number] Determination: Denied PA Denied because: Formulary Tavalisse is denied because it is not on your plan's Drug List (formulary). Medication authorization requires the following: (1) You need to try three (3) of these covered drugs: (a) Bivigam, Flebogamma DIF, Gammagard Liquid, Gammagard S/D IgA less than 1mcg/ml, Gammaked, Gammaplex, Gamunex-C, Octagam, Panzyga, or Privigen*. (b) Dexamethasone. (c) Methylprednisolone. (d) Promacta*. (2) OR your doctor needs to give us specific medical reasons why three (3) of the covered drug(s) are not appropriate for you Prior Authorization/Case #: [id number] Prior Authorization Expiration: Time to PA Submission in CMM: 15 min Time to PA Determination in CMM: 2 days Additional Information: Additional information faxed over 07/23/24 at insurer's request For questions relating to this submission, please contact [facility] at [phone] [facility] 07-23-2024 Telephone encounter Note Phone call placed to Andrei to inform her of Herminio Nunn's new requirements for 2024 Free Drug Program. Copy of prescription insurance card Most recent SS statement or tax return Look into LIS (she states they have and do not qualify) Enroll in Medicare Prescription Payment Plan for 2024 She understands and states she will complete this and understands that if she does not qualify that the most she will pay is $2000 out of pocket which will be split over 12 months once enrolled in the payment plan. Emiliano Harden, PharmD, BCOP [facility] 07-11-2024 Note [facility] 07-11-2024 History of Present illness Narrative Patient Identification confirmed: yes. Injection given and documented on SEP per provider order. Monica Dowling MA documented in this encounter [facility] 07-11-2024 Instructions Emani Brizuela - 07/11/2024 11:13 AM EST B12 shot today and q 6 weeks Continue Tavalisse 100 mg BID RTC in 6 weeks Labs same day documented in this encounter [facility] 07-11-2024 History of Present illness Narrative Images from the original note were not included. NAME: Andrei Fish CLINIC NO.: [id number] DATE OF SERVICE: July 11, 2024 (Hong) Some elements in this clinic note that are critical to medical decision making have been carefully reviewed and included from a prior clinic note dated: May 30, 2024 (Joon) Additional Clinicians involved in Paulalicia Fish's [...] day HPI: CASE HISTORY: Reverse Chronological Order 05/29/2024 - CT Chest: Stable appearance of numerous small nodules scattered within the lungs. Consider follow-up CT chest in 6 months to document continued stability and to help establish baseline. 03/29/2023 - US Renal Bilateral: Normal-sized kidneys [...] - Rituxan X 4 Updated Visit, July 11, 2024: Andrei returns for a follow up. She is doing well overall although endorses a cough - will send rx for Cade Das. Her sense of taste is still diminished, she wonders if it is a side effect of her ear surgery in 12/2023. Her appetite is normal. She remains compliant with Tavalisse. Platelet count decreased slightly to 139, anemia is stable. Updated Visit, May 30, 2024: Andrei returns today for a follow up. She was COVID positive a few weeks ago, which caused her to lose her sense of taste - subsequently lost 10lbs. She had a CT chest to monitor pulmonary nodules - stable overall. Leg pain persists - etiology is still unknown. Platelets 157 today - continue Tavalisse 100mg BID. Hemoglobin is stable. Updated Visit, April 18, 2024: Andrei returns for a follow up. Her anemia has improved since February, platelet count is within normal ranges. Will continue her current treatment regimen. She is following with other providers for leg pain, endorses she feels the same as when she previously had an infected wound. Workup so far has been unrevealing. Updated Visit, March 05, 2024: Andrei returns today for a follow up. Platelets are stable, she is more anemic today. Will give B12 injection today. Her eardrum repair was successful. She complains of continued weakness in her legs. 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 She states that [...] 08/29/2022 and then a follow-up with her ecotherapist on 09/07/2022. Overall, she is doing well [...] they are slightly increased. Got back from [place] and saw her sisters and had a [...] had a consultation with nephrology, Dr. Gilson Arriola. Dr. Arriola increased her losartan to 50 mg daily. [...] why she was going to see a ecotherapist for her blood pressure. Patient also has [...] PERFORMANCE STATUS: 0 PHYSICAL EXAMINATION: Vitals: BP 136/83 Pulse 77 Temp (Src) 97.6 (Temporal) Resp 18 Ht 5' 2.52 (1.59m) Wt 186 lb 8.2 oz (84.6kg) SpO2 97% BMI 33.55 kg/(m^2). Body surface area is 1.93 meters squared. Exam limited to gross visualization [...] Vancomycin Unknown Burning sensation Diphtheria,Pertussi* Rash MEDICATIONS: fostamatinib (TAVALISSE) 100 mg tablet Take 1 tablet by mouth two times a day. metoprolol succinate ER (TOPROL XL) 25 mg 24 hr tablet Take 12.5 mg by mouth once daily. pilocarpine (SALAGEN) 5 mg tablet Take 1 [...] tablet PLEASE SEE ATTACHED FOR DETAILED DIRECTIONS spironolactone (ALDACTONE) 25 mg tablet Take 25 mg by mouth once daily. benzonatate (TESSALON PERLE) 100 mg capsule Take 1 capsule by mouth every 6 hours as needed for cough. methocarbamol (ROBAXIN) 750 mg tablet Take 750 mg by mouth three times a day. (Patient not taking: Reported on 07/11/2024) traMADol (ULTRAM) 50 mg tablet Take 50 mg by mouth every 6 hours as needed for pain. (Patient not taking: Reported on 07/11/2024) ondansetron orally disintegrating (ZOFRAN ODT) 4 mg disintegrating tablet Take 4 mg by mouth every 8 hours as needed for nausea/vomiting. (Patient not taking: Reported on 07/11/2024) oxyCODONE-acetaminophen (PERCOCET) 5-325 mg tablet Take 1 tablet by mouth every 6 hours as needed for pain. (Patient not taking: Reported on 07/11/2024) cholecalciferol, vitamin D3, (VITAMIN D3 ORAL) Take by mouth. (Patient not taking: Reported on 07/11/2024) LABORATORY VALUES: WBC (k/uL) Date Value 07/11/2024 4.31 RBC (m/uL) Date Value 07/11/2024 3.44 (L) Hemoglobin (g/dL) Date Value 07/11/2024 10.9 (L) Hematocrit (%) Date Value 07/11/2024 34.4 (L) MCV (fL) Date Value 07/11/2024 100.0 MCH (pg) Date Value 07/11/2024 31.7 MCHC (g/dL) Date Value 07/11/2024 31.7 RDW-CV (%) Date Value 07/11/2024 13.9 Platelet Count (k/uL) Date Value 07/11/2024 139 (L) MPV (fL) Date Value 07/11/2024 9.1 Glucose (mg/dL) Date Value 07/11/2024 111 (H) BUN (mg/dL) Date Value 07/11/2024 34 (H) Creatinine (mg/dL) Date Value 07/11/2024 1.34 (H) Sodium (mmol/L) Date Value 07/11/2024 138 Potassium (mmol/L) Date Value 07/11/2024 5.1 Chloride (mmol/L) Date Value 07/11/2024 106 CO2 (mmol/L) Date Value 07/11/2024 25 Protein, Total (g/dL) Date Value 07/11/2024 7.1 Albumin (g/dL) Date Value 07/11/2024 3.8 (L) Calcium, Total (mg/dL) Date Value 07/11/2024 9.8 Alkaline Phosphatase (U/L) Date Value 07/11/2024 68 Bilirubin, Total (mg/dL) Date Value 07/11/2024 0.4 AST (U/L) Date Value 07/11/2024 18 ALT (U/L) Date Value 07/11/2024 11 Cholesterol, Total (mg/dL) Date Value 03/30/2017 171 Triglyceride (mg/dL) Date Value 03/30/2017 118 DIAGNOSIS: (D53.1) 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 deficiency (primary encounter diagnosis) (D69.3) Chronic ITP (idiopathic thrombocytopenia) (HCC) PAST MEDICAL HISTORY Diagnosis Date Lupus (HCC) Thrombocytopenia (HCC) PAST SURGICAL HISTORY Procedure Laterality Date COLONSCOPY SCREENING HIGH RISK 07/25/2022 HYSTERECTOMY HX Social History Tobacco Use Smoking status: Light Smoker Types: Cigarettes Passive exposure: Past Smokeless tobacco: Never Vaping Use Vaping status: Never Used Substance Use Topics Alcohol use: No Drug use: No No family history on file. Li Frank APRN, DIFFUSION FURNACE OPERATOR-C, [facility] Provided at: [place], [place] Scribe Attestation: This note was scribed by Emani Brizuela on July 11, 2024 under the direction and supervision of Li Frank. I attest that all of the information documented is correct to the best of my knowledge. Provider Attestation: I, Li Frank, attest that all information documented by the above scribe is correct, and was supervised by me and under my direction. CC: Dr. Atif Graf Patient states that she has a cough it was better for awhile but has began again. Monica Dowling MA documented in this encounter [facility] 07-11-2024 Note [facility] 07-11-2024 Note [facility] 05-31-2024 Note Orthopedic Surgery Subjective Follow-up and Pain of the Left Lower Leg 05/31/24 Andrei Fish is a 73 y.o. female presenting for a 5 month history of left knee soreness rated at 3-6 in intensity that is worse with activity and palpation. The pain radiates down to the left leg. She also has associated weakness in the knee at this time which she reports gives her a sensation that she will pass out. She has a long history of numbness in the left lower extremity but no new numbness noted. She denies fevers, chills and SOB. Of note, she has a history of left tibia and fibula fracture treated with external fixation treated by Dr. Donnelly that subsequently developed infection and compartment syndrome in 2003. She has had numerous imaging studies and labs performed by physicians in multiple specialties over the past year. She does have a history of covid-19 infection in March 2024. She takes nothing for the pain. She notes her main complaint is weakness, not pain. No new injury. History Past Surgical History: Procedure Laterality Date APPENDECTOMY BREAST CYST EXCISION Bilateral CHOLECYSTECTOMY ORIF TIBIA FRACTURE Left Past Medical History: Diagnosis Date Hypertension Objective General: Body mass index is 32.59 kg/m???. No acute distress, comfortable Respiratory: Unlabored breathing with normal rate, no cough Cardiovascular: Warm well perfused extremities Psych: Appropriate mood behavior Left Knee: Inspection of the lower extremity revealed multiple surgical scars and STSG healed over a lateral fasciotomy and trace edema. No sings of fluid drainage, erythema, or signs of infection. No flucutance. Palpation of the medial and lateral aspect of the knee and proximal tibia reproduced the patient's pain. No warmth noted. Sensation: Light touch sensation decreased below the midshaft region of the left lower extremity and foot. Motion: ROM 0-130 degrees Stability: Varus and valgus stress of the knee did not reveal laxity or pain Strength: - Hip flexion 5/5 - Knee flexion 5/5 - Knee extension 5/5 - Plantar flexion 5/5 - Dorsiflexion 5/5 Gait: Normal swing and stance phase without pain or limp Pulses: Dorsalis pedis pulses 1+ left foot Imaging personally reviewed: CT Chest without contrast 05/29/2024: Stable appearance of numerous small nodules scattered within the lungs. Consider follow-up CT chest in 6 months Xray of the left tibia and fibula 05/21/2024: Old posttraumatic changes proximal tibia and fibula unchanged. Methyl methacrylate noted within and adjacent to proximal tibial shaft unchanged. Osteopenia is noted. No evidence of acute fracture, dislocation, or aggressive osseous lesions. Bone scan obtained on 05/02/2024: Nonspecific abnormal uptake in the right patella/tibia and left proximal tibia/adjacent soft tissue. Recommend correlation with new radiographs of the bilateral knees and left tibia and fibula. Vascular artery doppler bilateral lower extremities 03/01/24: Normal lower extremity arterial physiological examination at rest.Waveform data is consistent with no significant arterial obstruction at rest. Labs: CBC, CMP, Iron studies, Ferritin, B12, and Folate levels obtained at the [facility] on 05/30/2024 were normal except: Hemoglobin 10.5. CRP 05/21/2024: 14.7 (normal <5) ESR 05/21/2024: 91 Assessment/Plan Andrei Fish is a 73 y.o. female Presenting today for about a 5 month history of left knee weakness and soreness, 20 years s/p left tibia and fibula fx treated with external fixator and concomitant infection and compartment syndrome. Findings today, her lab work, and imaging help to rule out infection. Given her infection history, chronicity of pain/weakness, and extensive medical history we recommend obtaining an MRI with contrast of the left knee and tibia to rule out abscess, fracture, and any signs of infection. We had a very long discussion with the patient regarding her medical history, review of her labs and imaging studies, and plan for further evaluation. The patient demonstrated understanding and agreement with the treatment plan. Plan: - Obtain MRI without contrast of the left knee, left tibia, and left fibula - Follow up after MRI is obtained, patient instructed to bring copies of her imaging and report to her next appointment. - May also reorder infection labs then to trend. Blaise Tamayo 05/31/24 10:36 AM As the teaching physician, I have personally performed or re-performed the history of present illness, physical exam and medical decision-making activities of the encounter and verified the medical student's documentation. I made pertinent changes as necessary to ensure accurate documentation. There may be additional comments below. [facility] 05-30-2024 Nurse Note Patient Identification confirmed: yes. Injection given and documented on MAR per provider order. Monica Dowling MA [facility] 05-30-2024 Nurse Note Patient Identification confirmed: yes. Injection given and documented on MAR per provider order. Monica Dowling MA documented in this encounter [facility] 05-30-2024 Instructions Rinku Ramsey MD - 05/30/2024 11:01 AM EST B12 shot today and q 6 weeks Continue Tavalisse 100 mg BID RTC in 6 weeks Labs same day documented in this encounter [facility] 05-30-2024 History of Present illness Narrative Images from the original note were not included. NAME: Abe Andrei CLINIC NO.: [id number] DATE OF SERVICE: May 30, 2024 (Joon) Some elements in this clinic note that are critical to medical decision making have been carefully reviewed and included from a prior clinic note dated: April 18, 2024 (Joon) Additional Clinicians involved in Odes Z Fish's care: Dr. Deluna, Dr. Susanna Graf [...] day HPI: CASE HISTORY: Reverse Chronological Order 05/29/2024 - CT Chest: Stable appearance of numerous small nodules scattered within the lungs. Consider follow-up CT chest in 6 months to document continued stability and to help establish baseline. 03/29/2023 - US Renal Bilateral: Normal-sized kidneys [...] 2017 - Rituxan X 4 Updated Visit, May 30, 2024: Andrei returns today for a follow up. She was COVID positive a few weeks ago, which caused her to lose her sense of taste - subsequently lost 10lbs. She had a CT chest to monitor pulmonary nodules - stable overall. Leg pain persists - etiology is still unknown. Platelets 157 today - continue Tavalisse 100mg BID. Hemoglobin is stable. Updated Visit, April 18, 2024: Andrei returns for a follow up. Her anemia has improved since February, platelet count is within normal ranges. Will continue her current treatment regimen. She is following with other providers for leg pain, endorses she feels the same as when she previously had an infected wound. Workup so far has been unrevealing. Updated Visit, March 05, 2024: Andrei returns today for a follow up. Platelets are stable, she is more anemic today. Will give B12 injection today. Her eardrum repair was successful. She complains of continued weakness in her legs. 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 She states that [...] 08/29/2022 and then a follow-up with her ecotherapist on 09/07/2022. Overall, she is doing well [...] they are slightly increased. Got back from [place] and saw her sisters and had a [...] had a consultation with nephrology, Dr. Gilson Arriola. Dr. Arriola increased her losartan to 50 mg daily. [...] why she was going to see a ecotherapist for her blood pressure. Patient also has [...] PERFORMANCE STATUS: 0 PHYSICAL EXAMINATION: Vitals: BP 145/80 Pulse 71 Temp (Src) 97.2 (Temporal) Resp 16 Ht 5' 2.52 (1.59m) Wt 183 lb 10.3 oz (83.3kg) SpO2 97% BMI 33.03 kg/(m^2). Body surface area is 1.92 meters squared. Exam limited to gross visualization [...] Vancomycin Unknown Burning sensation Diphtheria,Pertussi* Rash MEDICATIONS: fostamatinib (TAVALISSE) 100 mg tablet Take 1 tablet by mouth two times a day. methocarbamol (ROBAXIN) 750 mg tablet Take 750 [...] tablet PLEASE SEE ATTACHED FOR DETAILED DIRECTIONS spironolactone (ALDACTONE) 25 mg tablet Take 25 mg by mouth once daily. benzonatate (TESSALON PERLE) 100 mg capsule TAKE 1 CAPSULE BY MOUTH EVERY 6 HOURS NEEDED FOR COUGH. cholecalciferol, vitamin D3, (VITAMIN D3 ORAL) Take by mouth. LABORATORY VALUES: WBC (k/uL) Date Value 05/30/2024 4.57 RBC (m/uL) Date Value 05/30/2024 3.31 (L) Hemoglobin (g/dL) Date Value 05/30/2024 10.5 (L) Hematocrit (%) Date Value 05/30/2024 32.8 (L) MCV (fL) Date Value 05/30/2024 99.1 MCH (pg) Date Value 05/30/2024 31.7 MCHC (g/dL) Date Value 05/30/2024 32.0 RDW-CV (%) Date Value 05/30/2024 14.6 Platelet Count (k/uL) Date Value 05/30/2024 157 MPV (fL) Date Value 05/30/2024 9.5 Glucose (mg/dL) Date Value 05/30/2024 118 (H) BUN (mg/dL) Date Value 05/30/2024 32 (H) Creatinine (mg/dL) Date Value 05/30/2024 1.24 (H) Sodium (mmol/L) Date Value 05/30/2024 141 Potassium (mmol/L) Date Value 05/30/2024 4.8 Chloride (mmol/L) Date Value 05/30/2024 106 CO2 (mmol/L) Date Value 05/30/2024 27 Protein, Total (g/dL) Date Value 05/30/2024 7.3 Albumin (g/dL) Date Value 05/30/2024 3.7 (L) Calcium, Total (mg/dL) Date Value 05/30/2024 9.4 Alkaline Phosphatase (U/L) Date Value 05/30/2024 74 Bilirubin, Total (mg/dL) Date Value 05/30/2024 0.5 AST (U/L) Date Value 05/30/2024 20 ALT (U/L) Date Value 05/30/2024 13 Cholesterol, Total (mg/dL) Date Value 03/30/2017 171 Triglyceride (mg/dL) Date Value 03/30/2017 118 DIAGNOSIS: (D53.1) 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 deficiency (primary encounter diagnosis) (D69.3) Chronic ITP (idiopathic thrombocytopenia) (HCC) (D69.6) Thrombocytopenia (HCC) (R73.9) Hyperglycemia (G47.33) Obstructive sleep apnea syndrome PAST MEDICAL [...] which included preparing to see the patient, [id number] patient care, completing clinical documentation, obtaining and/or reviewing separately obtained history, performing a medically appropriate examination, counseling and educating the patient/family/caregiver, ordering medications, tests, or procedures, communicating with other HCPs (not separately reported), independently interpreting results (not separately reported), communicating results to the patient/family/caregiver, and care coordination (not separately reported). Rinku Ramsey MD, CPE Hematology and Oncology Services Provided at: [facility], [place], [place] Scribe Attestation: This note was scribed by Emani Brizuela on May 30, 2024 under the direction and supervision of Dr. Rinku Ramsey. I attest that all of the information documented is correct to the best of my knowledge. Provider Attestation: I, Rinku Ramsey MD, attest that all information documented by the above scribe is correct, and was supervised by me and under my direction. CC: Dr. Atif Graf documented in this encounter [facility] 05-30-2024 Note [facility] 05-23-2024 Telephone encounter Note Please contact pt, I reviewed her notes from Dr Mayo, I see she is going to see him back in a few months, he also recommended she see an network desktop support specialist d/t one of her thyroid labs trending toward an over active state. It is time to recheck those thyroid labs and if they are still off then I will send her to see endo No fasting is needed for labs, have her get these done in the next week please [place] [facility] 05-23-2024 Miscellaneous Notes Please contact pt, I reviewed her notes from Dr Mayo, I see she is going to see him back in a few months, he also recommended she see an network desktop support specialist d/t one of her thyroid labs trending toward an over active state. It is time to recheck those thyroid labs and if they are still off then I will send her to see endo No fasting is needed for labs, have her get these done in the next week please [place] documented in this encounter [facility] 05-21-2024 Note HX LT TIB/FIB FX WIT H EXTERNAL FIX; PT THEN GOT AN INFECTION NEEDING A SKIN GRAFT- DONE BY DR DONNELLY 2003. REFERRAL FROM DR. AVALOS HPI Here today for left tibia, referred from Dr Avalos due to recent bone scan findings of activity to left tibia, previous history of infection Reported by patient. Location: left Quality: ache, 6+ weeks Severity: mild Alleviating Factors: no issues Aggravating Factors: cannot identify Associated Symptoms: + weakness; no numbness; no tingling; no swelling; no redness; no warmth; no ecchymosis; Previous Surgery: surgical procedure:left tibia Prior Imaging: x ray ROS Patient reports arthralgias/joint pain . reports no fever and no chills. reports no chest pain. reports no numbness and no weakness. Physical Exam Patient is a 73 yo female Constitutional: General Appearance: NAD and comfort comfortable. Psychiatric: Orientation: oriented to time, place, and person. Mood and Affect: normal affect and mood and active and alert. Gait and Station: Appearance: no assistive devices Cardiovascular System: Extremities warm and well perfused Lymph Nodes: Mood and Affect: mood and affect normal. Skin: Intact Neurologic: Sensation: grossly intact. Head: Head: normocephalic and atraumatic. Neck: Neck: trachea midline. Lungs: Respiratory effort: no dyspnea. KNEE Left Left knee palpation is unremarkable. Increased warmth: none Masses: none Crepitus: patellofemoral Tenderness: anterior tibia Tenderness comment: Pain posterior knee occasional with activtiy.. pt has tenderness to anterior read. compartments soft, Range of Motion Left Left knee range of motion is normal and full. Strength Left Left knee strength is normal. Extension: 5/5. Flexion: 5/5. Strength additional comments: Painless prom of knee Neurovascular Left Sensation comment: chronic decreased sensation to lateral read/ bottom/ top of foot present since prior surgery. Capillary refill: warm and well-perfused Xrays Old posttraumatic changes proximal tibia and fibula unchanged. Methyl methacrylate noted within and adjacent to proximal tibial shaft unchanged. Osteopenia is noted. No evidence of acute fracture, dislocation, or aggressive osseous lesions Bone scan IMPRESSION: * Nonspecific abnormal uptake in the left proximal tibia/adjacent soft tissue.a. Plan Blood work Bring actual bone scan films to appointment with Dr Ballard [facility] 05-15-2024 History of Present illness Narrative Subjective Patient ID: Andrei Fish is a 73 y.o. female who presents for Thyroid Nodule (FNA 04/16/24 [facility]) Pt had a thyroid US after found to have a low TSH. US showed a 13mm and 20mm RT TR4 nodule and a 21mm LT TR3 nodule. Path sowed a Archie 2 nodule. No radiation exposure. No family h/o thyroid CA. TSH 0.29 Family History Problem Relation Name Age of Onset Diabetes Mother Hypertension Mother Heart disease Mother Cancer Father Breast cancer Sister Heart disease Sibling Cancer Sibling Active Ambulatory Problems Diagnosis Date Noted Chronic ITP (idiopathic thrombocytopenia) (CMS/HCC) 05/26/2016 Disease of thyroid gland (CMS/HCC) 06/28/2022 Essential hypertension (CMS/HCC) 05/13/2021 Family history of breast cancer 04/13/2017 Lupus 03/03/2016 Nocturnal leg cramps 10/05/2017 Obstructive sleep apnea syndrome 05/13/2021 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CMS/HCC) 06/28/2022 Tobacco dependence 06/28/2022 Dry mouth 01/05/2017 Compression syndrome, nerve 06/28/2022 Abnormal weight loss 03/03/2016 Age-related osteoporosis without current pathological fracture (CMS/HCC) 06/06/2023 Ruptured ear drum, left 06/06/2023 Leg pain, bilateral 06/06/2023 Left wrist pain 06/06/2023 Obesity (BMI 30-39.9) 06/06/2023 Claudication of both lower extremities (CMS/HCC) 06/08/2023 PAD (peripheral artery disease) (CMS/HCC) 06/08/2023 Hyperkalemia with normal acid-base balance 11/27/2023 Cholesteatoma of left ear 11/14/2023 HL (hearing loss) 06/28/2022 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 Perforation of left tympanic membrane 06/29/2022 Other forms of systemic lupus erythematosus (CMS/HCC) 11/28/2023 Other fatigue 11/28/2023 Weakness of both legs 11/28/2023 Systemic lupus erythematosus, unspecified (CMS/HCC) 02/12/2024 Lumbar back pain 02/12/2024 Thyroid nodule (CMS/HCC) 02/26/2024 Coronary artery disease involving stockbridge coronary artery of stockbridge heart ([facility]) 02/26/2024 Calcification of aortic valve 02/26/2024 PAH (pulmonary artery hypertension) ([facility]) 03/27/2024 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 deficiency 03/05/2024 Elevated glucose level 04/04/2024 Encounter for screening mammogram for malignant neoplasm of breast 04/04/2024 Other chest pain 04/04/2024 Posterior left knee pain 04/04/2024 Pre-diabetes 04/05/2024 Diarrhea 04/24/[address] lung nodules on CT 05/07/2024 Encounter for subsequent annual wellness visit (AWV) in Medicare patient 05/14/2024 Resolved Ambulatory Problems Diagnosis Date Noted No Resolved Ambulatory Problems Past Medical History: Diagnosis Date Hypertension ([facility]) Past Surgical History: Procedure Laterality Date APPENDECTOMY BI MAMMO GUIDED LOCALIZATION BREAST LEFT Left 03/28/2017 BI MAMMO GUIDED LOCALIZATION BREAST LEFT 03/28/2017 BREAST BIOPSY Left BREAST LUMPECTOMY Left 07/2015 BREAST SURGERY CHOLECYSTECTOMY COLONOSCOPY 2008 EYE SURGERY FRACTURE SURGERY Left leg HYSTERECTOMY Allergies Allergen Reactions Vancomycin Other States had burning sensation t/o entire body. (Infectious disease) States medication was given too fast. Qebqiwd-Nfjzen-Jnzrz Pertussis Rash Current Outpatient Medications on File Prior to Visit Medication Sig Dispense Refill Fostamatinib Disodium 100 MG tablet Take 100 mg by mouth in the morning and 100 mg in the evening. hydroCHLOROthiazide (HYDRODiuril) 25 MG tablet Take 25 mg by mouth in the morning. losartan (Cozaar) 25 MG tablet Take 50 mg by mouth at bedtime methocarbamol (Robaxin) 750 MG tablet Take 750 mg by mouth in the morning and 750 mg at noon and 750 mg in the evening. metoprolol succinate XL (Toprol-XL) 25 MG 24 hr tablet Take 0.5 tablets (12.5 mg) by mouth Daily Do not crush or chew. 45 tablet 1 pilocarpine (Salagen) 5 MG tablet Take 1 tablet by mouth in the morning and 1 tablet in the evening and 1 tablet before bedtime. spironolactone (Aldactone) 25 MG tablet Take 25 mg by mouth in the morning. No current facility-administered medications on file prior to visit. Objective Last Recorded Vitals Vitals: 05/15/24 1415 BP: 109/64 ENT Physical Exam Constitutional Appearance: patient appears well-developed, well-nourished and well-groomed, Communication/Voice: communication appropriate for developmental age; vocal quality normal; Assessment/Plan Diagnoses and all orders for this visit: Hyperthyroidism (CMS/HCC) Thyroid nodule (CMS/HCC) - Ambulatory referral to ENT Pt has a fairly low risk MNG. Repeat US 6 mo after the original US. Recommend referral to Dr Fuentes to manage pt's hyperthyroidism as she will need to be suppressed should surgery eventually be needed documented in this encounter [facility] 05-14-2024 History of Present illness Narrative Associated Problem(s): Essential hypertension (CMS/HCC) No dose changes in meds Pt seen dr curran yesterday- she is going to be seen in [place] for her left knee elimination? Images from the original note were not included. Andrei Fish is a 73 y.o. female presents with chief complaint of No chief complaint on file. HPI: Here for AWV: Diet: variety, tries to limit potatoes Activity: none, limited with knee issues Mental Health Concerns: none Falls in the last year: one Still driving:yes Do you pay your bills:yes Any hearing problems: none Any Vision problems: supposed to wear glasses Any Hospitalizations in the last year: none Specialist: Jess Sorto and Prema Royal (both ENT), Maria Ines Butterfield Vision, HCPOA/Living Will: No Concerns: seeing ortho in [place] SUBJECTIVE: MEDICATIONS: Current Outpatient Medications Medication Instructions Fostamatinib Disodium 100 mg, 2 times daily hydroCHLOROthiazide (HYDRODIURIL) 25 mg, Daily losartan (COZAAR) 50 mg, Nightly methocarbamol (ROBAXIN) 750 mg, 3 times daily metoprolol succinate XL (TOPROL-XL) 12.5 mg, Oral, Daily, Do not crush or chew. pilocarpine (Salagen) 5 MG tablet 1 tablet, 3 times daily spironolactone (ALDACTONE) 25 mg, Daily RT ALLERGIES: Allergies Allergen Reactions Vancomycin Other States had burning sensation t/o entire body. (Infectious disease) States medication was given too fast. Qdnmcyl-Zzruyu-Sojfl Pertussis Rash REVIEW OF SYMPTOMS: Review of Systems Constitutional: Negative for appetite change, chills and fever. HENT: Negative for congestion, ear pain and sore throat. Eyes: Negative for pain, discharge, redness and visual disturbance. Respiratory: Negative for cough, shortness of breath and wheezing. Cardiovascular: Positive for leg swelling. Negative for chest pain and palpitations. Gastrointestinal: Negative for abdominal pain, blood in stool, constipation, diarrhea, nausea and vomiting. Genitourinary: Negative for difficulty urinating, dysuria and frequency. Musculoskeletal: Positive for arthralgias and joint swelling. Negative for back pain and myalgias. Skin: Negative for rash and [...] in her mother. OBJECTIVE: Visit Vitals BP 116/70 (BP Location: Left arm, Patient Position: Sitting, BP Cuff Size: Adult long) Pulse 75 Temp 98.7 F (Temporal) Resp 19 Ht 5' 3 Wt 187 lb LMP (LMP Unknown) SpO2 97% BMI 33.13 kg/m OB Status Postmenopausal Smoking Status Every Day BSA 1.94 m Physical Exam Vitals and nursing note reviewed. Constitutional: General: She is not in acute distress. Appearance: Normal appearance. HENT: Head: Normocephalic and atraumatic. Right Ear: External ear normal. Left Ear: External ear normal. Nose: Nose normal. Mouth/Throat: Mouth: Mucous membranes are moist. Eyes: Extraocular Movements: Extraocular movements intact. Conjunctiva/sclera: Conjunctivae normal. Neck: Vascular: No carotid bruit. Cardiovascular: Rate and Rhythm: Normal rate and regular rhythm. Pulses: Normal pulses. Heart sounds: Normal heart sounds. Pulmonary: Effort: Pulmonary effort is normal. Breath sounds: Normal breath sounds. No wheezing or rales. Abdominal: General: Bowel sounds are normal. There is no distension. Palpations: Abdomen is soft. There is no mass. Tenderness: There is no abdominal tenderness. Musculoskeletal: General: Normal range of motion. Cervical back: Normal range of motion and neck supple. Right lower leg: Edema present. Left lower leg: Edema present. Lymphadenopathy: Cervical: No cervical adenopathy. Skin: General: Skin is warm and dry. Capillary Refill: Capillary refill takes 2 to 3 seconds. Findings: No rash. Neurological: General: No focal deficit present. Mental Status: She is alert and oriented to person, place, and time. Psychiatric: Mood and Affect: Mood normal. Behavior: Behavior normal. Thought Content: Thought content normal. Judgment: Judgment normal. ASSESSMENT AND PLAN: No follow-ups on file. Problem List Items Addressed This Visit Essential hypertension (CMS/HCC) No dose changes in meds Tobacco dependence The patient has been advised of the risks of continued smoking: stroke, [place], all forms of cancer, lung disease, and [...] counseled on the importance of smoking cessation. Age-related osteoporosis without current pathological fracture ([facility]) Relevant Orders DEXA bone density Obesity (BMI 30-39.9) Coronary artery disease involving stockbridge coronary artery of stockbridge heart ([facility]/HCC) Stress test was negative Pre-diabetes Check blood sugars daily, notify if <70 [...] and simple sugars. UTD on A1c test Encounter for subsequent annual wellness visit (AWV) in Medicare patient - Primary I have reviewed Ht/Wt/BMI, I have reviewed [...] office for wellness on a yearly basis Associated Problem(s): Coronary artery disease involving stockbridge coronary artery of stockbridge heart (CMS/HCC) Stress test was negative Associated Problem(s): Pre-diabetes Check blood sugars daily, notify if <70 [...] and simple sugars. UTD on A1c test Associated Problem(s): Tobacco dependence The patient has been advised of the risks of continued smoking: stroke, KS, all forms of cancer, lung disease, and [...] counseled on the importance of smoking cessation. Associated Problem(s): Encounter for subsequent annual wellness visit (AWV) in Medicare patient I have reviewed Ht/Wt/BMI, I have reviewed [...] office for wellness on a yearly basis documented in this encounter [facility] 05-13-2024 History of Present illness Narrative HISTORY OF PRESENT ILLNESS: EST PT Andrei Fish is an 73 y.o. @ female. EST PT WITH VICTOR M- RECHECK LT LOWER LEG PAIN ~11/2023-NO NEW INJURY- HERE FOR BONE SCAN RESULTS 05/02/24 FM XRAY L-SPINE TODAY EPIC 05/13/24 XRAY LT TIB/FIB EPIC 04/09/24 HX LT TIB/FIB FX WITH EXTERNAL FIX; PT THEN GOT AN INFECTION NEEDING A SKIN GRAFT- DONE BY DR DONNELLY 2003 BONE SCAN 05/02/24 FM NOTES SOME TENDERNESS ANTERIOR LEG/READ REGION- SOME MEDIAL KNEE PAIN- C/O WEAKNESS POSTERIOR KNEE- WEARS COMPRESSION STOCKINGS- DIFFICULTY WALKING LONG DISTANCES- NOTES LEG CRAMPING-+TYLENOL/IBUPROFEN PRN ALLERGIES: Allergies Allergen Reactions Vancomycin Other States had burning sensation t/o entire body. (Infectious disease) States medication was given too fast. Uejpqyn-Wnbyib-Stlcq Pertussis Rash HOME MEDICATIONS: Current Outpatient Medications Medication Instructions Fostamatinib Disodium 100 mg, Oral, 2 times daily hydroCHLOROthiazide (HYDRODIURIL) 25 mg, Oral, Daily losartan (COZAAR) 50 mg, Oral, 2 times daily methocarbamol (ROBAXIN) 750 mg, Oral, 3 times daily metoprolol succinate XL (TOPROL-XL) 12.5 mg, Oral, Daily, Do not crush or chew. pilocarpine (Salagen) 5 MG tablet 1 tablet, Oral, 3 times daily spironolactone (ALDACTONE) 25 mg, Oral, Daily RT PHYSICAL EXAM: Knee Musculoskeletal Exam Gait Gait [...] special signs are normal. Patellar apprehension: mild Vitals: There is no height or weight on file to calculate BMI. Tobacco Use: High Risk (05/13/2024) Patient History Smoking Tobacco Use: Every Day Smokeless Tobacco Use: Never Passive Exposure: Past Alcohol Use: Not on file IMAGING: Procedures Orders Placed This Encounter Procedures XR lumbar spine 2 or 3 views Order Specific Question: Reason for exam: Answer: PAIN Ambulatory referral to Orthopaedic Surgery Dr. Walls / Dr. Berger ; Please call patient to schedule, thank you. Evaluate and treat (L) LE Standing Status: Future Standing Expiration Date: 11/10/2024 Referral Priority: Routine Referral Type: Consultation Referral Reason: Specialty Services Required Requested Specialty: Orthopaedic Surgery Number of Visits Requested: 1 ASSESSMENT: ICD-10-CM 1. Left leg pain M79.605 Ambulatory referral to Orthopaedic Surgery 2. Lumbar pain M54.50 XR lumbar spine 2 or 3 views 3. Weakness of left lower extremity R29.898 PLAN: We have answered all the patients questions and explained the patients condition, decision making and plan including the risks and benefits associated with said plan in layman''s terms in a language the patient could understand easily. If patient''s symptoms significantly worsen and they cannot get a hold of us or their family physician, we have recommended that the patient proceed to the nearest emergency department (room). Dr. Avalos obtained history and examined the patient, I am acting as scribe for Dr. Avalos/laura, PLAN: We have reviewed prior (L) tib / fib xrays and discussed L-Spine xrays and bone scan results. She denies s/s of infection including, but not limited to : no fever, chills. After examination today we are recommending a referral to Dr. Walls / Dr. Berger for further evaluation and to r/o an infection with patient's verbal agreerance. We have discussed her HEP and restrictions and will see her back on a prn basis. Herson Avalos D.O. documented in this encounter [facility] 04-25-2024 Telephone encounter Note Let the patient know that I did go ahead and do a referral to Dr Mayo for her thyroid biopsy so that we can see what his opinion is on what to do next LA [facility] 04-25-2024 Miscellaneous Notes Let the patient know that I did go ahead and do a referral to Dr Mayo for her thyroid biopsy so that we can see what his opinion is on what to do next LA documented in this encounter [facility] 04-24-2024 History of Present illness Narrative Associated Problem(s): Diarrhea No fever, blood or abd pain It is intermittent Will monitor at this time Associated Problem(s): Pre-diabetes Limit carbs/ sugary foods/drinks Will hold on meds at this time Monitor A1c in 3 months Associated Problem(s): Thyroid nodule (CMS/HCC) Biopsy resolved, bethesda-nondiagnostic, rare benign thyroid follicular cells Associated Problem(s): Coronary artery disease involving stockbridge coronary artery of stockbridge heart (CMS/HCC) No acute chest pain See ECHO results Has stress test next week Cont b clarke PT States she has been having on and off again diarrhea, she has had them come on with no signs of cramping, pain, stomach aches. Pt usually has a BM daily but her Bms have been fluctuating, she has even had two accidents on bowel inc. (All about two weeks ago) Pt does have complaints of not being able to taste anything and having poor appetite Images from the original note were not included. Andrei Fish is a 73 y.o. female presents with chief complaint of No chief complaint on file. HPI: Is here for a recheck: Is not having fatigue, chest pain at this time, her stress test is next week. She continues with Ortho as well, is going to have a bone scan. She does have an A1c test of 6.3% placing her in pre diabetes range. Strong family hx of DM, she denies any polyuria/dipsia as well. She had an A1c of 5.9% about 4 years ago. She does try to limit her carbs and sugar intake. Has had a recent weight loss of about 10 pounds in the last month, attributing this to COVID infection and loss of taste and smell. She also has had some episodes of intermittent diarrhea over the last 2 weeks, no blood, no pain, and feels like since having loss of taste and smell that she isnt eating the same things she usually does and this could also be related to diarrhea Had a thyroid biopsy as well: rare benign thyroid follicular cells, bethesda-nondiagnostic SUBJECTIVE: MEDICATIONS: Current Outpatient Medications Medication Instructions Fostamatinib Disodium 100 mg, Oral, 2 times daily hydroCHLOROthiazide (HYDRODIURIL) 25 mg, Oral, Daily losartan (COZAAR) 50 mg, Oral, 2 times daily methocarbamol (ROBAXIN) 750 mg, Oral, 3 times daily metoprolol succinate XL (TOPROL-XL) 12.5 mg, Oral, Daily, Do not crush or chew. pilocarpine (Salagen) 5 MG tablet 1 tablet, Oral, 3 times daily spironolactone (ALDACTONE) 25 mg, Oral, Daily RT ALLERGIES: Allergies Allergen Reactions Vancomycin Other States had burning sensation t/o entire body. (Infectious disease) States medication was given too fast. Popdyjh-Fspxzw-Dztyj Pertussis Rash REVIEW OF SYMPTOMS: Review of Systems Constitutional: Negative for appetite change, chills and fever. HENT: Negative for congestion, ear pain and sore throat. Eyes: Negative for pain, discharge, redness and visual disturbance. Respiratory: Negative for cough, shortness of breath and wheezing. Cardiovascular: Positive for leg swelling. Negative for chest pain and palpitations. Gastrointestinal: Positive for diarrhea. Negative for abdominal pain, blood in stool, constipation, nausea and vomiting. Genitourinary: Negative for difficulty urinating, dysuria and frequency. Musculoskeletal: Positive for arthralgias. Negative for back pain, joint swelling and myalgias. Skin: [...] in her mother. OBJECTIVE: Visit Vitals BP 138/72 (BP Location: Left arm, Patient Position: Sitting, BP Cuff Size: Adult long) Pulse 74 Temp 98.5 F (Temporal) Resp 19 Ht 5' 3 Wt 182 lb 12.8 oz LMP (LMP Unknown) SpO2 100% BMI 32.38 kg/m OB Status Postmenopausal Smoking Status Every Day BSA 1.92 m Physical Exam Vitals and nursing note reviewed. [...] is normal. Breath sounds: Normal breath sounds. Abdominal: General: Bowel sounds are normal. There is no distension. Palpations: Abdomen is soft. There is no mass. Tenderness: There is no abdominal tenderness. Musculoskeletal: General: Normal range of motion. Cervical back: Normal range of motion and neck supple. Right lower leg: No edema. Left lower leg: Edema present. Skin: General: Skin is warm and dry. Capillary Refill: Capillary refill takes 2 to 3 seconds. Findings: No rash. Neurological: General: No focal deficit present. Mental Status: She is alert and oriented to person, place, and time. Psychiatric: Mood and Affect: Mood normal. Behavior: Behavior normal. Thought Content: Thought content normal. Judgment: Judgment normal. ASSESSMENT AND PLAN: No follow-ups on file. Problem List Items Addressed This Visit Obesity (BMI 30-39.9) Immune thrombocytopenic purpura (CMS/HCC) Fu as per Hem/onc Thyroid nodule (CMS/HCC) - Primary Biopsy resolved, bethesda-nondiagnostic, rare benign thyroid follicular cells Coronary artery disease involving stockbridge coronary artery of stockbridge heart (CMS/HCC) No acute chest pain See ECHO results Has stress test next week Cont b clarke Pre-diabetes Limit carbs/ sugary foods/drinks Will hold on meds at this time Monitor A1c in 3 months Diarrhea No fever, blood or abd pain It is intermittent Will monitor at this time Associated Problem(s): Immune thrombocytopenic purpura (CMS/HCC) Fu as per Hem/onc documented in this encounter [facility] 04-18-2024 Nurse Note Patient Identification confirmed: yes. Injection given and documented on MAR per provider order. Joanne Alvarez MA [facility] 04-18-2024 Nurse Note Patient Identification confirmed: yes. Injection given and documented on MAR per provider order. Joanne Alvarez MA documented in this encounter [facility] 04-18-2024 Instructions Emani Brizuela - 04/18/2024 11:40 AM EDT B12 shot today and q 6 weeks Continue Tavalisse 100 mg BID RTC in 6 weeks Labs same day documented in this encounter [facility] 04-18-2024 History of Present illness Narrative NAME: Andrei Fish CLINIC NO.: [id number] DATE OF SERVICE: April 18, 2024 ([facility]) Some elements in this clinic note that are critical to medical decision making have been carefully reviewed and included from a prior clinic note dated: March 05, 2024 ([facility]) Additional Clinicians involved in Andrei [...] 2018 - Rituxan X 4 Updated Visit, April 18, 2024: Andrei returns for a follow up. Her anemia has improved since February, platelet count is within normal ranges. Will continue her current treatment regimen. She is following with other providers for leg pain, endorses she feels the same as when she previously had an infected wound. Workup so far has been unrevealing. Updated Visit, March 05, 2024: Andrei returns today for a follow up. Platelets are stable, she is more anemic today. Will give B12 injection today. Her eardrum repair was successful. She complains of continued weakness in her legs. 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 She states that [...] 08/29/2022 and then a follow-up with her ecotherapist on 09/07/2022. Overall, she is doing well [...] they are slightly increased. Got back from [place] and saw her sisters and had a [...] had a consultation with nephrology, Dr. Gilson Arriola. Dr. Arriola increased her losartan to 50 mg daily. [...] why she was going to see a ecotherapist for her blood pressure. Patient also has [...] PERFORMANCE STATUS: 0 PHYSICAL EXAMINATION: Vitals: BP 136/81 Pulse 74 Temp (Src) 97.6 (Temporal) Resp 16 Ht 5' 2.52 (1.59m) Wt 193 lb (87.5kg) SpO2 97% BMI 34.72 kg/(m^2). Body surface area is 1.96 meters [...] Vancomycin Unknown Burning sensation Diphtheria,Pertussi* Rash MEDICATIONS: fostamatinib (TAVALISSE) 100 mg tablet Take 1 tablet by mouth two times a day. methocarbamol (ROBAXIN) 750 mg tablet Take 750 mg by mouth three times a day. ondansetron orally disintegrating (ZOFRAN ODT) 4 mg disintegrating tablet Take 4 mg by mouth every 8 hours as needed for nausea/vomiting. pilocarpine (SALAGEN) 5 mg tablet Take 1 [...] tablet PLEASE SEE ATTACHED FOR DETAILED DIRECTIONS spironolactone (ALDACTONE) 25 mg tablet Take 25 mg by mouth once daily. benzonatate (TESSALON PERLE) 100 mg capsule TAKE 1 CAPSULE BY MOUTH EVERY 6 HOURS NEEDED FOR COUGH. cholecalciferol, vitamin D3, (VITAMIN D3 ORAL) Take by mouth. metoprolol succinate ER (TOPROL XL) 25 mg 24 hr tablet Take 12.5 mg by mouth once daily. traMADol (ULTRAM) 50 mg tablet Take 50 mg by mouth every 6 hours as needed for pain. oxyCODONE-acetaminophen (PERCOCET) 5-325 mg tablet Take 1 tablet by mouth every 6 hours as needed for pain. LABORATORY VALUES: WBC (k/uL) Date Value 04/18/2024 5.62 RBC (m/uL) Date Value 04/18/2024 3.40 (L) Hemoglobin (g/dL) Date Value 04/18/2024 10.7 (L) Hematocrit (%) Date Value 04/18/2024 33.3 (L) MCV (fL) Date Value 04/18/2024 97.9 MCH (pg) Date Value 04/18/2024 31.5 MCHC (g/dL) Date Value 04/18/2024 32.1 RDW-CV (%) Date Value 04/18/2024 14.9 Platelet Count (k/uL) Date Value 04/18/2024 174 MPV (fL) Date Value 04/18/2024 9.7 Glucose (mg/dL) Date Value 04/18/2024 103 (H) BUN (mg/dL) Date Value 04/18/2024 30 (H) Creatinine (mg/dL) Date Value 04/18/2024 1.18 (H) Sodium (mmol/L) Date Value 04/18/2024 142 Potassium (mmol/L) Date Value 04/18/2024 4.9 Chloride (mmol/L) Date Value 04/18/2024 101 CO2 (mmol/L) Date Value 04/18/2024 24 Protein, Total (g/dL) Date Value 04/18/2024 7.2 Albumin (g/dL) Date Value 04/18/2024 3.7 (L) Calcium, Total (mg/dL) Date Value 04/18/2024 9.4 Alkaline Phosphatase (U/L) Date Value 04/18/2024 77 Bilirubin, Total (mg/dL) Date Value 04/18/2024 0.4 AST (U/L) Date Value 04/18/2024 22 ALT (U/L) Date Value 04/18/2024 13 Cholesterol, Total (mg/dL) Date Value 03/30/2017 171 Triglyceride (mg/dL) Date Value 03/30/2017 118 DIAGNOSIS: (R73.9) Hyperglycemia (primary encounter diagnosis) Plan: HEMOGLOBIN A1C, COMPLETE BLOOD COUNT AND DIFFERENTIAL, COMPREHENSIVE METABOLIC PANEL, IRON AND TIBC, FERRITIN, VITAMIN B12, FOLATE, SERUM (D69.3) Chronic ITP (idiopathic thrombocytopenia) (HCC) Plan: COMPLETE BLOOD COUNT AND DIFFERENTIAL, COMPREHENSIVE METABOLIC PANEL, IRON AND TIBC, FERRITIN, VITAMIN B12, FOLATE, SERUM (D53.1) 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 deficiency Plan: COMPLETE BLOOD COUNT AND DIFFERENTIAL, COMPREHENSIVE METABOLIC PANEL, IRON AND TIBC, FERRITIN, VITAMIN B12, FOLATE, SERUM (G47.33) Obstructive sleep apnea syndrome Plan: COMPLETE BLOOD COUNT AND DIFFERENTIAL, COMPREHENSIVE METABOLIC PANEL, IRON AND TIBC, FERRITIN, VITAMIN B12, FOLATE, SERUM PAST MEDICAL HISTORY Diagnosis Date Lupus (HCC) [...] which included preparing to see the patient, [id number] patient care, completing clinical documentation, obtaining and/or reviewing separately obtained history, performing a medically appropriate examination, counseling and educating the patient/family/caregiver, ordering medications, tests, or procedures, communicating with other HCPs (not separately reported), independently interpreting results (not separately reported), communicating results to the patient/family/caregiver, and care coordination (not separately reported). Rinku Ramsey MD, CPE [facility] Provided at: [place], [place] Scribe Attestation: This note was scribed by Emani Brizuela on April 18, 2024 under the direction and supervision of Dr. Rinku Ramsey. I attest that all of the information documented is correct to the best of my knowledge. Provider Attestation: I, Rinku Ramsey MD, attest that all information documented by the above scribe is correct, and was supervised by me and under my direction. CC: Dr. Atif Graf documented in this encounter [facility] 04-18-2024 Note [facility] 04-10-2024 Telephone encounter Note pt called about her metoprolol being on hold at her pharmacy, she just took her last (1/2 pill) today. pt was asking if she is suppose to hold off on this medication? [facility] 04-10-2024 Miscellaneous Notes pt called about her metoprolol being on hold at her pharmacy, she just took her last (1/2 pill) today. pt was asking if she is suppose to hold off on this medication? documented in this encounter [facility] 04-09-2024 Telephone encounter Note No further instructions - you are right on. [facility] 04-09-2024 Miscellaneous Notes No further instructions - you are right on. Pt DIFFUSION FURNACE OPERATOR Stephanie called to inquire if there are any special instructions/ recommendations for schedule thyroid fine needle bx at [facility]. 03/05/24 platelet result 144. Encouraged to ask radiology dept if they have any requirements for platelet number. Also recommend recheck CBC prior to verify no drastic changes, and standard bleeding precautions following, should platelets remain at a stable number. She will call with any further needs or concerns once she discusses with radiology team. Loulou: Any further recommendations? Desirae Pimentel RN documented in this encounter [facility] 04-09-2024 History of Present illness Narrative [...] disease) States medication was given too fast. Naesyvg-Ddrpgw-Etgil Pertussis Rash HOME MEDICATIONS: Current Outpatient Medications [...] Normal TIMA on 03/01/24 for vascular flow [place] Pt notes occ posterior knee pain. Not [...] requiring urgent evaluation. documented in this encounter [facility] 04-09-2024 Telephone encounter Note Pt DIFFUSION FURNACE OPERATOR Stephanie called to inquire if there are any special instructions/ recommendations for schedule thyroid fine needle bx at [facility]. 03/05/24 platelet result 144. Encouraged to ask radiology dept if they have any requirements for platelet number. Also recommend recheck CBC prior to verify no drastic changes, and standard bleeding precautions following, should platelets remain at a stable number. She will call with any further needs or concerns once she discusses with radiology team. Loulou: Any further recommendations? Desirae Pimentel RN [facility] 04-05-2024 Telephone encounter Note Printed and signed by Loulou. Faxed to [phone], as requested. Desirae Pimentel RN [facility] 04-05-2024 Miscellaneous Notes Printed and signed by Loulou. Faxed to [phone], as requested. Desirae Pimentel, RN Please send this to Dr Ramsey 04/03/24. This is set to print. Emiliano Harden, PharmD, BCOP documented in this encounter [facility] 04-04-2024 History of Present illness Narrative Associated Problem(s): Posterior left knee pain Will refer to ortho, I am unclear if this is deg related to trauma Other differentials: lumbar etiology , or PAD Associated Problem(s): Other chest pain Check stress test Associated Problem(s): Elevated glucose level Check A1c Family hx DM, Associated Problem(s): Disease of thyroid gland (CMS/HCC) Check labs, await thyroid US results Associated Problem(s): Coronary artery disease involving stockbridge coronary artery of stockbridge heart (CMS/HCC) Reviewed ECHO Will order stress test Associated Problem(s): Essential hypertension (CMS/HCC) Stable, no med dose chagnes [facility] [phone] Cardiology- Dr west Pt had a pos covid test 03/12, she states she has loss her sense of smell and taste, she feels like her tongue is bigger than it actually is. Pt is still having weakness behind left knee- no pain but it does make her feel dizzy and nauseous. Images from the original note were not included. Andrei Fish is a 73 y.o. female presents with chief complaint of No chief complaint on file. HPI: Here for fu: Last visit chest pain, started her on b clarke and checked ECHO see report for specifics. Is tolerating b clarke, less chest pain, less freq/less intense, not associated with activity or eating. Not daily pain Also looking at past labs has elevation in blood sugars: no diabetes dx per self, +family hx DM (siblings), no freq thirst, does have freq urination (takes water pill). No NT in hands or feet, no new onset of fatigue. Left leg weakness: worse with activity, weakens behind the knee. No low back pain, no cauda equina noted either, +swelling legs not worse not better. Had thyroid US yesterday, no results back as of yet. Does report that she did take thyroid meds in the past, does not know why she stopped SUBJECTIVE: MEDICATIONS: Current Outpatient Medications Medication Instructions alendronate (FOSAMAX) 70 mg, Oral, Every 7 days, Take in the morning with a full glass of water, on an empty stomach, and do not take anything else by mouth or lie down for the next 30 min. ergocalciferol (VITAMIN D2) 50,000 Units, Oral, Weekly Fostamatinib Disodium 100 mg, Oral, 2 times daily hydroCHLOROthiazide (HYDRODIURIL) 25 mg, Oral, Daily losartan (COZAAR) 50 mg, Oral, 2 times daily methocarbamol (ROBAXIN) 750 mg, Oral, 3 times daily metoprolol succinate XL (TOPROL-XL) 12.5 mg, Oral, Daily, Do not crush or chew. ondansetron ODT (ZOFRAN-ODT) 4 mg, Oral, Every 8 hours PRN pilocarpine (Salagen) 5 MG tablet 1 tablet, Oral, 3 times daily spironolactone (ALDACTONE) 25 mg, Oral, Daily RT ALLERGIES: Allergies Allergen Reactions Vancomycin Other States had burning sensation t/o entire body. (Infectious disease) States medication was given too fast. Hgrjdgw-Rmkshq-Ijutt Pertussis Rash REVIEW OF SYMPTOMS: Review of Systems Constitutional: Negative for appetite change, chills and fever. HENT: Negative for congestion, ear pain and sore throat. Eyes: Negative for pain, discharge, redness and visual disturbance. Respiratory: Negative for cough, shortness of breath and wheezing. Cardiovascular: Positive for chest pain and leg swelling. Negative for palpitations. Gastrointestinal: Negative for abdominal pain, blood in stool, constipation, diarrhea, nausea and vomiting. Genitourinary: Negative for difficulty urinating, dysuria and frequency. Musculoskeletal: Positive for arthralgias. Negative for back pain, joint swelling and myalgias. Skin: [...] in her mother. OBJECTIVE: Visit Vitals BP 112/80 (BP Location: Left arm, Patient Position: Sitting, BP Cuff Size: Adult long) Pulse 72 Temp 98.3 F (Temporal) Resp 19 Ht 5' 3 Wt 184 lb 9.6 oz LMP (LMP Unknown) SpO2 98% BMI 32.70 kg/m OB Status Postmenopausal Smoking Status Every Day BSA 1.93 m Physical Exam Vitals and nursing note reviewed. [...] is normal. Breath sounds: Normal breath sounds. Abdominal: General: Bowel sounds are normal. There is no distension. Palpations: Abdomen is soft. There is no mass. Tenderness: There is no abdominal tenderness. Musculoskeletal: Cervical back: Normal range of motion and neck supple. Comments: Lumbar near full ROM, -SLR X2, DTR's 1+ left patellar, 2+ right patellar, 1-2+ bilat achilles MMT 5/5 bilat LE, no point tenderness to lumbar region LLE: scars and deformity from prior traum Knee: neg mc mark, no laxity, neg valgas/varus stress Skin: General: Skin is warm and dry. Capillary Refill: Capillary refill takes 2 to 3 seconds. Findings: No rash. Neurological: General: No focal deficit present. Mental Status: She is alert and oriented to person, place, and time. Psychiatric: Mood and Affect: Mood normal. Behavior: Behavior normal. Thought Content: Thought content normal. Judgment: Judgment normal. ASSESSMENT AND PLAN: No follow-ups on file. Problem List Items Addressed This Visit Disease of thyroid gland (CMS/HCC) Check labs, await thyroid US results Relevant Orders TSH T4, free Essential hypertension (CMS/HCC) Stable, no med dose chagnes Relevant Orders Microalbumin / creatinine, urine ratio Urinalysis with reflex microscopic (clean catch) STRESS NUCLEAR MEDICINE [place]ISCAN Obesity (BMI 30-39.9) Coronary artery disease involving stockbridge coronary artery of stockbridge heart (CMS/HCC) Reviewed ECHO Will order stress test Relevant Orders STRESS NUCLEAR MEDICINE [place] Elevated glucose level - Primary Check A1c Family hx DM, Relevant Orders Hemoglobin A1c Encounter for screening mammogram for malignant neoplasm of breast Relevant Orders Bilateral screening mammogram Other chest pain Check stress test Relevant Orders STRESS NUCLEAR MEDICINE [place]ISCAN Posterior left knee pain Will refer to ortho, I am unclear if this is deg related to trauma Other differentials: lumbar etiology , or PAD Relevant Orders Ambulatory referral to Orthopaedic Surgery documented in this encounter [facility] 04-02-2024 Telephone encounter Note Please send this to Dr Ramsey 04/03/24. This is set to print. Emiliano Harden, PharmD, BCOP [facility] Work Phone: 03-27-2024 History of Present illness Narrative Associated Problem(s): Obstructive sleep apnea syndrome Tested in the past, never treated Associated Problem(s): PAH (pulmonary artery hypertension) (CMS/[facility]) Per ECHO Elevated pressures, has hx of ADALBERTO, not treated documented in this encounter [facility] 03-05-2024 Nurse Note Patient Identification confirmed: yes. Injection given and documented on MAR per provider order. Joanne Alvarez MA [facility] 03-05-2024 Nurse Note Patient Identification confirmed: yes. Injection given and documented on MAR per provider order. Joanne Alvarez MA documented in this encounter [facility] 03-05-2024 Emani Patel - 03/05/2024 11:20 AM EDT B12 shot today and q 6 weeks Continue Tavalisse 100 mg BID RTC in 6 weeks Labs same day documented in this encounter [facility] 03-05-2024 History of Present illness Narrative Images from the original note were not included. 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 She states that [...] 08/29/2022 and then a follow-up with her ecotherapist on 09/07/2022. Overall, she is doing well [...] they are slightly increased. Got back from [place] and saw her sisters and had a [...] had a consultation with nephrology, Dr. Gilson Arriola. Dr. Arriola increased her losartan to 50 mg daily. [...] why she was going to see a ecotherapist for her blood pressure. Patient also has [...] which included preparing to see the patient, [id number] patient care, completing clinical documentation, obtaining and/or reviewing separately obtained history, performing a medically appropriate examination, counseling and educating the patient/family/caregiver, ordering medications, tests, or procedures, communicating with other HCPs (not separately reported), independently interpreting results (not separately reported), communicating results to the patient/family/caregiver, and care coordination (not separately reported). Rinku Ramsey MD, CPE [facility] Provided at: [place], [place] Scribe Attestation: This note was scribed [...] Dr. Atif Graf documented in this encounter [facility] 03-05-2024 Note [facility] 03-04-2024 History of Present illness Narrative Associated Problem(s): Thyroid nodule (CMS/HCC) Thyroid US Associated Problem(s): Essential hypertension (CMS/HCC) stable Associated Problem(s): Coronary artery disease involving stockbridge coronary artery of stockbridge heart (CMS/HCC) Strong family hx of CAD Vague c.o pressure chest from time to time Will order ECHO Add Toprol XL 12.5mg daily Await her to let me know which gate services supervisor referral Associated Problem(s): Calcification of aortic valve Per CT chest, will get ECHO Images from the original note were not included. Andrei Fish is a 73 y.o. female presents with chief complaint of No chief complaint on file. HPI: Here for an ER fu appt. Specifically we reviewed the abnormals on CT scan: She does get chest heaviness from time to time, no dyspnea, diaphoresis with this. It can happen with or without activity: we have ordered ECHO, she is going to ask her Oncology doc for a person who does cardiology through [facility] [place] to [place] will call me tomorrow Thyroid nodule: incidental finding no pain SUBJECTIVE: MEDICATIONS: Current Outpatient Medications Medication Instructions alendronate (FOSAMAX) 70 mg, Oral, Every 7 days, Take in the morning with a full glass of water, on an empty stomach, and do not take anything else by mouth or lie down for the next 30 min. ergocalciferol (VITAMIN D2) 50,000 Units, Oral, Weekly Fostamatinib Disodium 100 mg, Oral, 2 times daily hydroCHLOROthiazide (HYDRODIURIL) 25 mg, Oral, Daily losartan (COZAAR) 50 mg, Oral, 2 times daily metoprolol succinate XL (TOPROL-XL) 12.5 mg, Oral, Daily, Do not crush or chew. pilocarpine (Salagen) 5 MG tablet 1 tablet, Oral, 3 times daily spironolactone (ALDACTONE) 25 mg, Oral, Daily RT ALLERGIES: Allergies Allergen Reactions Vancomycin Other States had burning sensation t/o entire body. (Infectious disease) States medication was given too fast. Vbtlzen-Ahgieo-Ykvvu Pertussis Rash REVIEW OF SYMPTOMS: Review of Systems Constitutional: Positive for fatigue. Negative for appetite change, chills and fever. HENT: Negative for congestion, ear pain and sore throat. Eyes: Negative for pain, discharge, redness and visual disturbance. Respiratory: Negative for cough, shortness of breath and wheezing. Cardiovascular: Positive for chest pain. Negative for palpitations and leg swelling. Gastrointestinal: Negative for abdominal pain, blood in stool, constipation, diarrhea, nausea and vomiting. Genitourinary: Negative for difficulty urinating, dysuria and frequency. Musculoskeletal: Positive for arthralgias and back pain. Negative for joint swelling and myalgias. Skin: Negative for [...] in her mother. OBJECTIVE: Visit Vitals BP 138/64 Pulse 80 Temp 97.2 F (Temporal) Wt 193 lb LMP (LMP Unknown) SpO2 98% BMI 34.19 kg/m OB Status Postmenopausal Smoking Status Every Day BSA 1.97 m Physical Exam Vitals and nursing note reviewed. Constitutional: General: She is not in acute distress. Appearance: Normal appearance. HENT: Head: Normocephalic and atraumatic. Right Ear: External ear normal. Left Ear: External ear normal. Nose: Nose normal. Mouth/Throat: Mouth: Mucous membranes are moist. Eyes: Extraocular Movements: Extraocular movements intact. Conjunctiva/sclera: Conjunctivae normal. Neck: Vascular: No carotid bruit. Cardiovascular: Rate and Rhythm: Normal rate and regular rhythm. Pulses: Normal pulses. Heart sounds: Normal heart sounds. Pulmonary: Effort: Pulmonary effort is normal. Breath sounds: Normal breath sounds. No wheezing or rales. Abdominal: General: Bowel sounds are normal. There is no distension. Palpations: Abdomen is soft. There is no mass. Tenderness: There is no abdominal tenderness. Musculoskeletal: General: Normal range of motion. Cervical back: Normal range of motion and neck supple. Right lower leg: No edema. Left lower leg: No edema. Lymphadenopathy: Cervical: No cervical adenopathy. Skin: General: Skin is warm and dry. Capillary Refill: Capillary refill takes 2 to 3 seconds. Findings: No rash. Neurological: General: No focal deficit present. Mental Status: She is alert and oriented to person, place, and time. Psychiatric: Mood and Affect: Mood normal. Behavior: Behavior normal. Thought Content: Thought content normal. Judgment: Judgment normal. ASSESSMENT AND PLAN: No follow-ups on file. Problem List Items Addressed This Visit Essential hypertension (CMS/HCC) stable Thyroid nodule (CMS/HCC) Thyroid US Coronary artery disease involving stockbridge coronary artery of stockbridge heart (CMS/HCC) - Primary Strong family hx of CAD Vague c.o pressure chest from time to time Will order ECHO Add Toprol XL 12.5mg daily Await her to let me know which gate services supervisor referral Relevant Medications metoprolol succinate XL (Toprol-XL) 25 MG 24 hr tablet Calcification of aortic valve Per CT chest, will get ECHO documented in this encounter [facility] 02-02-2024 Instructions Emani Carr - 02/02/2024 1:48 PM EDT Continue Tavalisse 100 mg BID RTC in 6 weeks for labs and follow up documented in this encounter [facility] 02-02-2024 History of Present illness Narrative Images from the original note were not included. NAME: Andrei Fish [facility] NO[facility] [id number] DATE OF SERVICE: February 02, 2024 ([facility]) Some elements in this clinic note that are critical to medical decision making have been carefully reviewed and included from a prior clinic note dated: November 24, 2023 (Joon) Additional Clinicians involved in [place] [...] having a mammogram and dexa scan at [facility] per her PCP. She states that [...] 08/29/2022 and then a follow-up with her ecotherapist on 09/07/2022. Overall, she is doing well [...] they are slightly increased. Got back from [place] and saw her sisters and had a [...] had a consultation with nephrology, Dr. Gilson Arriola. Dr. Arriola increased her losartan to 50 mg daily. [...] why she was going to see a ecotherapist for her blood pressure. Patient also has [...] if it persists. She is requested Tessalon Thiago again for her chronic intermittent cough. [...] which included preparing to see the patient, [id number] patient care, completing clinical documentation, obtaining and/or reviewing separately obtained history, performing a medically appropriate examination, counseling and educating the patient/family/caregiver, ordering medications, tests, or procedures, communicating with other HCPs (not separately reported), independently interpreting results (not separately reported), communicating results to the patient/family/caregiver, and care coordination (not separately reported). Rinku Ramsey MD, CPE [facility] Provided at: [place], [place] Scribe Attestation: This note was scribed [...] Dr. Atif Graf documented in this encounter [facility] 02-02-2024 Note [facility] 01-25-2024 Telephone encounter Note Loulou: please sign pended refill, if agreeable Desirae Pimentel RN [facility] 01-25-2024 Miscellaneous Notes Loulou: please sign pended refill, if agreeable Desirae Pimentel RN documented in this encounter [facility] 01-02-2024 History of Present illness Narrative History Of Present Illness: Andrei Fish is a 73 y.o. female with a history of left TM perforation s/p left-sided tympanoplasty with OCR in December [address] Augie Tyler at [facility] [place]. She was told in 2016 that she would need revision surgery as the prosthesis has broken down, but she was unable to do so. She subsequently saw Dr. Mar Mayo in 2023 and was referred to Dr. Graf for further management. 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 She presents today for a postoperative visit. She has been doing very well; she denies any ear pain postoperatively. She is using floxin drops. Recall from 11/14/23: She notes that in the past year, [...] thrombocytopenia, osteoporosis Past Medical History: She has a past medical history of Hypertension and Osteoporosis. Surgical History: She has a past surgical history that includes Appendectomy; Cholecystectomy; Hysterectomy; and Colonoscopy. Social History: She reports that she has been smoking cigarettes. She has a 11.3 pack-year smoking history. She has never used smokeless tobacco. She reports that she does not drink alcohol and does not use drugs. Family History: No family history on file. Medications: Current Outpatient Medications Medication Instructions alendronate (FOSAMAX) 70 mg, Every 7 days ciprofloxacin-dexamethasone (CiproDEX) otic suspension 4 drops, otic (ear), 2 times daily, Start your ear drops on 12/18 and continue until follow up ciprofloxacin-dexamethasone (CiproDEX) otic suspension 4 drops, otic (ear), 2 times daily ergocalciferol (Vitamin D-2) 1.25 MG (84308 UT) capsule 1 capsule, oral, Weekly fostamatinib (TAVALISSE) 100 mg, oral, 2 times daily hydroCHLOROthiazide (HYDRODIURIL) 25 mg, oral, Daily losartan (COZAAR) 50 mg, oral pilocarpine (SALAGEN) 5 mg, oral, 3 times daily spironolactone (ALDACTONE) 25 mg, oral, Daily RT Allergies: Vancomycin and Diphtheria,pertussis (acellular),tetanus vaccine Review of Systems: A comprehensive 10-point review [...] synkinesis or facial tic. Ears Otoscopic examination: Right ear: normal ear canal and tympanic membrane. Left ear: Postauricular incision c/d/I, well-healed. Packing was removed from the ear canal, revealing intact neotympanum and well-healing canal. Ramachandran lateralizes to left. Nose: Dorsum symmetric with no visible or palpable deformities. Oral Cavity/Mouth Lips, teeth, and gums: Normal lips, gums, and dentition. Oropharynx: Mucosa moist, no lesions. Neck: Symmetrical, trachea midline. No masses visible. Neurological/Psychiatric Cranial Nerve Examination: II - XII grossly intact. Orientation to person, place, and time: Normal. Mood and affect: Normal. Skin: Normal without rashes or lesions. Pulmonary Respiratory effort: Chest expands symmetrically. Extremities: Appearance of extremities: Normal. Gait normal. Last Recorded Vitals: There were no vitals taken for this visit. Relevant Results: I personally reviewed the CT IAC from 11/14/23 which demonstrated a left-sided cholesteatoma limited to the area of the scutum and to the dome of the [facility]. There is some destruction of the posterior superior bony EAC. Assessment/Plan 72 y.o. female with a history of left TM perforation s/p left-sided tympanoplasty with OCR in December [address] Augie Tyler at [facility] [place]. She was told in 2016 that she would need revision surgery as the prosthesis has broken down, but she was unable to do so. She subequently saw Dr. Mar Mayo in 2023 and was referred to Dr. Graf for further management. She underwent left tympanomastoidectomy and removal of cholesteatoma on 12/18/[address] Graf. She presents for her first postoperative visit today. Packing was removed from the ear canal, and she is healing well. - Continue drops for 1 more week and dry ear precautions. - Return in 1mo for repeat check with Dr. Graf. Will discuss timing of second-look at that time (patient expressed preference for Spring 2024 or later). documented in this encounter [facility] Work Phone: 12-18-2023 Miscellaneous Notes 1247: Phase 1 care begins 1313: Pt family updated via message 1405: 975 tylenol given per emr order 1420: Phase 2 care begins documented in this encounter [facility] Work Phone: 12-18-2023 Note Formatting of this n ote might be different from the original. 1247: Phase 1 care begins 1313: Pt family updated via message 1405: 975 tylenol given per emr order 1420: Phase 2 care begins [facility] 12-18-2023 Hospital Discharge instructions Fly [...] for your care. documented in this encounter [facility] Work Phone: 12-18-2023 History and [...] cartilage graft, possible OCR Fly Lindo MD [facility] Work Phone: 12-18-2023 History and physical [...] Fly Lindo MD documented in this encounter [facility] Work Phone: 12-15-2023 Nurse Note Patient identified by 2 identifiers. EKG performed as ordered. Joanne Alvarez MA [facility] 12-15-2023 Nurse Note Patient identified by 2 identifiers. EKG performed as ordered. Joanne Alvarez MA documented in this encounter [facility] 11-28-2023 Telephone encounter Note Called thanks [facility] 11-28-2023 Miscellaneous Notes Called thanks Dr Graf ( ENT) is requesting to speak w/ you regarding Odes. Please call her @ [phone]. Thanks, Emilia Robins RN documented in this encounter [facility] 11-28-[address] Graf ( ENT) is requesting to speak w/ you regarding Odes. Please call her @ [phone]. Thanks, Emilia Robins RN [facility] Work Phone: 11-24-2023 Instructions Rinku Ramsey MD - 11/24/2023 11:28 AM EDT Continue Tavalisse 100 mg BID Return in 6 weeks for labs and follow up documented in this encounter [facility] 11-24-2023 History of Present illness Narrative Images from the original note were not included. NAME: Andrei Fish CLINIC NO.: [id number] DATE OF SERVICE: November 24, 2023 (Joon) [...] having a mammogram and dexa scan at [facility] per her PCP. She states that [...] 08/29/2022 and then a follow-up with her ecotherapist on 09/07/2022. Overall, she is doing well [...] they are slightly increased. Got back from [place] and saw her sisters and had a [...] had a consultation with nephrology, Dr. Gilson Arriola. Dr. Arriola increased her losartan to 50 mg daily. [...] why she was going to see a ecotherapist for her blood pressure. Patient also has [...] which included preparing to see the patient, [id number] patient care, completing clinical documentation, obtaining and/or reviewing separately obtained history, performing a medically appropriate examination, counseling and educating the patient/family/caregiver, ordering medications, tests, or procedures, communicating with other HCPs (not separately reported), independently interpreting results (not separately reported), communicating results to the patient/family/caregiver, and care coordination (not separately reported). Rinku Ramsey MD, CPE [facility]ology [facility] Oncology Services Provided at: [place], [place] CC: Dr. Chadd Graf documented in this encounter [facility] 11-14-2023 History of Present illness Narrative History Of Present Illness: Andrei Fish is a 72 y.o. female whom presents to me as a new patient for left-sided TM perforation, referred here today by Dr. Mar Mayo. She is status post left-sided tympanoplasty with OCR in December of [address] Augie Tyler at [facility] [place]. In 2017, was told by Dr. Tyler [...] of [address] Augie Tyler at [facility] [place]. Patient's dizziness also is likely d/t tympanic perforation. Patient will require L sided tympanomastoidectomy canal wall up with ossiculoplasty, cartilage graft. Discussed risks and benefits with patient. Tamela Garsia, MS4 I have reviewed the documentation as scribed by Tamela Garsia and agree with the notes. Susanna Graf MD documented in this encounter [facility] Work Phone: 11-14-2023 Instructions Nereida Stewart - 11/14/2023 1:45 PM EDT Welcome to Dr. Graf's clinic. We are here to assist you through your ENT care at [facility]. Dr. Graf is an Ear surgeon. This means that she specializes in taking care of patients with complex ear problems. Dr. Graf's office number is [phone]. While you may see her at a satellite office, she has a team committed to help meet your healthcare needs at [facility]'s [facility]. This number is the most direct way to communicate with the office. Jasmyne is Dr. Graf's membership secretary and she answers the office phone [...] may include dieticians, social workers, speech therapists, pressing machine operator, neurologist, and physical therapist. Dr. Graf will provide these referrals as needed. Please let her know if you would like to request a specific referral. For your convenience, Dr. Graf sees patients at several [facility] locations including [facility] and [facility] at the main [place] of [facility]. While we try to make your appointments [...] have to reschedule. documented in this encounter [facility] Work Phone: 10-13-2023 History of Present illness Narrative Images from the original note were not included. NAME: Andrei Fish NO.: [id number] DATE OF SERVICE: October 13 2023 (Mary) [...] having a mammogram and dexa scan at [facility] per her PCP. She states that [...] 08/29/2022 and then a follow-up with her ecotherapist on 09/07/2022. Overall, she is doing well [...] they are slightly increased. Got back from [place] and saw her sisters and had a [...] had a consultation with nephrology, Dr. Gilson Arriola. Dr. Arriola increased her losartan to 50 mg daily. [...] why she was going to see a ecotherapist for her blood pressure. Patient also has [...] Vitals: BP 152/84 Pulse 68 Temp (Src) 97.6 (Temporal) Resp 18 Ht 5' 2.52 (1.59m) Wt 191 lb 12.8 oz (87.0kg) SpO2 98% BMI 34.50 kg/(m^2). Body surface area is 1.96 meters squared. General: Alert and oriented, no distress, pleasant and cooperative. Heart: Regular, normal S1 and S2, no murmurs, rubs, or gallops Lungs: Clear to auscultation bilaterally Abdomen: Benign Extremities: Feet/ankles without edema, posterior tibial pulses full and symmetrical ALLERGIES: ALLERGIES Allergen Reactions Tetnus [Tetanus Vac* Unknown Vancomycin Unknown Burning sensation MEDICATIONS: losartan (COZAAR) 25 mg tablet take 2 [...] D3, (VITAMIN D3 ORAL) Take by mouth. pilocarpine (SALAGEN) 5 mg tablet Take 1 tablet by mouth three times a day. benzonatate (TESSALON PERLE) 100 mg capsule TAKE 1 CAPSULE BY MOUTH EVERY 6 HOURS NEEDED FOR COUGH. LABORATORY VALUES: WBC (k/uL) Date Value 10/13/2023 5.76 RBC (m/uL) Date Value 10/13/2023 3.49 (L) Hemoglobin (g/dL) Date Value 10/13/2023 11.0 (L) Hematocrit (%) Date Value 10/13/2023 34.5 (L) MCV (fL) Date Value 10/13/2023 98.9 MCH (pg) Date Value 10/13/2023 31.5 MCHC (g/dL) Date Value 10/13/2023 31.9 RDW-CV (%) Date Value 10/13/2023 14.3 Platelet Count (k/uL) Date Value 10/13/2023 147 (L) MPV (fL) Date Value 10/13/2023 9.4 Glucose (mg/dL) Date Value 10/13/2023 120 (H) BUN (mg/dL) Date Value 10/13/2023 42 (H) Creatinine (mg/dL) Date Value 10/13/2023 1.47 (H) Sodium (mmol/L) Date Value 10/13/2023 139 Potassium (mmol/L) Date Value 10/13/2023 4.6 Chloride (mmol/L) Date Value 10/13/2023 106 (H) CO2 (mmol/L) Date Value 10/13/2023 24 Protein, Total (g/dL) Date Value 10/13/2023 7.9 Albumin (g/dL) Date Value 10/13/2023 4.1 Calcium, Total (mg/dL) Date Value 10/13/2023 10.2 Alkaline Phosphatase (U/L) Date Value 10/13/2023 65 Bilirubin, Total (mg/dL) Date Value 10/13/2023 0.4 AST (U/L) Date Value 10/13/2023 24 ALT (U/L) Date Value 10/13/2023 15 Cholesterol, Total (mg/dL) Date Value 03/30/2017 171 Triglyceride (mg/dL) Date Value 03/30/2017 118 DIAGNOSIS: (D69.3) Chronic ITP (idiopathic thrombocytopenia) (HCC) (primary encounter diagnosis) Plan: COMP METABOLIC PANEL, CBC + DIFF (N18.32) Stage 3b chronic kidney disease (HCC) (I15.9) Secondary hypertension PAST MEDICAL HISTORY Diagnosis Date Lupus (HCC) Thrombocytopenia (HCC) PAST SURGICAL HISTORY Procedure Laterality Date COLONSCOPY SCREENING HIGH RISK 07/25/2022 HYSTERECTOMY HX Social History Tobacco Use Smoking status: Light Smoker Types: Cigarettes Passive exposure: Past Smokeless tobacco: Never Vaping Use Vaping Use: Never used Substance Use Topics Alcohol use: No Drug use: No No family history on file. Ana Hernandez PA-C Hematology and Oncology Services Provided at: [place], [place] CC: Dr. Chadd Deluna documented in this encounter [facility] 09-04-2023 Miscellaneous Notes The following approved medication requests have been transmitted electronically. Requested Prescriptions Signed Prescriptions Disp Refills losartan (COZAAR) 25 mg tablet 180 tablet 3 Sig: take 2 tablets by mouth every day at bedtime Authorizing Provider: JAYDEN CONNELLY APRN.PATIENT CARE TECHNICIAN documented in this encounter [facility] 08-28-2023 Instructions Rinku Ramsey MD - 08/28/2023 2:54 PM EST Continue Tavalisse 100 mg twice daily. Follow up in 6 weeks with labs. documented in this encounter [facility] 08-28-2023 History of Present illness Narrative Images from the original note were not included. NAME: Abe Andrei CLINIC NO.: [id number] DATE OF SERVICE: August 28, 2023 ([facility]) Some elements in this clinic note [...] having a mammogram and dexa scan at [facility] per her PCP. She states that [...] 08/29/2022 and then a follow-up with her ecotherapist on 09/07/2022. Overall, she is doing well [...] they are slightly increased. Got back from [place] and saw her sisters and had a [...] had a consultation with nephrology, Dr. Gilson Arriola. Dr. Arriola increased her losartan to 50 mg daily. [...] why she was going to see a ecotherapist for her blood pressure. Patient also has [...] normal. Updated Visit, January 27, 2021: Andrei Fihs returns for scheduled follow-up. There has been [...] if it persists. She is requested Tesdengon Perlalicia again for her chronic intermittent cough. [...] which included preparing to see the patient, [id number] patient care, completing clinical documentation, performing a medically appropriate examination, counseling and educating the patient/family/caregiver, ordering medications, tests, or procedures, independently interpreting results (not separately reported), communicating results to the patient/family/caregiver, and care coordination (not separately reported). Rinku Ramsey MD, CPE Hematology and Oncology Services Provided at: [place], [place] Scribe Attestation: This note was scribed [...] Dr. Chadd Deluna documented in this encounter [facility] 08-23-2023 History of Present illness Narrative Subjective Patient ID: Andrei Fish is a 72 y.o. female who presents for Ear Problem (Left TM perf). Pt had an apparent left tympanoplasty and OCR in December 2015. Pt states she was told there would need to be revision surgery. 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 Tobacco dependence 06/28/2022 Dry mouth 01/05/2017 Compression syndrome, 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/2022 Abnormal weight loss 03/03/2016 Age-related osteoporosis without current pathological fracture ([facility]) 06/06/2023 Ruptured ear drum, left 06/06/2023 Leg pain, bilateral 06/06/2023 Left wrist pain 06/06/2023 Obesity (BMI 30-39.9) 06/06/2023 Claudication of both lower extremities ([facility]) 06/08/2023 PAD (peripheral artery disease) ([facility]) 06/08/2023 Resolved Ambulatory Problems Diagnosis Date Noted No Resolved Ambulatory Problems Past Medical History: Diagnosis Date Hypertension ([facility]) Past Surgical History: Procedure Laterality Date APPENDECTOMY BI MAMMO GUIDED LOCALIZATION BREAST LEFT Left 03/28/2017 BI MAMMO GUIDED LOCALIZATION BREAST LEFT 03/28/2017 BREAST BIOPSY Left BREAST LUMPECTOMY Left 07/2015 BREAST SURGERY CHOLECYSTECTOMY COLONOSCOPY 2008 EYE SURGERY FRACTURE SURGERY Left leg HYSTERECTOMY Allergies Allergen Reactions Vancomycin Other States had burning sensation t/o entire body. (Infectious disease) States medication was given too fast. 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 Onset of perforation was a few years ago Pt saw ENT in [place] that was going to repair the perforation [...] Ear: No seal documented in this encounter [facility] 06-28-2023 Evaluation note Encounter Date Diagnosis [...] Her CT scan results reviewed from the [place] [facility] which also showed bilateral renal cysts. [...] oral vitamin D 50,000 unit once weekly. [facility] Other 11-27-2023 History of Present illness Narrative* Ana Hernandez PA-C - 06/05/2023 8:47 AM EST Images from the original note were not included. NAME: Andrei Fish [facility] NO.: [id number] DATE OF SERVICE: June 05, 2023 (Mary) [...] having a mammogram and dexa scan at [facility] per her PCP. She states that [...] 08/29/2022 and then a follow-up with her ecotherapist on 09/07/2022. Overall, she is doing well [...] as they are slightlyincreased. Got back from [place] and saw her sisters and had a [...] had a consultation with nephrology, Dr. Gilson Arriola. Dr. Arriola increased her losartan to 50 mg daily. [...] why she was going to see a ecotherapist for her blood pressure. Patient also has [...] which included preparing to see the patient, [id number] patient care, completing clinical documentation, obtaining and/or reviewing separately obtained history, performing a medically appropriate examination, counseling and educating the pat ient/family/caregiver, ordering medications, tests, or procedures, independently interpreting results (not separately reported), communicating results to the patient/family/caregiver, and care coordination (not separately reported). Ana Hernandez PA-C CC: Dr. Chadd Deluna [facility] Miscellaneous Notes* Telephone Encounter - Krista Harden RPh - 05/01/2023 2:44 PM EDT Please Fax RX to [facility] @ [phone] Emiliano Harden PharmD, BCOP documented in [facility]10[facility] Instructions* Patient Instructions* Rinku Ramsey MD - 04/20/2023 10:47 AM EDT Continue Tavalisse 100 mg twice daily. Follow up in 6 weeks with labs. [facility] History of Present illness Narrative* Rinku Ramsey MD - 04/20/2023 10:30 AM EDT Images from the original note were not included. NAME: Andrei Fish [facility] NO.: [id number] DATE OF SERVICE: April 20, 2023 (J[place]) [...] 08/29/2022 and then a follow-up with her ecotherapist on 09/07/2022. Overall, she is doing well [...] as they are slightlyincreased. Got back from [place] and saw her sisters and had a [...] She had a consultation with nephrology, Dr. Gislon Arriola. Dr. Arriola increased her losartan to 50 mg daily. [...] why she was going to see a ecotherapist for her blood pressure. Patient also has [...] which included preparing to see the patient, [id number] patient care, completing clinical documentation, obtaining and/or reviewing separately obtained history, performing a medically appropriate examination, counseling and educating the pat ient/family/caregiver, ordering medications, tests, or procedures, independently interpreting results (not separately reported), communicating results to the patient/family/caregiver, and care coordination (not separately reported). Rinku Ramsey MD, CPE Hematology and Oncology Services Provided at: [place], [place] CC: Dr. Chadd Deluna documented in this [facility]10-[facility]23 Miscellaneous Notes* Telephone Encounter - Joanne Alvarez - 04/19/2023 4:02 PM EDT Patient has an appt on 04/20. Would you like labs? documented [facility] Evaluation note* Encounter Date Diagnosis Assessment Notes Treatment Notes Treatment Clinical Notes Mar, Complex renal cyst (ICD-10 - N28.1) [facility] Other 08-31-2023 Instructions* Patient Instructions* Rinku Ramsey MD - 03/09/2023 2:54 PM EDT Continue Tavalisse 100 mg twice daily. Follow up in 6 weeks with labs. documented in this encounter[facility]08-[facility] History of Present illness Narrative* Rinku Ramsey MD - 03/09/2023 2:50 PM EDT Images from the original note were not included. NAME: Andrei Fish [facility] NO.: [id number] DATE OF SERVICE: March 09, 2023 (Joon) [...] 08/29/2022 and then a follow-up with her ecotherapist on 09/07/2022. Overall, she is doing well [...] as they are slightlyincreased. Got back from [place] and saw her sisters and had a [...] had a consultation with nephrology, Dr. Gilson Arriola. Dr. Arriola increased her losartan to 50 mg daily. [...] her. Updated Visit, July 16, 2021: Andrei iFsh returns for follow-up. She remains on Tavalisse [...] why she was going to see a ecotherapist for her blood pressure. Patient also has [...] which included preparing to see the patient, [id number] patient care, completing clinical documentation, performing a medically appropriate examination, counseling and educating the patient/family/caregiver, ordering medications, tests, or p rocedures, and independently interpreting results (not separately reported). Rinku Ramsey MD, CPE Hematology and Oncology Services Provided at: [place], [place] CC: Dr. Chadd Deluna documented in this encounterSal[facility]07-20-[facility]23 Instructions* Patient Instructions* Rinku Ramsey MD - 01/26/2023 3:14 PM EDT Continue Tavalisse 100 mg twice daily. Follow up in 6 weeks with labs. documented in this encounterSal[facility]07-[facility]23 History of Present illness Narrative* Rinku Ramsey MD - 01/26/2023 3:10 PM EDT NAME: Andrei Fish CLINIC NO.: [id number] DATE OF SERVICE: January 26, 2023 (Joon) Some elements in this clinic note that are critical to medical decision making have been carefully reviewed and included from a prior clinic note dated: December 15, 2022 (Joon) Additional Clinicians involved in Andrei Miranda Fish's [...] 08/29/2022 and then a follow-up with her ecotherapist on 09/07/2022. Overall, she is doing well [...] as they are slightlyincreased. Got back from [place] and saw her sisters and had a [...] had a consultation with nephrology, Dr. Gilson Arriola. Dr. Arriola increased her losartan to 50 mg daily. [...] why she was going to see a ecotherapist for her blood pressure. Patient also has [...] which included preparing to see the patient, [id number] patient care, completing clinical documentation, performing a medically appropriate examination, counseling and educating the patient/family/caregiver, ordering medications, tests, or p rocedures, and independently interpreting results (not separately reported). Rinku Ramsey MD, CPE Hematology and Oncology Services Provided at: [place], [place] CC: Dr. Chadd Deluna documented in this encounterSal[facility]06-08-[facility]23 Instructions* Patient Instructions* Rinku Ramsey MD - 12/15/2022 2:39 PM EDT Continue Tavalisse 100 mg twice daily. Follow up in 6 weeks with labs. documented in this encounterSal[facility]06-[facility]23 History of Present illness Narrative* Rinku Ramsey MD - 12/15/2022 2:35 PM EDT Images from the original note were not included. NAME: Andrei Fish [facility] NO.: [id number] DATE OF SERVICE: December 15, 2022 (jaypennie) Some elements in this clinic note that [...] 08/29/2022 and then a follow-up with her ecotherapist on 09/07/2022. Overall, she is doing well [...] as they are slightlyincreased. Got back from [place] and saw her sisters and had a [...] had a consultation with nephrology, Dr. Gilson Arriola. Dr. Arriola increased her losartan to 50 mg daily. [...] therapy. Updated Visit, September 16, 2021: Andrei Fihs returns for follow-up. She remains [...] why she was going to see a ecotherapist for her blood pressure. Patient also has [...] stable. Updated Visit, June 11, 2021: Andrei Fsih returns for follow-up. She remains on tab [...] which included preparing to see the patient, [id number]-fv-[id number] patient care, completing clinical documentation, performing a medically appropriate examination, counseling and educating the patient/family/caregiver, ordering medications, tests, or p rocedures, and independently interpreting results (not separately reported). Rinku Ramsey MD, CPE Hematology and Oncology Services Provided at: [place], [place] CC: Dr. Chadd Deluna documented in this encounterSal[facility]04-20-2023 Instructions* Patient Instructions* Rinku Ramsey MD - 10/27/2022 3:37 PM EDT Continue Tavalisse 100 mg twice daily. (Actually takes 2 pills at the same time) Follow up in 6 weeks with labs. documented in this encounterSalem [facility]04-20-2023 History of Present illness Narrative* Rinku Ramsey MD - 10/27/2022 3:34 PM EDT Images from the original note were not included. NAME: Abe Andrei CLINIC NO.: [id number] DATE OF SERVICE: October 27, 2022 ([facility]) Some elements in this clinic note [...] 08/29/2022 and then a follow-up with her ecotherapist on 09/07/2022. Overall, she is doing well [...] as they are slightlyincreased. Got back from [place] and saw her sisters and had a [...] had a consultation with nephrology, Dr. Gilson Arriola. Dr. Arriola increased her losartan to 50 mg daily. [...] why she was going to see a ecotherapist for her blood pressure. Patient also has [...] which included preparing to see the patient, [id number]-[id number] patient care, completing clinical documentation, performing a medically appropriate examination, counseling and educating the patient/family/caregiver, ordering medications, tests, or p rocedures, and independently interpreting results (not separately reported). Rinku Ramsey MD, CPE Hematology and Oncology Services Provided at: [place], [place] CC: Dr. Chadd Deluna documented in this encounterSalem [facility] Hospital03-17-2023 Miscellaneous Notes* Telephone Encounter - Joanne Alvarez - 09/23/2022 9:24 AM EDT Patient would like script for 90 days please. Joanne Alvarez documented in this encounterSalem [facility]03-10-2023 Miscellaneous Notes* Telephone Encounter - Rinku Ramsey MD - 09/16/2022 3:30 PM EST This really should go through her PCP documented in this encounterSalem [facility] Hospital03-09-2023 Instructions* Patient Instructions* Rinku Ramsey MD - 09/15/2022 3:53 PM EST Continue Tavalisse 100 mg twice daily. (Actually takes 2 pills at the same time) Losartan was increased by nephrology. Taking Losartan 50 mg daily. Continue HCTZ. Follow up in 6 weeks with labs. documented in this encounterSalem [facility]03-09-2023 History of Present illness Narrative* Rinku Ramsey MD - 09/15/2022 3:34 PM EST Images from the original note were not included. NAME: Andrei Fish [facility] NO.: [id number] DATE OF SERVICE: September 15, 2022 (Joon) Some elements in this clinic note that are critical to medical decision making have been carefully reviewed and included from a prior clinic note dated: August 04, 2021 ([place]) Additional Clinicians involved in Andrei Fish's care: [...] 08/29/2022 and then a follow-up with her ecotherapist on 09/07/2022. Overall, she is doing well [...] as they are slightlyincreased. Got back from [place] and saw her sisters and had a [...] had a consultation with nephrology, Dr. Gilson Arriola. Dr. Arriola increased her losartan to 50 mg daily. [...] why she was going to see a ecotherapist for her blood pressure. Patient also has [...] which included preparing to see the patient, [id number]-foxb patient care, completing clinical documentation, performing a medically appropriate examination, counseling and educating the patient/family/caregiver, ordering medications, tests, or p rocedures, and independently interpreting results (not separately reported). Rinku Ramsey MD, CPE Hematology and Oncology Services Provided at: [place], [place] CC: Dr. Chadd Deluna documented in this encounterSalem [facility] Hospital03-01-2023 Evaluation note* Encounter Date Diagnosis Assessment [...] (ICD-10 - D64.9) She follows with Hematology [facility] [employer] Other 01-27-2023 Miscellaneous Notes* Telephone Encounter - Jayden Connelly APRN.PATIENT CARE TECHNICIAN - 08/05/2022 2:23 PM EST The following [...] appropriate Jayden Connelly APRN.STEPH documented in this encounterSalem City Hospital01-26-2023 Miscellaneous Notes* Telephone Encounter - Karen Muñoz - 08/04/2022 2:40 PM EST Patient wanted to hold off on being referred to Dermatology at this time. She is going to check with her insurance company for in network providers and let our office know on where she would like to be referred to. Karen Muñoz documented in this encounterSalem City Hospital01-26-2023 History of Present illness Narrative* Jayden Connelly APRN.CNP - 08/04/2022 2:04 PM EST Images from the original note were not included. NAME: Andrei Fish CLIN[facility] NO.: [id number] DATE OF SERVICE: August 04, 2021 ([place]) [...] 08/29/2022 and then a follow-up with her ecotherapist on 09/07/2022. Overall, she is doing well [...] as they are slightlyincreased. Got back from [place] and saw her sisters and had a [...] had a consultation with nephrology, Dr. Gilson Arriola. Dr. Arriola increased her losartan to 50 mg daily. [...] why she was going to see a ecotherapist for her blood pressure. Patient also has [...] APRN.CNP Hematology and Oncology Services Provided at: [place], [place] CC: Dr. Chadd Deluna I spent a total of 30 minutes on the date of the service which included preparing to see the patient, [id number] patient care, completing clinical documentation, obtaining and/or reviewing separately obtained history, performing a medically appropriate examination, counseling and educating the pat ient/family/caregiver, ordering medications, tests, or procedures, independently interpreting results (not separately reported), and communicating results to the patient/family/caregiver. documented in this encounterSalem City Hospital01-16-2023 Miscellaneous Notes* Telephone Encounter - Jayden Connelly APRN.CNP - 07/25/2022 10:33 AM EST The following approved medication requests have been transmitted electronically. Requested Prescriptions Signed Prescriptions Disp Refills benzonatate (TESSALON PERLE) 100 mg capsule 100 capsule 0 Sig: TAKE 1 CAPSULE BY MOUTH EVERY 6 HOURS NEEDED FOR COUGH. Authorizing Provider: JAYDEN CONNELLY APRN.CNP documented in this encounterSalem City Hospital01-04-2023 Miscellaneous Notes* Telephone Encounter - Jayden Connelly APRN.CNP - 07/13/2022 4:01 PM EST The following approved medication requests have been transmitted electronically. Requested Prescriptions Signed Prescriptions Disp Refills losartan (COZAAR) 25 mg tablet 60 tablet 1 Sig: TAKE 2 TABLETS BY MOUTH EVERY DAY Authorizing Provider: JAYDEN CONNELLY APRN.CNP documented in this encounterSalem City Hospital12-15-2022 Instructions* Patient Instructions* Rinku Ramsey MD - 06/23/2022 2:44 PM EST Continue Tavalisse 100 mg twice daily. Losartan was increased by nephrology. Taking Losartan 50 mg daily. Continue HCTZ. Right read lesion - trial of ice. Follow up in 6 weeks with labs. See Jayden quinn. - consider biopsy of right read. documented in this encounterSalem City Hospital12-15-2022 History of Present illness Narrative* Rinku Ramsey MD - 06/23/2022 2:30 PM EST Images from the original note were not included. NAME: FishAndrei CLINIC NO.: [id number] DATE OF SERVICE: June 23, 2022 ([place]oon) Some elements in this clinic note that are critical to medical decision making have been carefully reviewed and included from a prior clinic note dated: May 12, 2022 ([place]) Additional Clinicians involved in Paulalicia Fish's care: [...] as they are slightlyincreased. Got back from [place] and saw her sisters and had a [...] had a consultation with nephrology, Dr. Gilson Arriola. Dr. Arriola increased her losartan to 50 mg daily. [...] why she was going to see a ecotherapist for her blood pressure. Patient also has [...] which included preparing to see the patient, [id number] patient care, completing clinical documentation, performing a medically appropriate examination, counseling and educating the patient/family/caregiver, ordering medications, tests, or p rocedures, and independently interpreting results (not separately reported). Rinku Ramsey MD, CPE Hematology and Oncology Services Provided at: [place], [place] CC: Dr. Chadd Deluna documented [facility] Miscellaneous Notes* Telephone Encounter - Jayden Connelly APRN.CNP - 05/20/2022 3:34 PM EST The following approved medication requests have been transmitted electronically. Requested Prescriptions Signed Prescriptions Disp Refills losartan (COZAAR) 25 mg tablet 60 tablet 1 Sig: TAKE 2 TABLETS BY MOUTH EVERY DAY Authorizing Provider: JAYDEN CONNELLY APRN.CNP documented in this encounterSalem [facility]11-03-2022 History of Present illness Narrative* Jayden Connelly APRN.CNP - 05/12/2022 2:15 PM EDT NAME: Andrei Fish CLINIC NO.: [id number] DATE OF SERVICE: May 12, 2022 ([place]) [...] as they are slightlyincreased. Got back from [place] and saw her sisters and had a [...] had a consultation with nephrology, Dr. Gilson Arriola. Dr. Arriola increased her losartan to 50 mg daily. [...] why she was going to see a ecotherapist for her blood pressure. Patient also has [...] No family history on file. Jayden Connelly APRN.[facility] Hematology and Oncology Services Provided at: [place], [place] CC: Dr. Chadd Deluna I spent a total of 30 minutes on the date of the service which included preparing to see the patient, [id number] patient care, completing clinical documentation, obtaining and/or reviewing separately obtained history, performing a medically appropriate examination, counseling and educating the pat ient/family/caregiver, ordering medications, tests, or procedures, independently interpreting results (not separately reported), and communicating results to the patient/family/caregiver. documented in this encounterSalem [facility] Hospital09-22-2022 Instructions* Patient Instructions* Rinku Ramsey MD - 03/31/2022 2:50 PM EDT 1. Continue Tavalisse. 2. Losartan was increased by nephrology. Taking Losartan 50 mg daily. 3. Contnue HCTZ. 4. Follow up in 6 weeks with labs. documented in this encounterSalem City Hospital09-22-2022 History of Present illness Narrative* Rinku Ramsey MD - 03/31/2022 2:43 PM EDT Images from the original note were not included. NAME: FishAndrei dean [facility] NO.: [id number] DATE OF SERVICE: March 31, 2022 Some elements in this clinic note that are critical to medical decision making have been carefully reviewed and included from a prior clinic note dated: February 11, 2022 ([place]) Additional Clinicians involved in Andrei Fish's care: [...] as they are slightlyincreased. Got back from [place] and saw her sisters and had a [...] had a consultation with nephrology, Dr. Gilson Arriola. Dr. Arriola increased her losartan to 50 mg daily. [...] why she was going to see a ecotherapist for her blood pressure. Patient also has [...] which included preparing to see the patient, [id number] patient care, completing clinical documentation, performing a medically appropriate examination, ordering medications, tests, or procedures, and independently interpreting results (not separately reported). Rinku Ramsey MD, CPE Hematology and Oncology Services Provided at: [place], [place] CC: Chadd Deluna documented in this encounterSalem City Hospital08-29-2022 Miscellaneous Notes* Telephone Encounter - Jayden Connelly APRN.CNP - 03/07/2022 12:22 PM EDT The following approved medication requests have been transmitted electronically. Requested Prescriptions Signed Prescriptions Disp Refills pilocarpine (SALAGEN) 5 mg tablet 90 tablet 0 Sig: TAKE 1 TABLET BY MOUTH THREE TIMES A DAY Authorizing Provider: JAYDEN CONNELLY APRN.CNP documented in this encounterSalem City Hospital08-29-2022 Miscellaneous Notes* Telephone Encounter - Jayden Connelly APRN.CNP - 03/07/2022 11:21 AM EDT The following approved medication requests have been transmitted electronically. Requested Prescriptions Signed Prescriptions Disp Refills losartan (COZAAR) 25 mg tablet 60 tablet 1 Sig: TAKE 2 TABLETS BY MOUTH EVERY DAY Authorizing Provider: JAYDEN CONNELLY APRN.CNP documented in this encounterSalem City Hospital08-05-2022 History of Present illness Narrative* Jayden Connelly APRN.CNP - 02/11/2022 1:21 PM EDT Images from the original note were not included. NAME: Andrei Fish CLINIC NO.: [id number] DATE OF SERVICE: February 11, 2022 Some [...] had a consultation with nephrology, Dr. Gilson Arriola. Dr. Arriola increased her losartan to 50 mg daily. [...] why she was going to see a ecotherapist for her blood pressure. Patient also has [...] file. Jayden Connelly APRN.CNP Services Provided at: [place], [place] CC: Chadd Deluna documented in this encounterSalem City Hospital07-05-2022 Miscellaneous Notes* Telephone Encounter - Jayden Connelly APRN.CNP - 01/11/2022 4:13 PM EDT The following approved medication requests have been transmitted electronically. Signed Prescriptions Disp Refills losartan (COZAAR) 25 mg tablet 60 tablet 1 Sig: TAKE 2 TABLETS BY MOUTH EVERY DAY JOVON: No Authorizing Provider: JAYDEN CONNELLY APRN.CNP documented in this encounterSalem City Hospital06-10-2022 History of Present illness Narrative* Jayden Connelly APRN.CNP - 12/17/2021 3:13 PM EDT Images from the original note were not included. NAME: Andrei Fish NO.: [id number] DATE OF SERVICE: December 17, 2021 Some elements in this clinic note that are critical to medical decision making have been carefully reviewed and included from a prior clinic note dated: October 28, 2021. Additional Clinicians involved in Andrei Fish's care: Dr. Shay, Dr. Haladay CC: Chronic ITP ASSESSMENT/PLAN: 1. Thrombocytopenia (HCC) [...] had a consultation with nephrology, Dr. Gilson Arriola. Dr. Arriola increased her losartan to 50 mg daily. [...] why she was going to see a ecotherapist for her blood pressure. Patient also has [...] No family history on file. Jayden Connelly APRN.PATIENT CARE TECHNICIAN Services Provided at: [place], [place] CC: Chadd Srivastava Mikie Almost had a fall MRI kidney- [facility] Nephrology documented in this encounterSalem City Hospital05-04-2022 Evaluation note* Encounter Date Diagnosis Assessment [...] advised her to follow with sleep specialist. [facility] Other 04-21-2022 History of Present illness Narrative* Rinku Ramsey MD - 10/28/2021 11:41 AM EDT Images from the original note were not included. NAME: Andrei Fish CLINIC NO.: [id number] DATE OF SERVICE: October 28, 2021 Some elements in this clinic note that are critical to medical decision making have been carefully reviewed and included from a prior clinic note dated: September 16, 2021 Additional Clinicians involved in Adnrei Fish's care: Dr. Shay, Dr. Deluna CC: [...] why she was going to see a ecotherapist for her blood pressure. Patient also has [...] which included preparing to see the patient, [id number] patient care, completing clinical documentation, performing a medically appropriate examination, ordering medications, tests, or procedures and care coordination (not separately reporte d). Rinku Ramsey MD, CPE Services Provided at: [facility], [place], [place] & [place], [place] CC: Chadd Deluna documented in this encounterSalem City Hospital04-18-2022 History of Present illness Narrative* Mary Ellen Tidwell MA - 10/25/2021 8:12 AM EDT POPULATION HEALTH NAVIGATION OUTREACH Action/I Due for: PCP verify Spoke with patient; she stated she is currently looking for one near her home outside of [facility] Declined MyChart Pt identified by name and : NO Outreach Outcome/Action Spoke to patient or caregiver: Patient declined Reason for Outreach Care Gap or Scheduling/Wellness visits Payer: Payor: [facility] / Plan: [facility] HMO / Product Type: HMO / [...] 25, 2021 8:13 AM documented in this [facility]04-12-2022 Miscellaneous Notes* Telephone Encounter - Jayden [...] Provider: JAYDEN CONNELLY APRN.CNP documented in this [facility]11-03-2021 Miscellaneous Notes* Telephone Encounter - Krista [...] questions. Gerard Harden RPh documented [facility] this [facility]* Diagnosis Essential hypertension Unspecified essential hypertension Chronic ITP (idiopathic thrombocytopenia) (HCC) Immune thrombocytopenic purpura Obstructive sleep apnea syndrome Obstructive sleep apnea (adult) (pediatric) Hypertension, unspecified type [facility] [place] [facility]* Diagnosis Chronic ITP (idiopathic thrombocytopenia) (HCC)- Primary Immune thrombocytopenic purpura Essential hypertension Unspecified essential hypertension Obstructive sleep apnea syndrome Obstructive sleep apnea (adult) (pediatric) Lung nodules Other nonspecific abnormal finding of lung field Systemic lupus erythematosus, unspecified SLE type, unspecified organ involvement status (HCC) documented [facility] [place] [facility]* Diagnosis Chronic ITP (idiopathic thrombocytopenia) (HCC)- Primary Immune thrombocytopenic purpura Hypertension, unspecified type Essential hypertension Unspecified essential hypertension Obstructive sleep apnea syndrome Obstructive sleep apnea (adult) (pediatric) Lung nodules Other nonspecific abnormal finding of lung field Systemic lupus erythematosus, unspecified SLE type, unspecified organ involvement status (HCC) documented [facility] [place] [facility]* Diagnosis Hypertension, unspecified type [facility]* Diagnosis Essential hypertension Unspecified essential hypertension Chronic ITP (idiopathic thrombocytopenia) (HCC) Immune thrombocytopenic purpura Obstructive sleep apnea syndrome Obstructive sleep apnea (adult) (pediatric) Hypertension, unspecified type [facility] [place] [facility]* Diagnosis Hypertension, unspecified type [facility] [place] [facility]* Diagnosis Chronic ITP (idiopathic thrombocytopenia) (HCC)- Primary Immune thrombocytopenic purpura Essential hypertension Unspecified essential hypertension Obstructive sleep apnea syndrome Obstructive sleep apnea (adult) (pediatric) Systemic lupus erythematosus, unspecified SLE type, unspecified organ involvement status (HCC) [facility]* Diagnosis Hypertension, unspecified type [facility] [place] [facility]* Diagnosis Chronic ITP (idiopathic thrombocytopenia) (HCC)- Primary Immune thrombocytopenic purpura Obstructive sleep apnea syndrome Obstructive sleep apnea (adult) (pediatric) documented [facility] [place] [facility]* Diagnosis Chronic ITP (idiopathic thrombocytopenia) (HCC)- Primary Immune thrombocytopenic purpura Obstructive sleep apnea syndrome Obstructive sleep apnea (adult) (pediatric) Essential hypertension Unspecified essential hypertension [facility] [place] [facility]* Diagnosis Hypertension, unspecified type [facility]* Diagnosis Chronic ITP (idiopathic thrombocytopenia) (HCC)- Primary Immune thrombocytopenic purpura Hypertension, unspecified type Obstructive sleep apnea syndrome Obstructive sleep apnea (adult) (pediatric) Systemic lupus erythematosus, unspecified SLE type, unspecified organ involvement status (HCC) [facility] [place] [facility]* Diagnosis Chronic ITP (idiopathic thrombocytopenia) (HCC)- Primary Immune thrombocytopenic purpura Obstructive sleep apnea syndrome Obstructive sleep apnea (adult) (pediatric) Hypertension, unspecified type Systemic lupus erythematosus, unspecified SLE type, unspecified organ involvement status (HCC) Malaise and fatigue Other malaise and fatigue Skin lesion of right lower extremity documented in this encounter [facility] note* Diagnosis Hypertension, unspecified type documented in this encounter [facility] noteNo assessment information [facility] Work Phone: Evaluation note* Diagnosis Chronic ITP (idiopathic thrombocytopenia) (HCC)- Primary Immune thrombocytopenic purpura Obstructive sleep apnea syndrome Obstructive sleep apnea (adult) (pediatric) documented in this encounter [facility] note* Diagnosis Hypertension, unspecified type documented in this encounter [facility] note* Diagnosis Chronic ITP (idiopathic thrombocytopenia) (HCC)- Primary Immune thrombocytopenic purpura documented in this encounter [facility] note* Diagnosis Chronic ITP (idiopathic thrombocytopenia) (HCC)- Primary Immune thrombocytopenic purpura Hypertension, unspecified type Obstructive sleep apnea syndrome Obstructive sleep apnea (adult) (pediatric) documented in this encounter [facility] note* Diagnosis Chronic ITP (idiopathic thrombocytopenia) (HCC)- Primary Immune thrombocytopenic purpura Essential hypertension Unspecified essential hypertension Obstructive sleep apnea syndrome Obstructive sleep apnea (adult) (pediatric) Systemic lupus erythematosus, unspecified SLE type, unspecified organ involvement status (HCC) documented in this encounter [facility] noteNo InformationNodeaconess incarn[facility] [employer] Other Evaluation note* Diagnosis Chronic ITP (idiopathic thrombocytopenia) (HCC)- Primary Immune thrombocytopenic purpura documented in this encounter [facility] note* Diagnosis Chronic ITP (idiopathic thrombocytopenia) (HCC)- Primary Immune thrombocytopenic purpura Essential hypertension Unspecified essential hypertension documented in this encounter [facility] note* Diagnosis Chronic ITP (idiopathic thrombocytopenia) (HCC)- Primary Immune thrombocytopenic purpura Essential hypertension Unspecified essential hypertension Hypertension, unspecified type documented in this encounter [facility] note* Diagnosis 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, left [facility] Diagnosis 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 [facility] Diagnosis Chronic ITP (idiopathic thrombocytopenia) (HCC)- Primary Immune thrombocytopenic purpura Essential hypertension Unspecified essential hypertension Obstructive sleep apnea syndrome Obstructive sleep apnea (adult) (pediatric) Systemic lupus erythematosus, unspecified SLE type, unspecified organ involvement status ([facility]) Malaise and fatigue Other malaise and fatigue documented [facility] this encounter [facility] [place] [facility]* Diagnosis Hypertension, unspecified type [facility] [place] [facility]* Diagnosis Cholesteatoma of left ear documented in this encounter [facility] Work Phone: Evaluation note* Diagnosis Cholesteatoma of left ear Perforation of left tympanic membrane Cholesteatoma of left ear documented in this encounter [facility] Work Phone: Evaluation note* Diagnosis Chronic ITP (idiopathic thrombocytopenia) (HCC)- Primary Immune thrombocytopenic purpura Stage 3b chronic kidney disease (HCC) Secondary hypertension Other secondary hypertension, unspecified Obstructive sleep apnea syndrome Obstructive sleep apnea (adult) (pediatric) documented in this encounter [facility] [place] [facility]* Diagnosis Preoperative examination- Primary Preoperative examination, unspecified Preoperative clearance- Primary Preoperative examination, unspecified documented in this encounter [facility] [place] [facility]* Diagnosis Cholesteatoma of left ear- Primary Preoperative clearance Unspecified pre-operative examination Cholesteatoma of left ear Post-operative pain Other acute postoperative pain HTN (hypertension) Unspecified essential hypertension documented in this encounter [facility] Work Phone: Evaluation note* Diagnosis Essential hypertension Unspecified essential hypertension Chronic ITP (idiopathic thrombocytopenia) (HCC) Immune thrombocytopenic purpura Obstructive sleep apnea syndrome Obstructive sleep apnea (adult) (pediatric) documented in this encounter [facility] [place] [facility]* Diagnosis Chronic ITP (idiopathic thrombocytopenia) (HCC)- Primary Immune thrombocytopenic purpura Essential hypertension Unspecified essential hypertension Obstructive sleep apnea syndrome Obstructive sleep apnea (adult) (pediatric) Stage 3b chronic kidney disease (HCC) [facility]* Diagnosis 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 Other vitamin B12 deficiency anemia Abnormal weight loss Loss of weight Lupus (HCC) Systemic lupus erythematosus Thrombocytopenia (HCC) Thrombocytopenia, unspecified Chronic ITP (idiopathic thrombocytopenia) (HCC) Immune thrombocytopenic purpura [facility] encounter [facility]* Diagnosis Chronic ITP (idiopathic thrombocytopenia) (HCC)- 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 Other vitamin B12 deficiency anemia Obstructive sleep apnea syndrome Obstructive sleep apnea (adult) (pediatric) [facility]* Diagnosis Left leg pain- Primary Pain in soft tissues of limb documented in this encounter [facility]* Diagnosis Coronary artery disease involving [place] coronary artery 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 (CMS/HCC) [facility] Diagnosis 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 Other vitamin B12 deficiency anemia Thrombocytopenia (HCC) Thrombocytopenia, unspecified Lupus Systemic lupus erythematosus Abnormal weight loss Loss of weight Chronic ITP (idiopathic thrombocytopenia) (HCC) Immune thrombocytopenic purpura [facility]* Diagnosis Hyperglycemia- Primary Other abnormal glucose Chronic ITP (idiopathic thrombocytopenia) (HCC) 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 Other vitamin B12 deficiency anemia Obstructive sleep apnea syndrome Obstructive sleep apnea (adult) (pediatric) [facility]* Diagnosis Ruptured ear drum, left- Primary Age-related osteoporosis without current pathological fracture (CMS/HCC) Leg pain, bilateral Pain in soft tissues of limb Left wrist pain Pain in joint, forearm Obesity (BMI 30-39.9) Claudication of both lower extremities (CMS/HCC) PAD (peripheral artery disease) (CMS/HCC) Unspecified peripheral vascular disease Tobacco dependence- Primary Tobacco use disorder Disease of thyroid gland (CMS/HCC) Unspecified disorder of thyroid Other fatigue Weakness of both legs Muscle weakness (generalized) Essential hypertension (CMS/HCC) Unspecified essential hypertension Claudication of both lower extremities (CMS/HCC) Chronic ITP (idiopathic thrombocytopenia) (CMS/HCC) Perforation of left tympanic membrane Hyperkalemia with normal acid-base balance Lumbar back pain- Primary Lumbago Systemic lupus erythematosus, unspecified (CMS/HCC) Chronic kidney disease, stage 3b (HCC) (CMS/HCC) Claudication of both lower extremities (CMS/HCC) Obesity (BMI 30-39.9) Tobacco dependence Tobacco use disorder PAD (peripheral artery disease) (CMS/HCC) Unspecified peripheral vascular disease Coronary artery disease involving stockbridge coronary artery 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 (CMS/HCC)- Primary Calcification of aortic valve Essential hypertension (CMS/HCC) Unspecified essential hypertension Thyroid nodule (CMS/HCC) Nontoxic uninodular goiter Obstructive sleep apnea syndrome- Primary Obstructive sleep apnea (adult) (pediatric) PAH (pulmonary artery hypertension) (CMS/HCC) Other chronic pulmonary heart diseases Coronary artery disease involving stockbridge coronary artery 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 (CMS/HCC)- Primary Elevated glucose level Essential hypertension (CMS/HCC) Unspecified essential hypertension Encounter for screening mammogram for malignant neoplasm of breast Other chest pain Disease of thyroid gland (CMS/HCC) Unspecified disorder of thyroid Obesity (BMI 30-39.9) Posterior left knee pain Thyroid nodule (CMS/HCC)- Primary Nontoxic uninodular goiter 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 Coronary artery disease involving stockbridge coronary artery 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 (CMS/HCC) Pre-diabetes Other abnormal glucose Obesity (BMI 30-39.9) Diarrhea, unspecified type [facility] Diagnosis Ruptured ear drum, left- Primary Age-related osteoporosis without current pathological fracture (CMS/HCC) Leg pain, bilateral Pain in soft tissues of limb Left wrist pain Pain in joint, forearm Obesity (BMI 30-39.9) Claudication of both lower extremities (CMS/HCC) PAD (peripheral artery disease) (CMS/HCC) Unspecified peripheral vascular disease Tobacco dependence- Primary Tobacco use disorder Disease of thyroid gland (CMS/HCC) Unspecified disorder of thyroid Other fatigue Weakness of both legs Muscle weakness (generalized) Essential hypertension (CMS/HCC) Unspecified essential hypertension Claudication of both lower extremities (CMS/HCC) Chronic ITP (idiopathic thrombocytopenia) (CMS/HCC) Perforation of left tympanic membrane Hyperkalemia with normal acid-base balance Lumbar back pain- Primary Lumbago Systemic lupus erythematosus, unspecified (CMS/HCC) Chronic kidney disease, stage 3b (HCC) (CMS/HCC) Claudication of both lower extremities (CMS/HCC) Obesity (BMI 30-39.9) Tobacco dependence Tobacco use disorder PAD (peripheral artery disease) (CMS/HCC) Unspecified peripheral vascular disease Coronary artery disease involving stockbridge coronary artery 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 (CMS/HCC)- Primary Calcification of aortic valve Essential hypertension (CMS/HCC) Unspecified essential hypertension Thyroid nodule (CMS/HCC) Nontoxic uninodular goiter Obstructive sleep apnea syndrome- Primary Obstructive sleep apnea (adult) (pediatric) PAH (pulmonary artery hypertension) (CMS/HCC) Other chronic pulmonary heart diseases Coronary artery disease involving stockbridge coronary artery 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 (CMS/HCC)- Primary Elevated glucose level Essential hypertension (CMS/HCC) Unspecified essential hypertension Encounter for screening mammogram for malignant neoplasm of breast Other chest pain Disease of thyroid gland (CMS/HCC) Unspecified disorder of thyroid Obesity (BMI 30-39.9) Posterior left knee pain Thyroid nodule (CMS/HCC)- Primary Nontoxic uninodular goiter 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 Coronary artery disease involving stockbridge coronary artery 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 (CMS/HCC) Pre-diabetes Other abnormal glucose Obesity (BMI 30-39.9) Diarrhea, unspecified type Multiple lung nodules on CT- Primary documented in this encounter [facility]* Diagnosis Ruptured ear drum, left- Primary Age-related osteoporosis without current pathological fracture (CMS/HCC) Leg pain, bilateral Pain in soft tissues of limb Left wrist pain Pain in joint, forearm Obesity (BMI 30-39.9) Claudication of both lower extremities (CMS/HCC) PAD (peripheral artery disease) (CMS/HCC) Unspecified peripheral vascular disease Tobacco dependence- Primary Tobacco use disorder Disease of thyroid gland (CMS/HCC) Unspecified disorder of thyroid Other fatigue Weakness of both legs Muscle weakness (generalized) Essential hypertension (CMS/HCC) Unspecified essential hypertension Claudication of both lower extremities (CMS/HCC) Chronic ITP (idiopathic thrombocytopenia) (CMS/HCC) Perforation of left tympanic membrane Hyperkalemia with normal acid-base balance Lumbar back pain- Primary Lumbago Systemic lupus erythematosus, unspecified (CMS/HCC) Chronic kidney disease, stage 3b (HCC) (CMS/HCC) Claudication of both lower extremities (CMS/HCC) Obesity (BMI 30-39.9) Tobacco dependence Tobacco use disorder PAD (peripheral artery disease) (CMS/HCC) Unspecified peripheral vascular disease Coronary artery disease involving [place] coronary artery 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 (CMS/HCC)- Primary Calcification of aortic valve Essential hypertension (CMS/HCC) Unspecified essential hypertension Thyroid nodule (CMS/HCC) Nontoxic uninodular goiter Obstructive sleep apnea syndrome- Primary Obstructive sleep apnea (adult) (pediatric) PAH (pulmonary artery hypertension) (CMS/HCC) Other chronic pulmonary heart diseases Coronary artery disease involving [place] coronary artery 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 (CMS/HCC)- Primary Elevated glucose level Essential hypertension (CMS/HCC) Unspecified essential hypertension Encounter for screening mammogram for malignant neoplasm of breast Other chest pain Disease of thyroid gland (CMS/HCC) Unspecified disorder of thyroid Obesity (BMI 30-39.9) Posterior left knee pain Thyroid nodule (CMS/HCC)- Primary Nontoxic uninodular goiter 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 Coronary artery disease involving [place] coronary artery 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 (CMS/HCC) Pre-diabetes Other abnormal glucose Obesity (BMI 30-39.9) Diarrhea, unspecified type Encounter for subsequent annual wellness visit (AWV) in Medicare patient- Primary Tobacco dependence Tobacco use disorder Pre-diabetes Other abnormal glucose Obesity (BMI 30-39.9) Age-related osteoporosis without current pathological fracture (CMS/HCC) Coronary artery disease involving [place] coronary artery 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 (CMS/HCC) Essential hypertension (CMS/HCC) Unspecified essential hypertension [facility] Diagnosis Ruptured ear drum, left- Primary Age-related osteoporosis without current pathological fracture (CMS/HCC) Leg pain, bilateral Pain in soft tissues of limb Left wrist pain Pain in joint, forearm Obesity (BMI 30-39.9) Claudication of both lower extremities (CMS/HCC) PAD (peripheral artery disease) (CMS/HCC) Unspecified peripheral vascular disease Tobacco dependence- Primary Tobacco use disorder Disease of thyroid gland (CMS/HCC) Unspecified disorder of thyroid Other fatigue Weakness of both legs Muscle weakness (generalized) Essential hypertension (CMS/HCC) Unspecified essential hypertension Claudication of both lower extremities (CMS/HCC) Chronic ITP (idiopathic thrombocytopenia) (CMS/HCC) Perforation of left tympanic membrane Hyperkalemia with normal acid-base balance Lumbar back pain- Primary Lumbago Systemic lupus erythematosus, unspecified (CMS/HCC) Chronic kidney disease, stage 3b (HCC) (CMS/HCC) Claudication of both lower extremities (CMS/HCC) Obesity (BMI 30-39.9) Tobacco dependence Tobacco use disorder PAD (peripheral artery disease) (CMS/HCC) Unspecified peripheral vascular disease Coronary artery disease involving [place] coronary artery 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 (CMS/HCC)- Primary Calcification of aortic valve Essential hypertension (CMS/HCC) Unspecified essential hypertension Thyroid nodule (CMS/HCC) Nontoxic uninodular goiter Obstructive sleep apnea syndrome- Primary Obstructive sleep apnea (adult) (pediatric) PAH (pulmonary artery hypertension) (CMS/HCC) Other chronic pulmonary heart diseases Coronary artery disease involving [place] coronary artery 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 (CMS/HCC)- Primary Elevated glucose level Essential hypertension (CMS/HCC) Unspecified essential hypertension Encounter for screening mammogram for malignant neoplasm of breast Other chest pain Disease of thyroid gland (CMS/HCC) Unspecified disorder of thyroid Obesity (BMI 30-39.9) Posterior left knee pain Thyroid nodule (CMS/HCC)- Primary Nontoxic uninodular goiter 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 Coronary artery disease involving [place] coronary artery 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 (CMS/HCC) Pre-diabetes Other abnormal glucose Obesity (BMI 30-39.9) Diarrhea, unspecified type Left leg pain- Primary Pain in soft tissues of limb Lumbar pain Lumbago Weakness of left lower extremity Encounter for subsequent annual wellness visit (AWV) in Medicare patient- Primary Tobacco dependence Tobacco use disorder Pre-diabetes Other abnormal glucose Obesity (BMI 30-39.9) Age-related osteoporosis without current pathological fracture (CMS/HCC) Coronary artery disease involving [place] coronary artery 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 (CMS/HCC) Essential hypertension (CMS/HCC) Unspecified essential hypertension documented in this encounter [facility]* Diagnosis Ruptured ear drum, left- Primary Age-related osteoporosis without current pathological fracture (CMS/HCC) Leg pain, bilateral Pain in soft tissues of limb Left wrist pain Pain in joint, forearm Obesity (BMI 30-39.9) Claudication of both lower extremities (CMS/HCC) PAD (peripheral artery disease) (CMS/HCC) Unspecified peripheral vascular disease Tobacco dependence- Primary Tobacco use disorder Disease of thyroid gland (CMS/HCC) Unspecified disorder of thyroid Other fatigue Weakness of both legs Muscle weakness (generalized) Essential hypertension (CMS/HCC) Unspecified essential hypertension Claudication of both lower extremities (CMS/HCC) Chronic ITP (idiopathic thrombocytopenia) (CMS/HCC) Perforation of left tympanic membrane Hyperkalemia with normal acid-base balance Lumbar back pain- Primary Lumbago Systemic lupus erythematosus, unspecified (CMS/HCC) Chronic kidney disease, stage 3b (HCC) (CMS/HCC) Claudication of both lower extremities (CMS/HCC) Obesity (BMI 30-39.9) Tobacco dependence Tobacco use disorder PAD (peripheral artery disease) (CMS/HCC) Unspecified peripheral vascular disease Coronary artery disease involving [place] coronary artery 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 (CMS/HCC)- Primary Calcification of aortic valve Essential hypertension (CMS/HCC) Unspecified essential hypertension Thyroid nodule (CMS/HCC) Nontoxic uninodular goiter Obstructive sleep apnea syndrome- Primary Obstructive sleep apnea (adult) (pediatric) PAH (pulmonary artery hypertension) (CMS/HCC) Other chronic pulmonary heart diseases Coronary artery disease involving [place] coronary artery 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 (CMS/HCC)- Primary Elevated glucose level Essential hypertension (CMS/HCC) Unspecified essential hypertension Encounter for screening mammogram for malignant neoplasm of breast Other chest pain Disease of thyroid gland (CMS/HCC) Unspecified disorder of thyroid Obesity (BMI 30-39.9) Posterior left knee pain Thyroid nodule (CMS/HCC)- Primary Nontoxic uninodular goiter 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 Coronary artery disease involving [place] coronary artery 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 (CMS/HCC) Pre-diabetes Other abnormal glucose Obesity (BMI 30-39.9) Diarrhea, unspecified type Encounter for subsequent annual wellness visit (AWV) in Medicare patient- Primary Tobacco dependence Tobacco use disorder Pre-diabetes Other abnormal glucose Obesity (BMI 30-39.9) Age-related osteoporosis without current pathological fracture (CMS/HCC) Coronary artery disease involving [place] coronary artery 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 (CMS/HCC) Essential hypertension (CMS/HCC) Unspecified essential hypertension Multiple lung nodules on CT- Primary documented [facility]* Diagnosis Ruptured ear drum, left- Primary Age-related osteoporosis without current pathological fracture (CMS/HCC) Leg pain, bilateral Pain in soft tissues of limb Left wrist pain Pain in joint, forearm Obesity (BMI 30-39.9) Claudication of both lower extremities (CMS/HCC) PAD (peripheral artery disease) (CMS/HCC) Unspecified peripheral vascular disease Tobacco dependence- Primary Tobacco use disorder Disease of thyroid gland (CMS/HCC) Unspecified disorder of thyroid Other fatigue Weakness of both legs Muscle weakness (generalized) Essential hypertension (CMS/HCC) Unspecified essential hypertension Claudication of both lower extremities (CMS/HCC) Chronic ITP (idiopathic thrombocytopenia) (CMS/HCC) Perforation of left tympanic membrane Hyperkalemia with normal acid-base balance Lumbar back pain- Primary Lumbago Systemic lupus erythematosus, unspecified (CMS/HCC) Chronic kidney disease, stage 3b (HCC) (CMS/HCC) Claudication of both lower extremities (CMS/HCC) Obesity (BMI 30-39.9) Tobacco dependence Tobacco use disorder PAD (peripheral artery disease) (CMS/HCC) Unspecified peripheral vascular disease Coronary artery disease involving [place] coronary artery 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 (CMS/HCC)- Primary Calcification of aortic valve Essential hypertension (CMS/HCC) Unspecified essential hypertension Thyroid nodule (CMS/HCC) Nontoxic uninodular goiter Obstructive sleep apnea syndrome- Primary Obstructive sleep apnea (adult) (pediatric) PAH (pulmonary artery hypertension) (CMS/HCC) Other chronic pulmonary heart diseases Coronary artery disease involving [place] coronary artery 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 (CMS/HCC)- Primary Elevated glucose level Essential hypertension (CMS/HCC) Unspecified essential hypertension Encounter for screening mammogram for malignant neoplasm of breast Other chest pain Disease of thyroid gland (CMS/HCC) Unspecified disorder of thyroid Obesity (BMI 30-39.9) Posterior left knee pain Thyroid nodule (CMS/HCC)- Primary Nontoxic uninodular goiter 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 Coronary artery disease involving [place] coronary artery 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 (CMS/HCC) Pre-diabetes Other abnormal glucose Obesity (BMI 30-39.9) Diarrhea, unspecified type Encounter for subsequent annual wellness visit (AWV) in Medicare patient- Primary Tobacco dependence Tobacco use disorder Pre-diabetes Other abnormal glucose Obesity (BMI 30-39.9) Age-related osteoporosis without current pathological fracture (CMS/HCC) Coronary artery disease involving [place] coronary artery 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 (CMS/HCC) Essential hypertension (CMS/HCC) Unspecified essential hypertension Hyperthyroidism (CMS/HCC)- Primary Thyrotoxicosis without mention of goiter or other cause, without mention of thyrotoxic crisis or storm Thyroid nodule (CMS/HCC) Nontoxic uninodular goiter documented in this encounter [facility]* Diagnosis Ruptured ear drum, left- Primary Age-related osteoporosis without current pathological fracture (CMS/HCC) Leg pain, bilateral Pain in soft tissues of limb Left wrist pain Pain in joint, forearm Obesity (BMI 30-39.9) Claudication of both lower extremities (CMS/HCC) PAD (peripheral artery disease) (CMS/HCC) Unspecified peripheral vascular disease Tobacco dependence- Primary Tobacco use disorder Disease of thyroid gland (CMS/HCC) Unspecified disorder of thyroid Other fatigue Weakness of both legs Muscle weakness (generalized) Essential hypertension (CMS/HCC) Unspecified essential hypertension Claudication of both lower extremities (CMS/HCC) Chronic ITP (idiopathic thrombocytopenia) (CMS/HCC) Perforation of left tympanic membrane Hyperkalemia with normal acid-base balance Lumbar back pain- Primary Lumbago Systemic lupus erythematosus, unspecified (CMS/HCC) Chronic kidney disease, stage 3b (HCC) (CMS/HCC) Claudication of both lower extremities (CMS/HCC) Obesity (BMI 30-39.9) Tobacco dependence Tobacco use disorder PAD (peripheral artery disease) (CMS/HCC) Unspecified peripheral vascular disease Coronary artery disease involving [place] coronary artery 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 (CMS/HCC)- Primary Calcification of aortic valve Essential hypertension (CMS/HCC) Unspecified essential hypertension Thyroid nodule (CMS/HCC) Nontoxic uninodular goiter Obstructive sleep apnea syndrome- Primary Obstructive sleep apnea (adult) (pediatric) PAH (pulmonary artery hypertension) (CMS/HCC) Other chronic pulmonary heart diseases Coronary artery disease involving [place] coronary artery 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 (CMS/HCC)- Primary Elevated glucose level Essential hypertension (CMS/HCC) Unspecified essential hypertension Encounter for screening mammogram for malignant neoplasm of breast Other chest pain Disease of thyroid gland (CMS/HCC) Unspecified disorder of thyroid Obesity (BMI 30-39.9) Posterior left knee pain Thyroid nodule (CMS/HCC)- Primary Nontoxic uninodular goiter 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 Coronary artery disease involving [place] coronary artery 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 (CMS/HCC) Pre-diabetes Other abnormal glucose Obesity (BMI 30-39.9) Diarrhea, unspecified type Encounter for subsequent annual wellness visit (AWV) in Medicare patient- Primary Tobacco dependence Tobacco use disorder Pre-diabetes Other abnormal glucose Obesity (BMI 30-39.9) Age-related osteoporosis without current pathological fracture (CMS/HCC) Coronary artery disease involving [place] coronary artery 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 (CMS/HCC) Essential hypertension (CMS/HCC) Unspecified essential hypertension Multiple lung nodules on CT- Primary documented in this encounter [facility]* Diagnosis 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 Other vitamin B12 deficiency anemia Chronic ITP (idiopathic thrombocytopenia) (HCC) Immune thrombocytopenic purpura Thrombocytopenia (HCC) Thrombocytopenia, unspecified Hyperglycemia Other abnormal glucose Obstructive sleep apnea syndrome Obstructive sleep apnea (adult) (pediatric) [facility] Chronic ITP (idiopathic thrombocytopenia) (HCC)- Primary Immune thrombocytopenic purpura Stage 3b chronic kidney disease (HCC) Secondary hypertension Other secondary hypertension, unspecified [facility] Diagnosis Obstructive sleep apnea syndrome- Primary Obstructive sleep apnea (adult) (pediatric) PAH (pulmonary artery hypertension) (CMS/HCC) Other chronic pulmonary heart diseases documented in this encounter [facility]* Diagnosis Cholesteatoma of left ear- Primary Encounter for postoperative care documented in this encounter [facility] Work Phone: Evaluation note* Diagnosis Thyroid nodule (CMS/HCC)- Primary Nontoxic uninodular goiter Calcification of aortic valve Coronary artery disease involving [place] coronary artery 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 (CMS/HCC) documented in this encounter [facility]* Diagnosis Coronary artery disease involving [place] coronary artery 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 (CMS/HCC)- Primary Calcification of aortic valve Essential hypertension (CMS/HCC) Unspecified essential hypertension Thyroid nodule (CMS/HCC) Nontoxic uninodular goiter documented in this encounter [facility]* Diagnosis Coronary artery disease involving [place] coronary artery 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 (CMS/HCC) documented in this encounter [facility]* Diagnosis Coronary artery disease involving [place] coronary artery 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 (CMS/HCC)- Primary Elevated glucose level Essential hypertension (CMS/HCC) Unspecified essential hypertension Encounter for screening mammogram for malignant neoplasm of breast Other chest pain Disease of thyroid gland (CMS/HCC) Unspecified disorder of thyroid Obesity (BMI 30-39.9) Posterior left knee pain documented in this encounter [facility]* Diagnosis Disease of thyroid gland (CMS/HCC)- Primary Unspecified disorder of thyroid documented in this encounter [facility] note* Diagnosis 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 Other vitamin B12 deficiency anemia Thrombocytopenia (HCC) Thrombocytopenia, unspecified Abnormal weight loss Loss of weight Chronic ITP (idiopathic thrombocytopenia) (HCC) Immune thrombocytopenic purpura [facility] [place] [facility] Diagnosis 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 Other vitamin B12 deficiency anemia Chronic ITP (idiopathic thrombocytopenia) (HCC) Immune thrombocytopenic purpura [facility] Diagnosis Hypertension, unspecified type [facility] [place] [facility] Diagnosis Ruptured ear drum, left- Primary Age-related osteoporosis without current pathological fracture (CMS/HCC) Leg pain, bilateral Pain in soft tissues of limb Left wrist pain Pain in joint, forearm Obesity (BMI 30-39.9) Claudication of both lower extremities (CMS/HCC) PAD (peripheral artery disease) (CMS/HCC) Unspecified peripheral vascular disease Tobacco dependence- Primary Tobacco use disorder Disease of thyroid gland (CMS/HCC) Unspecified disorder of thyroid Other fatigue Weakness of both legs Muscle weakness (generalized) Essential hypertension (CMS/HCC) Unspecified essential hypertension Claudication of both lower extremities (CMS/HCC) Chronic ITP (idiopathic thrombocytopenia) (CMS/HCC) Perforation of left tympanic membrane Hyperkalemia with normal acid-base balance Lumbar back pain- Primary Lumbago Systemic lupus erythematosus, unspecified (CMS/HCC) Chronic kidney disease, stage 3b (HCC) (CMS/HCC) Claudication of both lower extremities (CMS/HCC) Obesity (BMI 30-39.9) Tobacco dependence Tobacco use disorder PAD (peripheral artery disease) (CMS/HCC) Unspecified peripheral vascular disease Coronary artery disease involving [place] coronary artery 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 (CMS/HCC)- Primary Calcification of aortic valve Essential hypertension (CMS/HCC) Unspecified essential hypertension Thyroid nodule (CMS/HCC) Nontoxic uninodular goiter Obstructive sleep apnea syndrome- Primary Obstructive sleep apnea (adult) (pediatric) PAH (pulmonary artery hypertension) (CMS/HCC) Other chronic pulmonary heart diseases Coronary artery disease involving [place] coronary artery 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 (CMS/HCC)- Primary Elevated glucose level Essential hypertension (CMS/HCC) Unspecified essential hypertension Encounter for screening mammogram for malignant neoplasm of breast Other chest pain Disease of thyroid gland (CMS/HCC) Unspecified disorder of thyroid Obesity (BMI 30-39.9) Posterior left knee pain Thyroid nodule (CMS/HCC)- Primary Nontoxic uninodular goiter 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 Coronary artery disease involving [place] coronary artery 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 (CMS/HCC) Pre-diabetes Other abnormal glucose Obesity (BMI 30-39.9) Diarrhea, unspecified type Encounter for subsequent annual wellness visit (AWV) in Medicare patient- Primary Tobacco dependence Tobacco use disorder Pre-diabetes Other abnormal glucose Obesity (BMI 30-39.9) Age-related osteoporosis without current pathological fracture (CMS/HCC) Coronary artery disease involving [place] coronary artery 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 (CMS/HCC) Essential hypertension (CMS/HCC) Unspecified essential hypertension Essential hypertension (CMS/HCC)- Primary Unspecified essential hypertension Systemic lupus erythematosus, unspecified (CMS/HCC) 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 Chronic kidney disease, stage 3a (HCC) (CMS/HCC) 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 Secondary pulmonary arterial hypertension (CMS/HCC) Coronary artery disease involving [place] coronary artery 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 (CMS/HCC) PAH (pulmonary artery hypertension) (CMS/HCC) Other chronic pulmonary heart diseases Obesity (BMI 30-39.9) Pre-diabetes Other abnormal glucose Tobacco dependence Tobacco use disorder Multiple lung nodules on CT Family history of cancer Family history of unspecified malignant neoplasm documented in this encounter [facility]* Diagnosis Onset Date Resolution Status Admit Date Anemia of renal disease acute F ebruary 2024 12:51pm Chronic ITP (idiopathic thrombocytopenia) acute August 21, 2024 12:51pm CKD (chronic kidney disease) stage 3, GFR 30-59 ml/min acute Februa 2024 12:51pm Complex renal cyst acute Februa 2024 12:51pm Hypertensive chronic kidney disease with stage 1 through stage 4 chronic ki acute August 12:51pm Hyperuricemia acute August 212024 12:51pm Lupus acute August 21, 2024 12:51pm ADALBERTO (obstructive sleep apnea) acute August 21, 2024 12:51pm Vitamin D deficiency acute [facility] 2024 12:51pm [facility] Work Phone: Evaluation note* Diagnosis 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 Other vitamin B12 deficiency anemia Thrombocytopenia (HCC) Thrombocytopenia, unspecified Abnormal weight loss Loss of weight Chronic ITP (idiopathic thrombocytopenia) (HCC) Immune thrombocytopenic purpura [facility] [place] [facility]* Diagnosis 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 Other vitamin B12 deficiency anemia Thrombocytopenia (HCC) Thrombocytopenia, unspecified Chronic ITP (idiopathic thrombocytopenia) (HCC) Immune thrombocytopenic purpura [facility] Diagnosis Ruptured ear drum, left- Primary Age-related osteoporosis without current pathological fracture (CMS/HCC) Leg pain, bilateral Pain in soft tissues of limb Left wrist pain Pain in joint, forearm Obesity (BMI 30-39.9) Claudication of both lower extremities (CMS/HCC) PAD (peripheral artery disease) (CMS/HCC) Unspecified peripheral vascular disease Tobacco dependence- Primary Tobacco use disorder Disease of thyroid gland (CMS/HCC) Unspecified disorder of thyroid Other fatigue Weakness of both legs Muscle weakness (generalized) Essential hypertension (CMS/HCC) Unspecified essential hypertension Claudication of both lower extremities (CMS/HCC) Chronic ITP (idiopathic thrombocytopenia) (CMS/HCC) Perforation of left tympanic membrane Hyperkalemia with normal acid-base balance Lumbar back pain- Primary Lumbago Systemic lupus erythematosus, unspecified Chronic kidney disease, stage 3b (HCC) (CMS/HCC) Claudication of both lower extremities (CMS/HCC) Obesity (BMI 30-39.9) Tobacco dependence Tobacco use disorder PAD (peripheral artery disease) (CMS/HCC) Unspecified peripheral vascular disease Coronary artery disease involving stockbridge coronary artery 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 (CMS/HCC)- Primary Calcification of aortic valve Essential hypertension (CMS/HCC) Unspecified essential hypertension Thyroid nodule (CMS/HCC) Nontoxic uninodular goiter Obstructive sleep apnea syndrome- Primary Obstructive sleep apnea (adult) (pediatric) PAH (pulmonary artery hypertension) (CMS/HCC) Other chronic pulmonary heart diseases Coronary artery disease involving stockbridge coronary artery 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 (CMS/HCC)- Primary Elevated glucose level Essential hypertension (CMS/HCC) Unspecified essential hypertension Encounter for screening mammogram for malignant neoplasm of breast Other chest pain Disease of thyroid gland (CMS/HCC) Unspecified disorder of thyroid Obesity (BMI 30-39.9) Posterior left knee pain Thyroid nodule (CMS/HCC)- Primary Nontoxic uninodular goiter 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 Coronary artery disease involving stockbridge coronary artery 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 (CMS/HCC) Pre-diabetes Other abnormal glucose Obesity (BMI 30-39.9) Diarrhea, unspecified type Encounter for subsequent annual wellness visit (AWV) in Medicare patient- Primary Tobacco dependence Tobacco use disorder Pre-diabetes Other abnormal glucose Obesity (BMI 30-39.9) Age-related osteoporosis without current pathological fracture (CMS/HCC) Coronary artery disease involving stockbridge coronary artery 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 (CMS/HCC) Essential hypertension (CMS/HCC) Unspecified essential hypertension Essential hypertension (CMS/HCC)- Primary Unspecified essential hypertension Systemic lupus erythematosus, unspecified 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 Chronic kidney disease, stage 3a (HCC) (CMS/HCC) 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 Secondary pulmonary arterial hypertension (CMS/HCC) Coronary artery disease involving stockbridge coronary artery 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 (CMS/HCC) PAH (pulmonary artery hypertension) (CMS/HCC) Other chronic pulmonary heart diseases Obesity (BMI 30-39.9) Pre-diabetes Other abnormal glucose Tobacco dependence Tobacco use disorder Multiple lung nodules on CT Family history of cancer Family history of unspecified malignant neoplasm Coronary artery disease involving stockbridge coronary artery 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 (CMS/HCC) [facility] Diagnosis 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 Other vitamin B12 deficiency anemia Thrombocytopenia Thrombocytopenia, unspecified [facility] Diagnosis 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 Other vitamin B12 deficiency anemia Thrombocytopenia Thrombocytopenia, unspecified Abnormal weight loss Loss of weight Chronic ITP (idiopathic thrombocytopenia) (HCC) Immune thrombocytopenic purpura [facility] Diagnosis 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 Other vitamin B12 deficiency anemia Thrombocytopenia Thrombocytopenia, unspecified Abnormal weight loss Loss of weight Chronic ITP (idiopathic thrombocytopenia) (HCC) Immune thrombocytopenic purpura [facility] Chronic ITP (idiopathic thrombocytopenia) (HCC)- Primary Immune thrombocytopenic purpura Stage 3b chronic kidney disease (HCC) 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) 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 deficiency Other vitamin B12 deficiency anemia Systemic lupus erythematosus, unspecified SLE type, unspecified organ involvement status (HCC) [facility] Diagnosis Cholesteatoma of left ear- Primary 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 Preoperative clearance Unspecified pre-operative examination Thrombocytopenia Unspecified thrombocytopenia 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- Primary documented in this encounter [facility] Work Phone: Evaluation note* Diagnosis 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)- Primary [facility] Diagnosis 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)- Primary 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 deficiency Other vitamin B12 deficiency anemia Abnormal weight loss Loss of weight Other systemic lupus erythematosus with other organ involvement (HCC) Thrombocytopenia Thrombocytopenia, unspecified Chronic ITP (idiopathic thrombocytopenia) (HCC) Immune thrombocytopenic purpura [facility] Diagnosis Ruptured ear drum, left- Primary Age-related osteoporosis without current pathological fracture Leg pain, bilateral Pain in soft tissues of limb Left wrist pain Pain in joint, forearm Obesity (BMI 30-39.9) Claudication of both lower extremities PAD (peripheral artery disease) Unspecified peripheral vascular disease Tobacco dependence- Primary Tobacco use disorder Disease of thyroid gland Unspecified disorder of thyroid Other fatigue Weakness of both legs Muscle weakness (generalized) Essential hypertension Unspecified essential hypertension Claudication of both lower extremities Chronic ITP (idiopathic thrombocytopenia) (HCC) Perforation of left tympanic membrane Hyperkalemia with normal acid-base balance Lumbar back pain- Primary Lumbago Systemic lupus erythematosus, unspecified (HCC) Chronic kidney disease, stage 3b (CMS-HCC) Claudication of both lower extremities Obesity (BMI 30-39.9) Tobacco dependence Tobacco use disorder PAD (peripheral artery disease) Unspecified peripheral vascular disease Coronary artery disease involving stockbridge coronary artery 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- Primary Calcification of aortic valve Essential hypertension Unspecified essential hypertension Thyroid nodule Nontoxic uninodular goiter Obstructive sleep apnea syndrome- Primary Obstructive sleep apnea (adult) (pediatric) PAH (pulmonary artery hypertension) (HCC) Other chronic pulmonary heart diseases Coronary artery disease involving stockbridge coronary artery 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- Primary Elevated glucose level Essential hypertension Unspecified essential hypertension Encounter for screening mammogram for malignant neoplasm of breast Other chest pain Disease of thyroid gland Unspecified disorder of thyroid Obesity (BMI 30-39.9) Posterior left knee pain Thyroid nodule- Primary Nontoxic uninodular goiter 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 Coronary artery disease involving stockbridge coronary artery 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 Pre-diabetes Other abnormal glucose Obesity (BMI 30-39.9) Diarrhea, unspecified type Encounter for subsequent annual wellness visit (AWV) in Medicare patient- Primary Tobacco dependence Tobacco use disorder Pre-diabetes Other abnormal glucose Obesity (BMI 30-39.9) Age-related osteoporosis without current pathological fracture Coronary artery disease involving stockbridge coronary artery 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 Essential hypertension Unspecified essential hypertension Essential hypertension- Primary Unspecified essential hypertension Systemic lupus erythematosus, unspecified (HCC) 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 Chronic kidney disease, stage 3a (CMS-HCC) 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 Secondary pulmonary arterial hypertension (HCC) Coronary artery disease involving stockbridge coronary artery 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 PAH (pulmonary artery hypertension) (HCC) Other chronic pulmonary heart diseases Obesity (BMI 30-39.9) Pre-diabetes Other abnormal glucose Tobacco dependence Tobacco use disorder Multiple lung nodules on CT Family history of cancer Family history of unspecified malignant neoplasm Diarrhea, unspecified type- Primary Chronic kidney disease, stage 3b (CMS-HCC) Coronary artery disease involving stockbridge coronary artery 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 Essential hypertension Unspecified essential hypertension Obesity (BMI 30-39.9) Pre-diabetes Other abnormal glucose Chronic ITP (idiopathic thrombocytopenia) (HCC) Tobacco dependence Tobacco use disorder Thyroid nodule Nontoxic uninodular goiter [facility] - [facility]orted* Type Description Date Medical History PULMONARY NODULES Medical History LUPUS Medical History THROMBOCYTOPENIA Medical History HYPERTESNION Surgical History APPENDECTOMY Surgical History BACK SURGERY Surgical History CYST REMOVAL FROM LEFT BREAST Surgical History GALL BLADDER REMOVED Surgical History PARTIAL HYSTERECTOMY Surgical History OVARY REMOVAL Surgical History LEFT LEG FRACTURE WITH PIN AND PLATE PLACEMENT Hospitalization History SEE ABOVE [place] Other History general Narrative - Reported* Type [...] AND PLATE PLACEMENT Hospitalization History SEE ABOVE [place] Other Reason for referral (narrative)* Consultation (Routine) - Pending Review Specialty Diagnoses / Procedures Referred By Contac t Referred To Contact Orthopaedic Surgery Diagnoses Posterior left knee pain Stephanie Dumont NP [address] [place] [address] Jr. Herson Avalos DO [address] [place] [address] Referral ID Status Reason Start Date Expiration Date Visits Requested Visits Authorized [id number] Pending Review Specialty Services Required 04/04/2024 10/01/2024 1 1 Scheduling Instructions Pt requests dr avalos * Imaging (Routine) - Pending Review Specialty Diagnoses / Procedures Referred By Contac t Referred To Contact Diagnoses Essential hypertension (CMS/HCC) Coronary artery disease involving stockbridge coronary artery 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 (CMS/HCC) Other chest pain Procedures STRESS NUCLEAR MEDICINE Stephanie Kohli NP [address] [place] [address] [facility] [address] [place] [address] Referral ID Status Reason Start Date Expiration Date V isits Requested Visits Authorized [id number] Pending Review 04/04/2024 10/01/2024 3 3 [facility] [place] Prior Authorization (Routine) - Authorized Specialty Diagnoses / Procedures Referred By Contac t Referred To Contact Diagnoses 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) Rinku Ramsey MD [address] [place] [address] [place] [address] Phone: tel: fax: Rinku Ramsey MD [address] [place] [address] [place] [address] Phone: tel: fax: Referral ID Status Reason Start Date Expiration Date V isits Requested Visits Authorized [id number] Authorized 12/04/2024 12/04/2025 1 24 [facility] Summary Purpose Family History Relationship Condition Age at Onset Recorded Date/T solitario brother Hypertension Unknown Malignant neoplasm Unknown Diabetes mellitus Unknown Malignant neoplasm of kidney Unknown daughter Family history of mental disorder Unknown father Malignant neoplasm Unknown Malignant neoplasm of bone Unknown Unknown family member Unknown mother Hypertension Unknown Heart disease Unknown sister Heart disease Unknown History of stroke Unknown Malignant neoplasm of breast Unknown Hypertension Unknown Advance Directives Advance Directive Response Recorded Date/ Time Advance Directives No July 22, 2022 10:59am Advance Directive Response Recorded Date/ Time Advance Directives No June 11:57am Advance Directive Response Recorded Date/ Time Advance Directives No June 10:57am Reason for Referral Specialty Diagnoses / Procedures Referred By Contac t Referred To Contact Radiology Diagnoses Calcification of aortic valve Coronary artery disease involving stockbridge coronary artery 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 (CMS/HCC) Procedures Echocardiogram 2D complete Stephanie Dumont, JORDI [address] [place] [address] [facility] [address] [place] [address] Referral ID Status Reason Start Date Expiration Date Visits Requested Visits Authorized [id number] Incomplete Perform Procedure 02/26/2024 08/24/2024 1 1 Specialty Diagnoses / Procedures Referred By Contac t Referred To Contact Diagnoses Left leg pain Procedures NM bone 3 phase Blaise Alex, LISA [address] [place] [address] [facility] [address] [address] Referral ID Status Reason Start Date Expiration Date V isits Requested Visits Authorized [id number] Pending Review 04/09/2024 10/06/2024 4 4 Specialty Diagnoses / Procedures Referred By Contac t Referred To Contact Radiology Diagnoses Cholesteatoma of left ear Procedures CT internal auditory canals posterior [place]a [place] [address] [place] [address] Referral ID Status Reason Start Date Expiration Date Visits Requested Visits Authorized [id number] Pending Review Perform Procedure 11/14/2023 11/13/2024 1 1 Specialty Diagnoses / Procedures Referred By Contac t Referred To Contact Dermatology Diagnoses Skin lesion of right lower extremity Procedures CONSULT TO DERMATOLOGY Jyaden Connelly, MIRIAM.[address] [place] [address] Referral ID Status Reason Start Date Expiration Date Visits Requested Visits Authorized [id number] Ref Not Required PCP Requested Referral 08/04/2022 08/04/2023 1 1 Chief Complaint and Reason for Visit Chief Complaint HTN Lupus Chronic IT P I10 M32.9 D693 G47.33 n28.1 Chief Complaint Unknown Chief Complaint Admit Date RENAL 1 YR F/U August 21, 2024 12:51pm Reason for Visit Admit Date Anemia of renal disease August 21 12:51pm Chronic ITP (idiopathic thrombocytopenia ) August 21, 2024 12:51pm CKD (chronic kidney disease) stage 3, GF R 30-59 ml/min August 21, 2024 12:51pm Complex renal cyst August 21, 2024 12:51pm Hypertensive chronic kidney disease with stage 1 through stage 4 chronic ki August 21, 2024 12:51pm Hyperuricemia August 21, 2024 12:51pm Lupus August 21, 2024 12:51pm ADALBERTO (obstructive sleep apnea) August 102024 12:51pm Vitamin D deficiency August 21, 2024 12:51pm Additional Source Comments INFORMATION SOURCE (unrecogn ized section and content) DATE CREATED AUTHOR 01/02/2018 [facility] DATE CREATED AUTHOR AUTHOR'S ORGANIZ ATION 05/02/2024 [facility] DATE CREATED AUTHOR AUTHOR'S ORGANIZ ATION 07/21/2024 [facility] DATE CREATED AUTHOR AUTHOR'S ORGANIZ ATION 09/27/2024 [facility] DATE CREATED AUTHOR AUTHOR'S ORGANIZ ATION 11/28/2024 [facility] DATE CREATED AUTHOR AUTHOR'S ORGANIZ ATION 12/03/2024 [facility] DATE CREATED AUTHOR AUTHOR'S ORGANIZ ATION 2024 [facility] DATE CREATED AUTHOR AUTHOR'S ORGANIZ ATION 12/21/2024 [facility] DATE CREATED AUTHOR AUTHOR'S ORGANIZ ATION 12/23/2024 [facility] Source Comments (unrecognize d section and content) In the event this informatio n is protected by the Federal Confidentiality of Alcohol and Drug Abuse Patient Records regulations: The Federal rules restrict any use of the information to criminally investigate or prosecute any alcohol or drug abuse patient.[facility] the event this information is protected by the Federal Confidentiality of Alcohol and Drug Abuse Patient Records regulations: The Federal rules restrict any use of the information to criminally investigate or prosecute any alcohol or drug abuse patient.[facility] the event this information is protected by the Federal Confidentiality of Alcohol and Drug Abuse Patient Records regulations: The Federal rules restrict any use of the information to criminally investigate or prosecute any alcohol or drug abuse patient.[facility] the event this information is protected by the Federal Confidentiality of Alcohol and Drug Abuse Patient Records regulations: The Federal rules restrict any use of the information to criminally investigate or prosecute any alcohol or drug abuse patient.[facility] the event this information is protected by the Federal Confidentiality of Alcohol and Drug Abuse Patient Records regulations: The Federal rules restrict any use of the information to criminally investigate or prosecute any alcohol or drug abuse patient.[facility] the event this information is protected by the Federal Confidentiality of Alcohol and Drug Abuse Patient Records regulations: The Federal rules restrict any use of the information to criminally investigate or prosecute any alcohol or drug abuse patient.[facility] the event this information is protected by the Federal Confidentiality of Alcohol and Drug Abuse Patient Records regulations: The Federal rules restrict any use of the information to criminally investigate or prosecute any alcohol or drug abuse patient.[facility] the event this information is protected by the Federal Confidentiality of Alcohol and Drug Abuse Patient Records regulations: The Federal rules restrict any use of the information to criminally investigate or prosecute any alcohol or drug abuse patient.[facility] the event this information is protected by the Federal Confidentiality of Alcohol and Drug Abuse Patient Records regulations: The Federal rules restrict any use of the information to criminally investigate or prosecute any alcohol or drug abuse patient.[facility] the event this information is protected by the Federal Confidentiality of Alcohol and Drug Abuse Patient Records regulations: The Federal rules restrict any use of the information to criminally investigate or prosecute any alcohol or drug abuse patient.[facility] the event this information is protected by the Federal Confidentiality of Alcohol and Drug Abuse Patient Records regulations: The Federal rules restrict any use of the information to criminally investigate or prosecute any alcohol or drug abuse patient.[facility] the event this information is protected by the Federal Confidentiality of Alcohol and Drug Abuse Patient Records regulations: The Federal rules restrict any use of the information to criminally investigate or prosecute any alcohol or drug abuse patient.[facility] the event this information is protected by the Federal Confidentiality of Alcohol and Drug Abuse Patient Records regulations: The Federal rules restrict any use of the information to criminally investigate or prosecute any alcohol or drug abuse patient.[facility] the event this information is protected by the Federal Confidentiality of Alcohol and Drug Abuse Patient Records regulations: The Federal rules restrict any use of the information to criminally investigate or prosecute any alcohol or drug abuse patient.[facility] the event this information is protected by the Federal Confidentiality of Alcohol and Drug Abuse Patient Records regulations: The Federal rules restrict any use of the information to criminally investigate or prosecute any alcohol or drug abuse patient.[facility] the event this information is protected by the Federal Confidentiality of Alcohol and Drug Abuse Patient Records regulations: The Federal rules restrict any use of the information to criminally investigate or prosecute any alcohol or drug abuse patient.[facility] the event this information is protected by the Federal Confidentiality of Alcohol and Drug Abuse Patient Records regulations: The Federal rules restrict any use of the information to criminally investigate or prosecute any alcohol or drug abuse patient.[facility] the event this information is protected by the Federal Confidentiality of Alcohol and Drug Abuse Patient Records regulations: The Federal rules restrict any use of the information to criminally investigate or prosecute any alcohol or drug abuse patient.[facility] the event this information is protected by the Federal Confidentiality of Alcohol and Drug Abuse Patient Records regulations: The Federal rules restrict any use of the information to criminally investigate or prosecute any alcohol or drug abuse patient.[facility] the event this information is protected by the Federal Confidentiality of Alcohol and Drug Abuse Patient Records regulations: The Federal rules restrict any use of the information to criminally investigate or prosecute any alcohol or drug abuse patient.[facility] the event this information is protected by the Federal Confidentiality of Alcohol and Drug Abuse Patient Records regulations: The Federal rules restrict any use of the information to criminally investigate or prosecute any alcohol or drug abuse patient.[facility] the event this information is protected [...] or prosecute any alcohol or drug abuse patient.[facility] the event this information is protected by the Federal Confidentiality of Alcohol and Drug Abuse Patient Records regulations: The Federal rules restrict any use of the information to criminally investigate or prosecute any alcohol or drug abuse patient.[facility] the event this information is protected by the Federal Confidentiality of Alcohol and Drug Abuse Patient Records regulations: The Federal rules restrict any use of the information to criminally investigate or prosecute any alcohol or drug abuse patient.[facility] the event this information is protected by the Federal Confidentiality of Alcohol and Drug Abuse Patient Records regulations: The Federal rules restrict any use of the information to criminally investigate or prosecute any alcohol or drug abuse patient.[facility] the event this information is protected by the Federal Confidentiality of Alcohol and Drug Abuse Patient Records regulations: The Federal rules restrict any use of the information to criminally investigate or prosecute any alcohol or drug abuse patient.[facility] the event this information is protected by the Federal Confidentiality of Alcohol and Drug Abuse Patient Records regulations: The Federal rules restrict any use of the information to criminally investigate or prosecute any alcohol or drug abuse patient.[facility] the event this information is protected by the Federal Confidentiality of Alcohol and Drug Abuse Patient Records regulations: The Federal rules restrict any use of the information to criminally investigate or prosecute any alcohol or drug abuse patient.[facility] the event this information is protected by the Federal Confidentiality of Alcohol and Drug Abuse Patient Records regulations: The Federal rules restrict any use of the information to criminally investigate or prosecute any alcohol or drug abuse patient.[facility] the event this information is protected by the Federal Confidentiality of Alcohol and Drug Abuse Patient Records regulations: The Federal rules restrict any use of the information to criminally investigate or prosecute any alcohol or drug abuse patient.[facility] the event this information is protected by the Federal Confidentiality of Alcohol and Drug Abuse Patient Records regulations: The Federal rules restrict any use of the information to criminally investigate or prosecute any alcohol or drug abuse patient.[facility] the event this information is protected by the Federal Confidentiality of Alcohol and Drug Abuse Patient Records regulations: The Federal rules restrict any use of the information to criminally investigate or prosecute any alcohol or drug abuse patient.[facility] the event this information is protected by the Federal Confidentiality of Alcohol and Drug Abuse Patient Records regulations: The Federal rules restrict any use of the information to criminally investigate or prosecute any alcohol or drug abuse patient.[facility] HospitalIn the event this information is protected by the Federal Confidentiality of Alcohol and Drug Abuse Patient Records regulations: The Federal rules restrict any use of the information to criminally investigate or prosecute any alcohol or drug abuse patient.[facility] HospitalIn the event this information is protected by the Federal Confidentiality of Alcohol and Drug Abuse Patient Records regulations: The Federal rules restrict any use of the information to criminally investigate or prosecute any alcohol or drug abuse patient.[facility] HospitalIn the event this information is protected by the Federal Confidentiality of Alcohol and Drug Abuse Patient Records regulations: The Federal rules restrict any use of the information to criminally investigate or prosecute any alcohol or drug abuse patient.[facility] HospitalIn the event this information is protected by the Federal Confidentiality of Alcohol and Drug Abuse Patient Records regulations: The Federal rules restrict any use of the information to criminally investigate or prosecute any alcohol or drug abuse patient.[facility] HospitalIn the event this information is protected by the Federal Confidentiality of Alcohol and Drug Abuse Patient Records regulations: The Federal rules restrict any use of the information to criminally investigate or prosecute any alcohol or drug abuse patient.[facility] HospitalIn the event this information is protected by the Federal Confidentiality of Alcohol and Drug Abuse Patient Records regulations: The Federal rules restrict any use of the information to criminally investigate or prosecute any alcohol or drug abuse patient.[facility] HospitalIn the event this information is protected by the Federal Confidentiality of Alcohol and Drug Abuse Patient Records regulations: The Federal rules restrict any use of the information to criminally investigate or prosecute any alcohol or drug abuse patient.[facility] HospitalIn the event this information is protected by the Federal Confidentiality of Alcohol and Drug Abuse Patient Records regulations: The Federal rules restrict any use of the information to criminally investigate or prosecute any alcohol or drug abuse patient.[facility] HospitalIn the event this information is protected by the Federal Confidentiality of Alcohol and Drug Abuse Patient Records regulations: The Federal rules restrict any use of the information to criminally investigate or prosecute any alcohol or drug abuse patient.[facility] HospitalIn the event this information is protected by the Federal Confidentiality of Alcohol and Drug Abuse Patient Records regulations: The Federal rules restrict any use of the information to criminally investigate or prosecute any alcohol or drug abuse patient.[facility] HospitalIn the event this information is protected by the Federal Confidentiality of Alcohol and Drug Abuse Patient Records regulations: The Federal rules restrict any use of the information to criminally investigate or prosecute any alcohol or drug abuse patient.[facility] HospitalIn the event this information is protected by the Federal Confidentiality of Alcohol and Drug Abuse Patient Records regulations: The Federal rules restrict any use of the information to criminally investigate or prosecute any alcohol or drug abuse patient.[facility] HospitalIn the event this information is protected by the Federal Confidentiality of Alcohol and Drug Abuse Patient Records regulations: The Federal rules restrict any use of the information to criminally investigate or prosecute any alcohol or drug abuse patient.[facility] HospitalIn the event this information is protected by the Federal Confidentiality of Alcohol and Drug Abuse Patient Records regulations: The Federal rules restrict any use of the information to criminally investigate or prosecute any alcohol or drug abuse patient.[facility] HospitalIn the event this information is protected by the Federal Confidentiality of Alcohol and Drug Abuse Patient Records regulations: The Federal rules restrict any use of the information to criminally investigate or prosecute any alcohol or drug abuse patient.[facility] HospitalIn the event this information is protected by the Federal Confidentiality of Alcohol and Drug Abuse Patient Records regulations: The Federal rules restrict any use of the information to criminally investigate or prosecute any alcohol or drug abuse patient.[facility] HospitalIn the event this information is protected by the Federal Confidentiality of Alcohol and Drug Abuse Patient Records regulations: The Federal rules restrict any use of the information to criminally investigate or prosecute any alcohol or drug abuse patient.[facility] HospitalIn the event this information is protected by the Federal Confidentiality of Alcohol and Drug Abuse Patient Records regulations: The Federal rules restrict any use of the information to criminally investigate or prosecute any alcohol or drug abuse patient.[facility] HospitalIn the event this information is protected by the Federal Confidentiality of Alcohol and Drug Abuse Patient Records regulations: The Federal rules restrict any use of the information to criminally investigate or prosecute any alcohol or drug abuse patient.[facility] HospitalIn the event this information is protected by the Federal Confidentiality of Alcohol and Drug Abuse Patient Records regulations: The Federal rules restrict any use of the information to criminally investigate or prosecute any alcohol or drug abuse patient.[facility] HospitalIn the event this information is protected by the Federal Confidentiality of Alcohol and Drug Abuse Patient Records regulations: The Federal rules restrict any use of the information to criminally investigate or prosecute any alcohol or drug abuse patient.[facility] HospitalIn the event this information is protected by the Federal Confidentiality of Alcohol and Drug Abuse Patient Records regulations: The Federal rules restrict any use of the information to criminally investigate or prosecute any alcohol or drug abuse patient.[facility] HospitalIn the event this information is protected by the Federal Confidentiality of Alcohol and Drug Abuse Patient Records regulations: The Federal rules restrict any use of the information to criminally investigate or prosecute any alcohol or drug abuse patient.[facility] HospitalIn the event this information is protected by the Federal Confidentiality of Alcohol and Drug Abuse Patient Records regulations: The Federal rules restrict any use of the information to criminally investigate or prosecute any alcohol or drug abuse patient.[facility] HospitalIn the event this information is protected by the Federal Confidentiality of Alcohol and Drug Abuse Patient Records regulations: The Federal rules restrict any use of the information to criminally investigate or prosecute any alcohol or drug abuse patient.[facility] HospitalIn the event this information is protected by the Federal Confidentiality of Alcohol and Drug Abuse Patient Records regulations: The Federal rules restrict any use of the information to criminally investigate or prosecute any alcohol or drug abuse patient.[facility] HospitalIn the event this information is protected by the Federal Confidentiality of Alcohol and Drug Abuse Patient Records regulations: The Federal rules restrict any use of the information to criminally investigate or prosecute any alcohol or drug abuse patient.[facility] HospitalIn the event this information is protected by the Federal Confidentiality of Alcohol and Drug Abuse Patient Records regulations: The Federal rules restrict any use of the information to criminally investigate or prosecute any alcohol or drug abuse patient.[facility] HospitalIn the event this information is protected by the Federal Confidentiality of Alcohol and Drug Abuse Patient Records regulations: The Federal rules restrict any use of the information to criminally investigate or prosecute any alcohol or drug abuse patient.[facility] HospitalIn the event this information is protected by the Federal Confidentiality of Alcohol and Drug Abuse Patient Records regulations: The Federal rules restrict any use of the information to criminally investigate or prosecute any alcohol or drug abuse patient.[facility] HospitalIn the event this information is protected by the Federal Confidentiality of Alcohol and Drug Abuse Patient Records regulations: The Federal rules restrict any use of the information to criminally investigate or prosecute any alcohol or drug abuse patient.[facility] HospitalIn the event this information is protected by the Federal Confidentiality of Alcohol and Drug Abuse Patient Records regulations: The Federal rules restrict any use of the information to criminally investigate or prosecute any alcohol or drug abuse patient.[facility] HospitalIn the event this information is protected by the Federal Confidentiality of Alcohol and Drug Abuse Patient Records regulations: The Federal rules restrict any use of the information to criminally investigate or prosecute any alcohol or drug abuse patient.[facility] HospitalIn the event this information is protected by the Federal Confidentiality of Alcohol and Drug Abuse Patient Records regulations: The Federal rules restrict any use of the information to criminally investigate or prosecute any alcohol or drug abuse patient.[facility] HospitalIn the event this information is protected by the Federal Confidentiality of Alcohol and Drug Abuse Patient Records regulations: The Federal rules restrict any use of the information to criminally investigate or prosecute any alcohol or drug abuse patient.[facility] HospitalIn the event this information is protected by the Federal Confidentiality of Alcohol and Drug Abuse Patient Records regulations: The Federal rules restrict any use of the information to criminally investigate or prosecute any alcohol or drug abuse patient.[facility] HospitalIn the event this information is protected by the Federal Confidentiality of Alcohol and Drug Abuse Patient Records regulations: The Federal rules restrict any use of the information to criminally investigate or prosecute any alcohol or drug abuse patient.[facility] Reason for Visit (unrecogniz ed section [...] [place] [address] [place] [address] Referral ID Status Reason Start Date Expiration Date Visits Requested Visits Authorized [id number] Pending Review Perform Procedure 11/14/2023 11/13/2024 1 1 Reason Comments Hearing Loss Reason Comments Chronic ITP 6 week follow up Reason Comments Call Request Specialty Diagnoses / Procedures Referred By Jose Ramonac t Referred To Contact Diagnoses 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 [H71.92] Procedures [place] TMPP MASTOIDECT NTC/RCNSTED CANAL WALL OCR [place] GRAFT EAR CRTLG AUTOGENOUS NOSE/EAR [place] TMPP MASTOIDECTOMY W/OSSICULAR CHAIN RECNSTJ Left Side Tympanomastoidectomy Canal Wall Up; Ossiculoplasty; [place] [address] [place] [address] [facility] [address] [place] [address] Referral ID Status Reason Start Date Expiration Date Visits Re quested Visits Authorized [id number] 1 1 Reason Onset Date Comments Refill Request 01/25/2024 Reason Onset Date Comments Refill Request 04/02/2024 Reason Comments Thyroid fine needle biopsy at [facility]/ITP Reason Comments Pain Specialty Diagnoses / Procedures Referred By Sobia t Referred To Contact Orthopaedic Surgery Diagnoses Posterior left knee pain Stephanie Dumont, JORDI [address] [place] [address] Jr. Herson Avalos DO [address] [place] [address] Referral ID Status Reason Start Date Expiration Date V isits Requested Visits Authorized [id number] Closed Specialty Services Required 04/04/2024 10/01/2024 1 1 Reason Onset Date Comments Med Refill 04/10/2024 Reason Comments Thyroid Nodule FNA 04/16/24 [facility] Specialty Diagnoses / Procedures Referred By Sobia guallpa Referred To Contact Otolaryngology Diagnoses Thyroid nodule (CMS/HCC) Procedures [place] OFFICE/OUTPATIENT NEW HIGH MDM 60 MINUTES Stephanie Dumont, JORDI [address] [address] Phone: tel: fax: Mar Mayo MD [address] [facility] [address] [place] [address] Phone: tel: fax: Referral ID Status Reason Start Date Expiration Date V isits Requested Visits Authorized [id number] Closed Specialty Services Required 04/25/2024 10/22/2024 1 1 Reason Comments Chronic ITP High Blood Sugar Reason Comments Post-op Reason Comments Anemia Reason Comments Medication Assistance Program Medication Authorization [place] [place] Reason Comments Med Refill Reason Comments Follow-up Had hearing test Reason Comments Hypertension Care Teams (unrecognized sec tion and content) Team Status: Active Member Role Status Dates NON STAFF Primary Care Provider Active Team Status: Inactive Member Role Status Dates Gilson Arriola MD Attending Provider Active Start : August 21, 2024 End: August 21, 2024 NON STAFF Primary Care Provider Active Start: August 21, 2024 End: August 21, 2024 Fleshing Machine Operator Relationship Specialty Start Date End Date [address] [place] [place] [address] PCP - General Family Practice 05/26/21 05/31/21 Team Status: Inactive Member Role Status Dates Gilson Arriola MD Attending Provider Active NON STAFF Primary Care Provider Active Fleshing Machine Operator Relationship Specialty Start Date End Date Shaikh Biswas MD [address] [place] [address] PCP - General Primary Care 09/15/22 Fleshing Machine Operator Relationship Specialty Start Date End Date Shaikh Biswas MD [address] [place] [address] PCP - General Primary Care 09/15/22 Fleshing Machine Operator Relationship Specialty Start Date End Date Shaikh Biswas MD [address] [place] [address] PCP - General Primary Care 09/15/22 Fleshing Machine Operator Relationship Specialty Start Date End Date Shaikh Biswas MD [address] [place] [address] PCP - General Primary Care 09/15/22 Fleshing Machine Operator Relationship Specialty Start Date End Date Stephanie Dumont [address] [address] PCP - General 04/20/23 Fleshing Machine Operator Relationship Specialty Start Date End Date Stephanie Dumont [address] [place] [address] PCP - General 04/20/23 Fleshing Machine Operator Relationship Specialty Start Date End Date Stephanie Dumont [address] [place] [address] PCP - General 04/20/23 Fleshing Machine Operator Relationship Specialty Start Date End Date Wilfred Polanco MD [address] [place] [address] PCP - General Family Medicine 07/17/23 Stephanie Dumont NP [address] [place] [address] Nurse Practitioner Family Medicine 04/09/23 Fleshing Machine Operator Relationship Specialty Start Date End Date Wilfred Polanco MD [address] [place] [address] PCP - General Family Medicine 07/17/23 Stephanie Dumont NP [address] [place] [address] Nurse Practitioner Family Medicine 04/09/23 Fleshing Machine Operator Relationship Specialty Start Date End Date Wilfred Polanco MD [address] [place] [address] PCP - General Family Medicine 08/17/23 Stephanie Dumont NP [address] [place] [address] Nurse Practitioner Family Medicine 04/09/23 Fleshing Machine Operator Relationship Specialty Start Date End Date Wilfred Polanco MD [address] [place] [address] PCP - General Family Medicine 08/17/23 Stephanie Dumont NP [address] [place] [address] Nurse Practitioner Family Medicine 04/09/23 Fleshing Machine Operator Relationship Specialty Start Date End Date Wilfred Polanco MD [address] [place] [address] PCP - General Family Medicine 08/17/23 Stephanie Dumont NP [address] [place] [address] Nurse Practitioner Family Medicine 04/09/23 Fleshing Machine Operator Relationship Specialty Start Date End Date Stephanie Dumont [address] [place] [address] PCP - General 04/20/23 Fleshing Machine Operator Relationship Specialty Start Date End Date Stephanie Dumont [address] [place] [address] PCP - General 04/20/23 Fleshing Machine Operator Relationship Specialty Start Date End Date Stephanie Dumont [address] [place] [address] PCP - General 04/20/23 Fleshing Machine Operator Relationship Specialty Start Date End Date Stephanie Dumont [address] [place] [address] PCP - General 04/20/23 Fleshing Machine Operator Relationship Specialty Start Date End Date Stephanie Dumont PCP - General 04/20/23 Fleshing Machine Operator Relationship Specialty Start Date [facility] - [facility] 04/20/23 Fleshing Machine Operator Relationship Specialty Start Date End [facility] - General 04/20/23 Fleshing Machine Operator Relationship Specialty Start Date End [facility] - General 04/20/23 Fleshing Machine Operator Relationship Specialty Start Date End [facility] - General 04/20/23 Fleshing Machine Operator Relationship Specialty Start Date End [facility] - General 04/20/23 Fleshing Machine Operator Relationship Specialty Start Date End [facility] P[facility] - General 04/20/23 Fleshing Machine Operator Relationship Specialty Start Date End Date Wilfred Polanco MD [address] [place] [address] PCP - General Family Medicine 08/17/23 Stephanie Dumont NP [address] [place] [address] PCP - [facility] 10/09/23 12/07/70 Stephanie Dumont NP [address] [place] [address] Nurse Practitioner Family Medicine 04/09/23 Fleshing Machine Operator Relationship Specialty Start Date End Date Wilfred Polanco MD [address] [place] [address] PCP - General Family Medicine 08/17/23 Stephanie Dumont NP [address] [place] [address] [facility] 10/09/23 12/07/70 Stephanie Dumont NP [address] [place] [address] Nurse Practitioner Family Medicine 04/09/23 Team Status: Active Member Role Status Dates Stephanie Dumont Primary Care Provider Active Sta rt: February 12, 2024 Jose Jarrett DO Attending Provider Active Sta rt: February 12, 2024 Team Status: Inactive Member Role Status Dates Simon Zuniga MD Attending Provider Active Start: April 16, 2024 End: April 16, 2024 Fleshing Machine Operator Relationship Specialty Start Date End Date Stephanie Dumont PCP - General 04/20/23 Fleshing Machine Operator Relationship Specialty Start Date End Date Wilfred Polanco MD [address] [place] [address] PCP - General Family Medicine 08/17/23 Stephanie Dumont NP [address] [place] [address] PCP - [facility] 10/09/23 12/07/70 Stephanie Dumont NP [address] [place] [address] Nurse Practitioner Family Medicine 04/09/23 Fleshing Machine Operator Relationship Specialty Start Date End Date Stephanie Dumont NP [address] [place] [address] [facility] 10/09/23 12/07/70 Unallocated, Cayla Miller MD [address] [place] [place] [address] PCP - General Family Medicine 04/24/24 Stephanie Dumont NP [address] [place] [address] Nurse Practitioner Family Medicine 04/09/23 Fleshing Machine Operator Relationship Specialty Start Date End Date Stephanie Dumont NP [address] [place] [address] [facility] 10/09/23 12/07/70 Stephanie Dumont NP [address] [place] [address] Nurse Practitioner Family Medicine 04/09/23 Fleshing Machine Operator Relationship Specialty Start Date End Date Stephanie Dumont NP [address] [place] [address] PCP - [facility] 10/09/23 12/07/70 Wilfred Polanco MD [address] [place] [address] PCP - General Family Medicine 05/13/24 Stephanie Dumont NP [address] [place] [address] Nurse Practitioner Family Medicine 04/09/23 Fleshing Machine Operator Relationship Specialty Start Date End Date Stephanie Dumont NP [address] [place] [address] [facility] 10/09/23 12/07/70 Wilfred Polanco MD [address] [place] [address] PCP - General Family [facility] 05/13/24 Stephanie Dumont NP [address] [place] [address] Nurse Practitioner Family Medicine 04/09/23 Fleshing Machine Operator Relationship Specialty Start Date End Date Stephanie Dumont NP [address] [place] [address] [facility] 10/09/23 12/07/70 Wilfred Polanco MD [address] [place] [address] PCP - General Family Medicine 05/13/24 Stephanie Dumont NP [address] [place] [address] Nurse Practitioner Family Medicine 04/09/23 Fleshing Machine Operator Relationship Specialty Start Date End Date Stephanie Dumont NP [address] [place] [address] [facility] 10/09/23 12/07/70 Wilfred Polanco MD [address] [place] [address] PCP - General Family Medicine 05/13/24 Stephanie Dumont NP [address] [place] [address] Nurse Practitioner Family Medicine 04/09/23 Fleshing Machine Operator Relationship Specialty Start Date End Date Stephanie Dumont NP [address] [place] [address] [facility] 10/09/23 12/07/70 Wilfred Polanco MD [address] [place] [address] PCP - General Family Medicine 05/13/24 Stephanie Dumont NP [address] [place] [address] Nurse Practitioner Family Medicine 04/09/23 Fleshing Machine Operator Relationship Specialty Start Date End Date Stephanie Dumont NP [address] [place] [address] [facility] 10/09/23 12/07/70 Wilfred Polanco MD [address] [place] [address] PCP - General Family Medicine 05/13/24 Stephanie Dumont NP [address] [place] [address] Nurse Practitioner Family Medicine 04/09/23 Fleshing Machine Operator Relationship Specialty Start Date End Date Stephanie Dumont NP [address] [place] [address] PCP - [facility] 10/09/23 12/07/70 Wilfred Polanco MD [address] [place] [address] PCP - General Family Medicine 05/13/24 Stephanie Dumont NP [address] [place] [address] Nurse Practitioner Family Medicine 04/09/23 Fleshing Machine Operator Relationship Specialty Start Date End Date Setphanie Dumont PCP - General 04/20/23 Fleshing Machine Operator Relationship Specialty Start Date End Date Wilfred Polanco MD [address] [place] [address] PCP - General Family Medicine 08/17/23 Stephanie Dumont NP [address] [place] [address] PCP - [facility] 10/09/23 12/07/70 Stephanie Dumont NP [address] [place] [address] Nurse Practitioner Family Medicine 04/09/23 Fleshing Machine Operator Relationship Specialty Start Date End Date Wilfred Polanco MD [address] [place] [address] PCP - General Family Medicine 08/17/23 Stephanie Dumont NP [address] [place] [address] PCP - [facility] 10/09/23 12/07/70 Stephanie Dumont NP [address] [place] [address] Nurse Practitioner Family Medicine 04/09/23 Fleshing Machine Operator Relationship Specialty Start Date End Date Wilfred Polanco MD [address] [place] [address] PCP - General Family Medicine 08/17/23 Stephanie Dumont NP [address] [place] [address] PCP - [facility] 10/09/23 12/07/70 Stephanie Dumont NP [address] [place] [address] Nurse Practitioner Family Medicine 04/09/23 Fleshing Machine Operator Relationship Specialty Start Date End Date Wilfred Polanco MD [address] [place] [address] PCP - General Family Medicine 08/17/23 Stephanie Dumont NP [address] [place] [address] PCP - [facility] 10/09/23 12/07/70 Stephanie Dumont NP [address] [place] [address] Nurse Practitioner Family Medicine 04/09/23 Fleshing Machine Operator Relationship Specialty Start Date End Date Wilfred Polanco MD [address] [place] [phone] PCP - General Family Medicine 08/17/23 Stephanie Dumont NP [address] [place] [phone] [facility] 10/09/23 12/07/70 Stephanie Dumont NP [address] [place] [phone] Nurse Practitioner Family Medicine 04/09/23 Fleshing Machine Operator Relationship Specialty Start Date End Date Wilfred Polanco MD [address] [place] [phone] PCP - General Family Medicine 08/17/23 Stephanie Dumont NP [address] [place] [phone] [facility] 10/09/23 12/07/70 Stephanie Dumont NP [address] [place] [phone] Nurse Practitioner Family Medicine 04/09/23 Fleshing Machine Operator Relationship Specialty Start Date End Date Wilfred Polanco MD [address] [place] [phone] PCP - General Family Medicine 08/17/23 Stephanie Dumont NP [address] [place] [phone] PCP - [facility] 10/09/23 12/07/70 Stephanie Dumont NP [address] [place] [phone] Nurse Practitioner Family Medicine 04/09/23 Fleshing Machine Operator Relationship Specialty Start Date End Date Wilfred Polanco MD [address] [place] [phone] PCP - General Family Medicine 08/17/23 Stephanie Dumont NP [address] [place] [phone] PCP - [facility] 10/09/23 12/07/70 Stephanie Dumont NP [address] [place] [phone] Nurse Practitioner Family Medicine 04/09/23 Fleshing Machine Operator Relationship Specialty Start Date End Date Stephanie Dumont PCP - General 04/20/23 Fleshing Machine Operator Relationship Specialty Start Date End Date Stephanie Dumont PCP - General 04/20/23 Fleshing Machine Operator Relationship Specialty Start Date End Date Stephanie Dumont NP [address] [place] [phone] PCP - [facility] 10/09/23 12/07/70 Wilfred Polanco MD [address] [place] [phone] PCP - General Family Medicine 05/13/24 Stephanie Dumont NP [address] [place] [phone] Nurse Practitioner Family Medicine 04/09/23 Fleshing Machine Operator Relationship Specialty Start Date End Date Stephanie Dumont NP [address] [place] [phone] PCP - [facility] 10/09/23 12/07/70 Wilfred Polanco MD [address] [place] [phone] PCP - General Family Medicine 05/13/24 Stephanie Dumont NP [address] [place] [phone] Nurse Practitioner Family Medicine 04/09/23 Fleshing Machine Operator Relationship Specialty Start Date End Date Stephanie Dumont PCP - General 04/20/23 Fleshing Machine Operator Relationship Specialty Start Date End Date Stephanie Dumont NP [address] [place] [phone] [facility] 10/09/23 12/07/70 Wilfred Polanco MD [address] [place] [phone] PCP - General Family Medicine 05/13/24 Stephanie Dumont NP [address] [place] [phone] Nurse Practitioner Family Medicine 04/09/23 Fleshing Machine Operator Relationship Specialty Start Date End Date Stephanie Dumont NP [address] [place] [phone] PCP - [facility] 10/09/23 12/07/70 Wilfred Polanco MD [address] [place] [phone] PCP - General Family Medicine 05/13/24 Stephanie Dumont NP [address] [place] [phone] Nurse Practitioner Family Medicine 04/09/23 Fleshing Machine Operator Relationship Specialty Start Date End Date Stephanie Dumont PCP - General 04/20/23 Fleshing Machine Operator Relationship Specialty Start Date End Date Stephanie Dumont PCP - General 04/20/23 Fleshing Machine Operator Relationship [facility]ty Start [facility] - [facility] 04/20/23 Fleshing Machine Operator Relationship Specialty Start Date End Date [facility] - General 04/20/23 Fleshing Machine Operator Relationship Specialty Start Date End Date Stephanie Dumont PCP - General 04/20/23 Fleshing Machine Operator Relationship Specialty Start Date End Date Stephanie Dumont NP [address] [place] [phone] [facility] 10/09/23 12/07/70 Wilfred Polanco MD [address] [place] [phone] PCP - General Family Medicine 05/13/24 Stephanie Dumont NP [address] [place] [phone] Nurse Practitioner Family Medicine 04/09/23 Fleshing Machine Operator Relationship Specialty Start Date End Date Stephanie Dumont PCP - General 04/20/23 Fleshing Machine Operator Relationship Specialty Start Date End Date Stephanie Dumont NP [address] [place] [phone] PCP - [facility] 10/09/23 12/07/70 Wilfred Polanco MD [address] [place] [phone] PCP - General Family Medicine 05/13/24 Stephanie Dumont NP [address] [place] [phone] Nurse Practitioner Family Medicine 04/09/23 Fleshing Machine Operator Relationship Specialty Start Date End Date Stephanie Dumont NP [address] [place] [phone] PCP - [facility] 10/09/23 12/07/70 Wilfred Polanco MD [address] [place] [phone] PCP - General Family Medicine 05/13/24 Stephanie Dumont NP [address] [place] [address] Nurse Practitioner Family Medicine 04/09/23 Goals (unrecognized [...] pain scores based on patient preference? Yes 8083 (Given - Provid er: Pamela Paul RN) [...] % injection (CANCELED) As needed, Starting on 6/10/24 at 0907, Intraprocedure 0907 (Given - Provid [...] BE BASED ON THE PRIMARY CLINICAL RECORDS. [facility]. provides no warranty or guarantee of the accuracy or completeness of information in this document.
[2024-12-26] MEDS: METOPROLOL SUCCINATE 25 MG TAB.ER.24H 12.5 MG PO (08:26)
--- NOTE | 2024-12-26 09:10 | CM.NOTE ---
Rounds made with Dr. Zuluaga, discussed plan of care with pt. Pt will get another liter of fluid today and possible discharge to home tomorrow. Pt will need a Chem in one week after discharge, f/u with nephrology and PCP
[2024-12-26] MEDS: LACTATED RINGER'S SOLUTION 1,000 ML 50 ML IV (10:14)
[2024-12-26 11:09] LABS: Cryptosporidium EIA Negative (Negative); Giardia lamblia Ag, EIA Negative (Negative)
--- NOTE | 2024-12-26 11:10 | P.IMPN_ITS ---
Progress Note: A&P Assessment and Plan (1) DARYL (acute kidney injury): (2) Dehydration: (3) Prerenal azotemia: (4) Diarrhea: (5) Idiopathic thrombocytopenia: (6) HTN (hypertension): (7) Osteoporosis: (8) Thyroid nodule: (9) DARYL (acute kidney injury): (10) Acute dehydration: (11) Diarrhea: Plan DARYL in the setting of Pre-renal Azotemia and Dehydration from an acute diarrheal GI illness CT abdomen pelvis showed no obstructive uropathy -Admit pt to medical floor with telemetry -Start NS 50 ml/hr and pt can eat and drink -Awaiting Stool studies, if negative C. diff I will start her on some loperamide -I reconciled pt's medications, I held her spironolactone, HCTZ, losartan and will keep her metoprolol -Discussed the plan of management with the pt and her daughter -Given her thrombocytopenia, I will start her on SCDs instead of HSQ 12/26/2024 Creatinine improving. BP holding, pt is making satisfactory urine output. Will give additional LR 50 ml/hr for a total of 1 liter. I spoke to her environmental web crawler, Dr. Dobbs, who recommended restarting Tavalisse on discharge, he is okay with holding the medicine for today. Discussed the plan with the pt and her son. Answered all her questions, Repeating CMP in am to check renal panel. Internal Medicine - PN: Subj Subjective Interval history: Pt seen and examined at bedside. Accompanied by her son. No fever or chills. She is making urine, and her creatinine improved. Cooperative and pleasant. Exam Narrative Exam Narrative: General: The patient appears well and in no apparent distress. Patient is resting comfortably in bed. Very cooperative and pleasant. Skin: Warm, dry, no pallor noted. There is no rash noted. No petechiae, purpura. Head: Normocephalic, atraumatic Eye: Normal conjunctiva, no drainage, EOMI. PERRL Ears, Nose, Mouth, and Throat: oral mucosa is dry. Nares patent. Mouth without vesicles. Cardiovascular: Regular Rate and Rhythm, no murmur, gallop, rub. Patient has no tenderness to palpation to bilateral Anterior, lateral, posterior chest wall. Patient has no reproducible tenderness to palpation to respiratory: Patient is in no distress, no accessory muscle use, lungs are clear to auscultation, no wheezing, rales or rhonchi Back: non-tender, no CVA tenderness bilaterally to percussion GI: Soft, obese, no tenderness to palpation, no masses appreciated. No rebound, guarding, or rigidity noted. No distention Musculoskeletal: Patient has full range of motion of all of the extremities, no motor, sensory, or focal neurological deficits Neurological: A&O x4, normal speech Constitutional Vital Signs, click to edit/add: Last Vital Signs Temp 98.1 F 12/26/24 08:28 Pulse 66 12/26/24 10:00 Resp 16 12/26/24 08:28 BP 155/79 H 12/26/24 08:28 Pulse Ox 96 12/26/24 08:28 O2 Del Method Room Air 12/26/24 08:28 Internal Medicine - PN: Obj Da Labs Labs: Laboratory Results - last 24 hr 12/25/24 12/25/24 12/25/24 12:40 14:05 17:00 WBC 5.4 RBC 3.55 L Hgb 11.3 L Hct 36.0 MCV 101.4 H MCH 31.8 MCHC 31.4 RDW 14.2 Plt Count 197 MPV 9.3 L Neut % (Auto) 52.7 Lymph % (Auto) 42.8 [place] % (Auto) 3.2 Eos % (Auto) 0.7 L Baso % (Auto) 0.4 Neut # (Auto) 2.8 Lymph # (Auto) 2.3 [place] # (Auto) 0.2 L Eos # (Auto) 0.0 Baso # (Auto) 0.0 Abs Immat Gran (auto) 0.01 Imm/Tot Granulo (auto) 0.2 Sodium 137 Potassium 4.7 Chloride 107 Carbon Dioxide 17.0 L Anion Gap 17.7 BUN 68.0 H Creatinine 2.48 H Est GFR ( Amer) 23 L Est GFR (Non-Af Amer) 19 L BUN/Creatinine Ratio 27.4 Glucose 106 Lactate 1.0 Calcium 9.0 Total Bilirubin 0.6 AST 27 ALT 27 Alkaline Phosphatase 96 Troponin I High Sens 6.3 Total Protein 8.0 Albumin 3.3 L Globulin 4.7 Albumin/Globulin Ratio 0.7 Urine Color Lt. yellow Urine Clarity Clear Urine pH 6.0 Ur Specific [place] 1.015 Urine Protein Negative Urine Glucose (UA) Negative Urine Ketones Negative Urine Occult Blood Negative Urine Nitrite Negative Urine Bilirubin Negative Urine Urobilinogen 0.2 Ur Leukocyte Esterase Negative Urine RBC None seen Urine WBC None seen Ur Squamous Epith Cells Rare Urine Crystals None seen Urine Bacteria Trace A Urine Casts None seen Urine Mucus None seen Ur Culture Indicated? No Ur Random Creatinine 51.70 Ur Random Sodium 106 H Stool Occult Blood Negative Stl Cryptosporidium Ag Negative Giardia lamblia Ag Negative C. difficile Toxin PCR Negative 12/25/24 12/26/24 18:37 05:27 WBC 4.8 RBC 3.15 L Hgb 10.1 L Hct 32.2 L MCV 102.2 H MCH 32.1 MCHC 31.4 RDW 14.3 Plt Count 173 MPV 9.2 L Neut % (Auto) 48.4 Lymph % (Auto) 46.0 [place] % (Auto) 4.0 Eos % (Auto) 1.0 Baso % (Auto) 0.4 Neut # (Auto) 2.3 Lymph # (Auto) 2.2 [place] # (Auto) 0.2 L Eos # (Auto) 0.1 Baso # (Auto) 0.0 Abs Immat Gran (auto) 0.01 Imm/Tot Granulo (auto) 0.2 Sodium 141 142 Potassium 4.9 4.8 Chloride 111 H 112 H Carbon Dioxide 17.7 L 17.6 L Anion Gap 17.2 17.2 BUN 56.0 H 47.0 H Creatinine 1.78 H 1.43 H Est GFR ( Amer) 34 L 43 L Est GFR (Non-Af Amer) 28 L 36 L BUN/Creatinine Ratio 31.5 32.9 Glucose 105 88 Lactate Calcium 8.2 L 8.3 L Total Bilirubin 0.3 AST 17 ALT 20 Alkaline Phosphatase 79 Troponin I High Sens Total Protein 6.6 Albumin 2.6 L Globulin 4.0 Albumin/Globulin Ratio 0.7 Urine Color Urine Clarity Urine pH Ur Specific [place] Urine Protein Urine Glucose (UA) Urine Ketones Urine Occult Blood Urine Nitrite Urine Bilirubin Urine Urobilinogen Ur Leukocyte Esterase Urine RBC Urine WBC Ur Squamous Epith Cells Urine Crystals Urine Bacteria Urine Casts Urine Mucus Ur Culture Indicated? Ur Random Creatinine Ur Random Sodium Stool Occult Blood Stl Cryptosporidium Ag Giardia lamblia Ag C. difficile Toxin PCR
[2024-12-27] VITALS (7 sets, daily range): BP systolic 154–156; BP diastolic 81–82; PULSE 63–72; TEMP 36.7–36.9; O2SAT 97
[2024-12-27 05:25] LABS: Eosinophils Percent Auto 0.6 % (0.9-7.0); Hematocrit 31.2 % (36.0-48.0); Hemoglobin 9.8 g/dL (12.0-16.0); Immature Granulocytes Abs Auto 0.01 10^3/uL (0.00-0.03); Immature Granulocytes Pct Auto 0.3 % (0.0-0.5); Lymphocytes Absolute Auto 1.5 10^3/uL (1.2-3.8); Mean Corpuscular HGB Conc 31.4 g/dL (29.9-35.2); Mean Corpuscular Hemoglobin 31.6 pg (26.7-34.0); Mean Corpuscular Volume 100.6 fL (81.0-99.0); Mean Platelet Volume 9.3 fL (9.5-13.5); Monocytes Absolute Auto 0.2 10^3/uL (0.3-0.8); Monocytes Percent Auto 5.1 % (1.7-12.0); Neutrophils Absolute Auto 1.8 10^3/uL (1.4-6.5); Platelet Count 159 10^3/uL (150-450); Red Cell Distribution Width 14.5 % (11.0-15.0); White Blood Count 3.5 10^3/uL (4.0-11.0)
[2024-12-27 05:51] LABS: Alanine Aminotransferase 18 U/L (14-59); Albumin Globulin Ratio 0.6; Albumin Level 2.6 g/dL (3.4-5.0); Alkaline Phosphatase 79 U/L (46-116); Anion Gap 15.1; Aspartate Amino Transferase 17 U/L (15-37); Bilirubin Total 0.4 mg/dL (0.2-1.0); Calcium 8.7 mg/dL (8.5-10.1); Chloride 112 mmol/L (98-107); Estimated GFR (African America >60 (>=60 mL/min/1.73m^2); Estimated GFR (Non-African Ame 50 (>=60 mL/min/1.73m^2); Globulin 4.1 g/dL; Glucose 88 mg/dL (74-106); Magnesium 2.1 mg/dL (1.8-2.4); Potassium 4.1 mmol/L (3.5-5.1); Sodium 141 mmol/L (136-145); Total Protein 6.7 g/dL (6.4-8.2)
[2024-12-27] MEDS: METOPROLOL SUCCINATE 25 MG TAB.ER.24H 12.5 MG PO (08:52)
--- NOTE | 2024-12-27 09:30 | CM.NOTE ---
Rounds made with Dr. Zuluaga, pt will discharge today and f/u with PCP and Dr. Sarah. Discussed with pt about lab work prior to seeing Dr. Sarah. Pt will be given outpatient lab work at discharge for chemistry. Dr. Zuluaga also spoke with pt's manager wound regarding reconcile of discharge medications. Pt also has appt with Dr. Dobbs on January 03.
--- NOTE | 2024-12-27 11:03 | P.DS_ITS ---
DS: Providers Provider Date of admission: 12/25/24 16:31 Primary care physician: Stephanie Dumont NP Consults: 12/25/24 Consult to Dietitian Routine Reason for consultation: weight loss dt diarrhea 12/25/24 18:10 Occupational Therapy Eval and Treat Routine Reason for consultation: assess functionality Physical Therapy Eval and Treat Routine Reason for consultation: assess funcionality Anticipated date of discharge: 12/27/24 DS: Diagnosis Discharge Diagnosis (1) DARYL (acute kidney injury): (2) Dehydration: (3) Prerenal azotemia: (4) Diarrhea: (5) Idiopathic thrombocytopenia: (6) HTN (hypertension): (7) Osteoporosis: (8) Thyroid nodule: (9) Acute dehydration: Plan As above DS: Summary Hospital Course Hospital Course: This is a 74 y.o female with past medical hx of 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 Hx obtained from the pt's chart, pt and daughter at bedside, and ED staff. She states that 1 week ago, described as watery diarrhea with no mucus or blood. Started to form yesterday however still having 3-5 times bouts of diarrhea. She did not have any recent cookout or food intake prior to the onset of symptoms, no recent antibiotic use, recent traveling, recent change in water sources. No sick contacts with similar presentation. No fever no chills no nausea no vomiting no abdominal pain. No change urinary or bowel habits. Denies any NSAID intake prior to the onset of the symptoms denies taking any new or diffe rent medication for the last few weeks prior to the onset of the symptoms in the ED, patient's blood pressure, heart rate, oxygen saturation, pulse were all normal. She was hemodynamically stable in terms of her vital signs. Labs showed no leukocytosis, hemoglobin at 11.3 with MCV 100.4 which similar to her baseline. Platelets were 191,000. She did have bicarb of 17 with no anion gap, BUN was 68 and creatinine of 2.48, clearly the range from her baseline with creatinine of 1.4 back in February 2024, her potassium was 4.7, and patient is making urine. In the ED, patient received 2 L of IV fluid and was started on 150 mL/h for a total of 1 L. DARYL in the setting of Pre-renal Azotemia and Dehydration from an acute diarrheal GI illness CT abdomen pelvis showed no obstructive uropathy -Admit pt to medical floor with telemetry -Start NS 50 ml/hr and pt can eat and drink -Awaiting Stool studies, if negative C. diff I will start her on some loperamide -I reconciled pt's medications, I held her spironolactone, HCTZ, losartan and will keep her metoprolol -Discussed the plan of management with the pt and her daughter -Given her thrombocytopenia, I will start her on SCDs instead of HSQ 12/26/2024 Creatinine improving. BP holding, pt is making satisfactory urine output. Will give additional LR 50 ml/hr for a total of 1 liter. I spoke to her towel inspector, Dr. Dobbs, who recommended restarting Tavalisse on discharge, he is okay with holding the medicine for today. Discussed the plan with the pt and her son. Answered all her questions, Repeating CMP in am to check renal panel. 12/27/2024 patient's creatinine is back to her baseline. I had a lengthy discussion with her and her family member about the plan of management. 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 Our nurse is setting up her appointment with [employer] appointment. I spoke Dr. Amos, her waiter/waitress club, he recommended sodium bicarb 650 mg twice daily p.o. until she sees him. Also he recommended to restart her blood pressure medication except for spironolactone which she has to stop. I also spoke to her towel inspector and she will be back on her hematology medication Tavalisse, starting tomorrow. Patient has an appointment with Dr. Rivera from hematology in a week from now as well. She understands agrees with the current management. I encouraged her to stay hydrated. Patient is not having any diarrhea anymore. She was appreciative those efforts Status at Discharge Overall status at discharge: patient is back to baseline Time Spent with Patient Time attestation: Total time spent providing and/or coordinating discharge services: Exam Narrative Exam Narrative: General: The patient appears well and in no apparent distress. Patient is resting comfortably in bed. Very cooperative and pleasant. Skin: Warm, dry, no pallor noted. There is no rash noted. No petechiae, purpura. Head: Normocephalic, atraumatic Eye: Normal conjunctiva, no drainage, EOMI. PERRL Ears, Nose, Mouth, and Throat: oral mucosa is dry. Nares patent. Mouth without vesicles. Cardiovascular: Regular Rate and Rhythm, no murmur, gallop, rub. Patient has no tenderness to palpation to bilateral Anterior, lateral, posterior chest wall. Patient has no reproducible tenderness to palpation to respiratory: Patient is in no distress, no accessory muscle use, lungs are clear to auscultation, no wheezing, rales or rhonchi Back: non-tender, no CVA tenderness bilaterally to percussion GI: Soft, obese, no tenderness to palpation, no masses appreciated. No rebound, guarding, or rigidity noted. No distention Musculoskeletal: Patient has full range of motion of all of the extremities, no motor, sensory, or focal neurological deficits Neurological: A&O x4, normal speech Constitutional Vital Signs, click to edit/add: Last Vital Signs Temp 98.1 F 12/27/24 08:54 Pulse 63 12/27/24 10:00 Resp 16 12/27/24 08:54 BP 156/82 H 12/27/24 08:54 Pulse Ox 97 12/27/24 08:54 O2 Del Method Room Air 12/27/24 08:54 DS: Data Data Completed and Pending Labs on day of discharge: Labs from last 24 hours 12/27/24 12/25/24 04:58 14:05 WBC 3.5 L RBC 3.10 L Hgb 9.8 L Hct 31.2 L MCV 100.6 H MCH 31.6 MCHC 31.4 RDW 14.5 Plt Count 159 MPV 9.3 L Neut % (Auto) 52.0 Lymph % (Auto) 42.0 [place] % (Auto) 5.1 Eos % (Auto) 0.6 L Baso % (Auto) 0.0 L Neut # (Auto) 1.8 Lymph # (Auto) 1.5 [place] # (Auto) 0.2 L Eos # (Auto) 0.0 Baso # (Auto) 0.0 Abs Immat Gran (auto) 0.01 Imm/Tot Granulo (auto) 0.3 Sodium 141 Potassium 4.1 Chloride 112 H Carbon Dioxide 18.0 L Anion Gap 15.1 BUN 31.0 H Creatinine 1.07 H Est GFR ( Amer) >60 Est GFR (Non-Af Amer) 50 L BUN/Creatinine Ratio 29.0 Glucose 88 Calcium 8.7 Magnesium 2.1 Total Bilirubin 0.4 AST 17 ALT 18 Alkaline Phosphatase 79 Total Protein 6.7 Albumin 2.6 L Globulin 4.1 Albumin/Globulin Ratio 0.6 Stl Cryptosporidium Ag Negative Giardia lamblia Ag Negative Discharge Plan Discharge Disposition: Home, Self-Care Condition: Good Discharge Medications: New sodium bicarbonate 650 mg tablet 650 mg PO BID 15 Days Qty: 30 0RF Continued ergocalciferol (vitamin D2) 1,250 mcg (50,000 unit) capsule 1,250 mcg PO QWEEK Tavalisse 100 mg tablet 100 mg PO BID hydrochlorothiazide 25 mg tablet 25 mg PO DAILY pilocarpine HCl 5 mg tablet 5 mg PO TID losartan 25 mg tablet 50 mg PO .QHS cyclobenzaprine 5 mg tablet 5 mg PO .QHS metoprolol succinate 25 mg tablet extended release 24 hr 12.5 mg PO DAILY Discontinued spironolactone 25 mg tablet 25 mg PO DAILY Activity: as per physical therapy Diet: other Diet Detail: Renal diet Print Language: [place] Forms: Portal Instructions Follow Up Appointments: January 06 @ 11:30am with Stephanie Dumont, DIE CASTING MACHINE MAINTAINER [phone] January 27 @ 2pm with Dr. Sarah (nephrology) [address] [place] [employer], [place] [address]alicia Figueroa, [address] [phone]
[2024-12-27 18:11] LABS: Lactoferrin, Fecal, Quant. 2.28 ug/mL(g) (0.00-7.24)
--- NOTE | 2024-12-30 13:43 | CM.DCFOLLOWU ---
1st attempt 12/30/24, no answer
--- NOTE | 2024-12-31 12:13 | CM.DCFOLLOWU ---
Person spoke with: patient How are you feeling? well but has some weakness How is your pain?none Did you understand your discharge instructions?yes Do you have any questions about your discharge instructions?no Were you given any prescriptions at discharge?yes Were you able to get your prescriptions filled?yes Do you understand how to take your medications as ordered?yes Do you have any questions about your follow up appointment and do you plan to keep your follow up appointment?no questions, will follow up Is there anything else that you would like to discuss? no Questions/Comments/Concerns/Other: pt is to have pre-surgery blood work done and wanted to know if blood work for nephrology could be used, pt advised to call nephrologists office for guidance
[2024-12-31 17:09] LABS: Ova + Parasite Exam Final report (.)
== END 2024-12-27 12:06 | disposition home or self-care (01) | DRG 683 ==
LOC: ER 15:41 → MS 21:22
PROVIDERS: Admitting Provider Student in an Organized Health Care Education/Training Program; Emergency Provider Emergency Medicine; PCP Nurse Practitioner; Visit Provider Student in an Organized Health Care Education/Training Program
DX: N17.9 Acute kidney failure, unspecified (principal); D69.3 Immune thrombocytopenic purpura; E86.0 Dehydration; R19.7 Diarrhea, unspecified; I12.9 Hypertensive chronic kidney disease with stage 1 through stage 4 chronic kidney disease, or unspecified chronic kidney disease; N18.30 Chronic kidney disease, stage 3 unspecified; Z79.899 Other long term (current) drug therapy; G47.30 Sleep apnea, unspecified; R53.1 Weakness; D73.1 Hypersplenism; E04.1 Nontoxic single thyroid nodule; M81.0 Age-related osteoporosis without current pathological fracture; Z90.710 Acquired absence of both cervix and uterus; Z90.49 Acquired absence of other specified parts of digestive tract; N28.1 Cyst of kidney, acquired; F17.200 Nicotine dependence, unspecified, uncomplicated; R79.89 Other specified abnormal findings of blood chemistry; E66.9 Obesity, unspecified; Z68.31 Body mass index [BMI] 31.0-31.9, adult
CPT/HCPCS: 36415; 74176; 80048; 80053; 81001; 82570; 83605; 83631; 83735; 84300; 84484; 85025; 87045; 87046; 87177; 87209; 87427; 87493; 93005; 96360; 96361; 97162; 97165; 99285; 99406; G0328

== ENCOUNTER 2025-01-15 15:17 | Outpatient (OUT) | payer MEDICARE, SELFPAY ==
--- NOTE | 2025-01-15 15:22 | XR_ITS ---
[address] [address] Patient Name: JASPREET LEO MRN: [id number] date: 1950 Sex: F Assigned Patient Location: [facility] Current Patient Location: [facility] Accession/Order Number: [id number] Exam Date: 01/15/2025 16:23 Report Date: 01/15/2025 16:25 At the request of: ALEXI TOPETE NP Procedure: XR lumbar spine 2-3V 3 views Lumbar Spine HISTORY: Chronic bilateral leg weakness and greater on the left COMPARISON: None POSTSURGICAL CHANGES: None BONY ALIGNMENT: Adequate HYPERMOBILITY:No bending imaging. LISTHESIS:Mild degenerative listhesis FRACTURE: None DEGENERATIVE CHANGES: Moderate lower lumbar spondylosis. Extensive lower lumbar facet degeneration SOFT TISSUES: 3.9 cm fusiform aneurysmal dilatation of the infrarenal abdominal aorta. BONY MINERALIZATION:Diffuse osteopenia XR/XR lumbar spine 2-3V IMPRESSION: Degenerative changes greatest at the lower lumbar facets. Diffuse osteopenia. 3.9 cm fusiform aneurysmal dilatation of abdominal aorta. Impression dictated by: Valentin Peralta M.D. 01/15/2025 4:25 PM Dictation Location: [employer] Electronically authenticated by: [id number] Y Date: 01/15/2025 16:25
== END 2025-01-15 15:18 | disposition home or self-care (01) ==
LOC: RAD 15:19
PROVIDERS: PCP Nurse Practitioner; Visit Provider Nurse Practitioner
DX: R29.898 Other symptoms and signs involving the musculoskeletal system (principal); M47.816 Spondylosis without myelopathy or radiculopathy, lumbar region; M51.369 Other intervertebral disc degeneration, lumbar region without mention of lumbar back pain or lower extremity pain
CPT/HCPCS: 72100

== ENCOUNTER 2025-03-19 11:06 | Outpatient (OUT) | payer MEDICARE, SELFPAY ==
--- NOTE | 2025-03-19 11:10 | US_ITS ---
The [address] [address] Patient Name: JASPREET LEO MRN: [id number] date: 1950 Sex: F Assigned Patient Location: [place] Current Patient Location: [place] Accession/Order Number: [id number] Exam Date: 03/19/2025 11:12 Report Date: 03/19/2025 11:54 At the request of: MAR MAYO MD Procedure: US thyroid THYROID ULTRASOUND CLINICAL DATA: Follow-up thyroid nodularity COMPARISON: 09/23/2024 The right thyroid lobe measures 4.4 x 2.0 x 1.8 cm. The left lobe measures 4.0 x 1.5 x 1.5 cm. The isthmus measures 2 mm. Thyroid echotexture is heterogeneous. At the superior pole on the right, there is redemonstration of a heterogeneous nodule measuring 13 x 9 x 11 mm. These measurements are smaller than on the prior. Inferior to it, there is a second heterogeneous nodule measuring 2.2 x 1.6 x 1.9 cm. The longitudinal measurement is slightly larger though this may be related to difference in slice selection since there are other images where the longitudinal measurement is just over 2 cm. Both of these thyroid nodules are TI-RADS 3. There is a hypoechoic nodule at the inferior pole measuring 6 x 4 x 8 mm (TI-RADS 4). This is not definitely seen on the comparison images. On the left, there is a colloid cyst at the superior pole measuring 6 x 4 x 7 mm. A heterogeneous nodule is again visualized at the midpole measuring 2.2 x 12 x 14 mm (TI-RADS 3). This has not significantly changed. US/US thyroid IMPRESSION: SIMILAR APPEARANCE OF THYROID NODULARITY DOCUMENTED PREVIOUSLY. POSSIBLE NEW SUBCENTIMETER HYPOECHOIC NODULE ON THE RIGHT. Impression dictated by: Doris Savage M.D. 03/19/2025 11:54 AM Dictation Location: [place] [address] Electronically authenticated by: [id number] Y Date: 03/19/2025 11:54
--- OUTSIDE RECORDS SUMMARY | 2025-03-19 11:15 | XMS_ITS | CCD ---
Author Organization [facility] Care Team Providers Care Tab Builder Name Role Phone COTY WRIGHT Unavailable Unavailable COTY WRIGHT Unavailable Unavailable VANCE SCHERER Unavailable Unavailable VANCE SCHERER Unavailable Unavailable Unavailable Primary Care Provider Unavailaudrey e Paloma Saldaña Primary Care Provider [phone] Gilson Ceja Unavailable Unavailable Primary Care Provider Unavailabl e Unavailable Primary Care Provider UnavailMD Gilson Galvez Attending Provider NON STAFF Primary Care Provider Unavailabl e True JAIMES, [facility] Primary Care Provider Aichholruben, Stephanie Primary Care Provider Aichholz SEMICONDUCTOR EQUIPMENT TECHNICIAN, Stephanie Unavailable Wilfred Polanco MD Primary Care Provider [phone] Wilfred Polanco MD Primary Care Provider Unavailable Primary Care Provider Unavailabl e Aichholz, Stephanie Primary Care Provider Aichholz, Stephanie Primary Care Provider Unavailabl e Aichholz SEMICONDUCTOR EQUIPMENT TECHNICIAN, Stephanie Unavailable Aichholz SEMICONDUCTOR EQUIPMENT TECHNICIAN, Stephanie Unavailable MD Simon Zuniga Attending Provider Unallocatjabier JAIMES, [place] Provider Primary Care Provi gabriela Simon Zuniga Attending Unavailable Simon Zuniga Admitting Unavailable Gilson Ceja Attending Unavailable Gilson Ceja Admitting Unavailable Wilfred Polanco MD Primary Care Provider DOUG MORRELL Referring Unavailable DOUG MORRELL Attending Unavailable HERSON AVALOS Referring Unavailable MASSIEL BALLARD Attending Unavailable RODNEY GUILLEN Attending Unavailable Unavailable Primary Care Provider EMANI Bolton Attending UnavailSUSANNA Aguila Attending Unavailable SUSANNA GRAF Attending Unavailable AICHHOLRuben, STEPHANIE Attending Unavailable TIMMIMAR Hancock H Attending Unavailable AICHHOLZ, STEPHANIE Attending Unavailable AICHHOLZ, STEPHANIE Attending Unavailable AICHHOLZ, STEPHANIE Attending Unavailable AICHHOLZ, STEPHANIE Attending Unavailable AICHHOLZ, STEPHANIE Attending Unavailable AICHHOLRuben, STEPHANIE Attending Unavailable BLAISE ALEX Referring Unavailable BLAISE ALEX Attending Unavailable AICHHOLZ, STEPHANIE Referring Unavailable AICHHOLZ, STEPHANIE Attending Unavailable JR. DANUTA, HERSON Ramires Attending Unavaila katie AVALOS JR., HERSON Ramires Referring Unavaila ble AICHRICHI, STEPHANIE Attending Unavailable MARIA ESTHER, MAR H Attending Unavailable AICHHOLZ, STEPHANIE Referring Unavailable AICHHOLZ, STEPHANIE J Referring Unavailable [...] Unavailable MASSIEL BALLARD JR Referring Unavai lable AICHHOLZ, STEPHANIE J Primary Care Unavailable MASSIEL BALLARD JR Referring Unavai lable AICHHOLZ, STEPHANIE J Primary Care Unavailable ZEINAB, GILSON Referring Unavailable AICHHOLZ, STEPHANIE J Primary Care Unavailable LESIA, SUSANNA E Referring Unavailable AICHHOLRuben, STEPHANIE Negrete Primary Care Unavailable LESIA, SUSANNA E Referring Unavailable STEPHANIE DUMONT Primary Care Unavailable Gilson Ceja MD Attending Provider Stephanie Dumont Primary Care Provider [phone] Rinku Ramsey MD Unavailable Tim ELECTRIC MOTOR CONTROLS ASSEMBLER-ROUTE SALES MANAGER, Stephanie Jacob Primary Care Provider LESIA, SUSANNA E Admitting Unavailable LESIA, SUSANNA E Attending Unavailable STEPHANIE DUMONT Primary Care Unavailable Stephanie Dumont Attending Provider [phone] ABHYANKAR, RINKU Referring Unavailable ABHYANKAR, RINKU Referring Unavailable ABHYANKAR, RINKU Attending Unavailable ABHYANKAR, RINKU Referring Unavailable ABHYANKAR, RINKU Referring Unavailable ABHYANKAR, RINKU Referring Unavailable JAYDEN CONNELLY Attending Unavailable ABHYANKAR, RINKU Referring Unavailable ABHYANKAR, RINKU Referring Unavailable ABHYANKAR, RINKU Referring Unavailable ABHYANKAR, RINKU Referring Unavailable HONG, LI Attending Unavailable ABHYANKAR, RINKU Referring Unavailable ABHYANKAR, RINKU Referring Unavailable ABHYANKAR, RINKU Attending Unavailable ABHYANKAR, RINKU Referring Unavailable ABHYANKAR, RINKU Referring Unavailable HONG, LI Attending Unavailable ABHYANKAR, RINKU Referring Unavailable ABHYANKAR, RINKU Referring Unavailable ABHYANKAR, RINKU Referring Unavailable ABHYANKAR, RINKU Referring Unavailable JAYDEN CONNELLY Attending Unavailable ABHYANKAR, RINKU Referring Unavailable HONG, LI Attending Unavailable ABHYANKAR, RINKU Referring Unavailable ABHYANKAR, RINKU Referring Unavailable ABHYANKAR, RINKU Attending Unavailable ABHYANKAR, RINKU Referring Unavailable ABHYANKAR, RINKU Referring Unavailable ABHYANKAR, RINKU Referring Unavailable ABHYANKAR, RINKU Referring Unavailable ABHYANKAR, RINKU Referring Unavailable ABHYANKAR, RINKU Referring Unavailable ABHYANKAR, RINKU Referring Unavailable ABHYANKAR, RINKU Referring Unavailable Allergies Allergy Classification Reported Allergen(s) Allergy Type Date of Onset Reaction(s) Facility (1 source) codeine; Translations: [CODEINE PHOSPHATE] Drug Allergy 05-20-20 [facility] Repository (1 source) codeine; Translations: [CODEINE SULFATE] Drug Allergy 05-20-20 [facility] (1 source) VANCOMYCIN AND DERIVATIVES; Translations: [VANCOMYCIN AND DERIVATIVES] Propensity to adverse reactions (disorder) 05-20-20 [facility] (20 sources) Vancomycin; Translations: [VANCOMYCIN] Drug Allergy 03-03-20 16 Unknown, Other [facility] (8 sources) Tetanus Vaccines And Toxoid; Translations: [TETANUS VACCINES AND TOXOID] Drug Allergy 03-03-[address] [facility] (1 source) Tetanus vaccine Drug allergy Unknown [employer] [facility] ALTHIA Other (20 sources) Tetanus Vaccines And Toxoid Drug Allergy 03-03-20 [address] [facility] (4 sources) Tetanus vaccine Drug allergy Unknown [employer] Other (20 sources) Tetanus-Diphth- Acell Pertussis Drug Intolerance 06-06-20 23 [facility] (20 sources) Diphtheria,Pert ussis (Acellular),Tet anus Vaccine; Translations: [DIPHTHERIA,PER TUSSIS (ACELLULAR),TET ANUS VACCINE] Propensity to adverse reactions 06-06-20 23 [facility] (5 sources) tetanus toxoid, adsorbed; Translations: [tetanus toxoid, adsorbed] Allergy to substance 09-20-19 Unknown Reaction [facility] (1 source) Vancomycin Drug Allergy 09-20-19 [facility] Repository Medications Current Medications Medication Drug Class(es) Dates Sig (Normalized) Sig (Original) acetaminophen 500 mg oral tablet (2 sources) Start: 02-05-2025 End: 02-20-2025 take 2 tablets by mouth every eight hours in the evening for pain acetaminophen (Tylenol) 500 mg tablet Indications: Cholesteatoma of left ear Take 2 tablets (1,000 mg) by mouth every 8 hours if needed for mild pain (1 - 3) for up to 15 days. 90 tablet 02/05/2025 3:56 PM EDT 02/05/2025 02/20/2025 Active Start: 12-18-2023 End: 12-18-2023 take 975 mg by mouth once as needed for pain 975 mg, oral, Once, On Mon12/18/23 at 1430, For 1 dose, Recovery & On Unit, If ordered PRN for pain, nurse is permitted to administer this medication for higher pain scores based on patient preference? Yes acetaminophen 325 mg / oxyCODONE hydrochloride 5 mg oral tablet (14 sources) Opioid Agonist Start: 02-05-2025 take 1 tablet by mouth every four hours as needed 1 tablet, oral, Every 4 hours PRN, pain moderate (4-6), second line, Starting on Mon02/05/25 at 1418, Recovery (only), When able to take oral medications., If ordered PRN for pain, nurse is permitted to administer this medication for higher pain scores based on patient preference? Yes Start: 02-12-2024 End: 07-22-2024 take 1 tablet by mouth every six hours as needed oxyCODONE-acetaminophen (PERCOCET) 5-325 mg tablet Take 1 tablet by mouth every 6 hours as needed for pain. 02/12/2024 07/22/2024 Discontinued albuterol 0.83 mg/ml inhalation solution (1 source) beta2-Adrenergic Agonist Start: 02-05-2025 2.5 m g, nebulization, Once as needed, wheezing, Starting on Mon02/05/25 at 1418, For 1 dose, Recovery (only) alendronic acid 70 mg oral tablet (20 sources) Bisphosphonate Start: 06-06-2023 alendronate (F OSAMAX) 70 mg tablet PLEASE SEE ATTACHED FOR DETAILED DIRECTIONS 06/06/2023 Active Start: 06-06-2023 End: 08-21-2024 Alendronate 70 mg tablet Dis continued 1 TAB PO Every morning September 20, 2023 12:00am August 21, 2024 2:23pm [employer] tablet 30 minutes before the first food, beverage or medicine of the day with plain water Orally ONCE A WEEK; Note: Source Status: Taking; Provider: Zeinab Riggins ( ) Start: 06-06-2023 End: 03-26-2025 alendronate (FOSAMAX) 70 mg tablet PLEASE SEE ATTACHED FOR DETAILED DIRECTIONS 06/06/2023 Active Comment on above: PLEASE SEE ATTACHED FOR DETAILED DIRECTIONS benzonatate 100 mg oral capsule (20 sources) Non-narcotic Antitussive Start: 2 End: take 1 capsule by mouth every six hours as needed benzonatate (TESSALON PERLE) 100 mg capsule Take 1 capsule by mouth every 6 hours as needed for cough. 100 capsule 08/30/2024 11:46 AM EST 07/11/2024 Active Comment on above: Take 1 capsule by mo ut every 6 hours as needed for cough. cephalexin 500 mg oral capsule (3 sources) Cephalosporin Antibacterial Start: 5 End: 5 cephALEXin (KEFLEX) 500 mg capsule Take 500 mg by mouth. 02/05/2025 02/15/2025 Active Start: 12-18-2023 End: 12-25-2023 take 1 capsule by mouth three times [...] mg/ml / dexamethasone 1 mg/ml otic suspension (7 sources) Corticosteroid, Quinolone Antimicrobial Start: 02-05-2025 End: 02-24-2025 ciprofloxacin-dexAMETHaso ne (CIPRODEX) 0.3-0.1 % otic suspension 4 drops. 02/05/2025 02/24/2025 Active Start: 02-05-2025 End: 02-24-2025 ciprofloxacin-dexamethasone (CiproDEX) otic suspension Indications: Cholesteatoma of left ear Administer 4 drops into the left ear 2 times a day for 7 days. 7.5 mL 02/05/2025 3:56 PM EDT 02/05/2025 02/24/2025 Active Start: 12-18-2023 End: 01-09-2024 ciprofloxacin-dexamethasone (CiproDEX) otic suspension Indications: Cholesteatoma of left ear Administer 4 drops into affected ear(s) 2 times a day. Start your ear drops on 12/18 and continue until follow up 7.5 mL 12/18/2023 Active cyclobenzaprine hydrochloride 5 mg oral tablet (20 sources) Muscle Relaxant Start: 10-11-2024 End: 01-06-2025 take 1 tablet by mouth once daily at bedtime cyclobenzaprine (FLEXERIL) 5 mg tablet Take 1 tablet by mouth daily at bedtime. 10 tablet 10/11/2024 Active 2 ml droperidol 2.5 mg/ml injection (1 source) Dopamine-2 Receptor Antagonist Start: 02-05-2025 0.625 mg, intravenous, Once as needed, nausea/vomiting, second line, Starting on Mon02/05/25 at 1418, For 1 dose, Recovery (only), Monitor QTc while on therapy (2 lead monitoring) ergocalciferol 1.25 mg oral capsule (20 sources) Provitamin D2 Compound Start: 06-28-2023 End: 01-27-2025 take 1 capsule by mouth every week ergocalciferol 50,000 unit capsule (VITAMIN D2, DRISDOL) Take 1 capsule by mouth one time a week. 06/28/2023 Active Start: 06-28-2023 End: 04-09-2024 take 1 capsule by mouth every week ergocalciferol 50,000 unit capsule (VITAMIN D2, DRISDOL) Take 1 capsule by mouth one time a week. 06/28/2023 Active take [address] [facility] every week ergocalciferol (Vitamin D-2) 1.25 MG (66841 UT) capsule Take 50,000 Units by mouth 1 (one) time per week Active Comment on above: Take [address] [facility] one time a week. 1 ml fentaNYL 0.05 mg/ml injection (1 source) Opioid Agonist Start: 025 12.5 mcg, intravenous, Every 5 min PRN, pain mild (1-3), first line, Starting on Mon02/05/25 at 1418, Recovery (only), Max total of 200 micrograms regardless of dose., If ordered PRN for pain, nurse is permitted to administer this medication for higher pain scores based on patient preference? Yes fostamatinib 100 mg oral tablet (20 sources) Start: 021 End: take 1 tablet by mouth twice daily fostamatinib (TAVALISSE) 100 mg tablet Take 1 tablet by mouth two times a day. 60 tablet 04/05/2024 Active Comment on above: Take 100 mg by mouth twice daily. Take 1 tablet by darling th twice daily for 15 days. Take 1 tablet by darling th twice daily. Take 1 tablet by darling th two times a day. hydroCHLOROthiazide 25 mg oral tablet (20 sources) Thiazide Diuretic Start: 023 End: take 1 tablet by mouth once daily hydroCHLOROthiazide 25 mg tablet Indications: Essential hypertension , Chronic ITP (idiopathic thrombocytopenia) (HCC) , Obstructive sleep apnea syndrome TAKE 1 TABLET BY MOUTH EVERY DAY 90 tablet 3 01/03/2025 Active Start: 07-28-2021 End: 01-17-2022 take 1 [...] ml HYDROmorphone hydrochloride 1 mg/ml prefilled syringe (4 sources) Opioid Agonist Start: 02-05-2025 0.5 mg, intravenous, Every 5 min PRN, pain severe (7-10), first line, Starting on Mon02/05/25 at 1418, Recovery (only), Max total of 4 mg regardless of dose. Start: 02-05-2025 0.2 mg, intrav enous, Every 5 min PRN, pain moderate (4-6), first line, Starting on Mon02/05/25 at 1418, Recovery (only), Max total of 4 mg regardless of dose. Start: 12-18-2023 0.5 mg, intrav enous, Every 5 min PRN, pain severe (7-10), first line, Starting on Mon12/18/23 at 1242, Recovery (only), Max total of 4 mg regardless of dose. Start: 12-18-2023 0.2 mg, intrav enous, Every 5 min PRN, pain moderate (4-6), first line, Starting on 12/18/23 at 1242, Recovery (only), Max total of 4 mg regardless of dose. ibuprofen 200 mg oral tablet (2 sources) Nonsteroidal Anti-inflammatory Drug Start: 02-05-2025 take 2 tablets by mouth every six hours in the evening for pain ibuprofen 200 mg tablet Indications: Cholesteatoma of left ear Take 2 tablets (400 mg) by mouth every 6 hours if needed for moderate pain (4 - 6) for up to 10 days. 80 tablet 02/05/2025 3:56 PM EDT 02/05/2025 Active End: 07-16-2021 take 1 tablet by mouth every six hours as needed ibuprofen (MOTRIN) 200 mg tablet Take 200 mg by mouth every 6 hours as needed. 0 07/16/2021 Discontinued (Discontinued by Patient) Comment on above: Take 200 mg by mouth every 6 hours as needed. labetalol hydrochloride 5 mg/ml injectable solution (1 source) beta-Adrenergic Clarke Start: 5 5 mg, intravenous, Administer over 1 Minutes, Once as needed, systolic blood pressure greater than 180 mmHg, dystolic blood pressure greater than 100 mmHg and heart rate greater than 60 BPM, Starting on Mon02/05/25 at 1418, For 1 dose, Recovery (only) losartan potassium 25 mg oral tablet (20 sources) Angiotensin 2 Receptor Clarke Start: 2 End: 5 take 2 tablets by mouth at bedtime losartan (COZAAR) 25 mg tablet Indications: Hypertension, unspecified type TAKE 2 TABLETS BY MOUTH AT BEDTIME 180 tablet 3 07/19/2024 Active Start: 02-06-2022 End: 03-07-2022 take 2 [...] 12.5 MG PO Once August 21, 2024 1:00am Complies with drug therapy Start: 03-04-2024 End: 04-03-2024 take 1 tablet by mouth once daily metoprolol succinate ER (TOPROL XL) 25 mg 24 hr tablet Take 12.5 mg by mouth once daily. 03/04/2024 Active Start: 03-04-2024 End: 03-31-2025 take 0.5 tablet by mouth once daily metoprolol succinate XL (Toprol-XL) 25 MG 24 hr tablet Indications: Coronary artery disease involving [place] coronary artery of [place] heart without angina pectoris Take 0.5 tablets (12.5 mg) by mouth Daily Do not crush or chew. 45 tablet 1 12/31/2024 03/31/2025 Active naproxen 500 mg oral tablet (5 sources) Nonsteroidal Anti-inflammatory Drug Start: 11-11-2024 take 1 tablet by mouth twice daily as needed naproxen (Naprosyn) 500 MG tablet Take 500 mg by mouth 2 (two) times a day as needed 11/11/2024 Active 2 ml ondansetron 2 mg/ml injection (20 sources) Serotonin-3 Receptor Antagonist Start: 02-05-2025 4 mg, intravenous, Once as needed, nausea/vomiting, first line, Starting on Mon02/05/25 at 1418, For 1 dose, Recovery (only), When administering via IV Push, administer over 3-5 minutes. Start: 02-12-2024 End: 07-22-2024 take 1 tablet [...] via IV Push, administer over 3-5 minutes. oxygen (O2) therapy (1 source) Start: 02-05-2025 inhalation, Continuous - O2/gases, oxygen, Starting on Mon02/05/25 at 1418, Recovery (only), Device: Nasal Cannula, Rate in liters per minute: Other, Custom Value: 1-6 LPM, Keep O2 Sat Above: 92% pilocarpine hydrochloride 5 mg oral tablet (20 sources) Cholinergic Receptor Agonist Start: 11-05-2024 take 1 tablet by mouth three times daily in the evening pilocarpine (SALAGEN) 5 mg tablet Take 1 tablet by mouth three times a day. 90 tablet 3 03/14/2025 2:26 PM EDT 11/05/2024 Active Start: 01-27-2023 End: 10-09-2024 take 1 tablet by mouth three times daily in the evening pilocarpine (SALAGEN) 5 mg tablet Take 1 tablet by mouth three times a day. 90 tablet 3 01/03/2025 2:54 PM EDT 11/05/2024 Active Start: 07-20-2022 End: 10-26-2022 take 1 [...] times daily. TAKE 1 TABLET BY DARLING THREE TIMES A DAY Take 1 tablet by darling th three times a day. promethazine (Phenergan) 6.25 mg in sodium chloride 0.9% 50 mL IV (1 source) Start: 12-18-2023 6.25 mg, intravenous, Administer over 15 Minutes, Once as needed, Nausea/vomiting, second line, Starting on Mon12/18/23 at 1242, For 1 dose, Recovery (only) sodium bicarbonate 650 mg oral tablet (10 sources) Start: 12-27-2024 take 1 tablet by mouth in the morning sodium bicarbonate 650 MG tablet Take 650 mg by mouth in the morning and 650 mg before bedtime. 12/27/2024 Active Completed/Discontinued Medications Medication Drug Class(es) Dates [...] by darling twice daily for 14 days. calcium chloride 0.0014 meq/ml / potassium chloride 0.004 meq/ml / sodium chloride 0.103 meq/ml / sodium lactate 0.028 meq/ml injectable solution (2 sources) Start: 02-05-2025 End: 02-05-2025 take 50 mL intravenously every hour 50 mL/hr, intravenous, Continuous, Starting on Mon02/05/25 at 1445, For 1 hour, Recovery (only) Start: 12-18-2023 take 100 mL intraven ously every hour 100 mL/hr, intravenous, Continuous, Starting on Mon12/18/23 at 1300, Recovery (only) cholecalciferol, vitamin D3, (VITAMIN D3 ORAL) (20 sources) End: 07-22-2024 cholecalciferol, vitamin D3, (VITAMIN D3 ORAL) Take by mouth. 07/22/2024 Discontinued cholecalciferol, vitamin D3, (VITAMIN D3 ORAL) Take by mouth. Active cholecalciferol, vitamin D3, (VITAMIN D3 ORAL) Take by mouth. 0 Active Comment on above: Take by mouth. 0.4 ml darbepoetin toney 0.5 mg/ml prefilled syringe (5 sources) Erythropoiesis- stimulating Agent Start: End: inject 1 dose by subcutaneous injection once 200 mcg, SUBCUTANEOUS, ONCE, 1 dose, On Mon01/31/25 at 1430, Protect from light REFRIGERATE Start: 01-17-2025 End: 01-17-2025 inject 1 dose by subcutaneous injection once 200 mcg, SUBCUTANEOUS, ONCE, 1 dose, On Mon01/17/25 at 1430, Protect from light REFRIGERATE Start: 01-03-2025 End: 01-03-2025 inject 1 dose by subcutaneous injection once 200 mcg, SUBCUTANEOUS, ONCE, 1 dose, On Mon01/03/25 at 1500, Protect from light REFRIGERATE Start: 12-20-2024 End: 12-20-2024 inject 1 dose by subcutaneous injection once 200 mcg, SUBCUTANEOUS, ONCE, 1 dose, On Mon12/20/24 at 1400, Protect from light REFRIGERATE Start: 2024 End: 2024 inject 1 dose by subcutaneous injection once 200 mcg, SUBCUTANEOUS, ONCE, 1 dose, On Mon12/06/24 at 1400, Protect from light REFRIGERATE docusate sodium 50 mg / sennosides, intermediate 8.6 mg oral tablet (1 source) Start: 02-05-2025 End: 02-05-2025 take 1 tablet by mouth once daily sennosides-docusate sodium (Senna with Docusate Sodium) 8.6-50 mg tablet Indications: Cholesteatoma of left ear Take 1 tablet by mouth once daily for 10 days. 10 tablet 02/05/2025 02/05/2025 Discontinued (Stop Taking at Discharge) furosemide 20 mg oral tablet (1 source) Loop Diuretic End: 07-16-2021 furosemide (LASIX) 20 mg tablet Take 20 mg by mouth as needed. 0 07/16/2021 Discontinued (Discontinued by Patient) Comment on above: Take 20 mg by mouth as needed. lisinopril 10 mg oral tablet [...] Patient) Comment on above: Take by mouth. spironolactone 25 mg oral tablet (20 sources) Aldosterone Antagonist Start: 10-09-2024 End: 01-27-2025 take 1 tablet by mouth once daily Spironolactone 25 mg tablet Discontinued 0 .ROUTE .COMPLEX 90 October 09, 2024 11:30am January 27, 2025 1:52pm TAKE 1 TABLET BY MOUTH DAILY Start: 09-07-2022 End: 01-31-2025 take 1 tablet by mouth once daily Spironolactone 25 mg tablet Discontinued 25 MG PO Daily September 20, 2023 12:00am May 16, 2024 10:16am Comment on above: Take 25 mg by mouth once daily. traMADol hydrochloride 50 mg oral tablet (15 sources) Opioid Agonist Start: End: take 1 tablet by mouth every six hours for pain traMADol (Ultram) 50 mg tablet Indications: Cholesteatoma of left ear Take 1 tablet (50 mg) by mouth every 6 hours if needed for severe pain (7 - 10) for up to 5 days. 20 tablet 02/05/2025 02/05/2025 Discontinued (Stop Taking at Discharge) Start: 12-18-2023 End: 07-22-2024 take 1 tablet by mouth every six hours as needed traMADol (ULTRAM) 50 mg tablet Take 50 mg by mouth every 6 hours as needed for pain. 12/18/2023 07/22/2024 Discontinued vitamin b12 1 mg/ml injectable solution (10 sources) Vitamin B12 Start: 03-14-2025 End: 03-14-2025 inject 1 dose by intramuscular injection once 1,000 mcg, INTRAMUSCULAR, ONCE, 1 dose, On Mon03/14/25 at 1430 Start: 01-17-2025 End: 01-17-2025 inject 1 dose by intramuscular injection once 1,000 mcg, INTRAMUSCULAR, ONCE, 1 dose, On Mon01/17/25 at 1430 Start: 12-20-2024 End: 12-20-2024 inject 1 dose [...] 1,000 mcg, INTRAMUSCULAR, ONCE, 1 dose, On Mon07/11/24 at 1130 Start: 05-30-2024 End: 05-30-2024 inject 1 dose by intramuscular injection once 1,000 mcg, INTRAMUSCULAR, ONCE, 1 dose, On Debbie 05/30/24 at 1100 Start: 04-18-2024 End: 04-18-2024 inject 1 dose by intramuscular injection once 1,000 mcg, INTRAMUSCULAR, ONCE, 1 dose, On Mon04/18/24 at 1130 Start: 03-05-2024 End: 03-05-2024 inject 1 dose by intramuscular injection once 1,000 mcg, INTRAMUSCULAR, ONCE, 1 dose, On Mon03/05/24 at 1130 Zinc (1 source) End: 07-16-2021 ZINC ORAL Take by mouth. 0 07/16/2021 Discontinued (Discontinued by Patient) Comment on above: Take by mouth. Problems Active Problems Problem Classification Problem Date Documented Date Episodic/Chronic Acute and unspecified renal failure (9 sources) Acute renal failure syndrome; Translations: [Acute kidney failure, unspecified] Onset: 01-06-2025 01-06-2025 Episodic Aortic; peripheral; and visceral artery aneurysms (6 sources) Abdominal aortic aneurysm without rupture; Translations: [Abdominal aortic aneurysm (AAA) without rupture, unspecified part] Onset: 01-21-2025 01-21-2025 Chronic Chronic kidney disease (20 sources) Chronic kidney disease stage 3B ; Translations: [Stage 3b chronic kidney disease (HCC)] Onset: 08-12-2024 Resolved: 12-25-2024 11-24-2023 Chronic Chronic kidney disease (2 sources) Chronic kidney disease; Translations: [Chronic kidney disease, stage 3 unspecified] Onset: 08-12-2024 Coagulation and hemorrhagic disorders (20 sources) Chronic idiopathic thrombocytopenic purpura; Translations: [Immune thrombocytopenic purpura] Onset: 03-03-2016 Resolved: 01-15-2025 Chronic Coronary atherosclerosis and other heart disease (20 sources) Coronary arteriosclerosis; Translations: [Atherosclerotic heart disease of [place] coronary artery without angina pectoris] Onset: 02-26-2024 02-26-2024 Chronic Deficiency and other anemia (10 sources) Anemia; Translations: [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)] 11-22-2024 Chronic Deficiency and other anemia (2 sources) Anemia in chronic kidney disease; Translations: [Anemia in chronic kidney disease] Onset: 08-12-2024 Chronic Deficiency and other anemia (20 sources) 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 B>12< deficiency; Translations: [Other megaloblastic anemias, not elsewhere classified] Onset: 03-05-2024 03-05-2024 Episodic Deficiency and other anemia (1 source) Deficiency and other anemia; Translations: [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)] Onset: 11-22-2024 Essential hypertension (20 sources) Essential hypertension; Translations: [Essential (primary) hypertension] Onset: 05-13-2021 Resolved: 11-10-2021 Chronic Heart valve disorders (20 sources) Aortic valve calcification; Translations: [Nonrheumatic aortic valve disorder, unspecified] Onset: 02-26-2024 02-26-2024 Chronic Hypertension with complications and secondary hypertension (10 sources) Secondary hypertension; Translations: [Secondary hypertension, unspecified] Onset: 08-12-2024 11-24-2023 Chronic Malaise and fatigue (20 sources) Malaise and fatigue; Translations: [Other malaise] Onset: 11-28-2023 Episodic Nutritional deficiencies (10 sources) Vitamin D deficiency; Translations: [Vitamin D deficiency, unspecified] Onset: 08-12-2024 Chronic Osteoporosis (20 sources) Senile osteoporosis; Translations: [Age-related osteoporosis without current pathological fracture] Onset: 06-06-2023 06-06-2023 Chronic Other bone disease and musculoskeletal deformities (2 sources) Other specified disorders of bone, lower leg; Translations: [Other specified disorders of bone, lower leg] Onset: 05-21-2024 Episodic Other connective tissue disease (20 sources) Cramp in lower limb; Translations: [Sleep related leg cramps] Onset: 10-05-2017 10-05-2017 Chronic Other connective tissue disease (20 sources) Pain in bilateral legs; Translations: [Pain in right leg] Onset: 06-06-2023 06-06-2023 Episodic Other connective tissue disease (6 sources) Pain in left lower limb; Translations: [Pain in left leg] 04-09-2024 Episodic Other diseases of kidney and ureters (6 sources) Complex renal cyst; Translations: [Cyst of kidney, acquired] 09-20-2023 Episodic Other ear and sense organ disorders (3 sources) Mixed conductive AND sensorineural hearing loss; Translations: [Mixed conductive and sensorineural hearing loss, unilateral, left ear with restricted hearing on the contralateral side] 08-16-2023 Chronic Other ear and sense organ disorders (20 sources) Hearing loss; Translations: [Unspecified hearing loss, unspecified ear] Onset: 06-28-2022 11-28-2023 Chronic Other ear and sense organ disorders (20 sources) Cholesteatoma; Translations: [Unspecified cholesteatoma, left ear] Onset: 11-14-2023 11-14-2023 Episodic Other ear and sense organ disorders (5 sources) Unspecified cholesteatoma, left ear; Translations: [Unspecified cholesteatoma, left ear] Onset: 11-22-2023 Episodic Other lower respiratory disease (20 sources) Multiple nodules of lung; Translations: [Other nonspecific abnormal finding of lung field] Onset: 05-07-2024 Episodic Other nervous system disorders (20 sources) Compression injury of nerve; 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, unspecified] Onset: 06-28-2022 06-06-2023 Chronic Other nervous system disorders (1 source) Postoperative pain ; Translations: [Other acute postprocedural pain] 12-18-2023 Episodic Other nutritional; endocrine; and metabolic disorders (20 sources) Body mass index 30+ - obesity; Translations: [Obesity, unspecified] Onset: 06-06-2023 06-06-2023 Chronic Other nutritional; endocrine; and metabolic disorders (2 sources) Obesity caused by energy imbalance; Translations: [Other obesity due to excess calories] 03-13-2025 Chronic Other nutritional; endocrine; and metabolic disorders (20 sources) Abnormal weight loss; Translations: [Abnormal weight loss] Onset: 03-03-2016 03-03-2016 Episodic Other nutritional; endocrine; and metabolic disorders (3 sources) Hyperuricemia without signs of inflammatory arthritis and tophaceous disease; Translations: [Other abnormal blood chemistry] Onset: 01-20-2025 Episodic Other nutritional; endocrine; and metabolic disorders (6 sources) Hyperuricemia; Translations: [Hyperuricemia without signs of inflammatory arthritis and tophaceous disease] 09-20-2023 Episodic Other skin disorders (1 source) Mass of skin of right lower limb; Translations: [Disorder of the skin and subcutaneous tissue, unspecified] Episodic Otitis media and related conditions (20 sources) Perforation of left tympanic membrane; Translations: [Unspecified perforation of tympanic membrane, left ear] Onset: 06-29-2022 Resolved: 01-15-2025 08-16-2023 Episodic Peripheral and visceral atherosclerosis (20 sources) Intermittent claudication; Translations: [Peripheral vascular disease, unspecified] Onset: 06-08-2023 06-08-2023 Chronic Pulmonary heart disease (20 sources) Pulmonary arterial hypertension; Translations: [Secondary pulmonary arterial hypertension] Onset: 03-27-2024 03-27-2024 Chronic Residual codes; unclassified (20 sources) Obstructive sleep apnea syndrome; Translations: [Obstructive sleep apnea (adult) (pediatric)] Onset: 05-13-2021 Chronic Residual codes; unclassified (7 sources) Obstructive sleep apnea (adult) (pediatric); Translations: [Obstructive sleep apnea (adult)(pediatric)] Onset: 05-13-2021 Resolved: 11-10-2021 Chronic Residual codes; unclassified (1 source) Preoperative state 12-01-2024 Episodic Spondylosis; intervertebral disc disorders; other back problems (11 sources) Lumbar spondylosis; Translations: [Spondylosis without myelopathy or radiculopathy, lumbar region] Onset: 01-15-2025 Resolved: 01-15-2025 01-15-2025 Chronic Substance-related disorders (20 sources) Tobacco dependence syndrome; Translations: [Nicotine dependence, unspecified, uncomplicated] Onset: 06-28-2022 06-06-2023 Chronic Systemic lupus erythematosus and connective tissue disorders (20 sources) Lupus erythematosus; Translations: [Systemic lupus erythematosus, unspecified] Onset: 03-03-2016 Resolved: 01-15-2025 03-03-2016 Chronic Thyroid disorders (20 sources) Thyroid nodule; Translations: [Nontoxic single thyroid nodule] Onset: 02-26-2024 04-04-2024 Chronic Unclassified (2 sources) Unknown / UNK(Unknown) Onset: 05-24-2016 Unclassified (2 sources) Post-op; Translations: [Post-op] Onset: 01-02-2024 Unclassified (1 source) Autogenerated Problem Onset: 12-02-2024 12-02-2024 Past or Other Problems Problem Classification Problem Date Documented Da te Episodic/Chronic Deficiency and other anemia (3 sources) Anemia, unspecified; Translations: [Anemia, unspecified] Onset: 06-28-2023 Episodic Deficiency and other anemia (1 source) Other megaloblastic anemias, not elsewhere classified; Translations: [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 deficiency] Onset: 03-05-2024 Episodic Diabetes mellitus without complication (20 sources) Increased glucose level; Translations: [Other abnormal glucose] Onset: 04-04-2024 Resolved: 01-15-2025 04-04-2024 Episodic Diseases of mouth; excluding dental (20 sources) Xerostomia; Translations: [Dry mouth, unspecified] Onset: 01-05-2017 06-06-2023 Episodic Fluid and electrolyte disorders (20 sources) Hyperkalemia with normal acid-base balance; Translations: [Hyperkalemia] Onset: 11-27-2023 11-27-2023 Episodic Mood disorders (20 sources) Mood disorders Onset: 05-14-2024 05-14-2024 Nonspecific chest pain (20 sources) Chest pain; Translations: [Other chest pain] Onset: 04-04-2024 04-04-2024 Episodic Other aftercare (3 sources) Postoperative visit; Translations: [Encounter for other [...] kidney disease, unspecified] Onset: 06-28-2023 Episodic Other gastrointestinal disorders (20 sources) Diarrhea; Translations: [Diarrhea, unspecified] Onset: 04-24-2024 04-24-2024 Episodic Other non-traumatic joint disorders (20 sources) [...] neoplasm of breast] Onset: 04-04-2024 04-04-2024 Episodic Residual codes; unclassified (20 sources) Family history of breast cancer; Translations: [Family history of malignant neoplasm of breast] Onset: 04-13-2017 04-13-2017 Episodic Residual codes; unclassified (20 sources) Family history of cancer; Translations: [Family history of malignant neoplasm, unspecified] Onset: 08-15-2024 Resolved: 01-15-2025 08-15-2024 Episodic Spondylosis; intervertebral disc disorders; other back problems (20 sources) Low back pain; Translations: [Lumbar back pain] Onset: 02-12-2024 02-12-2024 Episodic Thyroid disorders (20 sources) Disorder of thyroid gland; Translations: [Disorder of thyroid, unspecified] Onset: 06-28-2022 06-06-2023 Episodic Tuberculosis (1 source) Acute miliary tuberculosis, unspecified; Translations: [Acute miliary tuberculosis, unspecified] Onset: 04-04-2024 Episodic Unclassified (6 sources) Onset: 11-14-2023 Resolved: 11-26-2024 11-14-2023 Results Test Name Value Interpretation Reference Range Facility CBC W Auto Differential pane l (Bld)on 03-14-2025 Basophils (Bld) [#/Vol] 10*3/uL Normal <0.11 [facility] Comment on above: Order Comment: Speci men Type: BLOOD SPECIMENOrdering Facility: [facility] Address: [address] [place] [address] Performed By: #### 5 7021-8 ####[facility] LABCLIA [id number] [place] [address] Basophils/100 WBC (Bld) 0.3 % Normal [facility] Comment on above: Order Comment: Speci men Type: BLOOD SPECIMENOrdering Facility: [facility] Address: [address] [place] [address] Performed By: #### 5 7021-8 ####[facility] LABCLIA [id number] [place] [address] Differential cell count method Nom (Bld) Auto Normal [facility] Comment on above: Order Comment: Speci men Type: BLOOD SPECIMENOrdering Facility: [facility] Address: [address] [place] [address] Performed By: #### 5 7021-8 ####[facility] LABCLIA [id number] [place] [address] Eosinophils (Bld) [#/Vol] 0.08 10*3/uL Normal <0.46 [facility] Comment on above: Order Comment: Speci men Type: BLOOD SPECIMENOrdering Facility: [facility] Address: [address] [place] [address] Performed By: #### 5 7021-8 ####[facility] LABCLIA [id number] [place] [address] Eosinophils/100 WBC (Bld) 1.3 % Normal [facility] Comment on above: Order Comment: Speci men Type: BLOOD SPECIMENOrdering Facility: [facility] Address: [address] [place] [address] Performed By: #### 5 7021-8 ####[facility] LABCLIA [id number] [place] [address] Erythrocyte distribution width (RBC) [Ratio] 13.9 % Normal 11.5-15.0 [facility] Comment on above: Order Comment: Speci men Type: BLOOD SPECIMENOrdering Facility: [facility] Address: [address] [place] [address] Performed By: #### 5 7021-8 ####[facility] LABCLIA [id number] [place] [address] Hematocrit (Bld) [Volume fraction] 36.1 % Normal 36.0-46.0 [facility] Comment on above: Order Comment: Speci men Type: BLOOD SPECIMENOrdering Facility: [facility] Address: [address] [place] [address] Performed By: #### 5 7021-8 ####[facility] LABCLIA [id number] [place] [address] Hemoglobin (Bld) [Mass/Vol] 11.2 g/dL Low 11.5-15.5 [facility] Comment on above: Order Comment: Speci men Type: BLOOD SPECIMENOrdering Facility: [facility] Address: [address] [place] [address] Performed By: #### 5 7021-8 ####[facility] LABCLIA [id number] [place] [address] Immature granulocytes (Bld) [#/Vol] 0.03 10*3/uL Normal <0.10 [facility] Comment on above: Order Comment: Speci men Type: BLOOD SPECIMENOrdering Facility: [facility] Address: [address] [place] [address] Performed By: #### 5 7021-8 ####[facility] LABCLIA [id number] [place] [address] Immature granulocytes/100 WBC (Bld) 0.5 % Normal [facility] Comment on above: Order Comment: Speci men Type: BLOOD SPECIMENOrdering Facility: [facility] Address: [address] [place] [address] Performed By: #### 5 7021-8 ####[facility] LABCLIA [id number] [place] [address] Lymphocytes (Bld) [#/Vol] 2.39 10*3/uL Normal 1.00-4.00 [facility] Comment on above: Order Comment: Speci men Type: BLOOD SPECIMENOrdering Facility: [facility] Address: [address] [place] [address] Performed By: #### 5 7021-8 ####[facility] LABCLIA [id number] [place] [address] Lymphocytes/100 WBC (Bld) 40.1 % Normal [facility] Comment on above: Order Comment: Speci men Type: BLOOD SPECIMENOrdering Facility: [facility] Address: [address] [place] [address] Performed By: #### 5 7021-8 ####[facility] LABCLIA [id number] [place] [address] MCH (RBC) [Entitic mass] 31.1 pg Normal 26.0-34.0 [facility] Comment on above: Order Comment: Speci men Type: BLOOD SPECIMENOrdering Facility: [facility] Address: [address] [place] [address] Performed By: #### 5 7021-8 ####[facility] LABIA [id number] [place] [address] MCHC (RBC) [Mass/Vol] 31.0 g/dL Normal 30.5-36.0 [facility] Comment on above: Order Comment: Speci men Type: BLOOD SPECIMENOrdering Facility: [facility] Address: [address] [place] [address] Performed By: #### 5 7021-8 ####[facility] LABCLIA [id number] [place] [address] MCV (RBC) [Entitic vol] 100.3 fL High 80.0-100.0 [facility] Comment on above: Order Comment: Speci men Type: BLOOD SPECIMENOrdering Facility: [facility] Address: [address] [place] [address] Performed By: #### 5 7021-8 ####[facility] LABCLIA [id number] [place] [address] Monocytes (Bld) [#/Vol] 0.23 10*3/uL Normal <0.87 [facility] Comment on above: Order Comment: Speci men Type: BLOOD SPECIMENOrdering Facility: [facility] Address: [address] [place] [address] Performed By: #### 5 7021-8 ####[facility] LABCLIA [id number] [place] [address] Monocytes/100 WBC (Bld) 3.9 % Normal [facility] Comment on above: Order Comment: Speci men Type: BLOOD SPECIMENOrdering Facility: [facility] Address: [address] [place] [address] Performed By: #### 5 7021-8 ####[facility] LABCLIA [id number] [place] [address] Neutrophils (Bld) [#/Vol] 3.21 10*3/uL Normal 1.45-7.50 [facility] Comment on above: Order Comment: Speci men Type: BLOOD SPECIMENOrdering Facility: [facility] Address: [address] [place] [address] Performed By: #### 5 7021-8 ####[facility] LABCLIA [id number] [place] [address] Neutrophils/100 WBC (Bld) 53.9 % Normal [facility] Comment on above: Order Comment: Speci men Type: BLOOD SPECIMENOrdering Facility: [facility] Address: [address] [place] [address] Performed By: #### 5 7021-8 ####[facility] LABCLIA [id number] [place] [address] Nucleated RBC (Bld) [#/Vol] 10*3/uL Normal <0.01 [facility] Comment on above: Order Comment: Speci men Type: BLOOD SPECIMENOrdering Facility: [facility] Address: [address] [place] [address] Performed By: #### 5 7021-8 ####[facility] LABCLIA [id number] [place] [address] Nucleated RBC/100 WBC (Bld) [Ratio] 0.0 /100 WBC Normal [facility] Comment on above: Order Comment: Speci men Type: BLOOD SPECIMENOrdering Facility: [facility] Address: [address] [place] [address] Performed By: #### 5 7021-8 ####[facility] LABCLIA [id number] [place] [address] Platelet mean volume (Bld) [Entitic vol] 9.4 fL Normal 9.0-12.7 [facility] Comment on above: Order Comment: Speci men Type: BLOOD SPECIMENOrdering Facility: [facility] Address: [address] [place] [address] Performed By: #### 5 7021-8 ####[facility] LABIA [id number] [place] [address] Platelets (Bld) [#/Vol] 194 10*3/uL Normal 150-400 [facility] Comment on above: Order Comment: Speci men Type: BLOOD SPECIMENOrdering Facility: [facility] Address: [address] [place] [address] Performed By: #### 5 7021-8 ####[facility] LABIA [id number] [place] [address] RBC (Bld) [#/Vol] 3.60 10*6/uL Low 3.90-5.20 [facility] Comment on above: Order Comment: Speci men Type: BLOOD SPECIMENOrdering Facility: [facility] Address: [address] [place] [address] Performed By: #### 5 7021-8 ####[facility] LABIA [id number] [place] [address] WBC (Bld) [#/Vol] 5.96 10*3/uL Normal 3.70-11.00 [facility] Comment on above: Order Comment: Speci men Type: BLOOD SPECIMENOrdering Facility: [facility] Address: [address] [place] [address] Performed By: #### 5 7021-8 ####[facility] LABCLIA [id number] [place] [address] Comprehensive metabolic 2000 panelon 03-14-2025 Albumin [Mass/Vol] 3.7 g/dL Low 3.9-4.9 [facility] Comment on above: Order Comment: Speci men Type: BLOOD SPECIMENOrdering Facility: [facility] Address: [address] [place], [place] [address] Performed By: #### 2 4323-8 ####[facility] LABCLIA [id number] [place] [id number] [place] ALP [Catalytic activity/Vol] 83 U/L Normal 34-123 [facility] Comment on above: Order Comment: Speci men Type: BLOOD SPECIMENOrdering Facility: [facility] Address: [address] [place], [place] [address] Performed By: #### 2 4323-8 ####[facility] LABCLIA [id number] [place] [id number] [place] ALT [Catalytic activity/Vol] 16 U/L Normal 7-38 [facility] Comment on above: Order Comment: Speci men Type: BLOOD SPECIMENOrdering Facility: [facility] Address: [address] [place], [place] [address] Performed By: #### 2 4323-8 ####[facility] LABCLIA [id number] [address] [address] [place] Anion gap [Moles/Vol] 10 mmol/L Normal 8-15 [facility] Comment on above: Order Comment: Speci men Type: BLOOD SPECIMENOrdering Facility: [facility] Address: [address] [place], [place] [address] Performed By: #### 2 4323-8 ####[facility] LABCLIA [id number] [place] [id number] [place] AST [Catalytic activity/Vol] 28 U/L Normal 13-35 [facility] Comment on above: Order Comment: Speci men Type: BLOOD SPECIMENOrdering Facility: [facility] Address: [address] [place] [address] Performed By: #### 2 4323-8 ####[facility] LABCLIA [id number] [place] [address] [place] Bilirubin [Mass/Vol] 0.4 mg/dL Normal 0.2-1.3 [facility] Comment on above: Order Comment: Speci men Type: BLOOD SPECIMENOrdering Facility: [facility] Address: [address] [place] [address] Performed By: #### 2 4323-8 ####[facility] LABCLIA [id number] [place] [address] [place] Calcium [Mass/Vol] 9.3 mg/dL Normal 8.5-10.2 [facility] Comment on above: Order Comment: Speci men Type: BLOOD SPECIMENOrdering Facility: [facility] Address: [address] [place] [address] Performed By: #### 2 4323-8 ####[facility] LABCLIA [id number] [place] [address] [place] Chloride [Moles/Vol] 104 mmol/L Normal 98-107 [facility] Comment on above: Order Comment: Speci men Type: BLOOD SPECIMENOrdering Facility: [facility] Address: [address] [place] [address] Performed By: #### 2 4323-8 ####[facility] LABCLIA [id number] [facility] [place] [id number] [place] CO2 [Moles/Vol] 24 mmol/L Normal 22-30 [facility] Comment on above: Order Comment: Speci men Type: BLOOD SPECIMENOrdering Facility: [facility] Address: [address] [place] [address] Performed By: #### 2 4323-8 ####[facility] [id number] [place] [address] [place] Creatinine [Mass/Vol] 1.19 mg/dL High 0.58-0.96 [facility] Comment on above: Order Comment: Speci men Type: BLOOD SPECIMENOrdering Facility: [facility] Address: [address] [place] [address] Performed By: #### 2 4323-8 ####[facility] [id number] [place] [address] [place] eGFRcr SerPlBld CKD-EPI 2020 48 mL/min/1.73m??? Low >=60 [facility] Comment on above: Order Comment: Speci men Type: BLOOD SPECIMENOrdering Facility: [facility] Address: [address] [place] [address] Result Comment: Miryam mated Glomerular Filtration Rate [...] actual GFR. Performed By: #### 2 4323-8 ####[facility] LABIA [id number] [place] [id number] [place] Glucose [Mass/Vol] 88 mg/dL Normal 74-99 [facility] Comment on above: Order Comment: Speci men Type: BLOOD SPECIMENOrdering Facility: [facility] Address: [address] [place] [address] Result Comment: The [place] Diabetes Association (ADA) provides guidance for cutoff [...] Standards of Medical Care in Diabetes 2016, [place] [employer]. Diabetes Care. 2016.39(Suppl 1). Performed By: #### 2 4323-8 ####[facility] LABCLIA [id number] [place] [id number] [place] Potassium [Moles/Vol] 5.4 mmol/L High 3.7-5.1 [facility] Comment on above: Order Comment: Speci men Type: BLOOD SPECIMENOrdering Facility: [facility] Address: [address] [place] [address] Performed By: #### 2 4323-8 ####[facility] LABIA [id number] [place] [id number] [place] Protein [Mass/Vol] 7.3 g/dL Normal 6.3-8.0 [facility] Comment on above: Order Comment: Speci men Type: BLOOD SPECIMENOrdering Facility: [facility] Address: [address] [place] [address] Performed By: #### 2 4323-8 ####[facility] LABCLIA [id number] [place] [id number] [place] Sodium [Moles/Vol] 138 mmol/L Normal 136-144 [facility] Comment on above: Order Comment: Speci men Type: BLOOD SPECIMENOrdering Facility: [facility] Address: [address] [place] [address] Performed By: #### 2 4323-8 ####[facility] LABCLIA [id number] [address] [address] [place] Urea nitrogen [Mass/Vol] 29 mg/dL High 7-21 [facility] Comment on above: Order Comment: Speci men Type: BLOOD SPECIMENOrdering Facility: [facility] Address: [address] [place] [address] Performed By: #### 2 4323-8 ####[facility] LABCLIA [id number] [place] [address] [place] Ferritin [facility] 2024 Ferritin [Mass/Vol] 96.2 ng/mL Normal 14.7-205.1 [facility] Comment on above: Order Comment: Speci men Type: BLOOD SPECIMENOrdering Facility: [facility] Address: [address] [place] [address] Performed By: #### 2 132-9, 2276-4, 2284-8, 04419-7 ####[facility] LABCLIA [id number] [place] [address] [place] Folate SerPl-ncon 03-14-20 25 Folate [Mass/Vol] 5.7 ng/mL Normal >4.7 [facility] Comment on above: Order Comment: Speci men Type: BLOOD SPECIMENOrdering Facility: [facility] Address: [address] [place] [address] Performed By: #### 2 132-9, 2276-4, 2284-8, 56389-9 ####[facility] LABCLIA [id number] [place] [id number] [place] Iron and Iron binding capaci ty panelon 03-14-2025 Iron [Mass/Vol] 51 ug/dL Normal 41-186 [facility] Comment on above: Order Comment: Speci men Type: BLOOD SPECIMENOrdering Facility: [facility] Address: [address] [place] [address] Performed By: #### 2 132-9, 2276-4, 2284-8, 64588-4 ####[facility] LABCLIA [id number] [address] [id number] [address] [place] Iron binding capacity [Mass/Vol] 335 ug/dL Normal 232-386 [facility] Comment on above: Order Comment: Speci men Type: BLOOD SPECIMENOrdering Facility: [facility] Address: [address] [place] [address] Performed By: #### 2 132-9, 2276-4, 2284-8, 07359-5 ####[facility] LABCLIA [id number] [address] [place] Iron/TIBC [Molar ratio] 15.2 % Normal 15.0-57.0 [facility] Comment on above: Order Comment: Speci men Type: BLOOD SPECIMENOrdering Facility: [facility] Address: [address] [place] [address] Performed By: #### 2 132-9, 2276-4, 2284-8, 79111-3 ####[facility] LABCLIA [id number] [place] [address] [place] Vit B12 [facility] 025 Cobalamin (Vitamin B12) [Mass/Vol] 766 pg/mL Normal 232-1245 [facility] Comment on above: Order Comment: Speci men Type: BLOOD SPECIMENOrdering Facility: [facility] Address: [address] [place] [address] Performed By: #### 2 132-9, 2276-4, 2284-8, 95477-9 ####[facility] LABCLIA [id number] [place] [id number] [place] CBC W Auto Differential pane l (Bld)on 02-14-2025 Basophils (Bld) [#/Vol] 10*3/uL Normal <0.11 [facility] Comment on above: Order Comment: Speci men Type: BLOOD SPECIMENOrdering Facility: [facility] Address: [address] [place] [address] Performed By: #### 5 7021-8 ####[facility] LABCLIA [id number] [place] [address] Basophils/100 WBC (Bld) 0.2 % Normal [facility] Comment on above: Order Comment: Speci men Type: BLOOD SPECIMENOrdering Facility: [facility] Address: [address] [place] [address] Performed By: #### 5 7021-8 ####[facility] LABCLIA [id number] [place] [address] Differential cell count method Nom (Bld) Auto Normal [facility] Comment on above: Order Comment: Speci men Type: BLOOD SPECIMENOrdering Facility: [facility] Address: [address] [place] [address] Performed By: #### 5 7021-8 ####[facility] LABCLIA [id number] [place] [address] Eosinophils (Bld) [#/Vol] 0.04 10*3/uL Normal <0.46 [facility] Comment on above: Order Comment: Speci men Type: BLOOD SPECIMENOrdering Facility: [facility] Address: [address] [place] [address] Performed By: #### 5 7021-8 ####[facility] LABCLIA [id number] [place] [address] Eosinophils/100 WBC (Bld) 0.9 % Normal [facility] Comment on above: Order Comment: Speci men Type: BLOOD SPECIMENOrdering Facility: [facility] Address: [address] [place] [address] Performed By: #### 5 7021-8 ####[facility] LABCLIA [id number] [place] [address] Erythrocyte distribution width (RBC) [Ratio] 14.5 % Normal 11.5-15.0 [facility] Comment on above: Order Comment: Speci men Type: BLOOD SPECIMENOrdering Facility: [facility] Address: [address] [place] [address] Performed By: #### 5 7021-8 ####[facility] LABCLIA [id number] [place] [address] Hematocrit (Bld) [Volume fraction] 34.3 % Low 36.0-46.0 [facility] Comment on above: Order Comment: Speci men Type: BLOOD SPECIMENOrdering Facility: [facility] Address: [address] [place] [address] Performed By: #### 5 7021-8 ####[facility] LABCLIA [id number] [place] [address] Hemoglobin (Bld) [Mass/Vol] 10.8 g/dL Low 11.5-15.5 [facility] Comment on above: Order Comment: Speci men Type: BLOOD SPECIMENOrdering Facility: [facility] Address: [address] [place] [address] Performed By: #### 5 7021-8 ####[facility] LABCLIA [id number] [place] [address] Immature granulocytes (Bld) [#/Vol] 10*3/uL Normal <0.10 [facility] Comment on above: Order Comment: Speci men Type: BLOOD SPECIMENOrdering Facility: [facility] Address: [address] [place] [address] Performed By: #### 5 7021-8 ####[facility] LABCLIA [id number] [place] [address] Immature granulocytes/100 WBC (Bld) 0.0 % Normal [facility] Comment on above: Order Comment: Speci men Type: BLOOD SPECIMENOrdering Facility: [facility] Address: [address] [place] [address] Performed By: #### 5 7021-8 ####[facility] LABCLIA [id number] [place] [address] Lymphocytes (Bld) [#/Vol] 1.87 10*3/uL Normal 1.00-4.00 [facility] Comment on above: Order Comment: Speci men Type: BLOOD SPECIMENOrdering Facility: [facility] Address: [address] [place] [address] Performed By: #### 5 7021-8 ####[facility] LABCLIA [id number] [place] [address] Lymphocytes/100 WBC (Bld) 43.3 % Normal [facility] Comment on above: Order Comment: Speci men Type: BLOOD SPECIMENOrdering Facility: [facility] Address: [address] [place] [address] Performed By: #### 5 7021-8 ####[facility] LABCLIA [id number] [place] [address] MCH (RBC) [Entitic mass] 32.2 pg Normal 26.0-34.0 [facility] Comment on above: Order Comment: Speci men Type: BLOOD SPECIMENOrdering Facility: [facility] Address: [address] [place] [address] Performed By: #### 5 7021-8 ####[facility] LABCLIA [id number] [place] [address] MCHC (RBC) [Mass/Vol] 31.5 g/dL Normal 30.5-36.0 [facility] Comment on above: Order Comment: Speci men Type: BLOOD SPECIMENOrdering Facility: [facility] Address: [address] [place] [address] Performed By: #### 5 7021-8 ####[facility] LABCLIA [id number] [place] [address] MCV (RBC) [Entitic vol] 102.4 fL High 80.0-100.0 C [facility] Comment on above: Order Comment: Speci men Type: BLOOD SPECIMENOrdering Facility: [facility] Address: [address] [place] [address] Performed By: #### 5 7021-8 ####[facility] LABCLIA [id number] [place] [address] Monocytes (Bld) [#/Vol] 0.23 10*3/uL Normal <0.87 [facility] Comment on above: Order Comment: Speci men Type: BLOOD SPECIMENOrdering Facility: [facility] Address: [address] [place] [address] Performed By: #### 5 7021-8 ####[facility] LABCLIA [id number] [place] [address] Monocytes/100 WBC (Bld) 5.3 % Normal [facility] Comment on above: Order Comment: Speci men Type: BLOOD SPECIMENOrdering Facility: [facility] Address: [address] [place] [address] Performed By: #### 5 7021-8 ####[facility] LABCLIA [id number] [place] [address] Neutrophils (Bld) [#/Vol] 2.17 10*3/uL Normal 1.45-7.50 [facility] Comment on above: Order Comment: Speci men Type: BLOOD SPECIMENOrdering Facility: [facility] Address: [address] [place] [address] Performed By: #### 5 7021-8 ####[facility] LABCLIA [id number] [place] [address] Neutrophils/100 WBC (Bld) 50.3 % Normal [facility] Comment on above: Order Comment: Speci men Type: BLOOD SPECIMENOrdering Facility: [facility] Address: [address] [place] [address] Performed By: #### 5 7021-8 ####[facility] LABCLIA [id number] [place] [address] Nucleated RBC (Bld) [#/Vol] 10*3/uL Normal <0.01 [facility] Comment on above: Order Comment: Speci men Type: BLOOD SPECIMENOrdering Facility: [facility] Address: [address] [place] [address] Performed By: #### 5 7021-8 ####[facility] LABCLIA [id number] [place] [address] Nucleated RBC/100 WBC (Bld) [Ratio] 0.0 /100 WBC Normal [facility] Comment on above: Order Comment: Speci men Type: BLOOD SPECIMENOrdering Facility: [facility] Address: [address] [place] [address] Performed By: #### 5 7021-8 ####[facility] LABCLIA [id number] [place] [address] Platelet mean volume (Bld) [Entitic vol] 8.7 fL Low 9.0-12.7 [facility] Comment on above: Order Comment: Speci men Type: BLOOD SPECIMENOrdering Facility: [facility] Address: [address] [place] [address] Performed By: #### 5 7021-8 ####[facility] LABCLIA [id number] [place] [address] Platelets (Bld) [#/Vol] 146 10*3/uL Low 150-400 [facility] Comment on above: Order Comment: Speci men Type: BLOOD SPECIMENOrdering Facility: [facility] Address: [address] [place] [address] Performed By: #### 5 7021-8 ####[facility] LABCLIA [id number] [place] [address] RBC (Bld) [#/Vol] 3.35 10*6/uL Low 3.90-5.20 [facility] Comment on above: Order Comment: Speci men Type: BLOOD SPECIMENOrdering Facility: [facility] Address: [address] [place] [address] Performed By: #### 5 7021-8 ####[facility] LABCLIA [id number] [place] [address] WBC (Bld) [#/Vol] 4.32 10*3/uL Normal 3.70-11.00 [facility] Comment on above: Order Comment: Speci men Type: BLOOD SPECIMENOrdering Facility: [facility] Address: [address] [place] [address] Performed By: #### 5 7021-8 ####[facility] LABCLIA [id number] [place] [address] CNOVSPon 02-14-2025 CNOVSP Normal [facility] metabolic 2000 panelon 02-14-2025 Albumin [Mass/Vol] 3.8 g/dL Low 3.9-4.9 [facility] Comment on above: Order Comment: Speci men Type: BLOOD SPECIMENOrdering Facility: [facility] Address: [address] [place] [address] Performed By: #### 2 4323-8 ####[facility] LABCLIA [id number] [place] [address] ALP [Catalytic activity/Vol] 78 U/L Normal 34-123 [facility] Comment on above: Order Comment: Speci men Type: BLOOD SPECIMENOrdering Facility: [facility] Address: [address] [place] [address] Performed By: #### 2 4323-8 ####[facility] LABCLIA [id number] [place] [address] ALT [Catalytic activity/Vol] 16 U/L Normal 7-38 [facility] Comment on above: Order Comment: Speci men Type: BLOOD SPECIMENOrdering Facility: [facility] Address: [address] [place] [address] Performed By: #### 2 4323-8 ####[facility] LABCLIA [id number] [place] [address] Anion gap [Moles/Vol] 7 mmol/L Low 8-15 [facility] Comment on above: Order Comment: Speci men Type: BLOOD SPECIMENOrdering Facility: [facility] Address: [address] [place] [address] Performed By: #### 2 4323-8 ####[facility] LABCLIA [id number] [place] [address] AST [Catalytic activity/Vol] 20 U/L Normal 13-35 [facility] Comment on above: Order Comment: Speci men Type: BLOOD SPECIMENOrdering Facility: [facility] Address: [address] [place] [address] Performed By: #### 2 4323-8 ####[facility] LABCLIA [id number] [place] [address] Bilirubin [Mass/Vol] 0.6 mg/dL Normal 0.2-1.3 [facility] Comment on above: Order Comment: Speci men Type: BLOOD SPECIMENOrdering Facility: [facility] Address: [address] [place] [address] Performed By: #### 2 4323-8 ####[facility] LABCLIA [id number] [place] [address] Calcium [Mass/Vol] 9.4 mg/dL Normal 8.5-10.2 [facility] Comment on above: Order Comment: Speci men Type: BLOOD SPECIMENOrdering Facility: [facility] Address: [address] [place] [address] Performed By: #### 2 4323-8 ####[facility] LABCLIA [id number] [place] [address] Chloride [Moles/Vol] 108 mmol/L High 98-107 [facility] Comment on above: Order Comment: Speci men Type: BLOOD SPECIMENOrdering Facility: [facility] Address: [address] [place] [address] Performed By: #### 2 4323-8 ####[facility] LABCLIA [id number] [place] [address] CO2 [Moles/Vol] 25 mmol/L Normal 22-30 [facility] Comment on above: Order Comment: Speci men Type: BLOOD SPECIMENOrdering Facility: [facility] Address: [address] [place] [address] Performed By: #### 2 4323-8 ####[facility] LABCLIA [id number] [place] [address] Creatinine [Mass/Vol] 1.21 mg/dL High 0.58-0.96 [facility] Comment on above: Order Comment: Speci men Type: BLOOD SPECIMENOrdering Facility: [facility] Address: [address] [place] [address] Performed By: #### 2 4323-8 ####[facility] LABCLIA [id number] [place] [address] eGFRcr SerPlBld CKD-EPI 2020 47 mL/min/1.73m??? Low >=60 [facility] Comment on above: Order Comment: Speci men Type: BLOOD SPECIMENOrdering Facility: [facility] Address: [address] [place] [address] Result Comment: Miryam mated Glomerular Filtration Rate [...] actual GFR. Performed By: #### 2 4323-8 ####[facility] LABCLIA [id number] [place] [address] Glucose [Mass/Vol] 109 mg/dL High 74-99 [facility] Comment on above: Order Comment: Speci men Type: BLOOD SPECIMENOrdering Facility: [facility] Address: [address] [place], [place] [address] Result Comment: The [place] Diabetes [employer] (ADA) provides guidance for cutoff [...] Standards of Medical Care in Diabetes 2016, [place] [employer]. Diabetes Care. 2016.39(Suppl 1). Performed By: #### 2 4323-8 ####[facility] LABCLIA [id number] [place] [address] Potassium [Moles/Vol] 4.4 mmol/L Normal 3.7-5.1 [facility] Comment on above: Order Comment: Speci men Type: BLOOD SPECIMENOrdering Facility: [facility] Address: [address] [place] [address] Performed By: #### 2 4323-8 ####[facility] LABCLIA [id number] [place] [address] Protein [Mass/Vol] 7.1 g/dL Normal 6.3-8.0 [facility] Comment on above: Order Comment: Speci men Type: BLOOD SPECIMENOrdering Facility: [facility] Address: [address] [place] [address] Performed By: #### 2 4323-8 ####[facility] LABCLIA [id number] [place] [address] Sodium [Moles/Vol] 140 mmol/L Normal 136-144 [facility] Comment on above: Order Comment: Speci men Type: BLOOD SPECIMENOrdering Facility: [facility] Address: [address] [place] [address] Performed By: #### 2 4323-8 ####[facility] LABCLIA [id number] [place] [address] Urea nitrogen [Mass/Vol] 37 mg/dL High 7-21 [facility] Comment on above: Order Comment: Speci men Type: BLOOD SPECIMENOrdering Facility: [facility] Address: [address] [place] [address] Performed By: #### 2 4323-8 ####[facility] LABCLIA [id number] [place] [address] Ferritin SerPl-mCncon 2024 Ferritin [Mass/Vol] 80.1 ng/mL Normal 14.7-205.1 [facility] Comment on above: Order Comment: Speci men Type: BLOOD SPECIMENOrdering Facility: [facility] Address: [address] [place] [address] Performed By: #### 5 0190-8, 4, 8, 2132-03 ####[facility] LABCLIA [id number] [address] [place] OF [facility] Folate SerPl-mCncon 02-15-20 25 Folate [Mass/Vol] 10.5 ng/mL Normal >4.7 [facility] Comment on above: Order Comment: Speci men Type: BLOOD SPECIMENOrdering Facility: [facility] Address: [address] [place] [address] Performed By: #### 5 0190-8, 4, 8, 2132-03 ####[facility] LABCLIA [id number] [place] [id number] [place] Iron and Iron binding capaci ty panelon 02-14-2025 Iron [Mass/Vol] 66 ug/dL Normal 41-186 [facility] Comment on above: Order Comment: Speci men Type: BLOOD SPECIMENOrdering Facility: [facility] Address: [address] [place] [address] Performed By: #### 5 0190-8, 2275-4, 8, 2132-03 ####[facility] LABCLIA [id number] [place] [id number] [facility] [place] Iron binding capacity [Mass/Vol] 319 ug/dL Normal 232-386 [facility] Comment on above: Order Comment: Speci men Type: BLOOD SPECIMENOrdering Facility: [facility] Address: [address] [place] [address] Performed By: #### 5 0190-8, 6-4, 8, 2132-03 ####[facility] LABCLIA [id number] [address] [place] Iron/TIBC [Molar ratio] 20.7 % Normal 15.0-57.0 [facility] Comment on above: Order Comment: Speci men Type: BLOOD SPECIMENOrdering Facility: [facility] Address: [address] [place] [address] Performed By: #### 5 0190-8, 6-4, 8, 2132-03 ####[facility] LABCLIA [id number] [place] [address] [place] Vit B12 [facility] 025 Cobalamin (Vitamin B12) [Mass/Vol] 680 pg/mL Normal 232-1245 [facility] Comment on above: Order Comment: Speci men Type: BLOOD SPECIMENOrdering Facility: [facility] Address: [address] [place] [address] Performed By: #### 5 0190-8, 6-4, 2284-02, 2132-03 ####[facility] LABIA [id number] [place] [id number] [place] CBC W Auto Differential pane l (Bld)on 01-31-2025 Basophils (Bld) [#/Vol] 10*3/uL Normal <0.11 [facility] Comment on above: Order Comment: Speci men Type: BLOOD SPECIMENOrdering Facility: [facility] Address: [address] [place] [address] Performed By: #### 5 7021-8 ####[facility] LABCLIA [id number] [place] [address] Basophils/100 WBC (Bld) 0.2 % Normal [facility] Comment on above: Order Comment: Speci men Type: BLOOD SPECIMENOrdering Facility: [facility] Address: [address] [place] [address] Performed By: #### 5 7021-8 ####[facility] LABCLIA [id number] [place] [address] Differential cell count method Nom (Bld) Auto Normal [facility] Comment on above: Order Comment: Speci men Type: BLOOD SPECIMENOrdering Facility: [facility] Address: [address] [place] [address] Performed By: #### 5 7021-8 ####[facility] LABCLIA [id number] [place] [address] Eosinophils (Bld) [#/Vol] 0.04 10*3/uL Normal <0.46 [facility] Comment on above: Order Comment: Speci men Type: BLOOD SPECIMENOrdering Facility: [facility] Address: [address] [place] [address] Performed By: #### 5 7021-8 ####[facility] LABCLIA [id number] [place] [address] Eosinophils/100 WBC (Bld) 0.8 % Normal [facility] Comment on above: Order Comment: Speci men Type: BLOOD SPECIMENOrdering Facility: [facility] Address: [address] [place] [address] Performed By: #### 5 7021-8 ####[facility] LABCLIA [id number] [place] [address] Erythrocyte distribution width (RBC) [Ratio] 14.5 % Normal 11.5-15.0 [facility] Comment on above: Order Comment: Speci men Type: BLOOD SPECIMENOrdering Facility: [facility] Address: [address] [place] [address] Performed By: #### 5 7021-8 ####[facility] LABCLIA [id number] [place] [address] Hematocrit (Bld) [Volume fraction] 33.8 % Low 36.0-46.0 [facility] Comment on above: Order Comment: Speci men Type: BLOOD SPECIMENOrdering Facility: [facility] Address: [address] [place] [address] Performed By: #### 5 7021-8 ####[facility] LABCLIA [id number] [place] [address] Hemoglobin (Bld) [Mass/Vol] 10.6 g/dL Low 11.5-15.5 [facility] Comment on above: Order Comment: Speci men Type: BLOOD SPECIMENOrdering Facility: [facility] Address: [address] [place] [address] Performed By: #### 5 7021-8 ####[facility] LABCLIA [id number] [place] [address] Immature granulocytes (Bld) [#/Vol] 10*3/uL Normal <0.10 [facility] Comment on above: Order Comment: Speci men Type: BLOOD SPECIMENOrdering Facility: [facility] Address: [address] [place] [address] Performed By: #### 5 7021-8 ####[facility] LABCLIA [id number] [place] [address] Immature granulocytes/100 WBC (Bld) 0.4 % Normal [facility] Comment on above: Order Comment: Speci men Type: BLOOD SPECIMENOrdering Facility: [facility] Address: [address] [place] [address] Performed By: #### 5 7021-8 ####[facility] LABCLIA [id number] [place] [address] Lymphocytes (Bld) [#/Vol] 2.20 10*3/uL Normal 1.00-4.00 [facility] Comment on above: Order Comment: Speci men Type: BLOOD SPECIMENOrdering Facility: [facility] Address: [address] [place] [address] Performed By: #### 5 7021-8 ####[facility] LABCLIA [id number] [place] [address] Lymphocytes/100 WBC (Bld) 42.6 % Normal [facility] Comment on above: Order Comment: Speci men Type: BLOOD SPECIMENOrdering Facility: [facility] Address: [address] [place] [address] Performed By: #### 5 7021-8 ####[facility] LABCLIA [id number] [place] [address] MCH (RBC) [Entitic mass] 31.8 pg Normal 26.0-34.0 [facility] Comment on above: Order Comment: Speci men Type: BLOOD SPECIMENOrdering Facility: [facility] Address: [address] [place] [address] Performed By: #### 5 7021-8 ####[facility] LABCLIA [id number] [place] [address] MCHC (RBC) [Mass/Vol] 31.4 g/dL Normal 30.5-36.0 [facility] Comment on above: Order Comment: Speci men Type: BLOOD SPECIMENOrdering Facility: [facility] Address: [address] [place] [address] Performed By: #### 5 7021-8 ####[facility] LABCLIA [id number] [place] [address] MCV (RBC) [Entitic vol] 101.5 fL High 80.0-100.0 C [facility] Comment on above: Order Comment: Speci men Type: BLOOD SPECIMENOrdering Facility: [facility] Address: [address] [place] [address] Performed By: #### 5 7021-8 ####[facility] LABCLIA [id number] [place] [address] Monocytes (Bld) [#/Vol] 0.25 10*3/uL Normal <0.87 [facility] Comment on above: Order Comment: Speci men Type: BLOOD SPECIMENOrdering Facility: [facility] Address: [address] [place] [address] Performed By: #### 5 7021-8 ####[facility] LABCLIA [id number] [place] [address] Monocytes/100 WBC (Bld) 4.8 % Normal [facility] Comment on above: Order Comment: Speci men Type: BLOOD SPECIMENOrdering Facility: [facility] [place] Address: [address] [place] [address] Performed By: #### 5 7021-8 ####[facility] LABCLIA [id number] [place] [address] Neutrophils (Bld) [#/Vol] 2.65 10*3/uL Normal 1.45-7.50 [facility] Comment on above: Order Comment: Speci men Type: BLOOD SPECIMENOrdering Facility: [facility] Address: [address] [place] [address] Performed By: #### 5 7021-8 ####[facility] LABCLIA [id number] [place] [address] Neutrophils/100 WBC (Bld) 51.2 % Normal [facility] Comment on above: Order Comment: Speci men Type: BLOOD SPECIMENOrdering Facility: [facility] Address: [address] [place] [address] Performed By: #### 5 7021-8 ####[facility] LABCLIA [id number] [place] [address] Nucleated RBC (Bld) [#/Vol] 10*3/uL Normal <0.01 [facility] Comment on above: Order Comment: Speci men Type: BLOOD SPECIMENOrdering Facility: [facility] Address: [address] [place] [address] Performed By: #### 5 7021-8 ####[facility] LABCLIA [id number] [place] [address] Nucleated RBC/100 WBC (Bld) [Ratio] 0.0 /100 WBC Normal [facility] Comment on above: Order Comment: Speci men Type: BLOOD SPECIMENOrdering Facility: [facility] Address: [address] [place] [address] Performed By: #### 5 7021-8 ####[facility] LABCLIA [id number] [place] [address] Platelet mean volume (Bld) [Entitic vol] 8.8 fL Low 9.0-12.7 [facility] Comment on above: Order Comment: Speci men Type: BLOOD SPECIMENOrdering Facility: [facility] Address: [address] [place] [address] Performed By: #### 5 7021-8 ####[facility] LABIA [id number] [place] [address] Platelets (Bld) [#/Vol] 160 10*3/uL Normal 150-400 [facility] Comment on above: Order Comment: Speci men Type: BLOOD SPECIMENOrdering Facility: [facility] Address: [address] [place] [address] Performed By: #### 5 7021-8 ####[facility] LABCLIA [id number] [place] [address] RBC (Bld) [#/Vol] 3.33 10*6/uL Low 3.90-5.20 [facility] Comment on above: Order Comment: Speci men Type: BLOOD SPECIMENOrdering Facility: [facility] Address: [address] [place] [address] Performed By: #### 5 7021-8 ####[facility] LABCLIA [id number] [place] [address] WBC (Bld) [#/Vol] 5.17 10*3/uL Normal 3.70-11.00 [facility] Comment on above: Order Comment: Speci men Type: BLOOD SPECIMENOrdering Facility: [facility] Address: [address] [place] [address] Performed By: #### 5 7021-8 ####[facility] LABCLIA [id number] [place] [address] CNPNon 01-28-2025 CNPN Normal [facility] APTTon 01-20-2025 aPTT Coag (Bld) [Time] 33 s Normal 26-[address] [facility] Comment on above: Performed By: #### RED Delgado #### [facility] ([id number]) [address] [facility], [facility] [address] [place] [address] CBC WITH AUTO DIFFERENTIALon 01-20-2025 BASOPHILS ABSOLUTE COUNT (10*3/UL) BY AUTOMATED COUNT 0.0 10*3/uL Normal 0.0-0.2 [facility] Comment on above: Performed By: #### H A1C, THYR #### [facility] ([id number]) [address] [place] [address], [facility] [address] [place] [address] BASOPHILS RELATIVE PERCENT BY AUTOMATED COUNT 0.4 % Normal [facility] Comment on above: Performed By: #### H A1C, THYR #### [facility] ([id number]) [address] [place] [address], [address] [place] [address] CELLAVISION DIFFERENTIAL TYPE AUTOMATED DIFFERENTIAL Normal [facility] Comment on above: Performed By: #### H A1C, THYR #### [facility] ([id number]) [address] [place] [address], [address] [place] [address] Eosinophils (Bld) [#/Vol] 0.0 10*3/uL Normal 0.0-0.4 [facility] Comment on above: Performed By: #### H A1C, THYR #### [facility] ([id number]) [address], [address] [place] [address] EOSINOPHILS RELATIVE PERCENT BY AUTOMATED COUNT 1.0 % Normal [facility] Comment on above: Performed By: #### H A1C, THYR #### [facility] ([id number]) [address], [address] [place] [address] Erythrocyte distribution width (RBC) [Ratio] 15.0 % Normal 11.5-15 [facility] Comment on above: Performed By: #### H A1C, THYR #### [facility] ([id number]) [address], [address] [place] [address] Hematocrit (Bld) [Volume fraction] 32.7 % Low 35-47 [facility] Comment on above: Performed By: #### H A1C, THYR #### [facility] ([id number]) [address], [address] [place] [address] Hemoglobin (Bld) [Mass/Vol] 11.0 g/dL Low 11.7-15.5 [facility] Comment on above: Performed By: #### H A1C, THYR #### [facility] ([id number]) [address], [address] [place] [address] LYMPHOCYTES ABSOLUTE COUNT (10*3/UL) BY AUTOMATED COUNT 1.5 10*3/uL Normal 1.0-3.5 [facility] Comment on above: Performed By: #### H A1C, THYR #### [facility] ([id number]) [address], [address] [place] [address] LYMPHOCYTES RELATIVE PERCENT BY AUTOMATED COUNT 40.7 % Normal [facility] Comment on above: Performed By: #### H A1C, THYR #### [facility] ([id number]) [address], [address] [place] [address] MCH (RBC) [Entitic mass] 32.4 pg Normal 27-34 [facility] Comment on above: Performed By: #### H A1C, THYR #### [facility] ([id number]) [address], [address] [place] [address] MCHC (RBC) [Mass/Vol] 33.6 g/dL Normal 32-36 [facility] Comment on above: Performed By: #### H A1C, THYR #### [facility] ([id number]) [address], [address] [place] [address] MCV (RBC) [Entitic vol] 97 fL Normal 80-100 [facility] Comment on above: Performed By: #### H A1C, THYR #### [facility] ([id number]) [address], [address] [place] [address] MONOCYTES ABSOLUTE COUNT (10*3/UL) BY AUTOMATED COUNT 0.2 10*3/uL Normal 0.0-0.9 [facility] Comment on above: Performed By: #### H A1C, THYR #### [facility] ([id number]) [address], [address] [place] [address] MONOCYTES RELATIVE PERCENT BY AUTOMATED COUNT 5.8 % Normal [facility] Comment on above: Performed By: #### H A1C, THYR #### [facility] ([id number]) [address], [address] [place] [address] NEUTROPHILS ABSOLUTE COUNT BY AUTOMATED COUNT 2.0 10*3/uL Normal 1.5-6.6 [facility] Comment on above: Performed By: #### H A1C, THYR #### [facility] ([id number]) [address], [address] [place] [address] NEUTROPHILS RELATIVE PERCENT BY AUTOMATED COUNT 52.1 % Normal [facility] Comment on above: Performed By: #### H A1C, THYR #### [facility] ([id number]) [address], [address] [place] [address] Platelet mean volume (Bld) [Entitic vol] 8.2 fL Normal 7-12 [facility] Comment on above: Performed By: #### H A1C, THYR #### [facility] ([id number]) [address], [address] [place] [address] Platelets (Bld) [#/Vol] 189 10*3/uL Normal 150-450 [facility] Comment on above: Performed By: #### H A1C, THYR #### [facility] ([id number]) [address], [address] [place] [address] RBC COUNT 3.38 X10E12/L Low 3.8-5.2 [facility] Comment on above: Performed By: #### H A1C, THYR #### [facility] ([id number]) [address], [address] [place] [address] WBC (Bld) [#/Vol] 3.8 10*3/uL Low 4-11 [facility] Comment on above: Performed By: #### H A1C, THYR #### [facility] ([id number]) [address], [address] [place] [address] COMPREHENSIVE METABOLIC PANE Momo 01-20-2025 Albumin [Mass/Vol] 3.6 g/dL Normal 3.2-5.3 [facility] Comment on above: Performed By: #### H A1C, THYR #### [facility] ([id number]) [address], [address] [place] [address] ALP [Catalytic activity/Vol] 70 U/L Normal 39-130 [facility] Comment on above: Performed By: #### H A1C, THYR #### [facility] ([id number]) [address], [address] [place] [address] ALT [Catalytic activity/Vol] 11 U/L Normal <=31 [facility] Comment on above: Performed By: #### H A1C, THYR #### [facility] ([id number]) [address], [address] [place] [address] Anion gap [Moles/Vol] 11 mmol/L Normal 5-15 [facility] Comment on above: Performed By: #### H A1C, THYR #### [facility] ([id number]) [address], [address] [place] [address] AST [Catalytic activity/Vol] 18 U/L Normal <=41 [facility] Comment on above: Performed By: #### H A1C, THYR #### [facility] ([id number]) [address], [address] [place] [address] Bilirubin [Mass/Vol] 0.5 mg/dL Normal 0.3-1.2 [facility] Comment on above: Performed By: #### H A1C, THYR #### [facility] ([id number]) [address], [address] [place] [address] Calcium [Mass/Vol] 9.3 mg/dL Normal 8.5-10.5 [facility] Comment on above: Performed By: #### H A1C, THYR #### [facility] ([id number]) [address], [address] [place] [address] Chloride [Moles/Vol] 106 mmol/L Normal 98-109 [facility] Comment on above: Performed By: #### H A1C, THYR #### [facility] ([id number]) [address], [address] [place] [address] CO2 [Moles/Vol] 24 mmol/L Normal 22-32 [facility] Comment on above: Performed By: #### H A1C, THYR #### [facility] ([id number]) [address], [address] [place] [address] Creatinine [Mass/Vol] 1.17 mg/dL High 0.40-1.00 [facility] Comment on above: Result Comment: METH OD TRACEABLE TO IDMS STANDARD Performed By: #### H A1C, THYR #### [facility] ([id number]) [address], [address] [place] [address] GFR/1.73 sq M.predicted among non-blacks MDRD (S/P/Bld) [Vol rate/Area] 49 mL/min/{1.73_m2} Low >=60 [facility] Comment on above: Result Comment: Repo rted eGFR is based on the CKD-EPI 2020 equation that does not use a race coefficient. Performed By: #### H A1C, THYR #### [facility] ([id number]) [address], [address] [place] [address] Glucose [Mass/Vol] 90 mg/dL Normal 65-99 [facility] Comment on above: Performed By: #### H A1C, THYR #### [facility] ([id number]) [address] [address] [place] [address] Potassium [Moles/Vol] 4.6 mmol/L Normal 3.5-5.0 [facility] Comment on above: Performed By: #### H A1C, THYR #### [facility] ([id number]) [address], [address] [place] [address] Protein [Mass/Vol] 7.1 g/dL Normal 6.0-8.0 [facility] Comment on above: Performed By: #### H A1C, THYR #### [facility] ([id number]) [address], [address] [place] [address] Sodium [Moles/Vol] 141 mmol/L Normal 134-146 [facility] Comment on above: Performed By: #### H A1C, THYR #### [facility] ([id number]) [address], [address] [place] [address] Urea nitrogen [Mass/Vol] 32 mg/dL High 5-27 [facility] Comment on above: Performed By: #### H A1C, THYR #### [facility] ([id number]) [address], [address] [place] [address] FERRITINon 01-20-2025 Ferritin [Mass/Vol] 41 ng/mL Normal 11-307 [facility] Comment on above: Performed By: #### H A1C, THYR #### [facility] ([id number]) [address], [address] [place] [address] IRON AND TIBCon 01-20-2025 Iron [Mass/Vol] 40 ug/dL Low 50-170 [facility] Comment on above: Performed By: #### H A1C, THYR #### [facility] ([id number]) [address], [address] [place] [address] IRON BINDING 329 ug/dL Normal 250-425 [facility] Comment on above: Performed By: #### H A1C, THYR #### [facility] ([id number]) [address], [address] [place] [address] IRON SATURATION 12 % SATURATION Low 15-50 [facility] Comment on above: Performed By: #### H A1C, THYR #### [facility] ([id number]) [address], [address] [place] [address] Transferrin [Mass/Vol] 235 mg/dL Normal 168-336 [facility] Comment on above: Performed By: #### H A1C, THYR #### [facility] ([id number]) [address], [address] [place] [address] MAGNESIUMon 01-20-2025 Magnesium [Mass/Vol] 2.2 mg/dL Normal 1.8-2.6 [facility] Comment on above: Performed By: #### H A1C, THYR #### [facility] ([id number]) [address], [address] [place] [address] PARATHYROID HORMOME, INTACTo n 01-20-2025 PTH INTACT 66 pg/mL Normal 12-88 [facility] Comment on above: Performed By: #### H A1C, THYR #### [facility] ([id number]) [address], [address] [place] [address] PHOSPHORUSon 01-20-2025 Phosphate [Mass/Vol] 2.9 mg/dL Normal 2.4-4.9 [facility] Comment on above: Performed By: #### H A1C, THYR #### [facility] ([id number]) [address], [address] [place] [address] PROTEIN CREAT RATIOon 2024 U/PRO/AGRICULTURAL ENGINEER RATIO CALC 0.09 Normal <=0.20 [facility] Comment on above: Order Comment: Nephr otic Syndrome is associated with ratios >3.5 Performed By: #### H A1C, THYR #### [facility] ([id number]) [address], [address] [place] [address] URINE CREATININE,RDM 109.08 mg/dL Normal Pr [facility] Comment on above: Order Comment: Nephr otic Syndrome is associated with ratios >3.5 Performed By: #### H A1C, THYR #### [facility] ([id number]) [address], [address] [place] [address] URINE PROTEIN, RANDOM (MG/L) 100 mg/L Normal <120 [facility] Comment on above: Order Comment: Nephr otic Syndrome is associated with ratios >3.5 Performed By: #### H A1C, THYR #### [facility] ([id number]) [address], [address] [place] [address] PROTIME AND INRon 01-20-2025 INR 1.0 Normal 0.9-1.2 [facility] Comment on above: Performed By: #### U Kori MALBU #### [facility] ([id number]) [address], [address] [place] [address] PT Coag (PPP) [Time] 11.2 s Normal 9.8-13.2 [facility] Comment on above: Performed By: #### U RED Sheikh #### [facility] ([id number]) [address], [address] [place] [address] URIC ACIDon 01-20-2025 Urate [Mass/Vol] 7.9 mg/dL High 2.6-7.2 [facility] Comment on above: Performed By: #### H A1C, THYR #### [facility] ([id number]) [address], [address] [place] [address] URINALYSISon 01-20-2025 Bilirubin Ql (U) Negative Normal Negative [facility] Comment on above: Performed By: #### H A1C, THYR #### [facility] ([id number]) [address], [address] [place] [address] BLOOD/HGB Negative Normal Negative [facility] Comment on above: Performed By: #### H A1C, THYR #### [facility] ([id number]) [address], [address] [place] [address] Color (U) Yellow Normal Yellow, Colorless [facility] Comment on above: Performed By: #### H A1C, THYR #### [facility] ([id number]) [address], [address] [place] [address] Glucose Ql (U) Negative Normal Negative [facility] Comment on above: Performed By: #### H A1C, THYR #### [facility] ([id number]) [address], [address] [place] [address] Ketones Ql (U) Negative Normal Negative [facility] Comment on above: Performed By: #### H A1C, THYR #### [facility] ([id number]) [address], [address] [place] [address] Leukocyte esterase Test strip Ql (U) Negative Normal Negative [facility] Comment on above: Performed By: #### H A1C, THYR #### [facility] ([id number]) [address], [address] [place] [address] Nitrite Ql (U) Negative Normal Negative [facility] Comment on above: Performed By: #### H A1C, THYR #### [facility] ([id number]) [address], [address] [place] [address] PH,URINE 6.0 Normal 5.0-8.5 [facility] Comment on above: Performed By: #### H A1C, THYR #### [facility] ([id number]) [address], [address] [place] [address] Protein Ql (U) Negative Normal Negative [facility] Comment on above: Performed By: #### H A1C, THYR #### [facility] ([id number]) [address], [address] [place] [address] Specific gravity (U) [Rel density] 1.018 Normal 1.003-1.035 [facility] Comment on above: Performed By: #### H A1C, THYR #### [facility] ([id number]) [address], [address] [place] [address] TURBIDITY Clear Normal Clear [facility] Comment on above: Performed By: #### H A1C, THYR #### [facility] ([id number]) [address], [address] [place] [address] UROBILINOGEN <1.1 eu/dL Normal <1.1 eu/dL [facility] Comment on above: Performed By: #### H A1C, THYR #### [facility] ([id number]) [address], [address] [place] [address] VITAMIN D 25 HYDROXYon 01-20 VITAMIN D 25 HYD TOT 19.9 ng/mL Low 30.0-100.0 [facility] Comment on above: Order Comment: Vitam in D status 25 [place] Vitamin D Deficienc y <20 ng/mLInsufficiency 20-29 ng/mLSufficiency 30-100 ng/mLToxicity >100 ng/mLNOTE: A pediatric reference range has not been established by the double corner cutter of this kit. The [employer] recommends a Vitamin D level of = or >20ng/mL in infants and children. Performed By: #### H A1C, THYR #### [facility] ([id number]) [address] [facility], [address] [place] [address] CBC W Auto Differential pane l (Bld)on 01-17-2025 Basophils (Bld) [#/Vol] 10*3/uL Normal <0.11 [facility] Comment on above: Order Comment: Fabricio tapia Type: BLOOD SPECIMENOrdering Facility: [facility] Address: [address] [place] [address] Performed By: #### 5 7021-8 ####[facility] LABCLIA [id number] [place] [address] Basophils/100 WBC (Bld) 0.2 % [facility] Comment on above: Order Comment: Fabricio tapia Type: BLOOD SPECIMENOrdering Facility: [facility] Address: [address] [place], [place] [address] Performed By: #### 5 7021-8 ####[facility] LABCLIA [id number] [place] [address] Differential cell count method Nom (Bld) Auto Normal [facility] Comment on above: Order Comment: Speci men Type: BLOOD SPECIMENOrdering Facility: [facility] Address: [address] [place] [address] Performed By: #### 5 7021-8 ####[facility] LABCLIA [id number] [place] [address] Eosinophils (Bld) [#/Vol] 0.04 10*3/uL Normal <0.46 [facility] Comment on above: Order Comment: Speci men Type: BLOOD SPECIMENOrdering Facility: [facility] Address: [address] [place] [address] Performed By: #### 5 7021-8 ####[facility] LABCLIA [id number] [place] [address] Eosinophils/100 WBC (Bld) 0.8 % Normal [facility] Comment on above: Order Comment: Speci men Type: BLOOD SPECIMENOrdering Facility: [facility] Address: [address] [place] [address] Performed By: #### 5 7021-8 ####[facility] LABCLIA [id number] [place] [address] Erythrocyte distribution width (RBC) [Ratio] 14.3 % Normal 11.5-15.0 [facility] Comment on above: Order Comment: Speci men Type: BLOOD SPECIMENOrdering Facility: [facility] Address: [address] [place] [address] Performed By: #### 5 7021-8 ####[facility] LABCLIA [id number] [place] [address] Hematocrit (Bld) [Volume fraction] 34.0 % Low 36.0-46.0 [facility] Comment on above: Order Comment: Speci men Type: BLOOD SPECIMENOrdering Facility: [facility] Address: [address] [place] [address] Performed By: #### 5 7021-8 ####[facility] LABCLIA [id number] [place] [address] Hemoglobin (Bld) [Mass/Vol] 10.8 g/dL Low 11.5-15.5 [facility] Comment on above: Order Comment: Speci men Type: BLOOD SPECIMENOrdering Facility: [facility] Address: [address] [place] [address] Performed By: #### 5 7021-8 ####[facility] LABCLIA [id number] [place] [address] Immature granulocytes (Bld) [#/Vol] 10*3/uL Normal <0.10 [facility] Comment on above: Order Comment: Speci men Type: BLOOD SPECIMENOrdering Facility: [facility] Address: [address] [place] [address] Performed By: #### 5 7021-8 ####[facility] LABCLIA [id number] [place] [address] Immature granulocytes/100 WBC (Bld) 0.2 % Normal [facility] Comment on above: Order Comment: Speci men Type: BLOOD SPECIMENOrdering Facility: [facility] Address: [address] [place] [address] Performed By: #### 5 7021-8 ####[facility] LABCLIA [id number] [place] [address] Lymphocytes (Bld) [#/Vol] 2.11 10*3/uL Normal 1.00-4.00 [facility] Comment on above: Order Comment: Speci men Type: BLOOD SPECIMENOrdering Facility: [facility] Address: [address] [place] [address] Performed By: #### 5 7021-8 ####[facility] LABCLIA [id number] [place] [address] Lymphocytes/100 WBC (Bld) 43.2 % Normal [facility] Comment on above: Order Comment: Speci men Type: BLOOD SPECIMENOrdering Facility: [facility] Address: [address] [place] [address] Performed By: #### 5 7021-8 ####[facility] LABCLIA [id number] [place] [address] MCH (RBC) [Entitic mass] 32.1 pg Normal 26.0-34.0 [facility] Comment on above: Order Comment: Speci men Type: BLOOD SPECIMENOrdering Facility: [facility] Address: [address] [place] [address] Performed By: #### 5 7021-8 ####[facility] LABCLIA [id number] [place] [address] MCHC (RBC) [Mass/Vol] 31.8 g/dL Normal 30.5-36.0 [facility] Comment on above: Order Comment: Speci men Type: BLOOD SPECIMENOrdering Facility: [facility] Address: [address] [place] [address] Performed By: #### 5 7021-8 ####[facility] LABIA [id number] [place] [address] MCV (RBC) [Entitic vol] 101.2 fL High 80.0-100.0 C [facility] Comment on above: Order Comment: Speci men Type: BLOOD SPECIMENOrdering Facility: [facility] Address: [address] [place] [address] Performed By: #### 5 7021-8 ####[facility] LABCLIA [id number] [place] [address] Monocytes (Bld) [#/Vol] 0.24 10*3/uL Normal <0.87 [facility] Comment on above: Order Comment: Speci men Type: BLOOD SPECIMENOrdering Facility: [facility] Address: [address] [place] [address] Performed By: #### 5 7021-8 ####[facility] LABCLIA [id number] [place] [address] Monocytes/100 WBC (Bld) 4.9 % Normal [facility] Comment on above: Order Comment: Speci men Type: BLOOD SPECIMENOrdering Facility: [facility] Address: [address] [place] [address] Performed By: #### 5 7021-8 ####[facility] LABCLIA [id number] [place] [address] Neutrophils (Bld) [#/Vol] 2.47 10*3/uL Normal 1.45-7.50 [facility] Comment on above: Order Comment: Speci men Type: BLOOD SPECIMENOrdering Facility: [facility] Address: [address] [place] [address] Performed By: #### 5 7021-8 ####[facility] LABCLIA [id number] [place] [address] Neutrophils/100 WBC (Bld) 50.7 % Normal [facility] Comment on above: Order Comment: Speci men Type: BLOOD SPECIMENOrdering Facility: [facility] Address: [address] [place] [address] Performed By: #### 5 7021-8 ####[facility] LABCLIA [id number] [place] [address] Nucleated RBC (Bld) [#/Vol] 10*3/uL Normal <0.01 [facility] Comment on above: Order Comment: Speci men Type: BLOOD SPECIMENOrdering Facility: [facility] Address: [address] [place] [address] Performed By: #### 5 7021-8 ####[facility] LABCLIA [id number] [place] [address] Nucleated RBC/100 WBC (Bld) [Ratio] 0.0 /100 WBC Normal [facility] Comment on above: Order Comment: Speci men Type: BLOOD SPECIMENOrdering Facility: [facility] Address: [address] [place] [address] Performed By: #### 5 7021-8 ####[facility] LABCLIA [id number] [place] [address] Platelet mean volume (Bld) [Entitic vol] 9.3 fL Normal 9.0-12.7 [facility] Comment on above: Order Comment: Speci men Type: BLOOD SPECIMENOrdering Facility: [facility] Address: [address] [place] [address] Performed By: #### 5 7021-8 ####[facility] LABCLIA [id number] [place] [address] Platelets (Bld) [#/Vol] 163 10*3/uL Normal 150-400 [facility] Comment on above: Order Comment: Speci men Type: BLOOD SPECIMENOrdering Facility: [facility] Address: [address] [place] [address] Performed By: #### 5 7021-8 ####[facility] LABIA [id number] [place] [address] RBC (Bld) [#/Vol] 3.36 10*6/uL Low 3.90-5.20 [facility] Comment on above: Order Comment: Speci men Type: BLOOD SPECIMENOrdering Facility: [facility] Address: [address] [place] [address] Performed By: #### 5 7021-8 ####[facility] LABIA [id number] [place] [address] WBC (Bld) [#/Vol] 4.88 10*3/uL Normal 3.70-11.00 [facility] Comment on above: Order Comment: Speci men Type: BLOOD SPECIMENOrdering Facility: [facility] Address: [address] [place] [address] Performed By: #### 5 7021-8 ####[facility] LABIA [id number] [place] [address] XR LUMBAR SPINE 2 OR 3Von [address] [address] XRay Report Signed Patient: ANDREI FISH MR#: [id number] : 1950 Acct:[id number] Age/Sex: 74 / F ADM Date: 01/15/25 Loc: [facility] Attending Dr: Stephanie Dumont NP Ordering Physician: Stephanie Dumont NP Date of Service: 01/15/25 Procedure(s): XR lumbar spine 2-3V Accession Number(s): [id number] cc: Stephanie Dumont NP [place] [address] Patient Name: ANDREI FISH MRN: [facility]:[id number] date: 1950 Sex: F Assigned Patient Location: [facility] Current Patient Location: [facility] Accession/Order Number: [id number] Exam Date: 01/15/2025 16:23 Report Date: 01/15/2025 16:25 At the request of: STEPHANIE DUMONT NP Procedure: XR lumbar spine 2-3V 3 views Lumbar Spine HISTORY: Chronic bilateral leg weakness and greater on the left COMPARISON: None POSTSURGICAL CHANGES: None BONY ALIGNMENT: Adequate HYPERMOBILITY:No bending imaging. LISTHESIS:Mild degenerative listhesis FRACTURE: None DEGENERATIVE CHANGES: Moderate lower lumbar spondylosis. Extensive lower lumbar facet degeneration SOFT TISSUES: 3.9 cm fusiform aneurysmal dilatation of the infrarenal abdominal aorta. BONY MINERALIZATION:Diffuse osteopenia XR/XR lumbar spine 2-3V IMPRESSION: Degenerative changes greatest at the lower lumbar facets. Diffuse osteopenia. 3.9 cm fusiform aneurysmal dilatation of abdominal aorta. Impression dictated by: Valentin Peralta M.D. 01/15/2025 4:25 PM Dictation Location: [place] [address] Electronically authenticated by: [id number] Y Date: 01/15/2025 16:25 Dictated By: Valentin Peralta D.O. Signed By: 01/15/25 1628 DD/ 24 TD/TT: Gold Charmer: [facility] Radiology, Radiologist, MD - 01/15/2025 [place] [address] XRay Report Signed Patient: ANDREI FISH MR#: [id number] : 1950 Acct:[id number] Age/Sex: 74 / F ADM Date: 01/15/25 Loc: [facility] Attending Dr: Stephanie Dumont NP Ordering Physician: Stephanie Dumont NP Date of Service: 01/15/25 Procedure(s): XR lumbar spine 2-3V Accession Number(s): [id number] cc: Stephanie Dumont NP [place] [address] Patient Name: ANDREI FISH MRN: [facility]:[id number] date: 1950 Sex: F Assigned Patient Location: [facility] Current Patient Location: [facility] Accession/Order Number: [id number] Exam Date: 01/15/2025 16:23 Report Date: 01/15/2025 16:25 At the request of: STEPHANIE DUMONT NP Procedure: XR lumbar spine 2-3V 3 views Lumbar Spine HISTORY: Chronic bilateral leg weakness and greater on the left COMPARISON: None POSTSURGICAL CHANGES: None BONY ALIGNMENT: Adequate HYPERMOBILITY:No bending imaging. LISTHESIS:Mild degenerative listhesis FRACTURE: None DEGENERATIVE CHANGES: Moderate lower lumbar spondylosis. Extensive lower lumbar facet degeneration SOFT TISSUES: 3.9 cm fusiform aneurysmal dilatation of the infrarenal abdominal aorta. BONY MINERALIZATION:Diffuse osteopenia XR/XR lumbar spine 2-3V IMPRESSION: Degenerative changes greatest at the lower lumbar facets. Diffuse osteopenia. 3.9 cm fusiform aneurysmal dilatation of abdominal aorta. Impression dictated by: Valentin Peralta M.D. 01/15/2025 4:25 PM Dictation Location: [place] [address] Electronically authenticated by: [id number] Y Date: 01/15/2025 16:25 Dictated By: Valentin Peralta D.O. Signed By: 01/15/25 1628 DD/ 24 TD/TT: Gold Charmer: [facility] Radiology Study observation (narrative) [facility] XR LUMBAR SPINE 2 OR 3VOrder ed By: Radiologist Radiology on 01-15-2025 [facility] Work Phone: CBC W Auto Differential pane l (Bld)on 01-03-2025 Basophils (Bld) [#/Vol] 10*3/uL Normal <0.11 [facility] Comment on above: Order Comment: Speci men Type: BLOOD SPECIMENOrdering Facility: [facility] Address: [address] [place] [address] Performed By: #### 5 7021-8 ####[facility] LABCLIA [id number] [place] [address] Basophils/100 WBC (Bld) 0.4 % Normal [facility] Comment on above: Order Comment: Speci men Type: BLOOD SPECIMENOrdering Facility: [facility] Address: [address] [place] [address] Performed By: #### 5 7021-8 ####[facility] LABCLIA [id number] [place] [address] Differential cell count method Nom (Bld) Auto Normal [facility] Comment on above: Order Comment: Speci men Type: BLOOD SPECIMENOrdering Facility: [facility] Address: [address] [place] [address] Performed By: #### 5 7021-8 ####[facility] LABCLIA [id number] [place] [address] Eosinophils (Bld) [#/Vol] 0.04 10*3/uL Normal <0.46 [facility] Comment on above: Order Comment: Speci men Type: BLOOD SPECIMENOrdering Facility: [facility] Address: [address] [place] [address] Performed By: #### 5 7021-8 ####[facility] LABCLIA [id number] [place] [address] Eosinophils/100 WBC (Bld) 0.8 % Normal [facility] Comment on above: Order Comment: Speci men Type: BLOOD SPECIMENOrdering Facility: [facility] Address: [address] [place] [address] Performed By: #### 5 7021-8 ####[facility] LABCLIA [id number] [place] [address] Erythrocyte distribution width (RBC) [Ratio] 14.8 % Normal 11.5-15.0 [facility] Comment on above: Order Comment: Speci men Type: BLOOD SPECIMENOrdering Facility: [facility] Address: [address] [place] [address] Performed By: #### 5 7021-8 ####[facility] LABCLIA [id number] [place] [address] Hematocrit (Bld) [Volume fraction] 32.9 % Low 36.0-46.0 [facility] Comment on above: Order Comment: Speci men Type: BLOOD SPECIMENOrdering Facility: [facility] Address: [address] [place] [address] Performed By: #### 5 7021-8 ####[facility] LABCLIA [id number] [place] [address] Hemoglobin (Bld) [Mass/Vol] 10.6 g/dL Low 11.5-15.5 [facility] Comment on above: Order Comment: Speci men Type: BLOOD SPECIMENOrdering Facility: [facility] Address: [address] [place] [address] Performed By: #### 5 7021-8 ####[facility] LABCLIA [id number] [place] [address] Immature granulocytes (Bld) [#/Vol] 10*3/uL Normal <0.10 [facility] Comment on above: Order Comment: Speci men Type: BLOOD SPECIMENOrdering Facility: [facility] Address: [address] [place] [address] Performed By: #### 5 7021-8 ####[facility] LABCLIA [id number] [place] [address] Immature granulocytes/100 WBC (Bld) 0.2 % Normal [facility] Comment on above: Order Comment: Speci men Type: BLOOD SPECIMENOrdering Facility: [facility] Address: [address] [place] [address] Performed By: #### 5 7021-8 ####[facility] LABCLIA [id number] [place] [address] Lymphocytes (Bld) [#/Vol] 2.42 10*3/uL Normal 1.00-4.00 [facility] Comment on above: Order Comment: Speci men Type: BLOOD SPECIMENOrdering Facility: [facility] Address: [address] [place] [address] Performed By: #### 5 7021-8 ####[facility] LABIA [id number] [place] [address] Lymphocytes/100 WBC (Bld) 46.4 % Normal [facility] Comment on above: Order Comment: Speci men Type: BLOOD SPECIMENOrdering Facility: [facility] Address: [address] [place] [address] Performed By: #### 5 7021-8 ####[facility] LABCLIA [id number] [place] [address] MCH (RBC) [Entitic mass] 31.9 pg Normal 26.0-34.0 [facility] Comment on above: Order Comment: Speci men Type: BLOOD SPECIMENOrdering Facility: [facility] Address: [address] [place] [address] Performed By: #### 5 7021-8 ####[facility] LABIA [id number] [place] [address] MCHC (RBC) [Mass/Vol] 32.2 g/dL Normal 30.5-36.0 [facility] Comment on above: Order Comment: Speci men Type: BLOOD SPECIMENOrdering Facility: [facility] Address: [address] [place] [address] Performed By: #### 5 7021-8 ####[facility] LABCLIA [id number] [place] [address] MCV (RBC) [Entitic vol] 99.1 fL Normal 80.0-100.0 C [facility] Comment on above: Order Comment: Speci men Type: BLOOD SPECIMENOrdering Facility: [facility] Address: [address] [place] [address] Performed By: #### 5 7021-8 ####[facility] LABCLIA [id number] [place] [address] Monocytes (Bld) [#/Vol] 0.24 10*3/uL Normal <0.87 [facility] Comment on above: Order Comment: Speci men Type: BLOOD SPECIMENOrdering Facility: [facility] Address: [address] [place] [address] Performed By: #### 5 7021-8 ####[facility] LABCLIA [id number] [place] [address] Monocytes/100 WBC (Bld) 4.6 % Normal [facility] Comment on above: Order Comment: Speci men Type: BLOOD SPECIMENOrdering Facility: [facility] Address: [address] [place] [address] Performed By: #### 5 7021-8 ####[facility] LABCLIA [id number] [place] [address] Neutrophils (Bld) [#/Vol] 2.49 10*3/uL Normal 1.45-7.50 [facility] Comment on above: Order Comment: Speci men Type: BLOOD SPECIMENOrdering Facility: [facility] Address: [address] [place] [address] Performed By: #### 5 7021-8 ####[facility] LABCLIA [id number] [place] [address] Neutrophils/100 WBC (Bld) 47.6 % Normal [facility] Comment on above: Order Comment: Speci men Type: BLOOD SPECIMENOrdering Facility: [facility] Address: [address] [place] [address] Performed By: #### 5 7021-8 ####[facility] LABCLIA [id number] [place] [address] Nucleated RBC (Bld) [#/Vol] 10*3/uL Normal <0.01 [facility] Comment on above: Order Comment: Speci men Type: BLOOD SPECIMENOrdering Facility: [facility] Address: [address] [place] [address] Performed By: #### 5 7021-8 ####[facility] LABCLIA [id number] [place] [address] Nucleated RBC/100 WBC (Bld) [Ratio] 0.0 /100 WBC Normal [facility] Comment on above: Order Comment: Speci men Type: BLOOD SPECIMENOrdering Facility: [facility] Address: [address] [place] [address] Performed By: #### 5 7021-8 ####[facility] LABCLIA [id number] [place] [address] Platelet mean volume (Bld) [Entitic vol] 8.7 fL Low 9.0-12.7 [facility] Comment on above: Order Comment: Speci men Type: BLOOD SPECIMENOrdering Facility: [facility] Address: [address] [place] [address] Performed By: #### 5 7021-8 ####[facility] LABCLIA [id number] [place] [address] Platelets (Bld) [#/Vol] 132 10*3/uL Low 150-400 [facility] Comment on above: Order Comment: Speci men Type: BLOOD SPECIMENOrdering Facility: [facility] Address: [address] [place] [address] Performed By: #### 5 7021-8 ####[facility] LABCLIA [id number] [place] [address] RBC (Bld) [#/Vol] 3.32 10*6/uL Low 3.90-5.20 [facility] Comment on above: Order Comment: Speci men Type: BLOOD SPECIMENOrdering Facility: [facility] Address: [address] [place] [address] Performed By: #### 5 7021-8 ####[facility] LABCLIA [id number] [place] [address] WBC (Bld) [#/Vol] 5.22 10*3/uL Normal 3.70-11.00 [facility] Comment on above: Order Comment: Speci men Type: BLOOD SPECIMENOrdering Facility: [facility] Address: [address] [place] [address] Performed By: #### 5 7021-8 ####[facility] LABIA [id number] [place] [address] CNOVSPon 01-03-2025 CNOVSP Normal [facility] Comprehensive metabolic 2000 panelon 01-03-2025 Albumin [Mass/Vol] 3.7 g/dL Low 3.9-4.9 [facility] Comment on above: Order Comment: Speci men Type: BLOOD SPECIMENOrdering Facility: [facility] Address: [address] [place] [address] Performed By: #### 3 016-3 ####[facility] LABCLIA [id number] [place] [id number] [place]#### [address]-4 ####[facility] LABCLIA [id number] [place] [address] ALP [Catalytic activity/Vol] 79 U/L Normal 34-123 [facility] Comment on above: Order Comment: Speci men Type: BLOOD SPECIMENOrdering Facility: [facility] Address: [address] [place] [address] Performed By: #### 3 016-3 ####[facility] LABCLIA [id number] [address] [address] [place]#### 34116-7 ####[facility] LABCLIA [id number] [place] [address] ALT [Catalytic activity/Vol] 11 U/L Normal 7-38 [facility] Comment on above: Order Comment: Speci men Type: BLOOD SPECIMENOrdering Facility: [facility] Address: [address] [place] [address] Performed By: #### 3 016-3 ####[facility] LABCLIA [id number] [place] [address] [place]#### 50543-1 ####[facility] LABCLIA [id number] [place] [address] Anion gap [Moles/Vol] 8 mmol/L Normal 8-15 [facility] Comment on above: Order Comment: Speci men Type: BLOOD SPECIMENOrdering Facility: [facility] Address: [address] [place] [address] Performed By: #### 3 016-3 ####[facility] LABCLIA [id number] [place] [id number] [place]#### 09395-8 ####[facility] LABCLIA [id number] [place] [address] AST [Catalytic activity/Vol] 18 U/L Normal 13-35 [facility] Comment on above: Order Comment: Speci men Type: BLOOD SPECIMENOrdering Facility: [facility] Address: [address] [place] [address] Performed By: #### 3 016-3 ####[facility] LABCLIA [id number] [place] [id number] [place]#### 63408-0 ####[facility] LABCLIA [id number] [place] [address] Bilirubin [Mass/Vol] 0.3 mg/dL Normal 0.2-1.3 [facility] Comment on above: Order Comment: Speci men Type: BLOOD SPECIMENOrdering Facility: [facility] Address: [address] [place] [address] Performed By: #### 3 016-3 ####[facility] LABCLIA [id number] [place] [address] [place]#### 90550-7 ####[facility] LABCLIA [id number] [place] [address] Calcium [Mass/Vol] 9.5 mg/dL Normal 8.5-10.2 [facility] Comment on above: Order Comment: Speci men Type: BLOOD SPECIMENOrdering Facility: [facility] Address: [address] [place] [address] Performed By: #### 3 016-3 ####[facility] LABCLIA [id number] [place] [address] [place]#### 17342-7 ####[facility] LABCLIA [id number] [place] [address] Chloride [Moles/Vol] 107 mmol/L Normal 98-107 [facility] Comment on above: Order Comment: Speci men Type: BLOOD SPECIMENOrdering Facility: [facility] Address: [address] [place], [place] [address] Performed By: #### 3 016-3 ####[facility] LABCLIA [id number] [place] [address] [place]#### 50809-3 ####[facility] LABCLIA [id number] [place] [address] CO2 [Moles/Vol] 23 mmol/L Normal 22-30 [facility] Comment on above: Order Comment: Speci men Type: BLOOD SPECIMENOrdering Facility: [facility] Address: [address] [place] [address] Performed By: #### 3 016-3 ####[facility] LABCLIA [id number] [place] [id number] [facility]#### 02367-4 ####[facility] LABCLIA [id number] [place] [address] Creatinine [Mass/Vol] 1.53 mg/dL High 0.58-0.96 [facility] Comment on above: Order Comment: Speci men Type: BLOOD SPECIMENOrdering Facility: [facility] Address: [address] [place] [address] Performed By: #### 3 016-3 ####[facility] LABCLIA [id number] [address]#### 387[address]-4 ####[facility] LABCLIA [id number] [place] [address] Creatinine and Glomerular filtration rate.predicted panel (S/P/Bld) 36 mL/min/1.73m??? Low >=60 [facility] Comment on above: Order Comment: Speci men Type: BLOOD SPECIMENOrdering Facility: [facility] Address: [address] [place] [address] Result Comment: Miryam mated Glomerular Filtration Rate [...] accurately reflect actual GFR. Performed By: #### 3 016-3 ####[facility] LABCLIA [id number] [address]#### 10460-5 ####[facility] LABCLIA [id number] [place] [address] Glucose [Mass/Vol] 103 mg/dL High 74-99 [facility] Comment on above: Order Comment: Speci men Type: BLOOD SPECIMENOrdering Facility: [facility] Address: [address] [place] [address] Result Comment: The [place] Diabetes Association (ADA) provides guidance for cutoff [...] Standards of Medical Care in Diabetes 2016, [place] [employer]. Diabetes Care. 2016.39(Suppl 1). Performed By: #### 3 016-3 ####[facility] LABCLIA [id number] [place] [address] [place]#### 99712-4 ####[facility] LABCLIA [id number] [place] [address] Potassium [Moles/Vol] 4.1 mmol/L Normal 3.7-5.1 [facility] Comment on above: Order Comment: Speci men Type: BLOOD SPECIMENOrdering Facility: [facility] Address: [address] [place] [address] Performed By: #### 3 016-3 ####[facility] LABCLIA [id number] [place] [address] [place]#### 72033-7 ####[facility] LABCLIA [id number] [place] [address] Protein [Mass/Vol] 7.3 g/dL Normal 6.3-8.0 [facility] Comment on above: Order Comment: Speci men Type: BLOOD SPECIMENOrdering Facility: [facility] Address: [address] [place] [address] Performed By: #### 3 016-3 ####[facility] LABCLIA [id number] [place] [address] [place]#### 65963-7 ####[facility] LABCLIA [id number] [place] [address] Sodium [Moles/Vol] 138 mmol/L Normal 136-144 [facility] Comment on above: Order Comment: Speci men Type: BLOOD SPECIMENOrdering Facility: [facility] Address: [address] [place] [address] Performed By: #### 3 016-3 ####[facility] LABCLIA [id number] [place] [address] [place]#### [id number] ####[facility] LABCLIA [id number] [place] [address] Urea nitrogen [Mass/Vol] 46 mg/dL High 7-21 [facility] Comment on above: Order Comment: Speci men Type: BLOOD SPECIMENOrdering Facility: [facility] Address: [address] [place] [address] Performed By: #### 3 016-3 ####[facility] LABCLIA [id number] [place] [address] [place]#### [id number] ####[facility] LABCLIA [id number] [place] [address] Ferritin SerPl-mCncon 2024 Ferritin [Mass/Vol] 63.6 ng/mL Normal 14.7-205.1 [facility] Comment on above: Order Comment: Speci men Type: BLOOD SPECIMENOrdering Facility: [facility] Address: [address] [place], [place] [address] Performed By: #### 2 284-8, 24995-0, 4, 2132-03 ####[facility] LABCLIA [id number] [address] [place] [address] [place] [facility] Folate [Mass/Vol] 4.1 ng/mL Low >4.7 [facility] Comment on above: Order Comment: Speci men Type: BLOOD SPECIMENOrdering Facility: [facility] Address: [address] [place] [address] Performed By: #### 2 284-8, 53728-7, 2275-10, 2132-03 ####[facility] LABCLIA [id number] [address] [place] [address] [place] Iron [facility] 01-03-2025 Iron [Mass/Vol] 57 ug/dL Normal 41-186 [facility] Comment on above: Order Comment: Speci men Type: BLOOD SPECIMENOrdering Facility: [facility] Address: [address] [place] [address] Performed By: #### 2 284-8, 70129-2, 2275-10, 2132-03 ####[facility] LABCLIA [id number] [address], [facility] [address] [place] Iron binding capacity [Mass/Vol] 316 ug/dL Normal 232-386 [facility] Comment on above: Order Comment: Speci men Type: BLOOD SPECIMENOrdering Facility: [facility] Address: [address] [place] [address] Performed By: #### 2 284-8, 24081-1, 2275-10, 2132-03 ####[facility] LABCLIA [id number] [address] [place] [address] [place] Iron/TIBC [Molar ratio] 18.0 % Normal 15.0-57.0 C [facility] Comment on above: Order Comment: Speci men Type: BLOOD SPECIMENOrdering Facility: [facility] Address: [address] [place] [address] Performed By: #### 2 284-8, 49919-9, 4, 2132-03 ####[facility] LABCLIA [id number] [place] [address] [place] THYROID STIMULATING HORMONEo n 01-03-2025 TSH Qn 0.371 m[IU]/L [facility] TSH Qnon 01-03-2025 Interpretation and review of laboratory results Normal [facility] TSH SerPl-aCncon 01-03-2025 TSH Qn 0.371 m[IU]/L Normal 0.270-4.200 [facility] Comment on above: Order Comment: Speci men Type: BLOOD SPECIMENOrdering Facility: [facility] Address: [address] [place] [address] Performed By: #### 3 016-3 ####[facility] LABCLIA [id number] [place] [address] [place]#### 22349-9 ####[facility] LABCLIA [id number] [place] [address] Vit B12 SerPl-mCncon 025 Cobalamin (Vitamin B12) [Mass/Vol] 1229 pg/mL Normal 232-1245 [facility] Comment on above: Order Comment: Speci men Type: BLOOD SPECIMENOrdering Facility: [facility] Address: [address] [place] [address] Performed By: #### 2 284-8, 13643-1, 2275-10, 2132-03 ####[facility] LABCLIA [id number] [place] [id number] [place] E COLI SHIGA TOXIN EIAon E COLI SHIGA TOXIN EIA E coli Shiga Toxin EIA [facility] E COLI SHIGA TOXIN EIA Negative NO [facility] E COLI SHIGA TOXIN EIA Performed at: [facility] E COLI SHIGA TOXIN EIA [address] [place], [place] [id number] [facility] E COLI SHIGA TOXIN EIA Check Writing Machine Operator: Gallito Garrett PhD, Phone: [phone] [facility] HbA1c (Bld) [Mass fraction]o n 12-25-2024 Interpretation and review of laboratory results Normal [facility] Hematology and Cell countson 12-25-2024 HbA1c (Bld) [Mass fraction] 5.7 % [facility] CBC W Auto Differential pane l (Bld)on 12-20-2024 Basophils (Bld) [#/Vol] 10*3/uL Normal <0.11 C [facility] Comment on above: Order Comment: Speci men Type: BLOOD SPECIMENOrdering Facility: [facility] Address: [address] [place] [address] Performed By: #### 5 7021-8 ####[facility] LABCLIA [id number] [place] [address] Basophils/100 WBC (Bld) 0.0 % Normal [facility] Comment on above: Order Comment: Speci men Type: BLOOD SPECIMENOrdering Facility: [facility] Address: [address] [place] [address] Performed By: #### 5 7021-8 ####[facility] LABCLIA [id number] [place] [address] Differential cell count method Nom (Bld) Auto Normal [facility] Comment on above: Order Comment: Speci men Type: BLOOD SPECIMENOrdering Facility: [facility] Address: [address] [place] [address] Performed By: #### 5 7021-8 ####[facility] LABCLIA [id number] [place] [address] Eosinophils (Bld) [#/Vol] 0.04 10*3/uL Normal <0.46 [facility] Comment on above: Order Comment: Speci men Type: BLOOD SPECIMENOrdering Facility: [facility] Address: [address] [place] [address] Performed By: #### 5 7021-8 ####[facility] LABCLIA [id number] [place] [address] Eosinophils/100 WBC (Bld) 0.8 % Normal [facility] Comment on above: Order Comment: Speci men Type: BLOOD SPECIMENOrdering Facility: [facility] Address: [address] [place] [address] Performed By: #### 5 7021-8 ####[facility] LABCLIA [id number] [place] [address] Erythrocyte distribution width (RBC) [Ratio] 14.3 % Normal 11.5-15.0 [facility] Comment on above: Order Comment: Speci men Type: BLOOD SPECIMENOrdering Facility: [facility] Address: [address] [place] [address] Performed By: #### 5 7021-8 ####[facility] LABCLIA [id number] [place] [address] Hematocrit (Bld) [Volume fraction] 33.8 % Low 36.0-46.0 [facility] Comment on above: Order Comment: Speci men Type: BLOOD SPECIMENOrdering Facility: [facility] Address: [address] [place] [address] Performed By: #### 5 7021-8 ####[facility] LABCLIA [id number] [place] [address] Hemoglobin (Bld) [Mass/Vol] 10.8 g/dL Low 11.5-15.5 [facility] Comment on above: Order Comment: Speci men Type: BLOOD SPECIMENOrdering Facility: [facility] Address: [address] [place] [address] Performed By: #### 5 7021-8 ####[facility] LABCLIA [id number] [place] [address] Immature granulocytes (Bld) [#/Vol] 10*3/uL Normal <0.10 [facility] Comment on above: Order Comment: Speci men Type: BLOOD SPECIMENOrdering Facility: [facility] Address: [address] [place] [address] Performed By: #### 5 7021-8 ####[facility] LABCLIA [id number] [place] [address] Immature granulocytes/100 WBC (Bld) 0.4 % Normal [facility] Comment on above: Order Comment: Speci men Type: BLOOD SPECIMENOrdering Facility: [facility] Address: [address] [place] [address] Performed By: #### 5 7021-8 ####[facility] LABCLIA [id number] [place] [address] Lymphocytes (Bld) [#/Vol] 1.86 10*3/uL Normal 1.00-4.00 [facility] Comment on above: Order Comment: Speci men Type: BLOOD SPECIMENOrdering Facility: [facility] Address: [address] [place] [address] Performed By: #### 5 7021-8 ####[facility] LABCLIA [id number] [place] [address] Lymphocytes/100 WBC (Bld) 38.9 % Normal [facility] Comment on above: Order Comment: Speci men Type: BLOOD SPECIMENOrdering Facility: [facility] Address: [address] [place] [address] Performed By: #### 5 7021-8 ####[facility] LABCLIA [id number] [place] [address] MCH (RBC) [Entitic mass] 32.5 pg Normal 26.0-34.0 [facility] Comment on above: Order Comment: Speci men Type: BLOOD SPECIMENOrdering Facility: [facility] Address: [address] [place] [address] Performed By: #### 5 7021-8 ####[facility] LABCLIA [id number] [place] [address] MCHC (RBC) [Mass/Vol] 32.0 g/dL Normal 30.5-36.0 [facility] Comment on above: Order Comment: Speci men Type: BLOOD SPECIMENOrdering Facility: [facility] Address: [address] [place] [address] Performed By: #### 5 7021-8 ####[facility] LABCLIA [id number] [place] [address] MCV (RBC) [Entitic vol] 101.8 fL High 80.0-100.0 C [facility] Comment on above: Order Comment: Speci men Type: BLOOD SPECIMENOrdering Facility: [facility] Address: [address] [place] [address] Performed By: #### 5 7021-8 ####[facility] LABIA [id number] [place] [address] Monocytes (Bld) [#/Vol] 0.22 10*3/uL Normal <0.87 [facility] Comment on above: Order Comment: Speci men Type: BLOOD SPECIMENOrdering Facility: [facility] Address: [address] [place] [address] Performed By: #### 5 7021-8 ####[facility] LABCLIA [id number] [place] [address] Monocytes/100 WBC (Bld) 4.6 % Normal C [facility] Comment on above: Order Comment: Speci men Type: BLOOD SPECIMENOrdering Facility: [facility] Address: [address] [place] [address] Performed By: #### 5 7021-8 ####[facility] LABCLIA [id number] [place] [address] Neutrophils (Bld) [#/Vol] 2.64 10*3/uL Normal 1.45-7.50 [facility] Comment on above: Order Comment: Speci men Type: BLOOD SPECIMENOrdering Facility: [facility] Address: [address] [place] [address] Performed By: #### 5 7021-8 ####[facility] LABCLIA [id number] [place] [address] Neutrophils/100 WBC (Bld) 55.3 % Normal [facility] Comment on above: Order Comment: Speci men Type: BLOOD SPECIMENOrdering Facility: [facility] Address: [address] [place] [address] Performed By: #### 5 7021-8 ####[facility] LABCLIA [id number] [place] [address] Nucleated RBC (Bld) [#/Vol] 10*3/uL Normal <0.01 [facility] Comment on above: Order Comment: Speci men Type: BLOOD SPECIMENOrdering Facility: [facility] Address: [address] [place] [address] Performed By: #### 5 7021-8 ####[facility] LABCLIA [id number] [place] [address] Nucleated RBC/100 WBC (Bld) [Ratio] 0.0 /100 WBC Normal [facility] Comment on above: Order Comment: Speci men Type: BLOOD SPECIMENOrdering Facility: [facility] Address: [address] [place] [address] Performed By: #### 5 7021-8 ####[facility] LABCLIA [id number] [place] [address] Platelet mean volume (Bld) [Entitic vol] 8.9 fL Low 9.0-12.7 [facility] Comment on above: Order Comment: Speci men Type: BLOOD SPECIMENOrdering Facility: [facility] Address: [address] [place] [address] Performed By: #### 5 7021-8 ####[facility] LABCLIA [id number] [place] [address] Platelets (Bld) [#/Vol] 156 10*3/uL Normal 150-400 [facility] Comment on above: Order Comment: Speci men Type: BLOOD SPECIMENOrdering Facility: [facility] Address: [address] [place] [address] Performed By: #### 5 7021-8 ####[facility] LABIA [id number] [place] [address] RBC (Bld) [#/Vol] 3.32 10*6/uL Low 3.90-5.20 [facility] Comment on above: Order Comment: Speci men Type: BLOOD SPECIMENOrdering Facility: [facility] Address: [address] [place] [address] Performed By: #### 5 7021-8 ####[facility] LABIA [id number] [place] [address] WBC (Bld) [#/Vol] 4.78 10*3/uL Normal 3.70-11.00 [facility] Comment on above: Order Comment: Speci men Type: BLOOD SPECIMENOrdering Facility: [facility] Address: [address] [place] [address] Performed By: #### 5 7021-8 ####[facility] LABIA [id number] [place] [address] CT CHEST WO Hieu 12-12-2024 [place] [address] CT Scan Report Signed Patient: ANDREI FISH MR#: [id number] : 1950 Acct:[id number] Age/Sex: 74 / F ADM Date: 12/12/24 Loc: CT Attending Dr: Stephanie Dumont NP Ordering Physician: Stephanie Dumont NP Date of Service: 12/12/24 Procedure(s): CT chest wo con Accession Number(s): [id number] cc: Stephanie Dumont NP The [address] [address] Patient Name: ANDREI FISH MRN: [facility]:[id number] date: 1950 Sex: F Assigned Patient Location: CT Current Patient Location: CT Accession/Order Number: [id number] Exam Date: 12/12/2024 16:06 Report Date: 12/12/2024 [...] Peralta M.D. 12/12/2024 4:12 PM Dictation Location: [place] [address] Electronically authenticated by: [id number] Y Date: 12/12/2024 16:12 Dictated By: Valentin Peralta D.O. Signed By: 12/12/24 1614 DD/ 11 TD/TT: Gold Charmer: [facility] Radiology, Radiologist, MD - 12/12/[address] [address] [address] Scan Report Signed Patient: ANDREI FISH MR#: [id number] : 1950 Acct:[id number] Age/Sex: 74 / F ADM Date: 12/12/24 Loc: CT Attending Dr: Stephanie Dumont NP Ordering Physician: Stephanie Dumont NP Date of Service: 12/12/24 Procedure(s): CT chest wo con Accession Number(s): [id number] cc: Stephanie Dumont NP The [address] [address] Patient Name: ANDREI FISH MRN: [id number] date: 1950 Sex: F Assigned Patient Location: CT Current Patient Location: CT Accession/Order Number: [id number] Exam Date: 12/12/2024 16:06 Report Date: 12/12/2024 [...] Peralta M.D. 12/12/2024 4:12 PM Dictation Location: [place] [address] Electronically authenticated by: [id number] Y Date: 12/12/2024 16:12 Dictated By: Valentin Peralta D.O. Signed By: 12/12/241613 DD/ 11 TD/TT: Gold Charmer: [facility] Radiology Study observation (narrative) [facility] CT CHEST WO CONOrdered By: Jerrod adiologdoug Radiology on 12-12-[address] [facility] Work Phone: CBC W Auto Differential pane l (Bld)on 2024 Basophils (Bld) [#/Vol] 10*3/uL Normal <0.11 C [facility] Comment on above: Order Comment: Speci men Type: BLOOD SPECIMENOrdering Facility: [facility] Address: [address] [place] [address] Performed By: #### 1 4196-0, 59727-4 ####[facility] LABCLIA [id number] [place] [address] Basophils/100 WBC (Bld) 0.2 % Normal C [facility] Comment on above: Order Comment: Speci men Type: BLOOD SPECIMENOrdering Facility: [facility] Address: [address] [place] [address] Performed By: #### 1 4196-0, 75435-7 ####[facility] LABCLIA [id number] [place] [address] Differential cell count method Nom (Bld) Auto Normal [facility] Comment on above: Order Comment: Speci men Type: BLOOD SPECIMENOrdering Facility: [facility] Address: [address] [place] [address] Performed By: #### 1 4196-0, 01861-1 ####[facility] LABCLIA [id number] [place] [address] Eosinophils (Bld) [#/Vol] 0.05 10*3/uL Normal <0.46 [facility] Comment on above: Order Comment: Speci men Type: BLOOD SPECIMENOrdering Facility: [facility] Address: [address] [place] [address] Performed By: #### 1 4196-0, 60801-5 ####[facility] LABCLIA [id number] [place] [address] Eosinophils/100 WBC (Bld) 0.9 % Normal [facility] Comment on above: Order Comment: Speci men Type: BLOOD SPECIMENOrdering Facility: [facility] Address: [address] [place] [address] Performed By: #### 1 4196-0, 09028-8 ####[facility] LABCLIA [id number] [place] [address] Erythrocyte distribution width (RBC) [Ratio] 14.0 % Normal 11.5-15.0 [facility] Comment on above: Order Comment: Speci men Type: BLOOD SPECIMENOrdering Facility: [facility] Address: [address] [place] [address] Performed By: #### 1 4196-0, 03141-6 ####[facility] LABCLIA [id number] [place] [address] Hematocrit (Bld) [Volume fraction] 32.4 % Low 36.0-46.0 [facility] Comment on above: Order Comment: Speci men Type: BLOOD SPECIMENOrdering Facility: [facility] Address: [address] [place] [address] Performed By: #### 1 4196-0, 34522-1 ####[facility] LABCLIA [id number] [place] [address] Hemoglobin (Bld) [Mass/Vol] 10.4 g/dL Low 11.5-15.5 [facility] Comment on above: Order Comment: Speci men Type: BLOOD SPECIMENOrdering Facility: [facility] Address: [address] [place] [address] Performed By: #### 1 4196-0, 14824-8 ####[facility] LABCLIA [id number] [place] [address] Immature granulocytes (Bld) [#/Vol] 10*3/uL Normal <0.10 [facility] Comment on above: Order Comment: Speci men Type: BLOOD SPECIMENOrdering Facility: [facility] Address: [address] [place] [address] Performed By: #### 1 4196-0, 36131-1 ####[facility] LABCLIA [id number] [place] [address] Immature granulocytes/100 WBC (Bld) 0.2 % Normal [facility] Comment on above: Order Comment: Speci men Type: BLOOD SPECIMENOrdering Facility: [facility] Address: [address] [place] [address] Performed By: #### 1 4196-0, 29167-2 ####[facility] LABCLIA [id number] [place] [address] Lymphocytes (Bld) [#/Vol] 2.47 10*3/uL Normal 1.00-4.00 [facility] Comment on above: Order Comment: Speci men Type: BLOOD SPECIMENOrdering Facility: [facility] Address: [address] [place] [address] Performed By: #### 1 4196-0, 06123-1 ####[facility] LABCLIA [id number] [place] [address] Lymphocytes/100 WBC (Bld) 43.2 % Normal [facility] Comment on above: Order Comment: Speci men Type: BLOOD SPECIMENOrdering Facility: [facility] Address: [address] [place] [address] Performed By: #### 1 4196-0, 53756-8 ####[facility] LABCLIA [id number] [place] [address] MCH (RBC) [Entitic mass] 32.3 pg Normal 26.0-34.0 [facility] Comment on above: Order Comment: Speci men Type: BLOOD SPECIMENOrdering Facility: [facility] Address: [address] [place] [address] Performed By: #### 1 4196-0, 42293-9 ####[facility] LABCLIA [id number] [place] [address] MCHC (RBC) [Mass/Vol] 32.1 g/dL Normal 30.5-36.0 [facility] Comment on above: Order Comment: Speci men Type: BLOOD SPECIMENOrdering Facility: [facility] Address: [address] [place] [address] Performed By: #### 1 4196-0, 53611-7 ####[facility] LABCLIA [id number] [place] [address] MCV (RBC) [Entitic vol] 100.6 fL High 80.0-100.0 C [facility] Comment on above: Order Comment: Speci men Type: BLOOD SPECIMENOrdering Facility: [facility] Address: [address] [place] [address] Performed By: #### 1 4196-0, 31741-7 ####[facility] LABCLIA [id number] [place] [address] Monocytes (Bld) [#/Vol] 0.28 10*3/uL Normal <0.87 [facility] Comment on above: Order Comment: Speci men Type: BLOOD SPECIMENOrdering Facility: [facility] Address: [address] [place] [address] Performed By: #### 1 4196-0, 52785-1 ####[facility] LABCLIA [id number] [place] [address] Monocytes/100 WBC (Bld) 4.9 % Normal C [facility] Comment on above: Order Comment: Speci men Type: BLOOD SPECIMENOrdering Facility: [facility] Address: [address] [place] [address] Performed By: #### 1 4196-0, 36667-1 ####[facility] LABCLIA [id number] [place] [address] Neutrophils (Bld) [#/Vol] 2.90 10*3/uL Normal 1.45-7.50 [facility] Comment on above: Order Comment: Speci men Type: BLOOD SPECIMENOrdering Facility: [facility] Address: [address] [place] [address] Performed By: #### 1 4196-0, 07345-6 ####[facility] LABCLIA [id number] [place] [address] Neutrophils/100 WBC (Bld) 50.6 % Normal [facility] Comment on above: Order Comment: Speci men Type: BLOOD SPECIMENOrdering Facility: [facility] Address: [address] [place] [address] Performed By: #### 1 4196-0, 81701-8 ####[facility] LABCLIA [id number] [place] [address] Nucleated RBC (Bld) [#/Vol] 10*3/uL Normal <0.01 [facility] Comment on above: Order Comment: Speci men Type: BLOOD SPECIMENOrdering Facility: [facility] Address: [address] [place] [address] Performed By: #### 1 4196-0, 77350-2 ####[facility] LABCLIA [id number] [place] [address] Nucleated RBC/100 WBC (Bld) [Ratio] 0.0 /100 WBC Normal [facility] Comment on above: Order Comment: Speci men Type: BLOOD SPECIMENOrdering Facility: [facility] Address: [address] [place] [address] Performed By: #### 1 4196-0, 82915-3 ####[facility] LABCLIA [id number] [place] [address] Platelet mean volume (Bld) [Entitic vol] 9.2 fL Normal 9.0-12.7 [facility] Comment on above: Order Comment: Speci men Type: BLOOD SPECIMENOrdering Facility: [facility] Address: [address] [place] [address] Performed By: #### 1 4196-0, 49610-3 ####[facility] LABCLIA [id number] [place] [address] Platelets (Bld) [#/Vol] 165 10*3/uL Normal 150-400 [facility] Comment on above: Order Comment: Speci men Type: BLOOD SPECIMENOrdering Facility: [facility] Address: [address] [place] [address] Performed By: #### 1 4196-0, 46986-8 ####[facility] LABIA [id number] [place] [address] RBC (Bld) [#/Vol] 3.22 10*6/uL Low 3.90-5.20 [facility] Comment on above: Order Comment: Speci men Type: BLOOD SPECIMENOrdering Facility: [facility] Address: [address] [place] [address] Performed By: #### 1 4196-0, 13751-5 ####[facility] LABIA [id number] [place] [address] WBC (Bld) [#/Vol] 5.72 10*3/uL Normal 3.70-11.00 [facility] Comment on above: Order Comment: Speci men Type: BLOOD SPECIMENOrdering Facility: [facility] Address: [address] [place] [address] Performed By: #### 1 4196-0, 23743-5 ####[facility] LABCLIA [id number] [place] [address] Comprehensive metabolic 2000 panelon 2024 Albumin [Mass/Vol] 3.7 g/dL Low 3.9-4.9 [facility] Comment on above: Order Comment: Speci men Type: BLOOD SPECIMENOrdering Facility: [facility] Address: [address] [place], [place] [id number] Performed By: #### 2 4323-8 ####[facility] LABCLIA [id number] [place] [address] ALP [Catalytic activity/Vol] 81 U/L Normal 34-123 [facility] Comment on above: Order Comment: Speci men Type: BLOOD SPECIMENOrdering Facility: [facility] Address: [address] [place] [address] Performed By: #### 2 4323-8 ####[facility] LABCLIA [id number] [place] [address] ALT [Catalytic activity/Vol] 12 U/L Normal 7-38 [facility] Comment on above: Order Comment: Speci men Type: BLOOD SPECIMENOrdering Facility: [facility] Address: [address] [place] [address] Performed By: #### 2 4323-8 ####[facility] LABCLIA [id number] [place] [address] Anion gap [Moles/Vol] 8 mmol/L Normal 8-15 [facility] Comment on above: Order Comment: Speci men Type: BLOOD SPECIMENOrdering Facility: [facility] Address: [address] [place] [address] Performed By: #### 2 4323-8 ####[facility] LABCLIA [id number] [place] [address] AST [Catalytic activity/Vol] 21 U/L Normal 13-35 [facility] Comment on above: Order Comment: Speci men Type: BLOOD SPECIMENOrdering Facility: [facility] Address: [address] [place] [address] Performed By: #### 2 4323-8 ####[facility] LABCLIA [id number] [place] [address] Bilirubin [Mass/Vol] 0.4 mg/dL Normal 0.2-1.3 [facility] Comment on above: Order Comment: Speci men Type: BLOOD SPECIMENOrdering Facility: [facility] Address: [address] [place] [address] Performed By: #### 2 4323-8 ####[facility] LABCLIA [id number] [place] [address] Calcium [Mass/Vol] 10.0 mg/dL Normal 8.5-10.2 [facility] Comment on above: Order Comment: Speci men Type: BLOOD SPECIMENOrdering Facility: [facility] Address: [address] [place] [address] Performed By: #### 2 4323-8 ####[facility] LABCLIA [id number] [place] [address] Chloride [Moles/Vol] 106 mmol/L Normal 98-107 [facility] Comment on above: Order Comment: Speci men Type: BLOOD SPECIMENOrdering Facility: [facility] Address: [address] [place] [address] Performed By: #### 2 4323-8 ####[facility] LABCLIA [id number] [place] [address] CO2 [Moles/Vol] 23 mmol/L Normal 22-30 [facility] Comment on above: Order Comment: Speci men Type: BLOOD SPECIMENOrdering Facility: [facility] Address: [address] [place] [address] Performed By: #### 2 4323-8 ####[facility] LABCLIA [id number] [place] [address] Creatinine [Mass/Vol] 1.16 mg/dL High 0.58-0.96 [facility] Comment on above: Order Comment: Speci men Type: BLOOD SPECIMENOrdering Facility: [facility] Address: [address] [place], [place] [address] Performed By: #### 2 4323-8 ####[facility] LABCLIA [id number] [place] [address] Creatinine and Glomerular filtration rate.predicted panel (S/P/Bld) 50 mL/min/1.73m??? Low >=60 [facility] Comment on above: Order Comment: Fabricio men Type: BLOOD SPECIMENOrdering Facility: [facility] Address: [address] [place] [address] Result Comment: Miryam mated Glomerular Filtration Rate [...] actual GFR. Performed By: #### 2 4323-8 ####[facility] LABCLIA [id number] [place] [address] Glucose [Mass/Vol] 98 mg/dL Normal 74-99 [facility] Comment on above: Order Comment: Fabricio tapia Type: BLOOD SPECIMENOrdering Facility: [facility] Address: [address] [place], [place] [address] Result Comment: The [place] Diabetes Association (ADA) provides guidance for cutoff [...] Standards of Medical Care in Diabetes 2016, [place] Diabetes Association. Diabetes Care. 2016.39(Suppl 1). Performed By: #### 2 4323-8 ####[facility] LABCLIA [id number] [place] [address] Potassium [Moles/Vol] 4.9 mmol/L Normal 3.7-5.1 [facility] Comment on above: Order Comment: Speci men Type: BLOOD SPECIMENOrdering Facility: [facility] Address: [address] [place] [address] Performed By: #### 2 4323-8 ####[facility] LABCLIA [id number] [place] [address] Protein [Mass/Vol] 7.1 g/dL Normal 6.3-8.0 [facility] Comment on above: Order Comment: Speci men Type: BLOOD SPECIMENOrdering Facility: [facility] Address: [address] [place] [address] Performed By: #### 2 4323-8 ####[facility] LABCLIA [id number] [place] [address] Sodium [Moles/Vol] 137 mmol/L Normal 136-144 [facility] Comment on above: Order Comment: Speci men Type: BLOOD SPECIMENOrdering Facility: [facility] Address: [address] [place] [address] Performed By: #### 2 4323-8 ####[facility] LABCLIA [id number] [place] [address] Urea nitrogen [Mass/Vol] 36 mg/dL High 7-21 [facility] Comment on above: Order Comment: Speci men Type: BLOOD SPECIMENOrdering Facility: [facility] Address: [address] [place] [address] Performed By: #### 2 4323-8 ####[facility] LABCLIA [id number] [place] [address] [facility] 2024 Erythropoietin (EPO) Qn 66.5 mIU/mL High 2.6-18.5 [facility] Comment on above: Order Comment: Speci men Type: BLOOD SPECIMENOrdering Facility: [facility] Address: [address] [place] [address] Performed By: #### 1 5061-5 ####[facility] LABCLIA [id number] [place] [address] [facility] Ferritin [facility]Pl[facility] 2024 Ferritin [Mass/Vol] 105.0 ng/mL Normal 14.7-205.1 [facility] Comment on above: Order Comment: Speci men Type: BLOOD SPECIMENOrdering Facility: [facility] Address: [address] [place] [address] Performed By: #### 5 0190-8, 2132-03, 8, 2275-4 ####[facility] LABCLIA [id number] [place] [address] [place] [facility] Folate [Mass/Vol] 8.1 ng/mL Normal >4.7 [facility] Comment on above: Order Comment: Speci men Type: BLOOD SPECIMENOrdering Facility: [facility] Address: [address] [place] [address] Performed By: #### 5 0190-8, 9, 8, 2275-4 ####[facility] LABCLIA [id number] [place] [address] [place] Iron and Iron binding capaci ty panelon 2024 Iron [Mass/Vol] 71 ug/dL Normal 41-186 [facility] Comment on above: Order Comment: Speci men Type: BLOOD SPECIMENOrdering Facility: [facility] Address: [address] [place] [address] Performed By: #### 5 0190-8, 9, 2283-8, 2275-4 ####[facility] LABCLIA [id number] [place] [address] [place] Iron binding capacity [Mass/Vol] 329 ug/dL Normal 232-386 [facility] Comment on above: Order Comment: Speci men Type: BLOOD SPECIMENOrdering Facility: [facility] Address: [address] [place] [address] Performed By: #### 5 0190-8, 2-9, 2284-8, 2276-4 ####[facility] LABCLIA [id number] [address] [facility] Iron/TIBC [Molar ratio] 21.6 % Normal 15.0-57.0 [facility] Comment on above: Order Comment: Speci men Type: BLOOD SPECIMENOrdering Facility: [facility] Address: [address] [place] [address] Performed By: #### 5 0190-8, 2-9, 4-8, 6-4 ####[facility] LABCLIA [id number] [address] [place] Retics #on 2024 Reticulocytes (Bld) [#/Vol] 0.71753 10*3/uL Normal 0.018-0.100 [facility] Comment on above: Order Comment: Speci men Type: BLOOD SPECIMENOrdering Facility: [facility] Address: [address] [place] [address] Performed By: #### 1 4196-0, 07431-9 ####[facility] LABCLIA [id number] [place] [address] Reticulocytes (Bld) [#/Vol]o n 2024 Reticulocytes/100 RBC (Bld) 1.8 % Normal 0.4-2.0 [facility] Comment on above: Order Comment: Speci men Type: BLOOD SPECIMENOrdering Facility: [facility] Address: [address] [place] [address] Performed By: #### 1 4196-0, 93421-4 ####[facility] LABCLIA [id number] [place] [address] Vit B12 [facility] 025 Cobalamin (Vitamin B12) [Mass/Vol] 820 pg/mL Normal 232-1245 [facility] Comment on above: Order Comment: Speci men Type: BLOOD SPECIMENOrdering Facility: [facility] Address: [address] [place] [address] Performed By: #### 5 0190-8, 2132-9, 2284-8, 2276-4 ####[facility] LABCLIA [id number] [place] [address] [place] CBC W Auto Differential pane l (Bld)on 11-22-2024 Basophils (Bld) [#/Vol] 10*3/uL Normal <0.11 C [facility] Comment on above: Order Comment: Speci men Type: BLOOD SPECIMENOrdering Facility: [facility] Address: [address] [place] [address] Performed By: #### 5 7021-8 ####[facility] LABCLIA [id number] [place] [address] Basophils/100 WBC (Bld) 0.3 % Normal C [facility] Comment on above: Order Comment: Speci men Type: BLOOD SPECIMENOrdering Facility: [facility] Address: [address] [place] [address] Performed By: #### 5 7021-8 ####[facility] LABCLIA [id number] [place] [address] Differential cell count method Nom (Bld) Auto Normal [facility] Comment on above: Order Comment: Speci men Type: BLOOD SPECIMENOrdering Facility: [facility] Address: [address] [place] [address] Performed By: #### 5 7021-8 ####[facility] LABCLIA [id number] [place] [address] Eosinophils (Bld) [#/Vol] 0.06 10*3/uL Normal <0.46 [facility] Comment on above: Order Comment: Speci men Type: BLOOD SPECIMENOrdering Facility: [facility] Address: [address] [place] [address] Performed By: #### 5 7021-8 ####[facility] LABCLIA [id number] [place] [address] Eosinophils/100 WBC (Bld) 1.0 % Normal [facility] Comment on above: Order Comment: Speci men Type: BLOOD SPECIMENOrdering Facility: [facility] Address: [address] [place] [address] Performed By: #### 5 7021-8 ####[facility] LABCLIA [id number] [place] [address] Erythrocyte distribution width (RBC) [Ratio] 14.3 % Normal 11.5-15.0 [facility] Comment on above: Order Comment: Speci men Type: BLOOD SPECIMENOrdering Facility: [facility] Address: [address] [place] [address] Performed By: #### 5 7021-8 ####[facility]ENTER[facility] LABCLIA [id number] [place] [address] Hematocrit (Bld) [Volume fraction] 30.9 % Low 36.0-46.0 [facility] Comment on above: Order Comment: Speci men Type: BLOOD SPECIMENOrdering Facility: [facility] Address: [address] [place] [address] Performed By: #### 5 7021-8 ####[facility] LABCLIA [id number] [place] [address] Hemoglobin (Bld) [Mass/Vol] 9.7 g/dL Low 11.5-15.5 [facility] Comment on above: Order Comment: Speci men Type: BLOOD SPECIMENOrdering Facility: [facility] Address: [address] [place] [address] Performed By: #### 5 7021-8 ####[facility] LABCLIA [id number] [place] [address] Immature granulocytes (Bld) [#/Vol] 10*3/uL Normal <0.10 [facility] Comment on above: Order Comment: Speci men Type: BLOOD SPECIMENOrdering Facility: [facility] Address: [address] [place] [address] Performed By: #### 5 7021-8 ####[facility] LABCLIA [id number] [place] [address] Immature granulocytes/100 WBC (Bld) 0.3 % Normal [facility] Comment on above: Order Comment: Speci men Type: BLOOD SPECIMENOrdering Facility: [facility] Address: [address] [place] [address] Performed By: #### 5 7021-8 ####[facility] LABCLIA [id number] [place] [address] Lymphocytes (Bld) [#/Vol] 2.22 10*3/uL Normal 1.00-4.00 [facility] Comment on above: Order Comment: Speci men Type: BLOOD SPECIMENOrdering Facility: [facility] Address: [address] [place] [address] Performed By: #### 5 7021-8 ####[facility] LABCLIA [id number] [place] [address] Lymphocytes/100 WBC (Bld) 37.9 % Normal [facility] Comment on above: Order Comment: Speci men Type: BLOOD SPECIMENOrdering Facility: [facility] Address: [address] [place] [address] Performed By: #### 5 7021-8 ####[facility] LABCLIA [id number] [place] [address] MCH (RBC) [Entitic mass] 32.0 pg Normal 26.0-34.0 [facility] Comment on above: Order Comment: Speci men Type: BLOOD SPECIMENOrdering Facility: [facility] Address: [address] [place] [address] Performed By: #### 5 7021-8 ####[facility] LABCLIA [id number] [place] [address] MCHC (RBC) [Mass/Vol] 31.4 g/dL Normal 30.5-36.0 [facility] Comment on above: Order Comment: Speci men Type: BLOOD SPECIMENOrdering Facility: [facility] Address: [address] [place] [address] Performed By: #### 5 7021-8 ####[facility] LABCLIA [id number] [place] [address] MCV (RBC) [Entitic vol] 102.0 fL High 80.0-100.0 C [facility] Comment on above: Order Comment: Speci men Type: BLOOD SPECIMENOrdering Facility: [facility] Address: [address] [place] [address] Performed By: #### 5 7021-8 ####[facility] LABCLIA [id number] [place] [address] Monocytes (Bld) [#/Vol] 0.35 10*3/uL Normal <0.87 [facility] Comment on above: Order Comment: Speci men Type: BLOOD SPECIMENOrdering Facility: [facility] Address: [address] [place] [address] Performed By: #### 5 7021-8 ####[facility] LABCLIA [id number] [place] [address] Monocytes/100 WBC (Bld) 6.0 % Normal C [facility] Comment on above: Order Comment: Speci men Type: BLOOD SPECIMENOrdering Facility: [facility] Address: [address] [place] [address] Performed By: #### 5 7021-8 ####[facility] LABCLIA [id number] [place] [address] Neutrophils (Bld) [#/Vol] 3.18 10*3/uL Normal 1.45-7.50 [facility] Comment on above: Order Comment: Speci men Type: BLOOD SPECIMENOrdering Facility: [facility] Address: [address] [place] [address] Performed By: #### 5 7021-8 ####[facility] LABCLIA [id number] [place] [address] Neutrophils/100 WBC (Bld) 54.5 % Normal [facility] Comment on above: Order Comment: Speci men Type: BLOOD SPECIMENOrdering Facility: [facility] Address: [address] [place] [address] Performed By: #### 5 7021-8 ####[facility] LABCLIA [id number] [place] [address] Nucleated RBC (Bld) [#/Vol] 10*3/uL Normal <0.01 [facility] Comment on above: Order Comment: Speci men Type: BLOOD SPECIMENOrdering Facility: [facility] Address: [address] [place] [address] Performed By: #### 5 7021-8 ####[facility] LABCLIA [id number] [place] [address] Nucleated RBC/100 WBC (Bld) [Ratio] 0.0 /100 WBC Normal [facility] Comment on above: Order Comment: Speci men Type: BLOOD SPECIMENOrdering Facility: [facility] Address: [address] [place] [address] Performed By: #### 5 7021-8 ####[facility] LABCLIA [id number] [place] [address] Platelet mean volume (Bld) [Entitic vol] 8.9 fL Low 9.0-12.7 [facility] Comment on above: Order Comment: Speci men Type: BLOOD SPECIMENOrdering Facility: [facility] Address: [address] [place] [address] Performed By: #### 5 7021-8 ####[facility] LABCLIA [id number] [place] [address] Platelets (Bld) [#/Vol] 168 10*3/uL Normal 150-400 [facility] Comment on above: Order Comment: Speci men Type: BLOOD SPECIMENOrdering Facility: [facility] Address: [address] [place] [address] Performed By: #### 5 7021-8 ####[facility] LABCLIA [id number] [place] [address] RBC (Bld) [#/Vol] 3.03 10*6/uL Low 3.90-5.20 [facility] Comment on above: Order Comment: Speci men Type: BLOOD SPECIMENOrdering Facility: [facility] Address: [address] [place] [address] Performed By: #### 5 7021-8 ####[facility] LABIA [id number] [place] [address] WBC (Bld) [#/Vol] 5.85 10*3/uL Normal 3.70-11.00 [facility] Comment on above: Order Comment: Speci men Type: BLOOD SPECIMENOrdering Facility: [facility] Address: [address] [place] [address] Performed By: #### 5 7021-8 ####[facility] LABIA [id number] [place] [address] CNNURSEon 11-22-2024 CNNURSE Normal [facility] CNOVSPon 11-22-2024 CNOVSP Normal [facility] Comprehensive metabolic 2000 panelon 11-22-2024 Albumin [Mass/Vol] 3.8 g/dL Low 3.9-4.9 [facility] Comment on above: Order Comment: Speci men Type: BLOOD SPECIMENOrdering Facility: [facility] Address: [address] [place] [address] Performed By: #### 2 4323-8 ####[facility] LABCLIA [id number] [place] [address] ALP [Catalytic activity/Vol] 83 U/L Normal 34-123 [facility] Comment on above: Order Comment: Speci men Type: BLOOD SPECIMENOrdering Facility: [facility] Address: [address] [place] [address] Performed By: #### 2 4323-8 ####[facility] LABCLIA [id number] [place] [address] ALT [Catalytic activity/Vol] 11 U/L Normal 7-38 [facility] Comment on above: Order Comment: Speci men Type: BLOOD SPECIMENOrdering Facility: [facility] Address: [address] [place] [address] Performed By: #### 2 4323-8 ####[facility] LABCLIA [id number] [place] [address] Anion gap [Moles/Vol] 9 mmol/L Normal 8-15 [facility] Comment on above: Order Comment: Speci men Type: BLOOD SPECIMENOrdering Facility: [facility] Address: [address] [place] [address] Performed By: #### 2 4323-8 ####[facility] LABCLIA [id number] [place] [address] AST [Catalytic activity/Vol] 20 U/L Normal 13-35 [facility] Comment on above: Order Comment: Speci men Type: BLOOD SPECIMENOrdering Facility: [facility] Address: [address] [place] [address] Performed By: #### 2 4323-8 ####[facility] LABCLIA [id number] [place] [address] Bilirubin [Mass/Vol] 0.4 mg/dL Normal 0.2-1.3 [facility] Comment on above: Order Comment: Speci men Type: BLOOD SPECIMENOrdering Facility: [facility] Address: [address] [place] [address] Performed By: #### 2 4323-8 ####[facility] LABCLIA [id number] [place] [address] Calcium [Mass/Vol] 9.4 mg/dL Normal 8.5-10.2 [facility] Comment on above: Order Comment: Speci men Type: BLOOD SPECIMENOrdering Facility: [facility] Address: [address] [place] [address] Performed By: #### 2 4323-8 ####[facility] LABCLIA [id number] [place] [address] Chloride [Moles/Vol] 111 mmol/L High 98-107 [facility] Comment on above: Order Comment: Speci men Type: BLOOD SPECIMENOrdering Facility: [facility] Address: [address] [place] [address] Performed By: #### 2 4323-8 ####[facility] LABCLIA [id number] [place] [address] CO2 [Moles/Vol] 22 mmol/L Normal 22-30 [facility] Comment on above: Order Comment: Speci men Type: BLOOD SPECIMENOrdering Facility: [facility] Address: [address] [place] [address] Performed By: #### 2 4323-8 ####[facility] LABCLIA [id number] [place] [address] Creatinine [Mass/Vol] 1.30 mg/dL High 0.58-0.96 [facility] Comment on above: Order Comment: Speci men Type: BLOOD SPECIMENOrdering Facility: [facility] Address: [address] [place] [address] Performed By: #### 2 4323-8 ####[facility] LABCLIA [id number] [place] [address] Creatinine and Glomerular filtration rate.predicted panel (S/P/Bld) 44 mL/min/1.73m??? Low >=60 [facility] Comment on above: Order Comment: Fabricio tapia Type: BLOOD SPECIMENOrdering Facility: [facility] Address: [address] [place] [address] Result Comment: Miryam mated Glomerular Filtration Rate [...] actual GFR. Performed By: #### 2 4323-8 ####[facility] LABCLIA [id number] [place] [address] Glucose [Mass/Vol] 113 mg/dL High 74-99 [facility] Comment on above: Order Comment: Fabricio tapia Type: BLOOD SPECIMENOrdering Facility: [facility] Address: [address] [place] [address] Result Comment: The [place] [employer] (ADA) provides guidance for cutoff [...] Standards of Medical Care in Diabetes 2016, [place] [employer]. Diabetes Care. 2016.39(Suppl 1). Performed By: #### 2 4323-8 ####[facility] LABCLIA [id number] [place] [address] Potassium [Moles/Vol] 5.1 mmol/L Normal 3.7-5.1 [facility] Comment on above: Order Comment: Fabricio tapia Type: BLOOD SPECIMENOrdering Facility: [facility] Address: [address] [place], [place] [address] Performed By: #### 2 4323-8 ####[facility] LABCLIA [id number] [place] [address] Protein [Mass/Vol] 7.4 g/dL Normal 6.3-8.0 [facility] Comment on above: Order Comment: Speci men Type: BLOOD SPECIMENOrdering Facility: [facility] Address: [address] [place] [address] Performed By: #### 2 4323-8 ####[facility] LABCLIA [id number] [place] [address] Sodium [Moles/Vol] 142 mmol/L Normal 136-144 [facility] Comment on above: Order Comment: Speci men Type: BLOOD SPECIMENOrdering Facility: [facility] Address: [address] [place] [address] Performed By: #### 2 4323-8 ####[facility] LABCLIA [id number] [place] [address] Urea nitrogen [Mass/Vol] 40 mg/dL High 7-21 [facility] Comment on above: Order Comment: Speci men Type: BLOOD SPECIMENOrdering Facility: [facility] Address: [address] [place] [address] Performed By: #### 2 4323-8 ####[facility] LABCLIA [id number] [place] [address] [facility] Ferritin [Mass/Vol] 142.0 ng/mL Normal 14.7-205.1 [facility] Comment on above: Order Comment: Speci men Type: BLOOD SPECIMENOrdering Facility: [facility] Address: [address] [place] [address] Performed By: #### 2 276-4, 56034-0, 2132-9, 2284-8 ####[facility] LABCLIA [id number] [address] [address] [place] Folate SerPl-mCncon 11-23-19 Folate [Mass/Vol] 4.9 ng/mL Normal >4.7 [facility] Comment on above: Order Comment: Speci men Type: BLOOD SPECIMENOrdering Facility: [facility] Address: [address] [place] [address] Performed By: #### 2 276-4, 28902-2, 2132-03, 2284-02 ####[facility] LABIA [id number] [place] [id number] [place] Iron and Iron binding capaci ty panel 11-22-2024 Iron [Mass/Vol] 44 ug/dL Normal 41-186 [facility] Comment on above: Order Comment: Speci men Type: BLOOD SPECIMENOrdering Facility: [facility] Address: [address] [place] [address] Performed By: #### 2 276-4, 61436-9, 2132-03, 2284-02 ####[facility] PREBLE[facility] [id number] [place] [address] [place] Iron binding capacity [Mass/Vol] 362 ug/dL Normal 232-386 [facility] Comment on above: Order Comment: Speci men Type: BLOOD SPECIMENOrdering Facility: [facility] Address: [address] [place] [address] Performed By: #### 2 276-4, 04406-6, 2132-03, 2284-02 ####[facility] LABIA [id number] [address] [address] [place] Iron/TIBC [Molar ratio] 12.2 % Low 15.0-57.0 C [facility] Comment on above: Order Comment: Speci men Type: BLOOD SPECIMENOrdering Facility: [facility] Address: [address] [place] [address] Performed By: #### 2 276-4, 92797-8, 2132-03, 2284-02 ####[facility] LABCLIA [id number] [address] [address] [place] Vit B12 [facility] 05-16-2 025 Cobalamin (Vitamin B12) [Mass/Vol] 591 pg/mL Normal 232-1245 [facility] Comment on above: Order Comment: Speci men Type: BLOOD SPECIMENOrdering Facility: [facility] Address: [address] [place] [address] Performed By: #### 2 276-4, 57335-4, 9, 2284-02 ####[facility] LABCLIA [id number] [place] [address] [place] CBC W Auto Differential pane l (Bld)on 10-11-2024 Basophils (Bld) [#/Vol] 10*3/uL Normal <0.11 C [facility] Comment on above: Order Comment: Speci men Type: BLOOD SPECIMENOrdering Facility: [facility] Address: [address] [place] [address] Performed By: #### 5 7021-8 ####[facility] LABCLIA [id number] [place] [address] Basophils/100 WBC (Bld) 0.4 % Normal C [facility] Comment on above: Order Comment: Speci men Type: BLOOD SPECIMENOrdering Facility: [facility] Address: [address] [place] [address] Performed By: #### 5 7021-8 ####[facility] LABCLIA [id number] [place] [address] Differential cell count method Nom (Bld) Auto Normal [facility] Comment on above: Order Comment: Speci men Type: BLOOD SPECIMENOrdering Facility: [facility] Address: [address] [place] [address] Performed By: #### 5 7021-8 ####[facility] LABCLIA [id number] [place] [address] Eosinophils (Bld) [#/Vol] 0.04 10*3/uL Normal <0.46 [facility] Comment on above: Order Comment: Speci men Type: BLOOD SPECIMENOrdering Facility: [facility] Address: [address] [place] [address] Performed By: #### 5 7021-8 ####[facility] LABCLIA [id number] [place] [address] Eosinophils/100 WBC (Bld) 0.7 % Normal [facility] Comment on above: Order Comment: Speci men Type: BLOOD SPECIMENOrdering Facility: [facility] Address: [address] [place] [address] Performed By: #### 5 7021-8 ####[facility] LABCLIA [id number] [place] [address] Erythrocyte distribution width (RBC) [Ratio] 14.3 % Normal 11.5-15.0 [facility] Comment on above: Order Comment: Speci men Type: BLOOD SPECIMENOrdering Facility: [facility] Address: [address] [place] [address] Performed By: #### 5 7021-8 ####[facility] LABCLIA [id number] [place] [address] Hematocrit (Bld) [Volume fraction] 35.0 % Low 36.0-46.0 [facility] Comment on above: Order Comment: Speci men Type: BLOOD SPECIMENOrdering Facility: [facility] Address: [address] [place] [address] Performed By: #### 5 7021-8 ####[facility] LABCLIA [id number] [place] [address] Hemoglobin (Bld) [Mass/Vol] 11.1 g/dL Low 11.5-15.5 [facility] Comment on above: Order Comment: Speci men Type: BLOOD SPECIMENOrdering Facility: [facility] Address: [address] [place] [address] Performed By: #### 5 7021-8 ####[facility] LABCLIA [id number] [place] [address] Immature granulocytes (Bld) [#/Vol] 10*3/uL Normal <0.10 [facility] Comment on above: Order Comment: Speci men Type: BLOOD SPECIMENOrdering Facility: [facility] Address: [address] [place] [address] Performed By: #### 5 7021-8 ####[facility] LABCLIA [id number] [place] [address] Immature granulocytes/100 WBC (Bld) 0.2 % Normal [facility] Comment on above: Order Comment: Speci men Type: BLOOD SPECIMENOrdering Facility: [facility] Address: [address] [place] [address] Performed By: #### 5 7021-8 ####[facility] LABCLIA [id number] [place] [address] Lymphocytes (Bld) [#/Vol] 1.92 10*3/uL Normal 1.00-4.00 [facility] Comment on above: Order Comment: Speci men Type: BLOOD SPECIMENOrdering Facility: [facility] Address: [address] [place] [address] Performed By: #### 5 7021-8 ####[facility] LABCLIA [id number] [place] [address] Lymphocytes/100 WBC (Bld) 36.0 % Normal [facility] Comment on above: Order Comment: Speci men Type: BLOOD SPECIMENOrdering Facility: [facility] Address: [address] [place] [address] Performed By: #### 5 7021-8 ####[facility] LABCLIA [id number] [place] [address] MCH (RBC) [Entitic mass] 31.6 pg Normal 26.0-34.0 [facility] Comment on above: Order Comment: Speci men Type: BLOOD SPECIMENOrdering Facility: [facility] Address: [address] [place] [address] Performed By: #### 5 7021-8 ####[facility] LABCLIA [id number] [place] [address] MCHC (RBC) [Mass/Vol] 31.7 g/dL Normal 30.5-36.0 [facility] Comment on above: Order Comment: Speci men Type: BLOOD SPECIMENOrdering Facility: [facility] Address: [address] [place] [address] Performed By: #### 5 7021-8 ####[facility] LABCLIA [id number] [place] [address] MCV (RBC) [Entitic vol] 99.7 fL Normal 80.0-100.0 C [facility] Comment on above: Order Comment: Speci men Type: BLOOD SPECIMENOrdering Facility: [facility] Address: [address] [place] [address] Performed By: #### 5 7021-8 ####[facility] LABCLIA [id number] [place] [address] Monocytes (Bld) [#/Vol] 0.20 10*3/uL Normal <0.87 [facility] Comment on above: Order Comment: Speci men Type: BLOOD SPECIMENOrdering Facility: [facility] Address: [address] [place] [address] Performed By: #### 5 7021-8 ####[facility] LABCLIA [id number] [place] [address] Monocytes/100 WBC (Bld) 3.7 % Normal C [facility] Comment on above: Order Comment: Speci men Type: BLOOD SPECIMENOrdering Facility: [facility] Address: [address] [place] [address] Performed By: #### 5 7021-8 ####[facility] LABCLIA [id number] [place] [address] Neutrophils (Bld) [#/Vol] 3.15 10*3/uL Normal 1.45-7.50 [facility] Comment on above: Order Comment: Speci men Type: BLOOD SPECIMENOrdering Facility: [facility] Address: [address] [place] [address] Performed By: #### 5 7021-8 ####[facility] LABCLIA [id number] [place] [address] Neutrophils/100 WBC (Bld) 59.0 % Normal [facility] Comment on above: Order Comment: Speci men Type: BLOOD SPECIMENOrdering Facility: [facility] Address: [address] [place] [address] Performed By: #### 5 7021-8 ####[facility] LABIA [id number] [place] [address] Nucleated RBC (Bld) [#/Vol] 10*3/uL Normal <0.01 [facility] Comment on above: Order Comment: Speci men Type: BLOOD SPECIMENOrdering Facility: [facility] Address: [address] [place] [address] Performed By: #### 5 7021-8 ####[facility] LABCLIA [id number] [place] [address] Nucleated RBC/100 WBC (Bld) [Ratio] 0.0 /100 WBC Normal [facility] Comment on above: Order Comment: Speci men Type: BLOOD SPECIMENOrdering Facility: [facility] Address: [address] [place] [address] Performed By: #### 5 7021-8 ####[facility] LABIA [id number] [place] [address] Platelet mean volume (Bld) [Entitic vol] 9.0 fL Normal 9.0-12.7 [facility] Comment on above: Order Comment: Speci men Type: BLOOD SPECIMENOrdering Facility: [facility] Address: [address] [place] [address] Performed By: #### 5 7021-8 ####[facility] LABCLIA [id number] [place] [address] Platelets (Bld) [#/Vol] 202 10*3/uL Normal 150-400 [facility] Comment on above: Order Comment: Speci men Type: BLOOD SPECIMENOrdering Facility: [facility] Address: [address] [place] [address] Performed By: #### 5 7021-8 ####[facility] LABIA [id number] [place] [address] RBC (Bld) [#/Vol] 3.51 10*6/uL Low 3.90-5.20 [facility] Comment on above: Order Comment: Speci men Type: BLOOD SPECIMENOrdering Facility: [facility] Address: [address] [place] [address] Performed By: #### 5 7021-8 ####[facility] LABIA [id number] [place] [address] WBC (Bld) [#/Vol] 5.34 10*3/uL Normal 3.70-11.00 [facility] Comment on above: Order Comment: Speci men Type: BLOOD SPECIMENOrdering Facility: [facility] Address: [address] [place] [address] Performed By: #### 5 7021-8 ####[facility] LABIA [id number] [place] [address] CNNURSEon 10-11-2024 CNNURSE Normal [facility] CNOVSPon 10-11-2024 CNOVSP Normal [facility] Comprehensive metabolic 2000 panelon 10-11-2024 Albumin [Mass/Vol] 3.9 g/dL Normal 3.9-4.9 [facility] Comment on above: Order Comment: Speci men Type: BLOOD SPECIMENOrdering Facility: [facility] Address: [address] [place] [id number] Performed By: #### 2 4323-8 ####[facility] LABCLIA [id number] [place] [address] ALP [Catalytic activity/Vol] 86 U/L Normal 34-123 [facility] Comment on above: Order Comment: Speci men Type: BLOOD SPECIMENOrdering Facility: [facility] Address: [address] [place] [address] Performed By: #### 2 4323-8 ####[facility] LABCLIA [id number] [place] [address] ALT [Catalytic activity/Vol] 14 U/L Normal 7-38 [facility] Comment on above: Order Comment: Speci men Type: BLOOD SPECIMENOrdering Facility: [facility] Address: [address] [place] [address] Performed By: #### 2 4323-8 ####[facility] LABCLIA [id number] [place] [address] Anion gap [Moles/Vol] 9 mmol/L Normal 8-15 [facility] Comment on above: Order Comment: Speci men Type: BLOOD SPECIMENOrdering Facility: [facility] Address: [address] [place] [address] Performed By: #### 2 4323-8 ####[facility] LABCLIA [id number] [place] [address] AST [Catalytic activity/Vol] 24 U/L Normal 13-35 [facility] Comment on above: Order Comment: Speci men Type: BLOOD SPECIMENOrdering Facility: [facility] Address: [address] [place] [address] Performed By: #### 2 4323-8 ####[facility] LABCLIA [id number] [place] [address] Bilirubin [Mass/Vol] 0.5 mg/dL Normal 0.2-1.3 [facility] Comment on above: Order Comment: Speci men Type: BLOOD SPECIMENOrdering Facility: [facility] Address: [address] [place] [place] [id number] Performed By: #### 2 4323-8 ####[facility] LABCLIA [id number] [place] [address] Calcium [Mass/Vol] 9.7 mg/dL Normal 8.5-10.2 [facility] Comment on above: Order Comment: Speci men Type: BLOOD SPECIMENOrdering Facility: [facility] Address: [address] [place] [address] Performed By: #### 2 4323-8 ####[facility] LABCLIA [id number] [place] [address] Chloride [Moles/Vol] 106 mmol/L Normal 98-107 [facility] Comment on above: Order Comment: Speci men Type: BLOOD SPECIMENOrdering Facility: [facility] Address: [address] [place] [address] Performed By: #### 2 4323-8 ####[facility] LABCLIA [id number] [place] [address] CO2 [Moles/Vol] 23 mmol/L Normal 22-30 [facility] Comment on above: Order Comment: Speci men Type: BLOOD SPECIMENOrdering Facility: [facility] Address: [address] [place] [address] Performed By: #### 2 4323-8 ####[facility] LABCLIA [id number] [place] [address] Creatinine [Mass/Vol] 1.27 mg/dL High 0.58-0.96 [facility] Comment on above: Order Comment: Speci men Type: BLOOD SPECIMENOrdering Facility: [facility] Address: [address] [place] [address] Performed By: #### 2 4323-8 ####[facility] LABCLIA [id number] [place] [address] Creatinine and Glomerular filtration rate.predicted panel (S/P/Bld) 45 mL/min/1.73m??? Low >=60 [facility] Comment on above: Order Comment: Fabricio tapia Type: BLOOD SPECIMENOrdering Facility: [facility] Address: [address] [place] [address] Result Comment: Miryam mated Glomerular Filtration Rate [...] actual GFR. Performed By: #### 2 4323-8 ####[facility] LABCLIA [id number] [place] [address] Glucose [Mass/Vol] 107 mg/dL High 74-99 [facility] Comment on above: Order Comment: Fabricio tapia Type: BLOOD SPECIMENOrdering Facility: [facility] Address: [address] [place] [address] Result Comment: The [place] Diabetes Association (ADA) provides guidance for cutoff [...] Standards of Medical Care in Diabetes 2016, [place] [employer]. Diabetes Care. 2016.39(Suppl 1). Performed By: #### 2 4323-8 ####[facility] LABCLIA [id number] [place] [address] Potassium [Moles/Vol] 5.0 mmol/L Normal 3.7-5.1 [facility] Comment on above: Order Comment: Speci men Type: BLOOD SPECIMENOrdering Facility: [facility] Address: [address] [place] [address] Performed By: #### 2 4323-8 ####[facility] LABCLIA [id number] [place] [address] Protein [Mass/Vol] 7.7 g/dL Normal 6.3-8.0 [facility] Comment on above: Order Comment: Speci men Type: BLOOD SPECIMENOrdering Facility: [facility] Address: [address] [place] [address] Performed By: #### 2 4323-8 ####[facility] LABCLIA [id number] [place] [address] Sodium [Moles/Vol] 138 mmol/L Normal 136-144 [facility] Comment on above: Order Comment: Speci men Type: BLOOD SPECIMENOrdering Facility: [facility] Address: [address] [place] [address] Performed By: #### 2 4323-8 ####[facility] LABCLIA [id number] [place] [address] Urea nitrogen [Mass/Vol] 31 mg/dL High 7-21 [facility] Comment on above: Order Comment: Speci men Type: BLOOD SPECIMENOrdering Facility: [facility] Address: [address] [place] [address] Performed By: #### 2 4323-8 ####[facility] LABCLIA [id number] [place] [address] Ferritin SerPl-ncon 2024 Ferritin [Mass/Vol] 122.0 ng/mL Normal 14.7-205.1 [facility] Comment on above: Order Comment: Speci men Type: BLOOD SPECIMENOrdering Facility: [facility] Address: [address] [place] [address] Performed By: #### 5 0190-8, 2132-9, 2276-4, 8 ####[facility] LABCLIA [id number] [address] [address] [place] Folate SerPl-mCncon 10-12-19 Folate [Mass/Vol] 6.6 ng/mL Normal >4.7 [facility] Comment on above: Order Comment: Speci men Type: BLOOD SPECIMENOrdering Facility: [facility] Address: [address] [place] [address] Performed By: #### 5 0190-8, 9, 2275-4, 8 ####[facility] LABCLIA [id number] [place] [id number] [place] Iron and Iron binding capaci ty panelon 10-11-2024 Iron [Mass/Vol] 70 ug/dL Normal 41-186 [facility] Comment on above: Order Comment: Speci men Type: BLOOD SPECIMENOrdering Facility: [facility] Address: [address] [place] [address] Performed By: #### 5 0190-8, 9, 4, 8 ####[facility] LABIA [id number] [place] [id number] [place] Iron binding capacity [Mass/Vol] 351 ug/dL Normal 232-386 [facility] Comment on above: Order Comment: Speci men Type: BLOOD SPECIMENOrdering Facility: [facility] Address: [address] [place] [address] Performed By: #### 5 0190-8, 9, 4, 8 ####[facility] LABIA [id number] [place] [id number] [place] Iron/TIBC [Molar ratio] 19.9 % Normal 15.0-57.0 C [facility] Comment on above: Order Comment: Speci men Type: BLOOD SPECIMENOrdering Facility: [facility] Address: [address] [place] [address] Performed By: #### 5 0190-8, 2131-9, 6-4, 8 ####[facility] LABCLIA [id number] [address] [address] [place] Vit B12 SerPl-mCncon 025 Cobalamin (Vitamin B12) [Mass/Vol] 647 pg/mL Normal 232-1245 [facility] Comment on above: Order Comment: Speci men Type: BLOOD SPECIMENOrdering Facility: [facility] Address: [address] [place], [place] [address] Performed By: #### 5 0190-8, 9, 4, 2284-02 ####[facility] LABCLIA [id number] [place] [id number] [place] [address] Ultrasound Report Signed Patient: ANDREI FISH MR#: [id number] : 1950 Acct:[id number] Age/Sex: 73 / F ADM Date: 09/17/24 Loc: US Attending Dr: Mar Mayo M.D. Ordering Physician: Mar Mayo M.D. Date of Service: 09/17/24 Procedure(s): US thyroid Accession Number(s): [id number] cc: Stephanie Dumont [employer]IC[employer]CTOR EQUIPMENT TECHNICIAN; Mar Mayo M.D. [place] [id number] Patient Name: ANDREI FISH MRN: [id number] date: 1950 Sex: F Assigned Patient Location: [place] Current Patient Location: [place] Accession/Order Number: [id number] Exam Date: 09/17/2024 18:55 Report Date: 09/17/2024 [...] Valentin Peralta M.D.09/17/2024 7:07 PM Dictation Location: [place] [address] Electronically authenticated by: [id number] Y Date: 09/17/2024 19:07 Dictated By: Valentin Peralta D.O. Signed By: 09/17/241909 DD/ 06 TD/TT: Gold Charmer: [facility] Radiology, Radiologist, MD - 09/17/2024 [place] [address] Ultrasound Report Signed Patient: ANDREI FISH MR#: [id number] : 1950 Acct:[id number] Age/Sex: 73 / F ADM Date: 09/17/24 Loc: US Attending Dr: Mar Mayo M.D. Ordering Physician: Mar Mayo M.D. Date of Service: 09/17/24 Procedure(s): US thyroid Accession Number(s): [id number] cc: Stephanie Dumont SEMICONDUCTOR EQUIPMENT TECHNICIAN; Mar Mayo M.D. The [address] [address] Patient Name: ANDREI FISH MRN: [facility]:[id number] date: 1950 Sex: F Assigned Patient Location: [place] Current Patient Location: [place] Accession/Order Number: [id number] Exam Date: 09/17/2024 18:55 Report Date: 09/17/2024 [...] Valentin Peralta M.D.09/17/2024 7:07 PM Dictation Location: [place] [employer] Electronically authenticated by: [id number] Y Date: 09/17/2024 19:07 Dictated By: Valentin Peralta D.O. Signed By: 09/17/241909 DD/ 06 TD/TT: Gold Charmer: [facility] Radiology Study observation (narrative) [facility] [place] Thyroid glandOrdered By: Radiologist Radiology on 09-17-[address] [facility] Work Phone: CBC W Auto Differential pane l (Bld)on 08-30-2024 Basophils (Bld) [#/Vol] 10*3/uL Normal <0.11 C [facility] Comment on above: Order Comment: Speci men Type: BLOOD SPECIMENOrdering Facility: [facility] Address: [address] [place] [address] Performed By: #### 5 7021-8 ####[facility] LABCLIA [id number] [place] [address] Basophils/100 WBC (Bld) 0.4 % Normal C [facility] Comment on above: Order Comment: Speci men Type: BLOOD SPECIMENOrdering Facility: [facility] Address: [address] [place] [address] Performed By: #### 5 7021-8 ####[facility] LABCLIA [id number] [place] [address] Differential cell count method Nom (Bld) Auto Normal [facility] Comment on above: Order Comment: Speci men Type: BLOOD SPECIMENOrdering Facility: [facility] Address: [address] [place] [address] Performed By: #### 5 7021-8 ####[facility] LABCLIA [id number] [place] [address] Eosinophils (Bld) [#/Vol] 0.04 10*3/uL Normal <0.46 [facility] Comment on above: Order Comment: Speci men Type: BLOOD SPECIMENOrdering Facility: [facility] Address: [address] [place] [address] Performed By: #### 5 7021-8 ####[facility] LABCLIA [id number] [place] [address] Eosinophils/100 WBC (Bld) 0.7 % Normal [facility] Comment on above: Order Comment: Speci men Type: BLOOD SPECIMENOrdering Facility: [facility] Address: [address] [place] [address] Performed By: #### 5 7021-8 ####[facility] LABCLIA [id number] [place] [address] Erythrocyte distribution width (RBC) [Ratio] 13.8 % Normal 11.5-15.0 [facility] Comment on above: Order Comment: Speci men Type: BLOOD SPECIMENOrdering Facility: [facility] Address: [address] [place] [address] Performed By: #### 5 7021-8 ####[facility] LABCLIA [id number] [place] [address] Hematocrit (Bld) [Volume fraction] 33.2 % Low 36.0-46.0 [facility] Comment on above: Order Comment: Speci men Type: BLOOD SPECIMENOrdering Facility: [facility] Address: [address] [place] [address] Performed By: #### 5 7021-8 ####[facility] LABCLIA [id number] [place] [address] Hemoglobin (Bld) [Mass/Vol] 10.4 g/dL Low 11.5-15.5 [facility] Comment on above: Order Comment: Speci men Type: BLOOD SPECIMENOrdering Facility: [facility] Address: [address] [place] [address] Performed By: #### 5 7021-8 ####[facility] LABCLIA [id number] [place] [address] Immature granulocytes (Bld) [#/Vol] 10*3/uL Normal <0.10 [facility] Comment on above: Order Comment: Speci men Type: BLOOD SPECIMENOrdering Facility: [facility] Address: [address] [place] [address] Performed By: #### 5 7021-8 ####[facility] LABCLIA [id number] [place] [address] Immature granulocytes/100 WBC (Bld) 0.4 % Normal [facility] Comment on above: Order Comment: Speci men Type: BLOOD SPECIMENOrdering Facility: [facility] Address: [address] [place] [address] Performed By: #### 5 7021-8 ####[facility] LABCLIA [id number] [place] [address] Lymphocytes (Bld) [#/Vol] 2.05 10*3/uL Normal 1.00-4.00 [facility] Comment on above: Order Comment: Speci men Type: BLOOD SPECIMENOrdering Facility: [facility] Address: [address] [place] [address] Performed By: #### 5 7021-8 ####[facility] LABCLIA [id number] [place] [address] Lymphocytes/100 WBC (Bld) 36.7 % Normal [facility] Comment on above: Order Comment: Speci men Type: BLOOD SPECIMENOrdering Facility: [facility] Address: [address] [place] [address] Performed By: #### 5 7021-8 ####[facility] LABCLIA [id number] [place] [address] MCH (RBC) [Entitic mass] 31.6 pg Normal 26.0-34.0 [facility] Comment on above: Order Comment: Speci men Type: BLOOD SPECIMENOrdering Facility: [facility] Address: [address] [place] [address] Performed By: #### 5 7021-8 ####[facility] LABCLIA [id number] [place] [address] MCHC (RBC) [Mass/Vol] 31.3 g/dL Normal 30.5-36.0 [facility] Comment on above: Order Comment: Speci men Type: BLOOD SPECIMENOrdering Facility: [facility] Address: [address] [place] [address] Performed By: #### 5 7021-8 ####[facility] LABCLIA [id number] [place] [address] MCV (RBC) [Entitic vol] 100.9 fL High 80.0-100.0 C [facility] Comment on above: Order Comment: Speci men Type: BLOOD SPECIMENOrdering Facility: [facility] Address: [address] [place] [address] Performed By: #### 5 7021-8 ####[facility] LABIA [id number] [place] [address] Monocytes (Bld) [#/Vol] 0.26 10*3/uL Normal <0.87 [facility] Comment on above: Order Comment: Speci men Type: BLOOD SPECIMENOrdering Facility: [facility] Address: [address] [place] [address] Performed By: #### 5 7021-8 ####[facility] LABCLIA [id number] [place] [address] Monocytes/100 WBC (Bld) 4.7 % Normal [facility] Comment on above: Order Comment: Speci men Type: BLOOD SPECIMENOrdering Facility: [facility] Address: [address] [place] [address] Performed By: #### 5 7021-8 ####[facility] LABCLIA [id number] [place] [address] Neutrophils (Bld) [#/Vol] 3.20 10*3/uL Normal 1.45-7.50 [facility] Comment on above: Order Comment: Speci men Type: BLOOD SPECIMENOrdering Facility: [facility] Address: [address] [place] [address] Performed By: #### 5 7021-8 ####[facility] LABCLIA [id number] [place] [address] Neutrophils/100 WBC (Bld) 57.1 % Normal [facility] Comment on above: Order Comment: Speci men Type: BLOOD SPECIMENOrdering Facility: [facility] Address: [address] [place] [address] Performed By: #### 5 7021-8 ####[facility] LABCLIA [id number] [place] [address] Nucleated RBC (Bld) [#/Vol] 10*3/uL Normal <0.01 [facility] Comment on above: Order Comment: Speci men Type: BLOOD SPECIMENOrdering Facility: [facility] Address: [address] [place] [address] Performed By: #### 5 7021-8 ####[facility] LABCLIA [id number] [place] [address] Nucleated RBC/100 WBC (Bld) [Ratio] 0.0 /100 WBC Normal [facility] Comment on above: Order Comment: Speci men Type: BLOOD SPECIMENOrdering Facility: [facility] Address: [address] [place] [address] Performed By: #### 5 7021-8 ####[facility] LABCLIA [id number] [place] [address] Platelet mean volume (Bld) [Entitic vol] 9.3 fL Normal 9.0-12.7 [facility] Comment on above: Order Comment: Speci men Type: BLOOD SPECIMENOrdering Facility: [facility] Address: [address] [place] [address] Performed By: #### 5 7021-8 ####[facility] LABCLIA [id number] [place] [address] Platelets (Bld) [#/Vol] 173 10*3/uL Normal 150-400 [facility] Comment on above: Order Comment: Speci men Type: BLOOD SPECIMENOrdering Facility: [facility] Address: [address] [place] [address] Performed By: #### 5 7021-8 ####[facility] LABCLIA [id number] [place] [address] RBC (Bld) [#/Vol] 3.29 10*6/uL Low 3.90-5.20 [facility] Comment on above: Order Comment: Speci men Type: BLOOD SPECIMENOrdering Facility: [facility] Address: [address] [place] [address] Performed By: #### 5 7021-8 ####[facility] LABIA [id number] [place] [address] WBC (Bld) [#/Vol] 5.59 10*3/uL Normal 3.70-11.00 [facility] Comment on above: Order Comment: Speci men Type: BLOOD SPECIMENOrdering Facility: [facility] Address: [address] [place] [address] Performed By: #### 5 7021-8 ####[facility] LABCLIA [id number] [place] [address] CNNURSEon 08-30-2024 CNNURSE Normal [facility] CNOVSPon 08-30-2024 CNOVSP Normal [facility] Comprehensive metabolic 2000 panelon 08-30-2024 Albumin [Mass/Vol] 3.8 g/dL Low 3.9-4.9 [facility] Comment on above: Order Comment: Speci men Type: BLOOD SPECIMENOrdering Facility: [facility] Address: [address] [place] [address] Result Comment: Flip ected result: Previously reported as 3.7 g/dL on 08/30/2024 at 10:57 AM EST. Performed By: #### 2 4323-8 ####[facility] LABCLIA [id number] [place] [address] [place] ALP [Catalytic activity/Vol] 84 U/L Normal 34-123 [facility] Comment on above: Order Comment: Speci men Type: BLOOD SPECIMENOrdering Facility: [facility] Address: [address] [place] [address] Result Comment: Flip ected result: Previously reported as 80 U/L on 08/30/2024 at 10:57 AM EST. Performed By: #### 2 4323-8 ####[facility] LABCLIA [id number] [place] [address] [place] ALT [Catalytic activity/Vol] 15 U/L Normal 7-38 [facility] Comment on above: Order Comment: Speci men Type: BLOOD SPECIMENOrdering Facility: [facility] Address: [address] [place] [address] Result Comment: Flip ected result: Previously reported as 11 U/L on 08/30/2024 at 10:57 AM EST. Performed By: #### 2 4323-8 ####[facility] LABCLIA [id number] [place] [address] [place] Anion gap [Moles/Vol] 9 mmol/L Normal 8-15 [facility] Comment on above: Order Comment: Speci men Type: BLOOD SPECIMENOrdering Facility: [facility] Address: [address] [place] [address] Performed By: #### 2 4323-8 ####[facility] LABIA [id number] [place] [address] [place] AST [Catalytic activity/Vol] 24 U/L Normal 13-35 [facility] Comment on above: Order Comment: Speci men Type: BLOOD SPECIMENOrdering Facility: [facility] Address: [address] [place] [address] Result Comment: Flip ected result: Previously reported as 18 U/L on 08/30/2024 at 10:57 AM EST. Performed By: #### 2 4323-8 ####[facility] LABIA [id number] [place] [address] [place] Bilirubin [Mass/Vol] 0.5 mg/dL Normal 0.2-1.3 [facility] Comment on above: Order Comment: Speci men Type: BLOOD SPECIMENOrdering Facility: [facility] Address: [address] [place] [address] Result Comment: Flip ected result: Previously reported as 0.4 mg/dL on 08/30/2024 at 10:57 AM EST. Performed By: #### 2 4323-8 ####[facility] [id number] [place] [address] [place] Calcium [Mass/Vol] 9.4 mg/dL Normal 8.5-10.2 [facility] Comment on above: Order Comment: Speci men Type: BLOOD SPECIMENOrdering Facility: [facility] Address: [address] [place] [address] Result Comment: Flip ected result: Previously reported as 9.1 mg/dL on 08/30/2024 at 10:57 AM EST. Performed By: #### 2 4323-8 ####[facility] LABCLIA [id number] [place] [address] [place] Chloride [Moles/Vol] 105 mmol/L Normal 98-107 [facility] Comment on above: Order Comment: Speci men Type: BLOOD SPECIMENOrdering Facility: [facility] Address: [address] [place] [address] Performed By: #### 2 4323-8 ####[facility] LABIA [id number] [place] [address] [place] CO2 [Moles/Vol] 25 mmol/L Normal 22-30 [facility] Comment on above: Order Comment: Speci men Type: BLOOD SPECIMENOrdering Facility: [facility] Address: [address] [place] [address] Result Comment: Flip ected result: Previously reported as 27 mmol/L on 08/30/2024 at 10:57 AM EST. Performed By: #### 2 4323-8 ####[facility] LABIA [id number] [place] [address] [place] Creatinine [Mass/Vol] 1.38 mg/dL High 0.58-0.96 [facility] Comment on above: Order Comment: Speci men Type: BLOOD SPECIMENOrdering Facility: [facility] Address: [address] [place] [address] Result Comment: Flip ected result: Previously reported as 1.31 mg/dL on 08/30/2024 at 10:57 AM EST. Performed By: #### 2 4323-8 ####[facility] LABIA [id number] [place] [address] [place] Creatinine and Glomerular filtration rate.predicted panel (S/P/Bld) 40 mL/min/1.73m??? Low >=60 [facility] Comment on above: Order Comment: Speci men Type: BLOOD SPECIMENOrdering Facility: [facility] Address: [address] [place] [address] Result Comment: Miryam mated Glomerular Filtration Rate [...] AM EST. Performed By: #### 2 4323-8 ####[facility] LABIA [id number] [place] [address] [place] Glucose [Mass/Vol] 102 mg/dL High 74-99 [facility] Comment on above: Order Comment: Fabricio tapia Type: BLOOD SPECIMENOrdering Facility: [facility] Address: [address] [place] [address] Result Comment: The [place] Diabetes [employer] (ADA) provides guidance for cutoff [...] Standards of Medical Care in Diabetes 2016, [employer]. Diabetes Care. 2016.39(Suppl 1). Performed By: #### 2 4323-8 ####[facility] LABIA [id number] [place] [id number] [place] Potassium [Moles/Vol] 4.9 mmol/L Normal 3.7-5.1 [facility] Comment on above: Order Comment: Fabricio tapia Type: BLOOD SPECIMENOrdering Facility: [facility] Address: [address] [place] [address] Performed By: #### 2 4323-8 ####[facility] LABCLIA [id number] [place] [address] [place] Protein [Mass/Vol] 7.5 g/dL Normal 6.3-8.0 [facility] Comment on above: Order Comment: Speci men Type: BLOOD SPECIMENOrdering Facility: [facility] Address: [address] [place] [address] Result Comment: Flip ected result: Previously reported as 7.3 g/dL on 08/30/2024 at 10:57 AM EST. Performed By: #### 2 4323-8 ####[facility] LABCLIA [id number] [place] [address] [place] Sodium [Moles/Vol] 139 mmol/L Normal 136-144 [facility] Comment on above: Order Comment: Speci men Type: BLOOD SPECIMENOrdering Facility: [facility] Address: [address] [place] [address] Performed By: #### 2 4323-8 ####[facility] LABIA [id number] [place] [address] [place] Urea nitrogen [Mass/Vol] 29 mg/dL High - [facility] Comment on above: Order Comment: Speci men Type: BLOOD SPECIMENOrdering Facility: [facility] Address: [address] [place] [address] Result Comment: Flip ected result: Previously reported as 30 mg/dL on 08/30/2024 at 10:57 AM EST. Performed By: #### 2 4323-8 ####[facility] LABCLIA [id number] [place] [address] [place] Ferritin SerPl-mCncon 2024 Ferritin [Mass/Vol] 115.0 ng/mL Normal 14.7-205.1 [facility] Comment on above: Order Comment: Speci men Type: BLOOD SPECIMENOrdering Facility: [facility] Address: [address] [place] [address] Performed By: #### 2 132-9, 2276-4, 2284-8, 17986-6 ####[facility] LABCLIA [id number] [place] [id number] [place] Folate SerPl-ncon 08-30-19 25 Folate [Mass/Vol] 6.1 ng/mL Normal >4.7 [facility] Comment on above: Order Comment: Speci men Type: BLOOD SPECIMENOrdering Facility: [facility] Address: [address] [place] [address] Performed By: #### 2 132-9, 2276-4, 2284-8, 41844-5 ####[facility] LABCLIA [id number] [place] [address] [place] Iron and Iron binding capaci ty panelon 08-30-2024 Iron [Mass/Vol] 55 ug/dL Normal 41-186 [facility] Comment on above: Order Comment: Speci men Type: BLOOD SPECIMENOrdering Facility: [facility] Address: [address] [place] [address] Performed By: #### 2 132-9, 2276-4, 2284-8, 66781-2 ####[facility] LABCLIA [id number] [place] [id number] [place] Iron binding capacity [Mass/Vol] 307 ug/dL Normal 232-386 [facility] Comment on above: Order Comment: Speci men Type: BLOOD SPECIMENOrdering Facility: [facility] Address: [address] [place] [address] Performed By: #### 2 132-9, 2276-4, 2284-8, 65408-2 ####[facility] LABCLIA [id number] [place] [address] [place] Iron/TIBC [Molar ratio] 17.9 % Normal 15.0-57.0 C [facility] Comment on above: Order Comment: Speci men Type: BLOOD SPECIMENOrdering Facility: [facility] Address: [address] [place], [place] [address] Performed By: #### 2 132-9, 2276-4, 2284-8, 12455-7 ####[facility] LABCLIA [id number] [place] [id number] [place] Vit B12 SerPl-ncon 025 Cobalamin (Vitamin B12) [Mass/Vol] 680 pg/mL Normal 232-1245 [facility] Comment on above: Order Comment: Speci men Type: BLOOD SPECIMENOrdering Facility: [facility] Address: [address] [place] [address] Performed By: #### 2 132-9, 2276-4, 2284-8, 56309-8 ####[facility] LABCLIA [id number] [place] [id number] [place] COMPLETE BLOOD COUNTon 08-12 Erythrocyte distribution width (RBC) [Ratio] 14.4 % Normal 11.5-15.0 [facility] Comment on above: Performed By: #### RED Delgado #### [facility] ([id number]) [address], [address] [place] [address] Hematocrit (Bld) [Volume fraction] 31.6 % Low 35-47 [facility] Comment on above: Performed By: #### RED Delgado #### [facility] ([id number]) [address], [address] [place] [address] Hemoglobin (Bld) [Mass/Vol] 10.6 g/dL Low 11.7-15.5 [facility] Comment on above: Performed By: #### RED Delgado #### [facility] ([id number]) [address], [address] [place] [address] MCH (RBC) [Entitic mass] 33.0 pg Normal 27-34 [facility] Comment on above: Performed By: #### Lara Sheikh, VIRGINIAPHYLLIS #### [facility] ([id number]) [address], [facility] [address] [place] [address] MCHC (RBC) [Mass/Vol] 33.5 g/dL Normal 32-36 [facility] Comment on above: Performed By: #### Lara Sheikh, VIRGINIAPHYLLIS #### [facility] ([id number]) [address], [address] [address] MCV (RBC) [Entitic vol] 99 fL Normal 80-100 [facility] Comment on above: Performed By: #### RED Delgado #### [facility] ([id number]) [address] [address] Platelet mean volume (Bld) [Entitic vol] 7.9 fL Normal 7-12 [facility] Comment on above: Performed By: #### Lara Sheikh VIRGINIAPHYLLIS #### [facility] ([id number]) [address] [address] Platelets (Bld) [#/Vol] 152 10*3/uL Normal 150-450 [facility] Comment on above: Performed By: #### Lara Sheikh VIRGINIAPHYLLIS #### [facility] ([id number]) [address] [address] RBC COUNT 3.21 X10E12/L Low 3.80-5.20 [facility] Comment on above: Performed By: #### Lara Sheikh VIRGINIAPHYLLIS #### [facility] ([id number]) [address] [address] WBC (Bld) [#/Vol] 3.8 10*3/uL Low 4.0-11.0 [facility] Comment on above: Performed By: #### RED Delgado #### [facility] ([id number]) [address], [address] [place] [address] MAGNESIUMon 08-12-2024 Magnesium [Mass/Vol] 2.4 mg/dL Normal 1.8-2.6 [facility] Comment on above: Performed By: #### RED Delgado #### [facility] ([id number]) [address], [address] [place] [address] PROTEIN CREAT RATIOon 2024 RANDOM URINE PROTEIN 250 mg/L High <120 [facility] Comment on above: Performed By: #### RED Delgado #### [facility] ([id number]) [address], [address] [place] [address] U/PRO/AGRICULTURAL ENGINEER RATIO CALC 0.17 Normal <0.2 [facility] Comment on above: Result Comment: Neph rotic Syndrome is associated with ratios >3.5 Performed By: #### RED Delgado #### [facility] ([id number]) [address], [address] [place] [address] URINE CREATININE,RDM 146.97 mg/dL Normal [facility] Comment on above: Performed By: #### RED Delgado #### [facility] ([id number]) [address], [address] [place] [address] Parathyrin.intact [Mass/Vol] on 08-12-2024 PTH INTACT 61 pg/mL Normal 12-88 [facility] Comment on above: Performed By: #### RED Delgado #### [facility] ([id number]) [address], [address] [place] [address] RENAL PANELon 08-12-2024 Albumin [Mass/Vol] 3.7 g/dL Normal 3.2-5.3 [facility] Comment on above: Performed By: #### RED Delgado #### [facility] ([id number]) [address], [address] [place] [address] Anion gap [Moles/Vol] 6 mmol/L Normal 5-15 [facility] Comment on above: Performed By: #### Lara Sheikh VIRGINIAPHYLLIS #### [facility] ([id number]) [address], [address] [place] [address] Calcium [Mass/Vol] 9.3 mg/dL Normal 8.5-10.5 [facility] Comment on above: Performed By: #### Lara Sheikh VIRGINIAPHYLLIS #### [facility] ([id number]) [address], [address] [place] [address] Chloride [Moles/Vol] 111 mmol/L High 98-109 [facility] Comment on above: Performed By: #### Lara Sheikh VIRGINIAPHYLLIS #### [facility] ([id number]) [address], [address] [place] [address] CO2 [Moles/Vol] 21 mmol/L Low 22-32 [facility] Comment on above: Performed By: #### Lara Sheikh VIRGINIAPHYLLIS #### [facility] ([id number]) [address], [address] [place] [address] Creatinine [Mass/Vol] 1.40 mg/dL High 0.40-1.00 [facility] Comment on above: Result Comment: METH OD TRACEABLE TO IDMS STANDARD Performed By: #### Lara Sheikh VIRGINIAPHYLLIS #### [facility] ([id number]) [address], [address] [place] [address] GFR/1.73 sq M.predicted among non-blacks MDRD (S/P/Bld) [Vol rate/Area] 40 mL/min/{1.73_m2} Low >59 [facility] Comment on above: Result Comment: Reported eGFR is based on the CKD-EPI 2020 equation that does not use a race coefficient. Performed By: #### RED Delgado #### [facility] ([id number]) [address], [address] [place] [address] Glucose [Mass/Vol] 100 mg/dL High 65-99 [facility] Comment on above: Performed By: #### Lara Sheikh, VIRGINIAPHYLLIS #### [facility] ([id number]) [address], [address] [place] [address] Phosphate [Mass/Vol] 3.1 mg/dL Normal 2.4-4.9 [facility] Comment on above: Performed By: #### Lara Sheikh VIRGINIAPHYLLIS #### [facility] ([id number]) [address], [address] [place] [address] Potassium [Moles/Vol] 4.9 mmol/L Normal 3.5-5.0 [facility] Comment on above: Performed By: #### Lara Sheikh, VIRGINIAPHYLLIS #### [facility] ([id number]) [address], [address] [place] [address] Sodium [Moles/Vol] 138 mmol/L Normal 134-146 [facility] Comment on above: Performed By: #### Lara Sheikh, VIRGINIAPHYLLIS #### [facility] ([id number]) [address], [address] [place] [address] Urea nitrogen [Mass/Vol] 38 mg/dL High 5-27 [facility] Comment on above: Performed By: #### Lara Sheikh, VIRGINIAPHYLLIS #### [facility] ([id number]) [address], [address] [place] [address] URIC ACIDon 08-12-2024 Urate [Mass/Vol] 7.3 mg/dL High 2.6-7.2 [facility] Comment on above: Performed By: #### RED Delgado #### [facility] ([id number]) [address], [address] [place] [address] URINALYSISon 08-12-2024 Bilirubin Ql (U) Negative Normal NEG [facility] Comment on above: Performed By: #### RED Delgado #### [facility] ([id number]) [address], [address] [place] [address] BLOOD/HGB Negative Normal NEG [facility] Comment on above: Performed By: #### RED Delgado #### [facility] ([id number]) [address], [address] [place] [address] Color (U) YELLOW Normal YELLOW [facility] Comment on above: Performed By: #### RED Delgado #### [facility] ([id number]) [address], [address] [place] [address] Glucose Ql (U) Negative Normal NEG [facility] Comment on above: Performed By: #### RED Delgado #### [facility] ([id number]) [address], [address] [place] [address] Ketones Ql (U) Negative Normal NEG [facility] Comment on above: Performed By: #### RED Delgado #### [facility] ([id number]) [address], [address] [place] [address] Leukocyte esterase Test strip Ql (U) Small Abnormal NEG [facility] Comment on above: Performed By: #### RED Delgado #### [facility] ([id number]) [address], [address] [place] [address] Nitrite Ql (U) Negative Normal NEG [facility] Comment on above: Performed By: #### RED Delgado #### [facility] ([id number]) [address], [address] [place] [address] pH (U) 6.0 [pH] Normal 5.0-8.5 [facility] Comment on above: Performed By: #### RED Delgado #### [facility] ([id number]) [address], [address] [place] [address] Protein Ql (U) Trace Abnormal NEG [facility] Comment on above: Performed By: #### Lara Sheikh, VIRGINIAPHYLLIS #### [facility] ([id number]) [address], [address] [place] [address] R.B.CELLS 1 /hpf Normal 0-5 [facility] Comment on above: Performed By: #### Lara Sheikh, VIRGINIAPHYLLIS #### [facility] ([id number]) [address], [address] [place] [address] Specific gravity (U) [Rel density] 1.015 Normal 1.003-1.035 [facility] Comment on above: Performed By: #### Lara Sheikh, VIRGINIAPHYLLIS #### [facility] ([id number]) [address], [address] [place] [address] SQUAMOUS EPITHELIUM 15 /hpf High 0-5 [facility] Comment on above: Performed By: #### Lara Sheikh, VIRGINIAPHYLLIS #### [facility] ([id number]) [address], [address] [place] [address] TRANSITIONAL EPITH 1 /hpf High 0 [facility] Comment on above: Performed By: #### Lara Sheikh, VIRGINIAPHYLLIS #### [facility] ([id number]) [address], [address] [place] [address] TURBIDITY HAZY Abnormal CLEAR [facility] Comment on above: Performed By: #### Lara Sheikh, VIRGINIAPHYLLIS #### [facility] ([id number]) [address], [address] [place] [address] Urobilinogen Qn (U) 0.2 {Hao'U}/dL Normal <1.1 [facility] Comment on above: Performed By: #### Lara Sheikh, RED #### [facility] ([id number]) [address], [address] [place] [address] W.B.CELLS 2 /hpf Normal 0-5 [facility] Comment on above: Performed By: #### RED Delgado #### [facility] ([id number]) [address], [address] [place] [address] Vitamin D+Metabolites [Mass/ Vol]on 08-12-2024 VITAMIN D 25 HYD TOT 19.5 ng/mL Low 30-100 [facility] Comment on above: Result Comment: Vitamin D status 25 [place] Vitamin D Deficiency <20 ng/mL Insufficiency 20-29 ng/mL Sufficiency 30-100 ng/mL Toxicity >100 ng/mL NOTE: A pediatric reference range has not been established by the double corner cutter of this kit. The [place] [employer] recommends a Vitamin D level of = or >20ng/mL in infants and children. Performed By: #### Lara Sheikh, RED #### [facility] ([id number]) [address] [place] [address] CNPNon 07-23-2024 CNPN Normal [facility] MR LOWER LEG LT W WO [...] Samaniego MD on 07/19/2024 6:30 AM Normal [facility] MR KNEE LT W WO CONTon 07-18 [...] Burton MD on 07/18/2024 3:48 PM Normal [facility] 36on 07-15-2024 36 Gray office chatman d and asked for both MRI orders to be sent over to the fax number [phone]. Death Claim Examiner faxed both papers over. Normal [facility] CBC W Auto Differential pane l (Bld)on 07-11-2024 Basophils (Bld) [#/Vol] 10*3/uL Normal <0.11 [facility] Comment on above: Order Comment: Speci men Type: BLOOD SPECIMENOrdering Facility: [facility] Address: [address] [place] [address] Performed By: #### 5 7021-8 ####[facility] LABCLIA [id number] [place] [address] Basophils/100 WBC (Bld) 0.5 % Normal C [facility] Comment on above: Order Comment: Speci men Type: BLOOD SPECIMENOrdering Facility: [facility] Address: [address] [place] [address] Performed By: #### 5 7021-8 ####[facility] LABCLIA [id number] [place] [address] Differential cell count method Nom (Bld) Auto Normal [facility] Comment on above: Order Comment: Speci men Type: BLOOD SPECIMENOrdering Facility: [facility] Address: [address] [place] [address] Performed By: #### 5 7021-8 ####[facility] LABCLIA [id number] [place] [address] Eosinophils (Bld) [#/Vol] 10*3/uL Normal <0.46 [facility] Comment on above: Order Comment: Speci men Type: BLOOD SPECIMENOrdering Facility: [facility] Address: [address] [place] [address] Performed By: #### 5 7021-8 ####[facility] LABCLIA [id number] [place] [address] Eosinophils/100 WBC (Bld) 0.5 % Normal [facility] Comment on above: Order Comment: Speci men Type: BLOOD SPECIMENOrdering Facility: [facility] Address: [address] [place] [address] Performed By: #### 5 7021-8 ####[facility] LABCLIA [id number] [place] [address] Erythrocyte distribution width (RBC) [Ratio] 13.9 % Normal 11.5-15.0 [facility] Comment on above: Order Comment: Speci men Type: BLOOD SPECIMENOrdering Facility: [facility] Address: [address] [place] [address] Performed By: #### 5 7021-8 ####[facility] LABCLIA [id number] [place] [address] Hematocrit (Bld) [Volume fraction] 34.4 % Low 36.0-46.0 [facility] Comment on above: Order Comment: Speci men Type: BLOOD SPECIMENOrdering Facility: [facility] Address: [address] [place] [address] Performed By: #### 5 7021-8 ####[facility] LABCLIA [id number] [place] [address] Hemoglobin (Bld) [Mass/Vol] 10.9 g/dL Low 11.5-15.5 [facility] Comment on above: Order Comment: Speci men Type: BLOOD SPECIMENOrdering Facility: [facility] Address: [address] [place] [address] Performed By: #### 5 7021-8 ####[facility] LABCLIA [id number] [place] [address] Immature granulocytes (Bld) [#/Vol] 10*3/uL Normal <0.10 [facility] Comment on above: Order Comment: Speci men Type: BLOOD SPECIMENOrdering Facility: [facility] Address: [address] [place] [address] Performed By: #### 5 7021-8 ####[facility] LABCLIA [id number] [place] [address] Immature granulocytes/100 WBC (Bld) 0.2 % Normal [facility] Comment on above: Order Comment: Speci men Type: BLOOD SPECIMENOrdering Facility: [facility] Address: [address] [place] [address] Performed By: #### 5 7021-8 ####[facility] LABCLIA [id number] [place] [address] Lymphocytes (Bld) [#/Vol] 1.56 10*3/uL Normal 1.00-4.00 [facility] Comment on above: Order Comment: Speci men Type: BLOOD SPECIMENOrdering Facility: [facility] Address: [address] [place] [address] Performed By: #### 5 7021-8 ####[facility] LABCLIA [id number] [place] [address] Lymphocytes/100 WBC (Bld) 36.2 % Normal [facility] Comment on above: Order Comment: Speci men Type: BLOOD SPECIMENOrdering Facility: [facility] Address: [address] [place] [address] Performed By: #### 5 7021-8 ####[facility] LABCLIA [id number] [place] [address] MCH (RBC) [Entitic mass] 31.7 pg Normal 26.0-34.0 [facility] Comment on above: Order Comment: Speci men Type: BLOOD SPECIMENOrdering Facility: [facility] Address: [address] [place] [address] Performed By: #### 5 7021-8 ####[facility] LABCLIA [id number] [place] [address] MCHC (RBC) [Mass/Vol] 31.7 g/dL Normal 30.5-36.0 [facility] Comment on above: Order Comment: Speci men Type: BLOOD SPECIMENOrdering Facility: [facility] Address: [address] [place] [address] Performed By: #### 5 7021-8 ####[facility] LABCLIA [id number] [place] [address] MCV (RBC) [Entitic vol] 100.0 fL Normal 80.0-100.0 C [facility] Comment on above: Order Comment: Speci men Type: BLOOD SPECIMENOrdering Facility: [facility] Address: [address] [place] [address] Performed By: #### 5 7021-8 ####[facility] LABCLIA [id number] [place] [address] Monocytes (Bld) [#/Vol] 0.18 10*3/uL Normal <0.87 [facility] Comment on above: Order Comment: Speci men Type: BLOOD SPECIMENOrdering Facility: [facility] Address: [address] [place] [address] Performed By: #### 5 7021-8 ####[facility] LABCLIA [id number] [place] [address] Monocytes/100 WBC (Bld) 4.2 % Normal C [facility] Comment on above: Order Comment: Speci men Type: BLOOD SPECIMENOrdering Facility: [facility] Address: [address] [place] [address] Performed By: #### 5 7021-8 ####[facility] LABCLIA [id number] [place] [address] Neutrophils (Bld) [#/Vol] 2.52 10*3/uL Normal 1.45-7.50 [facility] Comment on above: Order Comment: Speci men Type: BLOOD SPECIMENOrdering Facility: [facility] Address: [address] [place] [address] Performed By: #### 5 7021-8 ####[facility] LABCLIA [id number] [place] [address] Neutrophils/100 WBC (Bld) 58.4 % Normal [facility] Comment on above: Order Comment: Speci men Type: BLOOD SPECIMENOrdering Facility: [facility] Address: [address] [place] [address] Performed By: #### 5 7021-8 ####[facility] LABCLIA [id number] [place] [address] Nucleated RBC (Bld) [#/Vol] 10*3/uL Normal <0.01 [facility] Comment on above: Order Comment: Speci men Type: BLOOD SPECIMENOrdering Facility: [facility] Address: [address] [place] [address] Performed By: #### 5 7021-8 ####[facility] LABCLIA [id number] [place] [address] Nucleated RBC/100 WBC (Bld) [Ratio] 0.0 /100 WBC Normal [facility] Comment on above: Order Comment: Speci men Type: BLOOD SPECIMENOrdering Facility: [facility] Address: [address] [place] [address] Performed By: #### 5 7021-8 ####[facility] LABCLIA [id number] [place] [address] Platelet mean volume (Bld) [Entitic vol] 9.1 fL Normal 9.0-12.7 [facility] Comment on above: Order Comment: Speci men Type: BLOOD SPECIMENOrdering Facility: [facility] Address: [address] [place] [address] Performed By: #### 5 7021-8 ####[facility] LABCLIA [id number] [place] [address] Platelets (Bld) [#/Vol] 139 10*3/uL Low 150-400 [facility] Comment on above: Order Comment: Speci men Type: BLOOD SPECIMENOrdering Facility: [facility] Address: [address] [place] [address] Performed By: #### 5 7021-8 ####[facility] LABCLIA [id number] [place] [address] RBC (Bld) [#/Vol] 3.44 10*6/uL Low 3.90-5.20 [facility] Comment on above: Order Comment: Speci men Type: BLOOD SPECIMENOrdering Facility: [facility] Address: [address] [place] [address] Performed By: #### 5 7021-8 ####[facility] LABIA [id number] [place] [address] WBC (Bld) [#/Vol] 4.31 10*3/uL Normal 3.70-11.00 [facility] Comment on above: Order Comment: Speci men Type: BLOOD SPECIMENOrdering Facility: [facility] Address: [address] [place] [address] Performed By: #### 5 7021-8 ####[facility] LABIA [id number] [place] [address] CNNURSEon 07-11-2024 CNNURSE Normal [facility] CNOVSPon 07-11-2024 CNOVSP Normal [facility] Comprehensive metabolic 2000 panelon 07-11-2024 Albumin [Mass/Vol] 3.8 g/dL Low 3.9-4.9 [facility] Comment on above: Order Comment: Speci men Type: BLOOD SPECIMENOrdering Facility: [facility] Address: [address] [place] [address] Performed By: #### 2 4323-8 ####[facility] LABCLIA [id number] [place] [address] ALP [Catalytic activity/Vol] 68 U/L Normal 34-123 [facility] Comment on above: Order Comment: Speci men Type: BLOOD SPECIMENOrdering Facility: [facility] Address: [address] [place] [address] Performed By: #### 2 4323-8 ####[facility] LABCLIA [id number] [place] [address] ALT [Catalytic activity/Vol] 11 U/L Normal 7-38 [facility] Comment on above: Order Comment: Speci men Type: BLOOD SPECIMENOrdering Facility: [facility] Address: [address] [place] [address] Performed By: #### 2 4323-8 ####[facility] LABCLIA [id number] [place] [address] Anion gap [Moles/Vol] 7 mmol/L Low 8-15 [facility] Comment on above: Order Comment: Speci men Type: BLOOD SPECIMENOrdering Facility: [facility] Address: [address] [place] [address] Performed By: #### 2 4323-8 ####[facility] LABCLIA [id number] [place] [address] AST [Catalytic activity/Vol] 18 U/L Normal 13-35 [facility] Comment on above: Order Comment: Speci men Type: BLOOD SPECIMENOrdering Facility: [facility] Address: [address] [place] [address] Performed By: #### 2 4323-8 ####[facility] LABCLIA [id number] [place] [address] Bilirubin [Mass/Vol] 0.4 mg/dL Normal 0.2-1.3 [facility] Comment on above: Order Comment: Speci men Type: BLOOD SPECIMENOrdering Facility: [facility] Address: [address] [place] [address] Performed By: #### 2 4323-8 ####[facility] LABCLIA [id number] [place] [address] Calcium [Mass/Vol] 9.8 mg/dL Normal 8.5-10.2 [facility] Comment on above: Order Comment: Speci men Type: BLOOD SPECIMENOrdering Facility: [facility] Address: [address] [place] [address] Performed By: #### 2 4323-8 ####[facility] LABCLIA [id number] [place] [address] Chloride [Moles/Vol] 106 mmol/L Normal 98-107 [facility] Comment on above: Order Comment: Speci men Type: BLOOD SPECIMENOrdering Facility: [facility] Address: [address] [place] [address] Performed By: #### 2 4323-8 ####[facility] LABCLIA [id number] [place] [address] CO2 [Moles/Vol] 25 mmol/L Normal 22-30 [facility] Comment on above: Order Comment: Speci men Type: BLOOD SPECIMENOrdering Facility: [facility] Address: [address] [place] [address] Performed By: #### 2 4323-8 ####[facility] LABCLIA [id number] [place] [address] Creatinine [Mass/Vol] 1.34 mg/dL High 0.58-0.96 [facility] Comment on above: Order Comment: Speci men Type: BLOOD SPECIMENOrdering Facility: [facility] Address: [address] [place] [address] Performed By: #### 2 4323-8 ####[facility] LABCLIA [id number] [place] [address] Creatinine and Glomerular filtration rate.predicted panel (S/P/Bld) 42 mL/min/1.73m??? Low >=60 [facility] Comment on above: Order Comment: Speci men Type: BLOOD SPECIMENOrdering Facility: [facility] Address: [address] [place] [address] Result Comment: Miryam mated Glomerular Filtration Rate [...] actual GFR. Performed By: #### 2 4323-8 ####[facility] LABCLIA [id number] [place] [address] Glucose [Mass/Vol] 111 mg/dL High 74-99 [facility] Comment on above: Order Comment: Speci men Type: BLOOD SPECIMENOrdering Facility: [facility] Address: [address] [place] [address] Result Comment: The [place] Diabetes [employer] (ADA) provides guidance for cutoff [...] Standards of Medical Care in Diabetes 2016, [place] [employer]. Diabetes Care. 2016.39(Suppl 1). Performed By: #### 2 4323-8 ####[facility] LABCLIA [id number] [place] [address] Potassium [Moles/Vol] 5.1 mmol/L Normal 3.7-5.1 [facility] Comment on above: Order Comment: Speci men Type: BLOOD SPECIMENOrdering Facility: [facility] Address: [address] [place] [address] Performed By: #### 2 4323-8 ####[facility] LABCLIA [id number] [place] [address] Protein [Mass/Vol] 7.1 g/dL Normal 6.3-8.0 [facility] Comment on above: Order Comment: Speci men Type: BLOOD SPECIMENOrdering Facility: [facility] Address: [address] [place] [address] Performed By: #### 2 4323-8 ####[facility] LABCLIA [id number] [place] [address] Sodium [Moles/Vol] 138 mmol/L Normal 136-144 [facility] Comment on above: Order Comment: Speci men Type: BLOOD SPECIMENOrdering Facility: [facility] Address: [address] [place] [address] Performed By: #### 2 4323-8 ####[facility] LABCLIA [id number] [place] [address] Urea nitrogen [Mass/Vol] 34 mg/dL High 7-21 [facility] Comment on above: Order Comment: Speci men Type: BLOOD SPECIMENOrdering Facility: [facility] Address: [address] [place] [address] Performed By: #### 2 4323-8 ####[facility] LABCLIA [id number] [place] [address] Ferritin SerPl-mCncon 2024 Ferritin [Mass/Vol] 90.3 ng/mL Normal 14.7-205.1 [facility] Comment on above: Order Comment: Speci men Type: BLOOD SPECIMENOrdering Facility: [facility] Address: [address] [place] [address] Performed By: #### 2 284-8, 2132-9, 6-4, 49784-3 ####[facility] LABCLIA [id number] [address] [address] [place] Folate SerPl-mCncon 07-11-19 25 Folate [Mass/Vol] 5.4 ng/mL Normal >4.7 [facility] Comment on above: Order Comment: Speci men Type: BLOOD SPECIMENOrdering Facility: [facility] Address: [address] [place] [address] Performed By: #### 2 284-8, 2132-9, 6-4, 88030-6 ####[facility] LABCLIA [id number] [place] [id number] [place] Iron and Iron binding capaci ty panelon 07-11-2024 Iron [Mass/Vol] 54 ug/dL Normal 41-186 [facility] Comment on above: Order Comment: Speci men Type: BLOOD SPECIMENOrdering Facility: [facility] Address: [address] [place] [address] Performed By: #### 2 284-8, 2132-9, 6-4, 86501-6 ####[facility] LABCLIA [id number] [address] [place] Iron binding capacity [Mass/Vol] 362 ug/dL Normal 232-386 [facility] Comment on above: Order Comment: Speci men Type: BLOOD SPECIMENOrdering Facility: [facility] Address: [address] [place] [address] Performed By: #### 2 284-8, 2132-9, 6-4, 58400-5 ####[facility] LABCLIA [id number] [place] [id number] [place] Iron/TIBC [Molar ratio] 14.9 % Low 15.0-57.0 C [facility] Comment on above: Order Comment: Speci men Type: BLOOD SPECIMENOrdering Facility: [facility] Address: [address] [place] [address] Performed By: #### 2 284-8, 2132-9, 2276-4, 85581-0 ####[facility] LABCLIA [id number] [address] [address] [place] Vit B12 SerPl-ncon 025 Cobalamin (Vitamin B12) [Mass/Vol] 508 pg/mL Normal 232-1245 [facility] Comment on above: Order Comment: Speci men Type: BLOOD SPECIMENOrdering Facility: [facility] Address: [address] [place], [place] [address] Performed By: #### 2 284-8, 2132-9, 6-4, 47112-7 ####[facility] LABCLIA [id number] [address] [address] [place] Follow-Upon 05-31-2024 Follow-Up [id number] Andrei Fish 1950 F Date Provider Department Center 05/31/2024 MASSIEL HENDERSON MP ORTHO MPORTHO No family history on file Level of Service:03934 [place] OFFICE/OUTPATIENT ESTABLISHED MOD MDM 30 MIN (GC) Reason for Visit and Comments: Follow-up [480128] Pain [136] Normal [facility] CBC W Auto Differential pane l (Bld)on 05-30-2024 Basophils (Bld) [#/Vol] 10*3/uL Normal <0.11 [facility]: Order Comment: Speci men Type: BLOOD SPECIMENOrdering Facility: [facility] Address: [address] [place] [address] Performed By: #### 5 7021-8 ####[facility] LABCLIA [id number] [place] [address] Basophils/100 WBC (Bld) 0.2 % [facility] Comment on above: Order Comment: Speci men Type: BLOOD SPECIMENOrdering Facility: [facility] Address: [address] [place] [address] Performed By: #### 5 7021-8 ####[facility] LABCLIA [id number] [place] [address] Differential cell count method Nom (Bld) Auto Normal [facility] Comment on above: Order Comment: Speci men Type: BLOOD SPECIMENOrdering Facility: [facility] Address: [address] [place] [address] Performed By: #### 5 7021-8 ####[facility] LABCLIA [id number] [place] [address] Eosinophils (Bld) [#/Vol] 0.03 10*3/uL Normal <0.46 [facility] Comment on above: Order Comment: Speci men Type: BLOOD SPECIMENOrdering Facility: [facility] Address: [address] [place] [address] Performed By: #### 5 7021-8 ####[facility] LABCLIA [id number] [place] [address] Eosinophils/100 WBC (Bld) 0.7 % Normal [facility] Comment on above: Order Comment: Speci men Type: BLOOD SPECIMENOrdering Facility: [facility] Address: [address] [place] [address] Performed By: #### 5 7021-8 ####[facility] LABCLIA [id number] [place] [address] Erythrocyte distribution width (RBC) [Ratio] 14.6 % Normal 11.5-15.0 [facility] Comment on above: Order Comment: Speci men Type: BLOOD SPECIMENOrdering Facility: [facility] Address: [address] [place] [address] Performed By: #### 5 7021-8 ####[facility] LABCLIA [id number] [place] [address] Hematocrit (Bld) [Volume fraction] 32.8 % Low 36.0-46.0 [facility] Comment on above: Order Comment: Speci men Type: BLOOD SPECIMENOrdering Facility: [facility] Address: [address] [place] [address] Performed By: #### 5 7021-8 ####[facility] LABCLIA [id number] [place] [address] Hemoglobin (Bld) [Mass/Vol] 10.5 g/dL Low 11.5-15.5 [facility] Comment on above: Order Comment: Speci men Type: BLOOD SPECIMENOrdering Facility: [facility] Address: [address] [place] [address] Performed By: #### 5 7021-8 ####[facility] [facility] LABCLIA [id number] [place] [address] Immature granulocytes (Bld) [#/Vol] 10*3/uL Normal <0.10 [facility] Comment on above: Order Comment: Speci men Type: BLOOD SPECIMENOrdering Facility: [facility] Address: [address] [place] [address] Performed By: #### 5 7021-8 ####[facility] LABCLIA [id number] [place] [address] Immature granulocytes/100 WBC (Bld) 0.2 % Normal [facility] Comment on above: Order Comment: Speci men Type: BLOOD SPECIMENOrdering Facility: [facility] Address: [address] [place] [address] Performed By: #### 5 7021-8 ####[facility] LABCLIA [id number] [place] [address] Lymphocytes (Bld) [#/Vol] 1.98 10*3/uL Normal 1.00-4.00 [facility] Comment on above: Order Comment: Speci men Type: BLOOD SPECIMENOrdering Facility: [facility] Address: [address] [place] [address] Performed By: #### 5 7021-8 ####[facility] LABCLIA [id number] [place] [address] Lymphocytes/100 WBC (Bld) 43.3 % Normal [facility] Comment on above: Order Comment: Speci men Type: BLOOD SPECIMENOrdering Facility: [facility] Address: [address] [place] [address] Performed By: #### 5 7021-8 ####[facility] LABCLIA [id number] [place] [address] MCH (RBC) [Entitic mass] 31.7 pg Normal 26.0-34.0 [facility] Comment on above: Order Comment: Speci men Type: BLOOD SPECIMENOrdering Facility: [facility] Address: [address] [place] [address] Performed By: #### 5 7021-8 ####[facility] LABIA [id number] [place] [address] MCHC (RBC) [Mass/Vol] 32.0 g/dL Normal 30.5-36.0 [facility] Comment on above: Order Comment: Speci men Type: BLOOD SPECIMENOrdering Facility: [facility] Address: [address] [place] [address] Performed By: #### 5 7021-8 ####[facility] LABIA [id number] [place] [address] MCV (RBC) [Entitic vol] 99.1 fL Normal 80.0-100.0 C [facility] Comment on above: Order Comment: Speci men Type: BLOOD SPECIMENOrdering Facility: [facility] Address: [address] [place] [address] Performed By: #### 5 7021-8 ####[facility] LABIA [id number] [place] [address] Monocytes (Bld) [#/Vol] 0.20 10*3/uL Normal <0.87 [facility] Comment on above: Order Comment: Speci men Type: BLOOD SPECIMENOrdering Facility: [facility] Address: [address] [place] [address] Performed By: #### 5 7021-8 ####[facility] LABCLIA [id number] [place] [address] Monocytes/100 WBC (Bld) 4.4 % Normal [facility] Comment on above: Order Comment: Speci men Type: BLOOD SPECIMENOrdering Facility: [facility] Address: [address] [place] [address] Performed By: #### 5 7021-8 ####[facility] LABCLIA [id number] [place] [address] Neutrophils (Bld) [#/Vol] 2.34 10*3/uL Normal 1.45-7.50 [facility] Comment on above: Order Comment: Speci men Type: BLOOD SPECIMENOrdering Facility: [facility] Address: [address] [place] [address] Performed By: #### 5 7021-8 ####[facility] LABCLIA [id number] [place] [address] Neutrophils/100 WBC (Bld) 51.2 % Normal [facility] Comment on above: Order Comment: Speci men Type: BLOOD SPECIMENOrdering Facility: [facility] Address: [address] [place] [address] Performed By: #### 5 7021-8 ####[facility] LABCLIA [id number] [place] [address] Nucleated RBC (Bld) [#/Vol] 10*3/uL Normal <0.01 [facility] Comment on above: Order Comment: Speci men Type: BLOOD SPECIMENOrdering Facility: [facility] Address: [address] [place] [address] Performed By: #### 5 7021-8 ####[facility] LABCLIA [id number] [place] [address] Nucleated RBC/100 WBC (Bld) [Ratio] 0.0 /100 WBC Normal [facility] Comment on above: Order Comment: Speci men Type: BLOOD SPECIMENOrdering Facility: [facility] Address: [address] [place] [address] Performed By: #### 5 7021-8 ####[facility] LABCLIA [id number] [place] [address] Platelet mean volume (Bld) [Entitic vol] 9.5 fL Normal 9.0-12.7 [facility] Comment on above: Order Comment: Speci men Type: BLOOD SPECIMENOrdering Facility: [facility] Address: [address] [place] [address] Performed By: #### 5 7021-8 ####[facility] LABCLIA [id number] [place] [address] Platelets (Bld) [#/Vol] 157 10*3/uL Normal 150-400 [facility] Comment on above: Order Comment: Speci men Type: BLOOD SPECIMENOrdering Facility: [facility] Address: [address] [place] [address] Performed By: #### 5 7021-8 ####[facility] LABCLIA [id number] [place] [address] RBC (Bld) [#/Vol] 3.31 10*6/uL Low 3.90-5.20 [facility] Comment on above: Order Comment: Speci men Type: BLOOD SPECIMENOrdering Facility: [facility] Address: [address] [place] [address] Performed By: #### 5 7021-8 ####[facility] LABCLIA [id number] [place] [address] WBC (Bld) [#/Vol] 4.57 10*3/uL Normal 3.70-11.00 [facility] Comment on above: Order Comment: Speci men Type: BLOOD SPECIMENOrdering Facility: [facility] Address: [address] [place] [address] Performed By: #### 5 7021-8 ####[facility] LABCLIA [id number] [place] [address] CNNURSEon 05-30-2024 CNNURSE Normal [facility] CNOVSPon 05-30-2024 CNOVSP Normal [facility] Comprehensive metabolic 2000 panelon 05-30-2024 Albumin [Mass/Vol] 3.7 g/dL Low 3.9-4.9 [facility] Comment on above: Order Comment: Speci men Type: BLOOD SPECIMENOrdering Facility: [facility] Address: [address] [place], [place] [address] Performed By: #### 2 4323-8 ####[facility] LABCLIA [id number] [place] [address] ALP [Catalytic activity/Vol] 74 U/L Normal 34-123 [facility] Comment on above: Order Comment: Speci men Type: BLOOD SPECIMENOrdering Facility: [facility] Address: [address] [place] [address] Performed By: #### 2 4323-8 ####[facility] LABCLIA [id number] [place] [address] ALT [Catalytic activity/Vol] 13 U/L Normal 7-38 [facility] Comment on above: Order Comment: Speci men Type: BLOOD SPECIMENOrdering Facility: [facility] Address: [address] [place] [id number] Performed By: #### 2 4323-8 ####[facility] LABCLIA [id number] [place] [address] Anion gap [Moles/Vol] 8 mmol/L Normal 8-15 [facility] Comment on above: Order Comment: Speci men Type: BLOOD SPECIMENOrdering Facility: [facility] Address: [address] [place] [place] [id number] Performed By: #### 2 4323-8 ####[facility] LABCLIA [id number] [place] [address] AST [Catalytic activity/Vol] 20 U/L Normal 13-35 [facility] Comment on above: Order Comment: Speci men Type: BLOOD SPECIMENOrdering Facility: [facility] Address: [address] [place] [address] Performed By: #### 2 4323-8 ####[facility] LABCLIA [id number] [place] [address] Bilirubin [Mass/Vol] 0.5 mg/dL Normal 0.2-1.3 [facility] Comment on above: Order Comment: Speci men Type: BLOOD SPECIMENOrdering Facility: [facility] Address: [address] [place] [address] Performed By: #### 2 4323-8 ####[facility] LABCLIA [id number] [place] [address] Calcium [Mass/Vol] 9.4 mg/dL Normal 8.5-10.2 [facility] Comment on above: Order Comment: Speci men Type: BLOOD SPECIMENOrdering Facility: [facility] Address: [address] [place] [address] Performed By: #### 2 4323-8 ####[facility] LABCLIA [id number] [place] [address] Chloride [Moles/Vol] 106 mmol/L Normal 98-107 [facility] Comment on above: Order Comment: Speci men Type: BLOOD SPECIMENOrdering Facility: [facility] Address: [address] [place] [address] Performed By: #### 2 4323-8 ####[facility] LABCLIA [id number] [place] [address] CO2 [Moles/Vol] 27 mmol/L Normal 22-30 [facility] Comment on above: Order Comment: Speci men Type: BLOOD SPECIMENOrdering Facility: [facility] Address: [address] [place] [address] Performed By: #### 2 4323-8 ####[facility] LABCLIA [id number] [place] [address] Creatinine [Mass/Vol] 1.24 mg/dL High 0.58-0.96 [facility] Comment on above: Order Comment: Speci men Type: BLOOD SPECIMENOrdering Facility: [facility] Address: [address] [place] [address] Performed By: #### 2 4323-8 ####[facility] LABCLIA [id number] [place] [address] Creatinine and Glomerular filtration rate.predicted panel (S/P/Bld) 46 mL/min/1.73m??? Low >=60 [facility] Comment on above: Order Comment: Speci men Type: BLOOD SPECIMENOrdering Facility: [facility] Address: [address] [place] [address] Result Comment: Miryam mated Glomerular Filtration Rate [...] actual GFR. Performed By: #### 2 4323-8 ####[facility] LABCLIA [id number] [place] [address] Glucose [Mass/Vol] 118 mg/dL High 74-99 [facility] Comment on above: Order Comment: Speci men Type: BLOOD SPECIMENOrdering Facility: [facility] Address: [address] [place] [address] Result Comment: The [place] [employer] (ADA) provides guidance for cutoff [...] Standards of Medical Care in Diabetes 2016, [employer]. Diabetes Care. 2016.39(Suppl 1). Performed By: #### 2 4323-8 ####[facility] LABCLIA [id number] [place] [address] Potassium [Moles/Vol] 4.8 mmol/L Normal 3.7-5.1 [facility] Comment on above: Order Comment: Speci men Type: BLOOD SPECIMENOrdering Facility: [facility] Address: [address] [place] [address] Performed By: #### 2 4323-8 ####[facility] LABCLIA [id number] [place] [address] Protein [Mass/Vol] 7.3 g/dL Normal 6.3-8.0 [facility] Comment on above: Order Comment: Speci men Type: BLOOD SPECIMENOrdering Facility: [facility] Address: [address] [place] [address] Performed By: #### 2 4323-8 ####[facility] LABCLIA [id number] [place] [address] Sodium [Moles/Vol] 141 mmol/L Normal 136-144 [facility] Comment on above: Order Comment: Speci men Type: BLOOD SPECIMENOrdering Facility: [facility] Address: [address] [place] [address] Performed By: #### 2 4323-8 ####[facility] LABCLIA [id number] [place] [address] Urea nitrogen [Mass/Vol] 32 mg/dL High 7-21 [facility] Comment on above: Order Comment: Speci men Type: BLOOD SPECIMENOrdering Facility: [facility] Address: [address] [place] [address] Performed By: #### 2 4323-8 ####[facility] LABCLIA [id number] [place] [id number] Ferritin SerPl-mCncon 2023 Ferritin [Mass/Vol] 104.0 ng/mL Normal 14.7-205.1 [facility] Comment on above: Order Comment: Speci men Type: BLOOD SPECIMENOrdering Facility: [facility] Address: [address] [place] [address] Performed By: #### 5 0190-8, 2275-4, 2132-03, 2284-02 ####[facility] LABCLIA [id number] [place] [address] [place] Folate SerPl-mCncon 05-30-20 Folate [Mass/Vol] 5.1 ng/mL Normal >4.7 [facility] Comment on above: Order Comment: Speci men Type: BLOOD SPECIMENOrdering Facility: [facility] Address: [address] [place] [address] Performed By: #### 5 0190-8, 2275-4, 2132-03, 2284-02 ####[facility] LABCLIA [id number] [place] [address] [place] Iron and Iron binding capaci ty panelon 05-30-2024 Iron [Mass/Vol] 74 ug/dL Normal 41-186 [facility] Comment on above: Order Comment: Speci men Type: BLOOD SPECIMENOrdering Facility: [facility] Address: [address] [place] [address] Performed By: #### 5 0190-8, 2275-4, 2132-03, 2284-02 ####[facility] LABCLIA [id number] [place] [address] [place] Iron binding capacity [Mass/Vol] 349 ug/dL Normal 232-386 [facility] Comment on above: Order Comment: Speci men Type: BLOOD SPECIMENOrdering Facility: [facility] Address: [address] [place], [place] [address] Performed By: #### 5 0190-8, 4, 2132-03, 2284-02 ####[facility] LABCLIA [id number] [place] [id number] [place] Iron/TIBC [Molar ratio] 21.2 % Normal 15.0-57.0 [facility] Comment on above: Order Comment: Speci men Type: BLOOD SPECIMENOrdering Facility: [facility] Address: [address] [place] [address] Performed By: #### 5 0190-8, 2275-10, 2132-03, 2284-02 ####[facility] LABCLIA [id number] [place] [id number] [place] Vit B12 SerPl-ncon 024 Cobalamin (Vitamin B12) [Mass/Vol] 488 pg/mL Normal 232-1245 [facility] Comment on above: Order Comment: Speci men Type: BLOOD SPECIMENOrdering Facility: [facility] Address: [address] [place] [address] Performed By: #### 5 0190-8, 2275-10, 2132-03, 2284-02 ####[facility] LABCLIA [id number] [place] [id number] [place] C-REACTIVE PROTEINon 024 C REACTIVE PROTEIN (MG/L) IN SER/PLAS 14.7 mg/L High <=5.0 [facility] Comment on above: Result Comment: Test ing performed using a new methodology, turbidimetry. Normal ranges have been updated. Old normal range was <8 mg/L. Performed By: #### L AB149 #### [facility] ([facility]) [address] [place] [address] Labon 05-21-2024 Lab [id number] Andrei Fish 1950 Date Provider Department Center 05/21/20244-[facility] MP LAB RESOURCE MP DRAW Medical Pavi No family history on file Normal [facility] Office Visiton 05-21-2024 Follow-up visit [id number] Andrei Fish 1950 F Date Provider Department Center 05/21/2024 499-PETROS DOUG A MP ORTHO MPORTHO No family history on file Level of Service:74616 [place] OFFICE/OUTPATIENT ESTABLISHED LOW MDM 20 MIN Reason for Visit and Comments: New Patient [632] - Patient reports pain worse when walking, reports had tibia fx with repair in 2003 from , patient reports swelling and tenderness to read. Normal [facility] SEDIMENTATION RATEon 024 SEDIMENTATION RATE, ERYTHROCYTE 91 mm/hr High <=20 [facility] Comment on above: Performed By: #### L AB322 #### [facility] ([facility]) [address] [place] [address] XR Lumbar spine 2 or 3 Views [...] lumbar spine globally no acute bony process. [facility] Radiology Study observation (narrative) [facility] CBC W Auto Differential pane l (Bld)on 04-18-2024 Basophils (Bld) [#/Vol] 10*3/uL Normal <0.11 C [facility] Comment on above: Order Comment: Speci men Type: BLOOD SPECIMENOrdering Facility: [facility] Address: [address] [place] [address] Performed By: #### 5 7021-8, 40018-5 ####[facility] LABCLIA [id number] [place] [address] Basophils/100 WBC (Bld) 0.2 % Normal C [facility] Comment on above: Order Comment: Speci men Type: BLOOD SPECIMENOrdering Facility: [facility] Address: [address] [place] [address] Performed By: #### 5 7021-8, 56737-2 ####[facility] LABCLIA [id number] [place] [address] Differential cell count method Nom (Bld) Auto Normal [facility] Comment on above: Order Comment: Speci men Type: BLOOD SPECIMENOrdering Facility: [facility] Address: [address] [place] [address] Performed By: #### 5 7021-8, 11842-9 ####[facility] LABCLIA [id number] [place] [address] Eosinophils (Bld) [#/Vol] 0.03 10*3/uL Normal <0.46 [facility] Comment on above: Order Comment: Speci men Type: BLOOD SPECIMENOrdering Facility: [facility] Address: [address] [place] [address] Performed By: #### 5 7021-8, 38764-3 ####[facility] LABCLIA [id number] [place] [address] Eosinophils/100 WBC (Bld) 0.5 % Normal [facility] Comment on above: Order Comment: Speci men Type: BLOOD SPECIMENOrdering Facility: [facility] Address: [address] [place] [address] Performed By: #### 5 7021-8, 98319-2 ####[facility] LABCLIA [id number] [place] [address] Erythrocyte distribution width (RBC) [Ratio] 14.9 % Normal 11.5-15.0 [facility] Comment on above: Order Comment: Speci men Type: BLOOD SPECIMENOrdering Facility: [facility] Address: [address] [place] [address] Performed By: #### 5 7021-8, 11754-4 ####[facility] LABCLIA [id number] [place] [address] Hematocrit (Bld) [Volume fraction] 33.3 % Low 36.0-46.0 [facility] Comment on above: Order Comment: Speci men Type: BLOOD SPECIMENOrdering Facility: [facility] Address: [address] [place] [address] Performed By: #### 5 7021-8, 61486-3 ####[facility] LABCLIA [id number] [place] [address] Hemoglobin (Bld) [Mass/Vol] 10.7 g/dL Low 11.5-15.5 [facility] Comment on above: Order Comment: Speci men Type: BLOOD SPECIMENOrdering Facility: [facility] Address: [address] [place] [address] Performed By: #### 5 7021-8, 90572-2 ####[facility] LABCLIA [id number] [place] [address] Immature granulocytes (Bld) [#/Vol] 10*3/uL Normal <0.10 [facility] Comment on above: Order Comment: Speci men Type: BLOOD SPECIMENOrdering Facility: [facility] Address: [address] [place] [address] Performed By: #### 5 7021-8, 96374-7 ####[facility] LABCLIA [id number] [place] [address] Immature granulocytes/100 WBC (Bld) 0.2 % Normal [facility] Comment on above: Order Comment: Speci men Type: BLOOD SPECIMENOrdering Facility: [facility] Address: [address] [place] [address] Performed By: #### 5 7021-8, 52047-6 ####[facility] LABCLIA [id number] [place] [address] Lymphocytes (Bld) [#/Vol] 2.35 10*3/uL Normal 1.00-4.00 [facility] Comment on above: Order Comment: Speci men Type: BLOOD SPECIMENOrdering Facility: [facility] Address: [address] [place] [address] Performed By: #### 5 7021-8, 26559-2 ####[facility] LABCLIA [id number] [place] [address] Lymphocytes/100 WBC (Bld) 41.8 % Normal [facility] Comment on above: Order Comment: Speci men Type: BLOOD SPECIMENOrdering Facility: [facility] Address: [address] [place] [address] Performed By: #### 5 7021-8, 66829-9 ####[facility] LABCLIA [id number] [place] [address] MCH (RBC) [Entitic mass] 31.5 pg Normal 26.0-34.0 [facility] Comment on above: Order Comment: Speci men Type: BLOOD SPECIMENOrdering Facility: [facility] Address: [address] [place] [address] Performed By: #### 5 7021-8, 60034-9 ####[facility] LABIA [id number] [place] [address] MCHC (RBC) [Mass/Vol] 32.1 g/dL Normal 30.5-36.0 [facility] Comment on above: Order Comment: Speci men Type: BLOOD SPECIMENOrdering Facility: [facility] Address: [address] [place] [address] Performed By: #### 5 7021-8, 13409-5 ####[facility] LABCLIA [id number] [place] [address] MCV (RBC) [Entitic vol] 97.9 fL Normal 80.0-100.0 [facility] Comment on above: Order Comment: Speci men Type: BLOOD SPECIMENOrdering Facility: [facility] Address: [address] [place] [address] Performed By: #### 5 7021-8, 97629-7 ####[facility] LABCLIA [id number] [place] [address] Monocytes (Bld) [#/Vol] 0.29 10*3/uL Normal <0.87 [facility] Comment on above: Order Comment: Speci men Type: BLOOD SPECIMENOrdering Facility: [facility] Address: [address] [place] [address] Performed By: #### 5 7021-8, 98128-8 ####[facility] LABCLIA [id number] [place] [address] Monocytes/100 WBC (Bld) 5.2 % Normal [facility] Comment on above: Order Comment: Speci men Type: BLOOD SPECIMENOrdering Facility: [facility] Address: [address] [place] [address] Performed By: #### 5 7021-8, 82795-5 ####[facility] LABCLIA [id number] [place] [address] Neutrophils (Bld) [#/Vol] 2.93 10*3/uL Normal 1.45-7.50 [facility] Comment on above: Order Comment: Speci men Type: BLOOD SPECIMENOrdering Facility: [facility] Address: [address] [place] [address] Performed By: #### 5 7021-8, 02391-3 ####[facility] LABCLIA [id number] [place] [address] Neutrophils/100 WBC (Bld) 52.1 % Normal [facility] Comment on above: Order Comment: Speci men Type: BLOOD SPECIMENOrdering Facility: [facility] Address: [address] [place] [address] Performed By: #### 5 7021-8, 50693-3 ####[facility] LABCLIA [id number] [place] [address] Nucleated RBC (Bld) [#/Vol] 10*3/uL Normal <0.01 [facility] Comment on above: Order Comment: Speci men Type: BLOOD SPECIMENOrdering Facility: [facility] Address: [address] [place] [address] Performed By: #### 5 7021-8, 42096-0 ####[facility] LABCLIA [id number] [place] [address] Nucleated RBC/100 WBC (Bld) [Ratio] 0.0 /100 WBC Normal [facility] Comment on above: Order Comment: Speci men Type: BLOOD SPECIMENOrdering Facility: [facility] Address: [address] [place] [address] Performed By: #### 5 7021-8, 48393-0 ####[facility] LABIA [id number] [place] [address] Platelet mean volume (Bld) [Entitic vol] 9.7 fL Normal 9.0-12.7 [facility] Comment on above: Order Comment: Speci men Type: BLOOD SPECIMENOrdering Facility: [facility] Address: [address] [place] [address] Performed By: #### 5 7021-8, 96175-1 ####[facility] LABIA [id number] [place] [address] Platelets (Bld) [#/Vol] 174 10*3/uL Normal 150-400 [facility] Comment on above: Order Comment: Speci men Type: BLOOD SPECIMENOrdering Facility: [facility] Address: [address] [place] [address] Performed By: #### 5 7021-8, 24918-4 ####[facility] LABIA [id number] [place] [address] RBC (Bld) [#/Vol] 3.40 10*6/uL Low 3.90-5.20 [facility] Comment on above: Order Comment: Speci men Type: BLOOD SPECIMENOrdering Facility: [facility] Address: [address] [place] [address] Performed By: #### 5 7021-8, 69644-4 ####[facility] LABCLIA [id number] [place] [address] WBC (Bld) [#/Vol] 5.62 10*3/uL Normal 3.70-11.00 [facility] Comment on above: Order Comment: Speci men Type: BLOOD SPECIMENOrdering Facility: [facility] Address: [address] [place] [address] Performed By: #### 5 7021-8, 31068-4 ####[facility] LABIA [id number] [place] [address] CNNURSEon 04-18-2024 CNNURSE Normal [facility] CNOVSPon 04-18-2024 CNOVSP Normal [facility] metabolic 2000 panelon 04-18-2024 Albumin [Mass/Vol] 3.7 g/dL Low 3.9-4.9 [facility] Comment on above: Order Comment: Speci men Type: BLOOD SPECIMENOrdering Facility: [facility] Address: [address] [place] [address] Performed By: #### 2 4323-8 ####[facility] LABCLIA [id number] [place] [address] ALP [Catalytic activity/Vol] 77 U/L Normal 34-123 [facility] Comment on above: Order Comment: Speci men Type: BLOOD SPECIMENOrdering Facility: [facility] Address: [address] [place] [address] Performed By: #### 2 4323-8 ####[facility] LABIA [id number] [place] [address] ALT [Catalytic activity/Vol] 13 U/L Normal 7-38 [facility] Comment on above: Order Comment: Speci men Type: BLOOD SPECIMENOrdering Facility: [facility] Address: [address] [place] [address] Performed By: #### 2 4323-8 ####[facility] LABCLIA [id number] [place] [address] Anion gap [Moles/Vol] 17 mmol/L High 8-15 [facility] Comment on above: Order Comment: Speci men Type: BLOOD SPECIMENOrdering Facility: [facility] Address: [address] [place] [address] Performed By: #### 2 4323-8 ####[facility] LABCLIA [id number] [place] [address] AST [Catalytic activity/Vol] 22 U/L Normal 13-35 [facility] Comment on above: Order Comment: Speci men Type: BLOOD SPECIMENOrdering Facility: [facility] Address: [address] [place] [address] Performed By: #### 2 4323-8 ####[facility] LABCLIA [id number] [place] [address] Bilirubin [Mass/Vol] 0.4 mg/dL Normal 0.2-1.3 [facility] Comment on above: Order Comment: Speci men Type: BLOOD SPECIMENOrdering Facility: [facility] Address: [address] [place] [address] Performed By: #### 2 4323-8 ####[facility] LABCLIA [id number] [place] [address] Calcium [Mass/Vol] 9.4 mg/dL Normal 8.5-10.2 [facility] Comment on above: Order Comment: Speci men Type: BLOOD SPECIMENOrdering Facility: [facility] Address: [address] [place] [address] Performed By: #### 2 4323-8 ####[facility] LABCLIA [id number] [place] [address] Chloride [Moles/Vol] 101 mmol/L Normal 98-107 [facility] Comment on above: Order Comment: Speci men Type: BLOOD SPECIMENOrdering Facility: [facility] Address: [address] [place] [address] Performed By: #### 2 4323-8 ####[facility] LABCLIA [id number] [place] [address] CO2 [Moles/Vol] 24 mmol/L Normal 22-30 [facility] Comment on above: Order Comment: Speci men Type: BLOOD SPECIMENOrdering Facility: [facility] Address: [address] [place] [address] Performed By: #### 2 4323-8 ####[facility] LABCLIA [id number] [place] [address] Creatinine [Mass/Vol] 1.18 mg/dL High 0.58-0.96 [facility] Comment on above: Order Comment: Speci men Type: BLOOD SPECIMENOrdering Facility: [facility] Address: [address] [place] [address] Performed By: #### 2 4323-8 ####[facility] LABCLIA [id number] [place] [address] Creatinine and Glomerular filtration rate.predicted panel (S/P/Bld) 49 mL/min/1.73m??? Low >=60 [facility] Comment on above: Order Comment: Speci men Type: BLOOD SPECIMENOrdering Facility: [facility] Address: [address] [place] [address] Result Comment: Miryam mated Glomerular Filtration Rate [...] actual GFR. Performed By: #### 2 4323-8 ####[facility] LABCLIA [id number] [place] [address] Glucose [Mass/Vol] 103 mg/dL High 74-99 [facility] Comment on above: Order Comment: Speci men Type: BLOOD SPECIMENOrdering Facility: [facility] Address: [address] [place], [place] [address] Result Comment: The [place] Diabetes Association (ADA) provides guidance for cutoff [...] Standards of Medical Care in Diabetes 2016, Scottish Diabetes Association. Diabetes Care. 2016.39(Suppl 1). Performed By: #### 2 4323-8 ####[facility] LABCLIA [id number] [place] [address] Potassium [Moles/Vol] 4.9 mmol/L Normal 3.7-5.1 [facility] Comment on above: Order Comment: Virgilioi willie Type: BLOOD SPECIMENOrdering Facility: [facility] Address: [address] [place] [address] Performed By: #### 2 4323-8 ####[facility] LABCLIA [id number] [place] [address] Protein [Mass/Vol] 7.2 g/dL Normal 6.3-8.0 [facility] Comment on above: Order Comment: Speci men Type: BLOOD SPECIMENOrdering Facility: [facility] Address: [address] [place], [place] [address] Performed By: #### 2 4323-8 ####[facility] LABCLIA [id number] [place] [address] Sodium [Moles/Vol] 142 mmol/L Normal 136-144 [facility] Comment on above: Order Comment: Speci men Type: BLOOD SPECIMENOrdering Facility: [facility] Address: [address] [place] [address] Performed By: #### 2 4323-8 ####[facility] LABCLIA [id number] [place] [address] Urea nitrogen [Mass/Vol] 30 mg/dL High 7-21 [facility] Comment on above: Order Comment: Speci men Type: BLOOD SPECIMENOrdering Facility: [facility] Address: [address] [place] [address] Performed By: #### 2 4323-8 ####[facility] LABCLIA [id number] [place] [address] EPO SerPl-aCncon 04-18-2024 Erythropoietin (EPO) Qn 70.1 mIU/mL High 2.6-18.5 [facility] Comment on above: Order Comment: Speci men Type: BLOOD SPECIMENOrdering Facility: [facility] Address: [address] [place] [address] Performed By: #### 1 5061-5 ####[facility] LABIA [id number] [place] [address] [place] Ferritin SerPl-mCncon 2023 Ferritin [Mass/Vol] 86.9 ng/mL Normal 14.7-205.1 [facility] Comment on above: Order Comment: Speci men Type: BLOOD SPECIMENOrdering Facility: [facility] Address: [address] [place] [address] Performed By: #### 2 276-4, 41082-0, 2132-9, 2284-8 ####[facility] LABIA [id number] [place] [address] [place] Folate SerPl-mCncon 04-18-20 Folate [Mass/Vol] 6.2 ng/mL Normal >4.7 [facility] Comment on above: Order Comment: Speci men Type: BLOOD SPECIMENOrdering Facility: [facility] Address: [address] [place] [address] Performed By: #### 2 276-4, 02662-4, 2132-9, 2284-8 ####[facility] LABIA [id number] [place] [address] [place] HbA1c (Bld)on 04-18-2024 Average glucose Estimated from glycated hemoglobin (Bld) [Mass/Vol] 134 mg/dL [facility] Comment on above: eAG: (Estimated aver age glucose) is a calculated value from HgbA1c and is employee's representative of the average blood glucose level in the last 2-3 month period. HbA1c (Bld) [Mass fraction] 6.3 % High 4.3 - 5.6 % [facility] Comment on above: Scottish Diabetes As sociation guidelines indicate that patients with HgbA1c in the range 5.7-6.4% are at increased risk for development of diabetes, and intervention by lifestyle modification may be beneficial. HgbA1c greater or equal to 6.5% is considered diagnostic of diabetes. Interpretation and review of laboratory results Abnormal [facility] Average glucose Estimated from glycated hemoglobin (Bld) [Mass/Vol] 134 mg/dL Normal [facility] Comment on above: Order Comment: Fabricio tapia Type: BLOOD SPECIMENOrdering Facility: [facility] Address: [address] [place] [address] Result Comment: eAG: (Estimated average glucose) is a calculated value from HgbA1c and is employee's representative of the average blood glucose level in the last 2-3 month period. Performed By: #### 5 5454-3 ####[facility] LABIA [id number] [place] [address] [place] HbA1c (Bld) [Mass fraction] 6.3 % High 4.3-5.6 [facility] Comment on above: Order Comment: Fabricio tapia Type: BLOOD SPECIMENOrdering Facility: [facility] Address: [address] [place] [address] Result Comment: Amer [place] Diabetes Association guidelines indicate that patients with HgbA1c in the range 5.7-6.4% are at increased risk for development of diabetes, and intervention by lifestyle modification may be beneficial. HgbA1c greater or equal to 6.5% is considered diagnostic of diabetes. Performed By: #### 5 5454-3 ####[facility] LABIA [id number] [place] [address] [place] Iron and Iron binding capaci ty panelon 04-18-2024 Iron [Mass/Vol] 69 ug/dL Normal 41-186 [facility] Comment on above: Order Comment: Speci men Type: BLOOD SPECIMENOrdering Facility: [facility] Address: [address] [place] [address] Performed By: #### 2 276-4, 94327-6, 2132-03, 2284-02 ####[facility] LABIA [id number] [address] [place] Iron binding capacity [Mass/Vol] 340 ug/dL Normal 232-386 [facility] Comment on above: Order Comment: Speci men Type: BLOOD SPECIMENOrdering Facility: [facility] Address: [address] [place] [address] Performed By: #### 2 276-4, 22303-5, 2132-03, 2284-02 ####[facility] LABIA [id number] [place] [address] [place] Iron/TIBC [Molar ratio] 20.3 % Normal 15.0-57.0 [facility] Comment on above: Order Comment: Speci men Type: BLOOD SPECIMENOrdering Facility: [facility] Address: [address] [place] [address] Performed By: #### 2 276-4, 65850-2, 2132-03, 2284-02 ####[facility] LABIA [id number] [place] [id number] [place] Retics #on 04-18-2024 Reticulocytes (Bld) [#/Vol] 0.39516 10*3/uL Normal 0.018-0.100 [facility] Comment on above: Order Comment: Speci men Type: BLOOD SPECIMENOrdering Facility: [facility] Address: [facility] [place] [id number] Performed By: #### 5 7021-8, 44661-0 ####[facility] LABCLIA [id number] [place] [address] Reticulocytes (Bld) [#/Vol]o n 04-18-2024 Reticulocytes/100 RBC (Bld) 1.6 % Normal 0.4-2.0 [facility] Comment on above: Order Comment: Speci men Type: BLOOD SPECIMENOrdering Facility: [facility] Address: [address] [place], [place] [address] [address] Performed By: #### 5 7021-8, 54215-5 ####[facility] LABCLIA [id number] [place] [address] Vit B12 [facility] 024 Cobalamin (Vitamin B12) [Mass/Vol] 548 pg/mL Normal 232-1245 [facility] Comment on above: Order Comment: Speci men Type: BLOOD SPECIMENOrdering Facility: [facility] Address: [facility] [place] [address] Performed By: #### 2 276-4, 06571-7, 2132-9, 2284-8 ####[facility] LABCLIA [id number] [place] [id number] [place] MAMM SCREENING BILATERAL W C university tutor 04-17-2024 MAMM SCREENING BILATERAL W CAD MAMM SCREENING BILATERAL W CAD ANDREI Miranda FISH 1950 [id number] EXAM: MAMM SCREENING BILATERAL W CAD, 04/17/2024 [...] AM 1 c MAMM 1 YR Normal [facility] Momo 04-16-2024 L Specimen: [id number] Received: 04/19/24 Status: ANGEL Req Num: [id number] Spec Type: Cytology Subm Dr: KYUNG Reece Tissues: A FNA SLIDES NOPATH (RT THYROID) Procedures: Cyto Int and Re, PAPSTN/5 Age/ Patient Sex Location Account Attending Physician AbeAndrei 73/F LABELL [id number] Simon Zuniga MD SPEC NUM: [id number] RECD: 04/19/24 STATUS: ANGEL MOSESQ NUM: [id number] OMAR: 04/16/24- SUBM DR: KYUNG Reece ENTERED: 04/19/[address] [facility] [address]: Jocy,Lab Simon Zuniga MD SPEC TYPE: Cytology DEPT: [facility] NCYT ENTERED BY: [id number] RECV BY: [id number] ORDERED: Cyto Int and Re, PAPSTN/5 ORDERED: Cyto Int and Re, PAPSTN/5 Pathological Diagnosis Right thyroid nodule, fine needle aspiration (Smear and ThinPrep): - Satisfactory for evaluation. 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 - Negative for malignant cells. [...] at -20 microscopic examination. (MG/nh) ---- Specimen: [id number] Received: 04/19/24 Status: ANGEL Valente Num: [id number] Spec Type: Cytology Subm Dr: KYUNG Reece Tissues: A FNA SLIDES CHIQUITAATH (RT THYROID) Procedures: Cyto Int and Re, PAPSTN/5 ---- Patient: AbePaulalicia [id number] (Continued) ---- Specimen: [id number] Received: 04/19/24 (Continued) Signed (signature on file) Nnamdi Woodall MD 04/30/24 1143 ---- Specimen: [id number] Received: 04/19/24 Status: ANGEL Valente Num: [id number] Spec Type: Cytology Subm Dr: Stephanie J Aichholz, SEMICONDUCTOR EQUIPMENT TECHNICIAN-C Tissues: A FNA SLIDES NOPATH (RT THYROID) Procedures: Cyto Int and Re, PAPSTN/5 ---- Patient: Andrei Fish [id number] (Continued) ---- Specimen: [id number] Received: 04/19/24 (Continued) Microscopic Description Microscopic examination is performed. CPT Codes 41933, 08252 ---- ---- Specimen: [id number] Received: 04/19/24 Status: ANGEL Valente Num: [id number] Spec Type: Cytology Renee Dr: ZIGGY ReeceC Tissues: A FNA SLIDES NOPATH (RT THYROID) Procedures: Cyto Int and Re, PAPSTN/5 ---- Patient: Andrei Fihs [id number] (Continued) ---- Signed (signature on file) Nnamdi Woodall MD 04/30/24 1143 Normal [facility] CBC AND AUTO DIFFon 04-10-20 24 ABSOLUTE BASOPHIL 0.0 X10E9/L Normal 0.0-0.2 [facility] Comment on above: Performed By: #### 1 988-5, CBCA, 66318-4 #### [facility] ([id number]) [address] [address] [place] [address] ABSOLUTE NEUTROPHIL 2.7 X10E9/L Normal 1.5-6.6 [facility] Comment on above: Performed By: #### 1 988-5, CBCA, 88396-4 #### [facility] ([id number]) [address] [address] [place] [address] Basophils/100 WBC (Bld) 0.3 % Normal [facility] Comment on above: Performed By: #### 1 988-5, CBCA, 47075-0 #### [facility] ([id number]) [address] [place] [address] Eosinophils (Bld) [#/Vol] 0.0 10*3/uL Normal 0.0-0.4 [facility] Comment on above: Performed By: #### 1 988-5, CBCA, 06749-9 #### [facility] ([id number]) [address], [facility] [address] [place] [address] Eosinophils/100 WBC (Bld) 0.9 % Normal [facility] Comment on above: Performed By: #### 1 988-5, CBCA, 10281-7 #### [facility] ([id number]) [address], [facility] [address] [place] [address] Erythrocyte distribution width (RBC) [Ratio] 15.9 % High 11.5-15.0 [facility] Comment on above: Performed By: #### 1 988-5, CBCA, 17301-3 #### [facility] ([id number]) [address], [address] [place] [address] Hematocrit (Bld) [Volume fraction] 34.3 % Low 35-47 [facility] Comment on above: Performed By: #### 1 988-5, CBCA, 54564-4 #### [facility] ([id number]) [address], [facility] [address] [place] [address] Hemoglobin (Bld) [Mass/Vol] 11.3 g/dL Low 11.7-15.5 [facility] Comment on above: Performed By: #### 1 988-5, CBCA, 47075-3 #### [facility] ([id number]) [address], [facility] [address] [place] [address] Lymphocytes (Bld) [#/Vol] 2.1 10*3/uL Normal 1.0-3.5 [facility] Comment on above: Performed By: #### 1 988-5, CBCA, 45330-9 #### [facility] ([id number]) [address], [address] [place] [address] Lymphocytes/100 WBC (Bld) 40.8 % Normal [facility] Comment on above: Performed By: #### 1 988-5, CBCA, 53490-6 #### [facility] ([id number]) [address], [facility] [address] [place] [address] MCH (RBC) [Entitic mass] 31.8 pg Normal 27-34 [facility] Comment on above: Performed By: #### 1 988-5, CBCA, 27910-9 #### [facility] ([id number]) [address], [facility] [address] [place] [address] MCHC (RBC) [Mass/Vol] 32.8 g/dL Normal 32-36 [facility] Comment on above: Performed By: #### 1 988-5, CBCA, 47725-5 #### [facility] ([id number]) [address] [address] [place] [address] MCV (RBC) [Entitic vol] 97 fL Normal 80-100 [facility] Comment on above: Performed By: #### 1 988-5, CBCA, 62945-3 #### [facility] ([id number]) [address], [address] [place] [address] Monocytes (Bld) [#/Vol] 0.2 10*3/uL Normal 0-0.9 [facility] Comment on above: Performed By: #### 1 988-5, CBCA, 69619-7 #### [facility] ([id number]) [address], [address] [place] [address] Monocytes/100 WBC (Bld) 3.9 % Normal P [facility] Comment on above: Performed By: #### 1 988-5, CBCA, 64076-9 #### [facility] ([id number]) [address], [address] [place] [address] Neutrophils/100 WBC (Bld) 54.1 % Normal [facility] Comment on above: Performed By: #### 1 988-5, CBCA, 56672-6 #### [facility] ([id number]) [address], [address] [place] [address] Platelet mean volume (Bld) [Entitic vol] 8.3 fL Normal 7-12 [facility] Comment on above: Performed By: #### 1 988-5, CBCA, 59852-1 #### [facility] ([id number]) [address], [address] [place] [address] Platelets (Bld) [#/Vol] 208 10*3/uL Normal 150-450 [facility] Comment on above: Performed By: #### 1 988-5, CBCA, 84391-1 #### [facility] ([id number]) [address] [address] [place] [address] RBC COUNT 3.54 X10E12/L Low 3.80-5.20 [facility] Comment on above: Performed By: #### 1 988-5, CBCA, 08075-5 #### [facility] ([id number]) [address] [address] [place] [address] WBC (Bld) [#/Vol] 5.1 10*3/uL Normal 4.0-11.0 [facility] Comment on above: Performed By: #### 1 988-5, CBCA, 48605-5 #### [facility] ([id number]) [address], [address] [place] [address] CRP [Mass/Vol]on 04-10-2024 C REACTIVE PROTEIN 1.2 mg/dL High 0.000-0.744 [facility] Comment on above: Performed By: #### 1 988-5, CBCA, 49989-4 #### [facility] ([id number]) [address] [place] [address] ESR Photometric method (Bld) [Velocity]on 04-10-2024 ESR, ERYTHROCYTE SEDIMENTATION RATE 21 mm/h Normal 0-30 [facility] Comment on above: Performed By: #### 1 988-5, CBCA, 75818-9 #### [facility] ([id number]) [address] [facility] [address] [place] [address] CNPNon 04-09-2024 CNPN Normal [facility] HGB A1C (GLYCO-HGB)on 2023 Glucose [Mass/Vol] 134 mg/dL Normal [facility] Comment on above: Performed By: #### H A1C, THYR #### [facility] ([id number]) [address] [facility] [address], [facility] [address] [place] [address] HbA1c (Bld) [Mass fraction] 6.3 % High 4.4-5.6 [facility] Comment on above: Result Comment: NOTE ADA Guidelines Result HgbA1c Normal : less than 5.7 % Prediabetes : 5.7 % to 6.4 % Diabetes : > 6.4 % Use with caution in patients with abnormal hemoglobin variants as the half-life of red blood cells and in vivo glycation rates are affected. Performed By: #### H A1C, THYR #### [facility] ([id number]) [address] [address], [facility] [address] [place] [address] MICROALBUMIN - ALBUMIN:CREAT ININE URINE RATIOon 04-04-2024 ALB/CREAT RATIO 14.4 mg/g creat Normal 0.0-30.0 [facility] Comment on above: Performed By: #### RED Delgado #### [facility] ([id number]) [address] [place] [address] Albumin DL <= 20 mg/L (U) [Mass/Vol] 1.6 mg/dL Normal 0.0-1.9 [facility] Comment on above: Performed By: #### RED Delgado #### [facility] ([id number]) [address], [address] [place] [address] URINE CREAT 111.21 mg/dL Normal [facility] Comment on above: Performed By: #### RED Delgado #### [facility] ([id number]) [address], [address] [place] [address] THYROID PROFILEon 04-04-2024 Free T4 [Mass/Vol] 0.80 ng/dL Normal 0.61-1.60 [facility] Comment on above: Performed By: #### H A1C, THYR #### [facility] ([id number]) [address], [address] [place] [address] TSH 0.29 uIU/mL Low 0.49-4.67 [facility] Comment on above: Performed By: #### H A1C, THYR #### [facility] ([id number]) [address], [address] [place] [address] URINALYSISon 04-04-2024 Bilirubin Ql (U) Negative Normal NEG [facility] Comment on above: Performed By: #### RED Delgado #### [facility] ([id number]) [address], [address] [place] [address] BLOOD/HGB Negative Normal NEG [facility] Comment on above: Performed By: #### RED Delgado #### [facility] ([id number]) [address], [address] [place] [address] Color (U) YELLOW Normal YELLOW [facility] Comment on above: Performed By: #### RED Delgado #### [facility] ([id number]) [address], [address] [place] [address] Glucose Ql (U) Negative Normal NEG [facility] Comment on above: Performed By: #### Lara Sheikh, VIRGINIAPHYLLIS #### [facility] ([id number]) [address], [address] [place] [address] Ketones Ql (U) Negative Normal NEG [facility] Comment on above: Performed By: #### Lara Sheikh, VIRGINIAPHYLLIS #### [facility] ([id number]) [address], [address] [place] [address] Leukocyte esterase Test strip Ql (U) Negative Normal NEG [facility] Comment on above: Performed By: #### Lara Sheikh, VIRGINIAPHYLLIS #### [facility] ([id number]) [address], [address] [place] [address] MUCOUS PRESENT Abnormal NONE [facility] Comment on above: Performed By: #### Lara Sheikh, VIRGINIAPHYLLIS #### [facility] ([id number]) [address], [address] [place] [address] Nitrite Ql (U) Negative Normal NEG [facility] Comment on above: Performed By: #### Lara Sheikh, VIRGINIAPHYLLIS #### [facility] ([id number]) [address], [address] [place] [address] pH (U) 6.0 [pH] Normal 5.0-8.5 [facility] Comment on above: Performed By: #### Lara Sheikh, VIRGINIAPHYLLIS #### [facility] ([id number]) [address], [address] [place] [address] Protein Ql (U) Trace Abnormal NEG [facility] Comment on above: Performed By: #### Lara Sheikh, RED #### [facility] ([id number]) [address], [address] [place] [address] R.B.CELLS 1 /hpf Normal 0-5 [facility] Comment on above: Performed By: #### Lara Sheikh, VIRGINIAPHYLLIS #### [facility] ([id number]) [address], [address] [place] [address] Specific gravity (U) [Rel density] 1.017 Normal 1.003-1.035 [facility] Comment on above: Performed By: #### Lara Sheikh, VIRGINIAPHYLLIS #### [facility] ([id number]) [address], [address] [place] [address] SQUAMOUS EPITHELIUM 6 /hpf High 0-5 [facility] Comment on above: Performed By: #### Lara Sheikh, VIRGINIAPHYLLIS #### [facility] ([id number]) [address], [address] [place] [address] TURBIDITY CLEAR Normal CLEAR [facility] Comment on above: Performed By: #### Lara Sheikh, VIRGINIAPHYLLIS #### [facility] ([id number]) [address], [address] [place] [address] Urobilinogen (U) [Mass/Vol] mg/dL Normal <1.1 [facility] Comment on above: Performed By: #### Lara Sheikh, RED #### [facility] ([id number]) [address], [address] [address] W.B.CELLS 2 /hpf Normal 0-5 [facility] Comment on above: Performed By: #### Lara Sheikh, VIRGINIAPHYLLIS #### [facility] ([id number]) [address], [address] [place] [address] Urinalysis, manual onlyon Bilirubin Ql (U) Negative Negative [facility] Color (U) YELLOW YELLOW [facility] Epithelial cells Auto (Urine sed) [#/Area] 6 High [facility] Glucose (U) [Mass/Vol] Negative Negat david mg/dL [facility] Hemoglobin Auto test strip Ql (U) Negative Negative [facility] Interpretation and review of laboratory results Abnormal [facility] Ketones (U) [Mass/Vol] Negative Negat david mg/dL [facility] Leukocyte esterase Auto test strip Ql (U) Negative Negative [facility] Mucus Ql (Urine sed) PRESENT Abnormal NONE [facility] Nitrite Auto test strip Ql (U) Negative Negative [facility] pH (U) 6.0 [pH] 5.0 - 8.[address] [facility] Protein (U) [Mass/Vol] Trace Abnormal Negat david mg/dL [facility] RBC Auto (Urine sed) [#/Area] [address] [facility] Specific gravity Refractometry automated (U) [Rel density] 1.017 1.003 - 1.[address] [facility] Turbidity Ql (U) CLEAR CLEAR [facility] Urobilinogen Qn (U) <1.[address] [facility] WBC Auto (Urine sed) [#/Area] [address] [facility] Comment on above: PERFORMED AT [facility] [address],[place] [address] [facility] CT Internal auditory canal W O contraston [...] Tiffani Villagomez 11/14/2023 3:18 PM Dictation workstation: [id number] Interpreted By: Tiffani Mills, STUDY: CT IAC WO IV CONTRAST; 11/14/2023 3:03 pm INDICATION: Signs/Symptoms:cholest eatoma. COMPARISON: None. ACCESSION NUMBER(S): [id number] ORDERING CLINICIAN: SUSANNA GRAF TECHNIQUE: Noncontrast CT [...] INDICATION: Signs/Symptoms:cholest eatoma. COMPARISON: None. ACCESSION NUMBER(S): [id number] ORDERING CLINICIAN: SUSANNA GRAF TECHNIQUE: Noncontrast CT [...] Tiffani Villagomez 11/14/2023 3:18 PM Dictation workstation: [id number] [facility] Work Phone: Radiology Study observation (narrative) [facility] Work Phone: CT Internal auditory canal W O contrastOrdered By: Tiffani Villagomez on 11-14-2023 [facility] Work Phone: Auditory function testson Right Ear: Mild sensorineural hearing loss from 250 Hz - 500 Hz. 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 Severe mixed hearing loss above 3K Hz [facility] Dipstick & Microscopicon Dipstick & Microscopic No [facility] Other Dipstick and Microscopicon 1 08-29-2022 Appearance (U) Clear Normal Clear [facility] Comment on above: Order Comment: Reaso n for Exam HTN (hypertension);Lupus;Chronic ITP (idiopathic thrombocyto Name Collection Type:: Clean-Voided Midstream Performed By: #### A DDONUAPLUS #### [place] [address] [place] Bacteria,Urine None Seen Normal None Seen [facility] Comment on above: Order Comment: Reaso n for Exam HTN (hypertension);Lupus;Chronic ITP (idiopathic thrombocyto Name Collection Type:: Clean-Voided Midstream Performed By: #### A DDONUAPLUS #### [place] [id number] [place] Bilirubin,Urine Negative Normal Negative [facility] Comment on above: Order Comment: Reaso n for Exam HTN (hypertension);Lupus;Chronic ITP (idiopathic thrombocyto Name Collection Type:: Clean-Voided Midstream Performed By: #### A DDONUAPLUS #### [facility] [address] [place] [id number] [place] Color (U) Yellow Normal Yellow [facility] Comment on above: Order Comment: Reaso n for Exam HTN (hypertension);Lupus;Chronic ITP (idiopathic thrombocyto Name Collection Type:: Clean-Voided Midstream Performed By: #### A DDONUAPLUS #### [place] [id number] [place] Glucose Ql (U) Normal Normal Normal [facility] Comment on above: Order Comment: Reaso n for Exam HTN (hypertension);Lupus;Chronic ITP (idiopathic thrombocyto Name Collection Type:: Clean-Voided Midstream Performed By: #### A DDONUAPLUS #### [facility] [address] [place] [address] [place] Hyaline Casts,Urine 0-8 Normal 0-8 [facility] Comment on above: Order Comment: Reaso n for Exam HTN (hypertension);Lupus;Chronic ITP (idiopathic thrombocyto Name Collection Type:: Clean-Voided Midstream Result Comment: PERF ORMED BY: [place] [address] PATHOLOGIST TETRYL BOILING TUB OPERATOR IVORY BORRERO M.D. Performed By: #### A DDONUAPLUS #### [address] Ketones Ql (U) Negative Normal Negative [facility] Comment on above: Order Comment: Reaso n for Exam HTN (hypertension);Lupus;Chronic ITP (idiopathic thrombocyto Name Collection Type:: Clean-Voided Midstream Performed By: #### A DDONUAPLUS #### [place] [address] [place] Leukocyte esterase Test strip Ql (U) Negative Normal Negative [facility] Comment on above: Order Comment: Reaso n for Exam HTN (hypertension);Lupus;Chronic ITP (idiopathic thrombocyto Name Collection Type:: Clean-Voided Midstream Performed By: #### A DDONUAPLUS #### [place] [address] [place] Nitrite,Urine Negative Normal Negative [facility] Comment on above: Order Comment: Reaso n for Exam HTN (hypertension);Lupus;Chronic ITP (idiopathic thrombocyto Name Collection Type:: Clean-Voided Midstream Performed By: #### A DDONUAPLUS #### [place] [address] [place] Occult Blood,Urine Negative Normal Negative [facility] Comment on above: Order Comment: Reaso n for Exam HTN (hypertension);Lupus;Chronic ITP (idiopathic thrombocyto Name Collection Type:: Clean-Voided Midstream Performed By: #### A DDONUAPLUS #### [address] pH (U) 5.5 [pH] Normal 5.0-9.0 [facility] Comment on above: Order Comment: Reaso n for Exam HTN (hypertension);Lupus;Chronic ITP (idiopathic thrombocyto Name Collection Type:: Clean-Voided Midstream Performed By: #### A DDONUAPLUS #### [place] [address] [place] Protein,Urine Negative Normal Negative [facility] Comment on above: Order Comment: Reaso n for Exam HTN (hypertension);Lupus;Chronic ITP (idiopathic thrombocyto Name Collection Type:: Clean-Voided Midstream Performed By: #### A DDONUAPLUS #### [place] [address] [place] RBC,Urine 3-4 Normal 0-4 [facility] Comment on above: Order Comment: Reaso n for Exam HTN (hypertension);Lupus;Chronic ITP (idiopathic thrombocyto Name Collection Type:: Clean-Voided Midstream Performed By: #### A DDONUAPLUS #### [place] [address] [place] Specificy Bonn[place],Urine 1.019 Normal 1.001-1.030 [facility] Comment on above: Order Comment: Reaso n for Exam HTN (hypertension);Lupus;Chronic ITP (idiopathic thrombocyto Name Collection Type:: Clean-Voided Midstream Performed By: #### A DDONUAPLUS #### [place] [address] [place] Squamous Epithelial Cell,Urine 3-4 High 0-2 [facility] Comment on above: Order Comment: Reaso n for Exam HTN (hypertension);Lupus;Chronic ITP (idiopathic thrombocyto Name Collection Type:: Clean-Voided Midstream Performed By: #### A DDONUAPLUS #### [place] [address] [place] Urobilinogen,Urine Normal Normal Normal [facility] Comment on above: Order Comment: Reaso n for Exam HTN (hypertension);Lupus;Chronic ITP (idiopathic thrombocyto Name Collection Type:: Clean-Voided Midstream Performed By: #### A DDONUAPLUS #### [facility] [address] WBC LM.HPF (Urine sed) [#/Area] 0 /[HPF] Normal 0-4 [facility] Comment on above: Order Comment: Reaso n for Exam HTN (hypertension);Lupus;Chronic ITP (idiopathic thrombocyto Name Collection Type:: Clean-Voided Midstream Performed By: #### A DDONUAPLUS #### [facility] [address] Ferritinon 06-28-2023 Ferritin [Mass/Vol] 51.8263316 ng/mL Normal 11.0 -306.8 ng/mL [facility] Other Ferritin [Mass/Vol] 51.6 ng/mL Normal 11.0-306.8 [facility] Comment on above: Order Comment: Reaso n for Exam HTN (hypertension);Lupus;Chronic ITP (idiopathic thrombocyto Performed By: #### F ER, PROCRERAT, PTH, URIC, CBCNO, RENAL, MG, [id number] #### [facility] [address] Hemogram CBC Without Diffon 06-28-2023 Erythrocyte distribution width (RBC) [Ratio] 15.200 % Normal 11.9-15.3 % [facility] Other Hematocrit (Bld) [Volume fraction] 32.300 % Low 34.0-46.4 % [facility] Other Hemoglobin (Bld) [Mass/Vol] 10.830429 g/dL Low 11.8-15.4 g/dL [facility] Other MCH (RBC) [Entitic mass] 31.8000 pg Normal 24.7-34.3 pg [facility] Other MCV (RBC) [Entitic vol] 96.6000 fL Normal 80-100 fL [facility] Other Platelet mean volume (Bld) [Entitic vol] 8.3000 fL Normal 6.3-10.7 fL [facility] Other WBC (Bld) [#/Vol] 4.647745733 10*3/uL Normal 3.8 -11.6 10*3/uL [facility] Other Hemogram CBC Without Diff 32.9 g/dL Normal 32.0-35.0 g/dL [facility] Other Erythrocyte distribution width (RBC) [Ratio] 15.2 % Normal 11.9-15.3 [facility] Comment on above: Order Comment: Reaso n for Exam HTN (hypertension);Lupus;Chronic ITP (idiopathic thrombocyto Performed By: #### F ER, PROCRERAT, PTH, URIC, CBCNO, RENAL, MG, [id number] #### [address] Hematocrit (Bld) [Volume fraction] 32.3 % Low 34.0-46.4 [facility] Comment on above: Order Comment: Reaso n for Exam HTN (hypertension);Lupus;Chronic ITP (idiopathic thrombocyto Performed By: #### F ER, PROCRERAT, PTH, URIC, CBCNO, RENAL, MG, [id number] #### [facility] [address] Hemoglobin (Bld) [Mass/Vol] 10.6 g/dL Low 11.8-15.4 [facility] Comment on above: Order Comment: Reaso n for Exam HTN (hypertension);Lupus;Chronic ITP (idiopathic thrombocyto Performed By: #### F ER, PROCRERAT, PTH, URIC, CBCNO, RENAL, MG, [id number] #### [facility] [address] MCH (RBC) [Entitic mass] 31.8 pg Normal 24.7-34.3 [facility] Comment on above: Order Comment: Reaso n for Exam HTN (hypertension);Lupus;Chronic ITP (idiopathic thrombocyto Performed By: #### F ER, PROCRERAT, PTH, URIC, CBCNO, RENAL, MG, [id number] #### [address] MCV (RBC) [Entitic vol] 96.6 fL Normal 80-100 [facility] Comment on above: Order Comment: Reaso n for Exam HTN (hypertension);Lupus;Chronic ITP (idiopathic thrombocyto Performed By: #### F ER, PROCRERAT, PTH, URIC, CBCNO, RENAL, MG, [id number] #### [address] Mean Corpuscular HGB Conc 32.9 g/dL Normal 32.0-35.0 [facility] Comment on above: Order Comment: Reaso n for Exam HTN (hypertension);Lupus;Chronic ITP (idiopathic thrombocyto Performed By: #### F ER, PROCRERAT, PTH, URIC, CBCNO, RENAL, MG, [id number] #### [address] Platelet mean volume (Bld) [Entitic vol] 8.3 fL Normal 6.3-10.7 [facility] Comment on above: Order Comment: Reaso n for Exam HTN (hypertension);Lupus;Chronic ITP (idiopathic thrombocyto Result Comment: PERF ORMED BY: [place] [address] PATHOLOGIST TETRYL BOILING TUB OPERATOR IVORY BORRERO M.D. Performed By: #### F ER, PROCRERAT, PTH, URIC, CBCNO, RENAL, MG, [id number] #### [address] Platelets (Bld) [#/Vol] 161 10*3/uL Normal 150-450 [facility] Other Comment on above: Order Comment: Reaso n for Exam HTN (hypertension);Lupus;Chronic ITP (idiopathic thrombocyto Performed By: #### F ER, PROCRERAT, PTH, URIC, CBCNO, RENAL, MG, [id number] #### [address] RBC (Bld) [#/Vol] 3.34 10*6/uL Low 3.60-5.00 [facility] Other Comment on above: Order Comment: Reaso n for Exam HTN (hypertension);Lupus;Chronic ITP (idiopathic thrombocyto Performed By: #### F ER, PROCRERAT, PTH, URIC, CBCNO, RENAL, MG, [id number] #### [facility] [address] [place] [id number] [facility] WBC (Bld) [#/Vol] 4.7 10*3/uL Normal 3.8-11.6 [facility] Comment on above: Order Comment: Reaso n for Exam HTN (hypertension);Lupus;Chronic ITP (idiopathic thrombocyto Performed By: #### F ER, PROCRERAT, PTH, URIC, CBCNO, RENAL, MG, [id number] #### [facility] [address] [place] [address] [facility] Magnesiumon 06-28-2023 Magnesium [Mass/Vol] 2.2955286 mg/dL Normal 1.9- 2.7 mg/dL [facility] Other Magnesium [Mass/Vol] 2.5 mg/dL Normal 1.9-2.7 [facility] Comment on above: Order Comment: Reaso n for Exam HTN (hypertension);Lupus;Chronic ITP (idiopathic thrombocyto Performed By: #### F ER, PROCRERAT, PTH, URIC, CBCNO, RENAL, MG, [id number] #### [facility] [address] [place] [id number] [facility] Parathyroid Hormone Intacton 06-28-2023 Parathyroid Hormone Intact 41.9 pg/mL Normal 12-88 pg/mL [facility] Other Parathyroid Hormone Intact 41.9 pg/mL Normal 12-88 [facility] Comment on above: Order Comment: Reaso n for Exam HTN (hypertension);Lupus;Chronic ITP (idiopathic thrombocyto Result Comment: PERF ORMED BY: [address] [place] [address] PATHOLOGIST TETRYL BOILING TUB OPERATOR IVORY BORRERO M.D. Performed By: #### F ER, PROCRERAT, PTH, URIC, CBCNO, RENAL, MG, [id number] #### [facility] [address] [place] [address] [facility] Protein Creat Ratio Ur Rando mon 06-28-2023 Albumin Test strip detection limit <= 20 mg/L (U) [Mass/Vol] 9 mg/dL Normal 0-9 mg/dL [facility] Other Protein Creat Ratio Ur Random 96.0 mg/dL High 11.0-20.0 mg/dL [facility] Other Protein Creat Ratio Ur Random 94 mg/g{Cre} Normal 0-200 mg/g{Cre} [facility] Other Creatinine, Urine (Random) 96.0 mg/dL High 11.0-20.0 [facility] Comment on above: Order Comment: Reaso n for Exam HTN (hypertension);Lupus;Chronic ITP (idiopathic thrombocyto Performed By: #### F ER, PROCRERAT, PTH, URIC, CBCNO, RENAL, MG, [id number] #### [facility] [address] [place] [id number] [facility] Protein (U) [Mass/Vol] 9 mg/dL Normal 0-9 [facility] Comment on above: Order Comment: Reaso n for Exam HTN (hypertension);Lupus;Chronic ITP (idiopathic thrombocyto Performed By: #### F ER, PROCRERAT, PTH, URIC, CBCNO, RENAL, MG, [id number] #### [facility] [address] [place] [id number] [facility] Urine Protein/Creatinine Ratio 94 mg/g{Cre} Normal 0-200 [facility] Comment on above: Order Comment: Reaso n for Exam HTN (hypertension);Lupus;Chronic ITP (idiopathic thrombocyto Result Comment: PERF ORMED BY: [place] [address] PATHOLOGIST TETRYL BOILING TUB OPERATOR IVORY BORRERO M.D. Performed By: #### F ER, PROCRERAT, PTH, URIC, CBCNO, RENAL, MG, [id number] #### [facility] [address] [place] [address] [facility] Renal Function Panelon 06-28 Albumin [Mass/Vol] 3.526419 g/dL Normal 3.5-5.7 g/dL [facility] Other Calcium [Mass/Vol] 9.3810850 mg/dL Normal 8.6-10 .3 mg/dL [facility] Other CO2 [Moles/Vol] 26.87591270 mmol/L Normal 21.0-3 1.0 mmol/L [facility] Other Creatinine [Mass/Vol] 1.18103367 mg/dL Normal 0. 60-1.20 mg/dL [facility] Other Phosphate [Mass/Vol] 3.3217579 mg/dL Normal 2.5- 4.5 mg/dL [facility] Other Potassium [Moles/Vol] 4.39632307 mmol/L Normal 3 .5-5.1 mmol/L [facility] Other Albumin [Mass/Vol] 3.7 g/dL Normal 3.5-5.7 [facility] Comment on above: Order Comment: Reaso n for Exam HTN (hypertension);Lupus;Chronic ITP (idiopathic thrombocyto Performed By: #### F ER, PROCRERAT, PTH, URIC, CBCNO, RENAL, MG, [id number] #### [facility] [address] [place] [id number] [facility] Anion gap [Moles/Vol] 10.5 mmol/L Normal 6.0-15.0 [facility] Comment on above: Order Comment: Reaso n for Exam HTN (hypertension);Lupus;Chronic ITP (idiopathic thrombocyto Performed By: #### F ER, PROCRERAT, PTH, URIC, CBCNO, RENAL, MG, [id number] #### [facility] [address] [place] [address] [facility] Calcium [Mass/Vol] 9.2 mg/dL Normal 8.6-10.3 [facility] Comment on above: Order Comment: Reaso n for Exam HTN (hypertension);Lupus;Chronic ITP (idiopathic thrombocyto Performed By: #### F ER, PROCRERAT, PTH, URIC, CBCNO, RENAL, MG, [id number] #### [facility] [address] [place] [id number] [facility] Chloride [Moles/Vol] 108 mmol/L High 98-107 [facility] Other Comment on above: Order Comment: Reaso n for Exam HTN (hypertension);Lupus;Chronic ITP (idiopathic thrombocyto Performed By: #### F ER, PROCRERAT, PTH, URIC, CBCNO, RENAL, MG, [id number] #### [facility] [address] [place] [id number] [facility] CO2 [Moles/Vol] 26.1 mmol/L Normal 21.0-31.0 [facility] Comment on above: Order Comment: Reaso n for Exam HTN (hypertension);Lupus;Chronic ITP (idiopathic thrombocyto Performed By: #### F ER, PROCRERAT, PTH, URIC, CBCNO, RENAL, MG, [id number] #### [facility] [address] [place] [id number] [facility] Creatinine [Mass/Vol] 1.13 mg/dL Normal 0.60-1.20 [facility] Comment on above: Order Comment: Reaso n for Exam HTN (hypertension);Lupus;Chronic ITP (idiopathic thrombocyto Performed By: #### F ER, PROCRERAT, PTH, URIC, CBCNO, RENAL, MG, [id number] #### [facility] [address] [place] [id number] [place] GFR/1.73 sq M.predicted MDRD (S/P/Bld) [Vol rate/Area] 51.692 mL/min/{1.73_m2} Normal [facility] Other Comment on above: Order Comment: Reaso n for Exam HTN (hypertension);Lupus;Chronic ITP (idiopathic thrombocyto Performed By: #### F ER, PROCRERAT, PTH, URIC, CBCNO, RENAL, MG, [id number] #### [facility] [address] [place] [address] [facility] Glucose [Mass/Vol] 116 mg/dL High 70-100 [facility] Other Comment on above: Order Comment: Reaso n for Exam HTN (hypertension);Lupus;Chronic ITP (idiopathic thrombocyto Result Comment: [facility] Glucose Reference Range is dependent on time and content of last meal. Glucose of more than 200 mg/dL in a nonstressed, ambulatory subject supports the diagnosis of Diabetes Mellitus. ADA recommended reference range Performed By: #### F ER, PROCRERAT, PTH, URIC, CBCNO, RENAL, MG, [id number] #### [facility] [address] [place] [id number] [place] Phosphate [Mass/Vol] 3.1 mg/dL Normal 2.5-4.5 [facility] Comment on above: Order Comment: Reaso n for Exam HTN (hypertension);Lupus;Chronic ITP (idiopathic thrombocyto Performed By: #### F ER, PROCRERAT, PTH, URIC, CBCNO, RENAL, MG, [id number] #### [facility] [address] [place] [id number] [place] Potassium [Moles/Vol] 4.6 mmol/L Normal 3.5-5.1 [facility] Comment on above: Order Comment: Reaso n for Exam HTN (hypertension);Lupus;Chronic ITP (idiopathic thrombocyto Performed By: #### F ER, PROCRERAT, PTH, URIC, CBCNO, RENAL, MG, [id number] #### [facility] [address] [place] [address] [place] Sodium [Moles/Vol] 140 mmol/L Normal 136-145 [employer] Other Comment on above: Order Comment: Reaso n for Exam HTN (hypertension);Lupus;Chronic ITP (idiopathic thrombocyto Performed By: #### F ER, PROCRERAT, PTH, URIC, CBCNO, RENAL, MG, [id number] #### [facility] [address] [place] [address] [place] Urea nitrogen [Mass/Vol] 39 mg/dL High 7-25 [employer] Other Comment on above: Order Comment: Reaso n for Exam HTN (hypertension);Lupus;Chronic ITP (idiopathic thrombocyto Performed By: #### F ER, PROCRERAT, PTH, URIC, CBCNO, RENAL, MG, [id number] #### [facility] [address] [place] [id number] [facility] Uric Acidon 06-28-2023 Urate [Mass/Vol] 6.0576708 mg/dL High 2.3-6.6 mg/dL [facility] Other Urate [Mass/Vol] 6.8 mg/dL High 2.3-6.6 [facility] Comment on above: Order Comment: Reaso n for Exam HTN (hypertension);Lupus;Chronic ITP (idiopathic thrombocyto Performed By: #### F ER, PROCRERAT, PTH, URIC, CBCNO, RENAL, MG, [id number] #### [address] Vitamin D 25 Hydroxy Totalon 06-28-2023 Vitamin D 25 Hydroxy Total 11.8 ng/mL Low 30-100 ng/mL [employer] [facility] Other Vitamin D 25 Hydroxy Total 11.8 ng/mL Low 30-100 [facility] Comment on above: Order Comment: Reaso n for Exam HTN (hypertension);Lupus;Chronic ITP (idiopathic thrombocyto Result Comment: JENNIFER MIN D STATUS 25(OH)VITAMIN D RANGE (ng/mL) Deficient <20 Insufficient 20 to <30 Sufficient 30 to 100 Reference: Sunita MF,Adarsh NC, Ranulfo VELAZQUEZ, et al. Evaluation,treatment, and prevention of vitamin D deficiency; an Endocrine Society clinical practice guideline. JCEM. 2010; 96(7):1911-30. PERFORMED BY: [place] [address] PATHOLOGIST TETRYL BOILING TUB OPERATOR IVORY BORRERO M.D. Performed By: #### F ER, PROCRERAT, PTH, URIC, CBCNO, RENAL, MG, [id number] #### [place] [id number] [facility] Albumin [Mass/volume] in Ser um or PlasmaOrdered By: Gilson Ceja on 08-29-2022 Albumin [Mass/Vol] 3.2 g/dL 3.2-5.5 [facility] erythrocytes count in urine sediment (number/area)Ordered By: Gilson Ceja on 08-29-2022 RBC Auto (Urine sed) [#/Area] 1-2 [HPF] 0-4 [facility] Automated leukocytes count i n urine sediment (number/area)Ordered By: Gilson Ceja on 08-29-2022 WBC Auto (Urine sed) [#/Area] 0-1 [HPF] 0-4 [facility] Bilirubin Test strip Ql (U)O rdered By: Gilson Ceja on 08-29-2022 Bilirubin Ql (U) Negative Negative [facility] Color Auto (U)Ordered By: Ab christiano Ceja on 08-29-2022 Color (U) Yellow Yellow [facility] Creatinine [Mass/volume] in UrineOrdered By: Gilson Ceja on 08-29-2022 Creatinine (U) [Mass/Vol] 94.2 mg/dL [facility] Comment on above: No reference range e stablished Creatinine and Glomerular fi ltration rate.predicted panel (S/P/Bld)Ordered By: Gilson Ceja on 08-29-2022 Creatinine [Mass/Vol] 0.80 mg/dL 0.44-1.03 [facility] Erythrocyte distribution wid th Auto (RBC) [Ratio]Ordered By: Gilson Ceja on 08-29-2022 Erythrocyte distribution width (RBC) [Ratio] 14.9 % 11.9-15.3 [facility] Estimated glomerular filtrat ion rate (GFR) non- AmericanOrdered By: Gilson Ceja on 08-29-2022 GFR/1.73 sq M.predicted among non-blacks MDRD (S/P/Bld) [Vol rate/Area] > 60 mL/Min [facility] Hematocrit Auto (Bld) [Volum e fraction]Ordered By: Gilson Ceja on 08-29-2022 Hematocrit (Bld) [Volume fraction] 34.9 % 34.0-46.4 [facility] Hemoglobin [Mass/volume] in BloodOrdered By: Gilson Ceja on 08-29-2022 Hemoglobin (Bld) [Mass/Vol] 11.2 g/dL 11.8-15.4 [facility] Ketones Auto test strip (U) [Mass/Vol]Ordered By: Gilson Ceja on 08-29-2022 Ketones (U) [Mass/Vol] Negative Negative [facility] and C hemistry - challengeOrdered By: Gilson Ceja on 08-29-2022 Magnesium [Mass/Vol] 2.1 mg/dL 1.6-2.6 [facility] Laboratory - UrinalysisOrder ed By: Gilson Ceja on 08-29-2022 Hyaline casts LM Ql (Urine sed) 0-8 [LPF] 0-8 [facility] Leukocytes [#/volume] correc austin for nucleated erythrocytes in Blood by Automated counOrdered By: Gilson Ceja on 08-29-2022 WBC corrected for nucl RBC Auto (Bld) [#/Vol] 4.3 10*3/uL 3.8-11.6 [facility] MCH Auto (RBC) [Entitic mass ]Ordered By: Gilson Ceja on 08-29-2022 MCH (RBC) [Entitic mass] 29.5 pg 24.7-34.3 [facility] MCHC Auto (RBC) [Mass/Vol]Or dered By: Gilson Ceja on 08-29-2022 MCHC (RBC) [Mass/Vol] 32.1 g/dL 32.0-35.0 [facility] MCV Auto (RBC) [Entitic vol] Ordered By: Gilson Ceja on 08-29-2022 MCV (RBC) [Entitic vol] 92.0 fL 80-100 F [facility] Nitrite Test strip Ql (U)Ord ered By: Gilson Ceja on 08-29-2022 Nitrite Ql (U) Negative Negative [facility] No Panel InformationOrdered By: Gilson Ceja on 08-29-2022 Estimated GFR () > 60 mL/Min [facility] Comment on above: GFR estimated refere nce range: According to KDOQI guidelines, <60 ml/min/1.73m2 is sufficient to diagnose a patient with chronic kidney disease. Pharmacy Creatinine Clearance (Chem N/A [facility] Phosphate [Mass/volume] in S henok or PlasmaOrdered By: Gilson Ceja on 08-29-2022 Phosphate [Mass/Vol] 3.1 mg/dL 2.5-4.6 [facility] Platelet mean volume Auto (B ld) [Entitic vol]Ordered By: Gilson Zeinab on 08-29-2022 Platelet mean volume (Bld) [Entitic vol] 8.4 fL 6.3-10.7 [facility] Platelets Auto (Bld) [#/Vol] Ordered By: Gilson Ceja on 08-29-2022 Platelets (Bld) [#/Vol] 124 10*3/uL 150-450 [facility] Protein Auto test strip (U) [Mass/Vol]Ordered By: Gilson Ceja on 08-29-2022 Protein (U) [Mass/Vol] Negative Negative Fi [facility] Protein [Mass/volume] in Uri neOrdered By: Gilson Ceja on 08-29-2022 Protein (U) [Mass/Vol] 9 mg/dL 0-9 Fi [facility] RBC Auto (Bld) [#/Vol]Ordere d By: Gilson Ceja on 08-29-2022 RBC (Bld) [#/Vol] 3.79 10*6/uL 3.60-5.00 [facility] Serum or plasma anion gap de terminationOrdered By: Gilson Ceja on 08-29-2022 Anion gap [Moles/Vol] 10.9 mmol/L 6.0-15.0 Fi [facility] Serum or plasma calcium ramya urement (mass/volume)Ordered By: Gilson Ceja on 08-29-2022 Calcium [Mass/Vol] 8.8 mg/dL 8.2-10.2 [facility] Serum or plasma chloride brandy surement (moles/volume)Ordered By: Gilson Ceja on 08-29-2022 Chloride [Moles/Vol] 99 mmol/L 95-114 [facility] Serum or plasma glucose ramya urement (mass/volume)Ordered By: Gilson Ceja on 08-29-2022 Glucose [Mass/Vol] 89 mg/dL 70-100 [facility] Comment on above: ADA recommended refe rence rangeRandom Glucose Reference Range is dependent on time and content of last meal. Glucose of more than 200 mg/dL in a nonstressed, ambulatory subject supports the diagnosis of Diabetes Mellitus. Serum or plasma potassium me asurement (moles/volume)Ordered By: Gilson Ceja on 08-29-2022 Potassium [Moles/Vol] 3.9 mmol/L 3.5-5.1 [facility] Serum or plasma sodium measu rement (moles/volume)Ordered By: Gilson Ceja on 08-29-2022 Sodium [Moles/Vol] 134 mmol/L 136-146 [facility] Serum or plasma total carbon dioxide measurement (moles/volume)Ordered By: Gilson Ceja on 08-29-2022 CO2 [Moles/Vol] 28.0 mmol/L 22.0-30.0 [facility] Serum or plasma urea nitroge n measurement (mass/volume)Ordered By: Gilson Ceja on 08-29-2022 Urea nitrogen [Mass/Vol] 19 mg/dL 9-23 [facility] Specific gravity Auto test s trip (U) [Rel density]Ordered By: Gilson Ceja on 08-29-2022 Specific gravity (U) [Rel density] 1.015 1.001-1.030 [facility] Squamous epithelial cells de tection in urine sediment by light microscopyOrdered By: Gilson Ceja on 08-29-2022 Epithelial cells.squamous LM Ql (Urine sed) 3-4 [HPF] 0-2 [facility] Urine bacteria detection by automated methodOrdered By: Gilson Ceja on 08-29-2022 Bacteria Auto Ql (U) None seen None Seen [facility] Urine clarity by refractomet ry automatedOrdered By: Gilson Ceja on 08-29-2022 Clarity Refractometry automated (U) Clear Clear [facility] Urine glucose measurement by automated test strip (mass/volume)Ordered By: Gilson Ceja on 08-29-2022 Glucose Auto test strip (U) [Mass/Vol] Normal mg/dL Normal [facility] Urine hemoglobin detection b y automated test stripOrdered By: Gilson Ceja on 08-29-2022 Hemoglobin Auto test strip Ql (U) Negative Negative [facility] Urine leukocyte esterase det ection by automated test stripOrdered By: Gilson Ceja on 08-29-2022 Leukocyte esterase Auto test strip Ql (U) Negative Negative [facility] Urine protein/creatinine rat ioOrdered By: Gilson Ceja on 08-29-2022 Protein/Creatinine (U) [Ratio] 96 mg/g{Cre} 0-200 [facility] Urobilinogen Auto test strip (U) [Mass/Vol]Ordered By: Gilson Ceja on 08-29-2022 Urobilinogen (U) [Mass/Vol] Normal mg/dL Normal [facility] pH Auto test strip (U)Ordere d By: Gilson Ceja on 08-29-2022 pH (U) 6.5 [pH] 5.0-9.0 [facility] MAGNESIUM BLDon 12-17-2021 Magnesium [Mass/Vol] 2.3 mg/dL 1.7 - 2 .3 mg/dL [facility] Vital Signs Date Time Vital Sign Value Performing Clinician Facility 03-14-2025 14:13-0400 Body temperature 98.6 [degF] [facility] Work Phone: [facility] 03-14-2025 14:13-0400 Diastolic blood pressure 93 mm[Hg] [facility] Work Phone: [facility] 03-14-2025 14:13-0400 Heart rate 71 /min [facility] Work Phone: [facility] 03-14-2025 14:13-0400 Respiratory rate 18 /min [facility] Work Phone: [facility] 03-14-2025 14:13-0400 SaO2% (BldA) [Mass fraction] 98 % [facility] Work Phone: [facility] 03-14-2025 14:13-0400 Systolic blood pressure 164 mm[Hg] [facility] Work Phone: [facility] 03-13-2025 10:18-0400 Body temperature 98.5 [degF] Stephanie Aichholz Work Phone: [facility] 03-13-2025 10:18-0400 Body weight 80.28 kg Stephanie Aichholz Work Phone: [facility] 03-13-2025 10:18-0400 Diastolic blood pressure 88 mm[Hg] Stephanie Aichholz Work Phone: [facility] 03-13-2025 10:18-0400 Heart rate 62 /min Stephanie Aichholz Work Phone: [facility] 03-13-2025 10:18-0400 Respiratory rate 18 /min Stephanie Aichholz Work Phone: [facility] 03-13-2025 10:18-0400 SaO2% (BldA) [Mass fraction] 95 % Stephanie Aichholz Work Phone: [facility] 03-13-2025 10:18-0400 Systolic blood pressure 156 mm[Hg] Stephanie Aichholz Work Phone: [facility] 02-14-2025 14:13-0400 Body height 158.8 cm Jayden Connelly APRN.ROUTE SALES MANAGER Work Phone: [facility] 02-14-2025 14:13-0400 Body mass index (BMI) [Ratio] 31.49 kg/m2 Jayden Connelly APRN.ROUTE SALES MANAGER Work Phone: [facility] 02-14-2025 14:13-0400 Body temperature 97.39 [degF] Jayden Connelly APRN.ROUTE SALES MANAGER Work Phone: [facility] 02-14-2025 14:13-0400 Body weight 79.4 kg Jayden Connelly ELECTRIC MOTOR CONTROLS ASSEMBLER.ROUTE SALES MANAGER Work Phone: [facility] 02-14-2025 14:13-0400 Diastolic blood pressure 80 mm[Hg] Jayden Connelly ELECTRIC MOTOR CONTR[employer]S ASSEMBLER.ROUTE SALES MANAGER Work Phone: [facility] 02-14-2025 14:13-0400 Heart rate 82 /min Jayden Connelly ELECTRIC MOTOR CONTR[employer]S ASSEMBLER.ROUTE SALES MANAGER Work Phone: [facility] 02-14-2025 14:13-0400 Respiratory rate 16 /min Jayden Connelly ELECTRIC MOTOR CONTR[employer]S ASSEMBLER.ROUTE SALES MANAGER Work Phone: [facility] 02-14-2025 14:13-0400 SaO2% (BldA) [Mass fraction] 100 % Jayden Connelly ELECTRIC MOTOR CONTR[employer]S ASSEMBLER.ROUTE SALES MANAGER Work Phone: [facility] 02-14-2025 14:13-0400 Systolic blood pressure 136 mm[Hg] Jayden Connelly ELECTRIC MOTOR CONTR[employer]S ASSEMBLER.ROUTE SALES MANAGER Work Phone: [facility] 02-05-2025 15:51-0400 Body temperature 96.3 [degF] Susanna Graf MD Work Phone: [facility] 02-05-2025 15:51-0400 Diastolic blood pressure 69 mm[Hg] Susanna Graf MD Work Phone: [facility] 02-05-2025 15:51-0400 Heart rate 69 /min Susanna Graf MD Work Phone: [facility] 02-05-2025 15:51-0400 Respiratory rate 15 /min Susanna Graf MD Work Phone: [facility] 02-05-2025 15:51-0400 SaO2% (BldA) [Mass fraction] 95 % Susanna Graf MD Work Phone: [facility] 02-05-2025 15:51-0400 Systolic blood pressure 148 mm[Hg] Susanna Graf MD Work Phone: [facility] 02-05-2025 10:35-0400 Body height 160 cm Susanna Graf MD Work Phone: [facility] 02-05-2025 10:35-0400 Body mass index (BMI) [Ratio] 31.32 kg/m2 Susanna Graf MD Work Phone: [facility] 02-05-2025 10:35-0400 Body weight 80.2 kg Susanna Graf MD Work Phone: [facility] 01-31-2025 14:29-0400 Body temperature 98.49 [degF] [facility] Work Phone: [facility] 01-31-2025 14:29-0400 Diastolic blood pressure 82 mm[Hg] [facility] Work Phone: [facility] 01-31-2025 14:29-0400 Heart rate 64 /min [facility] Work Phone: [facility] 01-31-2025 14:29-0400 Respiratory rate 18 /min [facility] Work Phone: [facility] 01-31-2025 14:29-0400 SaO2% (BldA) [Mass fraction] 97 % [facility] Work Phone: [facility] 01-31-2025 14:29-0400 Systolic blood pressure 132 mm[Hg] [facility] Work Phone: [facility] 01-27-2025 13:49-0400 Body height 160.02 cm Stephanie Dumont Work Phone: [facility] 01-27-2025 13:49-0400 Body mass index (BMI) [Ratio] 31.5 kg/m2 Stephanie Dumont Work Phone: [facility] 01-27-2025 13:49-0400 Body weight 80.73 kg Stephanie Dumont Work Phone: [facility] 01-27-2025 13:49-0400 Diastolic blood pressure 82 mm[Hg] Stephanie Fordeholz Work Phone: [facility] 01-27-2025 13:49-0400 Heart rate 78 /min Stephanie Fordeholz Work Phone: [facility] 01-27-2025 13:49-0400 Respiratory rate 16 /min Stephanie Fordeholz Work Phone: [facility] 01-27-2025 13:49-0400 SaO2% (BldA) [Mass fraction] 97 % Stephanie Fordeholz Work Phone: [facility] 01-27-2025 13:49-0400 Systolic blood pressure 127 mm[Hg] Stephanie Fordeholz Work Phone: [facility] 01-17-2025 14:36-0400 Body temperature 98.2 [degF] [facility] Work Phone: [facility] 01-17-2025 14:36-0400 Diastolic blood pressure 84 mm[Hg] [facility] Work Phone: [facility] 01-17-2025 14:36-0400 Heart rate 67 /min [facility] Work Phone: [facility] 01-17-2025 14:36-0400 Respiratory rate 18 /min [facility] Work Phone: [facility] 01-17-2025 14:36-0400 SaO2% (BldA) [Mass fraction] 99 % [facility] Work Phone: [facility] 01-17-2025 14:36-0400 Systolic blood pressure 144 mm[Hg] [facility] Work Phone: [facility] 01-15-2025 14:15-0400 Body mass index (BMI) [Ratio] 30.96 kg/m2 Stephanie Fordeernestinaruben SEMICONDUCTOR EQUIPMENT TECHNICIAN Work Phone: [facility] 01-15-2025 14:15-0400 Body temperature 98.49 [degF] Stephanie Aichholz SEMICONDUCTOR EQUIPMENT TECHNICIAN Work Phone: [facility] 01-15-2025 14:15-0400 Body weight 79.29 kg Stephanie Aichholz SEMICONDUCTOR EQUIPMENT TECHNICIAN Work Phone: [facility] 01-15-2025 14:15-0400 Diastolic blood pressure 80 mm[Hg] Stephanie Aichholz SEMICONDUCTOR EQUIPMENT TECHNICIAN Work Phone: [facility] 01-15-2025 14:15-0400 Heart rate 87 /min Stephanie Aichholz SEMICONDUCTOR EQUIPMENT TECHNICIAN Work Phone: [facility] 01-15-2025 14:15-0400 Respiratory rate 18 /min Stephanie Aichholz SEMICONDUCTOR EQUIPMENT TECHNICIAN Work Phone: [facility] 01-15-2025 14:15-0400 SaO2% (BldA) [Mass fraction] 98 % Stephanie Aichholz SEMICONDUCTOR EQUIPMENT TECHNICIAN Work Phone: [facility] 01-15-2025 14:15-0400 Systolic blood pressure 144 mm[Hg] Stephanie Aichholz SEMICONDUCTOR EQUIPMENT TECHNICIAN Work Phone: [facility] 01-06-2025 11:37-0400 Body mass index (BMI) [Ratio] 31.35 kg/m2 Stephanie Aichholz SEMICONDUCTOR EQUIPMENT TECHNICIAN Work Phone: [facility] 01-06-2025 11:37-0400 Body temperature 98.49 [degF] Stephanie Aichholz SEMICONDUCTOR EQUIPMENT TECHNICIAN Work Phone: [facility] 01-06-2025 11:37-0400 Body weight 80.29 kg Stephanie Aichholz SEMICONDUCTOR EQUIPMENT TECHNICIAN Work Phone: [facility] 01-06-2025 11:37-0400 Diastolic blood pressure 70 mm[Hg] Stephanie Aichholz SEMICONDUCTOR EQUIPMENT TECHNICIAN Work Phone: [facility] 01-06-2025 11:37-0400 Heart rate 63 /min Stephanie Aichholz SEMICONDUCTOR EQUIPMENT TECHNICIAN Work Phone: [facility] 01-06-2025 11:37-0400 Respiratory rate 18 /min Stephanie Dumont SEMICONDUCTOR EQUIPMENT TECHNICIAN Work Phone: [facility] 01-06-2025 11:37-0400 SaO2% (BldA) [Mass fraction] 97 % Stephanie Dumont SEMICONDUCTOR EQUIPMENT TECHNICIAN Work Phone: [facility] 01-06-2025 11:37-0400 Systolic blood pressure 120 mm[Hg] Stephanie Dumont SEMICONDUCTOR EQUIPMENT TECHNICIAN Work Phone: [facility] 01-03-2025 13:58-0400 Body mass index (BMI) [Ratio] 31.72 kg/m2 Jayden Connelly APRN.ROUTE SALES MANAGER Work Phone: [facility] 01-03-2025 13:58-0400 Body temperature 97.59 [degF] Jayden Connelly APRN.ROUTE SALES MANAGER Work Phone: [facility] 01-03-2025 13:58-0400 Body weight 80 kg Jayden Connelly APRN.ROUTE SALES MANAGER Work Phone: [facility] 01-03-2025 13:58-0400 Diastolic blood pressure 73 mm[Hg] Jayden Connelly APRN.ROUTE SALES MANAGER Work Phone: [facility] 01-03-2025 13:58-0400 Heart rate 61 /min Jayden Connelly APRN.ROUTE SALES MANAGER Work Phone: [facility] 01-03-2025 13:58-0400 Respiratory rate 18 /min Jayden Connelly APRN.ROUTE SALES MANAGER Work Phone: [facility] 01-03-2025 13:58-0400 SaO2% (BldA) [Mass fraction] 98 % Jayden Connelly APRN.ROUTE SALES MANAGER Work Phone: [facility] 01-03-2025 13:58-0400 Systolic blood pressure 153 mm[Hg] Jayden Connelly APRN.ROUTE SALES MANAGER Work Phone: [facility] 12-25-2024 11:04-0400 Body mass index (BMI) [Ratio] 30.72 kg/m2 Stephanie Dumont SEMICONDUCTOR EQUIPMENT TECHNICIAN Work Phone: [facility] 12-25-2024 11:04-0400 Body temperature 98.71 [degF] Stephanie Dumont SEMICONDUCTOR EQUIPMENT TECHNICIAN Work Phone: [facility] 12-25-2024 11:04-0400 Body weight 78.65 kg Stephanie Dumont SEMICONDUCTOR EQUIPMENT TECHNICIAN Work Phone: [facility] 12-25-2024 11:04-0400 Diastolic blood pressure 58 mm[Hg] Stephanie Dumont SEMICONDUCTOR EQUIPMENT TECHNICIAN Work Phone: [facility] 12-25-2024 11:04-0400 Heart rate 73 /min Stephanie Dumont SEMICONDUCTOR EQUIPMENT TECHNICIAN Work Phone: [facility] 12-25-2024 11:04-0400 Respiratory rate 18 /min Stephanie Dumont SEMICONDUCTOR EQUIPMENT TECHNICIAN Work Phone: [facility] 12-25-2024 11:04-0400 SaO2% (BldA) [Mass fraction] 97 % Stephanie Dumont SEMICONDUCTOR EQUIPMENT TECHNICIAN Work Phone: [facility] 12-25-2024 11:04-0400 Systolic blood pressure 96 mm[Hg] Stephanie Dumont SEMICONDUCTOR EQUIPMENT TECHNICIAN Work Phone: [facility] 12-20-2024 13:42-0400 Body temperature 97.7 [degF] [facility] Work Phone: [facility] 12-20-2024 13:42-0400 Diastolic blood pressure 72 mm[Hg] [facility] Work Phone: [facility] 12-20-2024 13:42-0400 Heart rate 77 /min [facility] Work Phone: [facility] 12-20-2024 13:42-0400 Respiratory rate 18 /min [facility] Work Phone: [facility] 12-20-2024 13:42-0400 SaO2% (BldA) [Mass fraction] 99 % [facility] Work Phone: [facility] 12-20-2024 13:42-0400 Systolic blood pressure 116 mm[Hg] [facility] Work Phone: [facility] 2024 13:40-0400 Body temperature 98.1 [degF] [facility] Work Phone: [facility] 2024 13:40-0400 Diastolic blood pressure 83 mm[Hg] [facility] Work Phone: [facility] 2024 13:40-0400 Heart rate 67 /min [facility] Work Phone: [facility] 2024 13:40-0400 Respiratory rate 18 /min [facility] Work Phone: [facility] 2024 13:40-0400 SaO2% (BldA) [Mass fraction] 98 % [facility] Work Phone: [facility] 2024 13:40-0400 Systolic blood pressure 136 mm[Hg] [facility] Work Phone: [facility] 11-26-2024 15:28-0400 Body mass index (BMI) [Ratio] 34.19 kg/m2 Susanna Graf MD Work Phone: [facility] 11-26-2024 15:28-0400 Body weight 87.54 kg Susanna Graf MD Work Phone: [facility] 11-22-2024 13:57-0400 Body mass index (BMI) [Ratio] 32.44 kg/m2 Rinku Ramsey MD Work Phone: [facility] 11-22-2024 13:57-0400 Body temperature 97.11 [degF] Rinku Ramsey MD Work Phone: [facility] 11-22-2024 13:57-0400 Body weight 81.8 kg Rinku Ramsey MD Work Phone: [facility] 11-22-2024 13:57-0400 Diastolic blood pressure 81 mm[Hg] Rinku Ramsey MD Work Phone: [facility] 11-22-2024 13:57-0400 Heart rate 78 /min Rinku Ramsey MD Work Phone: [facility] 11-22-2024 13:57-0400 Respiratory rate 18 /min Rinku Ramsey MD Work Phone: [facility] 11-22-2024 13:57-0400 SaO2% (BldA) [Mass fraction] 97 % Rinku Ramsey MD Work Phone: [facility] 11-22-2024 13:57-0400 Systolic blood pressure 125 mm[Hg] Rinku Ramsey MD Work Phone: [facility] 10-11-2024 10:08-0400 Body mass index (BMI) [Ratio] 32.32 kg/m2 Li Hong ELECTRIC MOTOR CONTROLS ASSEMBLER.ROUTE SALES MANAGER Work Phone: [facility] 10-11-2024 10:08-0400 Body temperature 97.81 [degF] Li Hong ELECTRIC MOTOR CONTROLS ASSEMBLER.ROUTE SALES MANAGER Work Phone: [facility] 10-11-2024 10:08-0400 Body weight 81.5 kg Li Hong ELECTRIC MOTOR CONTROLS ASSEMBLER.ROUTE SALES MANAGER Work Phone: [facility] 10-11-2024 10:08-0400 Diastolic blood pressure 84 mm[Hg] Li Hong ELECTRIC MOTOR CONTROLS ASSEMBLER.ROUTE SALES MANAGER Work Phone: [facility] 10-11-2024 10:08-0400 Heart rate 79 /min Li Hong ELECTRIC MOTOR CONTROLS ASSEMBLER.ROUTE SALES MANAGER Work Phone: [facility] 10-11-2024 10:08-0400 Respiratory rate 16 /min Li Hong ELECTRIC MOTOR CONTROLS ASSEMBLER.ROUTE SALES MANAGER Work Phone: [facility] 10-11-2024 10:08-0400 SaO2% (BldA) [Mass fraction] 99 % Li Hong ELECTRIC MOTOR CONTROLS ASSEMBLER.ROUTE SALES MANAGER Work Phone: [facility] 10-11-2024 10:08-0400 Systolic blood pressure 153 mm[Hg] Li Hong ELECTRIC MOTOR CONTROLS ASSEMBLER.ROUTE SALES MANAGER Work Phone: [facility] 08-30-2024 10:48-0500 Body mass index (BMI) [Ratio] 32.79 kg/m2 Li Hong ELECTRIC MOTOR CONTROLS ASSEMBLER.ROUTE SALES MANAGER Work Phone: [facility] 08-30-2024 10:48-0500 Body temperature 97.5 [degF] Li Hong ELECTRIC MOTOR CONTROLS ASSEMBLER.ROUTE SALES MANAGER Work Phone: [facility] 08-30-2024 10:48-0500 Body weight 82.7 kg Li Hong ELECTRIC MOTOR CONTROLS ASSEMBLER.ROUTE SALES MANAGER Work Phone: [facility] 08-30-2024 10:48-0500 Diastolic blood pressure 76 mm[Hg] Li Hong ELECTRIC MOTOR CONTROLS ASSEMBLER.ROUTE SALES MANAGER Work Phone: [facility] 08-30-2024 10:48-0500 Heart rate 75 /min Li Hong ELECTRIC MOTOR CONTROLS ASSEMBLER.ROUTE SALES MANAGER Work Phone: [facility] 08-30-2024 10:48-0500 Respiratory rate 18 /min Li Hong ELECTRIC MOTOR CONTROLS ASSEMBLER.ROUTE SALES MANAGER Work Phone: [facility] 08-30-2024 10:48-0500 SaO2% (BldA) [Mass fraction] 98 % Li Hong ELECTRIC MOTOR CONTROLS ASSEMBLER.ROUTE SALES MANAGER Work Phone: [facility] 08-30-2024 10:48-0500 Systolic blood pressure 114 mm[Hg] Li Hong ELECTRIC MOTOR CONTROLS ASSEMBLER.ROUTE SALES MANAGER Work Phone: [facility] 08-21-2024 13:17-0500 Body height 160.02 cm [facility] 08-21-2024 13:17-0500 Body mass index (BMI) [Ratio] 32.2 kg/m2 [facility] 08-21-2024 13:17-0500 Body temperature 96.2 [degF] [facility] 08-21-2024 13:17-0500 Body weight 82.55 kg [facility] 08-21-2024 13:17-0500 Diastolic blood pressure 70 mm[Hg] [facility] 08-21-2024 13:17-0500 Heart rate 85 /min [facility] 08-21-2024 13:17-0500 Respiratory rate 18 /min [facility] 08-21-2024 13:17-0500 SaO2% (BldA) [Mass fraction] 98 % [facility] 08-21-2024 13:17-0500 Systolic blood pressure 121 mm[Hg] [facility] 08-15-2024 10:46-0500 Body height 160 cm Stephanie Tim SEMICONDUCTOR EQUIPMENT TECHNICIAN Work Phone: [facility] 08-15-2024 10:46-0500 Body mass index (BMI) [Ratio] 32.38 kg/m2 Stephanie Anilz SEMICONDUCTOR EQUIPMENT TECHNICIAN Work Phone: [facility] 08-15-2024 10:46-0500 Body temperature 98.71 [degF] Stephanie Maurisioholz SEMICONDUCTOR EQUIPMENT TECHNICIAN Work Phone: [facility] 08-15-2024 10:46-0500 Body weight 82.92 kg Stephanie Anilz SEMICONDUCTOR EQUIPMENT TECHNICIAN Work Phone: [facility] 08-15-2024 10:46-0500 Diastolic blood pressure 78 mm[Hg] Stephanie Maurisioholz SEMICONDUCTOR EQUIPMENT TECHNICIAN Work Phone: [facility] 08-15-2024 10:46-0500 Heart rate 65 /min Stephanie Aichholz SEMICONDUCTOR EQUIPMENT TECHNICIAN Work Phone: [facility] 08-15-2024 10:46-0500 Respiratory rate 19 /min Stephanie Aichholz SEMICONDUCTOR EQUIPMENT TECHNICIAN Work Phone: [facility] 08-15-2024 10:46-0500 SaO2% (BldA) [Mass fraction] 99 % Stephanie Tim SEMICONDUCTOR EQUIPMENT TECHNICIAN Work Phone: [facility] 08-15-2024 10:46-0500 Systolic blood pressure 140 mm[Hg] Stephanie Tim SEMICONDUCTOR EQUIPMENT TECHNICIAN Work Phone: [facility] 07-11-2024 10:52-0500 Body height 158.8 cm Li Hong ELECTRIC MOTOR CONTROLS ASSEMBLER.ROUTE SALES MANAGER Work Phone: [facility] 07-11-2024 10:52-0500 Body mass index (BMI) [Ratio] 33.55 kg/m2 Li Hong ELECTRIC MOTOR CONTROLS ASSEMBLER.ROUTE SALES MANAGER Work Phone: [facility] 07-11-2024 10:52-0500 Body temperature 97.59 [degF] Li Hong ELECTRIC MOTOR CONTROLS ASSEMBLER.ROUTE SALES MANAGER Work Phone: [facility] 07-11-2024 10:52-0500 Body weight 84.6 kg Li Hong ELECTRIC MOTOR CONTROLS ASSEMBLER.ROUTE SALES MANAGER Work Phone: [facility] 07-11-2024 10:52-0500 Diastolic blood pressure 83 mm[Hg] Li Hong ELECTRIC MOTOR CONTROLS ASSEMBLER.ROUTE SALES MANAGER Work Phone: [facility] 07-11-2024 10:52-0500 Heart rate 77 /min Li Hong ELECTRIC MOTOR CONTROLS ASSEMBLER.ROUTE SALES MANAGER Work Phone: [facility] 07-11-2024 10:52-0500 Respiratory rate 18 /min Li Hong ELECTRIC MOTOR CONTROLS ASSEMBLER.ROUTE SALES MANAGER Work Phone: [facility] 07-11-2024 10:52-0500 SaO2% (BldA) [Mass fraction] 97 % Li Hong ELECTRIC MOTOR CONTROLS ASSEMBLER.ROUTE SALES MANAGER Work Phone: [facility] 07-11-2024 10:52-0500 Systolic blood pressure 136 mm[Hg] Li Hong ELECTRIC MOTOR CONTROLS ASSEMBLER.ROUTE SALES MANAGER Work Phone: [facility] 05-30-2024 10:29-0500 Body height 158.8 cm Rinku Ramsey MD Work Phone: [facility] 05-30-2024 10:29-0500 Body mass index (BMI) [Ratio] 33.03 kg/m2 Rinku Ramsey MD Work Phone: [facility] 05-30-2024 10:29-0500 Body temperature 97.2 [degF] Rinku Ramsey MD Work Phone: [facility] 05-30-2024 10:29-0500 Body weight 83.3 kg Rinku Ramsey MD Work Phone: [facility] 05-30-2024 10:29-0500 Diastolic blood pressure 80 mm[Hg] Rinku Ramsey MD Work Phone: [facility] 05-30-2024 10:29-0500 Heart rate 71 /min Rinku Ramsey MD Work Phone: [facility] 05-30-2024 10:29-0500 Respiratory rate 16 /min Rinku Ramsey MD Work Phone: [facility] 05-30-2024 10:29-0500 SaO2% (BldA) [Mass fraction] 97 % Rinku Ramsey MD Work Phone: [facility] 05-30-2024 10:29-0500 Systolic blood pressure 145 mm[Hg] Rinku Ramsey MD Work Phone: [facility] 05-15-2024 14:15-0500 Body height 160 cm Mar Mayo MD Work Phone: [facility] 05-15-2024 14:15-0500 Body mass index (BMI) [Ratio] 32.77 kg/m2 Mar Mayo MD Work Phone: [facility] 05-15-2024 14:15-0500 Body weight 83.92 kg Mar Mayo MD Work Phone: [facility] 05-15-2024 14:15-0500 Diastolic blood pressure 64 mm[Hg] Mar Mayo MD Work Phone: [facility] 05-15-2024 14:15-0500 Systolic blood pressure 109 mm[Hg] Mar Mayo MD Work Phone: [facility] 05-14-2024 10:32-0500 Body height 160 cm Stephanie Anilz SEMICONDUCTOR EQUIPMENT TECHNICIAN Work Phone: [facility] 05-14-2024 10:32-0500 Body mass index (BMI) [Ratio] 33.13 kg/m2 Stephanie Aichholz SEMICONDUCTOR EQUIPMENT TECHNICIAN Work Phone: [facility] 05-14-2024 10:32-0500 Body temperature 98.71 [degF] Stephanie Aichholz SEMICONDUCTOR EQUIPMENT TECHNICIAN Work Phone: [facility] 05-14-2024 10:32-0500 Body weight 84.82 kg Stephanie Aichholz SEMICONDUCTOR EQUIPMENT TECHNICIAN Work Phone: [facility] 05-14-2024 10:32-0500 Diastolic blood pressure 70 mm[Hg] Stephanie Aichholz SEMICONDUCTOR EQUIPMENT TECHNICIAN Work Phone: [facility] 05-14-2024 10:32-0500 Heart rate 75 /min Stephanie Aichholz SEMICONDUCTOR EQUIPMENT TECHNICIAN Work Phone: [facility] 05-14-2024 10:32-0500 Respiratory rate 19 /min Stephanie Aichholz SEMICONDUCTOR EQUIPMENT TECHNICIAN Work Phone: [facility] 05-14-2024 10:32-0500 SaO2% (BldA) [Mass fraction] 97 % Stephanie Aichholz SEMICONDUCTOR EQUIPMENT TECHNICIAN Work Phone: [facility] 05-14-2024 10:32-0500 Systolic blood pressure 116 mm[Hg] Stephanie Aichholz SEMICONDUCTOR EQUIPMENT TECHNICIAN Work Phone: [facility] 04-24-2024 11:08-0400 Body height 160 cm Stephanie Aichholz SEMICONDUCTOR EQUIPMENT TECHNICIAN Work Phone: [facility] 04-24-2024 11:08-0400 Body mass index (BMI) [Ratio] 32.38 kg/m2 Stephanie Aichholz SEMICONDUCTOR EQUIPMENT TECHNICIAN Work Phone: [facility] 04-24-2024 11:08-0400 Body temperature 98.49 [degF] Stephanie Forderichi SEMICONDUCTOR EQUIPMENT TECHNICIAN Work Phone: [facility] 04-24-2024 11:08-0400 Body weight 82.92 kg Stephanie Forderichi SEMICONDUCTOR EQUIPMENT TECHNICIAN Work Phone: [facility] 04-24-2024 11:08-0400 Diastolic blood pressure 72 mm[Hg] Stephanie Forderichi SEMICONDUCTOR EQUIPMENT TECHNICIAN Work Phone: [facility] 04-24-2024 11:08-0400 Heart rate 74 /min Stephanie Bowensradames SEMICONDUCTOR EQUIPMENT TECHNICIAN Work Phone: [facility] 04-24-2024 11:08-0400 Respiratory rate 19 /min Stephanie Forderichi SEMICONDUCTOR EQUIPMENT TECHNICIAN Work Phone: [facility] 04-24-2024 11:08-0400 SaO2% (BldA) [Mass fraction] 100 % Stephanie Forderichi SEMICONDUCTOR EQUIPMENT TECHNICIAN Work Phone: [facility] 04-24-2024 11:08-0400 Systolic blood pressure 138 mm[Hg] Stephanie Forderichi SEMICONDUCTOR EQUIPMENT TECHNICIAN Work Phone: [facility] 04-18-2024 11:02-0400 Body height 158.8 cm Rinku Ramsey MD Work Phone: [facility] 04-18-2024 11:02-0400 Body mass index (BMI) [Ratio] 34.72 kg/m2 Rinku Ramsey MD Work Phone: [facility] 04-18-2024 11:02-0400 Body temperature 97.59 [degF] Rinku Ramsey MD Work Phone: [facility] 04-18-2024 11:02-0400 Body weight 87.54 kg Rinku Ramsey MD Work Phone: [facility] 04-18-2024 11:02-0400 Diastolic blood pressure 81 mm[Hg] Rinku Ramsey MD Work Phone: [facility] 04-18-2024 11:02-0400 Heart rate 74 /min Rinku Ramsey MD Work Phone: [facility] 04-18-2024 11:02-0400 Respiratory rate 16 /min Rinku Ramsey MD Work Phone: [facility] 04-18-2024 11:02-0400 SaO2% (BldA) [Mass fraction] 97 % Rinku Ramsey MD Work Phone: [facility] 04-18-2024 11:02-0400 Systolic blood pressure 136 mm[Hg] Rinku Ramsey MD Work Phone: [facility] 04-09-2024 10:15-0400 Body height 160 cm Blaise GONZALEZ Work Phone: [facility] 04-09-2024 10:15-0400 Body mass index (BMI) [Ratio] 32.59 kg/m2 Blaise Alex PA Work Phone: [facility] 04-09-2024 10:15-0400 Body weight 83.46 kg Blaise Alex PA Work Phone: [facility] 04-04-2024 09:47-0400 Body height 160 cm Stephanie Dumont SEMICONDUCTOR EQUIPMENT TECHNICIAN Work Phone: [facility] 04-04-2024 09:47-0400 Body mass index (BMI) [Ratio] 32.7 kg/m2 Stephanie Dumont SEMICONDUCTOR EQUIPMENT TECHNICIAN Work Phone: [facility] 04-04-2024 09:47-0400 Body temperature 98.29 [degF] Stephanie Dumont SEMICONDUCTOR EQUIPMENT TECHNICIAN Work Phone: [facility] 04-04-2024 09:47-0400 Body weight 83.73 kg Stephanie Dumont SEMICONDUCTOR EQUIPMENT TECHNICIAN Work Phone: [facility] 04-04-2024 09:47-0400 Diastolic blood pressure 80 mm[Hg] Stephanie Dumont SEMICONDUCTOR EQUIPMENT TECHNICIAN Work Phone: [facility] 04-04-2024 09:47-0400 Heart rate 72 /min Stephanie Forderichi SEMICONDUCTOR EQUIPMENT TECHNICIAN Work Phone: [facility] 04-04-2024 09:47-0400 Respiratory rate 19 /min Stephanie Forderichi SEMICONDUCTOR EQUIPMENT TECHNICIAN Work Phone: [facility] 04-04-2024 09:47-0400 SaO2% (BldA) [Mass fraction] 98 % Stephanie Forderichi SEMICONDUCTOR EQUIPMENT TECHNICIAN Work Phone: [facility] 04-04-2024 09:47-0400 Systolic blood pressure 112 mm[Hg] Stephanie Forderichi SEMICONDUCTOR EQUIPMENT TECHNICIAN Work Phone: [facility] 03-05-2024 10:56-0400 Body height 158.8 cm Rinku Ramsey MD Work Phone: [facility] 03-05-2024 10:56-0400 Body mass index (BMI) [Ratio] 34.66 kg/m2 Rinku Ramsey MD Work Phone: [facility] 03-05-2024 10:56-0400 Body temperature 97.7 [degF] Rinku Ramsey MD Work Phone: [facility] 03-05-2024 10:56-0400 Body weight 87.4 kg Rinku Ramsey MD Work Phone: [facility] 03-05-2024 10:56-0400 Diastolic blood pressure 72 mm[Hg] Rinku Ramsey MD Work Phone: [facility] 03-05-2024 10:56-0400 Heart rate 74 /min Rinku Ramsey MD Work Phone: [facility] 03-05-2024 10:56-0400 Respiratory rate 16 /min Rinku Ramsey MD Work Phone: [facility] 03-05-2024 10:56-0400 SaO2% (BldA) [Mass fraction] 98 % Rinku Ramsey MD Work Phone: [facility] 03-05-2024 10:56-0400 Systolic blood pressure 128 mm[Hg] Rinku Ramsey MD Work Phone: [facility] 03-04-2024 10:27-0400 Body mass index (BMI) [Ratio] 34.19 kg/m2 Stephanie Bowensradames SEMICONDUCTOR EQUIPMENT TECHNICIAN Work Phone: [facility] 03-04-2024 10:27-0400 Body temperature 97.2 [degF] Stephanie Forderichi SEMICONDUCTOR EQUIPMENT TECHNICIAN Work Phone: [facility] 03-04-2024 10:27-0400 Body weight 87.54 kg Stephanie Forderichi SEMICONDUCTOR EQUIPMENT TECHNICIAN Work Phone: [facility] 03-04-2024 10:27-0400 Diastolic blood pressure 64 mm[Hg] Stephanie Forderichi SEMICONDUCTOR EQUIPMENT TECHNICIAN Work Phone: [facility] 03-04-2024 10:27-0400 Heart rate 80 /min Stephanie Maz SEMICONDUCTOR EQUIPMENT TECHNICIAN Work Phone: [facility] 03-04-2024 10:27-0400 SaO2% (BldA) [Mass fraction] 98 % Stephanie Fordeernestinaz SEMICONDUCTOR EQUIPMENT TECHNICIAN Work Phone: [facility] 03-04-2024 10:27-0400 Systolic blood pressure 138 mm[Hg] Stephanie Forderichi SEMICONDUCTOR EQUIPMENT TECHNICIAN Work Phone: [facility] 02-02-2024 13:21-0400 Body height 158.8 cm Rinku Ramsey MD Work Phone: [facility] 02-02-2024 13:21-0400 Body mass index (BMI) [Ratio] 34.54 kg/m2 Rinku Ramsey MD Work Phone: [facility] 02-02-2024 13:21-0400 Body temperature 97.7 [degF] Rinku Ramsey MD Work Phone: [facility] 02-02-2024 13:21-0400 Body weight 87.1 kg Rinku Ramsey MD Work Phone: [facility] 02-02-2024 13:21-0400 Diastolic blood pressure 68 mm[Hg] Rinku Ramsey MD Work Phone: [facility] 02-02-2024 13:21-0400 Heart rate 76 /min Rinku Ramsey MD Work Phone: [facility] 02-02-2024 13:21-0400 Respiratory rate 16 /min Rinku Ramsey MD Work Phone: [facility] 02-02-2024 13:21-0400 SaO2% (BldA) [Mass fraction] 100 % Rinku Ramsey MD Work Phone: [facility] 02-02-2024 13:21-0400 Systolic blood pressure 142 mm[Hg] Rinku Ramsey MD Work Phone: [facility] 12-18-2023 14:20-0400 Body temperature 97.2 [degF] Susanna Graf MD Work Phone: [facility] 12-18-2023 14:20-0400 Diastolic blood pressure 57 mm[Hg] Susanna Graf MD Work Phone: [facility] 12-18-2023 14:20-0400 Heart rate 79 /min Susanna Graf MD Work Phone: [facility] 12-18-2023 14:20-0400 Respiratory rate 19 /min Susanna Graf MD Work Phone: [facility] 12-18-2023 14:20-0400 SaO2% (BldA) [Mass fraction] 96 % Susanna Graf MD Work Phone: [facility] 12-18-2023 14:20-0400 Systolic blood pressure 131 mm[Hg] Susanna Graf MD Work Phone: [facility] 12-18-2023 06:28-0400 Body height 160 cm Susanna Graf MD Work Phone: [facility] 12-18-2023 06:28-0400 Body mass index (BMI) [Ratio] 33.94 kg/m2 Susanna Graf MD Work Phone: [facility] 12-18-2023 06:28-0400 Body weight 86.9 kg Susanna Graf MD Work Phone: [facility] 11-24-2023 10:59-0400 Body height 158.8 cm Rinku Ramsey MD Work Phone: [facility] 11-24-2023 10:59-0400 Body mass index (BMI) [Ratio] 34.78 kg/m2 Rinku Ramsey MD Work Phone: [facility] 11-24-2023 10:59-0400 Body temperature 97.7 [degF] Rinku Ramsey MD Work Phone: [facility] 11-24-2023 10:59-0400 Body weight 87.7 kg Rinku Ramsey MD Work Phone: [facility] 11-24-2023 10:59-0400 Diastolic blood pressure 84 mm[Hg] Rinku Ramsey MD Work Phone: [facility] 11-24-2023 10:59-0400 Heart rate 68 /min Rinku Ramsey MD Work Phone: [facility] 11-24-2023 10:59-0400 Respiratory rate 16 /min Rinku Ramsey MD Work Phone: [facility] 11-24-2023 10:59-0400 SaO2% (BldA) [Mass fraction] 100 % Rinku Ramsey MD Work Phone: [facility] 11-24-2023 10:59-0400 Systolic blood pressure 152 mm[Hg] Rinku Ramsey MD Work Phone: [facility] 11-14-2023 12:52-0400 Body height 160 cm Susanna Graf MD Work Phone: [facility] 11-14-2023 12:52-0400 Body mass index (BMI) [Ratio] 34.28 kg/m2 Susanna Graf MD Work Phone: [facility] 11-14-2023 12:52-0400 Body temperature 97.11 [degF] Susanna Graf MD Work Phone: [facility] 11-14-2023 12:52-0400 Body weight 87.77 kg Susanna Graf MD Work Phone: [facility] 10-13-2023 13:11-0400 Body height 158.8 cm Ana Mary PA-C Work Phone: [facility] 10-13-2023 13:11-0400 Body temperature 97.59 [degF] Ana Mary PA-C Work Phone: [facility] 10-13-2023 13:11-0400 Body weight 87 kg Ana Mary PA-C Work Phone: [facility] 10-13-2023 13:11-0400 Diastolic blood pressure 84 mm[Hg] Ana Mary PA-C Work Phone: [facility] 10-13-2023 13:11-0400 Heart rate 68 /min Ana Mary PA-C Work Phone: [facility] 10-13-2023 13:11-0400 Respiratory rate 18 /min Ana Mary PA-C Work Phone: [facility] 10-13-2023 13:11-0400 SaO2% (BldA) [Mass fraction] 98 % Ana Mary PA-C Work Phone: [facility] 10-13-2023 13:11-0400 Systolic blood pressure 152 mm[Hg] Ana Mary PA-C Work Phone: [facility] 08-28-2023 14:37-0500 Body temperature 97.59 [degF] Rinku Ramsey MD Work Phone: [facility] 08-28-2023 14:37-0500 Body weight 87.3 kg Rinku Ramsey MD Work Phone: [facility] 08-28-2023 14:37-0500 Diastolic blood pressure 78 mm[Hg] Rinku Ramsey MD Work Phone: [facility] 08-28-2023 14:37-0500 Heart rate 85 /min Rinku Ramsey MD Work Phone: [facility] 08-28-2023 14:37-0500 Respiratory rate 16 /min Rinku Ramsey MD Work Phone: [facility] 08-28-2023 14:37-0500 SaO2% (BldA) [Mass fraction] 97 % Rinku Ramsey MD Work Phone: [facility] 08-28-2023 14:37-0500 Systolic blood pressure 132 mm[Hg] Rinku Ramsey MD Work Phone: [facility] 08-23-2023 10:10-0500 Body height 160 cm Mar Mayo MD Work Phone: [facility] 08-23-2023 10:10-0500 Body mass index (BMI) [Ratio] 33.66 kg/m2 Mar Mayo MD Work Phone: [facility] 08-23-2023 10:10-0500 Body weight 86.18 kg Mar Mayo MD Work Phone: [facility] 08-23-2023 10:10-0500 Diastolic blood pressure 68 mm[Hg] Mar Mayo MD Work Phone: [facility] 08-23-2023 10:10-0500 Systolic blood pressure 133 mm[Hg] Mar Mayo MD Work Phone: [facility] 06-28-2023 10:20-0500 Body height 160.02 cm Gilson Zeinab Other [employer] Other 06-28-2023 10:20-0500 Body mass index (BMI) [Ratio] 34.04 kg/m2 Gilson Zeinab Other [employer] Other 06-28-2023 10:20-0500 Body temperature 96.7 [degF] Gilson Zeinab Other [employer] Other 06-28-2023 10:20-0500 Body weight 87.18 kg Gilson Zeinab Other [employer] Other 06-28-2023 10:20-0500 Diastolic blood pressure 59 mm[Hg] Gilson Zeinab Other [employer] Other 06-28-2023 10:20-0500 Respiratory rate 18 /min Gilson Zeinab Other [employer] Other 06-28-2023 10:20-0500 SaO2% (BldA) [Mass fraction] 96 % Gilson Zeinab Other [employer] Other 06-28-2023 10:20-0500 Systolic blood pressure 117 mm[Hg] Gilson Zeinab Other [employer] Other 06-05-2023 10:08-0500 Body height 158.8 cm Ana Hernandez PA-C Work Phone: [facility] 06-05-2023 10:08-0500 Body temperature 97 [degF] Ana Hernandez PA-C Work Phone: [facility] 06-05-2023 10:08-0500 Body weight 87.27 kg Ana Mary PA-C Work Phone: [facility] 06-05-2023 10:08-0500 Diastolic blood pressure 84 mm[Hg] Ana Mary PA-C Work Phone: [facility] 06-05-2023 10:08-0500 Heart rate 76 /min Ana Mary PA-C Work Phone: [facility] 06-05-2023 10:08-0500 Respiratory rate 16 /min Ana Mary PA-C Work Phone: [facility] 06-05-2023 10:08-0500 SaO2% (BldA) [Mass fraction] 97 % Ana Mary PA-C Work Phone: [facility] 06-05-2023 10:08-0500 Systolic blood pressure 152 mm[Hg] Ana Mary PA-C Work Phone: [facility] 04-20-2023 10:11-0400 Body height 158.8 cm Rinku Ramsey MD Work Phone: [facility] 04-20-2023 10:11-0400 Body temperature 97.81 [degF] Rinku Ramsey MD Work Phone: [facility] 04-20-2023 10:11-0400 Body weight 89 kg Rinku Ramsey MD Work Phone: [facility] 04-20-2023 10:11-0400 Diastolic blood pressure 87 mm[Hg] Rinku aRmsey MD Work Phone: [facility] 04-20-2023 10:11-0400 Heart rate 72 /min Rinku Ramsey MD Work Phone: [facility] 04-20-2023 10:11-0400 Respiratory rate 18 /min Rinku Ramsey MD Work Phone: [facility] 04-20-2023 10:11-0400 SaO2% (BldA) [Mass fraction] 98 % Rinku Ramsey MD Work Phone: [facility] 04-20-2023 10:11-0400 Systolic blood pressure 168 mm[Hg] Rinku Ramsey MD Work Phone: [facility] 03-09-2023 14:03-0400 Body height 158.8 cm Rinku Ramsey MD Work Phone: [facility] 03-09-2023 14:03-0400 Body temperature 97.59 [degF] Rinku Ramsey MD Work Phone: [facility] 03-09-2023 14:03-0400 Body weight 88.27 kg Rinku Ramsey MD Work Phone: [facility] 03-09-2023 14:03-0400 Diastolic blood pressure 76 mm[Hg] Rinku Ramsey MD Work Phone: [facility] 03-09-2023 14:03-0400 Heart rate 71 /min Rinku Ramsey MD Work Phone: [facility] 03-09-2023 14:03-0400 Respiratory rate 16 /min Rinku Ramsey MD Work Phone: [facility] 03-09-2023 14:03-0400 SaO2% (BldA) [Mass fraction] 95 % Rinku Ramsey MD Work Phone: [facility] 03-09-2023 14:03-0400 Systolic blood pressure 143 mm[Hg] Rinku Ramsey MD Work Phone: [facility] 01-26-2023 14:48-0400 Body height 158.8 cm Rinuk Ramsey MD Work Phone: [facility] 01-26-2023 14:48-0400 Body temperature 97.59 [degF] Rinku Ramsey MD Work Phone: [facility] 01-26-2023 14:48-0400 Body weight 89.09 kg Rinku Ramsey MD Work Phone: [facility] 01-26-2023 14:48-0400 Diastolic blood pressure 77 mm[Hg] Rinku Ramsey MD Work Phone: [facility] 01-26-2023 14:48-0400 Heart rate 75 /min Rinku Ramsey MD Work Phone: [facility] 01-26-2023 14:48-0400 Respiratory rate 18 /min Rinku Ramsey MD Work Phone: [facility] 01-26-2023 14:48-0400 SaO2% (BldA) [Mass fraction] 98 % Rinku Ramsey MD Work Phone: [facility] 01-26-2023 14:48-0400 Systolic blood pressure 147 mm[Hg] Rinku Ramsey MD Work Phone: [facility] 12-15-2022 13:52-0400 Body height 158.8 cm Rinku Ramsey MD Work Phone: [facility] 12-15-2022 13:52-0400 Body temperature 97.5 [degF] Rinku Ramsey MD Work Phone: [facility] 12-15-2022 13:52-0400 Body weight 87.36 kg Rinku Ramsey MD Work Phone: [facility] 12-15-2022 13:52-0400 Diastolic blood pressure 8 mm[Hg] Rinku Ramsey MD Work Phone: [facility] 12-15-2022 13:52-0400 Heart rate 64 /min Rinku Ramsey MD Work Phone: [facility] 12-15-2022 13:52-0400 Respiratory rate 16 /min Rinku Ramsey MD Work Phone: [facility] 12-15-2022 13:52-0400 SaO2% (BldA) [Mass fraction] 96 % Rinku Ramsey MD Work Phone: [facility] 12-15-2022 13:52-0400 Systolic blood pressure 152 mm[Hg] Rinku Ramsey MD Work Phone: [facility] 10-27-2022 14:56-0400 Body height 158.8 cm Rinku Ramsey MD Work Phone: [facility] 10-27-2022 14:56-0400 Body temperature 97.39 [degF] Rinku Ramsey MD Work Phone: [facility] 10-27-2022 14:56-0400 Body weight 87.36 kg Rinku Ramsey MD Work Phone: [facility] 10-27-2022 14:56-0400 Diastolic blood pressure 84 mm[Hg] Rinku Ramsey MD Work Phone: [facility] 10-27-2022 14:56-0400 Heart rate 71 /min Rinku Ramsey MD Work Phone: [facility] 10-27-2022 14:56-0400 Respiratory rate 18 /min Rinku Ramsey MD Work Phone: [facility] 10-27-2022 14:56-0400 SaO2% (BldA) [Mass fraction] 98 % Rinku Ramsey MD Work Phone: [facility] 10-27-2022 14:56-0400 Systolic blood pressure 164 mm[Hg] Rinku Ramsey MD Work Phone: [facility] 09-15-2022 15:20-0500 Body height 158.8 cm Rinku Ramsey MD Work Phone: [facility] 09-15-2022 15:20-0500 Body temperature 97.11 [degF] Rinku Ramsey MD Work Phone: [facility] 09-15-2022 15:20-0500 Body weight 86.36 kg Rinku Ramsey MD Work Phone: [facility] 09-15-2022 15:20-0500 Diastolic blood pressure 89 mm[Hg] Rinku Ramsey MD Work Phone: [facility] 09-15-2022 15:20-0500 Heart rate 75 /min Rinku Ramsey MD Work Phone: [facility] 09-15-2022 15:20-0500 Respiratory rate 16 /min Rinku Ramsey MD Work Phone: [facility] 09-15-2022 15:20-0500 SaO2% (BldA) [Mass fraction] 97 % Rinku Ramsey MD Work Phone: [facility] 09-15-2022 15:20-0500 Systolic blood pressure 158 mm[Hg] Rinku Ramsey MD Work Phone: [facility] 09-07-2022 10:20-0500 Body height 160.02 cm Gilson Zeinab Other [employer] Other 09-07-2022 10:20-0500 Body mass index (BMI) [Ratio] 33.69 kg/m2 Gilson Zeinab Other [employer] Other 09-07-2022 10:20-0500 Body temperature 96.4 [degF] Gilson Zeinab Other [employer] Other 09-07-2022 10:20-0500 Body weight 86.27 kg Gilson Zeinab Other [employer] Other 09-07-2022 10:20-0500 Diastolic blood pressure 99 mm[Hg] Gilson Zeinab Other [employer] Other 09-07-2022 10:20-0500 Respiratory rate 18 /min Gilson Zeinab Other [employer] Other 09-07-2022 10:20-0500 SaO2% (BldA) [Mass fraction] 98 % Gilson Zeinab Other [employer] Other 09-07-2022 10:20-0500 Systolic blood pressure 180 mm[Hg] Gilson Zeinab Other [employer] Other 08-04-2022 13:58-0500 Body height 158.8 cm Jayden Connelly APRN.ROUTE SALES MANAGER Work Phone: [facility] 08-04-2022 13:58-0500 Body temperature 97.39 [degF] Jayden Connelly APRN.ROUTE SALES MANAGER Work Phone: [facility] 08-04-2022 13:58-0500 Body weight 85.37 kg Jayden Connelly APRN.ROUTE SALES MANAGER Work Phone: [facility] 08-04-2022 13:58-0500 Diastolic blood pressure 80 mm[Hg] Jayden Connelly APRN.ROUTE SALES MANAGER Work Phone: [facility] 08-04-2022 13:58-0500 Heart rate 76 /min Jayden Connelly APRN.ROUTE SALES MANAGER Work Phone: [facility] 08-04-2022 13:58-0500 Respiratory rate 16 /min Jayden Connelly APRN.ROUTE SALES MANAGER Work Phone: [facility] 08-04-2022 13:58-0500 SaO2% (BldA) [Mass fraction] 98 % Jayden Connelly APRN.ROUTE SALES MANAGER Work Phone: [facility] 08-04-2022 13:58-0500 Systolic blood pressure 149 mm[Hg] Jayden Connelly APRN.ROUTE SALES MANAGER Work Phone: [facility] 06-23-2022 13:57-0500 Body height 158.8 cm Rinku Abhyankar MD Work Phone: [facility] 06-23-2022 13:57-0500 Body temperature 97.59 [degF] Rinku Ramsey MD Work Phone: [facility] 06-23-2022 13:57-0500 Body weight 88.27 kg Rinku Ramsey MD Work Phone: [facility] 06-23-2022 13:57-0500 Diastolic blood pressure 88 mm[Hg] Rinku Ramsey MD Work Phone: [facility] 06-23-2022 13:57-0500 Heart rate 66 /min Rinku Ramsey MD Work Phone: [facility] 06-23-2022 13:57-0500 Respiratory rate 16 /min Rinku Ramsey MD Work Phone: [facility] 06-23-2022 13:57-0500 SaO2% (BldA) [Mass fraction] 100 % Rinku Ramsey MD Work Phone: [facility] 06-23-2022 13:57-0500 Systolic blood pressure 156 mm[Hg] Rinku Ramsey MD Work Phone: [facility] 05-12-2022 14:19-0400 Diastolic blood pressure 80 mm[Hg] Jayden Connelly APRN.ROUTE SALES MANAGER Work Phone: [facility] 05-12-2022 14:19-0400 Systolic blood pressure 158 mm[Hg] Jayden Connelly APRN.ROUTE SALES MANAGER Work Phone: [facility] 05-12-2022 14:13-0400 Body height 158.8 cm Jayden Connelly APRN.ROUTE SALES MANAGER Work Phone: [facility] 05-12-2022 14:13-0400 Body temperature 97.81 [degF] Jayden Connelly APRN.ROUTE SALES MANAGER Work Phone: [facility] 05-12-2022 14:13-0400 Body weight 88.27 kg Jayden Connelly APRN.ROUTE SALES MANAGER Work Phone: [facility] 05-12-2022 14:13-0400 Heart rate 76 /min Jayden Connelly ELECTRIC MOTOR CONTROLS ASSEMBLER.ROUTE SALES MANAGER Work Phone: [facility] 05-12-2022 14:13-0400 Respiratory rate 18 /min Jayden Connelly ELECTRIC MOTOR CONTR[employer]S ASSEMBLER.ROUTE SALES MANAGER Work Phone: [facility] 05-12-2022 14:13-0400 SaO2% (BldA) [Mass fraction] 98 % Jayden Connelly ELECTRIC MOTOR CONTR[employer]S ASSEMBLER.ROUTE SALES MANAGER Work Phone: [facility] 03-31-2022 13:55-0400 Body height 158.8 cm Rinku Ramsey MD Work Phone: [facility] 03-31-2022 13:55-0400 Body temperature 97.7 [degF] Rinku Ramsey MD Work Phone: [facility] 03-31-2022 13:55-0400 Body weight 88.72 kg Rinku Rmasey MD Work Phone: [facility] 03-31-2022 13:55-0400 Diastolic blood pressure 83 mm[Hg] Rinku Ramsey MD Work Phone: [facility] 03-31-2022 13:55-0400 Heart rate 66 /min Rinku Ramsey MD Work Phone: [facility] 03-31-2022 13:55-0400 Respiratory rate 16 /min Rinku Ramsey MD Work Phone: [facility] 03-31-2022 13:55-0400 SaO2% (BldA) [Mass fraction] 95 % Rinku Ramsey MD Work Phone: [facility] 03-31-2022 13:55-0400 Systolic blood pressure 173 mm[Hg] Rinku Ramsey MD Work Phone: [facility] 02-11-2022 13:41-0400 Body height 158.8 cm Jayden Dayton ELECTRIC MOTOR CONTROLS ASSEMBLER.ROUTE SALES MANAGER Work Phone: [facility] 02-11-2022 13:41-0400 Body temperature 97.3 [degF] Jayden Connelly ELECTRIC MOTOR CONTROLS ASSEMBLER.ROUTE SALES MANAGER Work Phone: [facility] 02-11-2022 13:41-0400 Body weight 89.18 kg Jayden Connelly ELECTRIC MOTOR CONTROLS ASSEMBLER.ROUTE SALES MANAGER Work Phone: [facility] 02-11-2022 13:41-0400 Diastolic blood pressure 83 mm[Hg] Jayden Connelly ELECTRIC MOTOR CONTR[employer]S ASSEMBLER.ROUTE SALES MANAGER Work Phone: [facility] 02-11-2022 13:41-0400 Heart rate 79 /min Jayden Connelly ELECTRIC MOTOR CONTROLS ASSEMBLER.ROUTE SALES MANAGER Work Phone: [facility] 02-11-2022 13:41-0400 Respiratory rate 16 /min Jayden Connelly ELECTRIC [employer]OR CONTR[employer]S ASSEMBLER.ROUTE SALES MANAGER Work Phone: [facility] 02-11-2022 13:41-0400 SaO2% (BldA) [Mass fraction] 99 % Jayden Connelly ELECTRIC [employer]OR CONTR[employer]S ASSEMBLER.ROUTE SALES MANAGER Work Phone: [facility] 02-11-2022 13:41-0400 Systolic blood pressure 159 mm[Hg] Jayden Connelly ELECTRIC MOTOR CONTROLS ASSEMBLER.ROUTE SALES MANAGER Work Phone: [facility] 12-17-2021 14:41-0400 Body height 158.8 cm Jayden Connelly ELECTRIC MOTOR CONTROLS ASSEMBLER.ROUTE SALES MANAGER Work Phone: [facility] 12-17-2021 14:41-0400 Body temperature 97.3 [degF] Jayden Connelly ELECTRIC MOTOR CONTROLS ASSEMBLER.ROUTE SALES MANAGER Work Phone: [facility] 12-17-2021 14:41-0400 Body weight 87.64 kg Jayden oCnnelly ELECTRIC MOTOR CONTROLS ASSEMBLER.ROUTE SALES MANAGER Work Phone: [facility] 12-17-2021 14:41-0400 Diastolic blood pressure 80 mm[Hg] Jayden Connelly ELECTRIC MOTOR CONTROLS ASSEMBLER.ROUTE SALES MANAGER Work Phone: [facility] 12-17-2021 14:41-0400 Heart rate 75 /min Jayden Dayton ELECTRIC MOTOR CONTROLS ASSEMBLER.ROUTE SALES MANAGER Work Phone: [facility] 12-17-2021 14:41-0400 Respiratory rate 16 /min Jayden Connelly APRN.ROUTE SALES MANAGER Work Phone: [facility] 12-17-2021 14:41-0400 SaO2% (BldA) [Mass fraction] 96 % Jayden Connelly APRN.ROUTE SALES MANAGER Work Phone: [facility] 12-17-2021 14:41-0400 Systolic blood pressure 154 mm[Hg] Jayden Connelly APRN.ROUTE SALES MANAGER Work Phone: [facility] 11-10-2021 15:00-0400 Body height 160.02 cm Gilson Zeinab Other [employer] Other 11-10-2021 15:00-0400 Body mass index (BMI) [Ratio] 34.18 kg/m2 Gilson Zeinab Other [employer] Other 11-10-2021 15:00-0400 Body temperature 97.1 [degF] Gilson Zeinab Other [employer] Other 11-10-2021 15:00-0400 Body weight 87.54 kg Gilson Zeinab Other [employer] Other 11-10-2021 15:00-0400 Diastolic blood pressure 70 mm[Hg] Gilson Zeinab Other [employer] Other 11-10-2021 15:00-0400 Respiratory rate 18 /min Gilson Zeinab Other [employer] Other 11-10-2021 15:00-0400 SaO2% (BldA) [Mass fraction] 96 % Gilson Zeinab Other [employer] Other 11-10-2021 15:00-0400 Systolic blood pressure 154 mm[Hg] Gilson Ceja Other [employer] Other 10-28-2021 11:27-0400 Body height 158.8 cm Rinku Ramsey MD Work Phone: [facility] 10-28-2021 11:27-0400 Body temperature 97.39 [degF] Rinku Ramsey MD Work Phone: [facility] 10-28-2021 11:27-0400 Body weight 87.82 kg Rinku Ramsey MD Work Phone: [facility] 10-28-2021 11:27-0400 Diastolic blood pressure 91 mm[Hg] Rinku Ramsey MD Work Phone: [facility] 10-28-2021 11:27-0400 Heart rate 75 /min Rinku Ramsey MD Work Phone: [facility] 10-28-2021 11:27-0400 Respiratory rate 16 /min Rinku Ramsey MD Work Phone: [facility] 10-28-2021 11:27-0400 SaO2% (BldA) [Mass fraction] 96 % Rinku Ramsey MD Work Phone: [facility] 10-28-2021 11:27-0400 Systolic blood pressure 157 mm[Hg] Rinku Ramsey MD Work Phone: [facility] Encounters Encounter Date Encounter Type Care Provider Facility Start: 03-14-2025 End: 03-14-2025 ambulatory [facility] Work Phone: Hematology/Oncology Comment on above: 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 deficiency (Primary Dx); Abnormal weight loss; Other systemic lupus erythematosus with other organ involvement (HCC); Thrombocytopenia; Chronic ITP (idiopathic thrombocytopenia) (HCC); 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) Start: 03-13-2025 End: 03-13-2025 ambulatory Stephanie Dumont Work Phone: [facility] Work Phone: Start: 03-13-2025 End: 03-13-2025 Patient encounter procedure Stephanie Dumont SEMICONDUCTOR EQUIPMENT TECHNICIAN-C -[facility] Work Phone: Start: 02-14-2025 End: 02-14-2025 Patient encounter procedure Jayden Connelly APRN.ROUTE SALES MANAGER Work Phone: Hematology/Oncology Start: 02-14-2025 End: 02-14-2025 ambulatory Jayden Connelly ELECTRIC [employer]OR CONTROLS ASSEMBLER.ROUTE SALES MANAGER Work Phone: Hematology/Oncology Comment on above: 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 deficiency (Primary Dx); 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); Thrombocytopenia; Chronic ITP (idiopathic thrombocytopenia) (HCC); Essential hypertension; Obstructive sleep apnea syndrome; Abdominal aortic aneurysm (AAA) without rupture, unspecified part Start: 02-05-2025 End: 02-05-2025 ambulatory SUSANNA GRAF [facility] Start: 02-05-2025 End: 02-05-2025 Subsequent hospital visit by physician Susanna Graf MD Work Phone: [facility] [place] Comment on above: Cholesteatoma of lef t ear (Primary Dx); 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 Start: 01-31-2025 End: 01-31-2025 ambulatory [facility] Work Phone: Hematology/Oncology Comment on above: 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 c hronic kidney disease (HCC) (Primary Dx) Start: 01-28-2025 End: 01-28-2025 Telephone encounter Desirae Pimentel RN Hematology/Oncology Comment on above: Lab Orders Start: 01-27-2025 End: 01-27-2025 ambulatory Stephanie Dumont Work Phone: [facility] Work Phone: Start: 01-27-2025 End: 01-27-2025 Patient encounter procedure Gilson Zeinab MD -[facility] Work Phone: Start: 01-21-2025 End: 01-21-2025 Orders Only Stephanie Dumont SEMICONDUCTOR EQUIPMENT TECHNICIAN Work Phone: [facility] Comment on above: Abdominal aortic ane urysm (AAA) without rupture, unspecified part (Primary Dx) Start: 01-20-2025 ambulatory SUSANNA Tonie AWANY [facility] Start: 01-17-2025 End: 01-17-2025 ambulatory [facility] Work Phone: Hematology/Oncology Comment on above: 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 deficiency (Primary Dx); Abnormal weight loss; Other systemic lupus erythematosus with other organ involvement (HCC); Thrombocytopenia; Chronic ITP (idiopathic thrombocytopenia) ([facility]); 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 chronic kidney disease ([facility]) Start: 01-15-2025 End: 01-15-2025 Office outpatient visit 15 minutes Stephanie Dumont SEMICONDUCTOR EQUIPMENT TECHNICIAN Work Phone: [facility] Comment on above: Weakness of both leg s (Primary Dx); Chronic kidney disease, stage 3b ([facility]); Obesity (BMI 30-39.9); Tobacco dependence; Lumbar spondylosis Start: 01-15-2025 End: 01-15-2025 ambulatory STEPHANIE DUMONT Not Available Start: 01-15-2025 End: 01-15-2025 Bamboo flowsheet Stephanie Dumont SEMICONDUCTOR EQUIPMENT TECHNICIAN Work Phone: [facility] Start: 01-15-2025 End: 01-15-2025 Bamboo flowsheet Stephanie Dumont SEMICONDUCTOR EQUIPMENT TECHNICIAN Work Phone: [facility] Start: 01-15-2025 End: 01-15-2025 Clinisync Result Encounter Stephanie Dumont NP Work Phone: [facility] External Department Unsolicited Start: 01-06-2025 End: 01-06-2025 Bamboo flowsheet Stephanie Dumont SEMICONDUCTOR EQUIPMENT TECHNICIAN Work Phone: [facility] Start: 01-06-2025 End: 01-06-2025 Bamboo flowsheet Stephanie Dumont SEMICONDUCTOR EQUIPMENT TECHNICIAN Work Phone: [facility] Start: 01-06-2025 End: 01-06-2025 Transitional care manage srvc 14 day discharge Stephanie Dumont SEMICONDUCTOR EQUIPMENT TECHNICIAN Work Phone: [facility] Comment on above: DARYL (acute kidney in jury) (Primary Dx); Essential hypertension ; Chronic kidney disease, stage 3b ([facility]); Diarrhea, unspecified type; Tobacco dependence Start: 01-06-2025 End: 01-06-2025 ambulatory STEPHANIE TIM Not Available Start: 01-03-2025 End: 01-03-2025 Patient encounter procedure Jayden Connelly APRN.CNP Work Phone: Hematology/Oncology Start: 01-03-2025 End: 01-03-2025 Refill Rinku Ramsey MD Work Phone: Hematology/Oncology Comment on above: Refill Request Start: 01-03-2025 End: 01-03-2025 ambulatory [facility] Work Phone: Hematology/Oncology Comment on above: 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 c hronic kidney disease (HCC) (Primary Dx) Malaise and fatigue (Primary Dx); 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); 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 deficiency; Thrombocytopenia; Chronic ITP (idiopathic thrombocytopenia) ([facility]) Start: 01-01-2025 End: 01-01-2025 Refill Stephanie Dumont SEMICONDUCTOR EQUIPMENT TECHNICIAN Work Phone: [facility] Comment on above: Age-related osteopor osis without current pathological fracture (Primary Dx) Start: 12-31-2024 End: 12-31-2024 Refill Stephanie Dumont SEMICONDUCTOR EQUIPMENT TECHNICIAN Work Phone: [facility] Comment on above: Coronary artery dise ase involving [place] coronary artery of [place] heart without angina pectoris Start: 12-25-2024 End: 12-25-2024 Bamboo flowsheet Stephanie [facility] SEMICONDUCTOR EQUIPMENT TECHNICIAN Work Phone: [facility] Start: 12-25-2024 End: 12-27-2024 Bamboo flowsheet Stephanie Dumont SEMICONDUCTOR EQUIPMENT TECHNICIAN Work Phone: [facility] Start: 12-25-2024 End: 12-27-2024 Clinisync Result Encounter Generic External Data Provider [facility] External Department Unsolicited Start: 12-25-2024 End: 12-25-2024 Office outpatient visit 25 minutes Stephanie Dumont SEMICONDUCTOR EQUIPMENT TECHNICIAN Work Phone: [facility] Comment on above: Diarrhea, unspecifie d type (Primary Dx); Chronic kidney disease, stage 3b ([facility]); Coronary artery disease involving [place] coronary artery of [place] heart without angina pectoris ; Essential hypertension ; Obesity (BMI 30-39.9); Pre-diabetes; Chronic ITP (idiopathic thrombocytopenia) ([facility]); Tobacco dependence; Thyroid nodule Start: 12-25-2024 End: 12-25-2024 ambulatory STEPHANIE DUMONT Not Available Start: 12-20-2024 End: 12-20-2024 ambulatory [facility] Work Phone: Hematology/Oncology Comment on above: 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 c hronic kidney disease (HCC) (Primary Dx); 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 deficiency; Abnormal weight loss; Other systemic lupus erythematosus with other organ involvement ([facility]); Thrombocytopenia; Chronic ITP (idiopathic thrombocytopenia) ([facility]) Start: 12-18-2024 End: 12-18-2024 ambulatory SUSANNA GRAF [facility] Start: 12-18-2024 Encounter for other preprocedural examination STEPHANIE DUMONT [facility] Start: 12-12-2024 End: 12-12-2024 Clinisync Result Encounter Stephanie Dumont NP Work Phone: [facility] External Department Unsolicited Start: 12-12-2024 End: 12-12-2024 Clinisync Result Encounter Stephanie Dumont NP Work Phone: [facility] External Department Unsolicited Start: 2024 End: 2024 ambulatory [facility] Work Phone: Hematology/Oncology Comment on above: 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 hronic kidney disease (HCC) (Primary Dx) Start: 11-26-2024 End: 11-26-2024 Office outpatient visit 25 minutes Susanna Graf MD Work Phone: [facility] Comment on above: Cholesteatoma of lef t ear (Primary Dx); 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; Preoperative clearance; Thrombocytopenia Start: 11-26-2024 End: 11-26-2024 Preoperative state Susanna Graf MD Work Phone: [facility] Start: 11-26-2024 End: 11-26-2024 ambulatory [facility] Start: 11-22-2024 End: 11-22-2024 Nursing evaluation of patient and report Debora Gaona Work Phone: Hematology/Oncology Comment on above: 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 deficiency (Primary Dx); Thrombocytopenia; Abnormal weight loss; Chronic ITP (idiopathic thrombocytopenia) (HCC) Start: 11-22-2024 End: 11-22-2024 ambulatory RINKU [facility] Facility:[facility] Start: 11-22-2024 End: 11-22-2024 Office outpatient visit 25 minutes Rinku Ramsey MD Work Phone: Hematology/Oncology Comment on above: Chronic ITP (idiopat hic thrombocytopenia) (HCC) (Primary Dx); Stage 3b chronic kidney disease (HCC); 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); 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 deficiency; Systemic lupus erythematosus, unspecified SLE type, unspecified organ involvement status (HCC) Start: 11-22-2024 End: 11-22-2024 ambulatory RINKU [facility] Facility:[facility] Start: 11-06-2024 End: 11-07-2024 Social Work Katheryn YOU Hematology/Oncology Start: 10-11-2024 End: 10-11-2024 Nursing evaluation of patient and report Debora Gaona Work Phone: Hematology/Oncology Comment on above: 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 deficiency (Primary Dx); Thrombocytopenia; Abnormal weight loss; Chronic ITP (idiopathic thrombocytopenia) (HCC) Start: 10-11-2024 End: 10-11-2024 Office outpatient visit 25 minutes Li Frank ELECTRIC MOTOR CONTROLS ASSEMBLER.ROUTE SALES MANAGER Work Phone: Hematology/Oncology Comment on above: 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 deficiency (Primary Dx); Thrombocytopenia Start: 10-11-2024 End: 10-11-2024 ambulatory [facility] Facility:[facility] Start: 10-07-2024 End: 10-07-2024 Refill Stephanie Dumont NP Work Phone: [facility] Comment on above: Coronary artery dise ase involving [place] coronary artery of [place] heart without angina pectoris ([facility]) Start: 09-25-2024 End: 09-25-2024 ambulatory MAR H TIMMIS Not Available Start: 09-17-2024 End: 09-17-2024 Clinisync Result Encounter Generic External Data Provider [facility] External Department Unsolicited Start: 09-17-2024 End: 09-17-2024 Clinisync Result Encounter Generic External Data Provider [facility] External Department Unsolicited Start: 08-30-2024 End: 08-30-2024 Nursing evaluation of patient and report Ma Nurse Clarence Gaona Work Phone: Hematology/Oncology Comment on above: 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 deficiency (Primary Dx); Thrombocytopenia (HCC); Abnormal weight loss; Chronic ITP (idiopathic thrombocytopenia) (HCC) Start: 08-30-2024 End: 08-30-2024 Office outpatient visit 25 minutes Li Frank ELECTRIC MOTOR CONTROLS ASSEMBLER.ROUTE SALES MANAGER Work Phone: Hematology/Oncology Comment on above: 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 deficiency (Primary Dx); Thrombocytopenia (HCC); Chronic ITP (idiopathic thrombocytopenia) (HCC) Start: 08-30-2024 End: 08-30-2024 ambulatory [facility] Facility:[facility] Start: 08-21-2024 End: 08-21-2024 ambulatory [facility] Work Phone: Start: 08-21-2024 End: 08-21-2024 Patient encounter procedure [facility] Nephrology Cristina Reich Work Phone: Start: 08-15-2024 End: 08-15-2024 Bamboo flowsheet Stephanie Dumont SEMICONDUCTOR EQUIPMENT TECHNICIAN Work Phone: [facility] Start: 08-15-2024 End: 08-15-2024 Bamboo flowsheet Stephanie Dumont SEMICONDUCTOR EQUIPMENT TECHNICIAN Work Phone: [facility] Start: 08-15-2024 End: 08-15-2024 Office outpatient visit 25 minutes Stephanie Dumont NP Work Phone: [facility] Comment on above: Essential hypertensi on (CMS/HCC) (Primary Dx); Systemic lupus erythematosus, unspecified (CMS/HCC); Qualitative platelet defects (CMS/HCC); Chronic kidney disease, stage 3a (HCC) (CMS/HCC); Immune thrombocytopenic purpura (CMS/HCC); Secondary pulmonary arterial hypertension (CMS/HCC); Coronary artery disease involving [place] coronary artery of [place] heart without angina pectoris (CMS/HCC); PAH (pulmonary artery hypertension) (CMS/HCC); Obesity (BMI 30-39.9); Pre-diabetes; Tobacco dependence; Multiple lung nodules on CT; Family history of cancer Start: 08-15-2024 End: 08-15-2024 ambulatory STEPHANIE DUMONT Not Available Start: 08-12-2024 End: 08-12-2024 ambulatory [facility] Start: 07-23-2024 End: 07-31-2024 Telephone encounter Krista [facility] Work Phone: [facility] Comment on above: Medication Assistanc e Program; Medication Authorization ([employer] APPROVED) Start: 07-22-2024 End: 07-22-2024 ambulatory Krista [facility]arden [facility] Work Phone: [facility] Start: 07-22-2024 End: 07-22-2024 E-mail encounter from caregiver Krista [facility]arden [facility] Work Phone: [facility] Start: 07-19-2024 End: 07-19-2024 Refill Jayden Connelly APRN.ROUTE SALES MANAGER Work Phone: Hematology/Oncology Comment on above: Refill Request Start: 07-18-2024 End: 07-18-2024 ambulatory MASSIEL Zelaya B[facility] Start: 07-11-2024 End: 07-11-2024 Nursing evaluation of patient and report Debora Gaona Work Phone: Hematology/Oncology Comment on above: 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 deficiency (Primary Dx); Thrombocytopenia (HCC); Abnormal weight loss; Chronic ITP (idiopathic thrombocytopenia) (HCC) Start: 07-11-2024 End: 07-11-2024 Office outpatient visit 25 minutes Li Frank APRN.ROUTE SALES MANAGER Work Phone: Hematology/Oncology Comment on above: 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 deficiency (Primary Dx); Chronic ITP (idiopathic thrombocytopenia) (HCC) Start: 07-11-2024 End: 07-11-2024 ambulatory RINKU RAMSEY Facility:[facility] Start: 05-31-2024 [facility][1] MASSIEL BALLARD [facility] Start: 05-30-2024 End: 05-30-2024 Nursing evaluation of patient and report Debora [...] Start: 05-30-2024 End: 05-30-2024 ambulatory RINKU RAMSEY Facility:[facility] Start: 05-29-2024 End: 05-29-2024 Orders Only Stephanie Dumont SEMICONDUCTOR EQUIPMENT TECHNICIAN Work Phone: [facility] Comment on above: Multiple lung nodule s on CT (Primary Dx) Start: 05-28-2024 End: 05-28-2024 Orders Only Stephanie Tim SEMICONDUCTOR EQUIPMENT TECHNICIAN Work Phone: [facility] Comment on above: Multiple lung nodule s on CT (Primary Dx) Start: 05-24-2024 End: 05-24-2024 Telephone encounter Stephanie Tim SEMICONDUCTOR EQUIPMENT TECHNICIAN Work Phone: [facility] Start: 05-23-2024 End: 05-23-2024 Telephone encounter Stephanie Tim SEMICONDUCTOR EQUIPMENT TECHNICIAN Work Phone: [facility] Start: 05-21-2024 End: 05-21-2024 ambulatory DOUG Kori [facility] Start: 05-15-2024 End: 05-15-2024 Office outpatient visit 25 minutes Mar Mayo MD Work Phone: [facility] Comment on above: Hyperthyroidism (CMS /HCC) (Primary Dx); Thyroid nodule (CMS/HCC) Start: 05-15-2024 End: 05-15-2024 Orders Only Stephanie Tim SEMICONDUCTOR EQUIPMENT TECHNICIAN Work Phone: [facility] Comment on above: Multiple lung nodule s on CT (Primary Dx) Start: 05-14-2024 End: 05-14-2024 Patient encounter procedure Stephanie Tim SEMICONDUCTOR EQUIPMENT TECHNICIAN Work Phone: [facility] Comment on above: Encounter for subseq uent annual wellness visit (AWV) in Medicare patient (Primary Dx); Tobacco dependence; Pre-diabetes; Obesity (BMI 30-39.9); Age-related osteoporosis without current pathological fracture (CMS/HCC); Coronary artery disease involving [place] coronary artery of [place] heart without angina pectoris (CMS/HCC); Essential hypertension (CMS/HCC) Start: 05-14-2024 End: 05-14-2024 ambulatory STEPHANIE ANILZ Not Available Start: 05-13-2024 End: 05-13-2024 Bamboo flowsheet Jr. Herson Ramires Stepanic DO Work Phone: [facility] Start: 05-13-2024 End: 05-13-2024 Bamboo flowsheet Jr. Herson Ike Stepanic DO Work Phone: [facility] Start: 05-13-2024 End: 05-13-2024 ambulatory JR., HERSON Ramires STEPANIC Not Available Start: 05-13-2024 End: 05-13-2024 Office outpatient visit 25 minutes JrDonald Herson Ramires Stepanic DO Work Phone: [facility] Comment on above: Left leg pain (Prima ry Dx); Lumbar pain; Weakness of left lower extremity Start: 05-09-2024 End: 05-09-2024 ambulatory STEPHANIE Caden [facility] Start: 05-09-2024 End: 05-09-2024 ambulatory [facility] Start: 05-07-2024 End: 05-07-2024 Orders Only Stephanie Dumont SEMICONDUCTOR EQUIPMENT TECHNICIAN Work Phone: [facility] Comment on above: Multiple lung nodule s on CT (Primary Dx) Start: 05-02-2024 End: 05-02-2024 ambulatory [facility] Start: 05-02-2024 End: 05-02-2024 ambulatory [facility] Start: 04-25-2024 End: 04-25-2024 Telephone encounter Stephanie Dumont SEMICONDUCTOR EQUIPMENT TECHNICIAN Work Phone: [facility] Start: 04-24-2024 End: 04-24-2024 Office outpatient visit 25 minutes Stephanie Dumont SEMICONDUCTOR EQUIPMENT TECHNICIAN Work Phone: [facility] Comment on above: Thyroid nodule (CMS/ HCC) (Primary Dx); Immune thrombocytopenic purpura (CMS/HCC); Coronary artery disease involving [place] coronary artery of [place] heart without angina pectoris (CMS/HCC); Pre-diabetes; Obesity (BMI 30-39.9); Diarrhea, unspecified type Start: 04-24-2024 End: 04-24-2024 ambulatory STEPHANIE DUMONT Not Available Start: 04-18-2024 End: 04-18-2024 Nursing evaluation of patient and report Ma [...] Start: 04-18-2024 End: 04-18-2024 ambulatory RINKU RAMSEY Facility:[facility] Start: 04-17-2024 End: 04-17-2024 ambulatory STEPHANIE DUMONT [facility] Start: 04-16-2024 End: 04-16-2024 ambulatory Simon Zuniga [facility] Work Phone: Start: 04-16-2024 End: 04-16-2024 Departed Referred MD Simon Zuniga Work Phone: [facility] Start: 04-10-2024 End: 04-10-2024 Refill Stephanie Dumont SEMICONDUCTOR EQUIPMENT TECHNICIAN Work Phone: [facility] Comment on above: Coronary artery dise ase involving [place] coronary artery of [place] heart without angina pectoris (CMS/HCC) Start: 04-09-2024 End: 04-09-2024 Telephone encounter Desirae Pimentel RN Hematology/Oncology Comment on above: Thyroid fine needle biopsy at [facility] Start: 04-09-2024 End: 04-09-2024 ambulatory BLAISE ALEX Not Available Start: 04-09-2024 End: 04-09-2024 ambulatory BLASIE ALEX Not Available Start: 04-09-2024 End: 04-09-2024 Office outpatient visit 25 minutes Blaise Alex PA Work Phone: [facility] Comment on above: Left leg pain (Prima ry Dx) Start: 04-05-2024 End: 04-05-2024 Orders Only Stephanie Dumont SEMICONDUCTOR EQUIPMENT TECHNICIAN Work Phone: [facility] Comment on above: Disease of thyroid g land (CMS/HCC) (Primary Dx) Start: 04-05-2024 End: 04-05-2024 Patient encounter procedure [facility] Provider [facility] Department Start: 04-04-2024 End: 04-04-2024 Bamboo flowsheet Stephanie Dumont SEMICONDUCTOR EQUIPMENT TECHNICIAN Work Phone: [facility] Start: 04-04-2024 End: 04-04-2024 External Result Encounter Stephanie Dumont NP Work Phone: [facility] External Department Unsolicited Start: 04-04-2024 End: 04-04-2024 External Result Encounter Stephanie Dumont SEMICONDUCTOR EQUIPMENT TECHNICIAN Work Phone: [facility] External Department Unsolicited Start: 04-04-2024 End: 04-04-2024 ambulatory STEPHANIE DUMONT Not Available Start: 04-04-2024 End: 04-04-2024 Office outpatient visit 25 minutes Stephanie Dumont SEMICONDUCTOR EQUIPMENT TECHNICIAN Work Phone: [facility] Comment on above: Coronary artery dise ase involving [place] coronary artery of [place] heart without angina pectoris (CMS/HCC) (Primary Dx); Elevated glucose level; Essential hypertension (CMS/HCC); Encounter for screening mammogram for malignant neoplasm of breast; Other chest pain; Disease of thyroid gland (CMS/HCC); Obesity (BMI 30-39.9); Posterior left knee pain Start: 04-02-2024 End: 04-05-2024 Refill Krista [facility] Work Phone: [facility] Comment on above: Refill Request Coronary artery dise ase involving [place] coronary artery of [place] heart without angina pectoris (CMS/HCC) Start: 03-27-2024 End: 03-27-2024 Orders Only Stephanie Dumont SEMICONDUCTOR EQUIPMENT TECHNICIAN Work Phone: [facility] Comment on above: Obstructive sleep ap emory syndrome (Primary Dx); PAH (pulmonary artery hypertension) (CMS/HCC) Start: 03-05-2024 End: 03-05-2024 Nursing evaluation of patient and report Debora Nurse Clarence Gaona Work Phone: Hematology/Oncology Comment on above: 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 deficiency (Primary Dx); Abnormal weight loss; Lupus (HCC); Thrombocytopenia (HCC); Chronic ITP (idiopathic thrombocytopenia) ([facility]) Start: 03-05-2024 End: 03-05-2024 Office outpatient visit 25 minutes Rinku Ramsey MD Work Phone: Hematology/Oncology Comment on above: Chronic ITP (idiopat hic thrombocytopenia) (HCC) (Primary Dx); 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 deficiency; Obstructive sleep apnea syndrome Start: 03-04-2024 End: 03-04-2024 Bamboo flowsheet Stephanie Dumont SEMICONDUCTOR EQUIPMENT TECHNICIAN Work Phone: [facility] Start: 03-04-2024 End: 03-04-2024 Bamboo flowsheet Stephanie Dumont SEMICONDUCTOR EQUIPMENT TECHNICIAN Work Phone: [facility] Start: 03-04-2024 End: 03-04-2024 Office outpatient visit 25 minutes Stephanie Dumont SEMICONDUCTOR EQUIPMENT TECHNICIAN Work Phone: [facility] Comment on above: Coronary artery dise ase involving [place] coronary artery of [place] heart without angina pectoris (CMS/HCC) (Primary Dx); Calcification of aortic valve; Essential hypertension (CMS/HCC); Thyroid nodule (CMS/HCC) Start: 03-04-2024 End: 03-04-2024 ambulatory STEPHANIE DUMONT Not Available Start: 03-01-2024 End: 03-01-2024 ambulatory STEPHANIE DUMONT [facility] Start: 02-26-2024 End: 02-26-2024 Orders Only Stephanie Dumont SEMICONDUCTOR EQUIPMENT TECHNICIAN Work Phone: [facility] Comment on above: Thyroid nodule (CMS/ HCC) (Primary Dx); Calcification of aortic valve; Coronary artery disease involving [place] coronary artery of [place] heart without angina pectoris (CMS/HCC) Start: 02-12-2024 Non-patient / Non-visit MD Weathers Work Phone: [facility] Work Phone: Start: 02-12-2024 End: 02-12-2024 ambulatory STEPHANIE TIM Not Available Start: 02-06-2024 End: 02-06-2024 [facility] Start: 02-02-2024 End: 02-02-2024 Office outpatient visit 15 minutes Rinku Ramsey MD Work Phone: Hematology/Oncology Comment on above: Chronic ITP (idiopat hic thrombocytopenia) (HCC) (Primary Dx); Essential hypertension; Obstructive sleep apnea syndrome; Stage 3b chronic kidney disease (HCC) Start: 01-25-2024 Refill Desirae Pimentel RN Hemat ology/Oncology Comment on above: Refill Request Start: 01-19-2024 Refill Jayden Connelly APRN.CNP Work Phone: Hematology/Oncology Comment on above: Refill Request Start: 01-02-2024 End: 01-02-2024 Postop follow up visit related to original px Emani Gutiérrez MD Work Phone: [facility] Comment on above: Cholesteatoma of lef t ear (Primary Dx); Encounter for postoperative care Start: 01-02-2024 End: 01-02-2024 ambulatory EMANI Richter [facility] Ambulatory Start: 12-18-2023 End: 12-18-2023 Preoperative state Susanna Graf MD Work Phone: [facility] Start: 12-18-2023 End: 12-18-2023 Subsequent hospital visit by physician Susanna Graf MD Work Phone: [facility] [place] Comment on above: Cholesteatoma of lef t ear (Primary Dx); Preoperative clearance; Post-operative pain Start: 12-15-2023 End: 12-15-2023 Nursing evaluation of patient and report Debora Lima Candelaria Work Phone: Hematology/Oncology Comment on above: Preoperative examina tion (Primary Dx) Start: 12-15-2023 End: 12-15-2023 Preprocedural examination done Debora Gaona Work Phone: [facility] Start: 11-28-2023 Telephone encounter Emilia holder RN Work Phone: Hematology/Oncology Comment on above: Call Request Start: 11-24-2023 End: 11-24-2023 Office outpatient visit 25 minutes Rinku Ramsey MD Work Phone: Hematology/Oncology Comment on above: Chronic ITP (idiopat hic thrombocytopenia) (HCC) (Primary Dx); Stage 3b chronic kidney disease (HCC); Secondary hypertension; Obstructive sleep apnea syndrome Start: 11-14-2023 End: 11-14-2023 Subsequent hospital visit by physician Kely [id number] [facility] Comment on above: Cholesteatoma of lef t ear Start: 11-14-2023 End: 11-14-2023 Office outpatient new 45 minutes Susanna Graf MD Work Phone: [facility] Comment on above: Cholesteatoma of lef [...] Mar krause MD Work Phone: [facility] [place] Start: 08-16-2023 Bamboo flowsheet Karissa A McG [...] Office outpatient vi sit 15 minutes Gilson Ceja [facility] [place] Start: 06-28-2023 End: 06-28-2023 ambulatory Gilson Zeinab [facility] Other Start: 06-05-2023 End: 06-05-2023 ambulatory Ana Hernandez PA-C Work Phone: Hematology/Oncology Comment on above: Chronic ITP (idiopat hic thrombocytopenia) (HCC) (Primary Dx); Essential hypertension; Hypertension, unspecified type Start: 06-05-2023 End: 06-05-2023 Patient encounter procedure Ana Hernandez PA-C Work Phone: [facility] Start: 05-01-2023 Refill Krista Calvo cierraemilia [facility] Work Phone: Hematology/Oncology Comment on above: Refill Request Start: 04-20-2023 End: 04-20-2023 Office outpatient visit 25 minutes Rinku Ramsey MD Work Phone: Hematology/Oncology Comment on above: Chronic ITP (idiopat hic thrombocytopenia) (HCC) (Primary Dx); Essential hypertension Start: 04-19-2023 Telephone encounter Rinku hicks MD Work Phone: Hematology/Oncology Comment on above: Lab Orders Start: 04-05-2023 End: 04-05-2023 ambulatory Gilson Zeinab Other [employer] Other Start: 04-05-2023 Telephone encounter Gilson Zeinab [facility] Start: 03-14-2023 End: 03-14-2023 ambulatory Gilson Zeinab Other [employer] Other Start: 03-14-2023 Telephone encounter Gilson Zeinab [...] Request Start: 09-07-2022 End: 09-07-2022 ambulatory Gilson Ceja Other [employer] Other Start: 09-07-2022 Office outpatient vi sit 25 minutes Gilson Ceja [facility] [place] Start: 08-29-2022 End: 08-29-2022 ambulatory NON STAFF [facility] Work Phone: Start: 08-29-2022 End: 08-29-2022 Patient encounter procedure MD Gilson Ceja Work Phone: [facility] [place] Work Phone: Start: 08-15-2022 Refill Jayden Connelly APRN.ROUTE SALES MANAGER Work Phone: Hematology/Oncology Comment on above: Refill Request Start: 08-05-2022 Refill Jayden Connelly APRN.ROUTE SALES MANAGER Work Phone: Hematology/Oncology Comment on above: Refill Request Start: 08-04-2022 End: 08-04-2022 ambulatory Jayden Connelly APRN.ROUTE SALES MANAGER Work Phone: Hematology/Oncology Comment on above: Chronic ITP (idiopat hic thrombocytopenia) (HCC) (Primary Dx); Obstructive sleep apnea syndrome; Hypertension, unspecified type; Systemic lupus erythematosus, unspecified SLE type, unspecified organ involvement status (HCC); Malaise and fatigue; Skin lesion of right lower extremity Start: 08-04-2022 End: 08-04-2022 Patient encounter procedure Jayden Connelly APRN.ROUTE SALES MANAGER Work Phone: [facility] Start: 08-04-2022 Telephone encounter Jayden christiansen APRN.ROUTE SALES MANAGER Work Phone: [facility] Comment on above: Referral Information (Dermatology) Start: [...] Refill Request Start: 06-15-2022 Refill Jayden Connelly APRN.ROUTE SALES MANAGER Work Phone: Hematology/Oncology Comment on above: Refill Request Start: 05-20-2022 Refill Rinku lawrence MD Work Phone: Hematology/Oncology Comment on above: Refill Request Start: 05-12-2022 End: 05-12-2022 ambulatory Jayden Connelly APRN.ROUTE SALES MANAGER Work Phone: Hematology/Oncology Comment on above: Chronic ITP (idiopat hic thrombocytopenia) (HCC) (Primary Dx); Obstructive sleep apnea syndrome; Essential hypertension Start: 05-12-2022 End: 05-12-2022 Patient encounter procedure Jayden Connelly APRN.[facility] Work Phone: [facility] Start: 04-24-2022 Refill Jayden Connelly APRN.ROUTE SALES MANAGER Work Phone: Hematology/Oncology Comment on above: [...] Start: 02-11-2022 End: 02-11-2022 ambulatory Jayden Connelly APRN.[facility] Work Phone: Hematology/Oncology Comment on above: Chronic ITP (idiopat hic thrombocytopenia) (HCC) (Primary Dx); Essential hypertension; Obstructive sleep apnea syndrome; Systemic lupus erythematosus, unspecified SLE type, unspecified organ involvement status (HCC) Start: 02-11-2022 End: 02-11-2022 Patient encounter procedure Jayden Connelly APRN.[facility] Work Phone: [facility] Start: 02-03-2022 Refill Jayden Connelly ELECTRIC MOTOR CONTROLS ASSEMBLER.[facility] Work Phone: Hematology/Oncology Comment on above: Refill Request Start: 01-15-2022 Refill Jayden Connelly ELECTRIC MOTOR CONTROLS ASSEMBLER.[facility] Work Phone: Hematology/Oncology Comment on above: Refill Request Start: 01-09-2022 Refill Jayden Connelly ELECTRIC MOTOR CONTROLS ASSEMBLER.[facility] Work Phone: Hematology/Oncology Comment on above: Refill Request Start: 12-17-2021 End: 12-17-2021 ambulatory Jayden Connelly ELECTRIC MOTOR CONTROLS ASSEMBLER.[facility] Work Phone: Hematology/Oncology Comment on above: Chronic ITP (idiopat hic thrombocytopenia) (HCC) (Primary Dx); Hypertension, unspecified type; Essential hypertension; Obstructive sleep apnea syndrome; Lung nodules; Systemic lupus erythematosus, unspecified SLE type, unspecified organ involvement status (HCC) Start: 12-17-2021 End: 12-17-2021 Patient encounter procedure Jayden Connelly APRN.[facility] Work Phone: [facility] Start: 11-10-2021 End: 11-10-2021 ambulatory Gilson Ceja Other [employer] Other Start: 11-10-2021 Office outpatient ne w 45 minutes Gilson Ceja [facility] [place] Start: 10-28-2021 End: 10-28-2021 ambulatory Rinku Ramsey MD Work Phone: Hematology/Oncology Comment on above: Chronic ITP (idiopat hic thrombocytopenia) (HCC) (Primary Dx); Essential hypertension; Obstructive sleep apnea syndrome; Lung nodules; Systemic lupus erythematosus, unspecified SLE type, unspecified organ involvement status (HCC) Start: 10-28-2021 End: 10-28-2021 Patient encounter procedure Rinku Ramsey MD Work Phone: [facility] Start: 10-25-2021 ambulatory Mary Ellen Tidwell MA [facility] Comment on above: Population Health Na vigation Outreach ([facility] PCP) Start: 10-19-2021 Refill Jayden Connelly APRN.ROUTE SALES MANAGER Work Phone: Hematology/Oncology Comment on above: Refill Request Start: 05-07-2021 Telephone encounter Luanne Salcedo [facility] Work Phone: [facility] Comment on above: Medication Follow-up ([employer] free drug application faxed) Start: 05-24-2016 End: 05-25-2016 Ambulatory COTY WRIGHT Facility:[facility] Procedures Date Procedure Procedure Detail Performing Clinician Start: 02-05-2025 PULSE OXIMETRY, CONTINUOUS Fran Mahoney MD Work Phone: Start: 01-15-2025 XR LUMBAR SPINE 2 OR 3V Stephanie Dumont SEMICONDUCTOR EQUIPMENT TECHNICIAN Work Phone: Start: 12-25-2024 E COLI SHIGA TOXIN EIA Generic External Data Provider Start: 12-25-2024 Hemoglobin glycosylated a1c Stephanie Dumont SEMICONDUCTOR EQUIPMENT TECHNICIAN Work Phone: Start: 12-12-2024 CT CHEST WO CON Stephanie sarmiento SEMICONDUCTOR EQUIPMENT TECHNICIAN Work Phone: Start: 09-17-2024 Us soft tissue head & neck real time imge docm Generic External Data Provider Start: 05-13-2024 Radex spine lumbosac ral 2/3 views Jr. Herson Avalos DO Work Phone: Start: 04-17-2024 Mammography Stephanie feldman SEMICONDUCTOR EQUIPMENT TECHNICIAN Work Phone: Start: 04-04-2024 Urnls dip stick/tabl et rgnt non-auto w/o micrscp Stephanie Dumont SEMICONDUCTOR EQUIPMENT TECHNICIAN Work Phone: Start: 12-18-2023 PULSE OXIMETRY, CONTINUOUS Lizeth Woodward MD Work Phone: Start: 12-15-2023 Ecg routine ecg w/le ast 12 lds i&r only [facility] Provider Start: 11-14-2023 Ct orbit sella/post fossa/ear w/o contrast matrl Susanna Graf MD Work Phone: Start: 08-16-2023 AUDITORY FUNCTION TESTS Karissa A Baudilio [facility] Work Phone: Start: 05-19-2023 Mammography Karissa Jim Puckett CCC-A Work Phone: Start: 08-29-2022 Ultrasonography of b ilateral kidneys MD Gilson Ceja Work Phone: Start: 07-25-2022 Colonoscopy Jayden christiansen [employer]LECTR[employer]OR [employer]S ASSEMBLER.[employer]TE SAL[employer] MANAGER Work Phone: Start: 02-11-2022 Adult depression scr eening assessment Jayden Connelly ELECTRIC MOTOR CONTROLS ASSEMBLER.ROUTE SALES MANAGER Work Phone: Start: 08-05-2021 Adult depression scr eening assessment Jayden Connelly ELECTRIC [employer]OR CONTROLS ASSEMBLER.ROUTE SALES MANAGER Work Phone: Start: 03-30-2017 Lipid 1996 panel - S henok or Plasma Rinku Ramsey MD Work Phone: Plan of Treatment Date Care Activity Detail Author Start: 07-25-2032 Screening for malignant neoplasm of colon [facility] Start: 02-15-2028 Diabetes Screening Diabetes Screening [facility] Start: 01-21-2028 Diabetes Screening Diabetes Screening [facility] Start: 01-04-2028 Diabetes Screening Diabetes Screening [facility] Start: 12-07-2027 Diabetes Screening Diabetes Screening [facility] Start: 11-23-2027 Diabetes Screening Diabetes Screening [facility] Start: 10-12-2027 Diabetes Screening Diabetes Screening [facility] Start: 08-30-2027 Diabetes Screening Diabetes Screening [facility] Start: 07-11-2027 Diabetes Screening Diabetes Screening [facility] Start: 05-30-2027 Diabetes Screening Diabetes Screening [facility] Start: 04-18-2027 Diabetes Screening Diabetes Screening [facility] Start: 03-05-2027 Diabetes Screening Diabetes Screening [facility] Start: 02-01-2027 Diabetes Screening Diabetes Screening [facility] Start: 12-14-2026 Diabetes Screening Diabetes Screening [facility] Start: 11-23-2026 Diabetes Screening Diabetes Screening [facility] Start: 10-12-2026 Diabetes Screening Diabetes Screening [facility] Start: 08-28-2026 Diabetes Screening Diabetes Screening [facility] Start: 06-05-2026 Diabetes Screening Diabetes Screening [facility] Start: 04-20-2026 Diabetes Screening Diabetes Screening [facility] Start: 03-14-2026 Complete blood count Hemoglobin/Hematocrit [facility] Start: 03-09-2026 DIABETES SCREEN DIABETES SCREEN [facility] Start: 03-09-2026 Diabetes Screening Diabetes Screening [facility] Start: 02-14-2026 Complete blood count Hemoglobin/Hematocrit [facility] Start: 02-14-2026 Creatinine measurement Serum Creatinine [facility] Start: 01-31-2026 Complete blood count Hemoglobin/Hematocrit [facility] Start: 01-26-2026 DIABETES SCREEN DIABETES SCREEN [facility] Start: 01-20-2026 Creatinine measurement Serum Creatinine [facility] Start: 01-17-2026 Complete blood count Hemoglobin/Hematocrit [facility] Start: 01-03-2026 Complete blood count Hemoglobin/Hematocrit [facility] Start: 01-03-2026 Creatinine measurement Serum Creatinine [facility] Start: 12-20-2025 Complete blood count Hemoglobin/Hematocrit [facility] Start: 12-15-2025 DIABETES SCREEN DIABETES SCREEN [facility] Start: 2025 Complete blood count Hemoglobin/Hematocrit [facility] Start: 2025 Creatinine measurement Serum Creatinine [facility] Start: 11-22-2025 Complete blood count Hemoglobin/Hematocrit [facility] Start: 11-22-2025 Creatinine measurement Serum Creatinine [facility] Start: 10-27-2025 DIABETES SCREEN DIABETES SCREEN [facility] Start: 09-15-2025 DIABETES SCREEN DIABETES SCREEN [facility] Start: 08-30-2025 BP Controlled (<130/80) BP Controlled (<130/80) [facility] Start: 08-04-2025 DIABETES SCREEN DIABETES SCREEN [facility] Start: 06-23-2025 DIABETES SCREEN DIABETES SCREEN [facility] Start: 05-14-2025 Medicare Annual Wellness (AWV) Medicare Annual Wellness (AWV) [facility] Start: 05-12-2025 DIABETES SCREEN DIABETES SCREEN [facility] Start: 04-18-2025 Hemoglobin A1c measurement Diabetes: Hemoglobin A1C [facility] Start: 04-17-2025 Screening for malignant neoplasm of breast [facility] Start: 04-02-2025 End: 04-02-2025 Patient encounter procedure 04/02/2025 11:10 AM EDT Office Visit [facility] [address] [facility] [address] [place] [address] Mar Mayo MD [address] [facility] [address] [place] [address] [facility] Start: 03-31-2025 DIABETES SCREEN DIABETES SCREEN [facility] Start: 03-28-2025 End: 03-28-2025 Follow-up encounter Hematology/Oncology Comment on above: 6 week follow up, labs, B12 & Aranesp Start: 03-28-2025 End: 03-28-2025 Patient encounter procedure 03/28/2025 1:45 PM EDT Office Visit [facility] [address] [facility] [place] [address] 6 week follow up, labs, B12 & Aranesp [facility] Comment on above: 6 week follow up, labs, B12 & Aranesp Start: 03-14-2025 End: 03-14-2025 Follow-up encounter 03/14/2025 2:30 PM EDT [facility] Hematology/Oncology [address] [facility] [place] [address] 6 week follow up, labs, B12 & Aranesp Hematology/Oncology Comment on above: 6 week follow up, labs, B12 & Aranesp Start: 03-14-2025 End: 03-14-2025 Patient encounter procedure 03/14/2025 2:15 PM EDT Office Visit [facility] [address] [facility] [place] [address] 6 week follow up, labs, B12 & Aranesp [facility] Comment on above: 6 week follow up, labs, B12 & Aranesp Start: 03-13-2025 End: 03-13-2025 Patient encounter procedure 03/13/2025 10:00 AM EDT Office Visit [facility] [address] [place] [address] Stephanie Dumont NP [address] [place] [address] [facility] Start: 03-10-2025 Influenza vaccination Influenza Vaccine (#1) [facility] Start: 03-05-2025 BP Controlled (<130/80) BP Controlled (<130/80) [facility] Start: 02-25-2025 End: 02-25-2025 Patient encounter procedure 02/25/2025 10:00 AM EDT Office Visit [facility] [address] [place] [address] [place] [address] [place] [address] [facility] Start: 02-15-2025 End: 05-17-2025 CBC W Auto Differential panel - Blood COMPLETE BLOOD COUNT AND DIFFERENTIAL Lab Routine Malaise and fatigue 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) 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 deficiency Thrombocytopenia Chronic ITP (idiopathic thrombocytopenia) (HCC) Expected: 02/15/2025, Expires: 05/17/2025 [facility] Work Phone: Comment on above: Expected: 02/15/2025, Expires: Start: 02-15-2025 End: 05-17-2025 Cobalamin (Vitamin B12) [Mass/volume] in Serum or Plasma VITAMIN B12 Lab Routine Malaise and fatigue 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) 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 deficiency Thrombocytopenia Chronic ITP (idiopathic thrombocytopenia) (HCC) Expected: 02/15/2025, Expires: 05/17/[address] [facility] Comment on above: Expected: 02/15/2025, Expires: Start: 02-15-2025 End: 05-17-2025 Comprehensive metabolic 2000 panel - Serum or Plasma COMPREHENSIVE METABOLIC PANEL Lab Routine Malaise and fatigue 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) 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 deficiency Thrombocytopenia Chronic ITP (idiopathic thrombocytopenia) (HCC) Expected: 02/15/2025, Expires: 05/17/[address] [facility] Comment on above: Expected: 02/15/2025, Expires: Start: 02-15-2025 End: 05-17-2025 Ferritin [Mass/volume] in Serum or Plasma FERRITIN Lab Routine Malaise and fatigue 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) 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 deficiency Thrombocytopenia Chronic ITP (idiopathic thrombocytopenia) (HCC) Expected: 02/15/2025, Expires: 05/17/[address] [facility] Comment on above: Expected: 02/15/2025, Expires: Start: 02-15-2025 End: 05-17-2025 Iron and Iron binding capacity panel - Serum or Plasma IRON AND TIBC Lab Routine Malaise and fatigue 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) 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 deficiency Thrombocytopenia Chronic ITP (idiopathic thrombocytopenia) (HCC) Expected: 02/15/2025, Expires: 05/17/[address] [facility] Comment on above: Expected: 02/15/2025, Expires: Start: 02-14-2025 End: 02-14-2025 Follow-up encounter Hematology/Oncology Comment on above: 6 week follow up, labs, B12 & Aranesp Start: 02-14-2025 End: 02-14-2025 Patient encounter procedure 02/14/2025 2:15 PM EDT Office Visit [facility] [address] [place] [address] [place] [address] 6 week follow up, labs, B12 & Aranesp [facility] Comment on above: 6 week follow up, labs, B12 & Aranesp Start: 02-11-2025 DIABETES SCREEN DIABETES SCREEN [facility] Start: 02-05-2025 Subsequent hospital visit by physician 02/05/2025 Hospital Encounter [facility] [place] [address] [place] [address] [place] [address] [place] [address] [facility] [place] Start: 01-31-2025 End: 01-31-2025 Follow-up encounter 01/31/2025 2:45 PM EDT Infusion Center Hematology/Oncology [address] [place] [address] 6 week follow up, labs, B12 & Aranesp Hematology/Oncology Comment on above: 6 week follow up, labs, B12 & Aranesp Start: 01-31-2025 End: 01-31-2025 Patient encounter procedure 01/31/2025 2:30 PM EDT Office Visit [facility] [place] [address] 6 week follow up, labs, B12 & Aranesp [facility] Comment on above: 6 week follow up, labs, B12 & Aranesp Start: 01-28-2025 End: 04-29-2025 CBC W Auto Differential panel - Blood COMPLETE BLOOD COUNT AND DIFFERENTIAL Lab Routine 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) Expected: 01/28/2025, Expires: 04/29/2025 [facility] Work Phone: Comment on above: Expected: 01/28/2025, Expires: Start: 01-17-2025 End: 01-17-2025 Follow-up encounter 01/17/2025 2:30 PM EDT Infusion Center Hematology/Oncology [address] [place] [address] 6 week follow up, labs, B12 & Aranesp Hematology/Oncology Comment on above: 6 week follow up, labs, B12 & Aranesp Start: 01-17-2025 End: 01-17-2025 Patient encounter procedure 01/17/2025 2:15 PM EDT Office Visit [facility] [address] [place] [address] 6 week follow up, labs, B12 & Aranesp [facility] Comment on above: 6 week follow up, labs, B12 & Aranesp Start: 01-15-2025 End: 01-15-2025 Patient encounter procedure [facility] Comment on above: Chronic kidney disease, stage 3b (CMS-HC C) (Primary Dx); Obesity (BMI 30-39.9); Tobacco dependence Start: 01-15-2025 End: 01-15-2026 XR Lumbar spine 2 or 3 Views XR lumbar spine 2 or 3 views Imaging Routine Weakness of both legs Lumbar spondylosis Expected: 01/15/2025, Expires: 01/15/2026 [facility] Work Phone: Comment on above: Expected: 01/15/2025, Expires: Start: 01-06-2025 End: 01-06-2025 Patient encounter procedure [facility] Comment on above: Essential hypertension (Primary Dx); Chronic kidney disease, stage 3b (CMS-HCC) Start: 01-03-2025 End: 01-03-2025 Follow-up encounter Hematology/Oncology Comment on above: 6 week follow up, labs, B12 & Aranesp Start: 01-03-2025 End: 01-03-2025 Patient encounter procedure 01/03/2025 1:45 PM EDT Office Visit [facility] [address] [place] [address] [place] [address] 6 week follow up, labs, B12 & Aranesp [facility] Comment on above: 6 week follow up, labs, B12 & Aranesp Start: 12-25-2024 End: 12-25-2025 Thyrotropin [Units/volume] in Serum or Plasma TSH Lab Routine Thyroid nodule Expected: 12/25/2024 (Approximate), Expires: 12/25/2025 [facility] Work Phone: Comment on above: Expected: 12/25/2024 (Approximate), Expi res: 12/25/2025 Start: 12-25-2024 End: 12-25-2025 Thyroxine (T4) free [Mass/volume] in Serum or Plasma T4, free Lab Routine Thyroid nodule Expected: 12/25/2024 (Approximate), Expires: 12/25/[address] [facility] Comment on above: Expected: 12/25/2024 (Approximate), Expi res: 12/25/2025 Start: 12-25-2024 End: 12-25-2025 Triiodothyronine (T3) Free [Mass/volume] in Serum or Plasma T3, free Lab Routine Thyroid nodule Expected: 12/25/2024 (Approximate), Expires: 12/25/2025 [facility] Comment on above: Expected: 12/25/2024 (Approximate), Expi res: 12/25/2025 Start: 12-25-2024 End: 12-25-2024 Patient encounter procedure [facility] Comment on above: Obstructive sleep apnea syndrome (Primar y Dx); Chronic kidney disease, stage 3b (CMS-HCC); Multiple lung nodules on CT; Coronary artery disease involving [place] coronary artery of [place] heart without angina pectoris ; Essential hypertension ; Obesity (BMI 30-39.9); Pre-diabetes; Chronic ITP (idiopathic thrombocytopenia) (HCC); Tobacco dependence; Thyroid nodule Start: 12-20-2024 End: 12-20-2024 ambulatory 12/20/2024 1:45 PM EDT [facility] Hematology/Oncology [address] [facility] [place] [address] Lab & Aranesp Hematology/Oncology Comment on above: Lab & Aranesp Start: 12-20-2024 End: 12-20-2024 Patient encounter procedure 12/20/2024 1:30 PM EDT Office Visit [facility] [address] [place] [address] [place] [address] Lab & Aranesp [facility] Comment on above: Lab & Aranesp Start: 12-17-2024 DIABETES SCREEN DIABETES SCREEN [facility] Start: 2024 End: 11-22-2025 Cobalamin (Vitamin B12) [Mass/volume] in Serum or Plasma VITAMIN B12 Lab Routine Stage 3b chronic kidney disease (HCC) 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) Expected: 2024 (Approximate), Expires: 11/22/[address] [facility] Comment on above: Expected: 2024 (Approximate), Expi res: 11/22/2025 Start: 2024 End: 11-22-2025 Comprehensive metabolic 2000 panel - Serum or Plasma COMPREHENSIVE METABOLIC PANEL Lab Routine Stage 3b chronic kidney disease (HCC) 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) Expected: 2024 (Approximate), Expires: 11/22/[address] [facility] Comment on above: Expected: 2024 (Approximate), Expi res: 11/22/2025 Start: 2024 End: 03-07-2025 Erythropoietin (EPO) [Units/volume] in Serum or Plasma ERYTHROPOIETIN/EPO Lab Routine Stage 3b chronic kidney disease (HCC) 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) Expected: 2024 (Approximate), Expires: 03/07/[address] [facility] Comment on above: Expected: 2024 (Approximate), Expi res: 03/07/2025 Start: 2024 End: 11-22-2025 Ferritin [Mass/volume] in Serum or Plasma FERRITIN Lab Routine Stage 3b chronic kidney disease (HCC) 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) Expected: 2024 (Approximate), Expires: 11/22/[address] [facility] Comment on above: Expected: 2024 (Approximate), Expi res: 11/22/2025 Start: 2024 End: 11-22-2025 Folate [Mass/volume] in Serum or Plasma FOLATE, SERUM Lab Routine Stage 3b chronic kidney disease (HCC) 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) Expected: 2024 (Approximate), Expires: 11/22/[address] [facility] Comment on above: Expected: 2024 (Approximate), Expi res: 11/22/2025 Start: 2024 End: 11-22-2025 Iron and Iron binding capacity panel - Serum or Plasma IRON AND TIBC Lab Routine Stage 3b chronic kidney disease (HCC) 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) Expected: 2024 (Approximate), Expires: 11/22/[address] [facility] Comment on above: Expected: 2024 (Approximate), Expi res: 11/22/2025 Start: 2024 End: 03-07-2025 RETICULOCYTE COUNT RETICULOCYTE COUNT Lab Routine Stage 3b chronic kidney disease (HCC) 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) Expected: 2024 (Approximate), Expires: 03/07/[address] [facility] Comment on above: Expected: 2024 (Approximate), Expi res: 03/07/2025 Start: 2024 End: 2024 ambulatory 2024 1:45 PM EDT 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 Thrombocytopenia Expected: 12/02/2024 (Approximate), Expires: 11/29/2025 [facility] Work Phone: Comment on above: Expected: 12/02/2024 (Approximate), Expi res: 11/29/2025 Start: 12-02-2024 End: 11-29-2025 Comprehensive metabolic 2000 panel - Serum or Plasma Comprehensive Metabolic Panel Lab Routine 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 Expected: 12/02/2024 (Approximate), Expires: 11/29/2025 [facility] Work Phone: Comment on above: Expected: 12/02/2024 (Approximate), Expi res: 11/29/2025 Start: 11-26-2024 End: 11-26-2025 aPTT in Platelet poor plasma by Coagulation assay aPTT Lab Routine Thrombocytopenia Expected: 11/26/2024 (Approximate), Expires: 11/26/2025 [facility] Work Phone: Comment on above: Expected: 11/26/2024 (Approximate), Expi res: 11/26/2025 Start: 11-26-2024 End: 05-29-2025 CT Chest WO contrast CT chest wo IV contrast Imaging Routine Multiple lung nodules on CT Expected: 11/26/2024, Expires: 05/29/2025 [facility] Work Phone: Comment on above: Expected: 11/26/2024, Expires: Start: 11-26-2024 End: 11-26-2025 Prothrombin time (PT) Protime-INR Lab Routine Thrombocytopenia Expected: 11/26/2024 (Approximate), Expires: 11/26/2025 [facility] Service Area Work Phone: Comment on above: Expected: 11/26/2024 (Approximate), Expi res: 11/26/2025 Start: 11-22-2024 End: 11-22-2024 Follow-up encounter 11/22/2024 2:00 PM EDT Visit (SP) Office Hematology/Oncology [address] [place] [address] Rinku Ramsey MD [address] [place] [address] 6 week follow up and labs abd B 12 inj Hematology/Oncology Comment on above: 6 week follow up and labs abd B 12 inj Start: 11-22-2024 End: 11-22-2024 Patient encounter procedure 11/22/2024 1:45 PM EDT Office Visit [facility] [address] [place] [address] 6 week follow up and labs abd B 12 inj [facility] Comment on above: 6 week follow up and labs abd B 12 inj Start: 11-21-2024 End: 11-21-2024 Patient encounter procedure 11/21/2024 10:30 AM EDT Office Visit [facility] [address] [place] [phone] Stephanie Dumont NP [address] [place] [id number] [facility] Start: 11-14-2024 COVID-19 Vaccine () COVID-19 Vaccine ( season) [facility] Start: 11-14-2024 Covid-19 Vaccine (7 - Moderna risk season) Covid-19 Vaccine (7 - Moderna risk season) [facility] Start: 11-12-2024 End: 11-12-2024 Patient encounter procedure 11/12/2024 11:00 AM EDT [facility] [address] [place] [address] Stephanie Dumont, SEMICOND[employer]CTOR EQUIPMENT TECHNICIAN [address] [place] [address] [facility] Start: 10-28-2024 DIABETES SCREEN DIABETES SCREEN [facility] Start: 10-11-2024 End: 10-11-2024 Nursing evaluation of patient and report 10/11/2024 11:00 AM EDT Nurse Visit Hematology/Oncology [address] [place] [address] Debora Gaona Nurse [place] [address] [place] [address] 6 week follow up labs B12 inj(seeing JR too) Hematology/Oncology Comment on above: 6 week follow up labs B12 inj(seeing JR too) Start: 10-11-2024 End: 10-11-2024 Follow-up encounter 10/11/2024 10:30 AM EDT Visit (SP) Office Hematology/Oncology [address] [place] [address] Li Frank APRN.ROUTE SALES MANAGER [address] [place] [address] 6 week follow up and labs abd B 12 inj Hematology/Oncology Comment on above: 6 week follow up and labs abd B 12 inj Start: 10-11-2024 End: 10-11-2024 Patient encounter procedure 10/11/2024 10:15 AM EDT Office Visit [facility] [address] [place] [address] 6 week follow up and labs abd B 12 inj [facility] Comment on above: 6 week follow up and labs abd B 12 inj Start: 09-25-2024 End: 09-25-2024 Patient encounter procedure 09/25/2024 10:20 AM EDT Office Visit [facility] [address] [place] [address] Mar Mayo MD [address] [place] [address] [facility] Start: 09-16-2024 DIABETES SCREEN DIABETES SCREEN [facility] Start: 08-22-2024 End: 08-22-2024 Nursing evaluation of patient and report 08/22/2024 11:00 AM EST Nurse Visit Hematology/Oncology [address] [place] [address] Debora Gaona Nurse [place] [address] [place] [address] 6 week follow up and labs abd B 12 inj-sees JR-date needs changed orders signed Hematology/Oncology Comment on above: 6 week follow up and labs abd B 12 inj-s ees JR-date needs changed orders signed Start: 08-22-2024 End: 08-22-2024 Follow-up encounter 08/22/2024 10:30 AM EST Visit (SP) Office Hematology/Oncology [address] [place] [address] Li Frank APRN.ROUTE SALES MANAGER [address] [place] [address] 6 week follow up and labs abd B 12 inj Hematology/Oncology Comment on above: 6 week follow up and labs abd B 12 inj Start: 08-22-2024 End: 08-22-2024 Patient encounter procedure 08/22/2024 10:15 AM EST Office Visit [facility] [address] [place] [address] 6 week follow up and labs abd B 12 inj [facility] Comment on above: 6 week follow up and labs abd B 12 inj Start: 08-15-2024 End: 08-15-2024 Patient encounter procedure [facility] Comment on above: Systemic lupus erythematosus, unspecifie d (CMS/HCC) (Primary Dx); Qualitative platelet defects (CMS/HCC); Chronic kidney disease, stage 3a (HCC) (CMS/HCC); Immune thrombocytopenic purpura (CMS/HCC); Secondary pulmonary arterial hypertension (CMS/HCC); Coronary artery disease involving [place] coronary artery of [place] heart without angina pectoris (CMS/HCC); Essential hypertension (CMS/HCC); PAH (pulmonary artery hypertension) (CMS/HCC); Obesity (BMI 30-39.9); Pre-diabetes; Tobacco dependence Start: 07-12-2024 Covid-19 Vaccine () Covid-19 Vaccine () [facility] Start: 07-11-2024 End: 07-11-2024 Nursing evaluation of patient and report 07/11/2024 11:30 AM EST Nurse Visit Hematology/Oncology [address] [place] [address] Debora Gaona Nurse Clarence [address] [place] [address] 6 week follow up and labs abd B 12 inj (seeing LOULOU too) Hematology/Oncology Comment on above: 6 week follow up and labs abd B 12 inj ( seeing LOULOU too) Start: 07-11-2024 End: 07-11-2024 Follow-up encounter 07/11/2024 11:00 AM EST Visit (SP) Office Hematology/Oncology [address] [place] [address] Li Frank APRN.ROUTE SALES MANAGER [address] [place] [address] 6 week follow up and labs abd B 12 inj Hematology/Oncology Comment on above: 6 week follow up and labs abd B 12 inj Start: 07-11-2024 End: 07-11-2024 Patient encounter procedure 07/11/2024 10:45 AM EST Office Visit [facility] [address] [place] [address] 6 week follow up and labs abd B 12 inj [facility] Comment on above: 6 week follow up and labs abd B 12 inj Start: 07-10-2024 Advance Directive Discussion Advance Directive Discussion [facility] Start: 07-10-2024 Medicare Advantage Annual Wellness Visit Medicare Advantage Annual Wellness Visit [facility] Start: 05-30-2024 End: 05-30-2024 Nursing evaluation of patient and report 05/30/2024 11:00 AM EST Nurse Visit Hematology/Oncology [address] [place] [address] [place] [address] Debora Gaona Nurse Cla[place] [address] [place] [address] 6 week follow up and labs abd B 12 inj (seeing LOULOU too) Hematology/Oncology Comment on above: 6 week follow up and labs abd B 12 inj ( seeing LOULOU too) Start: 05-30-2024 End: 05-30-2024 Follow-up encounter 05/30/2024 10:45 AM EST Visit (SP) Office Hematology/Oncology [address] [place] [address] Rinku Ramsey MD [address] [place] [address] 6 week follow up and labs abd B 12 inj Hematology/Oncology Comment on above: 6 week follow up and labs abd B 12 inj Start: 05-30-2024 End: 05-30-2024 Patient encounter procedure 05/30/2024 10:30 AM EST Office Visit [facility] [address] [place] [address] [place] [address] 6 week follow up and labs abd B 12 inj [facility] Comment on above: 6 week follow up and labs abd B 12 inj Start: 05-28-2024 End: 05-28-2025 CT Chest WO contrast CT chest wo IV contrast Imaging Routine Multiple lung nodules on CT Expected: 05/28/2024, Expires: 05/28/2025 [facility] Work Phone: Comment on above: Expected: 05/28/2024, Expires: Start: 05-19-2024 Screening for malignant neoplasm of breast Mammogram [facility] Start: 05-15-2024 End: 05-15-2024 Patient encounter procedure 05/15/2024 2:20 PM EST Office Visit [facility] [address] [facility] [address] [place] [phone] Mar Mayo MD [address] [facility] [address] [place] [address] [facility] Start: 05-15-2024 End: 05-15-2025 Creatinine [Mass/volume] in Serum or Plasma Creatinine Lab Routine Multiple lung nodules on CT Expected: 05/15/2024 (Approximate), Expires: 05/15/2025 [facility] Work Phone: Comment on above: Expected: 05/15/2024 (Approximate), Expi res: 05/15/2025 Start: 05-14-2024 End: 05-14-2025 DXA Skeletal system Views for bone density DEXA bone density Imaging Routine Age-related osteoporosis without current pathological fracture ([facility]) Expected: 05/14/2024 (Approximate), Expires: 05/14/2025 [facility] Work Phone: Comment on above: Expected: 05/14/2024 (Approximate), Expi res: 05/14/2025 Start: 05-14-2024 End: 05-14-2024 Patient encounter procedure 05/14/2024 10:30 AM EST Office Visit [facility] [address] [place] [address] Stephanie Dumont NP [address] [place] [address] [facility] Start: 05-13-2024 End: 05-13-2024 Patient encounter procedure 05/13/2024 10:45 AM EST Office Visit [facility] [address] [place] [id number] Jr. Herson Avalos DO [address] [facility] [address] [place] [address] [facility] Start: 05-09-2024 Influenza vaccination Influenza Vaccine (#1) [facility] Comment on above: Postponed from 03/10/2024 (Patient Does Not Have Time) Start: 05-08-2024 Medicare Annual Wellness (AWV) Medicare Annual Wellness (AWV) [facility] Start: 05-07-2024 End: 05-07-2025 Creatinine [Mass/volume] in Serum or Plasma Creatinine Lab Routine Multiple lung nodules on CT Expected: 05/07/2024 (Approximate), Expires: 05/07/[address] [facility] Comment on above: Expected: 05/07/2024 (Approximate), Expi res: 05/07/2025 Start: 05-07-2024 End: 05-07-2025 CT Chest W contrast IV CT chest w IV contrast Imaging Routine Multiple lung nodules on CT Expected: 05/07/2024 (Approximate), Expires: 05/07/[address] [facility] Work Phone: Comment on above: Expected: 05/07/2024 (Approximate), Expi res: 05/07/2025 Start: 04-29-2024 End: 04-29-2024 Patient encounter procedure 04/29/2024 10:30 AM EDT Office Visit [facility] [address] [place] [phone] Jr. Herson Avalos, DO [address] [facility] [address] [place] [address] [facility] Start: 04-18-2024 End: 04-18-2024 Nursing evaluation of patient and report Hematology/Oncology Comment on above: 6 week follow up and labs abd B 12 inj 6 week follow up and labs abd B 12 inj (seeing LOULOU too) Start: 04-18-2024 End: 04-18-2024 Follow-up encounter 04/18/2024 11:15 AM EDT Visit (SP) Office Hematology/Oncology [address] [place] [address] Rinku Ramsey MD [address] [place] [address] 6 week follow up and labs abd B 12 inj Hematology/Oncology Comment on above: 6 week follow up and labs abd B 12 inj Start: 04-18-2024 End: 04-18-2024 Patient encounter procedure 04/18/2024 11:00 AM EDT Office Visit [facility] [address] [place] [address] 6 week follow up and labs abd B 12 inj [facility] Comment on above: 6 week follow up and labs abd B 12 inj Start: 04-16-2024 End: 03-05-2025 CBC W Auto Differential panel - Blood COMPLETE BLOOD COUNT AND DIFFERENTIAL Lab Routine 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 deficiency Chronic ITP (idiopathic thrombocytopenia) (HCC) Expected: 04/16/2024 (Approximate), Expires: 03/05/[address] [facility] Comment on above: Expected: 04/16/2024 (Approximate), Expi res: 03/05/2025 Start: 04-16-2024 End: 03-05-2025 Cobalamin (Vitamin B12) [Mass/volume] in Serum or Plasma VITAMIN B12 Lab Routine 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 deficiency Expected: 04/16/2024 (Approximate), Expires: 03/05/[address] [facility] Comment on above: Expected: 04/16/2024 (Approximate), Expi res: 03/05/2025 Start: 04-16-2024 End: 03-05-2025 Comprehensive metabolic 2000 panel - Serum or Plasma COMPREHENSIVE METABOLIC PANEL Lab Routine 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 deficiency Expected: 04/16/2024 (Approximate), Expires: 03/05/[address] [facility] Comment on above: Expected: 04/16/2024 (Approximate), Expi res: 03/05/2025 Start: 04-16-2024 End: 07-16-2024 Erythropoietin (EPO) [Units/volume] in Serum or Plasma ERYTHROPOIETIN/EPO Lab Routine 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 deficiency Expected: 04/16/2024 (Approximate), Expires: 07/16/2024 [facility] Work Phone: Comment on above: Expected: 04/16/2024 (Approximate), Expi res: 07/16/2024 Start: 04-16-2024 End: 03-05-2025 Ferritin [Mass/volume] in Serum or Plasma FERRITIN Lab Routine 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 deficiency Expected: 04/16/2024 (Approximate), Expires: 03/05/[address] [facility] Comment on above: Expected: 04/16/2024 (Approximate), Expi res: 03/05/2025 Start: 04-16-2024 End: 03-05-2025 Folate [Mass/volume] in Serum or Plasma FOLATE, SERUM Lab Routine 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 deficiency Expected: 04/16/2024 (Approximate), Expires: 03/05/[address] [facility] Comment on above: Expected: 04/16/2024 (Approximate), Expi res: 03/05/2025 Start: 04-16-2024 End: 03-05-2025 Iron and Iron binding capacity panel - Serum or Plasma IRON AND TIBC Lab Routine 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 deficiency Expected: 04/16/2024 (Approximate), Expires: 03/05/[address] [facility] Comment on above: Expected: 04/16/2024 (Approximate), Expi res: 03/05/2025 Start: 04-16-2024 End: 07-16-2024 RETICULOCYTE COUNT RETICULOCYTE COUNT Lab Routine 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 deficiency Expected: 04/16/2024 (Approximate), Expires: 07/16/[address] [facility] Comment on above: Expected: 04/16/2024 (Approximate), Expi res: 07/16/2024 Start: 04-09-2024 End: 04-09-2025 C reactive protein [Mass/volume] in Serum or Plasma C-reactive protein Lab Routine Left leg pain Expected: 04/09/2024 (Approximate), Expires: 04/09/2025 [facility] Comment on above: Expected: 04/09/2024 (Approximate), Expi res: 04/09/2025 Start: 04-09-2024 End: 04-09-2025 Erythrocyte sedimentation rate Sedimentation rate, automated Lab Routine Left leg pain Expected: 04/09/2024 (Approximate), Expires: 04/09/[address] [facility] Comment on above: Expected: 04/09/2024 (Approximate), Expi res: 04/09/2025 Start: 04-09-2024 End: 04-09-2025 NM Whole body Bone 3 Phase Views NM bone 3 phase Imaging Routine Left leg pain Expected: 04/09/2024 (Approximate), Expires: 04/09/[address] [facility] Comment on above: Expected: 04/09/2024 (Approximate), Expi res: 04/09/2025 Start: 04-09-2024 End: 04-09-2024 Patient encounter procedure 04/09/2024 10:15 AM EDT Office Visit [facility] [address] [place] [phone] Blaise Alex PA [address] [facility] [address] [place] [address] [facility] Start: 04-05-2024 End: 04-05-2025 Thyrotropin [Units/volume] in Serum or Plasma TSH Lab Routine Disease of thyroid gland ([facility]/HCC) Expected: 04/05/2024 (Approximate), Expires: 04/05/[address] [facility] Work Phone: Comment on above: Expected: 04/05/2024 (Approximate), Expi res: 04/05/2025 Start: 04-05-2024 End: 04-05-2025 Thyroxine (T4) free [Mass/volume] in Serum or Plasma T4, free Lab Routine Disease of thyroid gland (CMS/HCC) Expected: 04/05/2024 (Approximate), Expires: 04/05/[address] [facility] Comment on above: Expected: 04/05/2024 (Approximate), Expi res: 04/05/2025 Start: 04-05-2024 End: 04-05-2025 Triiodothyronine (T3) Free [Mass/volume] in Serum or Plasma T3, free Lab Routine Disease of thyroid gland (CMS/HCC) Expected: 04/05/2024 (Approximate), Expires: 04/05/[address] [facility] Comment on above: Expected: 04/05/2024 (Approximate), Expi res: 04/05/2025 Start: 04-04-2024 End: 04-04-2025 Hemoglobin A1c/Hemoglobin.total in Blood Hemoglobin A1c Lab Routine Elevated glucose level Expected: 04/04/2024 (Approximate), Expires: 04/04/[address] [facility] Work Phone: Comment on above: Expected: 04/04/2024 (Approximate), Expi res: 04/04/2025 Start: 04-04-2024 End: 06-04-2025 MG Breast - bilateral Screening Bilateral screening mammogram Imaging Routine Encounter for screening mammogram for malignant neoplasm of breast Expected: 04/04/2024 (Approximate), Expires: 06/04/[address] [facility] Comment on above: Expected: 04/04/2024 (Approximate), Expi res: 06/04/2025 Start: 04-04-2024 End: 04-04-2025 Microalbumin/Creatinine panel in random Urine Microalbumin / creatinine, urine ratio Lab Routine Essential hypertension (CMS/HCC) Expected: 04/04/2024 (Approximate), Expires: 04/04/[address] [facility] Comment on above: Expected: 04/04/2024 (Approximate), Expi res: 04/04/2025 Start: 04-04-2024 End: 04-04-2026 NM Heart Perfusion W adenosine and W radionuclide IV STRESS NUCLEAR MEDICINE [facility] Cardiac Nuclear Medicine Routine Essential hypertension (CMS/HCC) Coronary artery disease involving [place] coronary artery of [place] heart without angina pectoris (CMS/HCC) Other chest pain Expected: 04/04/2024 (Approximate), Expires: 04/04/[address] [facility] Comment on above: Expected: 04/04/2024 (Approximate), Expi res: 04/04/2026 Start: 04-04-2024 End: 04-04-2025 Thyrotropin [Units/volume] in Serum or Plasma TSH Lab Routine Disease of thyroid gland (CMS/HCC) Expected: 04/04/2024 (Approximate), Expires: 04/04/[address] [facility] Comment on above: Expected: 04/04/2024 (Approximate), Expi res: 04/04/2025 Start: 04-04-2024 End: 04-04-2025 Thyroxine (T4) free [Mass/volume] in Serum or Plasma T4, free Lab Routine Disease of thyroid gland (CMS/HCC) Expected: 04/04/2024 (Approximate), Expires: 04/04/[address] [facility] Comment on above: Expected: 04/04/2024 (Approximate), Expi res: 04/04/2025 Start: 04-04-2024 End: 04-04-2025 Urinalysis complete panel - Urine Urinalysis with reflex microscopic (clean catch) Lab Routine Essential hypertension (CMS/HCC) Expected: 04/04/2024 (Approximate), Expires: 04/04/[address] [facility] Comment on above: Expected: 04/04/2024 (Approximate), Expi res: 04/04/2025 Start: 04-04-2024 End: 04-04-2024 Patient encounter procedure 04/04/2024 9:40 AM EDT Office Visit [facility] [address] [place] [address] Stephanie Dumont NP [address] [place] [address] [facility] Start: 03-15-2024 End: 02-01-2025 CBC W Auto Differential panel - Blood COMPLETE BLOOD COUNT AND DIFFERENTIAL Lab Routine Chronic ITP (idiopathic thrombocytopenia) (HCC) Essential hypertension Obstructive sleep apnea syndrome Stage 3b chronic kidney disease (HCC) Expected: 03/15/2024 (Approximate), Expires: 02/01/[address] [facility] Comment on above: Expected: 03/15/2024 (Approximate), Expi res: 02/01/2025 Start: 03-15-2024 End: 02-01-2025 Comprehensive metabolic 2000 panel - Serum or Plasma COMPREHENSIVE METABOLIC PANEL Lab Routine Chronic ITP (idiopathic thrombocytopenia) (HCC) Essential hypertension Obstructive sleep apnea syndrome Stage 3b chronic kidney disease (HCC) Expected: 03/15/2024 (Approximate), Expires: 02/01/[address] [facility] Comment on above: Expected: 03/15/2024 (Approximate), Expi res: 02/01/2025 Start: 03-15-2024 End: 02-01-2025 Lactate dehydrogenase [Enzymatic activity/volume] in Serum or Plasma LACTATE DEHYDROGENASE Lab Routine Chronic ITP (idiopathic thrombocytopenia) (HCC) Essential hypertension Obstructive sleep apnea syndrome Stage 3b chronic kidney disease (HCC) Expected: 03/15/2024 (Approximate), Expires: 02/01/2025 [facility] Work Phone: Comment on above: Expected: 03/15/2024 (Approximate), Expi res: 02/01/2025 Start: 03-15-2024 End: 03-15-2024 Follow-up encounter 03/15/2024 1:15 PM EDT Visit (SP) Office Hematology/Oncology [address] [place] [address] Rinku Ramsey MD [address] [place] [address] 6 week follow up and labs Hematology/Oncology Comment on above: 6 week follow up and labs Start: 03-15-2024 End: 03-15-2024 Patient encounter procedure 03/15/2024 1:00 PM EDT Office Visit [facility] [address] [place] [address] 6 week follow up and labs [facility] Comment on above: 6 week follow up and labs Start: 03-10-2024 Covid-19 Vaccine ( season) Covid-19 Vaccine ( season) [facility] Start: 03-10-2024 Influenza vaccination Influenza Vaccine (#1) [facility] Start: 03-04-2024 End: 03-04-2024 Patient encounter procedure [facility] Comment on above: Arrived Start: 02-26-2024 End: 02-25-2026 Echocardiogram 2D complete Echocardiogram 2D complete Echocardiography Routine Calcification of aortic valve Coronary artery disease involving [place] coronary artery of [place] heart without angina pectoris (CMS/HCC) Expected: 02/26/2024 (Approximate), Expires: 02/25/2026 [facility] Comment on above: Expected: 02/26/2024 (Approximate), Expi res: 02/25/2026 Start: 02-26-2024 End: 02-25-2025 US Thyroid gland US thyroid Imaging Routine Thyroid nodule (CMS/HCC) Expected: 02/26/2024 (Approximate), Expires: 02/25/2025 [facility] Work Phone: Comment on above: Expected: 02/26/2024 (Approximate), Expi res: 02/25/2025 Start: 02-06-2024 End: 02-06-2024 Patient encounter procedure 02/06/2024 2:15 PM EDT Office Visit [facility] [address] [place] [address] [place] [address] [place] [address] [facility] Start: 02-02-2024 End: 02-02-2024 Follow-up encounter 02/02/2024 1:30 PM EDT Visit (SP) Office Hematology/Oncology [address] [place] [address] [place] [address] Rinku Ramsey MD [address] [place] [address] 6 week follow up and labs Hematology/Oncology Comment on above: 6 week follow up and labs Start: 02-02-2024 End: 02-02-2024 Patient encounter procedure [facility] Comment on above: 11/28-Lv to schedule appts for outsid e lab orders & EKG from Dr Royal-already scanned & entered 6 week follow up and labs Start: 01-05-2024 End: 01-05-2024 Follow-up encounter 01/05/2024 11:45 AM EDT Visit (SP) Office Hematology/Oncology [address] [address] Rinku Ramsey MD [address] [place] [address] 6 week follow up and labs Hematology/Oncology Comment on above: 6 week follow up and labs Start: 01-05-2024 End: 01-05-2024 Patient encounter procedure [facility] Comment on above: 6 week follow up and labs 11/28-Lvm to sched ule appts for outside lab orders & EKG from Dr Royal-already scanned & entered Start: 01-02-2024 End: 01-02-2024 Patient encounter procedure 01/02/2024 1:15 PM EDT Office Visit [facility] [address] [place] [address] [place] [address] [place] [address] [facility] Start: 12-18-2023 End: 12-18-2023 Tmpp mastoidect ntc/rcnsted canal wall ocr Tympanomastoidectomy Cholesteatoma of left ear 12/18/2023 7:45 AM EDT [facility] OR Start: 11-14-2023 End: 11-13-2024 Request for Pre-Admission Testing Visit Request for Pre-Admission Testing Visit Procedures Routine Cholesteatoma of left ear Expected: 11/14/2023 (Approximate), Expires: 11/13/2024 [facility] Service [facility] Work Phone: Comment on above: Expected: 11/14/2023 (Approximate), Expi res: 11/13/2024 Start: 10-13-2023 End: 01-12-2024 CBC W Auto Differential panel - Blood CBC + DIFF Lab Routine Chronic ITP (idiopathic thrombocytopenia) (HCC) Expected: 10/13/2023, Expires: 01/12/2024 [facility] Work Phone: Comment on above: Expected: 10/13/2023, Expires: Start: 10-13-2023 End: 01-12-2024 Comprehensive metabolic 2000 panel - Serum or Plasma COMP METABOLIC PANEL Lab Routine Chronic ITP (idiopathic thrombocytopenia) (HCC) Expected: 10/13/2023, Expires: 01/12/2024 [facility] Work Phone: Comment on above: Expected: 10/13/2023, Expires: Start: 09-24-2023 COVID-19 Vaccine () COVID-19 Vaccine () [facility] Start: 08-23-2023 End: 08-23-2023 Patient encounter procedure 08/23/2023 10:00 AM EST Office Visit [facility] [address] [facility] [address] [place] [address] Mar Mayo MD [address] [facility] [address] [place] [address] [facility] Start: 07-25-2023 Colonoscopy COLONOSCOPY [facility] Start: 07-25-2023 COLORECTAL CANCER SCREENING COLORECTAL CANCER SCREENING [facility] Start: 07-25-2023 Screening for malignant neoplasm of colon [facility] Start: 07-21-2023 Covid-19 Vaccine () Covid-19 Vaccine () [facility] Start: 07-17-2023 End: 10-16-2023 CBC W Auto Differential panel - Blood CBC + DIFF Lab Routine Chronic ITP (idiopathic thrombocytopenia) (HCC) Essential hypertension Expected: 07/17/2023 (Approximate), Expires: 10/16/2023 [facility] Work Phone: Comment on above: Expected: 07/17/2023 (Approximate), Expi res: 10/16/2023 Start: 07-17-2023 End: 10-16-2023 Comprehensive metabolic 2000 panel - Serum or Plasma COMP METABOLIC PANEL Lab Routine Chronic ITP (idiopathic thrombocytopenia) (HCC) Essential hypertension Expected: 07/17/2023 (Approximate), Expires: 10/16/2023 [facility] Work Phone: Comment on above: Expected: 07/17/2023 (Approximate), Expi res: 10/16/2023 Start: 07-10-2023 Advance Directive Discussion Advance Directive Discussion [facility] Start: 07-10-2023 Behavioral Health Screening Behavioral Health Screening [facility] Start: 07-10-2023 Depression Assessment Depression Assessment [facility] Start: 04-20-2023 End: 04-19-2024 CBC W Auto Differential panel - Blood CBC + DIFF Lab Routine Chronic ITP (idiopathic thrombocytopenia) (HCC) Expected: 04/20/2023 (Approximate), Expires: 04/19/2024 [facility] Work Phone: Comment on above: Expected: 04/20/2023 (Approximate), Expi res: 04/19/2024 Start: 04-20-2023 End: 04-19-2024 Comprehensive metabolic 2000 panel - Serum or Plasma COMP METABOLIC PANEL Lab Routine Chronic ITP (idiopathic thrombocytopenia) (HCC) Expected: 04/20/2023 (Approximate), Expires: 04/19/2024 [facility] Work Phone: Comment on above: Expected: 04/20/2023 (Approximate), Expi res: 04/19/2024 Start: 04-20-2023 End: 04-19-2024 Lactate dehydrogenase [Enzymatic activity/volume] in Serum or Plasma LD LACTATE DEHYDRO Lab Routine Chronic ITP (idiopathic thrombocytopenia) (HCC) Expected: 04/20/2023 (Approximate), Expires: 04/19/2024 [facility] Work Phone: Comment on above: Expected: 04/20/2023 (Approximate), Expi res: 04/19/2024 Start: 03-10-2023 Covid-19 Vaccine ( season) Covid-19 Vaccine ( season) [facility] Start: 03-10-2023 Influenza vaccination [facility] Start: 02-11-2023 Adult depression screening assessment DEPRESSION SCREENING [facility] Start: 08-05-2022 Adult depression screening assessment DEPRESSION SCREENING [facility] Start: 08-04-2022 End: 06-23-2023 CBC W Auto Differential panel - Blood CBC + DIFF Lab Routine Chronic ITP (idiopathic thrombocytopenia) (HCC) Expected: 08/04/2022 (Approximate), Expires: 06/23/2023 [facility] Work Phone: Comment on above: Expected: 08/04/2022 (Approximate), Expi res: 06/23/2023 Start: 08-04-2022 End: 06-23-2023 Comprehensive metabolic 2000 panel - Serum or Plasma COMP METABOLIC PANEL Lab Routine Chronic ITP (idiopathic thrombocytopenia) (HCC) Expected: 08/04/2022 (Approximate), Expires: 06/23/2023 [facility] Work Phone: Comment on above: Expected: 08/04/2022 (Approximate), Expi res: 06/23/2023 Start: 08-04-2022 End: 06-23-2023 Lactate dehydrogenase [Enzymatic activity/volume] in Serum or Plasma LD LACTATE DEHYDRO Lab Routine Chronic ITP (idiopathic thrombocytopenia) (HCC) Expected: 08/04/2022 (Approximate), Expires: 06/23/2023 [facility] Work Phone: Comment on above: Expected: 08/04/2022 (Approximate), Expi res: 06/23/2023 Start: 08-04-2022 End: 10-04-2022 Nuclear Ab [Presence] in Serum by Immunoassay RAAD PANEL BLOOD SCRN Lab Routine Systemic lupus erythematosus, unspecified SLE type, unspecified organ involvement status (HCC) Expected: 08/04/2022 (Approximate), Expires: 10/04/2022 [facility] Work Phone: Comment on above: Expected: 08/04/2022 (Approximate), Expi res: 10/04/2022 Start: 07-10-2022 ADVANCE DIRECTIVE DISCUSSION ADVANCE DIRECTIVE DISCUSSION [facility] Start: 07-10-2022 DEPRESSION ASSESSMENT DEPRESSION ASSESSMENT [facility] Start: 06-08-2022 COVID-19 VACCINE (5 - Booster for Moderna series) COVID-19 VACCINE (5 - Booster for Moderna series) [facility] Start: 04-02-2022 COVID-19 VACCINE (5 - Booster for Moderna series) COVID-19 VACCINE (5 - Booster for Moderna series) [facility] Start: 04-02-2022 COVID-19 VACCINE (5 - Moderna risk series) COVID-19 VACCINE (5 - Moderna risk series) [facility] Start: 03-30-2022 Lipid 1996 panel - Serum or Plasma Lipid Screening [facility] Start: 03-30-2022 Lipid panel Lipid Screening [facility] Start: 03-30-2022 LIPID SCREEN LIPID SCREEN [facility] Start: 03-25-2022 End: 05-25-2022 CBC W Auto Differential panel - Blood CBC + DIFF Lab Routine Chronic ITP (idiopathic thrombocytopenia) (HCC) Essential hypertension Obstructive sleep apnea syndrome Systemic lupus erythematosus, unspecified SLE type, unspecified organ involvement status (HCC) Expected: 03/25/2022, Expires: 05/25/2022 [facility] Work Phone: Comment on above: Expected: 03/25/2022, Expires: Start: 03-25-2022 End: 05-25-2022 Comprehensive metabolic 2000 panel - Serum or Plasma COMP METABOLIC PANEL Lab Routine Chronic ITP (idiopathic thrombocytopenia) (HCC) Essential hypertension Obstructive sleep apnea syndrome Systemic lupus erythematosus, unspecified SLE type, unspecified organ involvement status (HCC) Expected: 03/25/2022, Expires: 05/25/2022 [facility] Work Phone: Comment on above: Expected: 03/25/2022, Expires: Start: 03-10-2022 Influenza vaccination INFLUENZA (#1) [facility] Start: 01-28-2022 End: 03-30-2022 CBC W Auto Differential panel - Blood CBC + DIFF Lab Routine Hypertension, unspecified type Chronic ITP (idiopathic thrombocytopenia) (HCC) Essential hypertension Obstructive sleep apnea syndrome Lung nodules Systemic lupus erythematosus, unspecified SLE type, unspecified organ involvement status (HCC) Expected: 01/28/2022, Expires: 03/30/2022 [facility] Work Phone: Comment on above: Expected: 01/28/2022, Expires: Start: 01-28-2022 End: 03-30-2022 Comprehensive metabolic 2000 panel - Serum or Plasma COMP METABOLIC PANEL Lab Routine Hypertension, unspecified type Chronic ITP (idiopathic thrombocytopenia) (HCC) Essential hypertension Obstructive sleep apnea syndrome Lung nodules Systemic lupus erythematosus, unspecified SLE type, unspecified organ involvement status (HCC) Expected: 01/28/2022, Expires: 03/30/2022 [facility] Work Phone: Comment on above: Expected: 01/28/2022, Expires: Start: 01-28-2022 End: 03-30-2022 Lactate dehydrogenase [Enzymatic activity/volume] in Serum or Plasma LD LACTATE DEHYDRO Lab Routine Hypertension, unspecified type Chronic ITP (idiopathic thrombocytopenia) ([facility]) Essential hypertension Obstructive sleep apnea syndrome Lung nodules Systemic lupus erythematosus, unspecified SLE type, unspecified organ involvement status (HCC) Expected: 01/28/2022, Expires: 03/30/2022 [facility] Work Phone: Comment on above: Expected: 01/28/2022, Expires: Start: 12-09-2021 End: 10-28-2022 CBC W Auto Differential panel - Blood CBC + DIFF Lab Routine Chronic ITP (idiopathic thrombocytopenia) (HCC) Expected: 12/09/2021 (Approximate), Expires: 10/28/2022 [facility] Work Phone: Comment on above: Expected: 12/09/2021 (Approximate), Expi res: 10/28/2022 Start: 12-09-2021 End: 10-28-2022 Comprehensive metabolic 2000 panel - Serum or Plasma COMP METABOLIC PANEL Lab Routine Chronic ITP (idiopathic thrombocytopenia) (HCC) Expected: 12/09/2021 (Approximate), Expires: 10/28/2022 [facility] Work Phone: Comment on above: Expected: 12/09/2021 (Approximate), Expi res: 10/28/2022 Start: 12-09-2021 End: 10-28-2022 Lactate dehydrogenase [Enzymatic activity/volume] in Serum or Plasma LD LACTATE DEHYDRO Lab Routine Chronic ITP (idiopathic thrombocytopenia) (HCC) Expected: 12/09/2021 (Approximate), Expires: 10/28/2022 [facility] Work Phone: Comment on above: Expected: 12/09/2021 (Approximate), Expi res: 10/28/2022 Start: 09-14-2021 COVID-19 VACCINE (4 - Booster for Moderna series) COVID-19 VACCINE (4 - Booster for Moderna series) [facility] Start: 07-10-2021 ADVANCE DIRECTIVE DISCUSSION ADVANCE DIRECTIVE DISCUSSION [facility] Start: 07-10-2021 DEPRESSION ASSESSMENT DEPRESSION ASSESSMENT [facility] Start: 02-17-2018 Screening for malignant neoplasm of breast Mammogram Screening [facility] Start: 12-07-2015 BONE DENSITY BONE DENSITY [facility] Start: 12-07-2015 Bone Density Screening Bone Density Screening [facility] Start: 12-07-2015 Screening for osteoporosis [facility] Start: 2010 RSV High Risk: (Elderly (60+) or Population) (1 - Risk 60-74 years 1-dose series) RSV High Risk: (Elderly (60+) or Population) (1 - Risk 60-74 years 1-dose series) [facility] Start: 2010 RSV patients and/or patients aged 60+ years (1 - 1-dose 60+ series) RSV patients and/or patients aged 60+ years (1 - 1-dose 60+ series) [facility] Start: 2010 RSV Vaccine (1 - 1-dose 60+ series) RSV Vaccine (1 - 1-dose 60+ series) [facility] Start: 2010 RSV Vaccine (1 - Risk 60-74 years 1-dose series) RSV Vaccine (1 - Risk 60-74 years 1-dose series) [facility] Start: 2000 SHINGRIX VACCINE (1 of 2) SHINGRIX VACCINE (1 of 2) [facility] Start: 2000 Zoster Vaccines (1 of 2) Zoster Vaccines (1 of 2) [facility] Start: 12-07-1995 COLOGUARD (FIT-DNA) COLOGUARD (FIT-DNA) [facility] Start: 12-07-1995 Colonoscopy COLONOSCOPY [facility] Start: 12-07-1995 COLORECTAL CANCER SCREENING COLORECTAL CANCER SCREENING [facility] Start: 12-07-[address] COLONOGRAPHY [facility] Start: 12-07-1995 FECAL OCCULT BLOOD FECAL OCCULT BLOOD [facility] Start: 12-07-1995 Screening for malignant neoplasm of colon [facility] Start: 12-07-1995 SIGMOIDOSCOPY SIGMOIDOSCOPY [facility] Start: [address] [facility] Start: 1990 Screening for malignant neoplasm of breast Mammogram [facility] Start: 1972 DTaP/Tdap/Td Vaccines (1 - Tdap) DTaP/Tdap/Td Vaccines (1 - Tdap) [facility] Start: 1969 SHINGRIX VACCINE (1 of 2) SHINGRIX VACCINE (1 of 2) [facility] Start: 1969 Urine microalbumin profile [facility] Start: 1968 ANNUAL PCP TEAM CHRONIC DISEASE VISIT ANNUAL PCP TEAM CHRONIC DISEASE VISIT [facility] Start: 1968 Anxiety Screening Anxiety Screening [facility] Start: 1968 BP CONTROLLED (<130/80) BP CONTROLLED (<130/80) [facility] Start: 1968 Depression Screening Depression Screening [facility] Start: 1968 Hepatitis C screening Hepatitis C Screening [facility] Start: 1961 Screening for malignant neoplasm of cervix Cervical Cancer Screening [facility] Start: 12-07-1951 MMR Vaccines (1 of 1 - Standard series) MMR Vaccines (1 of 1 - Standard series) [facility] Start: 1950 Lipid panel Lipid Panel [facility] Start: 1950 Medicare Annual Wellness (AWV) Medicare Annual Wellness (AWV) [facility] Start: 1950 Medicare Annual Wellness Visit Medicare Annual Wellness Visit (AWV) [facility] Start: 1950 Screening for malignant neoplasm of colon 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 As needed (Lab) until discontinued starting 02/05/2025 [facility] Service Area Work Phone: Comment on above: As needed (Lab) until discontinued start ing 02/05/2025 End: 03-31-2023 CBC W Auto Differential panel - Blood CBC + DIFF Lab Routine Chronic ITP (idiopathic thrombocytopenia) (HCC) Obstructive sleep apnea syndrome Every 6 weeks for 9 Occurrences starting 03/31/2022 until 03/31/2023 [facility] Work Phone: Comment on above: Every 6 weeks for 9 Occurrences starting 03/31/2022 until 03/31/2023 End: 04-19-2024 CBC W Auto Differential panel - Blood CBC + DIFF Lab Routine Chronic ITP (idiopathic thrombocytopenia) (HCC) Every 6 weeks for 9 Occurrences starting 04/20/2023 until 04/19/2024 [facility] Work Phone: Comment on above: Every 6 weeks for 9 Occurrences starting 04/20/2023 until 04/19/2024 CBC W Auto Different ial panel - Blood CBC and differential Lab Routine Left leg pain Ordered: 04/09/[address] [facility] Work Phone: Comment on above: Ordered: 04/09/2024 End: 04-18-2025 CBC W Auto Differential panel - Blood COMPLETE BLOOD COUNT AND DIFFERENTIAL Lab Routine Hyperglycemia Chronic ITP (idiopathic thrombocytopenia) (HCC) 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 deficiency Obstructive sleep apnea syndrome Every 6 weeks for 9 Occurrences starting 04/18/2024 until 04/18/2025 [facility] Work Phone: Comment on above: Every 6 weeks for 9 Occurrences starting 04/18/2024 until 04/18/2025 End: 11-22-2025 CBC W Auto Differential panel - Blood COMPLETE BLOOD COUNT AND DIFFERENTIAL Lab Routine Stage 3b chronic kidney disease (HCC) 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) Every other week for 26 Occurrences starting 11/22/2024 until 11/22/2025 [facility] Work Phone: Comment on above: Every other week for 26 Occurrences star ting 11/22/2024 until 11/22/2025 End: 12-18-2023 Choriogonadotropin ( test) [Presence] in Urine [facility] Service Area Work Phone: Comment on above: STAT (Lab) for 1 Occurrences starting until 12/18/2023 End: 04-19-2024 Cobalamin (Vitamin B12) [Mass/volume] in Serum or Plasma VITAMIN B12 BLOOD Lab Routine Chronic ITP (idiopathic thrombocytopenia) (HCC) Every 6 weeks for 9 Occurrences starting 04/20/2023 until 04/19/2024 [facility] Work Phone: Comment on above: Every 6 weeks for 9 Occurrences starting 04/20/2023 until 04/19/2024 End: 04-18-2025 Cobalamin (Vitamin B12) [Mass/volume] in Serum or Plasma VITAMIN B12 Lab Routine Hyperglycemia Chronic ITP (idiopathic thrombocytopenia) (HCC) 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 deficiency Obstructive sleep apnea syndrome Every 6 weeks for 9 Occurrences starting 04/18/2024 until 04/18/[address] [facility] Comment on above: Every 6 weeks for 9 Occurrences starting 04/18/2024 until 04/18/2025 End: 03-31-2023 Comprehensive metabolic 2000 panel - Serum or Plasma COMP METABOLIC PANEL Lab Routine Chronic ITP (idiopathic thrombocytopenia) (HCC) Obstructive sleep apnea syndrome Every 6 weeks for 9 Occurrences starting 03/31/2022 until 03/31/2023 [facility] Work Phone: Comment on above: Every 6 weeks for 9 Occurrences starting 03/31/2022 until 03/31/2023 End: 04-19-2024 Comprehensive metabolic 2000 panel - Serum or Plasma COMP METABOLIC PANEL Lab Routine Chronic ITP (idiopathic thrombocytopenia) (HCC) Every 6 weeks for 9 Occurrences starting 04/20/2023 until 04/19/2024 [facility] Work Phone: Comment on above: Every 6 weeks for 9 Occurrences starting 04/20/2023 until 04/19/2024 End: 04-18-2025 Comprehensive metabolic 2000 panel - Serum or Plasma COMPREHENSIVE METABOLIC PANEL Lab Routine Hyperglycemia Chronic ITP (idiopathic thrombocytopenia) (HCC) 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 deficiency Obstructive sleep apnea syndrome Every 6 weeks for 9 Occurrences starting 04/18/2024 until 04/18/[address] [facility] Comment on above: Every 6 weeks for 9 Occurrences starting 04/18/2024 until 04/18/2025 ECG 12 lead ECG 12 lead ECG Routine Cholesteatoma of left 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 Preoperative clearance Ordered: 11/26/2024 [facility] Work Phone: Comment on above: Ordered: 11/26/2024 ECG COMPLETE ECG COMPLETE ECG 12/15/2023 11:36 AM EDT [facility] End: 04-19-2024 Ferritin [Mass/volume] in Serum or Plasma FERRITIN BLD Lab Routine Chronic ITP (idiopathic thrombocytopenia) (HCC) Every 6 weeks for 9 Occurrences starting 04/20/2023 until 04/19/2024 [facility] Work Phone: Comment on above: Every 6 weeks for 9 Occurrences starting 04/20/2023 until 04/19/2024 End: 04-18-2025 Ferritin [Mass/volume] in Serum or Plasma FERRITIN Lab Routine Hyperglycemia Chronic ITP (idiopathic thrombocytopenia) (HCC) 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 deficiency Obstructive sleep apnea syndrome Every 6 weeks for 9 Occurrences starting 04/18/2024 until 04/18/[address] [facility] Comment on above: Every 6 weeks for 9 Occurrences starting 04/18/2024 until 04/18/2025 End: 04-19-2024 Folate [Mass/volume] in Serum or Plasma FOLATE SERUM Lab Routine Chronic ITP (idiopathic thrombocytopenia) (HCC) Every 6 weeks for 9 Occurrences starting 04/20/2023 until 04/19/2024 [facility] Work Phone: Comment on above: Every 6 weeks for 9 Occurrences starting 04/20/2023 until 04/19/2024 End: 04-18-2025 Folate [Mass/volume] in Serum or Plasma FOLATE, SERUM Lab Routine Hyperglycemia Chronic ITP (idiopathic thrombocytopenia) (HCC) 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 deficiency Obstructive sleep apnea syndrome Every 6 weeks for 9 Occurrences starting 04/18/2024 until 04/18/[address] [facility] Comment on above: Every 6 weeks for 9 Occurrences starting 04/18/2024 until 04/18/2025 End: 04-19-2024 Iron and Iron binding capacity panel - Serum or Plasma IRON + TIBC Lab Routine Chronic ITP (idiopathic thrombocytopenia) (HCC) Every 6 weeks for 9 Occurrences starting 04/20/2023 until 04/19/2024 [facility] Work Phone: Comment on above: Every 6 weeks for 9 Occurrences starting 04/20/2023 until 04/19/2024 End: 04-18-2025 Iron and Iron binding capacity panel - Serum or Plasma IRON AND TIBC Lab Routine Hyperglycemia Chronic ITP (idiopathic thrombocytopenia) (HCC) 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 deficiency Obstructive sleep apnea syndrome Every 6 weeks for 9 Occurrences starting 04/18/2024 until 04/18/[address] [facility] Comment on above: Every 6 weeks for 9 Occurrences starting 04/18/2024 until 04/18/2025 Renal function 1999 panel - Serum or Plasma [facility] Renal function 1999 panel - Serum or Plasma [facility] Surgical pathology study [facility] Work Phone: Comment on above: Release [...] Left leg pain 04/09/2024 10:28 AM EDT [facility] Immunizations Immunization Date Immunization Notes Care Provider Fa [facility] 04-02-2024 influenza, high dose seasonal, preservative-free Stephanie Dumont SEMICONDUCTOR EQUIPMENT TECHNICIAN Work Phone: [facility] 04-02-2024 influenza virus vacc ine, unspecified formulation Stephanie Dumont SEMICONDUCTOR EQUIPMENT TECHNICIAN Work Phone: [facility] 03-25-2023 influenza (HD-IIV4) vaccine, age 65+ yr, high dose, quadrivalent, PF (FLUZONE HIGH-DOSE) Rinku Ramsey MD Work Phone: [facility] 03-25-2023 influenza virus vacc ine, unspecified formulation Jayden Connelly APRN.ROUTE SALES MANAGER Work Phone: [facility] 04-20-2022 influenza, high-dose , quadrivalent vaccine (FLUZONE HIGH DOSE QUADRIVALENT) Jayden Connelly ELECTRIC MOTOR CONTROLS ASSEMBLER.ROUTE SALES MANAGER Work Phone: [facility] 04-20-2022 influenza virus vacc ine, unspecified formulation Rinku Ramsey MD Work Phone: [facility] 03-23-2021 influenza, high-dose , quadrivalent vaccine (FLUZONE HIGH DOSE QUADRIVALENT) Jayden Connelly ELECTRIC MOTOR CONTROLS ASSEMBLER.ROUTE SALES MANAGER Work Phone: [facility] 10-17-2020 COVID-19 vaccine, fu ll dose (MODERNA) Jayden Connelly ELECTRIC MOTOR CONTROLS ASSEMBLER.ROUTE SALES MANAGER Work Phone: [facility] 09-19-2020 COVID-19 vaccine, fu ll dose (MODERNA) Jayden Connelly ELECTRIC MOTOR CONTROLS ASSEMBLER.ROUTE SALES MANAGER Work Phone: [facility] 03-18-2020 influenza, high-dose , quadrivalent vaccine (FLUZONE HIGH DOSE QUADRIVALENT) Jayden Connelly ELECTRIC MOTOR CONTROLS ASSEMBLER.ROUTE SALES MANAGER Work Phone: [facility] 04-01-2019 influenza, high dose seasonal, preservative-free Jayden Connelly ELECTRIC MOTOR CONTROLS ASSEMBLER.ROUTE SALES MANAGER Work Phone: [facility] 04-01-2019 pneumococcal polysaccharide vaccine, 23 valent Jayden Connelly ELECTRIC MOTOR CONTROLS ASSEMBLER.ROUTE SALES MANAGER Work Phone: [facility] 03-23-2018 influenza, high dose seasonal, preservative-free Jayden Connelly ELECTRIC MOTOR CONTROLS ASSEMBLER.ROUTE SALES MANAGER Work Phone: [facility] 03-23-2018 pneumococcal conjuga te vaccine, 13 valent Jayden Connelly ELECTRIC MOTOR CONTROLS ASSEMBLER.ROUTE SALES MANAGER Work Phone: [facility] 04-08-2017 influenza, high dose seasonal, preservative-free Jayden Connelly ELECTRIC MOTOR CONTROLS ASSEMBLER.ROUTE SALES MANAGER Work Phone: [facility] 09-06-2016 pneumococcal conjuga te vaccine, 13 valent Jayden Connelly ELECTRIC MOTOR CONTROLS ASSEMBLER.ROUTE SALES MANAGER Work Phone: [facility] Payers Date Payer Category Payer Private Health Insurance [employer] DUAL COMPLETE UNITED [facility] DUAL COMPLETE [id number] 2023-Present [address] [address] [place] [address] [id number] 2023 Medicare [id number] [id number] 2023 Self-pay [id number] 2022 Medicare (Managed Care) 1.2. [id number]. [id number] 2022 Private Health Insurance [id number] 2021 Medicare UHC AAR MEDICAR E [facility] MED[facility] O [id number] 2021-Present [phone] [address] [address] [place] [address] O [id number]. [id number] 2015 Medicare MEDICARE MEDICAR E A AND B [id number] 2015-2021 [address] [address] [place] [address] Medicare [id number]. [id number] 2015 Medicare [id number]. 1.13.159.2. 7.3.410753.315 1950 Unknown [id number] 2.16.840.1.345731.3.579.2. 1245 1950 Unknown [id number] 2.16.840.1.707635.3.579.2. 1244 1950 Unknown [id number] 2.16.840.1.969634.3.579.2. 1244 1950 Unknown [id number] 2.16.840.1.659264.3.579.2. 1243 1950 Unknown [id number] 2.16.840.1.734892.3.579.2. 1258 1950 Unknown [id number] 2.16.840.1.596200.3.579.2. 1258 1950 Unknown [id number] 2.16.840.1.404862.3.579.2. 1258 1950 Unknown [id number] 2.16.840.1.883187.3.579.2. 1258 1950 Unknown [id number] 2.16.840.1.030809.3.579.2. 1258 1950 Unknown [id number] 2.16.840.1.760510.3.579.2. 1258 1950 Unknown [id number] 2.16.840.1.883541.3.579.2. 1258 1950 Unknown [id number] 2.16.840.1.259982.3.579.2. 1258 1950 Unknown [id number] 2.16.840.1.675813.3.579.2. 1258 1950 Unknown [id number] 2.16.840.1.643166.3.579.2. 1258 1950 Unknown [id number] 2.16.840.1.728579.3.579.2. 1258 1950 Unknown [id number] 2.16.840.1.195965.3.579.2. 1258 1950 Unknown [id number] 2.16.840.1.989972.3.579.2. 1258 1950 Unknown [id number] 2.16.840.1.951782.3.579.2. 1258 1950 Unknown [id number] 2.16.840.1.665760.3.579.2. 1258 1950 Unknown [id number] 2.16.840.1.440096.3.579.2. 1285 1950 Unknown [id number] 2.16.840.1.786088.3.579.2. 1285 1950 Unknown [id number] 2.16.840.1.804167.3.579.2. 1285 1950 Unknown [id number] 2.16.840.1.560528.3.579.2. 1285 1950 Unknown [id number] 2.16.840.1.736954.3.579.2. 1285 1950 Unknown [id number] 2.840.1.003795.3.579.2. 1285 1950 Unknown [id number] 2.16.840.1.674843.3.579.2. 1285 1950 Unknown [id number] 2.16.840.1.579861.3.579.2. 1285 1950 Unknown [id number] 2.16.840.1.442850.3.579.2. 1285 1950 Unknown [id number] 2.16840.1.765963.3.579.2. 1285 1950 Unknown [id number] 2.16.840.1.817628.3.579.2. 1285 1950 Unknown [id number] 2.16.840.1.406746.3.579.2. 1285 1950 Unknown [id number] 2.16.840.1.989215.3.579.2. 1285 1950 Unknown [id number] 2.16.840.1.056269.3.579.2. 1285 1950 Unknown [id number] 2.16.840.1.664784.3.579.2. 1286 1950 Unknown [id number] 2..840.1.512483.3.579.2. 1286 1950 Unknown [id number] 2.16.840.1.664926.3.579.2. 1242 Medicare [id number] Medicare [id number] 2..840.1.701802.19 Unknown [facility] [id number] Unknown [id number] 2..840.1.351930.3.579.2. 531 Unknown [id number] 2..840.1.538242.3.579.2. 531 Social History Date Type Detail Facility Start: 09-16-2021 End: 05-12-2022 Tobacco smoking status [facility] Light tobacco smoker [facility] History of tobacco use Cigarette Smoker [facility] Start: 09-16-2021 End: 05-12-2022 Tobacco use and exposure Smokeless tobacco non-user [facility] Start: 09-16-2021 End: 02-14-2025 Alcohol intake Current non-drinker of alcohol (finding) [facility] Start: 1950 Sex Assigned At Not on file [facility] Start: 10-18-2021 End: 11-26-2024 Exposure to SARS-CoV-2 (event) Not sure [facility] Start: 03-03-2016 End: 01-27-2025 Tobacco smoking status [facility] Smokes tobacco daily [facility] Start: 12-15-2022 End: 01-26-2023 Sex Assigned At [facility] History of tobacco use Passive smoker [facility] Start: 1950 Sex Assigned At Female F [facility] Start: 12-15-2022 End: 01-26-2023 History of Social function [facility] Start: 03-01-2016 End: 10-16-2023 Adult Depression Screening Assessment [address] [facility] Start: 08-16-2023 End: 02-05-2025 Alcohol intake Lifetime non-drinker (finding) [facility] Start: 09-20-2023 End: 08-21-2024 Tobacco smoking status NHIS Smoker (finding) [facility] Start: 08-21-2024 Sex Female (finding) [facility] NEGATED: Highlighted rowStart: ERICAF History of tobacco use Passive smoker [facility] Work Phone: Medical Equipment Procedure Code Equipment Code Equipment Origin al Text Equipment Identifier Dates [place], Centered, Total - Sn/A - [id number] Start: 02-05-2025 Goals Date Patient Goal Desired Activity /State Personal health goal Functional Status Date Assessment Result Facility 02-05-2025 LT[facility] s everity rating scale screener - recent [C-SSRS] [facility] Work Phone: 11-26-2024 Patient Health Quest ionnaire 2 item (PHQ-2) [Reported] [facility] Work Phone: 08-04-2022 Are you deaf, or do you have serious difficulty hearing No 08/04/2022 2:24 PM Jayden Berrios, ELECTRIC MOTOR CONTROLS ASSEMBLER.ROUTE SALES MANAGER No [facility] Work Phone: 08-04-2022 Are you blind, or do you have serious difficulty seeing, even when wearing glasses No 08/04/2022 2:24 PM Jayden Berrios, ELECTRIC MOTOR CONTROLS ASSEMBLER.ROUTE SALES MANAGER No [facility] 08-04-2022 Do you have serious difficulty walking or climbing stairs No 08/04/2022 2:24 PM Jayden Berrios, ELECTRIC MOTOR CONTROLS ASSEMBLER.ROUTE SALES MANAGER No [facility] 08-04-2022 Do you have difficul ty dressing or bathing No 08/04/2022 2:24 PM Jayden Berrios, ELECTRIC MOTOR CONTROLS ASSEMBLER.ROUTE SALES MANAGER No [facility] 08-04-2022 Because of a physica l, mental, or emotional condition, do you have difficulty doing errands alone such as visiting a physician's office or shopping No 08/04/2022 2:24 PM Jayden Berrios, ELECTRIC MOTOR CONTROLS ASSEMBLER.ROUTE SALES MANAGER No [facility] Mental Status Date Assessment Result Facility 08-04-2022 Because of a physica l, mental, or emotional condition, do you have serious difficulty concentrating, remembering, or making decisions No 08/04/2022 2:24 PM EST Jayden Connelly APRN.ROUTE SALES MANAGER No [facility] Clinical Notes 05-12-2021 to 02-14-2025 Jayden Connelly APRN.ROUTE SALES MANAGER - 02/14/2025 2:43 PM EDTSignificant Event - Mei Negrete Tierra, RN - 02/05/2025 4:07 PM EDTSignificant Event - Mei Mayorga RN - 02/05/2025 4:07 PM EDTAttachments Note Date & Type Note Facility 02-14-2025 Note [facility] 02-14-2025 History of Presen t illness Narrative Images from the original note were not included. NAME: Andrei Fish [facility] NO.: [id number] DATE OF SERVICE: January 03, 2025 ([place]) Some elements in this clinic note that are critical to medical decision making have been carefully reviewed and included from a prior clinic note dated: November 22, 2024 ([place]) Additional Clinicians involved in Andrei [...] 05/17/2023--PCP managing. PLAN: B12 shot today and every 6 weeks - Will give dose today Aranesp 200 mcg started on 2024. Hemoglobin today 10.8. Will receive dose today and continue every 2 weeks for hemoglobin <11. Labs q 2 weeks Continue Tavalisse 100mg BID RTC in 6 weeks Labs same day HPI: CASE HISTORY: Reverse Chronological Order 2024 - Started Aranesp 200 mcg every 2 weeks for hemoglobin <11. 05/29/2024 - CT Chest: Stable appearance of [...] - Rituxan X 4 Updated Visit, February 14, 2025: Patient with a history of anemia and chronic ITP. Currently managed with B12 injections and Aranesp every 2 weeks. Currently on Tavalisee 100 mg twice daily. She recently underwent ear surgery and reports no postoperative pain but experienced prolonged effects of anesthesia for two days post-surgery. She also notes a significant bruise at the IV site, suspecting improper placement. Her hearing has improved. She mentions a recent diagnosis of an abdominal aortic aneurysm, discovered incidentally on a CT scan. She plans to address this after recovering from her ear surgery. She is planning a two-week trip to [place] and requests hydration supplements due to the expected hot weather. She denies a history of diabetes but mentions a recent borderline HbA1c level, which her clinician attributed to current stressors. She reports recent emotional stress due to multiple family and friend losses, including a relative with stage IV lung cancer and a friend's daughter who from a brain aneurysm. Recent labs show a slight decrease in platelet count and hemoglobin levels remaining below 11 g/dL. She is due for her B12 injection, which she last received on January 17. Updated Visit, January 03, 2025: Since her last visit she had an acute illness characterized by severe diarrhea and dehydration. She was admitted to the hospital for two days for IV fluid administration and monitoring of renal function. During hospitalization, she was temporarily discontinued from spironolactone and started on a 12-day course of acid reflux medication. She is currently receiving Aranesp injections every two weeks for anemia management. Patient reports that her diarrhea has resolved, but she continues to experience fatigue. She denies any nausea, vomiting, or abdominal pain. She is not a regular water drinker but is making efforts to increase her fluid intake. She is scheduled to see her textile screen maker in January and her primary care physician on Monday. Updated Visit, November 22, 2024: Andrei returns [...] shot today. Updated Visit, August 30, 2024: Andrie returns today for a follow-up visit. Overall [...] is going to follow up with her SEMICONDUCTOR EQUIPMENT TECHNICIAN regarding pulmonary nodule that has been stable [...] having a mammogram and dexa scan at [facility] per her PCP. She states that [...] 08/29/2022 and then a follow-up with her textile screen maker on 09/07/2022. Overall, she is doing well [...] they are slightly increased. Got back from [place] and saw her sisters and had a [...] had a consultation with nephrology, Dr. Gilson Ceja. Dr. Ceja increased her losartan to 50 mg daily. [...] why she was going to see a textile screen maker for her blood pressure. Patient also has [...] PERFORMANCE STATUS: 0 PHYSICAL EXAMINATION: Vitals: BP 136/80 Pulse 82 Temp (Src) 97.4 (Temporal) Resp 16 Ht 5' 2.52 (1.59m) Wt 175 lb 0.7 oz (79.4kg) SpO2 100% BMI 31.49 kg/(m^2). Body surface area is 1.87 meters squared. Exam limited to gross visualization [...] Vancomycin Unknown Burning sensation Diphtheria,Pertussi* Rash MEDICATIONS: ciprofloxacin-dexAMETHasone (CIPRODEX) 0.3-0.1 % otic suspension 4 drops. cephALEXin (KEFLEX) 500 mg capsule Take 500 mg by mouth. hydroCHLOROthiazide 25 mg tablet TAKE 1 TABLET BY MOUTH EVERY DAY pilocarpine (SALAGEN) 5 mg tablet Take 1 [...] tablet by mouth two times a day. ergocalciferol 50,000 unit capsule (VITAMIN D2, DRISDOL) Take 1 capsule by mouth one time a week. alendronate (FOSAMAX) 70 mg tablet PLEASE SEE ATTACHED FOR DETAILED DIRECTIONS metoprolol succinate ER (TOPROL XL) 25 mg 24 hr tablet Take 12.5 mg by mouth once daily. LABORATORY VALUES: WBC (k/uL) Date Value 02/14/2025 4.32 RBC (m/uL) Date Value 02/14/2025 3.35 (L) Hemoglobin (g/dL) Date Value 02/14/2025 10.8 (L) Hematocrit (%) Date Value 02/14/2025 34.3 (L) MCV (fL) Date Value 02/14/2025 102.4 (H) MCH (pg) Date Value 02/14/2025 32.2 MCHC (g/dL) Date Value 02/14/2025 31.5 RDW-CV (%) Date Value 02/14/2025 14.5 Platelet Count (k/uL) Date Value 02/14/2025 146 (L) MPV (fL) Date Value 02/14/2025 8.7 (L) Glucose (mg/dL) Date Value 02/14/2025 109 (H) BUN (mg/dL) Date Value 02/14/2025 37 (H) Creatinine (mg/dL) Date Value 02/14/2025 1.21 (H) Sodium (mmol/L) Date Value 02/14/2025 140 Potassium (mmol/L) Date Value 02/14/2025 4.4 Chloride (mmol/L) Date Value 02/14/2025 108 (H) CO2 (mmol/L) Date Value 02/14/2025 25 Protein, Total (g/dL) Date Value 02/14/2025 7.1 Albumin (g/dL) Date Value 02/14/2025 3.8 (L) Calcium, Total (mg/dL) Date Value 02/14/2025 9.4 Alkaline Phosphatase (U/L) Date Value 02/14/2025 78 Bilirubin, Total (mg/dL) Date Value 02/14/2025 0.6 AST (U/L) Date Value 02/14/2025 20 ALT (U/L) Date Value 02/14/2025 16 Cholesterol, Total (mg/dL) Date Value 03/30/2017 171 Triglyceride (mg/dL) Date Value 03/30/2017 118 DIAGNOSIS: (D53.1) 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 deficiency (primary encounter diagnosis) (N18.32, D63.1) 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) (D69.6) Thrombocytopenia (D69.3) Chronic ITP (idiopathic thrombocytopenia) (HCC) (I10) Essential hypertension (G47.33) Obstructive sleep apnea syndrome (I71.40) Abdominal aortic aneurysm (AAA) without rupture, unspecified part PAST MEDICAL HISTORY Diagnosis Date Lupus Thrombocytopenia [...] which included preparing to see the patient, [id number] patient care, completing clinical documentation, performing a medically appropriate examination, counseling and educating the patient/family/caregiver, ordering medications, tests, or procedures, independently interpreting results (not separately reported), communicating results to the patient/family/caregiver, and care coordination (not separately reported). Jayden Connelly APRN.[facility] Hematology and Oncology Services Provided at: [place], [place] CC: Dr. Atif Graf documented in this encounter [facility] 02-05-2025 associate sales manager Note Pt and at bedside educated on and provided with discharge instructions. Both state an understanding of the teaching and all questions answered at this time. [facility] 02-05-2025 Miscellaneous Notes Pt and at bedside educated on and provided with discharge instructions. Both state an understanding of the teaching and all questions answered at this time. documented in this encounter [facility] Work Phone: 02-05-2025 Hospital Discharg e instructions Sesar Aguirre MD - 02/05/2025 11:47 AM EDT POST OPERATIVE INSTRUCTIONS AFTER EAR SURGERY Susanna Graf MD ? Valerio Torrez MD ? Aditi Wren MD? Jeremias Ashby MD Most ear surgeries should have a 2-4 week postoperative appointment. Please be sure to call the doctor's office and make a follow-up appointment, if you don't already have it. Dressing or Band-Aid can be removed 2 days after surgery. Once removed, replace the cotton [...] nerve monitor. Dizziness, ringing in the ear, taste disturbance, and after surgery are common. Call if severe. [...] to make specific suggestions for your care. Call [phone] ([phone]) or [phone] (after-hours) any time day or night if you have any of the following: Bad smell coming out of your ear Severe swelling around your ear Any questions Pain in your ear Redness around your ear Severe dizziness The following attachments cannot be sent through Care Everywhere.General Anesthesia Discharge Instructions (Portuguese)Acute Pain Discharge Instructions, Adult (Portuguese)Surgical Wound Discharge Instructions (Portuguese)documented in this encounter [facility] Work Phone: 02-05-2025 History and physical note Images from the original note were not included. History Of Present Illness Andrei Fish is a 74 y.o. female presenting with recurrent tm perforation and drainage. Here for revision surgery. Past Medical History She has a past medical history of Hypertension and Osteoporosis. Surgical History She has a past surgical history that includes Appendectomy; Cholecystectomy; Hysterectomy; and Colonoscopy. Social History She reports that she has been smoking cigarettes. She has a 11.3 pack-year smoking history. She has never been exposed to tobacco smoke. She has never used smokeless tobacco. She reports that she does not drink alcohol and does not use drugs. Family History Her family history is not on file. Allergies Vancomycin and Diphtheria,pertussis (acellular),tetanus vaccine Review of Systems All other systems reviewed and are negative. 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 We discussed the risks and benefits of left revision ear drum repair. These risks include damage to the ear bone, damage to the inner ear, hearing loss, dizziness, facial nerve injury, and taste disturbance. The patient opted to undergo this procedure and will be scheduled at their earliest convenience. Susanna Graf MD [facility] Work Phone: 02-05-2025 History and physical note Images from the original note were not included. History Of Present Illness Andrei Fish is a 74 y.o. female presenting with recurrent tm perforation and drainage. Here for revision surgery. Past Medical History She has a past medical history of Hypertension and Osteoporosis. Surgical History She has a past surgical history that includes Appendectomy; Cholecystectomy; Hysterectomy; and Colonoscopy. Social History She reports that she has been smoking cigarettes. She has a 11.3 pack-year smoking history. She has never been exposed to tobacco smoke. She has never used smokeless tobacco. She reports that she does not drink alcohol and does not use drugs. Family History Her family history is not on file. Allergies Vancomycin and Diphtheria,pertussis (acellular),tetanus vaccine Review of Systems All other systems reviewed and are negative. 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 We discussed the risks and benefits of left revision ear drum repair. These risks include damage to the ear bone, damage to the inner ear, hearing loss, dizziness, facial nerve injury, and taste disturbance. The patient opted to undergo this procedure and will be scheduled at their earliest convenience. Susanna Graf MD documented in this encounter [facility] Work Phone: 01-28-2025 Telephone encounter Note Yes, just CBC. Thanks, Jayden Connelly APRN.[facility] 01-28-2025 Miscellaneous Notes Yes, just CBC. Thanks, Jayden Connelly APRN.ROUTE SALES MANAGER Pt scheduled for lab/possible aranesp 01/31/25. Standing orders too soon to use. 02/15/25 HM appt labs placed. Jayden: does pt just need a cbc order for 01/31? Desirae Pimentel, RN documented in this encounter [facility] 01-28-2025 Telephone encounter Note Pt scheduled for lab/possible aranesp 01/31/25. Standing orders too soon to use. 02/15/25 HM appt labs placed. Jayden: does pt just need a cbc order for 01/31? Desirae Pimentel, RN [facility] 01-27-2025 Evaluation note Diagnosis Onset Date Resolution Anemia of renal disease acute J 2024 1:48pm Chronic ITP (idiopathic thrombocytopenia) acute January 27 1:48pm CKD (chronic kidney disease) stage 3, GFR 30-59 ml/min acute January 27, 2025 1:48pm Complex renal cyst acute January 082024 1:48pm Hypertensive chronic kidney disease with stage 1 through stage 4 chronic ki acute January 27, 2025 1:48pm Hyperuricemia acute January 27, 2025 1:48pm Lupus acute January 27 1:48pm ADALBERTO (obstructive sleep apnea) acute January 27, 2025 1:48pm Vitamin D deficiency acute January 27, 2025 1:48pm AAA (abdominal aortic aneurysm) without rupture acute March 13, 2 025 9:58am Chronic ITP (idiopathic thrombocytopenia) acute March 13, 2025 9:58am CKD (chronic kidney disease) stage 3, GFR 30-59 ml/min acute March 13, 2 025 9:58am Essential hypertension acute Se 2024 9:58am Obesity due to excess calories acute March 13 025 9:58am [facility] Work Phone: [phone] History of Present illness Narrative* Stephanie Dumont NP - 01/15/2025 2:58 PM EDTAssociated Problem(s): Lumbar spondylosis Deg noted on CT scan Check neck xray * Stephanie Dumont NP - 01/15/2025 2:58 PM EDTAssociated Problem(s): Weakness of both legs Check lumbar xray DD: vascular, radicular * FREDDY HAMILTON - 01/15/2025 2:20 PM EDT Pt states she feels jittery and heart is racing, weakness in legs, losing balance, blurred vision, jell-o legs, winded A lot of pain in right read Swelling in left ankles * Stephanie Dumont NP - 01/15/2025 2:20 PM EDT Images from the original note were not included. Andrei Fish is a 74 y.o. female presents with chief complaint of No chief complaint on file. HPI: Here for recheck: no diarrhea, no NV, still not a lot of appetite no bloody stools, no abd pain Her primary complaint is generalized weakness in legs, lower legs feel achy, can be worse if standing and washing dishes etc No new trauma, no acute lumbar back pain, does report that sitting down will feel better When in store pushing cart will have to lean forward No definite low back pain SUBJECTIVE: MEDICATIONS: Current Outpatient Medications Medication Instructions alendronate (FOSAMAX) 70 mg, Oral, Every 7 days, Take in the morning with a full glass of water, john empty stomach, and do not take anything else by mouth or lie down for the next 30 min. benzonatate (TESSALON) 100 mg, Every 6 hours PRN ergocalciferol (VITAMIN D-2) 50,000 Units, Weekly hydroCHLOROthiazide (HYDRODIURIL) 25 mg, Daily losartan (COZAAR) 50 mg, Nightly metoprolol succinate XL (TOPROL-XL) 12.5 mg, Oral, Daily, Do not crush or chew. pilocarpine (Salagen) 5 MG tablet 1 tablet, 3 times daily sodium bicarbonate 650 mg, 2 times daily spironolactone (ALDACTONE) 25 mg, Daily RT Tavalisse 100 mg, 2 times daily ALLERGIES: Allergies Allergen Reactions Vancomycin Other States had burning sensation t/o entire body. (Infectious disease) States medication was given too fast. Zdkxrkq-Myneed-Lnuhe Pertussis Rash REVIEW OF SYMPTOMS: Review of Systems Constitutional: Negative for appetite change, chills and fever. HENT: Negative for congestion, ear pain and sore throat. Eyes: Negative for pain, discharge, redness and visual disturbance. Respiratory: Negative for cough, shortness of breath and wheezing. Cardiovascular: Negative for chest pain, palpitations and leg swelling. Gastrointestinal: Negative for abdominal pain, blood in stool, constipation, diarrhea, nausea and vomiting. Genitourinary: Negative for difficulty urinating, dysuria and frequency. Musculoskeletal: Negative for arthralgias, back pain, joint swelling and myalgias. Leg weakness bilat Skin: Negative for rash and wound. Neurological: [...] in her mother. OBJECTIVE: Visit Vitals BP 144/80 (BP Location: Left arm, Patient Position: Sitting, BP Cuff Size: Adult long) Pulse 87 Temp 98.5 F (Temporal) Resp 18 Wt 174 lb 12.8 oz LMP (LMP Unknown) SpO2 98% BMI 30.96 kg/m OB Status Postmenopausal Smoking Status Every Day BSA 1.88 m Physical Exam Vitals and nursing note [...] regular rhythm. Pulses: Normal pulses. Heart sounds: Murmur heard. Pulmonary: Effort: Pulmonary effort is normal. Breath [...] Edema present. Left lower leg: Edema present. Comments: Trace edema bilat LE LLE: deformity from prior trauma MMT 4.5/5 bilat LE Skin: General: Skin is warm and dry. [...] file. Problem List Items Addressed This Visit Tobacco dependence The patient has been advised of the risks of continued smoking: stroke, DC, all forms of cancer, lung disease, and . Options for quitting smoking include: cold turkey, hypnosis, acupuncture, nicotine replacement meds(gum, lozenges, and patches), Buproprion, and Varenicline. At this time pt is encouraged to evaluate their goals for wanting to quit smoking, and reach out toprovider when ready to start this process Obesity (BMI 30-39.9) Discussed with patient their BMI (actual, verses recommended). We have also discussed lifestyle modifications: attempts to perform physical activity as chronic conditions allow, also to monitor dietary intake: increasing protein/fruits/veggies and lowering carb intake (unless contraindicated). Limit sodas, juices, and sugary drinks. Weakness of both legs Check lumbar xray DD: vascular, radicular Relevant Orders XR lumbar spine 2 or 3 views Chronic kidney disease, stage 3b ([facility]) - Primary Goal control blood pressures Check labs semi annually as well as prn sxs changes Has aldactone on hold until sees Nephrolgoist Lumbar spondylosis Deg noted on CT scan Check neck xray Relevant Orders XR lumbar spine 2 or 3 views * Stephanie Dumont NP - 01/15/2025 7:23 AM EDTAssociated Problem(s): Tobacco dependence The patient has been advised of the risks of continued smoking: stroke, DC, all forms of cancer, lung disease, and . Options for quitting smoking include: cold turkey, hypnosis, acupuncture, nicotine replacement meds(gum, lozenges, and patches), Buproprion, and Varenicline. At this time pt is encouraged to evaluate their goals for wanting to quit smoking, and reach out toprovider when ready to start this process * Stephanie Dumont NP - 01/15/2025 7:22 AM EDTAssociated Problem(s): Obesity (BMI 30-39.9) Discussed with patient their BMI (actual, verses recommended). We have also discussed lifestyle modifications: attempts to perform physical activity as chronic conditions allow, also to monitor dietary intake: increasing protein/fruits/veggies and lowering carb intake (unless contraindicated). Limit sodas, juices, and sugary drinks. * Stephanie Dumont NP - 01/15/2025 7:22 AM EDTAssociated Problem(s): Chronic kidney disease, stage 3b ([facility]) Goal control blood pressures Check labs semi annually as well as prn sxs changes Has aldactone on hold until sees Nephrolgoist [id number] History of Present illness Narrative* Stephanie Dumont NP - 01/06/2025 12:46 PM EDTAssociated Problem(s): DARYL (acute kidney injury) Values returning more to baseline Cont with nephrology * Stephanie Dumont NP - 01/06/2025 12:45 PM EDTAssociated Problem(s): Tobacco dependence The patient has been advised of the risks of continued smoking: stroke, DC, all forms of cancer, lung disease, and . Options for quitting smoking include: cold turkey, hypnosis, acupuncture, nicotine replacement meds(gum, lozenges, and patches), Buproprion, and Varenicline. At this time pt is encouraged to evaluate their goals for wanting to quit smoking, and reach out toprovider when ready to start this process * Stephanie Dumont NP - 01/06/2025 12:44 PM EDTAssociated Problem(s): Diarrhea Resolved and cultures were negative * FREDDY HAMILTON - 01/06/2025 11:30 AM EDT Pt is still having weakness and fatigue. Bilateral swelling * Stephanie Dumont NP - 01/06/2025 11:30 AM EDT Images from the original note were not included. Andrei Fish is a 74 y.o. female presents with chief complaint of Hospital Follow-up HPI: Here for fu from hospital fu for dehydration: No longer with diarrhea, no NV, still fatigued and does not have a lot of appetite either. No fever, or chills, no chest pain/pressure/dyspnea SUBJECTIVE: MEDICATIONS: Current Outpatient Medications Medication Instructions alendronate (FOSAMAX) 70 mg, Oral, Every 7 days, Take in the morning with a full glass of water, john empty stomach, and do not take anything else by mouth or lie down for the next 30 min. benzonatate (TESSALON) 100 mg, Every 6 hours PRN ergocalciferol (VITAMIN D-2) 50,000 Units, Weekly hydroCHLOROthiazide (HYDRODIURIL) 25 mg, Daily losartan (COZAAR) 50 mg, Nightly metoprolol succinate XL (TOPROL-XL) 12.5 mg, Oral, Daily, Do not crush or chew. pilocarpine (Salagen) 5 MG tablet 1 tablet, 3 times daily sodium bicarbonate 650 mg, 2 times daily spironolactone (ALDACTONE) 25 mg, Daily RT Tavalisse 100 mg, 2 times daily ALLERGIES: Allergies Allergen Reactions Vancomycin Other States had burning sensation t/o entire body. (Infectious disease) States medication was given too fast. Hitkmlz-Twjuoe-Jltys Pertussis Rash REVIEW OF SYMPTOMS: Review of Systems Constitutional: Positive for fatigue. Negative for appetite change, chills and fever. HENT: Negative for congestion, ear pain and sore throat. Eyes: Negative for pain, discharge, redness and visual disturbance. Respiratory: Negative for cough, shortness of breath and wheezing. Cardiovascular: Negative [...] in her mother. OBJECTIVE: Visit Vitals BP 120/70 (BP Location: Left arm, Patient Position: Sitting, BP Cuff Size: Adult long) Pulse 63 Temp 98.5 F (Temporal) Resp 18 Wt 177 lb LMP (LMP Unknown) SpO2 97% BMI 31.35 kg/m OB Status Postmenopausal Smoking Status Every Day BSA 1.89 m Physical Exam Vitals and nursing note [...] Normal pulses. Heart sounds: Normal heart sounds. No murmur heard. Pulmonary: Effort: Pulmonary effort is normal. Breath sounds: Normal breath sounds. No wheezing or rhonchi. Abdominal: General: Bowel sounds are normal. There is no distension. Palpations: Abdomen is soft. There is no mass. Tenderness: There is no abdominal tenderness (mild epigastric, non specific). Musculoskeletal: General: Normal range of motion. Cervical back: Normal range of motion and neck supple. Right lower leg: Edema present. Left lower leg: Edema present. Comments: Trace-1+ bilat pedal Lymphadenopathy: Cervical: No cervical adenopathy. Skin: General: [...] List Items Addressed This Visit Essential hypertension - Primary Please check blood pressure daily and record DASH diet Limit caffeine Take medication as directed Contact office if chest pain, pressure, dizziness, shortness of breath, swelling legs Recommend slow position changes Current meds: hydrochlorothiazide, losartan, metoprolol, Tobacco dependence The patient has been advised of the risks of continued smoking: stroke, DC, all forms of cancer, lung disease, and . Options for quitting smoking include: cold turkey, hypnosis, acupuncture, nicotine replacement meds(gum, lozenges, and patches), Buproprion, and Varenicline. At this time pt is encouraged to evaluate their goals for wanting to quit smoking, and reach out toprovider when ready to start this process Diarrhea Resolved and cultures were negative Chronic kidney disease, stage 3b ([facility]-HCC) Goal control blood pressures Check labs semi annually as well as prn sxs changes Has aldactone on hold until sees Nephrolgoist * Stephanie Dumont NP - 01/06/2025 6:51 AM EDTAssociated Problem(s): Chronic kidney disease, stage 3b (CMS-HCC) Goal control blood pressures Check labs semi annually as well as prn sxs changes Has aldactone on hold until sees Nephrolgoist * Stephanie Dumont NP - 01/06/2025 6:51 AM EDTAssociated Problem(s): Essential hypertension Please check blood pressure daily and record DASH diet Limit caffeine Take medication as directed Contact office if chest pain, pressure, dizziness, shortness of breath, swelling legs Recommend slow position changes Current meds: hydrochlorothiazide, losartan, metoprolol, documented in this encounterMercy Hospital St. [id number] Instructions* Patient Instructions* Stephanie Dumont NP - 01/06/2025 11:30 AM EDT Keep appt with Dr Hernandes Keep appt with Kidney dr Ceja documented in this [facility]06-27-20[facility] NoteHolzer Hospital06-27-[facility]25 History of Present illness Narrative* Jayden Connelly APRN.ROUTE SALES MANAGER - 01/03/2025 2:16 PM EDT Images from the original note were not included. NAME: Andrei Fish [facility] NO.: [id number] DATE OF SERVICE: January 03, 2025 ([place]) Some elements in this clinic note that are critical to medical decision making have been carefully reviewed and included from a prior clinic note dated: November 22, 2024 ([place]) Additional Clinicians involved in Andrei [...] Osteoporosis--dexa scan 05/17/2023--PCP managing. PLAN: B12 shot and every 6 weeks (Last given 12/20/2024) Aranesp 200 mcg started on 2024. Hemoglobin today 10.6. Will receive dose today and continue every 2 weeks for hemoglobin <11. Labs q 2 weeks Continue Tavalisse 100mg BID RTC in 6 weeks Labs same day HPI: CASE HISTORY: Reverse Chronological Order 2024 - Started Aranesp 200 mcg every 2 weeks for hemoglobin <11. 05/29/2024 - CT Chest: Stable appearance of numerous small nodules scattered within the lungs. Consider follow-up CT chestin 6 months to document continued stability and [...] focally thickened loop of bowel. No fluid collectionsin the abdomen/pelvis. Infrarenal 31 mm AAA. 11/20/2021 [...] 2018 - Rituxan X 4 Updated Visit, January 03, 2025: Since her last visit she had an acute illness characterized by severe diarrhea and dehydration. Shewas admitted to the hospital for two days for IV fluid administration and monitoring of renal function. During hospitalization, she was temporarily discontinued from spironolactone and started on a 12-day course of acid reflux medication. She is currently receiving Aranesp injections every two weeks for anemia management. Patient reports that her diarrhea has resolved, but she continues to experience fatigue. She deniesany nausea, vomiting, or abdominal pain. She is not a regular water drinker but is making efforts to increase her fluid intake. She is scheduled to see her textile screen maker in January and her primary care physician on Monday. Updated Visit, November 22, 2024: Andrei returns today for a follow up. Hemoglobin has decreased to 9.7, platelets stable within normallimits. Will start Aranesp q 2 weeks for [...] if it is a side effect of herear surgery in 12/2023. Her appetite is normal. [...] improved since February, platelet count is within normalranges. Will continue her current treatment regimen. She [...] is going to follow up with her SEMICONDUCTOR EQUIPMENT TECHNICIAN regarding pulmonary nodule that has been stable on our recordssince 2019, thyroid nodule, and echocardiogram for possible [...] her anemia. Chemistries and other labs still inprocess. We discussed she does't have a need for B12 or folic acid replacement at this time, but wecan monitor this. Updated Visit, June 05, 2023: Andrei returns for follow up. Remains on Tavalisse 100 mg BID. She reports having a mammogram and dexa scan at [facility] per her PCP. She states that [...] GB, brother's did of cancer, grand-nephew in [place] passed from ALL-- so she is stressed. [...] for follow-up on 08/30/2022. She is scheduled forrenal ultrasound and blood work on 08/29/2022 and then a follow-up with her textile screen maker on 09/07/2022. Overall, she is doing well [...] as they are slightlyincreased. Got back from [place] and saw her sisters and had a [...] had a consultation with nephrology, Dr. Gilson Ceja. Dr. Ceja increased her losartan to 50 mg daily. [...] why she was going to see a textile screen maker for her blood pressure. Patient also has [...] PERFORMANCE STATUS: 0 PHYSICAL EXAMINATION: Vitals: BP 153/73 Pulse 61 Temp (Src) 97.6 (Temporal) Resp 18 Wt 176 lb 5.9 oz (80.0kg) SpO2 98% Body surface area is 1.88 meters squared. Exam limited to gross visualization [...] Vancomycin Unknown Burning sensation Diphtheria,Pertussi* Rash MEDICATIONS: hydroCHLOROthiazide 25 mg tablet TAKE 1 TABLET BY MOUTH EVERY DAY pilocarpine (SALAGEN) 5 mg tablet Take 1 [...] Take 12.5 mg by mouth once daily. ergocalciferol 50,000 unit capsule (VITAMIN D2, DRISDOL) Take 1 capsule by mouth one time a week. alendronate (FOSAMAX) 70 mg tablet PLEASE SEE ATTACHED FOR DETAILED DIRECTIONS spironolactone (ALDACTONE) 25 mg tablet Take 25 mg by mouth once daily. LABORATORY VALUES: WBC (k/uL) Date Value 01/03/2025 5.22 RBC (m/uL) Date Value 01/03/2025 3.32 (L) Hemoglobin (g/dL) Date Value 01/03/2025 10.6 (L) Hematocrit (%) Date Value 01/03/2025 32.9 (L) MCV (fL) Date Value 01/03/2025 99.1 MCH (pg) Date Value 01/03/2025 31.9 MCHC (g/dL) Date Value 01/03/2025 32.2 RDW-CV (%) Date Value 01/03/2025 14.8 Platelet Count (k/uL) Date Value 01/03/2025 132 (L) MPV (fL) Date Value 01/03/2025 8.7 (L) Glucose (mg/dL) Date Value 01/03/2025 103 (H) BUN (mg/dL) Date Value 01/03/2025 46 (H) Creatinine (mg/dL) Date Value 01/03/2025 1.53 (H) Sodium (mmol/L) Date Value 01/03/2025 138 Potassium (mmol/L) Date Value 01/03/2025 4.1 Chloride (mmol/L) Date Value 01/03/2025 107 CO2 (mmol/L) Date Value 01/03/2025 23 Protein, Total (g/dL) Date Value 01/03/2025 7.3 Albumin (g/dL) Date Value 01/03/2025 3.7 (L) Calcium, Total (mg/dL) Date Value 01/03/2025 9.5 Alkaline Phosphatase (U/L) Date Value 01/03/2025 79 Bilirubin, Total (mg/dL) Date Value 01/03/2025 0.3 AST (U/L) Date Value 01/03/2025 18 ALT (U/L) Date Value 01/03/2025 11 Cholesterol, Total (mg/dL) Date Value 03/30/2017 171 Triglyceride (mg/dL) Date Value 03/30/2017 118 DIAGNOSIS: (R53.81, R53.83) Malaise and fatigue (primary encounter diagnosis) Plan: THYROID STIMULATING HORMONE (N18.32, D63.1) 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) (D53.1) 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 Jayden Connelly APRN.CNP Hematology and Oncology Services Provided at: [place], [place] CC: Dr. Atif Graf documented in this encounterMercy Health St. [facility]06-18-2025 History of Present illness Narrative* Stephanie Dumont, JORDI - 12/25/2024 11:54 AM EDTAssociated Problem(s): Diarrhea Ongoing since 1 week, worsening in fatigue and weakness Orthostatics in office today: Lying 112/62, sitting 102/62, and standing 86/54 I do suspect dehydration is an issue, d/t these sxs and BP and age and medical conditions, I am going to have her go to [facility] ER for evaluation.she is agreeable to [...] had labs done on Monday at [facility] for anemia- she goes back [...] had labs done on Monday at the [facility] for anemia- she goes back [...] disease) States medication was given too fast. Rhequmz-Nbyphg-Hhcvj Pertussis Rash REVIEW OF SYMPTOMS: Review of [...] of the risks of continued smoking: stroke, DC, all forms of cancer, lung disease, and [...] free T3, free Coronary artery disease involving [place] coronary artery of [place] heart Takes b clarke Pre-diabetes No current [...] going to have her go to [facility] ER for evaluation.she is agreeable to [...] of the risks of continued smoking: stroke, DC, all forms of cancer, lung disease, and [...] EDTAssociated Problem(s): Chronic kidney disease, stage 3b ([facility]-HCC) Goal control blood pressures Check labs semi [...] AM EDTAssociated Problem(s): Coronary artery disease involving [place] coronary artery of [place] heart Takes b clarke * Stephanie Dumont [...] that manages your ADALBERTO: documented in this encounterMercy Hospital St. [id number] Instructions* Patient Instructions* Stephanie Dumont NP - 12/25/2024 11:00 AM EDT Proceed to ER for evaluation Also will provide an order for you for thyroid labs with next lab draw Fu in 3 weeks documented in this encounterMercy Hospital St. [id number] History of Present illness Narrative* Susanna Graf MD - 11/26/2024 3:00 PM EDT Images from the original note were not included. History Of Present Illness: Andrei Fish is a 73 y.o. 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 Augie Tyler at [facility]. She is now s/p left side tympanomastoidectomy [...] a history of left TM perforation s/p left- sided tympanoplasty with OCR in December [address] Augie Tyler at [facility]. She is now s/p left side tympanomastoidectomy [...] follow up ergocalciferol (Vitamin D-2) 1.25 MG (74759 UT) capsule 1 capsule, Weekly fostamatinib (TAVALISSE) [...] 11/26/24 which demonstrated right sided moderate SNHL, leftsided severe rising to moderate dropping to severe SNHL, type A tympanograms on the right, type B tympanograms on the left, with word understanding scores of 88% on the right and 72% on the left. Assessment/Plan 73 y.o. female with a history of left TM perforation s/p left-sided tympanoplasty with OCR in December [address] Augie Tyler at [facility]. She is now s/p left side tympanomastoidectomy and removalof cholesteatoma on 12/18/23, which had eroded the [...] signing my name below, I, Emani Kapadia, Scribtonie attest that this documentation has been prepared under the direction and in the presence of Susanna Vasquez MD. I have reviewed the documentation as scribed by Marshal Kapadia and agree with the notes. Susanna Graf MD documented in this encounterTr[facility] Work Phone: 1(446) 964-840805-16-2025 NoteHolzer Hospital05-16-2025 History of Present illness Narrative* Joanne Alvarez MA - 11/22/2024 2:36 PM EDT Patient Identification confirmed: yes. Injection given and documented on SEP per provider order. Joanne Alvarez MA documented in this encounterMer[facility] St. [facility]05-16-2025 Instructions* Patient Instructions* Emani Brizuela - 11/22/2024 2:13 PM EDT B12 shot today and q 6 weeks In 2 weeks, start Aranesp q 2 weeks for anemia Labs q 2 weeks Continue Tavalisse 100mg BID RTC in 6 weeks - coordinate with B12 & Aranesp Labs same day documented in this encounterMercy Health St. [facility]05-16-2025 History of Present illness Narrative* Rinku Ramsey MD - 11/22/2024 2:00 PM EDT Images from the original note were not included. NAME: Andrei Fish CLINIC NO.: [id number] DATE OF SERVICE: November 22, 2024 ([place]) Some elements in this clinic [...] scattered within the lungs. Consider follow-up CT chestin 6 months to document continued stability and [...] focally thickened loop of bowel. No fluid collectionsin the abdomen/pelvis. Infrarenal 31 mm AAA. 11/20/2021 [...] 2017 - Rituxan X 4 Updated Visit, November 22, 2024: Andrei returns today for a follow up. Hemoglobin has decreased to 9.7, platelets stable within normallimits. Will start Aranesp q 2 weeks for [...] if it is a side effect of herear surgery in 12/2023. Her appetite is normal. [...] improved since February, platelet count is within normalranges. Will continue her current treatment regimen. She [...] is going to follow up with her SEMICONDUCTOR EQUIPMENT TECHNICIAN regarding pulmonary nodule that has been stable on our recordssin2019, thyroid nodule, and echocardiogram for possible valvular [...] her anemia. Chemistries and other labs still inprocess. We discussed she does't have a need for B12 or folic acid replacement at this time, but wecan monitor this. Updated Visit, June 05, 2023: Andrei returns for follow up. Remains on Tavalisse 100 mg BID. She reports having a mammogram and dexa scan at [facility] per her PCP. She states that [...] for follow-up on 08/30/2022. She is scheduled forrenal ultrasound and blood work on 08/29/2022 and then a follow-up with her textile screen maker on 09/07/2022. Overall, she is doing well today with no new complaints. Updated Visit, June 23, 2022: Anrdei is doing well on Tavalisse 100 mg [...] as they are slightlyincreased. Got back from [place] and saw her sisters and had a [...] had a consultation with nephrology, Dr. Gilson Ceja. Dr. Ceja increased her losartan to 50 mg daily. [...] why she was going to see a textile screen maker for her blood pressure. Patient also has [...] Stage 3b chronic kidney disease (HCC) Plan: COMPLETE BLOOD COUNT AND DIFFERENTIAL, COMPREHENSIVE METABOLIC PANEL, IRON AND TIBC, FERRITIN, VITAMIN B12, FOLATE, SERUM, RETICULOCYTE COUNT, ERYTHROPOIETIN/EPO (N18.32, D63.1) 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) Plan: COMPLETE BLOOD COUNT AND DIFFERENTIAL, [...] which included preparing to see the patient, qtnb-or-eqqw patient care, completing clinical documentation, performing a medically appropriate examination, counseling and educating the patient/family/caregiver, ordering medications, tests, or procedures, independently interpreting results (not separately reported), communicating results to the patient/family/caregiver, and care coordination (not separately reported). Rinku Ramsey MD, CPE Hematology and Oncology Services Provided at: [place], [place] Scribe Attestation: This note was scribed [...] CC: Dr. Atif Graf documented in this encounterMercy Health St. [facility]05-16-2025 NoteHolzer Hospital04-30-2025 NoteHolzer Hospital04-30-2025 History of Present illness Narrative* Katheryn Hobson LSW - 11/06/2024 3:32 PM EDT SOCIAL WORK FOLLOW UP NOTE: [facility] [...] and asked for assistance with signing the Patientup for a Medicare Prescription Assistance Plan. SW has to ask James Cummings for help. After an hour of phone calls the Patient was successfully enrolled in a program. SW will remain available and will follow up as appropriate. KI Gar documented in this encounterMercy Health St. [facility]04-04-2025 History of Present illness Narrative* Li Frank APRN.CNP - 10/11/2024 10:30 AM EDT Images from the original note were not included. NAME: Andrei Fish CLINIC NO.: [id number] DATE OF SERVICE: October 11, 2024 ([place]) [...] scattered within the lungs. Consider follow-up CT chestin 6 months to document continued stability and [...] focally thickened loop of bowel. No fluid collectionsin the abdomen/pelvis. Infrarenal 31 mm AAA. 11/20/2021 [...] if it is a side effect of herear surgery in 12/2023. Her appetite is normal. [...] improved since February, platelet count is within normalranges. Will continue her current treatment regimen. She [...] is going to follow up with her SEMICONDUCTOR EQUIPMENT TECHNICIAN regarding pulmonary nodule that has been stable on our recordssin2019, thyroid nodule, and echocardiogram for possible valvular [...] her anemia. Chemistries and other labs still inprocess. We discussed she does't have a need for B12 or folic acid replacement at this time, but wecan monitor this. Updated Visit, June 05, 2023: Andrei returns for follow up. Remains on Tavalisse 100 mg BID. She reports having a mammogram and dexa scan at [facility] per her PCP. She states that [...] for follow-up on 08/30/2022. She is scheduled forrenal ultrasound and blood work on 08/29/2022 and then a follow-up with her textile screen maker on 09/07/2022. Overall, she is doing well [...] as they are slightlyincreased. Got back from [place] and saw her sisters and had a [...] had a consultation with nephrology, Dr. Gilson Ceja. Dr. Ceja increased her losartan to 50 mg daily. [...] why she was going to see a textile screen maker for her blood pressure. Patient also has [...] family history on file. Li Frank APRN, SEMICONDUCTOR EQUIPMENT TECHNICIAN-C, OCN Hematology and Oncology Services Provided at: [place], [place] CC: Dr. Atif Graf documented in this encounterMercy Health St. [facility]04-04-2025 NoteHolzer Hospital02-21-2025 NoteHolzer Hospital02-21-2025 History of Present illness Narrative* Joanne Alvarez MA - 08/30/2024 11:24 AM EST Patient Identification confirmed: yes. Injection given and documented on SEP per provider order. Joanne Alvarez MA documented in this encounterMercy Health St. [facility]02-21-2025 History of Present illness Narrative* Li Frank APRN.CNP - 08/30/2024 11:00 AM EST NAME: FishAndrei dean CLINIC NO.: [id number] DATE OF SERVICE: August 30, 2024 ([place]) Some elements in this clinic note that are critical to medical decision making have been carefully reviewed and included from a prior clinic note dated: July 11, 2024 ([place]) Additional Clinicians involved in Paulalicia Ruben Abe's care: Dr. Deluna, Dr. Susanna Graf DIAGNOSIS: [...] scattered within the lungs. Consider follow-up CT chestin 6 months to document continued stability and [...] focally thickened loop of bowel. No fluid collectionsin the abdomen/pelvis. Infrarenal 31 mm AAA. 11/20/2021 [...] if it is a side effect of herear surgery in 12/2023. Her appetite is normal. [...] improved since February, platelet count is within normalranges. Will continue her current treatment regimen. She [...] is going to follow up with her SEMICONDUCTOR EQUIPMENT TECHNICIAN regarding pulmonary nodule that has been stable on our recordssince 2019, thyroid nodule, and echocardiogram for possible [...] her anemia. Chemistries and other labs still inprocess. We discussed she does't have a need for B12 or folic acid replacement at this time, but wecan monitor this. Updated Visit, June 05, 2023: Andrei returns for follow up. Remains on Tavalisse 100 mg BID. She reports having a mammogram and dexa scan at [facility] per her PCP. She states that [...] for follow-up on 08/30/2022. She is scheduled forrenal ultrasound and blood work on 08/29/2022 and then a follow-up with her textile screen maker on 09/07/2022. Overall, she is doing well [...] as they are slightlyincreased. Got back from [place] and saw her sisters and had a [...] had a consultation with nephrology, Dr. Gilson Ceja. Dr. Ceja increased her losartan to 50 mg daily. [...] why she was going to see a textile screen maker for her blood pressure. Patient also has [...] No pertinent family history. Li Frank APRN, ZIGGYC, OCN Hematology and Oncology Services Provided at: [place], [place] CC: Dr. Atif Graf documented in this encounterMercy Health St. [facility]02-21-2025 NoteHolzer Hospital02-06-2025 History of Present illness Narrative* Stephanie Dumont NP - 08/15/2024 11:15 AM ESTAssociated Problem(s): Family history of cancer Sister: breast Nieces: pancreatic: X3 Father: bone cancer Niece: colon cancer * Stephanie Dumont NP - 08/15/2024 10:59 AM ESTAssociated Problem(s): Multiple lung nodules on CT Is due for repeat CT scan in 11/2024 * Stephanie Dumont NP - 08/15/2024 10:30 AM EST Images from the original note [...] problems. There is no history of kidney disease,CVA, heart failure or PVD. SUBJECTIVE: MEDICATIONS: Current [...] disease) States medication was given too fast. Tgffxlb-Nhmvjn-Mnqda Pertussis Rash REVIEW OF SYMPTOMS: Review of [...] of the risks of continued smoking: stroke, DC, all forms of cancer, lung disease, and [...] No current treatment Coronary artery disease involving [place] coronary artery of [place] heart (CMS/HCC) Takes b clarke PAH (pulmonary [...] 3a (HCC) (CMS/HCC) Continue with Nephrology dr ceja Keep BP at goal Family history of cancer Sister: breast Nieces: pancreatic: X3 Father: bone cancer Niece: colon cancer Other Visit Diagnoses Secondary pulmonary arterial hypertension (CMS/HCC) * Stephanie Dumont NP - 08/15/2024 6:49 AM ESTAssociated Problem(s): Tobacco dependence The patient has been advised of the risks of continued smoking: stroke, DC, all forms of cancer, lung disease, and [...] smoking cessation. * Stephanie Dumont NP - 08/15/2024 6:49 AM ESTAssociated Problem(s): Systemic lupus erythematosus, unspecified (CMS/HCC) No current treatment * Stephanie Dumont NP - 08/15/2024 6:49 AM ESTAssociated Problem(s): Qualitative platelet defects (CMS/HCC) Continue with Hem/onc * Stephanie Dumont NP - 08/15/2024 6:49 AM ESTAssociated Problem(s): Immune thrombocytopenic purpura (CMS/HCC) Fu as per Hem/onc * Stephanie Dumont NP - 08/15/2024 6:48 AM ESTAssociated Problem(s): Pre-diabetes No current meds Watch for increase in thirst, urination, or appetite. Inspect feet frequently monitoring for open wounds , and also recommend yearly eye exam. Pt should attempt to remain as physically active as chronic conditions allow, as well as trying to follow a diet low in carbohydrates, and simple sugars. A1c 6.3 (04/02) * Stephanie Dumont NP - 08/15/2024 6:48 AM ESTAssociated Problem(s): Obesity (BMI 30-39.9) Discussed with patient their BMI (actual, verses recommended). We have also discussed lifestyle modifications: attempts to perform physical activity as chronic conditions allow, also to monitor dietary intake: increasing protein/fruits/veggies and lowering carb intake (unless contraindicated). Limit sodas, juices, and sugary drinks. * Stephanie Dumont NP - 08/15/2024 6:48 AM ESTAssociated Problem(s): Chronic kidney disease, stage 3a (HCC) ([facility]) Continue with Nephrology dr ceja Keep BP at goal * Stephanie Dumont NP - 08/15/2024 6:47 AM ESTAssociated Problem(s): PAH (pulmonary artery hypertension) ([facility]) Per ECHO Elevated pressures, has hx of ADALBERTO, not treated * Stephanie Dumont NP - 08/15/2024 6:47 AM ESTAssociated Problem(s): Essential hypertension ([facility]) Please check blood pressure daily and record DASH diet Limit caffeine Take medication as directed Contact office if chest pain, pressure, dizziness, shortness of breath, swelling legs Recommend slow position changes Current meds: hydrochlorothiazide, losartan, metoprolol, aldactone * Stephanie Dumont NP - 08/15/2024 6:46 AM ESTAssociated Problem(s): Coronary artery disease involving [place] coronary artery of [place] heart ([facility]) Takes b clarke * Stephanie Dumont NP - 08/15/2024 6:45 AM ESTAssociated Problem(s): Obstructive sleep apnea syndrome .L documented in this [facility]02-06-2025 Instructions* Patient Instructions* Stephanie Dumont NP - 08/15/2024 10:30 AM EST I will place a referral to [facility] in [place] For cancer gene testing, they should call you for this CT chest: due 12/01, we will call you documented in this [facility]01-22-2025 Telephone encounter Note* Telephone Encounter - Krista Harden RPh - 07/31/2024 11:12 AM EST [facility] notified of appeal being approved 07/31/24. They will reach out to [facility] to complete enrollment application. I let Odalicia a voice mail making her aware of this outreach call from [facility]. Emiliano Harden PharmD, BCOP [facility] Work Phone: [phone]) 487-112601-22-2025 Miscellaneous Notes* Telephone Encounter - Krista Harden RPh - 07/31/2024 11:12 AM EST [facility] notified of appeal being approved 07/31/24. They will reach out to [facility] to complete enrollment application. I let Odalicia a voice mail making her aware of this outreach call from Herminio. Emiliano Harden PharmD, BCOP * Telephone Encounter - Krista Harden RPh - 07/29/2024 10:25 AM EST Approved on Appeal! I will notify [facility] 07/30/24, as they are closed for observance. The out of pocket cost is $2000 (medicare deductible for 2024) or can enroll in Medicare Payment Plan, as I explained to Andrei on the phone. Thank you. Emiliano Harden PharmD, BCOP * Telephone Encounter - Krista Harden RP - 07/24/2024 11:[address] Landin please see below rationale as to why Andrei' insurance has denied her Tavalisse at his time (despite her being stable on therapy since 2020) I can appeal, but will need your assistance in that matter. Thank you Emiliano Harden PharmD, BCOP * Telephone Encounter - Krista Harden RPh - 07/23/2024 1:02 PM EST Ambulatory Pharmacy Prior Authorization Note Provider Intervention Required?: No- Pharmacy completed on your behalf. Rx Plan: [employer]: Tavalisse Cover My Meds Da Silva: [id number] Determination: Denied PA Denied because: Formulary Tavalisse [...] not appropriate for you Prior Authorization/Case #: [id number] Prior Authorization Expiration: Time to PA Submission in CMM: 15 min Time to PA Determination in CMM: 2 days Additional Information: Additional information faxed over 07/23/24 at insurer's request For questions relating to this submission, please contact [facility] at [phone] * Telephone Encounter - Krista Harden RPh - 07/23/2024 12:58 PM EST Phone call placed to Andrei to inform [...] understands that if she does not qualify thatthe most she will pay is $2000 out of pocket which will be split over 12 months once enrolled in the payment plan. Emiliano Harden PharmD, BCOP documented in this [facility] Telephone encounter Note * Telephone Encounter - Krista Harden RPh - 07/29/2024 10:25 AM EST Approved on Appeal! I will notify [facility] 07/30/24, as they are closed for Day observance. The out of pocket cost is $2000 (medicare deductible for 2024) or can enroll in Medicare Payment Plan, as I explained to Andrei on the phone. Thank you. Emiliano Harden PharmD, BCOP [facility]01-15-2025 Telephone encounter Note* Telephone Encounter - Krista Harden RPh - 07/24/2024 11:[address] Landin please see below rationale as to why Andrei' insurance has denied her Tavalisse at his time (despite her being stable on therapy since 2020) I can appeal, but will need your assistance in that matter. Thank you Emiliano Harden, PharmD, BCOP [facility]01-14-2025 Telephone encounter Note* Telephone Encounter - Krista Harden RPh - 07/23/2024 1:02 PM EST Ambulatory Pharmacy Prior Authorization Note Provider Intervention Required?: No- Pharmacy completed on your behalf. Rx Plan: [employer] [facility]: Tavalisse Cover My Meds Da Silva: [id number] Determination: Denied PA Denied because: Formulary Tavalisse [...] not appropriate for you Prior Authorization/Case #: [id number] Prior Authorization Expiration: Time to PA Submission in CMM: 15 min Time to PA Determination in CMM: 2 days Additional Information: Additional information faxed over 07/23/24 at insurer's request For questions relating to this submission, please contact [facility] at [phone] [facility]01-14-2025 Telephone encounter Note* Telephone Encounter - Krista Harden RPh - 07/23/2024 12:58 PM EST Phone call placed to Andrei to inform [...] understands that if she does not qualify thatthe most she will pay is $2000 out of pocket which will be split over 12 months once enrolled in the payment plan. Emiliano Harden, PharmD, BCOP [facility]01-02-2025 [facility]01[facility] History of Present illness Narrative* Monica Dowling MA - 07/11/2024 11:28 AM EST Patient Identification confirmed: yes. Injection given and documented on SEP per provider order. Monica Dowling MA documented in this encounterMer[facility]. [facility]01-02-2025 Instructions* Patient Instructions* Emani Brizuela - 07/11/2024 11:13 AM EST B12 shot today and q 6 weeks Continue Tavalisse 100 mg BID RTC in 6 weeks Labs same day documented in this encounterMercy [facility] St. [facility]01[facility] History of Present illness Narrative* Li Frank APRN.CNP - 07/11/2024 11:00 AM EST Images from the original note were not included. NAME: Andrei Fish CLINIC NO.: [id number] DATE OF SERVICE: July 11, 2024 (Hong) Some elements in this clinic note that are critical to medical decision making have been carefully reviewed and included from a prior clinic note dated: May 30, 2024 (Joon) Additional Clinicians involved in Andrei [...] scattered within the lungs. Consider follow-up CT chestin 6 months to document continued stability and [...] focally thickened loop of bowel. No fluid collectionsin the abdomen/pelvis. Infrarenal 31 mm AAA. 11/20/2021 [...] if it is a side effect of herear surgery in 12/2023. Her appetite is normal. [...] improved since February, platelet count is within normalranges. Will continue her current treatment regimen. She [...] is going to follow up with her SEMICONDUCTOR EQUIPMENT TECHNICIAN regarding pulmonary nodule that has been stable on our recordssin2019, thyroid nodule, and echocardiogram for possible valvular [...] her anemia. Chemistries and other labs still inprocess. We discussed she does't have a need for B12 or folic acid replacement at this time, but wecan monitor this. Updated Visit, June 05, 2023: Andrei returns for follow up. Remains on Tavalisse 100 mg BID. She reports having a mammogram and dexa scan at [facility] per her PCP. She states that [...] for follow-up on 08/30/2022. She is scheduled forrenal ultrasound and blood work on 08/29/2022 and then a follow-up with her textile screen maker on 09/07/2022. Overall, she is doing well [...] as they are slightlyincreased. Got back from [place] and saw her sisters and had a [...] had a consultation with nephrology, Dr. Gilson Ceja. Dr. Ceja increased her losartan to 50 mg daily. [...] why she was going to see a textile screen maker for her blood pressure. Patient also has [...] day at bedtime ergocalciferol 50,000 unit capsule (DES Silva DRISDOL) Take 1 capsule by mouth one [...] family history on file. Li Frank APRN, SEMICONDUCTOR EQUIPMENT TECHNICIAN-C, [facility] Provided at: [place], [place] Scribe Attestation: This note was scribed [...] under my direction. CC: Dr. Atif Graf * Monica Dowling MA - 07/11/2024 10:58 AM EST Patient states that she has a cough it was better for awhile but has began again. Monica Dowling MA documented in this encounterMercy Health [facility]. [facility]01-02-2025 [facility]01-02-2025 [facility]11-22-2024 NoteOrthopedic Surgery Subjective Follow-up and Pain of the [...] B12, and Folate levels obtained at the [facility] on 05/30/2024 were normal except: Hemoglobin [...] documentation. There may be additional comments below. [facility]11-21-2024 Nurse Note* Monica Dowling MA - 05/30/2024 11:37 AM EST Patient Identification confirmed: yes. Injection given and documented on MAR per provider order. Monica Dowling MA [facility]11-21-2024 Nurse Note* Monica Dowling MA - 05/30/2024 11:37 AM EST Patient Identification confirmed: yes. Injection given and documented on MAR per provider order. Monica Dowling MA documented in this encounterMercy Health St. [facility]11-21-2024 Instructions* Patient Instructions* Rinku Ramsey MD - 05/30/2024 11:01 AM EST B12 shot today and q 6 weeks Continue Tavalisse 100 mg BID RTC in 6 weeks Labs same day documented in this encounterMercy Health St. [facility]11-21-2024 History of Present illness Narrative* Rinku Ramsey MD - 05/30/2024 10:40 AM EST Images from the original note were not included. NAME: Abe Andrei [facility] NO.: [id number] DATE OF SERVICE: May 30, 2024 (Joon) Some elements in this clinic note that are critical to medical decision making have been carefully reviewed and included from a prior clinic note dated: April 18, 2024 (Joon) Additional Clinicians involved in Andrei [...] scattered within the lungs. Consider follow-up CT chestin 6 months to document continued stability and [...] focally thickened loop of bowel. No fluid collectionsin the abdomen/pelvis. Infrarenal 31 mm AAA. 11/20/2021 [...] 2018 - Rituxan X 4 Updated Visit, May [...] improved since February, platelet count is within normalranges. Will continue her current treatment regimen. She [...] is going to follow up with her SEMICONDUCTOR EQUIPMENT TECHNICIAN regarding pulmonary nodule that has been stable on our recordssince 2019, thyroid nodule, and echocardiogram for possible [...] her anemia. Chemistries and other labs still inprocess. We discussed she does't have a need for B12 or folic acid replacement at this time, but wecan monitor this. Updated Visit, June 05, 2023: Andrei returns for follow up. Remains on Tavalisse 100 mg BID. She reports having a mammogram and dexa scan at [facility] per her PCP. She states that [...] complaints. Updated Visit, August 04, 2022: Andrei Fsih returns for follow-up. She remains [...] for follow-up on 08/30/2022. She is scheduled forrenal ultrasound and blood work on 08/29/2022 and then a follow-up with her textile screen maker on 09/07/2022. Overall, she is doing well [...] as they are slightlyincreased. Got back from [place] and saw her sisters and had a [...] had a consultation with nephrology, Dr. Gilson Ceja. Dr. Ceja increased her losartan to 50 mg daily. [...] why she was going to see a textile screen maker for her blood pressure. Patient also has [...] which included preparing to see the patient, [id number] patient care, completing clinical documentation, obtaining and/or reviewing separately obtained history, performing a medically appropriate examination, counseling and educating the patient/family/caregiver, ordering medications, tests, or procedures, communicating with other HCPs (not separately reported), independently interpreting results (not separately reported), communicating results to the patient/family/caregiver, and care coordination (not separately reported). Rinku Ramsey MD, CPE [facility] Provided at: [place], [place] Scribe Attestation: This note was scribed by Emani Brizuela on May 30, 2024 under the direction and supervisionof Dr. Rinku Ramsey. I attest that all of the information documented is correct to the best of my knowledge. Provider Attestation: I, Rinku Ramsey MD, attest that all information documented by the above scribe is correct, and was supervised by me and under my direction. CC: Dr. Atif Graf documented in this encounterMercy Health St. [facility]11-21-2024 NoteHol[facility]11-14-2024 Telephone encounter Note* Telephone Encounter - Stephanie Tim, JORDI - 05/23/2024 7:38 AM EST Please contact pt, I reviewed her notes from Dr Mayo, I see she is going to see him back in a fewmonths, he also recommended she see an sand caster apprentice d/t one of her thyroid labs trending toward an over active state. It is time to recheck those thyroid labs and if they are still off then I willsend her to see endo No fasting is needed for labs, have her get these done in the next week please [place] [facility] [id number] Miscellaneous Notes* Telephone Encounter - Stephanie Dumont NP - 05/23/2024 7:38 AM EST Please contact pt, I reviewed her notes from Dr Mayo, I see she is going to see him back in a fewmonths, he also recommended she see an sand caster apprentice d/t one of her thyroid labs trending toward an over active state. It is time to recheck those thyroid labs and if they are still off then I willsend her to see endo No fasting is needed for labs, have her get these done in the next week please [place] documented in this encounterMercy Hospital St. [id number] NoteHX LT TIB/FIB FX WITH EXTERNAL FIX; PT [...] bone scan films to appointment with Dr [facility] of [facility]11-06-2024 History of Present illness Narrative* Mar Mayo MD - 05/15/2024 2:20 PM EST Subjective Patient ID: Andrei Fish is a 73 y.o. female who presents for Thyroid Nodule (FNA 04/16/24 [facility]) Pt had a thyroid US after found to have a low TSH. US showed a 13mm and 20mm RT TR4 nodule and a 21mm LT TR3 nodule. Path sowed a Mil[place] 2 nodule. No radiation exposure. No family [...] Obstructive sleep apnea syndrome 05/13/2021 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[facility]/HCC) 06/28/2022 Tobacco dependence 06/28/2022 Dry mouth 01/05/2017 Compression syndrome, nerve 06/28/2022 Abnormal weight loss 03/03/2016 Age-related osteoporosis without current pathological fracture ([facility]) 06/06/2023 Ruptured ear drum, left 06/06/2023 Leg pain, bilateral 06/06/2023 Left wrist pain 06/06/2023 Obesity (BMI 30-39.9) 06/06/2023 Claudication of both lower extremities ([facility]) 06/08/2023 PAD (peripheral artery disease) ([facility]) 06/08/2023 Hyperkalemia with normal acid-base balance 11/27/2023 Cholesteatoma of left ear 11/14/2023 HL (hearing loss) 06/28/2022 Immune thrombocytopenic purpura ([facility]) 03/03/2016 Perforation of left tympanic membrane 06/29/2022 Other forms of systemic lupus erythematosus ([facility]/HCC) 11/28/2023 Other fatigue 11/28/2023 Weakness of both legs 11/28/2023 Systemic lupus erythematosus, unspecified ([facility]) 02/12/2024 Lumbar back pain 02/12/2024 Thyroid nodule ([facility]) 02/26/2024 Coronary artery disease involving [place] coronary artery of [place] heart ([facility]) 02/26/2024 Calcification of aortic valve 02/26/2024 PAH (pulmonary artery hypertension) ([facility]) 03/27/2024 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 (Infectious disease) States medication was given too fast. Hfkqgij-Dcifbr-Ibltu Pertussis Rash Current Outpatient Medications on File [...] 0.5 tablets (12.5 mg) by mouth Daily Donot crush or chew. 45 tablet 1 pilocarpine (Salagen) 5 MG tablet Take 1 tablet by mouth in the morning and 1 tablet in the eveningand 1 tablet before bedtime. spironolactone (Aldactone) 25 [...] surgery eventually be needed documented in this encounterMercy Hospital St. [id number] History of Present illness Narrative* Stephanie Dumont NP - 05/14/2024 11:57 AM ESTAssociated Problem(s): Essential hypertension (CMS/HCC) No dose changes in meds * FREDDY HAMILTON - 05/14/2024 10:30 AM EST Pt seen dr curran yesterday- she is going to be seen in [place] for her left knee elimination? * Stephanie Dumont NP - 05/14/2024 10:30 AM EST Images from the original note [...] Hospitalizations in the last year: none Specialist: Maria Esther Sorto and Prema Royal (both ENT), Maria Ines Butterfield [facility], HCPOA/Living Will: No Concerns: seeing ortho in [place] SUBJECTIVE: MEDICATIONS: Current Outpatient Medications Medication Instructions [...] disease) States medication was given too fast. Gzazufp-Vbjmjt-Mfkoz Pertussis Rash REVIEW OF SYMPTOMS: Review of [...] of the risks of continued smoking: stroke, DC, all forms of cancer, lung disease, and [...] cessation. Age-related osteoporosis without current pathological fracture (CMS/HCC) Relevant Orders DEXA bone density Obesity (BMI 30-39.9) Coronary artery disease involving [place] coronary artery of [place] heart (CMS/HCC) Stress test was negative Pre-diabetes Check blood sugars daily, notify if <70 or >200. Take medications (pills or insulin) as directed. Monitor for s/s of hypoglycemia (sweaty, dizziness, nausea, vomiting, or shakiness). Watch for increase in thirst, urination, or appetite. Inspect feet frequently monitoring for open wounds , andalso recommend yearly eye exam. Pt should attempt [...] well. I have recommended eating a balanced diet,as well as activity as chronic conditions allow It is recommended that the patient have a yearly eye exam, as well as twice a year dental exams Fu in this office for wellness on a yearly basis * Stephanie Dumont NP - 05/14/2024 6:29 AM ESTAssociated Problem(s): Coronary artery disease involving [place] coronary artery of [place] heart (CMS/HCC) Stress test was negative * Stephanie Dumont NP - 05/14/2024 6:26 AM ESTAssociated Problem(s): Pre-diabetes Check blood sugars daily, notify if <70 or >200. Take medications (pills or insulin) as directed. Monitor for s/s of hypoglycemia (sweaty, dizziness, nausea, vomiting, or shakiness). Watch for increase in thirst, urination, or appetite. Inspect feet frequently monitoring for open wounds , andalso recommend yearly eye exam. Pt should attempt to remain as physically active as chronic conditions allow, as well as trying to follow a diet low in carbohydrates, and simple sugars. UTD on A1c test * Stephanie Dumont NP - 05/14/2024 6:25 AM ESTAssociated Problem(s): Tobacco dependence The patient has been advised of the risks of continued smoking: stroke, DC, all forms of cancer, lung disease, and [...] smoking cessation. * Stephanie Dumont NP - 05/14/2024 6:24 AM ESTAssociated Problem(s): Encounter for subsequent annual wellness visit (AWV) in Medicare patient I have reviewed Ht/Wt/BMI, I have reviewed recommended vaccines for patient's age, as well as all recommended screenings I have reviewed available care everywhere notes as well. I have recommended eating a balanced diet,as well as activity as chronic conditions allow It is recommended that the patient have a yearly eye exam, as well as twice a year dental exams Fu in this office for wellness on a yearly basis documented in this encounterMercy Hospital St. [id number] History of Present illness Narrative* Jr. Herson Avalos, - 05/13/2024 10:45 AM EST HISTORY OF PRESENT ILLNESS: EST PT Andrei [...] SOME MEDIAL KNEE PAIN- C/O WEAKNESS POSTERIOR KNEE-WEARS COMPRESSION STOCKINGS- DIFFICULTY WALKING LONG DISTANCES- NOTES LEG CRAMPING-+TYLENOL/IBUPROFEN PRN ALLERGIES: Allergies Allergen Reactions Vancomycin Other States had burning sensation t/o entire body. (Infectious disease) States medication was given too fast. Glctnnp-Gwlsmx-Sqrdw Pertussis Rash HOME MEDICATIONS: Current Outpatient Medications [...] and discussed L-Spine xrays and bone scan results.She denies s/s of infection including, but not limited to : no fever, chills. After examination today we are recommending a referral to Dr. Walls / Dr. Berger for further evaluation and to r/o an infection with patient's verbal agreerance. We have discussed her HEP and restrictions and will see her back on a prn basis. Herson Avalos D.O. documented in this [facility]10-17-2024 Telephone encounter Note* Telephone Encounter - Stephanie Dumont NP - 04/25/2024 8:16 AM EDT Let the patient know that I did go ahead and do a referral to Dr Mayo for her thyroid biopsy so that we can see what his opinion is on what to do next [place] [facility] [id number] Miscellaneous Notes* Telephone Encounter - Stephanie Dumont NP - 04/25/2024 8:16 AM EDT Let the patient know that I did go ahead and do a referral to Dr Mayo for her thyroid biopsy so that we can see what his opinion is on what to do next [place] documented in this [facility]10-16-2024 History of Present illness Narrative* Stephanie Dumont NP - 04/24/2024 12:01 PM EDTAssociated Problem(s): Diarrhea No fever, blood or abd pain It is intermittent Will monitor at this time * Stephanie Dumont NP - 04/24/2024 12:00 PM EDTAssociated Problem(s): Pre-diabetes Limit carbs/ sugary foods/drinks Will hold on meds at this time Monitor A1c in 3 months * Stephanie Dumont NP - 04/24/2024 12:00 PM EDTAssociated Problem(s): Thyroid nodule (CMS/HCC) Biopsy resolved, bethesda-nondiagnostic, rare benign thyroid follicular cells * Stephanie Dumont NP - 04/24/2024 11:59 AM EDTAssociated Problem(s): Coronary artery disease involving [place] coronary artery of [place] heart (CMS/HCC) No acute chest pain See ECHO results Has stress test next week Cont b clarke * FREDDY HAMILTON - 04/24/2024 11:00 AM EDT PT States she has been having on [...] to taste anything and having poor appetite * Stephanie Dumont NP - 04/24/2024 11:00 AM EDT Images from the original [...] disease) States medication was given too fast. Vibrhzv-Dxdoin-Oludn Pertussis Rash REVIEW OF SYMPTOMS: Review of [...] thyroid follicular cells Coronary artery disease involving [place] coronary artery of [place] heart (CMS/HCC) No acute chest pain See ECHO results Has stress test next week Cont b clarke Pre-diabetes Limit carbs/ sugary foods/drinks Will hold on meds at this time Monitor A1c in 3 months Diarrhea No fever, blood or abd pain It is intermittent Will monitor at this time * Stephanie Dumont NP - 04/24/2024 7:08 AM EDTAssociated Problem(s): Immune thrombocytopenic purpura (CMS/HCC) Fu as per Hem/onc documented in this encounterMercy Hospital St. [id number] Nurse Note* Joanne Alvarez MA - 04/18/2024 11:57 AM EDT Patient Identification confirmed: yes. Injection given and documented on MAR per provider order. Joanne Alvarez MA [facility]10-10-2024 Nurse Note* Joanne Alvarez MA - 04/18/2024 11:57 AM EDT Patient Identification confirmed: yes. Injection given and documented on MAR per provider order. Joanne Alvarez MA documented in this encounterMercy Health St. [facility]10-10-2024 Instructions* Patient Instructions* Emani Brizuela - 04/18/2024 11:40 AM EDT B12 shot today and q 6 weeks Continue Tavalisse 100 mg BID RTC in 6 weeks Labs same day documented in this encounterMer[facility] Health St. [facility]10-10-2024 History of Present illness Narrative* Rinku Ramsey MD - 04/18/2024 11:15 AM EDT NAME: Andrei Fish [facility] NO.: [id number] DATE OF SERVICE: April 18, 2024 (fabiola) Some elements in this clinic note [...] focally thickened loop of bowel. No fluid collectionsin the abdomen/pelvis. Infrarenal 31 mm AAA. 11/20/2021 [...] 2017 - Rituxan X 4 Updated Visit, April 18, 2024: Andrei returns for a follow up. Her anemia has improved since February, platelet count is within normalranges. Will continue her current treatment regimen. She [...] is going to follow up with her SEMICONDUCTOR EQUIPMENT TECHNICIAN regarding pulmonary nodule that has been stable on our recordssin2019, thyroid nodule, and echocardiogram for possible valvular [...] her anemia. Chemistries and other labs still inprocess. We discussed she does't have a need for B12 or folic acid replacement at this time, but wecan monitor this. Updated Visit, June 05, 2023: Andrei returns for follow up. Remains on Tavalisse 100 mg BID. She reports having a mamm[facility] and [facility] at [facility] [facility] her PCP. She states that [...] for follow-up on 08/30/2022. She is scheduled forrenal ultrasound and blood work on 08/29/2022 and then a follow-up with her textile screen maker on 09/07/2022. Overall, she is doing well [...] as they are slightlyincreased. Got back from [place] and saw her sisters and had a [...] had a consultation with nephrology, Dr. Gilson Ceja. Dr. Ceja increased her losartan to 50 mg daily. [...] why she was going to see a textile screen maker for her blood pressure. Patient also has [...] which included preparing to see the patient, prua-pp-fway patient care, completing clinical documentation, obtaining and/or reviewing separately obtained history, performing a medically appropriate examination, counseling and educating the patient/family/caregiver, ordering medications, tests, or procedures, communicating with other HCPs (not separately reported), independently interpreting results (not separately reported), communicating results to the patient/family/caregiver, and care coordination (not separately reported). Rinku Ramsey MD, CPE Hematology and Oncology Services Provided at: [place], [place] Scribe Attestation: This note was scribed by Emani Brizuela on April 18, 2024 under the direction and supervision of Dr. Rinku Ramsey. I attest that all of the information documented is correct to the best of myknowledge. Provider Attestation: I, Rinku Ramsey MD, attest that all information documented by the above scribe is correct, and was supervised by me and under my direction. CC: Dr. Atif Graf documented in this encounterMer[facility]10[facility]10[facility]24 [facility] Telephone encounter Note* Telephone Encounter - FREDDY HAMILTON - 04/10/2024 6:13 PM EDT pt called about her metoprolol being on hold at her pharmacy, she just took her last (1/2 pill) today. pt was asking if she is suppose to hold off on this medication? [facility] [id number] Miscellaneous Notes* Telephone Encounter - FREDDY HAMILTON - 04/10/2024 6:13 PM EDT pt called about her metoprolol being on hold at her pharmacy, she just took her last (1/2 pill) today. pt was asking if she is suppose to hold off on this medication? documented in this encounterMercy Hospital St. [id number] Telephone encounter Note* Telephone Encounter - Rinku Ramsey MD - 04/09/2024 3:22 PM EDT No further instructions - you are right on. [facility]10-01-2024 Miscellaneous Notes* Telephone Encounter - Rinku Ramsey MD - 04/09/2024 3:22 PM EDT No further instructions - you are right on. * Telephone Encounter - Desirae Pimentel RN - 04/09/2024 9:10 AM EDT Pt SEMICONDUCTOR EQUIPMENT TECHNICIAN Stephanie called to inquire if there are any special instructions/ recommendations for schedule thyroid fine needle bx at [facility]. 03/05/24 platelet result 144. Encouraged to [...] recommendations? Desirae Pimentel RN documented in this encounterMercy Health St. [facility]10-01-2024 History of Present illness Narrative* LISA Sanchez - 04/09/2024 10:15 AM EDT Images from the original note [...] disease) States medication was given too fast. Dhouygk-Jxpryk-Sjfaf Pertussis Rash HOME MEDICATIONS: Current Outpatient Medications [...] Normal TIMA on 03/01/24 for vascular flow Gray Pt notes occ posterior knee pain. Not [...] for requiring urgent evaluation. documented in this encounterMercy Hospital St. [id number] Telephone encounter Note* Telephone Encounter - Desirae Pimentel RN - 04/09/2024 9:10 AM EDT Pt SEMICONDUCTOR EQUIPMENT TECHNICIAN Stephanie called to inquire if there are any special instructions/ recommendations for schedule thyroid fine needle bx at [facility]. 03/05/24 platelet result 144. Encouraged to ask radiology dept if they have any requirements for platelet number. Also recommend recheck CBC prior to verify no drastic changes, and standard bleeding precautions following, should platelets remain at a stable number. She will call with any further needs or concerns once she discusses with radiology team. Loulou: Any further recommendations? Desirae Pimentel RN [facility]09-27-2024 Telephone encounter Note* Telephone Encounter - Desirae Pimentel RN - 04/05/2024 3:49 PM EDT Printed and signed by Loulou. Faxed to [phone], as requested. Desirae Pimentel RN [facility]09-27-2024 Miscellaneous Notes* Telephone Encounter - Desirae Pimentel RN - 04/05/2024 3:49 PM EDT Printed and signed by Loulou. Faxed to [phone], as requested. Desirae Pimentel, RN * Telephone Encounter - Krista Harden RPh - 04/02/2024 2:42 PM EDT Please send this to Dr Ramsey 04/03/24. This is set to print. Emiliano Harden, KrissD, BCOP documented in this encounterMercy Health St. [facility]09-26-2024 History of Present illness Narrative* Stephanie Dumont NP - 04/04/2024 10:37 AM EDTAssociated Problem(s): Posterior left knee pain Will refer to ortho, I am unclear if this is deg related to trauma Other differentials: lumbar etiology , or PAD * Stephanie Dumont NP - 04/04/2024 10:36 AM EDTAssociated Problem(s): Other chest pain Check stress test * Stephanie Dumont NP - 04/04/2024 10:36 AM EDTAssociated Problem(s): Elevated glucose level Check A1c Family hx DM, * Stephanie Dumont NP - 04/04/2024 10:35 AM EDTAssociated Problem(s): Disease of thyroid gland (CMS/HCC) Check labs, await thyroid US results * Stephanie Dumont NP - 04/04/2024 10:35 AM EDTAssociated Problem(s): Coronary artery disease involving [place] coronary artery of [place] heart (CMS/HCC) Reviewed ECHO Will order stress test * Stephanie Dumont NP - 04/04/2024 10:32 AM EDTAssociated Problem(s): Essential hypertension (CMS/HCC) Stable, no med dose chagnes * FREDDY HAMILTON - 04/04/2024 9:40 AM EDT [facility]-john [phone] Cardiology- Dr west Pt had a pos covid test 03/12, she states she has loss her sense of smell and taste, she feels like her tongue is bigger than it actually is. Pt is still having weakness behind left knee- no pain but it does make her feel dizzy and nauseous. * Stephanie Dumont NP - 04/04/2024 9:40 AM EDT Images from the original note [...] No NT in hands or feet, no newonset of fatigue. Left leg weakness: worse with [...] morning with a full glass of water, john empty stomach, and do not take anything [...] disease) States medication was given too fast. Echshiu-Lfkrjo-Ffphx Pertussis Rash REVIEW OF SYMPTOMS: Review of [...] Obesity (BMI 30-39.9) Coronary artery disease involving [place] coronary artery of [place] heart (CMS/HCC) Reviewed ECHO Will order stress [...] referral to Orthopaedic Surgery documented in this encounterMercy Hospital St. [id number] Telephone encounter Note* Telephone Encounter - Krista Harden RPh - 04/02/2024 2:42 PM EDT Please send this to Dr Ramsey 04/03/24. This is set to print. Emiliano Harden, KrissD, BCOP [facility] Work Phone: [phone] History of Present illness Narrative* Stephanie Dumont NP - 03/27/2024 1:10 PM EDTAssociated Problem(s): Obstructive sleep apnea syndrome Tested in the past, never treated * Stephanie Dumont NP - 03/27/2024 1:08 PM EDTAssociated Problem(s): PAH (pulmonary artery hypertension) ([facility]) Per ECHO Elevated pressures, has hx of ADALBERTO, not treated documented in this encounterMercy Hospital St. [id number] Nurse Note* Joanne Alvarez MA - 03/05/2024 11:40 AM EDT Patient Identification confirmed: yes. Injection given and documented on MAR per provider order. Joanne Alvarez MA [facility]08-27-2024 Nurse Note* Joanne Alvarez MA - 03/05/2024 11:40 AM EDT Patient Identification confirmed: yes. Injection given and documented on MAR per provider order. Joanne Alvarez MA documented in this encounterMercy Health St. [facility]08-27-2024 Instructions* Patient Instructions* Emani Brizuela - 03/05/2024 11:20 AM EDT B12 shot today and q 6 weeks Continue Tavalisse 100 mg BID RTC in 6 weeks Labs same day documented in this encounterMercy Health St. [facility]08-27-2024 History of Present illness Narrative* Rinku Ramsey MD - 03/05/2024 10:30 AM EDT Images from the original note were not included. NAME: Andrei Fish CLINIC NO.: [id number] DATE OF SERVICE: March 05, 2024 (Joon) [...] focally thickened loop of bowel. No fluid collectionsin the abdomen/pelvis. Infrarenal 31 mm AAA. 11/20/2021 [...] is going to follow up with her SEMICONDUCTOR EQUIPMENT TECHNICIAN regarding pulmonary nodule that has been stable on our recordssin2019, thyroid nodule, and echocardiogram for possible valvular [...] her anemia. Chemistries and other labs still inprocess. We discussed she does't have a need for B12 or folic acid replacement at this time, but wecan monitor this. Updated Visit, June 05, 2023: Andrei returns for follow up. Remains on Tavalisse 100 mg BID. She reports having a mammogram and dexa scan at [facility] per her PCP. She states that [...] for follow-up on 08/30/2022. She is scheduled forrenal ultrasound and blood work on 08/29/2022 and then a follow-up with her textile screen maker on 09/07/2022. Overall, she is doing well [...] as they are slightlyincreased. Got back from [place] and saw her sisters and had a [...] had a consultation with nephrology, Dr. Gilson Ceja. Dr. Ceja increased her losartan to 50 mg daily. [...] why she was going to see a textile screen maker for her blood pressure. Patient also has [...] very well. Updated Visit, January 02, 2020: nAdrei is 69 yo and is doing well. [...] which included preparing to see the patient, ethm-cc-tzgi patient care, completing clinical documentation, obtaining and/or reviewing separately obtained history, performing a medically appropriate examination, counseling and educating the patient/family/caregiver, ordering medications, tests, or procedures, communicating with other HCPs (not separately reported), independently interpreting results (not separately reported), communicating results to the patient/family/caregiver, and care coordination (not separately reported). Rinku Ramsey MD, CPE Hematology and Oncology Services Provided at: [place], [place] Scribe Attestation: This note was scribed [...] CC: Dr. Atif Graf documented in this encounterMercy Health St. [facility]08-26-2024 History of Present illness Narrative* Stephanie Dumont NP - 03/04/2024 12:46 PM EDTAssociated Problem(s): Thyroid nodule (CMS/HCC) Thyroid US * Stephanie Dumont NP - 03/04/2024 12:46 PM EDTAssociated Problem(s): Essential hypertension (CMS/HCC) stable * Stephanie Dumont NP - 03/04/2024 12:46 PM EDTAssociated Problem(s): Coronary artery disease involving [place] coronary artery of [place] heart (CMS/HCC) Strong family hx of CAD Vague c.o pressure chest from time to time Will order ECHO Add Toprol XL 12.5mg daily Await her to let me know which transportation inspector referral * Stephanie Dumont NP - 03/04/2024 12:44 PM EDTAssociated Problem(s): Calcification of aortic valve Per CT chest, will get ECHO * Stephanie Dumont NP - 03/04/2024 10:30 AM EDT Images from the original [...] who does cardiology through [facility] closer to [place] will call me tomorrow Thyroid nodule: incidental finding no pain SUBJECTIVE: MEDICATIONS: Current Outpatient Medications Medication Instructions alendronate (FOSAMAX) 70 mg, Oral, Every 7 days, Take in the morning with a full glass of water, john empty stomach, and do not take anything [...] disease) States medication was given too fast. Ntygwfi-Ihaiek-Emyah Pertussis Rash REVIEW OF SYMPTOMS: Review of [...] (CMS/HCC) Thyroid US Coronary artery disease involving [place] coronary artery of [place] heart (CMS/HCC) - Primary Strong family hx of CAD Vague c.o pressure chest from time to time Will order ECHO Add Toprol XL 12.5mg daily Await her to let me know which transportation inspector referral Relevant Medications metoprolol succinate XL (Toprol-XL) 25 MG 24 hr tablet Calcification of aortic valve Per CT chest, will get ECHO documented in this encounterMercy Hospital St. [id number] Instructions* Patient Instructions* Emani Carr - 02/02/2024 1:48 PM EDT Continue Tavalisse 100 mg BID RTC in 6 weeks for labs and follow up documented in this encounterMercy Health St. [facility]07-26-2024 History of Present illness Narrative* Rinku Ramsey MD - 02/02/2024 1:30 PM EDT Images from the original note were not included. NAME: Andrei Fish [facility] NO.: [id number] DATE OF SERVICE: February 02, 2024 [facility] Some elements in this clinic note that [...] at and is clear from my perspective toproceed as long as platelets remain above 100k. [...] focally thickened loop of bowel. No fluid collectionsin the abdomen/pelvis. Infrarenal 31 mm AAA. 11/20/2021 [...] her anemia. Chemistries and other labs still inprocess. We discussed she does't have a need for B12 or folic acid replacement at this time, but wecan monitor this. Updated Visit, June 05, 2023: Andrei returns for follow up. Remains on Tavalisse 100 mg BID. She reports having a mammogram and dexa scan at [facility] per her PCP. She states that [...] for follow-up on 08/30/2022. She is scheduled forrenal ultrasound and blood work on 08/29/2022 and then a follow-up with her textile screen maker on 09/07/2022. Overall, she is doing well [...] as they are slightlyincreased. Got back from [place] and saw her sisters and had a [...] had a consultation with nephrology, Dr. Gilson Ceja. Dr. Ceja increased her losartan to 50 mg daily. [...] why she was going to see a textile screen maker for her blood pressure. Patient also has [...] which included preparing to see the patient, nhyj-tc-gzex patient care, completing clinical documentation, obtaining and/or reviewing separately obtained history, performing a medically appropriate examination, counseling and educating the patient/family/caregiver, ordering medications, tests, or procedures, communicating with other HCPs (not separately reported), independently interpreting results (not separately reported), communicating results to the patient/family/caregiver, and care coordination (not separately reported). Rinku Ramsey MD, CPE Hematology and Oncology Services Provided at: [place], [place] Scribe Attestation: This note was scribed [...] CC: Dr. Atif Graf documented in this encounterMercy Health St. [facility]07-18-2024 Telephone encounter Note * Telephone Encounter - Desirae Pimentel RN - 01/25/2024 10:29 AM EDT Loulou: please sign pended refill, if agreeable Desirae Pimentel RN [facility]07-18-2024 Miscellaneous Notes* Telephone Encounter - Desirae Pimentel RN - 01/25/2024 10:29 AM EDT Loulou: please sign pended refill, if agreeable Desirae Pimentel RN documented in this encounterMercy Health St. [facility]06-25-2024 History of Present illness Narrative* Emani Gutiérrez MD - 01/02/2024 1:15 PM EDT History Of Present Illness: Andrei Fish is a 73 y.o. 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 Augie Tyler at [facility]. She was told in 2016 that she would needrevision surgery as the prosthesis has broken down, [...] one episode of otalgia which occurred yesterday for5-10 minutes, felt like a sharp pain, and [...] has a 11.3 pack-year smoking history. She hasnever used smokeless tobacco. She reports that she [...] times daily ergocalciferol (Vitamin D-2) 1.25 MG (91822 UT) capsule 1 capsule, oral, Weekly fostamatinib [...] December [address] Augie Tyler at [facility]. She was told in 2016 that she would need revision surgeryas the prosthesis has broken down, but she [...] with Dr. Graf. Will discuss timing of second- look at that time (patient expressed preference for Spring 2024 or later). documented in this encounterUnVan [facility]ert [facility] Work Phone: 1(671) 171-967906-10-2024 Miscellaneous Notes* Perioperative Nursing Note - Bernardino Mayen RN - 12/18/2023 12:47 PM EDT 1247: Phase 1 care begins 1313: Pt family updated via message 1405: 975 tylenol given per emr order 1420: Phase 2 care begins documented in this encounterUnVan Wert [facility] Hospital Work Phone: 1(718) 891-325406-10-2024 Note* Perioperative Nursing Note - Bernardino Mayen RN - 12/18/2023 12:47 PM EDT 1247: Phase 1 care begins 1313: Pt family updated via message 1405: 975 tylenol given per emr order 1420: Phase 2 care begins [facility]06-10-2024 Hospital Discharge instructions* Discharge Instructions* Fly Lindo MD - 12/18/2023 12:42 PM EDT Images from the original note were not included. Most ear surgeries should have a 2-4 week postoperative appointment. Please be sure to call the doctor's office and make a follow-up appointment, if you don't already have it. Dressing or Band-Aid can be removed the day after surgery. Once removed, replace the cotton ball inthe ear as needed. Once the dressing is off, and if you have an incision behind your ear with stitches, clean the incision twice daily with soap and water and apply Vaseline or antibiotic ointment after cleaning. If you have paper strips or surgical glue over the incision, Do not apply anything behi nd the ear. Bloody drainage from the ear [...] your hearing may sound muffled and your voicemay echo in your ear during speech. Minor swelling of the face on the same side of the surgery is not uncommon. Small bruising near theeye or mouth is not uncommon from the [...] suggestions for your care. documented in this [facility] Work Phone: 1(352) 576-269106-10-2024 History and physical note* Fly Lindo MD - 12/18/2023 7:13 AM EDT History Of Present Illness Andrei Fish is [...] has a 11.3 pack-year smoking history. She hasnever used smokeless tobacco. She reports that she [...] cartilage graft, possible OCR Fly Lindo MD [facility] Work Phone: 1(902) 909-463006-10-2024 History and physical note* Fly Lindo MD - 12/18/2023 7:13 AM EDT History Of Present Illness Andrei Fish is [...] has a 11.3 pack-year smoking history. She hasnever used smokeless tobacco. She reports that she [...] OCR Fly Lindo MD [facility] in [facility]Tr[facility] Work Phone: 1([phone]) 793-981506-07-2024 Nurse Note* Joanne Alvarez MA - 12/15/2023 11:40 AM EDT Patient identified by 2 identifiers. EKG performed as ordered. Joanne Alvarez MA [facility]06-07-2024 Nurse Note* Joanne Alvarez MA - 12/15/2023 11:40 AM EDT Patient identified by 2 identifiers. EKG performed as ordered. Joanne Alvarez MA documented in this encounterMercy Health St. [facility]05-21-2024 Telephone encounter Note * Telephone Encounter - Rinku Ramsey MD - 11/28/2023 2:35 PM EDT Called thanks [facility]05-21-2024 Miscellaneous Notes* Telephone Encounter - Rinku Ramsey MD - 11/28/2023 2:35 PM EDT Called thanks * Telephone Encounter - Emilia Robins RN - 11/28/2023 11:[address] Graf ( ENT) is requesting to speak w/ you regarding Odes. Please call her @ [phone]. Anayeli, Emilia Robins RN documented in this encounterMercy Health St. [facility]05-21-2024 Telephone encounter Note * Telephone Encounter - Emilia Robins RN - 11/28/2023 11:[address] Graf ( ENT) is requesting to speak w/ you regarding Odes. Please call her @ [phone]. Thanks, Emilia Robins, RN [facility] Work Phone: [phone]) [phone] Instructions* Patient Instructions* Rinku Ramsey MD - 11/24/2023 11:28 AM EDT Continue Tavalisse 100 mg BID Return in 6 weeks for labs and follow up documented in this encounterMercy Health St. [facility]05-17-2024 History of Present illness Narrative* Rinku Ramsey MD - 11/24/2023 10:45 AM EDT Images from the original note were not included. NAME: Andrei Fish [facility] NO.: [id number] DATE OF SERVICE: November 24, 2023 (Joon) Some elements in this clinic note that are critical to medical decision making have been carefully reviewed and included from a prior clinic note dated: October 13 2023 (Mary). Additional Clinicians involved in Paulalicia Fish's care: Dr. Shay, Dr. Deluna, Dr. [...] at and is clear from my perspective toproceed as long as platelets remain above 100k. [...] focally thickened loop of bowel. No fluid collectionsin the abdomen/pelvis. Infrarenal 31 mm AAA. 11/20/2021 [...] her anemia. Chemistries and other labs still inprocess. We discussed she does't have a need for B12 or folic acid replacement at this time, but wecan monitor this. Updated Visit, June 05, 2023: Andrei returns for follow up. Remains on Tavalisse 100 mg BID. She reports having a mammogram and dexa scan at [facility] per her PCP. She states that [...] for follow-up on 08/30/2022. She is scheduled forrenal ultrasound and blood work on 08/29/2022 and then a follow-up with her textile screen maker on 09/07/2022. Overall, she is doing well [...] as they are slightlyincreased. Got back from [place] and saw her sisters and had a [...] had a consultation with nephrology, Dr. Gilson Ceja. Dr. Ceja increased her losartan to 50 mg daily. [...] why she was going to see a textile screen maker for her blood pressure. Patient also has [...] which included preparing to see the patient, hvxj-fu-wbwp patient care, completing clinical documentation, obtaining and/or reviewing separately obtained history, performing a medically appropriate examination, counseling and educating the patient/family/caregiver, ordering medications, tests, or procedures, communicating with other HCPs (not separately reported), independently interpreting results (not separately reported), communicating results to the patient/family/caregiver, and care coordination (not separately reported). Rinku Ramsey MD, CPE Hematology and Oncology Services Provided at: [place], [place] CC: Dr. Chadd Graf documented in this encounterMercy Health St. [facility]05-07-2024 History of Present illness Narrative* Susanna Graf MD - 11/14/2023 1:45 PM EDT History Of Present Illness: Andrei Fish is a 72 y.o. female whom presents to me as a new patient for left- sided TM perforation,referred here today by Dr. Mar Mayo. She is status post left-sided tympanoplasty with OCR in December of [address] Augie Tyler at [facility]. In 2017, was told by Dr. Tyler that she would require revision surgery for the tympanoplasty as the prosthesis had broken down. However, she was unable to get this revision surgery. She notes that in the past year, hearing in the L ear has become particularly muffled, and endorses intermittent tinnitus. Only one episode of otalgia which occurredyesterday for 5-10 minutes, felt like a sharp pain, and resolved on its own. Denies otorrhea. Pt uses q tips but only on the outside and edges. In the past year, has also been experiencing dizziness,losing balance and leaning more to the L [...] Dr. Mar Mayo. She is status post left- sided tympanoplasty with OCR in December of [address] Augie Tyler at [facility]. Patient's dizziness also is likely d/t tympanic perforation. Patient will require L sided tympanomastoidectomy canal wall up with ossiculoplasty, cartilage graft. Discussed risks and benefits with patient. Tamela Garsia, MS4 I have reviewed the documentation as scribed by Tamela Garsia and agree with the notes. Susanna Graf MD documented in this [facility] Work Phone: [phone] Instructions* Patient Instructions* Nereida Tai Pat - 11/14/2023 1:45 PM EDT Welcome to Dr. Graf's clinic. We are here to assist you through your ENT care at [facility]. Dr. Graf is an Ear surgeon. This means that she specializes in taking care of patients with complex ear problems. Dr. Graf's office number is [phone]. While you may see her at a satellite office, she has a team committed to help meet your healthcare needs at [facility]. This number is the most direct way to communicate with the office. Jasmyne is Dr. Graf's alumni secretary and she answers the office phone [...] may include dieticians, social workers, speech therapists, tile applicator, neurologist, and physical therapist. Dr. Graf will provide these referrals as needed. Please let her know if you would like to request a specific referral. For your convenience, Dr. Graf sees patients at several [facility] locations including [facility] and [facility] at the main campus of [facility]. While we try tomake your appointments as convenient as possible, occasionally a visit to another location may be ne cessary to provide the best care for you. We look forward to working with you to meet your healthcare goals. Dr. Graf makes every effort to run on time for your appointments. Therefore, if you are more than 30 minutes late unrelated to a scan or another appointment such therapy or audio you will have to reschedule. documented in this [facility] Work Phone: [phone] 499-382004-05-2024 History of Present illness Narrative* Ana Hernandez PA-C - 10/13/2023 1:30 PM EDT Images from the original note were not included. NAME: FishAndrei CLINIC NO.: [id number] DATE OF SERVICE: October 13 2023 (Mary) [...] focally thickened loop of bowel. No fluid collectionsin the abdomen/pelvis. Infrarenal 31 mm AAA. 11/20/2021 [...] for follow up. She reports that on [place] she had an episode of hypotension [...] her anemia. Chemistries and other labs still inprocess. We discussed she does't have a need for B12 or folic acid replacement at this time, but wecan monitor this. Updated Visit, June 05, 2023: Andrei returns for follow up. Remains on Tavalisse 100 mg BID. She reports having a mammogram and dexa scan at [facility] per her PCP. She states that [...] for follow-up on 08/30/2022. She is scheduled forrenal ultrasound and blood work on 08/29/2022 and then a follow-up with her textile screen maker on 09/07/2022. Overall, she is doing well [...] resolved. Updated Visit, May 12, 2022: Andrei Fihs returns for follow-up. She [...] as they are slightlyincreased. Got back from [place] and saw her sisters and had a [...] had a consultation with nephrology, Dr. Gilson Ceja. Dr. Ceja increased her losartan to 50 mg daily. [...] why she was going to see a textile screen maker for her blood pressure. Patient also has [...] PA-C Hematology and Oncology Services Provided at: [place], [place] CC: Dr. Chadd Deluna documented in this encounterMercy Health [facility]02-26-2024 Miscellaneous Notes* Telephone Encounter - Jayden Connelly APRN.ROUTE SALES MANAGER - 09/04/2023 12:27 PM EST The following approved medication requests have been transmitted electronically. Requested Prescriptions Signed Prescriptions Disp Refills losartan (COZAAR) 25 mg tablet 180 tablet 3 Sig: take 2 tablets by mouth every day at bedtime Authorizing Provider: JAYDEN CONNELLY APRN.ROUTE SALES MANAGER documented in this encounterMercy Health St. [facility]02-19-2024 Instructions* Patient Instructions* Rinku Ramsey MD - 08/28/2023 2:54 PM EST Continue Tavalisse 100 mg twice daily. Follow up in 6 weeks with labs. documented in this encounterMercy Health St. [facility]02-19-2024 History of Present illness Narrative* Rinku Ramsey MD - 08/28/2023 2:45 PM EST Images from the original note were not included. NAME: AbeAndrei [facility] NO.: [id number] DATE OF SERVICE: August 28, 2023 ([facility]) Some elements in this clinic note that [...] focally thickened loop of bowel. No fluid collectionsin the abdomen/pelvis. Infrarenal 31 mm AAA. 11/20/2021 [...] her anemia. Chemistries and other labs still inprocess. We discussed she does't have a need for B12 or folic acid replacement at this time, but wecan monitor this. Updated Visit, June 05, 2023: Andrei returns for follow up. Remains on Tavalisse 100 mg BID. She reports having a mammogram and dexa scan at [facility] per her PCP. She states that [...] for follow-up on 08/30/2022. She is scheduled forrenal ultrasound and blood work on 08/29/2022 and then a follow-up with her textile screen maker on 09/07/2022. Overall, she is doing well [...] as they are slightlyincreased. Got back from [place] and saw her sisters and had a [...] had a consultation with nephrology, Dr. Gilson Ceja. Dr. Ceja increased her losartan to 50 mg daily. [...] why she was going to see a textile screen maker for her blood pressure. Patient also has [...] which included preparing to see the patient, [id number] patient care, completing clinical documentation, performing a medically appropriate examination, counseling and educating the patient/family/caregiver, ordering medications, tests, or p rocedures, independently interpreting results (not separately reported), communicating results to the patient/family/caregiver, and care coordination (not separately reported). Rinku Ramsey MD, CPE Hematology and Oncology Services Provided at: [place], [place] Scribe Attestation: This note was scribed by Emani Carr on August 28, 2023 under the direction and supervisionof Dr. Rinku Ramsey. I attest that all of the information documented is correct to the best of my knowledge. Provider Attestation: I, Rinku Ramsey MD, attest that all information documented by the above scribe is correct, and was supervised by me and under my direction. CC: Dr. Chadd Deluna documented in this encounterMercy Health St. [facility]02-14-2024 History of Present illness Narrative* Mar Mayo MD - 08/23/2023 10:00 AM EST Subjective Patient ID: Andrei Fish is a 72 y.o. female who presents for Ear Problem (Left TM perf). Pt had an apparent left tympanoplasty and OCR in December 2015. Pt states she was told there would need to be revision surgery. Saw another ENT in [place] who was to do the revision, but [...] Diagnosis Date Noted Chronic ITP (idiopathic thrombocytopenia) ([facility]) 05/26/2016 Disease of thyroid gland ([facility]) 06/28/2022 Essential hypertension ([facility]) 05/13/2021 Family history of breast cancer 04/13/2017 Lupus ([facility]) 03/03/2016 Nocturnal leg cramps 10/05/2017 Obstructive sleep apnea syndrome 05/13/2021 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[facility]) 06/28/2022 Tobacco dependence 06/28/2022 Dry mouth 01/05/2017 Compression syndrome, nerve 06/28/2022 Abnormal weight loss 03/03/2016 Age-related osteoporosis without current pathological fracture ([facility]) 06/06/2023 Ruptured ear drum, left 06/06/2023 Leg pain, bilateral 06/06/2023 Left wrist pain 06/06/2023 Obesity (BMI 30-39.9) 06/06/2023 Claudication of both lower extremities ([facility]) 06/08/2023 PAD (peripheral artery disease) ([facility]) 06/08/2023 Resolved Ambulatory Problems Diagnosis Date Noted No Resolved Ambulatory Problems Past Medical History: Diagnosis Date Hypertension ([facility]) Past Surgical History: Procedure Laterality Date APPENDECTOMY BI MAMMO GUIDED LOCALIZATION BREAST LEFT Left 03/28/2017 BI MAMMO GUIDED LOCALIZATION BREAST LEFT 03/28/2017 BREAST BIOPSY Left BREAST LUMPECTOMY Left 07/2015 BREAST SURGERY CHOLECYSTECTOMY COLONOSCOPY 2008 EYE SURGERY FRACTURE SURGERY Left leg HYSTERECTOMY Allergies Allergen Reactions Vancomycin Other States had burning sensation t/o entire body. (Infectious disease) States medication was given too fast. Fepedag-Pveusw-Ezccx Pertussis Rash Current Outpatient Medications on File Prior to Visit Medication Sig Dispense Refill alendronate (Fosamax) 70 MG tablet Take 1 tablet (70 mg) by mouth every 7 (seven) days. Take in themorning with a full glass of water, on [...] the morning and 1 tablet in the eveningand 1 tablet before bedtime. spironolactone (Aldactone) 25 [...] and now has a large perf and ABG.I will refer pt to Dr Graf at to be evaluated for revision surgery documented in this encounterMercy Hospital St. [id number] History of Present illness Narrative* Karissavishal Astudillo CCC-A - 08/16/2023 8:00 AM EST History: Pt was referred to ENT because of left TM perforation and left hearing loss. Onset of perforation was a few years ago Pt saw ENT in [place] that was going to repair the perforation [...] Left Ear: No seal documented in this encounterMercy Hospital St. [id number] Evaluation note* Encounter Date Diagnosis Assessment Notes Treatment Notes Treatment Clinical Notes Jun, HTN (hypertension) (ICD-10 - I10) [...] she develop symptoms. Jun, Chronic ITP (idiopathic thrombocytopenia) (ICD-10 - D69.3) Continue follow-up with hematology. Jun, ADALBERTO (obstructive sleep apnea) (ICD-10 - G47.33) She has a sleep apnea. I have advised her to follow with sleep specialist. Jun, Complex renal cyst (ICD-10 - N28.1) She has b/l renal cyst with one complicated cyst in left kidney. Her CT scan results reviewed from the [facility] which also showed bilateral renal cysts. [...] oral vitamin D 50,000 unit once weekly. [employer] Other 11-27-2023 History of Present illness Narrative* Ana Hernandez PA-C - 06/05/2023 8:47 AM EST Images from the original note were not included. NAME: Andrei Fish [facility] NO.: [id number] DATE OF SERVICE: June 05, 2023 (Mary) (Elements copied from Dr. Ramsey's note dated April 20, 2023, have been reviewed and updated where appropriate, and all reflect current assessment and medical decision making during today's encounter, June 05, 2023) Additional Clinicians involved in aPulalicia Ruben Fish's care: Dr. Shay, Dr. Deluna [...] having a mammogram and dexa scan at [facility] per her PCP. She states that [...] 08/29/2022 and then a follow-up with her textile screen maker on 09/07/2022. Overall, she is doing well [...] as they are slightlyincreased. Got back from [place] and saw her sisters and had a [...] had a consultation with nephrology, Dr. Gilson Ceja. Dr. Ceja increased her losartan to 50 mg daily. [...] why she was going to see a textile screen maker for her blood pressure. Patient also has [...] which included preparing to see the patient, rgsj-vj-[id number] patient care, completing clinical documentation, obtaining and/or reviewing separately obtained history, performing a medically appropriate examination, counseling and educating the pat ient/family/caregiver, ordering medications, tests, or procedures, independently interpreting results (not separately reported), communicating results to the patient/family/caregiver, and care coordination (not separately reported). Ana Hernandez PA-C CC: Dr. Chadd Deluna documented in this encounterMercy Health St. [facility]10-23-2023 Miscellaneous Notes* Telephone Encounter - Krsita Harden RP - 05/01/2023 2:44 PM EDT Please Fax RX to Manju Carlson for Herminio Nunn [facility] @ [phone] Emiliano Harden, KrissD, BCOP documented in this encounterMercy Health St. [facility]10-12-2023 Instructions* Patient Instructions* Rinku Ramsey MD - 04/20/2023 10:47 AM EDT Continue Tavalisse 100 mg twice daily. Follow up in 6 weeks with labs. documented in this encounterMercy Health St. [facility]10-12-2023 History of Present illness Narrative* Rinku Ramsey MD - 04/20/2023 10:30 AM EDT Images from the original note were not included. NAME: Fish Paulalicia CLINIC NO.: [id number] DATE OF SERVICE: April 20, 2023 ([facility]) Some elements in this clinic note that [...] 08/29/2022 and then a follow-up with her textile screen maker on 09/07/2022. Overall, she is doing well [...] as they are slightlyincreased. Got back from [place] and saw her sisters and had a [...] had a consultation with nephrology, Dr. Gilson Ceja. Dr. Ceja increased her losartan to 50 mg daily. [...] why she was going to see a textile screen maker for her blood pressure. Patient also has [...] which included preparing to see the patient, vyfy-ej-ojzx patient care, completing clinical documentation, obtaining and/or reviewing separately obtained history, performing a medically appropriate examination, counseling and educating the pat ient/family/caregiver, ordering medications, tests, or procedures, independently interpreting results (not separately reported), communicating results to the patient/family/caregiver, and care coordination (not separately reported). Rinku Ramsey MD, CPE Hematology and Oncology Services Provided at: [place], [place] CC: Dr. Chadd Deluna documented in this encounterMercy Health St. [facility]10-11-2023 Miscellaneous Notes* Telephone Encounter - Joanne Alvarez - 04/19/2023 4:02 PM EDT Patient has an appt on 04/20. Would you like labs? documented in this encounterMercy Health St. [facility]09-05-2023 Evaluation note* Encounter Date Diagnosis Assessment Notes Treatment Notes Treatment Clinical Notes Mar, Complex renal cyst (ICD-10 - N28.1) [employer] Other [id number] Instructions* Patient Instructions* Rinku Ramsey MD - 03/09/2023 2:54 PM EDT Continue Tavalisse 100 mg twice daily. Follow up in 6 weeks with labs. documented in this encounterMercy Health St. [facility]08-31-2023 History of Present illness Narrative* Rinku Ramsey MD - 03/09/2023 2:50 PM EDT Images from the original note were not included. NAME: Abe Andrei [facility] NO.: [id number] DATE OF SERVICE: March 09, 2023 [facility] Some elements in this clinic note that [...] 08/29/2022 and then a follow-up with her textile screen maker on 09/07/2022. Overall, she is doing well [...] as they are slightlyincreased. Got back from [place] and saw her sisters and had a [...] had a consultation with nephrology, Dr. Gilson Ceja. Dr. Ceja increased her losartan to 50 mg daily. [...] why she was going to see a textile screen maker for her blood pressure. Patient also has [...] is better. Updated Visit, April 29, 2021: Anderi Doesn't feel well today. She is 70 [...] which included preparing to see the patient, [id number]-pg-[id number] patient care, completing clinical documentation, performing a medically appropriate examination, counseling and educating the patient/family/caregiver, ordering medications, tests, or p rocedures, and independently interpreting results (not separately reported). Rinku Ramsey MD, CPE Hematology and Oncology Services Provided at: [place], [place] CC: Dr. Chadd Deluna documented in this encounterMercy Health St. [facility]07-20-2023 Instructions* Patient Instructions* Rinku Ramsey MD - 01/26/2023 3:14 PM EDT Continue Tavalisse 100 mg twice daily. Follow up in 6 weeks with labs. documented in this encounterMercy Health St. [facility]07-20-2023 History of Present illness Narrative* Rinku Ramsey MD - 01/26/2023 3:10 PM EDT NAME: Andrei Fish CLINIC NO.: [id number] DATE OF SERVICE: January 26, 2023 (Joon) [...] 08/29/2022 and then a follow-up with her textile screen maker on 09/07/2022. Overall, she is doing well [...] as they are slightlyincreased. Got back from [place] and saw her sisters and had a [...] had a consultation with nephrology, Dr. Gilson Ceja. Dr. Ceja increased her losartan to 50 mg daily. [...] why she was going to see a textile screen maker for her blood pressure. Patient also has [...] which included preparing to see the patient, wiht-fw-btda patient care, completing clinical documentation, performing a medically appropriate examination, counseling and educating the patient/family/caregiver, ordering medications, tests, or p rocedures, and independently interpreting results (not separately reported). Rinku Ramsey MD, CPE Hematology and Oncology Services Provided at: [place], [place] CC: Dr. Chadd Deluna documented in this encounterMercy Health [facility]. [facility]06-08-2023 Instructions* Patient Instructions* Rinku Ramsey MD - 12/15/2022 2:39 PM EDT Continue Tavalisse 100 mg twice daily. Follow up in 6 weeks with labs. documented in this encounterMercy Health [facility]. [facility]06-08-2023 History of Present illness Narrative* Rinku Ramsey MD - 12/15/2022 2:35 PM EDT Images from the original note were not included. NAME: Andrei Fish [facility] NO.: [id number] DATE OF SERVICE: December 15, 2022 (Joon) [...] 08/29/2022 and then a follow-up with her textile screen maker on 09/07/2022. Overall, she is doing well [...] as they are slightlyincreased. Got back from [place] and saw her sisters and had a [...] had a consultation with nephrology, Dr. Gilson Ceja. Dr. Ceja increased her losartan to 50 mg daily. [...] why she was going to see a textile screen maker for her blood pressure. Patient also has [...] which included preparing to see the patient, ksos-vg-ovvr patient care, completing clinical documentation, performing a medically appropriate examination, counseling and educating the patient/family/caregiver, ordering medications, tests, or p rocedures, and independently interpreting results (not separately reported). Rinku Ramsey MD, CPE Hematology and Oncology Services Provided at: [place], [place] CC: Dr. Chadd Deluna documented in this encounterMercy Health St. [facility]04-20-2023 Instructions* Patient Instructions* Rinku Ramsey MD - 10/27/2022 3:37 PM EDT Continue Tavalisse 100 mg twice daily. (Actually takes 2 pills at the same time) Follow up in 6 weeks with labs. documented in this encounterMercy Health [facility]. [facility]04-20-2023 History of Present illness Narrative* Rinku Ramsey MD - 10/27/2022 3:34 PM EDT Images from the original note were not included. NAME: Andrei Fish [facility] NO.: [id number] DATE OF SERVICE: October 27, 2022 ([facility]) Some elements in this clinic note that [...] 08/29/2022 and then a follow-up with her textile screen maker on 09/07/2022. Overall, she is doing well [...] as they are slightlyincreased. Got back from [place] and saw her sisters and had a [...] had a consultation with nephrology, Dr. Gilson Ceja. Dr. Ceja increased her losartan to 50 mg daily. [...] why she was going to see a textile screen maker for her blood pressure. Patient also has [...] which included preparing to see the patient, pxxw-ik-dvzu patient care, completing clinical documentation, performing a medically appropriate examination, counseling and educating the patient/family/caregiver, ordering medications, tests, or p rocedures, and independently interpreting results (not separately reported). Rinku Ramsey MD, CPE Hematology and Oncology Services Provided at: [place], [place] CC: Dr. Chadd Deluna documented in this encounterMercy Health St. [facility]03-17-2023 Miscellaneous Notes* Telephone Encounter - Joanne Alvarez - 09/23/2022 9:24 AM EDT Patient would like script for 90 days please. Joanne Alvarez documented in this encounterMercy Health St. [facility]03-10-2023 Miscellaneous Notes* Telephone Encounter - Rinku Ramsey MD - 09/16/2022 3:30 PM EST This really should go through her PCP documented in this encounterMercy [facility]. [facility]03-09-2023 Instructions* Patient Instructions* Rinku Ramsey MD - 09/15/2022 3:53 PM EST Continue Tavalisse 100 mg twice daily. (Actually takes 2 pills at the same time) Losartan was increased by nephrology. Taking Losartan 50 mg daily. Continue HCTZ. Follow up in 6 weeks with labs. documented in this encounterMercy Health [facility]. [facility]03-09-2023 History of Present illness Narrative* Rinku Ramsey MD - 09/15/2022 3:34 PM EST Images from the original note were not included. NAME: Andrei Fish [facility] NO.: [id number] DATE OF SERVICE: September 15, 2022 (Joon) [...] 08/29/2022 and then a follow-up with her textile screen maker on 09/07/2022. Overall, she is doing well [...] as they are slightlyincreased. Got back from [place] and saw her sisters and had a [...] had a consultation with nephrology, Dr. Gilson Ceja. Dr. Ceja increased her losartan to 50 mg daily. [...] why she was going to see a textile screen maker for her blood pressure. Patient also has [...] which included preparing to see the patient, tzoi-tu-fzwp patient care, completing clinical documentation, performing a medically appropriate examination, counseling and educating the patient/family/caregiver, ordering medications, tests, or p rocedures, and independently interpreting results (not separately reported). Rinku Ramsey MD, CPE Hematology and Oncology Services Provided at: [place], [place] CC: Dr. Chadd Deluna documented in this encounterMercy Health St. [facility]03-01-2023 Evaluation note* Encounter Date Diagnosis Assessment [...] (ICD-10 - D64.9) She follows with Hematology [facility] Other 01-27-2023 Miscellaneous Notes* Telephone Encounter - Jayden Connelly APRN.ROUTE SALES MANAGER - 08/05/2022 2:23 PM EST The following [...] appropriate Jayden Connelly APRN.STEPH documented in this encounterMercy Health St. [facility]01-26-2023 Miscellaneous Notes* Telephone Encounter - Karen Muñoz - 08/04/2022 2:40 PM EST Patient wanted to hold off on being referred to Dermatology at this time. She is going to check with her insurance company for in network providers and let our office know on where she would like to be referred to. Karen Muñoz documented in this encounterMercy Health St. [facility]01-26-2023 History of Present illness Narrative* Jayden Connelly APRN.STEPH - 08/04/2022 2:04 PM EST Images from the original note were not included. NAME: Andrei Fish [facility] NO.: [id number] DATE OF SERVICE: August 04, 2021 ([place]) [...] 08/29/2022 and then a follow-up with her textile screen maker on 09/07/2022. Overall, she is doing well [...] resolved. Updated Visit, May 12, 2022: Andrei iFsh returns for follow-up. She remains [...] as they are slightlyincreased. Got back from [place] and saw her sisters and had a [...] had a consultation with nephrology, Dr. Gilson Ceja. Dr. Ceja increased her losartan to 50 mg daily. [...] why she was going to see a textile screen maker for her blood pressure. Patient also has [...] APRN.CNP Hematology and Oncology Services Provided at: [place], [place] CC: Dr. Chadd Deluna I spent a total of 30 minutes on the date of the service which included preparing to see the patient, uwoa-wp-pfxd patient care, completing clinical documentation, obtaining and/or reviewing separately obtained history, performing a medically appropriate examination, counseling and educating the pat ient/family/caregiver, ordering medications, tests, or procedures, independently interpreting results (not separately reported), and communicating results to the patient/family/caregiver. documented in this encounterMercy Health [facility]01-16-2023 Miscellaneous Notes* Telephone Encounter - Jayden Connelly APRN.CNP - 07/25/2022 10:33 AM EST The following approved medication requests have been transmitted electronically. Requested Prescriptions Signed Prescriptions Disp Refills benzonatate (TESSALON PERLE) 100 mg capsule 100 capsule 0 Sig: TAKE 1 CAPSULE BY MOUTH EVERY 6 HOURS NEEDED FOR COUGH. Authorizing Provider: JAYDEN CONNELLY APRN.ROUTE SALES MANAGER documented in this encounterMercy Health St. [facility]01-04-2023 Miscellaneous Notes* Telephone Encounter - Jayden Connelly APRN.ROUTE SALES MANAGER - 07/13/2022 4:01 PM EST The following approved medication requests have been transmitted electronically. Requested Prescriptions Signed Prescriptions Disp Refills losartan (COZAAR) 25 mg tablet 60 tablet 1 Sig: TAKE 2 TABLETS BY MOUTH EVERY DAY Authorizing Provider: JAYDEN CONNELLY APRN.ROUTE SALES MANAGER documented in this encounterMer[facility]12[facility]2022 Instructions* Patient Instructions* Rinku Ramsey MD - 06/23/2022 2:44 PM EST Continue Tavalisse 100 mg twice daily. Losartan was increased by nephrology. Taking Losartan 50 mg daily. Continue HCTZ. Right read lesion - trial of ice. Follow up in 6 weeks with labs. See Jayden please. - consider biopsy of right read. documented in this encounterMer[facility]12-15-2022 History of Present illness Narrative* Rinku Ramsey MD - 06/23/2022 2:30 PM EST Images from the original note were not included. NAME: Andrei Fish NO.: [id number] DATE OF SERVICE: June 23, 2022 ([place]) [...] as they are slightlyincreased. Got back from [place] and saw her sisters and had a [...] had a consultation with nephrology, Dr. Gilson Ceja. Dr. Ceja increased her losartan to 50 mg daily. [...] why she was going to see a textile screen maker for her blood pressure. Patient also has [...] which included preparing to see the patient, [id number] patient care, completing clinical documentation, performing a medically appropriate examination, counseling and educating the patient/family/caregiver, ordering medications, tests, or p rocedures, and independently interpreting results (not separately reported). Rinku Ramsey MD, CPE Hematology and Oncology Services Provided at: [place], [place] CC: Dr. Chadd Deluna documented in this encounterMercy Health [facility]11-11-2022 Miscellaneous Notes* Telephone Encounter - Jayden Connelly APRN.CNP - 05/20/2022 3:34 PM EST The following approved medication requests have been transmitted electronically. Requested Prescriptions Signed Prescriptions Disp Refills losartan (COZAAR) 25 mg tablet 60 tablet 1 Sig: TAKE 2 TABLETS BY MOUTH EVERY DAY Authorizing Provider: JAYDEN CONNELLY APRN.CNP documented in this encounterMercy Health [facility]11-03-2022 History of Present illness Narrative* Jayden Connelly APRN.CNP - 05/12/2022 2:15 PM EDT NAME: FishAndrei CLINIC NO.: [id number] DATE OF SERVICE: May 12, 2022 ([place]) [...] as they are slightlyincreased. Got back from [place] and saw her sisters and had a [...] had a consultation with nephrology, Dr. Gilson Ceja. Dr. Ceja increased her losartan to 50 mg daily. [...] why she was going to see a textile screen maker for her blood pressure. Patient also has [...] No family history on file. Jayden Connelly APRN.ROUTE SALES MANAGER Hematology and Oncology Services Provided at: [place], [place] CC: Dr. Chadd Deluna I spent a total of 30 minutes on the date of the service which included preparing to see the patient, [id number] patient care, completing clinical documentation, obtaining and/or reviewing separately obtained history, performing a medically appropriate examination, counseling and educating the pat ient/family/caregiver, ordering medications, tests, or procedures, independently interpreting results (not separately reported), and communicating results to the patient/family/caregiver. documented in this encounterMercy Health [facility]09-22-2022 Instructions* Patient Instructions* Rinku Ramsey MD - 03/31/2022 2:50 PM EDT 1. Continue Tavalisse. 2. Losartan was increased by nephrology. Taking Losartan 50 mg daily. 3. Contnue HCTZ. 4. Follow up in 6 weeks with labs. documented in this encounterMercy Health St[facility]09-22-2022 History of Present illness Narrative* Rinku Ramsey MD - 03/31/2022 2:43 PM EDT Images from the original note were not included. NAME: Andrei Fish CLINIC NO.: [id number] DATE OF SERVICE: March 31, 2022 Some [...] as they are slightlyincreased. Got back from [place] and saw her sisters and had a nice trip with her of 54 yrs. Updated Visit, February 11, 2022: nAdrei Fish returns for scheduled follow-up. She remains [...] had a consultation with nephrology, Dr. Gilson Ceja. Dr. Ceja increased her losartan to 50 mg daily. [...] why she was going to see a textile screen maker for her blood pressure. Patient also has other mild medical issues and plans to get reestablished with a PCP. Overall, she is doing fairly well. Updated Visit, June 25, 2021: Andrie is 70 yo and returns in follow [...] which included preparing to see the patient, [id number] patient care, completing clinical documentation, performing a medically appropriate examination, ordering medications, tests, or procedures, and independently interpreting results (not separately reported). Rinku Ramsey MD, CPE Hematology and Oncology Services Provided at: [place], [place] CC: Chadd Deluna documented in this encounterMercy Health [facility]08-29-2022 Miscellaneous Notes* Telephone Encounter - Jayden Connelly APRN.ROUTE SALES MANAGER - 03/07/2022 12:22 PM EDT The following approved medication requests have been transmitted electronically. Requested Prescriptions Signed Prescriptions Disp Refills pilocarpine (SALAGEN) 5 mg tablet 90 tablet 0 Sig: TAKE 1 TABLET BY MOUTH THREE TIMES A DAY Authorizing Provider: JAYDEN CONNELLY APRN.CNP documented in this encounterMercy Health St. [facility]08-29-2022 Miscellaneous Notes* Telephone Encounter - Jayden Connelly APRN.CNP - 03/07/2022 11:21 AM EDT The following approved medication requests have been transmitted electronically. Requested Prescriptions Signed Prescriptions Disp Refills losartan (COZAAR) 25 mg tablet 60 tablet 1 Sig: TAKE 2 TABLETS BY MOUTH EVERY DAY Authorizing Provider: JAYDEN CONNELLY APRN.CNP documented in this encounterMercy Health St. [facility]08-05-2022 History of Present illness Narrative* Jayden Connelly APRN.CNP - 02/11/2022 1:21 PM EDT Images from the original note were not included. NAME: Andrei Fish [facility] NO.: [id number] DATE OF SERVICE: February 11, 2022 Some elements in this clinic note that are critical to medical decision making have been carefully reviewed and included from a prior clinic note dated: December 17, 2021. Additional Clinicians involved in Paulalicia Fish's care: [...] had a consultation with nephrology, Dr. Gilson Ceja. Dr. Ceja increased her losartan to 50 mg daily. [...] why she was going to see a textile screen maker for her blood pressure. Patient also has [...] file. Jayden Connelly APRN.CNP Services Provided at: [place], [place] CC: Chadd Deluna documented in this encounterMercy Health [facility]07-05-2022 Miscellaneous Notes* Telephone Encounter - Jayden Connelly APRN.CNP - 01/11/2022 4:13 PM EDT The following approved medication requests have been transmitted electronically. Signed Prescriptions Disp Refills losartan (COZAAR) 25 mg tablet 60 tablet 1 Sig: TAKE 2 TABLETS BY MOUTH EVERY DAY JOVON: No Authorizing Provider: JAYDEN CONNELLY APRN.CNP documented in this encounterMercy Health St. [facility]06-10-2022 History of Present illness Narrative* Jayden Connelly APRN.CNP - 12/17/2021 3:13 PM EDT Images from the original note were not included. NAME: Andrei Fish CLINIC NO.: [id number] DATE OF SERVICE: December 17, 2021 Some [...] had a consultation with nephrology, Dr. Gilson Ceja. Dr. Ceja increased her losartan to 50 mg daily. [...] why she was going to see a textile screen maker for her blood pressure. Patient also has [...] is better. Updated Visit, April 29, 2021: Anrdei Doesn't feel well today. She is 70 [...] No family history on file. Jayden Connelly APRN.ROUTE SALES MANAGER Services Provided at: [place], [place] CC: Chadd Deluna Almost had a fall MRI kidney- [facility] Nephrology documented in this encounterMercy Health St. [facility]05-04-2022 Evaluation note* Encounter Date Diagnosis Assessment [...] advised her to follow with sleep specialist. [facility] Other 04-21-2022 History of Present illness Narrative* Rinku Ramsey MD - 10/28/2021 11:41 AM EDT Images from the original note were not included. NAME: Andrei Fish CLINIC NO.: [id number] DATE OF SERVICE: October 28, 2021 Some [...] why she was going to see a textile screen maker for her blood pressure. Patient also has [...] which included preparing to see the patient, [id number] patient care, completing clinical documentation, performing a medically appropriate examination, ordering medications, tests, or procedures and care coordination (not separately reporte d). Rinku Ramsey MD, CPE Services Provided at: [place], [place] & [place], [place] CC: Chadd Deluna documented in this encounterMercy Health St. [facility]04-18-2022 History of Present illness Narrative* Mary [...] Care Gap or Scheduling/Wellness visits Payer: Payor: [employer] / Plan: [employer] A[employer] MEDICARE HMO [...] 25, 2021 8:13 AM documented in this encounterMercy Health St. [facility]04-12-2022 Miscellaneous Notes* Telephone Encounter - Jayden [...] Provider: JAYDEN CONNELLY APRN.CNP documented in this encounterMercy Health St. [facility]11-03-2021 Miscellaneous Notes* Telephone Encounter - Krista Harden RP - 05/12/2021 3:42 PM EDT Andrei has been approved for free Tavalisse 05/10/21-07/09/21. I left Andrei a message 05/12/21 @ 1546 informing her of this and that a Rn from [employer] will be reaching out to her to set up delivery of her Tavalisse if they have not already and to call with any further questions. Gerard Harden RPh documented [facility] [place] [facility]* Diagnosis Essential hypertension Unspecified essential hypertension Chronic ITP (idiopathic thrombocytopenia) (HCC) Immune thrombocytopenic purpura Obstructive sleep apnea syndrome Obstructive sleep apnea (adult) (pediatric) Hypertension, unspecified type documented in this encounter [facility] [place] [facility]* Diagnosis Chronic ITP (idiopathic thrombocytopenia) (HCC)- Primary Immune thrombocytopenic purpura Essential hypertension Unspecified essential hypertension Obstructive sleep apnea syndrome Obstructive sleep apnea (adult) (pediatric) Lung nodules Other nonspecific abnormal finding of lung field Systemic lupus erythematosus, unspecified SLE type, unspecified organ involvement status (HCC) documented [facility] this encounter [facility] [place] [facility]* Diagnosis Chronic ITP (idiopathic thrombocytopenia) (HCC)- Primary Immune thrombocytopenic purpura Hypertension, unspecified type Essential hypertension Unspecified essential hypertension Obstructive sleep apnea syndrome Obstructive sleep apnea (adult) (pediatric) Lung nodules Other nonspecific abnormal finding of lung field Systemic lupus erythematosus, unspecified SLE type, unspecified organ involvement status (HCC) documented in this encounter [facility] [place] [facility]* Diagnosis Hypertension, unspecified type documented in this encounter [facility] [place] [facility]* Diagnosis Essential hypertension Unspecified essential hypertension Chronic ITP (idiopathic thrombocytopenia) (HCC) Immune thrombocytopenic purpura Obstructive sleep apnea syndrome Obstructive sleep apnea (adult) (pediatric) Hypertension, unspecified type documented [facility] this encounter [facility] [place] [facility]* Diagnosis Hypertension, unspecified type documented in this encounter [facility] [place] [facility]* Diagnosis Chronic ITP (idiopathic thrombocytopenia) (HCC)- Primary Immune thrombocytopenic purpura Essential hypertension Unspecified essential hypertension Obstructive sleep apnea syndrome Obstructive sleep apnea (adult) (pediatric) Systemic lupus erythematosus, unspecified SLE type, unspecified organ involvement status (HCC) documented in this encounter [facility] [place] [facility]* Diagnosis Hypertension, unspecified type documented [facility] this encounter [facility] [place] [facility]* Diagnosis Chronic ITP (idiopathic thrombocytopenia) (HCC)- Primary Immune thrombocytopenic purpura Obstructive sleep apnea syndrome Obstructive sleep apnea (adult) (pediatric) documented in this encounter [facility] [place] [facility]* Diagnosis Chronic ITP (idiopathic thrombocytopenia) (HCC)- Primary Immune thrombocytopenic purpura Obstructive sleep apnea syndrome Obstructive sleep apnea (adult) (pediatric) Essential hypertension Unspecified essential hypertension documented [facility] this encounter [facility] [place] [facility]* Diagnosis Hypertension, unspecified type documented in this encounter [facility] [place] [facility]* Diagnosis Chronic ITP (idiopathic thrombocytopenia) (HCC)- Primary Immune thrombocytopenic purpura Hypertension, unspecified type Obstructive sleep apnea syndrome Obstructive sleep apnea (adult) (pediatric) Systemic lupus erythematosus, unspecified SLE type, unspecified organ involvement status (HCC) documented in this encounter [facility] note* Diagnosis Chronic ITP (idiopathic thrombocytopenia) (HCC)- Primary Immune thrombocytopenic purpura Obstructive sleep apnea syndrome Obstructive sleep apnea (adult) (pediatric) Hypertension, unspecified type Systemic lupus erythematosus, unspecified SLE type, unspecified organ involvement status (HCC) Malaise and fatigue Other malaise and fatigue Skin lesion of right lower extremity documented in this encounter [facility] [place] [facility]* Diagnosis Hypertension, unspecified type documented in this encounter [facility] noteNo assessment information [facility] Work Phone: Evaluation note* Diagnosis Chronic ITP (idiopathic thrombocytopenia) (HCC)- Primary Immune thrombocytopenic purpura Obstructive sleep apnea syndrome Obstructive sleep apnea (adult) (pediatric) documented in this encounter [facility] [place] [facility]* Diagnosis Hypertension, unspecified type documented in this encounter [facility] note* Diagnosis Chronic ITP (idiopathic thrombocytopenia) (HCC)- Primary Immune thrombocytopenic purpura documented in this encounter [facility] note* Diagnosis Chronic ITP (idiopathic thrombocytopenia) (HCC)- Primary Immune thrombocytopenic purpura Hypertension, unspecified type Obstructive sleep apnea syndrome Obstructive sleep apnea (adult) (pediatric) documented in this encounter [facility] note* Diagnosis Chronic ITP (idiopathic thrombocytopenia) (HCC)- Primary Immune thrombocytopenic purpura Essential hypertension Unspecified essential hypertension Obstructive sleep apnea syndrome Obstructive sleep apnea (adult) (pediatric) Systemic lupus erythematosus, unspecified SLE type, unspecified organ involvement status (HCC) documented in this encounter [facility] noteNo InformationNosaint [facility] Other Evaluation note* Diagnosis Chronic ITP (idiopathic thrombocytopenia) (HCC)- Primary Immune thrombocytopenic purpura documented in this encounter [facility] note* Diagnosis Chronic ITP (idiopathic thrombocytopenia) (HCC)- Primary Immune thrombocytopenic purpura Essential hypertension Unspecified essential hypertension documented in this encounter [facility] [place] [facility]* Diagnosis Chronic ITP (idiopathic thrombocytopenia) (HCC)- Primary Immune thrombocytopenic purpura Essential hypertension Unspecified essential hypertension Hypertension, unspecified type documented in this encounter 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* Diagnosis Chronic ITP (idiopathic thrombocytopenia) (HCC)- Primary Immune thrombocytopenic purpura Essential hypertension Unspecified essential hypertension Obstructive sleep apnea syndrome Obstructive sleep apnea (adult) (pediatric) Systemic lupus erythematosus, unspecified SLE type, unspecified organ involvement status ([facility]) Malaise and fatigue Other malaise and fatigue documented in this encounter [facility] [place] [facility]* Diagnosis Hypertension, unspecified type documented [facility] this encounter [facility] [place] [facility]* Diagnosis Cholesteatoma of left ear documented in this encounter [facility] Work Phone: Evaluation note* Diagnosis Cholesteatoma of left ear Perforation of left tympanic membrane Cholesteatoma of left ear documented in this encounter [facility] Work Phone: Evaluation note* Diagnosis Chronic ITP (idiopathic thrombocytopenia) (HCC)- Primary Immune thrombocytopenic purpura Stage 3b chronic kidney disease (HCC) Secondary hypertension Other secondary hypertension, unspecified Obstructive sleep apnea syndrome Obstructive sleep apnea (adult) (pediatric) documented in this encounter [facility] [place] [facility]* Diagnosis Preoperative examination- Primary Preoperative examination, unspecified Preoperative clearance- Primary Preoperative examination, unspecified documented in this encounter [facility] [place] [facility]* Diagnosis Cholesteatoma of left ear- Primary Preoperative clearance Unspecified pre-operative examination Cholesteatoma of left ear Post-operative pain Other acute postoperative pain HTN (hypertension) Unspecified essential hypertension documented in this encounter [facility] Work Phone: Evaluation note* Diagnosis Essential hypertension Unspecified essential hypertension Chronic ITP (idiopathic thrombocytopenia) (HCC) Immune thrombocytopenic purpura Obstructive sleep apnea syndrome Obstructive sleep apnea (adult) (pediatric) documented in this encounter [facility]* Diagnosis Chronic ITP (idiopathic thrombocytopenia) (HCC)- Primary Immune thrombocytopenic purpura Essential hypertension Unspecified essential hypertension Obstructive sleep apnea syndrome Obstructive sleep apnea (adult) (pediatric) Stage 3b chronic kidney disease (HCC) documented in this encounter [facility]* Diagnosis 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 Other vitamin B12 deficiency anemia Abnormal weight loss Loss of weight Lupus (HCC) Systemic lupus erythematosus Thrombocytopenia (HCC) Thrombocytopenia, unspecified Chronic ITP (idiopathic thrombocytopenia) (HCC) Immune thrombocytopenic purpura documented in this encounter 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* Diagnosis Left leg pain- Primary Pain in soft tissues of limb [facility] Diagnosis Coronary artery disease involving [place] coronary artery of [place] heart without angina pectoris (CMS/HCC) [facility]* Diagnosis 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 Other vitamin B12 deficiency anemia Thrombocytopenia (HCC) Thrombocytopenia, unspecified Lupus Systemic lupus erythematosus Abnormal weight loss Loss of weight Chronic ITP (idiopathic thrombocytopenia) (HCC) Immune thrombocytopenic purpura documented in this encounter 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* Diagnosis Ruptured ear drum, left- [...] peripheral vascular disease Coronary artery disease involving [place] coronary artery of [place] heart without angina pectoris (CMS/HCC)- Primary Calcification of aortic valve Essential hypertension (CMS/HCC) Unspecified essential hypertension Thyroid nodule (CMS/HCC) Nontoxic uninodular goiter Obstructive sleep apnea syndrome- Primary Obstructive sleep apnea (adult) (pediatric) PAH (pulmonary artery hypertension) (CMS/HCC) Other chronic pulmonary heart diseases Coronary artery disease involving [place] coronary artery of [place] heart without angina pectoris (CMS/HCC)- Primary Elevated glucose level Essential hypertension (CMS/HCC) Unspecified essential hypertension Encounter for screening mammogram for malignant neoplasm of breast Other chest pain Disease of thyroid gland (CMS/HCC) Unspecified disorder of thyroid Obesity (BMI 30-39.9) Posterior left knee pain Thyroid nodule (CMS/HCC)- Primary Nontoxic uninodular goiter 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 Coronary artery disease involving [place] coronary artery of [place] heart without angina pectoris (CMS/HCC) Pre-diabetes Other abnormal glucose Obesity (BMI 30-39.9) Diarrhea, unspecified type [facility]* Diagnosis Ruptured ear drum, left- [...] peripheral vascular disease Coronary artery disease involving [place] coronary artery of [place] heart without angina pectoris (CMS/HCC)- Primary Calcification of aortic valve Essential hypertension (CMS/HCC) Unspecified essential hypertension Thyroid nodule (CMS/HCC) Nontoxic uninodular goiter Obstructive sleep apnea syndrome- Primary Obstructive sleep apnea (adult) (pediatric) PAH (pulmonary artery hypertension) (CMS/HCC) Other chronic pulmonary heart diseases Coronary artery disease involving [place] coronary artery of [place] heart without angina pectoris (CMS/HCC)- Primary Elevated glucose level Essential hypertension (CMS/HCC) Unspecified essential hypertension Encounter for screening mammogram for malignant neoplasm of breast Other chest pain Disease of thyroid gland (CMS/HCC) Unspecified disorder of thyroid Obesity (BMI 30-39.9) Posterior left knee pain Thyroid nodule (CMS/HCC)- Primary Nontoxic uninodular goiter 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 Coronary artery disease involving [place] coronary artery of [place] heart without angina pectoris (CMS/HCC) Pre-diabetes Other abnormal glucose Obesity (BMI 30-39.9) Diarrhea, unspecified type Multiple lung nodules on CT- Primary documented in this encounter [facility] HealthcareEvaluation note* Diagnosis Ruptured ear [...] peripheral vascular disease Coronary artery disease involving [place] coronary artery of [place] heart without angina pectoris (CMS/HCC)- Primary Calcification of aortic valve Essential hypertension (CMS/HCC) Unspecified essential hypertension Thyroid nodule (CMS/HCC) Nontoxic uninodular goiter Obstructive sleep apnea syndrome- Primary Obstructive sleep apnea (adult) (pediatric) PAH (pulmonary artery hypertension) (CMS/HCC) Other chronic pulmonary heart diseases Coronary artery disease involving [place] coronary artery of [place] heart without angina pectoris (CMS/HCC)- Primary Elevated glucose level Essential hypertension (CMS/HCC) Unspecified essential hypertension Encounter for screening mammogram for malignant neoplasm of breast Other chest pain Disease of thyroid gland (CMS/HCC) Unspecified disorder of thyroid Obesity (BMI 30-39.9) Posterior left knee pain Thyroid nodule (CMS/HCC)- Primary Nontoxic uninodular goiter 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 Coronary artery disease involving [place] coronary artery of [place] heart without angina pectoris (CMS/HCC) Pre-diabetes Other abnormal glucose Obesity (BMI 30-39.9) Diarrhea, unspecified type Encounter for subsequent annual wellness visit (AWV) in Medicare patient- Primary Tobacco dependence Tobacco use disorder Pre-diabetes Other abnormal glucose Obesity (BMI 30-39.9) Age-related osteoporosis without current pathological fracture (CMS/HCC) Coronary artery disease involving [place] coronary artery of [place] heart without angina pectoris (CMS/HCC) Essential hypertension (CMS/HCC) Unspecified essential hypertension documented in this encounter [facility] HealthcareEvaluation note* Diagnosis Ruptured ear [...] peripheral vascular disease Coronary artery disease involving [place] coronary artery of [place] heart without angina pectoris (CMS/HCC)- Primary Calcification of aortic valve Essential hypertension (CMS/HCC) Unspecified essential hypertension Thyroid nodule (CMS/HCC) Nontoxic uninodular goiter Obstructive sleep apnea syndrome- Primary Obstructive sleep apnea (adult) (pediatric) PAH (pulmonary artery hypertension) (CMS/HCC) Other chronic pulmonary heart diseases Coronary artery disease involving [place] coronary artery of [place] heart without angina pectoris (CMS/HCC)- Primary Elevated glucose level Essential hypertension (CMS/HCC) Unspecified essential hypertension Encounter for screening mammogram for malignant neoplasm of breast Other chest pain Disease of thyroid gland (CMS/HCC) Unspecified disorder of thyroid Obesity (BMI 30-39.9) Posterior left knee pain Thyroid nodule (CMS/HCC)- Primary Nontoxic uninodular goiter 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 Coronary artery disease involving [place] coronary artery of [place] heart without angina pectoris (CMS/HCC) Pre-diabetes Other [...] pathological fracture (CMS/HCC) Coronary artery disease involving [place] coronary artery of [place] heart without angina pectoris (CMS/HCC) Essential hypertension [...] peripheral vascular disease Coronary artery disease involving [place] coronary artery of [place] heart without angina pectoris (CMS/HCC)- Primary Calcification of aortic valve Essential hypertension (CMS/HCC) Unspecified essential hypertension Thyroid nodule (CMS/HCC) Nontoxic uninodular goiter Obstructive sleep apnea syndrome- Primary Obstructive sleep apnea (adult) (pediatric) PAH (pulmonary artery hypertension) (CMS/HCC) Other chronic pulmonary heart diseases Coronary artery disease involving [place] coronary artery of [place] heart without angina pectoris (CMS/HCC)- Primary Elevated glucose level Essential hypertension (CMS/HCC) Unspecified essential hypertension Encounter for screening mammogram for malignant neoplasm of breast Other chest pain Disease of thyroid gland (CMS/HCC) Unspecified disorder of thyroid Obesity (BMI 30-39.9) Posterior left knee pain Thyroid nodule (CMS/HCC)- Primary Nontoxic uninodular goiter 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 Coronary artery disease involving [place] coronary artery of [place] heart without angina pectoris (CMS/HCC) Pre-diabetes Other abnormal glucose Obesity (BMI 30-39.9) Diarrhea, unspecified type Encounter for subsequent annual wellness visit (AWV) in Medicare patient- Primary Tobacco dependence Tobacco use disorder Pre-diabetes Other abnormal glucose Obesity (BMI 30-39.9) Age-related osteoporosis without current pathological fracture (CMS/HCC) Coronary artery disease involving [place] coronary artery of [place] heart without angina pectoris (CMS/HCC) Essential hypertension [...] peripheral vascular disease Coronary artery disease involving [place] coronary artery of [place] heart without angina pectoris (CMS/HCC)- Primary Calcification of aortic valve Essential hypertension (CMS/HCC) Unspecified essential hypertension Thyroid nodule (CMS/HCC) Nontoxic uninodular goiter Obstructive sleep apnea syndrome- Primary Obstructive sleep apnea (adult) (pediatric) PAH (pulmonary artery hypertension) (CMS/HCC) Other chronic pulmonary heart diseases Coronary artery disease involving [place] coronary artery of [place] heart without angina pectoris (CMS/HCC)- Primary Elevated glucose level Essential hypertension (CMS/HCC) Unspecified essential hypertension Encounter for screening mammogram for malignant neoplasm of breast Other chest pain Disease of thyroid gland (CMS/HCC) Unspecified disorder of thyroid Obesity (BMI 30-39.9) Posterior left knee pain Thyroid nodule (CMS/HCC)- Primary Nontoxic uninodular goiter 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 Coronary artery disease involving [place] coronary artery of [place] heart without angina pectoris (CMS/HCC) Pre-diabetes Other abnormal glucose Obesity (BMI 30-39.9) Diarrhea, unspecified type Encounter for subsequent annual wellness visit (AWV) in Medicare patient- Primary Tobacco dependence Tobacco use disorder Pre-diabetes Other abnormal glucose Obesity (BMI 30-39.9) Age-related osteoporosis without current pathological fracture (CMS/HCC) Coronary artery disease involving [place] coronary artery of [place] heart without angina pectoris (CMS/HCC) Essential hypertension (CMS/HCC) Unspecified essential hypertension Hyperthyroidism (CMS/HCC)- Primary Thyrotoxicosis without mention of goiter or other cause, without mention of thyrotoxic crisis or storm Thyroid nodule (CMS/HCC) Nontoxic uninodular goiter documented in this encounter [facility] HealthcareEvaluation note* Diagnosis Ruptured ear drum, left- [...] peripheral vascular disease Coronary artery disease involving [place] coronary artery of [place] heart without angina pectoris (CMS/HCC)- Primary Calcification of aortic valve Essential hypertension (CMS/HCC) Unspecified essential hypertension Thyroid nodule (CMS/HCC) Nontoxic uninodular goiter Obstructive sleep apnea syndrome- Primary Obstructive sleep apnea (adult) (pediatric) PAH (pulmonary artery hypertension) (CMS/HCC) Other chronic pulmonary heart diseases Coronary artery disease involving [place] coronary artery of [place] heart without angina pectoris (CMS/HCC)- Primary Elevated glucose level Essential hypertension (CMS/HCC) Unspecified essential hypertension Encounter for screening mammogram for malignant neoplasm of breast Other chest pain Disease of thyroid gland (CMS/HCC) Unspecified disorder of thyroid Obesity (BMI 30-39.9) Posterior left knee pain Thyroid nodule (CMS/HCC)- Primary Nontoxic uninodular goiter 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 Coronary artery disease involving [place] coronary artery of [place] heart without angina pectoris (CMS/HCC) Pre-diabetes Other abnormal glucose Obesity (BMI 30-39.9) Diarrhea, unspecified type Encounter for subsequent annual wellness visit (AWV) in Medicare patient- Primary Tobacco dependence Tobacco use disorder Pre-diabetes Other abnormal glucose Obesity (BMI 30-39.9) Age-related osteoporosis without current pathological fracture (CMS/HCC) Coronary artery disease involving [place] coronary artery of [place] heart without angina pectoris (CMS/HCC) Essential hypertension (CMS/HCC) Unspecified essential hypertension Multiple lung nodules on CT- Primary documented in this encounter [facility] HealthcareEvaluation note* Diagnosis 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 Other vitamin B12 deficiency anemia Chronic ITP (idiopathic thrombocytopenia) (HCC) Immune thrombocytopenic purpura Thrombocytopenia (HCC) Thrombocytopenia, unspecified Hyperglycemia Other abnormal glucose Obstructive sleep apnea syndrome Obstructive sleep apnea (adult) (pediatric) [facility] Chronic ITP (idiopathic thrombocytopenia) (HCC)- Primary Immune thrombocytopenic purpura Stage 3b chronic kidney disease (HCC) Secondary hypertension Other secondary hypertension, unspecified [facility] Diagnosis Obstructive sleep apnea syndrome- Primary Obstructive sleep apnea (adult) (pediatric) PAH (pulmonary artery hypertension) (CMS/HCC) Other chronic pulmonary heart diseases documented in this encounter [facility] HealthcareEvaluation note* Diagnosis Cholesteatoma of left ear- Primary Encounter for postoperative care documented in this encounter [facility] Work Phone: Evaluation note* Diagnosis Thyroid nodule (CMS/HCC)- Primary Nontoxic uninodular goiter Calcification of aortic valve Coronary artery disease involving [place] coronary artery of [place] heart without angina pectoris (CMS/HCC) documented in this encounter [facility] HealthcareEvaluation note* Diagnosis Coronary artery disease involving [place] coronary artery of [place] heart without angina pectoris (CMS/HCC)- Primary Calcification of aortic valve Essential hypertension (CMS/HCC) Unspecified essential hypertension Thyroid nodule (CMS/HCC) Nontoxic uninodular goiter documented in this encounter [facility] HealthcareEvaluation note* Diagnosis Coronary artery disease involving [place] coronary artery of [place] heart without angina pectoris (CMS/HCC) documented in this encounter [facility] HealthcareEvaluation note* Diagnosis Coronary artery disease involving [place] coronary artery of [place] heart without angina pectoris (CMS/HCC)- Primary Elevated glucose level Essential hypertension (CMS/HCC) Unspecified essential hypertension Encounter for screening mammogram for malignant neoplasm of breast Other chest pain Disease of thyroid gland (CMS/HCC) Unspecified disorder of thyroid Obesity (BMI 30-39.9) Posterior left knee pain documented in this encounter [facility] HealthcareEvaluation note* Diagnosis Disease of thyroid gland (CMS/HCC)- Primary Unspecified disorder of thyroid documented in this encounter [facility] HealthcareEvaluation note* Diagnosis 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 Other vitamin B12 deficiency anemia Thrombocytopenia (HCC) Thrombocytopenia, unspecified Abnormal weight loss Loss of weight Chronic ITP (idiopathic thrombocytopenia) (HCC) Immune thrombocytopenic purpura [facility] Diagnosis 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 Other vitamin B12 deficiency anemia Chronic ITP (idiopathic thrombocytopenia) (HCC) Immune thrombocytopenic purpura [facility]* Diagnosis Hypertension, unspecified type [facility] Diagnosis Ruptured ear drum, left- [...] peripheral vascular disease Coronary artery disease involving [place] coronary artery of [place] heart without angina pectoris (CMS/HCC)- Primary Calcification of aortic valve Essential hypertension (CMS/HCC) Unspecified essential hypertension Thyroid nodule (CMS/HCC) Nontoxic uninodular goiter Obstructive sleep apnea syndrome- Primary Obstructive sleep apnea (adult) (pediatric) PAH (pulmonary artery hypertension) (CMS/HCC) Other chronic pulmonary heart diseases Coronary artery disease involving [place] coronary artery of [place] heart without angina pectoris (CMS/HCC)- Primary Elevated glucose level Essential hypertension (CMS/HCC) Unspecified essential hypertension Encounter for screening mammogram for malignant neoplasm of breast Other chest pain Disease of thyroid gland (CMS/HCC) Unspecified disorder of thyroid Obesity (BMI 30-39.9) Posterior left knee pain Thyroid nodule (CMS/HCC)- Primary Nontoxic uninodular goiter 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 Coronary artery disease involving [place] coronary artery of [place] heart without angina pectoris (CMS/HCC) Pre-diabetes Other abnormal glucose Obesity (BMI 30-39.9) Diarrhea, unspecified type Encounter for subsequent annual wellness visit (AWV) in Medicare patient- Primary Tobacco dependence Tobacco use disorder Pre-diabetes Other abnormal glucose Obesity (BMI 30-39.9) Age-related osteoporosis without current pathological fracture (CMS/HCC) Coronary artery disease involving [place] coronary artery of [place] heart without angina pectoris (CMS/HCC) Essential hypertension (CMS/HCC) Unspecified essential hypertension Essential hypertension (CMS/HCC)- Primary Unspecified essential hypertension Systemic lupus erythematosus, unspecified (CMS/HCC) 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 Chronic kidney disease, stage 3a (HCC) (CMS/HCC) 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 Secondary pulmonary arterial hypertension (CMS/HCC) Coronary artery disease involving [place] coronary artery of [place] heart without angina pectoris (CMS/HCC) PAH (pulmonary artery hypertension) (CMS/HCC) Other chronic pulmonary heart diseases Obesity (BMI 30-39.9) Pre-diabetes Other abnormal glucose Tobacco dependence Tobacco use disorder Multiple lung nodules on CT Family history of cancer Family history of unspecified malignant neoplasm documented in this encounter [facility] note* Diagnosis Onset Date Resolution Status Admit Date Anemia of renal disease acute F ebruary 2024 12:51pm Chronic ITP (idiopathic thrombocytopenia) acute August 21, 2024 12:51pm CKD (chronic kidney disease) stage 3, GFR 30-59 ml/min acute Februa ry 2024 12:51pm Complex renal cyst acute 2024 12:51pm Hypertensive chronic kidney disease with stage 1 through stage 4 chronic ki acute August 12:51pm Hyperuricemia acute August 212024 12:51pm Lupus acute August 21, 2024 12:51pm ADALBERTO (obstructive sleep apnea) acute August 21, 2024 12:51pm Vitamin D deficiency acute 2024 12:51pm [facility] Work Phone: Evaluation note* Diagnosis 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 Other vitamin B12 deficiency anemia Thrombocytopenia (HCC) Thrombocytopenia, unspecified Abnormal weight loss Loss of weight Chronic ITP (idiopathic thrombocytopenia) (HCC) Immune thrombocytopenic purpura [facility] Diagnosis 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 Other vitamin B12 deficiency anemia Thrombocytopenia (HCC) Thrombocytopenia, unspecified Chronic ITP (idiopathic thrombocytopenia) (HCC) Immune thrombocytopenic purpura [facility] [place] [facility]* Diagnosis Ruptured ear drum, left- Primary [...] peripheral vascular disease Coronary artery disease involving [place] coronary artery of [place] heart without angina pectoris (CMS/HCC)- Primary Calcification of aortic valve Essential hypertension (CMS/HCC) Unspecified essential hypertension Thyroid nodule (CMS/HCC) Nontoxic uninodular goiter Obstructive sleep apnea syndrome- Primary Obstructive sleep apnea (adult) (pediatric) PAH (pulmonary artery hypertension) (CMS/HCC) Other chronic pulmonary heart diseases Coronary artery disease involving [place] coronary artery of [place] heart without angina pectoris (CMS/HCC)- Primary Elevated glucose level Essential hypertension (CMS/HCC) Unspecified essential hypertension Encounter for screening mammogram for malignant neoplasm of breast Other chest pain Disease of thyroid gland (CMS/HCC) Unspecified disorder of thyroid Obesity (BMI 30-39.9) Posterior left knee pain Thyroid nodule (CMS/HCC)- Primary Nontoxic uninodular goiter 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 Coronary artery disease involving [place] coronary artery of [place] heart without angina pectoris (CMS/HCC) Pre-diabetes Other abnormal glucose Obesity (BMI 30-39.9) Diarrhea, unspecified type Encounter for subsequent annual wellness visit (AWV) in [employer] patient- Primary Tobacco dependence Tobacco use disorder Pre-diabetes Other abnormal glucose Obesity (BMI 30-39.9) Age-related osteoporosis without current pathological fracture (CMS/HCC) Coronary artery disease involving [place] coronary artery of [place] heart without angina pectoris (CMS/HCC) Essential hypertension (CMS/HCC) Unspecified essential hypertension Essential hypertension (CMS/HCC)- Primary Unspecified essential hypertension Systemic lupus erythematosus, unspecified 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 Chronic kidney disease, stage 3a (HCC) (CMS/HCC) 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 Secondary pulmonary arterial hypertension (CMS/HCC) Coronary artery disease involving [place] coronary artery of [place] heart without angina pectoris (CMS/HCC) PAH (pulmonary artery hypertension) (CMS/HCC) Other chronic pulmonary heart diseases Obesity (BMI 30-39.9) Pre-diabetes Other abnormal glucose Tobacco dependence Tobacco use disorder Multiple lung nodules on CT Family history of cancer Family history of unspecified malignant neoplasm Coronary artery disease involving [place] coronary artery of [place] heart without angina pectoris (CMS/HCC) documented in this encounter [facility] HealthcareEvaluation note* Diagnosis 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 Other vitamin B12 deficiency anemia Thrombocytopenia Thrombocytopenia, unspecified [facility] Diagnosis 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 Other vitamin B12 deficiency anemia Thrombocytopenia Thrombocytopenia, unspecified Abnormal weight loss Loss of weight Chronic ITP (idiopathic thrombocytopenia) (HCC) Immune thrombocytopenic purpura [facility] Diagnosis 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 Other vitamin B12 deficiency anemia Thrombocytopenia Thrombocytopenia, unspecified Abnormal weight loss Loss of weight Chronic ITP (idiopathic thrombocytopenia) (HCC) Immune thrombocytopenic purpura documented [facility] Diagnosis Chronic ITP (idiopathic thrombocytopenia) (HCC)- Primary Immune thrombocytopenic purpura Stage 3b chronic kidney disease (HCC) 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) 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 deficiency Other vitamin B12 deficiency anemia Systemic lupus erythematosus, unspecified SLE type, unspecified organ involvement status (HCC) documented [facility] Diagnosis Cholesteatoma of left ear- Primary 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 Preoperative clearance Unspecified pre-operative examination Thrombocytopenia Unspecified thrombocytopenia 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- Primary documented in this encounter [facility] Work Phone: Evaluation note* Diagnosis 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)- Primary [facility] [place] [facility]* Diagnosis 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)- Primary 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 deficiency Other vitamin B12 deficiency anemia Abnormal weight loss Loss of weight Other systemic lupus erythematosus with other organ involvement (HCC) Thrombocytopenia Thrombocytopenia, unspecified Chronic ITP (idiopathic thrombocytopenia) (HCC) Immune thrombocytopenic purpura documented [facility] [place] [facility]* Diagnosis Ruptured ear drum, left- Primary [...] unspecified (HCC) Chronic kidney disease, stage 3b ([facility]-HCC) Claudication of both lower extremities Obesity (BMI 30-39.9) Tobacco dependence Tobacco use disorder PAD (peripheral artery disease) Unspecified peripheral vascular disease Coronary artery disease involving [place] coronary artery of [place] heart without angina pectoris- Primary Calcification of aortic valve Essential hypertension Unspecified essential hypertension Thyroid nodule Nontoxic uninodular goiter Obstructive sleep apnea syndrome- Primary Obstructive sleep apnea (adult) (pediatric) PAH (pulmonary artery hypertension) (HCC) Other chronic pulmonary heart diseases Coronary artery disease involving [place] coronary artery of [place] heart without angina pectoris- Primary Elevated glucose level Essential hypertension Unspecified essential hypertension Encounter for screening mammogram for malignant neoplasm of breast Other chest pain Disease of thyroid gland Unspecified disorder of thyroid Obesity (BMI 30-39.9) Posterior left knee pain Thyroid nodule- Primary Nontoxic uninodular goiter 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 Coronary artery disease involving [place] coronary artery of [place] heart without angina pectoris Pre-diabetes Other abnormal glucose Obesity (BMI 30-39.9) Diarrhea, unspecified type Encounter for subsequent annual wellness visit (AWV) in Medicare patient- Primary Tobacco dependence Tobacco use disorder Pre-diabetes Other abnormal glucose Obesity (BMI 30-39.9) Age-related osteoporosis without current pathological fracture Coronary artery disease involving [place] coronary artery of [place] heart without angina pectoris Essential hypertension Unspecified essential hypertension Essential hypertension- Primary Unspecified essential hypertension Systemic lupus erythematosus, unspecified (HCC) 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 Chronic kidney disease, stage 3a (CMS-HCC) 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 Secondary pulmonary arterial hypertension (HCC) Coronary artery disease involving [place] coronary artery of [place] heart without angina pectoris PAH (pulmonary artery hypertension) (HCC) Other chronic pulmonary heart diseases Obesity (BMI 30-39.9) Pre-diabetes Other abnormal glucose Tobacco dependence Tobacco use disorder Multiple lung nodules on CT Family history of cancer Family history of unspecified malignant neoplasm Diarrhea, unspecified type- Primary Chronic kidney disease, stage 3b (CMS-HCC) Coronary artery disease involving [place] coronary artery of [place] heart without angina pectoris Essential hypertension Unspecified essential hypertension Obesity (BMI 30-39.9) Pre-diabetes Other abnormal glucose Chronic ITP (idiopathic thrombocytopenia) (HCC) Tobacco dependence Tobacco use disorder Thyroid nodule Nontoxic uninodular goiter documented in [facility] encounter [facility] [...] peripheral vascular disease Coronary artery disease involving [place] coronary artery of [place] heart without angina pectoris- Primary Calcification of aortic valve Essential hypertension Unspecified essential hypertension Thyroid nodule Nontoxic uninodular goiter Obstructive sleep apnea syndrome- Primary Obstructive sleep apnea (adult) (pediatric) PAH (pulmonary artery hypertension) (HCC) Other chronic pulmonary heart diseases Coronary artery disease involving [place] coronary artery of [place] heart without angina pectoris- Primary Elevated glucose level Essential hypertension Unspecified essential hypertension Encounter for screening mammogram for malignant neoplasm of breast Other chest pain Disease of thyroid gland Unspecified disorder of thyroid Obesity (BMI 30-39.9) Posterior left knee pain Thyroid nodule- Primary Nontoxic uninodular goiter 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 Coronary artery disease involving [place] coronary artery of [place] heart without angina pectoris Pre-diabetes Other abnormal glucose Obesity (BMI 30-39.9) Diarrhea, unspecified type Encounter for subsequent annual wellness visit (AWV) in Medicare patient- Primary Tobacco dependence Tobacco use disorder Pre-diabetes Other abnormal glucose Obesity (BMI 30-39.9) Age-related osteoporosis without current pathological fracture Coronary artery disease involving [place] coronary artery of [place] heart without angina pectoris Essential hypertension Unspecified essential hypertension Essential hypertension- Primary Unspecified essential hypertension Systemic lupus erythematosus, unspecified (HCC) 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 Chronic kidney disease, stage 3a (CMS-HCC) 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 Secondary pulmonary arterial hypertension (HCC) Coronary artery disease involving [place] coronary artery of [place] heart without angina pectoris PAH (pulmonary artery hypertension) (HCC) Other chronic pulmonary heart diseases Obesity (BMI 30-39.9) Pre-diabetes Other abnormal glucose Tobacco dependence Tobacco use disorder Multiple lung nodules on CT Family history of cancer Family history of unspecified malignant neoplasm Diarrhea, unspecified type- Primary Chronic kidney disease, stage 3b (CMS-HCC) Coronary artery disease involving [place] coronary artery of [place] heart without angina pectoris Essential hypertension Unspecified essential hypertension Obesity (BMI 30-39.9) Pre-diabetes Other abnormal glucose Chronic ITP (idiopathic thrombocytopenia) (HCC) Tobacco dependence Tobacco use disorder Thyroid nodule Nontoxic uninodular goiter Coronary artery disease involving [place] coronary artery of [place] heart without angina pectoris documented in this encounter [facility]* Diagnosis Ruptured ear drum, left- [...] peripheral vascular disease Coronary artery disease involving [place] coronary artery of [place] heart without angina pectoris- Primary Calcification of aortic valve Essential hypertension Unspecified essential hypertension Thyroid nodule Nontoxic uninodular goiter Obstructive sleep apnea syndrome- Primary Obstructive sleep apnea (adult) (pediatric) PAH (pulmonary artery hypertension) (HCC) Other chronic pulmonary heart diseases Coronary artery disease involving [place] coronary artery of [place] heart without angina pectoris- Primary Elevated glucose level Essential hypertension Unspecified essential hypertension Encounter for screening mammogram for malignant neoplasm of breast Other chest pain Disease of thyroid gland Unspecified disorder of thyroid Obesity (BMI 30-39.9) Posterior left knee pain Thyroid nodule- Primary Nontoxic uninodular goiter 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 Coronary artery disease involving [place] coronary artery of [place] heart without angina pectoris Pre-diabetes Other abnormal glucose Obesity (BMI 30-39.9) Diarrhea, unspecified type Encounter for subsequent annual wellness visit (AWV) in Medicare patient- Primary Tobacco dependence Tobacco use disorder Pre-diabetes Other abnormal glucose Obesity (BMI 30-39.9) Age-related osteoporosis without current pathological fracture Coronary artery disease involving [place] coronary artery of [place] heart without angina pectoris Essential hypertension Unspecified essential hypertension Essential hypertension- Primary Unspecified essential hypertension Systemic lupus erythematosus, unspecified (HCC) 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 Chronic kidney disease, stage 3a (CMS-HCC) 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 Secondary pulmonary arterial hypertension (HCC) Coronary artery disease involving [place] coronary artery of [place] heart without angina pectoris PAH (pulmonary artery hypertension) (HCC) Other chronic pulmonary heart diseases Obesity (BMI 30-39.9) Pre-diabetes Other abnormal glucose Tobacco dependence Tobacco use disorder Multiple lung nodules on CT Family history of cancer Family history of unspecified malignant neoplasm Diarrhea, unspecified type- Primary Chronic kidney disease, stage 3b (CMS-HCC) Coronary artery disease involving [place] coronary artery of [place] heart without angina pectoris Essential hypertension Unspecified essential hypertension Obesity (BMI 30-39.9) Pre-diabetes Other abnormal glucose Chronic ITP (idiopathic thrombocytopenia) (HCC) Tobacco dependence Tobacco use disorder Thyroid nodule Nontoxic uninodular goiter Age-related osteoporosis without current pathological fracture- Primary [facility] Essential hypertension Unspecified essential hypertension Chronic ITP (idiopathic thrombocytopenia) (HCC) Immune thrombocytopenic purpura Obstructive sleep apnea syndrome Obstructive sleep apnea (adult) (pediatric) [facility] Diagnosis 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)- Primary [facility] Diagnosis Malaise and fatigue- Primary Other malaise and fatigue 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) 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 deficiency Other vitamin B12 deficiency anemia Thrombocytopenia Thrombocytopenia, unspecified Chronic ITP (idiopathic thrombocytopenia) (HCC) Immune thrombocytopenic purpura [facility] Diagnosis Ruptured ear drum, left- [...] peripheral vascular disease Coronary artery disease involving [place] coronary artery of [place] heart without angina pectoris- Primary Calcification of aortic valve Essential hypertension Unspecified essential hypertension Thyroid nodule Nontoxic uninodular goiter Obstructive sleep apnea syndrome- Primary Obstructive sleep apnea (adult) (pediatric) PAH (pulmonary artery hypertension) (HCC) Other chronic pulmonary heart diseases Coronary artery disease involving [place] coronary artery of [place] heart without angina pectoris- Primary Elevated glucose level Essential hypertension Unspecified essential hypertension Encounter for screening mammogram for malignant neoplasm of breast Other chest pain Disease of thyroid gland Unspecified disorder of thyroid Obesity (BMI 30-39.9) Posterior left knee pain Thyroid nodule- Primary Nontoxic uninodular goiter 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 Coronary artery disease involving [place] coronary artery of [place] heart without angina pectoris Pre-diabetes Other abnormal glucose Obesity (BMI 30-39.9) Diarrhea, unspecified type Encounter for subsequent annual wellness visit (AWV) in Medicare patient- Primary Tobacco dependence Tobacco use disorder Pre-diabetes Other abnormal glucose Obesity (BMI 30-39.9) Age-related osteoporosis without current pathological fracture Coronary artery disease involving [place] coronary artery of [place] heart without angina pectoris Essential hypertension Unspecified essential hypertension Essential hypertension- Primary Unspecified essential hypertension Systemic lupus erythematosus, unspecified (HCC) 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 Chronic kidney disease, stage 3a (CMS-HCC) 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 Secondary pulmonary arterial hypertension (HCC) Coronary artery disease involving [place] coronary artery of [place] heart without angina pectoris PAH (pulmonary artery hypertension) (HCC) Other chronic pulmonary heart diseases Obesity (BMI 30-39.9) Pre-diabetes Other abnormal glucose Tobacco dependence Tobacco use disorder Multiple lung nodules on CT Family history of cancer Family history of unspecified malignant neoplasm Diarrhea, unspecified type- Primary Chronic kidney disease, stage 3b (CMS-HCC) Coronary artery disease involving [place] coronary artery of [place] heart without angina pectoris Essential hypertension Unspecified essential hypertension Obesity (BMI 30-39.9) Pre-diabetes Other abnormal glucose Chronic ITP (idiopathic thrombocytopenia) (HCC) Tobacco dependence Tobacco use disorder Thyroid nodule Nontoxic uninodular goiter DARYL (acute kidney injury)- Primary Essential hypertension Unspecified essential hypertension Chronic kidney disease, stage 3b ([facility]) Diarrhea, unspecified type Tobacco dependence Tobacco use disorder documented in this encounter [facility]* Diagnosis Ruptured ear [...] both lower extremities Chronic ITP (idiopathic thrombocytopenia) ([facility]) Perforation of left tympanic membrane Hyperkalemia with normal acid-base balance Lumbar back pain- Primary Lumbago Systemic lupus erythematosus, unspecified (HCC) Chronic kidney disease, stage 3b ([facility]) Claudication of both lower extremities Obesity (BMI 30-39.9) Tobacco dependence Tobacco use disorder PAD (peripheral artery disease) Unspecified peripheral vascular disease Coronary artery disease involving [place] coronary artery of [place] heart without angina pectoris- Primary Calcification of aortic valve Essential hypertension Unspecified essential hypertension Thyroid nodule Nontoxic uninodular goiter Obstructive sleep apnea syndrome- Primary Obstructive sleep apnea (adult) (pediatric) PAH (pulmonary artery hypertension) (HCC) Other chronic pulmonary heart diseases Coronary artery disease involving [place] coronary artery of [place] heart without angina pectoris- Primary Elevated glucose level Essential hypertension Unspecified essential hypertension Encounter for screening mammogram for malignant neoplasm of breast Other chest pain Disease of thyroid gland Unspecified disorder of thyroid Obesity (BMI 30-39.9) Posterior left knee pain Thyroid nodule- Primary Nontoxic uninodular goiter 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 Coronary artery disease involving [place] coronary artery of [place] heart without angina pectoris Pre-diabetes Other abnormal glucose Obesity (BMI 30-39.9) Diarrhea, unspecified type Encounter for subsequent annual wellness visit (AWV) in Medicare patient- Primary Tobacco dependence Tobacco use disorder Pre-diabetes Other abnormal glucose Obesity (BMI 30-39.9) Age-related osteoporosis without current pathological fracture Coronary artery disease involving [place] coronary artery of [place] heart without angina pectoris Essential hypertension Unspecified essential hypertension Essential hypertension- Primary Unspecified essential hypertension Systemic lupus erythematosus, unspecified (HCC) 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 Chronic kidney disease, stage 3a (CMS-HCC) 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 Secondary pulmonary arterial hypertension (HCC) Coronary artery disease involving [place] coronary artery of [place] heart without angina pectoris PAH (pulmonary artery hypertension) (HCC) Other chronic pulmonary heart diseases Obesity (BMI 30-39.9) Pre-diabetes Other abnormal glucose Tobacco dependence Tobacco use disorder Multiple lung nodules on CT Family history of cancer Family history of unspecified malignant neoplasm Diarrhea, unspecified type- Primary Chronic kidney disease, stage 3b (CMS-HCC) Coronary artery disease involving [place] coronary artery of [place] heart without angina pectoris Essential hypertension Unspecified essential hypertension Obesity (BMI 30-39.9) Pre-diabetes Other abnormal glucose Chronic ITP (idiopathic thrombocytopenia) (HCC) Tobacco dependence Tobacco use disorder Thyroid nodule Nontoxic uninodular goiter DARYL (acute kidney injury)- Primary Essential hypertension Unspecified essential hypertension Chronic kidney disease, stage 3b (CMS-HCC) Diarrhea, unspecified type Tobacco dependence Tobacco use disorder Weakness of both legs- Primary Muscle weakness (generalized) Chronic kidney disease, stage 3b (CMS-HCC) Obesity (BMI 30-39.9) Tobacco dependence Tobacco use disorder Lumbar spondylosis Lumbosacral spondylosis without myelopathy [facility] Diagnosis 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 Other vitamin B12 deficiency anemia Abnormal weight loss Loss of weight Other systemic lupus erythematosus with other organ involvement (HCC) Thrombocytopenia Thrombocytopenia, unspecified Chronic ITP (idiopathic thrombocytopenia) (HCC) Immune thrombocytopenic purpura 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) [facility] Diagnosis Ruptured ear drum, left- [...] peripheral vascular disease Coronary artery disease involving [place] coronary artery of [place] heart without angina pectoris- Primary Calcification of aortic valve Essential hypertension Unspecified essential hypertension Thyroid nodule Nontoxic uninodular goiter Obstructive sleep apnea syndrome- Primary Obstructive sleep apnea (adult) (pediatric) PAH (pulmonary artery hypertension) (HCC) Other chronic pulmonary heart diseases Coronary artery disease involving [place] coronary artery of [place] heart without angina pectoris- Primary Elevated glucose level Essential hypertension Unspecified essential hypertension Encounter for screening mammogram for malignant neoplasm of breast Other chest pain Disease of thyroid gland Unspecified disorder of thyroid Obesity (BMI 30-39.9) Posterior left knee pain Thyroid nodule- Primary Nontoxic uninodular goiter 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 Coronary artery disease involving [place] coronary artery of [place] heart without angina pectoris Pre-diabetes Other abnormal glucose Obesity (BMI 30-39.9) Diarrhea, unspecified type Encounter for subsequent annual wellness visit (AWV) in Medicare patient- Primary Tobacco dependence Tobacco use disorder Pre-diabetes Other abnormal glucose Obesity (BMI 30-39.9) Age-related osteoporosis without current pathological fracture Coronary artery disease involving [place] coronary artery of [place] heart without angina pectoris Essential hypertension Unspecified essential hypertension Essential hypertension- Primary Unspecified essential hypertension Systemic lupus erythematosus, unspecified (HCC) 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 Chronic kidney disease, stage 3a (CMS-HCC) 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 Secondary pulmonary arterial hypertension (HCC) Coronary artery disease involving [place] coronary artery of [place] heart without angina pectoris PAH (pulmonary artery hypertension) (HCC) Other chronic pulmonary heart diseases Obesity (BMI 30-39.9) Pre-diabetes Other abnormal glucose Tobacco dependence Tobacco use disorder Multiple lung nodules on CT Family history of cancer Family history of unspecified malignant neoplasm Diarrhea, unspecified type- Primary Chronic kidney disease, stage 3b (CMS-HCC) Coronary artery disease involving [place] coronary artery of [place] heart without angina pectoris Essential hypertension Unspecified essential hypertension Obesity (BMI 30-39.9) Pre-diabetes Other abnormal glucose Chronic ITP (idiopathic thrombocytopenia) (HCC) Tobacco dependence Tobacco use disorder Thyroid nodule Nontoxic uninodular goiter DARYL (acute kidney injury)- Primary Essential hypertension Unspecified essential hypertension Chronic kidney disease, stage 3b ([facility]) Diarrhea, unspecified type Tobacco dependence Tobacco use disorder Weakness of both legs- Primary Muscle weakness (generalized) Chronic kidney disease, stage 3b ([facility]) Obesity (BMI 30-39.9) Tobacco dependence Tobacco use disorder Lumbar spondylosis Lumbosacral spondylosis without myelopathy Abdominal aortic aneurysm (AAA) without rupture, unspecified part- Primary [facility] Diagnosis Onset Date Resolution Status Admit Date Anemia of renal disease acute [id number] 1:48pm Chronic ITP (idiopathic thrombocytopenia) acute January 27 1:48pm CKD (chronic kidney disease) stage 3, GFR 30-59 ml/min acute January [id number] 1:48pm Complex renal cyst acute January 082024 1:48pm Hypertensive chronic kidney disease with stage 1 through stage 4 chronic ki acute January 27 1:48pm Hyperuricemia acute January 27, 2025 1:48pm Lupus acute January 27 1:48pm ADALBERTO (obstructive sleep apnea) acute January 27, 2025 1:48pm Vitamin D deficiency acute January 27, 2025 1:48pm [facility] Work Phone: Evaluation note* Diagnosis 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)- Primary [facility] [place] [facility] Diagnosis 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)- Primary 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 documented in this encounter [facility] Work Phone: Evaluation note* Diagnosis 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 Other vitamin B12 deficiency anemia 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) Thrombocytopenia Thrombocytopenia, unspecified Chronic ITP (idiopathic thrombocytopenia) (HCC) Immune thrombocytopenic purpura Essential hypertension Unspecified essential hypertension Obstructive sleep apnea syndrome Obstructive sleep apnea (adult) (pediatric) Abdominal aortic aneurysm (AAA) without rupture, unspecified part [facility] Diagnosis 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 Other vitamin B12 deficiency anemia Abnormal weight loss Loss of weight Other systemic lupus erythematosus with other organ involvement (HCC) Thrombocytopenia Thrombocytopenia, unspecified Chronic ITP (idiopathic thrombocytopenia) (HCC) Immune thrombocytopenic purpura 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) documented in this encounter [facility] general Narrative - Reported* Type Description Date Medical History PULMONARY NODULES Medical History LUPUS Medical History THROMBOCYTOPENIA Medical History HYPERTESNION Surgical History APPENDECTOMY Surgical History BACK SURGERY Surgical History CYST REMOVAL FROM LEFT BREAST Surgical History GALL BLADDER REMOVED Surgical History PARTIAL HYSTERECTOMY Surgical History OVARY REMOVAL Surgical History LEFT LEG FRACTURE WITH PIN AND PLATE PLACEMENT Hospitalization History SEE ABOVE [employer] Other History general Narrative - Reported* Type [...] AND PLATE PLACEMENT Hospitalization History SEE ABOVE [employer] Other Reason for referral (narrative)* Consultation (Routine) - Pending Review Specialty Diagnoses / Procedures Referred By Sobia guallpa Referred To Contact Orthopaedic Surgery Diagnoses Posterior left knee pain Stephanie Dumont NP [address] [place] [address] Jr. Herson Avalos DO [address] [place] [address] Referral ID Status Reason Start Date Expiration Date Visits Requested Visits Authorized [id number] Pending Review Specialty Services Required 04/04/2024 10/01/2024 1 1 Scheduling Instructions Pt requests dr avalos * Imaging (Routine) - Pending Review Specialty Diagnoses / Procedures Referred By Sobia guallpa Referred To Contact Diagnoses Essential hypertension (CMS/HCC) Coronary artery disease involving [place] coronary artery of [place] heart without angina pectoris (CMS/HCC) Other chest pain Procedures STRESS NUCLEAR MEDICINE Stephanie Kohli, JORDI [address] [place] [address] [facility] [address] [place] [address] Referral ID Status Reason Start Date Expiration Date V isits Requested Visits Authorized [id number] Pending Review 04/04/2024 10/01/[address] [facility]ative[facility]No reason for referral information [facility]University [facility] Work Phone: Reason for visit Narrative* [place] Prior Authorization (Routine) - Authorized Specialty Diagnoses / Procedures Referred By Contac t Referred To Contact Diagnoses 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) Rinku Ramsey MD [address] [place] [address] [place] [address] Phone: tel: fax: Rinku Ramsey MD [address] [place] [address] [place] [address] Phone: tel: fax: Referral ID Status Reason Start Date Expiration Date V isits Requested Visits Authorized [id number] Authorized 12/04/2024 12/04/2025 [address] [facility] 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 [H72.02] Procedures WA TYMPANOPLASTY W/O MASTOIDEC 1ST/REVJ PROSTH TORP WA GRAFT EAR CRTLG AUTOGENOUS NOSE/EAR Left Side Transcanal Tympanoplasty; Ossiculoplasty; Cartilage Graft Left Side Transcanal Tympanoplasty; Ossiculoplasty; [place] [id number] [address] [place], [place] [address] Phone: tel: fax: [facility] [place] [address] [place] [address] fax: Referral ID Status Reason Start Date Expiration Date Visits Re quested Visits Authorized [id number] 1 1 [facility] Work Phone: Summary Purpose Family History No Family History Records Found Relationship Condition Age at Onset Recorded Date/T [...] of breast Unknown Hypertension Unknown Advance Directives No Advanced Directives Records Found Advance Directive Response Recorded Date/ Time Advance Directives No July 22, 2022 10:59am Advance Directive Response Recorded Date/ Time Advance Directives No June 11:57am Advance Directive Response Recorded Date/ Time Advance Directives No June 10:57am Date Activated Date Inactivated Comments 02/05/2025 10:10 AM Question Answer Comments Plan of Care: Code Status Discussion Completed Decision Maker: Patient Reason for Referral Specialty Diagnoses / Procedures Referred By Contac t Referred To Contact Radiology Diagnoses Calcification of aortic valve Coronary artery disease involving [place] coronary artery of [place] heart without angina pectoris ([facility]) Procedures Echocardiogram 2D complete Stephanie Dumont NP [address] [place] [address] [facility] [address] [place] [address] Referral ID Status Reason Start Date Expiration Date Visits Requested Visits Authorized [id number] Incomplete Perform Procedure 02/26/2024 08/24/2024 1 1 Specialty Diagnoses / Procedures Referred By Contac t Referred To Contact Diagnoses Left leg pain Procedures NM bone 3 phase Blaise Alex, LISA [address] [place] [address] [facility] [address] [address] Referral ID Status Reason Start Date Expiration Date V isits Requested Visits Authorized [id number] Pending Review 04/09/2024 10/06/2024 4 4 Specialty Diagnoses / Procedures Referred By Sobia guallpa Referred To Contact Radiology Diagnoses Cholesteatoma of left ear Procedures CT internal auditory canals posterior [place] [address] [place] [address] Referral ID Status Reason Start Date Expiration Date Visits Requested Visits Authorized [id number] Pending Review Perform Procedure 11/14/2023 11/13/2024 1 1 Specialty Diagnoses / Procedures Referred By Sobia guallpa Referred To Contact Dermatology Diagnoses Skin lesion of right lower extremity Procedures CONSULT TO DERMATOLOGY Jayden Connelly, MIRIAM.[employer] [address] [place] [address] Referral ID Status Reason Start Date Expiration Date Visits Requested Visits Authorized [id number] Ref Not Required PCP Requested Referral 08/04/2022 [...] Vitamin D deficiency August 21, 2024 12:51pm Chief Complaint Admit Date hospital f/u January 27, 2025 1:48 pm Reason for Visit Admit Date Anemia of renal disease January 27, 2025 1:48pm Chronic ITP (idiopathic thrombocytopenia ) January 27, 2025 1:48pm CKD (chronic kidney disease) stage 3, GF R 30-59 ml/min January 27, 2025 1:48pm Complex renal cyst January 27, 2025 1:48 pm Hypertensive chronic kidney disease with stage 1 through stage 4 chronic ki January 27, 2025 1:48pm Hyperuricemia January 27, 2025 1:48 pm Lupus January 27, 2025 1:48 pm ADALBERTO (obstructive sleep apnea) January 27, 2025 1:48pm Vitamin D deficiency January 27, 2025 1:4 8pm Chief Complaint Admit Date hospital f/u January 27, 2025 1:48 pm ESTABLISHED PATIENT March 13, 2025 9:58am Reason for Visit Admit Date Anemia of renal disease January 27, 2025 1:48pm Chronic ITP (idiopathic thrombocytopenia ) January 27, 2025 1:48pm CKD (chronic kidney disease) stage 3, GF R 30-59 ml/min January 27, 2025 1:48pm Complex renal cyst January 27, 2025 1:48 pm Hypertensive chronic kidney disease with stage 1 through stage 4 chronic ki January 27, 2025 1:48pm Hyperuricemia January 27, 2025 1:48 pm Lupus January 27, 2025 1:48 pm ADALBERTO (obstructive sleep apnea) January 27, 2025 1:48pm Vitamin D deficiency January 27, 2025 1:4 8pm AAA (abdominal aortic aneurysm) without rupture March 13, 2025 9:58am Chronic ITP (idiopathic thrombocytopenia ) March 13, 2025 9:58am CKD (chronic kidney disease) stage 3, GF R 30-59 ml/min March 13, 2025 9:58am Essential hypertension March 13 9:58am Obesity due to excess calories March 13, 2025 9:58am Additional Source Comments INFORMATION SOURCE (unrecogn ized section and content) DATE CREATED AUTHOR 01/02/2018 [facility] DATE CREATED AUTHOR AUTHOR'S ORGANIZ ATION 05/02/2024 [facility] DATE CREATED AUTHOR AUTHOR'S ORGANIZ ATION 07/21/2024 [facility] DATE CREATED AUTHOR AUTHOR'S ORGANIZ ATION 11/28/2024 [facility] DATE CREATED AUTHOR AUTHOR'S ORGANIZ ATION 12/03/2024 [facility] DATE CREATED AUTHOR AUTHOR'S ORGANIZ ATION 01/19/2025 [facility] DATE CREATED AUTHOR AUTHOR'S ORGANIZ ATION 01/23/2025 [facility] DATE CREATED AUTHOR AUTHOR'S ORGANIZ ATION 02/10/2025 [facility] DATE CREATED AUTHOR AUTHOR'S ORGANIZ ATION 03/16/2025 [facility] Source Comments (unrecognize d section and content) In the event this informatio n is protected by the Federal Confidentiality of Alcohol and Drug Abuse Patient Records regulations: The Federal rules restrict any use of the information to criminally investigate or prosecute any alcohol or drug abuse patient.[facility] the event this information is protected by the Federal Confidentiality of Alcohol and Drug Abuse Patient Records regulations: The Federal rules restrict any use of the information to criminally investigate or prosecute any alcohol or drug abuse patient.[facility]In the event this information is protected by the Federal Confidentiality of Alcohol and Drug Abuse Patient Records regulations: The Federal rules restrict any use of the information to criminally investigate or prosecute any alcohol or drug abuse patient.[facility] HospitalIn the event this information is protected by the Federal Confidentiality of Alcohol and Drug Abuse Patient Records regulations: The Federal rules restrict any use of the information to criminally investigate or prosecute any alcohol or drug abuse patient.[facility] HospitalIn the event this information is protected by the Federal Confidentiality of Alcohol and Drug Abuse Patient Records regulations: The Federal rules restrict any use of the information to criminally investigate or prosecute any alcohol or drug abuse patient.[facility] HospitalIn the event this information is protected by the Federal Confidentiality of Alcohol and Drug Abuse Patient Records regulations: The Federal rules restrict any use of the information to criminally investigate or prosecute any alcohol or drug abuse patient.[facility] HospitalIn the event this information is protected by the Federal Confidentiality of Alcohol and Drug Abuse Patient Records regulations: The Federal rules restrict any use of the information to criminally investigate or prosecute any alcohol or drug abuse patient.[facility] HospitalIn the event this information is protected by the Federal Confidentiality of Alcohol and Drug Abuse Patient Records regulations: The Federal rules restrict any use of the information to criminally investigate or prosecute any alcohol or drug abuse patient.[facility] HospitalIn the event this information is protected by the Federal Confidentiality of Alcohol and Drug Abuse Patient Records regulations: The Federal rules restrict any use of the information to criminally investigate or prosecute any alcohol or drug abuse patient.[facility] HospitalIn the event this information is protected by the Federal Confidentiality of Alcohol and Drug Abuse Patient Records regulations: The Federal rules restrict any use of the information to criminally investigate or prosecute any alcohol or drug abuse patient.[facility] HospitalIn the event this information is protected by the Federal Confidentiality of Alcohol and Drug Abuse Patient Records regulations: The Federal rules restrict any use of the information to criminally investigate or prosecute any alcohol or drug abuse patient.[facility] HospitalIn the event this information is protected by the Federal Confidentiality of Alcohol and Drug Abuse Patient Records regulations: The Federal rules restrict any use of the information to criminally investigate or prosecute any alcohol or drug abuse patient.[facility] HospitalIn the event this information is protected by the Federal Confidentiality of Alcohol and Drug Abuse Patient Records regulations: The Federal rules restrict any use of the information to criminally investigate or prosecute any alcohol or drug abuse patient.[facility] HospitalIn the event this information is protected by the Federal Confidentiality of Alcohol and Drug Abuse Patient Records regulations: The Federal rules restrict any use of the information to criminally investigate or prosecute any alcohol or drug abuse patient.[facility] HospitalIn the event this information is protected by the Federal Confidentiality of Alcohol and Drug Abuse Patient Records regulations: The Federal rules restrict any use of the information to criminally investigate or prosecute any alcohol or drug abuse patient.[facility] HospitalIn the event this information is protected by the Federal Confidentiality of Alcohol and Drug Abuse Patient Records regulations: The Federal rules restrict any use of the information to criminally investigate or prosecute any alcohol or drug abuse patient.[facility] HospitalIn the event this information is protected by the Federal Confidentiality of Alcohol and Drug Abuse Patient Records regulations: The Federal rules restrict any use of the information to criminally investigate or prosecute any alcohol or drug abuse patient.[facility] HospitalIn the event this information is protected by the Federal Confidentiality of Alcohol and Drug Abuse Patient Records regulations: The Federal rules restrict any use of the information to criminally investigate or prosecute any alcohol or drug abuse patient.[facility] HospitalIn the event this information is protected by the Federal Confidentiality of Alcohol and Drug Abuse Patient Records regulations: The Federal rules restrict any use of the information to criminally investigate or prosecute any alcohol or drug abuse patient.[facility] HospitalIn the event this information is protected by the Federal Confidentiality of Alcohol and Drug Abuse Patient Records regulations: The Federal rules restrict any use of the information to criminally investigate or prosecute any alcohol or drug abuse patient.[facility] HospitalIn the event this information is protected by the Federal Confidentiality of Alcohol and Drug Abuse Patient Records regulations: The Federal rules restrict any use of the information to criminally investigate or prosecute any alcohol or drug abuse patient.[facility] HospitalIn the event this information is protected by the Federal Confidentiality of Alcohol and Drug Abuse Patient Records regulations: The Federal rules restrict any use of the information to criminally investigate or prosecute any alcohol or drug abuse patient.[facility] HospitalIn the event this information is protected by the Federal Confidentiality of Alcohol and Drug Abuse Patient Records regulations: The Federal rules restrict any use of the information to criminally investigate or prosecute any alcohol or drug abuse patient.[facility] HospitalIn the event this information is protected by the Federal Confidentiality of Alcohol and Drug Abuse Patient Records regulations: The Federal rules restrict any use of the information to criminally investigate or prosecute any alcohol or drug abuse patient.[facility] HospitalIn the event this information is protected by the Federal Confidentiality of Alcohol and Drug Abuse Patient Records regulations: The Federal rules restrict any use of the information to criminally investigate or prosecute any alcohol or drug abuse patient.[facility] HospitalIn the event this information is protected by the Federal Confidentiality of Alcohol and Drug Abuse Patient Records regulations: The Federal rules restrict any use of the information to criminally investigate or prosecute any alcohol or drug abuse patient.[facility] HospitalIn the event this information is protected by the Federal Confidentiality of Alcohol and Drug Abuse Patient Records regulations: The Federal rules restrict any use of the information to criminally investigate or prosecute any alcohol or drug abuse patient.[facility] HospitalIn the event this information is protected by the Federal Confidentiality of Alcohol and Drug Abuse Patient Records regulations: The Federal rules restrict any use of the information to criminally investigate or prosecute any alcohol or drug abuse patient.[facility] HospitalIn the event this information is protected by the Federal Confidentiality of Alcohol and Drug Abuse Patient Records regulations: The Federal rules restrict any use of the information to criminally investigate or prosecute any alcohol or drug abuse patient.[facility] HospitalIn the event this information is protected by the Federal Confidentiality of Alcohol and Drug Abuse Patient Records regulations: The Federal rules restrict any use of the information to criminally investigate or prosecute any alcohol or drug abuse patient.[facility] HospitalIn the event this information is protected by the Federal Confidentiality of Alcohol and Drug Abuse Patient Records regulations: The Federal rules restrict any use of the information to criminally investigate or prosecute any alcohol or drug abuse patient.[facility] HospitalIn the event this information is protected by the Federal Confidentiality of Alcohol and Drug Abuse Patient Records regulations: The Federal rules restrict any use of the information to criminally investigate or prosecute any alcohol or drug abuse patient.[facility] HospitalIn the event this information is protected by the Federal Confidentiality of Alcohol and Drug Abuse Patient Records regulations: The Federal rules restrict any use of the information to criminally investigate or prosecute any alcohol or drug abuse patient.[facility] HospitalIn the event this information is protected by the Federal Confidentiality of Alcohol and Drug Abuse Patient Records regulations: The Federal rules restrict any use of the information to criminally investigate or prosecute any alcohol or drug abuse patient.[facility] HospitalIn the event this information is protected by the Federal Confidentiality of Alcohol and Drug Abuse Patient Records regulations: The Federal rules restrict any use of the information to criminally investigate or prosecute any alcohol or drug abuse patient.[facility] HospitalIn the event this information is protected by the Federal Confidentiality of Alcohol and Drug Abuse Patient Records regulations: The Federal rules restrict any use of the information to criminally investigate or prosecute any alcohol or drug abuse patient.[facility] HospitalIn the event this information is protected by the Federal Confidentiality of Alcohol and Drug Abuse Patient Records regulations: The Federal rules restrict any use of the information to criminally investigate or prosecute any alcohol or drug abuse patient.[facility] HospitalIn the event this information is protected by the Federal Confidentiality of Alcohol and Drug Abuse Patient Records regulations: The Federal rules restrict any use of the information to criminally investigate or prosecute any alcohol or drug abuse patient.[facility] HospitalIn the event this information is protected by the Federal Confidentiality of Alcohol and Drug Abuse Patient Records regulations: The Federal rules restrict any use of the information to criminally investigate or prosecute any alcohol or drug abuse patient.[facility] HospitalIn the event this information is protected by the Federal Confidentiality of Alcohol and Drug Abuse Patient Records regulations: The Federal rules restrict any use of the information to criminally investigate or prosecute any alcohol or drug abuse patient.[facility] HospitalIn the event this information is protected by the Federal Confidentiality of Alcohol and Drug Abuse Patient Records regulations: The Federal rules restrict any use of the information to criminally investigate or prosecute any alcohol or drug abuse patient.[facility] HospitalIn the event this information is protected by the Federal Confidentiality of Alcohol and Drug Abuse Patient Records regulations: The Federal rules restrict any use of the information to criminally investigate or prosecute any alcohol or drug abuse patient.[facility] HospitalIn the event this information is protected by the Federal Confidentiality of Alcohol and Drug Abuse Patient Records regulations: The Federal rules restrict any use of the information to criminally investigate or prosecute any alcohol or drug abuse patient.[facility] HospitalIn the event this information is protected by the Federal Confidentiality of Alcohol and Drug Abuse Patient Records regulations: The Federal rules restrict any use of the information to criminally investigate or prosecute any alcohol or drug abuse patient.[facility] HospitalIn the event this information is protected by the Federal Confidentiality of Alcohol and Drug Abuse Patient Records regulations: The Federal rules restrict any use of the information to criminally investigate or prosecute any alcohol or drug abuse patient.[facility] HospitalIn the event this information is protected by the Federal Confidentiality of Alcohol and Drug Abuse Patient Records regulations: The Federal rules restrict any use of the information to criminally investigate or prosecute any alcohol or drug abuse patient.[facility] HospitalIn the event this information is protected by the Federal Confidentiality of Alcohol and Drug Abuse Patient Records regulations: The Federal rules restrict any use of the information to criminally investigate or prosecute any alcohol or drug abuse patient.[facility] HospitalIn the event this information is protected by the Federal Confidentiality of Alcohol and Drug Abuse Patient Records regulations: The Federal rules restrict any use of the information to criminally investigate or prosecute any alcohol or drug abuse patient.[facility] HospitalIn the event this information is protected by the Federal Confidentiality of Alcohol and Drug Abuse Patient Records regulations: The Federal rules restrict any use of the information to criminally investigate or prosecute any alcohol or drug abuse patient.[facility] HospitalIn the event this information is protected by the Federal Confidentiality of Alcohol and Drug Abuse Patient Records regulations: The Federal rules restrict any use of the information to criminally investigate or prosecute any alcohol or drug abuse patient.[facility] HospitalIn the event this information is protected by the Federal Confidentiality of Alcohol and Drug Abuse Patient Records regulations: The Federal rules restrict any use of the information to criminally investigate or prosecute any alcohol or drug abuse patient.[facility] HospitalIn the event this information is protected by the Federal Confidentiality of Alcohol and Drug Abuse Patient Records regulations: The Federal rules restrict any use of the information to criminally investigate or prosecute any alcohol or drug abuse patient.[facility] HospitalIn the event this information is protected by the Federal Confidentiality of Alcohol and Drug Abuse Patient Records regulations: The Federal rules restrict any use of the information to criminally investigate or prosecute any alcohol or drug abuse patient.[facility] HospitalIn the event this information is protected by the Federal Confidentiality of Alcohol and Drug Abuse Patient Records regulations: The Federal rules restrict any use of the information to criminally investigate or prosecute any alcohol or drug abuse patient.[facility] HospitalIn the event this information is protected by the Federal Confidentiality of Alcohol and Drug Abuse Patient Records regulations: The Federal rules restrict any use of the information to criminally investigate or prosecute any alcohol or drug abuse patient.[facility] HospitalIn the event this information is protected by the Federal Confidentiality of Alcohol and Drug Abuse Patient Records regulations: The Federal rules restrict any use of the information to criminally investigate or prosecute any alcohol or drug abuse patient.[facility] HospitalIn the event this information is protected by the Federal Confidentiality of Alcohol and Drug Abuse Patient Records regulations: The Federal rules restrict any use of the information to criminally investigate or prosecute any alcohol or drug abuse patient.[facility] HospitalIn the event this information is protected by the Federal Confidentiality of Alcohol and Drug Abuse Patient Records regulations: The Federal rules restrict any use of the information to criminally investigate or prosecute any alcohol or drug abuse patient.[facility] HospitalIn the event this information is protected by the Federal Confidentiality of Alcohol and Drug Abuse Patient Records regulations: The Federal rules restrict any use of the information to criminally investigate or prosecute any alcohol or drug abuse patient.[facility] HospitalIn the event this information is protected by the Federal Confidentiality of Alcohol and Drug Abuse Patient Records regulations: The Federal rules restrict any use of the information to criminally investigate or prosecute any alcohol or drug abuse patient.[facility] HospitalIn the event this information is protected by the Federal Confidentiality of Alcohol and Drug Abuse Patient Records regulations: The Federal rules restrict any use of the information to criminally investigate or prosecute any alcohol or drug abuse patient.[facility] HospitalIn the event this information is protected by the Federal Confidentiality of Alcohol and Drug Abuse Patient Records regulations: The Federal rules restrict any use of the information to criminally investigate or prosecute any alcohol or drug abuse patient.[facility] HospitalIn the event this information is protected by the Federal Confidentiality of Alcohol and Drug Abuse Patient Records regulations: The Federal rules restrict any use of the information to criminally investigate or prosecute any alcohol or drug abuse patient.[facility] HospitalIn the event this information is protected by the Federal Confidentiality of Alcohol and Drug Abuse Patient Records regulations: The Federal rules restrict any use of the information to criminally investigate or prosecute any alcohol or drug abuse patient.[facility] HospitalIn the event this information is protected by the Federal Confidentiality of Alcohol and Drug Abuse Patient Records regulations: The Federal rules restrict any use of the information to criminally investigate or prosecute any alcohol or drug abuse patient.[facility] HospitalIn the event this information is protected by the Federal Confidentiality of Alcohol and Drug Abuse Patient Records regulations: The Federal rules restrict any use of the information to criminally investigate or prosecute any alcohol or drug abuse patient.[facility] HospitalIn the event this information is protected by the Federal Confidentiality of Alcohol and Drug Abuse Patient Records regulations: The Federal rules restrict any use of the information to criminally investigate or prosecute any alcohol or drug abuse patient.[facility] HospitalIn the event this information is protected by the Federal Confidentiality of Alcohol and Drug Abuse Patient Records regulations: The Federal rules restrict any use of the information to criminally investigate or prosecute any alcohol or drug abuse patient.[facility] HospitalIn the event this information is protected by the Federal Confidentiality of Alcohol and Drug Abuse Patient Records regulations: The Federal rules restrict any use of the information to criminally investigate or prosecute any alcohol or drug abuse patient.[facility] HospitalIn the event this information is protected by the Federal Confidentiality of Alcohol and Drug Abuse Patient Records regulations: The Federal rules restrict any use of the information to criminally investigate or prosecute any alcohol or drug abuse patient.[facility] HospitalIn the event this information is protected by the Federal Confidentiality of Alcohol and Drug Abuse Patient Records regulations: The Federal rules restrict any use of the information to criminally investigate or prosecute any alcohol or drug abuse patient.[facility] HospitalIn the event this information is protected by the Federal Confidentiality of Alcohol and Drug Abuse Patient Records regulations: The Federal rules restrict any use of the information to criminally investigate or prosecute any alcohol or drug abuse patient.[facility] HospitalIn the event this information is protected by the Federal Confidentiality of Alcohol and Drug Abuse Patient Records regulations: The Federal rules restrict any use of the information to criminally investigate or prosecute any alcohol or drug abuse patient.[facility] HospitalIn the event this information is protected by the Federal Confidentiality of Alcohol and Drug Abuse Patient Records regulations: The Federal rules restrict any use of the information to criminally investigate or prosecute any alcohol or drug abuse patient.[facility] HospitalIn the event this information is protected by the Federal Confidentiality of Alcohol and Drug Abuse Patient Records regulations: The Federal rules restrict any use of the information to criminally investigate or prosecute any alcohol or drug abuse patient.[facility] HospitalIn the event this information is protected by the Federal Confidentiality of Alcohol and Drug Abuse Patient Records regulations: The Federal rules restrict any use of the information to criminally investigate or prosecute any alcohol or drug abuse patient.[facility] HospitalIn the event this information is protected by the Federal Confidentiality of Alcohol and Drug Abuse Patient Records regulations: The Federal rules restrict any use of the information to criminally investigate or prosecute any alcohol or drug abuse patient.[facility] HospitalIn the event this information is protected by the Federal Confidentiality of Alcohol and Drug Abuse Patient Records regulations: The Federal rules restrict any use of the information to criminally investigate or prosecute any alcohol or drug abuse patient.[facility] HospitalIn the event this information is protected by the Federal Confidentiality of Alcohol and Drug Abuse Patient Records regulations: The Federal rules restrict any use of the information to criminally investigate or prosecute any alcohol or drug abuse patient.[facility] Reason for Visit (unrecogniz ed section [...] [place] [address] [place] [address] Referral ID Status Reason Start Date Expiration Date Visits Requested Visits Authorized [id number] Pending Review Perform Procedure 11/14/2023 11/13/2024 1 1 Reason Comments Hearing Loss Reason Comments Chronic ITP 6 week follow up Reason Comments Call Request Specialty Diagnoses / Procedures [facility] Contact Diagnoses 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 [H71.92] Procedures [place] TMPP MASTOIDECT NTC/RCNSTED CANAL WALL OCR WA GRAFT EAR CRTLG AUTOGENOUS NOSE/EAR [place] TMPP MASTOIDECTOMY W/OSSICULAR CHAIN RECNSTJ Left Side Tympanomastoidectomy Canal Wall Up; Ossiculoplasty; [place] [address] [place] [address] [facility] [place] [address] [place] [address] Referral ID Status Reason Start Date Expiration Date Visits Re quested Visits Authorized [id number] 1 1 Reason Onset Date Comments Refill Request 01/25/2024 Reason Onset Date Comments Refill Request 04/02/2024 Reason Comments Thyroid fine needle biopsy at [facility]/ITP Reason Comments Pain Specialty Diagnoses / Procedures Referred By [facility] Referred To Contact Orthopaedic Surgery Diagnoses Posterior left knee pain Stephanie Dumont, JORDI [address] [place] [address] Jr. 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 [address] [address] Phone: tel: fax: Mar Mayo MD [address] [place] [address] Phone: tel: fax: Referral ID Status Reason Start Date Expiration Date V isits Requested Visits Authorized [id number] Closed Specialty Services Required 04/25/2024 10/22/2024 1 1 Reason Comments Chronic ITP High Blood Sugar Reason Comments Post-op Reason Comments Anemia Reason Comments Medication Assistance Program Medication Authorization [place] [employer] [place] Reason Comments Med Refill Reason Comments Follow-up Had hearing test Reason Comments Hypertension Reason Onset Date Comments Med Refill 01/01/2025 Reason Comments Hospital Follow-up Care Teams (unrecognized sec tion and content) Team Status: Active Member Role Status Dates NON STAFF Primary Care Provider Active Team Status: Inactive Member Role Status Dates Gilson Ceja MD Attending Provider Active Start : August 21, 2024 End: August 21, 2024 NON STAFF Primary Care Provider Active Start: August 21, 2024 End: August 21, 2024 Tab Builder Relationship Specialty Start Date End Date Paloma Saldaña [facility] [place] [address] PCP - General Family Practice 05/26/21 05/31/21 Team Status: Inactive Member Role Status Dates Gilson Ceja MD Attending Provider Active NON STAFF Primary Care Provider Active Tab Builder Relationship Specialty Start Date End Date Shaikh Biswas MD [address] [place] [address] PCP - General Primary Care 09/15/22 Tab Builder Relationship Specialty Start Date End Date Shaikh Biswas MD [address] [place] [address] PCP - General Primary Care 09/15/22 Tab Builder Relationship Specialty Start Date End Date Shaikh Biswas MD [address] [place] [address] PCP - General Primary Care 09/15/22 Tab Builder Relationship Specialty Start Date End Date Shaikh Biswas MD [address] [place] [address] PCP - General Primary Care 09/15/22 Tab Builder Relationship Specialty Start Date End Date Tim Stephanie [address] [place] [address] PCP - General 04/20/23 Tab Builder Relationship Specialty Start Date End Date Stephanie Dumont [address] [place] [address] PCP - General 04/20/23 Tab Builder Relationship Specialty Start Date End Date Stephanie Dumont [address] [place] [address] PCP - General 04/20/23 Tab Builder Relationship Specialty Start Date End Date Wilfred Polanco MD [address] [place] [address] PCP - General Family Medicine 07/17/23 Stephanie Dumont NP [address] [place] [address] Nurse Practitioner Family Medicine 04/09/23 Tab Builder Relationship Specialty Start Date End Date Wilfred Polanco MD [address] [place] [address] PCP - General Family Medicine 07/17/23 Stephanie Dumont NP [address] [place] [address] Nurse Practitioner Family Medicine 04/09/23 Tab Builder Relationship Specialty Start Date End Date Wilfred Polanco MD [address] [place] [address] PCP - General Family Medicine 08/17/23 Stephanie Dumont NP [address] [place] [address] Nurse Practitioner Family Medicine 04/09/23 Tab Builder Relationship Specialty Start Date End Date Wilfred Polanco MD [address] [place] [address] PCP - General Family Medicine 08/17/23 Stephanie Dumont NP [address] [place] [address] Nurse Practitioner Family Medicine 04/09/23 Tab Builder Relationship Specialty Start Date End Date Wilfred Polanco MD [address] [place] [address] PCP - General Family Medicine 08/17/23 Stephanie Dumont NP [address] [place] [address] Nurse Practitioner Family Medicine 04/09/23 Tab Builder Relationship Specialty Start Date End Date Stephanie Dumont [address] [place], [place] [address] PCP - General 04/20/23 Tab Builder Relationship Specialty Start Date End Date Stephanie Dumont [address] [place] [address] PCP - General 04/20/23 Tab Builder Relationship Specialty Start Date End Date Stephanie Dumont [address] [place] [address] PCP - General 04/20/23 Tab Builder Relationship Specialty Start Date End Date Stephanie Dumont [address] [place] [address] PCP - General 04/20/23 Tab Builder Relationship Specialty Start Date End Date Stephanie Dumont PCP - General 04/20/23 Tab Builder Relationship Specialty Start Date End Date Stephanie Dumont PCP - General 04/20/23 Tab Builder Relationship Specialty Start Date End Date Stephanie Dumont PCP - General 04/20/23 Tab Builder Relationship Specialty Start Date End Date Stephanie Dumont PCP - General 04/20/23 Tab Builder Relationship Specialty Start Date End Date Stephanie Dumont PCP - General 04/20/23 Tab Builder Relationship Specialty Start Date End Date Stephanie Dumont PCP - General 04/20/23 Tab Builder Relationship Specialty Start Date End Date Stephanie Dumont PCP - General 04/20/23 Tab Builder Relationship Specialty Start Date End Date Wilfred Polanco MD [address] [place] [address] PCP - General Family Medicine 08/17/23 Stephanie Dumont NP [address] [place] [address] PCP - [facility] 10/09/23 12/07/70 Stephanie Dumont NP [address] [place] [address] Nurse Practitioner Family Medicine 04/09/23 Tab Builder Relationship Specialty Start Date End Date Wilfred Polanco MD [address] [place] [address] PCP - General Family Medicine 08/17/23 Stephanie Dumont NP [address] [place] [address] [facility] 10/09/23 12/07/70 Stephanie Dumont NP [address] [place] [address] Nurse Practitioner Family [facility] 04/09/23 Team Status: Active Member Role Status Dates Stephanie Dumont Primary Care Provider Active Sta rt: February 12, 2024 Jose Jarrett DO Attending Provider Active Sta rt: February 12, 2024 Team Status: Inactive Member Role Status Dates Simon Zuniga MD Attending Provider Active Start: April 16, 2024 End: April 16, 2024 Tab Builder Relationship Specialty Start Date End Date Stephanie Dumont [facility] General 04/20/23 Tab Builder Relationship Specialty Start Date End Date Wilfred Polanco MD [address] [place] [address] PCP - General Family Medicine 08/17/23 Stephanie Dumont NP [address] [place] [address] [facility] 10/09/23 12/07/70 Stephanie Dumont NP [address] [place] [address] Nurse Practitioner Family Medicine 04/09/23 Tab Builder Relationship Specialty Start Date End Date Stephanie Dumont NP [address] [place] [address] [facility] 10/09/23 12/07/70 Unallocated, Israel Miller MD [address] [address] PCP - General Family Medicine 04/24/24 Stephanie Dumont NP [address] [place] [address] Nurse Practitioner Family Medicine 04/09/23 Tab Builder Relationship Specialty Start Date End Date Stephanie Dumont NP [address] [place] [address] [facility] 10/09/23 12/07/70 Stephanie Dumont NP [address] [place] [address] Nurse Practitioner Family Medicine 04/09/23 Tab Builder Relationship Specialty Start Date End Date Stephanie Dumont NP [address] [place] [address] [facility] 10/09/23 12/07/70 Wilfred Polanco MD [address] [place] [address] PCP - General Family Medicine 05/13/24 Stephanie Dumont NP [address] [place] [address] Nurse Practitioner Family Medicine 04/09/23 Tab Builder Relationship Specialty Start Date End Date Stephanie Dumont NP [address] [place] [address] PCP - [facility] 10/09/23 12/07/70 Wilfred Polanco MD [address] [place] [address] PCP - General Family Medicine 05/13/24 Stephanie Dumont NP [address] [place] [address] Nurse Practitioner Family Medicine 04/09/23 Tab Builder Relationship Specialty Start Date End Date Stephanie Dumont NP [address] [place] [address] PCP - [facility] 10/09/23 12/07/70 Wilfred Polanco MD [address] [place] [address] PCP - General Family Medicine 05/13/24 Stephanie Dumont NP [address] [place] [address] Nurse Practitioner Family Medicine 04/09/23 Tab Builder Relationship Specialty Start Date End Date Stephanie Dumont NP [address] [place] [address] [facility] - [facility] 10/09/23 12/07/70 Wilfred Polanco MD [address] [place] [address] PCP - General Family Medicine 05/13/24 Stephanie Dumont NP [address] [place] [address] Nurse Practitioner Family Medicine 04/09/23 Tab Builder Relationship Specialty Start Date End Date Stephanie Dumont NP [address] [place] [address] [facility] 10/09/23 12/07/70 Wilfred Polanco MD [address] [place] [address] PCP - General Family [facility] 05/13/24 Stephanie Dumont NP [address] [place] [address] Nurse Practitioner Family Medicine 04/09/23 Tab Builder Relationship Specialty Start Date End Date Stephanie Dumont NP [address] [place] [address] [facility] 10/09/23 12/07/70 Wilfred Polanco MD [address] [place] [address] PCP - General Family Medicine 05/13/24 Stephanie Dumont NP [address] [place] [address] Nurse Practitioner Family Medicine 04/09/23 Tab Builder Relationship Specialty Start Date End Date Stephanie Dumont NP [address] [place] [address] PCP - [facility] 10/09/23 12/07/70 Wilfred Polanco MD [address] [place] [address] PCP - General Family Medicine 05/13/24 Stephanie Dumont NP [address] [place] [address] Nurse Practitioner Family Medicine 04/09/23 Tab Builder Relationship Specialty Start Date End Date Stephanie Dumont PCP - General 04/20/23 Tab Builder Relationship Specialty Start Date End Date Wilfred Polanco MD [address] [place] [address] PCP - General Family Medicine 08/17/23 Stephanie Dumont NP [address] [place] [address] PCP - [facility] 10/09/23 12/07/70 Stephanie Dumont NP [address] [place] [address] Nurse Practitioner Family Medicine 04/09/23 Tab Builder Relationship Specialty Start Date End Date Wilfred Polanco MD [address] [place] [address] PCP - General Family Medicine 08/17/23 Stephanie Dumont NP [address] [place] [address] PCP - [facility] 10/09/23 12/07/70 Stephanie Dumont NP [address] [place] [address] Nurse Practitioner Family Medicine 04/09/23 Tab Builder Relationship Specialty Start Date End Date Wilfred Polanco MD [address] [place] [address] PCP - General Family Medicine 08/17/23 Stephanie Dumont NP [address] [place] [address] [facility] 10/09/23 12/07/70 Stephanie Dumont NP [address] [place] [address] Nurse Practitioner Family Medicine 04/09/23 Tab Builder Relationship Specialty Start Date End Date Wilfred Polanco MD [address] [place] [address] PCP - General Family Medicine 08/17/23 Stephanie Dumont NP [address] [place] [address] PCP - [facility] 10/09/23 12/07/70 Stephanie Dumont NP [address] [place] [address] Nurse Practitioner Family Medicine 04/09/23 Tab Builder Relationship Specialty Start Date End Date Wilfred Polanco MD [address] [place] [address] PCP - General Family Medicine 08/17/23 Stephanie Dumont NP [address] [place] [address] PCP - [facility] 10/09/23 12/07/70 Stephanie Dumont NP [address] [place] [address] Nurse Practitioner Family Medicine 04/09/23 Tab Builder Relationship Specialty Start Date End Date Wilfred Polanco MD [address] [place] [address] PCP - General Family Medicine 08/17/23 Stephanie Dumont NP [address] [place] [address] PCP [facility] 10/09/23 12/07/70 Stephanie Dumont NP [address] [place] [address] Nurse Practitioner Family Medicine 04/09/23 Tab Builder Relationship Specialty Start Date End Date Wilfred Polanco MD [address] [place] [address] PCP - General Family [facility] 08/17/23 Stephanie Dumont NP [address] [place] [address] PCP - [facility] 10/09/23 12/07/70 Stephanie Dumont NP [address] [place] [address] Nurse Practitioner Family Medicine 04/09/23 Tab Builder Relationship Specialty Start Date End Date Wilfred Polanco MD [address] [place] [address] PCP - General Family Medicine 08/17/23 Stephanie Dumont NP [address] [place] [address] PCP [facility] 10/09/23 12/07/70 Stephanie Dumont NP [address] [place] [address] Nurse Practitioner Family Medicine 04/09/23 Tab Builder Relationship Specialty Start Date End Date Stephanie Dumont PCP - General 04/20/23 Tab Builder Relationship Specialty Start Date End Date Stephanie Dumont PCP - General 04/20/23 Tab Builder Relationship Specialty Start Date End Date Stephanie Dumont NP [address] [place] [address] [facility] 10/09/23 12/07/70 Wilfred Polanco MD [address] [place] [address] PCP - General Family Medicine 05/13/24 Stephanie Dumont NP [address] [place] [address] Nurse Practitioner Family Medicine 04/09/23 Tab Builder Relationship Specialty Start Date End Date Stephanie Dumont NP [address] [place] [address] [facility] 10/09/23 12/07/70 Wilfred Polanco MD [address] [place] [address] PCP - General Family [facility] 05/13/24 Stephanie Dumont NP [address] [place] [address] Nurse Practitioner Family Medicine 04/09/23 Tab Builder Relationship Specialty Start Date End Date Stephanie Dumont PCP - General 04/20/23 Tab Builder Relationship Specialty Start Date End Date Stephanie Dumont NP [address] [place] [address] [facility] 10/09/23 12/07/70 Wilfred Polanco MD [address] [place] [address] PCP - General Family Medicine 05/13/24 Stephanie Dumont NP [address] [place] [address] Nurse Practitioner Family Medicine 04/09/23 Tab Builder Relationship Specialty Start Date End Date Stephanie Dumont NP [address] [place] [address] PCP - [facility] 10/09/23 12/07/70 Wilfred Polanco MD [address] [place] [address] PCP - General Family Medicine 05/13/24 Stephanie Dumont NP [address] [place] [address] Nurse Practitioner Family Medicine 04/09/23 Tab Builder Relationship Specialty Start Date End Date Stephanie Dumont PCP - General 04/20/23 Tab Builder Relationship Specialty Start Date End Date Stephanie Dumont PCP - General 04/20/23 Tab Builder Relationship Specialty Start Date End [facility] 04/20/23 Tab Builder Relationship Specialty Start Date End Date Stephanie Dumont PCP - General 04/20/23 Tab Builder Relationship Specialty Start Date End Date Stephanie Dumont PCP - General 04/20/23 Tab Builder Relationship Specialty Start Date End Date Stephanie Dumont NP [address] [place] [address] PCP [facility] 10/09/23 12/07/70 Wilfred Polanco MD [address] [place] [address] PCP - General Family Medicine 05/13/24 Stephanie Dumont NP [address] [place] [address] Nurse Practitioner Family Medicine 04/09/23 Tab Builder Relationship Specialty Start Date End Date Stephanie Dumont PCP - General 04/20/23 Tab Builder Relationship Specialty Start Date End Date Stephanie Dumont NP [address] [place] [address] PCP [facility] 10/09/23 12/07/70 Wilfred Polanco MD [address] [place] [address] PCP - General Family Medicine 05/13/24 Stephanie Dumont NP [address] [place] [address] Nurse Practitioner Family Medicine 04/09/23 Tab Builder Relationship Specialty Start Date End Date Stephanie Dumont NP [address] [place] [address] PCP [facility] 10/09/23 12/07/70 Wilfred Polanco MD [address] [place] [address] PCP - General Family [facility] 05/13/24 Stephanie Dumont NP [address] [place] [address] Nurse Practitioner Family Medicine 04/09/23 Tab Builder Relationship Specialty Start Date End Date Stephanie Dumont NP [address] [place] [address] PCP - [facility] 10/09/23 12/07/70 Wilfred Polanco MD [address] [place] [address] PCP - General Family Medicine 05/13/24 Stephanie Dumont NP [address] [place] [address] Nurse Practitioner Family Medicine 04/09/23 Tab Builder Relationship Specialty Start Date End Date Stephanie Dumont NP [address] [place] [address] [facility] 10/09/23 12/07/70 Wilfred Polanco MD [address] [address] [place] [address] PCP - General Family Medicine 05/13/24 Stephanie Dumont NP [address] [place] [address] Nurse Practitioner Family Medicine 04/09/23 Tab Builder Relationship Specialty Start Date End Date Stephanie Dumont NP [address] [place] [address] PCP [facility] 10/09/23 12/07/70 Wilfred Polanco MD [address] [place] [address] PCP - General Family Medicine 05/13/24 Stephanie Dumont NP [address] [place] [address] Nurse Practitioner Family Medicine 04/09/23 Tab Builder Relationship Specialty Start Date End Date Stephanie Dumont PCP - General 04/20/23 Tab Builder Relationship Specialty Start Date End Date Stephanie Dumont NP [address] [place] [phone] PCP - [facility] 10/09/23 12/07/70 Wilfred Polanco MD [address] [place] [address] PCP - General Family Medicine 05/13/24 Stephanie Dumont NP [address] [place] [address] Nurse Practitioner Family Medicine 04/09/23 Tab Builder Relationship Specialty Start Date End Date Stephanie Dumont NP [address] [place] [address] PCP - [facility] 10/09/23 12/07/70 Wilfred Polanco MD [address] [place] [address] PCP - General Family Medicine 05/13/24 Stephanie Dumont NP [address] [place] [address] Nurse Practitioner Family Medicine 04/09/23 Tab Builder Relationship Specialty Start Date End Date Stephanie Dumont NP [address] [place] [address] PCP [facility] 10/09/23 12/07/70 Wilfred Polanco MD [address] [place] [address] PCP - General Family Medicine 05/13/24 Stephanie Dumont NP [address] [place] [address] Nurse Practitioner Family Medicine 04/09/23 Tab Builder Relationship Specialty Start Date End Date Stephanie Dumont NP [address] [place] [address] [facility] 10/09/23 12/07/70 Wilfred Polanco MD [address] [place] [phone] PCP - General Family Medicine 05/13/24 Stephanie Dumont NP [address] [place] [address] Nurse Practitioner Family Medicine 04/09/23 Tab Builder Relationship Specialty Start Date End Date Stephanie Dumont NP [address] [place] [address] PCP [facility] 10/09/23 12/07/70 Wilfred Polanco MD [address] [place] [address] PCP - General Family Medicine 05/13/24 Stephanie Dumont NP [address] [place] [address] Nurse Practitioner Family Medicine 04/09/23 Tab Builder Relationship Specialty Start Date End Date Stephanie Dumont PCP - General 04/20/23 Tab Builder Relationship Specialty Start Date End Date Stephanie Dumont NP [address] [place] [address] [facility] 10/09/23 12/07/70 Wilfred Polanco MD [address] [place] [phone] PCP - General Family Medicine 05/13/24 Stephanie Dumont NP [address] [place] [address] Nurse Practitioner Family Medicine 04/09/23 Team Status: Active Member Role Status Dates Stephanie Dumont Primary Care Provider Active Team Status: Inactive Member Role Status Dates Gilson Ceja MD Attending Provider Active Start : January 27, 2025 End: January 27, 2025 Stephanie Dumont Primary Care Provider Active Sta rt: January 27, 2025 End: January 27, 2025 Tab Builder Relationship Specialty Start Date End Date Stephanie Dumont PCP - General 04/20/23 Tab Builder Relationship Specialty Start Date End Date Stephanie Dumont PCP - General 04/20/23 Tab Builder Relationship Specialty Start Date End Date Stephanie Dumont, ELECT[employer]IC MOTOR CONTROLS ASSEMBLER-ROUTE SALES MANAGER [address] [address] PCP - General 11/29/24 Rinku [place] [phone] Referring Physician Hematology and Oncology 11/29/24 Tab Builder Relationship Specialty Start Date End Date Stephanie Dumont PCP - General 04/20/23 Team Status: Inactive Member Role Status Dates Stephanie Dumont Primary Care Provider Active Sta rt: March 13, 2025 End: March 13, 2025 Stephanie Dumont Attending Provider Active Start: March 13, 2025 End: March 13, 2025 Tab Builder Relationship Specialty Start Date End Date Stephanie Dumont PCP - General 04/20/23 Goals (unrecognized section [...] pain scores based on patient preference? Yes 5768 (Given - Provid er: Pamela Paul RN) [...] needed, Starting on Mon12/18/23 at 0905, Intraprocedure 0905 (Given - Provid er: Susanna Graf MD [...] (CANCELED) As needed, Starting on Mon12/18/23 at 09, Intraprocedure 905 (Given - Provid er: Susanna Graf MD [...] MD - Comment: Mixed with 1ml Epi) Scheduled Medication Order 02/03/2025 02/04/2025 02/05/2025 ceFAZolin (Ancef) 2 g in dextrose (iso) IV 50 mL 2 g, intravenous, at 100 mL/hr, Administer over 30 Minutes, Once, On Mon02/05/25 at 1030, For 1 dose, Preprocedure, Administer within 60 minutes prior to incision. Duplex bag - activate before hanging., Dosing of this medication varies based on severity of illness. Does this patient have sepsis or concern for sepsis (probable or documented infection plus systemic manifestations of infection)? No, Suspected Indication (Select all that apply): Surgical Prophylaxis, Indications: Surgical Prophylaxis 1030 (Due) lidocaine PF (Xylocaine) 10 mg/mL (1 %) injection 1 mg 1 mg (0.1 mL), subcutaneous, Once, On Mon02/05/25 at 1445, For 1 dose, Recovery (only), To be used for IV insertion ONLY 1445 (Due) Continuous Medication Order 02/03/2025 02/04/2025 02/05/2025 lactated Ringer's infusion 50 mL/hr, intravenous, Continuous, Starting on Mon02/05/25 at 1445, For 1 hour, Recovery (only) 1422 (Continued from OR - Provider: Latia Knowles RN)1521 (Due: Order Ending - Provider: Latia Knowles RN - Comment: [Order ends at this time. Document the following action when infusion is complete: Stopped]) PRN Medication Order 02/03/2025 02/04/2025 02/05/2025 albuterol 2.5 mg /3 mL (0.083 %) nebulizer solution 2.5 mg 2.5 mg, nebulization, Once as needed, wheezing, Starting on Mon02/05/25 at 1418, For 1 dose, Recovery (only) balanced salts (BSS) intraocular solution (CANCELED) As needed, Starting on Mon02/05/25 at 1237, Intraprocedure 1237 (Given - Provid er: Susanna Graf MD) ciprofloxacin-dexamethasone (CiproDEX) otic suspension (CANCELED) As needed, Starting on Mon02/05/25 at 1238, Intraprocedure 1238 (Given - Provid er: Susanna Graf MD) droperidol (Inapsine) injection 0.625 mg 0.625 mg, intravenous, Once as needed, nausea/vomiting, second line, Starting on Mon02/05/25 at 1418, For 1 dose, Recovery (only), Monitor QTc while on therapy (2 lead monitoring) EPINEPHrine (Adrenalin) 1 mL in sodium chloride 0.9% 19 mL syringe (CANCELED) As needed, Starting on Mon02/05/25 at 1238, Intraprocedure 1238 (Given - Provid er: Susanna Graf MD) fentaNYL PF (Sublimaze) injection 12.5 mcg 12.5 mcg, intravenous, Every 5 min PRN, pain mild (1-3), first line, Starting on Mon02/05/25 at 1418, Recovery (only), Max total of 200 micrograms regardless of dose., If ordered PRN for pain, nurse is permitted to administer this medication for higher pain scores based on patient preference? Yes HYDROmorphone (Dilaudid) injection 0.2 mg 0.2 mg, intravenous, Every 5 min PRN, pain moderate (4-6), first line, Starting on Mon02/05/25 at 1418, Recovery (only), Max total of 4 mg regardless of dose. HYDROmorphone (Dilaudid) injection 0.5 mg 0.5 mg, intravenous, Every 5 min PRN, pain severe (7-10), first line, Starting on Mon02/05/25 at 1418, Recovery (only), Max total of 4 mg regardless of dose. 1429 (Given - Provid er: Latia Knowles RN)1437 (Given - Provider: Latia Knowles RN) labetaloL (Normodyne,Trandate) injection 5 mg 5 mg, intravenous, Administer over 1 Minutes, Once as needed, systolic blood pressure greater than 180 mmHg, dystolic blood pressure greater than 100 mmHg and heart rate greater than 60 BPM, Starting on Mon02/05/25 at 1418, For 1 dose, Recovery (only) ondansetron (Zofran) injection 4 mg 4 mg, intravenous, Once as needed, nausea/vomiting, first line, Starting on Mon02/05/25 at 1418, For 1 dose, Recovery (only), When administering via IV Push, administer over 3-5 minutes. oxyCODONE-acetaminophen (Percocet) 5-325 mg per tablet 1 tablet 1 tablet, oral, Every 4 hours PRN, pain moderate (4-6), second line, Starting on Mon02/05/25 at 1418, Recovery (only), When able to take oral medications., If ordered PRN for pain, nurse is permitted to administer this medication for higher pain scores based on patient preference? Yes 1546 (Given - Provid er: Mei Mayorga RN) oxygen (O2) therapy inhalation, Continuous - O2/gases, oxygen, Starting on Mon02/05/25 at 1418, Recovery (only), Device: Nasal Cannula, Rate in liters per minute: Other, Custom Value: 1-6 LPM, Keep O2 Sat Above: 92% 1422 (Start - Provid er: Latia Knowles RN)1430 (Rate Change Medical Gas - Provider: Latia Knowles RN)1450 (Stopped - Provider: Latia Knowles RN) sodium chloride 0.9 % irrigation solution (CANCELED) As needed, Starting on Mon02/05/25 at 1238, Intraprocedure 1238 (Given - Provid er: Susanna Graf MD - Comment: WARMED BOTTLE DISPENSED TO FIELD) FOR RECORDS PERTAINING TO PATIENTS WHO ARE [...] BE BASED ON THE PRIMARY CLINICAL RECORDS. [facility] [employer] [facility]. provides no warranty or guarantee of the accuracy or completeness of information in this document.
== END 2025-03-19 11:07 | disposition home or self-care (01) ==
LOC: US 11:07
PROVIDERS: PCP Nurse Practitioner; Visit Provider Otolaryngology
DX: E04.1 Nontoxic single thyroid nodule (principal)
CPT/HCPCS: 76536

== ENCOUNTER 2025-04-23 11:48 | Outpatient (OUT) | payer MEDICARE, SELFPAY ==
--- OUTSIDE RECORDS SUMMARY | 2025-04-11 14:00 | XMS_ITS | Encounter Summary ---
Author Organization [facility] Address [address] [place], [place] [id number] Care Team Providers Care Aerial Hurricane Hunter Name Role Phone Stephanie Dumont Primary Care Provider Unavailabl e Source Comments In the event this information is protected by the Federal Confidentiality of Alcohol and Drug AbusePatient Records regulations: The Federal rules restrict any use of the information to criminally investigate or prosecute any alcohol or drug abuse patient.[facility] Reason for Visit * Reading Prior Authorization (Routine) - Authorized Specialty Diagnoses / Procedures Referred By Contac t Referred To Contact Diagnoses 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) Rinku Dupree MD [facility] [place] [address] Phone: tel: fax: Rinku Dupree MD [facility] [place] [address] Phone: tel: fax: Referral ID Status Reason Start Date Expiration Date V isits Requested Visits Authorized [id number] Authorized 12/04/2024 12/04/2025 1 25 Encounter Details Date Type Department Care Team (Latest Contact Info) Description 04/11/2025 2:00 PM EDT Infusion Center Hematology/Oncology [facility] [place] [address] 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 chronic kidney disease [...] is lower risk 9 12/15/2022 Data from: https://www.neighborhoodatlas.medicine.[facility].edu/. Last address used for calculation [address] 12/15/2022 Comments No Sex and Gender Information Value Date Recorded Sex Assigned at Not on file Legal Sex Female 1:30 PM EDT Gender Identity Not on file Sexual Orientation Not on file documented as of this encounter Last Filed Vital Signs Vital Sign Reading Time Taken Comments Blood Pressure 177/81 04/11/2025 2:26 PM EDT Pulse 58 04/11/2025 2:26 PM EDT Temperature 36.8 C (98.2 F) 04/11/2025 2:26 PM EDT Respiratory Rate 18 04/11/2025 2:26 PM EDT Oxygen Saturation 98% 04/11/2025 2:26 PM EDT Inhaled Oxygen Concentration - - Weight - - Height - - Body Mass Index - - documented in this encounter Functional Status * Are you deaf or do you have serious difficulty hearing? Answer Date of Assessment Author No 08/04/2022 2:24 PM Josi Berrios APRN.LOOP SEWER * Are you blind or do you have serious difficulty seeing, even when wearing glasses? Answer Date of Assessment Author No 08/04/2022 2:24 PM Josi Berrios APRN.LOOP SEWER * Do you have serious difficulty walking or climbing stairs? Answer Date of Assessment Author No 08/04/2022 2:24 PM Josi Berrios APRN.LOOP SEWER * Do you have difficulty dressing or bathing? Answer Date of Assessment Author No 08/04/2022 2:24 PM Josi Berrios APRN.LOOP SEWER * Because of a physical, mental, or emotional condition, do you have difficulty doing errands alone such as visiting a doctor's office or shopping? Answer Date of Assessment Author No 08/04/2022 2:24 PM Josi Berrios APRN.LOOP SEWER documented as of this encounter Mental Status * Because of a physical, mental, or emotional condition, do you have serious difficulty concentrating, remembering, or making decisions? Answer Entry Date Author No 08/04/2022 2:24 PM Josi Berrios APRN.LOOP SEWER documented in this encounter Plan of Treatment Upcoming Encounters Date Type Department Care Team (Latest Contact Info) Description 04/25/2025 2:00 PM EDT Office Visit [facility] [address] [place] [address] lab 04/25/2025 2:15 PM EDT Infusion Center Hematology/Oncology [address] [place], [place] [address] [address] Aranesp every 2 weeks 05/09/2025 1:15 PM EDT Office Visit [facility] [place] [address] 1 month follow up, labs, B12 & Aranesp 05/09/2025 1:30 PM EDT Visit (SP) Office Hematology/Oncology [facility] [place] [address] Josi Burris APRN.LOOP SEWER [address] [place] [address] 6 week follow up, labs, B12 & Aranesp 05/09/2025 2:00 PM EDT Infusion Center Hematology/Oncology [facility] [place] [address] Aranesp every 2 weeks 05/09/2025 2:15 PM EDT Infusion Center Hematology/Oncology [address] [place] [address] B12 documented as of this encounter Visit Diagnoses [...] 1,000 mcg, INTRAMUSCULAR, ONCE, 1 dose, On Mon04/11/25 at 1430Indications:Megaloblasti c 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 deficiency,Abnormal weight loss,Other systemic lupus erythematosus with other organ involvement (HCC),Thrombocytopenia,Chron ic ITP (idiopathic thrombocytopenia) ([facility]) Given 04/11/2025 2:19 PM EDT 1,000 mcg Arm, Left Darbepoetin Arsalan In Polysorbat 200 mcg injection (ARANESP) 200 mcg, SUBCUTANEOUS, ONCE, 1 dose, On Mon04/11/25 at 1430, Protect from light REFRIGERATEIndications:Anemi a in stage 3b chronic kidney disease (HCC) Given 04/11/2025 2:19 PM EDT 200 mcg Arm, Left documented in this encounter Care Teams Aerial Hurricane Hunter Relationship Specialty Start Date End Date Stephanie Dumont PCP - General 04/20/23 documented as of this encounter
--- OUTSIDE RECORDS SUMMARY | 2025-04-23 11:10 | XMS_ITS | Encounter Summary ---
Author Organization [facility] Address [address] [place] [address] Care Team Providers Care Leather Cleaner Name Role Phone Stephanie Dumont GETTERER Unavailable [phone] Wilfred Polanco MD Primary Care Provider [phone] Stephanie Dumont GETTERER Unavailable [phone] Reason for Visit * Reason Comments Glossitis 3 week follow up Encounter Details Date Type Department Care Team ([facility] Contact Info) Description 04/23/2025 11:10 AM EDT Office Visit [facility] [place] [facility] [address] [facility] [address] [place] [address] Nadia Mercado MD [address] [facility] [address] [place] [address] Acute glossitis (Primary Dx); Thyroid nodule Social History Tobacco Use Types [...] Sign Reading Time Taken Comments Blood Pressure 133/73 04/23/2025 10:59 AM EDT Pulse 59 04/23/2025 10:59 AM EDT Temperature - - Respiratory Rate - - Oxygen Saturation - - Inhaled Oxygen Concentration - - Weight 79.8 kg (176 lb) 04/23/2025 10:59 AM EDT Height 160 cm (5' 3 ) 04/23/2025 10:59 AM EDT Body Mass Index 31.18 04/23/2025 10:59 AM EDT documented in this encounter Progress Notes * Nadia Mercado MD - 04/23/2025 11:10 AM EDT Subjective Patient ID: Andrei Fish is a 74 y.o. female who presents for Glossitis (3 week follow up) F/U glossitis tx with clotrimazole troches. Family History[1] Active Ambulatory Problems Diagnosis Date Noted Chronic ITP (idiopathic thrombocytopenia) ([facility]) 05/26/2016 Disease of thyroid gland 06/28/2022 Essential hypertension 05/13/2021 Family history of breast cancer 04/13/2017 Nocturnal leg cramps 10/05/2017 Obstructive sleep apnea syndrome 05/13/2021 Qualitative platelet defects (HCC) 06/28/2022 Tobacco dependence 06/28/2022 Dry mouth 01/05/2017 Compression syndrome, nerve 06/28/2022 Abnormal weight loss 03/03/2016 Age-related osteoporosis without current pathological fracture 06/06/2023 Leg pain, bilateral 06/06/2023 Left wrist pain 06/06/2023 Obesity (BMI 30-39.9) 06/06/2023 Claudication of both lower extremities 06/08/2023 PAD (peripheral artery disease) 06/08/2023 Hyperkalemia with normal acid-base balance 11/27/2023 Cholesteatoma of left ear 11/14/2023 HL (hearing loss) 06/28/2022 Perforation of left tympanic membrane 06/29/2022 Other forms of systemic lupus erythematosus (HCC) 11/28/2023 Other fatigue 11/28/2023 Weakness of both legs 11/28/2023 Systemic lupus erythematosus, unspecified (HCC) 02/12/2024 Lumbar back pain 02/12/2024 Thyroid nodule 02/26/2024 Coronary artery disease involving [place] coronary artery of [place] heart 02/26/2024 Calcification of aortic valve 02/26/2024 PAH (pulmonary artery hypertension) ([facility]) 03/27/2024 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 deficiency 03/05/2024 Encounter for screening mammogram for malignant neoplasm of breast 04/04/2024 Other chest pain 04/04/2024 Posterior left knee pain 04/04/2024 Pre-diabetes 04/05/2024 Diarrhea 04/24/[address] lung nodules on CT 05/07/2024 Encounter for subsequent annual wellness visit (AWV) in Medicare patient 05/14/2024 Chronic kidney disease, stage 3b ([facility]) 12/25/2024 DARYL (acute kidney injury) 01/06/2025 Lumbar spondylosis 01/15/2025 Abdominal aortic aneurysm (AAA) without rupture 01/21/2025 Resolved Ambulatory Problems Diagnosis Date Noted Lupus 03/03/2016 Ruptured ear drum, left 06/06/2023 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 Elevated glucose level 04/04/2024 Chronic kidney disease, stage 3a ([facility]) 08/15/2024 Family history of cancer 08/15/2024 Degeneration of intervertebral disc of lumbar region with lower extremity pain 01/15/2025 Past Medical History: Diagnosis Date Hypertension Surgical History[2] Allergies[3] Medications Ordered Prior to Encounter[4] Objective Last Recorded Vitals Vitals: 04/23/25 1059 BP: 133/73 Pulse: 59 ENT Physical Exam Oral Cavity/Oropharynx Tongue: normal; Assessment/Plan Diagnoses and all orders for this visit: Acute glossitis Thyroid nodule Glossitis has responded well to tx. F/U as planned after thyroid US in September [1] Family History Problem Relation Name Age of Onset Diabetes Mother Hypertension Mother Heart disease Mother Cancer Father Breast cancer Sister Heart disease Sibling Cancer Sibling [2] Past Surgical History: Procedure Laterality Date APPENDECTOMY BI MAMMO GUIDED LOCALIZATION BREAST LEFT Left 03/28/2017 BI MAMMO GUIDED LOCALIZATION BREAST LEFT 03/28/2017 BREAST BIOPSY Left BREAST LUMPECTOMY Left 07/2015 BREAST SURGERY CHOLECYSTECTOMY COLONOSCOPY 2008 EYE SURGERY FRACTURE SURGERY Left leg HYSTERECTOMY TYMPANOPLASTY Left 02/05/2025 Dr Nuno [3] Allergies Allergen Reactions Vancomycin Other States had burning sensation t/o entire body. (Infectious disease) States medication was given too fast. Itzkuiu-Asgabx-Zetmz Pertussis Rash [4] Current Outpatient Medications on File Prior to Visit Medication Sig Dispense Refill alendronate (Fosamax) 70 MG tablet Take 1 tablet (70 mg) by mouth every 7 (seven) days Take in the morning with a full glass of water, on an empty stomach, and do not take anything else by mouth or lie down for the next 30 min. 12 tablet 1 benzonatate (Tessalon) 100 MG capsule Take 100 mg by mouth every 6 (six) hours if needed ergocalciferol (Vitamin D-2) 1.25 MG (87114 UT) capsule Take 50,000 Units by mouth 1 (one) time perweek Fostamatinib Disodium (Tavalisse) 100 MG tablet Take 100 mg by mouth in the morning and 100 mg before bedtime. hydroCHLOROthiazide (HYDRODiuril) 25 MG tablet Take 25 mg by mouth Daily losartan (Cozaar) 25 MG tablet Take 50 mg by mouth at bedtime metoprolol succinate XL (Toprol-XL) 25 MG 24 hr tablet Take 0.5 tablets (12.5 mg) by mouth Daily Donot crush or chew. (Patient taking differently: Take 12.5 mg by mouth Daily Do not crush or chew.) 45 tablet 1 pilocarpine (Salagen) 5 MG tablet Take 1 tablet by mouth in the morning and 1 tablet in the eveningand 1 tablet before bedtime. (Patient taking differently: Take 1 tablet by mouth in the morning and1 tablet in the evening and 1 tablet before bedtime. JUST NEEDED PER PT.) No current facility-administered medications on file prior to visit. documented in this encounter Plan of Treatment Upcoming Encounters Date Type Department Care Team (Late st Contact Info) Description 10/01/2025 11:10 AM EDT Office Visit [facility] [address] [facility] [address] [place] [address] Nadia Mercado MD [address] [facility] [address] [place] [address] documented as of this encounter Visit Diagnoses Diagnosis Acute glossitis- Primary Thyroid nodule Nontoxic uninodular goiter documented in this encounter Additional Health Concerns Assessment Noted Time PHQ-9 Depression Total Score: 2 05/14/20 24 10:42 AM EST documented as of this encounter Care Teams Leather Cleaner Relationship Specialty Start Date End Date Stephanie Dumont NP [address] [place] [address] PCP - [facility] 10/09/23 12/07/70 Wilfred Polanco MD [address] [place] [address] PCP - General Family Medicine 03/27/25 Stephanie Dumont NP [address] [place] [address] Nurse Practitioner Family Medicine 03/27/25 documented as of this encounter
--- OUTSIDE RECORDS SUMMARY | 2025-04-23 11:59 | XMS_ITS | Encounter Summary ---
Author Organization [facility] tem Address [id number] [address] [place] [address] Care Team Providers Care Fiber Locking Supervisor Name Role Phone Stephanie Dumont APRN-AIRPLANE RENTAL CLERK Primary Care Provider Reason for Visit * Reason Onset Date Comments GENETICS 09/11/2024 CLERICAL Encounter Details Date Type Department Care Team (Late st Contact Info) Description 09/11/2024 Telephone [facility] -[facility] [address] [facility] [address] [place] [id number] Nina Leon, [facility] [address] [facility] [address] [place] [address] GENETICS (CLERICAL) Social History Tobacco [...] on filedocumented in this encounter Care Teams Fiber Locking Supervisor Relationship Specialty Start Date End Date Stephanie Dumont, STEM CUTTER-AIRPLANE RENTAL CLERK PCP - General Nurse Practitioner 05/02/24 documented as of this encounter
--- OUTSIDE RECORDS SUMMARY | 2025-04-23 11:59 | XMS_ITS | Encounter Summary ---
Author Organization [facility] Address [address] [facility] [place] [address] Care Team Providers Care Manager Home Improvement Name Role Phone Stephanie Dumont AGRICULTURAL LENDER Unavailable [phone] Stephanie Dumont AGRICULTURAL LENDER Unavailable Wilfred Polanco MD Primary Care Provider Wilfred Polanco MD Primary Care Provider Stephanie Dumont AGRICULTURAL LENDER Unavailable [phone] Encounter Details Date Type Department Care Team ([facility] Contact Info) Description 12/30/2024 Abstract [facility] [address] [place] [address] Stephanie Dumont NP [address] [place] [address] Social History Tobacco Use Types Packs/Day Years [...] Upcoming Encounters Date Type Department Care Team ([facility] Contact Info) Description 10/01/2025 11:10 AM EDT Office Visit [facility] [place] [facility] [address] [place] [address] [place] [address] Nadia Mercado MD [address] [place] [address] documented as of this encounter Visit Diagnoses Not on filedocumented in this encounter Additional Health Concerns Assessment Noted Time PHQ-9 Depression Total Score: 2 05/14/20 10:42 AM EST documented as of this encounter Care Teams Manager Home Improvement Relationship Specialty Start Date End Date Stephanie Dumont NP [address] [place] [address] PCP - [facility] 10/09/23 12/07/70 Wilfred Polanco MD [address] [place] [address] PCP - General Family Medicine 05/13/24 03/26/25 Wilfred Polanco MD [address] [place] [address] PCP - General Family Medicine 03/27/25 Stephanie Dumont NP Nurse Practitioner Family Medicine 04/09/23 03/26/25 Stephanie Dumont NP [address] [place] [address] Nurse Practitioner Family Medicine 03/27/25 documented as of this encounter
--- OUTSIDE RECORDS SUMMARY | 2025-04-23 11:59 | XMS_ITS | Encounter Summary ---
Author Organization [id number] [address] [place] [address] Care Team Providers Care Saddle Cutter Name Role Phone Stephanie Dumont HOLLOW TILE PARTITION ERECTOR-FINAL INSPECTOR MOVEMENT ASSEMBLY Primary Care Provider Encounter Details Date Type Department Care Team (Late st Contact Info) Description 01/22/2025 [facility]phone [facility] [address] [place] [address] No Pcp, [place] [address] Social History Tobacco Use Types Packs/Day Years [...] encounter Miscellaneous Notes * Telephone Encounter - Catrachitashannan Tyler - 01/22/2025 11:56 AM EDT ADRIA GROVES for the patient about the new patient referral we received from the patients PCP office. Writernotified the patient via that her insurance is OON with no OON benefits. Aircraft Refueller reccomended she reach out to her PCP the referring office to send the referral to a office that is in network. Aircraft Refueller provided Magi Philip office phone number. Informed the patient that she can call here if she has any questions or concerns. Please assist if the patient calls back. Thank you. documented in this encounter Plan of Treatment Not on file documented as of this encounter Visit Diagnoses Not on filedocumented in this encounter Care Teams Saddle Cutter Relationship Specialty Start Date End Date Stephanie Dumont APRN-FINAL INSPECTOR MOVEMENT ASSEMBLY PCP - General Nurse Practitioner 05/02/24 documented as of this encounter
--- OUTSIDE RECORDS SUMMARY | 2025-04-23 11:59 | XMS_ITS | Encounter Summary ---
Author Organization [facility] Address [address] [facility] [place] [address] Care Team Providers Care Landman Name Role Phone Stephanie Dumont COMPOSITION INSTRUCTOR Unavailable [phone] Stephanie Dumont COMPOSITION INSTRUCTOR Unavailable [phone] Wilfred Polanco MD Primary Care Provider Wilfred Polanco MD Primary Care Provider Stephanie Dumont COMPOSITION INSTRUCTOR Unavailable [phone] Encounter Details Date Type Department Care Team ([facility] Contact Info) Description 12/26/2024 Abstract [facility] [address] [place] [address] Stephanie Dumont NP [address] [place] [address] Social History Tobacco Use Types Packs/Day Years [...] Upcoming Encounters Date Type Department Care Team ([facility] Contact Info) Description 10/01/2025 11:10 AM EDT Office Visit [facility] [address] [place] [address] Nadia Mercado MD [address] [place] [address] documented as of this encounter Visit Diagnoses Not on filedocumented in this encounter Additional Health Concerns Assessment Noted Time PHQ-9 Depression Total Score: 2 05/14/20 10:42 AM EST documented as of this encounter Care Teams Landman Relationship Specialty Start Date End Date Stephanie Dumont NP [address] [place] [address] PCP - [facility] 10/09/23 12/07/70 Wilfred Polanco MD [address] [place] [address] PCP - General Family Medicine 05/13/24 03/26/25 Wilfred Polanco MD [address] [place] [address] PCP - General Family Medicine 03/27/25 Stephanie Dumont NP Nurse Practitioner Family Medicine 04/09/23 03/26/25 Stephanie Dumont NP [address] [place] [address] Nurse Practitioner Family Medicine 03/27/25 documented as of this encounter
--- OUTSIDE RECORDS SUMMARY | 2025-04-23 11:59 | XMS_ITS | Encounter Summary ---
Author Organization [facility] Address [address] [facility] [place] [address] Care Team Providers Care Carbon Blocks Press Operator Name Role Phone Stephanie Dumont BRICK OFF BEARER Unavailable [phone] Unallocated, Noms Provider Primary Care Provi gabriela Wilfred Polanco MD Primary Care Provider Wilfred Polanco MD Primary Care Provider Stephanie Dumont BRICK OFF BEARER Unavailable [phone] Wilfred Polanco MD Primary Care Provider Wilfred Polanco MD Primary Care Provider Stephanie Dumont BRICK OFF BEARER Unavailable [phone] Encounter Details Date Type Department Care Team (Late Contact Info) Description 06/08/2023 Orders Only [facility] [address] [place] [address] Stephanie Dumont BRICK OFF BEARER [address] [place] [address] Social History Tobacco Use Types Packs/Day Years [...] Department Care Team (Late Contact Info) Description 10/01/2025 11:10 AM EDT Office Visit [facility] [address] [facility] [address] [place] [address] Nadia Mercado MD [address] [facility] [address] [place] [address] documented as of this encounter Visit Diagnoses Not on filedocumented in this encounter Care Teams Carbon Blocks Press Operator Relationship Specialty Start Date End Date Unallocated, Cayla Miller MD [address] [facility] [place] [place] [address] PCP - General Family Medicine 06/07/23 07/16/23 Wilfred Polanco MD [address] [place] [address] PCP - General Family Medicine 07/17/23 08/16/23 Wilfred Polanco MD [address] [place] [place] [address] PCP - General Family Medicine 08/17/23 04/23/24 Stephanie Dumont NP [address] [place] [address] PCP - [facility] 10/09/23 12/07/70 Wilfred Polanco MD [address] [place] [address] PCP - General Family Medicine 05/13/24 03/26/25 Wilfred Polanco MD [address] [place] [address] PCP - General Family Medicine 03/27/25 Stephanie Dumont NP Nurse Practitioner Family Medicine 04/09/23 03/26/25 Stephanie Dumont NP [address] [place] [address] Nurse Practitioner Family Medicine 03/27/25 documented as of this encounter
--- OUTSIDE RECORDS SUMMARY | 2025-04-23 11:59 | XMS_ITS | Encounter Summary ---
Author Organization [facility] Address [address] [place] [address] Care Team Providers Care Retail Asset Protection Specialist Name Role Phone Stephanie Dumont Primary Care Provider Unavailabl e Source Comments In the event this information is protected by the Federal Confidentiality of Alcohol and Drug AbusePatient Records regulations: The Federal rules restrict any use of the information to criminally investigate or prosecute any alcohol or drug abuse patient.[facility] Reason for Visit * Reason Onset Date Comments Refill Request 11/05/2024 Encounter Details Date Type Department Care Team (Late st Contact Info) Description 11/05/2024 Refill [facility] [address] [place] [address] Rinku Dupree MD [address] [place] [address] [place] [address] Refill Request Social History Tobacco Use Types [...] is lower risk 9 12/15/2022 Data from: https://www.[facility]/. Last address used for calculation [...] No 08/04/2022 2:24 PM EST Jayden Connelly APRN.BRICK AND TILE MAKING MACHINE OPERATOR * Are you blind or [...] No 08/04/2022 2:24 PM EST Jayden Connelly APRN.BRICK AND TILE MAKING MACHINE OPERATOR * Because of a physical, [...] Description 04/25/2025 2:00 PM EDT Office Visit [facility] [address] [place] [address] lab 04/25/2025 2:15 PM EDT Infusion Center Hematology/Oncology [address] [place] [address] Aranesp every 2 weeks 05/09/2025 1:15 PM EDT Office Visit [facility] [address] [place] [address] 1 month follow up, labs, B12 & Aranesp 05/09/2025 1:30 PM EDT Visit (SP) Office Hematology/Oncology [address] [place] [address] Jayden Connelly, MIRIAM.BRICK AND TILE MAKING MACHINE OPERATOR [address] [place] [address] 6 week follow up, labs, B12 & Aranesp 05/09/2025 2:00 PM EDT Infusion Center Hematology/Oncology [address] [facility] [address] [place] [address] Aranesp every 2 weeks 05/09/2025 2:15 PM EDT Infusion Center Hematology/Oncology [address] [place] [address] B12 documented as of this encounter Visit Diagnoses Not on filedocumented in this encounter Care Teams Retail Asset Protection Specialist Relationship Specialty Start Date End Date Stephanie Dumont PCP - General 04/20/23 documented as of this encounter
--- OUTSIDE RECORDS SUMMARY | 2025-04-23 11:59 | XMS_ITS | Encounter Summary ---
Author Organization [facility] Address [address] [facility] [place] [address] Care Team Providers Care Bee Keeper Name Role Phone Stephanie Dumont MECHANICAL SERVICE TECHNICIAN Unavailable [phone] Wilfred Polanco MD Primary Care Provider [phone] Stephanie Dumont MECHANICAL SERVICE TECHNICIAN Unavailable [phone] Encounter Details Date Type Department Care Team (Late Contact Info) Description 04/23/2025 Bamboo flowsheet [facility] [place] [facility] [address] [facility] [address] [place] [address] Nadia Mercado MD [address] [facility] [address] [place], [place] [phone] Social History Tobacco Use Types Packs/Day Years [...] Upcoming Encounters Date Type Department Care Team ([facility] Contact Info) Description 10/01/2025 11:10 AM EDT Office Visit [facility] [place] [facility] [address] [facility] [address] [place] [address] Nadia Mercado MD [address] [facility] [address] [place], [place] [address] documented as of this encounter Visit Diagnoses Not on filedocumented in this encounter Additional Health Concerns Assessment Noted Time PHQ-9 Depression Total Score: 2 05/14/20 24 10:42 AM EST documented as of this encounter Care Teams Bee Keeper Relationship Specialty Start Date End Date Stephanie Dumont NP [address] [place] [address] PCP - [facility] 10/09/23 12/07/70 Wilfred Polanco MD [address] [place] [address] PCP - General Family Medicine 03/27/25 Stephanie Dumont NP [address] [place] [address] Nurse Practitioner Family Medicine 03/27/25 documented as of this encounter
--- OUTSIDE RECORDS SUMMARY | 2025-04-23 11:59 | XMS_ITS | Encounter Summary ---
Author Organization [facility] Address [address] [facility] [place] [address] Care Team Providers Care Agricultural Equipment Test Engineer Name Role Phone Stephanie Dumont GYMNASTIC TEACHER Unavailable [phone] Stephanie Dumont GYMNASTIC TEACHER Unavailable [phone] Wilfred Polanco MD Primary Care Provider Wilfred Polanco MD Primary Care Provider Stephanie Dumont GYMNASTIC TEACHER Unavailable [phone] Encounter Details Date Type Department Care Team ([facility] Contact Info) Description 12/26/2024 Abstract [facility] [facility] [address] [place] [address] Stephanie Dumont NP [address] [place] [address] Social History Tobacco Use Types Packs/Day Years [...] Upcoming Encounters Date Type Department Care Team ([facility] Contact Info) Description 10/01/2025 11:10 AM EDT Office Visit [facility] [address] [place] [address] Nadia Mercado MD [address] [place] [address] documented as of this encounter Visit Diagnoses Not on filedocumented in this encounter Additional Health Concerns Assessment Noted Time PHQ-9 Depression Total Score: 2 05/14/20 10:42 AM EST documented as of this encounter Care Teams Agricultural Equipment Test Engineer Relationship Specialty Start Date End Date Stephanie Dumont NP [address] [place] [address] PCP - [facility] 10/09/23 12/07/70 Wilfred Polanco MD [address] [place] [address] PCP - General Family Medicine 05/13/24 03/26/25 Wilfred Polanco MD [address] [place] [address] PCP - General Family Medicine 03/27/25 Stephanie Dumont NP Nurse Practitioner Family Medicine 04/09/23 03/26/25 Stephanie Dumont NP [address] [place] [address] Nurse Practitioner Family Medicine 03/27/25 documented as of this encounter
--- OUTSIDE RECORDS SUMMARY | 2025-04-23 11:59 | XMS_ITS | Encounter Summary ---
Author Organization [facility] tem Address [id number] [address] [place] [address] Care Team Providers Care Job Specification Writer Name Role Phone Stephanie Dumont APRN-SECONDARY HISTORY TEACHER Primary Care Provider Encounter Details Date Type Department Care Team (Late st Contact Info) Description 12/21/2022 Orders Only [facility] - ENT [address] [place] [address], [address] [place] [address] [place] [address] [place] [address] [address] [place] [address] Social History Tobacco Use Types Packs/Day Years [...] on filedocumented in this encounter Care Teams Job Specification Writer Relationship Specialty Start Date End Date Stephanie Dumont, TIRE MOLDER-SECONDARY HISTORY TEACHER PCP - General Nurse Practitioner 05/02/24 documented as of this encounter
--- OUTSIDE RECORDS SUMMARY | 2025-04-23 11:59 | XMS_ITS | Clinical Summary ---
Author Organization [facility] Address [address] [place], [place] [id number] Care Team Providers Care Permaculture Designer Name Role Phone Stephanie Dumont Primary Care Provider Unavailaudrey e Allergies Active Allergy Reactions Criticality Noted Date Comments Diphtheria,Pertussis (Acellular),Tetanus Vaccine Rash Low 06/06/2023 Tetanus Vaccines And Toxoid Unknown 03/03/20 16 Vancomycin Unknown 03/03/2016 Burning sensation Medications ergocalciferol 50,000 unit capsule (VITAMIN D2, DRISDOL) Take 1 capsule by mouth one time a week. 3 Active alendronate (FOSAMAX) 70 mg tablet PLEASE SEE ATTACHED FOR DETAILED DIRECTIONS 3 Active metoprolol succinate ER (TOPROL XL) 25 [...] 90 tablet 3 03/14/2025 2:26 PM EDT 5 Active hydroCHLOROthiaz kristian 25 mg tabletIndication s:Essential hypertension,Chr onic ITP (idiopathic thrombocytopenia ) (HCC),Obstructiv e sleep apnea syndrome TAKE 1 TABLET BY MOUTH EVERY DAY 90 tablet 3 5 Active Active Problems Problem Noted Date [...] Encounters Date Type Department Care Team Description 04/22/2025 Orders Only Hematology/Oncology [address] [place] [address] Rinku Dupree MD 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) (Primary Dx) 04/21/2025 Orders Only Hematology/Oncology [address] [place] [address] Li Frank, SEEING EYE DOG TRAINER.ENDBANDER 04/21/2025 Orders Only Hematology/Oncology [address] [place] [address] Josi Burris, SEEING EYE DOG TRAINER.ENDBANDER 04/21/2025 Orders Only Hematology/Oncology [address] [place] [address] Ana Hernandez PA-C 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) (Primary Dx) 04/11/2025 2:00 PM [facility] Hematology/Oncology [address] [place] [address] 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) (Primary Dx); 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 deficiency; Abnormal weight loss; Other systemic lupus erythematosus with other organ involvement (HCC); Thrombocytopenia; Chronic ITP (idiopathic thrombocytopenia) (HCC) 04/11/2025 Orders Only Hematology/Oncology [address] [place] [address] Ana Hernandez PA-C 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) (Primary Dx) 03/28/2025 2:30 PM EDT Infusion Center Hematology/Oncology [address] [place] [address] [place] [address] 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) (Primary Dx) 03/28/2025 2:00 PM EDT Visit (SP) Office Hematology/Oncology [address] [place] [address] [place] [address] Josi Burris APRN.ENDBANDER 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 deficiency (Primary Dx); Thrombocytopenia; Chronic ITP (idiopathic thrombocytopenia) (HCC); 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); Essential hypertension; Obstructive sleep apnea syndrome; Hypertension, unspecified type; Hyperglycemia 03/28/2025 Travel 03/14/2025 2:30 PM EDT Infusion Center Hematology/Oncology [address] [place] [address] [place] [address] 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 deficiency (Primary Dx); Abnormal weight loss; Other systemic lupus erythematosus with other organ involvement (HCC); Thrombocytopenia; Chronic ITP (idiopathic thrombocytopenia) (HCC); 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) 03/04/2025 Orders Only Hematology/Oncology [address] [place] [address] [place] [address] Josi Burris APRN.ENDBANDER 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) (Primary Dx) 02/14/2025 3:00 PM EDT Infusion Center Hematology/Oncology [address] [place] [address] [place] [address] 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 deficiency (Primary Dx); Abnormal weight loss; Other systemic lupus erythematosus with other organ involvement (HCC); Thrombocytopenia; Chronic ITP (idiopathic thrombocytopenia) (HCC); 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) 02/14/2025 2:30 PM EDT Visit (SP) Office Hematology/Oncology [address] [place] [address] [place] [address] Josi Burris APRN.ENDBANDER 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 deficiency (Primary Dx); 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); Thrombocytopenia; Chronic ITP (idiopathic thrombocytopenia) (HCC); Essential hypertension; Obstructive sleep apnea syndrome; Abdominal aortic aneurysm (AAA) without rupture, unspecified part 02/14/2025 Travel 01/31/2025 2:45 PM EDT Infusion Center Hematology/Oncology [address] [facility] [address] 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) (Primary Dx) 01/28/2025 Telephone Hematology/Oncology [address] [facility] [address] Desirae Pimentel, collar packer Orders from Last 3 Months Immunizations Immunization Administration Dates Next Due COVID-19 original vaccine, f ull dose, monovalent (MODERNA) 10/17/2020,09/19/2020 influenza (HD-IIV3) vaccine, age 65+ yr, high dose, trivalent, PF (FLUZONE HIGH-DOSE) 04/02/2024,04/01/2019,03/23/2018,04/08 influenza (HD-IIV4) vaccine, age 65+ yr, high [...] is lower risk 9 12/15/2022 Data from: https://www.neighborhoodatlas.medicine.[facility].edu/. Last address used for calculation [address] [...] EDT Inhaled Oxygen Concentration - - Weight 79.2 kg (174 lb 9.7 oz) 03/28/2025 2:08 P M EDT Height 158.8 cm (5' 2.52 ) 03/28/2025 2:08 PM ED T Body Mass Index 31.41 03/28/2025 2:08 PM EDT Plan of Treatment Upcoming Encounters Date Type Department Care Team (Latest Contact Info) Description 04/25/2025 2:00 PM EDT Office Visit [facility] Laboratory [address] [facility] [place] [address] lab 04/25/2025 2:15 PM EDT Infusion Center Hematology/Oncology [place] [place] [address] Aranesp every 2 weeks 05/09/2025 1:15 PM EDT Office Visit [facility] Laboratory [address] [place] [address] [place] [address] 1 month follow up, labs, B12 & Aranesp 05/09/2025 1:30 PM EDT Visit (SP) Office Hematology/Oncology [address] [place] [address] Josi Burris, SEEING EYE DOG TRAINER.ENDBANDER [address] [place] [address] 6 week follow up, labs, B12 & Aranesp 05/09/2025 2:00 PM EDT Infusion Center Hematology/Oncology [facility] [place] [address] Aranesp every 2 weeks 05/09/2025 2:15 PM EDT Infusion Center Hematology/Oncology [place] [address] B12 Health Maintenance Due Date Last Done Comments [...] Annual We llness Visit 07/10/2024 Covid-19 Vaccine (5 - 2024-2 6 season) 2025 02/05/2022, 06/16/2021, 10/17/2020, Additional history exists Influenza Vaccine (#1) 2025 , 03/25/2023, 04/20/2022, Additional history exists Mammogram Screening 04/17/2025 04/17/2024, 04/17/2024, 04/17/2024, Additional history exists Serum Creatinine 03/14/2026 03/14/2025, 02/2025, 01/20/2025, Additional history exists Hemoglobin/Hematocrit 04/11/2026 04/11/2025 , 03/28/2025, 03/14/2025, Additional history exists Diabetes Screening 03/14/2028 03/14/2025, 0 02/14/2025, 01/20/2025, Additional history exists Pneumococcal Vaccine: 50+ Completed 2018, 03/23/2018, 09/06/2016 Hepatitis C Screening Completed 10/31/2019 , 07/24/2019, 08/31/2017 Procedures Procedure Name Priority Date/Time Associated Diagnosis Comments CBC + DIFF Routine 04/11/2025 1:40 PM EDT Stage 3b chronic kidney disease (HCC) 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) CBC + DIFF Routine 03/28/2025 1:34 PM EDT Stage 3b chronic kidney disease (HCC) 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) FOLATE SERUM Routine 03/14/2025 2:02 PM EDT Hyperglycemia Chronic ITP (idiopathic thrombocytopenia) (HCC) 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 deficiency Obstructive sleep apnea syndrome VITAMIN B12 BLOOD Routine 03/14/2025 2:0 2 PM EDT Hyperglycemia Chronic ITP (idiopathic thrombocytopenia) (HCC) 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 deficiency Obstructive sleep apnea syndrome FERRITIN BLD Routine 03/14/2025 2:02 PM EDT Hyperglycemia Chronic ITP (idiopathic thrombocytopenia) (HCC) 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 deficiency Obstructive sleep apnea syndrome IRON + TIBC Routine 03/14/2025 2:02 PM EDT Hyperglycemia Chronic ITP (idiopathic thrombocytopenia) (HCC) 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 deficiency Obstructive sleep apnea syndrome COMPREHENSIVE METABOLIC PANEL Routine 03/14/2025 2:02 PM EDT Hyperglycemia Chronic ITP (idiopathic thrombocytopenia) (HCC) 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 deficiency Obstructive sleep apnea syndrome CBC + DIFF Routine 03/14/2025 2:02 PM EDT Hyperglycemia Chronic ITP (idiopathic thrombocytopenia) (HCC) 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 deficiency Obstructive sleep apnea syndrome FOLATE SERUM Routine 02/14/2025 2:01 PM EDT Hyperglycemia Chronic ITP (idiopathic thrombocytopenia) (HCC) 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 deficiency Obstructive sleep apnea syndrome VITAMIN B12 BLOOD Routine 02/14/2025 2:0 1 PM EDT Hyperglycemia Chronic ITP (idiopathic thrombocytopenia) (HCC) 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 deficiency Obstructive sleep apnea syndrome FERRITIN BLD Routine 02/14/2025 2:01 PM EDT Hyperglycemia Chronic ITP (idiopathic thrombocytopenia) (HCC) 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 deficiency Obstructive sleep apnea syndrome IRON + TIBC Routine 02/14/2025 2:01 PM EDT Hyperglycemia Chronic ITP (idiopathic thrombocytopenia) (HCC) 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 deficiency Obstructive sleep apnea syndrome COMPREHENSIVE METABOLIC PANEL Routine 02/14/2025 2:01 PM EDT Hyperglycemia Chronic ITP (idiopathic thrombocytopenia) (HCC) 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 deficiency Obstructive sleep apnea syndrome CBC + DIFF Routine 02/14/2025 2:01 PM EDT Hyperglycemia Chronic ITP (idiopathic thrombocytopenia) (HCC) 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 deficiency Obstructive sleep apnea syndrome CBC + DIFF Routine 01/31/2025 2:17 PM EDT 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) *HEP C AB Routine 10/31/2019 10:10 AM EDT Thrombocytopenia (HCC) LIPID PANEL, FASTING Fax 03/30/2017 2:00 PM EDT from Last 3 Months or Most Recently Relevant to Health Maintenance Results * (ABNORMAL) COMPLETE BLOOD COUNT AND DIFFERENTIAL (04/11/2025 1:40 PM EDT) Only the most recent of5 resultswithin the time period is included. WBC 5.64 3.70 - 11.00 k/uL 04/11/2025 1:49 PM EDT [facility] RBC 3.43(L) 3.90 - 5.20 m/uL 04/11/2025 1:49 PM EDT [facility] Hemoglobin 10.6(L) 11.5 - 15.5 g/dL 04/11/2025 1:49 PM EDT [facility] Hematocrit 33.5(L) 36.0 - 46.0 % 04/11/2025 1:49 PM EDT [facility] MCV 97.7 80.0 - 100.0 fL 04/11/2025 1:49 PM EDT [facility] MCH 30.9 26.0 - 34.0 pg 04/11/2025 1:49 PM EDT [facility] MCHC 31.6 30.5 - 36.0 g/dL 04/11/2025 1:49 PM EDT [facility] RDW-CV 14.4 11.5 - 15.0 % 04/11/2025 1:49 PM EDT [facility] Platelet Count 168 150 - 400 k/uL 04/11/2025 1:49 PM EDT [facility] MPV 9.1 9.0 - 12.7 fL 04/11/2025 1:49 PM EDT [facility] Neutrophils % 46.7 % 04/11/2025 1:49 PM EDT [facility] Abs Neut 2.64 1.45 - 7.50 k/uL 04/11/2025 1:49 PM EDT [facility] Lymphocytes % 46.3 % 04/11/2025 1:49 PM EDT [facility] Abs Lymph 2.61 1.00 - 4.00 k/uL 04/11/2025 1:49 PM EDT [facility] Monocytes % 5.3 % 04/11/2025 1:49 PM EDT [facility] Abs Riley 0.30 <0.87 k/uL 04/11/2025 1:49 PM EDT [facility] Eosinophils % 0.9 % 04/11/2025 1:49 PM EDT [facility] Abs Eosin 0.05 <0.46 k/uL 04/11/2025 1:49 PM EDT [facility] Basophils % 0.4 % 04/11/2025 1:49 PM EDT [facility] Abs Baso <0.03 <0.11 k/uL 04/11/2025 1:49 PM EDT [facility] Immature Granulocytes % 0.4 % 04/11/2025 1:49 PM EDT [facility] Abs Immature Gran <0.03 <0.10 k/uL 04/11/2025 1:49 PM EDT [facility] NRBC 0.0 /100 WBC 04/11/2025 1:49 PM EDT [facility] Absolute nRBC <0.01 <0.01 k/uL 04/11/2025 1:49 PM EDT [facility] Diff Type Auto 04/11/2025 1:49 PM EDT [facility] Blood BLOOD SPECIMEN / Unknown Venipuncture / Unknown 04/11/2025 1:40 PM EDT 04/11/2025 1:41 PM EDT us Rinku Dupree MD LABORATORY Final Result [facility] [address] [place] [address] * VITAMIN B12 (03/14/2025 2:02 PM EDT) Only the most recent of2 resultswithin the time period is included. Vitamin B12 766 232 - 1,245 pg/mL 03/15/2025 8:42 AM EDT [facility] Blood BLOOD SPECIMEN / Unknown Venipuncture / Unknown 03/14/2025 2:02 PM EDT 03/14/2025 2:02 PM EDT us Rinku Dupree MD LABORATORY Final Result [facility] [address] [address], [place] * IRON AND TIBC (03/14/2025 2:02 PM EDT) Only the most recent of2 resultswithin the time period is included. Iron 51 41 - 186 ug/dL 03/15/2025 8:25 AM EDT [facility] TIBC 335 232 - 386 ug/dL 03/15/2025 8:25 AM EDT [facility] Transferrin Saturation 15.2 15.0 - 57.0 % 03/15/2025 8:25 AM EDT [facility] Blood BLOOD SPECIMEN / Unknown Venipuncture / Unknown 03/14/2025 2:02 PM EDT 03/14/2025 2:02 PM EDT us Rinku Dupree MD LABORATORY Final Result [facility] [address] [place] [address], [place] * FOLATE, SERUM (03/14/2025 2:02 PM EDT) Only the most recent of2 resultswithin the time period is included. Folate 5.7 >4.7 ng/mL 03/15/2025 8:42 AM EDT [facility] Blood BLOOD SPECIMEN / Unknown Venipuncture / Unknown 03/14/2025 2:02 PM EDT 03/14/2025 2:02 PM EDT us Rinku Dupree MD LABORATORY Final Result Performing Organization Address City/[facility]/ZIP Co de Phone Number [facility] [address] [place] [id number], [place] * FERRITIN (03/14/2025 2:02 PM EDT) Only the most recent of2 resultswithin the time period is included. Ferritin 96.2 14.7 - 205.1 ng/mL 03/15/2025 8:42 AM EDT [facility] Blood BLOOD SPECIMEN / Unknown Venipuncture / Unknown 03/14/2025 2:02 PM EDT 03/14/2025 2:02 PM EDT us Rinku Dupree MD LABORATORY Final Result [facility] [address] [facility] [address] [place] [id number], * (ABNORMAL) COMPREHENSIVE METABOLIC PANEL (03/14/2025 2:02 PM EDT) Only the most recent of2 resultswithin the time period is included. Pathologist [facility] Protein, Total 7.3 6.3 - 8.0 g/dL 03/15/2025 10:28 AM EDT [facility] Albumin 3.7(L) 3.9 - 4.9 g/dL 03/15/2025 10:28 AM EDT [facility] Calcium, Total 9.3 8.5 - 10.2 mg/dL 03/15/2025 10:28 AM EDT [facility] Bilirubin, Total 0.4 0.2 - 1.3 mg/dL 03/15/2025 10:28 AM EDT [facility] Alkaline Phosphatase 83 34 - 123 U/L 03/15/2025 10:28 AM EDT [facility] AST 28 13 - 35 U/L 03/15/2025 10:28 AM EDT [facility] ALT 16 7 - 38 U/L 03/15/2025 10:28 AM EDT [facility] Glucose 88 74 - 99 mg/dL 03/15/2025 10:28 AM EDT [facility] Comment: The [place] Diabetes Association (ADA) provides guidance for cutoff [...] Standards of Medical Care in Diabetes 2016, [place] [employer]. Diabetes Care. 2016.39(Suppl 1). BUN 29(H) 7 - 21 mg/dL 03/15/2025 10:28 AM EDT [facility] Creatinine 1.19(H) 0.58 - 0.96 mg/dL 03/15/2025 10:28 AM EDT [facility] Sodium 138 136 - 144 mmol/L 03/15/2025 10:28 AM EDT [facility] Potassium 5.4(H) 3.7 - 5.1 mmol/L 03/15/2025 10:28 AM EDT [facility] Chloride 104 98 - 107 mmol/L 03/15/2025 10:28 AM EDT [facility] CO2 24 22 - 30 mmol/L 03/15/2025 10:28 AM EDT [facility] Anion Gap 10 8 - 15 mmol/L 03/15/2025 10:28 AM EDT [facility] Estimated Glomerular Filtration Rate 48(L) >=60 mL/min/1. 73m 03/15/2025 10:28 AM EDT [facility] Comment:Estimated Glomerular Filtration Rate (eGFR) [...] BLOOD SPECIMEN / Unknown Venipuncture / Unknown 03/14/2025 2:02 PM EDT 03/14/2025 2:02 PM EDT Rinku Dupree MD LABORATORY Final Result [facility] [address] [address], * (ABNORMAL) HEP REMOTE PANEL BL (10/31/2019 10:10 AM EDT) Hep B Core Ab, Total Negative Negative 10/31/2019 6:02 PM EDT [facility] Hep C Antibody IA Negative Negative 10/31/2019 6:03 PM EDT [facility] HBsAg Negative Negative 10/31/2019 6:02 PM EDT [facility] Hep B Surface Ab, Qual Positive(A) Negative 10/31/2019 6:03 PM EDT [facility] Comment: These results are consistent with previous exposure and/or immunity to the hepatitis B virus antigen. Blood specimen (specimen) BLOOD SPECIMEN / Unknown 10/31/2019 10:10 AM EDT 10/31/2019 10:12 AM EDT Rinku Dupree MD LABORATORY Final Result Performing Organization Address [facility]/ZIP Co de Phone Number [facility] [address] [place] [address] [facility] [address] [place] [address] * (ABNORMAL) LIPID PANEL BASIC (03/30/2017 2:00 PM EDT) Triglyceride 118 30 - 149 mg/dL 03/31/2017 8:48 AM EDT [facility] Cholesterol, Total 171 100 - 199 mg/dL 03/31/2017 8:48 AM EDT [facility] HDL Cholesterol 34(L) >55 mg/dL 7 8:48 AM EDT [facility] VLDL Cholesterol 24 6 - 40 mg/dL 03/31/2017 8:48 AM EDT [facility] LDL Cholesterol, Calculated 113 60 - 129 mg/dL 03/31/2017 8:48 AM EDT [facility] Fasting Time Unknown hrs 03/31/2017 5:26 AM EDT [facility] TC:HDL Ratio 5.03(H) 1.00 - 5.00 03/31/2017 8:48 AM EDT [facility] LDL:HDL Ratio 3.32 0.50 - 3.55 03/31/2017 8:48 AM EDT [facility] Non HDL Cholesterol 137 90 - 159 mg/dL 03/31/2017 8:48 AM EDT [facility] 03/30/2017 2:00 PM EDT 03/30/2017 11:00 PM EDT us [facility] Provider LABORATORY Final Result [facility] [address] [place] [address] from Last 3 Months or Most Recently Relevant to Health Maintenance Insurance [facility] [employer] HMO Care Teams Permaculture Designer Relationship Specialty Start Date End Date Stephanie Dumont PCP - General 04/20/23
--- OUTSIDE RECORDS SUMMARY | 2025-04-23 11:59 | XMS_ITS | Encounter Summary ---
Author Organization [facility] Address [address] [facility] [place] [address] Care Team Providers Care Head Of Cytogenetics Name Role Phone Stephanie uDmont REHABILITATION SERVICES DIRECTOR Unavailable [phone] Unallocated, Noms Provider Primary Care Provi gabriela Wilfred Polanco MD Primary Care Provider Wilfred Polanco MD Primary Care Provider Stephanie Dumont REHABILITATION SERVICES DIRECTOR Unavailable [phone] Wilfred Polanco MD Primary Care Provider Wilfred Polanco MD Primary Care Provider Stephanie Dumont REHABILITATION SERVICES DIRECTOR Unavailable [phone] Encounter Details Date Type Department Care Team (Late st Contact Info) Description 07/09/2023 Abstract [facility] [address] [place] [place] [address] Stephanie Dumont REHABILITATION SERVICES DIRECTOR [address] [place] [address] Social History Tobacco Use Types Packs/Day Years [...] Description 10/01/2025 11:10 AM EDT Office Visit [facility] [address] [place] [address] Nadia Mercado MD [address] [place] [address] documented as of this encounter Visit Diagnoses Not on filedocumented in this encounter Care Teams Head Of Cytogenetics Relationship Specialty Start Date End Date Unallocated, Israel Miller MD [address] [place] [address] PCP - General Family Medicine 06/07/23 07/16/23 Wilfred Polanco MD [address] [place] [address] PCP - General Family Medicine 07/17/23 08/16/23 Wilfred Polanco MD [address] [place] [address] PCP - General Family Medicine 08/17/23 04/23/24 Stephanie Dumont NP [address] [place] [phone] PCP - [facility] 10/09/23 12/07/70 Wilfred Polanco MD [address] [place] [address] PCP - General Family Medicine 05/13/24 03/26/25 Wilfred Polanco MD [address] [place] [address] PCP - General Family Medicine 03/27/25 Stephanie Dumont NP Nurse Practitioner Family Medicine 04/09/23 03/26/25 Stephanie Dumont NP [address] [place] [address] Nurse Practitioner Family Medicine 03/27/25 documented as of this encounter
--- OUTSIDE RECORDS SUMMARY | 2025-04-23 11:59 | XMS_ITS | Encounter Summary ---
Author Organization [facility] Address [address] [facility] [place] [address] Care Team Providers Care Warp Hanger Name Role Phone Stephanie Dumont STOCK FITTER Unavailable [phone] Stephanie Dumont STOCK FITTER Unavailable [phone] Wilfred Polanco MD Primary Care Provider Wilfred oPlanco MD Primary Care Provider Stephanie Dumont STOCK FITTER Unavailable [phone] Encounter Details Date Type Department Care Team ([facility] Contact Info) Description 12/26/2024 Abstract [facility] [place] [facility] [address] [place] [address] Stephanie Dumont NP [address] [place] [address] Social History Tobacco Use Types Packs/Day Years [...] Encounters Date Type Department Care Team ([facility] Contact Info) Description 10/01/2025 11:10 AM EDT Office Visit [facility] [address] [place] [address] Nadia Mercado MD [address] [place] [address] documented as of this encounter Visit Diagnoses Not on filedocumented in this encounter Additional Health Concerns Assessment Noted Time PHQ-9 Depression Total Score: 2 05/14/20 10:42 AM EST documented as of this encounter Care Teams Warp Hanger Relationship Specialty Start Date End Date Stephanie Dumont NP [address] [place] [address] PCP - [facility] 10/09/23 12/07/70 Wilfred Polanco MD [address] [place] [phone] PCP - General Family Medicine 05/13/24 03/26/25 Wilfred Polanco MD [address] [place] [address] PCP - General Family Medicine 03/27/25 Stephanie Dumont NP Nurse Practitioner Family Medicine 04/09/23 03/26/25 Stephanie Dumont NP [address] [place] [address] Nurse Practitioner Family Medicine 03/27/25 documented as of this encounter
--- OUTSIDE RECORDS SUMMARY | 2025-04-23 11:59 | XMS_ITS | Encounter Summary ---
Author Organization [facility] Address [address] [place] [address] Phone Care Team Providers Care Option Trader Name Role Phone Rinku Dupree MD Unavailable [phone] Stephanie Dumont APRN-ICE SKATER Primary Care Provider Encounter Details Date Type Department Care Team (Late st Contact Info) Description 11/27/2024 Scanned Document [facility] [address] [place] [phone] Laverne Mendoza, AUD, CCC-A [address] [place] [address] Social History Tobacco Use Types Packs/Day Years [...] documented as of this encounter Care Teams Option Trader Relationship Specialty Start Date End Date Stephanie Dumont, PUBLIC SAF[employer]Y POLICE-ICE SKATER [address] [place] [address] PCP - General 11/29/24 Rinku Dupree MD [address] [place] [address] Referring Physician Hematology and Oncology 11/29/24 documented as of this encounter
--- OUTSIDE RECORDS SUMMARY | 2025-04-23 11:59 | XMS_ITS | Clinical Summary ---
Author Organization [facility] Address [address] [place] [address] Phone Care Team Providers Care Vehicle Trimmer Name Role Phone Rinku Dupree MD Unavailable Stephanie Dumont APRN-NIP WRAPPER Primary Care Provider Allergies Active Allergy Reactions Criticality Noted Date Comments Diphtheria,Pertussis (Acellu lar),Tetanus Vaccine Rash Low 06/06/2023 Vancomycin Other 11/14/2023 Flushing Medications ergocalciferol (Vitamin D-2) 1.25 MG (68632 UT) capsule Take 1 capsule (1.25 mg) [...] continue until follow up 7.5 mL Active metoprolol succinate XL (Toprol-XL) 25 mg 24 hr tablet Take 0.5 tablets (12.5 mg) by mouth once daily. Do not crush or chew. Active pilocarpine (Salagen) 5 mg tablet Take 1 tablet (5 mg) by mouth 3 times a day. Active ibuprofen 200 mg tabletIndicatio ns:Cholesteatom a of left ear Take 2 tablets (400 mg) by mouth every 6 hours if needed for moderate pain (4 - 6) for up to 10 days. 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 [place] [address] [place] [address] Fran Mahoney MD Kelly, Samuel, CAA 02/05/2025 10:45 AM EDT - 02/05/2025 2:15 PM EDT Surgery [facility] OR [address] [phone] Susanna Wright MD Left Side Transcanal Tympanoplasty; Ossiculoplasty; Cartilage Graft [32464 (CPT ) +1 more] 02/05/2025 8:30 AM EDT - 02/05/2025 4:13 PM EDT Hospital Encounter 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 Discharge Disposition: Home 02/05/2025 Travel from Last 3 Months Social History [...] Patient Health Questionnaire-2 Score 0 11/26/2024 Comments No Sex and Gender Information Value Date Recorded Sex Assigned at Not on file Legal Sex Female 11:13 AM EDT Gender Identity Not on file Sexual Orientation Not on file Last Filed Vital Signs Vital Sign Reading Time Taken Comments Blood Pressure 148/69 02/05/2025 3:51 PM EDT Pulse 69 02/05/2025 3:51 PM EDT Temperature 35.7 C (96.3 F) 02/05/2025 3:51 PM EDT Respiratory Rate 15 02/05/2025 3:51 PM EDT Oxygen Saturation 95% 02/05/2025 3:51 PM EDT Inhaled Oxygen Concentration - - Weight 80.2 kg (176 lb 12.9 oz) 025 10:35 AM EDT Height 160 cm (5' 3 ) 02/05/2025 10:35 AM EDT Body Mass Index 31.32 02/05/2025 10:35 AM EDT Plan of Treatment Health Maintenance Due Date Last Done Comments CT Colonography 1950 FIT-DNA (Cologuard) 1950 FIT 1950 Lipid Panel 1950 Medicare Annual Wellness Visit (AWV) 1950 Sigmoidoscopy 1950 MMR Vaccines (1 of 1 - Standard series) 12/07/1951 Hepatitis C Screening 1968 DTaP/Tdap/Td Vaccines (1 - Tdap) 1972 Zoster Vaccines (1 of 2) 2000 RSV High Risk: (Elderly (60+) or Population) (1 - Risk 60-74 years 1-dose series) 2010 Bone Density Scan 12/07/2015 COVID-19 Vaccine ( season) 2025 05/17/2024, 05/26/2023, 02/05/2022, Additional history exists Influenza Vaccine (#1) 2025 , 03/25/2023, 04/20/2022, Additional history exists Mammogram 04/17/2025 04/17/2024, 1003/2024, 04/17/2024 Colonoscopy 07/25/2032 07/25/2022 Colorectal Cancer Screening 07/25/2032 Pneumococcal Vaccine Completed 04/01/2019, 03/23/2018, 09/06/2016 HIB Vaccines Aged Out No longer eligi [...] on patient's age to complete this topic Medical Devices Implanted Type Area Predictive Maintenance Specialist Device Identifier Shelf Expiration Date Model / Serial / Lot Austin, Centered, Total - Sn/A - [id number] Implanted:Qty: 1 on 02/05/2025 by Susanna Wright MD at 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 Special Needs [facility]ato ENT Microscope; NIM from Last 3 Months Results * AK AN ELECTIVE ENDOTRACHEAL AIRWAY (02/05/2025 12:10 PM EDT) Reji Ballard CAA - 02/05/2025 12:10 PM EDT LIDIA Sanabria 02/05/2025 12:15 PM Airway Date/Time: 02/05/2025 12:10 PM Reason: elective Airway not difficult Staffing Performed: CAA Authorized by: Fran Mahoney MD Performed by: LIDIA Sanabria Patient location during procedure: OR Patient Condition Indications for airway management: anesthesia Patient position: sniffing MILS not maintained throughout Planned trial extubation Sedation level: deep Final Airway Details Preoxygenated: yes Final airway type: endotracheal airway Successful airway: ETT Cuffed: yes Successful intubation technique: video laryngoscopy Adjuncts used in placement: intubating stylet Endotracheal tube insertion site: oral Blade: Marty Blade size: #3 ETT size (mm): 7.5 Cormack-Lehane Classification: grade I - full view of glottis Placement verified by: chest auscultation and capnometry Measured from: lips ETT to lips (cm): 22 Number of attempts at approach: 1 Additional Comments atraumatic Fran Mahoney MD ANESTHESIA ORDERABLES Final Res ult from Last 3 Months Insurance [employer] OPT LIFE Member Subscriber Plan / Payer ( fective 2024-Present) Name:Andrei Fish Relation to Subscriber:Self Name:Andrei Fish Payer ID:Not on file Group ID:Not on file Type:Not on file Address: [place] [id number] [employer] LIFE Advance Directives For more information, please contact: [phone] (Available ) * Full Code (Latest Code Status on File) Date Activated Date Inactivated Comments 02/05/2025 10:10 AM Question Answer Comments Plan of Care: Code Status Discussion Completed Decision Maker: Patient Care Teams Vehicle Trimmer Relationship Specialty Start Date End Date Stephanie Dumont, TRANSPORTATION CLERK-NIP WRAPPER [address] [place] [address] PCP - General 11/29/24 Rinku Dupree MD [address] [place] [phone] Referring Physician Hematology and Oncology 11/29/24
--- OUTSIDE RECORDS SUMMARY | 2025-04-23 11:59 | XMS_ITS | Encounter Summary ---
Author Organization [facility] Address [facility] [id number] Care Team Providers Care Attendant Child Activity Name Role Phone Stephanie Dumont Primary Care Provider Unavailabl e Source Comments In the event this information is protected by the Federal Confidentiality of Alcohol and Drug AbusePatient Records regulations: The Federal rules restrict any use of the information to criminally investigate or prosecute any alcohol or drug abuse patient.[facility] Encounter Details Date Type Department Care Team (Latest Contact Info) Description 01/03/2025 H&P External-NonCCF Provider, External, PA-C Do not [...] is lower risk 9 12/15/2022 Data from: https://www.neighborhoodatlas.medicine.[facility].edu/. Last address used for calculation [address] [...] Author No 08/04/2022 2:24 PM Josi Berrios APRN.BANK VAULT ATTENDANT * Are you blind or do you have serious difficulty seeing, even when wearing glasses? Answer Date of Assessment Author No 08/04/2022 2:24 PM Josi Berrios APRN.BANK VAULT ATTENDANT * Do you have serious difficulty walking or climbing stairs? Answer Date of Assessment Author No 08/04/2022 2:24 PM Josi Berrios APRN.BANK VAULT ATTENDANT * Do you have difficulty dressing or bathing? Answer Date of Assessment Author No 08/04/2022 2:24 PM Josi Berrios APRN.BANK VAULT ATTENDANT * Because of a physical, mental, or emotional condition, do you have difficulty doing errands alone such as visiting a doctor's office or shopping? Answer Date of Assessment Author No 08/04/2022 2:24 PM Josi Berrios APRN.BANK VAULT ATTENDANT documented as of this encounter Mental Status * Because of a physical, mental, or emotional condition, do you have serious difficulty concentrating, remembering, or making decisions? Answer Entry Date Author No 08/04/2022 2:24 PM Josi Berrios APRN.BANK VAULT ATTENDANT documented in this encounter Plan of Treatment Upcoming Encounters Date Type Department Care Team (Latest Contact Info) Description 04/25/2025 2:00 PM EDT Office Visit [facility] [address] [place] [address] lab 04/25/2025 2:[address] [facility] Hematology/Oncology [address] [place] [address] Aranesp every 2 weeks 05/09/2025 1:15 PM EDT Office Visit [facility] [address] [place] [address] 1 month follow up, labs, B12 & Aranesp 05/09/2025 1:30 PM EDT Visit (SP) Office Hematology/Oncology [address] [place] [address] Josi Burris APRN.BANK VAULT ATTENDANT [address] [place] [address] 6 week follow up, labs, B12 & Aranesp 05/09/2025 2:00 PM EDT Infusion Center Hematology/Oncology [address] [place] [address] [place] [address] Aranesp every 2 weeks 05/09/2025 2:15 PM EDT Infusion Center Hematology/Oncology [address] [place] [address] [place] [address] B12 documented as of this encounter Visit Diagnoses Not on filedocumented in this encounter Care Teams Attendant Child Activity Relationship Specialty Start Date End Date Stephanie Dumont PCP - General 04/20/23 documented as of this encounter
--- OUTSIDE RECORDS SUMMARY | 2025-04-23 11:59 | XMS_ITS | Encounter Summary ---
Author Organization [facility] Address [address] [place] [address] Care Team Providers Care Contribution Solicitor Name Role Phone Stephanie Dumont EXTERIOR WORK HELPER Unavailable [phone] Wilfred Polanco MD Primary Care Provider [phone] Stephanie Dumont NP Unavailable [phone] Encounter Details Date Type Department Care Team (Latest Contact Info) Description 04/23/2025 Travel Social History Tobacco Use Types Packs/Day Years [...] Upcoming Encounters Date Type Department Care Team ( Contact Info) Description 10/01/2025 11:10 AM EDT Office Visit [facility] [address] [facility] [address] [place] [address] Nadia Mercado MD [address] [facility] [address] [place] [address] documented as of this encounter Visit Diagnoses Not on filedocumented in this encounter Additional Health Concerns Assessment Noted Time PHQ-9 Depression Total Score: 2 05/14/20 10:42 AM EST documented as of this encounter Care Teams Contribution Solicitor Relationship Specialty Start Date End Date Stephanie Dumont NP [address] [place] [address] PCP - [facility] 10/09/23 12/07/70 Wilfred Polanco MD [address] [place] [address] PCP - General Family Medicine 03/27/25 Stephanie Dumont NP [address] [place] [address] Nurse Practitioner Family Medicine 03/27/25 documented as of this encounter
--- OUTSIDE RECORDS SUMMARY | 2025-04-23 11:59 | XMS_ITS | Encounter Summary ---
Author Organization [facility] Address [address] [facility] [place] [address] Care Team Providers Care Motor Vehicle Field Representative Name Role Phone Stephanie Dumont FARM EQUIPMENT ENGINEER Unavailable [phone] Stephanie Dumont FARM EQUIPMENT ENGINEER Unavailable [phone] Wilfred Polanco MD Primary Care Provider Wilfred Polanco MD Primary Care Provider Stephanie Dumont FARM EQUIPMENT ENGINEER Unavailable Encounter Details Date Type Department Care Team ([facility] Contact Info) Description 12/25/2024 Orders Only [facility] [address] [facility] [place] [address] Valentin Osborne MD [address] [place] [address] [place] [address] Social History Tobacco Use Types Packs/Day Years [...] Department Care Team ([facility] Contact Info) Description 10/01/2025 11:10 AM EDT Office Visit [facility] [facility] [address] [place] [address] [place] [address] Nadia Mercado MD [address] [place] [address] documented as of this encounter Procedures Procedure [...] documented as of this encounter Care Teams Motor Vehicle Field Representative Relationship Specialty Start Date End Date Stephanie Dumont NP [address] [place] [address] PCP - [facility] 10/09/23 12/07/70 Wilfred Polanco MD [address] [place] [address] PCP - General Family Medicine 05/13/24 03/26/25 Wilfred Polanco MD [address] [place] [address] PCP - General Family Medicine 03/27/25 Stephanie Dumont NP Nurse Practitioner Family Medicine 04/09/23 03/26/25 Stephanie Dumont NP [address] [place] [address] Nurse Practitioner Family Medicine 03/27/25 documented as of this encounter
--- OUTSIDE RECORDS SUMMARY | 2025-04-23 12:00 | XMS_ITS | Clinical Summary ---
Author Organization [facility] Address [id number] [address] [place] [address] Care Team Providers Care Anatomic Pathology Assistant Name Role Phone Stephanie Dumont APRN-MICROBIOLOGY LAB TECHNICIAN Primary Care Provider Allergies Active Allergy Reactions [...] Encounters Date Type Department Care Team Description 01/22/2025 Telephone [facility] [address] [place] [address] No Pcp, No Pcp from Last 3 Months Family History Medical [...] Screening 12/07/2015 COVID-19 Vaccine (2023-2 5 season) 2025 05/17/2024, 05/26/2023, 02/05/2022, Additional history [...] PM CARDIOVASCULAR - 07/25/2022 1:45 PM EST [facility] Patient Name: Andrei Fish Procedure Date No Time: 07/25/2022 CSN : [id number] Date of : 1950 Admit Type: Outpatient Age: 71 Room: [place] [address] Gender: Female Note Status: Finalized Attending MD: [...] were monitored continuously. The [facility] PCF-H190DL # [id number] PEDIATRIC COLONOSCOPE was introduced through the anus [...] screening purposes. Procedure Code(s): --- Professional --- 32835, Colonoscopy, flexible; with removal of tumor(s), polyp(s), or other lesion(s) by snare technique Diagnosis Code(s): --- Professional --- Z12.11, Encounter for screening for malignant neoplasm of colon CPT copyright 2020 [employer]. All rights reserved. The codes documented in this report are preliminary and upon transport company manager review may be revised to meet current compliance requirements. MD Luz Marina Valenzuela, 07/25/2022 1:45:42 PM This report has been signed electronically.Luz Marina Jacobson Number of Addenda: 0 Note Initiated On: 07/25/2022 12:43 PM Procedure Note Luz Marina Jacobson MD - 07/25/2022 [facility] Patient Name: Andrei Fish Procedure Date No Time: 07/25/2022 CSN : [id number] Date of : 1950 Admit Type: Outpatient Age: 71 Room: [facility] OR 06 Gender: Female Note Status: Finalized Attending MD: [...] pulse, and oxygen saturations were monitored continuously. [facility] PCF-H190DL # [id number] PEDIATRIC COLONOSCOPE was introduced through the anus [...] for screeningpurposes. Procedure Code(s): --- Professional --- 96417, Colonoscopy, flexible; with removal of tumor(s), polyp(s), or other lesion(s) by snare technique Diagnosis Code(s): --- Professional --- Z12.11, Encounter for screening for malignant neoplasm of colon CPT copyright 2020 [employer]. All rights reserved. The codes documented in this report are preliminary and upon transport company manager reviewmay be revised to meet current compliance requirements. MD Luz Marina Valenzuela, 07/25/2022 1:45:42 PM This report has been signed electronically.Luz Marina Jacobson Number of Addenda: 0 Note Initiated On: 07/25/2022 12:43 PM Luz Marina Jacobson MD GI PROCEDURE ORDERABLES Fi nal Result PM CARDIOVASCULAR from Last 3 Months or Most Recently Relevant to Health Maintenance Insurance [facility] [employer] Care Teams Anatomic Pathology Assistant Relationship Specialty Start Date End Date Stephanie Dumont APRN-MICROBIOLOGY LAB TECHNICIAN PCP - General Nurse Practitioner 05/02/24
--- OUTSIDE RECORDS SUMMARY | 2025-04-23 12:00 | XMS_ITS | Encounter Summary ---
Author Organization [facility] Address [address] [facility] [place] [address] Care Team Providers Care Crimper Operator Name Role Phone Stephanie Dumont WALKING DRAGLINE OILER Unavailable [phone] Stephanie Dumont WALKING DRAGLINE OILER Unavailable [phone] Wilfred Polanco MD Primary Care Provider [phone] Wilfred Polanco MD Primary Care Provider [phone] Stephanie Dumont WALKING DRAGLINE OILER Unavailable [phone] Encounter Details Date Type Department Care Team (Late Contact Info) Description 05/06/2024 Orders Only [facility] [address] [place] [address] Stephanie Dumont WALKING DRAGLINE OILER [address] [place] [place] [address] Social History Tobacco Use Types Packs/Day Years [...] Upcoming Encounters Date Type Department Care Team ([facility] Contact Info) Description 10/01/2025 11:10 AM EDT Office Visit [facility] [address] [facility] [address] [place] [address] Nadia Mercado MD [address] [place] [address] documented as of this encounter Procedures Procedure Name Priority Date/Time Associated Diagnosis Comments BIOPSY THYROID Routine 05/06/2024 10:28 AM EDT documented in this encounter Results * Biopsy thyroid (05/06/2024 10:28 AM EDT) us Stephanie Dumont NP IN CLINIC/BEDSIDE ORDERABLES Fi nal Result documented in this encounter Visit Diagnoses Not on filedocumented in this encounter Care Teams Crimper Operator Relationship Specialty Start Date End Date Stephanie Dumont NP [address] [place] [address] PCP - [facility] 10/09/23 12/07/70 Wilfred Polanco MD [address] [place] [address] PCP - General Family Medicine 05/13/24 03/26/25 Wilfred Polanco MD [address] [place] [address] PCP - General Family Medicine 03/27/25 Stephanie Dumont NP Nurse Practitioner Family Medicine 04/09/23 03/26/25 Stephanie Dumont NP [address] [place] [address] Nurse Practitioner Family Medicine 03/27/25 documented as of this encounter
--- OUTSIDE RECORDS SUMMARY | 2025-04-23 12:00 | XMS_ITS | Encounter Summary ---
Author Organization [facility] Address [address] [place], [place] [address] Care Team Providers Care Tele Grout Sewer Line Repairer Name Role Phone Stephanie Dumont Primary Care Provider Unavailabl e Source Comments In the event this information is protected by the Federal Confidentiality of Alcohol and Drug AbusePatient Records regulations: The Federal rules restrict any use of the information to criminally investigate or prosecute any alcohol or drug abuse patient.[facility] Encounter Details Date Type Department Care Team (Late st Contact Info) Description 04/22/2025 Orders Only Hematology/Oncology [address] [place] [address] [place] [address] Rinku Dupree MD [address] [place] [address] [place] [address] 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 chronic kidney disease [...] is lower risk 9 12/15/2022 Data from: https://www.[facility]/. Last address used for calculation [address] [...] Author No 08/04/2022 2:24 PM Josi Berrios APRN.WAX PATTERN REPAIRER * Are you blind or do you have serious difficulty seeing, even when wearing glasses? Answer Date of Assessment Author No 08/04/2022 2:24 PM Josi Berrios APRN.WAX PATTERN REPAIRER * Do you have serious difficulty walking or climbing stairs? Answer Date of Assessment Author No 08/04/2022 2:24 PM Josi Berrios APRN.WAX PATTERN REPAIRER * Do you have difficulty dressing or bathing? Answer Date of Assessment Author No 08/04/2022 2:24 PM Josi Berrios APRN.WAX PATTERN REPAIRER * Because of a physical, mental, or emotional condition, do you have difficulty doing errands alone such as visiting a doctor's office or shopping? Answer Date of Assessment Author No 08/04/2022 2:24 PM Josi Berrios APRN.WAX PATTERN REPAIRER documented as of this encounter Mental Status * Because of a physical, mental, or emotional condition, do you have serious difficulty concentrating, remembering, or making decisions? Answer Entry Date Author No 08/04/2022 2:24 PM Josi Berrios APRN.WAX PATTERN REPAIRER documented in this encounter Plan of Treatment Upcoming Encounters Date Type Department Care Team (Latest Contact Info) Description 04/25/2025 2:00 PM EDT Office Visit [facility] [address] [place] [address] lab 04/25/2025 2:15 PM EDT [facility] Hematology/Oncology [address] [place] [address] Aranesp every 2 weeks 05/09/2025 1:15 PM EDT Office Visit [facility] [address] [place] [address] 1 month follow up, labs, B12 & Aranesp 05/09/2025 1:30 PM EDT Visit (SP) Office Hematology/Oncology [address] [place] [address] [place] [address] Josi Burris APRN.[employer] [address] [facility] [place] [address] 6 week follow up, labs, B12 & Aranesp 05/09/2025 2:00 PM EDT Infusion Center Hematology/Oncology [address] [place] [address] [place] [address] Aranesp every 2 weeks 05/09/2025 2:15 PM EDT Infusion Center Hematology/Oncology [address] [place] [address] [place] [address] B12 documented as of this encounter Visit Diagnoses Diagnosis 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)- Primary documented in this encounter Care Teams Tele Grout Sewer Line Repairer Relationship Specialty Start Date End Date Stephanie Dumont PCP - General 04/20/23 documented as of this encounter
--- OUTSIDE RECORDS SUMMARY | 2025-04-23 12:00 | XMS_ITS | Encounter Summary ---
Author Organization [facility] Address [address] [place] [address] Care Team Providers Care Artistic Associate Name Role Phone Stephanie Dumont MEAT CARVER Unavailable [phone] Wilfred Polanco MD Primary Care Provider Stephanie Dumont MEAT CARVER Unavailable [phone] Wilfred Polanco MD Primary Care Provider Wilfred Polanco MD Primary Care Provider Stephanie Dumont MEAT CARVER Unavailable Encounter Details Date Type Department Care Team (Late Contact Info) Description 04/16/2024 Clinisync Result Encounter [facility] External Department Unsolicited Stephanie Dumont, MEAT CARVER [address] [place] [address] Social History Tobacco Use Types Packs/Day Years [...] Team ([facility] Contact Info) Description 10/01/2025 11:10 AM EDT Office Visit [facility] [place] [facility] [address] [facility] [address] [place] [address] Nadia Mercado MD [address] [place] [address] documented as of this encounter Procedures Procedure Name Priority Date/Time Associated Diagnosis Comments US BIOPSY THYROID 04/16/2024 3:5 5 PM EDT documented in this encounter Results * US BIOPSY THYROID (04/16/2024 3:55 PM EDT) Anatomical Region Laterality Modality Other 04/16/2024 3:55 PM EDT Narrative 04/16/2024 3:57 PM EDT The [address] [address] Ultrasound Report Signed Patient: JASPREET LEO MR#: [id number] : 1950 Acct:[id number] Age/Sex: 73 / F ADM Date: 04/16/24 Loc: US Attending Dr: Stephanie Dumont MEAT CARVER Ordering Physician: Stephanie Dumont NP Date of Service: 04/16/24 Procedure(s): US biopsy thyroid Accession Number(s): [id number] cc: Stephanie Dumont NP The [address] [address] Patient Name: JASPREET LEO MRN: [id number] date: 1950 Sex: F Assigned Patient Location: US Current Patient Location: Accession/Order Number: [id number] Exam Date: 04/16/2024 14:00 Report Date: 04/16/2024 [...] Signed By: 04/16/24 1557 DD/ 1555 TD/TT: Craft Coordinator: Procedure Note Radiology, Radiologist, MD - 04/16/2024 [place] [address] Ultrasound Report Signed Patient: JASPREET LEO ZMR#: [id number] : 1950cct:[id number] Age/Sex: 73 / FADM Date: 04/16/24 Loc: US Attending Dr: Stephanie Dumont MEAT CARVER Ordering Physician: Stephanie Dumont NP Date of Service: 04/16/24 Procedure(s): US biopsy thyroid Accession Number(s): [id number] cc: Stephanie Dumont NP [place] [id number] Patient Name: JASPREET LEO MRN: [id number] date: 1950 Sex: F Assigned Patient Location: US Current Patient Location: Accession/Order Number: [id number] Exam Date: 04/16/2024 14:00 Report Date: 04/16/2024 [...] M.D. Signed By:04/16/24 1557 DD/ 1555 TD/TT: Craft Coordinator: us Stephanie Dumont NP [facility] Final Result documented in this encounter Visit Diagnoses Not on filedocumented in this encounter Care Teams Artistic Associate Relationship Specialty Start Date End Date Wilfred Polanco MD PCP - General Family Medicine 08/17/23 04/23/24 Stephanie Dumont NP [address] [place] [phone] PCP - [facility] 10/09/23 12/07/70 Wilfred Polanco MD PCP - General Family Medicine 05/13/24 03/26/25 Wilfred Polanco MD [address] [place] [address] PCP - General Family Medicine 03/27/25 Stephanie Dumont NP Nurse Practitioner Family Medicine 04/09/23 03/26/25 Stephanie Dumont NP [address] [place] [address] Nurse Practitioner Family Medicine 03/27/25 documented as of this encounter
--- OUTSIDE RECORDS SUMMARY | 2025-04-23 12:00 | XMS_ITS | Encounter Summary ---
Author Organization [facility] Address [address] [place] [address] Care Team Providers Care Manufacturer Agent Name Role Phone Stephanie Dumont Primary Care Provider Unavailabl e Source Comments In the event this information is protected by the Federal Confidentiality of Alcohol and Drug AbusePatient Records regulations: The Federal rules restrict any use of the information to criminally investigate or prosecute any alcohol or drug abuse patient.[facility] Encounter Details Date Type Department Care Team (Late st Contact Info) Description 04/21/2025 Orders Only Hematology/Oncology [address] [place] [address] Ana Hernandez, PAPorfirioC [address] [facility] [place] [address] 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 chronic kidney [...] is lower risk 9 12/15/2022 Data from: https://www.[facility] hospitalatlas.[facility]/. Last address used for [...] Author No 08/04/2022 2:24 PM Josi Berrios APRN.CUSTOMER PRICING MANAGER * Are you blind or do you have serious difficulty seeing, even when wearing glasses? Answer Date of Assessment Author No 08/04/2022 2:24 PM Josi Berrios APRN.CUSTOMER PRICING MANAGER * Do you have serious difficulty walking or climbing stairs? Answer Date of Assessment Author No 08/04/2022 2:24 PM Josi Berrios APRN.CUSTOMER PRICING MANAGER * Do you have difficulty dressing or bathing? Answer Date of Assessment Author No 08/04/2022 2:24 PM Josi Berrios APRN.CUSTOMER PRICING MANAGER * Because of a physical, mental, or emotional condition, do you have difficulty doing errands alone such as visiting a doctor's office or shopping? Answer Date of Assessment Author No 08/04/2022 2:24 PM Josi Berrios APRN.CUSTOMER PRICING MANAGER documented as of this encounter Mental Status * Because of a physical, mental, or emotional condition, do you have serious difficulty concentrating, remembering, or making decisions? Answer Entry Date Author No 08/04/2022 2:24 PM Josi Berrios APRN.CUSTOMER PRICING MANAGER documented in this encounter Plan of Treatment Upcoming Encounters Date Type Department Care Team (Latest Contact Info) Description 04/25/2025 2:00 PM EDT Office Visit [facility] [address] [place] [address] lab 04/25/2025 2:15 PM EDT [facility] Hematology/Oncology [address] [place] [address] Aranesp every 2 weeks 05/09/2025 1:15 PM EDT Office Visit [facility] [address] [place] [address] 1 month follow up, labs, B12 & Aranesp 05/09/2025 1:30 PM EDT Visit (SP) Office Hematology/Oncology [address] [place] [address] [place] [address] Josi Burris APRN.[facility] [address] [facility] [place] [address] 6 week follow up, labs, B12 & Aranesp 05/09/2025 2:00 PM EDT Infusion Center Hematology/Oncology [address] [place] [address] [place] [address] Aranesp every 2 weeks 05/09/2025 2:15 PM EDT Infusion Center Hematology/Oncology [address] [place] [address] [place] [address] B12 documented as of this encounter Visit Diagnoses Diagnosis 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)- Primary documented in this encounter Care Teams Manufacturer Agent Relationship Specialty Start Date End Date Stephanie Dumont PCP - General 04/20/23 documented as of this encounter
--- OUTSIDE RECORDS SUMMARY | 2025-04-23 12:00 | XMS_ITS | Encounter Summary ---
Author Organization [facility] Address [address] [place] [address] Care Team Providers Care Parts Cleaner Name Role Phone Stephanie Dumont Primary Care Provider Unavailabl e Source Comments In the event this information is protected by the Federal Confidentiality of Alcohol and Drug AbusePatient Records regulations: The Federal rules restrict any use of the information to criminally investigate or prosecute any alcohol or drug abuse patient.[facility] Encounter Details Date Type Department Care Team (Late st Contact Info) Description 04/21/2025 Orders Only Hematology/Oncology [address] [place] [address] Li Frank APRN.[facility] [address] [place] [address] Social History Tobacco Use Types Packs/Day Years [...] is lower risk 9 12/15/2022 Data from: https://www.neighborhoodatlas.medicine.[facility].edu/. Last address used for calculation [...] Author No 08/04/2022 2:24 PM Josi Berrios APRN.MATERIAL PREPARATION WORKER * Are you blind or do you have serious difficulty seeing, even when wearing glasses? Answer Date of Assessment Author No 08/04/2022 2:24 PM Josi Berrios APRN.MATERIAL PREPARATION WORKER * Do you have serious difficulty walking or climbing stairs? Answer Date of Assessment Author No 08/04/2022 2:24 PM Josi Berrios APRN.MATERIAL PREPARATION WORKER * Do you have difficulty dressing or bathing? Answer Date of Assessment Author No 08/04/2022 2:24 PM Josi Berrios APRN.MATERIAL PREPARATION WORKER * Because of a physical, mental, or emotional condition, do you have difficulty doing errands alone such as visiting a doctor's office or shopping? Answer Date of Assessment Author No 08/04/2022 2:24 PM Josi Berrios APRN.MATERIAL PREPARATION WORKER documented as of this encounter Mental Status * Because of a physical, mental, or emotional condition, do you have serious difficulty concentrating, remembering, or making decisions? Answer Entry Date Author No 08/04/2022 2:24 PM Josi Berrios APRN.MATERIAL PREPARATION WORKER documented in this encounter Plan of Treatment Upcoming Encounters Date Type Department Care Team (Latest Contact Info) Description 04/25/2025 2:00 PM EDT Office Visit [facility] Laboratory [address] [place] [address] lab 04/25/2025 2:15 PM EDT [facility] Hematology/Oncology [address] [place] [address] Aranesp every 2 weeks 05/09/2025 1:15 PM EDT Office Visit [facility] Laboratory [address] [place] [address] 1 month follow up, labs, B12 & Aranesp 05/09/2025 1:30 PM EDT Visit (SP) Office Hematology/Oncology [address] [place] [address] [place] [address] Josi Burris APRN.MATERIAL PREPARATION WORKER [address] [facility] [address] [place] [address] 6 week follow up, labs, B12 & Aranesp 05/09/2025 2:00 PM EDT Infusion Center Hematology/Oncology [address] [place] [address] [place] [address] Aranesp every 2 weeks 05/09/2025 2:15 PM EDT Infusion Center Hematology/Oncology [address] [place] [address] [place] [address] B12 documented as of this encounter Visit Diagnoses Not on filedocumented in this encounter Care Teams Parts Cleaner Relationship Specialty Start Date End Date Stephanie Dumont PCP - General 04/20/23 documented as of this encounter
--- OUTSIDE RECORDS SUMMARY | 2025-04-23 12:00 | XMS_ITS | Encounter Summary ---
Author Organization [facility] Address [address] [facility] [place] [address] Care Team Providers Care Ship Ceiler Name Role Phone Stephanie Dumont FASHION MERCHANDISER Unavailable [phone] Stephanie Dumont FASHION MERCHANDISER Unavailable [phone] Wilfred Polanco MD Primary Care Provider [phone] Wilfred Polanco MD Primary Care Provider [phone] Stephanie Dumont FASHION MERCHANDISER Unavailable [phone] Encounter Details Date Type Department Care Team (Late Contact Info) Description 05/02/2024 Orders Only [facility] [address] [place] [address] Stephanie Dumont FASHION MERCHANDISER [address] [place] [address] Social History Tobacco Use Types Packs/Day Years [...] Upcoming Encounters Date Type Department Care Team ([facility] Contact Info) Description 10/01/2025 11:10 AM EDT Office Visit [facility] [place] [facility] [address] [facility] [address] [place] [address] Nadia Mercado MD [address] [place] [address] documented as of this encounter Procedures Procedure Name Priority Date/Time Associated Diagnosis Comments BIOPSY THYROID Routine 05/02/2024 4:27 PM EDT documented in this encounter Results * Biopsy thyroid (05/02/2024 4:27 PM EDT) us Stephanie Dumont NP IN CLINIC/BEDSIDE ORDERABLES Fi nal Result documented in this encounter Visit Diagnoses Not on filedocumented in this encounter Care Teams Ship Ceiler Relationship Specialty Start Date End Date Stephanie Dumont NP [address] [place] [address] PCP - [facility] 10/09/23 12/07/70 Wilfred Polanco MD [address] [place] [address] PCP - General Family Medicine 05/13/24 03/26/25 Wilfred Polanco MD [address] [place] [address] PCP - General Family Medicine 03/27/25 Stephanie Dumont NP Nurse Practitioner Family Medicine 04/09/23 03/26/25 Stephanie Dumont NP [address] [place] [address] Nurse Practitioner Family Medicine 03/27/25 documented as of this encounter
--- OUTSIDE RECORDS SUMMARY | 2025-04-23 12:00 | XMS_ITS | Encounter Summary ---
Author Organization [facility] Address [address] [place] [address] Care Team Providers Care Aircraft Charter Dispatcher Name Role Phone Stephanie Dumont Primary Care Provider Unavailabl e Source Comments In the event this information is protected by the Federal Confidentiality of Alcohol and Drug AbusePatient Records regulations: The Federal rules restrict any use of the information to criminally investigate or prosecute any alcohol or drug abuse patient.[facility] Encounter Details Date Type Department Care Team (Late st Contact Info) Description 04/21/2025 Orders Only Hematology/Oncology [address] [place] [address] Josi Burris APRN.[facility] [address] [place] [address] Social History Tobacco Use Types Packs/Day Years [...] is lower risk 9 12/15/2022 Data from: https://www.neighborhoodatlas.medicine.[facility].edu/. Last address used for calculation [address] [...] Author No 08/04/2022 2:24 PM Josi Berrios APRN.AG EQUIPMENT FIELD SERVICE TECHNICIAN * Are you blind or do you have serious difficulty seeing, even when wearing glasses? Answer Date of Assessment Author No 08/04/2022 2:24 PM Josi Beriros APRN.AG EQUIPMENT FIELD SERVICE TECHNICIAN * Do you have serious difficulty walking or climbing stairs? Answer Date of Assessment Author No 08/04/2022 2:24 PM Josi Berrios APRN.AG EQUIPMENT FIELD SERVICE TECHNICIAN * Do you have difficulty dressing or bathing? Answer Date of Assessment Author No 08/04/2022 2:24 PM Josi Berrios APRN.AG EQUIPMENT FIELD SERVICE TECHNICIAN * Because of a physical, mental, or emotional condition, do you have difficulty doing errands alone such as visiting a doctor's office or shopping? Answer Date of Assessment Author No 08/04/2022 2:24 PM Josi Berrios, MIRIAM.AG EQUIPMENT FIELD SERVICE TECHNICIAN documented as of this encounter Mental Status * Because of a physical, mental, or emotional condition, do you have serious difficulty concentrating, remembering, or making decisions? Answer Entry Date Author No 08/04/2022 2:24 PM Josi Berrios, MIRIAM.AG EQUIPMENT FIELD SERVICE TECHNICIAN documented in this encounter Plan of Treatment Upcoming Encounters Date Type Department Care Team (Latest Contact Info) Description 04/25/2025 2:00 PM EDT Office Visit [facility] Laboratory [address] [place] [address] lab 04/25/2025 2:15 PM EDT Infusion Center Hematology/Oncology [address] [place] [address] Aranesp every 2 weeks 05/09/2025 1:15 PM EDT Office Visit [facility] [address] [place] [address] 1 month follow up, labs, B12 & Aranesp 05/09/2025 1:30 PM EDT Visit (SP) Office Hematology/Oncology [address] [place] [address] [place] [address] Josi Burris APRN.[facility] [address] [facility] [address] [place] [address] 6 week follow up, labs, B12 & Aranesp 05/09/2025 2:00 PM EDT Infusion Center Hematology/Oncology [address] [place] [address] [place] [address] Aranesp every 2 weeks 05/09/2025 2:15 PM EDT Infusion Center Hematology/Oncology [address] [place] [address] [place] [address] B12 documented as of this encounter Visit Diagnoses Not on filedocumented in this encounter Care Teams Aircraft Charter Dispatcher Relationship Specialty Start Date End Date Stephanie Dumont PCP - General 04/20/23 documented as of this encounter
--- OUTSIDE RECORDS SUMMARY | 2025-04-23 12:00 | XMS_ITS | Patient Health Record ---
Author Organization [facility] Address [address] [place] [address] Support Name Relationship Address Phone Rahul Emergency Contact Unknown [phone] Rahul Fish Guarantor Unknown [phone] Reason For Referral No Information Plan Of Treatment No Information Insurance Providers Payer Name Payer Address Payer Phone Subscriber Number Group Number Insured Name Patient Relationship to Insured Coverage Start Date Coverage End Date SELF PAY ON PATIENT DEMOGRAPHICS Andrei Fish Self - patient is the insured 8
--- OUTSIDE RECORDS SUMMARY | 2025-04-23 12:00 | XMS_ITS | Encounter Summary ---
Author Organization [facility] Address [address] [facility] [place] [address] Care Team Providers Care Glue Cook Name Role Phone Stephanie Dumont DIRECT SUPPORT PROFESSIONAL Unavailable [phone] Stephanie Dumont NP Unavailable [phone] Wilfred Polanco MD Primary Care Provider [phone] Wilfred Polanco MD Primary Care Provider [phone] Stephanie Dumont NP Unavailable [phone] Encounter Details Date Type Department Care Team (Late st Contact Info) Description 05/14/2024 Orders Only [facility] [address] [facility] [place] [address] Stephanie Dumont NP [address] [facility] [place] [address] Social History Tobacco Use Types Packs/Day Years [...] things Not at all 05/14/2024 10:42 AM Nik Akbar MA Feeling down, depressed, or hopeless Not at all 05/14/2024 10:42 AM Nik Akbar MA Patient Health Questionnaire-2 Score 0 05/14/2024 10:42 AM Natalie Akbar MA * Question Answer Date of Assessment Author Trouble falling or staying asleep, or sleeping too much Not at all 05/14/2024 10:42 AM Roselia Muñoz MA Feeling tired or having little energy Several days 05/14/2024 10:42 AM Nik Akbar MA Poor appetite or overeating Several days 05/14/2024 10 :42 AM Roselia Akbar MA Feeling bad about yourself - or that you are a failure or have let yourself or your family down Not at all 05/14/2024 10:42 AM Nik Akbar MA Trouble concentrating on things, such as reading the newspaper or watching television Not at all 05/14/2024 10:42 AM Nik Akbar MA Moving or speaking so slowly that other people could have noticed? Or the opposite - being so fidgety or restless that you have been moving around a lot more than usual. Not at all 05/14/2024 10:42 AM Nik Akbar MA Thoughts that you would be better off or hurting yourself in some way Not at all 05/14/2024 10:42 AM Ava Akbar MA Patient Health Questionnaire-9 Score 2 05/14/2024 10:42 AM Natalie Akbar MA * Geriatric Depression Scale (Short Version) Question Answer Date of Assessment Author Are you basically satisfied with your life? Yes 05/14/2024 10:45 AM Nik Akbar MA Have you dropped many of you r activities and interests? No 05/14/2024 10:45 AM Roselia Akbar MA Do you feel that your life i s empty? No 05/14/2024 10:45 AM Nik Akbar MA Do you often get bored? No 05/14/2024 10:45 AM Roselia Akbar MA Are you in good spirits most of the time? Yes 05/14/2024 10:45 AM Nik Akbar MA Are you afraid that somethin g bad is going to happen to you? No 05/14/2024 10:45 AM Roselia Gaffney MA Do you feel happy most of th e time? Yes 05/14/2024 10:45 AM Nik Akbar MA Do you often feel helpless? No 05/14/2024 10 :45 AM Roselia Akbar MA [facility] you [facility] to [facility], rather than going out and doing new things? No 05/14/2024 10:45 AM Nik Akbar MA Do you feel you have more problems with memory than most? No 05/14/2024 10:45 AM Roselia Burgos MA Do you think it is wonderful to be alive now? Yes 05/14/2024 10:45 AM Nik Akbar MA Do you feel pretty worthless the way you are now? No 05/14/2024 10:45 AM Ava Akbar MA Do you feel full of energy? Yes 05/14/2024 10 :45 AM Roselia Akbar MA Do you feel that your situat ion is hopeless? No 05/14/2024 10:45 AM Nik Akbar MA Do you think that most peopl e are better off than you are? No 05/14/2024 10:45 AM Roselia Muñoz MA Geriatric Depression Scale (Short Version) Total 0 05/14/2024 10:45 AM Natalie Akbar MA documented as of this encounter Plan of Treatment Upcoming Encounters Date Type Department Care Team (Late st Contact Info) Description 10/01/2025 11:10 AM EDT Office Visit [facility] [place] [facility] [address] [place] [address] Nadia Mercado MD [address] [place] [address] documented as of this encounter Procedures Procedure Name Priority Date/Time Associated Diagnosis Comments XR DEXA AXIAL SKELETON* Routine 05/14/2024 1:32 PM EST documented in this encounter Results * XR DEXA AXIAL SKELETON* (05/14/2024 1:32 PM EST) Anatomical Region Laterality Modality Radiographic Maryam ging Stephanie Dumont DIRECT SUPPORT PROFESSIONAL IMG XR PROCEDURES Final Result documented in this encounter Visit Diagnoses Not on filedocumented in this encounter Additional Health Concerns Assessment Noted Time PHQ-9 Depression Total Score: 2 05/14/20 10:42 AM EST documented as of this encounter Care Teams Glue Cook Relationship Specialty Start Date End Date Stephanie Dumont NP [address] [place] [address] PCP - [facility] 10/09/23 12/07/70 Wilfred Polanco MD [address] [place] [address] PCP - General Family Medicine 05/13/24 03/26/25 Wilfred Polanco MD [address] [place] [address] PCP - General Family Medicine 03/27/25 Stephanie Dumont NP Nurse Practitioner Family Medicine 04/09/23 03/26/25 Stephanie Dumont NP [address] [place] [address] Nurse Practitioner Family Medicine 03/27/25 documented as of this encounter
--- OUTSIDE RECORDS SUMMARY | 2025-04-23 12:00 | XMS_ITS | Encounter Summary ---
Author Organization [facility] Address [address] [place], [place] [id number] Care Team Providers Care Tile Setter Supervisor Name Role Phone Shaikh THEODORE Biswas Primary Care Provider [phone] Stephanie Dumotn Primary Care Provider Unavailabl e Source Comments In the event this information is protected by the Federal Confidentiality of Alcohol and Drug AbusePatient Records regulations: The Federal rules restrict any use of the information to criminally investigate or prosecute any alcohol or drug abuse patient.[facility] Encounter Details Date Type Department Care Team [...] N ot on file 07/24/2022 Data from: https://www.neighborhoodatlas.medicine.[facility].edu/. Last address used for calculation [...] Author No 08/04/2022 2:24 PM Josi Berrios, MIRIAM.TEMPER MILL ROLLER * Are you blind or do you have serious difficulty seeing, even when wearing glasses? Answer Date of Assessment Author No 08/04/2022 2:24 PM Josi Berrios, MIRIAM.TEMPER MILL ROLLER * Do you have serious difficulty walking or climbing stairs? Answer Date of Assessment Author No 08/04/2022 2:24 PM Josi Berrios APRN.TEMPER MILL ROLLER * Do you have difficulty dressing or bathing? Answer Date of Assessment Author No 08/04/2022 2:24 PM Josi Berrios, MIRIAM.TEMPER MILL ROLLER * Because of a physical, mental, or emotional condition, do you have difficulty doing errands alone such as visiting a doctor's office or shopping? Answer Date of Assessment Author No 08/04/2022 2:24 PM Josi Berrios, MIRIAM.TEMPER MILL ROLLER documented as of this encounter Mental Status * Because of a physical, mental, or emotional condition, do you have serious difficulty concentrating, remembering, or making decisions? Answer Entry Date Author No 08/04/2022 2:24 PM Josi Berrios, MIRIAM.TEMPER MILL ROLLER documented in this encounter Plan of Treatment Upcoming Encounters Date Type Department Care Team (Latest Contact Info) Description 04/25/2025 2:00 PM EDT Office Visit [facility] [address] [place] [address] lab 04/25/2025 2:15 PM EDT [facility] Hematology/Oncology [address] [place] [address] Aranesp every 2 weeks 05/09/2025 1:15 PM EDT Office Visit [facility] [address] [place] [address] 1 month follow up, labs, B12 & Aranesp 05/09/2025 1:30 PM EDT Visit (SP) Office Hematology/Oncology [address] [place] [address] Josi Burris APRN.TEMPER MILL ROLLER [address] [place] [address] 6 week follow up, labs, B12 & Aranesp 05/09/2025 2:00 PM EDT Infusion Center Hematology/Oncology [address] [place] [address] [place] [address] Aranesp every 2 weeks 05/09/2025 2:15 PM EDT Infusion Center Hematology/Oncology [address] [place] [address] [place] [address] B12 documented as of this encounter Visit Diagnoses Not on filedocumented in this encounter Care Teams Tile Setter Supervisor Relationship Specialty Start Date End Date Shaikh Biswas MD [address] [place] [address] PCP - General Primary Care 09/15/22 12/18/22 Stephanie Dumont [address] [place] [address] PCP - General 04/20/23 documented as of this encounter
--- OUTSIDE RECORDS SUMMARY | 2025-04-23 12:00 | XMS_ITS | Encounter Summary ---
Author Organization [facility] Address [address] [place] [address] Care Team Providers Care Client Services Representative Name Role Phone Stephanie Dumont Primary Care Provider Unavailabl e Source Comments In the event this information is protected by the Federal Confidentiality of Alcohol and Drug AbusePatient Records regulations: The Federal rules restrict any use of the information to criminally investigate or prosecute any alcohol or drug abuse patient.[facility] Encounter Details Date Type Department Care Team (Late st Contact Info) Description 04/11/2025 Orders Only Hematology/Oncology [address] [place] [address] Ana Hernandez PAPorfirioC [address] [place] [address] 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 chronic kidney [...] is lower risk 9 12/15/2022 Data from: https://www.[facility] hospitalatlas.[facility]/. Last address used for calculation [address] [...] Author No 08/04/2022 2:24 PM Josi Berrios APRN.TRAINING EXECUTIVE * Are you blind or do you have serious difficulty seeing, even when wearing glasses? Answer Date of Assessment Author No 08/04/2022 2:24 PM Josi Berrios APRN.TRAINING EXECUTIVE * Do you have serious difficulty walking or climbing stairs? Answer Date of Assessment Author No 08/04/2022 2:24 PM Josi Berrios APRN.TRAINING EXECUTIVE * Do you have difficulty dressing or bathing? Answer Date of Assessment Author No 08/04/2022 2:24 PM Josi Berrios APRN.TRAINING EXECUTIVE * Because of a physical, mental, or emotional condition, do you have difficulty doing errands alone such as visiting a doctor's office or shopping? Answer Date of Assessment Author No 08/04/2022 2:24 PM Josi Berrios APRN.TRAINING EXECUTIVE documented as of this encounter Mental Status * Because of a physical, mental, or emotional condition, do you have serious difficulty concentrating, remembering, or making decisions? Answer Entry Date Author No 08/04/2022 2:24 PM Josi Berrios APRN.TRAINING EXECUTIVE documented in this encounter Plan of Treatment Upcoming Encounters Date Type Department Care Team (Latest Contact Info) Description 04/25/2025 2:00 PM EDT Office Visit [facility] [address] [place] [address] lab 04/25/2025 2:15 PM EDT [facility] Hematology/Oncology [address] [place] [address] Aranesp every 2 weeks 05/09/2025 1:15 PM EDT Office Visit [facility] [address] [place] [address] 1 month follow up, labs, B12 & Aranesp 05/09/2025 1:30 PM EDT Visit (SP) Office Hematology/Oncology [address] [place] [address] [place] [address] Josi Burris APRN.[facility] [address] [place] [address] 6 week follow up, labs, B12 & Aranesp 05/09/2025 2:00 PM EDT Infusion Center Hematology/Oncology [address] [place] [address] [place] [address] Aranesp every 2 weeks 05/09/2025 2:15 PM EDT Infusion Center Hematology/Oncology [address] [place] [address] [place] [address] B12 documented as of this encounter Visit Diagnoses Diagnosis 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)- Primary documented in this encounter Care Teams Client Services Representative Relationship Specialty Start Date End Date Stephanie Dumont PCP - General 04/20/23 documented as of this encounter
--- OUTSIDE RECORDS SUMMARY | 2025-04-23 12:00 | XMS_ITS | Encounter Summary ---
Author Organization [facility] Address [address] [place] [address] Care Team Providers Care Corporate Staff Accountant Name Role Phone Stephanie Dumont MARQUETRY WORKER Unavailable [phone] Stephanie Dumont MARQUETRY WORKER Unavailable [phone] Wilfred Polanco MD Primary Care Provider [phone] Wilfred Polanco MD Primary Care Provider [phone] Stephanie Dumont MARQUETRY WORKER Unavailable [phone] Encounter Details Date Type Department Care Team ([facility] Contact Info) Description 05/29/2024 Clinisync Result Encounter [facility] External Department Unsolicited Stephanie Dumont NP [address] [place] [address] Social History Tobacco Use Types Packs/Day Years [...] Upcoming Encounters Date Type Department Care Team ([facility] Contact Info) Description 10/01/2025 11:10 AM EDT Office Visit [facility] [address] [facility] [address] [place] [address] Nadia Mercado MD [address] [place] [address] documented as of this encounter Procedures Procedure Name Priority Date/Time Associated Diagnosis Comments CT CHEST WO CON 05/29/2024 6:00 AM EST documented in this encounter Results * CT CHEST WO CON (05/29/2024 6:00 AM EST) Anatomical Region Laterality Modality Other 05/29/2024 6:00 AM EST Narrative 05/29/2024 6:03 AM EST The [address] [address] [address] Scan Report Signed Patient: JASPREET LEO MR#: [id number] : 1950 Acct:[id number] Age/Sex: 73 / F ADM Date: 05/28/24 Loc: CT Attending Dr: Stephanie Dumont MARQUETRY WORKER Ordering Physician: Stephanie Dumont NP Date of Service: 05/28/24 Procedure(s): CT chest wo con Accession Number(s): [id number] cc: Stephanie Dumont NP [address] [address] Patient Name: JASPREET LEO MRN: [id number] date: 1950 Sex: F Assigned Patient Location: CT Current Patient Location: Accession/Order Number: [id number] Exam Date: 05/28/2024 11:02 Report Date: 05/29/2024 [...] to help establish baseline. Electronically authenticated by: SIMON ZUNIGA Date: 05/29/2024 06:00 Dictated By: Simon Zuniga M.D. Signed By: 05/29/24602 DD/ 9 TD/TT: Analysis Mgr: Procedure Note Radiology, Radiologist, MD - 05/29/2024 [place] [address] CT Scan Report Signed Patient: JASPREET LEO ZMR#: [id number] : 1950cct:[id number] Age/Sex: 73 / FADM Date: 05/28/24 Loc: CT Attending Dr: Stephanie Dumont NP Ordering Physician: Stephanie Dumont NP Date of Service: 05/28/24 Procedure(s): CT chest wo con Accession Number(s): [id number] cc: Stephanie Dumont NP The [place] [id number] Patient Name: JASPREET LEO MRN: [facility]:[id number] date: 1950 Sex: F Assigned Patient Location: CT Current Patient Location: Accession/Order Number: [id number] Exam Date: 05/28/2024 11:02 Report Date: 05/29/2024 [...] to help establish baseline. Electronically authenticated by: SIMON ZUNIGA Date: 05/29/2024 06:00 Dictated By: Simon Zuniga M.D. Signed By:05/29/24 06 DD/ 06 TD/TT: Analysis Mgr: us Stephanie Dumont NP [facility] Final Result documented in this encounter Visit Diagnoses Not on filedocumented in this encounter Additional Health Concerns Assessment Noted Time PHQ-9 Depression Total Score: 2 05/14/20 10:42 AM EST documented as of this encounter Care Teams Corporate Staff Accountant Relationship Specialty Start Date End Date Stephanie Dumont NP [address] [place] [address] PCP - [facility] 10/09/23 12/07/70 Wilfred Polanco MD [address] [place] [address] PCP - General Family Medicine 05/13/24 03/26/25 Wilfred Polanco MD [address] [place] [address] PCP - General Family Medicine 03/27/25 Stephanie Dumont NP Nurse Practitioner Family Medicine 04/09/23 03/26/25 Stephanie Dumont NP [address] [place] [address] Nurse Practitioner Family Medicine 03/27/25 documented as of this encounter
--- OUTSIDE RECORDS SUMMARY | 2025-04-23 12:00 | XMS_ITS | Encounter Summary ---
Author Organization [facility] Address [address] [facility] [place] [address] Care Team Providers Care Cloth Finisher Name Role Phone Stephaine Dumont MECHANIC Unavailable [phone] Wilfred Polanco MD Primary Care Provider Stephanie Dumont MECHANIC Unavailable [phone] Wilfred Polanco MD Primary Care Provider Wilfred Polanco MD Primary Care Provider Stephanie Dumont NP Unavailable [phone] Encounter Details Date Type Department Care Team (Late Contact Info) Description 04/16/2024 Orders Only [facility] [address] [place] [address] Stephanie Dumont MECHANIC [address] [place] [address] Social History Tobacco Use Types Packs/Day Years [...] [facility] [facility] [address] [place] [address] [place] [address] Nadia Mercado MD [address] [place] [address] [place] [address] documented as of this encounter Procedures Procedure Name Priority Date/Time Associated Diagnosis Comments BIOPSY THYROID Routine 04/16/2024 4:42 PM EDT documented in this encounter Results * Biopsy thyroid (04/16/2024 4:42 PM EDT) us Stephanie Dumont NP IN CLINIC/BEDSIDE ORDERABLES Fi nal Result documented in this encounter Visit Diagnoses Not on filedocumented in this encounter Care Teams Cloth Finisher Relationship Specialty Start Date End Date Wilfred Polanco MD PCP - General Family Medicine 08/17/23 04/23/24 Stephanie Dumont NP [address] [place] [address] PCP - [facility] 10/09/23 12/07/70 Wilfred Polanco MD PCP - General Family Medicine 05/13/24 03/26/25 Wilfred Polanco MD [address] [place] [address] PCP - General Family Medicine 03/27/25 Stephanie Dumont NP Nurse Practitioner Family Medicine 04/09/23 03/26/25 Stephanie Dumont NP [address] [place] [address] Nurse Practitioner Family Medicine 03/27/25 documented as of this encounter
--- OUTSIDE RECORDS SUMMARY | 2025-04-23 12:01 | XMS_ITS | Encounter Summary ---
Author Organization [facility] Address [address] [place] [address] Care Team Providers Care Gunsmith Apprentice Name Role Phone Stephanie Dumont CREDIT INVESTIGATOR Unavailable [phone] Wilfred Polanco MD Primary Care Provider Stephanie Dumont CREDIT INVESTIGATOR Unavailable [phone] Wilfred Polanco MD Primary Care Provider Wilfred Polanco MD Primary Care Provider Stephanie Dumont CREDIT INVESTIGATOR Unavailable [phone] Encounter Details Date Type Department Care Team (Late st Contact Info) Description 09/13/2023 Orders Only [facility] [address] [phone] Gilson Sarah MD [address] [facility] [place] [phone] Social History Tobacco Use Types Packs/Day Years [...] EDT Office Visit [facility] [place] [address] [facility] [address] [place] [address] Nadia Mercado MD [address] [facility] [address] [place] [address] documented as of this encounter Procedures Procedure Name Priority Date/Time Associated Diagnosis Comments US RENAL KIDNEY AND BLADDER Routine 09/11/2023 2:22 PM EST documented in this encounter Results * US RENAL KIDNEY AND BLADDER (09/11/2023 2:22 PM EST) Anatomical Region Laterality Modality Radiographic Maryam ging us Gilson Sarah MD IMG XR PROCEDURES Final Result documented in this encounter Visit Diagnoses Not on filedocumented in this encounter Care Teams Gunsmith Apprentice Relationship Specialty Start Date End Date Wilfred Polanco MD PCP - General Family Medicine 08/17/23 04/23/24 Stephanie Dumont NP [address] [place] [address] PCP - [facility] 10/09/23 12/07/70 Wilfred Polanco MD PCP - General Family Medicine 05/13/24 03/26/25 Wilfred Polanco MD [address] [place] [address] PCP - General Family Medicine 03/27/25 Stephanie Dumont NP Nurse Practitioner Family Medicine 04/09/23 03/26/25 Stephanie Dumont NP [address] [place] [address] Nurse Practitioner Family Medicine 03/27/25 documented as of this encounter
--- OUTSIDE RECORDS SUMMARY | 2025-04-23 12:01 | XMS_ITS | Clinical Summary ---
Author Organization [facility] Address [address] [place] [address] Care Team Providers Care Hard Tile Setter Apprentice Name Role Phone Stephanie Dumont QUILTER FIXER Unavailable [phone] Wilfred Polanco MD Primary Care Provider [phone] Stephanie Dumont NP Unavailable [phone] Allergies Active Allergy Reactions Criticality Noted Date Comments Vgwihzi-Mnvotf-Hnalv Pertussis Rash Low 06/06/2023 Vancomycin Other 06/06/2023 States had burning sensation t/o entire body. (Infectious disease) States medication was given too fast. Medications hydroCHLOROthiaz kristian (HYDRODiuril) 25 MG tablet Take 25 mg by mouth Daily 01/27/20 23 Active losartan (Cozaar) 25 MG tablet Take 50 mg by mouth at bedtime 06/15/20 22 Active pilocarpine (Salagen) 5 MG tablet Take 1 tablet by mouth in the morning and 1 tablet in the evening and 1 tablet before bedtime. 01/28/20 23 Active benzonatate (Tessalon) 100 MG capsule Take 100 mg by mouth every 6 (six) hours if needed 07/11/19 25 Active ergocalciferol (Vitamin D-2) 1.25 MG (34277 UT) capsule Take 50,000 Units by mouth 1 (one) time per week Active Fostamatinib Disodium (Tavalisse) 100 MG tablet Take 100 mg by mouth in the morning and 100 mg before bedtime. Active metoprolol succinate XL (Toprol-XL) 25 MG 24 hr tabletIndication s:Coronary artery disease involving tlingit & haida coronary artery of tlingit & haida heart without angina pectoris Take 0.5 tablets (12.5 mg) by mouth Daily Do not crush or chew. 45 tablet 1 01/01/20 25 Active Additional Information Patient taking differently:12.5 mg Oral Daily,(No times of day reported), Do not crush or chew., Reported on 04/23/2025 alendronate (Fosamax) 70 MG tabletIndication s:Age-related osteoporosis without current pathological fracture Take 1 tablet (70 mg) by mouth every 7 (seven) days Take in the morning with a full glass of water, on an empty stomach, and do not take anything else by mouth or lie down for the next 30 min. 12 tablet 1 01/02/20 25 Active spironolactone (Aldactone) 25 MG tablet Take 25 mg by mouth in the morning. 09/08/19 23 025 Discontinu ed(Therapy completed) sodium bicarbonate 650 MG tablet Take 650 mg by mouth in the morning and 650 mg before bedtime. 12/28/19 25 025 Discontinu ed(Therapy completed) clotrimazole (Mycelex) 10 MG trocheIndication s:Acute glossitis Take 1 tablet (10 mg) by mouth 5 (five) times a day for 10 days 50 tablet 04/02/20 25 025 Active Problems Problem Noted Date Diagnosed Date Abdominal aortic aneurysm (AAA) without rupture 01/21/2025 Lumbar spondylosis 01/15/2025 Assessment & Plan (01/15/2025 2:58 PM EDT): Deg noted on CT scan Check neck xray DARYL (acute kidney injury) 01/06/2025 Assessment & Plan (01/06/2025 12:46 PM EDT): Values returning more to baseline Cont with nephrology Chronic kidney disease, stage 3b 12/25/2024 Assessment & Plan (01/15/2025 7:22 AM EDT): Goal control blood pressures Check labs semi annually as well as prn sxs changes Has aldactone on hold until sees Nephrolgoist Assessment & Plan (01/06/2025 12:44 PM EDT): Goal control blood pressures Check labs semi annually as well as prn sxs changes Has aldactone on hold until sees Nephrolgoist Assessment & Plan (12/25/2024 6:03 AM EDT): Goal control blood pressures Check labs semi annually as well as prn sxs changes Encounter for subsequent [facility] wellness visit (AWV) in Medicare patient 05/14/2024 [...] in 11/2024 Diarrhea 04/24/2024 Assessment & Plan (01/06/2025 12:44 PM EDT): Resolved and cultures were negative Assessment & Plan (12/25/2024 11:54 AM EDT): Ongoing since 1 week, worsening in fatigue and weakness Orthostatics in office today: Lying 112/62, sitting 102/62, and standing 86/54 I do suspect dehydration is an issue, d/t these sxs and BP and age and medical conditions, I am going to have her go to [facility] ER for evaluation.she is agreeable to [...] this time Monitor A1c in 3 months Encounter for screening mamm ogram for malignant [...] Thyroid US Coronary artery disease invo lving tlingit & haida coronary artery of tlingit & haida heart 02/26/2024 Assessment & Plan (12/25/2024 6:02 [...] Await her to let me know which environmental systems coordinator referral Calcification of aortic valve 02/26/2024 Assessment [...] of both legs 11/28/2023 Assessment & Plan (01/15/2025 2:58 PM EDT): Check lumbar xray DD: vascular, radicular Assessment & Plan (11/28/2023 1:42 PM EDT): No acute findings on PE Recommend going to ER for evaluation Will proceed to [facility] Hyperkalemia with normal acid-base balance 11/26 Assessment & Plan (11/28/2023 1:43 PM EDT): Initially was going to have her recheck this, however we will send to [facility] ER for evaluation Cholesteatoma of left ear 11/14/2023 Claudication of both lower extremities Assessment & Plan (02/12/2024 2:22 PM EDT): TIMA's with segmental pressures Assessment & Plan (11/28/2023 1:42 PM EDT): Could also be the cause of bilat leg heaviness or weakness PAD (peripheral artery disease) 06/08/2023 Assessment & Plan (02/12/2024 2:22 PM EDT): TIMA's with segmental pressures at [facility] Age-related osteoporosis wit hout current pathological fracture 06/06/2023 Overview (05/14/2024): DEXA scan 05/24/2023: -2.9, osteoporosis Assessment & Plan (06/06/2023 2:16 PM EST): Reviewed DEXA Will trial fosamax, reviewed side effects Recommend OTC calcium/vit d supplement as well Leg pain, bilateral 06/06/2023 Assessment & Plan [...] Obesity (BMI 30-39.9) 06/06/2023 Assessment & Plan (01/15/2025 7:22 AM EDT): Discussed with patient their BMI (actual, verses recommended). We have also discussed lifestyle modifications: attempts to perform physical activity as chronic conditions allow, also to monitor dietary intake: increasing protein/fruits/veggies and lowering carb intake (unless contraindicated). Limit sodas, juices, and sugary drinks. Assessment & Plan (12/25/2024 6:03 AM EDT): [...] Hem/onc Tobacco dependence 06/28/2022 Assessment & Plan (01/15/2025 7:23 AM EDT): The patient has been advised of the risks of continued smoking: stroke, CT, all forms of cancer, lung disease, and . Options for quitting smoking include: cold turkey, hypnosis, acupuncture, nicotine replacement meds (gum, lozenges, and patches), Buproprion, and Varenicline. At this time pt is encouraged to evaluate their goals for wanting to quit smoking, and reach out to provider when ready to start this process Assessment & Plan (01/06/2025 12:45 PM EDT): The patient has been advised of the risks of continued smoking: stroke, CT, all forms of cancer, lung disease, and . Options for quitting smoking include: cold turkey, hypnosis, acupuncture, nicotine replacement meds (gum, lozenges, and patches), Buproprion, and Varenicline. At this time pt is encouraged to evaluate their goals for wanting to quit smoking, and reach out to provider when ready to start this process Assessment & Plan (12/25/2024 6:04 AM EDT): The patient has been advised of the risks of continued smoking: stroke, CT, all forms of cancer, lung disease, and [...] of the risks of continued smoking: stroke, CT, all forms of cancer, lung disease, and [...] of the risks of continued smoking: stroke, CT, all forms of cancer, lung disease, and [...] artery pressures as well Assessment & Plan (01/06/2025 12:43 PM EDT): Please check blood pressure daily and record DASH diet Limit caffeine Take medication as directed Contact office if chest pain, pressure, dizziness, shortness of breath, swelling legs Recommend slow position changes Current meds: hydrochlorothiazide, losartan, metoprolol, Assessment & Plan (12/25/2024 6:02 AM EDT): [...] PM EDT): Continue with [facility] for treatment Abnormal weight loss 03/03/2016 Resolved Problems Problem Noted Date Diagnosed Date Resolved Date 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 01/15/2025 025 Chronic kidney disease, stage 3a 08/15/2024 12/25/2024 Assessment & Plan (08/15/2024 6:48 AM EST): Continue with Nephrology dr ceja Keep BP at goal Family history of cancer 08/15/202403/2025 Assessment & Plan (08/15/2024 11:15 AM EST): Sister: breast Nieces: pancreatic: X3 Father: bone cancer Niece: colon cancer Elevated glucose level 04/04/202401/15 Assessment & Plan (04/04/2024 10:36 AM EDT): Check A1c Family hx DM, Ruptured ear drum, left 06/06/2023 07/0 03/2025 Overview (06/06/2023): Has been chronic, decreased hearing Would like to see Dr Mercado Referral completed Lupus 03/03/2016 01/15/2025 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 01/15/2025 Assessment & Plan (08/15/2024 6:49 AM EST): Fu as per Hem/onc Assessment & Plan (04/24/2024 7:08 AM EDT): Fu as per Hem/onc Encounters Date Type Department Care Team Description 04/23/2025 11:10 AM EDT Office Visit [facility] [address] [place] [address] [place] [phone] Nadia Mercado MD Acute glossitis (Primary Dx); Thyroid nodule 04/23/2025 Bamboo flowsheet [facility] [address] [place] [place] [address] Nadia Mercado MD 04/23/2025 Travel 04/02/2025 11:10 AM EDT Office Visit [facility] [address] [place] [place] [address] Nadia Mercado MD Thyroid nodule (Primary Dx); Acute glossitis 04/02/2025 Telephone [facility] [address] [place] [place] [address] Nadia Mercado MD insurance won't cover rx 04/02/2025 Bamboo flowsheet [facility] [address] [place] [address] [place] [address] Nadia Mercado MD 04/02/2025 Travel 03/19/2025 Clinisync Result Encounter [facility] Department Unsolicited Nadia Mercado MD 01/21/2025 Orders Only [facility] [place] [facility] [address] [facility] [place] [phone] Stephanie Dumont NP Abdominal aortic aneurysm (AAA) without rupture, unspecified part (Primary Dx) from Last 3 Months Immunizations Immunization Administration [...] Pulse 59 04/23/2025 10:59 AM EDT Temperature 36.9 C (98.5 F) 01/15/2025 2:15 PM EDT Respiratory Rate 18 01/15/2025 2:15 PM EDT Oxygen Saturation 98% 01/15/2025 2:15 PM EDT Inhaled Oxygen Concentration - - Weight 79.8 kg (176 lb) 04/23/2025 10:59 AM EDT Height 160 cm (5' 3 ) 04/23/2025 10:59 AM EDT Body Mass Index 31.18 04/23/2025 10:59 AM EDT Plan of Treatment Upcoming Encounters Date Type Department Care Team (Late st Contact Info) Description 10/01/2025 11:10 AM EDT Office Visit [facility] [address] [facility] [address] [place] [address] Nadia Mercado MD [address] [facility] [address] [place] [address] Health Maintenance Due Date Last Done Comments CT Colonography 1950 FIT-DNA 1950 FIT 1950 FOBT 1950 Sigmoidoscopy 1950 Influenza Vaccine (#1) 2025 , 03/25/2023, 04/20/2022, Additional history exists Mammogram 04/17/2025 04/17/2024, 03/2024, 05/19/2023, Additional history exists Medicare Annual Wellness (AWV) 05/14/2025 05/14/2024 , 05/14/2024 Colonoscopy 07/25/2032 07/25/2022 Colorectal Cancer Screening 07/25/2032 Pneumococcal Vaccine: 65+ Years Completed 04/01/2019, 03/23/2018, 09/06/2016 Procedures Procedure Name Priority Date/Time Associated Diagnosis Comments US THYROID 03/19/2025 11:54 AM EDT BI MAMMOGRAM SCREENING TOMOSYNTHESIS BILATERAL 04/17/2024 10:46 AM EDT from Last 3 Months or Most Recently Relevant to Health Maintenance Results * US thyroid (03/19/2025 11:54 AM EDT) Anatomical Region Laterality Modality Head, Neck Ultrasound 03/19/2025 11:5 4 AM EDT Narrative 03/19/2025 11:56 AM EDT The [address] [address] Ultrasound Report Signed Patient: JASPREET LEO MR#: [id number] : 1950 Acct:[id number] Age/Sex: 74 / F ADM Date: 03/19/25 Loc: US Attending Dr: Nadia Mercado M.D. Ordering Physician: Nadia Mercado M.D. Date of Service: 03/19/25 Procedure(s): US thyroid Accession Number(s): [id number] cc: Stephanie Dumont QUILTER FIXER; Nadia Mercado M.D. [place] [address] Patient Name: JASPREET LEO MRN: [id number] date: 1950 Sex: F Assigned Patient Location: US Current Patient Location: US Accession/Order Number: [id number] Exam Date: 03/19/2025 11:12 Report Date: 03/19/2025 11:54 At the request of: NADIA MERCADO MD Procedure: US thyroid THYROID ULTRASOUND CLINICAL DATA: Follow-up thyroid nodularity COMPARISON: 09/23/2024 The right thyroid lobe measures 4.4 x 2.0 x 1.8 cm. The left lobe measures 4.0 x 1.5 x 1.5 cm. The isthmus measures 2 mm. Thyroid echotexture is heterogeneous. At the superior pole on the right, there is redemonstration of a heterogeneous nodule measuring 13 x 9 x 11 mm. These measurements are smaller than on the prior. Inferior to it, there is a second heterogeneous nodule measuring 2.2 x 1.6 x 1.9 cm. The longitudinal measurement is slightly larger though this may be related to difference in slice selection since there are other images where the longitudinal measurement is just over 2 cm. Both of these thyroid nodules are TI-RADS 3. There is a hypoechoic nodule at the inferior pole measuring 6 x 4 x 8 mm (TI-RADS 4). This is not definitely seen on the comparison images. On the left, there is a colloid cyst at the superior pole measuring 6 x 4 x 7 mm. A heterogeneous nodule is again visualized at the midpole measuring 2.2 x 12 x 14 mm (TI-RADS 3). This has not significantly changed. US/US thyroid IMPRESSION: SIMILAR APPEARANCE OF THYROID NODULARITY DOCUMENTED PREVIOUSLY. POSSIBLE NEW SUBCENTIMETER HYPOECHOIC NODULE ON THE RIGHT. Impression dictated by: Doris Savage M.D. 03/19/2025 11:54 AM Dictation Location: [place] [address] Electronically authenticated by: [id number] Y Date: 03/19/2025 11:54 Dictated By: Doris Savage M.D. Signed By: 03/19/25 1156 DD/ 1154 TD/TT: Custom Feed Mill Operator: Procedure Note Radiology, Radiologist, MD - 03/19/2025 [place] [address] Ultrasound Report Signed Patient: JASPREET LEO ZMR#: [id number] : 1950cct:[id number] Age/Sex: 74 / FADM Date: 03/19/25 Loc: US Attending Dr: Nadia Mercado M.D. Ordering Physician: Nadia Mercado M.D. Date of Service: 03/19/25 Procedure(s): US thyroid Accession Number(s): [id number] cc: Stephanie Dumont QUILTER FIXER; Nadia Mercado M.D. The [address] [address] Patient Name: JASPREET ELO MRN: [id number] date: 1950 Sex: F Assigned Patient Location: US Current Patient Location: US Accession/Order Number: [id number] Exam Date: 03/19/2025 11:12 Report Date: 03/19/2025 11:54 At the request of: NADIA MERCADO MD Procedure: US thyroid THYROID ULTRASOUND CLINICAL DATA: Follow-up thyroid nodularity COMPARISON: 09/23/2024 The right thyroid lobe measures 4.4 x 2.0 x 1.8 cm. The left lobemeasures 4.0 x 1.5 x 1.5 cm. The isthmus measures 2 mm. Thyroid echotexture is heterogeneous. At the superior pole on the right, there isredemonstration of a heterogeneous nodule measuring 13 x 9 x 11 mm. These measurements are smaller than on the prior. Inferior to it, there is a secondheterogeneous nodule measuring 2.2 x 1.6 x 1.9 cm. The longitudinal measurement isslightly larger though this may be related to difference in slice selection sincethere are other images where the longitudinal measurement is just over 2 cm.Both of these thyroid nodules are TI-RADS 3. There is a hypoechoic nodule atthe inferior pole measuring 6 x 4 x 8 mm (TI-RADS 4). This is not definitelyseen on the comparison images. On the left, there is a colloid cyst at the superior pole measuring 6 x 4x 7 mm. A heterogeneous nodule is again visualized at the midpole measuring2.2 x 12 x 14 mm (TI-RADS 3). This has not significantly changed. US/US thyroid IMPRESSION: SIMILAR APPEARANCE OF THYROID NODULARITY DOCUMENTED PREVIOUSLY. POSSIBLE NEW SUBCENTIMETER HYPOECHOIC NODULE ON THE RIGHT. Impression dictated by: Doris Savage M.D. 03/19/2025 11:54 AM Dictation Location: [place] [address] Electronically authenticated by: [id number] Y Date: 1:54 Dictated By: Doris Savage M.D. Signed By:03/19/25 1156 DD/ 1154 TD/TT: Custom Feed Mill Operator: us Nadia Mercado MD IMG US PROCEDURES Final Resul t * Bilateral screening mammogram with tomosynthesis (04/17/2024 10:46 AM EDT) Anatomical Region Laterality Modality Breast Bilateral Mammography 04/17/2024 10:4 6 AM EDT Narrative 04/17/2024 10:45 AM EDT THIS EXAM WAS PERFORMED AT [facility] 1950 [id number] EXAM: MAMM SCREENING BILATERAL W CAD, 04/17/2024 [...] 10:45 AM 1 c MAMM 1 YR [facility] Accredited Performing Facility: [facility] Mammography/DEXA Imaging [address] [place] [address] Procedure Note Radiology, Radiologist, MD - 04/17/2024 THIS EXAM WAS PERFORMED AT [facility] 1950 [id number] EXAM: MAMM SCREENING BILATERAL W CAD, 04/17/2024 [...] 10:45 AM 1 c MAMM 1 YR [facility] Accredited Performing Facility: [facility] - Mammography/DEXA Imaging [address] [place] [address] Stephanie Dumont NP IMG BI PROCEDURES Final Result from Last 3 Months or Most Recently Relevant to Health Maintenance Insurance [employer] MEDICARE Care Teams Hard Tile Setter Apprentice Relationship Specialty Start Date End Date Stephanie Dumont NP [address] [place] [phone] PCP - [facility] 10/09/23 12/07/70 Wilfred Polanco MD [address] [place] [address] PCP - General Family Medicine 03/27/25 Stephanie Dumont NP [address] [place] [phone] Nurse Practitioner Family Medicine 03/27/25
--- OUTSIDE RECORDS SUMMARY | 2025-04-23 12:01 | XMS_ITS | Encounter Summary ---
Author Organization [facility] Address [address] [facility] [place] [address] Care Team Providers Care Cost Control Supervisor Name Role Phone Stephanie Dumont BODY WORK AUTO TRIMMER Unavailable [phone] Wilferd Polanco MD Primary Care Provider Stephanie Dumont BODY WORK AUTO TRIMMER Unavailable [phone] Wilfred Polanco MD Primary Care Provider Wilfred Polanco MD Primary Care Provider Stephanie Dumont NP Unavailable [phone] Encounter Details Date Type Department Care Team (Late Contact Info) Description 11/27/2023 Orders Only [facility] [address] [place] [address] Stephanie Dumont, BODY WORK AUTO TRIMMER [address] [place] [address] Social History Tobacco Use Types Packs/Day Years [...] 10/01/2025 11:10 AM EDT Office Visit [facility] [address] [place] [address] [place] [address] Nadia Mercado MD [address] [place] [address] documented as of this encounter Procedures Procedure Name Priority Date/Time Associated Diagnosis Comments MISCELLANEOUS LAB TEST Routine 11/24/2023 8:28 AM EDT documented in this encounter Results * - Miscellaneous Test (11/24/2023 8:28 AM EDT) Stephanie Dumont BODY WORK AUTO TRIMMER LAB BLOOD ORDERABLES Final Resu lt documented in this encounter Visit Diagnoses Not on filedocumented in this encounter Care Teams Cost Control Supervisor Relationship Specialty Start Date End Date Wilfred Polanco MD PCP - General Family Medicine 08/17/23 04/23/24 Stephanie Dumont NP [address] [place] [address] PCP - [facility] 10/09/23 12/07/70 Wilfred Polanco MD PCP - General Family Medicine 05/13/24 03/26/25 Wilfred Polanco MD [address] [place] [address] PCP - General Family Medicine 03/27/25 Stephanie Dumont NP Nurse Practitioner Family Medicine 04/09/23 03/26/25 Stephanie Dumont NP [address] [place] [address] Nurse Practitioner Family Medicine 03/27/25 documented as of this encounter
--- OUTSIDE RECORDS SUMMARY | 2025-04-23 12:01 | XMS_ITS | Encounter Summary ---
Author Organization [facility] Address [address] [facility] [place] [address] Care Team Providers Care Industrial Design Intern Name Role Phone Stephanie Dumont MANAGER BUSINESS PROCESS Unavailable [phone] Wilfred Polanco MD Primary Care Provider Stephanie Dumont MANAGER BUSINESS PROCESS Unavailable [phone] Wilfred Polanco MD Primary Care Provider Wilfred Polanco MD Primary Care Provider Stephanie Dumont NP Unavailable [phone] Encounter Details Date Type Department Care Team (Late Contact Info) Description 04/04/2024 Orders Only [facility] [address] [place] [address] Stephanie Dumont MANAGER BUSINESS PROCESS [address] [place] [address] Social History Tobacco Use Types Packs/Day Years [...] [facility] [address] [place] [address] Nadia Mercado MD [address] [place] [address] documented as of this encounter Procedures Procedure Name Priority Date/Time Associated Diagnosis Comments US THYROID Routine 04/04/2024 1:39 PM EDT documented in this encounter Results * US thyroid (04/04/2024 1:39 PM EDT) Anatomical Region Laterality Modality Head, Neck Ultrasound us Stephanie Dumont NP IMG US PROCEDURES Final Result documented in this encounter Visit Diagnoses Not on filedocumented in this encounter Care Teams Industrial Design Intern Relationship Specialty Start Date End Date Wilfred Polanco MD PCP - General Family Medicine 08/17/23 04/23/24 Stephanie Dumont NP [address] [place] [phone] PCP - [facility] 10/09/23 12/07/70 Wilfred Polanco MD PCP - General Family Medicine 05/13/24 03/26/25 Wilfred Polanco MD [address] [place] [address] PCP - General Family Medicine 03/27/25 Stephanie Dumont NP Nurse Practitioner Family Medicine 04/09/23 03/26/25 Stephanie Dumont NP [address] [place] [address] Nurse Practitioner Family Medicine 03/27/25 documented as of this encounter
--- OUTSIDE RECORDS SUMMARY | 2025-04-23 12:01 | XMS_ITS | Encounter Summary ---
Author Organization [facility] Address [address] [place] [address] Care Team Providers Care Kick Press Setter Name Role Phone Stephanie Dumont SCHEME TECHNICIAN Unavailable [phone] Wilfred Polanco MD Primary Care Provider Stephanie Dumont SCHEME TECHNICIAN Unavailable [phone] Wilfred Polanco MD Primary Care Provider [phone] Wilfred Polanco MD Primary Care Provider [phone] Stephanie Dumont SCHEME TECHNICIAN Unavailable [phone] Encounter Details Date Type Department Care Team (Late Contact Info) Description 03/22/2024 Clinisync Result Encounter [facility] External Department Unsolicited Stephanie Dumont, SCHEME TECHNICIAN [address] [place] [address] Social History Tobacco Use Types Packs/Day Years [...] Date Type Department Care Team ([facility] Contact Info) Description 10/01/2025 11:10 AM EDT Office Visit [facility] [address] [facility] [address] [place] [address] Nadia Mercado MD [address] [place] [address] documented as of this encounter Procedures Procedure Name Priority Date/Time Associated Diagnosis Comments CA ECHO DOPPLER COMPLETE 03/22/2024 3:33 PM EDT documented in this encounter Results * CA ECHO DOPPLER COMPLETE (03/22/2024 3:33 PM EDT) Anatomical Region Laterality Modality Other 03/22/2024 3:33 PM EDT Narrative 03/22/2024 3:35 PM EDT [address] [address] Cardiology Report Signed Patient: JASPREET LEO MR#: [id number] : 1950 Acct:[id number] Age/Sex: 73 / F ADM Date: 03/22/24 Loc: CARD Attending Dr: Stephanie Dumont NP Ordering Physician: Stephanie Dumont NP Date of Service: 03/22/24 Procedure(s): CA echo doppler complete Accession Number(s): [id number] cc: Stephanie Dumont NP Patient Name: JASPREET LEO MR#: [id number] : 1950 Exam Date: 03/22/2024 Ordering Doctor: [...] Signed By: 03/22/24 1535 DD/ 1533 TD/TT: Ward Aide: Procedure Note Radiology, Radiologist, MD - 03/22/2024 [place] [address] Cardiology Report Signed Patient: JASPREET LEO ZMR#: [id number] : 1950cct:[id number] Age/Sex: 73 / FADM Date: 03/22/24 Loc: CARD Attending Dr: Stephanie Dumont NP Ordering Physician: Stephanie Dumont NP Date of Service: 03/22/24 Procedure(s): CA echo doppler complete Accession Number(s): [id number] cc: Stephanie Dumont NP Patient Name: JASPREET LEO MR#: [id number] : 1950 Exam Date: 03/22/2024 Ordering Doctor: [...] M.D. Signed By:03/22/24 1535 DD/ 1533 TD/TT: Ward Aide: us Stephanie Dumont NP [facility]AG[facility] Final Result documented in this encounter Visit Diagnoses Not on filedocumented in this encounter Care Teams Kick Press Setter Relationship Specialty Start Date End Date Wilfred Polanco MD PCP - General Family Medicine 08/17/23 04/23/24 Stephanie Dumont NP [address] [place] [address] PCP - [facility] 10/09/23 12/07/70 Wilfred Polanco MD PCP - General Family Medicine 05/13/24 03/26/25 Wilfred Polanco MD [address] [place] [id number] PCP - General Family Medicine 03/27/25 Stephanie Dumont NP Nurse Practitioner Family Medicine 04/09/23 03/26/25 Stephanie Dumont NP [address] [place] [address] Nurse Practitioner Family Medicine 03/27/25 documented as of this encounter
--- OUTSIDE RECORDS SUMMARY | 2025-04-23 12:01 | XMS_ITS | Encounter Summary ---
Author Organization [facility] Address [address] [place] [address] Care Team Providers Care Aircraft Lay Out Worker Name Role Phone Stephanie Dumont TELECOMMUNICATIONS FIELD TECHNICIAN Unavailable [phone] Wilfred Polanco MD Primary Care Provider [phone] Stephanie Dumont TELECOMMUNICATIONS FIELD TECHNICIAN Unavailable [phone] Wilfred Polanco MD Primary Care Provider [phone] Wilfred Polanco MD Primary Care Provider [phone] Stephanie Dumont NP Unavailable [phone] Encounter Details Date Type Department Care Team (Late st Contact Info) Description 09/11/2023 Clinisync Result Encounter [...] EDT Office Visit [facility] [address] [facility] [address] [place] [address] Nadia Mercado MD [address] [facility] 130 [place] [address] documented as of this encounter Procedures Procedure [...] CLINISYNC F inal Result Performing Organization Address [facility] Co de Phone Number CLINROZNC [facility] * [facility] URINE T PROTEIN CREAT RATIO (09/11/2023 12:31 PM EST) TOTAL PROTEIN URINE RANDOM <6.0 <=11.9 mg/dL TBH CREATININE URINE RANDOM 26.05 20.00 - 300.00 mg/dL TBH PROTEIN CREATININE RATIO URINE 0.23 TBH 09/11/2023 12:3 1 PM EST 09/11/2023 1:13 PM EST Narrative CLINISYNC - 09/11/2023 1:13 PM EST Generic External Data Provider CLINISYNC F inal Result Performing Organization Address [facility] de Phone Number DEREKNC TB[facility] * HMHP PTH, INTRAOPERATIVE (09/11/2023 12:27 PM EST) PTH, INTACT 38 15 - 65 pg/mL TBH Comment: Performed at: [address] [id number] Flatbed Press Operator: Danilo Garrett PhD, Phone: [phone] 09/11/2023 12:2 7 PM EST 09/11/2023 12:31 PM EST Narrative CLINISYNC - 09/12/2023 11:09 AM EST Generic External Data Provider CLINISYNC F inal Result Performing Organization Address [facility] Co de Phone Number CLINROZNC [facility] * TBH VITAMIN D 25 [place] (09/11/2023 12:27 PM EST) VITAMIN D 27.9 ng/mL TB Comment: <20 ng/mL Vit D deficient 20-<30 ng/mL Vit D insufficient 30-100 ng/mL Vit D sufficient >100 ng/mL Potential Toxicity 09/11/2023 12:2 7 PM EST 09/11/2023 12:31 PM EST Narrative CLINISYNC - 09/11/2023 1:57 PM EST Generic External Data Provider CLINISYNC F inal Result Performing Organization Address [facility] Co de Phone Number [facility] * [facility] FERRITIN (09/11/2023 12:27 PM EST) FERRITIN 80.0 8.0 - 252.0 ng/mL TB 09/11/2023 12:2 7 PM EST 09/11/2023 12:31 PM EST Narrative CLINISYNC - 09/11/2023 1:57 PM EST Generic External Data Provider CLINISYNC F inal Result Performing Organization Address [facility] Co de Phone Number [facility] * METRO IRON AND TIBC (09/11/2023 12:27 PM EST) TBH IRON 71.0 50.0 - 170.0 ug/dL TBH TBH TOTAL IRON BINDING CAPACITY 348.0 250.0 - 450.0 ug/dL TB TB PERCENT IRON SATURATION 20.4 % TB 09/11/2023 12:2 7 PM EST 09/11/2023 12:31 PM EST Narrative CLINISYNC - 09/11/2023 1:22 PM EST Generic External Data Provider CLINISYNC F ina Result Performing Organization Address [facility] Co de Phone Number CLINISYNC TB * ALL MAGNESIUM (09/11/2023 12:27 PM EST) MAGNESIUM 2.1 1.8 - 2.4 mg/dL TBH 09/11/2023 12:2 7 PM EST 09/11/2023 12:31 PM EST Narrative CLINISYNC - 09/11/2023 12:54 PM EST Generic External Data Provider CLINISYNC F inal Result CLINISYNC TB * ALL URIC ACID (09/11/2023 12:27 PM EST) URIC ACID 5.8 2.6 - 6.0 mg/dL TB 09/11/2023 12:2 7 PM EST 09/11/2023 12:31 PM EST Narrative CLINISYNC - 09/11/2023 12:54 PM EST Generic External Data Provider CLINISYNC F inal Result Performing Organization Address City/[facility] Co de Phone Number CLINISYNC TB * (ABNORMAL) ALL RENAL FUNCTION PANEL (09/11/2023 12:27 PM EST) SODIUM 137 136 - 145 mmol/L TBH POTASSIUM 4.4 3.5 - 5.1 mmol/L TBH CHLORIDE 102 98 - 107 mmol/L TBH CARBON DIOXIDE 27.5 21.0 - 32.0 mmol/L TBH ANION GAP 11.9 TBH GLUCOSE 92 74 - 106 mg/dL TBH BLOOD UREA NITROGEN 26.0(H) 7.0 - 18.0 mg/dL TBH CREATININE 1.09(H) 0.55 - 1.02 mg/dL TBH TBH EGFR-AF TANZANIAN 60 >=60 TBH TBH EGFR-NON AF TANZANIAN 49(L) >=60 TBH BUN CREATININE RATIO 23.9 TBH CALCIUM 8.6 8.5 - 10.1 mg/dL TBH PHOSPHORUS 3.0 2.6 - 4.7 mg/dL TBH ALBUMIN LEVEL 3.1(L) 3.4 - 5.0 g/dL TBH 09/11/2023 12:2 7 PM EST 09/11/2023 12:31 PM EST Narrative CLINISYNC - 09/11/2023 12:54 PM EST Generic External Data Provider CLINISYNC Rosendo inal Result Performing Organization Address City/State/[facility] Co de Phone Number [facility] * (ABNORMAL) [facility] CBC WITH PLATELET NO DIFFERENTIAL (09/11/2023 12:27 PM EST) TBH WBC 5.1 4.0 - 11.0 10 3/uL [...] Narrative CLINISYNC - 09/11/2023 12:53 PM EST Generic External Data Provider JULIAN Rosendo prabhuyovanny Result [facility] * US RENAL BI (09/11/2023 12:18 PM EST) Anatomical Region Laterality Modality Other 09/11/2023 12:1 8 PM EST Narrative 09/11/2023 12:21 PM EST [address] [address] Ultrasound Report Signed Patient: JASPREET LEO MR#: [id number] : 1950 Acct:[id number] Age/Sex: 72 / F ADM Date: 09/11/23 Loc: US Attending Dr: CATALINA ARRIOLA Ordering Physician: CATALINA ARRIOLA Date of Service: 09/11/23 Procedure(s): US renal BI Accession Number(s): [id number] cc: Shaikh Catrina Biswas; CATALINA ARRIOLA [place] [address] Patient Name: JASPREET LEO MRN: [facility]:[id number] date: 1950 Sex: F Assigned Patient Location: US Current Patient Location: US Accession/Order Number: [id number] Exam Date: 09/11/2023 11:30 Report Date: 09/11/2023 [...] Signed By: 09/11/23 1221 DD/ 1218 TD/TT: Garden Machinery Mechanic: Procedure Note Radiology, Radiologist, - 09/11/2023 [place] [address] Ultrasound Report Signed Patient: JASPREET LEO ZMR#: [id number] : 1950cct:[id number] Age/Sex: 72 / FADM Date: 09/11/23 Loc: US Attending Dr: CATALINA ARRIOLA Ordering Physician: CATALINA ARRIOLA Date of Service: 09/11/23 Procedure(s): US renal BI Accession Number(s): [id number] cc: Shaikh Catrina Biswas; CATALINA ARRIOLA [place] [address] Patient Name: JASPREET LEO MRN: [facility]:[id number] date: 1950 Sex: F Assigned Patient Location: US Current Patient Location: US Accession/Order Number: [id number] Exam Date: 09/11/2023 11:30 Report Date: 09/11/2023 [...] M.D. Signed By:09/11/23 1221 DD/ 1218 TD/TT: Garden Machinery Mechanic: us Generic External Data Provider [facility] Final Result documented in this encounter Visit Diagnoses Not on filedocumented in this encounter Care Teams Aircraft Lay Out Worker Relationship Specialty Start Date End Date Wilfred Polanco MD PCP - General Family Medicine 08/17/23 04/23/24 Stephanie Dumont NP [address] [place] [address] PCP - [facility] 10/09/23 12/07/70 Wilfred Polanoc MD PCP - General Family Medicine 05/13/24 03/26/25 Wilfred Polanco MD [address] [place] [address] PCP - General Family Medicine 03/27/25 Stephanie Dumont NP Nurse Practitioner Family Medicine 04/09/23 03/26/25 Stephanie Dumont NP [address] [place] [address] Nurse Practitioner Family Medicine 03/27/25 documented as of this encounter
--- OUTSIDE RECORDS SUMMARY | 2025-04-23 12:01 | XMS_ITS | Encounter Summary ---
Author Organization [facility] Address [address] [place] [address] Care Team Providers Care Sergeant Of Corrections Name Role Phone Stephanie Dumont JET PILOT Unavailable [phone] Wilfred Polanco MD Primary Care Provider Stephanie Dumont JET PILOT Unavailable [phone] Wilfred Polanco MD Primary Care Provider [phone] Wilfred Polanco MD Primary Care Provider [phone] Stephanie Dumont JET PILOT Unavailable [phone] Encounter Details Date Type Department Care Team (Late Contact Info) Description 04/04/2024 Clinisync Result Encounter [facility] External Department Unsolicited Stephanie Dumont, JET PILOT [address] [place] [address] Social History Tobacco Use Types Packs/Day Years [...] Upcoming Encounters Date Type Department Care Team ([facility] Contact Info) Description 10/01/2025 11:10 AM EDT Office Visit [facility] 112 [facility] 130 [place] [address] Nadia Mercado MD [address] [place] [address] documented as of this encounter Procedures Procedure Name Priority Date/Time Associated Diagnosis Comments US THYROID 04/04/2024 1:26 PM EDT documented in this encounter Results * US thyroid (04/04/2024 1:26 PM EDT) Anatomical Region Laterality Modality Head, Neck Ultrasound 04/04/2024 1:26 PM EDT Narrative 04/04/2024 1:28 PM EDT [address] [address] Ultrasound Report Signed Patient: JASPREET LEO MR#: [id number] : 1950 Acct:[id number] Age/Sex: 73 / F ADM Date: 04/03/24 Loc: US Attending Dr: Stephanie Dumont JET PILOT Ordering Physician: Stephanie Dumont NP Date of Service: 04/03/24 Procedure(s): US thyroid Accession Number(s): [id number] cc: Stephanie Dumont NP [address] [address] Patient Name: JASPREET LEO MRN: [facility]:[id number] date: 1950 Sex: F Assigned Patient Location: US Current Patient Location: Accession/Order Number: [id number] Exam Date: 04/03/2024 10:02 Report Date: 04/04/2024 [...] Dictated By: Simon Zuniga M.D. Signed By: 04/04/248 DD/ 25 TD/TT: Jewel Blocker And Sawyer: Procedure Note Radiology, Radiologist, MD - 04/04/2024 [place] [address] Ultrasound Report Signed Patient: JASPREET LEO ZMR#: [id number] : 1950cct:[id number] Age/Sex: 73 / FADM Date: 04/03/24 Loc: US Attending Dr: Stephanie Dumont NP Ordering Physician: Stephanie Dumont NP Date of Service: 04/03/24 Procedure(s): US thyroid Accession Number(s): [id number] cc: Stephanie Dumont NP [place] [id number] Patient Name: JASPREET LEO MRN: [facility]:[id number] date: 1950 Sex: F Assigned Patient Location: US Current Patient Location: Accession/Order Number: [id number] Exam Date: 04/03/2024 10:02 Report Date: 04/04/2024 [...] M.D. Signed By:04/04/24 1328 DD/ 1326 TD/TT: Jewel Blocker And Sawyer: us Stephanie Dumont NP IMG US PROCEDURES Final Result documented in this encounter Visit Diagnoses Not on filedocumented in this encounter Care Teams Sergeant Of Corrections Relationship Specialty Start Date End Date Wilfred Polanco MD PCP - General Family Medicine 08/17/23 04/23/24 Stephanie Dumont NP [address] [place] [address] PCP - [facility] 10/09/23 12/07/70 Wilfred Polanco MD PCP - General Family Medicine 05/13/24 03/26/25 Wilfred Polanco MD [address] [place] [address] PCP - General Family Medicine 03/27/25 Stephanie Dumont NP Nurse Practitioner Family Medicine 04/09/23 03/26/25 Stephanie Dumont NP [address] [place] [address] Nurse Practitioner Family Medicine 03/27/25 documented as of this encounter
--- OUTSIDE RECORDS SUMMARY | 2025-04-23 12:01 | XMS_ITS | Encounter Summary ---
Author Organization [facility] Address [address] [facility] [place] [address] Care Team Providers Care Hydro Pneumatic Tester Name Role Phone Stephanie Dumont COURT MONITOR Unavailable [phone] Wilfred Polanco MD Primary Care Provider Stephanie Dumont COURT MONITOR Unavailable [phone] Wilfred Polanco MD Primary Care Provider Wilfred Polanco MD Primary Care Provider Stephanie Dumont COURT MONITOR Unavailable [phone] Encounter Details Date Type Department Care Team (Late Contact Info) Description 11/29/2023 Orders Only [facility] [address] [place] [address] Shaikh Biswas MD [address] [place] [address] Social History Tobacco Use Types Packs/Day Years [...] Visit [facility] [facility] [address] [place] [address] [place] [address] Nadia Mercado MD [address] [facility] [address] [place] [address] documented as of this encounter Procedures Procedure [...] on filedocumented in this encounter Care Teams Hydro Pneumatic Tester Relationship Specialty Start Date End Date Wilfred Polanco MD PCP - General Family Medicine 08/17/23 04/23/24 Stephanie Dumont NP [address] [place] [address] PCP - [facility] 10/09/23 12/07/70 Wilfred Polanco MD PCP - General Family Medicine 05/13/24 03/26/25 Wilfred Polanco MD [address] [place] [address] PCP - General Family Medicine 03/27/25 Stephanie Dumont NP Nurse Practitioner Family Medicine 04/09/23 03/26/25 Stephanie Dumont NP [address] [place] [address] Nurse Practitioner Family Medicine 03/27/25 documented as of this encounter
--- OUTSIDE RECORDS SUMMARY | 2025-04-23 12:11 | XMS_ITS | CCD ---
Author Organization [facility] Care Team Providers Care Carriage Dogger Name Role Phone COTY WRIGHT Unavailable Unavailable COTY WRIGHT Unavailable Unavailable VANCE SCHERER Unavailable Unavailable VANCE SCHERER Unavailable Unavailable Unavailable Primary Care Provider Unavailaudrey e Paloma Saldaña Primary Care Provider Gilson Arriola Unavailable Unavailable Primary Care Provider Unavailabl e Unavailable Primary Care Provider UnavailMD Gilson Galvez Attending Provider NON STAFF Primary Care Provider Unavailabl e True JAIMES, Primary Care Provider Aichrichi, Stephanie Primary Care Provider Aichholruben HEALTH INFORMATION MANAGERS, Stephanie Unavailable Wilfred Polanco MD Primary Care Provider Wilfred Polanco MD Primary Care Provider Unavailable Primary Care Provider Unavailabl e Aichholruben, Stephanie Primary Care Provider [phone] Aichholruben, Stephanie Primary Care Provider Unavailabl e Aichholz HE[employer] INFORMATION MANAGERS, Stephanie Unavailable Aichholruben HEALTH INFORMATION MANAGERS, Stephanie Unavailable MD Simon Zuniga Attending Provider [phone] Unallocated MD, Noms Provider Primary Care Provi gabriela Simon Zuniga Attending Unavailable Simon Zuniga Admitting Unavailable Gilson Arriola Attending Unavailable Gilson Arriola Admitting Unavailable Wilfred Polanco MD Primary Care Provider [phone] DOUG MORRELL Referring Unavailable DOUG MORRELL Attending Unavailable HERSON AVALOS Referring Unavailable MASSIEL BALLARD Attending Unavailable RODNEY GUILLEN Attending Unavailable Unavailable Primary Care Provider UnavailEMANI Aguirre Attending UnavailSUSANNA Aguila Attending Unavailable SUSANNA GRAF Attending Unavailable TIM, STEPHANIE Negrtee Referring Unavailable AICHHOLZ, STEPHANIE J Primary Care Unavailable AICHHOLZ, STEPHANIE J Referring Unavailable AICHHOLZ, STEPHANIE J Primary Care Unavailable BLAISE ALEX Referring Unavailable AICHHOLZ, STEPHANIE J Primary Care Unavailable AICHHOLZ, STEPHANIE J Referring Unavailable AICHHOLZ, STEPHANIE J Primary Care Unavailable BLAISE ALEX Attending Unavailable BLAISE ALEX Referring Unavailable AICHHOLZ, STEPHANIE Negrete Primary Care Unavailable BLAISE ALEX Attending Unavailable BLAISE ALEX Referring Unavailable AICHHOLZ, STEPHANIE J Primary Care Unavailable TYLER, BLAISE Negrete Attending Unavailable BLAISE ALEX Referring Unavailable AICHHOLZ, STEPHANIE J Primary Care Unavailable AICHHOLZ, STEPHANIE J Referring Unavailable AICHHOLZ, STEPHANIE J Primary Care Unavailable AICHHOLZ, STEPHANIE J Referring Unavailable AICHHOLZ, STEPHANIE J Primary Care Unavailable AICHHOLZ, STEPHANIE J Referring Unavailable AICHHOLZ, STEPHANIE J Primary Care Unavailable MASSIEL BALLARD JR Referring Unavai lable AICHHOLZ, STEPHANIE Negrete Primary Care Unavailable MASSIEL BALLARD JR Referring Unavai lable AICHHOLZ, STEPHANIE J Primary Care Unavailable GILSON ARRIOLA Referring Unavailable AICHRICHI, STEPHANIE Negrete Primary Care Unavailable SUSANNA GRAF Referring Unavailable AICHHOLZ, STEPHANIE J Primary Care Unavailable SUSANNA GRAF Referring Unavailable AICHHOLZ, STEPHANIE J Primary Care Unavailable Gilson Arriola MD Attending Provider Stephanie Dumont Primary Care Provider [phone] Rinku Ramsey MD Unavailable Tim DELINQUENCY PREVENTION SOCIAL WORKER-Stephanie CHOI Primary Care Provider Stephanie Dumont Attending Provider [phone] Tim HEALTH INFORMATION MANAGERS, Stephanie Unavailable Tim HEALTH INFORMATION MANAGERS, Stephanie Unavailable Wilfred Polanco MD Primary Care Provider SUSANNA GRAF Admitting Unavailable SUSANNA GRAF Attending Unavailable AICHHOLZSTEPHANIE OPAL Primary Care Unavailable Sherri JAIMES, Wilfred Primary Care Provider Aicradames HEALTH INFORMATION MANAGERS, Stephanie Unavailable TIM, STEPHANIE Attending Unavailable TIMMISMAR Attending Unavailable AICHHOLZ, STEPHANIE Attending Unavailable AICHHOLZ, STEPHANIE Attending Unavailable AICHHOLZ, STEPHANIE Attending Unavailable TIMMAR KRAUSE Attending Unavailable AICHHOLZ, STEPHANIE Attending Unavailable BLAISE ALEX Referring Unavailable TYLER, BLAISE Negrete Attending Unavailable AICHHOLZ, STEPHANIE Referring Unavailable AICHHOLZ, STEPHANIE Attending Unavailable JR. DANUTA, HERSON Ramires Attending Unavaila katie AVALOS JR., HERSON Raimres Referring Unavaila ble TIM, STEPHANIE Attending Unavailable TIMMIMAR Hancock Attending Unavailable AICHHOLZ, STEPHANIE Referring Unavailable ABHYANKAR, RINKU Referring Unavailable ABHYANKAR, [...] RINKU Referring Unavailable ABHYANKAR, RINKU Referring Unavailable HONGLI Attending Unavailable ABHYANKAR, RINKU Referring Unavailable ABHYANKAR, RINKU Referring Unavailable HONG, LI Attending Unavailable ABHYANKAR, RINKU Referring Unavailable ABHYANKAR, RINKU Referring Unavailable JAYDEN CONNELLY Referring Unavailable JAYDEN CONNELLY Referring Unavailable ABHYANKAR, RINKU Referring Unavailable HONG, [...] [CODEINE PHOSPHATE] Drug Allergy 05-20-20 09 [facility] (1 source) codeine; Translations: [CODEINE SULFATE] Drug Allergy 05-20-20 09 [facility] (1 source) VANCOMYCIN AND DERIVATIVES; Translations: [VANCOMYCIN AND DERIVATIVES] Propensity to adverse reactions (disorder) 05-20-20 09 [facility] (20 sources) Vancomycin; Translations: [VANCOMYCIN] Drug Allergy 03-03-20 16 Unknown, Other [facility] (8 sources) Tetanus Vaccines And Toxoid; Translations: [TETANUS VACCINES AND TOXOID] Drug Allergy 03-03-20 16 Unknown [facility] (1 source) Tetanus vaccine Drug allergy Unknown [facility] Other (20 sources) Tetanus Vaccines And Toxoid Drug Allergy 03-03-20 16 Unknown [facility] (4 sources) Tetanus vaccine Drug allergy Unknown [facility] Other (20 sources) Tetanus-Diphth- Acell Pertussis Drug Intolerance 06-06-20 23 Rash [facility] (20 sources) Diphtheria,Pert ussis (Acellular),Tet anus Vaccine; Translations: [DIPHTHERIA,PER TUSSIS (ACELLULAR),TET ANUS VACCINE] Propensity to adverse reactions 06-06-20 23 [facility] (5 sources) tetanus toxoid, adsorbed; Translations: [tetanus toxoid, adsorbed] Allergy to substance 09-20-19 Unknown Reaction [facility] (1 source) Vancomycin Drug Allergy 09-20-19 [facility] Medications Current Medications Medication Drug [...] (1 source) beta2-Adrenergic Agonist Start: 02-05-2025 2.5 mg, nebulization, Once as needed, wheezing, Starting on Mon02/05/25 at 1418, For 1 dose, Recovery (only) alendronic acid 70 mg oral tablet (20 sources) Bisphosphonate Start: 06-06-2023 End: 03-26-2025 take 1 tablet by mouth in the morning alendronate (Fosamax) 70 MG tablet Indications: Age-related osteoporosis without current pathological fracture Take 1 tablet (70 mg) by mouth every 7 (seven) days Take in the morning with a full glass of water, on an empty stomach, and do not take anything else by mouth or lie down for the next 30 min. 12 tablet 1 01/01/2025 Active Start: 06-06-2023 alendronate (F OSAMAX) 70 mg [...] A WEEK; Note: Source Status: Taking; Provider: Tyrel Riggins ( ) Comment on above: PLEASE SEE ATTACHED FOR DETAILED DIRECTIONS benzonatate 100 mg oral capsule (20 sources) Non-narcotic Antitussive Start: 2 End: 5 take 1 capsule by mouth every six hours as needed benzonatate (Tessalon) 100 MG capsule Take 100 mg by mouth every 6 (six) hours if needed 07/11/2024 Active Comment on above: Take 1 capsule by [facility] every 6 hours as needed for [...] until follow up 7.5 mL 12/18/2023 Active clotrimazole 10 mg oral lozenge (1 source) Azole Antifungal Start: 04-02-2025 End: 04-12-2025 take 1 tablet by mouth five times daily clotrimazole (Mycelex) 10 MG dania Indications: Acute glossitis Take 1 tablet (10 mg) by mouth 5 (five) times a day for 10 days 50 tablet 04/02/2025 04/12/2025 Active cyclobenzaprine hydrochloride 5 mg oral tablet [...] week. 06/28/2023 Active take 1 capsule by [facility] every week ergocalciferol (Vitamin D-2) 1.25 MG (12371 UT) capsule Take 50,000 Units by mouth 1 (one) time per week Active Comment on above: Take 1 capsule by [facility] one time a week. 1 ml fentaNYL 0.05 mg/ml injection (1 source) Opioid Agonist Start: 12.5 mcg, intravenous, Every 5 min PRN, pain mild (1-3), first line, Starting on Mon02/05/25 at 1418, Recovery (only), Max total of 200 micrograms regardless of dose., If ordered PRN for pain, nurse is permitted to administer this medication for higher pain scores based on patient preference? Yes fostamatinib 100 mg oral tablet (20 sources) Start: End: take 1 tablet by mouth twice daily fostamatinib (TAVALISSE) 100 mg tablet Take 1 tablet by mouth two times a day. 60 tablet 11 04/05/2024 Active Comment on above: Take 100 mg by mouth twice daily. Take 1 tablet by darling twice daily for 15 days. Take 1 tablet by darling twice daily. Take 1 tablet by darling two times a day. hydroCHLOROthiazide 25 mg oral tablet (20 sources) Thiazide Diuretic Start: 023 End: 025 take 1 tablet by mouth once daily hydroCHLOROthiazide (HYDRODiuril) 25 MG tablet Take 25 mg by mouth Daily 01/26/2023 Active Start: 07-28-2021 End: 01-17-2022 take [...] (20 sources) Angiotensin 2 Receptor Clarke Start: End: take 2 tablets by mouth at bedtime [...] once daily. Take 2 tablets by mo ut once daily. TAKE 2 TABLETS BY MO UTH EVERY DAY Take 2 tablets by mo uth daily at bedtime. take 2 tablets by mo uth every day at bedtime methocarbamol 750 mg oral tablet (20 sources) Muscle Relaxant End: 5 methocarbamol (Robaxin) 750 MG tablet Take 750 mg by mouth in the morning and 750 mg at noon and 750 mg in the evening. 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 45 tablet 1 12/31/2024 Active Start: 03-04-2024 End: 04-03-2024 take 1 tablet by mouth once daily metoprolol succinate ER (TOPROL XL) 25 mg 24 hr tablet Take 12.5 mg by mouth once daily. 03/04/2024 Active naproxen 500 mg oral tablet (5 [...] as needed, Nausea/vomiting, second line, Starting on 12/18/23 at 1242, For 1 dose, Recovery (only) sodium bicarbonate 650 mg oral tablet (14 sources) Start: 12-27-2024 End: 04-02-2025 take 1 tablet by mouth in the morning sodium bicarbonate 650 MG tablet Take 650 mg by mouth in the morning and 650 mg before bedtime. 12/27/2024 04/02/2025 Discontinued (Therapy completed) Completed/Discontinued Medications Medication Drug Class(es) Dates Sig [...] Comment on above: Take 1 tablet by [facility] twice daily for 14 days. calcium chloride [...] REFRIGERATE docusate sodium 50 mg / sennosides, fpc 8.6 mg oral tablet (1 source) Start: [...] on above: Take 1 tablet by darling once daily. Magnesium (1 source) End: 07-16-2021 [...] TABLET BY MOUTH DAILY Start: 09-07-2022 End: 04-02-2025 take 1 tablet by mouth in the morning spironolactone (Aldactone) 25 MG tablet Take 25 mg by mouth in the morning. 09/07/2022 04/02/2025 Discontinued (Therapy completed) Comment on above: Take 25 mg by [...] Date Episodic/Chronic Acute and unspecified renal failure (14 sources) Acute renal failure syndrome; Translations: [Acute kidney failure, unspecified] Onset: 01-06-2025 01-06-2025 Episodic Aortic; peripheral; and visceral artery aneurysms (11 sources) Abdominal aortic aneurysm without rupture; Translations: [...] Coronary arteriosclerosis; Translations: [Atherosclerotic heart disease of mohegan coronary artery without angina pectoris] Onset: 02-26-2024 02-26-2024 Chronic Deficiency and other anemia (10 sources) Anemia; Translations: [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)] 11-22-2024 Chronic Deficiency and other anemia (2 sources) Anemia in chronic kidney disease; Translations: [Anemia in chronic kidney disease] Onset: 08-12-2024 Chronic Deficiency and other anemia (1 source) Deficiency and other anemia; Translations: [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)] Onset: 11-22-2024 Diseases of mouth; excluding dental (20 sources) Xerostomia; Translations: [Dry mouth, unspecified] Onset: 01-05-2017 06-06-2023 Episodic Essential hypertension (20 sources) Essential hypertension; [...] cholesteatoma, left ear] Onset: 11-22-2023 Episodic Other nervous system disorders (20 sources) [...] Chronic Other nutritional; endocrine; and metabolic disorders (3 [...] disc disorders; other back problems (20 sources) Lumbar spondylosis; Translations: [Spondylosis without myelopathy [...] glucose] Onset: 04-04-2024 Resolved: 01-15-2025 04-04-2024 Episodic Fluid and electrolyte disorders (20 sources) [...] left ear] Onset: 11-14-2023 11-14-2023 Episodic Other gastrointestinal disorders (20 sources) Diarrhea; Translations: [Diarrhea, unspecified] Onset: 04-24-2024 04-24-2024 Episodic Other lower respiratory disease (20 sources) Multiple nodules of lung; Translations: [Other nonspecific abnormal finding of lung field] Onset: 05-07-2024 Episodic Other non-traumatic joint disorders (20 sources) [...] ear] Onset: 06-29-2022 Resolved: 01-15-2025 08-16-2023 Episodic Residual codes; unclassified (20 sources) [...] CBC W Auto Differential pane l (Bld)on 04-11-2025 Basophils (Bld) [#/Vol] 10*3/uL Normal <0.[address] [facility] Comment on above: Order Comment: Speci men Type: BLOOD SPECIMENOrdering Facility: [facility] Address: [address] [place] [address] Performed By: #### 5 7021-8 ####[facility] LABCLIA [id number] [place] [address] Basophils/100 WBC (Bld) 0.4 % Normal [facility] Comment on above: Order Comment: Speci men Type: BLOOD SPECIMENOrdering Facility: [facility] Address: [address] [place] [address] Performed By: #### 5 7021-8 ####[facility] LABCLIA [id number] [place] [address] Differential cell count method Nom (Bld) Auto Normal [facility] Comment on above: Order Comment: Speci men Type: BLOOD SPECIMENOrdering Facility: [facility] Address: [address] [place] [address] Performed By: #### 5 7021-8 ####[facility] LABCLIA [id number] [place] [address] Eosinophils (Bld) [#/Vol] 0.05 10*3/uL Normal <0.46 [facility] Comment on above: Order Comment: Speci men Type: BLOOD SPECIMENOrdering Facility: [facility] Address: [address] [place] [address] Performed By: #### 5 7021-8 ####[facility] LABCLIA [id number] [place] [address] Eosinophils/100 WBC (Bld) 0.9 % Normal [facility] Comment on above: Order Comment: Speci men Type: BLOOD SPECIMENOrdering Facility: [facility] Address: [address] [place] [address] Performed By: #### 5 7021-8 ####[facility] LABCLIA [id number] [place] [address] Erythrocyte distribution width (RBC) [Ratio] 14.4 % Normal 11.5-15.0 [facility] Comment on above: Order Comment: Speci men Type: BLOOD SPECIMENOrdering Facility: [facility] Address: [address] [place] [address] Performed By: #### 5 7021-8 ####[facility] LABCLIA [id number] [place] [address] Hematocrit (Bld) [Volume fraction] 33.5 % Low 36.0-46.0 [facility] Comment on above: Order Comment: Speci men Type: BLOOD SPECIMENOrdering Facility: [facility] Address: [address] [place] [address] Performed By: #### 5 7021-8 ####[facility] LABIA [id number] [place] [address] Hemoglobin (Bld) [Mass/Vol] 10.6 g/dL Low 11.5-15.5 [facility] Comment on above: Order Comment: Speci men Type: BLOOD SPECIMENOrdering Facility: [facility] Address: [address] [place] [address] Performed By: #### 5 7021-8 ####[facility] LABCLIA [id number] [place] [address] Immature granulocytes (Bld) [#/Vol] 10*3/uL Normal <0.10 [facility] Comment on above: Order Comment: Speci men Type: BLOOD SPECIMENOrdering Facility: [facility] Address: [address] [place] [address] Performed By: #### 5 7021-8 ####[facility] LABCLIA [id number] [place] [address] Immature granulocytes/100 WBC (Bld) 0.4 % Normal [facility] Comment on above: Order Comment: Speci men Type: BLOOD SPECIMENOrdering Facility: [facility] Address: [address] [place] [address] Performed By: #### 5 7021-8 ####[facility] LABCLIA [id number] [place] [address] Lymphocytes (Bld) [#/Vol] 2.61 10*3/uL Normal 1.00-4.00 [facility] Comment on above: Order Comment: Speci men Type: BLOOD SPECIMENOrdering Facility: [facility] Address: [address] [place] [address] Performed By: #### 5 7021-8 ####[facility] LABIA [id number] [place] [address] Lymphocytes/100 WBC (Bld) 46.3 % Normal [facility] Comment on above: Order Comment: Speci men Type: BLOOD SPECIMENOrdering Facility: [facility] Address: [address] [place] [address] Performed By: #### 5 7021-8 ####[facility] LABCLIA [id number] [place] [address] MCH (RBC) [Entitic mass] 30.9 pg Normal 26.0-34.0 [facility] Comment on above: Order Comment: Speci men Type: BLOOD SPECIMENOrdering Facility: [facility] Address: [address] [place] [address] Performed By: #### 5 7021-8 ####[facility] LABIA [id number] [place] [address] MCHC (RBC) [Mass/Vol] 31.6 g/dL Normal 30.5-36.0 [facility] Comment on above: Order Comment: Speci men Type: BLOOD SPECIMENOrdering Facility: [facility] Address: [address] [place] [address] Performed By: #### 5 7021-8 ####[facility] LABCLIA [id number] [place] [address] MCV (RBC) [Entitic vol] 97.7 fL Normal 80.0-100.[address] [facility] Comment on above: Order Comment: Speci men Type: BLOOD SPECIMENOrdering Facility: [facility] Address: [address] [place] [address] Performed By: #### 5 7021-8 ####[facility] LABCLIA [id number] [place] [address] Monocytes (Bld) [#/Vol] 0.30 10*3/uL Normal <0.87 [facility] Comment on above: Order Comment: Speci men Type: BLOOD SPECIMENOrdering Facility: [facility] Address: [address] [place] [address] Performed By: #### 5 7021-8 ####[facility] LABCLIA [id number] [place] [address] Monocytes/100 WBC (Bld) 5.3 % Normal [facility] Comment on above: Order Comment: Speci men Type: BLOOD SPECIMENOrdering Facility: [facility] Address: [address] [place] [address] Performed By: #### 5 7021-8 ####[facility] LABCLIA [id number] [place] [address] Neutrophils (Bld) [#/Vol] 2.64 10*3/uL Normal 1.45-7.50 [facility] Comment on above: Order Comment: Speci men Type: BLOOD SPECIMENOrdering Facility: [facility] Address: [address] [place] [address] Performed By: #### 5 7021-8 ####[facility] LABCLIA [id number] [place] [address] Neutrophils/100 WBC (Bld) 46.7 % Normal [facility] Comment on above: Order Comment: Speci men Type: BLOOD SPECIMENOrdering Facility: [facility] Address: [address] [place] [address] Performed By: #### 5 7021-8 ####[facility] LABCLIA [id number] [place] [address] Nucleated RBC (Bld) [#/Vol] 10*3/uL Normal <0.01 [facility] Comment on above: Order Comment: Speci men Type: BLOOD SPECIMENOrdering Facility: [facility] Address: [address] [place] [address] Performed By: #### 5 7021-8 ####[facility] LABCLIA [id number] [place] [address] Nucleated RBC/100 WBC (Bld) [Ratio] 0.0 /100 WBC Normal [facility] Comment on above: Order Comment: Speci men Type: BLOOD SPECIMENOrdering Facility: [facility] Address: [address] [place] [address] Performed By: #### 5 7021-8 ####[facility] LABCLIA [id number] [place] [address] Platelet mean volume (Bld) [Entitic vol] 9.1 fL Normal 9.0-12.7 [facility] Comment on above: Order Comment: Speci men Type: BLOOD SPECIMENOrdering Facility: [facility] Address: [address] [place] [address] Performed By: #### 5 7021-8 ####[facility] LABCLIA [id number] [place] [address] Platelets (Bld) [#/Vol] 168 10*3/uL Normal 150-400 [facility] Comment on above: Order Comment: Speci men Type: BLOOD SPECIMENOrdering Facility: [facility] Address: [address] [place] [address] Performed By: #### 5 7021-8 ####[facility] LABCLIA [id number] [place] [address] RBC (Bld) [#/Vol] 3.43 10*6/uL Low 3.90-5.20 [facility] Comment on above: Order Comment: Speci men Type: BLOOD SPECIMENOrdering Facility: [facility] Address: [address] [place] [address] Performed By: #### 5 7021-8 ####[facility] LABCLIA [id number] [place] [address] WBC (Bld) [#/Vol] 5.64 10*3/uL Normal 3.70-11.00 [facility] Comment on above: Order Comment: Speci men Type: BLOOD SPECIMENOrdering Facility: [facility] Address: [address] [place] [address] Performed By: #### 5 7021-8 ####[facility] LABIA [id number] [place] [address] CBC W Auto Differential pane l (Bld)on 03-28-2025 Basophils (Bld) [#/Vol] 10*3/uL Normal <0.[address] [facility] Comment on above: Order Comment: Speci men Type: BLOOD SPECIMENOrdering Facility: [facility] Address: [address] [place] [address] Performed By: #### 5 7021-8 ####[facility] LABCLIA [id number] [place] [address] Basophils/100 WBC (Bld) 0.2 % Normal [facility] Comment on above: Order Comment: Speci men Type: BLOOD SPECIMENOrdering Facility: [facility] Address: [address] [place] [address] Performed By: #### 5 7021-8 ####[facility] LABCLIA [id number] [place] [address] Differential cell count method Nom (Bld) Auto Normal [facility] Comment on above: Order Comment: Speci men Type: BLOOD SPECIMENOrdering Facility: [facility] Address: [address] [place] [address] Performed By: #### 5 7021-8 ####[facility] LABCLIA [id number] [place] [address] Eosinophils (Bld) [#/Vol] 0.13 10*3/uL Normal <0.46 [facility] Comment on above: Order Comment: Speci men Type: BLOOD SPECIMENOrdering Facility: [facility] Address: [address] [place] [address] Performed By: #### 5 7021-8 ####[facility] LABCLIA [id number] [place] [address] Eosinophils/100 WBC (Bld) 2.6 % Normal [facility] Comment on above: Order Comment: Speci men Type: BLOOD SPECIMENOrdering Facility: [facility] Address: [address] [place] [address] Performed By: #### 5 7021-8 ####[facility] LABCLIA [id number] [place] [address] Erythrocyte distribution width (RBC) [Ratio] 13.6 % Normal 11.5-15.0 [facility] Comment on above: Order Comment: Speci men Type: BLOOD SPECIMENOrdering Facility: [facility] Address: [address] [place] [address] Performed By: #### 5 7021-8 ####[facility] LABCLIA [id number] [place] [address] Hematocrit (Bld) [Volume fraction] 33.5 % Low 36.0-46.0 [facility] Comment on above: Order Comment: Speci men Type: BLOOD SPECIMENOrdering Facility: [facility] Address: [address] [place] [address] Performed By: #### 5 7021-8 ####[facility] LABCLIA [id number] [place] [address] Hemoglobin (Bld) [Mass/Vol] 10.7 g/dL Low 11.5-15.5 [facility] Comment on above: Order Comment: Speci men Type: BLOOD SPECIMENOrdering Facility: [facility] Address: [address] [place] [address] Performed By: #### 5 7021-8 ####[facility] LABCLIA [id number] [place] [address] Immature granulocytes (Bld) [#/Vol] 10*3/uL Normal <0.10 [facility] Comment on above: Order Comment: Speci men Type: BLOOD SPECIMENOrdering Facility: [facility] Address: [address] [place] [address] Performed By: #### 5 7021-8 ####[facility] LABCLIA [id number] [place] [address] Immature granulocytes/100 WBC (Bld) 0.2 % Normal [facility] Comment on above: Order Comment: Speci men Type: BLOOD SPECIMENOrdering Facility: [facility] Address: [address] [place] [address] Performed By: #### 5 7021-8 ####[facility] LABCLIA [id number] [place] [address] Lymphocytes (Bld) [#/Vol] 1.97 10*3/uL Normal 1.00-4.00 [facility] Comment on above: Order Comment: Speci men Type: BLOOD SPECIMENOrdering Facility: [facility] Address: [address] [place] [address] Performed By: #### 5 7021-8 ####[facility] LABCLIA [id number] [place] [address] Lymphocytes/100 WBC (Bld) 39.2 % Normal [facility] Comment on above: Order Comment: Speci men Type: BLOOD SPECIMENOrdering Facility: [facility] Address: [address] [place] [address] Performed By: #### 5 7021-8 ####[facility] LABCLIA [id number] [place] [address] MCH (RBC) [Entitic mass] 31.9 pg Normal 26.0-34.0 [facility] Comment on above: Order Comment: Speci men Type: BLOOD SPECIMENOrdering Facility: [facility] Address: [address] [place] [address] Performed By: #### 5 7021-8 ####[facility] LABCLIA [id number] [place] [address] MCHC (RBC) [Mass/Vol] 31.9 g/dL Normal 30.5-36.0 [facility] Comment on above: Order Comment: Speci men Type: BLOOD SPECIMENOrdering Facility: [facility] Address: [address] [place] [address] Performed By: #### 5 7021-8 ####[facility] LABCLIA [id number] [place] [address] MCV (RBC) [Entitic vol] 100.0 fL Normal 80.0-100.[address] [facility] Comment on above: Order Comment: Speci men Type: BLOOD SPECIMENOrdering Facility: [facility] Address: [address] [place] [address] Performed By: #### 5 7021-8 ####[facility] LABCLIA [id number] [place] [address] Monocytes (Bld) [#/Vol] 0.31 10*3/uL Normal <0.87 [facility] Comment on above: Order Comment: Speci men Type: BLOOD SPECIMENOrdering Facility: [facility] Address: [address] [place] [address] Performed By: #### 5 7021-8 ####[facility] LABCLIA [id number] [place] [address] Monocytes/100 WBC (Bld) 6.2 % Normal [facility] Comment on above: Order Comment: Speci men Type: BLOOD SPECIMENOrdering Facility: [facility] Address: [address] [place] [address] Performed By: #### 5 7021-8 ####[facility] LABCLIA [id number] [place] [address] Neutrophils (Bld) [#/Vol] 2.60 10*3/uL Normal 1.45-7.50 [facility] Comment on above: Order Comment: Speci men Type: BLOOD SPECIMENOrdering Facility: [facility] Address: [address] [place] [address] Performed By: #### 5 7021-8 ####[facility] LABCLIA [id number] [place] [address] Neutrophils/100 WBC (Bld) 51.6 % Normal [facility] Comment on above: Order Comment: Speci men Type: BLOOD SPECIMENOrdering Facility: [facility] Address: [address] [place] [address] Performed By: #### 5 7021-8 ####[facility] LABCLIA [id number] [place] [address] Nucleated RBC (Bld) [#/Vol] 10*3/uL Normal <0.01 [facility] Comment on above: Order Comment: Speci men Type: BLOOD SPECIMENOrdering Facility: [facility] Address: [address] [place] [address] Performed By: #### 5 7021-8 ####[facility] LABCLIA [id number] [place] [address] Nucleated RBC/100 WBC (Bld) [Ratio] 0.0 /100 WBC Normal [facility] Comment on above: Order Comment: Speci men Type: BLOOD SPECIMENOrdering Facility: [facility] Address: [address] [place] [address] Performed By: #### 5 7021-8 ####[facility] LABCLIA [id number] [place] [address] Platelet mean volume (Bld) [Entitic vol] 9.7 fL Normal 9.0-12.7 [facility] Comment on above: Order Comment: Speci men Type: BLOOD SPECIMENOrdering Facility: [facility] Address: [address] [place] [address] Performed By: #### 5 7021-8 ####[facility] LABCLIA [id number] [place] [address] Platelets (Bld) [#/Vol] 141 10*3/uL Low 150-400 [facility] Comment on above: Order Comment: Speci men Type: BLOOD SPECIMENOrdering Facility: [facility] Address: [address] [place] [address] Performed By: #### 5 7021-8 ####[facility] LABCLIA [id number] [place] [address] RBC (Bld) [#/Vol] 3.35 10*6/uL Low 3.90-5.20 [facility] Comment on above: Order Comment: Speci men Type: BLOOD SPECIMENOrdering Facility: [facility] Address: [address] [place] [address] Performed By: #### 5 7021-8 ####[facility] LABCLIA [id number] [place] [address] WBC (Bld) [#/Vol] 5.03 10*3/uL Normal 3.70-11.00 [facility] Comment on above: Order Comment: Speci men Type: BLOOD SPECIMENOrdering Facility: [facility] Address: [address] [place] [address] Performed By: #### 5 7021-8 ####[facility] LABCLIA [id number] [place] [address] CNOVSPon 03-28-2025 CNOVSP Normal [facility] [place] [address] Ultrasound Report Signed Patient: ANDREI FISH MR#: [id number] : 1950 Acct:[id number] Age/Sex: 74 / F ADM Date: 03/19/25 Loc: US Attending Dr: Mar Mayo M.D. Ordering Physician: Mar Mayo M.D. Date of Service: 03/19/25 Procedure(s): US thyroid Accession Number(s): [id number] cc: Stephanie Dumont [employer]; Mar Mayo M.D. [address] [address] Patient Name: ANDREI FISH MRN: [id number] date: 1950 Sex: F Assigned Patient Location: US Current Patient Location: US Accession/Order Number: [id number] Exam Date: 03/19/2025 11:12 Report Date: 03/19/2025 11:54 At the request of: MAR MAYO MD Procedure: US thyroid THYROID ULTRASOUND CLINICAL [...] Savage M.D. 03/19/2025 11:54 AM Dictation Location: [place] [address] Electronically authenticated by: [id number] Y Date: 03/19/2025 11:54 Dictated By: Doris Savage M.D. Signed By: 03/19/25 1156 DD/ 1154 TD/TT: [employer] Assistant Manager: [facility] Radiology, Radiologist, MD - 03/19/2025 [place] [address] Ultrasound Report Signed Patient: ANDREI FISH MR#: [id number] : 1950 Acct:[id number] Age/Sex: 74 / F ADM Date: 03/19/25 Loc: US Attending Dr: Mar Mayo M.D. Ordering Physician: Mar Mayo M.D. Date of Service: 03/19/25 Procedure(s): US thyroid Accession Number(s): [id number] cc: Stephanie Dumont [employer]; Mar Mayo M.D. [place] [address] Patient Name: ANDREI FISH MRN: [facility]:[id number] date: 1950 Sex: F Assigned Patient Location: US Current Patient Location: US Accession/Order Number: [id number] Exam Date: 03/19/2025 11:12 Report Date: 03/19/2025 11:54 At the request of: MAR MAYO MD Procedure: US thyroid THYROID ULTRASOUND CLINICAL [...] Savage M.D. 03/19/2025 11:54 AM Dictation Location: [place] [address] Electronically authenticated by: [id number] Y Date: 03/19/2025 11:54 Dictated By: Doris Savage M.D. Signed By: 03/19/25 1156 DD/ 1154 TD/TT: [employer] Assistant Manager: [facility] Radiology Study observation (narrative) [facility] US Thyroid glandOrdered By: Radiologist Radiology on 03-19-2025 [facility] Work Phone: CBC W Auto Differential pane l (Bld)on 03-14-2025 Basophils (Bld) [#/Vol] 10*3/uL Normal <0.[address] [facility] Comment on above: Order Comment: Speci men Type: BLOOD SPECIMENOrdering Facility: [facility] Address: [address] [place] [address] Performed By: #### 5 7021-8 ####[facility] LABCLIA [id number] [place] [address] Basophils/100 WBC (Bld) 0.3 % Normal [facility] Comment on above: Order Comment: Speci men Type: BLOOD SPECIMENOrdering Facility: [facility] Address: [address] [place] [address] Performed By: #### 5 7021-8 ####[facility] LABCLIA [id number] [place] [address] Differential cell count method Nom (Bld) Auto Normal [facility] Comment on above: Order Comment: Speci men Type: BLOOD SPECIMENOrdering Facility: [facility] Address: [address] [place] [address] Performed By: #### 5 7021-8 ####[facility] LABCLIA [id number] [place] [address] Eosinophils (Bld) [#/Vol] 0.08 10*3/uL Normal <0.46 [facility] Comment on above: Order Comment: Speci men Type: BLOOD SPECIMENOrdering Facility: [facility] Address: [address] [place] [address] Performed By: #### 5 7021-8 ####[facility] LABCLIA [id number] [place] [address] Eosinophils/100 WBC (Bld) 1.3 % Normal [facility] Comment on above: Order Comment: Speci men Type: BLOOD SPECIMENOrdering Facility: [facility] Address: [address] [place] [address] Performed By: #### 5 7021-8 ####[facility] LABCLIA [id number] [place] [address] Erythrocyte distribution width (RBC) [Ratio] 13.9 % Normal 11.5-15.0 [facility] Comment on above: Order Comment: Speci men Type: BLOOD SPECIMENOrdering Facility: [facility] Address: [address] [place] [address] Performed By: #### 5 7021-8 ####[facility] LABCLIA [id number] [place] [address] Hematocrit (Bld) [Volume fraction] 36.1 % Normal 36.0-46.0 [facility] Comment on above: Order Comment: Speci men Type: BLOOD SPECIMENOrdering Facility: [facility] Address: [address] [place] [address] Performed By: #### 5 7021-8 ####[facility] LABCLIA [id number] [place] [address] Hemoglobin (Bld) [Mass/Vol] 11.2 g/dL Low 11.5-15.5 [facility] Comment on above: Order Comment: Speci men Type: BLOOD SPECIMENOrdering Facility: [facility] Address: [address] [place] [address] Performed By: #### 5 7021-8 ####[facility] LABCLIA [id number] [place] [address] Immature granulocytes (Bld) [#/Vol] 0.03 10*3/uL Normal <0.10 [facility] Comment on above: Order Comment: Speci men Type: BLOOD SPECIMENOrdering Facility: [facility] Address: [address] [place] [address] Performed By: #### 5 7021-8 ####[facility] LABCLIA [id number] [place] [address] Immature granulocytes/100 WBC (Bld) 0.5 % Normal [facility] Comment on above: Order Comment: Speci men Type: BLOOD SPECIMENOrdering Facility: [facility] Address: [address] [place] [address] Performed By: #### 5 7021-8 ####[facility] LABCLIA [id number] [place] [address] Lymphocytes (Bld) [#/Vol] 2.39 10*3/uL Normal 1.00-4.00 [facility] Comment on above: Order Comment: Speci men Type: BLOOD SPECIMENOrdering Facility: [facility] Address: [address] [place] [address] Performed By: #### 5 7021-8 ####[facility] LABCLIA [id number] [place] [address] Lymphocytes/100 WBC (Bld) 40.1 % Normal [facility] Comment on above: Order Comment: Speci men Type: BLOOD SPECIMENOrdering Facility: [facility] Address: [address] [place] [address] Performed By: #### 5 7021-8 ####[facility] LABCLIA [id number] [place] [address] MCH (RBC) [Entitic mass] 31.1 pg Normal 26.0-34.0 [facility] Comment on above: Order Comment: Speci men Type: BLOOD SPECIMENOrdering Facility: [facility] Address: [address] [place] [address] Performed By: #### 5 7021-8 ####[facility] LABCLIA [id number] [place] [address] MCHC (RBC) [Mass/Vol] 31.0 g/dL Normal 30.5-36.0 [facility] Comment on above: Order Comment: Speci men Type: BLOOD SPECIMENOrdering Facility: [facility] Address: [address] [place] [address] Performed By: #### 5 7021-8 ####[facility] LABCLIA [id number] [place] [address] MCV (RBC) [Entitic vol] 100.3 fL High 80.0-100.[address] [facility] Comment on above: Order Comment: Speci men Type: BLOOD SPECIMENOrdering Facility: [facility] Address: [address] [place] [address] Performed By: #### 5 7021-8 ####[facility] LABCLIA [id number] [place] [address] Monocytes (Bld) [#/Vol] 0.23 10*3/uL Normal <0.87 [facility] Comment on above: Order Comment: Speci men Type: BLOOD SPECIMENOrdering Facility: [facility] Address: [address] [place] [address] Performed By: #### 5 7021-8 ####[facility] LABCLIA [id number] [place] [address] Monocytes/100 WBC (Bld) 3.9 % Normal [facility] Comment on above: Order Comment: Speci men Type: BLOOD SPECIMENOrdering Facility: [facility] Address: [address] [place] [address] Performed By: #### 5 7021-8 ####[facility] LABCLIA [id number] [place] [address] Neutrophils (Bld) [#/Vol] 3.21 10*3/uL Normal 1.45-7.50 [facility] Comment on above: Order Comment: Speci men Type: BLOOD SPECIMENOrdering Facility: [facility] Address: [address] [place] [address] Performed By: #### 5 7021-8 ####[facility] LABCLIA [id number] [place] [address] Neutrophils/100 WBC (Bld) 53.9 % Normal [facility] Comment on above: Order Comment: Speci men Type: BLOOD SPECIMENOrdering Facility: [facility] Address: [address] [place] [address] Performed By: #### 5 7021-8 ####[facility] LABCLIA [id number] [place] [address] Nucleated RBC (Bld) [#/Vol] 10*3/uL Normal <0.01 [facility] Comment on above: Order Comment: Speci men Type: BLOOD SPECIMENOrdering Facility: [facility] Address: [address] [place] [address] Performed By: #### 5 7021-8 ####[facility] LABCLIA [id number] [place] [address] Nucleated RBC/100 WBC (Bld) [Ratio] 0.0 /100 WBC Normal [facility] Comment on above: Order Comment: Speci men Type: BLOOD SPECIMENOrdering Facility: [facility] Address: [address] [place] [address] Performed By: #### 5 7021-8 ####[facility] LABCLIA [id number] [place] [address] Platelet mean volume (Bld) [Entitic vol] 9.4 fL Normal 9.0-12.7 [facility] Comment on above: Order Comment: Speci men Type: BLOOD SPECIMENOrdering Facility: [facility] Address: [address] [place] [address] Performed By: #### 5 7021-8 ####[facility] LABIA [id number] [place] [address] Platelets (Bld) [#/Vol] 194 10*3/uL Normal 150-400 [facility] Comment on above: Order Comment: Speci men Type: BLOOD SPECIMENOrdering Facility: [facility] Address: [address] [place] [address] Performed By: #### 5 7021-8 ####[facility] LABCLIA [id number] [place] [address] RBC (Bld) [#/Vol] 3.60 10*6/uL Low 3.90-5.20 [facility] Comment on above: Order Comment: Speci men Type: BLOOD SPECIMENOrdering Facility: [facility] Address: [address] [place] [address] Performed By: #### 5 7021-8 ####[facility] LABCLIA [id number] [place] [address] WBC (Bld) [#/Vol] 5.96 10*3/uL Normal 3.70-11.00 [facility] Comment on above: Order Comment: Speci men Type: BLOOD SPECIMENOrdering Facility: [facility] Address: [address] [place] [address] Performed By: #### 5 7021-8 ####[facility] LABCLIA [id number] [place] [address] Comprehensive metabolic 2000 panelon 03-14-2025 Albumin [Mass/Vol] 3.7 g/dL Low 3.9-4.9 [facility] Comment on above: Order Comment: Speci men Type: BLOOD SPECIMENOrdering Facility: [facility] Address: [address] [place] [address] Performed By: #### 2 4323-8 ####[facility] LABCLIA [id number] [place] [address] [place] ALP [Catalytic activity/Vol] 83 U/L Normal 34-123 [facility] Comment on above: Order Comment: Speci men Type: BLOOD SPECIMENOrdering Facility: [facility] Address: [address] [place] [address] Performed By: #### 2 4323-8 ####[facility] LABCLIA [id number] [place] [address] [place] ALT [Catalytic activity/Vol] 16 U/L Normal 7-38 [facility] Comment on above: Order Comment: Speci men Type: BLOOD SPECIMENOrdering Facility: [facility] Address: [address] [place] [address] Performed By: #### 2 4323-8 ####[facility] LABCLIA [id number] [place] [id number] [place] Anion gap [Moles/Vol] 10 mmol/L Normal 8-15 [facility] Comment on above: Order Comment: Speci men Type: BLOOD SPECIMENOrdering Facility: [facility] Address: [address] [place] [address] Performed By: #### 2 4323-8 ####[facility] LABCLIA [id number] [place] [address] [place] AST [Catalytic activity/Vol] 28 U/L Normal 13-35 [facility] Comment on above: Order Comment: Speci men Type: BLOOD SPECIMENOrdering Facility: [facility] Address: [address] [place] [address] Performed By: #### 2 4323-8 ####[facility] LABCLIA [id number] [place] [address] [place] Bilirubin [Mass/Vol] 0.4 mg/dL Normal 0.2-1.3 [facility] Comment on above: Order Comment: Speci men Type: BLOOD SPECIMENOrdering Facility: [facility] Address: [address] [place] [address] Performed By: #### 2 4323-8 ####[facility] LABCLIA [id number] [place] [address] [place] Calcium [Mass/Vol] 9.3 mg/dL Normal 8.5-10.2 [facility] Comment on above: Order Comment: Speci men Type: BLOOD SPECIMENOrdering Facility: [facility] Address: [address] [place] [address] Performed By: #### 2 4323-8 ####[facility] LABCLIA [id number] [place] [id number] [place] Chloride [Moles/Vol] 104 mmol/L Normal 98-107 [facility] Comment on above: Order Comment: Speci men Type: BLOOD SPECIMENOrdering Facility: [facility] Address: [address] [place] [address] Performed By: #### 2 4323-8 ####[facility] LABCLIA [id number] [address] [address] [place] CO2 [Moles/Vol] 24 mmol/L Normal 22-30 [facility] Comment on above: Order Comment: Speci men Type: BLOOD SPECIMENOrdering Facility: [facility] Address: [address] [place] [address] Performed By: #### 2 4323-8 ####[facility] LABCLIA [id number] [place] [id number] [place] Creatinine [Mass/Vol] 1.19 mg/dL High 0.58-0.96 [facility] Comment on above: Order Comment: Speci men Type: BLOOD SPECIMENOrdering Facility: [facility] Address: [address] [place] [address] Performed By: #### 2 4323-8 ####[facility] LABIA [id number] [place] [address] [place] eGFRcr SerPlBld CKD-EPI 2020 48 mL/min/1.73m??? Low >=60 [facility] Comment on above: Order Comment: Speci men Type: BLOOD SPECIMENOrdering Facility: [facility] Address: [address] [place] [address] Result Comment: Miryam mated Glomerular Filtration Rate [...] actual GFR. Performed By: #### 2 4323-8 ####[facility] LABCLIA [id number] [place] [id number] [place] Glucose [Mass/Vol] 88 mg/dL Normal 74-99 [facility] Comment on above: Order Comment: Speci men Type: BLOOD SPECIMENOrdering Facility: [facility] Address: [address] [place] [address] Result Comment: The [place] [employer] (ADA) provides guidance for cutoff [...] Standards of Medical Care in Diabetes 2016, [place] [employer]. Diabetes Care. 2016.39(Suppl 1). Performed By: #### 2 4323-8 ####[facility] LABCLIA [id number] [place] [address] [place] Potassium [Moles/Vol] 5.4 mmol/L High 3.7-5.1 [facility] Comment on above: Order Comment: Speci men Type: BLOOD SPECIMENOrdering Facility: [facility] Address: [address] [place] [address] Performed By: #### 2 4323-8 ####[facility] LABCLIA [id number] [place] [address] [place] Protein [Mass/Vol] 7.3 g/dL Normal 6.3-8.0 [facility] Comment on above: Order Comment: Speci men Type: BLOOD SPECIMENOrdering Facility: [facility] Address: [address] [place] [address] Performed By: #### 2 4323-8 ####[facility] LABCLIA [id number] [place] [id number] [place] Sodium [Moles/Vol] 138 mmol/L Normal 136-144 [facility] Comment on above: Order Comment: Speci men Type: BLOOD SPECIMENOrdering Facility: [facility] Address: [address] [place] [address] Performed By: #### 2 4323-8 ####[facility] LABCLIA [id number] [address] [address] [place] Urea nitrogen [Mass/Vol] 29 mg/dL High 7-21 [facility] Comment on above: Order Comment: Speci men Type: BLOOD SPECIMENOrdering Facility: [facility] Address: [address] [place] [address] Performed By: #### 2 4323-8 ####[facility] LABCLIA [id number] [place] [id number] [place] Ferritin [facility] Ferritin [Mass/Vol] 96.2 ng/mL Normal 14.7-205.1 [facility] Comment on above: Order Comment: Speci men Type: BLOOD SPECIMENOrdering Facility: [facility] Address: [address] [place] [address] Performed By: #### 2 132-9, 2276-4, 2284-8, 28729-4 ####[facility] LABIA [id number] [place] [id number] [place] Folate SerPl-mCncon 03-14-20 25 Folate [Mass/Vol] 5.7 ng/mL Normal >4.7 [facility] Comment on above: Order Comment: Speci men Type: BLOOD SPECIMENOrdering Facility: [facility] Address: [address] [place] [address] Performed By: #### 2 132-9, 2276-4, 2284-8, 60261-6 ####[facility] LABIA [id number] [address] [address] [place] Iron and Iron binding capaci ty panelon 03-14-2025 Iron [Mass/Vol] 51 ug/dL Normal 41-186 [facility] Comment on above: Order Comment: Speci men Type: BLOOD SPECIMENOrdering Facility: [facility] Address: [address] [place] [address] Performed By: #### 2 132-9, 2276-4, 2284-8, 92205-7 ####[facility] LABCLIA [id number] [place] [id number] [place] Iron binding capacity [Mass/Vol] 335 ug/dL Normal 232-386 [facility] Comment on above: Order Comment: Speci men Type: BLOOD SPECIMENOrdering Facility: [facility] Address: [address] [place] [address] Performed By: #### 2 132-9, 2276-4, 2284-8, 28638-4 ####[facility] LABIA [id number] [place] [id number] [place] Iron/TIBC [Molar ratio] 15.2 % Normal 15.0-57.[address] [facility] Comment on above: Order Comment: Speci men Type: BLOOD SPECIMENOrdering Facility: [facility] Address: [address] [place] [address] Performed By: #### 2 132-9, 6-4, 4-8, 32094-5 ####[facility] [id number] [place] [phone] [place] Vit B12 [facility] 025 Cobalamin (Vitamin B12) [Mass/Vol] 766 pg/mL Normal 232-1245 [facility] Comment on above: Order Comment: Speci men Type: BLOOD SPECIMENOrdering Facility: [facility] Address: [address] [place] [address] Performed By: #### 2 132-9, 2276-4, 2284-8, 41278-9 ####[facility] LABIA [id number] [place] [id number] [place] CBC W Auto Differential pane l (Bld)on 02-14-2025 Basophils (Bld) [#/Vol] 10*3/uL Normal <0.[address] [facility] Comment on above: Order Comment: Speci men Type: BLOOD SPECIMENOrdering Facility: [facility] Address: [address] [place] [address] Performed By: #### 5 7021-8 ####[facility] LABCLIA [id number] [place] [address] Basophils/100 WBC (Bld) 0.2 % Normal [facility] Comment on above: Order Comment: Speci men Type: BLOOD SPECIMENOrdering Facility: [facility] Address: [address] [place] [address] Performed By: #### 5 7021-8 ####[facility] LABCLIA [id number] [place] [address] Differential cell count method Nom (Bld) Auto Normal [facility] Comment on above: Order Comment: Speci men Type: BLOOD SPECIMENOrdering Facility: [facility] Address: [address] [place] [address] Performed By: #### 5 7021-8 ####[facility] LABCLIA [id number] [place] [address] Eosinophils (Bld) [#/Vol] 0.04 10*3/uL Normal <0.46 [facility] Comment on above: Order Comment: Speci men Type: BLOOD SPECIMENOrdering Facility: [facility] Address: [address] [place] [address] Performed By: #### 5 7021-8 ####[facility] LABCLIA [id number] [place] [address] Eosinophils/100 WBC (Bld) 0.9 % Normal [facility] Comment on above: Order Comment: Speci men Type: BLOOD SPECIMENOrdering Facility: [facility] Address: [address] [place] [address] Performed By: #### 5 7021-8 ####[facility] LABCLIA [id number] [place] [address] Erythrocyte distribution width (RBC) [Ratio] 14.5 % Normal 11.5-15.0 [facility] Comment on above: Order Comment: Speci men Type: BLOOD SPECIMENOrdering Facility: [facility] Address: [address] [place] [address] Performed By: #### 5 7021-8 ####[facility] LABCLIA [id number] [place] [address] Hematocrit (Bld) [Volume fraction] 34.3 % Low 36.0-46.0 [facility] Comment on above: Order Comment: Speci men Type: BLOOD SPECIMENOrdering Facility: [facility] Address: [address] [place] [address] Performed By: #### 5 7021-8 ####[facility] LABCLIA [id number] [place] [address] Hemoglobin (Bld) [Mass/Vol] 10.8 g/dL Low 11.5-15.5 [facility] Comment on above: Order Comment: Speci men Type: BLOOD SPECIMENOrdering Facility: [facility] Address: [address] [place] [address] Performed By: #### 5 7021-8 ####[facility] LABCLIA [id number] [place] [address] Immature granulocytes (Bld) [#/Vol] 10*3/uL Normal <0.10 [facility] Comment on above: Order Comment: Speci men Type: BLOOD SPECIMENOrdering Facility: [facility] Address: [address] [place] [address] Performed By: #### 5 7021-8 ####[facility] LABCLIA [id number] [place] [address] Immature granulocytes/100 WBC (Bld) 0.0 % Normal [facility] Comment on above: Order Comment: Speci men Type: BLOOD SPECIMENOrdering Facility: [facility] Address: [address] [place] [address] Performed By: #### 5 7021-8 ####[facility] LABCLIA [id number] [place] [address] Lymphocytes (Bld) [#/Vol] 1.87 10*3/uL Normal 1.00-4.00 [facility] Comment on above: Order Comment: Speci men Type: BLOOD SPECIMENOrdering Facility: [facility] Address: [address] [place] [address] Performed By: #### 5 7021-8 ####[facility] LABCLIA [id number] [place] [address] Lymphocytes/100 WBC (Bld) 43.3 % Normal [facility] Comment on above: Order Comment: Speci men Type: BLOOD SPECIMENOrdering Facility: [facility] Address: [address] [place] [address] Performed By: #### 5 7021-8 ####[facility] LABIA [id number] [place] [address] MCH (RBC) [Entitic mass] 32.2 pg Normal 26.0-34.0 [facility] Comment on above: Order Comment: Speci men Type: BLOOD SPECIMENOrdering Facility: [facility] Address: [address] [place] [address] Performed By: #### 5 7021-8 ####[facility] LABIA [id number] [place] [address] MCHC (RBC) [Mass/Vol] 31.5 g/dL Normal 30.5-36.0 [facility] Comment on above: Order Comment: Speci men Type: BLOOD SPECIMENOrdering Facility: [facility] Address: [address] [place] [address] Performed By: #### 5 7021-8 ####[facility] LABIA [id number] [place] [address] MCV (RBC) [Entitic vol] 102.4 fL High 80.0-100.[address] [facility] Comment on above: Order Comment: Speci men Type: BLOOD SPECIMENOrdering Facility: [facility] Address: [address] [place] [address] Performed By: #### 5 7021-8 ####[facility] LABCLIA [id number] [place] [address] Monocytes (Bld) [#/Vol] 0.23 10*3/uL Normal <0.87 [facility] Comment on above: Order Comment: Speci men Type: BLOOD SPECIMENOrdering Facility: [facility] Address: [address] [place] [address] Performed By: #### 5 7021-8 ####[facility] LABCLIA [id number] [place] [address] Monocytes/100 WBC (Bld) 5.3 % Normal [facility] Comment on above: Order Comment: Speci men Type: BLOOD SPECIMENOrdering Facility: [facility] Address: [address] [place] [address] Performed By: #### 5 7021-8 ####[facility] LABCLIA [id number] [place] [address] Neutrophils (Bld) [#/Vol] 2.17 10*3/uL Normal 1.45-7.50 [facility] Comment on above: Order Comment: Speci men Type: BLOOD SPECIMENOrdering Facility: [facility] Address: [address] [place] [address] Performed By: #### 5 7021-8 ####[facility] LABCLIA [id number] [place] [address] Neutrophils/100 WBC (Bld) 50.3 % Normal [facility] Comment on above: Order Comment: Speci men Type: BLOOD SPECIMENOrdering Facility: [facility] Address: [address] [place] [address] Performed By: #### 5 7021-8 ####[facility] LABCLIA [id number] [place] [address] Nucleated RBC (Bld) [#/Vol] 10*3/uL Normal <0.01 [facility] Comment on above: Order Comment: Speci men Type: BLOOD SPECIMENOrdering Facility: [facility] Address: [address] [place] [address] Performed By: #### 5 7021-8 ####[facility] LABCLIA [id number] [place] [address] Nucleated RBC/100 WBC (Bld) [Ratio] 0.0 /100 WBC Normal [facility] Comment on above: Order Comment: Speci men Type: BLOOD SPECIMENOrdering Facility: [facility] Address: [address] [place] [address] Performed By: #### 5 7021-8 ####[facility] LABCLIA [id number] [place] [address] Platelet mean volume (Bld) [Entitic vol] 8.7 fL Low 9.0-12.7 [facility] Comment on above: Order Comment: Speci men Type: BLOOD SPECIMENOrdering Facility: [facility] Address: [address] [place] [address] Performed By: #### 5 7021-8 ####[facility] LABCLIA [id number] [place] [address] Platelets (Bld) [#/Vol] 146 10*3/uL Low 150-400 [facility] Comment on above: Order Comment: Speci men Type: BLOOD SPECIMENOrdering Facility: [facility] Address: [address] [place] [address] Performed By: #### 5 7021-8 ####[facility] LABCLIA [id number] [place] [address] RBC (Bld) [#/Vol] 3.35 10*6/uL Low 3.90-5.20 [facility] Comment on above: Order Comment: Speci men Type: BLOOD SPECIMENOrdering Facility: [facility] Address: [address] [place] [address] Performed By: #### 5 7021-8 ####[facility] LABCLIA [id number] [place] [address] WBC (Bld) [#/Vol] 4.32 10*3/uL Normal 3.70-11.00 [facility] Comment on above: Order Comment: Speci men Type: BLOOD SPECIMENOrdering Facility: [facility] Address: [address] [place] [address] Performed By: #### 5 7021-8 ####[facility] LABCLIA [id number] [place] [address] CNOVSPon 02-14-2025 CNOVSP Normal [facility] metabolic 2000 panelon 02-14-2025 Albumin [Mass/Vol] 3.8 g/dL Low 3.9-4.9 [facility] Comment on above: Order Comment: Speci men Type: BLOOD SPECIMENOrdering Facility: [facility] Address: [address] [place] [address] Performed By: #### 2 4323-8 ####[facility] LABCLIA [id number] [place] [address] ALP [Catalytic activity/Vol] 78 U/L Normal 34-123 [facility] Comment on above: Order Comment: Speci men Type: BLOOD SPECIMENOrdering Facility: [facility] Address: [address] [place] [address] Performed By: #### 2 4323-8 ####[facility] LABCLIA [id number] [place] [address] ALT [Catalytic activity/Vol] 16 U/L Normal 7-38 [facility] Comment on above: Order Comment: Speci men Type: BLOOD SPECIMENOrdering Facility: [facility] Address: [address] [place] [address] Performed By: #### 2 4323-8 ####[facility] LABCLIA [id number] [place] [address] Anion gap [Moles/Vol] 7 mmol/L Low 8-15 [facility] Comment on above: Order Comment: Speci men Type: BLOOD SPECIMENOrdering Facility: [facility] Address: [address] [place], [place] [address] Performed By: #### 2 4323-8 ####[facility] LABCLIA [id number] [place] [address] AST [Catalytic activity/Vol] 20 U/L Normal 13-35 [facility] Comment on above: Order Comment: Speci men Type: BLOOD SPECIMENOrdering Facility: [facility] Address: [address] [place] [address] Performed By: #### 2 4323-8 ####[facility] LABCLIA [id number] [place] [address] Bilirubin [Mass/Vol] 0.6 mg/dL Normal 0.2-1.3 [facility] Comment on above: Order Comment: Speci men Type: BLOOD SPECIMENOrdering Facility: [facility] Address: [address] [place] [address] Performed By: #### 2 4323-8 ####[facility] LABCLIA [id number] [place] [address] Calcium [Mass/Vol] 9.4 mg/dL Normal 8.5-10.2 [facility] Comment on above: Order Comment: Speci men Type: BLOOD SPECIMENOrdering Facility: [facility] Address: [address] [place] [address] Performed By: #### 2 4323-8 ####[facility] LABCLIA [id number] [place] [address] Chloride [Moles/Vol] 108 mmol/L High 98-107 [facility] Comment on above: Order Comment: Speci men Type: BLOOD SPECIMENOrdering Facility: [facility] Address: [address] [place], [place] [address] Performed By: #### 2 4323-8 ####[facility] LABCLIA [id number] [place] [address] CO2 [Moles/Vol] 25 mmol/L Normal 22-30 [facility] Comment on above: Order Comment: Speci men Type: BLOOD SPECIMENOrdering Facility: [facility] Address: [address] [place] [address] Performed By: #### 2 4323-8 ####[facility] LABCLIA [id number] [place] [address] Creatinine [Mass/Vol] 1.21 mg/dL High 0.58-0.96 [facility] Comment on above: Order Comment: Speci men Type: BLOOD SPECIMENOrdering Facility: [facility] Address: [address] [place] [address] Performed By: #### 2 4323-8 ####[facility] LABIA [id number] [place] [address] eGFRcr SerPlBld CKD-EPI 2020 47 mL/min/1.73m??? Low >=60 [facility] Comment on above: Order Comment: Speci men Type: BLOOD SPECIMENOrdering Facility: [facility] Address: [address] [place] [address] Result Comment: Miryam mated Glomerular Filtration Rate [...] actual GFR. Performed By: #### 2 4323-8 ####[facility] LABIA [id number] [place] [address] Glucose [Mass/Vol] 109 mg/dL High 74-99 [facility] Comment on above: Order Comment: Speci men Type: BLOOD SPECIMENOrdering Facility: [facility] Address: [address] [place] [address] Result Comment: The [place] [employer] (ADA) provides guidance for cutoff [...] Standards of Medical Care in Diabetes 2016, [place] [employer]. Diabetes Care. 2016.39(Suppl 1). Performed By: #### 2 4323-8 ####[facility] LABCLIA [id number] [place] [address] Potassium [Moles/Vol] 4.4 mmol/L Normal 3.7-5.1 [facility] Comment on above: Order Comment: Speci men Type: BLOOD SPECIMENOrdering Facility: [facility] Address: [address] [place] [address] Performed By: #### 2 4323-8 ####[facility] LABCLIA [id number] [place] [address] Protein [Mass/Vol] 7.1 g/dL Normal 6.3-8.0 [facility] Comment on above: Order Comment: Speci men Type: BLOOD SPECIMENOrdering Facility: [facility] Address: [address] [place] [address] Performed By: #### 2 4323-8 ####[facility] LABCLIA [id number] [place] [address] Sodium [Moles/Vol] 140 mmol/L Normal 136-144 [facility] Comment on above: Order Comment: Speci men Type: BLOOD SPECIMENOrdering Facility: [facility] Address: [address] [place] [address] Performed By: #### 2 4323-8 ####[facility] LABCLIA [id number] [place] [address] Urea nitrogen [Mass/Vol] 37 mg/dL High 7-21 [facility] Comment on above: Order Comment: Speci men Type: BLOOD SPECIMENOrdering Facility: [facility] Address: [address] [place] [address] Performed By: #### 2 4323-8 ####[facility] LABCLIA [id number] [place] [address] Ferritin SerPl-mCncon 2024 Ferritin [Mass/Vol] 80.1 ng/mL Normal 14.7-205.1 [facility] Comment on above: Order Comment: Speci men Type: BLOOD SPECIMENOrdering Facility: [facility] Address: [address] [place] [address] Performed By: #### 5 0190-8, 2276-4, 8, 2132-03 ####[facility] LABCLIA [id number] [place] [address] [place] Folate SerPl-mCncon 02-15-20 25 Folate [Mass/Vol] 10.5 ng/mL Normal >4.7 [facility] Comment on above: Order Comment: Speci men Type: BLOOD SPECIMENOrdering Facility: [facility] Address: [address] [place] [address] Performed By: #### 5 0190-8, 2276-4, 2283-8, 2132-03 ####[facility] LABIA [id number] [place] [id number] [place] Iron and Iron binding capaci ty panelon 02-14-2025 Iron [Mass/Vol] 66 ug/dL Normal 41-186 [facility] Comment on above: Order Comment: Speci men Type: BLOOD SPECIMENOrdering Facility: [facility] Address: [address] [place] [address] Performed By: #### 5 0190-8, 4, 8, 2132-03 ####[facility] LABIA [id number] [place] [id number] [place] Iron binding capacity [Mass/Vol] 319 ug/dL Normal 232-386 [facility] Comment on above: Order Comment: Speci men Type: BLOOD SPECIMENOrdering Facility: [facility] Address: [address] [place] [address] Performed By: #### 5 0190-8, 4, 8, 2132-03 ####[facility] LABIA [id number] [place] [address] [place] Iron/TIBC [Molar ratio] 20.7 % Normal 15.0-57.[address] [facility] Comment on above: Order Comment: Speci men Type: BLOOD SPECIMENOrdering Facility: [facility] Address: [address] [place] [address] Performed By: #### 5 0190-8, 4, 2284-02, 2132-03 ####[facility] [id number] [place] [id number] [place] Vit B12 [facility] 08-2 025 Cobalamin (Vitamin B12) [Mass/Vol] 680 pg/mL Normal 232-1245 [facility] Comment on above: Order Comment: Speci men Type: BLOOD SPECIMENOrdering Facility: [facility] Address: [address] [place] [address] Performed By: #### 5 0190-8, 4, 2284-02, 2132-03 ####[facility] LABIA [id number] [place] [id number] [place] CBC W Auto Differential pane l (Bld)on 01-31-2025 Basophils (Bld) [#/Vol] 10*3/uL Normal <0.[address] [facility] Comment on above: Order Comment: Speci men Type: BLOOD SPECIMENOrdering Facility: [facility] Address: [address] [place] [address] Performed By: #### 5 7021-8 ####[facility] LABCLIA [id number] [place] [address] Basophils/100 WBC (Bld) 0.2 % Normal [facility] Comment on above: Order Comment: Speci men Type: BLOOD SPECIMENOrdering Facility: [facility] Address: [address] [place] [address] Performed By: #### 5 7021-8 ####[facility] LABCLIA [id number] [place] [address] Differential cell count method Nom (Bld) Auto Normal [facility] Comment on above: Order Comment: Speci men Type: BLOOD SPECIMENOrdering Facility: [facility] Address: [address] [place] [address] Performed By: #### 5 7021-8 ####[facility] LABCLIA [id number] [place] [address] Eosinophils (Bld) [#/Vol] 0.04 10*3/uL Normal <0.46 [facility] Comment on above: Order Comment: Speci men Type: BLOOD SPECIMENOrdering Facility: [facility] Address: [address] [place] [address] Performed By: #### 5 7021-8 ####[facility] LABCLIA [id number] [place] [address] Eosinophils/100 WBC (Bld) 0.8 % Normal [facility] Comment on above: Order Comment: Speci men Type: BLOOD SPECIMENOrdering Facility: [facility] Address: [address] [place] [address] Performed By: #### 5 7021-8 ####[facility] LABCLIA [id number] [place] [address] Erythrocyte distribution width (RBC) [Ratio] 14.5 % Normal 11.5-15.0 [facility] Comment on above: Order Comment: Speci men Type: BLOOD SPECIMENOrdering Facility: [facility] Address: [address] [place] [address] Performed By: #### 5 7021-8 ####[facility] LABCLIA [id number] [place] [address] Hematocrit (Bld) [Volume fraction] 33.8 % Low 36.0-46.0 [facility] Comment on above: Order Comment: Speci men Type: BLOOD SPECIMENOrdering Facility: [facility] Address: [address] [place] [address] Performed By: #### 5 7021-8 ####[facility] LABCLIA [id number] [place] [address] Hemoglobin (Bld) [Mass/Vol] 10.6 g/dL Low 11.5-15.5 [facility] Comment on above: Order Comment: Speci men Type: BLOOD SPECIMENOrdering Facility: [facility] Address: [address] [place] [address] Performed By: #### 5 7021-8 ####[facility] LABCLIA [id number] [place] [address] Immature granulocytes (Bld) [#/Vol] 10*3/uL Normal <0.10 [facility] Comment on above: Order Comment: Speci men Type: BLOOD SPECIMENOrdering Facility: [facility] Address: [address] [place] [address] Performed By: #### 5 7021-8 ####[facility] LABCLIA [id number] [place] [address] Immature granulocytes/100 WBC (Bld) 0.4 % Normal [facility] Comment on above: Order Comment: Speci men Type: BLOOD SPECIMENOrdering Facility: [facility] Address: [address] [place] [address] Performed By: #### 5 7021-8 ####[facility] LABCLIA [id number] [place] [address] Lymphocytes (Bld) [#/Vol] 2.20 10*3/uL Normal 1.00-4.00 [facility] Comment on above: Order Comment: Speci men Type: BLOOD SPECIMENOrdering Facility: [facility] Address: [address] [place] [address] Performed By: #### 5 7021-8 ####[facility] LABCLIA [id number] [place] [address] Lymphocytes/100 WBC (Bld) 42.6 % Normal [facility] Comment on above: Order Comment: Speci men Type: BLOOD SPECIMENOrdering Facility: [facility] Address: [address] [place] [address] Performed By: #### 5 7021-8 ####[facility] LABIA [id number] [place] [address] MCH (RBC) [Entitic mass] 31.8 pg Normal 26.0-34.0 [facility] Comment on above: Order Comment: Speci men Type: BLOOD SPECIMENOrdering Facility: [facility] Address: [address] [place] [address] Performed By: #### 5 7021-8 ####[facility] LABIA [id number] [place] [address] MCHC (RBC) [Mass/Vol] 31.4 g/dL Normal 30.5-36.0 [facility] Comment on above: Order Comment: Speci men Type: BLOOD SPECIMENOrdering Facility: [facility] Address: [address] [place] [address] Performed By: #### 5 7021-8 ####[facility] LABIA [id number] [place] [address] MCV (RBC) [Entitic vol] 101.5 fL High 80.0-100.[address] [facility] Comment on above: Order Comment: Speci men Type: BLOOD SPECIMENOrdering Facility: [facility] Address: [address] [place] [address] Performed By: #### 5 7021-8 ####[facility] LABCLIA [id number] [place] [address] Monocytes (Bld) [#/Vol] 0.25 10*3/uL Normal <0.87 [facility] Comment on above: Order Comment: Speci men Type: BLOOD SPECIMENOrdering Facility: [facility] Address: [address] [place] [address] Performed By: #### 5 7021-8 ####[facility] LABCLIA [id number] [place] [address] Monocytes/100 WBC (Bld) 4.8 % Normal [facility] Comment on above: Order Comment: Speci men Type: BLOOD SPECIMENOrdering Facility: [facility] Address: [address] [place] [address] Performed By: #### 5 7021-8 ####[facility] LABCLIA [id number] [place] [address] Neutrophils (Bld) [#/Vol] 2.65 10*3/uL Normal 1.45-7.50 [facility] Comment on above: Order Comment: Speci men Type: BLOOD SPECIMENOrdering Facility: [facility] Address: [address] [place] [address] Performed By: #### 5 7021-8 ####[facility] LABCLIA [id number] [place] [address] Neutrophils/100 WBC (Bld) 51.2 % Normal [facility] Comment on above: Order Comment: Speci men Type: BLOOD SPECIMENOrdering Facility: [facility] Address: [address] [place] [address] Performed By: #### 5 7021-8 ####[facility] LABCLIA [id number] [place] [address] Nucleated RBC (Bld) [#/Vol] 10*3/uL Normal <0.01 [facility] Comment on above: Order Comment: Speci men Type: BLOOD SPECIMENOrdering Facility: [facility] Address: [address] [place] [address] Performed By: #### 5 7021-8 ####[facility] LABCLIA [id number] [place] [address] Nucleated RBC/100 WBC (Bld) [Ratio] 0.0 /100 WBC Normal [facility] Comment on above: Order Comment: Speci men Type: BLOOD SPECIMENOrdering Facility: [facility] Address: [address] [place] [address] Performed By: #### 5 7021-8 ####[facility] LABCLIA [id number] [place] [address] Platelet mean volume (Bld) [Entitic vol] 8.8 fL Low 9.0-12.7 [facility] Comment on above: Order Comment: Speci men Type: BLOOD SPECIMENOrdering Facility: [facility] Address: [address] [place] [address] Performed By: #### 5 7021-8 ####[facility] LABCLIA [id number] [place] [address] Platelets (Bld) [#/Vol] 160 10*3/uL Normal 150-400 [facility] Comment on above: Order Comment: Speci men Type: BLOOD SPECIMENOrdering Facility: [facility] Address: [address] [place] [address] Performed By: #### 5 7021-8 ####[facility] LABCLIA [id number] [place] [address] RBC (Bld) [#/Vol] 3.33 10*6/uL Low 3.90-5.20 [facility] Comment on above: Order Comment: Speci men Type: BLOOD SPECIMENOrdering Facility: [facility] Address: [address] [place] [address] Performed By: #### 5 7021-8 ####[facility] LABCLIA [id number] [place] [address] WBC (Bld) [#/Vol] 5.17 10*3/uL Normal 3.70-11.00 [facility] Comment on above: Order Comment: Speci men Type: BLOOD SPECIMENOrdering Facility: [facility] Address: [address] [place] [address] Performed By: #### 5 7021-8 ####[facility] LABCLIA [id number] [place] [address] CNPNon 01-28-2025 CNPN Normal [facility] APTTon 01-20-2025 aPTT Coag (Bld) [Time] 33 s Normal 26-37 [facility] Comment on above: Performed By: #### RED Delgado #### [facility] ([id number]) [address] [facility], [address] [place] [address] CBC WITH AUTO DIFFERENTIALon 01-20-2025 BASOPHILS ABSOLUTE COUNT (10*3/UL) BY AUTOMATED COUNT 0.0 10*3/uL Normal 0.0-0.2 [facility] Comment on above: Performed By: #### H A1C, THYR #### [facility] ([id number]) [address] [facility], [address] [place] [address] BASOPHILS RELATIVE PERCENT BY AUTOMATED COUNT 0.4 % Normal [facility] Comment on above: Performed By: #### H A1C, THYR #### [facility] ([id number]) [address] [facility], [address] [place] [address] CELLAVISION DIFFERENTIAL TYPE AUTOMATED DIFFERENTIAL Normal [facility] Comment on above: Performed By: #### H A1C, THYR #### [facility] ([id number]) [address] [facility], [address] [place] [address] Eosinophils (Bld) [#/Vol] 0.0 10*3/uL Normal 0.0-0.4 [facility] Comment on above: Performed By: #### H A1C, THYR #### [facility] ([id number]) [address] [place] [address] EOSINOPHILS RELATIVE PERCENT BY AUTOMATED COUNT 1.0 % Normal [facility] Comment on above: Performed By: #### H A1C, THYR #### [facility] ([id number]) [address] [facility] [address] [place] [address] Erythrocyte distribution width (RBC) [Ratio] 15.0 % Normal 11.5-15 [facility] Comment on above: Performed By: #### H A1C, THYR #### [facility] ([id number]) [address] [facility] [address] [place] [address] Hematocrit (Bld) [Volume fraction] 32.7 % Low 35-47 [facility] Comment on above: Performed By: #### H A1C, THYR #### [facility] ([id number]) [address] [facility] [address] [place] [address] Hemoglobin (Bld) [Mass/Vol] 11.0 g/dL Low 11.7-15.5 [facility] Comment on above: Performed By: #### H A1C, THYR #### [facility] ([id number]) [address] [place] [address] LYMPHOCYTES ABSOLUTE COUNT (10*3/UL) BY AUTOMATED COUNT 1.5 10*3/uL Normal 1.0-3.5 [facility] Comment on above: Performed By: #### H A1C, THYR #### [facility] ([id number]) [address] [facility] [address] [place] [address] LYMPHOCYTES RELATIVE PERCENT BY AUTOMATED COUNT 40.7 % Normal [facility] Comment on above: Performed By: #### H A1C, THYR #### [facility] ([id number]) [address] [place] [address] MCH (RBC) [Entitic mass] 32.4 pg Normal 27-34 [facility] Comment on above: Performed By: #### H A1C, THYR #### [facility] ([id number]) [address] [place] [address] MCHC (RBC) [Mass/Vol] 33.6 g/dL Normal 32-36 [facility] Comment on above: Performed By: #### H A1C, THYR #### [facility] ([id number]) [address], [address] [place] [address] MCV (RBC) [Entitic vol] 97 fL Normal 80-[address] [facility] Comment on above: Performed By: #### H A1C, THYR #### [facility] ([id number]) [address] [place] [address] MONOCYTES ABSOLUTE COUNT (10*3/UL) BY AUTOMATED COUNT 0.2 10*3/uL Normal 0.0-0.9 [facility] Comment on above: Performed By: #### H A1C, THYR #### [facility] ([id number]) [address], [address] [place] [address] MONOCYTES RELATIVE PERCENT BY AUTOMATED COUNT 5.8 % Normal [facility] Comment on above: Performed By: #### H A1C, THYR #### [facility] ([id number]) [address], [address] [place] [address] NEUTROPHILS ABSOLUTE COUNT BY AUTOMATED COUNT 2.0 10*3/uL Normal 1.5-6.6 [facility] Comment on above: Performed By: #### H A1C, THYR #### [facility] ([id number]) [address], [address] [place] [address] NEUTROPHILS RELATIVE PERCENT BY AUTOMATED COUNT 52.1 % Normal [facility] Comment on above: Performed By: #### H A1C, THYR #### [facility] ([id number]) [address], [address] [place] [address] Platelet mean volume (Bld) [Entitic vol] 8.2 fL Normal 7-12 [facility] Comment on above: Performed By: #### H A1C, THYR #### [facility] ([id number]) [address], [address] [place] [address] Platelets (Bld) [#/Vol] 189 10*3/uL Normal 150-450 [facility] Comment on above: Performed By: #### H A1C, THYR #### [facility] ([id number]) [address], [address] [place] [address] RBC COUNT 3.38 X10E12/L Low 3.8-5.2 [facility] Comment on above: Performed By: #### H A1C, THYR #### [facility] ([id number]) [address], [address] [place] [address] WBC (Bld) [#/Vol] 3.8 10*3/uL Low 4-11 [facility] Comment on above: Performed By: #### H A1C, THYR #### [facility] ([id number]) [address], [address] [place] [address] COMPREHENSIVE METABOLIC PANE Momo 01-20-2025 Albumin [Mass/Vol] 3.6 g/dL Normal 3.2-5.3 [facility] Comment on above: Performed By: #### H A1C, THYR #### [facility] ([id number]) [address], [address] [place] [address] ALP [Catalytic activity/Vol] 70 U/L Normal 39-130 [facility] Comment on above: Performed By: #### H A1C, THYR #### [facility] ([id number]) [address], [address] [place] [address] ALT [Catalytic activity/Vol] 11 U/L Normal <=31 [facility] Comment on above: Performed By: #### H A1C, THYR #### [facility] ([id number]) [address] [place] [address] Anion gap [Moles/Vol] 11 mmol/L Normal 5-15 [facility] Comment on above: Performed By: #### H A1C, THYR #### [facility] ([id number]) [address], [address] [place] [address] AST [Catalytic activity/Vol] 18 U/L Normal <=41 [facility] Comment on above: Performed By: #### H A1C, THYR #### [facility] ([id number]) [address] [place] [address] Bilirubin [Mass/Vol] 0.5 mg/dL Normal 0.3-1.2 [facility] Comment on above: Performed By: #### H A1C, THYR #### [facility] ([id number]) [address] [place] [address] Calcium [Mass/Vol] 9.3 mg/dL Normal 8.5-10.5 [facility] Comment on above: Performed By: #### H A1C, THYR #### [facility] ([id number]) [address] [place] [address] Chloride [Moles/Vol] 106 mmol/L Normal 98-109 [facility] Comment on above: Performed By: #### H A1C, THYR #### [facility] ([id number]) [address], [address] [place] [address] CO2 [Moles/Vol] 24 mmol/L Normal 22-32 [facility] Comment on above: Performed By: #### H A1C, THYR #### [facility] ([id number]) [address] [place] [address] Creatinine [Mass/Vol] 1.17 mg/dL High 0.40-1.00 [facility] Comment on above: Result Comment: METH OD TRACEABLE TO IDMS STANDARD Performed By: #### H A1C, THYR #### [facility] ([id number]) [address] [place] [address] GFR/1.73 sq M.predicted among non-blacks MDRD (S/P/Bld) [Vol rate/Area] 49 mL/min/{1.73_m2} Low >=60 [facility] Comment on above: Result Comment: Repo rted eGFR is based on the CKD-EPI 2020 equation that does not use a race coefficient. Performed By: #### H A1C, THYR #### [facility] ([id number]) [address] [place] [address] Glucose [Mass/Vol] 90 mg/dL Normal 65-99 [facility] Comment on above: Performed By: #### H A1C, THYR #### [facility] ([id number]) [address] [place] [address] Potassium [Moles/Vol] 4.6 mmol/L Normal 3.5-5.0 [facility] Comment on above: Performed By: #### H A1C, THYR #### [facility] ([id number]) [address] [place] [address] Protein [Mass/Vol] 7.1 g/dL Normal 6.0-8.0 [facility] Comment on above: Performed By: #### H A1C, THYR #### [facility] ([id number]) [address] [place] [address] Sodium [Moles/Vol] 141 mmol/L Normal 134-146 [facility] Comment on above: Performed By: #### H A1C, THYR #### [facility] ([id number]) [address] [place] [address] Urea nitrogen [Mass/Vol] 32 mg/dL High 5-27 [facility] Comment on above: Performed By: #### H A1C, THYR #### [facility] ([id number]) [address] [place] [address] FERRITINon 01-20-2025 Ferritin [Mass/Vol] 41 ng/mL Normal 11-307 [facility] Comment on above: Performed By: #### H A1C, THYR #### [facility] ([id number]) [address] [place] [address] IRON AND TIBCon 01-20-2025 Iron [Mass/Vol] 40 ug/dL Low 50-170 [facility] Comment on above: Performed By: #### H A1C, THYR #### [facility] ([id number]) [address] [place] [address] IRON BINDING 329 ug/dL Normal 250-425 [facility] Comment on above: Performed By: #### H A1C, THYR #### [facility] ([id number]) [address] [place] [address] IRON SATURATION 12 % SATURATION Low 15-50 [facility] Comment on above: Performed By: #### H A1C, THYR #### [facility] ([id number]) [address] [place] [address] Transferrin [Mass/Vol] 235 mg/dL Normal 168-336 [facility] Comment on above: Performed By: #### H A1C, THYR #### [facility] ([id number]) [address], [address] [place] [address] MAGNESIUMon 01-20-2025 Magnesium [Mass/Vol] 2.2 mg/dL Normal 1.8-2.6 [facility] Comment on above: Performed By: #### H A1C, THYR #### [facility] ([id number]) [address] [place] [address] PARATHYROID HORMOME, INTACTo n 01-20-2025 PTH INTACT 66 pg/mL Normal 12-88 [facility] Comment on above: Performed By: #### H A1C, THYR #### [facility] ([id number]) [address], [address] [place] [address] PHOSPHORUSon 01-20-2025 Phosphate [Mass/Vol] 2.9 mg/dL Normal 2.4-4.9 [facility] Comment on above: Performed By: #### H A1C, THYR #### [facility] ([id number]) [address], [address] [place] [address] PROTEIN CREAT RATIOon 2024 U/PRO/PHOTOGRAPHY EDITOR RATIO CALC 0.09 Normal <=0.20 [facility] Comment on above: Order Comment: Nephr otic Syndrome is associated with ratios >3.5 Performed By: #### H A1C, THYR #### [facility] ([id number]) [address], [address] [place] [address] URINE CREATININE,RDM 109.08 mg/dL Normal [facility] Comment on above: Order Comment: Nephr otic Syndrome is associated with ratios >3.5 Performed By: #### H A1C, THYR #### [facility] ([id number]) [address], [address] [place] [address] URINE PROTEIN, RANDOM (MG/L) 100 mg/L Normal <120 [facility] Comment on above: Order Comment: Nephr otic Syndrome is associated with ratios >3.5 Performed By: #### H A1C, THYR #### [facility] ([id number]) [address] [place] [address] PROTIME AND INRon 01-20-2025 INR 1.0 Normal 0.9-1.2 [facility] Comment on above: Performed By: #### U RED Sheikh #### [facility] ([id number]) [address], [address] [place] [address] PT Coag (PPP) [Time] 11.2 s Normal 9.8-13.2 [facility] Comment on above: Performed By: #### U RED Sheikh #### [facility] ([id number]) [address], [address] [place] [address] URIC ACIDon 01-20-2025 Urate [Mass/Vol] 7.9 mg/dL High 2.6-7.2 [facility] Comment on above: Performed By: #### H A1C, THYR #### [facility] ([id number]) [address], [address] [place] [address] URINALYSISon 01-20-2025 Bilirubin Ql (U) Negative Normal Negative [facility] Comment on above: Performed By: #### H A1C, THYR #### [facility] ([id number]) [address] [place] [address] BLOOD/HGB Negative Normal Negative [facility] Comment on above: Performed By: #### H A1C, THYR #### [facility] ([id number]) [address] [place] [address] Color (U) Yellow Normal Yellow, Colorless [facility] Comment on above: Performed By: #### H A1C, THYR #### [facility] ([id number]) [address] [place] [address] Glucose Ql (U) Negative Normal Negative [facility] Comment on above: Performed By: #### H A1C, THYR #### [facility] ([id number]) [address] [place] [address] Ketones Ql (U) Negative Normal Negative [facility] Comment on above: Performed By: #### H A1C, THYR #### [facility] ([id number]) [address] [place] [address] Leukocyte esterase Test strip Ql (U) Negative Normal Negative [facility] Comment on above: Performed By: #### H A1C, THYR #### [facility] ([id number]) [address] [place] [address] Nitrite Ql (U) Negative Normal Negative [facility] Comment on above: Performed By: #### H A1C, THYR #### [facility] ([id number]) [address] [place] [address] PH,URINE 6.0 Normal 5.0-8.5 [facility] Comment on above: Performed By: #### H A1C, THYR #### [facility] ([id number]) [address] [place] [address] Protein Ql (U) Negative Normal Negative [facility] Comment on above: Performed By: #### H A1C, THYR #### [facility] ([id number]) [address] [place] [address] Specific gravity (U) [Rel density] 1.018 Normal 1.003-1.035 [facility] Comment on above: Performed By: #### H A1C, THYR #### [facility] ([id number]) [address] [place] [address] TURBIDITY Clear Normal Clear [facility] Comment on above: Performed By: #### H A1C, THYR #### [facility] ([id number]) [address] [place] [address] UROBILINOGEN <1.1 eu/dL Normal <1.1 eu/dL [facility] Comment on above: Performed By: #### H A1C, THYR #### [facility] ([id number]) [address] [facility], [address] [place] [address] VITAMIN D 25 HYDROXYon 01-20 VITAMIN D 25 HYD TOT 19.9 ng/mL Low 30.0-100.0 [facility] Comment on above: Order Comment: Vitam in D status 25 [place] Vitamin D Deficienc y <20 ng/mLInsufficiency 20-29 ng/mLSufficiency 30-100 ng/mLToxicity >100 ng/mLNOTE: A pediatric reference range has not been established by the online activist of this kit. The [place] [employer] recommends a Vitamin D level of = or >20ng/mL in infants and children. Performed By: #### H A1C, THYR #### [facility] ([id number]) [address] [facility], [address] [address] CBC W Auto Differential pane l (Bld)on 01-17-2025 Basophils (Bld) [#/Vol] 10*3/uL Normal <0.[address] [facility] Comment on above: Order Comment: Speci men Type: BLOOD SPECIMENOrdering Facility: [facility] Address: [address] [place] [address] Performed By: #### 5 7021-8 ####[facility] LABCLIA [id number] [place] [address] Basophils/100 WBC (Bld) 0.2 % Normal [facility] Comment on above: Order Comment: Speci men Type: BLOOD SPECIMENOrdering Facility: [facility] Address: [address] [place] [address] Performed By: #### 5 7021-8 ####[facility] LABCLIA [id number] [place] [address] Differential cell count method Nom (Bld) Auto Normal [facility] Comment on above: Order Comment: Speci men Type: BLOOD SPECIMENOrdering Facility: [facility] Address: [address] [place] [address] Performed By: #### 5 7021-8 ####[facility] LABCLIA [id number] [place] [address] Eosinophils (Bld) [#/Vol] 0.04 10*3/uL Normal <0.46 [facility] Comment on above: Order Comment: Speci men Type: BLOOD SPECIMENOrdering Facility: [facility] Address: [address] [place] [address] Performed By: #### 5 7021-8 ####[facility] LABCLIA [id number] [place] [address] Eosinophils/100 WBC (Bld) 0.8 % Normal [facility] Comment on above: Order Comment: Speci men Type: BLOOD SPECIMENOrdering Facility: [facility] Address: [address] [place] [address] Performed By: #### 5 7021-8 ####[facility] LABCLIA [id number] [place] [address] Erythrocyte distribution width (RBC) [Ratio] 14.3 % Normal 11.5-15.0 [facility] Comment on above: Order Comment: Speci men Type: BLOOD SPECIMENOrdering Facility: [facility] Address: [address] [place] [address] Performed By: #### 5 7021-8 ####[facility] LABCLIA [id number] [place] [address] Hematocrit (Bld) [Volume fraction] 34.0 % Low 36.0-46.0 [facility] Comment on above: Order Comment: Speci men Type: BLOOD SPECIMENOrdering Facility: [facility] Address: [address] [place] [address] Performed By: #### 5 7021-8 ####[facility] LABCLIA [id number] [place] [address] Hemoglobin (Bld) [Mass/Vol] 10.8 g/dL Low 11.5-15.5 [facility] Comment on above: Order Comment: Speci men Type: BLOOD SPECIMENOrdering Facility: [facility] Address: [address] [place] [address] Performed By: #### 5 7021-8 ####[facility] LABCLIA [id number] [place] [address] Immature granulocytes (Bld) [#/Vol] 10*3/uL Normal <0.10 [facility] Comment on above: Order Comment: Speci men Type: BLOOD SPECIMENOrdering Facility: [facility] Address: [address] [place] [address] Performed By: #### 5 7021-8 ####[facility] LABCLIA [id number] [place] [address] Immature granulocytes/100 WBC (Bld) 0.2 % Normal [facility] Comment on above: Order Comment: Speci men Type: BLOOD SPECIMENOrdering Facility: [facility] Address: [address] [place] [address] Performed By: #### 5 7021-8 ####[facility] LABCLIA [id number] [place] [address] Lymphocytes (Bld) [#/Vol] 2.11 10*3/uL Normal 1.00-4.00 [facility] Comment on above: Order Comment: Speci men Type: BLOOD SPECIMENOrdering Facility: [facility] Address: [address] [place] [address] Performed By: #### 5 7021-8 ####[facility] LABCLIA [id number] [place] [address] Lymphocytes/100 WBC (Bld) 43.2 % Normal [facility] Comment on above: Order Comment: Speci men Type: BLOOD SPECIMENOrdering Facility: [facility] Address: [address] [place], [place] [address] Performed By: #### 5 7021-8 ####[facility] LABCLIA [id number] [place] [address] MCH (RBC) [Entitic mass] 32.1 pg Normal 26.0-34.0 [facility] Comment on above: Order Comment: Speci men Type: BLOOD SPECIMENOrdering Facility: [facility] Address: [address] [place] [address] Performed By: #### 5 7021-8 ####[facility] LABCLIA [id number] [place] [address] MCHC (RBC) [Mass/Vol] 31.8 g/dL Normal 30.5-36.0 [facility] Comment on above: Order Comment: Speci men Type: BLOOD SPECIMENOrdering Facility: [facility] Address: [address] [place] [address] Performed By: #### 5 7021-8 ####[facility] LABCLIA [id number] [place] [address] MCV (RBC) [Entitic vol] 101.2 fL High 80.0-100.[address] [facility] Comment on above: Order Comment: Speci men Type: BLOOD SPECIMENOrdering Facility: [facility] Address: [address] [place] [id number] Performed By: #### 5 7021-8 ####[facility] LABIA [id number] [place] [address] Monocytes (Bld) [#/Vol] 0.24 10*3/uL Normal <0.87 [facility] Comment on above: Order Comment: Speci men Type: BLOOD SPECIMENOrdering Facility: [facility] Address: [address] [place] [address] Performed By: #### 5 7021-8 ####[facility] LABCLIA [id number] [place] [address] Monocytes/100 WBC (Bld) 4.9 % Normal C [facility] Comment on above: Order Comment: Speci men Type: BLOOD SPECIMENOrdering Facility: [facility] Address: [address] [place] [address] Performed By: #### 5 7021-8 ####[facility] LABCLIA [id number] [place] [address] Neutrophils (Bld) [#/Vol] 2.47 10*3/uL Normal 1.45-7.50 [facility] Comment on above: Order Comment: Speci men Type: BLOOD SPECIMENOrdering Facility: [facility] Address: [address] [place] [address] Performed By: #### 5 7021-8 ####[facility] LABCLIA [id number] [place] [address] Neutrophils/100 WBC (Bld) 50.7 % Normal [facility] Comment on above: Order Comment: Speci men Type: BLOOD SPECIMENOrdering Facility: [facility] Address: [address] [place] [address] Performed By: #### 5 7021-8 ####[facility] LABCLIA [id number] [place] [address] Nucleated RBC (Bld) [#/Vol] 10*3/uL Normal <0.01 [facility] Comment on above: Order Comment: Speci men Type: BLOOD SPECIMENOrdering Facility: [facility] Address: [address] [place] [address] Performed By: #### 5 7021-8 ####[facility] LABCLIA [id number] [place] [address] Nucleated RBC/100 WBC (Bld) [Ratio] 0.0 /100 WBC Normal [facility] Comment on above: Order Comment: Speci men Type: BLOOD SPECIMENOrdering Facility: [facility] Address: [address] [place] [address] Performed By: #### 5 7021-8 ####[facility] LABCLIA [id number] [place] [address] Platelet mean volume (Bld) [Entitic vol] 9.3 fL Normal 9.0-12.7 [facility] Comment on above: Order Comment: Speci men Type: BLOOD SPECIMENOrdering Facility: [facility] Address: [address] [place] [address] Performed By: #### 5 7021-8 ####[facility] LABCLIA [id number] [place] [address] Platelets (Bld) [#/Vol] 163 10*3/uL Normal 150-400 [facility] Comment on above: Order Comment: Speci men Type: BLOOD SPECIMENOrdering Facility: [facility] Address: [address] [place] [address] Performed By: #### 5 7021-8 ####[facility] LABCLIA [id number] [place] [address] RBC (Bld) [#/Vol] 3.36 10*6/uL Low 3.90-5.20 [facility] Comment on above: Order Comment: Speci men Type: BLOOD SPECIMENOrdering Facility: [facility] Address: [address] [place] [address] Performed By: #### 5 7021-8 ####[facility] LABCLIA [id number] [place] [address] WBC (Bld) [#/Vol] 4.88 10*3/uL Normal 3.70-11.00 [facility] Comment on above: Order Comment: Speci men Type: BLOOD SPECIMENOrdering Facility: [facility] Address: [address] [place] [address] Performed By: #### 5 7021-8 ####[facility] LABCLIA [id number] [place] [address] XR LUMBAR SPINE 2 OR 3Von [address] [address] XRay Report Signed Patient: ANDREI FISH MR#: [id number] : 1950 Acct:[id number] Age/Sex: 74 / F ADM Date: 01/15/25 Loc: RAD Attending Dr: Stephanie Dumont [facility] [employer] [employer] Ordering Physician: Stephanie Dumont NP Date of Service: 01/15/25 Procedure(s): XR lumbar spine 2-3V Accession Number(s): [id number] cc: Stephanie Dumont NP [address] [address] Patient Name: ANDREI FISH MRN: [id number] date: 1950 Sex: F Assigned Patient Location: [facility] Current Patient Location: [facility] Accession/Order Number: [id number] Exam Date: 01/15/2025 16:23 Report Date: 01/15/2025 [...] Peralta M.D. 01/15/2025 4:25 PM Dictation Location: [place] [address] Electronically authenticated by: [id number] Y Date: 01/15/2025 16:25 Dictated By: Valentin Peralta D.O. Signed By: 01/15/25 1628 DD/ TD/TT: [employer] Assistant Manager: [facility] Radiology, Radiologist, MD - 01/15/2025 [place] [address] XRay Report Signed Patient: ANDREI FISH MR#: [id number] : 1950 Acct:[id number] Age/Sex: 74 / F ADM Date: 01/15/25 Loc: RAD Attending Dr: Stephanie Dumont NP Ordering Physician: Stephanie Dumont NP Date of Service: 01/15/25 Procedure(s): XR lumbar spine 2-3V Accession Number(s): [id number] cc: Stephanie Dumont NP [place] [address] Patient Name: ANDREI FISH MRN: [facility]:[id number] date: 1950 Sex: F Assigned Patient Location: [facility] Current Patient Location: [facility] Accession/Order Number: [id number] Exam Date: 01/15/2025 16:23 Report Date: 01/15/2025 [...] Peralta M.D. 01/15/2025 4:25 PM Dictation Location: [place] [address] Electronically authenticated by: [id number] Y Date: 01/15/2025 16:25 Dictated By: Valentin Peralta D.O. Signed By: 01/15/251627 DD/ 24 TD/TT: [employer] Assistant Manager: [facility] Radiology Study observation (narrative) [facility] XR LUMBAR SPINE 2 OR 3VOrder ed By: Radiologist Radiology on 01-15-2025 [facility] Work Phone: CBC W Auto Differential pane l (Bld)on 01-03-2025 Basophils (Bld) [#/Vol] 10*3/uL Normal <0.11 [facility] Comment on above: Order Comment: Speci men Type: BLOOD SPECIMENOrdering Facility: [facility] Address: [address] [place] [address] Performed By: #### 5 7021-8 ####[facility] LABCLIA [id number] [place] [address] Basophils/100 WBC (Bld) 0.4 % Normal [facility] Comment on above: Order Comment: Speci men Type: BLOOD SPECIMENOrdering Facility: [facility] Address: [address] [place] [address] Performed By: #### 5 7021-8 ####[facility] LABCLIA [id number] [place] [address] Differential cell count method Nom (Bld) Auto Normal [facility] Comment on above: Order Comment: Speci men Type: BLOOD SPECIMENOrdering Facility: [facility] Address: [address] [place] [address] Performed By: #### 5 7021-8 ####[facility] LABCLIA [id number] [place] [address] Eosinophils (Bld) [#/Vol] 0.04 10*3/uL Normal <0.46 [facility] Comment on above: Order Comment: Speci men Type: BLOOD SPECIMENOrdering Facility: [facility] Address: [address] [place] [address] Performed By: #### 5 7021-8 ####[facility] LABCLIA [id number] [place] [address] Eosinophils/100 WBC (Bld) 0.8 % Normal [facility] Comment on above: Order Comment: Speci men Type: BLOOD SPECIMENOrdering Facility: [facility] Address: [address] [place] [address] Performed By: #### 5 7021-8 ####[facility] LABCLIA [id number] [place] [address] Erythrocyte distribution width (RBC) [Ratio] 14.8 % Normal 11.5-15.0 [facility] Comment on above: Order Comment: Speci men Type: BLOOD SPECIMENOrdering Facility: [facility] Address: [address] [place] [address] Performed By: #### 5 7021-8 ####[facility] LABIA [id number] [place] [address] Hematocrit (Bld) [Volume fraction] 32.9 % Low 36.0-46.0 [facility] Comment on above: Order Comment: Speci men Type: BLOOD SPECIMENOrdering Facility: [facility] Address: [address] [place] [address] Performed By: #### 5 7021-8 ####[facility] LABCLIA [id number] [place] [address] Hemoglobin (Bld) [Mass/Vol] 10.6 g/dL Low 11.5-15.5 [facility] Comment on above: Order Comment: Speci men Type: BLOOD SPECIMENOrdering Facility: [facility] Address: [address] [place] [address] Performed By: #### 5 7021-8 ####[facility] LABIA [id number] [place] [address] Immature granulocytes (Bld) [#/Vol] 10*3/uL Normal <0.10 [facility] Comment on above: Order Comment: Speci men Type: BLOOD SPECIMENOrdering Facility: [facility] Address: [address] [place] [address] Performed By: #### 5 7021-8 ####[facility] LABCLIA [id number] [place] [address] Immature granulocytes/100 WBC (Bld) 0.2 % Normal [facility] Comment on above: Order Comment: Speci men Type: BLOOD SPECIMENOrdering Facility: [facility] Address: [address] [place] [address] Performed By: #### 5 7021-8 ####[facility] LABCLIA [id number] [place] [address] Lymphocytes (Bld) [#/Vol] 2.42 10*3/uL Normal 1.00-4.00 [facility] Comment on above: Order Comment: Speci men Type: BLOOD SPECIMENOrdering Facility: [facility] Address: [address] [place] [address] Performed By: #### 5 7021-8 ####[facility] LABCLIA [id number] [place] [address] Lymphocytes/100 WBC (Bld) 46.4 % Normal [facility] Comment on above: Order Comment: Speci men Type: BLOOD SPECIMENOrdering Facility: [facility] Address: [address] [place] [address] Performed By: #### 5 7021-8 ####[facility] LABCLIA [id number] [place] [address] MCH (RBC) [Entitic mass] 31.9 pg Normal 26.0-34.0 [facility] Comment on above: Order Comment: Speci men Type: BLOOD SPECIMENOrdering Facility: [facility] Address: [address] [place] [address] Performed By: #### 5 7021-8 ####[facility] LABCLIA [id number] [place] [address] MCHC (RBC) [Mass/Vol] 32.2 g/dL Normal 30.5-36.0 [facility] Comment on above: Order Comment: Speci men Type: BLOOD SPECIMENOrdering Facility: [facility] Address: [address] [place] [address] Performed By: #### 5 7021-8 ####[facility] LABCLIA [id number] [place] [address] MCV (RBC) [Entitic vol] 99.1 fL Normal 80.0-100.[address] [facility] Comment on above: Order Comment: Speci men Type: BLOOD SPECIMENOrdering Facility: [facility] Address: [address] [place] [address] Performed By: #### 5 7021-8 ####[facility] LABCLIA [id number] [place] [address] Monocytes (Bld) [#/Vol] 0.24 10*3/uL Normal <0.87 [facility] Comment on above: Order Comment: Speci men Type: BLOOD SPECIMENOrdering Facility: [facility] Address: [address] [place] [address] Performed By: #### 5 7021-8 ####[facility] LABCLIA [id number] [place] [address] Monocytes/100 WBC (Bld) 4.6 % Normal [facility] Comment on above: Order Comment: Speci men Type: BLOOD SPECIMENOrdering Facility: [facility] Address: [address] [place] [address] Performed By: #### 5 7021-8 ####[facility] LABCLIA [id number] [place] [address] Neutrophils (Bld) [#/Vol] 2.49 10*3/uL Normal 1.45-7.50 [facility] Comment on above: Order Comment: Speci men Type: BLOOD SPECIMENOrdering Facility: [facility] Address: [address] [place] [address] Performed By: #### 5 7021-8 ####[facility] LABCLIA [id number] [place] [address] Neutrophils/100 WBC (Bld) 47.6 % Normal [facility] Comment on above: Order Comment: Speci men Type: BLOOD SPECIMENOrdering Facility: [facility] Address: [address] [place] [address] Performed By: #### 5 7021-8 ####[facility] LABCLIA [id number] [place] [address] Nucleated RBC (Bld) [#/Vol] 10*3/uL Normal <0.01 [facility] Comment on above: Order Comment: Speci men Type: BLOOD SPECIMENOrdering Facility: [facility] Address: [address] [place] [address] Performed By: #### 5 7021-8 ####[facility] LABCLIA [id number] [place] [address] Nucleated RBC/100 WBC (Bld) [Ratio] 0.0 /100 WBC Normal [facility] Comment on above: Order Comment: Speci men Type: BLOOD SPECIMENOrdering Facility: [facility] Address: [address] [place] [address] Performed By: #### 5 7021-8 ####[facility] LABCLIA [id number] [place] [address] Platelet mean volume (Bld) [Entitic vol] 8.7 fL Low 9.0-12.7 [facility] Comment on above: Order Comment: Speci men Type: BLOOD SPECIMENOrdering Facility: [facility] Address: [address] [place] [address] Performed By: #### 5 7021-8 ####[facility] LABCLIA [id number] [place] [address] Platelets (Bld) [#/Vol] 132 10*3/uL Low 150-400 [facility] Comment on above: Order Comment: Speci men Type: BLOOD SPECIMENOrdering Facility: [facility] Address: [address] [place] [address] Performed By: #### 5 7021-8 ####[facility] LABIA [id number] [place] [address] RBC (Bld) [#/Vol] 3.32 10*6/uL Low 3.90-5.20 [facility] Comment on above: Order Comment: Speci men Type: BLOOD SPECIMENOrdering Facility: [facility] Address: [address] [place] [address] Performed By: #### 5 7021-8 ####[facility] LABIA [id number] [place] [address] WBC (Bld) [#/Vol] 5.22 10*3/uL Normal 3.70-11.00 [facility] Comment on above: Order Comment: Speci men Type: BLOOD SPECIMENOrdering Facility: [facility] Address: [address] [place] [address] Performed By: #### 5 7021-8 ####[facility] LABIA [id number] [place] [address] CNOVSPon 01-03-2025 CNOVSP Normal [facility] metabolic 2000 panelon 01-03-2025 Albumin [Mass/Vol] 3.7 g/dL Low 3.9-4.9 [facility] Comment on above: Order Comment: Speci men Type: BLOOD SPECIMENOrdering Facility: [facility] Address: [address] [place], [place] [address] Performed By: #### 2 4323-8 ####[facility] LABCLIA [id number] [place] [address]#### 3016-3 ####[facility] LABCLIA [id number] [place] [address] [place] ALP [Catalytic activity/Vol] 79 U/L Normal 34-123 [facility] Comment on above: Order Comment: Speci men Type: BLOOD SPECIMENOrdering Facility: [facility] Address: [address] [place] [address] Performed By: #### 2 4323-8 ####[facility] LABCLIA [id number] [place] [address]#### 3016-3 ####[facility] LABCLIA [id number] [address] [address] [place] ALT [Catalytic activity/Vol] 11 U/L Normal 7-38 [facility] Comment on above: Order Comment: Speci men Type: BLOOD SPECIMENOrdering Facility: [facility] Address: [address] [place] [address] Performed By: #### 2 4323-8 ####[facility] LABCLIA [id number] [place] [address]#### 3016-3 ####[facility] LABCLIA [id number] [place] [address] [place] Anion gap [Moles/Vol] 8 mmol/L Normal 8-15 [facility] Comment on above: Order Comment: Speci men Type: BLOOD SPECIMENOrdering Facility: [facility] Address: [address] [place] [address] Performed By: #### 2 4323-8 ####[facility] LABCLIA [id number] [place] [address]#### 3016-3 ####[facility] LABCLIA [id number] [address] [address] [place] AST [Catalytic activity/Vol] 18 U/L Normal 13-35 [facility] Comment on above: Order Comment: Speci men Type: BLOOD SPECIMENOrdering Facility: [facility] Address: [address] [place] [address] Performed By: #### 2 4323-8 ####[facility] LABCLIA [id number] [place] [address]#### 3016-3 ####[facility] LABCLIA [id number] [address] [address] [place] Bilirubin [Mass/Vol] 0.3 mg/dL Normal 0.2-1.3 [facility] Comment on above: Order Comment: Speci men Type: BLOOD SPECIMENOrdering Facility: [facility] Address: [address] [place] [address] Performed By: #### 2 4323-8 ####[facility] LABCLIA [id number] [place] [address]#### 3016-3 ####[facility] LABCLIA [id number] [place] [address] [place] Calcium [Mass/Vol] 9.5 mg/dL Normal 8.5-10.2 [facility] Comment on above: Order Comment: Speci men Type: BLOOD SPECIMENOrdering Facility: [facility] Address: [address] [place] [address] Performed By: #### 2 4323-8 ####[facility] LABCLIA [id number] [place] [address]#### 3016-3 ####[facility] LABCLIA [id number] [address] [address] [place] Chloride [Moles/Vol] 107 mmol/L Normal 98-107 [facility] Comment on above: Order Comment: Speci men Type: BLOOD SPECIMENOrdering Facility: [facility] Address: [address] [place], [place] [address] Performed By: #### 2 4323-8 ####[facility] LABCLIA [id number] [place] [address]#### 3016-3 ####[facility] LABCLIA [id number] [address] [address] [place] CO2 [Moles/Vol] 23 mmol/L Normal 22-30 [facility] Comment on above: Order Comment: Speci men Type: BLOOD SPECIMENOrdering Facility: [facility] Address: [address] [place] [address] Performed By: #### 2 4323-8 ####[facility] LABCLIA [id number] [place] [address]#### 3016-3 ####[facility] LABCLIA [id number] [place] [address] [place] Creatinine [Mass/Vol] 1.53 mg/dL High 0.58-0.96 [facility] Comment on above: Order Comment: Speci men Type: BLOOD SPECIMENOrdering Facility: [facility] Address: [address] [place] [address] Performed By: #### 2 4323-8 ####[facility] LABCLIA [id number] [place] [address]#### 3016-3 ####[facility] LABCLIA [id number] [address] [address] [place] Creatinine and Glomerular filtration rate.predicted panel (S/P/Bld) 36 mL/min/1.73m??? Low >=60 [facility] Comment on above: Order Comment: Speci men Type: BLOOD SPECIMENOrdering Facility: [facility] Address: [address] [place] [address] Result Comment: Miryam mated Glomerular Filtration Rate [...] actual GFR. Performed By: #### 2 4323-8 ####[facility] LABCLIA [id number] [place] [address]#### 3016-3 ####[facility] LABCLIA [id number] [address] [address] [place] Glucose [Mass/Vol] 103 mg/dL High 74-99 [facility] Comment on above: Order Comment: Speci men Type: BLOOD SPECIMENOrdering Facility: [facility] Address: [address] [place] [address] Result Comment: The [place] [employer] Association (ADA) provides guidance for cutoff [...] Standards of Medical Care in Diabetes 2016, [place] [employer]. Diabetes Care. 2016.39(Suppl 1). Performed By: #### 2 4323-8 ####[facility] LABCLIA [id number] [place] [address]#### 3016-3 ####[facility] LABCLIA [id number] [address] [address] [place] Potassium [Moles/Vol] 4.1 mmol/L Normal 3.7-5.1 [facility] Comment on above: Order Comment: Speci men Type: BLOOD SPECIMENOrdering Facility: [facility] Address: [address] [place] [address] Performed By: #### 2 4323-8 ####[facility] LABCLIA [id number] [place] [address]#### 3016-3 ####[facility] LABCLIA [id number] [address] [address] [place] Protein [Mass/Vol] 7.3 g/dL Normal 6.3-8.0 [facility] Comment on above: Order Comment: Speci men Type: BLOOD SPECIMENOrdering Facility: [facility] Address: [facility] [place] [address] Performed By: #### 2 4323-8 ####[facility] LABCLIA [id number] [place] [address]#### 3016-3 ####[facility] LABCLIA [id number] [address] [address] [place] Sodium [Moles/Vol] 138 mmol/L Normal 136-144 [facility] Comment on above: Order Comment: Speci men Type: BLOOD SPECIMENOrdering Facility: [facility] Address: [address] [place], [place] [address] Performed By: #### 2 4323-8 ####[facility] LABCLIA [id number] [place] [address]#### 3016-3 ####[facility] LABCLIA [id number] [address] [address] [place] Urea nitrogen [Mass/Vol] 46 mg/dL High 7-21 [facility] Comment on above: Order Comment: Speci men Type: BLOOD SPECIMENOrdering Facility: [facility] Address: [address] [place] [address] Performed By: #### 2 4323-8 ####[facility] LABCLIA [id number] [place] [address]#### 3016-3 ####[facility] LABCLIA [id number] [address] [address] [place] Ferritin SerPl-ncon 2024 Ferritin [Mass/Vol] 63.6 ng/mL Normal 14.7-205.1 [facility] Comment on above: Order Comment: Speci men Type: BLOOD SPECIMENOrdering Facility: [facility] Address: [address] [place], [place] [address] Performed By: #### 5 0190-8, 9, 2275-10, 2284-02 ####[facility] LABCLIA [id number] [place] [address] [place] Folate SerPl-mCncon 01-04-20 25 Folate [Mass/Vol] 4.1 ng/mL Low >4.7 [facility] Comment on above: Order Comment: Speci men Type: BLOOD SPECIMENOrdering Facility: [facility] Address: [address] [place] [address] Performed By: #### 5 0190-8, 2132-03, 2275-10, 2284-02 ####[facility] LABIA [id number] [place] [address] [place] Iron and Iron binding capaci ty panel 01-03-2025 Iron [Mass/Vol] 57 ug/dL Normal 41-186 [facility] Comment on above: Order Comment: Speci men Type: BLOOD SPECIMENOrdering Facility: [facility] Address: [address] [place] [address] Performed By: #### 5 0190-8, 2132-03, 2275-10, 2284-02 ####[facility] LABIA [id number] [place] [address] [place] Iron binding capacity [Mass/Vol] 316 ug/dL Normal 232-386 [facility] Comment on above: Order Comment: Speci men Type: BLOOD SPECIMENOrdering Facility: [facility] Address: [address] [place] [address] Performed By: #### 5 0190-8, 2132-03, 2275-10, 2284-02 ####[facility] LABCLIA [id number] [place] [address] [place] Iron/TIBC [Molar ratio] 18.0 % Normal 15.0-57.[address] [facility] Comment on above: Order Comment: Speci men Type: BLOOD SPECIMENOrdering Facility: [facility] Address: [address] [place] [address] Performed By: #### 5 0190-8, 2132-03, 2275-10, 2284-02 ####[facility] LABCLIA [id number] [place] [address] [place] THYROID STIMULATING HORMONEo n 01-03-2025 TSH Qn 0.371 m[IU]/L [facility] TSH Qnon 01-03-2025 Interpretation and review of laboratory results Normal [facility] TSH SerPl-aCncon 01-03-2025 TSH Qn 0.371 m[IU]/L Normal 0.270-4.200 [facility] Comment on above: Order Comment: Speci men Type: BLOOD SPECIMENOrdering Facility: [facility] Address: [address] [place] [address] Performed By: #### 2 4323-8 ####[facility] LABCLIA [id number] [place] [address]#### 3016-3 ####[facility] LABCLIA [id number] [place] [address] [place] Vit B12 SerPl-mCncon 025 Cobalamin (Vitamin B12) [Mass/Vol] 1229 pg/mL Normal 232-1245 [facility] Comment on above: Order Comment: Speci men Type: BLOOD SPECIMENOrdering Facility: [facility] Address: [address] [place] [address] Performed By: #### 5 0190-8, 9, 2275-10, 2284-02 ####[facility] LABCLIA [id number] [place] [address] [place] E COLI SHIGA TOXIN EIAon E COLI SHIGA TOXIN EIA E coli Shiga Toxin EIA [facility] E COLI SHIGA TOXIN EIA Negative NO [facility] E COLI SHIGA TOXIN EIA [facility]formed [facility] E COLI SHIGA TOXIN EIA [address] [place], [place] [id number] [facility] E COLI SHIGA TOXIN EIA [facility] Rn: Gallito Garrett PhD, Phone: [phone] [facility] CLINISYNC [facility] HbA1c (Bld) [Mass fraction]o n 12-25-2024 Interpretation and review of laboratory results Normal [facility] - Hematology and Cell countson 12-25-2024 HbA1c (Bld) [Mass fraction] 5.7 % [facility] CBC W Auto Differential pane l (Bld)on 12-20-2024 Basophils (Bld) [#/Vol] 10*3/uL Normal <0.[address] [facility] Comment on above: Order Comment: Speci men Type: BLOOD SPECIMENOrdering Facility: [facility] Address: [address] [place] [address] Performed By: #### 5 7021-8 ####[facility] LABCLIA [id number] [place], [place] [address] Basophils/100 WBC (Bld) 0.0 % Normal [facility] Comment on above: Order Comment: Speci men Type: BLOOD SPECIMENOrdering Facility: [facility] Address: [address] [place] [address] Performed By: #### 5 7021-8 ####[facility] LABCLIA [id number] [place] [address] Differential cell count method Nom (Bld) Auto Normal [facility] Comment on above: Order Comment: Speci men Type: BLOOD SPECIMENOrdering Facility: [facility] Address: [address] [place] [address] Performed By: #### 5 7021-8 ####[facility] LABCLIA [id number] [place] [address] Eosinophils (Bld) [#/Vol] 0.04 10*3/uL Normal <0.46 [facility] Comment on above: Order Comment: Speci men Type: BLOOD SPECIMENOrdering Facility: [facility] Address: [address] [place] [address] Performed By: #### 5 7021-8 ####[facility] LABCLIA [id number] [place] [address] Eosinophils/100 WBC (Bld) 0.8 % Normal [facility] Comment on above: Order Comment: Speci men Type: BLOOD SPECIMENOrdering Facility: [facility] Address: [address] [place] [address] Performed By: #### 5 7021-8 ####[facility] LABCLIA [id number] [place] [address] Erythrocyte distribution width (RBC) [Ratio] 14.3 % Normal 11.5-15.0 [facility] Comment on above: Order Comment: Speci men Type: BLOOD SPECIMENOrdering Facility: [facility] Address: [address] [place] [address] Performed By: #### 5 7021-8 ####[facility] LABCLIA [id number] [place] [address] Hematocrit (Bld) [Volume fraction] 33.8 % Low 36.0-46.0 [facility] Comment on above: Order Comment: Speci men Type: BLOOD SPECIMENOrdering Facility: [facility] Address: [address] [place] [address] Performed By: #### 5 7021-8 ####[facility] LABIA [id number] [place] [address] Hemoglobin (Bld) [Mass/Vol] 10.8 g/dL Low 11.5-15.5 [facility] Comment on above: Order Comment: Speci men Type: BLOOD SPECIMENOrdering Facility: [facility] Address: [address] [place] [address] Performed By: #### 5 7021-8 ####[facility] LABCLIA [id number] [place] [address] Immature granulocytes (Bld) [#/Vol] 10*3/uL Normal <0.10 [facility] Comment on above: Order Comment: Speci men Type: BLOOD SPECIMENOrdering Facility: [facility] Address: [address] [place] [address] Performed By: #### 5 7021-8 ####[facility] LABCLIA [id number] [place] [address] Immature granulocytes/100 WBC (Bld) 0.4 % Normal [facility] Comment on above: Order Comment: Speci men Type: BLOOD SPECIMENOrdering Facility: [facility] Address: [address] [place] [address] Performed By: #### 5 7021-8 ####[facility] LABCLIA [id number] [place] [address] Lymphocytes (Bld) [#/Vol] 1.86 10*3/uL Normal 1.00-4.00 [facility] Comment on above: Order Comment: Speci men Type: BLOOD SPECIMENOrdering Facility: [facility] Address: [address] [place] [address] Performed By: #### 5 7021-8 ####[facility] LABCLIA [id number] [place] [address] Lymphocytes/100 WBC (Bld) 38.9 % Normal [facility] Comment on above: Order Comment: Speci men Type: BLOOD SPECIMENOrdering Facility: [facility] Address: [address] [place] [address] Performed By: #### 5 7021-8 ####[facility] LABCLIA [id number] [place] [address] MCH (RBC) [Entitic mass] 32.5 pg Normal 26.0-34.0 [facility] Comment on above: Order Comment: Speci men Type: BLOOD SPECIMENOrdering Facility: [facility] Address: [address] [place] [address] Performed By: #### 5 7021-8 ####[facility] LABCLIA [id number] [place] [address] MCHC (RBC) [Mass/Vol] 32.0 g/dL Normal 30.5-36.0 [facility] Comment on above: Order Comment: Speci men Type: BLOOD SPECIMENOrdering Facility: [facility] Address: [address] [place] [address] Performed By: #### 5 7021-8 ####[facility] LABCLIA [id number] [place] [address] MCV (RBC) [Entitic vol] 101.8 fL High 80.0-100.[address] [facility] Comment on above: Order Comment: Speci men Type: BLOOD SPECIMENOrdering Facility: [facility] Address: [address] [place] [address] Performed By: #### 5 7021-8 ####[facility] LABCLIA [id number] [place] [address] Monocytes (Bld) [#/Vol] 0.22 10*3/uL Normal <0.87 [facility] Comment on above: Order Comment: Speci men Type: BLOOD SPECIMENOrdering Facility: [facility] Address: [address] [place] [address] Performed By: #### 5 7021-8 ####[facility] LABCLIA [id number] [place] [address] Monocytes/100 WBC (Bld) 4.6 % Normal [facility] Comment on above: Order Comment: Speci men Type: BLOOD SPECIMENOrdering Facility: [facility] Address: [address] [place] [address] Performed By: #### 5 7021-8 ####[facility] LABCLIA [id number] [place] [address] Neutrophils (Bld) [#/Vol] 2.64 10*3/uL Normal 1.45-7.50 [facility] Comment on above: Order Comment: Speci men Type: BLOOD SPECIMENOrdering Facility: [facility] Address: [address] [place] [address] Performed By: #### 5 7021-8 ####[facility] LABCLIA [id number] [place] [address] Neutrophils/100 WBC (Bld) 55.3 % Normal [facility] Comment on above: Order Comment: Speci men Type: BLOOD SPECIMENOrdering Facility: [facility] Address: [address] [place] [address] Performed By: #### 5 7021-8 ####[facility] LABCLIA [id number] [place] [address] Nucleated RBC (Bld) [#/Vol] 10*3/uL Normal <0.01 [facility] Comment on above: Order Comment: Speci men Type: BLOOD SPECIMENOrdering Facility: [facility] Address: [address] [place] [address] Performed By: #### 5 7021-8 ####[facility] LABCLIA [id number] [place] [address] Nucleated RBC/100 WBC (Bld) [Ratio] 0.0 /100 WBC Normal [facility] Comment on above: Order Comment: Speci men Type: BLOOD SPECIMENOrdering Facility: [facility] Address: [address] [place] [address] Performed By: #### 5 7021-8 ####[facility] LABIA [id number] [place] [address] Platelet mean volume (Bld) [Entitic vol] 8.9 fL Low 9.0-12.7 [facility] Comment on above: Order Comment: Speci men Type: BLOOD SPECIMENOrdering Facility: [facility] Address: [address] [place] [address] Performed By: #### 5 7021-8 ####[facility] LABCLIA [id number] [place] [address] Platelets (Bld) [#/Vol] 156 10*3/uL Normal 150-400 [facility] Comment on above: Order Comment: Speci men Type: BLOOD SPECIMENOrdering Facility: [facility] Address: [address] [place] [address] Performed By: #### 5 7021-8 ####[facility] LABIA [id number] [place] [address] RBC (Bld) [#/Vol] 3.32 10*6/uL Low 3.90-5.20 [facility] Comment on above: Order Comment: Speci men Type: BLOOD SPECIMENOrdering Facility: [facility] Address: [address] [place] [address] Performed By: #### 5 7021-8 ####[facility] LABIA [id number] [place] [address] WBC (Bld) [#/Vol] 4.78 10*3/uL Normal 3.70-11.00 [facility] Comment on above: Order Comment: Speci men Type: BLOOD SPECIMENOrdering Facility: [facility] Address: [address] [place] [address] Performed By: #### 5 7021-8 ####[facility] LABIA [id number] [place] [address] CT CHEST ROMULO Hagen 12-12-[address] [address] [address] Scan Report Signed Patient: ANDREI FISH MR#: [id number] : 1950 Acct:[id number] Age/Sex: 74 / F ADM Date: 12/12/24 Loc: CT Attending Dr: Stephanie Dumont NP Ordering Physician: Stephanie Dumont NP Date of Service: 12/12/24 Procedure(s): CT chest wo con Accession Number(s): [id number] cc: Stephanie Dumont NP [address] [address] Patient Name: ANDREI FISH MRN: [facility]:[id number] date: 1950 Sex: F Assigned Patient Location: CT Current Patient Location: CT Accession/Order Number: [id number] Exam Date: 12/12/2024 16:06 Report Date: 12/12/2024 [...] Peralta M.D. 12/12/2024 4:12 PM Dictation Location: [facility] Electronically authenticated by: [id number] Y Date: 12/12/2024 16:12 Dictated By: Valentin Peralta D.O. Signed By: 12/12/24 1614 DD/ 11 TD/TT: [employer] Assistant Manager: [facility] Radiology, Radiologist, - 12/12/2024 [place] [address] CT Scan Report Signed Patient: ANDREI FISH MR#: [id number] : 1950 Acct:[id number] Age/Sex: 74 / F ADM Date: 12/12/24 Loc: CT Attending Dr: Stephanie Dumont NP Ordering Physician: Stephanie Dumont NP Date of Service: 12/12/24 Procedure(s): CT chest wo con Accession Number(s): [id number] cc: Stephanie Dumont NP [facility] [place] [address] Patient Name: ANDREI FISH MRN: [facility]:[id number] date: 1950 Sex: F Assigned Patient Location: CT Current Patient Location: CT Accession/Order Number: [id number] Exam Date: 12/12/2024 16:06 Report Date: 12/12/2024 [...] Peralta M.D. 12/12/2024 4:12 PM Dictation Location: [facility] Electronically authenticated by: [id number] Y Date: 12/12/2024 16:12 Dictated By: Valentin Peralta D.O. Signed By: 12/12/241613 DD/ 11 TD/TT: [employer] Assistant Manager: [facility] Radiology Study observation (narrative) [facility] CT CHEST WO CONOrdered By: Jerrod parekhiologdoug Radiology on 12-12-2024 [facility] Work Phone: CBC W Auto Differential pane l (Bld)on 2024 Basophils (Bld) [#/Vol] 10*3/uL Normal <0.[address] [facility] Comment on above: Order Comment: Speci men Type: BLOOD SPECIMENOrdering Facility: [facility] Address: [address] [place] [address] Performed By: #### 1 4196-0, 76050-6 ####[facility] LABCLIA [id number] [place] [address] Basophils/100 WBC (Bld) 0.2 % Normal [facility] Comment on above: Order Comment: Speci men Type: BLOOD SPECIMENOrdering Facility: [facility] Address: [address] [place] [address] Performed By: #### 1 4196-0, 96580-0 ####[facility] LABCLIA [id number] [place] [address] Differential cell count method Nom (Bld) Auto Normal [facility] Comment on above: Order Comment: Speci men Type: BLOOD SPECIMENOrdering Facility: [facility] Address: [address] [place] [address] Performed By: #### 1 4196-0, 41248-7 ####[facility] LABCLIA [id number] [place] [address] Eosinophils (Bld) [#/Vol] 0.05 10*3/uL Normal <0.46 [facility] Comment on above: Order Comment: Speci men Type: BLOOD SPECIMENOrdering Facility: [facility] Address: [address] [place] [address] Performed By: #### 1 4196-0, 19221-8 ####[facility] LABCLIA [id number] [place] [address] Eosinophils/100 WBC (Bld) 0.9 % Normal [facility] Comment on above: Order Comment: Speci men Type: BLOOD SPECIMENOrdering Facility: [facility] Address: [address] [place] [address] Performed By: #### 1 4196-0, 46486-6 ####[facility] LABCLIA [id number] [place] [address] Erythrocyte distribution width (RBC) [Ratio] 14.0 % Normal 11.5-15.0 [facility] Comment on above: Order Comment: Speci men Type: BLOOD SPECIMENOrdering Facility: [facility] Address: [address] [place] [address] Performed By: #### 1 4196-0, 56470-4 ####[facility] LABCLIA [id number] [place] [address] Hematocrit (Bld) [Volume fraction] 32.4 % Low 36.0-46.0 [facility] Comment on above: Order Comment: Speci men Type: BLOOD SPECIMENOrdering Facility: [facility] Address: [address] [place] [address] Performed By: #### 1 4196-0, 45756-5 ####[facility] LABCLIA [id number] [place] [address] Hemoglobin (Bld) [Mass/Vol] 10.4 g/dL Low 11.5-15.5 [facility] Comment on above: Order Comment: Speci men Type: BLOOD SPECIMENOrdering Facility: [facility] Address: [address] [place] [address] Performed By: #### 1 4196-0, 63733-7 ####[facility] LABCLIA [id number] [place] [address] Immature granulocytes (Bld) [#/Vol] 10*3/uL Normal <0.10 [facility] Comment on above: Order Comment: Speci men Type: BLOOD SPECIMENOrdering Facility: [facility] Address: [address] [place] [address] Performed By: #### 1 4196-0, 83727-2 ####[facility] LABIA [id number] [place] [address] Immature granulocytes/100 WBC (Bld) 0.2 % Normal [facility] Comment on above: Order Comment: Speci men Type: BLOOD SPECIMENOrdering Facility: [facility] Address: [address] [place] [address] Performed By: #### 1 4196-0, 94076-5 ####[facility] LABIA [id number] [place] [address] Lymphocytes (Bld) [#/Vol] 2.47 10*3/uL Normal 1.00-4.00 [facility] Comment on above: Order Comment: Speci men Type: BLOOD SPECIMENOrdering Facility: [facility] Address: [address] [place] [address] Performed By: #### 1 4196-0, 18094-3 ####[facility] LABIA [id number] [place] [address] Lymphocytes/100 WBC (Bld) 43.2 % Normal [facility] Comment on above: Order Comment: Speci men Type: BLOOD SPECIMENOrdering Facility: [facility] Address: [address] [place] [address] Performed By: #### 1 4196-0, 93841-8 ####[facility] LABIA [id number] [place] [address] MCH (RBC) [Entitic mass] 32.3 pg Normal 26.0-34.0 [facility] Comment on above: Order Comment: Speci men Type: BLOOD SPECIMENOrdering Facility: [facility] Address: [address] [place] [address] Performed By: #### 1 4196-0, 96654-3 ####[facility] LABIA [id number] [place] [address] MCHC (RBC) [Mass/Vol] 32.1 g/dL Normal 30.5-36.0 [facility] Comment on above: Order Comment: Speci men Type: BLOOD SPECIMENOrdering Facility: [facility] Address: [address] [place] [address] Performed By: #### 1 4196-0, 18339-9 ####[facility] LABIA [id number] [place] [address] MCV (RBC) [Entitic vol] 100.6 fL High 80.0-100.[address] [facility] Comment on above: Order Comment: Speci men Type: BLOOD SPECIMENOrdering Facility: [facility] Address: [address] [place] [address] Performed By: #### 1 4196-0, 71968-3 ####[facility] LABIA [id number] [place] [address] Monocytes (Bld) [#/Vol] 0.28 10*3/uL Normal <0.87 [facility] Comment on above: Order Comment: Speci men Type: BLOOD SPECIMENOrdering Facility: [facility] Address: [address] [place] [address] Performed By: #### 1 4196-0, 57161-5 ####[facility] LABCLIA [id number] [place] [address] Monocytes/100 WBC (Bld) 4.9 % Normal [facility] Comment on above: Order Comment: Speci men Type: BLOOD SPECIMENOrdering Facility: [facility] Address: [address] [place] [address] Performed By: #### 1 4196-0, 79222-2 ####[facility] LABCLIA [id number] [place] [address] Neutrophils (Bld) [#/Vol] 2.90 10*3/uL Normal 1.45-7.50 [facility] Comment on above: Order Comment: Speci men Type: BLOOD SPECIMENOrdering Facility: [facility] Address: [address] [place] [address] Performed By: #### 1 4196-0, 79784-1 ####[facility] LABCLIA [id number] [place] [address] Neutrophils/100 WBC (Bld) 50.6 % Normal [facility] Comment on above: Order Comment: Speci men Type: BLOOD SPECIMENOrdering Facility: [facility] Address: [address] [place] [address] Performed By: #### 1 4196-0, 21559-1 ####[facility] LABCLIA [id number] [place] [address] Nucleated RBC (Bld) [#/Vol] 10*3/uL Normal <0.01 [facility] Comment on above: Order Comment: Speci men Type: BLOOD SPECIMENOrdering Facility: [facility] Address: [address] [place] [address] Performed By: #### 1 4196-0, 15660-3 ####[facility] LABCLIA [id number] [place] [address] Nucleated RBC/100 WBC (Bld) [Ratio] 0.0 /100 WBC Normal [facility] Comment on above: Order Comment: Speci men Type: BLOOD SPECIMENOrdering Facility: [facility] Address: [address] [place] [address] Performed By: #### 1 4196-0, 86729-7 ####[facility] LABCLIA [id number] [place] [address] Platelet mean volume (Bld) [Entitic vol] 9.2 fL Normal 9.0-12.7 [facility] Comment on above: Order Comment: Speci men Type: BLOOD SPECIMENOrdering Facility: [facility] Address: [address] [place] [address] Performed By: #### 1 4196-0, 14129-1 ####[facility] LABIA [id number] [place] [address] Platelets (Bld) [#/Vol] 165 10*3/uL Normal 150-400 [facility] Comment on above: Order Comment: Speci men Type: BLOOD SPECIMENOrdering Facility: [facility] Address: [address] [place] [address] Performed By: #### 1 4196-0, 70919-1 ####[facility] LABIA [id number] [place] [address] RBC (Bld) [#/Vol] 3.22 10*6/uL Low 3.90-5.20 [facility] Comment on above: Order Comment: Speci men Type: BLOOD SPECIMENOrdering Facility: [facility] Address: [address] [place] [address] Performed By: #### 1 4196-0, 08181-0 ####[facility] LABIA [id number] [place] [address] WBC (Bld) [#/Vol] 5.72 10*3/uL Normal 3.70-11.00 [facility] Comment on above: Order Comment: Speci men Type: BLOOD SPECIMENOrdering Facility: [facility] Address: [address] [place] [address] Performed By: #### 1 4196-0, 26451-2 ####[facility] LABCLIA [id number] [place] [address] Comprehensive metabolic 2000 panelon 2024 Albumin [Mass/Vol] 3.7 g/dL Low 3.9-4.9 [facility] Comment on above: Order Comment: Speci men Type: BLOOD SPECIMENOrdering Facility: [facility] Address: [address] [place] [address] Performed By: #### 2 4323-8 ####[facility] LABCLIA [id number] [place] [address] ALP [Catalytic activity/Vol] 81 U/L Normal 34-123 [facility] Comment on above: Order Comment: Speci men Type: BLOOD SPECIMENOrdering Facility: [facility] Address: [address] [place] [address] Performed By: #### 2 4323-8 ####[facility] LABCLIA [id number] [place] [address] ALT [Catalytic activity/Vol] 12 U/L Normal 7-38 [facility] Comment on above: Order Comment: Speci men Type: BLOOD SPECIMENOrdering Facility: [facility] Address: [address] [place] [address] Performed By: #### 2 4323-8 ####[facility] LABCLIA [id number] [place] [address] Anion gap [Moles/Vol] 8 mmol/L Normal 8-15 [facility] Comment on above: Order Comment: Speci men Type: BLOOD SPECIMENOrdering Facility: [facility] Address: [address] [place] [address] Performed By: #### 2 4323-8 ####[facility] LABCLIA [id number] [place] [address] AST [Catalytic activity/Vol] 21 U/L Normal 13-35 [facility] Comment on above: Order Comment: Speci men Type: BLOOD SPECIMENOrdering Facility: [facility] Address: [address] [place] [address] Performed By: #### 2 4323-8 ####[facility] LABCLIA [id number] [place] [address] Bilirubin [Mass/Vol] 0.4 mg/dL Normal 0.2-1.3 [facility] Comment on above: Order Comment: Speci men Type: BLOOD SPECIMENOrdering Facility: [facility] Address: [address] [place] [address] Performed By: #### 2 4323-8 ####[facility] LABCLIA [id number] [place] [address] Calcium [Mass/Vol] 10.0 mg/dL Normal 8.5-10.2 [facility] Comment on above: Order Comment: Speci men Type: BLOOD SPECIMENOrdering Facility: [facility] Address: [address] [place] [address] Performed By: #### 2 4323-8 ####[facility] LABCLIA [id number] [place] [address] Chloride [Moles/Vol] 106 mmol/L Normal 98-107 [facility] Comment on above: Order Comment: Speci men Type: BLOOD SPECIMENOrdering Facility: [facility] Address: [address] [place] [address] Performed By: #### 2 4323-8 ####[facility] LABCLIA [id number] [place] [address] CO2 [Moles/Vol] 23 mmol/L Normal 22-30 [facility] Comment on above: Order Comment: Speci men Type: BLOOD SPECIMENOrdering Facility: [facility] Address: [address] [place] [address] Performed By: #### 2 4323-8 ####[facility] LABCLIA [id number] [place] [address] Creatinine [Mass/Vol] 1.16 mg/dL High 0.58-0.96 [facility] Comment on above: Order Comment: Fabricio tapia Type: BLOOD SPECIMENOrdering Facility: [facility] Address: [address] [place] [address] Performed By: #### 2 4323-8 ####[facility] LABCLIA [id number] [place] [address] Creatinine and Glomerular filtration rate.predicted panel (S/P/Bld) 50 mL/min/1.73m??? Low >=60 [facility] Comment on above: Order Comment: Fabricio tapia Type: BLOOD SPECIMENOrdering Facility: [facility] Address: [address] [place] [address] Result Comment: Miryam mated Glomerular Filtration Rate [...] actual GFR. Performed By: #### 2 4323-8 ####[facility] LABCLIA [id number] [place] [address] Glucose [Mass/Vol] 98 mg/dL Normal 74-99 [facility] Comment on above: Order Comment: Fabricio tapia Type: BLOOD SPECIMENOrdering Facility: [facility] Address: [address] [place] [address] Result Comment: The [place] [employer] (ADA) provides guidance for cutoff [...] Standards of Medical Care in Diabetes 2016, [place] [employer]. Diabetes Care. 2016.39(Suppl 1). Performed By: #### 2 4323-8 ####[facility] LABCLIA [id number] [place] [address] Potassium [Moles/Vol] 4.9 mmol/L Normal 3.7-5.1 [facility] Comment on above: Order Comment: Speci men Type: BLOOD SPECIMENOrdering Facility: [facility] Address: [address] [place] [address] Performed By: #### 2 4323-8 ####[facility] LABCLIA [id number] [place] [address] Protein [Mass/Vol] 7.1 g/dL Normal 6.3-8.0 [facility] Comment on above: Order Comment: Speci men Type: BLOOD SPECIMENOrdering Facility: [facility] Address: [address] [place] [address] Performed By: #### 2 4323-8 ####[facility] LABCLIA [id number] [place] [address] Sodium [Moles/Vol] 137 mmol/L Normal 136-144 [facility] Comment on above: Order Comment: Speci men Type: BLOOD SPECIMENOrdering Facility: [facility] Address: [address] [place] [address] Performed By: #### 2 4323-8 ####[facility] LABCLIA [id number] [place] [address] Urea nitrogen [Mass/Vol] 36 mg/dL High 7-21 [facility] Comment on above: Order Comment: Speci men Type: BLOOD SPECIMENOrdering Facility: [facility] Address: [address] [place] [address] Performed By: #### 2 4323-8 ####[facility] LABCLIA [id number] [place] [address] EPO SerPl-aCncon 2024 Erythropoietin (EPO) Qn 66.5 mIU/mL High 2.6-18.5 [facility] Comment on above: Order Comment: Speci men Type: BLOOD SPECIMENOrdering Facility: [facility] Address: [address] [place] [address] Performed By: #### 1 5061-5 ####[facility] LABIA [id number] [place] [address] [place] Ferritin SerPl[facility] 20[facility] Ferritin [Mass/Vol] 105.0 ng/mL Normal 14.7-205.1 [facility] Comment on above: Order Comment: Speci men Type: BLOOD SPECIMENOrdering Facility: [facility] Address: [address] [place] [address] Performed By: #### 5 0190-8, 2132-9, 2284-8, 2276-4 ####[facility] LABIA [id number] [place] [address] [place] Folate SerPl-mCncon 12-07-19 25 Folate [Mass/Vol] 8.1 ng/mL Normal >4.7 [facility] Comment on above: Order Comment: Speci men Type: BLOOD SPECIMENOrdering Facility: [facility] Address: [address] [place] [address] Performed By: #### 5 0190-8, 2132-9, 2284-8, 2276-4 ####[facility] LABIA [id number] [place] [address] [place] Iron and Iron binding capaci ty panelon 2024 Iron [Mass/Vol] 71 ug/dL Normal 41-186 [facility] Comment on above: Order Comment: Speci men Type: BLOOD SPECIMENOrdering Facility: [facility] Address: [address] [place] [address] Performed By: #### 5 0190-8, 2131-9, 4-8, 2276-4 ####[facility] LABCLIA [id number] [place] [address] [place] Iron binding capacity [Mass/Vol] 329 ug/dL Normal 232-386 [facility] Comment on above: Order Comment: Speci men Type: BLOOD SPECIMENOrdering Facility: [facility] Address: [address] [place] [address] Performed By: #### 5 0190-8, 2131-9, 2283-8, 6-4 ####[facility] LABIA [id number] [address] [place] Iron/TIBC [Molar ratio] 21.6 % Normal 15.0-57.0 [facility] Comment on above: Order Comment: Speci men Type: BLOOD SPECIMENOrdering Facility: [facility] Address: [address] [place] [address] Performed By: #### 5 0190-8, 2131-9, 2283-8, 6-4 ####[facility] LABIA [id number] [place] [address] [place] Retics #on 2024 Reticulocytes (Bld) [#/Vol] 0.01891 10*3/uL Normal 0.018-0.100 [facility] Comment on above: Order Comment: Speci men Type: BLOOD SPECIMENOrdering Facility: [facility] Address: [address] [place] [address] Performed By: #### 1 4196-0, 27787-9 ####[facility] LABCLIA [id number] [place] [address] Reticulocytes (Bld) [#/Vol]o n 2024 Reticulocytes/100 RBC (Bld) 1.8 % Normal 0.4-2.0 [facility] Comment on above: Order Comment: Speci men Type: BLOOD SPECIMENOrdering Facility: [facility] Address: [address] [place] [address] Performed By: #### 1 4196-0, 46706-0 ####[facility] LABCLIA [id number] [place] [address] Vit B12 [facility] 12-06- 025 Cobalamin (Vitamin B12) [Mass/Vol] 820 pg/mL Normal 232-1245 [facility] Comment on above: Order Comment: Speci men Type: BLOOD SPECIMENOrdering Facility: [facility] Address: [address] [place] [address] Performed By: #### 5 0190-8, 2132-9, 2284-8, 2276-4 ####[facility] LABCLIA [id number] [place] [address] [place] CBC W Auto Differential pane l (Bld)on 11-22-2024 Basophils (Bld) [#/Vol] 10*3/uL Normal <0.[address] [facility] Comment on above: Order Comment: Speci men Type: BLOOD SPECIMENOrdering Facility: [facility] Address: [address] [place] [address] Performed By: #### 5 7021-8 ####[facility] LABCLIA [id number] [place] [address] Basophils/100 WBC (Bld) 0.3 % Normal [facility] Comment on above: Order Comment: Speci men Type: BLOOD SPECIMENOrdering Facility: [facility] Address: [address] [place] [address] Performed By: #### 5 7021-8 ####[facility] LABCLIA [id number] [place] [address] Differential cell count method Nom (Bld) Auto Normal [facility] Comment on above: Order Comment: Speci men Type: BLOOD SPECIMENOrdering Facility: [facility] Address: [address] [place] [address] Performed By: #### 5 7021-8 ####[facility] LABCLIA [id number] [place] [address] Eosinophils (Bld) [#/Vol] 0.06 10*3/uL Normal <0.46 [facility] Comment on above: Order Comment: Speci men Type: BLOOD SPECIMENOrdering Facility: [facility] Address: [address] [place] [address] Performed By: #### 5 7021-8 ####[facility] LABCLIA [id number] [place] [address] Eosinophils/100 WBC (Bld) 1.0 % Normal [facility] Comment on above: Order Comment: Speci men Type: BLOOD SPECIMENOrdering Facility: [facility] Address: [address] [place] [address] Performed By: #### 5 7021-8 ####[facility] LABCLIA [id number] [place] [address] Erythrocyte distribution width (RBC) [Ratio] 14.3 % Normal 11.5-15.0 [facility] Comment on above: Order Comment: Speci men Type: BLOOD SPECIMENOrdering Facility: [facility] Address: [address] [place] [address] Performed By: #### 5 7021-8 ####[facility] LABCLIA [id number] [place] [address] Hematocrit (Bld) [Volume fraction] 30.9 % Low 36.0-46.0 [facility] Comment on above: Order Comment: Speci men Type: BLOOD SPECIMENOrdering Facility: [facility] Address: [address] [place] [address] Performed By: #### 5 7021-8 ####[facility] LABCLIA [id number] [place] [address] Hemoglobin (Bld) [Mass/Vol] 9.7 g/dL Low 11.5-15.5 [facility] Comment on above: Order Comment: Speci men Type: BLOOD SPECIMENOrdering Facility: [facility] Address: [address] [place] [address] Performed By: #### 5 7021-8 ####[facility] LABCLIA [id number] [place] [address] Immature granulocytes (Bld) [#/Vol] 10*3/uL Normal <0.10 [facility] Comment on above: Order Comment: Speci men Type: BLOOD SPECIMENOrdering Facility: [facility] Address: [address] [place] [address] Performed By: #### 5 7021-8 ####[facility] LABCLIA [id number] [place] [address] Immature granulocytes/100 WBC (Bld) 0.3 % Normal [facility] Comment on above: Order Comment: Speci men Type: BLOOD SPECIMENOrdering Facility: [facility] Address: [address] [place] [address] Performed By: #### 5 7021-8 ####[facility] LABCLIA [id number] [place] [address] Lymphocytes (Bld) [#/Vol] 2.22 10*3/uL Normal 1.00-4.00 [facility] Comment on above: Order Comment: Speci men Type: BLOOD SPECIMENOrdering Facility: [facility] Address: [address] [place] [address] Performed By: #### 5 7021-8 ####[facility] LABCLIA [id number] [place] [address] Lymphocytes/100 WBC (Bld) 37.9 % Normal [facility] Comment on above: Order Comment: Speci men Type: BLOOD SPECIMENOrdering Facility: [facility] Address: [address] [place] [address] Performed By: #### 5 7021-8 ####[facility] LABCLIA [id number] [place] [address] MCH (RBC) [Entitic mass] 32.0 pg Normal 26.0-34.0 [facility] Comment on above: Order Comment: Speci men Type: BLOOD SPECIMENOrdering Facility: [facility] Address: [address] [place] [address] Performed By: #### 5 7021-8 ####[facility] LABCLIA [id number] [place] [address] MCHC (RBC) [Mass/Vol] 31.4 g/dL Normal 30.5-36.0 [facility] Comment on above: Order Comment: Speci men Type: BLOOD SPECIMENOrdering Facility: [facility] Address: [address] [place] [address] Performed By: #### 5 7021-8 ####[facility] LABIA [id number] [place] [address] MCV (RBC) [Entitic vol] 102.0 fL High 80.0-100.[address] [facility] Comment on above: Order Comment: Speci men Type: BLOOD SPECIMENOrdering Facility: [facility] Address: [address] [place] [address] Performed By: #### 5 7021-8 ####[facility] LABCLIA [id number] [place] [address] Monocytes (Bld) [#/Vol] 0.35 10*3/uL Normal <0.87 [facility] Comment on above: Order Comment: Speci men Type: BLOOD SPECIMENOrdering Facility: [facility] Address: [address] [place] [address] Performed By: #### 5 7021-8 ####[facility] LABIA [id number] [place] [address] Monocytes/100 WBC (Bld) 6.0 % Normal [facility] Comment on above: Order Comment: Speci men Type: BLOOD SPECIMENOrdering Facility: [facility] Address: [address] [place] [address] Performed By: #### 5 7021-8 ####[facility] LABCLIA [id number] [place] [address] Neutrophils (Bld) [#/Vol] 3.18 10*3/uL Normal 1.45-7.50 [facility] Comment on above: Order Comment: Speci men Type: BLOOD SPECIMENOrdering Facility: [facility] Address: [address] [place] [address] Performed By: #### 5 7021-8 ####[facility] LABCLIA [id number] [place] [address] Neutrophils/100 WBC (Bld) 54.5 % Normal [facility] Comment on above: Order Comment: Speci men Type: BLOOD SPECIMENOrdering Facility: [facility] Address: [address] [place] [address] Performed By: #### 5 7021-8 ####[facility] LABCLIA [id number] [place] [address] Nucleated RBC (Bld) [#/Vol] 10*3/uL Normal <0.01 [facility] Comment on above: Order Comment: Speci men Type: BLOOD SPECIMENOrdering Facility: [facility] Address: [address] [place] [address] Performed By: #### 5 7021-8 ####[facility] LABCLIA [id number] [place] [address] Nucleated RBC/100 WBC (Bld) [Ratio] 0.0 /100 WBC Normal [facility] Comment on above: Order Comment: Speci men Type: BLOOD SPECIMENOrdering Facility: [facility] Address: [address] [place] [address] Performed By: #### 5 7021-8 ####[facility] LABCLIA [id number] [place] [address] Platelet mean volume (Bld) [Entitic vol] 8.9 fL Low 9.0-12.7 [facility] Comment on above: Order Comment: Speci men Type: BLOOD SPECIMENOrdering Facility: [facility] Address: [address] [place] [address] Performed By: #### 5 7021-8 ####[facility] LABCLIA [id number] [place] [address] Platelets (Bld) [#/Vol] 168 10*3/uL Normal 150-400 [facility] Comment on above: Order Comment: Speci men Type: BLOOD SPECIMENOrdering Facility: [facility] Address: [address] [place] [address] Performed By: #### 5 7021-8 ####[facility] LABIA [id number] [place] [address] RBC (Bld) [#/Vol] 3.03 10*6/uL Low 3.90-5.20 [facility] Comment on above: Order Comment: Speci men Type: BLOOD SPECIMENOrdering Facility: [facility] Address: [address] [place] [address] Performed By: #### 5 7021-8 ####[facility] LABIA [id number] [place] [address] WBC (Bld) [#/Vol] 5.85 10*3/uL Normal 3.70-11.00 [facility] Comment on above: Order Comment: Speci men Type: BLOOD SPECIMENOrdering Facility: [facility] Address: [address] [place] [address] Performed By: #### 5 7021-8 ####[facility] LABIA [id number] [place] [address] CNNURSEon 11-22-2024 CNNURSE Normal [facility] CNOVSPon 11-22-2024 CNOVSP Normal [facility] Comprehensive metabolic 2000 panelon 05-16-2025 Albumin [Mass/Vol] 3.8 g/dL Low 3.9-4.9 [facility] Comment on above: Order Comment: Speci men Type: BLOOD SPECIMENOrdering Facility: [facility] Address: [address] [place] [address] Performed By: #### 2 4323-8 ####[facility] LABCLIA [id number] [place] [address] ALP [Catalytic activity/Vol] 83 U/L Normal 34-123 [facility] Comment on above: Order Comment: Speci men Type: BLOOD SPECIMENOrdering Facility: [facility] Address: [address] [place] [address] Performed By: #### 2 4323-8 ####[facility] LABCLIA [id number] [place] [address] ALT [Catalytic activity/Vol] 11 U/L Normal 7-38 [facility] Comment on above: Order Comment: Speci men Type: BLOOD SPECIMENOrdering Facility: [facility] Address: [address] [place] [address] Performed By: #### 2 4323-8 ####[facility] LABCLIA [id number] [place] [address] Anion gap [Moles/Vol] 9 mmol/L Normal 8-15 [facility] Comment on above: Order Comment: Speci men Type: BLOOD SPECIMENOrdering Facility: [facility] Address: [address] [place] [address] Performed By: #### 2 4323-8 ####[facility] LABCLIA [id number] [place] [address] AST [Catalytic activity/Vol] 20 U/L Normal 13-35 [facility] Comment on above: Order Comment: Speci men Type: BLOOD SPECIMENOrdering Facility: [facility] Address: [address] [place] [address] Performed By: #### 2 4323-8 ####[facility] LABCLIA [id number] [place] [address] Bilirubin [Mass/Vol] 0.4 mg/dL Normal 0.2-1.3 [facility] Comment on above: Order Comment: Speci men Type: BLOOD SPECIMENOrdering Facility: [facility] Address: [address] [place] [address] Performed By: #### 2 4323-8 ####[facility] LABCLIA [id number] [place] [address] Calcium [Mass/Vol] 9.4 mg/dL Normal 8.5-10.2 [facility] Comment on above: Order Comment: Speci men Type: BLOOD SPECIMENOrdering Facility: [facility] Address: [address] [place] [address] Performed By: #### 2 4323-8 ####[facility] LABCLIA [id number] [place] [address] Chloride [Moles/Vol] 111 mmol/L High 98-107 [facility] Comment on above: Order Comment: Speci men Type: BLOOD SPECIMENOrdering Facility: [facility] Address: [address] [place] [address] Performed By: #### 2 4323-8 ####[facility] LABCLIA [id number] [place] [address] CO2 [Moles/Vol] 22 mmol/L Normal 22-30 [facility] Comment on above: Order Comment: Speci men Type: BLOOD SPECIMENOrdering Facility: [facility] Address: [address] [place] [address] Performed By: #### 2 4323-8 ####[facility] LABCLIA [id number] [place] [address] Creatinine [Mass/Vol] 1.30 mg/dL High 0.58-0.96 [facility] Comment on above: Order Comment: Speci men Type: BLOOD SPECIMENOrdering Facility: [facility] Address: [address] [place] [address] Performed By: #### 2 4323-8 ####[facility] LABCLIA [id number] [place] [address] Creatinine and Glomerular filtration rate.predicted panel (S/P/Bld) 44 mL/min/1.73m??? Low >=60 [facility] Comment on above: Order Comment: Fabricio tapia Type: BLOOD SPECIMENOrdering Facility: [facility] Address: [address] [place] [address] Result Comment: Miryam mated Glomerular Filtration Rate [...] actual GFR. Performed By: #### 2 4323-8 ####[facility] LABCLIA [id number] [place] [address] Glucose [Mass/Vol] 113 mg/dL High 74-99 [facility] Comment on above: Order Comment: Fabricio tapia Type: BLOOD SPECIMENOrdering Facility: [facility] Address: [address] [place] [address] Result Comment: The [place] [employer] (ADA) provides guidance for cutoff [...] Standards of Medical Care in Diabetes 2016, [place] [employer]. Diabetes Care. 2016.39(Suppl 1). Performed By: #### 2 4323-8 ####[facility] LABCLIA [id number] [place] [address] Potassium [Moles/Vol] 5.1 mmol/L Normal 3.7-5.1 [facility] Comment on above: Order Comment: Speci men Type: BLOOD SPECIMENOrdering Facility: [facility] Address: [address] [place] [address] Performed By: #### 2 4323-8 ####[facility] LABCLIA [id number] [place] [address] Protein [Mass/Vol] 7.4 g/dL Normal 6.3-8.0 [facility] Comment on above: Order Comment: Speci men Type: BLOOD SPECIMENOrdering Facility: [facility] Address: [address] [place] [address] Performed By: #### 2 4323-8 ####[facility] LABIA [id number] [place] [address] Sodium [Moles/Vol] 142 mmol/L Normal 136-144 [facility] Comment on above: Order Comment: Speci men Type: BLOOD SPECIMENOrdering Facility: [facility] Address: [address] [place] [address] Performed By: #### 2 4323-8 ####[facility] LABCLIA [id number] [place] [address] Urea nitrogen [Mass/Vol] 40 mg/dL High 7-21 [facility] Comment on above: Order Comment: Speci men Type: BLOOD SPECIMENOrdering Facility: [facility] Address: [address] [place] [address] Performed By: #### 2 4323-8 ####[facility] LABIA [id number] [place] [address] Ferritin SerPl-mCncon 2024 Ferritin [Mass/Vol] 142.0 ng/mL Normal 14.7-205.1 [facility] Comment on above: Order Comment: Speci men Type: BLOOD SPECIMENOrdering Facility: [facility] Address: [address] [place], [place] [address] Performed By: #### 2 276-4, 92063-0, 2132-03, 2284-02 ####[facility] LABCLIA [id number] [address] [address] [place] Folate SerPl-ncon 11-23-19 Folate [Mass/Vol] 4.9 ng/mL Normal >4.7 [facility] Comment on above: Order Comment: Speci men Type: BLOOD SPECIMENOrdering Facility: [facility] Address: [address] [place] [address] Performed By: #### 2 276-4, 78861-3, 2132-03, 2284-02 ####[facility] LABCLIA [id number] [place] [id number] [place] Iron and Iron binding capaci panel 11-22-2024 Iron [Mass/Vol] 44 ug/dL Normal 41-186 [facility] Comment on above: Order Comment: Speci men Type: BLOOD SPECIMENOrdering Facility: [facility] Address: [address] [place] [address] Performed By: #### 2 276-4, 72643-8, 2132-03, 2284-02 ####[facility] LABCLIA [id number] [place] [id number] [place] Iron binding capacity [Mass/Vol] 362 ug/dL Normal 232-386 [facility] Comment on above: Order Comment: Speci men Type: BLOOD SPECIMENOrdering Facility: [facility] Address: [address] [place] [address] Performed By: #### 2 276-4, 47211-0, 2132-03, 2284-02 ####[facility] LABCLIA [id number] [address] [address] [place] Iron/TIBC [Molar ratio] 12.2 % Low 15.0-57.[address] [facility] Comment on above: Order Comment: Speci men Type: BLOOD SPECIMENOrdering Facility: [facility] Address: [address] [place] [address] Performed By: #### 2 276-4, 47327-4, 2132-03, 2284-02 ####[facility] LABCLIA [id number] [place] [id number] [place] Vit B12 [facility]2 025 Cobalamin (Vitamin B12) [Mass/Vol] 591 pg/mL Normal 232-1245 [facility] Comment on above: Order Comment: Speci men Type: BLOOD SPECIMENOrdering Facility: [facility] Address: [address] [place] [address] Performed By: #### 2 276-4, 42094-5, 2132-03, 2284-02 ####[facility] LABCLIA [id number] [place] [address] [place] CBC W Auto Differential pane l (Bld)on 10-11-2024 Basophils (Bld) [#/Vol] 10*3/uL Normal <0.[address] [facility] Comment on above: Order Comment: Speci men Type: BLOOD SPECIMENOrdering Facility: [facility] Address: [address] [place] [address] Performed By: #### 5 7021-8 ####[facility] LABCLIA [id number] [place] [address] Basophils/100 WBC (Bld) 0.4 % Normal [facility] Comment on above: Order Comment: Speci men Type: BLOOD SPECIMENOrdering Facility: [facility] Address: [address] [place] [address] Performed By: #### 5 7021-8 ####[facility] LABCLIA [id number] [place] [address] Differential cell count method Nom (Bld) Auto Normal [facility] Comment on above: Order Comment: Speci men Type: BLOOD SPECIMENOrdering Facility: [facility] Address: [address] [place] [address] Performed By: #### 5 7021-8 ####[facility] LABCLIA [id number] [place] [address] Eosinophils (Bld) [#/Vol] 0.04 10*3/uL Normal <0.46 [facility] Comment on above: Order Comment: Speci men Type: BLOOD SPECIMENOrdering Facility: [facility] Address: [address] [place] [address] Performed By: #### 5 7021-8 ####[facility] LABCLIA [id number] [place] [address] Eosinophils/100 WBC (Bld) 0.7 % Normal [facility] Comment on above: Order Comment: Speci men Type: BLOOD SPECIMENOrdering Facility: [facility] Address: [address] [place] [address] Performed By: #### 5 7021-8 ####[facility] LABCLIA [id number] [place] [address] Erythrocyte distribution width (RBC) [Ratio] 14.3 % Normal 11.5-15.0 [facility] Comment on above: Order Comment: Speci men Type: BLOOD SPECIMENOrdering Facility: [facility] Address: [address] [place] [address] Performed By: #### 5 7021-8 ####[facility] LABCLIA [id number] [place] [address] Hematocrit (Bld) [Volume fraction] 35.0 % Low 36.0-46.0 [facility] Comment on above: Order Comment: Speci men Type: BLOOD SPECIMENOrdering Facility: [facility] Address: [address] [place] [address] Performed By: #### 5 7021-8 ####[facility] LABCLIA [id number] [place] [address] Hemoglobin (Bld) [Mass/Vol] 11.1 g/dL Low 11.5-15.5 [facility] Comment on above: Order Comment: Speci men Type: BLOOD SPECIMENOrdering Facility: [facility] Address: [address] [place] [address] Performed By: #### 5 7021-8 ####[facility] LABCLIA [id number] [place] [address] Immature granulocytes (Bld) [#/Vol] 10*3/uL Normal <0.10 [facility] Comment on above: Order Comment: Speci men Type: BLOOD SPECIMENOrdering Facility: [facility] Address: [address] [place] [address] Performed By: #### 5 7021-8 ####[facility] LABCLIA [id number] [place] [address] Immature granulocytes/100 WBC (Bld) 0.2 % Normal [facility] Comment on above: Order Comment: Speci men Type: BLOOD SPECIMENOrdering Facility: [facility] Address: [address] [place] [address] Performed By: #### 5 7021-8 ####[facility] LABCLIA [id number] [place] [address] Lymphocytes (Bld) [#/Vol] 1.92 10*3/uL Normal 1.00-4.00 [facility] Comment on above: Order Comment: Speci men Type: BLOOD SPECIMENOrdering Facility: [facility] Address: [address] [place] [address] Performed By: #### 5 7021-8 ####[facility] LABCLIA [id number] [place] [address] Lymphocytes/100 WBC (Bld) 36.0 % Normal [facility] Comment on above: Order Comment: Speci men Type: BLOOD SPECIMENOrdering Facility: [facility] Address: [address] [place] [address] Performed By: #### 5 7021-8 ####[facility] LABCLIA [id number] [place] [address] MCH (RBC) [Entitic mass] 31.6 pg Normal 26.0-34.0 [facility] Comment on above: Order Comment: Speci men Type: BLOOD SPECIMENOrdering Facility: [facility] Address: [address] [place] [address] Performed By: #### 5 7021-8 ####[facility] LABCLIA [id number] [place] [address] MCHC (RBC) [Mass/Vol] 31.7 g/dL Normal 30.5-36.0 [facility] Comment on above: Order Comment: Speci men Type: BLOOD SPECIMENOrdering Facility: [facility] Address: [address] [place] [address] Performed By: #### 5 7021-8 ####[facility] LABCLIA [id number] [place] [address] MCV (RBC) [Entitic vol] 99.7 fL Normal 80.0-100.0 [facility] Comment on above: Order Comment: Speci men Type: BLOOD SPECIMENOrdering Facility: [facility] Address: [address] [place] [address] Performed By: #### 5 7021-8 ####[facility] LABCLIA [id number] [place] [address] Monocytes (Bld) [#/Vol] 0.20 10*3/uL Normal <0.87 [facility] Comment on above: Order Comment: Speci men Type: BLOOD SPECIMENOrdering Facility: [facility] Address: [address] [place] [address] Performed By: #### 5 7021-8 ####[facility] LABIA [id number] [place] [address] Monocytes/100 WBC (Bld) 3.7 % Normal [facility] Comment on above: Order Comment: Speci men Type: BLOOD SPECIMENOrdering Facility: [facility] Address: [address] [place] [address] Performed By: #### 5 7021-8 ####[facility] LABCLIA [id number] [place] [address] Neutrophils (Bld) [#/Vol] 3.15 10*3/uL Normal 1.45-7.50 [facility] Comment on above: Order Comment: Speci men Type: BLOOD SPECIMENOrdering Facility: [facility] Address: [address] [place] [address] Performed By: #### 5 7021-8 ####[facility] LABCLIA [id number] [place] [address] Neutrophils/100 WBC (Bld) 59.0 % Normal [facility] Comment on above: Order Comment: Speci men Type: BLOOD SPECIMENOrdering Facility: [facility] Address: [address] [place] [address] Performed By: #### 5 7021-8 ####[facility] LABCLIA [id number] [place] [address] Nucleated RBC (Bld) [#/Vol] 10*3/uL Normal <0.01 [facility] Comment on above: Order Comment: Speci men Type: BLOOD SPECIMENOrdering Facility: [facility] Address: [address] [place] [address] Performed By: #### 5 7021-8 ####[facility] LABCLIA [id number] [place] [address] Nucleated RBC/100 WBC (Bld) [Ratio] 0.0 /100 WBC Normal [facility] Comment on above: Order Comment: Speci men Type: BLOOD SPECIMENOrdering Facility: [facility] Address: [address] [place] [address] Performed By: #### 5 7021-8 ####[facility] LABCLIA [id number] [place] [address] Platelet mean volume (Bld) [Entitic vol] 9.0 fL Normal 9.0-12.7 [facility] Comment on above: Order Comment: Speci men Type: BLOOD SPECIMENOrdering Facility: [facility] Address: [address] [place] [address] Performed By: #### 5 7021-8 ####[facility] LABIA [id number] [place] [address] Platelets (Bld) [#/Vol] 202 10*3/uL Normal 150-400 [facility] Comment on above: Order Comment: Speci men Type: BLOOD SPECIMENOrdering Facility: [facility] Address: [address] [place] [address] Performed By: #### 5 7021-8 ####[facility] LABIA [id number] [place] [address] RBC (Bld) [#/Vol] 3.51 10*6/uL Low 3.90-5.20 [facility] Comment on above: Order Comment: Speci men Type: BLOOD SPECIMENOrdering Facility: [facility] Address: [address] [place] [address] Performed By: #### 5 7021-8 ####[facility] LABIA [id number] [place] [address] WBC (Bld) [#/Vol] 5.34 10*3/uL Normal 3.70-11.00 [facility] Comment on above: Order Comment: Speci men Type: BLOOD SPECIMENOrdering Facility: [facility] Address: [address] [place] [address] Performed By: #### 5 7021-8 ####[facility] LABIA [id number] [place] [address] CNNURSEon 10-11-2024 CNNURSE Normal [facility] CNOVSPon 10-11-2024 CNOVSP Normal [facility] metabolic 2000 panelon 10-11-2024 Albumin [Mass/Vol] 3.9 g/dL Normal 3.9-4.9 [facility] Comment on above: Order Comment: Speci men Type: BLOOD SPECIMENOrdering Facility: [facility] Address: [address] [id number] Performed By: #### 2 4323-8 ####[facility] LABCLIA [id number] [place] [address] ALP [Catalytic activity/Vol] 86 U/L Normal 34-123 [facility] Comment on above: Order Comment: Speci men Type: BLOOD SPECIMENOrdering Facility: [facility] Address: [address] [place] [address] Performed By: #### 2 4323-8 ####[facility] LABCLIA [id number] [place] [address] ALT [Catalytic activity/Vol] 14 U/L Normal 7-38 [facility] Comment on above: Order Comment: Speci men Type: BLOOD SPECIMENOrdering Facility: [facility] Address: [address] [place] [address] Performed By: #### 2 4323-8 ####[facility] LABCLIA [id number] [place] [address] Anion gap [Moles/Vol] 9 mmol/L Normal 8-15 [facility] Comment on above: Order Comment: Speci men Type: BLOOD SPECIMENOrdering Facility: [facility] Address: [address] [place] [address] Performed By: #### 2 4323-8 ####[facility] LABCLIA [id number] [place] [address] AST [Catalytic activity/Vol] 24 U/L Normal 13-35 [facility] Comment on above: Order Comment: Speci men Type: BLOOD SPECIMENOrdering Facility: [facility] Address: [address] [place] [address] Performed By: #### 2 4323-8 ####[facility] LABCLIA [id number] [place] [address] Bilirubin [Mass/Vol] 0.5 mg/dL Normal 0.2-1.3 [facility] Comment on above: Order Comment: Speci men Type: BLOOD SPECIMENOrdering Facility: [facility] Address: [address] [place] [address] Performed By: #### 2 4323-8 ####[facility] LABCLIA [id number] [place] [address] Calcium [Mass/Vol] 9.7 mg/dL Normal 8.5-10.2 [facility] Comment on above: Order Comment: Speci men Type: BLOOD SPECIMENOrdering Facility: [facility] Address: [address] [place] [address] Performed By: #### 2 4323-8 ####[facility] LABCLIA [id number] [place] [address] Chloride [Moles/Vol] 106 mmol/L Normal 98-107 [facility] Comment on above: Order Comment: Speci men Type: BLOOD SPECIMENOrdering Facility: [facility] Address: [address] [place] [address] Performed By: #### 2 4323-8 ####[facility] LABCLIA [id number] [place] [address] CO2 [Moles/Vol] 23 mmol/L Normal 22-30 [facility] Comment on above: Order Comment: Speci men Type: BLOOD SPECIMENOrdering Facility: [facility] Address: [address] [place] [address] Performed By: #### 2 4323-8 ####[facility] LABCLIA [id number] [place] [address] Creatinine [Mass/Vol] 1.27 mg/dL High 0.58-0.96 [facility] Comment on above: Order Comment: Speci men Type: BLOOD SPECIMENOrdering Facility: [facility] Address: [address] [place], [place] [address] Performed By: #### 2 4323-8 ####[facility] LABCLIA [id number] [place] [address] Creatinine and Glomerular filtration rate.predicted panel (S/P/Bld) 45 mL/min/1.73m??? Low >=60 [facility] Comment on above: Order Comment: Fabricio men Type: BLOOD SPECIMENOrdering Facility: [facility] Address: [address] [place] [address] Result Comment: Miryam mated Glomerular Filtration Rate [...] actual GFR. Performed By: #### 2 4323-8 ####[facility] LABCLIA [id number] [place] [address] Glucose [Mass/Vol] 107 mg/dL High 74-99 [facility] Comment on above: Order Comment: Fabricio tapai Type: BLOOD SPECIMENOrdering Facility: [facility] Address: [address] [place], [place] [address] Result Comment: The [place] [employer] (ADA) provides guidance for cutoff [...] Standards of Medical Care in Diabetes 2016, [place] [employer]. Diabetes Care. 2016.39(Suppl 1). Performed By: #### 2 4323-8 ####[facility] LABCLIA [id number] [place] [address] Potassium [Moles/Vol] 5.0 mmol/L Normal 3.7-5.1 [facility] Comment on above: Order Comment: Speci men Type: BLOOD SPECIMENOrdering Facility: [facility] Address: [address] [place] [address] Performed By: #### 2 4323-8 ####[facility] LABCLIA [id number] [place] [address] Protein [Mass/Vol] 7.7 g/dL Normal 6.3-8.0 [facility] Comment on above: Order Comment: Speci men Type: BLOOD SPECIMENOrdering Facility: [facility] Address: [address] [place] [address] Performed By: #### 2 4323-8 ####[facility] LABCLIA [id number] [place] [address] Sodium [Moles/Vol] 138 mmol/L Normal 136-144 [facility] Comment on above: Order Comment: Speci men Type: BLOOD SPECIMENOrdering Facility: [facility] Address: [address] [place] [address] Performed By: #### 2 4323-8 ####[facility] LABCLIA [id number] [place] [address] Urea nitrogen [Mass/Vol] 31 mg/dL High 7-21 [facility] Comment on above: Order Comment: Speci men Type: BLOOD SPECIMENOrdering Facility: [facility] Address: [address] [place] [address] Performed By: #### 2 4323-8 ####[facility] LABCLIA [id number] [place] [address] Ferritin SerPl-mCncon 2024 Ferritin [Mass/Vol] 122.0 ng/mL Normal 14.7-205.1 [facility] Comment on above: Order Comment: Speci men Type: BLOOD SPECIMENOrdering Facility: [facility] Address: [address] [place] [address] Performed By: #### 5 0190-8, 2132-03, 2275-10, 2284-02 ####[facility] LABCLIA [id number] [address] [address] [place] Folate SerPl-ncon 10-12-19 25 Folate [Mass/Vol] 6.6 ng/mL Normal >4.7 [facility] Comment on above: Order Comment: Speci men Type: BLOOD SPECIMENOrdering Facility: [facility] Address: [address] [place] [address] Performed By: #### 5 0190-8, 2132-03, 2275-10, 2284-02 ####[facility] LABCLIA [id number] [place] [address] [place] Iron and Iron binding capaci ty panelon 10-11-2024 Iron [Mass/Vol] 70 ug/dL Normal 41-186 [facility] Comment on above: Order Comment: Speci men Type: BLOOD SPECIMENOrdering Facility: [facility] Address: [address] [place] [address] Performed By: #### 5 0190-8, 2132-03, 2275-10, 2284-02 ####[facility] LABCLIA [id number] [place] [address] [place] Iron binding capacity [Mass/Vol] 351 ug/dL Normal 232-386 [facility] Comment on above: Order Comment: Speci men Type: BLOOD SPECIMENOrdering Facility: [facility] Address: [address] [place] [address] Performed By: #### 5 0190-8, 2132-03, 2275-10, 2284-02 ####[facility] LABCLIA [id number] [place] [address] [place] Iron/TIBC [Molar ratio] 19.9 % Normal 15.0-57.0 [facility] Comment on above: Order Comment: Speci men Type: BLOOD SPECIMENOrdering Facility: [facility] Address: [address] [place] [address] Performed By: #### 5 0190-8, 2131-9, 6-4, 2284-8 ####[facility] LABCLIA [id number] [address] [place] Vit B12 SerPl-mCncon 025 Cobalamin (Vitamin B12) [Mass/Vol] 647 pg/mL Normal 232-1245 [facility] Comment on above: Order Comment: Speci men Type: BLOOD SPECIMENOrdering Facility: [facility] Address: [address] [place] [address] Performed By: #### 5 0190-8, 9, 4, 2283-8 ####[facility] LABCLIA [id number] [place] [address] [place] [address] Ultrasound Report Signed Patient: ANDREI FISH MR#: [id number] : 1950 Acct:[id number] Age/Sex: 73 / F ADM Date: 09/17/24 Loc: US Attending Dr: Mar Mayo M.D. Ordering Physician: Mar Mayo M.D. Date of Service: 09/17/24 Procedure(s): US thyroid Accession Number(s): [id number] cc: Stephanie Dumont [employer]; Mar Mayo M.D. [address] [address] Patient Name: ANDREI FISH MRN: [id number] date: 1950 Sex: F Assigned Patient Location: [place] Current Patient Location: [place] Accession/Order Number: [id number] Exam Date: 09/17/2024 18:55 Report Date: 09/17/2024 [...] Valentin Peralta M.D.09/17/2024 7:07 PM Dictation Location: [place] [address] Electronically authenticated by: [id number] Y Date: 09/17/2024 19:07 Dictated By: Valentin Peralta D.O. Signed By: 09/17/241909 DD/ 06 TD/TT: [employer] Assistant Manager: [facility] Radiology, Radiologist, - 09/17/2024 [place] [address] Ultrasound Report Signed Patient: ANDREI FISH MR#: [id number] : 1950 Acct:[id number] Age/Sex: 73 / F ADM Date: 09/17/24 Loc: US Attending Dr: Mar Mayo M.D. Ordering Physician: Mar Mayo M.D. Date of Service: 09/17/24 Procedure(s): US thyroid Accession Number(s): [id number] cc: Stephanie Dumont [employer]; Mar Mayo M.D. [address] [place] [address] Patient Name: ANDREI FISH MRN: [id number] date: 1950 Sex: F Assigned Patient Location: US Current Patient Location: US Accession/Order Number: [id number] Exam Date: 09/17/2024 18:55 Report Date: 09/17/2024 [...] Valentin Peralta M.D.09/17/2024 7:07 PM Dictation Location: [place] [address] Electronically authenticated by: [id number] Y Date: 09/17/2024 19:07 Dictated By: Valentin Peralta D.O. Signed By: 09/17/241909 DD/ 06 TD/TT: [employer] Assistant Manager: [facility] Radiology Study observation (narrative) [facility] US Thyroid glandOrdered By: Radiologist Radiology on 09-17-2024 [facility] Work Phone: CBC W Auto Differential pane l (Bld)on 08-30-2024 Basophils (Bld) [#/Vol] 10*3/uL Normal <0.[address] [facility] Comment on above: Order Comment: Speci men Type: BLOOD SPECIMENOrdering Facility: [facility] Address: [address] [place] [address] Performed By: #### 5 7021-8 ####[facility] LABCLIA [id number] [place] [address] Basophils/100 WBC (Bld) 0.4 % Normal [facility] Comment on above: Order Comment: Speci men Type: BLOOD SPECIMENOrdering Facility: [facility] Address: [address] [place] [address] Performed By: #### 5 7021-8 ####[facility] LABCLIA [id number] [place] [address] Differential cell count method Nom (Bld) Auto Normal [facility] Comment on above: Order Comment: Speci men Type: BLOOD SPECIMENOrdering Facility: [facility] Address: [address] [place] [address] Performed By: #### 5 7021-8 ####[facility] LABCLIA [id number] [place] [address] Eosinophils (Bld) [#/Vol] 0.04 10*3/uL Normal <0.46 [facility] Comment on above: Order Comment: Speci men Type: BLOOD SPECIMENOrdering Facility: [facility] Address: [address] [place] [address] Performed By: #### 5 7021-8 ####[facility] LABCLIA [id number] [place] [address] Eosinophils/100 WBC (Bld) 0.7 % Normal [facility] Comment on above: Order Comment: Speci men Type: BLOOD SPECIMENOrdering Facility: [facility] Address: [address] [place] [address] Performed By: #### 5 7021-8 ####[facility] LABCLIA [id number] [place] [address] Erythrocyte distribution width (RBC) [Ratio] 13.8 % Normal 11.5-15.0 [facility] Comment on above: Order Comment: Speci men Type: BLOOD SPECIMENOrdering Facility: [facility] Address: [address] [place] [address] Performed By: #### 5 7021-8 ####[facility] LABCLIA [id number] [place] [address] Hematocrit (Bld) [Volume fraction] 33.2 % Low 36.0-46.0 [facility] Comment on above: Order Comment: Speci men Type: BLOOD SPECIMENOrdering Facility: [facility] Address: [address] [place] [address] Performed By: #### 5 7021-8 ####[facility] LABCLIA [id number] [place] [address] Hemoglobin (Bld) [Mass/Vol] 10.4 g/dL Low 11.5-15.5 [facility] Comment on above: Order Comment: Speci men Type: BLOOD SPECIMENOrdering Facility: [facility] Address: [address] [place] [address] Performed By: #### 5 7021-8 ####[facility] LABCLIA [id number] [place] [address] Immature granulocytes (Bld) [#/Vol] 10*3/uL Normal <0.10 [facility] Comment on above: Order Comment: Speci men Type: BLOOD SPECIMENOrdering Facility: [facility] Address: [address] [place] [address] Performed By: #### 5 7021-8 ####[facility] LABCLIA [id number] [place] [address] Immature granulocytes/100 WBC (Bld) 0.4 % Normal [facility] Comment on above: Order Comment: Speci men Type: BLOOD SPECIMENOrdering Facility: [facility] Address: [address] [place] [address] Performed By: #### 5 7021-8 ####[facility] LABCLIA [id number] [place] [address] Lymphocytes (Bld) [#/Vol] 2.05 10*3/uL Normal 1.00-4.00 [facility] Comment on above: Order Comment: Speci men Type: BLOOD SPECIMENOrdering Facility: [facility] Address: [address] [place] [address] Performed By: #### 5 7021-8 ####[facility] LABCLIA [id number] [place] [address] Lymphocytes/100 WBC (Bld) 36.7 % Normal [facility] Comment on above: Order Comment: Speci men Type: BLOOD SPECIMENOrdering Facility: [facility] Address: [address] [place] [address] Performed By: #### 5 7021-8 ####[facility] LABCLIA [id number] [place] [address] MCH (RBC) [Entitic mass] 31.6 pg Normal 26.0-34.0 [facility] Comment on above: Order Comment: Speci men Type: BLOOD SPECIMENOrdering Facility: [facility] Address: [address] [place] [address] Performed By: #### 5 7021-8 ####[facility] LABCLIA [id number] [place] [address] MCHC (RBC) [Mass/Vol] 31.3 g/dL Normal 30.5-36.0 [facility] Comment on above: Order Comment: Speci men Type: BLOOD SPECIMENOrdering Facility: [facility] Address: [address] [place] [address] Performed By: #### 5 7021-8 ####[facility] LABCLIA [id number] [place] [address] MCV (RBC) [Entitic vol] 100.9 fL High 80.0-100.[address] [facility] Comment on above: Order Comment: Speci men Type: BLOOD SPECIMENOrdering Facility: [facility] Address: [address] [place] [address] Performed By: #### 5 7021-8 ####[facility] LABCLIA [id number] [place] [address] Monocytes (Bld) [#/Vol] 0.26 10*3/uL Normal <0.87 [facility] Comment on above: Order Comment: Speci men Type: BLOOD SPECIMENOrdering Facility: [facility] Address: [address] [place] [address] Performed By: #### 5 7021-8 ####[facility] LABCLIA [id number] [place] [address] Monocytes/100 WBC (Bld) 4.7 % Normal [facility] Comment on above: Order Comment: Speci men Type: BLOOD SPECIMENOrdering Facility: [facility] Address: [address] [place] [address] Performed By: #### 5 7021-8 ####[facility] LABCLIA [id number] [place] [address] Neutrophils (Bld) [#/Vol] 3.20 10*3/uL Normal 1.45-7.50 [facility] Comment on above: Order Comment: Speci men Type: BLOOD SPECIMENOrdering Facility: [facility] Address: [address] [place] [address] Performed By: #### 5 7021-8 ####[facility] LABCLIA [id number] [place] [address] Neutrophils/100 WBC (Bld) 57.1 % Normal [facility] Comment on above: Order Comment: Speci men Type: BLOOD SPECIMENOrdering Facility: [facility] Address: [address] [place] [address] Performed By: #### 5 7021-8 ####[facility] LABCLIA [id number] [place] [address] Nucleated RBC (Bld) [#/Vol] 10*3/uL Normal <0.01 [facility] Comment on above: Order Comment: Speci men Type: BLOOD SPECIMENOrdering Facility: [facility] Address: [address] [place] [address] Performed By: #### 5 7021-8 ####[facility] LABCLIA [id number] [place] [address] Nucleated RBC/100 WBC (Bld) [Ratio] 0.0 /100 WBC Normal [facility] Comment on above: Order Comment: Speci men Type: BLOOD SPECIMENOrdering Facility: [facility] Address: [address] [place] [address] Performed By: #### 5 7021-8 ####[facility] LABCLIA [id number] [place] [address] Platelet mean volume (Bld) [Entitic vol] 9.3 fL Normal 9.0-12.7 [facility] Comment on above: Order Comment: Speci men Type: BLOOD SPECIMENOrdering Facility: [facility] Address: [address] [place] [address] Performed By: #### 5 7021-8 ####[facility] LABCLIA [id number] [place] [address] Platelets (Bld) [#/Vol] 173 10*3/uL Normal 150-400 [facility] Comment on above: Order Comment: Speci men Type: BLOOD SPECIMENOrdering Facility: [facility] Address: [address] [place] [address] Performed By: #### 5 7021-8 ####[facility] LABCLIA [id number] [place] [address] RBC (Bld) [#/Vol] 3.29 10*6/uL Low 3.90-5.20 [facility] Comment on above: Order Comment: Speci men Type: BLOOD SPECIMENOrdering Facility: [facility] Address: [address] [place] [address] Performed By: #### 5 7021-8 ####[facility] LABCLIA [id number] [place] [address] WBC (Bld) [#/Vol] 5.59 10*3/uL Normal 3.70-11.00 [facility] Comment on above: Order Comment: Speci men Type: BLOOD SPECIMENOrdering Facility: [facility] Address: [address] [place] [address] Performed By: #### 5 7021-8 ####[facility] LABCLIA [id number] [place] [address] CNNURSEon 08-30-2024 CNNURSE Normal [facility] CNOVSPon 08-30-2024 CNOVSP Normal [facility] Comprehensive metabolic 2000 panelon 08-30-2024 Albumin [Mass/Vol] 3.8 g/dL Low 3.9-4.9 [facility] [facility] Comment on above: Order Comment: Speci men Type: BLOOD SPECIMENOrdering Facility: [facility] Address: [address] [place] [address] Result Comment: Flip ected result: Previously reported as 3.7 g/dL on 08/30/2024 at 10:57 AM EST. Performed By: #### 2 4323-8 ####[facility] LABCLIA [id number] [place] [address] [place] ALP [Catalytic activity/Vol] 84 U/L Normal 34-123 [facility] Comment on above: Order Comment: Speci men Type: BLOOD SPECIMENOrdering Facility: [facility] Address: [address] [place] [address] Result Comment: Flip ected result: Previously reported as 80 U/L on 08/30/2024 at 10:57 AM EST. Performed By: #### 2 4323-8 ####[facility] LABCLIA [id number] [place] [address] [place] ALT [Catalytic activity/Vol] 15 U/L Normal 7-38 [facility] Comment on above: Order Comment: Speci men Type: BLOOD SPECIMENOrdering Facility: [facility] Address: [address] [place] [address] Result Comment: Flip ected result: Previously reported as 11 U/L on 08/30/2024 at 10:57 AM EST. Performed By: #### 2 4323-8 ####[facility] LABCLIA [id number] [place] [address] [place] Anion gap [Moles/Vol] 9 mmol/L Normal 8-15 [facility] Comment on above: Order Comment: Speci men Type: BLOOD SPECIMENOrdering Facility: [facility] Address: [address] [place] [address] Performed By: #### 2 4323-8 ####[facility] LABIA [id number] [place] [address] [place] AST [Catalytic activity/Vol] 24 U/L Normal 13-35 [facility] Comment on above: Order Comment: Speci men Type: BLOOD SPECIMENOrdering Facility: [facility] Address: [address] [place] [address] Result Comment: Flip ected result: Previously reported as 18 U/L on 08/30/2024 at 10:57 AM EST. Performed By: #### 2 4323-8 ####[facility] LABCLIA [id number] [place] [address] [place] Bilirubin [Mass/Vol] 0.5 mg/dL Normal 0.2-1.3 [facility] Comment on above: Order Comment: Speci men Type: BLOOD SPECIMENOrdering Facility: [facility] Address: [address] [place] [address] Result Comment: Flip ected result: Previously reported as 0.4 mg/dL on 08/30/2024 at 10:57 AM EST. Performed By: #### 2 4323-8 ####[facility] LABCLIA [id number] [place] [address] [place] Calcium [Mass/Vol] 9.4 mg/dL Normal 8.5-10.2 [facility] Comment on above: Order Comment: Speci men Type: BLOOD SPECIMENOrdering Facility: [facility] Address: [address] [place] [address] Result Comment: Flip ected result: Previously reported as 9.1 mg/dL on 08/30/2024 at 10:57 AM EST. Performed By: #### 2 4323-8 ####[facility] LABCLIA [id number] [place] [address] [place] Chloride [Moles/Vol] 105 mmol/L Normal 98-107 [facility] Comment on above: Order Comment: Speci men Type: BLOOD SPECIMENOrdering Facility: [facility] Address: [address] [place] [address] Performed By: #### 2 4323-8 ####[facility] LABCLIA [id number] [place] [address] [place] CO2 [Moles/Vol] 25 mmol/L Normal 22-30 [facility] Comment on above: Order Comment: Speci men Type: BLOOD SPECIMENOrdering Facility: [facility] Address: [address] [place] [address] Result Comment: Flip ected result: Previously reported as 27 mmol/L on 08/30/2024 at 10:57 AM EST. Performed By: #### 2 4323-8 ####[facility] LABIA [id number] [place] [address] [place] Creatinine [Mass/Vol] 1.38 mg/dL High 0.58-0.96 [facility] Comment on above: Order Comment: Speci men Type: BLOOD SPECIMENOrdering Facility: [facility] Address: [address] [place] [address] Result Comment: Flip ected result: Previously reported as 1.31 mg/dL on 08/30/2024 at 10:57 AM EST. Performed By: #### 2 4323-8 ####[facility] LABCLIA [id number] [place] [address] [place] Creatinine and Glomerular filtration rate.predicted panel (S/P/Bld) 40 mL/min/1.73m??? Low >=60 [facility] Comment on above: Order Comment: Fabricio tapia Type: BLOOD SPECIMENOrdering Facility: [facility] Address: [address] [place] [address] Result Comment: Miryam mated Glomerular Filtration Rate [...] AM EST. Performed By: #### 2 4323-8 ####[facility] LABCLIA [id number] [place] [address] [place] Glucose [Mass/Vol] 102 mg/dL High 74-99 [facility] Comment on above: Order Comment: Fabricio tapia Type: BLOOD SPECIMENOrdering Facility: [facility] Address: [address] [place] [address] Result Comment: The [place] [employer] Association (ADA) provides guidance for cutoff [...] Standards of Medical Care in Diabetes 2016, [place] [employer]. Diabetes Care. 2016.39(Suppl 1). Performed By: #### 2 4323-8 ####[facility] LABCLIA [id number] [place] [address] [place] Potassium [Moles/Vol] 4.9 mmol/L Normal 3.7-5.1 [facility] Comment on above: Order Comment: Speci men Type: BLOOD SPECIMENOrdering Facility: [facility] Address: [address] [place] [address] Performed By: #### 2 4323-8 ####[facility] LABCLIA [id number] [place] [address] [place] Protein [Mass/Vol] 7.5 g/dL Normal 6.3-8.0 [facility] Comment on above: Order Comment: Speci men Type: BLOOD SPECIMENOrdering Facility: [facility] Address: [address] [place] [address] Result Comment: Flip ected result: Previously reported as 7.3 g/dL on 08/30/2024 at 10:57 AM EST. Performed By: #### 2 4323-8 ####[facility] LABIA [id number] [place] [address] [place] Sodium [Moles/Vol] 139 mmol/L Normal 136-144 [facility] Comment on above: Order Comment: Speci men Type: BLOOD SPECIMENOrdering Facility: [facility] Address: [address] [place] [address] Performed By: #### 2 4323-8 ####[facility] LABCLIA [id number] [place] [address] [place] Urea nitrogen [Mass/Vol] 29 mg/dL High 7-21 [facility] Comment on above: Order Comment: Speci men Type: BLOOD SPECIMENOrdering Facility: [facility] Address: [address] [place] [address] Result Comment: Flip ected result: Previously reported as 30 mg/dL on 08/30/2024 at 10:57 AM EST. Performed By: #### 2 4323-8 ####[facility] LABCLIA [id number] [place] [id number] [place] Ferritin SerPl-ncon 2024 Ferritin [Mass/Vol] 115.0 ng/mL Normal 14.7-205.1 [facility] Comment on above: Order Comment: Speci men Type: BLOOD SPECIMENOrdering Facility: [facility] Address: [address] [place] [address] Performed By: #### 2 132-9, 2276-4, 2284-8, 97499-5 ####[facility] LABCLIA [id number] [place] [address] [place] Folate SerPl-mCncon 08-30-19 Folate [Mass/Vol] 6.1 ng/mL Normal >4.7 [facility] Comment on above: Order Comment: Speci men Type: BLOOD SPECIMENOrdering Facility: [facility] Address: [address] [place] [address] Performed By: #### 2 132-9, 2276-4, 2284-8, 68679-3 ####[facility] LABIA [id number] [place] [id number] [place] Iron and Iron binding capaci ty panelon 08-30-2024 Iron [Mass/Vol] 55 ug/dL Normal 41-186 [facility] Comment on above: Order Comment: Speci men Type: BLOOD SPECIMENOrdering Facility: [facility] Address: [address] [place] [address] Performed By: #### 2 132-9, 2276-4, 2284-8, 65954-4 ####[facility] LABIA [id number] [place] [address] [place] Iron binding capacity [Mass/Vol] 307 ug/dL Normal 232-386 [facility] Comment on above: Order Comment: Speci men Type: BLOOD SPECIMENOrdering Facility: [facility] Address: [address] [place] [address] Performed By: #### 2 132-9, 2276-4, 2284-8, 68482-2 ####[facility] LABCLIA [id number] [place] [id number] [place] Iron/TIBC [Molar ratio] 17.9 % Normal 15.0-57.[address] [facility] Comment on above: Order Comment: Speci men Type: BLOOD SPECIMENOrdering Facility: [facility] Address: [address] [place] [address] Performed By: #### 2 132-9, 2276-4, 2284-8, 37806-5 ####[facility] LABCLIA [id number] [place] [address] [place] Vit B12 [facility] Cobalamin (Vitamin B12) [Mass/Vol] 680 pg/mL Normal 232-1245 [facility] Comment on above: Order Comment: Speci men Type: BLOOD SPECIMENOrdering Facility: [facility] Address: [address] [place] [address] Performed By: #### 2 132-9, 2276-4, 2284-8, 71143-1 ####[facility] LABCLIA [id number] [address] [place] COMPLETE BLOOD COUNTon 08-12 Erythrocyte distribution width (RBC) [Ratio] 14.4 % Normal 11.5-15.0 [facility] Comment on above: Performed By: #### RED Delgado #### [facility] ([id number]) [address] [place] [address] Hematocrit (Bld) [Volume fraction] 31.6 % Low 35-47 [facility] Comment on above: Performed By: #### RED Delgado #### [facility] ([id number]) [address], [address] [place] [address] Hemoglobin (Bld) [Mass/Vol] 10.6 g/dL Low 11.7-15.5 [facility] Comment on above: Performed By: #### RED Delgado #### [facility] ([id number]) [address] [place] [address] MCH (RBC) [Entitic mass] 33.0 pg Normal 27-34 [facility] Comment on above: Performed By: #### RED Delgado #### [facility] ([id number]) [address] [place] [address] MCHC (RBC) [Mass/Vol] 33.5 g/dL Normal 32-36 [facility] Comment on above: Performed By: #### ERD Delgado #### [facility] ([id number]) [address] [place] [address] MCV (RBC) [Entitic vol] 99 fL Normal 80-[address] [facility] Comment on above: Performed By: #### RED Delgado #### [facility] ([id number]) [address] [place] [address] Platelet mean volume (Bld) [Entitic vol] 7.9 fL Normal 7-12 [facility] Comment on above: Performed By: #### RED Delgado #### [facility] ([id number]) [address] [place] [address] Platelets (Bld) [#/Vol] 152 10*3/uL Normal 150-450 [facility] Comment on above: Performed By: #### RED Delgado #### [facility] ([id number]) [address] [place] [address] RBC COUNT 3.21 X10E12/L Low 3.80-5.20 [facility] Comment on above: Performed By: #### RED Delgado #### [facility] ([id number]) [address] [place] [address] WBC (Bld) [#/Vol] 3.8 10*3/uL Low 4.0-11.0 [facility] Comment on above: Performed By: #### RED Delgado #### [facility] ([id number]) [address] [place] [address] MAGNESIUMon 08-12-2024 Magnesium [Mass/Vol] 2.4 mg/dL Normal 1.8-2.6 [facility] Comment on above: Performed By: #### RED Delgado #### [facility] ([id number]) [address] [place] [address] PROTEIN CREAT RATIOon 2024 RANDOM URINE PROTEIN 250 mg/L High <120 [facility] Comment on above: Performed By: #### RED Delgado #### [facility] ([id number]) [address] [place] [address] U/PRO/PHOTOGRAPHY EDITOR RATIO CALC 0.17 Normal <0.2 [facility] Comment on above: Result Comment: Neph rotic Syndrome is associated with ratios >3.5 Performed By: #### RED Delgado #### [facility] ([id number]) [address] [place] [address] URINE CREATININE,RDM 146.97 mg/dL Normal [facility] Comment on above: Performed By: #### RED Delgado #### [facility] ([id number]) [address] [place] [address] Parathyrin.intact [Mass/Vol] on 08-12-2024 PTH INTACT 61 pg/mL Normal 12-88 [facility] Comment on above: Performed By: #### RED Delgado #### [facility] ([id number]) [address], [address] [place] [address] RENAL PANELon 08-12-2024 Albumin [Mass/Vol] 3.7 g/dL Normal 3.2-5.3 [facility] Comment on above: Performed By: #### RED Delgado #### [facility] ([id number]) [address] [address] [place] [address] Anion gap [Moles/Vol] 6 mmol/L Normal 5-15 [facility] Comment on above: Performed By: #### RED Delgado #### [facility] ([id number]) [address] [address] [place] [address] Calcium [Mass/Vol] 9.3 mg/dL Normal 8.5-10.5 [facility] Comment on above: Performed By: #### RED Delgado #### [facility] ([id number]) [address] [address] [place] [address] Chloride [Moles/Vol] 111 mmol/L High 98-109 [facility] Comment on above: Performed By: #### RED Delgado #### [facility] ([id number]) [address] [address] [place] [address] CO2 [Moles/Vol] 21 mmol/L Low 22-32 [facility] Comment on above: Performed By: #### Lara Sheikh, RED #### [facility] ([id number]) [address] [address] [place] [address] Creatinine [Mass/Vol] 1.40 mg/dL High 0.40-1.00 [facility] Comment on above: Result Comment: METH OD TRACEABLE TO IDMS STANDARD Performed By: #### RED Delgado #### [facility] ([id number]) [address] [address] [place] [address] GFR/1.73 sq M.predicted among non-blacks MDRD (S/P/Bld) [Vol rate/Area] 40 mL/min/{1.73_m2} Low >59 [facility] Comment on above: Result Comment: Reported eGFR is based on the CKD-EPI 2020 equation that does not use a race coefficient. Performed By: #### Lara Sheikh, VIRGINIAPHYLLIS #### [facility] ([id number]) [address] [place] [address] Glucose [Mass/Vol] 100 mg/dL High 65-99 [facility] Comment on above: Performed By: #### Lara Sheikh, VIRGINIAPHYLLIS #### [facility] ([id number]) [address] [place] [address] Phosphate [Mass/Vol] 3.1 mg/dL Normal 2.4-4.9 [facility] Comment on above: Performed By: #### Lara Sheikh, VIRGINIAPHYLLIS #### [facility] ([id number]) [address] [place] [address] Potassium [Moles/Vol] 4.9 mmol/L Normal 3.5-5.0 [facility] Comment on above: Performed By: #### Lara Sheikh, VIRGINIAPHYLLIS #### [facility] ([id number]) [address] [place] [address] Sodium [Moles/Vol] 138 mmol/L Normal 134-146 [facility] Comment on above: Performed By: #### Lara Sheikh, MALBU #### [facility] ([id number]) [address] [place] [address] Urea nitrogen [Mass/Vol] 38 mg/dL High 5-27 [facility] Comment on above: Performed By: #### Lara Sheikh, MALBU #### [facility] ([id number]) [address] [place] [address] URIC ACIDon 08-12-2024 Urate [Mass/Vol] 7.3 mg/dL High 2.6-7.2 [facility] Comment on above: Performed By: #### RED Delgado #### [facility] ([id number]) [address] [place] [address] URINALYSISon 08-12-2024 Bilirubin Ql (U) Negative Normal NEG [facility] Comment on above: Performed By: #### Lara Sheikh, MALPHYLLIS #### [facility] ([id number]) [address] [place] [address] BLOOD/HGB Negative Normal NEG [facility] Comment on above: Performed By: #### RED Delgado #### [facility] ([id number]) [address] [place] [address] Color (U) YELLOW Normal YELLOW [facility] Comment on above: Performed By: #### Lara Sheikh, RED #### [facility] ([id number]) [address] [place] [address] Glucose Ql (U) Negative Normal NEG [facility] Comment on above: Performed By: #### Lara Sheikh, RED #### [facility] ([id number]) [address] [place] [address] Ketones Ql (U) Negative Normal NEG [facility] Comment on above: Performed By: #### Lara Sheikh, RED #### [facility] ([id number]) [address] [place] [address] Leukocyte esterase Test strip Ql (U) Small Abnormal NEG [facility] Comment on above: Performed By: #### RED Delgado #### [facility] ([id number]) [address] [place] [address] Nitrite Ql (U) Negative Normal NEG [facility] Comment on above: Performed By: #### Lara Sheikh, RED #### [facility] ([id number]) [address] [place] [address] pH (U) 6.0 [pH] Normal 5.0-8.5 [facility] Comment on above: Performed By: #### Lara Sheikh VIRGINIAPHYLLIS #### [facility] ([id number]) [address] [place] [address] Protein Ql (U) Trace Abnormal NEG [facility] Comment on above: Performed By: #### Lara Sheikh VIRGINIAPHYLLIS #### [facility] ([id number]) [address] [place] [address] R.B.CELLS 1 /hpf Normal 0-5 [facility] Comment on above: Performed By: #### RED Delgado #### [facility] ([id number]) [address] [place] [address] Specific gravity (U) [Rel density] 1.015 Normal 1.003-1.035 [facility] Comment on above: Performed By: #### RED Delgado #### [facility] ([id number]) [address] [place] [address] SQUAMOUS EPITHELIUM 15 /hpf High 0-5 [facility] Comment on above: Performed By: #### Lara Sheikh, VIRGINIAPHYLLIS #### [facility] ([id number]) [address] [place] [address] TRANSITIONAL EPITH 1 /hpf High 0 [facility] Comment on above: Performed By: #### RED Delgado #### [facility] ([id number]) [address] [place] [address] TURBIDITY HAZY Abnormal CLEAR [facility] Comment on above: Performed By: #### RED Delgado #### [facility] ([id number]) [address] [place] [address] Urobilinogen Qn (U) 0.2 {Hao'U}/dL Normal <1.1 [facility] Comment on above: Performed By: #### Lara Sheikh, RED #### [facility] ([id number]) [address] [facility] [address] [place] [address] W.B.CELLS 2 /hpf Normal 0-5 [facility] Comment on above: Performed By: #### Lara Sheikh, RED #### [facility] ([id number]) [address] [address] Vitamin D+Metabolites [Mass/ Vol]on 08-12-2024 VITAMIN D 25 HYD TOT 19.5 ng/mL Low 30-100 [facility] Comment on above: Result Comment: Vitamin D status 25 [place] Vitamin D Deficiency <20 ng/mL Insufficiency 20-29 ng/mL Sufficiency 30-100 ng/mL Toxicity >100 ng/mL NOTE: A pediatric reference range has not been established by the online activist of this kit. The [place] [employer] recommends a Vitamin D level of = or >20ng/mL in infants and children. Performed By: #### Lara Sheikh, RED #### [facility] ([id number]) [address] [address] CNPNon 07-23-2024 CNPN Normal [facility] MR LOWER LEG LT W WO [...] Samaniego MD on 07/19/2024 6:30 AM Normal [facility] MR KNEE LT W WO CONTon 07-18 [...] Burton MD on 07/18/2024 3:48 PM Normal [facility] 36 07-15-2024 36 [place] office chatman d and asked for both MRI orders to be sent over to the fax number [phone]. [employer] faxed both papers over. Normal [facility] CBC W Auto Differential pane l (Bld)on 07-11-2024 Basophils (Bld) [#/Vol] 10*3/uL Normal <0.[address] [facility] Comment on above: Order Comment: Speci men Type: BLOOD SPECIMENOrdering Facility: [facility] Address: [address] [place] [address] Performed By: #### 5 7021-8 ####[facility] LABCLIA [id number] [place] [address] Basophils/100 WBC (Bld) 0.5 % Normal [facility] Comment on above: Order Comment: Speci men Type: BLOOD SPECIMENOrdering Facility: [facility] Address: [address] [place] [address] Performed By: #### 5 7021-8 ####[facility] LABCLIA [id number] [place] [address] Differential cell count method Nom (Bld) Auto Normal [facility] Comment on above: Order Comment: Speci men Type: BLOOD SPECIMENOrdering Facility: [facility] Address: [address] [place] [address] Performed By: #### 5 7021-8 ####[facility] LABCLIA [id number] [place] [address] Eosinophils (Bld) [#/Vol] 10*3/uL Normal <0.46 [facility] Comment on above: Order Comment: Speci men Type: BLOOD SPECIMENOrdering Facility: [facility] Address: [address] [place] [address] Performed By: #### 5 7021-8 ####[facility] LABCLIA [id number] [place] [address] Eosinophils/100 WBC (Bld) 0.5 % Normal [facility] Comment on above: Order Comment: Speci men Type: BLOOD SPECIMENOrdering Facility: [facility] Address: [address] [place] [address] Performed By: #### 5 7021-8 ####[facility] LABCLIA [id number] [place] [address] Erythrocyte distribution width (RBC) [Ratio] 13.9 % Normal 11.5-15.0 [facility] Comment on above: Order Comment: Speci men Type: BLOOD SPECIMENOrdering Facility: [facility] Address: [address] [place] [address] Performed By: #### 5 7021-8 ####[facility] LABCLIA [id number] [place] [address] Hematocrit (Bld) [Volume fraction] 34.4 % Low 36.0-46.0 [facility] Comment on above: Order Comment: Speci men Type: BLOOD SPECIMENOrdering Facility: [facility] Address: [address] [place] [address] Performed By: #### 5 7021-8 ####[facility] LABCLIA [id number] [place] [address] Hemoglobin (Bld) [Mass/Vol] 10.9 g/dL Low 11.5-15.5 [facility] Comment on above: Order Comment: Speci men Type: BLOOD SPECIMENOrdering Facility: [facility] Address: [address] [place] [address] Performed By: #### 5 7021-8 ####[facility] LABCLIA [id number] [place] [address] Immature granulocytes (Bld) [#/Vol] 10*3/uL Normal <0.10 [facility] Comment on above: Order Comment: Speci men Type: BLOOD SPECIMENOrdering Facility: [facility] Address: [address] [place] [address] Performed By: #### 5 7021-8 ####[facility] LABCLIA [id number] [place] [address] Immature granulocytes/100 WBC (Bld) 0.2 % Normal [facility] Comment on above: Order Comment: Speci men Type: BLOOD SPECIMENOrdering Facility: [facility] Address: [address] [place] [address] Performed By: #### 5 7021-8 ####[facility] LABCLIA [id number] [place] [address] Lymphocytes (Bld) [#/Vol] 1.56 10*3/uL Normal 1.00-4.00 [facility] Comment on above: Order Comment: Speci men Type: BLOOD SPECIMENOrdering Facility: [facility] Address: [address] [place] [address] Performed By: #### 5 7021-8 ####[facility] LABCLIA [id number] [place] [address] Lymphocytes/100 WBC (Bld) 36.2 % Normal [facility] Comment on above: Order Comment: Speci men Type: BLOOD SPECIMENOrdering Facility: [facility] Address: [address] [place] [address] Performed By: #### 5 7021-8 ####[facility] LABCLIA [id number] [place] [address] [facility] ([facility]) [Entitic mass] 31.7 pg Normal 26.0-34.0 [facility] Comment on above: Order Comment: Speci men Type: BLOOD SPECIMENOrdering Facility: [facility] Address: [address] [place] [address] Performed By: #### 5 7021-8 ####[facility] LABCLIA [id number] [place] [address] MCHC (RBC) [Mass/Vol] 31.7 g/dL Normal 30.5-36.0 [facility] Comment on above: Order Comment: Speci men Type: BLOOD SPECIMENOrdering Facility: [facility] Address: [address] [place] [address] Performed By: #### 5 7021-8 ####[facility] LABIA [id number] [place] [address] MCV (RBC) [Entitic vol] 100.0 fL Normal 80.0-100.[address] [facility] Comment on above: Order Comment: Speci men Type: BLOOD SPECIMENOrdering Facility: [facility] Address: [address] [place] [address] Performed By: #### 5 7021-8 ####[facility] LABCLIA [id number] [place] [address] Monocytes (Bld) [#/Vol] 0.18 10*3/uL Normal <0.87 [facility] Comment on above: Order Comment: Speci men Type: BLOOD SPECIMENOrdering Facility: [facility] Address: [address] [place] [address] Performed By: #### 5 7021-8 ####[facility] LABCLIA [id number] [place] [address] Monocytes/100 WBC (Bld) 4.2 % Normal [facility] Comment on above: Order Comment: Speci men Type: BLOOD SPECIMENOrdering Facility: [facility] Address: [address] [place] [address] Performed By: #### 5 7021-8 ####[facility] LABCLIA [id number] [place] [address] Neutrophils (Bld) [#/Vol] 2.52 10*3/uL Normal 1.45-7.50 [facility] Comment on above: Order Comment: Speci men Type: BLOOD SPECIMENOrdering Facility: [facility] Address: [address] [place] [address] Performed By: #### 5 7021-8 ####[facility] LABCLIA [id number] [place] [address] Neutrophils/100 WBC (Bld) 58.4 % Normal [facility] Comment on above: Order Comment: Speci men Type: BLOOD SPECIMENOrdering Facility: [facility] Address: [address] [place] [address] Performed By: #### 5 7021-8 ####[facility] LABCLIA [id number] [place] [address] Nucleated RBC (Bld) [#/Vol] 10*3/uL Normal <0.01 [facility] Comment on above: Order Comment: Speci men Type: BLOOD SPECIMENOrdering Facility: [facility] Address: [address] [place] [address] Performed By: #### 5 7021-8 ####[facility] LABCLIA [id number] [place] [address] Nucleated RBC/100 WBC (Bld) [Ratio] 0.0 /100 WBC Normal [facility] Comment on above: Order Comment: Speci men Type: BLOOD SPECIMENOrdering Facility: [facility] Address: [address] [place] [address] Performed By: #### 5 7021-8 ####[facility] LABCLIA [id number] [place] [address] Platelet mean volume (Bld) [Entitic vol] 9.1 fL Normal 9.0-12.7 [facility] Comment on above: Order Comment: Speci men Type: BLOOD SPECIMENOrdering Facility: [facility] Address: [address] [place] [address] Performed By: #### 5 7021-8 ####[facility] LABCLIA [id number] [place] [address] Platelets (Bld) [#/Vol] 139 10*3/uL Low 150-400 [facility] Comment on above: Order Comment: Speci men Type: BLOOD SPECIMENOrdering Facility: [facility] Address: [address] [place] [address] Performed By: #### 5 7021-8 ####[facility] LABCLIA [id number] [place] [address] RBC (Bld) [#/Vol] 3.44 10*6/uL Low 3.90-5.20 [facility] Comment on above: Order Comment: Speci men Type: BLOOD SPECIMENOrdering Facility: [facility] Address: [address] [place] [address] Performed By: #### 5 7021-8 ####[facility] LABCLIA [id number] [place] [address] WBC (Bld) [#/Vol] 4.31 10*3/uL Normal 3.70-11.00 [facility] Comment on above: Order Comment: Speci men Type: BLOOD SPECIMENOrdering Facility: [facility] Address: [address] [place] [address] Performed By: #### 5 7021-8 ####[facility] LABCLIA [id number] [place] [address] CNNURSEon 07-11-2024 CNNURSE Normal [facility] CNOVSPon 07-11-2024 CNOVSP Normal [facility] Comprehensive metabolic 2000 panelon 07-11-2024 Albumin [Mass/Vol] 3.8 g/dL Low 3.9-4.9 [facility] Comment on above: Order Comment: Speci men Type: BLOOD SPECIMENOrdering Facility: [facility] Address: [address] [place] [address] Performed By: #### 2 4323-8 ####[facility] LABCLIA [id number] [place] [address] ALP [Catalytic activity/Vol] 68 U/L Normal 34-123 [facility] Comment on above: Order Comment: Speci men Type: BLOOD SPECIMENOrdering Facility: [facility] Address: [address] [place] [address] Performed By: #### 2 4323-8 ####[facility] LABCLIA [id number] [place] [address] ALT [Catalytic activity/Vol] 11 U/L Normal 7-38 [facility] Comment on above: Order Comment: Speci men Type: BLOOD SPECIMENOrdering Facility: [facility] Address: [address] [place] [address] Performed By: #### 2 4323-8 ####[facility] LABCLIA [id number] [place] [address] Anion gap [Moles/Vol] 7 mmol/L Low 8-15 [facility] Comment on above: Order Comment: Speci men Type: BLOOD SPECIMENOrdering Facility: [facility] Address: [address] [place] [address] Performed By: #### 2 4323-8 ####[facility] LABIA [id number] [place] [address] AST [Catalytic activity/Vol] 18 U/L Normal 13-35 [facility] Comment on above: Order Comment: Speci men Type: BLOOD SPECIMENOrdering Facility: [facility] Address: [address] [place] [address] Performed By: #### 2 4323-8 ####[facility] LABCLIA [id number] [place] [address] Bilirubin [Mass/Vol] 0.4 mg/dL Normal 0.2-1.3 [facility] Comment on above: Order Comment: Speci men Type: BLOOD SPECIMENOrdering Facility: [facility] Address: [address] [place] [address] Performed By: #### 2 4323-8 ####[facility] LABCLIA [id number] [place] [address] Calcium [Mass/Vol] 9.8 mg/dL Normal 8.5-10.2 [facility] Comment on above: Order Comment: Speci men Type: BLOOD SPECIMENOrdering Facility: [facility] Address: [address] [place] [address] Performed By: #### 2 4323-8 ####[facility] LABCLIA [id number] [place] [address] Chloride [Moles/Vol] 106 mmol/L Normal 98-107 [facility] Comment on above: Order Comment: Speci men Type: BLOOD SPECIMENOrdering Facility: [facility] Address: [address] [place] [address] Performed By: #### 2 4323-8 ####[facility] LABCLIA [id number] [place] [address] CO2 [Moles/Vol] 25 mmol/L Normal 22-30 [facility] Comment on above: Order Comment: Speci men Type: BLOOD SPECIMENOrdering Facility: [facility] Address: [address] [place] [address] Performed By: #### 2 4323-8 ####[facility] LABCLIA [id number] [place] [address] Creatinine [Mass/Vol] 1.34 mg/dL High 0.58-0.96 [facility] Comment on above: Order Comment: Fabricio tapia Type: BLOOD SPECIMENOrdering Facility: [facility] Address: [address] [id number] Performed By: #### 2 4323-8 ####[facility] LABCLIA [id number] [place] [address] Creatinine and Glomerular filtration rate.predicted panel (S/P/Bld) 42 mL/min/1.73m??? Low >=60 [facility] Comment on above: Order Comment: Speci men Type: BLOOD SPECIMENOrdering Facility: [facility] Address: [address] [place] [address] Result Comment: Miryam mated Glomerular Filtration Rate [...] actual GFR. Performed By: #### 2 4323-8 ####[facility] LABCLIA [id number] [place] [address] Glucose [Mass/Vol] 111 mg/dL High 74-99 [facility] Comment on above: Order Comment: Fabricio tapia Type: BLOOD SPECIMENOrdering Facility: [facility] Address: [address] [id number] Result Comment: The [place] [employer] (ADA) provides guidance for cutoff [...] Standards of Medical Care in Diabetes 2016, [place] [employer]. Diabetes Care. 2016.39(Suppl 1). Performed By: #### 2 4323-8 ####[facility] LABCLIA [id number] [place] [address] Potassium [Moles/Vol] 5.1 mmol/L Normal 3.7-5.1 [facility] Comment on above: Order Comment: Speci men Type: BLOOD SPECIMENOrdering Facility: [facility] Address: [address] [place] [address] Performed By: #### 2 4323-8 ####[facility] LABCLIA [id number] [place] [address] Protein [Mass/Vol] 7.1 g/dL Normal 6.3-8.0 [facility] Comment on above: Order Comment: Speci men Type: BLOOD SPECIMENOrdering Facility: [facility] Address: [address] [place] [address] Performed By: #### 2 4323-8 ####[facility] LABCLIA [id number] [place] [address] Sodium [Moles/Vol] 138 mmol/L Normal 136-144 [facility] Comment on above: Order Comment: Speci men Type: BLOOD SPECIMENOrdering Facility: [facility] Address: [address] [place] [address] Performed By: #### 2 4323-8 ####[facility] LABCLIA [id number] [place] [address] Urea nitrogen [Mass/Vol] 34 mg/dL High 7-21 [facility] Comment on above: Order Comment: Speci men Type: BLOOD SPECIMENOrdering Facility: [facility] Address: [address] [place] [address] Performed By: #### 2 4323-8 ####[facility] LABCLIA [id number] [place] [address] Ferritin SerPl-ncon 2024 Ferritin [Mass/Vol] 90.3 ng/mL Normal 14.7-205.1 [facility] Comment on above: Order Comment: Speci men Type: BLOOD SPECIMENOrdering Facility: [facility] Address: [address] [place] [address] Performed By: #### 2 132-9, 2276-4, 2284-8, 35998-0 ####[facility] LABCLIA [id number] [place] [address] [place] Folate SerPl-ncon 07-11-19 25 Folate [Mass/Vol] 5.4 ng/mL Normal >4.7 [facility] Comment on above: Order Comment: Speci men Type: BLOOD SPECIMENOrdering Facility: [facility] Address: [address] [place] [address] Performed By: #### 2 132-9, 2276-4, 2284-8, 06823-6 ####[facility] LABCLIA [id number] [place] [address] [place] Iron and Iron binding capaci ty panelon 07-11-2024 Iron [Mass/Vol] 54 ug/dL Normal 41-186 [facility] Comment on above: Order Comment: Speci men Type: BLOOD SPECIMENOrdering Facility: [facility] Address: [address] [place] [address] Performed By: #### 2 132-9, 2276-4, 2284-8, 45706-4 ####[facility] LABCLIA [id number] [place] [address] [place] Iron binding capacity [Mass/Vol] 362 ug/dL Normal 232-386 [facility] Comment on above: Order Comment: Speci men Type: BLOOD SPECIMENOrdering Facility: [facility] Address: [address] [place] [address] Performed By: #### 2 132-9, 2276-4, 2284-8, 32776-6 ####[facility] LABCLIA [id number] [address] [address] [place] Iron/TIBC [Molar ratio] 14.9 % Low 15.0-57.[address] [facility] Comment on above: Order Comment: Speci men Type: BLOOD SPECIMENOrdering Facility: [facility] Address: [address] [place] [address] Performed By: #### 2 132-9, 2276-4, 2284-8, 38242-6 ####[facility] LABCLIA [id number] [address] [address] [place] Vit B12 [facility] Cobalamin (Vitamin B12) [Mass/Vol] 508 pg/mL Normal 232-1245 [facility] Comment on above: Order Comment: Speci men Type: BLOOD SPECIMENOrdering Facility: [facility] Address: [address] [place] [address] Performed By: #### 2 132-9, 2276-4, 2284-8, 27836-7 ####[facility] LABCLIA [id number] [address] [id number] [place] Follow-Upon 05-31-2024 Follow-Up [id number] Andrei Fish 1950 F Date Provider Department Center 05/31/2024 Sean-MASSIEL BALLARD MP ORTHO MPORTHO No family history on file Level of Service:33256 [place] OFFICE/OUTPATIENT ESTABLISHED MOD MDM 30 MIN (GC) Reason for Visit and Comments: Follow-up [677356] Pain [136] Normal [facility] CBC W Auto Differential pane l (Bld)on 05-30-2024 Basophils (Bld) [#/Vol] 10*3/uL Normal <0.[address] [facility] Comment on above: Order Comment: Speci men Type: BLOOD SPECIMENOrdering Facility: [facility] Address: [address] [place] [address] Performed By: #### 5 7021-8 ####[facility] LABCLIA [id number] [place] [address] Basophils/100 WBC (Bld) 0.2 % Normal [facility] Comment on above: Order Comment: Speci men Type: BLOOD SPECIMENOrdering Facility: [facility] Address: [address] [place] [address] Performed By: #### 5 7021-8 ####[facility] LABCLIA [id number] [place] [address] Differential cell count method Nom (Bld) Auto Normal [facility] Comment on above: Order Comment: Speci men Type: BLOOD SPECIMENOrdering Facility: [facility] Address: [address] [place] [address] Performed By: #### 5 7021-8 ####[facility] LABCLIA [id number] [place] [address] Eosinophils (Bld) [#/Vol] 0.03 10*3/uL Normal <0.46 [facility] Comment on above: Order Comment: Speci men Type: BLOOD SPECIMENOrdering Facility: [facility] Address: [address] [place] [address] Performed By: #### 5 7021-8 ####[facility] LABCLIA [id number] [place] [address] Eosinophils/100 WBC (Bld) 0.7 % Normal [facility] Comment on above: Order Comment: Speci men Type: BLOOD SPECIMENOrdering Facility: [facility] Address: [address] [place] [address] Performed By: #### 5 7021-8 ####[facility] LABCLIA [id number] [place] [address] Erythrocyte distribution width (RBC) [Ratio] 14.6 % Normal 11.5-15.0 [facility] Comment on above: Order Comment: Speci men Type: BLOOD SPECIMENOrdering Facility: [facility] Address: [address] [place] [address] Performed By: #### 5 7021-8 ####[facility] LABCLIA [id number] [place] [address] Hematocrit (Bld) [Volume fraction] 32.8 % Low 36.0-46.0 [facility] Comment on above: Order Comment: Speci men Type: BLOOD SPECIMENOrdering Facility: [facility] Address: [address] [place] [address] Performed By: #### 5 7021-8 ####[facility] LABCLIA [id number] [place] [address] Hemoglobin (Bld) [Mass/Vol] 10.5 g/dL Low 11.5-15.5 [facility] Comment on above: Order Comment: Speci men Type: BLOOD SPECIMENOrdering Facility: [facility] Address: [address] [place] [address] Performed By: #### 5 7021-8 ####[facility] LABCLIA [id number] [place] [address] Immature granulocytes (Bld) [#/Vol] 10*3/uL Normal <0.10 [facility] Comment on above: Order Comment: Speci men Type: BLOOD SPECIMENOrdering Facility: [facility] Address: [address] [place] [address] Performed By: #### 5 7021-8 ####[facility] LABCLIA [id number] [place] [address] Immature granulocytes/100 WBC (Bld) 0.2 % Normal [facility] Comment on above: Order Comment: Speci men Type: BLOOD SPECIMENOrdering Facility: [facility] Address: [address] [place] [address] Performed By: #### 5 7021-8 ####[facility] LABCLIA [id number] [place] [address] Lymphocytes (Bld) [#/Vol] 1.98 10*3/uL Normal 1.00-4.00 [facility] Comment on above: Order Comment: Speci men Type: BLOOD SPECIMENOrdering Facility: [facility] Address: [address] [place] [address] Performed By: #### 5 7021-8 ####[facility] LABCLIA [id number] [place] [address] Lymphocytes/100 WBC (Bld) 43.3 % Normal [facility] Comment on above: Order Comment: Speci men Type: BLOOD SPECIMENOrdering Facility: [facility] Address: [address] [place] [address] Performed By: #### 5 7021-8 ####[facility] LABCLIA [id number] [place] [address] MCH (RBC) [Entitic mass] 31.7 pg Normal 26.0-34.0 [facility] Comment on above: Order Comment: Speci men Type: BLOOD SPECIMENOrdering Facility: [facility] Address: [address] [place] [address] Performed By: #### 5 7021-8 ####[facility] LABCLIA [id number] [place] [address] MCHC (RBC) [Mass/Vol] 32.0 g/dL Normal 30.5-36.0 [facility] Comment on above: Order Comment: Speci men Type: BLOOD SPECIMENOrdering Facility: [facility] Address: [address] [place] [address] Performed By: #### 5 7021-8 ####[facility] LABCLIA [id number] [place] [address] MCV (RBC) [Entitic vol] 99.1 fL Normal 80.0-100.[address] [facility] Comment on above: Order Comment: Speci men Type: BLOOD SPECIMENOrdering Facility: [facility] Address: [address] [place] [address] Performed By: #### 5 7021-8 ####[facility] LABCLIA [id number] [place] [address] Monocytes (Bld) [#/Vol] 0.20 10*3/uL Normal <0.87 [facility] Comment on above: Order Comment: Speci men Type: BLOOD SPECIMENOrdering Facility: [facility] Address: [address] [place] [address] Performed By: #### 5 7021-8 ####[facility] LABCLIA [id number] [place] [address] Monocytes/100 WBC (Bld) 4.4 % Normal [facility] Comment on above: Order Comment: Speci men Type: BLOOD SPECIMENOrdering Facility: [facility] Address: [address] [place] [address] Performed By: #### 5 7021-8 ####[facility] LABIA [id number] [place] [address] Neutrophils (Bld) [#/Vol] 2.34 10*3/uL Normal 1.45-7.50 [facility] Comment on above: Order Comment: Speci men Type: BLOOD SPECIMENOrdering Facility: [facility] Address: [address] [place] [address] Performed By: #### 5 7021-8 ####[facility] LABCLIA [id number] [place] [address] Neutrophils/100 WBC (Bld) 51.2 % Normal [facility] Comment on above: Order Comment: Speci men Type: BLOOD SPECIMENOrdering Facility: [facility] Address: [address] [place] [address] Performed By: #### 5 7021-8 ####[facility] LABIA [id number] [place] [address] Nucleated RBC (Bld) [#/Vol] 10*3/uL Normal <0.01 [facility] Comment on above: Order Comment: Speci men Type: BLOOD SPECIMENOrdering Facility: [facility] Address: [address] [place] [address] Performed By: #### 5 7021-8 ####[facility] LABCLIA [id number] [place] [address] Nucleated RBC/100 WBC (Bld) [Ratio] 0.0 /100 WBC Normal [facility] Comment on above: Order Comment: Speci men Type: BLOOD SPECIMENOrdering Facility: [facility] Address: [address] [place] [address] Performed By: #### 5 7021-8 ####[facility] LABCLIA [id number] [place] [address] Platelet mean volume (Bld) [Entitic vol] 9.5 fL Normal 9.0-12.7 [facility] Comment on above: Order Comment: Speci men Type: BLOOD SPECIMENOrdering Facility: [facility] Address: [address] [place] [address] Performed By: #### 5 7021-8 ####[facility] LABCLIA [id number] [place] [address] Platelets (Bld) [#/Vol] 157 10*3/uL Normal 150-400 [facility] Comment on above: Order Comment: Speci men Type: BLOOD SPECIMENOrdering Facility: [facility] Address: [address] [place] [address] Performed By: #### 5 7021-8 ####[facility] LABCLIA [id number] [place] [address] RBC (Bld) [#/Vol] 3.31 10*6/uL Low 3.90-5.20 [facility] Comment on above: Order Comment: Speci men Type: BLOOD SPECIMENOrdering Facility: [facility] Address: [address] [place] [address] Performed By: #### 5 7021-8 ####[facility] LABCLIA [id number] [place] [address] WBC (Bld) [#/Vol] 4.57 10*3/uL Normal 3.70-11.00 [facility] Comment on above: Order Comment: Speci men Type: BLOOD SPECIMENOrdering Facility: [facility] Address: [address] [place] [address] Performed By: #### 5 7021-8 ####[facility] LABCLIA [id number] [place] [address] CNNURSEon 05-30-2024 CNNURSE Normal [facility] CNOVSPon 05-30-2024 CNOVSP Normal [facility] Comprehensive metabolic 2000 panelon 05-30-2024 Albumin [Mass/Vol] 3.7 g/dL Low 3.9-4.9 [facility] Comment on above: Order Comment: Speci men Type: BLOOD SPECIMENOrdering Facility: [facility] Address: [address] [place] [address] Performed By: #### 2 4323-8 ####[facility] LABCLIA [id number] [place] [address] ALP [Catalytic activity/Vol] 74 U/L Normal 34-123 [facility] Comment on above: Order Comment: Speci men Type: BLOOD SPECIMENOrdering Facility: [facility] Address: [address] [place] [address] Performed By: #### 2 4323-8 ####[facility] LABCLIA [id number] [place] [address] ALT [Catalytic activity/Vol] 13 U/L Normal 7-38 [facility] Comment on above: Order Comment: Speci men Type: BLOOD SPECIMENOrdering Facility: [facility] Address: [address] [place] [address] Performed By: #### 2 4323-8 ####[facility] LABCLIA [id number] [place] [address] Anion gap [Moles/Vol] 8 mmol/L Normal 8-15 [facility] Comment on above: Order Comment: Speci men Type: BLOOD SPECIMENOrdering Facility: [facility] Address: [address] [place] [address] Performed By: #### 2 4323-8 ####[facility] LABCLIA [id number] [place] [address] AST [Catalytic activity/Vol] 20 U/L Normal 13-35 [facility] Comment on above: Order Comment: Speci men Type: BLOOD SPECIMENOrdering Facility: [facility] Address: [address] [place] [address] Performed By: #### 2 4323-8 ####[facility] LABCLIA [id number] [place] [address] Bilirubin [Mass/Vol] 0.5 mg/dL Normal 0.2-1.3 [facility] Comment on above: Order Comment: Speci men Type: BLOOD SPECIMENOrdering Facility: [facility] Address: [address] [place] [address] Performed By: #### 2 4323-8 ####[facility] LABCLIA [id number] [place] [address] Calcium [Mass/Vol] 9.4 mg/dL Normal 8.5-10.2 [facility] Comment on above: Order Comment: Speci men Type: BLOOD SPECIMENOrdering Facility: [facility] Address: [address] [place] [address] Performed By: #### 2 4323-8 ####[facility] LABCLIA [id number] [place] [address] Chloride [Moles/Vol] 106 mmol/L Normal 98-107 [facility] Comment on above: Order Comment: Speci men Type: BLOOD SPECIMENOrdering Facility: [facility] Address: [address] [place] [address] Performed By: #### 2 4323-8 ####[facility] LABCLIA [id number] [place] [address] CO2 [Moles/Vol] 27 mmol/L Normal 22-30 [facility] Comment on above: Order Comment: Speci men Type: BLOOD SPECIMENOrdering Facility: [facility] Address: [address] [place] [address] Performed By: #### 2 4323-8 ####[facility] LABCLIA [id number] [place] [address] Creatinine [Mass/Vol] 1.24 mg/dL High 0.58-0.96 [facility] Comment on above: Order Comment: Speci men Type: BLOOD SPECIMENOrdering Facility: [facility] Address: [address] [place] [address] Performed By: #### 2 4323-8 ####[facility] LABCLIA [id number] [place] [address] Creatinine and Glomerular filtration rate.predicted panel (S/P/Bld) 46 mL/min/1.73m??? Low >=60 [facility] Comment on above: Order Comment: Speci men Type: BLOOD SPECIMENOrdering Facility: [facility] Address: [address] [place] [address] Result Comment: Miryam mated Glomerular Filtration Rate [...] actual GFR. Performed By: #### 2 4323-8 ####[facility] LABCLIA [id number] [place] [address] Glucose [Mass/Vol] 118 mg/dL High 74-99 [facility] Comment on above: Order Comment: Speci men Type: BLOOD SPECIMENOrdering Facility: [facility] Address: [address] [place] [address] Result Comment: The [place] Diabetes Association (ADA) provides guidance for cutoff [...] Standards of Medical Care in Diabetes 2016, [place] [employer]. Diabetes Care. 2016.39(Suppl 1). Performed By: #### 2 4323-8 ####[facility] LABCLIA [id number] [place] [address] Potassium [Moles/Vol] 4.8 mmol/L Normal 3.7-5.1 [facility] Comment on above: Order Comment: Speci men Type: BLOOD SPECIMENOrdering Facility: [facility] Address: [address] [place] [address] Performed By: #### 2 4323-8 ####[facility] LABCLIA [id number] [place] [address] Protein [Mass/Vol] 7.3 g/dL Normal 6.3-8.0 [facility] Comment on above: Order Comment: Speci men Type: BLOOD SPECIMENOrdering Facility: [facility] Address: [address] [place] [address] Performed By: #### 2 4323-8 ####[facility] LABCLIA [id number] [place] [address] Sodium [Moles/Vol] 141 mmol/L Normal 136-144 [facility] Comment on above: Order Comment: Speci men Type: BLOOD SPECIMENOrdering Facility: [facility] Address: [address] [place] [address] Performed By: #### 2 4323-8 ####[facility] LABCLIA [id number] [place] [address] Urea nitrogen [Mass/Vol] 32 mg/dL High 7-21 [facility] Comment on above: Order Comment: Speci men Type: BLOOD SPECIMENOrdering Facility: [facility] Address: [address] [place] [address] Performed By: #### 2 4323-8 ####[facility] LABCLIA [id number] [place] [address] Ferritin SerPl-mCncon 2023 Ferritin [Mass/Vol] 104.0 ng/mL Normal 14.7-205.1 [facility] Comment on above: Order Comment: Speci men Type: BLOOD SPECIMENOrdering Facility: [facility] Address: [address] [place] [address] Performed By: #### 5 0190-8, 9, 4, 8 ####[facility] LABCLIA [id number] [place] [address] [place] Folate SerPl-mCncon 05-30-20 24 Folate [Mass/Vol] 5.1 ng/mL Normal >4.7 [facility] Comment on above: Order Comment: Speci men Type: BLOOD SPECIMENOrdering Facility: [facility] Address: [address] [place] [address] Performed By: #### 5 0190-8, 2131-9, 4, 8 ####[facility] LABCLIA [id number] [place] [address] [place] Iron and Iron binding capaci ty panelon 05-30-2024 Iron [Mass/Vol] 74 ug/dL Normal 41-186 [facility] Comment on above: Order Comment: Speci men Type: BLOOD SPECIMENOrdering Facility: [facility] Address: [address] [place] [address] Performed By: #### 5 0190-8, 2131-9, 2275-4, 2284-02 ####[facility] LABCLIA [id number] [place] [address] [place] Iron binding capacity [Mass/Vol] 349 ug/dL Normal 232-386 [facility] Comment on above: Order Comment: Speci men Type: BLOOD SPECIMENOrdering Facility: [facility] Address: [address] [place] [address] Performed By: #### 5 0190-8, 9, 2275-10, 2284-02 ####[facility] LABCLIA [id number] [place] [address] [place] Iron/TIBC [Molar ratio] 21.2 % Normal 15.0-57.0 [facility] Comment on above: Order Comment: Speci men Type: BLOOD SPECIMENOrdering Facility: [facility] Address: [address] [place] [address] Performed By: #### 5 0190-8, 2132-03, 2275-10, 2284-02 ####[facility] LABIA [id number] [place] [address] [place] Vit B12 SerPl-mCncon 024 Cobalamin (Vitamin B12) [Mass/Vol] 488 pg/mL Normal 232-1245 [facility] Comment on above: Order Comment: Speci men Type: BLOOD SPECIMENOrdering Facility: [facility] Address: [address] [place] [address] Performed By: #### 5 0190-8, 2132-03, 2275-10, 2284-02 ####[facility] LABCLIA [id number] [place] [id number] [place] C-REACTIVE PROTEINon 024 C REACTIVE PROTEIN (MG/L) IN SER/PLAS 14.7 mg/L High <=5.0 [facility] Comment on above: Result Comment: Test ing performed using a new methodology, turbidimetry. Normal ranges have been updated. Old normal range was <8 mg/L. Performed By: #### L AB149 #### [facility] [address] [place] [address] Labon 05-21-2024 Lab [id number] Andrei Fish 1950 F Date Provider Department Center 05/21/2024 2244-[facility] MP LAB RESOURCE MP DRAW Medical Pavi No family history on file Normal [facility] Office Visiton 05-21-2024 Follow-up visit [id number] Andrei Fish 1950 F Date Provider Department Center 05/21/2024 499-[facility] MP ORTHO MPORTHO No family history on file Level of Service:68168 [place] OFFICE/OUTPATIENT ESTABLISHED LOW MDM 20 MIN Reason for Visit and Comments: New Patient [632] - Patient reports pain worse when walking, reports had tibia fx with repair in 2003 from , patient reports swelling and tenderness to read. Normal [facility] SEDIMENTATION RATEon 024 SEDIMENTATION RATE, ERYTHROCYTE 91 mm/hr High <=20 [facility] Comment on above: Performed By: #### L AB322 #### [facility] [address] [place] [address] XR Lumbar spine 2 or 3 Views [...] lumbar spine globally no acute bony process. [facility] Radiology Study observation (narrative) [facility] CBC W Auto Differential pane l (Bld)on 04-18-2024 Basophils (Bld) [#/Vol] 10*3/uL Normal <0.[address] [facility] Comment on above: Order Comment: Speci men Type: BLOOD SPECIMENOrdering Facility: [facility] Address: [address] [place] [address] [place] [address] Performed By: #### 5 7021-8, 81317-5 ####[facility] LABCLIA [id number] [place] [address] Basophils/100 WBC (Bld) 0.2 % Normal [facility] Comment on above: Order Comment: Speci men Type: BLOOD SPECIMENOrdering Facility: [facility] Address: [address] [place] [address] Performed By: #### 5 7021-8, 41906-3 ####[facility] LABCLIA [id number] [place] [address] Differential cell count method Nom (Bld) Auto Normal [facility] Comment on above: Order Comment: Speci men Type: BLOOD SPECIMENOrdering Facility: [facility] Address: [address] [place] [address] Performed By: #### 5 7021-8, 79960-9 ####[facility] LABCLIA [id number] [place] [address] Eosinophils (Bld) [#/Vol] 0.03 10*3/uL Normal <0.46 [facility] Comment on above: Order Comment: Speci men Type: BLOOD SPECIMENOrdering Facility: [facility] Address: [address] [place] [address] Performed By: #### 5 7021-8, 37887-1 ####[facility] LABCLIA [id number] [place] [address] Eosinophils/100 WBC (Bld) 0.5 % Normal [facility] Comment on above: Order Comment: Speci men Type: BLOOD SPECIMENOrdering Facility: [facility] Address: [address] [place] [address] Performed By: #### 5 7021-8, 64340-1 ####[facility] LABCLIA [id number] [place] [address] Erythrocyte distribution width (RBC) [Ratio] 14.9 % Normal 11.5-15.0 [facility] Comment on above: Order Comment: Speci men Type: BLOOD SPECIMENOrdering Facility: [facility] Address: [address] [place] [address] Performed By: #### 5 7021-8, 55545-2 ####[facility] LABIA [id number] [place] [address] Hematocrit (Bld) [Volume fraction] 33.3 % Low 36.0-46.0 [facility] Comment on above: Order Comment: Speci men Type: BLOOD SPECIMENOrdering Facility: [facility] Address: [address] [place] [address] Performed By: #### 5 7021-8, 89238-9 ####[facility] LABIA [id number] [place] [address] Hemoglobin (Bld) [Mass/Vol] 10.7 g/dL Low 11.5-15.5 [facility] Comment on above: Order Comment: Speci men Type: BLOOD SPECIMENOrdering Facility: [facility] Address: [address] [place] [address] Performed By: #### 5 7021-8, 38620-5 ####[facility] LABIA [id number] [place] [address] Immature granulocytes (Bld) [#/Vol] 10*3/uL Normal <0.10 [facility] Comment on above: Order Comment: Speci men Type: BLOOD SPECIMENOrdering Facility: [facility] Address: [address] [place] [address] Performed By: #### 5 7021-8, 64654-8 ####[facility] LABIA [id number] [place] [address] Immature granulocytes/100 WBC (Bld) 0.2 % Normal [facility] Comment on above: Order Comment: Speci men Type: BLOOD SPECIMENOrdering Facility: [facility] Address: [address] [place] [address] Performed By: #### 5 7021-8, 83956-8 ####[facility] LABCLIA [id number] [place] [address] Lymphocytes (Bld) [#/Vol] 2.35 10*3/uL Normal 1.00-4.00 [facility] Comment on above: Order Comment: Speci men Type: BLOOD SPECIMENOrdering Facility: [facility] Address: [address] [place] [address] Performed By: #### 5 7021-8, 66007-1 ####[facility] LABCLIA [id number] [place] [address] Lymphocytes/100 WBC (Bld) 41.8 % Normal [facility] Comment on above: Order Comment: Speci men Type: BLOOD SPECIMENOrdering Facility: [facility] Address: [address] [place] [address] Performed By: #### 5 7021-8, 11535-4 ####[facility] LABCLIA [id number] [place] [address] MCH (RBC) [Entitic mass] 31.5 pg Normal 26.0-34.0 [facility] Comment on above: Order Comment: Speci men Type: BLOOD SPECIMENOrdering Facility: [facility] Address: [address] [place] [address] Performed By: #### 5 7021-8, 45600-7 ####[facility] LABCLIA [id number] [place] [address] MCHC (RBC) [Mass/Vol] 32.1 g/dL Normal 30.5-36.0 [facility] Comment on above: Order Comment: Speci men Type: BLOOD SPECIMENOrdering Facility: [facility] Address: [address] [place] [address] Performed By: #### 5 7021-8, 09719-4 ####[facility] LABCLIA [id number] [place] [address] MCV (RBC) [Entitic vol] 97.9 fL Normal 80.0-100.[address] [facility] Comment on above: Order Comment: Speci men Type: BLOOD SPECIMENOrdering Facility: [facility] Address: [address] [place] [address] Performed By: #### 5 7021-8, 23483-5 ####[facility] LABCLIA [id number] [place] [address] Monocytes (Bld) [#/Vol] 0.29 10*3/uL Normal <0.87 [facility] Comment on above: Order Comment: Speci men Type: BLOOD SPECIMENOrdering Facility: [facility] Address: [address] [place] [address] Performed By: #### 5 7021-8, 06671-7 ####[facility] LABCLIA [id number] [place] [address] Monocytes/100 WBC (Bld) 5.2 % Normal [facility] Comment on above: Order Comment: Speci men Type: BLOOD SPECIMENOrdering Facility: [facility] Address: [address] [place] [address] Performed By: #### 5 7021-8, 03926-4 ####[facility] LABCLIA [id number] [place] [address] Neutrophils (Bld) [#/Vol] 2.93 10*3/uL Normal 1.45-7.50 [facility] Comment on above: Order Comment: Speci men Type: BLOOD SPECIMENOrdering Facility: [facility] Address: [address] [place] [address] Performed By: #### 5 7021-8, 44325-5 ####[facility] LABCLIA [id number] [place] [address] Neutrophils/100 WBC (Bld) 52.1 % Normal [facility] Comment on above: Order Comment: Speci men Type: BLOOD SPECIMENOrdering Facility: [facility] Address: [address] [place] [address] Performed By: #### 5 7021-8, 25806-1 ####[facility] LABCLIA [id number] [place] [address] Nucleated RBC (Bld) [#/Vol] 10*3/uL Normal <0.01 [facility] Comment on above: Order Comment: Speci men Type: BLOOD SPECIMENOrdering Facility: [facility] Address: [address] [place] [address] Performed By: #### 5 7021-8, 55489-7 ####[facility] LABCLIA [id number] [place] [address] Nucleated RBC/100 WBC (Bld) [Ratio] 0.0 /100 WBC Normal [facility] Comment on above: Order Comment: Speci men Type: BLOOD SPECIMENOrdering Facility: [facility] Address: [address] [place] [address] Performed By: #### 5 7021-8, 67543-1 ####[facility] LABCLIA [id number] [place] [address] Platelet mean volume (Bld) [Entitic vol] 9.7 fL Normal 9.0-12.7 [facility] Comment on above: Order Comment: Speci men Type: BLOOD SPECIMENOrdering Facility: [facility] Address: [address] [place] [address] Performed By: #### 5 7021-8, 98182-4 ####[facility] LABCLIA [id number] [place] [address] Platelets (Bld) [#/Vol] 174 10*3/uL Normal 150-400 [facility] Comment on above: Order Comment: Speci men Type: BLOOD SPECIMENOrdering Facility: [facility] Address: [address] [place] [address] Performed By: #### 5 7021-8, 36677-2 ####[facility] LABCLIA [id number] [place] [address] RBC (Bld) [#/Vol] 3.40 10*6/uL Low 3.90-5.20 [facility] Comment on above: Order Comment: Speci men Type: BLOOD SPECIMENOrdering Facility: [facility] Address: [address] [place] [address] Performed By: #### 5 7021-8, 15371-0 ####[facility] LABCLIA [id number] [place] [address] WBC (Bld) [#/Vol] 5.62 10*3/uL Normal 3.70-11.00 [facility] Comment on above: Order Comment: Speci men Type: BLOOD SPECIMENOrdering Facility: [facility] Address: [address] [place] [address] Performed By: #### 5 7021-8, 76330-1 ####[facility] LABCLIA [id number] [place] [address] CNNURSEon 04-18-2024 CNNURSE Normal [facility] CNOVSPon 04-18-2024 CNOVSP Normal [facility] Comprehensive metabolic 2000 panelon 04-18-2024 Albumin [Mass/Vol] 3.7 g/dL Low 3.9-4.9 [facility] Comment on above: Order Comment: Speci men Type: BLOOD SPECIMENOrdering Facility: [facility] Address: [address] [place] [address] Performed By: #### 2 4323-8 ####[facility] LABCLIA [id number] [place] [address] ALP [Catalytic activity/Vol] 77 U/L Normal 34-123 [facility] Comment on above: Order Comment: Speci men Type: BLOOD SPECIMENOrdering Facility: [facility] Address: [address] [place] [address] Performed By: #### 2 4323-8 ####[facility] LABCLIA [id number] [place] [address] ALT [Catalytic activity/Vol] 13 U/L Normal 7-38 [facility] Comment on above: Order Comment: Speci men Type: BLOOD SPECIMENOrdering Facility: [facility] Address: [address] [place] [address] Performed By: #### 2 4323-8 ####[facility] LABCLIA [id number] [place] [address] Anion gap [Moles/Vol] 17 mmol/L High 8-15 [facility] Comment on above: Order Comment: Speci men Type: BLOOD SPECIMENOrdering Facility: [facility] Address: [address] [place] [address] Performed By: #### 2 4323-8 ####[facility] LABCLIA [id number] [place] [address] AST [Catalytic activity/Vol] 22 U/L Normal 13-35 [facility] Comment on above: Order Comment: Speci men Type: BLOOD SPECIMENOrdering Facility: [facility] Address: [address] [place] [address] Performed By: #### 2 4323-8 ####[facility] LABCLIA [id number] [place] [address] Bilirubin [Mass/Vol] 0.4 mg/dL Normal 0.2-1.3 [facility] Comment on above: Order Comment: Speci men Type: BLOOD SPECIMENOrdering Facility: [facility] Address: [address] [place] [address] Performed By: #### 2 4323-8 ####[facility] LABCLIA [id number] [place] [address] Calcium [Mass/Vol] 9.4 mg/dL Normal 8.5-10.2 [facility] Comment on above: Order Comment: Speci men Type: BLOOD SPECIMENOrdering Facility: [facility] Address: [address] [place] [address] Performed By: #### 2 4323-8 ####[facility] LABCLIA [id number] [place] [address] Chloride [Moles/Vol] 101 mmol/L Normal 98-107 [facility] Comment on above: Order Comment: Speci men Type: BLOOD SPECIMENOrdering Facility: [facility] Address: [address] [place] [address] Performed By: #### 2 4323-8 ####[facility] LABCLIA [id number] [place] [address] CO2 [Moles/Vol] 24 mmol/L Normal 22-30 [facility] Comment on above: Order Comment: Speci men Type: BLOOD SPECIMENOrdering Facility: [facility] Address: [address] [place] [address] Performed By: #### 2 4323-8 ####[facility] LABCLIA [id number] [place] [address] Creatinine [Mass/Vol] 1.18 mg/dL High 0.58-0.96 [facility] Comment on above: Order Comment: Speci men Type: BLOOD SPECIMENOrdering Facility: [facility] Address: [address] [place] [address] Performed By: #### 2 4323-8 ####[facility] LABCLIA [id number] [place] [address] Creatinine and Glomerular filtration rate.predicted panel (S/P/Bld) 49 mL/min/1.73m??? Low >=60 [facility] Comment on above: Order Comment: Speci men Type: BLOOD SPECIMENOrdering Facility: [facility] Address: [address] [place] [address] Result Comment: Miryam mated Glomerular Filtration Rate [...] actual GFR. Performed By: #### 2 4323-8 ####[facility] LABCLIA [id number] [place] [address] Glucose [Mass/Vol] 103 mg/dL High 74-99 [facility] Comment on above: Order Comment: Speci men Type: BLOOD SPECIMENOrdering Facility: [facility] Address: [address] [place], [place] [address] Result Comment: The [place] [employer] (ADA) provides guidance for cutoff [...] Standards of Medical Care in Diabetes 2016, [place] [employer]. Diabetes Care. 2016.39(Suppl 1). Performed By: #### 2 4323-8 ####[facility] LABIA [id number] [place] [address] Potassium [Moles/Vol] 4.9 mmol/L Normal 3.7-5.1 [facility] Comment on above: Order Comment: Speci men Type: BLOOD SPECIMENOrdering Facility: [facility] Address: [address] [place] [address] Performed By: #### 2 4323-8 ####[facility] LABCLIA [id number] [place] [address] Protein [Mass/Vol] 7.2 g/dL Normal 6.3-8.0 [facility] Comment on above: Order Comment: Fabricio men Type: BLOOD SPECIMENOrdering Facility: [facility] Address: [address] [place] [address] Performed By: #### 2 4323-8 ####[facility] LABCLIA [id number] [place] [address] Sodium [Moles/Vol] 142 mmol/L Normal 136-144 [facility] Comment on above: Order Comment: Speci men Type: BLOOD SPECIMENOrdering Facility: [facility] Address: [address] [place] [address] Performed By: #### 2 4323-8 ####[facility] LABCLIA [id number] [place] [address] Urea nitrogen [Mass/Vol] 30 mg/dL High 7-21 [facility] Comment on above: Order Comment: Speci men Type: BLOOD SPECIMENOrdering Facility: [facility] Address: [address] [place] [address] Performed By: #### 2 4323-8 ####[facility] LABCLIA [id number] [place] [address] EPO SerPl-aCncon 04-18-2024 Erythropoietin (EPO) Qn 70.1 mIU/mL High 2.6-18.5 [facility] Comment on above: Order Comment: Speci men Type: BLOOD SPECIMENOrdering Facility: [facility] Address: [address] [place] [address] Performed By: #### 1 5061-5 ####[facility] LABCLIA [id number] [place] [address] [place] Ferritin SerPl-mCncon 2023 Ferritin [Mass/Vol] 86.9 ng/mL Normal 14.7-205.1 [facility] Comment on above: Order Comment: Speci men Type: BLOOD SPECIMENOrdering Facility: [facility] Address: [address] [place] [address] Performed By: #### 5 0190-8, 2132-9, 2284-8, 2276-4 ####[facility] LABCLIA [id number] [place] [address] [facility] [place] Folate SerPl-mCncon 04-18-20 Folate [Mass/Vol] 6.2 ng/mL Normal >4.7 [facility] Comment on above: Order Comment: Fabricio tapia Type: BLOOD SPECIMENOrdering Facility: [facility] Address: [address] [place] [address] Performed By: #### 5 0190-8, 2132-9, 2284-8, 2276-4 ####[facility] LABCLIA [id number] [address] [place] HbA1c (Bld)on 04-18-2024 Average glucose Estimated from glycated hemoglobin (Bld) [Mass/Vol] 134 mg/dL [facility] Comment on above: eAG: (Estimated aver age glucose) is a calculated value from HgbA1c and is telephone services sales representative of the average blood glucose level in the last 2-3 month period. HbA1c (Bld) [Mass fraction] 6.3 % High 4.3 - 5.6 % [facility] Comment on above: [place] [employer] sociation guidelines indicate that patients with HgbA1c in the range 5.7-6.4% are at increased risk for development of diabetes, and intervention by lifestyle modification may be beneficial. HgbA1c greater or equal to 6.5% is considered diagnostic of diabetes. Interpretation and review of laboratory results Abnormal [facility] Average glucose Estimated from glycated hemoglobin (Bld) [Mass/Vol] 134 mg/dL Normal [facility] Comment on above: Order Comment: Fabricio tapia Type: BLOOD SPECIMENOrdering Facility: [facility] Address: [address] [place] [address] Result Comment: eAG: (Estimated average glucose) is a calculated value from HgbA1c and is telephone services sales representative of the average blood glucose level in the last 2-3 month period. Performed By: #### [id number] ####[facility] LABCLIA [id number] [address] [place] HbA1c (Bld) [Mass fraction] 6.3 % High 4.3-5.6 [facility] Comment on above: Order Comment: Speci men Type: BLOOD SPECIMENOrdering Facility: [facility] Address: [address] [place] [address] Result Comment: Amer [place] Diabetes Association guidelines indicate that patients with HgbA1c in the range 5.7-6.4% are at increased risk for development of diabetes, and intervention by lifestyle modification may be beneficial. HgbA1c greater or equal to 6.5% is considered diagnostic of diabetes. Performed By: #### 5 5454-3 ####[facility] LABCLIA [id number] [place] [address] [place] Iron and Iron binding capaci ty panel 04-18-2024 Iron [Mass/Vol] 69 ug/dL Normal 41-186 [facility] Comment on above: Order Comment: Speci men Type: BLOOD SPECIMENOrdering Facility: [facility] Address: [address] [place] [address] Performed By: #### 5 0190-8, 9, 2284-02, 2275-4 ####[facility] LABIA [id number] [place] [address] [place] Iron binding capacity [Mass/Vol] 340 ug/dL Normal 232-386 [facility] Comment on above: Order Comment: Speci men Type: BLOOD SPECIMENOrdering Facility: [facility] Address: [address] [place] [address] Performed By: #### 5 0190-8, 9, 2284-02, 2275-4 ####[facility] LABIA [id number] [place] [id number] [place] Iron/TIBC [Molar ratio] 20.3 % Normal 15.0-57.0 [facility] Comment on above: Order Comment: Speci men Type: BLOOD SPECIMENOrdering Facility: [facility] Address: [address] [place] [address] Performed By: #### 5 0190-8, 2131-9, 8, 6-4 ####[facility] LABCLIA [id number] [place] [id number] [place] Retics #on 04-18-2024 Reticulocytes (Bld) [#/Vol] 0.10589 10*3/uL Normal 0.018-0.100 [facility] Comment on above: Order Comment: Speci men Type: BLOOD SPECIMENOrdering Facility: [facility] Address: [address] [place] [address] Performed By: #### 5 7021-8, 47972-9 ####[facility] LABCLIA [id number] [place] [address] Reticulocytes (Bld) [#/Vol]o n 04-18-2024 Reticulocytes/100 RBC (Bld) 1.6 % Normal 0.4-2.0 [facility] Comment on above: Order Comment: Speci men Type: BLOOD SPECIMENOrdering Facility: [facility] Address: [address] [place] [address] Performed By: #### 5 7021-8, 41354-7 ####[facility] LABIA [id number] [place] [address] Vit B12 Ramakrishna-mary 024 Cobalamin (Vitamin B12) [Mass/Vol] 548 pg/mL Normal 232-1245 [facility] Comment on above: Order Comment: Speci men Type: BLOOD SPECIMENOrdering Facility: [facility] Address: [address] [place] [address] Performed By: #### 5 0190-8, 2132-9, 2284-8, 2276-4 ####[facility] LABCLIA [id number] [place] [id number] [place] MAMM SCREENING BILATERAL W 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 04-17-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 MAMM SCREENING BILATERAL W CAD MAMM SCREENING BILATERAL W CAD ANDREI FISH 1950 [id number] EXAM: MAMM SCREENING BILATERAL W CAD, 04/17/2024 [...] AM 1 c MAMM 1 YR Normal [facility] Momo 04-16-2024 L Specimen: Received: 04/19/24 Status: ANGEL Valente Num: [id number] Spec Type: Cytology Subm Dr: KYUNG Reece Tissues: A FNA SLIDES NOPATH (RT THYROID) Procedures: Cyto Int and Re, PAPSTN/5 Age/ Patient Sex Location Account Attending Physician Paul Fishalicia 73/F LABELL [id number] Simon Zuniga MD SPEC NUM: [id number] RECD: 04/19/24 STATUS: GUERLINEPatricia MOSESQ NUM: [id number] OMAR: 04/16/24- SUBM DR: KYUNG Reece ENTERED: 04/19/[address] [facility] [address]: Jocy,Lab Simon Zuniga MD SPEC TYPE: Cytology DEPT: [facility] ENTERED BY: [id number] RECV BY: [id number] ORDERED: Cyto Int and Re, PAPSTN/5 ORDERED: Cyto Int and Re, PAPSTN/5 Pathological Diagnosis Right thyroid nodule, fine needle aspiration (Smear and ThinPrep): - Satisfactory for evaluation. - Few sheets of benign-appearing follicular cells in a background of macrophages, watery co lloid and blood consistent with benign follicular nodule/nodular goiter ([place] Category: II). - Negative for malignant cells. [...] at -20 microscopic examination. (MG/nh) ---- Specimen: [id number] Received: 04/19/24 Status: ANGEL Mosesbrionna Num: [id number] Spec Type: Cytology Subm Dr: Stephanie Dumont, ZIGGYC Tissues: A FNA SLIDES NOPATH (RT THYROID) Procedures: Cyto Int and Re, PAPSTN/5 ---- Patient: AbePaulalicia [id number] (Continued) ---- Specimen: [id number] Received: 04/19/24 (Continued) Signed (signature on file) Nnamdi Woodall MD 04/30/24 1143 ---- Specimen: [id number] Received: 04/19/24 Status: ANGEL Valente Num: [id number] Spec Type: Cytology Subm Dr: Stephanie Dumont, [facility] Tissues: A FNA SLIDES NOPATH (RT THYROID) Procedures: Cyto Int and Re, PAPSTN/5 ---- Patient: Andrei Fish [id number] (Continued) ---- Specimen: [id number] Received: 04/19/24 (Continued) Microscopic Description Microscopic examination is performed. CPT Codes 44483, 83064 ---- ---- Specimen: [id number] Received: 04/19/24 Status: ANGEL Valente Num: [id number] Spec Type: Cytology Subm Dr: Stephanie Dumont, [facility] Tissues: A FNA SLIDES NOPATH (RT THYROID) Procedures: Cyto Int and Re, PAPSTN/5 ---- Patient: Andrei Fish [id number] (Continued) ---- Signed (signature on file) Nnamdi Woodall MD 04/30/24 1143 Normal [facility] CBC AND AUTO DIFFon 04-10-20 24 ABSOLUTE BASOPHIL 0.0 X10E9/L Normal 0.0-0.2 [facility] Comment on above: Performed By: #### 1 988-5, CBCA, 17554-7 #### [facility] ([id number]) [address], [address] [place] [address] ABSOLUTE NEUTROPHIL 2.7 X10E9/L Normal 1.5-6.6 [facility] Comment on above: Performed By: #### 1 988-5, CBCA, 01041-5 #### [facility] ([id number]) [address], [address] [place] [address] Basophils/100 WBC (Bld) 0.3 % Normal [facility] Comment on above: Performed By: #### 1 988-5, CBCA, 35416-1 #### [facility] ([id number]) [address], [address] [place] [address] Eosinophils (Bld) [#/Vol] 0.0 10*3/uL Normal 0.0-0.4 [facility] Comment on above: Performed By: #### 1 988-5, CBCA, 95363-2 #### [facility] ([id number]) [address], [facility] [address] [place] [address] Eosinophils/100 WBC (Bld) 0.9 % Normal [facility] Comment on above: Performed By: #### 1 988-5, CBCA, 47052-8 #### [facility] ([id number]) [address], [address] [place] [address] Erythrocyte distribution width (RBC) [Ratio] 15.9 % High 11.5-15.0 [facility] Comment on above: Performed By: #### 1 988-5, CBCA, 14255-0 #### [facility] ([id number]) [address] [address] [place] [address] Hematocrit (Bld) [Volume fraction] 34.3 % Low 35-47 [facility] Comment on above: Performed By: #### 1 988-5, CBCA, 22935-7 #### [facility] ([id number]) [address] [place] [address] Hemoglobin (Bld) [Mass/Vol] 11.3 g/dL Low 11.7-15.5 [facility] Comment on above: Performed By: #### 1 988-5, CBCA, 93642-0 #### [facility] ([id number]) [address] [place] [address] Lymphocytes (Bld) [#/Vol] 2.1 10*3/uL Normal 1.0-3.5 [facility] Comment on above: Performed By: #### 1 988-5, CBCA, 78106-5 #### [facility] ([id number]) [address], [facility] [address] [place] [address] Lymphocytes/100 WBC (Bld) 40.8 % Normal [facility] Comment on above: Performed By: #### 1 988-5, CBCA, 57872-9 #### [facility] ([id number]) [address], [facility] [address] [place] [address] MCH (RBC) [Entitic mass] 31.8 pg Normal 27-34 [facility] Comment on above: Performed By: #### 1 988-5, CBCA, 45930-0 #### [facility] ([id number]) [address], [facility] [address] [place] [address] MCHC (RBC) [Mass/Vol] 32.8 g/dL Normal 32-36 [facility] Comment on above: Performed By: #### 1 988-5, CBCA, 73342-8 #### [facility] ([id number]) [address], [facility] [address] [place] [address] MCV (RBC) [Entitic vol] 97 fL Normal 80-[address] [facility] Comment on above: Performed By: #### 1 988-5, CBCA, 53612-9 #### [facility] ([id number]) [address] [address] [place] [address] Monocytes (Bld) [#/Vol] 0.2 10*3/uL Normal 0-0.9 [facility] Comment on above: Performed By: #### 1 988-5, CBCA, 03962-0 #### [facility] ([id number]) [address] [place] [address] Monocytes/100 WBC (Bld) 3.9 % Normal P [facility] Comment on above: Performed By: #### 1 988-5, CBCA, 95963-3 #### [facility] ([id number]) [address] [place] [address] Neutrophils/100 WBC (Bld) 54.1 % Normal [facility] Comment on above: Performed By: #### 1 988-5, CBCA, 75414-6 #### [facility] ([id number]) [address] [place] [address] Platelet mean volume (Bld) [Entitic vol] 8.3 fL Normal 7-12 [facility] Comment on above: Performed By: #### 1 988-5, CBCA, 50016-1 #### [facility] ([id number]) [address] [place] [address] Platelets (Bld) [#/Vol] 208 10*3/uL Normal 150-450 [facility] Comment on above: Performed By: #### 1 988-5, CBCA, 10396-4 #### [facility] ([id number]) [address] [place] [address] RBC COUNT 3.54 X10E12/L Low 3.80-5.20 [facility] Comment on above: Performed By: #### 1 988-5, CBCA, 83473-2 #### [facility] ([id number]) [address], [address] [place] [address] WBC (Bld) [#/Vol] 5.1 10*3/uL Normal 4.0-11.0 [facility] Comment on above: Performed By: #### 1 988-5, CBCA, 70693-5 #### [facility] ([id number]) [address] [place] [address] CRP [Mass/Vol]on 04-10-2024 C REACTIVE PROTEIN 1.2 mg/dL High 0.000-0.744 [facility] Comment on above: Performed By: #### 1 988-5, CBCA, 77294-7 #### [facility] ([id number]) [address] [place] [address] ESR Photometric method (Bld) [Velocity]on 04-10-2024 ESR, ERYTHROCYTE SEDIMENTATION RATE 21 mm/h Normal 0-30 [facility] Comment on above: Performed By: #### 1 988-5, CBCA, 40256-7 #### [facility] ([id number]) [address] [place] [address] HGB A1C (GLYCO-HGB)on 2023 Glucose [Mass/Vol] 134 mg/dL Normal [facility] Comment on above: Performed By: #### H A1C, THYR #### [facility] ([id number]) [address], [facility] [address] [place] [address] HbA1c (Bld) [Mass fraction] 6.3 % High 4.4-5.6 [facility] Comment on above: Result Comment: NOTE ADA Guidelines Result HgbA1c Normal : less than 5.7 % Prediabetes : 5.7 % to 6.4 % Diabetes : > 6.4 % Use with caution in patients with abnormal hemoglobin variants as the half-life of red blood cells and in vivo glycation rates are affected. Performed By: #### H A1C, THYR #### [facility] ([id number]) [address] [place] [address] MICROALBUMIN - ALBUMIN:CREAT ININE URINE RATIOon 04-04-2024 ALB/CREAT RATIO 14.4 mg/g creat Normal 0.0-30.0 [facility] Comment on above: Performed By: #### RED Delgado #### [facility] ([id number]) [address] [place] [address] Albumin DL <= 20 mg/L (U) [Mass/Vol] 1.6 mg/dL Normal 0.0-1.9 [facility] Comment on above: Performed By: #### RED Delgado #### [facility] ([id number]) [address] [facility], [address] [place] [address] URINE CREAT 111.21 mg/dL Normal [facility] Comment on above: Performed By: #### RED Delgado #### [facility] ([id number]) [address] [place] [address] THYROID PROFILEon 04-04-2024 Free T4 [Mass/Vol] 0.80 ng/dL Normal 0.61-1.60 [facility] Comment on above: Performed By: #### H A1C, THYR #### [facility] ([id number]) [address] [place] [address] TSH 0.29 uIU/mL Low 0.49-4.67 [facility] Comment on above: Performed By: #### H A1C, THYR #### [facility] ([id number]) [address] [place] [address] URINALYSISon 04-04-2024 Bilirubin Ql (U) Negative Normal NEG [facility] Comment on above: Performed By: #### RED Delgado #### [facility] ([id number]) [address] [place] [address] BLOOD/HGB Negative Normal NEG [facility] Comment on above: Performed By: #### RED Delgado #### [facility] ([id number]) [address] [place] [address] Color (U) YELLOW Normal YELLOW [facility] Comment on above: Performed By: #### Lara Sheikh, VIRGINIAPHYLLIS #### [facility] ([id number]) [address] [place] [address] Glucose Ql (U) Negative Normal NEG [facility] Comment on above: Performed By: #### Lara Sheikh, VIRGINIAPHYLLIS #### [facility] ([id number]) [address] [place] [address] Ketones Ql (U) Negative Normal NEG [facility] Comment on above: Performed By: #### Lara Sheikh, RED #### [facility] ([id number]) [address] [place] [address] Leukocyte esterase Test strip Ql (U) Negative Normal NEG [facility] Comment on above: Performed By: #### RED Delgado #### [facility] ([id number]) [address] [place] [address] MUCOUS PRESENT Abnormal NONE [facility] Comment on above: Performed By: #### RED Delgado #### [facility] ([id number]) [address] [place] [address] Nitrite Ql (U) Negative Normal NEG [facility] Comment on above: Performed By: #### RED Delgado #### [facility] ([id number]) [address] [place] [address] pH (U) 6.0 [pH] Normal 5.0-8.5 [facility] Comment on above: Performed By: #### Lara Sheikh, RED #### [facility] ([id number]) [address] [place] [address] Protein Ql (U) Trace Abnormal NEG [facility] Comment on above: Performed By: #### Lara Sheikh, VIRGINIAPHYLLIS #### [facility] ([id number]) [address] [place] [address] R.B.CELLS 1 /hpf Normal 0-5 [facility] Comment on above: Performed By: #### Lara Sheikh, VIRGINIAPHYLLIS #### [facility] ([id number]) [address] [place] [address] Specific gravity (U) [Rel density] 1.017 Normal 1.003-1.035 [facility] Comment on above: Performed By: #### Lara Sheikh, VIRGINIAPHYLLIS #### [facility] ([id number]) [address] [place] [address] SQUAMOUS EPITHELIUM 6 /hpf High 0-5 [facility] Comment on above: Performed By: #### Lara Sheikh, RED #### [facility] ([id number]) [address] [place] [address] TURBIDITY CLEAR Normal CLEAR [facility] Comment on above: Performed By: #### Lara Sheikh, MALPHYLLIS #### [facility] ([id number]) [address] [place] [address] Urobilinogen (U) [Mass/Vol] mg/dL Normal <1.1 [facility] Comment on above: Performed By: #### Lara Sheikh, MALPHYLLIS #### [facility] ([id number]) [address] [place] [address] W.B.CELLS 2 /hpf Normal 0-5 [facility] Comment on above: Performed By: #### Lara Sheikh, MALPHYLLIS #### [facility] ([id number]) [address] [place] [address] Urinalysis, manual onlyon Bilirubin Ql (U) Negative Negative [facility]U) [facility]LLOW [facility] Epithelial cells Auto (Urine sed) [#/Area] 6 High [facility] Glucose (U) [Mass/Vol] Negative Negat david mg/dL [facility] Hemoglobin Auto test strip Ql (U) Negative Negative [facility] Interpretation and review of laboratory results Abnormal [facility] Ketones (U) [Mass/Vol] Negative Negat david mg/dL [facility] Leukocyte esterase Auto test strip Ql (U) Negative Negative [facility] Mucus Ql (Urine sed) PRESENT Abnormal NONE [facility] Nitrite Auto test strip Ql (U) Negative Negative [facility] pH (U) 6.0 [pH] 5.0 - 8.5 [facility] Protein (U) [Mass/Vol] Trace Abnormal Negat david mg/dL [facility] RBC Auto (Urine sed) [#/Area] 1 [facility] Specific gravity Refractometry automated (U) [Rel density] 1.017 1.003 - 1.035 [facility] Turbidity Ql (U) CLEAR CLEAR [facility] Urobilinogen Qn (U) <1.1 NINF [facility] WBC Auto (Urine sed) [#/Area] 2 [facility] Comment on above: PERFORMED AT [facility] [address],[place] [address] [facility] [address] Internal auditory canal W O [...] Tiffani Villagomez 11/14/2023 3:18 PM Dictation workstation: [id number] Interpreted By: Tiffani Mills, STUDY: CT IAC WO IV CONTRAST; 11/14/2023 3:03 pm INDICATION: Signs/Symptoms:cholest eatoma. COMPARISON: None. ACCESSION NUMBER(S): [id number] ORDERING CLINICIAN: SUSANNA GRAF TECHNIQUE: Noncontrast CT [...] INDICATION: Signs/Symptoms:cholest eatoma. COMPARISON: None. ACCESSION NUMBER(S): [id number] ORDERING CLINICIAN: SUSANNA GRAF TECHNIQUE: Noncontrast CT [...] Tiffani Villagomez 11/14/2023 3:18 PM Dictation workstation: [id number] [facility] Work Phone: Radiology Study observation (narrative) [facility] Work Phone: CT Internal auditory canal W O contrastOrdered By: Tiffani Villagomez on 11-14-2023 [facility] Work Phone: Auditory function testson Right Ear: Mild sensorineural hearing loss from 250 Hz - 500 Hz. 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 Severe mixed hearing loss above 3K Hz [facility] Dipstick [employer] Microscopicon Dipstick & Microscopic No [employer] Other Dipstick and Microsc[employer] 1 08-29-2022 Appearance (U) Clear Normal Clear [facility] Comment on above: Order Comment: Reaso n for Exam HTN (hypertension);Lupus;Chronic ITP (idiopathic thrombocyto Name Collection Type:: Clean-Voided Midstream Performed By: #### A DDONUAPLUS #### [facility] [address] [place] [address] [place] Bacteria,Urine None Seen Normal None Seen [facility] Comment on above: Order Comment: Reaso n for Exam HTN (hypertension);Lupus;Chronic ITP (idiopathic thrombocyto Name Collection Type:: Clean-Voided Midstream Performed By: #### A DDONUAPLUS #### [facility] [address] [place] [id number] [place] Bilirubin,Urine Negative Normal Negative [facility] Comment on above: Order Comment: Reaso n for Exam HTN (hypertension);Lupus;Chronic ITP (idiopathic thrombocyto Name Collection Type:: Clean-Voided Midstream Performed By: #### A DDONUAPLUS #### [facility] [address] [place] [id number] [place] Color (U) Yellow Normal Yellow [facility] Comment on above: Order Comment: Reaso n for Exam HTN (hypertension);Lupus;Chronic ITP (idiopathic thrombocyto Name Collection Type:: Clean-Voided Midstream Performed By: #### A DDONUAPLUS #### [address] Glucose Ql (U) Normal Normal Normal [facility] Comment on above: Order Comment: Reaso n for Exam HTN (hypertension);Lupus;Chronic ITP (idiopathic thrombocyto Name Collection Type:: Clean-Voided Midstream Performed By: #### A DDONUAPLUS #### [place] [address] [place] Hyaline Casts,Urine 0-8 Normal 0-8 [facility] Comment on above: Order Comment: Reaso n for Exam HTN (hypertension);Lupus;Chronic ITP (idiopathic thrombocyto Name Collection Type:: Clean-Voided Midstream Result Comment: PERF ORMED BY: [place] [address] PATHOLOGIST IMPROVEMENT LEADER IVORY BORRERO M.D. Performed By: #### A DDONUAPLUS #### [address] Ketones Ql (U) Negative Normal Negative [facility] Comment on above: Order Comment: Reaso n for Exam HTN (hypertension);Lupus;Chronic ITP (idiopathic thrombocyto Name Collection Type:: Clean-Voided Midstream Performed By: #### A DDONUAPLUS #### [address] Leukocyte esterase Test strip Ql (U) Negative Normal Negative [facility] Comment on above: Order Comment: Reaso n for Exam HTN (hypertension);Lupus;Chronic ITP (idiopathic thrombocyto Name Collection Type:: Clean-Voided Midstream Performed By: #### A DDONUAPLUS #### [place] [address] [place] Nitrite,Urine Negative Normal Negative [facility] Comment on above: Order Comment: Reaso n for Exam HTN (hypertension);Lupus;Chronic ITP (idiopathic thrombocyto Name Collection Type:: Clean-Voided Midstream Performed By: #### A DDONUAPLUS #### [place] [address] [place] Occult Blood,Urine Negative Normal Negative [facility] Comment on above: Order Comment: Reaso n for Exam HTN (hypertension);Lupus;Chronic ITP (idiopathic thrombocyto Name Collection Type:: Clean-Voided Midstream Performed By: #### A DDONUAPLUS #### [place] [id number] [place] pH (U) 5.5 [pH] Normal 5.0-9.0 [facility] Comment on above: Order Comment: Reaso n for Exam HTN (hypertension);Lupus;Chronic ITP (idiopathic thrombocyto Name Collection Type:: Clean-Voided Midstream Performed By: #### A DDONUAPLUS #### [place] [address] [place] Protein,Urine Negative Normal Negative [facility] Comment on above: Order Comment: Reaso n for Exam HTN (hypertension);Lupus;Chronic ITP (idiopathic thrombocyto Name Collection Type:: Clean-Voided Midstream Performed By: #### A DDONUAPLUS #### [place] [address] [place] RBC,Urine 3-4 Normal 0-4 [facility] Comment on above: Order Comment: Reaso n for Exam HTN (hypertension);Lupus;Chronic ITP (idiopathic thrombocyto Name Collection Type:: Clean-Voided Midstream Performed By: #### A DDONUAPLUS #### [place] [address] [place] Specificy [place],Urine 1.019 Normal 1.001-1.030 [facility] Comment on above: Order Comment: Reaso n for Exam HTN (hypertension);Lupus;Chronic ITP (idiopathic thrombocyto Name Collection Type:: Clean-Voided Midstream Performed By: #### A DDONUAPLUS #### [place] [address] [place] Squamous Epithelial Cell,Urine 3-4 High 0-2 [facility] Comment on above: Order Comment: Reaso n for Exam HTN (hypertension);Lupus;Chronic ITP (idiopathic thrombocyto Name Collection Type:: Clean-Voided Midstream Performed By: #### A DDONUAPLUS #### [facility] [address] Urobilinogen,Urine Normal Normal Normal [facility] Comment on above: Order Comment: Reaso n for Exam HTN (hypertension);Lupus;Chronic ITP (idiopathic thrombocyto Name Collection Type:: Clean-Voided Midstream Performed By: #### A DDONUAPLUS #### [facility] [address] WBC LM.HPF (Urine sed) [#/Area] 0 /[HPF] Normal 0-4 [facility] Comment on above: Order Comment: Reaso n for Exam HTN (hypertension);Lupus;Chronic ITP (idiopathic thrombocyto Name Collection Type:: Clean-Voided Midstream Performed By: #### A DDONUAPLUS #### [facility] [address] Ferritinon 06-28-2023 Ferritin [Mass/Vol] 51.8924886 ng/mL Normal 11.0 -306.8 ng/mL [employer] Other Ferritin [Mass/Vol] 51.6 ng/mL Normal 11.0-306.8 [facility] Comment on above: Order Comment: Reaso n for Exam HTN (hypertension);Lupus;Chronic ITP (idiopathic thrombocyto Performed By: #### F ER, PROCRERAT, PTH, URIC, CBCNO, RENAL, MG, [id number] #### [facility] [address] [address] Hemogram CBC Without Diffon 06-28-2023 Erythrocyte distribution width (RBC) [Ratio] 15.200 % Normal 11.9-15.3 % [employer] Other Hematocrit (Bld) [Volume fraction] 32.300 % Low 34.0-46.4 % [employer] Other Hemoglobin (Bld) [Mass/Vol] 10.352958 g/dL Low 11.8-15.4 g/dL [employer] Other MCH (RBC) [Entitic mass] 31.8000 pg Normal 24.7-34.3 pg [employer] Other MCV (RBC) [Entitic vol] 96.6000 fL Normal 80-100 fL N [employer] Other Platelet mean volume (Bld) [Entitic vol] 8.3000 fL Normal 6.3-10.7 fL [employer] Other WBC (Bld) [#/Vol] 4.185734525 10*3/uL Normal 3.8 -11.6 10*3/uL [employer] Other Hemogram CBC Without Diff 32.9 g/dL Normal 32.0-35.0 g/dL [employer] Other Erythrocyte distribution width (RBC) [Ratio] 15.2 % Normal 11.9-15.3 [facility] Comment on above: Order Comment: Reaso n for Exam HTN (hypertension);Lupus;Chronic ITP (idiopathic thrombocyto Performed By: #### F ER, PROCRERAT, PTH, URIC, CBCNO, RENAL, MG, [id number] #### [facility] [address] Hematocrit (Bld) [Volume fraction] 32.3 % Low 34.0-46.4 [facility] Comment on above: Order Comment: Reaso n for Exam HTN (hypertension);Lupus;Chronic ITP (idiopathic thrombocyto Performed By: #### F ER, PROCRERAT, PTH, URIC, CBCNO, RENAL, MG, [id number] #### [facility] [address] Hemoglobin (Bld) [Mass/Vol] 10.6 g/dL Low 11.8-15.4 [facility] Comment on above: Order Comment: Reaso n for Exam HTN (hypertension);Lupus;Chronic ITP (idiopathic thrombocyto Performed By: #### F ER, PROCRERAT, PTH, URIC, CBCNO, RENAL, MG, [id number] #### [facility] [address] [place] [id number] [facility] MCH (RBC) [Entitic mass] 31.8 pg Normal 24.7-34.3 [facility] Comment on above: Order Comment: Reaso n for Exam HTN (hypertension);Lupus;Chronic ITP (idiopathic thrombocyto Performed By: #### F ER, PROCRERAT, PTH, URIC, CBCNO, RENAL, MG, [id number] #### [facility] [address] [place] [id number] [facility] MCV (RBC) [Entitic vol] 96.6 fL Normal 80-100 [facility] Comment on above: Order Comment: Reaso n for Exam HTN (hypertension);Lupus;Chronic ITP (idiopathic thrombocyto Performed By: #### F ER, PROCRERAT, PTH, URIC, CBCNO, RENAL, MG, [id number] #### [facility] [address] Mean Corpuscular HGB Conc 32.9 g/dL Normal 32.0-35.0 [facility] Comment on above: Order Comment: Reaso n for Exam HTN (hypertension);Lupus;Chronic ITP (idiopathic thrombocyto Performed By: #### F ER, PROCRERAT, PTH, URIC, CBCNO, RENAL, MG, [id number] #### [facility] [address] Platelet mean volume (Bld) [Entitic vol] 8.3 fL Normal 6.3-10.7 The [facility] Comment on above: Order Comment: Reaso n for Exam HTN (hypertension);Lupus;Chronic ITP (idiopathic thrombocyto Result Comment: PERF ORMED BY: [place] [address] PATHOLOGIST IMPROVEMENT LEADER IVORY BORRERO M.D. Performed By: #### F ER, PROCRERAT, PTH, URIC, CBCNO, RENAL, MG, [id number] #### [facility] [address] Platelets (Bld) [#/Vol] 161 10*3/uL Normal 150-450 [employer] Other Comment on above: Order Comment: Reaso n for Exam HTN (hypertension);Lupus;Chronic ITP (idiopathic thrombocyto Performed By: #### F ER, PROCRERAT, PTH, URIC, CBCNO, RENAL, MG, [id number] #### [facility] [address] [place] [address] [facility] RBC (Bld) [#/Vol] 3.34 10*6/uL Low 3.60-5.00 [employer] Other Comment on above: Order Comment: Reaso n for Exam HTN (hypertension);Lupus;Chronic ITP (idiopathic thrombocyto Performed By: #### F ER, PROCRERAT, PTH, URIC, CBCNO, RENAL, MG, [id number] #### [facility] [address] [place] [address] [facility] WBC (Bld) [#/Vol] 4.7 10*3/uL Normal 3.8-11.6 [facility] Comment on above: Order Comment: Reaso n for Exam HTN (hypertension);Lupus;Chronic ITP (idiopathic thrombocyto Performed By: #### F ER, PROCRERAT, PTH, URIC, CBCNO, RENAL, MG, [id number] #### [facility] [address] [place] [address] [facility] Magnesiumon 06-28-2023 Magnesium [Mass/Vol] 2.3073243 mg/dL Normal 1.9- 2.7 mg/dL [employer] Other Magnesium [Mass/Vol] 2.5 mg/dL Normal 1.9-2.7 [facility] Comment on above: Order Comment: Reaso n for Exam HTN (hypertension);Lupus;Chronic ITP (idiopathic thrombocyto Performed By: #### F ER, PROCRERAT, PTH, URIC, CBCNO, RENAL, MG, [id number] #### [facility] [address] [place] [address] [facility] Parathyroid Hormone Intacton 06-28-2023 Parathyroid Hormone Intact 41.9 pg/mL Normal 12-88 pg/mL [employer] Other Parathyroid Hormone Intact 41.9 pg/mL Normal 12-88 [facility] Comment on above: Order Comment: Reaso n for Exam HTN (hypertension);Lupus;Chronic ITP (idiopathic thrombocyto Result Comment: PERF ORMED BY: [place] [address] PATHOLOGIST IMPROVEMENT LEADER IVORY BORRERO M.D. Performed By: #### F ER, PROCRERAT, PTH, URIC, CBCNO, RENAL, MG, [id number] #### [facility] [address] [place] [address] [place] Protein Creat Ratio Ur Rando mon 06-28-2023 Albumin Test strip detection limit <= 20 mg/L (U) [Mass/Vol] 9 mg/dL Normal 0-9 mg/dL [employer] Other Protein Creat Ratio Ur Random 96.0 mg/dL High 11.0-20.0 mg/dL [employer] Other Protein Creat Ratio Ur Random 94 mg/g{Cre} Normal 0-200 mg/g{Cre} [employer] Other Creatinine, Urine (Random) 96.0 mg/dL High 11.0-20.0 [facility] Comment on above: Order Comment: Reaso n for Exam HTN (hypertension);Lupus;Chronic ITP (idiopathic thrombocyto Performed By: #### F ER, PROCRERAT, PTH, URIC, CBCNO, RENAL, MG, [id number] #### [facility] [address] [place] [address] [place] Protein (U) [Mass/Vol] 9 mg/dL Normal 0-9 Th e [facility] Comment on above: Order Comment: Reaso n for Exam HTN (hypertension);Lupus;Chronic ITP (idiopathic thrombocyto Performed By: #### F ER, PROCRERAT, PTH, URIC, CBCNO, RENAL, MG, [id number] #### [facility] [address] [place] [address] [place] Urine Protein/Creatinine Ratio 94 mg/g{Cre} Normal 0-200 [facility] Comment on above: Order Comment: Reaso n for Exam HTN (hypertension);Lupus;Chronic ITP (idiopathic thrombocyto Result Comment: PERF ORMED BY: [address] [place] [address] PATHOLOGIST IMPROVEMENT LEADER IVORY BORRERO M.D. Performed By: #### F ER, PROCRERAT, PTH, URIC, CBCNO, RENAL, MG, [id number] #### [facility] [address] [place] [id number] [facility] Renal Function Panelon 06-28 Albumin [Mass/Vol] 3.149802 g/dL Normal 3.5-5.7 g/dL [facility] [employer] Other Calcium [Mass/Vol] 9.5337776 mg/dL Normal 8.6-10 .3 mg/dL [employer] Other CO2 [Moles/Vol] 26.93382587 mmol/L Normal 21.0-3 1.0 mmol/L [employer] Other Creatinine [Mass/Vol] 1.73573589 mg/dL Normal 0. 60-1.20 mg/dL [employer] Other Phosphate [Mass/Vol] 3.6889961 mg/dL Normal 2.5- 4.5 mg/dL [employer] Other Potassium [Moles/Vol] 4.34139344 mmol/L Normal 3 .5-5.1 mmol/L [employer] Other Albumin [Mass/Vol] 3.7 g/dL Normal 3.5-5.7 [facility] Comment on above: Order Comment: Reaso n for Exam HTN (hypertension);Lupus;Chronic ITP (idiopathic thrombocyto Performed By: #### F ER, PROCRERAT, PTH, URIC, CBCNO, RENAL, MG, [id number] #### [facility] [address] [place] [id number] [facility] Anion gap [Moles/Vol] 10.5 mmol/L Normal 6.0-15.0 [facility] Comment on above: Order Comment: Reaso n for Exam HTN (hypertension);Lupus;Chronic ITP (idiopathic thrombocyto Performed By: #### F ER, PROCRERAT, PTH, URIC, CBCNO, RENAL, MG, [id number] #### [facility] [address] [place] [address] [facility] Calcium [Mass/Vol] 9.2 mg/dL Normal 8.6-10.3 [facility] Comment on above: Order Comment: Reaso n for Exam HTN (hypertension);Lupus;Chronic ITP (idiopathic thrombocyto Performed By: #### F ER, PROCRERAT, PTH, URIC, CBCNO, RENAL, MG, [id number] #### [facility] [address] [place] [id number] [facility] Chloride [Moles/Vol] 108 mmol/L High 98-107 [facility] [employer] Other Comment on above: Order Comment: Reaso n for Exam HTN (hypertension);Lupus;Chronic ITP (idiopathic thrombocyto Performed By: #### F ER, PROCRERAT, PTH, URIC, CBCNO, RENAL, MG, [id number] #### [facility] [address] [place] [phone] [facility] CO2 [Moles/Vol] 26.1 mmol/L Normal 21.0-31.0 The [facility] Comment on above: Order Comment: Reaso n for Exam HTN (hypertension);Lupus;Chronic ITP (idiopathic thrombocyto Performed By: #### F ER, PROCRERAT, PTH, URIC, CBCNO, RENAL, MG, [id number] #### [facility] [address] [place] [address] [facility] Creatinine [Mass/Vol] 1.13 mg/dL Normal 0.60-1.20 [facility] Comment on above: Order Comment: Reaso n for Exam HTN (hypertension);Lupus;Chronic ITP (idiopathic thrombocyto Performed By: #### F ER, PROCRERAT, PTH, URIC, CBCNO, RENAL, MG, [id number] #### [facility] [address] [place] [address] [place] GFR/1.73 sq M.predicted MDRD (S/P/Bld) [Vol rate/Area] 51.692 mL/min/{1.73_m2} Normal [employer] Other Comment on above: Order Comment: Reaso n for Exam HTN (hypertension);Lupus;Chronic ITP (idiopathic thrombocyto Performed By: #### F ER, PROCRERAT, PTH, URIC, CBCNO, RENAL, MG, [id number] #### [facility] [address] [place] [phone] [facility] Glucose [Mass/Vol] 116 mg/dL High 70-100 [employer] Other Comment on above: Order Comment: Reaso n for Exam HTN (hypertension);Lupus;Chronic ITP (idiopathic thrombocyto Result Comment: [facility] Glucose Reference Range is dependent on time and content of last meal. Glucose of more than 200 mg/dL in a nonstressed, ambulatory subject supports the diagnosis of Diabetes Mellitus. ADA recommended reference range Performed By: #### F ER, PROCRERAT, PTH, URIC, CBCNO, RENAL, MG, [id number] #### [facility] [address] [place] [id number] [place] Phosphate [Mass/Vol] 3.1 mg/dL Normal 2.5-4.5 [facility] Comment on above: Order Comment: Reaso n for Exam HTN (hypertension);Lupus;Chronic ITP (idiopathic thrombocyto Performed By: #### F ER, PROCRERAT, PTH, URIC, CBCNO, RENAL, MG, [id number] #### [facility] [address] [place] [phone] [facility] Potassium [Moles/Vol] 4.6 mmol/L Normal 3.5-5.1 [facility] Comment on above: Order Comment: Reaso n for Exam HTN (hypertension);Lupus;Chronic ITP (idiopathic thrombocyto Performed By: #### F ER, PROCRERAT, PTH, URIC, CBCNO, RENAL, MG, [id number] #### [facility] [address] [place] [address] [place] Sodium [Moles/Vol] 140 mmol/L Normal 136-145 [employer] Other Comment on above: Order Comment: Reaso n for Exam HTN (hypertension);Lupus;Chronic ITP (idiopathic thrombocyto Performed By: #### F ER, PROCRERAT, PTH, URIC, CBCNO, RENAL, MG, [id number] #### [facility] [address] [place] [address] [place] Urea nitrogen [Mass/Vol] 39 mg/dL High 7-25 [employer] Other Comment on above: Order Comment: Reaso n for Exam HTN (hypertension);Lupus;Chronic ITP (idiopathic thrombocyto Performed By: #### F ER, PROCRERAT, PTH, URIC, CBCNO, RENAL, MG, [id number] #### [facility] [address] [place] [address] [facility] Uric Acidon 06-28-2023 Urate [Mass/Vol] 6.4451461 mg/dL High 2.3-6.6 mg/dL [employer] Other Urate [Mass/Vol] 6.8 mg/dL High 2.3-6.6 [facility] Comment on above: Order Comment: Reaso n for Exam HTN (hypertension);Lupus;Chronic ITP (idiopathic thrombocyto Performed By: #### F ER, PROCRERAT, PTH, URIC, CBCNO, RENAL, MG, [id number] #### [facility] [address] [place] [address] [facility] Vitamin D 25 Hydroxy Totalon 06-28-2023 Vitamin D 25 Hydroxy Total 11.8 ng/mL Low 30-100 ng/mL [employer] Other Vitamin D 25 Hydroxy Total 11.8 ng/mL Low 30-100 [facility] Comment on above: Order Comment: Reaso n for Exam HTN (hypertension);Lupus;Chronic ITP (idiopathic thrombocyto Result Comment: JENNIFER MIN D STATUS 25(OH)VITAMIN D RANGE (ng/mL) Deficient <20 Insufficient 20 to <30 Sufficient 30 to 100 Reference: Sunita MF,Adarsh NC, Ranulfo VELAZQUEZ, et al. Evaluation,treatment, and prevention of vitamin D deficiency; an Endocrine Society clinical practice guideline. JCEM. 2010; 96(7):1911-30. PERFORMED BY: [place] [id number] PATHOLOGIST IMPROVEMENT LEADER IVORY BORRERO M.D. Performed By: #### F ER, PROCRERAT, PTH, URIC, CBCNO, RENAL, MG, [id number] #### [facility] [address] Albumin [Mass/volume] in Ser um or PlasmaOrdered By: Gilson Arriola on 08-29-2022 Albumin [Mass/Vol] 3.2 g/dL 3.2-5.5 [facility] [place] Automated erythrocytes count in urine sediment (number/area)Ordered By: Gilson Arriola on 08-29-2022 RBC Auto (Urine sed) [#/Area] 1-2 [HPF] 0-4 [facility] Automated leukocytes count i n urine sediment (number/area)Ordered By: Gilson Arriola on 08-29-2022 WBC Auto (Urine sed) [#/Area] 0-1 [HPF] 0-4 [facility] Bilirubin Test strip Ql (U)O rdered By: Gilson Arriola on 08-29-2022 Bilirubin Ql (U) Negative Negative [facility] Color Auto (U)Ordered By: Ab christiano Arriola on 08-29-2022 Color (U) Yellow Yellow [facility] Creatinine [Mass/volume] in UrineOrdered By: Gilson Arriola on 08-29-2022 Creatinine (U) [Mass/Vol] 94.2 mg/dL [facility] Comment on above: No reference range e stablished Creatinine and Glomerular fi ltration rate.predicted panel (S/P/Bld)Ordered By: Gilson Arriola on 08-29-2022 Creatinine [Mass/Vol] 0.80 mg/dL 0.44-1.03 [facility] Erythrocyte distribution wid th Auto (RBC) [Ratio]Ordered By: Gilson Arriola on 08-29-2022 Erythrocyte distribution width (RBC) [Ratio] 14.9 % 11.9-15.3 [facility] Estimated glomerular filtrat ion rate (GFR) non- AmericanOrdered By: Gilson Arriola on 08-29-2022 GFR/1.73 sq M.predicted among non-blacks MDRD (S/P/Bld) [Vol rate/Area] > 60 mL/Min [facility] Hematocrit Auto (Bld) [Volum e fraction]Ordered By: Gilson Arriola on 08-29-2022 Hematocrit (Bld) [Volume fraction] 34.9 % 34.0-46.4 [facility] Hemoglobin [Mass/volume] in BloodOrdered By: Gilson Arriola on 08-29-2022 Hemoglobin (Bld) [Mass/Vol] 11.2 g/dL 11.8-15.4 [facility] Ketones Auto test strip (U) [Mass/Vol]Ordered By: Gilson Arriola on 08-29-2022 Ketones (U) [Mass/Vol] Negative Negative [facility] Laboratory - Chemistry and C hemistry - challengeOrdered By: Gilson Arriola on 08-29-2022 Magnesium [Mass/Vol] 2.1 mg/dL 1.6-2.6 [facility] Laboratory - UrinalysisOrder ed By: Gilson Arriola on 08-29-2022 Hyaline casts LM Ql (Urine sed) 0-8 [LPF] 0-8 [facility] Leukocytes [#/volume] correc austin for nucleated erythrocytes in Blood by Automated counOrdered By: Gilson Arriola on 08-29-2022 WBC corrected for nucl RBC Auto (Bld) [#/Vol] 4.3 10*3/uL 3.8-11.6 [facility] MCH Auto (RBC) [Entitic mass ]Ordered By: Gilson Arriola on 08-29-2022 MCH (RBC) [Entitic mass] 29.5 pg 24.7-34.3 [facility] MCHC Auto (RBC) [Mass/Vol]Or dered By: Gilson Arriola on 08-29-2022 MCHC (RBC) [Mass/Vol] 32.1 g/dL 32.0-35.0 [facility] MCV Auto (RBC) [Entitic vol] Ordered By: Gilson Arriola on 08-29-2022 MCV (RBC) [Entitic vol] 92.0 fL 80-100 [facility] Nitrite Test strip Ql (U)Ord ered By: Gilson Arriola on 08-29-2022 Nitrite Ql (U) Negative Negative [facility] No Panel InformationOrdered By: Gilson Arriola on 08-29-2022 Estimated GFR () > 60 mL/Min [facility] Comment on above: GFR estimated refere nce range: According to KDOQI guidelines, <60 ml/min/1.73m2 is sufficient to diagnose a patient with chronic kidney disease. Pharmacy Creatinine Clearance (Chem N/A [facility] Phosphate [Mass/volume] in S henok or PlasmaOrdered By: Gilson Arriola on 08-29-2022 Phosphate [Mass/Vol] 3.1 mg/dL 2.5-4.6 [facility] Platelet mean volume Auto (B ld) [Entitic vol]Ordered By: Gilson Arriola on 08-29-2022 Platelet mean volume (Bld) [Entitic vol] 8.4 fL 6.3-10.7 [facility] Platelets Auto (Bld) [#/Vol] Ordered By: Gilson Arriola on 08-29-2022 Platelets (Bld) [#/Vol] 124 10*3/uL 150-450 [facility] Protein Auto test strip (U) [Mass/Vol]Ordered By: Gilson Arriola on 08-29-2022 Protein (U) [Mass/Vol] Negative Negative [facility] Protein [Mass/volume] in Uri neOrdered By: Gilson Arriola on 08-29-2022 Protein (U) [Mass/Vol] 9 mg/dL 0-9 [facility] RBC Auto (Bld) [#/Vol]Ordere d By: Gilson Arriola on 08-29-2022 RBC (Bld) [#/Vol] 3.79 10*6/uL 3.60-5.00 [facility] Serum or plasma anion gap de terminationOrdered By: Gilson Arriola on 08-29-2022 Anion gap [Moles/Vol] 10.9 mmol/L 6.0-15.0 [facility] Serum or plasma calcium ramya urement (mass/volume)Ordered By: Gilson Arriola on 08-29-2022 Calcium [Mass/Vol] 8.8 mg/dL 8.2-10.2 [facility] [place] Serum or plasma chloride brandy surement (moles/volume)Ordered By: Gilson Arriola on 08-29-2022 Chloride [Moles/Vol] 99 mmol/L 95-114 [facility] Serum or plasma glucose ramya urement (mass/volume)Ordered By: Gilson Arriola on 08-29-2022 Glucose [Mass/Vol] 89 mg/dL 70-100 [facility] [place] Comment on above: ADA recommended refe rence rangeRandom Glucose Reference Range is dependent on time and content of last meal. Glucose of more than 200 mg/dL in a nonstressed, ambulatory subject supports the diagnosis of Diabetes Mellitus. Serum or plasma potassium me asurement (moles/volume)Ordered By: Gilson Arriola on 08-29-2022 Potassium [Moles/Vol] 3.9 mmol/L 3.5-5.1 [facility] Serum or plasma sodium measu rement (moles/volume)Ordered By: Gilson Arriola on 08-29-2022 Sodium [Moles/Vol] 134 mmol/L 136-146 [facility] [place] Serum or plasma total carbon dioxide measurement (moles/volume)Ordered By: Gilson Arriola on 08-29-2022 CO2 [Moles/Vol] 28.0 mmol/L 22.0-30.0 [facility] Serum or plasma urea nitroge n measurement (mass/volume)Ordered By: Gilson Arriola on 08-29-2022 Urea nitrogen [Mass/Vol] 19 mg/dL 9-23 [facility] Specific gravity Auto test s trip (U) [Rel density]Ordered By: Gilson Arriola on 08-29-2022 Specific gravity (U) [Rel density] 1.015 1.001-1.030 [facility] Squamous epithelial cells de tection in urine sediment by light microscopyOrdered By: Gilson Arriola on 08-29-2022 Epithelial cells.squamous LM Ql (Urine sed) 3-4 [HPF] 0-2 [facility] Urine bacteria detection by automated methodOrdered By: Gilson Arriola on 08-29-2022 Bacteria Auto Ql (U) None seen None Seen [facility] Urine clarity by refractomet ry automatedOrdered By: Gilson Arriola on 08-29-2022 Clarity Refractometry automated (U) Clear Clear [facility] Urine glucose measurement by automated test strip (mass/volume)Ordered By: Gilson Arriola on 08-29-2022 Glucose Auto test strip (U) [Mass/Vol] Normal mg/dL Normal [facility] Urine hemoglobin detection b y automated test stripOrdered By: Gilson Arriola on 08-29-2022 Hemoglobin Auto test strip Ql (U) Negative Negative [facility] Urine leukocyte esterase det ection by automated test stripOrdered By: Gilson Arriola on 08-29-2022 Leukocyte esterase Auto test strip Ql (U) Negative Negative [facility] Urine protein/creatinine rat ioOrdered By: Gilson Arriola on 08-29-2022 Protein/Creatinine (U) [Ratio] 96 mg/g{Cre} 0-200 [facility] Urobilinogen Auto test strip (U) [Mass/Vol]Ordered By: Gilson Arriola on 08-29-2022 Urobilinogen (U) [Mass/Vol] Normal mg/dL Normal [facility] pH Auto test strip (U)Ordere d By: Gilson Arriola on 08-29-2022 pH (U) 6.5 [pH] 5.0-9.0 [facility] MAGNESIUM BLDon 12-17-2021 Magnesium [Mass/Vol] 2.3 mg/dL 1.7 - 2 .3 mg/dL [facility] Vital Signs Date Time Vital Sign Value Performing Clinician Facility 04-02-2025 11:06-0400 Body height 160 cm Mar Mayo MD Work Phone: [facility] 04-02-2025 11:06-0400 Body mass index (BMI) [Ratio] 31.18 kg/m2 Mar Mayo MD Work Phone: [facility] 04-02-2025 11:06-0400 Body weight 79.83 kg Mar Mayo MD Work Phone: [facility] 04-02-2025 11:06-0400 Diastolic blood pressure 74 mm[Hg] Mar Mayo MD Work Phone: [facility] 04-02-2025 11:06-0400 Heart rate 66 /min Mar Mayo MD Work Phone: [facility] 04-02-2025 11:06-0400 Systolic blood pressure 122 mm[Hg] Mar Mayo MD Work Phone: [facility] 03-14-2025 14:13-0400 Body temperature 98.6 [degF] [place] Work Phone: [facility] 03-14-2025 14:13-0400 Diastolic blood pressure 93 mm[Hg] [facility] Work Phone: [facility] 03-14-2025 14:13-0400 Heart rate 71 /min [facility] Work Phone: [facility] 03-14-2025 14:13-0400 Respiratory rate 18 /min [facility] Work Phone: [facility] 03-14-2025 14:13-0400 SaO2% (BldA) [Mass fraction] 98 % [facility] Work Phone: [facility] 03-14-2025 14:13-0400 Systolic blood pressure 164 mm[Hg] [facility] Work Phone: [facility] 03-13-2025 10:18-0400 Body temperature 98.5 [degF] Stephanie Aichholz Work Phone: [facility] 03-13-2025 10:18-0400 Body weight 80.28 kg Stephanie Aichholz Work Phone: [facility] 03-13-2025 10:18-0400 Diastolic blood pressure 88 mm[Hg] Stephanie Aichholz Work Phone: [facility] 03-13-2025 10:18-0400 Heart rate 62 /min Stephanie Aichholz Work Phone: [facility] 03-13-2025 10:18-0400 Respiratory rate 18 /min Stephanie Dumont Work Phone: [facility] 03-13-2025 10:18-0400 SaO2% (BldA) [Mass fraction] 95 % Stephanie Dumont Work Phone: [facility] 03-13-2025 10:18-0400 Systolic blood pressure 156 mm[Hg] Stephanie Dumont Work Phone: [facility] 02-14-2025 14:13-0400 Body height 158.8 cm Jayden Connelly APRN.EMERGENCY DEPARTMENT Work Phone: [facility] 02-14-2025 14:13-0400 Body mass index (BMI) [Ratio] 31.49 kg/m2 Jayden Connelly APRN.EMERGENCY DEPARTMENT Work Phone: [facility] 02-14-2025 14:13-0400 Body temperature 97.39 [degF] Jayden Connelly APRN.EMERGENCY DEPARTMENT Work Phone: [facility] 02-14-2025 14:13-0400 Body weight 79.4 kg Jayden Connelly APRN.EMERGENCY DEPARTMENT Work Phone: [facility] 02-14-2025 14:13-0400 Diastolic blood pressure 80 mm[Hg] Jayden Connelly APRN.EMERGENCY DEPARTMENT Work Phone: [facility] 02-14-2025 14:13-0400 Heart rate 82 /min Jayden Connelly APRN.EMERGENCY DEPARTMENT Work Phone: [facility] 02-14-2025 14:13-0400 Respiratory rate 16 /min Jayden Connelly APRN.EMERGENCY DEPARTMENT Work Phone: [facility] 02-14-2025 14:13-0400 SaO2% (BldA) [Mass fraction] 100 % Jayden Connelly APRN.EMERGENCY DEPARTMENT Work Phone: [facility] 02-14-2025 14:13-0400 Systolic blood pressure 136 mm[Hg] Jayden Connelly APRN.CNP Work Phone: [facility] 02-05-2025 15:51-0400 Body temperature 96.3 [degF] Susanna Graf MD Work Phone: [facility] 02-05-2025 15:51-0400 Diastolic blood pressure 69 mm[Hg] Susanna Graf MD Work Phone: [facility] 02-05-2025 15:51-0400 Heart rate 69 /min Susanna Graf MD Work Phone: [facility] 02-05-2025 15:51-0400 Respiratory rate 15 /min Susanna Graf MD Work Phone: [facility] 02-05-2025 15:51-0400 SaO2% (BldA) [Mass fraction] 95 % Susanna Graf MD Work Phone: [facility] 02-05-2025 15:51-0400 Systolic blood pressure 148 mm[Hg] Susanna Graf MD Work Phone: [facility] 02-05-2025 10:35-0400 Body height 160 cm Susanna Graf MD Work Phone: [facility] 02-05-2025 10:35-0400 Body mass index (BMI) [Ratio] 31.32 kg/m2 Susanna Graf MD Work Phone: [facility] 02-05-2025 10:35-0400 Body weight 80.2 kg Susanna Graf MD Work Phone: [facility] 01-31-2025 14:29-0400 Body temperature 98.49 [degF] [facility] Work Phone: [facility] 01-31-2025 14:29-0400 Diastolic blood pressure 82 mm[Hg] [facility] Work Phone: [facility] 01-31-2025 14:29-0400 Heart rate 64 /min [facility] Work Phone: [facility] 01-31-2025 14:29-0400 Respiratory rate 18 /min [facility] Work Phone: [facility] 01-31-2025 14:29-0400 SaO2% (BldA) [Mass fraction] 97 % [facility] Work Phone: [facility] 01-31-2025 14:29-0400 Systolic blood pressure 132 mm[Hg] [facility] Work Phone: [facility] 01-27-2025 13:49-0400 Body height 160.02 cm Stephanie Aichholz Work Phone: [facility] 01-27-2025 13:49-0400 Body mass index (BMI) [Ratio] 31.5 kg/m2 Stephanie Aichholz Work Phone: [facility] 01-27-2025 13:49-0400 Body weight 80.73 kg Stephanie Aichholz Work Phone: [facility] 01-27-2025 13:49-0400 Diastolic blood pressure 82 mm[Hg] Stephanie Aichholz Work Phone: [facility] 01-27-2025 13:49-0400 Heart rate 78 /min Stephanie Aichholz Work Phone: [facility] 01-27-2025 13:49-0400 Respiratory rate 16 /min Stephanie Aichholz Work Phone: [facility] 01-27-2025 13:49-0400 SaO2% (BldA) [Mass fraction] 97 % Stephanie Aichholz Work Phone: [facility] 01-27-2025 13:49-0400 Systolic blood pressure 127 mm[Hg] Stephanie Aichholz Work Phone: [facility] 01-17-2025 14:36-0400 Body temperature 98.2 [degF] [facility] Work Phone: [facility] 01-17-2025 14:36-0400 Diastolic blood pressure 84 mm[Hg] [facility] Work Phone: [facility] 01-17-2025 14:36-0400 Heart rate 67 /min [facility] Work Phone: [facility] 01-17-2025 14:36-0400 Respiratory rate 18 /min [facility] Work Phone: [facility] 01-17-2025 14:36-0400 SaO2% (BldA) [Mass fraction] 99 % [facility] Work Phone: [facility] 01-17-2025 14:36-0400 Systolic blood pressure 144 mm[Hg] [facility] Work Phone: [facility] 01-15-2025 14:15-0400 Body mass index (BMI) [Ratio] 30.96 kg/m2 Stephanie Tim [employer] Work Phone: [facility] 01-15-2025 14:15-0400 Body temperature 98.49 [degF] Stephanie Anilz [employer] Work Phone: [facility] 01-15-2025 14:15-0400 Body weight 79.29 kg Stephanie Maurisioholz [employer] Work Phone: [facility] 01-15-2025 14:15-0400 Diastolic blood pressure 80 mm[Hg] Stephanie Aichholz [employer] Work Phone: [facility] 01-15-2025 14:15-0400 Heart rate 87 /min Stephanie Aichholz [employer] Work Phone: [facility] 01-15-2025 14:15-0400 Respiratory rate 18 /min Stephanie Anilz [employer] Work Phone: [facility] 01-15-2025 14:15-0400 SaO2% (BldA) [Mass fraction] 98 % Stephanie Aichholz [employer] Work Phone: [facility] 01-15-2025 14:15-0400 Systolic blood pressure 144 mm[Hg] Stephanie Aichholz [employer] Work Phone: [facility] 01-06-2025 11:37-0400 Body mass index (BMI) [Ratio] 31.35 kg/m2 Stephanie Aichholz [employer] Work Phone: [facility] 01-06-2025 11:37-0400 Body temperature 98.49 [degF] Stephanie Aichholz [employer] Work Phone: [facility] 01-06-2025 11:37-0400 Body weight 80.29 kg Stephanie Aichholz [employer] Work Phone: [facility] 01-06-2025 11:37-0400 Diastolic blood pressure 70 mm[Hg] Stephanie Aichholz [employer] Work Phone: [facility] 01-06-2025 11:37-0400 Heart rate 63 /min Stephanie Aichholz [employer] Work Phone: [facility] 01-06-2025 11:37-0400 Respiratory rate 18 /min Stephanie Aichholz [employer] Work Phone: [facility] 01-06-2025 11:37-0400 SaO2% (BldA) [Mass fraction] 97 % Stephanie Aichholz [employer] Work Phone: [facility] 01-06-2025 11:37-0400 Systolic blood pressure 120 mm[Hg] Stephanie Aichholz [employer] Work Phone: [facility] 01-03-2025 13:58-0400 Body mass index (BMI) [Ratio] 31.72 kg/m2 Jayden Connelly APRN.EMERGENCY DEPARTMENT Work Phone: [facility] 01-03-2025 13:58-0400 Body temperature 97.59 [degF] Jayden Connelly [employer] WORKER.EMERGENCY DEPARTMENT Work Phone: [facility] 01-03-2025 13:58-0400 Body weight 80 kg Jayden Connelly [employer] SOCIAL WORKER.EMERGENCY DEPARTMENT Work Phone: [facility] 01-03-2025 13:58-0400 Diastolic blood pressure 73 mm[Hg] Jayden Connelly [employer] SOCIAL WORKER.EMERGENCY DEPARTMENT Work Phone: [facility] 01-03-2025 13:58-0400 Heart rate 61 /min Jayden Connelly [employer] SOCIAL WORKER.EMERGENCY DEPARTMENT Work Phone: [facility] 01-03-2025 13:58-0400 Respiratory rate 18 /min Jayden Connelly [employer] SOCIAL WORKER.EMERGENCY DEPARTMENT Work Phone: [facility] 01-03-2025 13:58-0400 SaO2% (BldA) [Mass fraction] 98 % Jayden Connelly [employer] SOCIAL WORKER.EMERGENCY DEPARTMENT Work Phone: [facility] 01-03-2025 13:58-0400 Systolic blood pressure 153 mm[Hg] Jayden Connelly [employer] SOCIAL WORKER.EMERGENCY DEPARTMENT Work Phone: [facility] 12-25-2024 11:04-0400 Body mass index (BMI) [Ratio] 30.72 kg/m2 Stephanie Dumont [employer] Work Phone: [facility] 12-25-2024 11:04-0400 Body temperature 98.71 [degF] Stephanie Dumont [employer] Work Phone: [facility] 12-25-2024 11:04-0400 Body weight 78.65 kg Stephanie Tim [employer] Work Phone: [facility] 12-25-2024 11:04-0400 Diastolic blood pressure 58 mm[Hg] Stephanie Tim [employer] Work Phone: [facility] 12-25-2024 11:04-0400 Heart rate 73 /min Stephanie Duomnt [employer] Work Phone: [facility] 12-25-2024 11:04-0400 Respiratory rate 18 /min Stephanie Aichholz [employer] Work Phone: [facility] 12-25-2024 11:04-0400 SaO2% (BldA) [Mass fraction] 97 % Stephanie Dumont [employer] Work Phone: [facility] 12-25-2024 11:04-0400 Systolic blood pressure 96 mm[Hg] Stephanie Dumont [employer] Work Phone: [facility] 12-20-2024 13:42-0400 Body temperature 97.7 [degF] [facility] Work Phone: [facility] 12-20-2024 13:42-0400 Diastolic blood pressure 72 mm[Hg] [facility] Work Phone: [facility] 12-20-2024 13:42-0400 Heart rate 77 /min [facility] Work Phone: [facility] 12-20-2024 13:42-0400 Respiratory rate 18 /min [facility] Work Phone: [facility] 12-20-2024 13:42-0400 SaO2% (BldA) [Mass fraction] 99 % [facility] Work Phone: [facility] 12-20-2024 13:42-0400 Systolic blood pressure 116 mm[Hg] [facility] Work Phone: [facility] 2024 13:40-0400 Body temperature 98.1 [degF] [facility] Work Phone: [facility] 2024 13:40-0400 Diastolic blood pressure 83 mm[Hg] [facility] Work Phone: [facility] 2024 13:40-0400 Heart rate 67 /min [facility] Work Phone: [facility] 2024 13:40-0400 Respiratory rate 18 /min [facility] Work Phone: [facility] 2024 13:40-0400 SaO2% (BldA) [Mass fraction] 98 % [facility] Work Phone: [facility] 2024 13:40-0400 Systolic blood pressure 136 mm[Hg] [facility] Work Phone: [facility] 11-26-2024 15:28-0400 Body mass index (BMI) [Ratio] 34.19 kg/m2 Susanna Graf MD Work Phone: [facility] 11-26-2024 15:28-0400 Body weight 87.54 kg Susanna Graf MD Work Phone: [facility] 11-22-2024 13:57-0400 Body mass index (BMI) [Ratio] 32.44 kg/m2 Rinku Ramsey MD Work Phone: [facility] 11-22-2024 13:57-0400 Body temperature 97.11 [degF] Rinku Ramsey MD Work Phone: [facility] 11-22-2024 13:57-0400 Body weight 81.8 kg Rinku Ramsey MD Work Phone: [facility] 11-22-2024 13:57-0400 Diastolic blood pressure 81 mm[Hg] Rinku Ramsey MD Work Phone: [facility] 11-22-2024 13:57-0400 Heart rate 78 /min Rinku Ramsey MD Work Phone: [facility] 11-22-2024 13:57-0400 Respiratory rate 18 /min Rinku Ramsey MD Work Phone: [facility] 11-22-2024 13:57-0400 SaO2% (BldA) [Mass fraction] 97 % Rinku Ramsey MD Work Phone: [facility] 11-22-2024 13:57-0400 Systolic blood pressure 125 mm[Hg] Rinku Ramsey MD Work Phone: [facility] 10-11-2024 10:08-0400 Body mass index (BMI) [Ratio] 32.32 kg/m2 Li Hong [employer] WORKER.EMERGENCY DEPARTMENT Work Phone: [facility] 10-11-2024 10:08-0400 Body temperature 97.81 [degF] Li Hong [employer] SOCIAL WORKER.EMERGENCY DEPARTMENT Work Phone: [facility] 10-11-2024 10:08-0400 Body weight 81.5 kg Li Hong [employer] SOCIAL WORKER.EMERGENCY DEPARTMENT Work Phone: [facility] 10-11-2024 10:08-0400 Diastolic blood pressure 84 mm[Hg] Li Hong [employer] SOCIAL WORKER.EMERGENCY DEPARTMENT Work Phone: [facility] 10-11-2024 10:08-0400 Heart rate 79 /min Li Hong [employer] SOCIAL WORKER.EMERGENCY DEPARTMENT Work Phone: [facility] 10-11-2024 10:08-0400 Respiratory rate 16 /min Li Hong [employer] SOCIAL WORKER.EMERGENCY DEPARTMENT Work Phone: [facility] 10-11-2024 10:08-0400 SaO2% (BldA) [Mass fraction] 99 % Li Hong [employer] SOCIAL WORKER.EMERGENCY DEPARTMENT Work Phone: [facility] 10-11-2024 10:08-0400 Systolic blood pressure 153 mm[Hg] Li Hong [employer] SOCIAL WORKER.EMERGENCY DEPARTMENT Work Phone: [facility] 08-30-2024 10:48-0500 Body mass index (BMI) [Ratio] 32.79 kg/m2 Li Hong [employer] SOCIAL WORKER.EMERGENCY DEPARTMENT Work Phone: [facility] 08-30-2024 10:48-0500 Body temperature 97.5 [degF] Li Hong [employer] SOCIAL WORKER.EMERGENCY DEPARTMENT Work Phone: [facility] 02-21-2025 10:48-0500 Body weight 82.7 kg Li Hong [employer] SOCIAL WORKER.EMERGENCY DEPARTMENT Work Phone: [facility] 08-30-2024 10:48-0500 Diastolic blood pressure 76 mm[Hg] Li Hong [employer] SOCIAL WORKER.EMERGENCY DEPARTMENT Work Phone: [facility] 08-30-2024 10:48-0500 Heart rate 75 /min Li Hong [employer] SOCIAL WORKER.EMERGENCY DEPARTMENT Work Phone: [facility] 08-30-2024 10:48-0500 Respiratory rate 18 /min Li Hong [employer] SOCIAL WORKER.EMERGENCY DEPARTMENT Work Phone: [facility] 08-30-2024 10:48-0500 SaO2% (BldA) [Mass fraction] 98 % Li Hong [employer] SOCIAL WORKER.EMERGENCY DEPARTMENT Work Phone: [facility] 08-30-2024 10:48-0500 Systolic blood pressure 114 mm[Hg] Li Hong [employer] SOCIAL WORKER.EMERGENCY DEPARTMENT Work Phone: [facility] 08-21-2024 13:17-0500 Body height 160.02 cm [facility] 08-21-2024 13:17-0500 Body mass index (BMI) [Ratio] 32.2 kg/m2 [facility] 08-21-2024 13:17-0500 Body temperature 96.2 [degF] [facility] 08-21-2024 13:17-0500 Body weight 82.55 kg [facility] 08-21-2024 13:17-0500 Diastolic blood pressure 70 mm[Hg] [facility] 08-21-2024 13:17-0500 Heart rate 85 /min [facility] 08-21-2024 13:17-0500 Respiratory rate 18 /min [facility] 08-21-2024 13:17-0500 SaO2% (BldA) [Mass fraction] 98 % [facility] 08-21-2024 13:17-0500 Systolic blood pressure 121 mm[Hg] [facility] 08-15-2024 10:46-0500 Body height 160 cm Stephanie Dumont [employer] Work Phone: [facility] 08-15-2024 10:46-0500 Body mass index (BMI) [Ratio] 32.38 kg/m2 Stephanie Dumont [employer] Work Phone: [facility] 08-15-2024 10:46-0500 Body temperature 98.71 [degF] Stephanie Dumont [employer] Work Phone: [facility] 08-15-2024 10:46-0500 Body weight 82.92 kg Stephanie Dumont [employer] Work Phone: [facility] 08-15-2024 10:46-0500 Diastolic blood pressure 78 mm[Hg] Stephanie Dumont [employer] Work Phone: [facility] 08-15-2024 10:46-0500 Heart rate 65 /min Stephanie Dumont [employer] Work Phone: [facility] 08-15-2024 10:46-0500 Respiratory rate 19 /min Stephanie Dumont [employer] Work Phone: [facility] 08-15-2024 10:46-0500 SaO2% (BldA) [Mass fraction] 99 % Stephanie Dumont [employer] Work Phone: [facility] 08-15-2024 10:46-0500 Systolic blood pressure 140 mm[Hg] Stephanie Dumont [employer] Work Phone: [facility] 07-11-2024 10:52-0500 Body height 158.8 cm Li Frank APRN.EMERGENCY DEPARTMENT Work Phone: [facility] 07-11-2024 10:52-0500 Body mass index (BMI) [Ratio] 33.55 kg/m2 Li Frank APRN.EMERGENCY DEPARTMENT Work Phone: [facility] 07-11-2024 10:52-0500 Body temperature 97.59 [degF] Li Frank [employer] WORKER.EMERGENCY DEPARTMENT Work Phone: [facility] 07-11-2024 10:52-0500 Body weight 84.6 kg Li Hong [employer] SOCIAL WORKER.EMERGENCY DEPARTMENT Work Phone: [facility] 07-11-2024 10:52-0500 Diastolic blood pressure 83 mm[Hg] Li Hong [employer] SOCIAL WORKER.EMERGENCY DEPARTMENT Work Phone: [facility] 07-11-2024 10:52-0500 Heart rate 77 /min Li Hong [employer] SOCIAL WORKER.EMERGENCY DEPARTMENT Work Phone: [facility] 07-11-2024 10:52-0500 Respiratory rate 18 /min Li Hong [employer] SOCIAL WORKER.EMERGENCY DEPARTMENT Work Phone: [facility] 07-11-2024 10:52-0500 SaO2% (BldA) [Mass fraction] 97 % Li Hong [employer] SOCIAL WORKER.EMERGENCY DEPARTMENT Work Phone: [facility] 07-11-2024 10:52-0500 Systolic blood pressure 136 mm[Hg] Li Hong [employer] SOCIAL WORKER.EMERGENCY DEPARTMENT Work Phone: [facility] 05-30-2024 10:29-0500 Body height 158.8 cm Rinku Ramsey MD Work Phone: [facility] 05-30-2024 10:29-0500 Body mass index (BMI) [Ratio] 33.03 kg/m2 Rinku Ramsey MD Work Phone: [facility] 05-30-2024 10:29-0500 Body temperature 97.2 [degF] Rinuk Ramsey MD Work Phone: [facility] 05-30-2024 10:29-0500 Body weight 83.3 kg Rinku Ramsey MD Work Phone: [facility] 05-30-2024 10:29-0500 Diastolic blood pressure 80 mm[Hg] Rinku Ramsey MD Work Phone: [facility] 05-30-2024 10:29-0500 Heart rate 71 /min Rinku Ramsey MD Work Phone: [facility] 05-30-2024 10:29-0500 Respiratory rate 16 /min Rinku Ramsey MD Work Phone: [facility] 05-30-2024 10:29-0500 SaO2% (BldA) [Mass fraction] 97 % Rinku Ramsey MD Work Phone: [facility] 05-30-2024 10:29-0500 Systolic blood pressure 145 mm[Hg] Rinku Ramsey MD Work Phone: [facility] 05-15-2024 14:15-0500 Body height 160 cm Mar Mayo MD Work Phone: [facility] 05-15-2024 14:15-0500 Body mass index (BMI) [Ratio] 32.77 kg/m2 Mar Mayo MD Work Phone: [facility] 05-15-2024 14:15-0500 Body weight 83.92 kg Mar Mayo MD Work Phone: [facility] 05-15-2024 14:15-0500 Diastolic blood pressure 64 mm[Hg] Mar Mayo MD Work Phone: [facility] 05-15-2024 14:15-0500 Systolic blood pressure 109 mm[Hg] Mar Mayo MD Work Phone: [facility] 05-14-2024 10:32-0500 Body height 160 cm Stephanie Dumont [employer] Work Phone: [facility] 05-14-2024 10:32-0500 Body mass index (BMI) [Ratio] 33.13 kg/m2 Stephanie Dumont [employer] Work Phone: [facility] 05-14-2024 10:32-0500 Body temperature 98.71 [degF] Stephanie Dumont [employer] Work Phone: [facility] 05-14-2024 10:32-0500 Body weight 84.82 kg Stephanie Aichholz [employer] Work Phone: [facility] 05-14-2024 10:32-0500 Diastolic blood pressure 70 mm[Hg] Stephanie Aichholz [employer] Work Phone: [facility] 05-14-2024 10:32-0500 Heart rate 75 /min Stephanie Aichholz [employer] Work Phone: [facility] 05-14-2024 10:32-0500 Respiratory rate 19 /min Tsephanie Aichholz [employer] Work Phone: [facility] 05-14-2024 10:32-0500 SaO2% (BldA) [Mass fraction] 97 % Stephanie Aichholz [employer] Work Phone: [facility] 05-14-2024 10:32-0500 Systolic blood pressure 116 mm[Hg] Stephanie Aichholz [employer] Work Phone: [facility] 04-24-2024 11:08-0400 Body height 160 cm Stephanie Aichholz [employer] Work Phone: [facility] 04-24-2024 11:08-0400 Body mass index (BMI) [Ratio] 32.38 kg/m2 Stephanie Aichholz [employer] Work Phone: [facility] 04-24-2024 11:08-0400 Body temperature 98.49 [degF] Stephanie Aichholz [employer] Work Phone: [facility] 04-24-2024 11:08-0400 Body weight 82.92 kg Stephanie Aichholz [employer] Work Phone: [facility] 04-24-2024 11:08-0400 Diastolic blood pressure 72 mm[Hg] Stephanie Aichholz [employer] Work Phone: [facility] 04-24-2024 11:08-0400 Heart rate 74 /min Stephanie Aichholz [employer] Work Phone: [facility] 04-24-2024 11:08-0400 Respiratory rate 19 /min Stephanie Aichholz [employer] Work Phone: [facility] 04-24-2024 11:08-0400 SaO2% (BldA) [Mass fraction] 100 % Stephanie Tim [employer] Work Phone: [facility] 04-24-2024 11:08-0400 Systolic blood pressure 138 mm[Hg] Stephanie Tim [employer] Work Phone: [facility] 04-18-2024 11:02-0400 Body height 158.8 cm Rinku Ramsey MD Work Phone: [facility] 04-18-2024 11:02-0400 Body mass index (BMI) [Ratio] 34.72 kg/m2 Rinku Ramsey MD Work Phone: [facility] 04-18-2024 11:02-0400 Body temperature 97.59 [degF] Rinku Ramsey MD Work Phone: [facility] 04-18-2024 11:02-0400 Body weight 87.54 kg Rinku Ramsey MD Work Phone: [facility] 04-18-2024 11:02-0400 Diastolic blood pressure 81 mm[Hg] Rinku Ramsey MD Work Phone: [facility] 04-18-2024 11:02-0400 Heart rate 74 /min Rinku Ramsey MD Work Phone: [facility] 04-18-2024 11:02-0400 Respiratory rate 16 /min Rinku Ramsey MD Work Phone: [facility] 04-18-2024 11:02-0400 SaO2% (BldA) [Mass fraction] 97 % Rinku Ramsey MD Work Phone: [facility] 04-18-2024 11:02-0400 Systolic blood pressure 136 mm[Hg] Rinku Ramsey MD Work Phone: [facility] 04-09-2024 10:15-0400 Body height 160 cm Blaise GONZALEZ Work Phone: [facility] 04-09-2024 10:15-0400 Body mass index (BMI) [Ratio] 32.59 kg/m2 Blaise Alex PA Work Phone: [facility] 04-09-2024 10:15-0400 Body weight 83.46 kg Blaise Alex PA Work Phone: [facility] 04-04-2024 09:47-0400 Body height 160 cm Stephanie Aichholz [employer] Work Phone: [facility] 04-04-2024 09:47-0400 Body mass index (BMI) [Ratio] 32.7 kg/m2 Stephanie Aichholz [employer] Work Phone: [facility] 04-04-2024 09:47-0400 Body temperature 98.29 [degF] Stephanie Aichholz [employer] Work Phone: [facility] 04-04-2024 09:47-0400 Body weight 83.73 kg Stephanie Aichholz [employer] Work Phone: [facility] 04-04-2024 09:47-0400 Diastolic blood pressure 80 mm[Hg] Stephanie Aichholz [employer] Work Phone: [facility] 04-04-2024 09:47-0400 Heart rate 72 /min Stephanie Aichholz [employer] Work Phone: [facility] 04-04-2024 09:47-0400 Respiratory rate 19 /min Stephanie Aichholz [employer] Work Phone: [facility] 04-04-2024 09:47-0400 SaO2% (BldA) [Mass fraction] 98 % Stephanie Aichholz [employer] Work Phone: [facility] 04-04-2024 09:47-0400 Systolic blood pressure 112 mm[Hg] Stephanie Aichholz [employer] Work Phone: [facility] 03-05-2024 10:56-0400 Body height 158.8 cm Rinku Ramsey MD Work Phone: [facility] 03-05-2024 10:56-0400 Body mass index (BMI) [Ratio] 34.66 kg/m2 Rinku Ramsey MD Work Phone: [facility] 03-05-2024 10:56-0400 Body temperature 97.7 [degF] Rinku Ramsey MD Work Phone: [facility] 03-05-2024 10:56-0400 Body weight 87.4 kg Rinku Ramsey MD Work Phone: [facility] 03-05-2024 10:56-0400 Diastolic blood pressure 72 mm[Hg] Rinku Ramsey MD Work Phone: [facility] 03-05-2024 10:56-0400 Heart rate 74 /min Rinku Ramsey MD Work Phone: [facility] 03-05-2024 10:56-0400 Respiratory rate 16 /min Rinku Ramsey MD Work Phone: [facility] 03-05-2024 10:56-0400 SaO2% (BldA) [Mass fraction] 98 % Rinku Ramsey MD Work Phone: [facility] 03-05-2024 10:56-0400 Systolic blood pressure 128 mm[Hg] Rinku Ramsey MD Work Phone: [facility] 03-04-2024 10:27-0400 Body mass index (BMI) [Ratio] 34.19 kg/m2 Stephanie Dumont [employer] Work Phone: [facility] 03-04-2024 10:27-0400 Body temperature 97.2 [degF] Stephanie Dumont [employer] Work Phone: [facility] 03-04-2024 10:27-0400 Body weight 87.54 kg Stephanie Dumont [employer] Work Phone: [facility] 03-04-2024 10:27-0400 Diastolic blood pressure 64 mm[Hg] Stephanie Forderichi [employer] Work Phone: [facility] 03-04-2024 10:27-0400 Heart rate 80 /min Stephanie Forderichi [employer] Work Phone: [facility] 03-04-2024 10:27-0400 SaO2% (BldA) [Mass fraction] 98 % Stephanie Forderichi [employer] Work Phone: [facility] 03-04-2024 10:27-0400 Systolic blood pressure 138 mm[Hg] Stephanie Forderichi [employer] Work Phone: [facility] 02-02-2024 13:21-0400 Body height 158.8 cm Rinku Ramsey MD Work Phone: [facility] 02-02-2024 13:21-0400 Body mass index (BMI) [Ratio] 34.54 kg/m2 Rinku Ramsey MD Work Phone: [facility] 02-02-2024 13:21-0400 Body temperature 97.7 [degF] Rinku Ramsey MD Work Phone: [facility] 02-02-2024 13:21-0400 Body weight 87.1 kg Rinku Ramsey MD Work Phone: [facility] 02-02-2024 13:21-0400 Diastolic blood pressure 68 mm[Hg] Rinku Ramsey MD Work Phone: [facility] 02-02-2024 13:21-0400 Heart rate 76 /min Rinku Ramsey MD Work Phone: [facility] 02-02-2024 13:21-0400 Respiratory rate 16 /min Rinku Ramsey MD Work Phone: [facility] 02-02-2024 13:21-0400 SaO2% (BldA) [Mass fraction] 100 % Rinku Ramsey MD Work Phone: [place] [address]-26-2024 13:21-0400 Systolic blood pressure 142 mm[Hg] Rinku Ramsey MD Work Phone: [facility] 12-18-2023 14:20-0400 Body temperature 97.2 [degF] Susanna Graf MD Work Phone: [facility] 12-18-2023 14:20-0400 Diastolic blood pressure 57 mm[Hg] Susanna Graf MD Work Phone: [facility] 12-18-2023 14:20-0400 Heart rate 79 /min Susanna Graf MD Work Phone: [facility] 12-18-2023 14:20-0400 Respiratory rate 19 /min Susanna Graf MD Work Phone: [facility] 12-18-2023 14:20-0400 SaO2% (BldA) [Mass fraction] 96 % Susanna Graf MD Work Phone: [facility] 12-18-2023 14:20-0400 Systolic blood pressure 131 mm[Hg] Susanna Graf MD Work Phone: [facility] 12-18-2023 06:28-0400 Body height 160 cm Susanna Graf MD Work Phone: [facility] 12-18-2023 06:28-0400 Body mass index (BMI) [Ratio] 33.94 kg/m2 Susanna Graf MD Work Phone: [facility] 12-18-2023 06:28-0400 Body weight 86.9 kg Susanna Graf MD Work Phone: [facility] 11-24-2023 10:59-0400 Body height 158.8 cm Rinku Ramsey MD Work Phone: [facility] 11-24-2023 10:59-0400 Body mass index (BMI) [Ratio] 34.78 kg/m2 Rinku Ramsey MD Work Phone: [facility] 11-24-2023 10:59-0400 Body temperature 97.7 [degF] Rinku Ramsey MD Work Phone: [facility] 11-24-2023 10:59-0400 Body weight 87.7 kg Rinku Ramsey MD Work Phone: [facility] 11-24-2023 10:59-0400 Diastolic blood pressure 84 mm[Hg] Rinku Ramsey MD Work Phone: [facility] 11-24-2023 10:59-0400 Heart rate 68 /min Rinku Ramsey MD Work Phone: [facility] 11-24-2023 10:59-0400 Respiratory rate 16 /min Rinku Ramsey MD Work Phone: [facility] 11-24-2023 10:59-0400 SaO2% (BldA) [Mass fraction] 100 % Rinku Ramsey MD Work Phone: [facility] 11-24-2023 10:59-0400 Systolic blood pressure 152 mm[Hg] Rinku Ramsey MD Work Phone: [facility] 11-14-2023 12:52-0400 Body height 160 cm Susanna Graf MD Work Phone: [facility] 11-14-2023 12:52-0400 Body mass index (BMI) [Ratio] 34.28 kg/m2 Susanna Graf MD Work Phone: [facility] 11-14-2023 12:52-0400 Body temperature 97.11 [degF] Susanna Graf MD Work Phone: [facility] 11-14-2023 12:52-0400 Body weight 87.77 kg Susanna Graf MD Work Phone: [facility] 10-13-2023 13:11-0400 Body height 158.8 cm Ana Mary PA-C Work Phone: [facility] 10-13-2023 13:11-0400 Body temperature 97.59 [degF] Ana Mary PA-C Work Phone: [facility] 10-13-2023 13:11-0400 Body weight 87 kg Ana Mary PA-C Work Phone: [facility] 10-13-2023 13:11-0400 Diastolic blood pressure 84 mm[Hg] Ana Mary PA-C Work Phone: [facility] 10-13-2023 13:11-0400 Heart rate 68 /min Ana Mary PA-C Work Phone: [facility] 10-13-2023 13:11-0400 Respiratory rate 18 /min Ana Mary PA-C Work Phone: [facility] 10-13-2023 13:11-0400 SaO2% (BldA) [Mass fraction] 98 % Ana Mary PA-C Work Phone: [facility] 10-13-2023 13:11-0400 Systolic blood pressure 152 mm[Hg] Ana Mary PA-C Work Phone: [facility] 08-28-2023 14:37-0500 Body temperature 97.59 [degF] Rinku Ramsey MD Work Phone: [facility] 08-28-2023 14:37-0500 Body weight 87.3 kg Rinku Ramsey MD Work Phone: [facility] 08-28-2023 14:37-0500 Diastolic blood pressure 78 mm[Hg] Rinku Ramsey MD Work Phone: [facility] 08-28-2023 14:37-0500 Heart rate 85 /min Rinku Ramsey MD Work Phone: [facility] 08-28-2023 14:37-0500 Respiratory rate 16 /min Rinku Ramsey MD Work Phone: [facility] 08-28-2023 14:37-0500 SaO2% (BldA) [Mass fraction] 97 % Rinku Ramsey MD Work Phone: [facility] 08-28-2023 14:37-0500 Systolic blood pressure 132 mm[Hg] Rinku Ramsey MD Work Phone: [facility] 08-23-2023 10:10-0500 Body height 160 cm Mar Mayo MD Work Phone: [facility] 08-23-2023 10:10-0500 Body mass index (BMI) [Ratio] 33.66 kg/m2 Mar Mayo MD Work Phone: [facility] 08-23-2023 10:10-0500 Body weight 86.18 kg Mar Mayo MD Work Phone: [facility] 08-23-2023 10:10-0500 Diastolic blood pressure 68 mm[Hg] Mar Mayo MD Work Phone: [facility] 08-23-2023 10:10-0500 Systolic blood pressure 133 mm[Hg] Mar Mayo MD Work Phone: [facility] 06-28-2023 10:20-0500 Body height 160.02 cm Gilson Tyrel Other [employer] Other 06-28-2023 10:20-0500 Body mass index (BMI) [Ratio] 34.04 kg/m2 Gilson Tyrel Other [employer] Other 06-28-2023 10:20-0500 Body temperature 96.7 [degF] Gilson Tyrel Other [employer] Other 06-28-2023 10:20-0500 Body weight 87.18 kg Gilson Tyrel Other [employer] Other 06-28-2023 10:20-0500 Diastolic blood pressure 59 mm[Hg] Gilson Tyrel Other [employer] Other 06-28-2023 10:20-0500 Respiratory rate 18 /min Gilson Tyrel Other [employer] Other 06-28-2023 10:20-0500 SaO2% (BldA) [Mass fraction] 96 % Gilson Tyrel Other [employer] Other 06-28-2023 10:20-0500 Systolic blood pressure 117 mm[Hg] Gilson Tyrel Other [employer] Other 06-05-2023 10:08-0500 Body height 158.8 cm Ana Mary PA-C Work Phone: [facility] 06-05-2023 10:08-0500 Body temperature 97 [degF] Ana Mary PA-C Work Phone: [facility] 06-05-2023 10:08-0500 Body weight 87.27 kg Ana Mary PA-C Work Phone: [facility] 06-05-2023 10:08-0500 Diastolic blood pressure 84 mm[Hg] Ana Mary PA-C Work Phone: [facility] 06-05-2023 10:08-0500 Heart rate 76 /min Aan Mary PA-C Work Phone: [facility] 06-05-2023 10:08-0500 Respiratory rate 16 /min Ana Mary PA-C Work Phone: [facility] 06-05-2023 10:08-0500 SaO2% (BldA) [Mass fraction] 97 % Ana Mary PA-C Work Phone: [facility] 06-05-2023 10:08-0500 Systolic blood pressure 152 mm[Hg] Ana Hernandez PA-C Work Phone: [facility] 04-20-2023 10:11-0400 Body height 158.8 cm Rinku Ramsey MD Work Phone: [facility] 04-20-2023 10:11-0400 Body temperature 97.81 [degF] Rinku Ramsey MD Work Phone: [facility] 04-20-2023 10:11-0400 Body weight 89 kg Rinku Ramsey MD Work Phone: [facility] 04-20-2023 10:11-0400 Diastolic blood pressure 87 mm[Hg] Rinku Ramsey MD Work Phone: [facility] 04-20-2023 10:11-0400 Heart rate 72 /min Rinku Ramsey MD Work Phone: [facility] 04-20-2023 10:11-0400 Respiratory rate 18 /min Rinku Ramsey MD Work Phone: [facility] 04-20-2023 10:11-0400 SaO2% (BldA) [Mass fraction] 98 % Rinku Ramsey MD Work Phone: [facility] 04-20-2023 10:11-0400 Systolic blood pressure 168 mm[Hg] Rinku Ramsey MD Work Phone: [facility] 03-09-2023 14:03-0400 Body height 158.8 cm Rinku Ramsey MD Work Phone: [facility] 03-09-2023 14:03-0400 Body temperature 97.59 [degF] Rinku Ramsey MD Work Phone: [facility] 03-09-2023 14:03-0400 Body weight 88.27 kg Rinku Ramsey MD Work Phone: [facility] 03-09-2023 14:03-0400 Diastolic blood pressure 76 mm[Hg] Rinku Ramsey MD Work Phone: [facility] 03-09-2023 14:03-0400 Heart rate 71 /min Rinku Ramsey MD Work Phone: [facility] 03-09-2023 14:03-0400 Respiratory rate 16 /min Rinku Ramsey MD Work Phone: [facility] 03-09-2023 14:03-0400 SaO2% (BldA) [Mass fraction] 95 % Rinku Ramsey MD Work Phone: [facility] 03-09-2023 14:03-0400 Systolic blood pressure 143 mm[Hg] Rinku Ramsey MD Work Phone: [facility] 01-26-2023 14:48-0400 Body height 158.8 cm Rinku Ramsey MD Work Phone: [facility] 01-26-2023 14:48-0400 Body temperature 97.59 [degF] Rinku Ramsey MD Work Phone: [facility] 01-26-2023 14:48-0400 Body weight 89.09 kg Rinku Ramsey MD Work Phone: [facility] 01-26-2023 14:48-0400 Diastolic blood pressure 77 mm[Hg] Rinku Ramsey MD Work Phone: [facility] 01-26-2023 14:48-0400 Heart rate 75 /min Rinku Ramsey MD Work Phone: [facility] 01-26-2023 14:48-0400 Respiratory rate 18 /min Rinku Ramsey MD Work Phone: [facility] 01-26-2023 14:48-0400 SaO2% (BldA) [Mass fraction] 98 % Rinku Ramsey MD Work Phone: [facility] 01-26-2023 14:48-0400 Systolic blood pressure 147 mm[Hg] Rinku Ramsey MD Work Phone: [facility] 12-15-2022 13:52-0400 Body height 158.8 cm Rinku Ramsey MD Work Phone: [facility] 12-15-2022 13:52-0400 Body temperature 97.5 [degF] Rinku Ramsey MD Work Phone: [facility] 12-15-2022 13:52-0400 Body weight 87.36 kg Rinku Ramsey MD Work Phone: [facility] 12-15-2022 13:52-0400 Diastolic blood pressure 8 mm[Hg] Rinku Ramsey MD Work Phone: [facility] 12-15-2022 13:52-0400 Heart rate 64 /min Rinku Ramsey MD Work Phone: [facility] 12-15-2022 13:52-0400 Respiratory rate 16 /min Rinku Ramsey MD Work Phone: [facility] 12-15-2022 13:52-0400 SaO2% (BldA) [Mass fraction] 96 % Rinku Ramsey MD Work Phone: [facility] 12-15-2022 13:52-0400 Systolic blood pressure 152 mm[Hg] Rinku Ramsey MD Work Phone: [facility] 10-27-2022 14:56-0400 Body height 158.8 cm Rinku Ramsey MD Work Phone: [facility] 10-27-2022 14:56-0400 Body temperature 97.39 [degF] Rinku Ramsey MD Work Phone: [facility] 10-27-2022 14:56-0400 Body weight 87.36 kg Rinku Ramsey MD Work Phone: [facility] 10-27-2022 14:56-0400 Diastolic blood pressure 84 mm[Hg] Rinku Ramsey MD Work Phone: [facility] 10-27-2022 14:56-0400 Heart rate 71 /min Rinku Ramsey MD Work Phone: [facility] 10-27-2022 14:56-0400 Respiratory rate 18 /min Rinku Ramsey MD Work Phone: [facility] 10-27-2022 14:56-0400 SaO2% (BldA) [Mass fraction] 98 % Rinku Ramsey MD Work Phone: [facility] 10-27-2022 14:56-0400 Systolic blood pressure 164 mm[Hg] Rinku Ramsey MD Work Phone: [facility] 09-15-2022 15:20-0500 Body height 158.8 cm Rinku Ramsey MD Work Phone: [facility] 09-15-2022 15:20-0500 Body temperature 97.11 [degF] Rinku Ramsey MD Work Phone: [facility] 09-15-2022 15:20-0500 Body weight 86.36 kg Rinku Ramsey MD Work Phone: [facility] 09-15-2022 15:20-0500 Diastolic blood pressure 89 mm[Hg] Rinku Ramsey MD Work Phone: [facility] 09-15-2022 15:20-0500 Heart rate 75 /min iRnku Ramsey MD Work Phone: [facility] 09-15-2022 15:20-0500 Respiratory rate 16 /min Rinku Ramsey MD Work Phone: [facility] 09-15-2022 15:20-0500 SaO2% (BldA) [Mass fraction] 97 % Rinku Ramsey MD Work Phone: [facility] 09-15-2022 15:20-0500 Systolic blood pressure 158 mm[Hg] Rinku Ramsey MD Work Phone: [facility] 09-07-2022 10:20-0500 Body height 160.02 cm Gilson Tyrel Other [employer] Other 09-07-2022 10:20-0500 Body mass index (BMI) [Ratio] 33.69 kg/m2 Gilson Tyrel Other [employer] Other 09-07-2022 10:20-0500 Body temperature 96.4 [degF] Gilson Tyrel Other [employer] Other 09-07-2022 10:20-0500 Body weight 86.27 kg Gilson Tyrel Other [employer] Other 09-07-2022 10:20-0500 Diastolic blood pressure 99 mm[Hg] Gilson Tyrel Other [employer] Other 09-07-2022 10:20-0500 Respiratory rate 18 /min Gilson Tyrel Other [employer] Other 09-07-2022 10:20-0500 SaO2% (BldA) [Mass fraction] 98 % Gilson Tyrel Other [employer] Other 09-07-2022 10:20-0500 Systolic blood pressure 180 mm[Hg] Gilson Tyrel Other [employer] Other 08-04-2022 13:58-0500 Body height 158.8 cm Jayden Connelly APRN.CNP Work Phone: [facility] 08-04-2022 13:58-0500 Body temperature 97.39 [degF] Jayden Connelly [employer].EMERGENCY DEPARTMENT Work Phone: [facility] 08-04-2022 13:58-0500 Body weight 85.37 kg Jayden Connelly [employer] WORKER.EMERGENCY DEPARTMENT Work Phone: [facility] 08-04-2022 13:58-0500 Diastolic blood pressure 80 mm[Hg] Jayden Connelly [employer] SOC[employer] WORKER.EMERGENCY DEPARTMENT Work Phone: [facility] 08-04-2022 13:58-0500 Heart rate 76 /min Jayden Connelly [employer] SOCIAL WORKER.EMERGENCY DEPARTMENT Work Phone: [facility] 08-04-2022 13:58-0500 Respiratory rate 16 /min Jayden Connelly [employer] SOC[employer] WORKER.EMERGENCY DEPARTMENT Work Phone: [facility] 08-04-2022 13:58-0500 SaO2% (BldA) [Mass fraction] 98 % Jayden Connelly [employer] SOCIAL WORKER.EMERGENCY DEPARTMENT Work Phone: [facility] 08-04-2022 13:58-0500 Systolic blood pressure 149 mm[Hg] Jayden Connelly [employer] SOCIAL WORKER.EMERGENCY DEPARTMENT Work Phone: [facility] 06-23-2022 13:57-0500 Body height 158.8 cm Rinku Ramsey MD Work Phone: [facility] 06-23-2022 13:57-0500 Body temperature 97.59 [degF] Rinku Ramsey MD Work Phone: [facility] 06-23-2022 13:57-0500 Body weight 88.27 kg Rinku Ramsey MD Work Phone: [facility] 06-23-2022 13:57-0500 Diastolic blood pressure 88 mm[Hg] Rinku Ramsey MD Work Phone: [facility] 06-23-2022 13:57-0500 Heart rate 66 /min Rinku Ramsey MD Work Phone: [facility] 06-23-2022 13:57-0500 Respiratory rate 16 /min Rinku Ramsey MD Work Phone: [facility] 06-23-2022 13:57-0500 SaO2% (BldA) [Mass fraction] 100 % Rinku Ramsey MD Work Phone: [facility] 06-23-2022 13:57-0500 Systolic blood pressure 156 mm[Hg] Rinku Ramsey MD Work Phone: [facility] 05-12-2022 14:19-0400 Diastolic blood pressure 80 mm[Hg] Jayden Connelly [employer] WORKER.EMERGENCY DEPARTMENT Work Phone: [facility] 05-12-2022 14:19-0400 Systolic blood pressure 158 mm[Hg] Jayden Connelly [employer] SOCIAL WORKER.EMERGENCY DEPARTMENT Work Phone: [facility] 05-12-2022 14:13-0400 Body height 158.8 cm Jayden Connelly [employer] SOCIAL WORKER.EMERGENCY DEPARTMENT Work Phone: [facility] 05-12-2022 14:13-0400 Body temperature 97.81 [degF] Jayden Connelly [employer] SOCIAL WORKER.EMERGENCY DEPARTMENT Work Phone: [facility] 05-12-2022 14:13-0400 Body weight 88.27 kg Jayden Connelly [employer] SOCIAL WORKER.EMERGENCY DEPARTMENT Work Phone: [facility] 05-12-2022 14:13-0400 Heart rate 76 /min Jayden Connelly [employer] SOCIAL WORKER.EMERGENCY DEPARTMENT Work Phone: [facility] 05-12-2022 14:13-0400 Respiratory rate 18 /min Jayden Connelly [employer] SOCIAL WORKER.EMERGENCY DEPARTMENT Work Phone: [facility] 05-12-2022 14:13-0400 SaO2% (BldA) [Mass fraction] 98 % Jayden Connelly [employer] SOCIAL WORKER.EMERGENCY DEPARTMENT Work Phone: [facility] 03-31-2022 13:55-0400 Body height 158.8 cm Rinku Ramsey MD Work Phone: [facility] 03-31-2022 13:55-0400 Body temperature 97.7 [degF] Rinku Ramsey MD Work Phone: [facility] 03-31-2022 13:55-0400 Body weight 88.72 kg Rinku Ramsey MD Work Phone: [facility] 03-31-2022 13:55-0400 Diastolic blood pressure 83 mm[Hg] Rinku Ramsey MD Work Phone: [facility] 03-31-2022 13:55-0400 Heart rate 66 /min Rinku Ramsey MD Work Phone: [facility] 03-31-2022 13:55-0400 Respiratory rate 16 /min Rinku Ramsey MD Work Phone: [facility] 03-31-2022 13:55-0400 SaO2% (BldA) [Mass fraction] 95 % Rinku Ramsey MD Work Phone: [facility] 03-31-2022 13:55-0400 Systolic blood pressure 173 mm[Hg] Rinku Ramsey MD Work Phone: [facility] 02-11-2022 13:41-0400 Body height 158.8 cm Jayden Connelly APRN.EMERGENCY DEPARTMENT Work Phone: [facility] 02-11-2022 13:41-0400 Body temperature 97.3 [degF] Jayden Connelly APRN.EMERGENCY DEPARTMENT Work Phone: [facility] 02-11-2022 13:41-0400 Body weight 89.18 kg Jayden Connelly APRN.EMERGENCY DEPARTMENT Work Phone: [facility] 02-11-2022 13:41-0400 Diastolic blood pressure 83 mm[Hg] Jayden Connelly APRN.EMERGENCY DEPARTMENT Work Phone: [facility] 02-11-2022 13:41-0400 Heart rate 79 /min Jayden Connelly APRN.EMERGENCY DEPARTMENT Work Phone: [facility] 02-11-2022 13:41-0400 Respiratory rate 16 /min Jayden Connelly APRN.EMERGENCY DEPARTMENT Work Phone: [facility] 02-11-2022 13:41-0400 SaO2% (BldA) [Mass fraction] 99 % Jayden Connelly APRN.EMERGENCY DEPARTMENT Work Phone: [facility] 02-11-2022 13:41-0400 Systolic blood pressure 159 mm[Hg] Jayden Connelly APRN.EMERGENCY DEPARTMENT Work Phone: [facility] 12-17-2021 14:41-0400 Body height 158.8 cm Jayden Connelly APRN.EMERGENCY DEPARTMENT Work Phone: [facility] 12-17-2021 14:41-0400 Body temperature 97.3 [degF] Jayden Connelly APRN.EMERGENCY DEPARTMENT Work Phone: [facility] 12-17-2021 14:41-0400 Body weight 87.64 kg Jayden Connelly APRN.EMERGENCY DEPARTMENT Work Phone: [facility] 12-17-2021 14:41-0400 Diastolic blood pressure 80 mm[Hg] Jayden Connelly APRN.EMERGENCY DEPARTMENT Work Phone: [facility] 12-17-2021 14:41-0400 Heart rate 75 /min Jayden Connelly APRN.EMERGENCY DEPARTMENT Work Phone: [facility] 12-17-2021 14:41-0400 Respiratory rate 16 /min Jayden Connelly APRN.EMERGENCY DEPARTMENT Work Phone: [facility] 12-17-2021 14:41-0400 SaO2% (BldA) [Mass fraction] 96 % Jayden Connelly APRN.EMERGENCY DEPARTMENT Work Phone: [facility] 12-17-2021 14:41-0400 Systolic blood pressure 154 mm[Hg] Jayedn Connelly APRN.EMERGENCY DEPARTMENT Work Phone: [facility] 11-10-2021 15:00-0400 Body height 160.02 cm Gilson Arriola Other [employer] Other 11-10-2021 15:00-0400 Body mass index (BMI) [Ratio] 34.18 kg/m2 Gilson Tyrel Other [employer] Other 11-10-2021 15:00-0400 Body temperature 97.1 [degF] Gilson Tyrel Other [employer] Other 11-10-2021 15:00-0400 Body weight 87.54 kg Gilson Tyrel Other [employer] Other 11-10-2021 15:00-0400 Diastolic blood pressure 70 mm[Hg] Gilson Tyrel Other [employer] Other 11-10-2021 15:00-0400 Respiratory rate 18 /min Gilson Tyrel Other [employer] Other 11-10-2021 15:00-0400 SaO2% (BldA) [Mass fraction] 96 % Gilson Tyrel Other [employer] Other 11-10-2021 15:00-0400 Systolic blood pressure 154 mm[Hg] Gilson Tyrel Other [employer] Other 10-28-2021 11:27-0400 Body height 158.8 cm Rinku Ramsey MD Work Phone: [facility] 10-28-2021 11:27-0400 Body temperature 97.39 [degF] Rinku Ramsey MD Work Phone: [facility] 10-28-2021 11:27-0400 Body weight 87.82 kg Rinku Ramsey MD Work Phone: [facility] 10-28-2021 11:27-0400 Diastolic blood pressure 91 mm[Hg] Rinku Ramsey MD Work Phone: [facility] 10-28-2021 11:27-0400 Heart rate 75 /min Rinku Ramsey MD Work Phone: [facility] 10-28-2021 11:27-0400 Respiratory rate 16 /min Rinku Ramsey MD Work Phone: [facility] 10-28-2021 11:27-0400 SaO2% (BldA) [Mass fraction] 96 % Rinku Ramsey MD Work Phone: [facility] 10-28-2021 11:27-0400 Systolic blood pressure 157 mm[Hg] Rinku Ramsey MD Work Phone: [facility] Encounters Encounter Date Encounter Type Care Provider Facility Start: 04-11-2025 End: 04-11-2025 ambulatory JAYDEN CONNELLY Facility:[facility] Start: 04-02-2025 End: 04-02-2025 Bamboo flowsheet Mar Mayo MD Work Phone: [facility] Start: 04-02-2025 End: 04-02-2025 Bamjanio flowsheet Mar Mayo MD Work Phone: [facility] Start: 04-02-2025 End: 04-02-2025 Telephone encounter Mar Mayo MD Work Phone: [facility] Comment on above: insurance won't cove r rx Start: 04-02-2025 End: 04-02-2025 Office outpatient visit 15 minutes Mar Mayo MD Work Phone: [facility] Comment on above: Thyroid nodule (Prim bradley Dx) Start: 04-02-2025 End: 04-02-2025 ambulatory MAR MAYO Not Available Start: 03-28-2025 End: 03-28-2025 ambulatory RINKU RAMSEY Facility:[facility] Start: 03-19-2025 End: 03-19-2025 Clinisync Result Encounter Mar Mayo MD Work Phone: [facility] External Department Unsolicited Start: 03-19-2025 End: 03-19-2025 Clinisync Result Encounter Mar Mayo MD Work Phone: [facility] External Department Unsolicited Start: 03-14-2025 End: 03-14-2025 ambulatory [facility]/[place] Work Phone: Hematology/Oncology Comment on above: 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 deficiency (Primary Dx); Abnormal weight loss; Other systemic lupus erythematosus with other organ involvement (HCC); Thrombocytopenia; Chronic ITP (idiopathic thrombocytopenia) (HCC); 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) Start: 03-13-2025 End: 03-13-2025 ambulatory Stephanie Dumont Work Phone: [facility] Work Phone: Start: 03-13-2025 End: 03-13-2025 Patient encounter procedure Stephanie Dumont [employer] Work Phone: Start: 02-14-2025 End: 02-14-2025 Patient encounter procedure Jayden Connelly APRN.CNP Work Phone: Hematology/Oncology Start: 02-14-2025 End: 02-14-2025 ambulatory Jayden Connelly APRN.CNP Work Phone: Hematology/Oncology Comment on above: 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 deficiency (Primary Dx); 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); Thrombocytopenia; Chronic ITP (idiopathic thrombocytopenia) (HCC); Essential hypertension; Obstructive sleep apnea syndrome; Abdominal aortic aneurysm (AAA) without rupture, unspecified part Start: 02-05-2025 End: 02-05-2025 ambulatory SUSANNA GRAF [facility] Start: 02-05-2025 End: 02-05-2025 Subsequent hospital visit by physician Susanna Graf MD Work Phone: [facility] [place] Comment on above: Cholesteatoma of lef t ear (Primary Dx); 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 Start: 01-31-2025 End: 01-31-2025 ambulatory Lab/[place] Work Phone: Hematology/Oncology Comment on above: 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 c hronic kidney disease (HCC) (Primary Dx) Start: 01-28-2025 End: 01-28-2025 Telephone encounter Desirae Pimentel RN Hematology/Oncology Comment on above: Lab Orders Start: 01-27-2025 End: 01-27-2025 ambulatory Stephanie Dumont Work Phone: [facility] Work Phone: Start: 01-27-2025 End: 01-27-2025 Patient encounter procedure Gilson Arriola MD -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 deficiency (Primary Dx); Abnormal weight loss; Other systemic lupus erythematosus with other organ involvement (HCC); Thrombocytopenia; Chronic ITP (idiopathic thrombocytopenia) (HCC); 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) Start: 01-15-2025 End: 01-15-2025 Office outpatient visit 15 minutes Stephanie Dumont NP Work Phone: [facility] Comment on above: Weakness of both leg s (Primary Dx); Chronic kidney disease, stage 3b ([facility]); Obesity (BMI 30-39.9); Tobacco dependence; Lumbar spondylosis Start: 01-15-2025 End: 01-15-2025 ambulatory STEPHANIE TREVORJenniferHOLRuben Not Available Start: 01-15-2025 End: 01-15-2025 Bamboo flowsheet Stephanie Maruben [employer] Work Phone: [facility] Start: 01-15-2025 End: 01-15-2025 Bamboo flowsheet Stephanie Maruben [employer] Work Phone: [facility] Start: 01-15-2025 End: 01-15-2025 Clinisync Result Encounter Stephanie Forderichi [employer] Work Phone: [facility] External Department Unsolicited Start: 01-06-2025 End: 01-06-2025 Bamboo flowsheet Stephanie Forderichi [employer] Work Phone: [facility] Start: 01-06-2025 End: 01-06-2025 Bamboo flowsheet Stephanie Forderichi [employer] Work Phone: [facility] Start: 01-06-2025 End: 01-06-2025 Transitional care manage srvc 14 day discharge Stephanie Forderichi [employer] Work Phone: [facility] Comment on above: DARYL (acute kidney in jury) (Primary Dx); Essential hypertension ; Chronic kidney disease, stage 3b (CMS-HCC); Diarrhea, unspecified type; Tobacco dependence Start: 01-06-2025 End: 01-06-2025 ambulatory STEPHANIE TREVORJenniferHOLZ Not Available Start: 01-03-2025 End: 01-03-2025 Patient [...] B12 deficiency; Thrombocytopenia; Chronic ITP (idiopathic thrombocytopenia) (HCC) Start: 01-01-2025 End: 01-01-2025 Refill Stephanie Dumont [employer] Work Phone: [facility] Comment on above: Age-related osteopor osis without current pathological fracture (Primary Dx) Start: 12-31-2024 End: 12-31-2024 Refill Stephanie Dumont [employer] Work Phone: [facility] Comment on above: Coronary artery dise ase involving mohegan coronary artery of mohegan heart without angina pectoris Start: 12-25-2024 End: 12-25-2024 Bamboo flowsheet Stephanie Dumont [employer] Work Phone: [facility] Start: 12-25-2024 End: 12-27-2024 Bamboo flowsheet Stephanie Dumont [employer] Work Phone: [facility] Start: 12-25-2024 End: 12-27-2024 Clinisync Result Encounter Generic External Data Provider [facility] External Department Unsolicited Start: 12-25-2024 End: 12-25-2024 Office outpatient visit 25 minutes Stephanie Dumont [employer] Work Phone: [facility] Comment on above: Diarrhea, unspecifie d type (Primary Dx); Chronic kidney disease, stage 3b ([facility]HCC); 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 ; Essential hypertension ; Obesity (BMI 30-39.9); Pre-diabetes; Chronic ITP (idiopathic thrombocytopenia) ([facility]); Tobacco dependence; Thyroid nodule Start: [...] (HCC) Start: 12-18-2024 End: 12-18-2024 ambulatory SUSANNA GRAF [facility] Start: 12-18-2024 Encounter for other preprocedural examination [facility] Start: 12-12-2024 End: 12-12-2024 Clinisync Result Encounter Stephanie Fordeernestinaruben [employer] Work Phone: [facility] External Department Unsolicited Start: 12-12-2024 End: 12-12-2024 Clinisync Result Encounter Stephanie Dumont [employer] Work Phone: [facility] External Department Unsolicited Start: 2024 End: 2024 ambulatory Lab/[place] Work Phone: Hematology/Oncology Comment on above: 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 c hronic kidney disease (HCC) (Primary Dx) Start: 11-26-2024 End: 11-26-2024 Office outpatient visit 25 minutes Susanna Graf MD Work Phone: [facility] Comment on above: Cholesteatoma of lef t ear (Primary Dx); 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; Preoperative clearance; Thrombocytopenia Start: 11-26-2024 End: 11-26-2024 Preoperative state Susanna Graf MD Work Phone: [facility] Start: 11-26-2024 End: 11-26-2024 ambulatory [facility] Start: 11-22-2024 End: 11-22-2024 Nursing evaluation of patient and report Ma Nurse Clarence Gaona Work Phone: Hematology/Oncology Comment on above: 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 deficiency (Primary Dx); Thrombocytopenia; Abnormal weight loss; Chronic ITP (idiopathic thrombocytopenia) (HCC) Start: 11-22-2024 End: 11-22-2024 ambulatory RINKU RAMSEY Facility:[facility] Start: 11-22-2024 End: 11-22-2024 Office outpatient visit 25 minutes Rinku Ramsey MD Work Phone: Hematology/Oncology Comment on above: Chronic ITP (idiopat hic thrombocytopenia) (HCC) (Primary Dx); Stage 3b chronic kidney disease (HCC); 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); 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 deficiency; Systemic lupus erythematosus, unspecified SLE type, unspecified organ involvement status ([facility]) Start: 11-22-2024 End: 11-22-2024 ambulatory [facility] Facility:[facility] Start: 11-06-2024 End: 11-07-2024 Social Work Katheryn CLIFTONW Hematology/Oncology Start: 10-11-2024 End: 10-11-2024 Nursing evaluation of patient and report Ma [...] (Primary Dx); Thrombocytopenia Start: 10-11-2024 End: 10-11-2024 [facility] Facility:[facility] Start: 10-07-2024 End: 10-07-2024 Refill Stephanie Dumont NP Work Phone: [facility] Comment on above: Coronary artery dise ase involving mohegan coronary artery of mohegan heart without angina pectoris ([facility]/HCC) Start: 09-25-2024 End: 09-25-2024 ambulatory MAR H [...] (HCC) Start: 08-30-2024 End: 08-30-2024 ambulatory RINKU RAMSEY Facility:[facility] Start: 08-21-2024 End: 08-21-2024 ambulatory [facility] Work Phone: Start: 08-21-2024 End: 08-21-2024 Patient encounter procedure [facility] Physician [facility] [place] Work Phone: Start: 08-15-2024 End: 08-15-2024 Bamboo flowsheet Stephanie Dumont [employer] Work Phone: [facility] Start: 08-15-2024 End: 08-15-2024 Bamboo flowsheet Stephanie Dumont [employer] Work Phone: [facility] Start: 08-15-2024 End: 08-15-2024 Office outpatient visit 25 minutes Stephanie Dumont NP Work Phone: [facility] Comment on above: Essential hypertensi on (CMS/HCC) (Primary Dx); Systemic lupus erythematosus, unspecified (CMS/HCC); Qualitative platelet defects (CMS/HCC); Chronic kidney disease, stage 3a (HCC) (CMS/HCC); Immune thrombocytopenic purpura (CMS/HCC); Secondary pulmonary arterial hypertension (CMS/HCC); 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 (CMS/HCC); PAH (pulmonary artery hypertension) (CMS/HCC); Obesity (BMI 30-39.9); Pre-diabetes; Tobacco dependence; Multiple lung nodules on CT; Family history of cancer Start: 08-15-2024 End: 08-15-2024 ambulatory STEPHANIE DUMONT Not Available Start: 08-12-2024 End: 08-12-2024 ambulatory GILSON ARRIOLA [facility] Start: 07-23-2024 End: 07-31-2024 Telephone encounter Krista Harden [facility] Work Phone: [facility] Comment on above: Medication Assistanc e Program; Medication Authorization ([employer] APPROVED) Start: 07-22-2024 End: 07-22-2024 ambulatory Krista Harden [facility] Work Phone: [facility] Start: 07-22-2024 End: 07-22-2024 E-mail encounter from caregiver Krista Harden [facility] Work Phone: [facility] Start: 07-19-2024 End: 07-19-2024 Refill Jayden Connelly APRN.EMERGENCY DEPARTMENT Work Phone: Hematology/Oncology Comment on above: Refill Request Start: 07-18-2024 End: 07-18-2024 ambulatory MASSIEL BALLARD [facility] Start: 07-11-2024 End: 07-11-2024 Nursing evaluation of patient and report Debora Gaona Work Phone: Hematology/Oncology Comment on above: 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 deficiency (Primary Dx); Thrombocytopenia (HCC); Abnormal weight loss; Chronic ITP (idiopathic thrombocytopenia) (HCC) Start: 07-11-2024 End: 07-11-2024 Office outpatient visit 25 minutes Li Frank APRN.EMERGENCY DEPARTMENT Work Phone: Hematology/Oncology Comment on above: 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 deficiency (Primary Dx); Chronic ITP (idiopathic thrombocytopenia) (HCC) Start: 07-11-2024 End: 07-11-2024 ambulatory RINKU RAMSEY Facility:[facility] Start: 05-31-2024 ambulatory MASSIEL BALLARD [facility] Start: 05-30-2024 End: 05-30-2024 Nursing evaluation of [...] Start: 05-30-2024 End: 05-30-2024 ambulatory RINKU RAMSEY Facility:[facility] Start: 05-29-2024 End: 05-29-2024 Orders Only Stephanie Dumont [employer] Work Phone: [facility] Comment on above: Multiple lung nodule s on CT (Primary Dx) Start: 05-28-2024 End: 05-28-2024 Orders Only Stephanie Dumont [employer] Work Phone: [facility] Comment on above: Multiple lung nodule s on CT (Primary Dx) Start: 05-24-2024 End: 05-24-2024 Telephone encounter Stephanie Dumont [employer] Work Phone: [facility] Start: 05-23-2024 End: 05-23-2024 Telephone encounter Stephanie Dumont [employer] Work Phone: [facility] Start: 05-21-2024 End: 05-21-2024 ambulatory DOUG Sheikh [facility] Start: 05-15-2024 End: 05-15-2024 Office outpatient visit 25 minutes Mar Mayo MD Work Phone: [facility] Comment on above: Hyperthyroidism (CMS /HCC) (Primary Dx); Thyroid nodule (CMS/HCC) Start: 05-15-2024 End: 05-15-2024 Orders Only Stpehanie Dumont [employer] Work Phone: [facility] Comment on above: Multiple lung nodule s on CT (Primary Dx) Start: 05-14-2024 End: 05-14-2024 Patient encounter procedure Stephanie Tim [employer] Work Phone: [facility] Comment on above: Encounter for subseq uent annual wellness visit (AWV) in Medicare patient (Primary Dx); Tobacco dependence; Pre-diabetes; Obesity (BMI 30-39.9); Age-related osteoporosis without current pathological fracture ([facility]/HCC); 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 ([facility]); Essential hypertension ([facility]) Start: 05-14-2024 End: 05-14-2024 ambulatory STEPHANIE DUMONT Not Available Start: 05-13-2024 End: 05-13-2024 Taym Avalos DO Work Phone: [facility] Start: 05-13-2024 End: 05-13-2024 Bamlanre Avalos DO Work Phone: [facility] Start: 05-13-2024 End: 05-13-2024 ambulatory HERSON HIGGINS Not Available Start: 05-13-2024 End: 05-13-2024 Office outpatient visit 25 minutes Jr. Herson Avalos DO Work Phone: [facility] Comment on above: Left leg pain (Prima ry Dx); Lumbar pain; Weakness of left lower extremity Start: 05-09-2024 End: 05-09-2024 ambulatory [facility]ANIE [facility]aden [facility] Start: 05-09-2024 End: 05-09-2024 ambulatory STEPHANIE Caden [facility] Start: 05-07-2024 End: 05-07-2024 Orders Only Stephanie Dumont [employer] Work Phone: [facility] Comment on above: Multiple lung nodule s on CT (Primary Dx) Start: 05-02-2024 End: 05-02-2024 ambulatory BLAISE ALEX [facility] Start: 05-02-2024 End: 05-02-2024 ambulatory BLAISE ALEX [facility] Start: 04-25-2024 End: 04-25-2024 Telephone encounter Stephanie Dumont [employer] Work Phone: [facility] Start: 04-24-2024 End: 04-24-2024 Office outpatient visit 25 minutes Stephanie Dumont [employer] Work Phone: [facility] Comment on above: Thyroid nodule (CMS/ HCC) (Primary Dx); Immune thrombocytopenic purpura (CMS/HCC); 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 (CMS/HCC); Pre-diabetes; Obesity [...] End: 04-18-2024 Office outpatient visit 15 minutes Rinuk Ramsey MD Work Phone: Hematology/Oncology Comment on above: Hyperglycemia (Prima ry Dx); Chronic ITP (idiopathic thrombocytopenia) (HCC); 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 deficiency; Obstructive sleep apnea syndrome Start: 04-18-2024 End: 04-18-2024 ambulatory RINKU RAMSEY Facility:[facility] Start: 04-17-2024 End: 04-17-2024 [facility] Start: 04-16-2024 End: 04-16-2024 ambulatory Simon Zuniga [facility] Work Phone: Start: 04-16-2024 End: 04-16-2024 Departed Referred MD Simon Zuniga Work Phone: [facility] Start: 04-10-2024 End: 04-10-2024 Refill Stephanie Dumont [employer] Work Phone: [facility] Comment on above: Coronary artery dise ase involving mohegan coronary artery of mohegan heart without angina pectoris (CMS/HCC) Start: 04-09-2024 End: 04-09-2024 Telephone encounter Desirae Pimentel RN Hematology/Oncology Comment on above: Thyroid fine needle biopsy at [facility] Start: 04-09-2024 End: 04-09-2024 ambulatory BLAISE ALEX Not Available Start: 04-09-2024 End: 04-09-2024 ambulatory BLAISE ALEX Not Available Start: 04-09-2024 End: 04-09-2024 Office outpatient visit 25 minutes Blaise Alex PA Work Phone: [facility] Comment on above: Left leg pain (Prima ry Dx) Start: 04-05-2024 End: 04-05-2024 Orders Only Stephanie Dumont [employer] Work Phone: [facility] Comment on above: Disease of thyroid g land (CMS/HCC) (Primary Dx) Start: 04-05-2024 End: 04-05-2024 Patient encounter procedure [facility] Provider [facility] Department Start: 04-04-2024 End: 04-04-2024 Bamboo flowsheet Stephanie Dumont [employer] Work Phone: [facility] Start: 04-04-2024 End: 04-04-2024 External Result Encounter Stephanie Dumont NP Work Phone: [facility] External Department Unsolicited Start: 04-04-2024 End: 04-04-2024 External Result Encounter Stephanie Dumont [employer] Work Phone: [facility] External Department Unsolicited Start: 04-04-2024 End: 04-04-2024 ambulatory STEPHANIE DUMONT [facility] Start: 04-04-2024 End: 04-04-2024 Office outpatient visit 25 minutes Stephanie Dumont NP Work Phone: [facility] Comment on above: Coronary artery dise ase involving mohegan coronary artery of mohegan heart without angina pectoris (CMS/HCC) (Primary Dx); Elevated glucose level; Essential hypertension (CMS/HCC); Encounter for screening mammogram for malignant neoplasm of breast; Other chest pain; Disease of thyroid gland (CMS/HCC); Obesity (BMI 30-39.9); Posterior left knee pain Start: 04-02-2024 End: 04-05-2024 Refill Krista Harden [facility] Work Phone: [facility] Comment on above: Refill Request Coronary artery dise ase involving mohegan coronary artery of mohegan heart without angina pectoris (CMS/HCC) Start: 03-27-2024 End: 03-27-2024 Orders Only Stephanie Dumont NP Work Phone: [facility] Comment on above: Obstructive sleep ap emory syndrome (Primary Dx); PAH (pulmonary artery hypertension) (CMS/HCC) Start: 03-05-2024 End: 03-05-2024 Nursing evaluation of patient and report Tx Nurse Clarence Gaona Work Phone: Hematology/Oncology Comment [...] 03-04-2024 End: 03-04-2024 Bamboo flowsheet Stephanie Dumont NP Work Phone: [facility] Start: 03-04-2024 End: 03-04-2024 Bamboo flowsheet Stephanie Dumont NP Work Phone: [facility] Start: 03-04-2024 End: 03-04-2024 Office outpatient visit 25 minutes Stephanie Dumont NP Work Phone: [facility] Comment on above: Coronary artery dise ase involving mohegan coronary artery of mohegan heart without angina pectoris (CMS/HCC) (Primary Dx); Calcification of aortic valve; Essential hypertension (CMS/HCC); Thyroid nodule (CMS/HCC) Start: 03-01-2024 End: 03-01-2024 ambulatory STEPHANIE DUMONT [facility] Start: 02-26-2024 End: 02-26-2024 Orders Only Stephanie Dumont NP Work Phone: [facility] Comment on above: Thyroid nodule (CMS/ HCC) (Primary Dx); Calcification of aortic valve; 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 (CMS/HCC) Start: 02-12-2024 Non-patient / Non-visit MD Weathers Work Phone: [facility] Work Phone: Start: 02-06-2024 End: 02-06-2024 ambulatory [facility] Ambulatory Start: 02-02-2024 End: 02-02-2024 [...] original px Emani Gutiérrez MD Work Phone: [facility] Comment on above: Cholesteatoma of lef t ear (Primary Dx); Encounter for postoperative care Start: 01-02-2024 End: 01-02-[address] [facility] Amb[facility] Start: 12-18-2023 End: 12-18-2023 Preoperative state Susanna Graf MD Work Phone: [facility] Start: 12-18-2023 End: 12-18-2023 Subsequent hospital visit by physician Susanna Graf MD Work Phone: [facility] [place] Comment on above: Cholesteatoma of lef t ear (Primary Dx); Preoperative clearance; Post-operative pain Start: 12-15-2023 End: 12-15-2023 Nursing evaluation of patient and report Debora Gaona Work Phone: Hematology/Oncology Comment on above: Preoperative examina tion (Primary Dx) Start: 12-15-2023 End: 12-15-2023 Preprocedural examination done Debora Gaona Work Phone: [facility] Start: 11-28-2023 Telephone encounter Emilia holder RN Work Phone: Hematology/Oncology Comment on above: Call Request Start: 11-24-2023 End: 11-24-2023 Office outpatient visit 25 minutes Rinku Ramsey MD Work Phone: Hematology/Oncology Comment on above: Chronic ITP (idiopat hic thrombocytopenia) (HCC) (Primary Dx); Stage 3b chronic kidney disease (HCC); Secondary hypertension; Obstructive sleep apnea syndrome Start: 11-14-2023 End: 11-14-2023 Subsequent hospital visit by physician Kely [id number] [facility] Comment on above: Cholesteatoma of lef t ear Start: 11-14-2023 End: 11-14-2023 Office outpatient new 45 minutes Susanna Graf MD Work Phone: [facility] Comment on above: Cholesteatoma of lef t [...] End: 08-28-2023 Office outpatient visit 15 minutes Riknu Ramsey MD Work Phone: Hematology/Oncology Comment on [...] [facility] [place] Start: 08-16-2023 Bamboo flowsheet Karissa A McG [...] 15 minutes Gilson Tyrel [facility] [place] Start: 06-28-2023 End: 06-28-2023 ambulatory Gilson Tyrel [facility] Other Start: 06-05-2023 End: 06-05-2023 ambulatory Ana Hernandez PA-C Work Phone: Hematology/Oncology Comment on above: Chronic ITP (idiopat hic thrombocytopenia) (HCC) (Primary Dx); Essential hypertension; Hypertension, unspecified type Start: 06-05-2023 End: 06-05-2023 Patient encounter procedure Ana Hernandez PA-C Work Phone: [facility] Start: 05-01-2023 Refill Krista Calvo [facility] Work Phone: Hematology/Oncology Comment on above: Refill Request Start: 04-20-2023 End: 04-20-2023 Office outpatient visit 25 minutes Rinku Ramsey MD Work Phone: Hematology/Oncology Comment on above: Chronic ITP (idiopat hic thrombocytopenia) (HCC) (Primary Dx); Essential hypertension Start: 04-19-2023 Telephone encounter Rinku ihcks MD Work Phone: Hematology/Oncology Comment on above: Lab Orders Start: 04-05-2023 End: 04-05-2023 ambulatory Gilson Tyrel Other [facility] Other Start: 04-05-2023 Telephone encounter Gilson Tyrel [facility] Start: 03-14-2023 End: 03-14-2023 ambulatory Gilson Tyrel Other [facility] Other Start: 03-14-2023 Telephone encounter Gilson Tyrel [...] 09-07-2022 End: 09-07-2022 ambulatory Gilson Arriola Other [facility] Other Start: 09-07-2022 Office outpatient vi sit 25 minutes Krzysztof [facility]ERRERA [facility] [place] Start: 08-29-2022 End: 08-29-2022 ambulatory NON STAFF [facility] Work Phone: Start: 08-29-2022 End: 08-29-2022 Patient encounter procedure MD Gilson Arriola Work Phone: [facility] [place] Work Phone: Start: 08-15-2022 Refill Jayden Connelly APRN.EMERGENCY DEPARTMENT Work Phone: Hematology/Oncology Comment on above: Refill Request Start: 08-05-2022 Refill Jayden Connelly APRN.EMERGENCY DEPARTMENT Work Phone: Hematology/Oncology Comment on above: Refill Request Start: 08-04-2022 End: 08-04-2022 ambulatory Jayden Connelly APRN.EMERGENCY DEPARTMENT Work Phone: Hematology/Oncology Comment on above: Chronic ITP (idiopat hic thrombocytopenia) (HCC) (Primary Dx); Obstructive sleep apnea syndrome; Hypertension, unspecified type; Systemic lupus erythematosus, unspecified SLE type, unspecified organ involvement status (HCC); Malaise and fatigue; Skin lesion of right lower extremity Start: 08-04-2022 End: 08-04-2022 Patient encounter procedure Jayden Connelly APRN.EMERGENCY DEPARTMENT Work Phone: [facility] Start: 08-04-2022 Telephone encounter Jayden christiansen APRN.EMERGENCY DEPARTMENT Work Phone: [facility] Comment on above: Referral Information (Dermatology) Start: 07-24-2022 Refill Jayden Connelly APRN.EMERGENCY DEPARTMENT Work Phone: Hematology/Oncology Comment on above: Refill [...] Refill Request Start: 06-15-2022 Refill Jayden Connelly APRN.EMERGENCY DEPARTMENT Work Phone: Hematology/Oncology Comment on above: Refill Request Start: 05-20-2022 Refill Rinku lawrence MD Work Phone: Hematology/Oncology Comment on above: Refill Request Start: 05-12-2022 End: 05-12-2022 ambulatory Jayden Connelly APRN.EMERGENCY DEPARTMENT Work Phone: Hematology/Oncology Comment on above: Chronic ITP (idiopat hic thrombocytopenia) (HCC) (Primary Dx); Obstructive sleep apnea syndrome; Essential hypertension Start: 05-12-2022 End: 05-12-2022 Patient encounter procedure Jayden Connelly APRN.EMERGENCY DEPARTMENT Work Phone: [facility] Start: 04-24-2022 Refill Jayden Connelly APRN.EMERGENCY DEPARTMENT Work Phone: Hematology/Oncology Comment on above: Refill [...] Refill Request Start: 03-05-2022 Refill Jayden Connelly [employer] SOCIAL WORKER.EMERGENCY DEPARTMENT Work Phone: Hematology/Oncology Comment on above: Refill Request Start: 02-11-2022 End: 02-11-2022 ambulatory Jayden Connelly [employer] SOCIAL WORKER.EMERGENCY DEPARTMENT Work Phone: Hematology/Oncology Comment on above: Chronic ITP (idiopat hic thrombocytopenia) (HCC) (Primary Dx); Essential hypertension; Obstructive sleep apnea syndrome; Systemic lupus erythematosus, unspecified SLE type, unspecified organ involvement status (HCC) Start: 02-11-2022 End: 02-11-2022 Patient encounter procedure Jayden Connelly [employer] SOCIAL WORKER.EMERGENCY DEPARTMENT Work Phone: [facility] Start: 02-03-2022 Refill Jayden Connelly [employer]ION SOCIAL WORKER.EMERGENCY DEPARTMENT Work Phone: Hematology/Oncology Comment on above: Refill Request Start: 01-15-2022 Refill Jayden Connelly APRN.EMERGENCY DEPARTMENT Work Phone: Hematology/Oncology Comment on above: Refill Request Start: 01-09-2022 Refill Jayden Connelly [employer] SOCIAL WORKER.EMERGENCY DEPARTMENT Work Phone: Hematology/Oncology Comment on above: Refill Request Start: 12-17-2021 End: 12-17-2021 ambulatory Jayden Connelly [employer] PRE[employer]ION SOCIAL WORKER.EMERGENCY DEPARTMENT Work Phone: Hematology/Oncology Comment on above: Chronic ITP (idiopat hic thrombocytopenia) (HCC) (Primary Dx); Hypertension, unspecified type; Essential hypertension; Obstructive sleep apnea syndrome; Lung nodules; Systemic lupus erythematosus, unspecified SLE type, unspecified organ involvement status (HCC) Start: 12-17-2021 End: 12-17-2021 Patient encounter procedure Jayden Connelly APRN.EMERGENCY DEPARTMENT Work Phone: [facility] Start: 11-10-2021 End: 11-10-2021 ambulatory Gilson Arriola Other [employer] Other Start: 11-10-2021 Office outpatient ne w 45 minutes Gilson Arriola [facility] [place] Start: 10-28-2021 End: 10-28-2021 ambulatory Rinku Ramsey MD Work Phone: Hematology/Oncology Comment on above: Chronic ITP (idiopat hic thrombocytopenia) (HCC) (Primary Dx); Essential hypertension; Obstructive sleep apnea syndrome; Lung nodules; Systemic lupus erythematosus, unspecified SLE type, unspecified organ involvement status (HCC) Start: 10-28-2021 End: 10-28-2021 Patient encounter procedure Rinku Ramsey MD Work Phone: [facility] Start: 10-25-2021 ambulatory [facility] Comment on above: Population Health Na vigation Outreach (ACO PCP) Start: 10-19-2021 Refill Jayden Connelly APRN.CNP Work Phone: Hematology/Oncology Comment on above: Refill Request Start: 05-07-2021 Telephone encounter Luanne Salcedo [facility] Work Phone: [facility] Comment on above: Medication Follow-up ([place] free drug application faxed) Start: 05-24-2016 End: 05-25-2016 Ambulatory COTY WRIGHT Facility:[facility] Procedures Date Procedure Procedure Detail Performing Clinician Start: 03-19-2025 Us soft tissue head & neck real time imge docm Mar Mayo MD Work Phone: Start: 02-05-2025 PULSE OXIMETRY, CONTINUOUS Fran Mahoney MD Work Phone: Start: 01-15-2025 XR LUMBAR SPINE 2 OR 3V Stephanie Duomnt [employer] Work Phone: Start: 12-25-2024 E COLI SHIGA TOXIN EIA Generic External Data Provider Start: 12-25-2024 Hemoglobin glycosylated a1c Stephanie Dumont [employer] Work Phone: Start: 12-12-2024 CT CHEST WO CON Stephanie sarmiento [employer] Work Phone: Start: 09-17-2024 Us soft tissue head & neck real time imge docm Generic External Data Provider Start: 05-13-2024 Radex spine lumbosac ral 2/3 views Jr. Herson Wynnanic DO Work Phone: Start: 04-17-2024 Mammography Stephanie feldman [employer] Work Phone: Start: 04-04-2024 Urnls dip stick/tabl et rgnt non-auto w/o micrscp Stephanie Dumont [employer] Work Phone: Start: 12-18-2023 PULSE OXIMETRY, CONTINUOUS [...] Work Phone: Start: 07-25-2022 Colonoscopy Jayden christiansen [employer]IN[employer] PRE[employer]ION SOCIAL WORKER.EMERGENCY DEPARTMENT Work Phone: Start: 02-11-2022 Adult depression scr eening assessment Jayden Connelly DELINQUENCY PREVENTION SOCIAL WORKER.EMERGENCY DEPARTMENT Work Phone: Start: 08-05-2021 Adult depression scr eening assessment Jayden Connelly DELINQUENCY PREVENTION SOCIAL WORKER.EMERGENCY DEPARTMENT Work Phone: Start: 03-30-2017 Lipid 1996 panel - S henok or Plasma Rinku Ramsey MD Work Phone: Plan of Treatment Date Care Activity Detail Author Start: 07-25-2032 Screening for malignant neoplasm of colon [facility] Start: 02-15-2028 Diabetes Screening Diabetes Screening [facility] Start: 01-21-2028 Diabetes Screening Diabetes Screening [facility] Start: 01-04-2028 Diabetes Screening Diabetes [facility]ening [facility] Start: 12-07-2027 Diabetes Screening Diabetes Screening Lau [...] Diabetes Screening Diabetes Screening [facility] Start: 03-14-2026 Complete blood count Hemoglobin/Hematocrit [facility] Start: 03-09-2026 DIABETES SCREEN DIABETES SCREEN [facility] Start: 03-09-2026 Diabetes Screening Diabetes Screening [facility] Start: 02-14-2026 Complete blood count Hemoglobin/Hematocrit [facility] Start: 02-14-2026 Creatinine measurement Serum Creatinine [facility] Start: 01-31-2026 Complete blood count Hemoglobin/Hematocrit [facility] Start: 01-26-2026 DIABETES SCREEN DIABETES SCREEN [facility] Start: 01-20-2026 Creatinine measurement Serum Creatinine [facility] Start: 01-17-2026 Complete blood count Hemoglobin/Hematocrit [facility] Start: 01-03-2026 Complete blood count Hemoglobin/Hematocrit [facility] Start: 01-03-2026 Creatinine measurement Serum Creatinine [facility] Start: 12-20-2025 Complete blood count Hemoglobin/Hematocrit [facility] Start: 12-15-2025 DIABETES SCREEN DIABETES SCREEN [facility] Start: 2025 Complete blood count Hemoglobin/Hematocrit [facility] Start: 2025 Creatinine measurement Serum Creatinine [facility] Start: 11-22-2025 Complete blood count Hemoglobin/Hematocrit [facility] Start: 11-22-2025 Creatinine measurement Serum Creatinine [facility] Start: 10-27-2025 DIABETES SCREEN DIABETES SCREEN [facility] Start: 10-01-2025 End: 10-01-2025 Patient encounter procedure 10/01/2025 11:10 AM EDT Office Visit [facility] [address] [place] [address] Mar Mayo MD [address] [place] [address] [facility] Start: 09-15-2025 DIABETES SCREEN DIABETES SCREEN [facility] Start: 08-30-2025 BP Controlled (<130/80) BP Controlled (<130/80) [facility] Start: 08-04-2025 DIABETES SCREEN DIABETES SCREEN [facility] Start: 06-23-2025 DIABETES SCREEN DIABETES SCREEN [facility] Start: 05-14-2025 Medicare Annual Wellness (AWV) Medicare Annual Wellness (AWV) [facility] Start: 05-12-2025 DIABETES SCREEN DIABETES SCREEN [facility] Start: 04-23-2025 End: 04-23-2025 Patient encounter procedure 04/23/2025 11:10 AM EDT Office Visit [facility] [address] [place] [address] Mar Mayo MD [address] [facility] [address] [place] [address] [facility] Start: 04-18-2025 Hemoglobin A1c measurement Diabetes: Hemoglobin A1C [facility] Start: 04-17-2025 Screening for malignant neoplasm of breast [facility] Start: 04-02-2025 End: 04-02-2025 Patient encounter procedure [facility] Comment on above: Arrived Start: 03-31-2025 DIABETES SCREEN DIABETES SCREEN [facility] Start: 03-28-2025 End: 03-28-2025 Follow-up encounter Hematology/Oncology Comment on above: 6 week follow up, labs, B12 & Aranesp Start: 03-28-2025 End: 03-28-2025 Patient encounter procedure 03/28/2025 1:45 PM EDT Office Visit [facility] [address] [address] 6 week follow up, labs, B12 & Aranesp [facility] Comment on above: 6 week follow up, labs, B12 & Aranesp Start: 03-14-2025 End: 03-14-2025 Follow-up encounter 03/14/2025 2:30 PM EDT [facility] Hematology/Oncology [address] [place] [address] 6 week follow up, labs, B12 & Aranesp Hematology/Oncology Comment on above: 6 week follow up, labs, B12 & Aranesp Start: 03-14-2025 End: 03-14-2025 Patient encounter procedure 03/14/2025 2:15 PM EDT Office Visit [facility] [address] [place] [address] 6 week follow up, labs, B12 & Aranesp [facility] Comment on above: 6 week follow up, labs, B12 & Aranesp Start: 03-13-2025 End: 03-13-2025 Patient encounter procedure 03/13/2025 10:00 AM EDT Office Visit [facility] [address] [place] [address] Stephanie Dumont NP [address] [place] [phone] [facility] Start: 03-10-2025 Influenza vaccination Influenza Vaccine (#1) [facility] Start: 03-05-2025 BP Controlled (<130/80) BP Controlled (<130/80) [facility] Start: 02-25-2025 End: 02-25-2025 Patient encounter procedure 02/25/2025 10:00 AM EDT Office Visit [facility] [address] [place] [id number] [place] [address] [place] [address] [facility] Start: 02-15-2025 End: 05-17-2025 CBC W Auto Differential panel - Blood COMPLETE BLOOD COUNT AND DIFFERENTIAL Lab Routine Malaise and fatigue 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) 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 deficiency Thrombocytopenia Chronic ITP (idiopathic thrombocytopenia) (HCC) Expected: 02/15/2025, Expires: 05/17/2025 [facility] Work Phone: Comment on above: Expected: 02/15/2025, Expires: Start: 02-15-2025 End: 05-17-2025 Cobalamin (Vitamin B12) [Mass/volume] in Serum or Plasma VITAMIN B12 Lab Routine Malaise and fatigue 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) 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 deficiency Thrombocytopenia Chronic ITP (idiopathic thrombocytopenia) (HCC) Expected: 02/15/2025, Expires: 05/17/2025 [facility] Comment on above: Expected: 02/15/2025, Expires: Start: 02-15-2025 End: 05-17-2025 Comprehensive metabolic 2000 panel - Serum or Plasma COMPREHENSIVE METABOLIC PANEL Lab Routine Malaise and fatigue 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) 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 deficiency Thrombocytopenia Chronic ITP (idiopathic thrombocytopenia) (HCC) Expected: 02/15/2025, Expires: 05/17/2025 [facility] Comment on above: Expected: 02/15/2025, Expires: Start: 02-15-2025 End: 05-17-2025 Ferritin [Mass/volume] in Serum or Plasma FERRITIN Lab Routine Malaise and fatigue 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) 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 deficiency Thrombocytopenia Chronic ITP (idiopathic thrombocytopenia) (HCC) Expected: 02/15/2025, Expires: 05/17/2025 [facility] Comment on above: Expected: 02/15/2025, Expires: Start: 02-15-2025 End: 05-17-2025 Iron and Iron binding capacity panel - Serum or Plasma IRON AND TIBC Lab Routine Malaise and fatigue 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) 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 deficiency Thrombocytopenia Chronic ITP (idiopathic thrombocytopenia) (HCC) Expected: 02/15/2025, Expires: 05/17/2025 [facility] Comment on above: Expected: 02/15/2025, Expires: Start: 02-14-2025 End: 02-14-2025 Follow-up encounter Hematology/Oncology Comment on above: 6 week follow up, labs, B12 & Aranesp Start: 02-14-2025 End: 02-14-2025 Patient encounter procedure 02/14/2025 2:15 PM EDT Office Visit [facility] [address] [place] [address] 6 week follow up, labs, B12 & Aranesp [facility] Comment on above: 6 week follow up, labs, B12 & Aranesp Start: 02-11-2025 DIABETES SCREEN DIABETES SCREEN [facility] Start: 02-05-2025 Subsequent hospital visit by physician 02/05/2025 Hospital Encounter [facility] [place] [address] [place] [address] [place] [address] [place], [place] [id number] [facility] [place] Start: 01-31-2025 End: 01-31-2025 Follow-up encounter 01/31/2025 2:45 PM EDT [facility] Hematology/Oncology [address] [address] 6 week follow up, labs, B12 & Aranesp Hematology/Oncology Comment on above: 6 week follow up, labs, B12 & Aranesp Start: 01-31-2025 End: 01-31-2025 Patient encounter procedure 01/31/2025 2:30 PM EDT Office Visit [facility] [address] [place] [address] 6 week follow up, labs, B12 & Aranesp [facility] Comment on above: 6 week follow up, labs, B12 & Aranesp Start: 01-28-2025 End: 04-29-2025 CBC W Auto Differential panel - Blood COMPLETE BLOOD COUNT AND DIFFERENTIAL Lab Routine 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) Expected: 01/28/2025, Expires: 04/29/2025 [facility] Work Phone: Comment on above: Expected: 01/28/2025, Expires: Start: 01-17-2025 End: 01-17-2025 Follow-up encounter 01/17/2025 2:30 PM EDT [facility] Hematology/Oncology [address] [place] [address] 6 week follow up, labs, B12 & Aranesp Hematology/Oncology Comment on above: 6 week follow up, labs, B12 & Aranesp Start: 01-17-2025 End: 01-17-2025 Patient encounter procedure 01/17/2025 2:15 PM EDT Office Visit [facility] [address] [place] [address] [place] [address] 6 week follow up, labs, B12 & Aranesp [facility] Comment on above: 6 week follow up, labs, B12 & Aranesp Start: 01-15-2025 End: 01-15-2025 Patient encounter procedure [facility] Comment on above: Chronic kidney disease, stage 3b ([facility]) (Primary Dx); Obesity (BMI 30-39.9); Tobacco dependence Start: 01-15-2025 End: 01-15-2026 XR Lumbar spine 2 or 3 Views XR lumbar spine 2 or 3 views Imaging Routine Weakness of both legs Lumbar spondylosis Expected: 01/15/2025, Expires: 01/15/2026 [facility] Work Phone: Comment on above: Expected: 01/15/2025, Expires: Start: 01-06-2025 End: 01-06-2025 Patient encounter procedure [facility] Comment on above: Essential hypertension (Primary Dx); Chronic kidney disease, stage 3b (CMS-HCC) Start: 01-03-2025 End: 01-03-2025 Follow-up encounter Hematology/Oncology Comment on above: 6 week follow up, labs, B12 & Aranesp Start: 01-03-2025 End: 01-03-2025 Patient encounter procedure 01/03/2025 1:45 PM EDT Office Visit [facility] [address] [place] [address] [place] [address] 6 week follow up, labs, B12 & Aranesp [facility] Comment on above: 6 week follow up, labs, B12 & Aranesp Start: 12-25-2024 End: 12-25-2025 Thyrotropin [Units/volume] in Serum or Plasma TSH Lab Routine Thyroid nodule Expected: 12/25/2024 (Approximate), Expires: 12/25/2025 [facility] Work Phone: Comment on above: Expected: 12/25/2024 (Approximate), Expi res: 12/25/2025 Start: 12-25-2024 End: 12-25-2025 Thyroxine (T4) free [Mass/volume] in Serum or Plasma T4, free Lab Routine Thyroid nodule Expected: 12/25/2024 (Approximate), Expires: 12/25/2025 [facility] Comment on above: Expected: 12/25/2024 (Approximate), Expi res: 12/25/2025 Start: 12-25-2024 End: 12-25-2025 Triiodothyronine (T3) Free [Mass/volume] in Serum or Plasma T3, free Lab Routine Thyroid nodule Expected: 12/25/2024 (Approximate), Expires: 12/25/2025 [facility] Comment on above: Expected: 12/25/2024 (Approximate), Expi res: 12/25/2025 Start: 12-25-2024 End: 12-25-2024 Patient encounter procedure [facility] Comment on above: Obstructive sleep apnea syndrome (Primar y Dx); Chronic kidney disease, stage 3b (CMS-HCC); Multiple lung nodules on CT; 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 ; Essential hypertension ; Obesity (BMI 30-39.9); Pre-diabetes; Chronic ITP (idiopathic thrombocytopenia) (HCC); Tobacco dependence; Thyroid nodule Start: 12-20-2024 End: 12-20-2024 ambulatory 12/20/2024 1:45 PM EDT [facility] Hematology/Oncology [address] [place] [address] Lab & Aranesp Hematology/Oncology Comment on above: Lab & Aranesp Start: 12-20-2024 End: 12-20-2024 Patient encounter procedure 12/20/2024 1:30 PM EDT Office Visit [facility] [address] [place] [address] Lab & Aranesp [facility] Comment on above: Lab & Aranesp Start: 12-17-2024 DIABETES SCREEN DIABETES SCREEN [facility] Start: 2024 End: 11-22-2025 Cobalamin (Vitamin B12) [Mass/volume] in Serum or Plasma VITAMIN B12 Lab Routine Stage 3b chronic kidney disease (HCC) 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) Expected: 2024 (Approximate), Expires: 11/22/2025 [facility] Comment on above: Expected: 2024 (Approximate), Expi res: 11/22/2025 Start: 2024 End: 11-22-2025 Comprehensive metabolic 2000 panel - Serum or Plasma COMPREHENSIVE METABOLIC PANEL Lab Routine Stage 3b chronic kidney disease (HCC) 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) Expected: 2024 (Approximate), Expires: 11/22/2025 [facility] Comment on above: Expected: 2024 (Approximate), Expi res: 11/22/2025 Start: 2024 End: 03-07-2025 Erythropoietin (EPO) [Units/volume] in Serum or Plasma ERYTHROPOIETIN/EPO Lab Routine Stage 3b chronic kidney disease (HCC) 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) Expected: 2024 (Approximate), Expires: 03/07/2025 [facility] Comment on above: Expected: 2024 (Approximate), Expi res: 03/07/2025 Start: 2024 End: 11-22-2025 Ferritin [Mass/volume] in Serum or Plasma FERRITIN Lab Routine Stage 3b chronic kidney disease (HCC) 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) Expected: 2024 (Approximate), Expires: 11/22/2025 [facility] Comment on above: Expected: 2024 (Approximate), Expi res: 11/22/2025 Start: 2024 End: 11-22-2025 Folate [Mass/volume] in Serum or Plasma FOLATE, SERUM Lab Routine Stage 3b chronic kidney disease (HCC) 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) Expected: 2024 (Approximate), Expires: 11/22/2025 [facility] Comment on above: Expected: 2024 (Approximate), Expi res: 11/22/2025 Start: 2024 End: 11-22-2025 Iron and Iron binding capacity panel - Serum or Plasma IRON AND TIBC Lab Routine Stage 3b chronic kidney disease (HCC) 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) Expected: 2024 (Approximate), Expires: 11/22/2025 [facility] Comment on above: Expected: 2024 (Approximate), Expi res: 11/22/2025 Start: 2024 End: 03-07-2025 RETICULOCYTE COUNT RETICULOCYTE COUNT Lab Routine Stage 3b chronic kidney disease (HCC) 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) Expected: 2024 (Approximate), Expires: 03/07/2025 [facility] Comment on above: Expected: 2024 (Approximate), Expi res: 03/07/2025 Start: 2024 End: 2024 ambulatory 2024 1:45 PM EDT [facility] Hematology/Oncology [address] [place] [address] Lab & [facility] Hematology/Oncology Comment on above: Lab & Aranesp Start: 2024 End: 2024 Patient encounter procedure 2024 1:30 PM EDT Office Visit [facility] [address] [place] [address] Lab & Aranesp [facility] Comment on above: Lab & Aranesp Start: 12-02-2024 End: 11-29-2025 CBC panel - Blood by Automated count CBC Lab Routine 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 Thrombocytopenia Expected: 12/02/2024 (Approximate), Expires: 11/29/2025 [facility] Work Phone: Comment on above: Expected: 12/02/2024 (Approximate), Expi res: 11/29/2025 Start: 12-02-2024 End: 11-29-2025 Comprehensive metabolic 2000 panel - Serum or Plasma Comprehensive Metabolic Panel Lab Routine 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 Expected: 12/02/2024 (Approximate), Expires: 11/29/2025 [facility] Work Phone: Comment on above: Expected: 12/02/2024 (Approximate), Expi res: 11/29/2025 Start: 11-26-2024 End: 11-26-2025 aPTT in Platelet poor plasma by Coagulation assay aPTT Lab Routine Thrombocytopenia Expected: 11/26/2024 (Approximate), Expires: 11/26/2025 [facility] Work Phone: Comment on above: Expected: 11/26/2024 (Approximate), Expi res: 11/26/2025 Start: 11-26-2024 End: 05-29-2025 CT Chest WO contrast CT chest wo IV contrast Imaging Routine Multiple lung nodules on CT Expected: 11/26/2024, Expires: 05/29/2025 [facility] Work Phone: Comment on above: Expected: 11/26/2024, Expires: Start: 11-26-2024 End: 11-26-2025 Prothrombin time (PT) Protime-INR Lab Routine Thrombocytopenia Expected: 11/26/2024 (Approximate), Expires: 11/26/2025 [facility] Service Area Work Phone: Comment on above: Expected: 11/26/2024 (Approximate), Expi res: 11/26/2025 Start: 11-22-2024 End: 11-22-2024 Follow-up encounter 11/22/2024 2:00 PM EDT Visit (SP) Office Hematology/Oncology [address] [place] [address] Rinku Ramsey MD [address] [place] [address] 6 week follow up and labs abd B 12 inj Hematology/Oncology Comment on above: 6 week follow up and labs abd B 12 inj Start: 11-22-2024 End: 11-22-2024 Patient encounter procedure 11/22/2024 1:45 PM EDT Office Visit [facility] [address] [place] [address] 6 week follow up and labs abd B 12 inj [facility] Comment on above: 6 week follow up and labs abd B 12 inj Start: 11-21-2024 End: 11-21-2024 Patient encounter procedure 11/21/2024 10:30 AM EDT Office Visit [facility] [address] [place] [phone] Stephanie Dumont, [employer] [address] [place] [phone] [facility] Start: 11-14-2024 COVID-19 Vaccine ( - season) COVID-19 Vaccine ( season) [facility] Start: 11-14-2024 Covid-19 Vaccine (7 - Moderna risk season) Covid-19 Vaccine (7 - Moderna risk season) [facility] Start: 11-12-2024 End: 11-12-2024 Patient encounter procedure 11/12/2024 11:00 AM EDT Office Visit [facility] [address] [place] [phone] Stephanie Dumont, [employer] [address] [place] [phone] [facility] Start: 10-28-2024 DIABETES SCREEN DIABETES SCREEN [facility] Start: 10-11-2024 End: 10-11-2024 Nursing evaluation of patient and report 10/11/2024 11:00 AM EDT Nurse Visit Hematology/Oncology [address] [place] [address] Debora Gaona Nurse Clarence [address] [place] [address] 6 week follow up labs B12 inj(seeing JR too) Hematology/Oncology Comment on above: 6 week follow up labs B12 inj(seeing JR too) Start: 10-11-2024 End: 10-11-2024 Follow-up encounter 10/11/2024 10:30 AM EDT Visit (SP) Office Hematology/Oncology [address] [place] [address] Li Frank APRN.EMERGENCY DEPARTMENT [address] [place] [address] 6 week follow up and labs abd B 12 inj Hematology/Oncology Comment on above: 6 week follow up and labs abd B 12 inj Start: 10-11-2024 End: 10-11-2024 Patient encounter procedure 10/11/2024 10:15 AM EDT Office Visit [facility] [address] [place] [address] 6 week follow up and labs abd B 12 inj [facility] Comment on above: 6 week follow up and labs abd B 12 inj Start: 09-25-2024 End: 09-25-2024 Patient encounter procedure 09/25/2024 10:20 AM EDT Office Visit [facility] [address] [facility] [address] [place] [address] Mar Mayo MD [address] [place] [address] [facility] Start: 09-16-2024 DIABETES SCREEN DIABETES SCREEN [facility] Start: 08-22-2024 End: 08-22-2024 Nursing evaluation of patient and report 08/22/2024 11:00 AM EST Nurse Visit Hematology/Oncology [address] [place] [address] Debora Gaona Nurse Clarence [address] [address] 6 week follow up and labs abd B 12 inj-sees JR-date needs changed orders signed Hematology/Oncology Comment on above: 6 week follow up and labs abd B 12 inj-s ees JR-date needs changed orders signed Start: 08-22-2024 End: 08-22-2024 Follow-up encounter 08/22/2024 10:30 AM EST Visit (SP) Office Hematology/Oncology [address] [place] [address] Li Frank APRN.EMERGENCY DEPARTMENT [address] [place] [address] 6 week follow up and labs abd B 12 inj Hematology/Oncology Comment on above: 6 week follow up and labs abd B 12 inj Start: 08-22-2024 End: 08-22-2024 Patient encounter procedure 08/22/2024 10:15 AM EST Office Visit [facility] [address] [place] [address] 6 week follow up and labs abd B 12 inj [facility] Comment on above: 6 week follow up and labs abd B 12 inj Start: 08-15-2024 End: 08-15-2024 Patient encounter procedure [facility] Comment on above: Systemic lupus erythematosus, unspecifie d (CMS/HCC) (Primary Dx); Qualitative platelet defects (CMS/HCC); Chronic kidney disease, stage 3a (HCC) (CMS/HCC); Immune thrombocytopenic purpura (CMS/HCC); Secondary pulmonary arterial hypertension (CMS/HCC); 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 (CMS/HCC); Essential hypertension (CMS/HCC); PAH (pulmonary artery hypertension) (CMS/HCC); Obesity (BMI 30-39.9); Pre-diabetes; Tobacco dependence Start: 07-12-2024 Covid-19 Vaccine ( season) Covid-19 Vaccine ( season) [facility] Start: 07-11-2024 End: 07-11-2024 Nursing evaluation of patient and report 07/11/2024 11:30 AM EST Nurse Visit Hematology/Oncology [address] [place] [address] Debora Gaona Nurse Clarence [address] [place] [address] 6 week follow up and labs abd B 12 inj (seeing LOULOU too) Hematology/Oncology Comment on above: 6 week follow up and labs abd B 12 inj ( seeing LOULOU too) Start: 07-11-2024 End: 07-11-2024 Follow-up encounter 07/11/2024 11:00 AM EST Visit (SP) Office Hematology/Oncology [address] [place] [address] Li Frank APRN.EMERGENCY DEPARTMENT [address] [place] [place] [address] 6 week follow up and labs abd B 12 inj Hematology/Oncology Comment on above: 6 week follow up and labs abd B 12 inj Start: 07-11-2024 End: 07-11-2024 Patient encounter procedure 07/11/2024 10:45 AM EST Office Visit [facility] [address] [place] [address] 6 week follow up and labs abd B 12 inj [facility] Comment on above: 6 week follow up and labs abd B 12 inj Start: 07-10-2024 Advance Directive Discussion Advance Directive Discussion [facility] Start: 07-10-2024 Medicare Advantage Annual Wellness Visit Medicare Advantage Annual Wellness Visit [facility] Start: 05-30-2024 End: 05-30-2024 Nursing evaluation of patient and report 05/30/2024 11:00 AM EST Nurse Visit Hematology/Oncology [address] [place] [address] Debora Gaona Nurse Clarence [address] [place] [address] 6 week follow up and labs abd B 12 inj (seeing LOULOU too) Hematology/Oncology Comment on above: 6 week follow up and labs abd B 12 inj ( seeing LOULOU too) Start: 05-30-2024 End: 05-30-2024 Follow-up encounter 05/30/2024 10:45 AM EST Visit (SP) Office Hematology/Oncology [address] [place] [address] Rinku Ramsey MD [address] [place] [address] 6 week follow up and labs abd B 12 inj Hematology/Oncology Comment on above: 6 week follow up and labs abd B 12 inj Start: 05-30-2024 End: 05-30-2024 Patient encounter procedure 05/30/2024 10:30 AM EST Office Visit [facility] [address] [place] [address] [place] [address] 6 week follow up and labs abd B 12 inj [facility] Comment on above: 6 week follow up and labs abd B 12 inj Start: 05-28-2024 End: 05-28-2025 CT Chest WO contrast CT chest wo IV contrast Imaging Routine Multiple lung nodules on CT Expected: 05/28/2024, Expires: 05/28/2025 [facility] Work Phone: Comment on above: Expected: 05/28/2024, Expires: Start: 05-19-2024 Screening for malignant neoplasm of breast Mammogram [facility] Start: 05-15-2024 End: 05-15-2024 Patient encounter procedure 05/15/2024 2:20 PM EST Office Visit [facility] [address] [facility] [address] [place] [id number] Mar Mayo MD [address] [facility] [address] [place], [place] [id number] [facility] Start: 05-15-2024 End: 05-15-2025 Creatinine [Mass/volume] in Serum or Plasma Creatinine Lab Routine Multiple lung nodules on CT Expected: 05/15/2024 (Approximate), Expires: 05/15/2025 [facility] Work Phone: Comment on above: Expected: 05/15/2024 (Approximate), Expi res: 05/15/2025 Start: 05-14-2024 End: 05-14-2025 DXA Skeletal system Views for bone density DEXA bone density Imaging Routine Age-related osteoporosis without current pathological fracture ([facility]) Expected: 05/14/2024 (Approximate), Expires: 05/14/2025 [facility] Work Phone: Comment on above: Expected: 05/14/2024 (Approximate), Expi res: 05/14/2025 Start: 05-14-2024 End: 05-14-2024 Patient encounter procedure 05/14/2024 10:30 AM EST Office Visit [facility] [address] [place] [id number] Stephanie Dumont NP [address] [place] [phone] [facility] Start: 05-13-2024 End: 05-13-2024 Patient encounter procedure 05/13/2024 10:45 AM EST Office Visit [facility] [address] [place] [phone] Jr. Herson Avalos, DO [address] [address] [facility] Start: 05-09-2024 Influenza vaccination Influenza Vaccine (#1) [facility] Comment on above: Postponed from 03/10/2024 (Patient Does Not Have Time) Start: 05-08-2024 Medicare Annual Wellness (AWV) Medicare Annual Wellness (AWV) [facility] Start: 05-07-2024 End: 05-07-2025 Creatinine [Mass/volume] in Serum or Plasma Creatinine Lab Routine Multiple lung nodules on CT Expected: 05/07/2024 (Approximate), Expires: 05/07/2025 [facility] Comment on above: Expected: 05/07/2024 (Approximate), Expi res: 05/07/2025 Start: 05-07-2024 End: 05-07-2025 CT Chest W contrast IV CT chest w IV contrast Imaging Routine Multiple lung nodules on CT Expected: 05/07/2024 (Approximate), Expires: 05/07/2025 [facility] Work Phone: Comment on above: Expected: 05/07/2024 (Approximate), Expi res: 05/07/2025 Start: 04-29-2024 End: 04-29-2024 Patient encounter procedure 04/29/2024 10:30 AM EDT Office Visit [facility] [address] [place] [address] Jr. Herson Avalos, DO [address] [facility] [address] [place] [address] [facility] Start: 04-18-2024 End: 04-18-2024 Nursing evaluation of patient and report Hematology/Oncology Comment on above: 6 week follow up and labs abd B 12 inj 6 week follow up and labs abd B 12 inj (seeing LOULOU too) Start: 04-18-2024 End: 04-18-2024 Follow-up encounter 04/18/2024 11:15 AM EDT Visit (SP) Office Hematology/Oncology [address] [address] Rinku Ramsey MD [address] [place] [address] 6 week follow up and labs abd B 12 inj Hematology/Oncology Comment on above: 6 week follow up and labs abd B 12 inj Start: 04-18-2024 End: 04-18-2024 Patient encounter procedure 04/18/2024 11:00 AM EDT Office Visit [facility] [address] [place] [address] 6 week follow up and labs abd B 12 inj [facility] Comment on above: 6 week follow up and labs abd B 12 inj Start: 04-16-2024 End: 03-05-2025 CBC W Auto Differential panel - Blood COMPLETE BLOOD COUNT AND DIFFERENTIAL Lab Routine 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 deficiency Chronic ITP (idiopathic thrombocytopenia) (HCC) Expected: 04/16/2024 (Approximate), Expires: 03/05/2025 [facility] Comment on above: Expected: 04/16/2024 (Approximate), Expi res: 03/05/2025 Start: 04-16-2024 End: 03-05-2025 Cobalamin (Vitamin B12) [Mass/volume] in Serum or Plasma VITAMIN B12 Lab Routine 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 deficiency Expected: 04/16/2024 (Approximate), Expires: 03/05/2025 [facility] Comment on above: Expected: 04/16/2024 (Approximate), Expi res: 03/05/2025 Start: 04-16-2024 End: 03-05-2025 Comprehensive metabolic 2000 panel - Serum or Plasma COMPREHENSIVE METABOLIC PANEL Lab Routine 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 deficiency Expected: 04/16/2024 (Approximate), Expires: 03/05/2025 [facility] Comment on above: Expected: 04/16/2024 (Approximate), Expi res: 03/05/2025 Start: 04-16-2024 End: 07-16-2024 Erythropoietin (EPO) [Units/volume] in Serum or Plasma ERYTHROPOIETIN/EPO Lab Routine 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 deficiency Expected: 04/16/2024 (Approximate), Expires: 07/16/2024 [facility] Work Phone: Comment on above: Expected: 04/16/2024 (Approximate), Expi res: 07/16/2024 Start: 04-16-2024 End: 03-05-2025 Ferritin [Mass/volume] in Serum or Plasma FERRITIN Lab Routine 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 deficiency Expected: 04/16/2024 (Approximate), Expires: 03/05/2025 [facility] Comment on above: Expected: 04/16/2024 (Approximate), Expi res: 03/05/2025 Start: 04-16-2024 End: 03-05-2025 Folate [Mass/volume] in Serum or Plasma FOLATE, SERUM Lab Routine 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 deficiency Expected: 04/16/2024 (Approximate), Expires: 03/05/2025 [facility] Comment on above: Expected: 04/16/2024 (Approximate), Expi res: 03/05/2025 Start: 04-16-2024 End: 03-05-2025 Iron and Iron binding capacity panel - Serum or Plasma IRON AND TIBC Lab Routine 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 deficiency Expected: 04/16/2024 (Approximate), Expires: 03/05/2025 [facility] Comment on above: Expected: 04/16/2024 (Approximate), Expi res: 03/05/2025 Start: 04-16-2024 End: 07-16-2024 RETICULOCYTE COUNT RETICULOCYTE COUNT Lab Routine 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 deficiency Expected: 04/16/2024 (Approximate), Expires: 07/16/2024 [facility] Comment on above: Expected: 04/16/2024 (Approximate), Expi res: 07/16/2024 Start: 04-09-2024 End: 04-09-2025 C reactive protein [Mass/volume] in Serum or Plasma C-reactive protein Lab Routine Left leg pain Expected: 04/09/2024 (Approximate), Expires: 04/09/2025 [facility] Comment on above: Expected: 04/09/2024 (Approximate), Expi res: 04/09/2025 Start: 04-09-2024 End: 04-09-2025 Erythrocyte sedimentation rate Sedimentation rate, automated Lab Routine Left leg pain Expected: 04/09/2024 (Approximate), Expires: 04/09/2025 [facility] Comment on above: Expected: 04/09/2024 (Approximate), Expi res: 04/09/2025 Start: 04-09-2024 End: 04-09-2025 NM Whole body Bone 3 Phase Views NM bone 3 phase Imaging Routine Left leg pain Expected: 04/09/2024 (Approximate), Expires: 04/09/2025 [facility] Comment on above: Expected: 04/09/2024 (Approximate), Expi res: 04/09/2025 Start: 04-09-2024 End: 10-01-2024 Patient encounter procedure 04/09/2024 10:15 AM EDT Office Visit [facility] [address] [place] [phone] Blaise Alex PA [address] [address] [facility] Start: 04-05-2024 End: 04-05-2025 Thyrotropin [Units/volume] in Serum or Plasma TSH Lab Routine Disease of thyroid gland (CMS/HCC) Expected: 04/05/2024 (Approximate), Expires: 04/05/2025 [facility] Work Phone: Comment on above: Expected: 04/05/2024 (Approximate), Expi res: 04/05/2025 Start: 04-05-2024 End: 04-05-2025 Thyroxine (T4) free [Mass/volume] in Serum or Plasma T4, free Lab Routine Disease of thyroid gland (CMS/HCC) Expected: 04/05/2024 (Approximate), Expires: 04/05/2025 [facility] Comment on above: Expected: 04/05/2024 (Approximate), Expi res: 04/05/2025 Start: 04-05-2024 End: 04-05-2025 Triiodothyronine (T3) Free [Mass/volume] in Serum or Plasma T3, free Lab Routine Disease of thyroid gland (CMS/HCC) Expected: 04/05/2024 (Approximate), Expires: 04/05/2025 [facility] Comment on above: Expected: 04/05/2024 (Approximate), Expi res: 04/05/2025 Start: 04-04-2024 End: 04-04-2025 Hemoglobin A1c/Hemoglobin.total in Blood Hemoglobin A1c Lab Routine Elevated glucose level Expected: 04/04/2024 (Approximate), Expires: 04/04/2025 [facility] Work Phone: Comment on above: Expected: 04/04/2024 (Approximate), Expi res: 04/04/2025 Start: 04-04-2024 End: 06-04-2025 MG Breast - bilateral Screening Bilateral screening mammogram Imaging Routine Encounter for screening mammogram for malignant neoplasm of breast Expected: 04/04/2024 (Approximate), Expires: 06/04/2025 [facility] Comment on above: Expected: 04/04/2024 (Approximate), Expi res: 06/04/2025 Start: 04-04-2024 End: 04-04-2025 Microalbumin/Creatinine panel in random Urine Microalbumin / creatinine, urine ratio Lab Routine Essential hypertension (CMS/HCC) Expected: 04/04/2024 (Approximate), Expires: 04/04/2025 [facility] Comment on above: Expected: 04/04/2024 (Approximate), Expi res: 04/04/2025 Start: 04-04-2024 End: 04-04-2026 NM Heart Perfusion W adenosine and W radionuclide IV STRESS NUCLEAR MEDICINE LEXISCAN Cardiac Nuclear Medicine Routine Essential hypertension (CMS/HCC) 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 (CMS/HCC) Other chest pain Expected: 04/04/2024 (Approximate), Expires: 04/04/2026 [facility] Comment on above: Expected: 04/04/2024 (Approximate), Expi res: 04/04/2026 Start: 04-04-2024 End: 04-04-2025 Thyrotropin [Units/volume] in Serum or Plasma TSH Lab Routine Disease of thyroid gland (CMS/HCC) Expected: 04/04/2024 (Approximate), Expires: 04/04/2025 [facility] Comment on above: Expected: 04/04/2024 (Approximate), Expi res: 04/04/2025 Start: 04-04-2024 End: 04-04-2025 Thyroxine (T4) free [Mass/volume] in Serum or Plasma T4, free Lab Routine Disease of thyroid gland (CMS/HCC) Expected: 04/04/2024 (Approximate), Expires: 04/04/2025 [facility] Comment on above: Expected: 04/04/2024 (Approximate), Expi res: 04/04/2025 Start: 04-04-2024 End: 04-04-2025 Urinalysis complete panel - Urine Urinalysis with reflex microscopic (clean catch) Lab Routine Essential hypertension (CMS/HCC) Expected: 04/04/2024 (Approximate), Expires: 04/04/2025 [facility] Comment on above: Expected: 04/04/2024 (Approximate), Expi res: 04/04/2025 Start: 04-04-2024 End: 04-04-2024 Patient encounter procedure 04/04/2024 9:40 AM EDT [facility] [address] [place] [address] Stephanie Dumont NP [address] [place] [address] [facility] Start: 03-15-2024 End: 02-01-2025 CBC W Auto Differential panel - Blood COMPLETE BLOOD COUNT AND DIFFERENTIAL Lab Routine Chronic ITP (idiopathic thrombocytopenia) (HCC) Essential hypertension Obstructive sleep apnea syndrome Stage 3b chronic kidney disease (HCC) Expected: 03/15/2024 (Approximate), Expires: 02/01/2025 [facility] Comment on above: Expected: 03/15/2024 (Approximate), Expi res: 02/01/2025 Start: 03-15-2024 End: 02-01-2025 Comprehensive metabolic 2000 panel - Serum or Plasma COMPREHENSIVE METABOLIC PANEL Lab Routine Chronic ITP (idiopathic thrombocytopenia) (HCC) Essential hypertension Obstructive sleep apnea syndrome Stage 3b chronic kidney disease (HCC) Expected: 03/15/2024 (Approximate), Expires: 02/01/2025 [facility] Comment on above: Expected: 03/15/2024 (Approximate), Expi res: 02/01/2025 Start: 03-15-2024 End: 02-01-2025 Lactate dehydrogenase [Enzymatic activity/volume] in Serum or Plasma LACTATE DEHYDROGENASE Lab Routine Chronic ITP (idiopathic thrombocytopenia) (HCC) Essential hypertension Obstructive sleep apnea syndrome Stage 3b chronic kidney disease (HCC) Expected: 03/15/2024 (Approximate), Expires: 02/01/2025 [facility] Work Phone: Comment on above: Expected: 03/15/2024 (Approximate), Expi res: 02/01/2025 Start: 03-15-2024 End: 03-15-2024 Follow-up encounter 03/15/2024 1:15 PM EDT Visit (SP) Office Hematology/Oncology [address] [place] [address] Rinku Ramsey MD [address] [facility] [place] [address] 6 week follow up and labs Hematology/Oncology Comment on above: 6 week follow up and labs Start: 03-15-2024 End: 03-15-2024 Patient encounter procedure 03/15/2024 1:00 PM EDT Office Visit [facility] [address] [place] [address] 6 week follow up and labs [facility] Comment on above: 6 week follow up and labs Start: 03-10-2024 Covid-19 Vaccine ( season) Covid-19 Vaccine ( season) [facility] Start: 03-10-2024 Influenza vaccination Influenza Vaccine (#1) [facility] Start: 03-04-2024 End: 03-04-2024 Patient encounter procedure [facility] Comment on above: Arrived Start: 02-26-2024 End: 02-25-2026 Echocardiogram 2D complete Echocardiogram 2D complete Echocardiography Routine Calcification of aortic valve 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 (CMS/HCC) Expected: 02/26/2024 (Approximate), Expires: 02/25/2026 [facility] Comment on above: Expected: 02/26/2024 (Approximate), Expi res: 02/25/2026 Start: 02-26-2024 End: 02-25-2025 US Thyroid gland US thyroid Imaging Routine Thyroid nodule (CMS/HCC) Expected: 02/26/2024 (Approximate), Expires: 02/25/2025 [facility] Work Phone: Comment on above: Expected: 02/26/2024 (Approximate), Expi res: 02/25/2025 Start: 02-06-2024 End: 02-06-2024 Patient encounter procedure 02/06/2024 2:15 PM EDT Office Visit [facility] [address] [place] [address] [place] [address] [place] [address] [facility] Start: 02-02-2024 End: 02-02-2024 Follow-up encounter 02/02/2024 1:30 PM EDT Visit (SP) Office Hematology/Oncology [address] [place] [address] Rinku Ramsey MD [address] [facility] [place] [address] 6 week follow up and labs Hematology/Oncology Comment on above: 6 week follow up and labs Start: 02-02-2024 End: 02-02-2024 Patient encounter procedure [facility] Comment on above: 11/28-Lvm to schedule appts for outsid e lab orders & EKG from Dr Royal-already scanned & entered 6 week follow up and labs Start: 01-05-2024 End: 01-05-2024 Follow-up encounter 01/05/2024 11:45 AM EDT Visit (SP) Office Hematology/Oncology [address] [facility] [address] Rinku Ramsey MD [address] [facility] [place] [address] 6 week follow up and labs Hematology/Oncology Comment on above: 6 week follow up and labs Start: 01-05-2024 End: 01-05-2024 Patient encounter procedure [facility] Comment on above: 6 week follow up and labs 11/28-Lvm to sched ule appts for outside lab orders & EKG from Dr Royal-already scanned & entered Start: 01-02-2024 End: 01-02-2024 Patient encounter procedure 01/02/2024 1:15 PM EDT Office Visit [facility] [address] [place] [address] [place] [address] [place] [address] [facility] Start: 12-18-2023 End: 12-18-2023 Tmpp mastoidect ntc/rcnsted canal wall ocr Tympanomastoidectomy Cholesteatoma of left ear 12/18/2023 7:45 AM EDT [facility] OR Start: 11-14-2023 End: 11-13-2024 Request for Pre-Admission Testing Visit Request for Pre-Admission Testing Visit Procedures Routine Cholesteatoma of left ear Expected: 11/14/2023 (Approximate), Expires: 11/13/2024 [facility] Service Area Work Phone: Comment on above: Expected: 11/14/2023 (Approximate), Expi res: 11/13/2024 Start: 10-13-2023 End: 01-12-2024 CBC W Auto Differential panel - Blood CBC + DIFF Lab Routine Chronic ITP (idiopathic thrombocytopenia) (HCC) Expected: 10/13/2023, Expires: 01/12/2024 [facility] Work Phone: Comment on above: Expected: 10/13/2023, Expires: 4 Start: 10-13-2023 End: 01-12-2024 Comprehensive metabolic 2000 panel - Serum or Plasma COMP METABOLIC PANEL Lab Routine Chronic ITP (idiopathic thrombocytopenia) (HCC) Expected: 10/13/2023, Expires: 01/12/2024 [facility] Work Phone: Comment on above: Expected: 10/13/2023, Expires: 4 Start: 09-24-2023 COVID-19 Vaccine () COVID-19 Vaccine () [facility] Start: 08-23-2023 End: 08-23-2023 Patient encounter procedure 08/23/2023 10:00 AM EST Office Visit [facility] [address] [facility] [address] [place] [address] Mar Mayo MD [address] [address] [place] [address] [facility] Start: 07-25-2023 Colonoscopy COLONOSCOPY [facility] Start: 07-25-2023 COLORECTAL CANCER SCREENING COLORECTAL CANCER SCREENING [facility] Start: 07-25-2023 Screening for malignant neoplasm of colon [facility] Start: 07-21-2023 Covid-19 Vaccine () Covid-19 Vaccine () [facility] Start: 07-17-2023 End: 10-16-2023 CBC W Auto Differential panel - Blood CBC + DIFF Lab Routine Chronic ITP (idiopathic thrombocytopenia) (HCC) Essential hypertension Expected: 07/17/2023 (Approximate), Expires: 10/16/2023 [facility] Work Phone: Comment on above: Expected: 07/17/2023 (Approximate), Expi res: 10/16/2023 Start: 07-17-2023 End: 10-16-2023 Comprehensive metabolic 2000 panel - Serum or Plasma COMP METABOLIC PANEL Lab Routine Chronic ITP (idiopathic thrombocytopenia) (HCC) Essential hypertension Expected: 07/17/2023 (Approximate), Expires: 10/16/2023 [facility] Work Phone: Comment on above: Expected: 07/17/2023 (Approximate), Expi res: 10/16/2023 Start: 07-10-2023 Advance Directive Discussion Advance Directive Discussion [facility] Start: 07-10-2023 Behavioral Health Screening Behavioral Health Screening [facility] Start: 07-10-2023 Depression Assessment Depression Assessment [facility] Start: 04-20-2023 End: 04-19-2024 CBC W Auto Differential panel - Blood CBC + DIFF Lab Routine Chronic ITP (idiopathic thrombocytopenia) (HCC) Expected: 04/20/2023 (Approximate), Expires: 04/19/2024 [facility] Work Phone: Comment on above: Expected: 04/20/2023 (Approximate), Expi res: 04/19/2024 Start: 04-20-2023 End: 04-19-2024 Comprehensive metabolic 2000 panel - Serum or Plasma COMP METABOLIC PANEL Lab Routine Chronic ITP (idiopathic thrombocytopenia) (HCC) Expected: 04/20/2023 (Approximate), Expires: 04/19/2024 [facility] Work Phone: Comment on above: Expected: 04/20/2023 (Approximate), Expi res: 04/19/2024 Start: 04-20-2023 End: 04-19-2024 Lactate dehydrogenase [Enzymatic activity/volume] in Serum or Plasma LD LACTATE DEHYDRO Lab Routine Chronic ITP (idiopathic thrombocytopenia) (HCC) Expected: 04/20/2023 (Approximate), Expires: 04/19/2024 [facility] Work Phone: Comment on above: Expected: 04/20/2023 (Approximate), Expi res: 04/19/2024 Start: 03-10-2023 Covid-19 Vaccine () Covid-19 Vaccine () [facility] Start: 03-10-2023 Influenza vaccination [facility] Start: 02-11-2023 Adult depression screening assessment DEPRESSION SCREENING [facility] Start: 08-05-2022 Adult depression screening assessment DEPRESSION SCREENING [facility] Start: 08-04-2022 End: 06-23-2023 CBC W Auto Differential panel - Blood CBC + DIFF Lab Routine Chronic ITP (idiopathic thrombocytopenia) (HCC) Expected: 08/04/2022 (Approximate), Expires: 06/23/2023 [facility] Work Phone: Comment on above: Expected: 08/04/2022 (Approximate), Expi res: 06/23/2023 Start: 08-04-2022 End: 06-23-2023 Comprehensive metabolic 2000 panel - Serum or Plasma COMP METABOLIC PANEL Lab Routine Chronic ITP (idiopathic thrombocytopenia) (HCC) Expected: 08/04/2022 (Approximate), Expires: 06/23/2023 [facility] Work Phone: Comment on above: Expected: 08/04/2022 (Approximate), Expi res: 06/23/2023 Start: 08-04-2022 End: 06-23-2023 Lactate dehydrogenase [Enzymatic activity/volume] in Serum or Plasma LD LACTATE DEHYDRO Lab Routine Chronic ITP (idiopathic thrombocytopenia) (HCC) Expected: 08/04/2022 (Approximate), Expires: 06/23/2023 [facility] Work Phone: Comment on above: Expected: 08/04/2022 (Approximate), Expi res: 06/23/2023 Start: 08-04-2022 End: 10-04-2022 Nuclear Ab [Presence] in Serum by Immunoassay RAAD PANEL BLOOD SCRN Lab Routine Systemic lupus erythematosus, unspecified SLE type, unspecified organ involvement status (HCC) Expected: 08/04/2022 (Approximate), Expires: 10/04/2022 [facility] Work Phone: Comment on above: Expected: 08/04/2022 (Approximate), Expi res: 10/04/2022 Start: 07-10-2022 ADVANCE DIRECTIVE DISCUSSION ADVANCE DIRECTIVE DISCUSSION [facility] Start: 07-10-2022 DEPRESSION ASSESSMENT DEPRESSION ASSESSMENT [facility] Start: 06-08-2022 COVID-19 VACCINE (5 - Booster for Moderna series) COVID-19 VACCINE (5 - Booster for Moderna series) [facility] Start: 04-02-2022 COVID-19 VACCINE (5 - Booster for Moderna series) COVID-19 VACCINE (5 - Booster for Moderna series) [facility] Start: 04-02-2022 COVID-19 VACCINE (5 - Moderna risk series) COVID-19 VACCINE (5 - Moderna risk series) [facility] Start: 03-30-2022 Lipid 1996 panel - Serum or Plasma Lipid Screening [facility] Start: 03-30-2022 Lipid panel Lipid Screening [facility] Start: 03-30-2022 LIPID SCREEN LIPID SCREEN [facility] Start: 03-25-2022 End: 05-25-2022 CBC W Auto Differential panel - Blood CBC + DIFF Lab Routine Chronic ITP (idiopathic thrombocytopenia) (HCC) Essential hypertension Obstructive sleep apnea syndrome Systemic lupus erythematosus, unspecified SLE type, unspecified organ involvement status (HCC) Expected: 03/25/2022, Expires: 05/25/2022 [facility] Work Phone: Comment on above: Expected: 03/25/2022, Expires: Start: 03-25-2022 End: 05-25-2022 Comprehensive metabolic 2000 panel - Serum or Plasma COMP METABOLIC PANEL Lab Routine Chronic ITP (idiopathic thrombocytopenia) (HCC) Essential hypertension Obstructive sleep apnea syndrome Systemic lupus erythematosus, unspecified SLE type, unspecified organ involvement status (HCC) Expected: 03/25/2022, Expires: 05/25/2022 [facility] Work Phone: Comment on above: Expected: 03/25/2022, Expires: 2 Start: 03-10-2022 Influenza vaccination INFLUENZA (#1) [facility] Start: 01-28-2022 End: 03-30-2022 CBC W Auto Differential panel - Blood CBC + DIFF Lab Routine Hypertension, unspecified type Chronic ITP (idiopathic thrombocytopenia) (HCC) Essential hypertension Obstructive sleep apnea syndrome Lung nodules Systemic lupus erythematosus, unspecified SLE type, unspecified organ involvement status (HCC) Expected: 01/28/2022, Expires: 03/30/2022 [facility] Work Phone: Comment on above: Expected: 01/28/2022, Expires: 2 Start: 01-28-2022 End: 03-30-2022 Comprehensive metabolic 2000 panel - Serum or Plasma COMP METABOLIC PANEL Lab Routine Hypertension, unspecified type Chronic ITP (idiopathic thrombocytopenia) (HCC) Essential hypertension Obstructive sleep apnea syndrome Lung nodules Systemic lupus erythematosus, unspecified SLE type, unspecified organ involvement status (HCC) Expected: 01/28/2022, Expires: 03/30/2022 [facility] Work Phone: Comment on above: Expected: 01/28/2022, Expires: 2 Start: 01-28-2022 End: 03-30-2022 Lactate dehydrogenase [Enzymatic activity/volume] in Serum or Plasma LD LACTATE DEHYDRO Lab Routine Hypertension, unspecified type Chronic ITP (idiopathic thrombocytopenia) (HCC) Essential hypertension Obstructive sleep apnea syndrome Lung nodules Systemic lupus erythematosus, unspecified SLE type, unspecified organ involvement status (HCC) Expected: 01/28/2022, Expires: 03/30/2022 [facility] Work Phone: Comment on above: Expected: 01/28/2022, Expires: Start: 12-09-2021 End: 10-28-2022 CBC W Auto Differential panel - Blood CBC + DIFF Lab Routine Chronic ITP (idiopathic thrombocytopenia) (HCC) Expected: 12/09/2021 (Approximate), Expires: 10/28/2022 [facility] Work Phone: Comment on above: Expected: 12/09/2021 (Approximate), Expi res: 10/28/2022 Start: 12-09-2021 End: 10-28-2022 Comprehensive metabolic 2000 panel - Serum or Plasma COMP METABOLIC PANEL Lab Routine Chronic ITP (idiopathic thrombocytopenia) (HCC) Expected: 12/09/2021 (Approximate), Expires: 10/28/2022 [facility] Work Phone: Comment on above: Expected: 12/09/2021 (Approximate), Expi res: 10/28/2022 Start: 12-09-2021 End: 10-28-2022 Lactate dehydrogenase [Enzymatic activity/volume] in Serum or Plasma LD LACTATE DEHYDRO Lab Routine Chronic ITP (idiopathic thrombocytopenia) (HCC) Expected: 12/09/2021 (Approximate), Expires: 10/28/2022 [facility] Work Phone: Comment on above: Expected: 12/09/2021 (Approximate), Expi res: 10/28/2022 Start: 09-14-2021 COVID-19 VACCINE (4 - Booster for Moderna series) COVID-19 VACCINE (4 - Booster for Moderna series) [facility] Start: 07-10-2021 ADVANCE DIRECTIVE DISCUSSION ADVANCE DIRECTIVE DISCUSSION [facility] Start: 07-10-2021 DEPRESSION ASSESSMENT DEPRESSION ASSESSMENT [facility] Start: 02-17-2018 Screening for malignant neoplasm of breast Mammogram Screening [facility] Start: 12-07-2015 BONE DENSITY BONE DENSITY [facility] Start: 12-07-2015 Bone Density Screening Bone Density Screening [facility] Start: 12-07-2015 Screening for osteoporosis [facility] Start: 2010 RSV High Risk: (Elderly (60+) or Population) (1 - Risk 60-74 years 1-dose series) RSV High Risk: (Elderly (60+) or Population) (1 - Risk 60-74 years 1-dose series) [facility] Start: 2010 RSV patients and/or patients aged 60+ years (1 - 1-dose 60+ series) RSV patients and/or patients aged 60+ years (1 - 1-dose 60+ series) [facility] Start: 2010 RSV Vaccine (1 - 1-dose 60+ series) RSV Vaccine (1 - 1-dose 60+ series) [facility] Start: 2010 RSV Vaccine (1 - Risk 60-74 years 1-dose series) RSV Vaccine (1 - Risk 60-74 years 1-dose series) [facility] Start: 2000 SHINGRIX VACCINE (1 of 2) SHINGRIX VACCINE (1 of 2) [facility] Start: 2000 Zoster Vaccines (1 of 2) Zoster Vaccines (1 of 2) [facility] Start: 12-07-1995 COLOGUARD (FIT-DNA) COLOGUARD (FIT-DNA) [facility] Start: 12-07-1995 Colonoscopy COLONOSCOPY [facility] Start: 12-07-1995 COLORECTAL CANCER SCREENING COLORECTAL CANCER SCREENING [facility] Start: 12-07-[address] COLONOGRAPHY [facility] Start: 12-07-1995 FECAL OCCULT BLOOD FECAL OCCULT BLOOD [facility] Start: 12-07-1995 Screening for malignant neoplasm of colon [facility] Start: 12-07-1995 SIGMOIDOSCOPY SIGMOIDOSCOPY [facility] Start: 1990 Mammography [facility] Start: 1990 Screening for malignant neoplasm of breast Mammogram [facility] Start: 1972 DTaP/Tdap/Td Vaccines (1 - Tdap) DTaP/Tdap/Td Vaccines (1 - Tdap) [facility] Start: 1969 SHINGRIX VACCINE (1 of 2) SHINGRIX VACCINE (1 of 2) [facility] Start: 1969 Urine microalbumin profile [facility] Start: 1968 ANNUAL PCP TEAM CHRONIC DISEASE VISIT ANNUAL PCP TEAM CHRONIC DISEASE VISIT [facility] Start: 1968 Anxiety Screening Anxiety Screening [facility] Start: 1968 BP CONTROLLED (<130/80) BP CONTROLLED (<130/80) [facility] Start: 1968 Depression Screening Depression Screening [facility] Start: 1968 Hepatitis C screening Hepatitis C Screening [facility] Start: 1961 Screening for malignant neoplasm of cervix Cervical Cancer Screening [facility] Start: 12-07-1951 MMR Vaccines (1 of 1 - Standard series) MMR Vaccines (1 of 1 - Standard series) [facility] Start: 1950 Lipid panel Lipid Panel [facility] Start: 1950 Medicare Annual Wellness (AWV) Medicare Annual Wellness (AWV) [facility] Start: 1950 Medicare Annual Wellness Visit Medicare Annual Wellness Visit (AWV) [facility] Start: 1950 Screening for malignant neoplasm of colon [facility] Start: 1950 Screening for osteoporosis Bone Density Scan [facility] End: 02-05-2025 Blood type and Indirect antibody screen panel - Blood Type And Screen Lab Routine 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 As needed (Lab) until discontinued starting 02/05/2025 [facility] Service Area Work Phone: Comment on above: As needed (Lab) until discontinued start ing 02/05/2025 End: 03-31-2023 CBC W Auto Differential panel - Blood CBC + DIFF Lab Routine Chronic ITP (idiopathic thrombocytopenia) (HCC) Obstructive sleep apnea syndrome Every 6 weeks for 9 Occurrences starting 03/31/2022 until 03/31/2023 [facility] Work Phone: Comment on above: Every 6 weeks for 9 Occurrences starting 03/31/2022 until 03/31/2023 End: 04-19-2024 CBC W Auto Differential panel - Blood CBC + DIFF Lab Routine Chronic ITP (idiopathic thrombocytopenia) (HCC) Every 6 weeks for 9 Occurrences starting 04/20/2023 until 04/19/2024 [facility] Work Phone: Comment on above: Every 6 weeks for 9 Occurrences starting 04/20/2023 until 04/19/2024 CBC W Auto Different ial panel - Blood CBC and differential Lab Routine Left leg pain Ordered: 04/09/2024 [facility] Work Phone: Comment on above: Ordered: 04/09/2024 End: 04-18-2025 CBC W Auto Differential panel - Blood COMPLETE BLOOD COUNT AND DIFFERENTIAL Lab Routine Hyperglycemia Chronic ITP (idiopathic thrombocytopenia) (HCC) 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 deficiency Obstructive sleep apnea syndrome Every 6 weeks for 9 Occurrences starting 04/18/2024 until 04/18/2025 [facility] Work Phone: Comment on above: Every 6 weeks for 9 Occurrences starting 04/18/2024 until 04/18/2025 End: 11-22-2025 CBC W Auto Differential panel - Blood COMPLETE BLOOD COUNT AND DIFFERENTIAL Lab Routine Stage 3b chronic kidney disease (HCC) 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) Every other week for 26 Occurrences starting 11/22/2024 until 11/22/2025 [facility] Work Phone: Comment on above: Every other week for 26 Occurrences star ting 11/22/2024 until 11/22/2025 End: 12-18-2023 Choriogonadotropin ( test) [Presence] in Urine [facility] Service Area Work Phone: Comment on above: STAT (Lab) for 1 Occurrences starting until 12/18/2023 End: 04-19-2024 Cobalamin (Vitamin B12) [Mass/volume] in Serum or Plasma VITAMIN B12 BLOOD Lab Routine Chronic ITP (idiopathic thrombocytopenia) (HCC) Every 6 weeks for 9 Occurrences starting 04/20/2023 until 04/19/2024 [facility] Work Phone: Comment on above: Every 6 weeks for 9 Occurrences starting 04/20/2023 until 04/19/2024 End: 04-18-2025 Cobalamin (Vitamin B12) [Mass/volume] in Serum or Plasma VITAMIN B12 Lab Routine Hyperglycemia Chronic ITP (idiopathic thrombocytopenia) (HCC) 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 deficiency Obstructive sleep apnea syndrome Every 6 weeks for 9 Occurrences starting 04/18/2024 until 04/18/2025 [facility] Comment on above: Every 6 weeks for 9 Occurrences starting 04/18/2024 until 04/18/2025 End: 03-31-2023 Comprehensive metabolic 2000 panel - Serum or Plasma COMP METABOLIC PANEL Lab Routine Chronic ITP (idiopathic thrombocytopenia) (HCC) Obstructive sleep apnea syndrome Every 6 weeks for 9 Occurrences starting 03/31/2022 until 03/31/2023 [facility] Work Phone: Comment on above: Every 6 weeks for 9 Occurrences starting 03/31/2022 until 03/31/2023 End: 04-19-2024 Comprehensive metabolic 2000 panel - Serum or Plasma COMP METABOLIC PANEL Lab Routine Chronic ITP (idiopathic thrombocytopenia) (HCC) Every 6 weeks for 9 Occurrences starting 04/20/2023 until 04/19/2024 [facility] Work Phone: Comment on above: Every 6 weeks for 9 Occurrences starting 04/20/2023 until 04/19/2024 End: 04-18-2025 Comprehensive metabolic 2000 panel - Serum or Plasma COMPREHENSIVE METABOLIC PANEL Lab Routine Hyperglycemia Chronic ITP (idiopathic thrombocytopenia) (HCC) 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 deficiency Obstructive sleep apnea syndrome Every 6 weeks for 9 Occurrences starting 04/18/2024 until 04/18/2025 [facility] Comment on above: Every 6 weeks for 9 Occurrences starting 04/18/2024 until 04/18/2025 ECG 12 lead ECG 12 lead ECG Routine Cholesteatoma of left 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 Preoperative clearance Ordered: 11/26/2024 [facility] Work Phone: Comment on above: Ordered: 11/26/2024 ECG COMPLETE ECG COMPLETE ECG 12/15/2023 11:36 AM EDT [facility] End: 04-19-2024 Ferritin [Mass/volume] in Serum or Plasma FERRITIN BLD Lab Routine Chronic ITP (idiopathic thrombocytopenia) (HCC) Every 6 weeks for 9 Occurrences starting 04/20/2023 until 04/19/2024 [facility] Work Phone: Comment on above: Every 6 weeks for 9 Occurrences starting 04/20/2023 until 04/19/2024 End: 04-18-2025 Ferritin [Mass/volume] in Serum or Plasma FERRITIN Lab Routine Hyperglycemia Chronic ITP (idiopathic thrombocytopenia) (HCC) 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 deficiency Obstructive sleep apnea syndrome Every 6 weeks for 9 Occurrences starting 04/18/2024 until 04/18/2025 [facility] Comment on above: Every 6 weeks for 9 Occurrences starting 04/18/2024 until 04/18/2025 End: 04-19-2024 Folate [Mass/volume] in Serum or Plasma FOLATE SERUM Lab Routine Chronic ITP (idiopathic thrombocytopenia) (HCC) Every 6 weeks for 9 Occurrences starting 04/20/2023 until 04/19/2024 [facility] Work Phone: Comment on above: Every 6 weeks for 9 Occurrences starting 04/20/2023 until 04/19/2024 End: 04-18-2025 Folate [Mass/volume] in Serum or Plasma FOLATE, SERUM Lab Routine Hyperglycemia Chronic ITP (idiopathic thrombocytopenia) (HCC) 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 deficiency Obstructive sleep apnea syndrome Every 6 weeks for 9 Occurrences starting 04/18/2024 until 04/18/2025 [facility] Comment on above: Every 6 weeks for 9 Occurrences starting 04/18/2024 until 04/18/2025 End: 04-19-2024 Iron and Iron binding capacity panel - Serum or Plasma IRON + TIBC Lab Routine Chronic ITP (idiopathic thrombocytopenia) (HCC) Every 6 weeks for 9 Occurrences starting 04/20/2023 until 04/19/2024 [facility] Work Phone: Comment on above: Every 6 weeks for 9 Occurrences starting 04/20/2023 until 04/19/2024 End: 04-18-2025 Iron and Iron binding capacity panel - Serum or Plasma IRON AND TIBC Lab Routine Hyperglycemia Chronic ITP (idiopathic thrombocytopenia) (HCC) 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 deficiency Obstructive sleep apnea syndrome Every 6 weeks for 9 Occurrences starting 04/18/2024 until 04/18/2025 [facility] Comment on above: Every 6 weeks for 9 Occurrences starting 04/18/2024 until 04/18/2025 Renal function 2000 panel - Serum or Plasma [facility] Renal function 1999 panel - Serum or Plasma [facility] Surgical pathology study [facility] Work Phone: Comment on above: Release Upon [...] Left leg pain 04/09/2024 10:28 AM EDT [facility] Immunizations Immunization Date Immunization Notes Care Provider [facility] 04-02-2024 influenza, high dose seasonal, preservative-free Stephanie Dumont [employer] Work Phone: [facility] 04-02-2024 influenza virus vacc ine, unspecified formulation Stephanie Dumont [employer] Work Phone: [facility] 03-25-2023 influenza (HD-IIV4) vaccine, age 65+ yr, high dose, quadrivalent, PF (FLUZONE HIGH-DOSE) Rinku Ramsey MD Work Phone: [facility] 03-25-2023 influenza virus vacc ine, unspecified formulation Jayden Connelly APRN.EMERGENCY DEPARTMENT Work Phone: [facility] 04-20-2022 influenza, high-dose , quadrivalent vaccine (FLUZONE HIGH DOSE QUADRIVALENT) Jayden Connelly APRN.EMERGENCY DEPARTMENT Work Phone: [facility] 04-20-2022 influenza virus vacc ine, unspecified formulation Rinku Ramsey MD Work Phone: [facility] 03-23-2021 influenza, high-dose , quadrivalent vaccine (FLUZONE HIGH DOSE QUADRIVALENT) Jayden Connelly APRN.EMERGENCY DEPARTMENT Work Phone: [facility] 10-17-2020 COVID-19 vaccine, fu ll dose (MODERNA) Jayden Dayton [employer]ION SOCIAL WORKER.EMERGENCY DEPARTMENT Work Phone: [facility] 09-19-2020 COVID-19 vaccine, fu ll dose (MODERNA) Jayden Connelly DELINQU[employer]Y PREVENTION SOCIAL WORKER.EMERGENCY DEPARTMENT Work Phone: [facility] 03-18-2020 influenza, high-dose , quadrivalent vaccine (FLUZONE HIGH DOSE QUADRIVALENT) Jayden Connelly DELINQUENCY PREVENTION SOCIAL WORKER.EMERGENCY DEPARTMENT Work Phone: [facility] 04-01-2019 influenza, high dose seasonal, preservative-free Jayden Connelly DELINQUENCY PREVENTION SOCIAL WORKER.EMERGENCY DEPARTMENT Work Phone: [facility] 04-01-2019 pneumococcal polysaccharide vaccine, 23 valent Jayden Connelly DELINQUENCY PREVENTION SOCIAL WORKER.EMERGENCY DEPARTMENT Work Phone: [facility] 03-23-2018 influenza, high dose seasonal, preservative-free Jayden Connelly DELINQUENCY PREVENTION SOCIAL WORKER.EMERGENCY DEPARTMENT Work Phone: [facility] 03-23-2018 pneumococcal conjuga te vaccine, 13 valent Jayden Connelly DELINQU[employer]Y PREVENTION SOCIAL WORKER.EMERGENCY DEPARTMENT Work Phone: [facility] 04-08-2017 influenza, high dose seasonal, preservative-free Jayden Connelly DELINQUENCY PREVENTION SOCIAL WORKER.EMERGENCY DEPARTMENT Work Phone: [facility] 09-06-2016 pneumococcal conjuga te vaccine, 13 valtamar Connelly DELINQUENCY PREVENTION SOCIAL WORKER.EMERGENCY DEPARTMENT Work Phone: [facility] Payers Date Payer Category Payer Private Health Insurance [facility] DUAL COMPLETE [facility] DUAL COMPLETE [id number] 2023-Present [address] [address] [place] [address] [id number] 2023 Medicare [id number] [id number] 2023 Self-pay [id number] 2022 Medicare (Managed Care) 1.2. [id number] 2022 Private Health Insurance [id number] [facility] AARP MEDICAR [address] [facility] AARP MEDICARE O [id number] 2021-Present [phone] [address] [address] [place] [address] HMO [id number] 2015 Medicare MEDICARE MEDICAR E A AND B [id number] 2015-[address] [place] [address] Medicare [id number] 2015 Medicare [id number] [id number]. [id number] 1950 Unknown [id number] 2.16840.1.917621.3.579.2. 1244 1950 Unknown [id number] 2.16840.1.410072.3.579.2. 124 1950 Unknown [id number] 2.840.1.513697.3.579.2. 1243 1950 Unknown [id number] 2.16840.1.394403.3.579.2. 124 1950 Unknown [id number] 2.16.840.1.597623.3.579.2. 128 1950 Unknown [id number] 2.16.840.1.380475.3.579.2. 1285 1950 Unknown [id number] 2.16.840.1.952027.3.579.2. 1285 1950 Unknown [id number] 2.16.840.1.369724.3.579.2. 1285 1950 Unknown [id number] 2.16.840.1.681627.3.579.2. 1285 1950 Unknown [id number] 2.16.840.1.208127.3.579.2. 1285 1950 Unknown [id number] 2.16.840.1.260519.3.579.2. 1285 1950 Unknown [id number] 2.16.840.1.789055.3.579.2. 1285 1950 Unknown [id number] 2.16.840.1.056262.3.579.2. 1285 1950 Unknown [id number] 2.16.840.1.053536.3.579.2. 1285 1950 Unknown [id number] 2.16840.1.425731.3.579.2. 1285 1950 Unknown [id number] 2.16.840.1.737574.3.579.2. 1285 1950 Unknown [id number] 2.16840.1.852742.3.579.2. 1285 1950 Unknown [id number] 2.16.840.1.086837.3.579.2. 1285 1950 Unknown [id number] 2.16.840.1.110418.3.579.2. 1285 1950 Unknown [id number] 2.16.840.1.129248.3.579.2. 1285 1950 Unknown [id number] 2.16.840.1.829911.3.579.2. 2 1950 Unknown [id number] 2.16.840.1.943954.3.579.2. 1259 1950 Unknown [id number] 2.16.840.1.235192.3.579.2. 1258 1950 Unknown [id number] 2.16.840.1.131456.3.579.2. 1258 1950 Unknown [id number] 2.16.840.1.828231.3.579.2. 1258 1950 Unknown [id number] 2.16.840.1.733695.3.579.2. 1258 1950 Unknown [id number] 2.16.840.1.268495.3.579.2. 1258 1950 Unknown [id number] 2.16.840.1.147447.3.579.2. 1258 1950 Unknown [id number] 2.16.840.1.824744.3.579.2. 1258 1950 Unknown [id number] 2.16.840.1.835060.3.579.2. 1258 1950 Unknown [id number] 2.16.840.1.707666.3.579.2. 1258 1950 Unknown [id number] 2.16.840.1.853040.3.579.2. 1258 1950 Unknown [id number] 2.16.840.1.126444.3.579.2. 1258 1950 Unknown [id number] 2.16.840.1.333355.3.579.2. 1258 1950 Unknown [id number] 2.16.840.1.204737.3.579.2. 1259 Medicare [id number] Medicare [id number] 2.16.840.1.182171.19 Unknown O [id number] Unknown [id number] 2.16.840.1.733411.3.579.2. 531 Unknown [id number] 2.16840.1.467959.3.579.2. 531 Social History Date Type Detail Facility Start: 09-16-2021 End: 05-12-2022 Tobacco smoking status NHIS Light tobacco smoker [facility] History of tobacco use Cigarette Smoker [facility] Start: 09-16-2021 End: 02-12-2024 Tobacco use and exposure Smokeless tobacco non-user [facility] Start: 09-16-2021 End: 02-14-2025 Alcohol intake Current [facility] [place] Start: 1950 Sex Assigned At Not on file [facility] Start: 10-18-2021 End: 11-26-2024 Exposure to SARS-CoV-2 (event) Not sure [facility] Start: 03-03-2016 End: 02-12-2024 Tobacco smoking status NHIS Smokes tobacco daily [facility] Start: 01-26-2023 End: 05-14-2024 Sex Assigned At [facility] History of tobacco use Passive smoker [facility] Start: 1950 Sex Assigned At Female [facility] Start: 01-26-2023 End: 05-14-2024 History of Social function [facility] Start: 03-01-2016 End: 10-16-2023 Adult Depression Screening Assessment 0 [facility] Start: 08-16-2023 End: 04-02-2025 Alcohol intake Lifetime non-drinker (finding) [facility] Start: 09-20-2023 End: 08-21-2024 Tobacco smoking status NHIS Smoker (finding) [facility] Start: 08-21-2024 Sex Female (finding) [facility] [place] NEGATED: Highlighted rowStart: NINF History of tobacco use Passive smoker [facility] Work Phone: Medical Equipment Procedure Code Equipment Code Equipment Origin al Text Equipment Identifier Dates [place], Centered, Total - Sn/A - [id number] Start: 02-05-2025 Goals Date Patient Goal Desired Activity /State Personal health goal Functional Status Date Assessment Result Facility 02-05-2025 [place] - 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 - recent [C-SSRS] [facility] Work Phone: 11-26-2024 Patient Health Quest ionnaire 2 item (PHQ-2) [Reported] [facility] Work Phone: 08-04-2022 Are you deaf, or do you have serious difficulty hearing No 08/04/2022 2:24 PM Jayden Berrios, MIRIAM.EMERGENCY DEPARTMENT No [facility] Work Phone: 08-04-2022 Are you blind, or do you have serious difficulty seeing, even when wearing glasses No 08/04/2022 2:24 PM Jayden Berrios, DELINQUENCY PREVENTION SOCIAL WORKER.EMERGENCY DEPARTMENT No [facility] 08-04-2022 Do you have serious difficulty walking or climbing stairs No 08/04/2022 2:24 PM Jayden Berrios, DELINQUENCY PREVENTION SOCIAL WORKER.EMERGENCY DEPARTMENT No [facility] 08-04-2022 Do you have difficul ty dressing or bathing No 08/04/2022 2:24 PM Jayden Berrios, DELINQUENCY PREVENTION SOCIAL WORKER.EMERGENCY DEPARTMENT No [facility] 08-04-2022 Because of a physica l, mental, or emotional condition, do you have difficulty doing errands alone such as visiting a physician's office or shopping No 08/04/2022 2:24 PM Jayden Berrios, DELINQUENCY PREVENTION SOCIAL WORKER.EMERGENCY DEPARTMENT No [facility] Mental Status Date Assessment Result Facility 08-04-2022 Because of a physica l, mental, or emotional condition, do you have serious difficulty concentrating, remembering, or making decisions No 08/04/2022 2:24 PM Jayden Berrios, DELINQUENCY PREVENTION SOCIAL WORKER.EMERGENCY DEPARTMENT No [facility] Clinical Notes 05-12-2021 to 04-02-2025 Telephone Encounter - Rosalva Mayo - 04/02/2025 2:11 PM EDTTelephone Encounter - Rosalva Mayo - 04/02/2025 2:11 PM EDTTelephone Encounter - Mar Mayo MD - 04/02/2025 1:59 PM EDTAttachments Note Date & Type Note Facility 04-02-2025 Telephone encounter Note Called pt/pt verbalized understanding. [facility] 04-02-2025 Miscellaneous Notes Called pt/pt verbalized understanding. I can try something less likely to work, but if it doesn't there is no alternative Pt called in/the rx that was prescribed to the pt from [facility] is being denied by her insurance. It is $110.00 and she cannot afford it. Is there something else that she can use? documented in this encounter [facility] 04-02-2025 Telephone encounter Note I can try something less likely to work, but if it doesn't there is no alternative [facility] 04-02-2025 Telephone encounter Note Pt called in/the rx that was [facility] to the pt [email or web address] is being denied by her insurance. It is $110.00 and she cannot afford it. Is there something else that she can use? [facility] 04-02-2025 History of Presen t illness Narrative Subjective Patient ID: Andrei Fish is a 74 y.o. female who presents for Thyroid Nodule (6 month ultrasound 03/19/25 [facility]) Thyroid US shows a 13mm RUL nodule compared to 15, a 22mm RML nodule compared to 20, and a 20mm LML nodule compared to 23. Family History Problem Relation Name Age of Onset Diabetes Mother Hypertension Mother Heart disease Mother Cancer Father Breast cancer Sister Heart disease Sibling Cancer Sibling Active Ambulatory Problems Diagnosis Date Noted Chronic ITP (idiopathic thrombocytopenia) (HCC) 05/26/2016 Disease of thyroid gland 06/28/2022 Essential [...] Thyroid nodule 02/26/2024 Coronary artery disease involving mohegan coronary artery of mohegan heart 02/26/2024 Calcification of aortic valve 02/26/2024 PAH (pulmonary artery hypertension) (HCC) 03/27/2024 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 deficiency 03/05/2024 Encounter for screening mammogram for malignant neoplasm of breast 04/04/2024 Other chest pain 04/04/2024 Posterior left knee pain 04/04/2024 Pre-diabetes 04/05/2024 Diarrhea 04/24/[address] nodules on CT 05/07/2024 Encounter for subsequent annual wellness visit (AWV) in Medicare patient 05/14/2024 Chronic kidney disease, stage 3b (CMS-HCC) 12/25/2024 DARYL (acute kidney injury) 01/06/2025 Lumbar spondylosis 01/15/2025 Abdominal aortic aneurysm (AAA) without rupture 01/21/2025 Resolved Ambulatory Problems Diagnosis Date Noted Lupus 03/03/2016 Ruptured ear drum, left 06/06/2023 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 Elevated glucose level 04/04/2024 Chronic kidney disease, stage 3a (CMS-HCC) 08/15/2024 Family history of cancer 08/15/2024 Degeneration of intervertebral disc of lumbar region with lower extremity pain 01/15/2025 Past Medical History: Diagnosis Date Hypertension Past Surgical History: Procedure Laterality Date APPENDECTOMY BI MAMMO GUIDED LOCALIZATION BREAST LEFT Left 03/28/2017 BI MAMMO GUIDED LOCALIZATION BREAST LEFT 03/28/2017 BREAST BIOPSY Left BREAST LUMPECTOMY Left 07/2015 BREAST SURGERY CHOLECYSTECTOMY COLONOSCOPY 2008 EYE SURGERY FRACTURE SURGERY Left leg HYSTERECTOMY TYMPANOPLASTY Left 02/05/2025 Dr Nuno Allergies Allergen Reactions Vancomycin Other States had burning sensation t/o entire body. (Infectious disease) States medication was given too fast. Ihtxcuw-Suigat-Hxltz Pertussis Rash Current Outpatient Medications on File [...] if needed ergocalciferol (Vitamin D-2) 1.25 MG (02187 UT) capsule Take 50,000 Units by mouth 1 (one) time per week Fostamatinib Disodium (Tavalisse) 100 MG tablet Take 100 mg by mouth in the morning and 100 mg before bedtime. hydroCHLOROthiazide (HYDRODiuril) 25 MG tablet Take 25 mg by mouth Daily pilocarpine (Salagen) 5 MG tablet Take 1 tablet by mouth in the morning and 1 tablet in the evening and 1 tablet before bedtime. (Patient taking differently: Take 1 tablet by mouth in the morning and 1 tablet in the evening and 1 tablet before bedtime. JUST NEEDED PER PT.) [DISCONTINUED] sodium bicarbonate 650 MG tablet Take 650 mg by mouth in the morning and 650 mg before bedtime. [DISCONTINUED] spironolactone (Aldactone) 25 MG tablet Take 25 mg by mouth in the morning. losartan (Cozaar) 25 MG tablet Take 50 mg by mouth at bedtime metoprolol succinate XL (Toprol-XL) 25 MG 24 hr tablet Take 0.5 tablets (12.5 mg) by mouth Daily Do not crush or chew. 45 tablet 1 No current facility-administered medications on file prior to visit. Objective Last Recorded Vitals Vitals: 04/02/25 1106 BP: 122/74 Pulse: 66 ENT Physical Exam Constitutional Appearance: patient appears well-developed, well-nourished and well-groomed, Communication/Voice: communication appropriate for developmental age; vocal quality normal; Assessment/Plan Diagnoses and all orders for this visit: Thyroid nodule Stable MNG. Repeat US in 6 mo. documented in this encounter [facility] 03-28-2025 Note [facility] 02-14-2025 Note [facility] 02-14-2025 History of Presen t illness Narrative Images from the original note were not included. NAME: Andrei Fish [facility] NO.: [id number] DATE OF SERVICE: January 03, 2025 ([place]) [...] She is planning a two-week trip to [place] and requests hydration supplements due to the [...] intake. She is scheduled to see her plumbing hardware assembler in January and her primary care physician [...] is going to follow up with her [employer]NAGERS regarding pulmonary nodule that has been stable [...] having a mammogram and dexa scan at [facility] per her PCP. She states [...] 08/29/2022 and then a follow-up with her plumbing hardware assembler on 09/07/2022. Overall, she is doing well [...] they are slightly increased. Got back from [place] and saw her sisters and had a [...] why she was going to see a plumbing hardware assembler for her blood pressure. Patient also has [...] which included preparing to see the patient, fbef-oh-vmnw patient care, completing clinical documentation, performing a medically appropriate examination, counseling and educating the patient/family/caregiver, ordering medications, tests, or procedures, independently interpreting results (not separately reported), communicating results to the patient/family/caregiver, and care coordination (not separately reported). Jayden Connelly APRN.[facility]PH Hematology and Oncology Services Provided at: [place], [place] CC: Dr. Atif Graf documented in this encounter [facility] 02-05-2025 application release manager Note Pt and at bedside educated on and provided with discharge instructions. Both state an understanding of the teaching and all questions answered at this time. [facility] 02-05-2025 Miscellaneous Notes Pt and at bedside educated on and provided with discharge instructions. Both state an understanding of the teaching and all questions answered at this time. documented in this encounter [facility] Work Phone: 02-05-2025 Hospital Discharg e instructions [...] make specific suggestions for your care. Call [phone] ([phone]) or [phone] (after-hours) any time day or night if you have any of the following: Bad smell coming out of your ear Severe swelling around your ear Any questions Pain in your ear Redness around your ear Severe dizziness The following attachments cannot be sent through Care Everywhere.General Anesthesia Discharge Instructions ([place])Acute Pain Discharge Instructions, Adult ([place])Surgical Wound Discharge Instructions ([place])documented in this encounter [facility] Work Phone: 02-05-2025 History and physical note [...] at their earliest convenience. Susanna Graf MD [facility] Work Phone: 02-05-2025 History and physical note [...] Susanna Graf MD documented in this encounter [facility] Work Phone: 01-28-2025 Telephone encounter Note Yes, just CBC. Thanks, Jayden Connelly APRN.EMERGENCY DEPARTMENT [facility] 01-28-2025 Miscellaneous Notes Yes, just CBC. Jayden Guadalupe APRN.EMERGENCY DEPARTMENT Pt scheduled for lab/possible aranesp 01/31/25. Standing orders too soon to use. 02/15/25 HM appt labs placed. Jayden: does pt just need a cbc order for 01/31? Desirae Pimentel, RN documented in this encounter [facility] 01-28-2025 Telephone encounter Note Pt scheduled for lab/possible aranesp 01/31/25. Standing orders too soon to use. 02/15/25 HM appt labs placed. Jayden: does pt just need a cbc order for 01/31? Desirae Pimentel, RN [facility] 01-27-2025 Evaluation note Diagnosis Onset Date Resolution [...] 2 025 9:58am Essential hypertension acute Se pt2024 9:58am Obesity due to excess calories acute March 13 025 9:58am [facility] Work Phone: 1(290) 998-146807-09-2025 History of Present illness Narrative* Stephanie Dumont [...] disease) States medication was given too fast. Zevoirk-Xpqfpf-Nkqfi Pertussis Rash REVIEW OF SYMPTOMS: Review of [...] of the risks of continued smoking: stroke, SC, all forms of cancer, lung disease, and [...] 3 views Chronic kidney disease, stage 3b ([facility]) - Primary Goal control blood pressures Check [...] of the risks of continued smoking: stroke, SC, all forms of cancer, lung disease, and [...] EDTAssociated Problem(s): Chronic kidney disease, stage 3b ([facility]-HCC) Goal control blood pressures Check labs semi annually as well as prn sxs changes Has aldactone on hold until sees Nephrolgoist documented in this encounterOzarks Community [id number] History of Present illness Narrative* Stephanie Dumont NP - 01/06/2025 12:46 PM EDTAssociated Problem(s): DARYL (acute kidney injury) Values returning more to baseline Cont with nephrology * Stephanie Dumont NP - 01/06/2025 12:45 PM EDTAssociated Problem(s): Tobacco dependence The patient has been advised of the risks of continued smoking: stroke, SC, all forms of cancer, lung disease, and [...] having weakness and fatigue. Bilateral swelling * Stephanieshannan Dumont NP - 01/06/2025 11:30 AM EDT [...] disease) States medication was given too fast. Keywkzc-Dyeczw-Wxirv Pertussis Rash REVIEW OF SYMPTOMS: Review of [...] of the risks of continued smoking: stroke, SC, all forms of cancer, lung disease, and [...] meds: hydrochlorothiazide, losartan, metoprolol, documented in this [facility]06-30-2025 Instructions* Patient Instructions* Stephanie Dumont NP - 01/06/2025 11:30 AM EDT Keep appt with Dr Hernandes Keep appt with Kidney dr Arriola documented in this [facility]06-27-20[facility] History of Present illness Narrative* Jayden Connelly APRN.EMERGENCY DEPARTMENT - 01/03/2025 2:16 PM EDT Images from the original note were not included. NAME: Andrei Fish CLINIC NO.: [id number] DATE OF SERVICE: January 03, 2025 ([place]) [...] intake. She is scheduled to see her plumbing hardware assembler in January and her primary care physician [...] is going to follow up with her [employer] regarding pulmonary nodule that has been stable [...] having a mammogram and dexa scan at [facility] per her PCP. She states [...] 08/29/2022 and then a follow-up with her plumbing hardware assembler on 09/07/2022. Overall, she is doing well [...] as they are slightlyincreased. Got back from [place] and saw her sisters and had a [...] her. Updated Visit, July 16, 2021: Andrei Fsih returns for follow-up. [...] why she was going to see a plumbing hardware assembler for her blood pressure. Patient also has [...] which included preparing to see the patient, lpkd-fk-xhhu patient care, completing clinical documentation, performing a medically appropriate examination, counseling and educating the patient/family/caregiver, ordering medications, tests, or procedures, independently interpreting results (not separately reported), communicating results to the patient/family/caregiver, and care coordination (not separately reported). Jayden Connelly APRN.CNP Hematology and Oncology Services Provided at: [place], [place] CC: Dr. Atif Graf documented [facility] History of Present illness Narrative* Stephanie Dumont, JORDI - 12/25/2024 11:54 AM EDTAssociated Problem(s): Diarrhea Ongoing since 1 week, worsening in fatigue and weakness Orthostatics in office today: Lying 112/62, sitting 102/62, and standing 86/54 I do suspect dehydration is an issue, d/t these sxs and BP and age and medical conditions, I am going to have her go to [facility] ER for evaluation.she is agreeable to [...] had labs done on Monday at the [facility] for anemia- she goes back in [...] had labs done on Monday at the [facility] for anemia- she goes back in [...] disease) States medication was given too fast. Yrvvfyz-Nxuzih-Nhgkm Pertussis Rash REVIEW OF SYMPTOMS: Review of [...] of the risks of continued smoking: stroke, SC, all forms of cancer, lung disease, and [...] free T3, free Coronary artery disease involving mohegan coronary artery of mohegan heart Takes b clarke Pre-diabetes No current [...] going to have her go to [facility] ER for evaluation.she is agreeable to [...] of the risks of continued smoking: stroke, SC, all forms of cancer, lung disease, and [...] EDTAssociated Problem(s): Chronic kidney disease, stage 3b ([facility]) Goal control blood pressures Check labs semi [...] AM EDTAssociated Problem(s): Coronary artery disease involving mohegan coronary artery of mohegan heart Takes b clarke * Stephanie Dumont [...] that manages your ADALBERTO: documented in this [facility]06-18-2025 Instructions* Patient Instructions* Stephanie Dumont NP - 12/25/2024 11:00 AM EDT Proceed to ER for evaluation Also will provide an order for you for thyroid labs with next lab draw Fu in 3 weeks documented in this encounterOzarks Community [id number] History of Present illness Narrative* Susanna Graf MD - 11/26/2024 3:00 PM EDT Images from the original note were not included. History Of Present Illness: Andrei Fish is a 73 y.o. 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 Augie Tyler at [facility]. She is now s/p left side [...] December [address] Augie Tyler at [facility]. She is now s/p left side [...] follow up ergocalciferol (Vitamin D-2) 1.25 MG (63707 UT) capsule 1 capsule, Weekly fostamatinib (TAVALISSE) [...] December [address] Augie Tyler at [facility]. She is now s/p left side [...] signing my name below, I, Emani Kapadia, Scribe attest that this documentation has been prepared under the direction and in the presence of Susanna Vasquez MD. I have reviewed the documentation as scribed by Marshal Kapadia and agree with the notes. Susanna Graf MD documented in [facility] Work Phone: 1(776) 642-498905-16-2025 [facility]High[facility]05-[facility] History of Present illness Narrative* Joanne Alvarez MA - 11/22/2024 2:36 PM EDT Patient Identification confirmed: yes. Injection given and documented on SEP per provider order. Joanne Alvarez MA documented in this encounterReg[facility] [place] [facility] Instructions* Patient Instructions* Emani Brizuela - 11/22/2024 2:13 PM EDT B12 shot today and q 6 weeks In 2 weeks, start Aranesp q 2 weeks for anemia Labs q 2 weeks Continue Tavalisse 100mg BID RTC in 6 weeks - coordinate with B12 & Aranesp Labs same day documented in this encounterReg[facility] [place]25 History of Present illness Narrative* Rinku Ramsey MD - 11/22/2024 2:00 PM EDT Images from the original note were not included. NAME: FishAndrei CLINIC NO.: [id number] DATE OF SERVICE: November 22, 2024 ([place]) Some elements in this clinic note that [...] is going to follow up with her [employer] regarding pulmonary nodule that has been stable [...] having a mammogram and dexa scan at [facility] per her PCP. She states [...] 08/29/2022 and then a follow-up with her plumbing hardware assembler on 09/07/2022. Overall, she is doing well [...] as they are slightlyincreased. Got back from [place] and saw her sisters and had a [...] why she was going to see a plumbing hardware assembler for her blood pressure. Patient also has [...] 118 DIAGNOSIS: (D69.3) Chronic ITP (idiopathic thrombocytopenia) ([facility]) (primary encounter diagnosis) (N18.32) Stage 3b chronic [...] which included preparing to see the patient, bjfn-sd-qubb patient care, completing clinical documentation, performing a medically appropriate examination, counseling and educating the patient/family/caregiver, ordering medications, tests, or procedures, independently interpreting results (not separately reported), communicating results to the patient/family/caregiver, and care coordination (not separately reported). Rinku Ramsey MD, CPE Hematology and Oncology Services Provided at: [place], [place] Scribe Attestation: This note was scribed [...] CC: Dr. Atif Graf documented in this encounterReg[facility] [place]05-16-2025 [facility]High[facility]04-30-2025 NoteHigh[facility]04-30-2025 History of Present illness Narrative* Katheryn [...] as appropriate. KI Gar documented in this encounterRegency [facility] [place]04-04-2025 History of Present illness Narrative* Li Frank APRN.CNP - 10/11/2024 10:30 AM EDT Images from the original note were not included. NAME: Andrei Fish CLINIC NO.: [id number] DATE OF SERVICE: October 11, 2024 ([place]) [...] is going to follow up with her [employer] regarding pulmonary nodule that has been stable [...] having a mammogram and dexa scan at [facility] per her PCP. She states [...] 08/29/2022 and then a follow-up with her plumbing hardware assembler on 09/07/2022. Overall, she is doing well [...] as they are slightlyincreased. Got back from [place] and saw her sisters and had a [...] why she was going to see a plumbing hardware assembler for her blood pressure. Patient also has [...] family history on file. Li Frank APRN, [employer]-C, [facility] Hematology and Oncology Services Provided at: [place], [place] CC: Dr. Atif Graf documented in this encounterJill Ville [address]-04-2025 NoteHigh[facility] Hospital02-21-2025 NoteHighland [facility] Hospital02-21-2025 History of Present illness Narrative* Joanne Alvarez MA - 08/30/2024 11:24 AM EST Patient Identification confirmed: yes. Injection given and documented on SEP per provider order. Joanne Alvarez MA documented in this encounterRegency [facility] [place]02-21-2025 History of Present illness Narrative* Li Frank APRN.CNP - 08/30/2024 11:00 AM EST NAME: Andrei Fish [facility] NO.: [id number] DATE OF SERVICE: August 30, 2024 ([place]) [...] is going to follow up with her [employer] regarding pulmonary nodule that has been stable [...] having a mammogram and dexa scan at [facility] per her PCP. She states [...] 08/29/2022 and then a follow-up with her plumbing hardware assembler on 09/07/2022. Overall, she is doing well [...] as they are slightlyincreased. Got back from [place] and saw her sisters and had a [...] why she was going to see a plumbing hardware assembler for her blood pressure. Patient also has [...] [facility] Hematology and Oncology Services Provided at: [place], [place] CC: Dr. Atif Graf documented in this encounterRegency Hospital [place]02-21-2025 NoteHigh[facility] Hospital02-06-2025 History of Present illness Narrative* Stephanie [...] disease) States medication was given too fast. Xyyjiyi-Docvjx-Gquba Pertussis Rash REVIEW OF SYMPTOMS: Review of [...] of the risks of continued smoking: stroke, SC, all forms of cancer, lung disease, and [...] No current treatment Coronary artery disease involving mohegan coronary artery of mohegan heart (CMS/HCC) Takes b clarke PAH (pulmonary [...] of the risks of continued smoking: stroke, SC, all forms of cancer, lung disease, and [...] Problem(s): Chronic kidney disease, stage 3a (HCC) ([facility]) Continue with Nephrology dr arriola Keep BP at goal * Stephanie Dumont NP - 08/15/2024 6:47 AM ESTAssociated Problem(s): PAH (pulmonary artery hypertension) ([facility]) Per ECHO Elevated pressures, has hx of ADALBERTO, not treated * Stephanie Dumont NP - 08/15/2024 6:47 AM ESTAssociated Problem(s): Essential hypertension ([facility] [facility]) Please check blood pressure daily and record DASH diet Limit caffeine Take medication as directed Contact office if chest pain, pressure, dizziness, shortness of breath, swelling legs Recommend slow position changes Current meds: hydrochlorothiazide, losartan, metoprolol, aldactone * Stephanie Dumont NP - 08/15/2024 6:46 AM ESTAssociated Problem(s): Coronary artery disease involving mohegan coronary artery of mohegan heart ([facility]) Takes b clarke * Stephanie Dumont NP - 08/15/2024 6:45 AM ESTAssociated Problem(s): Obstructive sleep apnea syndrome .L documented in this [facility]02-06-2025 Instructions* Patient Instructions* Stephanie Dumont NP - 08/15/2024 10:30 AM EST I will place a referral to [facility] in [place] For cancer gene testing, they should call you for this CT chest: due 12/01, we will call you documented in this [facility]01-22-2025 Telephone encounter Note* Telephone Encounter - Krista Harden RPh - 07/31/2024 11:12 AM EST [facility] notified of appeal being approved 07/31/24. They will reach out to [facility] to complete enrollment application. I let Odalicia a voice mail making her aware of this outreach call from [facility]. Emiliano Harden PharmD, BCOP [facility] Work Phone: [phone] Miscellaneous Notes* Telephone Encounter - Krista Harden RPh - 07/31/2024 11:12 AM EST [facility] notified of appeal being approved 07/31/24. They will reach out to [facility] to complete enrollment application. I let Odalicia a voice mail making her aware of this outreach call from [facility]. Emiliano Harden PharmD, BCOP * Telephone Encounter - Krista Harden RPh - 07/29/2024 10:25 AM EST Approved on Appeal! I will notify [facility] 07/30/24, as they are closed for Day observance. The out of pocket cost is $2000 (medicare deductible for 2024) or can enroll in Medicare Payment Plan, as I explained to Andrei on the phone. Thank you. Emiliano Harden PharmD, MELECIOOP * Telephone Encounter - Krista Harden RP - 07/24/2024 11:[address] Landin please see below rationale as to why Andrei' insurance has denied her Tavalisse at his time (despite her being stable on therapy since 2020) I can appeal, but will need your assistance in that matter. Thank you Emiliano Harden PharmD, BCOP * Telephone Encounter - Krista Harden RP - 07/23/2024 1:02 PM EST Ambulatory Pharmacy Prior Authorization Note Provider Intervention Required?: No- Pharmacy completed on your behalf. Rx Plan: [employer]: Tavalisse Cover My Meds Da Silva: [id number] Determination: Denied PA Denied because: Formulary Tavalisse [...] not appropriate for you Prior Authorization/Case #: [id number] Prior Authorization Expiration: Time to PA Submission in CMM: 15 min Time to PA Determination in CMM: 2 days Additional Information: Additional information faxed over 07/23/24 at insurer's request For questions relating to this submission, please contact [facility] at [phone] * Telephone Encounter - Krista Harden RPh [...] Emiliano Harden PharmD, BCOP documented in this encounterReg[facility]01-20-2025 Telephone encounter Note * Telephone Encounter - [...] phone. Thank you. Emiliano Harden PharmD, BCOP [facility]01-15-2025 Telephone encounter Note* Telephone Encounter - Krista Harden RPh - 07/24/2024 11:[address] Landin please see below rationale as to why Andrei' insurance has denied her Tavalisse at his time (despite her being stable on therapy since 2020) I can appeal, but will need your assistance in that matter. Thank you Emiliano Harden, PharmD, BCOP [facility]01-14-2025 Telephone encounter Note* Telephone Encounter - Krista Harden RPh - 07/23/2024 1:02 PM EST Ambulatory Pharmacy Prior Authorization Note Provider Intervention Required?: No- Pharmacy completed on your behalf. Rx Plan: [employer] [facility]: Tavalisse Cover My Meds Da Silva: [id number] Determination: Denied PA Denied because: Formulary Tavalisse [...] not appropriate for you Prior Authorization/Case #: [id number] Prior Authorization Expiration: Time to PA Submission in CMM: 15 min Time to PA Determination in CMM: 2 days Additional Information: Additional information faxed over 07/23/24 at insurer's request For questions relating to this submission, please contact [facility] at [phone] [facility]01-14-2025 Telephone encounter Note* Telephone Encounter - Krista [...] the payment plan. Emiliano Harden, PharmD, BCOP [facility]01-02-2025 [facility]High[facility]01-[facility] History of Present illness Narrative* Monica Dowling MA - 07/11/2024 11:28 AM EST Patient Identification confirmed: yes. Injection given and documented on SEP per provider order. Monica Dowling MA documented in this encounterRegency Hospital [facility]01-02-2025 Instructions* Patient Instructions* Emani Brizuela - 07/11/2024 11:13 AM EST B12 shot today and q 6 weeks Continue Tavalisse 100 mg BID RTC in 6 weeks Labs same day documented in this encounterRegency Hospital [facility]01-02-2025 History of Present illness Narrative* Li Frank APRN.CNP - 07/11/2024 11:00 AM EST Images from the original note were not included. NAME: Andrei Fish CLINIC NO.: [id number] DATE OF SERVICE: July 11, 2024 (Hong) [...] is going to follow up with her [employer]ALTH [employer]NAGERS regarding pulmonary nodule that has been stable [...] having a mammogram and dexa scan at [facility] per her PCP. She states [...] 08/29/2022 and then a follow-up with her plumbing hardware assembler on 09/07/2022. Overall, she is doing well [...] as they are slightlyincreased. Got back from [place] and saw her sisters and had a [...] why she was going to see a plumbing hardware assembler for her blood pressure. Patient also has [...] No No family history on file. Li Farnk APRN, [employer]-C, [facility] Hematology [facility] Oncology Services Provided at: [place], [place] Scribe Attestation: This note was scribed [...] again. Monica Dowling MA documented in this encounterRegency Hospital [facility]01-02-2025 [facility]High[facility]01-02-2025 NoteHigh[facility]11-22-2024 NoteOrthopedic Surgery Subjective Follow-up and Pain [...] B12, and Folate levels obtained at the [facility] on 05/30/2024 were normal except: Hemoglobin 10.5. [...] documentation. There may be additional comments below. [facility]11-21-2024 Nurse Note* Monica Dowling MA - 05/30/2024 11:37 AM EST Patient Identification confirmed: yes. Injection given and documented on MAR per provider order. Monica Dowling MA [facility]11-21-2024 Nurse Note* Monica Dowling MA - 05/30/2024 11:37 AM EST Patient Identification confirmed: yes. Injection given and documented on MAR per provider order. Monica Dowling MA documented in this encounterRegency Hospital [facility]11-21-2024 Instructions* Patient Instructions* Rinku Ramsey MD - 05/30/2024 11:01 AM EST B12 shot today and q 6 weeks Continue Tavalisse 100 mg BID RTC in 6 weeks Labs same day documented in this encounterRegency Hospital [facility]11-21-2024 History of Present illness Narrative* Rinku Ramsey MD - 05/30/2024 10:40 AM EST Images from the original note were not included. NAME: Andrei Fish [facility] NO.: [id number] DATE OF SERVICE: May 30, 2024 (Joon) [...] is going to follow up with her [employer] regarding pulmonary nodule that has been stable [...] having a mammogram and dexa scan at [facility] per her PCP. She states [...] 08/29/2022 and then a follow-up with her plumbing hardware assembler on 09/07/2022. Overall, she is doing well [...] as they are slightlyincreased. Got back from [place] and saw her sisters and had a [...] why she was going to see a plumbing hardware assembler for her blood pressure. Patient also has [...] which included preparing to see the patient, mgzj-sh-wnif patient care, completing clinical documentation, obtaining and/or reviewing separately obtained history, performing a medically appropriate examination, counseling and educating the patient/family/caregiver, ordering medications, tests, or procedures, communicating with other HCPs (not separately reported), independently interpreting results (not separately reported), communicating results to the patient/family/caregiver, and care coordination (not separately reported). Rinku Ramsey MD, CPE Hematology [facility] Oncology Services Provided at: [place], [place] Scribe Attestation: This note was scribed [...] CC: Dr. Atif Graf documented in this encounterRegency Hospital [facility]11-21-2024 NoteHighland District Hospital11-14-2024 Telephone encounter Note* Telephone Encounter - Stephanie Dumont NP - 05/23/2024 7:38 AM EST Please contact pt, I reviewed her notes from Dr Mayo, I see she is going to see him back in a fewmonths, he also recommended she see an general utility worker d/t one of her thyroid labs trending toward an over active state. It is time to recheck those thyroid labs and if they are still off then I willsend her to see endo No fasting is needed for labs, have her get these done in the next week please [place] [facility] [id number] Miscellaneous Notes* Telephone Encounter - Stephanie Dumont NP - 05/23/2024 7:38 AM EST Please contact pt, I reviewed her notes from Dr Mayo, I see she is going to see him back in a fewmonths, he also recommended she see an general utility worker d/t one of her thyroid labs trending toward an over active state. It is time to recheck those thyroid labs and if they are still off then I willsend her to see endo No fasting is needed for labs, have her get these done in the next week please [place] documented in this encounterOzarks Community [id number] NoteHX LT TIB/FIB FX WITH EXTERNAL FIX; [...] scan films to appointment with Dr Segura [facility]11-06-2024 History of Present illness Narrative* Mar Mayo MD - 05/15/2024 2:20 PM EST Subjective Patient ID: Andrei Fish is a 73 y.o. female who presents for Thyroid Nodule (FNA 04/16/24 [facility]) Pt had a thyroid US after found to have a low TSH. US showed a 13mm and 20mm RT TR4 nodule and a 21mm LT TR3 nodule. Path sowed a [place] 2 nodule. No radiation exposure. No family h/o thyroid CA. TSH 0.29 Family History Problem Relation Name Age of Onset Diabetes Mother Hypertension Mother Heart disease Mother Cancer Father Breast cancer Sister Heart disease Sibling Cancer Sibling Active Ambulatory Problems Diagnosis Date Noted Chronic ITP (idiopathic thrombocytopenia) (CMS/HCC) 05/26/2016 Disease of thyroid gland (CMS/HCC) 06/28/2022 Essential hypertension ([facility]/HCC) 05/13/2021 Family history of breast cancer 04/13/2017 Lupus 03/03/2016 Nocturnal leg cramps 10/05/2017 Obstructive sleep apnea syndrome 05/13/2021 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[facility]/HCC) 06/28/2022 Tobacco dependence 06/28/2022 Dry mouth 01/05/2017 Compression syndrome, nerve 06/28/2022 Abnormal weight loss 03/03/2016 Age-related osteoporosis without current pathological fracture ([facility]/HCC) 06/06/2023 Ruptured ear drum, left 06/06/2023 Leg pain, bilateral 06/06/2023 Left wrist pain 06/06/2023 Obesity (BMI 30-39.9) 06/06/2023 Claudication of both lower extremities ([facility]) 06/08/2023 PAD (peripheral artery disease) ([facility]) 06/08/2023 Hyperkalemia with normal acid-base balance 11/27/2023 Cholesteatoma of left ear 11/14/2023 HL (hearing loss) 06/28/2022 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) 03/03/2016 Perforation of left tympanic membrane 06/29/2022 Other forms of systemic lupus erythematosus (CMS/HCC) 11/28/2023 Other fatigue 11/28/2023 Weakness of both legs 11/28/2023 Systemic lupus erythematosus, unspecified ([facility]/HCC) 02/12/2024 Lumbar back pain 02/12/2024 Thyroid nodule ([facility]) 02/26/2024 Coronary artery disease involving mohegan coronary artery of mohegan heart ([facility]) 02/26/2024 Calcification of aortic valve 02/26/2024 PAH (pulmonary artery hypertension) (CMS/[facility]) 03/27/2024 Megaloblastic anemia due to [...] disease) States medication was given too fast. Mfstfml-Sstmjl-Txibk Pertussis Rash Current Outpatient Medications on File [...] surgery eventually be needed documented in this encounterOzarks Community [id number] History of Present illness Narrative* Stephanieshannan Dumont NP - 05/14/2024 11:57 AM ESTAssociated Problem(s): Essential hypertension (CMS/HCC) No dose changes in meds * FREDDY HAMILTON - 05/14/2024 10:30 AM EST Pt seen dr curran yesterday- she is going to be seen in [place] for her left knee elimination? * Stephanie [...] HCPOA/Living Will: No Concerns: seeing ortho in [place] SUBJECTIVE: MEDICATIONS: Current Outpatient Medications Medication Instructions [...] disease) States medication was given too fast. Pcuylhj-Ovlkql-Tyael Pertussis Rash REVIEW OF SYMPTOMS: Review of [...] of the risks of continued smoking: stroke, SC, all forms of cancer, lung disease, and [...] cessation. Age-related osteoporosis without current pathological fracture ([facility]) Relevant Orders DEXA bone density Obesity (BMI 30-39.9) Coronary artery disease involving mohegan coronary artery of mohegan heart ([facility]/HCC) Stress test was negative Pre-diabetes Check blood [...] AM ESTAssociated Problem(s): Coronary artery disease involving mohegan coronary artery of mohegan heart ([facility]) Stress test was negative * Stephanie Dumont [...] of the risks of continued smoking: stroke, SC, all forms of cancer, lung disease, and [...] on a yearly basis documented in this encounterOzarks Community HospitalJbqbcgclfm10-05-6815 History of Present illness Narrative* Herson Ike Avalos, - 05/13/2024 10:45 AM EST HISTORY [...] disease) States medication was given too fast. Nmrmfsg-Lnykak-Hasrk Pertussis Rash HOME MEDICATIONS: Current Outpatient Medications [...] basis. Herson Avalos D.O. documented in this [facility]10-17-2024 Telephone encounter Note* Telephone Encounter - Stephanie Dumont NP - 04/25/2024 8:16 AM EDT Let the patient know that I did go ahead and do a referral to Dr Mayo for her thyroid biopsy so that we can see what his opinion is on what to do next [place] [facility] [id number] Miscellaneous Notes* Telephone Encounter - Stephanie Dumont NP - 04/25/2024 8:16 AM EDT Let the patient know that I did go ahead and do a referral to Dr Mayo for her thyroid biopsy so that we can see what his opinion is on what to do next [place] documented in this [facility]10-16-2024 History of Present illness Narrative* Stephanie [...] AM EDTAssociated Problem(s): Coronary artery disease involving mohegan coronary artery of mohegan heart (CMS/HCC) No acute chest pain See [...] disease) States medication was given too fast. Xiaxuov-Psjrgn-Fsaaa Pertussis Rash REVIEW OF SYMPTOMS: Review of [...] thyroid follicular cells Coronary artery disease involving mohegan coronary artery of mohegan heart (CMS/HCC) No acute chest pain See [...] Fu as per Hem/onc documented in this encounterOzarks Community [id number] Nurse Note* Joanne Alvarez MA - 04/18/2024 11:57 AM EDT Patient Identification confirmed: yes. Injection given and documented on MAR per provider order. Joanne Alvarez MA [facility]10-10-2024 Nurse Note* Joanne Alvarez MA - 04/18/2024 11:57 AM EDT Patient Identification confirmed: yes. Injection given and documented on MAR per provider order. Joanne Alvarez MA documented in this encounterRegency Hospital [facility]10-10-2024 Instructions* Patient Instructions* Emani Brizuela - 04/18/2024 11:40 AM EDT B12 shot today and q 6 weeks Continue Tavalisse 100 mg BID RTC in 6 weeks Labs same day documented in this encounterRegency Hospital [facility]10-10-2024 History of Present illness Narrative* Rinku Ramsey MD - 04/18/2024 11:15 AM EDT NAME: Andrei Fish [facility] NO.: [id number] DATE OF SERVICE: April 18, 2024 (Joon) Some elements in this clinic [...] is going to follow up with her [employer] regarding pulmonary nodule that has been stable [...] having a mammogram and dexa scan at [facility] per her PCP. She states [...] 08/29/2022 and then a follow-up with her plumbing hardware assembler on 09/07/2022. Overall, she is doing well [...] as they are slightlyincreased. Got back from [place] and saw her sisters and had a [...] why she was going to see a plumbing hardware assembler for her blood pressure. Patient also has [...] which included preparing to see the patient, myhq-ri-qaxr patient care, completing clinical documentation, obtaining and/or reviewing separately obtained history, performing a medically appropriate examination, counseling and educating the patient/family/caregiver, ordering medications, tests, or procedures, communicating with other HCPs (not separately reported), independently interpreting results (not separately reported), communicating results to the patient/family/caregiver, and care coordination (not separately reported). Rinku Ramsey MD, CPE Hematology and Oncology Services Provided at: [place], [place] Scribe Attestation: This note was scribed [...] CC: Dr. Atif Graf documented in this encounterRegency Hospital [facility]10-10-2024 NoteHighland District Hospital10-02-2024 Telephone encounter Note* Telephone Encounter - FREDDY HAMILTON - 04/10/2024 6:13 PM EDT pt called about her metoprolol being on hold at her pharmacy, she just took her last (1/2 pill) today. pt was asking if she is suppose to hold off on this medication? [facility] [id number] Miscellaneous Notes* Telephone Encounter - FREDDY HAMILTON - 04/10/2024 6:13 PM EDT pt called about her metoprolol being on hold at her pharmacy, she just took her last (1/2 pill) today. pt was asking if she is suppose to hold off on this medication? documented in this encounterOzarks Community HospitalJcioiqmmlm26-00-0467 Telephone encounter Note* Telephone Encounter - Rinku Ramsey MD - 04/09/2024 3:22 PM EDT No further instructions - you are right on. [facility]10-01-2024 Miscellaneous Notes* Telephone Encounter - Rinku Ramsey MD - 04/09/2024 3:22 PM EDT No further instructions - you are right on. * Telephone Encounter - Desirae Pimentel RN - 04/09/2024 9:10 AM EDT Pt [employer] Stephanie called to inquire if there are any special instructions/ recommendations for schedule thyroid fine needle bx at [facility]. 03/05/24 platelet result 144. Encouraged to [...] recommendations? Desirae Pimentel RN documented in this encounterRegency Hospital [facility] West10-01-2024 History of Present illness Narrative* LISA Sanchez [...] disease) States medication was given too fast. Nejtxeh-Uuigez-Uhiub Pertussis Rash HOME MEDICATIONS: Current Outpatient Medications [...] Normal TIMA on 03/01/24 for vascular flow [place] Pt notes occ posterior knee pain. Not [...] for requiring urgent evaluation. documented in this encounterOzarks Community HospitalOsgfpxiznx35-94-2856 Telephone encounter Note* Telephone Encounter - Desirae Pimentel RN - 04/09/2024 9:10 AM EDT Pt [employer] Stephanie called to inquire if there are any special instructions/ recommendations for schedule thyroid fine needle bx at [facility]. 03/05/24 platelet result 144. Encouraged to ask radiology dept if they have any requirements for platelet number. Also recommend recheck CBC prior to verify no drastic changes, and standard bleeding precautions following, should platelets remain at a stable number. She will call with any further needs or concerns once she discusses with radiology team. Loulou: Any further recommendations? Desirae Pimentel RN [facility]09-27-2024 Telephone encounter Note* Telephone Encounter - Desirae Pimentel RN - 04/05/2024 3:49 PM EDT Printed and signed by Loulou. Faxed to [phone], as requested. Desirae Pimentel RN [facility]09-27-2024 Miscellaneous Notes* Telephone Encounter - Desirae Pimentel RN - 04/05/2024 3:49 PM EDT Printed and signed by Loulou. Faxed to [phone], as requested. Desirae Pimentel, RN * Telephone Encounter - Krista Harden RPh - 04/02/2024 2:42 PM EDT Please send this to Dr Ramsey 04/03/24. This is set to print. Emiliano Harden, PharmD, BCOP documented in this encounterRegency Hospital [facility] West09-26-2024 History of Present illness Narrative* Stephanie Dumont [...] AM EDTAssociated Problem(s): Coronary artery disease involving mohegan coronary artery of mohegan heart (CMS/HCC) Reviewed ECHO Will order stress test * Stephanie Dumont NP - 04/04/2024 10:32 AM EDTAssociated Problem(s): Essential hypertension (CMS/HCC) Stable, no med dose chagnes * FREDDY HAMILTON - 04/04/2024 9:40 AM EDT [facility] [phone] Cardiology- Dr west Pt had a pos [...] disease) States medication was given too fast. Ptejcfj-Tehcsk-Euxrh Pertussis Rash REVIEW OF SYMPTOMS: Review of [...] Obesity (BMI 30-39.9) Coronary artery disease involving mohegan coronary artery of mohegan heart (CMS/HCC) Reviewed ECHO Will order stress [...] referral to Orthopaedic Surgery documented in this encounterOzarks Community HospitalCtxejvqquf63-78-7864 Telephone encounter Note* Telephone Encounter - Krista Harden RPh - 04/02/2024 2:42 PM EDT Please send this to Dr Ramsey 04/03/24. This is set to print. Emiliano Harden, PharmD, BCOP [facility] Work Phone: [phone] History of Present illness Narrative* Stephanie Dumont NP - 03/27/2024 1:10 PM EDTAssociated Problem(s): Obstructive sleep apnea syndrome Tested in the past, never treated * Stephanie Dumont NP - 03/27/2024 1:08 PM EDTAssociated Problem(s): PAH (pulmonary artery hypertension) ([facility]) Per ECHO Elevated pressures, has hx of ADALBERTO, not treated documented in this encounterOzarks Community HospitalOimpotwbdj07-20-4620 Nurse Note* Joanne Alvarez MA - 03/05/2024 11:40 AM EDT Patient Identification confirmed: yes. Injection given and documented on MAR per provider order. Joanne Alvarez MA [facility]08-27-2024 Nurse Note* Joanne Alvarez MA - 03/05/2024 11:40 AM EDT Patient Identification confirmed: yes. Injection given and documented on MAR per provider order. Joanne Alvarez MA documented in this encounterRegency Hospital [facility] West08-27-2024 Instructions* Patient Instructions* Emani Brizuela - 03/05/2024 11:20 AM EDT B12 shot today and q 6 weeks Continue Tavalisse 100 mg BID RTC in 6 weeks Labs same day documented in this encounterRegency Hospital [facility] West08-27-2024 History of Present illness Narrative* Rinku Ramsey MD - 03/05/2024 10:30 AM EDT Images from the original note were not included. NAME: Andrei Fish [facility] NO.: [id number] DATE OF SERVICE: March 05, 2024 (Joon) [...] is going to follow up with her [employer]NAGERS regarding pulmonary nodule that has been stable [...] having a mammogram and dexa scan at [facility] per her PCP. She states [...] 08/29/2022 and then a follow-up with her plumbing hardware assembler on 09/07/2022. Overall, she is doing well [...] as they are slightlyincreased. Got back from [place] and saw her sisters and had a [...] why she was going to see a plumbing hardware assembler for her blood pressure. Patient also has [...] which included preparing to see the patient, wlug-ig-cncm patient care, completing clinical documentation, obtaining and/or reviewing separately obtained history, performing a medically appropriate examination, counseling and educating the patient/family/caregiver, ordering medications, tests, or procedures, communicating with other HCPs (not separately reported), independently interpreting results (not separately reported), communicating results to the patient/family/caregiver, and care coordination (not separately reported). Rinku Ramsey MD, CPE Hematology and Oncology Services Provided at: [place], [place] Scribe Attestation: This note was scribed [...] CC: Dr. Atif Graf documented in this encounterRegency [facility]-26-2024 History of Present illness Narrative* Stephanie Dumont NP - 03/04/2024 12:46 PM EDTAssociated Problem(s): Thyroid nodule (CMS/HCC) Thyroid US * Stephanie Dumont NP - 03/04/2024 12:46 PM EDTAssociated Problem(s): Essential hypertension (CMS/HCC) stable * Stephanie Dumont NP - 03/04/2024 12:46 PM EDTAssociated Problem(s): Coronary artery disease involving mohegan coronary artery of mohegan heart (CMS/HCC) Strong family hx of CAD Vague c.o pressure chest from time to time Will order ECHO Add Toprol XL 12.5mg daily Await her to let me know which package sorter referral * Stephanie Dumont NP - 03/04/2024 [...] who does cardiology through [facility] closer to [place] will call me tomorrow Thyroid nodule: incidental [...] disease) States medication was given too fast. 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) - Primary Strong family hx of CAD Vague c.o pressure chest from time to time Will order ECHO Add Toprol XL 12.5mg daily Await her to let me know which package sorter referral Relevant Medications metoprolol succinate XL (Toprol-XL) 25 MG 24 hr tablet Calcification of aortic valve Per CT chest, will get ECHO documented in this encounterOzarks Community [id number] Instructions* Patient Instructions* Emani Carr - 02/02/2024 1:48 PM EDT Continue Tavalisse 100 mg BID RTC in 6 weeks for labs and follow up documented in this encounterRegency Hospital [facility]07-26-2024 History of Present illness Narrative* Rinku Ramsey MD - 02/02/2024 1:30 PM EDT Images from the original note were not included. NAME: Andrei Fish CLINIC NO.: [id number] DATE OF SERVICE: February 02, 2024 (Joon) [...] having a mammogram and dexa scan at [facility] per her PCP. She states [...] 08/29/2022 and then a follow-up with her plumbing hardware assembler on 09/07/2022. Overall, she is doing well [...] as they are slightlyincreased. Got back from [place] and saw her sisters and had a [...] why she was going to see a plumbing hardware assembler for her blood pressure. Patient also has [...] which included preparing to see the patient, eonm-tt-rdcr patient care, completing clinical documentation, obtaining and/or reviewing separately obtained history, performing a medically appropriate examination, counseling and educating the patient/family/caregiver, ordering medications, tests, or procedures, communicating with other HCPs (not separately reported), independently interpreting results (not separately reported), communicating results to the patient/family/caregiver, and care coordination (not separately reported). Rinku Ramsey MD, CPE Hematology and Oncology Services Provided at: [facility], [place], [place] Scribe Attestation: This note was scribed [...] CC: Dr. Atif Graf documented in this encounterRegency Hospital [facility]07-18-2024 Telephone encounter Note * Telephone Encounter - Desirae Pimentel RN - 01/25/2024 10:29 AM EDT Loulou: please sign pended refill, if agreeable Desirae Pimentel RN [facility]07-18-2024 Miscellaneous Notes* Telephone Encounter - Desirae Pimentel RN - 01/25/2024 10:29 AM EDT Loulou: please sign pended refill, if agreeable Desirae Pimentel RN documented in this encounterRegency Hospital [facility]06-25-2024 History of Present illness Narrative* Emani Gutiérrez MD - 01/02/2024 1:15 PM EDT History Of Present Illness: Andrei Fish is a 73 y.o. 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 Augie Tyler at [facility]. She was told in 2016 that [...] times daily ergocalciferol (Vitamin D-2) 1.25 MG (17285 UT) capsule 1 capsule, oral, Weekly fostamatinib [...] December [address] Augie Tyler at [facility]. She was told in 2016 that [...] Spring 2024 or later). [facility] Work Phone: 1(668) 306-300506-10-2024 Miscellaneous Notes* Perioperative Nursing Note - Bernardino Mayen RN - 12/18/2023 12:47 PM EDT 1247: Phase 1 care begins 1313: Pt family updated via message 1406: 970 tylenol given per emr order 1420: Phase 2 care begins documented in [facility] encounterL[facility] Work Phone: 1(381) 372-140406-10-2024 Note* Perioperative Nursing Note - Bernardino Mayen RN - 12/18/2023 12:47 PM EDT 1247: Phase 1 care begins 1313: Pt family updated via message 1405: 975 tylenol given per emr order 1420: Phase 2 care begins [facility]06[facility] Hospital Discharge instructions* Discharge Instructions* lFy Lindo MD - 12/18/2023 12:42 PM EDT [...] suggestions for your care. documented in this [facility] Work Phone: 1(253) 802-308506-10-2024 History and physical note* Fly Lindo MD [...] cartilage graft, possible OCR Fly Lindo MD [facility] Work Phone: 1(855) 166-834306-10-2024 History and physical note* Fly Lindo MD [...] OCR Fly Lindo MD documented in [facility] encounterL[facility] Work Phone: 1(974) 222-634106-07-2024 Nurse Note* Joanne Alvarez MA - 12/15/2023 11:40 AM EDT Patient identified by 2 identifiers. EKG performed as ordered. Joanne Alvarez MA [facility]06-07-2024 Nurse Note* Joanne Alvarez MA - 12/15/2023 11:40 AM EDT Patient identified by 2 identifiers. EKG performed as ordered. Joanne Alvarez MA documented in this encounterRegency Hospital [facility]05-21-2024 Telephone encounter Note * Telephone Encounter - Rinku Ramsey MD - 11/28/2023 2:35 PM EDT Called thanks [facility]05-21-2024 Miscellaneous Notes* Telephone Encounter - Rinku Ramsey MD - 11/28/2023 2:35 PM EDT Called thanks * Telephone Encounter - Emilia Robins RN - 11/28/2023 11:[address] Graf ( ENT) is requesting to speak w/ you regarding Odes. Please call her @ [phone]. Thanks, Emilia Robins RN documented in this encounterRegency Hospital [facility]05-21-2024 Telephone encounter Note * Telephone Encounter - Emilia Robins RN - 11/28/2023 11:[address] Graf ( ENT) is requesting to speak w/ you regarding Andrei. Please call her @ [phone]. Thanks, Emilia Robins, RN [facility] Work Phone: 1(252) 176-5086677740-79-1985 Instructions* Patient Instructions* Rinku Ramsey MD - 11/24/2023 11:28 AM EDT Continue Tavalisse 100 mg BID Return in 6 weeks for labs and follow up documented in this encounterRegency Hospital [facility]05-17-2024 History of Present illness Narrative* Rinku Ramsey MD - 11/24/2023 10:45 AM EDT Images from the original note were not included. NAME: Abe Andrei CLINIC NO.: [id number] DATE OF SERVICE: November 24, 2023 (Joon) [...] having a mammogram and dexa scan at [facility] per her PCP. She states [...] 08/29/2022 and then a follow-up with her plumbing hardware assembler on 09/07/2022. Overall, she is doing well [...] as they are slightlyincreased. Got back from [place] and saw her sisters and had a [...] why she was going to see a plumbing hardware assembler for her blood pressure. Patient also has [...] which included preparing to see the patient, hnwz-vd-twlu patient care, completing clinical documentation, obtaining and/or reviewing separately obtained history, performing a medically appropriate examination, counseling and educating the patient/family/caregiver, ordering medications, tests, or procedures, communicating with other HCPs (not separately reported), independently interpreting results (not separately reported), communicating results to the patient/family/caregiver, and care coordination (not separately reported). Rinku Ramsey MD, CPE Hematology and Oncology Services Provided at: [place], [place] CC: Dr. Chadd Graf documented in this encounterRegency Hospital [facility]05-07-2024 History of Present illness Narrative* Susanna Graf MD - 11/14/2023 1:45 PM EDT History Of Present Illness: Andrei Fish is a 72 y.o. female whom presents to me as a new patient for left- sided TM perforation,referred here today by Dr. Mar Mayo. She is status post left-sided tympanoplasty with OCR in December of [address] Augie Tyler at [facility]. In 2017, was told by Dr. [...] of [address] Augie Tyler at [facility]. Patient's dizziness also is likely d/t tympanic perforation. Patient will require L sided tympanomastoidectomy canal wall up with ossiculoplasty, cartilage graft. Discussed risks and benefits with patient. Tamela Grasia, MS4 I have reviewed the documentation as scribed by Tamela Garsia and agree with the notes. Susanna Graf MD documented in this [facility] Work Phone: 1(371) 165-991105-07-2024 Instructions* Patient Instructions* Nereida Stewart - 11/14/2023 1:45 PM EDT Welcome to Dr. Graf's clinic. We are here to assist you through your ENT care at [facility]. Dr. Graf is an Ear surgeon. This means that she specializes in taking care of patients with complex ear problems. Dr. Graf's office number is [phone]. While you may see her at a satellite office, she has a team committed to help meet your healthcare needs at [facility]'s [facility]. This number is the most direct way to communicate with the office. Jasmyne is Dr. Graf's placement secretary and she answers the office phone [...] may include dieticians, social workers, speech therapists, rotary engine assembler, neurologist, and physical therapist. Dr. Graf will provide these referrals as needed. Please let her know if you would like to request a specific referral. For your convenience, Dr. Graf sees patients at several [facility] locations including [facility] and [facility] at the main [place] of [facility]. While we try tomake your appointments as [...] will have to reschedule. documented in this [facility] Work Phone: 1(140) 287-369404-05-2024 History of Present illness Narrative* Ana Hernandez PA-C - 10/13/2023 1:30 PM EDT Images from the original note were not included. NAME: Andrei Fish [facility] NO.: [id number] DATE OF SERVICE: October 13 2023 (Mary) [...] having a mammogram and dexa scan at [facility] per her PCP. She states [...] 08/29/2022 and then a follow-up with her plumbing hardware assembler on 09/07/2022. Overall, she is doing well [...] as they are slightlyincreased. Got back from [place] and saw her sisters and had a [...] therapy. Updated Visit, September 16, 2021: Andrei iFsh returns for follow-up. [...] why she was going to see a plumbing hardware assembler for her blood pressure. Patient also has [...] PA-C Hematology and Oncology Services Provided at: [place], [place] CC: Dr. Chadd Deluna documented in this encounterRegency Hospital [facility]02-26-2024 Miscellaneous Notes* Telephone Encounter - Jayden Connelly APRN.CNP - 09/04/2023 12:27 PM EST The following approved medication requests have been transmitted electronically. Requested Prescriptions Signed Prescriptions Disp Refills losartan (COZAAR) 25 mg tablet 180 tablet 3 Sig: take 2 tablets by mouth every day at bedtime Authorizing Provider: JAYDEN CONNELLY APRN.CNP documented in this encounterRegency Hospital [facility]02-19-2024 Instructions* Patient Instructions* Rinku Ramsey MD - 08/28/2023 2:54 PM EST Continue Tavalisse 100 mg twice daily. Follow up in 6 weeks with labs. documented in this encounterRegency Hospital [facility] West02-19-2024 History of Present illness Narrative* Rinku Ramsey MD - 08/28/2023 2:45 PM EST Images from the original note were not included. NAME: AbeAndrei [facility] NO.: [id number] DATE OF SERVICE: [facility] 28[facility] [address] [facility] Some elements in this clinic note that [...] having a mammogram and dexa scan at [facility] per her PCP. She states [...] 08/29/2022 and then a follow-up with her plumbing hardware assembler on 09/07/2022. Overall, she is doing well [...] as they are slightlyincreased. Got back from [place] and saw her sisters and had a [...] why she was going to see a plumbing hardware assembler for her blood pressure. Patient also has [...] which included preparing to see the patient, psbi-bh-qocs patient care, completing clinical documentation, performing a medically appropriate examination, counseling and educating the patient/family/caregiver, ordering medications, tests, or p rocedures, independently interpreting results (not separately reported), communicating results to the patient/family/caregiver, and care coordination (not separately reported). Rinku Ramsey MD, CPE Hematology and Oncology Services Provided at: [place], [place] Scribe Attestation: This note was scribed [...] CC: Dr. Chadd Deluna documented in this encounterRegency Hospital [facility] West02-14-2024 History of Present illness Narrative* Mar Mayo MD - 08/23/2023 10:00 AM EST Subjective Patient ID: Andrei Fish is a 72 y.o. female who presents for Ear Problem (Left TM perf). Pt had an apparent left tympanoplasty and OCR in December 2015. Pt states she was told there would need to be revision surgery. Saw another ENT in [place] who was to do the revision, but [...] Diagnosis Date Noted Chronic ITP (idiopathic thrombocytopenia) ([facility]) 05/26/2016 Disease of thyroid gland ([facility]) 06/28/2022 Essential hypertension ([facility]) 05/13/2021 Family history of breast cancer 04/13/2017 Lupus ([facility]) 03/03/2016 Nocturnal leg cramps 10/05/2017 Obstructive sleep apnea syndrome 05/13/2021 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[facility]) 06/28/2022 Tobacco dependence 06/28/2022 Dry mouth 01/05/2017 Compression syndrome, nerve 06/28/2022 Abnormal weight loss 03/03/2016 Age-related osteoporosis without current pathological fracture ([facility]) 06/06/2023 Ruptured ear drum, left 06/06/2023 Leg pain, bilateral 06/06/2023 Left wrist pain 06/06/2023 Obesity (BMI 30-39.9) 06/06/2023 Claudication of both lower extremities ([facility]) 06/08/2023 PAD (peripheral artery disease) ([facility]) 06/08/2023 Resolved Ambulatory Problems Diagnosis Date Noted No Resolved Ambulatory Problems Past Medical History: Diagnosis Date Hypertension ([facility]) Past Surgical History: Procedure Laterality Date APPENDECTOMY BI MAMMO GUIDED LOCALIZATION BREAST LEFT Left 03/28/2017 BI MAMMO GUIDED LOCALIZATION BREAST LEFT 03/28/2017 BREAST BIOPSY Left BREAST LUMPECTOMY Left 07/2015 BREAST SURGERY CHOLECYSTECTOMY COLONOSCOPY 2008 EYE SURGERY FRACTURE SURGERY Left leg HYSTERECTOMY Allergies Allergen Reactions Vancomycin Other States had burning sensation t/o entire body. (Infectious disease) States medication was given too fast. Acrzwsg-Vencrx-Vsuam Pertussis Rash Current Outpatient Medications on File [...] evaluated for revision surgery documented in this [facility]02-07-2024 History of Present illness Narrative* ULYSSES Fisher - 08/16/2023 8:00 AM EST History: Pt was referred to ENT because of left TM perforation and left hearing loss. Onset of perforation was a few years ago Pt saw ENT in [place] that was going to repair the perforation [...] Left Ear: No seal documented in this [facility]12-20-20[facility] Evaluation note* Encounter Date Diagnosis Assessment Notes [...] Her CT scan results reviewed from the [place] [facility] which also showed bilateral renal cysts. [...] oral vitamin D 50,000 unit once weekly. [facility] Other 11-27-2023 History of Present illness Narrative* Ana Hernandez PA-C - 06/05/2023 8:47 AM EST Images from the original note were not included. NAME: Andrei Fish [facility] NO.: [id number] DATE OF SERVICE: June 05, 2023 (Mary) (Elements copied from Dr. Ramsey's note dated April 20, 2023, have been reviewed and updated where appropriate, and all reflect current assessment and medical decision making during today's encounter, June 05, 2023) Additional Clinicians involved in Paulalicia Ruben Fish's [...] having a mammogram and dexa scan at [facility] per her PCP. She states [...] 08/29/2022 and then a follow-up with her plumbing hardware assembler on 09/07/2022. Overall, she is doing well [...] as they are slightlyincreased. Got back from [place] and saw her sisters and had a [...] why she was going to see a plumbing hardware assembler for her blood pressure. Patient also has [...] which included preparing to see the patient, aylm-kf-vwnq patient care, completing clinical documentation, obtaining and/or reviewing separately obtained history, performing a medically appropriate examination, counseling and educating the pat ient/family/caregiver, ordering medications, tests, or procedures, independently interpreting results (not separately reported), communicating results to the patient/family/caregiver, and care coordination (not separately reported). Ana Hernandez PA-C CC: Dr. Chadd Deluna documented in this encounterRegency Hospital [facility] West10-23-2023 Miscellaneous Notes* Telephone Encounter - Krista Harden RPh - 05/01/2023 2:44 PM EDT Please Fax RX to [facility] @ [phone] Emilianobora Harden, PharmD, BCOP documented in this encounterRegency Hospital [facility] West10-12-2023 Instructions* Patient Instructions* Rinku Ramsey MD - 04/20/2023 10:47 AM EDT Continue Tavalisse 100 mg twice daily. Follow up in 6 weeks with labs. documented in this encounterRegency Hospital [facility] West10-12-2023 History of Present illness Narrative* Rinku Ramsey MD - 04/20/2023 10:30 AM EDT Images from the original note were not included. NAME: Andrei Fish CLINIC NO.: [id number] DATE OF SERVICE: April 20, 2023 ([facility]) Some elements in this clinic [...] 08/29/2022 and then a follow-up with her plumbing hardware assembler on 09/07/2022. Overall, she is doing well [...] as they are slightlyincreased. Got back from [place] and saw her sisters and had a [...] why she was going to see a plumbing hardware assembler for her blood pressure. Patient also has [...] which included preparing to see the patient, xlxx-pw-wjgp patient care, completing clinical documentation, obtaining and/or reviewing separately obtained history, performing a medically appropriate examination, counseling and educating the pat ient/family/caregiver, ordering medications, tests, or procedures, independently interpreting results (not separately reported), communicating results to the patient/family/caregiver, and care coordination (not separately reported). Rinku Ramsey MD, CPE Hematology and Oncology Services Provided at: [place], [place] CC: Dr. Chadd Deluna documented in this encounterRegency Hospital [facility] West10-11-2023 Miscellaneous Notes* Telephone Encounter - Joanne Alvarez - 04/19/2023 4:02 PM EDT Patient has an appt on 04/20. Would you like labs? documented in this encounterRegency Hospital [facility]09-05-2023 Evaluation note* Encounter Date Diagnosis Assessment Notes Treatment Notes Treatment Clinical Notes Mar, Complex renal cyst (ICD-10 - N28.1) [facility] Other [id number] Instructions* Patient Instructions* Rinku Ramsey MD - 03/09/2023 2:54 PM EDT Continue Tavalisse 100 mg twice daily. Follow up in 6 weeks with labs. documented in this encounterRegency Hospital [facility] West08-31-2023 History of Present illness Narrative* Rinku Ramsey MD - 03/09/2023 2:50 PM EDT Images from the original note were not included. NAME: Andrei Fish CLINIC NO.: [id number] DATE OF SERVICE: March 09, 2023 (Joon) [...] 08/29/2022 and then a follow-up with her plumbing hardware assembler on 09/07/2022. Overall, she is doing well [...] as they are slightlyincreased. Got back from [place] and saw her sisters and had a [...] why she was going to see a plumbing hardware assembler for her blood pressure. Patient also has [...] which included preparing to see the patient, kles-az-eifr patient care, completing clinical documentation, performing a medically appropriate examination, counseling and educating the patient/family/caregiver, ordering medications, tests, or p rocedures, and independently interpreting results (not separately reported). Rinku Ramsey MD, CPE Hematology and Oncology Services Provided at: [place], [place] CC: Dr. Chadd Deluna documented in this encounterRegency Hospital [facility] West07-20-2023 Instructions* Patient Instructions* Rinku Ramsey MD - 01/26/2023 3:14 PM EDT Continue Tavalisse 100 mg twice daily. Follow up in 6 weeks with labs. documented in this encounterRegency Hospital [facility] West07-20-2023 History of Present illness Narrative* Rinku Ramsey MD - 01/26/2023 3:10 PM EDT NAME: Anderi Fish [facility] NO.: [id number] DATE OF SERVICE: January 26, 2023 (Joon) [...] 08/29/2022 and then a follow-up with her plumbing hardware assembler on 09/07/2022. Overall, she is doing well [...] as they are slightlyincreased. Got back from [place] and saw her sisters and had a [...] had a consultation with nephrology, Dr. Gilson Arriloa. Dr. Arriola increased her losartan to 50 [...] why she was going to see a plumbing hardware assembler for her blood pressure. Patient also has [...] which included preparing to see the patient, xuac-rz-zzgv patient care, completing clinical documentation, performing a medically appropriate examination, counseling and educating the patient/family/caregiver, ordering medications, tests, or p rocedures, and independently interpreting results (not separately reported). Rinku Ramsey MD, CPE Hematology and Oncology Services Provided at: [place], [place] CC: Dr. Chadd Langey documented in this encounterRegency Hospital [facility]06-08-2023 Instructions* Patient Instructions* Rinku Ramsey MD - 12/15/2022 2:39 PM EDT Continue Tavalisse 100 mg twice daily. Follow up in 6 weeks with labs. documented in this encounterRegency Hospital [facility] West06-08-2023 History of Present illness Narrative* Rinku Ramsey MD - 12/15/2022 2:35 PM EDT Images from the original note were not included. NAME: Andrei Fish [facility] NO.: [id number] DATE OF SERVICE: December 15, 2022 ([facility]) Some elements in this clinic note [...] 08/29/2022 and then a follow-up with her plumbing hardware assembler on 09/07/2022. Overall, she is doing well [...] as they are slightlyincreased. Got back from [place] and saw her sisters and had a [...] why she was going to see a plumbing hardware assembler for her blood pressure. Patient also has [...] which included preparing to see the patient, [id number] patient care, completing clinical documentation, performing a medically appropriate examination, counseling and educating the patient/family/caregiver, ordering medications, tests, or p rocedures, and independently interpreting results (not separately reported). Rinku Ramsey MD, CPE Hematology and Oncology Services Provided at: [place], [place] CC: Dr. Chadd Deluna documented in this encounterReg[facility] Instructions* Patient Instructions* Rinku Ramsey MD - 10/27/2022 3:37 PM EDT Continue Tavalisse 100 mg twice daily. (Actually takes 2 pills at the same time) Follow up in 6 weeks with labs. documented in this encounterRegency Hospital [facility]04-20-2023 History of Present illness Narrative* Rinku Ramsey MD - 10/27/2022 3:34 PM EDT Images from the original note were not included. NAME: AbeAndrei CLINIC NO.: [id number] DATE OF SERVICE: October 27, 2022 ([place]) [...] 08/29/2022 and then a follow-up with her plumbing hardware assembler on 09/07/2022. Overall, she is doing well [...] as they are slightlyincreased. Got back from [place] and saw her sisters and had a [...] of therapy. Updated Visit, September 16, 2021: Adnrei Fish returns for follow-up. She remains on [...] why she was going to see a plumbing hardware assembler for her blood pressure. Patient also has [...] which included preparing to see the patient, [id number] patient care, completing clinical documentation, performing a medically appropriate examination, counseling and educating the patient/family/caregiver, ordering medications, tests, or p rocedures, and independently interpreting results (not separately reported). Rinku Ramsey MD, CPE Hematology and Oncology Services Provided at: [place], [place] CC: Dr. Chadd Deluna documented in this encounterRegency [facility]03-17-2023 Miscellaneous Notes* Telephone Encounter - Joanne Alvarez - 09/23/2022 9:24 AM EDT Patient would like script for 90 days please. Joanne Alvarez documented in this encounterRegency Hospital [facility]03-10-2023 Miscellaneous Notes* Telephone Encounter - Rinku Ramsey MD - 09/16/2022 3:30 PM EST This really should go through her PCP documented in this encounterRegency Hospital [facility]03-09-2023 Instructions* Patient Instructions* Rinku Ramsey MD - 09/15/2022 3:53 PM EST Continue Tavalisse 100 mg twice daily. (Actually takes 2 pills at the same time) Losartan was increased by nephrology. Taking Losartan 50 mg daily. Continue HCTZ. Follow up in 6 weeks with labs. documented in this encounterRegency Hospital [facility]03-09-2023 History of Present illness Narrative* Rinku Ramsey MD - 09/15/2022 3:34 PM EST Images from the original note were not included. NAME: Andrei Fish [facility] NO.: [id number] DATE OF SERVICE: September 15, 2022 ([place]) [...] 08/29/2022 and then a follow-up with her plumbing hardware assembler on 09/07/2022. Overall, she is doing well [...] as they are slightlyincreased. Got back from [place] and saw her sisters and had a [...] why she was going to see a plumbing hardware assembler for her blood pressure. Patient also has [...] which included preparing to see the patient, [id number] patient care, completing clinical documentation, performing a medically appropriate examination, counseling and educating the patient/family/caregiver, ordering medications, tests, or p rocedures, and independently interpreting results (not separately reported). Rinku Ramsey MD, CPE Hematology and Oncology Services Provided at: [place], [place] CC: Dr. Chadd Deluna documented in this encounterRegency Hospital [facility]03-01-2023 Evaluation note* Encounter Date Diagnosis Assessment Notes [...] (ICD-10 - D64.9) She follows with Hematology [facility] Other 01-27-2023 Miscellaneous Notes* Telephone Encounter - [...] appropriate Jayden Connelly APRN.STEPH documented in this encounterRegency Hospital [facility]01-26-2023 Miscellaneous Notes* Telephone Encounter - Karen Muñoz - 08/04/2022 2:40 PM EST Patient wanted to hold off on being referred to Dermatology at this time. She is going to check with her insurance company for in network providers and let our office know on where she would like to be referred to. Karen Muñoz documented in this encounterRegency Hospital [facility]01-26-2023 History of Present illness Narrative* Jayden Connelly APRN.CNP - 08/04/2022 2:04 PM EST Images from the original note were not included. NAME: FishAndrei CLINIC NO.: [id number] DATE OF SERVICE: August 04, 2021 ([place]) Some elements in this clinic note that are critical to medical decision making have been carefully reviewed and included from a prior clinic note dated: June 23, 2022. (Dr. Ramsey) Additional Clinicians involved in [place] [...] 08/29/2022 and then a follow-up with her plumbing hardware assembler on 09/07/2022. Overall, she is doing well [...] as they are slightlyincreased. Got back from [place] and saw her sisters and had a [...] why she was going to see a plumbing hardware assembler for her blood pressure. Patient also has [...] APRN.CNP Hematology and Oncology Services Provided at: [place], [place] CC: Dr. Chadd Deluna I spent a total of 30 minutes on the date of the service which included preparing to see the patient, [id number] patient care, completing clinical documentation, obtaining and/or reviewing separately obtained history, performing a medically appropriate examination, counseling and educating the pat ient/family/caregiver, ordering medications, tests, or procedures, independently interpreting results (not separately reported), and communicating results to the patient/family/caregiver. documented in this encounterRegency Hospital [facility]01-16-2023 Miscellaneous Notes* Telephone Encounter - Jayden Connelly APRN.CNP - 07/25/2022 10:33 AM EST The following approved medication requests have been transmitted electronically. Requested Prescriptions Signed Prescriptions Disp Refills benzonatate (TESSALON PERLE) 100 mg capsule 100 capsule 0 Sig: TAKE 1 CAPSULE BY MOUTH EVERY 6 HOURS NEEDED FOR COUGH. Authorizing Provider: JAYDEN CONNELLY APRN.CNP documented in this encounterRegency Hospital [facility]01-04-2023 Miscellaneous Notes* Telephone Encounter - Jayden Connelly APRN.STEPH - 07/13/2022 4:01 PM EST The following approved medication requests have been transmitted electronically. Requested Prescriptions Signed Prescriptions Disp Refills losartan (COZAAR) 25 mg tablet 60 tablet 1 Sig: TAKE 2 TABLETS BY MOUTH EVERY DAY Authorizing Provider: JAYDEN CONNELLY APRN.EMERGENCY DEPARTMENT documented in this encounterRegency Hospital [facility]12-15-2022 Instructions* Patient Instructions* Rinku Ramsey MD - 06/23/2022 2:44 PM EST Continue Tavalisse 100 mg twice daily. Losartan was increased by nephrology. Taking Losartan 50 mg daily. Continue HCTZ. Right read lesion - trial of ice. Follow up in 6 weeks with labs. See Jayden quinn. - consider biopsy of right read. documented in this encounterRegency Hospital [facility]12-15-2022 History of Present illness Narrative* Rinku Ramsey MD - 06/23/2022 2:30 PM EST Images from the original note were not included. NAME: Andrei Fish CLINIC NO.: [id number] DATE OF SERVICE: June 23, 2022 ([place]) [...] as they are slightlyincreased. Got back from [place] and saw her sisters and had a [...] why she was going to see a plumbing hardware assembler for her blood pressure. Patient also has [...] which included preparing to see the patient, [id number]-[id number] patient care, completing clinical documentation, performing a medically appropriate examination, counseling and educating the patient/family/caregiver, ordering medications, tests, or p rocedures, and independently interpreting results (not separately reported). Rinku Ramsey MD, CPE Hematology and Oncology Services Provided at: [place], [place] CC: Dr. Chadd Deluna documented in this encounterRegency Hospital [facility]11-11-2022 Miscellaneous Notes* Telephone Encounter - Jayden Connelly APRN.CNP - 05/20/2022 3:34 PM EST The following approved medication requests have been transmitted electronically. Requested Prescriptions Signed Prescriptions Disp Refills losartan (COZAAR) 25 mg tablet 60 tablet 1 Sig: TAKE 2 TABLETS BY MOUTH EVERY DAY Authorizing Provider: JAYDEN CONNELLY APRN.CNP documented in this encounterRegency Hospital [facility]11-03-2022 History of Present illness Narrative* Jayden Connelly APRN.CNP - 05/12/2022 2:15 PM EDT NAME: Andrei Fish CLINIC NO.: [id number] DATE OF SERVICE: May 12, 2022 ([place]) [...] as they are slightlyincreased. Got back from [place] and saw her sisters and had a [...] why she was going to see a plumbing hardware assembler for her blood pressure. Patient also has [...] APRN.STEPH Hematology and Oncology Services Provided at: [place], [place] CC: Dr. Chadd Deluna I spent a total of 30 minutes on the date of the service which included preparing to see the patient, [id number] patient care, completing clinical documentation, obtaining and/or reviewing separately obtained history, performing a medically appropriate examination, counseling and educating the pat ient/family/caregiver, ordering medications, tests, or procedures, independently interpreting results (not separately reported), and communicating results to the patient/family/caregiver. documented in this encounterRegency Hospital [facility]09-22-2022 Instructions* Patient Instructions* Rinku Ramsey MD - 03/31/2022 2:50 PM EDT 1. Continue Tavalisse. 2. Losartan was increased by nephrology. Taking Losartan 50 mg daily. 3. Contnue HCTZ. 4. Follow up in 6 weeks with labs. documented in this encounterRegency Hospital [facility]09-22-2022 History of Present illness Narrative* Rinku Ramsey MD - 03/31/2022 2:43 PM EDT Images from the original note were not included. NAME: Abe Adnrei CLINIC NO.: [id number] DATE OF SERVICE: March 31, 2022 Some [...] as they are slightlyincreased. Got back from [place] and saw her sisters and had a [...] She had a consultation with nephrology, Dr. iGlson Arriola. Dr. Arriola increased her losartan to [...] why she was going to see a plumbing hardware assembler for her blood pressure. Patient also has [...] which included preparing to see the patient, [id number] patient care, completing clinical documentation, performing a medically appropriate examination, ordering medications, tests, or procedures, and independently interpreting results (not separately reported). Rinku Ramsey MD, CPE Hematology and Oncology Services Provided at: [place], [place] CC: Chadd Deluna documented in this encounterRegency Hospital [facility]08-29-2022 Miscellaneous Notes* Telephone Encounter - Jayden Connelly APRN.CNP - 03/07/2022 12:22 PM EDT The following approved medication requests have been transmitted electronically. Requested Prescriptions Signed Prescriptions Disp Refills pilocarpine (SALAGEN) 5 mg tablet 90 tablet 0 Sig: TAKE 1 TABLET BY MOUTH THREE TIMES A DAY Authorizing Provider: JAYDEN CONNELLY APRN.CNP documented in this encounterRegency Hospital [facility]08-29-2022 Miscellaneous Notes* Telephone Encounter - Jayden Connelly APRN.CNP - 03/07/2022 11:21 AM EDT The following approved medication requests have been transmitted electronically. Requested Prescriptions Signed Prescriptions Disp Refills losartan (COZAAR) 25 mg tablet 60 tablet 1 Sig: TAKE 2 TABLETS BY MOUTH EVERY DAY Authorizing Provider: JAYDEN CONNELLY APRN.CNP documented in this encounterRegency Hospital [facility]08-05-2022 History of Present illness Narrative* Jayden Connelly APRN.CNP - 02/11/2022 1:21 PM EDT Images from the original note were not included. NAME: Andrei Fish [facility] NO.: [id number] DATE OF SERVICE: February 11, 2022 Some [...] signs of blood clots. She saw Dr. Gilsno Troncoso today. She states that she was [...] why she was going to see a plumbing hardware assembler for her blood pressure. Patient also has [...] file. Jayden Connelly APRN.CNP Services Provided at: [place], [place] CC: Chadd Deluna documented in this encounterRegency Hospital [facility]07-05-2022 Miscellaneous Notes* Telephone Encounter - Jayden Connelly APRN.CNP - 01/11/2022 4:13 PM EDT The following approved medication requests have been transmitted electronically. Signed Prescriptions Disp Refills losartan (COZAAR) 25 mg tablet 60 tablet 1 Sig: TAKE 2 TABLETS BY MOUTH EVERY DAY JOVON: No Authorizing Provider: JAYDEN CONNELLY APRN.CNP documented in this encounterRegency Hospital [facility]06-10-2022 History of Present illness Narrative* Jayden Connelly APRN.CNP - 12/17/2021 3:13 PM EDT Images from the original note were not included. NAME: Andrei Fish CLINIC NO.: [id number] DATE OF SERVICE: December 17, 2021 Some [...] why she was going to see a plumbing hardware assembler for her blood pressure. Patient also has [...] No family history on file. Jayden Connelly APRN.EMERGENCY DEPARTMENT Services Provided at: [place], [place] CC: Chadd Deluna Almost had a fall MRI kidney- [facility] Nephrology documented in this encounterRegency Hospital [facility]05-04-2022 Evaluation note* Encounter Date Diagnosis Assessment Notes [...] advised her to follow with sleep specialist. [facility] Other 04-21-2022 History of Present illness Narrative* Rinku Ramsey MD - 10/28/2021 11:41 AM EDT Images from the original note were not included. NAME: Andrei Fish CLINIC NO.: [id number] DATE OF SERVICE: October 28, 2021 Some elements in this clinic note that are critical to medical decision making have been carefully reviewed and included from a prior clinic note dated: September 16, 2021 Additional Clinicians involved in [place] Ruben Fish's [...] why she was going to see a plumbing hardware assembler for her blood pressure. Patient also has [...] which included preparing to see the patient, [id number] patient care, completing clinical documentation, performing a medically appropriate examination, ordering medications, tests, or procedures and care coordination (not separately reporte d). Rinku Ramsey MD, CPE Services Provided at: [place], [place] & [place], [place] CC: Chadd Deluna documented in this encounterRegency Hospital [facility]04-18-2022 History of Present illness Narrative* Mary Ellen [...] Care Gap or Scheduling/Wellness visits Payer: Payor: [facility] MEDICARE / Plan: UHC AARP MEDICARE HMO [...] 25, 2021 8:13 AM documented in this encounterRegency Hospital [facility]04-12-2022 Miscellaneous Notes* Telephone Encounter - Jayden Connelly [...] Provider: JAYDEN CONNELLY APRN.CNP documented in this encounterRegency Hospital [facility]11-03-2021 Miscellaneous Notes* Telephone Encounter - Krista Harden RPh - 05/12/2021 3:42 PM EDT Andrei has been approved for free Tavalisse 05/10/21-07/09/21. I left Andrei a message 05/12/21 @ 8300 informing her of this and that a Rn from [employer] will be reaching out to her to set up delivery of her Tavalisse if they have not already and to call with any further questions. Gerard Harden RPh documented in this encounterRegency Hospital [facility] WestEvalusaint francis [facility] note* Diagnosis Essential hypertension Unspecified essential hypertension Chronic ITP (idiopathic thrombocytopenia) (HCC) Immune thrombocytopenic purpura Obstructive sleep apnea syndrome Obstructive sleep apnea (adult) (pediatric) Hypertension, unspecified type [facility] Chronic ITP (idiopathic thrombocytopenia) (HCC)- Primary Immune thrombocytopenic purpura Essential hypertension Unspecified essential hypertension Obstructive sleep apnea syndrome Obstructive sleep apnea (adult) (pediatric) Lung nodules Other nonspecific abnormal finding of lung field Systemic lupus erythematosus, unspecified SLE type, unspecified organ involvement status (HCC) [facility] Diagnosis Chronic ITP (idiopathic thrombocytopenia) (HCC)- Primary Immune thrombocytopenic purpura Hypertension, unspecified type Essential hypertension Unspecified essential hypertension Obstructive sleep apnea syndrome Obstructive sleep apnea (adult) (pediatric) Lung nodules Other nonspecific abnormal finding of lung field Systemic lupus erythematosus, unspecified SLE type, unspecified organ involvement status (HCC) [facility]* Diagnosis Hypertension, unspecified type [facility]* Diagnosis Essential hypertension Unspecified essential hypertension Chronic ITP (idiopathic thrombocytopenia) (HCC) Immune thrombocytopenic purpura Obstructive sleep apnea syndrome Obstructive sleep apnea (adult) (pediatric) Hypertension, unspecified type [facility]* Diagnosis Hypertension, unspecified type [facility]* Diagnosis Chronic ITP (idiopathic thrombocytopenia) (HCC)- Primary Immune thrombocytopenic purpura Essential hypertension Unspecified essential hypertension Obstructive sleep apnea syndrome Obstructive sleep apnea (adult) (pediatric) Systemic lupus erythematosus, unspecified SLE type, unspecified organ involvement status (HCC) [facility]* Diagnosis Hypertension, unspecified type [facility]* Diagnosis Chronic ITP (idiopathic thrombocytopenia) (HCC)- Primary Immune thrombocytopenic purpura Obstructive sleep apnea syndrome Obstructive sleep apnea (adult) (pediatric) [facility] Diagnosis Chronic ITP (idiopathic thrombocytopenia) (HCC)- Primary Immune thrombocytopenic purpura Obstructive sleep apnea syndrome Obstructive sleep apnea (adult) (pediatric) Essential hypertension Unspecified essential hypertension [facility] Diagnosis Hypertension, unspecified type documented in this encounter [facility] note* Diagnosis Chronic ITP (idiopathic thrombocytopenia) (HCC)- Primary Immune thrombocytopenic purpura Hypertension, unspecified type Obstructive sleep apnea syndrome Obstructive sleep apnea (adult) (pediatric) Systemic lupus erythematosus, unspecified SLE type, unspecified organ involvement status (HCC) documented in this encounter [facility] note* Diagnosis Chronic ITP (idiopathic thrombocytopenia) (HCC)- Primary Immune thrombocytopenic purpura Obstructive sleep apnea syndrome Obstructive sleep apnea (adult) (pediatric) Hypertension, unspecified type Systemic lupus erythematosus, unspecified SLE type, unspecified organ involvement status (HCC) Malaise and fatigue Other malaise and fatigue Skin lesion of right lower extremity [facility]* Diagnosis Hypertension, unspecified type documented in this encounter [facility] noteNo assessment information [facility] Work Phone: Evaluation note* Diagnosis Chronic ITP (idiopathic thrombocytopenia) (HCC)- Primary Immune thrombocytopenic purpura Obstructive sleep apnea syndrome Obstructive sleep apnea (adult) (pediatric) documented in this encounter [facility] note* Diagnosis Hypertension, unspecified type [facility]* Diagnosis Chronic ITP (idiopathic thrombocytopenia) (HCC)- Primary Immune thrombocytopenic purpura documented in this encounter [facility] note* Diagnosis Chronic ITP (idiopathic thrombocytopenia) (HCC)- Primary Immune thrombocytopenic purpura Hypertension, unspecified type Obstructive sleep apnea syndrome Obstructive sleep apnea (adult) (pediatric) documented in this encounter [facility] note* Diagnosis Chronic ITP (idiopathic thrombocytopenia) (HCC)- Primary Immune thrombocytopenic purpura Essential hypertension Unspecified essential hypertension Obstructive sleep apnea syndrome Obstructive sleep apnea (adult) (pediatric) Systemic lupus erythematosus, unspecified SLE type, unspecified organ involvement status (HCC) documented [facility] this encounter [facility] noteNo InformationNoresearch medical [facility] [employer] Other Evaluation note* Diagnosis Chronic ITP (idiopathic thrombocytopenia) (HCC)- Primary Immune thrombocytopenic purpura documented in this encounter [facility]* Diagnosis Chronic ITP (idiopathic thrombocytopenia) (HCC)- Primary Immune thrombocytopenic purpura Essential hypertension Unspecified essential hypertension [facility]* Diagnosis Chronic ITP (idiopathic thrombocytopenia) (HCC)- Primary Immune thrombocytopenic purpura Essential hypertension Unspecified essential hypertension Hypertension, unspecified type documented [facility]* Diagnosis 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, left [facility] Diagnosis 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 [facility]* Diagnosis Chronic ITP (idiopathic thrombocytopenia) (HCC)- Primary Immune thrombocytopenic purpura Essential hypertension Unspecified essential hypertension Obstructive sleep apnea syndrome Obstructive sleep apnea (adult) (pediatric) Systemic lupus erythematosus, unspecified SLE type, unspecified organ involvement status ([facility]) Malaise and fatigue Other malaise and fatigue documented [facility] this encounter [facility]* Diagnosis Hypertension, unspecified type documented in this encounter [facility]* Diagnosis Cholesteatoma of left ear documented in this encounter [facility] Work Phone: Evaluation note* Diagnosis Cholesteatoma of left ear Perforation of left tympanic membrane Cholesteatoma of left ear documented in this encounter [facility] Work Phone: Evaluation note* Diagnosis Chronic ITP (idiopathic thrombocytopenia) (HCC)- Primary Immune thrombocytopenic purpura Stage 3b chronic kidney disease (HCC) Secondary hypertension Other secondary hypertension, unspecified Obstructive sleep apnea syndrome Obstructive sleep apnea (adult) (pediatric) documented in this encounter [facility]* Diagnosis Preoperative examination- Primary Preoperative examination, unspecified Preoperative clearance- Primary Preoperative examination, unspecified documented in this encounter [facility] note* Diagnosis Cholesteatoma of left ear- Primary Preoperative clearance Unspecified pre-operative examination Cholesteatoma of left ear Post-operative pain Other acute postoperative pain HTN (hypertension) Unspecified essential hypertension documented in this encounter [facility] Work Phone: Evaluation note* Diagnosis Essential hypertension Unspecified essential hypertension Chronic ITP (idiopathic thrombocytopenia) (HCC) Immune thrombocytopenic purpura Obstructive sleep apnea syndrome Obstructive sleep apnea (adult) (pediatric) documented in this encounter [facility]* Diagnosis Chronic ITP (idiopathic thrombocytopenia) (HCC)- Primary Immune thrombocytopenic purpura Essential hypertension Unspecified essential hypertension Obstructive sleep apnea syndrome Obstructive sleep apnea (adult) (pediatric) Stage 3b chronic kidney disease (HCC) [facility] Diagnosis 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 Other vitamin B12 deficiency anemia Abnormal weight loss Loss of weight Lupus (HCC) Systemic lupus erythematosus Thrombocytopenia (HCC) Thrombocytopenia, unspecified Chronic ITP (idiopathic thrombocytopenia) (HCC) Immune thrombocytopenic purpura [facility] Diagnosis Chronic ITP (idiopathic thrombocytopenia) (HCC)- 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 Other vitamin B12 deficiency anemia Obstructive sleep apnea syndrome Obstructive sleep apnea (adult) (pediatric) [facility] Diagnosis Left leg pain- Primary Pain in soft tissues of limb documented in this encounter [facility]* Diagnosis 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 ([facility]/HCC[facility] 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 Other vitamin B12 deficiency anemia Thrombocytopenia (HCC) Thrombocytopenia, unspecified Lupus Systemic lupus erythematosus Abnormal weight loss Loss of weight Chronic ITP (idiopathic thrombocytopenia) (HCC) Immune thrombocytopenic purpura [facility] Diagnosis Hyperglycemia- Primary Other abnormal glucose Chronic ITP (idiopathic thrombocytopenia) (HCC) 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 Other vitamin B12 deficiency anemia Obstructive sleep apnea syndrome Obstructive sleep apnea (adult) (pediatric) [facility] Diagnosis Ruptured ear drum, left- Primary Age-related osteoporosis without current pathological fracture ([facility]/HCC) Leg pain, bilateral Pain in soft tissues [...] peripheral vascular disease 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 (CMS/HCC)- Primary Calcification of aortic valve Essential hypertension (CMS/HCC) Unspecified essential hypertension Thyroid nodule (CMS/HCC) Nontoxic uninodular goiter Obstructive sleep apnea syndrome- Primary Obstructive sleep apnea (adult) (pediatric) PAH (pulmonary artery hypertension) (CMS/HCC) Other chronic pulmonary heart diseases 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 (CMS/HCC)- Primary Elevated glucose level Essential hypertension (CMS/HCC) Unspecified essential hypertension Encounter for screening mammogram for malignant neoplasm of breast Other chest pain Disease of thyroid gland (CMS/HCC) Unspecified disorder of thyroid Obesity (BMI 30-39.9) Posterior left knee pain Thyroid nodule (CMS/HCC)- Primary Nontoxic uninodular goiter 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 (CMS/HCC) Pre-diabetes Other abnormal glucose Obesity (BMI 30-39.9) Diarrhea, unspecified type documented in this encounter [facility]* Diagnosis Ruptured ear drum, left- [...] peripheral vascular disease 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 (CMS/HCC)- Primary Calcification of aortic valve Essential hypertension (CMS/HCC) Unspecified essential hypertension Thyroid nodule (CMS/HCC) Nontoxic uninodular goiter Obstructive sleep apnea syndrome- Primary Obstructive sleep apnea (adult) (pediatric) PAH (pulmonary artery hypertension) (CMS/HCC) Other chronic pulmonary heart diseases 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 (CMS/HCC)- Primary Elevated glucose level Essential hypertension (CMS/HCC) Unspecified essential hypertension Encounter for screening mammogram for malignant neoplasm of breast Other chest pain Disease of thyroid gland (CMS/HCC) Unspecified disorder of thyroid Obesity (BMI 30-39.9) Posterior left knee pain Thyroid nodule (CMS/HCC)- Primary Nontoxic uninodular goiter 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 (CMS/HCC) Pre-diabetes Other abnormal glucose Obesity (BMI 30-39.9) Diarrhea, unspecified type Multiple lung nodules on CT- Primary documented in this encounter [facility]* Diagnosis Ruptured ear drum, left- [...] peripheral vascular disease 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 (CMS/HCC)- Primary Calcification of aortic valve Essential hypertension (CMS/HCC) Unspecified essential hypertension Thyroid nodule (CMS/HCC) Nontoxic uninodular goiter Obstructive sleep apnea syndrome- Primary Obstructive sleep apnea (adult) (pediatric) PAH (pulmonary artery hypertension) (CMS/HCC) Other chronic pulmonary heart diseases 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 (CMS/HCC)- Primary Elevated glucose level Essential hypertension (CMS/HCC) Unspecified essential hypertension Encounter for screening mammogram for malignant neoplasm of breast Other chest pain Disease of thyroid gland (CMS/HCC) Unspecified disorder of thyroid Obesity (BMI 30-39.9) Posterior left knee pain Thyroid nodule (CMS/HCC)- Primary Nontoxic uninodular goiter 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 (CMS/HCC) Pre-diabetes Other abnormal glucose Obesity (BMI 30-39.9) Diarrhea, unspecified type Encounter for subsequent annual wellness visit (AWV) in Medicare patient- Primary Tobacco dependence Tobacco use disorder Pre-diabetes Other abnormal glucose Obesity (BMI 30-39.9) Age-related osteoporosis without current pathological fracture (CMS/HCC) 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 (CMS/HCC) Essential hypertension [...] peripheral vascular disease 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 (CMS/HCC)- Primary Calcification of aortic valve Essential hypertension (CMS/HCC) Unspecified essential hypertension Thyroid nodule (CMS/HCC) Nontoxic uninodular goiter Obstructive sleep apnea syndrome- Primary Obstructive sleep apnea (adult) (pediatric) PAH (pulmonary artery hypertension) (CMS/HCC) Other chronic pulmonary heart diseases 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 (CMS/HCC)- Primary Elevated glucose level Essential hypertension (CMS/HCC) Unspecified essential hypertension Encounter for screening mammogram for malignant neoplasm of breast Other chest pain Disease of thyroid gland (CMS/HCC) Unspecified disorder of thyroid Obesity (BMI 30-39.9) Posterior left knee pain Thyroid nodule (CMS/HCC)- Primary Nontoxic uninodular goiter 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 (CMS/HCC) Pre-diabetes Other [...] pathological fracture (CMS/HCC) 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 (CMS/HCC) Essential hypertension [...] peripheral vascular disease 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 (CMS/HCC)- Primary Calcification of aortic valve Essential hypertension (CMS/HCC) Unspecified essential hypertension Thyroid nodule (CMS/HCC) Nontoxic uninodular goiter Obstructive sleep apnea syndrome- Primary Obstructive sleep apnea (adult) (pediatric) PAH (pulmonary artery hypertension) (CMS/HCC) Other chronic pulmonary heart diseases 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 (CMS/HCC)- Primary Elevated glucose level Essential hypertension (CMS/HCC) Unspecified essential hypertension Encounter for screening mammogram for malignant neoplasm of breast Other chest pain Disease of thyroid gland (CMS/HCC) Unspecified disorder of thyroid Obesity (BMI 30-39.9) Posterior left knee pain Thyroid nodule (CMS/HCC)- Primary Nontoxic uninodular goiter 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 (CMS/HCC) Pre-diabetes Other abnormal glucose Obesity (BMI 30-39.9) Diarrhea, unspecified type Encounter for subsequent annual wellness visit (AWV) in Medicare patient- Primary Tobacco dependence Tobacco use disorder Pre-diabetes Other abnormal glucose Obesity (BMI 30-39.9) Age-related osteoporosis without current pathological fracture (CMS/HCC) 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 (CMS/HCC) Essential hypertension (CMS/HCC) Unspecified essential hypertension Multiple lung nodules on CT- Primary documented in this encounter [facility]* Diagnosis Ruptured ear [...] peripheral vascular disease 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 (CMS/HCC)- Primary Calcification of aortic valve Essential hypertension (CMS/HCC) Unspecified essential hypertension Thyroid nodule (CMS/HCC) Nontoxic uninodular goiter Obstructive sleep apnea syndrome- Primary Obstructive sleep apnea (adult) (pediatric) PAH (pulmonary artery hypertension) (CMS/HCC) Other chronic pulmonary heart diseases 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 (CMS/HCC)- Primary Elevated glucose level Essential hypertension (CMS/HCC) Unspecified essential hypertension Encounter for screening mammogram for malignant neoplasm of breast Other chest pain Disease of thyroid gland (CMS/HCC) Unspecified disorder of thyroid Obesity (BMI 30-39.9) Posterior left knee pain Thyroid nodule (CMS/HCC)- Primary Nontoxic uninodular goiter 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 (CMS/HCC) Pre-diabetes Other abnormal glucose Obesity (BMI 30-39.9) Diarrhea, unspecified type Encounter for subsequent annual wellness visit (AWV) in Medicare patient- Primary Tobacco dependence Tobacco use disorder Pre-diabetes Other abnormal glucose Obesity (BMI 30-39.9) Age-related osteoporosis without current pathological fracture (CMS/HCC) 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 (CMS/HCC) Essential hypertension (CMS/HCC) Unspecified essential hypertension Hyperthyroidism (CMS/HCC)- Primary Thyrotoxicosis without mention of goiter or other cause, without mention of thyrotoxic crisis or storm Thyroid nodule (CMS/HCC) Nontoxic uninodular goiter documented in this encounter [facility]Evaluation note* Diagnosis Ruptured ear [...] peripheral vascular disease 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 (CMS/HCC)- Primary Calcification of aortic valve Essential hypertension (CMS/HCC) Unspecified essential hypertension Thyroid nodule (CMS/HCC) Nontoxic uninodular goiter Obstructive sleep apnea syndrome- Primary Obstructive sleep apnea (adult) (pediatric) PAH (pulmonary artery hypertension) (CMS/HCC) Other chronic pulmonary heart diseases 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 (CMS/HCC)- Primary Elevated glucose level Essential hypertension (CMS/HCC) Unspecified essential hypertension Encounter for screening mammogram for malignant neoplasm of breast Other chest pain Disease of thyroid gland (CMS/HCC) Unspecified disorder of thyroid Obesity (BMI 30-39.9) Posterior left knee pain Thyroid nodule (CMS/HCC)- Primary Nontoxic uninodular goiter 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 (CMS/HCC) Pre-diabetes Other abnormal glucose Obesity (BMI 30-39.9) Diarrhea, unspecified type Encounter for subsequent annual wellness visit (AWV) in Medicare patient- Primary Tobacco dependence Tobacco use disorder Pre-diabetes Other abnormal glucose Obesity (BMI 30-39.9) Age-related osteoporosis without current pathological fracture (CMS/HCC) 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 (CMS/HCC) Essential hypertension (CMS/HCC) Unspecified essential hypertension Multiple lung nodules on CT- Primary documented in this encounter [facility]* Diagnosis 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 Other vitamin B12 deficiency anemia Chronic ITP (idiopathic thrombocytopenia) (HCC) Immune thrombocytopenic purpura Thrombocytopenia (HCC) Thrombocytopenia, unspecified Hyperglycemia Other abnormal glucose Obstructive sleep apnea syndrome Obstructive sleep apnea (adult) (pediatric) [facility] Diagnosis Chronic ITP (idiopathic thrombocytopenia) (HCC)- Primary Immune thrombocytopenic purpura Stage 3b chronic kidney disease (HCC) Secondary hypertension Other secondary hypertension, unspecified [facility] Diagnosis Obstructive sleep apnea syndrome- Primary Obstructive sleep apnea (adult) (pediatric) PAH (pulmonary artery hypertension) (CMS/HCC) Other chronic pulmonary heart diseases documented in this encounter [facility]* Diagnosis Cholesteatoma of left ear- Primary Encounter for postoperative care documented in this encounter [facility] Work Phone: Evaluation note* Diagnosis Thyroid nodule (CMS/HCC)- Primary Nontoxic uninodular goiter Calcification of aortic valve 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 (CMS/HCC) documented in this encounter [facility]* Diagnosis 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 (CMS/HCC)- Primary Calcification of aortic valve Essential hypertension (CMS/HCC) Unspecified essential hypertension Thyroid nodule (CMS/HCC) Nontoxic uninodular goiter documented in this encounter [facility]* Diagnosis 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 (CMS/HCC) documented in this encounter [facility]* Diagnosis 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 (CMS/HCC)- Primary Elevated glucose level Essential hypertension (CMS/HCC) Unspecified essential hypertension Encounter for screening mammogram for malignant neoplasm of breast Other chest pain Disease of thyroid gland (CMS/HCC) Unspecified disorder of thyroid Obesity (BMI 30-39.9) Posterior left knee pain documented in this encounter [facility]* Diagnosis Disease of thyroid gland (CMS/HCC)- Primary Unspecified disorder of thyroid documented in this encounter [facility]* Diagnosis 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 Other vitamin B12 deficiency anemia Thrombocytopenia (HCC) Thrombocytopenia, unspecified Abnormal weight loss Loss of weight Chronic ITP (idiopathic thrombocytopenia) (HCC) Immune thrombocytopenic purpura [facility] Diagnosis 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 Other vitamin B12 deficiency anemia Chronic ITP (idiopathic thrombocytopenia) (HCC) Immune thrombocytopenic purpura [facility] Hypertension, unspecified type [facility] Diagnosis Ruptured ear drum, left- Primary Age-related osteoporosis without current pathological fracture ([facility]/HCC) Leg pain, bilateral Pain in soft tissues [...] peripheral vascular disease 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 (CMS/HCC)- Primary Calcification of aortic valve Essential hypertension (CMS/HCC) Unspecified essential hypertension Thyroid nodule (CMS/HCC) Nontoxic uninodular goiter Obstructive sleep apnea syndrome- Primary Obstructive sleep apnea (adult) (pediatric) PAH (pulmonary artery hypertension) (CMS/HCC) Other chronic pulmonary heart diseases 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 (CMS/HCC)- Primary Elevated glucose level Essential hypertension (CMS/HCC) Unspecified essential hypertension Encounter for screening mammogram for malignant neoplasm of breast Other chest pain Disease of thyroid gland (CMS/HCC) Unspecified disorder of thyroid Obesity (BMI 30-39.9) Posterior left knee pain Thyroid nodule (CMS/HCC)- Primary Nontoxic uninodular goiter 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 (CMS/HCC) Pre-diabetes Other abnormal glucose Obesity (BMI 30-39.9) Diarrhea, unspecified type Encounter for subsequent annual wellness visit (AWV) in Medicare patient- Primary Tobacco dependence Tobacco use disorder Pre-diabetes Other abnormal glucose Obesity (BMI 30-39.9) Age-related osteoporosis without current pathological fracture (CMS/HCC) 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 (CMS/HCC) Essential hypertension (CMS/HCC) Unspecified essential hypertension Essential hypertension (CMS/HCC)- Primary Unspecified essential hypertension Systemic lupus erythematosus, unspecified (CMS/HCC) 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 Chronic kidney disease, stage 3a (HCC) (CMS/HCC) 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 Secondary pulmonary arterial hypertension (CMS/HCC) 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 (CMS/HCC) PAH (pulmonary [...] disease) stage 3, GFR 30-59 ml/min acute ua 2024 12:51pm Complex renal cyst acute ua 2024 12:51pm Hypertensive chronic kidney disease with stage 1 through stage 4 chronic ki acute August 12:51pm Hyperuricemia acute August 212024 12:51pm Lupus acute August 21, 2024 12:51pm ADALBERTO (obstructive sleep apnea) acute August 21, 2024 12:51pm Vitamin D deficiency acute ua2024 12:51pm [facility] Work Phone: Evaluation note* Diagnosis 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 Other vitamin B12 deficiency anemia Thrombocytopenia (HCC) Thrombocytopenia, unspecified Abnormal weight loss Loss of weight Chronic ITP (idiopathic thrombocytopenia) (HCC) Immune thrombocytopenic purpura [facility] Diagnosis 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 Other vitamin B12 deficiency anemia Thrombocytopenia (HCC) Thrombocytopenia, unspecified Chronic ITP (idiopathic thrombocytopenia) (HCC) Immune thrombocytopenic purpura [facility] Diagnosis Ruptured ear drum, left- Primary [...] peripheral vascular disease 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 (CMS/HCC)- Primary Calcification of aortic valve Essential hypertension (CMS/HCC) Unspecified essential hypertension Thyroid nodule (CMS/HCC) Nontoxic uninodular goiter Obstructive sleep apnea syndrome- Primary Obstructive sleep apnea (adult) (pediatric) PAH (pulmonary artery hypertension) (CMS/HCC) Other chronic pulmonary heart diseases 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 (CMS/HCC)- Primary Elevated glucose level Essential hypertension (CMS/HCC) Unspecified essential hypertension Encounter for screening mammogram for malignant neoplasm of breast Other chest pain Disease of thyroid gland (CMS/HCC) Unspecified disorder of thyroid Obesity (BMI 30-39.9) Posterior left knee pain Thyroid nodule (CMS/HCC)- Primary Nontoxic uninodular goiter 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 (CMS/HCC) Pre-diabetes Other abnormal glucose Obesity (BMI 30-39.9) Diarrhea, unspecified type Encounter for subsequent annual wellness visit (AWV) in Medicare patient- Primary Tobacco dependence Tobacco use disorder Pre-diabetes Other abnormal glucose Obesity (BMI 30-39.9) Age-related osteoporosis without current pathological fracture (CMS/HCC) 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 (CMS/HCC) Essential hypertension (CMS/HCC) Unspecified essential hypertension Essential hypertension (CMS/HCC)- Primary Unspecified essential hypertension Systemic lupus erythematosus, unspecified 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 Chronic kidney disease, stage 3a (HCC) (CMS/HCC) 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 Secondary pulmonary arterial hypertension (CMS/HCC) 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 (CMS/HCC) PAH (pulmonary artery hypertension) (CMS/HCC) Other chronic pulmonary heart diseases Obesity (BMI 30-39.9) Pre-diabetes Other abnormal glucose Tobacco dependence Tobacco use disorder Multiple lung nodules on CT Family history of cancer Family history of unspecified malignant neoplasm 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 (CMS/HCC) [facility] Diagnosis 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 Other vitamin B12 deficiency anemia Thrombocytopenia Thrombocytopenia, unspecified [facility] Diagnosis 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 Other vitamin B12 deficiency anemia Thrombocytopenia Thrombocytopenia, unspecified Abnormal weight loss Loss of weight Chronic ITP (idiopathic thrombocytopenia) (HCC) Immune thrombocytopenic purpura [facility] Diagnosis 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 Other vitamin B12 deficiency anemia Thrombocytopenia Thrombocytopenia, unspecified Abnormal weight loss Loss of weight Chronic ITP (idiopathic thrombocytopenia) (HCC) Immune thrombocytopenic purpura [facility] Diagnosis Chronic ITP (idiopathic thrombocytopenia) (HCC)- Primary Immune thrombocytopenic purpura Stage 3b chronic kidney disease (HCC) 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) Megaloblastic anemia due to vitamin B12 deficiency Other vitamin B12 deficiency anemia Systemic lupus erythematosus, unspecified SLE type, unspecified organ involvement status ([facility] [facility]) [facility] Cholesteatoma of left ear- Primary 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 Preoperative clearance Unspecified pre-operative examination Thrombocytopenia Unspecified thrombocytopenia 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- Primary documented in this encounter [facility] Work Phone: Evaluation note* Diagnosis 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)- Primary [facility] Diagnosis 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)- Primary Megaloblastic anemia due to vitamin B12 deficiency Other vitamin B12 deficiency anemia Abnormal weight loss Loss of weight Other systemic lupus erythematosus with other organ involvement (HCC) Thrombocytopenia Thrombocytopenia, unspecified Chronic ITP (idiopathic thrombocytopenia) (HCC) Immune thrombocytopenic purpura [facility] Diagnosis Ruptured ear drum, left- Primary [...] peripheral vascular disease 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- Primary Calcification of aortic valve Essential hypertension Unspecified essential hypertension Thyroid nodule Nontoxic uninodular goiter Obstructive sleep apnea syndrome- Primary Obstructive sleep apnea (adult) (pediatric) PAH (pulmonary artery hypertension) (HCC) Other chronic pulmonary heart diseases 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- Primary Elevated glucose level Essential hypertension Unspecified essential hypertension Encounter for screening mammogram for malignant neoplasm of breast Other chest pain Disease of thyroid gland Unspecified disorder of thyroid Obesity (BMI 30-39.9) Posterior left knee pain Thyroid nodule- Primary Nontoxic uninodular goiter 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 Pre-diabetes Other abnormal glucose Obesity (BMI 30-39.9) Diarrhea, unspecified type Encounter for subsequent annual wellness visit (AWV) in Medicare patient- Primary Tobacco dependence Tobacco use disorder Pre-diabetes Other abnormal glucose Obesity (BMI 30-39.9) Age-related osteoporosis without current pathological fracture 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 Essential hypertension Unspecified essential hypertension Essential hypertension- Primary Unspecified essential hypertension Systemic lupus erythematosus, unspecified (HCC) 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 Chronic kidney disease, stage 3a (CMS-HCC) 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 Secondary pulmonary arterial hypertension (HCC) 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 PAH (pulmonary artery hypertension) (HCC) Other chronic pulmonary heart diseases Obesity (BMI 30-39.9) Pre-diabetes Other abnormal glucose Tobacco dependence Tobacco use disorder Multiple lung nodules on CT Family history of cancer Family history of unspecified malignant neoplasm Diarrhea, unspecified type- Primary Chronic kidney disease, stage 3b (CMS-HCC) 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 Essential hypertension Unspecified [...] peripheral vascular disease 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- Primary Calcification of aortic valve Essential hypertension Unspecified essential hypertension Thyroid nodule Nontoxic uninodular goiter Obstructive sleep apnea syndrome- Primary Obstructive sleep apnea (adult) (pediatric) PAH (pulmonary artery hypertension) (HCC) Other chronic pulmonary heart diseases 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- Primary Elevated glucose level Essential hypertension Unspecified essential hypertension Encounter for screening mammogram for malignant neoplasm of breast Other chest pain Disease of thyroid gland Unspecified disorder of thyroid Obesity (BMI 30-39.9) Posterior left knee pain Thyroid nodule- Primary Nontoxic uninodular goiter 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 Pre-diabetes Other abnormal glucose Obesity (BMI 30-39.9) Diarrhea, unspecified type Encounter for subsequent annual wellness visit (AWV) in Medicare patient- Primary Tobacco dependence Tobacco use disorder Pre-diabetes Other abnormal glucose Obesity (BMI 30-39.9) Age-related osteoporosis without current pathological fracture 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 Essential hypertension Unspecified essential hypertension Essential hypertension- Primary Unspecified essential hypertension Systemic lupus erythematosus, unspecified (HCC) 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 Chronic kidney disease, stage 3a (CMS-HCC) 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 Secondary pulmonary arterial hypertension (HCC) 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 PAH (pulmonary artery hypertension) (HCC) Other chronic pulmonary heart diseases Obesity (BMI 30-39.9) Pre-diabetes Other abnormal glucose Tobacco dependence Tobacco use disorder Multiple lung nodules on CT Family history of cancer Family history of unspecified malignant neoplasm Diarrhea, unspecified type- Primary Chronic kidney disease, stage 3b (CMS-HCC) 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 Essential hypertension Unspecified essential hypertension Obesity (BMI 30-39.9) Pre-diabetes Other abnormal glucose Chronic ITP (idiopathic thrombocytopenia) (HCC) Tobacco dependence Tobacco use disorder Thyroid nodule Nontoxic uninodular goiter 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 documented [facility]* Diagnosis Ruptured ear drum, left- [...] peripheral vascular disease 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- Primary Calcification of aortic valve Essential hypertension Unspecified essential hypertension Thyroid nodule Nontoxic uninodular goiter Obstructive sleep apnea syndrome- Primary Obstructive sleep apnea (adult) (pediatric) PAH (pulmonary artery hypertension) (HCC) Other chronic pulmonary heart diseases 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- Primary Elevated glucose level Essential hypertension Unspecified essential hypertension Encounter for screening mammogram for malignant neoplasm of breast Other chest pain Disease of thyroid gland Unspecified disorder of thyroid Obesity (BMI 30-39.9) Posterior left knee pain Thyroid nodule- Primary Nontoxic uninodular goiter 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 Pre-diabetes Other abnormal glucose Obesity (BMI 30-39.9) Diarrhea, unspecified type Encounter for subsequent annual wellness visit (AWV) in Medicare patient- Primary Tobacco dependence Tobacco use disorder Pre-diabetes Other abnormal glucose Obesity (BMI 30-39.9) Age-related osteoporosis without current pathological fracture 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 Essential hypertension Unspecified essential hypertension Essential hypertension- Primary Unspecified essential hypertension Systemic lupus erythematosus, unspecified (HCC) 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 Chronic kidney disease, stage 3a (CMS-HCC) 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 Secondary pulmonary arterial hypertension (HCC) 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 PAH (pulmonary artery hypertension) (HCC) Other chronic pulmonary heart diseases Obesity (BMI 30-39.9) Pre-diabetes Other abnormal glucose Tobacco dependence Tobacco use disorder Multiple lung nodules on CT Family history of cancer Family history of unspecified malignant neoplasm Diarrhea, unspecified type- Primary Chronic kidney disease, stage 3b (CMS-HCC) 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 Essential hypertension Unspecified essential hypertension Obesity (BMI 30-39.9) Pre-diabetes Other abnormal glucose Chronic ITP (idiopathic thrombocytopenia) (HCC) Tobacco dependence Tobacco use disorder Thyroid nodule Nontoxic uninodular goiter Age-related osteoporosis without current pathological fracture- Primary [facility] Essential hypertension Unspecified essential hypertension Chronic ITP (idiopathic thrombocytopenia) (HCC) Immune thrombocytopenic purpura Obstructive sleep apnea syndrome Obstructive sleep apnea (adult) (pediatric) [facility] 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)- Primary [facility] Diagnosis Malaise and fatigue- Primary Other malaise and fatigue 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) Megaloblastic anemia due to vitamin B12 deficiency Other vitamin B12 deficiency anemia Thrombocytopenia Thrombocytopenia, unspecified Chronic ITP (idiopathic thrombocytopenia) (HCC) Immune thrombocytopenic purpura [facility] Ruptured ear drum, left- [...] peripheral vascular disease 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- Primary Calcification of aortic valve Essential hypertension Unspecified essential hypertension Thyroid nodule Nontoxic uninodular goiter Obstructive sleep apnea syndrome- Primary Obstructive sleep apnea (adult) (pediatric) PAH (pulmonary artery hypertension) (HCC) Other chronic pulmonary heart diseases 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- Primary Elevated glucose level Essential hypertension Unspecified essential hypertension Encounter for screening mammogram for malignant neoplasm of breast Other chest pain Disease of thyroid gland Unspecified disorder of thyroid Obesity (BMI 30-39.9) Posterior left knee pain Thyroid nodule- Primary Nontoxic uninodular goiter 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 Pre-diabetes Other abnormal glucose Obesity (BMI 30-39.9) Diarrhea, unspecified type Encounter for subsequent annual wellness visit (AWV) in Medicare patient- Primary Tobacco dependence Tobacco use disorder Pre-diabetes Other abnormal glucose Obesity (BMI 30-39.9) Age-related osteoporosis without current pathological fracture 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 Essential hypertension Unspecified essential hypertension Essential hypertension- Primary Unspecified essential hypertension Systemic lupus erythematosus, unspecified (HCC) 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 Chronic kidney disease, stage 3a (CMS-HCC) 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 Secondary pulmonary arterial hypertension (HCC) 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 PAH (pulmonary artery hypertension) (HCC) Other chronic pulmonary heart diseases Obesity (BMI 30-39.9) Pre-diabetes Other abnormal glucose Tobacco dependence Tobacco use disorder Multiple lung nodules on CT Family history of cancer Family history of unspecified malignant neoplasm Diarrhea, unspecified type- Primary Chronic kidney disease, stage 3b (CMS-HCC) 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 Essential hypertension Unspecified essential hypertension Obesity (BMI 30-39.9) Pre-diabetes Other abnormal glucose Chronic ITP (idiopathic thrombocytopenia) (HCC) Tobacco dependence Tobacco use disorder Thyroid nodule Nontoxic uninodular goiter DARYL (acute kidney injury)- Primary Essential hypertension Unspecified essential hypertension Chronic kidney disease, stage 3b (CMS-HCC) Diarrhea, unspecified type Tobacco dependence Tobacco use disorder documented in [facility] encounter [facility]* Diagnosis Ruptured ear [...] peripheral vascular disease 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- Primary Calcification of aortic valve Essential hypertension Unspecified essential hypertension Thyroid nodule Nontoxic uninodular goiter Obstructive sleep apnea syndrome- Primary Obstructive sleep apnea (adult) (pediatric) PAH (pulmonary artery hypertension) (HCC) Other chronic pulmonary heart diseases 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- Primary Elevated glucose level Essential hypertension Unspecified essential hypertension Encounter for screening mammogram for malignant neoplasm of breast Other chest pain Disease of thyroid gland Unspecified disorder of thyroid Obesity (BMI 30-39.9) Posterior left knee pain Thyroid nodule- Primary Nontoxic uninodular goiter 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 Pre-diabetes Other abnormal glucose Obesity (BMI 30-39.9) Diarrhea, unspecified type Encounter for subsequent annual wellness visit (AWV) in Medicare patient- Primary Tobacco dependence Tobacco use disorder Pre-diabetes Other abnormal glucose Obesity (BMI 30-39.9) Age-related osteoporosis without current pathological fracture 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 Essential hypertension Unspecified essential hypertension Essential hypertension- Primary Unspecified essential hypertension Systemic lupus erythematosus, unspecified (HCC) 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 Chronic kidney disease, stage 3a (CMS-HCC) 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 Secondary pulmonary arterial hypertension (HCC) 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 PAH (pulmonary artery hypertension) (HCC) Other chronic pulmonary heart diseases Obesity (BMI 30-39.9) Pre-diabetes Other abnormal glucose Tobacco dependence Tobacco use disorder Multiple lung nodules on CT Family history of cancer Family history of unspecified malignant neoplasm Diarrhea, unspecified type- Primary Chronic kidney disease, stage 3b (CMS-HCC) 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 Essential hypertension Unspecified [...] spondylosis without myelopathy [facility] Diagnosis 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 Other vitamin B12 deficiency anemia Abnormal weight loss Loss of weight Other systemic lupus erythematosus with other organ involvement (HCC) Thrombocytopenia Thrombocytopenia, unspecified Chronic ITP (idiopathic thrombocytopenia) (HCC) Immune thrombocytopenic purpura 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) [facility] Diagnosis Ruptured ear drum, left- Primary [...] peripheral vascular disease 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- Primary Calcification of aortic valve Essential hypertension Unspecified essential hypertension Thyroid nodule Nontoxic uninodular goiter Obstructive sleep apnea syndrome- Primary Obstructive sleep apnea (adult) (pediatric) PAH (pulmonary artery hypertension) (HCC) Other chronic pulmonary heart diseases 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- Primary Elevated glucose level Essential hypertension Unspecified essential hypertension Encounter for screening mammogram for malignant neoplasm of breast Other chest pain Disease of thyroid gland Unspecified disorder of thyroid Obesity (BMI 30-39.9) Posterior left knee pain Thyroid nodule- Primary Nontoxic uninodular goiter 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 Pre-diabetes Other abnormal glucose Obesity (BMI 30-39.9) Diarrhea, unspecified type Encounter for subsequent annual wellness visit (AWV) in [employer] patient- Primary Tobacco dependence Tobacco use disorder Pre-diabetes Other abnormal glucose Obesity (BMI 30-39.9) Age-related osteoporosis without current pathological fracture 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 Essential hypertension Unspecified essential hypertension Essential hypertension- Primary Unspecified essential hypertension Systemic lupus erythematosus, unspecified (HCC) 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 Chronic kidney disease, stage 3a (CMS-HCC) 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 Secondary pulmonary arterial hypertension (HCC) 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 PAH (pulmonary artery hypertension) (HCC) Other chronic pulmonary heart diseases Obesity (BMI 30-39.9) Pre-diabetes Other abnormal glucose Tobacco dependence Tobacco use disorder Multiple lung nodules on CT Family history of cancer Family history of unspecified malignant neoplasm Diarrhea, unspecified type- Primary Chronic kidney disease, stage 3b (CMS-HCC) 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 Essential hypertension Unspecified essential hypertension Obesity (BMI 30-39.9) Pre-diabetes Other abnormal glucose Chronic ITP (idiopathic thrombocytopenia) (HCC) Tobacco dependence Tobacco use disorder Thyroid nodule Nontoxic uninodular goiter DARYL (acute kidney injury)- Primary Essential hypertension Unspecified essential hypertension Chronic kidney disease, stage 3b ([facility]) Diarrhea, unspecified type Tobacco dependence Tobacco use disorder Weakness of both legs- Primary Muscle weakness (generalized) Chronic kidney disease, stage 3b ([facility]) Obesity (BMI 30-39.9) Tobacco dependence Tobacco use disorder Lumbar spondylosis Lumbosacral spondylosis without myelopathy Abdominal aortic aneurysm (AAA) without rupture, unspecified part- Primary [facility] Onset Date Resolution Status Admit [...] D deficiency acute January 27, 2025 1:48pm [facility] Work Phone: Evaluation note* Diagnosis 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)- Primary [facility] Diagnosis 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)- Primary [facility] Diagnosis 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- Primary 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 Cholesteatoma of left ear documented in this encounter [facility] Work Phone: Evaluation note* Diagnosis 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 Other vitamin B12 deficiency anemia 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) Thrombocytopenia Thrombocytopenia, unspecified Chronic ITP (idiopathic thrombocytopenia) ([facility]) Immune thrombocytopenic purpura Essential hypertension Unspecified essential hypertension Obstructive sleep apnea syndrome Obstructive sleep apnea (adult) (pediatric) Abdominal aortic aneurysm (AAA) without rupture, unspecified part [facility] Diagnosis 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 Other vitamin B12 deficiency anemia Abnormal weight loss Loss of weight Other systemic lupus erythematosus with other organ involvement (HCC) Thrombocytopenia Thrombocytopenia, unspecified Chronic ITP (idiopathic thrombocytopenia) (HCC) Immune thrombocytopenic purpura 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 chronic kidney disease ([facility]) [facility] Diagnosis Ruptured ear drum, left- Primary [...] unspecified (HCC) Chronic kidney disease, stage 3b ([facility]) Claudication of both lower extremities Obesity (BMI 30-39.9) Tobacco dependence Tobacco use disorder PAD (peripheral artery disease) Unspecified peripheral vascular disease 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- Primary Calcification of aortic valve Essential hypertension Unspecified essential hypertension Thyroid nodule Nontoxic uninodular goiter Obstructive sleep apnea syndrome- Primary Obstructive sleep apnea (adult) (pediatric) PAH (pulmonary artery hypertension) (HCC) Other chronic pulmonary heart diseases 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- Primary Elevated glucose level Essential hypertension Unspecified essential hypertension Encounter for screening mammogram for malignant neoplasm of breast Other chest pain Disease of thyroid gland Unspecified disorder of thyroid Obesity (BMI 30-39.9) Posterior left knee pain Thyroid nodule- Primary Nontoxic uninodular goiter 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 Pre-diabetes Other abnormal glucose Obesity (BMI 30-39.9) Diarrhea, unspecified type Encounter for subsequent annual wellness visit (AWV) in [employer] patient- Primary Tobacco dependence Tobacco use disorder Pre-diabetes Other abnormal glucose Obesity (BMI 30-39.9) Age-related osteoporosis without current pathological fracture 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 Essential hypertension Unspecified essential hypertension Essential hypertension- Primary Unspecified essential hypertension Systemic lupus erythematosus, unspecified (HCC) 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 Chronic kidney disease, stage 3a (CMS-HCC) 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 Secondary pulmonary arterial hypertension (HCC) 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 PAH (pulmonary artery hypertension) (HCC) Other chronic pulmonary heart diseases Obesity (BMI 30-39.9) Pre-diabetes Other abnormal glucose Tobacco dependence Tobacco use disorder Multiple lung nodules on CT Family history of cancer Family history of unspecified malignant neoplasm Diarrhea, unspecified type- Primary Chronic kidney disease, stage 3b (CMS-HCC) 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 Essential hypertension Unspecified [...] disorder Lumbar spondylosis Lumbosacral spondylosis without myelopathy Thyroid nodule- Primary Nontoxic uninodular goiter documented in this encounter [facility] HealthcareEvaluation note* Diagnosis Ruptured ear drum, left- [...] peripheral vascular disease 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- Primary Calcification of aortic valve Essential hypertension Unspecified essential hypertension Thyroid nodule Nontoxic uninodular goiter Obstructive sleep apnea syndrome- Primary Obstructive sleep apnea (adult) (pediatric) PAH (pulmonary artery hypertension) (HCC) Other chronic pulmonary heart diseases 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- Primary Elevated glucose level Essential hypertension Unspecified essential hypertension Encounter for screening mammogram for malignant neoplasm of breast Other chest pain Disease of thyroid gland Unspecified disorder of thyroid Obesity (BMI 30-39.9) Posterior left knee pain Thyroid nodule- Primary Nontoxic uninodular goiter 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 Pre-diabetes Other abnormal glucose Obesity (BMI 30-39.9) Diarrhea, unspecified type Encounter for subsequent annual wellness visit (AWV) in Medicare patient- Primary Tobacco dependence Tobacco use disorder Pre-diabetes Other abnormal glucose Obesity (BMI 30-39.9) Age-related osteoporosis without current pathological fracture 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 Essential hypertension Unspecified essential hypertension Essential hypertension- Primary Unspecified essential hypertension Systemic lupus erythematosus, unspecified (HCC) 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 Chronic kidney disease, stage 3a (CMS-HCC) 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 Secondary pulmonary arterial hypertension (HCC) 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 PAH (pulmonary artery hypertension) (HCC) Other chronic pulmonary heart diseases Obesity (BMI 30-39.9) Pre-diabetes Other abnormal glucose Tobacco dependence Tobacco use disorder Multiple lung nodules on CT Family history of cancer Family history of unspecified malignant neoplasm Diarrhea, unspecified type- Primary Chronic kidney disease, stage 3b (CMS-HCC) 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 Essential hypertension Unspecified [...] disorder Lumbar spondylosis Lumbosacral spondylosis without myelopathy Acute glossitis- Primary documented in this encounter [facility] HealthcareHistory general [...] AND PLATE PLACEMENT Hospitalization History SEE ABOVE [facility] Other History general Narrative - Reported* Type [...] AND PLATE PLACEMENT Hospitalization History SEE ABOVE [facility] Other Reason for referral (narrative)* Consultation (Routine) - Pending Review Specialty Diagnoses / Procedures Referred By Sobia guallpa Referred To Contact Orthopaedic Surgery Diagnoses Posterior left knee pain Stephanie Dumont NP [address] [place] [address] Jr. Herson Avalos, [address] [place] [address] Referral ID Status Reason Start Date Expiration Date Visits Requested Visits Authorized [id number] Pending Review Specialty Services Required 04/04/2024 10/01/2024 1 1 Scheduling Instructions Pt requests dr avalos * Imaging (Routine) - Pending Review Specialty Diagnoses / Procedures Referred By Sobia guallpa Referred To Contact Diagnoses Essential hypertension (CMS/HCC) 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 (CMS/HCC) Other chest pain Procedures STRESS NUCLEAR MEDICINE LEXStephanie Grier, [employer] [address] [place] [address] [facility] [address] [place] [address] Referral ID Status Reason Start Date Expiration Date V isits Requested Visits Authorized [id number] Pending Review 04/04/2024 10/01/2024 3 3 [facility]No reason for referral information availablePrem[facility] [place] [facility] Work Phone: Reason for visit Narrative* [place] Prior Authorization (Routine) - Authorized Specialty Diagnoses / Procedures Referred By Sobia guallpa Referred To Contact Diagnoses 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) Rinku Ramsey MD [address] [place] [address] Phone: tel: fax: Rinku Ramsey MD [address] [place] [address] [place] [address] Phone: tel: fax: Referral ID Status Reason Start Date Expiration Date V isits Requested Visits Authorized [id number] Authorized 12/04/2024 12/04/2025 1 24 [facility] Narrative* Auth/Cert Specialty Diagnoses / Procedures Referred By Sobia guallpa Referred To Contact Diagnoses 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 [H72.02] Procedures VT TYMPANOPLASTY W/O MASTOIDEC 1ST/REVJ PROSTH TORP VT GRAFT EAR CRTLG AUTOGENOUS NOSE/EAR Left Side Transcanal Tympanoplasty; Ossiculoplasty; Cartilage Graft Left Side Transcanal Tympanoplasty; Ossiculoplasty; [place] [address] [place] [address] Phone: tel: fax: [facility] [place] [facility] [place] [address] fax: Referral ID Status Reason Start Date Expiration Date Visits Re quested Visits Authorized [id number] 1 1 [facility] Work Phone: Summary Purpose Family History No [...] Referral Specialty Diagnoses / Procedures Referred By Contsosa t Referred To Contact Radiology Diagnoses Calcification of aortic valve 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 (CMS/HCC) Procedures Echocardiogram 2D complete Stephanie Dumont NP [address] [place] [address] [facility] [address] [place] [address] Referral ID Status Reason Start Date Expiration Date Visits Requested Visits Authorized [id number] Incomplete Perform Procedure 02/26/2024 08/24/2024 1 1 Specialty Diagnoses / Procedures Referred By Contac t Referred To Contact Diagnoses Left leg pain Procedures NM bone 3 phase Blaise Alex, LISA [address] [place] [address] [facility] [address] [address] Referral ID Status Reason Start Date Expiration Date V isits Requested Visits Authorized [id number] Pending Review 04/09/2024 10/06/2024 4 4 Specialty Diagnoses / Procedures Referred By Contac t Referred To Contact Radiology Diagnoses Cholesteatoma of left ear Procedures CT internal auditory canals posterior [place] [address] [place] [address] Referral ID Status Reason Start Date Expiration Date Visits Requested Visits Authorized [id number] Pending Review Perform Procedure 11/14/2023 11/13/2024 1 1 Specialty Diagnoses / Procedures Referred By Sobia guallpa Referred To Contact Dermatology Diagnoses Skin lesion of right lower extremity Procedures CONSULT TO DERMATOLOGY Jayden Connelly, DELINQUENCY PREVENTION SOCIAL WORKER.EMERGENCY DEPARTMENT [address] [place] [address] [place] [address] Referral ID Status Reason Start Date Expiration Date Visits Requested Visits Authorized [id number] Ref Not Required PCP Requested Referral 08/04/2022 [...] section and content) DATE CREATED AUTHOR 01/02/2018 [facility] DATE CREATED AUTHOR AUTHOR'S ORGANIZ ATION 05/02/2024 [facility] DATE CREATED AUTHOR AUTHOR'S ORGANIZ ATION 07/21/2024 [facility] DATE CREATED AUTHOR AUTHOR'S ORGANIZ ATION 11/28/2024 [facility] DATE CREATED AUTHOR AUTHOR'S ORGANIZ ATION 12/03/2024 [facility] DATE CREATED AUTHOR AUTHOR'S ORGANIZ ATION 01/23/2025 [facility] DATE CREATED AUTHOR AUTHOR'S ORGANIZ ATION 03/25/2025 [facility] DATE CREATED AUTHOR AUTHOR'S ORGANIZ ATION 04/03/2025 [facility] EPIC DATE CREATED AUTHOR AUTHOR'S JA SOTO 04/15/2025 [facility] Source Comments (unrecognize d section and content) In the event this informatio n is protected by the Federal Confidentiality of Alcohol and Drug Abuse Patient Records regulations: The Federal rules restrict any use of the information to criminally investigate or prosecute any alcohol or drug abuse patient.[facility] WestIn the event this information is protected by the Federal Confidentiality of Alcohol and Drug Abuse Patient Records regulations: The Federal rules restrict any use of the information to criminally investigate or prosecute any alcohol or drug abuse patient.[facility] WestIn the event this information is protected by the Federal Confidentiality of Alcohol and Drug Abuse Patient Records regulations: The Federal rules restrict any use of the information to criminally investigate or prosecute any alcohol or drug abuse patient.[facility] WestIn the event this information is protected by the Federal Confidentiality of Alcohol and Drug Abuse Patient Records regulations: The Federal rules restrict any use of the information to criminally investigate or prosecute any alcohol or drug abuse patient.[facility] WestIn the event this information is protected by the Federal Confidentiality of Alcohol and Drug Abuse Patient Records regulations: The Federal rules restrict any use of the information to criminally investigate or prosecute any alcohol or drug abuse patient.[facility] WestIn the event this information is protected by the Federal Confidentiality of Alcohol and Drug Abuse Patient Records regulations: The Federal rules restrict any use of the information to criminally investigate or prosecute any alcohol or drug abuse patient.[facility] WestIn the event this information is protected by the Federal Confidentiality of Alcohol and Drug Abuse Patient Records regulations: The Federal rules restrict any use of the information to criminally investigate or prosecute any alcohol or drug abuse patient.[facility] WestIn the event this information is protected by the Federal Confidentiality of Alcohol and Drug Abuse Patient Records regulations: The Federal rules restrict any use of the information to criminally investigate or prosecute any alcohol or drug abuse patient.[facility] WestIn the event this information is protected by the Federal Confidentiality of Alcohol and Drug Abuse Patient Records regulations: The Federal rules restrict any use of the information to criminally investigate or prosecute any alcohol or drug abuse patient.[facility] WestIn the event this information is protected by the Federal Confidentiality of Alcohol and Drug Abuse Patient Records regulations: The Federal rules restrict any use of the information to criminally investigate or prosecute any alcohol or drug abuse patient.[facility] WestIn the event this information is protected by the Federal Confidentiality of Alcohol and Drug Abuse Patient Records regulations: The Federal rules restrict any use of the information to criminally investigate or prosecute any alcohol or drug abuse patient.[facility] WestIn the event this information is protected by the Federal Confidentiality of Alcohol and Drug Abuse Patient Records regulations: The Federal rules restrict any use of the information to criminally investigate or prosecute any alcohol or drug abuse patient.[facility] WestIn the event this information is protected by the Federal Confidentiality of Alcohol and Drug Abuse Patient Records regulations: The Federal rules restrict any use of the information to criminally investigate or prosecute any alcohol or drug abuse patient.[facility] WestIn the event this information is protected by the Federal Confidentiality of Alcohol and Drug Abuse Patient Records regulations: The Federal rules restrict any use of the information to criminally investigate or prosecute any alcohol or drug abuse patient.[facility] WestIn the event this information is protected by the Federal Confidentiality of Alcohol and Drug Abuse Patient Records regulations: The Federal rules restrict any use of the information to criminally investigate or prosecute any alcohol or drug abuse patient.[facility] WestIn the event this information is protected by the Federal Confidentiality of Alcohol and Drug Abuse Patient Records regulations: The Federal rules restrict any use of the information to criminally investigate or prosecute any alcohol or drug abuse patient.[facility] WestIn the event this information is protected by the Federal Confidentiality of Alcohol and Drug Abuse Patient Records regulations: The Federal rules restrict any use of the information to criminally investigate or prosecute any alcohol or drug abuse patient.[facility] WestIn the event this information is protected by the Federal Confidentiality of Alcohol and Drug Abuse Patient Records regulations: The Federal rules restrict any use of the information to criminally investigate or prosecute any alcohol or drug abuse patient.[facility] WestIn the event this information is protected by the Federal Confidentiality of Alcohol and Drug Abuse Patient Records regulations: The Federal rules restrict any use of the information to criminally investigate or prosecute any alcohol or drug abuse patient.[facility] WestIn the event this information is protected by the Federal Confidentiality of Alcohol and Drug Abuse Patient Records regulations: The Federal rules restrict any use of the information to criminally investigate or prosecute any alcohol or drug abuse patient.[facility] WestIn the event this information is protected by the Federal Confidentiality of Alcohol and Drug Abuse Patient Records regulations: The Federal rules restrict any use of the information to criminally investigate or prosecute any alcohol or drug abuse patient.[facility] WestIn the event this information is protected by the Federal Confidentiality of Alcohol and Drug Abuse Patient Records regulations: The Federal rules restrict any use of the information to criminally investigate or prosecute any alcohol or drug abuse patient.[facility] WestIn the event this information is protected by the Federal Confidentiality of Alcohol and Drug Abuse Patient Records regulations: The Federal rules restrict any use of the information to criminally investigate or prosecute any alcohol or drug abuse patient.[facility] WestIn the event this information is protected by the Federal Confidentiality of Alcohol and Drug Abuse Patient Records regulations: The Federal rules restrict any use of the information to criminally investigate or prosecute any alcohol or drug abuse patient.[facility] WestIn the event this information is protected by the Federal Confidentiality of Alcohol and Drug Abuse Patient Records regulations: The Federal rules restrict any use of the information to criminally investigate or prosecute any alcohol or drug abuse patient.[facility] WestIn the event this information is protected by the Federal Confidentiality of Alcohol and Drug Abuse Patient Records regulations: The Federal rules restrict any use of the information to criminally investigate or prosecute any alcohol or drug abuse patient.[facility] WestIn the event this information is protected by the Federal Confidentiality of Alcohol and Drug Abuse Patient Records regulations: The Federal rules restrict any use of the information to criminally investigate or prosecute any alcohol or drug abuse patient.[facility] WestIn the event this information is protected by the Federal Confidentiality of Alcohol and Drug Abuse Patient Records regulations: The Federal rules restrict any use of the information to criminally investigate or prosecute any alcohol or drug abuse patient.[facility] WestIn the event this information is protected by the Federal Confidentiality of Alcohol and Drug Abuse Patient Records regulations: The Federal rules restrict any use of the information to criminally investigate or prosecute any alcohol or drug abuse patient.[facility] WestIn the event this information is protected by the Federal Confidentiality of Alcohol and Drug Abuse Patient Records regulations: The Federal rules restrict any use of the information to criminally investigate or prosecute any alcohol or drug abuse patient.[facility] WestIn the event this information is protected by the Federal Confidentiality of Alcohol and Drug Abuse Patient Records regulations: The Federal rules restrict any use of the information to criminally investigate or prosecute any alcohol or drug abuse patient.[facility] WestIn the event this information is protected by the Federal Confidentiality of Alcohol and Drug Abuse Patient Records regulations: The Federal rules restrict any use of the information to criminally investigate or prosecute any alcohol or drug abuse patient.[facility] WestIn the event this information is protected by the Federal Confidentiality of Alcohol and Drug Abuse Patient Records regulations: The Federal rules restrict any use of the information to criminally investigate or prosecute any alcohol or drug abuse patient.[facility] WestIn the event this information is protected by the Federal Confidentiality of Alcohol and Drug Abuse Patient Records regulations: The Federal rules restrict any use of the information to criminally investigate or prosecute any alcohol or drug abuse patient.[facility] WestIn the event this information is protected by the Federal Confidentiality of Alcohol and Drug Abuse Patient Records regulations: The Federal rules restrict any use of the information to criminally investigate or prosecute any alcohol or drug abuse patient.[facility] WestIn the event this information is protected by the Federal Confidentiality of Alcohol and Drug Abuse Patient Records regulations: The Federal rules restrict any use of the information to criminally investigate or prosecute any alcohol or drug abuse patient.[facility] WestIn the event this information is protected by the Federal Confidentiality of Alcohol and Drug Abuse Patient Records regulations: The Federal rules restrict any use of the information to criminally investigate or prosecute any alcohol or drug abuse patient.[facility] WestIn the event this information is protected by the Federal Confidentiality of Alcohol and Drug Abuse Patient Records regulations: The Federal rules restrict any use of the information to criminally investigate or prosecute any alcohol or drug abuse patient.[facility] WestIn the event this information is protected by the Federal Confidentiality of Alcohol and Drug Abuse Patient Records regulations: The Federal rules restrict any use of the information to criminally investigate or prosecute any alcohol or drug abuse patient.[facility] WestIn the event this information is protected by the Federal Confidentiality of Alcohol and Drug Abuse Patient Records regulations: The Federal rules restrict any use of the information to criminally investigate or prosecute any alcohol or drug abuse patient.[facility] WestIn the event this information is protected by the Federal Confidentiality of Alcohol and Drug Abuse Patient Records regulations: The Federal rules restrict any use of the information to criminally investigate or prosecute any alcohol or drug abuse patient.[facility] WestIn the event this information is protected by the Federal Confidentiality of Alcohol and Drug Abuse Patient Records regulations: The Federal rules restrict any use of the information to criminally investigate or prosecute any alcohol or drug abuse patient.[facility] WestIn the event this information is protected by the Federal Confidentiality of Alcohol and Drug Abuse Patient Records regulations: The Federal rules restrict any use of the information to criminally investigate or prosecute any alcohol or drug abuse patient.[facility] WestIn the event this information is protected by the Federal Confidentiality of Alcohol and Drug Abuse Patient Records regulations: The Federal rules restrict any use of the information to criminally investigate or prosecute any alcohol or drug abuse patient.[facility] WestIn the event this information is protected by the Federal Confidentiality of Alcohol and Drug Abuse Patient Records regulations: The Federal rules restrict any use of the information to criminally investigate or prosecute any alcohol or drug abuse patient.[facility] WestIn the event this information is protected by the Federal Confidentiality of Alcohol and Drug Abuse Patient Records regulations: The Federal rules restrict any use of the information to criminally investigate or prosecute any alcohol or drug abuse patient.[facility] WestIn the event this information is protected by the Federal Confidentiality of Alcohol and Drug Abuse Patient Records regulations: The Federal rules restrict any use of the information to criminally investigate or prosecute any alcohol or drug abuse patient.[facility] WestIn the event this information is protected by the Federal Confidentiality of Alcohol and Drug Abuse Patient Records regulations: The Federal rules restrict any use of the information to criminally investigate or prosecute any alcohol or drug abuse patient.[facility] WestIn the event this information is protected by the Federal Confidentiality of Alcohol and Drug Abuse Patient Records regulations: The Federal rules restrict any use of the information to criminally investigate or prosecute any alcohol or drug abuse patient.[facility] WestIn the event this information is protected by the Federal Confidentiality of Alcohol and Drug Abuse Patient Records regulations: The Federal rules restrict any use of the information to criminally investigate or prosecute any alcohol or drug abuse patient.[facility] WestIn the event this information is protected by the Federal Confidentiality of Alcohol and Drug Abuse Patient Records regulations: The Federal rules restrict any use of the information to criminally investigate or prosecute any alcohol or drug abuse patient.[facility] WestIn the event this information is protected by the Federal Confidentiality of Alcohol and Drug Abuse Patient Records regulations: The Federal rules restrict any use of the information to criminally investigate or prosecute any alcohol or drug abuse patient.[facility] WestIn the event this information is protected by the Federal Confidentiality of Alcohol and Drug Abuse Patient Records regulations: The Federal rules restrict any use of the information to criminally investigate or prosecute any alcohol or drug abuse patient.[facility] WestIn the event this information is protected by the Federal Confidentiality of Alcohol and Drug Abuse Patient Records regulations: The Federal rules restrict any use of the information to criminally investigate or prosecute any alcohol or drug abuse patient.[facility] [place] the event this information is protected by the Federal Confidentiality of Alcohol and Drug Abuse Patient Records regulations: The Federal rules restrict any use of the information to criminally investigate or prosecute any alcohol or drug abuse patient.[facility] [place] [facility] the event this information is protected by the Federal Confidentiality of Alcohol and Drug Abuse Patient Records regulations: The Federal rules restrict any use of the information to criminally investigate or prosecute any alcohol or drug abuse patient.[facility] [place] WestIn the event this information is protected by the Federal Confidentiality of Alcohol and Drug Abuse Patient Records regulations: The Federal rules restrict any use of the information to criminally investigate or prosecute any alcohol or drug abuse patient.[facility] [place] the event this information is protected by the Federal Confidentiality of Alcohol and Drug Abuse Patient Records regulations: The Federal rules restrict any use of the information to criminally investigate or prosecute any alcohol or drug abuse patient.[facility] [place] the event this information is protected by the Federal Confidentiality of Alcohol and Drug Abuse Patient Records regulations: The Federal rules restrict any use of the information to criminally investigate or prosecute any alcohol or drug abuse patient.[facility] [place] the event this information is protected by the Federal Confidentiality of Alcohol and Drug Abuse Patient Records regulations: The Federal rules restrict any use of the information to criminally investigate or prosecute any alcohol or drug abuse patient.[facility] [place] [facility] the event this information is protected by the Federal Confidentiality of Alcohol and Drug Abuse Patient Records regulations: The Federal rules restrict any use of the information to criminally investigate or prosecute any alcohol or drug abuse patient.[facility] [place] the event this information is protected by the Federal Confidentiality of Alcohol and Drug Abuse Patient Records regulations: The Federal rules restrict any use of the information to criminally investigate or prosecute any alcohol or drug abuse patient.[facility] [place] [facility]In the event this information is protected by the Federal Confidentiality of Alcohol and Drug Abuse Patient Records regulations: The Federal rules restrict any use of the information to criminally investigate or prosecute any alcohol or drug abuse patient.[facility] [place] the event this information is protected by the Federal Confidentiality of Alcohol and Drug Abuse Patient Records regulations: The Federal rules restrict any use of the information to criminally investigate or prosecute any alcohol or drug abuse patient.[facility] [place] the event this information is protected by the Federal Confidentiality of Alcohol and Drug Abuse Patient Records regulations: The Federal rules restrict any use of the information to criminally investigate or prosecute any alcohol or drug abuse patient.[facility] [place] the event this information is protected by the Federal Confidentiality of Alcohol and Drug Abuse Patient Records regulations: The Federal rules restrict any use of the information to criminally investigate or prosecute any alcohol or drug abuse patient.[facility] [place]In the event this information is protected by the Federal Confidentiality of Alcohol and Drug Abuse Patient Records regulations: The Federal rules restrict any use of the information to criminally investigate or prosecute any alcohol or drug abuse patient.[facility] [place]In the event this information is protected by the Federal Confidentiality of Alcohol and Drug Abuse Patient Records regulations: The Federal rules restrict any use of the information to criminally investigate or prosecute any alcohol or drug abuse patient.[facility] [place]In the event this information is protected by the Federal Confidentiality of Alcohol and Drug Abuse Patient Records regulations: The Federal rules restrict any use of the information to criminally investigate or prosecute any alcohol or drug abuse patient.[facility] [place] the event this information is protected by the Federal Confidentiality of Alcohol and Drug Abuse Patient Records regulations: The Federal rules restrict any use of the information to criminally investigate or prosecute any alcohol or drug abuse patient.[facility] [place] the event this information is protected by the Federal Confidentiality of Alcohol and Drug Abuse Patient Records regulations: The Federal rules restrict any use of the information to criminally investigate or prosecute any alcohol or drug abuse patient.[facility] [place]In the event this information is protected by the Federal Confidentiality of Alcohol and Drug Abuse Patient Records regulations: The Federal rules restrict any use of the information to criminally investigate or prosecute any alcohol or drug abuse patient.[facility] [place] WestIn the event this information is protected by the Federal Confidentiality of Alcohol and Drug Abuse Patient Records regulations: The Federal rules restrict any use of the information to criminally investigate or prosecute any alcohol or drug abuse patient.[facility] [place]In the event this information is protected by the Federal Confidentiality of Alcohol and Drug Abuse Patient Records regulations: The Federal rules restrict any use of the information to criminally investigate or prosecute any alcohol or drug abuse patient.[facility] [place] the event this information is protected by the Federal Confidentiality of Alcohol and Drug Abuse Patient Records regulations: The Federal rules restrict any use of the information to criminally investigate or prosecute any alcohol or drug abuse patient.[facility] [place] the event this information is protected by the Federal Confidentiality of Alcohol and Drug Abuse Patient Records regulations: The Federal rules restrict any use of the information to criminally investigate or prosecute any alcohol or drug abuse patient.[facility] [place]In the event this information is protected by the Federal Confidentiality of Alcohol and Drug Abuse Patient Records regulations: The Federal rules restrict any use of the information to criminally investigate or prosecute any alcohol or drug abuse patient.[facility] [place]In the event this information is protected by the Federal Confidentiality of Alcohol and Drug Abuse Patient Records regulations: The Federal rules restrict any use of the information to criminally investigate or prosecute any alcohol or drug abuse patient.[facility] [place]In the event this information is protected by the Federal Confidentiality of Alcohol and Drug Abuse Patient Records regulations: The Federal rules restrict any use of the information to criminally investigate or prosecute any alcohol or drug abuse patient.[facility] [place] Reason for Visit (unrecogniz ed section and [...] [place] [address] [place] [address] Referral ID Status Reason Start Date Expiration Date Visits Requested Visits Authorized [id number] Pending Review Perform Procedure 11/14/2023 11/13/2024 1 1 Reason Comments Hearing Loss Reason Comments Chronic ITP 6 week follow up Reason Comments Call Request Specialty Diagnoses / [facility] Diagnoses 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 [H71.92] Procedures VT TMPP MASTOIDECT NTC/RCNSTED CANAL WALL OCR VT GRAFT EAR CRTLG AUTOGENOUS NOSE/EAR VT TMPP MASTOIDECTOMY W/OSSICULAR CHAIN RECNSTJ Left Side Tympanomastoidectomy Canal Wall Up; Ossiculoplasty; [place] [address] [place] [address] [facility] [address] [place] [address] Referral ID Status Reason Start Date Expiration Date Visits Re quested Visits Authorized [id number] 1 1 Reason Onset Date Comments Refill Request 01/25/2024 Reason Onset Date Comments Refill Request 04/02/2024 Reason Comments Thyroid fine needle biopsy at [facility]/ITP Reason Comments Pain Specialty Diagnoses / Procedures Referred By Contac t Referred To Contact Orthopaedic Surgery Diagnoses Posterior left knee pain Stephanie Dumont, JORDI [address] [place] [address] Jr. Herson Avalos DO [address] [place] [address] Referral ID Status Reason Start Date Expiration Date V isits Requested Visits Authorized [id number] Closed Specialty Services Required 04/04/2024 10/01/2024 1 1 Reason Onset Date Comments Med Refill 04/10/2024 Reason Comments Thyroid Nodule FNA 04/16/24 [facility] Specialty Diagnoses / Procedures [facility] To Contact Otolaryngology Diagnoses Thyroid nodule (CMS/HCC) Procedures [place] OFFICE/OUTPATIENT NEW HIGH MDM 60 MINUTES Stephanie Dumont NP [address] [address] Phone: tel: fax: Mar Mayo MD [address] [place] [address] [place] [address] Phone: tel: fax: Referral ID Status Reason Start Date Expiration Date V isits Requested Visits Authorized [id number] Closed Specialty Services Required 04/25/2024 10/22/2024 1 1 Reason Comments Chronic ITP High Blood Sugar Reason Comments Post-op Reason Comments Anemia Reason Comments Medication Assistance Program Medication Authorization [place] [facility] [place] Reason Comments Med Refill Reason Comments Follow-up Had hearing test Reason Comments Hypertension Reason Onset Date Comments Med Refill 01/01/2025 Reason Comments Hospital Follow-up Reason Comments Thyroid Nodule 6 month ultrasound TB Reason Onset Date Comments insurance won't cover rx 04/02/2025 Care Teams (unrecognized sec tion and content) Team Status: Active Member Role Status Dates NON STAFF Primary Care Provider Active Team Status: Inactive Member Role Status Dates Gilson Arriola MD Attending Provider Active Start : August 21, 2024 End: August 21, 2024 NON STAFF Primary Care Provider Active Start: August 21, 2024 End: August 21, 2024 Carriage Dogger Relationship Specialty Start Date End Date Paloma Saldaña Tripp [facility] [place] [address] PCP - General Family Practice 05/26/21 05/31/21 Team Status: Inactive Member Role Status Dates Gilson Arriola MD Attending Provider Active NON STAFF Primary Care Provider Active Carriage Dogger Relationship Specialty Start Date End Date Shaikh Biswas MD [address] [place] [address] PCP - General Primary Care 09/15/22 Carriage Dogger Relationship Specialty Start Date End Date Shaikh Biswas MD [address] [place] [address] PCP - General Primary Care 09/15/22 Carriage Dogger Relationship Specialty Start Date End Date Shaikh Biswas MD [address] [place] [address] PCP - General Primary Care 09/15/22 Carriage Dogger Relationship Specialty Start Date End Date Shaikh Biswas MD [address] [place] [address] PCP - General Primary Care 09/15/22 Carriage Dogger Relationship Specialty Start Date End Date Stephanie Dumont [address] [place] [address] PCP - General 04/20/23 Carriage Dogger Relationship Specialty Start Date End Date Stephanie Dumont [address] [place] [address] PCP - General 04/20/23 Carriage Dogger Relationship Specialty Start Date End Date Stephanie Dumont [address] [place] [address] PCP - General 04/20/23 Carriage Dogger Relationship Specialty Start Date End Date Wilfred Polanco MD [address] [place] [address] PCP - General Family Medicine 07/17/23 Stephanie Dumont NP [address] [place] [address] Nurse Practitioner Family Medicine 04/09/23 Carriage Dogger Relationship Specialty Start Date End Date Wilfred Polanco MD [address] [place] [address] PCP - General Family Medicine 07/17/23 Stephanie Dumont NP [address] [place] [address] Nurse Practitioner Family Medicine 04/09/23 Carriage Dogger Relationship Specialty Start Date End Date Wilfred Polanco MD [address] [place] [address] PCP - General Family Medicine 08/17/23 Stephanie Dumont NP [address] [place] [address] Nurse Practitioner Family Medicine 04/09/23 Carriage Dogger Relationship Specialty Start Date End Date Wilfred Polanco MD [address] [place] [address] PCP - General Family Medicine 08/17/23 Stephanie Dumont NP [address] [place] [address] Nurse Practitioner Family Medicine 04/09/23 Carriage Dogger Relationship Specialty Start Date End Date Wilfred Polanco MD [address] [place] [address] PCP - General Family Medicine 08/17/23 Stephanie Dumont NP [address] [place] [address] Nurse Practitioner Family Medicine 04/09/23 Carriage Dogger Relationship Specialty Start Date End Date Stephanie Dumont [address] [place] [address] PCP - General 04/20/23 Carriage Dogger Relationship Specialty Start Date End Date Stephanie Dumont [address] [place] [address] PCP - General 04/20/23 Carriage Dogger Relationship Specialty Start Date End Date Stephanie Dumont [address] [place] [address] PCP - General 04/20/23 Carriage Dogger Relationship Specialty Start Date End Date Stephanie Dumont [address] [place] [address] PCP - General 04/20/23 Carriage Dogger Relationship Specialty Start Date End Date Stephanie Dumont PCP - General 04/20/23 Carriage Dogger Relationship Specialty Start Date End Date Stephanie Dumont PCP - General 04/20/23 Carriage Dogger Relationship Specialty Start Date End Date Stephanie Dumont PCP - General 04/20/23 Carriage Dogger Relationship Specialty Start Date End Date Stephanie Dumont PCP - General 04/20/23 Carriage Dogger Relationship Specialty Start Date End Date Stephanie Dumont PCP - General 04/20/23 Carriage Dogger Relationship Specialty Start Date End Date Stephanie Dumont PCP - General 04/20/23 Carriage Dogger Relationship Specialty Start Date End Date Stephanie Dumont PCP - General 04/20/23 Carriage Dogger Relationship Specialty Start Date End Date Wilfred Polanco MD [address] [place] [address] PCP - General Family Medicine 08/17/23 Stephanie Dumont NP [address] [place] [address] PCP [facility] 10/09/23 12/07/70 Stephanie Dumont NP [address] [place] [address] Nurse Practitioner Family Medicine 04/09/23 Carriage Dogger Relationship Specialty Start Date End Date Wilfred Polanco MD [address] [place] [address] PCP - General [facility] 08/17/23 Stephanie Dumont NP [address] [place] [address] [facility] 10/09/23 12/07/70 Stephanie Dumont NP [address] [place] [address] Nurse Practitioner [facility] 04/09/23 Team Status: Active Member Role Status Dates Stephanie Dumont Primary Care Provider Active Sta rt: February 12, 2024 Jose Jarrett DO Attending Provider Active Sta rt: February 12, 2024 Team Status: Inactive Member Role Status Dates Simon Zuniga MD Attending Provider Active Start: April 16, 2024 End: April 16, 2024 Carriage Dogger Relationship Specialty Start Date End Date Stephanie Dumont [facility] General 04/20/23 Carriage Dogger Relationship Specialty Start Date End Date Wilfred Polanco MD [address] [place] [address] PCP General Family Medicine 08/17/23 Stephanie Dumont NP [address] [place] [address] [facility] 10/09/23 12/07/70 Stephanie Dumont NP [address] [place] [address] Nurse Practitioner Family Medicine 04/09/23 Carriage Dogger Relationship Specialty Start Date End Date Stephanie Dumont NP [address] [place] [address] [facility] 10/09/23 12/07/70 Unallocated, Israel Miller MD [address] [place] [address] PCP - General Family Medicine 04/24/24 Stephanie Dumont NP [address] [place] [address] Nurse Practitioner Family Medicine 04/09/23 Carriage Dogger Relationship Specialty Start Date End Date Stephanie Dumont NP [address] [place] [address] [facility] 10/09/23 12/07/70 Stephanie Dumont NP [address] [place] [address] Nurse Practitioner Family Medicine 04/09/23 Carriage Dogger Relationship Specialty Start Date End Date Stephanie Dumont NP [address] [place] [address] [facility] 10/09/23 12/07/70 Wilfred Polanco MD [address] [place] [address] PCP - General Family Medicine 05/13/24 Stephanie Dumont NP [address] [place] [address] Nurse Practitioner Family Medicine 04/09/23 Carriage Dogger Relationship Specialty Start Date End Date Stephanie Dumont NP [address] [place] [address] PCP - [facility] 10/09/23 12/07/70 Wilfred Polanco MD [address] [place] [address] PCP - General Family Medicine 05/13/24 Stephanie Dumont NP [address] [place] [address] Nurse Practitioner Family Medicine 04/09/23 Carriage Dogger Relationship Specialty Start Date End Date Stephanie Dumont NP [address] [place] [address] PCP - [facility] 10/09/23 12/07/70 Wilfred Polanco MD [address] [place] [address] PCP - General Family Medicine 05/13/24 Stephanie Dumont NP [address] [place] [address] Nurse Practitioner Family Medicine 04/09/23 Carriage Dogger Relationship Specialty Start Date End Date Stephanie Dumont NP [address] [place] [address] PCP - [facility] 10/09/23 12/07/70 Wilfred Polanco MD [address] [place] [address] PCP - General Family Medicine 05/13/24 Stephanie Dumont NP [address] [place] [address] Nurse Practitioner Family Medicine 04/09/23 Carriage Dogger Relationship Specialty Start Date End Date Stephanie Dumont NP [address] [place] [address] PCP - [facility] 10/09/23 12/07/70 Wilfred Polanco MD [address] [place] [address] PCP - General Family Medicine 05/13/24 Stephanie Dumont NP [address] [place] [address] Nurse Practitioner Family Medicine 04/09/23 Carriage Dogger Relationship Specialty Start Date End Date Stephanie Dumont NP [address] [place] [address] PCP - [facility] 10/09/23 12/07/70 Wilfred Polanco MD [address] [place] [address] PCP - General Family Medicine 05/13/24 Stephanie Dumont NP [address] [place] [address] Nurse Practitioner Family Medicine 04/09/23 Carriage Dogger Relationship Specialty Start Date End Date Stephanie Dumont NP [address] [place] [address] PCP - [facility] 10/09/23 12/07/70 Wilfred Polanco MD [address] [place] [address] PCP - General Family Medicine 05/13/24 Stephanie Dumont NP [address] [place] [address] Nurse Practitioner Family Medicine 04/09/23 Carriage Dogger Relationship Specialty Start Date End Date Stephanie Dumont PCP - General 04/20/23 Carriage Dogger Relationship Specialty Start Date End Date Wilfred Polanco MD [address] [place] [address] PCP - General Family Medicine 08/17/23 Stephanie Dumont NP [address] [place] [address] PCP - [facility] 10/09/23 12/07/70 Stephanie Dumont NP [address] [place] [address] Nurse Practitioner Family Medicine 04/09/23 Carriage Dogger Relationship Specialty Start Date End Date Wilfred Polanco MD [address] [place] [address] PCP - General Family Medicine 08/17/23 Stephanie Dumont NP [address] [place] [address] PCP - [facility] 10/09/23 12/07/70 Stephanie Dumont NP [address] [place] [address] Nurse Practitioner Family Medicine 04/09/23 Carriage Dogger Relationship Specialty Start Date End Date Wilfred Polanco MD [address] [place] [address] PCP - General Family Medicine 08/17/23 Stephanie Dumont NP [address] [place] [address] PCP - [facility] 10/09/23 12/07/70 Stephanie Dumont NP [address] [place] [address] Nurse Practitioner Family Medicine 04/09/23 Carriage Dogger Relationship Specialty Start Date End Date Wilfred Polanco MD [address] [place] [address] PCP - General Family Medicine 08/17/23 Stephanie Dumont NP [address] [place] [address] PCP - [facility] 10/09/23 12/07/70 Stephanie Dumont NP [address] [place] [address] Nurse Practitioner Family Medicine 04/09/23 Carriage Dogger Relationship Specialty Start Date End Date Wilfred Polanco MD [address] [place] [address] PCP - General Family Medicine 08/17/23 Stephanie Dumont NP [address] [place] [address] [facility] 10/09/23 12/07/70 Stephanie Dumont NP [address] [place] [address] Nurse Practitioner Family Medicine 04/09/23 Carriage Dogger Relationship Specialty Start Date End Date Wilfred Polanco MD [address] [place] [address] PCP - General Family Medicine 08/17/23 Stephanie Dumont NP [address] [place] [address] PCP [facility] 10/09/23 12/07/70 Stephanie Dumont NP [address] [place] [address] Nurse Practitioner Family Medicine 04/09/23 Carriage Dogger Relationship Specialty Start Date End Date Wilfred Polanco MD [address] [place] [address] PCP - General Family Medicine 08/17/23 Stephanie Dumont NP [address] [place] [address] PCP - [facility] 10/09/23 12/07/70 Stephanie Dumont NP [address] [place] [address] Nurse Practitioner Family Medicine 04/09/23 Carriage Dogger Relationship Specialty Start Date End Date Wilfred Polanco MD [address] [place] [address] PCP - General Family Medicine 08/17/23 Stephanie Dumont NP [address] [place] [address] PCP - [facility] 10/09/23 12/07/70 Stephanie Dumont NP [address] [place] [address] Nurse Practitioner Family Medicine 04/09/23 Carriage Dogger Relationship Specialty Start Date End Date Stephanie Dumont PCP - General 04/20/23 Carriage Dogger Relationship Specialty Start Date End Date Stephanie Dumont PCP - General 04/20/23 Carriage Dogger Relationship Specialty Start Date End Date Stephanie Dumont NP [address] [place] [address] PCP - [facility] 10/09/23 12/07/70 Wilfred Polanco MD [address] [place] [address] PCP - General Family Medicine 05/13/24 Stephanie Dumont NP [address] [place] [address] Nurse Practitioner Family Medicine 04/09/23 Carriage Dogger Relationship Specialty Start Date End Date Stephanie Dumont NP [address] [place] [address] [facility] 10/09/23 12/07/70 Wilfred Polanco MD [address] [place] [address] PCP - General Family Medicine 05/13/24 Stephanie Dumont NP [address] [place] [address] Nurse Practitioner Family Medicine 04/09/23 Carriage Dogger Relationship Specialty Start Date End Date Stephanie Dumont PCP - General 04/20/23 Carriage Dogger Relationship Specialty Start Date End Date Stephanie Dumont NP [address] [place] [address] [facility] 10/09/23 12/07/70 Wilfred Polanco MD [address] [place] [address] PCP - General Family Medicine 05/13/24 Stephnaie Dumont NP [address] [place] [address] Nurse Practitioner Family Medicine 04/09/23 Carriage Dogger Relationship Specialty Start Date End Date Stephanie Dumont NP [address] [place] [address] PCP - [facility] 10/09/23 12/07/70 Wilfred Polanco MD [address] [place] [address] PCP - General Family Medicine 05/13/24 Stephanie Dumont NP [address] [place] [address] Nurse Practitioner Family Medicine 04/09/23 Carriage Dogger Relationship Specialty Start Date End Date Tim Stephanie PCP - General 04/20/23 Carriage Dogger Relationship Specialty Start Date [facility] - [facility] 04/20/23 Carriage Dogger Relationship Specialty Start Date End Date Stephanie Dumont PCP - General 04/20/23 Carriage Dogger Relationship Specialty Start Date End [facility] - General 04/20/23 Carriage Dogger Relationship Specialty Start Date End Date [facility] - General 04/20/23 Carriage Dogger Relationship Specialty Start Date End Date Stephanie Dumont NP [address] [place] [address] PCP - [facility] 10/09/23 12/07/70 Wilfred Polanco MD [address] [place] [address] PCP - General Family Medicine 05/13/24 Stephanie Dumont NP [address] [place] [address] Nurse Practitioner Family Medicine 04/09/23 Carriage Dogger Relationship Specialty Start Date End Date Stephanie Dumont PCP - General 04/20/23 Carriage Dogger Relationship Specialty Start Date End Date Stephanie Dumont NP [address] [place] [address] PCP - [facility] 10/09/23 12/07/70 Wilfred Polanco MD [address] [place] [address] PCP - General Family Medicine 05/13/24 Stephanie Dumont NP [address] [place] [address] Nurse Practitioner Family Medicine 04/09/23 Carriage Dogger Relationship Specialty Start Date End Date Stephanie Dumont NP [address] [place] [address] PCP - [facility] 10/09/23 12/07/70 Wilfred Polanco MD [address] [place] [address] PCP - General Family Medicine 05/13/24 Stephanie Dumont NP [address] [place] [address] Nurse Practitioner Family Medicine 04/09/23 Carriage Dogger Relationship Specialty Start Date End Date Stephanie Dumont NP [address] [place] [address] PCP - [facility] 10/09/23 12/07/70 Wilfred Polanco MD [address] [place] [address] PCP - General Family Medicine 05/13/24 Stephanie Dumont NP [address] [place] [address] Nurse Practitioner Family Medicine 04/09/23 Carriage Dogger Relationship Specialty Start Date End Date Stephanie Dumont NP [address] [place] [address] PCP [facility] 10/09/23 12/07/70 Wilfred Polanco MD [address] [place] [address] PCP - General Family Medicine 05/13/24 Stephanie Dumont NP [address] [place] [address] Nurse Practitioner Family Medicine 04/09/23 Carriage Dogger Relationship Specialty Start Date End Date Stephanie Dumont NP [address] [place] [address] PCP [facility] 10/09/23 12/07/70 Wilfred Polanco MD [address] [place] [address] PCP - General Family Medicine 05/13/24 Stephanie Dumont NP [address] [place] [address] Nurse Practitioner Family Medicine 04/09/23 Carriage Dogger Relationship Specialty Start Date End Date Stephanie Dumont PCP - General 04/20/23 Carriage Dogger Relationship Specialty Start Date End Date Stephanie Dumont NP [address] [place] [address] [facility] 10/09/23 12/07/70 Wilfred Polanco MD [address] [place] [address] PCP - General Family Medicine 05/13/24 Stephanie Dumont NP [address] [place] [address] Nurse Practitioner Family Medicine 04/09/23 Carriage Dogger Relationship Specialty Start Date End Date Stephanie Dumont NP [address] [place] [address] [facility] 10/09/23 12/07/70 Wilfred Polanco MD [address] [place] [address] PCP - General Family Medicine 05/13/24 Stephanie Dumont NP [address] [place] [address] Nurse Practitioner Family Medicine 04/09/23 Carriage Dogger Relationship Specialty Start Date End Date Stephanie Dumont NP [address] [place] [address] PCP [facility] 10/09/23 12/07/70 Wilfred Polanco MD [address] [place] [address] PCP - General Family Medicine 05/13/24 Stephanie Dumont NP [address] [place] [address] Nurse Practitioner Family Medicine 04/09/23 Carriage Dogger Relationship Specialty Start Date End Date Stephanie Dumont NP [address] [place] [address] [facility] 10/09/23 12/07/70 Wilfred Polanco MD [address] [place] [address] PCP - General Family Medicine 05/13/24 Stephanie Dumont NP [address] [place] [address] Nurse Practitioner Family Medicine 04/09/23 Carriage Dogger Relationship Specialty Start Date End Date Stephanie Dumont NP [address] [place] [address] PCP - [facility] 10/09/23 12/07/70 Wilfred Polanco MD [address] [place] [address] PCP - General Family Medicine 05/13/24 Stephanie Dumont NP [address] [place] [address] Nurse Practitioner Family Medicine 04/09/23 Carriage Dogger Relationship Specialty Start Date End Date Stephanie Dumont PCP - General 04/20/23 Carriage Dogger Relationship Specialty Start Date End Date Stephanie Dumont NP [address] [place] [address] [facility] 10/09/23 12/07/70 Wilfred Polanco MD [address] [place] [address] PCP - General Family Medicine 05/13/24 Stephanie Dumnot NP [address] [place] [address] Nurse Practitioner Family Medicine 04/09/23 Team Status: Active Member Role Status Dates Stephanie Dumont Primary Care Provider Active Team Status: Inactive Member Role Status Dates Gilson Arriola MD Attending Provider Active Start : January 27, 2025 End: January 27, 2025 Stephanie Dumont Primary Care Provider Active Sta rt: January 27, 2025 End: January 27, 2025 Carriage Dogger Relationship Specialty Start Date End Date Stephanie Dumont PCP - General 04/20/23 Carriage Dogger Relationship Specialty Start Date End Date Stephanie Dumont PCP - General 04/20/23 Carriage Dogger Relationship Specialty Start Date End Date Stephanie Dumont, [employer]-EMERGENCY DEPARTMENT [address] [place] [address] PCP - General 11/29/24 Rinku Ramsey MD [address] [place] [phone] Referring Physician Hematology and Oncology 11/29/24 Carriage Dogger Relationship Specialty Start Date End Date Stephanie Dumont PCP - General 04/20/23 Team Status: Inactive Member Role Status Dates Stephanie Dumont Primary Care Provider Active Sta rt: March 13, 2025 End: March 13, 2025 Stephanie Dumont Attending Provider Active Start: March 13, 2025 End: March 13, 2025 Carriage Dogger Relationship Specialty Start Date End Date Stephanie Dumont PCP - General 04/20/23 Carriage Dogger Relationship Specialty Start Date End Date Stephanie Dumont NP [address] [place] [phone] PCP - [facility] 10/09/23 12/07/70 Wilfred Polanco MD [address] [place] [address] PCP - General Family Medicine 05/13/24 Stephanie Dumont NP Nurse Practitioner Family Medicine 04/09/23 Carriage Dogger Relationship Specialty Start Date End Date Stephanie Dumont NP [address] [place] [address] PCP - [facility] 10/09/23 12/07/70 Wilfred Polanco MD [address] [place] [address] PCP - General Family Medicine 03/27/25 Stephanie Dumont NP [address] [place] [address] Nurse Practitioner Family Medicine 03/27/25 Carriage Dogger Relationship Specialty Start Date End Date Stephanie Dumont NP [address] [place] [address] PCP - [facility] 10/09/23 12/07/70 Wilfred Polanco MD [address] [place] [address] PCP - General Family Medicine 03/27/25 Stephanie Dumont NP [address] [place] [address] Nurse Practitioner Family Medicine 03/27/25 Carriage Dogger Relationship Specialty Start Date End Date Stephanie Dumont NP [address] [place] [address] PCP - [facility] 10/09/23 12/07/70 Wilfred Polanco MD [address] [place] [address] PCP - General Family Medicine 03/27/25 Stephanie Dumont NP [address] [place] [address] Nurse Practitioner Family Medicine 03/27/25 Goals (unrecognized section and content) Goals may [...] BE BASED ON THE PRIMARY CLINICAL RECORDS. [employer] [facility]. provides no warranty or guarantee of the accuracy or completeness of information in this document.
[2025-04-23 12:17] LABS: Hematocrit 35.3 % (36.0-48.0); Hemoglobin 11.2 g/dL (12.0-16.0); Mean Corpuscular HGB Conc 31.7 g/dL (29.9-35.2); Mean Corpuscular Hemoglobin 31.7 pg (26.7-34.0); Mean Corpuscular Volume 100.0 fL (81.0-99.0); Platelet Count 168 10^3/uL (150-450); Red Blood Count 3.53 10^6/uL (4.20-5.40); White Blood Count 5.1 10^3/uL (4.0-11.0)
[2025-04-23 12:32] LABS: Glucose Urine UA NEGATIVE (NEGATIVE)
[2025-04-23 12:40] LABS: Protein Creatinine Ratio Urine 0.18; Total Protein Urine Random 18.9 mg/dL (<=11.9)
[2025-04-23 12:43] LABS: Cast Seen? NONE SEEN #/LPF (NONE SEEN); Crystals Seen? None Seen #/HPF (None Seen)
[2025-04-23 12:58] LABS: Albumin Level 3.3 g/dL (3.4-5.0); Anion Gap 12.0; Blood Urea Nitrogen 28.0 mg/dL (7.0-18.0); Calcium 9.1 mg/dL (8.5-10.1); Carbon Dioxide 28.5 mmol/L (21.0-32.0); Chloride 104 mmol/L (98-107); Estimated GFR (African America >60 (>=60 mL/min/1.73m^2); Estimated GFR (Non-African Ame 54 (>=60 mL/min/1.73m^2); Glucose 99 mg/dL (74-106); Magnesium 2.4 mg/dL (1.8-2.4); Potassium 4.5 mmol/L (3.5-5.1); Sodium 140 mmol/L (136-145); Uric Acid 6.0 mg/dL (2.6-6.0)
[2025-04-23 13:00] LABS: Iron 70.0 ug/dL (50.0-170.0); Percent Iron Saturation 20.3 %; Total Iron Binding Capacity 344.0 ug/dL (250.0-450.0)
[2025-04-23 13:21] LABS: Ferritin 71.0 ng/mL (8.0-252.0)
== END 2025-04-23 11:49 | disposition home or self-care (01) ==
LOC: LAB 11:56
PROVIDERS: PCP Nurse Practitioner; Visit Provider Internal Medicine
DX: G47.33 Obstructive sleep apnea (adult) (pediatric) (principal); E55.9 Vitamin D deficiency, unspecified; N28.1 Cyst of kidney, acquired; M32.9 Systemic lupus erythematosus, unspecified; E79.0 Hyperuricemia without signs of inflammatory arthritis and tophaceous disease; N18.9 Chronic kidney disease, unspecified
CPT/HCPCS: 36415; 80069; 81001; 82306; 82570; 82728; 83540; 83550; 83735; 83970; 84156; 84550; 85027

== ENCOUNTER 2025-05-29 13:16 | Outpatient (OUT) | payer MEDICARE, SELFPAY ==
--- NOTE | 2025-05-29 13:19 | MM_ITS ---
Patient Name: JASPREET LEO MR#: [id number] : 1950 Exam Date: 05/29/2025 Ordering Doctor: STEPH TOPETE CNP RADIOLOGY REPORT PROCEDURE: MM TOMOSYNTHESIS SCREENING BI COMPARISON: MM TOMOSYNTHESIS SCREENING BI, 05/17/2023. MM DIAGNOSTIC MAMMO UNILAT LT, 03/28/2017. MG STEREO LOC GUIDE BREAST LT, 03/28/2017. MM DIAGNOSTIC MAMMO UNILAT LT, 02/24/2017. INDICATIONS: Screening Calculator Name NCI Breast Cancer Risk Assessment Tool 5 Year Breast Cancer Risk 3.30% Lifetime Breast Cancer Risk 7.70% Personal Breast Cancer No Personal Ovarian Cancer No Treatments None Family Cancers Sister with breast cancer at age 66; Brother with nasal cancer at age 56; Father with bone cancer at age 62. LOCATION: [facility] BREAST COMPOSITION: The breasts are heterogeneously dense, which may obscure small masses. FINDINGS: DIAGNOSTIC CATEGORY 1--NEGATIVE. RIGHT BREAST: No significant suspicious finding. LEFT BREAST: No significant suspicious finding. RECOMMENDATIONS: ROUTINE MAMMOGRAM AND CLINICAL EVALUATION IN 12 MONTHS. Dictated by: Anastacio Cruz DO on 05/29/2025 at 15:28 Approved by: Anastacio Cruz DO on 05/29/2025 at 15:28
--- OUTSIDE RECORDS SUMMARY | 2025-05-29 13:25 | XMS_ITS | CCD ---
Author Organization [facility] Care Team Providers Care Recording Studio Set Up Worker Name Role Phone COTY WRIGHT Unavailable Unavailable COTY WRIGHT Unavailable Unavailable VANCE SCHERER Unavailable Unavailable VANCE SCHERER Unavailable Unavailable Unavailable Primary Care Provider Unavailaudrey e Paloma Saldaña Primary Care Provider Gilson Arriola Unavailable Unavailable Primary Care Provider Unavailabl e Unavailable Primary Care Provider UnavailMD Gilson Galvez Attending Provider NON STAFF Primary Care Provider Unavailabl e True JAIMES, Primary Care Provider [phone] Aichrichi, Stephanie Primary Care Provider [phone] Aichholruben STRAP CUTTING MACHINE OPERATOR, Stephanie Unavailable Wilfred Polanco MD Primary Care Provider Wilfred Polanco MD Primary Care Provider [phone] Unavailable Primary Care Provider Unavailabl e Aichholruben, Stephanie Primary Care Provider Aichholruben, Stephanie Primary Care Provider Unavailabl e Aichholz STRAP CUTTING MACHINE OPERATOR, Stephanie Unavailable Aichholruben STRAP CUTTING MACHINE OPERATOR, Stephanie Unavailable MD Tha Salguero Attending Provider [phone] Unallocated MD, Noms Provider Primary Care Provi gabriela Tha Salguero Attending Unavailable Tha Salguero Admitting Unavailable Gilson Arriola Attending Unavailable Gilson Arriola Admitting Unavailable Wilfred Polanco MD Primary Care Provider DOUG MORRELL Referring Unavailable DOUG MORRELL Attending Unavailable HERSON AVALOS Referring Unavailable MASSIEL BALLARD Attending Unavailable RODNEY GUILLEN Attending Unavailable Unavailable Primary Care Provider UnavailEMANI Aguirre Attending UnavailSUSANNA Aguila Attending Unavailable SUSANNA GRAF Attending Unavailable TIM, STEPHANIE Negrete Referring Unavailable AICHHOLZ, STEPHANIE J Primary Care Unavailable AICHHOLZ, STEPHANIE J Referring Unavailable AICHHOLZ, STEPHANIE J Primary Care Unavailable BLAISE ALEX Referring Unavailable AICHHOLZ, STEPHANIE J Primary Care Unavailable AICHHOLZ, STEPHNAIE J Referring Unavailable AICHHOLZ, STEPHANIE J Primary [...] Care Unavailable Gilson Arriola MD Attending Provider [phone] Stephanie Dumont Primary Care Provider Rinku Dupree MD Unavailable Tim DEVELOPING MACHINE TENDER-Stephanie CHOI Primary Care Provider Stephanie Dumont Attending Provider Tim STRAP CUTTING MACHINE OPERATOR, Stephanie Unavailable Aichholz STRAP CUTTING MACHINE OPERATOR, Stephanie Unavailable Sherri JAIMES, Wilfred Primary Care Provider SUSANNA GRAF Admitting Unavailable SUSANNA GRAF Attending Unavailable AICHHOLZ, STEPHANIE OPAL Primary Care Unavailable Sherri JAIMES, Wilfred Primary Care Provider Aichholz STRAP CUTTING MACHINE OPERATOR, Stephanie Unavailable Aichholz STRAP CUTTING MACHINE OPERATOR, Stephanie Unavailable Sherri JAIMES, Wilfred Primary Care Provider Aichholz STRAP CUTTING MACHINE OPERATOR, Stephanie Unavailable Aichholz STRAP CUTTING MACHINE OPERATOR-C, Stephanie J Primary Care Provider Aichholz STRAP CUTTING MACHINE OPERATOR-C, Stephanie J Attending Provider AICHHOLZ, STEPHANIE Attending Unavailable TIMMIS, MAR H Attending Unavailable AICHHOLZ, STEPHANIE Attending Unavailable AICHHOLZ, STEPHANIE Attending Unavailable AICHHOLZ, STEPHANIE Attending Unavailable TIMMIS, MAR H Attending Unavailable JR. DANUTA, HERSON Ramires Attending Unavaila katie AVALOS JR., HERSON Ramires Referring Unavaila ble AICHHOLZ, STEPHANIE Attending Unavailable TIMMIS, MAR H Attending Unavailable AICHHOLZ, STEPHANIE Referring Unavailable TIMMIS, MAR H Attending Unavailable Aichholz STRAP CUTTING MACHINE OPERATOR-C, Stephanie J Primary Care Provider Gilson Arriola MD Attending Provider Aichholz STRAP CUTTING MACHINE OPERATOR, Stephanie Unavailable Sherri JAIMES, Wilfred Primary Care Provider Sherri JAIMES, Wilfred Primary Care Provider Sherri JAIMES, Wilfred Primary Care Provider Blaise Rivera MD Attending Provider [phone] JAYDEN CONNELLY Referring Unavailable ABDAVID, RINKU Referring Unavailable LI PITTS Attending Unavailable ROXY, RINKU Referring Unavailable ABHYANKAR, RINKU Referring Unavailable JAYDEN CONNELLY Referring Unavailable GODWIN, JAYDEN Referring Unavailable ABHYANKAR, RINKU Referring Unavailable ABHYANKAR, RINKU Referring Unavailable ABHYANKAR, RINKU Referring Unavailable ABHYANKAR, RINKU Referring Unavailable ABHYANKAR, RINKU Referring Unavailable ABHYANKAR, RINKU Referring Unavailable ABHYANKAR, RINKU Referring Unavailable JAYDEN CONNELLY Attending Unavailable ABHYANKAR, RINKU Referring Unavailable ABHYANKAR, RINKU Referring Unavailable GODWIN, JAYDEN Referring Unavailable ABHYANKAR, RINKU Referring Unavailable ABHYANKAR, RINKU Referring Unavailable ABHYANKAR, RINKU Referring Unavailable ABHYANKAR, RINKU Referring Unavailable GODWIN, JAYDEN Attending Unavailable ABHYANKAR, RINKU Referring Unavailable ABHYANKAR, RINKU Referring Unavailable ABHYANKAR, RINKU Referring Unavailable GODWIN, JAYDEN Attending Unavailable ABHYANKAR, RINKU Referring Unavailable ABHYANKAR, RINKU Referring Unavailable ABHYANKAR, RINKU Attending Unavailable ABHYANKAR, RINKU Referring Unavailable ABHYANKAR, RINKU Referring Unavailable ABHYANKAR, RINKU Referring Unavailable GODWIN, JAYDEN Attending Unavailable GODWIN, JAYDEN Referring Unavailable ABHYANKAR, RINKU Referring Unavailable ABHYANKAR, RINKU Referring Unavailable HONG, LI Attending Unavailable ABHYANKAR, RINKU Referring Unavailable ABHYANKAR, RINKU Referring Unavailable HONG, LI Attending Unavailable ABHYANKAR, RINKU Referring Unavailable ABHYANKAR, RINKU Referring Unavailable ABHYANKAR, RINKU Referring Unavailable ABHYANKAR, RINKU Referring Unavailable ABHYANKAR, RINKU Attending Unavailable Allergies Allergy ClassificationReported Allergen(s)Allergy TypeDate of OnsetReaction(s) Facility (1 source)codeine; Translations: [CODEINE PHOSPHATE]Drug [id number] [facility] Repository (1 source)codeine; Translations: [CODEINE SULFATE]Drug [id number] [facility] Repository (1 source)VANCOMYCIN AND DERIVATIVES; Translations: [VANCOMYCIN AND DERIVATIVES] Propensity to adverse reactions (disorder)07-13-0528Kar [facility] Repository (20 sources)Vancomycin; Translations: [VANCOMYCIN]Drug Nzwwdfe80-40-5928[place], [facility] (8 sources)Tetanus Vaccines And Toxoid; Translations: [TETANUS VACCINES AND TOXOID]Drug Jqqyynr81-67-6781Av[facility]fr[facility]jnld[facility] (1 source)Tetanus vaccineDrug allergyLandmark Medical Center [facility] Other (20 sources)Tetanus Vaccines And ToxoidDrug Snglypp71-89-2500[facility]zfwpjv Clinic (4 sources)Tetanus vaccineDrug allergyLandmark Medical Center [facility] Other (20 sources)Irespjx-Agsjir-Mejny PertussisDrug Dlcrqrbdgou51-81-3458KlcdSO[facility] (20 sources)Diphtheria,Pertussis (Acellular),Tetanus Vaccine; Translations: [DIPHTHERIA,PERTUSSIS (ACELLULAR),TETANUS VACCINE]Propensity to adverse ltgrizjbx65-41-6245WfzzSktadyegkgMarietta Osteopathic Clinic (8 sources)tetanus toxoid, adsorbed; Translations: [tetanus toxoid, adsorbed] Allergy to axmsozlek58-97-1526[facility]gl[facility] (1 source)VancomycinDrug Iqsilxd99-15-3700RuudlqxqrPark[facility] Rep[facility] Medications Current Medications MedicationDrug Class(es)DatesSig (Normalized)Sig (Original)acetaminophen 500 mg oral tablet (2 sources)Start: 02-05-2025 End: 40-55-4301zhhh 2 tablets by mouth every eight hours in the evening for pain acetaminophen (Tylenol) 500 mg tablet Indications: Cholesteatoma of left ear Take 2 tablets (1,000 mg) by mouth every 8 hours if needed for mild pain (1 - 3) for up to 15 days. 90 tablet 02/05/2025 3:56 PM EDT 02/05/2025 02/20/2025 Active Start: 12-18-2023 End: 12-31-3897slyp 975 mg by mouth once as needed for lwue092 mg, oral, Once, On 12/18/23 at 1430, For 1 dose, Recovery & On Unit, If ordered PRN for pain, nurse is permitted to administer this medication for higher pain scores based on patient preference? Yesacetaminophen 325 mg / oxyCODONE hydrochloride 5 mg oral tablet (14 sources)Opioid AgonistStart: 88-96-1730reti 1 tablet by mouth every four hours as needed1 tablet, oral, Every 4 hours PRN, pain moderate (4-6), second line, Starting on Mon02/05/25 at 1418, Recovery (only), When able to take oral medications., If ordered PRN for pain, nurse is permittedto administer this medication for higher pain scores based on patient preference? YesStart: 02-12-2024 End: 66-78-5054uxie 1 tablet by mouth every six hours as neededoxyCODONE- acetaminophen (PERCOCET) 5-325 mg tablet Take 1 tablet by mouth every 6 hours as needed for pain. 02/12/2024 07/22/2024 Discontinuedalbuterol 0.83 mg/ml inhalation solution (1 source)beta2-Adrenergic AgonistStart: .5 mg, nebulization, Once as needed, wheezing, Starting on Mon02/05/25 at 1418, For 1 dose, Recovery (only) benzonatate 100 mg oral capsule (20 sources)Non-narcotic AntitussiveStart: 09-16-2021 End: 87-46-7372mini 1 capsule by mouth every six hours as neededbenzonatate (Tessalon) 100 MG capsule Take 100 mg by mouth every 6 (six) hours if needed 5ActiveComment on above:Take 1 capsule by mouth every 6 hours as needed for cough.cephalexin 500 mg oral capsule (3 sources)Cephalosporin AntibacterialStart: 02-05-2025 End: 77-14-4638sxwzFOMOzu (KEFLEX) 500 mg capsule Take 500 mg by mouth. 02/05/2025 02/15/2025 ActiveStart: 12-18-2023 End: 00-28-3838rgeq 1 capsule by mouth three times dailycephalexin (Keflex) 500 mg capsule Indications: Cholesteatoma of left ear Take 1 capsule (500 mg) by mouth 3 times a day for 7 days. 21 capsule 12/18/2023 12/25/2023 Active cholecalciferol (Vitamin D3) 200 Unit tablet split tablet (6 sources)cholecalciferol (Vitamin D3) 200 Unit tablet split tablet Take 2,000 Units by mouth in the morning.0 Activeciprofloxacin 3 mg/ml / dexamethasone 1 mg/ml otic suspension (7 sources)Corticosteroid, Quinolone AntimicrobialStart: 02-05-2025 End: 86-69-4224fesvbzbzmkddi-dexAMETHasone (CIPRODEX) 0.3-0.1 % otic suspension 4 drops. 02/05/2025 02/24/2025 ActiveStart: 02-05-2025 End: 27-51-2140gydksfgbwzmdr-dexamethasone (CiproDEX) otic suspension Indications: Cholesteatoma of left ear Administer 4 drops into the left ear 2 times a day for 7 days. 7.5 mL 02/05/2025 3:56 PM EDT 02/05/2025 02/24/2025 ActiveStart: 12-18-2023 End: 98-40-5504eihghmmhpcwzs-dexamethasone (CiproDEX) otic suspension Indications: Cholesteatoma of left ear Administer 4 drops into affected ear(s) 2 times a day. Start your ear drops on 12/18 and continue until follow up 7.5 mL 12/18/2023 Activeclotrimazole 10 mg oral lozenge (1 source)Azole AntifungalStart: 04-02-2025 End: 12-33-1379ovqw 1 tablet by mouth five times dailyclotrimazole (Mycelex) 10 MG dania Indications: Acute glossitis Take 1 tablet (10 mg) by mouth 5 (five) times a day for 10 days 50 tablet 04/02/2025 04/12/2025 Activecyclobenzaprine hydrochloride 5 mg oral tablet (20 sources)Muscle RelaxantStart: 10-11-2024 End: 78-81-9738ztwp 1 tablet by mouth once daily at bedtimecyclobenzaprine (FLEXERIL) 5 mg tablet Take 1 tablet by mouth daily at bedtime. 10 tablet 10/11/2024 Active2 ml droperidol 2.5 mg/ml injection (1 source)Dopamine-2 Receptor AntagonistStart: .625 mg, intravenous, Once as needed, nausea/vomiting, second line, Starting on Mon02/05/25 at 1418, For 1 dose, Recovery (only), Monitor QTc while on therapy (2 lead monitoring)1 ml fentaNYL 0.05 mg/ml injection (1 source)Opioid AgonistStart: 40-35-575601.5 mcg, intravenous, Every 5 min PRN, pain mild (1-3), first line, Starting on Mon02/05/25 at 1418, Recovery (only), Max total of 200 micrograms regardless of dose., If ordered PRN for pain, nurse is permitted to administer this medication for higher pain scores based on patient preference? Yesfostamatinib 100 mg oral tablet (20 sources)Start: 04-29-2021 End: 50-92-2136cwug 1 tablet by mouth twice dailyFostamatinib 100 mg tablet Active 1 TAB PO Twice daily September 20, 2023 12:00am FreeTextSi tablet Orally Twice a day; Note: Source Status: Taking; Provider: Tyrel Riggins ( ) Complies with drug therapyComment on above:Take 100 mg by mouth twice daily.Take 1 tablet by mouth twice daily for 15 days.Take 1 tablet by mouth twice daily.Take 1 tablet by mouth two times a day.0.5 ml HYDROmorphone hydrochloride 1 mg/ml prefilled syringe (4 sources)Opioid AgonistStart: 50.5 mg, intravenous, Every 5 min PRN, pain severe (7-10), first line, Starting on Mon02/05/25 at 1418, Recovery (only), Max total of 4 mg regardless of dose.Start: 50.2 mg, intravenous, Every 5 min PRN, pain moderate (4-6), first line, Starting on Mon02/05/25 at 1418, Recovery (only), Max total of 4 mg regardless of dose.Start: 40.5 mg, intravenous, Every 5 min PRN, pain severe (7-10), first line, Starting on Mon12/18/23 at 1242, Recovery (only), Max total of 4 mg regardless of dose.Start: 40.2 mg, intravenous, Every 5 min PRN, pain moderate (4- 6), first line, Starting on Mon12/18/23 at 1242, Recovery (only), Max total of 4 mg regardless of dose.ibuprofen 200 mg oral tablet (2 sources)Nonsteroidal Anti-inflammatory DrugStart: 70-85-8521nsrd 2 tablets by mouth every six hours in the evening for painibuprofen 200 mg tablet Indications: Cholesteatoma of left ear Take 2 tablets (400 mg) by mouth every 6 hours if needed for moderate pain (4 - 6) for up to 10 days. 80 tablet 02/05/2025 3:56 PM EDT 02/05/2025 Active End: 02-52-3998atdu 1 tablet by mouth every six hours as neededibuprofen (MOTRIN) 200 mg tablet Take 200 mg by mouth every 6 hours as needed. 0 07/16/2021 Discontinued (Discontinued by Patient)Comment on above:Take 200 mg by mouth every 6 hours as needed.labetalol hydrochloride 5 mg/ml injectable solution (1 source)beta-Adrenergic BlockerStart: mg, intravenous, Administer over 1 Minutes, Once as needed, systolic blood pressure greater than 180 mmHg, dystolic blood pressure greater than 100 mmHg and heart rate greater than 60 BPM, Startingon Mon02/05/25 at 1418, For 1 dose, Recovery (only)methocarbamol 750 mg oral tablet (20 sources)Muscle Relaxant End: 09-65-2726rmyzhookrffci (Robaxin) 750 MG tablet Take 750 mg by mouth in the morning and 750 mg at noon and 750 mg in the evening. 08/15/2024 Discontinued (Therapy completed)24 hr metoprolol succinate 25 mg extended release oral tablet (20 sources)beta-Adrenergic BlockerStart: 09-47-8920diqm 2 tablets by mouth every twenty-four hoursMetoprolol Succinate 25 mg tablet extended release 24 hr Active 12.5 MG PO Once August 2151:00am Complies with drug therapy Start: 03-04-2024 End: 54-65-6444sjnc 0.5 tablet by mouth once dailymetoprolol succinate XL (Toprol-XL) 25 MG 24 hr tablet Indications: Coronary artery disease involving 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 Take 0.5 tablets (12.5 mg) by mouth Daily Do not crush or chew. 45 tablet 1 12/31/2024 Active Start: 03-04-2024 End: 52-72-4499hgng 1 tablet by mouth once dailymetoprolol succinate ER (TOPROL XL) 25 mg 24 hr tablet Take 12.5 mg by mouth once daily. 03/04/2024ctive naproxen 500 mg oral tablet (5 sources)Nonsteroidal Anti-inflammatory DrugStart: 10-12-0714wwwx 1 tablet by mouth twice daily as needednaproxen (Naprosyn) 500 MG tablet Take 500 mg by mouth 2 (two) times a day as needed 11/11/2024 Active2 ml ondansetron 2 mg/ml injection (20 sources)Serotonin-3 Receptor AntagonistStart: mg, intravenous, Once as needed, nausea/vomiting, first line, Starting on Mon02/05/25 at 1418, For 1 dose, Recovery (only), When administering via IV Push, administer over 3-5 minutes.Start: 02-12-2024 End: 91-22-7489zjma 1 tablet by mouth every eight hours as neededondansetron orally disintegrating (ZOFRAN ODT) 4 mg disintegrating tablet Take 4 mg by mouth every 8 hours as needed for nausea/vomiting. 02/12/2024 07/22/2024 Discontinued Start: mg, intravenous, Once as needed, nausea/vomiting, first line, Starting on Mon12/18/23 at 1242, For 1 dose, Recovery (only), When administering via IV Push, administer over 3-5 minutes.oxygen (O2) therapy (1 source)Start: 28-71-5152logqzopotv, Continuous - O2/gases, oxygen, Starting on Mon02/05/25 at 1418, Recovery (only), Device: Nasal Cannula, Rate in liters per minute: Other, Custom Value: 1-6 LPM, Keep O2 Sat Above: 92%pilocarpine hydrochloride 5 mg oral tablet (20 sources)Cholinergic Receptor AgonistStart: 01-27-2023 End: 58-48-4648rwgd 1 tablet by mouth three times dailyPilocarpine Hcl 5 mg tablet Active 1 TAB PO Three times daily September 20, 2023 12:00am FreeTextSi tablet Orally Three times a day; Note: Source Status: Taking; Provider: Tyrel Riggins ( ) Complies with drug therapyStart: 07-20-2022 End: 76-82-7115ritx 1 tablet by mouth three times dailypilocarpine (SALAGEN) 5 mg tablet TAKE 1 TABLET BY MOUTH THREE TIMES A DAY 90 tablet 3 10/26/2022 Active Start: 03-30-2022 End: 97-73-9135jxqc 1 tablet by mouth three times dailypilocarpine (SALAGEN) 5 mg tablet TAKE 1 TABLET BY MOUTH THREE TIMES A DAY 90 tablet 0 06/23/2022 Active Start: 02-11-2022 End: 94-44-2151ogrw 1 tablet by mouth three times dailypilocarpine (SALAGEN) 5 mg tablet TAKE 1 TABLET BY MOUTH THREE TIMES A DAY 90 tablet 0 03/07/2022 Active Comment on above:Take 1 tablet by mouth three times daily.TAKE 1 TABLET BY MOUTH THREE TIMES A DAYTake 1 tablet by mouth three times a day.promethazine (Phenergan) 6.25 mg in sodium chloride 0.9% 50 mL IV (1 source)Start: .25 mg, intravenous, Administer over 15 Minutes, Once as needed, Nausea/vomiting, second line, Starting on Mon12/18/23 at 1242, For 1 dose, Recovery (only)sodium bicarbonate 650 mg oral tablet (14 sources)Start: 12-27-2024 End: 42-76-8133omyh 1 tablet by mouth in the morningsodium bicarbonate 650 MG tablet Take 650 mg by mouth in the morning and 650 mg before bedtime. 12/27/2024 04/02/2025 Discontinued (Therapy completed) Completed/Discontinued Medications MedicationDrug Class(es)DatesSig (Normalized)Sig (Original)alendronic acid 70 mg oral tablet (20 sources)BisphosphonateStart: 31-26-3558khyl 1 tablet by mouth every week Alendronate 70 mg tablet Active 70 MG PO every week August 21, 2024 2:20pm Complies with drug therapyStart: 06-06-2023 End: 01-56-6834Uidcopihhts 70 mg tablet Discontinued 1 TAB PO Every morning September 20, 2023 12:00am August 21, 2024 2:23pm FreeTextSi tablet 30 minutes before the first food, beverage or medicine of the day with plain water Orally ONCE A WEEK; Note: Source Status: Taking; Provider: Tyrel Riggins ( )Start: 06-06-2023 End: 00-06-1380aego 1 tablet by mouth in the morningalendronate (Fosamax) 70 MG tablet Indications: Age-related osteoporosis without current pathological fracture Take 1 tablet (70 mg) by mouth every 7 (seven) days Take in the morning with a full glass of water, on an empty stomach, and do not take anything else by mouth or lie down for the next 30 min. 12 tablet 1 01/01/2025 ActiveComment on above:PLEASE SEE ATTACHED FOR DETAILED DIRECTIONSamoxicillin 875 mg / clavulanate 125 mg oral tablet (1 source)Penicillin-class AntibacterialStart: 04-29-2021 End: 33-90-1448yvlp 1 tablet by mouth twice dailyamoxicillin-clavulanic acid (AUGMENTIN) 875-125 mg per tablet Indications: Malaise and fatigue , Acute frontal sinusitis, recurrence not specified Take 1 tablet by mouth twice daily for 14 days. 28 tablet 0 04/29/2021 05/13/2021 ExpiredComment on above:Take 1 tablet by mouth twice daily for 14 days.calcium chloride 0.0014 meq/ml / potassium chloride 0.004 meq/ml / sodium chloride 0.103 meq/ml / sodium lactate 0.028 meq/ml injectable solution (2 sources)Start: 02-05-2025 End: 14-79-8295mfmu 50 mL intravenously every hour50 mL/hr, intravenous, Continuous, Starting on Mon02/05/25 at 1445, For 1 hour, Recovery (only)Start: 93-25-7782dcjh 100 mL intravenously every zqhr023 mL/hr, intravenous, Continuous, Starting on Mon12/18/23 at 1300, Recovery (only)cholecalciferol, vitamin D3, (VITAMIN D3 ORAL) (20 sources) End: 44-34-3446vgwaowvxwlmndql, vitamin D3, (VITAMIN D3 ORAL) Take by mouth. 07/22/2024 Discontinuedcholecalciferol, vitamin D3, (VITAMIN D3 ORAL) Take by mouth. Activecholecalciferol, vitamin D3, (VITAMIN D3 ORAL) Take by mouth. 0 ActiveComment on above:Take by mouth.0.4 ml darbepoetin toney 0.5 mg/ml prefilled syringe (5 sources)Erythropoiesis-stimulating AgentStart: 01-31-2025 End: 98-30-2010xismpc 1 dose by subcutaneous injection [id number] mcg, SUBCUTANEOUS, ONCE, 1 dose, On Mon01/31/25 at 1430, Protect from light REFRIGERATEStart: 01-17-2025 End: 31-24-4699dibidy 1 dose by subcutaneous injection [id number] mcg, SUBCUTANEOUS, ONCE, 1 dose, On Mon01/17/25 at 1430, Protect from light REFRIGERATEStart: 01-03-2025 End: 70-24-7532ntovvq 1 dose by subcutaneous injection javg094 mcg, SUBCUTANEOUS, ONCE, 1 dose, On Mon01/03/25 at 1500, Protect from light REFRIGERATEStart: 12-20-2024 End: 27-99-1184otmyxs 1 dose by subcutaneous injection [id number] mcg, SUBCUTANEOUS, ONCE, 1 dose, On Mon12/20/24 at 1400, Protect from light REFRIGERATEStart: 2024 End: 16-05-9713ajjkym 1 dose by subcutaneous injection ipot422 mcg, SUBCUTANEOUS, ONCE, 1 dose, On Mon12/06/24 at 1400, Protect from light REFRIGERATEdocusate sodium 50 mg / sennosides, alf 8.6 mg oral tablet (1 source)Start: 02-05-2025 End: 11-59-9810fgou 1 tablet by mouth once dailysennosides-docusate sodium (Senna with Docusate Sodium) 8.6-50 mg tablet Indications: Cholesteatomaof left ear Take 1 tablet by mouth once daily for 10 days. 10 tablet 02/05/2025 02/05/2025 Discontinued (Stop Taking at Discharge)ergocalciferol 1.25 mg oral capsule (20 sources)Provitamin D2 CompoundStart: 06-28-2023 End: 19-74-0056ghvi 1 capsule by mouth every weekErgocalciferol (Vitamin D2) 1,250 mcg (50,000 unit) capsule Discontinued 1250 MCG PO Once a week 141 January 27, 2025 2:10pm January 27, 2025 2:16pm FreeTextSi capsule Orally Q week; Note: Source Status: Start; Refills: 1; Provider: Tyrel Ackermantart: 06-28-2023 End: 07-00-4052jzpg 1 capsule by mouth every weekergocalciferol 50,000 unit capsule (VITAMIN D2, DRISDOL) Take 1 capsule by mouth one time a week. Activetake 1 capsule by mouth every weekergocalciferol (Vitamin D-2) 1.25 MG (03489 UT) capsule Take 50,000 Units by mouth 1 (one) time perweek ActiveComment on above:Take 1 capsule by mouth one time a week.furosemide 20 mg oral tablet (1 source)Loop Diuretic End: 95-74-1371ekqgxwzvqe (LASIX) 20 mg tablet Take 20 mg by mouth as needed. 0 07/16/2021 Discontinued (Discontinued by Patient)Comment on above:Take 20 mg by mouth as needed.hydroCHLOROthiazide 25 mg oral tablet (20 sources)Thiazide DiureticStart: 01-26-2023 End: 61-18-2012rhrw 1 tablet by mouth once daily in the morning Hydrochlorothiazide 25 mg tablet Discontinued 1 TAB PO Daily September 20, 2023 12:00am August 21, 2024 2:23pm FreeTextSi tablet in the morning Orally Once a day; Note: Source Status: Taking; Provider: Tyrel Riggins ( )Start: 07-28-2021 End: 86-62-4622xdue 1 tablet by mouth once dailyhydroCHLOROthiazide (HYDRODIURIL, ESIDRIX) 25 mg tablet Indications: Essential hypertension , Chroni c ITP (idiopathic thrombocytopenia) (HCC) , Obstructive sleep apnea syndrome TAKE 1 TABLET BY MOUTHEVERY DAY 90 tablet 3 01/17/2022 ActiveComment on above: TAKE 1 TABLET BY MOUTH EVERY DAYTake 1 tablet by mouth once daily.lisinopril 10 mg oral tablet (1 source)Angiotensin Converting Enzyme InhibitorStart: 04-29-2021 End: 29-55-5537chfi 1 tablet by mouth once dailylisinopril (ZESTRIL, PRINIVIL) 10 mg tablet Indications: Secondary hypertension Take 1 tablet by mouth once daily. 30 tablet 1 04/29/2021 05/13/2021 DiscontinuedComment on above:Take 1 tablet by mouth once daily.losartan potassium 25 mg oral tablet (20 sources)Angiotensin 2 Receptor BlockerStart: 03-30-2022 End: 65-37-1969poxq 2 tablets by mouth once dailyLosartan 25 mg tablet Discontinued MG PO September 20, 2023 12:00am August 21, 2024 2:23pm FreeTex tSi tablet Orally daily; Note: Source Status: Taking; Refills: 1; Qty: 180 Tablet; Provider: Tyrel Riggins ( )Start: 02-06-2022 End: 23-85-3777gqub 2 tablets by mouth once dailylosartan (COZAAR) 25 mg tablet Indications: Hypertension, unspecified type TAKE 2 TABLETS BY MOUTH EVERY DAY 60 tablet 1 02/06/2022 03/07/2022 DiscontinuedStart: 01-17-2022 End: 28-19-1383wwzu 1 tablet by mouth once dailylosartan (COZAAR) 25 mg tablet Indications: Hypertension, unspecified type TAKE 1 TABLET BY MOUTH EVERY DAY 90 tablet 3 01/17/2022 02/06/2022 DiscontinuedStart: 12-17-2021 End: 32-30-0900cmrf 2 tablets by mouth once dailylosartan (COZAAR) 25 mg tablet Indications: Hypertension, unspecified type TAKE 2 TABLETS BY MOUTH EVERY DAY 60 tablet 1 01/11/2022 01/17/2022 DiscontinuedStart: 07-28-2021 End: 57-82-7334wnlp 1 tablet by mouth once dailylosartan (COZAAR) 25 mg tablet Indications: Hypertension, unspecified type TAKE 1 TABLET BY MOUTH EVERY DAY 30 tablet 2 10/19/2021 12/17/2021 DiscontinuedComment on above:TAKE 1 TABLET BY MOUTH EVERY DAYTake 1 tablet by mouth once daily.Take 2 tablets by mouth once daily.TAKE 2 TABLETS BY MOUTH EVERY DAYTake 2 tablets by mouth daily at bedtime. take 2 tablets by mouth every day at bedtimeMagnesium (1 source) End: 15-56-3675HHKVZZEGU ORAL Take by mouth. 0 07/16/2021 Discontinued (Discontinued by Patient)Comment on above:Take by mouth.spironolactone 25 mg oral tablet (20 sources)Aldosterone AntagonistStart: 10-09-2024 End: 41-66-0617zazc 1 tablet by mouth once dailySpironolactone 25 mg tablet Discontinued 0 .ROUTE .COMPLEX 90 October 09, 2024 11:30am January 27, 2025 1:52pm TAKE 1 TABLET BY MOUTH DAILYStart: 09-07-2022 End: 35-57-2253mpxb 1 tablet by mouth once dailySpironolactone 25 mg tablet Discontinued 25 MG PO Daily September 20, 2023 12:00am May 160:16am Comment on above:Take 25 mg by mouth once daily.traMADol hydrochloride 50 mg oral tablet (15 sources)Opioid AgonistStart: 02-05-2025 End: 01-10-5780zugl 1 tablet by mouth every six hours for paintraMADol (Ultram) 50 mg tablet Indications: Cholesteatoma of left ear Take 1 tablet (50 mg) by mouth every 6 hours if needed for severe pain (7 - 10) for up to 5 days. 20 tablet 02/05/2025 02/05/2025Discontinued (Stop Taking at Discharge)Start: 12-18-2023 End: 44-87-5579kuvg 1 tablet by mouth every six hours as neededtraMADol (ULTRAM) 50 mg tablet Take 50 mg by mouth every 6 hours as needed for pain. 12/18/2023 07/22/2024 Discontinuedvitamin b12 1 mg/ml injectable solution (10 sources)Vitamin W75Urjnn: 03-14-2025 End: 47-59-0315npddgs 1 dose by intramuscular injection once1,000 mcg, INTRAMUSCULAR, ONCE, 1 dose, On Mon03/14/25 at 1430Start: 01-17-2025 End: 36-93-2194yrncmq 1 dose by intramuscular injection once1,000 mcg, INTRAMUSCULAR, ONCE, 1 dose, On Mon01/17/25 at 1430Start: 12-20-2024 End: 43-00-4589sjwgoo 1 dose by intramuscular injection once1,000 mcg, INTRAMUSCULAR, ONCE, 1 dose, On Mon12/20/24 at 1400Start: 11-22-2024 End: 28-85-1248kcyjsn 1 dose by intramuscular injection once1,000 mcg, INTRAMUSCULAR, ONCE, 1 dose, On Mon11/22/24 at 1430Start: 10-11-2024 End: 64-33-6755zdgkvy 1 dose by intramuscular injection once1,000 mcg, INTRAMUSCULAR, ONCE, 1 dose, On Mon10/11/24 at 1030Start: 08-30-2024 End: 04-07-4133nwgrup 1 dose by intramuscular injection once1,000 mcg, INTRAMUSCULAR, ONCE, 1 dose, On Mon08/30/24 at 1100Start: 07-11-2024 End: 12-03-3829pfveav 1 dose by intramuscular injection once1,000 mcg, INTRAMUSCULAR, ONCE, 1 dose, On Mon07/11/24 at 1130Start: 05-30-2024 End: 17-95-9643psqyea 1 dose by intramuscular injection once1,000 mcg, INTRAMUSCULAR, ONCE, 1 dose, On Mon05/30/24 at 1100Start: 04-18-2024 End: 41-85-7305ghtcuc 1 dose by intramuscular injection once1,000 mcg, INTRAMUSCULAR, ONCE, 1 dose, On Mon04/18/24 at 1130Start: 03-05-2024 End: 26-13-5456xkehai 1 dose by intramuscular injection once1,000 mcg, INTRAMUSCULAR, ONCE, 1 dose, On Mon03/05/24 at 1130Zinc (1 source) End: 58-77-7955GTWT ORAL Take by mouth. 0 07/16/2021 Discontinued (Discontinued by Patient)Comment on above:Take by mouth. Problems Active Problems Problem ClassificationProblemDateDocumented DateEpisodic/ChronicAortic; peripheral; and visceral artery aneurysms (20 sources)Abdominal aortic aneurysm without rupture; Translations: [Abdominal aortic aneurysm (AAA) without rupture, unspecified part]Onset: 01-21-2025 14-58-2127MbpimwcYphsybq kidney disease (20 sources)Chronic kidney disease stage 3B ; Translations: [Stage 3b chronic kidney disease (HCC)]Onset: 08-12-2024 Resolved: 951107-20-1984GaoomuvRfabokb kidney disease (2 sources)Chronic kidney disease; Translations: [Chronic kidney disease, stage 3 unspecified]Onset: 06-55-0579Smtfievbsoq and hemorrhagic disorders (20 sources)Chronic idiopathic thrombocytopenic purpura; Translations: [Immune thrombocytopenic purpura]Onset: 03-03-2016 Resolved: 63-42-4636HicgsymWxxbugav atherosclerosis and other heart disease (20 sources)Coronary arteriosclerosis; Translations: [Atherosclerotic heart disease of [place] coronary artery without angina pectoris]Onset: 02-26-2024 43-89-6517YprctmxYsdhpfcikq and other anemia (10 sources)Anemia; Translations: [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)]55-94-0708WeyxdtrSktuneabtt and other anemia (2 sources)Anemia in chronic kidney disease; Translations: [Anemia in chronic kidney disease]Onset: 09-64-6830IujixotZmjrpoqbrg and other anemia (20 sources)Megaloblastic anemia due to vitamin B>12< deficiency; Translations: [Other megaloblastic anemias, not elsewhere classified]Onset: 03-05-2024 12-39-5950BndolgvgHuykuvngiv and other anemia (1 source)Deficiency and other anemia; Translations: [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)]Onset: 92-82-2041Ximmqglij hypertension (20 sources)Essential hypertension; Translations: [Essential (primary) hypertension]Onset: 05-13-2021 Resolved: 91-97-1977EkyumraPefoo valve disorders (20 sources)Aortic valve calcification; Translations: [Nonrheumatic aortic valve disorder, unspecified]Onset: 397951-41-0381PwyvsuaPmzszturmlan with complications and secondary hypertension (16 sources)Secondary hypertension; Translations: [Secondary hypertension, unspecified]Onset: 104182-95-3496IrpkgrwTgmatbiqckk deficiencies (15 sources)Vitamin D deficiency; Translations: [Vitamin D deficiency, unspecified]Onset: 00-64-6129PnyixpkMgdzaorpcmev (20 sources)Senile osteoporosis; Translations: [Age-related osteoporosis without current pathological fracture]Onset: 080077-65-5951MrkjsjlOhjbr bone disease and musculoskeletal deformities (2 sources)Other specified disorders of bone, lower leg; Translations: [Other specified disorders of bone, lower leg]Onset: 10-87-0636HvvxaxhaBujwa connective tissue disease (20 sources)Cramp in lower limb; Translations: [Sleep related leg cramps]Onset: 596722-78-2681MmkaqkrBecyz connective tissue disease (20 sources)Pain in bilateral legs; Translations: [Pain in right leg]Onset: 707985-76-3724GfdbtoauNsecx connective tissue disease (6 sources)Pain in left lower limb; Translations: [Pain in left leg]04-09-2024 EpisodicOther diseases of kidney and ureters (4 sources)Secondary hyperparathyroidism; Translations: [Secondary hyperparathyroidism of renal origin]39-34-7233BsrdcuiEojgl diseases of kidney and ureters (12 sources)Complex renal cyst; Translations: [Cyst of kidney, acquired] 67-94-1689EqwbwwneEjvtb ear and sense organ disorders (3 sources)Mixed conductive AND sensorineural hearing loss; Translations: [Mixed conductive and sensorineural hearing loss, unilateral, left ear with restricted hearing on the contralateral side]26-00-8169AyrhonjQusha ear and sense organ disorders (20 sources)Hearing loss; Translations: [Unspecified hearing loss, unspecified ear]Onset: 324755-55-4949ZyxrlcmWwusm ear and sense organ disorders (20 sources)Cholesteatoma; Translations: [Unspecified cholesteatoma, left ear] Onset: 495748-34-3346SwbsludrFwvce ear and sense organ disorders (5 sources)Unspecified cholesteatoma, left ear; Translations: [Unspecified cholesteatoma, left ear]Onset: 18-02-1106KabixscuGatsx lower respiratory disease (20 sources)Multiple nodules of lung; Translations: [Other nonspecific abnormal finding of lung field]Onset: 09-38-4042HbsajiquPmgxm nervous system disorders (20 sources)Compression injury of nerve; 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, unspecified]Onset: 805724-92-0336LejxjukVwxke nervous system disorders (1 source)Postoperative pain ; Translations: [Other acute postprocedural pain] 59-22-8696NwjufwocEiqdw nutritional; endocrine; and metabolic disorders (20 sources)Body mass index 30+ - obesity; Translations: [Obesity, unspecified] Onset: 247889-10-4451HlbsypbYncpc nutritional; endocrine; and metabolic disorders (11 sources)Obesity caused by energy imbalance; Translations: [Other obesity due to excess calories]60-62-6702GdmiqjfTcpgk nutritional; endocrine; and metabolic disorders (3 sources)Hyperuricemia without signs of inflammatory arthritis and tophaceous disease; Translations: [Other abnormal blood chemistry]Onset: 18-82-0645Xmhrynqy Other nutritional; endocrine; and metabolic disorders (12 sources)Hyperuricemia; Translations: [Hyperuricemia without signs of inflammatory arthritis and tophaceous disease]33-23-7735DllkpptdPibod screening for suspected conditions (not mental disorders or infectious disease) (20 sources)Patient encounter status; Translations: [Encounter for screening mammogram for malignant neoplasm of breast]Onset: 439955-29-0285Kkexqirk Other skin disorders (1 source)Mass of skin of right lower limb; Translations: [Disorder of the skin and subcutaneous tissue, unspecified]EpisodicOtitis media and related conditions (20 sources)Perforation of left tympanic membrane; Translations: [Unspecified perforation of tympanic membrane,left ear]Onset: 06-29-2022 Resolved: 060317-45-4728AyfuizokVwyjhmpczt and visceral atherosclerosis (20 sources)Intermittent claudication; Translations: [Peripheral vascular disease, unspecified]Onset: 407196-20-6892YpvnvkuUpkyqthww heart disease (20 sources)Pulmonary arterial hypertension; Translations: [Secondary pulmonary arterial hypertension]Onset: 565452-11-3524BozshubYncixiit codes; unclassified (20 sources)Obstructive sleep apnea syndrome; Translations: [Obstructive sleep apnea (adult) (pediatric)]Onset: 00-14-5999QlxyvnlXwmgajdw codes; unclassified (7 sources)Obstructive sleep apnea (adult) (pediatric); Translations: [Obstructive sleep apnea (adult)(pediatric)]Onset: 05-13-2021 Resolved: 95-26-3970AxerkfgTppgmqrx codes; unclassified (20 sources)Family history of breast cancer; Translations: [Family history of malignant neoplasm of breast]Onset: 509316-16-1020ErstboekWruzazmb codes; unclassified (1 source)Preoperative cdidy59-62-5892YzavqlchPtnekpzvbjy; intervertebral disc disorders; other back problems (20 sources)Lumbar spondylosis; Translations: [Spondylosis without myelopathy or radiculopathy, lumbar region]Onset: 01-15-2025 Resolved: 333147-43-8322OypimayFnzzajk and strains (12 sources)Sprain of left ankle; Translations: [Sprain of unspecified ligament of left ankle, initial encounter]52-61-1342UsafmtpgHvutucnvi-related disorders (20 sources)Tobacco dependence syndrome; Translations: [Nicotine dependence, unspecified, uncomplicated]Onset: 888162-01-1722LxlemzmOkxchhlq lupus erythematosus and connective tissue disorders (20 sources)Lupus erythematosus; Translations: [Systemic lupus erythematosus, unspecified]Onset: 03-03-2016 Resolved: 634302-35-5718FozkzyfIkgwboo disorders (20 sources)Thyroid nodule; Translations: [Nontoxic single thyroid nodule]Onset: 732641-50-9659CwxckaiOihqhueekwmw (2 sources)Unknown / UNK(Unknown)Onset: 09-12-8694Dusjrdkjcbuh (2 sources)Post-op; Translations: [Post-op]Onset: 06-80-1075Teuxujikbuyd (1 source)Autogenerated ProblemOnset: 628068-44-3262Xqjxkhdvfdlb (5 sources)I71.40 - Abdominal aortic aneurysm, without rupture, unspecified Past or Other Problems Problem ClassificationProblemDateDocumented DateEpisodic/ChronicAcute and unspecified renal failure (20 sources)Acute renal failure syndrome; Translations: [Acute kidney failure, unspecified]Onset: 270387-26-3818VvivbnlbDsvkrxnpjj and other anemia (3 sources)Anemia, unspecified; Translations: [Anemia, unspecified]Onset: 45-36-1237YibjehzkFjqwxqocxc and other anemia (1 source)Other megaloblastic anemias, not elsewhere classified; Translations: [Megaloblastic anemia due to vitamin B12 deficiency]Onset: 03-59-7340Qngujmjs Diabetes mellitus without complication (20 sources)Increased glucose level; Translations: [Other abnormal glucose] Onset: 04-04-2024 Resolved: 289823-61-3389RishlhvjTwyyrpkw of mouth; excluding dental (20 sources)Xerostomia; Translations: [Dry mouth, unspecified]Onset: 01-05-2017 27-90-7643UxxfbqwgGpjrm and electrolyte disorders (20 sources)Hyperkalemia with normal acid-base balance; Translations: [Hyperkalemia]Onset: 469066-36-2494AzcpqvvmEzjecyg and fatigue (20 sources)Malaise and fatigue; Translations: [Other malaise]Onset: 11-28-2023 EpisodicMood disorders (20 sources)Mood disordersOnset: 945665-71-3904Lpfxqhknxsu chest pain (20 sources)Chest pain; Translations: [Other chest pain]Onset: 04-04-2024 75-18-5093TxakknquNvsgp aftercare (3 sources)Postoperative visit; Translations: [Encounter for other specified surgical aftercare]Onset: 144440-20-9262QwsmzigjPdvvz aftercare (2 sources)Encounter for other specified surgical aftercare; Translations: [Encounter for other specified surgical aftercare]Onset: 19-01-8697ZxmtwquqKijbo bone disease and musculoskeletal deformities (5 sources)Disorder of bone, unspecified; Translations: [Other specified disorders of bone, lower leg]Onset: 26-75-0719FugbcaacFitza connective tissue disease (1 source)Pain in right leg; Translations: [PAIN IN RIGHT LEG]Onset: 05-24-2016 EpisodicOther connective tissue disease (20 sources)Other symptoms and signs involving the musculoskeletal system; Translations: [Other musculoskeletalsymptoms referable to limbs]Onset: 230393-86-0654OijgcrbyPrxyo connective tissue disease (3 sources)Pain in left lower leg; Translations: [Pain in left lower leg]Onset: 95-57-0345RjjhnfdxKqvde connective tissue disease (1 source)Pain in left leg; Translations: [Pain in left leg]Onset: 04-10-2024 EpisodicOther diseases of kidney and ureters (6 sources)Cyst of kidney, acquired; Translations: [Cystic kidney disease, unspecified]Onset: 03-34-6841NfdypueiVswhw gastrointestinal disorders (20 sources)Diarrhea; Translations: [Diarrhea, unspecified]Onset: 04-24-2024 61-44-4784QptwlinjUzmqu non-traumatic joint disorders (20 sources)Pain of left wrist; Translations: [Pain in left wrist]Onset: 267073-09-8149ZgludoigXhula non-traumatic joint disorders (20 sources)Pain in left knee; Translations: [Pain in joint, lower leg]Onset: 218701-10-0963MnbvxeaoDqalu nutritional; endocrine; and metabolic disorders (20 sources)Abnormal weight loss; Translations: [Abnormal weight loss]Onset: 429605-99-7489MmlyubtcNdfar nutritional; endocrine; and metabolic disorders (1 source)Abnormal weight loss; Translations: [Abnormal weight loss]Onset: 33-78-6142GzjsuiavWofqqtoj codes; unclassified (20 sources)Family history of cancer; Translations: [Family history of malignant neoplasm, unspecified]Onset: 08-15-2024 Resolved: 335890-52-2485UygtuaezXwdbiwneacm; intervertebral disc disorders; other back problems (20 sources)Low back pain; Translations: [Lumbar back pain]Onset: 02-12-2024 01-41-8648NaetikvyCbusomw disorders (20 sources)Disorder of thyroid gland; Translations: [Disorder of thyroid, unspecified]Onset: 228845-11-9035TxgwwbplTlmtrfedcvia (1 source)Acute miliary tuberculosis, unspecified; Translations: [Acute miliary tuberculosis, unspecified]Onset: 29-62-5344MpfdjdfnBazupflhsmbw (6 sources)Onset: 11-14-2023 Resolved: Results Test NameValueInterpretationReference RangeFacilityCBC W Auto Differential panel (Bld)on 55-34-4212Rexuexhnh (Bld) [#/Vol]10*3/uLNormal<0.11CHenry [facility] Hospital on above:Order Comment: Specimen Type: BLOOD SPECIMENOrdering Facility: [facility] Address:[address] [place] [address]Mhitirumi By: #### 41977-5 ####[facility] LABCLIA [id number] [place], [place] [address]Yipgmmjod/100 WBC (Bld)0.2 % NormalCleveland Clinic ClevelandComment on above:Order Comment: Specimen Type: BLOOD SPECIMENOrdering Facility: [facility] Address:[address] [place], [place] [address]Performed By: #### 19500-4 ####[facility] LABIA [id number] [place] [address] Differential cell count method Nom (Bld)AutoNormalClevelNovant Health Mint [facility] Comment on above:Order Comment: Specimen Type: BLOOD SPECIMENOrdering Facility: [facility] Address:[address] [place] [address] Performed By: #### 81768-0 ####[facility] LABIA [id number] [place], [place] [address]Ungfahiuymw (Bld) [#/Vol] 10*3/uLNormal<0.46Ohio [facility] HospitalCommunson [facility] center on above:Order Comment: Specimen Type: BLOOD SPECIMENOrdering Facility: [facility] Address:[address] [place], [place] [address]Performed By: #### 39221-4 ####[facility] LABIA [id number] [place], [place] [address]Fsarjjwfpjh/100 WBC (Bld)0.5 %NormalOhio Valley HospitalComment on above:Order Comment: Specimen Type: BLOOD SPECIMENOrdering Facility: [facility] Address:[address] [place], [place] [address]Performed By: #### 79552-5 ####[facility] LABIA [id number] [place], [place] [address]Srfqbbkjaxp distribution width (RBC) [Ratio]14.7 %Hbjhjt69.5-15.0[facility] on above: Order Comment: Specimen Type: BLOOD SPECIMENOrdering Facility: [facility] Address:[address] [place], [place] [address]Performed By: #### 56697- 8 ####[facility] LABCLIA [id number] [place], [place] [address]Fjkouvfmpv (Bld) [Volume fraction]37.0 %Ezfxup13.0-46.0 [facility] on above:Order Comment: Specimen Type: BLOOD SPECIMENOrdering Facility: [facility] Address:[address] [place], [place] [address]Performed By: #### 05592-1 ####[facility] LABCLIA [id number] [place], [place] [address]Ocqetjymvh (Bld) [Mass/Vol]11.7 g/hPXihxyx67.5-15.5CHenry County Hospital on above: Order Comment: Specimen Type: BLOOD SPECIMENOrdering Facility: [facility] Address:[address] [place], [place] [address]Performed By: #### 28528- 8 ####[facility] LABCLIA [id number] [place], [place] [address]Woijyggd granulocytes (Bld) [#/Vol]10*3/uLNormal<0.10 [facility] on above:Order Comment: Specimen Type: BLOOD SPECIMENOrdering Facility: [facility] Address:[address] [place], [place] [address]Performed By: #### 91944-6 ####[facility] LABIA [id number] [place], [place] [address]Dbzxtdiv granulocytes/100 WBC (Bld)0.2 %NormalTrinity Health System on above: Order Comment: Specimen Type: BLOOD SPECIMENOrdering Facility: [facility] Address:[address] [place], [place] [address]Performed By: #### 29697- 8 ####[facility] LABIA [id number] [place], [place] [address]Jsubqncortj (Bld) [#/Vol]1.94 10*3/uLNormal1.00-4.00 [facility] on above:Order Comment: Specimen Type: BLOOD SPECIMENOrdering Facility: [facility] Address:[address] [place], [place] [address]Performed By: #### 33620-6 ####[facility] LABIA [id number] [place], [place] [address]Pltorybljtu/100 WBC (Bld)47.7 %NormalTrinity Health System on above:Order Comment: Specimen Type: BLOOD SPECIMENOrdering Facility: [facility] Address:[address] [place], [place] [address]Performed By: #### 81427-9 ####[facility] LABCLIA [id number] [place], [place] [address]DDU (RBC) [Entitic mass]31.2 oxWpcrfu23.0-34.0[facility] on above:Order Comment: Specimen Type: BLOOD SPECIMENOrdering Facility: [facility] Address:[address] [place], [place] [address]Performed By: #### 95288-3 ####[facility] LABCLIA [id number] [place], [place] [address]BJJK (RBC) [Mass/Vol]31.6 g/vHNlurrp84.5-36.0[facility] on above: Order Comment: Specimen Type: BLOOD SPECIMENOrdering Facility: [facility] Address:[address] [place], [place] [address]Performed By: #### 06783- 8 ####[facility] LABCLIA [id number] [place], [place] [address]MSB (RBC) [Entitic vol]98.7 xFXquvwj94.0-100.0[facility] on above:Order Comment: Specimen Type: BLOOD SPECIMENOrdering Facility: [facility] Address:[address] [place], [place] [address]Performed By: #### 47689-7 ####[facility] LABIA [id number] [place], [place] [address]Vtvlkndmk (Bld) [#/Vol]0.23 10*3/uLNormal<0.87[facility] on above:Order Comment: Specimen Type: BLOOD SPECIMENOrdering Facility: [facility] Address:[address] [place], [place] [address]Performed By: #### 92022- 8 ####[facility] LABCLIA [id number] [place], [place] [address]Cjlcruyyw/100 WBC (Bld)5.7 %NormalTrinity Health System on above:Order Comment: Specimen Type: BLOOD SPECIMENOrdering Facility: [facility] Address:[address] [place], [place] [address]Performed By: #### 58175-8 ####[facility] LABCLIA [id number] [place], [place] [address]Tkklpsnxsng (Bld) [#/Vol]1.86 10*3/uLNormal1.45-7.50[facility] on above:Order Comment: Specimen Type: BLOOD SPECIMENOrdering Facility: [facility] Address:[address] [place], [place] [address]Performed By: #### 38384-3 ####[facility] LABCLIA [id number] [place], [place] [address]Bajppgwrlnr/100 WBC (Bld)45.7 %NormalTrinity Health System on above:Order Comment: Specimen Type: BLOOD SPECIMENOrdering Facility: [facility] Address:[address] [place], [place] [address]Performed By: #### 33507-3 ####[facility] LABIA [id number] [place], [place] [address]Kxwlhgrjv RBC (Bld) [#/Vol] 10*3/uLNormal<0.01[facility] on above:Order Comment: Specimen Type: BLOOD SPECIMENOrdering Facility: [facility] Address:[address] [place], [place] [address]Performed By: #### 07910-7 ####[facility] LABCLIA [id number] [place], [place] [address]Hbwlchuig RBC/100 WBC (Bld) [Ratio]0.0 /100 WBCNormal [facility] on above:Order Comment: Specimen Type: BLOOD SPECIMENOrdering Facility: [facility] Address:[address] [place], [place] [address]Performed By: #### 22740-1 ####[facility] LABCLIA [id number] [place], [place] [address]Qwzfrovp mean volume (Bld) [Entitic vol]9.3 fLNormal9.0-12.7CHenry County Hospital on above:Order Comment: Specimen Type: BLOOD SPECIMENOrdering Facility: [facility] Address:[address] [place] [address] Performed By: #### 09876-3 ####[facility] LABCLIA [id number] [place], [place] [address]Vvbhljfvy (Bld) [#/Vol]168 10*3/lKIicoaz747-084UuurvhihmTrinity Health System on above:Order Comment: Specimen Type: BLOOD SPECIMENOrdering Facility: [facility] Address:[address] [place], [place] [address]Performed By: #### 55837-0 ####[facility] LABCLIA [id number] [place], [place] [address]SGV (Bld) [#/Vol]3.75 10*6/uLLow3.90-5.20[facility] on above:Order Comment: Specimen Type: BLOOD SPECIMENOrdering Facility: [facility] Address:[address] [place], [place] [address]Performed By: #### 31077-6 ####[facility] LABCLIA [id number] [place], [place] [address]MGR (Bld) [#/Vol]4.07 10*3/uL Normal3.70-11.00[facility] on above:Order Comment: Specimen Type: BLOOD SPECIMENOrdering Facility: [facility] Address:[address] [place], [place] [address]Performed By: #### 41583-1 ####[facility] LABCLIA [id number] [place], [place] [address]HFPVUAnd 78-50-0478QGOLBMWqdqcvOwutepkyhWayne HealthCare Main Campus metabolic 2000 panelon 89-47-6750Eewjjev [Mass/Vol]3.7 g/dLLow 3.9-4.9CHenry [facility] Hospital on above:Order Comment: Specimen Type: BLOOD SPECIMENOrdering Facility: [facility] Address:[address] [place], [place] [address]Performed By: #### 52666-8 ####[facility] LABCLIA [id number] [place], [place] [address]JOD [Catalytic activity/Vol]80 U/DHewwwt71-689LkigwgaceTrinity Health System on above:Order Comment: Specimen Type: BLOOD SPECIMENOrdering Facility: [facility] Address:[address] [place], [place] [address]Performed By: #### 16250-0 ####[facility] LABCLIA [id number] [place], [place] [address]JDC [Catalytic activity/Vol]12 U/LNormal7-38[facility] on above:Order Comment: Specimen Type: BLOOD SPECIMENOrdering Facility: [facility] Address:[address] [place], [place] [address]Performed By: #### 58131-5 ####[facility] LABCLIA [id number] [place], [place] [address]Sgzgr gap [Moles/Vol]8 mmol/LNormal8-15[facility] on above:Order Comment: Specimen Type: BLOOD SPECIMENOrdering Facility: [facility] Address:[address] [place], [place] [address]Performed By: #### 55568- 8 ####[facility] LABCLIA [id number] LILLY BENNETT [facility]CONPHOEN[facility]ITALMABEL[place], [place] [address]XUH [Catalytic activity/Vol]22 U/BAygkpv17-66QqtjoysrkTrinity Health System on above:Order Comment: Specimen Type: BLOOD SPECIMENOrdering Facility: [facility] Address:[address] [place], [place] [address]Performed By: #### 91121-1 ####[facility] LABCLIA [id number] [place], [place] [address]Gmzkawxqo [Mass/Vol]0.4 mg/dLNormal0.2-1.3CHenry County Hospital on above:Order Comment: Specimen Type: BLOOD SPECIMENOrdering Facility: [facility] Address:[address] [place], [place] [address]Performed By: #### 47024- 8 ####[facility] LABCLIA [id number] [place] [address]Wqcqlrc [Mass/Vol]9.7 mg/dLNormal8.5-10.2CHenry County Hospital on above:Order Comment: Specimen Type: BLOOD SPECIMENOrdering Facility: [facility] Address:[address] [place], [place] [address]Performed By: #### 84222-1 ####[facility] LABCLIA [id number] [facility]YSACR[facility] RIVERBENDDEONTEPHOENIX CHILDREN'S HOSPITALANGELODE[place], [place] [address]Syhkzzol [Moles/Vol]105 mmol/L Zrwybs39-845GdgveyanvTrinity Health System on above:Order Comment: Specimen Type: BLOOD SPECIMENOrdering Facility: [facility] Address:[address] [place], [place] [address]Performed By: #### 00897-9 ####[facility] LABCLIA [id number] [place] [address] CO2 [Moles/Vol]26 mmol/GOmnjgv48-81ObfuntciqTrinity Health System on above: Order Comment: Specimen Type: BLOOD SPECIMENOrdering Facility: [facility] Address:[address] [place], [place] [address]Performed By: #### 90203- 8 ####[facility] LABCLIA [id number] [place], [place] [address]Nbpggsfxxl [Mass/Vol]1.14 mg/dLHigh0.58-0.96[facility] on above:Order Comment: Specimen Type: BLOOD SPECIMENOrdering Facility: [facility] Address:[address] [place], [place] [address]Performed By: #### 51922-6 ####[facility] LABCLIA [id number] [place], [place] [address]gBWYfr SerPlBld CKD-EPI 900737 mL/min/1.73m???Low>=60[facility] on above: Order Comment: Specimen Type: BLOOD SPECIMENOrdering Facility: [facility] Address:[address] [place], [place] [address]Result Comment: Estimated Glomerular Filtration Rate (eGFR) is calculated using the 2020 CKD-EPI cre atinine equation. This equation utilizes serum creatinine, sex, and age as parameters. The creatinine assay has traceable calibration to isotope dilution- mass spectrometry. Refer to KDIGO guidelines for clinical interpretation. In patients with unstable renal function, e.g. those with acute kidney injury, the eGFR may not accurately reflect actual GFR.Performed By: #### 59744-0 ####[facility] LABCLIA [id number] [place], [place] [address]Cnzquix [Mass/Vol]96 mg/pVEqjiic79-64ApmlposhlTrinity Health System on above:Order Comment: Specimen Type: BLOOD SPECIMENOrdering Facility: [facility] Address:[address] [place], [place] [address]Result Comment: The [place] Diabetes Association (ADA) provides guidance for cutoff values for fasting glucose and random glucose. The ADA defines fasting as no caloric intake for at least 8 hours. Fasting plasma glucose results between 100 to 125 mg/dL indicate increased risk for diabetes (prediab etes).Fasting plasma glucose results greater than or equal to 126 mg/dL meet the criteria for diagnosis of diabetes. In the absence of unequivocal hyperglycemia, results should be confirmed by repeattesting. In a patient with classic symptoms of hyperglycemia or hyperglycemic crisis, random plasmaglucose results greater than or equal to 200 mg/dL meet the criteria for diagnosis of diabetes.Reference: Standards of Medical Care in Diabetes 2016, [place] Diabetes Association. Diabetes Care. 2016.39(Suppl 1).Performed By: #### 30946-8 ####[facility] LABCLIA [id number] [place], [place] [address]Qnbrvwooy [Moles/Vol]4.9 mmol/LNormal3.7-5.1CHenry County Hospital on above:Order Comment: Specimen Type: BLOOD SPECIMENOrdering Facility: [facility] Address:[address] [place], [place] [address]Performed By: #### 22424-4 ####[facility] LABIA [id number] [place], [place] [address]Isedzgy [Mass/Vol]7.4 g/dLNormal6.3-8.0[facility] on above:Order Comment: Specimen Type: BLOOD SPECIMENOrdering Facility: [facility] Address:[address] [place], [place] [address]Performed By: #### 52175- 8 ####[facility] LABCLIA [id number] [place], [place] [address]Fwkxox [Moles/Vol]139 mmol/VKoyctl994-500TxcumfsjbTrinity Health System on above:Order Comment: Specimen Type: BLOOD SPECIMENOrdering Facility: [facility] Address:[address] [place], [place] [address]Performed By: #### 91207-5 ####[facility] LABCLIA [id number] [place], [place] [address]Kwjv nitrogen [Mass/Vol]31 mg/dLHigh7-21[facility] on above:Order Comment: Specimen Type: BLOOD SPECIMENOrdering Facility: [facility] Address:[address] [place], [place] [address]Performed By: #### 14229-0 ####[facility] LABCLIA [id number] [place] [address] Ferritin SerPl-mCncon 30-51-5059Uyxuuwrc [Mass/Vol]77.2 ng/kFPjhfev97.7-205.1 [facility] on above:Order Comment: Specimen Type: BLOOD SPECIMENOrdering Facility: [facility] Address:[address] [place], [place] [address]Performed By: #### 22551-5, 2275-10 ####[facility] LABCLIA [id number] [place] [address] [place]#### 89577-5 ####[facility] LABCLIA [id number] [address] LABCLIA [id number] [place], [place] [address]Xfpowr SerPl-mCncon 03-47-3118Pxpfih [Mass/Vol]12.3 ng/mLNormal>4.7CHenry County Hospital on above:Order Comment: Specimen Type: BLOOD SPECIMENOrdering Facility: [facility] Address:[address] [place], [place] [address]Performed By: #### 2284-8, 2132-9 ####[facility] LABCLIA [id number] [place] [address] [place] OF AMERICAIron and Iron binding capacity panelon 02-53-9960Jqfu [Mass/Vol]49 ug/zLIuvvqa75-394 [facility] on above:Order Comment: Specimen Type: BLOOD SPECIMENOrdering Facility: [facility] Address:[address] [place], [place] [address]Performed By: #### 90155-0, 2275- ####[facility] LABCLIA [id number] [place] [address] [place]#### 75556-2 ####[facility] LABCLIA [id number] [address] LABCLIA [id number] [place], [place] [address]Emql binding capacity [Mass/Vol]350 ug/dQJbkcmo646-917PlnkardooTrinity Health System on above:Order Comment: Specimen Type: BLOOD SPECIMENOrdering Facility: [facility] Address:[address] [place], [place] [address]Performed By: #### 30450-2, 2275-10 ####[facility] LABCLIA [id number] [place] [address] [place]#### 22997-4 ####[facility] LABCLIA [id number] [address] LABCLIA [id number] [place], [place] [address]Axhq/TIBC [Molar ratio]14.0 %Low15.0-57.0[facility] on above:Order Comment: Specimen Type: BLOOD SPECIMENOrdering Facility: [facility] Address:[address] [place], [place] [address]Performed By: #### 31394-7, 2275-10 ####[facility] LABCLIA [id number] [place] [address] [place]#### 47273-1 ####[facility] LABCLIA [id number] [address] LABCLIA [id number] [place], [place] [address]Ujazc 1996 panelon 47-34-8613Qxokisjgopl [Mass/Vol]196 mg/dLNormal<200[facility] on above:Order Comment: Specimen Type: BLOOD SPECIMENOrdering Facility: External Submitter Address: , ,Result Comment: <200 mg/dL, Desirable 200-239 mg/dL, Borderline high>239 mg/dL, HighPerformed By: #### 91767-9, 2275-4 ####[facility] LABCLIA [id number] [address] OF [place]#### 70551-2 ####[facility] LABCLIA [id number] [address] LABCLIA [id number] [place], [place] [address]Avnqzhdqhki in HDL [Mass/Vol]41 mg/dLNormal>39[facility] on above:Order Comment: Specimen Type: BLOOD SPECIMENOrdering Facility: External Submitter Address: , ,Result Comment: 40-59 mg/dL, Acceptable>59 mg/dL, High: Negative risk factor for coronary heart d isease<40 mg/dL, Low: Positive risk factor for coronary heart diseasePerformed By: #### 93643-9, 2275-10 ####[facility] LABCLIA [id number] [address]#### 81905-3 ####[facility] LABCLIA [id number] [address] LABCLIA [id number] [place], [place] [address]Vtvecdmgvjb in LDL [Mass/Vol]122 mg/dLHigh<100 [facility] on above:Order Comment: Specimen Type: BLOOD SPECIMENOrdering Facility: External Submitter Address: , ,Result Comment: <100 mg/dL, Optimal 100-129 mg/dL, Near optimal/above optimal 130-159 mg/dL, Bord zoila high 160-189 mg/dL, High>189 mg/dL, Very highSecondary prevention optimal LDL Cholesterollevels are recommended to be <70 mg/dLLDL cholesterol is calculated using the Brennan-NIH equation.Performed By: #### 26130-3, 2275-10 ####[facility] LABCLIA [id number] [address]#### 38987-0 ####[facility] LABCLIA [id number] [place] [address] [facility] LABCLIA [id number] [place], [place] [address]Oyovttroder in LDL/Cholesterol in HDL [Mass ratio]2.98 {ratio}High<2.54[facility] on above:Order Comment: Specimen Type: BLOOD SPECIMENOrdering Facility: External Submitter Address: , , Result Comment: Reference:1. National Cholesterol Education Program ATP III Guideline At-A-Glance Quick Desk Reference: National Heart, Lung, and Blood Bradley. National Institutes of Health. 2001:NIH Publication No. 01-3305.2. An International Atherosclerosis Society position paper: global recommendations for the management of dyslipidemia: executive summary, Atherosclerosis. 2014: 232(2):410-413.Performed By: #### 57629-7, 2275-10 ####[facility] LABCLIA [id number] [address]#### 77290-0 ####[facility] LABCLIA [id number] [place] [address] [facility] LABCLIA [id number] [place], [place] [address]Huhmrgskjiq in VLDL [Mass/Vol]32 mg/dLHigh<30[facility] on above:Order Comment: Specimen Type: BLOOD SPECIMENOrdering Facility: External Submitter Address: , ,Performed By: #### 03696-8, 2275-10 ####[facility] LABCLIA [id number] [address]#### 43174-1 ####[facility] LABCLIA [id number] [address] LABCLIA [id number] [place], [place] [address]Kstwanfqsey non HDL [Mass/Vol] 155 mg/dLHigh<130[facility] on above:Order Comment: Specimen Type: BLOOD SPECIMENOrdering Facility: External Submitter Address: , , Result Comment: <130 mg/dL, Optimal 130-159 mg/dL, Near optimal/above optimal 160-189 mg/dL, Borderline high 190-219 mg/dL, High>219 mg/dL, Very highSecondary prevention optimal non HDL Cholesterol levels are recommended to be <100 mg/dL Performed By: #### 66324-1, 2275-10 ####[facility] LABCLIA [id number] [place] [address] [place]#### 02793-3 ####[facility] LABCLIA [id number] [place] [address] [facility] LABCLIA [id number] [place], [place] [address]Pwvurivwigs.total/Cholesterol in HDL [Mass ratio]4.78 {ratio}Normal<5.10[facility] on above:Order Comment: Specimen Type: BLOOD SPECIMENOrdering Facility: External Submitter Address: , ,Performed By: #### 55016-8, 2275-10 ####[facility] LABCLIA [id number] [place] [address] [place]#### 90872-8 ####[facility] LABCLIA [id number] [address] LABCLIA [id number] [place], [place] [address]RVXZSAX TIME5 hrsNormalCHenry County Hospital on above:Order Comment: Specimen Type: BLOOD SPECIMENOrdering Facility: External Submitter Address: , ,Result Comment: cup of coffee with creamer only had 4-5 sipsPerformed By: #### 36774-8, 2275-10 ####[facility] LABCLIA [id number] [place] [address] [place]#### 99172-3 ####[facility] LABCLIA [id number] [address] LABCLIA [id number] [place], [place] [address]Vpyisuolxorl [Mass/Vol]184 mg/dLHigh<150[facility] on above:Order Comment: Specimen Type: BLOOD SPECIMENOrdering Facility: External Submitter Address: , ,Result Comment: <150 mg/dL, Normal 150- 199 mg/dL, Borderline high 200-499 mg/dL, High>499 mg/dL, Very highPerformed By: #### 94880-8, 2275-10 ####[facility] LABCLIA [id number] [place] [address] [place]#### 94519-4 ####[facility] LABCLIA [id number] [address] LABCLIA [id number] [place], [place] [address]Mxr B12 SerPl-mCncon 13-86-0256Kmryuqicx (Vitamin B12) [Mass/Vol]668 pg/dTHrlzds874-8845FrtgdxcbfHenry County Hospital on above:Order Comment: Specimen Type: BLOOD SPECIMENOrdering Facility: [facility] Address:[address] [place], [place] [address]Performed By: #### 2284-8, 2132-9 ####[facility] LABCLIA [id number] [place] [address] [place] AMERICACNPNon 30-03-1261LFKFAtylnh [facility] W Auto Differential panel (Bld)on 04-25-2025 Basophils (Bld) [#/Vol]10*3/uLNormal<0.11CHenry County Hospital on above:Order Comment: Specimen Type: BLOOD SPECIMENOrdering Facility: [facility] Address:[address] [place], [place] [address]Performed By: #### 94552-9 ####[facility] LABCLIA [id number] [place], [place] [address]Rhdanrnoi/100 WBC (Bld)0.4 %NormalTrinity Health System on above:Order Comment: Specimen Type: BLOOD SPECIMENOrdering Facility: [facility] Address:[address] [place], [place] [address]Performed By: #### 92301-1 ####[facility] LABCLIA [id number] [place], [place] [address]Ewyunwljmlcq cell count method Nom (Bld)AutoNormalCHenry County Hospital on above:Order Comment: Specimen Type: BLOOD SPECIMENOrdering Facility: [facility] Address:[address] [place], [place] [address]Performed By: #### 10399-8 ####[facility] LABCLIA [id number] [place], [place] [address]Zvuzlqyzfnt (Bld) [#/Vol]0.03 10*3/uLNormal<0.46[facility] on above:Order Comment: Specimen Type: BLOOD SPECIMENOrdering Facility: [facility] Address:[address] [place], [place] [address]Performed By: #### 71426-5 ####[facility] LABCLIA [id number] [place], [place] [address]Boimfwnjfzy/100 WBC (Bld)0.6 %[facility] on above:Order Comment: Specimen Type: BLOOD SPECIMENOrdering Facility: [facility] Address:[address] [place], [place] [address]Performed By: #### 41394-6 ####[facility] LABCLIA [id number] [place], [place] [address]Hodouwxercc distribution width (RBC) [Ratio]14.9 %Normal 11.5-15.0[facility] on above:Order Comment: Specimen Type: BLOOD SPECIMENOrdering Facility: [facility] Address:[address] [place], [place] [address]Performed By: #### 04758-9 ####[facility] LABCLIA [id number] [place] [address] Hematocrit (Bld) [Volume fraction]34.9 %Low36.0-46.0[facility] Comment on above:Order Comment: Specimen Type: BLOOD SPECIMENOrdering Facility: [facility] Address:[address] [place] [address] Performed By: #### 34875-0 ####[facility] LABIA [id number] [place], [place] [address]Xkzlyizqcv (Bld) [Mass/Vol]10.9 g/dLLow11.5-15.5CHenry County Hospital on above:Order Comment: Specimen Type: BLOOD SPECIMENOrdering Facility: [facility] Address:[address] [place], [place] [address]Performed By: #### 90571-9 ####[facility] LABIA [id number] [place], [place] [address]Dwmctbmw granulocytes (Bld) [#/Vol]10*3/uLNormal<0.10 [facility] on above:Order Comment: Specimen Type: BLOOD SPECIMENOrdering Facility: [facility] Address:[address] [place], [place] [address]Performed By: #### 09806-7 ####[facility] LABIA [id number] [place], [place] [address]Goxwmkvv granulocytes/100 WBC (Bld)0.2 %NormalTrinity Health System on above: Order Comment: Specimen Type: BLOOD SPECIMENOrdering Facility: [facility] Address:[address] [place], [place] [address]Performed By: #### 83633- 8 ####[facility] LABCLIA [id number] [place], [place] [address]Vgvqfperxme (Bld) [#/Vol]1.52 10*3/uLNormal1.00-4.00 [facility] on above:Order Comment: Specimen Type: BLOOD SPECIMENOrdering Facility: [facility] Address:[address] [place], [place] [address]Performed By: #### 57640-6 ####[facility] LABCLIA [id number] [place], [place] [address]Eqoxgpdwqbu/100 WBC (Bld)32.4 %NormalTrinity Health System on above:Order Comment: Specimen Type: BLOOD SPECIMENOrdering Facility: [facility] Address:[address] [place], [place] [address]Performed By: #### 10662-1 ####[facility] LABCLIA [id number] [place], [place] [address]DTC (RBC) [Entitic mass]31.3 tnAmohfp54.0-34.0[facility] on above:Order Comment: Specimen Type: BLOOD SPECIMENOrdering Facility: [facility] Address:[address] [place], [place] [address]Performed By: #### 70989-8 ####[facility] LABCLIA [id number] [place], [place] [address]ZPLT (RBC) [Mass/Vol]31.2 g/iADfnrjt85.5-36.0[facility] on above: Order Comment: Specimen Type: BLOOD SPECIMENOrdering Facility: [facility] Address:[address] [place], [place] [address]Performed By: #### 45819- 8 ####[facility] LABIA [id number] [place], [place] [address]AUB (RBC) [Entitic vol]100.3 pFMmwh34.0-100.0[facility] on above:Order Comment: Specimen Type: BLOOD SPECIMENOrdering Facility: [facility] Address:[address] [place], [place] [address]Performed By: #### 86225-1 ####[facility] LABCLIA [id number] [place], [place] [address]Afcpmkaqt (Bld) [#/Vol]0.21 10*3/uLNormal<0.87[facility] on above:Order Comment: Specimen Type: BLOOD SPECIMENOrdering Facility: [facility] Address:[address] [place], [place] [address]Performed By: #### 46586- 8 ####[facility] LABCLIA [id number] [place], [place] [address]Dfzhmjeyo/100 WBC (Bld)4.5 %NormalTrinity Health System on above:Order Comment: Specimen Type: BLOOD SPECIMENOrdering Facility: [facility] Address:[address] [place], [place] [address]Performed By: #### 54342-9 ####[facility] LABCLIA [id number] [place], [place] [address]Khrgacxgkcz (Bld) [#/Vol]2.90 10*3/uLNormal1.45-7.50[facility] on above:Order Comment: Specimen Type: BLOOD SPECIMENOrdering Facility: [facility] Address:[address] [place], [place] [address]Performed By: #### 17965-6 ####[facility] LABCLIA [id number] [place], [place] [address]Ferowwfvkqg/100 WBC (Bld)61.9 %NormalTrinity Health System on above:Order Comment: Specimen Type: BLOOD SPECIMENOrdering Facility: [facility] Address:[address] [place], [place] [address]Performed By: #### 02160-7 ####[facility] LABCLIA [id number] [place], [place] [address]Opmtolkcg RBC (Bld) [#/Vol] 10*3/uLNormal<0.01[facility] on above:Order Comment: Specimen Type: BLOOD SPECIMENOrdering Facility: [facility] Address:[address] [place], [place] [address]Performed By: #### 91149-0 ####[facility] LABCLIA [id number] [place], [place] [address]Ezlpfyqev RBC/100 WBC (Bld) [Ratio]0.0 /100 WBCNormal [facility] on above:Order Comment: Specimen Type: BLOOD SPECIMENOrdering Facility: [facility] Address:[address] [place], [place] [address]Performed By: #### 91269-3 ####[facility] LABIA [id number] [place], [place] [address]Dlozheib mean volume (Bld) [Entitic vol]9.5 fLNormal9.0-12.7CHenry County Hospital on above:Order Comment: Specimen Type: BLOOD SPECIMENOrdering Facility: [facility] Address:[address] [place] [address] Performed By: #### 12892-9 ####[facility] LABIA [id number] [place], [place] [address]Dreroarui (Bld) [#/Vol]162 10*3/nDEmnqoa354-575LwuvkmtmpTrinity Health System on above:Order Comment: Specimen Type: BLOOD SPECIMENOrdering Facility: [facility] Address:[address] [place], [place] [address]Performed By: #### 18607-9 ####[facility] LABCLIA [id number] [place], [place] [address]GOC (Bld) [#/Vol]3.48 10*6/uLLow3.90-5.20[facility] on above:Order Comment: Specimen Type: BLOOD SPECIMENOrdering Facility: [facility] Address:[address] [place], [place] [address]Performed By: #### 47892-3 ####[facility] LABCLIA [id number] [place], [place] [address]BST (Bld) [#/Vol]4.69 10*3/uL Normal3.70-11.00[facility] on above:Order Comment: Specimen Type: BLOOD SPECIMENOrdering Facility: [facility] Address:[address] [place], [place] [address]Performed By: #### 13888-1 ####[facility] LABCLIA [id number] [place], [place] [address]Tqbyqovsmwo distribution width Auto (RBC) [Ratio]Ordered By: Gilson Arriola on 68-09-1802Yvnwmbhtedd distribution width (RBC) [Ratio]14.8 % 11.0-15.0Parkwood HospitalGlomerular filtration rate (GFR) estimation in non- AmericanOrdered By: Gilson Arriola on 30-50-2918MCF/1.73 sq M.predicted among non-blacks MDRD (S/P/Bld) [Vol rate/Area]54 mL/min/{1.73_m2}Low>=60 mL/min/1.73m [address] [place] [address] Hematocrit Auto (Bld) [Volume fraction]Ordered By: Gilson Arriola on 04-23-2025 Hematocrit (Bld) [Volume fraction]35.3 %Low36.0-48.0[facility]wood HospitalHemoglobin [Mass/volume] in BloodOrdered By: Gilson Arriola on 04-23-2025 Hemoglobin (Bld) [Mass/Vol]11.2 g/dLLow12.0-16.0[facility] HospitalIron binding capacity [Mass/volume] in Serum or PlasmaOrdered By: Gilson Arriola on 30-25-9625Ebwn binding capacity [Mass/Vol]344.0 ug/dL250.0-450.0 Park[facility] HospitalIron saturation [Mass Fraction] in Serum or PlasmaOrdered By: Gilson Arriola on 78-58-3608Ayxp saturation [Mass fraction]20.3 % [facility] HospitalLaboratory - Chemistry and Chemistry - challengeOrdered By: Gilson Arriola on 27-88-6344Ytqjgqq [Mass/Vol]3.3 g/dLLow 3.4-5.0[facility] HospitalCalcium [Mass/Vol]9.1 mg/dL8.5-10.1 [facility] HospitalChloride [Moles/Vol]104 mmol/H77-649JndgkbjqqParkwood HospitalCO2 [Moles/Vol]28.5 mmol/L21.0-32.0[facility] HospitalCreatinine [Mass/Vol]1.01 mg/dL0.55-1.02[facility] HospitalFerritin [Mass/Vol]71.0 ng/mL8.0-252.0[facility] GFR/1.73 sq M.predicted MDRD (S/P/Bld) [Vol rate/Area]mL/min/{1.73_m2}>=60 mL/min/1.73m 2FBerger HospitalGlucose [Mass/Vol]99 mg/iB86-368 [facility] HospitalIron [Mass/Vol]70.0 ug/dL50.0-170.0[facility] HospitalMagnesium [Mass/Vol]2.4 mg/dL1.8-2.4FBerger HospitalPotassium [Moles/Vol]4.5 mmol/L3.5-5.1FTrinity Health System West Campusodium [Moles/Vol]140 mmol/Q091-834FufkltwuaParkwood HospitalUrate [Mass/Vol]6.0 mg/dL2.6-6.0[facility] HospitalUrea nitrogen [Mass/Vol]28.0 mg/dLHigh7.0-18.0[facility] HospitalUrea nitrogen/Creatinine [Mass ratio]27.7 mg/mgParkwood Hospital Bilirubin Ql (U)NegativeNEGATIVEParkwood HospitalGlucose (U) [Mass/Vol]NegativeNEGATIVEParkwood HospitalKetones Ql (U) NegativeNEGGreene Memorial HospitalpH (U)6.0 [pH]5.0-9.0[facility] Systempecific gravity (U) [Rel density]1.0201.005-1.025 [facility] HospitalUrobilinogen Qn (U)1.0 {Hao'U}/dL0.2-1.0 [facility] HospitalLaboratory - Specimen informationOrdered By: Gilson Arriola on [id number] (U)CLEARCLEARFBerger HospitalColor (U)LT. YELLOWYELLOWParkwood HospitalLaboratory - UrinalysisOrdered By: Gilson Arriola on [id number] esterase Test strip Ql (U)NegativeNEGGreene Memorial HospitalMucus Ql (Urine sed)NONE SEENNONE SEENParkwood HospitalNitrite Ql (U)NegativeNEGATIVE Parkwood HospitalProtein (U) [Mass/Vol]18.9 mg/dLHigh<=11.9 [facility] HospitalProtein Ql (U)NegativeNEG/TRACEParkwood HospitalLeukocytes [#/volume] corrected for nucleated erythrocytes in Blood by Automated counOrdered By: Gilson Arriola on 25-28-3793GZW corrected for nucl RBC Auto (Bld) [#/Vol]5.1 10 3/uL4.0-11.0[facility] HospitalH Auto (RBC) [Entitic mass]Ordered By: Gilson Arriola on 04-23-2025 MCH (RBC) [Entitic mass]31.7 pg26.7-34.0Parkwood HospitalMCHC Auto (RBC) [Mass/Vol]Ordered By: Gilson Arriola on 46-40-3395KNGX (RBC) [Mass/Vol] 31.7 g/dL29.9-35.2FBerger HospitalMCV Auto (RBC) [Entitic vol] Ordered By: Gilson Arriola on 84-53-9350EZW (RBC) [Entitic vol]100.0 fLHigh 81.0-99.0Parkwood HospitalNo Panel InformationOrdered By: Gilson Arriola on 537903-Oupkykv Vitamin D Total34.1 ng/mLParkwood HospitalComment on above:<20 ng/mL Vit D -<30 ng/mL Vit D wiymgefwmftf73-480 ng/mL Vit D sufficient>100 ng/mL Potential Toxicity Parathyroid Hormone (Intact)72 pg/jMJmocqkpf91-63CkzuikqauParkwood HospitalComment on above:Performed at: - [facility] [id number] Director: Danilo Garrett PhD, Phone: [phone] Phosphorus Level3.0 mg/dL2.6-4.7FBerger HospitalUrine Bacteria TRACE #/HPFAbnormalNONE [facility] HospitalUrine Occult Blood TRACE-INEOhioHealth Shelby HospitalUrine Other CastsNONE SEEN #/LPF NONE [facility] HospitalUrine Other CrystalsNone Seen #/HPF None [facility] CenterUrine Random Nrolkigmck965.00 mg/dL 20.00-300.00Parkwood HospitalUrine RBC0-2 #/HPF0-2FBerger HospitalUrine Squamous Epithelial CellsFEW #/LPFAbnormalNONE/RARE [facility] HospitalUrine WBC0-2 #/HPFAbnormalNONE [facility] HospitalPlatelet mean volume Auto (Bld) [Entitic vol]Ordered By: Gilson Arriola on 64-47-1332Oxgaunyn mean volume (Bld) [Entitic vol]9.3 fLLow 9.5-13.5FBerger HospitalPlatelets Auto (Bld) [#/Vol]Ordered By: Gilson Arriola on 73-91-0615Kpuahquix (Bld) [#/Vol]168 10 3/xE477-204KsegkajgqParkwood HospitalRBC Auto (Bld) [#/Vol]Ordered By: Gilson Arriola on 87-24-7594BSG (Bld) [#/Vol]3.53 10 6/uLLow4.20-5.40[facility] Systemerum or plasma anion gap determinationOrdered By: Gilson Arriola on 46-51-8694Wmnwn gap [Moles/Vol]12.0 mmol/LFBerger HospitalUrine protein/creatinine ratioOrdered By: Gilson Arriola on 25-70-5961Qbktpls/Creatinine (U) [Ratio]0.18FBerger HospitalCBC W Auto Differential panel (Bld)on 69-16-3342Sbmzemlhv (Bld) [#/Vol]10*3/uLNormal<0.11CTriHealthComment on above:Order Comment: Specimen Type: BLOOD SPECIMENOrdering Facility: [facility] Address:[address] [place], [place] [address]Performed By: #### 04608-4 ####[facility] LABCLIA [id number] [place], [place] [address]Mnducyjfx/100 WBC (Bld)0.4 % NormalTrinity Health System on above:Order Comment: Specimen Type: BLOOD SPECIMENOrdering Facility: [facility] Address:[address] [place], [place] [address]Performed By: #### 09083-2 ####[facility] LABCLIA [id number] [place] [address] Differential cell count method Nom (Bld)AutoNormalCTriHealth Comment on above:Order Comment: Specimen Type: BLOOD SPECIMENOrdering Facility: [facility] Address:[address] [place] [address] Performed By: #### 13463-1 ####[facility] LABCLIA [id number] [place], [place] [address]Nbktivhdmjb (Bld) [#/Vol]0.05 10*3/uLNormal<0.46[facility] on above:Order Comment: Specimen Type: BLOOD SPECIMENOrdering Facility: [facility] Address:[address] [place], [place] [address]Performed By: #### 04291-6 ####[facility] LABCLIA [id number] [place], [place] [address]Zkomnnlpsay/100 WBC (Bld)0.9 %NormalTrinity Health System on above:Order Comment: Specimen Type: BLOOD SPECIMENOrdering Facility: [facility] Address:[address] [place], [place] [address]Performed By: #### 67094-4 ####[facility] LABCLIA [id number] [place], [place] [address]Aatcjsslils distribution width (RBC) [Ratio]14.4 %Cpvjlp27.5-15.0[facility] on above: Order Comment: Specimen Type: BLOOD SPECIMENOrdering Facility: [facility] Address:[address] [place], [place] [address]Performed By: #### 83660- 8 ####[facility] LABIA [id number] [place], [place] [address]Pwibxmllmf (Bld) [Volume fraction]33.5 %Low36.0-46.0 [facility] on above:Order Comment: Specimen Type: BLOOD SPECIMENOrdering Facility: [facility] Address:[address] [place], [place] [address]Performed By: #### 03868-2 ####[facility] LABIA [id number] [place], [place] [address]Pfmtzihhjh (Bld) [Mass/Vol]10.6 g/dLLow11.5-15.5CHenry County Hospital on above:Order Comment: Specimen Type: BLOOD SPECIMENOrdering Facility: [facility] Address:[address] [place], [place] [address]Performed By: #### 81768- 8 ####[facility] LABIA [id number] [place], [place] [address]Ahixnfyy granulocytes (Bld) [#/Vol]10*3/uLNormal<0.10 [facility] on above:Order Comment: Specimen Type: BLOOD SPECIMENOrdering Facility: [facility] Address:[address] [place], [place] [address]Performed By: #### 36377-9 ####[facility] LABIA [id number] [place], [place] [address]Ikinjsyg granulocytes/100 WBC (Bld)0.4 %NormalTrinity Health System on above: Order Comment: Specimen Type: BLOOD SPECIMENOrdering Facility: [facility] Address:[address] [place], [place] [address]Performed By: #### 68807- 8 ####[facility] LABCLIA [id number] [place], [place] [address]Uyyqvivzede (Bld) [#/Vol]2.61 10*3/uLNormal1.00-4.00 [facility] on above:Order Comment: Specimen Type: BLOOD SPECIMENOrdering Facility: [facility] Address:[address] [place], [place] [address]Performed By: #### 00926-1 ####[facility] LABIA [id number] [place], [place] [address]Efedzlvlcqn/100 WBC (Bld)46.3 %NormalTrinity Health System on above:Order Comment: Specimen Type: BLOOD SPECIMENOrdering Facility: [facility] Address:[address] [place], [place] [address]Performed By: #### 21485-3 ####[facility] LABIA [id number] [place], [place] [address]BKZ (RBC) [Entitic mass]30.9 goPnkepk76.0-34.0[facility] on above:Order Comment: Specimen Type: BLOOD SPECIMENOrdering Facility: [facility] Address:[address] [place], [place] [address]Performed By: #### 94445-8 ####[facility] LABIA [id number] [place], [place] [address]IWAE (RBC) [Mass/Vol]31.6 g/xDPixeee05.5-36.0[facility] on above: Order Comment: Specimen Type: BLOOD SPECIMENOrdering Facility: [facility] Address:[address] [place], [place] [address]Performed By: #### 10155- 8 ####[facility] LABCLIA [id number] [place], [place] [address]GMC (RBC) [Entitic vol]97.7 uGRoblmd07.0-100.0[facility] on above:Order Comment: Specimen Type: BLOOD SPECIMENOrdering Facility: [facility] Address:[address] [place], [place] [address]Performed By: #### 39771-3 ####[facility] LABCLIA [id number] [place], [place] [address]Qakjngoae (Bld) [#/Vol]0.30 10*3/uLNormal<0.87[facility] on above:Order Comment: Specimen Type: BLOOD SPECIMENOrdering Facility: [facility] Address:[address] [place], [place] [address]Performed By: #### 09132- 8 ####[facility] LABCLIA [id number] [place], [place] [address]Wkhelrnvl/100 WBC (Bld)5.3 %NormalTrinity Health System on above:Order Comment: Specimen Type: BLOOD SPECIMENOrdering Facility: [facility] Address:[address] [place], [place] [address]Performed By: #### 67334-9 ####[facility] LABCLIA [id number] [place], [place] [address]Iwfzwpmgybz (Bld) [#/Vol]2.64 10*3/uLNormal1.45-7.50[facility] on above:Order Comment: Specimen Type: BLOOD SPECIMENOrdering Facility: [facility] Address:[address] [place], [place] [address]Performed By: #### 57328-1 ####[facility] LABCLIA [id number] [place], [place] [address]Wuwhovjehev/100 WBC (Bld)46.7 %NormalTrinity Health System on above:Order Comment: Specimen Type: BLOOD SPECIMENOrdering Facility: [facility] Address:[address] [place], [place] [address]Performed By: #### 81412-5 ####[facility] LABCLIA [id number] [place], [place] [address]Gducgavwa RBC (Bld) [#/Vol] 10*3/uLNormal<0.01[facility] on above:Order Comment: Specimen Type: BLOOD SPECIMENOrdering Facility: [facility] Address:[address] [place], [place] [address]Performed By: #### 49847-5 ####[facility] LABIA [id number] [place], [place] [address]Ekkljayho RBC/100 WBC (Bld) [Ratio]0.0 /100 WBCNormal [facility] on above:Order Comment: Specimen Type: BLOOD SPECIMENOrdering Facility: [facility] Address:[address] [place], [place] [address]Performed By: #### 20975-5 ####[facility] LABIA [id number] [place], [place] [address]Pwlecknh mean volume (Bld) [Entitic vol]9.1 fLNormal9.0-12.7CHenry County Hospital on above:Order Comment: Specimen Type: BLOOD SPECIMENOrdering Facility: [facility] Address:[address] [place] [address] Performed By: #### 68117-9 ####[facility] LABIA [id number] [place], [place] [address]Ovjxljzkg (Bld) [#/Vol]168 10*3/pGFtvqte445-472PmcymhbriTrinity Health System on above:Order Comment: Specimen Type: BLOOD SPECIMENOrdering Facility: [facility] Address:[address] [place], [place] [address]Performed By: #### 75429-3 ####[facility] LABCLIA [id number] [place], [place] [address]TOK (Bld) [#/Vol]3.43 10*6/uLLow3.90-5.20[facility] on above:Order Comment: Specimen Type: BLOOD SPECIMENOrdering Facility: [facility] Address:[address] [place], [place] [address]Performed By: #### 96441-1 ####[facility]PITALIA [id number] [place], [place] [address]TJV (Bld) [#/Vol]5.64 10*3/uL Normal3.70-11.00[facility] on above:Order Comment: Specimen Type: BLOOD SPECIMENOrdering Facility: [facility] Address:[address] [place], [place] [address]Performed By: #### 72952-5 ####[facility] LABIA [id number] [place], [place] [address]KGW W Auto Differential panel (Bld)on 93-57-9969Jkwzlubhp (Bld) [#/Vol]10*3/uLNormal<0.11CHenry County Hospital on above:Order Comment: Specimen Type: BLOOD SPECIMENOrdering Facility: [facility] Address:[address] [place], [place] [address]Performed By: #### 01492- 8 ####[facility] LABIA [id number] [place], [place] [address]Dgacdazkm/100 WBC (Bld)0.2 %NormalTrinity Health System on above:Order Comment: Specimen Type: BLOOD SPECIMENOrdering Facility: [facility] Address:[address] [place], [place] [address]Performed By: #### 16525-0 ####[facility] LABIA [id number] [place], [place] [address]Wrjneaifqdeu cell count method Nom (Bld)AutoNormalCHenry County Hospital on above:Order Comment: Specimen Type: BLOOD SPECIMENOrdering Facility: [facility] Address:[address] [place], [place] [address]Performed By: #### 16737-3 ####[facility] LABCLIA [id number] [place], [place] [address]Fqncshaltjv (Bld) [#/Vol]0.13 10*3/uLNormal<0.46[facility] on above:Order Comment: Specimen Type: BLOOD SPECIMENOrdering Facility: [facility] Address:[address] [place], [place] [address]Performed By: #### 32538-2 ####[facility] LABIA [id number] [place], [place] [address]Uxrxkdsxhbk/100 WBC (Bld)2.6 %NormalTrinity Health System on above:Order Comment: Specimen Type: BLOOD SPECIMENOrdering Facility: [facility] Address:[address] [place], [place] [address]Performed By: #### 07478-5 ####[facility] LABCLIA [id number] [place], [place] [address]Pzidkouatrt distribution width (RBC) [Ratio]13.6 %Normal 11.5-15.0[facility] on above:Order Comment: Specimen Type: BLOOD SPECIMENOrdering Facility: [facility] Address:[address] [place], [place] [address]Performed By: #### 89771-3 ####[facility] LABIA [id number] [place] [address] Hematocrit (Bld) [Volume fraction]33.5 %Low36.0-46.0[facility] Comment on above:Order Comment: Specimen Type: BLOOD SPECIMENOrdering Facility: [facility] Address:[address] [place] [address] Performed By: #### 88766-4 ####[facility] LABCLIA [id number] [place], [place] [address]Nmjefycoeu (Bld) [Mass/Vol]10.7 g/dLLow11.5-15.5CHenry County Hospital on above:Order Comment: Specimen Type: BLOOD SPECIMENOrdering Facility: [facility] Address:[address] [place], [place] [address]Performed By: #### 13024-6 ####[facility] LABCLIA [id number] [place], [place] [address]Nqllhjlc granulocytes (Bld) [#/Vol]10*3/uLNormal<0.10 [facility] on above:Order Comment: Specimen Type: BLOOD SPECIMENOrdering Facility: [facility] Address:[address] [place], [place] [address]Performed By: #### 50966-2 ####[facility] LABIA [id number] [place], [place] [address]Orlqlmio granulocytes/100 WBC (Bld)0.2 %NormalTrinity Health System on above: Order Comment: Specimen Type: BLOOD SPECIMENOrdering Facility: [facility] Address:[address] [place], [place] [address]Performed By: #### 65768- 8 ####[facility] LABCLIA [id number] [place], [place] [address]Jlwyaxqmqkj (Bld) [#/Vol]1.97 10*3/uLNormal1.00-4.00 [facility] on above:Order Comment: Specimen Type: BLOOD SPECIMENOrdering Facility: [facility] Address:[address] [place], [place] [address]Performed By: #### 54697-2 ####[facility] LABCLIA [id number] [place], [place] [address]Fkyvfopqvxc/100 WBC (Bld)39.2 %NormalTrinity Health System on above:Order Comment: Specimen Type: BLOOD SPECIMENOrdering Facility: [facility] Address:[address] [place], [place] [address]Performed By: #### 81502-9 ####[facility] LABCLIA [id number] [place], [place] [address]KYL (RBC) [Entitic mass]31.9 ifVqfnmx75.0-34.0[facility] on above:Order Comment: Specimen Type: BLOOD SPECIMENOrdering Facility: [facility] Address:[address] [place], [place] [address]Performed By: #### 41768-5 ####[facility] LABIA [id number] [place], [place] [address]SAIM (RBC) [Mass/Vol]31.9 g/wTOiwshr02.5-36.0[facility] on above: Order Comment: Specimen Type: BLOOD SPECIMENOrdering Facility: [facility] Address:[address] [place], [place] [address]Performed By: #### 60928- 8 ####[facility] LABCLIA [id number] [place], [place] [address]FKV (RBC) [Entitic vol]100.0 yXAujhwf88.0-100.0[facility] on above:Order Comment: Specimen Type: BLOOD SPECIMENOrdering Facility: [facility] Address:[address] [place], [place] [address]Performed By: #### 80188-8 ####[facility] LABIA [id number] [place], [place] [address]Cwuhderkf (Bld) [#/Vol]0.31 10*3/uLNormal<0.87[facility] on above:Order Comment: Specimen Type: BLOOD SPECIMENOrdering Facility: [facility] Address:[address] [place], [place] [address]Performed By: #### 05135- 8 ####[facility] LABCLIA [id number] [place], [place] [address]Oeukfivkk/100 WBC (Bld)6.2 %NormalTrinity Health System on above:Order Comment: Specimen Type: BLOOD SPECIMENOrdering Facility: [facility] Address:[address] [place], [place] [address]Performed By: #### 43786-3 ####[facility] LABCLIA [id number] [place], [place] [address]Hpphwosjxgm (Bld) [#/Vol]2.60 10*3/uLNormal1.45-7.50[facility] on above:Order Comment: Specimen Type: BLOOD SPECIMENOrdering Facility: [facility] Address:[address] [place], [place] [address]Performed By: #### 78881-6 ####[facility] LABCLIA [id number] [place], [place] [address]Orvdttxrlvz/100 WBC (Bld)51.6 %NormalTrinity Health System on above:Order Comment: Specimen Type: BLOOD SPECIMENOrdering Facility: [facility] Address:[address] [place], [place] [address]Performed By: #### 13593-4 ####[facility] LABIA [id number] [place], [place] [address]Ugcvxwuaj RBC (Bld) [#/Vol] 10*3/uLNormal<0.01[facility] on above:Order Comment: Specimen Type: BLOOD SPECIMENOrdering Facility: [facility] Address:[address] [place], [place] [address]Performed By: #### 88037-7 ####[facility] LABCLIA [id number] [place], [place] [address]Zmkzrfncq RBC/100 WBC (Bld) [Ratio]0.0 /100 WBCNormal [facility] on above:Order Comment: Specimen Type: BLOOD SPECIMENOrdering Facility: [facility] Address:[address] [place], [place] [address]Performed By: #### 60923-4 ####[facility] LABCLIA [id number] [place], [place] [address]Uztgpvaf mean volume (Bld) [Entitic vol]9.7 fLNormal9.0-12.7CHenry County Hospital on above:Order Comment: Specimen Type: BLOOD SPECIMENOrdering Facility: [facility] Address:[address] [place] [address] Performed By: #### 80937-3 ####[facility] LABCLIA [id number] [place], [place] [address]Thiddcptt (Bld) [#/Vol]141 10*3/iSAgp087-341VrbgvmxrsTrinity Health System on above:Order Comment: Specimen Type: BLOOD SPECIMENOrdering Facility: [facility] Address:[address] [place], [place] [address]Performed By: #### 06732-4 ####[facility] LABCLIA [id number] [place], [place] [address]HHJ (Bld) [#/Vol]3.35 10*6/uLLow3.90-5.20[facility] on above:Order Comment: Specimen Type: BLOOD SPECIMENOrdering Facility: [facility] Address:[address] [place], [place] [address]Performed By: #### 59423-9 ####[facility] LABCLIA [id number] [place], [place] [address]WHN (Bld) [#/Vol]5.03 10*3/uL Normal3.70-11.00[facility] HospitalCommunson medical center on above:Order Comment: Specimen Type: BLOOD SPECIMENOrdering Facility: [facility] Address:[address] [place], [place] [address]Giqzscnoq By: #### 62945-5 ####[facility] LABCLIA [id number] [place], [place] [address]BAHOVGzj 03-33-8701WWFOVSTsygfgYwqwdmrlq [facility] [place] Thyroid glandon 58-01-1051[place] [id number] Ultrasound Report Signed Patient: ANDREI FISH MR#: [id number] : 1950 Acct:[id number] Age/Sex: 74 / F ADM Date: 03/19/25 Loc: US Attending Dr: Mar Mayo M.D. Ordering Physician: Mar Mayo M.D. Date of Service: 03/19/25 Procedure(s): US thyroid Accession Number(s): [id number] cc: Stephanie Dumont STRAP CUTTING MACHINE OPERATOR; Mar Mayo M.D. [address] [address] Patient Name: ANDREI FISH MRN: [facility]:[id number] date: 1950 Sex: F Assigned Patient Location: US Current Patient Location: US Accession/Order Number: [id number] Exam Date: 03/19/2025 11:12 Report Date: 03/19/2025 [...] Savage M.D. 03/19/2025 11:54 AM Dictation Location: [place] [address] Electronically authenticated by: [id number] Y Date: 03/19/2025 11:54 Dictated By: Doris Savage M.D. Signed By: 03/19/25 1156 DD/ 1154 TD/TT: Marketing Services Rep:TBHRadiology, Radiologist, - 03/19/2025 [place] [address] Ultrasound Report Signed Patient: ANDREI FISH MR#: [id number] : 1950 Acct:[id number] Age/Sex: 74 / F ADM Date: 03/19/25 Loc: US Attending Dr: Mar Mayo M.D. Ordering Physician: Mar Mayo M.D. Date of Service: 03/19/25 Procedure(s): US thyroid Accession Number(s): [id number] cc: Stephanie Dumont NP; Mar Mayo M.D. The [address] [address] Patient Name: ANDREI FISH MRN: [facility]:[id number] date: 1950 Sex: F Assigned Patient Location: Current Patient Location: Accession/Order Number: [id number] Exam Date: 03/19/2025 11:12 Report Date: 03/19/2025 [...] Savage M.D. 03/19/2025 11:54 AM Dictation Location: [place] [address] Electronically authenticated by: [id number] Y Date: 03/19/2025 11:54 Dictated By: Doris Savage M.D. Signed By: 03/19/25 1156 DD/ 1154 TD/TT: Marketing Services Rep: [facility] HealthcareRadiology Study observation (narrative)[facility] HealthcareUS Thyroid glandOrdered By: Radiologist Radiology on 01-04-7134[employer] Work Phone: CBC W Auto Differential panel (Bld)on 03-14-2025 Basophils (Bld) [#/Vol]10*3/uLNormal<0.11CHenry County Hospital on above:Order Comment: Specimen Type: BLOOD SPECIMENOrdering Facility: [facility] Address:[address] [place], [place] [address]Performed By: #### 84989-2 ####[facility] LABCLIA [id number] [place], [place] [address]Qmasdeurx/100 WBC (Bld)0.3 %NormalTrinity Health System on above:Order Comment: Specimen Type: BLOOD SPECIMENOrdering Facility: [facility] Address:[address] [place], [place] [address]Performed By: #### 60373-2 ####[facility] LABCLIA [id number] [place], [place] [address]Xzogudxpkrsc cell count method Nom (Bld)AutoNormalCHenry County Hospital on above:Order Comment: Specimen Type: BLOOD SPECIMENOrdering Facility: [facility] Address:[address] [place], [place] [address]Performed By: #### 38916-4 ####[facility] LABCLIA [id number] [place], [place] [address]Ukxnucsxhft (Bld) [#/Vol]0.08 10*3/uLNormal<0.46[facility] on above:Order Comment: Specimen Type: BLOOD SPECIMENOrdering Facility: [facility] Address:[address] [place], [place] [address]Performed By: #### 72695-0 ####[facility] LABCLIA [id number] [place], [place] [address]Rdjbofhheuj/100 WBC (Bld)1.3 %[facility] on above:Order Comment: Specimen Type: BLOOD SPECIMENOrdering Facility: [facility] Address:[address] [place], [place] [address]Performed By: #### 18224-4 ####[facility] LABCLIA [id number] [place], [place] [address]Hxqlaxdmxbq distribution width (RBC) [Ratio]13.9 %Normal 11.5-15.0[facility] on above:Order Comment: Specimen Type: BLOOD SPECIMENOrdering Facility: [facility] Address:[address] [place], [place] [address]Performed By: #### 95736-5 ####[facility] LABIA [id number] [place] [address] Hematocrit (Bld) [Volume fraction]36.1 %Kqquhr84.0-46.0[facility] on above:Order Comment: Specimen Type: BLOOD SPECIMENOrdering Facility: [facility] Address:[address] [place], [place] [address]Performed By: #### 96501-8 ####[facility] LABIA [id number] [place], [place] [address]Huqagsahpt (Bld) [Mass/Vol]11.2 g/dLLow11.5-15.5CHenry County Hospital on above:Order Comment: Specimen Type: BLOOD SPECIMENOrdering Facility: [facility] Address:[address] [place], [place] [address]Performed By: #### 13683-3 ####[facility] LABIA [id number] [place], [place] [address]Qbjqrqgd granulocytes (Bld) [#/Vol]0.03 10*3/uLNormal <0.10[facility] on above:Order Comment: Specimen Type: BLOOD SPECIMENOrdering Facility: [facility] Address:[address] [place], [place] [address]Performed By: #### 97670-4 ####[facility] LABIA [id number] [place], [place] [address]Nqehqsrr granulocytes/100 WBC (Bld)0.5 %NormalTrinity Health System on above: Order Comment: Specimen Type: BLOOD SPECIMENOrdering Facility: [facility] Address:[address] [place], [place] [address]Performed By: #### [id number]- 8 ####[facility] LABCLIA [id number] [place], [place] [address]Mkzvzofwxsz (Bld) [#/Vol]2.39 10*3/uLNormal1.00-4.00 [facility] on above:Order Comment: Specimen Type: BLOOD SPECIMENOrdering Facility: [facility] Address:[address] [place], [place] [address]Performed By: #### 37363-8 ####[facility] LABCLIA [id number] [place], [place] [address]Wquuwxchbjp/100 WBC (Bld)40.1 %NormalTrinity Health System on above:Order Comment: Specimen Type: BLOOD SPECIMENOrdering Facility: [facility] Address:[address] [place], [place] [address]Performed By: #### 18404-2 ####[facility] LABCLIA [id number] [place], [place] [address]SPZ (RBC) [Entitic mass]31.1 pbPebwzt14.0-34.0[facility] on above:Order Comment: Specimen Type: BLOOD SPECIMENOrdering Facility: [facility] Address:[address] [place], [place] [address]Performed By: #### 00025-4 ####[facility] LABCLIA [id number] [place], [place] [address]ZJFL (RBC) [Mass/Vol]31.0 g/wBErrbmy61.5-36.0[facility] on above: Order Comment: Specimen Type: BLOOD SPECIMENOrdering Facility: [facility] Address:[address] [place], [place] [address]Performed By: #### 17029- 8 ####[facility] LABCLIA [id number] [place], [place] [address]FRH (RBC) [Entitic vol]100.3 rGDhyc93.0-100.0[facility] on above:Order Comment: Specimen Type: BLOOD SPECIMENOrdering Facility: [facility] Address:[address] [place], [place] [address]Performed By: #### 44141-7 ####[facility] LABCLIA [id number] [place], [place] [address]Etlkhslau (Bld) [#/Vol]0.23 10*3/uLNormal<0.87[facility] on above:Order Comment: Specimen Type: BLOOD SPECIMENOrdering Facility: [facility] Address:[address] [place], [place] [address]Performed By: #### 86526- 8 ####[facility] LABCLIA [id number] [place], [place] [address]Imipelelm/100 WBC (Bld)3.9 %NormalTrinity Health System on above:Order Comment: Specimen Type: BLOOD SPECIMENOrdering Facility: [facility] Address:[address] [place], [place] [address]Performed By: #### 57623-6 ####[facility] LABCLIA [id number] [place], [place] [address]Bpucvfvfwnr (Bld) [#/Vol]3.21 10*3/uLNormal1.45-7.50[facility] on above:Order Comment: Specimen Type: BLOOD SPECIMENOrdering Facility: [facility] Address:[address] [place], [place] [address]Performed By: #### 64017-3 ####[facility] LABCLIA [id number] [place], [place] [address]Joioetldpwm/100 WBC (Bld)53.9 %NormalTrinity Health System on above:Order Comment: Specimen Type: BLOOD SPECIMENOrdering Facility: [facility] Address:[address] [place], [place] [address]Performed By: #### 06609-5 ####[facility] LABCLIA [id number] [place], [place] [address]Bdglzylqy RBC (Bld) [#/Vol] 10*3/uLNormal<0.01[facility] on above:Order Comment: Specimen Type: BLOOD SPECIMENOrdering Facility: [facility] Address:[address] [place], [place] [address]Performed By: #### 59932-4 ####[facility] LABCLIA [id number] [place], [place] [address]Mbqigcywj RBC/100 WBC (Bld) [Ratio]0.0 /100 WBCNormal [facility] on above:Order Comment: Specimen Type: BLOOD SPECIMENOrdering Facility: [facility] Address:[address] [place], [place] [address]Performed By: #### 42384-4 ####[facility] LABCLIA [id number] [place], [place] [address]Fnmejjsc mean volume (Bld) [Entitic vol]9.4 fLNormal9.0-12.7CHenry County Hospital on above:Order Comment: Specimen Type: BLOOD SPECIMENOrdering Facility: [facility] Address:[address] [place] [address] Performed By: #### 38300-9 ####[facility] LABCLIA [id number] [place], [place] [address]Scuwlzljv (Bld) [#/Vol]194 10*3/gIFtzeme907-883ExwupepkdTrinity Health System on above:Order Comment: Specimen Type: BLOOD SPECIMENOrdering Facility: [facility] Address:[address] [place], [place] [address]Performed By: #### 70900-2 ####[facility] LABCLIA [id number] [place], [place] [address]XSU (Bld) [#/Vol]3.60 10*6/uLLow3.90-5.20[facility] on above:Order Comment: Specimen Type: BLOOD SPECIMENOrdering Facility: [facility] Address:[address] [place], [place] [address]Performed By: #### 12246-6 ####[facility] LABCLIA [id number] [place], [place] [address]OIF (Bld) [#/Vol]5.96 10*3/uL Normal3.70-11.00[facility] on above:Order Comment: Specimen Type: BLOOD SPECIMENOrdering Facility: [facility] Address:[address] [place], [place] [address]Performed By: #### 60249-2 ####[facility] LABCLIA [id number] [place], [place] [address]Tntpcjhnufgjm metabolic 2000 panelon 78-89-3521Nbuehyp [Mass/Vol]3.7 g/dLLow3.9-4.9CHenry County Hospital on above:Order Comment: Specimen Type: BLOOD SPECIMENOrdering Facility: [facility] Address:[address] [place], [place] [address]Performed By: #### 94629- 8 ####[facility] LABIA [id number] [address] [place] [address] [place] AMERICAALP [Catalytic activity/Vol]83 U/KGwmbxd87-568IbephdkxjTrinity Health System on above:Order Comment: Specimen Type: BLOOD SPECIMENOrdering Facility: [facility] Address:[address] [place], [place] [address]Performed By: #### 54171-3 ####[facility] LABIA [id number] [address] [place] [address] [place] AMERICAALT [Catalytic activity/Vol]16 U/LNormal7-38[facility] on above:Order Comment: Specimen Type: BLOOD SPECIMENOrdering Facility: [facility] Address:[address] [place], [place] [address]Performed By: #### 79433-6 ####[facility] LABCLIA [id number] [address] [place] [address] [place] AMERICAAnion gap [Moles/Vol]10 mmol/LNormal8-15[facility] on above:Order Comment: Specimen Type: BLOOD SPECIMENOrdering Facility: [facility] Address:[address] [place], [place] [address]Performed By: #### 09971-3 ####[facility] LABCLIA [id number] [address] [address] [place] AST [Catalytic activity/Vol]28 U/JTmpriz41-74UqaqisthvTrinity Health System on above:Order Comment: Specimen Type: BLOOD SPECIMENOrdering Facility: [facility] Address:[address] [place], [place] [address] Performed By: #### 22387-8 ####[facility] LABCLIA [id number] [address] [address] [place] Bilirubin [Mass/Vol]0.4 mg/dLNormal0.2-1.3CHenry County Hospital on above:Order Comment: Specimen Type: BLOOD SPECIMENOrdering Facility: [facility] Address:[address] [place], [place] [address]Performed By: #### 29786-7 ####[facility] LABCLIA [id number] [address] [address] [place] AMERICACalcium [Mass/Vol]9.3 mg/dLNormal8.5-10.2ClevelAvita Health System [facility] on above:Order Comment: Specimen Type: BLOOD SPECIMENOrdering Facility: [facility] Address:[address] [place], [place] [address]Performed By: #### 83198-0 ####[facility] LABCLIA [id number] [address] [place] [address] [place] AMERICAChloride [Moles/Vol]104 mmol/L Cygxjf46-534VyghofevrTrinity Health System on above:Order Comment: Specimen Type: BLOOD SPECIMENOrdering Facility: [facility] Address:[address] [place], [place] [address]Performed By: #### 04102-4 ####[facility] LABCLIA [id number] [address], [facility]95 [place] AMERICACO2 [Moles/Vol]24 mmol/KRynyyu04-00QcvtvunrgTrinity Health System on above:Order Comment: Specimen Type: BLOOD SPECIMENOrdering Facility: [facility] Address:[address] [place], [place] [address]Performed By: #### 12335-7 ####[facility] LABIA [id number] [place] [address] [place] Creatinine [Mass/Vol]1.19 mg/dLHigh0.58-0.96[facility] on above:Order Comment: Specimen Type: BLOOD SPECIMENOrdering Facility: [facility] Address:[address] [place], [place] [address]Performed By: #### 03901-6 ####[facility] LABIA [id number] [place] [address] [place] AMERICAeGFRcr SerPlBld CKD- EPI 459067 mL/min/1.73m???Low>=60[facility] on above: Order Comment: Specimen Type: BLOOD SPECIMENOrdering Facility: [facility] Address:[address] [place], [place] [address]Result Comment: Estimated Glomerular Filtration Rate (eGFR) is calculated using the 2020 CKD-EPI cre atinine equation. This equation utilizes serum creatinine, sex, and age as parameters. The creatinine assay has traceable calibration to isotope dilution- mass spectrometry. Refer to KDIGO guidelines for clinical interpretation. In patients with unstable renal function, e.g. those with acute kidney injury, the eGFR may not accurately reflect actual GFR.Performed By: #### 40477-2 ####[facility] LABIA [id number] [place] [address] [place] AMERICAGlucose [Mass/Vol]88 mg/dLNormal 74-99[facility] on above:Order Comment: Specimen Type: BLOOD SPECIMENOrdering Facility: [facility] Address:[address] [place], [place] [address]Result Comment: The [place] Diabetes Association (ADA) provides guidance for cutoff [...] unequivocal hyperglycemia, results should be confirmed by repeattesting. In a patient with classic symptoms of hyperglycemia or hyperglycemic crisis, random plasmaglucose results greater than or equal to 200 mg/dL meet the criteria for diagnosis of diabetes.Reference: Standards of Medical Care in Diabetes 2016, [place] [employer]. Diabetes Care. 2016.39(Suppl 1).Performed By: #### 70043-9 ####[facility] LABCLIA [id number] [address] [address] [place] AMERICAPotassium [Moles/Vol]5.4 mmol/L High3.7-5.1CHenry County Hospital on above:Order Comment: Specimen Type: BLOOD SPECIMENOrdering Facility: [facility] Address:[address] [place], [place] [address]Balutuuqj By: #### 46100-7 ####[facility] LABIA [id number] [address] [address] [place] AMERICAProtein [Mass/Vol]7.3 g/dLNormal6.3-8.0[facility] on above:Order Comment: Specimen Type: BLOOD SPECIMENOrdering Facility: [facility] Address:[address] [place], [place] [address]Performed By: #### 34078-3 ####[facility] LABCLIA [id number] [place] [address] [place] Sodium [Moles/Vol]138 mmol/AGczphs319-398OgpfsjuchTrinity Health System on above:Order Comment: Specimen Type: BLOOD SPECIMENOrdering Facility: [facility] Address:[address] [place], [place] [address]Performed By: #### 40321-6 ####[facility] LABIA [id number] [place] [address] [place] AMERICAUrea nitrogen [Mass/Vol]29 mg/dLHigh7-21[facility] on above:Order Comment: Specimen Type: BLOOD SPECIMENOrdering Facility: [facility] Address:[address] [place], [place] [address]Performed By: #### 33987- 8 ####[facility] LABIA [id number] [place] [address] [place] AMERICAFerritin SerPl-mCncon 03-14-2025 Ferritin [Mass/Vol]96.2 ng/gJCsarcq83.7-205.1ClevelAvita Health System [facility] Hospital on above:Order Comment: Specimen Type: BLOOD SPECIMENOrdering Facility: [facility] Address:[address] [place] [address] Performed By: #### 2132-9, 67208-6, 2276-4, 2284-8 ####[facility] LABIA [id number] [place] [address] [place] AMERICAFolate SerPl-mCncon 99-35-0395Tjkqyq [Mass/Vol]5.7 ng/mLNormal >4.7ClevelAvita Health System [facility] Hospital on above:Order Comment: Specimen Type: BLOOD SPECIMENOrdering Facility: [facility] Address:[address] [place], [place] [address]Performed By: #### 2132-9, 99772-4, 6-4, 2283-8 ####[facility] LABIA [id number] [place] [address] [place] AMERICAIron and Iron binding capacity panelon 39-21-5223Gqik [Mass/Vol]51 ug/sTFhzlla50-460QtolefsasOhio Valley Hospital Comment on above:Order Comment: Specimen Type: BLOOD SPECIMENOrdering Facility: [facility] Address:[address] [place] [address] Performed By: #### 2132-9, 14152-7, 2275-4, 8 ####[facility] [id number] [place] [address] [place] AMERICAIron binding capacity [Mass/Vol]335 ug/kVPjsqui797-590AsdqyvcwxOhio Valley HospitalComment on above:Order Comment: Specimen Type: BLOOD SPECIMENOrdering Facility: [facility] Address:[address] [place], [place] [address]Performed By: #### 2132-9, 48651-9, 6-4, 8 ####[facility]ITALIA [id number] [place] [address] [place] AMERICAIron/TIBC [Molar ratio]15.2 % Mdancz41.0-57.0Ohio Valley HospitalComment on above:Order Comment: Specimen Type: BLOOD SPECIMENOrdering Facility: [facility] Address:[address] [place], [place] [address]Performed By: #### 2132-9, 56188-0, 6-4, 2283-8 ####[facility] LABIA [id number] [place] [address] [place] AMERICAVit B12 SerPl-mCncon 75-47-1260Pcusorobz (Vitamin B12) [Mass/Vol]766 pg/jVEhqelb178-5901Qdogggwjy Clinic ClevelandCommunson medical center on above:Order Comment: Specimen Type: BLOOD SPECIMENOrdering Facility: [facility] Address:[address] [place], [place] [address]Performed By: #### 2132-9, 54456-4, 2276-4, 2284-8 ####[facility] LABCLIA [id number] MAYNORJuanita [facility] [id number] [place] [address] W Auto Differential panel (Bld)on 81-05-5869Jowddwewl (Bld) [#/Vol]10*3/uLNormal<0.11CHenry County Hospital on above:Order Comment: Specimen Type: BLOOD SPECIMENOrdering Facility: [facility] Address:[address] [place], [place] [address]Performed By: #### 24453-7 ####[facility] LABCLIA [id number] [place], [place] [address]Vqsqgpwps/100 WBC (Bld)0.2 % NormalTrinity Health System on above:Order Comment: Specimen Type: BLOOD SPECIMENOrdering Facility: [facility] Address:[address] [place], [place] [address]Performed By: #### 89622-9 ####[facility] LABCLIA [id number] [place] [address] Differential cell count method Nom (Bld)AutoNormalCTriHealth Comment on above:Order Comment: Specimen Type: BLOOD SPECIMENOrdering Facility: [facility] Address:[address] [place] [address] Performed By: #### 38765-7 ####[facility] LABCLIA [id number] [place], [place] [address]Fnfcznwftpm (Bld) [#/Vol]0.04 10*3/uLNormal<0.46[facility] on above:Order Comment: Specimen Type: BLOOD SPECIMENOrdering Facility: [facility] Address:[address] [place], [place] [address]Performed By: #### 71031-6 ####[facility] LABCLIA [id number] [place], [place] [address]Ikeewkwwcjv/100 WBC (Bld)0.9 %NormalTrinity Health System on above:Order Comment: Specimen Type: BLOOD SPECIMENOrdering Facility: [facility] Address:[address] [place], [place] [address]Performed By: #### 81556-6 ####[facility] LABIA [id number] [place], [place] [address]Gtfyfqzjwkj distribution width (RBC) [Ratio]14.5 %Lvibtm61.5-15.0[facility] on above: Order Comment: Specimen Type: BLOOD SPECIMENOrdering Facility: [facility] Address:[address] [place], [place] [address]Performed By: #### 81125- 8 ####[facility] LABIA [id number] [place], [place] [address]Labeigpebu (Bld) [Volume fraction]34.3 %Low36.0-46.0 [facility] on above:Order Comment: Specimen Type: BLOOD SPECIMENOrdering Facility: [facility] Address:[address] [place], [place] [address]Performed By: #### 66238-6 ####[facility] LABIA [id number] [place], [place] [address]Vosuwvrvla (Bld) [Mass/Vol]10.8 g/dLLow11.5-15.5CHenry County Hospital on above:Order Comment: Specimen Type: BLOOD SPECIMENOrdering Facility: [facility] Address:[address] [place], [place] [address]Performed By: #### 39509- 8 ####[facility] LABIA [id number] [place], [place] [address]Gjqppvoo granulocytes (Bld) [#/Vol]10*3/uLNormal<0.10 [facility] on above:Order Comment: Specimen Type: BLOOD SPECIMENOrdering Facility: [facility] Address:[address] [place], [place] [address]Performed By: #### 53515-7 ####[facility] LABCLIA [id number] [place], [place] [address]Uestsawx granulocytes/100 WBC (Bld)0.0 %NormalTrinity Health System on above: Order Comment: Specimen Type: BLOOD SPECIMENOrdering Facility: [facility] Address:[address] [place], [place] [address]Performed By: #### 75625- 8 ####[facility] LABCLIA [id number] [place], [place] [address]Otltkknljrp (Bld) [#/Vol]1.87 10*3/uLNormal1.00-4.00 [facility] on above:Order Comment: Specimen Type: BLOOD SPECIMENOrdering Facility: [facility] Address:[address] [place], [place] [address]Performed By: #### 34657-4 ####[facility] LABCLIA [id number] [place], [place] [address]Navcdnzxftt/100 WBC (Bld)43.3 %NormalTrinity Health System on above:Order Comment: Specimen Type: BLOOD SPECIMENOrdering Facility: [facility] Address:[address] [place], [place] [address]Performed By: #### 89311-7 ####[facility] LABCLIA [id number] [place], [place] [address]BPD (RBC) [Entitic mass]32.2 xeUktavw21.0-34.0[facility] on above:Order Comment: Specimen Type: BLOOD SPECIMENOrdering Facility: [facility] Address:[address] [place], [place] [address]Performed By: #### 19431-5 ####[facility] LABCLIA [id number] [place], [place] [address]UAKO (RBC) [Mass/Vol]31.5 g/aYMyriyx15.5-36.0[facility] on above: Order Comment: Specimen Type: BLOOD SPECIMENOrdering Facility: [facility] Address:[address] [place], [place] [address]Performed By: #### 34893- 8 ####[facility] LABIA [id number] [place], [place] [address]HGB (RBC) [Entitic vol]102.4 rGUhgp02.0-100.0[facility] on above:Order Comment: Specimen Type: BLOOD SPECIMENOrdering Facility: [facility] Address:[address] [place], [place] [address]Performed By: #### 78613-4 ####[facility] [id number] [place], [place] [address]Ggtvdjais (Bld) [#/Vol]0.23 10*3/uLNormal<0.87[facility] on above:Order Comment: Specimen Type: BLOOD SPECIMENOrdering Facility: [facility] Address:[address] [place], [place] [address]Performed By: #### 74267- 8 ####[facility] LABIA [id number] [place], [place] [address]Bpniqtdyj/100 WBC (Bld)5.3 %NormalTrinity Health System on above:Order Comment: Specimen Type: BLOOD SPECIMENOrdering Facility: [facility] Address:[address] [place], [place] [address]Performed By: #### 34028-4 ####[facility] LABIA [id number] [place], [place] [address]Zfzurkctqti (Bld) [#/Vol]2.17 10*3/uLNormal1.45-7.50[facility] on above:Order Comment: Specimen Type: BLOOD SPECIMENOrdering Facility: [facility] Address:[address] [place], [place] [address]Performed By: #### 41319-5 ####[facility] LABCLIA [id number] [place], [place] [address]Fcmofidjdxy/100 WBC (Bld)50.3 %NormalTrinity Health System on above:Order Comment: Specimen Type: BLOOD SPECIMENOrdering Facility: [facility] Address:[address] [place], [place] [address]Performed By: #### 81414-6 ####[facility] LABCLIA [id number] [place], [place] [address]Zrsrosaav RBC (Bld) [#/Vol] 10*3/uLNormal<0.01[facility] on above:Order Comment: Specimen Type: BLOOD SPECIMENOrdering Facility: [facility] Address:[address] [place], [place] [address]Performed By: #### 66061-7 ####[facility] LABCLIA [id number] [place], [place] [address]Ccnfsmqcy RBC/100 WBC (Bld) [Ratio]0.0 /100 WBCNormal [facility] on above:Order Comment: Specimen Type: BLOOD SPECIMENOrdering Facility: [facility] Address:[address] [place], [place] [address]Performed By: #### 07575-7 ####[facility] LABCLIA [id number] [place], [place] [address]Wyamphxr mean volume (Bld) [Entitic vol]8.7 fLLow9.0-12.7CHenry County Hospital on above:Order Comment: Specimen Type: BLOOD SPECIMENOrdering Facility: [facility] Address:[address] [place], [place] [address]Performed By: #### 85868-6 ####[facility] LABCLIA [id number] [place], [place] [address]Myjdxdgnx (Bld) [#/Vol]146 10*3/rWPhx792-396YnpdvudawTrinity Health System on above:Order Comment: Specimen Type: BLOOD SPECIMENOrdering Facility: [facility] Address:[address] [place], [place] [address]Performed By: #### 88020-9 ####[facility] LABIA [id number] [place], [place] [address]KLM (Bld) [#/Vol]3.35 10*6/uLLow3.90-5.20Ohio Valley HospitalComment on above:Order Comment: Specimen Type: BLOOD SPECIMENOrdering Facility: [facility] Address:[address] [place], [place] [address]Performed By: #### 16910- 8 ####[facility]ITAL[facility] [id number] [place], [place] [address]AER (Bld) [#/Vol]4.32 10*3/uLNormal3.70-11.00Ohio Valley HospitalCommunson medical center on above:Order Comment: Specimen Type: BLOOD SPECIMENOrdering Facility: [facility] Address:[address] [place], [place] [address]Performed By: #### 26013-1 ####[facility]ITALIA [id number] [place], [place] [address]XHUTMQmf 74-69-6395AUWLMKYedpqiStwjwftls Clinic ClevelandComprehensive metabolic 2000 panelon 80-26-2631Tdokcfk [Mass/Vol]3.8 g/dLLow3.9-4.9CTriHealth Comment on above:Order Comment: Specimen Type: BLOOD SPECIMENOrdering Facility: [facility] Address:[address] [place] [address] Performed By: #### 57689-0 ####[facility] [id number] [place], [place] [address]NRO [Catalytic activity/Vol]78 U/TCemdlj73-417ZttvlpjfgTrinity Health System on above:Order Comment: Specimen Type: BLOOD SPECIMENOrdering Facility: [facility] Address:[address] [place], [place] [address]Performed By: #### 04305-4 ####[facility] HOSPITALJOSE ROBERTO [facility] LABCLIA [id number] [facility] AGNESPHOENIX [facility]IL[facility]EN[facility] [address]JXG [Catalytic activity/Vol]16 U/LNormal7-38[facility] on above:Order Comment: Specimen Type: BLOOD SPECIMENOrdering Facility: [facility] Address:[address] [place], [place] [address]Performed By: #### 88849-0 ####[facility] LABCLIA [id number] [facility], [place] [address]Qzlxj gap [Moles/Vol]7 mmol/LLow8-15[facility] on above:Order Comment: Specimen Type: BLOOD SPECIMENOrdering Facility: [facility] Address:[address] [place], [place] [address]Performed By: #### 99498- 8 ####[facility] LABCLIA [id number] [facility]ESPHOEN[facility] CHIL[facility] HOSPITALMABELSA[place], [place] [address]VVO [Catalytic activity/Vol]20 U/SMjwtxl25-24YfeizgepmTrinity Health System on above:Order Comment: Specimen Type: BLOOD SPECIMENOrdering Facility: [facility] Address:[address] [place], [place] [address]Performed By: #### 51717-1 ####[facility] LABCLIA [id number] [facility] [place], [place] [address]Gjbqinhri [Mass/Vol]0.6 mg/dLNormal0.2-1.3CHenry County Hospital on above:Order Comment: Specimen Type: BLOOD SPECIMENOrdering Facility: [facility] Address:[address] [place], [place] [address]Performed By: #### 08298- 8 ####[facility] LABCLIA [id number] [place], [place] [address]Kxuurxb [Mass/Vol]9.4 mg/dLNormal8.5-10.2CHenry County Hospital on above:Order Comment: Specimen Type: BLOOD SPECIMENOrdering Facility: [facility] Address:[address] [place], [place] [address]Performed By: #### 64352-3 ####[facility] LABCLIA [id number] [place], [place] [address]Dcdkfhuu [Moles/Vol]108 mmol/L Dzkr71-862JuzseigriTrinity Health System on above:Order Comment: Specimen Type: BLOOD SPECIMENOrdering Facility: [facility] Address:[address] [place], [place] [address]Performed By: #### 43800-6 ####[facility] LABCLIA [id number] [place] [address] CO2 [Moles/Vol]25 mmol/QPsafnv37-25XqlzgnphvTrinity Health System on above: Order Comment: Specimen Type: BLOOD SPECIMENOrdering Facility: [facility] Address:[address] [place], [place] [address]Performed By: #### [id number]- [id number] ####[facility] LABCLIA [id number] [place], [place] [address]Fchribzjwa [Mass/Vol]1.21 mg/dLHigh0.58-0.96[facility] on above:Order Comment: Specimen Type: BLOOD SPECIMENOrdering Facility: [facility] Address:[address] [place], [place] [address]Performed By: #### [id number] ####[facility] LABIA [id number] [place], [place] [address]yUPVsm SerPlBld CKD-EPI 910844 mL/min/1.73m???Low>=60[facility] on above: Order Comment: Specimen Type: BLOOD SPECIMENOrdering Facility: [facility] Address:[address] [place], [place] [address]Egnufb Comment: Estimated Glomerular Filtration Rate (eGFR) is calculated using the 2020 CKD-EPI cre atinine equation. This equation utilizes serum creatinine, sex, and age as parameters. The creatinine assay has traceable calibration to isotope dilution- mass spectrometry. Refer to KDIGO guidelines for clinical interpretation. In patients with unstable renal function, e.g. those with acute kidney injury, the eGFR may not accurately reflect actual GFR.Performed By: #### 21450-7 ####[facility] LABCLIA [id number] [place], [place] [address]Djnqmep [Mass/Vol]109 mg/rNHqyf42-97VdgyoorbmTrinity Health System on above:Order Comment: Specimen Type: BLOOD SPECIMENOrdering Facility: [facility] Address:[address] [place], [place] [address]Result Comment: The [place] Diabetes Association (ADA) provides guidance for cutoff values for fasting glucose and random glucose. The ADA defines fasting as no caloric intake for at least 8 hours. Fasting plasma glucose results between 100 to 125 mg/dL indicate increased risk for diabetes (prediab etes).Fasting plasma glucose results greater than or equal to 126 mg/dL meet the criteria for diagnosis of diabetes. In the absence of unequivocal hyperglycemia, results should be confirmed by repeattesting. In a patient with classic symptoms of hyperglycemia or hyperglycemic crisis, random plasmaglucose results greater than or equal to 200 mg/dL meet the criteria for diagnosis of diabetes.Reference: Standards of Medical Care in Diabetes 2016, [place] [employer]. Diabetes Care. 2016.39(Suppl 1).Performed By: #### 58674-4 ####[facility] LABCLIA [id number] [place], [place] [address]Qocworkuc [Moles/Vol]4.4 mmol/LNormal3.7-5.1CHenry County Hospital on above:Order Comment: Specimen Type: BLOOD SPECIMENOrdering Facility: [facility] Address:[address] [place], [place] [address]Performed By: #### 17817-2 ####[facility] LABCLIA [id number] [place], [place] [address]Wnoleuz [Mass/Vol]7.1 g/dLNormal6.3-8.0[facility] on above:Order Comment: Specimen Type: BLOOD SPECIMENOrdering Facility: [facility] Address:[address] [place], [place] [address]Performed By: #### 06786- 8 ####[facility] LABCLIA [id number] [place], [place] [address]Lhteca [Moles/Vol]140 mmol/XPoqkhm130-519YiozfxkcwTrinity Health System on above:Order Comment: Specimen Type: BLOOD SPECIMENOrdering Facility: [facility] Address:[address] [place], [place] [address]Performed By: #### 56862-6 ####[facility] LABCLIA [id number] [place], [place] [address]Sexw nitrogen [Mass/Vol]37 mg/dLHigh7-21[facility] on above:Order Comment: Specimen Type: BLOOD SPECIMENOrdering Facility: [facility] Address:[address] [place], [place] [address]Performed By: #### 96219-6 ####[facility] LABCLIA [id number] [place] [address] Ferritin SerPl-mCncon 86-54-9806Eyoammup [Mass/Vol]80.1 ng/oDMljigp07.7-205.1 [facility] on above:Order Comment: Specimen Type: BLOOD SPECIMENOrdering Facility: [facility] Address:[address] [place], [place] [address]Performed By: #### 2276-4, 31624-3, 2284-8, 2132-9 ####[facility] LABCLIA [id number] [place] [address] [place] OF AMERICAFolate SerPl-mCncon 02-14-2025 Folate [Mass/Vol]10.5 ng/mLNormal>4.7[facility] ClevelandComment on above: Order Comment: Specimen Type: BLOOD SPECIMENOrdering Facility: [facility] Address:[address] [place], [place] [address]Performed By: #### 2276- 4, 68028-6, 2283-8, 2132-03 ####[facility] LABCLIA [id number] [place] [id number] [place] OF AMERICAIron and Iron binding capacity panelon 38-64-1718Yqnp [Mass/Vol]66 ug/bXKagfnl54-551 [facility] on above:Order Comment: Specimen Type: BLOOD SPECIMENOrdering Facility: [facility] Address:[address] [place], [place] [address]Performed By: #### 2276-4, 80375-0, 8, 2132-03 ####[facility] LABCLIA [id number] [address] STATES OF AMERICAIron binding capacity [Mass/Vol] 319 ug/wCTblcgj120-138YugvwqxpgTrinity Health System on above:Order Comment: Specimen Type: BLOOD SPECIMENOrdering Facility: [facility] Address:[address] [place], [place] [address]Performed By: #### 2276-4, 89574-3, 8, 2132-03 ####[facility] LABCLIA [id number] [place] [id number] [place] AMERICAIron/TIBC [Molar ratio]20.7 %Bbrilv06.0-57.0[facility] on above:Order Comment: Specimen Type: BLOOD SPECIMENOrdering Facility: [facility] Address:[address] [place], [place] [address]Performed By: #### 2276- 4, 53463-3, 8, 2132-03 ####[facility] LABCLIA [id number] [place] [id number] [place] OF AMERICAVit B12 SerPl-mCncon 55-87-4863Kwbpgcluh (Vitamin B12) [Mass/Vol]680 pg/gHUkrhgq659-8553 [facility] on above:Order Comment: Specimen Type: BLOOD SPECIMENOrdering Facility: [facility] Address:[address] [place], [place] [address]Performed By: #### 2276-4, 12329-3, 2284-8, 2132-9 ####[facility] LABCLIA [id number] [address] Auto Differential panel (Bld)on 03-86-8566Dqcakpycr (Bld) [#/Vol]10*3/uLNormal<0.11CHenry County Hospital on above:Order Comment: Specimen Type: BLOOD SPECIMENOrdering Facility: [facility] Address:[address] [place], [place] [address]Performed By: #### 96808-0 ####[facility] LABCLIA [id number] [place], [place] [address]Skybmvcyj/100 WBC (Bld)0.2 % NormalTrinity Health System on above:Order Comment: Specimen Type: BLOOD SPECIMENOrdering Facility: [facility] Address:[address] [place], [place] [address]Performed By: #### 49137-0 ####[facility] LABCLIA [id number] [place] [address] Differential cell count method Nom (Bld)AutoNormalClevelNovant Health Mint [facility] Comment on above:Order Comment: Specimen Type: BLOOD SPECIMENOrdering Facility: [facility] Address:[address] [place] [address] Performed By: #### 97253-6 ####[facility] LABCLIA [id number] [place], [place] [address]Nyhpaedyoza (Bld) [#/Vol]0.04 10*3/uLNormal<0.46[facility] on above:Order Comment: Specimen Type: BLOOD SPECIMENOrdering Facility: [facility] Address:[address] [place], [place] [address]Performed By: #### 32035-9 ####[facility]ITAL[facility]ERT[facility] LABCLIA [id number] [place], [place] [address]Usnkzqrlkoc/100 WBC (Bld)0.8 %NormalTrinity Health System on above:Order Comment: Specimen Type: BLOOD SPECIMENOrdering Facility: [facility] Address:[address] [place], [place] [address]Performed By: #### 31475-2 ####[facility] LABIA [id number] [place], [place] [address]Lsjwcrldyaz distribution width (RBC) [Ratio]14.5 %Dbranv85.5-15.0[facility] on above: Order Comment: Specimen Type: BLOOD SPECIMENOrdering Facility: [facility] Address:[address] [place], [place] [address]Performed By: #### 08508- 8 ####[facility]OSPITALJO[facility] ROBERT[facility] LABIA [id number] [place], [place] [address]Gehpcjrazr (Bld) [Volume fraction]33.8 %Low36.0-46.0 [facility] on above:Order Comment: Specimen Type: BLOOD SPECIMENOrdering Facility: [facility] Address:[address] [place], [place] [address]Performed By: #### 79347-3 ####[facility] LABIA [id number] [place], [place] [address]Bormlrvwog (Bld) [Mass/Vol]10.6 g/dLLow11.5-15.5CHenry County Hospital on above:Order Comment: Specimen Type: BLOOD SPECIMENOrdering Facility: [facility] Address:[address] [place], [place] [address]Performed By: #### 79200- 8 ####[facility] LABCLIA [id number] [place], [place] [address]Emqmpjix granulocytes (Bld) [#/Vol]10*3/uLNormal<0.10 [facility] on above:Order Comment: Specimen Type: BLOOD SPECIMENOrdering Facility: [facility] Address:[address] [place], [place] [address]Performed By: #### 77831-2 ####[facility] LABCLIA [id number] [place], [place] [address]Xkkrujeb granulocytes/100 WBC (Bld)0.4 %NormalTrinity Health System on above: Order Comment: Specimen Type: BLOOD SPECIMENOrdering Facility: [facility] Address:[address] [place], [place] [address]Performed By: #### 26876- 8 ####[facility] LABCLIA [id number] [place], [place] [address]Gmwtrthgdsz (Bld) [#/Vol]2.20 10*3/uLNormal1.00-4.00 [facility] on above:Order Comment: Specimen Type: BLOOD SPECIMENOrdering Facility: [facility] Address:[address] [place], [place] [address]Performed By: #### 65658-5 ####[facility] LABIA [id number] [place], [place] [address]Qwhgnixwiiw/100 WBC (Bld)42.6 %NormalTrinity Health System on above:Order Comment: Specimen Type: BLOOD SPECIMENOrdering Facility: [facility] Address:[address] [place], [place] [address]Performed By: #### 01134-0 ####[facility] LABIA [id number] [place], [place] [address]GPU (RBC) [Entitic mass]31.8 gmAtbdvg44.0-34.0[facility] on above:Order Comment: Specimen Type: BLOOD SPECIMENOrdering Facility: [facility] Address:[address] [place], [place] [address]Performed By: #### 50900-6 ####[facility] LABCLIA [id number] [place], [place] [address]JGGA (RBC) [Mass/Vol]31.4 g/cWYgprrb77.5-36.0[facility] on above: Order Comment: Specimen Type: BLOOD SPECIMENOrdering Facility: [facility] Address:[address] [place], [place] [address]Performed By: #### 47727- 8 ####[facility] LABCLIA [id number] [place], [place] [address]CRU (RBC) [Entitic vol]101.5 oKYtwa77.0-100.0[facility] on above:Order Comment: Specimen Type: BLOOD SPECIMENOrdering Facility: [facility] Address:[address] [place], [place] [address]Performed By: #### 58731-7 ####[facility] LABCLIA [id number] [place], [place] [address]Rpnpvvgmv (Bld) [#/Vol]0.25 10*3/uLNormal<0.87[facility] on above:Order Comment: Specimen Type: BLOOD SPECIMENOrdering Facility: [facility] Address:[address] [place], [place] [address]Performed By: #### 20520- 8 ####[facility] LABCLIA [id number] [place], [place] [address]Ovwfopltt/100 WBC (Bld)4.8 %NormalTrinity Health System on above:Order Comment: Specimen Type: BLOOD SPECIMENOrdering Facility: [facility] Address:[address] [place], [place] [address]Performed By: #### 04300-1 ####[facility] LABCLIA [id number] [place], [place] [address]Kwsbreymqnz (Bld) [#/Vol]2.65 10*3/uLNormal1.45-7.50[facility] on above:Order Comment: Specimen Type: BLOOD SPECIMENOrdering Facility: [facility] Address:[address] [place], [place] [address]Performed By: #### 45689-7 ####[facility] LABIA [id number] [place], [place] [address]Tmwupiyjywf/100 WBC (Bld)51.2 %NormalTrinity Health System on above:Order Comment: Specimen Type: BLOOD SPECIMENOrdering Facility: [facility] Address:[address] [place], [place] [address]Performed By: #### 32929-8 ####[facility] LABIA [id number] [place], [place] [address]Vllspzcuw RBC (Bld) [#/Vol] 10*3/uLNormal<0.01[facility] on above:Order Comment: Specimen Type: BLOOD SPECIMENOrdering Facility: [facility] Address:[address] [place], [place] [address]Performed By: #### 22075-5 ####[facility] LABIA [id number] [place], [place] [address]Nzpuvtohz RBC/100 WBC (Bld) [Ratio]0.0 /100 WBCNormal [facility] on above:Order Comment: Specimen Type: BLOOD SPECIMENOrdering Facility: [facility] Address:[address] [place], [place] [address]Performed By: #### 07972-8 ####[facility] LABIA [id number] [place], [place] [address]Pyjtlrlm mean volume (Bld) [Entitic vol]8.8 fLLow9.0-12.7CHenry [facility] Hospital on above:Order Comment: Specimen Type: BLOOD SPECIMENOrdering Facility: [facility] Address:[address] [place], [place] [address]Performed By: #### 13443-9 ####[facility] LABCLIA [id number] [place], [place] [address]Hmhipjsjv (Bld) [#/Vol]160 10*3/yZPhwhco911-229TpngtocqrOhio Valley HospitalCommunson medical center on above:Order Comment: Specimen Type: BLOOD SPECIMENOrdering Facility: [facility] Address:[address] [place], [place] [address]Performed By: #### 27649-7 ####[facility] LABCLIA [id number] [place], [place] [address]MKM (Bld) [#/Vol]3.33 10*6/uLLow3.90-5.20Ohio Valley HospitalCommunson medical center on above:Order Comment: Specimen Type: BLOOD SPECIMENOrdering Facility: [facility] Address:[address] [place], [place] [address]Performed By: #### 64656- 8 ####[facility] LABCLIA [id number] [place], [place] [address]XVX (Bld) [#/Vol]5.17 10*3/uLNormal3.70-11.00[facility] on above:Order Comment: Specimen Type: BLOOD SPECIMENOrdering Facility: [facility] Address:[address] [place], [place] [address]Performed By: #### 80158-3 ####[facility] LABCLIA [id number] [place], [place] [address]NDTPyz 79-12-1222ZNBKBwptflAhowcqnssMercy Health St. [facility] 70-62-6922kNYZ Coag (Bld) [Time]33 lOknvba00-63RvdOioulxBellevue HospitalComment on above:Performed By: #### RED DENSON #### [facility] ([id number]) [address], [address] [place], [place] [address]DMJ WITH AUTO DIFFERENTIALon 04-88-7096KCEADPDWO ABSOLUTE COUNT (10*3/UL) BY AUTOMATED COUNT0.0 10*3/uLNormal0.0-0.2PMiddletown Hospital Comment on above:Performed By: #### SAMUEL, THYR #### [facility] ([id number]) [address], [facility] [address] [place], [place] [address]GATEPYFJT RELATIVE PERCENT BY AUTOMATED COUNT0.4 %Normal [facility] HospitalComment on above:Performed By: #### SAMUEL, THYR #### [facility] ([id number]) [address], [facility] [address] [place], [place] [address]RDQTPRQNRBS DIFFERENTIAL TYPEAUTOMATED DIFFERENTIALNormal [facility] HospitalComment on above:Performed By: #### SAMUEL, THYR #### [facility] ([id number]) [address], [facility] [address] [place], [place] [address]Qzcisdtveja (Bld) [#/Vol]0.0 10*3/uLNormal0.0-0.4ProAdena Fayette Medical Centerca Marinhealth Medical CenterComment on above:Performed By: #### SAMUEL, THYR #### [facility] ([id number]) [address], [facility] [address] [place], [place] [address]CWOMXAHFCRS RELATIVE PERCENT BY AUTOMATED COUNT1.0 %Normal [facility] HospitalComment on above:Performed By: #### SAMUEL, THYR #### [facility] ([id number]) [address], [facility] [address] [place], [place] [address]Muqhyvezfam distribution width (RBC) [Ratio]15.0 %Wobeqc75.5-15 [facility] HospitalComment on above:Performed By: #### SAMUEL, THYR #### [facility] ([id number]) [address], [facility] [address] [place], [place] [address]Hremkauqnc (Bld) [Volume fraction]32.7 %Ruu73-43AnaCqloodBellevue HospitalComment on above:Performed By: #### SAMUEL, THYR #### [facility] ([id number]) [address], [address] [place], [place] [address]Zxyevcybje (Bld) [Mass/Vol]11.0 g/dLLow11.7-15.5PMiddletown HospitalComment on above:Performed By: #### SAMUEL, THYR #### [facility] ([id number]) [address], [address] [place], [place] [address]DULBNOZCUOL ABSOLUTE COUNT (10*3/UL) BY AUTOMATED COUNT1.5 10*3/uLNormal1.0-3.5PMiddletown HospitalComment on above:Performed By: #### SAMUEL, THYR #### [facility] ([id number]) [address], [address] [place], [place] [address]FELHHIZYHGI RELATIVE PERCENT BY AUTOMATED COUNT40.7 %Normal [facility] HospitalComment on above:Performed By: #### SAMUEL, THYR #### [facility] ([id number]) [address], [address] [place], [place] [address]NQR (RBC) [Entitic mass]32.4 nzGjzbqu39-08FvxRzulmzKnapp Medical CenterComment on above:Performed By: #### SAMUEL, THYR #### [facility] ([id number]) [address], [address] [place], [place] [address]DIJC (RBC) [Mass/Vol]33.6 g/mTEyfqrx21-18NtdZhvqhyKnapp Medical CenterComment on above:Performed By: #### SAMUEL, THYR #### [facility] ([id number]) [address], [address] [place], [place] [address]GAA (RBC) [Entitic vol]97 bGFcvlvo88-128LzpLefbmy [facility] HospitalComment on above:Performed By: #### SAMUEL, THYR #### [facility] ([id number]) [address], [address] [place] [address]XRFMOGQZP ABSOLUTE COUNT (10*3/UL) BY AUTOMATED COUNT0.2 10*3/uL Normal0.0-0.9B[facility] HospitalComment on above:Performed By: #### SAMUEL, THYR #### [facility] ([id number]) [address], [address] [place], [place] [address]NUPSIPWBS RELATIVE PERCENT BY AUTOMATED COUNT5.8 %Normal [facility] HospitalComment on above:Performed By: #### SAMUEL, THYR #### [facility] ([id number]) [address], [address] [place], [place] [address]UIXFUUNHOXU ABSOLUTE COUNT BY AUTOMATED COUNT2.0 10*3/uLNormal 1.5-6.6ProKnapp Medical CenterComment on above:Performed By: #### SAMUEL, THYR #### [facility] ([id number]) [address], [address] [place] [address]ODUWRWGUVIK RELATIVE PERCENT BY AUTOMATED COUNT52.1 %Normal [facility] HospitalComment on above:Performed By: #### SAMUEL, THYR #### [facility] ([id number]) [address], [address] [place] [address]Wiupcsme mean volume (Bld) [Entitic vol]8.2 fLNormal7-12 [facility] HospitalComment on above:Performed By: #### SAMUEL, THYR #### [facility] ([id number]) [address], [address] [place] [address]Mtumwrtkx (Bld) [#/Vol]189 10*3/xBOxjyxf171-925MwnUfoygb [facility] HospitalComment on above:Performed By: #### SAMUEL, THYR #### [facility] ([id number]) [address], [address] [place], [place] [address]UZP COUNT3.38 X10E12/LLow3.8-5.2PMiddletown Hospital Comment on above:Performed By: #### SAMUEL, THYR #### [facility] ([id number]) [address], [address] [place] [address]FLU (Bld) [#/Vol]3.8 10*3/uLLow4-11[facility] Comment on above:Performed By: #### SAMUEL, THYR #### [facility] ([id number]) [address], [address] [place] [address]PXKDDXOOETJAM METABOLIC PANELon 91-11-42[address]Jjawemk [Mass/Vol]3.6 g/dLNormal3.2-5.3PMiddletown HospitalComment on above:Performed By: #### SAMUEL, THYR #### [facility] ([id number]) [address], [address] [place] [address]QRO [Catalytic activity/Vol]70 U/OCnkcex49-684NqdNwinxeBellevue HospitalComment on above:Performed By: #### SAMUEL, THYR #### [facility] ([id number]) [address], [address] [place] [address]NII [Catalytic activity/Vol]11 U/LNormal<=31PMiddletown HospitalComment on above:Performed By: #### SAMUEL, THYR #### [facility] ([id number]) [address], [address] [place] [address]Mnxsf gap [Moles/Vol]11 mmol/LNormal5-15ProKnapp Medical CenterComment on above:Performed By: #### SAMUEL, THYR #### [facility] ([id number]) [address], [address] [place], [place] [address]MSV [Catalytic activity/Vol]18 U/LNormal<=41ProKnapp Medical CenterComment on above:Performed By: #### SAMUEL, THYR #### [facility] ([id number]) [address], [address] [place] [address]Biphizaln [Mass/Vol]0.5 mg/dLNormal0.3-1.2PMiddletown HospitalComment on above:Performed By: #### SAMUEL, THYR #### [facility] ([id number]) [address], [facility] [address] [place], [place] [address]Xkbfsyf [Mass/Vol]9.3 mg/dLNormal8.5-10.5PMiddletown HospitalComment on above:Performed By: #### SAMUEL, THYR #### [facility] ([id number]) [address], [address] [place], [place] [address]Hlqppjxq [Moles/Vol]106 mmol/TQxccyf44-332VhlCykiyjKnapp Medical CenterComment on above:Performed By: #### SAMUEL, THYR #### [facility] ([id number]) [address], [address] [place], [place] [address]YW3 [Moles/Vol]24 mmol/IKshkqi32-88TgqXovabhMiddletown Hospital Comment on above:Performed By: #### SAMUEL, THYR #### [facility] ([id number]) [address], [address] [place], [place] [address]Vfxbokxsai [Mass/Vol]1.17 mg/dLHigh0.40-1.00ProKnapp Medical CenterComment on above:Result Comment: METHOD TRACEABLE TO IDMS STANDARD Performed By: #### SAMUEL, THYR #### [facility] ([id number]) [address], [address] [place], [place] [address]LOF/1.73 sq M.predicted among non-blacks MDRD (S/P/Bld) [Vol rate/Area]49 mL/min/{1.73_m2}Low>=60ProKnapp Medical CenterComment on above: Result Comment: Reported eGFR is based on the CKD-EPI 2020 equation that does not use a race coefficient.Performed By: #### SAMUEL, THYR #### [facility] ([id number]) [address], [address] [place], [place] [address]Vhoigls [Mass/Vol]90 mg/mRDqrykb13-91FlnBwgonpBellevue Hospital Comment on above:Performed By: #### SAMUEL, THYR #### [facility] ([id number]) [address], [address] [place], [place] [address]Nfteyxrab [Moles/Vol]4.6 mmol/LNormal3.5-5.0ProKnapp Medical CenterComment on above:Performed By: #### SAMUEL, THYR #### [facility] ([id number]) [address], [address] [place], [place] [address]Yiakugm [Mass/Vol]7.1 g/dLNormal6.0-8.0ProKnapp Medical CenterComment on above:Performed By: #### SAMUEL, THYR #### [facility] ([id number]) [address], [address] [place], [place] [address]Mxzcrt [Moles/Vol]141 mmol/UZrzoee021-067NaoPiurfk [facility] HospitalComment on above:Performed By: #### SAMUEL, THYR #### [facility] ([id number]) [address], [address] [place], [place] [address]Azza nitrogen [Mass/Vol]32 mg/dLHigh5-27ProKnapp Medical CenterComment on above:Performed By: #### SAMUEL, THYR #### [facility] ([id number]) [address], [address] [place], [place] [address]KYOBWOVUsl [id number] [Mass/Vol]41 ng/xIWdeswq95-871 [facility] HospitalComment on above:Performed By: #### SAMUEL, THYR #### [facility] ([id number]) [address], [address] [place] [address]NGBA AND TIBCon 93-84-0489Shqz [Mass/Vol]40 ug/aWEpb01-989 ProMKaiser Foundation HospitalComment on above:Performed By: #### SAMUEL, THYR #### [facility] ([id number]) [address], [address] [place] [address]MOYX WEZPDEP962 ug/gMUwtdhv710-747UauBygwztBellevue Hospital Comment on above:Performed By: #### SAMUEL, THYR #### [facility] ([id number]) [address], [address] [place], [place] [address]ETFA IESEDZFBCY80 % IWXZIKDDAYLgu36-49YtuQafhbz [facility] Comment on above:Performed By: #### SAMUEL, THYR #### [facility] ([id number]) [address], [address] [place], [place] [address]Rjltmbkgtfo [Mass/Vol]235 mg/hMDoobgr150-961XwiQsnghd [facility] HospitalComment on above:Performed By: #### SAMUEL, THYR #### [facility] ([id number]) [address], [address] [place], [place] [address]KADZWLGBJbi 83-66-8492Galivlene [Mass/Vol]2.2 mg/dLNormal1.8-2.6 [facility] HospitalComment on above:Performed By: #### SAMUEL, THYR #### [facility] [facility] ([id number]) [address], [address] [place] [address]MFHDOHKZWRH HORMOME, INTACTon 14-22-3792ASW AQXORF97 pg/mLNormal 12-88[facility] HospitalComment on above:Performed By: #### SAMUEL, THYR #### [facility] ([id number]) [address], [address] [place], [place] [address]UCIXFQYJZGoc 56-39-1209Koizqqdiz [Mass/Vol]2.9 mg/dLNormal 2.4-4.9[facility] HospitalComment on above:Performed By: #### SAMUEL, THYR #### [facility] ([id number]) [address], [address] [place], [place] [address]JRMBUHB CREAT RATIOon 01-20-2025U/PRO/SR ACCOUNT EXECUTIVE RATIO CALC0.09Normal <=0.20ProKnapp Medical CenterComment on above:Order Comment: Nephrotic Syndrome is associated with ratios >3.5Performed By: #### SAMUEL, THYR #### [facility] ([id number]) [address], [address] [place], [place] [address]KIKYV CREATININE,VRL059.08 mg/dLNormalProKnapp Medical Center Comment on above:Order Comment: Nephrotic Syndrome is associated with ratios >3.5Performed By: #### SAMUEL, THYR #### [facility] ([id number]) [address], [address] [place], [place] [address]AUFQA PROTEIN, RANDOM (MG/L)100 mg/LNormal<120ProKnapp Medical CenterComment on above:Order Comment: Nephrotic Syndrome is associated with ratios >3.5Performed By: #### SAMUEL, THYR #### [facility] ([id number]) [address], [address] [place], [place] [address]NFCJOWJ AND INRon 51-83-7683TTC1.6Nhvdpy4.9-1.2PMiddletown HospitalComment on above:Performed By: #### RED DENSON #### [facility] ([id number]) [address], [address] [place], [place] [address]NE Coag (PPP) [Time]11.2 sNormal9.8-13.2PMiddletown HospitalComment on above:Performed By: #### UA, MALBU #### [facility] ([id number]) [address], [address] [place], [place] [address]SNLC ACIDon 27-29-9193Skxrr [Mass/Vol]7.9 mg/dLHigh2.6-7.2 [facility] HospitalComment on above:Performed By: #### SAMUEL, THYR #### [facility] ([id number]) [address], [address] [place], [place] [address]AIBFBCMONSux 43-86-0273Oalwjgule Ql (U)NegativeNormalNegMercy Health – The Jewish HospitalComment on above:Performed By: #### SAMUEL, THYR #### [facility] ([id number]) [address], [address] [place], [place] [address]FVJGU/HGBNegativeNormalNegTriHealth Good Samaritan HospitalComment on above:Performed By: #### SAMUEL, THYR #### [facility] ([id number]) [address], [address] [place], [place] [address]Gnoyb (U)YellowNormalYellow, ColorlessBellevue Hospital Comment on above:Performed By: #### SAMUEL, THYR #### [facility] ([id number]) [address], [address] [place], [place] [address]Nlzlxvg Ql (U)NegativeNormalNegativeBellevue Hospital Comment on above:Performed By: #### SAMUEL, THYR #### [facility] ([id number]) [address], [address] [place], [place] [address]Xjsyohw Ql (U)NegativeNormalNegTriHealth Good Samaritan Hospital Comment on above:Performed By: #### SAMUEL, THYR #### [facility] ([id number]) [address], [address] [place], [place] [address]Tmlydiatz esterase Test strip Ql (U)NegativeNormalNegative [facility] HospitalComment on above:Performed By: #### SAMUEL, THYR #### [facility] ([id number]) [address], [address] [place], [place] [address]Mzayfwq Ql (U)NegativeNormalNegativeBellevue Hospital Comment on above:Performed By: #### SAMUEL, THYR #### [facility] ([id number]) [address], [address] [place], [place] [address]CR,URINE6.8Fwjtvy0.0-8.5Pro[facility] Marinhealth Medical CenterComment on above:Performed By: #### SAMUEL, THYR #### [facility] ([id number]) [address], [address] [place], [place] [address]Mobcful Ql (U)NegativeNormalNegTriHealth Good Samaritan Hospital Comment on above:Performed By: #### SAMUEL, THYR #### [facility] ([id number]) [address], [address] [place], [place] [address]Qbuvluhd gravity (U) [Rel density]1.319Lxvive1.003-1.035 [facility] HospitalComment on above:Performed By: #### SAMUEL, THYR #### [facility] ([id number]) [address], [address] [place], [place] [address]NWRCMPOPWXwaubZbuhdyPpkfdWfxPniquw [facility]remont HospitalComment on above:Performed By: #### SAMUEL, THYR #### [facility] ([id number]) [address], [address] [place], [place] [address]AOCKHLEMWBQK<1.1 eu/dLNormal<1.1 eu/dLBellevue Hospital Comment on above:Performed By: #### SAMUEL, THYR #### [facility] ([id number]) [address], [address] [place], [place] [address]DPFLTON D 25 HYDROXYon 90-41-5604LCLYKVC D 25 HYD TOT19.9 ng/mL Low30.0-100.0[facility] on above:Order Comment: Vitamin D status 25 [place] Vitamin D D eficiency <20 ng/mLInsufficiency 20-29 ng/mLSufficiency 30-100 ng/mLToxicity >100 ng/mLNOTE: A pediatric reference range has not been established by the chief estimator of this kit. The [place] [employer] recommends a Vitamin D level of = or >20ng/mL in infants and children.Performed By: #### HA1C, THYR #### [facility] ([id number]) [address], [address] [place], [place] [address]PQH W Auto Differential panel (Bld)on 31-18-5613Fmlujlpyn (Bld) [#/Vol]10*3/uLNormal<0.11CHenry County Hospital on above:Order Comment: Specimen Type: BLOOD SPECIMENOrdering Facility: [facility] Address:[address] [place], [place] [address]Performed By: #### 52739- 8 ####[facility] LABCLIA [id number] [place], [place] [address]Tcvklonfi/100 WBC (Bld)0.2 %NormalTrinity Health System on above:Order Comment: Specimen Type: BLOOD SPECIMENOrdering Facility: [facility] Address:[address] [place], [place] [address]Performed By: #### 59232-0 ####[facility] LABCLIA [id number] [place], [place] [address]Rrzhqfutueoe cell count method Nom (Bld)AutoNormalCHenry County Hospital on above:Order Comment: Specimen Type: BLOOD SPECIMENOrdering Facility: [facility] Address:[address] [place], [place] [address]Performed By: #### 55842-5 ####[facility] LABCLIA [id number] [place], [place] [address]Vjvlhdggpur (Bld) [#/Vol]0.04 10*3/uLNormal<0.46[facility] on above:Order Comment: Specimen Type: BLOOD SPECIMENOrdering Facility: [facility] Address:[address] [place], [place] [address]Performed By: #### 25215-0 ####[facility] LABCLIA [id number] [place], [place] [address]Fwiwhoudxqt/100 WBC (Bld)0.8 %NormalOhio Valley HospitalComment on above:Order Comment: Specimen Type: BLOOD SPECIMENOrdering Facility: [facility] Address:[address] [place], [place] [address]Performed By: #### 77447-9 ####[facility] LABIA [id number] [place], [place] [address]Twylmbyqpvx distribution width (RBC) [Ratio]14.3 %Normal 11.5-15.0[facility] on above:Order Comment: Specimen Type: BLOOD SPECIMENOrdering Facility: [facility] Address:[address] [place], [place] [address]Performed By: #### 43911-7 ####[facility] LABIA [id number] [place] [address] Hematocrit (Bld) [Volume fraction]34.0 %Low36.0-46.0[facility] Comment on above:Order Comment: Specimen Type: BLOOD SPECIMENOrdering Facility: [facility] Address:[address] [place] [address] Performed By: #### 94247-3 ####[facility] LABIA [id number] [place], [place] [address]Zttitthdyz (Bld) [Mass/Vol]10.8 g/dLLow11.5-15.5CHenry County Hospital on above:Order Comment: Specimen Type: BLOOD SPECIMENOrdering Facility: [facility] Address:[address] [place], [place] [address]Performed By: #### 97282-8 ####[facility] LABCLIA [id number] [place], [place] [address]Dfdpluyq granulocytes (Bld) [#/Vol]10*3/uLNormal<0.10 [facility] on above:Order Comment: Specimen Type: BLOOD SPECIMENOrdering Facility: [facility] Address:[address] [place], [place] [address]Performed By: #### 72119-2 ####[facility] LABCLIA [id number] [place], [place] [address]Qmgrzkla granulocytes/100 WBC (Bld)0.2 %[facility] on above: Order Comment: Specimen Type: BLOOD SPECIMENOrdering Facility: [facility] Address:[address] [place], [place] [address]Performed By: #### 49122- 8 ####[facility] LABCLIA [id number] [place], [place] [address]Siwgixpkffi (Bld) [#/Vol]2.11 10*3/uLNormal1.00-4.00 [facility] on above:Order Comment: Specimen Type: BLOOD SPECIMENOrdering Facility: [facility] Address:[address] [place], [place] [address]Performed By: #### 52472-9 ####[facility] LABCLIA [id number] [place], [place] [address]Jxirvdtpsbx/100 WBC (Bld)43.2 %NormalTrinity Health System on above:Order Comment: Specimen Type: BLOOD SPECIMENOrdering Facility: [facility] Address:[address] [place], [place] [address]Performed By: #### 73782-7 ####[facility] LABCLIA [id number] [place], [place] [address]GNC (RBC) [Entitic mass]32.1 maFhhwhe30.0-34.0[facility] on above:Order Comment: Specimen Type: BLOOD SPECIMENOrdering Facility: [facility] Address:[address] [place], [place] [address]Performed By: #### 76211-3 ####[facility] LABCLIA [id number] [place], [place] [address]SOCN (RBC) [Mass/Vol]31.8 g/fQSbnihn88.5-36.0[facility] on above: Order Comment: Specimen Type: BLOOD SPECIMENOrdering Facility: [facility] Address:[address] [place], [place] [address]Performed By: #### 84235- 8 ####[facility] LABCLIA [id number] [place], [place] [address]PTG (RBC) [Entitic vol]101.2 xDHszq77.0-100.0[facility] on above:Order Comment: Specimen Type: BLOOD SPECIMENOrdering Facility: [facility] Address:[address] [place], [place] [address]Performed By: #### 53459-4 ####[facility] LABIA [id number] [place], [place] [address]Hfwjlbciv (Bld) [#/Vol]0.24 10*3/uLNormal<0.87[facility] on above:Order Comment: Specimen Type: BLOOD SPECIMENOrdering Facility: [facility] Address:[address] [place], [place] [address]Performed By: #### 20021- 8 ####[facility] LABIA [id number] [place], [place] [address]Audnrnvix/100 WBC (Bld)4.9 %NormalTrinity Health System on above:Order Comment: Specimen Type: BLOOD SPECIMENOrdering Facility: [facility] Address:[address] [place], [place] [address]Performed By: #### 88993-0 ####[facility] LABCLIA [id number] [place], [place] [address]Jxwatjevvuo (Bld) [#/Vol]2.47 10*3/uLNormal1.45-7.50[facility] on above:Order Comment: Specimen Type: BLOOD SPECIMENOrdering Facility: [facility] Address:[address] [place], [place] [address]Performed By: #### 76278-2 ####[facility] LABCLIA [id number] [place], [place] [address]Rnnkhszoajm/100 WBC (Bld)50.7 %NormalTrinity Health System on above:Order Comment: Specimen Type: BLOOD SPECIMENOrdering Facility: [facility] Address:[address] [place], [place] [address]Performed By: #### 21231-7 ####[facility] LABCLIA [id number] [place], [place] [address]Youwkmuno RBC (Bld) [#/Vol] 10*3/uLNormal<0.01[facility] on above:Order Comment: Specimen Type: BLOOD SPECIMENOrdering Facility: [facility] Address:[address] [place], [place] [address]Performed By: #### 05107-5 ####[facility] LABCLIA [id number] [place], [place] [address]Izteilxnm RBC/100 WBC (Bld) [Ratio]0.0 /100 WBCNormal [facility] on above:Order Comment: Specimen Type: BLOOD SPECIMENOrdering Facility: [facility] Address:[address] [place], [place] [address]Performed By: #### 43504-2 ####[facility] LABCLIA [id number] [place], [place] [address]Alsrnhhh mean volume (Bld) [Entitic vol]9.3 fLNormal9.0-12.7CHenry County Hospital on above:Order Comment: Specimen Type: BLOOD SPECIMENOrdering Facility: [facility] Address:[address] [place] [address] Performed By: #### 38285-4 ####[facility] LABCLIA [id number] [place], [place] [address]Ydryrbkdg (Bld) [#/Vol]163 10*3/lGQficks777-505ZjuhfmahsTrinity Health System on above:Order Comment: Specimen Type: BLOOD SPECIMENOrdering Facility: [facility] Address:[address] [place], [place] [address]Performed By: #### 88251-0 ####[facility] LABCLIA [id number] [place], [place] [address]MGE (Bld) [#/Vol]3.36 10*6/uLLow3.90-5.20[facility] on above:Order Comment: Specimen Type: BLOOD SPECIMENOrdering Facility: [facility] Address:[address] [place], [place] [address]Performed By: #### 24527-8 ####[facility] LABCLIA [id number] [place], [place] [address]FNX (Bld) [#/Vol]4.88 10*3/uL Normal3.70-11.00[facility] on above:Order Comment: Specimen Type: BLOOD SPECIMENOrdering Facility: [facility] Address:[address] [place], [place] [address]Performed By: #### 10467-2 ####[facility] LABCLIA [id number] [place], [place] [address]AS LUMBAR SPINE 2 OR 3Von 12-34-3569[address] [address] XRay Report Signed Patient: ANDREI FISH MR#: [id number] : 1950 Acct:[id number] Age/Sex: 74 / F ADM Date: 01/15/25 Loc: RAD 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 01/15/2025 4:25 PM Dictation Location: [place] [address] Electronically authenticated by: [id number] Y Date: 01/15/2025 16:25 Dictated By: Valentin Peralta D.O. Signed By: 01/15/258 DD/ 24 TD/TT: Marketing Services Rep:TBHRadiology, Radiologist, - 01/15/2025 [facility] [place] [id number] XRay Report Signed Patient: ANDREI FISH MR#: [id number] : 1950 Acct:[id number] Age/Sex: 74 / F ADM Date: 01/15/25 Loc: [facility] Attending Dr: Stephanie Dumont NP Ordering Physician: Stephanie Dumont NP Date of Service: 01/15/25 Procedure(s): XR lumbar spine 2-3V Accession Number(s): [id number] cc: Stephanie Dumont NP [facility] [place] [id number] Patient Name: ANDREI FISH MRN: [id number] date: 1950 Sex: F Assigned Patient Location: [facility] Current Patient Location: [facility] Accession/Order Number: [id number] Exam Date: 01/15/2025 16:23 Report Date: 01/15/2025 [...] Peralta M.D. 01/15/2025 4:25 PM Dictation Location: [place] [address] Electronically authenticated by: [id number] Y Date: 01/15/2025 16:25 Dictated By: Valentin Peralta D.O. Signed By: 01/15/251627 DD/ 24 TD/TT: Marketing Services Rep: [facility] HealthcareRadiology Study observation (narrative)[facility]OM[facility] HealthcareXR LUMBAR SPINE 2 OR 3VOrdered By: Radiologist Radiology on 67-82-7302[facility] Work Phone: cbc W Auto Differential panel (Bld)on 01-03-2025 Basophils (Bld) [#/Vol]10*3/uLNormal<0.11CHenry County Hospital on above:Order Comment: Specimen Type: BLOOD SPECIMENOrdering Facility: [facility] Address:[address] [place], [place] [address]Performed By: #### 28286-1 ####[facility] LABCLIA [id number] [place], [place] [address]Dustkxjmz/100 WBC (Bld)0.4 %NormalTrinity Health System on above:Order Comment: Specimen Type: BLOOD SPECIMENOrdering Facility: [facility] Address:[address] [place], [place] [address]Performed By: #### 95475-4 ####[facility] LABCLIA [id number] [place], [place] [address]Sihxmvntwbxg cell count method Nom (Bld)AutoNormalCHenry County Hospital on above:Order Comment: Specimen Type: BLOOD SPECIMENOrdering Facility: [facility] Address:[address] [place], [place] [address]Performed By: #### 19923-9 ####[facility] LABCLIA [id number] [place], [place] [address]Hsmlpqxwxbb (Bld) [#/Vol]0.04 10*3/uLNormal<0.46[facility] on above:Order Comment: Specimen Type: BLOOD SPECIMENOrdering Facility: [facility] Address:[address] [place], [place] [address]Performed By: #### 22286-2 ####[facility] LABCLIA [id number] [place], [place] [address]Pyrvfnjchwv/100 WBC (Bld)0.8 %NormalTrinity Health System on above:Order Comment: Specimen Type: BLOOD SPECIMENOrdering Facility: [facility] Address:[address] [place], [place] [address]Performed By: #### 05384-5 ####[facility] LABCLIA [id number] [place], [place] [address]Nczirfydvaq distribution width (RBC) [Ratio]14.8 %Normal 11.5-15.0[facility] on above:Order Comment: Specimen Type: BLOOD SPECIMENOrdering Facility: [facility] Address:[address] [place], [place] [address]Performed By: #### 61905-0 ####[facility] LABCLIA [id number] [place] [address] Hematocrit (Bld) [Volume fraction]32.9 %Low36.0-46.0[facility] Comment on above:Order Comment: Specimen Type: BLOOD SPECIMENOrdering Facility: [facility] Address:[address] [place] [address] Performed By: #### 49146-0 ####[facility] LABIA [id number] [place], [place] [address]Kdclkchbwv (Bld) [Mass/Vol]10.6 g/dLLow11.5-15.5CHenry County Hospital on above:Order Comment: Specimen Type: BLOOD SPECIMENOrdering Facility: [facility] Address:[address] [place], [place] [address]Performed By: #### 74308-9 ####[facility] LABIA [id number] [place], [place] [address]Uovfitsz granulocytes (Bld) [#/Vol]10*3/uLNormal<0.10 [facility] on above:Order Comment: Specimen Type: BLOOD SPECIMENOrdering Facility: [facility] Address:[address] [place], [place] [address]Performed By: #### 55474-9 ####[facility] LABCLIA [id number] [place], [place] [address]Qakpgwpz granulocytes/100 WBC (Bld)0.2 %NormalTrinity Health System on above: Order Comment: Specimen Type: BLOOD SPECIMENOrdering Facility: [facility] Address:[address] [place], [place] [address]Performed By: #### 49622- 8 ####[facility] LABIA [id number] [place], [place] [address]Jneegjrouhg (Bld) [#/Vol]2.42 10*3/uLNormal1.00-4.00 [facility] on above:Order Comment: Specimen Type: BLOOD SPECIMENOrdering Facility: [facility] Address:[address] [place], [place] [address]Performed By: #### 27773-1 ####[facility] LABIA [id number] [place], [place] [address]Fedoodvmqtz/100 WBC (Bld)46.4 %NormalTrinity Health System on above:Order Comment: Specimen Type: BLOOD SPECIMENOrdering Facility: [facility] Address:[address] [place], [place] [address]Performed By: #### 64794-7 ####[facility] LABIA [id number] [place], [place] [address]AVK (RBC) [Entitic mass]31.9 pjTophew64.0-34.0[facility] on above:Order Comment: Specimen Type: BLOOD SPECIMENOrdering Facility: [facility] Address:[address] [place], [place] [address]Performed By: #### 52168-8 ####[facility] LABIA [id number] [place], [place] [address]AQDQ (RBC) [Mass/Vol]32.2 g/zUWgdcqm92.5-36.0[facility] on above: Order Comment: Specimen Type: BLOOD SPECIMENOrdering Facility: [facility] Address:[address] [place], [place] [address]Performed By: #### 41730- 8 ####[facility] LABCLIA [id number] [place], [place] [address]FIN (RBC) [Entitic vol]99.1 fEVetkwr50.0-100.0[facility] on above:Order Comment: Specimen Type: BLOOD SPECIMENOrdering Facility: [facility] Address:[address] [place], [place] [address]Performed By: #### 50066-0 ####[facility] LABCLIA [id number] [place], [place] [address]Havvsvckn (Bld) [#/Vol]0.24 10*3/uLNormal<0.87[facility] on above:Order Comment: Specimen Type: BLOOD SPECIMENOrdering Facility: [facility] Address:[address] [place], [place] [address]Performed By: #### 32559- 8 ####[facility] LABCLIA [id number] [place], [place] [address]Uknvhpdcq/100 WBC (Bld)4.6 %NormalTrinity Health System on above:Order Comment: Specimen Type: BLOOD SPECIMENOrdering Facility: [facility] Address:[address] [place], [place] [address]Performed By: #### 57456-2 ####[facility] LABCLIA [id number] [place], [place] [address]Kyvbahplmyw (Bld) [#/Vol]2.49 10*3/uLNormal1.45-7.50[facility] on above:Order Comment: Specimen Type: BLOOD SPECIMENOrdering Facility: [facility] Address:[address] [place], [place] [address]Performed By: #### 59535-2 ####[facility]ITALJO[facility] ROBERT[facility] LABCLIA [id number] [place], [place] [address]Uuvmwuexflc/100 WBC (Bld)47.6 %NormalTrinity Health System on above:Order Comment: Specimen Type: BLOOD SPECIMENOrdering Facility: [facility] Address:[address] [place], [place] [address]Performed By: #### 64193-3 ####[facility] LABCLIA [id number] [place], [place] [address]Inmpkkqna RBC (Bld) [#/Vol] 10*3/uLNormal<0.01[facility] on above:Order Comment: Specimen Type: BLOOD SPECIMENOrdering Facility: [facility] Address:[address] [place], [place] [address]Performed By: #### 37559-8 ####[facility]ITALJO[facility] LABCLIA [id number] [place], [place] [address]Rengauwbg RBC/100 WBC (Bld) [Ratio]0.0 /100 WBCNormal [facility] on above:Order Comment: Specimen Type: BLOOD SPECIMENOrdering Facility: [facility] Address:[address] [place], [place] [address]Performed By: #### 80492-7 ####[facility]ITALJO[facility] LABCLIA [id number] [place], [place] [address]Scrupykl mean volume (Bld) [Entitic vol]8.7 fLLow9.0-12.7CHenry County Hospital on above:Order Comment: Specimen Type: BLOOD SPECIMENOrdering Facility: [facility] Address:[address] [place], [place] [address]Performed By: #### 47433-6 ####[facility]ITALJO[facility] LABCLIA [id number] [place], [place] [address]Uflfvembi (Bld) [#/Vol]132 10*3/sEJoz312-711CxlizzklcTrinity Health System on above:Order Comment: Specimen Type: BLOOD SPECIMENOrdering Facility: [facility] Address:[address] [place], [place] [address]Performed By: #### 09388-8 ####[facility]ITAL[facility] LABCLIA [id number] [place], [place] [address]BGC (Bld) [#/Vol]3.32 10*6/uLLow3.90-5.20[facility] HospitalComment on above:Order Comment: Specimen Type: BLOOD SPECIMENOrdering Facility: [facility] Address:[address] [place], [place] [address]Performed By: #### 94619- 8 ####[facility] LABCLIA [id number] [place], [place] [address]AMM (Bld) [#/Vol]5.22 10*3/uLNormal3.70-11.00[facility] on above:Order Comment: Specimen Type: BLOOD SPECIMENOrdering Facility: [facility] Address:[address] [place], [place] [address]Performed By: #### 03293-2 ####[facility] LABIA [id number] [place], [place] [address]NPYZJIex [id number] Clinic ClevelandComprehensive metabolic 2000 panelon [id number] [Mass/Vol]3.7 g/dLLow3.9-4.9CTriHealth Comment on above:Order Comment: Specimen Type: BLOOD SPECIMENOrdering Facility: [facility] Address:[address] [place] [address] Performed By: #### 3016-3 ####[facility] LABCLIA [id number] [place] [address] [place]#### 94409-5 ####[facility] LABCLIA [id number] [place], [place] [address]LQA [Catalytic activity/Vol]79 U/LNormal 34-123[facility] on above:Order Comment: Specimen Type: BLOOD SPECIMENOrdering Facility: [facility] Address:[address] [place], [place] [address]Performed By: #### 3016-3 ####[facility] LABCLIA [id number] [place] [address] [place]#### 48562-2 ####[facility] LABCLIA [id number] [place], [place] [address]PGS [Catalytic activity/Vol]11 U/LNormal7-38Ohio Valley HospitalComment on above:Order Comment: Specimen Type: BLOOD SPECIMENOrdering Facility: [facility] Address:[address] [place], [place] [address]Performed By: #### 3016-3 ####[facility] LABCLIA [id number] [place] [address] [place]#### 51703-1 ####[facility] [place] BCLIA [id number] [place], [place] [address]Ahiam gap [Moles/Vol]8 mmol/LNormal8-15[facility] on above:Order Comment: Specimen Type: BLOOD SPECIMENOrdering Facility: [facility] Address:[address] [place], [place] [address]Performed By: #### 3016-3 ####[facility] LABCLIA [id number] [place] [address] [place]#### 04523-8 ####[facility] LABCLIA [id number] [place], [place] [address]RDI [Catalytic activity/Vol]18 U/PPpljqn87-95YiatpmqnmOhio Valley Hospital Comment on above:Order Comment: Specimen Type: BLOOD SPECIMENOrdering Facility: [facility] Address:[address] [place] [address] Performed By: #### 3016-3 ####[facility] LABCLIA [id number] [place] [address] [place] [facility]#### 96148-6 ####[facility] LABCLIA [id number] [place], [place] [address]Wikupuzyb [Mass/Vol]0.3 mg/dLNormal0.2-1.3 [facility] on above:Order Comment: Specimen Type: BLOOD SPECIMENOrdering Facility: [facility] Address:[address] [place], [place] [address]Performed By: #### 3016-3 ####[facility] LABCLIA [id number] [place] [address] [place]#### 25891-7 ####[facility] LABCLIA [id number] [place], [place] [address]Wflhjzr [Mass/Vol]9.5 mg/dLNormal8.5-10.2 [facility] on above:Order Comment: Specimen Type: BLOOD SPECIMENOrdering Facility: [facility] Address:[address] [place], [place] [address]Performed By: #### 3016-3 ####[facility] LABCLIA [id number] [place] [address] [place]#### 49021-9 ####[facility] LABCLIA [id number] [place], [place] [address]Mgctaofe [Moles/Vol]107 mmol/MUxnfaz23-181 [facility] on above:Order Comment: Specimen Type: BLOOD SPECIMENOrdering Facility: [facility] Address:[address] [place], [place] [address]Performed By: #### 3016-3 ####[facility] LABCLIA [id number] [place] [address] [place]#### 82242-7 ####[facility] LABCLIA [id number] [place], [place] [address]KW8 [Moles/Vol]23 mmol/DXioboz47-56RfykrxfnsTrinity Health System on above:Order Comment: Specimen Type: BLOOD SPECIMENOrdering Facility: [facility] Address:[address] [place], [place] [address]Performed By: #### 3016-3 ####[facility] LABCLIA [id number] [address]#### 49061-6 ####[facility] LABCLIA [id number] [place], [place] [address]Ljrbajlolv [Mass/Vol]1.53 mg/dLHigh0.58-0.96 [facility] on above:Order Comment: Specimen Type: BLOOD SPECIMENOrdering Facility: [facility] Address:[address] [place], [place] [address]Performed By: #### 3016-3 ####[facility] LABCLIA [id number] [address] OF [place]#### 89318-3 ####[facility] LABCLIA [id number] [place], [place] [address]Puzccjvefv and Glomerular filtration rate.predicted panel (S/P/Bld)36 mL/min/1.73m???Low>=60[facility] on above:Order Comment: Specimen Type: BLOOD SPECIMENOrdering Facility: [facility] Address:[address] [place], [place] [address]Result Comment: Estimated Glomerular Filtration Rate (eGFR) is calculated using the 2020 CKD-EPI creatinine equation. This equation utilizes serum creatinine, sex, and age as parameters. The creatinine assay has traceable calibration to isotope dilution-mass spectrometry. Refer to KDIGO guidelines for clinical interpretation. In patients with unstable renal function, e.g. those with acute kidney injury, the eGFR may not accurately reflect actual GFR. Performed By: #### 3016-3 ####[facility] LABCLIA [id number] [place] [address] [place]#### 05576-5 ####[facility] LABCLIA [id number] [place], [place] [address]Roxamvl [Mass/Vol]103 mg/uJWzgn53-64 [facility] Valley HospitalComment on above:Order Comment: Specimen Type: BLOOD SPECIMENOrdering Facility: [facility] Address:[address] [place], [place] [address]Result Comment: The [place] Diabetes Association (ADA) provides guidance for cutoff [...] unequivocal hyperglycemia, results should be confirmed by repeattesting. In a patient with classic symptoms of hyperglycemia or hyperglycemic crisis, random plasmaglucose results greater than or equal to 200 mg/dL meet the criteria for diagnosis of diabetes.Reference: Standards of Medical Care in Diabetes 2016, [place] [employer] Association. Diabetes Care. 2016.39(Suppl 1).Performed By: #### 3016-3 ####[facility] LABCLIA [id number] [place] [address] [place]#### 88257-7 ####[facility] LABCLIA [id number] [place], [place] [address]Uaeydpjaw [Moles/Vol]4.1 mmol/LNormal3.7-5.1CTriHealth Comment on above:Order Comment: Specimen Type: BLOOD SPECIMENOrdering Facility: [facility] Address:[address] [place] [address] Performed By: #### 3016-3 ####[facility] LABCLIA [id number] [place] [address] [place]#### 50070-3 ####[facility] HOSPITALJOSE ROBERTO [facility] LABCLIA [id number] [place], [place] [address]Tfopmxc [Mass/Vol]7.3 g/dLNormal6.3-8.0 [facility] on above:Order Comment: Specimen Type: BLOOD SPECIMENOrdering Facility: [facility] Address:[address] [place], [place] [address]Performed By: #### 3016-3 ####[facility] LABCLIA [id number] [address] [place]#### 15580-9 ####[facility] LABCLIA [id number] [place], [place] [address]Twjura [Moles/Vol]138 mmol/YEeeuix087-313 [facility] on above:Order Comment: Specimen Type: BLOOD SPECIMENOrdering Facility: [facility] Address:[address] [place], [place] [address]Performed By: #### 3016-3 ####[facility] LABCLIA [id number] [address] [place]#### 96397-5 ####[facility] LABCLIA [id number] [place], [place] [address]Vdsd nitrogen [Mass/Vol]46 mg/dLHigh7-21 [facility] on above:Order Comment: Specimen Type: BLOOD SPECIMENOrdering Facility: [facility] Address:[address] [place], [place] [address]Performed By: #### 3016-3 ####[facility] LABCLIA [id number] [place] [address] [place]#### 51021-3 ####[facility] LABCLIA [id number] [place], [place] [address]Ttwustpf Christen 64-25-2399Eplakcsk [Mass/Vol]63.6 ng/eNKntgcc37.7-205.1CHenry County Hospital on above: Order Comment: Specimen Type: BLOOD SPECIMENOrdering Facility: [facility] Address:[address] [place], [place] [address]Performed By: #### 2276- 4, 2284-8, 21487-7, 2132-03 ####[facility] LABCLIA [id number] [place] [address] [place] AMERICAFolate SerPl-mCncon 68-48-8946Sqwnyv [Mass/Vol]4.1 ng/mLLow>4.7CHenry County Hospital on above:Order Comment: Specimen Type: BLOOD SPECIMENOrdering Facility: [facility] Address:[address] [place], [place] [address]Performed By: #### 2276-4, 2284-8, 53305-9, 2132-03 ####[facility] LABCLIA [id number] [place] [address] [place] AMERICAIron and Iron binding capacity panelon 31-72-3878Rbob [Mass/Vol]57 ug/yJRcwyei90-840LizqnbbcrOhio Valley HospitalCommunson medical center on above:Order Comment: Specimen Type: BLOOD SPECIMENOrdering Facility: [facility] Address:[address] [place], [place] [address]Performed By: #### 2276- 4, 2284-8, 80593-9, 2132-03 ####[facility] LABCLIA [id number] [place] [address] [place] AMERICAIron binding capacity [Mass/Vol]316 ug/gXNwanek630-187LmaufodozOhio Valley Hospital Comment on above:Order Comment: Specimen Type: BLOOD SPECIMENOrdering Facility: [facility] Address:[address] [place] [address] Performed By: #### 2276-4, 2284-8, 41407-1, 2132-03 ####[facility] LABCLIA [id number] [facility] [id number] [place] [address] [place] AMERICAIron/TIBC [Molar ratio]18.0 %Bdguhg59.0-57.0Ohio Valley HospitalCommunson medical center on above:Order Comment: Specimen Type: BLOOD SPECIMENOrdering Facility: [facility] Address:[address] [place], [place] [address]Performed By: #### 2276-4, 2284-8, 62518-9, 2132-03 ####[facility] LABCLIA [id number] [facility] [id number] [place] [address] [place] AMERICATHYROID STIMULATING HORMONEon 03-09-9179LPB Qn0.371 m[IU]/LCUniversity [facility]als [facility] Qnon 10-96-3758Gavvdnizdyigpt and review of laboratory resultsNormalCKettering Health Dayton SerPl-aCncon 03-63-3830PAS Qn0.371 m[IU]/LNormal0.270-4.200Ohio Valley HospitalComment on above:Order Comment: Specimen Type: BLOOD SPECIMENOrdering Facility: [facility] Address:[address] [place] [address] Performed By: #### 3016-3 ####[facility] LABCLIA [id number] [address] [address] [place]#### 97665-4 ####[facility] LABCLIA [id number] [place], [place] [address]Xxs B12 SerPl-mCncon 75-75-3977Vbmcvegnt (Vitamin B12) [Mass/Vol]1229 pg/dWDusgvp721-7386Foifuazug Clinic [facility] Comment on above:Order Comment: Specimen Type: BLOOD SPECIMENOrdering Facility: [facility] Address:[address] [place], [place] [address] Performed By: #### 2276-4, 2284-8, 84454-6, 9 ####[facility] LABCLIA [id number] [place] [address] [place] [facility] COLI SHIGA TOXIN EIAon 12-27-2024E COLI SHIGA TOXIN EIA E coli Shiga Toxin EIA [facility] HealthcareE COLI SHIGA TOXIN EIANegativeNOMN HealthcareE COLI SHIGA TOXIN EIAPerformed at: - [facility] HealthcareE COLI SHIGA TOXIN [id number] [place], [place] [id number] HealthcareE COLI SHIGA TOXIN EIALab Director: Danilo Garrett PhD, Phone: [phone] Specialty HospitalCLINISYNCNOMS FqiyluymwuCkN1z (Bld) [Mass fraction]on 30-71-7429Nnvprhdbvfstpj and review of laboratory resultsNormalLake Norman Regional Medical CenterLaboratory - Hematology and Cell countson 90-88-6960PtY7l (Bld) [Mass fraction]5.7 %NOMS HealthcareCBC W Auto Differential panel (Bld)on 05-86-7061Ieebfusmp (Bld) [#/Vol]10*3/uLNormal <0.11CHenry County Hospital on above:Order Comment: Specimen Type: BLOOD SPECIMENOrdering Facility: [facility] Address:[address] [place], [place] [address]Performed By: #### 22801-7 ####[facility] LABIA [id number] [place] [address] Basophils/100 WBC (Bld)0.0 %NormalTrinity Health System on above: Order Comment: Specimen Type: BLOOD SPECIMENOrdering Facility: [facility] Address:[address] [place], [place] [address]Performed By: #### 17869- 8 ####[facility] LABCLIA [id number] [place], [place] [address]Dnqskupvojke cell count method Nom (Bld)AutoNormal [facility] on above:Order Comment: Specimen Type: BLOOD SPECIMENOrdering Facility: [facility] Address:[address] [place], [place] [address]Performed By: #### 25291-9 ####[facility] LABCLIA [id number] [place], [place] [address]Jvhkzzfpzhg (Bld) [#/Vol]0.04 10*3/uLNormal<0.46[facility] on above: Order Comment: Specimen Type: BLOOD SPECIMENOrdering Facility: [facility] Address:[address] [place], [place] [address]Performed By: #### 93413- 8 ####[facility] LABCLIA [id number] [place], [place] [address]Ooniktvjumc/100 WBC (Bld)0.8 %NormalTrinity Health System on above:Order Comment: Specimen Type: BLOOD SPECIMENOrdering Facility: [facility] Address:[address] [place], [place] [address]Performed By: #### 05310-9 ####[facility] LABIA [id number] [place], [place] [address]Wxzpcofpfea distribution width (RBC) [Ratio]14.3 %Llaipm78.5-15.0[facility] on above: Order Comment: Specimen Type: BLOOD SPECIMENOrdering Facility: [facility] Address:[address] [place], [place] [address]Performed By: #### 24019- 8 ####[facility] LABCLIA [id number] [place], [place] [address]Pusgkkwrna (Bld) [Volume fraction]33.8 %Low36.0-46.0 [facility] on above:Order Comment: Specimen Type: BLOOD SPECIMENOrdering Facility: [facility] Address:[address] [place], [place] [address]Performed By: #### 28973-1 ####[facility] LABIA [id number] [place], [place] [address]Banjzgatze (Bld) [Mass/Vol]10.8 g/dLLow11.5-15.5CHenry County Hospital on above:Order Comment: Specimen Type: BLOOD SPECIMENOrdering Facility: [facility] Address:[address] [place], [place] [address]Performed By: #### 38651- 8 ####FAYETTEVILLESHABBIRJOSE ROBERTO [facility] LABCLIA [id number] [place], [place] [address]Hbcdbtso granulocytes (Bld) [#/Vol]10*3/uLNormal<0.10 [facility] on above:Order Comment: Specimen Type: BLOOD SPECIMENOrdering Facility: [facility] Address:[address] [place], [place] [address]Performed By: #### 56177-1 ####LALITA [facility] LABCLIA [id number] [place], [place] [address]Yrfzllss granulocytes/100 WBC (Bld)0.4 %[facility] on above: Order Comment: Specimen Type: BLOOD SPECIMENOrdering Facility: [facility] Address:[address] [place], [place] [address]Performed By: #### 81145- 8 ####FAYETTEVILLEKAYCE [facility] LABCLIA [id number] [place], [place] [address]Zoftyppbvpa (Bld) [#/Vol]1.86 10*3/uLNormal1.00-4.00 [facility] on above:Order Comment: Specimen Type: BLOOD SPECIMENOrdering Facility: [facility] Address:[address] [place], [place] [address]Performed By: #### 17558-9 ####CHEVYORJOSE ROBERTO [facility] LABCLIA [id number] [place], [place] [address]Gklchkzfdgt/100 WBC (Bld)38.9 %NormalTrinity Health System on above:Order Comment: Specimen Type: BLOOD SPECIMENOrdering Facility: [facility] Address:[address] [place], [place] [address]Performed By: #### 27009-5 ####[facility] LABCLIA [id number] [place], [place] [address]EQT (RBC) [Entitic mass]32.5 mhSivoqn51.0-34.0[facility] on above:Order Comment: Specimen Type: BLOOD SPECIMENOrdering Facility: [facility] Address:[address] [place], [place] [address]Performed By: #### 76928-2 ####[facility] LABCLIA [id number] [place], [place] [address]UGAU (RBC) [Mass/Vol]32.0 g/aVLxfjzz17.5-36.0[facility] on above: Order Comment: Specimen Type: BLOOD SPECIMENOrdering Facility: [facility] Address:[address] [place], [place] [address]Performed By: #### 99993- 8 ####[facility] LABIA [id number] [place], [place] [address]QXA (RBC) [Entitic vol]101.8 vVSjog92.0-100.0[facility] on above:Order Comment: Specimen Type: BLOOD SPECIMENOrdering Facility: [facility] Address:[address] [place], [place] [address]Performed By: #### 63319-9 ####[facility] LABIA [id number] [place], [place] [address]Gzefsjqhg (Bld) [#/Vol]0.22 10*3/uLNormal<0.87[facility] on above:Order Comment: Specimen Type: BLOOD SPECIMENOrdering Facility: [facility] Address:[address] [place], [place] [address]Performed By: #### 88670- 8 ####[facility] LABIA [id number] [place], [place] [address]Sbscnmhjh/100 WBC (Bld)4.6 %NormalTrinity Health System on above:Order Comment: Specimen Type: BLOOD SPECIMENOrdering Facility: [facility] Address:[address] [place], [place] [address]Performed By: #### 90009-9 ####[facility] LABCLIA [id number] [place], [place] [address]Vhenyemczdl (Bld) [#/Vol]2.64 10*3/uLNormal1.45-7.50[facility] on above:Order Comment: Specimen Type: BLOOD SPECIMENOrdering Facility: [facility] Address:[address] [place], [place] [address]Performed By: #### 81310-5 ####[facility] LABCLIA [id number] [place], [place] [address]Ehnieuwzpwc/100 WBC (Bld)55.3 %NormalTrinity Health System on above:Order Comment: Specimen Type: BLOOD SPECIMENOrdering Facility: [facility] Address:[address] [place], [place] [address]Performed By: #### 58399-2 ####[facility] LABCLIA [id number] [place], [place] [address]Lfxglnjmw RBC (Bld) [#/Vol] 10*3/uLNormal<0.01[facility] on above:Order Comment: Specimen Type: BLOOD SPECIMENOrdering Facility: [facility] Address:[address] [place], [place] [address]Performed By: #### 61446-9 ####[facility] LABCLIA [id number] [place], [place] [address]Rmcpptxfi RBC/100 WBC (Bld) [Ratio]0.0 /100 WBCNormal [facility] on above:Order Comment: Specimen Type: BLOOD SPECIMENOrdering Facility: [facility] Address:[address] [place], [place] [address]Performed By: #### 71253-3 ####[facility] LABCLIA [id number] [place] [address]Rtrhrjtp mean volume (Bld) [Entitic vol]8.9 fLLow9.0-12.7CHenry County Hospital on above:Order Comment: Specimen Type: BLOOD SPECIMENOrdering Facility: [facility] Address:[address] [place], [place] [address]Performed By: #### 91527-3 ####[facility] LABCLIA [id number] [place], [place] [address]Jvquahghn (Bld) [#/Vol]156 10*3/oHZkweam210-774OgrtdwkmfTrinity Health System on above:Order Comment: Specimen Type: BLOOD SPECIMENOrdering Facility: [facility] Address:[address] [place], [place] [address]Performed By: #### 35992-3 ####[facility] LABCLIA [id number] [place], [place] [address]CUY (Bld) [#/Vol]3.32 10*6/uLLow3.90-5.20[facility] on above:Order Comment: Specimen Type: BLOOD SPECIMENOrdering Facility: [facility] Address:[address] [place], [place] [address]Performed By: #### 96674- 8 ####[facility] LABCLIA [id number] [place], [place] [address]RVX (Bld) [#/Vol]4.78 10*3/uLNormal3.70-11.00[facility] on above:Order Comment: Specimen Type: BLOOD SPECIMENOrdering Facility: [facility] Address:[address] [place], [place] [address]Performed By: #### 00086-8 ####[facility] LABCLIA [id number] [place], [place] [address]IK CHEST WO CON on 59-71-39[address] [address] [address] Scan Report Signed Patient: ANDREI FISH MR#: [id number] : 1950 Acct:[id number] Age/Sex: 74 / F ADM Date: 12/12/24 Loc: CT Attending Dr: Stephanie Dumont NP Ordering Physician: Stephanie Dumont NP Date of Service: 12/12/24 Procedure(s): CT chest wo con Accession Number(s): [id number] cc: Stephanie Dumont NP [place] [id number] Patient Name: ANDREI FISH MRN: [facility]:[id number] date: 1950 Sex: F Assigned Patient Location: CT Current Patient Location: CT Accession/Order Number: [id number] Exam Date: 12/12/2024 16:06 Report Date: 12/12/2024 [...] Peralta M.D. 12/12/2024 4:12 PM Dictation Location: [place] [address] Electronically authenticated by: [id number] Y Date: 12/12/2024 16:12 Dictated By: Valentin Peralta D.O. Signed By: 12/12/241613 DD/ 11 TD/TT: Marketing Services Rep:TBHRadiology, Radiologist, MD - 12/12/2024 [place] [address] CT Scan Report Signed Patient: ANDREI FISH MR#: [id number] : 1950 Acct:[id number] Age/Sex: 74 / F ADM Date: 12/12/24 Loc: CT Attending Dr: Stephanie Dumont NP Ordering Physician: Stephanie Dumont NP Date of Service: 12/12/24 Procedure(s): CT chest wo con Accession Number(s): [id number] cc: Stephanie Dumont NP [place] [address] Patient Name: ANDREI FISH MRN: [facility]:[id number] date: 1950 Sex: F Assigned Patient Location: CT Current Patient Location: CT Accession/Order Number: [id number] Exam Date: 12/12/2024 16:06 Report Date: 12/12/2024 [...] Peralta M.D. 12/12/2024 4:12 PM Dictation Location: [facility] Electronically authenticated by: [id number] Y Date: 12/12/2024 16:12 Dictated By: Valentin Peralta D.O. Signed By: 12/12/241613 DD/ 11 TD/TT: Marketing Services Rep: [facility] HealthcareRadiology Study observation (narrative)[facility] HealthcareCT CHEST WO CONOrdered By: Radiologist Radiology on 38-46-5362[facility] Work Phone: cbc W Auto Differential panel (Bld)on 2024 Basophils (Bld) [#/Vol]10*3/uLNormal<0.11CHenry County Hospital on above:Order Comment: Specimen Type: BLOOD SPECIMENOrdering Facility: [facility] Address:[address] [place], [place] [address]Performed By: #### 58292-3, 98679-4 ####[facility] LABCLIA [id number] [place], [place] [address]Rqvmhxmgl/100 WBC (Bld)0.2 %NormalTrinity Health System on above:Order Comment: Specimen Type: BLOOD SPECIMENOrdering Facility: [facility] Address:[address] [place], [place] [address]Performed By: #### 32484-1, 26716-8 ####[facility] LABCLIA [id number] [place] [address] Differential cell count method Nom (Bld)AutoNormalClevelNovant Health Mint Hill [facility] Center Comment on above:Order Comment: Specimen Type: BLOOD SPECIMENOrdering Facility: [facility] Address:[address] [place] [address] Performed By: #### 93035-9, 19002-2 ####[facility] LABCLIA [id number] [place], [place] [address]Odfqyrvsjzc (Bld) [#/Vol]0.05 10*3/uLNormal<0.46Ohio Valley HospitalComment on above:Order Comment: Specimen Type: BLOOD SPECIMENOrdering Facility: [facility] Address:[address] [place], [place] [address]Performed By: #### 88241- 0, 26975-2 ####[facility] LABCLIA [id number] [place], [place] [address]Vxxvetxpdyh/100 WBC (Bld)0.9 %NormalOhio Valley HospitalComment on above:Order Comment: Specimen Type: BLOOD SPECIMENOrdering Facility: [facility] Address:[address] [place], [place] [address]Performed By: #### 70613-3, 60051-9 ####[facility] LABCLIA [id number] [place] [address] Erythrocyte distribution width (RBC) [Ratio]14.0 %Sppurl90.5-15.0Ohio Valley HospitalCommunson medical center on above:Order Comment: Specimen Type: BLOOD SPECIMENOrdering Facility: [facility] Address:[address] [place], [place] [address]Performed By: #### 74866-3, 33145-8 ####[facility] LABCLIA [id number] [place] [address] Hematocrit (Bld) [Volume fraction]32.4 %Low36.0-46.0[facility] Comment on above:Order Comment: Specimen Type: BLOOD SPECIMENOrdering Facility: [facility] Address:[address] [place] [address] Performed By: #### 10989-1, 41474-5 ####[facility] LABCLIA [id number] [place], [place] [address]Wffvmqmlgz (Bld) [Mass/Vol]10.4 g/dLLow11.5-15.5CTriHealthComment on above:Order Comment: Specimen Type: BLOOD SPECIMENOrdering Facility: [facility] Address:[address] [place], [place] [address]Performed By: #### 81302- 0, 08665-1 ####[facility] LABCLIA [id number] [place], [place] [address]Fevrlash granulocytes (Bld) [#/Vol]10*3/uLNormal <0.10[facility] on above:Order Comment: Specimen Type: BLOOD SPECIMENOrdering Facility: [facility] Address:[address] [place], [place] [address]Performed By: #### 60110-5, 07837-5 ####[facility] LABIA [id number] [place], [place] [address]Eodmtyxf granulocytes/100 WBC (Bld)0.2 %NormalOhio Valley Hospital Comment on above:Order Comment: Specimen Type: BLOOD SPECIMENOrdering Facility: [facility] Address:[address] [place] [address] Performed By: #### 10796-2, 01948-9 ####[facility] LABCLIA [id number] [place], [place] [address]Svatpqpiuqo (Bld) [#/Vol]2.47 10*3/uLNormal1.00-4.00[facility] on above: Order Comment: Specimen Type: BLOOD SPECIMENOrdering Facility: [facility] Address:[address] [place], [place] [address]Performed By: #### 38973- 0, 00329-7 ####[facility] LABCLIA [id number] [place], [place] [address]Kqchcucxsmd/100 WBC (Bld)43.2 %NormalTrinity Health System on above:Order Comment: Specimen Type: BLOOD SPECIMENOrdering Facility: [facility] Address:[address] [place], [place] [address]Performed By: #### 09227-4, 13986-8 ####[facility] LABCLIA [id number] [place], [place] [address]GKD (RBC) [Entitic mass]32.3 jyDutapq05.0-34.0[facility] on above:Order Comment: Specimen Type: BLOOD SPECIMENOrdering Facility: [facility] Address:[address] [place], [place] [address]Performed By: #### 18374-7, 38224-7 ####[facility] LABCLIA [id number] [place], [place] [address]CBWU (RBC) [Mass/Vol]32.1 g/dLNormal 30.5-36.0[facility] on above:Order Comment: Specimen Type: BLOOD SPECIMENOrdering Facility: [facility] Address:[address] [place], [place] [address]Performed By: #### 90177-5, 75612-1 ####[facility] LABCLIA [id number] [place], [place] [address]SVD (RBC) [Entitic vol]100.6 xGDnof95.0-100.0[facility] on above:Order Comment: Specimen Type: BLOOD SPECIMENOrdering Facility: [facility] Address:[address] [place], [place] [address]Performed By: #### 12444-9, 48523-0 ####[facility] LABCLIA [id number] [place] [address] Monocytes (Bld) [#/Vol]0.28 10*3/uLNormal<0.87[facility] on above:Order Comment: Specimen Type: BLOOD SPECIMENOrdering Facility: [facility] Address:[address] [place] [address] Performed By: #### 51114-9, 13532-4 ####[facility] LABCLIA [id number] [place], [place] [address]Nxtxbwpot/100 WBC (Bld)4.9 %NormalTrinity Health System on above:Order Comment: Specimen Type: BLOOD SPECIMENOrdering Facility: [facility] Address:[address] [place], [place] [address]Performed By: #### 29585-0, 24520-6 ####[facility] LABIA [id number] [place], [place] [address]Shqafezszhr (Bld) [#/Vol]2.90 10*3/uLNormal1.45-7.50 [facility] on above:Order Comment: Specimen Type: BLOOD SPECIMENOrdering Facility: [facility] Address:[address] [place], [place] [address]Performed By: #### 73869-5, 80703-9 ####[facility] LABIA [id number] [place] [address] Neutrophils/100 WBC (Bld)50.6 %NormalTrinity Health System on above: Order Comment: Specimen Type: BLOOD SPECIMENOrdering Facility: [facility] Address:[address] [place], [place] [address]Performed By: #### 71849- 0, 25891-5 ####[facility] LABIA [id number] [place], [place] [address]Bwfjhpvlk RBC (Bld) [#/Vol]10*3/uLNormal<0.01 [facility] on above:Order Comment: Specimen Type: BLOOD SPECIMENOrdering Facility: [facility] Address:[address] [place], [place] [address]Performed By: #### 54653-6, 84378-8 ####[facility] LABCLIA [id number] [place] [address] Nucleated RBC/100 WBC (Bld) [Ratio]0.0 /100 WBCNormalCTriHealth Comment on above:Order Comment: Specimen Type: BLOOD SPECIMENOrdering Facility: [facility] Address:[address] [place] [address] Performed By: #### 53236-9, 05896-5 ####[facility] LABCLIA [id number] [place], [place] [address]Jjstoqrf mean volume (Bld) [Entitic vol]9.2 fLNormal9.0-12.7CHenry County Hospital on above:Order Comment: Specimen Type: BLOOD SPECIMENOrdering Facility: [facility] Address:[address] [place], [place] [address]Performed By: #### 40234-5, 22949-7 ####[facility] LABCLIA [id number] [place], [place] [address]Tqdpnwexc (Bld) [#/Vol]165 10*3/uLNormal 150-400Ohio Valley HospitalComment on above:Order Comment: Specimen Type: BLOOD SPECIMENOrdering Facility: [facility] Address:[address] [place], [place] [address]Performed By: #### 53427-3, 42738-5 ####[facility] LABCLIA [id number] [place], [place] [address]TWX (Bld) [#/Vol]3.22 10*6/uLLow3.90-5.20[facility] on above:Order Comment: Specimen Type: BLOOD SPECIMENOrdering Facility: [facility] Address:[address] [place] [address] Performed By: #### 63780-3, 88070-8 ####[facility] LABCLIA [id number] [place], [place] [address]ZHV (Bld) [#/Vol]5.72 10*3/uLNormal3.70-11.00[facility] on above:Order Comment: Specimen Type: BLOOD SPECIMENOrdering Facility: [facility] Address:[address] [place], [place] [address]Performed By: #### 98462-4, 51314-4 ####[facility] LABCLIA [id number] [place], [place] [address]Cunkgpzhbuwmi metabolic 2000 panelon 05-17-3051Humgzgf [Mass/Vol]3.7 g/dLLow3.9-4.9CHenry County Hospital on above:Order Comment: Specimen Type: BLOOD SPECIMENOrdering Facility: [facility] Address:[address] [place], [place] [address]Performed By: #### 43451- 8 ####[facility] LABCLIA [id number] [place], [place] [address]BQJ [Catalytic activity/Vol]81 U/VCynrmk08-887ItfnnkxicTrinity Health System on above:Order Comment: Specimen Type: BLOOD SPECIMENOrdering Facility: [facility] Address:[address] [place], [place] [address]Performed By: #### 18579-4 ####[facility] LABCLIA [id number] [place], [place] [address]ZMO [Catalytic activity/Vol]12 U/LNormal7-38[facility] on above:Order Comment: Specimen Type: BLOOD SPECIMENOrdering Facility: [facility] Address:[address] [place], [place] [address]Performed By: #### 50852- 8 ####[facility] LABCLIA [id number] [place], [place] [address]Pranu gap [Moles/Vol]8 mmol/LNormal8-15[facility] on above:Order Comment: Specimen Type: BLOOD SPECIMENOrdering Facility: [facility] Address:[address] [place], [place] [address]Performed By: #### 86359-2 ####[facility] LABCLIA [id number] [place], [place] [address]INC [Catalytic activity/Vol]21 U/SQhplql66-76JidydfqskTrinity Health System on above:Order Comment: Specimen Type: BLOOD SPECIMENOrdering Facility: [facility] Address:[address] [place], [place] [address]Performed By: #### 03539-0 ####[facility] LABCLIA [id number] [place] [address] Bilirubin [Mass/Vol]0.4 mg/dLNormal0.2-1.3CHenry County Hospital on above:Order Comment: Specimen Type: BLOOD SPECIMENOrdering Facility: [facility] Address:[address] [place], [place] [address]Performed By: #### 26343-2 ####[facility] LABCLIA [id number] [place], [place] [address]Wzufcuf [Mass/Vol]10.0 mg/dLNormal8.5-10.2CHenry County Hospital on above:Order Comment: Specimen Type: BLOOD SPECIMENOrdering Facility: [facility] Address:[address] [place], [place] [address]Performed By: #### 19022-9 ####[facility] LABCLIA [id number] [place], [place] [address]Xrcccwxe [Moles/Vol]106 mmol/XTythjg38-392QfxklvktrTrinity Health System on above: Order Comment: Specimen Type: BLOOD SPECIMENOrdering Facility: [facility] Address:[address] [place], [place] [address]Performed By: #### 81148- 8 ####[facility] LABCLIA [id number] [place], [place] [address]KY7 [Moles/Vol]23 mmol/CJontyq20-39IwcxuqxscTrinity Health System on above:Order Comment: Specimen Type: BLOOD SPECIMENOrdering Facility: [facility] Address:[address] [place], [place] [address]Performed By: #### 77706-6 ####[facility] LABCLIA [id number] [place], [place] [address]Qvephywxxb [Mass/Vol]1.16 mg/dL High0.58-0.96[facility] on above:Order Comment: Specimen Type: BLOOD SPECIMENOrdering Facility: [facility] Address:[address] [place], [place] [address]Performed By: #### 15955-5 ####[facility] LABCLIA [id number] [place] [address] Creatinine and Glomerular filtration rate.predicted panel (S/P/Bld)50 mL/min/1.73m???Low>=60[facility] on above:Order Comment: Specimen Type: BLOOD SPECIMENOrdering Facility: [facility] Address:[address] [place], [place] [address]Result Comment: Estimated Glomerular Filtration Rate (eGFR) is calculated using the 2020 CKD-EPI creatinine equation. This equation utilizes serum creatinine, sex, and age as parameters. The creatinine assay has traceable calibration to isotope dilution-mass spectrometry. Refer to KDIGO guidelines for clinical interpretation. In patients with unstable renal function, e.g. those with acute kidney injury, the eGFR may not accurately reflect actual GFR.Performed By: #### 48000-0 ####[facility] LABIA [id number] [place] [address] Glucose [Mass/Vol]98 mg/sAFbfzwe09-75PwqtoxhbfTrinity Health System on above: Order Comment: Specimen Type: BLOOD SPECIMENOrdering Facility: [facility] Address:[address] [place], [place] [address]Result Comment: The [place] [employer] (ADA) provides guidance for cutoff values for fast ing glucose and random glucose. The ADA defines fasting as no caloric intake for at least 8 hours. Fasting plasma glucose results between 100 to 125 mg/dL indicate increased risk for diabetes (prediabetes).Fasting plasma glucose results greater than or equal to 126 mg/dL meet the criteria for diagnosis of diabetes. In the absence of unequivocal hyperglycemia, results should be confirmed by repeattesting. In a patient with classic symptoms of hyperglycemia or hyperglycemic crisis, random plasmaglucose results greater than or equal to 200 mg/dL meet the criteria for diagnosis of diabetes.Reference: Standards of Medical Care in Diabetes 2016, [place] [employer]. Diabetes Care. 2016.39(Suppl 1).Performed By: #### 13553-8 ####[facility] LABCLIA [id number] [place], [place] [address]Wzrnlezrf [Moles/Vol]4.9 mmol/LNormal3.7-5.1CHenry County Hospital on above: Order Comment: Specimen Type: BLOOD SPECIMENOrdering Facility: [facility] Address:[address] [place], [place] [address]Performed By: #### 06142- 8 ####[facility] LABCLIA [id number] [place], [place] [address]Wahcjpx [Mass/Vol]7.1 g/dLNormal6.3-8.0[facility] on above:Order Comment: Specimen Type: BLOOD SPECIMENOrdering Facility: [facility] Address:[address] [place], [place] [address]Performed By: #### 30307-0 ####[facility] LABCLIA [id number] [place], [place] [address]Gojfqb [Moles/Vol]137 mmol/L Tchoxk663-381EjqpmsmkcTrinity Health System on above:Order Comment: Specimen Type: BLOOD SPECIMENOrdering Facility: [facility] Address:[address] [place], [place] [address]Performed By: #### 26708-0 ####[facility] LABCLIA [id number] [place] [address] Urea nitrogen [Mass/Vol]36 mg/dLHigh7-21[facility] on above:Order Comment: Specimen Type: BLOOD SPECIMENOrdering Facility: [facility] Address:[address] [place], [place] [address]Performed By: #### 02874-8 ####[facility] LABCLIA [id number] [place], [place] [address]DGS SerPl-aCncon 29-58-8262Nnrqjlhzomhcds (EPO) Qn 66.5 mIU/mLHigh2.6-18.5ClevelAvita Health System [facility] on above:Order Comment: Specimen Type: BLOOD SPECIMENOrdering Facility: [facility] Address:[address] [place], [place] [address]Performed By: #### 14211-3 ####[facility] LABCLIA [id number] [address] STATES OF AMERICAFerritin SerPl-mCncon 2024 Ferritin [Mass/Vol]105.0 ng/fENecupq15.7-205.1ClevelAvita Health System [facility] on above:Order Comment: Specimen Type: BLOOD SPECIMENOrdering Facility: [facility] Address:[address] [place] [address] Performed By: #### 17720-5, 2131-9, 2284-8, 2276-4 ####[facility] LABCLIA [id number] [place] [address] [place] AMERICAFolate SerPl-mCncon 12-52-5281Cryzhq [Mass/Vol]8.1 ng/mLNormal >4.7ClevelAvita Health System [facility] on above:Order Comment: Specimen Type: BLOOD SPECIMENOrdering Facility: [facility] Address:[address] [place], [place] [address]Performed By: #### 78501-9, 2-9, 2284-8, 2276-4 ####[facility] LABCLIA [id number] [place] [address] [place] OF AMERICAIron and Iron binding capacity panelon 32-10-9998Jlpz [Mass/Vol]71 ug/dCCpvwlf21-101MyvculeefOhio Valley Hospital Comment on above:Order Comment: Specimen Type: BLOOD SPECIMENOrdering Facility: [facility] Address:[address] [place] [address] Performed By: #### 27459-0, 2131-9, 2283-8, 2275-4 ####[facility] LABCLIA [id number] [address] STATES OF AMERICAIron binding capacity [Mass/Vol]329 ug/nIWeezid945-948AirrhxchiOhio Valley HospitalComment on above:Order Comment: Specimen Type: BLOOD SPECIMENOrdering Facility: [facility] Address:[address] [place], [place] [address]Performed By: #### 01861-2, 2131-9, 2283-8, 2275-4 ####[facility] LABCLIA [id number] [address] STATES OF AMERICAIron/TIBC [Molar ratio]21.6 % Gvlndo05.0-57.0Ohio Valley HospitalComment on above:Order Comment: Specimen Type: BLOOD SPECIMENOrdering Facility: [facility] Address:[address] [place], [place] [address]Performed By: #### 62136-5, 9, 2283-8, 2275-4 ####[facility] LABCLIA [id number] [place] [address] [place] AMERICARetics #on 2024 Reticulocytes (Bld) [#/Vol]0.22000 10*3/uLNormal0.018-0.100[facility] on above:Order Comment: Specimen Type: BLOOD SPECIMENOrdering Facility: [facility] Address:[address] [place], [place] [address]Performed By: #### 86131-8, 26838-3 ####[facility] LABCLIA [id number] [place], [place] [address]Rchqlfghqpuil (Bld) [#/Vol]on 69-68-5378Szcgkumtlyriz/100 RBC (Bld)1.8 %Normal0.4-2.0[facility] on above:Order Comment: Specimen Type: BLOOD SPECIMENOrdering Facility: [facility] Address:[address] [place], [place] [address]Performed By: #### 37222-9, 76656-1 ####[facility] LABCLIA [id number] [place], [place] [address]Nap B12 SerPl-mCncon 31-24-8512Yvncxmjgy (Vitamin B12) [Mass/Vol]820 pg/lAXmjceu749-2605 [facility] on above:Order Comment: Specimen Type: BLOOD SPECIMENOrdering Facility: [facility] Address:[address] [place], [place] [address]Performed By: #### 44218-1, 2132-9, 2284-8, 2276-4 ####[facility] LABCLIA [id number] [address] Auto Differential panel (Bld)on 51-46-7726Ujmzxqrzq (Bld) [#/Vol]10*3/uLNormal<0.11CHenry County Hospital on above:Order Comment: Specimen Type: BLOOD SPECIMENOrdering Facility: [facility] Address:[address] [place], [place] [address]Performed By: #### 14514-5 ####[facility] LABCLIA [id number] [place], [place] [address]Qcuylhlkw/100 WBC (Bld)0.3 % NormalTrinity Health System on above:Order Comment: Specimen Type: BLOOD SPECIMENOrdering Facility: [facility] Address:[address] [place], [place] [address]Performed By: #### 04541-1 ####[facility] LABCLIA [id number] [place] [address] Differential cell count method Nom (Bld)AutoNormalClevelNovant Health Mint [facility] Comment on above:Order Comment: Specimen Type: BLOOD SPECIMENOrdering Facility: [facility] Address:[address] [place] [address] Performed By: #### 04867-0 ####[facility] LABIA [id number] [place], [place] [address]Ctltejnrsqp (Bld) [#/Vol]0.06 10*3/uLNormal<0.46[facility] on above:Order Comment: Specimen Type: BLOOD SPECIMENOrdering Facility: [facility] Address:[address] [place], [place] [address]Performed By: #### 86267-9 ####[facility] LABCLIA [id number] [place], [place] [address]Gwtncrpmtso/100 WBC (Bld)1.0 %NormalTrinity Health System on above:Order Comment: Specimen Type: BLOOD SPECIMENOrdering Facility: [facility] Address:[address] [place], [place] [address]Performed By: #### 21030-8 ####[facility] LABIA [id number] [place], [place] [address]Svwvivwnrwa distribution width (RBC) [Ratio]14.3 %Qyyofx34.5-15.0[facility] on above: Order Comment: Specimen Type: BLOOD SPECIMENOrdering Facility: [facility] Address:[address] [place], [place] [address]Performed By: #### 02730- 8 ####[facility] LABIA [id number] [place], [place] [address]Utslgonrqp (Bld) [Volume fraction]30.9 %Low36.0-46.0 [facility] on above:Order Comment: Specimen Type: BLOOD SPECIMENOrdering Facility: [facility] Address:[address] [place], [place] [address]Performed By: #### 13568-0 ####[facility] LABIA [id number] [place], [place] [address]Kbjllooejd (Bld) [Mass/Vol]9.7 g/dLLow11.5-15.5CHenry County Hospital on above:Order Comment: Specimen Type: BLOOD SPECIMENOrdering Facility: [facility] Address:[address] [place], [place] [address]Performed By: #### 48784- 8 ####[facility] LABCLIA [id number] [place], [place] [address]Uivopjes granulocytes (Bld) [#/Vol]10*3/uLNormal<0.10 [facility] on above:Order Comment: Specimen Type: BLOOD SPECIMENOrdering Facility: [facility] Address:[address] [place], [place] [address]Performed By: #### 14126-4 ####[facility] LABIA [id number] [place], [place] [address]Ehcrageo granulocytes/100 WBC (Bld)0.3 %NormalTrinity Health System on above: Order Comment: Specimen Type: BLOOD SPECIMENOrdering Facility: [facility] Address:[address] [place], [place] [address]Performed By: #### 76467- 8 ####[facility] LABCLIA [id number] [place], [place] [address]Kpjnbuisxee (Bld) [#/Vol]2.22 10*3/uLNormal1.00-4.00 [facility] on above:Order Comment: Specimen Type: BLOOD SPECIMENOrdering Facility: [facility] Address:[address] [place], [place] [address]Performed By: #### 98970-7 ####[facility] LABCLIA [id number] [place], [place] [address]Ibuifvktwaz/100 WBC (Bld)37.9 %NormalTrinity Health System on above:Order Comment: Specimen Type: BLOOD SPECIMENOrdering Facility: [facility] Address:[address] [place], [place] [address]Performed By: #### 16019-6 ####[facility] LABCLIA [id number] [place], [place] [address]XEN (RBC) [Entitic mass]32.0 pnEvjyzq21.0-34.0[facility] on above:Order Comment: Specimen Type: BLOOD SPECIMENOrdering Facility: [facility] Address:[address] [place], [place] [address]Performed By: #### 87111-2 ####[facility] LABIA [id number] [place], [place] [address]WEXN (RBC) [Mass/Vol]31.4 g/oDRwvfdf17.5-36.0[facility] on above: Order Comment: Specimen Type: BLOOD SPECIMENOrdering Facility: [facility] Address:[address] [place], [place] [address]Performed By: #### 13862- 8 ####[facility] LABIA [id number] [place], [place] [address]BMK (RBC) [Entitic vol]102.0 nSXiqf81.0-100.0[facility] on above:Order Comment: Specimen Type: BLOOD SPECIMENOrdering Facility: [facility] Address:[address] [place], [place] [address]Performed By: #### 01273-9 ####[facility] LABIA [id number] [place], [place] [address]Kyjkowvsg (Bld) [#/Vol]0.35 10*3/uLNormal<0.87[facility] on above:Order Comment: Specimen Type: BLOOD SPECIMENOrdering Facility: [facility] Address:[address] [place], [place] [address]Performed By: #### 72721- 8 ####[facility] LABCLIA [id number] [place], [place] [address]Ktlsjhion/100 WBC (Bld)6.0 %NormalTrinity Health System on above:Order Comment: Specimen Type: BLOOD SPECIMENOrdering Facility: [facility] Address:[address] [place], [place] [address]Performed By: #### 62312-8 ####[facility] LABCLIA [id number] [place], [place] [address]Zwrqwyyioqh (Bld) [#/Vol]3.18 10*3/uLNormal1.45-7.50[facility] on above:Order Comment: Specimen Type: BLOOD SPECIMENOrdering Facility: [facility] Address:[address] [place], [place] [address]Performed By: #### 75834-8 ####[facility] LABCLIA [id number] [place], [place] [address]Osizvnvzyzo/100 WBC (Bld)54.5 %NormalTrinity Health System on above:Order Comment: Specimen Type: BLOOD SPECIMENOrdering Facility: [facility] Address:[address] [place], [place] [address]Performed By: #### 41136-9 ####[facility] LABIA [id number] [place], [place] [address]Lbrqwwzih RBC (Bld) [#/Vol] 10*3/uLNormal<0.01[facility] on above:Order Comment: Specimen Type: BLOOD SPECIMENOrdering Facility: [facility] Address:[address] [place], [place] [address]Performed By: #### 05028-4 ####[facility] LABIA [id number] [place], [place] [address]Rbgdahmfp RBC/100 WBC (Bld) [Ratio]0.0 /100 WBCNormal [facility] on above:Order Comment: Specimen Type: BLOOD SPECIMENOrdering Facility: [facility] Address:[address] [place], [place] [address]Performed By: #### 23212-0 ####[facility] LABCLIA [id number] [place], [place] [address]Zpqfgyza mean volume (Bld) [Entitic vol]8.9 fLLow9.0-12.7CHenry County Hospital on above:Order Comment: Specimen Type: BLOOD SPECIMENOrdering Facility: [facility] Address:[address] [place], [place] [address]Performed By: #### 70180-3 ####[facility] LABCLIA [id number] [place], [place] [address]Urtwsnrax (Bld) [#/Vol]168 10*3/nZCoorwp154-975CtydrwusmTrinity Health System on above:Order Comment: Specimen Type: BLOOD SPECIMENOrdering Facility: [facility] Address:[address] [place], [place] [address]Performed By: #### 08901-8 ####[facility] LABCLIA [id number] [place], [place] [address]KJG (Bld) [#/Vol]3.03 10*6/uLLow3.90-5.20[facility] on above:Order Comment: Specimen Type: BLOOD SPECIMENOrdering Facility: [facility] Address:[address] [place], [place] [address]Performed By: #### 29265- 8 ####[facility] LABCLIA [id number] [place], [place] [address]OIZ (Bld) [#/Vol]5.85 10*3/uLNormal3.70-11.00[facility] on above:Order Comment: Specimen Type: BLOOD SPECIMENOrdering Facility: [facility] Address:[address] [place], [place] [address]Performed By: #### 54041-2 ####[facility] LABCLIA [id number] [place], [place] [address]JSOICXIxs 88-03-3190TDDZAJKIqbebcQgwhgtfoo Clinic ClevelandCNOVSPon 01-69-9197QWCLXWMkghkf Ohio Valley HospitalComprehensive metabolic 2000 panelon 46-07-7175Hfzdsnn [Mass/Vol]3.8 g/dLLow3.9-4.9CHenry [facility] Hospital on above:Order Comment: Specimen Type: BLOOD SPECIMENOrdering Facility: [facility] Address:[address] [place], [place] [address]Performed By: #### 22205- 8 ####[facility] LABCLIA [id number] [facility] [place], [place] [address]QZD [Catalytic activity/Vol]83 U/UXvsytj39-910KtqirrhxmTrinity Health System on above:Order Comment: Specimen Type: BLOOD SPECIMENOrdering Facility: [facility] Address:[address] [place], [place] [address]Performed By: #### 06653-7 ####[facility] LABCLIA [id number] [place], [place] [address]KUA [Catalytic activity/Vol]11 U/LNormal7-38[facility] on above:Order Comment: Specimen Type: BLOOD SPECIMENOrdering Facility: [facility] Address:[address] [place], [place] [id number] By: #### 91762- 8 ####[facility] LABCLIA [id number] [facility] [place], [place] [address]Jnoji gap [Moles/Vol]9 mmol/LNormal8-15[facility] on above:Order Comment: Specimen Type: BLOOD SPECIMENOrdering Facility: [facility] Address:[address] [place], [place] [address]Performed By: #### 44691-6 ####[facility] HOSPITALJOSE ROBERTO [facility]LY [facility] LABCLIA [id number] [place], [place] [address]PPR [Catalytic activity/Vol]20 U/MLphrnz12-76WwdaweaptTrinity Health System on above:Order Comment: Specimen Type: BLOOD SPECIMENOrdering Facility: [facility] Address:[address] [place], [place] [address]Performed By: #### 02217-2 ####[facility] LABCLIA [id number] [place] [address] Bilirubin [Mass/Vol]0.4 mg/dLNormal0.2-1.3CHenry [facility] Hospital on above:Order Comment: Specimen Type: BLOOD SPECIMENOrdering Facility: [facility] Address:[address] [place], [place] [address]Performed By: #### 31412-7 ####[facility] LABIA [id number] [place], [place] [address]Rbraflu [Mass/Vol]9.4 mg/dLNormal8.5-10.2CHenry County Hospital on above:Order Comment: Specimen Type: BLOOD SPECIMENOrdering Facility: [facility] Address:[address] [place], [place] [address]Performed By: #### 50954-0 ####[facility] LABCLIA [id number] [place], [place] [address]Ogxwdmtq [Moles/Vol]111 mmol/JXnwh55-986ZjkpzobmhTrinity Health System on above:Order Comment: Specimen Type: BLOOD SPECIMENOrdering Facility: [facility] Address:[address] [place], [place] [address]Performed By: #### 07696- 8 ####[facility] LABCLIA [id number] [facility] [place], [place] [address]YP5 [Moles/Vol]22 mmol/USskahx02-74QgkkardcpTrinity Health System on above:Order Comment: Specimen Type: BLOOD SPECIMENOrdering Facility: [facility] Address:[address] [place] [address]Haorrgcrt By: #### 90714-2 ####[facility] LABCLIA [id number] [place], [place] [address]Zrgcsjbsfs [Mass/Vol]1.30 mg/dL High0.58-0.96[facility] on above:Order Comment: Specimen Type: BLOOD SPECIMENOrdering Facility: [facility] Address:[address] [place], [place] [address]Performed By: #### 25926-7 ####[facility] LABCLIA [id number] [place] [address] Creatinine and Glomerular filtration rate.predicted panel (S/P/Bld)44 mL/min/1.73m???Low>=60[facility] on above:Order Comment: Specimen Type: BLOOD SPECIMENOrdering Facility: [facility] Address:[address] [place] [address]Tyoygf Comment: Estimated Glomerular Filtration Rate (eGFR) is calculated using the 2020 CKD-EPI creatinine equation. This equation utilizes serum creatinine, sex, and age as parameters. The creatinine assay has traceable calibration to isotope dilution-mass spectrometry. Refer to KDIGO guidelines for clinical interpretation. In patients with unstable renal function, e.g. those with acute kidney injury, the eGFR may not accurately reflect actual GFR.Performed By: #### 34326-6 ####[facility] LABCLIA [id number] [place] [address] Glucose [Mass/Vol]113 mg/sFHpwf68-46FwkrokbnsTrinity Health System on above: Order Comment: Specimen Type: BLOOD SPECIMENOrdering Facility: [facility] Address:[address] [place] [address]Hqcgpj Comment: The [place] Diabetes Association (ADA) provides guidance for cutoff values for fast ing glucose and random glucose. The ADA defines fasting as no caloric intake for at least 8 hours. Fasting plasma glucose results between 100 to 125 mg/dL indicate increased risk for diabetes (prediabetes).Fasting plasma glucose results greater than or equal to 126 mg/dL meet the criteria for diagnosis of diabetes. In the absence of unequivocal hyperglycemia, results should be confirmed by repeattesting. In a patient with classic symptoms of hyperglycemia or hyperglycemic crisis, random plasmaglucose results greater than or equal to 200 mg/dL meet the criteria for diagnosis of diabetes.Reference: Standards of Medical Care in Diabetes 2016, [place] [employer] Association. Diabetes Care. 2016.39(Suppl 1).Performed By: #### 17237-6 ####[facility] LABCLIA [id number] [place], [place] [address]Vjkbkmwob [Moles/Vol]5.1 mmol/LNormal3.7-5.1CHenry County Hospital on above: Order Comment: Specimen Type: BLOOD SPECIMENOrdering Facility: [facility] Address:[address] [place], [place] [address]Performed By: #### 60570- 8 ####[facility] LABIA [id number] [place], [place] [address]Qnzltqy [Mass/Vol]7.4 g/dLNormal6.3-8.0[facility] on above:Order Comment: Specimen Type: BLOOD SPECIMENOrdering Facility: [facility] Address:[address] [place], [place] [address]Performed By: #### 95830-0 ####[facility] LABIA [id number] [place], [place] [address]Wnznlv [Moles/Vol]142 mmol/L Eekvgv882-617CbunxynpeTrinity Health System on above:Order Comment: Specimen Type: BLOOD SPECIMENOrdering Facility: [facility] Address:[address] [place], [place] [address]Performed By: #### 81963-4 ####[facility] LABIA [id number] [place] [address] Urea nitrogen [Mass/Vol]40 mg/dLHigh7-21[facility] on above:Order Comment: Specimen Type: BLOOD SPECIMENOrdering Facility: [facility] Address:[address] [place], [place] [address]Performed By: #### 37465-0 ####[facility] LABCLIA [id number] [place], [place] [address]Dayvsafu SerPl-mCncon 85-53-6445Rmxtgaqp [Mass/Vol] 142.0 ng/fSFshxuc71.7-205.1CHenry County Hospital on above:Order Comment: Specimen Type: BLOOD SPECIMENOrdering Facility: [facility] Address:[address] [place], [place] [address]Performed By: #### 2276- 4, 13272-5, 2132-03, 2284-02 ####[facility] LABCLIA [id number] [place] [address] [place] AMERICAFolate SerPl-mCncon 81-00-1786Kwvhfh [Mass/Vol]4.9 ng/mLNormal>4.7CHenry County Hospital on above:Order Comment: Specimen Type: BLOOD SPECIMENOrdering Facility: [facility] Address:[address] [place], [place] [address]Performed By: #### 2276-4, 07863-0, 2132-03, 2284-02 ####[facility] LABCLIA [id number] [place] [address] [place] AMERICAIron and Iron binding capacity panelon 19-10-5021Vvej [Mass/Vol]44 ug/eGTsvlyv93-615ZwcbbppgqTrinity Health System on above:Order Comment: Specimen Type: BLOOD SPECIMENOrdering Facility: [facility] Address:[address] [place], [place] [address]Performed By: #### 2276- 4, 81642-2, 2132-03, 2284-02 ####[facility] LABCLIA [id number] [place] [address] [place] AMERICAIron binding capacity [Mass/Vol]362 ug/tNObrszc312-518SvdkqwueeOhio Valley Hospital Comment on above:Order Comment: Specimen Type: BLOOD SPECIMENOrdering Facility: [facility] Address:[address] [place] [address] Performed By: #### 2276-4, 21008-2, 9, 2284-02 ####[facility] LABCLIA [id number] [place] [address] [place] [facility] HOSPITALIron/TIBC [Molar ratio]12.2 %Low15.0-57.0[facility] on above:Order Comment: Specimen Type: BLOOD SPECIMENOrdering Facility: [facility] Address:[address] [place], [place] [address]Performed By: #### 2276-4, 43785-1, 2132-03, 2284-02 ####[facility] LABCLIA [id number] [address] STREETVit B12 SerPl-[facility] 37-42-9773Lucmjyvmc (Vitamin B12) [Mass/Vol]591 pg/qGDgskkl102-0449Piqayuvjj Clinic ClevelandComment on above: Order Comment: Specimen Type: BLOOD SPECIMENOrdering Facility: [facility] Address:[address] [place], [place] [address]Performed By: #### 2276- 4, 09603-2, 2132-03, 2284-02 ####[facility] LABCLIA [id number] [address]ETCB W Auto Differential panel (Bld)on 70-11-4754Nqghiqmfl (Bld) [#/Vol]10*3/uLNormal <0.11CHenry County Hospital on above:Order Comment: Specimen Type: BLOOD SPECIMENOrdering Facility: [facility] Address:[address] [place], [place] [address]Performed By: #### 06066-7 ####[facility] LABCLIA [id number] [place] [address] Basophils/100 WBC (Bld)0.4 %NormalTrinity Health System on above: Order Comment: Specimen Type: BLOOD SPECIMENOrdering Facility: [facility] Address:[address] [place], [place] [address]Performed By: #### 05741- 8 ####[facility] LABIA [id number] [place], [place] [address]Vhfjktkshuxq cell count method Nom (Bld)AutoNormal [facility] on above:Order Comment: Specimen Type: BLOOD SPECIMENOrdering Facility: [facility] Address:[address] [place], [place] [address]Performed By: #### 89153-3 ####[facility] LABIA [id number] [place], [place] [address]Tbvutlbnffl (Bld) [#/Vol]0.04 10*3/uLNormal<0.46[facility] on above: Order Comment: Specimen Type: BLOOD SPECIMENOrdering Facility: [facility] Address:[address] [place], [place] [address]Performed By: #### 91210- 8 ####[facility] LABIA [id number] [place], [place] [address]Ylpooibmalw/100 WBC (Bld)0.7 %NormalTrinity Health System on above:Order Comment: Specimen Type: BLOOD SPECIMENOrdering Facility: [facility] Address:[address] [place], [place] [address]Performed By: #### 64137-7 ####[facility] LABIA [id number] [place], [place] [address]Owazrjtgvcu distribution width (RBC) [Ratio]14.3 %Bxvuva92.5-15.0[facility] on above: Order Comment: Specimen Type: BLOOD SPECIMENOrdering Facility: [facility] Address:[address] [place], [place] [address]Performed By: #### 05419- 8 ####[facility] LABCLIA [id number] [place], [place] [address]Qbycsazamm (Bld) [Volume fraction]35.0 %Low36.0-46.0 [facility] on above:Order Comment: Specimen Type: BLOOD SPECIMENOrdering Facility: [facility] Address:[address] [place], [place] [address]Performed By: #### 12222-0 ####[facility] LABCLIA [id number] [place], [place] [address]Hwdxuodmia (Bld) [Mass/Vol]11.1 g/dLLow11.5-15.5CHenry County Hospital on above:Order Comment: Specimen Type: BLOOD SPECIMENOrdering Facility: [facility] Address:[address] [place], [place] [address]Performed By: #### 77903- 8 ####[facility] LABCLIA [id number] [place], [place] [address]Ofvxesms granulocytes (Bld) [#/Vol]10*3/uLNormal<0.10 [facility] on above:Order Comment: Specimen Type: BLOOD SPECIMENOrdering Facility: [facility] Address:[address] [place], [place] [address]Performed By: #### 57137-3 ####[facility] LABCLIA [id number] [place], [place] [address]Npgieqyx granulocytes/100 WBC (Bld)0.2 %NormalTrinity Health System on above: Order Comment: Specimen Type: BLOOD SPECIMENOrdering Facility: [facility] Address:[address] [place], [place] [address]Performed By: #### 20904- 8 ####[facility] LABCLIA [id number] [place], [place] [address]Ragtantwqqh (Bld) [#/Vol]1.92 10*3/uLNormal1.00-4.00 [facility] on above:Order Comment: Specimen Type: BLOOD SPECIMENOrdering Facility: [facility] Address:[address] [place], [place] [address]Performed By: #### 72271-9 ####[facility] LABCLIA [id number] [place], [place] [address]Vgdnvtcklpx/100 WBC (Bld)36.0 %NormalTrinity Health System on above:Order Comment: Specimen Type: BLOOD SPECIMENOrdering Facility: [facility] Address:[address] [place], [place] [address]Performed By: #### 42228-0 ####[facility] LABCLIA [id number] [place], [place] [address]ENG (RBC) [Entitic mass]31.6 teLiuavt17.0-34.0[facility] on above:Order Comment: Specimen Type: BLOOD SPECIMENOrdering Facility: [facility] Address:[address] [place], [place] [address]Performed By: #### 96797-6 ####[facility] LABCLIA [id number] [place], [place] [address]FAGT (RBC) [Mass/Vol]31.7 g/oCArzncf33.5-36.0[facility] on above: Order Comment: Specimen Type: BLOOD SPECIMENOrdering Facility: [facility] Address:[address] [place], [place] [address]Performed By: #### 16793- 8 ####[facility] LABCLIA [id number] [place], [place] [address]TMD (RBC) [Entitic vol]99.7 cSKlwbif94.0-100.0[facility] on above:Order Comment: Specimen Type: BLOOD SPECIMENOrdering Facility: [facility] Address:[address] [place], [place] [address]Performed By: #### 89086-1 ####[facility] LABCLIA [id number] [place], [place] [address]Uvasfprga (Bld) [#/Vol]0.20 10*3/uLNormal<0.87[facility] on above:Order Comment: Specimen Type: BLOOD SPECIMENOrdering Facility: [facility] Address:[address] [place], [place] [address]Performed By: #### 33455- 8 ####[facility] LABCLIA [id number] [place], [place] [address]Pitjwynzu/100 WBC (Bld)3.7 %NormalTrinity Health System on above:Order Comment: Specimen Type: BLOOD SPECIMENOrdering Facility: [facility] Address:[address] [place], [place] [address]Performed By: #### 73144-8 ####[facility] LABCLIA [id number] [place], [place] [address]Iefueotzfuz (Bld) [#/Vol]3.15 10*3/uLNormal1.45-7.50[facility] on above:Order Comment: Specimen Type: BLOOD SPECIMENOrdering Facility: [facility] Address:[address] [place], [place] [address]Performed By: #### 52657-7 ####[facility] LABCLIA [id number] [place], [place] [address]Aalealcxsoa/100 WBC (Bld)59.0 %NormalTrinity Health System on above:Order Comment: Specimen Type: BLOOD SPECIMENOrdering Facility: [facility] Address:[address] [place], [place] [address]Performed By: #### 91963-4 ####[facility] LABCLIA [id number] [place], [place] [address]Sotudrmkh RBC (Bld) [#/Vol] 10*3/uLNormal<0.01[facility] on above:Order Comment: Specimen Type: BLOOD SPECIMENOrdering Facility: [facility] Address:[address] [place], [place] [address]Performed By: #### 25643-0 ####[facility] LABCLIA [id number] [place], [place] [address]Brpenrwpz RBC/100 WBC (Bld) [Ratio]0.0 /100 WBCNormal [facility] on above:Order Comment: Specimen Type: BLOOD SPECIMENOrdering Facility: [facility] Address:[address] [place], [place] [address]Performed By: #### 95064-4 ####[facility] LABCLIA [id number] [place], [place] [address]Teueposb mean volume (Bld) [Entitic vol]9.0 fLNormal9.0-12.7CHenry County Hospital on above:Order Comment: Specimen Type: BLOOD SPECIMENOrdering Facility: [facility] Address:[address] [place] [address] Performed By: #### 65714-6 ####[facility] LABCLIA [id number] [place], [place] [address]Kwnhtwoip (Bld) [#/Vol]202 10*3/ySHbexcg325-457OkfwoasbrTrinity Health System on above:Order Comment: Specimen Type: BLOOD SPECIMENOrdering Facility: [facility] Address:[address] [place], [place] [address]Performed By: #### 11352-2 ####[facility] LABCLIA [id number] [place], [place] [address]VBN (Bld) [#/Vol]3.51 10*6/uLLow3.90-5.20[facility] on above:Order Comment: Specimen Type: BLOOD SPECIMENOrdering Facility: [facility] Address:[address] [place], [place] [address]Performed By: #### 73376-6 ####[facility] LABCLIA [id number] [place], [place] [address]NBR (Bld) [#/Vol]5.34 10*3/uL Normal3.70-11.00[facility] on above:Order Comment: Specimen Type: BLOOD SPECIMENOrdering Facility: [facility] Address:[address] [place], [place] [address]Performed By: #### 74294-4 ####[facility] LABCLIA [id number] [place], [place] [address]RRZHGPNhe 72-59-7063PRHLHLYOjzjkjKhidtdkra Clinic ClevelandCNOVSPon 07-10-5156IIVRXSMefvwtLxcvvtuza Clinic ClevelandComprehensive metabolic 2000 panelon 84-39-4875Yacfxrq [Mass/Vol]3.9 g/dLNormal3.9-4.9 [facility] on above:Order Comment: Specimen Type: BLOOD SPECIMENOrdering Facility: [facility] Address:[address] [place], [place] [address]Performed By: #### 74027-4 ####[facility] LABIA [id number] [place], [place] [address]QVO [Catalytic activity/Vol]86 U/HSgvotg68-681ZmxubttsjTrinity Health System on above:Order Comment: Specimen Type: BLOOD SPECIMENOrdering Facility: [facility] Address:[address] [place], [place] [address]Performed By: #### 44543- 8 ####[facility] LABCLIA [id number] [place], [place] [address]SNY [Catalytic activity/Vol]14 U/LNormal7-38[facility] on above:Order Comment: Specimen Type: BLOOD SPECIMENOrdering Facility: [facility] Address:[address] [place], [place] [address]Performed By: #### 07735-3 ####[facility] LABCLIA [id number] [facility] [place] [address]Rdqux gap [Moles/Vol]9 mmol/LNormal8-15[facility] on above:Order Comment: Specimen Type: BLOOD SPECIMENOrdering Facility: [facility] Address:[address] [place], [place] [address]Performed By: #### 81612- 8 ####[facility] LABCLIA [id number] [facility] [place], [place] [address]HFG [Catalytic activity/Vol]24 U/IIjhsmd60-74UxkebtdnkTrinity Health System on above:Order Comment: Specimen Type: BLOOD SPECIMENOrdering Facility: [facility] Address:[address] [place], [place] [address]Performed By: #### 39737-2 ####[facility] LABCLIA [id number] [place], [place] [address]Byhvnttuh [Mass/Vol]0.5 mg/dLNormal0.2-1.3CHenry [facility] on above:Order Comment: Specimen Type: BLOOD SPECIMENOrdering Facility: [facility] Address:[address] [place], [place] [address]Performed By: #### 46396- 8 ####[facility] LABCLIA [id number] [facility] [place], [place] [address]Scoxitp [Mass/Vol]9.7 mg/dLNormal8.5-10.2CHenry [facility] on above:Order Comment: Specimen Type: BLOOD SPECIMENOrdering Facility: [facility] Address:[address] [place], [place] [address]Performed By: #### 32943-1 ####[facility] LABCLIA [id number] [place], [place] [address]Hvpitbik [Moles/Vol]106 mmol/L Ckgalr89-929YobhhldxzTrinity Health System on above:Order Comment: Specimen Type: BLOOD SPECIMENOrdering Facility: [facility] Address:[address] [place], [place] [address]Performed By: #### 66236-4 ####[facility] LABCLIA [id number] [place] [address] CO2 [Moles/Vol]23 mmol/UOdtscj54-42ZhdkedimoTrinity Health System on above: Order Comment: Specimen Type: BLOOD SPECIMENOrdering Facility: [facility] Address:[address] [place], [place] [address]Performed By: #### 50666- 8 ####[facility] LABCLIA [id number] [place], [place] [address]Ogjdtcatac [Mass/Vol]1.27 mg/dLHigh0.58-0.96[facility] on above:Order Comment: Specimen Type: BLOOD SPECIMENOrdering Facility: [facility] Address:[address] [place], [place] [address]Performed By: #### 09799-9 ####[facility] LABIA [id number] [place], [place] [address]Ofiasjtlwk and Glomerular filtration rate.predicted panel (S/P/Bld)45 mL/min/1.73m???Low>=60 [facility] on above:Order Comment: Specimen Type: BLOOD SPECIMENOrdering Facility: [facility] Address:[address] [place], [place] [address]Result Comment: Estimated Glomerular Filtration Rate (eGFR) is calculated using the 2020 CKD-EPI creatinine equation. This equation utilizes serum creatinine, sex, and age as parameters. The creatinine assay has traceable calibration to isotope dilution-mass spectrometry. Refer to KDIGO guidelines for clinical interpretation. In patients with unstable renal function, e.g. those with acute kidney injury, the eGFR may not accurately reflect actual GFR.Performed By: #### 71280-5 ####[facility] LABCLIA [id number] [place], [place] [address]Tjwbmph [Mass/Vol]107 mg/mLPoeq96-34WrsvedfueTrinity Health System on above:Order Comment: Specimen Type: BLOOD SPECIMENOrdering Facility: [facility] Address:[address] [place], [place] [address]Result Comment: The [place] Diabetes Association (ADA) provides guidance for cutoff values for fast ing glucose and random glucose. The ADA defines fasting as no caloric intake for at least 8 hours. Fasting plasma glucose results between 100 to 125 mg/dL indicate increased risk for diabetes (prediabetes).Fasting plasma glucose results greater than or equal to 126 mg/dL meet the criteria for diagnosis of diabetes. In the absence of unequivocal hyperglycemia, results should be confirmed by repeattesting. In a patient with classic symptoms of hyperglycemia or hyperglycemic crisis, random plasmaglucose results greater than or equal to 200 mg/dL meet the criteria for diagnosis of diabetes.Reference: Standards of Medical Care in Diabetes 2016, [place] [employer]. Diabetes Care. 2016.39(Suppl 1).Performed By: #### 88206-4 ####[facility] LABCLIA [id number] [place], [place] [address]Tprrgauqi [Moles/Vol]5.0 mmol/LNormal3.7-5.1CHenry County [facility] on above: Order Comment: Specimen Type: BLOOD SPECIMENOrdering Facility: [facility] Address:[address] [place], [place] [address]Performed By: #### 94128- 8 ####[facility] LABCLIA [id number] [place], [place] [address]Yakblsy [Mass/Vol]7.7 g/dLNormal6.3-8.0[facility] on above:Order Comment: Specimen Type: BLOOD SPECIMENOrdering Facility: [facility] Address:[address] [place], [place] [address]Performed By: #### 38835-7 ####[facility] LABCLIA [id number] [place], [place] [address]Cuqnhc [Moles/Vol]138 mmol/L Hrdpjt572-146HhskjxsskTrinity Health System on above:Order Comment: Specimen Type: BLOOD SPECIMENOrdering Facility: [facility] Address:[address] [place] [address]Diselcdrg By: #### 15028-9 ####[facility]ITALJO[facility]ERT[facility] LABCLIA [id number] [place] [address] Urea nitrogen [Mass/Vol]31 mg/dLHigh7-21[facility] on above:Order Comment: Specimen Type: BLOOD SPECIMENOrdering Facility: [facility] Address:[address] [place], [place] [address]Performed By: #### 79579-1 ####[facility]ITALJO[facility] LABCLIA [id number] [place], [place] [address]Tjneufhh SerPl-mCncon 21-24-0103Eqzwfdna [Mass/Vol] 122.0 ng/mNYghfdb30.7-205.1CHenry County [facility] on above:Order Comment: Specimen Type: BLOOD SPECIMENOrdering Facility: [facility] Address:[address] [place], [place] [address]Performed By: #### 29850- 8, 9, 6-4, 2283-8 ####[facility] LABCLIA [id number] [place] [id number] [place] AMERICAFolate SerPl-mCncon 03-93-1441Vuwemu [Mass/Vol]6.6 ng/mLNormal>4.7CHenry County [facility] on above:Order Comment: Specimen Type: BLOOD SPECIMENOrdering Facility: [facility] Address:[address] [place], [place] [address]Performed By: #### 74587-4, 9, 6-4, 228-8 ####[facility] LABCLIA [id number] [place] [id number] [place] AMERICAIron and Iron binding capacity panelon 34-72-0713Emld [Mass/Vol]70 ug/cQYoutuw56-757RlcmjahsvTrinity Health System on above:Order Comment: Specimen Type: BLOOD SPECIMENOrdering Facility: [facility] Address:[address] [place] [address]Nsxfqsalt By: #### 99892- 8, 2132-03, 2275-10, 2284-02 ####[facility] LABCLIA [id number] [place] [address] [place] AMERICAIron binding capacity [Mass/Vol]351 ug/vCEzakaq135-968DcuegdkquOhio Valley Hospital Comment on above:Order Comment: Specimen Type: BLOOD SPECIMENOrdering Facility: [facility] Address:[address] [place], [place] [address] Performed By: #### 45834-3, 2132-03, 2275-10, 2284-02 ####[facility] LABCLIA [id number] [address] [address] [place] AMERICAIron/TIBC [Molar ratio]19.9 %Wvdqmu94.0-57.0[facility] HospitalComment on above:Order Comment: Specimen Type: BLOOD SPECIMENOrdering Facility: [facility] Address:[address] [place], [place] [id number] By: #### 07511-5, 2132-03, 2275-10, 2284-02 ####[facility] LABCLIA [id number] [address] [address] [place] OF AMERICAVit B12 SerPl-mCncon [id number] (Vitamin B12) [Mass/Vol]647 pg/lAMgbndo441-9759AhwmycjqrHenry County Hospital on above: Order Comment: Specimen Type: BLOOD SPECIMENOrdering Facility: [facility] Address:[address] [place] [address]Btsuzppla By: #### 63600- 8, 2132-03, 2275-10, 2284-02 ####[facility] LABCLIA [id number] [address] [place] [address] [place] OF AMERICAUS Thyroid glandon 31-67-5235[address] [address] Ultrasound Report Signed Patient: ANDREI FISH MR#: [id number] : 1950 Acct:[id number] Age/Sex: 73 / F ADM Date: 09/17/24 Loc: US Attending Dr: Mar Mayo M.D. Ordering Physician: Mar Mayo M.D. Date of Service: 09/17/24 Procedure(s): US thyroid Accession Number(s): [id number] cc: Stephanie Dumont STRAP CUTTING MACHINE OPERATOR; Mar Mayo M.D. [place] [address] Patient Name: ANDREI FISH MRN: [id number] date: 1950 Sex: F Assigned Patient Location: US Current Patient Location: US Accession/Order Number: [id number] Exam Date: 09/17/2024 18:55 Report Date: 09/17/2024 [...] Valentin Peralta M.D.09/17/2024 7:07 PM Dictation Location: [place] [address] Electronically authenticated by: [id number] Y Date: 09/17/2024 19:07 Dictated By: Valentin Peralta D.O. Signed By: 09/17/241909 DD/ 06 TD/TT: Marketing Services Rep:[facility]YRONE[facility]iology, Radiologist, - 09/17/2024 [place] [address] Ultrasound Report Signed Patient: ANDREI FISH MR#: [id number] : 1950 Acct:[id number] Age/Sex: 73 / F ADM Date: 09/17/24 Loc: US Attending Dr: Mar Mayo M.D. Ordering Physician: Mar Mayo M.D. Date of Service: 09/17/24 Procedure(s): US thyroid Accession Number(s): [id number] cc: Stephanie Dumont STRAP CUTTING MACHINE OPERATOR; Mar Mayo M.D. [address] [address] Patient Name: ANDREI FISH MRN: [id number] date: 1950 Sex: F Assigned Patient Location: US Current Patient Location: US Accession/Order Number: [id number] Exam Date: 09/17/2024 18:55 Report Date: 09/17/2024 [...] Valentin Peralta M.D.09/17/2024 7:07 PM Dictation Location: [place] [address] Electronically authenticated by: [id number] Y Date: 09/17/2024 19:07 Dictated By: Valentin Peralta D.O. Signed By: 09/17/241909 DD/ 06 TD/TT: Marketing Services Rep: ISRA[place] HealthcareRadiology Study observation (narrative)DANNIELLEKarissa HealthcareUS Thyroid glandOrdered By: Radiologist Radiology on 69-43-2462[facility] Work Phone: cbc W Auto Differential panel (Bld)on 08-30-2024 Basophils (Bld) [#/Vol]10*3/uLNormal<0.11CHenry County Hospital on above:Order Comment: Specimen Type: BLOOD SPECIMENOrdering Facility: [facility] Address:[address] [place], [place] [address]Performed By: #### 79281-7 ####[facility] LABIA [id number] [place], [place] [address]Yacfaifmv/100 WBC (Bld)0.4 %NormalTrinity Health System on above:Order Comment: Specimen Type: BLOOD SPECIMENOrdering Facility: [facility] Address:[address] [place], [place] [address]Performed By: #### 47872-5 ####[facility] LABIA [id number] [place], [place] [address]Jfluheooormh cell count method Nom (Bld)AutoNormalCHenry County Hospital on above:Order Comment: Specimen Type: BLOOD SPECIMENOrdering Facility: [facility] Address:[address] [place], [place] [address]Performed By: #### 71264-6 ####[facility] LABIA [id number] [place], [place] [address]Liayccaqucz (Bld) [#/Vol]0.04 10*3/uLNormal<0.46[facility] on above:Order Comment: Specimen Type: BLOOD SPECIMENOrdering Facility: [facility] Address:[address] [place], [place] [address]Performed By: #### 69488-7 ####[facility] LABIA [id number] [place], [place] [address]Ihubwlvbgny/100 WBC (Bld)0.7 %NormalTrinity Health System on above:Order Comment: Specimen Type: BLOOD SPECIMENOrdering Facility: [facility] Address:[address] [place], [place] [address]Performed By: #### 81396-1 ####[facility] LABCLIA [id number] [place], [place] [address]Jtwyrmtgkbk distribution width (RBC) [Ratio]13.8 %Normal 11.5-15.0[facility] on above:Order Comment: Specimen Type: BLOOD SPECIMENOrdering Facility: [facility] Address:[address] [place], [place] [address]Performed By: #### 64773-7 ####[facility] LABIA [id number] [place] [address] Hematocrit (Bld) [Volume fraction]33.2 %Low36.0-46.0[facility] Comment on above:Order Comment: Specimen Type: BLOOD SPECIMENOrdering Facility: [facility] Address:[address] [place] [address] Performed By: #### 92999-4 ####[facility] LABIA [id number] [place], [place] [address]Hclmldrsvj (Bld) [Mass/Vol]10.4 g/dLLow11.5-15.5CHenry County Hospital on above:Order Comment: Specimen Type: BLOOD SPECIMENOrdering Facility: [facility] Address:[address] [place], [place] [address]Performed By: #### 20697-2 ####[facility] LABIA [id number] [place], [place] [address]Gugnerpn granulocytes (Bld) [#/Vol]10*3/uLNormal<0.10 [facility] on above:Order Comment: Specimen Type: BLOOD SPECIMENOrdering Facility: [facility] Address:[address] [place], [place] [address]Performed By: #### 23555-7 ####[facility] LABCLIA [id number] [place], [place] [address]Uxrojhxz granulocytes/100 WBC (Bld)0.4 %NormalTrinity Health System on above: Order Comment: Specimen Type: BLOOD SPECIMENOrdering Facility: [facility] Address:[address] [place], [place] [address]Performed By: #### 99472- 8 ####[facility] LABCLIA [id number] [place], [place] [address]Pihozqjkrlp (Bld) [#/Vol]2.05 10*3/uLNormal1.00-4.00 [facility] on above:Order Comment: Specimen Type: BLOOD SPECIMENOrdering Facility: [facility] Address:[address] [place], [place] [address]Performed By: #### 71307-6 ####[facility] LABIA [id number] [place], [place] [address]Kbmbaqripmw/100 WBC (Bld)36.7 %NormalTrinity Health System on above:Order Comment: Specimen Type: BLOOD SPECIMENOrdering Facility: [facility] Address:[address] [place], [place] [address]Performed By: #### 59317-1 ####[facility] LABCLIA [id number] [place], [place] [address]BSJ (RBC) [Entitic mass]31.6 opLzdsna64.0-34.0[facility] on above:Order Comment: Specimen Type: BLOOD SPECIMENOrdering Facility: [facility] Address:[address] [place], [place] [address]Performed By: #### 24916-5 ####[facility] LABCLIA [id number] [place], [place] [address]VIOS (RBC) [Mass/Vol]31.3 g/hDKvcyyd63.5-36.0[facility] on above: Order Comment: Specimen Type: BLOOD SPECIMENOrdering Facility: [facility] Address:[address] [place], [place] [address]Performed By: #### 15517- 8 ####[facility] LABCLIA [id number] [place], [place] [address]VCX (RBC) [Entitic vol]100.9 uQKlfz00.0-100.0[facility] on above:Order Comment: Specimen Type: BLOOD SPECIMENOrdering Facility: [facility] Address:[address] [place], [place] [address]Performed By: #### 03084-4 ####[facility] LABIA [id number] [place], [place] [address]Orltqwogt (Bld) [#/Vol]0.26 10*3/uLNormal<0.87[facility] on above:Order Comment: Specimen Type: BLOOD SPECIMENOrdering Facility: [facility] Address:[address] [place], [place] [address]Performed By: #### 01206- 8 ####[facility] LABCLIA [id number] [place], [place] [address]Xkouhdwck/100 WBC (Bld)4.7 %NormalTrinity Health System on above:Order Comment: Specimen Type: BLOOD SPECIMENOrdering Facility: [facility] Address:[address] [place], [place] [address]Performed By: #### 28690-5 ####[facility] LABIA [id number] [place], [place] [address]Qftpwbgohcf (Bld) [#/Vol]3.20 10*3/uLNormal1.45-7.50[facility] on above:Order Comment: Specimen Type: BLOOD SPECIMENOrdering Facility: [facility] Address:[address] [place], [place] [address]Performed By: #### 70523-0 ####[facility] LABCLIA [id number] [place], [place] [address]Wbphelbvfan/100 WBC (Bld)57.1 %NormalTrinity Health System on above:Order Comment: Specimen Type: BLOOD SPECIMENOrdering Facility: [facility] Address:[address] [place], [place] [address]Performed By: #### 33683-4 ####[facility] LABCLIA [id number] [place], [place] [address]Dxruwrykl RBC (Bld) [#/Vol] 10*3/uLNormal<0.01[facility] on above:Order Comment: Specimen Type: BLOOD SPECIMENOrdering Facility: [facility] Address:[address] [place], [place] [address]Performed By: #### 66272-1 ####[facility] LABCLIA [id number] [place], [place] [address]Cfhigyenz RBC/100 WBC (Bld) [Ratio]0.0 /100 WBCNormal [facility] on above:Order Comment: Specimen Type: BLOOD SPECIMENOrdering Facility: [facility] Address:[address] [place], [place] [address]Performed By: #### 77209-9 ####[facility] LABIA [id number] [place], [place] [address]Lgbnnota mean volume (Bld) [Entitic vol]9.3 fLNormal9.0-12.7CHenry County Hospital on above:Order Comment: Specimen Type: BLOOD SPECIMENOrdering Facility: [facility] Address:[address] [place] [address] Performed By: #### 35617-8 ####[facility] LABCLIA [id number] [place], [place] [address]Slvvuzwub (Bld) [#/Vol]173 10*3/pLLndiya498-624AjvgrnvryTrinity Health System on above:Order Comment: Specimen Type: BLOOD SPECIMENOrdering Facility: [facility] Address:[address] [place], [place] [address]Performed By: #### 69923-6 ####[facility] LABCLIA [id number] [place], [place] [address]TMQ (Bld) [#/Vol]3.29 10*6/uLLow3.90-5.20[facility] on above:Order Comment: Specimen Type: BLOOD SPECIMENOrdering Facility: [facility] Address:[address] [place], [place] [address]Performed By: #### 31506-9 ####[facility] LABIA [id number] [place], [place] [address]MTD (Bld) [#/Vol]5.59 10*3/uL Normal3.70-11.00[facility] on above:Order Comment: Specimen Type: BLOOD SPECIMENOrdering Facility: [facility] Address:[address] [place], [place] [address]Performed By: #### 27137-1 ####[facility] LABIA [id number] [place], [place] [address]HBQXBUHqr 04-27-7070FADCMEZXsaoivXbtqtsikh Clinic ClevelandCNOVSPon 92-12-9983BBZMTBVkvsyeJoucsxmse Clinic ClevelandComprehensive metabolic 2000 panelon 16-17-9295Ywxiadd [Mass/Vol]3.8 g/dLLow3.9-4.9CHenry County Hospital on above:Order Comment: Specimen Type: BLOOD SPECIMENOrdering Facility: [facility] Address:[address] [place], [place] [address]Result Comment: Corrected result: Previously reported as 3.7 g/dL on 08/30/2024 at 10:57 AM EST.Performed By: #### 53017-1 ####[facility] LABCLIA [id number] [place] [address] [place] AMERICAALP [Catalytic activity/Vol]84 U/ZPaysab98-619 [facility] on above:Order Comment: Specimen Type: BLOOD SPECIMENOrdering Facility: [facility] Address:[address] [place], [place] [address]Result Comment: Corrected result: Previously reported as 80 U/L on 08/30/2024 at 10:57 AM EST.Performed By: #### 08499-9 ####[facility] LABIA [id number] [place] [address] [place] AMERICAALT [Catalytic activity/Vol]15 U/LNormal7-38[facility] on above:Order Comment: Specimen Type: BLOOD SPECIMENOrdering Facility: [facility] Address:[address] [place], [place] [address]Result Comment: Corrected result: Previously reported as 11 U/L on 08/30/2024 at 10:57 AM EST.Performed By: #### 54917-3 ####[facility] LABIA [id number] [place] [address] [place] AMERICAAnion gap [Moles/Vol]9 mmol/LNormal8-15[facility] on above:Order Comment: Specimen Type: BLOOD SPECIMENOrdering Facility: [facility] Address:[address] [place], [place] [address]Performed By: #### 04419-0 ####[facility] LABIA [id number] [place] [address] [place] AST [Catalytic activity/Vol]24 U/MWowlul35-60XugdankvxTrinity Health System on above:Order Comment: Specimen Type: BLOOD SPECIMENOrdering Facility: [facility] Address:[address] [place], [place] [address]Result Comment: Corrected result: Previously reported as 18 U/L on 08/30/2024 at 10:57 AM EST.Performed By: #### 78035-3 ####[facility] LABCLIA [id number] [place] [address] [place] Bilirubin [Mass/Vol]0.5 mg/dLNormal0.2-1.3CHenry County Hospital on above:Order Comment: Specimen Type: BLOOD SPECIMENOrdering Facility: [facility] Address:[address] [place], [place] [address]Result Comment: Corrected result: Previously reported as 0.4 mg/dL on 08/30/2024 at 10:57 AM EST. Performed By: #### 34275-3 ####[facility] LABCLIA [id number] [place] [address] [place] Calcium [Mass/Vol]9.4 mg/dLNormal8.5-10.2CHenry County Hospital on above:Order Comment: Specimen Type: BLOOD SPECIMENOrdering Facility: [facility] Address:[address] [place], [place] [address]Result Comment: Corrected result: Previously reported as 9.1 mg/dL on 08/30/2024 at 10:57 AM EST. Performed By: #### 54466-6 ####[facility] LABCLIA [id number] [place] [address] [place] Chloride [Moles/Vol]105 mmol/MMjrzaz17-725HgsfcxgmrTrinity Health System on above:Order Comment: Specimen Type: BLOOD SPECIMENOrdering Facility: [facility] Address:[address] [place], [place] [address]Performed By: #### 91891-8 ####[facility] LABCLIA [id number] [place] [address] [place] AMERICACO2 [Moles/Vol]25 mmol/ZTzhvop05-67PtdrvjpvvTrinity Health System on above:Order Comment: Specimen Type: BLOOD SPECIMENOrdering Facility: [facility] Address:[address] [place] [address]Dgkujs Comment: Corrected result: Previously reported as 27 mmol/L on 08/30/2024 at 10:57 AM EST.Performed By: #### 80609-1 ####[facility] LABCLIA [id number] [place] [address] [place] AMERICACreatinine [Mass/Vol] 1.38 mg/dLHigh0.58-0.96[facility] on above:Order Comment: Specimen Type: BLOOD SPECIMENOrdering Facility: [facility] Address:[address] [place], [place] [address]Result Comment: Corrected result: Previously reported as 1.31 mg/dL on 08/30/2024 at 10:57 AM EST.Performed By: #### 07751-3 ####[facility] LABIA [id number] [place] [address] [place] AMERICACreatinine and Glomerular filtration rate.predicted panel (S/P/Bld)40 mL/min/1.73m???Low>=60 [facility] on above:Order Comment: Specimen Type: BLOOD SPECIMENOrdering Facility: [facility] Address:[address] [place] [address]Vosvmv Comment: Estimated Glomerular Filtration Rate (eGFR) is calculated using [...] 43 mL/min/1.73m??? on 08/30/2024 at 10:57 AM EST.Performed By: #### 67443-1 ####[facility] LABCLIA [id number] [place] [address] [place] AMERICAGlucose [Mass/Vol]102 mg/oDJsuo80-45WpoeccspnTrinity Health System on above:Order Comment: Specimen Type: BLOOD SPECIMENOrdering Facility: [facility] Address:[address] [place], [place] [address]Result Comment: The [place] Diabetes Association (ADA) provides guidance for cutoff values for fasting glucose and random glucose. The ADA defines fasting as no caloric intake for at least 8 hours. Fasting plasma glucose results between 100 to 125 mg/dL indicate increased risk for diabetes (prediab etes).Fasting plasma glucose results greater than or equal to 126 mg/dL meet the criteria for diagnosis of diabetes. In the absence of unequivocal hyperglycemia, results should be confirmed by repeattesting. In a patient with classic symptoms of hyperglycemia or hyperglycemic crisis, random plasmaglucose results greater than or equal to 200 mg/dL meet the criteria for diagnosis of diabetes.Reference: Standards of Medical Care in Diabetes 2016, [place] [employer] Association. Diabetes Care. 2016.39(Suppl 1).Performed By: #### 29440-7 ####[facility] LABCLIA [id number] [place] [address] [place] AMERICAPotassium [Moles/Vol]4.9 mmol/L Normal3.7-5.1CHenry County Hospital on above:Order Comment: Specimen Type: BLOOD SPECIMENOrdering Facility: [facility] Address:[address] [place], [place] [address]Performed By: #### 22205-4 ####[facility] LABCLIA [id number] [place] [address] [place] AMERICAProtein [Mass/Vol]7.5 g/dLNormal6.3-8.0[facility] on above:Order Comment: Specimen Type: BLOOD SPECIMENOrdering Facility: [facility] Address:[address] [place], [place] [address]Result Comment: Corrected result: Previously reported as 7.3 g/dL on 08/30/2024 at 10:57 AM EST.Performed By: #### 69794-1 ####[facility] LABCLIA [id number] [address] STATES OF AMERICASodium [Moles/Vol]139 mmol/PUfclmc681-175EhwzpwovzTrinity Health System on above:Order Comment: Specimen Type: BLOOD SPECIMENOrdering Facility: [facility] Address:[address] [place], [place] [address]Performed By: #### 10165-2 ####[facility] LABCLIA [id number] [place] [address] [place] Urea nitrogen [Mass/Vol]29 mg/dLHigh7-21[facility] on above:Order Comment: Specimen Type: BLOOD SPECIMENOrdering Facility: [facility] Address:[address] [place], [place] [address]Result Comment: Corrected result: Previously reported as 30 mg/dL on 08/30/2024 at 10:57 AM EST. Performed By: #### 23594-8 ####[facility] LABCLIA [id number] [place] [address] [place] Ferritin SerPl-mCncon 60-43-2940Nzcjozib [Mass/Vol]115.0 ng/pHMfptap14.7-205.1 [facility] on above:Order Comment: Specimen Type: BLOOD SPECIMENOrdering Facility: [facility] Address:[address] [place], [place] [address]Performed By: #### 2276-4, 2-9, 2284-8, 04299-6 ####[facility] LABCLIA [id number] [place] [address] [place] AMERICAFolate SerPl-mCncon 08-30-2024 Folate [Mass/Vol]6.1 ng/mLNormal>4.7CHenry County Hospital on above: Order Comment: Specimen Type: BLOOD SPECIMENOrdering Facility: [facility] Address:[address] [place], [place] [address]Performed By: #### 2276- 4, 2132-9, 2284-8, 88403-8 ####[facility] LABCLIA [id number] [address] [place] OF AMERICAIron and Iron binding capacity panelon 20-01-2277Uwnw [Mass/Vol]55 ug/iJHztksr92-171 [facility] on above:Order Comment: Specimen Type: BLOOD SPECIMENOrdering Facility: [facility] Address:[address] [place], [place] [address]Performed By: #### 2276-4, 2131-9, 2283-8, 73819-2 ####[facility] LABCLIA [id number] [place] [address] [place] AMERICAIron binding capacity [Mass/Vol] 307 ug/jIIoajvn227-025UpkizftarTrinity Health System on above:Order Comment: Specimen Type: BLOOD SPECIMENOrdering Facility: [facility] Address:[address] [place], [place] [address]Performed By: #### 2276-4, 9, 2283-8, 64758-5 ####[facility] LABCLIA [id number] [place] [address] [place] AMERICAIron/TIBC [Molar ratio]17.9 %Ibqncg51.0-57.0[facility] on above:Order Comment: Specimen Type: BLOOD SPECIMENOrdering Facility: [facility] Address:[address] [place], [place] [address]Performed By: #### 2276- 4, 2131-9, 2283-8, 06259-7 ####[facility] LABCLIA [id number] [place] [address] [place] AMERICAVit B12 SerPl-mCncon 60-29-9558Rsjwladoc (Vitamin B12) [Mass/Vol]680 pg/nJSrillj846-2871 [facility] on above:Order Comment: Specimen Type: BLOOD SPECIMENOrdering Facility: [facility] Address:[address] [place], [place] [address]Performed By: #### 2276-4, 2132-9, 2284-8, 64783-9 ####[facility] LABCLIA [id number] [address] [address] [place] STATES OF AMERICACOMPLETE BLOOD COUNTon 08-12-2024 Erythrocyte distribution width (RBC) [Ratio]14.4 %Diatpy12.5-15.0Bellevue HospitalComment on above:Performed By: #### RED DENSON #### [facility] ([id number]) [address], [address] [place], [place] [address]Rysccvgnbw (Bld) [Volume fraction]31.6 %Gqa59-11MqeKfxksbKnapp Medical CenterComment on above:Performed By: #### RED DENSON #### [facility] ([id number]) [address], [address] [place], [place] [address]Pahsskjsox (Bld) [Mass/Vol]10.6 g/dLLow11.7-15.5PMiddletown HospitalComment on above:Performed By: #### RED DENSON #### [facility] ([id number]) [address], [address] [place], [place] [address]GPZ (RBC) [Entitic mass]33.0 lrLgfcea54-54OagAmsxguBellevue HospitalComment on above:Performed By: #### RED DENSON #### [facility] ([id number]) [address], [address] [place], [place] [address]FXQS (RBC) [Mass/Vol]33.5 g/bLThqdly05-16FbrVndogxKnapp Medical CenterComment on above:Performed By: #### RED DENSON #### [facility] ([id number]) [address], [address] [place] [address]KJI (RBC) [Entitic vol]99 eUXvfsgn33-944UmlIkzlio [facility]remont HospitalComment on above:Performed By: #### RED DENSON #### [facility] ([id number]) [address], [address] [place] [address]Nvdixsro mean volume (Bld) [Entitic vol]7.9 fLNormal7-12 [facility] HospitalComment on above:Performed By: #### RED DENSON #### [facility] ([id number]) [address], [address] [place] [address]Euapdojwk (Bld) [#/Vol]152 10*3/mFGxnyxc188-388ClwPfretj [facility]ont HospitalComment on above:Performed By: #### RED DENSON #### [facility] ([id number]) [address], [address] [place] [address]QII COUNT3.21 X10E12/LLow3.80-5.20[facility] Comment on above:Performed By: #### RED DENSON #### [facility] ([id number]) [address], [address] [place], [place] [address]KKH (Bld) [#/Vol]3.8 10*3/uLLow4.0-11.0B[facility]vue HospitalComment on above:Performed By: #### RED DENSON #### [facility] ([id number]) [address], [address] [place], [place] [address]HSEHDFOBSqc 64-62-3430Wwzmfpdep [Mass/Vol]2.4 mg/dLNormal1.8-2.6 [facility] HospitalComment on above:Performed By: #### RED DENSON #### [facility] ([id number]) [address], [address] [place], [place] [address]ZMOOHTW CREAT RATIOon 40-16-3044ZBJNYG URINE WIIXJBF063 mg/LHigh <120ProKnapp Medical CenterComment on above:Performed By: #### RED DENSON #### [facility] ([id number]) [address], [address] [place], [place] [address]C/PRO/SR ACCOUNT EXECUTIVE RATIO CALC0.17Normal<0.2PMiddletown Hospital Comment on above:Result Comment: Nephrotic Syndrome is associated with ratios >3.5Performed By: #### RED DENSON #### [facility] ([id number]) [address], [address] [place], [place] [address]LTVSD CREATININE,NSC681.97 mg/dLPike Community Hospital Comment on above:Performed By: #### RED DENSON #### [facility] ([id number]) [address], [address] [place], [place] [address]Ebptzplmds.intact [Mass/Vol]on 92-63-1249WCU PJHFRH37 pg/mL Htxnhl70-91XrmPlytyeBellevue HospitalComment on above:Performed By: #### RED DENSON #### [facility] ([id number]) [address], [address] [place], [place] [address]GUPOH PANELon 36-68-8806Myzqqlm [Mass/Vol]3.7 g/dLNormal3.2-5.3 [facility]vue HospitalComment on above:Performed By: #### RED DENSON #### [facility] ([id number]) [address], [address] [place], [place] [address]Tgcfa gap [Moles/Vol]6 mmol/LNormal5-15Bellevue HospitalComment on above:Performed By: #### RED DENSON #### [facility] ([id number]) [address], [address] [place], [place] [address]Isedvce [Mass/Vol]9.3 mg/dLNormal8.5-10.5PMiddletown HospitalComment on above:Performed By: #### RED DENSON #### [facility] ([id number]) [address], [address] [place], [place] [address]Zyzmveav [Moles/Vol]111 mmol/BMgjr29-443QqdRvhvssKnapp Medical CenterComment on above:Performed By: #### RED DENSON #### [facility] ([id number]) [address], [address] [place] [address]JU8 [Moles/Vol]21 mmol/ARuo40-13LhbZxjsnwMiddletown Hospital Comment on above:Performed By: #### RED DENSON #### [facility] ([id number]) [address], [address] [place], [place] [address]Zgtwktynkn [Mass/Vol]1.40 mg/dLHigh0.40-1.00Bellevue HospitalComment on above:Result Comment: METHOD TRACEABLE TO IDMS STANDARD Performed By: #### RED DENSON #### [facility] ([id number]) [address], [address] [place], [place] [address]REO/1.73 sq M.predicted among non-blacks MDRD (S/P/Bld) [Vol rate/Area]40 mL/min/{1.73_m2}Low>59ProKnapp Medical CenterComment on above: Result Comment: Reported eGFR is based on the CKD-EPI 1 equation that does not use a race coefficient.Performed By: #### RED DENSON #### [facility] ([id number]) [address] [place], [place] [address]Ppdzcpn [Mass/Vol]100 mg/iVTodz55-24VrxQymgppBellevue Hospital Comment on above:Performed By: #### RED DENSON #### [facility] ([id number]) [address] [address] [place], [place] [address]Xlejavfhf [Mass/Vol]3.1 mg/dLNormal2.4-4.9Bellevue HospitalComment on above:Performed By: #### RED DENSON #### [facility] ([id number]) [address], [address] [place], [place] [address]Xlstwamua [Moles/Vol]4.9 mmol/LNormal3.5-5.0Bellevue HospitalComment on above:Performed By: #### RED DENSON #### [facility] ([id number]) [address], [address] [place], [place] [address]Aexmwf [Moles/Vol]138 mmol/BPgbybi864-399HagLmnbab [facility]remont HospitalComment on above:Performed By: #### RED DENSON #### [facility] ([id number]) [address], [address] [place], [place] [address]Jbjh nitrogen [Mass/Vol]38 mg/dLHigh5-27Bellevue HospitalComment on above:Performed By: #### RED DENSON #### [facility] ([id number]) [address], [address] [place], [place] [address]PSIS ACIDon 82-67-7812Tqcav [Mass/Vol]7.3 mg/dLHigh2.6-7.2 Bellevue HospitalComment on above:Performed By: #### RED EDNSON #### [facility] ([id number]) [address], [address] [place], [place] [address]WJTOOGWBFKzn 76-68-6775Mvtdstexl Ql (U)NegativeNormalNEG Bellevue HospitalComment on above:Performed By: #### RED DENSON #### [facility] ([id number]) [address], [address] [place], [place] [address]XRWSK/HGBNegativeNormalNEGBellevue HospitalComment on above:Performed By: #### RED DENSON #### [facility] ([id number]) [address], [address] [place], [place] [address]Edvfq (U)YELLOWNormalYELLOWProKnapp Medical CenterComment on above:Performed By: #### RED DENSON #### [facility] ([id number]) [address], [address] [place], [place] [address]Ybyvspj Ql (U)NegativeNormalNEGProKnapp Medical CenterComment on above:Performed By: #### RED DENSON #### [facility] ([id number]) [address], [address] [place], [place] [address]Szfsons Ql (U)NegativeNormalNEGProKnapp Medical CenterComment on above:Performed By: #### RED DENSON #### [facility] ([id number]) [address], [address] [place], [place] [address]Fppcifayv esterase Test strip Ql (U)SmallAbnormalNEGProKnapp Medical CenterCommunson medical center on above:Performed By: #### RED DENSON #### [facility] ([id number]) [address], [address] [place], [place] [address]Ymagdfd Ql (U)NegativeNormalNEGProKnapp Medical CenterComment on above:Performed By: #### RED DENSON #### [facility] ([id number]) [address], [address] [place], [place] [address]kQ (U)6.0 [pH]Normal5.0-8.5PMiddletown HospitalComment on above:Performed By: #### RED DENSON #### [facility] ([id number]) [address], [address] [place], [place] [address]Qwhiytr Ql (U)TraceAbnormalNEGBellevue HospitalComment on above:Performed By: #### RED DENSON #### [facility] ([id number]) [address], [address] [place], [place] [address]W.B.CELLS1 /hpfNormal0-5PMiddletown HospitalComment on above:Performed By: #### RED DENSON #### [facility] ([id number]) [address], [address] [place], [place] [address]Suvlmlry gravity (U) [Rel density]1.959Prusqa3.003-1.035 Bellevue HospitalComment on above:Performed By: #### JARETT VIRGINIAPHYLLIS #### [facility] ([id number]) [address], [address] [place], [place] [address]RGFXMMWC VXSKUEZFUU53 /hpfHigh0-5PMiddletown Hospital Comment on above:Performed By: #### RED DENSON #### [facility] ([id number]) [address], [address] [place], [place] [address]PBMGYOPUFOLF EPITH1 /wyqVpxm3KxaCcjxkxBellevue HospitalComment on above:Performed By: #### RED DENSON #### [facility] ([id number]) [address], [address] [place], [place] [address]TWRMRMSROGVFYGhqotonlQTWGITmxVexjxq [facility]ont HospitalComment on above:Performed By: #### JARETT VIRGINIAPHYLLIS #### [facility] ([id number]) [address], [address] [place], [place] [address]Dfyzjiaeskdo Qn (U)0.2 {Hao'U}/dLNormal<1.1PMiddletown HospitalComment on above:Performed By: #### JARETT VIRGINIAPHYLLIS #### [facility] ([id number]) [address], [address] [place], [place] [address]B.B.CELLS2 /hpfNormal0-5PMiddletown HospitalComment on above:Performed By: #### RED DENSON #### [facility] ([id number]) [address], [address] [place], [place] [address]Betnhzp D+Metabolites [Mass/Vol]on 55-81-0995NCLAGDG D 25 HYD TOT19.5 ng/jEXpe19-899FrxJpzcwbBellevue HospitalComment on above:Result Comment: Vitamin D status 25 [place] Vitamin D Deficiency <20 ng/mL Insufficiency 20-29 ng/mL Sufficiency 30-100 ng/mL Toxicity >100 ng/mL NOTE: A pediatric reference range has not been established by the chief estimator of this kit. The [place] [employer] recommends a Vitamin D level of = or >20ng/mL in infants and children.Performed By: #### UA, RED #### [facility] ([id number]) [address], [address] [place], [place] [address]PPQJyb 60-93-0489PGRAGojghwBljnzdxom Clinic ClevelandMR LOWER LEG LT W WO CONTon 01-74-8543XV LOWER LEG LT W WO CONTMR LOWER LEG LT W WO CONT Clinical history: Leg weakness. Pain. MRI left lower leg with and without contrast: 07/18/2024 PROCEDURE: Multiplanar multisequence imaging of the lower leg was performed before and after 16.7 mL of ProHance intravenously. Correlation: Tibia and fibular radiographs from 03/28/2012. FINDINGS: Present lobular area of decreased signal on all sequences within the proximal tibia measuring 4.3 x2.4 x 1.6 cm. This is partially intraosseous with extension to the lateral cortex and into the softtissues at the posterior tibialis muscle belly. Peripherally [...] otherwise present. There is soft tissue irregularity withinthe pretibial region. IMPRESSION: Healed tibial and fibular fractures with residual deformity. Lobular areas of suspected cement within the proximal tibia and extending into the soft tissues of the proximal calf laterally. The some enhancement around this material within the proximal aspect ofthe posterior tibialis muscle belly but no abnormal fluid collection or myotendinous disruption is evident. No acute osseous signal change. No abnormal postcontrast enhancement. Finalized by Fidel Samaniego MD on 07/19/2024 6:30 [facility] HospitalMR KNEE LT W WO CONTon 95-51-0154AM KNEE LT W WO CONTMR KNEE LT W WO CONT MR KNEE LT W WO CONT HISTORY: [...] Mild nonspecific soft tissue edema overlying the patellaand infrapatellar fat pad. Soft tissues: No pathologic postcontrast enhancement identified. OSSEOUS and ARTICULAR STRUCTURES Bones: No acute fracture. Partially imaged postoperative appearance of the lateral tibial diaphysis. Marrow signal appears very fatty-replaced. This may indicate underlying osteoporosis. Consider DEXA scanning if felt indicated. Patellofemoral compartment: Overall moderate articular chondral thinning/irregularity most pronounced of the medial patellar facet. No full- thickness chondral defect. Medial compartment: Mild hyaline cartilage [...] Mary Ellen Burton MD on 07/18/2024 3:48 PMNormalProMedica Marinhealth [facility] 36on [id number] office called and asked for both MRI orders to be sent over to the fax number [phone]. P[employer]own Glass Worker faxed both papers over.[facility] W Auto Differential panel (Bld)on 55-18-3676Zxakqilus (Bld) [#/Vol]10*3/uLNormal <0.11CHenry County Hospital on above:Order Comment: Specimen Type: BLOOD SPECIMENOrdering Facility: [facility] Address:[address] [place], [place] [address]Performed By: #### 98933-1 ####[facility] LABCLIA [id number] [place] [address] Basophils/100 WBC (Bld)0.5 %NormalTrinity Health System on above: Order Comment: Specimen Type: BLOOD SPECIMENOrdering Facility: [facility] Address:[address] [place], [place] [address]Performed By: #### 36806- 8 ####[facility] LABCLIA [id number] [place], [place] [address]Jzbuxrgzekul cell count method Nom (Bld)AutoNormal [facility] on above:Order Comment: Specimen Type: BLOOD SPECIMENOrdering Facility: [facility] Address:[address] [place], [place] [address]Performed By: #### 45461-3 ####[facility] LABCLIA [id number] [place], [place] [address]Pthwbvqtqug (Bld) [#/Vol]10*3/uLNormal<0.46[facility] on above:Order Comment: Specimen Type: BLOOD SPECIMENOrdering Facility: [facility] Address:[address] [place], [place] [address]Performed By: #### 29887- 8 ####[facility] LABCLIA [id number] [place], [place] [address]Vlyidkxpxyq/100 WBC (Bld)0.5 %NormalTrinity Health System on above:Order Comment: Specimen Type: BLOOD SPECIMENOrdering Facility: [facility] Address:[address] [place], [place] [address]Performed By: #### 79998-9 ####[facility] LABIA [id number] [place], [place] [address]Mkalvloennq distribution width (RBC) [Ratio]13.9 %Zslxmz17.5-15.0[facility] on above: Order Comment: Specimen Type: BLOOD SPECIMENOrdering Facility: [facility] Address:[address] [place], [place] [address]Performed By: #### 09364- 8 ####[facility]ITAL[facility] [id number] [place], [place] [address]Vmnckwdily (Bld) [Volume fraction]34.4 %Low36.0-46.0 [facility] on above:Order Comment: Specimen Type: BLOOD SPECIMENOrdering Facility: [facility] Address:[address] [place], [place] [address]Performed By: #### 01744-9 ####[facility] LABIA [id number] [place], [place] [address]Pgygjmyevl (Bld) [Mass/Vol]10.9 g/dLLow11.5-15.5CHenry County Hospital on above:Order Comment: Specimen Type: BLOOD SPECIMENOrdering Facility: [facility] Address:[address] [place], [place] [address]Performed By: #### 81785- 8 ####[facility] LABIA [id number] [place], [place] [address]Qffuofbq granulocytes (Bld) [#/Vol]10*3/uLNormal<0.10 [facility] on above:Order Comment: Specimen Type: BLOOD SPECIMENOrdering Facility: [facility] Address:[address] [place], [place] [address]Performed By: #### 45682-9 ####[facility] LABIA [id number] [place], [place] [address]Pkskgjly granulocytes/100 WBC (Bld)0.2 %NormalTrinity Health System on above: Order Comment: Specimen Type: BLOOD SPECIMENOrdering Facility: [facility] Address:[address] [place], [place] [address]Performed By: #### 17246- 8 ####[facility] LABCLIA [id number] [place], [place] [address]Balnkmbqbzv (Bld) [#/Vol]1.56 10*3/uLNormal1.00-4.00 [facility] on above:Order Comment: Specimen Type: BLOOD SPECIMENOrdering Facility: [facility] Address:[address] [place], [place] [address]Performed By: #### 63271-4 ####[facility] LABIA [id number] [place], [place] [address]Xljmhnhhdxf/100 WBC (Bld)36.2 %NormalTrinity Health System on above:Order Comment: Specimen Type: BLOOD SPECIMENOrdering Facility: [facility] Address:[address] [place], [place] [address]Performed By: #### 48695-3 ####[facility] LABIA [id number] [place], [place] [address]IGA (RBC) [Entitic mass]31.7 axXgdzdu25.0-34.0[facility] on above:Order Comment: Specimen Type: BLOOD SPECIMENOrdering Facility: [facility] Address:[address] [place], [place] [address]Performed By: #### 64009-6 ####[facility] LABIA [id number] [place], [place] [address]QEXS (RBC) [Mass/Vol]31.7 g/qJAjyowd15.5-36.0[facility] on above: Order Comment: Specimen Type: BLOOD SPECIMENOrdering Facility: [facility] Address:[address] [place], [place] [address]Performed By: #### 85729- 8 ####[facility] LABCLIA [id number] [place], [place] [address]URU (RBC) [Entitic vol]100.0 rLSvdeub41.0-100.0[facility] on above:Order Comment: Specimen Type: BLOOD SPECIMENOrdering Facility: [facility] Address:[address] [place], [place] [address]Performed By: #### 51579-9 ####[facility] LABCLIA [id number] [place], [place] [address]Nuhjpgvup (Bld) [#/Vol]0.18 10*3/uLNormal<0.87[facility] on above:Order Comment: Specimen Type: BLOOD SPECIMENOrdering Facility: [facility] Address:[address] [place], [place] [address]Performed By: #### 92874- 8 ####[facility] LABCLIA [id number] [place], [place] [address]Zpgprzpsn/100 WBC (Bld)4.2 %NormalTrinity Health System on above:Order Comment: Specimen Type: BLOOD SPECIMENOrdering Facility: [facility] Address:[address] [place], [place] [address]Performed By: #### 45287-0 ####[facility] LABCLIA [id number] [place], [place] [address]Xaeausgakgk (Bld) [#/Vol]2.52 10*3/uLNormal1.45-7.50[facility] on above:Order Comment: Specimen Type: BLOOD SPECIMENOrdering Facility: [facility] Address:[address] [place], [place] [address]Performed By: #### 47105-6 ####[facility] LABCLIA [id number] [place], [place] [address]Tsrorhdmkpy/100 WBC (Bld)58.4 %NormalTrinity Health System on above:Order Comment: Specimen Type: BLOOD SPECIMENOrdering Facility: [facility] Address:[address] [place], [place] [address]Performed By: #### 90322-3 ####[facility] LABCLIA [id number] [place], [place] [address]Qmrwnjnil RBC (Bld) [#/Vol] 10*3/uLNormal<0.01[facility] on above:Order Comment: Specimen Type: BLOOD SPECIMENOrdering Facility: [facility] Address:[address] [place], [place] [address]Performed By: #### 83504-3 ####[facility] LABIA [id number] [place], [place] [address]Ozzoxafwi RBC/100 WBC (Bld) [Ratio]0.0 /100 WBCNormal [facility] on above:Order Comment: Specimen Type: BLOOD SPECIMENOrdering Facility: [facility] Address:[address] [place], [place] [address]Performed By: #### 52196-6 ####[facility] LABIA [id number] [place], [place] [address]Lhgkaaiv mean volume (Bld) [Entitic vol]9.1 fLNormal9.0-12.7CHenry County Hospital on above:Order Comment: Specimen Type: BLOOD SPECIMENOrdering Facility: [facility] Address:[address] [place] [address] Performed By: #### 96458-9 ####[facility] LABIA [id number] [place], [place] [address]Ezntkwwan (Bld) [#/Vol]139 10*3/pQVab872-683SvzccvcxfTrinity Health System on above:Order Comment: Specimen Type: BLOOD SPECIMENOrdering Facility: [facility] Address:[address] [place], [place] [address]Performed By: #### 30641-1 ####[facility] LABCLIA [id number] [place], [place] [address]OYM (Bld) [#/Vol]3.44 10*6/uLLow3.90-5.20[facility] on above:Order Comment: Specimen Type: BLOOD SPECIMENOrdering Facility: [facility] Address:[address] [place], [place] [address]Performed By: #### 83965-0 ####[facility] LABCLIA [id number] [place], [place] [address]IDZ (Bld) [#/Vol]4.31 10*3/uL Normal3.70-11.00[facility] on above:Order Comment: Specimen Type: BLOOD SPECIMENOrdering Facility: [facility] Address:[address] [place], [place] [address]Performed By: #### 61257-2 ####[facility] LABCLIA [id number] [place], [place] [address]RPKMGFLqo 96-74-3802QKCVMTUYhnebqHhszpecgn Clinic ClevelandCNOVSPon 07-44-2798PEQOTEVrttpxKdisnxwmf Clinic ClevelandComprehensive metabolic 2000 panelon 82-31-5836Zowfwxo [Mass/Vol]3.8 g/dLLow3.9-4.9CHenry County Hospital on above:Order Comment: Specimen Type: BLOOD SPECIMENOrdering Facility: [facility] Address:[address] [place], [place] [address]Performed By: #### 05399-0 ####[facility] LABCLIA [id number] [place], [place] [address]KGG [Catalytic activity/Vol]68 U/EZmfrcb64-677SrzsemrdiTrinity Health System on above:Order Comment: Specimen Type: BLOOD SPECIMENOrdering Facility: [facility] Address:[address] [place], [place] [address]Performed By: #### 17404- 8 ####[facility] LABCLIA [id number] [place] [address]SPF [Catalytic activity/Vol]11 U/LNormal7-38[facility] on above:Order Comment: Specimen Type: BLOOD SPECIMENOrdering Facility: [facility] Address:[address] [place], [place] [address]Performed By: #### 56699-8 ####[facility] LABCLIA [id number] [place], [place] [address]Nrqfi gap [Moles/Vol]7 mmol/LLow8-15[facility] on above:Order Comment: Specimen Type: BLOOD SPECIMENOrdering Facility: [facility] Address:[address] [place], [place] [address]Performed By: #### 99084- 8 ####[facility] LABCLIA [id number] [place] [address]TAV [Catalytic activity/Vol]18 U/RHhkkru82-32NnmahxipfTrinity Health System on above:Order Comment: Specimen Type: BLOOD SPECIMENOrdering Facility: [facility] Address:[address] [place], [place] [address]Performed By: #### 24103-8 ####[facility] LABCLIA [id number] [place] [address]Yqenlmwka [Mass/Vol]0.4 mg/dLNormal0.2-1.3CHenry County Hospital on above:Order Comment: Specimen Type: BLOOD SPECIMENOrdering Facility: [facility] Address:[address] [place], [place] [address]Performed By: #### 79243- 8 ####[facility] LABCLIA [id number] [place], [place] [address]Fguefxo [Mass/Vol]9.8 mg/dLNormal8.5-10.2CHenry County Hospital on above:Order Comment: Specimen Type: BLOOD SPECIMENOrdering Facility: [facility] Address:[address] [place], [place] [address]Performed By: #### 95222-3 ####[facility] LABCLIA [id number] [place], [place] [address]Uskdvgid [Moles/Vol]106 mmol/L Laxhej06-903ZkbyelkobTrinity Health System on above:Order Comment: Specimen Type: BLOOD SPECIMENOrdering Facility: [facility] Address:[address] [place], [place] [address]Performed By: #### 53726-7 ####[facility] LABCLIA [id number] [place] [address] CO2 [Moles/Vol]25 mmol/TNednsx67-36ZlniznixnTrinity Health System on above: Order Comment: Specimen Type: BLOOD SPECIMENOrdering Facility: [facility] Address:[address] [place], [place] [address]Performed By: #### 56149- 8 ####[facility] LABCLIA [id number] [place], [place] [address]Avsjfdjnfa [Mass/Vol]1.34 mg/dLHigh0.58-0.96[facility] on above:Order Comment: Specimen Type: BLOOD SPECIMENOrdering Facility: [facility] Address:[address] [place], [place] [address]Performed By: #### 25769-2 ####[facility] LABIA [id number] [place], [place] [address]Veiyiobkoi and Glomerular filtration rate.predicted panel (S/P/Bld)42 mL/min/1.73m???Low>=60 [facility] on above:Order Comment: Specimen Type: BLOOD SPECIMENOrdering Facility: [facility] Address:[address] [place], [place] [address]Wkarua Comment: Estimated Glomerular Filtration Rate (eGFR) is calculated using the 2020 CKD-EPI creatinine equation. This equation utilizes serum creatinine, sex, and age as parameters. The creatinine assay has traceable calibration to isotope dilution-mass spectrometry. Refer to KDIGO guidelines for clinical interpretation. In patients with unstable renal function, e.g. those with acute kidney injury, the eGFR may not accurately reflect actual GFR.Performed By: #### 67954-2 ####[facility] LABCLIA [id number] [place], [place] [address]Mbmtopp [Mass/Vol]111 mg/jNRanu41-13CcomynehxTrinity Health System on above:Order Comment: Specimen Type: BLOOD SPECIMENOrdering Facility: [facility] Address:[address] [place], [place] [address]Result Comment: The [place] [employer] (ADA) provides guidance for cutoff values for fast ing glucose and random glucose. The ADA defines fasting as no caloric intake for at least 8 hours. Fasting plasma glucose results between 100 to 125 mg/dL indicate increased risk for diabetes (prediabetes).Fasting plasma glucose results greater than or equal to 126 mg/dL meet the criteria for diagnosis of diabetes. In the absence of unequivocal hyperglycemia, results should be confirmed by repeattesting. In a patient with classic symptoms of hyperglycemia or hyperglycemic crisis, random plasmaglucose results greater than or equal to 200 mg/dL meet the criteria for diagnosis of diabetes.Reference: Standards of Medical Care in Diabetes 2016, [place] [employer]. Diabetes Care. 2016.39(Suppl 1).Performed By: #### 34886-1 ####[facility] LABCLIA [id number] [place], [place] [address]Gutzrkdsq [Moles/Vol]5.1 mmol/LNormal3.7-5.1CHenry County Hospital on above: Order Comment: Specimen Type: BLOOD SPECIMENOrdering Facility: [facility] Address:[address] [place], [place] [address]Performed By: #### 14966- 8 ####[facility] LABCLIA [id number] [place], [place] [address]Zesgfxz [Mass/Vol]7.1 g/dLNormal6.3-8.0[facility] on above:Order Comment: Specimen Type: BLOOD SPECIMENOrdering Facility: [facility] Address:[address] [place], [place] [address]Performed By: #### 06318-8 ####[facility] LABCLIA [id number] [place], [place] [address]Ehfljp [Moles/Vol]138 mmol/L Ucooqw657-645DnabqymgpTrinity Health System on above:Order Comment: Specimen Type: BLOOD SPECIMENOrdering Facility: [facility] Address:[address] [place], [place] [address]Performed By: #### 81176-7 ####[facility] LABCLIA [id number] [place] [address] Urea nitrogen [Mass/Vol]34 mg/dLHigh7-21[facility] on above:Order Comment: Specimen Type: BLOOD SPECIMENOrdering Facility: [facility] Address:[address] [place], [place] [address]Performed By: #### 60459-7 ####[facility] LABCLIA [id number] [place], [place] [address]Xclbhhnh SerPl-mCncon [id number] [Mass/Vol] 90.3 ng/rQRstypn95.7-205.1[facility] on above:Order Comment: Specimen Type: BLOOD SPECIMENOrdering Facility: [facility] Address:[address] [place], [place] [address]Performed By: #### 2276- 4, 2132-9, 2284-8, 53635-5 ####[facility] LABCLIA [id number] [place] [facility] [place]50[place]WA[place] [id number] [place] OF AMERICAFolate SerPl-mCncon 60-45-4044Cwcqpy [Mass/Vol]5.4 ng/mLNormal>4.7CTriHealthComment on above:Order Comment: Specimen Type: BLOOD SPECIMENOrdering Facility: [facility] Address:[address] [place], [place] [address]Performed By: #### 2276-4, 2131-9, 2283-8, 41108-1 ####[facility] LABCLIA [id number] [place] [address] [place] OF AMERICAIron and Iron binding capacity panelon 32-22-4190Qenn [Mass/Vol]54 ug/zITxtesp47-894ZpyqrzkicTrinity Health System on above:Order Comment: Specimen Type: BLOOD SPECIMENOrdering Facility: [facility] Address:[address] [place], [place] [address]Performed By: #### 2276- 4, 2131-9, 8, 28260-5 ####[facility] LABCLIA [id number] [place] [address] [place] AMERICAIron binding capacity [Mass/Vol]362 ug/gCKswwtt056-066GocnzigazOhio Valley Hospital Comment on above:Order Comment: Specimen Type: BLOOD SPECIMENOrdering Facility: [facility] Address:[address] [place] [address] Performed By: #### 2276-4, 2131-9, 2283-8, 98014-5 ####[facility] LABCLIA [id number] [place] [address] [place] AMERICAIron/TIBC [Molar ratio]14.9 %Low15.0-57.0[facility] on above:Order Comment: Specimen Type: BLOOD SPECIMENOrdering Facility: [facility] Address:[address] [place], [place] [address]Performed By: #### 2276-4, 2131-9, 2283-8, 93398-3 ####[facility] LABCLIA [id number] [address] STATES OF [facility]ERT HOSPITALVit B12 SerPl-mCncon 88-15-3065Vrbzxydtq (Vitamin B12) [Mass/Vol]508 pg/lNOytfta903-5472TezvxcsyaHenry County Hospital on above: Order Comment: Specimen Type: BLOOD SPECIMENOrdering Facility: [facility] Address:[address] [place], [place] [address]Performed By: #### 2276- 4, 2132-9, 2284-8, 66006-1 ####[facility] LABCLIA [id number] [place] [address] [place] Follow-Upon 66-21-0604Hijcgo-[id number] Andrei Fish 1950 F Date Provider Department Center 05/31/2024 MASSIEL HENDERSON MP ORTHO MPORTHO No family history on file Level of Service:09548 [place] OFFICE/OUTPATIENT ESTABLISHED MOD MDM 30 MIN (GC) Reason for Visit and Comments: Follow-up [501632] Pain [136][facility] W Auto Differential panel (Bld)on 60-53-2026Mfqggykds (Bld) [#/Vol]10*3/uLNormal<0.11CHenry County Hospital on above:Order Comment: Specimen Type: BLOOD SPECIMENOrdering Facility: [facility] Address:[address] [place], [place] [address]Performed By: #### 20224-0 ####[facility] LABCLIA [id number] [place], [place] [address]Amiwjkapk/100 WBC (Bld)0.2 % NormalTrinity Health System on above:Order Comment: Specimen Type: BLOOD SPECIMENOrdering Facility: [facility] Address:[address] [place], [place] [address]Performed By: #### 77674-8 ####[facility] LABCLIA [id number] [place] [address] Differential cell count method Nom (Bld)AutoNormalCTriHealth Comment on above:Order Comment: Specimen Type: BLOOD SPECIMENOrdering Facility: [facility] Address:[address] [place] [address] Performed By: #### 33504-3 ####[facility]ITALJO[facility] ROBERTO [facility] LABCLIA [id number] [place], [place] [address]Pcjnqrvhqkw (Bld) [#/Vol]0.03 10*3/uLNormal<0.46[facility] on above:Order Comment: Specimen Type: BLOOD SPECIMENOrdering Facility: [facility] Address:[address] [place], [place] [address]Performed By: #### 22380-3 ####[facility] LABIA [id number] [place], [place] [address]Tovpmvkkdwe/100 WBC (Bld)0.7 %NormalTrinity Health System on above:Order Comment: Specimen Type: BLOOD SPECIMENOrdering Facility: [facility] Address:[address] [place], [place] [address]Performed By: #### 35660-9 ####[facility]ITALJOSE ROBERTO [facility] LABIA [id number] [place], [place] [address]Sryinaoqypd distribution width (RBC) [Ratio]14.6 %Gadntr06.5-15.0[facility] on above: Order Comment: Specimen Type: BLOOD SPECIMENOrdering Facility: [facility] Address:[address] [place], [place] [address]Performed By: #### 35667- 8 ####[facility] LABIA [id number] [place], [place] [address]Tqtnoilnvl (Bld) [Volume fraction]32.8 %Low36.0-46.0 [facility] on above:Order Comment: Specimen Type: BLOOD SPECIMENOrdering Facility: [facility] Address:[address] [place], [place] [address]Performed By: #### 71922-7 ####[facility] LABCLIA [id number] [place], [place] [address]Wgbolmevum (Bld) [Mass/Vol]10.5 g/dLLow11.5-15.5CHenry County Hospital on above:Order Comment: Specimen Type: BLOOD SPECIMENOrdering Facility: [facility] Address:[address] [place], [place] [address]Performed By: #### 47149- 8 ####[facility] LABCLIA [id number] [place], [place] [address]Dfddikqa granulocytes (Bld) [#/Vol]10*3/uLNormal<0.10 [facility] on above:Order Comment: Specimen Type: BLOOD SPECIMENOrdering Facility: [facility] Address:[address] [place], [place] [address]Performed By: #### 96552-3 ####[facility] LABCLIA [id number] [place], [place] [address]Nyjmznkp granulocytes/100 WBC (Bld)0.2 %[facility] on above: Order Comment: Specimen Type: BLOOD SPECIMENOrdering Facility: [facility] Address:[address] [place], [place] [address]Performed By: #### 94109- 8 ####[facility] LABCLIA [id number] [place], [place] [address]Spxgngoqdiw (Bld) [#/Vol]1.98 10*3/uLNormal1.00-4.00 [facility] on above:Order Comment: Specimen Type: BLOOD SPECIMENOrdering Facility: [facility] Address:[address] [place], [place] [address]Performed By: #### 15420-4 ####[facility] LABCLIA [id number] [place], [place] [address]Boqqfnuurtq/100 WBC (Bld)43.3 %NormalTrinity Health System on above:Order Comment: Specimen Type: BLOOD SPECIMENOrdering Facility: [facility] Address:[address] [place], [place] [address]Performed By: #### 52163-2 ####[facility] LABCLIA [id number] [place], [place] [address]PXS (RBC) [Entitic mass]31.7 lpHskqqg15.0-34.0[facility] on above:Order Comment: Specimen Type: BLOOD SPECIMENOrdering Facility: [facility] Address:[address] [place], [place] [address]Performed By: #### 88186-0 ####[facility] LABIA [id number] [place], [place] [address]PNUO (RBC) [Mass/Vol]32.0 g/wNScvvtk66.5-36.0[facility] on above: Order Comment: Specimen Type: BLOOD SPECIMENOrdering Facility: [facility] Address:[address] [place], [place] [address]Performed By: #### 07537- 8 ####[facility] LABIA [id number] [place], [place] [address]CUA (RBC) [Entitic vol]99.1 cOCcjlcm09.0-100.0[facility] on above:Order Comment: Specimen Type: BLOOD SPECIMENOrdering Facility: [facility] Address:[address] [place], [place] [address]Performed By: #### 89805-6 ####[facility] LABIA [id number] [place], [place] [address]Ktatuvzee (Bld) [#/Vol]0.20 10*3/uLNormal<0.87[facility] on above:Order Comment: Specimen Type: BLOOD SPECIMENOrdering Facility: [facility] Address:[address] [place], [place] [address]Performed By: #### 87257- 8 ####[facility]OS[facility]ITALJOSE ROBERTO [facility] LABCLIA [id number] [place], [place] [address]Xzhuslmes/100 WBC (Bld)4.4 %NormalTrinity Health System on above:Order Comment: Specimen Type: BLOOD SPECIMENOrdering Facility: [facility] Address:[address] [place], [place] [address]Performed By: #### 77066-2 ####[facility] LABCLIA [id number] [place], [place] [address]Gjrmnzfamoy (Bld) [#/Vol]2.34 10*3/uLNormal1.45-7.50[facility] on above:Order Comment: Specimen Type: BLOOD SPECIMENOrdering Facility: [facility] Address:[address] [place], [place] [address]Performed By: #### 72701-3 ####[facility] LABCLIA [id number] [place], [place] [address]Zrivhlsanzv/100 WBC (Bld)51.2 %NormalTrinity Health System on above:Order Comment: Specimen Type: BLOOD SPECIMENOrdering Facility: [facility] Address:[address] [place], [place] [address]Performed By: #### 52430-8 ####[facility] LABCLIA [id number] [place], [place] [address]Fovrjscwc RBC (Bld) [#/Vol] 10*3/uLNormal<0.01[facility] on above:Order Comment: Specimen Type: BLOOD SPECIMENOrdering Facility: [facility] Address:[address] [place], [place] [address]Performed By: #### 22532-3 ####[facility] LABCLIA [id number] [place], [place] [address]Zsxuopgze RBC/100 WBC (Bld) [Ratio]0.0 /100 WBCNormal Lau Clinic ClevelandComment on above:Order Comment: Specimen Type: BLOOD SPECIMENOrdering Facility: [facility] Address:[address] [place], [place] [address]Performed By: #### 72000-0 ####[facility]OSPITALJOSE ROBERTO [facility] LABCLIA [id number] [place], [place] [address]Lgrpkohc mean volume (Bld) [Entitic vol]9.5 fLNormal9.0-12.7CHenry County Hospital on above:Order Comment: Specimen Type: BLOOD SPECIMENOrdering Facility: [facility] Address:[address] [place] [address] Performed By: #### 61356-4 ####[facility] LABIA [id number] [place], [place] [address]Kydaddxzi (Bld) [#/Vol]157 10*3/lFXteptw604-900CoamhldiiTrinity Health System on above:Order Comment: Specimen Type: BLOOD SPECIMENOrdering Facility: [facility] Address:[address] [place], [place] [address]Performed By: #### 75242-7 ####CHEVYORJOSE ROBERTO [facility] LABCLIA [id number] [place], [place] [address]SIU (Bld) [#/Vol]3.31 10*6/uLLow3.90-5.20[facility] on above:Order Comment: Specimen Type: BLOOD SPECIMENOrdering Facility: [facility] Address:[address] [place], [place] [address]Performed By: #### 38847-8 ####[facility]ITALJO[facility] ROBERTO [facility] LABIA [id number] [place], [place] [address]MSY (Bld) [#/Vol]4.57 10*3/uL Normal3.70-11.00[facility] on above:Order Comment: Specimen Type: BLOOD SPECIMENOrdering Facility: [facility] Address:[address] [place], [place] [address]Performed By: #### 61451-5 ####[facility] LABCLIA [id number] [place] [address]MNWXNBXxk 55-15-1044XEECOLPPwkcqmAxpmjgkfv Clinic ClevelandCNOVSPon 56-76-4932SFPNRCDarkajJwvinsdwj Clinic ClevelandComprehensive metabolic 2000 panelon 06-11-8421Kkdjnmb [Mass/Vol]3.7 g/dLLow3.9-4.9CHenry County Hospital on above:Order Comment: Specimen Type: BLOOD SPECIMENOrdering Facility: [facility] Address:[address] [place], [place] [address]Performed By: #### 25903-0 ####[facility] LABCLIA [id number] LILLY BENNETTDEONTEPHOENIX CHILDREN'S HOSPITALMABELSAINT [place], [place] [address]CWS [Catalytic activity/Vol]74 U/QGpqxeu67-597IiosbhhbpTrinity Health System on above:Order Comment: Specimen Type: BLOOD SPECIMENOrdering Facility: [facility] Address:[address] [place], [place] [address]Performed By: #### 48709- 8 ####[facility] LABCLIA [id number] [facility] AGNESTROY REGIONAL MEDICAL CENTERIfeanyiSAINT G[place]RIEL, [place] [address]ADQ [Catalytic activity/Vol]13 U/LNormal7-38[facility] on above:Order Comment: Specimen Type: BLOOD SPECIMENOrdering Facility: [facility] Address:[address] [place], [place] [address]Performed By: #### 58860-0 ####[facility] LABCLIA [id number] [place], [place] [address]Emgek gap [Moles/Vol]8 mmol/LNormal8-15[facility] on above:Order Comment: Specimen Type: BLOOD SPECIMENOrdering Facility: [facility] Address:[address] [place], [place] [address]Performed By: #### 76396- 8 ####[facility] LABCLIA [id number] [facility]YR[facility] [place], [place] [address]KVA [Catalytic activity/Vol]20 U/SCtvhoo52-64LwtpnkhdeTrinity Health System on above:Order Comment: Specimen Type: BLOOD SPECIMENOrdering Facility: [facility] Address:[address] [place], [place] [address]Performed By: #### 96633-8 ####[facility] LABCLIA [id number] [place], [place] [address]Nnaakyzzr [Mass/Vol]0.5 mg/dLNormal0.2-1.3CHenry County Hospital on above:Order Comment: Specimen Type: BLOOD SPECIMENOrdering Facility: [facility] Address:[address] [place], [place] [address]Performed By: #### 43483- 8 ####[facility] LABCLIA [id number] [facility] [place], [place] [address]Wtttzgg [Mass/Vol]9.4 mg/dLNormal8.5-10.2CHenry County Hospital on above:Order Comment: Specimen Type: BLOOD SPECIMENOrdering Facility: [facility] Address:[address] [place], [place] [address]Performed By: #### 36947-1 ####[facility] LABCLIA [id number] [place], [place] [address]Nfbimaks [Moles/Vol]106 mmol/L Bugtbc25-260IiwkxtrrdTrinity Health System on above:Order Comment: Specimen Type: BLOOD SPECIMENOrdering Facility: [facility] Address:[address] [place], [place] [address]Performed By: #### 72825-5 ####[facility] LABCLIA [id number] [place] [address] CO2 [Moles/Vol]27 mmol/SJdgiij95-41KrhanihfsTrinity Health System on above: Order Comment: Specimen Type: BLOOD SPECIMENOrdering Facility: [facility] Address:[address] [place], [place] [address]Performed By: #### 30987- 8 ####[facility] LABCLIA [id number] [place], [place] [address]Skeousagqy [Mass/Vol]1.24 mg/dLHigh0.58-0.96[facility] on above:Order Comment: Specimen Type: BLOOD SPECIMENOrdering Facility: [facility] Address:[address] [place], [place] [address]Performed By: #### 21682-5 ####[facility] LABCLIA [id number] [place], [place] [address]Aqwafrzsbe and Glomerular filtration rate.predicted panel (S/P/Bld)46 mL/min/1.73m???Low>=60 [facility] on above:Order Comment: Specimen Type: BLOOD SPECIMENOrdering Facility: [facility] Address:[address] [place], [place] [address]Result Comment: Estimated Glomerular Filtration Rate (eGFR) is calculated using the 2020 CKD-EPI creatinine equation. This equation utilizes serum creatinine, sex, and age as parameters. The creatinine assay has traceable calibration to isotope dilution-mass spectrometry. Refer to KDIGO guidelines for clinical interpretation. In patients with unstable renal function, e.g. those with acute kidney injury, the eGFR may not accurately reflect actual GFR.Performed By: #### 80562-5 ####[facility] LABCLIA [id number] [place], [place] [address]Ycemyfx [Mass/Vol]118 mg/sAMtvg71-67WsbudzdulTrinity Health System on above:Order Comment: Specimen Type: BLOOD SPECIMENOrdering Facility: [facility] Address:[address] [place], [place] [address]Result Comment: The [place] Diabetes Association (ADA) provides guidance for cutoff values for fast ing glucose and random glucose. The ADA defines fasting as no caloric intake for at least 8 hours. Fasting plasma glucose results between 100 to 125 mg/dL indicate increased risk for diabetes (prediabetes).Fasting plasma glucose results greater than or equal to 126 mg/dL meet the criteria for diagnosis of diabetes. In the absence of unequivocal hyperglycemia, results should be confirmed by repeattesting. In a patient with classic symptoms of hyperglycemia or hyperglycemic crisis, random plasmaglucose results greater than or equal to 200 mg/dL meet the criteria for diagnosis of diabetes.Reference: Standards of Medical Care in Diabetes 2016, [place] Diabetes Association. Diabetes Care. 2016.39(Suppl 1).Performed By: #### 93902-7 ####[facility] LABCLIA [id number] [place], [place] [address]Kluovgnaq [Moles/Vol]4.8 mmol/LNormal3.7-5.1CHenry County Hospital on above: Order Comment: Specimen Type: BLOOD SPECIMENOrdering Facility: [facility] Address:[address] [place], [place] [address]Performed By: #### 11056- 8 ####[facility] LABCLIA [id number] [place], [place] [address]Ndsqfse [Mass/Vol]7.3 g/dLNormal6.3-8.0[facility] on above:Order Comment: Specimen Type: BLOOD SPECIMENOrdering Facility: [facility] Address:[address] [place], [place] [address]Performed By: #### 31122-7 ####[facility] LABIA [id number] [place], [place] [address]Yoscyp [Moles/Vol]141 mmol/L Iwhrrv160-515CppmrzpphTrinity Health System on above:Order Comment: Specimen Type: BLOOD SPECIMENOrdering Facility: [facility] Address:[address] [place], [place] [address]Performed By: #### 22456-4 ####[facility] LABIA [id number] [place] [address] Urea nitrogen [Mass/Vol]32 mg/dLHigh7-21[facility] on above:Order Comment: Specimen Type: BLOOD SPECIMENOrdering Facility: [facility] Address:[address] [place], [place] [address]Performed By: #### 66793-1 ####[facility] LABCLIA [id number] [place], [place] [address]Ejjgzilk SerPl-mCncon 69-33-1956Ttlhfdce [Mass/Vol] 104.0 ng/xYSyttly89.7-205.1CHenry County Hospital on above:Order Comment: Specimen Type: BLOOD SPECIMENOrdering Facility: [facility] Address:[address] [place], [place] [address]Performed By: #### 55073- 8, 9, 2275-10, 2284-02 ####[facility] LABCLIA [id number] [place] [address] [place] AMERICAFolate SerPl-mCncon 24-45-2146Oudoaq [Mass/Vol]5.1 ng/mLNormal>4.7CHenry County Hospital on above:Order Comment: Specimen Type: BLOOD SPECIMENOrdering Facility: [facility] Address:[address] [place], [place] [address]Performed By: #### 38689-9, 9, 2275-10, 2284-02 ####[facility] LABCLIA [id number] [place] [address] [place] AMERICAIron and Iron binding capacity panelon 79-21-9070Tpdp [Mass/Vol]74 ug/tPTyyigg09-053NqquidwifOhio Valley HospitalCommunson medical center on above:Order Comment: Specimen Type: BLOOD SPECIMENOrdering Facility: [facility] Address:[address] [place], [place] [address]Performed By: #### 61649- 8, 9, 2275-10, 2284-02 ####[facility] LABCLIA [id number] [place] [address] [place] AMERICAIron binding capacity [Mass/Vol]349 ug/wYHokrtl810-337TgpywvonxOhio Valley Hospital Comment on above:Order Comment: Specimen Type: BLOOD SPECIMENOrdering Facility: [facility] Address:[address] [place], [place] [address] Performed By: #### 47913-2, 9, 2275-10, 8 ####[facility] LABCLIA [id number] [place] [address] [place] AMERICAIron/TIBC [Molar ratio]21.2 %Jmjfyn92.0-57.0[facility] on above:Order Comment: Specimen Type: BLOOD SPECIMENOrdering Facility: [facility] Address:[address] [place], [place] [address]Performed By: #### 27551-1, 2132-03, 2275-10, 2284-02 ####[facility] LABCLIA [id number] [place] [address] [place] AMERICAVit B12 SerPl-mCncon 89-85-8509Nuynpxtpb (Vitamin B12) [Mass/Vol]488 pg/fLFrentp481-1122MhrourjytHenry County Hospital on above: Order Comment: Specimen Type: BLOOD SPECIMENOrdering Facility: [facility] Address:[address] [place], [place] [address]Performed By: #### 37112- 8, 9, 2275-10, 2284-02 ####[facility] LABCLIA [id number] [place] [address] [place] OF AMERICACT CHEST WO CONon 90-27-0231[place]uc[place] [address] [place] Scan Report Signed Patient: ANDREI FISH MR#: [id number] : 1950 Acct:[id number] Age/Sex: 73 / F ADM Date: 05/28/24 Loc: CT Attending Dr: Stephanie Dumont NP Ordering Physician: Stephanie Dumont NP Date of Service: 05/28/24 Procedure(s): CT chest wo con Accession Number(s): [id number] cc: Stephanie Dumont NP [place] [address] Patient Name: ANDREI FISH MRN: [facility]:[id number] date: 1950 Sex: F Assigned Patient Location: CT Current Patient Location: Accession/Order Number: [id number] Exam Date: 05/28/2024 11:02 Report Date: 05/29/2024 [...] help establish baseline. Electronically authenticated by: THA SALGUERO Date: 05/29/2024 06:00 Dictated By: Tha Salguero M.D. Signed By: 05/29/24602 DD/ 9 TD/TT: Marketing Services Rep:TYRONEadiologifeanyi, Radiologist, - 05/29/2024 [place] [address] CT Scan Report Signed Patient: ANDREI FISH MR#: [id number] : 1950 Acct:[id number] Age/Sex: 73 / F ADM Date: 05/28/24 Loc: CT Attending Dr: Stephanie Dumont NP Ordering Physician: Stephanie Dumont NP Date of Service: 05/28/24 Procedure(s): CT chest wo con Accession Number(s): [id number] cc: Stephanie Dumont NP [place] [address] Patient Name: ANDREI FIHS MRN: [facility]:[id number] date: 1950 Sex: F Assigned Patient Location: CT Current Patient Location: Accession/Order Number: [id number] Exam Date: 05/28/2024 11:02 Report Date: 05/29/2024 [...] help establish baseline. Electronically authenticated by: THA SALGUERO Date: 05/29/2024 06:00 Dictated By: Tha Salguero M.D. Signed By: 05/29/24 06 DD/ 06 TD/TT: Marketing Services Rep: [place] HealthcareRadiology Study observation (narrative)[facility] HealthcareCT CHEST WO CONOrdered By: Radiologist Radiology on 58-39-9889[facility] Work Phone: [phone] PROTEINon 05-21-2024 REACTIVE PROTEIN (MG/L) IN SER/PLAS14.7 mg/LHigh<=5.0UnUniversity Hospitals St. John Medical CenterComment on above:Result Comment: Testing performed using a new methodology, turbidimetry. Normal ranges have been updated. Old normal range was <8 mg/L. Performed By: #### [id number] #### [facility] (BEAKER) [address] [place], [place] [address]Qgezz [id number] Andrei Fish 1950 F Date Provider Department Center 05/21/2024 2244-[facility] MP LAB RESOURCE MP DRAW Medical Pavi No family history on fileNormalUniversCleveland Clinic Hillcrest HospitalOffice Visiton 44-41-2860Hyrqjh-up [id number] Andrei Fish 1950 F Date Provider Department Center 05/21/2024 499-[facility] MP ORTHO MPORTHO No family history on file Level of Service:88910 [place] OFFICE/OUTPATIENT ESTABLISHED LOW MDM 20 MIN Reason for Visit and Comments: New Patient [632] - Patient reports pain worse when walking, reports had tibia fx with repair in 2003 from , patient reports swelling and tenderness to read.NormalUnTriHealth McCullough-Hyde Memorial HospitalEDIMENTATION RATEon 56-73-0145CSZIAWEGMBTZI RATE, TWSZKHLBYAX99 mm/hrHigh<=20UnUniversity Hospitals St. John Medical CenterComment on above:Performed By: #### [id number] #### [facility] (BEAKER) [address] [place], [place] [address]UO Lumbar spine 2 or 3 Viewson 79-40-1929Utptelw Result: AP and lateral of lumbar spine [...] changes lumbar spine globally no acute bony process.[facility] HealthcareRadiology Study observation (narrative)[facility] Specialty HospitalHbA1c (Bld)on 25-79-3888Ukwkeik glucose Estimated from glycated hemoglobin (Bld) [Mass/Vol]134 mg/dLSt. Charles Hospitalment on above: eAG: (Estimated average glucose) is a calculated value from HgbA1c and is exhibit display representative of the average blood glucose level in the last 2-3 month period. HbA1c (Bld) [Mass fraction]6.3 %High4.3 - 5.6 %[facility] Clinic Avon HospitalComment on above: [place] Diabetes Association guidelines indicate that patients with HgbA1c in the range 5.7-6.4% are at increased risk for development of diabetes, and intervention by lifestyle modification may be beneficial. HgbA1c greater or equal to 6.5% is considered diagnostic of diabetes.Interpretation and review of laboratory resultsAbnormalCleveland W[facility]UM[facility] HospitalMAMM SCREENING BILATERAL W CADon [id number] SCREENING BILATERAL W CADMAMM SCREENING BILATERAL W CAD ANDREI FISH 1950 [id number] EXAM: MAMM SCREENING BILATERAL W CAD, 04/17/2024 [...] on 04/17/2024 10:45 AM 1 c MAMM [address] [place] [address] HospitalLon 77-45-7651EGqsjklpv: Received: 04/19/24 Status: ANGEL Alegre Num: [id number] Spec Type: Cytology Subm Dr: KYUNG Reece Tissues: A FNA SLIDES NOPATH (RT THYROID) Procedures: Cyto Int and Re, PAPSTN/5 Age/ Patient Sex Location Account Attending Physician Andrei Fish 73/F LABELL [id number] Tha Salguero MD SPEC NUM: [id number] RECD: 04/19/24 STATUS: ANGEL ALEGRE NUM: [id number] OMAR: 04/16/24 DR: KYUNG Reece ENTERED: 04/19/24 [facility] DR: Jocy,Lab Tha Salguero MD SPEC TYPE: Cytology DEPT: [facility] ENTERED BY: [id number] RECV BY: [id number] ORDERED: Cyto Int and Re, PAPSTN/5 ORDERED: Cyto Int and Re, PAPSTN/5 Pathological Diagnosis Right thyroid nodule, fine needle aspiration (Smear and ThinPrep): - Satisfactory for evaluation. - Few sheets of benign-appearing follicular cells in a background of macrophages, watery co lloid and blood consistent with benign follicular nodule/nodular goiter (Casper Category: II). - Negative for malignant cells. [...] vial stored at -20 microscopic examination. (MG/nh) Specimen: Received: 04/19/24 Status: ANGEL Alegre Num: [id number] Spec Type: Cytology Subm Dr: KYUNG Reece Tissues: A FNA SLIDES NOPATH (RT THYROID) Procedures: Cyto Int and Re, PAPSTN/5 Patient: Andrei Fish [id number] (Continued) Specimen: [id number] Received: 04/19/24 (Continued) Signed (signature on file) Nnamdi Woodall MD 04/30/24 1143 Specimen: [id number] Received: 04/19/24 Status: ANGEL Alegre Num: [id number] Spec Type: Cytology Subm Dr: KYUNG Reece Tissues: A FNA SLIDES NOPATH (RT THYROID) Procedures: Cyto Int and Re, PAPSTN/5 Patient: Andrei Fish [id number] (Continued) Specimen: [id number] Received: 04/19/24 (Continued) Microscopic Description Microscopic examination is performed. CPT Codes 39806, 31768 Specimen: [id number] Received: 04/19/24 Status: ANGEL Alegre Num: [id number] Spec Type: Cytology Subm Dr: Stephanie Dumont, STRAP CUTTING MACHINE OPERATOR-C Tissues: A FNA SLIDES NOPATH (RT THYROID) Procedures: Cyto Int and Re, PAPSTN/5 Patient: Andrei Fish [id number] (Continued) Signed (signature on file) Nnamdi Woodall MD 04/30/24 1143NormThe MetroHealth System GroupUS BIOPSY THYROIDon 88-96-2750[place] [address] Ultrasound Report Signed Patient: ANDREI FISH MR#: [id number] : 1950 Acct:[id number] Age/Sex: 73 / F ADM Date: 04/16/24 Loc: US Attending Dr: Stephanie Dumont NP Ordering Physician: Stephanie Dumont NP Date of Service: 04/16/24 Procedure(s): US biopsy thyroid Accession Number(s): [id number] cc: Stephanie Dumont NP [address] [address] Patient Name: ANDREI FISH MRN: [id number] date: 1950 Sex: F Assigned Patient Location: US Current Patient Location: Accession/Order Number: [id number] Exam Date: 04/16/2024 14:00 Report Date: 04/16/2024 [...] results are pending. Electronically authenticated by: THA SALGUERO Date: 04/16/2024 15:55 Dictated By: Tha Salguero M.D. Signed By: 04/16/24 1557 DD/ 1555 TD/TT: Marketing Services Rep:TBHRadiology, Radiologist, MD - 04/16/2024 [place] [address] Ultrasound Report Signed Patient: ANDREI FISH MR#: [id number] : 1950 Acct:[id number] Age/Sex: 73 / F ADM Date: 04/16/24 Loc: US Attending Dr: Stephanie Dumont NP Ordering Physician: Stephanie Duomnt NP Date of Service: 04/16/24 Procedure(s): US biopsy thyroid Accession Number(s): [id number] cc: Stephanie Dumont NP [address] [address] Patient Name: ANDREI FISH MRN: [id number] date: 1950 Sex: F Assigned Patient Location: US Current Patient Location: Accession/Order Number: [id number] Exam Date: 04/16/2024 14:00 Report Date: 04/16/2024 [...] results are pending. Electronically authenticated by: THA SALGUERO Date: 04/16/2024 15:55 Dictated By: Tha Salguero M.D. Signed By: 04/16/241556 DD/ 54 TD/TT: Marketing Services Rep: ISRAEL [facility] County HospitalRadiology Study observation (narrative)[facility]ty HospitalUS BIOPSY THYROIDOrdered By: Radiologist Radiology on 70-66-2891TFNS [employer] Work Phone: cBC AND AUTO DIFFon 14-00-4682UVHMLNZJ BASOPHIL0.0 X10E9/LNormal0.0-0.2PMiddletown HospitalComment on above:Performed By: #### 1987-5 CBCA, 19845-8 #### [facility] ([id number]) [address], [address] [place], [place] [address]TLBIHELS NEUTROPHIL2.7 X10E9/LNormal1.5-6.6B[facility]vue HospitalComment on above:Performed By: #### 1987-5 CBCKori, 06826-3 #### [facility] ([id number]) [address], [address] [place], [place] [address]Dmcuibknc/100 WBC (Bld)0.3 %NormalBellevue Hospital Comment on above:Performed By: #### 1988-5, CBCA, 24453-9 #### [facility] ([id number]) [address], [address] [place], [place] [address]Xtcgymmxoqt (Bld) [#/Vol]0.0 10*3/uLNormal0.0-0.4B[facility]vue HospitalComment on above:Performed By: #### 1987-11 CBCKori, 81479-7 #### [facility] ([id number]) [address], [address] [place], [place] [address]Nxrxpmpxpkp/100 WBC (Bld)0.9 %NormalProKnapp Medical Center Comment on above:Performed By: #### 1987-11 CBCKori, 46157-6 #### [facility] ([id number]) [address], [address] [place], [place] [address]Phvcrtpbbjn distribution width (RBC) [Ratio]15.9 %High11.5-15.0 [facility]vue HospitalComment on above:Performed By: #### 1987-11 CBCKori, 88982-6 #### [facility] ([id number]) [address], [address] [place], [place] [address]Simecjavfz (Bld) [Volume fraction]34.3 %Qps61-15LlbFhpfsxBellevue HospitalComment on above:Performed By: #### 1987-11 CBCKori, 22312-8 #### [facility] ([id number]) [address], [address] [place], [place] [address]Uyvrfvogul (Bld) [Mass/Vol]11.3 g/dLLow11.7-15.5PMiddletown HospitalComment on above:Performed By: #### 1987-11 CBCKori, 50952-6 #### [facility] ([id number]) [address], [address] [place], [place] [address]Ucnlykygubh (Bld) [#/Vol]2.1 10*3/uLNormal1.0-3.5PMiddletown HospitalComment on above:Performed By: #### 1987-11, CBCKori, 76676-3 #### [facility] ([id number]) [address], [address] [place] [address]Gkwzhrsvxmk/100 WBC (Bld)40.8 %NormalBellevue Hospital Comment on above:Performed By: #### 1987-11, CBCA, 95260-7 #### [facility] ([id number]) [address], [address] [place], [place] [address]VUH (RBC) [Entitic mass]31.8 gySngdxi95-84DwiFzylwcKnapp Medical CenterComment on above:Performed By: #### 1987-11, CBCA, 29066-0 #### [facility] ([id number]) [address], [address] [place], [place] [address]CJGQ (RBC) [Mass/Vol]32.8 g/fEKbccyr23-05SclRtxmutKnapp Medical CenterComment on above:Performed By: #### 1987-11, CBCA, 38235-3 #### [facility] ([id number]) [address], [address] [place] [address]WEM (RBC) [Entitic vol]97 dHDmtsvd55-499FwnJjobly [facility]remont HospitalComment on above:Performed By: #### 1987-11, CBCA, 96081-0 #### [facility] ([id number]) [address], [address] [place], [place] [address]Lbxmrrhfd (Bld) [#/Vol]0.2 10*3/uLNormal0-0.9Bellevue HospitalComment on above:Performed By: #### 1987-11, CBCA, 80749-9 #### [facility] ([id number]) [address], [address] [place] [address]Liiczoxao/100 WBC (Bld)3.9 %NormalBellevue Hospital Comment on above:Performed By: #### 1987-11, CBCA, 90938-2 #### [facility] ([id number]) [address], [address] [place], [place] [address]Mlfyptwwbut/100 WBC (Bld)54.1 %NormalBellevue Hospital Comment on above:Performed By: #### 1987-, CBCA, 49807-1 #### [facility] ([id number]) [address], [address] [place] [address]Aeezrqju mean volume (Bld) [Entitic vol]8.3 fLNormal7-12 [facility] HospitalComment on above:Performed By: #### 1987-11, CBCA, 19836-0 #### [facility] ([id number]) [address], [address] [place] [address]Oivxjconb (Bld) [#/Vol]208 10*3/uHLyqegi512-722FwnKyhzxj [facility]ont HospitalComment on above:Performed By: #### 1987-11, CBCKori, 09561-6 #### [facility] ([id number]) [address], [address] [place], [place] [address]HQN COUNT3.54 X10E12/LLow3.80-5.20[facility] Comment on above:Performed By: #### 1987-11, CBCA, 56671-9 #### [facility] ([id number]) [address], [address] [place], [place] [address]JJA (Bld) [#/Vol]5.1 10*3/uLNormal4.0-11.0Bellevue HospitalComment on above:Performed By: #### 1987-, CBCA, 74566-3 #### [facility] ([id number]) [address], [address] [place], [place] [address]LHK [Mass/Vol]on 4C REACTIVE PROTEIN1.2 mg/dLHigh 0.000-0.744PMiddletown HospitalComment on above:Performed By: #### 1988-5, CBCA, 22477-6 #### [facility] ([id number]) [address] [address] [place], [place] [address]DBF Photometric method (Bld) [Velocity]on 64-93-5943NVH, ERYTHROCYTE SEDIMENTATION RATE21 mm/hNormal0-30ProKnapp Medical CenterComment on above:Performed By: #### 1987-5, CBCA, 02986-5 #### [facility] ([id number]) [address] [facility] [facility] [address] [place], [place] [address]OBH A1C (GLYCO-HGB)on 88-99-4845Abpnqpm [Mass/Vol]134 mg/dL NormalProKnapp Medical CenterComment on above:Performed By: #### HALudmila, THYR #### [facility] ([id number]) [address] [address]HiE1t (Bld) [Mass fraction]6.3 %High4.4-5.6Bellevue HospitalComment on above:Result Comment: NOTE ADA Guidelines Result HgbA1c Normal : less than 5.7 % Prediabetes : 5.7 % to 6.4 % Diabetes : > 6.4 % Use with caution in patients with abnormal hemoglobin variants as the half-life of red blood cells and in vivo glycation rates are affected.Performed By: #### HA1C, THYR #### [facility] ([id number]) [address] [address] [place], [place] [address]BEARGOCQLRFU - ALBUMIN:CREATININE URINE RATIOon 04-04-2024 ALB/CREAT RATIO14.4 mg/g creatNormal0.0-30.0ProKnapp Medical CenterComment on above:Performed By: #### UARED #### [facility] ([id number]) [address], [address] [place], [place] [address]Xhmerfu DL <= 20 mg/L (U) [Mass/Vol]1.6 mg/dLNormal0.0-1.9 [facility] HospitalComment on above:Performed By: #### RED DENSON #### [facility] ([id number]) [address], [address] [place], [place] [address]PCFMP AYNWV653.21 mg/dLNormalProKnapp Medical CenterComment on above:Performed By: #### RED DENSON #### [facility] ([id number]) [address], [address] [place], [place] [address]MMWMUOK PROFILEon 07-47-1145Jhiu T4 [Mass/Vol]0.80 ng/dLNormal 0.61-1.60B[facility]vue HospitalComment on above:Performed By: #### SAMUEL, THYR #### [facility] ([id number]) [address], [address] [place], [place] [address]EVD4.29 uIU/mLLow0.49-4.67B[facility]vue HospitalComment on above:Performed By: #### SAMUEL, THYR #### [facility] ([id number]) [address], [address] [place], [place] [address]QUOSXVUNBAyp 30-28-6221Cvvunavzi Ql (U)NegativeNormalNEG [facility]vue HospitalComment on above:Performed By: #### JARETT, RED #### [facility] ([id number]) [address], [address] [place], [place] [address]CPLOY/HGBNegativeNormalNEGBellevue HospitalComment on above:Performed By: #### JARETT, RED #### [facility] ([id number]) [address], [address] [place], [place] [address]Hhgkj (U)YELLOWNormalYELLOWProKnapp Medical CenterComment on above:Performed By: #### RED DENSON #### [facility] ([id number]) [address], [address] [place], [place] [address]Ptmfzpi Ql (U)NegativeNormalNEGProKnapp Medical CenterComment on above:Performed By: #### RED DENSON #### [facility] ([id number]) [address], [address] [place], [place] [address]Cjtdfgn Ql (U)NegativeNormalNEGProKnapp Medical CenterComment on above:Performed By: #### RED DENSON #### [facility] ([id number]) [address] [facility], [address] [place], [place] [address]Cicrkdzwu esterase Test strip Ql (U)NegativeNormalNEGProKnapp Medical CenterComment on above:Performed By: #### RED DENSON #### [facility] ([id number]) [address] [facility], [address] [place], [place] [address]YMXTEYOJSKWQXOjgzjwkkCYNYCfdOhrzht [facility]ont HospitalComment on above:Performed By: #### RED DENSON #### [facility] ([id number]) [address], [address] [place], [place] [address]Nuslwzb Ql (U)NegativeNormalNEGProKnapp Medical CenterComment on above:Performed By: #### RED DENSON #### [facility] ([id number]) [address], [address] [place], [place] [address]oU (U)6.0 [pH]Normal5.0-8.5PMiddletown HospitalComment on above:Performed By: #### RED DENSON #### [facility] ([id number]) [address], [address] [place], [place] [address]Pdpiile Ql (U)TraceAbnormalNEGProKnapp Medical CenterComment on above:Performed By: #### RED DENSON #### [facility] ([id number]) [address], [address] [place], [place] [address]W.B.CELLS1 /hpfNormal0-5PMiddletown HospitalComment on above:Performed By: #### RED DENSON #### [facility] ([id number]) [address], [address] [place], [place] [address]Iuqkuygk gravity (U) [Rel density]1.206Hbqxsx9.003-1.035 [facility] Medical CenterComment on above:Performed By: #### RED DENSON #### [facility] ([id number]) [address], [address] [place], [place] [address]XPHSLMZS EPITHELIUM6 /hpfHigh0-5PEast [facility] on above:Performed By: #### RED DENSON #### [facility] ([id number]) [address], [address] [place], [place] [address]RKWACGNDTPYTACKbtaxrHEIGDYkqLobgbj [facility] Medical CenterComment on above:Performed By: #### RED DENSON #### [facility] ([id number]) [address], [address] [place], [place] [address]Xsntudgelgrm (U) [Mass/Vol]mg/dLNormal<1.1PMiddletown HospitalComment on above:Performed By: #### RED DENSON #### [facility] ([id number]) [address], [address] [place], [place] [address]U.B.CELLS2 /hpfNormal0-5PMiddletown HospitalComment on above:Performed By: #### RED DENSON #### [facility] ([id number]) [address], [address] [place], [place] [address]PC Thyroid glandon 66-19-73[address] [address] Ultrasound Report Signed Patient: ANDREI FISH MR#: [id number] : 1950 Acct:[id number] Age/Sex: 73 / F ADM Date: 04/03/24 Loc: US Attending Dr: Stephanie Dumont NP Ordering Physician: Stephanie Dumont NP Date of Service: 04/03/24 Procedure(s): US thyroid Accession Number(s): [id number] cc: Stephanie Dumont NP [place] [id number] Patient Name: ANDREI FISH MRN: [id number] date: 1950 Sex: F Assigned Patient Location: US Current Patient Location: Accession/Order Number: [id number] Exam Date: 04/03/2024 10:02 Report Date: 04/04/2024 [...] needle aspiration (FNA). Electronically authenticated by: THA SALGUERO Date: 04/04/2024 13:26 Dictated By: Tha Salguero M.D. Signed By: 04/04/24 1328 DD/ 1326 TD/TT: Marketing Services Rep:TBHRadiology, Radiologist, MD - 04/04/[address] [address] Ultrasound Report Signed Patient: ANDREI FISH MR#: [id number] : 1950 Acct:[id number] Age/Sex: 73 / F ADM Date: 04/03/24 Loc: US Attending Dr: Stephanie Dumont NP Ordering Physician: Stephanie Dumont NP Date of Service: 04/03/24 Procedure(s): US thyroid Accession Number(s): [id number] cc: Stephanie Dumont NP [place] [id number] Patient Name: ANDREI FISH MRN: [id number] date: 1950 Sex: F Assigned Patient Location: US Current Patient Location: Accession/Order Number: [id number] Exam Date: 04/03/2024 10:02 Report Date: 04/04/2024 [...] needle aspiration (FNA). Electronically authenticated by: THA SALGUERO Date: 04/04/2024 13:26 Dictated By: Tha Salguero M.D. Signed By: 04/04/24 1328 DD/ 1326 TD/TT: Marketing Services Rep: ISRAEL HealthcareRadiology Study observation (narrative)NOMS HealthcareUS Thyroid glandOrdered By: Radiologist Radiology on 52-81-2752[facility] Work Phone: Urinalysis, manual onlyon 22-72-8472Sauprmgok Ql (U) NegativeNegativeNOMS HealthcareColor (U)YELLOWYELLOWNOMS HealthcareEpithelial cells Auto (Urine sed) [#/Area]6HighNOMS HealthcareGlucose (U) [Mass/Vol] NegativeNegative mg/dLNOMS HealthcareHemoglobin Auto test strip Ql (U)Negative NegativeNOMS HealthcareInterpretation and review of laboratory resultsAbnormal NOMS HealthcareKetones (U) [Mass/Vol]NegativeNegative mg/dLNOMS Healthcare Leukocyte esterase Auto test strip Ql (U)NegativeNegativeNOMS HealthcareMucus Ql (Urine sed)PRESENTAbnormalNONENOMS HealthcareNitrite Auto test strip Ql (U) NegativeNegativeNOMS HealthcarepH (U)6.0 [pH]5.0 - 8.5NOMS HealthcareProtein (U) [Mass/Vol]TraceAbnormalNegative mg/dLNOMS HealthcareRBC Auto (Urine sed) [#/Area]1NOMS HealthcareSpecific gravity Refractometry automated (U) [Rel density]1.0171.003 - 1.035NOMS HealthcareTurbidity Ql (U)CLEARCLEARNOMS HealthcareUrobilinogen Qn (U)<1.1NINFNOMS HealthcareWBC Auto (Urine sed) [#/Area]2NOMS HealthcareComment on above:PERFORMED AT [facility] 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 Ordering Physician: Stephanie Dumont NP Date of Service: 03/22/24 Procedure(s): CA echo doppler complete Accession Number(s): [id number] cc: Stephanie Dumont NP Patient Name: ANDREI FISH MR#: [id number] : 1950 Exam Date: 03/22/2024 Ordering Doctor: [...] 4.88 mm[Hg], 4.78 mm[Hg] Right Atrium Right Atriu (more content not included)...TBHRadiology, Radiologist, - 03/22/[address] [address] Cardiology Report Signed Patient: ANDREI FISH MR#: [id number] : 1950 Acct:[id number] Age/Sex: 73 / F ADM Date: 03/22/24 Loc: CARD Attending Dr: Stephanie Dumont NP Ordering Physician: Stephanie Dumont NP Date of Service: 03/22/24 Procedure(s): CA echo doppler complete Accession Number(s): [id number] cc: Stephanie Dumont NP Patient Name: ANDREI FISH MR#: [id number] : 1950 Exam Date: 03/22/2024 Ordering Doctor: [...] Signed By: 03/22/24 1535 DD/ 1533 TD/TT: Marketing Services Rep: ISRAEL ObandoRadiology Study observation (narrative)ISRAEL ObandoCA ECHO DOPPLER COMPLETEOrdered By: Radiologist Radiology on 90-60-9073[facility] Work Phone: ct Internal auditory canal WO contraston 11-14-2023 Right temporal bone: The mastoid [...] Tiffani Villagomez 11/14/2023 3:18 PM Dictation workstation: [id number] By: Tiffani Villagomez, STUDY: CT IAC WO IV CONTRAST; 11/14/2023 3:03 pm INDICATION: Signs/Symptoms:cholesteatoma. COMPARISON: None. ACCESSION NUMBER(S): [id number] ORDERING CLINICIAN: SUSANNA GRAF TECHNIQUE: Noncontrast CT [...] visualized right maxillary sinus suggesting a chronic infectious/inflammatory process. There are presumed postsurgical changes of antrostomy and uncinectomy of the right maxillary sinus. There is mild mucosal thickening within the right maxillary sinus. Along the anterior wall of the right maxillary sinus there is a partially ossified lesion with surrounding calcification which may represent a retention cyst polyp. [facility] MMTiffani Swift MD - 11/14/2023 Interpreted By: Tiffani Villagomez, STUDY: CT IAC WO IV CONTRAST; 11/14/2023 3:03 pm INDICATION: Signs/Symptoms:cholesteatoma. COMPARISON: None. ACCESSION NUMBER(S): [id number] ORDERING CLINICIAN: SUSANNA GRAF TECHNIQUE: Noncontrast CT [...] visualized right maxillary sinus suggesting a chronic infectious/inflammatory process. There are presumed postsurgical changes of [...] Tiffani Villagomez 11/14/2023 3:18 PM Dictation workstation: [id number] [facility] Work Phone: Radiology Study observation (narrative)[facility] Work Phone: CT Internal auditory canal WO contrastOrdered By: Tiffani Villagomez on 72-85-4527EvpdtorllrLakeHealth Tri[facility] Work Phone: HMHP PTH, INTRAOPERATIVEon 90-33-0875THO, EDAWFY67 pg/mL15 - 65 pg/mLNOMS HealthcareComment on above:Performed at: - Lab[address] [id number] [employer]: Danilo Garrett PhD, Phone: [phone] CLINISYNCNOMS HealthcareALL MAGNESIUMon 87-07-8459Dvomkemds [Mass/Vol]2.1 mg/dL 1.8 - 2.4 mg/dLNOMS HealthcareALL RENAL FUNCTION PANELon 48-90-3804Kcngtpt [Mass/Vol]3.1 g/dLLow3.4 - 5.0 g/dLSelect Specialty HospitalAnion gap [Moles/Vol]11.9 mmol/LNOMS HealthcareCalcium [Mass/Vol]8.6 mg/dL8.5 - 10.1 mg/dLSelect Specialty Hospital Chloride [Moles/Vol]102 mmol/L98 - 107 mmol/LNOMS HealthcareCO2 [Moles/Vol]27.5 mmol/L21.0 - 32.0 mmol/LNOMS HealthcareCreatinine [Mass/Vol]1.09 mg/dLHigh0.55 - 1.02 mg/dLSelect Specialty HospitalGFR/1.73 sq M.predicted CKD-EPI (S/P/Bld) [Vol rate/Area]6060 - PINFNOKansas City VA Medical CenterGlucose [Mass/Vol]92 mg/dL74 - 106 mg/dLSelect Specialty HospitalInterpretation and review of laboratory resultsAbnormalNOMN HealthcarePhosphate [Mass/Vol]3.0 mg/dL2.6 - 4.7 mg/dLSelect Specialty HospitalPotassium [Moles/Vol]4.4 mmol/L3.5 - 5.1 mmol/LNOMS [facility] County HospitalSodium [Moles/Vol]137 mmol/L 136 - 145 mmol/LNOMS [facility] HospitalTBH EGFR-NON AF ABOOTFBQ72Vsd51 - PINFNOKansas City VA Medical CenterUrea nitrogen [Mass/Vol]26.0 mg/dLHigh7.0 - 18.0 mg/dLSelect Specialty Hospital Urea nitrogen/Creatinine [Mass ratio]23.9 mg/mgSelect Specialty HospitalALL URIC ACIDon 56-99-7062Ednxm [Mass/Vol]5.8 mg/dL2.6 - 6.0 mg/dLSelect Specialty HospitalCCF FERRITINon 00-27-3834Opxhnjhr [Mass/Vol]80.0 ng/mL8.0 - 252.0 ng/mLNSaint Luke's East Hospital CBC WITH PLATELET NO DIFFERENTIALon 22-60-5400Hqmcnlbijwc distribution width (RBC) [Ratio]14.1 %11.0 - 15.0 %[facility] HealthcareHematocrit (Bld) [Volume fraction]33.1 %Low36.0 - 48.0 %NOM HealthcareHemoglobin (Bld) [Mass/Vol]10.2 g/dLLow12.0 - 16.0 g/dLBEAR RIVER VALLEY HOSPITAL HealthcareInterpretation and review of laboratory resultsAbnormal [facility] (RBC) [Entitic mass]31.4 pg26.7 - 34.0 pgProgress West HospitalHC (RBC) [Mass/Vol]30.8 g/dL29.9 - 35.2 g/dLProgress West HospitalV (RBC) [Entitic vol] 101.8 jRVdlt01.0 - 99.0 fLSelect Specialty HospitalPlatelet mean volume (Bld) [Entitic vol]9.6 fL9.5 - 13.5 fLSSM [facility] EUQ382VnaYUNOSSM [facility] RBC3.25Low [facility] WBC5.1NOMS [facility] HospitalCLINISYNFormerly [facility] URINALYSIS, WITH MICROSCOPICon [id number] URINETRACEAbnormalNONE SEEN #/HPFSelect Specialty HospitalBILIRUBIN URINENegativeNEGATIVESelect Specialty HospitalBLOOD URINETRACE-I NEGATIVEBEAR RIVER VALLEY [facility] HealthcareClarity (U)CLEARCLEARBEAR [facility]IVER [facility]LEY [facility] HealthcareColor (U)LT. YELLOW YELLOWSelect Specialty HospitalGLUCOSE URINE UANegativeNEGATIVE mg/dLSelect Specialty Hospital Interpretation and review of laboratory resultsAbnormalBEAR RIVER VALLEY [facility] HealthcareKetones Ql (U)NegativeNEGATIVE mg/dLSelect Specialty HospitalLeukocyte esterase Test strip Ql (U) NegativeNEGATIVESelect Specialty HospitalMUCUS URINENONE SEENNONE SEENSelect Specialty Hospital NITRITE URINENegativeNEGATIVEBEAR RIVER VALLEY [facility] HealthcarepH (U)5.5 [pH]5.0 - 9.0NOMN HealthcarePROTEIN URINENegativeNEG/TRACE mg/dLSelect Specialty HospitalSPECIFIC GRAVITY URINE1.0101.005 - 1.025NOKansas City VA Medical CenterSQUAMOUS EPITHELIAL CELL URINEFEWAbnormal NONE/RARE #/LPFSSM [facility] RBC0-2NOMS [facility] WBCNONE SEENNONE SEEN #/HPFSelect Specialty HospitalUROBILINOGEN URINE0.2 EU/dL0.2 - 1.0 EU/dLSelect Specialty Hospital CLINISYNCBE[facility] RIVER VALLEY [facility] HealthcareMETRO IRON AND TIBCon 96-59-4953WBT IRON71.0 ug/dL50.0 - 170.0 ug/dLSSM [facility] PERCENT IRON DVDWVTLDBV93.4 %NOMS HealthcareTBH TOTAL IRON BINDING BZJJRYKU426.0 ug/dL250.0 - 450.0 ug/dLNOMN Healthcare CLINISYNCBEAR RIVER VALLEY [facility] HealthcareNo Panel Informationon 11-12-9204RLTHNWAKCLILG HealthcareCLINISYNTrident Medical CenterTB URINE T PROTEIN CREAT RATIOon 09-11-2023 CREATININE URINE AQZNHD48.05 mg/dL20.00 - 300.00 mg/dLNOMN HealthcarePROTEIN CREATININE RATIO URINE0.23NOMN HealthcareTOTAL PROTEIN URINE RANDOM<6.0NINF - 11.9 mg/dLNOKansas City VA Medical CenterCLINISPeninsula Hospital, [place], operated by Covenant HealthTB VITAMIN D 25 OHon 89-86-1019YIMWDZK D27.9 ng/mLNHILLCREST MEDICAL CENTER – [facility]UL[place] HealthcareComment on above:<20 ng/mL Vit D deficient 20-<30 ng/mL Vit D insufficient 30-100 ng/mL Vit D sufficient >100 ng/mL Potential Toxicity US RENAL BIon 68-21-0416[place]mx[place] [address] Ultrasound Report Signed Patient: ANDREI FISH MR#: [id number] : 1950 Acct:[id number] Age/Sex: 72 / F ADM Date: 09/11/23 Loc: US Attending Dr: GILSON ARRIOLA Ordering Physician: GILSON ARRIOLA Date of Service: 09/11/23 Procedure(s): US renal BI Accession Number(s): [id number] cc: Shaikh Catrina Biswas; GILSON ARRIOLA [place] [id number] Patient Name: ANDREI FISH MRN: [id number] date: 1950 Sex: F Assigned Patient Location: US Current Patient Location: US Accession/Order Number: [id number] Exam Date: 09/11/2023 11:30 Report Date: 09/11/2023 12:18 At the request of: GILSON ARRIOLA Procedure: US renal BI EXAMINATION: US [...] renal cortical cysts Electronically authenticated by: SAMMIE TYSON Date: 09/11/2023 12:18 Dictated By: Sammie Tyson M.D. Signed By: 09/11/23 1221 DD/ 1218 TD/TT: Marketing Services Rep:TBHRadiology, Radiologist, - 09/11/2023 [place] [address] Ultrasound Report Signed Patient: ANDREI FISH MR#: [id number] : 1950 Acct:[id number] Age/Sex: 72 / F ADM Date: 09/11/23 Loc: US Attending Dr: GILSON ARRIOLA Ordering Physician: GILSON ARRIOLA Date of Service: 09/11/23 Procedure(s): US renal BI Accession Number(s): [id number] cc: Shaikh Catrina Biswas; GILSON ARRIOLA [address] [address] Patient Name: ANDREI FISH MRN: [id number] date: 1950 Sex: F Assigned Patient Location: US Current Patient Location: US Accession/Order Number: [id number] Exam Date: 09/11/2023 11:30 Report Date: 09/11/2023 12:18 At the request of: GILSON ARRIOLA Procedure: US renal BI EXAMINATION: US [...] renal cortical cysts Electronically authenticated by: SAMMIE TYSON Date: 09/11/2023 12:18 Dictated By: Sammie Tyson M.D. Signed By: 09/11/23 1221 DD/ 1218 TD/TT: Marketing Services Rep: Select Specialty HospitalRadiology Study observation (narrative)[facility] L[employer] TechnologiesUS RENAL BI Ordered By: Radiologist Radiology on 67-59-5012FZDU [employer] Work Phone: auditory function testson 33-12-2436Hbdmg Ear: Mild sensorineural hearing loss from 250 Hz - 500 Hz. 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 Severe mixed hearing loss above 3K Hz [facility] HealthcareDipstick & Microscopicon 68-85-4920Uspoowqt & MicroscopicNorth [employer] Other Dipstick and Microscopicon 81-09-1808Rrnogshyuu (U) ClearNormalClearThe [facility] Physician GroupComment on above:Order Comment: Reason for Exam HTN (hypertension);Lupus;Chronic ITP (idiopathic thrombocyto Name Collection Type:: Clean-Voided MidstreamPerformed By: #### ADDONUAPLUS #### [place] [id number] USABacteria,UrineNone SeenNormalNone SeenThe [facility] Health Physician GroupComment on above:Order Comment: Reason for Exam HTN (hypertension);Lupus;Chronic ITP (idiopathic thrombocyto Name Collection Type:: Clean-Voided MidstreamPerformed By: #### ADDONUAPLUS #### [place] [address] USABilirubin,UrineNegativeNormalNegativeThe [facility] Physician GroupComment on above:Order Comment: Reason for Exam HTN (hypertension);Lupus;Chronic ITP (idiopathic thrombocyto Name Collection Type:: Clean-Voided MidstreamPerformed By: #### ADDONUAPLUS #### [place] [address] USAColor (U)YellowNormalYellowAdventhealth New Smyrna Beach Physician Group Comment on above:Order Comment: Reason for Exam HTN (hypertension);Lupus;Chronic ITP (idiopathic thrombocyto Name Collection Type:: Clean-Voided MidstreamPerformed By: #### ADDONUAPLUS #### [place] [address] USAGlucose Ql (U)NormalNormalNormalThe [facility] Physician GroupComment on above:Order Comment: Reason for Exam HTN (hypertension);Lupus;Chronic ITP (idiopathic thrombocyto Name Collection Type:: Clean-Voided MidstreamPerformed By: #### ADDONUAPLUS #### [place] [address] USAHyaline Casts,Vwpoe5-2Boiqnu3-1Oeh [facility] Physician GroupComment on above:Order Comment: Reason for Exam HTN (hypertension);Lupus;Chronic ITP (idiopathic thrombocyto Name Collection Type:: Clean-Voided MidstreamResult Comment: PERFORMED BY: [place] [address] PATHOLOGIST CYBER SECURITY SYSTEMS ENGINEER IVORY BORRERO M.D.Performed By: #### ADDONUAPLUS #### [place] [address] USAKetones Ql (U)NegativeNormalNegativeAdventhealth New Smyrna Beach Physician GroupComment on above:Order Comment: Reason for Exam HTN (hypertension);Lupus;Chronic ITP (idiopathic thrombocyto Name Collection Type:: Clean-Voided MidstreamPerformed By: #### ADDONUAPLUS #### [place] [address] USALeukocyte esterase Test strip Ql (U)NegativeNormalNegative The [facility] Health Physician GroupComment on above:Order Comment: Reason for Exam HTN (hypertension);Lupus;Chronic ITP (idiopathic thrombocyto Name Collection Type:: Clean-Voided MidstreamPerformed By: #### ADDONUAPLUS #### [place] [address] USANitrite,UrineNegativeNormalNegativeThe [facility] Physician GroupComment on above:Order Comment: Reason for Exam HTN (hypertension);Lupus;Chronic ITP (idiopathic thrombocyto Name Collection Type:: Clean-Voided MidstreamPerformed By: #### ADDONUAPLUS #### [place] [address] USAOccult Blood,UrineNegativeNormalNegativeThe [facility] Physician GroupComment on above:Order Comment: Reason for Exam HTN (hypertension);Lupus;Chronic ITP (idiopathic thrombocyto Name Collection Type:: Clean-Voided MidstreamPerformed By: #### ADDONUAPLUS #### [place] [address] USApH (U)5.5 [pH]Normal5.0-9.0The [facility] Comment on above:Order Comment: Reason for Exam HTN (hypertension);Lupus;Chronic ITP (idiopathic thrombocyto Name Collection Type:: Clean-Voided MidstreamPerformed By: #### ADDONUAPLUS #### [place] [address] USAProtein,UrineNegativeNormalNegativeThe [facility] Physician GroupComment on above:Order Comment: Reason for Exam HTN (hypertension);Lupus;Chronic ITP (idiopathic thrombocyto Name Collection Type:: Clean-Voided MidstreamPerformed By: #### ADDONUAPLUS #### [place] [address] USARBC,Ykbnr3-0Zneaum1-5Tbl [facility] Physician GroupComment on above:Order Comment: Reason for Exam HTN (hypertension);Lupus;Chronic ITP (idiopathic thrombocyto Name Collection Type:: Clean-Voided MidstreamPerformed By: #### ADDONUAPLUS #### [place] [address] USASpecificy Bogata,Urine1.503Dnnaig0.001-1.030The [facility] Physician GroupComment on above:Order Comment: Reason for Exam HTN (hypertension);Lupus;Chronic ITP (idiopathic thrombocyto Name Collection Type:: Clean-Voided MidstreamPerformed By: #### ADDONUAPLUS #### [place] [address] USASquamous Epithelial Cell,Ozmcc7-0Gblo1-6Dqh [facility] Physician GroupComment on above:Order Comment: Reason for Exam HTN (hypertension);Lupus;Chronic ITP (idiopathic thrombocyto Name Collection Type:: Clean-Voided MidstreamPerformed By: #### ADDONUAPLUS #### [place] [address] USAUrobilinogen,UrineNormalNormalNormalThe [facility] Physician GroupComment on above:Order Comment: Reason for Exam HTN (hypertension);Lupus;Chronic ITP (idiopathic thrombocyto Name Collection Type:: Clean-Voided MidstreamPerformed By: #### ADDONUAPLUS #### [place] [address] USAWBC LM.HPF (Urine sed) [#/Area]0 /[HPF]Normal0-4The [facility] Physician GroupComment on above:Order Comment: Reason for Exam HTN (hypertension);Lupus;Chronic ITP (idiopathic thrombocyto Name Collection Type:: Clean-Voided MidstreamPerformed By: #### ADDONUAPLUS #### [place] [address] USAFerritinon 82-91-9870Uylxtopu [Mass/Vol]51.8181153 ng/mL Velvda86.0-306.8 ng/mLNsaint francis medical center EcoErid[employer] Other Ferritin [Mass/Vol]51.6 ng/dOGytceu34.0-306.8The [facility] Physician GroupComment on above:Order Comment: Reason for Exam HTN (hypertension);Lupus;Chronic ITP (idiopathic thrombocytoPerformed By: #### TRAN, PROCRERAT, PTH, URIC, CBCNO, RENAL, MG, [id number] #### [facility] [address] [place] [address] USAHemogram CBC Without Diffon 47-50-7921Wxwpegffbyx distribution width (RBC) [Ratio]15.200 %Dobbna35.9-15.3 %[employer] Other Hematocrit (Bld) [Volume fraction]32.300 %Low34.0-46.4 %[employer] Other Hemoglobin (Bld) [Mass/Vol]10.884789 g/dLLow11.8-15.4 g/dLNoPhotoways Other MCH (RBC) [Entitic mass]31.8000 zaFwvgsz30.7-34.3 pg [employer] Other MCV (RBC) [Entitic vol]96.6000 oBGtwelm23-336 fLPrecipio Other Platelet mean volume (Bld) [Entitic vol]8.3000 fL Normal6.3-10.7 fLPrecipio Other WBC (Bld) [#/Vol]4.709823079 10*3/uLNormal3.8-11.6 10*3/uLPrecipio Other Hemogram CBC Without Diff32.9 g/eSLiiqsu39.0-35.0 g/dL [employer] Other Erythrocyte distribution width (RBC) [Ratio]15.2 % Snugkz19.9-15.3The [facility] Physician GroupComment on above:Order Comment: Reason for Exam HTN (hypertension);Lupus;Chronic ITP (idiopathic thrombocytoPerformed By: #### TRAN, PROCRERAT, PTH, URIC, CBCNO, RENAL, MG, [id number] #### [facility] [address] [place] [address] USAHematocrit (Bld) [Volume fraction]32.3 %Low34.0-46.4The [facility] Physician GroupComment on above:Order Comment: Reason for Exam HTN (hypertension);Lupus;Chronic ITP (idiopathic thrombocytoPerformed By: #### TRAN, PROCRERAT, PTH, URIC, CBCNO, RENAL, MG, [id number] #### [place] [address] USAHemoglobin (Bld) [Mass/Vol]10.6 g/dLLow11.8-15.4The [facility] Physician GroupComment on above:Order Comment: Reason for Exam HTN (hypertension);Lupus;Chronic ITP (idiopathic thrombocytoPerformed By: #### TRAN, PROCRERAT, PTH, URIC, CBCNO, RENAL, MG, [id number] #### [address]H (RBC) [Entitic mass]31.8 ncSuqame84.7-34.3The [facility] Physician GroupComment on above:Order Comment: Reason for Exam HTN (hypertension);Lupus;Chronic ITP (idiopathic thrombocytoPerformed By: #### TRAN, PROCRERAT, PTH, URIC, CBCNO, RENAL, MG, [id number] #### [address] (RBC) [Entitic vol]96.6 rCGhgzzm71-406Mqo [facility] Physician GroupComment on above:Order Comment: Reason for Exam HTN (hypertension);Lupus;Chronic ITP (idiopathic thrombocytoPerformed By: #### TRAN, PROCRERAT, PTH, URIC, CBCNO, RENAL, MG, [id number] #### [place] [address] USAMean Corpuscular HGB Conc32.9 g/jPRfiiud40.0-35.0The [facility] Physician GroupComment on above:Order Comment: Reason for Exam HTN (hypertension);Lupus;Chronic ITP (idiopathic thrombocytoPerformed By: #### TRAN, PROCRERAT, PTH, URIC, CBCNO, RENAL, MG, [id number] #### [facility] [address] [place] [address] USAPlatelet mean volume (Bld) [Entitic vol]8.3 fLNormal 6.3-10.7The [facility] Physician GroupComment on above:Order Comment: Reason for Exam HTN (hypertension);Lupus;Chronic ITP (idiopathic thrombocytoResult Comment: PERFORMED BY: [place] [address] PATHOLOGIST CYBER SECURITY SYSTEMS ENGINEER IVORY BORRERO M.D.Performed By: #### TRAN, PROCRERAT, PTH, URIC, CBCNO, RENAL, MG, [id number] #### [place] [address] USAPlatelets (Bld) [#/Vol]161 10*3/nGYawgzb188-513Qdhdm [employer] Other Comment on above:Order Comment: Reason for Exam HTN (hypertension);Lupus;Chronic ITP (idiopathic thrombocytoPerformed By: #### TRAN, PROCRERAT, PTH, URIC, CBCNO, RENAL, MG, [id number] #### [place] [id number] USARBC (Bld) [#/Vol]3.34 10*6/uLLow3.60-5.00Nosaint luke's hospital [employer] Other Comment on above:Order Comment: Reason for Exam HTN (hypertension);Lupus;Chronic ITP (idiopathic thrombocytoPerformed By: #### TRAN, PROCRERAT, PTH, URIC, CBCNO, RENAL, MG, [id number] #### [place] [address] USAWBC (Bld) [#/Vol]4.7 10*3/uLNormal3.8-11.6The [facility] Physician GroupComment on above:Order Comment: Reason for Exam HTN (hypertension);Lupus;Chronic ITP (idiopathic thrombocytoPerformed By: #### TRAN, PROCRERAT, PTH, URIC, CBCNO, RENAL, MG, [id number] #### [facility] [address] [place] [address] USAMagnesiumon 48-34-2134Kogoatzon [Mass/Vol]2.7232356 mg/dL Normal1.9-2.7 mg/dLNosaint luke's hospital [employer] Other Magnesium [Mass/Vol]2.5 mg/dLNormal1.9-2.7The [facility] Physician GroupComment on above:Order Comment: Reason for Exam HTN (hypertension);Lupus;Chronic ITP (idiopathic thrombocytoPerformed By: #### TRAN, PROCRERAT, PTH, URIC, CBCNO, RENAL, MG, [id number] #### [facility] [address] [place] [address] USAParathyroid Hormone Intacton 92-25-3268Jaruyvsmwgr Hormone Tfigzw55.9 pg/pMTypyth64-72 pg/mLNorth [employer] Other Parathyroid Hormone Fvuxif81.9 pg/lMDzlmka55-47Zrf [facility] Physician GroupComment on above:Order Comment: Reason for Exam HTN (hypertension);Lupus;Chronic ITP (idiopathic thrombocytoResult Comment: PERFORMED BY: [place] [id number] PATHOLOGIST CYBER SECURITY SYSTEMS ENGINEER IVORY BORRERO M.D.Performed By: #### TRAN, PROCRERAT, PTH, URIC, CBCNO, RENAL, MG, [id number] #### [facility] [address] [place] [address] USAProtein Creat Ratio Ur Randomon 37-10-8688Haqmvab Test strip detection limit <= 20 mg/L (U) [Mass/Vol]9 mg/dLNormal0-9 mg/dLNosaint luke's hospital [employer] Other Protein Creat Ratio Ur Fgqdqy22.0 mg/dJQelc48.0-20.0 mg/dLNosaint luke's hospital [employer] Other Protein Creat Ratio Ur Bqscdc78 mg/g{Cre}Normal0-200 mg/g{Cre}P[employer] Other Creatinine, Urine (Random)96.0 mg/kRHgvf56.0-20.0The [facility] Physician GroupComment on above:Order Comment: Reason for Exam HTN (hypertension);Lupus;Chronic ITP (idiopathic thrombocytoPerformed By: #### TRAN, PROCRERAT, PTH, URIC, CBCNO, RENAL, MG, [id number] #### [facility] [address] [place] [address] USAProtein (U) [Mass/Vol]9 mg/dLNormal0-9The [facility] Physician GroupComment on above:Order Comment: Reason for Exam HTN (hypertension);Lupus;Chronic ITP (idiopathic thrombocytoPerformed By: #### TRAN, PROCRERAT, PTH, URIC, CBCNO, RENAL, MG, [id number] #### [facility] [address] [place] [id number] USAUrine Protein/Creatinine Ratio94 mg/g{Cre}Normal0-200The [facility] Physician GroupComment on above:Order Comment: Reason for Exam HTN (hypertension);Lupus;Chronic ITP (idiopathic thrombocytoResult Comment: PERFORMED BY: [place] [address] PATHOLOGIST CYBER SECURITY SYSTEMS ENGINEER IVORY BORRERO M.D.Performed By: #### TRAN, PROCRERAT, PTH, URIC, CBCNO, RENAL, MG, [id number] #### [place] [address] USARenal Function Panelon 43-79-9951Rrgjlcd [Mass/Vol] 3.107867 g/dLNormal3.5-5.7 g/dLNosaint luke's hospital [employer] Other Calcium [Mass/Vol]9.6955853 mg/dLNormal8.6-10.3 mg/dL [employer] Other CO2 [Moles/Vol]26.87155300 mmol/ORmcdxi37.0-31.0 mmol/LNsaint francis medical center [employer] Other Creatinine [Mass/Vol]1.08504512 mg/dLNormal0.60-1.20 mg/dLNosaint luke's hospital [employer] Other Phosphate [Mass/Vol]3.1980110 mg/dLNormal2.5-4.5 mg/dL [facility] [employer] Other Potassium [Moles/Vol]4.69287370 mmol/LNormal3.5-5.1 mmol/LNorth Parkland Health Center [employer] Other Albumin [Mass/Vol]3.7 g/dLNormal3.5-5.7The [facility] Physician GroupComment on above:Order Comment: Reason for Exam HTN (hypertension);Lupus;Chronic ITP (idiopathic thrombocytoPerformed By: #### TRAN, PROCRERAT, PTH, URIC, CBCNO, RENAL, MG, [id number] #### [facility] [address] [place] [id number] USAAnion gap [Moles/Vol]10.5 mmol/LNormal6.0-15.0The [facility] Physician GroupComment on above:Order Comment: Reason for Exam HTN (hypertension);Lupus;Chronic ITP (idiopathic thrombocytoPerformed By: #### TRAN, PROCRERAT, PTH, URIC, CBCNO, RENAL, MG, [id number] #### [facility] [address] [place] [address] USACalcium [Mass/Vol]9.2 mg/dLNormal8.6-10.3The [facility] Physician GroupComment on above:Order Comment: Reason for Exam HTN (hypertension);Lupus;Chronic ITP (idiopathic thrombocytoPerformed By: #### TRAN, PROCRERAT, PTH, URIC, CBCNO, RENAL, MG, [id number] #### [facility] [address] [place] [address] USAChloride [Moles/Vol]108 mmol/XUqnq26-185Rboer [employer] Other Comment on above:Order Comment: Reason for Exam HTN (hypertension);Lupus;Chronic ITP (idiopathic thrombocytoPerformed By: #### TRAN, PROCRERAT, PTH, URIC, CBCNO, RENAL, MG, [id number] #### [facility] [address] [place] [address] USACO2 [Moles/Vol]26.1 mmol/QNqrqla29.0-31.0The [facility] Physician GroupComment on above:Order Comment: Reason for Exam HTN (hypertension);Lupus;Chronic ITP (idiopathic thrombocytoPerformed By: #### TRAN, PROCRERAT, PTH, URIC, CBCNO, RENAL, MG, [id number] #### [facility] [address] [place] [address] USACreatinine [Mass/Vol]1.13 mg/dLNormal0.60-1.20The [facility] Physician GroupComment on above:Order Comment: Reason for Exam HTN (hypertension);Lupus;Chronic ITP (idiopathic thrombocytoPerformed By: #### TRAN, PROCRERAT, PTH, URIC, CBCNO, RENAL, MG, [id number] #### [facility] [address] [place] [address] USAGFR/1.73 sq M.predicted MDRD (S/P/Bld) [Vol rate/Area] 51.692 mL/min/{1.73_m2}NormalHunt Valley [employer] Other Comment on above:Order Comment: Reason for Exam HTN (hypertension);Lupus;Chronic ITP (idiopathic thrombocytoPerformed By: #### TRAN, PROCRERAT, PTH, URIC, CBCNO, RENAL, MG, [id number] #### [facility] [address] [place] [address] USAGlucose [Mass/Vol]116 mg/dDSwkw09-279Pfonb [employer] Other Comment on above:Order Comment: Reason for Exam HTN (hypertension);Lupus;Chronic ITP (idiopathic thrombocytoResult Comment: Random Glucose Reference Range is dependent on time and content of last meal. Glucose of more than 200 mg/dL in a nonstressed, ambulatory subject supports the diagnosis of Diabetes Mellitus. ADA recommended reference rangePerformed By: #### TRAN, PROCRERAT, PTH, URIC, CBCNO, RENAL, MG, [id number] #### [facility] [address] [place] [address] USAPhosphate [Mass/Vol]3.1 mg/dLNormal2.5-4.5The [facility] Physician GroupComment on above:Order Comment: Reason for Exam HTN (hypertension);Lupus;Chronic ITP (idiopathic thrombocytoPerformed By: #### TRAN, PROCRERAT, PTH, URIC, CBCNO, RENAL, MG, [id number] #### [facility] [address] [place] [address] USAPotassium [Moles/Vol]4.6 mmol/LNormal3.5-5.1The [facility] Physician GroupComment on above:Order Comment: Reason for Exam HTN (hypertension);Lupus;Chronic ITP (idiopathic thrombocytoPerformed By: #### TRAN, PROCRERAT, PTH, URIC, CBCNO, RENAL, MG, [id number] #### [facility] [address] [place] [address] USASodium [Moles/Vol]140 mmol/RRzpxpm910-311Wsouk [employer] Other Comment on above:Order Comment: Reason for Exam HTN (hypertension);Lupus;Chronic ITP (idiopathic thrombocytoPerformed By: #### TRAN, PROCRERAT, PTH, URIC, CBCNO, RENAL, MG, [id number] #### [facility] [address] [place] [address] USAUrea nitrogen [Mass/Vol]39 mg/dLHigh7-25Nosaint luke's hospital [employer] Other Comment on above:Order Comment: Reason for Exam HTN (hypertension);Lupus;Chronic ITP (idiopathic thrombocytoPerformed By: #### TRAN, PROCRERAT, PTH, URIC, CBCNO, RENAL, MG, [id number] #### [facility] [address] [place] [address] USAUric Acidon 34-85-0707Ewzbe [Mass/Vol]6.0437727 mg/dLHigh 2.3-6.6 mg/dLHunt Valley [employer] Other Urate [Mass/Vol]6.8 mg/dLHigh2.3-6.6The [facility] Physician GroupComment on above:Order Comment: Reason for Exam HTN (hypertension);Lupus;Chronic ITP (idiopathic thrombocytoPerformed By: #### TRAN, PROCRERAT, PTH, URIC, CBCNO, RENAL, MG, [id number] #### [facility] [address] [place] [address] USAVitamin D 25 Hydroxy Totalon 36-48-3490Xmymbxo D 25 Hydroxy Total11.8 ng/oROwx47-803 ng/mLNsaint francis medical center [employer]ania Other Vitamin D 25 Hydroxy Total11.8 ng/nEMpf59-707Pog [facility] Physician GroupComment on above:Order Comment: Reason for Exam HTN (hypertension);Lupus;Chronic ITP (idiopathic thrombocytoResult Comment: VITAMIN D STATUS 25(OH)VITAMIN D RANGE (ng/mL) Deficient <20 Insufficient 20 to <30 Sufficient 30 to 100 Reference: Sunita MF,Adarsh NC, Ranulfo VELAZQUEZ, et al. Evaluation,treatment, and prevention of vitamin D deficiency; an Endocrine Society clinical practice guideline. JCEM. 2010; 96(7):1911-30. PERFORMED BY: [place] [id number] PATHOLOGIST CYBER SECURITY SYSTEMS ENGINEER IVORY BORRERO M.D.Performed By: #### TRAN, PROCRERAT, PTH, URIC, CBCNO, RENAL, MG, [id number] #### [facility] [address] [place] [address] USAAlbumin [Mass/volume] in Serum or PlasmaOrdered By: Gilson Arriola on 03-10-9692Luudhyl [Mass/Vol]3.2 g/dL3.2-5.5FBerger HospitalAutomated erythrocytes count in urine sediment (number/area)Ordered By: Gilson Arriola on 53-02-4188PWF Auto (Urine sed) [#/Area]1-2 [HPF]0-4FBerger HospitalAutomated leukocytes count in urine sediment (number/area)Ordered By: Gilson Arriola on 05-68-6232FYH Auto (Urine sed) [#/Area] 0-1 [HPF]0-4FBerger HospitalBilirubin Test strip Ql (U)Ordered By: Gilson Arriola on 70-51-5126Slnyqqggr Ql (U)NegativeNegativeParkwood HospitalColor Auto (U)Ordered By: Gilson Tyrel on 71-31-6178Vqouf (U)Yellow YellowParkwood HospitalCreatinine [Mass/volume] in UrineOrdered By: Gilson Arriola on 68-22-5356Igampryjgu (U) [Mass/Vol]94.2 mg/dLParkwood HospitalComment on above:No reference range establishedCreatinine and Glomerular filtration rate.predicted panel (S/P/Bld)Ordered By: Gilson Arriola on 56-36-1213Nzrebquqjy [Mass/Vol]0.80 mg/dL0.44-1.03Parkwood HospitalErythrocyte distribution width Auto (RBC) [Ratio]Ordered By: Gilson Arriola on 02-71-4953Soukqdifjwf distribution width (RBC) [Ratio]14.9 %11.9-15.3 Parkwood HospitalEstimated glomerular filtration rate (GFR) non- AmericanOrdered By: Gilson Arriola on 19-28-0439ZZV/1.73 sq M.predicted among non-blacks MDRD (S/P/Bld) [Vol rate/Area]> 60 mL/MinParkwood HospitalHematocrit Auto (Bld) [Volume fraction]Ordered By: Gilson Arriola on 77-08-2323Vvwgxtyykw (Bld) [Volume fraction]34.9 %34.0-46.4FBerger HospitalHemoglobin [Mass/volume] in BloodOrdered By: Gilson Arriola on 79-62-4070Ebeympackl (Bld) [Mass/Vol]11.2 g/dL11.8-15.4FBerger HospitalKetones Auto test strip (U) [Mass/Vol]Ordered By: Gilson Arriola on 75-55-2374Davhbyq (U) [Mass/Vol]NegativeNegativeParkwood HospitalLaboratory - Chemistry and Chemistry - challengeOrdered By: Gilson Arriola on 99-02-5942Kkrvifliu [Mass/Vol]2.1 mg/dL1.6-2.6FBerger Hospital Laboratory - UrinalysisOrdered By: Gilson Arriola on 79-45-4335Uhbqkzz casts LM Ql (Urine sed)0-8 [LPF]0-8Parkwood HospitalLeukocytes [#/volume] corrected for nucleated erythrocytes in Blood by Automated counOrdered By: Gilson Arriola on 13-16-9789LTW corrected for nucl RBC Auto (Bld) [#/Vol]4.3 10*3/uL 3.8-11.6FTrinity Health System East CampusH Auto (RBC) [Entitic mass]Ordered By: Gilson Arriola on 57-56-9770UCC (RBC) [Entitic mass]29.5 pg24.7-34.3FTrinity Health System East CampusHC Auto (RBC) [Mass/Vol]Ordered By: Gilson Arriola on 74-08-2931GEKQ (RBC) [Mass/Vol]32.1 g/dL32.0-35.0[facility] HospitalMCV Auto (RBC) [Entitic vol]Ordered By: Gilson Arriola on 91-51-0721LYN (RBC) [Entitic vol]92.0 yW97-296ZooenjvxbParkwood HospitalNitrite Test strip Ql (U)Ordered By: Gilson Arriola on 15-49-5808Sjewxpe Ql (U)NegativeNegativeParkwood HospitalNo Panel InformationOrdered By: Gilson Arriola on 08-29-2022 Estimated GFR ()> 60 mL/MinParkwood Hospital Comment on above:GFR estimated reference range: According to KDOQI guidelines, <60 ml/min/1.73m2 is sufficient todiagnose a patient with chronic kidney disease.Pharmacy Creatinine Clearance (ChemN/[facility] Phosphate [Mass/volume] in Serum or PlasmaOrdered By: Gilson Arriola on 08-29-2022 Phosphate [Mass/Vol]3.1 mg/dL2.5-4.6FBerger HospitalPlatelet mean volume Auto (Bld) [Entitic vol]Ordered By: Gilson Arriola on 08-29-2022 Platelet mean volume (Bld) [Entitic vol]8.4 fL6.3-10.7FBerger HospitalPlatelets Auto (Bld) [#/Vol]Ordered By: Gilson Arriola on 34-23-3665Ahxuekxrg (Bld) [#/Vol]124 10*3/lA964-241KbwrlrcbbParkwood HospitalProtein Auto test strip (U) [Mass/Vol]Ordered By: Gilson Arriola on 31-81-3164Ogsixzz (U) [Mass/Vol]NegativeNegativeParkwood HospitalProtein [Mass/volume] in UrineOrdered By: Gilson Arriola on 18-13-8129Aybswoh (U) [Mass/Vol]9 mg/dL0-9 Park[facility] HospitalRBC Auto (Bld) [#/Vol]Ordered By: Gilson Arriola on 56-69-8794RBC (Bld) [#/Vol]3.79 10*6/uL3.60-5.00[facility] Systemerum or plasma anion gap determinationOrdered By: Gilson Arriola on 23-64-8709Gvbtu gap [Moles/Vol]10.9 mmol/L6.0-15.0[facility] Systemerum or plasma calcium measurement (mass/volume)Ordered By: Gilson Arriola on 87-40-0252Lcdodrd [Mass/Vol]8.8 mg/dL8.2-10.2FTrinity Health System West Campuserum or plasma chloride measurement (moles/volume)Ordered By: Gilson Arriola on 51-63-4868Ljcpsjik [Moles/Vol]99 mmol/Y69-556WcfavcljtUniversity Hospitals Health Systemerum or plasma glucose measurement (mass/volume)Ordered By: Gilson Arriola on 90-88-7821Uzohcqu [Mass/Vol]89 mg/iN48-317FodnmheahParkwood Hospital Comment on above:ADA recommended reference rangeRandom Glucose Reference Range is dependent on time and content of last meal. Glucose of more than 200 mg/dL in a nonstressed, ambulatory subject supports the diagnosisof Diabetes Mellitus. Serum or plasma potassium measurement (moles/volume)Ordered By: Gilson Arriola on 74-48-8061Qulatoinr [Moles/Vol]3.9 mmol/L3.5-5.1FTrinity Health System West Campuserum or plasma sodium measurement (moles/volume)Ordered By: Gilson Arriola on 64-96-2233Txilxu [Moles/Vol]134 mmol/U981-674BqwfvtsfoUniversity Hospitals Health Systemerum or plasma total carbon dioxide measurement (moles/volume)Ordered By: Gilson Arriola on 88-84-1530HF8 [Moles/Vol]28.0 mmol/L22.0-30.0[facility] Systemerum or plasma urea nitrogen measurement (mass/volume)Ordered By: Gilson Arriola on 03-83-7762Wexu nitrogen [Mass/Vol]19 mg/dL9-23[facility] Systempecific gravity Auto test strip (U) [Rel density]Ordered By: Gilson Arriola on 11-31-8440Doxkfwcy gravity (U) [Rel density]1.0151.001-1.030 [facility] Systemquamous epithelial cells detection in urine sediment by light microscopyOrdered By: Gilson Arriola on 16-23-0192Qiehmorbfq cells.squamous LM Ql (Urine sed)3-4 [HPF]0-2FBerger Hospital Urine bacteria detection by automated methodOrdered By: Gilson Arriola on 02-73-4717Rijnldgn Auto Ql (U)None seenNone SeenParkwood HospitalUrine clarity by refractometry automatedOrdered By: Gilson Arriola on 59-97-5580Wwavpox Refractometry automated (U)ClearClearFBerger HospitalUrine glucose measurement by automated test strip (mass/volume) Ordered By: Gilson Arriola on 80-05-2657Hqavgrt Auto test strip (U) [Mass/Vol] Normal mg/dLNormalParkwood HospitalUrine hemoglobin detection by automated test stripOrdered By: Gilson Arriola on 17-84-4009Jprlbiwccq Auto test strip Ql (U)NegativeNegMansfield HospitalUrine leukocyte esterase detection by automated test stripOrdered By: Gilson Arriola on 08-29-2022 Leukocyte esterase Auto test strip Ql (U)NegativeNegMansfield HospitalUrine protein/creatinine ratioOrdered By: Gilson Arriola on 02-19-9059Zolxmwp/Creatinine (U) [Ratio]96 mg/g{Cre}0-200Parkwood HospitalUrobilinogen Auto test strip (U) [Mass/Vol]Ordered By: Gilson Arriola on 13-20-4208Qvrqdsxojvvu (U) [Mass/Vol]Normal mg/dLNormalParkwood HospitalpH Auto test strip (U)Ordered By: Gilson Arriola on 62-26-7492pM (U) 6.5 [pH]5.0-9.0Parkwood HospitalMAGNESIUM BLDon 12-17-2021 Magnesium [Mass/Vol]2.3 mg/dL1.7 - 2.3 mg/dLCleveland Clinic Avon Hospital Vital Signs Date TimeVital SignValuePerforming DgaveelhgNufnnbhf65-50-5375 10:02-0400Body .02 cmLisa Aichholz STRAP CUTTING MACHINE OPERATOR-C Work Phone: 1(082)465-[address] [place], [place] 9815510-30-2025 10:02-0400 Body mass index (BMI) [Ratio]3 kg/m2Lisa Aichholz STRAP CUTTING MACHINE OPERATOR-C Work Phone: 1(874)049-[address] [place], [place] 9815510-30-2025 10:02-0400 Body bkjiqmrhljr02.2 [degF]Stephanie Aichholz STRAP CUTTING MACHINE OPERATOR-C Work Phone: 1(592)001-[address] [place], [place] 0875310-30-2025 10:02-0400 Body weight7.71 kgLisa Aichholz STRAP CUTTING MACHINE OPERATOR-C Work Phone: 1(441)290-[address] [place], [place] 0875310-30-2025 10:02-0400 Diastolic blood ajiqmfql58 mm[Hg]Stephanie Aichholz STRAP CUTTING MACHINE OPERATOR-C Work Phone: [facility]10-30-2025 10:02-0400 Heart rate62 /minLisa Aichholz STRAP CUTTING MACHINE OPERATOR-C Work Phone: [facility]10-30-2025 10:02-0400 Respiratory rate16 /minLisa Aichholz STRAP CUTTING MACHINE OPERATOR-C Work Phone: 1(419)547-[address] [place], [place] 9815510-30-2025 10:02-0400 SaO2% (BldA) [Mass fraction]98 %Stephanie Aichholz STRAP CUTTING MACHINE OPERATOR-C Work Phone: [phone] [place], [place] 9815510-30-2025 10:02-0400 Systolic blood tmycmsxa954 mm[Hg]Stephanie Aichholz STRAP CUTTING MACHINE OPERATOR-C Work Phone: [phone]10-22-2025 13:12-0400 Diastolic blood yzqyvjwg85 mm[Hg]Stephanie Aichholz STRAP CUTTING MACHINE OPERATOR-C Work Phone: [phone]10-22-2025 13:12-0400 Systolic blood jhzhnfwa126 mm[Hg]Stephanie Aichholz STRAP CUTTING MACHINE OPERATOR-C Work Phone: [phone]10-22-2025 13:06-0400 Body .02 cmLisa Aichholz STRAP CUTTING MACHINE OPERATOR-C Work Phone: [phone])[address] [place], [place] 2560610-22-2025 13:06-0400 Body mass index (BMI) [Ratio]31.5 kg/m2Lisa Aichholz STRAP CUTTING MACHINE OPERATOR-C Work Phone: [phone])[address]10-22-2025 13:06-0400 Body .73 kgLisa Aichholz STRAP CUTTING MACHINE OPERATOR-C Work Phone: [phone]10-22-2025 13:06-0400 Heart rate67 /minLisa Aichholz STRAP CUTTING MACHINE OPERATOR-C Work Phone: [phone])[address]10-22-2025 13:06-0400 Respiratory rate16 /minLisa Aichholz STRAP CUTTING MACHINE OPERATOR-C Work Phone: [phone])[address]10-22-2025 13:06-0400 SaO2% (BldA) [Mass fraction]99 %Stephanie Aichholz STRAP CUTTING MACHINE OPERATOR-C Work Phone: 1(824)717-[address] [place], [place] 9815510-16-2025 10:43-0400 Body fugtfc505.02 cmLisa Aichholz STRAP CUTTING MACHINE OPERATOR-C Work Phone: [phone])[address]10-16-2025 10:43-0400 Body mass index (BMI) [Ratio]31.4 kg/m2Lisa Aichholz STRAP CUTTING MACHINE OPERATOR-C Work Phone: [phone])[address]10-16-2025 10:43-0400 Body trygnbenlij44.5 [degF]Stephanie Aichholz STRAP CUTTING MACHINE OPERATOR-C Work Phone: [phone])[address] [place], [place] 2560610-16-2025 10:43-0400 Body jfgegq85.51 kgLisa Aichholz STRAP CUTTING MACHINE OPERATOR-C Work Phone: 1(691)[address] [place], [place] 2560610-16-2025 10:43-0400 Diastolic blood ewwlthet28 mm[Hg]Stephanie Aichholz STRAP CUTTING MACHINE OPERATOR-C Work Phone: 1(970)[address] [place], [place] 2560610-16-2025 10:43-0400 Heart rate77 /minLisa Aichholz STRAP CUTTING MACHINE OPERATOR-C Work Phone: [phone] [place], [place] 2560610-16-2025 10:43-0400 Respiratory rate20 /minLisa Aichholz STRAP CUTTING MACHINE OPERATOR-C Work Phone: 1(974)[address] [place], [place] 2560610-16-2025 10:43-0400 Systolic blood yteueitj908 mm[Hg]Stephanie Aichholz STRAP CUTTING MACHINE OPERATOR-C Work Phone: 1(567)[address]10-15-2025 10:59-0400 Body rjflsi941 cmMar Mayo MD Work Phone: [facility] HospitalGrtidgfzce41-43-1867 10:59-0400Body mass index (BMI) [Ratio]31.18 kg/q1JcimodMar Mayo MD Work Phone: [facility] HospitalYeejslkzol12-28-2076 10:59-0400Body .83 kgMar Mayo MD Work Phone: [facility] HospitalTcwcngmsto14-08-6106 10:59-0400Diastolic blood wzrvqyvz95 mm[Hg]Mar Mayo MD Work Phone: 1(773)[address] [place] [address]-15-2025 10:59-0400Heart rate59 /min Mar Mayo MD Work Phone: 1(249)[address] [place] [address]-15-2025 10:59-0400Systolic blood mm[Hg]Mar Mayo MD Work Phone: 1(486)[address] [place] [address]-24-2025 11:06-0400Body jbathu137 cm Mar Mayo MD Work Phone: 1(907)[address] [place] [address]-24-2025 11:06-0400Body mass index (BMI) [Ratio]31.18 kg/z2GjpxudMar Mayo MD Work Phone: 1(420)[address] [place] [address]-24-2025 11:06-0400Body dhjfyi98.83 kgMar Mayo MD Work Phone: 1(928)[address] [place] [address]-24-2025 11:06-0400Diastolic blood beuanixa55 mm[Hg]Mar Mayo MD Work Phone: 1(060)[address] [place] [address]-24-2025 11:06-0400Heart rate66 /min Mar Mayo MD Work Phone: 1(119)[address] [place] [address]-24-2025 11:06-0400Systolic blood otcrbvpt080 mm[Hg]Mar Mayo MD Work Phone: 1(151)[address] [place] [address]-05-2025 14:13-0400Body temperature 98.6 [degF][facility] Work Phone: [place] [address]-05-2025 14:13-0400Diastolic blood mm[Hg][facility] Work Phone: [place] [address]-05-2025 14:13-0400Heart rate71 /min [facility] Work Phone: [place] [address]-05-2025 14:13-0400Respiratory rate 18 /minLab/[facility] Work Phone: [facility]09-05-2025 14:13-2650IkP3% (BldA) [Mass fraction]98 %[facility] Work Phone: [facility]09-05-2025 14:13-0400Systolic blood uggfdtpp075 mm[Hg][facility] Work Phone: [facility]09-04-2025 10:18-0400Body temperature 98.5 [degF]Stephanie Aichholz Work Phone: 1(058)291-[facility]09-04-2025 10:18-0400 Body ratmwi93.28 kgLisa Aichholz Work Phone: [phone]09-04-2025 10:18-0400 Diastolic blood xvlycsxx11 mm[Hg]Stephanie Aichholz Work Phone: 1(148)992-[address] [place], [place] 9815509-04-2025 10:18-0400 Heart rate62 /minLisa Aichholz Work Phone: 1(634)489-[address] [place], [place] 9815509-04-2025 10:18-0400 Respiratory rate18 /minLisa Aichholz Work Phone: 1(730)685-[address] [place], [place] 9815509-04-2025 10:18-0400 SaO2% (BldA) [Mass fraction]95 %Stephanie Aichholz Work Phone: 1(029)055-[facility]09-04-2025 10:18-0400 Systolic blood igiqfyab433 mm[Hg]Stephanie Aichholz Work Phone: 1(885)606-[facility]08-08-2025 14:13-0400 Body muybrc244.8 cmJayden Connelly APRN.CNP Work Phone: [facility]08-08-2025 14:13-0400Body mass index (BMI) [Ratio]31.49 kg/h2YmbnzJayden Connelly APRN.CNP Work Phone: [facility]08-08-2025 14:13-0400Body temperature 97.39 [degF]Jayden Connelly APRN.DRUG ABUSE WORKER Work Phone: [facility]08-08-2025 14:13-0400Body hqcfxe88.4 kgJayden Connelly APRN.DRUG ABUSE WORKER Work Phone: [facility]08-08-2025 14:13-0400Diastolic blood mm[Hg]Jayden Connelly DEVELOPING MACHINE TENDER.DRUG ABUSE WORKER Work Phone: [facility]08-08-2025 14:13-0400Heart rate82 /min Jayden Connelly DEVELOPING MACHINE TENDER.DRUG ABUSE WORKER Work Phone: [facility]08-08-2025 14:13-0400Respiratory rate 16 /minJayden Connelly APRN.DRUG ABUSE WORKER Work Phone: [facility]08-08-2025 14:13-4264HaO2% (BldA) [Mass fraction]100 %Jayden Connelly APRN.DRUG ABUSE WORKER Work Phone: [facility]08-08-2025 14:13-0400Systolic blood hhqvmoor722 mm[Hg]Jayden Connelly APRN.DRUG ABUSE WORKER Work Phone: [facility]07-30-2025 15:51-0400Body temperature 96.3 [degF]Susanna Graf MD Work Phone: [facility]07-30-2025 15:51-0400 Diastolic blood sinoltsi05 mm[Hg]Susanna Graf MD Work Phone: [facility]07-30-2025 15:51-0400 Heart rate69 /Annmarie Graf MD Work Phone: [facility]07-30-2025 15:51-0400 Respiratory rate15 /Annmarie Graf MD Work Phone: [facility]07-30-2025 15:51-0400 SaO2% (BldA) [Mass fraction]95 %Susanna Graf MD Work Phone: [facility]07-30-2025 15:51-0400 Systolic blood ompknzew864 mm[Hg]Susanna Graf MD Work Phone: [facility]07-30-2025 10:35-0400 Body Ameena Graf MD Work Phone: [facility]07-30-2025 10:35-0400 Body mass index (BMI) [Ratio]31.32 kg/v2NoyjaSusanna Graf MD Work Phone: [facility]07-30-2025 10:35-0400 Body unpjyt41.2 kgSusanna Graf MD Work Phone: [facility]07-25-2025 14:29-0400 Body qxffkvbkhcy81.49 [degF][facility] Work Phone: [facility]07-25-2025 14:29-0400Diastolic blood phgtcgil61 mm[Hg][facility] Work Phone: [facility]07-25-2025 14:29-0400Heart rate64 /min [facility] Work Phone: [facility]07-25-2025 14:29-0400Respiratory rate 18 /minLab/[facility] Work Phone: [facility]07-25-2025 14:29-6807QvG1% (BldA) [Mass fraction]97 %[facility] Work Phone: [facility]07-25-2025 14:29-0400Systolic blood oqzgdpsz864 mm[Hg][facility] Work Phone: [facility]07-21-2025 13:49-0400Body kakcdv061.02 Haley Bowensjuan josez Work Phone: [facility]07-21-2025 13:49-0400 Body mass index (BMI) [Ratio]31.5 kg/m2Lisa Maurisioholruben Work Phone: [facility]07-21-2025 13:49-0400 Body wzgont26.73 kgLisa Maurisioholruben Work Phone: [facility]07-21-2025 13:49-0400 Diastolic blood vxteicsh46 mm[Hg]Stephaniekori Dumont Work Phone: [facility]07-21-2025 13:49-0400 Heart rate78 /minSadesa Maurisioholruben Work Phone: 1(947)894-[address] [place], [place] 9815507-21-2025 13:49-0400 Respiratory rate16 /minLisa Maurisioholruben Work Phone: 1(249)674-[address] [place], [place] 9815507-21-2025 13:49-0400 SaO2% (BldA) [Mass fraction]97 %Stephanie Dumont Work Phone: [facility]07-21-2025 13:49-0400 Systolic blood zwhyarxg016 mm[Hg]Stephanie Dumont Work Phone: [facility]07-11-2025 14:36-0400 Body kuzufyafnuv82.2 [degF][facility] Work Phone: [facility]07-11-2025 14:36-0400Diastolic blood jlvlyjqe68 mm[Hg][facility] Work Phone: [facility]07-11-2025 14:36-0400Heart rate67 /min [facility] Work Phone: [facility]07-11-2025 14:36-0400Respiratory rate 18 /minLab/[facility] Work Phone: [facility]07-11-2025 14:36-6142PgW9% (BldA) [Mass fraction]99 %[facility] Work Phone: [facility]07-11-2025 14:36-0400Systolic blood ddgryagh334 mm[Hg][facility] Work Phone: [facility]07-09-2025 14:15-0400Body mass index (BMI) [Ratio]30.96 kg/m2Lisa Aichholz STRAP CUTTING MACHINE OPERATOR Work Phone: [facility] HospitalSrshfcuwru48-47-9721 14:15-0400Body temperature 98.49 [degF]Stephanie Aichholz STRAP CUTTING MACHINE OPERATOR Work Phone: [facility] HospitalXgxjnaymzf10-96-8178 14:15-0400Body fxuwlx78.29 kgLisa Aichholz STRAP CUTTING MACHINE OPERATOR Work Phone: [facility] HospitalGdjtlwecvk15-24-3836 14:15-0400Diastolic blood xpovdadj58 mm[Hg]Stephanie Aichholz STRAP CUTTING MACHINE OPERATOR Work Phone: [facility] HospitalDtxrgprpvh47-29-8938 14:15-0400Heart rate87 /min Stephanie Aichholz STRAP CUTTING MACHINE OPERATOR Work Phone: [facility] HospitalJucbmpofva05-65-0148 14:15-0400Respiratory rate18 /minLisa Aichholz STRAP CUTTING MACHINE OPERATOR Work Phone: [facility] HospitalBsoeecyaqm72-48-9986 14:15-2906StE9% (BldA) [Mass fraction]98 %Stephanie Aichholz STRAP CUTTING MACHINE OPERATOR Work Phone: [facility] HospitalWhqwwitayr01-52-8592 14:15-0400Systolic blood ysmalglp687 mm[Hg]Stephanie Aichholz STRAP CUTTING MACHINE OPERATOR Work Phone: [facility] HospitalWklfknxajd85-04-0200 11:37-0400Body mass index (BMI) [Ratio]31.35 kg/m2Lisa Aichholz STRAP CUTTING MACHINE OPERATOR Work Phone: [facility] HospitalThxjcggaqz54-56-9483 11:37-0400Body temperature 98.49 [degF]Stephanie Aichholz STRAP CUTTING MACHINE OPERATOR Work Phone: [facility] HospitalKsjowoqnfl93-58-8034 11:37-0400Body meljek09.29 kgLisa Aichholz STRAP CUTTING MACHINE OPERATOR Work Phone: [facility] HospitalIxepacupnf44-53-2305 11:37-0400Diastolic blood mxqcvich40 mm[Hg]Stephanie Dumont STRAP CUTTING MACHINE OPERATOR Work Phone: [facility] HospitalDzhpnrilwg33-98-3709 11:37-0400Heart rate63 /min Stephanie Dumont STRAP CUTTING MACHINE OPERATOR Work Phone: [facility] HospitalBsktkfeboq46-14-0484 11:37-0400Respiratory rate18 /minStephanie Dumont STRAP CUTTING MACHINE OPERATOR Work Phone: [facility] HospitalNfhjkjuzwr84-48-2172 11:37-4581NpX8% (BldA) [Mass fraction]97 %Stephanie Dumont STRAP CUTTING MACHINE OPERATOR Work Phone: [facility] HospitalAwklsweemr51-12-3516 11:37-0400Systolic blood qmafatpt355 mm[Hg]Stephanie Dumont STRAP CUTTING MACHINE OPERATOR Work Phone: [facility] HospitalNxhmxcnbkf03-17-7109 13:58-0400Body mass index (BMI) [Ratio]31.72 kg/k5VumicJayden Connelly APRN.DRUG ABUSE WORKER Work Phone: [facility]06-27-2025 13:58-0400Body temperature 97.59 [degF]Jayden Connelly APRN.DRUG ABUSE WORKER Work Phone: [facility]06-27-2025 13:58-0400Body ufrvwt30 kg Jayden Connelly APRN.DRUG ABUSE WORKER Work Phone: [facility]06-27-2025 13:58-0400Diastolic blood rlyfntkp57 mm[Hg]Jayden Connelly APRN.DRUG ABUSE WORKER Work Phone: [facility]06-27-2025 13:58-0400Heart rate61 /min Jayden Connelly APRN.DRUG ABUSE WORKER Work Phone: [facility]06-27-2025 13:58-0400Respiratory rate 18 /minJayden Connelly APRN.DRUG ABUSE WORKER Work Phone: [facility]06-27-2025 13:58-4111LbS0% (BldA) [Mass fraction]98 %Jayden Connelly DEVELOPING MACHINE TENDER.DRUG ABUSE WORKER Work Phone: [facility]06-27-2025 13:58-0400Systolic blood mm[Hg]Jayden Connelly APRN.DRUG ABUSE WORKER Work Phone: [facility]06-18-2025 11:04-0400Body mass index (BMI) [Ratio]30.72 kg/m2Stephanie Kwanjonnarichi STRAP CUTTING MACHINE OPERATOR Work Phone: [facility] HospitalBfnbiosyha33-70-1744 11:04-0400Body temperature 98.71 [degF]Stephanie Anilz STRAP CUTTING MACHINE OPERATOR Work Phone: [facility] HospitalNqktmsjaqh96-04-6598 11:04-0400Body .65 kgLisa Fordejuan josez STRAP CUTTING MACHINE OPERATOR Work Phone: [facility] HospitalVaasbhvxck35-62-9437 11:04-0400Diastolic blood lclhdhex63 mm[Hg]Stephanie Kwanjonnajuan josez STRAP CUTTING MACHINE OPERATOR Work Phone: [facility] HospitalRdooeyyksk38-00-9706 11:04-0400Heart rate73 /min Stephanie Maurisiojuan josez STRAP CUTTING MACHINE OPERATOR Work Phone: [facility] HospitalMzohnuuxpa91-53-8025 11:04-0400Respiratory rate18 /minLisa Maz STRAP CUTTING MACHINE OPERATOR Work Phone: [facility] HospitalVaufluyunm47-92-8909 11:04-1820SzW6% (BldA) [Mass fraction]97 %Stephanie Kwanjonnaholz STRAP CUTTING MACHINE OPERATOR Work Phone: [facility] HospitalKmxjytylbj91-00-9915 11:04-0400Systolic blood zsgudxgf90 mm[Hg]Stephanie Kawnhholz STRAP CUTTING MACHINE OPERATOR Work Phone: [facility] HospitalObckfujvwa31-02-9134 13:42-0400Body temperature 97.7 [degF][facility] Work Phone: [facility]06-13-2025 13:42-0400Diastolic blood dygpymyf86 mm[Hg][facility] Work Phone: [facility]06-13-2025 13:42-0400Heart rate77 /min Lab/[facility] [place] Work Phone: [facility]06-13-2025 13:42-0400Respiratory rate 18 /minLab/[facility] [place] Work Phone: [facility]06-13-2025 13:42-6491IlW8% (BldA) [Mass fraction]99 %[facility] [place] Work Phone: [facility]06-13-2025 13:42-0400Systolic blood fajrdeow507 mm[Hg]Lab/[facility] [place] Work Phone: [facility]05-30-2025 13:40-0400Body temperature 98.1 [degF]Lab/[facility] [place] Work Phone: [facility]05-30-2025 13:40-0400Diastolic blood cstaqdow81 mm[Hg]Lab/[facility] [place] Work Phone: [facility]05-30-2025 13:40-0400Heart rate67 /min Lab/[facility] [place] Work Phone: [facility]05-30-2025 13:40-0400Respiratory rate 18 /minLab/[facility] [place] Work Phone: [facility]05-30-2025 13:40-3660IwG0% (BldA) [Mass fraction]98 %[facility] [place] Work Phone: [facility]05-30-2025 13:40-0400Systolic blood yqukncep635 mm[Hg]Lab/[facility] [place] Work Phone: [facility]05-20-2025 15:28-0400Body mass index (BMI) [Ratio]34.19 kg/f9ZddqgSusanna Graf MD Work Phone: [facility]05-20-2025 15:28-0400 Body .54 kgSalalo Kyle MD Work Phone: [facility]05-16-2025 13:57-0400 Body mass index (BMI) [Ratio]32.44 kg/y7WoijtRinku Dupree MD Work Phone: [facility]05-16-2025 13:57-0400Body temperature 97.11 [degF]Rinku Dupree MD Work Phone: [facility]05-16-2025 13:57-0400Body rpikna20.8 kgRinku Dupree MD Work Phone: [facility]05-16-2025 13:57-0400Diastolic blood hbtsywqv01 mm[Hg]Rinku Dupree MD Work Phone: [facility]05-16-2025 13:57-0400Heart rate78 /min Rinku Dupree MD Work Phone: [facility]05-16-2025 13:57-0400Respiratory rate 18 /minRinku Dupree MD Work Phone: [facility]05-16-2025 13:57-2620VpK6% (BldA) [Mass fraction]97 %Rinku Dupree MD Work Phone: [facility]05-16-2025 13:57-0400Systolic blood adtsutod129 mm[Hg]Rinku Dupree MD Work Phone: [facility]04-04-2025 10:08-0400Body mass index (BMI) [Ratio]32.32 kg/n8ZflwpaLi Pitts DEVELOPING MACHINE TENDER.DRUG ABUSE WORKER Work Phone: [facility]04-04-2025 10:08-0400Body temperature 97.81 [degF]Li Pitts DEVELOPING MACHINE TENDER.DRUG ABUSE WORKER Work Phone: [facility]04-04-2025 10:08-0400Body ewowrv36.5 kgLi Pitts DEVELOPING MACHINE TENDER.DRUG ABUSE WORKER Work Phone: [facility]04-04-2025 10:08-0400Diastolic blood qltkyuye22 mm[Hg]Li Hong DEVELOPING MACHINE TENDER.DRUG ABUSE WORKER Work Phone: [facility]04-04-2025 10:08-0400Heart rate79 /min Li Hong DEVELOPING MACHINE TENDER.DRUG ABUSE WORKER Work Phone: [facility]04-04-2025 10:08-0400Respiratory rate 16 /minJaimee Hong DEVELOPING MACHINE TENDER.DRUG ABUSE WORKER Work Phone: [facility]04-04-2025 10:08-6783OuL4% (BldA) [Mass fraction]99 %Li Hong DEVELOPING MACHINE TENDER.DRUG ABUSE WORKER Work Phone: [facility]04-04-2025 10:08-0400Systolic blood ksefvgfh929 mm[Hg]Li Hong DEVELOPING MACHINE TENDER.DRUG ABUSE WORKER Work Phone: [facility]02-21-2025 10:48-0500Body mass index (BMI) [Ratio]32.79 kg/n5Eftawt Hong DEVELOPING MACHINE TENDER.DRUG ABUSE WORKER Work Phone: [facility]02-21-2025 10:48-0500Body temperature 97.5 [degF]Li Hong DEVELOPING MACHINE TENDER.DRUG ABUSE WORKER Work Phone: [facility]02-21-2025 10:48-0500Body zpyuyx07.7 kgFranke Hong DEVELOPING MACHINE TENDER.DRUG ABUSE WORKER Work Phone: [facility]02-21-2025 10:48-0500Diastolic blood buqoprtl28 mm[Hg]Li Hong DEVELOPING MACHINE TENDER.DRUG ABUSE WORKER Work Phone: [facility]02-21-2025 10:48-0500Heart rate75 /min Li Hong DEVELOPING MACHINE TENDER.DRUG ABUSE WORKER Work Phone: [facility]02-21-2025 10:48-0500Respiratory rate 18 /minMarkimee Hong DEVELOPING MACHINE TENDER.DRUG ABUSE WORKER Work Phone: [facility]02-21-2025 10:48-2644EyS9% (BldA) [Mass fraction]98 %Li Pitts DEVELOPING MACHINE TENDER.DRUG ABUSE WORKER Work Phone: [facility]02-21-2025 10:48-0500Systolic blood gmmhnynz246 mm[Hg]Li Pitts DEVELOPING MACHINE TENDER.DRUG ABUSE WORKER Work Phone: [facility]02-12-2025 13:17-0500Body qoxlpe604.02 [facility] 13:17-0500Body mass index (BMI) [Ratio]32.2 kg/c4[facility]jivotsupParkwood [facility]02-12-2025 13:17-0500Body dnigdwkgjvq76.2 [degF][facility]02-12-2025 13:17-0500Body byhbyy92.55 [facility] 13:17-0500Diastolic blood xsfyxuww68 mm[Hg][facility]02-12-2025 13:17-0500 Heart rate85 /[facility]02-12-2025 13:17-0500 Respiratory rate18 /[facility]02-12-2025 13:17-0500 SaO2% (BldA) [Mass fraction]98 %[facility]02-12-2025 13:17-0500Systolic blood rdchljqe489 mm[Hg][facility] 08-15-2024 10:46-0500Body unbefh251 Amarilysisa Tim STRAP CUTTING MACHINE OPERATOR Work Phone: [facility]pq[facility]hy24-70-2404 10:46-0500Body mass index (BMI) [Ratio]32.38 kg/m2Stephanie Dumont STRAP CUTTING MACHINE OPERATOR Work Phone: [facility] HospitalMiliacsoem29-94-6860 10:46-0500Body temperature 98.71 [degF]Stephanie Dumont STRAP CUTTING MACHINE OPERATOR Work Phone: [facility] CenterQotctpmdsx87-07-8901 10:46-0500Body sbjxid73.92 kgStephanie Dumont STRAP CUTTING MACHINE OPERATOR Work Phone: [facility] HospitalBlebiacxsl69-07-5356 10:46-0500Diastolic blood vuvzkkue23 mm[Hg]Stephanie Dumont STRAP CUTTING MACHINE OPERATOR Work Phone: [facility] HospitalEozcskrmyq81-57-5894 10:46-0500Heart rate65 /min Stephanie Dumont STRAP CUTTING MACHINE OPERATOR Work Phone: [facility] HospitalBkgpkjprwu21-86-1309 10:46-0500Respiratory rate19 /minStephanie Dumont STRAP CUTTING MACHINE OPERATOR Work Phone: [facility] HospitalWhusaguymb18-70-5616 10:46-9053YlU0% (BldA) [Mass fraction]99 %Stephanie Dumont STRAP CUTTING MACHINE OPERATOR Work Phone: [facility] HospitalYwuxahipyq33-55-6033 10:46-0500Systolic blood hvaztlaf820 mm[Hg]Stephanie Dumont STRAP CUTTING MACHINE OPERATOR Work Phone: [facility] HospitalJqtbtqcbta56-72-4490 10:52-0500Body uxwstj265.8 cmLi Pitts DEVELOPING MACHINE TENDER.DRUG ABUSE WORKER Work Phone: [facility]01-02-2025 10:52-0500Body mass index (BMI) [Ratio]33.55 kg/n1CbldhxLi Pitts DEVELOPING MACHINE TENDER.DRUG ABUSE WORKER Work Phone: [facility]01-02-2025 10:52-0500Body temperature 97.59 [degF]Li Pitts DEVELOPING MACHINE TENDER.DRUG ABUSE WORKER Work Phone: [facility]01-02-2025 10:52-0500Body wufybh35.6 kgLi Pitts DEVELOPING MACHINE TENDER.DRUG ABUSE WORKER Work Phone: [facility]01-02-2025 10:52-0500Diastolic blood ccoxigkb73 mm[Hg]Li Pitts DEVELOPING MACHINE TENDER.DRUG ABUSE WORKER Work Phone: [facility]01-02-2025 10:52-0500Heart rate77 /min Li Pitts DEVELOPING MACHINE TENDER.DRUG ABUSE WORKER Work Phone: [facility]01-02-2025 10:52-0500Respiratory rate 18 /minLi Pitts DEVELOPING MACHINE TENDER.DRUG ABUSE WORKER Work Phone: [facility]01-02-2025 10:52-4219OxA7% (BldA) [Mass fraction]97 %Li Pitts DEVELOPING MACHINE TENDER.DRUG ABUSE WORKER Work Phone: [facility]01-02-2025 10:52-0500Systolic blood iyxsokjl415 mm[Hg]Li Pitts DEVELOPING MACHINE TENDER.DRUG ABUSE WORKER Work Phone: [facility]11-21-2024 10:29-0500Body aoegso358.8 Melchor Dupree MD Work Phone: [facility]11-21-2024 10:29-0500Body mass index (BMI) [Ratio]33.03 kg/j1TyjdjRinku Dupree MD Work Phone: [facility]11-21-2024 10:29-0500Body temperature 97.2 [degF]Rinku Dupree MD Work Phone: [facility]11-21-2024 10:29-0500Body yhlmwj83.3 kgRinku Dupree MD Work Phone: [facility]11-21-2024 10:29-0500Diastolic blood gojstplr96 mm[Hg]Rinku Dupree MD Work Phone: [facility]11-21-2024 10:29-0500Heart rate71 /min Rinku Dupree MD Work Phone: [facility]11-21-2024 10:29-0500Respiratory rate 16 /minRinku Dupree MD Work Phone: [place] [address]-21-2024 10:29-2191RvR8% (BldA) [Mass fraction]97 %Rinku Dupree MD Work Phone: [facility]11-21-2024 10:29-0500Systolic blood jnabstrm687 mm[Hg]Rinku Dpuree MD Work Phone: [facility]11-06-2024 14:15-0500Body rpuktb077 cm Mar Mayo MD Work Phone: [place] [address]Qzwsajeiqb75-12-9968 14:15-0500Body mass index (BMI) [Ratio]32.77 kg/q1TfuztgMar Mayo MD Work Phone: [place] [address]Aclcqaalbp38-70-4988 14:15-0500Body bheywv57.92 kgMar Mayo MD Work Phone: [place] [address]Vllhxbobce27-87-9734 14:15-0500Diastolic blood foqonsnw97 mm[Hg]Mar Mayo MD Work Phone: [place] [address]Gavvfwgwco06-41-4702 14:15-0500Systolic blood olytkktg939 mm[Hg]Mar Mayo MD Work Phone: [place] [address]Wcmaevlupo19-69-5976 10:32-0500Body cm Stephanie Tim STRAP CUTTING MACHINE OPERATOR Work Phone: [place] [address]Owzhszygld85-94-0435 10:32-0500Body mass index (BMI) [Ratio]33.13 kg/m2Lisa Kwanhholz STRAP CUTTING MACHINE OPERATOR Work Phone: [place] [address]Mknhdvvimn42-71-1157 10:32-0500Body temperature 98.71 [degF]Stephanie Anilz STRAP CUTTING MACHINE OPERATOR Work Phone: 1(722)185-[address] [place], [place] [address]Cqkfwpusup78-96-8223 10:32-0500Body .82 kgLisa Kwanhholz STRAP CUTTING MACHINE OPERATOR Work Phone: [place] [address]Jlnwdjgzig40-63-0624 10:32-0500Diastolic blood nxeyapke16 mm[Hg]Stephanie Aichholz STRAP CUTTING MACHINE OPERATOR Work Phone: [place] [address]Mhmwozehnh60-23-1818 10:32-0500Heart rate75 /min Stephanie Kwanhjuan josez STRAP CUTTING MACHINE OPERATOR Work Phone: [place] [address]Tnswjjgbbd66-57-8682 10:32-0500Respiratory rate19 /minLisa Kwanhholz STRAP CUTTING MACHINE OPERATOR Work Phone: [facility] HospitalGxzqfepcem11-03-8764 10:32-3400DbM8% (BldA) [Mass fraction]97 %Stephaniekori Maz STRAP CUTTING MACHINE OPERATOR Work Phone: [place] [address]Iqftwltnvn38-78-0209 10:32-0500Systolic blood lqyzsenx479 mm[Hg]Stephanie Maurisioholz STRAP CUTTING MACHINE OPERATOR Work Phone: [facility] HospitalXhbljbkuzs37-30-5059 11:08-0400Body omdlzr402 cm Stephanie Maurisioholz STRAP CUTTING MACHINE OPERATOR Work Phone: 1(652)11-[address] [place], [place] [address]Tubzjbimhi55-04-9935 11:08-0400Body mass index (BMI) [Ratio]32.38 kg/m2Lisa Maurisioholz STRAP CUTTING MACHINE OPERATOR Work Phone: 1(896)741-[address] [place], [place] [address]Szqqvscatu08-29-8613 11:08-0400Body temperature 98.49 [degF]Stephanie Maurisioholz STRAP CUTTING MACHINE OPERATOR Work Phone: 1(387)[facility] [place] [address]-16-2024 11:08-0400Body .92 kgLisa Maurisioholz STRAP CUTTING MACHINE OPERATOR Work Phone: [facility] HospitalBdbchojssf77-24-4648 11:08-0400Diastolic blood dyymcobj90 mm[Hg]Stephanie Maurisioholz STRAP CUTTING MACHINE OPERATOR Work Phone: [facility] HospitalOgagjsaeaw34-73-5048 11:08-0400Heart rate74 /min Stephanie Maurisioholz STRAP CUTTING MACHINE OPERATOR Work Phone: 1(071)3-[address] [place], [place] [address]Ohtbtazwxo89-55-1846 11:08-0400Respiratory rate19 /minLisa Maurisioholz STRAP CUTTING MACHINE OPERATOR Work Phone: [place] [address]Jutehvtikd87-16-3556 11:08-2956ZnZ2% (BldA) [Mass fraction]100 %Stephanie Maurisioholz STRAP CUTTING MACHINE OPERATOR Work Phone: [place] [address]Yqvhbkltmj67-35-1948 11:08-0400Systolic blood fhvthlvo567 mm[Hg]Stephanie Kwanhholz STRAP CUTTING MACHINE OPERATOR Work Phone: 1(262)[facility] [place] [address]-10-2024 11:02-0400Body .8 cmVjoesph Dupree MD Work Phone: [facility]10-10-2024 11:02-0400Body mass index (BMI) [Ratio]34.72 kg/u4NujqkRinku Dupree MD Work Phone: [facility]10-10-2024 11:02-0400Body temperature 97.59 [degF]Rinku Dupree MD Work Phone: [facility]10-10-2024 11:02-0400Body rfbuyv95.54 kgRinku Dupree MD Work Phone: [facility]10-10-2024 11:02-0400Diastolic blood oiarsqtg97 mm[Hg]Rinku Dupree MD Work Phone: [facility]10-10-2024 11:02-0400Heart rate74 /min Rinku Dupree MD Work Phone: [facility]10-10-2024 11:02-0400Respiratory rate 16 /minRinku Dupree MD Work Phone: [facility]10-10-2024 11:02-0215QcJ8% (BldA) [Mass fraction]97 %Rinku Dupree MD Work Phone: [facility]10-10-2024 11:02-0400Systolic blood pwnonntc223 mm[Hg]Rinku Dupree MD Work Phone: [facility]10-01-2024 10:15-0400Body gztonq580 cm Blaise GONZALEZ Work Phone: [facility] HospitalMxstxrpuas63-02-5439 10:15-0400Body mass index (BMI) [Ratio]32.59 kg/y4QggwceqBlaise GONZALEZ Work Phone: noK[facility] CenterLxelxswkdw44-75-2321 10:15-0400Body .46 kgMarodríguez GONZALEZ Work Phone: [place] [address]Mgcolcvbpa59-50-8798 09:47-0400Body japcna861 cm Stephanie Dumont STRAP CUTTING MACHINE OPERATOR Work Phone: [facility] HospitalKvpxhnawko15-03-6561 09:47-0400Body mass index (BMI) [Ratio]32.7 kg/m2Stephanie Dumont STRAP CUTTING MACHINE OPERATOR Work Phone: [place] [address]Quzzjeqwwm42-55-0890 09:47-0400Body temperature 98.29 [degF]Stephanie Dumont STRAP CUTTING MACHINE OPERATOR Work Phone: [place] [address]Rbfrtjvfrm06-35-4761 09:47-0400Body .73 kgStephanie Dumont STRAP CUTTING MACHINE OPERATOR Work Phone: [place] [address]Ejopurwhni86-71-0307 09:47-0400Diastolic blood rusdimob07 mm[Hg]Stephanie Dumont STRAP CUTTING MACHINE OPERATOR Work Phone: [place] [address]Qtrjlrrnpv57-37-7841 09:47-0400Heart rate72 /min Stephanie Dumont STRAP CUTTING MACHINE OPERATOR Work Phone: [place] [address]Xatvyldmsz64-51-3701 09:47-0400Respiratory rate19 /minLisa Dumont STRAP CUTTING MACHINE OPERATOR Work Phone: [place] [address]Mmbkcqujmi00-74-6542 09:47-0783HqS1% (BldA) [Mass fraction]98 %Stephanie Dumont STRAP CUTTING MACHINE OPERATOR Work Phone: [place] [address]Yuowibktyh11-59-4683 09:47-0400Systolic blood mxadgokp129 mm[Hg]Stephanie Dumont STRAP CUTTING MACHINE OPERATOR Work Phone: [place] [address]Lcrdnvlnck25-93-9079 10:56-0400Body ybrdnv338.8 Melchor Dupree MD Work Phone: [facility]08-27-2024 10:56-0400Body mass index (BMI) [Ratio]34.66 kg/p2LybieRinku Dupree MD Work Phone: [place] [address]-27-2024 10:56-0400Body temperature 97.7 [degF]Rinku Dupree MD Work Phone: [facility]08-27-2024 10:56-0400Body hnhnuw54.4 kgRinku Dupree MD Work Phone: [facility]08-27-2024 10:56-0400Diastolic blood mpbjikpu75 mm[Hg]iRnku Dupree MD Work Phone: [facility]08-27-2024 10:56-0400Heart rate74 /min Rinku Dupree MD Work Phone: [facility]08-27-2024 10:56-0400Respiratory rate 16 /minRinku Dupree MD Work Phone: [facility]08-27-2024 10:56-0096LqH0% (BldA) [Mass fraction]98 %Rinku Dupree MD Work Phone: [facility]08-27-2024 10:56-0400Systolic blood dqxndcte713 mm[Hg]Rinku Dupree MD Work Phone: [facility]08-26-2024 10:27-0400Body mass index (BMI) [Ratio]34.19 kg/m2Stephanie Dumont STRAP CUTTING MACHINE OPERATOR Work Phone: [facility] HospitalPcjwpuxiti78-38-8975 10:27-0400Body temperature 97.2 [degF]Stephanie Dumont STRAP CUTTING MACHINE OPERATOR Work Phone: [place] [address]Birojwtrht35-95-3565 10:27-0400Body nargyk19.54 kgLisa Tim STRAP CUTTING MACHINE OPERATOR Work Phone: [place] [address]Smkwbkurcc28-79-2157 10:27-0400Diastolic blood ewuggkzw76 mm[Hg]Stephanie Dumont STRAP CUTTING MACHINE OPERATOR Work Phone: [place] [address]Hrvbfrzomv80-25-4292 10:27-0400Heart rate80 /min Stephanie Dumont STRAP CUTTING MACHINE OPERATOR Work Phone: [place] [address]Oaxworzdds68-24-0888 10:27-5547WfV4% (BldA) [Mass fraction]98 %Stephanie Tim STRAP CUTTING MACHINE OPERATOR Work Phone: [facility] HospitalRelnkdqqqj92-59-4278 10:27-0400Systolic blood zpcqgtyt852 mm[Hg]Stephanie Forderichi STRAP CUTTING MACHINE OPERATOR Work Phone: noK[facility] CenterRyletdezkd85-85-9596 13:21-0400Body yksbmx484.8 cmVjoesph Dupree MD Work Phone: [facility]07-26-2024 13:21-0400Body mass index (BMI) [Ratio]34.54 kg/x7YeorkRinku Dupree MD Work Phone: [facility]07-26-2024 13:21-0400Body temperature 97.7 [degF]Rinku Dupree MD Work Phone: [facility]07-26-2024 13:21-0400Body .1 kgRinku Dupree MD Work Phone: [facility]07-26-2024 13:21-0400Diastolic blood vylemsjk00 mm[Hg]Rinku Dupree MD Work Phone: [facility]07-26-2024 13:21-0400Heart rate76 /min Rinku Dupree MD Work Phone: [facility]07-26-2024 13:21-0400Respiratory rate 16 /minRinku Dupree MD Work Phone: [facility]07-26-2024 13:21-7901KnN9% (BldA) [Mass fraction]100 %Rinku Dupree MD Work Phone: [facility]07-26-2024 13:21-0400Systolic blood vbroslhc311 mm[Hg]Rinku Dupree MD Work Phone: [facility]06-10-2024 14:20-0400Body temperature 97.2 [degF]Susanna Graf MD Work Phone: 1(216)[address]06-10-2024 14:20-0400 Diastolic blood mm[Hg]Susanna Graf MD Work Phone: 1(216)[address] [place], [place] [address]506-10-2024 14:20-0400 Heart rate79 /Annmarie Graf MD Work Phone: 1(216)[address] [place], [place] 9364506-10-2024 14:20-0400 Respiratory rate19 /Annmarie Graf MD Work Phone: 1(216)[address] [place], [place] [address]506-10-2024 14:20-0400 SaO2% (BldA) [Mass fraction]96 %Susanna Graf MD Work Phone: 1(216)[address] [place], [place] [address]506-10-2024 14:20-0400 Systolic blood wjihtypj990 mm[Hg]Susanna Graf MD Work Phone: 1(216)[address] [place], [place] 93[address]506-10-2024 06:28-0400 Body zxaycm449 Ameena Graf MD Work Phone: 1(216)[address] [place], [place] 93[address]506-10-2024 06:28-0400 Body mass index (BMI) [Ratio]33.94 kg/r7EsyjbSusanna Graf MD Work Phone: 1(216)[address] [place], [place] 9364506-10-2024 06:28-0400 Body panngi75.9 kgSusanna Graf MD Work Phone: 1(216)[address] [place], [place] [address]505-17-2024 10:59-0400 Body xbpzyp537.8 cmVjoesph Dupree MD Work Phone: [facility]05-17-2024 10:59-0400Body mass index (BMI) [Ratio]34.78 kg/t4OtmvgRinku Dupree MD Work Phone: [facility]05-17-2024 10:59-0400Body temperature 97.7 [degF]Rinku Dupree MD Work Phone: [facility]05-17-2024 10:59-0400Body yopokb39.7 kgRinku Dupree MD Work Phone: [facility]05-17-2024 10:59-0400Diastolic blood ihrhmigg68 mm[Hg]Rinku Dupree MD Work Phone: [facility]05-17-2024 10:59-0400Heart rate68 /min Rinku Dupree MD Work Phone: [facility]05-17-2024 10:59-0400Respiratory rate 16 /minRinku Dupree MD Work Phone: [facility]05-17-2024 10:59-3582MnO1% (BldA) [Mass fraction]100 %Rinku Dupree MD Work Phone: [facility]05-17-2024 10:59-0400Systolic blood ypecjqhj468 mm[Hg]Rinku Dupree MD Work Phone: [facility]05-07-2024 12:52-0400Body cm Susanna Graf MD Work Phone: [facility]05-07-2024 12:52-0400 Body mass index (BMI) [Ratio]34.28 kg/o8JqinmSusanna Graf MD Work Phone: [facility]05-07-2024 12:52-0400 Body affucvrnlmz51.11 [degF]Susanna Graf MD Work Phone: [facility]05-07-2024 12:52-0400 Body vkjjus64.77 kgSusanna Graf MD Work Phone: [facility]04-05-2024 13:11-0400 Body kjbeet579.8 cmAna Hernandez PA-C Work Phone: [facility]04-05-2024 13:11-0400Body temperature 97.59 [degF]Ana Hernandez PA-C Work Phone: 1(251) 946-3201[address]05-2024 13:11-0400Body tuetxa87 kg Ana Aguilarer PA-C Work Phone: [place] [address]-05-2024 13:11-0400Diastolic blood kadaivng13 mm[Hg]Ana Aguilarer PA-C Work Phone: [place] [address]-05-2024 13:11-0400Heart rate68 /min Ana Aguilarer PA-C Work Phone: [place] [address]-05-2024 13:11-0400Respiratory rate 18 /minAna Mary PA-C Work Phone: [place] [address]-05-2024 13:11-3075KlJ7% (BldA) [Mass fraction]98 %Ana Aguilarer PA-C Work Phone: [place] [address]-05-2024 13:11-0400Systolic blood aetrfeuk843 mm[Hg]Ana Aguilarer PA-C Work Phone: [facility]02-19-2024 14:37-0500Body temperature 97.59 [degF]Rinku Dupree MD Work Phone: [facility]02-19-2024 14:37-0500Body .3 kgRinku Dupree MD Work Phone: [facility]02-19-2024 14:37-0500Diastolic blood tihnszuc13 mm[Hg]Rinku Dupree MD Work Phone: [facility]02-19-2024 14:37-0500Heart rate85 /min Rinku Dupree MD Work Phone: [place] [address]-19-2024 14:37-0500Respiratory rate 16 /minRinku Dupree MD Work Phone: [place] [address]-19-2024 14:37-9110GkU8% (BldA) [Mass fraction]97 %Rinku Dupree MD Work Phone: [facility]02-19-2024 14:37-0500Systolic blood itpdwkdj837 mm[Hg]Rinku Dupree MD Work Phone: [facility]02-14-2024 10:10-0500Body bkpauf971 cm Mar Mayo MD Work Phone: [facility] HospitalXhvoatusax21-32-1247 10:10-0500Body mass index (BMI) [Ratio]33.66 kg/c1EeusfyMar Mayo MD Work Phone: [facility] HospitalRonajpzvkk51-71-3955 10:10-0500Body hzyccz26.18 kgMar Mayo MD Work Phone: [facility] HospitalAtqoqglcst92-04-2750 10:10-0500Diastolic blood wzuicbbj21 mm[Hg]Mar Mayo MD Work Phone: [facility] HospitalYilyohuqva85-00-2801 10:10-0500Systolic blood mtmpowzy441 mm[Hg]Mar Mayo MD Work Phone: [facility] HospitalMuzbxqwjdg83-11-6661 10:20-0500Body .02 cmAbdul Tyrel Other [facility] [employer] Other 12-20-2023 10:20-0500Body mass index (BMI) [Ratio] 34.04 kg/j2Zvjbl Tyrel Other [facility] [employer] Other 12-20-2023 10:20-0500Body ghiivzhpnqs17.7 [degF]Gilson Tyrel Other [employer] Other 12-20-2023 10:20-0500Body .18 kgAbdul Tyrel Other [employer] Other 12-20-2023 10:20-0500Diastolic blood jcaqozpk59 mm[Hg] Gilson [facility]rel [facility] [employer] Other 12-20-2023 10:20-0500Respiratory rate18 /minAbdul Tyrel Other [facility] [employer] Other 12-20-2023 10:20-3637VtL7% (BldA) [Mass fraction]96 % Gilson Tyrel Other [place] [employer] Other 12-20-2023 10:20-0500Systolic blood eoouvoqf224 mm[Hg] Gilson [facility]rel [facility] [employer] Other 11-27-2023 10:08-0500Body scxzoi647.8 cmMindy Mary PA-C Work Phone: [place] [address]-27-2023 10:08-0500Body temperature 97 [degF]Ana Mary PA-C Work Phone: [place] [address]-27-2023 10:08-0500Body ayfcts75.27 kgMindy Mary PA-C Work Phone: [place] [address]-27-2023 10:08-0500Diastolic blood viqfwlcc10 mm[Hg]Ana Mary PA-C Work Phone: [place] [address]-27-2023 10:08-0500Heart rate76 /min Ana Mary PA-C Work Phone: [place] [address]-27-2023 10:08-0500Respiratory rate 16 /minMindy Mary PA-C Work Phone: [place] [address]-27-2023 10:08-0186CtO3% (BldA) [Mass fraction]97 %Ana Mary PA-C Work Phone: [place] [address]-27-2023 10:08-0500Systolic blood yhtrzqey640 mm[Hg]Ana Hernandez PA-C Work Phone: [facility]10-12-2023 10:11-0400Body cwmlob122.8 Melchor Dupree MD Work Phone: [facility]10-12-2023 10:11-0400Body temperature 97.81 [degF]Rinku Dupree MD Work Phone: [facility]10-12-2023 10:11-0400Body jwvyys30 kg Rinku Dupree MD Work Phone: [facility]10-12-2023 10:11-0400Diastolic blood abpbzzjc85 mm[Hg]Rinku Dupree MD Work Phone: [facility]10-12-2023 10:11-0400Heart rate72 /min Rinku Dupree MD Work Phone: [facility]10-12-2023 10:11-0400Respiratory rate 18 /minRinku Dupree MD Work Phone: [facility]10-12-2023 10:11-8136SvP4% (BldA) [Mass fraction]98 %Rinku Dupree MD Work Phone: [facility]10-12-2023 10:11-0400Systolic blood wnbwxljy076 mm[Hg]Rinku Dupree MD Work Phone: [facility]08-31-2023 14:03-0400Body uucwzf262.8 Melchor Dupree MD Work Phone: [facility]08-31-2023 14:03-0400Body temperature 97.59 [degF]Rinku Dupree MD Work Phone: [facility]08-31-2023 14:03-0400Body .27 kgRinku Dupree MD Work Phone: [facility]08-31-2023 14:03-0400Diastolic blood mm[Hg]Rinku Dupree MD Work Phone: [facility]08-31-2023 14:03-0400Heart rate71 /min Rinku Dupree MD Work Phone: [facility]08-31-2023 14:03-0400Respiratory rate 16 /minRinku Dupree MD Work Phone: [facility]08-31-2023 14:03-3593GvU7% (BldA) [Mass fraction]95 %Rinku Dupree MD Work Phone: [facility]08-31-2023 14:03-0400Systolic blood mylgfend912 mm[Hg]Rinku Dupree MD Work Phone: [facility]07-20-2023 14:48-0400Body axrqae804.8 cmVjoesph Dupree MD Work Phone: [facility]07-20-2023 14:48-0400Body temperature 97.59 [degF]Rinku Dupree MD Work Phone: [facility]07-20-2023 14:48-0400Body .09 kgRinku Dupree MD Work Phone: [facility]07-20-2023 14:48-0400Diastolic blood nprwqloi88 mm[Hg]Rinku Dupree MD Work Phone: [facility]07-20-2023 14:48-0400Heart rate75 /min Rinku Dupree MD Work Phone: [facility]07-20-2023 14:48-0400Respiratory rate 18 /minRinku Dupree MD Work Phone: [facility]07-20-2023 14:48-3303GgZ0% (BldA) [Mass fraction]98 %Rinku Dupree MD Work Phone: [facility]07-20-2023 14:48-0400Systolic blood vleldnob608 mm[Hg]Rinku Dupree MD Work Phone: [facility]06-08-2023 13:52-0400Body gdikai261.8 Melchor Dupree MD Work Phone: [facility]06-08-2023 13:52-0400Body temperature 97.5 [degF]Rinku Dupree MD Work Phone: [facility]06-08-2023 13:52-0400Body ggxsyo91.36 kgRinku Dupree MD Work Phone: [facility]06-08-2023 13:52-0400Diastolic blood pressure8 mm[Hg]Rinku Dupree MD Work Phone: [facility]06-08-2023 13:52-0400Heart rate64 /min Rinku Dupree MD Work Phone: [facility]06-08-2023 13:52-0400Respiratory rate 16 /minRinku Dupree MD Work Phone: [facility]06-08-2023 13:52-1658JrC8% (BldA) [Mass fraction]96 %Rinku Dupree MD Work Phone: [facility]06-08-2023 13:52-0400Systolic blood qmlkjyqm414 mm[Hg]Rinku Dupree MD Work Phone: [facility]04-20-2023 14:56-0400Body tkuoue218.8 Melchor Dupree MD Work Phone: [facility]04-20-2023 14:56-0400Body temperature 97.39 [degF]Rinku Dupree MD Work Phone: [facility]04-20-2023 14:56-0400Body .36 kgRinku Dupree MD Work Phone: [facility]04-20-2023 14:56-0400Diastolic blood exoxyrum30 mm[Hg]Rinku Dupree MD Work Phone: [facility]04-20-2023 14:56-0400Heart rate71 /min Rinku Dupree MD Work Phone: [facility]04-20-2023 14:56-0400Respiratory rate 18 /minRinku Dupree MD Work Phone: [facility]04-20-2023 14:56-5428OyL6% (BldA) [Mass fraction]98 %Rinku Dupree MD Work Phone: [facility]04-20-2023 14:56-0400Systolic blood lcbiqfat387 mm[Hg]Rinku Dupree MD Work Phone: [facility]03-09-2023 15:20-0500Body ozvqrc012.8 cmVjoesph Dupree MD Work Phone: [facility]03-09-2023 15:20-0500Body temperature 97.11 [degF]Rinku Dupree MD Work Phone: [facility]03-09-2023 15:20-0500Body htgyva02.36 kgRinku Dupree MD Work Phone: [facility]03-09-2023 15:20-0500Diastolic blood jcqazuys54 mm[Hg]Rinku Dupree MD Work Phone: [facility]03-09-2023 15:20-0500Heart rate75 /min Rinku Dupree MD Work Phone: [facility]03-09-2023 15:20-0500Respiratory rate 16 /minRinku Dupree MD Work Phone: [facility]03-09-2023 15:20-9334DuM5% (BldA) [Mass fraction]97 %Rinku Dupree MD Work Phone: [facility]03-09-2023 15:20-0500Systolic blood ucfvdurn973 mm[Hg]Rinku Dupree MD Work Phone: [facility]03-01-2023 10:20-0500Body kyqwbn614.02 cmAbdul Tyrel Other [place] [employer] Other 03-01-2023 10:20-0500Body mass index (BMI) [Ratio] 33.69 kg/m0Fkqjv Tyrel Other [facility] Other [id number] 10:20-0500Body zizrromhdbk93.4 [degF]Gilson Tyrel Other [place] [employer] Other 931692-17-0317 10:20-0500Body oeleir06.[address] [facility] Other 03-01-2023 10:20-0500Diastolic blood mm[Hg] Gilson Tyrel Other [place] [employer] Other 03-01-2023 10:20-0500Respiratory rate18 /minAbdul Tyrel Other [place] [employer] Other 03-01-2023 10:20-5568NfJ8% (BldA) [Mass fraction]98 % Gilson Tyrel Other [employer] Other 03-01-2023 10:20-0500Systolic blood mnhrsqan074 mm[Hg] Gilson Tyrel Other [employer] Other 01-26-2023 13:58-0500Body .8 cmJayden Connelly DEVELOPING MACHINE TENDER.DRUG ABUSE WORKER Work Phone: [facility]01-26-2023 13:58-0500Body temperature 97.39 [degF]Jayden Connelly DEVELOPING MACHINE TENDER.DRUG ABUSE WORKER Work Phone: [facility]01-26-2023 13:58-0500Body kxuhjv53.37 kgJayden Connelly DEVELOPING MACHINE TENDER.DRUG ABUSE WORKER Work Phone: [facility]01-26-2023 13:58-0500Diastolic blood uhznsipv94 mm[Hg]Jayden Connelly DEVELOPING MACHINE TENDER.DRUG ABUSE WORKER Work Phone: 1(059)4-[address] [place], [place] 4712501-26-2023 13:58-0500Heart rate76 /min Jayden Connelly DEVELOPING MACHINE TENDER.DRUG ABUSE WORKER Work Phone: [address] [place], [place] 2861701-26-2023 13:58-0500Respiratory rate 16 /minJayden Connelly DEVELOPING MACHINE TENDER.DRUG ABUSE WORKER Work Phone: [phone]01-26-2023 13:58-0947OaY8% (BldA) [Mass fraction]98 %Jayden Connelly DEVELOPING MACHINE TENDER.DRUG ABUSE WORKER Work Phone: [facility]01-26-2023 13:58-0500Systolic blood eksesklj104 mm[Hg]Jayden Connelly DEVELOPING MACHINE TENDER.DRUG ABUSE WORKER Work Phone: [facility]12-15-2022 13:57-0500Body .8 Melchor Dupree MD Work Phone: [facility]12-15-2022 13:57-0500Body temperature 97.59 [degF]Rinku Dupree MD Work Phone: [facility]12-15-2022 13:57-0500Body zvbluv01.27 kgRinku Dupree MD Work Phone: [facility]12-15-2022 13:57-0500Diastolic blood leuvohdo16 mm[Hg]Rinku Dupree MD Work Phone: [facility]12-15-2022 13:57-0500Heart rate66 /min Rinku Dupree MD Work Phone: [facility]12-15-2022 13:57-0500Respiratory rate 16 /minRinku Dupree MD Work Phone: [facility]12-15-2022 13:57-9317AvM0% (BldA) [Mass fraction]100 %Rinku Dupree MD Work Phone: [facility]12-15-2022 13:57-0500Systolic blood wlrbsevq190 mm[Hg]Rinku Dupree MD Work Phone: 1([phone])[facility]35[facility]11-03-2022 14:19-0400Diastolic blood mm[Hg]Jayden Connelly APRN.DRUG ABUSE WORKER Work Phone: [phone])[facility] [place], [place] 4712511-03-2022 14:19-0400Systolic blood mm[Hg]Jayden Connelly APRN.DRUG ABUSE WORKER Work Phone: [phone] [place], [place] 4712511-03-2022 14:13-0400Body lrjfly349.8 cmJayden Connelly APRN.DRUG ABUSE WORKER Work Phone: [phone]11-03-2022 14:13-0400Body temperature 97.81 [degF]Jayden Connelly APRN.DRUG ABUSE WORKER Work Phone: 1([phone])081-[address] [place], [place] 4712511-03-2022 14:13-0400Body .27 kgJayden Connelly APRN.DRUG ABUSE WORKER Work Phone: [facility]11-03-2022 14:13-0400Heart rate76 /min Jayden Connelly APRN.DRUG ABUSE WORKER Work Phone: [place] [address]-03-2022 14:13-0400Respiratory rate 18 /minJayden Connelly APRN.DRUG ABUSE WORKER Work Phone: [facility]11-03-2022 14:13-7272TfF0% (BldA) [Mass fraction]98 %Jayden Connelly APRN.DRUG ABUSE WORKER Work Phone: [phone]09-22-2022 13:55-0400Body vanbii788.8 cmVjoesph Dupree MD Work Phone: [facility]09-22-2022 13:55-0400Body temperature 97.7 [degF]Rinku Dupree MD Work Phone: [facility]09-22-2022 13:55-0400Body fafumb56.72 kgRinku Dupree MD Work Phone: [facility]09-22-2022 13:55-0400Diastolic blood ejyouffl98 mm[Hg]Rinku Dupree MD Work Phone: [facility]09-22-2022 13:55-0400Heart rate66 /min Rinku Dupree MD Work Phone: [facility]09-22-2022 13:55-0400Respiratory rate 16 /minRinku Dupree MD Work Phone: [facility]09-22-2022 13:55-1779RdJ9% (BldA) [Mass fraction]95 %Rinku Dupree MD Work Phone: [facility]09-22-2022 13:55-0400Systolic blood xiokwvay032 mm[Hg]Rinku Dupree MD Work Phone: [facility]08-05-2022 13:41-0400Body owylxv597.8 cmJayden Connelly DEVELOPING MACHINE TENDER.DRUG ABUSE WORKER Work Phone: [facility]08-05-2022 13:41-0400Body temperature 97.3 [degF]Jayden Connelly DEVELOPING MACHINE TENDER.DRUG ABUSE WORKER Work Phone: [facility]08-05-2022 13:41-0400Body jtsliy11.18 kgJayden Connelly DEVELOPING MACHINE TENDER.DRUG ABUSE WORKER Work Phone: [facility]08-05-2022 13:41-0400Diastolic blood mkdwurgm73 mm[Hg]Jayden Connelly DEVELOPING MACHINE TENDER.DRUG ABUSE WORKER Work Phone: [facility]08-05-2022 13:41-0400Heart rate79 /min Jayden Connelly APRN.DRUG ABUSE WORKER Work Phone: [facility]08-05-2022 13:41-0400Respiratory rate 16 /minJayden Connelly APRN.DRUG ABUSE WORKER Work Phone: [facility]08-05-2022 13:41-3161YtJ1% (BldA) [Mass fraction]99 %Jayden Connelly APRN.DRUG ABUSE WORKER Work Phone: [facility]08-05-2022 13:41-0400Systolic blood sbzzetee578 mm[Hg]Jayden Connelly APRN.DRUG ABUSE WORKER Work Phone: [facility]06-10-2022 14:41-0400Body mcdoca833.8 cmJayden Connelly APRN.DRUG ABUSE WORKER Work Phone: [facility]06-10-2022 14:41-0400Body temperature 97.3 [degF]Jayden Connelly APRN.DRUG ABUSE WORKER Work Phone: [facility]06-10-2022 14:41-0400Body urgwao89.64 kgJayden Connelly APRN.DRUG ABUSE WORKER Work Phone: [facility]06-10-2022 14:41-0400Diastolic blood guattarb35 mm[Hg]Jayden Connelly APRN.DRUG ABUSE WORKER Work Phone: [facility]06-10-2022 14:41-0400Heart rate75 /min Jayden Connelly APRN.DRUG ABUSE WORKER Work Phone: [facility]06-10-2022 14:41-0400Respiratory rate 16 /minJayden Connelly APRN.DRUG ABUSE WORKER Work Phone: [facility]06-10-2022 14:41-7754VsW8% (BldA) [Mass fraction]96 %Jayden Connelly APRN.DRUG ABUSE WORKER Work Phone: [facility]06-10-2022 14:41-0400Systolic blood rdozrpxj696 mm[Hg]Jayden Connelly APRN.CNP Work Phone: [facility]05-04-2022 15:00-0400Body axoiuu139.02 cmAbdul Tyrel Other [employer] Other [id number] 15:00-0400Body mass index (BMI) [Ratio] 34.18 kg/e6Oxohv Tyrel Other [employer] Other 2-600785-60216984-88-2416 15:00-0400Body dudonlgzatw23.1 [degF]Gilson Tyrel Other [employer] Other Phone: [phone] 15:00-0400Body nrejfc18.54 kgAbdul Tyrel Other [employer] Other 3-054579-10702775-63-2789 15:00-0400Diastolic blood qntbaheq31 mm[Hg] Gilson Tyrel Other [employer] Other 05-04-2022 15:00-0400Respiratory rate18 /minAbdul Tyrel Other [employer] Other 1-665679-40312810-83-3301 15:00-4720JoQ5% (BldA) [Mass fraction]96 % Gilson Tyrel Other [employer] Other 05-04-2022 15:00-0400Systolic blood sokfhitj466 mm[Hg] Gilson Tyrel Other [employer] Other [id number] 11:27-0400Body dencdk618.8 Melchor Dupree MD Work Phone: [facility]04-21-2022 11:27-0400Body temperature 97.39 [degF]Rinku Dupree MD Work Phone: [facility]04-21-2022 11:27-0400Body rmyass52.82 kgRinku Dupree MD Work Phone: [facility]04-21-2022 11:27-0400Diastolic blood oosuzkju63 mm[Hg]Rinku Dupree MD Work Phone: [facility]04-21-2022 11:27-0400Heart rate75 /min Rinku Dupree MD Work Phone: [facility]04-21-2022 11:27-0400Respiratory rate 16 /minRinku Dupree MD Work Phone: [facility]04-21-2022 11:27-5304BcD1% (BldA) [Mass fraction]96 %Rinku Dupree MD Work Phone: [facility]04-21-2022 11:27-0400Systolic blood uopejjuz577 mm[Hg]Rinku Dupree MD Work Phone: [facility] Encounters Encounter DateEncounter TypeCare ProviderFacilityStart: 05-09-2025 End: 94-67-7858ffvqwrwagnCVTJC ABHYANKARFacility:[facility]: 05-08-2025 End: 48-07-5992wtboauhkygCdow J Aichholz STRAP CUTTING MACHINE OPERATOR-C Work Phone: [phone]-[facility] SurgStart: 05-08-2025 End: 46-90-5382Ebdckki encounter procedureMarodríguez Rivera MD-[facility] Work Phone: Start: 04-30-2025 End: 88-30-6505gorxobgjgySdcc J Aichholz STRAP CUTTING MACHINE OPERATOR-C Work Phone: -[facility] [place]Start: 04-30-2025 End: 81-48-8671Xokyvpn encounter procedureGilson Arriola MD-[facility] Ne[facility] [place] Work Phone: Start: 04-25-2025 End: 35-91-6549ayrvrxfyjgKOLVW [facility]: 04-24-2025 End: 64-22-1762vkcetdyqupXxsr J Aichholz STRAP CUTTING MACHINE OPERATOR-C Work Phone: [facility] Work Phone: Start: 04-24-2025 End: 18-82-0285Yrfkpkc encounter procedureStephanie Dumont STRAP CUTTING MACHINE OPERATOR-C-[facility] Family Medicine [place] Work Phone: Start: 04-23-2025 End: 77-04-0949Mlxglvronny Mayo MD Work Phone: noms [place] OtolaryngologyStart: 04-23-2025 End: 31-30-3790Uapqzhdriss Mayo MD Work Phone: NOTA Dejan OtolaryngologyStart: 93-78-9407Blo-patient / Non-visitGilson Arriola MD-[facility] Work Phone: Start: 04-23-2025 End: 04-56-1706Hqxeyu outpatient visit 15 minutesMar Mayo MD Work Phone: NOKO Dejan OtolaryngologyComment on above:Acute glossitis (Primary Dx); Thyroid noduleStart: 04-23-2025 End: 26-07-3854lohaxdoyblIBXBAJ H TIMMISNot AvailableStart: 04-11-2025 End: 24-85-3466kybpjfxgtvTONOM MARTINEZFacility:[facility]: 04-02-2025 End: 81-54-9834Eyfxvjronny Mayo MD Work Phone: noms Dejan OtolaryngologyStart: 04-02-2025 End: 39-39-8127Jfhuwmdriss Mayo MD Work Phone: noms Dejan OtolaryngologyStart: 04-02-2025 End: 41-08-2527Dhuogtyox encounterMar Mayo MD Work Phone: noms Dejan OtolaryngologyComment on above:insurance won't cover rxStart: 04-02-2025 End: 11-03-9571Wpkxju outpatient visit 15 minutesMar Mayo MD Work Phone: noms Dejan OtolaryngologyComment on above:Thyroid nodule (Primary Dx)Start: 04-02-2025 End: 26-35-4844wwikkmtfmsWNGKHW H TIMMISNot AvailableStart: 03-28-2025 End: 36-17-4539cfmwwbjdwvEPUOV ABHYANKARFacility:[facility] Hospital[facility]: 03-19-2025 End: 31-81-4019Zuwykiswx Result EncounterMar Mayo MD Work Phone: noms External Department UnsolicitedStart: 03-19-2025 End: 01-74-3689Ahfnykswu Result EncounterMar Mayo MD Work Phone: noms External Department UnsolicitedStart: 03-14-2025 End: 13-07-8177iroooxvzawBck/[place] Work Phone: Hematology/OncologyComment on above:Megaloblastic anemia due to vitamin B12 deficiency (Primary Dx); Abnormal weight loss; Other systemic lupus erythematosus with other organ involvement (HCC); Thrombocytopenia; Chronic ITP (idiopathic thrombocytopenia) (HCC); 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)Start: 03-13-2025 End: 57-29-9521vicdckrdlrNaau J Aichholz Work Phone: [facility] Work Phone: Start: 03-13-2025 End: 80-81-0039Inkhnbv encounter Jose Dumont STRAP CUTTING MACHINE OPERATOR-C-[facility] Family Medicine [place] Work Phone: Start: 02-14-2025 End: 36-20-3904Guzpood encounter procedureJayden Connelly APRN.CNP Work Phone: Hematology/OncologyStart: 02-14-2025 End: 80-17-1155kvyofptgxfKivxm Martinez APRN.DRUG ABUSE WORKER Work Phone: Hematology/OncologyComment on above:Megaloblastic anemia due to vitamin B12 deficiency (Primary Dx); 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); Thrombocytopenia; Chronic ITP (idiopathic thrombocytopenia) (HCC); Essential hypertension; Obstructive sleep apnea syndrome; Abdominal aortic aneurysm (AAA) without rupture, unspecified partStart: 02-05-2025 End: 62-09-0942cglyhjcvzaDGZQS E MOWRYSt. [facility] Start: 02-05-2025 End: 89-33-0301Sdydydhkle hospital visit by Ana María Graf MD Work Phone: uh [facility] ORComment on above: Cholesteatoma of left ear (Primary Dx); 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Start: 01-31-2025 End: 30-67-1983ojsrcchbyyAjb/[place] Work Phone: Hematology/OncologyComment on above: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) (Primary Dx)Start: 01-28-2025 End: 26-36-0313Vdbqwiggh encounterDesirae Pimentel RNHematology/OncologyComment on above:Lab OrdersStart: 01-27-2025 End: 93-93-2231byrnbinpwzOqff J Aichholz Work Phone: [facility] Work Phone: Start: 01-27-2025 End: 82-28-3763Sdphvrz encounter Meaghan Arriola MD-[facility] Work Phone: Start: 01-21-2025 End: 56-92-7866Vqeoaj Amparo Dumont NP Work Phone: NOTK CWM FMComment on above:Abdominal aortic aneurysm (AAA) without rupture, unspecified part (Primary Dx)Start: 09-55-5580xcskahhorf SUSANNA [facility] Presbyteriantart: 01-17-2025 End: 04-66-5103eiynbpyarkUxk/[place] Work Phone: Hematology/OncologyComment on above:Megaloblastic anemia due to vitamin B12 deficiency (Primary Dx); Abnormal weight loss; Other systemic lupus erythematosus with other organ involvement (HCC); Thrombocytopenia; Chronic ITP (idiopathic thrombocytopenia) ([facility]); 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 chronic kidney disease ([facility])Start: 01-15-2025 End: 92-85-4938Arafzg outpatient visit 15 minutesStephanie Dumont STRAP CUTTING MACHINE OPERATOR Work Phone: noms CWM FMComment on above:Weakness of both legs (Primary Dx); Chronic kidney disease, stage 3b ([facility]-HCC); Obesity (BMI 30-39.9); Tobacco dependence; Lumbar spondylosisStart: 01-15-2025 End: 17-73-2842ftlsxijdpkLADR AICHHOLZNot AvailableStart: 01-15-2025 End: 76-42-2303Jyrzeq flowsheetLisa Aichholz STRAP CUTTING MACHINE OPERATOR Work Phone: noms CWM FMStart: 01-15-2025 End: 62-50-1188Rkgqpa flowsheetLisa Aichholz STRAP CUTTING MACHINE OPERATOR Work Phone: noms CWM FMStart: 01-15-2025 End: 96-52-2052Dsggqqleo Result EncounterLisa Aichholz STRAP CUTTING MACHINE OPERATOR Work Phone: noms External Department UnsolicitedStart: 01-06-2025 End: 16-14-3292Eygemc flowsheetLisa Aichholz STRAP CUTTING MACHINE OPERATOR Work Phone: noms CWM FMStart: 01-06-2025 End: 56-90-9846Lyqigy flowsheetLisa Aichholz STRAP CUTTING MACHINE OPERATOR Work Phone: noms CWM FMStart: 01-06-2025 End: 72-06-4642Nnpstundcqdk care manage srvc 14 day dischargeStephanie Dumont STRAP CUTTING MACHINE OPERATOR Work Phone: noms CWM FMComment on above:DARYL (acute kidney injury) (Primary Dx); Essential hypertension ; Chronic kidney disease, stage 3b ([facility]-HCC); Diarrhea, unspecified type; Tobacco dependenceStart: 01-06-2025 End: 84-95-8188qmwatmkngxTFVF AICHHOLZNot AvailableStart: 01-03-2025 End: 66-35-6450Ualtpug encounter Moraima Connelly APRN.CNP Work Phone: Hematology/OncologyStart: 01-03-2025 End: 94-61-5613MitkzdUuuep Abhyankar MD Work Phone: Hematology/OncologyComment on above:Refill Request Start: 01-03-2025 End: 25-41-6328cveeahvpyvTei/[place] Work Phone: Hematology/OncologyComment on above: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) (Primary Dx)Malaise and fatigue (Primary Dx); 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); Megaloblastic anemia due to vitamin B12 deficiency; Thrombocytopenia; Chronic ITP (idiopathic thrombocytopenia) ([facility])Start: 01-01-2025 End: 89-81-6217VcdhugAuky Aichholz STRAP CUTTING MACHINE OPERATOR Work Phone: NOES CWM FMComment on above:Age-related osteoporosis without current pathological fracture (Primary Dx)Start: 12-31-2024 End: 16-18-8277WfhnmcFmca Aichholz STRAP CUTTING MACHINE OPERATOR Work Phone: NOM[facility] CWM FMComment on above:Coronary artery disease involving 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Start: 12-25-2024 End: 40-20-8408Eldfpf flowsheetStephanie Dumont STRAP CUTTING MACHINE OPERATOR Work Phone: N[facility] CWM FMStart: 12-25-2024 End: 79-14-7535Fcwyzb flowsheetStephanie Dumont STRAP CUTTING MACHINE OPERATOR Work Phone: noms CWM FMStart: 12-25-2024 End: 99-21-6888Zpzzzqkex Result EncounterGeneric External Data ProviderNOMS External Department UnsolicitedStart: 12-25-2024 End: 96-65-9647Rckssm outpatient visit 25 minutesStephanie Forderichi STRAP CUTTING MACHINE OPERATOR Work Phone: noms CWM FMComment on above:Diarrhea, unspecified type (Primary Dx); Chronic kidney disease, stage 3b (CMS-HCC); Coronary artery disease involving 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 ; Essential hypertension ; Obesity (BMI 30-39.9); Pre-diabetes; Chronic ITP (idiopathic thrombocytopenia) (HCC); Tobacco dependence; Thyroid noduleStart: 12-25-2024 End: 94-66-1949rlgsjlrnufHHTE Alba AvailableStart: 12-20-2024 End: 67-83-3185zdsygkbvmpRse/[place] Work Phone: Hematology/OncologyComment on above: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) (Primary Dx); Megaloblastic anemia due to vitamin B12 deficiency; Abnormal weight loss; Other systemic lupus erythematosus with other organ involvement (HCC); Thrombocytopenia; Chronic ITP (idiopathic thrombocytopenia) (HCC)Start: 12-18-2024 End: 38-52-6755ewhznqwbauOHXDM E MOWRYProMedica [facility] Presbyteriantart: 75-66-4892Hmnbkrewl for other preprocedural examinationLISA TIMProMedica Seaford HospitalStart: 12-12-2024 End: 35-04-1749Rmtjmgpxx Result EncounterLisa Maurisiorichi STRAP CUTTING MACHINE OPERATOR Work Phone: noms External Department UnsolicitedStart: 12-12-2024 End: 06-40-3628Hrjoagqtt Result EncounterLisa Maurisiorichi STRAP CUTTING MACHINE OPERATOR Work Phone: noms External Department UnsolicitedStart: 2024 End: 68-28-2052yrgaekonooCxc/[place] Work Phone: Hematology/OncologyComment on above: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) (Primary Dx)Start: 11-26-2024 End: 27-30-7427Reqsbe outpatient visit 25 minutesSusanna Graf MD Work Phone: uh [facility] HospitalComment on above:Cholesteatoma of left ear (Primary Dx); 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; Preoperative clearance; ThrombocytopeniaStart: 11-26-2024 End: 24-56-7973Zrdogdjlfmxk stateSjarrett Graf MD Work Phone: [facility]Start: 11-26-2024 End: 33-78-1466kcetlsohwtYEPJFYLUniversity Hospitals Portage Medical Centertart: 11-22-2024 End: 28-87-8655Stppant evaluation of patient and reportMa Nurse Clarence Gaona Work Phone: Hematology/OncologyComment on above:Megaloblastic anemia due to vitamin B12 deficiency (Primary Dx); Thrombocytopenia; Abnormal weight loss; Chronic ITP (idiopathic thrombocytopenia) (HCC)Start: 11-22-2024 End: 19-09-1771wikgqahvimDGXQI ABHYANKARFacility:[facility] Hospitaltart: 11-22-2024 End: 40-89-3946Jlbymd outpatient visit 25 Maddie Dupree MD Work Phone: Hematology/OncologyComment on above:Chronic ITP (idiopathic thrombocytopenia) (HCC) (Primary Dx); Stage 3b chronic kidney disease (HCC); 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); Megaloblastic anemia due to vitamin B12 deficiency; Systemic lupus erythematosus, unspecified SLE type, unspecified organ involvement status (HCC)Start: 11-22-2024 End: 25-07-8552rdedqgpijxTHPML ABHYANKARFacility:[facility] Hospitaltart: 11-06-2024 End: 71-83-7453Ummxqa WorkKatheryn CLIFTONWHematology/OncologyStart: 10-11-2024 End: 49-04-8314Phkatpn evaluation of patient and reportMa Nurse Cla[place] Gaona Work Phone: Hematology/OncologyComment on above:Megaloblastic anemia due to vitamin B12 deficiency (Primary Dx); Thrombocytopenia; Abnormal weight loss; Chronic ITP (idiopathic thrombocytopenia) (HCC)Start: 10-11-2024 End: 95-72-3330Oynbcr outpatient visit 25 Janelle Pitts DEVELOPING MACHINE TENDER.DRUG ABUSE WORKER Work Phone: Hematology/OncologyComment on above:Megaloblastic anemia due to vitamin B12 deficiency (Primary Dx); ThrombocytopeniaStart: 10-11-2024 End: 33-50-1872wzxkejsqlbMFKCO ABHYANKARFacility:[facility]tart: 10-07-2024 End: 35-28-5461JzixiqLnklLexi Dumont NP Work Phone: noms CWM FMComment on above:Coronary artery disease involving 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 ([facility]/HCC)Start: 09-25-2024 End: 12-21-3963jkwfppcduhAWZLDP H TIMMISNot AvailableStart: 09-17-2024 End: 00-69-2648Kqvzdnwgc Result EncounterGeneric External Data ProviderNOMS External Department UnsolicitedStart: 09-17-2024 End: 27-32-0594Pdfwbldix Result EncounterGeneric External Data ProviderNOMS External Department UnsolicitedStart: 08-30-2024 End: 64-37-1859Nscyjen evaluation of patient and reportMa Nurse Clarence Gaona Work Phone: Hematology/OncologyComment on above:Megaloblastic anemia due to vitamin B12 deficiency (Primary Dx); Thrombocytopenia (HCC); Abnormal weight loss; Chronic ITP (idiopathic thrombocytopenia) (HCC)Start: 08-30-2024 End: 09-68-3820Kkiqfo outpatient visit 25 minutesLi Pitts DEVELOPING MACHINE TENDER.DRUG ABUSE WORKER Work Phone: Hematology/OncologyComment on above:Megaloblastic anemia due to vitamin B12 deficiency (Primary Dx); Thrombocytopenia (HCC); Chronic ITP (idiopathic thrombocytopenia) (HCC)Start: 08-30-2024 End: 16-48-7994rejrhcfgbfPFJMT ABHYANKARFacility:[facility] Hospitaltart: 08-21-2024 End: 33-44-2630zuttbgpwnfHervujzypMer[facility] Work Phone: Start: 08-21-2024 End: 30-32-2091Cssyhaz encounter procedureCaromont Health Physician [facility] Nephrology Cristina Reich Work Phone: Start: 08-15-2024 End: 19-43-4923Elehty flowsheetStephanie Dumont STRAP CUTTING MACHINE OPERATOR Work Phone: noms CWM FMStart: 08-15-2024 End: 10-14-3297Ybvapt flowsheetLisa Kwanhholz STRAP CUTTING MACHINE OPERATOR Work Phone: noms CWM FMStart: 08-15-2024 End: 11-22-7097Rfrtqe outpatient visit 25 minutesLisa Tim STRAP CUTTING MACHINE OPERATOR Work Phone: noms CWM FMComment on above:Essential hypertension (CMS/HCC) (Primary Dx); Systemic lupus erythematosus, unspecified (CMS/HCC); Qualitative platelet defects (CMS/HCC); Chronic kidney disease, stage 3a (HCC) (CMS/HCC); Immune thrombocytopenic purpura (CMS/HCC); Secondary pulmonary arterial hypertension (CMS/HCC); Coronary artery disease involving 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 (CMS/HCC); PAH (pulmonary artery hypertension) (CMS/HCC); Obesity (BMI 30-39.9); Pre-diabetes; Tobacco dependence; Multiple lung nodules on CT; Family history of cancerStart: 08-15-2024 End: 36-38-7589ispxsuoidaBYAK AICHHOLZNot AvailableStart: 08-12-2024 End: 51-26-7483upgzoxwzrvAQLDL QADIRProMedica Seaford HospitalStart: 07-23-2024 End: 53-56-9301Emnbaolgh encounterKrista Harden [facility] Work Phone: [facility] PharmacyComment on above: Medication Assistance Program; Medication Authorization ([employer] APPROVED) Start: 07-22-2024 End: 14-47-4284utxkxlyahdLmlvrmk McKitrick [facility] Work Phone: [facility] -3Start: 07-22-2024 End: 34-26-7052G-mail encounter from Patricia Harden [facility] Work Phone: [facility] -3Start: 07-19-2024 End: 68-51-8368AtduwnHrpwjSanna Connelly APRN.CNP Work Phone: Hematology/OncologyComment on above:Refill Request Start: 07-18-2024 End: 39-79-1655bawrjbsaccLDXMDWJYTFL [facility] Start: 07-11-2024 End: 92-92-6723Gsiwqtr evaluation of patient and reportMa Nurse Clarence Gaona Work Phone: Hematology/OncologyComment on above:Megaloblastic anemia due to vitamin B12 deficiency (Primary Dx); Thrombocytopenia (HCC); Abnormal weight loss; Chronic ITP (idiopathic thrombocytopenia) (HCC)Start: 07-11-2024 End: 41-27-7911Lvzmgg outpatient visit 25 minutesLi Pitts APRN.CNP Work Phone: Hematology/OncologyComment on above:Megaloblastic anemia due to vitamin B12 deficiency (Primary Dx); Chronic ITP (idiopathic thrombocytopenia) (HCC)Start: 07-11-2024 End: 93-94-4237kylalqgtslGNFQK ABHYANKARFacility:[facility]oples Hospitaltart: 67-77-0243avxvbmkfheVWLLSDGIWAO [facility] Start: 05-30-2024 End: 07-67-9077Waprcqv evaluation of patient and reportMa Nurse Clarence Gaona Work Phone: Hematology/OncologyComment on above:Megaloblastic anemia due to vitamin B12 deficiency (Primary Dx); Thrombocytopenia (HCC); Lupus; Abnormal weight loss; Chronic ITP (idiopathic thrombocytopenia) (HCC)Start: 05-30-2024 End: 46-09-8356Hehwmx outpatient visit 15 minutesRinku Dupree MD Work Phone: Hematology/OncologyComment on above:Megaloblastic anemia due to vitamin B12 deficiency (Primary Dx); Chronic ITP (idiopathic thrombocytopenia) (HCC); Thrombocytopenia (HCC); Hyperglycemia; Obstructive sleep apnea syndromeStart: 05-30-2024 End: 85-12-6696denfcbvzjyPKTFH ABHYANKARFacility:[facility]oples Hospitaltart: 05-29-2024 End: 75-71-6298Xaohxcveg Result EncounterLisa Aichholz STRAP CUTTING MACHINE OPERATOR Work Phone: noms External Department UnsolicitedStart: 05-29-2024 End: 23-40-5324Doimkgvep Result EncounterLisa Aichholz STRAP CUTTING MACHINE OPERATOR Work Phone: noms External Department UnsolicitedStart: 05-29-2024 End: 70-25-1190Bnvlml OnlyLisa Aichholz STRAP CUTTING MACHINE OPERATOR Work Phone: noms CWM FMComment on above:Multiple lung nodules on CT (Primary Dx)Start: 05-28-2024 End: 39-90-9237Udrxyz OnlyLisa Aichholz STRAP CUTTING MACHINE OPERATOR Work Phone: noms CWM FMComment on above:Multiple lung nodules on CT (Primary Dx)Start: 05-24-2024 End: 26-48-1178Stkdwuicy encounterLisa Aichholz STRAP CUTTING MACHINE OPERATOR Work Phone: noms CWM FMStart: 05-23-2024 End: 40-63-0756Bnlhlpwgz encounterLisa Aichholz STRAP CUTTING MACHINE OPERATOR Work Phone: noms CWM FMStart: 05-21-2024 End: 44-26-1251oirvlbuguhHDSZLWX A [facility]: 05-15-2024 End: 22-08-1557Iegeev outpatient visit 25 minutesHilamindy Mayo MD Work Phone: noms CI ENTComment on above:Hyperthyroidism (CMS/HCC) (Primary Dx); Thyroid nodule (CMS/HCC)Start: 05-15-2024 End: 97-90-7927Qpxznm OnlyLisa Aichholz STRAP CUTTING MACHINE OPERATOR Work Phone: noms CWM FMComment on above:Multiple lung nodules on CT (Primary Dx)Start: 05-14-2024 End: 13-77-0694Hegcufp encounter Jsoe Dumont STRAP CUTTING MACHINE OPERATOR Work Phone: noms CWM FMComment on above:Encounter for subsequent annual wellness visit (AWV) in Medicare patient (Primary Dx); Tobacco dependence; Pre-diabetes; Obesity (BMI 30-39.9); Age-related osteoporosis without current pathological fracture (CMS/HCC); Coronary artery disease involving 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 ([facility]/HCC); Essential hypertension ([facility]/HCC)Start: 05-14-2024 End: 05-05-6398sqlhvqwepoEOSKJohn Willis AvailableStart: 05-13-2024 End: 22-04-2219Rllgsj flowsheetJr. Herson Avalos DO Work Phone: noms FB ORTHOPAEDICSStart: 05-13-2024 End: 05-81-0079Wojnmb flowsheetJr. Herson Avalos DO Work Phone: noms FB ORTHOPAEDICSStart: 05-13-2024 End: 98-19-5182ptbqaahwgiLX., HERSON AVALOSNot AvailableStart: 05-13-2024 End: 02-29-0844Xuwjzw outpatient visit 25 minutesJr. Herson Avalos DO Work Phone: noms FB ORTHOPAEDICSComment on above:Left leg pain (Primary Dx); Lumbar pain; Weakness of left lower extremityStart: 05-09-2024 End: 47-73-3214uukedomrmjSYVJ J [facility] HOSPITALRubenSelect [facility] Specialty [facility] Trumb[facility] HospitalStart: 05-09-2024 End: 34-61-7082itczbzuutgMXSY J [facility] Hospitaltart: 05-07-2024 End: 63-20-8474Ojwvef OnlyStephanie Dumont STRAP CUTTING MACHINE OPERATOR Work Phone: noms CWM FMComment on above:Multiple lung nodules on CT (Primary Dx)Start: 05-02-2024 End: 25-80-1979oixrdzmscmVTVJCFE J TriHealthtart: 05-02-2024 End: 56-55-2804fbymgsksltMJWOVJV J TriHealthtart: 04-25-2024 End: 59-33-9650Xqghocgzl encounterStephanie Dumont NP Work Phone: noms CWM FMStart: 04-24-2024 End: 72-18-9546Flccoc outpatient visit 25 minutesLisa Dumont STRAP CUTTING MACHINE OPERATOR Work Phone: noms CWM FMComment on above:Thyroid nodule (CMS/HCC) (Primary Dx); Immune thrombocytopenic purpura (CMS/HCC); Coronary artery disease involving 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 (CMS/HCC); Pre-diabetes; Obesity (BMI 30-39.9); Diarrhea, unspecified typeStart: 04-18-2024 End: 21-63-5547Gktuglt evaluation of patient and reportMa Nurse Clarence Gaona Work Phone: Hematology/OncologyComment on above:Megaloblastic anemia due to vitamin B12 deficiency (Primary Dx); Thrombocytopenia (HCC); Lupus; Abnormal weight loss; Chronic ITP (idiopathic thrombocytopenia) (HCC)Start: 04-18-2024 End: 92-85-7428Asxneu outpatient visit 15 minutesRinku Dupree MD Work Phone: Hematology/OncologyComment on above:Hyperglycemia (Primary Dx); Chronic ITP (idiopathic thrombocytopenia) (HCC); Megaloblastic anemia due to vitamin B12 deficiency; Obstructive sleep apnea syndromeStart: 04-17-2024 End: 76-39-1041tlmsigwalsSWPQ J AICHHOLZHocking Valley Community Hospitaltart: 04-16-2024 End: 10-57-9919Lsntbkocy Result EncounterStephanie Dumont NP Work Phone: noms External Department UnsolicitedStart: 04-16-2024 End: 97-42-9739Dxfuhwnna Result EncounterStephanie Dumont STRAP CUTTING MACHINE OPERATOR Work Phone: noms External Department UnsolicitedStart: 04-16-2024 End: 28-93-0269xklmzopdeiYpykve Yaakov McgheebenitezPromedica [facility]tr Work Phone: Start: 04-16-2024 End: 27-14-6002Hederpgk ReferredMD Tha Salguero Work Phone: [facility]-LAB [facility] HospStart: 04-10-2024 End: 59-97-1156SromnvVeml Kwanhholz STRAP CUTTING MACHINE OPERATOR Work Phone: noms CWM FMComment on above:Coronary artery disease involving 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 (CM S/HCC)Start: 04-09-2024 End: 00-30-6507Cdueeylji encounterNattyrone Pimentel RNHematology/OncologyComment on above:[facility]yroid [facility]Start: 04-09-2024 End: 95-28-5356Cooren outpatient visit 25 minutesMarodríguez GONZALEZ Work Phone: noms FB ORTHOPAEDICSComment on above:Left leg pain (Primary Dx)Start: 04-05-2024 End: 49-14-5987Eltgge OnlyLisa Kwanhjuan josez STRAP CUTTING MACHINE OPERATOR Work Phone: noms CWM FMComment on above:Disease of thyroid gland (CMS/HCC) (Primary Dx)Start: 04-05-2024 End: 27-97-0450Ywevdql encounter procedureCcf ProviderCleveland Clinic [facility]on Hospital DepartmentStart: 04-04-2024 End: 96-89-9116Fwsvvo flowsheetLisa Aichholz STRAP CUTTING MACHINE OPERATOR Work Phone: noms CWM FMStart: 04-04-2024 End: 25-38-4602Majqyxtxb Result EncounterLisa Aichholz STRAP CUTTING MACHINE OPERATOR Work Phone: noms External Department UnsolicitedStart: 04-04-2024 End: 86-93-1962Hcvfstns Result EncounterLisa Aichholz STRAP CUTTING MACHINE OPERATOR Work Phone: noms External Department UnsolicitedStart: 04-04-2024 End: 52-15-2724Drpgdjwt Result EncounterStephanie Tim STRAP CUTTING MACHINE OPERATOR Work Phone: noms External Department UnsolicitedStart: 04-04-2024 End: 68-36-4514zsvisquietXBNZ J TIMProMemorial Hermann [facility] Medical Centertart: 04-04-2024 End: 59-07-5027Cemnyo outpatient visit 25 minutesSade Tim STRAP CUTTING MACHINE OPERATOR Work Phone: noms CWM FMComment on above:Coronary artery disease involving 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 (CM S/HCC) (Primary Dx); Elevated glucose level; Essential hypertension (CMS/HCC); Encounter for screening mammogram for malignant neoplasm of breast; Other chest pain; Disease of thyroid gland (CMS/HCC); Obesity (BMI 30-39.9); Posterior left knee painStart: 04-02-2024 End: 11-41-2061MnenklCoemkwr McKitrick [facility] Work Phone: [facility] PharmacyComment on above: Refill RequestCoronary artery disease involving 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 (CMS/HCC)Start: 03-27-2024 End: 83-40-2186Lzxuai OnlyStephanie Tim STRAP CUTTING MACHINE OPERATOR Work Phone: noms CWM FMComment on above:Obstructive sleep apnea syndrome (Primary Dx); PAH (pulmonary artery hypertension) (CMS/HCC)Start: 03-22-2024 End: 10-99-3808Kxtesdmzx Result EncounterLisa Tim STRAP CUTTING MACHINE OPERATOR Work Phone: noms External Department UnsolicitedStart: 03-22-2024 End: 55-02-3405Nuulwmtrm Result EncounterLisa Tim STRAP CUTTING MACHINE OPERATOR Work Phone: noms External Department UnsolicitedStart: 03-05-2024 End: 83-69-8188Iywrebf evaluation of patient and reportMa Nurse Clarence Gaona Work Phone: Hematology/OncologyComment on above:Megaloblastic anemia due to vitamin B12 deficiency (Primary Dx); Abnormal weight loss; Lupus (HCC); Thrombocytopenia (HCC); Chronic ITP (idiopathic thrombocytopenia) (HCC)Start: 03-05-2024 End: 65-41-4566Fxunat outpatient visit 25 minutesRinku Dupree MD Work Phone: Hematology/OncologyComment on above:Chronic ITP (idiopathic thrombocytopenia) (HCC) (Primary Dx); Megaloblastic anemia due to vitamin B12 deficiency; Obstructive sleep apnea syndromeStart: 03-04-2024 End: 07-64-0956Jgjsni flowsRemigio Dumont STRAP CUTTING MACHINE OPERATOR Work Phone: noMS CWM FMStart: 03-04-2024 End: 83-57-1251Mxsjqc flowsRemigio Dumont STRAP CUTTING MACHINE OPERATOR Work Phone: noms CWM FMStart: 03-04-2024 End: 55-64-7134Xpkcvb outpatient visit 25 minutesStephanie Dumont STRAP CUTTING MACHINE OPERATOR Work Phone: NOMS CWM FMComment on above:Coronary artery disease involving 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 (CM S/HCC) (Primary Dx); Calcification of aortic valve; Essential hypertension (CMS/HCC); Thyroid nodule (CMS/HCC)Start: 03-01-2024 End: 39-96-2091lwvijdzbcpTWTY J AICRICHIHocking Valley Community Hospitaltart: 02-26-2024 End: 96-41-4426Meshwr OnlyStephanie Dumont STRAP CUTTING MACHINE OPERATOR Work Phone: noms CWM FMComment on above:Thyroid nodule (CMS/HCC) (Primary Dx); Calcification of aortic valve; Coronary artery disease involving 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 (CMS/HCC)Start: 61-72-5071Jnv-patient / Non-visitMD Tha Salguero Work Phone: [facility]Sam[facility] Work Phone: Start: 02-06-2024 End: 17-69-2829gfwdaegjzqZUQPZMemorial Satilla Health AmbulatoryStart: 02-02-2024 End: 84-09-8389Xzzyxl outpatient visit 15 minutesRinku Dupree MD Work Phone: Hematology/OncologyComment on above:Chronic ITP (idiopathic thrombocytopenia) (HCC) (Primary Dx); Essential hypertension; Obstructive sleep apnea syndrome; Stage 3b chronic kidney disease (HCC)Start: 16-97-0809MvfmkkBmwuidu Powell telecommunications repairer/OncologyComment on above:Refill RequestStart: 10-40-0350UpdisvRkbuuDanica Connelly APRN.CNP Work Phone: Hematology/OncologyComment on above:Refill Request Start: 01-02-2024 End: 86-34-2820Fxcdni follow up visit related to original Sybil Gutiérrez MD Work Phone: uh [facility] HospitalComment on above:Cholesteatoma of left ear (Primary Dx); Encounter for postoperative careStart: 01-02-2024 End: 58-12-0755edeyftzcygHDPQWPOFAECU [facility] Start: 12-18-2023 End: 37-16-2009Rzmlyfrfjmrh stateSjarrett Graf MD Work Phone: [facility] HospitalStart: 12-18-2023 End: 48-48-7182Mjitjcjwzb hospital visit by Ana María Graf MD Work Phone: uh [facility] ORComment on above: Cholesteatoma of left ear (Primary Dx); Preoperative clearance; Post-operative painStart: 12-15-2023 End: 58-00-5396Kpnkzwr evaluation of patient and reportMa Nurse Clarence Gaona Work Phone: Hematology/OncologyComment on above:Preoperative examination (Primary Dx)Start: 12-15-2023 End: 45-48-1372Djhkjgjrlbufd examination doneMa Nurse Clarence Gaona Work Phone: [facility]Start: 09-14-5782Epnjgidkg encounter Emilia Robins RN Work Phone: Hematology/OncologyComment on above:Call RequestStart: 11-24-2023 End: 10-82-7735Tthdpt outpatient visit 25 minutesRinku Dupree MD Work Phone: Hematology/OncologyComment on above:Chronic ITP (idiopathic thrombocytopenia) (HCC) (Primary Dx); Stage 3b chronic kidney disease (HCC); Secondary hypertension; Obstructive sleep apnea syndromeStart: 11-14-2023 End: 20-81-9869Ettdmzfizh hospital visit by physicianStr[facility] [address]G[facility] County HospitalComment on above:Cholesteatoma of left earStart: 11-14-2023 End: 98-21-5505Mquzpx outpatient new 45 minutesSusanna Graf MD Work Phone: uh [facility] HospitalComment on above:Cholesteatoma of left ear; Perforation of left tympanic membraneStart: 10-13-2023 End: 02-15-4389Elvitd outpatient visit 15 minutesAna Hernandez PA-C Work Phone: Hematology/OncologyComment on above:Chronic ITP (idiopathic thrombocytopenia) (HCC) (Primary Dx); Stage 3b chronic kidney disease (HCC); Secondary hypertensionStart: 09-11-2023 End: 38-67-6630Iaocdasph Result EncounterGeneric External Data ProviderNOMS External Department UnsolicitedStart: 09-11-2023 End: 16-01-9469Gqkchnjiw Result EncounterGeneric External Data ProviderNOMS External Department UnsolicitedStart: 15-66-2094QseilkMcfoc Abhyankar MD Work Phone: Hematology/OncologyComment on above:Refill Request Start: 08-28-2023 End: 58-07-4493Nboehy outpatient visit 15 minutesRinku Dupree MD Work Phone: Hematology/OncologyComment on above:Chronic ITP (idiopathic thrombocytopenia) (HCC) (Primary Dx); Essential hypertension; Obstructive sleep apnea syndrome; Systemic lupus erythematosus, unspecified SLE type, unspecified organ involvement status (HCC); Malaise and fatigueStart: 12-92-6754Ohlgdb Flora Mayo MD Work Phone: NOMS CI ENTStart: 68-75-5525Vjrcwx Flora Mayo MD Work Phone: noMS CI ENTStart: 08-23-2023 End: 20-53-4667Xfougw outpatient new 30 minutesMar Mayo MD Work Phone: noMS CI ENTComment on above:Mixed conductive and sensorineural hearing loss of left ear with restricted hearing of right ear (Pr imary Dx); Multiple perforations of left tympanic membraneStart: 35-53-1966Luwwf abstractingMar Mayo MD Work Phone: noMS ENT NORWALKStart: 63-71-6376Xeqnij flowsheet Karissa Kori Baudilio CCC-A Work Phone: NOMS CI AUDStart: 04-60-1430Wxfcjv flowsheetZahraavan Sheikh Baudilio [facility] Work Phone: noMS CI AUDStart: 08-16-2023 End: 72-25-9480Qtyxxhyj SupportDearbor healthvan Sheikh Baudilio [facility]-A Work Phone: noMS CI AUDComment on above:Mixed conductive and sensorineural hearing loss of left ear with restricted hearing of right ear (Pr imary Dx); Tympanic membrane perforation, leftStart: 97-82-2886Aflzxv outpatient visit 15 minutesAbdul QadiGunnison Valley Hospital [facility] [place]ristowStart: 06-28-2023 End: 16-73-9345bmrhfrptriIljxf Merged with [facility] [employer] Other Start: 06-05-2023 End: 90-44-1103qsvzhjnquqNjpbt M Musser PA-C Work Phone: Hematology/OncologyComment on above:Chronic ITP (idiopathic thrombocytopenia) (HCC) (Primary Dx); Essential hypertension; Hypertension, unspecified typeStart: 06-05-2023 End: 89-21-3740Hfvsbhy encounter procedureAna Hernandez PA-C Work Phone: SANDUSKYStart: 61-50-5031TfuerwUwhhyth McKitrick [facility] Work Phone: Hematology/OncologyComment on above:Refill Request Start: 04-20-2023 End: 78-01-3363Stzrog outpatient visit 25 minutesRinku Dupree MD Work Phone: Hematology/OncologyComment on above:Chronic ITP (idiopathic thrombocytopenia) (HCC) (Primary Dx); Essential hypertensionStart: 69-10-4749Mkazqihuu encounterRinku Dupree MD Work Phone: Hematology/OncologyComment on above:Lab OrdersStart: 04-05-2023 End: 25-07-6381hfmfigwteeRuuae Tyrel Other [employer] Other Start: 17-05-5382Enlxlnafh encounterAbdul QadirFPG NephrologyStart: 03-14-2023 End: 74-82-8174naovmxarfjUscqr Tyrel Other [employer] Other Start: 10-65-9878Kpbsaandb encounterAbdul QadirFPG NephrologyStart: 03-09-2023 End: 27-47-8106Amjnyq outpatient visit 15 minutesRinku Dupree MD Work Phone: Hematology/OncologyComment on above:Chronic ITP (idiopathic thrombocytopenia) (HCC) (Primary Dx); Essential hypertension; Obstructive sleep apnea syndrome; Systemic lupus erythematosus, unspecified SLE type, unspecified organ involvement status (HCC)Start: 01-26-2023 End: 79-30-2577Axiids outpatient visit 15 minutesRinku Dupree MD Work Phone: Hematology/OncologyComment on above:Chronic ITP (idiopathic thrombocytopenia) (HCC) (Primary Dx); Hypertension, unspecified type; Obstructive sleep apnea syndromeStart: 12-15-2022 End: 53-45-7049Kmamcv outpatient visit 15 minutesRinku Dupree MD Work Phone: Hematology/OncologyComment on above:Chronic ITP (idiopathic thrombocytopenia) (HCC) (Primary Dx)Start: 10-27-2022 End: 13-53-3707Ipzfih outpatient visit 15 minutesRinku Dupree MD Work Phone: Hematology/OncologyComment on above:Chronic ITP (idiopathic thrombocytopenia) (HCC) (Primary Dx)Start: 42-70-2950RyfguaYrmew Abhyankar MD Work Phone: Hematology/OncologyComment on above:Refill Request Start: 96-15-7650BrabntTtftk Abhyankar MD Work Phone: Hematology/OncologyComment on above:Refill Request Start: 09-15-2022 End: 70-37-2023Qlhfyx outpatient visit 15 minutesRinku Dupree MD Work Phone: Hematology/OncologyComment on above:Chronic ITP (idiopathic thrombocytopenia) (HCC) (Primary Dx); Obstructive sleep apnea syndromeStart: 99-66-4516BvtnkxHmyim Abhyankar MD Work Phone: Hematology/OncologyComment on above:Refill Request Start: 09-07-2022 End: 82-58-5136vwekcboosxUdupq Tyrel Other [place] [employer] Other Start: 93-37-2145Eqyarn outpatient visit 25 minutes Gilson QadirFPG [facility]rology Clinic [place]ristowStart: 08-29-2022 End: 70-76-1124pfciawehyfIVQ [facility] Work Phone: Start: 08-29-2022 End: 02-72-4828Blcpjsw encounter procedureMD Gilson Tyrel Work Phone: [facility]-Ultrasound [facility] [place] Work Phone: Start: 46-66-3765XgwikvDajndLenore Connelly APRN.STEPH Work Phone: Hematology/OncologyComment on above:Refill Request Start: 40-94-5496SnaptmRxmulLenore Connelly APRN.DRUG ABUSE WORKER Work Phone: Hematology/OncologyComment on above:Refill Request Start: 08-04-2022 End: 10-03-9899jpntnwpcnnVfvrb Martinez DEVELOPING MACHINE TENDER.DRUG ABUSE WORKER Work Phone: Hematology/OncologyComment on above:Chronic ITP (idiopathic thrombocytopenia) (HCC) (Primary Dx); Obstructive sleep apnea syndrome; Hypertension, unspecified type; Systemic lupus erythematosus, unspecified SLE type, unspecified organ involvement status (HCC); Malaise and fatigue; Skin lesion of right lower extremityStart: 08-04-2022 End: 45-42-5382Gflwdvg encounter procedureJayden Connelly APRN.DRUG ABUSE WORKER Work Phone: SANDUSKYStart: 78-28-2723Knmkseyne encounterJayden Connelly APRN.DRUG ABUSE WORKER Work Phone: Cancer Appts MCComment on above:Referral Information (Dermatology)Start: 27-16-6416YlvzzgDmcgfSanna Connelly APRN.[facility] Work Phone: Hematology/OncologyComment on above:Refill Request Start: 17-95-2095DvgibyGoietKacey Dupree MD Work Phone: Hematology/OncologyComment on above:Refill Request Start: 06-23-2022 End: 85-14-4725hasjilzofkKzezxMal Dupree MD Work Phone: Hematology/OncologyComment on above:Chronic ITP (idiopathic thrombocytopenia) (HCC) (Primary Dx); Hypertension, unspecified type; Obstructive sleep apnea syndrome; Systemic lupus erythematosus, unspecified SLE type, unspecified organ involvement status (HCC)Start: 06-23-2022 End: 07-80-0345Lxhkyfj encounter Yo Dupree MD Work Phone: SANDUSKYStart: 24-79-6340LsedhvIdmvdTameka Dupree MD Work Phone: Hematology/OncologyComment on above:Refill Request Start: 72-39-7257EjzkutCluui Martinez DEVELOPING MACHINE TENDER.DRUG ABUSE WORKER Work Phone: Hematology/OncologyComment on above:Refill Request Start: 83-31-5324YqxmfzHdpxyTiffany Dupree MD Work Phone: Hematology/OncologyComment on above:Refill Request Start: 05-12-2022 End: 37-52-4041gnrkeabivqUnmpn Martinez DEVELOPING MACHINE TENDER.DRUG ABUSE WORKER Work Phone: Hematology/OncologyComment on above:Chronic ITP (idiopathic thrombocytopenia) (HCC) (Primary Dx); Obstructive sleep apnea syndrome; Essential hypertensionStart: 05-12-2022 End: 82-52-6774Blqqseh encounter procedureJayden Connelly APRN.DRUG ABUSE WORKER Work Phone: SANDUSKYStart: 26-83-4128NddriyNmqkk Martinez DEVELOPING MACHINE TENDER.DRUG ABUSE WORKER Work Phone: Hematology/OncologyComment on above:Refill Request Start: 03-31-2022 End: 63-31-0241ogekdasdczIuobjMal Dupree MD Work Phone: Hematology/OncologyComment on above:Chronic ITP (idiopathic thrombocytopenia) (HCC) (Primary Dx); Obstructive sleep apnea syndromeStart: 03-31-2022 End: 55-07-5356Yziazrf encounter Yo Dupree MD Work Phone: SANDUSKYStart: 28-66-8165XzfkygJjotmTameka Dupree MD Work Phone: Hematology/OncologyComment on above:Refill Request Start: 28-27-2269GtjmadVoyuj Martinez DEVELOPING MACHINE TENDER.DRUG ABUSE WORKER Work Phone: Hematology/OncologyComment on above:Refill Request Start: 02-11-2022 End: 36-14-4856sjouxkznmvNjtzy Martinez DEVELOPING MACHINE TENDER.DRUG ABUSE WORKER Work Phone: Hematology/OncologyComment on above:Chronic ITP (idiopathic thrombocytopenia) (HCC) (Primary Dx); Essential hypertension; Obstructive sleep apnea syndrome; Systemic lupus erythematosus, unspecified SLE type, unspecified organ involvement status (HCC)Start: 02-11-2022 End: 20-88-0517Fadwzuv encounter Moraima Connelly APRN.DRUG ABUSE WORKER Work Phone: SANDUSKYStart: 84-54-7876SoynufQbkddDanica Connelly APRN.DRUG ABUSE WORKER Work Phone: Hematology/OncologyComment on above:Refill Request Start: 46-80-0582NdngpxGjnmoDanica Connelly APRN.DRUG ABUSE WORKER Work Phone: Hematology/OncologyComment on above:Refill Request Start: 47-74-7548QiecxxLapxiDanica Connelly APRN.DRUG ABUSE WORKER Work Phone: Hematology/OncologyComment on above:Refill Request Start: 12-17-2021 End: 63-81-5868drmnbygfydPttxpManuel Connelly APRN.DRUG ABUSE WORKER Work Phone: Hematology/OncologyComment on above:Chronic ITP (idiopathic thrombocytopenia) (HCC) (Primary Dx); Hypertension, unspecified type; Essential hypertension; Obstructive sleep apnea syndrome; Lung nodules; Systemic lupus erythematosus, unspecified SLE type, unspecified organ involvement status (HCC)Start: 12-17-2021 End: 06-20-1828Qymehhm encounter Moraima Connelly APRN.DRUG ABUSE WORKER Work Phone: SANDUSKYStart: 11-10-2021 End: 34-78-3824fyirafunlqWxrio Ytrel Other [place] [employer] Other Start: 09-92-9803Rqydoa outpatient new 45 minutesAbdul QadirF [facility]art: 10-28-2021 End: 46-43-7029zrgilcerykErnqi Abhyankar MD Work Phone: Hematology/OncologyComment on above:Chronic ITP (idiopathic thrombocytopenia) (HCC) (Primary Dx); Essential hypertension; Obstructive sleep apnea syndrome; Lung nodules; Systemic lupus erythematosus, unspecified SLE type, unspecified organ involvement status (HCC)Start: 10-28-2021 End: 53-57-5582Epxdpic encounter procedureRinku Dupree MD Work Phone: SANDUSKYStart: 95-30-8541dmxbtaimmmNji Timmons MA [facility] EnterpriseComment on above:Population Health Navigation Outreach (ACO PCP)Start: 90-67-5397EkgjziUfdkr Martinez APRN.CNP Work Phone: Hematology/OncologyComment on above:Refill Request Start: 22-38-2885Idjcaotuw encounterLaluis eduardo Rascon [facility] Work Phone: [facility] PharmacyComment on above: Medication Follow-up ([place] free drug application faxed)Start: 05-24-2016 End: 79-70-9440HwerppuyyiLOMPCIW P MOTTFacility:[facility] Procedures DateProcedureProcedure DetailPerforming ClinicianStart: 52-43-9160Pw soft tissue head & neck real time imge docmHdirk Mayo MD Work Phone: Start: 59-25-6077NHEPW OXIMETRY, CONTINUOUSNoah Denzel JAIMES Work Phone: Start: 32-62-8879QY LUMBAR SPINE 2 OR 3VLisa Aichholz STRAP CUTTING MACHINE OPERATOR Work Phone: Start: 12-25-2024E COLI SHIGA TOXIN EIAGeneric External Data ProviderStart: 99-26-0150Potvnekuux glycosylated y2kDmno Aichholz STRAP CUTTING MACHINE OPERATOR Work Phone: Start: 40-17-0026RI CHEST WO CONLisa Aichholz STRAP CUTTING MACHINE OPERATOR Work Phone: Start: 41-54-8462Pl soft tissue head & neck real time imge docmGeneric External Data ProviderStart: 14-29-2779YJ CHEST WO CONLisa Aichholz STRAP CUTTING MACHINE OPERATOR Work Phone: Start: 72-87-7103Hlbzj spine lumbosacral 2/3 viewsJr. Herson Avalos DO Work Phone: Start: 71-44-5501UjgdftemzpuTron Tim STRAP CUTTING MACHINE OPERATOR Work Phone: Start: 68-42-1822GF BIOPSY THYROIDLisa Tim STRAP CUTTING MACHINE OPERATOR Work Phone: Start: 65-33-2285Oy soft tissue head & neck real time imge docmLisa Tim STRAP CUTTING MACHINE OPERATOR Work Phone: Start: 23-04-8543Gfthm dip stick/tablet rgnt non-auto w/o micrscpLisa Tim STRAP CUTTING MACHINE OPERATOR Work Phone: Start: 31-56-9048ZS ECHO DOPPLER COMPLETELisa Tim STRAP CUTTING MACHINE OPERATOR Work Phone: Start: 36-57-0425EYUXS OXIMETRY, CONTINUOUSBasanta Roe Woodward MD Work Phone: Start: 88-09-2054Imv routine ecg w/least 12 lds i&r onlyCcf ProviderStart: 12-05-9403Xn orbit sella/post fossa/ear w/o contrast Nicola Graf MD Work Phone: Start: 24-91-8791MYXD URINALYSIS, WITH MICROSCOPIC Generic External Data ProviderStart: 33-47-5646ZQI URINE T PROTEIN CREAT RATIO Generic External Data ProviderStart: 02-38-5432RHP MAGNESIUMGeneric External Data ProviderStart: 31-53-4711YMN RENAL FUNCTION PANELGeneric External Data ProviderStart: 27-20-4301IZQ URIC ACIDGeneric External Data ProviderStart: 43-96-4911IMB FERRITINGeneric External Data ProviderStart: 74-50-2481CRBY CBC WITH PLATELET NO DIFFERENTIALGeneric External Data ProviderStart: 77-79-0965AZVF PTH, INTRAOPERATIVEGeneric External Data ProviderStart: 54-62-8655VFXQZ IRON AND TIBCGeneric External Data ProviderStart: 24-77-0840PYV VITAMIN D 25 [place] Generic External Data ProviderStart: 16-13-9284HU RENAL BIGeneric External Data ProviderStart: 96-86-9130HZCJILPZ FUNCTION TESTSKarissa Astudillo [facility] Work Phone: start: 88-36-7358MilwihhhetkQqffqua [facility] Work Phone: start: 08-84-8819Dtohhhfnpfeimgo of bilateral kidneys MD Gilson Arriola Work Phone: Start: 21-85-2685TknwaykmuolWuowg Martinez DEVELOPING MACHINE TENDER.[facility] Work Phone: Start: 84-96-9716Bypsz depression screening assessment Jayden Connelly DEVELOPING MACHINE TENDER.DRUG ABUSE WORKER Work Phone: Start: 83-81-5587Pxsbo depression screening assessment Jayden Connelly DEVELOPING MACHINE TENDER.[facility] Work Phone: Start: 78-28-8044Nmwal 1996 panel - Serum or Plasma Rinku Dupree MD Work Phone: Plan of Treatment DateCare ActivityDetailAuthorStart: 54-11-0143Wyyraqrjm for malignant neoplasm of colonNOMS HealthcareStart: 75-17-8674Ucyzktbf ScreeningDiabetes Screening [facility]: 67-88-7349Xzvlhxfk ScreeningDiabetes ScreeningSelect [facility]: 17-61-7826Divmojod ScreeningDiabetes ScreeningC[facility] Start: 45-59-0204Cxdoklmp ScreeningDiabetes ScreeningWalters ClinicStart: 47-17-7380Ovuzeqxe ScreeningDiabetes ScreeningWalters ClinicStart: 10-12-2027 Diabetes ScreeningDiabetes ScreeningWalters ClinicStart: 72-85-8530Unxutmao ScreeningDiabetes ScreeningWalters ClinicStart: 50-82-1072Dekpumnj Screening Diabetes ScreeningWalters ClinicStart: 79-36-0374Nvazlead ScreeningDiabetes ScreeningWalters ClinicStart: 36-29-5711Zjckaqbu ScreeningDiabetes Screening [facility] ClinicStart: 59-23-3208Suqgypcl ScreeningDiabetes ScreeningWalters ClinicStart: 80-60-5246Dukscbqk ScreeningDiabetes ScreeningC[facility] Clinic [facility] Start: 53-27-8363Cvzgsath ScreeningDiabetes ScreeningSelect [facility]: 19-98-0433Ukzxjtow ScreeningDiabetes ScreeningSelect [facility] [place]: 10-12-2026 Diabetes ScreeningDiabetes ScreeningSelect [facility] [place]: 73-41-7787Vrbeaeze ScreeningDiabetes ScreeningSelect [facility] [place]: 21-72-7136Aspljhno Screening Diabetes ScreeningSelect [facility] [place]: 09-26-7616Coeujzbg ScreeningDiabetes ScreeningSelect [facility] [place]: 03-17-5175Avkbasqe blood count Hemoglobin/HematocritSelect Medical [facility], [facility]tart: 98-42-0907CEYTYWKU SCREENDIABETES SCREENSelect Medical [facility], [facility]: 74-44-9994Usqemabu ScreeningDiabetes Screening [facility] [place]: 79-11-1998Bqqoikjb blood countHemoglobin/Hematocrit [facility] [place]: 22-37-1605Revimmsmgs measurementSerum CreatinineSelect Medical [facility]: 29-75-5254Xqvhqbfu blood countHemoglobin/HematocritSelect Medical [facility] [place]: 05-15-3726JUQSKXPT SCREENDIABETES SCREENSelect Medical [facility]: 46-56-1528Fqfsgtgrfd measurementSerum CreatinineSelect Medical [facility] [place]: 56-82-9515Ibmmtdyw blood countHemoglobin/HematocritSelect Medical [facility] [place]: 69-59-7258Wvpdwhxk blood countHemoglobin/HematocritSelect Medical [facility] [place]: 48-34-1951Yurmpvubth measurementSerum CreatinineSelect Medical [facility] [place]: 75-46-5542Vptpsmbg blood countHemoglobin/HematocritSelect Medical [facility] [place]: 15-47-7021TGKKJKWF SCREENDIABETES SCREENSelect [facility]: 2025 Complete blood countHemoglobin/HematocritSelect Medical [facility]: 2025 Creatinine measurementSerum CreatinineSelect Medical [facility] [place]: 81-24-5700Ulnkxjhz blood countHemoglobin/HematocritSelect Medical [facility]: 46-13-1744Slsxparxun measurementSerum CreatinineSelect Medical [facility]: 47-66-3435AFKQMTAP SCREEN DIABETES SCREENSelect [facility]: 10-01-2025 End: 18-12-1877Pmuvsyi encounter kdkbvxhmo26/25/2026 11:10 AM EDT Office Visit [facility] [address] [place] [address] Mar Mayo MD [address] [place] [address] NOMKarissa [place] OtolaryngologyStart: 09-15-2025 DIABETES SCREENDIABETES SCREENSelect [facility]: 53-18-5864DW Controlled (<130/80)BP Controlled (<130/80)[facility] [place]: 38-47-5671SBPREWAR SCREEN DIABETES SCREENSelect [facility]: 78-88-0339LAJJBTAR SCREENDIABETES SCREEN [facility] [place]: 11-05-2025Medicare Annual Wellness (AWV)Medicare Annual Wellness (AWV)[facility] HealthcareStart: 74-47-5061BVZIYWBM SCREENDIABETES SCREEN [facility]: 05-18-0556Fcoecxw referralUniversity Hospitals E[facility] Work Phone: Start: 04-23-2025 End: 05-16-2599Renboct encounter procedureNOMS [place] OtolaryngologyComment on above:ArrivedStart: 44-60-0893Yjjpdzvsvc A1c measurementDiabetes: Hemoglobin A1C [facility] HospitalStart: 94-02-8542Pasinfpkz for malignant neoplasm of breastSelect Medical [facility]: 04-02-2025 End: 76-77-5008Ycozcuq encounter procedureNOMS CI ENTComment on above:Arrived Start: 16-92-9227IBJMKMAS SCREENDIABETES SCREENSelect [facility]: 03-28-2025 End: 45-23-8738Cdswpl-up encounterHematology/OncologyComment on above:6 week follow up, labs, B12 & AranespStart: 03-28-2025 End: 60-46-4537Ebesiup encounter kvfwnhvte66/19/2025 1:45 PM EDT Office Visit [facility] [address] [place] [address] 6 week follow up, labs, B12 & AranespNBraxton [facility] LaboratoryComment on above:6 week follow up, labs, B12 & Aranesp Start: 03-14-2025 End: 88-47-0076Vkvtmc-up cfrjrwtwa53/05/2025 2:30 PM EDT [facility] Hematology/Oncology [address] [place] [address] 6 week follow up, labs, B12 & AranespHematology/OncologyComment on above:6 week follow up, labs, B12 & AranespStart: 03-14-2025 End: 61-15-0004Btpwaqo encounter sgbmtpdei88/05/2025 2:15 PM EDT Office Visit [facility] [address] [place] [address] 6 week follow up, labs, B12 & AranespNBraxton County [facility] LaboratoryComment on above:6 week follow up, labs, B12 & Aranesp Start: 03-13-2025 End: 99-62-0089Nvaekhf encounter rwlgiffyx26/04/2025 10:00 AM EDT Office Visit [facility] [address] [place] [address] Stephanie Dumont NP [address] [address] ISRAEL Neelam FMStart: 06-09-1951Ejouakdrv vaccinationInfluenza Vaccine (#1)[facility]: 42-87-8989CR Controlled (<130/80)BP Controlled (<130/80)[facility]: 02-25-2025 End: 79-27-4213Yieatbu encounter zmlcsgakp69/19/2025 10:00 AM EDT Office Visit [facility] [address] [place] [address] [place] [address] [place] [address] [facility]-15-2025 End: 78-82-4080EKA W Auto Differential panel - BloodCOMPLETE BLOOD COUNT AND DIFFERENTIAL Lab Routine Malaise and fatigue 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) Megaloblastic anemia due to vitamin B12 deficiency Thrombocytopenia Chronic ITP (idiopathic thrombocytopenia) (HCC) Expected: 02/15/2025, Expires: 05/17/20[facility] Work Phone: Comment on above:Expected: 02/15/2025, Expires: 05/17/2025Start: 02-15-2025 End: 71-04-9955Xjioejuoi (Vitamin B12) [Mass/volume] in Serum or PlasmaVITAMIN B12 Lab Routine Malaise and fatigue 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) Megaloblastic anemia due to vitamin B12 deficiency Thrombocytopenia Chronic ITP (idiopathic thrombocytopenia) (HCC) Expected: 02/15/2025, Expires: 05/17/2025[facility] ClinicComment on above:Expected: 02/15/2025, Expires: 05/17/2025Start: 02-15-2025 End: 83-23-9107Iwzdkdqngmbci metabolic 2000 panel - Serum or PlasmaCOMPREHENSIVE METABOLIC PANEL Lab Routine Malaise and fatigue 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) Megaloblastic anemia due to vitamin B12 deficiency Thrombocytopenia Chronic ITP (idiopathic thrombocytopenia) (HCC) Expected: 02/15/2025, Expires: 05/17/2025[facility] ClinicComment on above:Expected: 02/15/2025, Expires: 05/17/2025Start: 02-15-2025 End: 57-27-8548Ufdbasdm [Mass/volume] in Serum or PlasmaFERRITIN Lab Routine Malaise and fatigue 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) Megaloblast ic anemia due to vitamin B12 deficiency Thrombocytopenia Chronic ITP (idiopathic thrombocytopenia) (HCC) Expected: 02/15/2025, Expires: 05/17/2025[facility] ClinicComment on above:Expected: 02/15/2025, Expires: 05/17/2025Start: 02-15-2025 End: 53-61-2131Edfw and Iron binding capacity panel - Serum or PlasmaIRON AND TIBC Lab Routine Malaise and fatigue 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) Megaloblastic anemia due to vitamin B12 deficiency Thrombocytopenia Chronic ITP (idiopathic thrombocytopenia) (HCC) Expected: 02/15/2025, Expires: 05/17/2025[facility] ClinicComment on above:Expected: 02/15/2025, Expires: 05/17/2025Start: 02-14-2025 End: 26-56-0459Dqztgu-up encounterHematology/OncologyComment on above:6 week follow up, labs, B12 & AranespStart: 02-14-2025 End: 09-11-5482Otewptn encounter cgqwzugof88/08/2025 2:15 PM EDT Office Visit [facility] [address] [place] [address] 6 week follow up, labs, B12 & AranesLeonard J. [facility] LaboratoryComment on above:6 week follow up, labs, B12 & Aranesp Start: 53-45-0960VBZYOYWF SCREENDIABETES SCREENWalters ClinicStart: 02-05-2025 Subsequent hospital visit by rcaxhocwi44/30/2025 Hospital Encounter [facility] [place] [address] [place] [address] [place] [address] [place] [address] [facility] ORStart: 01-31-2025 End: 18-66-1780Exuand-up xzpzinhsy61/25/2025 2:45 PM EDT [facility] Hematology/Oncology [address] [place] [address] 6 week follow up, labs, B12 & AranespHematology/OncologyComment on above:6 week follow up, labs, B12 & AranespStart: 01-31-2025 End: 90-48-4452Groljhp encounter /25/2025 2:30 PM EDT Office Visit [facility] [address] [place] [address] 6 week follow up, labs, B12 & AranesLeonard J. [facility]ert [facility] LaboratoryComment on above:6 week follow up, labs, B12 & Aranesp Start: 01-28-2025 End: 84-14-2856EJZ W Auto Differential panel - BloodCOMPLETE BLOOD COUNT AND DIFFERENTIAL Lab Routine 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) Ex pected: 01/28/2025, Expires: 04/29/2025[facility] Work Phone: Comment on above:Expected: 01/28/2025, Expires: 04/29/2025Start: 01-17-2025 End: 22-09-1807Dnimas-up hidexuylh37/11/2025 2:30 PM EDT [facility]ematology[facility]Oncology [address] [facility] [place] [address] 6 week follow up, labs, B12 & AranespHematology/OncologyComment on above:6 week follow up, labs, B12 & AranespStart: 01-17-2025 End: 67-52-6436Spsfqby encounter hbovgrerv38/11/2025 2:15 PM EDT Office Visit [facility] [address] [address] 6 week follow up, labs, B12 & AranespNBraxton County [facility] Hospital LaboratoryComment on above:6 week follow up, labs, B12 & Aranesp Start: 01-15-2025 End: 40-51-2873Cxxnzzp encounter procedureNOMS CWM FMComment on above:Chronic kidney disease, stage 3b ([facility]-HCC) (Primary Dx); Obesity (BMI 30-39.9); Tobacco dependenceStart: 01-15-2025 End: 29-58-2424JV Lumbar spine 2 or 3 ViewsXR lumbar spine 2 or 3 views Imaging Routine Weakness of both legs Lumbar spondylosis Expected: 01/15/2025, Expires: 01/15/2026[facility] Work Phone: Comment on above:Expected: 01/15/2025, Expires: 01/15/2026Start: 01-06-2025 End: 25-69-7885Rygdlmv encounter procedureNOMS CWM FMComment on above:Essential hypertension (Primary Dx); Chronic kidney disease, stage 3b (CMS-HCC)Start: 01-03-2025 End: 57-73-8415Nltdhy-up encounterHematology/OncologyComment on above:6 week follow up, labs, B12 & AranespStart: 01-03-2025 End: 11-13-3121Mpvvred encounter ebsaquazi37/27/2025 1:45 PM EDT Office Visit [facility] [address] [place] [address] 6 week follow up, labs, B12 & AranespNBraxton County Memorial Hospital LaboratoryComment on above:6 week follow up, labs, B12 & Aranesp Start: 12-25-2024 End: 37-16-2725Ptcikhrhfgg [Units/volume] in Serum or PlasmaTSH Lab Routine Thyroid nodule Expected: 12/25/2024 (Approximate), Expires: 12/25/2025[facility] Work Phone: Comment on above:Expected: 12/25/2024 (Approximate), Expires: 12/25/2025Start: 12-25-2024 End: 39-69-9623Llgdnlkxl (T4) free [Mass/volume] in Serum or PlasmaT4, free Lab Routine Thyroid nodule Expected: 12/25/2024 (Approximate), Expires: 12/25/2025 [facility] HealthcareComment on above:Expected: 12/25/2024 (Approximate), Expires: 12/25/2025Start: 12-25-2024 End: 72-83-8428Umaskrgkihenntdj (T3) Free [Mass/volume] in Serum or PlasmaT3, free Lab Routine Thyroid nodule Expected: 12/25/2024 (Approximate), Expires: 12/25/2025[facility] HealthcareComment on above:Expected: 12/25/2024 (Approximate), Expires: 12/25/2025Start: 12-25-2024 End: 25-13-3306Nltlgcl encounter procedureNOMS CWM FMComment on above: Obstructive sleep apnea syndrome (Primary Dx); Chronic kidney disease, stage 3b (CMS-HCC); Multiple lung nodules on CT; Coronary artery disease involving 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 ; Essential hypertension ; Obesity (BMI 30-39.9); Pre-diabetes; Chronic ITP (idiopathic thrombocytopenia) (HCC); Tobacco dependence; Thyroid noduleStart: 12-20-2024 End: 93-35-9636wtedzlxnxe45/13/2025 1:45 PM EDT [facility] Hematology/Oncology [address] [place] [address] Lab & AranespHematology/OncologyComment on above:Lab & AranespStart: 12-20-2024 End: 49-93-0955Kwpyhei encounter pmbxnocoq98/13/2025 1:30 PM EDT Office Visit [facility] [address] [place] [address] Lab & AranespNBraxton County [facility] Laboratory Comment on above:Lab & AranespStart: 20-54-5079XRCLIJUC SCREENDIABETES SCREEN [facility]: 2024 End: 48-45-1450Tajeqziiu (Vitamin B12) [Mass/volume] in Serum or PlasmaVITAMIN B12 Lab Routine Stage 3b chronic kidney disease (HCC) 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) Expected: 2024 (Approximate), Expires: 11/22/2025 [facility] Hospital[facility] on above:Expected: 2024 (Approximate), Expires: 11/22/2025Start: 2024 End: 14-26-1766Tbifqobtnyres metabolic 2000 panel - Serum or PlasmaCOMPREHENSIVE METABOLIC PANEL Lab Routine Stage 3b chronic kidney disease (HCC) 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) Expected: 2024 (Approximate), Expires: 11/22/2025[facility] ClinicComment on above:Expected: 2024 (Approximate), Expires: 11/22/2025Start: 2024 End: 62-33-9353Hvrdcdsbqdbznb (EPO) [Units/volume] in Serum or Plasma ERYTHROPOIETIN/EPO Lab Routine Stage 3b chronic kidney disease (HCC) 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) Expected: 2024 (Approximate), Expires: 03/07/2025[facility] ClinicComment on above:Expected: 2024 (Approximate), Expires: 03/07/2025Start: 2024 End: 19-28-7128Xaaopzfe [Mass/volume] in Serum or PlasmaFERRITIN Lab Routine Stage 3b chronic kidney disease (HCC) 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) Expected: 2024 (Approximate), Expires: 11/22/20[facility] Comment on above:Expected: 2024 (Approximate), Expires: 11/22/2025Start: 2024 End: 87-18-5666Neckrm [Mass/volume] in Serum or PlasmaFOLATE, SERUM Lab Routine Stage 3b chronic kidney disease (HCC) 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) Expected: 2024 (Approximate), Expires: 11/22/20[facility] Comment on above:Expected: 2024 (Approximate), Expires: 11/22/2025Start: 2024 End: 53-39-9614Fehn and Iron binding capacity panel - Serum or PlasmaIRON AND TIBC Lab Routine Stage 3b chronic kidney disease (HCC) 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) Expected: 2024 (Approximate), Expires: 11/22/2025[facility] ClinicComment on above:Expected: 2024 (Approximate), Expires: 11/22/2025Start: 2024 End: 73-68-8806LLOQGHIFLTJX COUNTRETICULOCYTE COUNT Lab Routine Stage 3b chronic kidney disease (HCC) 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) Expected: 2024 (Approximate), Expires: 03/07/2025[facility] ClinicComment on above: Expected: 2024 (Approximate), Expires: 03/07/2025Start: 2024 End: 67-68-6619xmpwqenqtd94/30/2025 1:45 PM EDT [facility] Hematology/Oncology [address] [facility] [place] [address] Lab & AranespHematology/OncologyComment on above:Lab & AranespStart: 2024 End: 33-63-8791Iqqrmll encounter jczosuekz32/30/2025 1:30 PM EDT Office Visit [facility] [address] [place] [address] [facility] & [facility]Leon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 Expected: 12/02/2024 (Approximate), Expires: 11/29/2025[facility] Work Phone: Comment on above:Expected: 12/02/2024 (Approximate), Expires: 11/29/2025Start: 11-26-2024 End: 42-70-1210wPNS in Platelet poor plasma by Coagulation assayaPTT Lab Routine Thrombocytopenia Expected: 11/26/2024 (Approximate), Expires: 11/26/2025 [facility] Work Phone: Comment on above:Expected: 11/26/2024 (Approximate), Expires: 11/26/2025Start: 11-26-2024 End: 24-84-9162CA Chest WO contrastCT chest wo IV contrast Imaging Routine Multiple lung nodules on CT Expected: 11/26/2024, Expires: 05/29/2025[facility] Work Phone: Comment on above:Expected: 11/26/2024, Expires: 05/29/2025Start: 11-26-2024 End: 49-59-8685Cwxlyrrspbx time (PT)Protime-INR Lab Routine Thrombocytopenia Expected: 11/26/2024 (Approximate), Expires: 11/26/2025[facility] Work Phone: Comment on above:Expected: 11/26/2024 (Approximate), Expires: 11/26/2025Start: 11-22-2024 End: 14-52-7575Lkzjqj-up kawcmbvec83/16/2025 2:00 PM EDT Visit (SP) Office Hematology/Oncology [address] [facility] [address] [address] [address] [place], [place] [phone] Rinku Dupree MD [address] [place] [place] [address] 6 week follow up and labs abd B 12 injHematology/Oncology Comment on above:6 week follow up and labs abd B 12 injStart: 11-22-2024 End: 57-65-0775Nwgrntc encounter yiqkbtpvf96/16/2025 1:45 PM EDT Office Visit [facility] [address] [place] [address] 6 week follow up and labs abd B 12 injNortJohn D. Dingell [facility] LaboratoryComment on above:6 week follow up and labs abd B 12 inj Start: 11-21-2024 End: 13-04-8706Tfzbkoc encounter aeorfriff11/15/2025 10:30 AM EDT Office Visit [facility] [address] [address] Stephanie Dumont NP [address] [place] [address] [facility] FMStart: 34-16-0151MPSFQ-19 Vaccine ( - season)COVID-19 Vaccine ( - season)[facility] Start: 80-56-2620Kuard-19 Vaccine (7 - Moderna risk season)Covid-19 Vaccine (7 - Moderna risk season)[facility]: 11-12-2024 End: 22-60-6932Wunbbgf encounter yorcgfqyi34/06/2025 11:00 AM EDT Office Visit [facility] [address] [place] [address] Stephanie Dumont, STRAP CUTTING MACHINE OPERATOR [address] [place] [address] [facility] FMStart: 73-32-3732NVGPGRIO SCREENDIABETES SCREEN [facility]: 10-11-2024 End: 63-07-4724Ggiiymq evaluation of patient and bsmnfq3010/11/2024 11:00 AM EDT Nurse Visit Hematology/Oncology [address] [place] [address] Debora Gaona Nurse Clarence [address] [place] [address] 6 week follow up labs B12 inj(seeing JR too)Hematology/OncologyComment on above:6 week follow up labs B12 inj(seeing JR too)Start: 10-11-2024 End: 16-40-8730Jzhjjh-up hjbmzcucd96/04/2025 10:30 AM EDT Visit (SP) Office Hematology/Oncology [address] [place] [address] Li Pitts APRN.DRUG ABUSE WORKER [address] [place] [address] 6 week follow up and labs abd B 12 injHematology/OncologyComment on above:6 week follow up and labs abd B 12 injStart: 10-11-2024 End: 47-01-7985Phwifnu encounter /04/2025 10:15 AM EDT [facility] [address] [place] [address] 6 week follow up and labs abd B 12 injNortJohn D. [facility]ell [facility] LaboratoryComment on above:6 week follow up and labs abd B 12 inj Start: 09-25-2024 End: 67-49-6659Czfbrdy encounter bhgpbtidd39/19/2025 10:20 AM EDT Office Visit [facility] [address] [place] [address] Mar Mayo MD [address] [place] [address] [place] [address] [facility] ENTStart: 92-32-0676HDFVICFV SCREENDIABETES SCREENCleveland ClinicStart: 08-22-2024 End: 03-79-6169Drfhwzo evaluation of patient and enuynt6808/22/2024 11:00 AM EST Nurse Visit Hematology/Oncology [address] [place] [address] [place] [address] [phone] Debora Gaona Nurse Clarence [address] [place] [address] 6 week follow up and labs abd B 12 inj-sees JR-date needs changed orders signedHematology/OncologyComment on above:6 week follow up and labs abd B 12 inj-sees JR-date needs changed orders signedStart: 08-22-2024 End: 92-75-9258Wnsdro-up gbemcuyfi08/13/2025 10:30 AM EST Visit (SP) Office Hematology/Oncology [address] [place] [address] Li Pitts APRN.DRUG ABUSE WORKER [address] [place] [address] 6 week follow up and labs abd B 12 injHematology/OncologyComment on above:6 week follow up and labs abd B 12 injStart: 08-22-2024 End: 10-52-4248Elojlcn encounter skaonbxqq54/13/2025 10:15 AM EST Office Visit [facility] [address] [place] [address] 6 week follow up and labs abd B 12 injNortJohn D. [facility]ell [facility] Affairs [facility] LaboratoryComment on above:6 week follow up and labs abd B 12 inj Start: 08-15-2024 End: 69-81-8745Epzitlp encounter procedureNOMS CWM FMComment on above:Systemic lupus erythematosus, unspecified (CMS/HCC) (Primary Dx); Qualitative platelet defects (CMS/HCC); Chronic kidney disease, stage 3a (HCC) (CMS/HCC); Immune thrombocytopenic purpura (CMS/HCC); Secondary pulmonary arterial hypertension (CMS/HCC); Coronary artery disease involving 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 (CMS/HCC); Essential hypertension (CMS/HCC); PAH (pulmonary artery hypertension) (CMS/HCC); Obesity (BMI 30-39.9); Pre-diabetes; Tobacco dependenceStart: 54-72-6627Wbgyi-19 Vaccine ()Covid-19 Vaccine ()[facility]: 07-11-2024 End: 02-29-9533Wbdxadk evaluation of patient and avieol3707/11/2024 11:30 AM EST Nurse Visit Hematology/Oncology [address] [place] [address] [place] [address] [phone] Debora Gaona Nurse Clarence [address] [place] [address] [place] [address] 6 week follow up and labs abd B 12 inj (seeing LOULOU too) Hematology/OncologyComment on above:6 week follow up and labs abd B 12 inj (seeing LOULOU too)Start: 07-11-2024 End: 83-68-0873Sjridj-up yyylnmbmg42/02/2025 11:00 AM EST Visit (SP) Office Hematology/Oncology [address] [place] [address] Li Pitts APRN.DRUG ABUSE WORKER [address] [place] [address] 6 week follow up and labs abd B 12 injHematology/OncologyComment on above:6 week follow up and labs abd B 12 injStart: 07-11-2024 End: 58-56-6347Bnawigm encounter cexlfhbnr21/02/2025 10:45 AM EST Office Visit [facility] [address] [place] [address] [place] [address] 6 week follow up and labs abd B 12 injNortJohn D. [facility]ell [facility] LaboratoryComment on above:6 week follow up and labs abd B 12 inj Start: 19-58-4058Pyrcqmg Directive DiscussionAdvance Directive Discussion [facility]: 01-01-2025Medicare Advantage Annual Wellness Visit Medicare Advantage Annual Wellness VisitSelect [facility]: 05-30-2024 End: 91-44-3807Bjyranv evaluation of patient and bwaqdz7905/30/2024 11:00 AM EST Nurse Visit Hematology/Oncology [address] [place] [address] [place] [address] [phone] Debora Gaona Nurse Clarence [address] [place] [address] 6 week follow up and labs abd B 12 inj (seeing LOULOU too) Hematology/OncologyComment on above:6 week follow up and labs abd B 12 inj (seeing LOULOU too)Start: 05-30-2024 End: 88-93-6327Hjztkb-up nczdicbck72/21/2024 10:45 AM EST Visit (SP) Office Hematology/Oncology [address] [place] [address] [place] [address] Rinku Dupree MD [address] [place] [address] 6 week follow up and labs abd B 12 injHematology/Oncology Comment on above:6 week follow up and labs abd B 12 injStart: 05-30-2024 End: 38-82-1298Obuusvw encounter jyfwxwwmd10/21/2024 10:30 AM EST Office Visit [facility] [address] [place] [address] [place] [address] 6 week follow up and labs abd B 12 injNortJohn D. [facility]ell [facility] LaboratoryComment on above:6 week follow up and labs abd B 12 inj Start: 05-28-2024 End: 94-26-6667YZ Chest WO contrastCT chest wo IV contrast Imaging Routine Multiple lung nodules on CT Expected: 05/28/2024, Expires: 05/28/2025[facility] Work Phone: Comment on above:Expected: 05/28/2024, Expires: 05/28/2025Start: 89-81-3165Uzmcxeiws for malignant neoplasm of breastMammogram [facility] HealthcareStart: 05-15-2024 End: 09-69-0383Voblwqx encounter /06/2024 2:20 PM EST Office Visit [facility] [address] [facility] [address] [place] [phone] Mar Mayo MD [address] [facility] [address] [place] [address] [facility] CI ENTStart: 05-15-2024 End: 90-75-6246Upewbhcvgr [Mass/volume] in Serum or PlasmaCreatinine Lab Routine Multiple lung nodules on CT Expected: 05/15/2024 (Approximate), Expires: 12/2024[facility] Work Phone: Comment on above:Expected: 05/15/2024 (Approximate), Expires: 05/15/2025Start: 05-14-2024 End: 37-98-3083PZY Skeletal system Views for bone densityDEXA bone density Imaging Routine Age-related osteoporosis without current pathological fracture ([facility]) Expected: 05/14/2024 (Approximate), Expires: 05/14/2025[facility] [employer] Work Phone: Comment on above:Expected: 05/14/2024 (Approximate), Expires: 05/14/2025Start: 05-14-2024 End: 80-63-4393Qbekrda encounter nxrdjepfv98/05/2024 10:30 AM EST Office Visit [facility] [address] [place] [address] Stephanie Dumont NP [address] [place] [address] [facility] FMStart: 05-13-2024 End: 05-07-6279Ruotrzl encounter sjjqignal69/04/2024 10:45 AM EST Office Visit [facility] [address] [place] [phone] Jr. Herson Avalos DO [address] [facility] [address] [place] [address] [facility]OPAEDICSStart: 05-09-2024 Influenza vaccinationInfluenza Vaccine (#1)[facility]OM HealthcareComment on above: Postponed from 03/10/2024 (Patient Does Not Have Time)Start: 10-30-2024Medicare Annual Wellness (AWV)Medicare Annual Wellness (AWV)[facility] HealthcareStart: 05-07-2024 End: 78-67-5857Vzutektbtv [Mass/volume] in Serum or PlasmaCreatinine Lab Routine Multiple lung nodules on CT Expected: 05/07/2024 (Approximate), Expires: 04/10[facility] HealthcareComment on above:Expected: 05/07/2024 (Approximate), Expires: 05/07/2025Start: 05-07-2024 End: 11-29-8530YX Chest W contrast IVCT chest w IV contrast Imaging Routine Multiple lung nodules on CT Expected: 05/07/2024 (Approximate), Expires: 05/07/2025[facility] Work Phone: Comment on above:Expected: 05/07/2024 (Approximate), Expires: 05/07/2025Start: 04-29-2024 End: 59-09-6501Giujulz encounter cxfwxhynu55/21/2024 10:30 AM EDT Office Visit [facility] [address] [place] [address] Jr. Herson Avalos, DO [address] [facility] [address] [place] [address] [facility]THOPAEDICSStart: 04-18-2024 End: 73-74-5765Cfcobju evaluation of patient and reportHematology/Oncology Comment on above:6 week follow up and labs abd B 12 inj6 week follow up and labs abd B 12 inj (seeing LOULOU too)Start: 04-18-2024 End: 60-91-7251Czntaj-up fsndiiepu34/10/2024 11:15 AM EDT Visit (SP) Office Hematology/Oncology [address] [place] [address] [place] [address] Rinku Dupree MD [address] [place] [address] 6 week follow up and labs abd B 12 injHematology/Oncology Comment on above:6 week follow up and labs abd B 12 injStart: 04-18-2024 End: 51-56-1738Oipkqry encounter utkrtjnwn16/10/2024 11:00 AM EDT Office Visit [facility] [address] [place] [address] 6 week follow up and labs abd B 12 injNortJohn D. [facility]ell [facility] Affairs [facility] LaboratoryComment on above:6 week follow up and labs abd B 12 inj Start: 04-16-2024 End: 20-85-7917VEK W Auto Differential panel - BloodCOMPLETE BLOOD COUNT AND DIFFERENTIAL Lab Routine Megaloblastic anemia due to vitamin B12 deficiency Chronic ITP (idiopathic thrombocytopenia) (HCC) Expected: 04/16/2024 (Approximate), Expires: 03/05/2025[facility] ClinicComment on above:Expected: 04/16/2024 (Approximate), Expires: 03/05/2025Start: 04-16-2024 End: 16-55-5971Xqrfjcrnm (Vitamin B12) [Mass/volume] in Serum or PlasmaVITAMIN B12 Lab Routine Megaloblastic anemia due to vitamin B12 deficiency Expected: 04/16/2024 (Approximate), Expires: 03/05/2025[facility] ClinicComment on above: Expected: 04/16/2024 (Approximate), Expires: 03/05/2025Start: 04-16-2024 End: 69-33-2191Cgbrwrhyvhxam metabolic 2000 panel - Serum or PlasmaCOMPREHENSIVE METABOLIC PANEL Lab Routine Megaloblastic anemia due to vitamin B12 deficiency Expected: 04/16/2024 (Approximate), Expires: 03/05/2025[facility] ClinicComment on above:Expected: 04/16/2024 (Approximate), Expires: 03/05/2025Start: 04-16-2024 End: 37-73-8436Vxdfarhsyculnt (EPO) [Units/volume] in Serum or Plasma ERYTHROPOIETIN/EPO Lab Routine Megaloblastic anemia due to vitamin B12 deficiency Expected: 04/16/2024 (Approximate), Expires: 07/16/2024[facility] Work Phone: Comment on above:Expected: 04/16/2024 (Approximate), Expires: 07/16/2024Start: 04-16-2024 End: 48-89-1281Pgyxcakd [Mass/volume] in Serum or PlasmaFERRITIN Lab Routine Megaloblastic anemia due to vitamin B12 deficiency Expected: 04/16/2024 (Approx imate), Expires: 03/05/2025[facility] ClinicComment on above:Expected: 04/16/2024 (Approximate), Expires: 03/05/2025Start: 04-16-2024 End: 10-96-2800Usrxst [Mass/volume] in Serum or PlasmaFOLATE, SERUM Lab Routine Megaloblastic anemia due to vitamin B12 deficiency Expected: 04/16/2024 (A pproximate), Expires: 03/05/2025[facility] ClinicComment on above:Expected: 04/16/2024 (Approximate), Expires: 03/05/2025Start: 04-16-2024 End: 62-05-5513Pzej and Iron binding capacity panel - Serum or PlasmaIRON AND TIBC Lab Routine Megaloblastic anemia due to vitamin B12 deficiency Expected: 04/16/2024 (Approximate), Expires: 03/05/2025[facility] ClinicComment on above: Expected: 04/16/2024 (Approximate), Expires: 03/05/2025Start: 04-16-2024 End: 67-19-3390BQFADCRLTDNN COUNTRETICULOCYTE COUNT Lab Routine Megaloblastic anemia due to vitamin B12 deficiency Expected: 04/16/2024 (Approximate), Expires: 07/16/2024[facility] ClinicComment on above:Expected: 04/16/2024 (Approximate), Expires: 07/16/2024Start: 04-09-2024 End: 04-09-2025 reactive protein [Mass/volume] in Serum or PlasmaC-reactive protein Lab Routine Left leg pain Expected: 04/09/2024 (Approximate), Expires: 04/09/2025[facility] HealthcareComment on above:Expected: 04/09/2024 (Approximate), Expires: 04/09/2025Start: 04-09-2024 End: 46-01-5864Ubqelfuzmzd sedimentation rateSedimentation rate, automated Lab Routine Left leg pain Expected: 04/09/2024 (Approximate), Expires: 04/09/2025 [facility] HealthcareComment on above:Expected: 04/09/2024 (Approximate), Expires: 04/09/2025Start: 04-09-2024 End: 61-14-8936LU Whole body Bone 3 Phase ViewsNM bone 3 phase Imaging Routine Left leg pain Expected: 04/09/2024 (Approximate), Expires: 04/09/2025[facility] HealthcareComment on above:Expected: 04/09/2024 (Approximate), Expires: 04/09/2025Start: 04-09-2024 End: 10-47-6355Kfzefjo encounter iaygogsdv06/01/2024 10:15 AM EDT Office Visit [facility] [address] [place] [address] Blaise Alex PA [address] [facility] [address] [place] [address] [facility]THOPAEDICSStart: 04-05-2024 End: 12-56-7026Gekfdqbejgu [Units/volume] in Serum or PlasmaTSH Lab Routine Disease of thyroid gland (CMS/HCC) Expected: 04/05/2024 (Approximate), Expires: 04/05/2025[facility] Work Phone: Comment on above:Expected: 04/05/2024 (Approximate), Expires: 04/05/2025Start: 04-05-2024 End: 18-12-0941Ywbglpyhw (T4) free [Mass/volume] in Serum or PlasmaT4, free Lab Routine Disease of thyroid gland (CMS/HCC) Expected: 04/05/2024 (Approximate), Expires: 04/05/2025[facility] HealthcareComment on above:Expected: 04/05/2024 (Approximate), Expires: 04/05/2025Start: 04-05-2024 End: 87-50-4771Jqydedbiphmqgewq (T3) Free [Mass/volume] in Serum or PlasmaT3, free Lab Routine Disease of thyroid gland (CMS/HCC) Expected: 04/05/2024 (Approximate), Expires: 04/05/2025[facility] HealthcareComment on above:Expected: 04/05/2024 (Approximate), Expires: 04/05/2025Start: 04-04-2024 End: 13-78-0420Vxwfybbaif A1c/Hemoglobin.total in BloodHemoglobin A1c Lab Routine Elevated glucose level Expected: 04/04/2024 (Approximate), Expires: 04/04/2025[facility] Work Phone: Comment on above:Expected: 04/04/2024 (Approximate), Expires: 04/04/2025Start: 04-04-2024 End: 69-11-7254SM Breast - bilateral ScreeningBilateral screening mammogram Imaging Routine Encounter for screening mammogram for malignant neoplasm of breast Expected: 04/04/2024 (Approximate), Expires: 06/04/2025[facility] Comment on above:Expected: 04/04/2024 (Approximate), Expires: 06/04/2025Start: 04-04-2024 End: 68-96-2099Pqnudpbwwrth/Creatinine panel in random UrineMicroalbumin / creatinine, urine ratio Lab Routine Essential hypertension (CMS/HCC) Expected: 04/04/2024 (Approximate), Expires: 04/04/2025[facility] HealthcareComment on above: Expected: 04/04/2024 (Approximate), Expires: 04/04/2025Start: 04-04-2024 End: 17-04-2093KN Heart Perfusion W adenosine and W radionuclide IVSTRESS NUCLEAR MEDICINE LEXISCAN Cardiac Nuclear Medicine Routine Essential hypertension (CMS/HCC) Coronary artery disease involving 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 (CMS/HCC) Other chest pain Expected: 04/04/2024 (Approximate), Expires: 04/04/2026[facility] HealthcareComment on above: Expected: 04/04/2024 (Approximate), Expires: 04/04/2026Start: 04-04-2024 End: 51-41-5262Dwxzqkjmcfd [Units/volume] in Serum or PlasmaTSH Lab Routine Disease of thyroid gland (CMS/HCC) Expected: 04/04/2024 (Approximate), Expires: 04/04/2025[facility] HealthcareComment on above:Expected: 04/04/2024 (Approximate), Expires: 04/04/2025Start: 04-04-2024 End: 57-00-9028Biusuxxlv (T4) free [Mass/volume] in Serum or PlasmaT4, free Lab Routine Disease of thyroid gland (CMS/HCC) Expected: 04/04/2024 (Approximate), Expires: 04/04/2025[facility] HealthcareComment on above:Expected: 04/04/2024 (Approximate), Expires: 04/04/2025Start: 04-04-2024 End: 85-99-1699Zuppnbpqwc complete panel - UrineUrinalysis with reflex microscopic (clean catch) Lab Routine Essential hypertension ([facility]/HCC) Expected: 04/04/2024 (Approximate), Expires: 04/04/2025[facility] HealthcareComment on above: Expected: 04/04/2024 (Approximate), Expires: 04/04/2025Start: 04-04-2024 End: 64-17-4525Eblkdub encounter ofhyvyptb77/26/2024 9:40 AM EDT Office Visit [facility] [address] [place] [address] Stephanie Dumont NP [address] [address] [facility] FMStart: 03-15-2024 End: 28-12-8542QFX W Auto Differential panel - BloodCOMPLETE BLOOD COUNT AND DIFFERENTIAL Lab Routine Chronic ITP (idiopathic thrombocytopenia) (HCC) Es sential hypertension Obstructive sleep apnea syndrome Stage 3b chronic kidney disease (HCC) Expected: 03/15/2024 (Approximate), Expires: 02/01/2025[facility] ClinicComment on above:Expected: 03/15/2024 (Approximate), Expires: 02/01/2025 Start: 03-15-2024 End: 64-89-1527Zcmpytpzuduza metabolic 2000 panel - Serum or PlasmaCOMPREHENSIVE METABOLIC PANEL Lab Routine Chronic ITP (idiopathic thrombocytopenia) (HCC) Essentialhypertension Obstructive sleep apnea syndrome Stage 3b chronic kidney disease (HCC) Expected: 03/15/2024 (Approximate), Expires: 02/01/2025[facility] ClinicComment on above:Expected: 03/15/2024 (Approximate), Expires: 02/01/2025 Start: 03-15-2024 End: 83-61-8163Iqeetio dehydrogenase [Enzymatic activity/volume] in Serum or PlasmaLACTATE DEHYDROGENASE Lab Routine Chronic ITP (idiopathic thrombocytopenia) (HCC) Essential hypertension Obstructive sleep apnea syndrome Stage 3b chronic kidney disease (HCC) Expected: 03/15/2024 (Approximate), Expires: 02/01/2025[facility] Work Phone: Comment on above:Expected: 03/15/2024 (Approximate), Expires: 02/01/2025Start: 03-15-2024 End: 12-61-4912Vufekq-up wrdonxnpy74/06/2024 1:15 PM EDT Visit (SP) Office Hematology/Oncology [address] [place] [phone] Rinku Dupree MD [address] [place] [address] 6 week follow up and labsHematology/OncologyComment on above: 6 week follow up and labsStart: 03-15-2024 End: 73-38-9805Agcuabl encounter /06/2024 1:00 PM EDT Office Visit [facility] [address] [place] [address] 6 week follow up and labsNortJohn D. [facility]ell [facility] LaboratoryComment on above:6 week follow up and labsStart: 78-62-3397Kopme-19 Vaccine ( season)Covid-19 Vaccine ( season)[facility]: 98-23-4254Gxkamhbxr vaccinationInfluenza Vaccine (#1)[facility]: 03-04-2024 End: 32-49-6459Akmfggr encounter procedureNOAMERICAN HOSPITAL ASSOCIATION FMComment on above:Arrived Start: 02-26-2024 End: 37-02-0263Vacfyupkrfmsvg 2D completeEchocardiogram 2D complete Echocardiography Routine Calcification of aortic valve Coronary artery disease involving 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 (CMS/HCC) Expected: 02/26/2024 (Approximate), Expires: 02/25/2026[facility] Comment on above:Expected: 02/26/2024 (Approximate), Expires: 02/25/2026Start: 02-26-2024 End: 46-43-7673SR Thyroid glandUS thyroid Imaging Routine Thyroid nodule (CMS/HCC) Expected: 02/26/2024 (Approximate), Expires: 02/25/2025[facility] Work Phone: Comment on above:Expected: 02/26/2024 (Approximate), Expires: 02/25/2025Start: 02-06-2024 End: 08-82-3683Mqtfvxp encounter vnbnimplp32/30/2024 2:15 PM EDT Office Visit [facility] [address] [place] [address] [place] [address] [place] [address] [facility]24 End: 25-81-6661Kzdirp-up /26/2024 1:30 PM EDT Visit (SP) Office Hematology/Oncology [address] [place], [place] [phone] Rinku Dupree MD [address] [place] [address] 6 week follow up and labsHematology/OncologyComment on above: 6 week follow up and labsStart: 02-02-2024 End: 22-74-3200Ybhoual encounter procedureNoWest [facility] LaboratoryComment on above:11/28-Lvm to schedule appts for outside lab orders & EKG from Dr Royal-already scanned &entered6 week follow up and labsStart: 01-05-2024 End: 56-98-0619Vocpco-up nnolkgdto53/28/2024 11:45 AM EDT Visit (SP) Office Hematology/Oncology [address] [place] [address] Rinku Dupree MD [address] [place] [address] 6 week follow up and labsHematology/OncologyComment on above: 6 week follow up and labsStart: 01-05-2024 End: 78-51-6778Vgihzuz encounter [facility] LaboratoryComment on above:6 week follow up and labs11/28-Lvm to schedule appts for outside lab orders & EKG from Dr Royal-already scanned &entered Start: 01-02-2024 End: 82-76-9497Nqsmblh encounter acckntumk51/25/2024 1:15 PM EDT Office Visit [facility] [address] [place] [phone] [place] [address] [place] [address] [facility]: 12-18-2023 End: 67-28-7096Nntb mastoidect ntc/rcnsted canal wall ocrTympanomastoidectomy Cholesteatoma of left ear 12/18/2023 7:45 AM EDTVirtual CARLOTTA Sheikh ORStart: 11-14-2023 End: 84-44-0980Nygpwuj for Pre-Admission Testing VisitRequest for Pre-Admission Testing Visit Procedures Routine Cholesteatoma of left ear Expected: 11/14/2023 (Approximate), Expires: 11/13/2024[facility] Service Area Work Phone: Comment on above:Expected: 11/14/2023 (Approximate), Expires: 11/13/2024Start: 10-13-2023 End: 27-37-4720HYE W Auto Differential panel - BloodCBC + DIFF Lab Routine Chronic ITP (idiopathic thrombocytopenia) (HCC) Expected: 10/13/2023, Expires: 01/12/2024[facility] Work Phone: Comment on above:Expected: 10/13/2023, Expires: 01/12/2024Start: 10-13-2023 End: 37-88-5598Bxhddrxpmypme metabolic 2000 panel - Serum or PlasmaCOMP METABOLIC PANEL Lab Routine Chronic ITP (idiopathic thrombocytopenia) (HCC) Expected: 10/13/2023, Expires: 01/12/2024[facility] Work Phone: Comment on above:Expected: 10/13/2023, Expires: 01/12/2024Start: 63-30-5860XYWEV-19 Vaccine ()COVID-19 Vaccine ()[facility]: [facility] End: 28-31-3280Jobwyql encounter vxysjvwci67/14/2024 10:00 AM EST Office Visit [facility] [address] [address] Mar Mayo MD [address] [address] [facility] CI ENTStart: 17-64-2139OuivohtoybsXXBFIBHJGNU [facility]: 29-17-5103FZEFVSYXCC CANCER SCREENINGCOLORECTAL CANCER SCREENINGSelect Medical [facility]: 37-04-1065Oezrqspsm for malignant neoplasm of colonSelect Medical [facility]: 21-41-0171Iunno-19 Vaccine ( season) Covid-19 Vaccine ()[facility]: 07-17-2023 End: 33-11-8348RIV W Auto Differential panel - BloodCBC + DIFF Lab Routine Chronic ITP (idiopathic thrombocytopenia) (HCC) Essential hypertension Expected: 07/17/2023 (Approximate), Expires: 10/16/2023[facility] Work Phone: Comment on above:Expected: 07/17/2023 (Approximate), Expires: 10/16/2023Start: 07-17-2023 End: 28-06-9569Dydppmnkfvwjs metabolic 2000 panel - Serum or PlasmaCOMP METABOLIC PANEL Lab Routine Chronic ITP (idiopathic thrombocytopenia) (HCC) Essential hypertension Expected: 07/17/2023 (Approximate), Expires: 10/16/2023 [facility] Work Phone: Comment on above:Expected: 07/17/2023 (Approximate), Expires: 10/16/2023Start: 34-77-7341Zuxyjse Directive DiscussionAdvance Directive DiscussionSelect [facility]: 35-29-5864Awgjiqivfv Health Screening Behavioral Health ScreeningSelect Medical [facility]: 56-36-0947Qochtwkdyg AssessmentDepression AssessmentSelect Medical [facility]: 04-20-2023 End: 20-93-8535AOA W Auto Differential panel - BloodCBC + DIFF Lab Routine Chronic ITP (idiopathic thrombocytopenia) (HCC) Expected: 04/20/2023 (Approxi mate), Expires: 04/19/2024[facility] Work Phone: Comment on above:Expected: 04/20/2023 (Approximate), Expires: 04/19/2024Start: 04-20-2023 End: 65-47-1278Dimzxdbntbfmu metabolic 2000 panel - Serum or PlasmaCOMP METABOLIC PANEL Lab Routine Chronic ITP (idiopathic thrombocytopenia) (HCC) Expected: 04/20/2023 (Approximate), Expires: 04/19/2024[facility] Work Phone: Comment on above:Expected: 04/20/2023 (Approximate), Expires: 04/19/2024Start: 04-20-2023 End: 71-62-4986Pgipdhf dehydrogenase [Enzymatic activity/volume] in Serum or PlasmaLD LACTATE DEHYDRO Lab Routine Chronic ITP (idiopathic thrombocytopenia) (HCC) Expected: 04/20/2023(Approximate), Expires: 04/19/2024[facility] Work Phone: Comment on above:Expected: 04/20/2023 (Approximate), Expires: 04/19/2024Start: 14-40-8461Iwyrn-19 Vaccine ( season)Covid- 19 Vaccine ()[facility]: 27-40-3467Zzqmjhbgg vaccinationSelect Medical [facility], [place]: 53-18-8439Iwxop depression screening assessmentDEPRESSION SCREENINGSelect Medical [facility] [place]: 07-29-7631Ohmhn depression screening assessmentDEPRESSION SCREENINGSelect Medical [facility] [place]: 08-04-2022 End: 76-52-2587RVL W Auto Differential panel - BloodCBC + DIFF Lab Routine Chronic ITP (idiopathic thrombocytopenia) (HCC) Expected: 08/04/2022 (Approxi mate), Expires: 06/23/2023[facility] Work Phone: Comment on above:Expected: 08/04/2022 (Approximate), Expires: 06/23/2023Start: 08-04-2022 End: 24-32-4935Vzbisgkhbidet metabolic 2000 panel - Serum or PlasmaCOMP METABOLIC PANEL Lab Routine Chronic ITP (idiopathic thrombocytopenia) (HCC) Expected: 08/04/2022 (Approximate), Expires: 06/23/2023[facility] Work Phone: Comment on above:Expected: 08/04/2022 (Approximate), Expires: 06/23/2023Start: 08-04-2022 End: 54-70-4590Jdvvqhy dehydrogenase [Enzymatic activity/volume] in Serum or PlasmaLD LACTATE DEHYDRO Lab Routine Chronic ITP (idiopathic thrombocytopenia) (HCC) Expected: 08/04/2022(Approximate), Expires: 06/23/2023[facility] Work Phone: Comment on above:Expected: 08/04/2022 (Approximate), Expires: 06/23/2023Start: 08-04-2022 End: 30-13-9694Anotvth Ab [Presence] in Serum by ImmunoassayANA PANEL BLOOD SCRN Lab Routine Systemic lupus erythematosus, unspecified SLE type, unspecified org an involvement status (HCC) Expected: 08/04/2022 (Approximate), Expires: 10/04/2022[facility] Work Phone: Comment on above:Expected: 08/04/2022 (Approximate), Expires: 10/04/2022Start: 63-64-1570GJZWPAP DIRECTIVE DISCUSSIONADVANCE DIRECTIVE DISCUSSIONSelect Medical [facility] [place]: 70-48-5852DPCRQAEVIM ASSESSMENT DEPRESSION ASSESSMENTSelect [facility] [place]: 50-05-8016XRZLG-19 VACCINE (5 - Booster for Moderna series)COVID-19 VACCINE (5 - Booster for Moderna series) [facility] [place]: 28-26-9390VTPXZ-19 VACCINE (5 - Booster for Moderna series)COVID-19 VACCINE (5 - Booster for Moderna series)[facility] [place]: 14-09-1690BIAJE-19 VACCINE (5 - Moderna risk series)COVID-19 VACCINE (5 - Moderna risk series)[facility] [place]: 70-63-9064Outjy 1996 panel - Serum or PlasmaLipid ScreeningSelect Medical [facility], [place]: 03-37-5584Ppxbu panelLipid ScreeningSelect [facility] [place]: 72-84-8022DFUWD SCREENLIPID SCREENSelect [facility] [place]: 03-25-2022 End: 18-16-1796NWI W Auto Differential panel - BloodCBC + DIFF Lab Routine Chronic ITP (idiopathic thrombocytopenia) (HCC) Essential hypertension Obstru ctive sleep apnea syndrome Systemic lupus erythematosus, unspecified SLE type, unspecified organ involvement status (HCC) Expected: 03/25/2022, Expires: 05/25/2022[facility] Work Phone: Comment on above:Expected: 03/25/2022, Expires: 05/25/2022tart: 03-25-2022 End: 26-53-7540Ejoxkzbywxfjk metabolic 2000 panel - Serum or PlasmaCOMP METABOLIC PANEL Lab Routine Chronic ITP (idiopathic thrombocytopenia) (HCC) Essential hypertension Obstructive sleep apnea syndrome Systemic lupus erythematosus, unspecified SLE type, unspecified organ involvement status (HCC) Expected: 03/25/2022, Expires: 05/25/2022[facility] Work Phone: Comment on above:Expected: 03/25/2022, Expires: 05/25/2022tart: 31-84-8947Mtlgptwmj vaccinationINFLUENZA (#1)[facility] Start: 01-28-2022 End: 21-16-5202ACQ W Auto Differential panel - BloodCBC + DIFF Lab Routine Hypertension, unspecified type Chronic ITP (idiopathic thrombocytopenia) (HCC) Essential hypertension Obstructive sleep apnea syndrome Lung nodules Systemic lupus erythematosus, unspecified SLE type, unspecified organ involvement status (HCC) Expected: 01/28/2022, Expires: 03/30/2022[facility] Work Phone: Comment on above:Expected: 01/28/2022, Expires: 03/30/2022tart: 01-28-2022 End: 52-99-3955Aegpbbezqhorj metabolic 2000 panel - Serum or PlasmaCOMP METABOLIC PANEL Lab Routine Hypertension, unspecified type Chronic ITP (idiopathic thrombocytopenia) (HCC) Essential hypertension Obstructive sleep apnea syndrome Lung nodules Systemic lupus erythematosus, unspecified SLE type, unspecified organ involvement status (HCC) Expected: 01/28/2022, Expires: 03/30/2022[facility] Work Phone: Comment on above:Expected: 01/28/2022, Expires: 03/30/2022tart: 01-28-2022 End: 64-58-3209Elzwxcw dehydrogenase [Enzymatic activity/volume] in Serum or PlasmaLD LACTATE DEHYDRO Lab Routine Hypertension, unspecified type Chronic ITP (idiopathic thrombocytopenia) (HCC) Essential hypertension Obstructive sleep apnea syndrome Lung nodules Systemic lupus erythematosus, unspecified SLE type, unspecified organ involvement status (HCC) Expected: 01/28/2022, Expires: 03/30/2022[facility] Work Phone: Comment on above:Expected: 01/28/2022, Expires: 03/30/2022tart: 12-09-2021 End: 57-86-2623WIX W Auto Differential panel - BloodCBC + DIFF Lab Routine Chronic ITP (idiopathic thrombocytopenia) (HCC) Expected: 12/09/2021 (Approxi mate), Expires: 10/28/2022[facility] Work Phone: Comment on above:Expected: 12/09/2021 (Approximate), Expires: 10/28/2022Start: 12-09-2021 End: 81-48-3704Drpcrhtmmkcxm metabolic 2000 panel - Serum or PlasmaCOMP METABOLIC PANEL Lab Routine Chronic ITP (idiopathic thrombocytopenia) (HCC) Expected: 12/09/2021 (Approximate), Expires: 10/28/2022[facility] Work Phone: Comment on above:Expected: 12/09/2021 (Approximate), Expires: 10/28/2022Start: 12-09-2021 End: 78-01-4869Glzocbx dehydrogenase [Enzymatic activity/volume] in Serum or PlasmaLD LACTATE DEHYDRO Lab Routine Chronic ITP (idiopathic thrombocytopenia) (HCC) Expected: 12/09/2021(Approximate), Expires: 10/28/2022[facility] Work Phone: Comment on above:Expected: 12/09/2021 (Approximate), Expires: 10/28/2022Start: 89-08-8886QNQER-19 VACCINE (4 - Booster for Moderna series)COVID-19 VACCINE (4 - Booster for Moderna series)[facility]: 06-92-8287OCWWWVA DIRECTIVE DISCUSSIONADVANCE DIRECTIVE DISCUSSIONSelect [facility] [place]: 78-44-4240STEOXPJOVJ ASSESSMENTDEPRESSION ASSESSMENTSelect [facility] [place]: 19-34-8961Qsorvtgki for malignant neoplasm of breastMammogram ScreeningSelect Medical [facility], [place]: 85-62-1901OPQT DENSITYBONE DENSITYSelect [facility] [place]: 18-85-7301Dwgd Density ScreeningBone Density ScreeningSelect [facility] [place]: 28-79-5591Jazfkioeb for osteoporosisSelect Medical [facility] [place]: 23-60-0657VQG High Risk: (Elderly (60+) or Population) (1 - Risk 60-74 years 1-dose series)RSV High Risk: (Elderly (60+) or Population) (1 - Risk 60-74 years 1-dose series)[facility]: 68-54-3124BNT patients and/or patients aged 60+ years (1 - 1-dose 60+ series)RSV patients and/or patients aged 60+ years (1 - 1-dose 60+ series)[facility]: 17-23-1265HIV Vaccine (1 - 1-dose 60+ series)RSV Vaccine (1 - 1-dose 60+ series)[facility] [place]: 2010 RSV Vaccine (1 - Risk 60-74 years 1-dose series)RSV Vaccine (1 - Risk 60-74 years 1-dose series)[facility] [place]: 36-77-1280GYRINRTL VACCINE (1 of 2) SHINGRIX VACCINE (1 of 2)[facility] [place]: 73-34-6241Ikzgwa Vaccines (1 of 2)Zoster Vaccines (1 of 2)[facility]: 12-07-1995 COLOGUARD (FIT-DNA)COLOGUARD (FIT-DNA)[facility] [place]: 12-07-1995 ColonoscopyCOLONOSCOPYSelect [facility] [place]: 88-04-3468VGUIQBIBBQ CANCER SCREENINGCOLORECTAL CANCER SCREENINGSelect [facility] [place]: 28-46-6440VA COLONOGRAPHYCT COLONOGRAPHYSelect [facility] [place]: 70-05-7476OWFLW OCCULT BLOOD FECAL OCCULT BLOODSelect [facility] [place]: 72-12-2282Ielmppcvi for malignant neoplasm of colonSelect Medical [facility] [place]: 45-79-9884XIVPUIWCQFDQDTWTZHHUYOICHX [facility] [place]: 56-97-7002FnfabwwvdckVvvnqufkp ClinicStart: 1990 Screening for malignant neoplasm of breastMammogramUnJoint [facility]: 96-21-2029LVpJ/Tdap/Td Vaccines (1 - Tdap)DTaP/Tdap/Td Vaccines (1 - Tdap)[facility]: 67-08-1458VKGSZOKU VACCINE (1 of 2)SHINGRIX VACCINE (1 of 2)[facility] [place]: 78-22-9217Pjdud microalbumin profileCleMercy Health St. Anne Hospitaltart: 32-42-2238EMLBCH PCP TEAM CHRONIC DISEASE VISITANNUAL PCP TEAM CHRONIC DISEASE VISITSelect [facility] [place]: 98-17-2225Umugibe ScreeningAnxiety ScreeningSelect [facility] [place]: 92-49-9901LB CONTROLLED (<130/80)BP CONTROLLED (<130/80)[facility] [place]: 1968 Depression ScreeningDepression ScreeningSelect [facility] [place]: 1968 Hepatitis C screeningHepatitis C ScreeningMiddletown Hospital Start: 00-05-7891Qpgrgfqyx for malignant neoplasm of cervixCervical Cancer ScreeningSelect [facility] [place]: 19-05-9828HOZ Vaccines (1 of 1 - Standard series)MMR Vaccines (1 of 1 - Standard series)[facility] Start: 98-49-8883Goont panelLipid PanelUnLakeHealth TriPoint Medical CenterStart: 05-30-1951Medicare Annual Wellness (AWV)Medicare Annual Wellness (AWV)[facility]: 05-30[facility]1951Medicare Annual Wellness VisitMedicare Annual Wellness Visit (AWV)[facility]Start: 26-38-3719Yostpcybf for malignant neoplasm of colonNOMS HealthcareStart: 02-76-8762Bhksxqqln for osteoporosisBone Density ScanMiddletown Hospital End: 35-83-6562Gkkfm type and Indirect antibody screen panel - BloodType And Screen Lab Routine 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 As needed (Lab) until discontinued starting 02/05/2025[facility] Service Area Work Phone: Comment on above:As needed (Lab) until discontinued starting 02/05/2025 End: 89-74-5503UPA W Auto Differential panel - BloodCBC + DIFF Lab Routine Chronic ITP (idiopathic thrombocytopenia) (HCC) Obstructive sleep apnea syndrome Every 6 weeks for 9 Occurrences starting 03/31/2022 until 03/31/2023[facility] Work Phone: Comment on above:Every 6 weeks for 9 Occurrences starting 03/31/2022 until 03/31/2023 End: 79-94-9170JXY W Auto Differential panel - BloodCBC + DIFF Lab Routine Chronic ITP (idiopathic thrombocytopenia) (HCC) Every 6 weeks for 9 Occurrences starting 04/20/2023 until 04/19/2024[facility] Work Phone: Comment on above:Every 6 weeks for 9 Occurrences starting 04/20/2023 until 10/11/2024CBC W Auto Differential panel - BloodCBC and differential Lab Routine Left leg pain Ordered: 04/09/2024[facility] Work Phone: Comment on above:Ordered: 04/09/2024 End: 90-02-1863YIL W Auto Differential panel - BloodCOMPLETE BLOOD COUNT AND DIFFERENTIAL Lab Routine Hyperglycemia Chronic ITP (idiopathic thrombocytopenia) (HCC) Megaloblastic anemia due to vitamin B12 deficiency Obstructive sleep apnea syndrome Every 6 weeks for 9 Occurrences starting 04/18/2024 until 04/18/2025 [facility] Work Phone: Comment on above:Every 6 weeks for 9 Occurrences starting 04/18/2024 until 04/18/2025 End: 82-92-9728QPY W Auto Differential panel - BloodCOMPLETE BLOOD COUNT AND DIFFERENTIAL Lab Routine Stage 3b chronic kidney disease (HCC) 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) Every other week for 26 Occurrences starting 11/22/[address] [place] [address] Work Phone: Comment on above:Every other week for 26 Occurrences starting 11/22/2024 until 11/22/2025 End: 86-32-4928Hlqjhlgjcuxkgbhpqs ( test) [Presence] in [facility] Service Area Work Phone: Comment on above:STAT (Lab) for 1 Occurrences starting 12/18/2023 until 12/18/2023 End: 67-43-3052Rslvswolx (Vitamin B12) [Mass/volume] in Serum or PlasmaVITAMIN B12 BLOOD Lab Routine Chronic ITP (idiopathic thrombocytopenia) (HCC) Every 6 weeks for 9 Occurrences starting 04/20/[address] [place] [address] Work Phone: Comggxe on above:Every 6 weeks for 9 Occurrences starting 04/20/2023 until 04/19/2024 End: 92-94-9779Ynkeimism (Vitamin B12) [Mass/volume] in Serum or PlasmaVITAMIN B12 Lab Routine Hyperglycemia Chronic ITP (idiopathic thrombocytopenia) (HCC) Megaloblasticanemia due to vitamin B12 deficiency Obstructive sleep apnea syndrome Every 6 weeks for 9 Occurrences starting 04/18/2024 until 04/18/2025 [facility] HospitalComment on above:Every 6 weeks for 9 Occurrences starting 04/18/2024 until 04/18/2025 End: 65-49-1421Jwqmeroclvwnn metabolic 2000 panel - Serum or PlasmaCOMP METABOLIC PANEL Lab Routine Chronic ITP (idiopathic thrombocytopenia) (HCC) Obstructive sleep apnea syndrome Every 6 weeks for 9 Occurrences starting 03/31/2022 until 03/31/2023[facility] Work Phone: Comment on above:Every 6 weeks for 9 Occurrences starting 03/31/2022 until 03/31/2023 End: 15-98-7740Ggypgxkeqkkue metabolic 2000 panel - Serum or PlasmaCOMP METABOLIC PANEL Lab Routine Chronic ITP (idiopathic thrombocytopenia) (HCC) Every 6 weeks for 9 Occurrences starting 04/20/[address] [place] [address] Work Phone: Comment on above:Every 6 weeks for 9 Occurrences starting 04/20/2023 until 04/19/2024 End: 44-83-1011Junpudzxbmkil metabolic 2000 panel - Serum or PlasmaCOMPREHENSIVE METABOLIC PANEL Lab Routine Hyperglycemia Chronic ITP (idiopathic thrombocytopenia) (HCC) Megaloblastic anemia due to vitamin B12 deficiency Obstructive sleep apnea syndrome Every 6 weeks for 9 Occurrences starting 04/18/2024 until 04/18/2025[facility]Comment [facility] above:Every 6 weeks for 9 Occurrences starting 04/18/2024 until 04/18/2025omprehensive metabolic 2000 panel - Serum or PlasmaParkwood HospitalECG 12 leadECG 12 lead ECG Routine Cholesteatoma of left 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 Preoperative clearance Ordered: 11/26/2024[facility] Work Phone: Comment on above:Ordered: 11/26/2024ECG COMPLETEECG COMPLETE ECG 12/15/2023 11:36 AM [facility] End: 68-71-6293Lsbjxjmj [Mass/volume] in Serum or PlasmaFERRITIN BLD Lab Routine Chronic ITP (idiopathic thrombocytopenia) (HCC) Every 6 weeks for 9 Occurrences starting 04/20/2023 until 04/19/2024[facility] Work Phone: Comment on above:Every 6 weeks for 9 Occurrences starting 04/20/2023 until 04/19/2024 End: 82-93-1179Qitfhebl [Mass/volume] in Serum or PlasmaFERRITIN Lab Routine Hyperglycemia Chronic ITP (idiopathic thrombocytopenia) (HCC) Megaloblastic ane prasanna due to vitamin B12 deficiency Obstructive sleep apnea syndrome Every 6 weeks for 9 Occurrences starting 04/18/2024 until 04/18/2025[facility] HospitalComment on above:Every 6 weeks for 9 Occurrences starting 04/18/2024 until 04/18/2025 End: 48-88-6531Vpykwk [Mass/volume] in Serum or PlasmaFOLATE SERUM Lab Routine Chronic ITP (idiopathic thrombocytopenia) (HCC) Every 6 weeks for 9 Occurrences starting 04/20/[address] [place] [address] Work Phone: Comment on above:Every 6 weeks for 9 Occurrences starting 04/20/2023 until 04/19/2024 End: 10-48-7417Czaduh [Mass/volume] in Serum or PlasmaFOLATE, SERUM Lab Routine Hyperglycemia Chronic ITP (idiopathic thrombocytopenia) (HCC) Megaloblastic anemia due to vitamin B12 deficiency Obstructive sleep apnea syndrome Every 6 weeks for 9 Occurrences starting 04/18/2024 until 04/18/2025[facility] Comment on above:Every 6 weeks for 9 Occurrences starting 04/18/2024 until 04/18/2025 End: 84-30-6291Jlzu and Iron binding capacity panel - Serum or PlasmaIRON + TIBC Lab Routine Chronic ITP (idiopathic thrombocytopenia) (HCC) Every 6 weeks for 9 Occurrences starting 04/20/[address] [place] [address] Work Phone: Comment on above:Every 6 weeks for 9 Occurrences starting 04/20/2023 until 04/19/2024 End: 19-60-5551Zmsw and Iron binding capacity panel - Serum or PlasmaIRON AND TIBC Lab Routine Hyperglycemia Chronic ITP (idiopathic thrombocytopenia) (HCC) Megaloblastic anemia due to vitamin B12 deficiency Obstructive sleep apnea syndrome Every 6 weeks for 9 Occurrences starting 04/18/2024 until 04/18/2025 [facility] HospitalComment on above:Every 6 weeks for 9 Occurrences starting 04/18/2024 until 04/18/2025MG Breast - bilateral ScreeningFirelands Regional Medical CenterPatient referralUniversity Hospitals [facility] Work Phone: Renal function 1999 panel - Serum or PlasmaParkwood HospitalRenal function 1999 panel - Serum or PlasmaParkwood HospitalRenal function 1999 panel - Serum or [facility]ronurgical pathology studyMiddletown Hospital Work Phone: Comment on above:Release Upon Ordering for 1 Occurrences starting 12/18/2023, 1 completedTmpp mastoidect ntc/rcnsted canal wall ocrTympanomastoidectomy Cholesteatoma of left earVirtual AHU A OR Tympanoplasty w/o mastoidec 1st/revj prosth torpTYMPANOPLASTY, WITH OSSICULOPLASTY 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Virtual AHU A ORXR Tibia and Fibula - left 2 ViewsXR tibia fibula 2 views left Imaging Routine Left leg pain 04/09/2024 10:28 [facility] Immunizations Immunization DateImmunizationNotesCare KtnhburfKgtmwmse28-46-3675yyqdvlrws, high dose seasonal, preservative-freeLisa Tim STRAP CUTTING MACHINE OPERATOR Work Phone: [facility] HospitalCgimdzdowr95-83-6035voaoxrwkl virus vaccine, unspecified formulationLisa Tim STRAP CUTTING MACHINE OPERATOR Work Phone: [facility] HospitalRadztairvz50-91-0053gvmqsxduy (HD-IIV4) vaccine, age 65+ yr, high dose, quadrivalent, PF (FLUZONE HIGH-DOSE)Rinku Dupree MD Work Phone: [facility] HospitalJzfbsz06-32-2588pfewstcqb virus vaccine, unspecified formulationJayden Connelly APRN.CNP Work Phone: [phone] [place], [place] [address]Pgisuf21-83-1743dwexyptpn, high-dose, quadrivalent vaccine (FLUZONE HIGH DOSE QUADRIVALENT)Jayden Connelly APRN.DRUG ABUSE WORKER Work Phone: [phone] [place], [place] [address]Dwoamw81-26-2483nnbfwpzix virus vaccine, unspecified formulationRinku Dupree MD Work Phone: [phone] [place], [place] [address]Vtmgaj08-70-3088squowomkh, high-dose, quadrivalent vaccine (FLUZONE HIGH DOSE QUADRIVALENT)Jayden Connelly DEVELOPING MACHINE TENDER.DRUG ABUSE WORKER Work Phone: [phone] [place], [place] [address]Nyhndc93-73-1312LUGDC-20 vaccine, full dose (MODERNA)Jayden Connelly DEVELOPING MACHINE TENDER.DRUG ABUSE WORKER Work Phone: [phone] [place], [place] [address]Ygnjnu47-34-8533YTFHP-23 vaccine, full dose (MODERNA)Jayden Connelly DEVELOPING MACHINE TENDER.DRUG ABUSE WORKER Work Phone: [phone] [place], [place] [address]Zblcmq68-43-8986ptnzciflz, high-dose, quadrivalent vaccine (FLUZONE HIGH DOSE QUADRIVALENT)Jayden Connelly DEVELOPING MACHINE TENDER.DRUG ABUSE WORKER Work Phone: [phone] [place], [place] [address]Qagezk83-99-0809jncljqbpg, high dose seasonal, preservative-freeJuan Josely Godwin DEVELOPING MACHINE TENDER.DRUG ABUSE WORKER Work Phone: [phone] [place], [place] [address]Ueeslg69-23-9449ozbwkxluudrb polysaccharide vaccine, 23 Raymundo Connelly DEVELOPING MACHINE TENDER.DRUG ABUSE WORKER Work Phone: [phone] [place], [place] [address]Olviie11-69-7729uaofjilfi, high dose seasonal, preservative-freeJuan Josely Godwin DEVELOPING MACHINE TENDER.DRUG ABUSE WORKER Work Phone: [phone] [place], [place] [address]Eitbqk67-54-0804xcfemcprnhrm conjugate vaccine, 13 Raymundo Connelly DEVELOPING MACHINE TENDER.DRUG ABUSE WORKER Work Phone: [phone] [place], [place] [address]Jetzzj93-12-9962plozvptqr, high dose seasonal, preservative-freeJuan Josely Godwin DEVELOPING MACHINE TENDER.DRUG ABUSE WORKER Work Phone: [phone] [place], [place] [address]Soolhm55-18-5838mxzwpsmmgtlq conjugate vaccine, 13 Raymundo Connelly DEVELOPING MACHINE TENDER.DRUG ABUSE WORKER Work Phone: [facility] Payers DatePayer CategoryPayerPolicy [id number] Health InsuranceUNITED HEALTHCARE DUAL COMPLETE UNITED HEALTHCARE DUAL COMPLETE [id number] 2023- Present [address] [address] [place] [address] [id number] [id number] 2023Medicare (Managed Care)[id number] [id number] Health [id number] 2022MedicareUHC AARP MEDICARE [facility] MEDICARE HMO [id number] 2021- Present [phone] [address] [address] [place] [address] [id number] 2016MedicareMEDICARE MEDICARE A AND B [id number] 2015-[address]21 [address] [place], [place] [address] [id number]. [id number] 2.16.840.1.617144.3.57[id number] 2.16.840.1.006466.3.57[id number] 2.16840.1.173624.3.57[id number] 2.16.840.1.646640.3.57[id number] 2.16840.1.129090.3.57[id number] 2.16840.1.657321.3.57[id number] 2.16840.1.857850.3.57[id number] 2.16840.1.744750.3.57[id number] 2.16840.1.996396.3.57[id number] 2.16840.1.371417.3.57[id number] 2.16840.1.821550.3.57[id number] 2.16840.1.279986.3.57[id number] 2.16840.1.838467.3.57[id number] 2.16840.1.652747.3.57[id number] 2.16840.1.437039.3.57[id number] 2.16.840.1.678730.3.57[id number] 2.0.1.988931.3.57[id number] 2.0.1.548980.3.57[id number] 2..1.452001.3.57[id number] 2.0.1.941896.3.57[id number] 2..1.473739.3.57[id number] 2..1.302408.3.579.[id number] 2..1.188428.3.579.2.[id number] 2..1.642550.3.579.[id number] 2..1.718593.3.579.2.[id number] 2..1.581335.3.57[id number] 2..1.452311.3.579.2.[id number] 2..1.067329.3.579.2.[id number] 2.0.1.567396.3.579.2.187321-35-3085Yfjiytm8674671 2.0.1.862873.3.579.[id number] 2.0.1.804388.3.579.2.[id number] 2.0.1.649[id number] 2..1.186360.58Smxltyc368430609927 1076924d-9989-428s-t24o-482n784725b8 [id number] 2.0.1.400992.3.579.2.873Hzjlvza72985593 2..1.546350.3.579.2.531 Social History DateTypeDetailFacilityStart: 09-16-2021 End: 28-33-7976Crlczyg smoking status NHISLight tobacco smokerC[facility] History of tobacco useCigarette SmokerSelect Medical [facility], [facility]woodtart: 09-16-2021 End: 86-98-4624Ugeenel use and exposureSmokeless tobacco non-userSelect Medical [facility], Beachwoodtart: 09-16-2021 End: 76-85-9530Pidkyxw intakeCurrent non-drinker of alcohol (finding)[facility]: 01-18-0256Qos Assigned At BirthNot on fileSelect Medical [facility] Clinic [facility] Hospital, Beachwoodtart: 10-18-2021 End: 84-25-3856Cvtuirtg to SARS-CoV-2 (event)Not sureSelect Medical [facility] Clinic [facility], Beachwoodtart: 03-03-2016 End: 37-13-7570Ppvpvqx smoking status NHISSmokes tobacco dailyCleveland Clinic Avon Hospital Start: 01-26-2023 End: 71-70-2753Nxf Assigned At BirthCleveland Clinic Avon HospitalHistory of tobacco use Passive smokerSelect Medical [facility], Beachwoodtart: 05-81-0367Pqm Assigned At BirthL[facility] Hospitalt[facility]: 01-26-2023 End: 68-04-6535Hysrxsu of Social functionSelect Medical [facility] Clinic Rehabilitation Hospital, Beachwoodtart: 09-21-2022 End: 30-20-8083Fnrzs Depression Screening Ullamrluif9Oycbcxmqq ClinicStart: 08-16-2023 End: 43-41-6979Gvderwf intakeLifetime non-drinker (finding)[facility] HealthcareStart: 09-20-2023 End: 23-35-9561Ckdcxin smoking status NHISSmoker (finding)[facility]: 61-80-3775SblKumvce (finding)[facility] HospitalNEGATED: Highlighted rowStart: NINFHistory of tobacco usePassive smoker [facility] Work Phone: Medical Equipment Procedure CodeEquipment CodeEquipment Original TextEquipment IdentifierDates [place], Centered, Total - Sn/A - [id number]: 02-05-2025 Goals DatePatient GoalDesired Activity/StatePersonal health goal Functional Status HgurDzxjjvsfnfYjqhfrAjgdxasp55-18-6859Dybswjpk - suicide severity rating scale screener - recent [C-SSRS][facility] Work Phone: [phone]dcvtyn Health Questionnaire 2 item (PHQ-2) [Reported][facility] Work Phone: 1([phone]) [phone]usrrzhwp depression scale (GDS).short version panelSelect Specialty HospitalVccndqlioi49-45-0532Gtmbchh Health Questionnaire 2 item (PHQ- 2) [Reported]Select Specialty HospitalJdzoqnmvqy05-34-5163Pju you deaf, or do you have serious difficulty hearingNo 08/04/2022 2:24 PM Jayden Berrios APRN.STEPH [facility] Work Phone: [phone] 249-6488732439-57-7447Hzh you blind, or do you have serious difficulty seeing, even when wearing glassesNo 08/04/2022 2:24 PM Jayden Berrios APRN.STEPH [facility]01-26-2023Do you have serious difficulty walking or climbing stairsNo 08/04/2022 2:24 PM Jayden Berrios APRN.STEPH [facility]01-26-2023Do you have difficulty dressing or bathingNo 08/04/2022 2:24 PM Jayden Berrios APRN.STEPH [facility]01-26-2023 Because of a physical, mental, or emotional condition, do you have difficulty doing errands alone such as visiting a physician's office or shoppingNo 08/04/2022 2:24 PM Jayden Berrios APRN.CNP [facility] Mental Status GudbCmrkhszmjgMdgkocPwhhldxe65-00-7518Xozacrf of a physical, mental, or emotional condition, do you have serious difficulty concentrating, remembering, or making decisionsNo 08/04/2022 2:24 PM Jayden Berrios APRN.STEPH [facility] Clinical Notes 05-12-2021 to 05-09-2025 Note Date & HbwbLmcrNwbdjktr85-22-1573 NoteOhio Valley Hospital10-15-2025 History of Present illness Narrative* Mar Mayo MD - 04/23/2025 11:10 AM EDT Subjective [...] Thyroid nodule 02/26/2024 Coronary artery disease involving [place] coronary artery of ch[place]ick heart 02/26/2024 Calcification of aortic valve 02/26/2024 PAH (pulmonary artery hypertension) ([facility]) 03/27/2024 Megaloblastic anemia due to vitamin B12 deficiency 03/05/2024 Encounter for screening mammogram for malignant neoplasm of breast 04/04/2024 Other chest pain 04/04/2024 Posterior left knee pain 04/04/2024 Pre-diabetes 04/05/2024 Diarrhea 04/24/[address] lung nodules on CT 05/07/2024 Encounter for subsequent annual wellness visit (AWV) in Medicare patient 05/14/2024 Chronic kidney disease, stage 3b ([facility]) 12/25/2024 DARYL (acute kidney injury) 01/06/2025 Lumbar spondylosis 01/15/2025 Abdominal aortic aneurysm (AAA) without rupture 01/21/2025 Resolved Ambulatory Problems Diagnosis Date Noted Lupus 03/03/2016 Ruptured ear drum, left 06/06/2023 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 Uhytakr-Tqjfyt-Wvqcs Pertussis Rash [4] Current Outpatient Medications on [...] if needed ergocalciferol (Vitamin D-2) 1.25 MG (66707 UT) capsule Take 50,000 Units by mouth [...] file prior to visit. documented in this encounterSelect Specialty HospitalYquhvmlesw98-32-3291 Telephone encounter Note* Telephone Encounter - Rosalva Mayo - 04/02/2025 2:11 PM EDT Called pt/pt verbalized understanding. NOMS Lhgsdoeuyw81-34-0997 Miscellaneous Notes* Telephone Encounter - Rosalva Mayo - 04/02/2025 2:11 PM EDT Called pt/pt verbalized understanding. * Telephone Encounter - Mar Mayo MD - 04/02/2025 1:59 PM EDT I can try something less likely to work, but if it doesn't there is no alternative * Telephone Encounter - Rosalva Mayo - 04/02/2025 1:37 PM EDT Pt called in/the rx that was prescribed to the pt from [facility] is being denied by her insurance. It is $110.00 and she cannot afford it. Is there something else that she can use? documented in this encounterNOMS Qkjbukpbch88-25-6464 Telephone encounter Note* Telephone Encounter - Mar Mayo MD - 04/02/2025 1:59 PM EDT I can try something less likely to work, but if it doesn't there is no alternative NOMS Jyooleycnl65-64-5084 Telephone encounter Note* Telephone Encounter - Rosalva Mayo - 04/02/2025 1:37 PM EDT Pt called in/[facility] by her insurance. It is $110.00 and she cannot afford it. Is there something else that she can use? NOMS Kkcnnxezgc09-60-6799 History of Present illness Narrative* Mar Mayo MD - 04/02/2025 11:10 AM EDT Subjective Patient ID: Andrei Fish is a 74 y.o. female who presents for Thyroid Nodule (6 month ultrasound 03/19/25 [facility]) Thyroid US shows a 13mm RUL nodule compared to 15, a 22mm RML nodule compared to 20, and a 20mm LMLnodule compared to 23. Family History Problem Relation Name Age of Onset Diabetes Mother Hypertension Mother Heart disease Mother Cancer Father Breast cancer Sister Heart disease Sibling Cancer Sibling Active Ambulatory Problems Diagnosis Date Noted Chronic ITP (idiopathic thrombocytopenia) ([facility]) 05/26/2016 Disease of thyroid gland 06/28/2022 Essential [...] Thyroid nodule 02/26/2024 Coronary artery disease involving [place] coronary artery of [place] heart 02/26/2024 Calcification of aortic valve 02/26/2024 [...] patient 05/14/2024 Chronic kidney disease, stage 3b ([facility]) 12/25/2024 DARYL (acute kidney injury) 01/06/2025 Lumbar spondylosis 01/15/2025 Abdominal aortic aneurysm (AAA) without rupture 01/21/2025 Resolved Ambulatory Problems Diagnosis Date Noted Lupus 03/03/2016 Ruptured ear drum, left 06/06/2023 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 Azaogzm-Yxnviq-Jxeqp Pertussis Rash Current Outpatient Medications on File [...] if needed ergocalciferol (Vitamin D-2) 1.25 MG (26330 UT) capsule Take 50,000 Units by mouth [...] Donot crush or chew. 45 tablet 1 No [...] US in 6 mo. documented in this encounterSelect Specialty HospitalTjzzlcpkzm70-21-5773 NoteOhio Valley Hospital09-04-2025 Evaluation note* Diagnosis Onset Date Resolution Status Admit Date AAA (abdominal aortic aneurysm) without rupture acuteSept2024 9:58amChronic ITP (idiopathic thrombocytopenia)acute March 13, 2025 9:58amCKD (chronic kidney disease) stage 3, GFR 30-59 ml/min acuteSept2024 9:58amEssential hypertensionacuteSept2024 9:58amLeft ankle sprainacuteSeptember 2024 9:58amObesity due to excess caloriesacuteSept2024 9:58amRight wrist sprainacuteSept2024 9:58amAAA (abdominal aortic aneurysm) without ruptureacuteOctober 2024 10:28amAtherosclerosis of [place] coronary artery of ch[place]ick heartacute April 24, 2025 10:28amBreast cancer screening by mammogramacuteOctober 2024 10:28amChronic ITP (idiopathic thrombocytopenia)acuteOctober 2024 10:28amCKD (chronic kidney disease) stage 3, GFR 30-59 ml/minacuteOctober 2024 10:28amEssential hypertensionacuteOctober 2024 10:28amObesity due to excess caloriesacuteOctober 2024 10:28amOSA (obstructive sleep apnea)acute April 24, 2025 10:28amAnemia of renal diseaseacuteOctober 2024 1:03pm Chronic ITP (idiopathic thrombocytopenia)acuteOctober 2024 1:03pmCKD (chronic kidney disease) stage 3, GFR 30-59 ml/minacuteOctober 2024 1:03pm Complex renal cystacuteOctober 2024 1:03pmHypertensive chronic kidney disease with stage 1 through stage 4 chronic kiacuteOctober 2024 1:03pm HyperuricemiaacuteOctober 2024 1:03pmLupusacuteOctober 2024 1:03pm ADALBERTO (obstructive sleep apnea)acuteOctober 2024 1:03pmSecondary hyperparathyroidismacuteOctober 2024 1:03pm [facility] Work Phone: 1([phone]) 605-165108-08-2025 NoteOhio Valley Hospital08-08-2025 History of Present illness Narrative* Jayden Connelly, MIRIAM.DRUG ABUSE WORKER - 02/14/2025 2:43 PM EDT Images from the original note were not included. NAME: Andrei Fish NO.: [id number] DATE OF SERVICE: January 03, 2025 (Godwin) Some elements in this clinic note that are critical to medical decision making have been carefully reviewed and included from a prior clinic note dated: November 22, 2024 (Roxy) Additional Clinicians involved in Andrei Miranda Fish's care: Dr. Deluna, Dr. Susanna Graf [...] ITP. Currently managed with B12 injections and Aranespevery 2 weeks. Currently on Tavalisee 100 mg [...] She is planning a two-week trip to [place] and requests hydration supplements due to the expected hotweather. She denies a history of diabetes but [...] count and hemoglobin levels remaining below 11 g/dL.She is due for her B12 injection, which [...] intake. She is scheduled to see her nut feeder in January and her primary care physician [...] is going to follow up with her STRAP CUTTING MACHINE OPERATOR regarding pulmonary nodule that has been [...] having a mammogram and dexa scan at [facility] per her PCP. She states that [...] 08/29/2022 and then a follow-up with her nut feeder on 09/07/2022. Overall, she is doing well [...] as they are slightlyincreased. Got back from [place] and saw her sisters and had a [...] why she was going to see a nut feeder for her blood pressure. Patient also has [...] which included preparing to see the patient, zxsq-gh-ogqj patient care, completing clinical documentation, performing a medically appropriate examination, counseling and educating the patient/family/caregiver, ordering medications, tests, or procedures, independently interpreting results (not separately reported), communicating results to the patient/family/caregiver, and care coordination (not separately reported). Jayden Connelly APRN.CNP Hematology and Oncology Services Provided at: [place], [place] CC: Dr. Atif Graf documented in this encounterC[facility]07-30-2025 cancer registry manager Note* Significant Event - Mei Mayorga RN - 02/05/2025 4:07 PM EDT Pt and at bedside educated on and provided with discharge instructions. Both state an understanding of the teaching and all questions answered at this time. [facility]07-30-2025 Miscellaneous Notes* Significant Event - Mei Mayorga RN - 02/05/2025 4:07 PM EDT Pt and at bedside educated on and provided with discharge instructions. Both state an understanding of the teaching and all questions answered at this time. documented in this [facility] Work Phone: 1(812) 626-805807-30-2025 Hospital Discharge instructions* Discharge Instructions* Sesar Aguirre MD - 02/05/2025 11:47 AM [...] make specific suggestions for your care. Call [phone] ([phone]) or [phone] (after-hours) any time day or night if you have any of the following: Bad smell coming out of your ear Severe swelling around your ear Any questions Pain in your ear Redness around your ear Severe dizziness * Attachments The following attachments cannot be sent through Care Everywhere. * General Anesthesia Discharge Instructions (Togolese) * Acute Pain Discharge Instructions, Adult (Togolese) * Surgical Wound Discharge Instructions (Togolese) documented in this [facility] Work Phone: 1([phone]) 691-914307-30-2025 History and physical note* Susanna Graf MD - 02/05/2025 11:03 AM EDT Images from the original note [...] a 11.3 pack-year smoking history. She hasnever been exposed to tobacco smoke. She has [...] ear drum repair. These risks include damage tothe ear bone, damage to the inner ear, hearing loss, dizziness, facial nerve injury, and taste disturbance. The patient opted to undergo this procedure and will be scheduled at their earliest convenience. Susanna Graf MD [facility] Work Phone: 1(180) 275-819807-30-2025 History and physical note* Susanna Graf MD - 02/05/2025 11:03 AM EDT Images from the original note [...] a 11.3 pack-year smoking history. She hasnever been exposed to tobacco smoke. She has [...] ear drum repair. These risks include damage tothe ear bone, damage to the inner ear, hearing loss, dizziness, facial nerve injury, and taste disturbance. The patient opted to undergo this procedure and will be scheduled at their earliest convenience. Susanna Graf MD documented in this encounterMiddletown Hospital Work Phone: 1(460) 731-427407-22-2025 Telephone encounter Note* Telephone Encounter - Jayden Connelly APRN.CNP - 01/28/2025 2:59 PM EDT Yes, just CBC. Jayden Guadalupe APRN.DRUG ABUSE WORKER [facility]07-22-2025 Miscellaneous Notes* Telephone Encounter - Jayden Connelly APRN.CNP - 01/28/2025 2:59 PM EDT Yes, just MCKENNA. Jayden Guadalupe APRN.CNP * Telephone Encounter - Desirae Pimentel RN - 01/28/2025 2:15 PM EDT Pt scheduled for lab/possible aranesp 01/31/25. Standing orders too soon to use. 02/15/25 appt labsplaced. Jayden: does pt just need a cbc order for 01/31? Desirae Pimentel RN documented in this encounterCleveland Clinic Avon Hospital07-22-2025 Telephone encounter Note * Telephone Encounter - Desirae Pimentel RN - 01/28/2025 2:15 PM EDT Pt scheduled for lab/possible aranesp 01/31/25. Standing orders too soon to use. 02/15/25 appt labsplaced. Jayden: does pt just need a cbc order for 01/31? Desirae Pimentel RN [facility]07-21-2025 Evaluation note* Diagnosis Onset Date Resolution Status Admit Date Anemia of renal disease acuteJuly 2024 1:48pmChronic ITP (idiopathic thrombocytopenia)acuteJuly 2024 1:48pmCKD (chronic kidney disease) stage 3, GFR 30-59 ml/minacuteJuly 2024 1:48pmComplex renal cystacuteJuly 2024 1:48pmHypertensive chronic kidney disease with stage 1 through stage 4 chronic kiacuteJuly 2024 1:48pmHyperuricemiaacuteJuly 2024 1:48pmLupusacuteJuly 2024 1:48pmOSA (obstructive sleep apnea)acuteJuly 2024 1:48pmVitamin D deficiencyacuteJuly 2024 1:48pmAAA (abdominal aortic aneurysm) without ruptureacuteSeptember 2024 9:58amChronic ITP (idiopathic thrombocytopenia) acuteSeptember 2024 9:58amCKD (chronic kidney disease) stage 3, GFR 30-59 ml/minacuteSeptember 2024 9:58amEssential hypertensionacuteSeptember 2024 9:58amObesity due to excess caloriesacuteSeptember 2024 9:58am [facility] Work Phone: 1(387) 909-270307-21-2025 Evaluation note* Diagnosis Onset Date Resolution Status Admit Date Anemia of renal disease acuteJuly 2024 1:48pmChronic ITP (idiopathic thrombocytopenia)acuteJuly 2024 1:48pmCKD (chronic kidney disease) stage 3, GFR 30-59 ml/minacuteJuly 2024 1:48pmComplex renal cystacuteJuly 2024 1:48pmHypertensive chronic kidney disease with stage 1 through stage 4 chronic kiacuteJuly 2024 1:48pmHyperuricemiaacuteJuly 2024 1:48pmLupusacuteJuly 2024 1:48pmOSA (obstructive sleep apnea)acuteJuly 2024 1:48pmVitamin D deficiencyacuteJuly 2024 1:48pmAAA (abdominal aortic aneurysm) without ruptureacuteSeptember 2024 9:58amChronic ITP (idiopathic thrombocytopenia) acuteSept2024 9:58amCKD (chronic kidney disease) stage 3, GFR 30-59 ml/minacuteSeptember 2024 9:58amEssential hypertensionacuteSeptember 2024 9:58amLeft ankle sprainacuteSeptember 2024 9:58amObesity due to excess caloriesacuteSeptember 2024 9:58amRight wrist sprainacuteSeptember 2024 9:58amAAA (abdominal aortic aneurysm) without ruptureacuteOctober 2024 10:28amAtherosclerosis of [place] coronary artery of [place]ick heartacute April 24, 2025 10:28amBreast cancer screening by mammogramacuteOctober 2024 10:28amChronic ITP (idiopathic thrombocytopenia)acuteOctober 2024 10:28amCKD (chronic kidney disease) stage 3, GFR 30-59 ml/minacuteOctober 2024 10:28amEssential hypertensionacuteOctober 2024 10:28amObesity due to excess caloriesacuteOctober 2024 10:28amOSA (obstructive sleep apnea)acute April 24, 2025 10:28am [facility] Work Phone: 1(718) 757-612707-09-2025 History of Present illness Narrative* Stephanie Dumont [...] disease) States medication was given too fast. Joahuxt-Cphzux-Cthsb Pertussis Rash REVIEW OF SYMPTOMS: Review of [...] of the risks of continued smoking: stroke, [place], all forms of cancer, lung disease, and [...] 3 views Chronic kidney disease, stage 3b ([facility]) - Primary Goal control blood pressures Check [...] of the risks of continued smoking: stroke, [place], all forms of cancer, lung disease, and [...] EDTAssociated Problem(s): Chronic kidney disease, stage 3b ([facility]) Goal control blood pressures Check labs semi annually as well as prn sxs changes Has aldactone on hold until sees Nephrolgoist documented in this encounterSelect Specialty HospitalJptikpflcd36-18-9642 History of Present illness Narrative* Stephanie Dumont NP - 01/06/2025 12:46 PM EDTAssociated Problem(s): DARYL (acute kidney injury) Values returning more to baseline Cont with nephrology * Stephanie Dumont NP - 01/06/2025 12:45 PM EDTAssociated Problem(s): Tobacco dependence The patient has been advised of the risks of continued smoking: stroke, [place], all forms of cancer, lung disease, and [...] weakness and fatigue. Bilateral swelling * Stephanie Dumont, JORDI - 01/06/2025 11:30 AM EDT Images from [...] disease) States medication was given too fast. Avpjjlw-Shtuqe-Skzqe Pertussis Rash REVIEW OF SYMPTOMS: Review of [...] of the risks of continued smoking: stroke, [place], all forms of cancer, lung disease, and [...] meds: hydrochlorothiazide, losartan, metoprolol, documented in this encounterSelect Specialty HospitalFxxcwciggx50-82-1985 Instructions* Patient Instructions* Stephanie Dumont NP - 01/06/2025 11:30 AM EDT Keep appt with Dr Hernandes Keep appt with Kidney dr Arriola documented in this encounterSelect Specialty HospitalVzuoaluuig16-20-0036 NoteOhio Valley Hospital06-27-2025 History of Present illness Narrative* Jayden Connelly APRN.DRUG ABUSE WORKER - 01/03/2025 2:16 PM EDT Images from the original note were not included. NAME: Abe Andrei [facility] NO.: [id number] DATE OF SERVICE: January 03, 2025 (Godwin) Some elements in this clinic note that are critical to medical decision making have been carefully reviewed and included from a prior clinic note dated: November 22, 2024 (Roxy) Additional Clinicians involved in Andrei [...] intake. She is scheduled to see her nut feeder in January and her primary care physician [...] a cough - will send rx for Tesgaillea Das. Her sense of taste is still [...] is going to follow up with her STRAP CUTTING MACHINE OPERATOR regarding pulmonary nodule that has been [...] having a mammogram and dexa scan at [facility] per her PCP. She states that [...] 08/29/2022 and then a follow-up with her nut feeder on 09/07/2022. Overall, she is doing well [...] as they are slightlyincreased. Got back from [place] and saw her sisters and had a [...] why she was going to see a nut feeder for her blood pressure. Patient also has [...] which included preparing to see the patient, avpu-uq-jwuf patient care, completing clinical documentation, performing a medically appropriate examination, counseling and educating the patient/family/caregiver, ordering medications, tests, or procedures, independently interpreting results (not separately reported), communicating results to the patient/family/caregiver, and care coordination (not separately reported). Jayden Connelly APRN.CNP Hematology and Oncology Services Provided at: [place], [place] CC: Dr. Atif Graf documented in this encounterCleveland Clinic Avon Hospital06-18-2025 History of Present illness Narrative* Stephanie Dumont NP - 12/25/2024 11:54 AM EDTAssociated Problem(s): Diarrhea Ongoing since 1 week, worsening in fatigue and weakness Orthostatics in office today: Lying 112/62, sitting 102/62, and standing 86/54 I do suspect dehydration is an issue, d/t these sxs and BP and age and medical conditions, I am going to have her go to [facility] ER for evaluation.she is agreeable to [...] done on Monday at [facility] for anemia- she goes back [...] done on Monday at the [facility] for anemia- she goes back [...] disease) States medication was given too fast. Qptpmpv-Vculya-Qhzqg Pertussis Rash REVIEW OF SYMPTOMS: Review of [...] of the risks of continued smoking: stroke, [place], all forms of cancer, lung disease, and [...] free T3, free Coronary artery disease involving ch[place] coronary artery of [place] heart Takes b clarke Pre-diabetes No current [...] going to have her go to [facility] ER for evaluation.she is agreeable to this and her can drive her there Chronic kidney disease, stage 3b ([facility]) - Primary Goal control blood pressures Check labs semi annually as well as prn sxs changes * Stephanie Dumont NP - 12/25/2024 6:07 AM EDTAssociated Problem(s): Thyroid nodule Biopsy resolved, bethesda-nondiagnostic, rare benign thyroid follicular cells * Stephanie Dumont NP - 12/25/2024 6:04 AM EDTAssociated Problem(s): Tobacco dependence The patient has been advised of the risks of continued smoking: stroke, [place], all forms of cancer, lung disease, and [...] EDTAssociated Problem(s): Chronic kidney disease, stage 3b ([facility]) Goal control blood pressures Check labs semi [...] AM EDTAssociated Problem(s): Coronary artery disease involving ch[place]oon[place]ick coronary artery of ch[place]ick heart Takes b clarke * Stephanie Dumont [...] that manages your ADALBERTO: documented in this [facility]06-18-2025 Instructions* Patient Instructions* Stephanie Dumont NP - 12/25/2024 11:00 AM EDT Proceed to ER for evaluation Also will provide an order for you for thyroid labs with next lab draw Fu in 3 weeks documented in this encounterSelect Specialty [id number] History of Present illness Narrative* Susanna Graf MD - 11/26/2024 3:00 PM EDT Images from the original note were not included. History Of Present Illness: Andrei Fish is a 73 y.o. 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 Augie Tyler at [facility]. She is now s/p left side tympanomastoidectomy [...] December [address] Augie Tyler at [facility]. She is now s/p left side tympanomastoidectomy [...] follow up ergocalciferol (Vitamin D-2) 1.25 MG (79490 UT) capsule 1 capsule, Weekly fostamatinib (TAVALISSE) [...] December [address] Augie Tyler at [facility]. She is now s/p left side tympanomastoidectomy [...] signing my name below, I, Emani Kapadia, Scribizzy attest that this documentation has been prepared under the direction and in the presence of Susanna Vasquez MD. I have reviewed the documentation as scribed by Marshal Kapadia and agree with the notes. Susanna Graf MD documented in this encounterM[facility] Work Phone: 1(757) 997-375005-16-2025 NoteOhio Valley Hospital05-16-2025 History of Present illness Narrative* Joanne Alvarez MA - 11/22/2024 2:36 PM EDT Patient Identification confirmed: yes. Injection given and documented on SEP per provider order. Joanne Alvarez MA documented in this encounterC[facility]05-16-2025 Instructions* Patient Instructions* Emani Brizuela - 11/22/2024 2:13 PM EDT B12 shot today and q 6 weeks In 2 weeks, start Aranesp q 2 weeks for anemia Labs q 2 weeks Continue Tavalisse 100mg BID RTC in 6 weeks - coordinate with B12 & Aranesp Labs same day documented in this encounterCleveland Clinic Avon Hospital05-16-2025 History of Present illness Narrative* Rinku Dupree MD - 11/22/2024 2:00 PM EDT Images from the original note were not included. NAME: Andrei Fish CLINIC NO.: [id number] DATE OF SERVICE: November 22, 2024 (Roxy) Some elements in this clinic [...] is stable. Updated Visit, April 18, 2024: Andrie returns for a follow up. Her anemia [...] is going to follow up with her STRAP CUTTING MACHINE OPERATOR regarding pulmonary nodule that has been [...] having a mammogram and dexa scan at [facility] per her PCP. She states that [...] 08/29/2022 and then a follow-up with her nut feeder on 09/07/2022. Overall, she is doing well [...] as they are slightlyincreased. Got back from [place] and saw her sisters and had a [...] why she was going to see a nut feeder for her blood pressure. Patient also has [...] which included preparing to see the patient, pybz-ba-ycmq patient care, completing clinical documentation, performing a medically appropriate examination, counseling and educating the patient/family/caregiver, ordering medications, tests, or procedures, independently interpreting results (not separately reported), communicating results to the patient/family/caregiver, and care coordination (not separately reported). Rinku Dupree MD, CPE Hematology and Oncology Services Provided at: [place], [place] Scribe Attestation: This note was scribed by Emani Brizuela on November 22, 2024 under the direction and supervision of Dr. Rinku Dupree. I attest that all of the information documented is correct to the best of my knowledge. Provider Attestation: I, Rinku Dupree MD, attest that all information documented by the above scribe is correct, and was supervised by me and under my direction. CC: Dr. Atif Graf documented in this encounterCleveland Clinic [facility]on Hospital05-16-2025 NoteOhio Valley Hospital04-30-2025 NoteOhio Valley Hospital04-30-2025 History of Present illness Narrative* Katheryn [...] as appropriate. KI Gar documented in this encounterCleveland Clinic Avon Hospital04-04-2025 History of Present illness Narrative* Li Pitts APRN.STEPH - 10/11/2024 10:30 AM EDT Images from the original note were not included. NAME: Andrei Fish CLINIC NO.: [id number] DATE OF SERVICE: October 11, 2024 (Hong) [...] is going to follow up with her STRAP CUTTING MACHINE OPERATOR regarding pulmonary nodule that has been [...] having a mammogram and dexa scan at [facility] per her PCP. She states that [...] 08/29/2022 and then a follow-up with her nut feeder on 09/07/2022. Overall, she is doing well [...] as they are slightlyincreased. Got back from [place] and saw her sisters and had a [...] why she was going to see a nut feeder for her blood pressure. Patient also has [...] No No family history on file. Li Pitts APRN, STRAP CUTTING MACHINE OPERATOR-C, OCN Hematology and Oncology Services Provided at: [place], [place] CC: Dr. Atif Graf documented in this encounterCleveland Clinic Avon Hospital04-04-2025 NoteOhio Valley Hospital02-21-2025 NoteOhio Valley Hospital02-21-2025 History of Present illness Narrative* Joanne Alvarez MA - 08/30/2024 11:24 AM EST Patient Identification confirmed: yes. Injection given and documented on SEP per provider order. Joanne Alvarez MA documented in this encounterCleveland Clinic Avon Hospital02-21-2025 History of Present illness Narrative* Li Pitts APRN.CNP - 08/30/2024 11:00 AM EST NAME: Andrei Fish CLINIC NO.: [id number] DATE OF SERVICE: August 30, 2024 (Hong) [...] is going to follow up with her STRAP CUTTING MACHINE OPERATOR regarding pulmonary nodule that has been [...] having a mammogram and dexa scan at [facility] per her PCP. She states that [...] 08/29/2022 and then a follow-up with her nut feeder on 09/07/2022. Overall, she is doing well [...] as they are slightlyincreased. Got back from [place] and saw her sisters and had a [...] why she was going to see a nut feeder for her blood pressure. Patient also has [...] History reviewed. No pertinent family history. Li Pitts APRN, NP-C, OCN Hematology and Oncology Services Provided at: [place], [place] CC: Dr. Atif Graf documented in this encounterCleveland Clinic Avon Hospital02-21-2025 NoteOhio Valley Hospital02-06-2025 History of Present illness Narrative* Stephanie [...] disease) States medication was given too fast. Bbkzxfn-Xbgwym-Lmwrw Pertussis Rash REVIEW OF SYMPTOMS: Review of [...] of the risks of continued smoking: stroke, [place], all forms of cancer, lung disease, and [...] No current treatment Coronary artery disease involving [place] coronary artery of [place]ick heart (CMS/HCC) Takes b clarke PAH (pulmonary [...] of the risks of continued smoking: stroke, [place], all forms of cancer, lung disease, and [...] Problem(s): Chronic kidney disease, stage 3a (HCC) ([facility]) Continue with Nephrology dr arriola Keep BP at goal * Stephanie Dumont NP - 08/15/2024 6:47 AM ESTAssociated Problem(s): PAH (pulmonary artery hypertension) ([facility]) Per ECHO Elevated pressures, has hx of ADALBERTO, not treated * Stephanie Dumont NP - 08/15/2024 6:47 AM ESTAssociated Problem(s): Essential hypertension ([facility]) Please check blood pressure daily and record DASH diet Limit caffeine Take medication as directed Contact office if chest pain, pressure, dizziness, shortness of breath, swelling legs Recommend slow position changes Current meds: hydrochlorothiazide, losartan, metoprolol, aldactone * Stephanie Dumont NP - 08/15/2024 6:46 AM ESTAssociated Problem(s): Coronary artery disease involving [place] coronary artery of [place] heart ([facility]) Takes b clarke * Stephanie Dumont NP - 08/15/2024 6:45 AM ESTAssociated Problem(s): Obstructive sleep apnea syndrome .L documented in this [facility]02-06-2025 Instructions* Patient Instructions* Stephanie Dumont NP - 08/15/2024 10:30 AM EST I [address] place a referral to [facility] in [place] For cancer gene testing, they should call you for this CT chest: due 12/01, we will call you documented in this encounterSelect Specialty HospitalOxuwojeayh29-25-1531 Telephone encounter Note* Telephone Encounter - Krista Harden RPh - 07/31/2024 11:[address] [facility] notified of appeal being approved 07/31/24. They will reach out to [facility] to complete enrollment application. I let Odalicia a voice mail making her aware of this outreach call from Herminio. Emiliano Harden PharmD, BCOP [facility] Work Phone: [phone] 587-513101-22-2025 Miscellaneous Notes* Telephone Encounter - Krista Harden RPh - 07/31/2024 11:[address] [facility] notified of appeal being approved 07/31/24. They will reach out to [facility] to complete enrollment application. I let Odalicia a voice mail making her aware of this outreach call from Herminio. Emiliano Harden PharmD, BCOP * Telephone Encounter - Krista Harden RPh - 07/29/2024 10:25 AM EST Approved on Appeal! [facility] as [facility] are closed for observance. [...] Drug: Tavalisse Cover My Meds Da Silva: [id number] Determination: Denied PA Denied because: Formulary Tavalisse [...] not appropriate for you Prior Authorization/Case #: [id number] Prior Authorization Expiration: Time to PA Submission in CMM: 15 min Time to PA Determination in CMM: 2 days Additional Information: Additional information faxed over 07/23/24 at insurer's request For questions relating to this submission, please contact [facility] at [phone] * Telephone Encounter - Krista Harden RPh [...] Emiliano Harden PharmD, BCOP documented in this encounterCleveland Clinic Avon Hospital01-20-2025 Telephone encounter Note * Telephone Encounter [...] phone. Thank you. Emiliano Harden PharmD, BCOP [facility]01-15-2025 Telephone encounter Note* Telephone Encounter - Krista Harden RPh - 07/24/2024 11:[address] Landin please see below rationale as to why Andrei' insurance has denied her Tavalisse at his time (despite her being stable on therapy since 2020) I can appeal, but will need your assistance in that matter. Thank you Emiliano Harden, PharmD, BCOP [facility]01-14-2025 Telephone encounter Note* Telephone Encounter - Krista Harden RPh - 07/23/2024 1:02 PM EST Ambulatory Pharmacy Prior Authorization Note Provider Intervention Required?: No- Pharmacy completed on your behalf. Rx Plan: [facility]: Tavalisse Cover My Meds Da Silva: [id number] Determination: Denied PA Denied because: Formulary Tavalisse [...] not appropriate for you Prior Authorization/Case #: [id number] Prior Authorization Expiration: Time to PA Submission in CMM: 15 min Time to PA Determination in CMM: 2 days Additional Information: Additional information faxed over 07/23/24 at insurer's request For questions relating to this submission, please contact [facility] at [phone] [facility]01-14-2025 Telephone encounter Note* Telephone Encounter - [...] the payment plan. Emiliano Harden, PharmD, BCOP [facility]01-02-2025 NoteOhio Valley Hospital01-02-2025 History of Present illness Narrative* Monica Dowling MA - 07/11/2024 11:28 AM EST Patient Identification confirmed: yes. Injection given and documented on SEP per provider order. Monica Dowling MA documented in this encounterCleveland Clinic Avon Hospital01-02-2025 Instructions* Patient Instructions* Emani Brizuela - 07/11/2024 11:13 AM EST B12 shot today and q 6 weeks Continue Tavalisse 100 mg BID RTC in 6 weeks Labs same day documented in this encounterCleveland Clinic Avon Hospital01-02-2025 History of Present illness Narrative* Li Pitts APRN.CNP - 07/11/2024 11:00 AM EST Images from the original note were not included. NAME: Andrei Fish CLINIC NO.: [id number] DATE OF SERVICE: July 11, 2024 (Hong) Some elements in this clinic note that are critical to medical decision making have been carefully reviewed and included from a prior clinic note dated: May 30, 2024 (Roxy) Additional Clinicians involved in Paulalicia Fish's [...] is going to follow up with her STRAP CUTTING MACHINE OPERATOR regarding pulmonary nodule that has been stable on our sin2019, thyroid nodule, and echocardiogram for possible valvular [...] having a mammogram and dexa scan at [facility] per her PCP. She states that [...] 08/29/2022 and then a follow-up with her nut feeder on 09/07/2022. Overall, she is doing well [...] as they are slightlyincreased. Got back from [place] and saw her sisters and had a [...] why she was going to see a nut feeder for her blood pressure. Patient also has [...] No No family history on file. Li Pitts APRN, STRAP CUTTING MACHINE OPERATOR-C, OCN Hematology and Oncology Services Provided at: [facility], [place], [place] Scribe Attestation: This note was scribed by Emani Brizuela on July 11, 2024 under the direction and supervision of Li Pitts. I attest that all of the information documented is correct to the best of my knowledge. Provider Attestation: I, Li Pitts, attest that all information documented by the above scribe is correct, and was supervised by me and under my direction. CC: Dr. Atif Graf * Monica Dowling MA - 07/11/2024 10:58 AM EST Patient states that she has a cough it was better for awhile but has began again. Monica Dowling MA documented in this encounterCleveland Clinic [facility]on Hospital01-02-2025 NoteOhio Valley Hospital01-02-2025 NoteOhio Valley Hospital11-22-2024 NoteOrthopedic Surgery Subjective Follow-up and Pain [...] B12, and Folate levels obtained at the [facility] on 05/30/2024 were normal except: Hemoglobin [...] documentation. There may be additional comments below. [facility]11-21-2024 Nurse Note* Monica Dowling MA - 05/30/2024 11:37 AM EST Patient Identification confirmed: yes. Injection given and documented on MAR per provider order. Monica Dowling MA [facility]11-21-2024 Nurse Note* Monica Dowling MA - 05/30/2024 11:37 AM EST Patient Identification confirmed: yes. Injection given and documented on MAR per provider order. Monica Dowling MA documented in this encounterCleveland Clinic Avon Hospital11-21-2024 Instructions* Patient Instructions* Rinku Dupree MD - 05/30/2024 11:01 AM EST B12 shot today and q 6 weeks Continue Tavalisse 100 mg BID RTC in 6 weeks Labs same day documented in this encounterCleveland Clinic Avon Hospital11-21-2024 History of Present illness Narrative* Rinku Dupree MD - 05/30/2024 10:40 AM EST Images from the original note were not included. NAME: Abe Paulaliica [facility] NO.: [id number] DATE OF SERVICE: May 30, 2024 (Roxy) Some elements in this clinic note that are critical to medical decision making have been carefully reviewed and included from a prior clinic note dated: April 18, 2024 (Roxy) Additional Clinicians involved in Andrei [...] is going to follow up with her STRAP CUTTING MACHINE OPERATOR regarding pulmonary nodule that has been [...] having a mammogram and dexa scan at [facility] per her PCP. She states that [...] 08/29/2022 and then a follow-up with her nut feeder on 09/07/2022. Overall, she is doing well [...] as they are slightlyincreased. Got back from [place] and saw her sisters and had a [...] well. Updated Visit, December 17, 2021: Andrei Fsih returns for scheduled follow-up. She remains on [...] why she was going to see a nut feeder for her blood pressure. Patient also has [...] which included preparing to see the patient, fhgm-rk-cted patient care, completing clinical documentation, obtaining and/or reviewing separately obtained history, performing a medically appropriate examination, counseling and educating the patient/family/caregiver, ordering medications, tests, or procedures, communicating with other HCPs (not separately reported), independently interpreting results (not separately reported), communicating results to the patient/family/caregiver, and care coordination (not separately reported). Rinku Dupree MD, CPE Hematology and Oncology Services Provided at: [place], [place] Scribe Attestation: This note was scribed by Emani Brizuela on May 30, 2024 under the direction and supervisionof Dr. Rinku Dupree. I attest that all of the information documented is correct to the best of my knowledge. Provider Attestation: I, Rinku Dupree MD, attest that all information documented by the above scribe is correct, and was supervised by me and under my direction. CC: Dr. Atif Graf documented in this encounterCleveland Clinic Avon Hospital11-21-2024 NoteOhio Valley Hospital11-14-2024 Telephone encounter Note* Telephone Encounter - Stephanie Dumont NP - 05/23/2024 7:38 AM EST Please contact pt, I reviewed her notes from Dr Mayo, I see she is going to see him back in a fewmonths, he also recommended she see an logistics tech d/t one of her thyroid labs trending toward an over active state. It is time to recheck those thyroid labs and if they are still off then I willsend her to see endo No fasting is needed for labs, have her get these done in the next week please [place] [facility] Specialty [id number] Miscellaneous Notes* Telephone Encounter - Stephanie Dumont NP - 05/23/2024 7:38 AM EST Please contact pt, I reviewed her notes from Dr Mayo, I see she is going to see him back in a fewmonths, he also recommended she see an logistics tech d/t one of her thyroid labs trending toward an over active state. It is time to recheck those thyroid labs and if they are still off then I willsend her to see endo No fasting is needed for labs, have her get these done in the next week please [place] documented in this encounterSelect Specialty [id number] NoteHX LT TIB/FIB FX WITH EXTERNAL FIX; [...] scan films to appointment with Dr Segura [facility]11-06-2024 History of Present illness Narrative* Mar Mayo MD - 05/15/2024 2:20 PM EST Subjective Patient ID: Andrei Fish is a 73 y.o. female who presents for Thyroid Nodule (FNA 04/16/24 TB) Pt had a thyroid US after found to have a low TSH. US showed a 13mm and 20mm RT TR4 nodule and a 21mm LT TR3 nodule. Path sowed a Casper 2 nodule. No radiation exposure. No family [...] Obstructive sleep apnea syndrome 05/13/2021 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[facility]/HCC) 06/28/2022 Tobacco dependence 06/28/2022 Dry mouth 01/05/2017 Compression syndrome, nerve 06/28/2022 Abnormal weight loss 03/03/2016 Age-related osteoporosis without current pathological fracture (CMS/HCC) 06/06/2023 Ruptured ear drum, left 06/06/2023 Leg pain, bilateral 06/06/2023 Left wrist pain 06/06/2023 Obesity (BMI 30-39.9) 06/06/2023 Claudication of both lower extremities (CMS/HCC) 06/08/2023 PAD (peripheral artery disease) (CMS/[facility]) 06/08/2023 Hyperkalemia with normal acid-base balance 11/27/2023 Cholesteatoma of left ear 11/14/2023 HL (hearing loss) 06/28/2022 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 Perforation of left tympanic membrane 06/29/2022 Other forms of systemic lupus erythematosus (CMS/HCC) 11/28/2023 Other fatigue 11/28/2023 Weakness of both legs 11/28/2023 Systemic lupus erythematosus, unspecified (CMS/HCC) 02/12/2024 Lumbar back pain 02/12/2024 Thyroid nodule (CMS/HCC) 02/26/2024 Coronary artery disease involving [place] coronary artery of [place] heart (CMS/HCC) 02/26/2024 Calcification of aortic valve 02/26/2024 PAH (pulmonary artery hypertension) (CMS/[facility]) 03/27/2024 Megaloblastic anemia due to [...] disease) States medication was given too fast. Ccqpyfz-Vlwrtp-Xhpsj Pertussis Rash Current Outpatient Medications on File [...] surgery eventually be needed documented in this encounterSelect Specialty [id number] History of Present illness Narrative* Stephanie Dumont, JORDI - 05/14/2024 11:57 AM ESTAssociated Problem(s): Essential hypertension (CMS/HCC) No dose changes in meds * FREDDY HAMILTON - 05/14/2024 10:30 AM EST Pt seen dr curran yesterday- she is going to be seen in [place] for her left knee elimination? * Stephanie [...] Jess Sorto and Prema Royal (both ENT), [facility], [facility]/Living Will: No Concerns: seeing ortho in [place] SUBJECTIVE: MEDICATIONS: Current Outpatient Medications Medication Instructions [...] disease) States medication was given too fast. Imkhvrf-Qdmorj-Vwvei Pertussis Rash REVIEW OF SYMPTOMS: Review of [...] of the risks of continued smoking: stroke, [place], all forms of cancer, lung disease, and [...] Obesity (BMI 30-39.9) Coronary artery disease involving [place] coronary artery of [place] heart (CMS/HCC) Stress test was negative Pre-diabetes [...] AM ESTAssociated Problem(s): Coronary artery disease involving [place] coronary artery of [place] heart ([facility]) Stress test was negative * [...] of the risks of continued smoking: stroke, [place], all forms of cancer, lung disease, and [...] on a yearly basis documented in this encounterSelect Specialty [id number] History of Present illness Narrative* Herson Ike [...] disease) States medication was given too fast. Nfihscq-Znhggp-Cmcrg Pertussis Rash HOME MEDICATIONS: Current Outpatient Medications [...] basis. Herson Avalos D.O. documented in this [facility]10-17-2024 Telephone encounter Note* Telephone Encounter - Stephanie Dumont NP - 04/25/2024 8:16 AM EDT Let the patient know that I did go ahead and do a referral to Dr Mayo for her thyroid biopsy so that we can see what his opinion is on what to do next [place] [facility] Specialty [id number] Miscellaneous Notes* Telephone Encounter - Stephanie Dumont NP - 04/25/2024 8:16 AM EDT Let the patient know that I did go ahead and do a referral to Dr Mayo for her thyroid biopsy so that we can see what his opinion is on what to do next [place] documented in this [facility]10-16-2024 History of Present illness Narrative* Stephanie [...] AM EDTAssociated Problem(s): Coronary artery disease involving [place] coronary artery of [place] heart (CMS/HCC) No acute chest pain See [...] disease) States medication was given too fast. Wfwcsgw-Mzcbxk-Wmtpz Pertussis Rash REVIEW OF SYMPTOMS: Review of [...] History: Diagnosis Date Disease of thyroid gland ([facility]/HCC) 06/28/2022 Hypertension (CMS/HCC) Leg pain, bilateral 06/06/2023 [...] thyroid follicular cells Coronary artery disease involving [place] coronary artery of [place] heart (CMS/HCC) No acute chest pain See [...] Fu as per Hem/onc documented in this encounterSelect Specialty [id number] Nurse Note* Joanne Alvarez MA - 04/18/2024 11:57 AM EDT Patient Identification confirmed: yes. Injection given and documented on MAR per provider order. Joanne Alvarez MA [facility]10-10-2024 Nurse Note* Joanne Alvarez MA - 04/18/2024 11:57 AM EDT Patient Identification confirmed: yes. Injection given and documented on MAR per provider order. Joanne Alvarez MA documented in this encounterCleveland Clinic [facility]on Hospital10-10-2024 Instructions* Patient Instructions* Emani Brizuela - 04/18/2024 11:40 AM EDT B12 shot today and q 6 weeks Continue Tavalisse 100 mg BID RTC in 6 weeks Labs same day documented in this encounterCleveland Clinic Avon Hospital10-10-2024 History of Present illness Narrative* Rinku Dupree MD - 04/18/2024 11:15 AM EDT NAME: Andrei Fish [facility] NO.: [id number] DATE OF SERVICE: April 18, 2024 [facility] Some elements in this clinic note that are critical to medical decision making have been carefully reviewed and included from a prior clinic note dated: March 05, 2024 (Roxy) Additional Clinicians involved in Andrei [...] is going to follow up with her STRAP CUTTING MACHINE OPERATOR regarding pulmonary nodule that has been [...] having a mammogram and dexa scan at [facility] per her PCP. She states that [...] 08/29/2022 and then a follow-up with her nut feeder on 09/07/2022. Overall, she is doing well [...] as they are slightlyincreased. Got back from [place] and saw her sisters and had a [...] why she was going to see a nut feeder for her blood pressure. Patient also has [...] which included preparing to see the patient, npsj-wi-ybmr patient care, completing clinical documentation, obtaining and/or reviewing separately obtained history, performing a medically appropriate examination, counseling and educating the patient/family/caregiver, ordering medications, tests, or procedures, communicating with other HCPs (not separately reported), independently interpreting results (not separately reported), communicating results to the patient/family/caregiver, and care coordination (not separately reported). Rinku Dupree MD, CPE Hematology and Oncology Services Provided at: [place], [place] Scribe Attestation: This note was scribed by Emani Brizuela on April 18, 2024 under the direction and supervision of Dr. Rinku Dupree. I attest that all of the information documented is correct to the best of myknowledge. Provider Attestation: I, Rinku Dupree MD, attest that all information documented by the above scribe is correct, and was supervised by me and under my direction. CC: Dr. Atif Graf documented in this encounterC[facility] Telephone encounter Note * Telephone Encounter - FREDDY HAMILTON - 04/10/2024 6:13 PM EDT pt called about her metoprolol being on hold at her pharmacy, she just took her last (1/2 pill) today. pt was asking if she is suppose to hold off on this medication? [facility] [id number] Miscellaneous Notes* Telephone Encounter - FREDDY HAMILTON - 04/10/2024 6:13 PM EDT pt called about her metoprolol being on hold at her pharmacy, she just took her last (1/2 pill) today. pt was asking if she is suppose to hold off on this medication? documented in this encounterSelect Specialty HospitalRntkehagsf21-30-7698 Telephone encounter Note* Telephone Encounter - Rinku Dupree MD - 04/09/2024 3:22 PM EDT No further instructions - you are right on. [facility]10-[facility] Miscellaneous Notes* Telephone Encounter - Rinku Dupree MD - 04/09/2024 3:22 PM EDT No further instructions - you are right on. * Telephone Encounter - Desirae Pimentel RN - 04/09/2024 9:10 AM EDT Pt STRAP CUTTING MACHINE OPERATOR Stephanie called to inquire if there are any special instructions/ recommendations for schedule thyroid fine needle bx at [facility]. 03/05/24 platelet result 144. Encouraged to ask [...] recommendations? Desirae Pimentel RN documented in this encounterCleveland [facility]10-01-2024 History of Present illness Narrative* LISA [...] disease) States medication was given too fast. Mvdckqf-Frniyc-Qyocs Pertussis Rash HOME MEDICATIONS: Current Outpatient Medications [...] Normal TIMA on 03/01/24 for vascular flow Neelima Pt notes occ posterior knee pain. Not [...] for requiring urgent evaluation. 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 03/05/24 platelet result 144. Encouraged to ask radiology dept if they have any requirements for platelet number. Also recommend recheck CBC prior to verify no drastic changes, and standard bleeding precautions following, should platelets remain at a stable number. She will call with any further needs or concerns once she discusses with radiology team. Loulou: Any further recommendations? Desirae Pimentel RN [facility]09-27-[facility] Telephone encounter Note* Telephone Encounter - Desirae Pimentel RN - 04/05/2024 3:49 PM EDT Printed and signed by Loulou. Faxed to [phone], as requested. Desirae Pimentel RN [facility]09-27-2024 Miscellaneous Notes* Telephone Encounter - Desirae Pimentel RN - 04/05/2024 3:49 PM EDT Printed and signed by Loulou. Faxed to [phone], as requested. Desirae Pimentel, RN * Telephone Encounter - Krista Harden RPh - 04/02/2024 2:42 PM EDT Please send this to Dr Dupree 04/03/24. This is set to print. Kriss StallingsD, BCOP documented in this encounterCleveland Clinic [facility] Hospital09-26-2024 History of Present illness Narrative* Stephanie [...] AM EDTAssociated Problem(s): Coronary artery disease involving chuloonawick coronary artery of chuloonawick heart (CMS/HCC) Reviewed ECHO Will order stress test * Stephanie Dumont NP - 04/04/2024 10:32 AM EDTAssociated Problem(s): Essential hypertension (CMS/HCC) Stable, no med dose chagnes * FREDDY HAMILTON - 04/04/2024 9:40 AM EDT [facility] [phone] Cardiology- Dr west Pt had a pos [...] disease) States medication was given too fast. Esodxfg-Ihancr-Llguw Pertussis Rash REVIEW OF SYMPTOMS: Review of [...] History: Diagnosis Date Disease of thyroid gland ([facility]) 06/28/2022 Hypertension (CMS/HCC) Leg pain, bilateral 06/06/2023 [...] Obesity (BMI 30-39.9) Coronary artery disease involving chul[place] coronary artery of chuloonawick heart (CMS/HCC) Reviewed ECHO Will order stress [...] referral to Orthopaedic Surgery documented in this encounterSelect Specialty [id number] Telephone encounter Note* Telephone Encounter - Krista Harden RPh - 04/02/2024 2:42 PM EDT Please send this to Dr Dupree 04/03/24. This is set to print. Emiliano Harden, PharmD, BCOP [facility] Work Phone: 1(665) 966-855809-18-2024 History of Present illness Narrative* Stephanie Dumont NP - 03/27/2024 1:10 PM EDTAssociated Problem(s): Obstructive sleep apnea syndrome Tested in the past, never treated * Stephanie Dumont NP - 03/27/2024 1:08 PM EDTAssociated Problem(s): PAH (pulmonary artery hypertension) ([facility]) Per ECHO Elevated pressures, has hx of ADALBERTO, not treated documented in this encounterSelect Specialty [id number] Nurse Note* Joanne Alvarez MA - 03/05/2024 11:40 AM EDT Patient Identification confirmed: yes. Injection given and documented on MAR per provider order. Joanne Alvarez MA [facility]08-27-[facility] Nurse Note* Joanne Alvarez MA - 03/05/2024 11:40 AM EDT Patient Identification confirmed: yes. Injection given and documented on MAR per provider order. Joanne Alvarez MA documented in this encounterCleveland Clinic [facility]08-27-2024 Instructions* Patient Instructions* Emani Brizuela - 03/05/2024 11:20 AM EDT B12 shot today and q 6 weeks Continue Tavalisse 100 mg BID RTC in 6 weeks Labs same day documented in this encounterCleveland Clinic [facility] Hospital08-27-2024 History of Present illness Narrative* Rinku Dupree MD - 03/05/2024 10:30 AM EDT Images from the original note were not included. NAME: FishAndrei dean NO.: [id number] DATE OF SERVICE: March 05, 2024 (Roxy) Some elements in this clinic note that are critical to medical decision making have been carefully reviewed and included from a prior clinic note dated: February 02, 2024 (Roxy) Additional Clinicians involved in Paulalicia Ruben Abe's care: Dr. HalDr. Susanna morfin DIAGNOSIS: Chronic ITP ASSESSMENT: 1. Thrombocytopenia (HCC) [...] is going to follow up with her STRAP CUTTING MACHINE OPERATOR regarding pulmonary nodule that has been [...] having a mammogram and dexa scan at [facility] per her PCP. She states that [...] 08/29/2022 and then a follow-up with her nut feeder on 09/07/2022. Overall, she is doing well [...] as they are slightlyincreased. Got back from [place] and saw her sisters and had a [...] well. Updated Visit, December 17, 2021: Andrei Fsih returns for scheduled follow-up. She remains on [...] why she was going to see a nut feeder for her blood pressure. Patient also has [...] which included preparing to see the patient, mwdp-fj-pglf patient care, completing clinical documentation, obtaining and/or reviewing separately obtained history, performing a medically appropriate examination, counseling and educating the patient/family/caregiver, ordering medications, tests, or procedures, communicating with other HCPs (not separately reported), independently interpreting results (not separately reported), communicating results to the patient/family/caregiver, and care coordination (not separately reported). Rinku Dupree MD, CPE Hematology and Oncology Services Provided at: [place], [place] Scribe Attestation: This note was scribed by Emani Brizuela on March 05, 2024 under the direction and supervision of Dr. Rinku Dupree. I attest that all of the information documented is correct to the best of my knowledge. Provider Attestation: I, Rinku Dupree MD, attest that all information documented by the above scribe is correct, and was supervised by me and under my direction. CC: Dr. Atif Graf documented in this encounterCleveland Clinic [facility]08-26-2024 History of Present illness Narrative* Stephanie Dumont NP - 03/04/2024 12:46 PM EDTAssociated Problem(s): Thyroid nodule (CMS/HCC) Thyroid US * Stephanie Dumont NP - 03/04/2024 12:46 PM EDTAssociated Problem(s): Essential hypertension (CMS/HCC) stable * Stephanie Dumont NP - 03/04/2024 12:46 PM EDTAssociated Problem(s): Coronary artery disease involving ch[place] coronary artery of chuloonawick heart (CMS/HCC) Strong family hx of CAD Vague c.o pressure chest from time to time Will order ECHO Add Toprol XL 12.5mg daily Await her to let me know which sticker operator referral * Stephanie Dumont NP - 03/04/2024 [...] who does cardiology through [facility] closer to [place] will call me tomorrow Thyroid nodule: incidental [...] disease) States medication was given too fast. Qdymqba-Excqqt-Mjixw Pertussis Rash REVIEW OF SYMPTOMS: Review of [...] History: Diagnosis Date Disease of thyroid gland ([facility]) 06/28/2022 Hypertension (CMS/HCC) Leg pain, bilateral 06/06/2023 [...] (CMS/HCC) Thyroid US Coronary artery disease involving ch[place] coronary artery of chuloonawick heart (CMS/HCC) - Primary Strong family hx of CAD Vague c.o pressure chest from time to time Will order ECHO Add Toprol XL 12.5mg daily Await her to let me know which sticker operator referral Relevant Medications metoprolol succinate XL (Toprol-XL) 25 MG 24 hr tablet Calcification of aortic valve Per CT chest, will get ECHO documented in this encounterSelect Specialty HospitalIncqrxogkt56-11-0941 Instructions* Patient Instructions* Emani Carr - 02/02/2024 1:48 PM EDT Continue Tavalisse 100 mg BID RTC in 6 weeks for labs and follow up documented in this encounterCleveland Clinic [facility]07-26-2024 History of Present illness Narrative* Rinku Dupree MD - 02/02/2024 1:30 PM EDT Images from the original note were not included. NAME: Andrei Fish [facility] NO.: [id number] DATE OF SERVICE: February 02, 2024 (Roxy) Some elements in this clinic note that are critical to medical decision making have been carefully reviewed and included from a prior clinic note dated: November 24, 2023 (Roxy) Additional Clinicians involved in Paulalicia Ruben Abe's [...] having a mammogram and dexa scan at [facility] per her PCP. She states that [...] 08/29/2022 and then a follow-up with her nut feeder on 09/07/2022. Overall, she is doing well [...] as they are slightlyincreased. Got back from [place] and saw her sisters and had a [...] why she was going to see a nut feeder for her blood pressure. Patient also has [...] which included preparing to see the patient, kpcq-gr-zmxn patient care, completing clinical documentation, obtaining and/or reviewing separately obtained history, performing a medically appropriate examination, counseling and educating the patient/family/caregiver, ordering medications, tests, or procedures, communicating with other HCPs (not separately reported), independently interpreting results (not separately reported), communicating results to the patient/family/caregiver, and care coordination (not separately reported). Rinku Dupree MD, CPE Hematology and Oncology Services Provided at: [place], [place] Scribe Attestation: This note was scribed by Emani Carr on February 02, 2024 under the direction and supervision of Dr. Rinku Dupree. I attest that all of the information documented is correct to the best of my knowledge. Provider Attestation: I, Rinku Dupree MD, attest that all information documented by the above scribe is correct, and was supervised by me and under my direction. CC: Dr. Atif Graf documented in this encounterCleveland Clinic [facility]07-18-2024 Telephone encounter Note * Telephone Encounter - Desirae Pimentel RN - 01/25/2024 10:29 AM EDT Loulou: please sign pended refill, if agreeable Desirae Pimentel RN [facility]07-18-2024 Miscellaneous Notes* Telephone Encounter - Desirae Pimentel RN - 01/25/2024 10:29 AM EDT Loulou: please sign pended refill, if agreeable Desirae Pimentel RN documented in this encounterCleveland Clinic [facility] Hospital06-25-2024 History of Present illness Narrative* Emani Gutiérrez MD - 01/02/2024 1:15 PM EDT History Of Present Illness: Andrei Fish is a 73 y.o. 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 Augie Tyler at [facility]. She was told in 2016 that she [...] times daily ergocalciferol (Vitamin D-2) 1.25 MG (76516 UT) capsule 1 capsule, oral, Weekly fostamatinib [...] December [address] Augie Tyler at [facility]. She was told in 2016 that she [...] Spring 2024 or later). documented in this encounterUnL[facility] Work Phone: 1(943) 590-122306-10-2024 Miscellaneous Notes* Perioperative Nursing Note - Bernardino Mayen RN - 12/18/2023 12:47 PM EDT 1247: Phase 1 care begins 1313: Pt family updated via message 1405: 975 tylenol given per emr order 1420: Phase 2 care begins documented in this encounterUnLakeHealth [facility] Work Phone: 1(208) 218-508506-10-2024 Note* Perioperative Nursing Note - Bernardino Mayen RN - 12/18/2023 12:47 PM EDT 1247: Phase 1 care begins 1313: Pt family updated via message 1405: 975 tylenol given per emr order 1420: Phase 2 care begins [facility]06-10-2024 Hospital Discharge instructions* Discharge Instructions* Fly Lindo [...] suggestions for your care. documented in this [facility] Work Phone: 1(917) 439-828206-10-2024 History and physical note* Fly Lindo MD [...] cartilage graft, possible OCR Fly Lindo MD [facility] Work Phone: 1(144) 659-196506-10-2024 History and physical note* Fly Lindo MD [...] OCR Fly Lindo MD [facility] in [facility] Work Phone: 1(238) 276-782406-07-2024 Nurse Note* Joanne Alvarez MA - 12/15/2023 11:40 AM EDT Patient identified by 2 identifiers. EKG performed as ordered. Joanne Alvarez MA [facility]06-07-[facility] Nurse Note* Joanne Alvarez MA - 12/15/2023 11:40 AM EDT Patient identified by 2 identifiers. EKG performed as ordered. Joanne Alvarez MA documented in this encounterCleveland Clinic [facility]05-21-2024 Telephone encounter Note * Telephone Encounter - Rinku Dupree MD - 11/28/2023 2:35 PM EDT Called thanks [facility]05-21-2024 Miscellaneous Notes* Telephone Encounter - Rinku Dupree MD - 11/28/2023 2:35 PM EDT Called thanks * Telephone Encounter - Emilia Robins RN - 11/28/2023 11:[address] Graf ( ENT) is requesting to speak w/ you regarding Odes. Please call her @ [phone]. Anayeli, Emilia Robins RN documented in this encounterCleveland Clinic [facility]05-21-2024 Telephone encounter Note * Telephone Encounter - Emilia Robins RN - 11/28/2023 11:[address] Graf ( ENT) is requesting to speak w/ you regarding Odes. Please call her @ [phone]. Emilia Guadalupe RN [facility] Work Phone: 1(694) 529-5504316096-11-8019 Instructions* Patient Instructions* Rinku Dupree MD - 11/24/2023 11:28 AM EDT Continue Tavalisse 100 mg BID Return in 6 weeks for labs and follow up documented in this encounterCleveland Clinic [facility] Hospital05-17-2024 History of Present illness Narrative* Rinku Dupree MD - 11/24/2023 10:45 AM EDT Images from the original note were not included. NAME: Abe [facility] NO.: [id number] DATE OF SERVICE: November 24, 2023 (Roxy) [...] having a mammogram and dexa scan at [facility] per her PCP. She states that [...] 08/29/2022 and then a follow-up with her nut feeder on 09/07/2022. Overall, she is doing well [...] as they are slightlyincreased. Got back from [place] and saw her sisters and had a [...] why she was going to see a nut feeder for her blood pressure. Patient also has [...] which included preparing to see the patient, bcep-qr-gexp patient care, completing clinical documentation, obtaining and/or reviewing separately obtained history, performing a medically appropriate examination, counseling and educating the patient/family/caregiver, ordering medications, tests, or procedures, communicating with other HCPs (not separately reported), independently interpreting results (not separately reported), communicating results to the patient/family/caregiver, and care coordination (not separately reported). Rinku Dupree MD, CPE Hematology and Oncology Services Provided at: [place], [place] CC: Dr. Chadd Graf documented in this encounterCleveland Clinic [facility] Hospital05-07-2024 History of Present illness Narrative* Susanna Graf MD - 11/14/2023 1:45 PM EDT History Of Present Illness: Andrei Fish is a 72 y.o. female whom presents to me as a new patient for left- sided TM perforation,referred here today by Dr. Mar Mayo. She is status post left-sided tympanoplasty with OCR in December of [address] Augie Tyler at [facility]. In 2017, was told by Dr. Tyler [...] of [address] Augie Tyler at [facility]. Patient's dizziness also is likely d/t tympanic perforation. Patient will require L sided tympanomastoidectomy canal wall up with ossiculoplasty, cartilage graft. Discussed risks and benefits with patient. Tamela Garsia, MS4 I have reviewed the documentation as scribed by Tamela Garsia and agree with the notes. Susanna Graf MD documented in this [facility] Work Phone: 1(415) 222-452605-07-2024 Instructions* Patient Instructions* Nereida Tai Pat - 11/14/2023 1:45 PM EDT Welcome to Dr. Graf's clinic. We are here to assist you through your ENT care at [facility]. Dr. Graf is an Ear surgeon. This means that she specializes in taking care of patients with complex ear problems. Dr. Graf's office number is [phone]. While you may see her at a satellite office, she has a team committed to help meet your healthcare needs at [facility]'s main campus. This number is the most direct way to communicate with the office. Jasmyne is Dr. Graf's secretary specialist and she answers the office phone from [...] may include dieticians, social workers, speech therapists, arboriculture teacher, neurologist, and physical therapist. Dr. Graf will provide these referrals as needed. Please let her know if you would like to request a specific referral. For your convenience, Dr. Graf sees patients at several [facility] locations including [facility] and [facility] at the main campus of [facility]. While we try tomake your appointments as [...] will have to reschedule. documented in this [facility] Work Phone: 1(144) 894-961504-05-2024 History of Present illness Narrative* Ana Hernandez PA-C - 10/13/2023 1:30 PM EDT Images from the original note were not included. NAME: Andrei Fish CLINIC NO.: [id number] DATE OF SERVICE: October 13 2023 (Mary) (Elements copied from Dr. Dupree's note dated August 28, 2023, have been [...] HTN. Improved control even on Tavalisse. 6. Erad lesion - may need biopsy in future. [...] having a mammogram and dexa scan at [facility] per her PCP. She states that [...] 08/29/2022 and then a follow-up with her nut feeder on 09/07/2022. Overall, she is doing well [...] as they are slightlyincreased. Got back from [place] and saw her sisters and had a [...] why she was going to see a nut feeder for her blood pressure. Patient also has [...] PA-C Hematology and Oncology Services Provided at: [place], [place] CC: Dr. Chadd Deluna documented in this encounterCleveland Clinic [facility]on Hospital02-26-2024 Miscellaneous Notes* Telephone Encounter - Jayden Connelly APRN.DRUG ABUSE WORKER - 09/04/2023 12:27 PM EST The following approved medication requests have been transmitted electronically. Requested Prescriptions Signed Prescriptions Disp Refills losartan (COZAAR) 25 mg tablet 180 tablet 3 Sig: take 2 tablets by mouth every day at bedtime Authorizing Provider: JAYDEN CONNELLY APRN.DRUG ABUSE WORKER documented in this encounterCleveland Clinic [facility]02-19-2024 Instructions* Patient Instructions* Rinku Dupree MD - 08/28/2023 2:54 PM EST Continue Tavalisse 100 mg twice daily. Follow up in 6 weeks with labs. documented in this encounterCleveland Clinic [facility] Hospital02-19-2024 History of Present illness Narrative* Rinku Dupree MD - 08/28/2023 2:45 PM EST Images from the original note were not included. NAME: Andrei Fish CLINIC NO.: [id number] DATE OF SERVICE: August 28, 2023 (Roxy) Some elements in this clinic note that are critical to medical decision making have been carefully reviewed and included from a prior clinic note dated: July 17, 2023 (Roxy) Additional Clinicians involved in Andrei Khanvan's care: Dr. Shay, Dr. Deluna DIAGNOSIS: Chronic [...] having a mammogram and dexa scan at [facility] per her PCP. She states that [...] 08/29/2022 and then a follow-up with her nut feeder on 09/07/2022. Overall, she is doing well [...] as they are slightlyincreased. Got back from [place] and saw her sisters and had a [...] why she was going to see a nut feeder for her blood pressure. Patient also has [...] which included preparing to see the patient, jolo-nm-pvms patient care, completing clinical documentation, performing a medically appropriate examination, counseling and educating the patient/family/caregiver, ordering medications, tests, or p rocedures, independently interpreting results (not separately reported), communicating results to the patient/family/caregiver, and care coordination (not separately reported). Rinku Dupree MD, CPE Hematology and Oncology Services Provided at: [place], [place] Scribe Attestation: This note was scribed by Emani Carr on August 28, 2023 under the direction and supervisionof Dr. Rinku Dupree. I attest that all of the information documented is correct to the best of my knowledge. Provider Attestation: I, Rinku Dupree MD, attest that all information documented by the above scribe is correct, and was supervised by me and under my direction. CC: Dr. Chadd Deluna documented in this encounterCleveland Clinic [facility]02-14-2024 History of Present illness Narrative* Mar Mayo MD - 08/23/2023 10:00 AM EST Subjective Patient ID: Andrei Fish is a 72 y.o. female who presents for Ear Problem (Left TM perf). Pt had an apparent left tympanoplasty and OCR in December 2015. Pt states she was told there would need to be revision surgery. Saw another ENT in [place] who was to do the revision, but never performed. No otorrhea. 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 Family History Problem Relation Name Age of Onset Diabetes Mother Hypertension Mother Heart disease Mother Cancer Father Breast cancer Sister Heart disease Sibling Cancer Sibling Active Ambulatory Problems Diagnosis Date Noted Chronic ITP (idiopathic thrombocytopenia) ([facility]) 05/26/2016 Disease of thyroid gland ([facility]) 06/28/2022 Essential hypertension ([facility]) 05/13/2021 Family history of breast cancer 04/13/2017 Lupus ([facility]) 03/03/2016 Nocturnal leg cramps 10/05/2017 Obstructive sleep apnea syndrome 05/13/2021 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[facility]) 06/28/2022 Tobacco dependence 06/28/2022 Dry mouth 01/05/2017 Compression syndrome, nerve 06/28/2022 Abnormal weight loss 03/03/2016 Age-related osteoporosis without current pathological fracture ([facility]) 06/06/2023 Ruptured ear drum, left 06/06/2023 Leg pain, bilateral 06/06/2023 Left wrist pain 06/06/2023 Obesity (BMI 30-39.9) 06/06/2023 Claudication of both lower extremities ([facility]) 06/08/2023 PAD (peripheral artery disease) ([facility]) 06/08/2023 Resolved Ambulatory Problems Diagnosis Date Noted No Resolved Ambulatory Problems Past Medical History: Diagnosis Date Hypertension ([facility]) Past Surgical History: Procedure Laterality Date APPENDECTOMY BI MAMMO GUIDED LOCALIZATION BREAST LEFT Left 03/28/2017 BI MAMMO GUIDED LOCALIZATION BREAST LEFT 03/28/2017 BREAST BIOPSY Left BREAST LUMPECTOMY Left 07/2015 BREAST SURGERY CHOLECYSTECTOMY COLONOSCOPY 2008 EYE SURGERY FRACTURE SURGERY Left leg HYSTERECTOMY Allergies Allergen Reactions Vancomycin Other States had burning sensation t/o entire body. (Infectious disease) States medication was given too fast. Zonbjpt-Jazlrt-Gessv Pertussis Rash Current Outpatient Medications on File [...] evaluated for revision surgery documented in this encounterSelect Specialty [id number] History of Present illness Narrative* Karissa Astudillo, CCC-A - 08/16/2023 8:00 AM EST History: Pt was referred to ENT because of left TM perforation and left hearing loss. Onset of perforation was a few years ago Pt saw ENT in [place] that was going to repair the perforation [...] Left Ear: No seal documented in this [facility]12[facility] Evaluation note* Encounter Date Diagnosis Assessment Notes Treatment Notes Treatment Clinical Notes Jun, HTN (hypertension) (ICD-10 - I10 ) She likely has essential hypertension. Her blood pressure has improved with addition of the spironolactone.. She appears to be euvolemic. Advised to limit the fluid intake to 50 ounces a day and takes low-salt diet. Her renal function has declined due to the hemodynamic changes in setting of betterblood pressure control. She has no evidence of hematuria and only has trace proteinuria on UA. Her renal US showed b/l renal cyst and complex renal cyst in left kidney. I discussed with her the importance of good blood pressure control. Continue Spironolactone 25 mg daily Jun,Lupus (ICD-10 - M32.9)She denies any symptoms. I have advised her to follow-up with rheumatology if she develop symptoms. Jun,hronic ITP (idiopathic thrombocytopenia) (ICD-10 - D69.3)Continue follow-up with hematology. Jun,OSA (obstructive sleep apnea) (ICD-10 - G47.33)She has a sleep apnea. I have advised her to follow with sleep specialist. 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 Her CT scan results reviewed from the [facility] which also showed bilateral renal cysts. Will repeat renal US in September 2022Jun,nemia (ICD-10 - D64.9)She follows with Hematology Jun,Hyperuricemia (ICD-10 - E79.0)She has hyperuricemia due to CKD. She denies any recent gout flare. Will continue to monitor without medication. Jun,Vitamin D deficiency (ICD-10 - E55.9)She has a vitamin D deficiency but her calcium, phosphorus and PTH are within the goal. I have prescribed oral vitamin D 50,000 unit once weekly. [facility] Other 11-27-2023 History of Present illness Narrative* Ana Hernandez PA-C - 06/05/2023 8:47 AM EST Images from the original note were not included. NAME: Andrei Fish CLINIC NO.: [id number] DATE OF SERVICE: June 05, 2023 (Mary) (Elements copied from Dr. Dupree's note dated April 20, 2023, have been [...] having a mammogram and dexa scan at [facility] per her PCP. She states that [...] 08/29/2022 and then a follow-up with her nut feeder on 09/07/2022. Overall, she is doing well [...] as they are slightlyincreased. Got back from [place] and saw her sisters and had a [...] why she was going to see a nut feeder for her blood pressure. Patient also has [...] which included preparing to see the patient, bhty-sh-auxe patient care, completing clinical documentation, obtaining and/or reviewing separately obtained history, performing a medically appropriate examination, counseling and educating the pat ient/family/caregiver, ordering medications, tests, or procedures, independently interpreting results (not separately reported), communicating results to the patient/family/caregiver, and care coordination (not separately reported). Ana Hernandez PA-C CC: Dr. Chadd Deluna documented in this encounterCleveland [facility]10-23-2023 Miscellaneous Notes* Telephone Encounter - Krista Harden [facility] - 05/01/2023 2:44 PM EDT Please Fax RX to [facility] @ [phone] Emiliano Harden, PharmD, BCOP documented in this encounterCleveland Clinic Avon Hospital10-12-2023 Instructions* Patient Instructions* Rinku Dupree MD - 04/20/2023 10:47 AM EDT Continue Tavalisse 100 mg twice daily. Follow up in 6 weeks with labs. documented in this encounterCleveland Clinic [facility]10-12-2023 History of Present illness Narrative* Rinku Dupree MD - 04/20/2023 10:30 AM EDT Images from the original note were not included. NAME: FishAndrei CLINIC NO.: [id number] DATE OF SERVICE: April 20, 2023 (Roxy) Some elements in this clinic note that are critical to medical decision making have been carefully reviewed and included from a prior clinic note dated: March 09, 2023 (Roxy) Additional Clinicians involved in Paul[facility] Ruben Abe's [...] 08/29/2022 and then a follow-up with her nut feeder on 09/07/2022. Overall, she is doing well [...] as they are slightlyincreased. Got back from [place] and saw her sisters and had a nice trip with her of 54 yrs. Updated Visit, February 11, 2022: Andrei Fish returns for scheduled follow-up. She remains on Tavalisse 100 mg twice daily and is tolerating it well. She denies any signs of bleeding or abnormal bruising. Also no signs of blood clots. She saw Dr. iGlson Troncoso today. She states that she was [...] why she was going to see a nut feeder for her blood pressure. Patient also has [...] which included preparing to see the patient, fzqe-uf-tkfc patient care, completing clinical documentation, obtaining and/or reviewing separately obtained history, performing a medically appropriate examination, counseling and educating the pat ient/family/caregiver, ordering medications, tests, or procedures, independently interpreting results (not separately reported), communicating results to the patient/family/caregiver, and care coordination (not separately reported). Rinku Dupree MD, CPE Hematology and Oncology Services Provided at: [place], [place] CC: Dr. Chadd Deluna documented in this encounterCleveland Clinic [facility]10-11-2023 Miscellaneous Notes* Telephone Encounter - Joanne Alvarez - 04/19/2023 4:02 PM EDT Patient has an appt on 04/20. Would you like labs? documented in this encounterCleveland Clinic [facility]09-05-2023 Evaluation note* Encounter Date Diagnosis Assessment Notes Treatment Notes Treatment Clinical Notes Mar, Complex renal cyst (ICD-10 - N28 .1) [facility] Other [id number] Instructions* Patient Instructions* Rinku Dupree MD - 03/09/2023 2:54 PM EDT Continue Tavalisse 100 mg twice daily. Follow up in 6 weeks with labs. documented in this encounterCleveland Clinic [facility]08-31-2023 History of Present illness Narrative* Rinku Dupree MD - 03/09/2023 2:50 PM EDT Images from the original note were not included. NAME: Andrei Fish [facility] NO.: [id number] DATE OF SERVICE: March 09, 2023 (Roxy) [...] 08/29/2022 and then a follow-up with her nut feeder on 09/07/2022. Overall, she is doing well [...] as they are slightlyincreased. Got back from [place] and saw her sisters and had a [...] why she was going to see a nut feeder for her blood pressure. Patient also has [...] which included preparing to see the patient, jfdh-cd-lfav patient care, completing clinical documentation, performing a medically appropriate examination, counseling and educating the patient/family/caregiver, ordering medications, tests, or p rocedures, and independently interpreting results (not separately reported). Rinku Dupree MD, CPE Hematology and Oncology Services Provided at: [place], [place] CC: Dr. Chadd Deluna documented in this encounterCleveland Clinic Avon Hospital07-20-2023 Instructions* Patient Instructions* Rinku Dupree MD - 01/26/2023 3:14 PM EDT Continue Tavalisse 100 mg twice daily. Follow up in 6 weeks with labs. documented in this encounterCleveland Clinic [facility] Hospital07-20-2023 History of Present illness Narrative* Rinku Dupree MD - 01/26/2023 3:10 PM EDT NAME: Andrei Fish CLINIC NO.: [id number] DATE OF SERVICE: January 26, 2023 (Roxy) [...] 08/29/2022 and then a follow-up with her nut feeder on 09/07/2022. Overall, she is doing well [...] as they are slightlyincreased. Got back from [place] and saw her sisters and had a [...] why she was going to see a nut feeder for her blood pressure. Patient also has [...] which included preparing to see the patient, vuqr-bu-yirq patient care, completing clinical documentation, performing a medically appropriate examination, counseling and educating the patient/family/caregiver, ordering medications, tests, or p rocedures, and independently interpreting results (not separately reported). Rinku Dupree MD, CPE Hematology and Oncology Services Provided at: [place], [place] CC: Dr. Chadd Deluna documented in this encounterCleveland Clinic [facility]06-08-2023 Instructions* Patient Instructions* Rinku Dupree MD - 12/15/2022 2:39 PM EDT Continue Tavalisse 100 mg twice daily. Follow up in 6 weeks with labs. documented in this encounterCleveland Clinic [facility]06-08-2023 History of Present illness Narrative* Rinku Dupree MD - 12/15/2022 2:35 PM EDT Images from the original note were not included. NAME: Andrei Fish [facility] NO.: [id number] DATE OF SERVICE: December 15, 2022 ([email or web address]) Some elements in this clinic note [...] 08/29/2022 and then a follow-up with her nut feeder on 09/07/2022. Overall, she is doing well [...] as they are slightlyincreased. Got back from [place] and saw her sisters and had a [...] why she was going to see a nut feeder for her blood pressure. Patient also has [...] which included preparing to see the patient, fonh-nk-jbdf patient care, completing clinical documentation, performing a medically appropriate examination, counseling and educating the patient/family/caregiver, ordering medications, tests, or p rocedures, and independently interpreting results (not separately reported). Rinku Dupree MD, CPE Hematology and Oncology Services Provided at: [place], [place] CC: Dr. Chadd Deluna documented in this encounterCleveland Clinic [facility] Hospital04-20-2023 Instructions* Patient Instructions* Rinku Dupree MD - 10/27/2022 3:37 PM EDT Continue Tavalisse 100 mg twice daily. (Actually takes 2 pills at the same time) Follow up in 6 weeks with labs. documented in this encounterCleveland Clinic [facility] Hospital04-20-2023 History of Present illness Narrative* Rinku Dupree MD - 10/27/2022 3:34 PM EDT Images from the original note were not included. NAME: Andrei Fish [facility] NO.: [id number] DATE OF SERVICE: October 27, 2022 (fabiola) Some elements in this clinic note [...] 08/29/2022 and then a follow-up with her nut feeder on 09/07/2022. Overall, she is doing well [...] as they are slightlyincreased. Got back from [place] and saw her sisters and had a [...] well. Updated Visit, December 17, 2021: Andrei Fihs returns for scheduled follow-up. She remains on [...] why she was going to see a nut feeder for her blood pressure. Patient also has [...] which included preparing to see the patient, njic-bj-dgfs patient care, completing clinical documentation, performing a medically appropriate examination, counseling and educating the patient/family/caregiver, ordering medications, tests, or p rocedures, and independently interpreting results (not separately reported). Rinku Dupree MD, CPE Hematology and Oncology Services Provided at: [place], [place] CC: Dr. Chadd Deluna documented in this encounterCleveland Clinic [facility]03-17-2023 Miscellaneous Notes* Telephone Encounter - Joanne Alvarez - 09/23/2022 9:24 AM EDT Patient would like script for 90 days please. Joanne Alvarez documented in this encounterCleveland Clinic [facility]03-10-2023 Miscellaneous Notes* Telephone Encounter - Rinku Dupree MD - 09/16/2022 3:30 PM EST This really should go through her PCP documented in this encounterCleveland Clinic [facility]03-09-2023 Instructions* Patient Instructions* Rinku Dupree MD - 09/15/2022 3:53 PM EST Continue Tavalisse 100 mg twice daily. (Actually takes 2 pills at the same time) Losartan was increased by nephrology. Taking Losartan 50 mg daily. Continue HCTZ. Follow up in 6 weeks with labs. documented in this encounterCleveland Clinic [facility] Hospital03-09-2023 History of Present illness Narrative* Rinku Dupree MD - 09/15/2022 3:34 PM EST Images from the original note were not included. NAME: Andrei Fish [facility] NO.: [id number] DATE OF SERVICE: September 15, 2022 (Roxy) [...] 08/29/2022 and then a follow-up with her nut feeder on 09/07/2022. Overall, she is doing well [...] as they are slightlyincreased. Got back from [place] and saw her sisters and had a [...] why she was going to see a nut feeder for her blood pressure. Patient also has [...] which included preparing to see the patient, reuj-tx-akzk patient care, completing clinical documentation, performing a medically appropriate examination, counseling and educating the patient/family/caregiver, ordering medications, tests, or p rocedures, and independently interpreting results (not separately reported). Rinku Dupree MD, CPE Hematology and Oncology Services Provided at: [place], [place] CC: Dr. Chadd Deluna documented in this encounterCleveland Clinic [facility]03-01-2023 Evaluation note* Encounter Date Diagnosis Assessment Notes Treatment Notes Treatment Clinical Notes Sep, HTN (hypertension) (ICD-10 - I10 ) She likely has essential hypertension. Her blood pressure is high. She appears to be hypervolemic. Advised to limit the fluid intake to 50 ounces a day and takes low-salt diet. Her renal US showed b/l renal cyst and complex renal cyst in left kidney. I discussed with her the importance of good blood pressure control. Start Spironolactone 25 mg daily Sep,Lupus (ICD-10 - M32.9)She denies any symptoms. I have advised her to follow-up with rheumatology if she develop symptoms. Sep,hronic ITP (idiopathic thrombocytopenia) (ICD-10 - D69.3)Continue follow-up with hematology. Sep,OSA (obstructive sleep apnea) (ICD-10 - G47.33)She has a sleep apnea. There is a possibility her uncontrolled blood pressure may be due to the sleep apnea. I have advised her to follow with sleep specialist. 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 Her repeat renal ultrasound showed no evidence of kidney mass. Sep,nemia (ICD-10 - D64.9)She follows with Hematology [facility] Other 01-27-2023 Miscellaneous Notes* Telephone Encounter - Jayden Connelly APRN.DRUG ABUSE WORKER - 08/05/2022 2:23 PM EST The following [...] appropriate Jayden Connelly APRN.STEPH documented in this encounterCleveland Clinic [facility] Hospital01-26-2023 Miscellaneous Notes* Telephone Encounter - Karen Muñoz - 08/04/2022 2:40 PM EST Patient wanted to hold off on being referred to Dermatology at this time. She is going to check with her insurance company for in network providers and let our office know on where she would like to be referred to. Karen Muñoz documented in this encounterCleveland Clinic [facility]01-26-2023 History of Present illness Narrative* Jayden Connelly APRN.CNP - 08/04/2022 2:04 PM EST Images from the original note were not included. NAME: Andrei Fish [facility] NO.: [id number] DATE OF SERVICE: August 04, 2021 (Godwin) Some elements in this clinic note that are critical to medical decision making have been carefully reviewed and included from a prior clinic note dated: June 23, 2022. (Dr. Dupree) Additional Clinicians involved in [facility] [...] HTN. Improved control even on Tavalisse. 6. Raed lesion - may need biopsy in future. [...] 08/29/2022 and then a follow-up with her nut feeder on 09/07/2022. Overall, she is doing well [...] as they are slightlyincreased. Got back from [place] and saw her sisters and had a [...] well. Updated Visit, December 17, 2021: Andrei Fsih returns for scheduled follow-up. She remains on [...] why she was going to see a nut feeder for her blood pressure. Patient also has [...] APRN.CNP Hematology and Oncology Services Provided at: [place], [place] CC: Dr. Chadd Deluna I spent a total of 30 minutes on the date of the service which included preparing to see the patient, yvvg-hw-gudu patient care, completing clinical documentation, obtaining and/or reviewing separately obtained history, performing a medically appropriate examination, counseling and educating the pat ient/family/caregiver, ordering medications, tests, or procedures, independently interpreting results (not separately reported), and communicating results to the patient/family/caregiver. documented in this encounterCleveland Clinic [facility]01-16-2023 Miscellaneous Notes* Telephone Encounter - Jayden Connelly APRN.CNP - 07/25/2022 10:33 AM EST The following approved medication requests have been transmitted electronically. Requested Prescriptions Signed Prescriptions Disp Refills benzonatate (TESSALON PERLE) 100 mg capsule 100 capsule 0 Sig: TAKE 1 CAPSULE BY MOUTH EVERY 6 HOURS NEEDED FOR COUGH. Authorizing Provider: JAYDEN CONNELLY APRN.CNP documented in this encounterCleveland Clinic [facility] Hospital01-04-2023 Miscellaneous Notes* Telephone Encounter - Jayden Connelly APRN.STEPH - 07/13/2022 4:01 PM EST The following approved medication requests have been transmitted electronically. Requested Prescriptions Signed Prescriptions Disp Refills losartan (COZAAR) 25 mg tablet 60 tablet 1 Sig: TAKE 2 TABLETS BY MOUTH EVERY DAY Authorizing Provider: JAYDEN CONNELLY APRN.DRUG ABUSE WORKER documented in this encounterCleveland Clinic Avon Hospital12-15-2022 Instructions* Patient Instructions* Rinku Dupree MD - 06/23/2022 2:44 PM EST Continue Tavalisse 100 mg twice daily. Losartan was increased by nephrology. Taking Losartan 50 mg daily. Continue HCTZ. Right read lesion - trial of ice. Follow up in 6 weeks with labs. See Jayden quinn. - consider biopsy of right read. documented in this encounterCleveland Clinic Av[facility] Hospital12-15-2022 History of Present illness Narrative* Rinku Dupree MD - 06/23/2022 2:30 PM EST Images from the original note were not included. NAME: Andrei Fish NO.: [id number] DATE OF SERVICE: June 23, 2022 (Roxy) [...] as they are slightlyincreased. Got back from [place] and saw her sisters and had a [...] why she was going to see a nut feeder for her blood pressure. Patient also has [...] which included preparing to see the patient, xgeq-ns-uqpt patient care, completing clinical documentation, performing a medically appropriate examination, counseling and educating the patient/family/caregiver, ordering medications, tests, or p rocedures, and independently interpreting results (not separately reported). Rinku Dupree MD, CPE Hematology and Oncology Services Provided at: [place], [place] CC: Dr. Chadd Deluna documented in this encounterCleveland Clinic [facility]11-11-2022 Miscellaneous Notes* Telephone Encounter - Jayden Connelly APRN.CNP - 05/20/2022 3:34 PM EST The following approved medication requests have been transmitted electronically. Requested Prescriptions Signed Prescriptions Disp Refills losartan (COZAAR) 25 mg tablet 60 tablet 1 Sig: TAKE 2 TABLETS BY MOUTH EVERY DAY Authorizing Provider: JAYDEN CONNELLY APRN.CNP documented in this encounterCleveland Clinic [facility]11-03-2022 History of Present illness Narrative* Jayden Connelly APRN.CNP - 05/12/2022 2:15 PM EDT NAME: Andrei Fish CLINIC NO.: [id number] DATE OF SERVICE: May 12, 2022 (Godwin) Some elements in this clinic note that are critical to medical decision making have been carefully reviewed and included from a prior clinic note dated: March 31, 2022 (Dr. Dupree) Additional Clinicians involved in Andrei Fish's care: Dr. Mikie Wilkinson CC: Chronic ITP ASSESSMENT/PLAN: 1. Thrombocytopenia (HCC) [...] as they are slightlyincreased. Got back from [place] and saw her sisters and had a [...] why she was going to see a nut feeder for her blood pressure. Patient also has [...] may need. Updated Visit, June 25, 2020: Anrdei is a very nice 69-year-old woman returning [...] No family history on file. Jayden Connelly APRN.DRUG ABUSE WORKER Hematology and Oncology Services Provided at: [place], [place] CC: Dr. Chadd Deluna I spent a total of 30 minutes on the date of the service which included preparing to see the patient, oieq-gs-peph patient care, completing clinical documentation, obtaining and/or reviewing separately obtained history, performing a medically appropriate examination, counseling and educating the pat ient/family/caregiver, ordering medications, tests, or procedures, independently interpreting results (not separately reported), and communicating results to the patient/family/caregiver. documented in this encounterCleveland Clinic [facility] Hospital09-22-2022 Instructions* Patient Instructions* Rinku Dupree MD - 03/31/2022 2:50 PM EDT 1. Continue Tavalisse. 2. Losartan was increased by nephrology. Taking Losartan 50 mg daily. 3. Contnue HCTZ. 4. Follow up in 6 weeks with labs. documented in this encounterCleveland Clinic [facility]09-22-2022 History of Present illness Narrative* Rinku Dupree MD - 03/31/2022 2:43 PM EDT Images from the original note were not included. NAME: Andrei Fish [facility] NO.: [id number] DATE OF SERVICE: March 31, 2022 Some [...] as they are slightlyincreased. Got back from [place] and saw her sisters and had a [...] why she was going to see a nut feeder for her blood pressure. Patient also has [...] anything currently for her ITP. She has mitsy having her blood checked every three weeks [...] which included preparing to see the patient, ybpw-dr-ysdw patient care, completing clinical documentation, performing a medically appropriate examination, ordering medications, tests, or procedures, and independently interpreting results (not separately reported). Rinku Dupree MD, CPE Hematology and Oncology Services Provided at: [place], [place] CC: Chadd Deluna documented in this encounterCleveland Clinic [facility]08-29-2022 Miscellaneous Notes* Telephone Encounter - Jayden Connelly APRN.DRUG ABUSE WORKER - 03/07/2022 12:22 PM EDT The following approved medication requests have been transmitted electronically. Requested Prescriptions Signed Prescriptions Disp Refills pilocarpine (SALAGEN) 5 mg tablet 90 tablet 0 Sig: TAKE 1 TABLET BY MOUTH THREE TIMES A DAY Authorizing Provider: JAYDEN CONNELLY APRN.CNP documented in this encounterCleveland Clinic Avon Hospital08-29-2022 Miscellaneous Notes* Telephone Encounter - Jayden Connelly APRN.CNP - 03/07/2022 11:21 AM EDT The following approved medication requests have been transmitted electronically. Requested Prescriptions Signed Prescriptions Disp Refills losartan (COZAAR) 25 mg tablet 60 tablet 1 Sig: TAKE 2 TABLETS BY MOUTH EVERY DAY Authorizing Provider: JAYDEN CONNELLY APRN.CNP documented [facility] History of Present illness Narrative* Jayden Connelly APRN.CNP - 02/11/2022 1:21 PM EDT Images from the original note were not included. NAME: Andrei Fish CLINIC NO.: [id number] DATE OF SERVICE: February 11, 2022 Some elements in this clinic note that are critical to medical decision making have been carefully reviewed and included from a prior clinic note dated: December 17, 2021. Additional Clinicians involved in Paulalicia Ruben Fish's [...] why she was going to see a nut feeder for her blood pressure. Patient also has [...] file. Jayden Connelly APRN.CNP Services Provided at: [place], [place] CC: Chadd Deluna documented in this encounterC[facility] Miscellaneous Notes* Telephone Encounter - Jayden Connelly APRN.CNP - 01/11/2022 4:13 PM EDT The following approved medication requests have been transmitted electronically. Signed Prescriptions Disp Refills losartan (COZAAR) 25 mg tablet 60 tablet 1 Sig: TAKE 2 TABLETS BY MOUTH EVERY DAY JOVON: No Authorizing Provider: JAYDEN CONNELLY APRN.CNP documented in this encounterC[facility]06-10-[facility] History of Present illness Narrative* Jyaden Connelly APRN.CNP - 12/17/2021 3:13 PM EDT Images from the original note were not included. NAME: Abe Paulalicia [facility] NO.: [id number] DATE OF SERVICE: December 17, 2021 Some [...] why she was going to see a nut feeder for her blood pressure. Patient also has [...] No family history on file. Jayden Connelly APRN.DRUG ABUSE WORKER Services Provided at: [place], [place] CC: Chadd Shay Atif Deluna Almost had a fall MRI kidney- [facility] documented in this encounterC[facility] Evaluation note* Encounter Date Diagnosis Assessment Notes Treatment Notes Treatment Clinical Notes November, HTN (hypertension) (ICD-10 - I10 ) She likely has essential hypertension. There is a possibility of underlying sleep apnea. I have increased the dose of the losartan to 50 mg daily. I have ordered a renal ultrasound to evaluate the renal anatomy. I discussed with her the importance of good blood pressure control. November,Lupus (ICD-10 - M32.9)She denies any symptoms. I have advised her to follow-up with rheumatology if she develop symptoms. November,hronic ITP (idiopathic thrombocytopenia) (ICD-10 - D69.3)Continue follow-up with hematology. November,SA (obstructive sleep apnea) (ICD-10 - G47.33)She has a sleep apnea. There is a possibility her uncontrolled blood pressure may be due to the sleep apnea. I have advised her to follow with sleep specialist. [facility] Other 04-21-2022 History of Present illness Narrative* Rinku Dupree MD - 10/28/2021 11:41 AM EDT Images from the original note were not included. NAME: Andrei Fish CLINIC NO.: [id number] DATE OF SERVICE: October 28, 2021 Some [...] why she was going to see a nut feeder for her blood pressure. Patient also has [...] which included preparing to see the patient, [id number] patient care, completing clinical documentation, performing a medically appropriate examination, ordering medications, tests, or procedures and care coordination (not separately reporte d). Rinku Dupree MD, CPE Services Provided at: [facility], [place], [place] & [place], [place] CC: Chadd Deluna documented in this encounterC[facility]04-18-2022 History of Present illness Narrative* Mary [...] Care Gap or Scheduling/Wellness visits Payer: Payor: [facility] / Plan: [facility] [employer] HMO / Product Type: HMO / [...] 25, 2021 8:13 AM documented in this encounterC[facility]04-12-2022 Miscellaneous Notes* Telephone Encounter - Jayden [...] Provider: JAYDEN CONNELLY APRN.CNP documented in this encounterC[facility]11-03-2021 Miscellaneous Notes* Telephone Encounter - Krista [...] questions. Gerard Harden RPh documented in this encounterC[facility]* Diagnosis Essential hypertension Unspecified essential hypertension Chronic ITP (idiopathic thrombocytopenia) (HCC) Immune thrombocytopenic purpura Obstructive sleep apnea syndrome Obstructive sleep apnea (adult) (pediatric) Hypertension, unspecified type [facility] Diagnosis Chronic ITP (idiopathic thrombocytopenia) (HCC)- Primary Immune thrombocytopenic purpura Essential hypertension Unspecified essential hypertension Obstructive sleep apnea syndrome Obstructive sleep apnea (adult) (pediatric) Lung nodules Other nonspecific abnormal finding of lung field Systemic lupus erythematosus, unspecified SLE type, unspecified organ involvement status (HCC) [facility]* Diagnosis Chronic ITP (idiopathic thrombocytopenia) (HCC)- Primary Immune thrombocytopenic purpura Hypertension, unspecified type Essential hypertension Unspecified essential hypertension Obstructive sleep apnea syndrome Obstructive sleep apnea (adult) (pediatric) Lung nodules Other nonspecific abnormal finding of lung field Systemic lupus erythematosus, unspecified SLE type, unspecified organ involvement status (HCC) [facility]* Diagnosis Hypertension, unspecified type [facility]* Diagnosis Essential hypertension Unspecified essential hypertension Chronic ITP (idiopathic thrombocytopenia) (HCC) Immune thrombocytopenic purpura Obstructive sleep apnea syndrome Obstructive sleep apnea (adult) (pediatric) Hypertension, unspecified type [facility]* Diagnosis Hypertension, unspecified type [facility] Diagnosis Chronic ITP (idiopathic thrombocytopenia) (HCC)- Primary Immune thrombocytopenic purpura Essential hypertension Unspecified essential hypertension Obstructive sleep apnea syndrome Obstructive sleep apnea (adult) (pediatric) Systemic lupus erythematosus, unspecified SLE type, unspecified organ involvement status (HCC) [facility] this encounter [facility]* Diagnosis Hypertension, unspecified type [facility] this encounter [facility]* Diagnosis Chronic ITP (idiopathic thrombocytopenia) (HCC)- Primary Immune thrombocytopenic purpura Obstructive sleep apnea syndrome Obstructive sleep apnea (adult) (pediatric) documented [facility] this encounter [facility]* Diagnosis Chronic ITP (idiopathic thrombocytopenia) (HCC)- Primary Immune thrombocytopenic purpura Obstructive sleep apnea syndrome Obstructive sleep apnea (adult) (pediatric) Essential hypertension Unspecified essential hypertension documented in this encounter [facility] note* Diagnosis Hypertension, unspecified type documented in this encounter [facility] note* Diagnosis Chronic ITP (idiopathic thrombocytopenia) (HCC)- Primary Immune thrombocytopenic purpura Hypertension, unspecified type Obstructive sleep apnea syndrome Obstructive sleep apnea (adult) (pediatric) Systemic lupus erythematosus, unspecified SLE type, unspecified organ involvement status (HCC) documented in this encounter [facility] note* Diagnosis Chronic ITP (idiopathic thrombocytopenia) (HCC)- Primary Immune thrombocytopenic purpura Obstructive sleep apnea syndrome Obstructive sleep apnea (adult) (pediatric) Hypertension, unspecified type Systemic lupus erythematosus, unspecified SLE type, unspecified organ involvement status (HCC) Malaise and fatigue Other malaise and fatigue Skin lesion of right lower extremity documented in this encounter [facility] note* Diagnosis Hypertension, unspecified type documented in this encounter [facility] noteNo assessment information [facility] Work Phone: Evaluation note* Diagnosis Chronic ITP (idiopathic thrombocytopenia) (HCC)- Primary Immune thrombocytopenic purpura Obstructive sleep apnea syndrome Obstructive sleep apnea (adult) (pediatric) documented in this encounter [facility] note* Diagnosis Hypertension, unspecified type documented in this encounter [facility] note* Diagnosis Chronic ITP (idiopathic thrombocytopenia) (HCC)- Primary Immune thrombocytopenic purpura documented in this encounter [facility] note* Diagnosis Chronic ITP (idiopathic thrombocytopenia) (HCC)- Primary Immune thrombocytopenic purpura Hypertension, unspecified type Obstructive sleep apnea syndrome Obstructive sleep apnea (adult) (pediatric) documented in this encounter [facility] note* Diagnosis Chronic ITP (idiopathic thrombocytopenia) (HCC)- Primary Immune thrombocytopenic purpura Essential hypertension Unspecified essential hypertension Obstructive sleep apnea syndrome Obstructive sleep apnea (adult) (pediatric) Systemic lupus erythematosus, unspecified SLE type, unspecified organ involvement status (HCC) documented in this encounter [facility] noteNo InformationNosaint [facility] [employer] Other Evaluation note* Diagnosis Chronic ITP (idiopathic thrombocytopenia) (HCC)- Primary Immune thrombocytopenic purpura documented in this encounter [facility] note* Diagnosis Chronic ITP (idiopathic thrombocytopenia) (HCC)- Primary Immune thrombocytopenic purpura Essential hypertension Unspecified essential hypertension [facility] encounter [facility]* Diagnosis Chronic ITP (idiopathic thrombocytopenia) (HCC)- Primary Immune thrombocytopenic purpura Essential hypertension Unspecified essential hypertension Hypertension, unspecified type [facility]* Diagnosis 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, left [facility] Diagnosis 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 [facility] Diagnosis Chronic ITP (idiopathic thrombocytopenia) (HCC)- Primary Immune thrombocytopenic purpura Essential hypertension Unspecified essential hypertension Obstructive sleep apnea syndrome Obstructive sleep apnea (adult) (pediatric) Systemic lupus erythematosus, unspecified SLE type, unspecified organ involvement status ([facility]) Malaise and fatigue Other malaise and fatigue documented [facility] this encounter [facility]* Diagnosis Hypertension, unspecified type [facility]* Diagnosis Cholesteatoma of left ear documented in this encounter [facility] Work Phone: Evaluation note* Diagnosis Cholesteatoma of left ear Perforation of left tympanic membrane Cholesteatoma of left ear documented in this encounter [facility] Work Phone: Evaluation note* Diagnosis Chronic ITP (idiopathic thrombocytopenia) (HCC)- Primary Immune thrombocytopenic purpura Stage 3b chronic kidney disease (HCC) Secondary hypertension Other secondary hypertension, unspecified Obstructive sleep apnea syndrome Obstructive sleep apnea (adult) (pediatric) documented [facility] this encounter [facility]* Diagnosis Preoperative examination- Primary Preoperative examination, unspecified Preoperative clearance- Primary Preoperative examination, unspecified documented [facility] this encounter [facility]* Diagnosis Cholesteatoma of left ear- Primary Preoperative clearance Unspecified pre-operative examination Cholesteatoma of left ear Post-operative pain Other acute postoperative pain HTN (hypertension) Unspecified essential hypertension documented in this encounter [facility] Work Phone: Evaluation note* Diagnosis Essential hypertension Unspecified essential hypertension Chronic ITP (idiopathic thrombocytopenia) (HCC) Immune thrombocytopenic purpura Obstructive sleep apnea syndrome Obstructive sleep apnea (adult) (pediatric) [facility] encounter [facility]* Diagnosis Chronic ITP (idiopathic thrombocytopenia) (HCC)- Primary Immune thrombocytopenic purpura Essential hypertension Unspecified essential hypertension Obstructive sleep apnea syndrome Obstructive sleep apnea (adult) (pediatric) Stage 3b chronic kidney disease (HCC) [facility] encounter [facility]* Diagnosis 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 Other vitamin B12 deficiency anemia Abnormal weight loss Loss of weight Lupus (HCC) Systemic lupus erythematosus Thrombocytopenia (HCC) Thrombocytopenia, unspecified Chronic ITP (idiopathic thrombocytopenia) (HCC) Immune thrombocytopenic purpura [facility] encounter [facility]* Diagnosis Chronic ITP (idiopathic thrombocytopenia) (HCC)- 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 Other vitamin B12 deficiency anemia Obstructive sleep apnea syndrome Obstructive sleep apnea (adult) (pediatric) [facility] encounter [facility]* Diagnosis Left leg pain- Primary Pain in soft tissues of limb documented [facility]* Diagnosis Coronary artery disease involving 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 (CMS/HCC) [facility] Diagnosis 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 Other vitamin B12 deficiency anemia Thrombocytopenia (HCC) Thrombocytopenia, unspecified Lupus Systemic lupus erythematosus Abnormal weight loss Loss of weight Chronic ITP (idiopathic thrombocytopenia) (HCC) Immune thrombocytopenic purpura [facility] Hyperglycemia- Primary Other abnormal glucose Chronic ITP (idiopathic thrombocytopenia) (HCC) 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 Other vitamin B12 deficiency anemia Obstructive sleep apnea syndrome Obstructive sleep apnea (adult) (pediatric) [facility] Diagnosis Ruptured ear drum, left- [...] peripheral vascular disease Coronary artery disease involving 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 (CMS/HCC)- Primary Calcification of aortic valve Essential hypertension (CMS/HCC) Unspecified essential hypertension Thyroid nodule (CMS/HCC) Nontoxic uninodular goiter Obstructive sleep apnea syndrome- Primary Obstructive sleep apnea (adult) (pediatric) PAH (pulmonary artery hypertension) (CMS/HCC) Other chronic pulmonary heart diseases Coronary artery disease involving 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 (CMS/HCC)- Primary Elevated glucose level Essential hypertension (CMS/HCC) Unspecified essential hypertension Encounter for screening mammogram for malignant neoplasm of breast Other chest pain Disease of thyroid gland (CMS/HCC) Unspecified disorder of thyroid Obesity (BMI 30-39.9) Posterior left knee pain Thyroid nodule (CMS/HCC)- Primary Nontoxic uninodular goiter 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 Coronary artery disease involving 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 (CMS/HCC) Pre-diabetes Other abnormal glucose Obesity (BMI 30-39.9) Diarrhea, unspecified type documented in this encounter [facility]* Diagnosis Ruptured ear [...] peripheral vascular disease Coronary artery disease involving 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 (CMS/HCC)- Primary Calcification of aortic valve Essential hypertension (CMS/HCC) Unspecified essential hypertension Thyroid nodule (CMS/HCC) Nontoxic uninodular goiter Obstructive sleep apnea syndrome- Primary Obstructive sleep apnea (adult) (pediatric) PAH (pulmonary artery hypertension) (CMS/HCC) Other chronic pulmonary heart diseases Coronary artery disease involving 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 (CMS/HCC)- Primary Elevated glucose level Essential hypertension (CMS/HCC) Unspecified essential hypertension Encounter for screening mammogram for malignant neoplasm of breast Other chest pain Disease of thyroid gland (CMS/HCC) Unspecified disorder of thyroid Obesity (BMI 30-39.9) Posterior left knee pain Thyroid nodule (CMS/HCC)- Primary Nontoxic uninodular goiter 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 Coronary artery disease involving 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 (CMS/HCC) Pre-diabetes Other abnormal glucose Obesity (BMI 30-39.9) Diarrhea, unspecified type Multiple lung nodules on CT- Primary documented in this encounter [facility]* Diagnosis Ruptured ear drum, [...] peripheral vascular disease Coronary artery disease involving 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 (CMS/HCC)- Primary Calcification of aortic valve Essential hypertension (CMS/HCC) Unspecified essential hypertension Thyroid nodule (CMS/HCC) Nontoxic uninodular goiter Obstructive sleep apnea syndrome- Primary Obstructive sleep apnea (adult) (pediatric) PAH (pulmonary artery hypertension) (CMS/HCC) Other chronic pulmonary heart diseases Coronary artery disease involving 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 (CMS/HCC)- Primary Elevated glucose level Essential hypertension (CMS/HCC) Unspecified essential hypertension Encounter for screening mammogram for malignant neoplasm of breast Other chest pain Disease of thyroid gland (CMS/HCC) Unspecified disorder of thyroid Obesity (BMI 30-39.9) Posterior left knee pain Thyroid nodule (CMS/HCC)- Primary Nontoxic uninodular goiter 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 Coronary artery disease involving 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 (CMS/HCC) Pre-diabetes Other abnormal glucose Obesity (BMI 30-39.9) Diarrhea, unspecified type Encounter for subsequent annual wellness visit (AWV) in Medicare patient- Primary Tobacco dependence Tobacco use disorder Pre-diabetes Other abnormal glucose Obesity (BMI 30-39.9) Age-related osteoporosis without current pathological fracture (CMS/HCC) Coronary artery disease involving 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 (CMS/HCC) Essential hypertension (CMS/HCC) Unspecified essential hypertension documented in this encounter [facility]* Diagnosis Ruptured ear [...] peripheral vascular disease Coronary artery disease involving 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 (CMS/HCC)- Primary Calcification of aortic valve Essential hypertension (CMS/HCC) Unspecified essential hypertension Thyroid nodule (CMS/HCC) Nontoxic uninodular goiter Obstructive sleep apnea syndrome- Primary Obstructive sleep apnea (adult) (pediatric) PAH (pulmonary artery hypertension) (CMS/HCC) Other chronic pulmonary heart diseases Coronary artery disease involving 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 (CMS/HCC)- Primary Elevated glucose level Essential hypertension (CMS/HCC) Unspecified essential hypertension Encounter for screening mammogram for malignant neoplasm of breast Other chest pain Disease of thyroid gland (CMS/HCC) Unspecified disorder of thyroid Obesity (BMI 30-39.9) Posterior left knee pain Thyroid nodule (CMS/HCC)- Primary Nontoxic uninodular goiter 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 Coronary artery disease involving 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 (CMS/HCC) Pre-diabetes Other [...] pathological fracture (CMS/HCC) Coronary artery disease involving 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 (CMS/HCC) Essential hypertension [...] peripheral vascular disease Coronary artery disease involving 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 (CMS/HCC)- Primary Calcification of aortic valve Essential hypertension (CMS/HCC) Unspecified essential hypertension Thyroid nodule (CMS/HCC) Nontoxic uninodular goiter Obstructive sleep apnea syndrome- Primary Obstructive sleep apnea (adult) (pediatric) PAH (pulmonary artery hypertension) (CMS/HCC) Other chronic pulmonary heart diseases Coronary artery disease involving 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 (CMS/HCC)- Primary Elevated glucose level Essential hypertension (CMS/HCC) Unspecified essential hypertension Encounter for screening mammogram for malignant neoplasm of breast Other chest pain Disease of thyroid gland (CMS/HCC) Unspecified disorder of thyroid Obesity (BMI 30-39.9) Posterior left knee pain Thyroid nodule (CMS/HCC)- Primary Nontoxic uninodular goiter 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 Coronary artery disease involving 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 (CMS/HCC) Pre-diabetes Other abnormal glucose Obesity (BMI 30-39.9) Diarrhea, unspecified type Encounter for subsequent annual wellness visit (AWV) in Medicare patient- Primary Tobacco dependence Tobacco use disorder Pre-diabetes Other abnormal glucose Obesity (BMI 30-39.9) Age-related osteoporosis without current pathological fracture (CMS/HCC) Coronary artery disease involving 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 (CMS/HCC) Essential hypertension (CMS/HCC) Unspecified essential hypertension Multiple lung nodules on CT- Primary documented in this encounter [facility]Evaluation note* Diagnosis Ruptured ear [...] peripheral vascular disease Coronary artery disease involving 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 (CMS/HCC)- Primary Calcification of aortic valve Essential hypertension (CMS/HCC) Unspecified essential hypertension Thyroid nodule (CMS/HCC) Nontoxic uninodular goiter Obstructive sleep apnea syndrome- Primary Obstructive sleep apnea (adult) (pediatric) PAH (pulmonary artery hypertension) (CMS/HCC) Other chronic pulmonary heart diseases Coronary artery disease involving 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 (CMS/HCC)- Primary Elevated glucose level Essential hypertension (CMS/HCC) Unspecified essential hypertension Encounter for screening mammogram for malignant neoplasm of breast Other chest pain Disease of thyroid gland (CMS/HCC) Unspecified disorder of thyroid Obesity (BMI 30-39.9) Posterior left knee pain Thyroid nodule (CMS/HCC)- Primary Nontoxic uninodular goiter 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 Coronary artery disease involving 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 (CMS/HCC) Pre-diabetes Other abnormal glucose Obesity (BMI 30-39.9) Diarrhea, unspecified type Encounter for subsequent annual wellness visit (AWV) in Medicare patient- Primary Tobacco dependence Tobacco use disorder Pre-diabetes Other abnormal glucose Obesity (BMI 30-39.9) Age-related osteoporosis without current pathological fracture (CMS/HCC) Coronary artery disease involving 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 (CMS/HCC) Essential hypertension (CMS/HCC) Unspecified essential hypertension Hyperthyroidism (CMS/HCC)- Primary Thyrotoxicosis without mention of goiter or other cause, without mention of thyrotoxic crisis or storm Thyroid nodule (CMS/HCC) Nontoxic uninodular goiter documented in this encounter [facility]* Diagnosis Ruptured ear drum, [...] peripheral vascular disease Coronary artery disease involving 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 (CMS/HCC)- Primary Calcification of aortic valve Essential hypertension (CMS/HCC) Unspecified essential hypertension Thyroid nodule (CMS/HCC) Nontoxic uninodular goiter Obstructive sleep apnea syndrome- Primary Obstructive sleep apnea (adult) (pediatric) PAH (pulmonary artery hypertension) (CMS/HCC) Other chronic pulmonary heart diseases Coronary artery disease involving 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 (CMS/HCC)- Primary Elevated glucose level Essential hypertension (CMS/HCC) Unspecified essential hypertension Encounter for screening mammogram for malignant neoplasm of breast Other chest pain Disease of thyroid gland (CMS/HCC) Unspecified disorder of thyroid Obesity (BMI 30-39.9) Posterior left knee pain Thyroid nodule (CMS/HCC)- Primary Nontoxic uninodular goiter 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 Coronary artery disease involving 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 (CMS/HCC) Pre-diabetes Other abnormal glucose Obesity (BMI 30-39.9) Diarrhea, unspecified type Encounter for subsequent annual wellness visit (AWV) in [employer] patient- Primary Tobacco dependence Tobacco use disorder Pre-diabetes Other abnormal glucose Obesity (BMI 30-39.9) Age-related osteoporosis without current pathological fracture (CMS/HCC) Coronary artery disease involving 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 (CMS/HCC) Essential hypertension (CMS/HCC) Unspecified essential hypertension Multiple lung nodules on CT- Primary documented in this encounter [facility] HealthcareEvaluation note* Diagnosis 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 Other vitamin B12 deficiency anemia Chronic ITP (idiopathic thrombocytopenia) (HCC) Immune thrombocytopenic purpura Thrombocytopenia (HCC) Thrombocytopenia, unspecified Hyperglycemia Other abnormal glucose Obstructive sleep apnea syndrome Obstructive sleep apnea (adult) (pediatric) [facility] Chronic ITP (idiopathic thrombocytopenia) (HCC)- Primary Immune thrombocytopenic purpura Stage 3b chronic kidney disease (HCC) Secondary hypertension Other secondary hypertension, unspecified [facility] Obstructive sleep apnea syndrome- Primary Obstructive sleep apnea (adult) (pediatric) PAH (pulmonary artery hypertension) (CMS/HCC) Other chronic pulmonary heart diseases documented in this encounter [facility] HealthcareEvaluation note* Diagnosis Cholesteatoma of left ear- Primary Encounter for postoperative care documented in this encounter [facility] Work Phone: Evaluation note* Diagnosis Thyroid nodule (CMS/HCC)- Primary Nontoxic uninodular goiter Calcification of aortic valve Coronary artery disease involving 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 (CMS/HCC) documented in this encounter [facility]* Diagnosis Coronary artery disease involving 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 (CMS/HCC)- Primary Calcification of aortic valve Essential hypertension (CMS/HCC) Unspecified essential hypertension Thyroid nodule (CMS/HCC) Nontoxic uninodular goiter documented in this encounter [facility] note* Diagnosis Coronary artery disease involving 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 (CMS/HCC) documented in this encounter [facility]* Diagnosis Coronary artery disease involving 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 (CMS/HCC)- Primary Elevated glucose level Essential hypertension (CMS/HCC) Unspecified essential hypertension Encounter for screening mammogram for malignant neoplasm of breast Other chest pain Disease of thyroid gland (CMS/HCC) Unspecified disorder of thyroid Obesity (BMI 30-39.9) Posterior left knee pain documented in this encounter [facility]* Diagnosis Disease of thyroid gland (CMS/HCC)- Primary Unspecified disorder of thyroid documented in this encounter [facility]* Diagnosis 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 Other vitamin B12 deficiency anemia Thrombocytopenia (HCC) Thrombocytopenia, unspecified Abnormal weight loss Loss of weight Chronic ITP (idiopathic thrombocytopenia) (HCC) Immune thrombocytopenic purpura [facility] Diagnosis 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 Other vitamin B12 deficiency anemia Chronic ITP (idiopathic thrombocytopenia) (HCC) Immune thrombocytopenic purpura [facility] Hypertension, unspecified type [facility] Diagnosis Ruptured ear drum, left- Primary [...] peripheral vascular disease Coronary artery disease involving 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 (CMS/HCC)- Primary Calcification of aortic valve Essential hypertension (CMS/HCC) Unspecified essential hypertension Thyroid nodule (CMS/HCC) Nontoxic uninodular goiter Obstructive sleep apnea syndrome- Primary Obstructive sleep apnea (adult) (pediatric) PAH (pulmonary artery hypertension) (CMS/HCC) Other chronic pulmonary heart diseases Coronary artery disease involving 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 (CMS/HCC)- Primary Elevated glucose level Essential hypertension (CMS/HCC) Unspecified essential hypertension Encounter for screening mammogram for malignant neoplasm of breast Other chest pain Disease of thyroid gland (CMS/HCC) Unspecified disorder of thyroid Obesity (BMI 30-39.9) Posterior left knee pain Thyroid nodule (CMS/HCC)- Primary Nontoxic uninodular goiter 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 Coronary artery disease involving 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 (CMS/HCC) Pre-diabetes Other abnormal glucose Obesity (BMI 30-39.9) Diarrhea, unspecified type Encounter for subsequent annual wellness visit (AWV) in Medicare patient- Primary Tobacco dependence Tobacco use disorder Pre-diabetes Other abnormal glucose Obesity (BMI 30-39.9) Age-related osteoporosis without current pathological fracture (CMS/HCC) Coronary artery disease involving 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 (CMS/HCC) Essential hypertension (CMS/HCC) Unspecified essential hypertension Essential hypertension (CMS/HCC)- Primary Unspecified essential hypertension Systemic lupus erythematosus, unspecified (CMS/HCC) 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 Chronic kidney disease, stage 3a (HCC) (CMS/HCC) 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 Secondary pulmonary arterial hypertension (CMS/HCC) Coronary artery disease involving 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 (CMS/HCC) PAH (pulmonary artery hypertension) (CMS/HCC) Other chronic pulmonary heart diseases Obesity (BMI 30-39.9) Pre-diabetes Other abnormal glucose Tobacco dependence Tobacco use disorder Multiple lung nodules on CT Family history of cancer Family history of unspecified malignant neoplasm documented in this encounter [facility]* Diagnosis Onset Date Resolution Status Admit Date Anemia of renal disease acuteFebruary 2024 12:51pmChronic ITP (idiopathic thrombocytopenia)acute August 21, 2024 12:51pmCKD (chronic kidney disease) stage 3, GFR 30-59 ml/minacuteFebruary 2024 12:51pmComplex renal cystacuteFebruary 2024 12:51pmHypertensive chronic kidney disease with stage 1 through stage 4 chronic kiacuteFebruary 2024 12:51pmHyperuricemiaacuteFebruary 2024 12:51pm LupusacuteFebruary 2024 12:51pmOSA (obstructive sleep apnea)acuteFebruary 2024 12:51pmVitamin D deficiencyacuteFebruary 2024 12:51pm [facility] Work Phone: Evaluation note* Diagnosis 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 Other vitamin B12 deficiency anemia Thrombocytopenia (HCC) Thrombocytopenia, unspecified Abnormal weight loss Loss of weight Chronic ITP (idiopathic thrombocytopenia) (HCC) Immune thrombocytopenic purpura [facility] Diagnosis 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 Other vitamin B12 deficiency anemia Thrombocytopenia (HCC) Thrombocytopenia, unspecified Chronic ITP (idiopathic thrombocytopenia) (HCC) Immune thrombocytopenic purpura [facility] Diagnosis Ruptured ear drum, left- Primary [...] peripheral vascular disease Coronary artery disease involving 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 (CMS/HCC)- Primary Calcification of aortic valve Essential hypertension (CMS/HCC) Unspecified essential hypertension Thyroid nodule (CMS/HCC) Nontoxic uninodular goiter Obstructive sleep apnea syndrome- Primary Obstructive sleep apnea (adult) (pediatric) PAH (pulmonary artery hypertension) (CMS/HCC) Other chronic pulmonary heart diseases Coronary artery disease involving 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 (CMS/HCC)- Primary Elevated glucose level Essential hypertension (CMS/HCC) Unspecified essential hypertension Encounter for screening mammogram for malignant neoplasm of breast Other chest pain Disease of thyroid gland (CMS/HCC) Unspecified disorder of thyroid Obesity (BMI 30-39.9) Posterior left knee pain Thyroid nodule (CMS/HCC)- Primary Nontoxic uninodular goiter 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 Coronary artery disease involving 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 (CMS/HCC) Pre-diabetes Other abnormal glucose Obesity (BMI 30-39.9) Diarrhea, unspecified type Encounter for subsequent annual wellness visit (AWV) in [employer] patient- Primary Tobacco dependence Tobacco use disorder Pre-diabetes Other abnormal glucose Obesity (BMI 30-39.9) Age-related osteoporosis without current pathological fracture (CMS/HCC) Coronary artery disease involving 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 (CMS/HCC) Essential hypertension (CMS/HCC) Unspecified essential hypertension Essential hypertension (CMS/HCC)- Primary Unspecified essential hypertension Systemic lupus erythematosus, unspecified 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 Chronic kidney disease, stage 3a (HCC) (CMS/HCC) 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 Secondary pulmonary arterial hypertension (CMS/HCC) Coronary artery disease involving 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 (CMS/HCC) PAH (pulmonary artery hypertension) (CMS/HCC) Other chronic pulmonary heart diseases Obesity (BMI 30-39.9) Pre-diabetes Other abnormal glucose Tobacco dependence Tobacco use disorder Multiple lung nodules on CT Family history of cancer Family history of unspecified malignant neoplasm Coronary artery disease involving 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 (CMS/HCC) documented in this encounter [facility]* Diagnosis 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 Other vitamin B12 deficiency anemia Thrombocytopenia Thrombocytopenia, unspecified [facility] Diagnosis 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 Other vitamin B12 deficiency anemia Thrombocytopenia Thrombocytopenia, unspecified Abnormal weight loss Loss of weight Chronic ITP (idiopathic thrombocytopenia) (HCC) Immune thrombocytopenic purpura [facility] Diagnosis 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 Other vitamin B12 deficiency anemia Thrombocytopenia Thrombocytopenia, unspecified Abnormal weight loss Loss of weight Chronic ITP (idiopathic thrombocytopenia) (HCC) Immune thrombocytopenic purpura [facility] Diagnosis Chronic ITP (idiopathic thrombocytopenia) (HCC)- Primary Immune thrombocytopenic purpura Stage 3b chronic kidney disease (HCC) 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) Megaloblastic anemia due to vitamin B12 deficiency Other vitamin B12 deficiency anemia Systemic lupus erythematosus, unspecified SLE type, unspecified organ involvement status (HCC) [facility] Diagnosis Cholesteatoma of left ear- Primary 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 Preoperative clearance Unspecified pre-operative examination Thrombocytopenia Unspecified thrombocytopenia 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- Primary documented in this encounter [facility] Work Phone: Evaluation note* Diagnosis 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)- Primary [facility] Diagnosis 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)- Primary Megaloblastic anemia due to vitamin B12 deficiency Other vitamin B12 deficiency anemia Abnormal weight loss Loss of weight Other systemic lupus erythematosus with other organ involvement (HCC) Thrombocytopenia Thrombocytopenia, unspecified Chronic ITP (idiopathic thrombocytopenia) (HCC) Immune thrombocytopenic purpura [facility] Diagnosis Ruptured ear drum, left- Primary [...] unspecified (HCC) Chronic kidney disease, stage 3b ([facility]-HCC) Claudication of both lower extremities Obesity (BMI 30-39.9) Tobacco dependence Tobacco use disorder PAD (peripheral artery disease) Unspecified peripheral vascular disease Coronary artery disease involving 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- Primary Calcification of aortic valve Essential hypertension Unspecified essential hypertension Thyroid nodule Nontoxic uninodular goiter Obstructive sleep apnea syndrome- Primary Obstructive sleep apnea (adult) (pediatric) PAH (pulmonary artery hypertension) (HCC) Other chronic pulmonary heart diseases Coronary artery disease involving 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- Primary Elevated glucose level Essential hypertension Unspecified essential hypertension Encounter for screening mammogram for malignant neoplasm of breast Other chest pain Disease of thyroid gland Unspecified disorder of thyroid Obesity (BMI 30-39.9) Posterior left knee pain Thyroid nodule- Primary Nontoxic uninodular goiter 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 Coronary artery disease involving 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 Pre-diabetes Other abnormal glucose Obesity (BMI 30-39.9) Diarrhea, unspecified type Encounter for subsequent annual wellness visit (AWV) in [employer] patient- Primary Tobacco dependence Tobacco use disorder Pre-diabetes Other abnormal glucose Obesity (BMI 30-39.9) Age-related osteoporosis without current pathological fracture Coronary artery disease involving 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 Essential hypertension Unspecified essential hypertension Essential hypertension- Primary Unspecified essential hypertension Systemic lupus erythematosus, unspecified (HCC) 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 Chronic kidney disease, stage 3a (CMS-HCC) 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 Secondary pulmonary arterial hypertension (HCC) Coronary artery disease involving 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 PAH (pulmonary artery hypertension) (HCC) Other chronic pulmonary heart diseases Obesity (BMI 30-39.9) Pre-diabetes Other abnormal glucose Tobacco dependence Tobacco use disorder Multiple lung nodules on CT Family history of cancer Family history of unspecified malignant neoplasm Diarrhea, unspecified type- Primary Chronic kidney disease, stage 3b (CMS-HCC) Coronary artery disease involving 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 Essential hypertension Unspecified [...] peripheral vascular disease Coronary artery disease involving 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- Primary Calcification of aortic valve Essential hypertension Unspecified essential hypertension Thyroid nodule Nontoxic uninodular goiter Obstructive sleep apnea syndrome- Primary Obstructive sleep apnea (adult) (pediatric) PAH (pulmonary artery hypertension) (HCC) Other chronic pulmonary heart diseases Coronary artery disease involving 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- Primary Elevated glucose level Essential hypertension Unspecified essential hypertension Encounter for screening mammogram for malignant neoplasm of breast Other chest pain Disease of thyroid gland Unspecified disorder of thyroid Obesity (BMI 30-39.9) Posterior left knee pain Thyroid nodule- Primary Nontoxic uninodular goiter 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 Coronary artery disease involving 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 Pre-diabetes Other abnormal glucose Obesity (BMI 30-39.9) Diarrhea, unspecified type Encounter for subsequent annual wellness visit (AWV) in [employer] patient- Primary Tobacco dependence Tobacco use disorder Pre-diabetes Other abnormal glucose Obesity (BMI 30-39.9) Age-related osteoporosis without current pathological fracture Coronary artery disease involving 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 Essential hypertension Unspecified essential hypertension Essential hypertension- Primary Unspecified essential hypertension Systemic lupus erythematosus, unspecified (HCC) 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 Chronic kidney disease, stage 3a (CMS-HCC) 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 Secondary pulmonary arterial hypertension (HCC) Coronary artery disease involving 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 PAH (pulmonary artery hypertension) (HCC) Other chronic pulmonary heart diseases Obesity (BMI 30-39.9) Pre-diabetes Other abnormal glucose Tobacco dependence Tobacco use disorder Multiple lung nodules on CT Family history of cancer Family history of unspecified malignant neoplasm Diarrhea, unspecified type- Primary Chronic kidney disease, stage 3b (CMS-HCC) Coronary artery disease involving 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 Essential hypertension Unspecified essential hypertension Obesity (BMI 30-39.9) Pre-diabetes Other abnormal glucose Chronic ITP (idiopathic thrombocytopenia) (HCC) Tobacco dependence Tobacco use disorder Thyroid nodule Nontoxic uninodular goiter Coronary artery disease involving 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 documented in this encounter [facility]* Diagnosis Ruptured ear drum, [...] peripheral vascular disease Coronary artery disease involving 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- Primary Calcification of aortic valve Essential hypertension Unspecified essential hypertension Thyroid nodule Nontoxic uninodular goiter Obstructive sleep apnea syndrome- Primary Obstructive sleep apnea (adult) (pediatric) PAH (pulmonary artery hypertension) (HCC) Other chronic pulmonary heart diseases Coronary artery disease involving 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- Primary Elevated glucose level Essential hypertension Unspecified essential hypertension Encounter for screening mammogram for malignant neoplasm of breast Other chest pain Disease of thyroid gland Unspecified disorder of thyroid Obesity (BMI 30-39.9) Posterior left knee pain Thyroid nodule- Primary Nontoxic uninodular goiter 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 Coronary artery disease involving 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 Pre-diabetes Other abnormal glucose Obesity (BMI 30-39.9) Diarrhea, unspecified type Encounter for subsequent annual wellness visit (AWV) in [employer] patient- Primary Tobacco dependence Tobacco use disorder Pre-diabetes Other abnormal glucose Obesity (BMI 30-39.9) Age-related osteoporosis without current pathological fracture Coronary artery disease involving 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 Essential hypertension Unspecified essential hypertension Essential hypertension- Primary Unspecified essential hypertension Systemic lupus erythematosus, unspecified (HCC) 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 Chronic kidney disease, stage 3a (CMS-HCC) 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 Secondary pulmonary arterial hypertension (HCC) Coronary artery disease involving 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 PAH (pulmonary artery hypertension) (HCC) Other chronic pulmonary heart diseases Obesity (BMI 30-39.9) Pre-diabetes Other abnormal glucose Tobacco dependence Tobacco use disorder Multiple lung nodules on CT Family history of cancer Family history of unspecified malignant neoplasm Diarrhea, unspecified type- Primary Chronic kidney disease, stage 3b (CMS-HCC) Coronary artery disease involving 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 Essential hypertension Unspecified essential hypertension Obesity (BMI 30-39.9) Pre-diabetes Other abnormal glucose Chronic ITP (idiopathic thrombocytopenia) (HCC) Tobacco dependence Tobacco use disorder Thyroid nodule Nontoxic uninodular goiter Age-related osteoporosis without current pathological fracture- Primary [facility] Essential hypertension Unspecified essential hypertension Chronic ITP (idiopathic thrombocytopenia) (HCC) Immune thrombocytopenic purpura Obstructive sleep apnea syndrome Obstructive sleep apnea (adult) (pediatric) [facility] 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)- Primary documented in [facility] Malaise and fatigue- Primary Other malaise and fatigue 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) Megaloblastic anemia due to vitamin B12 deficiency Other vitamin B12 deficiency anemia Thrombocytopenia Thrombocytopenia, unspecified Chronic ITP (idiopathic thrombocytopenia) (HCC) Immune thrombocytopenic purpura [facility] Diagnosis Ruptured ear drum, left- [...] peripheral vascular disease Coronary artery disease involving 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- Primary Calcification of aortic valve Essential hypertension Unspecified essential hypertension Thyroid nodule Nontoxic uninodular goiter Obstructive sleep apnea syndrome- Primary Obstructive sleep apnea (adult) (pediatric) PAH (pulmonary artery hypertension) (HCC) Other chronic pulmonary heart diseases Coronary artery disease involving 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- Primary Elevated glucose level Essential hypertension Unspecified essential hypertension Encounter for screening mammogram for malignant neoplasm of breast Other chest pain Disease of thyroid gland Unspecified disorder of thyroid Obesity (BMI 30-39.9) Posterior left knee pain Thyroid nodule- Primary Nontoxic uninodular goiter 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 Coronary artery disease involving 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 Pre-diabetes Other abnormal glucose Obesity (BMI 30-39.9) Diarrhea, unspecified type Encounter for subsequent annual wellness visit (AWV) in Medicare patient- Primary Tobacco dependence Tobacco use disorder Pre-diabetes Other abnormal glucose Obesity (BMI 30-39.9) Age-related osteoporosis without current pathological fracture Coronary artery disease involving 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 Essential hypertension Unspecified essential hypertension Essential hypertension- Primary Unspecified essential hypertension Systemic lupus erythematosus, unspecified (HCC) 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 Chronic kidney disease, stage 3a (CMS-HCC) 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 Secondary pulmonary arterial hypertension (HCC) Coronary artery disease involving 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 PAH (pulmonary artery hypertension) (HCC) Other chronic pulmonary heart diseases Obesity (BMI 30-39.9) Pre-diabetes Other abnormal glucose Tobacco dependence Tobacco use disorder Multiple lung nodules on CT Family history of cancer Family history of unspecified malignant neoplasm Diarrhea, unspecified type- Primary Chronic kidney disease, stage 3b (CMS-HCC) Coronary artery disease involving 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 Essential hypertension Unspecified essential hypertension Obesity (BMI 30-39.9) Pre-diabetes Other abnormal glucose Chronic ITP (idiopathic thrombocytopenia) (HCC) Tobacco dependence Tobacco use disorder Thyroid nodule Nontoxic uninodular goiter DARYL (acute kidney injury)- Primary Essential hypertension Unspecified essential hypertension Chronic kidney disease, stage 3b ([facility]) Diarrhea, unspecified type Tobacco dependence Tobacco use disorder documented in this encounter [facility]* Diagnosis Ruptured ear drum, [...] both lower extremities Chronic ITP (idiopathic thrombocytopenia) ([facility]) Perforation of left tympanic membrane Hyperkalemia with normal acid-base balance Lumbar back pain- Primary Lumbago Systemic lupus erythematosus, unspecified (HCC) Chronic kidney disease, stage 3b ([facility]) Claudication of both lower extremities Obesity (BMI 30-39.9) Tobacco dependence Tobacco use disorder PAD (peripheral artery disease) Unspecified peripheral vascular disease Coronary artery disease involving 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- Primary Calcification of aortic valve Essential hypertension Unspecified essential hypertension Thyroid nodule Nontoxic uninodular goiter Obstructive sleep apnea syndrome- Primary Obstructive sleep apnea (adult) (pediatric) PAH (pulmonary artery hypertension) (HCC) Other chronic pulmonary heart diseases Coronary artery disease involving 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- Primary Elevated glucose level Essential hypertension Unspecified essential hypertension Encounter for screening mammogram for malignant neoplasm of breast Other chest pain Disease of thyroid gland Unspecified disorder of thyroid Obesity (BMI 30-39.9) Posterior left knee pain Thyroid nodule- Primary Nontoxic uninodular goiter 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 Coronary artery disease involving 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 Pre-diabetes Other abnormal glucose Obesity (BMI 30-39.9) Diarrhea, unspecified type Encounter for subsequent annual wellness visit (AWV) in Medicare patient- Primary Tobacco dependence Tobacco use disorder Pre-diabetes Other abnormal glucose Obesity (BMI 30-39.9) Age-related osteoporosis without current pathological fracture Coronary artery disease involving 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 Essential hypertension Unspecified essential hypertension Essential hypertension- Primary Unspecified essential hypertension Systemic lupus erythematosus, unspecified (HCC) 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 Chronic kidney disease, stage 3a (CMS-HCC) 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 Secondary pulmonary arterial hypertension (HCC) Coronary artery disease involving 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 PAH (pulmonary artery hypertension) (HCC) Other chronic pulmonary heart diseases Obesity (BMI 30-39.9) Pre-diabetes Other abnormal glucose Tobacco dependence Tobacco use disorder Multiple lung nodules on CT Family history of cancer Family history of unspecified malignant neoplasm Diarrhea, unspecified type- Primary Chronic kidney disease, stage 3b (CMS-HCC) Coronary artery disease involving 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 Essential hypertension Unspecified [...] spondylosis without myelopathy [facility] Diagnosis 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 Other vitamin B12 deficiency anemia Abnormal weight loss Loss of weight Other systemic lupus erythematosus with other organ involvement (HCC) Thrombocytopenia Thrombocytopenia, unspecified Chronic ITP (idiopathic thrombocytopenia) (HCC) Immune thrombocytopenic purpura 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) [facility] Ruptured ear drum, left- [...] peripheral vascular disease Coronary artery disease involving 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- Primary Calcification of aortic valve Essential hypertension Unspecified essential hypertension Thyroid nodule Nontoxic uninodular goiter Obstructive sleep apnea syndrome- Primary Obstructive sleep apnea (adult) (pediatric) PAH (pulmonary artery hypertension) (HCC) Other chronic pulmonary heart diseases Coronary artery disease involving 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- Primary Elevated glucose level Essential hypertension Unspecified essential hypertension Encounter for screening mammogram for malignant neoplasm of breast Other chest pain Disease of thyroid gland Unspecified disorder of thyroid Obesity (BMI 30-39.9) Posterior left knee pain Thyroid nodule- Primary Nontoxic uninodular goiter 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 Coronary artery disease involving 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 Pre-diabetes Other abnormal glucose Obesity (BMI 30-39.9) Diarrhea, unspecified type Encounter for subsequent annual wellness visit (AWV) in Medicare patient- Primary Tobacco dependence Tobacco use disorder Pre-diabetes Other abnormal glucose Obesity (BMI 30-39.9) Age-related osteoporosis without current pathological fracture Coronary artery disease involving 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 Essential hypertension Unspecified essential hypertension Essential hypertension- Primary Unspecified essential hypertension Systemic lupus erythematosus, unspecified (HCC) 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 Chronic kidney disease, stage 3a (CMS-HCC) 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 Secondary pulmonary arterial hypertension (HCC) Coronary artery disease involving 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 PAH (pulmonary artery hypertension) (HCC) Other chronic pulmonary heart diseases Obesity (BMI 30-39.9) Pre-diabetes Other abnormal glucose Tobacco dependence Tobacco use disorder Multiple lung nodules on CT Family history of cancer Family history of unspecified malignant neoplasm Diarrhea, unspecified type- Primary Chronic kidney disease, stage 3b (CMS-HCC) Coronary artery disease involving 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 Essential hypertension Unspecified essential hypertension Obesity (BMI 30-39.9) Pre-diabetes Other abnormal glucose Chronic ITP (idiopathic thrombocytopenia) (HCC) Tobacco dependence Tobacco use disorder Thyroid nodule Nontoxic uninodular goiter DARYL (acute kidney injury)- Primary Essential hypertension Unspecified essential hypertension Chronic kidney disease, stage 3b ([facility]) Diarrhea, unspecified type Tobacco dependence Tobacco use disorder Weakness of both legs- Primary Muscle weakness (generalized) Chronic kidney disease, stage 3b ([facility]) Obesity (BMI 30-39.9) Tobacco dependence Tobacco use disorder Lumbar spondylosis Lumbosacral spondylosis without myelopathy Abdominal aortic aneurysm (AAA) without rupture, unspecified part- Primary [facility] Diagnosis Onset Date Resolution Status Admit Date Anemia of renal disease acuteJuly 2024 1:48pmChronic ITP (idiopathic thrombocytopenia)acuteJuly 2024 1:48pmCKD (chronic kidney disease) stage 3, GFR 30-59 ml/minacuteJuly 2024 1:48pmComplex renal cystacuteJuly 2024 1:48pmHypertensive chronic kidney disease with stage 1 through stage 4 chronic kiacuteJuly 2024 1:48pmHyperuricemiaacuteJuly 2024 1:48pmLupusacuteJuly 2024 1:48pmOSA (obstructive sleep apnea)acuteJuly 2024 1:48pmVitamin D deficiencyacuteJuly 2024 1:48pm [facility] Work Phone: Evaluation note* Diagnosis 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)- Primary [facility] Diagnosis 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)- Primary [facility] Diagnosis 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- Primary 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 Cholesteatoma of left ear documented in this encounter [facility] Work Phone: Evaluation note* Diagnosis Megaloblastic [...] rupture, unspecified part [facility] Diagnosis 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 Other vitamin B12 deficiency anemia Abnormal weight loss Loss of weight Other systemic lupus erythematosus with other organ involvement (HCC) Thrombocytopenia Thrombocytopenia, unspecified Chronic ITP (idiopathic thrombocytopenia) (HCC) Immune thrombocytopenic purpura 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) [facility]* Diagnosis Ruptured ear drum, left- Primary [...] unspecified (HCC) Chronic kidney disease, stage 3b ([facility]) Claudication of both lower extremities Obesity (BMI 30-39.9) Tobacco dependence Tobacco use disorder PAD (peripheral artery disease) Unspecified peripheral vascular disease Coronary artery disease involving 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- Primary Calcification of aortic valve Essential hypertension Unspecified essential hypertension Thyroid nodule Nontoxic uninodular goiter Obstructive sleep apnea syndrome- Primary Obstructive sleep apnea (adult) (pediatric) PAH (pulmonary artery hypertension) (HCC) Other chronic pulmonary heart diseases Coronary artery disease involving 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- Primary Elevated glucose level Essential hypertension Unspecified essential hypertension Encounter for screening mammogram for malignant neoplasm of breast Other chest pain Disease of thyroid gland Unspecified disorder of thyroid Obesity (BMI 30-39.9) Posterior left knee pain Thyroid nodule- Primary Nontoxic uninodular goiter 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 Coronary artery disease involving 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 Pre-diabetes Other abnormal glucose Obesity (BMI 30-39.9) Diarrhea, unspecified type Encounter for subsequent annual wellness visit (AWV) in Medicare patient- Primary Tobacco dependence Tobacco use disorder Pre-diabetes Other abnormal glucose Obesity (BMI 30-39.9) Age-related osteoporosis without current pathological fracture Coronary artery disease involving 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 Essential hypertension Unspecified essential hypertension Essential hypertension- Primary Unspecified essential hypertension Systemic lupus erythematosus, unspecified (HCC) 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 Chronic kidney disease, stage 3a (CMS-HCC) 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 Secondary pulmonary arterial hypertension (HCC) Coronary artery disease involving 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 PAH (pulmonary artery hypertension) (HCC) Other chronic pulmonary heart diseases Obesity (BMI 30-39.9) Pre-diabetes Other abnormal glucose Tobacco dependence Tobacco use disorder Multiple lung nodules on CT Family history of cancer Family history of unspecified malignant neoplasm Diarrhea, unspecified type- Primary Chronic kidney disease, stage 3b (CMS-HCC) Coronary artery disease involving 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 Essential hypertension Unspecified [...] Nontoxic uninodular goiter documented in [facility] encounter [facility]* Diagnosis Ruptured ear drum, [...] peripheral vascular disease Coronary artery disease involving 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- Primary Calcification of aortic valve Essential hypertension Unspecified essential hypertension Thyroid nodule Nontoxic uninodular goiter Obstructive sleep apnea syndrome- Primary Obstructive sleep apnea (adult) (pediatric) PAH (pulmonary artery hypertension) (HCC) Other chronic pulmonary heart diseases Coronary artery disease involving 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- Primary Elevated glucose level Essential hypertension Unspecified essential hypertension Encounter for screening mammogram for malignant neoplasm of breast Other chest pain Disease of thyroid gland Unspecified disorder of thyroid Obesity (BMI 30-39.9) Posterior left knee pain Thyroid nodule- Primary Nontoxic uninodular goiter 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 Coronary artery disease involving 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 Pre-diabetes Other abnormal glucose Obesity (BMI 30-39.9) Diarrhea, unspecified type Encounter for subsequent annual wellness visit (AWV) in Medicare patient- Primary Tobacco dependence Tobacco use disorder Pre-diabetes Other abnormal glucose Obesity (BMI 30-39.9) Age-related osteoporosis without current pathological fracture Coronary artery disease involving 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 Essential hypertension Unspecified essential hypertension Essential hypertension- Primary Unspecified essential hypertension Systemic lupus erythematosus, unspecified (HCC) 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 Chronic kidney disease, stage 3a (CMS-HCC) 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 Secondary pulmonary arterial hypertension (HCC) Coronary artery disease involving 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 PAH (pulmonary artery hypertension) (HCC) Other chronic pulmonary heart diseases Obesity (BMI 30-39.9) Pre-diabetes Other abnormal glucose Tobacco dependence Tobacco use disorder Multiple lung nodules on CT Family history of cancer Family history of unspecified malignant neoplasm Diarrhea, unspecified type- Primary Chronic kidney disease, stage 3b (CMS-HCC) Coronary artery disease involving 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 Essential hypertension Unspecified [...] weakness (generalized) Chronic kidney disease, stage 3b ([facility]) Obesity (BMI 30-39.9) Tobacco dependence Tobacco use disorder Lumbar spondylosis Lumbosacral spondylosis without myelopathy Acute glossitis- Primary documented in [facility] encounter [facility]* Diagnosis Ruptured ear drum, [...] pain- Primary Lumbago Systemic lupus erythematosus, unspecified ([facility]) Chronic kidney disease, stage 3b ([facility]) Claudication of both lower extremities Obesity (BMI 30-39.9) Tobacco dependence Tobacco use disorder PAD (peripheral artery disease) Unspecified peripheral vascular disease Coronary artery disease involving 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- Primary Calcification of aortic valve Essential hypertension Unspecified essential hypertension Thyroid nodule Nontoxic uninodular goiter Obstructive sleep apnea syndrome- Primary Obstructive sleep apnea (adult) (pediatric) PAH (pulmonary artery hypertension) ([facility]) Other chronic pulmonary heart diseases Coronary artery disease involving 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- Primary Elevated glucose level Essential hypertension Unspecified essential hypertension Encounter for screening mammogram for malignant neoplasm of breast Other chest pain Disease of thyroid gland Unspecified disorder of thyroid Obesity (BMI 30-39.9) Posterior left knee pain Thyroid nodule- Primary Nontoxic uninodular goiter 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 Coronary artery disease involving 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 Pre-diabetes Other abnormal glucose Obesity (BMI 30-39.9) Diarrhea, unspecified type Encounter for subsequent annual wellness visit (AWV) in Medicare patient- Primary Tobacco dependence Tobacco use disorder Pre-diabetes Other abnormal glucose Obesity (BMI 30-39.9) Age-related osteoporosis without current pathological fracture Coronary artery disease involving 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 Essential hypertension Unspecified essential hypertension Essential hypertension- Primary Unspecified essential hypertension Systemic lupus erythematosus, unspecified (HCC) 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 Chronic kidney disease, stage 3a (CMS-HCC) 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 Secondary pulmonary arterial hypertension (HCC) Coronary artery disease involving 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 PAH (pulmonary artery hypertension) (HCC) Other chronic pulmonary heart diseases Obesity (BMI 30-39.9) Pre-diabetes Other abnormal glucose Tobacco dependence Tobacco use disorder Multiple lung nodules on CT Family history of cancer Family history of unspecified malignant neoplasm Diarrhea, unspecified type- Primary Chronic kidney disease, stage 3b (CMS-HCC) Coronary artery disease involving 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 Essential hypertension Unspecified [...] Lumbosacral spondylosis without myelopathy Acute glossitis- Primary Thyroid nodule Nontoxic uninodular goiter [facility] - Reported* Type Description Date Medical History PULMONARY NODULES Medical HistoryLUPUSMedical HistoryTHROMBOCYTOPENIAMedical HistoryHYPERTESNION Surgical HistoryAPPENDECTOMYSurgical HistoryBACK SURGERYSurgical HistoryCYST REMOVAL FROM LEFT BREASTSurgical HistoryGALL BLADDER REMOVEDSurgical History PARTIAL HYSTERECTOMYSurgical HistoryOVARY REMOVALSurgical HistoryLEFT LEG FRACTURE WITH PIN AND PLATE PLACEMENTHospitalization HistorySEE ABOVE [place] Other History general Narrative - Reported* Type Description Date Medical History PULMONARY NODULES Medical HistoryLUPUSMedical HistoryTHROMBOCYTOPENIAMedical HistoryHYPERTESNION Medical HistoryOSTEOPEROSISSurgical HistoryAPPENDECTOMYSurgical HistoryBACK SURGERYSurgical HistoryCYST REMOVAL FROM LEFT BREASTSurgical HistoryGALL BLADDER REMOVEDSurgical HistoryPARTIAL HYSTERECTOMYSurgical HistoryOVARY REMOVAL Surgical HistoryLEFT LEG FRACTURE WITH PIN AND PLATE PLACEMENTHospitalization HistorySEE ABOVE [place] Other Hospital Discharge instructionsAmbulatory Orders* Referral to Vascular Surgery Time Frame: 04/24/25, Location: [facility] Work Phone: Reason for referral (narrative)* Consultation (Routine) - Pending ReviewSpecialtyDiagnoses / ProceduresReferred By Contact Referred To ContactOrthopaedic Surgery Diagnoses Posterior left knee pain Stephanie Dumont NP [address] [address] Jr. Herson Avalos, [address] [place] [address] Referral IDStatusReasonStart DateExpiration DateVisits RequestedVisits [id number] Review Specialty Services Required Scheduling Instructions Pt requests dr avalos * Imaging (Routine) - Pending ReviewSpecialtyDiagnoses / ProceduresReferred By ContactReferred To Contact Diagnoses Essential hypertension (CMS/HCC) Coronary artery disease involving 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 (CMS/HCC) Other chest pain Procedures STRESS NUCLEAR MEDICINE Stephanie Kohli NP [address] [place] [address] [facility] [address] [place] [address] Referral IDStatusReasonStart DateExpiration DateVisits RequestedVisits [id number] Review [facility] HealthcareReason for referral (narrative)No reason for referral information availableUniversity [facility]als [facility] Work Phone: [facility] Narrative* [place] Prior Authorization (Routine) - AuthorizedSpecialtyDiagnoses / ProceduresReferred By Contact Referred To Contact Diagnoses 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) Rinku Dupree MD [address] [place] [address] [place] [address] Phone: tel: fax: Rinku Dupree MD [address] [place] [address] [place] [address] Phone: tel: fax: Referral IDStatusReasonStart DateExpiration DateVisits RequestedVisits [id number]/28/[id number]/ [facility] for visit Narrative* Auth/CertSpecialtyDiagnoses / ProceduresReferred By ContactReferred To Contact Diagnoses 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 [H72.02] Procedures TX TYMPANOPLASTY W/O MASTOIDEC 1ST/REVJ PROSTH TORP TX GRAFT EAR CRTLG AUTOGENOUS NOSE/EAR Left Side Transcanal Tympanoplasty; Ossiculoplasty; Cartilage Graft Left Side Transcanal Tympanoplasty; Ossiculoplasty; [place] [address] [place] [address] Phone: tel: fax: [facility] OR [facility] [place] [address] fax: [place]erral [place]StatusReason[place] DateExpiration DateVisits RequestedVisits [id number] [facility] Work Phone: Summary Purpose Family History No Family History Records Found Relationship Condition Age at Onset Recorded Date/T solitario brother Hypertension Unknown Malignant neoplasmUnknownDiabetes mellitusUnknownMalignant neoplasm of kidney UnknowndaughterFamily history of mental disorderUnknownfatherMalignant neoplasm UnknownMalignant neoplasm of boneUnknownDeceasedUnknownfamily memberDeceased UnknownmotherHypertensionUnknownHeart diseaseUnknownsisterHeart diseaseUnknown History of strokeUnknownMalignant neoplasm of breastUnknownHypertensionUnknown Advance Directives No Advanced Directives Records Found Advance Directive Response Recorded Date/ Time Advance Directives No July 22, 2022 10:59am Advance Directive Response Recorded Date/ Time Advance Directives No June 11:57am Advance Directive Response Recorded Date/ Time Advance Directives No June 10:57am Date ActivatedDate InactivatedComments02/05/2025 10:10 AMQuestionAnswerComments Plan of Care:* Code Status Discussion Completed Decision Maker:* Patient Reason for Referral SpecialtyDiagnoses / ProceduresReferred By ContactReferred To ContactRadiology Diagnoses Calcification of aortic valve Coronary artery disease involving 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 (CMS/HCC) Procedures Echocardiogram 2D complete Stephanie Dumont, JORDI [address] [place] [address] [facility] [address] [place] [address] Referral IDStatusReasonStart DateExpiration DateVisits RequestedVisits [id number] Perform Procedure /[id number] / ProceduresReferred By ContactReferred To Contact Diagnoses Left leg pain Procedures NM bone 3 phase Blaise Alex, LISA [address] [place] [address] [facility] [address] [address] Referral IDStatusReasonStart DateExpiration DateVisits RequestedVisits [id number] [id number] / ProceduresReferred By ContactReferred To ContactRadiology Diagnoses Cholesteatoma of left ear Procedures CT internal auditory canals posterior [place] [address] [place] [address] [facility] DateExpiration DateVisits RequestedVisits [id number] Review Perform Procedure [id number] / ProceduresReferred By ContactReferred To ContactDermatology Diagnoses Skin lesion of right lower extremity Procedures CONSULT TO DERMATOLOGY Jayden Connelly, MIRIAM.[address] [place] [address] Ref[facility]Status[facility] DateExpiration DateVisits RequestedVisits [id number] Not Required PCP Requested Referral / Chief Complaint and Reason for Visit Chief [...] to excess calories March 13, 2025 9:58am Chief Complaint Admit Date hospital f/u January 27, 2025 1:48 pm ESTABLISHED PATIENT March 13, 2025 9:58am 6W April 24, 2025 1 0:28am Reason for Visit Admit Date Anemia of [...] 2025 9:58am Essential hypertension March 13 9:58am Left ankle sprain March 13, 2025 9:58am Obesity due to excess calories March 13, 2025 9:58am Right wrist sprain March 13, 2025 9:58am AAA (abdominal aortic aneurysm) without rupture April 24, 2025 10:28am Atherosclerosis of [place] coronary arter y of [place] heart April 24, 2025 10:28am Breast cancer screening by mammogram Oct alvarez 2024 10:28am Chronic ITP (idiopathic thrombocytopenia ) April 24, 2025 10:28am CKD (chronic kidney disease) stage 3, GF R 30-59 ml/min April 24, 2025 10:28am Essential hypertension April 24 10:28am Obesity due to excess calories April 092024 10:28am ADALBERTO (obstructive sleep apnea) April 242024 10:28am Chief Complaint Admit Date ESTABLISHED PATIENT March 13, 2025 9:58am 6W April 24, 2025 1 0:28am 6 month f/u April 30, 2025 1 :03pm Reason for Visit Admit Date AAA (abdominal aortic aneurysm) without rupture March 13, 2025 9:58am Chronic ITP (idiopathic thrombocytopenia ) March 13, 2025 9:58am CKD (chronic kidney disease) stage 3, GF R 30-59 ml/min March 13, 2025 9:58am Essential hypertension March 13 9:58am Left ankle sprain March 13, 2025 9:58am Obesity due to excess calories March 13, 2025 9:58am Right wrist sprain March 13, 2025 9:58am AAA (abdominal aortic aneurysm) without rupture April 24, 2025 10:28am Atherosclerosis of [place] coronary arter y of [place] heart April 24, 2025 10:28am Breast cancer screening by mammogram Oct alvarez 2024 10:28am Chronic ITP (idiopathic thrombocytopenia ) April 24, 2025 10:28am CKD (chronic kidney disease) stage 3, GF R 30-59 ml/min April 24, 2025 10:28am Essential hypertension April 24 10:28am Obesity due to excess calories April 092024 10:28am ADALBERTO (obstructive sleep apnea) April 242024 10:28am Anemia of renal disease April 30 1:03pm Chronic ITP (idiopathic thrombocytopenia ) April 30, 2025 1:03pm CKD (chronic kidney disease) stage 3, GF R 30-59 ml/min April 30, 2025 1:03pm Complex renal cyst April 30, 2025 1 :03pm Hypertensive chronic kidney disease with stage 1 through stage 4 chronic ki April 30, 2025 1:03pm Hyperuricemia April 30, 2025 1 :03pm Lupus April 30, 2025 1 :03pm ADALBERTO (obstructive sleep apnea) April 302024 1:03pm Secondary hyperparathyroidism April 302024 1:03pm Chief Complaint Admit Date ESTABLISHED PATIENT March 13, 2025 9:58am 6W April 24, 2025 1 0:28am 6 month f/u April 30, 2025 1 :03pm ref by Stephanie Driscoll for AAA (scanned) Oc tober 2024 9:48am Additional Source Comments INFORMATION SOURCE (unrecogn ized section and content) DATE CREATED AUTHOR 01/02/2018 [facility] DATE CREATED AUTHOR AUTHOR'S ORGANIZ ATION 05/02/2024 [facility] DATE CREATED AUTHOR AUTHOR'S ORGANIZ ATION 07/21/2024 [facility] DATE CREATED AUTHOR AUTHOR'S ORGANIZ ATION 11/28/2024 [facility] DATE CREATED AUTHOR AUTHOR'S ORGANIZ ATION 12/03/2024 [facility] DATE CREATED AUTHOR AUTHOR'S ORGANIZ ATION 01/23/2025 [facility] DATE CREATED AUTHOR AUTHOR'S ORGANIZ ATION 03/25/2025 [facility] DATE CREATED AUTHOR AUTHOR'S ORGANIZ ATION 04/25/2025 [facility] EP[facility] DATE CREATED AUTHOR AUTHOR'S ORGANIZ ATION 05/12/2025 [facility] Source Comments (unrecognize d section and content) In the event this informatio n is protected by the Federal Confidentiality of Alcohol and Drug Abuse Patient Records regulations: The Federal rules restrict any use of the information to criminally investigate or prosecute any alcohol or drug abuse patient.[facility] the event this information is protected by the Federal Confidentiality of Alcohol and Drug Abuse Patient Records regulations: The Federal rules restrict any use of the information to criminally investigate or prosecute any alcohol or drug abuse patient.[facility] HospitalIn the event this information is protected by the Federal Confidentiality of Alcohol and Drug Abuse Patient Records regulations: The Federal rules restrict any use of the information to criminally investigate or prosecute any alcohol or drug abuse patient.[facility] HospitalIn the event this information is protected by the Federal Confidentiality of Alcohol and Drug Abuse Patient Records regulations: The Federal rules restrict any use of the information to criminally investigate or prosecute any alcohol or drug abuse patient.[facility] HospitalIn the event this information is protected by the Federal Confidentiality of Alcohol and Drug Abuse Patient Records regulations: The Federal rules restrict any use of the information to criminally investigate or prosecute any alcohol or drug abuse patient.[facility] the event this information is protected by the Federal Confidentiality of Alcohol and Drug Abuse Patient Records regulations: The Federal rules restrict any use of the information to criminally investigate or prosecute any alcohol or drug abuse patient.[facility] HospitalIn the event this information is protected by the Federal Confidentiality of Alcohol and Drug Abuse Patient Records regulations: The Federal rules restrict any use of the information to criminally investigate or prosecute any alcohol or drug abuse patient.[facility] HospitalIn the event this information is protected by the Federal Confidentiality of Alcohol and Drug Abuse Patient Records regulations: The Federal rules restrict any use of the information to criminally investigate or prosecute any alcohol or drug abuse patient.[facility] HospitalIn the event this information is protected by the Federal Confidentiality of Alcohol and Drug Abuse Patient Records regulations: The Federal rules restrict any use of the information to criminally investigate or prosecute any alcohol or drug abuse patient.[facility] HospitalIn the event this information is protected by the Federal Confidentiality of Alcohol and Drug Abuse Patient Records regulations: The Federal rules restrict any use of the information to criminally investigate or prosecute any alcohol or drug abuse patient.[facility] HospitalIn the event this information is protected by the Federal Confidentiality of Alcohol and Drug Abuse Patient Records regulations: The Federal rules restrict any use of the information to criminally investigate or prosecute any alcohol or drug abuse patient.[facility] HospitalIn the event this information is protected by the Federal Confidentiality of Alcohol and Drug Abuse Patient Records regulations: The Federal rules restrict any use of the information to criminally investigate or prosecute any alcohol or drug abuse patient.[facility] HospitalIn the event this information is protected by the Federal Confidentiality of Alcohol and Drug Abuse Patient Records regulations: The Federal rules restrict any use of the information to criminally investigate or prosecute any alcohol or drug abuse patient.[facility] HospitalIn the event this information is protected by the Federal Confidentiality of Alcohol and Drug Abuse Patient Records regulations: The Federal rules restrict any use of the information to criminally investigate or prosecute any alcohol or drug abuse patient.[facility] HospitalIn the event this information is protected by the Federal Confidentiality of Alcohol and Drug Abuse Patient Records regulations: The Federal rules restrict any use of the information to criminally investigate or prosecute any alcohol or drug abuse patient.[facility] HospitalIn the event this information is protected by the Federal Confidentiality of Alcohol and Drug Abuse Patient Records regulations: The Federal rules restrict any use of the information to criminally investigate or prosecute any alcohol or drug abuse patient.[facility] HospitalIn the event this information is protected by the Federal Confidentiality of Alcohol and Drug Abuse Patient Records regulations: The Federal rules restrict any use of the information to criminally investigate or prosecute any alcohol or drug abuse patient.[facility] HospitalIn the event this information is protected by the Federal Confidentiality of Alcohol and Drug Abuse Patient Records regulations: The Federal rules restrict any use of the information to criminally investigate or prosecute any alcohol or drug abuse patient.[facility] HospitalIn the event this information is protected by the Federal Confidentiality of Alcohol and Drug Abuse Patient Records regulations: The Federal rules restrict any use of the information to criminally investigate or prosecute any alcohol or drug abuse patient.[facility] HospitalIn the event this information is protected by the Federal Confidentiality of Alcohol and Drug Abuse Patient Records regulations: The Federal rules restrict any use of the information to criminally investigate or prosecute any alcohol or drug abuse patient.[facility] HospitalIn the event this information is protected by the Federal Confidentiality of Alcohol and Drug Abuse Patient Records regulations: The Federal rules restrict any use of the information to criminally investigate or prosecute any alcohol or drug abuse patient.[facility] HospitalIn the event this information is protected by the Federal Confidentiality of Alcohol and Drug Abuse Patient Records regulations: The Federal rules restrict any use of the information to criminally investigate or prosecute any alcohol or drug abuse patient.[facility] HospitalIn the event this information is protected by the Federal Confidentiality of Alcohol and Drug Abuse Patient Records regulations: The Federal rules restrict any use of the information to criminally investigate or prosecute any alcohol or drug abuse patient.[facility] HospitalIn the event this information is protected by the Federal Confidentiality of Alcohol and Drug Abuse Patient Records regulations: The Federal rules restrict any use of the information to criminally investigate or prosecute any alcohol or drug abuse patient.[facility] HospitalIn the event this information is protected by the Federal Confidentiality of Alcohol and Drug Abuse Patient Records regulations: The Federal rules restrict any use of the information to criminally investigate or prosecute any alcohol or drug abuse patient.[facility] HospitalIn the event this information is protected by the Federal Confidentiality of Alcohol and Drug Abuse Patient Records regulations: The Federal rules restrict any use of the information to criminally investigate or prosecute any alcohol or drug abuse patient.[facility] HospitalIn the event this information is protected by the Federal Confidentiality of Alcohol and Drug Abuse Patient Records regulations: The Federal rules restrict any use of the information to criminally investigate or prosecute any alcohol or drug abuse patient.[facility] HospitalIn the event this information is protected by the Federal Confidentiality of Alcohol and Drug Abuse Patient Records regulations: The Federal rules restrict any use of the information to criminally investigate or prosecute any alcohol or drug abuse patient.[facility] HospitalIn the event this information is protected by the Federal Confidentiality of Alcohol and Drug Abuse Patient Records regulations: The Federal rules restrict any use of the information to criminally investigate or prosecute any alcohol or drug abuse patient.[facility] HospitalIn the event this information is protected by the Federal Confidentiality of Alcohol and Drug Abuse Patient Records regulations: The Federal rules restrict any use of the information to criminally investigate or prosecute any alcohol or drug abuse patient.[facility] HospitalIn the event this information is protected by the Federal Confidentiality of Alcohol and Drug Abuse Patient Records regulations: The Federal rules restrict any use of the information to criminally investigate or prosecute any alcohol or drug abuse patient.[facility] HospitalIn the event this information is protected by the Federal Confidentiality of Alcohol and Drug Abuse Patient Records regulations: The Federal rules restrict any use of the information to criminally investigate or prosecute any alcohol or drug abuse patient.[facility] HospitalIn the event this information is protected by the Federal Confidentiality of Alcohol and Drug Abuse Patient Records regulations: The Federal rules restrict any use of the information to criminally investigate or prosecute any alcohol or drug abuse patient.[facility] HospitalIn the event this information is protected by the Federal Confidentiality of Alcohol and Drug Abuse Patient Records regulations: The Federal rules restrict any use of the information to criminally investigate or prosecute any alcohol or drug abuse patient.[facility] HospitalIn the event this information is protected by the Federal Confidentiality of Alcohol and Drug Abuse Patient Records regulations: The Federal rules restrict any use of the information to criminally investigate or prosecute any alcohol or drug abuse patient.[facility] HospitalIn the event this information is protected by the Federal Confidentiality of Alcohol and Drug Abuse Patient Records regulations: The Federal rules restrict any use of the information to criminally investigate or prosecute any alcohol or drug abuse patient.[facility] HospitalIn the event this information is protected by the Federal Confidentiality of Alcohol and Drug Abuse Patient Records regulations: The Federal rules restrict any use of the information to criminally investigate or prosecute any alcohol or drug abuse patient.[facility] HospitalIn the event this information is protected by the Federal Confidentiality of Alcohol and Drug Abuse Patient Records regulations: The Federal rules restrict any use of the information to criminally investigate or prosecute any alcohol or drug abuse patient.[facility] HospitalIn the event this information is protected by the Federal Confidentiality of Alcohol and Drug Abuse Patient Records regulations: The Federal rules restrict any use of the information to criminally investigate or prosecute any alcohol or drug abuse patient.[facility] HospitalIn the event this information is protected by the Federal Confidentiality of Alcohol and Drug Abuse Patient Records regulations: The Federal rules restrict any use of the information to criminally investigate or prosecute any alcohol or drug abuse patient.[facility] HospitalIn the event this information is protected by the Federal Confidentiality of Alcohol and Drug Abuse Patient Records regulations: The Federal rules restrict any use of the information to criminally investigate or prosecute any alcohol or drug abuse patient.[facility] HospitalIn the event this information is protected by the Federal Confidentiality of Alcohol and Drug Abuse Patient Records regulations: The Federal rules restrict any use of the information to criminally investigate or prosecute any alcohol or drug abuse patient.[facility] HospitalIn the event this information is protected by the Federal Confidentiality of Alcohol and Drug Abuse Patient Records regulations: The Federal rules restrict any use of the information to criminally investigate or prosecute any alcohol or drug abuse patient.[facility] HospitalIn the event this information is protected by the Federal Confidentiality of Alcohol and Drug Abuse Patient Records regulations: The Federal rules restrict any use of the information to criminally investigate or prosecute any alcohol or drug abuse patient.[facility] HospitalIn the event this information is protected by the Federal Confidentiality of Alcohol and Drug Abuse Patient Records regulations: The Federal rules restrict any use of the information to criminally investigate or prosecute any alcohol or drug abuse patient.[facility] HospitalIn the event this information is protected by the Federal Confidentiality of Alcohol and Drug Abuse Patient Records regulations: The Federal rules restrict any use of the information to criminally investigate or prosecute any alcohol or drug abuse patient.[facility] HospitalIn the event this information is protected by the Federal Confidentiality of Alcohol and Drug Abuse Patient Records regulations: The Federal rules restrict any use of the information to criminally investigate or prosecute any alcohol or drug abuse patient.[facility] HospitalIn the event this information is protected by the Federal Confidentiality of Alcohol and Drug Abuse Patient Records regulations: The Federal rules restrict any use of the information to criminally investigate or prosecute any alcohol or drug abuse patient.[facility] HospitalIn the event this information is protected by the Federal Confidentiality of Alcohol and Drug Abuse Patient Records regulations: The Federal rules restrict any use of the information to criminally investigate or prosecute any alcohol or drug abuse patient.[facility] HospitalIn the event this information is protected by the Federal Confidentiality of Alcohol and Drug Abuse Patient Records regulations: The Federal rules restrict any use of the information to criminally investigate or prosecute any alcohol or drug abuse patient.[facility] HospitalIn the event this information is protected by the Federal Confidentiality of Alcohol and Drug Abuse Patient Records regulations: The Federal rules restrict any use of the information to criminally investigate or prosecute any alcohol or drug abuse patient.[facility] HospitalIn the event this information is protected by the Federal Confidentiality of Alcohol and Drug Abuse Patient Records regulations: The Federal rules restrict any use of the information to criminally investigate or prosecute any alcohol or drug abuse patient.[facility] HospitalIn the event this information is protected by the Federal Confidentiality of Alcohol and Drug Abuse Patient Records regulations: The Federal rules restrict any use of the information to criminally investigate or prosecute any alcohol or drug abuse patient.[facility] HospitalIn the event this information is protected by the Federal Confidentiality of Alcohol and Drug Abuse Patient Records regulations: The Federal rules restrict any use of the information to criminally investigate or prosecute any alcohol or drug abuse patient.[facility] HospitalIn the event this information is protected by the Federal Confidentiality of Alcohol and Drug Abuse Patient Records regulations: The Federal rules restrict any use of the information to criminally investigate or prosecute any alcohol or drug abuse patient.[facility] the event this information is protected by the Federal Confidentiality of Alcohol and Drug Abuse Patient Records regulations: The Federal rules restrict any use of the information to criminally investigate or prosecute any alcohol or drug abuse patient.[facility] HospitalIn the event this information is protected by the Federal Confidentiality of Alcohol and Drug Abuse Patient Records regulations: The Federal rules restrict any use of the information to criminally investigate or prosecute any alcohol or drug abuse patient.[facility] HospitalIn the event this information is protected by the Federal Confidentiality of Alcohol and Drug Abuse Patient Records regulations: The Federal rules restrict any use of the information to criminally investigate or prosecute any alcohol or drug abuse patient.[facility] HospitalIn the event this information is protected by the Federal Confidentiality of Alcohol and Drug Abuse Patient Records regulations: The Federal rules restrict any use of the information to criminally investigate or prosecute any alcohol or drug abuse patient.[facility] HospitalIn the event this information is protected by the Federal Confidentiality of Alcohol and Drug Abuse Patient Records regulations: The Federal rules restrict any use of the information to criminally investigate or prosecute any alcohol or drug abuse patient.[facility] HospitalIn the event this information is protected by the Federal Confidentiality of Alcohol and Drug Abuse Patient Records regulations: The Federal rules restrict any use of the information to criminally investigate or prosecute any alcohol or drug abuse patient.[facility] HospitalIn the event this information is protected by the Federal Confidentiality of Alcohol and Drug Abuse Patient Records regulations: The Federal rules restrict any use of the information to criminally investigate or prosecute any alcohol or drug abuse patient.[facility] HospitalIn the event this information is protected by the Federal Confidentiality of Alcohol and Drug Abuse Patient Records regulations: The Federal rules restrict any use of the information to criminally investigate or prosecute any alcohol or drug abuse patient.[facility] HospitalIn the event this information is protected by the Federal Confidentiality of Alcohol and Drug Abuse Patient Records regulations: The Federal rules restrict any use of the information to criminally investigate or prosecute any alcohol or drug abuse patient.[facility] HospitalIn the event this information is protected by the Federal Confidentiality of Alcohol and Drug Abuse Patient Records regulations: The Federal rules restrict any use of the information to criminally investigate or prosecute any alcohol or drug abuse patient.[facility] HospitalIn the event this information is protected by the Federal Confidentiality of Alcohol and Drug Abuse Patient Records regulations: The Federal rules restrict any use of the information to criminally investigate or prosecute any alcohol or drug abuse patient.[facility] HospitalIn the event this information is protected by the Federal Confidentiality of Alcohol and Drug Abuse Patient Records regulations: The Federal rules restrict any use of the information to criminally investigate or prosecute any alcohol or drug abuse patient.[facility] HospitalIn the event this information is protected by the Federal Confidentiality of Alcohol and Drug Abuse Patient Records regulations: The Federal rules restrict any use of the information to criminally investigate or prosecute any alcohol or drug abuse patient.[facility] HospitalIn the event this information is protected by the Federal Confidentiality of Alcohol and Drug Abuse Patient Records regulations: The Federal rules restrict any use of the information to criminally investigate or prosecute any alcohol or drug abuse patient.[facility] HospitalIn the event this information is protected by the Federal Confidentiality of Alcohol and Drug Abuse Patient Records regulations: The Federal rules restrict any use of the information to criminally investigate or prosecute any alcohol or drug abuse patient.[facility] HospitalIn the event this information is protected by the Federal Confidentiality of Alcohol and Drug Abuse Patient Records regulations: The Federal rules restrict any use of the information to criminally investigate or prosecute any alcohol or drug abuse patient.[facility] HospitalIn the event this information is protected by the Federal Confidentiality of Alcohol and Drug Abuse Patient Records regulations: The Federal rules restrict any use of the information to criminally investigate or prosecute any alcohol or drug abuse patient.[facility] HospitalIn the event this information is protected by the Federal Confidentiality of Alcohol and Drug Abuse Patient Records regulations: The Federal rules restrict any use of the information to criminally investigate or prosecute any alcohol or drug abuse patient.[facility] HospitalIn the event this information is protected by the Federal Confidentiality of Alcohol and Drug Abuse Patient Records regulations: The Federal rules restrict any use of the information to criminally investigate or prosecute any alcohol or drug abuse patient.[facility] HospitalIn the event this information is protected by the Federal Confidentiality of Alcohol and Drug Abuse Patient Records regulations: The Federal rules restrict any use of the information to criminally investigate or prosecute any alcohol or drug abuse patient.[facility] HospitalIn the event this information is protected by the Federal Confidentiality of Alcohol and Drug Abuse Patient Records regulations: The Federal rules restrict any use of the information to criminally investigate or prosecute any alcohol or drug abuse patient.[facility] HospitalIn the event this information is protected by the Federal Confidentiality of Alcohol and Drug Abuse Patient Records regulations: The Federal rules restrict any use of the information to criminally investigate or prosecute any alcohol or drug abuse patient.[facility] HospitalIn the event this information is protected by the Federal Confidentiality of Alcohol and Drug Abuse Patient Records regulations: The Federal rules restrict any use of the information to criminally investigate or prosecute any alcohol or drug abuse patient.[facility] HospitalIn the event this information is protected by the Federal Confidentiality of Alcohol and Drug Abuse Patient Records regulations: The Federal rules restrict any use of the information to criminally investigate or prosecute any alcohol or drug abuse patient.[facility] Reason for Visit (unrecogniz ed section and content) ReasonCommentsRefill RequestReasonOnset DateCommentsPopulation Health Navigation Joeondff07/18/2022ACO PCPReasonCommentschronic ITPReasonCommentsChronic ITP1 month follow upReasonCommentsMedication Follow-upTavalisse free drug application faxedReasonCommentsThrombocytopeniaReasonCommentsChronic ITPReasonCommentsITP Follow upReasonCommentsITPFollow upReasonCommentsReferral InformationDermatology ReasonOnset DateCommentsRefill Ekeglid5509/23/2022ReasonCommentsChronic ITP (idiopathic thrombocytopenia) (HCC)ReasonCommentsLab OrdersReasonCommentsITP ReasonOnset DateCommentsRefill Qnflogl5305/01/2023ReasonCommentsEar ProblemLeft TM perfReasonCommentsChronic ITP (idiopathic thrombocytopenia) (HCC)1 month follow upSpecialtyDiagnoses / ProceduresReferred By ContactReferred To Contact Radiology Diagnoses Cholesteatoma of left ear Procedures CT internal auditory canals [place] [address] [place] [address] Referral IDStatusReasonStart DateExpiration DateVisits RequestedVisits [id number] Review Perform Procedure /[id number] LossReasonCommentsChronic ITP6 week follow upReasonCommentsCall RequestSpecialtyDiagnoses / ProceduresReferred By ContactReferred To Contact Diagnoses 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 [H71.92] Procedures TX TMPP MASTOIDECT NTC/RCNSTED CANAL WALL OCR TX GRAFT EAR CRTLG AUTOGENOUS NOSE/EAR TX TMPP MASTOIDECTOMY W/OSSICULAR CHAIN RECNSTJ Left Side Tympanomastoidectomy Canal Wall Up; Ossiculoplasty; [place] [address] [place] [address] [facility] [address] [place] [address] Referral IDStatusReasonStart DateExpiration DateVisits RequestedVisits [id number] DateCommentsRefill Usjfkau93/18/2024ReasonOnset DateCommentsRefill Oazhijo86/24/2024ReasonCommentsThyroid fine needle biopsy at [facility]/ITPReasonCommentsPainSpecialtyDiagnoses / ProceduresReferred By Contact Referred To ContactOrthopaedic Surgery Diagnoses Posterior left knee pain Stephanie Dumont, STRAP CUTTING MACHINE OPERATOR [address] [place] [address] Jr. Herson Avalos DO [address] [place] [address] Referral IDStatusReasonStart DateExpiration DateVisits RequestedVisits [id number] Specialty Services Required /[id number] DateCommentsMed Hhlybj584ReasonComments Thyroid NoduleFNA 04/16/24 [facility]pecialtyDiagnoses / ProceduresReferred By Contact Referred To ContactOtolaryngology Diagnoses Thyroid nodule (CMS/HCC) Procedures TX OFFICE/OUTPATIENT NEW HIGH MDM 60 MINUTES Stephanie Dumont, STRAP CUTTING MACHINE OPERATOR [address] [place] [address] Phone: tel: fax: Mar Mayo MD [address] [place] [address] Phone: tel: fax: Referral IDStatusReasonStart DateExpiration DateVisits RequestedVisits [id number] Specialty Services Required /[id number] ITPHigh Blood SugarReasonComments Post-opReasonCommentsAnemiaReasonCommentsMedication Assistance ProgramMedication AuthorizationTavalisse APPROVEDReasonCommentsMed RefillReasonCommentsFollow-up Had hearing testReasonCommentsHypertensionReasonOnset DateCommentsMed Refill 01/01/2025ReasonCommentsHospital Follow-upReasonCommentsThyroid Nodule6 month ultrasound 03/19/25 TBHReasonOnset DateCommentsinsurance won't cover rx04/02/2025 ReasonCommentsGlossitis3 week follow up Care Teams (unrecognized sec tion and content) Team Status: Active Member Role Status Dates NON STAFF Primary Care Provider Active Team Status: Inactive Member Role Status Dates Gilson Arriola MD Attending Provider Active Start : August 21, 2024 End: August 21, 2024NON STAFFPrimary Care ProviderActiveStart: August 21, 2024 End: August 21, 2024Team MemberRelationshipSpecialtyStart DateEnd Date Paloma Saldaña [address] [place] [address] PCP - GeneralFamily Omnfdowe36/17/ Team Status: Inactive Member Role Status Dates Gilson Arriola MD Attending Provider Active NON STAFFPrimary Care ProviderActiveTeam MemberRelationshipSpecialtyStart Date End Date Shaikh Biswas MD [address] [place] [address] PCP - GeneralPrimary Care3/23Team MemberRelationshipSpecialtyStart DateEnd Date Shaikh Biswas MD [address] [place] [address] PCP - GeneralPrimary Care3/23Team MemberRelationshipSpecialtyStart DateEnd Date Shaikh Biswas MD [address] [place] [address] PCP - GeneralPrimary Care3/04/01Team MemberRelationshipSpecialtyStart DateEnd Date Shaikh Biswas MD [address] [place] [address] PCP - GeneralPrimary Care3/23Team MemberRelationshipSpecialtyStart DateEnd Date Stephanie Dumont [address] [place] [address] PCP - Ysjfvkv67/23Team MemberRelationshipSpecialtyStart DateEnd Date Stephanie Dumont [address] [place] [address] PCP - Dkxjnah89//23Team MemberRelationshipSpecialtyStart DateEnd Date Stephanie Dumont [address] [place] [address] PCP - Ecdljjb59/12/23Team MemberRelationshipSpecialtyStart DateEnd Date Wilfred Polanco MD [address] [place] [address] PCP - GeneralFamily Medicine07/17/23 Stephanie Dumont NP [address] [place] [address] [facility] Mkhuywak36/1/23Team MemberRelationshipSpecialtyStart DateEnd Date Wilfred Polanco MD [address] [place] [address] PCP - Generalmi Medicine07/17/23 Stephanie Dumont NP [address] [place] [address] [facility]Card[facility] Medyheym99/1/23Team MemberRelationshipSpecialtyStart DateEnd Date Wilfred Polanco MD [address] [place] [address] [facility] - [facility] Medicine08/17/23 Stephanie Dumont NP [address] [place] [address] [facility] Wjmluvkl41/1/23Team MemberRelationshipSpecialtyStart DateEnd Date Wilfred Polanco MD [address] [place] [address] PCP - Generalmi Medicine08/17/23 Stephanie Dumont NP [address] [place] [address] Nurse PractitionerFamily Rtvpzwzn74/1/23Team MemberRelationshipSpecialtyStart DateEnd Date Wilfred Polanco MD [address] [place] [address] PCP - [facility] Hospitally Medicine08/17/23 Stephanie Dumont NP [address] [place] [address] [facility]Card[facility] Kbpjxxgu77/1/23Team MemberRelationshipSpecialtyStart DateEnd Date Stephanie Dumont [address] [place] [address] PCP - Fdiybie76/12/23Team MemberRelationshipSpecialtyStart DateEnd Date Stephanie Dumont [address] [place] [address] PCP - Yszkbkj78/12/23Team MemberRelationshipSpecialtyStart DateEnd Date Stephanie Dumont [address] [place] [address] PCP - Ihznncq69/12/23Team MemberRelationshipSpecialtyStart DateEnd Date Stephanie Dumont [address] [place] [address] PCP - Fxkcvly51/12/23Team MemberRelationshipSpecialtyStart DateEnd Date Stephanie Dumont PCP - Xpsulpb88/12/23Team MemberRelationshipSpecialtyStart DateEnd Date Stephanie Dumont PCP - Pyrxmpr05/12/23Team MemberRelationshipSpecialtyStart DateEnd Date Stephanie Dumont PCP - Lzzowvm19/12/23Team MemberRelationshipSpecialtyStart DateEnd Date Stephanie Dumont PCP - Fiihjby42/12/23Team MemberRelationshipSpecialtyStart DateEnd Date [facility] PCP - Oegqpdo82/12/23Team MemberRelationshipSpecialtyStart DateEnd Date [facility], Stephanie PCP - Wuhhuzy17/12/23Team MemberRelationshipSpecialtyStart DateEnd Date [facility] PCP - Iwdfmzd64/12/23Team MemberRelationshipSpecialtyStart DateEnd Date Wilfred Polanco MD [address] [place] [address] [facility] - [facility]08/17/23 Stephanie Dumont NP [address] [place] [address] PCP [facility] Stephanie Dumont NP [address] [place] [address] Nurse Pract[facility]04/09/23Team MemberRelationshipSpecialtyStart DateEnd Date Wilfred Polanco MD [address] [place] [address] PCP - [facility]08/17/23 Stephanie Dumont NP [address] [place] [address] [place] [address] Stephanie Dumont NP [address] [place] [address] Nurse Pract[facility]04/09/23 Team Status: Active Member Role Status Dates Stephanie Bowensrichi Primary Care Provider Active Sta rt: February 12, 2024 Yasemin Mejia ProviderActiveStart: February 12, 2024 Team Status: Inactive Member Role Status Dates Tha Salguero MD Attending Provider Active Start: April 16, 2024 End: April 16, 2024Team MemberRelationshipSpecialtyStart DateEnd Date Stephanie Dumont [facility]04/20/23Team MemberRelationshipSpecialtyStart DateEnd Date Wilfred Polanco MD [address] [place] [address] [facility]08/17/23 Stephanie Dumont NP [address] [place] [address] [place] [address]/ Stephanie Dumont NP [address] [place] [address] Nurse Practitioner[facility]04/09/23Team MemberRelationshipSpecialtyStart DateEnd Date Stephanie Dumont NP [address] [place] [address] [place] [address]/ Unallocated, Noms Provider, [address] [place] [address] [facility]04/24/24 Stephanie Dumont NP [address] [place] [address] [facility] Ehzuyyzx68/1/23Team MemberRelationshipSpecialtyStart DateEnd Date Stephanie Dumont NP [address] [place] [address] [place] [address]/ Stephanie Dumont NP [address] [place] [address] Nurse Practitioner[facility]04/09/23Team MemberRelationshipSpecialtyStart DateEnd Date Stephanie Dumont NP [address] [place] [address] [place] [address]/ Wilfred Polanco MD [address] [place] [address] [facility] Oobxfpkw99/4/24 Stephanie Dumont NP [address] [place] [address] Nurse Practitioner[facility]04/09/23Te MemberRelationshipSpecialtyStart DateEnd Date Stephanie Dumont NP [address] [place] [address] [place] [address]/ Wilfred Polanco MD [address] [place] [address] PCP - [facility]05/13/24 Stephanie Dumont NP [address] [place] [address] Nurse Practition[facility]04/09/23Te MemberRelationshipSpecialtyStart DateEnd Date Stephanie Dumont NP [address] [place] [address] [place] [address] Wilfred Polanco MD [address] [place] [address] PCP - [facility]05/13/24 Stephanie Dumont NP [address] [place] [address] Nurse Practitioner[facility]04/09/23Te MemberRelationshipSpecialtyStart DateEnd Date Stephanie Dumont NP [address] [place] [address] [place] [address]/ Wilfred Polanco MD [address] [place] [address] PCP - [facility]05/13/24 Stephanie Dumont NP [address] [place] [address] Nurse Pract[facility]04/09/23Te MemberRelationshipSpecialtyStart DateEnd Date Stephanie Dumont NP [address] [place] [address] [place] [address] Wilfred Polanco MD [address] [place] [address] [facility] - [facility]05/13/24 Stephanie Dumont NP [address] [place] [address] Nurse Practition[facility]04/09/23Team MemberRelationshipSpecialtyStart DateEnd Date Stephanie Dumont NP [address] [place] [address] [place] [address] Wilfred Polanco MD [address] [place] [address] [facility]05/13/24 Stephanie Dumont NP [address] [place] [address] Nurse Pract[facility]04/09/23Team MemberRelationshipSpecialtyStart DateEnd Date Stephanie Dumont NP [address] [place] [address] [place] [address] Wilfred Polanco MD [address] [place] [address] PCP - GeneralWashington [facility]05/13/24 Stephanie Dumont NP [address] [place] [address] [facility] Xclvjpin03/1/23Team MemberRelationshipSpecialtyStart DateEnd Date Stephanie Dumont PCP - Ogedpqt27/12/23Team MemberRelationshipSpecialtyStart DateEnd Date Wilfred Polanco MD [address] [place] [address] PCP - [facility]08/17/23 Stephanie Dumont NP [address] [place] [address] [place] [address]/ Stephanie Dumont NP [address] [place] [address] Nurse PractitionerWashington [facility]04/09/23Te MemberRelationshipSpecialtyStart DateEnd Date Wilfred Polanco MD [address] [place] [address] PCP - [facility]08/17/23 Stephanie Dumont NP [address] [place] [address] PCP [facility] Stephanie Dumont NP [address] [place] [address] Nurse PractitionerWashington [facility]04/09/23Te MemberRelationshipSpecialtyStart DateEnd Date Wilfred Polanco MD [address] [place] [address] PCP - [facility]08/17/23 Stephanie Dumont NP [address] [place] [address] [place] [address]/ Stephanie Dumont NP [address] [place] [address] Nurse Practitioner[facility]04/09/23Te MemberRelationshipSpecialtyStart DateEnd Date Wilfred Polanco MD [address] [place] [address] [facility] - [facility]08/17/23 Stephanie Dumont NP [address] [place] [address] [place] [address]/ Stephanie Dumont NP [address] [place] [address] Nurse Practitioner[facility]04/09/23Te MemberRelationshipSpecialtyStart DateEnd Date Wilfred Polanco MD [address] [place] [address] PCP - [facility]08/17/23 Stephanie Dumont NP [address] [place] [address] [place] [address]/ Stephanie Dumont NP [address] [place] [address] Nurse Pract[facility]04/09/23Team MemberRelationshipSpecialtyStart DateEnd Date Wilfred Polanco MD [address] [place] [address] PCP - [facility]08/17/23 Stephanie Dumont NP [address] [place] [address] [place] [address]/ Stephanie Dumont NP [address] [place] [address] Nurse Pract[facility]04/09/23Team MemberRelationshipSpecialtyStart DateEnd Date Wilfred Polanco MD [address] [place] [address] PCP - [facility]08/17/23 Stephanie Dumont NP [address] [place] [address] PCP - [facility]/ Stephanie Dumont NP [address] [place] [address] Nurse Practitionermily Twxyfffw03/1/23Team MemberRelationshipSpecialtyStart DateEnd Date Wilfred Polanco MD [address] [place] [address] PCP - [facility]08/17/23 Stephanie Dumont NP [address] [place] [address] [place] [address] Stephanie Dumont NP [address] [place] [address] [facility] Mumatqpf86/1/23Team MemberRelationshipSpecialtyStart DateEnd Date Stephanie Dumont PCP - Dspsjas38/12/23Team MemberRelationshipSpecialtyStart DateEnd Date Stephanie Dumont PCP - Lxyypmf92/12/23Team MemberRelationshipSpecialtyStart DateEnd Date Stephanie Dumont NP [address] [place] [address] [place] [address] Wilfred Polanco MD [address] [place] [address] PCP - Generalmily Snjnrudq91/4/24 Stephanie Dumont NP [address] [place] [address] [facility] Qyplwzsw88/1/23Te MemberRelationshipSpecialtyStart DateEnd Date Stephanie Dumont NP [address] [place] [address] [place] [address] Wilfred Polanco MD [address] [place] [address] PCP - [facility]05/13/24 Stephanie Dumont NP [address] [place] [address] Nurse Pract[facility]04/09/23Te MemberRelationshipSpecialtyStart DateEnd Date Stephanie Dumont [facility]04/20/23 MemberRelationshipSpecialtyStart DateEnd Date Stephanie Dumont NP [address] [place] [address] [place] [address] Wilfred Polanco MD [address] [place] [address] [facility] - [facility]05/13/24 Stephanie Dumont NP [address] [place] [address] Nurse Pract[facility]04/09/23Team MemberRelationshipSpecialtyStart DateEnd Date Stephanie Dumont NP [address] [place] [address] PCP - C4/ Wilfred Polanco MD [address] [place] [address] [facility]CP - [facility] Ekzgntol37/4/24 Stephanie Dumont NP [address] [place] [address] Nurse PractitionerP[facility] Bndjbztb81/1/23Team MemberRelationshipSpecialtyStart DateEnd Date [facility], Stephanie PCP - Zquvfai03/12/23Team MemberRelationshipSpecialtyStart DateEnd Date Aicholz, Stephanie PCP - Tmltksr13/12/23Team MemberRelationshipSpecialtyStart DateEnd Date Aicholz, Stephanie PCP - Qlxrcrl75/12/23Team MemberRelationshipSpecialtyStart DateEnd Date [facility], Stephanie PCP - Jigauga63/12/23Team MemberRelationshipSpecialtyStart DateEnd Date [facility], Stephanie PCP - Ylrmlxi56/12/23Team MemberRelationshipSpecialtyStart DateEnd Date Stephanie Dumont NP [address] [place] [address] PCP - [facility]/ Wilfred Polanco MD [address] [place] [address] PCP - [facility] Fawgllsd02/4/24 Stephanie Dumont NP [address] [place] [address] Nurse PractitionerFautly Jirhdpqa36/1/23Te MemberRelationshipSpecialtyStart DateEnd Date Stephanie Dumont PCP - Edrczcr81/12/23Te MemberRelationshipSpecialtyStart DateEnd Date Stephanie Dumont NP [address] [place] [address] [place] [address] Wilfred Polanco MD [address] [place] [address] PCP - [facility]05/13/24 Stephanie Dumont NP [address] [place] [address] Nurse Pract[facility]04/09/23Te MemberRelationshipSpecialtyStart DateEnd Date Stephanie Dumont NP [address] [place] [address] [place] [address] Wilfred Polanco MD [address] [place] [address] PCP - [facility]05/13/24 Stephanie Dumont NP [address] [place] [address] [facility] Tdpxrlyl66/1/23Team MemberRelationshipSpecialtyStart DateEnd Date Stephanie Dumont NP [address] [place] [address] [place] [address] Wilfred Polanco MD [address] [place] [address] PCP - [facility] [facility]05[facility]24 Stephanie Dumont NP [address] [place] [address] Nurse PractitionerWashington [facility]04/09/23Team MemberRelationshipSpecialtyStart DateEnd Date Stephanie Dumont NP [address] [place] [address] [place] [address] Wilfred Polanco MD [address] [place] [address] PCP - [facility]05/13/24 Stephanie Dumont NP [address] [place] [address] Nurse Practitioner[facility]04/09/23Team MemberRelationshipSpecialtyStart DateEnd Date Stephanie Dumont NP [address] [place] [address] [place] [address] Wilfred Polanco MD [address] [place] [address] PCP - [facility]05/13/24 Stephanie Dumont NP [address] [place] [address] [facility] Mzxqkqah08/1/23Team MemberRelationshipSpecialtyStart DateEnd Date Stephanie Dumont PCP - Dfueqkc57/12/23Te MemberRelationshipSpecialtyStart DateEnd Date Stephanie Dumont NP [address] [place] [address] [place] [address] Wilfred Polanco MD [address] [place] [address] PCP - [facility]05/13/24 Stephanie Dumont NP [address] [place] [address] Nurse Pract[facility]er[facility]04/09/23Te MemberRelationshipSpecialtyStart DateEnd Date Stephanie Dumont NP [address] [place] [address] [place] [address] Wilfred Polanco MD [address] [place] [address] PCP - [facility]05/13/24 Stephanie Dumont NP [address] [place] [address] [facility] Wqornmdq74/1/23Te MemberRelationshipSpecialtyStart DateEnd Date tSephanie Dumont NP [address] [place] [address] [place] [address]/ Wilfred Polanco MD [address] [place] [address] PCP - [facility]05/13/24 Stephanie Dumont NP [address] [place] [address] Nurse Practitioner[facility]04/09/23Te MemberRelationshipSpecialtyStart DateEnd Date Stephanie Dumont NP [address] [place] [address] [place] [address] Wlifred Polanco MD [address] [place] [address] PCP - [facility]05/13/24 Stephanie Dumont NP [address] [place] [address] Nurse PractitionerWashington [facility]04/09/23Te MemberRelationshipSpecialtyStart DateEnd Date Stephanie Dumont NP [address] [place] [address] PCP - [facility] Wilfred Polanco MD [address] [place] [address] [facility] - [facility] Tjdjfcds44/4/24 Stephanie Dumont NP [address] [place] [address] [facility] Rdcouhao99/1/23Team MemberRelationshipSpecialtyStart DateEnd Date Stephanie Dumont PCP - Qlbnrji04/12/23Team MemberRelationshipSpecialtyStart DateEnd Date Stephanie Dumont NP [address] [place] [address] [facility] - [facility]/ Wilfred Polanco MD [address] [place] [address] [facility] - [facility] Yqbcndza42/4/24 Stephanie Dumont NP [address] [place] [address] [facility] Hdlldkul35/1/23 Team Status: Active Member Role Status Dates Stephanie Dumont Primary Care Provider Active Team Status: Inactive Member Role Status Dates Gilson Arriola MD Attending Provider Active Start : January 27, 2025 End: January 27, 2025Stephanie DumontPrimary Care ProviderActiveStart: January 27, 2025 End: January 27, 2025Team MemberRelationshipSpecialtyStart DateEnd Date Stephanie Dumont PCP - Osscprl34/12/23Team MemberRelationshipSpecialtyStart DateEnd Date Stephanie Dumont PCP - Jgjradg54/12/23Team MemberRelationshipSpecialtyStart DateEnd Date Stephanie Dumont, DEVELOPING MACHINE TENDER-DRUG ABUSE WORKER [address] [place] [address] PCP - General11/29/24 Rinku Dupree MD [facility] [place] [address] Referring PhysicianHematology and Oncology11/29/24Team MemberRelationship SpecialtyStart DateEnd Date Stephanie Dumont PCP - Bqxzgdc63/12/23 Team Status: Inactive Member Role Status Dates Stephanie Dumont Primary Care Provider Active Sta rt: March 13, 2025 End: March 13, 2025Stephanie Butlerttending ProviderActiveStart: March 13, 2025 End: March 13, 2025Team MemberRelationshipSpecialtyStart DateEnd Date Stephanie Dumont PCP - Gplpkwj80/12/23Team MemberRelationshipSpecialtyStart DateEnd Date Stephanie Dumont NP [address] [place] [phone] PCP - [facility]/ Wilfred Polanco MD [address] [place] [address] [facility] - [facility] Whxmqulv39/4/24 Stephanie Dumont NP Nurse PractitionerFamily Bxxwycap35/1/23Team MemberRelationshipSpecialtyStart DateEnd Date Stephanie Dumont NP [address] [place] [address] [place] [address] Wilfred Polanco MD [address] [place] [address] PCP - [facility]03/27/25 Stephanie Dumont NP [address] [place] [address] Nurse Practition[facility]03/27/25Team MemberRelationshipSpecialtyStart DateEnd Date Stephanie Dumont NP [address] [place] [address] [place] [address] Wilfred Polanco MD [address] [place] [address] [facility]03/27/25 Stephanie Dumont NP [address] [place] [address] Nurse PractitionerWashington [facility]03/27/25Team MemberRelationshipSpecialtyStart DateEnd Date Stephanie Dumont NP [address] [place] [address] [place] [address] Wilfred Polanco MD [address] [place] [address] PCP - [facility]03/27/25 Stephanie Dumont NP [address] [place] [address] Nurse Pract[facility]03/27/25Team MemberRelationshipSpecialtyStart DateEnd Date Stephanie Dumont NP [address] [place] [address] [place] [address]/ Wilfred Polanco MD [address] [place] [address] [facility] - [facility]03/27/25 Stephanie Dumont NP [address] [place] [address] Nurse Pract[facility]03/27/25 Team Status: Active Member Role Status Dates KYUNG Reece Primary Care Provider Active Team Status: Inactive Member Role Status Dates Gilson Arriola MD Attending Provider Active Start : January 27, 2025 End: January 27, 2025Stephanie Dumont NP-[facility] Care ProviderActiveStart: January 27, 2025 End: January 27, 2025 Team Status: Inactive Member Role Status Dates Stephanie Dumont NP-C Primary Care Provider Active Start: March 13, 2025 End: March 13, 2025Stephanie Dumont NP-[facility]tten[facility] ProviderActiveStart: March 13, 2025 End: March 13, 2025 Team Status: Active Member Role Status Dates Stephanie J Aichholz , STRAP CUTTING MACHINE OPERATOR-C Primary Care Provider Active Start: April 23, 2025 Gilson Arriola MDAttending ProviderActiveStart: April 23, 2025 Team Status: Inactive Member Role Status Dates Stephanie Dumont , STRAP CUTTING MACHINE OPERATOR-C Primary Care Provider Active Start: April 24, 2025 End: April 24, 2025Stephanie Dumont , STRAP CUTTING MACHINE OPERATOR-CAttending ProviderActiveStart: April 24, 2025 End: April 24, 2025 Team Status: Active Member Role/Relationship Status Dates Stephanie Dumont , STRAP CUTTING MACHINE OPERATOR-C Primary Care Provider Active Team Status: Inactive Member Role/Relationship Status Dates Stephanie Dumont , STRAP CUTTING MACHINE OPERATOR-C Primary Care Provider Active Start: March 13, 2025 End: March 13, 2025Stephanie Dumont , STRAP CUTTING MACHINE OPERATOR-CAttending ProviderActiveStart: March 13, 2025 End: March 13, 2025 Team Status: Active Member Role/Relationship Status Dates Stephanie Dumont , STRAP CUTTING MACHINE OPERATOR-C Primary Care Provider Active Start: April 23, 2025 Gilson Arriola MDAttending ProviderActiveStart: April 23, 2025 Team Status: Inactive Member Role/Relationship Status Dates Stephanie Dumont , STRAP CUTTING MACHINE OPERATOR-C Primary Care Provider Active Start: April 24, 2025 End: April 24, 2025Stephanie Dumont , STRAP CUTTING MACHINE OPERATOR-CAttending ProviderActiveStart: April 24, 2025 End: April 24, 2025 Team Status: Inactive Member Role/Relationship Status Dates Gilson Arriola MD Attending Provider Active Start : April 30, 2025 End: April 30, 2025Stephanie Dumont STRAP CUTTING MACHINE OPERATOR-CPrimary Care ProviderActiveStart: April 30, 2025 End: April 30, 2025Team MemberRelationshipSpecialtyStart DateEnd Date Wilfred Polanco MD PCP - [facility]08/17/2409 Stephanie Dumont NP [address] [place] [address] [facility] - [facility]/ Wilfred Polanco MD PCP - Generalmily Lfncicka59/4/249 Wilfred Polanco MD [address] [place] [address] PCP - GeneralFamily Medicine03/27/25 Stephanie Dumont NP [facility] Qwbcdabu36/1/239 Stephanie Dumont NP [address] [place] [address] Nurse Pract[facility]er[facility]03/27/25Team MemberRelationshipSpecialtyStart DateEnd Date Wilfred Polanco MD PCP - [facility]Washington [facility]08/17/2409 Stephanie Dumont NP [address] [place] [address] [facility] - [facility] Wilfred Polanco MD PCP - Generalmily Eggoakje31/4/249 Wilfred Polanco MD [address] [place] [address] PCP - Generalmily Medicine03/27/25 Stephanie Dumont NP Nurse PractitionerFamily Aymdtflq23/1/239 Stephanie Dumont NP [address] [place] [address] [facility] Medicine03/27/25Team MemberRelationshipSpecialtyStart DateEnd Date Stephanie Dumont NP [address] [place] [address] PCP - / Wilfred Polanco MD [address] [place] [address] PCP - GeneralFamily Uicvumvp70/4/249 Wilfred Polanco MD [address] [place] [address] PCP - GeneralFamily Medicine03/27/25 Stephanie Dumont NP [facility] Qpoxkyxe62/1/239 Stephanie Dumont NP [address] [place] [address] [facility] Medicine03/27/25Team MemberRelationshipSpecialtyStart DateEnd Date Wilfred Polanco MD PCP - [facility]08/17/2409 Stephanie Dumont NP [address] [place] [address] [place] [address]/ Wilfred Polanco MD PCP - [facility] Wilfred Polanco MD [address] [place] [address] PCP - [facility]03/27/25 Stephanie Dumont NP [facility] Stephanie Dumont NP [address] [place] [place] [address] Nurse PractitionerWashington [facility]03/27/25 Team Status: Inactive Member Role/Relationship Status Dates Stephanie Dumont NP-C Primary Care Provider Active Start: May 08, 2025 End: May 08, 2025Padilla Pedraza ProviderActiveStart: May 08, 2025 End: May 08, 2025 Goals (unrecognized section and content) Goals may be documented in a n alternate section Scheduled Active and Recently Administ ered Medications (unrecognized section and content) Medication Order//04/2024 acetaminophen (Tylenol) tablet 975 mg (COMPLETED) 975 mg, oral, Once, On 12/18/23 at 1430, For 1 dose, Recovery & On Unit, If ordered PRN for pain, nurse is permitted to administer this medication for higher pain scores based on patient preference? Yes * 1405 (Given - Provider: Pamela Paul RN) lidocaine PF (Xylocaine) 10 mg/mL (1 %) injection 1 mg 1 mg (0.1 mL), subcutaneous, Once, On Mon12/18/23 at 1300, For 1 dose, Recovery (only), To be used for IV insertion ONLY * 1300 (Due) Medication Order/ lactated Ringer's infusion 100 mL/hr, intravenous, Continuous, Starting on Mon12/18/23 at 1300, Recovery (only) * 1300 (Due) Medication Order/ bacitracin ointment (CANCELED) As needed, Starting on Mon12/18/23 at 0904, Intraprocedure * 0904 (Given - Provider: Susanna Graf MD) balanced salts (BSS) intraocular solution (CANCELED) As needed, Starting on Mon12/18/23 at 0905, Intraprocedure * 0905 (Given - Provider: Susanna Graf MD - Comment: IRRIGATION) ciprofloxacin-dexamethasone (CiproDEX) otic suspension (CANCELED) As needed, Starting on Mon12/18/23 at 0906, Intraprocedure * 0906 (Given - Provider: Susanna Graf MD) EPINEPHrine HCl (PF) (Adrenalin) injection (CANCELED) As needed, Starting on Mon12/18/23 at 0909, Intraprocedure * 0909 (Given - Provider: Susanna Graf MD - Comment: Mixed w/ 19ml injectable NaCl) gelatin absorbable (Gelfoam) 100 sponge (CANCELED) As needed, Starting on Mon12/18/23 at 0906, Intraprocedure * 0906 (Given - Provider: Susanna Graf MD - Comment: Soaked in [...] needed, Starting on Mon12/18/23 at 0906, Intraprocedure * 0906 (Given - Provider: Susanna Graf MD - Comment: Preop) ondansetron [...] needed, Starting on Mon12/18/23 at 0908, Intraprocedure * 0908 (Given - Provider: Susanna Graf MD - Comment: Also 1L bottle warmed on field) sodium chloride bacteriostatic 0.9 % injection (CANCELED) As needed, Starting on Mon12/18/23 at 0907, Intraprocedure * 0907 (Given - Provider: Susanna Graf MD - Comment: Mixed with 1ml Epi) Medication Order02/03//// ceFAZolin (Ancef) 2 g in dextrose (iso) [...] documented infection plus systemic manifestations of infection)? No,Suspected Indication (Select all that apply): Surgical Prophylaxis, Indications: Surgical Prophylaxis * 1030 (Due) lidocaine PF (Xylocaine) 10 mg/mL (1 %) injection 1 mg 1 mg (0.1 mL), subcutaneous, Once, On Mon02/05/25 at 1445, For 1 dose, Recovery (only), To be used for IV insertion ONLY * 1445 (Due) Medication Order/ lactated Ringer's infusion 50 mL/hr, intravenous, Continuous, Starting on Mon02/05/25 at 1445, For 1 hour, Recovery (only) * 1422 (Continued from OR - Provider: Latia Knowles RN) * 1521 (Due: Order Ending - Provider: Latia Knowles RN - Comment: [Order ends at this time. Document the following action when infusion is complete: Stopped]) Medication Order/ albuterol 2.5 mg /3 mL (0.083 %) nebulizer solution 2.5 mg 2.5 mg, nebulization, Once as needed, wheezing, Starting on Mon02/05/25 at 1418, For 1 dose, Recovery (only) balanced salts (BSS) intraocular solution (CANCELED) As needed, Starting on Mon02/05/25 at 1237, Intraprocedure * 1237 (Given - Provider: Susanna Garf MD) ciprofloxacin-dexamethasone (CiproDEX) otic suspension (CANCELED) As needed, Starting on Mon02/05/25 at 1238, Intraprocedure * 1238 (Given - Provider: Susanna Graf MD) droperidol (Inapsine) injection 0.625 mg 0.625 mg, intravenous, Once as needed, nausea/vomiting, second line, Starting on Mon02/05/25 at 1418, For 1 dose, Recovery (only), Monitor QTc while on therapy (2 lead monitoring) EPINEPHrine (Adrenalin) 1 mL in sodium chloride 0.9% 19 mL syringe (CANCELED) As needed, Starting on Mon02/05/25 at 1238, Intraprocedure * 1238 (Given - Provider: Susanna Graf MD) fentaNYL PF (Sublimaze) injection [...] total of 4 mg regardless of dose. * 1429 (Given - Provider: Latia Knowles RN) * 1437 (Given - Provider: Latia Knowles RN) labetaloL (Normodyne,Trandate) injection 5 mg 5 mg, intravenous, Administer over 1 Minutes, Once as needed, systolic blood pressure greater than 180 mmHg, dystolic blood pressure greater than 100 mmHg and heart rate greater than 60 BPM, Startingon Mon02/05/25 at 1418, For 1 dose, Recovery [...] If ordered PRN for pain, nurse is permittedto administer this medication for higher pain scores based on patient preference? Yes * 7619 (Given - Provider: Mei Mayorga RN) oxygen (O2) therapy inhalation, Continuous - O2/gases, oxygen, Starting on Mon02/05/25 at 1418, Recovery (only), Device: Nasal Cannula, Rate in liters per minute: Other, Custom Value: 1-6 LPM, Keep O2 Sat Above: 92% * 1422 (Start - Provider: Latia Knowles RN) * 1430 (Rate Change Medical Gas - Provider: Latia Knowles RN) * 1450 (Stopped - Provider: Latia Knowles RN) sodium chloride 0.9 % irrigation solution (CANCELED) As needed, Starting on Mon02/05/25 at 1238, Intraprocedure * 1238 (Given - Provider: Susanna Graf MD - Comment: WARMED BOTTLE [...] BE BASED ON THE PRIMARY CLINICAL RECORDS. [employer] provides no warranty or guarantee of the accuracy or completeness of information in this document.
== END 2025-05-29 13:17 | disposition home or self-care (01) ==
LOC: MAMMO 13:16
PROVIDERS: PCP Nurse Practitioner; Visit Provider Nurse Practitioner
DX: Z12.31 Encounter for screening mammogram for malignant neoplasm of breast (principal); Z80.3 Family history of malignant neoplasm of breast; Z80.8 Family history of malignant neoplasm of other organs or systems
CPT/HCPCS: 77063; 77067